=== PATIENT | female | born 1950 | race Caucasian/White ===

== ENCOUNTER 2017-12-29 02:40 | Outpatient (CLI) | payer MEDICARE, BC, SELFPAY ==
[2017-12-29 09:14] LABS: Anion Gap 7.1 mmol/L (3-11); BUN 31 mg/dL (7-18); CO2 26.9 mmol/L (21.0-32.0); CREATININE 1.81 mg/dL (0.55-1.02); Calcium 9.3 mg/dL (8.5-10.1); Chloride 106 mmol/L (98-107); Cholesterol 189 mg/dL (50-200); Estimated GFR 27.72 (mL/min/1.73m2); Glucose 108 mg/dL (70-100); HDL Cholesterol 58 mg/dL (40-60); LDL CHOLESTEROL 123 mg/dL (<100); Potassium 4.8 mmol/L (3.5-5.1); Sodium 140 mmol/L (136-145); Triglyceride 53 mg/dL (30-150)
== END 2017-12-29 03:00 ==
PROVIDERS: PCP Internal Medicine; Visit Provider Internal Medicine
DX: I10 Essential (primary) hypertension (principal)
CPT/HCPCS: 36415; 80048; 80061; 83721

== ENCOUNTER 2018-01-01 00:48 | Outpatient (CLI) | payer MEDICARE, BC, SELFPAY ==
--- NOTE | 2018-01-01 09:36 | DI.US_ITS ---
SYMPTOM/DIAGNOSIS: CIRRHOSIS, K74.60 ABDOMEN ULTRASOUND: Comparison is made with 06/08/17. Again noted is an abdominal aortic aneurysm with mural thrombus measuring 3.3 by 3.6 cm. It is not significantly changed due to differences in measurement error. The liver is normal in size and shows mild coarsening of the echo texture. No focal masses or ascites is seen. The spleen is normal in size. The kidneys appear normal. Mobile gallstones are noted. There is no gallbladder wall thickening or abnormal gallbladder distension. The pancreas is unremarkable. IMPRESSION: Mild liver changes of cirrhosis. Cholelithiasis. Stable abdominal aortic aneurysm.
== END 2018-01-01 01:08 ==
PROVIDERS: PCP Internal Medicine; Visit Provider Internal Medicine
DX: K74.60 Unspecified cirrhosis of liver (principal); K80.20 Calculus of gallbladder without cholecystitis without obstruction; I71.4 Abdominal aortic aneurysm, without rupture
CPT/HCPCS: 76700

== ENCOUNTER 2018-04-20 23:12 | Inpatient (IN) | payer MEDICARE, BC, SELFPAY ==
--- NOTE | 2018-04-20 00:30 | DI.CT_ITS ---
SYMPTOMS/DIAGNOSIS: HYPOXIC, RIGHT CRACKLES, H/O AAA, RENAL FAILURE CHEST, ABDOMINAL AND PELVIC CT: CT examination of the chest, abdomen and pelvis was performed without contrast administration. Note is made of cardiomegaly with left ventricular predominance. There are prominent bilateral septal opacities throughout both lungs and ground-glass opacities are seen, particularly dependently. There are moderate-sized bilateral pleural effusions. There is prominence of veins seen in superior mediastinum, which is a nonspecific finding. The findings are consistent with CHF. Venous dilatation may be related to CHF. Venous dilatation also appears to be present in the mesentery; due to the noncontrast study, there is uncertainty regarding dilated venous structures versus retroperitoneal adenopathy noted as well. Thoracic aorta is of normal diameter. Abdominal aorta is ectatic throughout with diameter of about 3.5 cm. Localized aneurysmal dilatation noted in the distal aorta measuring up to 4.2 cm in diameter, exact measurement is difficult due to the irregularity of the aortic wall. Exact comparison with the previous ultrasound of December 2017 is difficult, but maximal diameter of aorta is about 3.6 cm as measured on that examination. No significant iliac aneurysm seen. No other focal vascular abnormality seen. No gross mediastinal, hilar, axillary or supraclavicular adenopathy seen. Apart from possible retroperitoneal adenopathy, no additional adenopathy identified in the abdomen or pelvis. The liver and spleen are unremarkable by noncontrast criteria, as is the pancreas. Note is made of cholelithiasis without biliary dilatation. Appendix appears normal. No evidence of diverticulitis or bowel obstruction. Adrenals and kidneys are unremarkable in appearance. No evidence of urinary tract calcification or obstruction. Urinary bladder grossly unremarkable by noncontrast criteria. No significant abdominal wall hernia seen. CONCLUSION: 1. Findings consistent with CHF with pulmonary edema and bilateral pleural effusions. 2. Venous prominence noted in mediastinum and mesentery may be related to CHF. 3. Indeterminate findings, vascular prominence versus adenopathy in the retroperitoneum. 4. Ectatic abdominal aorta measuring roughly 3.5 cm in diameter with focal bilobed aneurysm of the distal abdominal aorta measuring up to 4.2 cm in diameter. No gross evidence of leaking aneurysm at this time.
[2018-04-20 23:30] VITALS: BP 193/92; BP 194/85; PULSE 101; PULSE 118; RESP 19; RESP 23; O2SAT 88; O2SAT 89
[2018-04-20 23:33] LABS: Abs Immature Grans 0.02 k/cumm (0.0-0.09); Absolute Basophil Count 0.08 k/cumm (0.0-0.2); Absolute Eosinophil Count 0.44 k/cumm (0.0-0.7); Absolute Lymphocyte Count 2.07 k/cumm (1.2-3.4); Absolute Monocyte Count 1.02 k/cumm (0.11-0.7); Absolute Neutrophil Count 6.32 k/cumm (1.2-6.7); Basophils % 0.8; Eosinophils % 4.4; HCT 39.1 % (36.0-46.0); HGB 14.1 g/dL (12.0-15.5); Immature Grans % 0.2; Lymphocytes % 20.8; Mean Corp. HGB Concentration 36.1 g/dL (32.0-36.0); Mean Corpuscular Hemoglobin 31.1 pg (27.0-33.0); Mean Corpuscular Volume 86.3 fL (80-95); Mean Platelet Volume 10.9 fL (8.0-11.0); Monocytes % 10.3; Neutrophils % 63.5; Platelet Count 327 x1000/uL (130-400); RBC 4.53 m/cumm (4.00-5.20); RBC Distribution Width 12.9 % (11.7-14.6); White Blood Cell Count 9.95 k/cumm (4.4-10.8)
--- NOTE | 2018-04-20 23:38 | ED.GENADUL_ITS ---
Discharge Plan Disposition Patient Disposition: [facility] Condition: Stable Discharge Details Chief Complaint: SOB Clinical Impression: CHF exacerbation, Acute respiratory failure, SOB (shortness of breath), Acute hypokalemia Primary Care Provider: Sanjuanita Lee ED Provider: Jerson Kellogg Home Meds and New Rx's Prescriptions: No Action atorvastatin 40 mg tablet 40 mg PO DAILY Qty: 90 RF: 3 pramipexole [Mirapex] 0.125 mg tablet 0.125 mg PO QPM Qty: 30 RF: 0 aspirin [Aspir-81] 81 MG tablet,delayed release (DR/EC) 81 mg PO DAILY RF: 0 cholecalciferol (vitamin D3) [Vitamin D3] 1,000 UNIT capsule 1,000 unit PO DAILY RF: 0 ibuprofen [Advil Liqui-Gel] 200 MG capsule 200 mg PO DAILY PRNRF: 0 calcium carbonate [Tums] 200 MG tablet,chewable 400 mg PO HS RF: 0 potassium gluconate 500 MG tablet 500 mg PO DAILY RF: 0 gabapentin 800 MG tablet 800 mg PO HS Qty: 90 RF: 3 Relax and Sleep 1 EACH tablet 1 ea PO HS RF: 0 amlodipine 10 mg tablet 5 mg PO DAILY RF: 0 furosemide 20 mg tablet 10 mg PO DAILY PRN (Reason: edema) RF: 0 metoprolol succinate 25 mg tablet extended release 24 hr 50 mg PO DAILY RF: 0 Medical Decision Making This is a pleasant 67-year-old female with a past medical history of AAA, history of ovarian cancer in the distant past, congestive heart failure on Lasix who recently just had a decrease in her Lasix, who presents today for shortness of breath. It is been present for the last 2 days. She has no history of significant respiratory difficulty in the past. She has had an associated cough that is nonproductive. She denies any recent weight gain. The family does admit to some mild swelling in the legs over the last few days. Upon patient arrival to the emergency department patient was hypoxic in the 60s. She had notable crackles and rhonchi in the right lower lung carranza. We initially started her on 10 L via nasal cannula however her oxygen did not come above 88% with this. We did start her on BiPAP and she tolerated this very well at 50% FiO2 the patient came back up to the 90s very rapidly. At this time differential includes congestive heart failure, less likely pneumonia, less likely potential pulmonary embolism, AAA. We will perform a laboratory and cardiac workup, get an x-ray for further evaluation of pulmonary etiologies. I believe the patient will require inpatient admission tonight secondary to her concerning vital signs 1:15 AM Patient's laboratory workup has returned and demonstrates notably low potassium, this will be repleted with IV and oral potassium. Renal function appears to be at her baseline which definitely represents chronic renal failure. Patient's proBNP is notably elevated at 27,000. Troponin is within normal limits at 0.06. The patient's chest x-ray and CT scan results have returned and demonstrates signs and symptoms consistent with notable pulmonary edema. I do feel that there is also some questionable infiltrate on CT and x-ray, and with her history of cough for the last few weeks I do feel that there may be a component of pneumonia playing into this in addition to her CHF component. We will cover wi th Rocephin and doxycycline for community-acquired pneumonia. Will use doxycycline secondary to her slightly prolonged QT interval. With her notably elevated proBNP I do feel that her signs and symptoms are clinically correlative with a CHF exacerbation. Patient has been given 20 of Lasix here and she is diuresing. Patient's d-dimer is also elevated however she has had a notable improvement after the BiPAP, and with the CT scan findings and the patient's clinical picture suggestive of CHF I feel that a pulmonary embolism is clinically inconsistent with her current symptomatology. Additionally the patient is not a candidate for CT angiogram at this time secondary to her renal function. We will hold off on CT angiogram at this time. Additionally the CT scan did show evidence of an abdominal aortic aneurysm measuring 3.4 x 3 cm. This appears to be consistent with her prior CT scans performed at [facility]. [facility] CT scan shows no evidence of rupture or other significant bnormality intra-abdominal. I discussed the case with Dr. Sharpe the hospitalist, he agrees with the assessment and plan. The patient will be admitted for further management. Diagnosis hypoxemia and CHF exacerbation. I have extensively reviewed the treatment plan with the patient. I have addressed all patient concerns at this time. I have also discussed the plan with the admitting physician and they agree with the current assessment and plan and have agreed to assume responsibility for the patient. All parties demonstrate verbal understanding and agreement with our assessment and plan at this time. EKG 23: 23 Rate 109, sinus tachycardia, CA is 140, QTc is slightly prolonged at 477, QRS is 94, sinus tachycardia. No significant ST elevations or depressions, no T wave inversions. No Q waves. Mild depth of QRS complex, however it is not equivalent to left ventricular hypertrophy Impression: 1. Mild cardiomegaly with mild vascular congestion. Probable mild interstitial edema. 2. Small bilateral pleural effusions. 3. Probable subsegmental atelectasis in the lung bases. Slightly increased opacity right medial lung base, correlate for any concern of superimposed pneumonia. Dictated and Authenticated by: Carrie Hernandez MD. FINDINGS: Lungs: Interlobular septal thickening, patchy groundglass opacities, dependent opacities in the lower lobes. Pleural space: Moderate, right greater than left pleural effusions. Heart: Coronary atherosclerosis. Mild cardiomegaly. Small pericardial effusion. Aorta: No aortic aneurysm. Lymph nodes: Prominent mediastinal lymph nodes. Subcarinal lymphadenopathy. Bones/joints: No acute fracture. Soft tissues: No suspicious lesions. IMPRESSION: Findings consistent with volume overload and/or CHF. Mediastinal adenopathy may be related to pulmonary edema. ABDOMEN and PELVIS: Intraperitoneal space: No free air. No significant fluid collection. Bones/joints: Degenerative changes in the spine. No acute fracture or subluxation. Soft tissues: No suspcious lesions. Vasculature: Bilobed infrarenal abdominal aortic aneurysm, measuring up to 34 x 30 mm. Suboptimally assessed without IV contrast. Moderate aortoiliac atherosclerosis. Lymph nodes: Hazy areas of low density in the retroperitoneum around the aorta, appear to surround prominent lymph nodes. No retroperitoneal hematoma. IMPRESSION: 1. Bilobed infrarenal abdominal aortic aneurysm, measuring up to 34 x 30 mm. Suboptimally assessed without IV contrast. No evidence of a significant rupture. 2. Hazy areas of low density in the retroperitoneum around the aorta, appear to surround prominent lymph nodes. No retroperitoneal hematoma. 3. Incidental findings as described. Dictated and Authenticated by: Carrie Hernandez MD. HPI General Date/Time Provider Initiated Documentation: 04/20/18 23:25 . HPI Narrative: This is a 67-year-old female with a past medical history of hypertension, high cholesterol, AAA, renal artery stenosis and chronic renal failure, as well as hepatitis B who presents today for evaluation of shortness of breath. Family states that since last night the patient has been notably short of breath. She does not have supplemental oxygen at home. She has no history of COPD. She has had a mild cough but it is been nonproductive. She denies any associated fever or chills. Patient does admit to mild back pain but denies any tearing chest pain, chest pain in general, chest heaviness, arm neck or shoulder pain. She does admit to notable shortness of breath, but denies any pleuritic chest pain. She denies any recent vomiting, retching, or diarrhea. Patient has noted over the last few days that she has been notably more hypertensive than on average. The patient denies being short of breath like this in the past. Denies PE risk factors such as recent long car rides, immobilization, recent surgery, prior history of DVT or PE, family history of PE or DVT, morbid obesity, exogenous estrogen and smoking, hemoptysis, or recent history of cancer. She did have ovarian cancer in the . She has had no recurrence since then. Her renal problems are being managed by [facility]. She did have a CT scan to reevaluate her AAA on 03/16/18 which demonstrated a fusiform abdominal aortic aneurysm with a maximal dimension of 3.7 cm in the infrarenal aorta. Additionally the patient did have some acute medicine changes. Her Lasix was recently cut from 20-10 mg daily, additionally her blood pressure medication amlodipine has been dropped from 10 mg daily to 5 mg. And 100 mg of daily metoprolol has been added. Patient denies any other modifying factors or any other complaints at this time. She denies any pertinent family history, or IV or illicit drug use. She denies any tobacco use. Related Data Home Medications Medication Instructions Recorded Confirmed aspirin [Aspir 81] 81 mg PO DAILY tab-cap 04/19/13 04/21/18 cholecalciferol (vitamin D3) 1,000 unit PO DAILY 11/28/14 04/21/18 [Vitamin D3] ibuprofen [Advil] 200 mg PO DAILY PRN 08/20/16 04/21/18 calcium carbonate [Tums] 400 mg PO HS tab.chew 06/02/17 04/21/18 gabapentin 800 mg PO HS #90 tab-cap 06/02/17 04/21/18 potassium gluconate 500 mg PO DAILY 06/02/17 04/21/18 [id number] 1 ea PO HS 12/18/17 04/21/18 [Relax & Sleep Tablet] atorvastatin 40 mg tablet 40 mg PO DAILY #90 tab 01/06/18 04/21/18 pramipexole 0.125 mg tablet 0.125 mg PO QPM #30 tab 01/06/18 04/21/18 amlodipine 5 mg PO DAILY 04/21/18 04/21/18 furosemide 10 mg PO DAILY PRN 04/21/18 04/21/18 metoprolol succinate 50 mg PO DAILY 04/21/18 04/21/18 Previous Rx's Medication Instructions Recorded gabapentin 800 mg PO HS #90 tab-cap 06/02/17 atorvastatin 40 mg tablet 40 mg PO DAILY #90 tab 01/06/18 pramipexole 0.125 mg tablet 0.125 mg PO QPM #30 tab 01/06/18 Allergies Allergy/AdvReac Type Severity Reaction Status Date / Time lisinopril AdvReac Mild Rise in Verified 04/21/18 00:11 creatinine Review of Systems Review of Systems All systems reviewed & are unremarkable except as noted in HPI and below PFSH Medical History HTN (hypertension) Hepatitis B (02/24/13) Surgical History Bilateral salpingectomy with oophorectomy Colonoscopy - MAC (09/27/12) EGD W/ BS (08/12/12) Hysterectomy, Laproscopic (~01/1984) Social History foster care: No household members: spouse housing: house lives independently: Yes number of children: 2 current occupational status: employed 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 3.ENT: Atraumatic external nose and ears. Moist MM. Neck: Symmetric, trachea midline, No thyromegaly. 4.CVS: +S1/S2, No murmurs or gallops. Peripheral pulses 2+ and equal in all extremities. Brisk capillary refill in all extremities. Radial pulses are +2 bilaterally and equal. 5.RESP: Notable tachypnea, notable crackles and rales in the right lower lung carranza. Decreased breath sounds in the right lower lung carranza. No wheezes. 6.GI: Soft, Nontender/Nondistended, No hepatosplenomegaly. No guarding or rebound. No bounding abdominal pulsatile mass. 7.MSK: Normocephalic/Atraumatic, Extremities w/o deformity or ttp No cyanosis or clubbing, Normal movement of all extremities. Minimal trace pitting edema in the lower extremities bilaterally. 8.Skin: Warm, Dry. No rashes or lesions. 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 Sensation grossly intact, no focal neurologic deficits. 10.Psych: (AAO) x3. Appropriate mood and affect
--- NOTE | 2018-04-20 23:40 | DI.RAD_ITS ---
SYMPTOMS/DIAGNOSIS: SHORTNESS OF BREATH, RIGHT CRACKLES PORTABLE AP CHEST: The heart is enlarged. There are bilateral diffuse intrapulmonary infiltrates and bilateral pleural effusions. The findings are consistent with CHF. Please see accompanying CT report.
[2018-04-20 23:46] VITALS: BP 181/87; PULSE 92; PULSE 93; RESP 20; O2SAT 96
[2018-04-20 23:50] LABS: ALT 34 U/L (12-78); AST 47 U/L (15-37); Albumin 2.1 g/dL (3.4-5.0); Alkaline Phosphatase 106 U/L (46-116); Anion Gap 8.9 mmol/L (3-11); BUN 38 mg/dL (7-18); Bilirubin, Total 0.4 mg/dL (0.2-1.0); CO2 28.1 mmol/L (21.0-32.0); CREATININE 1.87 mg/dL (0.55-1.02); Calcium 8.7 mg/dL (8.5-10.1); Chloride 93 mmol/L (98-107); Glucose 193 mg/dL (70-100); Sodium 130 mmol/L (136-145); Total Protein 6.7 g/dL (6.4-8.2); Troponin I 0.06 ng/mL (0.00-0.06)
[2018-04-20 23:51] LABS: Potassium 2.8 mmol/L (3.5-5.1)
[2018-04-20 23:55] LABS: PTT Activated 24.3 sec (21.0-31.4); Prothrombin Time 10.4 sec (9.3-11.0)
[2018-04-21] VITALS (63 sets, daily range): BP systolic 122–191; BP diastolic 76–102; PULSE 80–113; RESP 10–24; TEMP 36.5–37.2; O2SAT 78–98
[2018-04-21 00:06] LABS: D-Dimer 3636 ng/mlFEU (<500)
[2018-04-21] MEDS: Normal Saline 500 ML 1000 ML IV (00:06)
[2018-04-21] MEDS: POTASSIUM CHLORIDE 20 MEQ/100 ML BAG 50 MEQ IVPB (00:06)
[2018-04-21] MEDS: Potassium Chloride 20 MEQ TABCR 40 MEQ PO ×2 (00:06→10:28)
[2018-04-21 00:18] LABS: Magnesium 1.7 mg/dL (1.8-2.4)
--- NOTE | 2018-04-21 00:27 | DI.VRAD_ITS ---
EXAM: XR Chest, 1 View EXAM DATE/TIME: 04/20/2018 11:28 PM CLINICAL HISTORY: 67 years old, female; Signs and symptoms; Shortness of breath; Patient HX: SOB right crackles TECHNIQUE: XR of the chest, 1 view. COMPARISON: No relevant prior studies available. FINDINGS: Lungs: Probable subsegmental atelectasis in the lung bases. Slightly increased opacity right medial lung base. Pleural space: Small bilateral pleural effusions. No pneumothorax. Heart/Mediastinum: Mild cardiomegaly with mild vascular congestion. Probable mild interstitial edema. Bones/joints: No acute fracture. IMPRESSION: 1. Mild cardiomegaly with mild vascular congestion. Probable mild interstitial edema. 2. Small bilateral pleural effusions. 3. Probable subsegmental atelectasis in the lung bases. Slightly increased opacity right medial lung base, correlate for any concern of superimposed pneumonia. Dictated and Authenticated by: Carrie Hernandez MD. Ordering:JENNIFER Arthur MD
--- NOTE | 2018-04-21 00:57 | DI.VRAD_ITS ---
EXAM: CT Chest Without Contrast EXAM DATE/TIME: 04/20/2018 11:58 PM CLINICAL HISTORY: 67 years old, female; Pain; Other: Severe back pain; Prior surgery; Surgery date: 6+ months; Surgery type: Hysterectomy; Patient HX: Back pain, HX of aaa, no contrast due to elevated labs; Additional info: Creat 1.87 gfr 26.70 TECHNIQUE: Axial computed tomography images of the chest without intravenous contrast. All CT scans at this facility use at least one of these dose optimization techniques: automated exposure control; mA and/or kV adjustment per patient size (includes targeted exams where dose is matched to clinical indication); or iterative reconstruction. Coronal and sagittal reformatted images were created and reviewed. COMPARISON: CR XR PORTABLE CHEST AP 04/20/2018 11:36 PM FINDINGS: Lungs: Interlobular septal thickening, patchy groundglass opacities, dependent opacities in the lower lobes. Pleural space: Moderate, right greater than left pleural effusions. Heart: Coronary atherosclerosis. Mild cardiomegaly. Small pericardial effusion. Aorta: No aortic aneurysm. Lymph nodes: Prominent mediastinal lymph nodes. Subcarinal lymphadenopathy. Bones/joints: No acute fracture. Soft tissues: No suspicious lesions. IMPRESSION: Findings consistent with volume overload and/or CHF. Mediastinal adenopathy may be related to pulmonary edema. EXAM: CT Abdomen and Pelvis Without Contrast EXAM DATE/TIME: 04/20/2018 11:58 PM CLINICAL HISTORY: 67 years old, female; Pain; Other: Severe back pain; Prior surgery; Surgery date: 6+ months; Surgery type: Hysterectomy; Patient HX: Back pain, HX of aaa, no contrast due to elevated labs; Additional info: Creat 1.87 gfr 26.70 TECHNIQUE: Axial computed tomography images of the abdomen and pelvis without contrast. All CT scans at this facility use at least one of these dose optimization techniques: automated exposure control; mA and/or kV adjustment per patient size (includes targeted exams where dose is matched to clinical indication); or iterative reconstruction. Coronal and sagittal reformatted images were created and reviewed. COMPARISON: CR XR PORTABLE CHEST AP 04/20/2018 11:36 PM FINDINGS: Lower thorax: Regarding the lung bases, please see same day CT thorax. ABDOMEN: Liver: No mass. Gallbladder and bile ducts: Cholelithiasis. No pericholecystic edema. Pancreas: No ductal dilation. No masses. Spleen: No splenomegaly or focal lesions. Adrenals: No mass. Kidneys and ureters: No hydronephrosis. Stomach and bowel: No obstruction. No mucosal thickening. Appendix: No evidence of appendicitis. PELVIS: Bladder: The urinary bladder is distended. Reproductive: Hysterectomy versus diminutive postmenopausal uterus. ABDOMEN and PELVIS: Intraperitoneal space: No free air. No significant fluid collection. Bones/joints: Degenerative changes in the spine. No acute fracture or subluxation. Soft tissues: No suspcious lesions. Vasculature: Bilobed infrarenal abdominal aortic aneurysm, measuring up to 34 x 30 mm. Suboptimally assessed without IV contrast. Moderate aortoiliac atherosclerosis. Lymph nodes: Hazy areas of low density in the retroperitoneum around the aorta, appear to surround prominent lymph nodes. No retroperitoneal hematoma. IMPRESSION: 1. Bilobed infrarenal abdominal aortic aneurysm, measuring up to 34 x 30 mm. Suboptimally assessed without IV contrast. No evidence of a significant rupture. 2. Hazy areas of low density in the retroperitoneum around the aorta, appear to surround prominent lymph nodes. No retroperitoneal hematoma. 3. Incidental findings as described. Dictated and Authenticated by: Carrie Hernandez MD. Ordering:JENNIFER Arthur MD
[2018-04-21] MEDS: Furosemide 20 MG/2 ML VIAL IVP (01:07)
[2018-04-21] MEDS: DOXYCYCLINE 100 MG in Normal Saline 100 ML IVPB (01:26)
--- NOTE | 2018-04-21 02:12 | HPE_ITS ---
Date of service: 04/21/18 Time of Service: 01:54 Assessment and Plan (1) SOB (shortness of breath): Current visit: Yes Status: Acute Shortness of breath. I think this is all congestive heart failure. There is no documentation of prior such diagnosis so this would at this point apparently be new diagnosis. Regardless underlying etiology unclear at present though immediate precipitant may have related to dietary indiscretion as well as downward titration of diuretics. Interestingly patient appears to be improving fairly significantly at the moment without as of yet any diuresis raising the question of a transient lesion (question transient ischemia). Regardless of the underlying question turner at this point I will increase the diuresis, plan on cardiac ultrasound and will trend out the troponins. I do not see a strong case for diagnosis of pneumonia and I am not sure that continuing antibiotics is indicated. Patient has received potassium supplement here in the emergency room and will recheck that as well.. I did review advanced directives with the patient and she wishes to be full code History of Present Illness Chief Complaint: Shortness of breath Narrative: Patient is a 67-year-old female with history of hypertension, chronic renal insufficiency and peripheral edema of unspecified etiology. She denies history of congestive heart failure. She comes in with several days of orthopnea manifesting with shortness of breath with recumbency associated with dry cough. She denies any recent leg swelling. There has been some recent adjustment in her medications, she is not sure exactly what except that her baseline dose of Lasix has been reduced. She also allows that over the last several days she has been eating more robustly than usually, including various meat products. at any rate she came to the emergency room tonight with increasing shortness of breath. Initial evaluation of note for her oxygen saturations as low as the 60s and clear respiratory distress. She was initially managed with BiPAP but has had decreasing oxygen requirement since and is now on 10 L nasal cannula and feeling quite comfortable she says. She did receive 20 units of IV Lasix approximately 50 minutes ago, has had no urine output. Throughout she denies any chest pain. She is admitted for further evaluation and management let me add that she also received a dose of Rocephin and doxycycline in the emergency room out of concern on x-ray of possible pneumonitis. Past medical history hypertension renal insufficiency renal artery stenosis abdominal aneurysm history of painless jaundice 2012, unknown etiology Allergies to lisinopril (worsening renal failure) Medications Norvasc 5 daily aspirin 81 daily Lipitor 40 daily Tums, vitamin D Lasix 10 daily Neurontin 800 at bedtime as needed Advil Lopressor 50 daily potassium supplements Mirapex 0.125 at bedtime, [id number] relax and sleep medication Physical exam blood pressure 181/87 pulse 93 respirations 24 O2 sat 91-96% on 10 L temp 37.2. Patient is lying semirecumbent in the stretcher and appears entirely comfortable. HEENT is unremarkable. Neck shows jugular pulse approximately 8-10 cm lungs show fine basilar rales approximately one third up bilaterally. Heart shows PMI is not displaced but is somewhat hypodynamic. There is a regular rate and rhythm without murmurs rubs or gallops. Abdomen is soft and nontender. Pelvic and rectal exams deferred. Extremities without edema, pulses 2+ and equal Laboratory: White count is 9.9 hematocrit 39 platelet 327 d-dimer 3636 sodium 130 potassium 2.8 chloride 93 bicarb 28 BUN 38 creatinine 1.8 glucose 193 magnesium 1.7 AST 47 ALT 34 total bilirubin 0.4 troponin is 0.06 BNP 27,000 chest x-ray shows borderline heart size and mild pulmonary edema EKG shows sinus tachycardia with left atrial enlargement and nonspecific T wave flattening Review of Systems Review of Systems All systems reviewed & are unremarkable except as noted in HPI and below PFSH Medical History HTN (hypertension) Hepatitis B (02/24/13) Surgical History Bilateral salpingectomy with oophorectomy Colonoscopy - MAC (09/27/12) EGD W/ BS (08/12/12) Hysterectomy, Laproscopic (~01/1984) Family History Grandmother Essential hypertension Social History foster care: No household members: spouse housing: house lives independently: Yes number of children: 2 current occupational status: employed 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 Smoking/Tobacco Use Status: Former Tobacco Use alcohol intake: current alcohol intake frequency: holidays/special occasions only substance use type: does not use drive intox or ride w/ intox 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 Meds Home Medications Medication Instructions Recorded Confirmed Type aspirin [Aspir 81] 81 mg PO DAILY tab-cap 04/19/13 04/21/18 History cholecalciferol (vitamin D3) 1,000 unit PO DAILY 11/28/14 04/21/18 History [Vitamin D3] ibuprofen [Advil] 200 mg PO DAILY PRN 08/20/16 04/21/18 History calcium carbonate [Tums] 400 mg PO HS tab.chew 06/02/17 04/21/18 History gabapentin 800 mg PO HS #90 tab-cap 06/02/17 04/21/18 Rx potassium gluconate 500 mg PO DAILY 06/02/17 04/21/18 History [id number] 1 ea PO HS 12/18/17 04/21/18 History [Relax & Sleep Tablet] atorvastatin 40 mg tablet 40 mg PO DAILY #90 tab 01/06/18 04/21/18 Rx pramipexole 0.125 mg tablet 0.125 mg PO QPM #30 tab 01/06/18 04/21/18 Rx amlodipine 5 mg PO DAILY 04/21/18 04/21/18 History furosemide 10 mg PO DAILY PRN 04/21/18 04/21/18 History metoprolol succinate 50 mg PO DAILY 04/21/18 04/21/18 History Allergies Allergy/AdvReac Type Severity Reaction Status Date / Time lisinopril AdvReac Mild Rise in Verified 04/21/18 00:11 creatinine Exam Narrative Exam Narrative: per HPI Results Labs : 04/20/18 23:26 04/20/18 23:26 Laboratory Results - last 24 hr 04/20/18 04/20/18 04/20/18 23:26 23:26 23:26 WBC 9.95 RBC 4.53 Hgb 14.1 Hct 39.1 MCV 86.3 MCH 31.1 MCHC 36.1 H RDW 12.9 Plt Count 327 MPV 10.9 Immature Gran % 0.2 Neutrophils % 63.5 Lymphocytes % 20.8 Monocytes % 10.3 Eosinophils % 4.4 Basophils % 0.8 Absolute Neutrophils 6.32 Absolute Lymphocytes 2.07 Absolute Monocytes 1.02 H Absolute Eosinophils 0.44 Absolute Basophils 0.08 PT INR APTT D-Dimer 3636 H Sodium 130 L Potassium 2.8 L* Chloride 93 L Carbon Dioxide 28.1 Anion Gap 8.9 BUN 38 H Creatinine 1.87 H Estimated GFR/1.73 m2 26.70 Glucose 193 H Calcium 8.7 Magnesium Total Bilirubin 0.4 AST 47 H ALT 34 Alkaline Phosphatase 106 Troponin I 0.06 NT-Pro-B Natriuret Pep Total Protein 6.7 Albumin 2.1 L 04/20/18 04/20/18 04/21/18 23:26 23:26 00:00 WBC RBC Hgb Hct MCV MCH MCHC RDW Plt Count MPV Immature Gran % Neutrophils % Lymphocytes % Monocytes % Eosinophils % Basophils % Absolute Neutrophils Absolute Lymphocytes Absolute Monocytes Absolute Eosinophils Absolute Basophils PT 10.4 INR 1.0 APTT 24.3 D-Dimer Sodium Potassium Chloride Carbon Dioxide Anion Gap BUN Creatinine Estimated GFR/1.73 m2 Glucose Calcium Magnesium 1.7 L Total Bilirubin AST ALT Alkaline Phosphatase Troponin I NT-Pro-B Natriuret Pep 42376 H Total Protein Albumin Last Vital Signs Pulse 92 H 04/20/18 23:46 Resp 24 04/21/18 01:43 BP 181/87 H 04/20/18 23:46 Pulse Ox 96 04/20/18 23:46
[2018-04-21] MEDS: Furosemide 40 MG/4 ML VIAL IVP ×3 (02:31→15:55)
[2018-04-21 07:23] LABS: Potassium 3.2 mmol/L (3.5-5.1)
[2018-04-21 07:53] LABS: Bilirubin Negative (Negative); Blood Negative (Negative); Clarity Clear; Glucose Negative (Negative); Ketones Negative (Negative); Leukocyte Esterase Negative (Negative); Nitrite Negative (Negative); Specific Gravity 1.015 (1.005-1.025); Urobilinogen 0.2 EU/dL (Up TO 0.2)
[2018-04-21 07:57] LABS: Troponin I 0.08 ng/mL (0.00-0.06)
[2018-04-21 08:04] LABS: Bacteria Moderate HPF (Negative); C & S Indicated? Yes; Casts Negative LPF (Negative); Crystals Negative HPF (Negative); Epithelial Cells Few HPF (Negative); Mucus Trace (Negative); Other Cells Few Renal (Negative); RBC Negative (0-2)
[2018-04-21] MEDS: amLODIPine 10 MG TAB 5 MG PO (08:50)
[2018-04-21] MEDS: Metoprolol CR 50 MG TABCR PO (08:50)
[2018-04-21] MEDS: Aspirin E.C. 81 MG TABEC PO (08:50)
[2018-04-21] MEDS: Atorvastatin 40 MG TAB PO (08:50)
[2018-04-21] MEDS: Normal Saline Flush 10 ML SYR ×2 (10:27→15:55)
[2018-04-21] MEDS: MAGNESIUM SULFATE 2 GM/50 ML BAG IVPB (10:27)
[2018-04-21 10:41] LABS: Anion Gap 9.8 mmol/L (3-11); BUN 35 mg/dL (7-18); CO2 29.2 mmol/L (21.0-32.0); Calcium 8.3 mg/dL (8.5-10.1); Chloride 98 mmol/L (98-107); FREE T4 0.97 ng/dL (0.76-1.46); Glucose 127 mg/dL (70-100); Sodium 137 mmol/L (136-145); TSH 4.85 uIU/mL (0.358-3.74)
--- NOTE | 2018-04-21 11:55 | W.CARDCONSUL ---
Date of service: 04/21/18 Time of Service: 11:55 Assessment and Plan (1) SOB (shortness of breath): Current visit: Yes Status: Acute Signs and symptoms are consistent with acute heart failure complicated by cardiorenal syndrome. Type of heart failure most likely diastolic. Exacerbation driven by high sodium intake, accelerated hypertension and decrease in diuretics. Importance of low-sodium diet (DASH-diet), daily weight and how to dose outpatient diuretics discussed. Continue forced diuresis with goal net 500 to 1000 cc daily. An echocardiogram to determine etiology of heart failure. If LVEF less than 40% obtain stress test prior to discharge to assess for ischemia. However, decreased LV function could also be caused by uncontrolled hypertension. If blood pressure persistently greater 140, increase amlodipine to 10 mg daily. Patient is being followed by [facility] vascular regarding her renal artery stenosis. Angioplasty has been reserved for respiratory hypertension. Blood pressure remains difficult to control consider outpatient nephrology consult. Mild troponin elevation without evidence of [place] woman in acute heart failure exacerbation. Continue aspirin, metoprolol and atorvastatin without dose adjustments. History of Present Illness Chief Complaint: Shortness of breath Narrative: 67-year-old woman with 3.7 cm abdominal aortic aneurysm, renal artery stenosis, hyperlipidemia and hypertension. Over the last few days she has been feeling more shortness of breath to the point that she was unable to lie flat. Her appetite has been poor. She has been experiencing early satiety. She has not noticed much edema. 2 days prior to onset of symptoms furosemide was decreased by 50%. Over the last few days she has had sodium rich food. Blood pressure upon admission was in the 180s. She was hypoxic requiring BiPAP. She has now been transitioned to nasal cannula. IV diuresis was started with improvement in symptoms. She has lost about 5 pounds. EKG was negative for acute ischemic changes. Troponin has peaked at 0.08. Creatinine was elevated at 1.87. He denies chest pain, palpitations, syncope, claudication, focal deficits, bleeding or bruising, or symptoms. ROS: 10 point ROS was performed; all pertinent positives as mentioned in HPI, all others negative. Allergies reviewed and include lisinopril. Medications reviewed. Medications include amlodipine 5 mg daily, aspirin 81 mg daily, atorvastatin 40 mg daily, metoprolol succinate 50 mill grams daily, and furosemide 80 mg twice daily. [facility] reviewed; pertinent history as mentioned in HPI. Social history: Non-smoker. No alcohol. Family history no premature coronary artery disease. PHYSICAL EXAM General: pleasant, no acute distress HEENT: Anicteric, mucus membranes moist Neck: Supple, hepatojugular reflex present, brisk carotid upstrokes, no bruits Chest: Non-tender Lungs: Absent breath sounds at both lung bases otherwise clear to auscultation bilaterally, no crackles or wheezes Cardiac: Regular rate, regular rhythm, normal S1S2, no murmurs Abdomen: Soft, non-tender, bowel sounds present Extremities: No clubbing, cyanosis or edema, equal pulses in all 4 extremities Skin: Warm and dry, no rashes Neuro: Alert and oriented x3, grossly intact DATA Telemetry independently visualized to show sinus rhythm with occasional PVCs. No tachycardia or bradycardia arrhythmias. EKG from admission reviewed and interpreted to show sinus rhythm with normal axis and intervals and no ischemic changes. Heart rate 109, RI 140 ms, QRS 94 ms, QT 354 ms. Laboratory data reviewed and notable for a potassium 3.2, creatinine 1.87, troponin 0 0.08 and NT proBNP 27,000. 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 Smoking/Tobacco Use Status: Former Tobacco Use alcohol intake: current alcohol intake frequency: holidays/special occasions only substance use type: does not use drive intox or ride w/ intox 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 Results Last Vital Signs Temp 37.1 C 04/21/18 08:20 Pulse 88 04/21/18 09:00 Resp 14 04/21/18 10:00 BP 164/84 H 04/21/18 09:00 Pulse Ox 92 L 04/21/18 10:00 Labs : 04/20/18 23:26 04/21/18 06:50 Laboratory Results - last 24 hr 04/20/18 04/20/18 04/20/18 23:26 23:26 23:26 WBC 9.95 RBC 4.53 Hgb 14.1 Hct 39.1 MCV 86.3 MCH 31.1 MCHC 36.1 H RDW 12.9 Plt Count 327 MPV 10.9 Immature Gran % 0.2 Neutrophils % 63.5 Lymphocytes % 20.8 Monocytes % 10.3 Eosinophils % 4.4 Basophils % 0.8 Absolute Neutrophils 6.32 Absolute Lymphocytes 2.07 Absolute Monocytes 1.02 H Absolute Eosinophils 0.44 Absolute Basophils 0.08 PT INR APTT D-Dimer 3636 H Sodium 130 L Potassium 2.8 L* Chloride 93 L Carbon Dioxide 28.1 Anion Gap 8.9 BUN 38 H Creatinine 1.87 H Estimated GFR/1.73 m2 26.70 Glucose 193 H Calcium 8.7 Magnesium Total Bilirubin 0.4 AST 47 H ALT 34 Alkaline Phosphatase 106 Troponin I 0.06 NT-Pro-B Natriuret Pep Total Protein 6.7 Albumin 2.1 L TSH Free T4 Urine Color Urine Clarity Urine pH Ur Specific [place] Urine Protein Urine Ketones Urine Blood Urine Nitrite Urine Bilirubin Urine Urobilinogen Ur Leukocyte Esterase Urine RBC Urine WBC Ur Epithelial Cells Urine Crystals Urine Bacteria Urine Casts Urine Mucus Urine Other Ur Culture Indicated? Urine Glucose 04/20/18 04/20/18 04/21/18 23:26 23:26 00:00 WBC RBC Hgb Hct MCV MCH MCHC RDW Plt Count MPV Immature Gran % Neutrophils % Lymphocytes % Monocytes % Eosinophils % Basophils % Absolute Neutrophils Absolute Lymphocytes Absolute Monocytes Absolute Eosinophils Absolute Basophils PT 10.4 INR 1.0 APTT 24.3 D-Dimer Sodium Potassium Chloride Carbon Dioxide Anion Gap BUN Creatinine Estimated GFR/1.73 m2 Glucose Calcium Magnesium 1.7 L Total Bilirubin AST ALT Alkaline Phosphatase Troponin I NT-Pro-B Natriuret Pep 76634 H Total Protein Albumin TSH Free T4 Urine Color Urine Clarity Urine pH Ur Specific [place] Urine Protein Urine Ketones Urine Blood Urine Nitrite Urine Bilirubin Urine Urobilinogen Ur Leukocyte Esterase Urine RBC Urine WBC Ur Epithelial Cells Urine Crystals Urine Bacteria Urine Casts Urine Mucus Urine Other Ur Culture Indicated? Urine Glucose 04/21/18 04/21/18 04/21/18 06:50 06:50 07:05 WBC RBC Hgb Hct MCV MCH MCHC RDW Plt Count MPV Immature Gran % Neutrophils % Lymphocytes % Monocytes % Eosinophils % Basophils % Absolute Neutrophils Absolute Lymphocytes Absolute Monocytes Absolute Eosinophils Absolute Basophils PT INR APTT D-Dimer Sodium 137 Potassium 3.2 L Chloride 98 Carbon Dioxide 29.2 Anion Gap 9.8 BUN 35 H Creatinine 1.80 H Estimated GFR/1.73 m2 27.90 Glucose 127 H Calcium 8.3 L Magnesium Total Bilirubin AST ALT Alkaline Phosphatase Troponin I 0.08 H NT-Pro-B Natriuret Pep Total Protein Albumin TSH 4.85 H Free T4 0.97 Urine Color Yellow Urine Clarity Clear Urine pH 7.0 Ur Specific [place] 1.015 Urine Protein 100 H Urine Ketones Negative Urine Blood Negative Urine Nitrite Negative Urine Bilirubin Negative Urine Urobilinogen 0.2 Ur Leukocyte Esterase Negative Urine RBC Negative Urine WBC 3-5 Ur Epithelial Cells Few Urine Crystals Negative Urine Bacteria Moderate Urine Casts Negative Urine Mucus Trace Urine Other Few renal Ur Culture Indicated? Yes Urine Glucose Negative
--- NOTE | 2018-04-21 12:01 | CCONE_ITS ---
Date of service: 04/21/18 Time of Service: 11:55 Assessment and Plan (1) SOB (shortness of breath): Current visit: Yes Status: Acute Signs and symptoms are consistent with acute heart failure complicated by cardiorenal syndrome. Type of heart failure most likely diastolic. Exacerbation driven by high sodium intake, accelerated hypertension and decrease in diuretics. Importance of low-sodium diet (DASH-diet), daily weight and how to dose outpatient diuretics discussed. Continue forced diuresis with goal net 500 to 1000 cc daily. An echocardiogram to determine etiology of heart failure. If LVEF less than 40% obtain stress test prior to discharge to assess for ischemia. However, decreased LV function could also be caused by uncontrolled hypertension. If blood pressure persistently greater 140, increase amlodipine to 10 mg daily. Patient is being followed by [facility] vascular regarding her renal artery stenosis. Angioplasty has been reserved for respiratory hypertension. Blood pressure remains difficult to control consider outpatient nephrology consult. Mild troponin elevation without evidence of [place] woman in acute heart failure exacerbation. Continue aspirin, metoprolol and atorvastatin without dose adjustments. History of Present Illness Chief Complaint: Shortness of breath Narrative: 67-year-old woman with 3.7 cm abdominal aortic aneurysm, renal artery stenosis, hyperlipidemia and hypertension. Over the last few days she has been feeling more shortness of breath to the p oint that she was unable to lie flat. Her appetite has been poor. She has been experiencing early satiety. She has not noticed much edema. 2 days prior to onset of symptoms furosemide was decreased by 50%. Over the last few days she has had sodium rich food. Blood pressure upon admission was in the 180s. She was hypoxic requiring BiPAP. She has now been transitioned to nasal cannula. IV diuresis was started with improvement in symptoms. She has lost about 5 pounds. EKG was negative for acute ischemic changes. Troponin has peaked at 0.08. Creatinine was elevated at 1.87. He denies chest pain, palpitations, syncope, claudication, focal deficits, bleeding or bruising, or symptoms. ROS: 10 point ROS was performed; all pertinent positives as mentioned in HPI, all others negative. Allergies reviewed and include lisinopril. Medications reviewed. Medications include amlodipine 5 mg daily, aspirin 81 mg daily, atorvastatin 40 mg daily, metoprolol succinate 50 mill grams daily, and furosemide 80 mg twice daily. [facility] reviewed; pertinent history as mentioned in HPI. Social history: Non-smoker. No alcohol. Family history no premature coronary artery disease. PHYSICAL EXAM General: pleasant, no acute distress HEENT: Anicteric, mucus membranes moist Neck: Supple, hepatojugular reflex present, brisk carotid upstrokes, no bruits Chest: Non-tender Lungs: Absent breath sounds at both lung bases otherwise clear to auscultation bilaterally, no crackles or wheezes Cardiac: Regular rate, regular rhythm, normal S1S2, no murmurs Abdomen: Soft, non-tender, bowel sounds present Extremities: No clubbing, cyanosis or edema, equal pulses in all 4 extremities Skin: Warm and dry, no rashes Neuro: Alert and oriented x3, grossly intact DATA Telemetry independently visualized to show sinus rhythm with occasional PVCs. No tachycardia or bradycardia arrhythmias. EKG from admission reviewed and interpreted to show sinus rhythm with normal axis and intervals and no ischemic changes. Heart rate 109, [place] 140 ms, QRS 94 ms, QT 354 ms. Laboratory data reviewed and notable for a potassium 3.2, creatinine 1.87, troponin 0 0.08 and NT proBNP 27,000. 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 Smoking/Tobacco Use Status: Former Tobacco Use alcohol intake: current alcohol intake frequency: holidays/special occasions only substance use type: does not use drive intox or ride w/ intox 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 Results Last Vital Signs Temp 37.1 C 04/21/18 08:20 Pulse 88 12/26/18 09:00 Resp 14 04/21/18 10:00 BP 164/84 H 04/21/18 09:00 Pulse Ox 92 L 04/21/18 10:00 Labs : 04/20/18 23:26 04/21/18 06:50 Laboratory Results - last 24 hr 04/20/18 04/20/18 04/20/18 23:26 23:26 23:26 WBC 9.95 RBC 4.53 Hgb 14.1 Hct 39.1 MCV 86.3 MCH 31.1 MCHC 36.1 H RDW 12.9 Plt Count 327 MPV 10.9 Immature Gran % 0.2 Neutrophils % 63.5 Lymphocytes % 20.8 Monocytes % 10.3 Eosinophils % 4.4 Basophils % 0.8 Absolute Neutrophils 6.32 Absolute Lymphocytes 2.07 Absolute Monocytes 1.02 H Absolute Eosinophils 0.44 Absolute Basophils 0.08 PT INR APTT D-Dimer 3636 H Sodium 130 L Potassium 2.8 L* Chloride 93 L Carbon Dioxide 28.1 Anion Gap 8.9 BUN 38 H Creatinine 1.87 H Estimated GFR/1.73 m2 26.70 Glucose 193 H Calcium 8.7 Magnesium Total Bilirubin 0.4 AST 47 H ALT 34 Alkaline Phosphatase 106 Troponin I 0.06 NT-Pro-B Natriuret Pep Total Protein 6.7 Albumin 2.1 L TSH Free T4 Urine Color Urine Clarity Urine pH Ur Specific [place] Urine Protein Urine Ketones Urine Blood Urine Nitrite Urine Bilirubin Urine Urobilinogen Ur Leukocyte Esterase Urine RBC Urine WBC Ur Epithelial Cells Urine Crystals Urine Bacteria Urine Casts Urine Mucus Urine Other Ur Culture Indicated? Urine Glucose 04/20/18 04/20/18 04/21/18 23:26 23:26 00:00 WBC RBC Hgb Hct MCV MCH MCHC RDW Plt Count MPV Immature Gran % Neutrophils % Lymphocytes % Monocytes % Eosinophils % Basophils % Absolute Neutrophils Absolute Lymphocytes Absolute Monocytes Absolute Eosinophils Absolute Basophils PT 10.4 INR 1.0 APTT 24.3 D-Dimer Sodium Potassium Chloride Carbon Dioxide Anion Gap BUN Creatinine Estimated GFR/1.73 m2 Glucose Calcium Magnesium 1.7 L Total Bilirubin AST ALT Alkaline Phosphatase Troponin I NT-Pro-B Natriuret Pep 88673 H Total Protein Albumin TSH Free T4 Urine Color Urine Clarity Urine pH Ur Specific [place] Urine Protein Urine Ketones Urine Blood Urine Nitrite Urine Bilirubin Urine Urobilinogen Ur Leukocyte Esterase Urine RBC Urine WBC Ur Epithelial Cells Urine Crystals Urine Bacteria Urine Casts Urine Mucus Urine Other Ur Culture Indicated? Urine Glucose 04/21/18 04/21/18 04/21/18 06:50 06:50 07:05 WBC RBC Hgb Hct MCV MCH MCHC RDW Plt Count MPV Immature Gran % Neutrophils % Lymphocytes % Monocytes % Eosinophils % Basophils % Absolute Neutrophils Absolute Lymphocytes Absolute Monocytes Absolute Eosinophils Absolute Basophils PT INR APTT D-Dimer Sodium 137 Potassium 3.2 L Chloride 98 Carbon Dioxide 29.2 Anion Gap 9.8 BUN 35 H Creatinine 1.80 H Estimated GFR/1.73 m2 27.90 Glucose 127 H Calcium 8.3 L Magnesium Total Bilirubin AST ALT Alkaline Phosphatase Troponin I 0.08 H NT-Pro-B Natriuret Pep Total Protein Albumin TSH 4.85 H Free T4 0.97 Urine Color Yellow Urine Clarity Clear Urine pH 7.0 Ur Specific [place] 1.015 Urine Protein 100 H Urine Ketones Negative Urine Blood Negative Urine Nitrite Negative Urine Bilirubin Negative Urine Urobilinogen 0.2 Ur Leukocyte Esterase Negative Urine RBC Negative Urine WBC 3-5 Ur Epithelial Cells Few Urine Crystals Negative Urine Bacteria Moderate Urine Casts Negative Urine Mucus Trace Urine Other Few renal Ur Culture Indicated? Yes Urine Glucose Negative
[2018-04-21 12:32] LABS: Troponin I 0.06 ng/mL (0.00-0.06)
--- NOTE | 2018-04-21 12:40 | MERGE_ITS ---
*[facility]* *[facility]* [address] [place] [address] Date of study: 04/21/2018 Transthoracic Echocardiography M-mode, complete 2D, complete spectral Doppler, and color Doppler *STUDY CONCLUSIONS* Summary: 1. Left ventricle: The cavity size was normal. Wall thickness was increased in a pattern of mild LVH. Systolic function was moderately reduced. The estimated ejection fraction was 35-40%. Diffuse hypokinesis. Doppler parameters are consistent with elevated mean left atrial filling pressure. 2. Mitral valve: Structurally normal valve. There was moderate regurgitation. 3. Right ventricle: The cavity size was normal. Wall thickness was normal. Systolic function was normal. 4. Pulmonary arteries: Pulmonary systolic pressure was increased, in the range of 50mm Hg to 55mm Hg. 5. Pericardium, extracardiac: A trivial pericardial effusion was identified circumferential to the heart. There was a right pleural effusion. There was a left pleural effusion. *PATIENT PRESENTATION* Height: 152.4cm ((60in) ) S/D Pressure: 164 / 84 Weight: 50.8kg ((111.8lb) ) BSA: 1.47m^2 Test start time: 12:40 PM. Test stop time: 01:50 PM. 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 This study was interpreted by [facility]. Pertinent images and digital data are archived for permanent storage and are available for subsequent review. No prior study was available for comparison. Study status: Routine. Transthoracic echocardiography. M-mode, complete 2D, complete spectral Doppler, and color Doppler. A Transthoracic Echocardiogram was performed. Scanning was performed from the parasternal, apical, subcostal, and suprasternal notch acoustic windows. Images were obtained using an [id number] cardiac ultrasound machine. Image quality was adequate. Study completion: The patient tolerated the procedure well. History: PMH: CHF. *CARDIAC ANATOMY* Left ventricle: The cavity size was normal. Wall thickness was increased in a pattern of mild LVH. Systolic function was moderately reduced. The estimated ejection fraction was 35-40%. Diffuse hypokinesis. Doppler parameters are consistent with elevated mean left atrial filling pressure. Aortic valve: Trileaflet; normal thickness leaflets. Mobility was not restricted. Doppler: Transvalvular velocity was within the normal range. There was no stenosis. There was no significant regurgitation. VTI ratio of LVOT to aortic valve: 0.66. Valve area (VTI): 2cm^2. Indexed valve area (VTI): 1.3cm^2/m^2. Peak velocity ratio of LVOT to aortic valve: 0.69. Valve area (Vmax): 2.1cm^2. Indexed valve area (Vmax): 1.4cm^2/m^2. Mean velocity ratio of LVOT to aortic valve: 0.68. Valve area (Vmean): 2.1cm^2. Indexed valve area (Vmean): 1.4cm^2/m^2. Mean gradient (S): 3.4mm Hg. Peak gradient (S): 4.6mm Hg. Aorta: Aortic root: The aortic root was normal in size. Mitral valve: Structurally normal valve. Mobility was not restricted. Doppler: Transvalvular velocity was within the normal range. There was no evidence for stenosis. There was moderate regurgitation. Valve area by pressure half-time: 7.4cm^2. Indexed valve area by pressure half-time: 5cm^2/m^2. Peak gradient (D): 6.1mm Hg. Left atrium: The atrium was normal in size. Right ventricle: The cavity size was normal. Wall thickness was normal. Systolic function was normal. Pulmonic valve: Doppler: Transvalvular velocity was within the normal range. There was no evidence for stenosis. There was no significant regurgitation. Tricuspid valve: Structurally normal valve. Doppler: Transvalvular velocity was within the normal range. There was no evidence for stenosis. There was mild regurgitation. Pulmonary artery: Pulmonary systolic pressure was increased, in the range of 50mm Hg to 55mm Hg. Right atrium: The atrium was normal in size. Pericardium: A trivial pericardial effusion was identified circumferential to the heart. Systemic veins: Inferior vena cava: Well visualized. The vessel was patent and normal in size. The respirophasic diameter changes were in the normal range (greater than or equal to 50%). Pleura: There was a right pleural effusion. There was a left pleural effusion. Baseline ECG: Normal sinus rhythm. Measurements Left ventricle Value Reference LV ID, ED, PLAX 4.4 cm 3.5 - 6.0 LV ID, ES, PLAX 3.6 cm 2.1 - 4.0 LV PW thickness, ED, PLAX 1.2 cm LV end-diastolic volume, 1-p A2C 79 ml LV ejection fraction, 1-p A2C 39 % LV end-diastolic volume, 1-p A4C 85 ml LV ejection fraction, 1-p A4C 32 % LV e', lateral 0.05 m/sec LV E/e', lateral 25 LV e', medial 0.049 m/sec LV E/e', medial 25 LV e', average 0.05 m/sec LV E/e', average 25 Ventricular septum Value Reference IVS thickness, ED, PLAX 1.2 cm LVOT Value Reference LVOT ID, A-P 2.0 cm LVOT area 3 cm^2 LVOT peak velocity, S 0.74 m/sec LVOT mean velocity, S 0.62 m/sec LVOT VTI, S 15.1 cm LVOT peak gradient, S 2.2 mm Hg LVOT mean gradient, S 1.6 mm Hg Stroke volume (SV), LVOT DP 46 ml Stroke index (SV/bsa), LVOT DP 31 ml/m^2 Aortic valve Value Reference Aortic valve peak velocity, S 1.1 m/sec Aortic valve mean velocity, S 0.91 m/sec Aortic valve VTI, S 23.0 cm Aortic mean gradient, S 3.4 mm Hg Aortic peak gradient, S 4.6 mm Hg VTI ratio, LVOT/AV 0.66 Aortic valve area, VTI 2 cm^2 Velocity ratio, peak, LVOT/AV 0.69 Aortic valve area, peak velocity 2.1 cm^2 Velocity ratio, mean, LVOT/AV 0.68 Aortic valve area, mean velocity 2.1 cm^2 Aortic valve area/bsa, mean velocity 1.4 cm^2/m^2 Aorta Value Reference Aortic root ID, ED 2.8 cm Left atrium Value Reference LA ID, A-P, ES 3.0 cm LA ID/bsa, A-P 2.0 cm/m^2 <=2.2 LA area, ES, A4C 16.6 cm^2 8.8 - 23.4 LA volume/bsa, ES, 1-p A4C 27 ml/m^2 LA/aortic root ratio 1.08 Mitral valve Value Reference Mitral E-wave peak velocity 1.23 m/sec Mitral A-wave peak velocity 1.01 m/sec Mitral deceleration time (L) 103 ms 150 - 230 Mitral pressure half-time 30 ms Mitral peak gradient, D 6.1 mm Hg Mitral E/A ratio, peak 1.22 Mitral valve area, PHT, DP 7.4 cm^2 Pulmonary veins Value Reference Pulmonary vein peak velocity, S 0.26 m/sec Pulmonary vein peak velocity, D 0.65 m/sec Pulmonary vein velocity ratio, peak, 0.4 S/D Tricuspid valve Value Reference Tricuspid regurg peak velocity 3.8 m/sec Tricuspid peak RV-RA gradient 58.7 mm Hg Right atrium Value Reference RA area, ES, A4C 9.5 cm^2 8.3 - 19.5 Legend: (L) and (H) markel values outside specified reference range. I have personally reviewed the images and have reviewed and edited the reported findings. Electronically signed by Vadim Joyce 04/21/2018 14:41
--- NOTE | 2018-04-21 14:05 | PHARADMIT ---
Addendum entered by Yelitza Santos 04/24/18 13:23: Pharmacy Note Subjective Moved to M/S, exercise oximetry today Objective BP 158/80, k+ 3.2, weight down from admission Assessment Lasix dc'd-diuresed K+ 40meq po x1 Plan anticipated discharge soon Original Note: Addendum entered by Herbie Kearney III 04/23/18 12:07: Pharmacy Note Subjective Continues to improve, Was to have stress test today,canceled, no golf manager. Objective VS-OK BP-150/67 SCr-1.95 (up) K+3.6 Mag-2.1 Assessment Heparin continues Plan May be transferred to Med/Surg Original Note: Addendum entered by Grace Barrientos 04/22/18 17:01: Pharmacy Note Subjective improving per morning report Objective VS-okay Na-135(down) K+3.3(up) SCr-1.75(down) Assessment heparin ordered for DVT prophylaxis meds for stress test ordered Plan possible stress test tomorrow Original Note: Admission Pharmacy Clinical Review CHF Code Status Full Code Current Weight 47.4 kg Renally Cleared and Narrow Therapeutic Index Meds CrCl~21 ml/min QTc Value / Action Taken QTC 477 (no meds causing elevation....sinus tachy) BP Control, Fever BP 159/82, HR>100, Afebrile Electrolytes reviewed K+ 3.2 Mag 1.7 (Mag 2gram IV x1, K-dur 40meq po x1) DVT Prophylaxis only ASA 81mg...will notify MD, is ambulating Opiate Usage / Scheduled Bowel Regimen Ordered none Plt/SCr for Heparin / Enoxaparin Plt 327 SCr 1.80 INR for Warfarin INR 1.0 H/H stable, WBC/Bands H/H 14.11/39.1 WBC 9.95 Antibiotic appropriateness Rocephin/Doxy IV x 1 dose each in ED....not continued per MD Cultures and Sensitivities Urine pending Surgical ABX d/c within 24 hr DM control / Insulin Dosing BG 127 Heart Failure (Check EF%) (ABBY's, B-Block, Diuretics) Amlodipine, Lasix, Toprol IV to PO Switch Lasix Home Meds Reviewed Home Meds Not Ordered Ibuprofen (shouldn't take w/CHF), Comments wt down 3.8kg overnight, follow w/goal of 500-1000 cc output daily per Cardiovascular Disease Specialist, low salt diet, may need BP med adjustment Troponin 0.06,0.08,0.06 New onset/diagnosis of CHF and hypertension Cardiology consult/Echo today possible transfer to /
--- NOTE | 2018-04-21 14:14 | PDOC.CMIN ---
- If Service Date Differs Date of service: 04/21/18 Time of Service: 14:14 Care Management Initial Assess REASON FOR HOSPITALIZATION:: SOB PAST MEDICAL HISTORY/PAST SURGICAL HISTORY:: HTN (hypertension). Hepatitis B (02/24/13). Bilateral salpingectomy with oophorectomy. Colonoscopy - MAC (09/27/12). EGD W/ BS (08/12/12). Hysterectomy, Laproscopic (~01/1984) PREVIOUS FUNCTIONAL STATUS/SOCIAL/FAMILY SUPPORTS:: Charlene resides with her Rodolfo in [place]. 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 Charlene is independent at baseline, drives, and manage's IADL's CURRENT FUNCTIONAL STATUS:: Currently Charlene is having a lung scan, and an Echo performed when this field underwriter attempts to meet with her. ADVANCE DIRECTIVES:: On file- Rodolfo Harmon is agent, Mary Ford is alternate Has patient been provided with information about the portal?: No Did the patient sign up for the portal?: No CODE STATUS:: Full Code INSURANCE COVERAGE / FINANCIAL ISSUES:: Medicare, BCBS CURRENT HOME/COMMUNITY SERVICES/EQUIPMENT:: Currently Charlene has no services or medical equipment in the community. PRIMARY CARE PHYSICIAN:: POTENTIAL DISCHARGE NEEDS:: F/U appointment with PATIENT/FAMILY EDUCATION NEEDS:: Review DC instructions, any limitations, and ongoing DC planning discussion. Discuss 'Ask Me Three' ANTICIPATED BARRIERS TO DISCHARGE:: None identified at this time. TRANSPORTATION:: Via private vehicle PLAN:: Charlene will return home with no anticipated services. She will F/U with PCP and plan of care as prescribed. Family to transport when ready.
--- NOTE | 2018-04-21 14:42 | INITIAL_ITS ---
- If Service Date Differs Date of service: 04/21/18 Time of Service: 14:14 Care Management Initial Assess REASON FOR HOSPITALIZATION:: SOB PAST MEDICAL HISTORY/PAST SURGICAL HISTORY:: HTN (hypertension). Hepatitis B (02/24/13). Bilateral salpingectomy with oophorectomy. Colonoscopy - MAC (09/27/12). EGD W/ BS (08/12/12). Hysterectomy, Laproscopic (~01/1984) PREVIOUS FUNCTIONAL STATUS/SOCIAL/FAMILY SUPPORTS:: Charlene resides with her Rodolfo in [place]. 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 Charlene is independent at baseline, drives, and manage's IADL's CURRENT FUNCTIONAL STATUS:: Currently Charlene is having a lung scan, and an Echo performed when this service writer attempts to meet with her. ADVANCE DIRECTIVES:: On file- Rodolfo Harmon is agent, Mary Ford is alternate Has patient been provided with information about the portal?: No Did the patient sign up for the portal?: No CODE STATUS:: Full Code INSURANCE COVERAGE / FINANCIAL ISSUES:: Medicare, BCBS CURRENT HOME/COMMUNITY SERVICES/EQUIPMENT:: Currently Charlene has no services or medical equipment in the community. PRIMARY CARE PHYSICIAN:: POTENTIAL DISCHARGE NEEDS:: F/U appointment with PATIENT/FAMILY EDUCATION NEEDS:: Review DC instructions, any limitations, and ongoing DC planning discussion. Discuss 'Ask Me Three' ANTICIPATED BARRIERS TO DISCHARGE:: None identified at this time. TRANSPORTATION:: Via private vehicle PLAN:: Charlene will return home with no anticipated services. She will F/U with PCP and plan of care as prescribed. Family to transport when ready.
--- NOTE | 2018-04-21 15:56 | DI.NM_ITS ---
SYMPTOMS/DIAGNOSIS: CHF, NEW ONSET SHORTNESS OF BREATH X 24 HOURS, ? PE VENTILATION/PERFUSION LUNG SCAN: Ventilation/perfusion lung scan was performed with intravenous infusion of 4.6 mCi of technetium 99 labelled macroaggregated albumin and inhalation of 32 mCi of technetium 99 labelled DTPA. Perfusion images are within normal limits with minimal heterogeneity. Ventilation images are markedly abnormal. There is heterogeneity of ventilation. CONCLUSION: No evidence of pulmonary embolic disease.
--- NOTE | 2018-04-21 17:33 | W.PM.PROGNOT ---
Date of Service Date of service: 04/21/18 Time of Service: 16:30 Assessment and Plan (1) Acute and chronic respiratory failure with hypoxia: Current visit: Yes Status: Acute Likely due to acute CHF in addition to pulmonary hypertension. Acute CHF could be due to hypertensive emergency - which could, in turn, be due to patient's known renal artery stenosis. Continue to monitor in ICU, diuresing, monitoring I/O's, daily weights. Despite GAEL, I am starting losartan to help bring down BP's (allergic to tj-i's, per chart). Increase beta blockers. Wean O2 as tolerated. Keep in ICU overnight. VQ scan negative for PE. Clinically, I do not see any evidence for pneumonia or COPD exacerbation at this time. (2) Acute systolic CHF (congestive heart failure): Current visit: Yes Status: Acute with bilateral pleural effusions. EF 35% -40 % per echo today. Continue diuresis with lasix. Bumex may be more effective if we are not getting significant diuresis by tomorrow - as the patient has a history of cirrhosis. Beta blockers increased. Will need ischemic workup once acute respiratory failure/hypertensive emergency are handled. (3) Hypertensive emergency: Current visit: Yes Status: Acute In light of renal artery stenosis, adding ARB will likely have highest yield. Given tachycardia, I am also increasing metoprolol to 50 mg BID. (4) Renal artery stenosis: Current visit: No Status: Chronic As above - adding ARB. Monitor Cr. (5) Creatinine elevation: Current visit: No Status: Resolved Could be cardiorenal due to poor EF - or effects of hypertension/progression of renal artery stenosis. Monitor on lasix and with addition of ARB. If significant worsening of kidney function is observed, would discuss with vascular surgery re sooner placement of stent. (6) AAA (abdominal aortic aneurysm): Current visit: No Status: Chronic F/u as outpatient (7) DVT prophylaxis: Current visit: Yes Status: Acute heparin SQ given GAEL (8) Discharge planning issues: Current visit: Yes Status: Acute Full code Subjective Interval history since last seen: Ms Harmon denies any chest pain. She feels short of breath, but better. She is requiring 5 L of O2 at the time of this exam. She denies any cough, nausea, vomiting. At home, she states she did not have any fevers - she did feel hot/sweaty at the time of feeling short of breath last night and the time before, when she was trying to lay flat. She never felt like she had a cold/respiratory illness. She states she made a roast for [place] - she is not sure how much salt was put into it because she used a rub that already had salt in it. She normally watches her salt intake. She tells me blood pressure had been an issue at home and that she has known renal artery stenosis for which she might be getting a stent as outpatient. Exam Narrative Exam Narrative: General: Elderly female, sitting up in bed, talking comfortably to me HEENT: EOMI, MMM Heart: RRR, mildly tachycardic Lungs: Crackles bilaterally, L >R GI: abdomen is soft, nontender, nondistended Extremities: no edema, clubbing, or cyanosis. B feet are warm. Objective Objective Clinical Data: Abnormal lab results 04/20/18 04/20/18 04/20/18 Range/Units 23:26 23:26 23:26 MCHC 36.1 H (32.0-36.0) g/dL Absolute Monocytes 1.02 H (0.11-0.7) k/cumm D-Dimer 3636 H (<500) ng/mlFEU Sodium 130 L (136-145) mmol/L Potassium 2.8 L* (3.5-5.1) mmol/L Chloride 93 L (98-107) mmol/L BUN 38 H (7-18) mg/dL Creatinine 1.87 H (0.55-1.02) mg/dL Glucose 193 H (70-100) mg/dL Calcium (8.5-10.1) mg/dL Magnesium (1.8-2.4) mg/dL AST 47 H (15-37) U/L Troponin I (0.00-0.06) ng/mL NT-Pro-B Natriuret Pep ( - 299) pg/mL Albumin 2.1 L (3.4-5.0) g/dL TSH (0.358-3.74) uIU/mL Urine Protein (Negative) mg/dL 04/20/18 04/21/18 04/21/18 Range/Units 23:26 00:00 06:50 MCHC (32.0-36.0) g/dL Absolute Monocytes (0.11-0.7) k/cumm D-Dimer (<500) ng/mlFEU Sodium (136-145) mmol/L Potassium (3.5-5.1) mmol/L Chloride (98-107) mmol/L BUN (7-18) mg/dL Creatinine (0.55-1.02) mg/dL Glucose (70-100) mg/dL Calcium (8.5-10.1) mg/dL Magnesium 1.7 L (1.8-2.4) mg/dL AST (15-37) U/L Troponin I 0.08 H (0.00-0.06) ng/mL NT-Pro-B Natriuret Pep 48497 H ( - 299) pg/mL Albumin (3.4-5.0) g/dL TSH (0.358-3.74) uIU/mL Urine Protein (Negative) mg/dL 04/21/18 04/21/18 Range/Units 06:50 07:05 MCHC (32.0-36.0) g/dL Absolute Monocytes (0.11-0.7) k/cumm D-Dimer (<500) ng/mlFEU Sodium (136-145) mmol/L Potassium 3.2 L (3.5-5.1) mmol/L Chloride (98-107) mmol/L BUN 35 H (7-18) mg/dL Creatinine 1.80 H (0.55-1.02) mg/dL Glucose 127 H (70-100) mg/dL Calcium 8.3 L (8.5-10.1) mg/dL Magnesium (1.8-2.4) mg/dL AST (15-37) U/L Troponin I (0.00-0.06) ng/mL NT-Pro-B Natriuret Pep ( - 299) pg/mL Albumin (3.4-5.0) g/dL TSH 4.85 H (0.358-3.74) uIU/mL Urine Protein 100 H (Negative) mg/dL Vital Signs Temperature 36.8 C 04/21/18 16:45 Temperature Source Temporal Artery Scan 04/21/18 16:45 Pulse 101 H 04/21/18 16:48 Pulse 105 H 04/21/18 17:00 Respiratory Rate 21 04/21/18 17:00 Respiratory Effort Non-Labored 04/21/18 16:45 Respiratory Depth Normal 04/21/18 16:45 Respiratory Pattern Normal 04/21/18 16:45 Blood Pressure 188/95 H 04/21/18 16:48 Blood Pressure Mean 117 04/21/18 16:48 Blood Pressure Position Supine 04/21/18 03:15 Pulse Oximetry 93 L 04/21/18 17:00 Oxygen Delivery Method Hi Flow Nasal Cannula 04/21/18 03:15 Oxygen Flow Rate 11 04/21/18 03:15 Fraction of Inspired Oxygen (FIO2) 60 04/21/18 00:06 Pain Level 0 04/21/18 16:45 Intake & Output 04/20/18 04/21/18 04/21/18 23:59 11:59 23:59 Intake Total 700 / 940 240 / 940 Output Total 1500 / 1500 Balance -800 / -560 240 / -560 Weight 51.2 kg 47.4 kg Intake: IV 400 / 400 Oral 300 / 540 240 / 540 Output: Urine 1500 / 1500 Other: Urine Color Yellow Urine Appearance Clear Comment Urine was contaminated with small,brown,heme neg stool while voiding on BSC for a UA. Spec not obtained. Stool Occult Blood Negative Stool Size Small Stool Characteristics Soft Brown Voiding Methods Bedside Commode Laboratory Results WBC 9.95 k/cumm (4.4-10.8) 04/20/18 23:26 RBC 4.53 m/cumm (4.00-5.20) 04/20/18 23:26 Hgb 14.1 g/dL (12.0-15.5) 04/20/18 23:26 Hct 39.1 % (36.0-46.0) 04/20/18 23:26 MCV 86.3 fL (80-95) 04/20/18 23:26 MCH 31.1 pg (27.0-33.0) 04/20/18 23:26 MCHC 36.1 g/dL (32.0-36.0) H 04/20/18 23:26 RDW 12.9 % (11.7-14.6) 04/20/18 23:26 Plt Count 327 x1000/uL (130-400) 04/20/18 23:26 MPV 10.9 fL (8.0-11.0) 04/20/18 23: Immature Gran % 0.2 04/20/18 23: Neutrophils % 63.5 04/20/18 23:26 Lymphocytes % 20.8 04/20/18 23:26 Monocytes % 10.3 04/20/18 23:26 Eosinophils % 4.4 04/20/18 23:26 Basophils % 0.8 04/20/18 23:26 Absolute Neutrophils 6.32 k/cumm (1.2-6.7) 04/20/18 23:26 Absolute Lymphocytes 2.07 k/cumm (1.2-3.4) 04/20/18 23: Absolute Monocytes 1.02 k/cumm (0.11-0.7) H 04/20/18 23: Absolute Eosinophils 0.44 k/cumm (0.0-0.7) 04/20/18 23: Absolute Basophils 0.08 k/cumm (0.0-0.2) 04/20/18 23: PT 10.4 sec (9.3-11.0) 04/20/18 23:26 INR 1.0 (1.0-3.5) 04/20/18 23: APTT 24.3 sec (21.0-31.4) 04/20/18 23:26 D-Dimer 3636 ng/mlFEU (<500) H 04/20/18 23:26 Sodium 137 mmol/L (136-145) 04/21/18 06:50 Potassium 3.2 mmol/L (3.5-5.1) L 04/21/18 06:50 Chloride 98 mmol/L (98-107) 04/21/18 06:50 Carbon Dioxide 29.2 mmol/L (21.0-32.0) 04/21/18 06:50 Anion Gap 9.8 mmol/L (3-11) 04/21/18 06:50 BUN 35 mg/dL (7-18) H 04/21/18 06:50 Creatinine 1.80 mg/dL (0.55-1.02) H 04/21/18 06:50 Estimated GFR/1.73 m2 27.90 (mL/min/1.73m2) 04/21/18 06:50 Glucose 127 mg/dL (70-100) H 04/21/18 06:50 Calcium 8.3 mg/dL (8.5-10.1) L 04/21/18 06:50 Magnesium 1.7 mg/dL (1.8-2.4) L 04/21/18 00:00 Total Bilirubin 0.4 mg/dL (0.2-1.0) 04/20/18 23:26 AST 47 U/L (15-37) H 04/20/18 23:26 ALT 34 U/L (12-78) 04/20/18 23:26 Alkaline Phosphatase 106 U/L (46-116) 04/20/18 23:26 Troponin I 0.06 ng/mL (0.00-0.06) 04/21/18 12:09 NT-Pro-B Natriuret Pep 46253 pg/mL (-299) H 04/20/18 23:26 Total Protein 6.7 g/dL (6.4-8.2) 04/20/18 23:26 Albumin 2.1 g/dL (3.4-5.0) L 04/20/18 23:26 TSH 4.85 uIU/mL (0.358-3.74) H 04/21/18 06:50 Free T4 0.97 ng/dL (0.76-1.46) 04/21/18 06:50 Urine Color Yellow (Yellow) 04/21/18 07:05 Urine Clarity Clear 04/21/18 07:05 Urine pH 7.0 (5-8) 04/21/18 07:05 Ur Specific [place] 1.015 (1.005-1.025) 04/21/18 07:05 Urine Protein 100 mg/dL (Negative) H 04/21/18 07:05 Urine Ketones Negative mg/dL (Negative) 04/21/18 07:05 Urine Blood Negative (Negative) 04/21/18 07:05 Urine Nitrite Negative (Negative) 04/21/18 07:05 Urine Bilirubin Negative (Negative) 04/21/18 07:05 Urine Urobilinogen 0.2 EU/dL (Up TO 0.2) 04/21/18 07:05 Ur Leukocyte Esterase Negative (Negative) 04/21/18 07:05 Urine RBC Negative (0-2) 04/21/18 07:05 Urine WBC 3-5 HPF (0-5) 04/21/18 07:05 Ur Epithelial Cells Few HPF (Negative) 04/21/18 07:05 Urine Crystals Negative HPF (Negative) 04/21/18 07:05 Urine Bacteria Moderate HPF (Negative) 04/21/18 07:05 Urine Casts Negative LPF (Negative) 04/21/18 07:05 Urine Mucus Trace (Negative) 04/21/18 07:05 Urine Other Few renal (Negative) 04/21/18 07:05 Ur Culture Indicated? Yes 04/21/18 07:05 Urine Glucose Negative mg/dL (Negative) 04/21/18 07:05 VQ scan: No evidence of pulmonary embolic disease. Echo: 1. Left ventricle: The cavity size was normal. Wall thickness was increased in a pattern of mild LVH. Systolic function was moderately reduced. The estimated ejection fraction was 35-40%. Diffuse hypokinesis. Doppler parameters are consistent with elevated mean left atrial filling pressure. 2. Mitral valve: Structurally normal valve. There was moderate regurgitation. 3. Right ventricle: The cavity size was normal. Wall thickness was normal. Systolic function was normal. 4. Pulmonary arteries: Pulmonary systolic pressure was increased, in the range of 50mm Hg to 55mm Hg. 5. Pericardium, extracardiac: A trivial pericardial effusion was identified circumferential to the heart. There was a right pleural effusion. There was a left pleural effusion.
[2018-04-21] MEDS: Losartan 25 MG TAB PO (20:22)
[2018-04-21] MEDS: Metoprolol 50 MG TAB PO (20:24)
[2018-04-21] MEDS: Pramipexole 0.25 MG TAB 0.125 MG PO (20:25)
[2018-04-21] MEDS: Heparin 5,000 UNITS/ML VIAL 5000 UNITS SC (20:27)
[2018-04-21] MEDS: Gabapentin 800 MG TAB PO (22:13)
[2018-04-21] MEDS: Calcium Carbonate *TUMS* 500 MG CHEW 1000 MG PO (22:13)
[2018-04-22] VITALS (24 sets, daily range): BP systolic 125–178; BP diastolic 61–87; PULSE 74–97; RESP 15–26; TEMP 35.7–36.6; O2SAT 87–99
[2018-04-22] MEDS: Heparin 5,000 UNITS/ML VIAL 5000 UNITS SC ×3 (04:41→20:17)
--- NOTE | 2018-04-22 06:50 | DI.RAD_ITS ---
SYMPTOM/DIAGNOSIS: F/U CHF AP UPRIGHT PORTABLE CHEST: There is bibasilar atelectasis or infiltrate demonstrated. There is a tiny right and small left pleural effusion. The heart is perhaps mildly enlarged. When compared with the previous examination of 04/20, there has been a slight increase in the overall extent of the left pleural effusion and volume loss and/or infiltration or atelectasis involving the left lower lobe. The findings are consistent with congestive failure. There has, allowing for slight differences in technique, been some partial interval clearing of the lungs. Follow up images of the chest are suggested when and if clinically warranted.
[2018-04-22 07:08] LABS: Abs Immature Grans 0.02 k/cumm (0.0-0.09); Absolute Basophil Count 0.09 k/cumm (0.0-0.2); Absolute Eosinophil Count 0.56 k/cumm (0.0-0.7); Absolute Lymphocyte Count 2.02 k/cumm (1.2-3.4); Absolute Monocyte Count 1.15 k/cumm (0.11-0.7); Absolute Neutrophil Count 6.31 k/cumm (1.2-6.7); Basophils % 0.9; Eosinophils % 5.5; HCT 35.3 % (36.0-46.0); HGB 12.2 g/dL (12.0-15.5); Immature Grans % 0.2; Lymphocytes % 19.9; Mean Corp. HGB Concentration 34.6 g/dL (32.0-36.0); Mean Corpuscular Hemoglobin 30.7 pg (27.0-33.0); Mean Corpuscular Volume 88.9 fL (80-95); Mean Platelet Volume 10.6 fL (8.0-11.0); Monocytes % 11.3; Neutrophils % 62.2; Platelet Count 372 x1000/uL (130-400); RBC 3.97 m/cumm (4.00-5.20); RBC Distribution Width 13.1 % (11.7-14.6); White Blood Cell Count 10.15 k/cumm (4.4-10.8)
[2018-04-22 07:22] LABS: BUN 28 mg/dL (7-18); CREATININE 1.75 mg/dL (0.55-1.02); Calcium 8.4 mg/dL (8.5-10.1); Chloride 98 mmol/L (98-107); Estimated GFR 28.82 (mL/min/1.73m2); Glucose 103 mg/dL (70-100); Magnesium 2.2 mg/dL (1.8-2.4); Potassium 3.3 mmol/L (3.5-5.1); Sodium 135 mmol/L (136-145)
[2018-04-22] MEDS: Furosemide 40 MG/4 ML VIAL IVP ×2 (08:08→16:52)
[2018-04-22] MEDS: Normal Saline Flush 10 ML SYR (08:08)
[2018-04-22] MEDS: Aspirin E.C. 81 MG TABEC PO (08:09)
[2018-04-22] MEDS: amLODIPine 5 MG TAB PO (08:09)
[2018-04-22] MEDS: Losartan 25 MG TAB PO ×2 (08:09→20:42)
[2018-04-22] MEDS: Atorvastatin 40 MG TAB PO (08:09)
[2018-04-22] MEDS: Metoprolol 50 MG TAB PO ×2 (08:11→20:16)
[2018-04-22] MEDS: Potassium Chloride 20 MEQ TABCR 40 MEQ PO ×2 (10:34→11:00)
--- NOTE | 2018-04-22 13:44 | CHAPLAIN ---
Charlene was sitting up reading the newspaper when I visited. She was pleasant, but interested in further conversation.
--- NOTE | 2018-04-22 14:30 | PDOC.CMPRO ---
- If Service Date Differs Date of service: 04/22/18 Time of Service: 14:30 Care Management Progress Note SO: Sitting up in her chair this morning, pleasant and open to discussion. CXR today. No change in DC plan. A: 67 y/o female admitted 04/21/18 for CHF P: Charlene will return home with no services. She will F/U with PCP and plan of care as prescribed. family to transport.
--- NOTE | 2018-04-22 16:06 | W.PM.PROGNOT ---
Date of Service Date of service: 04/22/18 Time of Service: 16:08 Assessment and Plan (1) Acute and chronic respiratory failure with hypoxia: Current visit: No Status: Acute Significantly improved. Likely due to acute CHF in addition to pulmonary hypertension and bilateral pleural effusions. Continue to wean O2 as tolerated. BP controlled perfectly on current medications. (2) Acute systolic CHF (congestive heart failure): Current visit: No Status: Acute with bilateral pleural effusions. EF 35% -40 % per echo. Acute CHF could be due to hypertensive emergency due to renal artery stenosis, but ischemic etiology needs to be ruled out. Continue diuresis with lasix. Will attempt nuclear stress test tomorrow. May transfer out of ICU. (3) Hypertensive emergency: Current visit: No Status: Resolved Resolved with addition of ARB and increase of beta se. No change in therapy today. (4) Renal artery stenosis: Current visit: No Status: Chronic As above - Cr tolerating addition of ARB. Will monitor. (5) Creatinine elevation: Current visit: No Status: Acute Could be cardiorenal due to poor EF - or effects of hypertension/progression of renal artery stenosis. Monitor on lasix/ARB (6) AAA (abdominal aortic aneurysm): Current visit: No Status: Chronic F/u as outpatient (7) DVT prophylaxis: Current visit: No Status: Acute heparin SQ given GAEL (8) Discharge planning issues: Current visit: No Status: Acute Full code Subjective Interval history since last seen: Ms Harmon is feeling better today - her oxygen has been weaned down to 0.5 L. She has had no episodes of shortness of breath/orthopnea. She denies feeling feverish/hot, any chest pain, palpitations, having a cough today, nausea, or vomiting. She feels better. Exam Narrative Exam Narrative: General: Elderly female, sitting up in bed, talking comfortably to me HEENT: EOMI, MMM Heart: RRR, no m/r/g Lungs: continues to have crackles at L base; diminished on R. GI: abdomen is soft, nontender, nondistended Extremities: no edema, clubbing, or cyanosis. B feet are warm. Objective Objective Clinical Data: Abnormal lab results 04/22/18 04/22/18 Range/Units 06:30 06:30 RBC 3.97 L (4.00-5.20) m/cumm Hct 35.3 L (36.0-46.0) % Absolute Monocytes 1.15 H (0.11-0.7) k/cumm Sodium 135 L (136-145) mmol/L Potassium 3.3 L (3.5-5.1) mmol/L BUN 28 H (7-18) mg/dL Creatinine 1.75 H (0.55-1.02) mg/dL Glucose 103 H (70-100) mg/dL Calcium 8.4 L (8.5-10.1) mg/dL Vital Signs Temperature 36.3 C L 04/22/18 12:30 Temperature Source Temporal Artery Scan 04/22/18 12:30 Pulse 80 04/22/18 08:58 Pulse 80 04/22/18 08:58 Respiratory Rate 19 04/22/18 08:58 Respiratory Effort Non-Labored 04/22/18 12:30 Respiratory Depth Normal 04/22/18 12:30 Respiratory Pattern Normal 04/22/18 12:30 Blood Pressure 136/87 04/22/18 08:58 Blood Pressure Mean 96 04/22/18 08:58 Blood Pressure Position Supine 04/22/18 12:30 Pulse Oximetry 93 L 04/22/18 12:30 Oxygen Delivery Method Nasal Cannula 04/22/18 12:30 Oxygen Flow Rate 0.5 04/22/18 12:30 Fraction of Inspired Oxygen (FIO2) 60 04/21/18 00:06 Pain Level 0 04/22/18 12:30 Intake & Output 04/21/18 04/22/18 04/22/18 23:59 11:59 23:59 Intake Total 600 / 1300 240 / 240 Output Total 1875 / 3375 375 / 375 Balance -1275 / -2075 -135 / -135 Weight 46.8 kg Intake: IV 10 / 410 Oral 590 / 890 240 / 240 Output: Urine 1875 / 3375 375 / 375 Other: Urine Color Yellow Yellow Urine Appearance Clear Cloudy Urine Odor None Comment [place] remains not placed per Pt's choice with Mds aware and have advised RNsthat as long as the Pt is producing adequate urine output, the catheter does not need to be placed.Pt has been with adequate urine output with no discomfort or distention in the bladder region. Slightly cloudy urine. Mixed with stool. Stool Occult Blood Negative Stool Size Small Small Stool Characteristics Soft Soft Brown Formed Voiding Methods Bedside Commode Bedside Commode Laboratory Results WBC 10.15 k/cumm (4.4-10.8) 04/22/18 06:30 RBC 3.97 m/cumm (4.00-5.20) L 04/22/18 06:30 Hgb 12.2 g/dL (12.0-15.5) 04/22/18 06:30 Hct 35.3 % (36.0-46.0) L 04/22/18 06:30 MCV 88.9 fL (80-95) 04/22/18 06:30 MCH 30.7 pg (27.0-33.0) 04/22/18 06:30 MCHC 34.6 g/dL (32.0-36.0) 04/22/18 06:30 RDW 13.1 % (11.7-14.6) 04/22/18 06:30 Plt Count 372 x1000/uL (130-400) 04/22/18 06:30 MPV 10.6 fL (8.0-11.0) 04/22/18 06:30 Immature Gran % 0.2 04/22/18 06:30 Neutrophils % 62.2 04/22/18 06:30 Lymphocytes % 19.9 04/22/18 06:30 Monocytes % 11.3 04/22/18 06:30 Eosinophils % 5.5 04/22/18 06:30 Basophils % 0.9 04/22/18 06:30 Absolute Neutrophils 6.31 k/cumm (1.2-6.7) 04/22/18 06:30 Absolute Lymphocytes 2.02 k/cumm (1.2-3.4) 04/22/18 06:30 Absolute Monocytes 1.15 k/cumm (0.11-0.7) H 04/22/18 06:30 Absolute Eosinophils 0.56 k/cumm (0.0-0.7) 04/22/18 06:30 Absolute Basophils 0.09 k/cumm (0.0-0.2) 04/22/18 06:30 PT 10.4 sec (9.3-11.0) 04/20/18 23:26 INR 1.0 (1.0-3.5) 04/20/18 23:26 APTT 24.3 sec (21.0-31.4) 04/20/18 23:26 D-Dimer 3636 ng/mlFEU (<500) H 04/20/18 23:26 Sodium 135 mmol/L (136-145) L 04/22/18 06:30 Potassium 3.3 mmol/L (3.5-5.1) L 04/22/18 06:30 Chloride 98 mmol/L (98-107) 04/22/18 06:30 Carbon Dioxide 30.0 mmol/L (21.0-32.0) 04/22/18 06:30 Anion Gap 7.0 mmol/L (3-11) 04/22/18 06:30 BUN 28 mg/dL (7-18) H 04/22/18 06:30 Creatinine 1.75 mg/dL (0.55-1.02) H 04/22/18 06:30 Estimated GFR/1.73 m2 28.82 (mL/min/1.73m2) 04/22/18 06:30 Glucose 103 mg/dL (70-100) H 04/22/18 06:30 Calcium 8.4 mg/dL (8.5-10.1) L 04/22/18 06:30 Magnesium 2.2 mg/dL (1.8-2.4) 04/22/18 06:30 Total Bilirubin 0.4 mg/dL (0.2-1.0) 04/20/18 23:26 AST 47 U/L (15-37) H 04/20/18 23:26 ALT 34 U/L (12-78) 04/20/18 23:26 Alkaline Phosphatase 106 U/L (46-116) 04/20/18 23:26 Troponin I 0.06 ng/mL (0.00-0.06) 04/21/18 12:09 NT-Pro-B Natriuret Pep 60217 pg/mL (-299) H 04/20/18 23:26 Total Protein 6.7 g/dL (6.4-8.2) 04/20/18 23:26 Albumin 2.1 g/dL (3.4-5.0) L 04/20/18 23:26 TSH 4.85 uIU/mL (0.358-3.74) H 04/21/18 06:50 Free T4 0.97 ng/dL (0.76-1.46) 04/21/18 06:50 Urine Color Yellow (Yellow) 04/21/18 07:05 Urine Clarity Clear 04/21/18 07:05 Urine pH 7.0 (5-8) 04/21/18 07:05 Ur Specific [place] 1.015 (1.005-1.025) 04/21/18 07:05 Urine Protein 100 mg/dL (Negative) H 04/21/18 07:05 Urine Ketones Negative mg/dL (Negative) 04/21/18 07:05 Urine Blood Negative (Negative) 04/21/18 07:05 Urine Nitrite Negative (Negative) 04/21/18 07:05 Urine Bilirubin Negative (Negative) 04/21/18 07:05 Urine Urobilinogen 0.2 EU/dL (Up TO 0.2) 04/21/18 07:05 Ur Leukocyte Esterase Negative (Negative) 04/21/18 07:05 Urine RBC Negative (0-2) 04/21/18 07:05 Urine WBC 3-5 HPF (0-5) 04/21/18 07:05 Ur Epithelial Cells Few HPF (Negative) 04/21/18 07:05 Urine Crystals Negative HPF (Negative) 04/21/18 07:05 Urine Bacteria Moderate HPF (Negative) 04/21/18 07:05 Urine Casts Negative LPF (Negative) 04/21/18 07:05 Urine Mucus Trace (Negative) 04/21/18 07:05 Urine Other Few renal (Negative) 04/21/18 07:05 Ur Culture Indicated? Yes 04/21/18 07:05 Urine Glucose Negative mg/dL (Negative) 04/21/18 07:05
[2018-04-22] MEDS: Pramipexole 0.25 MG TAB 0.125 MG PO (20:15)
[2018-04-22] MEDS: Calcium Carbonate *TUMS* 500 MG CHEW 1000 MG PO (22:12)
[2018-04-22] MEDS: Gabapentin 800 MG TAB PO (22:13)
[2018-04-23] VITALS (28 sets, daily range): BP systolic 137–174; BP diastolic 61–91; PULSE 74–100; RESP 14–40; TEMP 36.3–37.5; O2SAT 87–97
[2018-04-23] MEDS: Heparin 5,000 UNITS/ML VIAL 5000 UNITS SC ×3 (04:20→19:34)
[2018-04-23 07:41] LABS: Abs Immature Grans 0.04 k/cumm (0.0-0.09); Absolute Basophil Count 0.09 k/cumm (0.0-0.2); Absolute Eosinophil Count 0.64 k/cumm (0.0-0.7); Absolute Lymphocyte Count 2.04 k/cumm (1.2-3.4); Absolute Monocyte Count 1.06 k/cumm (0.11-0.7); Absolute Neutrophil Count 5.18 k/cumm (1.2-6.7); Eosinophils % 7.1; HCT 41.6 % (36.0-46.0); HGB 14.1 g/dL (12.0-15.5); Immature Grans % 0.4; Lymphocytes % 22.5; Mean Corp. HGB Concentration 33.9 g/dL (32.0-36.0); Mean Corpuscular Hemoglobin 30.5 pg (27.0-33.0); Mean Platelet Volume 10.5 fL (8.0-11.0); Monocytes % 11.7; Neutrophils % 57.3; Platelet Count 386 x1000/uL (130-400); RBC 4.62 m/cumm (4.00-5.20); RBC Distribution Width 13.4 % (11.7-14.6); White Blood Cell Count 9.05 k/cumm (4.4-10.8)
[2018-04-23 07:55] LABS: Anion Gap 7.8 mmol/L (3-11); BUN 26 mg/dL (7-18); CO2 30.2 mmol/L (21.0-32.0); CREATININE 1.95 mg/dL (0.55-1.02); Calcium 8.9 mg/dL (8.5-10.1); Chloride 97 mmol/L (98-107); Estimated GFR 25.44 (mL/min/1.73m2); Glucose 92 mg/dL (70-100); Magnesium 2.1 mg/dL (1.8-2.4); Potassium 3.6 mmol/L (3.5-5.1); Sodium 135 mmol/L (136-145)
[2018-04-23] MEDS: Losartan 25 MG TAB PO ×2 (09:45→19:34)
[2018-04-23] MEDS: Aspirin E.C. 81 MG TABEC PO (09:45)
[2018-04-23] MEDS: Atorvastatin 40 MG TAB PO (09:45)
[2018-04-23] MEDS: Furosemide 40 MG TAB PO ×2 (09:45→16:38)
[2018-04-23] MEDS: amLODIPine 5 MG TAB PO (09:45)
[2018-04-23] MEDS: Metoprolol 50 MG TAB PO ×2 (09:45→19:34)
--- NOTE | 2018-04-23 14:44 | PDOC.CMPRO ---
- If Service Date Differs Date of service: 04/23/18 Time of Service: 14:44 Care Management Progress Note SO: Charlene is sitting up in her bed this morning, pleasant and open to discussion. Charlene will wean from oxygen today. No change in DC plan. A: 67 y/o female admitted 04/21/18 for CHF P: Charlene will return home with no services. She will F/U with PCP and plan of care as prescribed. family to transport.
--- NOTE | 2018-04-23 16:09 | W.PM.PROGNOT ---
Date of Service Date of service: 04/23/18 Time of Service: 10:45 Assessment and Plan (1) Acute and chronic respiratory failure with hypoxia: Current visit: No Status: Resolved Resolved with diuresis. Likely due to acute CHF in addition to pulmonary hypertension and bilateral pleural effusions. (2) Acute systolic CHF (congestive heart failure): Current visit: No Status: Acute with bilateral pleural effusions, now significantly better. EF 35% -40 % per echo. Acute CHF could be due to hypertensive emergency due to renal artery stenosis, but ischemic etiology needs to be ruled out. Lasix switched to PO. Will need outpatient stress test. (3) Hypertensive emergency: Current visit: No Status: Resolved Resolved with addition of ARB and increase of beta es. Monitor Cr on losartan. (lasix switche to PO/effectively decreased today). Ok to be discharged home if Cr stable tomorrow. (4) Renal artery stenosis: Current visit: No Status: Chronic As above - F/u Cr on losartan. (5) Creatinine elevation: Current visit: No Status: Acute Slightly worse post diuresis/with addition of ARB. As above. (6) AAA (abdominal aortic aneurysm): Current visit: No Status: Chronic F/u as outpatient (7) DVT prophylaxis: Current visit: No Status: Acute heparin SQ given GAEL (8) Discharge planning issues: Current visit: No Status: Acute Full code Subjective Interval history since last seen: Feels a lot better today. Denies shortness of breath, dizziness, chest pain, nausea, vomiting. Unable to get a stress test today - no curriculum and instruction specialist in the hospital. Agrees to follow up for stress test as outpatient. Exam Narrative Exam Narrative: General: Elderly female, sitting in a chair, on room air, conversant HEENT: EOMI, MMM Heart: RRR, no m/r/g Lungs: quiet crackles at L base; otherwise, diminished breath sounds b GI: abdomen is soft, nontender, nondistended Extremities: no edema, clubbing, or cyanosis. B feet are warm. Objective Objective Clinical Data: Abnormal lab results 04/23/18 04/23/18 Range/Units 07:13 07:13 Absolute Monocytes 1.06 H (0.11-0.7) k/cumm Sodium 135 L (136-145) mmol/L Chloride 97 L (98-107) mmol/L BUN 26 H (7-18) mg/dL Creatinine 1.95 H (0.55-1.02) mg/dL Vital Signs Temperature 37.2 C 04/23/18 12:39 Temperature Source Temporal Artery Scan 04/23/18 12:39 Pulse 86 04/23/18 12:40 Pulse Rhythm Regular 04/23/18 10:03 Pulse 84 04/23/18 13:00 Respiratory Rate 16 04/23/18 13:00 Respiratory Effort 04/23/18 10:03 Respiratory Depth Normal 04/23/18 10:03 Respiratory Pattern Normal 04/23/18 10:03 Blood Pressure 147/73 H 04/23/18 12:40 Blood Pressure Mean 89 04/23/18 12:40 Blood Pressure Position Supine 04/23/18 00:05 Pulse Oximetry 95 04/23/18 12:39 Oxygen Delivery Method Room Air 04/23/18 12:39 Oxygen Flow Rate 0 04/23/18 12:39 Fraction of Inspired Oxygen (FIO2) 60 04/21/18 00:06 Pain Level 0 04/23/18 12:39 Intake & Output 04/22/18 04/23/18 04/23/18 23:59 11:59 23:59 Intake Total 430 / 670 590 / 950 360 / 950 Output Total 1265 / 1640 450 / 650 200 / 650 Balance -835 / -970 140 / 300 160 / 300 Weight 46.5 kg Intake: IV 10 Oral 420 / 660 580 / 940 360 / 940 Output: Urine 1115 / 1490 450 / 650 200 / 650 Stool 150 / 150 Other: Urine Color Pale Yellow Yellow Straw Urine Appearance Clear Urine Odor Normal Comment Mixed with small stool. Unable to dip urine. Stool, Heme neg with shreds of stool Mixed with stool. Stool Occult Blood Negative Stool Size Small Moderate Stool Characteristics Soft Soft Formed Brown Voiding Methods Bedside Commode Bedside Commode Bedside Commode Laboratory Results WBC 9.05 k/cumm (4.4-10.8) 04/23/18 07:13 RBC 4.62 m/cumm (4.00-5.20) 04/23/18 07:13 Hgb 14.1 g/dL (12.0-15.5) 04/23/18 07:13 Hct 41.6 % (36.0-46.0) 04/23/18 07:13 MCV 90.0 fL (80-95) 04/23/18 07:13 MCH 30.5 pg (27.0-33.0) 04/23/18 07:13 MCHC 33.9 g/dL (32.0-36.0) 04/23/18 07:13 RDW 13.4 % (11.7-14.6) 04/23/18 07:13 Plt Count 386 x1000/uL (130-400) 04/23/18 07:13 MPV 10.5 fL (8.0-11.0) 04/23/18 07:13 Immature Gran % 0.4 04/23/18 07:13 Neutrophils % 57.3 04/23/18 07:13 Lymphocytes % 22.5 04/23/18 07:13 Monocytes % 11.7 04/23/18 07:13 Eosinophils % 7.1 04/23/18 07:13 Basophils % 1.0 04/23/18 07:13 Absolute Neutrophils 5.18 k/cumm (1.2-6.7) 04/23/18 07:13 Absolute Lymphocytes 2.04 k/cumm (1.2-3.4) 04/23/18 07:13 Absolute Monocytes 1.06 k/cumm (0.11-0.7) H 04/23/18 07:13 Absolute Eosinophils 0.64 k/cumm (0.0-0.7) 04/23/18 07:13 Absolute Basophils 0.09 k/cumm (0.0-0.2) 04/23/18 07:13 PT 10.4 sec (9.3-11.0) 04/20/18 23:26 INR 1.0 (1.0-3.5) 04/20/18 23:26 APTT 24.3 sec (21.0-31.4) 04/20/18 23:26 D-Dimer 3636 ng/mlFEU (<500) H 04/20/18 23:26 Sodium 135 mmol/L (136-145) L 04/23/18 07:13 Potassium 3.6 mmol/L (3.5-5.1) 04/23/18 07:13 Chloride 97 mmol/L (98-107) L 04/23/18 07:13 Carbon Dioxide 30.2 mmol/L (21.0-32.0) 04/23/18 07:13 Anion Gap 7.8 mmol/L (3-11) 04/23/18 07:13 BUN 26 mg/dL (7-18) H 04/23/18 07:13 Creatinine 1.95 mg/dL (0.55-1.02) H 04/23/18 07:13 Estimated GFR/1.73 m2 25.44 (mL/min/1.73m2) 04/23/18 07:13 Glucose 92 mg/dL (70-100) 04/23/18 07:13 Calcium 8.9 mg/dL (8.5-10.1) 04/23/18 07:13 Magnesium 2.1 mg/dL (1.8-2.4) 04/23/18 07:13 Total Bilirubin 0.4 mg/dL (0.2-1.0) 04/20/18 23:26 AST 47 U/L (15-37) H 04/20/18 23:26 ALT 34 U/L (12-78) 04/20/18 23:26 Alkaline Phosphatase 106 U/L (46-116) 04/20/18 23:26 Troponin I 0.06 ng/mL (0.00-0.06) 04/21/18 12:09 NT-Pro-B Natriuret Pep 56618 pg/mL (-299) H 04/20/18 23:26 Total Protein 6.7 g/dL (6.4-8.2) 04/20/18 23:26 Albumin 2.1 g/dL (3.4-5.0) L 04/20/18 23:26 TSH 4.85 uIU/mL (0.358-3.74) H 04/21/18 06:50 Free T4 0.97 ng/dL (0.76-1.46) 04/21/18 06:50 Cortisol 18 ug/dL 04/21/18 12:09 Urine Color Yellow (Yellow) 04/21/18 07:05 Urine Clarity Clear 04/21/18 07:05 Urine pH 7.0 (5-8) 04/21/18 07:05 Ur Specific [place] 1.015 (1.005-1.025) 04/21/18 07:05 Urine Protein 100 mg/dL (Negative) H 04/21/18 07:05 Urine Ketones Negative mg/dL (Negative) 04/21/18 07:05 Urine Blood Negative (Negative) 04/21/18 07:05 Urine Nitrite Negative (Negative) 04/21/18 07:05 Urine Bilirubin Negative (Negative) 04/21/18 07:05 Urine Urobilinogen 0.2 EU/dL (Up TO 0.2) 04/21/18 07:05 Ur Leukocyte Esterase Negative (Negative) 04/21/18 07:05 Urine RBC Negative (0-2) 04/21/18 07:05 Urine WBC 3-5 HPF (0-5) 04/21/18 07:05 Ur Epithelial Cells Few HPF (Negative) 04/21/18 07:05 Urine Crystals Negative HPF (Negative) 04/21/18 07:05 Urine Bacteria Moderate HPF (Negative) 04/21/18 07:05 Urine Casts Negative LPF (Negative) 04/21/18 07:05 Urine Mucus Trace (Negative) 04/21/18 07:05 Urine Other Few renal (Negative) 04/21/18 07:05 Ur Culture Indicated? Yes 04/21/18 07:05 Urine Glucose Negative mg/dL (Negative) 04/21/18 07:05
[2018-04-23] MEDS: Pramipexole 0.25 MG TAB 0.125 MG PO (19:33)
[2018-04-23] MEDS: Gabapentin 800 MG TAB PO (22:23)
[2018-04-23] MEDS: Calcium Carbonate *TUMS* 500 MG CHEW 1000 MG PO (22:24)
[2018-04-24] VITALS (8 sets, daily range): BP systolic 131–163; BP diastolic 67–94; PULSE 72–103; RESP 14–21; TEMP 36.1–37.6; O2SAT 90–94
[2018-04-24] MEDS: Heparin 5,000 UNITS/ML VIAL 5000 UNITS SC ×3 (03:45→19:37)
[2018-04-24 07:09] LABS: HCT 38.5 % (36.0-46.0); HGB 13.1 g/dL (12.0-15.5); Mean Corpuscular Hemoglobin 30.5 pg (27.0-33.0); Mean Corpuscular Volume 89.5 fL (80-95); Mean Platelet Volume 10.5 fL (8.0-11.0); Platelet Count 408 x1000/uL (130-400); RBC Distribution Width 13.2 % (11.7-14.6); White Blood Cell Count 8.13 k/cumm (4.4-10.8)
[2018-04-24 07:18] LABS: Anion Gap 7.8 mmol/L (3-11); BUN 26 mg/dL (7-18); CO2 28.2 mmol/L (21.0-32.0); Calcium 8.9 mg/dL (8.5-10.1); Chloride 99 mmol/L (98-107); Estimated GFR 26.21 (mL/min/1.73m2); Glucose 100 mg/dL (70-100); Potassium 3.2 mmol/L (3.5-5.1); Sodium 135 mmol/L (136-145)
[2018-04-24] MEDS: Atorvastatin 40 MG TAB PO (07:46)
[2018-04-24] MEDS: amLODIPine 5 MG TAB PO (07:47)
[2018-04-24] MEDS: Metoprolol 50 MG TAB PO ×2 (07:47→19:38)
[2018-04-24] MEDS: Furosemide 40 MG TAB PO (07:47)
[2018-04-24] MEDS: Aspirin E.C. 81 MG TABEC PO (07:47)
[2018-04-24] MEDS: Losartan 25 MG TAB PO ×2 (07:47→19:38)
--- NOTE | 2018-04-24 08:35 | PDOC.CMPRO ---
- If Service Date Differs Date of service: 04/24/18 Time of Service: 08:35 Care Management Progress Note SO: Charlene is sitting in bed when CM visits this morning. She is engaged in conversation, makes good eye contact, and is talkative. Charlene reports that she is feeling well and her plan is to leave the hospital today. Her O2 sat is 93% on RA and she denies SOB or pain. A: 67 y/o female admitted 04/21/18 for CHF P: Charlene will return home with no services when medically ready per MD. Anticipate patient will follow up with her PCP and plan of care as prescribed. Charlene will transport via private vehicle with her , Nicholas. CM will continue to offer support to patient and care team regarding discharge planning and disposition.
--- NOTE | 2018-04-24 08:39 | CMPROGNOTE_ITS ---
- If Service Date Differs Date of service: 04/24/18 Time of Service: 08:35 Care Management Progress Note SO: Charlene is sitting in bed when CM visits this morning. She is engaged in conversation, makes good eye contact, and is talkative. Charlene reports that she is feeling well and her plan is to leave the hospital today. Her O2 sat is 93% on RA and she denies SOB or pain. A: 67 y/o female admitted 04/21/18 for CHF P: Charlene will return home with no services when medically ready per MD. Anticipa te patient will follow up with her PCP and plan of care as prescribed. Charlene will transport via private vehicle with her , Nicholas. CM will continue to offer support to patient and care team regarding discharge planning and disposition.
[2018-04-24] MEDS: Potassium Chloride 20 MEQ TABCR 40 MEQ PO (08:50)
--- NOTE | 2018-04-24 15:55 | W.PM.PROGNOT ---
Date of Service Date of service: 04/24/18 Time of Service: 16:33 Assessment and Plan (1) Acute and chronic respiratory failure with hypoxia: In setting of hypertensive emergency. Appears resolved. (2) Acute systolic CHF (congestive heart failure): With bilateral pleural effusions, now significantly better. LVEF of 35-40% per echocardiogram. Patient's acute CHF may be in the setting of hypertensive emergency, but patient also reports dietary indiscretion and a decrease in Lasix dose prior to her admission. Currently appears euvolemic - continue beta-se therapy, and introduced ARB given history of renal artery stenosis. Continue oral Lasix. Aim for improved blood pressure control. Minimal elevation in troponin in the setting of increased demand and poor clearance with worsening renal function, likely demand ischemia, however patient may benefit from outpatient stress testing. (3) Hypertensive emergency: Appears resolved, with vastly improved blood pressures. Continue ARB, beta-se, and calcium channel se therapy. Continue to adjust dosing for optimal blood pressure control. (4) Renal artery stenosis: ARB initiated. Monitor creatinine. Apparently followed at [facility] by vascular. (5) Creatinine elevation: Elevated creatinine, appears to be at baseline. Patient has a creatinine as high as 1.8 in December of this year, with current values of 1.7-1.9. Likely etiology may be hypertensive +/- potential cardiorenal syndrome inpatient with a diagnosis of renal artery stenosis. Creatinine appears stable and unchanged despite introduction of losartan. Monitor creatinine again tomorrow morning to ensure stability. (6) AAA (abdominal aortic aneurysm): Noted, under surveillance. Patient is on daily aspirin and high potency statin therapy, as well as beta-es. Low-dose ARB was introduced recently as well. (7) DVT prophylaxis: SC heparin.
--- NOTE | 2018-04-24 16:03 | PGE_ITS ---
Date of Service Date of service: 04/24/18 Time of Service: 16:33 Assessment and Plan (1) Acute and chronic respiratory failure with hypoxia: In setting of hypertensive emergency. Appears resolved. (2) Acute systolic CHF (congestive heart failure): With bilateral pleural effusions, now significantly better. LVEF of 35- 40% per echocardiogram. Patient's acute CHF may be in the setting of hypertensive emergency, but patient also reports dietary indiscretion and a decrease in Lasix dose prior to her admission. Currently appears euvolemic - continue beta-se therapy, and introduced ARB given history of renal artery stenosis. Continue oral Lasix. Aim for improved blood pressure control. Minimal elevation in troponin in the setting of increased demand and poor clearance with worsening renal function, likely demand ischemia, however patient may benefit from outpatient stress testing. (3) Hypertensive emergency: Appears resolved, with vastly improved blood pressures. Continue ARB, beta-se, and calcium channel se therapy. Continue to adjust dosing for optimal blood pressure control. (4) Renal artery stenosis: ARB initiated. Monitor creatinine. Apparently followed at [facility] by vascular. (5) Creatinine elevation: Elevated creatinine, appears to be at baseline. Patient has a creatinine as high as 1.8 in December of this year, with current values of 1.7-1.9. Likely etiology may be hypertensive +/- potential cardiorenal syndrome inpatient with a diagnosis of renal artery stenosis. Creatinine appears stable and unchanged despite introduction of losartan. Monitor creatinine again tomorrow morning to ensure stability. (6) AAA (abdominal aortic aneurysm): Noted, under surveillance. Patient is on daily aspirin and high potency statin therapy, as well as beta-se. Low-dose ARB was introduced recently as well. (7) DVT prophylaxis: SC heparin.
[2018-04-24] MEDS: Pramipexole 0.25 MG TAB 0.125 MG PO (19:37)
[2018-04-24] MEDS: Calcium Carbonate *TUMS* 500 MG CHEW 1000 MG PO (21:28)
[2018-04-24] MEDS: Gabapentin 800 MG TAB PO (21:28)
[2018-04-25 03:50] VITALS: BP 156/75; PULSE 83; RESP 18; TEMP 37.2; O2SAT 94
[2018-04-25] MEDS: Heparin 5,000 UNITS/ML VIAL 5000 UNITS SC ×2 (03:55→12:42)
[2018-04-25 07:35] VITALS: BP 155/80; PULSE 82; RESP 14; TEMP 37.2; O2SAT 93
[2018-04-25 07:41] LABS: Anion Gap 8.7 mmol/L (3-11); BUN 22 mg/dL (7-18); CO2 28.3 mmol/L (21.0-32.0); CREATININE 2.05 mg/dL (0.55-1.02); Calcium 9.1 mg/dL (8.5-10.1); Chloride 98 mmol/L (98-107); Estimated GFR 24.01 (mL/min/1.73m2); Glucose 95 mg/dL (70-100); Potassium 3.5 mmol/L (3.5-5.1); Sodium 135 mmol/L (136-145)
[2018-04-25] MEDS: Metoprolol 50 MG TAB PO (07:45)
[2018-04-25] MEDS: Atorvastatin 40 MG TAB PO (07:45)
[2018-04-25] MEDS: amLODIPine 5 MG TAB PO ×2 (07:45→10:06)
[2018-04-25] MEDS: Aspirin E.C. 81 MG TABEC PO (07:45)
[2018-04-25] MEDS: Losartan 25 MG TAB PO (07:45)
[2018-04-25] MEDS: Furosemide 40 MG TAB PO (07:46)
[2018-04-25 07:50] VITALS: O2SAT 95
[2018-04-25] MEDS: Potassium Chloride 20 MEQ TABCR 40 MEQ PO (10:05)
[2018-04-25 13:14] VITALS: BP 133/67; PULSE 82; RESP 14; TEMP 37.4; O2SAT 93
--- NOTE | 2018-04-25 13:38 | PDOC.CMDIS ---
- If Service Date Differs Date of service: 04/25/18 Time of Service: 13:38 LACE Index Scoring Tool - Questions: Length of Stay (in days): 4 - 6 Acuity (Admit via E.D.?): Yes Comorbidities: Congestive Heart Failure E.D. Visits: 1 - Answers: Total Score: 10 Risk of Readmission: High Risk Care Management Discharge Reason for Hospitalization: SOB Discharge Plan: Charlene will discharge home when medically ready per MD. Anticipate patient will discharge with no services and follow up with her PCP. Charlene will need f/u lab work within a few days and is agreeable to such. Charlene will transport with her , Rodolfo. Patient/Family Education Needs: Discharge education, any limitations, and follow up plan of care. Ask Me Three discussion.
--- NOTE | 2018-04-25 14:57 | W.PM.DS.N ---
Date of service: 04/25/18 Time of Service: 14:59 DS: Diagnosis Discharge Diagnosis (1) Acute systolic CHF (congestive heart failure): Status: Acute (2) Hypertensive emergency: Status: Resolved (3) Renal artery stenosis: Status: Chronic (4) Creatinine elevation: Status: Acute Discharge Plan Disposition Condition: Stable Discharge Details Reason For Visit: CHF Admit Date/Time: 04/21/18 02:12 Admit Provider: Regan Sharpe Attending Provider: Regan Sharpe Primary Care Provider: Sanjuanita Lee Hospital Course Hospital Course: CC: SOB HPI: 67-year-old woman with a prior history of CHF and Renal Artery Stenosis, admitted from [facility] Emergency Department on 04/21 with a diagnosis of Hypertensive Emergency with Acute CHF Exacerbation. Mrs. Harmon has a history of hypertension, chronic renal insufficiency and peripheral edema of unspecified etiology. She follows with Vascular Surgery at [facility] for a diagnosis of YING, for which she is under surveillance, and has a history of systolic CHF with an EF of 35%. Other diagnosis includes AAA, Osteopenia, and dyslipidemia. She initially presented with several days of orthopnea manifesting with shortness of breath with recumbency associated with a dry cough. She was recently started on low dose oral lasix as an outpatient, with this dose then decreased a few days prior to her admission. She also had been significantly hypertensive at home by her blood pressure journal. She was initially managed with BiPAP, diuresis, and high level of supplemental oxygen, but has since vastly improved. With med changes she is now on room air and ambulating quite freely and without any oxygen needs. She has also diuresed well. Her blood pressure is vastly improved at time of discharge. Hospital Course: (1) Acute respiratory failure with hypoxia: In setting of hypertensive emergency in patient with systolic CHF. Resolved. (2) Acute systolic CHF (congestive heart failure): With bilateral pleural effusions, now significantly improved. LVEF of 35-40% per echocardiogram. Patient's acute CHF may be in the setting of hypertensive emergency, but patient also reports dietary indiscretion and a decrease in Lasix dose prior to her admission. Currently appears euvolemic - continue beta-se therapy, and introduced ARB given history of renal artery stenosis. Continue oral Lasix. Aim for improved blood pressure control. Minimal elevation in troponin in the setting of increased demand and poor clearance with worsening renal function, likely demand ischemia, however patient may benefit from outpatient stress testing in the future. (3) Hypertensive emergency: Appears resolved, with vastly improved blood pressures. Continue ARB, beta-se, and calcium channel se therapy, now maxed. Blood pressure prior to discharge is vastly improved and in the 130's range systolic. Continue to adjust dosing for optimal blood pressure control as outpatient. (4) Renal artery stenosis: ARB and Lasix initiated. Monitor creatinine - Mrs. Harmon has an expected and mild increase in her creatinine, from 1.8 to 2 with addition of Losartan and active diuresis. Patient's creatinine needs to be carefully monitored to ensure that a large decline in GFR does not occur - however, current minmal elevation in creatinine is expected, and ABBY-I/ARB therapy is indicated given patient's diagnosis of YING, as is lasix. Will ask patient to continue to monitor bp carefully at home. Followed at [facility] by vascular. (5) Creatinine elevation: Elevated creatinine, appears to be at baseline. Patient has a creatinine as high as 1.8 in December of this year, with current values of 1.7-1.9. Likely etiology may be hypertensive +/- potential cardiorenal syndrome in patient with a diagnosis of renal artery stenosis. Plan as above. Recheck BMP in 2-3 days. (6) AAA (abdominal aortic aneurysm): Noted, under surveillance. Patient is on daily aspirin and high potency statin therapy, as well as beta-se. Low-dose ARB was introduced recently as well. Home Meds and New Rx's Prescriptions: New furosemide 40 mg Tablet 20 mg PO DAILY Qty: 30 RF: 0 losartan 25 mg Tablet 25 mg PO DAILY Qty: 30 RF: 0 amlodipine 10 mg Tablet 10 mg PO DAILY Qty: 30 RF: 0 Continued atorvastatin 40 mg tablet 40 mg PO DAILY Qty: 90 RF: 3 pramipexole [Mirapex] 0.125 mg tablet 0.125 mg PO QPM Qty: 30 RF: 0 aspirin [Aspir-81] 81 MG tablet,delayed release (DR/EC) 81 mg PO DAILY RF: 0 cholecalciferol (vitamin D3) [Vitamin D3] 1,000 UNIT capsule 1,000 unit PO DAILY RF: 0 calcium carbonate [Tums] 200 MG tablet,chewable 400 mg PO HS RF: 0 gabapentin 800 MG tablet 800 mg PO HS Qty: 90 RF: 3 Relax and Sleep 1 EACH tablet 1 ea PO HS RF: 0 metoprolol succinate 25 mg tablet extended release 24 hr 50 mg PO DAILY RF: 0 Discontinued ibuprofen [Advil Liqui-Gel] 200 MG capsule 200 mg PO DAILY PRNRF: 0 potassium gluconate 500 MG tablet 500 mg PO DAILY RF: 0 amlodipine 10 mg tablet 5 mg PO DAILY RF: 0 furosemide 20 mg tablet 10 mg PO DAILY PRN (Reason: edema) RF: 0 Exam Narrative Exam Narrative: General: Patient appears comfortable, AAOX3, NAD Neck: Supple CV: Regular, nontachycardic, S1S2, No rubs, murmurs, or gallops. Pulmonary: Minimal bibasilar crackles, otherwise clear to auscultation. Abdomen: + Bowel Sounds, soft, nontender, nondistended Vascular: No lower extremity edema Psych: Normal mood and affect. DS: Data Vitals/I&O Vitals and I&O: Vital Signs Temperature 37.4 C 04/25/18 13:14 Temperature Source Tympanic 04/25/18 13:14 Pulse 82 04/25/18 13:14 Pulse Rhythm Regular 04/25/18 07:35 Pulse 90 04/23/18 19:06 Respiratory Rate 14 04/25/18 13:14 Respiratory Effort 04/25/18 07:35 Respiratory Depth Normal 04/25/18 07:35 Respiratory Pattern Normal 04/25/18 07:35 Blood Pressure 133/67 04/25/18 13:14 Blood Pressure Mean 106 04/23/18 19:06 Blood Pressure Position Supine 04/23/18 00:05 Pulse Oximetry 93 L 04/25/18 13:14 Oxygen Delivery Method Room Air 04/25/18 13:14 Oxygen Flow Rate 0 04/25/18 13:14 Fraction of Inspired Oxygen (FIO2) 60 04/21/18 00:06 Pain Level 0 04/25/18 13:14 Comment 04/25/18 03:50 Intake & Output 04/24/18 04/25/18 04/25/18 23:59 11:59 23:59 Intake Total 1080 / 1200 1240 / 1240 Balance 1080 / 1200 1240 / 1240 Weight 46.6 kg Intake: Oral 1080 / 1200 1240 / 1240 Other: Comment pt voiding independently in the toilet pt voiding independently in the toilet Stool Size Small Stool Characteristics Liquid Voiding Methods Toilet Toilet Completed studies during hospitalization [Text1]: CT chest/abd/pel wo 04/20/2018 SYMPTOMS/DIAGNOSIS: HYPOXIC, RIGHT CRACKLES, H/O AAA, RENAL FAILURE CHEST, ABDOMINAL AND PELVIC CT: CT examination of the chest, abdomen and pelvis was performed without contrast administration. Note is made of cardiomegaly with left ventricular predominance. There are prominent bilateral septal opacities throughout both lungs and ground-glass opacities are seen, particularly dependently. There are moderate-sized bilateral pleural effusions. There is prominence of veins seen in superior mediastinum, which is a nonspecific finding. The findings are consistent with CHF. Venous dilatation may be related to CHF. Venous dilatation also appears to be present in the mesentery; due to the noncontrast study, there is uncertainty regarding dilated venous structures versus retroperitoneal adenopathy noted as well. Thoracic aorta is of normal diameter. Abdominal aorta is ectatic throughout with diameter of about 3.5 cm. Localized aneurysmal dilatation noted in the distal aorta measuring up to 4.2 cm in diameter, exact measurement is difficult due to the irregularity of the aortic wall. Exact comparison with the previous ultrasound of December 2017 is difficult, but maximal diameter of aorta is about 3.6 cm as measured on that examination. No significant iliac aneurysm seen. No other focal vascular abnormality seen. No gross mediastinal, hilar, axillary or supraclavicular adenopathy seen. Apart from possible retroperitoneal adenopathy, no additional adenopathy identified in the abdomen or pelvis. The liver and spleen are unremarkable by noncontrast criteria, as is the pancreas. Note is made of cholelithiasis without biliary dilatation. Appendix appears normal. No evidence of diverticulitis or bowel obstruction. Adrenals and kidneys are unremarkable in appearance. No evidence of urinary tract calcification or obstruction. Urinary bladder grossly unremarkable by noncontrast criteria. No significant abdominal wall hernia seen. CONCLUSION: 1. Findings consistent with CHF with pulmonary edema and bilateral pleural effusions. 2. Venous prominence noted in mediastinum and mesentery may be related to CHF. 3. Indeterminate findings, vascular prominence versus adenopathy in the retroperitoneum. 4. Ectatic abdominal aorta measuring roughly 3.5 cm in diameter with focal bilobed aneurysm of the distal abdominal aorta measuring up to 4.2 cm in diameter. No gross evidence of leaking aneurysm at this time. XR portable chest AP 04/20/2018 SYMPTOMS/DIAGNOSIS: SHORTNESS OF BREATH, RIGHT CRACKLES PORTABLE AP CHEST: The heart is enlarged. There are bilateral diffuse intrapulmonary infiltrates and bilateral pleural effusions. The findings are consistent with CHF. Please see accompanying CT report. Exam(s) a US:US echocardiogram Date of study: 04/21/2018 Transthoracic Echocardiography M-mode, complete 2D, complete spectral Doppler, and color Doppler *STUDY CONCLUSIONS* Summary: 1. Left ventricle: The cavity size was normal. Wall thickness was increased in a pattern of mild LVH. Systolic function was moderately reduced. The estimated ejection fraction was 35-40%. Diffuse hypokinesis. Doppler parameters are consistent with elevated mean left atrial filling pressure. 2. Mitral valve: Structurally normal valve. There was moderate regurgitation. 3. Right ventricle: The cavity size was normal. Wall thickness was normal. Systolic function was normal. 4. Pulmonary arteries: Pulmonary systolic pressure was increased, in the range of 50mm Hg to 55mm Hg. 5. Pericardium, extracardiac: A trivial pericardial effusion was identified circumferential to the heart. There was a right pleural effusion. There was a left pleural effusion. NM lung scan vent & perf grp SYMPTOMS/DIAGNOSIS: CHF, NEW ONSET SHORTNESS OF BREATH X 24 HOURS, ? PE VENTILATION/PERFUSION LUNG SCAN: Ventilation/perfusion lung scan was performed with intravenous infusion of 4.6 mCi of technetium 99 labelled macroaggregated albumin and inhalation of 32 mCi of technetium 99 labelled DTPA. Perfusion images are within normal limits with minimal heterogeneity. Ventilation images are markedly abnormal. There is heterogeneity of ventilation. CONCLUSION: No evidence of pulmonary embolic disease. XR portable chest AP 04/22/2018 SYMPTOM/DIAGNOSIS: F/U CHF AP UPRIGHT PORTABLE CHEST: There is bibasilar atelectasis or infiltrate demonstrated. There is a tiny right and small left pleural effusion. The heart is perhaps mildly enlarged. When compared with the previous examination of 04/20, there has been a slight increase in the overall extent of the left pleural effusion and volume loss and/or infiltration or atelectasis involving the left lower lobe. The findings are consistent with congestive failure. There has, allowing for slight differences in technique, been some partial interval clearing of the lungs. Follow up images of the chest are suggested when and if clinically warranted. Labs on day of discharge: Labs from last 24 hours 04/25/18 06:35 Sodium 135 L Potassium 3.5 Chloride 98 Carbon Dioxide 28.3 Anion Gap 8.7 BUN 22 H Creatinine 2.05 H Estimated GFR/1.73 m2 24.01 Glucose 95 Calcium 9.1 Magnesium 2.0 PFSH Medical History HTN (hypertension) Hepatitis B (02/24/13) Surgical History Bilateral salpingectomy with oophorectomy Colonoscopy - MAC (09/27/12) EGD W/ BS (08/12/12) Hysterectomy, Laproscopic (~01/1984) Family History Grandmother Essential hypertension Social History foster care: No household members: spouse housing: house lives independently: Yes number of children: 2 current occupational status: employed 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
--- NOTE | 2018-04-25 15:17 | DSE_ITS ---
Date of service: 04/25/18 Time of Service: 14:59 DS: Diagnosis Discharge Diagnosis (1) Acute systolic CHF (congestive heart failure): Status: Acute (2) Hypertensive emergency: Status: Resolved (3) Renal artery stenosis: Status: Chronic (4) Creatinine elevation: Status: Acute Discharge Plan Disposition Condition: Stable Discharge Details Reason For Visit: CHF Admit Date/Time: 04/21/18 02:12 Admit Provider: Regan Sharpe Attending Provider: Regan Sharpe Primary Care Provider: Sanjuanita Lee Hospital Course Hospital Course: CC: SOB HPI: 67-year-old woman with a prior history of CHF and Renal Artery Stenosis, admitted from [facility] Emergency Department on 04/21 with a diagnosis of Hypertensive Emergency with Acute CHF Exacerbation. Mrs. Harmon has a history of hypertension, chronic renal insufficiency and pe ripheral edema of unspecified etiology. She follows with Vascular Surgery at [facility] for a diagnosis of YING, for which she is under surveillance, and has a history of systolic CHF with an EF of 35%. Other diagnosis includes AAA, Osteopenia, and dyslipidemia. She initially presented with several days of orthopnea manifesting with shortness of breath with recumbency associated with a dry cough. She was recently started on low dose oral lasix as an outpatient, with this dose then decreased a few days prior to her admission. She also had been significantly hypertensive at home by her blood pressure journal. She was initially managed with BiPAP, diuresis, and high level of supplemental oxygen, but has since vastly improved. With med changes she is now on room air and ambulating quite freely and without any oxygen needs. She has also diuresed well. Her blood pressure is vastly improved at time of discharge. Hospital Course: (1) Acute respiratory failure with hypoxia: In setting of hypertensive emergency in patient with systolic CHF. Resolved. (2) Acute systolic CHF (congestive heart failure): With bilateral pleural effusions, now significantly improved. LVEF of 35- 40% per echocardiogram. Patient's acute CHF may be in the setting of hypertensive emergency, but patient also reports dietary indiscretion and a decrease in Lasix dose prior to her admission. Currently appears euvolemic - continue beta-se therapy, and introduced ARB given history of renal artery stenosis. Continue oral Lasix. Aim for improved blood pressure control. Minimal elevation in troponin in the setting of increased demand and poor clearance with worsening renal function, likely demand ischemia, however patient may benefit from outpatient stress testing in the future. (3) Hypertensive emergency: Appears resolved, with vastly improved blood pressures. Continue ARB, beta-se, and calcium channel se therapy, now maxed. Blood pressure prior to discharge is vastly improved and in the 130's range systolic. Continue to adjust dosing for optimal blood pressure control as outpatient. (4) Renal artery stenosis: ARB and Lasix initiated. Monitor creatinine - Mrs. Harmon has an expected and mild increase in her creatinine, from 1.8 to 2 with addition of Losartan and active diuresis. Patient's creatinine needs to be carefully monitored to ensure that a large decline in GFR does not occur - however, current minmal elevation in creatinine is expected, and ABBY-I/ARB therapy is indicated given patient's diagnosis of YING, as is lasix. Will ask patient to continue to monitor bp carefully at home. Followed at [facility] by vascular. (5) Creatinine elevation: Elevated creatinine, appears to be at baseline. Patient has a creatinine as high as 1.8 in December of this year, with current values of 1.7-1.9. Likely etiology may be hypertensive +/- potential cardiorenal syndrome in patient with a diagnosis of renal artery stenosis. Plan as above. Recheck BMP in 2-3 days. (6) AAA (abdominal aortic aneurysm): Noted, under surveillance. Patient is on daily aspirin and high potency statin therapy, as well as beta-se. Low-dose ARB was introduced recently as well. Home Meds and New Rx's Prescriptions: New furosemide 40 mg Tablet 20 mg PO DAILY Qty: 30 RF: 0 losartan 25 mg Tablet 25 mg PO DAILY Qty: 30 RF: 0 amlodipine 10 mg Tablet 10 mg PO DAILY Qty: 30 RF: 0 Continued atorvastatin 40 mg tablet 40 mg PO DAILY Qty: 90 RF: 3 pramipexole [Mirapex] 0.125 mg tablet 0.125 mg PO QPM Qty: 30 RF: 0 aspirin [Aspir-81] 81 MG tablet,delayed release (DR/EC) 81 mg PO DAILY RF: 0 cholecalciferol (vitamin D3) [Vitamin D3] 1,000 UNIT capsule 1,000 unit PO DAILY RF: 0 calcium carbonate [Tums] 200 MG tablet,chewable 400 mg PO HS RF: 0 gabapentin 800 MG tablet 800 mg PO HS Qty: 90 RF: 3 Relax and Sleep 1 EACH tablet 1 ea PO HS RF: 0 metoprolol succinate 25 mg tablet extended release 24 hr 50 mg PO DAILY RF: 0 Discontinued ibuprofen [Advil Liqui-Gel] 200 MG capsule 200 mg PO DAILY PRNRF: 0 potassium gluconate 500 MG tablet 500 mg PO DAILY RF: 0 amlodipine 10 mg tablet 5 mg PO DAILY RF: 0 furosemide 20 mg tablet 10 mg PO DAILY PRN (Reason: edema) RF: 0 Exam Narrative Exam Narrative: General: Patient appears comfortable, AAOX3, NAD Neck: Supple CV: Regular, nontachycardic, S1S2, No rubs, murmurs, or gallops. Pulmonary: Minimal bibasilar crackles, otherwise clear to auscultation. Abdomen: + Bowel Sounds, soft, nontender, nondistended Vascular: No lower extremity edema Psych: Normal mood and affect. DS: Data Vitals/I&O Vitals and I&O: Vital Signs Temperature 37.4 C 04/25/18 13:14 Temperature Source Tympanic 04/25/18 13:14 Pulse 82 04/25/18 13:14 Pulse Rhythm Regular 04/25/18 07:35 Pulse 90 04/23/18 19:06 Respiratory Rate 14 04/25/18 13:14 Respiratory Effort 04/25/18 07:35 Respiratory Depth Normal 04/25/18 07:35 Respiratory Pattern Normal 04/25/18 07:35 Blood Pressure 133/67 04/25/18 13:14 Blood Pressure Mean 106 04/23/18 19:06 Blood Pressure Position Supine 04/23/18 00:05 Pulse Oximetry 93 L 04/25/18 13:14 Oxygen Delivery Method Room Air 04/25/18 13:14 Oxygen Flow Rate 0 04/25/18 13:14 Fraction of Inspired Oxygen (FIO2) 60 04/21/18 00:06 Pain Level 0 04/25/18 13:14 Comment 04/25/18 03:50 Intake & Output 04/24/18 04/25/18 04/25/18 23:59 11:59 23:59 Intake Total 1080 / 1200 1240 / 1240 Balance 1080 / 1200 1240 / 1240 Weight 46.6 kg Intake: Oral 1080 / 1200 1240 / 1240 Other: Comment pt voiding independently in the toilet pt voiding independently in the toilet Stool Size Small Stool Characteristics Liquid Voiding Methods Toilet Toilet Completed studies during hospitalization [Text1]: CT chest/abd/pel wo 04/20/2018 SYMPTOMS/DIAGNOSIS: HYPOXIC, RIGHT CRACKLES, H/O AAA, RENAL FAILURE CHEST, ABDOMINAL AND PELVIC CT: CT examination of the chest, abdomen and pelvis was performed without contrast a dministration. Note is made of cardiomegaly with left ventricular predominance. There are prominent bilateral septal opacities throughout both lungs and ground-glass opacities are seen, particularly dependently. There are moderate- sized bilateral pleural effusions. There is prominence of veins seen in superior mediastinum, which is a nonspecific finding. The findings are consistent with CHF. Venous dilatation may be related to CHF. Venous dilatation also appears to be present in the mesentery; due to the noncontrast study, there is uncertainty regarding dilated venous structures versus retroperitoneal adenopathy noted as well. Thoracic aorta is of normal diameter. Abdominal aorta is ectatic throughout with diameter of about 3.5 cm. Localized aneurysmal dilatation noted in the d istal aorta measuring up to 4.2 cm in diameter, exact measurement is difficult due to the irregularity of the aortic wall. Exact comparison with the previous ultrasound of December 2017 is difficult, but maximal diameter of aorta is about 3.6 cm as measured on that examination. No significant iliac aneurysm seen. No other focal vascular abnormality seen. No gross mediastinal, hilar, axillary or supraclavicular adenopathy seen. Apart from possible retroperitoneal adenopathy, no additional adenopathy identified in the abdomen or pelvis. The liver and spleen are unremarkable by noncontrast criteria, as is the pancreas. Note is made of cholelithiasis without biliary dilatation. Appendix appears normal. No evidence of diverticulitis or bowel obstruction. Adrenals and kidneys are unremarkable in appearance. No evidence of urinary tract calcification or obstruction. Urinary bladder grossly unremarkable by noncontrast criteria. No significant abdominal wall hernia seen. CONCLUSION: 1. Findings consistent with CHF with pulmonary edema and bilateral pleural effusions. 2. Venous prominence noted in mediastinum and mesentery may be related to CHF. 3. Indeterminate findings, vascular prominence versus adenopathy in the retroperitoneum. 4. Ectatic abdominal aorta measuring roughly 3.5 cm in diameter with focal bilobed aneurysm of the distal abdominal aorta measuring up to 4.2 cm in diameter. No gross evidence of leaking aneurysm at this time. XR portable chest AP 04/20/2018 SYMPTOMS/DIAGNOSIS: SHORTNESS OF BREATH, RIGHT CRACKLES PORTABLE AP CHEST: The heart is enlarged. There are bilateral diffuse intrapulmonary infiltrates and bilateral pleural effusions. The findings are consistent with CHF. Please see accompanying CT report. Exam(s) a US:US echocardiogram Date of study: 04/21/2018 Transthoracic Echocardiography M-mode, complete 2D, complete spectral Doppler, and color Doppler *STUDY CONCLUSIONS* Summary: 1. Left ventricle: The cavity size was normal. Wall thickness was increased in a pattern of mild LVH. Systolic function was moderately reduced. The estimated ejection fraction was 35-40%. Diffuse hypokinesis. Doppler parameters are consistent with elevated mean left atrial filling pressure. 2. Mitral valve: Structurally normal valve. There was moderate regurgitation. 3. Right ventricle: The cavity size was normal. Wall thickness was normal. Systolic function was normal. 4. Pulmonary arteries: Pulmonary systolic pressure was increased, in the range of 50mm Hg to 55mm Hg. 5. Pericardium, extracardiac: A trivial pericardial effusion was identified circumferential to the heart. There was a right pleural effusion. There was a left pleural effusion. NM lung scan vent & perf grp SYMPTOMS/DIAGNOSIS: CHF, NEW ONSET SHORTNESS OF BREATH X 24 HOURS, ? PE VENTILATION/PERFUSION LUNG SCAN: Ventilation/perfusion lung scan was performed with intravenous infusion of 4.6 mCi of technetium 99 labelled macroaggregated albumin and inhalation of 32 mCi of technetium 99 labelled DTPA. Perfusion images are within normal limits with minimal heterogeneity. Ventilation images are markedly abnormal. There is heterogeneity of ventilation. CONCLUSION: No evidence of pulmonary embolic disease. XR portable chest AP 04/22/2018 SYMPTOM/DIAGNOSIS: F/U CHF AP UPRIGHT PORTABLE CHEST: There is bibasilar atelectasis or infiltrate demonstrated. There is a tiny right and small left pleural effusion. The heart is perhaps mildly enlarged. When compared with the previous examination of 04/20, there has been a slight increase in the overall extent of the left pleural effusion and volume loss and/or infiltration or atelectasis involving the left lower lobe. The findings are consistent with congestive failure. There has, allowing for slight differences in technique, been some partial interval clearing of the lungs. Follow up images of the chest are suggested when and if clinically warranted. Labs on day of discharge: Labs from last 24 hours 04/25/18 06:35 Sodium 135 L Potassium 3.5 Chloride 98 Carbon Dioxide 28.3 Anion Gap 8.7 BUN 22 H Creatinine 2.05 H Estimated GFR/1.73 m2 24.01 Glucose 95 Calcium 9.1 Magnesium 2.0 PFSH Medical History HTN (hypertension) Hepatitis B (02/24/13) Surgical History Bilateral salpingectomy with oophorectomy Colonoscopy - MAC (09/27/12) EGD W/ BS (08/12/12) Hysterectomy, Laproscopic (~01/1984) Family History Grandmother Essential hypertension Social History foster care: No household members: spouse housing: house lives independently: Yes number of children: 2 current occupational status: employed 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
== END 2018-04-25 16:29 | disposition home or self-care (01) | DRG 291 ==
LOC: ER 04-21 01:34 → ICU 04-21 03:18 → MS 04-24 00:07
PROVIDERS: Internal Medicine; Admitting Provider General Practice; Emergency Provider Student in an Organized Health Care Education/Training Program; PCP Internal Medicine; Visit Provider General Practice
DX: I13.0 Hypertensive heart and chronic kidney disease with heart failure and stage 1 through stage 4 chronic kidney disease, or unspecified chronic kidney disease (principal); I50.21 Acute systolic (congestive) heart failure; J96.21 Acute and chronic respiratory failure with hypoxia; I16.1 Hypertensive emergency; I24.8 Other forms of acute ischemic heart disease; N18.9 Chronic kidney disease, unspecified; Z91.11 Patient's noncompliance with dietary regimen; I70.1 Atherosclerosis of renal artery; R94.4 Abnormal results of kidney function studies; E78.5 Hyperlipidemia, unspecified; I34.0 Nonrheumatic mitral (valve) insufficiency; I27.20 Pulmonary hypertension, unspecified
CPT/HCPCS: 36415; 71250; 78582; 80048; 80053; 82533; 85027; 93005; 93306; 94618; 96361; 96365; 96366; 96368; 96375; 96376; 99222; 99223; 99232; 99233; 99239; 99254; 99285; 99291; 71045; 74176; 81003; 81015; 83735; 83880; 84132; 84439; 84443; 84484; 85025; 85379; 85610; 85730; 87086; 93010; J1644; J1940; J1941; J3480

== ENCOUNTER 2018-04-28 07:08 | Outpatient (CLI) | payer MEDICARE, BC, SELFPAY ==
[2018-04-28 08:21] LABS: Anion Gap 6.7 mmol/L (3-11); BUN 31 mg/dL (7-18); CO2 31.3 mmol/L (21.0-32.0); CREATININE 2.25 mg/dL (0.55-1.02); Calcium 10.5 mg/dL (8.5-10.1); Chloride 96 mmol/L (98-107); Estimated GFR 21.56 (mL/min/1.73m2); Glucose 93 mg/dL (70-100); Potassium 4.3 mmol/L (3.5-5.1); Sodium 134 mmol/L (136-145)
== END 2018-04-28 07:28 ==
PROVIDERS: PCP Internal Medicine; Visit Provider Internal Medicine
DX: R79.89 Other specified abnormal findings of blood chemistry (principal)
CPT/HCPCS: 36415; 80048

== ENCOUNTER 2018-05-04 07:19 | Outpatient (CLI) | payer MEDICARE, BC, SELFPAY ==
[2018-05-05 12:37] LABS: Hepatitis B Surface Ag Negative (NEGAT)
[2018-05-05 15:26] LABS: Anion Gap 9.7 mmol/L (3-11); BUN 46 mg/dL (7-18); CO2 27.3 mmol/L (21.0-32.0); CREATININE 3.06 mg/dL (0.55-1.02); Calcium 9.3 mg/dL (8.5-10.1); Chloride 99 mmol/L (98-107); Estimated GFR 15.12 (mL/min/1.73m2); Glucose 128 mg/dL (70-100); Sodium 136 mmol/L (136-145)
[2018-05-05 16:54] LABS: Hepatitis Be Antigen Negative (Negative)
[2018-05-05 16:57] LABS: HBc IgM Ab, S Negative (Negative)
[2018-05-06 15:24] LABS: HBV DNA Detect/Quant, PCR Undetected IU/mL (Undetected)
== END 2018-05-04 07:39 ==
PROVIDERS: Student in an Organized Health Care Education/Training Program; PCP Internal Medicine; Visit Provider Internal Medicine
DX: B16.9 Acute hepatitis B without delta-agent and without hepatic coma (principal); Z79.899 Other long term (current) drug therapy; R79.89 Other specified abnormal findings of blood chemistry
CPT/HCPCS: 36415; 80048; 87340; 87517; 86705; 87350

== ENCOUNTER 2018-05-14 22:05 | Inpatient (IN) | payer MEDICARE, BC, SELFPAY ==
[2018-05-14] VITALS (23 sets, daily range): BP systolic 161–172; BP diastolic 75–151; PULSE 83–103; RESP 10–31; TEMP 36.7; O2SAT 74–97
--- NOTE | 2018-05-14 22:13 | DI.RAD_ITS ---
SYMPTOM/DIAGNOSIS: CHEST PRESSURE, CRACKLES IN RT BASE PORTABLE AP CHEST: Comparison is made with 04/22/18. The heart is not enlarged. There are bilateral pulmonary opacities. There is blunting of the costophrenic angles bilaterally which may represent small pleural effusions. No pneumothorax is identified. Degenerative changes are seen in the spine. IMPRESSION: Bilateral pulmonary opacities and tiny pleural effusions. These may represent pneumonia. Pulmonary edema cannot be excluded. Please correlate clinically.
[2018-05-14] MEDS: Aspirin 81 MG CHEW 324 MG CH (22:24)
[2018-05-14] MEDS: Albuterol/Ipratropium 3 ML UPD VIAL UPD (22:24)
--- NOTE | 2018-05-14 22:25 | NUR.NOTE ---
patient placed on continous phototypesetting equipment monitor Nursing Note:
[2018-05-14 22:28] LABS: Abs Immature Grans 0.01 k/cumm (0.0-0.09); Absolute Basophil Count 0.06 k/cumm (0.0-0.2); Absolute Lymphocyte Count 1.78 k/cumm (1.2-3.4); Absolute Monocyte Count 0.65 k/cumm (0.11-0.7); Absolute Neutrophil Count 3.69 k/cumm (1.2-6.7); Basophils % 0.8; Eosinophils % 13.9; HCT 38.8 % (36.0-46.0); HGB 13.4 g/dL (12.0-15.5); Immature Grans % 0.1; Lymphocytes % 24.8; Mean Corp. HGB Concentration 34.5 g/dL (32.0-36.0); Mean Corpuscular Hemoglobin 30.9 pg (27.0-33.0); Mean Corpuscular Volume 89.6 fL (80-95); Mean Platelet Volume 11.2 fL (8.0-11.0); Neutrophils % 51.4; Platelet Count 204 x1000/uL (130-400); RBC 4.33 m/cumm (4.00-5.20); RBC Distribution Width 14.1 % (11.7-14.6); White Blood Cell Count 7.19 k/cumm (4.4-10.8)
--- NOTE | 2018-05-14 22:38 | ED.GENADUL_ITS ---
Discharge Plan Disposition Patient Disposition: [facility] INPATIENT Condition: Stable Discharge Details Chief Complaint: SOB Clinical Impression: Acute exacerbation of CHF (congestive heart failure), Hypoxemia, Acute on chronic kidney failure Primary Care Provider: Sanjuanita Lee ED Provider: Jerson Kellogg Home Meds and New Rx's Prescriptions: No Action atorvastatin 40 mg tablet 40 mg PO DAILY Qty: 90 RF: 3 aspirin [Aspir-81] 81 MG tablet,delayed release (DR/EC) 81 mg PO DAILY RF: 0 cholecalciferol (vitamin D3) [Vitamin D3] 1,000 UNIT capsule 1,000 unit PO DAILY RF: 0 gabapentin 800 MG tablet 800 mg PO HS Qty: 90 RF: 3 amlodipine 10 mg Tablet 10 mg PO DAILY Qty: 30 RF: 0 labetalol 100 mg tablet 100 mg PO BID RF: 0 Medical Decision Making This is a 67-year-old female who presents for acute shortness of breath, and hypoxemia. The patient has a history of ejection fraction of 35%, AAA, hypertension, renal artery stenosis high cholesterol, and recently had a notable congestive heart failure exacerbation on roughly 3 weeks ago. She was scheduled for an outpatient stress test but did not get this secondary to a snowstorm after it was canceled. Patient just stopped her furosemide 2 days ago, and then suddenly tonight and notable shortness of breath and some chest heaviness. On arrival the patient was saturating in the 70s however she looked very well, showed no signs of severe distress. Nonrebreather did bring her oxygen up to the high 80s, she was then placed on BiPAP by staff, she came up to the 90s on 50% FiO2. She was given a breathing treatment with some mild improvement, as well as a nitroglycerin which also led to some mild improvement. EKG demonstrates inverted T waves in V4 V5 and V6, troponin is normal. Renal function is elevated even in light of her chronic renal disease. D-dimer is elevated at 2900, however because of the patient's creatinine and GFR she is not a candidate for CT angiogram. Chest x-ray demonstrates evidence of opacities in the right midlung and both bases may represent atelectasis or pneumonia. With no fever, chills, or cough prior to tonight I feel that pneumonia is unlikely a nd her symptoms and x-ray findings are more consistent with CHF exacerbation. ProBNP is elevated at 18,000. TSH is also notably high at 12, however free T4 is normal. Currently on BiPAP the patient's oxygen saturations are notably improved, and she feels much better. She is sitting comfortably in bed. Because of her clinical picture suggestive of CHF exacerbation we did give 20 of Lasix. Because of the EKG changes I did contact [facility] cardiology and spoke with Dr. King, I discussed the patient's entire clinical picture and laboratory workup as well as the imaging findings. He did not recommend any heparinization at this time. And aspirin is already been given. He recommends trending the troponins and repeat EKGs in the morning. He too feels that she is not a candidate for cardiac catheterization right now but does recommend eventual cardiac catheterization at a later date when renal function is improving. I did contact her hospitalist Dr. Sharpe who also admitted her last time, I discussed the case with him, including the patient's laboratory workup and imaging findings. I did recommend VQ scan potentially in the morning for further evaluation of the elevated d-dimer, however he would like to hold off on any anticoagulation at this time. He did request that I put in bridging orders in the meantime as well as a troponin for 6 AM, I have placed these. We will co ntinue her diuresis efforts, continue her BiPAP, and admit. I have extensively reviewed the treatment plan with the patient. I have addressed all patient concerns at this time. I have also discussed the plan with the admitting physician and they agree with the current assessment and plan and have agreed to assume responsibility for the patient. All parties demonstrate verbal understanding and agreement with our assessment and plan at this time. EKG 22: 14 Rate 104, NV 142, QTc 442, QRS 90, sinus tachycardia, inverted T wave in V4 V5 V6 with no significant depression. No reciprocal ST elevation, no Q waves. These changes for T wave inversions are new compared to prior EKG from 04/20/18. FINDINGS: Lungs: Opacities in the right midlung and both bases may represent atelectasis or pneumonia. Pleural space: Unremarkable. No pleural effusion. No pneumothorax. Heart/Mediastinum: Unremarkable. No cardiomegaly. Bones/joints: Unremarkable. IMPRESSION: Opacities in the right midlung and both bases may represent atelectasis or pneumonia. Dictated and Authenticated by: Larisa Delgado MD. [facility] General Date/Time Provider Initiated Documentation: 05/14/18 22:06 . [facility] Narrative: This is a 67-year-old female with a past medical history of hypertension, systolic CHF with an EF of 35%, high cholesterol, AAA, renal artery stenosis and chronic renal failure, as well as hepatitis B who presents today for evaluation of shortness of breath and chest heaviness. The patient was actually seen and assessed here on April 20 she had very similar symptoms of chest pain, shortness of breath, notable hypoxemia, which in the end was secondary to a congestive heart failure exacerbation. She responded well to BiPAP, Lasix, and blood pressure control. She presents today for similar symptoms of chest heaviness and shortness of breath. Patient states that 1 hour prior to arrival she suddenly began having difficulty breathing, felt like there was a heavy weight on her chest. She does admit to a cough that started 1-2 hours ago. She denies any previous cough, fever, or chills. She denies any pleuritic chest pain, actual chest pain, arm neck or shoulder pain. Of note she did just stop her furosemide 2 days ago, which seemed to be an exacerbating f actor on her last visit when she had just decreased her Lasix at that time. Patient does have a tobacco history in the past, she had stopped smoking 10 years ago. Patient denies any previous cardiac ischemic disease. She was supposed to get a stress test 1-2 weeks ago after she was discharged however unfortunately because of the snowstorm the painter sign maintenance were not able to make it she was not able to get her stress test at that time. Patient denies any other complaints at this time. She denies any modifying or relieving factors. Denies PE risk factors such as recent long car rides, immobilization, recent surgery, prior history of DVT or PE, family history of PE or DVT, morbid obesity, exogenous estrogen and smoking, hemoptysis, history of cancer. Related Data Home Medications Medication Instructions Recorded Confirmed aspirin [Aspir-81] 81 mg PO DAILY tab-cap 04/19/13 05/14/18 cholecalciferol (vitamin D3) 1,000 unit PO DAILY 11/28/14 05/14/18 [Vitamin D3] gabapentin 800 mg PO HS #90 tab-cap 06/02/17 05/14/18 atorvastatin 40 mg tablet 40 mg PO DAILY #90 tab 01/06/18 05/14/18 amlodipine 10 mg PO DAILY #30 tab 04/25/18 05/14/18 labetalol 100 mg PO BID 05/14/18 05/14/18 Previous Rx's Medication Instructions Recorded gabapentin 800 mg PO HS #90 tab-cap 06/02/17 atorvastatin 40 mg tablet 40 mg PO DAILY #90 tab 01/06/18 amlodipine 10 mg PO DAILY #30 tab 04/25/18 Allergies Allergy/AdvReac Type Severity Reaction Status Date / Time lisinopril AdvReac Mild Rise in Verified 05/14/18 22:46 creatinine General Stated Complaint: SOB BILLY: 2 Review of Systems Review of Systems All systems reviewed & are unremarkable except as noted in HPI and below PFSH Social History foster care: No household members: spouse housing: house lives independently: Yes number of children: 2 current occupational status: employed 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 3.ENT: Atraumatic external nose and ears. Moist MM. Neck: Symmetric, trachea midline, No thyromegaly. 4.CVS: +S1/S2, No murmurs or gallops. Peripheral pulses 2+ and equal in all extremities. Brisk capillary refill in all extremities. 5.RESP: Crackles mainly in the right base, also some in the, decreased breath sounds throughout. No rhonchi or wheezes. 6.GI: Soft, Nontender/Nondistended, No hepatosplenomegaly. No guarding or rebound. 7.MSK: Normocephalic/Atraumatic, Extremities w/o deformity or ttp No cyanosis or clubbing, Normal movement of all extremities. +1 pitting edema in her lower extremities bilaterally. No calf tenderness. 8.Skin: Warm, Dry. No rashes or lesions. 9.Neuro: aluminum pourer II-XII grossly intact. Sensation grossly intact, no focal neurologic deficits. 10.Psych: (AAO) x3. Appropriate mood and affect Course Vital Signs Temperature 36.7 C 05/14/18 22:17 Pulse 103 H 05/14/18 22:17 Respiratory Rate 24 05/14/18 22:17 Blood Pressure 171/85 H 05/14/18 22:17 Pulse Oximetry 74 L 05/14/18 22:17 Temperature 36.7 C 05/14/18 22:17 Temperature Source Skin 05/14/18 22:17 Pulse 103 H 05/14/18 22:17 Respiratory Rate 24 05/14/18 22:17 Blood Pressure 171/85 H 05/14/18 22:17 Pulse Oximetry 74 L 05/14/18 22:17 Oxygen Delivery Method Room Air 05/14/18 22:17 Oxygen Flow Rate 0 05/14/18 22:17 Pain Level 7 05/14/18 22:17 Lab/Test Results Lab/Test Results: Laboratory Tests Range/Units 05/14/18 22:20 WBC (4.4-10.8) k/cumm 7.19 RBC (4.00-5.20) m/cumm 4.33 Hgb (12.0-15.5) g/dL 13.4 Hct (36.0-46.0) % 38.8 MCV (80-95) fL 89.6 MCH (27.0-33.0) pg 30.9 MCHC (32.0-36.0) g/dL 34.5 RDW (11.7-14.6) % 14.1 Plt Count (130-400) x1000/uL 204 D MPV (8.0-11.0) fL 11.2 H Immature Gran % 0.1 Neutrophils % 51.4 Lymphocytes % 24.8 Monocytes % 9.0 Eosinophils % 13.9 Basophils % 0.8 Absolute Neutrophils (1.2-6.7) k/cumm 3.69 Absolute Lymphocytes (1.2-3.4) k/cumm 1.78 Absolute Monocytes (0.11-0.7) k/cumm 0.65 Absolute Eosinophils (0.0-0.7) k/cumm 1.00 H Absolute Basophils (0.0-0.2) k/cumm 0.06
[2018-05-14 22:53] LABS: ALT 25 U/L (12-78); AST 31 U/L (15-37); Alkaline Phosphatase 71 U/L (46-116); Anion Gap 10.1 mmol/L (3-11); BUN 31 mg/dL (7-18); Bilirubin, Total 0.5 mg/dL (0.2-1.0); CO2 25.9 mmol/L (21.0-32.0); CREATININE 2.18 mg/dL (0.55-1.02); Calcium 9.4 mg/dL (8.5-10.1); Chloride 100 mmol/L (98-107); Estimated GFR 22.37 (mL/min/1.73m2); Glucose 165 mg/dL (70-100); NT-proBNP 18070 pg/mL; Potassium 4.4 mmol/L (3.5-5.1); Sodium 136 mmol/L (136-145); TSH (W/Ref FT4) 12.81 uIU/mL (0.358-3.74); Total Protein 6.7 g/dL (6.4-8.2); Troponin I < 0.02 ng/mL (0.00-0.06)
[2018-05-14] MEDS: Furosemide 20 MG/2 ML VIAL IVP (23:00)
[2018-05-14 23:02] LABS: D-Dimer 2992 ng/mlFEU (<500)
--- NOTE | 2018-05-14 23:03 | NUR.NOTE ---
patient fitted wioth bipap 65 % fiO2, chest pain 0/10 after nitro admin Nursing Note:
[2018-05-14 23:11] LABS: FREE T4 0.94 ng/dL (0.76-1.46)
[2018-05-14 23:12] LABS: PTT Activated 23.2 sec (21.0-31.4); Prothrombin Time 10.3 sec (9.3-11.0)
--- NOTE | 2018-05-14 23:15 | DI.VRAD_ITS ---
EXAM: XR Chest, 1 View EXAM DATE/TIME: 05/14/2018 10:41 PM CLINICAL HISTORY: 67 years old, female; Pain; Chest pressure TECHNIQUE: XR of the chest, 1 view. COMPARISON: CR XR PORTABLE CHEST AP 04/22/2018 6:48 AM FINDINGS: Lungs: Opacities in the right midlung and both bases may represent atelectasis or pneumonia. Pleural space: Unremarkable. No pleural effusion. No pneumothorax. Heart/Mediastinum: Unremarkable. No cardiomegaly. Bones/joints: Unremarkable. IMPRESSION: Opacities in the right midlung and both bases may represent atelectasis or pneumonia. Dictated and Authenticated by: Larisa Delgado MD. Ordering:JENNIFER Arthur MD
[2018-05-15] VITALS (38 sets, daily range): BP systolic 152–183; BP diastolic 63–84; PULSE 65–93; RESP 13–30; TEMP 36.7–37.6; O2SAT 89–98
--- NOTE | 2018-05-15 05:04 | W.PM.HP.N ---
Date of service: 05/15/18 Time of Service: 05:07 Assessment and Plan (1) CHF (congestive heart failure): Current visit: Yes Status: Chronic Acute exacerbation CHF the sudden onset along with chest pressure raises the question of flash pulmonary edema on an ischemic basis, although they discontinue indication of the diuretic may be a contributing or even sole factor. We will continue diuresis and trend out the troponins and EKG. The elevated d-dimer is noted, similar to last visit. I think the current situation is clearly all CHF and I think the d-dimer is nonspecific. I do not see any indication at present for pursuing this further History of Present Illness Narrative: Patient is a 67-year-old female with history of congestive heart failure. 2 days prior to admission she discontinued her Lasix on a trial basis. Late last night she noted sudden onset of chest pressure and shortness of breath. In the emergency findings consistent with acute exacerbation CHF. She was initially hypoxic with O2 sats in the 70s and was placed on BiPAP. She has diuresed some 650 cc and is feeling much better. Indeed, she is feeling perfectly well at present, no shortness of breath, no chest pain. 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 Smoking/Tobacco Use Status: Former Tobacco Use alcohol intake: current alcohol intake frequency: holidays/special occasions only substance use type: does not use drive intox or ride w/ 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 Meds Home Medications Medication Instructions Recorded Confirmed Type aspirin [Aspir-81] 81 mg PO DAILY tab-cap 04/19/13 05/14/18 History cholecalciferol (vitamin D3) 1,000 unit PO DAILY 11/28/14 05/14/18 History [Vitamin D3] gabapentin 800 mg PO HS #90 tab-cap 06/02/17 05/14/18 Rx atorvastatin 40 mg tablet 40 mg PO DAILY #90 tab 01/06/18 05/14/18 Rx amlodipine 10 mg PO DAILY #30 tab 04/25/18 05/14/18 Rx labetalol 100 mg PO BID 05/14/18 05/14/18 History Allergies Allergy/AdvReac Type Severity Reaction Status Date / Time lisinopril AdvReac Mild Rise in Verified 05/14/18 22:46 creatinine Exam Narrative Exam Narrative: Blood pressure 160/84, pulse 87, respirations 14, afebrile. O2 sat on room air 91-92%. HEENT is unremarkable, neck shows jugular pulse approximately 8-10 cm. Lungs show bibasilar rales. Heart regular rate and rhythm without murmurs rubs or gallops. Abdomen is soft and nontender. Extremities without cyanosis clubbing or edema. Neurological patient is alert and oriented and moves all 4 extremities equally Results Labs : 05/14/18 22:20 05/14/18 22:20 Laboratory Results - last 24 hr 05/14/18 05/14/18 05/14/18 22:20 22:20 22:20 WBC 7.19 RBC 4.33 Hgb 13.4 Hct 38.8 MCV 89.6 MCH 30.9 MCHC 34.5 RDW 14.1 Plt Count 204 D MPV 11.2 H Immature Gran % 0.1 Neutrophils % 51.4 Lymphocytes % 24.8 Monocytes % 9.0 Eosinophils % 13.9 Basophils % 0.8 Absolute Neutrophils 3.69 Absolute Lymphocytes 1.78 Absolute Monocytes 0.65 Absolute Eosinophils 1.00 H Absolute Basophils 0.06 PT 10.3 INR 1.0 APTT 23.2 D-Dimer 2992 H Sodium 136 Potassium 4.4 Chloride 100 Carbon Dioxide 25.9 Anion Gap 10.1 BUN 31 H Creatinine 2.18 H Estimated GFR/1.73 m2 22.37 Glucose 165 H Calcium 9.4 Total Bilirubin 0.5 AST 31 ALT 25 Alkaline Phosphatase 71 Troponin I < 0.02 NT-Pro-B Natriuret Pep 12579 H Total Protein 6.7 Albumin 3.0 L TSH 12.81 H Free T4 0.94 Last Vital Signs Temp 37.6 C H 01/19/19 01:26 Pulse 87 05/15/18 01:26 Resp 14 05/15/18 01:26 BP 160/84 H 05/15/18 01:26 Pulse Ox 94 L 05/15/18 01:26
--- NOTE | 2018-05-15 05:18 | HPE_ITS ---
Date of service: 05/15/18 Time of Service: 05:07 Assessment and Plan (1) CHF (congestive heart failure): Current visit: Yes Status: Chronic Acute exacerbation CHF the sudden onset along with chest pressure raises the question of flash pulmonary edema on an ischemic basis, although they discontinue indication of the diuretic may be a contributing or even sole factor. We will continue diuresis and trend out the troponins and EKG. The elevated d-dimer is noted, similar to last visit. I think the current situation is clearly all CHF and I think the d-dimer is nonspecific. I do not see any indication at present for pursuing this further History of Present Illness Narrative: Patient is a 67-year-old female with history of congestive heart failure. 2 days prior to admission she discontinued her Lasix on a trial basis. Late last night she noted sudden onset of chest pressure and shortness of breath. In the emergency findings consistent with acute exacerbation CHF. She was initially hypoxic with O2 sats in the 70s and was placed on BiPAP. She has diuresed some 650 cc and is feeling much better. Indeed, she is feeling perfectly well at present, no shortness of breath, no chest pain. 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 Smoking/Tobacco Use Status: Former Tobacco Use alcohol intake: current alcohol intake frequency: holidays/special occasions o nly substance use type: does not use drive intox or 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/ 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 Meds Home Medications Medication Instructions Recorded Confirmed Type aspirin [Aspir-81] 81 mg PO DAILY tab-cap 04/19/13 05/14/18 History cholecalciferol (vitamin D3) 1,000 unit PO DAILY 11/28/14 05/14/18 History [Vitamin D3] gabapentin 800 mg PO HS #90 tab-cap 06/02/17 05/14/18 Rx atorvastatin 40 mg tablet 40 mg PO DAILY #90 tab 01/06/18 05/14/18 Rx amlodipine 10 mg PO DAILY #30 tab 04/25/18 05/14/18 Rx labetalol 100 mg PO BID 05/14/18 05/14/18 History Allergies Allergy/AdvReac Type Severity Reaction Status Date / Time lisinopril AdvReac Mild Rise in Verified 05/14/18 22:46 creatinine Exam Narrative Exam Narrative: Blood pressure 160/84, pulse 87, respirations 14, afebrile. O2 sat on room air 91-92%. HEENT is unremarkable, neck shows jugular pulse approximately 8-10 cm. Lungs show bibasilar rales. Heart regular rate and rhythm without murmurs rubs or gallops. Abdomen is soft and nontender. Extremities without cyanosis clubbing or edema. Neurological patient is alert and oriented and moves all 4 extremities equally Results Labs : 05/14/18 22:20 05/14/18 22:20 Laboratory Results - last 24 hr 05/14/18 05/14/18 05/14/18 22:20 22:20 22:20 WBC 7.19 RBC 4.33 Hgb 13.4 Hct 38.8 MCV 89.6 MCH 30.9 MCHC 34.5 RDW 14.1 Plt Count 204 D MPV 11.2 H Immature Gran % 0.1 Neutrophils % 51.4 Lymphocytes % 24.8 Monocytes % 9.0 Eosinophils % 13.9 Basophils % 0.8 Absolute Neutrophils 3.69 Absolute Lymphocytes 1.78 Absolute Monocytes 0.65 Absolute Eosinophils 1.00 H Absolute Basophils 0.06 PT 10.3 INR 1.0 APTT 23.2 D-Dimer 2992 H Sodium 136 Potassium 4.4 Chloride 100 Carbon Dioxide 25.9 Anion Gap 10.1 BUN 31 H Creatinine 2.18 H Estimated GFR/1.73 m2 22.37 Glucose 165 H Calcium 9.4 Total Bilirubin 0.5 AST 31 ALT 25 Alkaline Phosphatase 71 Troponin I < 0.02 NT-Pro-B Natriuret Pep 38475 H Total Protein 6.7 Albumin 3.0 L TSH 12.81 H Free T4 0.94 Last Vital Signs Temp 37.6 C H 05/15/18 01:26 Pulse 87 05/15/18 01:26 Resp 14 05/15/18 01:26 BP 160/84 H 05/15/18 01:26 Pulse Ox 94 L 05/15/18 01:26
[2018-05-15 06:45] LABS: Troponin I 0.03 ng/mL (0.00-0.06)
[2018-05-15] MEDS: Aspirin E.C. 81 MG TABEC PO (09:04)
[2018-05-15] MEDS: Labetalol 100 MG TAB PO ×2 (09:04→20:28)
[2018-05-15] MEDS: amLODIPine 10 MG TAB PO (09:04)
[2018-05-15] MEDS: Atorvastatin 40 MG TAB PO (09:04)
[2018-05-15 10:25] LABS: Anion Gap 10.7 mmol/L (3-11); BUN 35 mg/dL (7-18); CO2 26.3 mmol/L (21.0-32.0); CREATININE 2.18 mg/dL (0.55-1.02); Calcium 9.6 mg/dL (8.5-10.1); Chloride 104 mmol/L (98-107); Estimated GFR 22.37 (mL/min/1.73m2); Glucose 95 mg/dL (70-100); Potassium 4.1 mmol/L (3.5-5.1); Sodium 141 mmol/L (136-145)
[2018-05-15] MEDS: Furosemide 20 MG TAB PO (12:08)
--- NOTE | 2018-05-15 12:12 | PDOC.CMIN ---
Care Management Initial Assess REASON FOR HOSPITALIZATION:: CHF Exacerbation PAST MEDICAL HISTORY/PAST SURGICAL HISTORY:: HTN (hypertension). Hepatitis B (02/24/13). Bilateral salpingectomy with oophorectomy. Colonoscopy - MAC (09/27/12). EGD W/ BS (08/12/12). Hysterectomy, Laproscopic (~01/1984) PREVIOUS FUNCTIONAL STATUS/SOCIAL/FAMILY SUPPORTS:: Charlene resides with her Rodolfo in [place]. 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 Charlene is independent at baseline, drives, and manage's IADL's. States she and her have [employer] banking accounts and she manages her own finances. CURRENT FUNCTIONAL STATUS:: Lying in bed. States she is feeling fine and would like to go home today. ADVANCE DIRECTIVES:: On file - Rodolfo Harmon () and Mary Harmon (daughter) Has patient been provided with information about the portal?: No Did the patient sign up for the portal?: No CODE STATUS:: Full Code INSURANCE COVERAGE / FINANCIAL ISSUES:: medicare. BC/BS CURRENT HOME/COMMUNITY SERVICES/EQUIPMENT:: None PRIMARY CARE PHYSICIAN:: SUZIE Lee MD POTENTIAL DISCHARGE NEEDS:: DC Instructions and follow up appointments PATIENT/FAMILY EDUCATION NEEDS:: DC Instructions and any new medications ANTICIPATED BARRIERS TO DISCHARGE:: None TRANSPORTATION:: will transport PLAN:: Charlene will return home when medically cleared for discharge. No services needed. Rodolfo will transport by car.
--- NOTE | 2018-05-15 12:20 | INITIAL_ITS ---
Care Management Initial Assess REASON FOR HOSPITALIZATION:: CHF Exacerbation PAST MEDICAL HISTORY/PAST SURGICAL HISTORY:: HTN (hypertension). Hepatitis B (02/24/13). Bilateral salpingectomy with oophorectomy. Colonoscopy - MAC (09/27/12). EGD W/ BS (08/12/12). Hysterectomy, Laproscopic (~01/1984) PREVIOUS FUNCTIONAL STATUS/SOCIAL/FAMILY SUPPORTS:: Charlene resides with her Rodolfo in [place]. 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 Charlene is independent at baseline, drives, and manage's IADL's. States she and her have [employer] banking accounts and she manages her own finances. CURRENT FUNCTIONAL STATUS:: Lying in bed. States she is feeling fine and would like to go home today. ADVANCE DIRECTIVES:: On file - Rodolfo Harmon () and Mary Harmon (daughter) Has patient been provided with information about the portal?: No Did the patient sign up for the portal?: No CODE STATUS:: Full Code INSURANCE COVERAGE / FINANCIAL ISSUES:: medicare. BC/BS CURRENT HOME/COMMUNITY SERVICES/EQUIPMENT:: None PRIMARY CARE PHYSICIAN:: SUZIE Lee MD POTENTIAL DISCHARGE NEEDS:: DC Instructions and follow up appointments PATIENT/FAMILY EDUCATION NEEDS:: DC Instructions and any new medications ANTICIPATED BARRIERS TO DISCHARGE:: None TRANSPORTATION:: will transport PLAN:: Charlene will return home when medically cleared for discharge. No services needed. Rodolfo will transport by car.
--- NOTE | 2018-05-15 16:57 | W.PM.PROGNOT ---
Date of Service Date of service: 05/15/18 Time of Service: 17:32 Assessment and Plan (1) Acute systolic CHF (congestive heart failure): Current visit: No Status: Chronic EF 35%, acute on chronic systolic CHF. Symptomatically, significantly better. Continue to monitor on telemetry with daily weights, strict I/O's. ?was this precipitated by hypertensive urgency again. Reintroduce ARB and monitor Cr. (2) AAA (abdominal aortic aneurysm): Current visit: No Status: Chronic F/u as outpatient (3) CKD (chronic kidney disease): Current visit: Yes Status: Chronic Monitor Cr carefully with re-introduction of losartan/diuresis. (4) Renal artery stenosis: Current visit: No Status: Chronic ARB reintroduced (5) Hypoxia: Current visit: Yes Status: Resolved In setting of acute CHF, resolved (6) DVT prophylaxis: Current visit: No Status: Acute Heparin SC (7) Discharge planning issues: Current visit: No Status: Acute Full code Suspect will be ready for discharge in 24 hours Subjective Interval history since last seen: Feels better today. Denies dizziness, chest pain, shortness of breath, nausea, vomiting. Exam Narrative Exam Narrative: General: A&Ox3, NAD HEENT; EOMI, MMM Heart: RRR, no m/r/g Lungs: CTAB GI: abdomen soft, nontender, nondistended Extremities: no e/c/c BLE's
[2018-05-15] MEDS: Heparin 5,000 UNITS/ML VIAL 5000 UNITS SC (20:28)
[2018-05-15] MEDS: Losartan 25 MG TAB PO (22:15)
[2018-05-15] MEDS: Gabapentin 800 MG TAB PO (22:15)
[2018-05-16] VITALS (9 sets, daily range): BP systolic 125–161; BP diastolic 70–83; PULSE 70–93; RESP 16–20; TEMP 36.5–37.7; O2SAT 91–94
[2018-05-16 06:15] LABS: Abs Immature Grans 0.01 k/cumm (0.0-0.09); Absolute Basophil Count 0.06 k/cumm (0.0-0.2); Absolute Lymphocyte Count 1.68 k/cumm (1.2-3.4); Absolute Monocyte Count 0.68 k/cumm (0.11-0.7); Absolute Neutrophil Count 2.94 k/cumm (1.2-6.7); Eosinophils % 11.5; HCT 39.9 % (36.0-46.0); HGB 13.8 g/dL (12.0-15.5); Immature Grans % 0.2; Lymphocytes % 27.7; Mean Corp. HGB Concentration 34.6 g/dL (32.0-36.0); Mean Corpuscular Hemoglobin 31.1 pg (27.0-33.0); Mean Corpuscular Volume 89.9 fL (80-95); Mean Platelet Volume 11.5 fL (8.0-11.0); Monocytes % 11.2; Neutrophils % 48.4; Platelet Count 202 x1000/uL (130-400); RBC 4.44 m/cumm (4.00-5.20); RBC Distribution Width 14.4 % (11.7-14.6); White Blood Cell Count 6.07 k/cumm (4.4-10.8)
[2018-05-16 06:41] LABS: Anion Gap 9.2 mmol/L (3-11); BUN 30 mg/dL (7-18); CO2 26.8 mmol/L (21.0-32.0); CREATININE 2.23 mg/dL (0.55-1.02); Chloride 105 mmol/L (98-107); Estimated GFR 21.79 (mL/min/1.73m2); Glucose 95 mg/dL (70-100); Magnesium 2.1 mg/dL (1.8-2.4); Potassium 3.8 mmol/L (3.5-5.1); Sodium 141 mmol/L (136-145); TSH (W/Ref FT4) 10.86 uIU/mL (0.358-3.74)
[2018-05-16 06:58] LABS: FREE T4 0.77 ng/dL (0.76-1.46)
[2018-05-16] MEDS: amLODIPine 10 MG TAB PO (08:02)
[2018-05-16] MEDS: Atorvastatin 40 MG TAB PO (08:02)
[2018-05-16] MEDS: Labetalol 100 MG TAB PO ×2 (08:02→19:44)
[2018-05-16] MEDS: Heparin 5,000 UNITS/ML VIAL 5000 UNITS SC ×2 (08:03→19:45)
[2018-05-16] MEDS: Aspirin E.C. 81 MG TABEC PO (08:03)
[2018-05-16] MEDS: Furosemide 20 MG TAB PO (08:03)
[2018-05-16] MEDS: Normal Saline Flush 10 ML SYR IVP ×2 (08:03→17:15)
--- NOTE | 2018-05-16 13:45 | PDOC.CMPRO ---
Care Management Progress Note S/O: Charlene was awake and full of energy this morning. Said the doctor was making sure her kidneys were working and would be here one more day. Concerned that she was supposed to be at work in the morning but will call to let them know she will be in on Thursday. A: 57 yo female admitted for CHF exacerbation P: Charlene will return home and may benefit from a referral to for the Telehealth program to monitor CHF. , Rodolfo, will transport when medically cleared for discharge.
--- NOTE | 2018-05-16 18:38 | PGE_ITS ---
Date of Service Date of service: 05/16/18 Time of Service: 14:20 Assessment and Plan (1) Acute systolic CHF (congestive heart failure): Current visit: No Status: Chronic EF 35%, acute on chronic systolic CHF. Clinically, euvolemic, no longer requiring oxygen. ?was this precipitated by hypertensive urgency again. Continue losartan, lasix, recheck Cr in am. Will connect with PCP in am to discuss that perhaps we should accept higher Cr numbers if they mean that the blood pressure is controlled and the patient can be kept out of the hospital. (2) AAA (abdominal aortic aneurysm): Current visit: No Status: Chronic F/u as outpatient (3) CKD (chronic kidney disease): Current visit: Yes Status: Chronic Read discussion above (4) Renal artery stenosis: Current visit: No Status: Chronic ARB reintroduced (5) Hypoxia: Current visit: Yes Status: Resolved In setting of acute CHF, resolved (6) DVT prophylaxis: Current visit: No Status: Acute Heparin SC (7) Discharge planning issues: Current visit: No Status: Acute Full code Plan is for discharge home tomorrow with [facility]. Subjective Interval history since last seen: Patient seen today ambulating multiple laps in the hallway without any distress. She denies any dizziness, chest pain, shortness of breath, nausea, vomiting. She would like to go home tomorrow. She has a list of her medications for me to review - neither losartan nor lasix are on that list. Exam Narrative Exam Narrative: General: A&Ox3, NAD HEENT; EOMI, MMM Heart: RRR, no m/r/g Lungs: CTAB GI: abdomen soft, nontender, nondistended Extremities: no e/c/c BLE's Objective Objective Clinical Data: Abnormal lab results 05/16/18 05/16/18 Range/Units 05:30 05:30 MPV 11.5 H (8.0-11.0) fL BUN 30 H (7-18) mg/dL Creatinine 2.23 H (0.55-1.02) mg/dL TSH 10.86 H (0.358-3.74) uIU/mL Vital Signs Temperature 36.5 C 05/16/18 15:55 Temperature Source Tympanic 05/16/18 15:55 Pulse 83 05/16/18 17:06 Pulse Rhythm Regular 05/16/18 08:00 Pulse 93 H 05/15/18 12:22 Respiratory Rate 18 05/16/18 15:55 Respiratory Effort Non-Labored 05/16/18 08:00 Respiratory Depth Normal 05/16/18 08:00 Respiratory Pattern Normal 05/16/18 08:00 Blood Pressure 155/81 H 05/16/18 15:55 Blood Pressure Mean 91 05/15/18 11:53 Blood Pressure Position Supine 05/15/18 00:45 Pulse Oximetry 94 L 05/16/18 15:55 Oxygen Delivery Method Room Air 05/16/18 15:55 Oxygen Flow Rate 0 05/16/18 15:55 Fraction of Inspired Oxygen (FIO2) 50 05/14/18 23:12 Pain Level 0 05/16/18 07:00 Comment 05/15/18 09:28 Intake & Output 05/15/18 05/16/18 05/16/18 23:59 11:59 23:59 Intake Total 480 / 480 130 / 380 250 / 380 Output Total 400 / 1700 Balance 80 / -1220 130 / 380 250 / 380 Weight 48.3 kg Intake: IV Oral 480 / 480 120 / 360 240 / 360 Output: Urine 400 / 1700 Other: Urine Color Yellow Straw Urine Appearance Clear Urine Odor None Stool Occult Blood Negative Stool Size Small Stool Characteristics Soft Brown Voiding Methods Toilet Laboratory Results WBC 6.07 k/cumm (4.4-10.8) 05/16/18 05:30 RBC 4.44 m/cumm (4.00-5.20) 05/16/18 05:30 Hgb 13.8 g/dL (12.0-15.5) 05/16/18 05:30 Hct 39.9 % (36.0-46.0) 05/16/18 05:30 MCV 89.9 fL (80-95) 05/16/18 05:30 MCH 31.1 pg (27.0-33.0) 05/16/18 05:30 MCHC 34.6 g/dL (32.0-36.0) 05/16/18 05:30 RDW 14.4 % (11.7-14.6) 05/16/18 05:30 Plt Count 202 x1000/uL (130-400) 05/16/18 05:30 MPV 11.5 fL (8.0-11.0) H 05/16/18 05:30 Immature Gran % 0.2 05/16/18 05:30 Neutrophils % 48.4 05/16/18 05:30 Lymphocytes % 27.7 05/16/18 05:30 Monocytes % 11.2 05/16/18 05:30 Eosinophils % 11.5 05/16/18 05:30 Basophils % 1.0 05/16/18 05:30 Absolute Neutrophils 2.94 k/cumm (1.2-6.7) 05/16/18 05:30 Absolute Lymphocytes 1.68 k/cumm (1.2-3.4) 05/16/18 05:30 Absolute Monocytes 0.68 k/cumm (0.11-0.7) 05/16/18 05:30 Absolute Eosinophils 0.70 k/cumm (0.0-0.7) 05/16/18 05:30 Absolute Basophils 0.06 k/cumm (0.0-0.2) 05/16/18 05:30 PT 10.3 sec (9.3-11.0) 05/14/18 22:20 INR 1.0 (0.9-1.1) 05/14/18 22:20 APTT 23.2 sec (21.0-31.4) 05/14/18 22:20 D-Dimer 2992 ng/mlFEU (<500) H 05/14/18 22:20 Sodium 141 mmol/L (136-145) 05/16/18 05:30 Potassium 3.8 mmol/L (3.5-5.1) 05/16/18 05:30 Chloride 105 mmol/L (98-107) 05/16/18 05:30 Carbon Dioxide 26.8 mmol/L (21.0-32.0) 05/16/18 05:30 Anion Gap 9.2 mmol/L (3-11) 05/16/18 05:30 BUN 30 mg/dL (7-18) H 05/16/18 05:30 Creatinine 2.23 mg/dL (0.55-1.02) H 05/16/18 05:30 Estimated GFR/1.73 m2 21.79 (mL/min/1.73m2) 05/16/18 05:30 Glucose 95 mg/dL (70-100) 05/16/18 05:30 Calcium 9.0 mg/dL (8.5-10.1) 05/16/18 05:30 Magnesium 2.1 mg/dL (1.8-2.4) 05/16/18 05:30 Total Bilirubin 0.5 mg/dL (0.2-1.0) 05/14/18 22:20 AST 31 U/L (15-37) 05/14/18 22:20 ALT 25 U/L (12-78) 05/14/18 22:20 Alkaline Phosphatase 71 U/L (46-116) 05/14/18 22:20 Troponin I 0.03 ng/mL (0.00-0.06) 05/15/18 05:45 NT-Pro-B Natriuret Pep 38461 pg/mL (-299) H 05/14/18 22:20 Total Protein 6.7 g/dL (6.4-8.2) 05/14/18 22:20 Albumin 3.0 g/dL (3.4-5.0) L 05/14/18 22:20 TSH 10.86 uIU/mL (0.358-3.74) H 05/16/18 05:30 Free T4 0.77 ng/dL (0.76-1.46) 05/16/18 05:30
[2018-05-16] MEDS: Gabapentin 800 MG TAB PO (22:06)
[2018-05-16] MEDS: Losartan 25 MG TAB PO (22:06)
[2018-05-17 04:55] VITALS: BP 145/85; PULSE 73; RESP 18; TEMP 36.9
[2018-05-17] MEDS: Levothyroxine 25 MCG TAB PO (05:50)
--- NOTE | 2018-05-17 05:53 | PDOC.CMDIS ---
LACE Index Scoring Tool - Questions: Length of Stay (in days): 3 Acuity (Admit via E.D.?): Yes Comorbidities: Congestive Heart Failure, Liver or Renal Disease E.D. Visits: 2 - Answers: Total Score: 13 Risk of Readmission: High Risk Care Management Discharge Reason for Hospitalization: CHF Exacerbation Discharge Plan: Charlene will return home and may benefit from a referral to for the Telehealth program to monitor CHF but does not have payer source due to homebound status; CM to discuss outpatient options as Charlene remains independent with ADLs in the community. CM discussed service with Nano of [facility] who reported Charlene's BC/BS would cover visits but she would have a co-pay of $25 each time the telemonitor was ready (MD prefers daily). Charlene reports checking her BPs three times daily and her weight twice daily and reports she will follow up with Cardiology at [facility] in mid May. Charlene reports feeling confident she can manage her own monitoring in the community; in agreement with plan. When medically cleared, Charlene will transport via private vehicle with her , Rodolfo. Patient/Family Education Needs: Review of discharge instructions; discuss Ask Me Three.
--- NOTE | 2018-05-17 05:57 | CMDISCH_ITS ---
LACE Index Scoring Tool - Questions: Length of Stay (in days): 3 Acuity (Admit via E.D.?): Yes Comorbidities: Congestive Heart Failure, Liver or Renal Disease E.D. Visits: 2 - Answers: Total Score: 13 Risk of Readmission: High Risk Care Management Discharge Reason for Hospitalization: CHF Exacerbation Discharge Plan: Charlene will return home and may benefit from a referral to for the Telehealth program to monitor CHF but does not have payer source due to homebound status; CM to discuss outpatient options as Charlene remains independent with ADLs in the community. CM discussed service with Nano of [facility] who reported Charlene's BC/BS would cover visits but she would have a co-pay of $25 each time the telemonitor was ready (MD prefers daily). Charlene reports checking her BPs three times daily and her weight twice daily and reports she will follow up with Cardiology at [facility] [place] in mid May. Charlene reports feeling confident she can manage her own monitoring in the community; in agreement with plan. When medically cleared, Charlene will transport via private vehicle with her , Rodolfo. Patient/Family Education Needs: Review of discharge instructions; discuss Ask Me Three.
[2018-05-17 07:01] VITALS: PULSE 72
[2018-05-17 07:25] VITALS: O2SAT 96
[2018-05-17 07:32] LABS: Abs Immature Grans 0.01 k/cumm (0.0-0.09); Absolute Basophil Count 0.03 k/cumm (0.0-0.2); Absolute Eosinophil Count 0.74 k/cumm (0.0-0.7); Absolute Lymphocyte Count 1.99 k/cumm (1.2-3.4); Absolute Neutrophil Count 2.48 k/cumm (1.2-6.7); Basophils % 0.5; Eosinophils % 12.2; HCT 39.6 % (36.0-46.0); HGB 13.4 g/dL (12.0-15.5); Immature Grans % 0.2; Lymphocytes % 32.9; Mean Corp. HGB Concentration 33.8 g/dL (32.0-36.0); Mean Corpuscular Hemoglobin 30.6 pg (27.0-33.0); Mean Corpuscular Volume 90.4 fL (80-95); Mean Platelet Volume 11.7 fL (8.0-11.0); Monocytes % 13.2; Platelet Count 221 x1000/uL (130-400); RBC 4.38 m/cumm (4.00-5.20); RBC Distribution Width 14.3 % (11.7-14.6); White Blood Cell Count 6.05 k/cumm (4.4-10.8)
[2018-05-17 07:33] VITALS: BP 146/77; PULSE 72; RESP 17; TEMP 36.6; O2SAT 94
[2018-05-17 07:59] LABS: Anion Gap 8.6 mmol/L (3-11); BUN 35 mg/dL (7-18); CO2 25.4 mmol/L (21.0-32.0); CREATININE 2.51 mg/dL (0.55-1.02); Calcium 8.9 mg/dL (8.5-10.1); Chloride 107 mmol/L (98-107); Estimated GFR 19.01 (mL/min/1.73m2); Glucose 94 mg/dL (70-100); Magnesium 2.1 mg/dL (1.8-2.4); Potassium 3.8 mmol/L (3.5-5.1); Sodium 141 mmol/L (136-145)
[2018-05-17] MEDS: Atorvastatin 40 MG TAB PO (08:43)
[2018-05-17] MEDS: Heparin 5,000 UNITS/ML VIAL 5000 UNITS SC (08:43)
[2018-05-17] MEDS: Aspirin E.C. 81 MG TABEC PO (08:43)
[2018-05-17] MEDS: amLODIPine 10 MG TAB PO (08:43)
[2018-05-17] MEDS: Furosemide 20 MG TAB PO (08:43)
[2018-05-17] MEDS: Labetalol 100 MG TAB PO (08:44)
[2018-05-17 11:30] VITALS: BP 135/75; PULSE 71; RESP 16; TEMP 36.4; O2SAT 95
[2018-05-17 11:45] VITALS: PULSE 76
--- NOTE | 2018-05-17 12:28 | W.PM.DS.N ---
Date of service: 05/17/18 Time of Service: 12:28 DS: Diagnosis Discharge Diagnosis (1) Hypertensive emergency: Status: Resolved (2) Acute systolic CHF (congestive heart failure): Status: Chronic (3) Hypoxia: Status: Resolved (4) Renal artery stenosis: Status: Chronic (5) CKD (chronic kidney disease): Status: Chronic (6) AAA (abdominal aortic aneurysm): Status: Chronic (7) Subclinical hypothyroidism: Status: Acute Discharge Plan Disposition Patient Disposition: HOME Condition: Stable Discharge Details Reason For Visit: CHF EXACERBATION Admit Date/Time: 05/14/18 23:56 Admit Provider: Regan Sharpe Attending Provider: Regan Sharpe Primary Care Provider: Sanjuanita eLe Hospital Course Hospital Course: Ms Harmon is a 67 year old female with PMHx of renal artery stenosis bilaterally, as well as poorly controlled hypertension, hyperlipidemia, AAA, tobacco abuse, who was admitted to [facility] ICU on 05/15/18 for acute CHF with hypoxia in setting of hypertensive emergency. Patient's medication list reveals that she was not taking either losartan (unknown amount of time) or lasix (at least 2 days) prior to admission. She was treated with diuresis, BiPAP therapy. Her oxygen requirements normalized with diuresis and BP control. She was resumed on her losartan and transitioned to a gentle dose of PO lasix. I have reached out to [facility] nephrology (Dr Kemp), who will be seeing the patient in May. We discussed the rising creatinine in response to the losartan-lasix therapy. Per Dr Kemp, it is important to see the trajectory of the creatinine rise in the patient. In other words, some rise in creatinine with this therapy is acceptable (Cr of 3.0 is ok) if the Cr stays there. However, if the Creatinine continues to go up, then it is an indication to stop the losartan/diuretics and to try to control BP by increasing the labetalol dose. In setting of renal artery stenosis, ARB or ABBY-i therapy is preferred - but if she indeed cannot tolerate this, then revascularization should be reconsidered yet again. The patient follows with vascular surgery at [facility]. The patient has an appointment scheduled with nephrology in May. We are re-referring the patient to vascular surgery for sooner follow up. She is to have her chemistries checked on 05/20/18 and 05/24/18 - the results are to go to her PCP. She is asked to weigh herself daily and to contact her PCP if she notices a weight gain of 3 lbs or greater in 3-5 days. Her lasix on discharge is every other day. Home Meds and New Rx's Prescriptions: New levothyroxine 25 mcg Tablet 25 mcg PO DAILY@0600 Qty: 30 RF: 0 furosemide 20 mg Tablet 20 mg PO Q48H Qty: 10 RF: 0 losartan 25 mg Tablet 25 mg PO HS Qty: 30 RF: 0 Continued atorvastatin 40 mg tablet 40 mg PO DAILY Qty: 90 RF: 3 aspirin [Aspir-81] 81 MG tablet,delayed release (DR/EC) 81 mg PO DAILY RF: 0 cholecalciferol (vitamin D3) [Vitamin D3] 1,000 UNIT capsule 1,000 unit PO DAILY RF: 0 gabapentin 800 MG tablet 800 mg PO HS Qty: 90 RF: 3 amlodipine 10 mg Tablet 10 mg PO DAILY Qty: 30 RF: 0 labetalol 100 mg tablet 100 mg PO BID RF: 0 Discharge Instructions Instructions: Chronic Hypertension (DC) Additional Instructions: Take lasix every other day. Weigh yourself daily. Call your PCP if you are gaining 3 lbs or greater in 3-5 days. Blood work 05/20 and 05/24. Return to the hospital with any fever, bleeding, chest pain, or shortness of breath. Referrals: Sanjuanita Lee MD [Primary Care Provider] - (3-5 days) Isac Moody [ NON-[facility] STAFF PHYSICIAN] - Activity:: Activity as Tolerated Equipment/Supplies:: No Equipment Needed Diet:: Low Sodium Discharge Orders Discharge Orders: Discharge Order (Routine); Ordered 05/17/18 Ordered By: Akua Baugh Other Ambulatory Orders: Basic Metabolic Panel (Routine) Timeframe: 20180520 Location: Determined by Patient Ordered By: Akua Baugh Basic Metabolic Panel (Routine) Timeframe: [id number] Location: Determined by Patient Ordered By: Akua Baugh Exam Narrative Exam Narrative: General: A&Ox3, NAD HEENT; EOMI, MMM Heart: RRR, no m/r/g Lungs: CTAB GI: abdomen soft, nontender, nondistended Extremities: no e/c/c BLE's DS: Data Vitals/I&O Vitals and I&O: Vital Signs Temperature 36.6 C 05/17/18 07:33 Temperature Source Tympanic 05/17/18 07:33 Pulse 76 05/17/18 11:45 Pulse Rhythm Regular 05/17/18 09:22 Pulse 93 H 05/15/18 12:22 Respiratory Rate 17 05/17/18 07:33 Respiratory Effort Non-Labored 05/17/18 09:22 Respiratory Depth Normal 05/17/18 09:22 Respiratory Pattern Normal 05/17/18 09:22 Blood Pressure 146/77 H 05/17/18 07:33 Blood Pressure Mean 91 05/15/18 11:53 Blood Pressure Position Supine 05/15/18 00:45 Pulse Oximetry 94 L 05/17/18 07:33 Oxygen Delivery Method Room Air 05/17/18 07:33 Oxygen Flow Rate 0 05/17/18 07:33 Fraction of Inspired Oxygen (FIO2) 50 05/14/18 23:12 Pain Level 0 05/16/18 07:00 Comment 05/15/18 09:28 Intake & Output 05/16/18 05/17/18 05/17/18 23:59 11:59 23:59 Intake Total 250 / 380 240 / 240 Balance 250 / 380 240 / 240 Weight 48.3 kg Intake: IV Oral 240 / 360 240 / 240 Other: Urine Color Yellow Voiding Methods Toilet Completed studies during hospitalization [Text1]: CXR: Bilateral pulmonary opacities and tiny pleural effusions. These may represent pneumonia. Pulmonary edema cannot be excluded. Please correlate clinically. Labs on day of discharge: Labs from last 24 hours 05/17/18 05/17/18 06:20 06:20 WBC 6.05 RBC 4.38 Hgb 13.4 Hct 39.6 MCV 90.4 MCH 30.6 MCHC 33.8 RDW 14.3 Plt Count 221 MPV 11.7 H Immature Gran % 0.2 Neutrophils % 41.0 Lymphocytes % 32.9 Monocytes % 13.2 Eosinophils % 12.2 Basophils % 0.5 Absolute Neutrophils 2.48 Absolute Lymphocytes 1.99 Absolute Monocytes 0.80 H Absolute Eosinophils 0.74 H Absolute Basophils 0.03 Sodium 141 Potassium 3.8 Chloride 107 Carbon Dioxide 25.4 Anion Gap 8.6 BUN 35 H Creatinine 2.51 H Estimated GFR/1.73 m2 19.01 Glucose 94 Calcium 8.9 Magnesium 2.1 PFSH Medical History HTN (hypertension) Hepatitis B (02/24/13) Surgical History Bilateral salpingectomy with oophorectomy Colonoscopy - MAC (09/27/12) EGD W/ BS (08/12/12) Hysterectomy, Laproscopic () Family History Grandmother Essential hypertension Social History foster care: No household members: spouse housing: house lives independently: Yes number of children: 2 current occupational status: employed 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
--- NOTE | 2018-05-17 12:36 | DSE_ITS ---
Date of service: 05/17/18 Time of Service: 12:28 DS: Diagnosis Discharge Diagnosis (1) Hypertensive emergency: Status: Resolved (2) Acute systolic CHF (congestive heart failure): Status: Chronic (3) Hypoxia: Status: Resolved (4) Renal artery stenosis: Status: Chronic (5) CKD (chronic kidney disease): Status: Chronic (6) AAA (abdominal aortic aneurysm): Status: Chronic (7) Subclinical hypothyroidism: Status: Acute Discharge Plan Disposition Patient Disposition: HOME Condition: Stable Discharge Details Reason For Visit: CHF EXACERBATION Admit Date/Time: 05/14/18 23:56 Admit Provider: Regan Sharpe Attending Provider: Regan Sharpe Primary Care Provider: Sanjuanita Lee Hospital Course Hospital Course: Ms Harmon is a 67 year old female with PMHx of renal artery stenosis bilaterally, as well as poorly controlled hypertension, hyperlipidemia, AAA, tobacco abuse, who was admitted to [facility] ICU on 05/15/18 for acute CHF with hypoxia in setting of hypertensive emergency. Patient's medication list reveals that she was not taking either losartan (unknown amount of time) or lasix (at least 2 days) prior to admission. She was treated with diuresis, BiPAP therapy. Her oxygen requirements normalized with diuresis and BP control. She was resumed on her losartan and transitioned to a gentle dose of PO lasix. I have reached out to [facility] nephrology (Dr Kemp), who will be seeing the patient in May. We discussed the rising creatinine in response to the losartan-lasix therapy. Per Dr Kemp, it is important to see the trajectory of the creatinine rise in the patient. In other words, some rise in creatinine with this therapy is acceptable (Cr of 3.0 is ok) if the Cr stays there. However, if the Creatinine continues to go up, then it is an indication to stop the losartan/diuretics and to try to control BP by increasing the labetalol dose. In setting of renal artery stenosis, ARB or ABBY-i therapy is preferred - but if she indeed cannot tolerate this, then revascularization should be reconsidered yet again. The patient follows with vascular surgery at [facility]. The patient has an appointment scheduled with nephrology in May. We are re-referring the patient to vascular surgery for sooner follow up. She is to have her chemistries checked on 05/20/18 and 05/24/18 - the results are to go to her PCP. She is asked to weigh herself daily and to contact her PCP if she notices a weight gain of 3 lbs or greater in 3-5 days. Her lasix on discharge is every other day. Home Meds and New Rx's Prescriptions: New levothyroxine 25 mcg Tablet 25 mcg PO DAILY@0600 Qty: 30 RF: 0 furosemide 20 mg Tablet 20 mg PO Q48H Qty: 10 RF: 0 losartan 25 mg Tablet 25 mg PO HS Qty: 30 RF: 0 Continued atorvastatin 40 mg tablet 40 mg PO DAILY Qty: 90 RF: 3 aspirin [Aspir-81] 81 MG tablet,delayed release (DR/EC) 81 mg PO DAILY RF: 0 cholecalciferol (vitamin D3) [Vitamin D3] 1,000 UNIT capsule 1,000 unit PO DAILY RF: 0 gabapentin 800 MG tablet 800 mg PO HS Qty: 90 RF: 3 amlodipine 10 mg Tablet 10 mg PO DAILY Qty: 30 RF: 0 labetalol 100 mg tablet 100 mg PO BID RF: 0 Discharge Instructions Instructions: Chronic Hypertension (DC) Additional Instructions: Take lasix every other day. Weigh yourself daily. Call your PCP if you are gaining 3 lbs or greater in 3-5 days. Blood work 05/20 and 05/24. Return to the hospital with any fever, bleeding, chest pain, or shortness of breath. Referrals: Sanjuanita Lee MD [Primary Care Provider] - (3-5 days) Isac Moody [ NON-[facility] STAFF PHYSICIAN] - Activity:: Activity as Tolerated Equipment/Supplies:: No Equipment Needed Diet:: Low Sodium Discharge Orders Discharge Orders: Discharge Order (Routine); Ordered 05/17/18 Ordered By: Akua Baugh Other Ambulatory Orders: Basic Metabolic Panel (Routine) Timeframe: 20180520 Location: Determined by Patient Ordered By: Akua Baugh Basic Metabolic Panel (Routine) Timeframe: 20180524 Location: Determined by Patient Ordered By: Akua Baugh Exam Narrative Exam Narrative: General: A&Ox3, NAD HEENT; EOMI, MMM Heart: RRR, no m/r/g Lungs: CTAB GI: abdomen soft, nontender, nondistended Extremities: no e/c/c BLE's DS: Data Vitals/I&O Vitals and I&O: Vital Signs Temperature 36.6 C 05/17/18 07:33 Temperature Source Tympanic 05/17/18 07:33 Pulse 76 05/17/18 11:45 Pulse Rhythm Regular 05/17/18 09:22 Pulse 93 H 05/15/18 12:22 Respiratory Rate 17 05/17/18 07:33 Respiratory Effort Non-Labored 05/17/18 09:22 Respiratory Depth Normal 05/17/18 09:22 Respiratory Pattern Normal 05/17/18 09:22 Blood Pressure 146/77 H 05/17/18 07:33 Blood Pressure Mean 91 05/15/18 11:53 Blood Pressure Position Supine 05/15/18 00:45 Pulse Oximetry 94 L 05/17/18 07:33 Oxygen Delivery Method Room Air 05/17/18 07:33 Oxygen Flow Rate 0 05/17/18 07:33 Fraction of Inspired Oxygen (FIO2) 50 05/14/18 23:12 Pain Level 0 05/16/18 07:00 Comment 05/15/18 09:28 Intake & Output 05/16/18 05/17/18 05/17/18 23:59 11:59 23:59 Intake Total 250 / 380 240 / 240 Balance 250 / 380 240 / 240 Weight 48.3 kg Intake: IV Oral 240 / 360 240 / 240 Other: Urine Color Yellow Voiding Methods Toilet Completed studies during hospitalization [Text1]: CXR: Bilateral pulmonary opacities and tiny pleural effusions. These may represent pneumonia. Pulmonary edema cannot be excluded. Please correlate clinically. Labs on day of discharge: Labs from last 24 hours 05/17/18 05/17/18 06:20 06:20 WBC 6.05 RBC 4.38 Hgb 13.4 Hct 39.6 MCV 90.4 MCH 30.6 MCHC 33.8 RDW 14.3 Plt Count 221 MPV 11.7 H Immature Gran % 0.2 Neutrophils % 41.0 Lymphocytes % 32.9 Monocytes % 13.2 Eosinophils % 12.2 Basophils % 0.5 Absolute Neutrophils 2.48 Absolute Lymphocytes 1.99 Absolute Monocytes 0.80 H Absolute Eosinophils 0.74 H Absolute Basophils 0.03 Sodium 141 Potassium 3.8 Chloride 107 Carbon Dioxide 25.4 Anion Gap 8.6 BUN 35 H Creatinine 2.51 H Estimated GFR/1.73 m2 19.01 Glucose 94 Calcium 8.9 Magnesium 2.1 PFSH Medical History HTN (hypertension) Hepatitis B (02/24/13) Surgical History Bilateral salpingectomy with oophorectomy Colonoscopy - MAC (09/27/12) EGD W/ BS (08/12/12) Hysterectomy, Laproscopic () Family History Grandmother Essential hypertension Social History foster care: No household members: spouse housing: house lives independently: Yes number of children: 2 current occupational status: employed 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
== END 2018-05-17 16:08 | disposition home or self-care (01) | DRG 304 ==
LOC: ER 05-15 00:25 → ICU 05-15 00:45 → MS 05-17 12:36 → ICU 05-25 14:10
PROVIDERS: Admitting Provider General Practice; Emergency Provider Student in an Organized Health Care Education/Training Program; PCP Internal Medicine; Visit Provider Internal Medicine
DX: I16.1 Hypertensive emergency (principal); I50.21 Acute systolic (congestive) heart failure; I13.0 Hypertensive heart and chronic kidney disease with heart failure and stage 1 through stage 4 chronic kidney disease, or unspecified chronic kidney disease; N18.9 Chronic kidney disease, unspecified; Z87.891 Personal history of nicotine dependence; R09.02 Hypoxemia; I70.1 Atherosclerosis of renal artery; E02 Subclinical iodine-deficiency hypothyroidism; E78.5 Hyperlipidemia, unspecified; T46.5X6A Underdosing of other antihypertensive drugs, initial encounter; T50.1X6A Underdosing of loop [high-ceiling] diuretics, initial encounter; I71.4 Abdominal aortic aneurysm, without rupture
CPT/HCPCS: 36415; 80048; 80053; 93005; 94618; 94640; 96374; 99222; 99232; 99239; 99285; NC; 71045; 83735; 83880; 84439; 84443; 84484; 85025; 85379; 85610; 85730; 93010; J1644; J1941; J7620

== ENCOUNTER 2018-05-18 01:56 | Outpatient (CLI) | payer MEDICARE, BC, SELFPAY ==
--- NOTE | 2018-05-26 13:53 | NS.NUTBLAN_ITS ---
Date of service: 05/18/18 Time of Service: 13:00 Nutritional Consult ASSESSMENT: Ms. Harmon presents for nutritional counseling for CHF. She reports she has many questions about what she can and cannot eat. She has been eating Cheerios or [place] Flakes for breakfast. She has a grapefruit for lunch and orange juice. Dinner is often pasta or potato and a vegetable. She verbalizes that she is not a big eater, but she does like convenience foods and lunch meats etc. NUTRITIONAL DIAGNOSIS: Undesirable food choices related to knowledge defecit. INTERVENTION: We reviewed the DASH eating plan. Asked Ms. Harmon what small steps she could make towards getting her diet closer to the DASH eating plan. We revewed label reading. Ms. Harmon was able to demonstrate a good understanding. We reviewed nutrition therapy for CHF. Ms. Harmon verbalized a good understanding. Provided written materials on DASH and CHF. MONITORING AND EVALUATION: 1. Ms. Harmon will self monitor her progress and has my contact information. She is encouraged to follow up with me at anytime with questions or concerns regarding her nutrition therapy. 2. Ms. Harmon will evaluate her nutrition care planning needs and follow up with me as needed. Time Spent in Nutritional Counseling and Treatment: 29 minutes
== END 2018-05-18 02:16 ==
PROVIDERS: PCP Internal Medicine; Visit Provider Dietitian, Registered
DX: I50.9 Heart failure, unspecified (principal); E63.8 Other specified nutritional deficiencies; Z72.4 Inappropriate diet and eating habits; Z71.3 Dietary counseling and surveillance
CPT/HCPCS: 97802

== ENCOUNTER 2018-05-20 00:58 | Outpatient (CLI) | payer MEDICARE, BC, SELFPAY ==
[2018-05-20 08:56] LABS: Anion Gap 8.6 mmol/L (3-11); BUN 53 mg/dL (7-18); CO2 28.4 mmol/L (21.0-32.0); CREATININE 3.24 mg/dL (0.55-1.02); Calcium 9.2 mg/dL (8.5-10.1); Chloride 102 mmol/L (98-107); Estimated GFR 14.16 (mL/min/1.73m2); Glucose 118 mg/dL (70-100); Potassium 4.4 mmol/L (3.5-5.1); Sodium 139 mmol/L (136-145)
== END 2018-05-20 01:18 ==
PROVIDERS: PCP Internal Medicine; Visit Provider Internal Medicine
DX: N18.9 Chronic kidney disease, unspecified (principal); R79.89 Other specified abnormal findings of blood chemistry
CPT/HCPCS: 36415; 80048

== ENCOUNTER 2018-05-24 01:21 | Outpatient (CLI) | payer MEDICARE, BC, SELFPAY ==
[2018-05-24 09:27] LABS: Anion Gap 11.5 mmol/L (3-11); BUN 61 mg/dL (7-18); CO2 24.5 mmol/L (21.0-32.0); CREATININE 3.36 mg/dL (0.55-1.02); Calcium 9.2 mg/dL (8.5-10.1); Chloride 104 mmol/L (98-107); Estimated GFR 13.58 (mL/min/1.73m2); Glucose 98 mg/dL (70-100); Potassium 4.5 mmol/L (3.5-5.1); Sodium 140 mmol/L (136-145)
== END 2018-05-24 01:41 ==
PROVIDERS: PCP Internal Medicine; Visit Provider Internal Medicine
DX: N18.9 Chronic kidney disease, unspecified (principal); I10 Essential (primary) hypertension
CPT/HCPCS: 36415; 80048

== ENCOUNTER 2018-05-26 12:11 | Outpatient (REF) | payer MEDICARE, BC, SELFPAY ==
[2018-05-26 12:27] LABS: Anion Gap 9.2 mmol/L (3-11); BUN 49 mg/dL (7-18); CO2 26.8 mmol/L (21.0-32.0); CREATININE 3.05 mg/dL (0.55-1.02); Calcium 9.2 mg/dL (8.5-10.1); Chloride 104 mmol/L (98-107); Estimated GFR 15.18 (mL/min/1.73m2); Glucose 103 mg/dL (70-100); Potassium 4.5 mmol/L (3.5-5.1); Sodium 140 mmol/L (136-145)
== END 2018-05-26 12:31 ==
LOC: LBN 12:11
PROVIDERS: PCP Internal Medicine; Visit Provider Internal Medicine
DX: R79.89 Other specified abnormal findings of blood chemistry (principal)
CPT/HCPCS: 80048

== ENCOUNTER 2018-06-01 07:13 | Outpatient (CLI) | payer MEDICARE, BC, SELFPAY ==
[2018-06-01 08:38] LABS: Anion Gap 10.9 mmol/L (3-11); BUN 52 mg/dL (7-18); CO2 27.1 mmol/L (21.0-32.0); Calcium 9.3 mg/dL (8.5-10.1); Chloride 103 mmol/L (98-107); Estimated GFR 12.42 (mL/min/1.73m2); Glucose 101 mg/dL (70-100); Potassium 4.3 mmol/L (3.5-5.1); Sodium 141 mmol/L (136-145)
[2018-06-01 08:52] LABS: CREATININE 3.63 mg/dL (0.55-1.02)
== END 2018-06-01 07:33 ==
PROVIDERS: PCP Internal Medicine; Visit Provider Internal Medicine
DX: R73.01 Impaired fasting glucose (principal); R79.89 Other specified abnormal findings of blood chemistry; I10 Essential (primary) hypertension; I70.1 Atherosclerosis of renal artery
CPT/HCPCS: 36415; 80048

== ENCOUNTER 2018-06-04 01:28 | Outpatient (CLI) | payer MEDICARE, BC, SELFPAY ==
[2018-06-04 08:16] LABS: Anion Gap 6.4 mmol/L (3-11); BUN 51 mg/dL (7-18); CO2 29.6 mmol/L (21.0-32.0); CREATININE 3.17 mg/dL (0.55-1.02); Calcium 9.1 mg/dL (8.5-10.1); Chloride 103 mmol/L (98-107); Estimated GFR 14.52 (mL/min/1.73m2); Glucose 106 mg/dL (70-100); Potassium 4.1 mmol/L (3.5-5.1); Sodium 139 mmol/L (136-145)
== END 2018-06-04 01:48 ==
PROVIDERS: PCP Internal Medicine; Visit Provider Internal Medicine
DX: I70.1 Atherosclerosis of renal artery (principal)
CPT/HCPCS: 36415; 80048

== ENCOUNTER 2018-06-07 07:11 | Outpatient (CLI) | payer MEDICARE, BC, SELFPAY ==
[2018-06-07 08:38] LABS: Anion Gap 8.5 mmol/L (3-11); BUN 59 mg/dL (7-18); CO2 28.5 mmol/L (21.0-32.0); Calcium 9.2 mg/dL (8.5-10.1); Chloride 103 mmol/L (98-107); Estimated GFR 12.54 (mL/min/1.73m2); Glucose 109 mg/dL (70-100); Potassium 3.8 mmol/L (3.5-5.1); Sodium 140 mmol/L (136-145)
== END 2018-06-07 07:31 ==
PROVIDERS: PCP Internal Medicine; Visit Provider Internal Medicine
DX: R79.89 Other specified abnormal findings of blood chemistry (principal); I70.1 Atherosclerosis of renal artery; I50.9 Heart failure, unspecified
CPT/HCPCS: 36415; 80048

== ENCOUNTER 2018-07-26 02:03 | Outpatient (CLI) | payer MEDICARE, BC, SELFPAY ==
[2018-07-26 09:13] LABS: Anion Gap 11.2 mmol/L (3-11); BUN 37 mg/dL (7-18); CO2 28.8 mmol/L (21.0-32.0); CREATININE 2.37 mg/dL (0.55-1.02); Calcium 8.4 mg/dL (8.5-10.1); Chloride 100 mmol/L (98-107); Estimated GFR 20.31 (mL/min/1.73m2); Glucose 100 mg/dL (70-100); Sodium 140 mmol/L (136-145)
[2018-07-26 09:21] LABS: Potassium 2.9 mmol/L (3.5-5.1)
== END 2018-07-26 02:23 ==
PROVIDERS: PCP Internal Medicine; Visit Provider Internal Medicine
DX: R79.89 Other specified abnormal findings of blood chemistry (principal)
CPT/HCPCS: 36415; 80048

== ENCOUNTER 2018-07-29 07:16 | Outpatient (CLI) | payer MEDICARE, BC, SELFPAY ==
[2018-07-29 07:52] LABS: POTASSIUM,URINE RANDOM 22 mmol/L; Sodium, Urine 15 mmol/L
[2018-07-29 08:52] LABS: Anion Gap 10.7 mmol/L (3-11); BUN 36 mg/dL (7-18); CO2 25.3 mmol/L (21.0-32.0); CREATININE 2.19 mg/dL (0.55-1.02); Calcium 8.8 mg/dL (8.5-10.1); Chloride 103 mmol/L (98-107); Estimated GFR 22.25 (mL/min/1.73m2); Glucose 102 mg/dL (70-100); Potassium 4.1 mmol/L (3.5-5.1); Sodium 139 mmol/L (136-145)
== END 2018-07-29 07:36 ==
PROVIDERS: PCP Internal Medicine; Visit Provider Internal Medicine
DX: E87.6 Hypokalemia (principal)
CPT/HCPCS: 36415; 80048; 82436; 84133; 84300

== ENCOUNTER → 2018-08-18 11:29 | Outpatient (BNVA) | payer MEDICARE, BC, SELFPAY | PROVIDERS: PCP Internal Medicine; Referring Provider Student in an Organized Health Care Education/Training Program; Visit Provider Student in an Organized Health Care Education/Training Program | DX: I50.9 Heart failure, unspecified (principal); I13.0 Hypertensive heart and chronic kidney disease with heart failure and stage 1 through stage 4 chronic kidney disease, or unspecified chronic kidney disease; I70.1 Atherosclerosis of renal artery; I71.4 Abdominal aortic aneurysm, without rupture; N18.9 Chronic kidney disease, unspecified | CPT/HCPCS: 99205; 99215 ==

== ENCOUNTER 2018-08-25 00:14 | Outpatient (CLI) | payer MEDICARE, BC, SELFPAY ==
--- NOTE | 2018-08-25 06:52 | MERGEMPI_ITS ---
*[facility]* [address] [place] [address] Myocardial Perfusion Imaging - SPECT Regadenoson Date of study: 08/25/2018 *PATIENT PRESENTATION* Height: 152.4cm (60in) Blood Pressure: Weight: 45.9kg (101lb) BSA: 1.39m^2 Referring physician: Vadim Joyce Ordering physician: Vadim Joyce Impressions: - Normal perfusion by Tc99m Sestamibi Imaging. - Abnormal contraction consistent with cardiomyopathy. Summary: 1. Myocardial perfusion imaging: No myocardial perfusion defects noted. 2. The left ventricular end-systolic volume is 72ml. The calculated left ventricular ejection fraction after stress: 36%. LV global systolic function is moderate to severely reduced. Diffuse left ventricular regional motion abnormalities. There is severe hypokinesis involving the inferior and anterolateral wall(s) of the left ventricle. 3. Stress ECG conclusions: The stress ECG is negative. Indication: I50.9, Appropriate Use Criteria: A (Appropriate). History: Patient's presenting symptoms: asymptomatic. REASON FOR VISIT: PATIENT WITH NEW ONSET SYSTOLIC HEART FAILURE IN THE SETTING OF ACCELERATED HYPERTENSION IN MARCH 2018. EJECTION FRACTION AT THAT TIME 35-40%. PATIENT HAS RECENTLY TAKEN CARVEDILOL. PAST MEDICAL HISTORY: CONGESTIVE HEART FAILURE, RENAL ARTERY STNOSIS, SUBCLINICAL HYPOTHYROIDISM, HYPERTENSION, CHRONIC KIDNEY DISEASE, ABDOMINAL AORTIC ANEURYSM. FAMILY HISTORY: NONE. SMOKING STATUS: 20 PACK YEAR SMOKING HISTORY, QUIT 10 YEARS AGO. EXERCISE: WALK 1-1.5 MILES 5X/WEEK. Risk factors: Hypertension. Dyslipidemia. Cholesterol: 189mg/dl. HDL: 58mg/dl. LDL: 123mg/dl. Triglycerides: 53mg/dl. ALLERGIES: LISINOPRIL. MEDICATIONS: AMLODIPINE 10MG, DAILY. ASPIRIN 81MG, DAILY. ATORVASTATIN 40MG, DAILY. CARVEDILOL 37.5MG, BID. CHOLECALCIFEROL 1,000U, DAILY. DIPHENHYDRAMINE HCL 50MG, PRN. FUROSEMIDE 20MG, Q48H. GABAPENTIN 800MG, HS. LEVOTHYROXINE 25MCG, DAILY. POTASSIUM CHLORIDE 10MEQ, DAILY. Imaging Technique: Protocol: Regadenoson. Acquisition: Gated SPECT; 1 day - rest/stress. The patient was imaged in the supine position. Attenuation correction used. Isotope administration: - Rest. Tc[99m]-sestamibi. Dose: 9.9mCi. Injection time: 09:00 AM. Injection to stress time: 00:45. - Stress. Tc[99m]-sestamibi. Dose: 28.5mCi. Injection time: 10:45 AM. 1-2 min before end of exercise Baseline ECG: SINUS RHYTHM. HEART RATE 69 BPM. Normal sinus rhythm. Stress protocol: +--------+--+ + + !Stage !HR!BP (mmHg) !Comments ! +--------+--+ + + !Baseline!69!166/80 (109)! ! +--------+--+ + + !1 min !88!170/80 (110)!Inject Regadenoson.! +--------+--+ + + !3 min !85!170/72 (105)! ! +--------+--+ + + !6 min !81!172/76 (108)! ! +--------+--+ + + * Stress results: The rate-pressure product for the peak heart rate and blood pressure was 28391fb Hg/min. Stress ECG: STRESS TEST ENDED IN 6MIN 2 SEC WHEN ALL SYMPTOMS OF REGADENOSON INJECTION SUBSIDED. APPROPRIATE HEART RATE AND BLOOD PRESSURE RESPONSE TO REGADENOSON INJECTION. OCCASIONAL PVC NOTED. NO ANGINA REPORTED. NO SIGNIFICANT ST SEGMENT CHANGES. The stress ECG is negative. Myocardial perfusion: Imaging information: gated. Image quality reduced due to diaphragmatic attenuation. The left ventricle is mildly dilated. No myocardial perfusion defects noted. Ventricular Function (Wall Motion): The left ventricular end-systolic volume is 72ml. The calculated left ventricular ejection fraction after stress: 36%. LV global systolic function is moderate to severely reduced. Diffuse left ventricular regional motion abnormalities. There is severe hypokinesis involving the inferior and anterolateral wall(s) of the left ventricle. Study data: Vadim Joyce MD supervised and was readily available during the procedure. This study was interpreted by [facility]. Study status: Routine. Consent: The risks, benefits, and alternatives to the procedure were explained to the patient and informed consent was obtained. Procedure: Initial setup. A baseline ECG was recorded. Surface ECG leads and manual cuff blood pressure measurements were monitored. Heart sounds: Normal. Lung sounds: Normal. Regadenoson stress test. Stress testing was performed, with regadenoson by intravenous bolus, for a total dose of 0.4mgover 10.00sec, followed by a 5ml saline flush. The infusion was terminated due to per protocol. Study completion: All catheters inserted during the procedure were removed. The patient tolerated the procedure well and was discharged from the lab. Discharge: The patient left the laboratory in stable condition. Birthdate: Patient birthdate: 1950. Sex: Gender: female. Study date: Study date: 08/25/2018. Study time: 00:01 AM. Signature Documentation: - The imaging portion of this study was interpreted by Nuclear Science Writer Vadim Joyce MD. - The imaging portion of this study was interpreted by Nuclear Radiologist Juan Rowe MD. - The Stress ECG portion of this study was interpreted by Vadim Joyce MD. Electronically signed by Vadim Joyce 08/25/2018 15:14
[2018-08-25] MEDS: Regadenoson 0.4 MG/5 ML SYR IVP (11:06)
== END 2018-08-25 00:34 ==
PROVIDERS: PCP Internal Medicine; Visit Provider Student in an Organized Health Care Education/Training Program
DX: I50.9 Heart failure, unspecified (principal); I42.9 Cardiomyopathy, unspecified; I10 Essential (primary) hypertension; E78.5 Hyperlipidemia, unspecified; E03.9 Hypothyroidism, unspecified; Z87.891 Personal history of nicotine dependence
CPT/HCPCS: 78452; 93016; 93018; 93017; J2785

== ENCOUNTER 2018-08-27 23:06 | Inpatient (IN) | payer MEDICARE, BC, SELFPAY ==
[2018-08-27] VITALS (13 sets, daily range): BP systolic 124–178; BP diastolic 79–107; PULSE 84–96; RESP 14–36; TEMP 36.6; O2SAT 59–94
--- NOTE | 2018-08-27 23:14 | ED.GENADUL_ITS ---
Discharge Plan Disposition Patient Disposition: [facility] INPATIENT Condition: Poor Discharge Details Chief Complaint: SOB Clinical Impression: Acute systolic CHF (congestive heart failure), CKD (chronic kidney disease), Flash pulmonary edema Primary Care Provider: Sanjuanita Lee ED Provider: Juan Mcqueen [place] Meds and New Rx's Prescriptions: No Action diphenhydramine HCl [Benadryl] 25 mg capsule 50 mg PO QHS PRNRF: 0 potassium chloride 10 mEq tablet extended release 20 meq PO DAILY RF: 0 atorvastatin 40 mg tablet 40 mg PO DAILY Qty: 90 RF: 3 aspirin [Aspir-81] 81 MG tablet,delayed release (DR/EC) 81 mg PO DAILY RF: 0 cholecalciferol (vitamin D3) [Vitamin D3] 1,000 UNIT capsule 1,000 unit PO DAILY RF: 0 gabapentin 800 mg tablet 800 mg PO HS Qty: 90 RF: 3 carvedilol 25 mg tablet 37.5 mg PO BID Qty: 90 RF: 5 levothyroxine 25 mcg tablet 25 mcg PO DAILY@0600 Qty: 90 RF: 3 furosemide 20 mg tablet 20 mg PO Q48H Qty: 10 RF: 0 amlodipine 10 mg Tablet 10 mg PO DAILY Qty: 30 RF: 0 Medical Decision Making Patient presenting in acute respiratory distress. She is hypoxic and hypertensive. Previously has responded to BiPAP and nitroglycerin. Likely related to hypertensive urgency with flash pulmonary edema. Patient started on BiPAP which immediately made her breathing much easier. IV is established. Laboratory studies and chest x-ray ordered. Nitroglycerin started to try to get her systolic pressure into the 130 - 140 range. Patient's EKG without acute ischemic changes. Chest x-ray shows evidence of pulmonary edema. Laboratory studies with negative troponin. BNP elevated as it has been in the past. Creatinine elevated but appears to be around her recent baseline. Electrolytes and CBC are fine. Patient doing better on BiPAP. Nitroglycerin drip started to get her systolic pressure into the 05/27/1939 range. Consider Lasix drip for diuresis. Case discussed with Dr. Sharpe who is here seeing the patient for admission. Medical Records Medical records reviewed: Yes I reviewed the patient's medical records. Lab Data Lab results reviewed: Yes I reviewed the patient's lab results. ECG Data Attestation: I personally reviewed and interpreted this ECG (s) as follows: Interpretation: EKG shows a sinus rhythm at 86. Normal axis and intervals. Some mild nonspecific ST changes but actually better than EKG from April which actually had T wave inversions. There is no acute ST elevation. HPI General Mode of arrival: wheelchair . Date/Time Provider Initiated Documentation: 08/27/18 23:09 . Limitations to Documentation: no limitations . Information obtained by: family and old records reviewed . HPI Narrative: Patient is brought into ED by her for evaluation of shortness of breath. Patient has had episodes where she gets acutely short of breath. She was doing well today until this evening. She started to feel short of breath. She took extra Lasix but continued to get worse. She arrives here in respiratory distress. She is not able to speak. She does deny pain. reports that in the past she has responded to the mask which helps her breathe. She is admitted and usually does well over a couple days and goes home. She is followed by cardiology here and nephrology at [facility]. She has known renal artery stenosis, cardiomyopathy, hypertension. Related Data Home Medications Medication Instructions Recorded Confirmed aspirin [Aspir-81] 81 mg PO DAILY tab-cap 04/19/13 08/18/18 cholecalciferol (vitamin D3) 1,000 unit PO DAILY 11/28/14 08/18/18 [Vitamin D3] atorvastatin 40 mg tablet 40 mg PO DAILY #90 tab 01/06/18 08/18/18 amlodipine 10 mg PO DAILY #30 tab 04/25/18 08/18/18 gabapentin 800 mg tablet 800 mg PO HS #90 tab-cap 06/08/18 08/18/18 carvedilol 25 mg tablet 37.5 mg PO BID #90 tab 06/22/18 08/18/18 levothyroxine 25 mcg tablet 25 mcg PO DAILY@0600 #90 tab 06/22/18 08/18/18 diphenhydramine 25 mg capsule 50 mg PO QHS PRN cap 08/18/18 08/18/18 potassium chloride ER 10 mEq 20 meq PO DAILY 08/18/18 08/18/18 tablet,extended release furosemide 20 mg tablet 20 mg PO Q48H #10 tab 08/23/18 Previous Rx's Medication Instructions Recorded atorvastatin 40 mg tablet 40 mg PO DAILY #90 tab 01/06/18 amlodipine 10 mg PO DAILY #30 tab 04/25/18 gabapentin 800 mg tablet 800 mg PO HS #90 tab-cap 06/08/18 carvedilol 25 mg tablet 37.5 mg PO BID #90 tab 06/22/18 levothyroxine 25 mcg tablet 25 mcg PO DAILY@0600 #90 tab 06/22/18 furosemide 20 mg tablet 20 mg PO Q48H #10 tab 08/23/18 Allergies Allergy/AdvReac Type Severity Reaction Status Date / Time lisinopril AdvReac Mild Rise in Verified 08/03/18 09:14 creatinine General BILLY: 2 Review of Systems Review of Systems Unable to obtain due to respiratory distress. [facility] Medical History CKD (chronic kidney disease) (Chronic) Congestive heart failure (Chronic) Renal artery stenosis (Chronic) High blood cholesterol (Chronic) Abdominal aortic aneurysm (AAA) without rupture (Chronic 01/04/16) Cardiomyopathy (Chronic) HTN (hypertension) (Chronic) Hepatitis B (Chronic 02/24/13) Surgical History Bilateral salpingectomy with oophorectomy (Chronic) Hysterectomy, Laproscopic (Chronic ~01/1984) Colonoscopy - MAC (Resolved 09/27/12) EGD W/ BS (Resolved 08/12/12) Social History Smoking/Tobacco Use Status: Former Tobacco Use Alcohol Intake: current Alcohol Intake frequency: holidays/special occasions only Drug use: Never Substance use type: does not use Foster care: No Household members: spouse Housing: house Number of Children: 2 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 Const: WDWN female in respiratory distress. HEENT: NC/AT. Normal facial exam. Eyes: Normal conjunctiva and sclera. Neck: Supple. Trachea midline. Lungs: Lungs with wet rhonchi throughout all carranza. Cor: RRR without murmur/gallop. Good radial pulses. GI: Soft. NT/ND. No guarding or rebound. Neuro: Awake and alert. CN grossly in tact. Good strength and no focal deficit. Ext: No C/C/E. No deformity or tenderness. Skin: Warm and dry without rash. Critical Care Time Critical Care Time: Yes Total Critical Care Time: 45 Attestation: respiratory distress/pulmonary edema
[2018-08-27 23:31] LABS: Abs Immature Grans 0.03 k/cumm (0.0-0.09); Absolute Basophil Count 0.09 k/cumm (0.0-0.2); Absolute Lymphocyte Count 1.46 k/cumm (1.2-3.4); Absolute Monocyte Count 0.91 k/cumm (0.11-0.7); Absolute Neutrophil Count 6.95 k/cumm (1.2-6.7); Basophils % 0.9; Eosinophils % 7.8; HCT 41.9 % (36.0-46.0); HGB 14.7 g/dL (12.0-15.5); Immature Grans % 0.3; Lymphocytes % 14.3; Mean Corp. HGB Concentration 35.1 g/dL (32.0-36.0); Mean Corpuscular Hemoglobin 30.8 pg (27.0-33.0); Mean Corpuscular Volume 87.7 fL (80-95); Mean Platelet Volume 10.7 fL (8.0-11.0); Monocytes % 8.9; Neutrophils % 67.8; Platelet Count 266 x1000/uL (130-400); RBC 4.78 m/cumm (4.00-5.20); RBC Distribution Width 13.6 % (11.7-14.6); White Blood Cell Count 10.24 k/cumm (4.4-10.8)
--- NOTE | 2018-08-27 23:35 | DI.RAD_ITS ---
SYMPTOM/DIAGNOSIS: SOB PORTABLE AP CHEST: The heart is enlarged. There are bilateral diffuse interstitial infiltrates. There may be small bilateral pleural effusions. The findings as described are consistent with CHF. Comparison with multiple previous films shows similar findings on multiple previous examinations. Recurrent CHF versus chronic CHF versus pulmonary fibrosis.
[2018-08-27 23:50] LABS: ALT 32 U/L (12-78); AST 25 U/L (15-37); Albumin 3.2 g/dL (3.4-5.0); Alkaline Phosphatase 92 U/L (46-116); Anion Gap 10.9 mmol/L (3-11); BUN 38 mg/dL (7-18); Bilirubin, Total 0.4 mg/dL (0.2-1.0); CO2 24.1 mmol/L (21.0-32.0); CREATININE 2.18 mg/dL (0.55-1.02); Calcium 8.6 mg/dL (8.5-10.1); Chloride 100 mmol/L (98-107); Estimated GFR 22.37 (mL/min/1.73m2); Glucose 226 mg/dL (70-100); Magnesium 2.4 mg/dL (1.8-2.4); NT-proBNP 12163 pg/mL; Potassium 4.2 mmol/L (3.5-5.1); Sodium 135 mmol/L (136-145); Total Protein 7.2 g/dL (6.4-8.2); Troponin I 0.02 ng/mL (0.00-0.06)
--- NOTE | 2018-08-27 23:51 | DI.VRAD_ITS ---
EXAM: XR Chest, 1 View EXAM DATE/TIME: 08/27/2018 11:17 PM CLINICAL HISTORY: 67 years old, female; Signs and symptoms; Shortness of breath TECHNIQUE: Imaging protocol: XR of the chest, 1 view. COMPARISON: SC XR PORTABLE CHEST AP 05/14/2018 10:34 PM FINDINGS: Lungs: Diffuse interstitial process. Pleural space: Unremarkable. No evidence of pneumothorax. Heart/Mediastinum: Unremarkable. Heart size within normal limits for technique. Bones/joints: Unremarkable. IMPRESSION: Pulmonary parenchymal changes could represent pulmonary edema or atypical infection. Dictated and Authenticated by: Quinten Hines MD. Ordering:KISHAN Martinez MD
[2018-08-28] VITALS (118 sets, daily range): BP systolic 116–184; BP diastolic 52–101; PULSE 64–94; RESP 8–24; TEMP 35.6–38.1; O2SAT 88–99
--- NOTE | 2018-08-28 00:24 | W.PM.HP.N ---
Date of service: 08/28/18 Time of Service: 00:24 Assessment and Plan (1) CHF (congestive heart failure): Current visit: Yes Status: Chronic Flash pulmonary edema, possibly on an ischemic basis. No evidence for ongoing ischemia by symptoms or EKG. Will continue BiPAP, diuresis and continue IV nitroglycerin. We will trend out troponins Reviewed advanced directives and patient and confirm wish for DNR status History of Present Illness Chief Complaint: Short of breath Narrative: Patient is a 67-year-old female with history of coronary artery disease, hypertension and renal artery stenosis. She had a stress test 2 days prior to admission, no report is available. She comes in with sudden onset of 4 hours ago of shortness of breath associated with chest heaviness. The chest heaviness lasted for an unspecified period of time. In the emergency room she was hypoxic and tachypneic with chest x-ray showing pulmonary edema. She was placed on BiPAP and nitroglycerin drip. At this point she says she feels substantially improved. She is admitted for further evaluation and management. She denies any recent change in medications Review of Systems Review of Systems All systems reviewed & are unremarkable except as noted in HPI and below PFSH Medical History CKD (chronic kidney disease) (Chronic) Congestive heart failure (Chronic) Renal artery stenosis (Chronic) High blood cholesterol (Chronic) Abdominal aortic aneurysm (AAA) without rupture (Chronic 01/04/16) Cardiomyopathy (Chronic) HTN (hypertension) (Chronic) Hepatitis B (Chronic 02/24/13) Surgical History Bilateral salpingectomy with oophorectomy (Chronic) Hysterectomy, Laproscopic (Chronic ~01/1984) Colonoscopy - MAC (Resolved 09/27/12) EGD W/ BS (Resolved 08/12/12) Family History Grandmother Essential hypertension Social History Smoking/Tobacco Use Status: Former Tobacco Use Alcohol Intake: current Alcohol Intake frequency: holidays/special occasions only Drug use: Never Substance use type: does not use Foster care: No Household members: spouse Housing: house Number of Children: 2 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 Current gender identity: female Drive intox or ride w/intox local 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5 mg PO BID #90 tab 06/22/18 08/18/18 Rx levothyroxine 25 mcg tablet 25 mcg PO DAILY@0600 #90 tab 06/22/18 08/18/18 Rx diphenhydramine 25 mg capsule 50 mg PO QHS PRN cap 08/18/18 08/18/18 History potassium chloride ER 10 mEq 20 meq PO DAILY 08/18/18 08/18/18 History tablet,extended release furosemide 20 mg tablet 20 mg PO Q48H #10 tab 08/23/18 Rx Allergies Allergy/AdvReac Type Severity Reaction Status Date / Time lisinopril AdvReac Mild Rise in Verified 08/03/18 09:14 creatinine Exam Narrative Exam Narrative: Blood pressure 179/89 rest respirations 14 O2 sat 91% on BiPAP. HEENT is unremarkable neck unable to establish jugular pulse lungs show rales x1/2 bilaterally. Heart is distant but regular rate and rhythm. Abdomen is soft nontender. Extremities without edema Results Labs : 08/27/18 23:24 08/27/18 23:24 Laboratory Results - last 24 hr 08/27/18 08/27/18 23:24 23:24 WBC 10.24 RBC 4.78 Hgb 14.7 Hct 41.9 MCV 87.7 MCH 30.8 MCHC 35.1 RDW 13.6 Plt Count 266 MPV 10.7 Immature Gran % 0.3 Neutrophils % 67.8 Lymphocytes % 14.3 Monocytes % 8.9 Eosinophils % 7.8 Basophils % 0.9 Absolute Neutrophils 6.95 H Absolute Lymphocytes 1.46 Absolute Monocytes 0.91 H Absolute Eosinophils 0.80 H Absolute Basophils 0.09 Sodium 135 L Potassium 4.2 Chloride 100 Carbon Dioxide 24.1 Anion Gap 10.9 BUN 38 H Creatinine 2.18 H Estimated GFR/1.73 m2 22.37 Glucose 226 H Calcium 8.6 Magnesium 2.4 Total Bilirubin 0.4 AST 25 ALT 32 Alkaline Phosphatase 92 Troponin I 0.02 NT-Pro-B Natriuret Pep 53678 H Total Protein 7.2 Albumin 3.2 L Last Vital Signs Temp 36.6 C 08/27/18 23:09 Pulse 85 08/27/18 23:45 Resp 14 08/27/18 23:50 BP 178/79 H 08/27/18 23:45 Pulse Ox 91 L 08/27/18 23:50
[2018-08-28] MEDS: Furosemide 40 MG/4 ML VIAL IVP (00:51)
[2018-08-28] MEDS: Gabapentin 800 MG TAB PO ×2 (01:11→21:48)
[2018-08-28] MEDS: Potassium Chloride 20 MEQ TABCR PO ×2 (01:12→08:37)
--- NOTE | 2018-08-28 01:17 | NUR.NOTE ---
Nursing Note: Pt up to bedside commode with assist. Pt had about 225 cc out but also had a large BM.
[2018-08-28] MEDS: Levothyroxine 25 MCG TAB PO (06:03)
[2018-08-28] MEDS: amLODIPine 10 MG TAB PO (06:03)
[2018-08-28 07:17] LABS: Troponin I 0.02 ng/mL (0.00-0.06)
--- NOTE | 2018-08-28 08:24 | W.PM.PROGNOT ---
Date of Service Date of service: 08/28/18 Time of Service: 08:26 Assessment and Plan (1) Hypertensive emergency: Current visit: No Status: Acute In setting of known B Renal Artery stenosis, [place] nephrology and vascular [place] [facility] The patient is better, had to be weaned off of nitroglycerin gtt (not helping per nursing) and transitioned to cardene. Extra dose of lasix is being given today. No longer requiring BiPAP but does need O2. Monitor strict I/O's, daily weights, Cr. Keep in ICU. (2) Acute on chronic systolic (congestive) heart failure: Current visit: Yes Status: Acute EF 36% on stress test. Near euvolemic now. I suspect that hypothyroidism may also be contributing to periodic flash pulmonary edema, but ultimately this is likely due to hypertension due to renal artery stenosis. s/p dose of lasix today - monitor I/O and daily weights. Monitor Cr. Attempt to wean o2. No evidence of ACS - EKG changes are likely related to acute CHF/hypertensive emergency. Troponins negative. (3) Atherosclerotic renal artery stenosis, bilateral: Current visit: Yes Status: Chronic Patient is intolerant of Clayton-i and ARB. Will have follow up with renal at [facility] [place] 08[place], who is working on coordinating care with vascular surgery. (4) Acute respiratory failure with hypoxia: Current visit: Yes Status: Acute Likely related to acute pulmonary edema in setting of hypertensive emergency. However, I am noting borderline temps (while wearing many blankets). I have asked the patient to provide us with a sputum sample - if purulent, perhaps there is an infectious component to her pulmonary disease as well. (5) CKD (chronic kidney disease): Current visit: No Status: Chronic As above - Cr stable. For follow up with nephrology on 08/30. (6) DVT prophylaxis: Current visit: No Status: Acute heparin SC (7) Discharge planning issues: Current visit: No Status: Inactive DNR/DNI Subjective Interval history since last seen: Denies dizziness, CP, SOB at rest (2L 93%), no nausea. Good appetite. Nitroglycerin gtt does not seem to be helping. UOP 500 overnight. States her cough has been productive of phlegm - she does not know what color it is. T max 38.0 this am while covered by many blankets. Tympanic temp 36.7. Exam Narrative Exam Narrative: General: very pleasant female, A&O3, no respiratory distress while wearing O2 at 2L by NC HEENT: EOMI, MMM Heart: RRR, no m/r/g Lungs: Diminished breath sounds at B bases GI: abdomen is soft, nontender, nondistended Exremities: no e/c/c BLE's Objective Objective Clinical Data: Abnormal lab results 08/27/18 08/27/18 Range/Units 23:24 23:24 Absolute Neutrophils 6.95 H (1.2-6.7) k/cumm Absolute Monocytes 0.91 H (0.11-0.7) k/cumm Absolute Eosinophils 0.80 H (0.0-0.7) k/cumm Sodium 135 L (136-145) mmol/L BUN 38 H (7-18) mg/dL Creatinine 2.18 H (0.55-1.02) mg/dL Glucose 226 H (70-100) mg/dL NT-Pro-B Natriuret Pep 31872 H ( - 299) pg/mL Albumin 3.2 L (3.4-5.0) g/dL Vital Signs Temperature 36.3 C L 08/28/18 05:45 Temperature Source Tympanic 08/28/18 05:45 Pulse 72 08/28/18 06:32 Pulse 75 08/28/18 06:32 Respiratory Rate 13 08/28/18 06:32 Respiratory Effort 08/28/18 05:45 Respiratory Depth Normal 08/28/18 05:45 Respiratory Pattern Normal 08/28/18 05:45 Blood Pressure 169/71 H 08/28/18 06:32 Blood Pressure Mean 95 08/28/18 06:32 Blood Pressure Position Supine 08/28/18 05:45 Pulse Oximetry 92 L 08/28/18 06:32 Oxygen Delivery Method Bi-pap 08/28/18 05:45 Oxygen Flow Rate 0 08/27/18 23:09 Fraction of Inspired Oxygen (FIO2) 40 08/28/18 02:19 Pain Level 0 08/28/18 05:45 Intake & Output 08/27/18 08/27/18 08/28/18 11:59 23:59 11:59 Intake Total 61.650 / 61.650 Output Total 675 / 675 Balance -613.350 / -613.350 Weight 45.813 kg 42.8 kg Intake: IV 36.650 / 36.650 Oral Output: Urine 675 / 675 Other: Urine Color Yellow Urine Appearance Clear Urine Odor Normal Laboratory Results WBC 10.24 k/cumm (4.4-10.8) 08/27/18 23:24 RBC 4.78 m/cumm (4.00-5.20) 08/27/18 23:24 Hgb 14.7 g/dL (12.0-15.5) 08/27/18 23:24 Hct 41.9 % (36.0-46.0) 08/27/18 23:24 MCV 87.7 fL (80-95) 08/27/18 23:24 MCH 30.8 pg (27.0-33.0) 08/27/18 23:24 MCHC 35.1 g/dL (32.0-36.0) 08/27/18 23:24 RDW 13.6 % (11.7-14.6) 08/27/18 23:24 Plt Count 266 x1000/uL (130-400) 08/27/18 23:24 MPV 10.7 fL (8.0-11.0) 08/27/18 23:24 Immature Gran % 0.3 08/27/18 23:24 Neutrophils % 67.8 08/27/18 23:24 Lymphocytes % 14.3 08/27/18 23:24 Monocytes % 8.9 08/27/18 23:24 Eosinophils % 7.8 08/27/18 23:24 Basophils % 0.9 08/27/18 23:24 Absolute Neutrophils 6.95 k/cumm (1.2-6.7) H 08/27/18 23:24 Absolute Lymphocytes 1.46 k/cumm (1.2-3.4) 08/27/18 23:24 Absolute Monocytes 0.91 k/cumm (0.11-0.7) H 08/27/18 23:24 Absolute Eosinophils 0.80 k/cumm (0.0-0.7) H 08/27/18 23:24 Absolute Basophils 0.09 k/cumm (0.0-0.2) 08/27/18 23:24 Sodium 135 mmol/L (136-145) L 08/27/18 23:24 Potassium 4.2 mmol/L (3.5-5.1) 08/27/18 23:24 Chloride 100 mmol/L (98-107) 08/27/18 23:24 Carbon Dioxide 24.1 mmol/L (21.0-32.0) 08/27/18 23:24 Anion Gap 10.9 mmol/L (3-11) 08/27/18 23:24 BUN 38 mg/dL (7-18) H 08/27/18 23:24 Creatinine 2.18 mg/dL (0.55-1.02) H 08/27/18 23:24 Estimated GFR/1.73 m2 22.37 (mL/min/1.73m2) 08/27/18 23:24 Glucose 226 mg/dL (70-100) H 08/27/18 23:24 Calcium 8.6 mg/dL (8.5-10.1) 08/27/18 23:24 Magnesium 2.4 mg/dL (1.8-2.4) 08/27/18 23:24 Total Bilirubin 0.4 mg/dL (0.2-1.0) 08/27/18 23:24 AST 25 U/L (15-37) 08/27/18 23:24 ALT 32 U/L (12-78) 08/27/18 23:24 Alkaline Phosphatase 92 U/L (46-116) 08/27/18 23:24 Troponin I 0.02 ng/mL (0.00-0.06) 08/28/18 06:35 NT-Pro-B Natriuret Pep 98507 pg/mL (-299) H 08/27/18 23:24 Total Protein 7.2 g/dL (6.4-8.2) 08/27/18 23:24 Albumin 3.2 g/dL (3.4-5.0) L 08/27/18 23:24 Objective Narrative Objective Narrative: EKG this am: NSR, HR 87; new/exacerbated ST depressions in V3, V4, V5.
[2018-08-28] MEDS: Atorvastatin 40 MG TAB PO (08:35)
[2018-08-28] MEDS: Carvedilol 25 MG TAB 37.5 MG PO ×2 (08:35→19:49)
[2018-08-28] MEDS: Aspirin E.C. 81 MG TABEC PO (08:35)
[2018-08-28] MEDS: Heparin 5,000 UNITS/ML VIAL 5000 UNITS SC ×2 (08:37→17:02)
[2018-08-28] MEDS: niCARdipine 25 MG in Normal Saline 240 ML 50 MG IV ×2 (09:23→18:35)
[2018-08-28 09:33] LABS: Anion Gap 12.2 mmol/L (3-11); BUN 39 mg/dL (7-18); CO2 20.8 mmol/L (21.0-32.0); CREATININE 2.17 mg/dL (0.55-1.02); Calcium 8.7 mg/dL (8.5-10.1); Chloride 104 mmol/L (98-107); Estimated GFR 22.48 (mL/min/1.73m2); Glucose 118 mg/dL (70-100); Magnesium 2.3 mg/dL (1.8-2.4); Potassium 3.8 mmol/L (3.5-5.1); Sodium 137 mmol/L (136-145)
--- NOTE | 2018-08-28 10:23 | PDOC.CMIN ---
- If Service Date Differs Date of service: 08/28/18 Time of Service: 10:23 Care Management Initial Assess REASON FOR HOSPITALIZATION:: Flash pulmonary edema, hypertenstion with a history of CHF, CKD, cardiomyopathy and HTN. PAST MEDICAL HISTORY/PAST SURGICAL HISTORY:: Renal arterial stenosis, high cholesterol, hypertension, hepatitis B, aortic aneurysm. PREVIOUS FUNCTIONAL STATUS/SOCIAL/FAMILY SUPPORTS:: Jami lives in her own home in [place], [place] with her spouse Rodolfo. She works full-time for a local [employer]. Her primary care is [facility] internal medicine. She follows up with nephrology at [facility]. She has no equipment at home she is independent with ADLs and transportation. CURRENT FUNCTIONAL STATUS:: Charlene makes good eye contact. She states that she wants to be discharged before Thursday for her nephrology appointment. She is being started on Nicardipine related to HTN in the setting of pulmonary edema. 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 PATIENT/FAMILY EDUCATION NEEDS:: Discharge education, limitations, follow-up plan of care, asked me 3 and self-management. ANTICIPATED BARRIERS TO DISCHARGE:: None identified. TRANSPORTATION:: Via private car with spouse at time of discharge. PLAN:: Charlene is being treated for flash pulmonary edema, and hypertension. She is receiving nicardipine to control her blood pressure. Anticipate she will be discharged home with no additional services. She has a follow-up scheduled nephrology at [facility] Thursday. CM to continue to provide support ongoing discharge planning and disposition.
--- NOTE | 2018-08-28 10:41 | INITIAL_ITS ---
- If Service Date Differs Date of service: 08/28/18 Time of Service: 10:23 Care Management Initial Assess REASON FOR HOSPITALIZATION:: Flash pulmonary edema, hypertenstion with a history of CHF, CKD, cardiomyopathy and HTN. PAST MEDICAL HISTORY/PAST SURGICAL HISTORY:: Renal arterial stenosis, high cholesterol, hypertension, hepatitis B, aortic aneurysm. PREVIOUS FUNCTIONAL STATUS/SOCIAL/FAMILY SUPPORTS:: Jami lives in her own home in [place], [place] with her spouse Rodolfo. She works full-time for a local [employer]. Her primary care is [facility] internal medicine. She follows up with nephrology at [facility]. She has no equipment at home she is independent with ADLs and transportation. CURRENT FUNCTIONAL STATUS:: Charlene makes good eye contact. She states that she wants to be discharged before Thursday for her nephrology appointment. She is being started on Nicardipine related to HTN in the setting of pulmonary edema. 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 PATIENT/FAMILY EDUCATION NEEDS:: Discharge education, limitations, follow-up plan of care, asked me 3 and self-management. ANTICIPATED BARRIERS TO DISCHARGE:: None identified. TRANSPORTATION:: Via private car with spouse at time of discharge. PLAN:: Charlene is being treated for flash pulmonary edema, and hypertension. She is receiving nicardipine to control her blood pressure. Anticipate she will be discharged home with no additional services. She has a follow-up scheduled nephrology at [facility] Thursday. CM to continue to provide support ongoing discharge planning and disposition.
--- NOTE | 2018-08-28 10:57 | PHARADMIT ---
Admission Pharmacy Clinical Review CHF Code Status DNR/DNI Current Weight 42.8 kg Renally Cleared and Narrow Therapeutic Index Meds Crcl ~16.5 mL/min gabapentin: 200-700 mg once a day for crcl 15-29 mL/min QTc Value / Action Taken QTc 440 BP Control, Fever BP 149/56 afebrile Electrolytes reviewed within normal limits DVT Prophylaxis heparin Opiate Usage / Scheduled Bowel Regimen Ordered no/no Plt/SCr for Heparin / Enoxaparin plt 266 SCr 2.17 INR for Warfarin n/a H/H stable, WBC/Bands h/h 14.7/41.9 wbc 10.24 Antibiotic appropriateness none Cultures and Sensitivities none Surgical ABX d/c within 24 hr n/a DM control / Insulin Dosing BG 118 none Heart Failure (Check EF%) (ABBY's, B-Block, Diuretics) carvedilol, IV to PO Switch n/a Home Meds Reviewed diphenhydramine may enhance the ulcerogenic effect of potassium chloride Home Meds Not Ordered amlodipine, cholecalciferol, furosemide Comments nicardipine drip (bp was up to 181/72 this morning)
[2018-08-28] MEDS: Furosemide 20 MG/2 ML VIAL IVP (12:20)
[2018-08-28] MEDS: Normal Saline Flush 10 ML SYR IVP (12:20)
[2018-08-28] MEDS: niCARdipine 25 MG in Normal Saline 240 ML 5 MG IV (13:17)
[2018-08-29] VITALS (66 sets, daily range): BP systolic 136–166; BP diastolic 57–77; PULSE 68–83; RESP 10–22; TEMP 36.1–37.7; O2SAT 89–95
[2018-08-29] MEDS: Heparin 5,000 UNITS/ML VIAL 5000 UNITS SC ×3 (01:03→15:48)
[2018-08-29] MEDS: Normal Saline Flush 10 ML SYR IVP ×2 (01:03→08:36)
[2018-08-29] MEDS: Levothyroxine 75 MCG TAB 37.5 MCG PO (06:30)
[2018-08-29 06:43] LABS: Abs Immature Grans 0.01 k/cumm (0.0-0.09); Absolute Basophil Count 0.06 k/cumm (0.0-0.2); Absolute Eosinophil Count 0.55 k/cumm (0.0-0.7); Absolute Lymphocyte Count 1.82 k/cumm (1.2-3.4); Absolute Neutrophil Count 3.37 k/cumm (1.2-6.7); Basophils % 0.9; Eosinophils % 8.3; HCT 38.9 % (36.0-46.0); HGB 13.4 g/dL (12.0-15.5); Immature Grans % 0.2; Lymphocytes % 27.5; Mean Corp. HGB Concentration 34.4 g/dL (32.0-36.0); Mean Corpuscular Hemoglobin 30.4 pg (27.0-33.0); Mean Corpuscular Volume 88.2 fL (80-95); Mean Platelet Volume 10.5 fL (8.0-11.0); Monocytes % 12.1; Platelet Count 252 x1000/uL (130-400); RBC 4.41 m/cumm (4.00-5.20); RBC Distribution Width 13.4 % (11.7-14.6); White Blood Cell Count 6.61 k/cumm (4.4-10.8)
[2018-08-29 07:06] LABS: BUN 27 mg/dL (7-18); CREATININE 1.95 mg/dL (0.55-1.02); Calcium 8.4 mg/dL (8.5-10.1); Chloride 106 mmol/L (98-107); Estimated GFR 25.44 (mL/min/1.73m2); Glucose 104 mg/dL (70-100); Magnesium 1.9 mg/dL (1.8-2.4); Potassium 3.3 mmol/L (3.5-5.1); Sodium 140 mmol/L (136-145)
--- NOTE | 2018-08-29 07:06 | PDOC.CMPRO ---
Care Management Progress Note S/O: Charlene is quite pleasant in interaction when CM meets with her and shares no concerns regarding her care or discharge plan. CM met with Charlene and her , Rodolfo again later in the day and reviewed process of transfer and why this transfer is logical. Both Rodolfo and Charlene shared their appreciation for her care and were agreeable to the plan and felt well informed. Both shared great sentiments of satisfaction with Dr. Baugh. Charlene reported no concerns about transporting in an Ambulance. CM continues to follow. A: 67 year old female admitted to [facility] 08/28/18 with CHF P: Charlene will be transferred to [facility] as her blood pressure has not stabilized and she had a pre-scheduled follow-up with nephrology at [facility] for tomorrow. She will transport via [facility].
[2018-08-29] MEDS: Carvedilol 25 MG TAB 37.5 MG PO (08:32)
[2018-08-29] MEDS: Potassium Chloride 20 MEQ TABCR PO ×2 (08:34→10:23)
[2018-08-29] MEDS: Isosorbide Mononitrate 30 MG TABCR PO (08:35)
[2018-08-29] MEDS: Aspirin E.C. 81 MG TABEC PO (08:35)
[2018-08-29] MEDS: amLODIPine 10 MG TAB PO (08:35)
[2018-08-29] MEDS: Atorvastatin 40 MG TAB PO (08:35)
[2018-08-29] MEDS: Furosemide 40 MG/4 ML VIAL IVP (08:36)
[2018-08-29] MEDS: niCARdipine 25 MG in Normal Saline 240 ML IV (09:30)
--- NOTE | 2018-08-29 16:22 | W.PM.DS.N ---
Date of service: 08/29/18 Time of Service: 16:22 DS: Diagnosis Discharge Diagnosis (1) Hypertensive emergency: Status: Acute (2) Acute on chronic systolic (congestive) heart failure: Status: Acute (3) Atherosclerotic renal artery stenosis, bilateral: Status: Chronic (4) Acute respiratory failure with hypoxia: Status: Acute (5) CKD (chronic kidney disease): Status: Chronic (6) Hypoxia: Status: Acute Discharge Plan Disposition Patient Disposition: [facility] Condition: Fair Discharge Details Chief Complaint: SOB Reason For Visit: CHF Admit Date/Time: 08/28/18 00:36 Admit Provider: Regan Sharpe Attending Provider: Regan Sharpe Primary Care Provider: Sanjuanita Lee ED Provider: Juan Mcqueen [facility] Hospital Course Hospital Course: Ms Harmon is a 67 year old female with PMHx of Bilateral renal artery stenosis, as well as three prior episodes of hypertensive emergency manifesting as acute on chronic systolic CHF with EF of 35-40% causing respiratory failure and requiring BiPAP, who was admitted to [facility] on 08/28/18 for yet another episode of acute/flash pulmonary edema causing acute hypoxic respiratory failure in setting of a hypertensive crisis with BP's up to 184/84. She was placed on BiPAP, diuresed and placed on nitroglycerin gtt. We were asked to admit the patient for further care. She was admitted to the ICU. No significant clinical effect was noted from nitroglycerin gtt, so the patient was then switched to nicardipine gtt in ICU. We were able to wean off her BiPAP by am of 08/28/18. Diuresis was continued, however because the patient is no longer on ARB therapy (this is being avoided due to several episodes of GAEL), and effective diuresis has been challenging. She was transitioned to lasix gtt. An attempt to wean of nicardipine drip this morning resulted in immediate increase in BP's. I discussed the case with Aly Cline of vascular surgery at [facility] where she was already followed as outpatient in consideration of renal artery stents as well as with Dr Hoffmann of medicine service. Dr Cline feels that the renal artery stents should in this case be placed on in-patient basis. The patient was accepted in transfer to [facility] under the care of Dr Hoffmann. It needs to be noted that the patient has had several borderline fevers recorded, but no clinical evidence of active infection. She is not on antibiotics at this time. Finally, she does have lateral ST segment depressions - but no evidence of ACS by troponins and a negative nuclear stress test on 08/25/18. We appreciate the assistance of our [facility] colleagues and wish the patient well. Transfer summary, care for the patient and transfer process took greater than 60 minutes to complete. Home Meds and New Rx's Prescriptions: New acetaminophen [Tylenol] 325 mg Tablet 650 mg PO Q6H PRN PRNQty: 0 RF: 0 levothyroxine 75 mcg Tablet 37.5 mcg PO DAILY@0600 Qty: 0 RF: 0 isosorbide mononitrate 30 mg Tablet Extended Release 24 Hr 30 mg PO DAILY Qty: 0 RF: 0 potassium chloride [Klor-Con M20] 20 mEq Tablet,Er Particles/Crystals 40 meq PO BID Qty: 0 RF: 0 Continued diphenhydramine HCl [Benadryl] 25 mg capsule 50 mg PO QHS PRNRF: 0 atorvastatin 40 mg tablet 40 mg PO DAILY Qty: 90 RF: 3 aspirin [Aspir-81] 81 MG tablet,delayed release (DR/EC) 81 mg PO DAILY RF: 0 cholecalciferol (vitamin D3) [Vitamin D3] 1,000 UNIT capsule 1,000 unit PO DAILY RF: 0 gabapentin 800 mg tablet 800 mg PO HS Qty: 90 RF: 3 carvedilol 25 mg tablet 37.5 mg PO BID Qty: 90 RF: 5 Discontinued potassium chloride 10 mEq tablet extended release 20 meq PO DAILY RF: 0 levothyroxine 25 mcg tablet 25 mcg PO DAILY@0600 Qty: 90 RF: 3 furosemide 20 mg tablet 20 mg PO Q48H Qty: 10 RF: 0 amlodipine 10 mg Tablet 10 mg PO DAILY Qty: 30 RF: 0 Discharge Instructions Activity:: bedrest Diet:: Low Sodium Discharge Orders Discharge Orders: Discharge Order (Routine); Ordered 08/29/18 Ordered By: Akua Baugh Exam Narrative Exam Narrative: General: very pleasant female, A&O3, no respiratory distress while wearing O2 at 2L by NC HEENT: EOMI, MMM Heart: RRR, no m/r/g Lungs: crackles 1/2 up B lungs GI: abdomen is soft, nontender, nondistended Exremities: no e/c/c BLE's DS: Data Vitals/I&O Vitals and I&O: Vital Signs Temperature 37.4 C 08/29/18 12:41 Temperature Source Temporal Artery Scan 08/29/18 12:41 Pulse 80 08/29/18 14:00 Pulse 81 08/29/18 14:00 Respiratory Rate 16 08/29/18 14:00 Respiratory Effort 08/29/18 12:41 Respiratory Depth Normal 08/29/18 12:41 Respiratory Pattern Normal 08/29/18 12:41 Blood Pressure 151/72 H 08/29/18 14:00 Blood Pressure Mean 89 08/29/18 14:00 Blood Pressure Position Supine 08/29/18 12:41 Pulse Oximetry 92 L 08/29/18 14:00 Oxygen Delivery Method Nasal Cannula 08/29/18 12:41 Oxygen Flow Rate 1 08/29/18 12:41 Fraction of Inspired Oxygen (FIO2) 40 08/28/18 08:00 Pain Level 0 08/29/18 08:17 Intake & Output 08/28/18 08/29/18 08/29/18 23:59 11:59 23:59 Intake Total 930.083 / 1472.475 591.667 / 1091.667 500 / 1091.667 Output Total 1150 / 1825 850 / 1425 575 / 1425 Balance -219.917 / -352.525 -258.333 / -333.333 -75 / -333.333 Weight 47 kg Intake: IV 290.083 / 437.475 171.667 / 171.667 Oral 640 / 1035 420 / 920 500 / 920 Output: Urine 1150 / 1825 850 / 1425 575 / 1425 Other: Urine Color Yellow Yellow Yellow Urine Appearance Clear Clear Clear Urine Odor Normal None None Stool Size Small Stool Characteristics Soft Formed Voiding Methods Bedside Commode Bedside Commode Bedside Commode Completed studies during hospitalization [Text1]: CXR 08/27/18: The heart is enlarged. There are bilateral diffuse interstitial infiltrates. There may be small bilateral pleural effusions. The findings as described are consistent with CHF. Comparison with multiple previous films shows similar findings on multiple previous examinations. Recurrent CHF versus chronic CHF versus pulmonary fibrosis. Labs on day of discharge: Labs from last 24 hours 08/29/18 08/29/18 06:30 06:30 WBC 6.61 RBC 4.41 Hgb 13.4 Hct 38.9 MCV 88.2 MCH 30.4 MCHC 34.4 RDW 13.4 Plt Count 252 MPV 10.5 Immature Gran % 0.2 Neutrophils % 51.0 Lymphocytes % 27.5 Monocytes % 12.1 Eosinophils % 8.3 Basophils % 0.9 Absolute Neutrophils 3.37 Absolute Lymphocytes 1.82 Absolute Monocytes 0.80 H Absolute Eosinophils 0.55 Absolute Basophils 0.06 Sodium 140 Potassium 3.3 L Chloride 106 Carbon Dioxide 24.0 Anion Gap 10.0 BUN 27 H D Creatinine 1.95 H Estimated GFR/1.73 m2 25.44 Glucose 104 H Calcium 8.4 L Magnesium 1.9 PFSH Medical History CKD (chronic kidney disease) (Chronic) Congestive heart failure (Chronic) Renal artery stenosis (Chronic) High blood cholesterol (Chronic) Abdominal aortic aneurysm (AAA) without rupture (Chronic 01/04/16) Cardiomyopathy (Chronic) HTN (hypertension) (Chronic) Hepatitis B (Chronic 02/24/13) Surgical History Bilateral salpingectomy with oophorectomy (Chronic) Hysterectomy, Laproscopic (Chronic ~01/1984) Colonoscopy - MAC (Resolved 09/27/12) EGD W/ BS (Resolved 08/12/12) Family History Grandmother Essential hypertension Social History Smoking/Tobacco Use Status: Former Tobacco Use Alcohol Intake: current Alcohol Intake frequency: holidays/special occasions only Drug use: Never Substance use type: does not use Foster care: No Household members: spouse Housing: house Number of Children: 2 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
--- NOTE | 2018-08-29 16:27 | DSE_ITS ---
Date of service: 08/29/18 Time of Service: 16:22 DS: Diagnosis Discharge Diagnosis (1) Hypertensive emergency: Status: Acute (2) Acute on chronic systolic (congestive) heart failure: Status: Acute (3) Atherosclerotic renal artery stenosis, bilateral: Status: Chronic (4) Acute respiratory failure with hypoxia: Status: Acute (5) CKD (chronic kidney disease): Status: Chronic (6) Hypoxia: Status: Acute Discharge Plan Disposition Patient Disposition: [facility] Condition: Fair Discharge Details Chief Complaint: SOB Reason For Visit: CHF Admit Date/Time: 08/28/18 00:36 Admit Provider: Regan Sharpe Attending Provider: Regan Sharpe Primary Care Provider: Sanjuanita Lee ED Provider: Juan Mcqueen [facility] Hospital Course Hospital Course: Ms Harmon is a 67 year old female with PMHx of Bilateral renal artery stenosis, as well as three prior episodes of hypertensive emergency manifesting as acute on chronic systolic CHF with EF of 35-40% causing respiratory failure and requiring BiPAP, who was admitted to [facility] on 08/28/18 for yet another episode of acute/flash pulmonary edema causing acute hypoxic respiratory failure in setting of a hypertensive crisis with BP's up to 184/84. She was placed on BiPAP, diuresed and placed on nitroglycerin gtt. We were asked to admit the patient for further care. She was admitted to the ICU. No significant clinical effect was noted from nitroglycerin gtt, so the patient was then switched to nicardipine gtt in ICU. We were able to wean off her BiPAP by am of 08/28/18. Diuresis was continued, however because the patient is no longer on ARB therapy (this is being avoided due to several episodes of GAEL), and effective diuresis has been challenging. She was transitioned to lasix gtt. An attempt to wean of nicardipine drip this morning resulted in immediate increase in BP's. I discussed the case with Aly Cline of vascular surgery at [facility] where she was already followed as outpatient in consideration of renal artery stents as well as with Dr Hoffmann of medicine service. Dr Cline feels that the renal artery stents should in this case be placed on in-patient basis. The patient was accepted in transfer to [facility] under the care of Dr Hoffmann. It needs to be noted that the patient has had several borderline fevers recorded, but no clinical evidence of active infection. She is not on antibiotics at this time. Finally, she does have lateral ST segment depressions - but no evidence of ACS by troponins and a negative nuclear stress test on 08/25/18. We appreciate the assistance of our [facility] colleagues and wish the patient well. Transfer summary, care for the patient and transfer process took greater than 60 minutes to complete. Home Meds and New Rx's Prescriptions: New acetaminophen [Tylenol] 325 mg Tablet 650 mg PO Q6H PRN PRNQty: 0 RF: 0 levothyroxine 75 mcg Tablet 37.5 mcg PO DAILY@0600 Qty: 0 RF: 0 isosorbide mononitrate 30 mg Tablet Extended Release 24 Hr 30 mg PO DAILY Qty: 0 RF: 0 potassium chloride [Klor-Con M20] 20 mEq Tablet,Er Particles/Crystals 40 meq PO BID Qty: 0 RF: 0 Continued diphenhydramine HCl [Benadryl] 25 mg capsule 50 mg PO QHS PRNRF: 0 atorvastatin 40 mg tablet 40 mg PO DAILY Qty: 90 RF: 3 aspirin [Aspir-81] 81 MG tablet,delayed release (DR/EC) 81 mg PO DAILY RF: 0 cholecalciferol (vitamin D3) [Vitamin D3] 1,000 UNIT capsule 1,000 unit PO DAILY RF: 0 gabapentin 800 mg tablet 800 mg PO HS Qty: 90 RF: 3 carvedilol 25 mg tablet 37.5 mg PO BID Qty: 90 RF: 5 Discontinued potassium chloride 10 mEq tablet extended release 20 meq PO DAILY RF: 0 levothyroxine 25 mcg tablet 25 mcg PO DAILY@0600 Qty: 90 RF: 3 furosemide 20 mg tablet 20 mg PO Q48H Qty: 10 RF: 0 amlodipine 10 mg Tablet 10 mg PO DAILY Qty: 30 RF: 0 Discharge Instructions Activity:: bedrest Diet:: Low Sodium Discharge Orders Discharge Orders: Discharge Order (Routine); Ordered 08/29/18 Ordered By: Akua Baugh Exam Narrative Exam Narrative: General: very pleasant female, A&O3, no respiratory distress while wearing O2 at 2L by NC HEENT: EOMI, MMM Heart: RRR, no m/r/g Lungs: crackles 1/2 up B lungs GI: abdomen is soft, nontender, nondistended Exremities: no e/c/c BLE's DS: Data Vitals/I&O Vitals and I&O: Vital Signs Temperature 37.4 C 08/29/18 12:41 Temperature Source Temporal Artery Scan 08/29/18 12:41 Pulse 80 08/29/18 14:00 Pulse 81 08/29/18 14:00 Respiratory Rate 16 08/29/18 14:00 Respiratory Effort 08/29/18 12:41 Respiratory Depth Normal 08/29/18 12:41 Respiratory Pattern Normal 08/29/18 12:41 Blood Pressure 151/72 H 08/29/18 14:00 Blood Pressure Mean 89 08/29/18 14:00 Blood Pressure Position Supine 08/29/18 12:41 Pulse Oximetry 92 L 08/29/18 14:00 Oxygen Delivery Method Nasal Cannula 08/29/18 12:41 Oxygen Flow Rate 1 08/29/18 12:41 Fraction of Inspired Oxygen (FIO2) 40 08/28/18 08:00 Pain Level 0 08/29/18 08:17 Intake & Output 08/28/18 08/29/18 08/29/18 23:59 11:59 23:59 Intake Total 930.083 / 1472.475 591.667 / 1091.667 500 / 1091.667 Output Total 1150 / 1825 850 / 1425 575 / 1425 Balance -219.917 / -352.525 -258.333 / -333.333 -75 / -333.333 Weight 47 kg Intake: IV 290.083 / 437.475 171.667 / 171.667 Oral 640 / 1035 420 / 920 500 / 920 Output: Urine 1150 / 1825 850 / 1425 575 / 1425 Other: Urine Color Yellow Yellow Yellow Urine Appearance Clear Clear Clear Urine Odor Normal None None Stool Size Small Stool Characteristics Soft Formed Voiding Methods Bedside Commode Bedside Commode Bedside Commode Completed studies during hospitalization [Text1]: CXR 08/27/18: The heart is enlarged. There are bilateral diffuse interstitial infiltrates. There may be small bilateral pleural effusions. The findings as described are consistent with CHF. Comparison with multiple previous films shows similar findings on multiple previous examinations. Recurrent CHF versus chronic CHF versus pulmonary fibrosis. Labs on day of discharge: Labs from last 24 hours 08/29/18 08/29/18 06:30 06:30 WBC 6.61 RBC 4.41 Hgb 13.4 Hct 38.9 MCV 88.2 MCH 30.4 MCHC 34.4 RDW 13.4 Plt Count 252 MPV 10.5 Immature Gran % 0.2 Neutrophils % 51.0 Lymphocytes % 27.5 Monocytes % 12.1 Eosinophils % 8.3 Basophils % 0.9 Absolute Neutrophils 3.37 Absolute Lymphocytes 1.82 Absolute Monocytes 0.80 H Absolute Eosinophils 0.55 Absolute Basophils 0.06 Sodium 140 Potassium 3.3 L Chloride 106 Carbon Dioxide 24.0 Anion Gap 10.0 BUN 27 H D Creatinine 1.95 H Estimated GFR/1.73 m2 25.44 Glucose 104 H Calcium 8.4 L Magnesium 1.9 PFSH Medical History CKD (chronic kidney disease) (Chronic) Congestive heart failure (Chronic) Renal artery stenosis (Chronic) High blood cholesterol (Chronic) Abdominal aortic aneurysm (AAA) without rupture (Chronic 01/04/16) Cardiomyopathy (Chronic) HTN (hypertension) (Chronic) Hepatitis B (Chronic 02/24/13) Surgical History Bilateral salpingectomy with oophorectomy (Chronic) Hysterectomy, Laproscopic (Chronic ~01/1984) Colonoscopy - MAC (Resolved 09/27/12) EGD W/ BS (Resolved 08/12/12) Family History Grandmother Essential hypertension Social History Smoking/Tobacco Use Status: Former Tobacco Use Alcohol Intake: current Alcohol Intake frequency: holidays/special occasions only Drug use: Never Substance use type: does not use Foster care: No Household members: spouse Housing: house Number of Children: 2 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
== END 2018-08-29 17:00 | disposition short-term general hospital (02) | DRG 304 ==
LOC: ER 08-28 00:37 → ICU 08-28 01:52
PROVIDERS: Admitting Provider General Practice; Emergency Provider Emergency Medicine; PCP Internal Medicine; Visit Provider Internal Medicine
DX: I16.1 Hypertensive emergency (principal); I50.23 Acute on chronic systolic (congestive) heart failure; J96.01 Acute respiratory failure with hypoxia; I42.9 Cardiomyopathy, unspecified; I15.0 Renovascular hypertension; I70.1 Atherosclerosis of renal artery; I13.0 Hypertensive heart and chronic kidney disease with heart failure and stage 1 through stage 4 chronic kidney disease, or unspecified chronic kidney disease; N18.9 Chronic kidney disease, unspecified; E03.9 Hypothyroidism, unspecified; E78.5 Hyperlipidemia, unspecified; R06.82 Tachypnea, not elsewhere classified; Z66 Do not resuscitate; Z87.891 Personal history of nicotine dependence
CPT/HCPCS: 36415; 80048; 80053; 96365; 96366; 99222; 99232; 99239; 99291; 71045; 83735; 83880; 84443; 84484; 85025; J1644; J1940; J1941; J3490

== ENCOUNTER 2018-09-27 13:10 | Outpatient (REF) | payer MEDICARE, BC, SELFPAY ==
[2018-09-27 14:09] LABS: HGB 12.9 g/dL (12.0-15.5); Mean Corp. HGB Concentration 33.9 g/dL (32.0-36.0); Mean Corpuscular Hemoglobin 30.9 pg (27.0-33.0); Mean Corpuscular Volume 91.1 fL (80-95); Mean Platelet Volume 11.1 fL (8.0-11.0); Platelet Count 344 x1000/uL (130-400); RBC 4.17 m/cumm (4.00-5.20); RBC Distribution Width 14.7 % (11.7-14.6); White Blood Cell Count 7.73 k/cumm (4.4-10.8)
[2018-09-27 15:13] LABS: Anion Gap 10.9 mmol/L (3-11); BUN 47 mg/dL (7-18); CO2 25.1 mmol/L (21.0-32.0); CREATININE 2.39 mg/dL (0.55-1.02); Calcium 9.7 mg/dL (8.5-10.1); Chloride 97 mmol/L (98-107); Estimated GFR 20.11 (mL/min/1.73m2); Glucose 90 mg/dL (70-100); Potassium 4.3 mmol/L (3.5-5.1); Sodium 133 mmol/L (136-145)
== END 2018-09-27 13:30 ==
LOC: LBN 13:10
PROVIDERS: PCP Internal Medicine; Visit Provider Surgery Vascular Surgery
DX: N18.9 Chronic kidney disease, unspecified (principal); B17.9 Acute viral hepatitis, unspecified; Z95.828 Presence of other vascular implants and grafts
CPT/HCPCS: 80048; 85027

== ENCOUNTER 2018-10-01 03:04 | Outpatient (CLI) | payer MEDICARE, BC, SELFPAY ==
[2018-10-01 14:02] LABS: Anion Gap 11.5 mmol/L (3-11); BUN 50 mg/dL (7-18); CO2 25.5 mmol/L (21.0-32.0); CREATININE 2.85 mg/dL (0.55-1.02); Calcium 9.4 mg/dL (8.5-10.1); Chloride 95 mmol/L (98-107); Estimated GFR 16.42 (mL/min/1.73m2); Glucose 170 mg/dL (70-100); Potassium 4.2 mmol/L (3.5-5.1); Sodium 132 mmol/L (136-145)
== END 2018-10-01 03:24 ==
PROVIDERS: PCP Internal Medicine; Visit Provider Internal Medicine
DX: I10 Essential (primary) hypertension (principal)
CPT/HCPCS: 36415; 80048

== ENCOUNTER 2018-11-10 23:31 | Inpatient (IN) | payer MEDICARE, BC, SELFPAY ==
[2018-11-10] VITALS (7 sets, daily range): BP systolic 177–180; BP diastolic 79–85; PULSE 83–91; RESP 14–22; TEMP 36.5; O2SAT 64–96
--- NOTE | 2018-11-10 23:42 | NUR.NOTE ---
Nursing Note: Placed on bipap small mask FiO2 at 30%. Peep of 5 Respiratory therapy has been paged.
--- NOTE | 2018-11-10 23:44 | ED.GENADUL_ITS ---
Discharge Plan Disposition Patient Disposition: [facility] INPATIENT Condition: Stable Discharge Details Chief Complaint: SOB Clinical Impression: Hypertensive emergency, Pulmonary edema Primary Care Provider: Sanjuanita Lee ED Provider: Brent Lang Home Meds and New Rx's Prescriptions: No Action gabapentin 100 mg capsule 200 mg PO HS RF: 0 levothyroxine 25 mcg capsule 25 mcg PO DAILY RF: 0 aspirin [Aspir-81] 81 MG tablet,delayed release (DR/EC) 81 mg PO DAILY RF: 0 labetalol 300 mg tablet 300 mg PO BID RF: 0 amlodipine 10 mg tablet 10 mg PO DAILY RF: 0 clonidine HCl 0.1 mg tablet 0.1 mg PO PRN RF: 0 atorvastatin 20 mg tablet 20 mg PO QHS RF: 0 isosorbide mononitrate 30 mg tablet extended release 24 hr 90 mg PO DAILY RF: 0 acetaminophen [Tylenol] 325 mg Tablet 650 mg PO Q6H PRN PRNQty: 0 RF: 0 Medical Decision Making 68 yo female with pmhx of ckd, HFpEF (EF 54% on TTE done at [facility] [place]), bilateral renal artery stenosis s/p right renal artery bypass on 09/07/18, htn, hld, who comes in with chief complaint of acute onset shortness of breath. Her provides most of the history as she can only speak in 1-2 word sentences. She has had multiple epsidoes of flash pulmonary edema and was admitted here in August then transferred a few days later to [facility] [place] and had the bypass of the renal artery done. She was doing well, had an admission at [facility] [place] in September for orthostasis per records and saw her [facility]er helper induction and vascular surgeon yesterday. They noted that her u/s of her bypass was patent without stenosis, but that her creatinine was increased to 2.7 from 2.4 in September and was felt to be due to fluctuations in her BP. Tonight she had the onset of sudden shortness of breath similar to her prior episodes. She denies chest pain or pressure, no fevers. She is using accessory muscles to breath, has diffuse crackles bilaterally on exam and on bedside u/s has diffuse b lines in all lung carranza. I suspect she has flash pulmonary edema again, will place on bipap and also obtain lab work and ecg. Will start nitro drip given her presentation and being hypertensive and also give lasix. Pt noted to be dnr/dni in chart, when I asked her she states she would want to be intubated and have compressions done if she were to stop breathing or have cardiac arrest. pt doing better on bipap and is speaking in 4-5 word sentences now and work of breathing significantly improved. AWaiting labs labs show no significant acute pathology, probnp elevated, creatiine 2.6. She remains hypertensive despite nitro drip, nursing titrating up. Spoke with Dr. Hunter who accepts for admission to [facility] for continued care and management Differential Diagnosis chf, htn emergency, pulmonary edema Medical Records Medical records reviewed: Yes I reviewed the patient's medical records. Imaging Data Radiologic Study: Attestation: I personally reviewed and interpreted this imaging study as follows: Imaging: X-Ray My impression: pulmonary edema Lab Data Lab results reviewed: Yes I reviewed the patient's lab results. ECG Data Attestation: I personally reviewed and interpreted this ECG (s) as follows: Prior ECG tracings: available for review Interpretation: sinus rhythm, rate of 87, pr 160, qtc 490, no acute st t wave ischemic changes HPI General Mode of arrival: ambulatory . Date/Time Provider Initiated Documentation: 11/10/18 23:31 . Limitations to Documentation: no limitations . Information obtained by: patient . History of Present Illness 68 year old F presents to the emergency department with the chief complaint of shortness of breath, described as severe, Patient started experiencing this hour(s) (1) and it has been constant. No relieving factors improve symptom(s), No exacerbating factors reported . Patient did receive the following treatments prior to arrival, none Related Data Home Medications Medication Instructions Recorded Confirmed aspirin [Aspir-81] 81 mg PO DAILY tab-cap 04/19/13 11/10/18 acetaminophen [Tylenol] 650 mg PO Q6H PRN PRN #0 tab 08/29/18 11/10/18 labetalol 300 mg tablet 300 mg PO BID 09/30/18 11/10/18 amlodipine 10 mg tablet 10 mg PO DAILY 10/08/18 11/10/18 atorvastatin 20 mg tablet 20 mg PO QHS 10/08/18 11/10/18 clonidine HCl 0.1 mg tablet 0.1 mg PO PRN tab 10/08/18 11/10/18 isosorbide mononitrate 30 mg 90 mg PO DAILY tab 10/08/18 11/10/18 tablet,extended release 24 hr gabapentin 100 mg capsule 200 mg PO HS cap 11/02/18 11/10/18 levothyroxine 25 mcg capsule 25 mcg PO DAILY 11/02/18 11/10/18 Previous Rx's Medication Instructions Recorded acetaminophen [Tylenol] 650 mg PO Q6H PRN PRN #0 tab 08/29/18 Allergies Allergy/AdvReac Type Severity Reaction Status Date / Time lisinopril AdvReac Mild Rise in Verified 11/02/18 08:33 creatinine General Stated Complaint: SOB BILLY: 2 Review of Systems Review of Systems All systems reviewed & are unremarkable except as noted in HPI and below Constitutional Denies chills and Denies fever(s) ENT Denies change in voice Cardiovascular Denies chest pain Gastrointestinal Denies abdominal pain and Denies vomiting Musculoskeletal Denies joint swelling Endocrine Denies cold intolerance [facility] Medical History (Updated 11/02/18 @ 17:38 by Sanjuanita Lee MD) Abdominal aortic aneurysm (AAA) without rupture (Chronic 01/04/16) Cardiomyopathy (Chronic) CKD (chronic kidney disease) (Chronic) Congestive heart failure (Chronic) Hepatitis B (Chronic 02/24/13) High blood cholesterol (Chronic) HTN (hypertension) (Chronic) Renal artery stenosis (Chronic) Surgical History (Updated 09/16/18 @ 15:52 by Jessa Miller RN) Bilateral salpingectomy with oophorectomy (Chronic) Colonoscopy - MAC (Resolved 09/27/12) EGD W/ BS (Resolved 08/12/12) Hysterectomy, Laproscopic (Chronic ~01/1984) Status post surgery (Acute 09/07/18) Social History (Updated 11/02/18 @ 08:41 by Mariajose Yañez LPN) Smoking/Tobacco Use Status: Former Tobacco Use Alcohol Intake: never Drug use: Never Substance use type: does not use Foster care: No Household members: spouse Housing: house Number of Children: 2 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 gender 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: female What is your relationship status?: Panel score (0-1 are the most socially isolated patients): 1 What type of physical activity do you participate in: none Seatbelt use: always Drive intox or ride w/intox automation driver: No Working smoke detector in home: Yes Fire extinguisher in home: Yes Carbon monox detector in home: Yes Do you feel safe at home: Yes Do you feel safe in your relationship?: Yes Exam Const Orientation: alert HENMT Head: normal to inspection Ears: external ears normal General nose exam: external nose normal Mouth: moist mucous membranes Eyes General: appearance normal, both eyes and all related structures Neck Neck: normal visual inspection Resp Effort & Inspection: tachypneic and uses accessory muscles Cardio Rate: regular rate Skin General skin exam: no rashes or lesions noted Neuro General: alert and oriented x3 Extrem General: normal to inspection Psych Mental Status: mental status grossly normal Course Vital Signs Temperature 36.5 C 11/10/18 23:36 Pulse 91 H 11/10/18 23:36 Respiratory Rate 22 11/10/18 23:36 Blood Pressure 178/79 H 11/10/18 23:36 Pulse Oximetry 64 L 11/10/18 23:36 Temperature 36.5 C 11/10/18 23:36 Temperature Source Tympanic 11/10/18 23:36 Pulse 91 H 11/10/18 23:36 Respiratory Rate 22 11/10/18 23:36 Respiratory Effort Accessory Muscle Use 11/10/18 23:40 Blood Pressure 178/79 H 11/10/18 23:36 Pulse Oximetry 64 L 11/10/18 23:36 Oxygen Delivery Method Room Air 11/10/18 23:36 Oxygen Flow Rate 0 11/10/18 23:36 Comment 11/10/18 23:36 Critical Care Time Critical Care Time: Yes Total Critical Care Time: 45 (minutes) Attestation: time spent starting iv nitro for patient with hypertensive emergency, frequent reassesments and lab review in patient with potential to deteriorate at any time
--- NOTE | 2018-11-10 23:49 | DI.RAD_ITS ---
SYMPTOM/DIAGNOSIS: SHORTNESS OF BREATH PORTABLE SEMI-ERECT UPRIGHT CHEST: Increased interstitial markings are noted in the lungs. No gross localized pulmonary infiltrate is seen. There may be a very small right pleural effusion. Cardiomegaly is identified. SUMMARY: Findings most consistent with congestive failure
[2018-11-10 23:56] LABS: Lactate-non-spesis 0.7 mmol/l (0.6-1.4)
[2018-11-11] VITALS (128 sets, daily range): BP systolic 127–190; BP diastolic 47–159; PULSE 70–120; RESP 8–25; TEMP 36.1–38.6; O2SAT 82–99
[2018-11-11] MEDS: Furosemide 40 MG/4 ML VIAL IVP
[2018-11-11 00:07] LABS: Abs Immature Grans 0.03 k/cumm (0.0-0.09); Absolute Basophil Count 0.08 k/cumm (0.0-0.2); Absolute Lymphocyte Count 1.57 k/cumm (1.2-3.4); Absolute Monocyte Count 0.71 k/cumm (0.11-0.7); Absolute Neutrophil Count 4.64 k/cumm (1.2-6.7); Eosinophils % 11.3; HCT 33.8 % (36.0-46.0); HGB 11.4 g/dL (12.0-15.5); Immature Grans % 0.4; Lymphocytes % 19.8; Mean Corp. HGB Concentration 33.7 g/dL (32.0-36.0); Mean Corpuscular Hemoglobin 30.8 pg (27.0-33.0); Mean Corpuscular Volume 91.4 fL (80-95); Mean Platelet Volume 10.7 fL (8.0-11.0); Neutrophils % 58.5; Platelet Count 297 x1000/uL (130-400); RBC Distribution Width 15.9 % (11.7-14.6); White Blood Cell Count 7.93 k/cumm (4.4-10.8)
[2018-11-11 00:16] LABS: INR 1.1 (0.9-1.1); PTT Activated 21.9 sec (21.0-31.4); Prothrombin Time 10.5 sec (9.3-11.0)
[2018-11-11 00:19] LABS: ALT 17 U/L (12-78); AST 19 U/L (15-37); Albumin 3.8 g/dL (3.4-5.0); Alkaline Phosphatase 77 U/L (46-116); Anion Gap 16.1 mmol/L (3-11); BUN 34 mg/dL (7-18); Bilirubin, Total 0.6 mg/dL (0.2-1.0); CO2 18.9 mmol/L (21.0-32.0); CREATININE 2.63 mg/dL (0.55-1.02); Chloride 100 mmol/L (98-107); Estimated GFR 17.96 (mL/min/1.73m2); Glucose 167 mg/dL (70-100); Potassium 3.8 mmol/L (3.5-5.1); Sodium 135 mmol/L (136-145); Total Protein 7.4 g/dL (6.4-8.2)
[2018-11-11 00:20] LABS: Troponin I < 0.05 ng/mL (0.00-0.06)
[2018-11-11 00:25] LABS: NT-proBNP 24458 pg/mL
--- NOTE | 2018-11-11 00:47 | NUR.NOTE ---
Nursing Note: Pt refused whitaker cath. will measure output manually.
--- NOTE | 2018-11-11 01:03 | DI.VRAD_ITS ---
EXAM: XR Chest, 1 View EXAM DATE/TIME: 11/10/2018 11:41 PM CLINICAL HISTORY: 68 years old, female; Shortness of breath TECHNIQUE: Imaging protocol: XR of the chest, 1 view. COMPARISON: SC XR PORTABLE CHEST AP 08/27/2018 11:29 PM FINDINGS: Lungs: Diffuse interstitial opacities suspicious for edema. Pleural space: Unremarkable. No pleural effusion. No pneumothorax. Heart/Mediastinum: Unremarkable. No cardiomegaly. Bones/joints: Unremarkable. IMPRESSION: Diffuse interstitial opacities suspicious for edema. Dictated and Authenticated by: Brent Luis MD. Ordering:AMANDA Kennedy MD
--- NOTE | 2018-11-11 01:15 | HPE_ITS ---
Date of service: 11/11/18 Time of Service: 01:15 Assessment and Plan (1) Hypertensive urgency, malignant: Current visit: Yes Status: Acute chronic HTN w/ poor control, now presenting w/ acute dyspnea and pulmonary edema and worsening BP. Patient has responded so fart to lasix and BIPAP and NTG drip. I will add nicardipine to her parenteral antihypertensives for tonight to get her BP under 160 mm and wean off the NTG drip. She will need phone consultation w/ her manager med surg in the a.m. to coordinaed what new BP meds needed added, and to find out if he was also worked up for hyperaldosteronism and pheochromocytoma (2) Acute respiratory failure: Current visit: Yes Status: Acute secondary to the pulmonary edema caused by his hypertensive episode. Qualifiers: Respiratory failure complication: hypoxia Qualified Code(s): J96.01 - Acute respiratory failure with hypoxia (3) Renovascular hypertension: Current visit: No Status: Chronic cont. labetolol, and resume his Imdur once off the NTG drip but hold on amlodipine until off nicardipen drip. further BP med adjustment w/ consultation w/ Dr. Brady Gallo at [facility], the patient's manager med surg. (4) Acute kidney injury superimposed on chronic kidney disease: Current visit: Yes Status: Acute secondary to hypertensive urgency; control BP w/ nifedipine drip; gentle diuresis; patient given one time dose of iv lasix and seems to be diuresing from this (over 700 mL) and her respiratory status is improved. will repeat her BMP in the a.m. Patient refused whitaker catheter to monitor her urine output. History of Present Illness Chief Complaint: shortness of breath Narrative: 68 yr old female w/ renovascular HTN, CKD stg 3GB/4, baseline creatinine is 1.9 to 2, renal ischemia caused by b/l renal artery stenosis who has hx of flash pulmonary edema d/t HTN crisis. Tonight she presented w/ similar symptoms of acute dyspnea w/out CP. BP at home was running 170's to 180's systolic. Upon arrival to the ER she was in acute respitory distress w/ RR in the 20's and SPO2 of 88% on RA and hypertensive w/ SBP in the high 180's and diastolic in the 80's. She was treated w/ BIPAP 10/5 cm, FIO2 40%, lasix 40 mg IVP and initiation of NTG drip w/ titration up to 60 mcg/minute. She is now breathing easier and no longer feels dyspneic. She is admitted to the ICU for treatment of acute pulmonary edema d/t hypertensive crisis. She has HFpEF w/ LVEF 54% on recent TTE (August 2018), s/p renal angiogram in August 2018 at [facility] that demonstrated widely patent L. main renal artery but occluded renal artery at its origin. She underwent R. external iliac to R. renal artery bypass w/ reveresed R. GSV on 09/07/2018 after being admitted for acute respiratory failure d/t flash pulmonary edema from HTN crisis along w/ GAEL w/ rise of creatinine to 2.89. She was admitted to the hospital in September for severe orthostatic hypotension and syncope. She was treated w/ iv fluids and adjustment of her BP meds. Yesterday she saw her manager med surg who felt that she was doing well overall but had suboptimal control of her HTN (her BP in the office was 161/77 w/ HR of 76. At that time she was on norvasc 10 mg, labetolol 300 mg HS and 200 mg qam, Imdure 90 mg at noon. She reports checking her BP 3 x per day with readings in the 130 to 180 in the morning but her evenings are always high in the 180-190. Her manager med surg increased her labetolol to 300 mg BID and left the rest of her meds the same. Review of Systems Constitutional Reports as per [facility] Eyes Reports system reviewed and no additional complaints, except as [facility] ENT Reports system reviewed and no additional complaints, except as [facility] Cardiovascular Denies chest pain, Denies chest pain at rest, Denies chest pain with activity, Reports pedal edema (chronic mild right ankle and pedal edema since her SVG harvest), Denies palpitations, Reports dyspnea and Reports dyspnea on exertion Respiratory Denies chest congestion, Denies cough, Denies hemoptysis, Denies excessive phlegm production, Reports dyspnea and Reports dyspnea on exertion Gastrointestinal Reports system reviewed and no additional complaints, except as docu Genitourinary Reports system reviewed and no additional complaints, except as [facility] Musculoskeletal Reports system reviewed and no additional complaints, except as [facility] Integumentary/Breasts Reports system reviewed and no additional complaints, except as docu Neurologic Reports system reviewed and no additional complaints, except as docu Psychiatric Reports system reviewed and no additional complaints, except as docu Endocrine Reports system reviewed and no additional complaints, except as docu and Denies palpitations Hematologic/Lymphatic Reports easy bruising Allergic/Immunologic Reports system reviewed and no additional complaints, except as docu [facility] Medical History (Updated 11/11/18 @ 15:42 by Akua Baugh MD) Abdominal aortic aneurysm (AAA) without rupture (Chronic 01/04/16) 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) Cardiomyopathy (Chronic) CKD (chronic kidney disease) (Chronic) Congestive heart failure (Chronic) Creatinine elevation (Inactive) Hearing loss (Chronic) Hepatitis B (Chronic 02/24/13) High blood cholesterol (Chronic) HTN (hypertension) (Chronic) Jaundice (Inactive 02/28/13) 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) Renal artery stenosis (Chronic) Renovascular hypertension (Chronic) Surgical History (Updated 09/16/18 @ 15:52 by Jessa Miller RN) Bilateral salpingectomy with oophorectomy (Chronic) Colonoscopy - MAC (Resolved 09/27/12) EGD W/ BS (Resolved 08/12/12) Hysterectomy, Laproscopic (Chronic ~01/1984) Status post surgery (Acute 09/07/18) Social History (Updated 11/02/18 @ 08:41 by Mariajose Yañez LPN) Smoking/Tobacco Use Status: Former Tobacco Use Alcohol Intake: never Drug use: Never Substance use type: does not use Foster care: No Household members: spouse Housing: house Number of Children: 2 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 Current gender identity: female What is your relationship status?: Panel score (0-1 are the most socially isolated patients): 1 What type of physical activity do you participate in: none Seatbelt use: always Drive intox or ride w/intox medical delivery driver: No Working smoke detector in home: Yes Fire extinguisher in home: Yes Carbon monox detector in home: Yes Do you feel safe at home: Yes Do you feel safe in your relationship?: Yes Meds Home Medications Medication Instructions Recorded Confirmed Type aspirin [Aspir-81] 81 mg PO DAILY tab-cap 04/19/13 11/10/18 History acetaminophen [Tylenol] 650 mg PO Q6H PRN PRN #0 tab 08/29/18 11/10/18 Rx labetalol 300 mg tablet 300 mg PO BID 09/30/18 11/10/18 History amlodipine 10 mg tablet 10 mg PO DAILY 10/08/18 11/10/18 History atorvastatin 20 mg tablet 20 mg PO QHS 10/08/18 11/10/18 History clonidine HCl 0.1 mg tablet 0.1 mg PO PRN tab 10/08/18 11/10/18 History isosorbide mononitrate 30 mg 90 mg PO DAILY tab 10/08/18 11/10/18 History tablet,extended release 24 hr gabapentin 100 mg capsule 200 mg PO HS cap 11/02/18 11/10/18 History levothyroxine 25 mcg capsule 25 mcg PO DAILY 11/02/18 11/10/18 History sodium bicarbonate 650 mg tablet 1,300 mg PO BID tab 11/11/18 History Allergies Allergy/AdvReac Type Severity Reaction Status Date / Time lisinopril AdvReac Mild Rise in Verified 11/02/18 08:33 creatinine Exam Const General: cooperative, healthy appearing and no acute distress (no longer in respiratory distress) Nutritional Appearance: average body habitus Orientation: alert, awake and oriented x3 Eyes General: appearance normal, both eyes and all related structures Visual Scott: normal visual scott by confrontation Alignment and Position: alignment normal Periorbital: periorbital findings normal Eyelids: eyelids normal Conjunctivae: conjunctivae normal Sclera: sclerae normal Cornea: corneas normal Pupils: PERRL EOM: EOM intact bilaterally Neck Neck: full ROM, no lymphadenopathy, trachea midline, supple and no JVD Carotids: normal carotid upstroke Lymphatic: no lymphadenopathy noted Resp Effort & Inspection: normal respiratory effort, able to speak in complete sentences, not labored, not tachypneic and no use of accessory muscles Auscultation: rales bilaterally at the base Cardio Jugular venous pressure: no JVD Palpation: normal PMI Rate: regular rate Rhythm: regular rhythm Heart Sounds: S1 normal, S2 normal and gallop S3 gallop Pulses: normal peripheral pulses GI Inspection: normal to inspection Palpation: soft and no hepatosplenomegaly Percussion: normal to percussion Auscultation: normal bowel sounds and bruit left renal and right renal Rectal Exam - female: deferred Back/Spine/Pelvis Back: no CVA tenderness Skin General skin exam: other (bruising on arms) Neuro General: alert, awake, oriented x3, moves all extremities and no focal motor deficits Cognition: normal cognition Speech: speech normal Extrem General: normal to inspection, full ROM, normal exam except as noted, no calf tenderness and edema Laterality: right (trace edema in right foot and right pretibia) Psych Appearance: grossly normal Mental Status: mental status grossly normal Speech and Movement: speech and movement normal Mood: congruent mood Affect: normal affect Attitude: cooperative Thought Process: normal Thought Content: normal Insight: insight good Judgment: judgment good Results Imaging Chest x-ray: image reviewed (IMPRESSION: Diffuse interstitial opacities suspicious for edema. Dictated and Authenticated by: Brent Luis MD) EKG: image reviewed (NSR 87 bpm, suspect LVH) Labs : 11/10/18 23:45 11/11/18 06:08 Laboratory Results - last 24 hr 11/10/18 11/10/18 11/10/18 23:45 23:45 23:45 WBC RBC Hgb Hct MCV MCH MCHC RDW Plt Count MPV Immature Gran % Neutrophils % Lymphocytes % Monocytes % Eosinophils % Basophils % Absolute Neutrophils Absolute Lymphocytes Absolute Monocytes Absolute Eosinophils Absolute Basophils PT INR APTT Sodium 135 L Potassium 3.8 Chloride 100 Carbon Dioxide 18.9 L Anion Gap 16.1 H BUN 34 H Creatinine 2.63 H Estimated GFR/1.73 m2 17.96 Glucose 167 H Lactate 0.7 Calcium 9.0 Magnesium 2.0 Total Bilirubin 0.6 AST 19 ALT 17 Alkaline Phosphatase 77 Troponin I < 0.05 NT-Pro-B Natriuret Pep 58211 H Total Protein 7.4 Albumin 3.8 11/10/18 11/10/18 23:45 23:45 WBC 7.93 RBC 3.70 L Hgb 11.4 L Hct 33.8 L MCV 91.4 MCH 30.8 MCHC 33.7 RDW 15.9 H Plt Count 297 MPV 10.7 Immature Gran % 0.4 Neutrophils % 58.5 Lymphocytes % 19.8 Monocytes % 9.0 Eosinophils % 11.3 Basophils % 1.0 Absolute Neutrophils 4.64 Absolute Lymphocytes 1.57 Absolute Monocytes 0.71 H Absolute Eosinophils 0.90 H Absolute Basophils 0.08 PT 10.5 INR 1.1 APTT 21.9 Sodium Potassium Chloride Carbon Dioxide Anion Gap BUN Creatinine Estimated GFR/1.73 m2 Glucose Lactate Calcium Magnesium Total Bilirubin AST ALT Alkaline Phosphatase Troponin I NT-Pro-B Natriuret Pep Total Protein Albumin Last Vital Signs Temp 36.5 C 11/10/18 23:36 Pulse 80 11/11/18 01:02 Resp 15 11/11/18 01:02 BP 164/79 H 11/11/18 01:02 Pulse Ox 92 L 11/11/18 01:02
[2018-11-11] MEDS: niCARdipine 25 MG in Normal Saline 240 ML 50 MG IV ×4 (03:34→20:07)
[2018-11-11] MEDS: Enoxaparin 30 MG/0.3 ML SYR SC (03:38)
--- NOTE | 2018-11-11 05:59 | NUR.NOTE ---
spoke with Dr Vasquez about nitro gtt and pt's blood pressure. Ntg gtt tapered to off as dierected Nicardipine gtt on at 5 mg.Nursing Note:
--- NOTE | 2018-11-11 08:16 | PGE_ITS ---
Date of Service Date of service: 11/11/18 Time of Service: 08:16 Assessment and Plan (1) Hypertensive emergency: Current visit: Yes Status: Acute in setting of renovascular hypertension s/p renal artery bypass and, evidently, a missed dose of afternoon meds prior to presentation. The patient remains on cardene gtt. Will introduce a small dose of imdur, increase labetalol to 450 as recommended by [facility] nephrology in their last visit, give a dose of norvasc now. Continue diuresis. Continue to monitor in ICU. (2) Acute on chronic systolic (congestive) heart failure: Current visit: No Status: Acute On echo from [facility], last EF is 54%. Patient placed on lasix gtt which would be the most gentle on her kidneys and achieve diuresis. BP control is burgess. (3) Acute respiratory failure with hypoxia: Current visit: No Status: Acute Due to above. Off BiPAP. Wean O2 as tolerated. (4) Renovascular hypertension: Current visit: No Status: Chronic s/p renal artery bypass. Just saw vascular surgery on 11/09/18 - bypass is functioning well. It is still possible that this was the trigger for this episode of hypertensive urgency, but much less likely (5) Discharge planning issues: Current visit: No Status: Inactive Full code. Continues to require ICU. (6) Acute kidney injury superimposed on chronic kidney disease: Current visit: Yes Status: Acute Control BP. monitor UOP/ Cr on lasix gtt. (7) DVT prophylaxis: Current visit: Yes Status: Acute Renally dosed lovenox Subjective Interval history since last seen: Remains on cardene gtt, 5 mg/hr. BP in 140's Off bipap, O2 sat 87% on RA, about to be put on O2. Denies dizziness, chest pain, shortness of breath at this time, nausea, vomiting. Exam Narrative Exam Narrative: General: very pleasant elderly female, looks comfortable when sitting in the chair eating lunch HEENT: EOMI, MMM Heart: RRR, no m/r/g Lungs: Crackles 1[address] B lungs GI: abdomen is soft, nontender, nondistended Extremities: +1 edema BLE's, no c/c; R foot with dark tip of 4th toe, 2+ B pedal pulses Objective Objective Clinical Data: Abnormal lab results 11/10/18 11/10/1819 Range/Units 23:45 23:45 23:45 RBC 3.70 L (4.00-5.20) m/cumm Hgb 11.4 L (12.0-15.5) g/dL Hct 33.8 L (36.0-46.0) % RDW 15.9 H (11.7-14.6) % Absolute Monocytes 0.71 H (0.11-0.7) k/cumm Absolute Eosinophils 0.90 H (0.0-0.7) k/cumm Sodium 135 L (136-145) mmol/L Carbon Dioxide 18.9 L (21.0-32.0) mmol/L Anion Gap 16.1 H (3-11) mmol/L BUN 34 H (7-18) mg/dL Creatinine 2.63 H (0.55-1.02) mg/dL Glucose 167 H (70-100) mg/dL NT-Pro-B Natriuret Pep 96063 H ( - 299) pg/mL Vital Signs Temperature 37.3 C 11/11/18 08:02 Temperature Source Temporal Artery Scan 11/11/18 08:02 Pulse 80 11/11/18 07:01 Pulse 81 11/11/18 07:01 Respiratory Rate 14 11/11/18 07:01 Respiratory Effort Non-Labored 11/11/18 02:30 Respiratory Depth Normal 11/11/18 02:30 Respiratory Pattern Normal 11/11/18 02:30 Blood Pressure 154/60 H 11/11/18 07:01 Blood Pressure Mean 82 11/11/18 07:01 Blood Pressure Position Supine 11/11/18 08:02 Pulse Oximetry 89 L 11/11/18 08:02 Oxygen Delivery Method Room Air 11/11/18 08:02 Oxygen Flow Rate 0 11/11/18 08:02 Fraction of Inspired Oxygen (FIO2) 40 11/11/18 02:30 Pain Level 0 11/11/18 02:30 Comment 11/10/18 23:36 Intake & Output 11/10/18 11/10/18 11/11/18 11:59 23:59 11:59 Intake Total 88.500 / 88.500 Output Total 1000 / 1000 Balance -911.500 / -911.500 Weight 43.091 kg 47.2 kg Intake: IV 88.500 / 88.500 Output: Urine 1000 / 1000 Other: Urine Color Light Fanta Urine Appearance Clear Urine Odor None Stool Occult Blood Negative Stool Size Large Stool Characteristics Soft Formed Brown Voiding Methods Bedside Commode Laboratory Results WBC 7.93 k/cumm (4.4-10.8) 11/10/18 23:45 RBC 3.70 m/cumm (4.00-5.20) L 11/10/18 23:45 Hgb 11.4 g/dL (12.0-15.5) L 11/10/18 23:45 Hct 33.8 % (36.0-46.0) L 11/10/18 23:45 MCV 91.4 fL (80-95) 11/10/18 23:45 MCH 30.8 pg (27.0-33.0) 11/10/18 23:45 MCHC 33.7 g/dL (32.0-36.0) 11/10/18 23:45 RDW 15.9 % (11.7-14.6) H 11/10/18 23:45 Plt Count 297 x1000/uL (130-400) 11/10/18 23:45 MPV 10.7 fL (8.0-11.0) 11/10/18 23:45 Immature Gran % 0.4 11/10/18 23:45 58.5 11/10/18 23:45 19.8 11/10/18 23:45 9.0 11/10/18 23:45 11.3 11/10/18 23:45 1.0 11/10/18 23:45 Absolute Neutrophils 4.64 k/cumm (1.2-6.7) 11/10/18 23:45 Absolute Lymphocytes 1.57 k/cumm (1.2-3.4) 11/10/18 23:45 Absolute Monocytes 0.71 k/cumm (0.11-0.7) H 11/10/18 23:45 Absolute Eosinophils 0.90 k/cumm (0.0-0.7) H 11/10/18 23:45 Absolute Basophils 0.08 k/cumm (0.0-0.2) 11/10/18 23:45 PT 10.5 sec (9.3-11.0) 11/10/18 23:45 INR 1.1 (0.9-1.1) 11/10/18 23:45 APTT 21.9 sec (21.0-31.4) 11/10/18 23:45 Sodium 135 mmol/L (136-145) L 11/10/18 23:45 Potassium 3.8 mmol/L (3.5-5.1) 11/10/18 23:45 Chloride 100 mmol/L (98-107) 11/10/18 23:45 Carbon Dioxide 18.9 mmol/L (21.0-32.0) L 11/10/18 23:45 16.1 mmol/L (3-11) H 11/10/18 23:45 BUN 34 mg/dL (7-18) H 11/10/18 23:45 2.63 mg/dL (0.55-1.02) H 11/10/18 23:45 17.96 (mL/min/1.73m2) 11/10/18 23:45 Glucose 167 mg/dL (70-100) H 11/10/18 23:45 0.7 mmol/l (0.6-1.4) 11/10/18 23:45 Calcium 9.0 mg/dL (8.5-10.1) 11/10/18 23:45 Magnesium 2.0 mg/dL (1.8-2.4) 11/10/18 23:45 0.6 mg/dL (0.2-1.0) 11/10/18 23:45 AST 19 U/L (15-37) 11/10/18 23:45 ALT 17 U/L (12-78) 11/10/18 23:45 77 U/L (46-116) 11/10/18 23:45 < 0.05 ng/mL (0.00-0.06) 11/10/18 23:45 NT-Pro-B Natriuret Pep 35277 pg/mL (-299) H 11/10/18 23:45 7.4 g/dL (6.4-8.2) 11/10/18 23:45 3.8 g/dL (3.4-5.0) 11/10/18 23:45
[2018-11-11] MEDS: Labetalol 100 MG TAB 300 MG PO (08:26)
[2018-11-11] MEDS: Aspirin E.C. 81 MG TABEC PO (08:27)
[2018-11-11] MEDS: Levothyroxine 25 MCG TAB PO (08:27)
[2018-11-11 09:11] LABS: Anion Gap 13.3 mmol/L (3-11); BUN 35 mg/dL (7-18); CO2 19.7 mmol/L (21.0-32.0); CREATININE 2.63 mg/dL (0.55-1.02); Chloride 103 mmol/L (98-107); Estimated GFR 17.96 (mL/min/1.73m2); Glucose 119 mg/dL (70-100); NT-proBNP 26739 pg/mL; Potassium 3.4 mmol/L (3.5-5.1); Sodium 136 mmol/L (136-145)
[2018-11-11 09:12] LABS: Troponin I < 0.05 ng/mL (0.00-0.06)
[2018-11-11] MEDS: Potassium Chloride 20 MEQ TABCR 40 MEQ PO (12:34)
--- NOTE | 2018-11-11 15:15 | CHAPLAIN ---
Charlene was sitting in her chair, wrapped in warm blankets when I visited. I introduced myself, explained my role and offered support.
--- NOTE | 2018-11-11 16:02 | INITIAL_ITS ---
- If Service Date Differs Date of service: 11/11/18 Time of Service: 16:02 Care Management Initial Assess REASON FOR HOSPITALIZATION:: Hypertensive emergency PAST MEDICAL HISTORY/PAST SURGICAL HISTORY:: Renal arterial stenosis, high cholesterol, hypertension, hepatitis B, aortic aneurysm. PREVIOUS FUNCTIONAL STATUS/SOCIAL/FAMILY SUPPORTS:: Jami lives in her own home in [place], [place] with her spouse Rodolfo. She works full-time for a local [email or web address]. Her primary care is [facility] internal medicine. She follows up with nephrology at [facility]. She has no equipment at home she is independent with ADLs and transportation. CURRENT FUNCTIONAL STATUS:: Charlene is sitting up in the chair she is receivng care in the ICU. Charlene will be discharged home when medically ready anticpate no services at time of discharge. 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 PATIENT/FAMILY EDUCATION NEEDS:: Discharge education, limitations, follow-up plan of care, asked me 3 and self-management. ANTICIPATED BARRIERS TO DISCHARGE:: None identified. TRANSPORTATION:: Via private car with spouse at time of discharge. PLAN:: Charlene will be discharged home when medically ready per provider. No change in status today, she remains in the ICU on a lasix and nicardipine drip. Anticpate no additional services at time of discharge. CM to continue to provide support discharge planning.
[2018-11-11] MEDS: Labetalol 100 MG TAB 150 MG PO (17:09)
[2018-11-11] MEDS: Isosorbide Mononitrate 30 MG TABCR PO (17:10)
[2018-11-11] MEDS: amLODIPine 10 MG TAB PO (17:10)
[2018-11-11] MEDS: Labetalol 100 MG TAB 450 MG PO (20:10)
[2018-11-11] MEDS: Normal Saline Flush 10 ML SYR IVP (20:14)
[2018-11-11] MEDS: Gabapentin 100 MG CAP 200 MG PO (21:43)
[2018-11-11] MEDS: Atorvastatin 20 MG TAB PO (21:44)
[2018-11-12] VITALS (123 sets, daily range): BP systolic 137–176; BP diastolic 57–128; PULSE 0–90; RESP 8–35; TEMP 36.3–37.6; O2SAT 85–97
[2018-11-12] MEDS: Enoxaparin 30 MG/0.3 ML SYR SC (04:20)
[2018-11-12] MEDS: Levothyroxine 25 MCG TAB PO (06:11)
[2018-11-12 07:35] LABS: Abs Immature Grans 0.02 k/cumm (0.0-0.09); Absolute Basophil Count 0.06 k/cumm (0.0-0.2); Absolute Eosinophil Count 0.58 k/cumm (0.0-0.7); Absolute Lymphocyte Count 1.82 k/cumm (1.2-3.4); Absolute Neutrophil Count 3.86 k/cumm (1.2-6.7); Basophils % 0.8; Eosinophils % 8.1; HCT 31.7 % (36.0-46.0); HGB 10.6 g/dL (12.0-15.5); Immature Grans % 0.3; Lymphocytes % 25.5; Mean Corp. HGB Concentration 33.4 g/dL (32.0-36.0); Mean Corpuscular Hemoglobin 30.7 pg (27.0-33.0); Mean Corpuscular Volume 91.9 fL (80-95); Monocytes % 11.2; Neutrophils % 54.1; Platelet Count 287 x1000/uL (130-400); RBC 3.45 m/cumm (4.00-5.20); White Blood Cell Count 7.14 k/cumm (4.4-10.8)
[2018-11-12 08:02] LABS: Anion Gap 17.1 mmol/L (3-11); BUN 30 mg/dL (7-18); CO2 20.9 mmol/L (21.0-32.0); CREATININE 2.63 mg/dL (0.55-1.02); Calcium 8.9 mg/dL (8.5-10.1); Chloride 103 mmol/L (98-107); Estimated GFR 17.96 (mL/min/1.73m2); Glucose 89 mg/dL (70-100); Magnesium 1.8 mg/dL (1.8-2.4); Potassium 3.2 mmol/L (3.5-5.1); Sodium 141 mmol/L (136-145)
--- NOTE | 2018-11-12 08:10 | CMPROGNOTE_ITS ---
- If Service Date Differs Date of service: 11/12/18 Time of Service: 08:11 Care Management Progress Note S/O:Charlene was sitting up in bed when CM came into her room. She was pleasant but not very talkative. She stated she was anxiously waiting for Dr. Baugh to come and update her about her condition and the plan of care. A: Charlene is a 68 year old woman admitted to [facility] on 11/11/18 with a diagnosis of Hypertensive emergency P: Charlene will be discharged home when medically ready per provider. She remains in the ICU on a lasix and nicardipine drip. Anticpate no additional services at time of discharge. CM to continue to provide support to patient and to discharge planning process.
--- NOTE | 2018-11-12 08:22 | PGE_ITS ---
Date of Service Date of service: 11/12/18 Time of Service: 08:22 Assessment and Plan (1) Hypertensive emergency: Current visit: Yes Status: Acute in setting of renovascular hypertension s/p renal artery bypass and, evidently, a missed dose of afternoon meds prior to presentation. Off cardene gtt. Continue labetalol 450 mg PO BID as recommended by [facility] nephrology, norvasc, imdur. Continue diuresis. Continue to monitor in ICU. Might be able to transfer out later today. (2) Acute on chronic systolic (congestive) heart failure: Current visit: No Status: Acute On echo from [facility], last EF is 54%. Decrease lasix gtt to 2.5 mg/hr. Continue to monitor I/O's and daily weights. . (3) Acute respiratory failure with hypoxia: Current visit: No Status: Acute Due to above. Off BiPAP. Wean O2 as tolerated. (4) Renovascular hypertension: Current visit: No Status: Chronic s/p renal artery bypass. Saw vascular surgery on 11/09/18 - bypass is functioning well. It is still possible that this was the trigger for this episode of hypertensive urgency, but much less likely (5) Acute kidney injury superimposed on chronic kidney disease: Current visit: Yes Status: Acute Control BP. Cr did not change from yesterday. Decrease lasix gtt rate. Continue to monitor UOP/ Cr on lasix gtt. (6) Discharge planning issues: Current visit: No Status: Inactive Full code. Continues to require ICU. (7) DVT prophylaxis: Current visit: Yes Status: Acute Renally dosed lovenox Subjective Interval history since last seen: This am 172/76 before morning meds. Cardene gtt discontinued at 11 pm - restarted this morning - then discontinued at around 10 am. Still on lasix gtt - 1400 diuresed in the last 12 hrs/overnight. She is feeling better. Denies dizziness, chest pain, shortness of breath, nausea, vomiting. Exam Narrative Exam Narrative: General: very pleasant elderly female, looks comfortable laying in bed, head of bed at 30 degree angle HEENT: EOMI, MMM Heart: RRR, no m/r/g Lungs: Crackles heard at B bases today GI: abdomen is soft, nontender, nondistended Extremities: No edema BLE's, no c/c Objective Objective Clinical Data: Abnormal lab results 11/11/18 11/12/18 11/12/18 Range/Units 06:08 06:19 06:19 RBC 3.45 L (4.00-5.20) m/cumm Hgb 10.6 L (12.0-15.5) g/dL Hct 31.7 L (36.0-46.0) % RDW 16.0 H (11.7-14.6) % Absolute Monocytes 0.80 H (0.11-0.7) k/cumm Potassium 3.4 L 3.2 L (3.5-5.1) mmol/L Carbon Dioxide 19.7 L 20.9 L (21.0-32.0) mmol/L Anion Gap 13.3 H 17.1 H (3-11) mmol/L BUN 35 H 30 H (7-18) mg/dL Creatinine 2.63 H 2.63 H (0.55-1.02) mg/dL Glucose 119 H (70-100) mg/dL NT-Pro-B Natriuret Pep 87541 H ( - 299) pg/mL Vital Signs Temperature 36.3 C L 11/12/18 04:51 Temperature Source Temporal Artery Scan 11/12/18 04:51 Pulse 79 11/12/18 04:51 Pulse 75 11/11/18 23:01 Respiratory Rate 17 11/12/18 04:51 Respiratory Effort Non-Labored 11/12/18 04:51 Respiratory Depth Normal 11/12/18 04:51 Respiratory Pattern Normal 11/12/18 04:51 Blood Pressure 165/70 H 11/12/18 04:51 Blood Pressure Mean 101 11/12/18 04:51 Blood Pressure Position Supine 11/12/18 04:51 Pulse Oximetry 92 L 11/12/18 04:51 Oxygen Delivery Method Nasal Cannula 11/12/18 04:51 Oxygen Flow Rate 4 11/12/18 04:51 Fraction of Inspired Oxygen (FIO2) 40 11/11/18 02:30 Pain Level 0 11/11/18 21:00 Comment 11/10/18 23:36 Intake & Output 11/11/18 11/11/18 11/12/18 11:59 23:59 11:59 Intake Total 698.500 / 1667.583 944.083 / 1667.583 57.417 / 57.417 Output Total 1575 / 2785 1210 / 2785 1400 / 1400 Balance -876.500 / -1117.417 -265.917 / -1117.417 -1342.583 / -1342.583 Weight 47.2 kg 46.4 kg Intake: IV 338.500 / 1067.583 704.083 / 1067.583 57.417 / 57.417 Oral 360 / 600 240 / 600 Output: Urine 1575 / 2785 1210 / 2785 1400 / 1400 Other: Urine Color Yellow Yellow Pale Yellow Urine Appearance Clear Clear Clear Urine Odor None Normal None Stool Occult Blood Negative Stool Size Large Stool Characteristics Soft Soft Formed Formed Brown Brown Voiding Methods Bedside Commode Bedside Commode Bedside Commode Laboratory Results WBC 7.14 k/cumm (4.4-10.8) 11/12/18 06:19 RBC 3.45 m/cumm (4.00-5.20) L 11/12/18 06:19 Hgb 10.6 g/dL (12.0-15.5) L 11/12/18 06:19 Hct 31.7 % (36.0-46.0) L 11/12/18 06:19 MCV 91.9 fL (80-95) 11/12/18 06:19 MCH 30.7 pg (27.0-33.0) 11/12/18 06:19 MCHC 33.4 g/dL (32.0-36.0) 11/12/18 06:19 RDW 16.0 % (11.7-14.6) H 11/12/18 06:19 Plt Count 287 x1000/uL (130-400) 11/12/18 06:19 MPV 11.0 fL (8.0-11.0) 11/12/18 06:19 Immature Gran % 0.3 11/12/18 06:19 54.1 11/12/18 06:19 25.5 11/12/18 06:19 11.2 11/12/18 06:19 8.1 11/12/18 06:19 0.8 11/12/18 06:19 Absolute Neutrophils 3.86 k/cumm (1.2-6.7) 11/12/18 06:19 Absolute Lymphocytes 1.82 k/cumm (1.2-3.4) 11/12/18 06:19 Absolute Monocytes 0.80 k/cumm (0.11-0.7) H 11/12/18 06:19 Absolute Eosinophils 0.58 k/cumm (0.0-0.7) 11/12/18 06:19 Absolute Basophils 0.06 k/cumm (0.0-0.2) 11/12/18 06:19 PT 10.5 sec (9.3-11.0) 11/10/18 23:45 INR 1.1 (0.9-1.1) 11/10/18 23:45 APTT 21.9 sec (21.0-31.4) 11/10/18 23:45 Sodium 141 mmol/L (136-145) 11/12/18 06:19 Potassium 3.2 mmol/L (3.5-5.1) L 11/12/18 06:19 Chloride 103 mmol/L (98-107) 11/12/18 06:19 Carbon Dioxide 20.9 mmol/L (21.0-32.0) L 11/12/18 06:19 17.1 mmol/L (3-11) H 11/12/18 06:19 BUN 30 mg/dL (7-18) H 11/12/18 06:19 2.63 mg/dL (0.55-1.02) H 11/12/18 06:19 17.96 (mL/min/1.73m2) 11/12/18 06:19 Glucose 89 mg/dL (70-100) 11/12/18 06:19 0.7 mmol/l (0.6-1.4) 11/10/18 23:45 Calcium 8.9 mg/dL (8.5-10.1) 11/12/18 06:19 Magnesium 1.8 mg/dL (1.8-2.4) 11/12/18 06:19 0.6 mg/dL (0.2-1.0) 11/10/18 23:45 AST 19 U/L (15-37) 11/10/18 23:45 ALT 17 U/L (12-78) 11/10/18 23:45 77 U/L (46-116) 11/10/18 23:45 < 0.05 ng/mL (0.00-0.06) 11/11/18 06:08 NT-Pro-B Natriuret Pep 41270 pg/mL (-299) H 11/11/18 06:08 7.4 g/dL (6.4-8.2) 11/10/18 23:45 3.8 g/dL (3.4-5.0) 11/10/18 23:45
[2018-11-12] MEDS: amLODIPine 10 MG TAB PO (08:36)
[2018-11-12] MEDS: Aspirin E.C. 81 MG TABEC PO (08:36)
[2018-11-12] MEDS: Labetalol 100 MG TAB 450 MG PO ×2 (09:11→19:35)
[2018-11-12] MEDS: Potassium Chloride 20 MEQ TABCR 40 MEQ PO (09:11)
--- NOTE | 2018-11-12 12:36 | PHARADMIT ---
Admission Pharmacy Clinical Review PULMONAR EDEMA, HYPERTENSIVE EMERGENCY Code Status Full Code Current Weight Wgt-46.4 kg Renally Cleared and Narrow Therapeutic Index Meds CrCl~14.2 mL/min Meds-OK QTc Value / Action Taken none current BP Control, Fever BP- 159/81 Tmax- 37.9C Electrolytes reviewed Na-141 K+3.2 Mag-1.8 DVT Prophylaxis Lovenox Opiate Usage / Scheduled Bowel Regimen Ordered No Yes Plt/SCr for Heparin / Enoxaparin Plts- 287 SCr- 2.63 INR for Warfarin na H/H stable, WBC/Bands H&H- 10.6/31.7 WBC-7.14 Antibiotic appropriateness none Cultures and Sensitivities none Surgical ABX d/c within 24 hr na DM control / Insulin Dosing BG-89 Heart Failure (Check EF%) (ABBY's, B-Block, Diuretics) Norvasc,Lasix drip, Nicardipine Drip, Imdur, Labetalol IV to PO Switch No Home Meds Reviewed Yes Home Meds Not Ordered Clonidine, NaBicarb Comments
[2018-11-12] MEDS: Atorvastatin 20 MG TAB PO (21:40)
[2018-11-12] MEDS: Gabapentin 100 MG CAP 200 MG PO (21:40)
[2018-11-13] VITALS (98 sets, daily range): BP systolic 135–180; BP diastolic 62–109; PULSE 0–90; RESP 10–25; TEMP 37.1–38.2; O2SAT 86–98
[2018-11-13] MEDS: Enoxaparin 30 MG/0.3 ML SYR SC (00:17)
[2018-11-13] MEDS: Levothyroxine 25 MCG TAB PO (06:53)
[2018-11-13] MEDS: Labetalol 100 MG TAB 450 MG PO ×2 (09:12→20:45)
[2018-11-13] MEDS: amLODIPine 10 MG TAB PO (09:14)
[2018-11-13] MEDS: Aspirin E.C. 81 MG TABEC PO (09:14)
[2018-11-13 10:00] LABS: Abs Immature Grans 0.02 k/cumm (0.0-0.09); Absolute Basophil Count 0.08 k/cumm (0.0-0.2); Absolute Lymphocyte Count 1.26 k/cumm (1.2-3.4); Absolute Monocyte Count 1.14 k/cumm (0.11-0.7); Absolute Neutrophil Count 4.19 k/cumm (1.2-6.7); Basophils % 1.1; Eosinophils % 8.2; HCT 34.7 % (36.0-46.0); HGB 11.8 g/dL (12.0-15.5); Immature Grans % 0.3; Lymphocytes % 17.3; Mean Corpuscular Hemoglobin 31.1 pg (27.0-33.0); Mean Corpuscular Volume 91.6 fL (80-95); Mean Platelet Volume 10.8 fL (8.0-11.0); Monocytes % 15.6; Neutrophils % 57.5; Platelet Count 304 x1000/uL (130-400); RBC 3.79 m/cumm (4.00-5.20); RBC Distribution Width 15.8 % (11.7-14.6); White Blood Cell Count 7.29 k/cumm (4.4-10.8)
--- NOTE | 2018-11-13 10:08 | DI.RAD_ITS ---
SYMPTOM/DIAGNOSIS: FEVER CHEST X-RAY: Frontal and lateral views. Comparison 11/10/18 Heart size is within normal limits as is the pulmonary vasculature. There are bilateral pleural effusions which are small, left greater than right. Bilateral basilar infiltrates are seen, left greater than right. No pneumothorax is identified. Age related degenerative changes are see in the spine. The lungs do appear to be hyperinflated suggesting underlying COPD. IMPRESSION: Bilateral pleural effusions and basilar infiltrates, left greater than right.
[2018-11-13 10:11] LABS: Anion Gap 10.8 mmol/L (3-11); BUN 30 mg/dL (7-18); CO2 25.2 mmol/L (21.0-32.0); CREATININE 2.71 mg/dL (0.55-1.02); Calcium 9.1 mg/dL (8.5-10.1); Chloride 100 mmol/L (98-107); Estimated GFR 17.35 (mL/min/1.73m2); Glucose 154 mg/dL (70-100); Magnesium 1.9 mg/dL (1.8-2.4); Potassium 3.1 mmol/L (3.5-5.1); Sodium 136 mmol/L (136-145)
--- NOTE | 2018-11-13 10:12 | DI.VRAD_ITS ---
EXAM: XR Chest, 2 Views EXAM DATE/TIME: 11/13/2018 10:05 AM CLINICAL HISTORY: 68 years old, female; Fever TECHNIQUE: Imaging protocol: XR of the chest, 2 views. COMPARISON: SC XR PORTABLE CHEST AP 10/11/2018 23:48 FINDINGS: Lungs: Bibasilar infiltrates. Pleural space: Bilateral pleural effusions larger on the left than right. Heart/Mediastinum: Cardiomegaly. Bones/joints: Multilevel degenerative changes of the thoracic spine and upper lumbar spine. Other findings: EKG wires overlie the chest. IMPRESSION: Bilateral pleural effusions. Bibasilar infiltrates. Cardiomegaly. Dictated and Authenticated by: Ilene Cho MD. Ordering:TAZ Jade MD
--- NOTE | 2018-11-13 10:37 | CMPROGNOTE_ITS ---
Care Management Progress Note S/O:Charlene was sitting up in her recliner watching TV when CM came into her room. She remains pleasant but not very talkative. She stated she was disappointed that she would not be able to go home today. A: Charlene is a 68 year old woman admitted to [facility] on 11/11/18 with a diagnosis of Hypertensive emergency P: Charlene will be discharged home when medically ready per provider. She remains in the ICU on a lasix and nicardipine drip. Anticipate no additional services at time of discharge. CM to continue to provide support to patient and to discharge planning process.
[2018-11-13] MEDS: Potassium Chloride 20 MEQ TABCR 40 MEQ PO (11:19)
[2018-11-13] MEDS: levoFLOXacin 750 MG/150 ML BAG 100 MG IVPB (14:08)
[2018-11-13] MEDS: Normal Saline 500 ML 30 ML (14:12)
[2018-11-13] MEDS: Heparin 5,000 UNITS/ML VIAL 5000 UNITS SC ×2 (14:15→20:45)
--- NOTE | 2018-11-13 14:43 | PGE_ITS ---
Date of Service Date of service: 11/13/18 Time of Service: 14:44 Assessment and Plan (1) Fever: Current visit: Yes Status: Acute CXR with potential infiltrates. Patient has had multiple and recent hospitalizations, but has been here for less than 48 hours. Will initiate renally dosed IV Levofloxacin, and monitor temperature and vitals carefully. Patient is not complaining of cough or sputum production at this time. (2) Hypertensive emergency: Current visit: Yes Status: Acute Prior history of uncontrolled hypertension, with past episodes of Hypertensive Urgency/Emergency. Current blood pressure has stabilized at home values - also with a history of significant and symptomatic hypotension. Will aim for fair but not tight control while hospitalized here. Remains stable off Nicardipine gtt. Continue CCB, BB, and long-acting Nitrate. (3) Acute kidney injury superimposed on chronic kidney disease: Current visit: Yes Status: Acute Current creatinine worsening in setting of active diuresis. Also with evidence of L>R pleural effusions. In setting of worsening renal function and potential infiltrates as cause of hypoxia, will hold Lasix drip and monitor closely. Avoid Nephrotoxins, and renally dose medications when appropriate. Current clearance calculated at 13. (4) CKD (chronic kidney disease): Current visit: No Status: Chronic Stage IV CKD. (5) Congestive heart failure: Current visit: No Status: Deleted Noted EF 30%, improved to 54% in August of this year. Flash Pulmonary Edema and effusions in setting of Hypertensive Emergency. Diuresis as above. Continue to monitor volume status, daily weights. (6) Abdominal aortic aneurysm (AAA) without rupture: Current visit: No Status: Chronic Noted. Continue BB, ASA, and statin therapy. (7) Advance directive on file: Current visit: Yes Status: Acute Full Code. (8) DVT prophylaxis: Current visit: Yes Status: Acute Change SC Enoxaparin to Heparin. Subjective Interval history since last seen: 68 year old woman with a history of Renal Artery Stenosis and prior Hypertensive Emergency with Flash Pulmonary Edema, admitted from [facility] Emergency Department with a diagnosis of Hypertensive Emergency. Mrs. Harmon has a Past Medical History of CKD Stage 4, HTN, AAA, and Hypothyroidism. She was found to have Renal Artery Stenosis, for which she underwent a right sided Bypass in August of this year. There is mention of an acute Hepatitis B infection in the past, for which she underwent treatment. She has had prior episodes of Flash Pulmonary Edema in the setting of Hypertensive Emergency. Her other history includes CHF, with LVEF originally at 30% improved to 54% by recent ECHO. The patient initially presented to the ED with complaints of acute onset dyspnea, noted to be in respiratory distress and requiring BiPAP therapy. She was also diuresed prior to being referred for admission. This morning Mrs. Harmon reports improved symptoms compared to her initial presentation, but unchanged from yesterday. Her renal function has worsened since yesterday, and she is still requiring supplemental Oxygen. She was also noted to be febrile this morning, and in review of her vitals it appears that she was febrile at time of admission as well. Her urinalysis was negative, but CXR showed evidence of bilateral pleural effusions as well as bibasilar infiltrates. No other events reported. Exam Narrative Exam Narrative: General: Patient appears comfortable, AAOX3, NAD Neck: Supple CV: Regular, nontachycardic, S1S2, No rubs, murmurs, or gallops. Pulmonary: Decreased bibasilar breath sounds L>R, with evidence of crackles. No wheezing. Abdomen: + Bowel Sounds, soft, nontender, nondistended Vascular: No lower extremity edema Psych: Normal mood and affect. Objective Objective Clinical Data: Abnormal lab results 11/13/18 11/13/18 Range/Units 09:40 09:40 RBC 3.79 L (4.00-5.20) m/cumm Hgb 11.8 L (12.0-15.5) g/dL Hct 34.7 L (36.0-46.0) % RDW 15.8 H (11.7-14.6) % Absolute Monocytes 1.14 H (0.11-0.7) k/cumm Potassium 3.1 L (3.5-5.1) mmol/L BUN 30 H (7-18) mg/dL Creatinine 2.71 H (0.55-1.02) mg/dL Glucose 154 H (70-100) mg/dL Vital Signs Temperature 37.1 C 11/13/18 12:14 Temperature Source Temporal Artery Scan 11/13/18 12:14 Pulse 74 11/13/18 09:00 Pulse Rhythm Regular 11/12/18 23:30 Pulse 79 11/13/18 09:00 Respiratory Rate 19 11/13/18 09:00 Respiratory Effort 07/19/19 23:30 Respiratory Depth Normal 11/12/18 23:30 Respiratory Pattern Normal 11/12/18 23:30 Blood Pressure 166/72 H 11/13/18 09:00 Blood Pressure Mean 96 11/13/18 09:00 Blood Pressure Position Supine 11/12/18 16:41 Pulse Oximetry 95 11/13/18 14:19 Oxygen Delivery Method Nasal Cannula 11/13/18 14:19 Oxygen Flow Rate 1 11/13/18 14:19 Fraction of Inspired Oxygen (FIO2) 40 11/11/18 02:30 Pain Level 0 11/12/18 23:30 Comment 11/10/18 23:36 Intake & Output 11/12/18 11/13/18 11/13/18 23:59 11:59 23:59 Intake Total 240 / 389.500 Output Total 1270 / 3220 1425 / 1425 Balance -1030 / -2830.500 -1425 / -1425 Weight 43.6 kg Intake: Oral 240 / 240 Output: Urine 1270 / 3220 1425 / 1425 Other: Urine Color Yellow Yellow Urine Appearance Clear Clear Urine Odor None None Comment mixed with small BM Stool Size Large Stool Characteristics Soft Formed Voiding Methods Bedside Commode Bedside Commode Laboratory Results WBC 7.29 k/cumm (4.4-10.8) 11/13/18 09:40 RBC 3.79 m/cumm (4.00-5.20) L 11/13/18 09:40 Hgb 11.8 g/dL (12.0-15.5) L 11/13/18 09:40 Hct 34.7 % (36.0-46.0) L 11/13/18 09:40 MCV 91.6 fL (80-95) 11/13/18 09:40 MCH 31.1 pg (27.0-33.0) 11/13/18 09:40 MCHC 34.0 g/dL (32.0-36.0) 11/13/18 09:40 RDW 15.8 % (11.7-14.6) H 11/13/18 09:40 Plt Count 304 x1000/uL (130-400) 11/13/18 09:40 MPV 10.8 fL (8.0-11.0) 11/13/18 09:40 Immature Gran % 0.3 11/13/18 09:40 57.5 11/13/18 09:40 17.3 11/13/18 09:40 15.6 11/13/18 09:40 8.2 11/13/18 09:40 1.1 11/13/18 09:40 Absolute Neutrophils 4.19 k/cumm (1.2-6.7) 11/13/18 09:40 Absolute Lymphocytes 1.26 k/cumm (1.2-3.4) 11/13/18 09:40 Absolute Monocytes 1.14 k/cumm (0.11-0.7) H 11/13/18 09:40 Absolute Eosinophils 0.60 k/cumm (0.0-0.7) 11/13/18 09:40 Absolute Basophils 0.08 k/cumm (0.0-0.2) 11/13/18 09:40 PT 10.5 sec (9.3-11.0) 11/10/18 23:45 INR 1.1 (0.9-1.1) 11/10/18 23:45 APTT 21.9 sec (21.0-31.4) 11/10/18 23:45 Sodium 136 mmol/L (136-145) 11/13/18 09:40 Potassium 3.1 mmol/L (3.5-5.1) L 11/13/18 09:40 Chloride 100 mmol/L (98-107) 11/13/18 09:40 Carbon Dioxide 25.2 mmol/L (21.0-32.0) 11/13/18 09:40 10.8 mmol/L (3-11) 11/13/18 09:40 BUN 30 mg/dL (7-18) H 11/13/18 09:40 2.71 mg/dL (0.55-1.02) H 11/13/18 09:40 17.35 (mL/min/1.73m2) 11/13/18 09:40 Glucose 154 mg/dL (70-100) H 11/13/18 09:40 0.7 mmol/l (0.6-1.4) 11/10/18 23:45 Calcium 9.1 mg/dL (8.5-10.1) 11/13/18 09:40 Magnesium 1.9 mg/dL (1.8-2.4) 11/13/18 09:40 0.6 mg/dL (0.2-1.0) 11/10/18 23:45 AST 19 U/L (15-37) 11/10/18 23:45 ALT 17 U/L (12-78) 11/10/18 23:45 77 U/L (46-116) 11/10/18 23:45 < 0.05 ng/mL (0.00-0.06) 11/11/18 06:08 NT-Pro-B Natriuret Pep 93453 pg/mL (-299) H 11/11/18 06:08 7.4 g/dL (6.4-8.2) 11/10/18 23:45 3.8 g/dL (3.4-5.0) 11/10/18 23:45
[2018-11-13 19:11] LABS: Bilirubin Negative (Negative); Blood Negative (Negative); Clarity Clear (Clear); Glucose Negative (Negative); Ketones Negative (Negative); Leukocyte Esterase Negative (Negative); Nitrite Negative (Negative); Specific Gravity 1.015 (1.005-1.025); Urobilinogen 0.2 EU/dL (Up TO 0.2); pH 6.5 (5-8)
[2018-11-13 19:20] LABS: Bacteria Rare HPF (Negative); C & S Indicated? No; Casts Negative LPF (Negative); Crystals Negative HPF (Negative); Epithelial Cells Rare HPF (Negative); Mucus Trace (Negative); Other Cells Negative (Negative); RBC Negative (0-2); WBC 0-2 HPF (0-5)
[2018-11-13] MEDS: Atorvastatin 20 MG TAB PO (21:46)
[2018-11-13] MEDS: Gabapentin 100 MG CAP 200 MG PO (21:46)
[2018-11-14] VITALS (13 sets, daily range): BP systolic 135–168; BP diastolic 61–77; PULSE 62–82; RESP 16–21; TEMP 36.4–37.1; O2SAT 93–100
[2018-11-14] MEDS: Levothyroxine 25 MCG TAB PO (06:04)
[2018-11-14] MEDS: Heparin 5,000 UNITS/ML VIAL 5000 UNITS SC ×3 (06:04→19:57)
[2018-11-14 08:18] LABS: Abs Immature Grans 0.01 k/cumm (0.0-0.09); Absolute Basophil Count 0.05 k/cumm (0.0-0.2); Absolute Eosinophil Count 0.45 k/cumm (0.0-0.7); Absolute Lymphocyte Count 1.61 k/cumm (1.2-3.4); Absolute Neutrophil Count 4.21 k/cumm (1.2-6.7); Basophils % 0.7; Eosinophils % 6.1; HCT 32.3 % (36.0-46.0); HGB 10.9 g/dL (12.0-15.5); Immature Grans % 0.1; Lymphocytes % 21.7; Mean Corp. HGB Concentration 33.7 g/dL (32.0-36.0); Mean Corpuscular Hemoglobin 30.7 pg (27.0-33.0); Mean Platelet Volume 10.8 fL (8.0-11.0); Monocytes % 14.8; Neutrophils % 56.6; Platelet Count 276 x1000/uL (130-400); RBC 3.55 m/cumm (4.00-5.20); RBC Distribution Width 15.3 % (11.7-14.6); White Blood Cell Count 7.43 k/cumm (4.4-10.8)
[2018-11-14 08:31] LABS: Anion Gap 10.3 mmol/L (3-11); BUN 30 mg/dL (7-18); CO2 24.7 mmol/L (21.0-32.0); CREATININE 2.75 mg/dL (0.55-1.02); Calcium 9.4 mg/dL (8.5-10.1); Chloride 101 mmol/L (98-107); Estimated GFR 17.06 (mL/min/1.73m2); Glucose 105 mg/dL (70-100); Magnesium 1.7 mg/dL (1.8-2.4); Potassium 4.1 mmol/L (3.5-5.1); Sodium 136 mmol/L (136-145)
[2018-11-14] MEDS: amLODIPine 10 MG TAB PO (08:33)
[2018-11-14] MEDS: Aspirin E.C. 81 MG TABEC PO (08:33)
[2018-11-14] MEDS: Labetalol 100 MG TAB 450 MG PO ×2 (08:33→19:57)
[2018-11-14] MEDS: Magnesium Oxide 400 MG TAB PO (11:41)
--- NOTE | 2018-11-14 18:24 | W.PM.PROGNOT ---
Date of Service Date of service: 11/14/18 Time of Service: 18:24 Assessment and Plan (1) Fever: Current visit: Yes Status: Acute CXR with potential infiltrates. Patient has had multiple and recent hospitalizations, but had been hospitalized for less than 48 hours at time of discovery. Appears to have improved with initiation of antibiotics - continue renally dosed IV Levofloxacin day #2, and monitor temperature and vitals carefully. Patient is not complaining of cough or sputum production at this time. (2) Hypertensive emergency: Current visit: Yes Status: Acute Prior history of uncontrolled hypertension, with past episodes of Hypertensive Urgency/Emergency. Current blood pressure has stabilized at home values - also with a history of significant and symptomatic hypotension. Will aim for fair but not tight control while hospitalized here. Remains stable off Nicardipine gtt. Continue CCB, BB, and long-acting Nitrate. Current blood pressure is acceptable with systolic values in the 130-160's range. Remains off lasix gtt since 11/13. (3) Acute kidney injury superimposed on chronic kidney disease: Current visit: Yes Status: Acute Current creatinine worsening in setting of active diuresis. Also with evidence of L>R pleural effusions. In setting of worsening renal function and potential infiltrates as cause of hypoxia, will hold Lasix drip and monitor closely. Avoid Nephrotoxins, and renally dose medications when appropriate. Current clearance calculated at 13. (4) CKD (chronic kidney disease): Current visit: No Status: Chronic Stage IV CKD. (5) Congestive heart failure: Current visit: No Status: Deleted Noted EF 30%, improved to 54% in August of this year. Flash Pulmonary Edema and effusions in setting of Hypertensive Emergency. Diuresis discontinued yesterday. Continue to monitor volume status, daily weights. (6) Abdominal aortic aneurysm (AAA) without rupture: Current visit: No Status: Chronic Noted. Continue BB, ASA, and statin therapy. (7) Advance directive on file: Current visit: Yes Status: Acute Full Code. (8) DVT prophylaxis: Current visit: Yes Status: Acute Changed SC Enoxaparin to Heparin. Subjective Interval history since last seen: 68 year old woman with a history of Renal Artery Stenosis and prior Hypertensive Emergency with Flash Pulmonary Edema, admitted from [facility] Emergency Department with a diagnosis of Hypertensive Emergency. Mrs. Harmon has a Past Medical History significant for CKD Stage 4, HTN, AAA, and Hypothyroidism. She was found to have Renal Artery Stenosis, for which she underwent a right sided Bypass in August of this year. There is mention of an acute Hepatitis B infection in the past, for which she underwent treatment. She has had prior episodes of Flash Pulmonary Edema in the setting of Hypertensive Emergency. Her other history includes CHF, with LVEF originally at 30% improved to 54% by recent ECHO. The patient initially presented to the ED with complaints of acute onset dyspnea, noted to be in respiratory distress and requiring BiPAP therapy. She was also diuresed prior to being referred for admission. This morning Mrs. Harmon reports continued improvement compared to her initial presentation, now at '95%' of her baseline and maintaining her sats on room air. Her renal function had worsened previously, now remains stable and unchanged. She was also noted to be febrile on the morning of 11/13, and in review of her vitals it appears that she was febrile at time of admission as well. Her urinalysis was negative, but CXR showed evidence of bilateral pleural effusions as well as bibasilar infiltrates. She reports improvement with introduction of antibiotics. No other events reported. Exam Narrative Exam Narrative: General: Patient appears comfortable, AAOX3, NAD Neck: Supple CV: Regular, nontachycardic, S1S2, No rubs, murmurs, or gallops. Pulmonary: Decreased bibasilar breath sounds L>R, with crackles, but improved since yesterday. No wheezing. Abdomen: + Bowel Sounds, soft, nontender, nondistended Vascular: No lower extremity edema Psych: Normal mood and affect. Objective Objective Clinical Data: Abnormal lab results 11/13/18 11/14/18 11/14/18 Range/Units 18:20 07:56 07:56 RBC 3.55 L (4.00-5.20) m/cumm Hgb 10.9 L (12.0-15.5) g/dL Hct 32.3 L (36.0-46.0) % RDW 15.3 H (11.7-14.6) % Absolute Monocytes 1.10 H (0.11-0.7) k/cumm BUN 30 H (7-18) mg/dL Creatinine 2.75 H (0.55-1.02) mg/dL Glucose 105 H (70-100) mg/dL Magnesium 1.7 L (1.8-2.4) mg/dL Urine Protein 100 H (Negative) mg/dL Vital Signs Temperature 37.1 C 11/14/18 15:55 Temperature Source Tympanic 11/14/18 15:55 Pulse 71 11/14/18 15:55 Pulse Rhythm Regular 11/14/18 14:42 Pulse 73 11/14/18 00:20 Respiratory Rate 17 11/14/18 15:55 Respiratory Effort 11/14/18 14:42 Respiratory Depth Normal 11/14/18 14:42 Respiratory Pattern Normal 11/14/18 14:42 Blood Pressure 159/71 H 11/14/18 15:55 Blood Pressure Mean 91 11/14/18 00:01 Blood Pressure Position Supine 11/13/18 16:35 Pulse Oximetry 93 L 11/14/18 15:55 Oxygen Delivery Method Room Air 11/14/18 15:55 Oxygen Flow Rate 0 11/14/18 15:55 Fraction of Inspired Oxygen (FIO2) 40 11/11/18 02:30 Pain Level 0 11/14/18 15:55 Comment 11/10/18 23:36 Intake & Output 11/13/18 11/14/18 11/14/18 23:59 11:59 23:59 Intake Total 830 / 830 480 / 1020 540 / 1020 Output Total 400 / 1825 350 / 350 Balance 430 / -995 130 / 670 540 / 670 Intake: IV 150 / 150 Oral 680 / 680 480 / 1020 540 / 1020 Output: Urine 400 / 1825 350 / 350 Other: Urine Color Pale Yellow Urine Appearance Clear Clear Clear Urine Odor None Voiding Methods Bedside Commode Laboratory Results WBC 7.43 k/cumm (4.4-10.8) 11/14/18 07:56 RBC 3.55 m/cumm (4.00-5.20) L 11/14/18 07:56 Hgb 10.9 g/dL (12.0-15.5) L 11/14/18 07:56 Hct 32.3 % (36.0-46.0) L 11/14/18 07:56 MCV 91.0 fL (80-95) 11/14/18 07:56 MCH 30.7 pg (27.0-33.0) 11/14/18 07:56 MCHC 33.7 g/dL (32.0-36.0) 11/14/18 07:56 RDW 15.3 % (11.7-14.6) H 11/14/18 07:56 Plt Count 276 x1000/uL (130-400) 11/14/18 07:56 MPV 10.8 fL (8.0-11.0) 11/14/18 07:56 Immature Gran % 0.1 11/14/18 07:56 56.6 11/14/18 07:56 21.7 11/14/18 07:56 14.8 11/14/18 07:56 6.1 11/14/18 07:56 0.7 11/14/18 07:56 Absolute Neutrophils 4.21 k/cumm (1.2-6.7) 11/14/18 07:56 Absolute Lymphocytes 1.61 k/cumm (1.2-3.4) 11/14/18 07:56 Absolute Monocytes 1.10 k/cumm (0.11-0.7) H 11/14/18 07:56 Absolute Eosinophils 0.45 k/cumm (0.0-0.7) 11/14/18 07:56 Absolute Basophils 0.05 k/cumm (0.0-0.2) 11/14/18 07:56 PT 10.5 sec (9.3-11.0) 11/10/18 23:45 INR 1.1 (0.9-1.1) 11/10/18 23:45 APTT 21.9 sec (21.0-31.4) 11/10/18 23:45 Sodium 136 mmol/L (136-145) 11/14/18 07:56 Potassium 4.1 mmol/L (3.5-5.1) D 11/14/18 07:56 Chloride 101 mmol/L (98-107) 11/14/18 07:56 Carbon Dioxide 24.7 mmol/L (21.0-32.0) 11/14/18 07:56 10.3 mmol/L (3-11) 11/14/18 07:56 BUN 30 mg/dL (7-18) H 11/14/18 07:56 2.75 mg/dL (0.55-1.02) H 11/14/18 07:56 17.06 (mL/min/1.73m2) 11/14/18 07:56 Glucose 105 mg/dL (70-100) H 11/14/18 07:56 0.7 mmol/l (0.6-1.4) 11/10/18 23:45 Calcium 9.4 mg/dL (8.5-10.1) 11/14/18 07:56 Magnesium 1.7 mg/dL (1.8-2.4) L 11/14/18 07:56 0.6 mg/dL (0.2-1.0) 11/10/18 23:45 AST 19 U/L (15-37) 11/10/18 23:45 ALT 17 U/L (12-78) 11/10/18 23:45 77 U/L (46-116) 11/10/18 23:45 < 0.05 ng/mL (0.00-0.06) 11/11/18 06:08 NT-Pro-B Natriuret Pep 53890 pg/mL (-299) H 11/11/18 06:08 7.4 g/dL (6.4-8.2) 11/10/18 23:45 3.8 g/dL (3.4-5.0) 11/10/18 23:45 Yellow (Yellow) 11/13/18 18:20 Clear (Clear) 11/13/18 18:20 6.5 (5-8) 11/13/18 18:20 Ur Specific [place] 1.015 (1.005-1.025) 11/13/18 18:20 100 mg/dL (Negative) H 11/13/18 18:20 Negative mg/dL (Negative) 11/13/18 18:20 Negative (Negative) 11/13/18 18:20 Negative (Negative) 11/13/18 18:20 Negative (Negative) 11/13/18 18:20 0.2 EU/dL (Up TO 0.2) 11/13/18 18:20 Ur Leukocyte Esterase Negative (Negative) 11/13/18 18:20 Negative (0-2) 11/13/18 18:20 0-2 HPF (0-5) 11/13/18 18:20 Ur Epithelial Cells Rare HPF (Negative) 11/13/18 18:20 Negative HPF (Negative) 11/13/18 18:20 Rare HPF (Negative) 11/13/18 18:20 Negative LPF (Negative) 11/13/18 18:20 Trace (Negative) 11/13/18 18:20 Negative (Negative) 11/13/18 18:20 Ur Culture Indicated? No 11/13/18 18:20 Negative mg/dL (Negative) 11/13/18 18:20
--- NOTE | 2018-11-14 18:35 | CMPROGNOTE_ITS ---
Care Management Progress Note S/O:Charlene was lying in bed watching TV when CM came into her room. She remains pleasant and was smiling and more talkative today. She stated she was again disappointed that she would not be able to go home today. A: Charlene is a 68 year old woman admitted to [facility] on 11/11/18 with a diagnosis of Hypertensive emergency. P: Charlene will return home when medically cleared for discharge. Anticipate no additional services at time of discharge. Spouse will transport by car.
[2018-11-14] MEDS: Atorvastatin 20 MG TAB PO (21:36)
[2018-11-14] MEDS: Gabapentin 100 MG CAP 200 MG PO (21:37)
[2018-11-15] VITALS: BP 160/71; PULSE 70; O2SAT 94
[2018-11-15] MEDS: Heparin 5,000 UNITS/ML VIAL 5000 UNITS SC ×2 (03:48→11:27)
[2018-11-15 03:58] VITALS: BP 160/71; PULSE 73; RESP 17; TEMP 36.8; O2SAT 94
[2018-11-15] MEDS: Levothyroxine 25 MCG TAB PO (06:06)
[2018-11-15 07:01] VITALS: PULSE 66
[2018-11-15 07:55] VITALS: PULSE 64
[2018-11-15 07:56] VITALS: BP 178/68; PULSE 63; RESP 17; TEMP 36.8; O2SAT 94
[2018-11-15 07:56] LABS: Abs Immature Grans 0.01 k/cumm (0.0-0.09); Absolute Basophil Count 0.04 k/cumm (0.0-0.2); Absolute Eosinophil Count 0.62 k/cumm (0.0-0.7); Absolute Lymphocyte Count 1.83 k/cumm (1.2-3.4); Absolute Monocyte Count 0.94 k/cumm (0.11-0.7); Absolute Neutrophil Count 3.35 k/cumm (1.2-6.7); Basophils % 0.6; Eosinophils % 9.1; HGB 11.3 g/dL (12.0-15.5); Immature Grans % 0.1; Mean Corp. HGB Concentration 34.2 g/dL (32.0-36.0); Mean Corpuscular Volume 90.7 fL (80-95); Monocytes % 13.8; Neutrophils % 49.4; Platelet Count 271 x1000/uL (130-400); RBC 3.64 m/cumm (4.00-5.20); RBC Distribution Width 15.1 % (11.7-14.6); White Blood Cell Count 6.79 k/cumm (4.4-10.8)
[2018-11-15] MEDS: Labetalol 100 MG TAB 450 MG PO (08:02)
[2018-11-15] MEDS: amLODIPine 10 MG TAB PO (08:02)
[2018-11-15] MEDS: Aspirin E.C. 81 MG TABEC PO (08:03)
[2018-11-15 08:14] LABS: Anion Gap 13.6 mmol/L (3-11); BUN 28 mg/dL (7-18); CO2 22.4 mmol/L (21.0-32.0); CREATININE 2.78 mg/dL (0.55-1.02); Calcium 9.6 mg/dL (8.5-10.1); Chloride 102 mmol/L (98-107); Estimated GFR 16.84 (mL/min/1.73m2); Glucose 97 mg/dL (70-100); Magnesium 1.9 mg/dL (1.8-2.4); Potassium 3.5 mmol/L (3.5-5.1); Sodium 138 mmol/L (136-145)
--- NOTE | 2018-11-15 10:17 | CMPROGNOTE_ITS ---
Care Management Progress Note S/O: Charlene remains pleasant in interaction, she was lying in bed and reported feeling cold this morning. CM turned the heat up in her room and offered a heated blanket. [place] [facility] [place] stating she had eaten a high salt meal resulting in hypertensive emergency and pulmonary edema. Charlene reported meeting with Nutrition at [facility] previously and having books at home her daughter purchased with low sodium food options. Charlene was uninterested in meeting with Palliative Care at this time, and did remember discussing with this check writer salesperson previously. CM continues to follow. A: Charlene is a 68 year old woman admitted to [facility] on 11/11/18 with a diagnosis of Hypertensive emergency. P: Charlene will return home when medically cleared for discharge. Anticipate no additional services at time of discharge. She will transport via private vehicle with her .
[2018-11-15 10:39] LABS: NT-proBNP 14599 pg/mL
[2018-11-15 11:03] VITALS: BP 146/66; PULSE 66; RESP 16; TEMP 36.4; O2SAT 94
[2018-11-15] MEDS: levoFLOXacin 500 MG/100 ML BAG 100 MG IVPB (11:29)
[2018-11-15] MEDS: Normal Saline Flush 10 ML SYR IVP (11:29)
--- NOTE | 2018-11-15 13:31 | W.PM.DS.N ---
Date of service: 11/15/18 Time of Service: 13:31 DS: Diagnosis Discharge Diagnosis (1) Fever: Status: Acute (2) Hypertensive emergency: Status: Acute (3) Acute kidney injury superimposed on chronic kidney disease: Status: Acute (4) CKD (chronic kidney disease): Status: Chronic (5) Congestive heart failure: Status: Deleted (6) Abdominal aortic aneurysm (AAA) without rupture: Status: Chronic (7) Advance directive on file: Status: Acute Discharge Plan Disposition Patient Disposition: HOME Condition: Stable Discharge Details Chief Complaint: SOB Clinical Impression: Hypertensive emergency, Pulmonary edema Reason For Visit: PULMONARY EDEMA, HYPERTENSIVE EMERGENCY Admit Date/Time: 11/11/18 00:36 Admit Provider: Ye Vasquez Attending Provider: Ye Vasquez Primary Care Provider: Sanjuanita Lee ED Provider: Brent Lang Hospital Course Hospital Course: Chief Complaint: Dyspnea HPI: 68 year old woman with a history of Renal Artery Stenosis and prior Hypertensive Emergency with Flash Pulmonary Edema, admitted from [facility] Emergency Department with a diagnosis of Hypertensive Emergency. Mrs. Harmon has a Past Medical History significant for CKD Stage 4, HTN, AAA, and Hypothyroidism. She was found to have Renal Artery Stenosis, for which she underwent a right sided Bypass in August of this year. There is mention of an acute Hepatitis B infection in the past, for which she underwent treatment. She has had prior episodes of Flash Pulmonary Edema in the setting of Hypertensive Emergency. Her other history includes CHF, with LVEF originally at 30% improved to 54% by recent ECHO. The patient initially presented to the ED with complaints of acute onset dyspnea, noted to be in respiratory distress and requiring BiPAP therapy. She was also diuresed prior to being referred for admission. This morning Mrs. Harmon reports continued improvement compared to her initial presentation, now appears at or near her baseline from a respiratory standpoint, and maintaining her sats on room air. Her renal function had worsened previously, now remains stable and unchanged, but above her baseline. She was also noted to be febrile on the morning of 11/13, and in review of her vitals it appears that she was febrile at time of admission as well. Her urinalysis was negative, but CXR showed evidence of bilateral pleural effusions as well as bibasilar infiltrates. She reports improvement with introduction of antibiotics. No other events reported. She has remained afebrile. Hospital Course: (1) Fever: CXR with potential infiltrates. Patient has had multiple and recent hospitalizations, but had been hospitalized for less than 48 hours at time of discovery. Appears to have improved with initiation of antibiotics - was maintained on renally dosed IV Levofloxacin day #3 today. Plan will be to continue on oral formulation until completion. She has remained afebrile since addition of antibiotics, and come off Oxygen therapy. (2) Hypertensive emergency: Prior history of uncontrolled hypertension, with past episodes of Hypertensive Urgency/Emergency. Current blood pressure has stabilized at home values - also with a history of significant and symptomatic hypotension in the recent past. Aim for fair but not tight control while hospitalized here. Remains stable off Nicardipine gtt and on home regimen. Continue CCB, BB, and long-acting Nitrate. Current blood pressure is acceptable with systolic values in the 140-160's range mostly. Remains off lasix gtt since 11/13. Of note, patient was maintained on 450mg of Labetolol twice daily (home dose 300) - will discharge on 400mg Twice daily dosing with careful monitoring of blood pressure and heart rate at home. (3) Acute kidney injury superimposed on chronic kidney disease: Current creatinine worsening in setting of active diuresis. Also with evidence of L>R pleural effusions. In setting of worsening renal function and potential infection as cause of hypoxia, held Lasix drip starting 2 days ago. Creatinine did not rise any further, has been stable at 2.7 since. Discussed with [facility] Nephrology who reports that given patient's degree of kidney dysfunction it will likely take time for her renal function to improve - okay for discharge with repeat BMP in a few days to ensure stability and improvement. Also, per note from Nephrology clinic earlier this month, Mrs. Harmon's creatinine was 2.7 then as well, which is reassuring. Continue to avoid Nephrotoxins, and renally dose medications when appropriate. Current clearance calculated at 13. (4) CKD (chronic kidney disease): Stage IV CKD. (5) Congestive heart failure: Noted EF 30%, improved to 54% in August of this year. Flash Pulmonary Edema and effusions in setting of Hypertensive Emergency. Diuresis discontinued on 11/13, but patient required lasix gtt initially. Continue to monitor volume status, daily weights. Of note, patient's Blood pressure are elevated at baseline, and she reports high salt load on the night prior to her admission. (6) Abdominal aortic aneurysm (AAA) without rupture: Noted. Continue BB, ASA, and statin therapy. (7) Advance directive on file: Full Code. (8) DVT prophylaxis: Was maintained on SC Heparin. Home Meds and New Rx's Prescriptions: New labetalol 200 mg tablet 400 mg PO BID Qty: 120 RF: 0 levofloxacin 500 mg tablet 500 mg PO Q48H Qty: 2 RF: 0 Continued gabapentin 100 mg capsule 200 mg PO HS RF: 0 levothyroxine 25 mcg capsule 25 mcg PO DAILY RF: 0 aspirin [Aspir-81] 81 MG tablet,delayed release (DR/EC) 81 mg PO DAILY RF: 0 amlodipine 10 mg tablet 10 mg PO DAILY RF: 0 clonidine HCl 0.1 mg tablet 0.1 mg PO PRN RF: 0 atorvastatin 20 mg tablet 20 mg PO QHS RF: 0 isosorbide mononitrate 30 mg tablet extended release 24 hr 90 mg PO DAILY RF: 0 sodium bicarbonate 650 mg tablet 1,300 mg PO BID RF: 0 acetaminophen [Tylenol] 325 mg Tablet 650 mg PO Q6H PRN PRNQty: 0 RF: 0 Discontinued labetalol 300 mg tablet 300 mg PO BID RF: 0 Discharge Instructions Stand Alone Forms: Nursing Discharge Form Referrals: Sanjuanita Lee MD [Primary Care Provider] - 11/23/18 12:00 pm Activity:: No Strenuous Activity Equipment/Supplies:: No Equipment Needed Diet:: Low Sodium Discharge Orders Discharge Orders: Discharge Order (Routine); Ordered 11/15/18 Ordered By: Yasmany Lake Other Ambulatory Orders: Basic Metabolic Panel (Routine) Timeframe: 3 Days Location: None Selected Ordered By: Yasmany Lake DS: Data Vitals/I&O Vitals and I&O: Vital Signs Temperature 36.4 C L 11/15/18 11:03 Temperature Source Tympanic 11/15/18 11:03 Pulse 66 11/15/18 11:03 Pulse Rhythm Regular 11/15/18 11:54 Pulse 73 11/14/18 00:20 Respiratory Rate 16 11/15/18 11:03 Respiratory Effort 11/15/18 11:54 Respiratory Depth Normal 11/15/18 11:54 Respiratory Pattern Normal 11/15/18 11:54 Blood Pressure 146/66 H 11/15/18 11:03 Blood Pressure Mean 91 11/14/18 00:01 Blood Pressure Position Supine 11/13/18 16:35 Pulse Oximetry 94 L 11/15/18 11:03 Oxygen Delivery Method Room Air 11/15/18 11:03 Oxygen Flow Rate 0 11/15/18 11:03 Fraction of Inspired Oxygen (FIO2) 40 11/11/18 02:30 Pain Level 0 11/15/18 11:03 Comment 11/10/18 23:36 Intake & Output 11/14/18 11/15/18 11/15/18 23:59 11:59 23:59 Intake Total 540 / 1020 340 / 340 Balance 540 / 670 340 / 340 Weight 41.1 kg Intake: IV 100 / 100 Oral 540 / 1020 240 / 240 Other: Urine Appearance Clear Clear Completed studies during hospitalization [Text1]: Exam(s) 11/10/2018 a RAD:XR portable chest AP SYMPTOM/DIAGNOSIS: SHORTNESS OF BREATH PORTABLE SEMI-ERECT UPRIGHT CHEST: Increased interstitial markings are noted in the lungs. No gross localized pulmonary infiltrate is seen. There may be a very small right pleural effusion. Cardiomegaly is identified. SUMMARY: Findings most consistent with congestive failure -------- Exam(s) 11/13/2018 a RAD:XR chest 2V PA & lateral SYMPTOM/DIAGNOSIS: FEVER CHEST X-RAY: Frontal and lateral views. Comparison 11/10/18 Heart size is within normal limits as is the pulmonary vasculature. There are bilateral pleural effusions which are small, left greater than right. Bilateral basilar infiltrates are seen, left greater than right. No pneumothorax is identified. Age related degenerative changes are see in the spine. The lungs do appear to be hyperinflated suggesting underlying COPD. IMPRESSION: Bilateral pleural effusions and basilar infiltrates, left greater than right. --------- Labs on day of discharge: Labs from last 24 hours 11/15/18 11/15/18 11/15/18 07:07 07:07 07:07 WBC 6.79 RBC 3.64 L Hgb 11.3 L Hct 33.0 L MCV 90.7 MCH 31.0 MCHC 34.2 RDW 15.1 H Plt Count 271 MPV 11.0 Immature Gran % 0.1 Neutrophils % 49.4 Lymphocytes % 27.0 Monocytes % 13.8 Eosinophils % 9.1 Basophils % 0.6 Absolute Neutrophils 3.35 Absolute Lymphocytes 1.83 Absolute Monocytes 0.94 H Absolute Eosinophils 0.62 Absolute Basophils 0.04 Sodium 138 Potassium 3.5 Chloride 102 Carbon Dioxide 22.4 Anion Gap 13.6 H BUN 28 H Creatinine 2.78 H Estimated GFR/1.73 m2 16.84 Glucose 97 Calcium 9.6 Magnesium 1.9 NT-Pro-B Natriuret Pep 19478 H [facility] Medical History Abdominal aortic aneurysm (AAA) without rupture (Chronic 01/04/16) 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) Cardiomyopathy (Chronic) CKD (chronic kidney disease) (Chronic) Creatinine elevation (Inactive) Hearing loss (Chronic) Hepatitis B (Chronic 02/24/13) High blood cholesterol (Chronic) HTN (hypertension) (Chronic) Jaundice (Inactive 02/28/13) 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) Renal artery stenosis (Chronic) Renovascular hypertension (Chronic) Surgical History Bilateral salpingectomy with oophorectomy (Chronic) Colonoscopy - MAC (Resolved 09/27/12) EGD W/ BS (Resolved 08/12/12) Hysterectomy, Laproscopic (Chronic ~01/1984) Status post surgery (Acute 09/07/18) Family History Grandmother Essential hypertension Social History Smoking/Tobacco Use Status: Former Tobacco Use Alcohol Intake: never Drug use: Never Substance use type: does not use Foster care: No Household members: spouse Housing: house Number of Children: 2 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
== END 2018-11-15 15:45 | disposition home or self-care (01) | DRG 304 ==
LOC: ER 11-11 00:54 → ICU 11-11 01:48 → MS 11-15 13:18 → ICU 11-17 12:58
PROVIDERS: Internal Medicine; Admitting Provider Internal Medicine; Emergency Provider Emergency Medicine; PCP Internal Medicine; Visit Provider Internal Medicine
DX: I16.1 Hypertensive emergency (principal); J96.01 Acute respiratory failure with hypoxia; I50.23 Acute on chronic systolic (congestive) heart failure; N17.9 Acute kidney failure, unspecified; N18.4 Chronic kidney disease, stage 4 (severe); I50.1 Left ventricular failure, unspecified; I16.0 Hypertensive urgency; R50.9 Fever, unspecified; I70.1 Atherosclerosis of renal artery; E03.9 Hypothyroidism, unspecified; R91.8 Other nonspecific abnormal finding of lung field; I13.0 Hypertensive heart and chronic kidney disease with heart failure and stage 1 through stage 4 chronic kidney disease, or unspecified chronic kidney disease; I15.0 Renovascular hypertension
CPT/HCPCS: 36415; 80048; 80053; 93005; 96365; 96366; 96375; 99223; 99232; 99233; 99239; 99291; 71045; 71046; 81003; 81015; 83605; 83735; 83880; 84484; 85025; 85610; 85730; 93010; J1644; J1650; J1940; J1956; J3490

== ENCOUNTER 2018-11-18 08:17 | Outpatient (CLI) | payer MEDICARE, BC, SELFPAY ==
[2018-11-18 09:29] LABS: BUN 36 mg/dL (7-18); CREATININE 2.91 mg/dL (0.55-1.02); Calcium 9.3 mg/dL (8.5-10.1); Chloride 103 mmol/L (98-107); Estimated GFR 15.98 (mL/min/1.73m2); Glucose 97 mg/dL (70-100); Potassium 3.4 mmol/L (3.5-5.1); Sodium 139 mmol/L (136-145)
== END 2018-11-18 08:37 ==
PROVIDERS: Internal Medicine; PCP Internal Medicine; Visit Provider Internal Medicine
DX: N18.4 Chronic kidney disease, stage 4 (severe) (principal)
CPT/HCPCS: 36415; 80048

== ENCOUNTER 2018-11-19 01:46 | Outpatient (CLI) | payer MEDICARE, BC, SELFPAY ==
--- NOTE | 2018-11-19 15:42 | DI.MAMMO_ITS ---
SYMPTOMS/DIAGNOSIS: SCREENING, Z12.31 BILATERAL SCREENING MAMMOGRAM: Mammograms were interpreted according to the usual protocol including computer analysis with CAD system, tomosynthesis and C view imaging. Comparison is made with exams from 2009 through 2016. The breasts are composed of extremely dense fibroglandular tissue, breast density category D. There has been interval decrease in breast size, presumably secondary to weight loss. No suspicious masses or suspicious microcalcifications are seen. There has been no significant change. IMPRESSION: Category 1, negative mammogram. Yearly screening mammography is recommended. [facility] [place] ASSESSMENT OF FINDINGS: Negative. Category 1. Patient will receive a letter notifying them of these results. BI-RADS category D. The breasts are extremely dense, which lowers the sensitivity of mammography.
== END 2018-11-19 02:06 ==
PROVIDERS: PCP Internal Medicine; Visit Provider Internal Medicine
DX: Z12.31 Encounter for screening mammogram for malignant neoplasm of breast (principal)
CPT/HCPCS: 77063; 77067

== ENCOUNTER 2018-12-06 22:37 | Inpatient (IN) | payer MEDICARE, BC, SELFPAY ==
[2018-12-06] VITALS (15 sets, daily range): BP systolic 166–184; BP diastolic 67–85; PULSE 71–89; RESP 10–24; O2SAT 67–98
--- NOTE | 2018-12-06 23:05 | DI.RAD_ITS ---
SYMPTOM/DIAGNOSIS: SOB, HYPOXIC PORTABLE AP CHEST: 12/06 The heart is enlarged. There are apparent small bilateral pleural effusions and diffuse bilateral pulmonary interstitial infiltrates. The findings are consistent with CHF. Other etiologies including infectious process not excluded. Appropriate follow up studies requested.
--- NOTE | 2018-12-06 23:05 | ED.GENADUL_ITS ---
Discharge Plan Disposition Patient Disposition: [facility] INPATIENT Condition: Poor Discharge Details Chief Complaint: SOB Clinical Impression: CKD (chronic kidney disease), Acute on chronic systolic (congestive) heart failure, Acute respiratory failure with hypoxia Admit Date/Time: 12/07/18 00:52 Admit Provider: Regan Monteiro Attending Provider: Akua Baugh Primary Care Provider: Sanjuanita Lee ED Provider: Mandy Bates Discharge Data Discharge Date/Time-TO BE ENTERED AT DEPARTURE: 12/07/18 01:43 Medical Decision Making Patient is a 68 year old female with hx of CKD, AAA, HTN, HLD, renal artery stenosis, hypothyroidism, presenting today with c/c of SOB. Patient has been admitted multiple times this year with flash pulmonary edema requiring BIPAP. Patient undewent right external iliac to right renal artery bypass on 09/07/18. Patient was last admitted on 11/12 at that time the pulmonary edema was thought to be secondary to dietary salt intake. Patient presents today in respiratory distress, tripoding, only speaking 1-2 words at a time. She does not appear anxious. Her is able to give a good history. She denies CP. No exertional CP. No history of CAD. Patient O2 65% on RA. Immediately placed on nonrebreather mask. This brought her up to 85-87%. She is feeling much improved. Crackles noted at bases bilaterally. She endorses cough. No fevers/chills, no recent cough. Denies recent travel, no recent abx. Patient is hypertensive at 166/74 which appears to be fairly baseline for the patient. She reports that yesterday she had a dietary change. Typically is very cognisent of amount of sodium. Yesterday ate crackers, pepporoni, hamburger. RLE edema, patient reports that this is chronic and unchanged. EKG reviewed by Dr. Ramos. Patient NSR, rate 82. T wave inversions noted, this is unchanged from previous. No acute ischemic changes. Patient given albuteral, this increased O2 into the 90s. Bipap started by RT, patient now in the mid 90s. She is tolerating this well. Patient given 40mg IV Lasix, 2mg IV morphine. Reviewed echo from 09/12 completed at [facility]. Notable for left ventricular hypertrophy, normal global left ventricular systolic function. EF 54%, no segmental wall motion abnormalities. Elevated left sided filling pressure. No hemodynamically significant valve disease. Patient was seen by nephrology at [facility] last week. At that time, patient had creatinine of 2.9. She was begun on sodium bicarbonate for non-anion gap metabolic acidosis. CXR reivewed by radiologist: FINDINGS: Lungs: Diffuse bilateral interstitial opacities. Pleural space: No pleural effusion or pneumothorax. Heart/Mediastinum: Cardiac and mediastinal silhouettes are unremarkable. Bones/joints: No acute osseus lesion or fracture. IMPRESSION: Diffuse bilateral interstitial opacities, which could reflect pulmonary interstitial edema. Labs significant for anemia, Hgb 9.9. Potassium 3..3, we will replenish this here. Anion gap 14.5. Creatinine 3.41, this is higher than baseline of 2.5. GFR 13. BNP 85682. ABG concerning for pO2 of 75.4 Patient is tolerating bipap well, speaking in full sentences. She reports she is feeling much improved. Will consult with hospitalist regarding admission for CHF, pulmonary edema, acute kidney injury. Spoke with hospitalist who agrees to admission. HPI General Mode of arrival: wheelchair . Date/Time Provider Initiated Documentation: 12/06/18 22:41 . Limitations to Documentation: no limitations . Information obtained by: patient, family ( speaking for patient, she is having difficulty secondary to SOB) and RN notes reviewed . HPI Narrative: Patient is a 68-year-old female presenting today, with history of chronic kidney disease, hypertension, hypertensive emergency, renovascular hypertension, CHF, is hyperlipidemia, the radiologist who read the CT scan of cirrhosis, abdominal aortic aneurysm without rupture. She is presenting with chief complaint of shortness of breath. She reports shortness of breath began mildly yesterday but greatly exacerbated this evening. Patient has had multiple episodes of flash pulmonary edema requiring 3 admissions this for this year. Patient was last admitted on 11/10/2018. Patient reports he does not feels that this time as she has in the past, does feel that it came on much quicker than had a historically. States that she has been following the physician's orders, take medications as prescribed. Her noted her to be hypertensive tonight and she took the PRN Klonopin as prescribed. She was recently seen by her hydroelectric station operator who felt that she was doing quite well. Patient is status post Related Data Home Medications Medication Instructions Recorded Confirmed aspirin [Aspir-81] 81 mg PO DAILY tab-cap 04/19/13 12/06/18 acetaminophen [Tylenol] 650 mg PO Q6H PRN PRN #0 tab 08/29/18 12/06/18 amlodipine 10 mg tablet 10 mg PO DAILY 10/08/18 12/06/18 atorvastatin 20 mg tablet 20 mg PO QHS 10/08/18 12/06/18 clonidine HCl 0.1 mg tablet 0.1 mg PO PRN tab 10/08/18 12/06/18 isosorbide mononitrate 30 mg 90 mg PO DAILY tab 10/08/18 12/06/18 tablet,extended release 24 hr gabapentin 100 mg capsule 200 mg PO HS cap 11/02/18 12/06/18 levothyroxine 25 mcg capsule 25 mcg PO DAILY 11/02/18 12/06/18 sodium bicarbonate 650 mg tablet 1,300 mg PO BID tab 11/11/18 12/06/18 labetalol 400 mg PO BID #120 tab 11/15/18 12/06/18 ferrous sulfate [Jessie-Time] 12/06/18 Previous Rx's Medication Instructions Recorded acetaminophen [Tylenol] 650 mg PO Q6H PRN PRN #0 tab 08/29/18 labetalol 400 mg PO BID #120 tab 11/15/18 Allergies Allergy/AdvReac Type Severity Reaction Status Date / Time lisinopril AdvReac Mild Rise in Verified 11/23/18 12:13 creatinine General Stated Complaint: SOB BILLY: 2 Review of Systems Constitutional Reports as per HPI, Denies chills, Denies fever(s), Denies headache(s), Denies lethargy and Denies poor appetite Eyes Denies change in vision ENT Denies dizziness and Denies headache(s) Cardiovascular Reports as per HPI, Denies chest pain, Denies chest pain at rest, Denies chest pain with activity, Denies diaphoresis, Denies syncope, Reports leg edema (right side, this is baseline), Denies lightheadedness, Reports dyspnea, Reports dyspnea on exertion and Reports orthopnea Respiratory Reports as per HPI, Denies chest congestion, Denies cough, Denies pain on inspiration, Denies pain with cough, Reports dyspnea, Reports dyspnea on exertion and Denies wheezing Gastrointestinal Reports as per HPI, Denies abdominal pain, Denies diarrhea, Denies nausea and Denies vomiting Musculoskeletal Reports as per HPI and Denies back pain Integumentary/Breasts Reports as per HPI and Denies rash Neurologic Reports as per HPI, Denies dizziness, Denies syncope and Denies headache(s) Allergic/Immunologic Denies wheezing [facility] Medical History Abdominal aortic aneurysm (AAA) without rupture (Chronic 01/04/16) Anemia (Chronic) 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) Cardiomyopathy (Chronic) CKD (chronic kidney disease) (Chronic) Creatinine elevation (Inactive) Hearing loss (Chronic) Hepatitis B (Chronic 02/24/13) High blood cholesterol (Chronic) HTN (hypertension) (Chronic) Jaundice (Inactive 02/28/13) 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) Renal artery stenosis (Chronic) Renovascular hypertension (Chronic) Surgical History Bilateral salpingectomy with oophorectomy (Chronic) Colonoscopy - MAC (Resolved 09/27/12) EGD W/ BS (Resolved 08/12/12) Hysterectomy, Laproscopic (Chronic ~01/1984) Status post surgery (Acute 09/07/18) Family History Grandmother Essential hypertension Social History Smoking/Tobacco Use Status: Former Tobacco Use Alcohol Intake: never Drug use: Never Substance use type: does not use Foster care: No Household members: spouse Housing: house Number of Children: 2 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: female What is your relationship status?: Panel score (0-1 are the most socially isolated patients): 1 What type of physical activity do you participate in: none Seatbelt use: always Drive intox or ride w/intox recycle driver: No Working smoke detector in home: Yes Fire extinguisher in home: Yes Carbon monox detector in home: Yes Do you feel safe at home: Yes Do you feel safe in your relationship?: Yes Exam Const General: cooperative, well developed and in distress respiratory Nutritional Appearance: average body habitus and well nourished Orientation: alert, awake and oriented x3 HENMT Head: normal to inspection Ears: hearing grossly normal bilaterally Mouth: moist mucous membranes Chest Chest: normal inspection of the chest, normal palpation of entire chest wall and no crepitus Resp Effort & Inspection: normal respiratory effort, not able to speak in complete sentences (speaking 1-2 words), no audible wheezes, no cough, no grunting, no nasal flaring, respiratory distress, no stridor, tachypneic, no tracheal deviation, tripod positioning and uses accessory muscles Auscultation: crackles bilaterally at the base, no rales, no rhonchi and no wheezes Cardio Rate: regular rate Rhythm: regular rhythm Heart Sounds: S1 normal and S2 normal GI Inspection: normal to inspection, no edema and non-distended Palpation: soft, no hepatosplenomegaly, not firm, no guarding, not rigid and nontender Auscultation: normal bowel sounds Back/Spine/Pelvis Back: no CVA tenderness Thoracic/Lumbar Spine: thoracic and lumbar spine normal to inspection Skin General skin exam: no rashes or lesions noted Trauma: no lacerations or abrasions Neuro General: alert, awake and oriented x3 Cognition: normal cognition Speech: speech normal Gait: normal gait Extrem General: normal to inspection, normal capillary refill, no calf tenderness and edema Laterality: right Psych Appearance: grossly normal and well kempt Mental Status: mental status grossly normal Speech and Movement: speech and movement normal Course Vital Signs Pulse 86 12/06/18 22:46 Respiratory Rate 18 12/06/18 22:46 Blood Pressure 166/74 H 12/06/18 22:46 Pulse Oximetry 67 L 12/06/18 22:46 Pulse 86 12/06/18 22:46 Respiratory Rate 18 12/06/18 22:46 Blood Pressure 166/74 H 12/06/18 22:46 Pulse Oximetry 67 L 12/06/18 22:46 Oxygen Delivery Method Room Air 12/06/18 22:46 Oxygen Flow Rate 0 12/06/18 22:46 Pain Level 0 12/06/18 22:46 Comment 12/06/18 22:46
[2018-12-06 23:15] LABS: Abs Immature Grans 0.02 k/cumm (0.0-0.09); Absolute Basophil Count 0.07 k/cumm (0.0-0.2); Absolute Eosinophil Count 1.08 k/cumm (0.0-0.7); Absolute Lymphocyte Count 1.65 k/cumm (1.2-3.4); Absolute Monocyte Count 0.78 k/cumm (0.11-0.7); Absolute Neutrophil Count 5.88 k/cumm (1.2-6.7); Basophils % 0.7; Eosinophils % 11.4; HGB 9.9 g/dL (12.0-15.5); Immature Grans % 0.2; Lymphocytes % 17.4; Mean Corp. HGB Concentration 34.1 g/dL (32.0-36.0); Mean Corpuscular Hemoglobin 30.6 pg (27.0-33.0); Mean Corpuscular Volume 89.5 fL (80-95); Mean Platelet Volume 10.2 fL (8.0-11.0); Monocytes % 8.2; Neutrophils % 62.1; Platelet Count 304 x1000/uL (130-400); RBC 3.24 m/cumm (4.00-5.20); RBC Distribution Width 14.7 % (11.7-14.6); White Blood Cell Count 9.48 k/cumm (4.4-10.8)
--- NOTE | 2018-12-06 23:17 | DI.VRAD_ITS ---
EXAM: XR Chest, 1 View EXAM DATE/TIME: 12/06/2018 11:06 PM CLINICAL HISTORY: 68 years old, female; Shortness of breath and other: Hypoxic; Patient HX: SOB, hypoxic TECHNIQUE: Imaging protocol: XR of the chest, 1 view. COMPARISON: CR XR CHEST 2V PA LATERAL 11/13/2018 10:03 AM FINDINGS: Lungs: Diffuse bilateral interstitial opacities. Pleural space: No pleural effusion or pneumothorax. Heart/Mediastinum: Cardiac and mediastinal silhouettes are unremarkable. Bones/joints: No acute osseus lesion or fracture. IMPRESSION: Diffuse bilateral interstitial opacities, which could reflect pulmonary interstitial edema. Dictated and Authenticated by: Conrad Villarreal MD. Ordering:EVARISTO Galvan MD
[2018-12-06] MEDS: Furosemide 40 MG/4 ML VIAL IVP (23:30)
[2018-12-06 23:36] LABS: Magnesium 1.9 mg/dL (1.8-2.4)
[2018-12-06 23:37] LABS: Troponin I < 0.05 ng/mL (0.00-0.06)
[2018-12-06 23:42] LABS: ALT 14 U/L (12-78); AST 17 U/L (15-37); Albumin 3.4 g/dL (3.4-5.0); Alkaline Phosphatase 72 U/L (46-116); Anion Gap 14.5 mmol/L (3-11); BUN 39 mg/dL (7-18); Bilirubin, Total 0.6 mg/dL (0.2-1.0); CO2 22.5 mmol/L (21.0-32.0); CREATININE 3.41 mg/dL (0.55-1.02); Chloride 96 mmol/L (98-107); Estimated GFR 13.31 (mL/min/1.73m2); Glucose 130 mg/dL (70-100); Potassium 3.3 mmol/L (3.5-5.1); Sodium 133 mmol/L (136-145); Total Protein 6.9 g/dL (6.4-8.2)
[2018-12-06 23:43] LABS: Anisocytosis 1+; Diff Comment Agrees w/ Instrument
[2018-12-06 23:44] LABS: INR 1.1 (0.9-1.1); Prothrombin Time 10.7 sec (9.3-11.0)
[2018-12-06 23:46] LABS: Hypochromasia 1+; Polychromasia Present
[2018-12-07] VITALS (64 sets, daily range): BP systolic 149–191; BP diastolic 66–81; PULSE 64–87; RESP 8–27; TEMP 34–36.9; O2SAT 77–98
[2018-12-07] MEDS: Potassium Chloride 20 MEQ TABCR PO (00:22)
[2018-12-07 00:24] LABS: BE -0.9 mmol/L (-3-3); HCO3 23 mmol/L (22-28); pCO2 35 mmHg (34-47); pH 7.43 (7.35-7.45); pO2 75 mmHg (83-108); sO2 95 % (94-98); tCO2 22 mmol/L (22-29)
[2018-12-07 00:26] LABS: FIO2 60 %; Site Left Radial
--- NOTE | 2018-12-07 01:07 | W.PM.HP.N ---
Date of service: 12/07/18 Time of Service: 01:08 Assessment and Plan (1) Acute on chronic systolic (congestive) heart failure: Start date: 12/06/18 Current visit: Yes Status: Acute This is a 68-year-old lady who presented to the ED with flash pulmonary edema after having increased salt intake at a dinner with family gathering. She is responding to IV Lasix and we will continue this with her usual cardiac meds along with BiPAP for respiratory support and hypoxemia. We will trend her troponins and gently IV hydrate her if needed for her acute exacerbation of CKD. For now will only have a saline lock for IV access. (2) Hypoxia: Start date: 12/06/18 Current visit: Yes Status: Acute We will continue BiPAP as needed with O2 supplementation. This should clear as she clears her acute CHF. (3) Acute kidney injury superimposed on chronic kidney disease: Start date: 12/06/18 Current visit: Yes Status: Acute Patient does have a bump in her creatinine and this should respond to diuresis and treatment of her CHF but if needed we will start gentle IV hydration. (4) Anemia: Current visit: Yes Status: Chronic Patient has had chronic anemia but this is slightly exacerbated presently. She is on supplements. Does have CKD and eventually may be a candidate for erythropoietin treatment. Qualifiers: Anemia type: due to chronic kidney disease Chronic kidney disease stage: stage 3 (moderate) Qualified Code(s): N18.3 - Chronic kidney disease, stage 3 (moderate); D63.1 - Anemia in chronic kidney disease History of Present Illness Chief Complaint: Acute onset shortness of breath. Narrative: This is a 76-year-old lady with known CKD and diastolic dysfunction CHF with renal artery stenosis bypass in the past which has stabilized some of her cardiovascular instabilities with frequent hospitalizations for CHF. She recently had a family gathering and had increased salt intake which resulted in flash pulmonary edema requiring BiPAP in the ED today. She did report to the ED with sudden onset of shortness of breath and severe hypoxemia. She stabilized quickly on BiPAP with IV Lasix. In the ED she diuresed but continued to have tachypnea and crackles on her lung findings. She also was contining to require BiPAP. I did review her ED report and she has a history of an echocardiogram with an ejection fraction at 54% which is reasonable. Chest x-ray did reveal pulmonary edema. She denied any chest pain or palpitations during the episode. She denies any recent cough or URI symptoms. She has had no GI or symptoms. This episode appears to be a consequence of her recent diet change which has happened in the past. Review of Systems Review of Systems 13 point review of systems otherwise unrevealing or stable. 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) Renal artery stenosis (Chronic) Renovascular hypertension (Chronic) Surgical History Bilateral salpingectomy with oophorectomy (Chronic) Colonoscopy - MAC (Resolved 09/27/12) EGD W/ BS (Resolved 08/12/12) Hysterectomy, Laproscopic (Chronic ~01/1984) Status post surgery (Acute 09/07/18) Family History Grandmother Essential hypertension Social History Smoking/Tobacco Use Status: Former Tobacco Use Alcohol Intake: never Drug use: Never Substance use type: does not use Foster care: No Household members: spouse Housing: house Number of Children: 2 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 Current gender identity: female What is your relationship status?: Panel score (0-1 are the most socially isolated patients): 1 What type of physical activity do you participate in: none Seatbelt use: always Drive intox or ride w/intox services delivery driver: No Working smoke detector in home: Yes Fire extinguisher in home: Yes Carbon monox detector in home: Yes Do you feel safe at home: Yes Do you feel safe in your relationship?: Yes Meds Home Medications Medication Instructions Recorded Confirmed Type aspirin [Aspir-81] 81 mg PO DAILY tab-cap 04/19/13 12/06/18 History acetaminophen [Tylenol] 650 mg PO Q6H PRN PRN #0 tab 08/29/18 12/06/18 Rx amlodipine 10 mg tablet 10 mg PO DAILY 10/08/18 12/06/18 History atorvastatin 20 mg tablet 20 mg PO QHS 10/08/18 12/06/18 History clonidine HCl 0.1 mg tablet 0.1 mg PO PRN tab 10/08/18 12/06/18 History isosorbide mononitrate 30 mg 90 mg PO DAILY tab 10/08/18 12/06/18 History tablet,extended release 24 hr gabapentin 100 mg capsule 200 mg PO HS cap 11/02/18 12/06/18 History levothyroxine 25 mcg capsule 25 mcg PO DAILY 11/02/18 12/06/18 History sodium bicarbonate 650 mg tablet 1,300 mg PO BID tab 11/11/18 12/06/18 History labetalol 400 mg PO BID #120 tab 11/15/18 12/06/18 Rx ferrous sulfate [Jessie-Time] 12/06/18 History Allergies Allergy/AdvReac Type Severity Reaction Status Date / Time lisinopril AdvReac Mild Rise in Verified 11/23/18 12:13 creatinine Exam Narrative Exam Narrative: General: Patient is very thin and well-developed, in no acute distress and alert and oriented x3. She is wearing BiPAP but able to speak through the mask. She is darkly tanned diffusely. HEENT: Normocephalic with BiPAP mask in place, eyes with pupils equal and reactive to light symmetrically, extraocular movement intact and sclera anicteric. Oropharynx with dry oral mucosa and fair dentition. Neck: Supple without JVD. Back: Stooped posture without CVA tenderness. Lungs: Right upper single breath sounds diffusely with decreased aeration and coarse crackles over both bases 1/[address] up the back. No increased expiratory phase or expiratory wheeze. Heart: Regular rate and rhythm without murmurs gallops appreciated. Breast: Exam deferred. Abdomen: Scaphoid, soft and nontender to palpation without hepatosplenomegaly. Genitalia/rectal: Exam deferred. Extremities: Muscle atrophy diffusely with all joints and fair range of motion, no clubbing, cyanosis or edema. Skin: Slightly decreased turgor, thin and darkly tanned diffusely with actinic changes over sun exposed areas. Warm and dry. No rashes. Neuro: Cranial nerves II through XII grossly intact, no focalizing motor deficits. Results Imaging Imaging Studies: EXAM: XR Chest, 1 View EXAM DATE/TIME: 12/06/2018 11:06 PM CLINICAL HISTORY: 68 years old, female; Shortness of breath and other: Hypoxic; Patient HX: SOB, hypoxic TECHNIQUE: Imaging protocol: XR of the chest, 1 view. COMPARISON: CR XR CHEST 2V PA LATERAL 11/13/2018 10:03 AM FINDINGS: Lungs: Diffuse bilateral interstitial opacities. Pleural space: No pleural effusion or pneumothorax. Heart/Mediastinum: Cardiac and mediastinal silhouettes are unremarkable. Bones/joints: No acute osseus lesion or fracture. IMPRESSION: Diffuse bilateral interstitial opacities, which could reflect pulmonary interstitial edema. Dictated and Authenticated by: Conrad Villarreal MD. Labs : 12/06/18 22:55 12/06/18 22:55 Laboratory Results - last 24 hr 12/06/18 12/06/18 12/06/18 22:55 22:55 22:55 WBC RBC Hgb Hct MCV MCH MCHC RDW Plt Count MPV Immature Gran % Neutrophils % Lymphocytes % Monocytes % Eosinophils % Basophils % Absolute Neutrophils Absolute Lymphocytes Absolute Monocytes Absolute Eosinophils Absolute Basophils Differential Comment RBC Morphology Polychromasia Hypochromasia Anisocytosis PT 10.7 INR 1.1 APTT 24.0 Sample Site pCO2 pO2 O2 Saturation ABG pH ABG HCO3 ABG Total CO2 ABG Base Excess VBG pH VBG pCO2 VBG pO2 VBG HCO3 VBG Total CO2 VBG O2 Saturation VBG Base Excess FiO2 Sodium 133 L Potassium 3.3 L Chloride 96 L Carbon Dioxide 22.5 Anion Gap 14.5 H BUN 39 H Creatinine 3.41 H Estimated GFR/1.73 m2 13.31 Glucose 130 H Calcium 9.0 Magnesium 1.9 Total Bilirubin 0.6 AST 17 ALT 14 Alkaline Phosphatase 72 Troponin I < 0.05 NT-Pro-B Natriuret Pep 83883 H Total Protein 6.9 Albumin 3.4 12/06/18 12/06/18 12/07/18 22:55 23:40 00:13 WBC 9.48 RBC 3.24 L Hgb 9.9 L Hct 29.0 L MCV 89.5 MCH 30.6 MCHC 34.1 RDW 14.7 H Plt Count 304 MPV 10.2 Immature Gran % 0.2 Neutrophils % 62.1 Lymphocytes % 17.4 Monocytes % 8.2 Eosinophils % 11.4 Basophils % 0.7 Absolute Neutrophils 5.88 Absolute Lymphocytes 1.65 Absolute Monocytes 0.78 H Absolute Eosinophils 1.08 H Absolute Basophils 0.07 Differential Comment Agrees w/ instrument RBC Morphology See below Polychromasia Present Hypochromasia 1+ Anisocytosis 1+ PT INR APTT Sample Site Left radial pCO2 35 pO2 75 L O2 Saturation 95 ABG pH 7.43 ABG HCO3 23 ABG Total CO2 22 ABG Base Excess -0.9 VBG pH Cancelled VBG pCO2 Cancelled VBG pO2 Cancelled VBG HCO3 Cancelled VBG Total CO2 Cancelled VBG O2 Saturation Cancelled VBG Base Excess Cancelled FiO2 60 Sodium Potassium Chloride Carbon Dioxide Anion Gap BUN Creatinine Estimated GFR/1.73 m2 Glucose Calcium Magnesium Total Bilirubin AST ALT Alkaline Phosphatase Troponin I NT-Pro-B Natriuret Pep Total Protein Albumin Last Vital Signs Pulse 71 12/06/18 23:45 Resp 15 12/06/18 23:50 BP 182/79 H 12/06/18 23:45 Pulse Ox 97 12/06/18 23:50
[2018-12-07] MEDS: Labetalol 100 MG TAB 200 MG PO (02:58)
[2018-12-07] MEDS: amLODIPine 10 MG TAB PO ×2 (02:58→20:04)
[2018-12-07] MEDS: Atorvastatin 20 MG TAB PO ×2 (02:58→20:04)
[2018-12-07] MEDS: Gabapentin 100 MG CAP 200 MG PO ×2 (02:58→20:08)
[2018-12-07] MEDS: Aspirin E.C. 81 MG TABEC PO ×2 (03:00→20:04)
[2018-12-07 03:35] LABS: Troponin I < 0.05 ng/mL (0.00-0.06)
[2018-12-07] MEDS: Levothyroxine 25 MCG TAB PO (06:37)
[2018-12-07] MEDS: Heparin 5,000 UNITS/ML VIAL 5000 UNITS SC ×3 (06:37→22:31)
[2018-12-07 07:13] LABS: ALT 16 U/L (12-78); AST 17 U/L (15-37); Albumin 3.2 g/dL (3.4-5.0); Alkaline Phosphatase 70 U/L (46-116); Anion Gap 12.4 mmol/L (3-11); BUN 37 mg/dL (7-18); Bilirubin, Total 0.7 mg/dL (0.2-1.0); CO2 24.6 mmol/L (21.0-32.0); CREATININE 3.38 mg/dL (0.55-1.02); Calcium 8.9 mg/dL (8.5-10.1); Chloride 99 mmol/L (98-107); Estimated GFR 13.44 (mL/min/1.73m2); Glucose 88 mg/dL (70-100); Potassium 3.8 mmol/L (3.5-5.1); Sodium 136 mmol/L (136-145); Total Protein 6.5 g/dL (6.4-8.2)
[2018-12-07 07:16] LABS: TSH (W/Ref FT4) 12.82 uIU/mL (0.36-3.74)
[2018-12-07 07:29] LABS: Troponin I < 0.05 ng/mL (0.00-0.06)
[2018-12-07 07:35] LABS: FREE T4 1.12 ng/dL (0.76-1.46)
--- NOTE | 2018-12-07 08:18 | W.PM.PROGNOT ---
Date of Service Date of service: 12/07/18 Time of Service: 08:18 Assessment and Plan (1) Acute on chronic systolic (congestive) heart failure: Current visit: Yes Status: Acute EF was 54% on the last echo at [facility] in 08/2018, did have elevated left sided filling pressures/diastolic dysfunction. In this case, I question whether the sodium from the sodium bicarb initiated as outpatient could be causing some fluid retention and leading to CHF. In addition, her hypothyroidism is undertreated. Diurese on lasix gtt, carefully monitoring Cr, I/O, daily weights. Increase synthroid. D/c sodium bicarb. (2) Hypertensive emergency: Current visit: No Status: Acute Continue home therapy in addition to diuresis. Read discussion above. (3) Acute respiratory failure with hypoxia: Current visit: No Status: Acute Improving. Due to Acute on chronic systolic CHF in setting of hypertensive emergency. Wean O2 as tolerated as diuresing. (4) Acute kidney injury superimposed on chronic kidney disease: Current visit: Yes Status: Acute Monitor Cr, I/O's, daily weights while diuresis. The patient is intolerant of [place]-i and ARB. Patient follows with vascular for renal artery stenosis which was bypassed - per [facility] records, graft is patent. (5) Anemia: Current visit: Yes Status: Chronic On iron supplements as outpatient. Add vitamin C and stool softeners. Qualifiers: Anemia type: due to chronic kidney disease Chronic kidney disease stage: stage 3 (moderate) Qualified Code(s): N18.3 - Chronic kidney disease, stage 3 (moderate); D63.1 - Anemia in chronic kidney disease (6) Atherosclerotic renal artery stenosis, bilateral: Current visit: No Status: Chronic As above - follow up as outpatient - however, if Cr worsens, would speak with [facility] nephrology/vascular about possibly transferring the patient there. (7) Constipation: Current visit: Yes Status: Acute Start colace, senna, prn dulcolax. Increase synthroid. (8) Hypothyroidism: Current visit: Yes Status: Chronic Increase synthroid. (9) DVT prophylaxis: Current visit: No Status: Acute Heparin SC (10) Discharge planning issues: Current visit: Yes Status: Acute Full code Transferred into ICU today for closer BP monitoring (possible cardene gtt - the patient has not needed this so far). Critical Care time 35 minutes. Subjective Interval history since last seen: On humidified heated high flow this am - drops to 70% on RA. Not subjectively short of breath. Denies dizziness, chest pain, shortness of breath, nausea, vomiting. Endorses compliance with sodium restriction at home - notes that ever since she started to take sodium bicarb rx'ed by nephrology, her BP's started to climb into 160's (they would otherwise normally run in 140's). Reports feeling constipated and sometimes feeling compacted in her abdomen. Last BM today - firmed. I'm always constipated. She does not take stool softeners. Recently started on iron. Exam Narrative Exam Narrative: General: elderly female, appears younger than her stated age, on high flow O2, not in acute distress, A&Ox3 HEENT: EOMI, MMM Heart: RRR, no m/r/g Lungs: diminished at B bases, crackles heard 1/[address] B lungs GI: abdomen is soft, but full, nontender, nondistended Extremities: trace edema BLE's, no c/c. Objective Objective Clinical Data: Abnormal lab results 12/06/18 12/06/18 12/06/18 Range/Units 22:55 22:55 22:55 RBC 3.24 L (4.00-5.20) m/cumm Hgb 9.9 L (12.0-15.5) g/dL Hct 29.0 L (36.0-46.0) % RDW 14.7 H (11.7-14.6) % Absolute Monocytes 0.78 H (0.11-0.7) k/cumm Absolute Eosinophils 1.08 H (0.0-0.7) k/cumm pO2 (83-108) mmHg Sodium 133 L (136-145) mmol/L Potassium 3.3 L (3.5-5.1) mmol/L Chloride 96 L (98-107) mmol/L Anion Gap 14.5 H (3-11) mmol/L BUN 39 H (7-18) mg/dL Creatinine 3.41 H (0.55-1.02) mg/dL Glucose 130 H (70-100) mg/dL NT-Pro-B Natriuret Pep 15480 H ( - 299) pg/mL Albumin (3.4-5.0) g/dL TSH (0.36-3.74) uIU/mL 12/07/18 12/07/18 12/07/18 Range/Units 00:13 06:30 06:30 RBC (4.00-5.20) m/cumm Hgb (12.0-15.5) g/dL Hct (36.0-46.0) % RDW (11.7-14.6) % Absolute Monocytes (0.11-0.7) k/cumm Absolute Eosinophils (0.0-0.7) k/cumm pO2 75 L (83-108) mmHg Sodium (136-145) mmol/L Potassium (3.5-5.1) mmol/L Chloride (98-107) mmol/L Anion Gap 12.4 H (3-11) mmol/L BUN 37 H (7-18) mg/dL Creatinine 3.38 H (0.55-1.02) mg/dL Glucose (70-100) mg/dL NT-Pro-B Natriuret Pep ( - 299) pg/mL Albumin 3.2 L (3.4-5.0) g/dL TSH 12.82 H (0.36-3.74) uIU/mL Vital Signs Temperature 36.9 C 12/07/18 03:48 Temperature Source Temporal Artery Scan 12/07/18 03:48 Pulse 71 12/07/18 07:00 Pulse Rhythm Regular 12/07/18 03:48 Pulse 79 12/07/18 08:00 Respiratory Rate 13 12/07/18 08:00 Respiratory Effort 12/07/18 03:48 Respiratory Depth Normal 12/07/18 03:48 Respiratory Pattern Normal 12/07/18 03:48 Blood Pressure 164/76 H 12/07/18 07:00 Blood Pressure Mean 97 12/07/18 07:00 Blood Pressure Position Supine 12/07/18 01:59 Pulse Oximetry 93 L 12/07/18 08:00 Oxygen Delivery Method Hi Flow System 12/07/18 07:40 Oxygen Flow Rate 35 12/07/18 07:40 Fraction of Inspired Oxygen (FIO2) 46 12/07/18 07:40 Pain Level 0 12/07/18 03:48 Comment 12/06/18 22:46 Intake & Output 12/06/18 12/06/18 12/07/18 11:59 23:59 11:59 Output Total 425 / 425 Balance -425 / -425 Weight 44 kg 41.5 kg Output: Urine 425 / 425 Other: Urine Color Pale Yellow Urine Appearance Clear Urine Odor None Voiding Methods Bedside Commode Laboratory Results WBC 9.48 k/cumm (4.4-10.8) 12/06/18 22:55 RBC 3.24 m/cumm (4.00-5.20) L 12/06/18 22:55 Hgb 9.9 g/dL (12.0-15.5) L 12/06/18 22:55 Hct 29.0 % (36.0-46.0) L 12/06/18 22:55 MCV 89.5 fL (80-95) 12/06/18 22:55 MCH 30.6 pg (27.0-33.0) 12/06/18 22:55 MCHC 34.1 g/dL (32.0-36.0) 12/06/18 22:55 RDW 14.7 % (11.7-14.6) H 12/06/18 22:55 Plt Count 304 x1000/uL (130-400) 12/06/18 22:55 MPV 10.2 fL (8.0-11.0) 12/06/18 22:55 Immature Gran % 0.2 12/06/18 22:55 62.1 12/06/18 22:55 17.4 12/06/18 22:55 8.2 12/06/18 22:55 11.4 12/06/18 22:55 0.7 12/06/18 22:55 Absolute Neutrophils 5.88 k/cumm (1.2-6.7) 12/06/18 22:55 Absolute Lymphocytes 1.65 k/cumm (1.2-3.4) 12/06/18 22:55 Absolute Monocytes 0.78 k/cumm (0.11-0.7) H 12/06/18 22:55 Absolute Eosinophils 1.08 k/cumm (0.0-0.7) H 12/06/18 22:55 Absolute Basophils 0.07 k/cumm (0.0-0.2) 12/06/18 22:55 Agrees w/ instrument 12/06/18 22:55 RBC Morphology See below 12/06/18 22:55 Present 12/06/18 22:55 1+ 12/06/18 22:55 1+ 12/06/18 22:55 PT 10.7 sec (9.3-11.0) 12/06/18 22:55 INR 1.1 (0.9-1.1) 12/06/18 22:55 APTT 24.0 sec (21.0-31.4) 12/06/18 22:55 Sample Site Left radial 12/07/18 00:13 pCO2 35 mmHg (34-47) 12/07/18 00:13 pO2 75 mmHg (83-108) L 12/07/18 00:13 O2 Saturation 95 % (94-98) 12/07/18 00:13 ABG pH 7.43 (7.35-7.45) 12/07/18 00:13 ABG HCO3 23 mmol/L (22-28) 12/07/18 00:13 ABG Total CO2 22 mmol/L (22-29) 12/07/18 00:13 ABG Base Excess -0.9 mmol/L (-3-3) 12/07/18 00:13 VBG pH Cancelled 12/06/18 23:40 VBG pCO2 Cancelled 12/06/18 23:40 VBG pO2 Cancelled 12/06/18 23:40 VBG HCO3 Cancelled 12/06/18 23:40 VBG Total CO2 Cancelled 12/06/18 23:40 VBG O2 Saturation Cancelled 12/06/18 23:40 VBG Base Excess Cancelled 12/06/18 23:40 60 % 12/07/18 00:13 Sodium 136 mmol/L (136-145) 12/07/18 06:30 Potassium 3.8 mmol/L (3.5-5.1) 12/07/18 06:30 Chloride 99 mmol/L (98-107) 12/07/18 06:30 Carbon Dioxide 24.6 mmol/L (21.0-32.0) 12/07/18 06:30 12.4 mmol/L (3-11) H 12/07/18 06:30 BUN 37 mg/dL (7-18) H 12/07/18 06:30 3.38 mg/dL (0.55-1.02) H 12/07/18 06:30 13.44 (mL/min/1.73m2) 12/07/18 06:30 Glucose 88 mg/dL (70-100) 12/07/18 06:30 Calcium 8.9 mg/dL (8.5-10.1) 12/07/18 06:30 Magnesium 1.9 mg/dL (1.8-2.4) 12/06/18 22:55 0.7 mg/dL (0.2-1.0) 12/07/18 06:30 AST 17 U/L (15-37) 12/07/18 06:30 ALT 16 U/L (12-78) 12/07/18 06:30 70 U/L (46-116) 12/07/18 06:30 < 0.05 ng/mL (0.00-0.06) 12/07/18 06:30 NT-Pro-B Natriuret Pep 85990 pg/mL (-299) H 12/06/18 22:55 6.5 g/dL (6.4-8.2) 12/07/18 06:30 3.2 g/dL (3.4-5.0) L 12/07/18 06:30 TSH 12.82 uIU/mL (0.36-3.74) H 12/07/18 06:30 Free T4 1.12 ng/dL (0.76-1.46) 12/07/18 06:30
--- NOTE | 2018-12-07 08:20 | PHARADMIT ---
Addendum entered by Yelitza Santos 12/12/18 12:54: Pharmacy Note Subjective admitted for hypertensive emergency Objective SCr 3.33, BP 168/75, weight down 1.5kg overnight, labs ok Assessment Creatinine close to her baseline, like MD mentioned patient is not interested in dialysis Regardless of SCr, [place] [employer] Professor of this patient wants her to continue on Lasix Still Hypertensive, added Terazosin 1mg po BID today weight is down, patient is dry per MD, very tiny lady Plan follow BP, weight, I/O, Anticipate discharge home soon Addendum entered by Yelitza Santos 12/11/18 10:47: Pharmacy Note Subjective Stage-3 CKD with no interest in Dialysis per MD Objective BP 185/66, Afebrile, weight down 1.1kg overnight, I/O negative Scr 3.36 Assessment BP meds (Labetalol, Amlodipine, Clonidine, Lasix) no med changes at this time Plan Follow Hypertension and pulmonary edema Anticipate discharge home soon Addendum entered by Grace Barrientos 12/10/18 16:28: Pharmacy Note Subjective pt. sounds better per progress note Objective BP-166/73 other VS okay SCr-3.24(up) Assessment furosemide drip changed to PO ferrous sulfate discontinued Plan continue to watch VS, labs and for med changes Addendum entered by Jami Tsai 12/09/18 16:52: Pharmacy Note Subjective Improving, transfer to [place] from ICU today, needed bipap overnight Objective BP 153/74, afebrile, Na 137, K+ 3.8, Mg 2.7, SCr 3.06 (trending down) Assessment Still retaining fluid, respiratory failure improving - on room air today Plan Increase lasix gtt, monitor SCr and I/O's/daily wts Addendum entered by Jami Tsai 12/08/18 11:38: Pharmacy Note Subjective Remained stable over night, breathing improving and feeling better overall Objective BP 153/66, HR 79, Scr 3.36/CrCl ~10ml/min, Assessment Acute resp failure and CHF improving with diuresis; GAEL with CKD - Scr slightly improving - may improve w diuresis Plan Continue lasix gtt, labetolol, amlodipine -- avoid ACEI/ARBs as pt has atherosclerotic renal artery stenosis s/p bypass Original Note: Admission Pharmacy Clinical Review COPD EXACERBATION Code Status Full Code Current Weight 41.5 kg Renally Cleared and Narrow Therapeutic Index Meds CRCL ~10ML/MIN QTc Value / Action Taken 490 BP Control, Fever 164/76, afebrile Electrolytes reviewed ok DVT Prophylaxis heparin Opiate Usage / Scheduled Bowel Regimen Ordered na/PRN Plt/SCr for Heparin / Enoxaparin 304/3.38 INR for Warfarin 1.1 H/H stable, WBC/Bands 9.9/29.0 wbc 9.48 Antibiotic appropriatenessna na Cultures and Sensitivities na Surgical ABX d/c within 24 hr na DM control / Insulin Dosing na Heart Failure (Check EF%) (ABBY's, B-Block, Diuretics) IV to PO Switch furosemide infusion started Home Meds Reviewed Home Meds Not Ordered all ordered Comments
[2018-12-07] MEDS: Isosorbide Mononitrate 30 MG TABCR 90 MG PO (08:26)
[2018-12-07] MEDS: Ferrous Sulfate 325 MG TAB PO ×2 (08:27→20:03)
[2018-12-07] MEDS: Potassium Chloride 10 MEQ TABCR PO ×2 (08:27→20:04)
[2018-12-07] MEDS: Labetalol 100 MG TAB 400 MG PO ×2 (08:27→20:04)
[2018-12-07] MEDS: Sodium Bicarbonate 650 MG TAB 1300 MG PO (08:27)
[2018-12-07] MEDS: Normal Saline Flush 10 ML SYR IVP (08:28)
[2018-12-07] MEDS: Normal Saline 500 ML 10 ML IV (09:00)
--- NOTE | 2018-12-07 10:31 | PDOC.CMIN ---
Care Management Initial Assess REASON FOR HOSPITALIZATION:: CHF, hypoxia, GAEL with CKD, anemia PAST MEDICAL HISTORY/PAST SURGICAL HISTORY:: Medical: AAA without rupture, anemia, blue toe syndrome of RLE, cardiomyopathy, CKD, creatinine elevation, hearing loss, hepatitis B, high blood cholesterol, HTN, H/O jaundice, lymphocytic-plasmacytic colitis, renal artery stenosis, renovascular HTN. Surgical: bilateral salpingectomy with oophorectomy, colonoscopy, EGD, lap hysterectomy, surgery 09/07/18. PREVIOUS FUNCTIONAL STATUS/SOCIAL/FAMILY SUPPORTS:: Charlene is 68 yo woman who lives with her Rodolfo in their home in [place]. She just retired on 11/24/18 from [employer]. They have two adult children, a daughter in [place] and son in [place]. She is usually active and independent with ADL's and transportation. CURRENT FUNCTIONAL STATUS:: She is lying in bed in ICU when CM enters. She easily engages in discussion re plans. Rodolfo was present. ADVANCE DIRECTIVES:: Document on file at [facility]. Rodolfo is agent and dimas FriasMary is alternate. Has patient been provided with information about the portal?: Yes Did the patient sign up for the portal?: No CODE STATUS:: Full Code INSURANCE COVERAGE / FINANCIAL ISSUES:: Medicare. BC/BS CURRENT HOME/COMMUNITY SERVICES/EQUIPMENT:: No services or equipment used at home. PRIMARY CARE PHYSICIAN:: Sanjuanita Lee MD. She has cardiology and nephrology MD's in community. POTENTIAL DISCHARGE NEEDS:: Will need follow-up with PCP and cardiology and nephrology as directed. PATIENT/FAMILY EDUCATION NEEDS:: Review d/c instructions re meds and activity levels, Ask me Now questions. ANTICIPATED BARRIERS TO DISCHARGE:: none identified TRANSPORTATION:: via car with Rodolfo. PLAN:: d/c home as per MD, no services anticipated.
--- NOTE | 2018-12-07 14:41 | W.NUTCONSULT ---
Date of service: 12/07/18 Time of Service: 14:41 Nutritional Consult ASSESSMENT: Appreciate nutrition consult for Charlene Harmon for low sodium meal plan to encourage correction of hypertension. Systolic blood pressures 150-190s. She has been following low sodium meal plan without any correction of blood pressure. State she looks at all labels and limits sodium to less than 200mg per serving with a goal of less than 2000mg daily. She reports little appetite. She has ice water with medications. She skips breakfast and lunch, but if hungry will have shredded wheat with butter or honey nut cheerios dry. She cooks chicken or beef, potato, rice, pasta and a vegetable for supper. She occasionally has ice cream sandwich or root beef float in the evening. Charlene reports 26 pound weight loss over past 6 months with current BMI 17.9 She states she is sick of chicken and beef and misses cheese. SHe has some food dislikes including fish and does not drink milk, and her does not like casseroles, so she feels her food choices are limited and she is bored. She likes pasta but the sauces are too high in sodium so that is limited. She limits any foods more than 200mg / serving. NUTRITIONAL DIAGNOSIS: Inadequate caloric intake with concurrent weight loss secondary to sodium restriction. INTERVENTION: Charlene reports no concern regarding her situation. Discussed foods that have minimal sodium that could be added to her daily food plan to boost calories focused on fruit, additional protein sources and starches. She feels she has tried everything and is resigned to her current state. She declines any written materials stating I have had them all. MONITORING AND EVALUATION: Will encourage intake of a variety of low sodium foods while here. Will support her once home as she desires. Time Spent in Nutritional Counseling and Treatment: 20 minutes face to face
[2018-12-07] MEDS: Ascorbic Acid 500 MG TAB PO (20:03)
[2018-12-07] MEDS: Docusate Sodium 100 MG CAP PO (20:03)
[2018-12-07] MEDS: Senna TAB 1 TAB PO (20:03)
[2018-12-07] MEDS: Mylanta Suspension 30 ML CUP PO (22:31)
[2018-12-08] VITALS (31 sets, daily range): BP systolic 152–171; BP diastolic 61–90; PULSE 66–87; RESP 10–24; TEMP 34–37.3; O2SAT 77–97
[2018-12-08] MEDS: Heparin 5,000 UNITS/ML VIAL 5000 UNITS SC ×3 (06:08→21:13)
[2018-12-08] MEDS: Levothyroxine 50 MCG TAB PO (06:08)
[2018-12-08 06:50] LABS: HCT 31.4 % (36.0-46.0); HGB 10.5 g/dL (12.0-15.5); Mean Corp. HGB Concentration 33.4 g/dL (32.0-36.0); Mean Corpuscular Hemoglobin 30.3 pg (27.0-33.0); Mean Corpuscular Volume 90.8 fL (80-95); Mean Platelet Volume 10.5 fL (8.0-11.0); Platelet Count 300 x1000/uL (130-400); RBC 3.46 m/cumm (4.00-5.20); RBC Distribution Width 15.1 % (11.7-14.6); White Blood Cell Count 7.55 k/cumm (4.4-10.8)
[2018-12-08 07:03] LABS: Anion Gap 11.1 mmol/L (3-11); BUN 36 mg/dL (7-18); CO2 26.9 mmol/L (21.0-32.0); CREATININE 3.36 mg/dL (0.55-1.02); Calcium 8.8 mg/dL (8.5-10.1); Chloride 100 mmol/L (98-107); Estimated GFR 13.54 (mL/min/1.73m2); Glucose 93 mg/dL (70-100); Magnesium 1.8 mg/dL (1.8-2.4); Potassium 3.5 mmol/L (3.5-5.1); Sodium 138 mmol/L (136-145)
[2018-12-08] MEDS: Labetalol 100 MG TAB 400 MG PO ×2 (08:35→21:00)
[2018-12-08] MEDS: Potassium Chloride 10 MEQ TABCR PO ×2 (08:35→21:01)
[2018-12-08] MEDS: Ascorbic Acid 500 MG TAB PO ×2 (08:36→21:00)
[2018-12-08] MEDS: POTASSIUM CHLORIDE 10 MEQ/100 ML BAG 100 MEQ IVPB ×2 (08:36→10:31)
[2018-12-08] MEDS: Docusate Sodium 100 MG CAP PO ×2 (08:36→21:00)
[2018-12-08] MEDS: Senna TAB 1 TAB PO ×2 (08:36→21:00)
[2018-12-08] MEDS: Ferrous Sulfate 325 MG TAB PO ×2 (08:36→21:00)
--- NOTE | 2018-12-08 09:39 | W.PM.PROGNOT ---
Date of Service Date of service: 12/08/18 Time of Service: 09:47 Assessment and Plan (1) Acute respiratory failure with hypoxia: Current visit: No Status: Acute currently improving with diuresis. will continue lasix drip with goal output 1-2L per day (2) Acute kidney injury superimposed on chronic kidney disease: Current visit: Yes Status: Acute (3) Acute on chronic systolic (congestive) heart failure: Current visit: Yes Status: Acute Cr slightly improve from yesterday, may improve with duiresis as starling curve shifts back to normal. will closely monitor (4) Essential hypertension: Current visit: No Status: Acute BP elevated above goal, continue lasix, labetolol, amlodipine (5) Atherosclerotic renal artery stenosis, bilateral: Current visit: No Status: Chronic s/p bypass, avoid tj inhibitors/arbs Subjective Patient reports: no new complaints Interval history since last seen: JATINDER overnight, patient remains on lasix gtt with good urine output. 02 requirements have decreased. states breathing fills improved. overall feeling better than time of admission Exam Narrative Exam Narrative: GEN: frail elderldy appearing lady HEENT: NACT, no perioral cyanosis CV: RRR, nl s1 and s2, no murmur LUNGS: slightly tachypneic, poor airmovement bilaterally, no wheeze ABD: soft, NT, ND, NABS EXT: thin, symmetrical, no edema SKIN: WWP, no bruising NEURO: alert, oriented, non focal Objective Objective Clinical Data: Abnormal lab results 12/08/18 12/08/18 Range/Units 06:20 06:20 RBC 3.46 L (4.00-5.20) m/cumm Hgb 10.5 L (12.0-15.5) g/dL Hct 31.4 L (36.0-46.0) % RDW 15.1 H (11.7-14.6) % Anion Gap 11.1 H (3-11) mmol/L BUN 36 H (7-18) mg/dL Creatinine 3.36 H (0.55-1.02) mg/dL Vital Signs Temperature 37.2 C 12/08/18 03:15 Temperature Source Temporal Artery Scan 12/08/18 00:12 Pulse 79 12/08/18 08:08 Pulse Rhythm Regular 12/07/18 07:15 Pulse 71 12/08/18 06:00 Respiratory Rate 15 12/08/18 08:53 Respiratory Effort 12/08/18 08:53 Respiratory Depth Normal 12/08/18 08:53 Respiratory Pattern Normal 12/08/18 08:53 Blood Pressure 160/90 H 12/08/18 08:53 Blood Pressure Mean 113 12/08/18 08:53 Blood Pressure Position Supine 12/08/18 08:53 Pulse Oximetry 95 12/08/18 08:08 Oxygen Delivery Method Hi Flow Nasal Cannula 12/08/18 08:53 Oxygen Flow Rate 35 12/08/18 08:53 Fraction of Inspired Oxygen (FIO2) 29 12/08/18 08:53 Pain Level 0 12/08/18 08:53 Comment 12/06/18 22:46 Intake & Output 12/07/18 12/07/18 12/08/18 11:59 23:59 11:59 Intake Total 128 / 281.250 153.250 / 281.250 558.417 / 558.417 Output Total 1275 / 2525 1250 / 2525 1000 / 1000 Balance -1147 / -2243.750 -1096.750 / -2243.750 -441.583 / -441.583 Weight 41.5 kg Intake: IV 10 / 163.250 153.250 / 163.250 18.417 / 18.417 Oral 118 / 118 540 / 540 Output: Urine 1275 / 2525 1250 / 2525 1000 / 1000 Other: Urine Color Yellow Pale Yellow Yellow Urine Appearance Clear Clear Clear Urine Odor Normal Normal None Stool Size Small Stool Characteristics Formed Hard Voiding Methods Bedside Commode Bedside Commode Bedside Commode Laboratory Results WBC 7.55 k/cumm (4.4-10.8) 12/08/18 06:20 RBC 3.46 m/cumm (4.00-5.20) L 12/08/18 06:20 Hgb 10.5 g/dL (12.0-15.5) L 12/08/18 06:20 Hct 31.4 % (36.0-46.0) L 12/08/18 06:20 MCV 90.8 fL (80-95) 12/08/18 06:20 MCH 30.3 pg (27.0-33.0) 12/08/18 06:20 MCHC 33.4 g/dL (32.0-36.0) 12/08/18 06:20 RDW 15.1 % (11.7-14.6) H 12/08/18 06:20 Plt Count 300 x1000/uL (130-400) 12/08/18 06:20 MPV 10.5 fL (8.0-11.0) 12/08/18 06:20 Immature Gran % 0.2 12/06/18 22:55 62.1 12/06/18 22:55 17.4 12/06/18 22:55 8.2 12/06/18 22:55 11.4 12/06/18 22:55 0.7 12/06/18 22:55 Absolute Neutrophils 5.88 k/cumm (1.2-6.7) 12/06/18 22:55 Absolute Lymphocytes 1.65 k/cumm (1.2-3.4) 12/06/18 22:55 Absolute Monocytes 0.78 k/cumm (0.11-0.7) H 12/06/18 22:55 Absolute Eosinophils 1.08 k/cumm (0.0-0.7) H 12/06/18 22:55 Absolute Basophils 0.07 k/cumm (0.0-0.2) 12/06/18 22:55 Agrees w/ instrument 12/06/18 22:55 RBC Morphology See below 12/06/18 22:55 Present 12/06/18 22:55 1+ 12/06/18 22:55 1+ 12/06/18 22:55 PT 10.7 sec (9.3-11.0) 12/06/18 22:55 INR 1.1 (0.9-1.1) 12/06/18 22:55 APTT 24.0 sec (21.0-31.4) 12/06/18 22:55 Sample Site Left radial 12/07/18 00:13 pCO2 35 mmHg (34-47) 12/07/18 00:13 pO2 75 mmHg (83-108) L 12/07/18 00:13 O2 Saturation 95 % (94-98) 12/07/18 00:13 ABG pH 7.43 (7.35-7.45) 12/07/18 00:13 ABG HCO3 23 mmol/L (22-28) 12/07/18 00:13 ABG Total CO2 22 mmol/L (22-29) 12/07/18 00:13 ABG Base Excess -0.9 mmol/L (-3-3) 12/07/18 00:13 VBG pH Cancelled 12/06/18 23:40 VBG pCO2 Cancelled 12/06/18 23:40 VBG pO2 Cancelled 12/06/18 23:40 VBG HCO3 Cancelled 12/06/18 23:40 VBG Total CO2 Cancelled 12/06/18 23:40 VBG O2 Saturation Cancelled 12/06/18 23:40 VBG Base Excess Cancelled 12/06/18 23:40 60 % 12/07/18 00:13 Sodium 138 mmol/L (136-145) 12/08/18 06:20 Potassium 3.5 mmol/L (3.5-5.1) 12/08/18 06:20 Chloride 100 mmol/L (98-107) 12/08/18 06:20 Carbon Dioxide 26.9 mmol/L (21.0-32.0) 12/08/18 06:20 11.1 mmol/L (3-11) H 12/08/18 06:20 BUN 36 mg/dL (7-18) H 12/08/18 06:20 3.36 mg/dL (0.55-1.02) H 12/08/18 06:20 13.54 (mL/min/1.73m2) 12/08/18 06:20 Glucose 93 mg/dL (70-100) 12/08/18 06:20 Calcium 8.8 mg/dL (8.5-10.1) 12/08/18 06:20 Magnesium 1.8 mg/dL (1.8-2.4) 12/08/18 06:20 0.7 mg/dL (0.2-1.0) 12/07/18 06:30 AST 17 U/L (15-37) 12/07/18 06:30 ALT 16 U/L (12-78) 12/07/18 06:30 70 U/L (46-116) 12/07/18 06:30 < 0.05 ng/mL (0.00-0.06) 12/07/18 06:30 NT-Pro-B Natriuret Pep 30473 pg/mL (-299) H 12/06/18 22:55 6.5 g/dL (6.4-8.2) 12/07/18 06:30 3.2 g/dL (3.4-5.0) L 12/07/18 06:30 TSH 12.82 uIU/mL (0.36-3.74) H 12/07/18 06:30 Free T4 1.12 ng/dL (0.76-1.46) 12/07/18 06:30
--- NOTE | 2018-12-08 11:16 | PDOC.CMPRO ---
- If Service Date Differs Date of service: 12/08/18 Time of Service: 11:17 Care Management Progress Note S/O: When CM entered the room, Charlene was returning to bed with assistance. Charlene stated that 'she is fine' and that she did not need anything at this time. Charlene was pleasant, but not very conversational. CM continues to follow. A: Charlene is a 68 year old woman admitted to [facility] on 12/06/18 with CHF, GAEL with CKD, and acute respiratory failure with hypoxia. P: Charlene will return home when medically cleared for discharge. Anticipate no additional services at time of discharge. She will transport via private vehicle with her , Rodolfo.
[2018-12-08] MEDS: Isosorbide Mononitrate 30 MG TABCR 90 MG PO (12:06)
[2018-12-08] MEDS: MAGNESIUM SULFATE 2 GM/50 ML BAG IVPB (12:58)
[2018-12-08] MEDS: Polyethylene Glycol 3350 17 GM PACKET PO (20:59)
[2018-12-08] MEDS: Gabapentin 100 MG CAP 200 MG PO (21:12)
[2018-12-08] MEDS: Bisacodyl 5 MG TABEC PO (21:12)
[2018-12-08] MEDS: Atorvastatin 20 MG TAB PO (21:13)
[2018-12-08] MEDS: Aspirin E.C. 81 MG TABEC PO (21:13)
[2018-12-08] MEDS: amLODIPine 10 MG TAB PO (21:13)
[2018-12-08] MEDS: Normal Saline Flush 10 ML SYR IVP (21:41)
[2018-12-09] VITALS (26 sets, daily range): BP systolic 151–186; BP diastolic 63–82; PULSE 68–87; RESP 10–26; TEMP 36.7–37.5; O2SAT 84–95
[2018-12-09] MEDS: Heparin 5,000 UNITS/ML VIAL 5000 UNITS SC ×3 (06:00→19:43)
[2018-12-09] MEDS: Levothyroxine 50 MCG TAB PO (06:00)
[2018-12-09 07:02] LABS: Abs Immature Grans 0.02 k/cumm (0.0-0.09); Absolute Basophil Count 0.05 k/cumm (0.0-0.2); Absolute Eosinophil Count 1.05 k/cumm (0.0-0.7); Absolute Lymphocyte Count 2.01 k/cumm (1.2-3.4); Absolute Monocyte Count 0.84 k/cumm (0.11-0.7); Absolute Neutrophil Count 3.65 k/cumm (1.2-6.7); Basophils % 0.7; Eosinophils % 13.8; HCT 32.2 % (36.0-46.0); HGB 10.6 g/dL (12.0-15.5); Immature Grans % 0.3; Lymphocytes % 26.4; Mean Corp. HGB Concentration 32.9 g/dL (32.0-36.0); Mean Corpuscular Hemoglobin 29.8 pg (27.0-33.0); Mean Corpuscular Volume 90.4 fL (80-95); Mean Platelet Volume 10.1 fL (8.0-11.0); Neutrophils % 47.8; Platelet Count 309 x1000/uL (130-400); RBC 3.56 m/cumm (4.00-5.20); RBC Distribution Width 15.3 % (11.7-14.6); White Blood Cell Count 7.62 k/cumm (4.4-10.8)
[2018-12-09 07:08] LABS: BUN 33 mg/dL (7-18); CREATININE 3.06 mg/dL (0.55-1.02); Calcium 8.9 mg/dL (8.5-10.1); Chloride 98 mmol/L (98-107); Estimated GFR 15.08 (mL/min/1.73m2); Glucose 92 mg/dL (70-100); Magnesium 2.7 mg/dL (1.8-2.4); Potassium 3.8 mmol/L (3.5-5.1); Sodium 137 mmol/L (136-145)
[2018-12-09 07:32] LABS: Diff Comment Diff Reviewed
--- NOTE | 2018-12-09 08:00 | DI.RAD_ITS ---
SYMPTOM/DIAGNOSIS: F/U PULMONARY EDEMA PORTABLE AP CHEST: 12/09 0855 HOURS Examination was compared with previous examination of 12/06/18. The previous examination showed cardiomegaly, bilateral intrapulmonary interstitial infiltrates and bilateral pleural effusions. The interstitial infiltrates are slightly less prominent on today's examination. Small bilateral pleural effusions persist. Cardiac size appears decreased. CONCLUSION: Findings suggesting interval improvement in CHF.
--- NOTE | 2018-12-09 08:33 | W.PM.PROGNOT ---
Date of Service Date of service: 12/09/18 Time of Service: 08:33 Assessment and Plan (1) Acute on chronic systolic (congestive) heart failure: Current visit: Yes Status: Acute with frequent exacerbations; EF was 54% on the last echo at [facility] in 08/2018, did have elevated left sided filling pressures/diastolic dysfunction. ?Sodium bicarb contributing to fluid retention - will discuss with nephroloyg. Continue increased dose of synthroid. Increase lasix gtt. Continue monitoring Cr, I/O, daily weights. Patient is refusing whitaker catheter. Consult palliative care. (2) Hypertensive emergency: Current visit: No Status: Acute Recurrent. Continue home therapy in addition to diuresis. Read discussion above. (3) Acute respiratory failure with hypoxia: Current visit: No Status: Acute Improving. On room air today. Increase lasix gtt - monitor O2. Patient and state that the patient felt wiped out for several days prior to presentation - I wonder if she wasn't hypoxic at home. Advised to purchase a pulse ox meter. Trial ear probe while in the hospital. (4) Acute kidney injury superimposed on chronic kidney disease: Current visit: Yes Status: Acute Improved. Continue to monitor Cr, I/O's, daily weights while diuresis. The patient is intolerant of Clayton-i and ARB. Patient follows with vascular for renal artery stenosis which was bypassed - per [facility] records, graft is patent. (5) Anemia: Current visit: Yes Status: Chronic On iron supplements as outpatient. Continue vitamin C and stool softeners. Qualifiers: Anemia type: due to chronic kidney disease Chronic kidney disease stage: stage 3 (moderate) Qualified Code(s): N18.3 - Chronic kidney disease, stage 3 (moderate); D63.1 - Anemia in chronic kidney disease (6) Atherosclerotic renal artery stenosis, bilateral: Current visit: No Status: Chronic As above - follow up as outpatient. (7) Constipation: Current visit: Yes Status: Acute Continue bowel regimen. (8) Hypothyroidism: Current visit: Yes Status: Chronic Continue increased dose of synthroid. (9) DVT prophylaxis: Current visit: No Status: Acute Heparin SC (10) Discharge planning issues: Current visit: Yes Status: Acute Full code Ok to transfer out of ICU today. Subjective Interval history since last seen: Off O2. Denies dizziness, chest pain, shortness of breath, nausea, vomiting. 82% this am on walking - now trying ear probe. Needed BiPAP overnight. Asking if it would be safe for her to fly to [place] on Thursday - I stated that I didn't think it was a great idea. Agreeable to palliative care consult. Exam Narrative Exam Narrative: General: elderly female, sitting comfortably in a chair, off O2, A&Ox3 HEENT: EOMI, MMM Heart: RRR, no m/r/g Lungs: Crackles 1[address] B lungs; I can hear aeration in B bases today GI: abdomen is soft, but full, nontender, nondistended Extremities: no BLE's, no c/c, 2+ pedal pulses B Objective Objective Clinical Data: Abnormal lab results 12/09/18 12/09/18 Range/Units 06:35 06:35 RBC 3.56 L (4.00-5.20) m/cumm Hgb 10.6 L (12.0-15.5) g/dL Hct 32.2 L (36.0-46.0) % RDW 15.3 H (11.7-14.6) % Absolute Monocytes 0.84 H (0.11-0.7) k/cumm Absolute Eosinophils 1.05 H (0.0-0.7) k/cumm Anion Gap 13.0 H (3-11) mmol/L BUN 33 H (7-18) mg/dL Creatinine 3.06 H (0.55-1.02) mg/dL Magnesium 2.7 H (1.8-2.4) mg/dL Vital Signs Temperature 37.1 C 12/09/18 03:15 Temperature Source Tympanic 12/09/18 03:15 Pulse 68 12/09/18 04:00 Pulse Rhythm Regular 12/07/18 07:15 Pulse 69 12/09/18 04:01 Respiratory Rate 15 12/09/18 04:01 Respiratory Effort Accessory Muscle Use 12/09/18 03:15 Respiratory Depth Normal 12/09/18 03:15 Respiratory Pattern Normal 12/09/18 03:15 Blood Pressure 158/69 H 12/09/18 04:00 Blood Pressure Mean 91 12/09/18 04:00 Blood Pressure Position Supine 12/08/18 08:53 Pulse Oximetry 93 L 12/09/18 04:01 Oxygen Delivery Method Cpap 12/09/18 03:15 Oxygen Flow Rate 25 12/09/18 03:15 Fraction of Inspired Oxygen (FIO2) 25 12/09/18 03:15 Pain Level 0 12/09/18 03:15 Comment 12/06/18 22:46 Intake & Output 12/08/18 12/08/18 12/09/18 11:59 23:59 11:59 Intake Total 785.333 / 972.708 187.375 / 972.708 240 / 240 Output Total 1550 / 2500 950 / 2500 Balance -764.667 / -1527.292 -762.625 / -1527.292 240 / 240 Intake: IV 245.333 / 332.708 87.375 / 332.708 Oral 540 / 640 100 / 640 240 / 240 Output: Urine 1550 / 2500 950 / 2500 Other: Urine Color Yellow Yellow Urine Appearance Clear Clear Urine Odor None Comment Pt still on the lasix drip Pt still on the lasix drip Voiding Methods Bedside Commode Bedside Commode Laboratory Results WBC 7.62 k/cumm (4.4-10.8) 12/09/18 06:35 RBC 3.56 m/cumm (4.00-5.20) L 12/09/18 06:35 Hgb 10.6 g/dL (12.0-15.5) L 12/09/18 06:35 Hct 32.2 % (36.0-46.0) L 12/09/18 06:35 MCV 90.4 fL (80-95) 12/09/18 06:35 MCH 29.8 pg (27.0-33.0) 12/09/18 06:35 MCHC 32.9 g/dL (32.0-36.0) 12/09/18 06:35 RDW 15.3 % (11.7-14.6) H 12/09/18 06:35 Plt Count 309 x1000/uL (130-400) 12/09/18 06:35 MPV 10.1 fL (8.0-11.0) 12/09/18 06:35 Immature Gran % 0.3 12/09/18 06:35 47.8 12/09/18 06:35 26.4 12/09/18 06:35 11.0 12/09/18 06:35 13.8 12/09/18 06:35 0.7 12/09/18 06:35 Absolute Neutrophils 3.65 k/cumm (1.2-6.7) 12/09/18 06:35 Absolute Lymphocytes 2.01 k/cumm (1.2-3.4) 12/09/18 06:35 Absolute Monocytes 0.84 k/cumm (0.11-0.7) H 12/09/18 06:35 Absolute Eosinophils 1.05 k/cumm (0.0-0.7) H 12/09/18 06:35 Absolute Basophils 0.05 k/cumm (0.0-0.2) 12/09/18 06:35 Diff reviewed 12/09/18 06:35 RBC Morphology See below 12/06/18 22:55 Present 12/06/18 22:55 1+ 12/06/18 22:55 1+ 12/06/18 22:55 PT 10.7 sec (9.3-11.0) 12/06/18 22:55 INR 1.1 (0.9-1.1) 12/06/18 22:55 APTT 24.0 sec (21.0-31.4) 12/06/18 22:55 Sample Site Left radial 12/07/18 00:13 pCO2 35 mmHg (34-47) 12/07/18 00:13 pO2 75 mmHg (83-108) L 12/07/18 00:13 O2 Saturation 95 % (94-98) 12/07/18 00:13 ABG pH 7.43 (7.35-7.45) 12/07/18 00:13 ABG HCO3 23 mmol/L (22-28) 12/07/18 00:13 ABG Total CO2 22 mmol/L (22-29) 12/07/18 00:13 ABG Base Excess -0.9 mmol/L (-3-3) 12/07/18 00:13 VBG pH Cancelled 12/06/18 23:40 VBG pCO2 Cancelled 12/06/18 23:40 VBG pO2 Cancelled 12/06/18 23:40 VBG HCO3 Cancelled 12/06/18 23:40 VBG Total CO2 Cancelled 12/06/18 23:40 VBG O2 Saturation Cancelled 12/06/18 23:40 VBG Base Excess Cancelled 12/06/18 23:40 60 % 12/07/18 00:13 Sodium 137 mmol/L (136-145) 12/09/18 06:35 Potassium 3.8 mmol/L (3.5-5.1) 12/09/18 06:35 Chloride 98 mmol/L (98-107) 12/09/18 06:35 Carbon Dioxide 26.0 mmol/L (21.0-32.0) 12/09/18 06:35 13.0 mmol/L (3-11) H 12/09/18 06:35 BUN 33 mg/dL (7-18) H 12/09/18 06:35 3.06 mg/dL (0.55-1.02) H 12/09/18 06:35 15.08 (mL/min/1.73m2) 12/09/18 06:35 Glucose 92 mg/dL (70-100) 12/09/18 06:35 Calcium 8.9 mg/dL (8.5-10.1) 12/09/18 06:35 Magnesium 2.7 mg/dL (1.8-2.4) H 12/09/18 06:35 0.7 mg/dL (0.2-1.0) 12/07/18 06:30 AST 17 U/L (15-37) 12/07/18 06:30 ALT 16 U/L (12-78) 12/07/18 06:30 70 U/L (46-116) 12/07/18 06:30 < 0.05 ng/mL (0.00-0.06) 12/07/18 06:30 NT-Pro-B Natriuret Pep 61369 pg/mL (-299) H 12/06/18 22:55 6.5 g/dL (6.4-8.2) 12/07/18 06:30 3.2 g/dL (3.4-5.0) L 12/07/18 06:30 TSH 12.82 uIU/mL (0.36-3.74) H 12/07/18 06:30 Free T4 1.12 ng/dL (0.76-1.46) 12/07/18 06:30 CXR: Findings suggesting interval improvement in CHF.
[2018-12-09] MEDS: Senna TAB 1 TAB PO ×2 (09:04→19:42)
[2018-12-09] MEDS: Polyethylene Glycol 3350 17 GM PACKET PO (09:04)
[2018-12-09] MEDS: Potassium Chloride 10 MEQ TABCR PO ×2 (09:04→19:42)
[2018-12-09] MEDS: Ascorbic Acid 500 MG TAB PO ×2 (09:04→19:42)
[2018-12-09] MEDS: Ferrous Sulfate 325 MG TAB PO ×2 (09:04→19:42)
[2018-12-09] MEDS: Docusate Sodium 100 MG CAP PO ×2 (09:04→19:42)
[2018-12-09] MEDS: Labetalol 100 MG TAB 400 MG PO ×2 (09:04→19:42)
--- NOTE | 2018-12-09 10:08 | PDOC.CMPRO ---
Care Management Progress Note S/O: Charlene was sitting up in the chair, Rodolfo in the chair next to her in her new room on the MED/SURG floor as she was transferred out of ICU. CM discussed [place] order for PC. Rodolfo reported tomorrow afternoon would be preferable but that he could make himself available if PC [facility] had a full schedule tomorrow. CM agreed to update Charlene and Rodolfo with times provided by the Palliative Care office. Neither shared any other concerns at this time. Both were fully engaged sharing their feelings around missing their 50 anniversary trip planned for next week. They were watching a car auction show together and appeared to be in good spirits, considering. CM continues to follow. A: Charlene is a 68 year old woman admitted to [facility] on 12/06/18 with CHF, GAEL with CKD, and acute respiratory failure with hypoxia. P: Charlene will return home when medically cleared for discharge. Anticipate no additional services at time of discharge. She will transport via private vehicle with her , Rodolfo.
[2018-12-09] MEDS: Isosorbide Mononitrate 30 MG TABCR 90 MG PO (12:03)
[2018-12-09] MEDS: amLODIPine 10 MG TAB PO (19:41)
[2018-12-09] MEDS: Aspirin E.C. 81 MG TABEC PO (19:41)
[2018-12-09] MEDS: Gabapentin 100 MG CAP 200 MG PO (19:41)
[2018-12-09] MEDS: Atorvastatin 20 MG TAB PO (19:41)
[2018-12-09] MEDS: Mylanta Suspension 30 ML CUP PO (22:10)
[2018-12-10] VITALS (8 sets, daily range): BP systolic 147–173; BP diastolic 65–84; PULSE 73–83; RESP 10–18; TEMP 36.3–37.4; O2SAT 90–96
[2018-12-10] MEDS: Levothyroxine 50 MCG TAB PO (06:39)
[2018-12-10] MEDS: Heparin 5,000 UNITS/ML VIAL 5000 UNITS SC ×3 (06:39→22:22)
[2018-12-10 07:32] LABS: Abs Immature Grans 0.01 k/cumm (0.0-0.09); Absolute Basophil Count 0.07 k/cumm (0.0-0.2); Absolute Eosinophil Count 1.11 k/cumm (0.0-0.7); Absolute Lymphocyte Count 1.69 k/cumm (1.2-3.4); Absolute Monocyte Count 0.73 k/cumm (0.11-0.7); Absolute Neutrophil Count 4.07 k/cumm (1.2-6.7); Basophils % 0.9; Eosinophils % 14.5; Immature Grans % 0.1; Mean Corp. HGB Concentration 33.3 g/dL (32.0-36.0); Mean Corpuscular Hemoglobin 30.5 pg (27.0-33.0); Mean Corpuscular Volume 91.4 fL (80-95); Mean Platelet Volume 10.3 fL (8.0-11.0); Monocytes % 9.5; Platelet Count 342 x1000/uL (130-400); RBC 3.61 m/cumm (4.00-5.20); RBC Distribution Width 15.5 % (11.7-14.6); White Blood Cell Count 7.68 k/cumm (4.4-10.8)
[2018-12-10 07:41] LABS: Anion Gap 11.5 mmol/L (3-11); BUN 36 mg/dL (7-18); CO2 26.5 mmol/L (21.0-32.0); CREATININE 3.24 mg/dL (0.55-1.02); Calcium 9.1 mg/dL (8.5-10.1); Chloride 98 mmol/L (98-107); Estimated GFR 14.12 (mL/min/1.73m2); Glucose 97 mg/dL (70-100); Magnesium 2.4 mg/dL (1.8-2.4); Potassium 3.9 mmol/L (3.5-5.1); Sodium 136 mmol/L (136-145)
[2018-12-10] MEDS: Senna TAB 1 TAB PO ×2 (08:04→20:10)
[2018-12-10] MEDS: Ascorbic Acid 500 MG TAB PO ×2 (08:05→20:10)
[2018-12-10] MEDS: Potassium Chloride 10 MEQ TABCR PO ×2 (08:05→20:10)
[2018-12-10] MEDS: Ferrous Sulfate 325 MG TAB PO (08:05)
[2018-12-10] MEDS: Docusate Sodium 100 MG CAP PO ×2 (08:06→20:10)
[2018-12-10] MEDS: Labetalol 100 MG TAB 400 MG PO ×2 (08:12→20:10)
[2018-12-10] MEDS: Normal Saline Flush 10 ML SYR IVP ×2 (08:47→11:35)
--- NOTE | 2018-12-10 10:30 | PGE_ITS ---
Date of Service Date of service: 12/10/18 Time of Service: 10:30 Assessment and Plan (1) Acute on chronic systolic (congestive) heart failure: Current visit: Yes Status: Acute with frequent exacerbations; EF was 54% on the last echo at [facility] [place] [facility] in 08/[place], diastolic dysfunction. ?Sodium bicarb contributing to fluid retention - discussed with Dr Kemp (nephrology at [facility] [place], follows with patient), who feels it's possible and agrees that it should not be resumed. With his advice, we will titrate the lasix to urine sodium levels 2 hours post lasix for a target of 60-80 mEq. If sodim excretion is less, we will increase lasix, and if it's more, we will decrease it. We have tried to convert the lasix to PO today. I am noticing the trend of the BP's to be on the higher side - set prn pa rameters for clonidine for SBP<160. Dr Kemp feels the patient should be on lasix as outpatient (scheduled + prn). He also wants the patient to call the clinic if there are any questions/concerns about BP for further instructions. Continue increased dose of synthroid. Continue to monitor I/O's, daily weights. Palliative care consulted - recommends having a rescue kit which should include both clonidine and a diuretic (Dr Kemp feels lasix is most appropriate). (2) Hypertensive emergency: Current visit: No Status: Acute Recurrent. Continue home therapy in addition to diuresis. Read discussion above. (3) Acute respiratory failure with hypoxia: Current visit: No Status: Acute Improving. On room air, but I did notice O2 sat in low 90's this morning. I am not sure that the lasix gtt ever did get increased - however, the patient continued to lose weight and sounds better clinically. Low threshold to restart lasix gtt. Used BiPAP last night and felt better with it on - perhaps it was helping her CHF. If interested in obtaining BiPAP as outpatient, she should have an outpatient sleep study. (4) Acute kidney injury superimposed on chronic kidney disease: Current visit: Yes Status: Acute Cr a little worse today. D/C IV lasix and convert to PO. Continue to monitor Cr, I/O's, daily weights while diuresis. The patient is intolerant of Clayton-i and ARB. Patient follows with vascular for renal artery stenosis which was bypassed - per [facility] records, graft is patent. (5) Anemia: Current visit: Yes Status: Chronic On iron supplements as outpatient. Continue vitamin C and stool softeners. Qualifiers: Anemia type: due to chronic kidney disease Chronic kidney disease stage: stage 3 (moderate) Qualified Code(s): N18.3 - Chronic kidney disease, stage 3 (moderate); D63.1 - Anemia in chronic kidney disease (6) Atherosclerotic renal artery stenosis, bilateral: Current visit: No Status: Chronic As above - follow up as outpatient. (7) Constipation: Current visit: Yes Status: Acute Continue bowel regimen. (8) Hypothyroidism: Current visit: Yes Status: Chronic Continue increased dose of synthroid. (9) Early satiety: Current visit: Yes Status: Acute Going on for 2-3 months. The patient describes a feeling of food just sitting there after just a small amount of food. She could benefit from an outpatient EGD. Will send referral to [facility]. (10) DVT prophylaxis: Current visit: No Status: Acute Heparin SC (11) Discharge planning issues: Current visit: Yes Status: Acute Full code Possible discharge home in 24-48 hours. Subjective Interval history since last seen: Feels better today. Remains on lasix gtt. Denies dizziness, chest pain, shortness of breath, nausea, vomiting. Reports the sensation of food just sitting there (shows epigastric area). Exam Narrative Exam Narrative: General: elderly female, A&Ox3, laying in bed - nearly flat, no evidence of tachypnea HEENT: EOMI, MMM Heart: RRR, no m/r/g Lungs: Crackles at B bases, a little better than yesterday GI: abdomen is soft, nontender, nondistended Extremities: no BLE's, no c/c, 2+ pedal pulses B Objective Objective Clinical Data: Abnormal lab results 12/10/18 12/10/18 Range/Units 07:10 07:10 RBC 3.61 L (4.00-5.20) m/cumm Hgb 11.0 L (12.0-15.5) g/dL Hct 33.0 L (36.0-46.0) % RDW 15.5 H (11.7-14.6) % Absolute Monocytes 0.73 H (0.11-0.7) k/cumm Absolute Eosinophils 1.11 H (0.0-0.7) k/cumm Anion Gap 11.5 H (3-11) mmol/L BUN 36 H (7-18) mg/dL Creatinine 3.24 H (0.55-1.02) mg/dL Vital Signs Temperature 36.4 C L 12/10/18 07:45 Temperature Source Tympanic 12/10/18 07:45 Pulse 73 12/10/18 07:45 Pulse Rhythm Regular 12/10/18 09:55 Pulse 69 12/09/18 04:01 Respiratory Rate 18 12/10/18 07:45 Respiratory Effort Non-Labored 12/10/18 09:55 Respiratory Depth Normal 12/10/18 09:55 Respiratory Pattern Normal 12/10/18 09:55 Blood Pressure 173/77 H 12/10/18 07:45 Blood Pressure Mean 102 12/09/18 12:43 Blood Pressure Position Sitting 12/09/18 12:43 Pulse Oximetry 96 12/10/18 07:45 Oxygen Delivery Method Cpap 12/10/18 07:45 Oxygen Flow Rate 0 12/09/18 23:40 Fraction of Inspired Oxygen (FIO2) 25 12/09/18 22:00 Pain Level 0 12/10/18 07:45 Comment 12/06/18 22:46 Intake & Output 12/09/18 12/09/18 12/10/18 11:59 23:59 11:59 Intake Total 250 / 529.042 279.042 / 529.042 120 / 120 Output Total 600 / 600 900 / 900 Balance 250 / -70.958 -320.958 / -70.958 -780 / -780 Weight 41 kg Intake: IV 49.042 39.042 / 49.042 Oral 240 / 480 240 / 480 120 / 120 Output: Urine 600 / 600 900 / 900 Other: Urine Color Yellow Yellow Urine Appearance Clear Clear Urine Odor None Normal Comment Pt still on the lasix drip Stool Size Moderate Stool Characteristics Soft Formed Brown Voiding Methods Toilet Laboratory Results WBC 7.68 k/cumm (4.4-10.8) 12/10/18 07:10 RBC 3.61 m/cumm (4.00-5.20) L 12/10/18 07:10 Hgb 11.0 g/dL (12.0-15.5) L 12/10/18 07:10 Hct 33.0 % (36.0-46.0) L 12/10/18 07:10 MCV 91.4 fL (80-95) 12/10/18 07:10 MCH 30.5 pg (27.0-33.0) 12/10/18 07:10 MCHC 33.3 g/dL (32.0-36.0) 12/10/18 07:10 RDW 15.5 % (11.7-14.6) H 12/10/18 07:10 Plt Count 342 x1000/uL (130-400) 12/10/18 07:10 MPV 10.3 fL (8.0-11.0) 12/10/18 07:10 Immature Gran % 0.1 12/10/18 07:10 53.0 12/10/18 07:10 22.0 12/10/18 07:10 9.5 12/10/18 07:10 14.5 12/10/18 07:10 0.9 12/10/18 07:10 Absolute Neutrophils 4.07 k/cumm (1.2-6.7) 12/10/18 07:10 Absolute Lymphocytes 1.69 k/cumm (1.2-3.4) 12/10/18 07:10 Absolute Monocytes 0.73 k/cumm (0.11-0.7) H 12/10/18 07:10 Absolute Eosinophils 1.11 k/cumm (0.0-0.7) H 12/10/18 07:10 Absolute Basophils 0.07 k/cumm (0.0-0.2) 12/10/18 07:10 Diff reviewed 12/09/18 06:35 RBC Morphology See below 12/06/18 22:55 Present 12/06/18 22:55 1+ 12/06/18 22:55 1+ 12/06/18 22:55 PT 10.7 sec (9.3-11.0) 12/06/18 22:55 INR 1.1 (0.9-1.1) 12/06/18 22:55 APTT 24.0 sec (21.0-31.4) 12/06/18 22:55 Sample Site Left radial 12/07/18 00:13 pCO2 35 mmHg (34-47) 12/07/18 00:13 pO2 75 mmHg (83-108) L 12/07/18 00:13 O2 Saturation 95 % (94-98) 12/07/18 00:13 ABG pH 7.43 (7.35-7.45) 12/07/18 00:13 ABG HCO3 23 mmol/L (22-28) 12/07/18 00:13 ABG Total CO2 22 mmol/L (22-29) 12/07/18 00:13 ABG Base Excess -0.9 mmol/L (-3-3) 12/07/18 00:13 VBG pH Cancelled 12/06/18 23:40 VBG pCO2 Cancelled 12/06/18 23:40 VBG pO2 Cancelled 12/06/18 23:40 VBG HCO3 Cancelled 12/06/18 23:40 VBG Total CO2 Cancelled 12/06/18 23:40 VBG O2 Saturation Cancelled 12/06/18 23:40 VBG Base Excess Cancelled 12/06/18 23:40 60 % 12/07/18 00:13 Sodium 136 mmol/L (136-145) 12/10/18 07:10 Potassium 3.9 mmol/L (3.5-5.1) 12/10/18 07:10 Chloride 98 mmol/L (98-107) 12/10/18 07:10 Carbon Dioxide 26.5 mmol/L (21.0-32.0) 12/10/18 07:10 11.5 mmol/L (3-11) H 12/10/18 07:10 BUN 36 mg/dL (7-18) H 12/10/18 07:10 3.24 mg/dL (0.55-1.02) H 12/10/18 07:10 14.12 (mL/min/1.73m2) 12/10/18 07:10 Glucose 97 mg/dL (70-100) 12/10/18 07:10 Calcium 9.1 mg/dL (8.5-10.1) 12/10/18 07:10 Magnesium 2.4 mg/dL (1.8-2.4) 12/10/18 07:10 0.7 mg/dL (0.2-1.0) 08/13/19 06:30 AST 17 U/L (15-37) 12/07/18 06:30 ALT 16 U/L (12-78) 12/07/18 06:30 70 U/L (46-116) 12/07/18 06:30 < 0.05 ng/mL (0.00-0.06) 12/07/18 06:30 NT-Pro-B Natriuret Pep 81711 pg/mL (-299) H 12/06/18 22:55 6.5 g/dL (6.4-8.2) 12/07/18 06:30 3.2 g/dL (3.4-5.0) L 12/07/18 06:30 TSH 12.82 uIU/mL (0.36-3.74) H 12/07/18 06:30 Free T4 1.12 ng/dL (0.76-1.46) 12/07/18 06:30
[2018-12-10] MEDS: Isosorbide Mononitrate 30 MG TABCR 90 MG PO (11:34)
--- NOTE | 2018-12-10 12:23 | W.PALLCONSUL ---
Date of service: 12/10/18 History of Present Illness Chief Complaint: GAEL on CKI; goals of care; recurrent syncope Narrative: I saw Charlene with her in her room. They were supposed to be going on their 50th anniversary trip; instead Charlene was hospitalized. This is her fourth hospitalization at [facility] this year; she also has been [place] [facility] [place] 21 days in ICU. Her kidneys are not doing well. She is weak. She is losing muscle mass with all her hospitalizations. 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 Her debility is hard to take for her. She is having trouble tolerating medications that nephrology has prescribed. She cannot take sodium bicarb. Her takes meticulous notes about her health and keeps detailed vital signs records. Consults Consult date: 12/10/18 Requesting physician: Yasmany [place] Assessment and Plan (1) Dysphagia: Current visit: No Status: Acute Dysphagia leading to weight loss. BMI only 16. Weight loss ongoing. Was 89 lbs a month ago, 84 lbs on this admission. Has seen GI. Wants to regain her weight. (2) Acute kidney injury superimposed on CKD: Current visit: No Status: Acute Sees Dr Kemp for nephrology. ESRD thought to be due to HTN and PVD. Talked about changing management of HTN to take clonidine when SBP > 160. Was starting to take it when >180 and has ended up with several admissions for HTN crisis. keeps good track of her VS. (3) Goals of care, counseling/discussion: Current visit: No Status: Acute Wants to remain full code. Thinks she can get back to where she was a year ago. 6 admissions in < 12 months have taken a toll. She is not ready to adjust to current level of activity. (4) Vascular disease: Current visit: No Status: Acute ex smoker x 45 years leading cause of her kidney disease and htn (5) Physical deconditioning: Current visit: No Status: Acute motivated to get stronger is an athlete (6) Palliative care patient: Current visit: No Status: Acute will see her as outpatient Review of Systems Constitutional Reports as per HPI, Denies chills, Denies fever(s), Denies headache(s), Denies lethargy and Denies poor appetite Eyes Denies change in vision ENT Denies dizziness and Denies headache(s) Cardiovascular Reports as per HPI, Denies chest pain, Denies chest pain at rest, Denies chest pain with activity, Denies diaphoresis, Denies syncope, Reports leg edema (right side, this is baseline), Denies lightheadedness, Reports dyspnea, Reports dyspnea on exertion and Reports orthopnea Respiratory Reports as per HPI, Denies chest congestion, Denies cough, Denies pain on inspiration, Denies pain with cough, Reports dyspnea, Reports dyspnea on exertion and Denies wheezing Gastrointestinal Reports as per HPI, Denies abdominal pain, Denies diarrhea, Denies nausea and Denies vomiting Musculoskeletal Reports as per HPI and Denies back pain Integumentary/Breasts Reports as per HPI and Denies rash Neurologic Reports as per HPI, Denies dizziness, Denies syncope and Denies headache(s) Allergic/Immunologic Denies wheezing [facility] Medical History (Updated 12/24/18 @ 11:24 by Mariama Nur MD) Abdominal aortic aneurysm (AAA) without rupture (Chronic 01/04/16) 02/26/13-CT scan infra-renal, 3.1 cm, 03/16/2018 [facility] [place] Vascular Dr Moody. 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) Cardiomyopathy (Chronic) HFpEF w/ LVEF 54% per TTE in August 2018 CKD (chronic kidney disease) (Chronic) stage 3GB/[address] Brady Gallo. 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 EGD W/ BS (Resolved 08/12/12) DR CANCHOLA Hysterectomy, Laproscopic (Chronic ~01/1984) Status post surgery (Acute 09/07/18) right external iliac to right renal artery bypass with reversed rifht greater saphenous vein, [facility] Family History (Updated 12/24/18 @ 11:13 by Mariama Nur MD) Grandmother Essential hypertension Mother , age 68 of ovarian cancer Ovarian cancer Father , age 60 of emphysema Emphysema lung Smoker Sister Essential hypertension Brother , age 34 of suicide Suicide Son No problems noted. Daughter No problems noted. 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 Pets and animals: Yes Current gender identity: female What is your relationship status?: How often do you talk on the phone with friends or family?: three or more times per week How often do you get together with friends or relatives?: once per week Panel score (0-1 are the most socially isolated patients): 2 What type of physical activity do you participate in: none Special yanira needs: No Agree to transfusion: Yes Seatbelt use: always Drive intox or ride w/intox local combination truck 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 She felt her health was under control until surgery at [facility]. Surprised to find herself so debilitated. Exam Narrative Exam Narrative: General: Patient appears comfortable, AAOX3, NAD Neck: Supple CV: Regular, nontachycardic, S1S2, No rubs, murmurs, or gallops. Pulmonary: Decreased bibasilar breath sounds with crackles that appear improved since yesterday. No wheezing. Abdomen: + Bowel Sounds, soft, nontender, nondistended Vascular: No lower extremity edema Psych: Normal mood and affect. Results Last Vital Signs Temp 98.4 F 12/13/18 11:36 Pulse 68 12/13/18 11:36 Resp 16 12/13/18 11:36 BP 157/72 H 12/13/18 11:36 Pulse Ox 98 12/13/18 11:36 Labs : 12/13/18 06:50 12/13/18 06:50 Laboratory Results - last 24 hr 12/13/18 12/13/18 06:50 06:50 WBC 7.66 RBC 3.79 L Hgb 11.6 L Hct 34.6 L MCV 91.3 MCH 30.6 MCHC 33.5 RDW 15.4 H Plt Count 325 MPV 10.4 Sodium 136 Potassium 3.8 Chloride 100 Carbon Dioxide 22.7 Anion Gap 13.3 H BUN 37 H Creatinine 3.29 H Estimated GFR/1.73 m2 13.87 Glucose 96 Calcium 9.4 Magnesium 2.3
--- NOTE | 2018-12-10 15:16 | CHAPLAIN ---
I had a brief visit with Charlene. We remembered each other from previous admissions. I offered support and said I would check in another time.
[2018-12-10] MEDS: Furosemide 40 MG TAB PO (15:19)
--- NOTE | 2018-12-10 17:00 | CMPROGNOTE_ITS ---
Care Management Progress Note S/O: Charlene was lying in bed when CM met with her. CM notified of PC appt with Dr. Nur for 1300 today. CM also notified Rodolfo via phone; Rodolfo reported 1300 was a preferable time. Charlene shared no other concerns at this time. Please refer to Dr. Nur's note for further information. CM continues to follow. A: Charlene is a 68 year old woman admitted to [facility] on 12/06/18 with CHF, GAEL with CKD, and acute respiratory failure with hypoxia. P: Charlene will return home when medically cleared for discharge-anticipating orders for TeleHealth and outpatient follow up for sleep study. No additional services anticipated at time of discharge. Charlene will transport via private vehicle with her , Rodolfo.
[2018-12-10] MEDS: Gabapentin 100 MG CAP 200 MG PO (20:09)
[2018-12-10] MEDS: amLODIPine 10 MG TAB PO (20:10)
[2018-12-10] MEDS: Atorvastatin 20 MG TAB PO (20:10)
[2018-12-10] MEDS: Aspirin E.C. 81 MG TABEC PO (20:10)
[2018-12-10 21:20] LABS: Sodium, Urine 71 mmol/L
[2018-12-11 03:16] VITALS: BP 159/67; PULSE 77; RESP 16; TEMP 37.3; O2SAT 94
[2018-12-11] MEDS: Levothyroxine 50 MCG TAB PO (06:49)
[2018-12-11 07:05] LABS: Anion Gap 13.9 mmol/L (3-11); BUN 35 mg/dL (7-18); CO2 24.1 mmol/L (21.0-32.0); CREATININE 3.36 mg/dL (0.55-1.02); Calcium 9.7 mg/dL (8.5-10.1); Chloride 98 mmol/L (98-107); Estimated GFR 13.54 (mL/min/1.73m2); Glucose 99 mg/dL (70-100); Magnesium 2.5 mg/dL (1.8-2.4); Potassium 3.7 mmol/L (3.5-5.1); Sodium 136 mmol/L (136-145)
[2018-12-11 07:26] VITALS: BP 185/66; PULSE 75; RESP 17; TEMP 37.2; O2SAT 93
[2018-12-11] MEDS: Potassium Chloride 10 MEQ TABCR PO ×2 (08:13→19:43)
[2018-12-11] MEDS: Labetalol 100 MG TAB 400 MG PO ×2 (08:13→19:43)
[2018-12-11] MEDS: Ascorbic Acid 500 MG TAB PO ×2 (08:13→19:42)
[2018-12-11] MEDS: Furosemide 40 MG TAB PO ×2 (08:13→15:45)
[2018-12-11] MEDS: Docusate Sodium 100 MG CAP PO ×2 (08:14→19:43)
[2018-12-11] MEDS: Senna TAB 1 TAB PO ×2 (08:14→19:43)
[2018-12-11 11:23] VITALS: BP 170/72; PULSE 69; RESP 18; TEMP 37; O2SAT 94
[2018-12-11] MEDS: Isosorbide Mononitrate 30 MG TABCR 90 MG PO (11:42)
[2018-12-11] MEDS: Heparin 5,000 UNITS/ML VIAL 5000 UNITS SC ×2 (13:40→21:34)
--- NOTE | 2018-12-11 15:13 | W.PM.PROGNOT ---
Date of Service Date of service: 12/11/18 Time of Service: 15:13 Assessment and Plan (1) Hypertensive emergency: Current visit: No Status: Acute Prior history of uncontrolled hypertension, with past episodes of Hypertensive Urgency/Emergency requiring hospitalization. Mrs. Harmon had been well controlled from a blood pressure and symptoms standpoint until the initiation of Sodium Bicarb as an outpatient - this was felt to be a potential contributing factor to her volume overload and hypertensive findings at presentation. - Continue CCB and BB therapy. ABBY-I/ARB with significant elevation in creatinine in the past. Would avoid thiazide and Spironolactone as well. - Currently on standing doses of lasix with worsening renal function. Will discuss with Nephrology regarding utility of continuation of diuresis vs. attempts at better BP control. Neto at goal currently. - Avoid Sodium Bicarb for now. Consider addition of a-se therapy to above regimen. For now will continue lasix as patient could still benefit from additional diuresis. - Palliative care consult with recommendations for home rescue kit consisting of prn Clonidine and Diuretic therapy. (2) Acute on chronic systolic (congestive) heart failure: Current visit: Yes Status: Acute Noted EF 30%, improved to 54% in August of this year. Flash Pulmonary Edema and effusions in setting of Hypertensive Emergency, with CXR clearly showing failure. Lasix gtt discontinued on 12/10, and patient is currently on oral Furosemide. Continue to monitor volume status, daily weights, and renal function carefully. (3) Acute kidney injury superimposed on CKD: Current visit: Yes Status: Acute Current creatinine worsening in setting of active diuresis. Previously discharged with a creatinine of 2.7, which appeared to be a stable finding in October. Current value of 3.36 and rising. Continue to avoid Nephrotoxins, and renally dose medications when appropriate. Current clearance calculated at 4. (4) CKD (chronic kidney disease): Current visit: No Status: Chronic Stage IV CKD at baseline, currently with worsening values. (5) Abdominal aortic aneurysm (AAA) without rupture: Current visit: No Status: Chronic Noted. Continue BB, ASA, and statin therapy. (6) Essential hypertension: Current visit: No Status: Acute Blood pressure treatment as above. (7) Hypothyroidism: Current visit: Yes Status: Chronic Levothyroxine dose increased in setting of TSH >10. (8) Dysphagia: Current visit: Yes Status: Acute Complaint of food 'sticking' - would recommend outpatinet EGD. Ensure follow-up with GI at time of discharge. (9) Advance directive on file: Current visit: No Status: Acute Full Code (10) DVT prophylaxis: Current visit: No Status: Acute SC Heparin. Subjective Interval history since last seen: 68 year old woman with a history of Hypertensive Emergency with Flash Pulmonary Edema requiring multiple prior hospitalizations, admitted from [facility] Emergency Department with a diagnosis of Hypertensive Emergency. Mrs. Harmon has a Past Medical History significant for CKD Stage 4, HTN, AAA, and Hypothyroidism. She was found to have Renal Artery Stenosis, for which she underwent a right sided Bypass in August of this year. There is mention of an acute Hepatitis B infection in the past, for which she underwent treatment. She has had prior episodes of Flash Pulmonary Edema in the setting of Hypertensive Emergency. Her other history includes CHF, with LVEF originally at 30% improved to 54% by recent ECHO, but now with mention of Diastolic Dysfunction. The patient initially presented to the ED with complaints of sudden onset dyspnea, noted to be in respiratory distress and requiring BiPAP therapy and diuresis. She was noted to be hypertensive, and imaging confirmed evidence of pulmonary edema and CHF. She was admitted for further evaluation and treatment. This morning Mrs. Harmon reports continued improvement compared to her initial presentation, now near her baseline from a respiratory standpoint, and maintaining her sats on room air. Her renal function continues to worsen with current diuresis, with a creatinine above her baseline. Blood pressure appears suboptimal but improved. No other events reported. She has remained afebrile. Exam Narrative Exam Narrative: General: Patient appears comfortable, AAOX3, NAD Neck: Supple CV: Regular, nontachycardic, S1S2, No rubs, murmurs, or gallops. Pulmonary: Decreased bibasilar breath sounds L>R, with crackles. No wheezing. Abdomen: + Bowel Sounds, soft, nontender, nondistended Vascular: No lower extremity edema Psych: Normal mood and affect. Objective Objective Clinical Data: Abnormal lab results 12/11/18 Range/Units 06:22 Anion Gap 13.9 H (3-11) mmol/L BUN 35 H (7-18) mg/dL Creatinine 3.36 H (0.55-1.02) mg/dL Magnesium 2.5 H (1.8-2.4) mg/dL Vital Signs Temperature 37.0 C 12/11/18 11:23 Temperature Source Tympanic 12/11/18 11:23 Pulse 69 12/11/18 11:23 Pulse Rhythm Regular 12/11/18 15:08 Pulse 69 12/09/18 04:01 Respiratory Rate 18 12/11/18 11:23 Respiratory Effort 12/11/18 15:08 Respiratory Depth Normal 12/11/18 15:08 Respiratory Pattern Normal 12/11/18 15:08 Blood Pressure 170/72 H 12/11/18 11:23 Blood Pressure Mean 102 12/09/18 12:43 Blood Pressure Position Sitting 12/09/18 12:43 Pulse Oximetry 94 L 12/11/18 11:23 Oxygen Delivery Method Room Air 12/11/18 11:23 Oxygen Flow Rate 0 12/11/18 11:23 Fraction of Inspired Oxygen (FIO2) 25 12/10/18 23:26 Pain Level 0 12/11/18 11:23 Comment 12/06/18 22:46 Intake & Output 12/10/18 12/11/18 12/11/18 23:59 11:59 23:59 Intake Total 240 / 656 709.167 / 1159.167 450 / 1159.167 Output Total 1550 / 2950 900 / 900 Balance -1310 / -2294 -190.833 / 259.167 450 / 259.167 Weight 39.9 kg Intake: IV 0 / 56 389.167 / 389.167 Oral 240 / 600 320 / 770 450 / 770 Output: Urine 1550 / 2950 900 / 900 Other: Urine Color Pale Yellow Yellow Yellow Urine Appearance Clear Clear Clear Urine Odor None None Voiding Methods Toilet Toilet Toilet Laboratory Results WBC 7.68 k/cumm (4.4-10.8) 12/10/18 07:10 RBC 3.61 m/cumm (4.00-5.20) L 12/10/18 07:10 Hgb 11.0 g/dL (12.0-15.5) L 12/10/18 07:10 Hct 33.0 % (36.0-46.0) L 12/10/18 07:10 MCV 91.4 fL (80-95) 12/10/18 07:10 MCH 30.5 pg (27.0-33.0) 12/10/18 07:10 MCHC 33.3 g/dL (32.0-36.0) 12/10/18 07:10 RDW 15.5 % (11.7-14.6) H 12/10/18 07:10 Plt Count 342 x1000/uL (130-400) 12/10/18 07:10 MPV 10.3 fL (8.0-11.0) 12/10/18 07:10 Immature Gran % 0.1 12/10/18 07:10 53.0 12/10/18 07:10 22.0 12/10/18 07:10 9.5 12/10/18 07:10 14.5 12/10/18 07:10 0.9 12/10/18 07:10 Absolute Neutrophils 4.07 k/cumm (1.2-6.7) 12/10/18 07:10 Absolute Lymphocytes 1.69 k/cumm (1.2-3.4) 12/10/18 07:10 Absolute Monocytes 0.73 k/cumm (0.11-0.7) H 12/10/18 07:10 Absolute Eosinophils 1.11 k/cumm (0.0-0.7) H 12/10/18 07:10 Absolute Basophils 0.07 k/cumm (0.0-0.2) 12/10/18 07:10 Diff reviewed 12/09/18 06:35 RBC Morphology See below 12/06/18 22:55 Present 12/06/18 22:55 1+ 12/06/18 22:55 1+ 12/06/18 22:55 PT 10.7 sec (9.3-11.0) 12/06/18 22:55 INR 1.1 (0.9-1.1) 12/06/18 22:55 APTT 24.0 sec (21.0-31.4) 12/06/18 22:55 Sample Site Left radial 12/07/18 00:13 pCO2 35 mmHg (34-47) 12/07/18 00:13 pO2 75 mmHg (83-108) L 12/07/18 00:13 O2 Saturation 95 % (94-98) 12/07/18 00:13 ABG pH 7.43 (7.35-7.45) 12/07/18 00:13 ABG HCO3 23 mmol/L (22-28) 12/07/18 00:13 ABG Total CO2 22 mmol/L (22-29) 12/07/18 00:13 ABG Base Excess -0.9 mmol/L (-3-3) 12/07/18 00:13 VBG pH Cancelled 12/06/18 23:40 VBG pCO2 Cancelled 12/06/18 23:40 VBG pO2 Cancelled 12/06/18 23:40 VBG HCO3 Cancelled 12/06/18 23:40 VBG Total CO2 Cancelled 12/06/18 23:40 VBG O2 Saturation Cancelled 12/06/18 23:40 VBG Base Excess Cancelled 12/06/18 23:40 60 % 12/07/18 00:13 Sodium 136 mmol/L (136-145) 12/11/18 06:22 Potassium 3.7 mmol/L (3.5-5.1) 12/11/18 06:22 Chloride 98 mmol/L (98-107) 12/11/18 06:22 Carbon Dioxide 24.1 mmol/L (21.0-32.0) 12/11/18 06:22 13.9 mmol/L (3-11) H 12/11/18 06:22 BUN 35 mg/dL (7-18) H 12/11/18 06:22 3.36 mg/dL (0.55-1.02) H 12/11/18 06:22 13.54 (mL/min/1.73m2) 12/11/18 06:22 Glucose 99 mg/dL (70-100) 12/11/18 06:22 Calcium 9.7 mg/dL (8.5-10.1) 12/11/18 06:22 Magnesium 2.5 mg/dL (1.8-2.4) H 12/11/18 06:22 0.7 mg/dL (0.2-1.0) 12/07/18 06:30 AST 17 U/L (15-37) 12/07/18 06:30 ALT 16 U/L (12-78) 12/07/18 06:30 70 U/L (46-116) 12/07/18 06:30 < 0.05 ng/mL (0.00-0.06) 12/07/18 06:30 NT-Pro-B Natriuret Pep 59579 pg/mL (-299) H 12/06/18 22:55 6.5 g/dL (6.4-8.2) 12/07/18 06:30 3.2 g/dL (3.4-5.0) L 12/07/18 06:30 TSH 12.82 uIU/mL (0.36-3.74) H 12/07/18 06:30 Free T4 1.12 ng/dL (0.76-1.46) 12/07/18 06:30 Ur Random Sodium 71 mmol/L 12/10/18 17:25
[2018-12-11 15:30] VITALS: BP 160/72; PULSE 75; RESP 17; TEMP 36.4; O2SAT 92
--- NOTE | 2018-12-11 15:42 | CMPROGNOTE_ITS ---
Care Management Progress Note S/O: Charlene was sitting up in bed. Rodolfo was in the chair next to her. Charlene reported that they cancelled the entre trip. She hopes to go home today but does not know if that is possible at this time. A: Charlene is a 68 year old woman admitted to [facility] on 12/06/18 with CHF, GAEL with CKD, and acute respiratory failure with hypoxia. P: Charlene will return home when medically cleared for discharge. Anticipate no additional services at time of discharge. She will transport via private vehicle with her , Rodolfo.
[2018-12-11 19:36] VITALS: BP 177/83; PULSE 78; RESP 17; TEMP 37.3; O2SAT 94
[2018-12-11] MEDS: amLODIPine 10 MG TAB PO (19:42)
[2018-12-11] MEDS: Aspirin E.C. 81 MG TABEC PO (19:43)
[2018-12-11] MEDS: Gabapentin 100 MG CAP 200 MG PO (19:43)
[2018-12-11] MEDS: Atorvastatin 20 MG TAB PO (20:02)
[2018-12-11 23:19] VITALS: BP 163/75; PULSE 79; RESP 17; TEMP 37.4; O2SAT 93
[2018-12-12 03:40] VITALS: BP 169/83; PULSE 83; RESP 18; TEMP 37.8; O2SAT 94
[2018-12-12] MEDS: Heparin 5,000 UNITS/ML VIAL 5000 UNITS SC ×3 (06:42→21:30)
[2018-12-12] MEDS: Levothyroxine 50 MCG TAB PO (06:42)
[2018-12-12 07:02] LABS: BUN 38 mg/dL (7-18); CREATININE 3.33 mg/dL (0.55-1.02); Calcium 9.6 mg/dL (8.5-10.1); Chloride 98 mmol/L (98-107); Estimated GFR 13.68 (mL/min/1.73m2); Glucose 100 mg/dL (70-100); Magnesium 2.3 mg/dL (1.8-2.4); Potassium 3.7 mmol/L (3.5-5.1); Sodium 136 mmol/L (136-145)
[2018-12-12 07:45] VITALS: BP 168/75; PULSE 74; RESP 16; TEMP 37.3; O2SAT 94
[2018-12-12] MEDS: Senna TAB 1 TAB PO (08:08)
[2018-12-12] MEDS: Potassium Chloride 10 MEQ TABCR PO ×2 (08:08→19:53)
[2018-12-12] MEDS: Furosemide 20 MG TAB PO ×2 (08:08→15:10)
[2018-12-12] MEDS: Ascorbic Acid 500 MG TAB PO ×2 (08:08→19:52)
[2018-12-12] MEDS: Docusate Sodium 100 MG CAP PO ×2 (08:08→19:52)
[2018-12-12] MEDS: Labetalol 100 MG TAB 400 MG PO ×2 (08:08→19:52)
[2018-12-12] MEDS: POTASSIUM CHLORIDE 20 MEQ, POTASSIUM CHLORIDE 10 MEQ 30 MEQ PO (08:55)
--- NOTE | 2018-12-12 10:47 | W.PM.PROGNOT ---
Date of Service Date of service: 12/12/18 Time of Service: 10:48 Assessment and Plan (1) Hypertensive emergency: Current visit: No Status: Acute Prior history of uncontrolled hypertension, with past episodes of Hypertensive Urgency/Emergency requiring hospitalization. Mrs. Harmon had been well controlled from a blood pressure and symptoms standpoint until the initiation of Sodium Bicarb as an outpatient - this was felt to be a potential contributing factor to her volume overload and hypertensive findings at presentation. - Continue CCB and BB therapy. ABBY-I/ARB with significant elevation in creatinine in the past. Would avoid thiazide and Spironolactone as well. - Currently on standing doses of lasix - renal function stable today, and weight is down to 38.4 Kg - was discharged essentially euvolemic at 41 Kg one month ago. - Discussed with Nephrology regarding utility of continuation of diuresis vs. attempts at better BP control. Recommendations for continuation of lasix, which was decreased in dose today. - Avoid Sodium Bicarb for now. Add a-se therapy to above regimen for better bp control. - Palliative care consult with recommendations for home rescue kit consisting of prn Clonidine and Diuretic therapy. (2) Acute on chronic systolic (congestive) heart failure: Current visit: Yes Status: Acute Noted EF 30%, improved to 54% in August of this year. Flash Pulmonary Edema and effusions in setting of Hypertensive Emergency, with CXR clearly showing failure. Lasix gtt discontinued on 12/10, and patient is currently on oral Furosemide, downtitrated today. Continue to monitor volume status, daily weights, and renal function carefully. (3) Acute kidney injury superimposed on CKD: Current visit: Yes Status: Acute Current creatinine worsening in setting of active diuresis. Previously discharged with a creatinine of 2.7, which appeared to be a stable finding in October. Current value of 3.3. Continue to avoid Nephrotoxins, and renally dose medications when appropriate. Current clearance calculated at 4. (4) CKD (chronic kidney disease): Current visit: No Status: Chronic Stage IV CKD at baseline, currently with worsening values. (5) Abdominal aortic aneurysm (AAA) without rupture: Current visit: No Status: Chronic Noted. Continue BB, ASA, and statin therapy. (6) Essential hypertension: Current visit: No Status: Acute Blood pressure treatment as above. (7) Hypothyroidism: Current visit: Yes Status: Chronic Levothyroxine dose increased in setting of TSH >10. (8) Dysphagia: Current visit: Yes Status: Acute Complaint of food 'sticking' - would recommend outpatinet EGD. Ensure follow-up with GI at time of discharge. (9) Advance directive on file: Current visit: No Status: Acute Full Code (10) DVT prophylaxis: Current visit: No Status: Acute SC Heparin. Subjective Interval history since last seen: 68 year old woman with a history of Hypertensive Emergency with Flash Pulmonary Edema requiring multiple prior hospitalizations, admitted from [facility] Emergency Department with a diagnosis of Hypertensive Emergency. Mrs. Harmon has a Past Medical History significant for CKD Stage 4, HTN, AAA, and Hypothyroidism. She was found to have Renal Artery Stenosis, for which she underwent a right sided Bypass in August of this year. There is mention of an acute Hepatitis B infection in the past, for which she underwent treatment. She has had prior episodes of Flash Pulmonary Edema in the setting of Hypertensive Emergency. Her other history includes CHF, with LVEF originally at 30% improved to 54% by recent ECHO, but now with mention of Diastolic Dysfunction. The patient initially presented to the ED with complaints of sudden onset dyspnea, noted to be in respiratory distress and requiring BiPAP therapy and diuresis. She was noted to be hypertensive, and imaging confirmed evidence of pulmonary edema and CHF. She was admitted for further evaluation and treatment. This morning Mrs. Harmon reports continued improvement compared to her initial presentation, with breathing near her baseline, and maintaining her sats on room air. Her renal function appears stable today despite current diuresis, and with weight that continues to decrease. Blood pressure appears suboptimal but improved. No other events reported. She has remained afebrile. Exam Narrative Exam Narrative: General: Patient appears comfortable, AAOX3, NAD Neck: Supple CV: Regular, nontachycardic, S1S2, No rubs, murmurs, or gallops. Pulmonary: Decreased bibasilar breath sounds with crackles that appear improved since yesterday. No wheezing. Abdomen: + Bowel Sounds, soft, nontender, nondistended Vascular: No lower extremity edema Psych: Normal mood and affect. Objective Objective Clinical Data: Abnormal lab results 12/12/18 Range/Units 06:15 Anion Gap 13.0 H (3-11) mmol/L BUN 38 H (7-18) mg/dL Creatinine 3.33 H (0.55-1.02) mg/dL Vital Signs Temperature 37.3 C 12/12/18 07:45 Temperature Source Tympanic 12/12/18 07:45 Pulse 74 12/12/18 07:45 Pulse Rhythm Regular 12/12/18 08:40 Pulse 69 12/09/18 04:01 Respiratory Rate 16 12/12/18 07:45 Respiratory Effort 12/12/18 08:40 Respiratory Depth Normal 12/12/18 08:40 Respiratory Pattern Normal 12/12/18 08:40 Blood Pressure 168/75 H 12/12/18 07:45 Blood Pressure Mean 102 12/09/18 12:43 Blood Pressure Position Sitting 12/09/18 12:43 Pulse Oximetry 94 L 12/12/18 07:45 Oxygen Delivery Method Room Air 12/12/18 07:45 Oxygen Flow Rate 0 12/12/18 07:45 Fraction of Inspired Oxygen (FIO2) 25 12/10/18 23:26 Pain Level 0 12/12/18 07:45 Comment 12/12/18 03:40 Intake & Output 12/11/18 12/11/18 12/12/18 11:59 23:59 11:59 Intake Total 709.167 / 1639.167 930 / 1639.167 450 / 450 Output Total 900 / 2400 1500 / 2400 1250 / 1250 Balance -190.833 / -760.833 -570 / -760.833 -800 / -800 Weight 39.9 kg 38.4 kg Intake: IV 389.167 / 389.167 Oral 320 / 1250 930 / 1250 450 / 450 Output: Urine 900 / 2400 1500 / 2400 1250 / 1250 Other: Urine Color Yellow Yellow Yellow Urine Appearance Clear Clear Clear Urine Odor None None None Comment Pt states the 1000 ml was 3 voidings. Pt state 900 was total of two voids. Stool Size Small Stool Characteristics Soft Brown Voiding Methods Toilet Toilet Toilet Laboratory Results WBC 7.68 k/cumm (4.4-10.8) 12/10/18 07:10 RBC 3.61 m/cumm (4.00-5.20) L 12/10/18 07:10 Hgb 11.0 g/dL (12.0-15.5) L 12/10/18 07:10 Hct 33.0 % (36.0-46.0) L 12/10/18 07:10 MCV 91.4 fL (80-95) 12/10/18 07:10 MCH 30.5 pg (27.0-33.0) 12/10/18 07:10 MCHC 33.3 g/dL (32.0-36.0) 12/10/18 07:10 RDW 15.5 % (11.7-14.6) H 12/10/18 07:10 Plt Count 342 x1000/uL (130-400) 12/10/18 07:10 MPV 10.3 fL (8.0-11.0) 12/10/18 07:10 Immature Gran % 0.1 12/10/18 07:10 53.0 12/10/18 07:10 22.0 12/10/18 07:10 9.5 12/10/18 07:10 14.5 12/10/18 07:10 0.9 12/10/18 07:10 Absolute Neutrophils 4.07 k/cumm (1.2-6.7) 12/10/18 07:10 Absolute Lymphocytes 1.69 k/cumm (1.2-3.4) 12/10/18 07:10 Absolute Monocytes 0.73 k/cumm (0.11-0.7) H 12/10/18 07:10 Absolute Eosinophils 1.11 k/cumm (0.0-0.7) H 12/10/18 07:10 Absolute Basophils 0.07 k/cumm (0.0-0.2) 12/10/18 07:10 Diff reviewed 12/09/18 06:35 RBC Morphology See below 12/06/18 22:55 Present 12/06/18 22:55 1+ 12/06/18 22:55 1+ 12/06/18 22:55 PT 10.7 sec (9.3-11.0) 12/06/18 22:55 INR 1.1 (0.9-1.1) 12/06/18 22:55 APTT 24.0 sec (21.0-31.4) 12/06/18 22:55 Sample Site Left radial 12/07/18 00:13 pCO2 35 mmHg (34-47) 12/07/18 00:13 pO2 75 mmHg (83-108) L 12/07/18 00:13 O2 Saturation 95 % (94-98) 12/07/18 00:13 ABG pH 7.43 (7.35-7.45) 12/07/18 00:13 ABG HCO3 23 mmol/L (22-28) 12/07/18 00:13 ABG Total CO2 22 mmol/L (22-29) 12/07/18 00:13 ABG Base Excess -0.9 mmol/L (-3-3) 12/07/18 00:13 VBG pH Cancelled 12/06/18 23:40 VBG pCO2 Cancelled 12/06/18 23:40 VBG pO2 Cancelled 12/06/18 23:40 VBG HCO3 Cancelled 12/06/18 23:40 VBG Total CO2 Cancelled 12/06/18 23:40 VBG O2 Saturation Cancelled 12/06/18 23:40 VBG Base Excess Cancelled 12/06/18 23:40 60 % 12/07/18 00:13 Sodium 136 mmol/L (136-145) 12/12/18 06:15 Potassium 3.7 mmol/L (3.5-5.1) 12/12/18 06:15 Chloride 98 mmol/L (98-107) 12/12/18 06:15 Carbon Dioxide 25.0 mmol/L (21.0-32.0) 12/12/18 06:15 13.0 mmol/L (3-11) H 12/12/18 06:15 BUN 38 mg/dL (7-18) H 12/12/18 06:15 3.33 mg/dL (0.55-1.02) H 12/12/18 06:15 13.68 (mL/min/1.73m2) 12/12/18 06:15 Glucose 100 mg/dL (70-100) 12/12/18 06:15 Calcium 9.6 mg/dL (8.5-10.1) 12/12/18 06:15 Magnesium 2.3 mg/dL (1.8-2.4) 12/12/18 06:15 0.7 mg/dL (0.2-1.0) 12/07/18 06:30 AST 17 U/L (15-37) 12/07/18 06:30 ALT 16 U/L (12-78) 12/07/18 06:30 70 U/L (46-116) 12/07/18 06:30 < 0.05 ng/mL (0.00-0.06) 12/07/18 06:30 NT-Pro-B Natriuret Pep 35743 pg/mL (-299) H 12/06/18 22:55 6.5 g/dL (6.4-8.2) 12/07/18 06:30 3.2 g/dL (3.4-5.0) L 12/07/18 06:30 TSH 12.82 uIU/mL (0.36-3.74) H 12/07/18 06:30 Free T4 1.12 ng/dL (0.76-1.46) 12/07/18 06:30 Ur Random Sodium 71 mmol/L 12/10/18 17:25
[2018-12-12 11:59] VITALS: BP 158/73; PULSE 64; RESP 18; TEMP 36.8; O2SAT 96
[2018-12-12] MEDS: Isosorbide Mononitrate 30 MG TABCR 90 MG PO (12:00)
[2018-12-12 15:19] VITALS: BP 169/82; PULSE 65; RESP 16; TEMP 37.2; O2SAT 94
--- NOTE | 2018-12-12 15:39 | PDOC.CMPRO ---
Care Management Progress Note S/O: Charlene was taking a walk in the hallway with Rodolfo. She had hoped to go home today wut agrees with the need to remain in the hospital until the MD medically clears her for discharge. A: Charlene is a 68 year old woman admitted to [facility] on 12/06/18 with CHF, GAEL with CKD, and acute respiratory failure with hypoxia. P: Charlene will return home when medically cleared for discharge. Anticipate no additional services at time of discharge. She will transport via private vehicle with her , Rodolfo.
[2018-12-12 21:11] VITALS: BP 161/75; PULSE 74; RESP 16; TEMP 37.2; O2SAT 95
[2018-12-12] MEDS: Aspirin E.C. 81 MG TABEC PO (21:29)
[2018-12-12] MEDS: amLODIPine 10 MG TAB PO (21:29)
[2018-12-12] MEDS: Atorvastatin 20 MG TAB PO (21:29)
[2018-12-12] MEDS: Gabapentin 100 MG CAP 200 MG PO (21:29)
[2018-12-12 23:48] VITALS: BP 179/84; PULSE 72; RESP 18; TEMP 36.8; O2SAT 96
[2018-12-13] MEDS: Levothyroxine 50 MCG TAB PO (06:39)
[2018-12-13 07:16] LABS: HCT 34.6 % (36.0-46.0); HGB 11.6 g/dL (12.0-15.5); Mean Corp. HGB Concentration 33.5 g/dL (32.0-36.0); Mean Corpuscular Hemoglobin 30.6 pg (27.0-33.0); Mean Corpuscular Volume 91.3 fL (80-95); Mean Platelet Volume 10.4 fL (8.0-11.0); Platelet Count 325 x1000/uL (130-400); RBC 3.79 m/cumm (4.00-5.20); RBC Distribution Width 15.4 % (11.7-14.6); White Blood Cell Count 7.66 k/cumm (4.4-10.8)
[2018-12-13 07:33] LABS: Anion Gap 13.3 mmol/L (3-11); BUN 37 mg/dL (7-18); CO2 22.7 mmol/L (21.0-32.0); CREATININE 3.29 mg/dL (0.55-1.02); Calcium 9.4 mg/dL (8.5-10.1); Chloride 100 mmol/L (98-107); Estimated GFR 13.87 (mL/min/1.73m2); Glucose 96 mg/dL (70-100); Magnesium 2.3 mg/dL (1.8-2.4); Potassium 3.8 mmol/L (3.5-5.1); Sodium 136 mmol/L (136-145)
[2018-12-13 08:15] VITALS: BP 165/81; PULSE 67; RESP 16; TEMP 37.2; O2SAT 95
[2018-12-13] MEDS: Docusate Sodium 100 MG CAP PO (08:19)
[2018-12-13] MEDS: Labetalol 100 MG TAB 400 MG PO (08:19)
[2018-12-13] MEDS: Furosemide 20 MG TAB PO ×2 (08:20→15:01)
[2018-12-13] MEDS: Ascorbic Acid 500 MG TAB PO (08:20)
[2018-12-13] MEDS: Potassium Chloride 10 MEQ TABCR PO (08:20)
--- NOTE | 2018-12-13 11:01 | PDOC.CMPRO ---
Care Management Progress Note S/O-Met with Charlene today. She hopes she can go home today but realizes she will need to stay until MD clears her for d/c. A-She is 68 yo woman admitted with CHF, GAEL with CKD and acute respiratory failure with hypoxia. P-d/c home as per MD guan medically appropriate, no services anticipated. Rodolfo will transport.
[2018-12-13 11:36] VITALS: BP 157/72; PULSE 68; RESP 16; TEMP 36.9; O2SAT 98
[2018-12-13] MEDS: Isosorbide Mononitrate 30 MG TABCR 90 MG PO (11:52)
[2018-12-13] MEDS: Potassium Chloride 20 MEQ TABCR PO (11:52)
[2018-12-13] MEDS: Heparin 5,000 UNITS/ML VIAL 5000 UNITS SC (14:09)
--- NOTE | 2018-12-13 14:51 | W.PM.DS.N ---
Date of service: 12/13/18 Time of Service: 14:51 DS: Diagnosis Discharge Diagnosis (1) Hypertensive emergency: Status: Acute (2) Acute on chronic systolic (congestive) heart failure: Status: Acute (3) Acute kidney injury superimposed on CKD: Status: Acute (4) CKD (chronic kidney disease): Status: Chronic (5) Abdominal aortic aneurysm (AAA) without rupture: Status: Chronic (6) Essential hypertension: Status: Acute (7) Hypothyroidism: Status: Chronic (8) Dysphagia: Status: Acute (9) Advance directive on file: Status: Acute Discharge Plan Disposition Condition: Poor Discharge Details Chief Complaint: SOB Clinical Impression: CKD (chronic kidney disease), Acute on chronic systolic (congestive) heart failure, Acute respiratory failure with hypoxia Reason For Visit: CHF, GAEL WITH CKD, ANEMIA Admit Date/Time: 12/07/18 00:52 Admit Provider: Regan Monteiro Attending Provider: Akua Baugh Primary Care Provider: Sanjuanita Lee [facility] Hospital Course: Chief Complaint: HPI: 68 year old woman with a history of Hypertensive Emergency with Flash Pulmonary Edema requiring multiple prior hospitalizations, admitted from [facility] Emergency Department with a diagnosis of Hypertensive Emergency. Mrs. Harmon has a Past Medical History significant for CKD Stage 4, HTN, AAA, and Hypothyroidism. She was found to have Renal Artery Stenosis, for which she underwent a right sided Bypass in August of this year. There is mention of an acute Hepatitis B infection in the past, for which she underwent treatment. She has had prior episodes of Flash Pulmonary Edema in the setting of Hypertensive Emergency, as well as a prior hospitalization due to medication induced hypotension with syncope. Her other history includes CHF, with LVEF originally at 30% improved to 54% by recent ECHO, but now with mention of Diastolic Dysfunction. The patient initially presented to the ED with complaints of dyspnea, noted to be in respiratory distress and requiring BiPAP therapy and diuresis. She was noted to be hypertensive, and imaging confirmed evidence of pulmonary edema and CHF. She was admitted for further evaluation and treatment. This morning Mrs. Harmon reports continued improvement compared to her initial presentation, essentially with breathing at her baseline. She continues to maintain her sats on room air. Her renal function appears stable again today despite initiation of Furosemide, and with weight that appears stable and unchanged since yesterday - overall with an approximate 3 Kg weight loss. Blood pressure appears suboptimal but improved. No other events reported. She has remained afebrile. Hospital Course: (1) Hypertensive emergency: Prior history of uncontrolled hypertension, with past episodes of Hypertensive Urgency/Emergency requiring hospitalization. Mrs. Harmon had been well controlled from a blood pressure and symptoms standpoint until the initiation of Sodium Bicarb as an outpatient - this was felt to be a potential contributing factor to her volume overload and hypertensive findings at presentation. - Continue to avoid Sodium Bicarb for now. - Continue CCB and BB therapy. ABBY-I/ARB with significant elevation in creatinine in the past. Would avoid thiazide and Spironolactone as well. - Added a-se therapy to above regimen for better bp control - currently running systolic values of 150-170's, but with blood pressure improved to 138 prior to discharge with minimal titration in alpha se this morning. Currently at 2mg BID, which needs close monitoring and potential titration as an outpatient. - Currently on standing doses of lasix - downtitrated with stable weight and creatinine. Renal function again stable today, with weight at 38.3 Kg - was discharged at 41 Kg one month ago, and admitted at 41.5 Kg 6 days prior. - Discussed with Nephrology regarding utility of continuation of diuresis vs. attempts at better BP control. Recommendations for continuation of lasix. - Palliative care consult with recommendations for home rescue kit consisting of prn Clonidine and Diuretic therapy. (2) Acute on chronic systolic (congestive) heart failure: Noted EF 30%, improved to 54% in August of this year. Flash Pulmonary Edema and effusions in setting of Hypertensive Emergency, with CXR clearly showing failure. Also with evidence of Diastolic Dysfunction on ECHO (Elevated LV Filling pressure). Lasix gtt discontinued on 12/10, and patient is currently on oral Furosemide, downtitrated previously. Continue to monitor volume status, daily weights, and renal function carefully. (3) Acute kidney injury superimposed on CKD: Current creatinine appears stable. Previously discharged with a creatinine of 2.7, which appeared to be a stable finding in October. Current value of 3.3, stable for the last 4 days. Continue to avoid Nephrotoxins, and renally dose medications when appropriate. Current clearance calculated at 4. (4) CKD (chronic kidney disease): Stage IV CKD at baseline, currently with worsening but stable values. Nephrology has been filled in on patient's hospital course - plans for close outpatient follow-up, with repeat renal panel in 3-5 days post discharge to ensure stability. (5) Abdominal aortic aneurysm (AAA) without rupture: Noted. Continue BB, ASA, and statin therapy. (6) Essential hypertension: Blood pressure treatment as above. (7) Hypothyroidism: Levothyroxine dose increased in setting of TSH >10. Recommend repeat TSH in 4-6 weeks. (8) Dysphagia: Complaint of food 'sticking' - would recommend outpatinet EGD. Ensure follow-up with GI at time of discharge. (9) Advance directive on file: Full Code (10) DVT prophylaxis: Was maintained on SC Heparin. Home Meds and New Rx's Prescriptions: New terazosin 2 mg Capsule 2 mg PO BID Qty: 60 RF: 0 levothyroxine 50 mcg Tablet 50 mcg PO 0600 Qty: 30 RF: 0 furosemide 20 mg Tablet 20 mg PO BID@0830,1600 Qty: 60 RF: 0 furosemide 20 mg tablet 40 mg PO ONCE PRN (Reason: weight gain) Qty: 14 RF: 0 Continued gabapentin 100 mg capsule 200 mg PO HS RF: 0 aspirin [Aspir-81] 81 MG tablet,delayed release (DR/EC) 81 mg PO DAILY RF: 0 amlodipine 10 mg tablet 10 mg PO DAILY RF: 0 clonidine HCl 0.1 mg tablet 0.1 mg PO PRN RF: 0 atorvastatin 20 mg tablet 20 mg PO QHS RF: 0 isosorbide mononitrate 30 mg tablet extended release 24 hr 90 mg PO DAILY RF: 0 labetalol 200 mg tablet 400 mg PO BID Qty: 120 RF: 0 ferrous sulfate [Jessie-Time] 325 mg (65 mg iron) Tablet RF: 0 acetaminophen [Tylenol] 325 mg Tablet 650 mg PO Q6H PRN PRNQty: 0 RF: 0 Discontinued levothyroxine 25 mcg capsule 25 mcg PO DAILY RF: 0 sodium bicarbonate 650 mg tablet 1,300 mg PO BID RF: 0 Discharge Instructions Stand Alone Forms: Nursing Discharge Form [place] [place] - (Sensation of early satiety/food just sitting in the stomach) Sanjuanita Lee MD [Primary Care Provider] - Activity:: No Strenuous Activity Activity:: No Strenuous Activity Equipment/Supplies:: No Equipment Needed Diet:: Low Sodium Exam Narrative Exam Narrative: General: Patient appears comfortable, AAOX3, NAD Neck: Supple CV: Regular, nontachycardic, S1S2, No rubs, murmurs, or gallops. Pulmonary: Minimal bibasilar crackles athat appear vastly improved since initial exam. No wheezing. Abdomen: + Bowel Sounds, soft, nontender, nondistended Vascular: No lower extremity edema Psych: Normal mood and affect. DS: Data Vitals/I&O Vitals and I&O: Vital Signs Temperature 36.9 C 12/13/18 11:36 Temperature Source Tympanic 12/13/18 11:36 Pulse 68 12/13/18 11:36 Pulse Rhythm Regular 12/13/18 10:19 Pulse 69 12/09/18 04:01 Respiratory Rate 16 12/13/18 11:36 Respiratory Effort Non-Labored 12/13/18 10:19 Respiratory Depth Normal 12/13/18 10:19 Respiratory Pattern Normal 12/13/18 10:19 Blood Pressure 157/72 H 12/13/18 11:36 Blood Pressure Mean 102 12/09/18 12:43 Blood Pressure Position Sitting 12/09/18 12:43 Pulse Oximetry 98 12/13/18 11:36 Oxygen Delivery Method Room Air 12/13/18 11:36 Oxygen Flow Rate 0 12/13/18 11:36 Fraction of Inspired Oxygen (FIO2) 25 12/10/18 23:26 Pain Level 0 12/12/18 21:11 Comment 12/12/18 15:19 Intake & Output 12/12/18 12/13/18 12/13/18 23:59 11:59 23:59 Intake Total 970 / 1670 240 / 240 Output Total 1600 / 2850 250 / 250 Balance -630 / -1180 -250 / -10 240 / -10 Weight 38.3 kg Intake: Oral 970 / 1670 240 / 240 Output: Urine 1600 / 2850 250 / 250 Other: Urine Color Yellow Yellow Urine Appearance Clear Clear Urine Odor Normal Voiding Methods Toilet Completed studies during hospitalization [Text1]: Exam(s) 12/06/2018 a RAD:XR portable chest AP SYMPTOM/DIAGNOSIS: SOB, HYPOXIC PORTABLE AP CHEST: 12/06 The heart is enlarged. There are apparent small bilateral pleural effusions and diffuse bilateral pulmonary interstitial infiltrates. The findings are consistent with CHF. Other etiologies including infectious process not excluded. Appropriate follow up studies requested. --------- Exam(s) 12/06/2018 EXAM: XR Chest, 1 View EXAM DATE/TIME: 12/06/2018 11:06 PM CLINICAL HISTORY: 68 years old, female; Shortness of breath and other: Hypoxic; Patient HX: SOB, hypoxic TECHNIQUE: Imaging protocol: XR of the chest, 1 view. COMPARISON: CR XR CHEST 2V PA LATERAL 11/13/2018 10:03 AM FINDINGS: Lungs: Diffuse bilateral interstitial opacities. Pleural space: No pleural effusion or pneumothorax. Heart/Mediastinum: Cardiac and mediastinal silhouettes are unremarkable. Bones/joints: No acute osseus lesion or fracture. IMPRESSION: Diffuse bilateral interstitial opacities, which could reflect pulmonary interstitial edema. -------- Exam(s) a RAD:XR portable chest AP SYMPTOM/DIAGNOSIS: F/U PULMONARY EDEMA PORTABLE AP CHEST: 12/09 0855 HOURS Examination was compared with previous examination of 12/06/18. The previous examination showed cardiomegaly, bilateral intrapulmonary interstitial infiltrates and bilateral pleural effusions. The interstitial infiltrates are slightly less prominent on today's examination. Small bilateral pleural effusions persist. Cardiac size appears decreased. CONCLUSION: Findings suggesting interval improvement in CHF. 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) Cardiomyopathy (Chronic) CKD (chronic kidney disease) (Chronic) Creatinine elevation (Inactive) Hearing loss (Chronic) Hepatitis B (Chronic 02/24/13) High blood cholesterol (Chronic) HTN (hypertension) (Chronic) Jaundice (Inactive 02/28/13) 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) Renal artery stenosis (Chronic) Renovascular hypertension (Chronic) Surgical History Bilateral salpingectomy with oophorectomy (Chronic) Colonoscopy - MAC (Resolved 09/27/12) EGD W/ BS (Resolved 08/12/12) Hysterectomy, Laproscopic (Chronic ~01/1984) Status post surgery (Acute 09/07/18) Family History Grandmother Essential hypertension Social History Smoking/Tobacco Use Status: Former Tobacco Use Alcohol Intake: never Drug use: Never Substance use type: does not use Foster care: No Household members: spouse Housing: house Number of Children: 2 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
[2018-12-13 14:57] VITALS: BP 138/74; PULSE 71; RESP 16; TEMP 36.7; O2SAT 96
--- NOTE | 2018-12-13 15:02 | CMDISCH_ITS ---
LACE Index Scoring Tool - Questions: Length of Stay (in days): 7 - 13 Acuity (Admit via E.D.?): Yes E.D. Visits: 5 - Answers: Total Score: 12 Risk of Readmission: High Risk Care Management Discharge Reason for Hospitalization: CHF, hypoxia, GAEL with CKD, anemia Discharge Plan: She is being discharged home with her today. No HH servi noemi are anticipated. Patient/Family Education Needs: RN to review d/c instructions with Charlene and her re meds and activity levels. Review of Ask me Now questions.
== END 2018-12-13 16:06 | disposition home or self-care (01) | DRG 304 ==
LOC: ER 12-07 01:31 → ICU 12-07 01:45 → MS 12-09 14:40
PROVIDERS: Emergency Medicine; Internal Medicine; Admitting Provider Family Medicine; Emergency Provider Physician Assistant; PCP Internal Medicine; Visit Provider Internal Medicine
DX: I16.1 Hypertensive emergency (principal); I50.23 Acute on chronic systolic (congestive) heart failure; J96.01 Acute respiratory failure with hypoxia; N17.9 Acute kidney failure, unspecified; N18.4 Chronic kidney disease, stage 4 (severe); I13.0 Hypertensive heart and chronic kidney disease with heart failure and stage 1 through stage 4 chronic kidney disease, or unspecified chronic kidney disease; Z87.891 Personal history of nicotine dependence; E03.9 Hypothyroidism, unspecified; R13.10 Dysphagia, unspecified; I71.4 Abdominal aortic aneurysm, without rupture; D63.1 Anemia in chronic kidney disease; Z51.5 Encounter for palliative care
CPT/HCPCS: 36415; 80048; 80053; 82805; 85027; 93005; 96374; 96375; 99223; 99232; 99233; 99239; 99255; 99285; 99291; 36600; 71045; 83735; 83880; 84300; 84439; 84443; 84484; 85025; 85610; 85730; 93010; 94660; 99221; J1644; J1940; J3480

== ENCOUNTER 2019-01-07 15:29 | Emergency (ER) | payer MEDICARE, BC, SELFPAY ==
[2019-01-07] VITALS (26 sets, daily range): BP systolic 170–188; BP diastolic 89–110; PULSE 79–94; RESP 14–79; TEMP 36.6; O2SAT 87–94
--- NOTE | 2019-01-07 15:52 | ED.GENADUL_ITS ---
Discharge Plan Disposition Patient Disposition: [facility] Condition: Stable Discharge Details Chief Complaint: SOB Clinical Impression: Hypertensive emergency, Abdominal aortic aneurysm, Chest pain, Elevated troponin Primary Care Provider: Sanjuanita Lee ED Provider: Annita Lares Home Meds and New Rx's Prescriptions: No Action (DME) Oxygen Tank See Rx Instructions .ROUTE .MEDSUPPLY Qty: 1 RF: 0 aspirin [Aspir-81] 81 MG tablet,delayed release (DR/EC) 81 mg PO DAILY RF: 0 amlodipine 10 mg tablet 2.5 mg PO DAILY RF: 0 Hold Instructions: Changed by Provider clonidine HCl 0.1 mg tablet 0.1 mg PO PRN RF: 0 atorvastatin 20 mg tablet 20 mg PO QHS RF: 0 isosorbide mononitrate 30 mg tablet extended release 24 hr 90 mg PO DAILY RF: 0 Venofer 100 mg iron/5 mL solution 300 mg IV QWEEK RF: 0 levothyroxine 50 mcg tablet 50 mcg PO 0600 Qty: 90 RF: 1 gabapentin 100 mg capsule 200 mg PO HS Qty: 180 RF: 2 labetalol 200 mg tablet 400 mg PO HS RF: 0 ranitidine HCl [Zantac] 150 mg Tablet 150 mg PO BID RF: 0 acetaminophen [Tylenol] 325 mg Tablet 650 mg PO Q6H PRN PRNQty: 0 RF: 0 Discharge Data Discharge Date/Time-TO BE ENTERED AT DEPARTURE: 01/07/19 19:48 Medical Decision Making 68 year old woman with a history of Hypertensive Emergency with Flash Pulmonary Edema requiring multiple prior hospitalizations, CKD Stage 4, HTN, AAA, hypothyroidism, renal artery stenosis w/ h/o R sided bypass in 2018, CHF w. LVEF originally at 30% improved to 54% on recent echo who presents with shortness of breath, lower rib pain and upper abdominal pain since this morning. Patient has a history of chronic shortness of breath, rib and abdominal pains and states this is consistent with her previous episodes associated with pulmonary edema. BP 188/102. O2 sat 88% on room air. EKG notes a rate of 83, sinus, with [address] depression in lead II, aVF, [address] depression in V5 and V6 which have been seen in previous EKG. 1750 --CT chest notes bilateral pleural effusions consistent with CHF and a 3.5 cm thoracic aortic aneurysm which has increased in size and a 3.9 cm abdominal aortic aneurysm which appears larger with some indistinctness of the lateral wall which could be an early aneurysmal rupture, but lack of IV contrast limits this. [facility] vascular surgery paged and images sent. Patient's BP still 188/105. Will give a dose of 40 mg Lasix, 4 mg morphine, if blood pressure does not improve, will give 20 mg labetalol IV. Labs reviewed. Troponin 0.17. 1840 -- d/w [facility] vascular surgery - he reviewed images and does not think this is an obvious rupture but could be a lymph node. As pt is having pain in this setting, accepts pt for transfer to the ED for further evaluation. Accepting physician Dr. Trevizo. Dr. Trevizo also notified of elevated yet indeterminate troponin, and ST depression in inferior and lateral leads which does not appear significantly changed from previous EKG. He would like [facility] cardiology involved as this presentation most likely not due to aneurysm rupture, but could be acute IN. Repeat EKG at this time notes some improvement with [address] depression in 2, V5 and V6, no acute ST elevation. No acute ST elevation. Repeat troponin uptrending 0.22. Blood pressure still hypertensive. 170/110. Case discussed with [facility] cardiology - initially requested a labetalol gtt but then only wanted beta se pushes to keep BP normotensive. NO anticoagulation at this time. Medical Records Medical records reviewed: Yes I reviewed the patient's medical records. Imaging Data Radiologic Study: Radiologist's impression: Addendum created by Bam Rosales MD on 01/07/2019 5:48:23 PM EDT THIS REPORT CONTAINS FINDINGS THAT MAY BE CRITICAL TO PATIENT CARE. The findings were verbally communicated via telephone conference with Annita Porras at 5:47 PM EDT on 01/07/2019. The findings were acknowledged and understood. Initial report created on 01/07/2019 5:44:[address] Chest Without Contrast EXAM DATE/TIME: 01/07/2019 4:19 PM CLINICAL HISTORY: 68 years old, female; Patient HX: Shortness of breath, chronic upper abd pain; Additional info: R/O chf, acute abd abnormality; Per PT: Symptoms since xochitl TECHNIQUE: Imaging protocol: Computed tomography of the chest without contrast. COMPARISON: CT ABD PELVIS WO CONTRAST 02/26/2013 8:20 PM FINDINGS: Lungs: There is interlobular septal thickening with patchy ground glass opacities bilaterally. There are dependent opacities in the lower lobes right greater than left. Pleural space: There is moderate right greater than left pleural effusions. Heart: Cardiomegaly. There are coronary artery calcifications present. Aorta: Aorta demonstrates moderate atherosclerotic calcification. There is a 3.5 cm distal thoracic aortic aneurysm has increased in size since the previous study dated 04/21/2018. Lymph nodes: Mediastinal lymph nodes in the pretracheal and subcarinal regions. These appear without interval change from prior CT dated 04/21/2018. Bones/joints: Degenerative changes of the thoracic spine without acute osseous abnormality. Soft tissues: Unremarkable. IMPRESSION: 1. Findings most consistent with interstitial pulmonary edema with bilateral pleural effusions. Please correlate with the patient's clinical findings. 2. Stable mediastinal adenopathy without interval change. 3. 3.5 cm distal thoracic aortic aneurysm which is increased in size since 04/21/2018. CT Abdomen and Pelvis Without Contrast EXAM DATE/TIME: 01/07/2019 4:19 PM CLINICAL HISTORY: 68 years old, female; Patient HX: Shortness of breath, chronic upper abd pain; Additional info: R/O chf, acute abd abnormality; Per PT: Symptoms since xochitl TECHNIQUE: Imaging protocol: Computed tomography of the abdomen and pelvis without contrast. COMPARISON: CT ABD PELVIS WO CONTRAST 02/26/2013 8:20 PM FINDINGS: Liver: Unenhanced liver appears unremarkable. Gallbladder and bile ducts: There are several subcentimeter gallstones within the gallbladder. There is mild thickening of the gallbladder wall. There is a small amount of pericholecystic fluid. Pancreas: The pancreas is normal. Spleen: Unenhanced spleen appears unremarkable. Adrenals: No adrenal mass is present. Kidneys and ureters: There is a subcentimeter cyst in the midpole of the left kidney. The kidneys are otherwise unremarkable unenhanced morphology without evidence of hydronephrosis. Stomach and bowel: There is a large amount of stool present throughout the colon. Appendix: No evidence of appendicitis. Intraperitoneal space: There is a small amount of perihepatic fluid in addition to a small amount of free fluid in the abdomen and pelvis present. Vasculature: There is a bilobed abdominal aortic aneurysm measuring up to 3.9 cm increased in size since the previous study dated 04/21/2018. Lack of IV contrast limits detail. It appears infrarenal. There is a 1.5 x 1.0 cm outpouching of the left postero-lateral distal abdominal aorta appears to represent a small pseudoaneurysm that is larger than previous. In addition there is indistinctness of the left lateral border of the abdominal aortic aneurysm seen best on image 71 series 2. Contained or early rupture cannot be excluded without IV contrast administration. Lymph nodes: There is retroperitoneal para-aortic lymphadenopathy. Bladder: Unremarkable as visualized. Reproductive: Unremarkable as visualized. Bones/joints: Degenerative changes of the lumbar spine without acute osseous abnormality. Soft tissues: Unremarkable. IMPRESSION: 1. Lack of IV contrast administration significantly limits detail. There is a bilobed abdominal aortic aneurysm measuring up to 3.9 cm and appears larger than previous. 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 In addition there is indistinctness of the left lateral wall of the aneurysm focally seen best on image 71 series 2, early aneurysmal rupture cannot be excluded. Followup post contrast study or MRI is recommended. 2. Small amount of free fluid in the abdomen and pelvis present. 3. Several small gallstones are present with mild thickening of the gallbladder wall. This could be further evaluated with right upper quadrant ultrasound. 4. Para-aortic lymphadenopathy. Lab Data Lab results reviewed: Yes I reviewed the patient's lab results. Labs: Laboratory Tests Range/Units 01/07/19 01/07/19 01/07/19 15:50 15:50 18:53 WBC (4.4-10.8) k/cumm 9.35 RBC (4.00-5.20) m/cumm 3.92 L Hgb (12.0-15.5) g/dL 12.1 Hct (36.0-46.0) % 34.7 L MCV (80-95) fL 88.5 MCH (27.0-33.0) pg 30.9 MCHC (32.0-36.0) g/dL 34.9 RDW (11.7-14.6) % 14.9 H Plt Count (130-400) x1000/uL 309 MPV (8.0-11.0) fL 10.9 Immature Gran % 0.5 Neutrophils % 73.6 Lymphocytes % 13.6 Monocytes % 6.1 Eosinophils % 5.3 Basophils % 0.9 Absolute Neutrophils (1.2-6.7) k/cumm 6.88 H Absolute Lymphocytes (1.2-3.4) k/cumm 1.27 Absolute Monocytes (0.11-0.7) k/cumm 0.57 Absolute Eosinophils (0.0-0.7) k/cumm 0.50 Absolute Basophils (0.0-0.2) k/cumm 0.08 Sodium (136-145) mmol/L 129 L Potassium (3.5-5.1) mmol/L 3.9 Chloride (98-107) mmol/L 93 L Carbon Dioxide (21.0-32.0) mmol/L 18.7 L Anion Gap (3-11) mmol/L 17.3 H BUN (7-18) mg/dL 61 H Creatinine (0.55-1.02) mg/dL 3.73 H* Estimated GFR/1.73 m2 (mL/min/1.73m2) 12.00 Glucose (70-100) mg/dL 144 H Calcium (8.5-10.1) mg/dL 9.2 Magnesium (1.8-2.4) mg/dL 2.1 Total Bilirubin (0.2-1.0) mg/dL 1.1 H AST (15-37) U/L 35 ALT (14-59) U/L 25 Alkaline Phosphatase (46-116) U/L 94 Troponin I (0.00-0.06) ng/mL 0.17 H* 0.22 H* Total Protein (6.4-8.2) g/dL 7.1 Albumin (3.4-5.0) g/dL 3.4 ECG Data Attestation: I personally reviewed and interpreted this ECG (s) as follows: Interpretation: #1 -Rate of 83, sinus, [address] depression in 2 and aVF, [address] depression in V5 and V6. SC 158. QTc 484. No significant change from previous EKG 11/2018. #2 -Rate of 90, sinus, [address] depression in 2, V5 and V6 which appears improved from previous. No acute ST elevation. SC 158. QTc 467. HPI General Mode of arrival: ambulatory . Date/Time Provider Initiated Documentation: 01/07/19 15:41 . Limitations to Documentation: no limitations . Information obtained by: patient and family . HPI Narrative: Patient is a 68-year-old female who presents the ED with a complaint of shortness of breath since early this morning. She also admits to lower rib pain and upper abdominal pain since this morning. She states her symptoms became worse this afternoon. She states she has had similar episodes of both shortness of breath, rib and abdominal pain for the past few years that has occurred several times. She states her shortness of breath has been usually due to CHF and her abdominal pain has usually been due to reflux. Patient has a history of renal artery bypass due to renal artery stenosis in August 2018 at [facility]. She also states she received an iron transfusion this afternoon that was ordered by her supervisor last model department. She denies any fever, cough, nausea, vomiting. She states she takes labetalol for her blood pressure if greater than 140 and clonidine if her blood pressure is greater than 180. Related Data Home Medications Medication Instructions Recorded Confirmed aspirin [Aspir-81] 81 mg PO DAILY tab-cap 04/19/13 01/07/19 acetaminophen [Tylenol] 650 mg PO Q6H PRN PRN #0 tab 08/29/18 01/07/19 amlodipine 10 mg tablet 2.5 mg PO DAILY 10/08/18 01/07/19 atorvastatin 20 mg tablet 20 mg PO QHS 10/08/18 01/07/19 clonidine HCl 0.1 mg tablet 0.1 mg PO PRN tab 10/08/18 01/07/19 isosorbide mononitrate 30 mg 90 mg PO DAILY tab 10/08/18 01/07/19 tablet,extended release 24 hr Oxygen #1 each 12/28/18 12/28/18 gabapentin 100 mg capsule 200 mg PO HS #180 cap 01/05/19 01/07/19 iron sucrose 100 mg iron/5 mL 300 mg IV QWEEK ml 01/05/19 01/07/19 intravenous solution levothyroxine 50 mcg tablet 50 mcg PO 0600 #90 tab 01/05/19 01/07/19 labetalol 400 mg PO HS 01/07/19 01/07/19 ranitidine HCl [Zantac] 150 mg PO BID 01/07/19 01/07/19 Previous Rx's Medication Instructions Recorded acetaminophen [Tylenol] 650 mg PO Q6H PRN PRN #0 tab 08/29/18 Oxygen #1 each 12/28/18 gabapentin 100 mg capsule 200 mg PO HS #180 cap 01/05/19 levothyroxine 50 mcg tablet 50 mcg PO 0600 #90 tab 01/05/19 Allergies Allergy/AdvReac Type Severity Reaction Status Date / Time lisinopril AdvReac Mild Rise in Verified 01/07/19 15:43 creatinine General Stated Complaint: SOB BILLY: 2 Review of Systems Review of Systems ROS Unobtainable: All systems reviewed & are unremarkable except as noted in HPI and below Constitutional Constitutional: Reports as per HPI, Denies chills and Denies fever(s) Eyes Eyes: Denies blurry vision ENT Ears, Nose, Mouth, and Throat: Denies dizziness, Denies sore throat and Denies throat swelling Cardiovascular Cardiovascular: Reports chest pain and Reports dyspnea Respiratory Respiratory: Denies cough and Reports dyspnea Gastrointestinal Gastrointestinal: Reports abdominal pain, Denies diarrhea and Denies vomiting Genitourinary Genitourinary: Denies hematuria and Denies dysuria Musculoskeletal Musculoskeletal: Denies back pain and Denies numbness Integumentary/Breasts Skin/Breast: Denies lesions and Denies rash Neurologic Neurologic: Denies dizziness, Denies focal weakness and Denies numbness Allergic/Immunologic Allergic/Immunologic: Denies throat swelling [facility] Medical History Abdominal aortic aneurysm (AAA) without rupture (Chronic 01/04/16) 02/26/13-CT scan infra-renal, 3.1 cm, 03/16/2018 [facility] Vascular Dr Moody. 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 EGD W/ BS (Resolved 08/12/12) DR CANCHOLA Hysterectomy, Laproscopic (Chronic ~01/1984) Status post surgery (Acute 09/07/18) right external iliac to right renal artery bypass with reversed rifht greater saphenous vein, [facility] Family History Grandmother Essential hypertension Mother , age 68 of ovarian cancer Ovarian cancer Father , age 60 of emphysema Emphysema lung Smoker Sister Essential hypertension Brother , age 34 of suicide Suicide Son No problems noted. Daughter No problems noted. 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 Pets and animals: Yes Current gender identity: female What is your relationship status?: How often do you talk on the phone with friends or family?: three or more times per week How often do you get together with friends or relatives?: once per week Panel score (0-1 are the most socially isolated patients): 2 What type of physical activity do you participate in: none Special yanira needs: No Agree to transfusion: Yes Seatbelt use: always Drive intox or ride w/intox commercial truck 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 She felt her health was under control until surgery at [facility]. Surprised to find herself so debilitated. Exam Const General: cooperative and no acute distress [facility] Head: normal to inspection Face and sinus: normal facial exam Eyes General: appearance normal, both eyes and all related structures EOM: EOM intact bilaterally Neck Neck: normal visual inspection and No submandibular swelling Lymphatic: no lymphadenopathy noted Chest Chest: normal inspection of the chest and no tenderness Resp Effort & Inspection: normal respiratory effort and able to speak in complete sentences Auscultation: crackles bilaterally at the base Cardio Rate: regular rate Rhythm: regular rhythm GI Inspection: normal to inspection Palpation: soft, not firm, not rigid and tender (Across upper abdomen) Auscultation: hypoactive bowel sounds Back/Spine/Pelvis Thoracic/Lumbar Spine: thoracic and lumbar spine normal to inspection Skin General skin exam: no rashes or lesions noted Neuro General: alert, awake and oriented x3 Cognition: normal cognition Speech: speech normal Motor: muscle tone normal throughout Sensory Exam: no sensory deficits noted Extrem General: normal to inspection, full ROM, normal capillary refill, no calf tenderness bilaterally and no edema Psych Appearance: grossly normal Mental Status: mental status grossly normal Speech and Movement: speech and movement normal Affect: normal affect Course Vital Signs Vital signs: Vital Signs Temperature 97.9 F 01/07/19 15:32 Pulse 84 01/07/19 15:32 Respiratory Rate 16 01/07/19 15:32 Blood Pressure 177/89 H 01/07/19 15:32 Pulse Oximetry 88 L 01/07/19 15:32 Temperature 97.9 F 01/07/19 15:32 Temperature Source Skin 01/07/19 15:32 Pulse 84 01/07/19 15:32 Respiratory Rate 16 01/07/19 15:32 Blood Pressure 177/89 H 01/07/19 15:32 Blood Pressure Position Sitting 01/07/19 15:32 Pulse Oximetry 88 L 01/07/19 15:32 Oxygen Delivery Method Room Air 01/07/19 15:32 Oxygen Flow Rate 0 01/07/19 15:32
[2019-01-07 16:07] LABS: Abs Immature Grans 0.05 k/cumm (0.0-0.09); Absolute Basophil Count 0.08 k/cumm (0.0-0.2); Absolute Lymphocyte Count 1.27 k/cumm (1.2-3.4); Absolute Monocyte Count 0.57 k/cumm (0.11-0.7); Absolute Neutrophil Count 6.88 k/cumm (1.2-6.7); Basophils % 0.9; Eosinophils % 5.3; HCT 34.7 % (36.0-46.0); HGB 12.1 g/dL (12.0-15.5); Immature Grans % 0.5; Lymphocytes % 13.6; Mean Corp. HGB Concentration 34.9 g/dL (32.0-36.0); Mean Corpuscular Hemoglobin 30.9 pg (27.0-33.0); Mean Corpuscular Volume 88.5 fL (80-95); Mean Platelet Volume 10.9 fL (8.0-11.0); Monocytes % 6.1; Neutrophils % 73.6; Platelet Count 309 x1000/uL (130-400); RBC 3.92 m/cumm (4.00-5.20); RBC Distribution Width 14.9 % (11.7-14.6); White Blood Cell Count 9.35 k/cumm (4.4-10.8)
--- NOTE | 2019-01-07 16:17 | DI.CT_ITS ---
SYMPTOM/DIAGNOSIS: SOB, CHRONIC UPPER ABD PAIN CHEST/ABDOMEN AND PELVIC CT: The study was carried out without contrast enhancement. CHEST: Septal thickening and patchy ground glass densities are noted in the lungs. Also dependent densities are noted in the lower lobes, right more prominent than left. There is a moderate sized bilateral pleural effusion, right greater than left. The heart is enlarged. Coronary artery calcification is demonstrated. There are moderate atherosclerotic changes involving the aorta. Note is made of a 3.5 cm. distal thoracic aortic aneurysm which has increased somewhat in size when compared with the previous study dated 04/21/18. Mediastinal lymph nodes in the pretracheal subcarinal regions are unchanged in size when compared with the previous study of 04/21/18. No acute bony abnormality is seen. The soft tissues are unremarkable. SUMMARY: Findings consistent with interstitial pulmonary edema. There are bilateral pleural effusions. Stable mediastinal adenopathy is demonstrated without interval change. Note is also made of a 3.5 cm. distal thoracic aortic aneurysm which has increased in size when compared with the previous study of 04/21/18. ABDOMEN AND PELVIC: There is no abnormality involving the liver. There are small gallstones in the gallbladder and mild thickening of the gallbladder wall. There is a small quantity of pericholecystic fluid. The pancreas and spleen appear unremarkable. There is no evidence of an adrenal abnormality. A small cyst is noted in the mid pole of the left kidney. The kidneys are otherwise unremarkable with no evidence of hydronephrosis. There is no evidence of bowel obstruction. A large amount of fecal material is noted throughout the colon. There is nothing to suggest an acute appendix. A small amount of perihepatic fluid is identified in addition to a small amount of free fluid in the abdomen and pelvis. There is a bi-lobed abdominal aortic aneurysm measuring up to 3.9 cm. which has increased in size since the previous study of 04/21/18. The lack of IV contrast limits the detail in this case. The aneurysm appears to be infrarenal. There is also a 1.5 by 1 cm. outpouching of the left posterior lateral distal abdominal aorta which appears to represent a small pseudoaneurysm that may also be somewhat larger than on the previous study. In addition, there is indistinctness of the left lateral border of the abdominal aortic aneurysm. A contained or early rupture cannot be excluded without the presence of IV contrast material. There is retroperitoneal para-aortic lymphadenopathy. The bladder and reproductive organs are unremarkable. No acute bony abnormality is seen. The soft tissues are unremarkable. SUMMARY: The examination is limited by the absence of IV contrast material. Note is made of a bi-lobed aortic aneurysm measuring up to 3.9 cm. which appears larger than on the previous study. There is a small 1.5 cm. pseudoaneurysm distally as described above. In addition, there is indistinctness of the left lateral wall of the aneurysm focally and early abdominal rupture cannot be excluded. A follow up post contrast enhanced examination is recommended. Note is also made of a small amount free fluid in the abdomen and pelvis. There is note also made of cholelithiasis and some mild thickening of the gallbladder wall. This finding could be further evaluated with ultrasound. In addition, there is para-aortic lymphadenopathy.
[2019-01-07 16:27] LABS: ALT 25 U/L (14-59); AST 35 U/L (15-37); Albumin 3.4 g/dL (3.4-5.0); Alkaline Phosphatase 94 U/L (46-116); Anion Gap 17.3 mmol/L (3-11); BUN 61 mg/dL (7-18); Bilirubin, Total 1.1 mg/dL (0.2-1.0); CO2 18.7 mmol/L (21.0-32.0); Calcium 9.2 mg/dL (8.5-10.1); Chloride 93 mmol/L (98-107); Glucose 144 mg/dL (70-100); Magnesium 2.1 mg/dL (1.8-2.4); Potassium 3.9 mmol/L (3.5-5.1); Sodium 129 mmol/L (136-145); Total Protein 7.1 g/dL (6.4-8.2)
[2019-01-07 16:33] LABS: CREATININE 3.73 mg/dL (0.55-1.02)
[2019-01-07 16:34] LABS: Troponin I 0.17 ng/mL (0.00-0.06)
--- NOTE | 2019-01-07 17:45 | DI.VRAD_ITS ---
Addendum created by Bam Rosales MD on 01/07/2019 5:48:23 PM EDT THIS REPORT CONTAINS FINDINGS THAT MAY BE CRITICAL TO PATIENT CARE. The findings were verbally communicated via telephone conference with nAnita Porras at 5:47 PM EDT on 01/07/2019. The findings were acknowledged and understood. Initial report created on 01/07/2019 5:44:56 PM EDT EXAM: CT Chest Without Contrast EXAM DATE/TIME: 01/07/2019 4:19 PM CLINICAL HISTORY: 68 years old, female; Patient HX: Shortness of breath, chronic upper abd pain; Additional info: R/O chf, acute abd abnormality; Per PT: Symptoms since xochitl TECHNIQUE: Imaging protocol: Computed tomography of the chest without contrast. COMPARISON: CT ABD PELVIS WO CONTRAST 02/26/2013 8:20 PM FINDINGS: Lungs: There is interlobular septal thickening with patchy ground glass opacities bilaterally. There are dependent opacities in the lower lobes right greater than left. Pleural space: There is moderate right greater than left pleural effusions. Heart: Cardiomegaly. There are coronary artery calcifications present. Aorta: Aorta demonstrates moderate atherosclerotic calcification. There is a 3.5 cm distal thoracic aortic aneurysm has increased in size since the previous study dated 04/21/2018. Lymph nodes: Mediastinal lymph nodes in the pretracheal and subcarinal regions. These appear without interval change from prior CT dated 04/21/2018. Bones/joints: Degenerative changes of the thoracic spine without acute osseous abnormality. Soft tissues: Unremarkable. IMPRESSION: 1. Findings most consistent with interstitial pulmonary edema with bilateral pleural effusions. Please correlate with the patient's clinical findings. 2. Stable mediastinal adenopathy without interval change. 3. 3.5 cm distal thoracic aortic aneurysm which is increased in size since 04/21/2018. EXAM: CT Abdomen and Pelvis Without Contrast EXAM DATE/TIME: 01/07/2019 4:19 PM CLINICAL HISTORY: 68 years old, female; Patient HX: Shortness of breath, chronic upper abd pain; Additional info: R/O chf, acute abd abnormality; Per PT: Symptoms since xochitl TECHNIQUE: Imaging protocol: Computed tomography of the abdomen and pelvis without contrast. COMPARISON: CT ABD PELVIS WO CONTRAST 02/26/2013 8:20 PM FINDINGS: Liver: Unenhanced liver appears unremarkable. Gallbladder and bile ducts: There are several subcentimeter gallstones within the gallbladder. There is mild thickening of the gallbladder wall. There is a small amount of pericholecystic fluid. Pancreas: The pancreas is normal. Spleen: Unenhanced spleen appears unremarkable. Adrenals: No adrenal mass is present. Kidneys and ureters: There is a subcentimeter cyst in the midpole of the left kidney. The kidneys are otherwise unremarkable unenhanced morphology without evidence of hydronephrosis. Stomach and bowel: There is a large amount of stool present throughout the colon. Appendix: No evidence of appendicitis. Intraperitoneal space: There is a small amount of perihepatic fluid in addition to a small amount of free fluid in the abdomen and pelvis present. Vasculature: There is a bilobed abdominal aortic aneurysm measuring up to 3.9 cm increased in size since the previous study dated 04/21/2018. Lack of IV contrast limits detail. It appears infrarenal. There is a 1.5 x 1.0 cm outpouching of the left postero-lateral distal abdominal aorta appears to represent a small pseudoaneurysm that is larger than previous. In addition there is indistinctness of the left lateral border of the abdominal aortic aneurysm seen best on image 71 series 2. Contained or early rupture cannot be excluded without IV contrast administration. Lymph nodes: There is retroperitoneal para-aortic lymphadenopathy. Bladder: Unremarkable as visualized. Reproductive: Unremarkable as visualized. Bones/joints: Degenerative changes of the lumbar spine without acute osseous abnormality. Soft tissues: Unremarkable. IMPRESSION: 1. Lack of IV contrast administration significantly limits detail. There is a bilobed abdominal aortic aneurysm measuring up to 3.9 cm and appears larger than previous. 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 In addition there is indistinctness of the left lateral wall of the aneurysm focally seen best on image 71 series 2, early aneurysmal rupture cannot be excluded. Followup post contrast study or MRI is recommended. 2. Small amount of free fluid in the abdomen and pelvis present. 3. Several small gallstones are present with mild thickening of the gallbladder wall. This could be further evaluated with right upper quadrant ultrasound. 4. Para-aortic lymphadenopathy. Dictated and Authenticated by: Bam Rosales MD. Ordering:WILLAM Ariza MD
[2019-01-07] MEDS: Furosemide 40 MG/4 ML VIAL IVP (18:13)
[2019-01-07] MEDS: Ondansetron 4 MG/2 ML VIAL IVP (18:45)
[2019-01-07 19:17] LABS: Troponin I 0.22 ng/mL (0.00-0.06)
[2019-01-07] MEDS: Labetalol 100 MG/20 ML VIAL 20 MG IVP (19:28)
== END 2019-01-07 19:48 | disposition short-term general hospital (02) ==
PROVIDERS: Emergency Provider Physician Assistant; PCP Internal Medicine
DX: I16.1 Hypertensive emergency (principal); R09.02 Hypoxemia; R07.9 Chest pain, unspecified; R77.8 Other specified abnormalities of plasma proteins; I71.4 Abdominal aortic aneurysm, without rupture; R59.0 Localized enlarged lymph nodes; I13.0 Hypertensive heart and chronic kidney disease with heart failure and stage 1 through stage 4 chronic kidney disease, or unspecified chronic kidney disease; I50.9 Heart failure, unspecified; N18.4 Chronic kidney disease, stage 4 (severe)
CPT/HCPCS: 36415; 71250; 80053; 93005; 96365; 96366; 96374; 96375; 99285; 74176; 83735; 84484; 85025; 93010; J1756; J1940; J2405

== ENCOUNTER 2019-01-21 02:11 | Outpatient (RCR) | payer MEDICARE, BC, SELFPAY ==
[2019-01-07] MEDS: Normal Saline Flush 10 ML SYR IVP (13:38)
== END 2019-01-24 23:59 | disposition home or self-care (01) ==
LOC: INF 02:11
PROVIDERS: PCP Internal Medicine; Visit Provider Internal Medicine
DX: N18.5 Chronic kidney disease, stage 5 (principal); D63.1 Anemia in chronic kidney disease; D50.9 Iron deficiency anemia, unspecified
CPT/HCPCS: 96365; 96366; J1756

== ENCOUNTER 2019-01-26 01:45 | Outpatient (RCR) | payer MEDICARE, BC, SELFPAY | END 2019-02-24 23:59 | disposition home or self-care (01) | LOC: INF 01:45 | PROVIDERS: PCP Internal Medicine; Visit Provider Internal Medicine | DX: R69 Illness, unspecified (principal) ==

== ENCOUNTER 2019-02-07 14:05 | Outpatient (CLI) | payer MEDICARE, BC, SELFPAY ==
--- NOTE | 2019-02-07 14:00 | DI.RAD_ITS ---
EXAM: XR ABDOMEN FLAT PLATE INDICATION: assess bowel/gas pattern; r/o obstruction, RLQ PAIN,R10.31,LLQ PAIN,R10.32. COMPARISON: ABDOMEN 2 VIEW FLAT, UPRIGHT from 08/03/2012 TECHNIQUE: 2D digital imaging was performed. FINDINGS: A single view of the abdomen was obtained. The bowel gas pattern is within normal limits with no markus dence of obstruction. No gross free intraperitoneal air identified on the supine film. IMPRESSION: Negative examination of the abdomen.
[2019-02-07 14:38] LABS: Abs Immature Grans 0.03 k/cumm (0.0-0.09); Absolute Basophil Count 0.01 k/cumm (0.0-0.2); Absolute Eosinophil Count 0.06 k/cumm (0.0-0.7); Absolute Lymphocyte Count 0.88 k/cumm (1.2-3.4); Absolute Monocyte Count 1.38 k/cumm (0.11-0.7); Absolute Neutrophil Count 11.88 k/cumm (1.2-6.7); Basophils % 0.1; Eosinophils % 0.4; HCT 29.6 % (36.0-46.0); Immature Grans % 0.2; Lymphocytes % 6.2; Mean Corp. HGB Concentration 33.8 g/dL (32.0-36.0); Mean Corpuscular Hemoglobin 30.9 pg (27.0-33.0); Mean Corpuscular Volume 91.4 fL (80-95); Mean Platelet Volume 10.9 fL (8.0-11.0); Monocytes % 9.7; Neutrophils % 83.4; Platelet Count 220 x1000/uL (130-400); RBC 3.24 m/cumm (4.00-5.20); RBC Distribution Width 16.2 % (11.7-14.6); White Blood Cell Count 14.25 k/cumm (4.4-10.8)
[2019-02-07 15:30] LABS: ALT 12 U/L (14-59); AST 15 U/L (15-37); Alkaline Phosphatase 63 U/L (46-116); BUN 36 mg/dL (7-18); Bilirubin, Total 0.8 mg/dL (0.2-1.0); CREATININE 2.42 mg/dL (0.55-1.02); Calcium 8.3 mg/dL (8.5-10.1); Chloride 102 mmol/L (98-107); Estimated GFR 19.77 (mL/min/1.73m2); Glucose 127 mg/dL (70-100); Lipase 62 U/L (73-393); Sodium 136 mmol/L (136-145); Total Protein 5.9 g/dL (6.4-8.2)
== END 2019-02-07 14:25 ==
PROVIDERS: PCP Internal Medicine; Visit Provider Nurse Practitioner Adult Health
DX: R10.31 Right lower quadrant pain (principal); R10.32 Left lower quadrant pain; R11.2 Nausea with vomiting, unspecified; R19.7 Diarrhea, unspecified
CPT/HCPCS: 36415; 80053; 83690; 74018; 85025

== ENCOUNTER 2019-02-10 09:11 | Outpatient (CLI) | payer MEDICARE, BC, SELFPAY ==
[2019-02-10 10:03] LABS: Abs Immature Grans 0.02 k/cumm (0.0-0.09); Absolute Basophil Count 0.01 k/cumm (0.0-0.2); Absolute Eosinophil Count 0.91 k/cumm (0.0-0.7); Absolute Lymphocyte Count 0.94 k/cumm (1.2-3.4); Absolute Monocyte Count 0.67 k/cumm (0.11-0.7); Absolute Neutrophil Count 4.93 k/cumm (1.2-6.7); Basophils % 0.1; Eosinophils % 12.2; HCT 30.1 % (36.0-46.0); Immature Grans % 0.3; Lymphocytes % 12.6; Mean Corp. HGB Concentration 33.2 g/dL (32.0-36.0); Mean Corpuscular Volume 90.4 fL (80-95); Mean Platelet Volume 10.7 fL (8.0-11.0); Neutrophils % 65.8; Platelet Count 251 x1000/uL (130-400); RBC 3.33 m/cumm (4.00-5.20); RBC Distribution Width 15.8 % (11.7-14.6); White Blood Cell Count 7.48 k/cumm (4.4-10.8)
[2019-02-10 11:53] LABS: ALT 16 U/L (14-59); AST 22 U/L (15-37); Albumin 3.1 g/dL (3.4-5.0); Alkaline Phosphatase 66 U/L (46-116); Anion Gap 15.4 mmol/L (3-11); BUN 31 mg/dL (7-18); Bilirubin, Total 0.6 mg/dL (0.2-1.0); CO2 20.6 mmol/L (21.0-32.0); CREATININE 2.22 mg/dL (0.55-1.02); Calcium 8.4 mg/dL (8.5-10.1); Chloride 99 mmol/L (98-107); Estimated GFR 21.84 (mL/min/1.73m2); Glucose 93 mg/dL (70-100); Potassium 3.6 mmol/L (3.5-5.1); Sodium 135 mmol/L (136-145); Total Protein 6.3 g/dL (6.4-8.2)
== END 2019-02-10 09:31 ==
PROVIDERS: PCP Internal Medicine; Visit Provider Nurse Practitioner Adult Health
DX: D72.829 Elevated white blood cell count, unspecified (principal); R11.2 Nausea with vomiting, unspecified
CPT/HCPCS: 36415; 80053; 85025

== ENCOUNTER 2019-02-16 04:13 | Inpatient (IN) | payer MEDICARE, BC, SELFPAY ==
[2019-02-16] VITALS (65 sets, daily range): BP systolic 151–190; BP diastolic 69–94; PULSE 75–106; RESP 1–24; TEMP 34–36.8; O2SAT 79–99
--- NOTE | 2019-02-16 04:27 | W.ED.GENAD ---
Discharge Plan Disposition Patient Disposition: [facility] INPATIENT Condition: Poor Discharge Details Chief Complaint: SOB Clinical Impression: Bronchospasm, CKD (chronic kidney disease) stage 4, GFR 15-29 ml/min Primary Care Provider: Sanjuanita Lee ED Provider: Juan Mcqueen [place] Meds and New Rx's Prescriptions: No Action famotidine 20 mg tablet 20 mg PO BID Qty: 180 RF: 3 amlodipine 5 mg tablet 5 mg PO DAILY RF: 0 aspirin [Aspir-81] 81 MG tablet,delayed release (DR/EC) 81 mg PO DAILY RF: 0 clonidine HCl 0.1 mg tablet 0.1 mg PO PRN RF: 0 atorvastatin 20 mg tablet 20 mg PO QHS RF: 0 gabapentin 100 mg capsule 200 mg PO HS Qty: 180 RF: 2 carvedilol 12.5 mg tablet 12.5 mg PO BID RF: 0 hydralazine 25 mg tablet 25 mg PO TID RF: 0 isosorbide dinitrate 20 mg tablet 20 mg PO TID RF: 0 levothyroxine 75 mcg capsule 75 mcg PO DAILY RF: 0 acetaminophen [Tylenol] 325 mg Tablet 650 mg PO Q6H PRN PRNQty: 0 RF: 0 Medical Decision Making Patient presenting with shortness of breath. She has no associated complaints. Previous history of flash pulmonary edema, CHF, CKD which she knows all to well. She reports that this is completely different. This was gradual onset. There is diminished breath sounds and wheezing heard. She does not carry a diagnosis of lung disease. That being said we will start with a DuoNeb to see if this helps. Room air saturations very low. On facemask saturations are low to mid 90s. She feels better with the oxygen. IV started. EKG and laboratory studies ordered. Chest x-ray to be done. 06:00 - Patient feels breathing better after Duoneb. Laboratory studies significant for hemoglobin of 10.3 which is baseline. White count is normal. Kidney function a little worse with a creatinine of 3, baseline seems closer to 2.5 or so. Sugar a little high at 192. Troponin negative. Chest x-ray continues to have small bilateral effusions which appear unchanged. She has increased interstitial markings questionable for infiltrate versus edema. No focal consolidation. Patient on repeat lung exam has much better air movement and no wheezing. Some rhonchi at the bases. Saturations on pediatric mask low 90s. No longer in respiratory distress but remains tachypneic. Continues to have prolonged expiratory phase. Continues to remain mildly tachycardic as well as hypertensive. No previous history of COPD. Discussed with hospitalist, Dr. Sharpe. Will give a second albuterol as well as IV Solu-Medrol. Will give morning antihypertensive medications. He will see the patient in the ED. Medical Records Medical records reviewed: Yes I reviewed the patient's medical records. Lab Data Lab results reviewed: Yes I reviewed the patient's lab results. ECG Data Attestation: I personally reviewed and interpreted this ECG (s) as follows: Prior ECG tracings: available for review Interpretation: Sinus tachycardia at 103. Normal axis and intervals. LVH by criteria. ST depression not significantly changed compared to January 07 of this year. Fair amount of baseline sway and artifact. HPI General Mode of arrival: wheelchair. Date/Time Provider Initiated Documentation: 02/16/19 04:19. Limitations to Documentation: no limitations. Information obtained by: patient, RN notes reviewed and old records reviewed. HPI Narrative: Patient presents to ED with complaint of shortness of breath. Patient has history of pulmonary edema due to hypertensive emergency, CHF and CKD. Patient reports that this feels different. This came on slowly over the course of 4 or 5 days. She has no associated chest pain, pressure, tightness. She has no fever, cough, URI symptoms. She denies abdominal or back pain. The vomiting and diarrhea which she saw her primary care for earlier this month resolved. She continues to make urine. She has been taking her medications. She has no increased water retention or weight gain. She is a former smoker in the distant past. She does not carry a diagnosis of lung disease. Related Data Home Medications Medication Instructions Recorded Confirmed aspirin [Aspir-81] 81 mg PO DAILY tab-cap 04/19/13 02/16/19 acetaminophen [Tylenol] 650 mg PO Q6H PRN PRN #0 tab 08/29/18 02/16/19 atorvastatin 20 mg tablet 20 mg PO QHS 10/08/18 02/16/19 clonidine HCl 0.1 mg tablet 0.1 mg PO PRN tab 10/08/18 02/16/19 gabapentin 100 mg capsule 200 mg PO HS #180 cap 01/05/19 02/16/19 carvedilol 12.5 mg tablet 12.5 mg PO BID 01/24/19 02/16/19 hydralazine 25 mg tablet 25 mg PO TID 01/24/19 02/16/19 isosorbide dinitrate 20 mg tablet 20 mg PO TID 01/24/19 02/16/19 levothyroxine 75 mcg capsule 75 mcg PO DAILY 01/24/19 02/16/19 amlodipine 5 mg tablet 5 mg PO DAILY 02/01/19 02/16/19 famotidine 20 mg tablet 20 mg PO BID #180 tab 02/01/19 02/16/19 Previous Rx's Medication Instructions Recorded acetaminophen [Tylenol] 650 mg PO Q6H PRN PRN #0 tab 08/29/18 gabapentin 100 mg capsule 200 mg PO HS #180 cap 01/05/19 famotidine 20 mg tablet 20 mg PO BID #180 tab 02/01/19 Allergies Allergy/AdvReac Type Severity Reaction Status Date / Time lisinopril AdvReac Mild Rise in Verified 02/16/19 04:27 creatinine General Stated Complaint: SOB BILLY: 2 Review of Systems Review of Systems Narrative: 02/07 Review of Systems completed and is negative except as stated above in HPI (Systems reviewed: Const, Eyes, ENT, Resp, CV, GI, , MSK, Skin, Neuro) PFSH Medical History Abdominal aortic aneurysm (AAA) without rupture (Chronic 01/04/16) 02/26/13-CT scan infra-renal, 3.1 cm, 03/16/2018 [facility] [place] Dr Moody. 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 EGD W/ BS (Resolved 08/12/12) DR CANCHOLA Hysterectomy, Laproscopic (Chronic ~01/1984) Status post surgery (Acute 09/07/18) right external iliac to right renal artery bypass with reversed rifht greater sap[place] [facility] [place] Smoking/Tobacco Use Status: Former Tobacco Use Tobacco: How many years used: 45 Alcohol Intake: never Drug use: Never Substance use type: does not use Caregiver/Support person: Yes Foster care: No Household members: spouse Housing: house Number of Children: 2 Communication Needs: Corrective Lenses Education Level: college Do you need help understanding health information?: Rarely 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, 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 Pets and animals: Yes Current gender identity: female What is your relationship status?: How often do you talk on the phone with friends or family?: three or more times per week How often do you get together with friends or relatives?: once per week Panel score (0-1 are the most socially isolated patients): 2 What type of physical activity do you participate in: none Special yanira needs: No Agree to transfusion: Yes Seatbelt use: always Drive intox or ride w/intox transfer 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 She felt her health was under control [place] [facility] [place] Surprised to find herself so debilitated. Exam Narrative Exam Narrative: Vitals: Afebrile. Hypertensive and tachycardic. Somewhat tachypneic with room air saturations in the low 80s/upper 70s. Const: Cachectic elderly female in mild to moderate respiratory distress. HEENT: NC/AT. Normal facial exam. Eyes: Normal conjunctiva and sclera. Neck: Supple. Trachea midline. Lungs: Tachypneic with increased work of breathing. Decreased breath sounds throughout though more diminished on right. Expiratory wheezing heard on right less on the left. Prolonged expiratory phase present. Cor: RRR without murmur/gallop. Tachycardic. Good radial pulses. GI: Soft and nondistended. Neuro: A+O x 3. CN grossly in tact. Good strength and no focal deficit. Ext: No C/C/E. Skin: Warm and dry without rash. Course Vital Signs Vital signs: Vital Signs Temperature 98.1 F 02/16/19 04:18 Pulse 104 H 02/16/19 04:18 Respiratory Rate 22 02/16/19 04:18 Blood Pressure 190/94 H 02/16/19 04:18 Pulse Oximetry 79 L 02/16/19 04:18 Temperature 98.1 F 02/16/19 04:18 Temperature Source Skin 02/16/19 04:18 Pulse 104 H 02/16/19 04:18 Respiratory Rate 22 02/16/19 04:18 Blood Pressure 190/94 H 02/16/19 04:18 Blood Pressure Position Sitting 02/16/19 04:18 Pulse Oximetry 79 L 02/16/19 04:18 Oxygen Delivery Method Room Air 02/16/19 04:18 Oxygen Flow Rate 0 02/16/19 04:18 Pain Level 0 02/16/19 04:18 Comment 02/16/19 04:18
--- NOTE | 2019-02-16 04:33 | DI.RAD_ITS ---
EXAM: XR CHEST 2V PA LATERAL INDICATION: shortness of breath. COMPARISON: XR PORTABLE CHEST AP from 12/09/2018 TECHNIQUE: 2D digital imaging was performed. FINDINGS: The interstitial infiltrates/edema have increased since the previous study. Small bilateral pleural effusions, right greater than left, appear stable. The heart is not enlarged. There is no acute bon y abnormality. IMPRESSION: Increasing interstitial infiltrates/edema. No focal consolidation is seen.
[2019-02-16] MEDS: Albuterol/Ipratropium 3 ML UPD VIAL UPD ×2 (04:40→09:20)
[2019-02-16 04:52] LABS: Abs Immature Grans 0.07 k/cumm (0.0-0.09); Absolute Basophil Count 0.08 k/cumm (0.0-0.2); Absolute Eosinophil Count 1.07 k/cumm (0.0-0.7); Absolute Lymphocyte Count 1.46 k/cumm (1.2-3.4); Absolute Monocyte Count 0.91 k/cumm (0.11-0.7); Absolute Neutrophil Count 6.59 k/cumm (1.2-6.7); Basophils % 0.8; Eosinophils % 10.5; HCT 30.8 % (36.0-46.0); HGB 10.3 g/dL (12.0-15.5); Immature Grans % 0.7; Lymphocytes % 14.3; Mean Corp. HGB Concentration 33.4 g/dL (32.0-36.0); Mean Corpuscular Hemoglobin 30.7 pg (27.0-33.0); Mean Corpuscular Volume 91.7 fL (80-95); Mean Platelet Volume 10.1 fL (8.0-11.0); Monocytes % 8.9; Neutrophils % 64.8; Platelet Count 380 x1000/uL (130-400); RBC 3.36 m/cumm (4.00-5.20); RBC Distribution Width 16.4 % (11.7-14.6); White Blood Cell Count 10.18 k/cumm (4.4-10.8)
--- NOTE | 2019-02-16 04:53 | NUR.NOTE ---
Nursing Note: Pt removed from non-rebreather following neb treatment and placed on simple mask at 8L to maintain SP02 of 92%.
[2019-02-16 05:05] LABS: ALT 15 U/L (14-59); AST 21 U/L (15-37); Albumin 3.2 g/dL (3.4-5.0); Alkaline Phosphatase 83 U/L (46-116); Anion Gap 12.5 mmol/L (3-11); BUN 32 mg/dL (7-18); Bilirubin, Total 0.7 mg/dL (0.2-1.0); CO2 21.5 mmol/L (21.0-32.0); CREATININE 3.06 mg/dL (0.55-1.02); Calcium 8.7 mg/dL (8.5-10.1); Chloride 100 mmol/L (98-107); Estimated GFR 15.08 (mL/min/1.73m2); Glucose 192 mg/dL (70-100); Potassium 4.5 mmol/L (3.5-5.1); Sodium 134 mmol/L (136-145); Total Protein 7.1 g/dL (6.4-8.2)
[2019-02-16 05:07] LABS: Troponin I < 0.05 ng/mL (0.00-0.06)
--- NOTE | 2019-02-16 05:22 | DI.VRAD_ITS ---
PROCEDURE INFORMATION: Exam: XR Chest, 2 Views Exam date and time: 02/16/2019 5:02 AM Clinical history: 68 years old, female; Other: Shortness of breath TECHNIQUE: Imaging protocol: XR of the chest Views: 2 views. COMPARISON: CR XR PORTABLE CHEST AP 12/09/2018 8:45 AM FINDINGS: Lungs: The diffuse interstitial infiltrates/edema have increased since the previous study. Pleural space: Bilateral pleural effusions appear unchanged. Heart/Mediastinum: Unremarkable. No cardiomegaly. Bones/joints: No acute bony findings. IMPRESSION: Increasing interstitial infiltrates/edema. No focal consolidation. Dictated and Authenticated by: Brady Yoon MD. Ordering:KISHAN Martinez MD
[2019-02-16] MEDS: Albuterol 2.5 MG/3 ML INH SOLN VIAL UPD (05:27)
[2019-02-16] MEDS: methylPREDNISolone SUCC 125 MG VIAL IVP (05:28)
--- NOTE | 2019-02-16 06:21 | W.PM.HP.N ---
Date of service: 02/16/19 Time of Service: 06:21 Assessment and Plan Assessment and plan (1) SOB (shortness of breath): Status: Acute Assessment and plan: SOB. I agree this does not seem to be her usual presentation of flash pulmonary edema, and the findings and response to treatment point to bronchospasm. Notably this would be a new diagnosis for her. I think it best to continue treatment for such (and hold on any diuresis) and see which way events unfold. I do note a slight fever this morning and perhaps a URI is developing, a possible trigger. I would also note the possibility of cardiac wheeze but the response to bronchodilators would not be expected. SOB/wheeze: continue updrafts and steroids HTN: usual meds No other changes, and remains full code. History of Present Illness History of Present Illness Chief Complaint: SOB Narrative: 68 female with h/o HTN and multiple admissions for flash pulmonary edema -- comes in today with several days of gradually worsening shortness of breath, entirely different from her usual. In ER findings of note for obvious respiratory distress, hypoxia and diminished breath sounds along with wheezing. Patient given Duoneb, Solumedrol and placed on O2. Following treatment she reports feeling much improved, though not back to baseline. Other pertinent findings are normal white count, CXR at baseline and negative troponin. Admitted for further management. Review of Systems Review of Systems ROS Unobtainable: All systems reviewed & are unremarkable except as noted in HPI and below PFSH Medical History Abdominal aortic aneurysm (AAA) without rupture (Chronic 01/04/16) 02/26/13-CT scan infra-renal, 3.1 cm, 03/16/[place] [facility] [place]. 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 EGD W/ BS (Resolved 08/12/12) DR CANCHOLA Hysterectomy, Laproscopic (Chronic ~01/1984) Status post surgery (Acute 09/07/18) right external iliac to right renal artery bypass with reversed rifht greater saphenous vein, [facility] [place] Family History Grandmother Essential hypertension Mother , age 68 of ovarian cancer Ovarian cancer Father , age 60 of emphysema Emphysema lung Smoker Sister Essential hypertension Brother , age 34 of suicide Suicide Son No problems noted. Daughter No problems noted. 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 Pets and animals: Yes Current gender identity: female What is your relationship status?: How often do you talk on the phone with friends or family?: three or more times per week How often do you get together with friends or relatives?: once per week Panel score (0-1 are the most socially isolated patients): 2 What type of physical activity do you participate in: none Special yanira needs: No Agree to transfusion: Yes Seatbelt use: always Drive intox or ride w/intox cdl b 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 She felt her health was under control until surgery at [facility] [place]. Surprised to find herself so debilitated. Meds Home Medications and Allergies Home Medications Medication Instructions Recorded Confirmed Type aspirin [Aspir-81] 81 mg PO DAILY tab-cap 04/19/13 02/16/19 History acetaminophen [Tylenol] 650 mg PO Q6H PRN PRN #0 tab 08/29/18 02/16/19 Rx atorvastatin 20 mg tablet 20 mg PO QHS 10/08/18 02/16/19 History clonidine HCl 0.1 mg tablet 0.1 mg PO PRN tab 10/08/18 02/16/19 History gabapentin 100 mg capsule 200 mg PO HS #180 cap 01/05/19 02/16/19 Rx carvedilol 12.5 mg tablet 12.5 mg PO BID 01/24/19 02/16/19 History hydralazine 25 mg tablet 25 mg PO TID 01/24/19 02/16/19 History isosorbide dinitrate 20 mg tablet 20 mg PO TID 01/24/19 02/16/19 History levothyroxine 75 mcg capsule 75 mcg PO DAILY 01/24/19 02/16/19 History amlodipine 5 mg tablet 5 mg PO DAILY 02/01/19 02/16/19 History famotidine 20 mg tablet 20 mg PO BID #180 tab 02/01/19 02/16/19 Rx Allergies Allergy/AdvReac Type Severity Reaction Status Date / Time lisinopril AdvReac Mild Rise in Verified 02/16/19 04:27 creatinine Exam Narrative Exam Narrative: 189/94, 100, 37.6, 12, sats low 90s on facemask. HEENT unremarkable; neck supple; lungs bibasilar rales and diffuse end exp wheeze; heart RRR; abdomen soft NT; extremities no edema; neuro ox3 non-focal Results Labs Result diagrams: 02/16/19 04:35 02/16/19 04:35 Labs: Laboratory Results - last 24 hr 02/16/19 02/16/19 04:35 04:35 WBC 10.18 RBC 3.36 L Hgb 10.3 L Hct 30.8 L MCV 91.7 MCH 30.7 MCHC 33.4 RDW 16.4 H Plt Count 380 D MPV 10.1 Immature Gran % 0.7 Neutrophils % 64.8 Lymphocytes % 14.3 Monocytes % 8.9 Eosinophils % 10.5 Basophils % 0.8 Absolute Neutrophils 6.59 Absolute Lymphocytes 1.46 Absolute Monocytes 0.91 H Absolute Eosinophils 1.07 H Absolute Basophils 0.08 Sodium 134 L Potassium 4.5 Chloride 100 Carbon Dioxide 21.5 Anion Gap 12.5 H BUN 32 H Creatinine 3.06 H Estimated GFR/1.73 m2 15.08 Glucose 192 H Calcium 8.7 Magnesium 2.0 Total Bilirubin 0.7 AST 21 ALT 15 Alkaline Phosphatase 83 Troponin I < 0.05 Total Protein 7.1 Albumin 3.2 L Last Vital Signs Temp 36.7 C 02/16/19 04:18 Pulse 101 H 02/16/19 04:45 Resp 12 02/16/19 04:50 BP 189/94 H 02/16/19 04:45 Pulse Ox 93 L 02/16/19 04:50
[2019-02-16] MEDS: Carvedilol 12.5 MG TAB PO ×2 (06:24→19:54)
[2019-02-16] MEDS: amLODIPine 5 MG TAB PO (06:24)
[2019-02-16] MEDS: hydrALAZINE 25 MG TAB PO ×3 (06:24→19:54)
[2019-02-16] MEDS: Isosorbide Dinitrate 10 MG TAB 20 MG PO ×3 (06:25→19:54)
--- NOTE | 2019-02-16 06:29 | NUR.NOTE ---
Nursing Note: Attempted to place pt on NC at 4L O2, pt SP02 desated to 85%. Pt placed back on simple mask at 6L.
[2019-02-16 08:52] LABS: BE -3.8 mmol/L (-3-3); HCO3 20 mmol/L (22-28); pCO2 27 mmHg (34-47); pH 7.48 (7.35-7.45); pO2 63 mmHg (83-108); sO2 94 % (94-98); tCO2 18 mmol/L (22-29)
[2019-02-16 08:54] LABS: FIO2 48 %; Site Right Radial
[2019-02-16] MEDS: Famotidine 20 MG TAB PO ×2 (09:02→19:54)
[2019-02-16] MEDS: Aspirin E.C. 81 MG TABEC PO (09:02)
--- NOTE | 2019-02-16 09:30 | INITIAL_ITS ---
Care Management Initial Assess REASON FOR HOSPITALIZATION:: SOB, Wheezing PAST MEDICAL HISTORY/PAST SURGICAL HISTORY:: Medical: AAA without rupture, anemia, blue toe syndrome of RLE, cardiomyopathy, CKD, creatinine elevation, hearing loss, hepatitis B, high blood cholesterol, HTN, H/O jaundice, lymphocytic-plasmacytic colitis, renal artery stenosis, renovascular HTN. Surgical: bilateral salpingectomy with oophorectomy, colonoscopy, EGD, lap hysterectomy, surgery 09/07/18. PREVIOUS FUNCTIONAL STATUS/SOCIAL/FAMILY SUPPORTS:: Charlene resides with her Rodolfo in their home in [place]. She just retired on 11/24/18 from [employer]. They have two adult children, a daughter in [facility] and son in [place]. She is usually active and independent with ADL's and transportation. Charlene is independent at baseline though she has been struggling with CHF and has had multiple admissions at [facility] and [facility] over the last year. CURRENT FUNCTIONAL STATUS:: Charlene is lying in bed, sleeping when CM attempts to meet with her. 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 PATIENT/FAMILY EDUCATION NEEDS:: Discharge education, limitations, follow-up plan of care, asked me 3 and self-management. ANTICIPATED BARRIERS TO DISCHARGE:: None identified. TRANSPORTATION:: Via private car with Rodolfo at time of discharge. PLAN:: hCarlene will be discharged home when medically ready per provider. She will follow up with her PCP and plan of care as prescribed. Anticpate no additional services at time of discharge. CM to continue to provide support discharge planning.
[2019-02-16 10:55] LABS: NT-proBNP 60320 pg/mL
[2019-02-16] MEDS: Normal Saline Flush 10 ML SYR IVP ×2 (11:56→14:33)
[2019-02-16] MEDS: methylPREDNISolone SUCC 40 MG VIAL IVP (14:31)
--- NOTE | 2019-02-16 15:34 | PHARADMIT ---
Admission Pharmacy Clinical Review SOB, WHEEZING Code Status Full Code Current Weight 39.054 kg Renally Cleared and Narrow Therapeutic Index Meds CrCl 10ml/min - gabapentin 200mg HS - could consider reducing dose to half but does have stage 4 CKD so is this her baseline? QTc Value / Action Taken QTc 492 BP Control, Fever BP 159/73, afebrile Electrolytes reviewed Na 134, K+ 4.5, Mag 2.0 DVT Prophylaxis Opiate Usage / Scheduled Bowel Regimen Ordered None Plt/SCr for Heparin / Enoxaparin Plt 380, Scr 3.06 INR for Warfarin H/H stable, WBC/Bands H/H 10.3/30.8, WBC 10.18 Antibiotic appropriateness Cultures and Sensitivities Surgical ABX d/c within 24 hr DM control / Insulin Dosing Heart Failure (Check EF%) (ABBY's, B-Block, Diuretics) amlodipine, carvedilol, clonidine, hydralazine, isosorbide IV to PO Switch Home Meds Reviewed Yes, ok Home Meds Not Ordered All ordered Comments Typically presents with flash pulmonary edema but reports this is different, treated for bronchospasm upon admission IV lasix drip start @1150
[2019-02-16] MEDS: cloNIDine 0.1 MG TAB PO (18:17)
--- NOTE | 2019-02-16 18:56 | NUR.NOTE ---
Nursing Note: Patient transfers from unit (ICU) around 1745. Patient A &O x3. HR regular slightly tachy at 93. On lasix drip @ 2.5 mg/ml/hr. Lungs clear. normal bowel sounds. VSS. BP high at 184/88. Positive pedal and radial pulses bilaterally. Patient comfortable in bed talking with friends/family. Denies chest pain, SOB and abdominal discomfort.
--- NOTE | 2019-02-16 20:28 | W.PM.PROGNOT ---
Date of Service Date of service: 02/16/19 Time of Service: 20:28 Subjective Subjective Interval history since last seen: Ms Harmon states she is feeling a lot better than before. She denies any wheezing, weight gain. She has been on lasix drip for majority of the day as her CXR and pro BNP came back c/w pulmonary edema. Her BP started to creep up to 180's- but, per , the BP's had stayed in 120-140's at home consistently, and this episode was not accompanied by weight gain like before. The patient denies dizziness, chest pain, cough productive of purulent sputum (has a little bit of clear sputum), nausea. I have added prn hydralazine to her regimen and made clonidine TID prn. Listening to her lungs, there is no indication for steroids at this time, they have been discontinued. Perhaps, the steroids are the reason why her BP went up today. Continue to monitor on telemetry. Objective Objective Clinical Data: Abnormal lab results 02/16/19 02/16/19 02/16/19 Range/Units 04:35 04:35 04:35 RBC 3.36 L (4.00-5.20) m/cumm Hgb 10.3 L (12.0-15.5) g/dL Hct 30.8 L (36.0-46.0) % RDW 16.4 H (11.7-14.6) % Absolute Monocytes 0.91 H (0.11-0.7) k/cumm Absolute Eosinophils 1.07 H (0.0-0.7) k/cumm pCO2 (34-47) mmHg pO2 (83-108) mmHg ABG pH (7.35-7.45) ABG HCO3 (22-28) mmol/L ABG Total CO2 (22-29) mmol/L ABG Base Excess (-3-3) mmol/L Sodium 134 L (136-145) mmol/L Anion Gap 12.5 H (3-11) mmol/L BUN 32 H (7-18) mg/dL Creatinine 3.06 H (0.55-1.02) mg/dL Glucose 192 H (70-100) mg/dL NT-Pro-B Natriuret Pep 43502 H ( - 299) pg/mL Albumin 3.2 L (3.4-5.0) g/dL 02/16/19 Range/Units 08:50 RBC (4.00-5.20) m/cumm Hgb (12.0-15.5) g/dL Hct (36.0-46.0) % RDW (11.7-14.6) % Absolute Monocytes (0.11-0.7) k/cumm Absolute Eosinophils (0.0-0.7) k/cumm pCO2 27 L (34-47) mmHg pO2 63 L (83-108) mmHg ABG pH 7.48 H (7.35-7.45) ABG HCO3 20 L (22-28) mmol/L ABG Total CO2 18 L (22-29) mmol/L ABG Base Excess -3.8 L (-3-3) mmol/L Sodium (136-145) mmol/L Anion Gap (3-11) mmol/L BUN (7-18) mg/dL Creatinine (0.55-1.02) mg/dL Glucose (70-100) mg/dL NT-Pro-B Natriuret Pep ( - 299) pg/mL Albumin (3.4-5.0) g/dL Vital Signs Temperature 36.7 C 02/16/19 20:00 Temperature Source Temporal Artery Scan 02/16/19 20:00 Pulse 94 H 02/16/19 20:00 Pulse Rhythm Regular 02/16/19 19:40 Pulse 81 02/16/19 07:46 Respiratory Rate 20 02/16/19 20:00 Respiratory Effort Non-Labored 02/16/19 19:40 Respiratory Depth Normal 02/16/19 19:40 Respiratory Pattern Normal 02/16/19 19:40 Blood Pressure 175/83 H 02/16/19 20:00 Blood Pressure Mean 97 02/16/19 16:00 Blood Pressure Position Supine 02/16/19 10:06 Pulse Oximetry 95 02/16/19 20:00 Oxygen Delivery Method Hi Flow Nasal Cannula 02/16/19 20:00 Oxygen Flow Rate 0 02/16/19 20:00 Fraction of Inspired Oxygen (FIO2) 75 02/16/19 15:55 Pain Level 0 02/16/19 20:00 Comment 02/16/19 04:18 Intake & Output 02/15/19 02/16/19 02/16/19 23:59 11:59 23:59 Intake Total 240 / 240 Output Total 950 / 950 Balance -710 / -710 Weight 39.054 kg Intake: Oral 240 / 240 Output: Urine 950 / 950 Other: Urine Color Pale Yellow Urine Appearance Clear Urine Odor Strong Voiding Methods Bedside Commode Laboratory Results WBC 10.18 k/cumm (4.4-10.8) 02/16/19 04:35 RBC 3.36 m/cumm (4.00-5.20) L 02/16/19 04:35 Hgb 10.3 g/dL (12.0-15.5) L 02/16/19 04:35 Hct 30.8 % (36.0-46.0) L 02/16/19 04:35 MCV 91.7 fL (80-95) 02/16/19 04:35 MCH 30.7 pg (27.0-33.0) 02/16/19 04:35 MCHC 33.4 g/dL (32.0-36.0) 02/16/19 04:35 RDW 16.4 % (11.7-14.6) H 02/16/19 04:35 Plt Count 380 x1000/uL (130-400) D 02/16/19 04:35 MPV 10.1 fL (8.0-11.0) 02/16/19 04:35 Immature Gran % 0.7 02/16/19 04:35 Neutrophils % 64.8 02/16/19 04:35 Lymphocytes % 14.3 02/16/19 04:35 Monocytes % 8.9 02/16/19 04:35 Eosinophils % 10.5 02/16/19 04:35 Basophils % 0.8 02/16/19 04:35 Absolute Neutrophils 6.59 k/cumm (1.2-6.7) 02/16/19 04:35 Absolute Lymphocytes 1.46 k/cumm (1.2-3.4) 02/16/19 04:35 Absolute Monocytes 0.91 k/cumm (0.11-0.7) H 02/16/19 04:35 Absolute Eosinophils 1.07 k/cumm (0.0-0.7) H 02/16/19 04:35 Absolute Basophils 0.08 k/cumm (0.0-0.2) 02/16/19 04:35 Sample Site Right radial 02/16/19 08:50 pCO2 27 mmHg (34-47) L 02/16/19 08:50 pO2 63 mmHg (83-108) L 02/16/19 08:50 O2 Saturation 94 % (94-98) 02/16/19 08:50 ABG pH 7.48 (7.35-7.45) H 02/16/19 08:50 ABG HCO3 20 mmol/L (22-28) L 02/16/19 08:50 ABG Total CO2 18 mmol/L (22-29) L 02/16/19 08:50 ABG Base Excess -3.8 mmol/L (-3-3) L 02/16/19 08:50 FiO2 48 % 02/16/19 08:50 Sodium 134 mmol/L (136-145) L 02/16/19 04:35 Potassium 4.5 mmol/L (3.5-5.1) 02/16/19 04:35 Chloride 100 mmol/L (98-107) 02/16/19 04:35 Carbon Dioxide 21.5 mmol/L (21.0-32.0) 02/16/19 04:35 Anion Gap 12.5 mmol/L (3-11) H 02/16/19 04:35 BUN 32 mg/dL (7-18) H 02/16/19 04:35 Creatinine 3.06 mg/dL (0.55-1.02) H 02/16/19 04:35 Estimated GFR/1.73 m2 15.08 (mL/min/1.73m2) 02/16/19 04:35 Glucose 192 mg/dL (70-100) H 02/16/19 04:35 Calcium 8.7 mg/dL (8.5-10.1) 02/16/19 04:35 Magnesium 2.0 mg/dL (1.8-2.4) 02/16/19 04:35 Total Bilirubin 0.7 mg/dL (0.2-1.0) 02/16/19 04:35 AST 21 U/L (15-37) 02/16/19 04:35 ALT 15 U/L (14-59) 02/16/19 04:35 Alkaline Phosphatase 83 U/L (46-116) 02/16/19 04:35 Troponin I < 0.05 ng/mL (0.00-0.06) 02/16/19 04:35 NT-Pro-B Natriuret Pep 05081 pg/mL (-299) H 02/16/19 04:35 Total Protein 7.1 g/dL (6.4-8.2) 02/16/19 04:35 Albumin 3.2 g/dL (3.4-5.0) L 02/16/19 04:35
[2019-02-16] MEDS: Heparin 5,000 UNITS/ML VIAL 5000 UNITS SC (22:23)
[2019-02-16] MEDS: Atorvastatin 20 MG TAB PO (22:23)
[2019-02-16] MEDS: Gabapentin 100 MG CAP PO (22:23)
[2019-02-17] VITALS (12 sets, daily range): BP systolic 161–174; BP diastolic 70–91; PULSE 73–89; RESP 16–87; TEMP 34–36.8; O2SAT 91–98
[2019-02-17] MEDS: Calcium Carbonate *TUMS* 500 MG CHEW PO ×2 (06:11→20:25)
[2019-02-17 07:25] LABS: HCT 26.8 % (36.0-46.0); HGB 8.7 g/dL (12.0-15.5); Mean Corp. HGB Concentration 32.5 g/dL (32.0-36.0); Mean Corpuscular Hemoglobin 30.1 pg (27.0-33.0); Mean Corpuscular Volume 92.7 fL (80-95); Mean Platelet Volume 10.1 fL (8.0-11.0); Platelet Count 303 x1000/uL (130-400); RBC 2.89 m/cumm (4.00-5.20); RBC Distribution Width 16.5 % (11.7-14.6); White Blood Cell Count 10.24 k/cumm (4.4-10.8)
[2019-02-17 07:27] LABS: Anion Gap 12.3 mmol/L (3-11); BUN 43 mg/dL (7-18); CO2 22.7 mmol/L (21.0-32.0); CREATININE 2.91 mg/dL (0.55-1.02); Calcium 8.5 mg/dL (8.5-10.1); Chloride 100 mmol/L (98-107); Estimated GFR 15.98 (mL/min/1.73m2); Glucose 145 mg/dL (70-100); Potassium 4.2 mmol/L (3.5-5.1); Sodium 135 mmol/L (136-145)
[2019-02-17] MEDS: Levothyroxine 75 MCG TAB PO (08:36)
[2019-02-17] MEDS: Aspirin E.C. 81 MG TABEC PO (08:36)
[2019-02-17] MEDS: Carvedilol 12.5 MG TAB PO ×2 (08:36→20:25)
[2019-02-17] MEDS: hydrALAZINE 25 MG TAB PO ×3 (08:36→20:25)
[2019-02-17] MEDS: Famotidine 20 MG TAB PO ×2 (08:37→20:25)
[2019-02-17] MEDS: amLODIPine 5 MG TAB PO (08:37)
[2019-02-17] MEDS: Isosorbide Dinitrate 10 MG TAB 20 MG PO ×3 (08:37→20:25)
--- NOTE | 2019-02-17 09:53 | CMPROGNOTE_ITS ---
Care Management Progress Note S/O: Charlene is lying in bed, her at her bedside, she reviews her current medical status and previous issues with sodium and iron. She reviews her previous admissions and weight loss. Charlene and Rodolfo show this keno writer / runner their tracking methods for medication changes and vitals which are well organized. CM reviewed the [facility] notification with Charlene and Rodolfo and provided Financial Assistance packet as well. CM continues to follow. A: 68 year old female admitted to [facility] 02/16/19 for SOB, wheezing P: Charlene will be discharged home when medically ready per provider. She will follow up with her PCP and plan of care as prescribed. Anticipate no additional services at time of discharge. CM to continue to provide support discharge planning.
[2019-02-17 13:06] LABS: HCT 28.3 % (36.0-46.0); HGB 9.4 g/dL (12.0-15.5)
[2019-02-17 16:15] LABS: Anion Gap 12.2 mmol/L (3-11); BUN 47 mg/dL (7-18); CO2 22.8 mmol/L (21.0-32.0); CREATININE 2.96 mg/dL (0.55-1.02); Calcium 8.3 mg/dL (8.5-10.1); Chloride 99 mmol/L (98-107); Estimated GFR 15.67 (mL/min/1.73m2); Glucose 167 mg/dL (70-100); Magnesium 1.9 mg/dL (1.8-2.4); Potassium 3.6 mmol/L (3.5-5.1); Sodium 134 mmol/L (136-145)
[2019-02-17 17:18] LABS: Troponin I < 0.05 ng/mL (0.00-0.06)
--- NOTE | 2019-02-17 17:55 | W.PM.PROGNOT ---
Date of Service Date of service: 02/17/19 Time of Service: 16:30 Assessment and Plan Assessment and plan (1) Acute on chronic systolic CHF (congestive heart failure): Status: Acute Assessment and plan: Improving on lasix drip which I would like to continue overnight. Latest EF known to me is 54%, improved. These exacerbations seem to always be correlated with hypertensive emergencies. Continue current antihypertensive regimen; diurese. (2) Hypertensive emergency: Status: Acute Assessment and plan: as above (3) Acute respiratory failure with hypoxia: Status: Resolved Assessment and plan: Due to fluid overload/acute exacerbation of CHF. Improving with diuresis. Continue to wean O2 as tolerated. (4) Acute kidney injury superimposed on chronic kidney disease: Status: Acute Assessment and plan: Tolerating diuresis. Continue to monitor while on lasix gtt. (5) Renal artery stenosis: Status: Chronic Assessment and plan: S/p stenting. Patient remains prone to hypertensive crises. Follow up as outpatient at [facility] (6) Abdominal aortic aneurysm (AAA) without rupture: Status: Chronic Assessment and plan: Follow up with vascular as outpatient (7) DVT prophylaxis: Status: Acute Assessment and plan: heparin SC (8) Discharge planning issues: Status: Acute Assessment and plan: Full code Patient agrees to palliative care consult if she is not discharged home tomorrow Subjective Subjective Interval history since last seen: Ms Harmon states she is feeling better. She was weaned to 3L of O2 - tolerating well. Denies dizziness, chest pain, shortness of breath while sitting, nausea, vomiting. She would like to be discharged home tomorrow because she has an appointment with her vacuum forming machine operator in [place]. She is interested in getting set up with our local vacuum forming machine operator, however, because the [place] vacuum forming machine operator is only there once a month. Exam Narrative Exam Narrative: General: Very pleasant elderly female, sitting up in a chair, in great spirits, A&OX3 HEENT: EOMI, MMM Heart: RRR, no m/r/g Lungs: diminished at B bases, but more aerated than yesterday GI: abdomen is soft, nontender, nondistended Extremities: no e/c/c BLE's Objective Objective Clinical Data: Abnormal lab results 02/17/19 02/17/19 02/17/19 Range/Units 06:58 06:58 12:40 RBC 2.89 L (4.00-5.20) m/cumm Hgb 8.7 L 9.4 L (12.0-15.5) g/dL Hct 26.8 L 28.3 L (36.0-46.0) % RDW 16.5 H (11.7-14.6) % Sodium 135 L (136-145) mmol/L Anion Gap 12.3 H (3-11) mmol/L BUN 43 H D (7-18) mg/dL Creatinine 2.91 H (0.55-1.02) mg/dL Glucose 145 H (70-100) mg/dL Calcium (8.5-10.1) mg/dL 02/17/19 Range/Units 16:00 RBC (4.00-5.20) m/cumm Hgb (12.0-15.5) g/dL Hct (36.0-46.0) % RDW (11.7-14.6) % Sodium 134 L (136-145) mmol/L Anion Gap 12.2 H (3-11) mmol/L BUN 47 H (7-18) mg/dL Creatinine 2.96 H (0.55-1.02) mg/dL Glucose 167 H (70-100) mg/dL Calcium 8.3 L (8.5-10.1) mg/dL Vital Signs Temperature 36.5 C 02/17/19 16:22 Temperature Source Tympanic 02/17/19 16:22 Pulse 82 02/17/19 16:22 Pulse Rhythm Regular 02/17/19 08:40 Pulse 81 02/16/19 07:46 Respiratory Rate 87 H 02/17/19 16:22 Respiratory Effort Non-Labored 02/17/19 08:40 Respiratory Depth Normal 02/17/19 08:40 Respiratory Pattern Normal 02/17/19 08:40 Blood Pressure 161/70 H 02/17/19 16:22 Blood Pressure Mean 97 02/16/19 16:00 Blood Pressure Position Supine 02/16/19 10:06 Pulse Oximetry 93 L 02/17/19 17:24 Oxygen Delivery Method Nasal Cannula 02/17/19 17:24 Oxygen Flow Rate 3 02/17/19 17:24 Fraction of Inspired Oxygen (FIO2) 30 02/17/19 08:23 Pain Level 0 02/17/19 16:22 Comment 02/16/19 04:18 Intake & Output 02/16/19 02/17/19 02/17/19 23:59 11:59 23:59 Intake Total 240 / 240 240 / 547.667 307.667 / 547.667 Output Total 950 / 950 1100 / 2575 1475 / 2575 Balance -710 / -710 -860 / -7.333 -1167.333 / -2026.333 Weight 39.5 kg Intake: IV 67.667 / 67.667 Oral 240 / 240 240 / 480 240 / 480 Output: Urine 950 / 950 1100 / 2575 1475 / 2575 Other: Urine Color Pale Yellow Yellow Yellow Urine Appearance Clear Clear Clear Urine Odor Strong Normal Voiding Methods Bedside Commode Bedside Commode Bedside Commode Laboratory Results WBC 10.24 k/cumm (4.4-10.8) 02/17/19 06:58 RBC 2.89 m/cumm (4.00-5.20) L 02/17/19 06:58 Hgb 9.4 g/dL (12.0-15.5) L 02/17/19 12:40 Hct 28.3 % (36.0-46.0) L 02/17/19 12:40 MCV 92.7 fL (80-95) 02/17/19 06:58 MCH 30.1 pg (27.0-33.0) 02/17/19 06:58 MCHC 32.5 g/dL (32.0-36.0) 02/17/19 06:58 RDW 16.5 % (11.7-14.6) H 02/17/19 06:58 Plt Count 303 x1000/uL (130-400) 02/17/19 06:58 MPV 10.1 fL (8.0-11.0) 02/17/19 06:58 Immature Gran % 0.7 02/16/19 04:35 Neutrophils % 64.8 02/16/19 04:35 Lymphocytes % 14.3 02/16/19 04:35 Monocytes % 8.9 02/16/19 04:35 Eosinophils % 10.5 02/16/19 04:35 Basophils % 0.8 02/16/19 04:35 Absolute Neutrophils 6.59 k/cumm (1.2-6.7) 02/16/19 04:35 Absolute Lymphocytes 1.46 k/cumm (1.2-3.4) 02/16/19 04:35 Absolute Monocytes 0.91 k/cumm (0.11-0.7) H 02/16/19 04:35 Absolute Eosinophils 1.07 k/cumm (0.0-0.7) H 02/16/19 04:35 Absolute Basophils 0.08 k/cumm (0.0-0.2) 02/16/19 04:35 Sample Site Right radial 02/16/19 08:50 pCO2 27 mmHg (34-47) L 02/16/19 08:50 pO2 63 mmHg (83-108) L 02/16/19 08:50 O2 Saturation 94 % (94-98) 02/16/19 08:50 ABG pH 7.48 (7.35-7.45) H 02/16/19 08:50 ABG HCO3 20 mmol/L (22-28) L 02/16/19 08:50 ABG Total CO2 18 mmol/L (22-29) L 02/16/19 08:50 ABG Base Excess -3.8 mmol/L (-3-3) L 02/16/19 08:50 FiO2 48 % 02/16/19 08:50 Sodium Cancelled 02/17/19 16:05 Potassium Cancelled 02/17/19 16:05 Chloride Cancelled 02/17/19 16:05 Carbon Dioxide Cancelled 02/17/19 16:05 Anion Gap Cancelled 02/17/19 16:05 BUN Cancelled 02/17/19 16:05 Creatinine Cancelled 02/17/19 16:05 Estimated GFR/1.73 m2 Cancelled 02/17/19 16:05 Glucose Cancelled 02/17/19 16:05 Calcium Cancelled 02/17/19 16:05 Magnesium Cancelled 02/17/19 16:05 Total Bilirubin 0.7 mg/dL (0.2-1.0) 02/16/19 04:35 AST 21 U/L (15-37) 02/16/19 04:35 ALT 15 U/L (14-59) 02/16/19 04:35 Alkaline Phosphatase 83 U/L (46-116) 02/16/19 04:35 Troponin I < 0.05 ng/mL (0.00-0.06) 02/17/19 16:05 NT-Pro-B Natriuret Pep 78479 pg/mL (-299) H 02/16/19 04:35 Total Protein 7.1 g/dL (6.4-8.2) 02/16/19 04:35 Albumin 3.2 g/dL (3.4-5.0) L 02/16/19 04:35
[2019-02-17] MEDS: Heparin 5,000 UNITS/ML VIAL 5000 UNITS SC (20:24)
[2019-02-17] MEDS: Gabapentin 100 MG CAP PO (22:36)
[2019-02-17] MEDS: Atorvastatin 20 MG TAB PO (22:36)
[2019-02-18] VITALS (18 sets, daily range): BP systolic 154–166; BP diastolic 70–81; PULSE 57–82; RESP 14–20; TEMP 36.2–37.5; O2SAT 85–98
[2019-02-18 07:22] LABS: HCT 28.6 % (36.0-46.0); HGB 9.3 g/dL (12.0-15.5); Mean Corp. HGB Concentration 32.5 g/dL (32.0-36.0); Mean Corpuscular Hemoglobin 30.2 pg (27.0-33.0); Mean Corpuscular Volume 92.9 fL (80-95); Mean Platelet Volume 9.8 fL (8.0-11.0); Platelet Count 322 x1000/uL (130-400); RBC 3.08 m/cumm (4.00-5.20); White Blood Cell Count 11.21 k/cumm (4.4-10.8)
[2019-02-18 07:30] LABS: Anion Gap 10.9 mmol/L (3-11); BUN 49 mg/dL (7-18); CO2 28.1 mmol/L (21.0-32.0); CREATININE 2.76 mg/dL (0.55-1.02); Calcium 8.7 mg/dL (8.5-10.1); Chloride 100 mmol/L (98-107); Estimated GFR 16.99 (mL/min/1.73m2); Glucose 91 mg/dL (70-100); Magnesium 1.9 mg/dL (1.8-2.4); Potassium 3.3 mmol/L (3.5-5.1); Sodium 139 mmol/L (136-145)
[2019-02-18] MEDS: amLODIPine 5 MG TAB PO (08:50)
[2019-02-18] MEDS: Calcium Carbonate *TUMS* 500 MG CHEW PO ×2 (08:50→19:41)
[2019-02-18] MEDS: Famotidine 20 MG TAB PO ×2 (08:50→19:42)
[2019-02-18] MEDS: hydrALAZINE 25 MG TAB PO ×3 (08:50→19:42)
[2019-02-18] MEDS: Aspirin E.C. 81 MG TABEC PO (08:50)
[2019-02-18] MEDS: Isosorbide Dinitrate 10 MG TAB 20 MG PO ×3 (08:50→19:41)
[2019-02-18] MEDS: Carvedilol 12.5 MG TAB PO ×2 (08:50→19:42)
[2019-02-18] MEDS: Levothyroxine 75 MCG TAB PO (08:50)
[2019-02-18] MEDS: Potassium Chloride 20 MEQ TABCR 40 MEQ PO ×2 (08:56→19:41)
[2019-02-18] MEDS: Normal Saline Flush 10 ML SYR IVP ×2 (10:38→16:18)
[2019-02-18] MEDS: Furosemide 40 MG TAB PO (10:45)
--- NOTE | 2019-02-18 12:26 | PGE_ITS ---
Date of Service Date of service: 02/18/19 Time of Service: 12:26 Assessment and Plan Assessment and plan (1) Acute on chronic systolic CHF (congestive heart failure): Status: Acute Assessment and plan: The patient was transitioned to PO lasix this morning in preparation for possible discharge, but it is now evident that the patient could benefit from additional IV lasix. Latest EF known to me is 54%, improved. These exacerbations seem to always be correlated with hypertensive emergencies. Reinitiate lasix gtt. (2) Hypertensive emergency: Status: Acute Assessment and plan: as above BP's are getting better. (3) Acute respiratory failure with hypoxia: Status: Acute Assessment and plan: Due to fluid overload/acute exacerbation of CHF. Improving with diuresis. Continue to wean O2 as tolerated. (4) Acute kidney injury superimposed on chronic kidney disease: Status: Acute Assessment and plan: Tolerating diuresis. Resume lasix gtt and continue to monitor Cr. (5) Renal artery stenosis: Status: Chronic Assessment and plan: S/p stenting. Patient remains prone to hypertensive crises. Follow up as outpatient at [facility] (6) Abdominal aortic aneurysm (AAA) without rupture: Status: Chronic Assessment and plan: Follow up with vascular as outpatient (7) DVT prophylaxis: Status: Acute Assessment and plan: heparin SC (8) Discharge planning issues: Status: Acute Assessment and plan: Full code Consult palliative care. Subjective Subjective Interval history since last seen: Ms Harmon states she is a lot better today. She is no longer requiring oxygen at rest, but desaturated to 85% while ambulating. She denies dizziness, chest pain, shortness of breath at rest, nausea, vomiting. Exam Narrative Exam Narrative: General: Very pleasant elderly female, sitting up in a chair HEENT: EOMI, MMM Heart: RRR, no m/r/g Lungs: diminished at B bases, improved from yesterday, but still dull at bases GI: abdomen is soft, nontender, nondistended Extremities: no e/c/c BLE's Objective Objective Clinical Data: Abnormal lab results 02/17/19 02/17/19 02/18/19 Range/Units 12:40 16:00 07:00 WBC (4.4-10.8) k/cumm RBC (4.00-5.20) m/cumm Hgb 9.4 L (12.0-15.5) g/dL Hct 28.3 L (36.0-46.0) % RDW (11.7-14.6) % Sodium 134 L (136-145) mmol/L Potassium 3.3 L (3.5-5.1) mmol/L Anion Gap 12.2 H (3-11) mmol/L BUN 47 H 49 H (7-18) mg/dL Creatinine 2.96 H 2.76 H (0.55-1.02) mg/dL Glucose 167 H (70-100) mg/dL Calcium 8.3 L (8.5-10.1) mg/dL 02/18/19 Range/Units 07:00 WBC 11.21 H (4.4-10.8) k/cumm RBC 3.08 L (4.00-5.20) m/cumm Hgb 9.3 L (12.0-15.5) g/dL Hct 28.6 L (36.0-46.0) % RDW 17.0 H (11.7-14.6) % Sodium (136-145) mmol/L Potassium (3.5-5.1) mmol/L Anion Gap (3-11) mmol/L BUN (7-18) mg/dL Creatinine (0.55-1.02) mg/dL Glucose (70-100) mg/dL Calcium (8.5-10.1) mg/dL Vital Signs Temperature 36.7 C 02/18/19 11:20 Temperature Source Tympanic 02/18/19 11:20 Pulse 57 L 02/18/19 11:20 Pulse Rhythm Regular 02/18/19 09:07 Pulse 81 02/16/19 07:46 Respiratory Rate 14 02/18/19 11:20 Respiratory Effort Non-Labored 02/18/19 09:07 Respiratory Depth Normal 02/18/19 09:07 Respiratory Pattern Normal 02/18/19 09:07 Blood Pressure 162/77 H 02/18/19 11:20 Blood Pressure Mean 97 02/16/19 16:00 Blood Pressure Position Supine 02/16/19 10:06 Pulse Oximetry 93 L 02/18/19 11:20 Oxygen Delivery Method Room Air 02/18/19 11:20 Oxygen Flow Rate 0 02/18/19 11:20 Fraction of Inspired Oxygen (FIO2) 30 10/24/19 08:23 Pain Level 0 02/18/19 11:20 Comment 02/18/19 07:15 Intake & Output 02/17/19 02/18/19 02/18/19 23:59 11:59 23:59 Intake Total 547.667 / 787.667 220 / 220 Output Total 1925 / 3025 600 / 600 Balance -1377.333 / -2237.333 -380 / -380 Weight 38.9 kg Intake: IV 67.667 / 67.667 100 / 100 Oral 480 / 720 120 / 120 Output: Urine 1925 / 3025 600 / 600 Other: Urine Color Yellow Pale Yellow Urine Appearance Clear Clear Urine Odor None Stool Size Moderate Stool Characteristics Soft Brown Voiding Methods Bedside Commode Toilet Laboratory Results WBC 11.21 k/cumm (4.4-10.8) H 02/18/19 07:00 RBC 3.08 m/cumm (4.00-5.20) L 02/18/19 07:00 Hgb 9.3 g/dL (12.0-15.5) L 02/18/19 07:00 Hct 28.6 % (36.0-46.0) L 02/18/19 07:00 MCV 92.9 fL (80-95) 02/18/19 07:00 MCH 30.2 pg (27.0-33.0) 02/18/19 07:00 MCHC 32.5 g/dL (32.0-36.0) 02/18/19 07:00 RDW 17.0 % (11.7-14.6) H 02/18/19 07:00 Plt Count 322 x1000/uL (130-400) 02/18/19 07:00 MPV 9.8 fL (8.0-11.0) 02/18/19 07:00 Immature Gran % 0.7 02/16/19 04:35 Neutrophils % 64.8 02/16/19 04:35 Lymphocytes % 14.3 02/16/19 04:35 Monocytes % 8.9 02/16/19 04:35 Eosinophils % 10.5 02/16/19 04:35 Basophils % 0.8 02/16/19 04:35 Absolute Neutrophils 6.59 k/cumm (1.2-6.7) 02/16/19 04:35 Absolute Lymphocytes 1.46 k/cumm (1.2-3.4) 02/16/19 04:35 Absolute Monocytes 0.91 k/cumm (0.11-0.7) H 02/16/19 04:35 Absolute Eosinophils 1.07 k/cumm (0.0-0.7) H 02/16/19 04:35 Absolute Basophils 0.08 k/cumm (0.0-0.2) 02/16/19 04:35 Sample Site Right radial 02/16/19 08:50 pCO2 27 mmHg (34-47) L 02/16/19 08:50 pO2 63 mmHg (83-108) L 02/16/19 08:50 O2 Saturation 94 % (94-98) 02/16/19 08:50 ABG pH 7.48 (7.35-7.45) H 02/16/19 08:50 ABG HCO3 20 mmol/L (22-28) L 02/16/19 08:50 ABG Total CO2 18 mmol/L (22-29) L 02/16/19 08:50 ABG Base Excess -3.8 mmol/L (-3-3) L 02/16/19 08:50 FiO2 48 % 02/16/19 08:50 Sodium 139 mmol/L (136-145) 02/18/19 07:00 Potassium 3.3 mmol/L (3.5-5.1) L 02/18/19 07:00 Chloride 100 mmol/L (98-107) 02/18/19 07:00 Carbon Dioxide 28.1 mmol/L (21.0-32.0) 02/18/19 07:00 Anion Gap 10.9 mmol/L (3-11) 02/18/19 07:00 BUN 49 mg/dL (7-18) H 02/18/19 07:00 Creatinine 2.76 mg/dL (0.55-1.02) H 02/18/19 07:00 Estimated GFR/1.73 m2 16.99 (mL/min/1.73m2) 02/18/19 07:00 Glucose 91 mg/dL (70-100) D 02/18/19 07:00 Calcium 8.7 mg/dL (8.5-10.1) 02/18/19 07:00 Magnesium 1.9 mg/dL (1.8-2.4) 02/18/19 07:00 Total Bilirubin 0.7 mg/dL (0.2-1.0) 02/16/19 04:35 AST 21 U/L (15-37) 02/16/19 04:35 ALT 15 U/L (14-59) 02/16/19 04:35 Alkaline Phosphatase 83 U/L (46-116) 02/16/19 04:35 Troponin I < 0.05 ng/mL (0.00-0.06) 02/17/19 16:05 NT-Pro-B Natriuret Pep 72729 pg/mL (-299) H 02/16/19 04:35 Total Protein 7.1 g/dL (6.4-8.2) 02/16/19 04:35 Albumin 3.2 g/dL (3.4-5.0) L 02/16/19 04:35
--- NOTE | 2019-02-18 16:39 | PDOC.CMPRO ---
Care Management Progress Note S/O: CM met with Charlene and Rodolfo throughout the day. Charlene has decided to F/U with cardiology at [facility] and cancelled her appointment in [place]. She continues to be closely monitored. She ambulated through the hallways with Rodolfo without oxygen on. She reported looking forward to her planned trip with her on Thursday. CM continues to follow. A: 68 year old female admitted to [facility] 02/16/19 for SOB, wheezing P: Charlene will be discharged home when medically ready per provider. She will follow up with her PCP and plan of care as prescribed. Anticipate no additional services at time of discharge. CM to continue to provide support discharge planning.
[2019-02-18] MEDS: Heparin 5,000 UNITS/ML VIAL 5000 UNITS SC (19:42)
[2019-02-18] MEDS: Gabapentin 100 MG CAP PO (21:19)
[2019-02-18] MEDS: Atorvastatin 20 MG TAB PO (21:19)
[2019-02-19 03:15] VITALS: BP 165/68; PULSE 67; RESP 18; TEMP 36.9; O2SAT 96
[2019-02-19] MEDS: Levothyroxine 75 MCG TAB PO (06:35)
[2019-02-19 06:44] LABS: Abs Immature Grans 0.04 k/cumm (0.0-0.09); Absolute Basophil Count 0.05 k/cumm (0.0-0.2); Absolute Eosinophil Count 0.73 k/cumm (0.0-0.7); Absolute Lymphocyte Count 1.89 k/cumm (1.2-3.4); Absolute Monocyte Count 1.01 k/cumm (0.11-0.7); Absolute Neutrophil Count 5.92 k/cumm (1.2-6.7); Basophils % 0.5; Eosinophils % 7.6; HCT 31.9 % (36.0-46.0); HGB 10.3 g/dL (12.0-15.5); Immature Grans % 0.4; Lymphocytes % 19.6; Mean Corp. HGB Concentration 32.3 g/dL (32.0-36.0); Mean Corpuscular Hemoglobin 29.9 pg (27.0-33.0); Mean Corpuscular Volume 92.7 fL (80-95); Monocytes % 10.5; Neutrophils % 61.4; Platelet Count 340 x1000/uL (130-400); RBC 3.44 m/cumm (4.00-5.20); RBC Distribution Width 16.8 % (11.7-14.6); White Blood Cell Count 9.64 k/cumm (4.4-10.8)
[2019-02-19 07:00] LABS: Anion Gap 9.2 mmol/L (3-11); BUN 47 mg/dL (7-18); CO2 27.8 mmol/L (21.0-32.0); CREATININE 2.64 mg/dL (0.55-1.02); Calcium 8.7 mg/dL (8.5-10.1); Chloride 98 mmol/L (98-107); Estimated GFR 17.88 (mL/min/1.73m2); Glucose 106 mg/dL (70-100); Magnesium 1.9 mg/dL (1.8-2.4); Potassium 3.7 mmol/L (3.5-5.1); Sodium 135 mmol/L (136-145)
[2019-02-19 07:55] VITALS: BP 178/78; PULSE 74; RESP 18; TEMP 36.1; O2SAT 96
[2019-02-19 08:15] VITALS: PULSE 66
[2019-02-19] MEDS: Isosorbide Dinitrate 10 MG TAB 20 MG PO ×2 (08:18→13:36)
[2019-02-19] MEDS: Aspirin E.C. 81 MG TABEC PO (08:19)
[2019-02-19] MEDS: Potassium Chloride 20 MEQ TABCR 40 MEQ PO (08:19)
[2019-02-19] MEDS: Famotidine 20 MG TAB PO (08:19)
[2019-02-19] MEDS: Calcium Carbonate *TUMS* 500 MG CHEW PO (08:19)
[2019-02-19] MEDS: hydrALAZINE 25 MG TAB PO ×2 (08:20→13:36)
[2019-02-19] MEDS: Carvedilol 12.5 MG TAB PO (08:20)
[2019-02-19] MEDS: amLODIPine 5 MG TAB PO (08:20)
[2019-02-19 11:44] VITALS: BP 166/80; PULSE 82; RESP 20; TEMP 36; O2SAT 93
--- NOTE | 2019-02-19 13:12 | W.PM.DS.N ---
Date of service: 02/19/19 Time of Service: 13:13 DS: Diagnosis Discharge Diagnosis (1) Acute on chronic systolic CHF (congestive heart failure): Status: Acute (2) Hypertensive emergency: Status: Acute (3) Acute respiratory failure with hypoxia: Status: Acute (4) Acute kidney injury superimposed on chronic kidney disease: Status: Acute (5) Renal artery stenosis: Status: Chronic (6) Abdominal aortic aneurysm (AAA) without rupture: Status: Chronic Discharge Plan Disposition Patient Disposition: HOME Condition: Stable Discharge Details Chief Complaint: SOB Clinical Impression: Bronchospasm, CKD (chronic kidney disease) stage 4, GFR 15-29 ml/min Reason For Visit: SOB,WHEEZING Admit Date/Time: 02/18/19 12:30 Admit Provider: Regan Sharpe Attending Provider: Regan Sharpe Primary Care Provider: Sanjuanita Lee ED Provider: Juan Mcqueen [facility] Hospital Course Hospital Course: Chief Complaint: Dyspnea HPI: 68 year old woman with a history of CHF AND Hypertensive Emergency with Flash Pulmonary Edema requiring multiple prior hospitalizations, admitted from [facility] Emergency Department on 02/16 with a diagnosis of Acute CHF. Mrs. Harmon has a Past Medical History significant for CKD Stage 4, HTN, AAA, and Hypothyroidism. She was found to have a right Renal Artery Stenosis, for which she underwent intervention with a bypass in August of this year. There is mention of an acute Hepatitis B infection in the past, for which she has undergone prior treatment. She has had prior episodes of Flash Pulmonary Edema in the setting of Hypertensive Emergency, as well as a prior hospitalization due to medication induced hypotension with syncope. Her other history includes CHF, with LVEF originally at 30% improved to 54% by ECHO in August of this year. However, she was hospitalized at [facility] last month, and ECHO performed then showed a significant drop in her LV Function, with an EF documented at 20-25%. She also had evidence of moderate MR/TR, mild PHTN, and severe LAE. She also underwent a negative nuclear stress test, as well laboratory work-up for non-ischemic evaluation with KAYLEE, RF, Lyme titers, HIV, Hepatitis panel, and free lyte chains. Other work-up included a right heart catheterization. At time of discharge she was not initiated on diuretic therapy due to hyponatremia with a sodium of 125, as well as a clinically euvolemic state. The patient presented to the ED locally with complaints of gradually worsening dyspnea, including orthopnea. Work-up was significant for increased interstial infiltrates and Edema by CXR, ProBNP of 60,320, and creatinine of 3, same as discharge value from [facility] one month earlier. She was admitted for further evaluation and treatment of acute CHF Exacerbation. Hospital Course: (1) Acute CHF Exacerbation: Clear drop in LVEF from 54 --> 20% over the course of a 4 month period, likely non-ischemic by work-up at [facility]. Also by history this appeared much more in line with an acute CHF exacerbation rather than Hypertensive Emergency, something that she has been hospitalized for multiple times in the past. - Her weight at discharge from [facility] last month was 35.6 Kg, with current weight of 36.9 - however, she is not hyponatremic currently, with a creatinine closer to her baseline at 2.64, and no evidence of volume overload by exam. Would recommend patient maintain weight at 36.5 to 37.5 Kg if possible. Will discharge on low dose BID Furosemide with repeat BMP in 3 days. Unfortunately as patient is planning a trip to [facility], she would prefer discharge rather than staying in the hospital for additional night of monitoring weight on new diuretic dosing. Discussed low sodium, fluid restricted diet in detail as well. Blood Pressure control as below. Please note that ABBY-I, ARB, and Spironolactone were not initiated due to patient's underlying kidney disease. (2) HTN With history of Hypertensive Urgency/Emergency requiring hospitalization. - Continue CCB and BB therapy. ABBY-I/ARB with significant elevation in creatinine in the past. Would avoid thiazide and Spironolactone as well. Has tolerated low dose a-blockers in the past as well. On prn Clonidine and Diuretic therapy as well. 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 Please also note that Mrs. Harmon's blood pressure at discharge is not ideal. This is a chronic finding for her, and normally her blood pressure vastly improves with return home. In fact, in the past she has had 2 seperate incidences of hypotension following hospitalization, including in December when her Amlodipine was increased, and generally induced by increase in antihypertensive medications prior to discharge home. She has returned to her home regimen currently, which was maintaining relatively good pressures with at home, along with new diuretic therapy. Plan will be for close monitoring of BPs at home, with call to highway traffic control technician or PCP if not ideally controlled. (3) Acute kidney injury superimposed on CKD: Current creatinine appears stable and at baseline. Continue to avoid Nephrotoxins, and renally dose medications when appropriate. Current clearance calculated at 4. (4) CKD (chronic kidney disease): Stage IV CKD at baseline, currently with stable values. Plans for close outpatient follow-up, with repeat renal panel in 3-5 days post discharge to ensure stability. (5) Abdominal aortic aneurysm (AAA) without rupture: Noted. Continue BB, ASA, and statin therapy. (6) Essential hypertension: Blood pressure treatment as above. (7) Hypothyroidism: Levothyroxine dose increased in setting of TSH >10 during her last hospitalization here, and again at [facility] for a TSH >8. Recommend repeat TSH in 4-6 weeks. (8) Code Status: Full Code Home Meds and New Rx's Prescriptions: New furosemide 20 mg tablet 20 mg PO BID Qty: 60 RF: 0 Continued famotidine 20 mg tablet 20 mg PO BID Qty: 180 RF: 3 amlodipine 5 mg tablet 5 mg PO DAILY RF: 0 aspirin [Aspir-81] 81 MG tablet,delayed release (DR/EC) 81 mg PO DAILY RF: 0 clonidine HCl 0.1 mg tablet 0.1 mg PO PRN RF: 0 atorvastatin 20 mg tablet 20 mg PO QHS RF: 0 carvedilol 12.5 mg tablet 12.5 mg PO BID RF: 0 hydralazine 25 mg tablet 25 mg PO TID RF: 0 isosorbide dinitrate 20 mg tablet 20 mg PO TID RF: 0 levothyroxine 75 mcg capsule 75 mcg PO DAILY RF: 0 acetaminophen 500 mg Tablet 500 mg PO PRN PRNRF: 0 gabapentin 100 mg Capsule 100 mg PO HS RF: 0 Discharge Instructions Additional Instructions: Please see your Primary Care Physician on Thursday of this week, upon returning from [facility]. Please repeat blood work prior to leaving on your trip. Maintain a weight of 80-82 pounds - weigh yourself daily, and limit your liquid intake to a total of 1.5 L. An appointment will be made for you with a Enrollment Advisor. Stand Alone Forms: Nursing Discharge Form Referrals: Regan Horner MD [MD CONSULTING PHYSICIAN] - 03/22/19 1:20 pm Activity:: No strenuous activity. Equipment/Supplies:: No Equipment Needed Diet:: Low Sodium Discharge Orders Discharge Orders: Discharge Order (Routine); Ordered 02/19/19 Ordered By: Yasmany Lake Other Ambulatory Orders: Basic Metabolic Panel (Routine) Timeframe: 2 Days Location: None Selected Ordered By: Yasmany Lake DS: Summary Status at Discharge Functional status at discharge: independent ambulation Overall status at discharge: patient is back to baseline Mental Status: mental status grossly normal Speech and Movement: speech and movement normal Mood: congruent mood Affect: normal affect Exam Narrative Exam Narrative: General: Patient appears comfortable, thin but not cachectic, AAOX3, NAD Neck: Supple CV: Regular, nontachycardic, 3/6 LLSB Murmur appreciated. Pulmonary: Clear to auscultation bilaterally, no crackles, wheezing, or rhonchi Abdomen: + Bowel Sounds, soft, nontender, nondistended Vascular: No lower extremity edema Psych: Normal mood and affect. Psych Mental Status: mental status grossly normal Speech and Movement: speech and movement normal Mood: congruent mood Affect: normal affect DS: Data Vitals/I&O Vitals and I&O: Vital Signs Temperature 36.0 C L 02/19/19 11:44 Temperature Source Tympanic 02/19/19 11:44 Pulse 82 02/19/19 11:44 Pulse Rhythm Regular 02/19/19 09:14 Pulse 81 02/16/19 07:46 Respiratory Rate 20 02/19/19 11:44 Respiratory Effort Non-Labored 02/19/19 09:14 Respiratory Depth Normal 02/19/19 09:14 Respiratory Pattern Normal 02/19/19 09:14 Blood Pressure 166/80 H 02/19/19 11:44 Blood Pressure Mean 97 02/16/19 16:00 Blood Pressure Position Supine 02/16/19 10:06 Pulse Oximetry 93 L 02/19/19 11:44 Oxygen Delivery Method Room Air 02/19/19 11:44 Oxygen Flow Rate 0 02/19/19 11:44 Fraction of Inspired Oxygen (FIO2) 30 02/17/19 08:23 Pain Level 0 02/19/19 11:44 Comment 02/19/19 11:44 Intake & Output 02/18/19 02/19/19 02/19/19 23:59 11:59 23:59 Intake Total 370 / 421.458 51.458 / 421.458 Output Total 2100 / 2700 1750 / 1750 Balance -2100 / -2480 -1380 / -1328.542 51.458 / -1328.542 Weight 36.9 kg Intake: IV 51.458 / 51.458 Oral 370 / 370 Output: Urine 2100 / 2700 1750 / 1750 Other: Urine Color Yellow Yellow Urine Appearance Clear Clear Urine Odor None Strong Stool Occult Blood Negative Negative Stool Size Small Small Stool Characteristics Soft Formed Formed Brown Voiding Methods Toilet Toilet Data Completed and Pending Completed studies during hospitalization [Text1]: Exam(s) 02/16/2019 a RAD:XR chest 2V PA & lateral EXAM: XR CHEST 2V PA LATERAL INDICATION: shortness of breath. COMPARISON: XR PORTABLE CHEST AP from 12/09/2018 TECHNIQUE: 2D digital imaging was performed. FINDINGS: The interstitial infiltrates/edema have increased since the previous study. Small bilateral pleural effusions, right greater than left, appear stable. The heart is not enlarged. There is no acute bony abnormality. IMPRESSION: Increasing interstitial infiltrates/edema. No focal consolidation is seen. Labs on day of discharge: Labs from last 24 hours 02/19/19 02/19/19 06:22 06:22 WBC 9.64 RBC 3.44 L Hgb 10.3 L Hct 31.9 L MCV 92.7 MCH 29.9 MCHC 32.3 RDW 16.8 H Plt Count 340 MPV 10.0 Immature Gran % 0.4 Neutrophils % 61.4 Lymphocytes % 19.6 Monocytes % 10.5 Eosinophils % 7.6 Basophils % 0.5 Absolute Neutrophils 5.92 Absolute Lymphocytes 1.89 Absolute Monocytes 1.01 H Absolute Eosinophils 0.73 H Absolute Basophils 0.05 Sodium 135 L Potassium 3.7 Chloride 98 Carbon Dioxide 27.8 Anion Gap 9.2 BUN 47 H Creatinine 2.64 H Estimated GFR/1.73 m2 17.88 Glucose 106 H Calcium 8.7 Magnesium 1.9 [facility] History Abdominal aortic aneurysm (AAA) without rupture (Chronic 01/04/16) 02/26/13-CT scan infra-renal, 3.1 cm, 03/16/2018 [facility] Vascular Dr Moody. 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 EGD W/ BS (Resolved 08/12/12) DR CANCHOLA Hysterectomy, Laproscopic (Chronic ~01/1984) Status post surgery (Acute 09/07/18) right external iliac to right renal artery bypass with reversed rifht greater saphenous vein, [facility] Family History Grandmother Essential hypertension Mother , age 68 of ovarian cancer Ovarian cancer Father , age 60 of emphysema Emphysema lung Smoker Sister Essential hypertension Brother , age 34 of suicide Suicide Son No problems noted. Daughter No problems noted. 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 Pets and animals: Yes Current gender identity: female What is your relationship status?: How often do you talk on the phone with friends or family?: three or more times per week How often do you get together with friends or relatives?: once per week Panel score (0-1 are the most socially isolated patients): 2 What type of physical activity do you participate in: none Special yanira needs: No Agree to transfusion: Yes Seatbelt use: always Drive intox or ride w/intox route relief 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 She felt her health was under control until surgery at [facility]. Surprised to find herself so debilitated.
[2019-02-19 13:22] VITALS: PULSE 73
[2019-02-19 13:35] VITALS: BP 145/73; PULSE 74
--- NOTE | 2019-02-19 18:07 | CMDISCH_ITS ---
- If Service Date Differs Date of service: 02/19/19 Time of Service: 18:07 LACE Index Scoring Tool - Questions: Length of Stay (in days): 4 - 6 Acuity (Admit via E.D.?): Yes Comorbidities: Congestive Heart Failure, Liver or Renal Disease E.D. Visits: 7 - Answers: Total Score: 16 Risk of Readmission: High Risk Care Management Discharge Reason for Hospitalization: SOB, Wheezing Discharge Plan: Charlene is being discharged home today she will follow up with cardiology and nephrology as planned. CM provided education r/t heart failure including ask me three and CHF book. She will have resumption of home health services which CM contacted [facility] and provided discharge information. Charlene states she feels ready to return home her daugther and spouse present during discharge education. Patient/Family Education Needs: Discharge education, limitations and follow up plan of care. Ask me three, self management and CHF teaching including daily weights, diuretics and sodium intake. Services Needed at Discharge: Home Health Care Services
== END 2019-02-19 15:49 | disposition home or self-care (01) | DRG 291 ==
LOC: ER 07:34 → ICU 07:53 → MS 02-17 10:07
PROVIDERS: Internal Medicine; Admitting Provider General Practice; Emergency Provider Emergency Medicine; PCP Internal Medicine; Visit Provider Internal Medicine
DX: I50.23 Acute on chronic systolic (congestive) heart failure (principal); J96.01 Acute respiratory failure with hypoxia; I16.1 Hypertensive emergency; N18.4 Chronic kidney disease, stage 4 (severe); N17.9 Acute kidney failure, unspecified; I42.9 Cardiomyopathy, unspecified; I12.9 Hypertensive chronic kidney disease with stage 1 through stage 4 chronic kidney disease, or unspecified chronic kidney disease; I70.1 Atherosclerosis of renal artery; I71.4 Abdominal aortic aneurysm, without rupture; E03.9 Hypothyroidism, unspecified; K21.9 Gastro-esophageal reflux disease without esophagitis; Z87.891 Personal history of nicotine dependence
CPT/HCPCS: 36415; 80048; 80053; 82805; 85027; 93005; 94640; 99222; 99232; 99239; 99285; NC; 36600; 71046; 83735; 83880; 84484; 85014; 85018; 85025; 93010; 99219; G0378; J1644; J1940; J2930; J7613; J7620

== ENCOUNTER 2019-02-21 02:11 | Outpatient (CLI) | payer MEDICARE, BC, SELFPAY ==
[2019-02-21 08:21] LABS: Anion Gap 12.1 mmol/L (3-11); BUN 62 mg/dL (7-18); CO2 27.9 mmol/L (21.0-32.0); CREATININE 2.99 mg/dL (0.55-1.02); Calcium 8.9 mg/dL (8.5-10.1); Chloride 94 mmol/L (98-107); Estimated GFR 15.49 (mL/min/1.73m2); Glucose 172 mg/dL (70-100); Sodium 134 mmol/L (136-145)
== END 2019-02-21 02:31 ==
PROVIDERS: PCP Internal Medicine; Visit Provider Internal Medicine
DX: N17.9 Acute kidney failure, unspecified (principal); N18.9 Chronic kidney disease, unspecified
CPT/HCPCS: 36415; 80048

== ENCOUNTER → 2019-03-22 13:08 | Outpatient (BNVA) | payer MEDICARE, BC, SELFPAY | PROVIDERS: PCP Internal Medicine; Referring Provider Internal Medicine; Visit Provider Internal Medicine Cardiovascular Disease | DX: I42.9 Cardiomyopathy, unspecified (principal); N18.4 Chronic kidney disease, stage 4 (severe); I13.0 Hypertensive heart and chronic kidney disease with heart failure and stage 1 through stage 4 chronic kidney disease, or unspecified chronic kidney disease; I08.1 Rheumatic disorders of both mitral and tricuspid valves; I50.9 Heart failure, unspecified | CPT/HCPCS: 99205; 99215 ==

== ENCOUNTER 2019-04-01 01:27 | Outpatient (CLI) | payer MEDICARE, BC, SELFPAY ==
[2019-04-01 14:52] LABS: Anion Gap 11.8 mmol/L (3-11); BUN 38 mg/dL (7-18); CO2 24.2 mmol/L (21.0-32.0); CREATININE 2.32 mg/dL (0.55-1.02); Calcium 9.1 mg/dL (8.5-10.1); Chloride 102 mmol/L (98-107); Estimated GFR 20.75 (mL/min/1.73m2); Glucose 129 mg/dL (74-106); Potassium 3.5 mmol/L (3.5-5.1); Sodium 138 mmol/L (136-145)
== END 2019-04-01 01:47 ==
PROVIDERS: PCP Internal Medicine; Visit Provider Internal Medicine Cardiovascular Disease
DX: E87.6 Hypokalemia (principal)
CPT/HCPCS: 36415; 80048

== ENCOUNTER 2019-04-06 16:03 | Outpatient (REF) | payer MEDICARE, BC, SELFPAY | END 2019-04-06 16:23 | LOC: LBN 16:03 | PROVIDERS: PCP Internal Medicine; Visit Provider Nurse Practitioner | DX: R19.7 Diarrhea, unspecified (principal) | CPT/HCPCS: 87324 ==

== ENCOUNTER 2019-04-13 13:18 | Outpatient (REF) | payer MEDICARE, BC, SELFPAY ==
[2019-04-13 15:14] LABS: Potassium 4.6 mmol/L (3.5-5.1)
== END 2019-04-13 13:38 ==
LOC: LBN 13:18
PROVIDERS: PCP Internal Medicine; Visit Provider Internal Medicine
DX: E87.6 Hypokalemia (principal)
CPT/HCPCS: 84132

== ENCOUNTER 2019-04-18 01:26 | Outpatient (CLI) | payer MEDICARE, BC, SELFPAY ==
[2019-04-18 13:51] LABS: Potassium 3.4 mmol/L (3.5-5.1)
== END 2019-04-18 01:46 ==
PROVIDERS: PCP Internal Medicine; Visit Provider Internal Medicine
DX: N18.4 Chronic kidney disease, stage 4 (severe) (principal)
CPT/HCPCS: 36415; 84132

== ENCOUNTER 2019-04-28 11:12 | Outpatient (CLI) | payer MEDICARE, BC, SELFPAY ==
[2019-04-28 11:57] LABS: Potassium 3.3 mmol/L (3.5-5.1)
== END 2019-04-28 11:32 ==
PROVIDERS: PCP Internal Medicine; Visit Provider Nurse Practitioner Adult Health
DX: E87.6 Hypokalemia (principal)
CPT/HCPCS: 36415; 84132

== ENCOUNTER 2019-05-09 11:11 | Outpatient (CLI) | payer MEDICARE, BC, SELFPAY ==
[2019-05-09 12:33] LABS: Potassium 4.1 mmol/L (3.5-5.1)
== END 2019-05-09 11:31 ==
PROVIDERS: PCP Internal Medicine; Visit Provider Internal Medicine
DX: E87.6 Hypokalemia (principal)
CPT/HCPCS: 36415; 84132

== ENCOUNTER → 2019-05-10 13:32 | Outpatient (BNVA) | payer MEDICARE, BC, SELFPAY | PROVIDERS: PCP Internal Medicine; Referring Provider Internal Medicine; Visit Provider Internal Medicine Cardiovascular Disease | DX: I42.9 Cardiomyopathy, unspecified (principal); I12.9 Hypertensive chronic kidney disease with stage 1 through stage 4 chronic kidney disease, or unspecified chronic kidney disease; I70.1 Atherosclerosis of renal artery; N18.4 Chronic kidney disease, stage 4 (severe) | CPT/HCPCS: 99214 ==

== ENCOUNTER → 2019-06-16 11:27 | Outpatient (BNVA) | payer MEDICARE, BC, SELFPAY ==
--- NOTE | 2019-06-16 12:46 | PDOC.ANES ---
Date of service: 06/16/19 Time of Service: 12:46 Anesthesia Note Report Anesthesia Note: Asked to review Charlene's medical record for an upcoming colonscopy in order to be cleared for a kidney transplant. After reviewing her history to include shortness of breath, stage IV kidney failure with ongoing metabolic acidosis, and last echo showing an EF of 20-25% which was a notable drop from her prior earlier in the year, I do not see her as a good candidate to have an elective procedure at this hospital. Office notified and they will reach out to the patient to make further referral plans.
== END ==
PROVIDERS: PCP Internal Medicine; Referring Provider Internal Medicine; Visit Provider Physical Therapy Assistant
DX: Z12.11 Encounter for screening for malignant neoplasm of colon (principal)

== ENCOUNTER 2019-06-29 10:29 | Outpatient (REF) | payer MEDICARE, BC, SELFPAY ==
--- NOTE | 2019-06-29 10:15 | PAPFT_PTH ---
PATIENT: Charlene Harmon LOC: [facility] U#:[id number] AGE/SX: 68/F ROOM: RE06/29/[address]: Sanjuanita Lee MD : 1950 BED: DIS: 06/29/2019 SPEC #: [id number] RECD: 06/29/19 12:46 STATUS: MARRY REQ #: [id number] EDUARD: 06/29/19 10:[address]: Sanjuanita Lee DEPT: [facility] Cytology RECD BY: Harika Cuevas Tissues: 1 - CX/ENDOCX FOR PAP SMEARS Procedures: PAP THIN PREP/UVM Screening HPV DNA PROBE Comments: [id number]
== END 2019-06-29 10:49 ==
LOC: LBN 10:29
PROVIDERS: PCP Internal Medicine; Visit Provider Internal Medicine
DX: Z12.4 Encounter for screening for malignant neoplasm of cervix (principal); Z11.51 Encounter for screening for human papillomavirus (HPV)
CPT/HCPCS: 88142; 87624

== ENCOUNTER 2019-06-29 10:43 | Outpatient (CLI) | payer MEDICARE, BC, SELFPAY ==
[2019-06-29 12:45] LABS: HGB 11.8 g/dL (12.0-15.5); Mean Corp. HGB Concentration 32.8 g/dL (32.0-36.0); Mean Corpuscular Hemoglobin 29.8 pg (27.0-33.0); Mean Corpuscular Volume 90.9 fL (80-95); Mean Platelet Volume 9.5 fL (8.0-11.0); Platelet Count 350 x1000/uL (130-400); RBC 3.96 m/cumm (4.00-5.20); RBC Distribution Width 14.5 % (11.7-14.6); White Blood Cell Count 10.25 k/cumm (4.4-10.8)
[2019-06-29 12:49] LABS: INR 1.1 (0.9-1.1)
[2019-06-29 13:55] LABS: ALT 10 U/L (14-59); AST 13 U/L (15-37); Albumin 3.3 g/dL (3.4-5.0); Alkaline Phosphatase 71 U/L (46-116); Anion Gap 11.5 mmol/L (3-11); BUN 28 mg/dL (7-18); Bilirubin, Total 0.4 mg/dL (0.2-1.0); CO2 25.5 mmol/L (21.0-32.0); CREATININE 1.95 mg/dL (0.55-1.02); Calcium 8.6 mg/dL (8.5-10.1); Chloride 100 mmol/L (98-107); Estimated GFR 25.36 (mL/min/1.73m2); Glucose 138 mg/dL (74-106); Potassium 3.7 mmol/L (3.5-5.1); Sodium 137 mmol/L (136-145); Total Protein 6.9 g/dL (6.4-8.2)
== END 2019-06-29 11:03 ==
PROVIDERS: PCP Internal Medicine; Visit Provider Surgery
DX: D64.9 Anemia, unspecified (principal); E03.9 Hypothyroidism, unspecified; E46 Unspecified protein-calorie malnutrition; I15.0 Renovascular hypertension; I42.9 Cardiomyopathy, unspecified; I50.23 Acute on chronic systolic (congestive) heart failure; I70.1 Atherosclerosis of renal artery; K21.9 Gastro-esophageal reflux disease without esophagitis; N18.4 Chronic kidney disease, stage 4 (severe); Z01.818 Encounter for other preprocedural examination; I10 Essential (primary) hypertension; K74.60 Unspecified cirrhosis of liver; R13.10 Dysphagia, unspecified
CPT/HCPCS: 36415; 80053; 85027; 85610

== ENCOUNTER 2019-07-04 08:21 | Day surgery (SDC) | payer MEDICARE, BC, SELFPAY ==
--- NOTE | 2019-07-04 08:04 | W.PM.HP.N ---
Date of service: 07/04/19 Time of Service: 10:42 Assessment and Plan Assessment and plan (1) Cervical spondylosis: Status: Acute (2) Cirrhosis: Status: Acute (3) Essential hypertension: Status: Acute (4) Osteopenia: Status: Acute (5) Gastro-esophageal reflux disease without esophagitis: Status: Chronic (6) CKD (chronic kidney disease) stage 4, GFR 15-29 ml/min: Status: Chronic (7) Cardiomyopathy: Status: Acute (8) Pre-transplant evaluation for CKD (chronic kidney disease): Status: Acute Assessment and plan: Informed consent is obtained for the procedural (explained in simple layman's terms that the pt and/or family could understand) explaining risks vs benefits and alternatives to the procedure and consequences if we do not do the procedure and need/rational for the procedure. Risks include but are not limited to: bleeding, infection, perforation of esophagus, stomach, colon, small intestines, bronchus or trachea, or PTX. This would necessitate emergency surgery to repair the damage w/ possible ostomy; and other associated complications w/ the required surgery. Also complications of anesthesia including aspiration, AZ/CVA/. pt is high risk for anethesia from cardio-pulm standpoint. recent echo shows EF 59% hgb 11.3 pt is NOT smoking currently pt did NOT take BP meds this am completed prep (9) Anemia: Status: Chronic Qualifiers: Anemia type: due to chronic kidney disease Chronic kidney disease stage: stage 3 (moderate) Qualified Code(s): N18.3 - Chronic kidney disease, stage 3 (moderate); D63.1 - Anemia in chronic kidney disease (10) Renovascular hypertension: Status: Chronic (11) High blood cholesterol: Status: Chronic (12) Renal artery stenosis: Status: Chronic (13) Abdominal aortic aneurysm (AAA) without rupture: Status: Chronic History of Present Illness Consults Consult date: 07/04/19 Narrative: pt is here today for CE for screening for poss kidney transplant. her last CE was 8 yrs ago and nl per pt. denies changes in bowels/rectal bleeding/wt loss denies: cp or sob. productive cough. no fevre/chills. no abdom pain complete prep. reviewed echo; valve and chamber size or same. EF remarkably improved. pt is still high risk for CE from cardiac standpoint. Review of Systems All systems reviewed & are unremarkable except as noted in HPI and below [facility] Medical History Abdominal aortic aneurysm (AAA) without rupture (Chronic 01/04/16) 02/26/13-CT scan infra-renal, 3.1 cm, 03/16/2018 [facility] [place] Vascular Dr Moody. 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 EGD W/ BS (Resolved 08/12/12) DR CANCHOLA Hysterectomy, Laproscopic (Chronic ~01/1984) Status post surgery (Acute 09/07/18) right external iliac to right renal artery bypass with reversed rifht greater saphenous vein, [facility] Family History Grandmother Essential hypertension Mother , age 68 of ovarian cancer Ovarian cancer Father , age 60 of emphysema Emphysema lung Smoker Sister Essential hypertension Brother , age 34 of suicide Suicide Son No problems noted. Daughter No problems noted. 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, 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 Pets and animals: Yes Current gender identity: female What is your relationship status?: How often do you talk on the phone with friends or family?: three or more times per week How often do you get together with friends or relatives?: once per week Panel score (0-1 are the most socially isolated patients): 2 What type of physical activity do you participate in: none Special yanira needs: No Agree to transfusion: Yes Seatbelt use: always Drive intox or ride w/intox company truck 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 She felt her health was under control until surgery at [facility]. Surprised to find herself so debilitated. Meds Home Medications and Allergies Home Medications Medication Instructions Recorded Confirmed Type aspirin [Aspir-81] 81 mg PO DAILY tab-cap 04/19/13 07/04/19 History atorvastatin 20 mg tablet 20 mg PO QHS 10/08/18 07/04/19 History clonidine HCl 0.1 mg tablet 0.1 mg PO PRN tab 10/08/18 07/04/19 History carvedilol 12.5 mg tablet 12.5 mg PO BID 01/24/19 07/04/19 History hydralazine 25 mg tablet 25 mg PO TID 01/24/19 07/04/19 History isosorbide dinitrate 20 mg tablet 20 mg PO TID 01/24/19 07/04/19 History levothyroxine 75 mcg capsule 75 mcg PO DAILY 01/24/19 07/04/19 History famotidine 20 mg tablet 20 mg PO BID #180 tab 02/01/19 07/04/19 Rx acetaminophen 500 mg PO PRN PRN 02/16/19 06/29/19 History gabapentin 100 mg PO HS 02/16/19 07/04/19 History amlodipine 5 mg tablet 5 mg PO DAILY #90 tab 03/17/19 07/04/19 Rx furosemide 20 mg tablet 20 mg PO BID #180 tab 04/13/19 07/04/19 Rx varicella-zoster gE-AS01B (PF) 50 0.5 ml IM ONCE #1 each 05/24/19 06/29/19 Rx mcg/0.5 mL IM susp, kit bisacodyl 5 mg tablet,delayed 5 mg PO ONCE #4 tab 06/16/19 07/04/19 Rx release polyethylene glycol 3350 17 238 g PO ONCE #238 gm 06/16/19 07/04/19 Rx gram/dose oral powder Allergies Allergy/AdvReac Type Severity Reaction Status Date / Time No Known Allergies Allergy Verified 07/04/19 08:47 Exam Chest Chest: normal inspection of the chest Resp Effort & Inspection: normal respiratory effort and able to speak in complete sentences Auscultation: clear to auscultation bilaterally Cardio Rate: regular rate Rhythm: regular rhythm GI Inspection: normal to inspection Palpation: soft and nontender
[2019-07-04 08:40] VITALS: BP 177/82; PULSE 76; RESP 16; TEMP 36.3; O2SAT 94
[2019-07-04] MEDS: Lactated Ringers 1,000 ML 80 ML IV (09:01)
--- NOTE | 2019-07-04 11:05 | BOWEL_PTH ---
PATIENT: Charlene Harmon LOC: [facility] U#:[id number] AGE/SX: 68/F ROOM: RE07/04/[address]: Ilana Calero : 1950 BED: DIS: 07/04/2019 SPEC #: [id number] RECD: 07/04/19 12:45 STATUS: MARRY REQ #: [id number] EDUARD: 07/04/19 11:[address]: Ilana Calero DEPT: Surgical Specimen RECD BY: Harika Cuevas ENTERED: 07/04/19 12:45 SP TYPE: Bowel OTHR DR: Sanjuanita Lee MD Tissues: 1 - BIOPSY BOWEL Procedures: GROSS AND MICRO LEVEL 4 Comments: [id number]
--- NOTE | 2019-07-04 11:31 | W.PM.DSUDISC ---
Discharge Plan Disposition Patient Disposition: HOME Discharge Details Reason For Visit: PRE TRANSPLANT Attending Provider: Ilana Calero Primary Care Provider: Sanjuanita Lee Home Meds and New Rx's Prescriptions: Continued furosemide 20 mg tablet 20 mg PO BID Qty: 180 RF: 0 Shingrix (PF) 50 mcg/0.5 mL suspension for reconstitution 0.5 ml IM ONCE Qty: 1 RF: 1 famotidine 20 mg tablet 20 mg PO BID Qty: 180 RF: 3 aspirin [Aspir-81] 81 MG tablet,delayed release (DR/EC) 81 mg PO DAILY RF: 0 clonidine HCl 0.1 mg tablet 0.1 mg PO PRN RF: 0 atorvastatin 20 mg tablet 20 mg PO QHS RF: 0 carvedilol 12.5 mg tablet 12.5 mg PO BID RF: 0 hydralazine 25 mg tablet 25 mg PO TID RF: 0 isosorbide dinitrate 20 mg tablet 20 mg PO TID RF: 0 levothyroxine 75 mcg capsule 75 mcg PO DAILY RF: 0 amlodipine 5 mg tablet 5 mg PO DAILY Qty: 90 RF: 0 acetaminophen 500 mg Tablet 500 mg PO PRN PRNRF: 0 gabapentin 100 mg Capsule 100 mg PO HS RF: 0 Discontinued polyethylene glycol 3350 17 gram/dose powder 238 g PO ONCE Qty: 238 RF: 0 bisacodyl [Dulcolax (bisacodyl)] 5 mg tablet,delayed release (DR/EC) 5 mg PO ONCE Qty: 4 RF: 0 Discharge Orders Discharge Orders: Discharge Order (Routine); Ordered 07/04/19 Ordered By: Ilana Calero DS: Diagnosis Discharge Diagnosis (1) Cervical spondylosis: Status: Acute (2) Cirrhosis: Status: Acute (3) Essential hypertension: Status: Acute (4) Osteopenia: Status: Acute (5) Gastro-esophageal reflux disease without esophagitis: Status: Chronic (6) CKD (chronic kidney disease) stage 4, GFR 15-29 ml/min: Status: Chronic (7) Cardiomyopathy: Status: Acute (8) Pre-transplant evaluation for CKD (chronic kidney disease): Status: Acute (9) Anemia: Status: Chronic (10) Renovascular hypertension: Status: Chronic (11) High blood cholesterol: Status: Chronic (12) Renal artery stenosis: Status: Chronic (13) Abdominal aortic aneurysm (AAA) without rupture: Status: Chronic
--- NOTE | 2019-07-04 11:35 | W.COLOREPORT ---
Date of service: 07/04/19 Time of Service: 11:35 Colonoscopy Report Date of procedure: 07/04/19 Pre-op diagnosis general: screen pre transplant Post-op diagnosis procedure note: other (diverticulae -sigmoid ) Procedure: CE. bx in cecum Surgeon: Ilana Calero Anesthesia proc note operative: GETA Estimated blood loss (mL): 0 Pathology: other Complications: None Disposition: same day Prep: Miralax/Dulcolax Retraction Time: 10 mins Procedure Description: After informed consent was obtained the patient was taken to the procedure room and placed in a left decubitous position. Monitors were applied and a time out was done. The patients name, date of , procedure, allergies to medications and metal in their body was reviewed. The patient was then sedated. Once sedated and comfortable a rectal exam was done. External exam was normal. Internal exam revealed a normal sphincter tone and no palpable masses. The scope was then introduced and retrofelexed. No internal hemorrhoids were identified. The scope was then advanced to the cecum w/out difficulty. The TI and appendiceal orifice were identified. The prep was adequate. The scope was then slowly retracted over 10 minutes back into the rectum. Polyps were removed at none. minor diveritculae confined to the sigmoid colon was no signs of bleeding or infection. There were no polyps apparent. There is some minor changes in the cecum that could be due to either the prep or some ischemia. Biopsy was taken. All specimen is retrieved and no bleeding is noted. The scope was removed and the patient was woken up and taken back to Same day surgery in stable condition. The patient tolerated the procedure well and there were no immediate complications. Follow up: The patient does not require any further colonoscopies, unless they develop changes in bowel habits or other new gastrointestinal complaints.
[2019-07-04 12:00] VITALS: BP 158/67; PULSE 64; RESP 16; TEMP 35.9; O2SAT 95
== END 2019-07-04 12:20 | disposition home or self-care (01) ==
PROVIDERS: PCP Internal Medicine; Visit Provider Surgery
PROC: 0DJD8ZZ Inspection of Lower Intestinal Tract, Via Natural or Artificial Opening Endoscopic (ICD-10-PCS; CPT 45378; principal; 2019-07-04 09:45)
DX: Z12.11 Encounter for screening for malignant neoplasm of colon (principal); Z01.818 Encounter for other preprocedural examination; N18.6 End stage renal disease; K57.30 Diverticulosis of large intestine without perforation or abscess without bleeding; I10 Essential (primary) hypertension; K21.9 Gastro-esophageal reflux disease without esophagitis
CPT/HCPCS: 45380; 88305; NC

== ENCOUNTER → 2019-11-07 08:53 | Outpatient (BNVA) | payer MEDICARE, BC, SELFPAY | PROVIDERS: PCP Internal Medicine; Referring Provider Internal Medicine; Visit Provider Internal Medicine Cardiovascular Disease | DX: I42.8 Other cardiomyopathies (principal); I12.9 Hypertensive chronic kidney disease with stage 1 through stage 4 chronic kidney disease, or unspecified chronic kidney disease; N18.4 Chronic kidney disease, stage 4 (severe) | CPT/HCPCS: 99213 ==

== ENCOUNTER 2019-11-28 07:51 | Outpatient (CLI) | payer MEDICARE, BC, SELFPAY ==
[2019-11-30 01:26] LABS: SARS-CoV-2 RNA Undetected (Undetected); SARS-CoV-2 Specimen Source Nasopharynx
== END 2019-11-28 08:11 ==
PROVIDERS: PCP Internal Medicine; Visit Provider Internal Medicine
DX: Z11.59 Encounter for screening for other viral diseases (principal)
CPT/HCPCS: U0003

== ENCOUNTER 2020-04-24 13:23 | Emergency (ER) | payer MEDICARE, BC, SELFPAY ==
[2020-04-24] VITALS (50 sets, daily range): BP systolic 129–212; BP diastolic 64–104; PULSE 66–91; RESP 12–26; TEMP 36.6; O2SAT 87–99
--- NOTE | 2020-04-24 13:15 | RT.EKG_ITS ---
APPROVED REPORT Exam: Resting ECG Patient Location: E HR:78 bpm ECG Measurements Heart Rate 78 AXIS ME 131 P 76 QRSd 81 QRS 46 QT 401 T 64 QTc 458 Conclusion Sinus rhythm...normal P axis, V-rate 60- 99 Probable left atrial enlargement...P >50mS, <-0.10mV V1 I have reviewed and interpreted ECG and agree with software generated interpretation.
--- NOTE | 2020-04-24 13:38 | W.ED.GENAD ---
Discharge Plan Disposition Patient Disposition: [facility] Condition: Stable Discharge Details Clinical Impression: Small bowel obstruction, History of abdominal aortic aneurysm (AAA), History of renal artery stenosis, History of cardiomyopathy Primary Care Provider: Sanjuanita Lee ED Provider: Annita Lares Home Meds and New Rx's Prescriptions: No Action Shingrix (PF) 50 mcg/0.5 mL suspension for reconstitution 0.5 ml IM ONCE Qty: 1 RF: 1 gabapentin 100 mg capsule 200 mg PO HS Qty: 180 RF: 3 aspirin [Aspir-81] 81 MG tablet,delayed release (DR/EC) 81 mg PO DAILY RF: 0 clonidine HCl 0.1 mg tablet 0.1 mg PO PRN RF: 0 Hold Instructions: Home Medication placed on hold at Doctor's office carvedilol 12.5 mg tablet 12.5 mg PO BID RF: 0 hydralazine 25 mg tablet 25 mg PO TID RF: 0 isosorbide dinitrate 20 mg tablet 20 mg PO TID RF: 0 levothyroxine 75 mcg capsule 75 mcg PO DAILY RF: 0 furosemide 20 mg tablet 20 mg PO BID Qty: 180 RF: 3 cholestyramine (with sugar) 4 gram powder 4 gm PO BID PRN (Reason: chronic diarrhea) Qty: 1 RF: 11 atorvastatin 20 mg tablet 20 mg PO QHS Qty: 90 RF: 3 cimetidine 400 mg tablet 400 mg PO BID Qty: 180 RF: 3 amlodipine 5 mg tablet 5 mg PO DAILY Qty: 90 RF: 3 acetaminophen 500 mg Tablet 500 mg PO PRN PRNRF: 0 Discharge Data Discharge Date/Time-TO BE ENTERED AT DEPARTURE: 04/24/20 18:30 Medical Decision Making [id number] -- 69 year old woman with a history of AAA, CKD stage IV, hypertension, history of YING not amenable to stenting status post YING bypass in August 2018, nonischemic cardiomyopathy, hypothyroidism presents for upper abdominal pain and vomiting since yesterday. EKG notes a rate of 78, sinus, no acute ST ischemic findings. Patient appears uncomfortable and is holding her upper abdomen. Systolic blood pressure hypertensive. She is afebrile. Her lungs are clear bilaterally and she has some tenderness in her epigastrium. Her abdomen is soft without rigidity or guarding. Main concern would be regarding her AAA. Considering patient's history of chronic kidney disease, limited with imaging with IV contrast. Will obtain a CT chest and abdomen/pelvis and give Pepcid, Zofran and GI cocktail. Also obtain screening labs and give small dose of IV fluids. 1500 -- labs reviewed. White blood cell count 12. Creatinine 2.73, GFR 17, diminished compared to baseline. Troponin, lipase and TSH within normal limits. CT abdomen and pelvis notes a distal small bowel obstruction and increase in size and abdominal aortic aneurysm from 3.9 to 5.4 cm compared to previous imaging December 2018. Patient states she was assessed for her aneurysm last week by [facility] cardiology and was told that it increased in size at that time. Considering patient's complicated cardiac history, will plan for transfer to [facility] for small bowel obstruction. Patient reassessed and she admits to some relief in pain but still complaining of pain. Will give a dose of morphine. 1714 --discussed with [facility] general surgery Dr. Hwang -accepts patient for transfer to the ED. Patient reassessed and she states her nausea and pain is controlled and is declining any further medication at this time. She remains hemodynamically stable. Patient admitted to some return of pain prior to ambulance transfer and was given a dose of morphine and Zofran IV. Medical Records Medical records reviewed: Yes I reviewed the patient's medical records. Imaging Data Radiologic Study: Radiologist's impression: CT CHEST/ABD/PEL WO CLINICAL HISTORY: epigastric and lower abd pain, h/o AAA. TECHNIQUE: Imaging Protocol: Axial computed tomography images with coronal and sagittal reformatted images were created and reviewed CONTRAST MATERIAL: Noncontrast COMPARISON: CT CT CHEST/ABD/PEL WO from 01/07/2019 FINDINGS: CHEST: Tracheobronchial tree: Patent where visualized. Mediastinum and Cristiane: No dominant adenopathy or fluid collection. Pulmonary parenchyma: No consolidation or dominant measurable mass. Moderate emphysematous changes. Mild pulmonary scarring. Pleura: No effusion or pneumothorax. Lymph nodes: Within normal limits. Aorta: Heavily calcified Heart: Normal size. Coronary artery calcifications. Bones: Degenerative disc changes. No evidence of fracture. ABDOMEN: Liver: Normal density. No measurable mass. Gallbladder and biliary tract: No radiodense calculus or dilation. Pancreas: Normal density, no abnormal calcifications or inflammatory process. Spleen: Normal. Kidneys: No radiodense stones or obstructive uropathy. No masses seen. Adrenal glands: No masses seen. Aorta: The aorta is dilated at the level of the diaphragm the 3.7 cm, stable. Beneath the level of the renal arteries, the aorta is dilated to 5.4 cm which has increased when compared with the previous exam where it measured 3.9 cm in maximal dimension. An outpouching is again noted in the left lateral distal aorta. The iliac arteries are heavily calcified but no show no evidence of aneurysm. PELVIS: Bladder: Symmetric distention, no gross wall thickening. Bowel: There is are multiple abnormally dilated loops of small bowel. The colon is decompressed. There a transition point may be present in the distal ileum. There is no pneumatosis or wall thickening. Peritoneal cavity: Small amount of free fluid. No free air. Bones: Mild degenerative changes. Reproductive organs: Status post hysterectomy. IMPRESSION: 1. Findings consistent with distal small-bowel obstruction. 2. Interval increase in for size of infrarenal abdominal aortic aneurysm now measuring 5.4 cm in greatest dimension. Lab Data Lab results reviewed: Yes I reviewed the patient's lab results. ECG Data Attestation: I personally reviewed and interpreted this ECG (s) as follows: Interpretation: Rate of 78, sinus, no acute ST elevation or depression. VA 131. QRS 81. QTc 458. HPI General Mode of arrival: ambulatory. Date/Time Provider Initiated Documentation: 04/24/20 13:24. Limitations to Documentation: no limitations. Information obtained by: patient. HPI Narrative: Pt is a 69 year old woman with a history of AAA, CKD stage IV, hypertension, history of YING not amenable to stenting status post YING bypass in August 2018, nonischemic cardiomyopathy, hypothyroidism presents for upper abdominal pain and vomiting since yesterday. Patient states the pain initially started in her lower abdomen and has now radiated up to her upper abdomen. She states the pain is intermittent and crampy. She states she vomited 4 times which is normally food. She states the pain is currently 7/10. She took Pepto-Bismol this morning without relief. She states she last saw her box machine operator at [facility] last week for assessment of her AAA and she was told that it is slightly increased in size but was not started on any new medications. Patient states her last bowel movement was today and within normal limits. She denies any fever, chest pain, shortness of breath, recent known sick contacts or recent known exposure to coronavirus. She states she ate prime rib and bhat pie few days ago. Related Data Home Medications Medication Instructions Recorded Confirmed aspirin [Aspir-81] 81 mg PO DAILY tab-cap 04/19/13 04/24/20 clonidine HCl 0.1 mg tablet 0.1 mg PO PRN tab 10/08/18 04/24/20 carvedilol 12.5 mg tablet 12.5 mg PO BID 01/24/19 04/24/20 hydralazine 25 mg tablet 25 mg PO TID 01/24/19 04/24/20 isosorbide dinitrate 20 mg tablet 20 mg PO TID 01/24/19 04/24/20 levothyroxine 75 mcg capsule 75 mcg PO DAILY 01/24/19 04/24/20 acetaminophen 500 mg PO PRN PRN 02/16/19 04/24/20 varicella-zoster glycoE vacc-AS01B 0.5 ml IM ONCE #1 each 05/24/19 04/24/20 adj(PF) 50 mcg/0.5 mL IM susp, kit furosemide 20 mg tablet 20 mg PO BID #180 tab 07/12/19 04/24/20 cholestyramine (with sugar) 4 gram 4 gm PO BID PRN #1 unit 09/20/19 04/24/20 oral powder atorvastatin 20 mg tablet 20 mg PO QHS #90 tab-cap 09/29/19 04/24/20 cimetidine 400 mg tablet 400 mg PO BID #180 tab 10/25/19 04/24/20 amlodipine 5 mg tablet 5 mg PO DAILY #90 tab 12/13/19 04/24/20 gabapentin 100 mg capsule 200 mg PO HS #180 cap 03/27/20 04/24/20 Previous Rx's Medication Instructions Recorded varicella-zoster glycoE vacc-AS01B 0.5 ml IM ONCE #1 each 05/24/19 adj(PF) 50 mcg/0.5 mL IM susp, kit furosemide 20 mg tablet 20 mg PO BID #180 tab 07/12/19 cholestyramine (with sugar) 4 gram 4 gm PO BID PRN #1 unit 09/20/19 oral powder atorvastatin 20 mg tablet 20 mg PO QHS #90 tab-cap 09/29/19 cimetidine 400 mg tablet 400 mg PO BID #180 tab 10/25/19 amlodipine 5 mg tablet 5 mg PO DAILY #90 tab 12/13/19 gabapentin 100 mg capsule 200 mg PO HS #180 cap 03/27/20 Allergies Allergy/AdvReac Type Severity Reaction Status Date / Time No Known Allergies Allergy Verified 04/24/20 13:46 General Stated Complaint: Chest Pain BILLY: 2 Review of Systems All systems reviewed & are unremarkable except as noted in HPI and below Constitutional Constitutional: Reports as per HPI, Denies chills and Denies fever(s) Eyes Eyes: Denies blurry vision ENT Ears, Nose, Mouth, and Throat: Denies dizziness, Denies sore throat and Denies throat swelling Cardiovascular Cardiovascular: Denies chest pain and Denies dyspnea Respiratory Respiratory: Denies cough and Denies dyspnea Gastrointestinal Gastrointestinal: Reports abdominal pain, Denies diarrhea and Reports vomiting Genitourinary Genitourinary: Denies hematuria and Denies dysuria Musculoskeletal Musculoskeletal: Denies back pain and Denies numbness Integumentary/Breasts Skin/Breast: Denies lesions and Denies rash Neurologic Neurologic: Denies dizziness, Denies localized weakness and Denies numbness Allergic/Immunologic Allergic/Immunologic: Denies throat swelling [facility] Medical History (Updated 04/24/20 @ 17:49 by Annita Lares DO) Abdominal aortic aneurysm (AAA) without rupture (01/04/16) 02/26/13-CT scan infra-renal, 3.1 cm, 03/16/[place] [facility] [place]. 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 EGD W/ BS (08/12/12) DR CANCHOLA Hysterectomy, Laproscopic (~01/1984) Status post surgery (09/07/18) right external iliac to right renal artery bypass with reversed rifht greater saphenous vein, [facility] [place] Family History Grandmother Essential hypertension Mother , age 68 of ovarian cancer Ovarian cancer Father , age 60 of emphysema Emphysema lung Smoker Sister Essential hypertension Brother , age 34 of suicide Suicide Son No problems noted. Daughter No problems noted. 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, 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 Pets and animals: Yes Current gender identity: female What is your relationship status?: How often do you talk on the phone with friends or family?: three or more times per week How often do you get together with friends or relatives?: once per week Panel score (0-1 are the most socially isolated patients): 2 What type of physical activity do you participate in: none Special yanira needs: No Agree to transfusion: Yes Seatbelt use: always Drive intox or ride w/intox patrol 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 She felt her health was under control until surgery at [facility] – [place]. Surprised to find herself so debilitated. Exam Const General: cooperative, uncomfortable and no acute distress Orientation: alert, awake and oriented x3 [facility] Head: normal to inspection Face and sinus: normal facial exam Eyes General: appearance normal, both eyes and all related structures Pupils: PERRL EOM: EOM intact bilaterally Neck Neck: normal visual inspection and No submandibular swelling Lymphatic: no lymphadenopathy noted Chest Chest: normal inspection of the chest and no tenderness Resp Effort & Inspection: normal respiratory effort and able to speak in complete sentences Auscultation: clear to auscultation bilaterally Cardio Rate: regular rate Rhythm: regular rhythm GI Inspection: normal to inspection Palpation: soft, not firm, not rigid and nontender Auscultation: normal bowel sounds Skin General skin exam: no rashes or lesions noted Neuro General: patient alert, patient awake and patient oriented x3 Cognition: normal cognition Speech: speech normal Motor: muscle tone normal throughout Sensory Exam: no sensory deficits noted Extrem General: normal to inspection, full ROM, capillary refill normal, no calf tenderness bilaterally and no edema Psych Appearance: grossly normal Mental Status: mental status grossly normal Speech and Movement: speech and movement normal Affect: normal affect Course Vital Signs Vital signs: Vital Signs Temperature 97.9 F 04/24/20 13:34 Pulse 89 04/24/20 13:34 Respiratory Rate 22 04/24/20 13:34 Blood Pressure 210/97 H 04/24/20 13:34 Pulse Oximetry 96 04/24/20 13:34 Temperature 97.9 F 04/24/20 13:34 Pulse 89 04/24/20 13:34 Respiratory Rate 22 04/24/20 13:34 Blood Pressure 210/97 H 04/24/20 13:34 Blood Pressure Position Supine 04/24/20 13:34 Pulse Oximetry 96 04/24/20 13:34 Oxygen Delivery Method Room Air 04/24/20 13:34 Oxygen Flow Rate 0 04/24/20 13:34 Pain Level 8 04/24/20 13:34
[2020-04-24 13:53] LABS: Abs Immature Grans 0.05 10^3/uL (0.0-0.06); Absolute Basophil Count 0.07 10^3/uL (0.0-0.2); Absolute Eosinophil Count 0.02 10^3/uL (0.0-0.7); Absolute Lymphocyte Count 0.72 10^3/uL (1.2-3.4); Basophils % 0.6; Eosinophils % 0.2; HGB 16.9 g/dL (11.2-15.7); Immature Grans % 0.4; MCH 29.4 pg (27.0-33.0); MCHC 33.8 % (32.0-36.0); MPV 9.9 fL (8.0-11.0); Neutrophils % 87.8; Nucleated RBC 0 %; Platelet Count 435 10^3/uL (130-400); RBC 5.75 10^6/uL (3.93-5.22); RDW 13.4 % (11.7-14.6); RDW-SD 43.8 fL; WBC 12.05 10^3/uL (4.4-10.8)
[2020-04-24 13:56] LABS: Absolute Neutrophil Count 10.58 10^3/uL (1.2-6.7)
[2020-04-24 14:22] LABS: ALT 21 U/L (14-59); AST 19 U/L (15-37); Albumin 4.4 g/dL (3.4-5.0); Alkaline Phosphatase 100 U/L (46-116); Anion Gap 14.2 mmol/L (3-11); BUN 31 mg/dL (7-18); Bilirubin, Total 0.7 mg/dL (0.2-1.0); CO2 24.8 mmol/L (21.0-32.0); CREATININE 2.73 mg/dL (0.55-1.02); Calcium 10.6 mg/dL (8.5-10.1); Chloride 99 mmol/L (98-107); Estimated GFR 17.15 (mL/min/1.73m2); Glucose 179 mg/dL (74-106); Lipase 98 U/L (73-393); Magnesium 2.5 mg/dL (1.8-2.4); Potassium 4.3 mmol/L (3.5-5.1); Sodium 138 mmol/L (136-145); Total Protein 9.3 g/dL (6.4-8.2)
[2020-04-24] MEDS: FAMOTIDINE 20 MG/50 ML BAG 200 MG IVPB (14:22)
[2020-04-24 14:23] LABS: TSH (W/Ref FT4) 2.85 uIU/mL (0.36-3.74)
[2020-04-24 14:23] LABS: Troponin I < 0.05 ng/mL (<0.06)
[2020-04-24] MEDS: Normal Saline 250 ML IV (14:23)
[2020-04-24] MEDS: Ondansetron 4 MG/2 ML VIAL IVP ×2 (14:26→18:30)
[2020-04-24 14:35] LABS: Diff Comment RBC Morph Reviewed
--- NOTE | 2020-04-24 14:46 | DI.CT_ITS ---
EXAM: CT CHEST/ABD/PEL WO CLINICAL HISTORY: epigastric and lower abd pain, h/o AAA. TECHNIQUE: Imaging Protocol: Axial computed tomography images with coronal and sagittal reformatted images were created and reviewed CONTRAST MATERIAL: Noncontrast COMPARISON: CT CT CHEST/ABD/PEL WO from 01/07/2019 FINDINGS: CHEST: Tracheobronchial tree: Patent where visualized. Mediastinum and Cristiane: No dominant adenopathy or fluid collection. Pulmonary parenchyma: No consolidation or dominant measurable mass. Moderate emphysematous changes. Mild pulmonary scarring. Pleura: No effusion or pneumothorax. Lymph nodes: Within normal limits. Aorta: Heavily calcified Heart: Normal size. Coronary artery calcifications. Bones: Degenerative disc changes. No evidence of fracture. ABDOMEN: Liver: Normal density. No measurable mass. Gallbladder and biliary tract: No radiodense calculus or dilation. Pancreas: Normal density, no abnormal calcifications or inflammatory process. Spleen: Normal. Kidneys: No radiodense stones or obstructive uropathy. No masses seen. Adrenal glands: No masses seen. Aorta: The aorta is dilated at the level of the diaphragm the 3.7 cm, stable. Beneath the level of t he renal arteries, the aorta is dilated to 5.4 cm which has increased when compared with the previous exam where it measured 3.9 cm in maximal dimension. An outpouching is again noted in the left late ral distal aorta. The iliac arteries are heavily calcified but no show no evidence of aneurysm. PELVIS: Bladder: Symmetric distention, no gross wall thickening. Bowel: There is are multiple abnormally dilated loops of small bowel. The colon is decompressed. Ther e a transition point may be present in the distal ileum. There is no pneumatosis or wall thickening. Peritoneal cavity: Small amount of free fluid. No free air. Bones: Mild degenerative changes. Reproductive organs: Status post hysterectomy. IMPRESSION: 1. Findings consistent with distal small-bowel obstruction. 2. Interval increase in for size of infrarenal abdominal aortic aneurysm now measuring 5.4 cm in gr eatest dimension. RADIATION DOSE DELIVERED: 586.8mGy.cm Total DLP DATA REPOSITORY: All CT scans at this facility are submitted to the National Radiology Data Registry (NRDR) Dose Index Registry (DIR) with the [employer] (A[employer]). RADIATION OPTIMIZATION: All CT scans at this facility use at least one of these dose optimization te chniques: automated exposure control; mA and/or kV adjustment per patient size (includes targeted exa ms where dose is matched to clinical indication); or iterative reconstruction.
[2020-04-24 14:53] LABS: INR 1.1 (0.9-1.1); PTT Activated 22.7 sec (21.0-27.5); Prothrombin Time 10.8 sec (9.3-11.0)
== END 2020-04-24 18:30 | disposition short-term general hospital (02) ==
PROVIDERS: Emergency Provider Physician Assistant; PCP Internal Medicine
DX: K56.699 Other intestinal obstruction unspecified as to partial versus complete obstruction (principal); I70.1 Atherosclerosis of renal artery; I42.8 Other cardiomyopathies; I71.4 Abdominal aortic aneurysm, without rupture; I12.9 Hypertensive chronic kidney disease with stage 1 through stage 4 chronic kidney disease, or unspecified chronic kidney disease; N18.4 Chronic kidney disease, stage 4 (severe)
CPT/HCPCS: 36415; 71250; 80053; 83690; 93005; 96365; 96368; 96375; 96376; 99285; 74176; 83735; 84443; 84484; 85025; 85610; 85730; 93010; J2405

== ENCOUNTER 2020-05-04 11:54 | Emergency (ER) | payer MEDICARE, BC, SELFPAY ==
[2020-05-04] VITALS (54 sets, daily range): BP systolic 111–141; BP diastolic 51–67; PULSE 66–79; RESP 16; TEMP 37; O2SAT 95–99
--- NOTE | 2020-05-04 12:14 | ED.GENADUL_ITS ---
Discharge Plan Disposition Patient Disposition: HOME Condition: Stable Discharge Details Clinical Impression: Acute hypokalemia, Diarrhea Primary Care Provider: Sanjuanita Lee ED Provider: Mandy Bates Home Meds and New Rx's Prescriptions: Continued Shingrix (PF) 50 mcg/0.5 mL suspension for reconstitution 0.5 ml IM ONCE Qty: 1 RF: 1 gabapentin 100 mg capsule 200 mg PO HS Qty: 180 RF: 3 aspirin [Aspir-81] 81 MG tablet,delayed release (DR/EC) 81 mg PO DAILY RF: 0 clonidine HCl 0.1 mg tablet 0.1 mg PO PRN RF: 0 Hold Instructions: Home Medication placed on hold at Doctor's office carvedilol 12.5 mg tablet 12.5 mg PO BID RF: 0 hydralazine 25 mg tablet 25 mg PO TID RF: 0 isosorbide dinitrate 20 mg tablet 20 mg PO TID RF: 0 furosemide 20 mg tablet 20 mg PO BID Qty: 180 RF: 3 cholestyramine (with sugar) 4 gram powder 4 gm PO BID PRN (Reason: chronic diarrhea) Qty: 1 RF: 11 atorvastatin 20 mg tablet 20 mg PO QHS Qty: 90 RF: 3 cimetidine 400 mg tablet 400 mg PO BID Qty: 180 RF: 3 amlodipine 5 mg tablet 5 mg PO DAILY Qty: 90 RF: 3 levothyroxine 75 mcg capsule 75 mcg PO DAILY Qty: 90 RF: 3 acetaminophen 500 mg Tablet 500 mg PO PRN PRNRF: 0 Discharge Instructions Instructions: Hypokalemia (ED), Acute Diarrhea (ED) Additional Instructions: The repeat potassium level on your blood work today was improved after receiving IV potassium and oral potassium. Follow up with primary care provider in 3-5 days. Return to ED sooner if any worsening or concerns. Increase oral fluids. If diarrhea continues over the next 1 to 2 days you may try [id number] Imodium as needed and follow instructions. Continue with a brat diet which is bananas, rice, apples, toast to help counteract the diarrhea. You have been sent home with stool collection kit. As we are not able to have a viable sample here today, please bring a sample to the lab. We will contact you with any positive results and treat you accordingly. Referrals: Sanjuanita Lee MD [Primary Care Provider] - Discharge Data Discharge Date/Time-TO BE ENTERED AT DEPARTURE: 05/04/20 17:56 Medical Decision Making <Valeri Coleman - Last Filed: 05/05/20 16:04> 69-year-old female presents to the ED with chief complaint of diarrhea. Patient was recently discharged from [facility] on Thursday where she had abdominal surgery for small bowel obstruction. She states that she did have an episode of emesis on Thursday night, since then she has had approximately 12-24 episodes of black diarrhea. She does have a midline abdominal surgical scar noted which is well approximated with alex at this time. There is no erythema, swelling or drainage noted from the incision site. She is not complaining of any significant abdominal pain or weakness. She does have a history of some chronic diarrhea was prescribed some antidiarrheal medication back in August. Patient states that this is much worse than her previous chronic diarrhea. Other past medical history includes AAA, stage IV chronic kidney disease, congestive heart failure, anemia, cardiomyopathy, hypertension, hepatitis B. Work-up ordered including CBC, CMP, urinalysis and stool samples including C. difficile. Critical potassium value received from lab potassium of 2.8, medical records reviewed from [facility] she did have labs drawn on May 01, 2020 white blood cell count of 12.4, potassium was 3.9 sodium 134 at that time. Today her white blood cell count is little bit elevated at 15.30, potassium as noted above. Potassium IV piggyback 20 mEq ordered, normal saline going at 250ml/hr. 1308: Patient requesting to take her noon meds which is hydralazine 25 mg and isosorbide dinitrate 20 mg, those medications were ordered for her at this time. 1334: Patient reevaluation she continues to to deny having any abdominal pain at this time, potassium is infusing without difficulty she is also requesting something to eat. I do feel that this is okay due to tolerating PO without difficulty. Will recheck potassium after infusion complete. 1430: Patient up to bedside commode was able to give a stool sample sent to lab by staffing analyst. <REAGAN Rivera - Last Filed: 05/04/20 17:36> Care transition myself from Antonia Coleman NP. Please see her initial note regarding history, presentation and exam. In brief, patient is a pleasant 69-year-old female who has had severe diarrhea x3 days.. Patient was discharged the day prior to the onset [place] [facility] Patient had been admitted for small bowel obstruction underwent surgical intervention for correction. Patient does report that she has frequent diarrhea at baseline but typically not to this degree. Ms. Sterling had noted that patient had leukocytosis with a white count of 15. She was hypokalemic which was corrected here. Patient has been receiving IV fluids. Creatinine is elevated at 1.47 which is baseline for the patient. Urine was heavily contaminated. Patient has had 1 bowel movement since being here. This was sent for C. difficile testing. At this time I assume care, C. difficile testing was pending. Contacted by the lab, they have attempted to run this test 3 times each time yielding a error. Advise repeat sample would be appropriate at this point. I discussed this with the patient. She would like to see if she able to provide another sample prior to being discharged home. Patient remains otherwise asymptomatic, comfortable and hemodynamically stable. Patient attempted to give the medicine a block urine was unable. Her diarrhea sounds greatly diminished since being here and receiving her IV fluids and potassium correction. She continues to be comfortable. She has upcoming appointment with surgery. I did recommend follow-up with primary care next week. Strict return precautions were given. Patient will collect an outpatient stool sample and bring in for C. difficile testing. We will contact her with any positive results. Encouraged water intake. All of her questions and concerns were addressed and she is in agreement with this plan. HPI <Valeri Coleman - Last Filed: 05/05/20 16:04> General Date/Time Provider Initiated Documentation: 05/04/20 11:55 . HPI Narrative: 69-year-old female presents to the ED with chief complaint of diarrhea. Patient was recently discharged from [facility] on Thursday where she had abdominal surgery for small bowel obstruction. She states that she did have an episode of emesis on Thursday night, since then she has had approximately 12-24 episodes of black diarrhea. She does have a midline abdominal surgical scar noted which is well approximated with alex at this time. There is no erythema, swelling or drainage noted from the incision site. She is not complaining of any significant abdominal pain or weakness. She does have a history of some chronic diarrhea was prescribed some antidiarrheal medication back in August. Patient states that this is much worse than her previous chronic diarrhea. Other past medical history includes AAA, stage IV chronic kidney disease, congestive heart failure, anemia, cardiomyopathy, hypertension, hepatitis B. Related Data Home Medications Medication Instructions Recorded Confirmed aspirin [Aspir-81] 81 mg PO DAILY tab-cap 04/19/13 05/04/20 clonidine HCl 0.1 mg tablet 0.1 mg PO PRN tab 10/08/18 05/04/20 carvedilol 12.5 mg tablet 12.5 mg PO BID 01/24/19 05/04/20 hydralazine 25 mg tablet 25 mg PO TID 01/24/19 05/04/20 isosorbide dinitrate 20 mg tablet 20 mg PO TID 01/24/19 05/04/20 acetaminophen 500 mg PO PRN PRN 02/16/19 04/24/20 varicella-zoster glycoE [id number] 0.5 ml IM ONCE #1 each 05/24/19 05/04/20 adj(PF) 50 mcg/0.5 mL IM susp, kit furosemide 20 mg tablet 20 mg PO BID #180 tab 07/12/19 05/04/20 cholestyramine (with sugar) 4 gram 4 gm PO BID PRN #1 unit 09/20/19 05/04/20 oral powder atorvastatin 20 mg tablet 20 mg PO QHS #90 tab-cap 09/29/19 05/04/20 cimetidine 400 mg tablet 400 mg PO BID #180 tab 10/25/19 05/04/20 amlodipine 5 mg tablet 5 mg PO DAILY #90 tab 12/13/19 05/04/20 gabapentin 100 mg capsule 200 mg PO HS #180 cap 03/27/20 05/04/20 levothyroxine 75 mcg capsule 75 mcg PO DAILY #90 cap 04/30/20 05/04/20 Previous Rx's Medication Instructions Recorded varicella-zoster glycoE [id number] 0.5 ml IM ONCE #1 each 05/24/19 adj(PF) 50 mcg/0.5 mL IM susp, kit furosemide 20 mg tablet 20 mg PO BID #180 tab 07/12/19 cholestyramine (with sugar) 4 gram 4 gm PO BID PRN #1 unit 09/20/19 oral powder atorvastatin 20 mg tablet 20 mg PO QHS #90 tab-cap 09/29/19 cimetidine 400 mg tablet 400 mg PO BID #180 tab 10/25/19 amlodipine 5 mg tablet 5 mg PO DAILY #90 tab 12/13/19 gabapentin 100 mg capsule 200 mg PO HS #180 cap 03/27/20 levothyroxine 75 mcg capsule 75 mcg PO DAILY #90 cap 04/30/20 Allergies Allergy/AdvReac Type Severity Reaction Status Date / Time No Known Allergies Allergy Verified 05/04/20 12:06 General Stated Complaint: Nausea/Vomit/Diar BILLY: 3 Review of Systems <Valeri Virginia - Last Filed: 05/05/20 16:04> Narrative: Constitutional: Negative for weight loss, alert and oriented, well groomed, normal body habitus, appears comfortable. HEENT: Denies trauma, headaches, blurry vision, nasal discharge, sore throat, trouble swallowing. Chest: Denies chest pain, palpitations, irregular rhythm, hypertension. Respiratory: Denies Shortness of breath, cough, hemoptysis. GI: Denies abdominal pain, constipation. Nausea vomiting has resolved. Positive diarrhea. : Denies dysuria, hematuria, flank pain, rectal bleeding. Neuro: Denies dizziness, blurry vision, weakness, syncope, headache or facial numbness. Hematologic: Denies easy bruising, intolerance to heat or cold, hair loss. PFSH <Valeri Virginia - Last Filed: 05/05/20 16:04> Medical History Abdominal aortic aneurysm (AAA) without rupture (01/04/16) 02/26/13-CT scan infra-renal, 3.1 cm, [place] [facility] [place]. 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 EGD W/ BS (08/12/12) DR CANCHOLA Hysterectomy, Laproscopic (~03/1984) S/P exploratory laparotomy (~03/2020) 04/24/[place] [facility] with lysis of adhesions Status post surgery (09/07/18) right external iliac to right renal artery bypass with reversed rifht greater saphenous vein, [facility] Family History Grandmother Essential hypertension Mother , age 68 of ovarian cancer Ovarian cancer Father , age 60 of emphysema Emphysema lung Smoker Sister Essential hypertension Brother , age 34 of suicide Suicide Son No problems noted. Daughter No problems noted. Other Abdominal aortic aneurysm (AAA) without rupture Social History Smoking/Tobacco Use Status: Former Tobacco Use Quit Date: 04/27/08 Tobacco: How many years used: 45 Smoking risk assessment performed?: Yes Alcohol Intake: current Alcohol Intake frequency: holidays/special occasions only Alcohol type: wine Drug use: Never Substance use type: does not use Caregiver/Support person: Yes Foster care: No Household members: spouse Housing: house Number of Children: 2 number of grandchildren: 3 Communication Needs: Corrective Lenses Education Level: college Do you need help understanding health information?: Rarely 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, 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 Pets and animals: Yes Current gender identity: female What is your relationship status?: How often do you talk on the phone with friends or family?: three or more times per week How often do you get together with friends or relatives?: once per week Panel score (0-1 are the most socially isolated patients): 2 What type of physical activity do you participate in: none Special yanira needs: No Agree to transfusion: Yes Seatbelt use: always Drive intox or ride w/intox tank wagon 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 She felt her health was under control until surgery at [facility]. Surprised to find herself so debilitated. Exam <Valeri Coleman - Last Filed: 05/05/20 16:04> Narrative Exam Narrative: Constitutional: Alert and oriented x3. Appears stated age. Normal body habitus. Head: Normocephalic, no trauma. Eyes: Pupils PERRLA, Red reflex noted, EOM's intact. Eyelids symmetrical without lesions, discharge, or swelling. ENT: Bilateral TM's WNL, External ear normal to inspection, no mastoid TTP, swelling, or erythema, Nasal turbinates WNL, no nasal discharge. Normal dentition, Posterior pharynx WNL, no exudate. Chest: RRR, Normal S1, S2, distal pulses intact. Resp: Lungs clear to auscultation bilaterally, no wheezes, rales, or rhonchi. Abdomen: Midline surgical incision noted well approximated with alex. No surrounding erythema, drainage or swelling. Abdomen is soft, bowel sounds normoactive all 4 quadrants. Mildly tender to palpation in the right upper quadrant. Musculoskeletal: Normal gait, 5/5 strength to all four extremities. Skin: No suspicious rashes or lesions. Capillary refill less than 2 sec. Neurologic: Cranial nerves II-XII intact. Alert and oriented x 3. DTR's intact. Hematologic/Lymphatic: No ecchymosis, no lymphadenopathy. Course <Valeri Coleman - Last Filed: 05/05/20 16:04> Vital Signs Vital signs: Vital Signs Temperature 37.0 C 05/04/20 12:01 Pulse 73 05/04/20 12:01 Respiratory Rate 16 05/04/20 12:01 Blood Pressure 135/67 05/04/20 12:01 Pulse Oximetry 98 05/04/20 12:01 Temperature 37.0 C 05/04/20 12:01 Temperature Source Temporal Artery Scan 05/04/20 12:01 Pulse 73 05/04/20 12:01 Respiratory Rate 16 05/04/20 12:01 Blood Pressure 135/67 05/04/20 12:01 Blood Pressure Position Sitting 05/04/20 12:01 Pulse Oximetry 98 05/04/20 12:01 Oxygen Delivery Method Room Air 05/04/20 12:01 Oxygen Flow Rate 0 05/04/20 12:01 Pain Level 0 05/04/20 12:01 Lab/Test Results Lab/Test Results: 05/04/20 12:13 Stool Lactoferrin Latex Agglutination - Pending Sign Out <Valeri Coleman - Last Filed: 05/05/20 16:04> Sign Out Data: Sign Out Comment: Pending C-diff results Last updated by Valeri Coleman at 05/04/20 16:05
[2020-05-04 12:15] LABS: Abs Immature Grans 0.25 10^3/uL (0.0-0.06); Absolute Eosinophil Count 0.23 10^3/uL (0.0-0.7); Basophils % 0.5; Eosinophils % 1.5; Immature Grans % 1.6; Lymphocytes % 7.1; MCH 30.4 pg (27.0-33.0); MCHC 34.2 % (32.0-36.0); MPV 10.3 fL (8.0-11.0); Monocytes % 8.6; Neutrophils % 80.7; Nucleated RBC 0 %; Platelet Count 368 10^3/uL (130-400); RBC 4.27 10^6/uL (3.93-5.22); RDW 14.3 % (11.7-14.6); RDW-SD 45.6 fL
[2020-05-04 12:18] LABS: Absolute Basophil Count 0.08 10^3/uL (0.0-0.2); Absolute Lymphocyte Count 1.09 10^3/uL (1.2-3.4); Absolute Monocyte Count 1.32 10^3/uL (0.1-0.8); Absolute Neutrophil Count 12.35 10^3/uL (1.2-6.7)
[2020-05-04 12:28] LABS: ALT 17 U/L (14-59); AST 19 U/L (15-37); Albumin 2.8 g/dL (3.4-5.0); Alkaline Phosphatase 65 U/L (46-116); Anion Gap 11.6 mmol/L (3-11); BUN 11 mg/dL (7-18); Bilirubin, Total 0.5 mg/dL (0.2-1.0); CO2 22.4 mmol/L (21.0-32.0); CREATININE 1.75 mg/dL (0.55-1.02); Calcium 7.8 mg/dL (8.5-10.1); Chloride 102 mmol/L (98-107); Estimated GFR 28.65 (mL/min/1.73m2); Glucose 84 mg/dL (74-106); Magnesium 1.8 mg/dL (1.8-2.4); Sodium 136 mmol/L (136-145); Total Protein 6.5 g/dL (6.4-8.2)
[2020-05-04 12:29] LABS: Potassium 2.8 mmol/L (3.5-5.1)
[2020-05-04] MEDS: Normal Saline 1,000 ML 250 ML IV (12:43)
[2020-05-04] MEDS: POTASSIUM CHLORIDE 20 MEQ/100 ML BAG 50 MEQ IVPB (12:53)
[2020-05-04] MEDS: Isosorbide Dinitrate 10 MG TAB 20 MG PO (13:22)
[2020-05-04] MEDS: hydrALAZINE 25 MG TAB PO (13:22)
[2020-05-04] MEDS: Potassium Chloride 20 MEQ TABCR 40 MEQ PO (14:41)
[2020-05-04 14:50] LABS: Bilirubin Negative (Negative); Blood Negative (Negative); Clarity Sl Cloudy (Clear); Glucose Negative (Negative); Ketones Negative (Negative); Leukocyte Esterase Trace (Negative); Nitrite Negative (Negative); Specific Gravity 1.025 (1.005-1.025); Urobilinogen 0.2 EU/dL (Up TO 0.2); pH 6.5 (5-8)
[2020-05-04 15:01] LABS: Bacteria Moderate HPF (Negative); C & S Indicated? No/Sq. Contamination; Casts Negative LPF (Negative); Crystals Negative HPF (Negative); Epithelial Cells Many HPF (Negative); Mucus Negative (Negative); Other Cells Few Transitional (Negative); WBC 20-50 HPF (0-5)
[2020-05-04 15:38] LABS: Anion Gap 12.3 mmol/L (3-11); BUN 10 mg/dL (7-18); CO2 19.7 mmol/L (21.0-32.0); CREATININE 1.47 mg/dL (0.55-1.02); Calcium 7.2 mg/dL (8.5-10.1); Chloride 104 mmol/L (98-107); Estimated GFR 35.04 (mL/min/1.73m2); Glucose 106 mg/dL (74-106); Sodium 136 mmol/L (136-145)
[2020-05-04 15:43] LABS: Potassium 3.4 mmol/L (3.5-5.1)
--- NOTE | 2020-05-05 14:30 | NUR.NOTE ---
Nursing Note: 1433---had called earlier today looking for Stool testing results[place] [id number]--[facility] notified--still has sendout tests still pending. Pt verbalizes understanding--will call pcp on Thursday or f/u with er if getting worse.
[2020-05-07 14:35] LABS: Campylobacter PCR Negative (Negative); Salmonella PCR Negative (Negative); Shiga Toxin PCR Negative (Negative); Shigella/Enteroinvasive Ecoli Negative (Negative)
== END 2020-05-04 17:56 | disposition home or self-care (01) ==
PROVIDERS: Registered Nurse Emergency; Emergency Provider Physician Assistant; PCP Internal Medicine
DX: E87.6 Hypokalemia (principal); R19.7 Diarrhea, unspecified; I12.9 Hypertensive chronic kidney disease with stage 1 through stage 4 chronic kidney disease, or unspecified chronic kidney disease; N18.4 Chronic kidney disease, stage 4 (severe)
CPT/HCPCS: 36415; 80048; 80053; 87493; 87505; 96361; 96365; 96366; 99284; 81003; 81015; 83630; 83735; 85025; J3480

== ENCOUNTER 2020-05-05 12:12 | Outpatient (REF) | payer MEDICARE, BC, SELFPAY ==
[2020-05-05 14:10] LABS: C Diff PCR Negative (Negative)
== END 2020-05-05 12:32 ==
LOC: LBN 12:12
PROVIDERS: PCP Internal Medicine; Visit Provider Physician Assistant
DX: R19.7 Diarrhea, unspecified (principal)
CPT/HCPCS: 87493

== ENCOUNTER 2020-05-07 15:47 | Outpatient (REF) | payer MEDICARE, BC, SELFPAY ==
[2020-05-07 18:21] LABS: Anion Gap 9.2 mmol/L (3-11); BUN 14 mg/dL (7-18); CO2 23.8 mmol/L (21.0-32.0); Calcium 8.3 mg/dL (8.5-10.1); Chloride 101 mmol/L (98-107); Estimated GFR 31.78 (mL/min/1.73m2); Glucose 103 mg/dL (74-106); Potassium 3.6 mmol/L (3.5-5.1); Sodium 134 mmol/L (136-145)
[2020-05-07 18:28] LABS: Abs Immature Grans 0.21 10^3/uL (0.0-0.06); Absolute Basophil Count 0.07 10^3/uL (0.0-0.2); Basophils % 0.5; Eosinophils % 2.1; HCT 35.6 % (36.0-46.0); Immature Grans % 1.5; Lymphocytes % 10.6; MCH 30.2 pg (27.0-33.0); MCHC 33.7 % (32.0-36.0); MCV 89.7 fL (80-95); MPV 11.2 fL (8.0-11.0); Monocytes % 9.1; Neutrophils % 76.2; Nucleated RBC 0 %; Platelet Count 396 10^3/uL (130-400); RBC 3.97 10^6/uL (3.93-5.22); RDW 15.4 % (11.7-14.6); RDW-SD 49.9 fL; WBC 14.14 10^3/uL (4.4-10.8)
[2020-05-07 18:33] LABS: Absolute Monocyte Count 1.29 10^3/uL (0.1-0.8); Absolute Neutrophil Count 10.77 10^3/uL (1.2-6.7)
== END 2020-05-07 16:07 ==
LOC: LBO 15:47
PROVIDERS: PCP Internal Medicine; Visit Provider Nurse Practitioner Adult Health
DX: I71.4 Abdominal aortic aneurysm, without rupture (principal); E87.6 Hypokalemia; R19.7 Diarrhea, unspecified; D72.829 Elevated white blood cell count, unspecified
CPT/HCPCS: 80048; 85025

== ENCOUNTER 2020-05-12 12:02 | Outpatient (REF) | payer MEDICARE, BC, SELFPAY | END 2020-05-12 12:22 | LOC: NCHCN 12:02 | PROVIDERS: PCP Internal Medicine; Visit Provider Nurse Practitioner Adult Health | DX: R19.7 Diarrhea, unspecified (principal); E87.6 Hypokalemia; D72.829 Elevated white blood cell count, unspecified | CPT/HCPCS: 83993 ==

== ENCOUNTER 2020-06-25 10:49 | Outpatient (REF) | payer MEDICARE, BC, SELFPAY ==
[2020-06-27 20:16] LABS: Calprotectin 25.6 mcg/g
== END 2020-06-25 10:50 | disposition home or self-care (01) ==
LOC: LBN 10:49
PROVIDERS: PCP Internal Medicine; Visit Provider Nurse Practitioner Adult Health
DX: R19.5 Other fecal abnormalities (principal); R19.7 Diarrhea, unspecified
CPT/HCPCS: 83993

== ENCOUNTER → 2020-11-02 09:09 | Outpatient (BNVA) | payer MEDICARE, BC, SELFPAY | PROVIDERS: PCP Internal Medicine; Referring Provider Internal Medicine; Visit Provider Internal Medicine Cardiovascular Disease | DX: I42.8 Other cardiomyopathies (principal) | CPT/HCPCS: 99212; 99213 ==

== ENCOUNTER 2020-11-05 01:34 | Outpatient (CLI) | payer MEDICARE, BC, SELFPAY ==
--- NOTE | 2020-11-05 07:24 | DI.MAMMO_ITS ---
Exam(s) MAMMO SCREENING EXAM: MAMMO SCREENING CLINICAL HISTORY: screening,Z12.39. TECHNIQUE: Bilateral full field digital CC and MLO mammographic images were obtained with 3D tomosyn thesis and utilizing computer aided detection (CAD). COMPARISON: Prior mammograms dating back to 2011, the most recent being October 2018. FINDINGS: The fibroglandular tissue pattern is moderately dense, this decreasing the sensitivity for finding hi dden underlying lesions. There are no new significant radiograph findings in the right breast. Posteriorly in the left breast there is a group of microcalcifications located approximately 6 cm in from the nipple, more evident than on prior studies. Possibly related to a nodule. There is all flynn ging recommended. Other microcalcifications in the left breast are punctate and unchanged from prior studies. There is no significant architectural distortion nor skin thickening-retraction. IMPRESSION: 1. No radiographic evidence of malignancy in the right breast. 2. In the left breast there is a group of microcalcifications located posteriorly which are more evid ent on prior studies, possibly related to a nodule. Additional imaging recommended including spot-co mpression 3D views plus spot magnification 2D views. Also ultrasound. BI-RADS Category 0 - Assessment Incomplete: Need additional imaging evaluation Breast Density - Category C - Heterogeneously dense Breast density Category C or D implies that the patient has dense breast tissue. Dense breast tissue can make it harder to find cancer on a mammogram. Dense breast tissue is also associated with an incr eased risk of breast cancer. This information about the result of the mammogram report was provided to the patient to raise their awareness. Use this report when you speak with the patient about their risks for breast cancer, which includes their family history. At that time, you may recommend additional screening tests (Ultrasoun d or MRI) as these tests may add significant information. A negative radiographic report should not delay biopsy if a dominant or clinically suspicious mass is present. Up to ten percent of cancers are not identified on mammography. A negative report may reinforce clinical impression. Adenosis and dense breasts may obscure an underlying neoplasm. False positive reports average 6 to 10%. Patient will receive a letter notifying them of these results.
== END 2020-11-05 01:54 ==
PROVIDERS: PCP Internal Medicine; Visit Provider Internal Medicine
DX: Z12.31 Encounter for screening mammogram for malignant neoplasm of breast (principal); R92.8 Other abnormal and inconclusive findings on diagnostic imaging of breast; R92.0 Mammographic microcalcification found on diagnostic imaging of breast
CPT/HCPCS: 77063; 77067

== ENCOUNTER 2020-11-19 01:03 | Outpatient (CLI) | payer MEDICARE, BC, SELFPAY ==
--- NOTE | 2020-11-19 | DI.MAMMO_ITS ---
Exam(s) MAMMO SCREEN CALL BACK UNI EXAM: MAMMO SCREEN CALL BACK UNI CLINICAL HISTORY: F/U MAMMO,MICROCALCIFICATIONS,MORE EVIDENT THAN PRIOR,? NODULE. TECHNIQUE: Unilateral 2D spot magnification mammographic images performed with 2D technique and util izing computer aided detection (CAD). COMPARISON: Prior mammograms were reviewed.. This additional imaging was performed due to findings described on the recent mammogram of 11/05/2020. FINDINGS: This additional mammographic imaging reveals microcalcification group posteriorly in the right breast , as seen on the recent screening mammogram. These presently a benign appearance. Recommend six-month follow-up mammogram with spot Mag views be repeated at that time. Complete left breast ultrasound performed today was negative. IMPRESSION: Presently benign-appearing microcalcifications. Appropriate follow-up is repeat left breast mammogram in 6 months. This was discussed by myself with the patient today. Patient was informed of the findings and recommended follow-up prior to leaving the department today. BI-RADS Category 3 - 6 month - Probably Benign Finding: Recommend follow-up mammography in 6 months Breast Density - Category C - Heterogeneously dense Breast density Category C or D implies that the patient has dense breast tissue. Dense breast tissue can make it harder to find cancer on a mammogram. Dense breast tissue is also associated with an incr eased risk of breast cancer. This information about the result of the mammogram report was provided to the patient to raise their awareness. Use this report when you speak with the patient about their risks for breast cancer, which includes their family history. At that time, you may recommend additional screening tests (Ultrasoun d or MRI) as these tests may add significant information. A negative radiographic report should not delay biopsy if a dominant or clinically suspicious mass is present. Up to ten percent of cancers are not identified on mammography. A negative report may reinforce clinical impression. Adenosis and dense breasts may obscure an underlying neoplasm. False positive reports average 6 to 10%. Patient will receive a letter notifying them of these results.
--- NOTE | 2020-11-19 | DI.US_ITS ---
Exam(s) US BREAST LT COMPLETE EXAM: US BREAST LT COMPLETE CLINICAL HISTORY: F/U MAMMO, LT BREAST MICROCALCIFICATION, ? NODULE. TECHNIQUE: Complete ultrasound of the the left breast was performed including all 4 quadrants, the r etroareolar region, and the ipsilateral axilla. COMPARISON: Prior mammograms were reviewed. Today's spot views were also reviewed FINDINGS: Today's ultrasound reveals no evidence of solid or significant cystic lesions in all 4 quadrants nor in the retroareolar region. Benign-appearing lymph node noted in the left axilla. IMPRESSION: There is no nodule on ultrasound to correspond to the posteriorly located microcalcifications in left breast. Appropriate follow-up, as discussed by myself with the patient today, is repeat left breast mammogram with Mag views in 6 months. BI-RADS Category 3 - 6 month - Probably Benign Finding: Recommend follow-up mammography in 6 months Breast Density - Category C - Heterogeneously dense Breast density Category C or D implies that the patient has dense breast tissue. Dense breast tissue can make it harder to find cancer on a mammogram. Dense breast tissue is also associated with an incr eased risk of breast cancer. This information about the result of the mammogram report was provided to the patient to raise their awareness. Use this report when you speak with the patient about their risks for breast cancer, which includes their family history. At that time, you may recommend additional screening tests (Ultrasoun d or MRI) as these tests may add significant information. A negative radiographic report should not delay biopsy if a dominant or clinically suspicious mass is present. Up to ten percent of cancers are not identified on mammography. A negative report may reinforce clinical impression. Adenosis and dense breasts may obscure an underlying neoplasm. False positive reports average 6 to 10%. Patient will receive a letter notifying them of these results.
== END 2020-11-19 01:23 ==
PROVIDERS: PCP Internal Medicine; Visit Provider Internal Medicine
DX: R92.8 Other abnormal and inconclusive findings on diagnostic imaging of breast (principal); R92.0 Mammographic microcalcification found on diagnostic imaging of breast
CPT/HCPCS: 76642; 77063; 77067

== ENCOUNTER 2021-05-10 04:30 | Outpatient (CLI) | payer MEDICARE, BC, SELFPAY ==
[2021-05-10 09:03] LABS: Calculated LDL 105 mg/dL (<100); Cholesterol 163 mg/dL (<200); HDL Cholesterol 37 mg/dL (40-60); TSH 0.23 uIU/mL (0.36-3.74); Triglyceride 108 mg/dL (<150)
== END 2021-05-10 04:31 | disposition home or self-care (01) ==
LOC: LBO 04:30
PROVIDERS: PCP Internal Medicine; Visit Provider Internal Medicine
DX: E78.00 Pure hypercholesterolemia, unspecified (principal)
CPT/HCPCS: 36415; 80061; 84443

== ENCOUNTER 2021-05-22 00:40 | Outpatient (CLI) | payer MEDICARE, BC, SELFPAY ==
--- NOTE | 2021-05-22 07:15 | DI.MAMMO_ITS ---
Exam(s) MAMMO DIAGNOSTIC UNI EXAM: MAMMO DIAGNOSTIC UNI-LEFT CLINICAL HISTORY: repeat mammogram, abnl mammo lt breast, R02.8, 6 mo f/u. TECHNIQUE: Unilateral spot mammographic images were obtained with 3D tomosynthesis technique and uti lizing computer aided detection (CAD). COMPARISON: Prior mammograms were reviewed, the most recent being October 2020.. Prior breast ultrasound October 2020 was also reviewed FINDINGS: Fibroglandular tissue pattern is again noted be moderately dense, this somewhat decreasing the sensit ivity of the mammogram for finding hidden underlying lesions. No new spiculated masses. The microcalcification group located posteriorly in the left breast remain s stable and benign appearance. IMPRESSION: Stable benign-appearing microcalcifications. Appropriate follow-up is to repeat the Mag views at time for next yearly mammogram which is in October 26, earlier if clinically indicated.. The patient was informed of the findings and follow-up recommendations prior to leaving the [facility] t today. BI-RADS Category 3 - 6 month - Probably Benign Finding: Recommend follow-up mammography in 6 months Breast Density - Category C - Heterogeneously dense Breast density Category C or D implies that the patient has dense breast tissue. Dense breast tissue can make it harder to find cancer on a mammogram. Dense breast tissue is also associated with an incr eased risk of breast cancer. This information about the result of the mammogram report was provided to the patient to raise their awareness. Use this report when you speak with the patient about their risks for breast cancer, which includes their family history. At that time, you may recommend additional screening tests (Ultrasoun d or MRI) as these tests may add significant information. A negative radiographic report should not delay biopsy if a dominant or clinically suspicious mass is present. Up to ten percent of cancers are not identified on mammography. A negative report may reinforce clinical impression. Adenosis and dense breasts may obscure an underlying neoplasm. False positive reports average 6 to 10%. Patient will receive a letter notifying them of these results.
== END 2021-05-22 01:00 ==
PROVIDERS: PCP Internal Medicine; Visit Provider Internal Medicine
DX: R92.8 Other abnormal and inconclusive findings on diagnostic imaging of breast (principal); N60.82 Other benign mammary dysplasias of left breast
CPT/HCPCS: 77061; 77065; G0279

== ENCOUNTER 2021-07-29 04:07 | Outpatient (CLI) | payer MEDICARE, BC, SELFPAY ==
[2021-07-29 12:45] LABS: Source Nasal/Nares
[2021-07-29 23:09] LABS: COVID-19 PCR Negative (Negative)
== END 2021-07-29 04:08 | disposition home or self-care (01) ==
LOC: LBO 04:07
PROVIDERS: PCP Internal Medicine; Visit Provider Surgery Vascular Surgery
DX: Z20.822 Contact with and (suspected) exposure to COVID-19 (principal); Z01.818 Encounter for other preprocedural examination
CPT/HCPCS: 87635; U0005

== ENCOUNTER 2021-10-15 00:59 | Outpatient (CLI) | payer MEDICARE, BC, SELFPAY ==
[2021-10-15 09:56] LABS: HCT 24.7 % (36.0-46.0); MCHC 33.2 % (32.0-36.0); MCV 81 fL (80-95); MPV 9.1 fL (8.0-11.0); Platelet Count 621 10^3/uL (130-400); RDW 18.6 % (11.7-14.6); RDW-SD 53.7 fL; WBC 8.69 10^3/uL (4.4-10.8)
[2021-10-15 10:23] LABS: RBC 3.04 10^6/uL (3.93-5.22)
[2021-10-15 10:24] LABS: HGB 8.2 g/dL (11.2-15.7)
[2021-10-15 10:38] LABS: Anion Gap 12.1 mmol/L (3-11); BUN 31 mg/dL (7-18); CO2 23.9 mmol/L (21.0-32.0); Calcium 8.3 mg/dL (8.5-10.1); Chloride 97 mmol/L (98-107); Estimated GFR 11.68 (mL/min/1.73m2); Glucose 133 mg/dL (74-106); Potassium 4.1 mmol/L (3.5-5.1); Sodium 133 mmol/L (136-145)
[2021-10-15 11:10] LABS: CREATININE 3.8 mg/dL (0.55-1.02)
== END 2021-10-15 01:00 | disposition home or self-care (01) ==
LOC: LBO 00:59
PROVIDERS: PCP Internal Medicine; Visit Provider Internal Medicine
DX: N17.9 Acute kidney failure, unspecified (principal); N18.9 Chronic kidney disease, unspecified; Z98.890 Other specified postprocedural states
CPT/HCPCS: 36415; 80048; 85027

== ENCOUNTER 2021-10-18 01:07 | Outpatient (RCR) | payer MEDICARE, BC, SELFPAY ==
[2021-10-18] MEDS: Lactated Ringers 2,000 ML 500 ML IV (09:45)
[2021-10-18] MEDS: Normal Saline Flush 10 ML SYR IVP (14:01)
== END 2021-10-24 23:59 | disposition home or self-care (01) ==
LOC: INF 01:07
PROVIDERS: PCP Internal Medicine; Visit Provider Internal Medicine
DX: N17.9 Acute kidney failure, unspecified (principal)
CPT/HCPCS: 96360; 96361

== ENCOUNTER → 2021-10-29 09:40 | Outpatient (BNVA) | payer MEDICARE, BC, SELFPAY | PROVIDERS: PCP Internal Medicine; Visit Provider Internal Medicine Cardiovascular Disease | DX: I42.9 Cardiomyopathy, unspecified (principal); N18.4 Chronic kidney disease, stage 4 (severe) | CPT/HCPCS: 99213 ==

== ENCOUNTER → 2022-01-07 01:58 | Outpatient (CLI) | payer MEDICARE, BC, SELFPAY ==
--- NOTE | 2022-01-07 | DI.US_ITS ---
Exam(s) US RENAL EXAM: US RENAL CLINICAL HISTORY: ACUTE KIDNEY INJURY, N17.9. TECHNIQUE: Almazan scale, color and spectral Doppler were used. COMPARISON: CT CT CHEST/ABD/PEL WO from 04/24/2020 FINDINGS: Renal size in cm: Right: 10.2 left: 7.3, renal parenchymal thinning. Echogenicity: Increased renal echogenicity relative to the liver consistent with medical renal diseas e. Hydronephrosis: No Cyst or mass: Cyst mid left kidney 1.8 cm. Nephrolithiasis: No No perinephric collection. Bladder:Not well evaluated due to under distension. Prevoid vol:21 Postvoid vol:Not performed IMPRESSION: Bilateral renal parenchymal thinning and atrophy. Increased renal echogenicity consistent with medi lucio renal disease. DATA REPOSITORY:
== END ==
PROVIDERS: PCP Internal Medicine; Visit Provider Internal Medicine
DX: N17.9 Acute kidney failure, unspecified (principal)
CPT/HCPCS: 76770

== ENCOUNTER 2022-01-21 02:42 | Outpatient (RCR) | payer MEDICARE, BC, SELFPAY ==
[2022-01-16] MEDS: Normal Saline Flush 10 ML SYR IVP (12:52)
[2022-01-16] MEDS: IRON SUCROSE COMPLEX 200 MG in Normal Saline 100 ML 440 MG IVPB (12:52)
[2022-01-21] MEDS: Normal Saline Flush 10 ML SYR IVP (11:47)
[2022-01-21] MEDS: IRON SUCROSE COMPLEX 200 MG in Normal Saline 100 ML 440 MG IVPB (11:48)
== END 2022-01-24 23:59 | disposition home or self-care (01) ==
LOC: INF 02:42
PROVIDERS: PCP Internal Medicine; Visit Provider Nurse Practitioner Family
DX: N18.4 Chronic kidney disease, stage 4 (severe) (principal); D63.1 Anemia in chronic kidney disease; D50.9 Iron deficiency anemia, unspecified
CPT/HCPCS: 96365; J1756

== ENCOUNTER 2022-01-28 01:45 | Outpatient (RCR) | payer MEDICARE, BC, SELFPAY ==
[2022-01-28] MEDS: Normal Saline Flush 10 ML SYR IVP (11:18)
[2022-01-28] MEDS: IRON SUCROSE COMPLEX 200 MG in Normal Saline 100 ML 440 MG IVPB (11:25)
== END 2022-02-24 23:59 | disposition home or self-care (01) ==
LOC: INF 01:45
PROVIDERS: PCP Internal Medicine; Visit Provider Nurse Practitioner Family
DX: N18.4 Chronic kidney disease, stage 4 (severe) (principal); D63.1 Anemia in chronic kidney disease; D50.9 Iron deficiency anemia, unspecified
CPT/HCPCS: 96365; J1756

== ENCOUNTER 2022-02-22 19:36 | Inpatient (IN) | payer MEDICARE, BC, SELFPAY ==
[2022-02-22] VITALS (38 sets, daily range): BP systolic 128–183; BP diastolic 58–82; PULSE 67–96; RESP 10–23; TEMP 37.2–38.2; O2SAT 90–98
--- NOTE | 2022-02-22 19:30 | RT.EKG_ITS ---
APPROVED REPORT Exam: Resting ECG Reason for Exam: stroke Patient Location: E HR:85 bpm ECG Measurements Heart Rate 85 AXIS DE 177 P 56 QRSd 91 QRS -7 QT 386 T 28 QTc 460 Conclusion Sinus rhythm...normal P axis, V-rate 60- 99 Probable left atrial enlargement...P >50mS, <-0.10mV V1 sinus rhythm, normal axis, normal intevals, st depressions V3-V6
--- NOTE | 2022-02-22 19:45 | DI.CT_ITS ---
Exam(s) CT HEAD WO EXAM: CT HEAD WO CLINICAL HISTORY: ams, amnesia. TECHNIQUE: Imaging Protocol: Axial computed tomography images with coronal and sagittal reformatted images were created and reviewed COMPARISON: No exams were available for comparison FINDINGS: The examination is limited due to patient motion artifact. Ventricles and Extra axial spaces: Normal in size and morphology for the patient's age. Hemorrhage: None. Cerebral parenchyma: There is an area of decreased attenuation in the right caudate nucleus. Represe nt an old lacunar infarct. Midline shift: None. Brainstem/Cerebellum: Normal. Calvarium: Normal. Visualized Paranasal sinuses/Mastoids: Clear. Soft Tissues: Unremarkable. IMPRESSION: 1. No acute intracranial process. 2. Focus of decreased attenuation in the right caudate nucleus. This may represent an old lacunar in farct. 3. If there is continued clinical concern, an MRI may be obtained for further evaluation. RADIATION DOSE DELIVERED: 604.86mGy.cm Total DLP DATA REPOSITORY: All CT scans at this facility are submitted to the National Radiology Data Registry (NRDR) Dose Index Registry (DIR) with the [employer] (ACR). RADIATION OPTIMIZATION: All CT scans at this facility use at least one of these dose optimization te chniques: automated exposure control; mA and/or kV adjustment per patient size (includes targeted exa ms where dose is matched to clinical indication); or iterative reconstruction.
--- NOTE | 2022-02-22 19:46 | DI.RAD_ITS ---
Exam(s) XR CHEST 1V IN DI DEPT EXAM: XR CHEST 1V IN DI DEPT CLINICAL HISTORY: ams TECHNIQUE: 2D digital imaging was performed of the chest. Images were obtained. PA and lateral v iews were obtained. COMPARISON: CR,XR XR CHEST 2V PA LATERAL from 02/16/2019 FINDINGS: MEDIASTINUM: Normal. HEART: Normal. PULMONARY VASCULATURE: Normal. LUNGS: Clear. PLEURAL SPACE: No pleural effusion or pneumothorax. BONE:Within normal limits for the patient's age. OTHER FINDINGS:There is a stent in place which may be in the descending thoracic aorta. IMPRESSION: No acute pulmonary findings. DATA REPOSITORY: RADIATION DOSE DELIVERED:
--- NOTE | 2022-02-22 19:48 | ED.GENADUL_ITS ---
Discharge Plan Disposition Patient Disposition: STILL A PATIENT Discharge Details Chief Complaint: CVA/TIA Primary Care Provider: Lexus Lawson ED Provider: Fausto Stone Home Meds and New Rx's Prescriptions: No Action clonidine HCl 0.1 mg tablet 0.1 mg PO PRN Qty: 10 2RF Hold Instructions: Home Medication placed on hold at Doctor's office Rx Instructions: only take if BP > 180 trazodone 300 mg tablet 300 mg PO QHS Qty: 90 3RF lidocaine 5 % ointment 1 applic topical QID PRN (Reason: pain) Qty: 30 0RF loperamide [Imodium A-D] 2 mg tablet 2 mg PO QID PRN (Reason: loose stool) Qty: 20 0RF Rx Instructions: acute diarrhea aspirin [Aspir-81] 81 MG tablet,delayed release (DR/EC) 81 mg PO DAILY carvedilol 12.5 mg tablet 12.5 mg PO BID Qty: 180 3RF Rx Instructions: per [facility] d/c 01/21/19 isosorbide dinitrate 20 mg tablet 20 mg PO TID Qty: 300 6RF Rx Instructions: per [facility] d/c 01/21/19 hydralazine 25 mg tablet 25 mg PO TID Qty: 300 7RF Rx Instructions: per [facility] d/c 01/21/19 atorvastatin 20 mg tablet 20 mg PO QHS Qty: 90 3RF furosemide 20 mg tablet 20 mg PO BID Qty: 180 3RF Rx Instructions: Take in AM and at 4PM cimetidine 400 mg tablet 400 mg PO BID Qty: 180 3RF amlodipine 5 mg tablet 5 mg PO DAILY Qty: 90 3RF Rx Instructions: 1 daily gabapentin 300 mg capsule 300 mg PO QHS Qty: 90 3RF acetaminophen 500 mg Tablet 500 mg PO PRN PRN levothyroxine 50 mcg tablet 75 mcg PO DAILY Medical Decision Making 71-year-old female history of CKD, hypertension, abdominal aortic aneurysm status post stenting, presents with altered mental status and amnesia that began around 6 PM this evening, noted that she was unable to recall anything that he did during the day which include where they were and what they ate, patient has had 2 syncopal episodes over the past week from standing position brief in nature, denies headache denies chest pain denies shortness of breath, resting comfortably hemodynamically stable slightly hypertensive, alert to self place and time no cranial nerve deficits no focal motor deficits, does have a slightly hesitant gait without ataxia, appears blissfully unaware of her current condition, concern for CVA versus TIA versus electrolyte abnormality versus dehydration versus intoxication versus less likely traumatic injury versus infectious process such as viral syndrome or UTI low suspicion for meningeal encephalitis given afebrile nontoxic nonmeningeal state. Will obtain stat CT head. Initially was going to move forward with a CTA head and neck however endorses that she had a severe reaction in the past and ended in the ICU after receiving IV contrast. We will obtain labs and imaging including EKG chest x-ray head CT. Disposition pending reassessment of symptoms and results. HPI General Date/Time Provider Initiated Documentation: 02/22/22 19:46 . HPI Narrative: 71-year-old female history of hypertension CKD, abdominal aortic aneurysm status post stenting, presents brought in by for approximately 2 hours of altered mental status, patient unaware of anything that they did today/this evening, content but confused, not complaining of any headache chest pain shortness of breath or any systemic signs of illness. Of note did receive a recent flu vaccination. Has had 1-2 syncopal episodes over the last week from a standing position. Related Data Home Medications Medication Instructions Recorded Confirmed aspirin 81 mg tablet,delayed 81 mg PO DAILY 04/19/13 02/22/22 release (Aspir-) acetaminophen 500 mg tablet 500 mg PO PRN PRN 02/16/19 02/22/22 clonidine HCl 0.1 mg tablet 0.1 mg PO PRN hypertensive crisis 03/06/21 02/22/22 #10 tabs carvedilol 12.5 mg tablet 12.5 mg PO BID #180 tabs 04/17/21 02/22/22 hydralazine 25 mg tablet 25 mg PO TID #300 tabs 04/23/21 02/22/22 isosorbide dinitrate 20 mg tablet 20 mg PO TID #300 tabs 04/23/21 02/22/22 atorvastatin 20 mg tablet 20 mg PO QHS #90 tab-caps 07/23/21 02/22/22 furosemide 20 mg tablet 20 mg PO BID #180 tabs 07/23/21 02/22/22 trazodone 300 mg tablet 300 mg PO QHS sleep #90 tabs 09/03/21 02/22/22 lidocaine 5 % topical ointment 1 applic topical QID PRN pain #30 11/12/21 02/22/22 grams amlodipine 5 mg tablet 5 mg PO DAILY #90 tabs 12/03/21 02/22/22 cimetidine 400 mg tablet 400 mg PO BID #180 tabs 12/03/21 02/22/22 loperamide 2 mg tablet (Imodium 2 mg PO QID PRN loose stool #20 12/20/21 02/22/22 A-D) tabs gabapentin 300 mg capsule 300 mg PO QHS leg pain #90 caps 12/23/21 02/22/22 levothyroxine 50 mcg tablet 75 mcg PO DAILY 02/22/22 02/22/22 Previous Rx's Medication Instructions Recorded clonidine HCl 0.1 mg tablet 0.1 mg PO PRN hypertensive crisis 03/06/21 #10 tabs carvedilol 12.5 mg tablet 12.5 mg PO BID #180 tabs 04/17/21 hydralazine 25 mg tablet 25 mg PO TID #300 tabs 04/23/21 isosorbide dinitrate 20 mg tablet 20 mg PO TID #300 tabs 04/23/21 atorvastatin 20 mg tablet 20 mg PO QHS #90 tab-caps 07/23/21 furosemide 20 mg tablet 20 mg PO BID #180 tabs 07/23/21 trazodone 300 mg tablet 300 mg PO QHS sleep #90 tabs 09/03/21 lidocaine 5 % topical ointment 1 applic topical QID PRN pain #30 11/12/21 grams amlodipine 5 mg tablet 5 mg PO DAILY #90 tabs 12/03/21 cimetidine 400 mg tablet 400 mg PO BID #180 tabs 12/03/21 loperamide 2 mg tablet (Imodium 2 mg PO QID PRN loose stool #20 12/20/21 A-D) tabs gabapentin 300 mg capsule 300 mg PO QHS leg pain #90 caps 12/23/21 Allergies Allergy/AdvReac Type Severity Reaction Status Date / Time Iodinated Contrast Media Allergy Severe Anaphylaxis Unverified 02/22/22 20:00 shellfish derived Allergy Unverified 02/22/22 20:00 General BILLY: 3 Review of Systems Narrative: Review of Systems Constitutional: negative Eyes: negative ENT: negative Cardiovascular: negative Respiratory: negative Gastrointestinal: negative : negative Musculoskeletal: negative Skin: negative Neurologic: AMS, amnesia Psych: negative PFSH All Active Problems Shingles (Acute) Hypertensive kidney disease with CKD stage IV (Acute) 06/25/21 [facility] Nephrology note Middle insomnia (Chronic) CKD (chronic kidney disease) stage 4, GFR 15-29 ml/min (Chronic) G4/A3 Renovascular hypertension (Chronic) 02/19/21 [facility] Nephrology Hypertensive kidney disease with CKD stage IV Renal artery stenosis (Chronic) (R) > (L) (R) YING bypass graft 09/12 Pre-transplant evaluation for CKD (chronic kidney disease) (Acute) Secondary hyperparathyroidism (Chronic) Chronic diarrhea (Acute) Cardiomyopathy (Acute) LVEF 59% on 06/16 Cervical spondylosis (Acute 08/24/07) Cirrhosis (Acute 11/15/13) from acute Hep B in 2012 Leg cramps (Chronic 12/22/17) Osteopenia (Acute 11/18/12) DEXA 10/2012; T -1.2 at hip DEXA 05/02/14; T -2.0 hip Shoulder pain (Acute 08/24/07) Advance directive on file (Acute) Hypothyroidism (Chronic) Gastro-esophageal reflux disease without esophagitis (Chronic) EGD @ [facility] 12/16/18 Anemia (Chronic) Hearing loss (Chronic) ENT 12/21/18 High blood cholesterol (Chronic) Medical History Abdominal aortic aneurysm (AAA) without rupture (01/04/16) repaired 09/202102/26/13-CT scan infra-renal, 3.1 cm, 03/16/2018 [facility] Vascular Dr Moody. 3.7cm 01/04/16- ultrasound 3.2 cm 01/04/16-Abd US 3.2 cm diameter 07/2015 - 3.5 cm rechecked 01/01/18 note 04/18/20 substantial increase in last 6 mos, CTA ordered Acute and chronic respiratory failure with hypoxia Acute kidney injury superimposed on chronic kidney disease Acute on chronic systolic (congestive) heart failure Acute respiratory failure with hypoxia BCC (basal cell carcinoma), face (07/05/20) 05/14/20 right nasal ala- shave biopsy. Basal Cell Ca, moved to hx and BCC to problem list. 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 Basal Cell Ca, moved to hx and BCC to problem list. Surgical History Bilateral salpingectomy with oophorectomy Colonoscopy - MAC (09/27/12) DR CANCHOLA, REPEAT 10 YRS. EGD W/ BS (08/12/12) DR CANCHOLA History of AAA (abdominal aortic aneurysm) repair (~10/01/21) 10/01/21 [facility] Vascular Hysterectomy, Laproscopic (~03/1984) S/P exploratory laparotomy (~03/2020) 04/24/20 [facility] with lysis of adhesions Status post Mohs surgery (07/05/20) right nasal ala for BCC Status post surgery (09/07/18) right external iliac to right renal artery bypass with reversed rifht greater saphenous vein, [facility] Family History Grandmother Essential hypertension Mother , age 68 of ovarian cancer Ovarian cancer Father , age 60 of emphysema Emphysema lung Smoker Sister Essential hypertension Brother , age 34 of suicide Suicide Son No problems noted. Daughter No problems noted. Other Abdominal aortic aneurysm (AAA) without rupture Social History Smoking/Tobacco Use Status: Former Tobacco Use Quit Date: 04/27/08 Tobacco: How many years used: 45 Smoking risk assessment performed?: Yes Alcohol Intake: current Alcohol Intake frequency: holidays/special occasions only Alcohol type: wine Drug use: Never Substance use type: does not use Caregiver/Support person: Yes Foster care: No Household members: spouse Housing: house Number of Children: 2 number of grandchildren: 3 Communication Needs: Corrective Lenses Education Level: college Do you need help understanding health information?: Rarely 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, 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 Pets and animals: Yes Current gender identity: female What is your relationship status?: How often do you talk on the phone with friends or family?: three or more times per week How often do you get together with friends or relatives?: once per week Panel score (0-1 are the most socially isolated patients): 2 What type of physical activity do you participate in: none Special yanira needs: No Agree to transfusion: Yes Seatbelt use: always Drive intox or ride w/intox driver starting gate: No Working smoke detector in home: Yes Fire extinguisher in home: Yes Carbon monox detector in home: Yes Do you feel safe at home: Yes Do you feel safe in your relationship?: Yes Additional Social history: Multiple hospitalizations (6!) in 2019, tasking on both pt and . She felt her health was under control until surgery at [facility]. Surprised to find herself so debilitated. Exam Narrative Exam Narrative: Physical Examination General: alert, awake, cooperative, resting comfortably, no acute distress HEENT: normocephalic, atraumatic; PERRL, EOM intact, conjunctiva normal; no nasal discharge; moist mucous membranes, oral and pharyngeal mucosa normal, tolerating secretions Neck: supple, trachea midline; full ROM Chest: normal to inspection Respiratory: normal respiratory effort, speaking in full sentences, clear to auscultation, no wheezing, rales or rhonchi Cardiac: regular rate, regular rhythm, S1S2 intact, no murmurs rubs or gallops GI: abdomen soft, non-tender, non-distended; no palpable mass or hepatosplenomegaly Skin: no lesions, rashes or trauma appreciated; slightly dry skin Neuro: AAOx3, cranial nerves II through XII intact, 5 out of 5 strength upper and lower extremities, no ataxia however hesitant gait; unable to describe events of today/this evening which include where she was which she did which she ate Extremities: No peripheral edema no signs of trauma Psych: Appropriate mood and affect
[2022-02-22 20:01] LABS: Abs Immature Grans 0.04 10^3/uL (0.0-0.06); Absolute Basophil Count 0.04 10^3/uL (0.0-0.2); Absolute Eosinophil Count 0.34 10^3/uL (0.0-0.7); Absolute Lymphocyte Count 0.15 10^3/uL (1.2-3.4); Absolute Monocyte Count 0.72 10^3/uL (0.1-0.8); Absolute Neutrophil Count 6.92 10^3/uL (1.2-6.7); Basophils % 0.5; Eosinophils % 4.1; HCT 38.5 % (36.0-46.0); HGB 12.7 g/dL (11.2-15.7); Immature Grans % 0.5; Lymphocytes % 1.8; MCH 28.3 pg (27.0-33.0); MCV 86 fL (80-95); MPV 10.4 fL (8.0-11.0); Monocytes % 8.8; Neutrophils % 84.3; Platelet Count 215 10^3/uL (130-400); RBC 4.49 10^6/uL (3.93-5.22); RDW 19.2 % (11.7-14.6); RDW-SD 59.8 fL; WBC 8.21 10^3/uL (4.4-10.8)
[2022-02-22 20:15] LABS: INR 1.1 (0.9-1.1); PTT Activated 25.6 sec (21.0-27.5); Prothrombin Time 10.8 sec (9.3-11.0)
[2022-02-22 20:24] LABS: ALT 14 U/L (14-59); AST 21 U/L (15-37); Albumin 4.1 g/dL (3.4-5.0); Alkaline Phosphatase 87 U/L (46-116); Anion Gap 12.3 mmol/L (3-11); BUN 34 mg/dL (7-18); Bilirubin, Total 0.8 mg/dL (0.2-1.0); CO2 26.7 mmol/L (21.0-32.0); CREATININE 3.1 mg/dL (0.55-1.02); Calcium 8.9 mg/dL (8.5-10.1); Chloride 94 mmol/L (98-107); Creatine Kinase 114 U/L (26-192); ETHANOL BLOOD < 3.0 mg/dL (<10); Glucose 100 mg/dL (74-106); Potassium 3.3 mmol/L (3.5-5.1); Sodium 133 mmol/L (136-145); TSH (W/Ref FT4) 1.84 uIU/mL (0.36-3.74); Total Protein 7.9 g/dL (6.4-8.2); Troponin I < 50 ng/L (<or=60)
--- NOTE | 2022-02-22 20:26 | DI.VRAD_ITS ---
Addendum created by Maverick Felton MD on 02/22/2022 9:08:22 PM EDT: THIS REPORT CONTAINS FINDINGS THAT MAY BE CRITICAL TO PATIENT CARE. The findings were verbally communicated via telephone conference with Dr. Ramos at 9:07 PM EDT on 02/22/2022. The findings were acknowledged and understood. Initial report created on 02/22/2022 8:25:48 PM EDT: PROCEDURE INFORMATION: Exam: CT Head Without Contrast Exam date and time: 02/22/2022 7:58 PM Age: 71 years old Clinical indication: Stroke-like symptoms; Other: AMS, amnesia; Additional info: PT can not have contrast exam, due to past medical complications, cta/ contrast exam will not follow TECHNIQUE: Imaging protocol: Computed tomography of the head without contrast. Radiation optimization: All CT scans at this facility use at least one of these dose optimization techniques: automated exposure control; mA and/or kV adjustment per patient size (includes targeted exams where dose is matched to clinical indication); or iterative reconstruction. Other technique: STROKE PROTOCOL was implemented. COMPARISON: No relevant prior studies available. FINDINGS: Brain: There is no evidence of intracranial hemorrhage. Unremarkable white matter. No mass effect or midline shift. There is a subacute or chronic lacunar infarct of the right caudate nucleus. Cerebral ventricles: The ventricles and sulci are appropriate for the patient's age. Paranasal sinuses: There are no air-fluid levels. Mastoid air cells: The visualized mastoid air cells are well aerated. Bones/joints: No acute fracture. Soft tissues: Unremarkable. IMPRESSION: 1. No acute intracranial findings. 2. Subacute or chronic lacunar infarct of the right caudate nucleus. MRI may be helpful for further characterization if clinically indicated. ASSESSMENT: ASPECTS ([place] Stroke Program Early CT Score) is 9. Dictated and Authenticated by: Maverick Felton MD. Ordering:MANJIT Lambert MD
--- OUTSIDE RECORDS SUMMARY | 2022-02-22 20:51 | XMS_ITS | Encounter Summary ---
:1950 Author Organization [facility] Address [address] [place] [address] Care Team Providers Name Role Phone Manasa Mathur MD Primary Care Provider Encounter Details Date Type Department Care Team Description 01/28/2000 Hospital Encounter [facility], operated by [facility] [address] [facility] [address] [place] [address] [address] [place] [address] (Wo rk) Social History Tobacco Use Types Packs/Day Years Used Date Never Assessed Sex Assigned at Date Recorded Not on file documented as of this encounter Plan of Treatment Not on filedocumented as of this encounter Procedures Procedure Name Priority Date/Time Associated Comments Diagnosis MA MAMMO DIAG BILAT Routine 01/28/2000 10:59 Resu lts for this EDT procedure are i n the results section. CYTOPATHOLOGY Routine 01/28/2000 0:00 EDT Results for this procedure are i n the results section. documented in this encounter Results MA MAMMO DIAG BILAT (01/28/2000 10:59 EDT) Anatomical Region Laterality Modality Other Specimen Impressions [facility] - 03/06/2009 12 :36 EST IMPRESSION: BILATERAL BREASTS - Category 1 Negative, no evidence of malignancy. Nor mal interval follow-up is recommended in 12 months. OVERALL ASSESSMENT - NEGATIVE END OF IMPRESSION Narrative [facility] - 03/06/2009 12 :36 EST ROUTINE Comparison is made to films from 997 (bilateral). Bilateral Breast Findings: The breasts are heterogeneously dense. T his may lower the sensitivity of mammography. No masses, significant c alcifications or other abnormalities are seen. Procedure Note Wanda Maher PT / Mallika Schuler MD - 03/06/2009 ROUTINE Comparison is made to films from 99 (bilateral). Bilateral Breast Findings: The breasts are heterogeneously dense. T his may lower the sensitivity of mammography. No masses, significant c alcifications or other abnormalities are seen. IMPRESSION IMPRESSION: BILATERAL BREASTS - Category 1 Negative, no evidence of malignancy. Nor mal interval follow-up is recommended in 12 months. OVERALL ASSESSMENT - NEGATIVE END OF IMPRESSION Performing Organization Address City/State/ZIP Code Phon e Number [facility] [address] [facility] [address] [place] [facility] [address] [place], [place] [address] CYTOPATHOLOGY (01/28/2000 0:00 EDT) Pathology Report: CYTOPATHOLOGY REPORT [facility] Reports generated via electronic interface contain ashleigh ginal data; however they are lacking the format of the original re port. Caution should be taken when reading/interpreting unfo rmatted reports. Name: ? CHARLENE HARMON ? Accession #: ? [id number] : ? 1950 (Age: 49) ??F ?Collect Date: ? 06/1999 Location: ? [facility] ? Receive Date : ? 01/29/2000 Provider: ?SUSAN CHEN MD Copy to: ? Specimen/Source: ?ThinPrep Pap Test, Vagina Last Menstrual Period: ? Hormonal/Contraceptive Status: ? Premarin Previous Gynecologic Pathology: ? ASC-US: Treatment History: ? JEFFERSON Other: ? Additional clinical information: AIS in 1982 ? SPECIMEN ADEQUACY ? Satisfactory for evaluation. GENERAL CATEGORIZATION ? Benign Cellular Changes DESCRIPTIVE DIAGNOSIS ? Fungal organisms pres ent morphologically consistent with Muriel species. ? Document reviewed and electronically signed by: ? BONY Jerez(ASCP) ? Report Date: ??02/03/2000 10:52 End of Report Specimen Performing Organization Address City/State/ZIP Code Phon e Number [facility] [address] [place] [address] [facility] [address] [place] [address] documented in this encounter Visit Diagnoses Not on filedocumented in this encounter Care Teams Road Conductor Relationship Specialty Start Date End Date Manasa Mathur MD PCP - General 03/06/15 [address] [place], [place] [id number] documented as of this encounter
--- OUTSIDE RECORDS SUMMARY | 2022-02-22 20:51 | XMS_ITS | Encounter Summary ---
:1950 Author Organization [facility] Address [address] [place] [address] Care Team Providers Name Role Phone Manasa Mathur MD Primary Care Provider Encounter Details Date Type Department Care Team Description 06/29/2019 Lab Requisition [facility] Sanjuanita Lee Enc ounter for other Pathology & MD general examination Laboratory Medicine [address] [place] [address] Social History Tobacco Use Types Packs/Day Years Used Date Never Assessed Sex Assigned at Date Recorded Not on file documented as of this encounter Plan of Treatment Not on filedocumented as of this encounter Procedures Procedure Name Priority Date/Time Associated Diagnosis Comme nts PAP TEST Today 06/29/2019 10:15 Encounter for other Resu lts for this EST general examination procedur e are in the results section. HPV DNA DETECTION Today 06/29/2019 10:15 Encounter for other Results for this WITH GENOTYPING, EST general examination proc edure are in PCR, THINPREP the results section. documented in this encounter Results HPV DNA DETECTION WITH GENOTYPING, PCR, THINPREP (06/29/2019 10:15 EST) Specimen Source vaginal [facility] HPV Risk Type 16, Negative Negative [facility] PCR LABORATORIES HPV High Risk Negative Negative [facility] Type 18, PcR LABORATORIES HPV Other High Negative Negative [facility] Risk Types, PCR Comment: LABORATORIES The following Other High Risk HPV types were not detec ti: 31, 33, 35, 39, 45, 51, 52, 56, 58, 59, 66, and 68 Test Performed by: [facility] [address] [place] [address] Shellfish Shucker: Prashant Hilario M.D. Ph.D.; CLIA# [id number] Specimen Pap Test - Entire vagina (body structure ) Performing Organization Address City/[facility]/ZIP Code Phon e Number [facility] [address] [place] [address] PAP TEST (06/29/2019 10:15 EST) Specimens A. Cervix and/or [facility] MEDICAL Endocervix, , [facility] ThinPrep Imaging LABORATORY System with Manual SERVICES Evaluation Specimen Adequacy Satisfactory for Evaluation - transformation zone component present [facility] Scant due to excessive inflammation [facility] SERVICES General Negative for [facility] intraepithelial CENTER lesion or malignancy LABORATORY SERVICES Attestation By the signature below, the attending physician certifies that they have personally conducted a gross and/or microscopic [facility] Electronically examination of the described specimens and rendered or confirmed the above diagnosis. CENTER signed by REANNA Jean on 2019 SERVICES at 1401 Clinical History NONE [facility] SERVICES HPV The results for the HPV with Genotyping, PCR, ThinPrep are Negative for the HPV Risk Type 16, PCR, Negative for the HPV High Risk Type 18, PcR, and Negative for the HPV Other High Risk Types, PCR. Testi [facility] ng was performed on specimen [id number] and was resulted on 07/08/2019 1839 EDT by OPAL CHAUDHRY [facility] RESULTS IN. [facility] Scanned Images [facility] Specimen Pap Test - Entire vagina (body structure ) Performing Organization Address City/[facility]/ZIP Code Phon e Number [facility] [address] [place] [address] SERVICES documented in this encounter Visit Diagnoses Diagnosis Encounter for other general examination documented in this encounter Care Teams Rod Drawer Relationship Specialty Start Date End Date Manasa Mathur MD PCP - General 03/06/15 [address] [place], [place] [address] documented as of this encounter
--- OUTSIDE RECORDS SUMMARY | 2022-02-22 20:51 | XMS_ITS | Encounter Summary ---
:1950 Author Organization [facility] Address [address] [place] [address] Care Team Providers Name Role Phone Manasa Mathur MD Primary Care Provider Encounter Details Date Type Department Care Team Description 05/04/2020 Lab Requisition [facility] Outr Resulting Lab, Pathology & Laboratory Provider [facility] [address] [place] [address] Social History Tobacco Use Types Packs/Day Years Used Date Never Assessed Sex Assigned at Date Recorded Not on file documented as of this encounter Plan of Treatment Not on filedocumented as of this encounter Procedures Procedure Name Priority Date/Time Associated Diagnosis Comme nts FECAL BACTERIAL Routine 05/04/2020 14:25 Results for this PATHOGENS BY PCR EST procedure a re in the results section. documented in this encounter Results FECAL BACTERIAL PATHOGENS BY PCR (05/04/2020 14:25 EST) Pathologist Sig nature Salmonella PCR Negative Negative [facility] SERVICES Shigella/Enteroinvasive Negative Negative [facility]. [facility] LAB CAMPYLOBACTER PCR Negative Negative [facility] ER LABORATORY SERVICES Shiga Toxin PCR Negative Negative [facility]ORY SERVICES Specimen Feces - Specimen from rectum (specimen) Performing Organization Address City/State/ZIP Code Phon e Number [facility] [address] [place] [address] SERVICES documented in this encounter Visit Diagnoses Not on filedocumented in this encounter Care Teams Commercial Carpet Installer Relationship Specialty Start Date End Date Manasa Mathur MD PCP - General 03/06/15 [address] [place] [address] documented as of this encounter
--- OUTSIDE RECORDS SUMMARY | 2022-02-22 20:51 | XMS_ITS | Encounter Summary ---
:1950 Author Organization [facility] Address [address] [place] [address] Care Team Providers Name Role Phone Unavailable Primary Care Provider Unavailable Encounter Details Date Type Department Care Team Description 11/07/2008 Orders Only [facility] Di Mathur MD Laboratory Services - [address] [place] [address] [address] [address] [place] [address] [phone] Social History Tobacco Use Types Packs/Day Years Used Date Never Assessed Sex Assigned at Date Recorded Not on file documented as of this encounter Plan of Treatment Not on filedocumented as of this encounter Procedures Procedure Name Priority Date/Time Associated Comments Diagnosis HPV DETECTION, HIGH Routine 11/07/2008 13:36 Resu lts for this RISK TYPES EDT procedure are i n the results section. CYTOPATHOLOGY Routine 11/07/2008 0:00 Results for this EDT procedure are i n the results section. documented in this encounter Results HUMAN PAPILLOMA VIRUS DNA TEST (11/07/2008 13:36 EDT) Specimen Description Cervix, ThinPrep [facility] vial Result Negative for HPV [facility] types 16, 18, 31, 33, 35, 39, 45, 51, 52, 56, 58, 59, and 68. Report Status Final [facility] 11/17/2008 Specimen Performing Organization Address City/State/ZIP Code Phon e Number [facility] [address] [place] [address] SERVICES [facility] [address] [place] [address] CYTOPATHOLOGY (11/07/2008 0:00 EDT) Pathology Report: CYTOPATHOLOGY REPORT ? [facility] ? LAB Reports generated via electr Illumioic interface contain original data; ? however they are lacking the format of the original report. ? Caution should be taken when reading/interpreting unformatted reports. ? Name: ? CHARLENE HARMON ? Accession #: ? [id number] ? : ? 1950 (Age: 58) ??F ?Collect Date: ? 11/07/2008 ? Location: ? [facility] ? Receive Date: ? 2008 ? Provider: ?ROSA M DO BBERTIN MD ? Copy to: ? Specimen/Source: ? Pap Test, Cervix/Endocervix, ThinPrep Imaging System ? with manual evaluation ? Last Menstrual Period: ? Menstrual/ Status: ? Post Menopausal ? Previous Gynecologic Patholo gy: ? Adenocarcinoma: H/O Ovarian CA ? Treatment History: ? JEFFERSON/BSO: S/P ? Other: ? HPVDX - HPV testing requeste d regardless of diagnosis on current ThinPrep Pap ?? test. ? SPECIMEN ADEQUACY ? Satisfactory for Eval uation ? - assessment of transformati on zone component not applicable ( e.g. atrophy, ? vaginal sample, hysterectomy ) ? GENERAL CATEGORIZATION ? Negative for Intraepi thelial Lesion or Malignancy ? Document reviewed and electr onically signed by: ? Rhea Sifuentes, SCT( ASCP) ? Report Date: ??07/20/ 2009 14:53 ? End of Report ? Specimen Performing Organization Address City/State/ZIP Code Phon e Number [facility] [address] [place] [address] SERVICES [facility] [address] [place] [address] documented in this encounter Visit Diagnoses Not on filedocumented in this encounter
--- OUTSIDE RECORDS SUMMARY | 2022-02-22 20:51 | XMS_ITS | Encounter Summary ---
:1950 Author Organization [facility] Address [address] [place] [address] Care Team Providers Name Role Phone Unavailable Primary Care Provider Unavailable Encounter Details Date Type Department Care Team Description 02/02/2001 - Hospital Encounter [facility] - Janette Gutierrez 02/24/2001 [facility] MD [facility] [address] [facility] [address] [place] [address] [address] [place] [address] (Wo rk) Social History Tobacco Use Types Packs/Day Years Used Date Never Assessed Sex Assigned at Date Recorded Not on file documented as of this encounter Discharge Disposition Disposition Code Departure Means Destination Auto Discharge documented in this encounter Plan of Treatment Not on filedocumented as of this encounter Procedures Procedure Name Priority Date/Time Associated Comments Diagnosis RAD US AV BREAST Routine 02/18/2001 15:25 Results for this UNILAT OR BILAT EDT procedure ar e in the results section. MA RICARDO DIAG UNI Routine 02/18/2001 14:00 Results for this DIGITAL EDT procedure are i n the results section. MA MAMMO DIAG BILAT Routine 02/02/2001 11:54 Resu lts for this DIGITAL EDT procedure are i n the results section. CYTOPATHOLOGY Routine 02/02/2001 0:00 Results for this EDT procedure are i n the results section. documented in this encounter Results RAD US AV BREAST UNILAT OR BILAT (02/18/2001 15:25 EDT) Anatomical Region Laterality Modality Other Specimen Narrative [facility] - 03/16/2009 3: 00 EST ULTRASOUND RT BREAST ??AFTER AV'S TODAY DENSITY 10MM PT HAS [address] AT [facility] Procedure Note Juan Callejas MD - 03/16/2009 ULTRASOUND RT BREAST AFTER AV'S TODAY DENSITY 10MM PT HAS [address] AT [facility] Performing Organization Address City/State/ZIP Code Phon e Number [facility] [address] [facility] [phone] [facility] [address] [place], [place] [address] MA RICARDO DIAG UNI DIGITAL (02/18/2001 14:00 EDT) Anatomical Region Laterality Modality Other Specimen Impressions [facility] - 03/16/2009 3: 00 EST IMPRESSION: RIGHT BREAST - CATEGORY 2 Oval mass measuring 12 mm at 5 o'clock. Benign cyst(s) on ultrasound, no evidence of malignancy. Normal interv al follow-up is recommended in 12 months. Results and recommendations for follow-u p were discussed with the patient by the technologist at the time of the exam. OVERALL ASSESSMENT - BENIGN END OF IMPRESSION Narrative [facility] - 03/16/2009 3: 00 EST AV RT BREAST PRIOR IMAGES 02-02 DIGITAL ULTRASOUND SCHED 230 FOCAL ASYMMETRIC DENSITY 10MM Comparison is made to films from . Right Breast Findings (full field digita ladditional views and ultrasound projections): The breast is heterogeneously dense. Thi s may lower the sensitivity of mammography. An oval but partially obscu red nodule is present measuring 12 mm at 5 o'clock. Ultrasound of the entire lower breast wa s accomplished and demonstrates an ovoid 9 mm simple cyst a t 5:30 oclock, 3 cm out from the nipple, at the site of the mammograp hic mass. A couple of smaller (5 mm) cysts are located just adjacent. No suspicious solid lesions are identified. Procedure Note Juan Callejas MD - 03/16/2009 AV RT BREAST PRIOR IMAGES 02-02 DIGITAL ULTRASOUND SCHED 230 FOCAL ASYMMETRIC DENSITY 10MM Comparison is made to films from . Right Breast Findings (full field digita ladditional views and ultrasound projections): The breast is heterogeneously dense. Thi s may lower the sensitivity of mammography. An oval but partially obscu red nodule is present measuring 12 mm at 5 o'clock. Ultrasound of the entire lower breast wa s accomplished and demonstrates an ovoid 9 mm simple cyst a t 5:30 oclock, 3 cm out from the nipple, at the site of the mammograp hic mass. A couple of smaller (5 mm) cysts are located just adjacent. No suspicious solid lesions are identified. IMPRESSION IMPRESSION: RIGHT BREAST - CATEGORY 2 Oval mass measuring 12 mm at 5 o'clock. Benign cyst(s) on ultrasound, no evidence of malignancy. Normal interv al follow-up is recommended in 12 months. Results and recommendations for follow-u p were discussed with the patient by the technologist at the time of the exam. OVERALL ASSESSMENT - BENIGN END OF IMPRESSION Performing Organization Address City/State/ZIP Code Phon e Number [facility] [address] [facility] [address] [facility] [address] [place], [place] [address] MA MAMMO DIAG BILAT DIGITAL (02/02/2001 11:54 EDT) Anatomical Region Laterality Modality Other Specimen Impressions [facility] - 03/07/2009 0: 38 EST IMPRESSION: LEFT BREAST - CATEGORY 1 Negative, no evidence of malignancy. Nor mal interval follow-up is recommended in 12 months. RIGHT BREAST - CATEGORY 0 Focal asymmetric density measuring 10 mm . Spot compression and ultrasound are recommended at this time in the craniocaudal, MLO and mediolateral projections. OVERALL ASSESSMENT - INCOMPLETE: NEED AD DITIONAL IMAGING EVALUATION END OF IMPRESSION Narrative [facility] - 03/07/2009 0: 38 EST ROUTINE ?? HX CERIVAL CARCINOMA IN SITU ?? [PCP MARLA JIMÉNEZ, REGeorgi GUTIERREZ] Comparison is made to films from and 06-05-1998. Left Breast Findings (full field digital routine views projection): The breast is heterogeneously dense. Thi s may lower the sensitivity of mammography. No masses, significant calc ifications or other abnormalities are seen. Right Breast Findings (full field digita l routine views projection): The breast is heterogeneously dense. Thi s may lower the sensitivity of mammography. A focal asymmetric density is present in the inferior aspect of the breast measuring 10 mm and is seen with certainty only on the MLO view. This may be in the inne r breast on the CC view. Procedure Note Wanda Maher PT / Rhea Crawford MD - 03/07/2009 ROUTINE HX CERIVAL CARCINOMA IN SITU [PC P MARLA WONGIOTT, REQ SUSAN GUTIERREZ] Comparison is made to films from and 06-05-1998. Left Breast Findings (full field digital routine views projection): The breast is heterogeneously dense. Thi s may lower the sensitivity of mammography. No masses, significant calc ifications or other abnormalities are seen. Right Breast Findings (full field digita l routine views projection): The breast is heterogeneously dense. Thi s may lower the sensitivity of mammography. A focal asymmetric density is present in the inferior aspect of the breast measuring 10 mm and is seen with certainty only on the MLO view. This may be in the inne r breast on the CC view. IMPRESSION IMPRESSION: LEFT BREAST - CATEGORY 1 Negative, no evidence of malignancy. Nor mal interval follow-up is recommended in 12 months. RIGHT BREAST - CATEGORY 0 Focal asymmetric density measuring 10 mm . Spot compression and ultrasound are recommended at this time in the craniocaudal, MLO and mediolateral projections. OVERALL ASSESSMENT - INCOMPLETE: NEED AD DITIONAL IMAGING EVALUATION END OF IMPRESSION Performing Organization Address City/State/ZIP Code Phon e Number [facility] [address] [facility] [phone] [facility] [address] [place], [place] [address] CYTOPATHOLOGY (02/02/2001 0:00 EDT) Pathology Report: CYTOPATHOLOGY REPORT [facility] Reports generated via electronic interface contain ashleigh ginal data; however they are lacking the format of the original re port. Caution should be taken when reading/interpreting unfo rmatted reports. Name: ? HARMONPRETTY ? Accession #: ? [id number] : ? 1950 (Age: 50) ??F ?Collect Date: ? 12/2000 Location: ? [facility] ? Receive Date : ? 02/04/2001 Provider: ?SUSAN GUTIERREZ MD Copy to: ? Specimen/Source: ?ThinPrep Pap Test, Vagina Last Menstrual Period: ? Hormonal/Contraceptive Status: ? Premarin Previous Gynecologic Pathology: ? AIS: 1982 ASC-US: 02/02 Treatment History: ? JEFFERSON Other: ? Additional clinical information: [place] [phone]. ? SPECIMEN ADEQUACY ? Satisfactory for evaluation. GENERAL CATEGORIZATION ? Epithelial Cell Abnormality DESCRIPTIVE DIAGNOSIS ? Atypical squamous jeremie ls of undetermined significance (ASCUS), cannot rule out squamous intraepithelial lesion (STANLEY). RECOMMENDATION ? Recommend clinical correlation and further eval uation, as clinically indicated. ? Document reviewed and electronically signed by: ? DIPESH LOWRY MD [facility] ? Report Date: ??02/04/2001 13:20 End of Report Specimen Performing Organization Address City/State/ZIP Code Phon e Number [facility] [address] [place] [address] SERVICES [facility] [address] [place] [address] documented in this encounter Visit Diagnoses Not on filedocumented in this encounter
--- OUTSIDE RECORDS SUMMARY | 2022-02-22 20:51 | XMS_ITS | Encounter Summary ---
:1950 Author Organization [facility] Address [address] [place] [address] Care Team Providers Name Role Phone Unavailable Primary Care Provider Unavailable Encounter Details Date Type Department Care Team Description 02/22/2002 Results Only [facility] Sunday Huizar MD Gynecologic Oncology - [address] [facility], [address] [place] [address] [place], [place] [phone] (Wo rk) Social History Tobacco Use Types Packs/Day Years Used Date Never Assessed Sex Assigned at Date Recorded Not on file documented as of this encounter Plan of Treatment Not on filedocumented as of this encounter Procedures Procedure Name Priority Date/Time Associated Diagnosis Comme nts CYTOPATHOLOGY Routine 02/22/2002 0:00 EST Results for this procedure are i n the results section . documented in this encounter Results CYTOPATHOLOGY (02/22/2002 0:00 EST) Pathology Report: CYTOPATHOLOGY REPORT [facility] Reports generated via electronic interface contain ashleigh ginal data; however they are lacking the format of the original re port. Caution should be taken when reading/interpreting unfo rmatted reports. Name: ? CHARLENE HARMON ? Accession #: ? [id number] : ? 1950 (Age: 51) ??F ?Collect Date: ? 01/26 Location: ? [facility] ? Receive Date : ? 02/22/2002 Provider: ?SUNDAY HUIZAR MD Copy to: ? Specimen/Source: ?ThinPrep Pap Test, Vagina Last Menstrual Period: ? Hormonal/Contraceptive Status: ? Premarin Previous Gynecologic Pathology: ? AIS: 1982 ASC-US: 02/02 Treatment History: ? JEFFERSON/BSO ? SPECIMEN ADEQUACY ? Satisfactory for Evaluation - assessment of transformation zone component not appl icable ( e.g. atrophy, vaginal sample, hysterectomy) GENERAL CATEGORIZATION ? Negative for Intraepithelial Lesion or Malignan cy ? Document reviewed and electronically signed by: ? BONY Thomas(ASCP) ? Report Date: ??02/25/2002 10:07 End of Report Specimen Performing Organization Address City/State/ZIP Code Phon e Number [facility] [address] [place] [address] SERVICES [facility] [address] [place] [address] documented in this encounter Visit Diagnoses Not on filedocumented in this encounter
--- OUTSIDE RECORDS SUMMARY | 2022-02-22 20:51 | XMS_ITS | Encounter Summary ---
:1950 Author Organization [facility] Address [address] [place] [address] Care Team Providers Name Role Phone Manasa Mathur MD Primary Care Provider Encounter Details Date Type Department Care Team Description 03/07/2004 Hospital Encounter [facility] - Albaro Catalan MD Other [address] [address] [place], [place] [phone] (Wo rk) Social History Tobacco Use Types Packs/Day Years Used Date Never Assessed Sex Assigned at Date Recorded Not on file documented as of this encounter Plan of Treatment Not on filedocumented as of this encounter Visit Diagnoses Not on filedocumented in this encounter Care Teams Occupational Therapy Specialist Relationship Specialty Start Date End Date Manasa Mathur MD PCP - General 03/06/15 [address] [place], [place] [address] documented as of this encounter
--- OUTSIDE RECORDS SUMMARY | 2022-02-22 20:51 | XMS_ITS | Encounter Summary ---
:1950 Author Organization [facility] Address [address] [place] [address] Care Team Providers Name Role Phone Unavailable Primary Care Provider Unavailable Encounter Details Date Type Department Care Team Description 01/25/2002 - Hospital Encounter [facility] - Albaro Catalan MD 02/22/2002 [employer] [address] [address] [facility] [phone] [facility] [place] [address] (Wo rk) Social History Tobacco Use Types Packs/Day Years Used Date Never Assessed Sex Assigned at Date Recorded Not on file documented as of this encounter Discharge Disposition Disposition Code Departure Means Destination Auto Discharge documented in this encounter Plan of Treatment Not on filedocumented as of this encounter Procedures Procedure Name Priority Date/Time Associated Comments Diagnosis MA MAMMOGRAPHIC Routine 02/22/2002 11:01 Results for this SCREEN ANDREY EST procedure are i n the results section. documented in this encounter Results MA MAMMOGRAPHIC SCREEN ANDREY (02/22/2002 11:01 EST) Anatomical Region Laterality Modality Other Specimen Impressions [facility] - 01/22/2009 2: 12 EDT IMPRESSION: BILATERAL BREASTS - Category 1 Negative, no evidence of malignancy. Nor mal interval follow-up is recommended in 12 months. OVERALL ASSESSMENT - NEGATIVE END OF IMPRESSION Narrative [facility] - 01/22/2009 2: 12 EDT ROUTINE ??HX RT BR CYST, LT BR B9 BX ??CERIVAL CA ?? [PCP Krish HAWK EQ Comparison is made to films from 999 (bilateral). Bilateral Breast Findings: The breasts are heterogeneously dense. T his may lower the sensitivity of mammography. No significant masses, c alcifications or other abnormalities are seen. Procedure Note Rhea Crawford MD - 01/22/2009 ROUTINE HX RT BR CYST, LT BR B9 BX CERIV AL CA [PCP MARLA JIMÉNEZ R EQ Comparison is made to films from 999 (bilateral). Bilateral Breast Findings: The breasts are heterogeneously dense. T his may lower the sensitivity of mammography. No significant masses, c alcifications or other abnormalities are seen. IMPRESSION IMPRESSION: BILATERAL BREASTS - Category 1 Negative, no evidence of malignancy. Nor mal interval follow-up is recommended in 12 months. OVERALL ASSESSMENT - NEGATIVE END OF IMPRESSION Performing Organization Address City/State/ZIP Code Phon e Number [facility] [address] [facility] [address] [facility] [address] [place], [place] [address] documented in this encounter Visit Diagnoses Not on filedocumented in this encounter
--- OUTSIDE RECORDS SUMMARY | 2022-02-22 20:51 | XMS_ITS | Encounter Summary ---
:1950 Author Organization [facility] Address [address] [place] [address] Care Team Providers Name Role Phone Unavailable Primary Care Provider Unavailable Encounter Details Date Type Department Care Team Description 02/21/1999 - Hospital Encounter [facility] - Janette Gutierrez 02/24/1999 [facility] MD [facility] [id number] [place] [address] [address] [place] [address] (Wo rk) Social History Tobacco [...]
--- OUTSIDE RECORDS SUMMARY | 2022-02-22 20:51 | XMS_ITS | Encounter Summary ---
:1950 Author Organization [facility] Address [address] [place] [address] Care Team Providers Name Role Phone Unavailable Primary Care Provider Unavailable Encounter Details Date Type Department Care Team Description 02/18/2001 Results Only [facility] - Susan Gutierrez Maple conversion MD [address] [facility] [address] [place] [address] [address] [place] [phone] (Wo rk) Social History Tobacco Use Types Packs/Day Years Used Date Never Assessed Sex Assigned at Date Recorded Not on file documented as of this encounter Plan of Treatment Not on filedocumented as of this encounter Procedures Procedure Name Priority Date/Time Associated Diagnosis Comme nts SURGICAL PATHOLOGY Routine 02/18/2001 0:00 EDT Re sults for this procedure are i n the results section. documented in this encounter Results SURGICAL PATHOLOGY (02/18/2001 0:00 EDT) Pathology Report: SURGICAL PATHOLOGY REPORT HA CEDEÑO Reports generated via electronic interface contain ashleigh ginal data; LAB however they are lacking the format of the original re port. Caution should be taken when reading/interpreting unfo rmatted reports. Name: ? CHARLENE HARMON ? Accession #: ? [id number] ? : ? 1950 (Age: 50) ??F ? Collect Date: ? 02/18/2001 ? Location: ? [facility] ? Receive Date: ? 001 ? Provider: SUSAN GUTIERREZ MD Copy to: ? Final Pathologic Diagnosis: ? Vaginal cuff, biopsy: 1. ?Benign vaginal mucosa; no specific pa thologic findings. 2. ?No evidence of dysplasia or malignanc y. ?? Document reviewed and electronically signed by: Afua Hwang MD Report ??Date: 02/22/2001 16:58 By the signature above, the attending physician certif ies that he/she has personally conducted a gross and/or microscopic examin ation of the described specimens and rendered or confirmed the above diagnosi s. Specimen(s) Received: ? Vaginal cuff biopsy Clinical History: ? Premarin; ASCUS ' 98; h/o AIS ' 83; JEFFERSON/BSO; clinical diagnosis code: 180 Gross Description: ? Received in formalin labelled Harmon and #1 vaginal cuff biopsy is a infante-white irregular 0.3 x 0 .3 x 0.3 cm soft tissue fragment. ??The specimen is entirely submitted in one cassette. ??(Diane Begum/anita styles End of Report Specimen Performing Organization Address City/State/ZIP Code Phon e Number [facility] [address] [place] [address] SERVICES [facility] [address] [place] [address] documented in this encounter Visit Diagnoses Not on filedocumented in this encounter
--- OUTSIDE RECORDS SUMMARY | 2022-02-22 20:51 | XMS_ITS | Clinical Summary ---
:1950 Author Organization [facility] Address [address] [place] [address] Care Team Providers Name Role Phone Manasa Mathur MD Primary Care Provider Social History Tobacco Use Types Packs/Day Years Used Date Never Assessed Sex Assigned at Date Recorded Not on file Plan of Treatment Health Maintenance Due Date Last Done Comments Fall Risk Screening 2013 Insurance Payer Benefit Plan / Subscriber ID Effective Dates Phone Addre ss Type Group MEDICARE MEDICARE A/B [id number] 2013-Present [id number] [place] [id number] Care Teams Program Architect Relationship Specialty Start Date End Date Dobbertin, Manasa M, MD PCP - General 03/06/[address] [place], [place] [id number]
--- OUTSIDE RECORDS SUMMARY | 2022-02-22 20:51 | XMS_ITS | Encounter Summary ---
:[address] [facility] Address [address] [place] [address] Care Team Providers Name Role Phone Manasa Mathur MD Primary Care Provider Encounter Details Date Type Department Care Team Description 07/04/2019 Lab Requisition [facility] Ilana Calero for Pathology & M, DO screening for Laboratory Medicine - [address]ant neoplasm of [facility] [address] colon [address] [place] [phone] Social History Tobacco Use Types Packs/Day Years Used Date Never Assessed Sex Assigned at Date Recorded Not on file documented as of this encounter Plan of Treatment Not on filedocumented as of this encounter Procedures Procedure Name Priority Date/Time Associated Diagnosis Comme nts SURGICAL PATHOLOGY Today 07/04/2019 11:05 Encounter for Resu lts for this EDT screening for procedure are in malignant neoplasm the resul ts of colon section. documented in this encounter Results SURGICAL PATHOLOGY (07/04/2019 11:05 EDT) Final Diagnosis A. COLON, CECUM, POLYP, BIOPSY: [facility] Electronically - Colonic mucosa with no significant diagnostic abnorm ality. CENTER signed by Keeley Davis, - No definite polyp identified. LABORATOR Y Tamela Anderson MD on - Deeper sections x3 examined. SERVICES 07/06/2019 at 0829 Clinical History Transplant screening, colonoscopy [facility] Attestation By the signature [facility] Electronica lly below, the attending CENTER signed by Keeley Davis, physician certifies LABORATORY Tamela Anderson MD on that they have 1) SERVICES 07/06/2019 at 0829 personally conducted a gross and/or microscopic examination of the described specimen(s), and/or personally interpreted the results of laboratory testing of the described specimen(s), and 2) personally rendered or confirmed the above diagnosis. Gross Description A. Received in formalin labe lled with proper patient identification (initials F, S) and cecal polyp is a lipscomb-pink tissue (0.2 x 0 2 x 0.1 cm). Submitted in toto in A1. [facility] Tierra Atulclark 07/04/2019 16:24 LABORATO RY SERVICES Scanned Images [facility] Specimen Tissue - Cecum structure (body structure ) Performing Organization Address City/State/ZIP Code Phon e Number [facility] [address] [place] [address] SERVICES documented in this encounter Visit Diagnoses Diagnosis Encounter for screening for malignant ne oplasm of colon Special screening for malignant neoplasm s, colon documented in this encounter Care Teams Security Sales Consultant Relationship Specialty Start Date End Date Manasa Mathur MD PCP - General 03/06/15 [address] [place], [place] [address] documented as of this encounter
--- OUTSIDE RECORDS SUMMARY | 2022-02-22 20:51 | XMS_ITS | Encounter Summary ---
:1950 Author Organization [facility] Address [address] [place] [address] Care Team Providers Name Role Phone Unavailable Primary Care Provider Unavailable Encounter Details Date Type Department Care Team Description 07/13/2006 Results Only [facility] - Manasa Mathur MD Maple conversion [address] [facility] [address] [place] [address] [place], [place] [phone] (Wo rk) Social History Tobacco Use Types Packs/Day Years Used Date Never Assessed Sex Assigned at Date Recorded Not on file documented as of this encounter Plan of Treatment Not on filedocumented as of this encounter Procedures Procedure Name Priority Date/Time Associated Diagnosis Comme nts CYTOPATHOLOGY Routine 07/13/2006 0:00 EDT Results for this procedure are i n the results section . documented in this encounter Results CYTOPATHOLOGY (07/13/2006 0:00 EDT) Pathology Report: CYTOPATHOLOGY REPORT [facility] Reports generated via electronic interface contain ashleigh ginal data; however they are lacking the format of the original re port. Caution should be taken when reading/interpreting unfo rmatted reports. Name: ? CHARLENE HARMON ? Accession #: ? [id number] : ? 1950 (Age: 55) ??F ?Collect Date: ? 06/25 Location: ? [facility] ? Receive Date : ? 07/15/2006 Provider: ?MANASA MATHUR MD Copy to: ? Specimen/Source: ? ThinPrep Pap Test, Vagina, processed on [employer] ThinPrep Imaging System, with manual evaluation Last Menstrual Period: ? Hormonal/Contraceptive Status: ? Premarin Previous Gynecologic Pathology: ? 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 Hysterectomy: Ovarian Ca. Other: ? HPVA - HPV testing requested if ASC-US on the current ThinPrep Pap test. ? SPECIMEN ADEQUACY ? Satisfactory for Evaluation - assessment of transformation zone component not appl icable ( e.g. atrophy, vaginal sample, hysterectomy) GENERAL CATEGORIZATION ? Negative for Intraepithelial Lesion or Malignan cy ? Document reviewed and electronically signed by: ? BONY Aggarwal(ASCP) ? Report Date: ??07/16/2006 10:08 End of Report Specimen Performing Organization Address City/State/ZIP Code Phon e Number [facility] [address] [place] [address] SERVICES [facility] [address] [place] [address] documented in this encounter Visit Diagnoses Not on filedocumented in this encounter
--- OUTSIDE RECORDS SUMMARY | 2022-02-22 20:51 | XMS_ITS | Encounter Summary ---
:1950 Author Organization [facility] Address [address] [place] [address] Care Team Providers Name Role Phone Unavailable Primary Care Provider Unavailable Encounter Details Date Type Department Care Team Description 03/07/2004 Results Only [facility] Sunday Huizar MD Gynecologic Oncology - [address] [facility], [address] [place] [address] [place], [place] [phone] (Wo rk) Social History Tobacco Use Types Packs/Day Years Used Date Never Assessed Sex Assigned at Date Recorded Not on file documented as of this encounter Plan of Treatment Not on filedocumented as of this encounter Procedures Procedure Name Priority Date/Time Associated Diagnosis Comme nts CYTOPATHOLOGY Routine 03/07/2004 0:00 EST Results for this procedure are i n the results section . documented in this encounter Results CYTOPATHOLOGY (03/07/2004 0:00 EST) Pathology Report: CYTOPATHOLOGY REPORT [facility] Reports generated via electronic interface contain ashleigh ginal data; however they are lacking the format of the original re port. Caution should be taken when reading/interpreting unfo rmatted reports. Name: ? CHARLENE HARMON ? Accession #: ? [id number] : ? 1950 (Age: 53) ??F ?Collect Date: ? 02/25 Location: ? [facility] ? Receive Date : ? 03/08/2004 Provider: ?SUNDAY HUIZAR MD Copy to: ?ROSA CORBETT MD ? Specimen/Source: ?ThinPrep Pap Test, Vagina Last Menstrual Period: ? Previous Gynecologic Pathology: ? Adenocarcinoma: In Situ of Cervix ASC-US: 01/25 Treatment History: ? JEFFERSON/BSO: 1982 ? SPECIMEN ADEQUACY ? Satisfactory for Evaluation - assessment of transformation zone component not appl icable ( e.g. atrophy, vaginal sample, hysterectomy) GENERAL CATEGORIZATION ? Negative for Intraepithelial Lesion or Malignan cy ? Document reviewed and electronically signed by: ? BONY Thomas(ASCP) ? Report Date: ??03/15/2004 13:36 End of Report Specimen Performing Organization Address City/State/ZIP Code Phon e Number [facility] [address] [place] [address] SERVICES [facility] [address] [place] [address] documented in this encounter Visit Diagnoses Not on filedocumented in this encounter
--- OUTSIDE RECORDS SUMMARY | 2022-02-22 20:51 | XMS_ITS | Encounter Summary ---
:1950 Author Organization [facility] Address [address] [place] [address] Care Team Providers Name Role Phone Manasa Mathur MD Primary Care Provider Encounter Details Date Type Department Care Team Description 02/25/1999 Hospital Encounter [facility] - Janette Gutierrez MD [address] [facility] [address] [place] [address] [address] [place] [phone] (Wo rk) Social History Tobacco Use Types Packs/Day Years Used Date Never Assessed Sex Assigned at Date Recorded Not on file documented as of this encounter Plan of Treatment Not on filedocumented as of this encounter Visit Diagnoses Not on filedocumented in this encounter Care Teams Tailings Worker Relationship Specialty Start Date End Date Manasa Mathur MD PCP - General 03/06/15 [address] [place], [place] [phone] documented as of this encounter
--- NOTE | 2022-02-22 21:07 | HPE_ITS ---
Date of service: 02/22/22 Time of Service: 21:08 Assessment and Plan Assessment and plan (1) CVA (cerebral vascular accident): Start date: 02/22/22 Status: Acute Assessment and plan: This is a 71-year-old lady who had an episode of diffuse tremors over her upper extremities while sitting in a chair prior to admission to the ED with a syncopal episode witnessed by her with previous brief episode a week or [address] of the head without contrast did reveal a subacute or chronic lacunar infarct in the right caudate and neurological exam is completely intact though there may be some amnesia which was reported mostly by the ED physician when interviewed the with the patient. The patient does not think that she has lost memory and not remembering what she had eaten was because she thinks that she did not eat lunch the day of admission. She does have risk for CVA and on statin which was low-dose and increase to maximum dose. She is already on a beta-se and was on aspirin with Plavix initiated in the ED. She is on personnel monitor and should have further imaging including MRI/MRI if she is able to tolerate contrast, echocardiogram with bubble study and carotid ultrasound. She is a full code. (2) CKD (chronic kidney disease) stage 4, GFR 15-29 ml/min: Status: Chronic Assessment and plan: Advanced and stable with patient having history of renal artery stenosis status post stenting which was causing her to have labile hypertension at one (3) HTN (hypertension): Status: Chronic Assessment and plan: Still slightly uncontrolled with lability secondary to renal artery stenosis now status post stenting and assopciated CKD. Permissive hypertension immediately with question of acute/subacute CVA with stuttering symptoms. Modify meds with holding amlodipine for now but continuing other medications the same except for Lasix which will be held as patient has gentle IV hydration with potassium replacement. (4) Cardiomyopathy: Assessment and plan: On Lasix with hypokalemia. Potassium repletion IV and follow-up magnesium with repletion if needed. Her Lasix will be held for now with possibility that she is slightly dry with gentle IV hydration. Watch for fluid overload. (5) Hyperlipidemia: Status: Chronic Assessment and plan: On statin but this has been maximized to atorvastatin 80 mg daily with her acute neurological status. History of Present Illness History of Present Illness Chief Complaint: Body shakes with syncope and amnesia Narrative: This is a 71-year-old female history of CKD, hypertension, renal artery stenosis and aortic aneurysm status both status post stenting, presents with altered mental status and amnesia that began around 6 PM evening of admission, noted that she was unable to recall anything that he did during the day which include where they were and what they ate the patient tells me that she may not have eaten. Patient has had 2 syncopal episodes over the past week from standing position brief in nature, denies headache denies chest pain denies shortness of breath, resting comfortably hemodynamically stable slightly hypertensive on multiple medications. Patient had imaging in the ED which showed an old or subacute lacunar infarct in the right caudate and was otherwise negative with the patient not able to tolerate contrast for CTA and having only a CT of the brain. Her allergy to IV contrast is questionable. She states that during her episode the evening of admission, she had shaking over her upper body especially in the hands and felt weak while sitting in her chair and that her did attend her and she did lose time according to the . She did syncopize. As stated, she had done this recently with stuttering symptoms over the last couple weeks. Presently patient is having no complaints of florinda rological symptoms and appears to be reminded with good memory though there is no corroboration with her who is not present as in the ED. Review of Systems Narrative: 13 point review of systems otherwise unrevealing or stable. PFSH All Active Problems (Updated 02/23/22 @ 07:06 by Regan Monteiro) Hyperlipidemia (Chronic) HTN (hypertension) (Chronic) CVA (cerebral vascular accident) (Acute) Shingles (Acute) Hypertensive kidney disease with CKD stage IV (Acute) 06/25/21 [facility] Nephrology note Middle insomnia (Chronic) CKD (chronic kidney disease) stage 4, GFR 15-29 ml/min (Chronic) G4/A3 Renovascular hypertension (Chronic) 02/19/21 [facility] Nephrology Hypertensive kidney disease with CKD stage IV Renal artery stenosis (Chronic) (R) > (L) (R) YING bypass graft 09/12 Pre-transplant evaluation for CKD (chronic kidney disease) (Acute) Secondary hyperparathyroidism (Chronic) Chronic diarrhea (Acute) Cardiomyopathy (Acute) LVEF 59% on 06/16 Cervical spondylosis (Acute 08/24/07) Cirrhosis (Acute 11/15/13) from acute Hep B in 2012 Leg cramps (Chronic 12/22/17) Osteopenia (Acute 11/18/12) DEXA 10/2012; T -1.2 at hip DEXA 05/02/14; T -2.0 hip Shoulder pain (Acute 08/24/07) Advance directive on file (Acute) Hypothyroidism (Chronic) Gastro-esophageal reflux disease without esophagitis (Chronic) EGD @ [facility] 12/16/18 Anemia (Chronic) Hearing loss (Chronic) ENT 12/21/18 High blood cholesterol (Chronic) Medical History Abdominal aortic aneurysm (AAA) without rupture (01/04/16) repaired 09/202102/26/13-CT scan infra-renal, 3.1 cm, 03/16/2018 [facility] [facility] Moody. 3.7cm 01/04/16- ultrasound 3.2 cm 01/04/16-Abd US 3.2 cm diameter 07/2015 - 3.5 cm rechecked 01/01/18 note 04/18/20 substantial increase in last 6 mos, CTA ordered Acute and chronic respiratory failure with hypoxia Acute kidney injury superimposed on chronic kidney disease Acute on chronic systolic (congestive) heart failure Acute respiratory failure with hypoxia BCC (basal cell carcinoma), face (07/05/20) 05/14/20 right nasal ala- shave biopsy. Basal Cell Ca, moved to hx and BCC to problem list. 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 Basal Cell Ca, moved to hx and BCC to problem list. Surgical History Bilateral salpingectomy with oophorectomy Colonoscopy - MAC (09/27/12) DR CANCHOLA, REPEAT 10 YRS. EGD W/ BS (08/12/12) DR CANCHOLA History of AAA (abdominal aortic aneurysm) repair (~10/01/21) 10/01/21 [facility] Vascular Hysterectomy, Laproscopic (~03/1984) S/P exploratory laparotomy (~03/2020) 04/24/20 [facility] with lysis of adhesions Status post Mohs surgery (07/05/20) right nasal ala for BCC Status post surgery (09/07/18) right external iliac to right renal artery bypass with reversed rifht greater saphenous vein, [facility] Family History Grandmother Essential hypertension Mother , age 68 of ovarian cancer Ovarian cancer Father , age 60 of emphysema Emphysema lung Smoker Sister Essential hypertension Brother , age 34 of suicide Suicide Son No problems noted. Daughter No problems noted. Other Abdominal aortic aneurysm (AAA) without rupture Social History Smoking/Tobacco Use Status: Former Tobacco Use Quit Date: 04/27/08 Tobacco: How many years used: 45 Smoking risk assessment performed?: Yes Alcohol Intake: current Alcohol Intake frequency: holidays/special occasions only Alcohol type: wine Drug use: Never Substance use type: does not use Caregiver/Support person: Yes Foster care: No Household members: spouse Housing: house Number of Children: 2 number of grandchildren: 3 Communication Needs: Corrective Lenses Education Level: college Do you need help understanding health information?: Rarely 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, 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 Pets and animals: Yes Current gender identity: female What is your relationship status?: How often do you talk on the phone with friends or family?: three or more times per week How often do you get together with friends or relatives?: once per week Panel score (0-1 are the most socially isolated patients): 2 What type of physical activity do you participate in: none Special yanira needs: No Agree to transfusion: Yes Seatbelt use: always Drive intox or ride w/intox patient transportation 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 She felt her health was under control until surgery at [facility]. Surprised to find herself so debilitated. Meds Allergies and Home Medications Allergies Allergy/AdvReac Type Severity Reaction Status Date / Time Iodinated Contrast Media Allergy Severe Anaphylaxis Unverified 02/22/22 20:00 shellfish derived Allergy Unverified 02/22/22 20:00 Home Medications Medication Instructions Recorded Confirmed Type aspirin 81 mg tablet,delayed 81 mg PO DAILY 04/19/13 02/22/22 History release (Aspir-) acetaminophen 500 mg tablet 500 mg PO PRN PRN 02/16/19 02/22/22 History clonidine HCl 0.1 mg tablet 0.1 mg PO PRN hypertensive crisis 03/06/21 02/22/22 Rx #10 tabs carvedilol 12.5 mg tablet 12.5 mg PO BID #180 tabs 04/17/21 02/22/22 Rx hydralazine 25 mg tablet 25 mg PO TID #300 tabs 04/23/21 02/22/22 Rx isosorbide dinitrate 20 mg tablet 20 mg PO TID #300 tabs 04/23/21 02/22/22 Rx atorvastatin 20 mg tablet 20 mg PO QHS #90 tab-caps 07/23/21 02/22/22 Rx furosemide 20 mg tablet 20 mg PO BID #180 tabs 07/23/21 02/22/22 Rx trazodone 300 mg tablet 300 mg PO QHS sleep #90 tabs 09/03/21 02/22/22 Rx lidocaine 5 % topical ointment 1 applic topical QID PRN pain #30 11/12/21 Rx grams amlodipine 5 mg tablet 5 mg PO DAILY #90 tabs 12/03/21 02/22/22 Rx cimetidine 400 mg tablet 400 mg PO BID #180 tabs 12/03/21 02/22/22 Rx loperamide 2 mg tablet (Imodium 2 mg PO QID PRN loose stool #20 12/20/21 02/22/22 Rx A-D) tabs gabapentin 300 mg capsule 300 mg PO QHS leg pain #90 caps 12/23/21 02/22/22 Rx levothyroxine 50 mcg tablet 75 mcg PO DAILY 02/22/22 02/22/22 History Exam Narrative Exam Narrative: General: Patient appears slightly older than stated age, thin and darkly tanned. She is alert and oriented to person, place and time. She is in no acute distr ess. HEENT: Normocephalic, eyes with pupils equal and react light symmetrically, extraocular movement intact and sclera anicteric. Oropharynx with moist mucosa. Neck: Supple without JVD or palpable carotid thrills. Back: Slightly stooped posture without CVA tenderness. Lungs: Fair aeration and clear to auscultation percussion. Breast: Exam deferred. Heart: Regular rate and rhythm with no murmurs or gallops appreciated. Abdomen: Scaphoid contour, soft and nontender to palpation with no palpable hepatosplenomegaly. Genitalia/rectal: Exam deferred. Extremities: Without clubbing, cyanosis or pitting edema. Good capillary refill. Skin: Darkly tanned, otherwise normal color with no suspicious lesions or ulcerations. Warm and dry. Good turgor. Neuro: Cranial nerves II through XII gross intact, motor and sensory exam intact. General alert and not performed. No Babinski's. DTRs are physiologic and symmetrical. Psych: Normal affect and mood. No abnormal thought processes. Remote and rec ent memory intact. Results Imaging Imaging Studies: Exam: CT Head Without Contrast Exam date and time: 02/22/2022 7:58 PM Age: 71 years old Clinical indication: Stroke-like symptoms; Other: AMS, amnesia; Additional info: PT can not have contrast exam, due to past medical complications, cta/ contrast exam will not follow TECHNIQUE: Imaging protocol: Computed tomography of the head without contrast. Radiation optimization: All CT scans at this facility use at least one of these dose optimization techniques: automated exposure control; mA and/or kV adjustment per patient size (includes targeted exams where dose is matched to clinical indication); or iterative reconstruction. Other technique: STROKE PROTOCOL was implemented. COMPARISON: No relevant prior studies available. FINDINGS: Brain: There is no evidence of intracranial hemorrhage. Unremarkable white matter. No mass effect or midline shift. There is a subacute or chronic lacunar infarct of the right caudate nucleus. Cerebral ventricles: The ventricles and sulci are appropriate for the patient's age. Paranasal sinuses: There are no air-fluid levels. Mastoid air cells: The visualized mastoid air cells are well aerated. Bones/joints: No acute fracture. Soft tissues: Unremarkable. IMPRESSION: 1. No acute intracranial findings. 2. Subacute or chronic lacunar infarct of the right caudate nucleus. MRI may be helpful for further characterization if clinically indicated. Chest x-ray with no acute process Labs Result diagrams: 02/22/22 19:50 02/22/22 19:50 Labs: Laboratory Results - last 24 hr 02/22/22 02/22/22 02/22/22 19:50 19:50 19:50 WBC 8.21 RBC 4.49 Hgb 12.7 Hct 38.5 MCV 86 MCH 28.3 MCHC 33.0 RDW 19.2 H Plt Count 215 MPV 10.4 Immature Gran % 0.5 Neutrophils % 84.3 Lymphocytes % 1.8 Monocytes % 8.8 Eosinophils % 4.1 Basophils % 0.5 Nucleated RBC % 0.0 Absolute Neutrophils 6.92 H Absolute Lymphocytes 0.15 L Absolute Monocytes 0.72 Absolute Eosinophils 0.34 Absolute Basophils 0.04 PT 10.8 INR 1.1 APTT 25.6 Sodium 133 L Potassium 3.3 L Chloride 94 L Carbon Dioxide 26.7 Anion Gap 12.3 H BUN 34 H Creatinine 3.1 H Est GFR (CKD-EPI 2020) 15.30 Glucose 100 Calcium 8.9 Total Bilirubin 0.8 AST 21 ALT 14 Alkaline Phosphatase 87 Creatine Kinase 114 Troponin I < 50 Total Protein 7.9 Albumin 4.1 TSH 1.84 Ethyl Alcohol < 3.0 Last Vital Signs Temp 37.4 C 02/22/22 19:40 Pulse 86 02/22/22 20:46 Resp 20 02/22/22 20:50 BP 165/63 H 02/22/22 20:46 Pulse Ox 94 02/22/22 20:50
--- NOTE | 2022-02-22 21:15 | W.EDPROG ---
Date of service: 02/22/22 Time of Service: 21:15 Medical Decision Making Received signout from Dr. Deion Jimenez. Please see his note regarding details of the initial presentation, exam and plan of care. Labs reveal chronic renal insufficiency/chronic kidney disease. She has some mildly persistent hyponatremia and hypokalemia. CT reveals subacute or chronic lacunar infarct of the right caudate nucleus. Patient states she is unable to take normal saline and is allergic to it, although I think this is likely saline based contrast infusion that she can no longer have due to chronic kidney disease. Nonetheless, patient started on gentle fluid resuscitation with lactated Ringer's and given a salty snack by mouth. She is given potassium. Case discussed with Dr. Monteiro, will add Plavix 75 mg, increase atorvastatin to 80 mg and admit the patient for further work-up, likely to include ultrasound and MRI. Patient wishes to be full code. Sign Out Sign Out Data: Sign Out Comment: ams, amnesia, pending labs and imaging Last updated by Fausto Stone MD at 02/22/22 20:19 Discharge Plan Disposition Patient Disposition: STILL A PATIENT Discharge Details Primary Care Provider: Lexus Lawson ED Provider: Isac Ramos Home Meds and New Rx's Prescriptions: No Action clonidine HCl 0.1 mg tablet 0.1 mg PO PRN Qty: 10 2RF Hold Instructions: Home Medication placed on hold at Doctor's office Rx Instructions: only take if BP > 180 trazodone 300 mg tablet 300 mg PO QHS Qty: 90 3RF lidocaine 5 % ointment 1 applic topical QID PRN (Reason: pain) Qty: 30 0RF loperamide [Imodium A-D] 2 mg tablet 2 mg PO QID PRN (Reason: loose stool) Qty: 20 0RF Rx Instructions: acute diarrhea aspirin [Aspir-81] 81 MG tablet,delayed release (DR/EC) 81 mg PO DAILY carvedilol 12.5 mg tablet 12.5 mg PO BID Qty: 180 3RF Rx Instructions: per [facility] [place] d/c 01/21/19 isosorbide dinitrate 20 mg tablet 20 mg PO TID Qty: 300 6RF Rx Instructions: per [facility] d/c 01/21/19 hydralazine 25 mg tablet 25 mg PO TID Qty: 300 7RF Rx Instructions: per [facility] d/c 01/21/19 atorvastatin 20 mg tablet 20 mg PO QHS Qty: 90 3RF furosemide 20 mg tablet 20 mg PO BID Qty: 180 3RF Rx Instructions: Take in AM and at 4PM cimetidine 400 mg tablet 400 mg PO BID Qty: 180 3RF amlodipine 5 mg tablet 5 mg PO DAILY Qty: 90 3RF Rx Instructions: 1 daily gabapentin 300 mg capsule 300 mg PO QHS Qty: 90 3RF acetaminophen 500 mg Tablet 500 mg PO PRN PRN levothyroxine 50 mcg tablet 75 mcg PO DAILY
[2022-02-22] MEDS: POTASSIUM CHLORIDE 20 MEQ/100 ML BAG 50 MEQ IVPB (21:33)
[2022-02-22] MEDS: Clopidogrel 75 MG TAB PO (21:34)
--- NOTE | 2022-02-22 21:37 | DI.VRAD_ITS ---
PROCEDURE INFORMATION: Exam: XR Chest Exam date and time: 02/22/2022 8:03 PM Age: 71 years old Clinical indication: Other: AMS; Additional info: PT can not have contrast exam, due to past medical complications, cta/ contrast exam will not follow TECHNIQUE: Imaging protocol: Radiologic exam of the chest. Views: 1 view. COMPARISON: CT CHEST/ABD/PEL WO 04/24/2020 2:43 PM FINDINGS: Tubes, catheters and devices: EKG monitoring leads overlie the thoracic wall. Lungs: There is no evidence of focal pulmonary consolidation. Pleural spaces: No pleural effusion or pneumothorax. Heart/Mediastinum: The heart and mediastinum are normal in size. Bones/joints: Unremarkable. IMPRESSION: No acute findings. Dictated and Authenticated by: Maverick Felton MD. Ordering:MANJIT Lambert MD
[2022-02-22 21:55] LABS: COVID-19 PCR Negative (Negative); Influenza A PCR Negative (Negative); Influenza B PCR Negative (Negative); RSV PCR Negative (Negative)
[2022-02-22 22:03] LABS: Source Nasopharynx
[2022-02-22 22:17] LABS: Bilirubin Negative (Negative); Blood Trace-intact (Negative); Clarity Clear (Clear); Glucose Negative (Negative); Ketones Negative (Negative); Leukocyte Esterase Negative (Negative); Nitrite Negative (Negative); Urobilinogen 0.2 EU/dL (Up TO 0.2); pH 6.5 (5-8)
[2022-02-22 22:22] LABS: Bacteria Rare HPF (Negative); C & S Indicated? No; Casts Negative LPF (Negative); Crystals Negative HPF (Negative); Epithelial Cells Rare HPF (Negative); Mucus Negative (Negative); WBC Negative HPF (0-5)
[2022-02-22 22:25] LABS: Troponin I < 50 ng/L (<or=60)
[2022-02-22 22:29] LABS: *AMPHETAMINES SCREEN URINE Negative (Negative); *BARBITURATES SCREEN URINE Negative (Negative); *BENZODIAZEPINES SCREEN URINE Negative (Negative); Cannabinoids THC Negative (Negative); Cocaine Screen,Urine Negative (Negative); METHADONE URINE SCREEN Negative (Negative); OPIATES URINE SCREEN Negative (Negative)
[2022-02-22 22:31] LABS: Tricyclic Antidepressants Negative (Negative)
--- OUTSIDE RECORDS SUMMARY | 2022-02-22 23:25 | XMS_ITS | Encounter Summary ---
:1950 Author Organization [facility] [place] [address] Care Team Providers Name Role Phone Lexus Lawson APRN Primary Care Provider Encounter Details Date Type Department Care Team Description 02/03/2022 Orders Only Nephrology Hypertension Tyron Kemp , Anemia, unspecified at [facility] type [facility] [place] [address] [place] [address] [place] [address] [phone] Social History Tobacco Use Types Packs/Day Years Used Date Former Smoker Cigarettes 0.5 43 Quit: 2007 Smokeless Tobacco: Never Used Comments: smoked for ~45 years up to 1 p pd at max, quit ~2000 Alcohol Use Standard Drinks/Week Comments Yes 0 (1 standard drink = 0.6 oz pure a few glasses of wine, rarely 4 alcohol) times a year Alcohol Habits Answer Date Recorded How often do you have a drink Not asked containing alcohol? How many drinks containing alcohol do Not asked you have on a typical day when you are drinking? How often do you have six or more Not asked drinks on one occasion? Comment: a few glasses of wine, rarely 4 013 times a year Sex Assigned at Date Recorded Not on file documented as of this encounter Plan of Treatment Scheduled Orders Name Type Priority Associated Diagnoses Order S chedule Ferritin Lab Routine Anemia, unspecified type Exp ected: 02/03/2022, Expires: 08/05/2022 Iron and TIBC Lab Routine Anemia, unspecified type Ex pected: 02/03/2022, Expires: 08/05/2022 CBC (with Diff) Lab Routine Anemia, unspecified type Expected: 02/03/2022, Expires: 08/05/2022 Scheduled Procedures Name Priority Associated Diagnoses Date/Time EGD, UPPER GI ENDOSCOPY Gastroesophageal reflux disease, esophagitis presence not specifi ed documented as of this encounter Visit Diagnoses Diagnosis Anemia, unspecified type documented in this encounter Care Teams Electric Trucker Relationship Specialty Start Date End Date Lexus Lawson APRN PCP - General Geriatric Medicine 12/24/[address] [place] [address] documented as of this encounter
--- OUTSIDE RECORDS SUMMARY | 2022-02-22 23:25 | XMS_ITS | Clinical Summary ---
:1950 Author Organization [facility] [address] Care Team Providers Name Role Phone GregoryJackiLexus doran KYRA Primary Care Provider Allergies No known active allergies Medications Medication Sig Dispensed Refills Start Date End Date Status aspirin 81 mg Tablet, Take 81 mg by 0 Active Delayed Release (E.C.) mouth daily. acetaminophen Take 1 tablet by 30 tablet 1 09/14/2018 Active (TYLENOL) 500 mg mouth every 6 Tablet hours. atorvastatin (LIPITOR) Take 1 tablet by 90 tablet 3 10/07/2018 Active 20 mg Tablet mouth every evening. cloNIDine (CATAPRES) Take 1 tablet by 30 tablet 3 10/07/2018 Active 0.1 mg Tablet mouth every 8 hours as needed (Please take 1 tablet, if systolic blood pressure is >200). gabapentin (NEURONTIN) Take 300 mg by 0 Active 100 mg Capsule mouth nightly. furosemide (Lasix) 20 Take 20 mg by 0 Active mg Tablet mouth 2 times daily. Takes at 0800 and 1600 cimetidine (TAGAMET) Take 400 mg by 0 Active 400 mg Tablet mouth 2 times daily. amLODIPine (Norvasc) 5 Take 1 tablet by 90 tablet 1 12/23/2019 Active mg TabletIndications: mouth daily. Uncontrolled hypertension levothyroxine Take 1 tablet by 90 tablet 3 01/06/2020 Active (Synthroid) 75 mcg mouth daily. Tablet carvediloL (Coreg) Take 1 tablet by 180 tablet 3 03/29/2020 Active 12.5 mg mouth 2 times TabletIndications: daily (with Hypertensive urgency meals). hydrALAZINE Take 1 tablet by 270 tablet 3 03/29/2020 Active (Apresoline) 25 mg mouth 3 times TabletIndications: daily. Hypertensive urgency isosorbide dinitrate Take 1 tablet by 270 tablet 3 03/29/2020 Active (ISORDIL) 20 mg mouth 3 times TabletIndications: daily. Chest pain, unspecified type traZODone (DESYREL) TAKE ONE TABLET 0 04/04/2021 Active 150 mg Tablet BY MOUTH AT BEDTIME NEEDED FOR SLEEP Active Problems Problem Noted Date GAEL (acute kidney injury) 10/06/2021 SBO (small bowel obstruction) 04/24/2020 Pulmonary hypertension 12/20/2019 Pre-transplant evaluation for CKD (chronic kidney dise ase) 05/31/2019 Uncontrolled hypertension 01/09/2019 Anemia of chronic renal failure, stage 4 (severe) 12/26 Chest pain 01/08/2019 Hypertensive urgency 01/08/2019 Systolic HF (heart failure) 01/08/2019 CKD (chronic kidney disease) stage 5, GFR less than 15 ml/min 01/04/2019 Hypertensive urgency 08/29/2018 Renal artery stenosis 03/17/2018 Abdominal aortic aneurysm (AAA) without rupture 2017 Viral hepatitis B acute 03/04/2013 Resolved Problems Problem Noted Date Resolved Date Severe protein-calorie malnutrition 10/04/201811/2021 Overview: Weight loss of 15.8% x 26 days from 47.4 kg (08/29) to 39.9 kg (10/04) and presents with lean muscle loss at clavicles and subcutaneous fat loss at triceps consistent with severe protein calorie malnutrition. Syncope 10/02/2018 2018 Acute hepatitis 03/04/2013 2018 Encounters Date Type Specialty Care Team Description 02/03/2022 Orders Only Nephrology Tyron Kemp, Anemia, u nspecified MD type 01/30/2022 Telephone Nephrology Eva Montana, [place] 01/08/2022 Hospital Encounter Med Infusion Anemia of chronic renal failure, stage 4 (severe) 01/07/2022 Ancillary Procedure Radiology Lexus Lawson, KYRA 12/31/2021 Office Visit Dermatology Schlater, Iain J, MD Seborrhei c keratosis (Primary Dx); History of skin cancer 12/31/2021 Hospital Encounter Med Infusion Anemia of chronic renal failure, stage 4 (severe) 12/24/2021 Hospital Encounter Med Infusion Anemia of chronic renal failure, stage 4 (severe) 12/02/2021 Telephone Nephrology Rashmi Vega RN 11/29/2021 Orders Only Nephrology Eva Montana, [place] 11/29/2021 Telephone Nephrology Eva Montana RN 11/28/2021 Office Visit Nephrology Tyron Kemp, Anemia, u nspecified type; CKD (chronic kidney disease) stage 4, GF R 15-29 ml/min [employer] Lead, A 11/28/2021 Laboratory Appointment Lab CKD ( chronic kidney disease) stage 4, GFR 15-29 ml/min 11/27/2021 Hospital Encounter Radiology Tyron Kemp MD 11/27/2021 Hospital Encounter Radiology Tyron Kemp MD 11/27/2021 Hospital Encounter Radiology Tyron Kemp MD 11/27/2021 Hospital Encounter Radiology Tyron Kemp, [facility] nettie kidney disease, unspec ified CKD stage 11/27/2021 Hospital Encounter Radiology Tyron Kemp Chr onic kidney disease, unspec ified CKD stage from Last 3 Months Immunizations Name Administration Dates Next Due Hepatitis A Vaccine, Adult 05/18/2015, 12/08/2014, 4 10/17/2015 Influenza Vaccine, Unspecified 02/01/2019 Formulation Pneumococcal Conjugate (13 Valent) 05/24/2019 Pneumococcal Polyvalent 23 05/18/2015 Td Vaccine, Absorbed, PF, Adult 05/20/2011 Zoster, Recombinant 11/25/2019, 06/08/2019 Family History Medical History Relation Comments Chronic Obstructive Pulmonary Disease Father Cervical Cancer Mother Hypertension Mother Hypertension Sister Relation Status Comments Brother (Age 42) suicide Father (Age 60) COPD Mother (Age 68) cancer, ovarian or c ercival Sister Alive Social History Tobacco Use Types Packs/Day Years Used Date Former Smoker Cigarettes 0.5 45 Quit: 2007 Smokeless Tobacco: Never Used Comments: smoked for ~45 years up to 1 p pd at max, quit ~1999 Alcohol Use Standard Drinks/Week Comments Yes 0 [...] Assigned at Date Recorded Not on file Last Filed Vital Signs Vital Sign Reading Time Taken Comments Blood Pressure 145/65 01/08/2022 2:55 PM EDT Pulse 65 01/08/2022 2:55 PM EDT Temperature 36.8 ??C (98.2 ??F) 01/08/2022 2:55 PM EDT Respiratory Rate 16 12/31/2021 1:51 PM EDT Oxygen Saturation 97% 01/08/2022 2:55 PM EDT Inhaled Oxygen Concentration - - Weight 44.3 kg (97 lb 9.6 oz) 01/08/2022 2:55 PM EDT Height 152.4 cm (5') 10/30/2021 1:00 PM EDT reported Body Mass Index 19.06 10/30/2021 1:00 PM EDT Plan of Treatment Scheduled Procedures Name Priority Associated Diagnoses Date/Time EGD, UPPER GI ENDOSCOPY Gastroesophageal reflux disease, esophagitis presence not specifi ed Health Maintenance Due Date Last Done Comments Covid-19 Vaccine (#1) 05/12/1951 Tdap adult 11/10/1967 Breast Cancer Share Decision 1988 Needed Colonoscopy 1993 Breast Cancer screening 1998 Bone Density Scan 2013 Tetanus vaccine 05/20/2021 05/20/2011 Influenza (Flu) vaccine ( - 12/26/2021 02/01/2019 Influenza standard series) Hepatitis C Screening Completed 05/24/2019, 05/24/2019, 01/09/2019, Additional history exists Pneumoccocal Vaccine: 65+ Completed 05/24/2019, 05/18/2015 Zoster vaccine Completed 11/25/2019, 06/08/2019 Medical Devices Implanted Type Area Green Coffee Blender Device Shelf Model / Identifier Expiration Serial / Date Lot Stent Graft [id number] Aaa Excluder ([id number]) (Autoreq) - Log1 [id number] IMPLANTS Right: MARY DELGADO AND [id number] 06/23/2024 [id number] / Implanted: Qty: 1 on 10/01/2021 by Regan Trevizo MD at [facility] [employer] [id number] / INCORPORATED - MARY DELGADO AN Description: Right Common Iliac Procedures Procedure Name Priority Date/Time Associated Diagnosis Comme nts ULTRASOUND SCAN 01/08/2022 12:00 Results for this (SCAN) AM EDT procedure are i n the results section. FILM LIBRARY STORAGE Routine 01/07/2022 8:10 PM R esults for this ONLY ULTRASOUND EDT procedure ar e in STUDY the results section. HC PROTEIN, Routine 11/28/2021 11:36 CKD (chronic kidney Resu lts for this QUANTITATIVE, URINE AM EDT disease) stage 4, pro cedure are in GFR 15-29 ml/min the results section. FERRITIN Routine 11/28/2021 11:31 Results for this AM EDT procedure are i n the results section. IRON AND TIBC Routine 11/28/2021 11:31 Results fo r this AM EDT procedure are i n the results section. DIFFERENTIAL, Routine 11/28/2021 11:31 CKD (chronic kidney Res ults for this AUTOMATED AM EDT disease) stage 4, procedure are in GFR 15-29 ml/min the results section. HEMOGRAM Routine 11/28/2021 11:31 CKD (chronic kidney Resu lts for this AM EDT disease) stage 4, procedure are in GFR 15-29 ml/min the results section. HC CBC,PLT & AUTO Routine 11/28/2021 11:31 CKD (chronic kidney DIFF AM EDT disease) stage 4, GFR 15-29 ml/min BASIC METABOLIC Routine 11/28/2021 11:31 CKD (chronic kidney R esults for this PANEL (NON-FASTING) AM EDT disease) stage 4, pro cedure are in GFR 15-29 ml/min the results section. HC PHOSPHORUS, SERUM Routine 11/28/2021 11:31 CKD (chronic kid liza Results for this AM EDT disease) stage 4, procedure are in GFR 15-29 ml/min the results section. HC ALBUMIN, SERUM Routine 11/28/2021 11:31 CKD (chronic kidney Results for this AM EDT disease) stage 4, procedure are in GFR 15-29 ml/min the results section. HC URIC ACID, SERUM Routine 11/28/2021 11:31 CKD (chronic kidn ey Results for this AM EDT disease) stage 4, procedure are in GFR 15-29 ml/min the results section. HC PARATHYROID Routine 11/28/2021 11:31 CKD (chronic kidney Re sults for this HORMONE(PTH INTACT AM EDT disease) stage 4, proc edure are in GFR 15-29 ml/min the results section. GOLD TUBE HOLD Routine 11/28/2021 11:31 CKD (chronic kidney Re sults for this AM EDT disease) stage 4, procedure are in GFR 15-29 ml/min the results section. NM RENAL WITH Routine 11/27/2021 1:41 PM Chronic kidney Result s for this FUNCTION STUDY EDT disease, unspecified proce dure are in CKD stage the results section. NM GFR (GLOMERULAR Routine 11/27/2021 12:40 Chronic kidney Res ults for this FILTRATION RATE) PM EDT disease, unspecified pro cedure are in STUDY CKD stage the results section. from Last 3 Months Results SCAN DOC: ULTRASOUND (01/08/2022 12:00 AM EDT) Narrative 01/08/2022 12:00 AM EDT This result has an attachment that is no t available. Ordered by an unspecified provider. Scanning Provider MEDIA MGR SCAN EXT ORDR/RSLT Film Library- Storage Only Ultrasound Study (01/07/2022 8:10 PM EDT) Specimen (Source) Anatomical Location Collection Method / Collectio n Time Received Time / Laterality Volume Narrative [facility] - 01/07/2022 8:10 PM EDT This exam is auto-finalizing. It's purpo se is for storage only. Lexus Lawson APRN IMG FILM LIBRARY ORDERABLES Performing Organization Address City/State/ZIP Code Phon e Number [place], [place] (ABNORMAL) Protein/Creatinine Ratio, urine (11/28/2021 11:36 AM EDT) P athologist Signature U Creatinine 43 mg/dL [facility] U Protein Ran 96 (H) 0 - 12 [facility] mg/dL [facility] Prot/Cre Ratio 2.2 ratio [facility] Specimen Anatomical Collection Method Collection Time Receive d Time (Source) Location / / Volume Laterality Urine 11/28/2021 11:36 11/28/2021 AM EDT 11:56 AM EDT Resulting Agency Comment Spec In Lab Tyron Kemp MD URINE ORDERABLES Performing Organization Address City/State/[place] [address] (ABNORMAL) PTH (11/28/2021 11:31 AM EDT) P athologist Signature PTH 100 (H) 15 - 65 [place] pg/mL [facility] Specimen Anatomical Collection Method Collection Time Receive d Time (Source) Location / / Volume Laterality Blood 11/28/2021 11:31 11/28/2021 AM EDT 11:36 AM EDT Resulting Agency Comment Spec In Lab Tyron Kemp MD CHEMISTRY ORDERABLES Performing Organization Address City/[facility]/[place] [address] (ABNORMAL) Hemogram (11/28/2021 11:31 AM EDT) Analysis Performed At Patho logist Time Signature WBC 8.3 4.0 - 9.5 [place] x10(3)/[facility] LABORATORY RBC 3.47 (L) 4.00 - [place] 5.21 [facility] x10(6)/[facility] LABORATORY Hemoglobin 9.0 (L) 11.7 - [place] 15.5 g/dL [facility] Hematocrit 27.8 (L) 35.7 - [place] 45.8 % [facility] MCV 80.1 (L) 82.6 - [place] 94.4 [facility] LABORATORY MCH 25.9 (L) 27.1 - [place] 32.0 pg [facility] MCHC 32.4 31.7 - [place] 35.0 g/dL [facility] Platelets 361 (H) 145 - 357 [place] x10(3)/[facility] LABORATORY RDWSD 51.2 (H) 37.0 - [place] 46.0 [facility] LABORATORY RDWCV 17.3 (H) 11.5 - [place] 14.1 % [facility] MPV 9.3 7.6 - 12.9 [facility] LABORATORY nRBC % Auto 0.0 % [facility] nRBC Abs Auto 0.000 0.000 - [facility] 0.000 [facility] x10(3)/[facility] LABORATORY Specimen Anatomical Collection Method Collection Time Receive d Time (Source) Location / / Volume Laterality Blood 11/28/2021 11:31 11/28/2021 AM EDT 11:36 AM EDT Resulting Agency Comment Spec In Lab Tyron Kemp MD HEMATOLOGY ORDERABLES Performing Organization Address City/State/Z[place] [address] (ABNORMAL) Differential, Automated (11/28/2021 11:31 AM EDT) [facility] Method Time Signature Neutrophils % 63.1 % [facility] Neutr Abs (ANC) 5.26 1.70 - [facility] 6.10 [facility] x10(3)/[facility] LABORATORY Lymphocytes % 12.5 % [facility] Lymphocytes Abs 1.0 0.9 - 3.2 [facility] x10(3)/[facility] LABORATORY Monocytes % 15.7 % [facility] Monocyte Abs 1.3 (H) 0.3 - 0.9 [facility] x10(3)[facility] LABORATORY Eosinophils % 7.4 % [facility] Eosinophils Abs 0.6 (H) 0.0 - 0.4 [facility] x10(3)/[facility] LABORATORY Basophils % 0.8 % [facility] Basophils Abs 0.1 0.0 - 0.1 [facility] x10(3)/[facility] LABORATORY Immature Gran % 0.50 % [facility] Comment: Immature granulocytes(IG's)percentage an d absolute count will include metamyelocytes, myelocytes, and promyelo cytes. Blood smears from CBCs yielding IG's will be scanned manually for concor dance. If this scan disagrees with the automated IG or if promyelocytes are not ed, a manual differential will be performed. Blanca Gran Abs 0.04 0.00 - 0.04 x10(3)/[facility]ORY Specimen Anatomical Collection Method Collection Time Receive d Time (Source) Location / / Volume Laterality Blood 11/28/2021 11:31 11/28/2021 AM EDT 11:36 AM EDT Resulting Agency Comment Spec In Lab Tyron Kemp MD HEMATOLOGY ORDERABLES Performing Organization Address City/[facility]/ZIP Code Phon e Number [address] Gold Tube HOLD (11/28/2021 11:31 AM EDT) P athologist Signature Gold Hold Sample in [facility] LABORATORY Specimen Anatomical Collection Method Collection Time Receive d Time (Source) Location / / Volume Laterality Blood 11/28/2021 11:31 11/28/2021 AM EDT 11:36 AM EDT Tyron Kemp MD CHEMISTRY ORDERABLES Performing Organization Address City/[facility]/RUST Code Phon e Number [address] (ABNORMAL) Iron and TIBC (11/28/2021 11:31 AM EDT) P athologist Signature Iron 24 (L) 30 - 150 [facility] mcg/dL [facility] TIBC 259 250 - 450 [facility] mcg/dL [facility] Iron Saturation 9 (L) 20 - 50 % [facility] Specimen Anatomical Collection Method Collection Time Receive d Time (Source) Location / / Volume Laterality Blood Venous Draw / 11/28/2021 11:31 11/28/2021 Unknown AM EDT 11:39 AM EDT Resulting Agency Comment Spec In Lab yTron Kemp MD CHEMISTRY ORDERABLES Performing Organization Address City/[facility]/ZIP Code Phon e Number [address] (ABNORMAL) Uric acid (11/28/2021 11:31 AM EDT) P athologist Signature Uric Acid 7.0 (H) 2.5 - 6.5 [facility] mg/dL [facility] Specimen Anatomical Collection Method Collection Time Receive d Time (Source) Location / / Volume Laterality Blood 11/28/2021 11:31 11/28/2021 AM EDT 11:36 AM EDT Resulting Agency Comment Spec In Lab Tyron Kemp MD CHEMISTRY ORDERABLES Performing Organization Address City/State/ZIP Code Phon e Number [address] Phosphorus (11/28/2021 11:31 AM EDT) athologist Signature Phosphorus 4.0 2.5 - 4.5 [place] mg/dL [facility] Specimen Anatomical Collection Method Collection Time Receive d Time (Source) Location / / Volume Laterality Blood 11/28/2021 11:31 11/28/2021 AM EDT 11:36 AM EDT Resulting Agency Comment Spec In Lab Tyron Kemp MD CHEMISTRY ORDERABLES Performing Organization Address City/[facility]/ZIP Code Phon e Number [address] Ferritin (11/28/2021 11:31 AM EDT) athologist Signature Ferritin 76 30 - 400 [place] ng/mL [facility] Comment: Pediatric reference ranges not verified at [facility], interpret with caution. Reference ranges for females greater letty n 50 years of age approach values for men, i.e., 30-400 ng/mL. Specimen Anatomical Collection Method Collection Time Receive d Time (Source) Location / / Volume Laterality Blood No Charge / 11/28/2021 11:31 11/28/2021 Unknown AM EDT 11:38 AM EDT Resulting Agency Comment Spec In Lab Tyron Kemp MD CHEMISTRY ORDERABLES Performing Organization Address City/State/ZIP Code Phon e Number [address] Albumin Level (11/28/2021 11:31 AM EDT) athologist Signature Albumin 3.9 3.2 - 5.2 [place] g/dL [facility] Specimen Anatomical Collection Method Collection Time Receive d Time (Source) Location / / Volume Laterality Blood 11/28/2021 11:31 11/28/2021 AM EDT 11:36 AM EDT Resulting Agency Comment Spec In Lab Tyron Kemp MD CHEMISTRY ORDERABLES Performing Organization Address City/State/ZIP [place] [address] (ABNORMAL) Basic Metabolic Panel (non-fasting) (11/28/2021 11:31 AM EDT) P athologist Signature Glucose Lvl 76 65 - 199 [facility] mg/dL [facility] Comment: Diabetes: >=200 mg/dL plus symp toms BUN 34 (H) 8 - 18 mg/dL [facility] Creatinine 2.67 (H) 0.70 - 1.20 mg/dL [facility] Sodium 136 135 - 145 mmol/L [facility] Potassium 4.4 3.5 - 5.0 mmol/L [facility] Comment: Please note: ??Patients with WBC >100,00 0 may have falsely elevated Potassium levels. ??For accurate Potassium quantif ication in these patients send serum separator tube (gold top) for subsequent determinations. ??Contact the Clinical Chemistry Laboratory if there are any qu estions. Chloride 98 98 - 107 mmol/L [facility] CO2 26 22 - 31 mmol/L [facility] Anion Gap 12 5 - 15 mmol/L [facility] Calcium 8.8 8.5 - 10.5 mg/dL [facility] Estimated GFR 18 (L) >=60 mL/min/1.73 m?? [facility] Comment: This patient's estimated GFR was calcula ti using the 2020 CKD-EPI equation. The estimated GFR can vary from the jovani ured GFR by up to 30% in the absence of rapidly changing kidney function. Assess ment of the estimated GFR is not appropriate when creatinine concentratio ns are rapidly changing. For clinical situations in which a more precise estim ate of GFR is necessary, consider alternative methods of GFR estimation arthur ch as a 24-hour urine creatinine clearance. Assignment of CKD stage 1-5 for patients with an eGFR near the transition point between stages may be based on clinical assessment of muscle mass and symptoms in addition to eGFR. Specimen Anatomical Collection Method Collection Time Receive d Time (Source) Location / / Volume Laterality Blood 11/28/2021 11:31 11/28/2021 AM EDT 11:36 AM EDT Resulting Agency Comment Spec In Lab Tyron Kemp MD CHEMISTRY ORDERABLES Performing Organization Address City/State/[place] [address] NM Renal w Function Study (11/27/2021 1:41 PM EDT) Anatomical Region Laterality Modality Nuclear Medicine Specimen (Source) Anatomical Location Collection Method / Collectio n Time Received Time / Laterality Volume Impressions 11/28/2021 12:01 PM EDT 1. The glomerular filtration rate is 21. 9 mL/m per 1.73 m2 body surface area. 2. Severely diminished extraction and ex cretion of the left kidney relative to the right with split function as above. I have personally reviewed the image(s) and the resident's interpretation and agree with the findings, Viviane Bain at 11/28/2021 12:01 PM Thank you for letting us participate in the care of this patient. ??If you are a health care provider and have any questi ons regarding this report, please contact the number below. ??For patients who have questions please contact the health career placement specialist that requested your imaging first. ? Electronically signed by: Lars Hernandez MD, [facility] ([phone]), at 11/28/2021 12:01 PM Narrative 11/28/2021 12:01 PM EDT EXAMINATION: NM RENAL W FUNCTION STUDY, NM GFR GLOMERULAR FILTRATION RATE STUDY CLINICAL HISTORY: Would like to laterali ze GFR status post aortic grafting TECHNIQUE: Technetium-99m DTPA was admin istered intravenously in a dose of 0.1 mCi. Timed blood samples were drawn at o ne, two and three hours later. Plasma was and counted in comparison with a prepared standard. Technetium-99m DTPA was administered int ravenously in a dose of 4.1 mCi. Images of the kidneys were obtained in the post erior projection at 2 second intervals for 1 minute and then 1 minute intervals for 10 minutes. FINDINGS: Glomerular filtration rate was calculate d using standard technique as 17.8 ml/m with a corrected GFR of 21.9 ml/m per 1. 73 m2 body surface area. There is severely diminished extraction and excretion of the left kidney relative to the right. Split function: Left kidney 10 %, Right kidney 90 % Procedure Note Lars Hernandez MD - 11/28/2021Formatti ng of this note might be different from the original. EXAMINATION: NM RENAL W FUNCTION STUDY, NM GFR GLOMERULAR FILTRATION RATE STUDY CLINICAL HISTORY: Would like to laterali ze GFR status post aortic grafting TECHNIQUE: Technetium-99m DTPA was admin istered intravenously in a dose of 0.1 mCi. Timed blood samples were drawn at o ne, two and three hours later. Plasma was and counted in comparison with a prepared standard. Technetium-99m DTPA was administered int ravenously in a dose of 4.1 mCi. Images of the kidneys were obtained in the post erior projection at 2 second intervals for 1 minute and then 1 minute intervals for 10 minutes. FINDINGS: Glomerular filtration rate was calculate d using standard technique as 17.8 ml/m with a corrected GFR of 21.9 ml/m per 1. 73 m2 body surface area. There is severely diminished extraction and excretion of the left kidney relative to the right. Split function: Left kidney 10 %, Right kidney 90 % IMPRESSION 1. The glomerular filtration rate is 21. 9 mL/m per 1.73 m2 body surface area. 2. Severely diminished extraction and ex cretion of the left kidney relative to the right with split function as above. I have personally reviewed the image(s) and the resident's interpretation and agree with the findings, Viviane Bain at 11/28/2021 12:01 PM Thank you for letting us participate in the care of this patient. If you are a health care provider and have any questi ons regarding this report, please contact the number below. For patients w ho have questions please contact the health career placement specialist that requested your imaging first. Electronically signed by: Lars Hernandez MD, [facility] ([phone]), at 11/28/2021 12:01 PM Tyron Kemp MD IMG NM ORDERABLES NM GFR Glomerular Filtration Rate Study (11/27/2021 12:40 PM EDT) Anatomical Region Laterality Modality Nuclear Medicine Specimen (Source) Anatomical Location Collection Method / Collectio n Time Received Time / Laterality Volume Impressions 11/28/2021 12:01 PM EDT 1. The glomerular filtration rate is 21. 9 mL/m per 1.73 m2 body surface area. 2. Severely diminished extraction and ex cretion of the left kidney relative to the right with split function as above. I have personally reviewed the image(s) and the resident's interpretation and agree with the findings, Viviane Bain at 11/28/2021 12:01 PM Thank you for letting us participate in the care of this patient. ??If you are a health care provider and have any questi ons regarding this report, please contact the number below. ??For patients who have questions please contact the health career placement specialist that requested your imaging first. ? Electronically signed by: Lars Hernandez MD, [facility] ([phone]), at 11/28/2021 12:01 PM Narrative 11/28/2021 12:01 PM EDT EXAMINATION: NM RENAL W FUNCTION STUDY, NM GFR GLOMERULAR FILTRATION RATE STUDY CLINICAL HISTORY: Would like to laterali ze GFR status post aortic grafting TECHNIQUE: Technetium-99m DTPA was admin istered intravenously in a dose of 0.1 mCi. Timed blood samples were drawn at o ne, two and three hours later. Plasma was and counted in comparison with a prepared standard. Technetium-99m DTPA was administered int ravenously in a dose of 4.1 mCi. Images of the kidneys were obtained in the post erior projection at 2 second intervals for 1 minute and then 1 minute intervals for 10 minutes. FINDINGS: Glomerular filtration rate was calculate d using standard technique as 17.8 ml/m with a corrected GFR of 21.9 ml/m per 1. 73 m2 body surface area. There is severely diminished extraction and excretion of the left kidney relative to the right. Split function: Left kidney 10 %, Right kidney 90 % Procedure Note Lars Hernandez MD - 11/28/2021Formatti ng of this note might be different from the original. EXAMINATION: NM RENAL W FUNCTION STUDY, NM GFR GLOMERULAR FILTRATION RATE STUDY CLINICAL HISTORY: Would like to laterali ze GFR status post aortic grafting TECHNIQUE: Technetium-99m DTPA was admin istered intravenously in a dose of 0.1 mCi. Timed blood samples were drawn at o ne, two and three hours later. Plasma was and counted in comparison with a prepared standard. Technetium-99m DTPA was administered int ravenously in a dose of 4.1 mCi. Images of the kidneys were obtained in the post erior projection at 2 second intervals for 1 minute and then 1 minute intervals for 10 minutes. FINDINGS: Glomerular filtration rate was calculate d using standard technique as 17.8 ml/m with a corrected GFR of 21.9 ml/m per 1. 73 m2 body surface area. There is severely diminished extraction and excretion of the left kidney relative to the right. Split function: Left kidney 10 %, Right kidney 90 % IMPRESSION 1. The glomerular filtration rate is 21. 9 mL/m per 1.73 m2 body surface area. 2. Severely diminished extraction and ex cretion of the left kidney relative to the right with split function as above. I have personally reviewed the image(s) and the resident's interpretation and agree with the findings, Viviane Bain at 11/28/2021 12:01 PM Thank you for letting us participate in the care of this patient. If you are a health care provider and have any questi ons regarding this report, please contact the number below. For patients w ho have questions please contact the health career placement specialist that requested your imaging first. 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 on Advance Directives and Living 09/16/2018 7:37 AM 08.02.2013 Will Latest Code Status on File Code Status Date Activated Date Inactivated Comments Attempt Cardiopulmonary Resuscitation - 10/01/2021 12:55 PM 022 4:19 PM Inpatient Code Status decision made by: Patient Attempt Cardiopulmonary Resuscitation - 10/01/2021 6:55 AM 12:55 PM Inpatient Code Status decision made by: Patient Attempt Cardiopulmonary Resuscitation - 08/01/2021 12:34 PM 08/03/19 4:39 AM Inpatient Code Status decision made by: Patient Attempt Cardiopulmonary Resuscitation - 04/24/2020 10:22 PM 2020 3:46 PM Inpatient Code Status decision made by: Patient Full Code 01/08/2019 6:00 AM 01/20/2019 5:03 PM Does patient have capacity to make Yes decision: Content of discussion: The patient wishes to be full code on this admission. Care Teams Merchandise Deliverer Relationship Specialty Start Date End Date Lexus Lawson APRN PCP - General Geriatric Medicine 12/24/21 4 [place] [address]
--- OUTSIDE RECORDS SUMMARY | 2022-02-22 23:26 | XMS_ITS | Encounter Summary ---
:1950 Author Organization [facility] [place] [address] Care Team Providers Name Role Phone Sanjuanita Lee MD Primary Care Provider Reason for Referral Diagnostic Test (Routine) - Closed Specialty Diagnoses / Procedures Referred By Contact Refer red To Contact Radiology Diagnoses Chronic kidney disease, unspecified CKD stage Tyron Kemp MD [facility] Rad Nuclear Med Procedures NM GFR Glomerular [place] [address] [place] [address] Fax: Referral ID Status Reason Start Date Expiration Date Visits V isits Requested Authorized [id number] Closed Specialty 11/04/2021 05/07/2023 1 1 Service Requested Reason for Visit Diagnostic Test (Routine) - Closed Specialty Diagnoses / Procedures Referred By Contact Refer red To Contact Radiology Diagnoses Chronic kidney disease, unspecified CKD stage Tyron Kemp MD [facility] Rad Nuclear Med Procedures NM GFR Glomerular [place] [address] [place] [address] Fax: Referral ID Status Reason Start Date Expiration Date Visits V isits Requested Authorized [id number] Closed Specialty 11/04/2021 05/07/2023 1 1 Service Requested Encounter Details Date Type Department Care Team Description 11/27/2021 Hospital Encounter Nuclear Medicine at [facility] kidney Mariama Muñoz MD disease, unspecified [facility] CKD stage [facility] [address] [place], [place] [address] [phone] Social History Tobacco Use Types Packs/Day Years [...] on file documented as of this encounter Medications at Time of Discharge Medication Sig Dispensed Refills Start Date End Date traZODone (DESYREL) 150 mg TAKE ONE TABLET BY 0 1 06/05/2020 Tablet MOUTH AT BEDTIME NEEDED FOR SLEEP carvediloL (Coreg) 12.5 mg Take 1 tablet by 180 tablet 3 06/2019 TabletIndications: mouth 2 times daily Hypertensive urgency (with meals). hydrALAZINE (Apresoline) Take 1 tablet by 270 tablet 3 03/29 25 mg TabletIndications: mouth 3 times daily. Hypertensive urgency isosorbide dinitrate Take 1 tablet by 270 tablet 3 0 (ISORDIL) 20 mg mouth 3 times daily. TabletIndications: Chest pain, unspecified type levothyroxine (Synthroid) Take 1 tablet by 90 tablet 3 12/26 75 mcg Tablet mouth daily. amLODIPine (Norvasc) 5 mg Take 1 tablet by 90 tablet 1 11/26 TabletIndications: mouth daily. Uncontrolled hypertension cimetidine (TAGAMET) 400 Take 400 mg by mouth 0 mg Tablet 2 times daily. furosemide (Lasix) 20 mg Take 20 mg by mouth 0 Tablet 2 times daily. Takes at 0800 and 1600 gabapentin (NEURONTIN) 100 Take 300 mg by mouth 0 mg Capsule nightly. atorvastatin (LIPITOR) 20 Take 1 tablet by 90 tablet 3 09/25 mg Tablet mouth every evening. cloNIDine (CATAPRES) 0.1 Take 1 tablet by 30 tablet 3 10/07 mg Tablet mouth every 8 hours as needed (Please take 1 tablet, if systolic blood pressure is >200). acetaminophen (TYLENOL) Take 1 tablet by 30 tablet 1 2018 500 mg Tablet mouth every 6 hours. aspirin 81 mg Tablet, Take 81 mg by mouth 0 Delayed Release (E.C.) daily. documented as of this encounter Plan of Treatment Scheduled Procedures Name Priority Associated Diagnoses Date/Time EGD, UPPER GI ENDOSCOPY Gastroesophageal reflux disease, esophagitis presence not specifi ed documented as of this encounter Procedures Procedure Name Priority Date/Time Associated Diagnosis Comme nts NM GFR (GLOMERULAR Routine 11/27/2021 12:40 Chronic kidney Res ults for this FILTRATION RATE) PM EDT disease, unspecified pro cedure are in STUDY CKD stage the results section. documented in this encounter Results NM GFR Glomerular Filtration Rate Study (11/27/2021 [...] who have questions please contact the health rn palliative care that requested your imaging first. ? Narrative 11/28/2021 12:01 PM EDT EXAMINATION: NM [...] ho have questions please contact the health rn palliative care that requested your imaging first. Tyron Kemp MD IMG NM ORDERABLES documented in this encounter Visit Diagnoses Diagnosis Chronic kidney disease, unspecified CKD stage documented in this encounter Administered Medications Inactive Administered Medications - up to 3 most recent administrations Medication Order MAR Action Action Date Dose Rate Site technetium (Tc-99m) pentetate Given 11/27/2021 9:35 AM EDT 0.134 mCi (DTPA) solution 0-5 mCi 0-5 mCi, Intravenous, ONCE PRN, 1 dose, Starting on Thu11/27/21 at 0941, Until Thu11/27/21 at 0935, Per Protocol, Radiology Contrast, Routine documented in this encounter Care Teams Pals Specialist Relationship Specialty Start Date End Date Sanjuanita Lee MD PCP - General 03/05/13 12/23/[address] [place] [address] documented as of this encounter
--- OUTSIDE RECORDS SUMMARY | 2022-02-22 23:26 | XMS_ITS | Encounter Summary ---
:1950 Author Organization [facility] [place] [address] Care Team Providers Name Role Phone Sanjuanita Lee MD Primary Care Provider Encounter Details Date Type Department Care Team Description 10/15/2021 Telephone Nephrology Hypertension at Jessenia Montana, [facility] [place] [address] Social History Tobacco Use Types Packs/Day Years [...] on file documented as of this encounter Miscellaneous Notes Telephone Encounter - Eva [place] RN - 10/15/2021 12:49 PM EDT S/O: Call from Abbie KIRK in Vascular. Jami had her AAA repair that was complicated by GAEL that had been improving at time of discharge. On 10/07 her creatinine was 2.41. Repeat creatinine today at PCP office was 3.8. No additional labs were drawn today. Spoke with Charlene who reports adequate po intake and no feeling of retention. Discussed with Dr Kemp who requested a fluid challenge of 2 L LR which Charlene would like to do at [facility]. He also would like to do a bladder scan with PVR. P: Orders sent to [facility] for IVF and Bladder scan documented in this encounter Plan of Treatment Scheduled Procedures Name Priority Associated Diagnoses Date/Time EGD, UPPER GI ENDOSCOPY Gastroesophageal reflux disease, esophagitis presence not specifi ed documented as of this encounter Visit Diagnoses Not on filedocumented in this encounter Care Teams Physician Surgeon Relationship Specialty Start Date End Date Sanjuanita Lee MD PCP - General 03/05/13 12/23/[address] [place] [address] documented as of this encounter
--- OUTSIDE RECORDS SUMMARY | 2022-02-22 23:26 | XMS_ITS | Encounter Summary ---
:1950 Author Organization [facility] [place] [address] Care Team Providers Name Role Phone Lexus Lawson APRN Primary Care Provider Reason for Visit Treatment/Therapy Plan Authorization (Routine) - Authorized Specialty Diagnoses / Procedures Referred By Contact Refer red To Contact Diagnoses Anemia of chronic renal failure, stage 4 (severe) [facility] 2m [facility] Med Infusion 3d Procedures TC IRON SUCROSE, 1MG, INJECTION (VENOFER) J1756 [place] [address] [address] [place] [address] Phone: Fax: Referral ID Status Reason Start Date Expiration Date Visits V isits Requested Authorized [id number] Authorized 11/29/2021 11/29/2022 99 99 Encounter Details Date Type Department Care Team Description 12/24/2021 Hospital Encounter Med Infusion at [facility] Anemia of chronic renal [facility] failure, stage 4 Drive (severe) [place] [address] Social History Tobacco Use Types Packs/Day [...] on file documented as of this encounter Last Filed Vital Signs Vital Sign Reading Time Taken Comments Blood Pressure 140/51 12/24/2021 2:43 PM EDT Pulse 71 12/24/2021 2:43 PM EDT Temperature 36.4 ??C (97.5 ??F) 12/24/2021 2:43 PM EDT Respiratory Rate 16 12/24/2021 2:43 PM EDT Oxygen Saturation 97% 12/24/2021 2:43 PM EDT Inhaled Oxygen Concentration - - Weight 46.4 kg (102 lb 6.4 oz) 12/24/2021 2:43 PM EDT Height - - Body Mass Index 20 10/30/2021 1:00 PM EDT documented in this encounter Medications at Time of Discharge [...] (E.C.) daily. documented as of this encounter Progress Notes Win Martinez RN - 12/24/2021 3:11 PM EDT MEDICAL INFUSION NOTES: DIAGNOSIS: 1. Anemia of chronic renal failure, stage 4 (severe) REASON FOR VISIT: Iron Sucrose Infusion No Known Allergies SUBJECTIVE: Offers no complaints. OBJECTIVE: Today is dose 1/3 weekly doses Patient stated that she has had iron in the past Yeah I've had it, got it in the [place] and they pushed it with saline real fast and the next thing I knew I woke up in an ambulance headed to [facility] and there I stayed 22 days. This administrative underwriter reassured patient that the amount she was receiving today was appropriate for the length of her infusion and shouldn't have any issues. Patient felt relieved VITAL SIGNS: BP 140/51 (BP Location (NBP): Left arm, Patient Position: Sitting, BP Cuff Sizes: Adult (25-34 cm)) Pulse 71 Temp 36.4 ??C (97.5 ??F) (Temporal) Resp 16 Wt 46.4 kg (102 lb 6.4 oz) SpO2 97% BMI 20.00 kg/m?? IF PAIN >5, INTERVENTION AND EFFECTIVENESS: N/A LAB DATA: No results found for this or any previous visit (from the past 24 hour(s)). IV ACCESS: Peripheral IV Line - Single Lumen 12/24/21 1510 median cubital vein (antecubital fossa), left 24 gauge;3/4 in length (Active) Indication/Daily Review of Necessity medication therapy intermittent 12/24/21 1512 Site Preparation/Maintenance site cleansed: chlorhexidine solution;dressing: transparent semipermeable applied 12/24/21 151 Patency/Maintenance blood return, able to obtain;flushed without difficulty 12/24/21 151 Phlebitis 0-->no symptoms 12/24/21 151 Infiltration 0-->no symptoms 12/24/21 151 HYDRATION: N/A ANTIEMETICS/PREMEDS: N//A Patient identification and orders checked against actual dose given at bedside by Win Martinez RN MEDICATION/TREATMENT: Iron Sucrose 200 mg IVP (mixed in 50 ml of NS) Administration times: See MAR Patient refused post iron infusion 30 minute observation period. Patient educated on potential s/sx of reaction & aware documentation will be made in chart. Patient verbalized understanding. REACTIONS None. ASSESSMENT: Awake and alert - tolerated treatment well. PLAN: Next infusion due in one week. documented in this encounter Plan of Treatment Scheduled Procedures Name Priority Associated Diagnoses Date/Time EGD, UPPER GI ENDOSCOPY Gastroesophageal reflux disease, esophagitis presence not specifi ed documented as of this encounter Visit Diagnoses Diagnosis Anemia of chronic renal failure, stage 4 (severe) documented in this encounter Administered Medications Inactive Administered Medications - up to 3 most recent administrations Medication Order MAR Action Action Date Dose Rate Site iron sucrose (Venofer) (20 mg/mL) Given 12/24/2021 3:10 PM EDT 2 00 mg for slow IV push 200 mg 200 mg, Intravenous, ONCE, 1 dose, On Thu12/24/21 at 1500, Administer over 5 Minutes, Patients should be closely monitored for signs of hypersensitivity during and for at least 30 min after each administration. The observation period is not needed for patients who have demonstrated tolerability. documented in this encounter Care Teams Projection Camera Operator Relationship Specialty Start Date End Date Lexus Lawson APRN PCP - General Geriatric Medicine 12/24/[address] [place] [place] [address] documented as of this encounter
--- OUTSIDE RECORDS SUMMARY | 2022-02-22 23:26 | XMS_ITS | Encounter Summary ---
:1950 Author Organization [facility] [place] [address] Care Team Providers Name Role Phone Sanjuanita Lee MD Primary Care Provider Encounter Details Date Type Department Care Team Description 11/29/2021 Telephone Nephrology Hypertension at Jessenia Montana, [facility] [place] [address] Social History Tobacco Use Types Packs/Day [...] Telephone Encounter - Eva Montana RN - 11/29/2021 11:36 AM EDT S/O: Call to Joselyn to discuss iron studies not available at the time of her clinic visit. Jami has had a prior bad experience with Venofer infusions related to the saline resulting in 5 day hospital stay. Presented possibility of Venofer 200 mg as it can be given IV push rather than in a saline infusion. Rodolfo asked if first doses could be given at [facility] then transferring up to [facility]: Jami and Rodolfo will consider the risks and benefits of IV Venofer and will call us with their decision. Addendum: Jami called and would like to move forward with the Venofer 200 mg IV push. Therapy plan pended for Dr Kemp documented in this encounter Plan of Treatment Scheduled Procedures Name Priority Associated Diagnoses Date/Time EGD, UPPER GI ENDOSCOPY Gastroesophageal reflux disease, esophagitis presence not specifi ed documented as of this encounter Visit Diagnoses Not on filedocumented in this encounter Care Teams Flask Fitter Relationship Specialty Start Date End Date Sanjuanita Lee MD PCP - General 03/05/13 12/23/[address] [place] [address] documented as of this encounter
--- OUTSIDE RECORDS SUMMARY | 2022-02-22 23:26 | XMS_ITS | Encounter Summary ---
:1950 Author Organization [facility] [place] [address] Care Team Providers Name Role Phone Lexus Lawson APRN Primary Care Provider Reason for Visit Treatment/Therapy Plan Authorization (Routine) - Authorized Specialty Diagnoses / Procedures Referred By Contact Refer red To Contact Diagnoses Anemia of chronic renal failure, stage 4 (severe) [facility] Med Infusion 3d Procedures TC IRON SUCROSE, 1MG, INJECTION (VENOFER) [address] [place] [address] [address] [place] [address] Phone: Fax: Referral ID Status Reason Start Date Expiration Date Visits V isits Requested Authorized [id number] Authorized 11/29/2021 11/29/2022 99 99 Encounter Details Date Type Department Care Team Description 12/31/2021 Hospital Encounter Med Infusion at [facility] Anemia of chronic renal [facility] failure, stage 4 Drive (severe) [place] [address] Social History Tobacco Use Types Packs/Day [...] Sign Reading Time Taken Comments Blood Pressure 132/63 12/31/2021 1:51 PM EDT Pulse 78 12/31/2021 1:51 PM EDT Temperature 36.3 ??C (97.4 ??F) 12/31/2021 1:51 PM EDT Respiratory Rate 16 12/31/2021 1:51 PM EDT Oxygen Saturation 96% 12/31/2021 1:51 PM EDT Inhaled Oxygen Concentration - - Weight 46.4 kg (102 lb 3.2 oz) 12/31/2021 1:51 PM EDT Height - - Body Mass Index 19.96 10/30/2021 1:00 PM EDT documented in this [...] encounter Progress Notes Win Martinez RN - 12/31/2021 2:12 PM EDT MEDICAL INFUSION NOTES: DIAGNOSIS: 1. Anemia of chronic renal failure, stage 4 (severe) REASON FOR VISIT: Iron Sucrose Infusion No Known Allergies SUBJECTIVE: Offers no complaints. OBJECTIVE: Receives on regular basis and tolerates well VITAL SIGNS: BP 132/63 (BP Location (NBP): Left arm, Patient Position: Sitting, BP Cuff Sizes: Adult (25-34 cm)) Pulse 78 Temp 36.3 ??C (97.4 ??F) (Temporal) Resp 16 Wt 46.4 kg (102 lb 3.2 oz) SpO2 96% BMI 19.96 kg/m?? IF PAIN >5, INTERVENTION AND EFFECTIVENESS: N/A LAB DATA: No results found for this or any previous visit (from the past 24 hour(s)). IV ACCESS: Peripheral IV Line - Single Lumen 12/31/21 1410 cephalic vein (lateral side of arm), right 24 gauge;3/4 in length (Active) Indication/Daily Review of Necessity medication therapy intermittent 12/31/21 1411 Site Preparation/Maintenance site cleansed: chlorhexidine solution;dressing: transparent semipermeable applied 12/31/21 141 Phlebitis 0-->no symptoms 12/31/21 1411 Infiltration 0-->no symptoms 12/31/21 141 HYDRATION: N/A ANTIEMETICS/PREMEDS: N/A Patient identification and orders checked against actual dose given at bedside by Win Martinez MORTGAGE SALES MANAGER/TREATMENT: Iron Sucrose 200 mg IV (mixed in 50 ml NS) Administration times: See MAR Patient refused post iron infusion 30 minute observation period. Patient educated on potential s/sx of reaction & aware documentation will be made in chart. Patient verbalized understanding. REACTIONS None. ASSESSMENT: Awake and alert - tolerated treatment well. PLAN: Next infusion due on 01/08/22. documented in this encounter Plan of Treatment [...] Site iron sucrose (Venofer) (20 mg/mL) Given 12/31/2021 2:10 PM EDT 2 00 mg for slow IV push 200 mg 200 mg, Intravenous, ONCE, 1 dose, On Thu12/31/21 at 1415, Administer over 5 Minutes, Patients should be closely monitored for signs of hypersensitivity during and for at least 30 min after each administration. The observation period is not needed for patients who have demonstrated tolerability. documented in this encounter Care Teams Chief Merchandising Officer Relationship Specialty Start Date End Date Lexus Lawson APRN PCP - General Geriatric Medicine 12/24/[address] [place] [address] documented as of this encounter
--- OUTSIDE RECORDS SUMMARY | 2022-02-22 23:26 | XMS_ITS | Encounter Summary ---
:1950 Author Organization [facility] [place] [address] Care Team Providers Name Role Phone Sanjuanita Lee MD Primary Care Provider Encounter Details Date Type Department Care Team Description 11/01/2021 Telephone Nephrology Hypertension at Jessenia Montana [facility] [place] [address] Social History Tobacco Use Types Packs/Day [...] Telephone Encounter - Eva Montana RN - 11/01/2021 10:46 AM EDT LM for patient to try and coordinate NM Renal function study with 11/28 nephrology appointment documented in this encounter Plan of Treatment Scheduled Procedures Name Priority Associated Diagnoses Date/Time EGD, UPPER GI ENDOSCOPY Gastroesophageal reflux disease, esophagitis presence not specifi ed documented as of this encounter Visit Diagnoses Not on filedocumented in this encounter Care Teams Brine Purifier Relationship Specialty Start Date End Date Sanjuanita Lee MD PCP - General 03/05/13 12/23/[address] [place] [address] documented as of this encounter
--- OUTSIDE RECORDS SUMMARY | 2022-02-22 23:26 | XMS_ITS | Encounter Summary ---
:1950 Author Organization [facility] [place] [address] Care Team Providers Name Role Phone Sanjuanita Lee MD Primary Care Provider Encounter Details Date Type Department Care Team Description 11/28/2021 Laboratory Appointment Lab 3L [facility] CKD ([facility] kidney [facility] disease) stage 4, GFR [facility] 15-29 ml/ [place] [id number] Social History Tobacco Use Types Packs/Day Years [...] Procedure Name Priority Date/Time Associated Comments Diagnosis HC PROTEIN, Routine 11/28/2021 11:36 CKD (chronic [...] in GFR 15-29 ml/min the results section. DIFFERENTIAL, Routine 11/28/2021 11:31 CKD (chronic kidney Res ults for this AUTOMATED AM EDT disease) stage 4, procedure are in GFR 15-29 ml/min the results section. GOLD TUBE HOLD Routine 11/28/2021 11:31 CKD (chronic kidney Re sults for this AM EDT disease) stage 4, procedure are in GFR 15-29 ml/min the results section. IRON AND TIBC Routine 11/28/2021 11:31 Results fo r this AM EDT procedure are i n the results section. HC CBC,PLT & AUTO Routine 11/28/2021 11:31 CKD (chronic kidney DIFF AM EDT disease) stage 4, GFR 15-29 ml/min HC URIC ACID, SERUM Routine 11/28/2021 11:31 [...] procedure are i n the results section. HC ALBUMIN, SERUM Routine 11/28/2021 11:31 CKD (chronic kidney Results for this AM EDT disease) stage 4, procedure are in GFR 15-29 ml/min the results section. BASIC METABOLIC PANEL Routine 11/28/2021 11:31 CKD (chronic ki dney Results for this (NON-FASTING) AM EDT disease) stage 4, procedure are in GFR 15-29 ml/min the results section. documented in this encounter Results (ABNORMAL) Protein/Creatinine Ratio, urine (11/28/2021 11:36 AM EDT) athologist Signature U Creatinine 43 mg/dL [facility] U Protein Ran 96 (H) 0 - 12 [facility] mg/[facility] Prot/Cre Ratio 2.2 ratio [facility] Specimen Anatomical Collection Method Collection Time Receive d Time (Source) Location / / Volume Laterality Urine 11/28/2021 11:36 11/28/2021 AM EDT 11:56 AM EDT Resulting Agency Comment Spec In Lab Tyron Kemp MD URINE ORDERABLES Performing Organization Address City/[facility]/ZIP [facility] [place] [address] Ferritin (11/28/2021 11:31 AM EDT) athologist Signature Ferritin 76 30 - 400 [facility] ng/mL [facility] Comment: Pediatric reference ranges not verified at [facility], interpret with caution. Reference ranges for females greater letty n 50 years of age approach values for men, i.e., 30-400 ng/mL. Specimen Anatomical Collection Method Collection Time Receive d Time (Source) Location / / Volume Laterality Blood No Charge / 11/28/2021 11:31 11/28/2021 Unknown AM EDT 11:38 AM EDT Resulting Agency Comment Spec In Lab Tyron Kemp MD CHEMISTRY ORDERABLES Performing Organization Address City/[facility] [place] [address] (ABNORMAL) Iron and TIBC (11/28/2021 11:31 AM EDT) athologist Signature Iron 24 (L) 30 - 150 [facility] mcg/dL [facility] TIBC 259 250 - 450 [facility] mcg/dL [facility] Iron Saturation 9 (L) 20 - 50 % [facility] Specimen Anatomical Collection Method Collection Time Receive d Time (Source) Location / / Volume Laterality Blood Venous Draw / 11/28/2021 11:31 11/28/2021 Unknown AM EDT 11:39 AM EDT Resulting Agency Comment Spec In Lab Tyron Kemp MD CHEMISTRY ORDERABLES Performing Organization Address City/State/ZIP Code Phon e Number [address] (ABNORMAL) Differential, Automated (11/28/2021 11:31 AM EDT) [facility] Method Time Signature Neutrophils % 63.1 % [facility] Neutr Abs (ANC) 5.26 1.70 - [facility] 6.10 [facility] x10(3)/[facility] LABORATORY Lymphocytes % 12.5 % [facility] Lymphocytes Abs 1.0 0.9 - 3.2 [facility] x10(3)/[facility] LABORATORY Monocytes % 15.7 % [facility] Monocyte Abs 1.3 (H) 0.3 - 0.9 [facility] x10(3)/[facility] LABORATORY Eosinophils % 7.4 % [facility] Eosinophils Abs 0.6 (H) 0.0 - 0.4 [facility] x10(3)/[facility] LABORATORY Basophils % 0.8 % [facility] Basophils Abs 0.1 0.0 - 0.1 [facility] x10(3)/[facility] LABORATORY Immature Gran % 0.50 % [facility] Comment: Immature granulocytes(IG's)percentage an d absolute count will include metamyelocytes, myelocytes, and promyelo cytes. Blood smears from CBCs yielding IG's will be scanned manually for concor dance. If this scan disagrees with the automated IG or if promyelocytes are not ed, a manual differential will be performed. Blanca Gran Abs 0.04 0.00 - 0.04 x10(3)/[facility] LABORATORY Specimen Anatomical Collection Method Collection Time Receive d Time (Source) Location / / Volume Laterality Blood 11/28/2021 11:31 11/28/2021 AM EDT 11:36 AM EDT Resulting Agency Comment Spec In Lab Tyron Kemp MD HEMATOLOGY ORDERABLES Performing Organization Address City/[facility]/ZIP Code Phon e Number [address] (ABNORMAL) Hemogram (11/28/2021 11:31 AM EDT) Analysis Performed At Patho logist Time Signature WBC 8.3 4.0 - 9.5 [facility] x10(3)/[facility] LABORATORY RBC 3.47 (L) 4.00 - [place] 5.21 [facility] x10(6)/[facility] LABORATORY Hemoglobin 9.0 (L) 11.7 - [facility] 15.5 g/dL [facility] Hematocrit 27.8 (L) 35.7 - [facility] 45.8 % [facility] MCV 80.1 (L) 82.6 - [facility] 94.4 [facility] LABORATORY MCH 25.9 (L) 27.1 - [facility] 32.0 pg [facility] MCHC 32.4 31.7 - [facility] 35.0 g/dL [facility] Platelets 361 (H) 145 - 357 [facility] x10(3)/[facility] LABORATORY RDWSD 51.2 (H) 37.0 - [facility] 46.0 [facility] LABORATORY RDWCV 17.3 (H) 11.5 - [facility] 14.1 % [facility] MPV 9.3 7.6 - 12.9 [facility] LABORATORY nRBC % Auto 0.0 % [facility] nRBC Abs Auto 0.000 0.000 - [facility] 0.000 [facility] x10(3)/[facility] LABORATORY Specimen Anatomical Collection Method Collection Time Receive d Time (Source) Location / / Volume Laterality Blood 11/28/2021 11:31 11/28/2021 AM EDT 11:36 AM EDT Resulting Agency Comment Spec In Lab Tyron Kemp MD HEMATOLOGY ORDERABLES Performing Organization Address City/State/ZIP [place] [address] (ABNORMAL) Basic Metabolic Panel (non-fasting) (11/28/2021 11:31 AM EDT) P athologist Signature Glucose Lvl 76 65 - 199 [facility] mg/dL [facility] Comment: Diabetes: >=200 mg/dL plus symp toms BUN 34 (H) 8 - 18 mg/dL [facility] Creatinine 2.67 (H) 0.70 - 1.20 mg/dL [facility] Sodium 136 135 - 145 mmol/L [facility] Potassium 4.4 3.5 - 5.0 mmol/L [facility] Comment: Please note: ??Patients with WBC >100,00 0 may have falsely elevated Potassium levels. ??For accurate Potassium quantif ication in these patients send serum separator tube (gold top) for subsequent determinations. ??Contact the Clinical Chemistry Laboratory if there are any qu estions. Chloride 98 98 - 107 mmol/L [facility] CO2 26 22 - 31 mmol/L [facility] Anion Gap 12 5 - 15 mmol/L [facility] Calcium 8.8 8.5 - 10.5 mg/dL [facility] Estimated GFR 18 (L) >=60 mL/min/1.73 m?? [facility] Comment: This patient's estimated GFR was [...] Organization Address City/State/ZIP [place] [address] Phosphorus (11/28/2021 11:31 AM EDT) P athologist Signature Phosphorus 4.0 2.5 - 4.5 [place] mg/dL [facility] Specimen Anatomical Collection Method Collection Time Receive d Time (Source) Location / / Volume Laterality Blood 11/28/2021 11:31 11/28/2021 AM EDT 11:36 AM EDT Resulting Agency Comment Spec In Lab Tyron Kemp MD CHEMISTRY ORDERABLES Performing Organization Address City/[facility]/ZIP Code Phon e Number [address] Albumin Level (11/28/2021 11:31 AM EDT) P athologist Signature Albumin 3.9 3.2 - 5.2 [place] g/dL [facility] Specimen Anatomical Collection Method Collection Time Receive d Time (Source) Location / / Volume Laterality Blood 11/28/2021 11:31 11/28/2021 AM EDT 11:36 AM EDT Resulting Agency Comment Spec In Lab Tyron Kemp MD CHEMISTRY ORDERABLES Performing Organization Address City/State/ZIP [place] [address] (ABNORMAL) Uric acid (11/28/2021 11:31 AM EDT) athologist Signature Uric Acid 7.0 (H) 2.5 - 6.5 [place] mg/dL [facility] Specimen Anatomical Collection Method Collection Time Receive d Time (Source) Location / / Volume Laterality Blood 11/28/2021 11:31 11/28/2021 AM EDT 11:36 AM EDT Resulting Agency Comment Spec In Lab Tyron Kemp MD CHEMISTRY ORDERABLES Performing Organization Address City/State/ZIP [place] [address] (ABNORMAL) PTH (11/28/2021 11:31 AM EDT) P athologist Signature PTH 100 (H) 15 - 65 [place] pg/mL [facility] Specimen Anatomical Collection Method Collection Time Receive d Time (Source) Location / / Volume Laterality Blood 11/28/2021 11:31 11/28/2021 AM EDT 11:36 AM EDT Resulting Agency Comment Spec In Lab Tyron Kemp MD CHEMISTRY ORDERABLES Performing Organization Address City/State/ZIP Code Phon e Number [address] Gold Tube HOLD (11/28/2021 11:31 AM EDT) P athologist Signature Gold Hold Sample in [facility]. [facility] Specimen Anatomical Collection Method Collection Time Receive d Time (Source) Location / / Volume Laterality Blood 11/28/2021 11:31 11/28/2021 AM EDT 11:36 AM EDT Tyron Kemp MD CHEMISTRY ORDERABLES Performing Organization Address City/[facility]/ZIP [place] [address] documented in this encounter Visit Diagnoses Diagnosis CKD (chronic kidney disease) stage 4, GF R 15-29 ml/min Chronic kidney disease, Stage IV (severe ) documented in this encounter Care Teams Bench Assembler Battery Relationship Specialty Start Date End Date Sanjuanita Lee MD PCP - General 03/05/13 12/23/[address] [place] [address] documented as of this encounter
--- OUTSIDE RECORDS SUMMARY | 2022-02-22 23:26 | XMS_ITS | Encounter Summary ---
:1950 Author Organization [facility] [place] [address] Care Team Providers Name Role Phone Sanjuanita Lee MD Primary Care Provider Reason for Visit Diagnostic Test (Routine) - Closed Specialty Diagnoses / Procedures Referred By Contact Refer red To Contact Radiology Diagnoses Chronic kidney disease, unspecified CKD stage Tyron Kemp MD [facility] Rad Nuclear Med Procedures NM GFR Glomerular Filtration Rate Study [facility] [place] [address] [place] [address] Fax: Referral ID Status Reason Start Date Expiration Date Visits V isits Requested Authorized [id number] Closed Specialty 11/04/2021 05/07/2023 1 1 Service Requested Encounter Details Date Type Department Care Team Description 11/27/2021 Hospital Encounter Nuclear Medicine at Tyron Kemp Mary Hitchcock MD [facility] [place] [address] [place] [address] [phone] (Wo rk) Social History Tobacco Use Types [...] section. documented in this encounter Results NM Renal w Function Study (11/27/2021 1:41 [...] who have questions please contact the health body care manager that requested your imaging first. ? Electronically signed by: Lars Hernandez MD, [facility] ([phone]), at 11/28/2021 12:01 PM Narrative 11/28/2021 12:01 [...] ho have questions please contact the health body care manager that requested your imaging first. Electronically signed by: Lars Hernandez MD, [facility] ([phone]), at 11/28/2021 12:01 PM Tyron Kemp MD [...] who have questions please contact the health body care manager that requested your imaging first. ? Electronically signed by: Lars Hernandez MD, [facility] ([phone]), at 11/28/2021 12:01 PM Narrative 11/28/2021 12:01 [...] ho have questions please contact the health body care manager that requested your imaging first. Electronically signed by: Lars Hernandez MD, [facility] ([phone]), at 11/28/2021 12:01 PM Tyron Kemp MD IMG NM ORDERABLES documented in this encounter Visit Diagnoses Not on filedocumented in this encounter Care Teams Full Time Staff Interpreter Relationship Specialty Start Date End Date Sanjuanita Lee MD PCP - General 03/05/13 12/23/[address] [place] [address] documented as of this encounter
--- OUTSIDE RECORDS SUMMARY | 2022-02-22 23:26 | XMS_ITS | Encounter Summary ---
:1950 Author Organization [facility] [place] [address] Care Team Providers Name Role Phone SeraLexus doran KYRA Primary Care Provider Encounter Details Date Type Department Care Team Description 01/30/2022 Telephone Nephrology Hypertension at Jess[place], [facility] [place] [address] Social History Tobacco Use Types Packs/Day [...] Telephone Encounter - Eva Montana RN - 01/30/2022 8:48 AM EDT S/O: Message received from Charlene to let us know that she completed her Venofer infusions and asking when to have labs rechecked. P: Above sent to Dr Kemp for review documented in this encounter Plan of Treatment Scheduled Procedures Name Priority Associated Diagnoses Date/Time EGD, UPPER GI ENDOSCOPY Gastroesophageal reflux disease, esophagitis presence not specifi ed documented as of this encounter Visit Diagnoses Not on filedocumented in this encounter Care Teams Change Advisor Relationship Specialty Start Date End Date Lexus Lawson APRN PCP - General Geriatric Medicine 12/24/[address] [place] [address] documented as of this encounter
--- OUTSIDE RECORDS SUMMARY | 2022-02-22 23:26 | XMS_ITS | Encounter Summary ---
:1950 Author Organization [facility] [place] [address] Care Team Providers Name Role Phone Lexus Lawson APRN Primary Care Provider Encounter Details Date Type Department Care Team Description 11/29/2021 Orders Only Nephrology Hypertension at Jessenia [place], [facility] [place] [address] Social History Tobacco Use Types Packs/Day [...] on filedocumented in this encounter Care Teams Peripheral Equipment Operator Relationship Specialty Start Date End Date Lexus Lawson APRN PCP - General Geriatric Medicine 12/24/[address] [place] [address] documented as of this encounter
--- OUTSIDE RECORDS SUMMARY | 2022-02-22 23:26 | XMS_ITS | Encounter Summary ---
:1950 Author Organization [facility] [place] [address] Care Team Providers Name Role Phone Sanjuanita Lee MD Primary Care Provider Reason for Referral Diagnostic Test (Routine) - New Request Specialty Diagnoses / Procedures Referred By Contact Refer red To Contact Radiology Diagnoses Abdominal aortic aneurysm (AAA) without rupture Regan Trevizo MD [facility] Rad Ct Scan Procedures CT Abdomen & Pelvis wo Contrast [facility] [place] [address] [place] [address] Referral ID Status Reason Start Expiration Visits Visits Date Date Requested Authorized [id number] New Request Specialty 10/30/2021 05/02/2023 1 1 Service Requested iagnostic Test (Routine) - New Request Specialty Diagnoses / Procedures Referred By Contact Refer red To Contact Diagnoses Abdominal aortic aneurysm (AAA) without rupture Regan Trevizo MD [facility] Vascular Lab 3v Procedures Endo-vascular AAA repair [facility] [place] [address] [place] [address] Referral ID Status Reason Start Expiration Visits Visits Date Date Requested Authorized [id number] New Request Specialty 10/30/2021 10/30/2022 1 1 Service Requested iagnostic Test (Routine) - New Request Specialty Diagnoses / Procedures Referred By Contact Refer red To Contact Diagnoses Renal artery stenosis, [place] Regan Trevizo MD [facility] Vascular Lab 3v Procedures Duplex Study Visceral Arteries, Comp [facility] [place] [address] [place] [address] Referral ID Status Reason Start Expiration Visits Visits Date Date Requested Authorized [id number] New Request Specialty 10/30/2021 10/30/2022 1 1 Service Requested Encounter Details Date Type Department Care Team Description 10/30/2021 Orders [facility] ominal aortic aneurysm (AAA) without rupture; [facility] D, TANK TRUCK LOADER Renal artery stenosis[place] [address] Social History Tobacco Use Types Packs/Day [...] Type Priority Associated Diagnoses Order S chedule CT Abdomen & Pelvis wo Imaging Routine Abdominal aortic E xpected: 05/02/2022 Contrast aneurysm (AAA) without (Appr oximate), rupture Expires: 2023 Scheduled Procedures Name Priority Associated Diagnoses Date/Time EGD, UPPER GI ENDOSCOPY Gastroesophageal reflux disease, esophagitis presence not specifi ed documented as of this encounter Visit Diagnoses Diagnosis Abdominal aortic aneurysm (AAA) without rupture Renal artery stenosis, [place] Atherosclerosis of renal artery documented in this encounter Care Teams Recreation Director Relationship Specialty Start Date End Date Sanjuanita Lee MD PCP - General 03/05/13 12/23/[address] [place] [address] documented as of this encounter
--- OUTSIDE RECORDS SUMMARY | 2022-02-22 23:26 | XMS_ITS | Encounter Summary ---
:1950 Author Organization [facility] [place] [address] Care Team Providers Name Role Phone Lexus Lawson APRN Primary Care Provider Encounter Details Date Type Department Care Team Description 01/07/2022 Ancillary Procedure Radiology [place] [id number] [place] [address] [id number] (Wo rk) Social History Tobacco Use Types [...] Procedure Name Priority Date/Time Associated Comments Diagnosis FILM LIBRARY STORAGE Routine 01/07/2022 8:10 PM R esults for this ONLY ULTRASOUND EDT procedure ar e in STUDY the results section. documented in this encounter Results Film Library- Storage Only Ultrasound Study (01/07/2022 8:10 PM EDT) Specimen (Source) Anatomical Location Collection Method / Collectio n Time Received Time / Laterality Volume Narrative BREE LORENZO - 01/07/2022 8:10 PM EDT This exam is auto-finalizing. It's purpo se is for storage only. Lexus Lawson APRN IMAmanda FILM LIBRARY ORDERABLES Performing Organization Address City/State/ZIP Code Phon e Number [place], [place] documented in this encounter Visit Diagnoses Not on filedocumented in this encounter Care Teams Fire Hydrant Operator Relationship Specialty Start Date End Date Lexus Lawson APRN PCP - General Geriatric Medicine 12/24/[address] [place] [address] documented as of this encounter
--- OUTSIDE RECORDS SUMMARY | 2022-02-22 23:26 | XMS_ITS | Encounter Summary ---
:1950 Author Organization [facility] [place] [address] Care Team Providers Name Role Phone Lexus Lawson APRN Primary Care Provider Reason for Visit Treatment/Therapy Plan Authorization (Routine) - Authorized Specialty Diagnoses / Procedures Referred By Contact Refer red To Contact Diagnoses Anemia of chronic renal failure, stage 4 (severe) [facility] Nephrology 2m [facility] Med Infusion 3d Procedures TC IRON SUCROSE, 1MG, INJECTION (VENOFER) [id number] [place] [address] [place] [address] Phone: Fax: Referral ID Status Reason Start Date Expiration Date Visits V isits Requested Authorized [id number] Authorized 11/29/2021 11/29/2022 99 99 Encounter Details Date Type Department Care Team Description 01/08/2022 Hospital Encounter Med Infusion at [facility] Anemia of chronic renal [facility] failure, stage 4 Drive (severe) [place] [address] Social History Tobacco Use Types Packs/Day [...] ??F) 01/08/2022 2:55 PM EDT Respiratory Rate - - Oxygen Saturation 97% 01/08/2022 2:55 PM EDT Inhaled Oxygen Concentration - - Weight 44.3 kg (97 lb 9.6 oz) 01/08/2022 2:55 PM EDT Height - - Body Mass Index 19.06 10/30/2021 1:00 PM EDT documented in this [...] documented as of this encounter Progress Notes Lexus Méndez RN - 01/08/2022 2:58 PM EDT MEDICAL INFUSION NOTES: DIAGNOSIS: 1. Anemia of chronic renal failure, stage 4 (severe) REASON FOR VISIT: Iron Sucrose Infusion 3/ No Known Allergies SUBJECTIVE: Offers no complaints. She is trying to get her provider to send orders to a closer facility. OBJECTIVE: Last Infusion on 12.31.21 Series of 3 weekly infusions VITAL SIGNS: BP 145/65 Pulse 65 Temp 36.8 ??C (98.2 ??F) Wt 44.3 kg (97 lb 9.6 oz) SpO2 97% BMI 19.06 kg/m?? IF PAIN >5, INTERVENTION AND EFFECTIVENESS: n/a LAB DATA: No results found for this or any previous visit (from the past 24 hour(s)). IV ACCESS: Peripheral IV Line - Single Lumen 01/08/22 1450 cephalic vein (lateral side of arm), right 24 gauge;3/4 in length (Active) Indication/Daily Review of Necessity medication therapy intermittent 01/08/221456 Site Preparation/Maintenance site cleansed: 70% alcohol 01/08/221456 Patency/Maintenance flushed without difficulty;blood return, able to obtain 01/08/221456 Phlebitis 0-->no symptoms 01/08/221456 Infiltration 0-->no symptoms 01/08/221456 HYDRATION: N/A ANTIEMETICS/PREMEDS: N/A Patient identification and orders checked against actual dose given at bedside by Lexus Méndez RN MEDICATION/TREATMENT: Iron Sucrose 200 mg IV in 50mL NS Administration times: See MAR Patient refused post iron infusion 30 minute observation period. Patient educated on potential s/sx of reaction & aware documentation will be made in chart. Patient verbalized understanding. REACTIONS None. ASSESSMENT: Awake and alert - tolerated treatment well. PLAN: Pt to follow up with provider. documented in this encounter Plan of Treatment [...] Site iron sucrose (Venofer) (20 mg/mL) Given 01/08/2022 2:52 PM EDT 2 00 mg for slow IV push 200 mg 200 mg, Intravenous, ONCE, 1 dose, On Thu01/08/22 at 1500, Administer over 5 Minutes, Patients should be closely monitored for signs of hypersensitivity during and for at least 30 min after each administration. The observation period is not needed for patients who have demonstrated tolerability. documented in this encounter Care Teams Treasury Analyst Relationship Specialty Start Date End Date Lexus Lawson APRN PCP - General Geriatric Medicine 12/24/[address] [place] [address] documented as of this encounter
--- OUTSIDE RECORDS SUMMARY | 2022-02-22 23:26 | XMS_ITS | Encounter Summary ---
:1950 Author Organization [facility] [place] [address] Care Team Providers Name Role Phone Sanjuanita Lee MD Primary Care Provider Encounter Details Date Type Department Care Team Description 10/15/2021 Telephone Vascular Surgery at [facility] Abbie Pineda PA [facility] [place] [address] [place] [address] VASCULAR SURGERY [phone] [place] [id number] (Wo rk) Social History Tobacco Use Types [...] this encounter Miscellaneous Notes Telephone Encounter - Abbie Pineda PA - 10/15/2021 11:56 AM EDT Received call from patient's PCP, , that patients Cr bumped to 3.8 today from 2.41 at discharge, and her Hb dropped to 8.2 today from 10 at time of discharge. PCP denies any hematoma or drainagefrom access sites, patient has no symptoms of abdominal pain, chest pain or dyspnea. Discussed with PCP unlikely acute anemia is related to blood loss, more likely anemia of chronic disease versus dilutional. Regarding new GAEL, I contacted patient's retail support manager's RN with lab values. RN will speak with Dr. Kemp this afternoon and schedule more urgent follow-up accordingly. Will reach out to Dr. Trevizo to determine any changes to current follow-up plan and imaging. Contacted patient to update her of the plan, nephrology clinic is arranging [facility]. Advised patient that I will call if there are any changes to her vascular follow-up plan. Instructed patient to call the clinic with any concerns prior to next appointment. Addendum: Will now have noncon CT with 1mm cut instead of CTA for follow-up on 10/30/21. REAGAN Andrade documented in this encounter Plan of Treatment Scheduled Procedures Name Priority Associated Diagnoses Date/Time EGD, UPPER GI ENDOSCOPY Gastroesophageal reflux disease, esophagitis presence not specifi ed documented as of this encounter Visit Diagnoses Not on filedocumented in this encounter Care Teams Beam Machine Operator Relationship Specialty Start Date End Date Sanjuanita Lee MD PCP - General 03/05/13 12/23/[address] [place] [address] documented as of this encounter
--- OUTSIDE RECORDS SUMMARY | 2022-02-22 23:26 | XMS_ITS | Encounter Summary ---
:1950 Author Organization [facility] [place] [address] Care Team Providers Name Role Phone Sanjuanita Lee MD Primary Care Provider Reason for Visit Diagnostic Test (Routine) - Closed Specialty Diagnoses / Procedures Referred By Contact Refer red To Contact Radiology Diagnoses Chronic kidney disease, unspecified CKD stage Tyron Kemp MD [facility] Rad Nuclear Med Procedures NM GFR Glomerular Filtration Rate Study [facility] [place] [address] [place] [address] Fax: Referral ID Status Reason Start Date Expiration Date Visits V isits Requested Authorized [id number] Closed Specialty 11/04/2021 05/07/2023 1 1 Service Requested Encounter Details Date Type Department Care Team Description 11/27/2021 Hospital Encounter Nuclear Medicine at Tyron Kemp Mary Hitchcock [facility] [place] [address] [place] [address] [phone] (Wo rk) Social History Tobacco Use Types [...] who have questions please contact the health behavioral health care coordinator that requested your imaging first. ? Electronically signed by: Lars Hernandez MD, [facility] ([phone]), at 11/28/2021 12:01 PM Narrative 11/28/2021 12:01 [...] ho have questions please contact the health behavioral health care coordinator that requested your imaging first. Electronically signed by: Lars Hernandez MD, [facility] ([phone]), at 11/28/2021 12:01 PM Tyron Kemp MD [...] who have questions please contact the health behavioral health care coordinator that requested your imaging first. ? Electronically signed by: Lars Hernandez MD, [facility] ([phone]), at 11/28/2021 12:01 PM Narrative 11/28/2021 12:01 [...] ho have questions please contact the health behavioral health care coordinator that requested your imaging first. Electronically signed by: Lars Hernandez MD, [facility] ([phone]), at 11/28/2021 12:01 PM Tyron Kemp MD IMG NM ORDERABLES documented in this encounter Visit Diagnoses Not on filedocumented in this encounter Care Teams Project Engineering Manager Relationship Specialty Start Date End Date Sanjuanita Lee MD PCP - General 03/05/13 12/23/[address] [place] [address] documented as of this encounter
--- OUTSIDE RECORDS SUMMARY | 2022-02-22 23:26 | XMS_ITS | Encounter Summary ---
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 CKD (chronic kidney disease) stage 4, GF R 15-29 ml/[place] [address] Social History Tobacco Use Types Packs/Day [...] a few glasses of wine, rarely 4 03/04/ 013 times a year Sex Assigned at Date Recorded Not on file documented as of this encounter Last Filed Vital Signs Vital Sign Reading Time Taken Comments Blood Pressure 133/53 11/28/2021 11:56 AM EDT Pulse 61 11/28/2021 11:56 AM EDT Temperature - - Respiratory Rate - - Oxygen Saturation - - Inhaled Oxygen Concentration - - Weight 45.4 kg (100 lb) 11/28/2021 11:44 AM EDT Height - - Body Mass Index 19.53 10/30/2021 1:00 PM EDT documented in this encounter Patient Instructions Patient InstructionsRashmi Vega RN - 11/28/2021 11:20 AM EDT The scans you had done yesterday have not been read yet. Dr. Kemp will discuss them with vascular and they will make a plan moving forward. Your hemoglobin is 9, which is lower than it was previously. Your iron stores are also really low. We know you are hesitant to take IV iron because you had a reaction previously. There is an option to administer it without any saline added to it. The other option would be to take oral iron 325mg twicedaily, cook your food in cast iron pans, and eat more spinach to try to increase your iron levels. Dr. Kemp is not concerned a lot about your blood pressure trends right now. Continue to keep trackof your blood pressures. Call if you feel differently (consistent symptoms of nausea, vomiting, little appeal for food, itching, change in sleep patterns, worsening energy levels, shortness of breath). These are some of the signs of worsening kidney function. We will see you sooner if you are not feeling well. Please call. Rsahmi Vega RN Chronic Kidney Disease Nurse Clinician [facility] Nephrology documented in this encounter Progress Notes Rashmi Vega RN - 11/28/2021 11:20 AM EDT [facility] [address] [place] [address] Reason for Clinic Visit: Systems Review and CKD management. Seen in clinic with: Rashmi Vega RN CKD Nurse Clinician CKD related to: uncontrolled HTN and renal ischemia Summary: History obtained by RN Specialist: Last seen in clinic 06/25/21 eGFR 25. She had her AAA repair. She had her Renal function scan yesterday. Present at appointment with her . He notes that she is weaker than she was before she had the recent surgeries, and she is more wobbly. Her cognition has changed since then as well. Review of Systems: Sign/Symptom Comments Activity level/fatigue: Good - hasn't walked a lot this year but is working in the gardens and keeping house Change in sleep patterns: Sleep is better with the trazodone. Sometimes cuts the tablet in half if she's already tired after doing a lot during the day Nocturia: 0-1x Appetite changes: Good Food aversions: None specific- everything tastes bland Nausea: None Vomiting: None Bowels: No issues Edema: None Shortness of breath: None Orthopnea/PND: No PND - 2 pillows Muscle Cramping: Resolved for now - Leg cramps particularly feet at night. Recommended bar of soap in the bed but didn't help Cold intolerance: Yes - all the time Itching: None Bruising/bleeding: Easy bruising - no unusual bleeding Mental Status Changes: None - reports improving concentration - about 90%. Has trouble remembering names. has noticed difficulty with cognition after last two procedures and the anesthesia Recent Home Blood Pressure Control: Takes 3x weekly - brought in logs - Average 130-140 systolic Recent Lipid Management: On Atorvastatin Recent Diabetic Management Not a diabetic Additional CCM Comments: How's your health been in the last 4 weeks: Poor, Fair, Good, Very Good, Excellent Advanced Directives: on file in eD-H Social Determinant Date/Comments Food Security/ Nutritional Education Low Sodium diet Stable Housing/ Safety Concerns Lives with Community Supports/ Transportation issues/ Appointment coordination Drives - [address] [facility] Functional Status/ Assistive devices Independent Learning Style/Considerations Engagement/Readiness to learn or change Hands on learner Financial/Insurance concerns 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 Pneumococcal Polyvalent 23 05/18/2015 ?? Td Vaccine, Absorbed, PF, Adult 05/20/2011 Education: Sodium restriction Anticipated Renal Replacement Therapy Plan: 05/24/19 - Pre emptive transplant 06/27/20 - Has no interest in discussing dialysis Transplant Evaluation: 05/24/19 - Completed Transplant information session. Has potential living donors identified. 06/27/20 - Has been deemed not a candidate by [facility] transplant. Discussed other transplant program options but eGFR >20. Fistula Date/Type of Initial Access/Surgeon: PMH: Past Medical History: Diagnosis Date ??? AAA (abdominal aortic aneurysm) [id number] angiogram; 3.2 cm infrarenal ??? Constipation ??? Dyslipidemia ??? Hypertension ??? Insomnia ??? Peripheral vascular disease ??? Renal artery stenosis R; per 2009 angiogram ??? SBO (small bowel obstruction) ALLERGIES: No Known Allergies MEDICATIONS: Current Outpatient Medications Medication Sig Dispense Refill ??? traZODone (DESYREL) 150 mg Tablet TAKE ONE TABLET BY MOUTH AT BEDTIME NEEDED FOR SLEEP ??? carvediloL (Coreg) 12.5 mg Tablet Take 1 tablet by mouth 2 times daily (with meals). 180 tablet 3 ??? hydrALAZINE (Apresoline) 25 mg Tablet Take 1 tablet by mouth 3 times daily. 270 tablet 3 ??? isosorbide dinitrate (ISORDIL) 20 mg Tablet Take 1 tablet by mouth 3 times daily. 270 tablet 3 ??? levothyroxine (Synthroid) 75 mcg Tablet Take 1 tablet by mouth daily. 90 tablet 3 ??? amLODIPine (Norvasc) 5 mg Tablet Take 1 tablet by mouth daily. 90 tablet 1 ??? cimetidine (TAGAMET) 400 mg Tablet Take 400 mg by mouth 2 times daily. ??? furosemide (Lasix) 20 mg Tablet Take 20 mg by mouth 2 times daily. Takes at 0800 and 1600 ??? gabapentin (NEURONTIN) 100 mg Capsule Take 300 mg by mouth nightly. ??? atorvastatin (LIPITOR) 20 mg Tablet Take 1 tablet by mouth every evening. 90 tablet 3 ??? cloNIDine (CATAPRES) 0.1 mg Tablet Take 1 tablet by mouth every 8 hours as needed (Please take 1tablet, if systolic blood pressure is >200). 30 tablet 3 ??? acetaminophen (TYLENOL) 500 mg Tablet Take 1 tablet by mouth every 6 hours. 30 tablet 1 ??? aspirin 81 mg Tablet, Delayed Release (E.C.) Take 81 mg by mouth daily. No current facility-administered medications for this visit. PHYSICAL EXAM: Vitals: 11/28/21 1144 11/28/21 1156 BP: 133/53 Pulse: 61 Weight: 45.4 kg (100 lb) Body mass index is 19.53 kg/m??. Check if examined Findings General appearance Head Eyes ENT Neck Respiratory COR/Vascular Abdomen Skin Neuro Asterixis Extremities Other Recent Results (from the past 336 hour(s)) Gold Tube HOLD Collection Time: 11/28/21 11:31 AM Result Value Ref Range Gold Hold Sample in lab. PTH Collection Time: 11/28/21 11:31 AM Result Value Ref Range PTH 100 (H) 15 - 65 pg/mL Uric acid Collection Time: 11/28/21 11:31 AM Result Value Ref Range Uric Acid 7.0 (H) 2.5 - 6.5 mg/dL Albumin Level Collection Time: 11/28/21 11:31 AM Result Value Ref Range Albumin 3.9 3.2 - 5.2 g/dL Phosphorus Collection Time: 11/28/21 11:31 AM Result Value Ref Range Phosphorus 4.0 2.5 - 4.5 mg/dL Basic Metabolic Panel (non-fasting) Collection Time: 11/28/21 11:31 AM Result Value Ref Range Glucose Lvl 76 65 - 199 mg/dL BUN 34 (H) 8 - 18 mg/dL Creatinine 2.67 (H) 0.70 - 1.20 mg/dL Sodium 136 135 - 145 mmol/L Potassium 4.4 3.5 - 5.0 mmol/L Chloride 98 98 - 107 mmol/L CO2 26 22 - 31 mmol/L Anion Gap 12 5 - 15 mmol/L Calcium 8.8 8.5 - 10.5 mg/dL Estimated GFR 18 (L) >=60 mL/min/1.73 m?? Hemogram Collection Time: 11/28/21 11:31 AM Result Value Ref Range WBC 8.3 4.0 - 9.5 x10(3)/mcL RBC 3.47 (L) 4.00 - 5.21 x10(6)/mcL Hemoglobin 9.0 (L) 11.7 - 15.5 g/dL Hematocrit 27.8 (L) 35.7 - 45.8 % MCV 80.1 (L) 82.6 - 94.4 fL MCH 25.9 (L) 27.1 - 32.0 pg MCHC 32.4 31.7 - 35.0 g/dL Platelets 361 (H) 145 - 357 x10(3)/mcL RDWSD 51.2 (H) 37.0 - 46.0 fL RDWCV 17.3 (H) 11.5 - 14.1 % MPV 9.3 7.6 - 12.9 fL nRBC % Auto 0.0 % nRBC Abs Auto 0.000 0.000 - 0.000 x10(3)/mcL Differential, Automated Collection Time: 11/28/21 11:31 AM Result Value Ref Range Neutrophils % 63.1 % Neutr Abs (ANC) 5.26 1.70 - 6.10 x10(3)/mcL Lymphocytes % 12.5 % Lymphocytes Abs 1.0 0.9 - 3.2 x10(3)/mcL Monocytes % 15.7 % Monocyte Abs 1.3 (H) 0.3 - 0.9 x10(3)/mcL Eosinophils % 7.4 % Eosinophils Abs 0.6 (H) 0.0 - 0.4 x10(3)/mcL Basophils % 0.8 % Basophils Abs 0.1 0.0 - 0.1 x10(3)/mcL Immature Gran % 0.50 % Blanca Gran Abs 0.04 0.00 - 0.04 x10(3)/mcL Iron and TIBC Collection Time: 11/28/21 11:31 AM Result Value Ref Range Iron 24 (L) 30 - 150 mcg/dL TIBC 259 250 - 450 mcg/dL Iron Saturation 9 (L) 20 - 50 % Ferritin Collection Time: 11/28/21 11:31 AM Result Value Ref Range Ferritin 76 30 - 400 ng/mL Protein/Creatinine Ratio, urine Collection Time: 11/28/21 11:36 AM Result Value Ref Range U Creatinine 43 mg/dL U Protein Ran 96 (H) 0 - 12 mg/dL Prot/Cre Ratio 2.2 ratio ASSESSMENT AND PLAN: Problem: Chronic Kidney Disease Estimated GFR (mL/min/1.73 m??) Date Value 11/28/2021 18 (L) 10/30/2021 16 (L) 10/07/2021 19 (L) CKD Stage 4 Potassium Date Value Ref Range Status 11/28/2021 4.4 3.5 - 5.0 mmol/L Final Comment: Please note: Patients with WBC >100,000 may have falsely elevated Potassium levels. For accurate Potassium quantification in these patients send serum separator tube (gold top) for subsequent determinations. Contact the Clinical Chemistry Laboratory if there are any questions. 10/07/2021 3.5 3.5 - 5.0 mmol/L Final Comment: Please note: Patients with WBC >100,000 may have falsely elevated Potassium levels. For accurate Potassium quantification in these patients send serum separator tube (gold top) for subsequent determinations. Contact the Clinical Chemistry Laboratory if there are any questions. 10/06/2021 3.7 3.5 - 5.0 mmol/L Final Comment: Please note: Patients with WBC >100,000 may have falsely elevated Potassium levels. For accurate Potassium quantification in these patients send serum separator tube (gold top) for subsequent determinations. Contact the Clinical Chemistry Laboratory if there are any questions. CO2 (mmol/L) Date Value 11/28/2021 26 10/07/2021 20 (L) 10/06/2021 23 Does not tolerate sodium bicarbonate Uric Acid (mg/dL) Date Value 11/28/2021 7.0 (H) 06/25/2021 7.1 (H) 02/19/2021 7.6 (H) not on allopurinol Standard Recommendations: Reduce rate of progression. Education for CKD stage- specific issues. RN Notes: Your kidney function is stable at this time. The scans you had done yesterday have not been read yet. Dr. Kemp will discuss them with vascular and they will make a plan moving forward. /SENIOR JAVA DATA ARCHITECT A/P: Problem: Management of Anemia related to Chronic Kidney Disease (CKD) Hemoglobin (g/dL) Date Value 11/28/2021 9.0 (L) Goal: 9.5-10.9 g/dl Ferritin (ng/mL) Date Value 11/28/2021 76 Goal: >100ng/ml Iron Saturation (%) Date Value 11/28/2021 9 (L) Goal: >20% LAKESHA: No IV Iron replacement therapy (Venofer), Last dose: Dec 2018??received 1 iron infusion - declines additional infusions RN Notes: Your hemoglobin is 9, which is lower than it was previously. Your iron stores are also really low. We know you are hesitant to take IV iron because you had a reaction previously. There is an option to administer it without any saline added to it. The other option would be to take oral iron 325mg twice daily, cook your food in cast iron pans, and eat more spinach to try to increase your ironlevels. MD/SENIOR JAVA DATA ARCHITECT A/P: Problem: Hypertension BP: (133)/(53) Goal (if urine alb:cr ratio is <30mg/g): </= 140/90 Goal (if urine alb:cr ratio is >30mg/g): </= 130/80 Standard Recommendations: Sodium intake < 2 Gm per day. RN Notes: Dr. Kemp is not concerned a lot about your blood pressure trends right now. Continue to keep track of your blood pressures. MD/SENIOR JAVA DATA ARCHITECT A/P: Problem: Proteinuria Prot/Cre Ratio (ratio) Date Value 11/28/2021 2.2 Goal: <0.2mg/mg RN Notes: None MD/SENIOR JAVA DATA ARCHITECT A/P: Problem: Bone and mineral metabolism 25-OH Vit D Total (ng/mL) Date Value 02/19/2021 46 01/09/2019 52 07/19/2018 35 not on vitamin D PTH (pg/mL) Date Value 11/28/2021 100 (H) 06/25/2021 77 (H) 02/19/2021 83 (H) not on calcitriol Goal: Stage 3: 35-70 pg/ml Stage 4: 70-110 pg/ml Stage 5: 150-300 pg/ml Phosphorus (mg/dL) Date Value 11/28/2021 4.0 10/03/2021 3.6 10/02/2021 4.1 Not on binder Goal: 2.7-4.6mg/dl Calcium (mg/dL) Date Value 11/28/2021 8.8 10/07/2021 8.3 (L) 10/06/2021 8.1 (L) Not on calcium supplement Goal: 8.5-10.5mg/dl RN Notes: None MD/SENIOR JAVA DATA ARCHITECT A/P: Problem: Nutrition Albumin (g/dL) Date Value 11/28/2021 3.9 10/03/2021 3.9 06/25/2021 4.5 Goal: >/= 4.0 gm/dl Body mass index is 19.53 kg/m??. Goal: 20-25 kg/m2 RN Notes: None MD/SENIOR JAVA DATA ARCHITECT A/P: Problem: Dyslipidemia No results found for: LDLCHOL Goal: <100 mg/dl No results found for: TRIG Goal: <150 mg/dl On atorvastatin 20 mg nightly RN Notes: None MD/SENIOR JAVA DATA ARCHITECT A/P: Time Attestation: Return to CKD clinic: 6 months Tyron Kemp MD - 11/28/2021 11:20 AM EDT 71-year-old female with history of CKD stage IV presents for care management. eGFR 18 mL/min improved over the previous month. Patient did undergo endograft repair of ruptured aortic aneurysm in September and did have a creatinine bump in the setting. She had prior left renal bypass. She had a nuclear med GFR scan done yesterday and depending on lateralization of GFR may require further intervention to optimize perfusion of bilateral kidneys. We will discuss this with vascular surgery. She is otherwise doing well. She is dealing with some degree of deconditioning following aneurysm rupture and her memory has not been as good. She is anemic and we will assess her iron stores. She did not tolerate IV iron replacement several years back. If replete well consider LAKESHA dosing. Blood pressure slightly higherbut remains acceptable for her degree of kidney disease. She has mild secondary hyperparathyroidism however calcium and phosphorus are acceptable. documented in this encounter Miscellaneous Notes Addendum Note - Tyron Kemp MD - 11/28/2021 11:20 AM EDT Addended by: TYRON KEMP on: 11/29/2021 02:50 PM Modules accepted: Orders documented in this encounter Plan of Treatment Scheduled Procedures Name Priority Associated Diagnoses Date/Time EGD, UPPER GI ENDOSCOPY Gastroesophageal reflux disease, esophagitis presence not specifi ed documented as of this encounter Visit Diagnoses Diagnosis Anemia, unspecified type CKD (chronic kidney disease) stage 4, GF R 15-29 ml/min Chronic kidney disease, Stage IV (severe ) documented in this encounter Care Teams Cardiopulmonary Technician Relationship Specialty Start Date End Date Sanjuanita Lee MD PCP - General 03/05/13 12/23/[address] [place] [address] documented as of this encounter
--- OUTSIDE RECORDS SUMMARY | 2022-02-22 23:26 | XMS_ITS | Encounter Summary ---
:1950 Author Organization [facility] [place] [address] Care Team Providers Name Role Phone Sanjuanita Lee MD Primary Care Provider Reason for Referral Diagnostic Test (Routine) - Closed Specialty Diagnoses / Procedures Referred By Contact Refer red To Contact Radiology Diagnoses Abdominal aortic aneurysm (AAA) without rupture Abbie Pineda PA [facility] Rad Ct Scan Procedures CT Chest Abdomen Pelvis wo Contrast [facility] [place] [address] [place] [address] Referral ID Status Reason Start Date Expiration Date Visits V isits Requested Authorized [id number] Closed Specialty 10/17/2021 12/15/2021 1 1 Service Requested Reason for Visit Diagnostic Test (Routine) - Closed Specialty Diagnoses / Procedures Referred By Contact Refer red To Contact Radiology Diagnoses Abdominal aortic aneurysm (AAA) without rupture Abbie Pineda PA [facility] Rad Ct Scan Procedures CT Chest Abdomen Pelvis wo Contrast [facility] [place] [address] [place] [address] Referral ID Status Reason Start Date Expiration Date Visits V isits Requested Authorized [id number] Closed Specialty 10/17/2021 12/15/2021 1 1 Service Requested Encounter Details Date Type Department Care Team Description 10/30/[address] Scan at [facility] Domingo Coy Abdominal aortic [facility] MD Glory aneurysm (AAA) Drive [facility] without rupture [place], [place] [facility] [address] VASCULAR SURGERY [phone] [place] [address] Social History Tobacco Use Types Packs/Day Years [...] Name Priority Date/Time Associated Diagnosis Comme nts CT CHEST, ABDOMEN, Routine 10/30/2021 9:30 AM Abdominal aortic Results for this PELVIS WO CONTRAST EDT aneurysm (AAA) procedu re are in without rupture the results section. documented in this encounter Results CT Chest Abdomen Pelvis wo Contrast (10/30/2021 9:30 AM EDT) Anatomical Region Laterality Modality Abdomen, Pelvis Computed Tomography Specimen (Source) Anatomical Collection Method Collection Time Re ceived Time Location / / Volume Laterality 10/30/2021 9:27 AM EDT Impressions 10/30/2021 11:07 AM EDT 1. ??Stable position of thoracoabdominal aortic endograft. Decreased size of infrarenal [place] abdominal aortic aneur ysm sac dimensions. Thank you for letting us participate in the care of this patient. ??If you are a health care provider and have any questi ons regarding this report, please contact the number below. ??For patients who have questions please contact the health administrator health care facility that requested your imaging first. ? Electronically signed by: Brent torre MD, [facility] ([phone]), at 10/30/2021 11:07 AM Narrative 10/30/2021 11:07 AM EDT EXAMINATION: CT CHEST ABDOMEN PELVIS WO CONTRAST CLINICAL HISTORY: Aortic aneurysm, known or suspected; AAA s/p PMEG, please perform with 1 mm cuts TECHNIQUE: Helical CT of the chest, abdo men and pelvis was performed without intravenous contrast. Oral contrast was not administered. COMPARISON: 10/04/2021 FINDINGS: The absence of intravenous contrast limi ts the evaluation of solid viscera and vasculature. Chest: Lungs and large airways: Centrilobular e mphysematous disease. No areas of airspace consolidation. Pleura: No effusion. Heart/vasculature: Post endograft placem ent in the aorta. The proximal aspect of the endograft located in the mid descend ing aorta and the distal aspect of the endograft extending to the infrarenal ab dominal aorta with bifurcated limbs terminating in the common iliac arteries . Stable position of the endograft. Lymph nodes: No enlarged lymph nodes. Mediastinum and alejandra: Normal. Abdomen/pelvis: Liver: Normal size and attenuation witho ut lesions. Bile ducts: Nondilated. Gallbladder: Trace cholelithiasis. No ga llbladder wall thickening. Pancreas: Normal attenuation without doug prakash dilatation. Spleen: Normal. Adrenals: Normal. Kidneys: No hydronephrosis. Stable. Urinary Bladder: Normal. Vasculature: As noted above, post stenti ng of the thoracoabdominal aorta. Decreased size of infrarenal abdominal a ortic [place] aneurysm sac, measuring approximately 3.6 x 4.1 cm, compared to approximately 4.9 x 6.0 cm previously.. Lymph Nodes: No enlarged lymph nodes. Bowel: Nondilated, no wall thickening. ? ? Peritoneum and mesentery: No ascites, fr ee air, or loculated fluid collection. No mesenteric inflammation. Abdominal wall: Normal. Reproductive organs: Absent uterus. No a dnexal masses Osseous structures: No suspicious lesion s. Procedure Note Brent Dhaliwal MD - 07/06/2022Form atting of this note might be different from the original. EXAMINATION: CT CHEST ABDOMEN PELVIS WO CONTRAST CLINICAL HISTORY: Aortic aneurysm, known or suspected; AAA s/p PMEG, please perform with 1 mm cuts TECHNIQUE: Helical CT of the chest, abdo men and pelvis was performed without intravenous contrast. Oral contrast was not administered. COMPARISON: 10/04/2021 FINDINGS: The absence of intravenous contrast limi ts the evaluation of solid viscera and vasculature. Chest: Lungs and large airways: Centrilobular e mphysematous disease. No areas of airspace consolidation. Pleura: No effusion. Heart/vasculature: Post endograft placem ent in the aorta. The proximal aspect of the endograft located in the mid descend ing aorta and the distal aspect of the endograft extending to the infrarenal ab dominal aorta with bifurcated limbs terminating in the common iliac arteries . Stable position of the endograft. Lymph nodes: No enlarged lymph nodes. Mediastinum and alejandra: Normal. Abdomen/pelvis: Liver: Normal size and attenuation witho ut lesions. Bile ducts: Nondilated. Gallbladder: Trace cholelithiasis. No ga llbladder wall thickening. Pancreas: Normal attenuation without doug prakash dilatation. Spleen: Normal. Adrenals: Normal. Kidneys: No hydronephrosis. Stable. Urinary Bladder: Normal. Vasculature: As noted above, post stenti ng of the thoracoabdominal aorta. Decreased size of infrarenal abdominal a ortic [place] aneurysm sac, measuring approximately 3.6 x 4.1 cm, compared to approximately 4.9 x 6.0 cm previously.. Lymph Nodes: No enlarged lymph nodes. Bowel: Nondilated, no wall thickening. Peritoneum and mesentery: No ascites, fr ee air, or loculated fluid collection. No mesenteric inflammation. Abdominal wall: Normal. Reproductive organs: Absent uterus. No a dnexal masses Osseous structures: No suspicious lesion s. IMPRESSION 1. Stable position of thoracoabdominal a ortic endograft. Decreased size of infrarenal [place] abdominal aortic aneur ysm sac dimensions. Thank you for letting us participate in the care of this patient. If you are a health care provider and have any questi ons regarding this report, please contact the number below. For patients w ho have questions please contact the health administrator health care facility that requested your imaging first. Domingo Coy MD IMG CT ORDERABLES documented in this encounter Visit Diagnoses Diagnosis Abdominal aortic aneurysm (AAA) without rupture documented in this encounter Care Teams Assistant Family Teacher Relationship Specialty Start Date End Date Sanjuanita Lee MD PCP - General 03/05/13 12/23/[address] [place] [address] documented as of this encounter
--- OUTSIDE RECORDS SUMMARY | 2022-02-22 23:26 | XMS_ITS | Encounter Summary ---
:1950 Author Organization [facility] [place] [address] Care Team Providers Name Role Phone Sanjuanita Lee MD Primary Care Provider Reason for Referral Diagnostic Test (Routine) - Closed Specialty Diagnoses / Procedures Referred By Contact Refer red To Contact Radiology Diagnoses Chronic kidney disease, unspecified CKD stage Tyron Kemp MD [facility] Rad Nuclear Med Procedures NM GFR Glomerular Filtration Rate Study [facility] [place] [address] [place] [address] Fax: Referral ID Status Reason Start Date Expiration Date Visits V isits Requested Authorized [id number] Closed Specialty 11/04/2021 05/07/2023 1 1 Service Requested Encounter Details Date Type Department Care Team Description 11/04/2021 Orders Only Nephrology Hypertension Dali [place] milagro kidney at [facility] Velasquez disease, unspecified [facility] Jennifer [place] [address] Social History Tobacco Use Types Packs/Day [...] specifi ed documented as of this encounter Results NM GFR Glomerular Filtration [...] who have questions please contact the health healthcare account manager that requested your imaging first. ? Electronically signed by: Lars Hernandez MD, [facility] ([phone]), at 11/28/2021 12:01 PM Narrative 11/28/2021 12:01 [...] original. EXAMINATION: NM RENAL W FUNCTION STUDY, CO GFR GLOMERULAR FILTRATION RATE STUDY CLINICAL HISTORY: [...] ho have questions please contact the health healthcare account manager that requested your imaging first. Electronically signed by: Lars Hernandez MD, [facility] ([phone]), at 11/28/2021 12:01 PM Tyron Kemp MD IMG NM ORDERABLES documented in this encounter Visit Diagnoses Diagnosis Chronic kidney disease, unspecified CKD stage Chronic kidney disease, unspecified CKD stage documented in this encounter Care Teams Roulette Dealer Relationship Specialty Start Date End Date Sanjuanita Lee MD PCP - General 03/05/13 12/23/[address] [place] [address] documented as of this encounter
--- OUTSIDE RECORDS SUMMARY | 2022-02-22 23:26 | XMS_ITS | Encounter Summary ---
:1950 Author Organization [facility] Address [facility] [place] [address] Care Team Providers Name Role Phone Sanjuanita Lee MD Primary Care Provider Encounter Details Date Type Department Care Team Description 11/01/2021 Orders Only Nephrology Hypertension Rubén, CKD (chronic kidney at [facility] Velasquez disease) stage 4, GFR [facility] D rive 15-29 ml/[place] [address] Social History Tobacco Use Types Packs/Day [...] ed documented as of this encounter Results (ABNORMAL) Protein/Creatinine Ratio, urine (11/28/2021 11:36 AM EDT) P athologist Signature U Creatinine 43 mg/dL [facility] U Protein Ran 96 (H) 0 - 12 [facility] Prot/Cre Ratio 2.2 ratio [facility] Specimen Anatomical Collection Method Collection Time Receive d Time (Source) Location / / Volume Laterality Urine 11/28/2021 11:36 11/28/2021 AM EDT 11:56 AM EDT Resulting Agency Comment Spec In Lab Tyron Kemp MD URINE ORDERABLES Performing Organization Address City/[facility]/ZIP Code Phon e Number [address] Gold Tube HOLD (11/28/2021 11:31 AM EDT) P athologist Signature Gold Hold Sample in [facility]. [facility] Specimen Anatomical Collection Method Collection Time Receive d Time (Source) Location / / Volume Laterality Blood 11/28/2021 11:31 11/28/2021 AM EDT 11:36 AM EDT Tyron Kemp MD CHEMISTRY ORDERABLES Performing Organization Address City/[facility]/ZIP Code Phon e Number [address] (ABNORMAL) PTH (11/28/2021 11:31 AM EDT) P athologist Signature PTH 100 (H) 15 - 65 [facility] pg/mL [facility] Specimen Anatomical Collection Method Collection Time Receive d Time (Source) Location / / Volume Laterality Blood 11/28/2021 11:31 11/28/2021 AM EDT 11:36 AM EDT Resulting Agency Comment Spec In Lab Tyron Kemp MD CHEMISTRY ORDERABLES Performing Organization Address City/[facility]/ZIP Code Phon e Number [address] (ABNORMAL) Uric acid (11/28/2021 11:31 AM EDT) P athologist Signature Uric Acid 7.0 (H) 2.5 - 6.5 [facility] mg/dL [facility] Specimen Anatomical Collection Method Collection Time Receive d Time (Source) Location / / Volume Laterality Blood 11/28/2021 11:31 11/28/2021 AM EDT 11:36 AM EDT Resulting Agency Comment Spec In Lab Tyron Kemp MD CHEMISTRY ORDERABLES Performing Organization Address City/State/[place] [address] Albumin Level (11/28/2021 11:31 AM EDT) P athologist Signature Albumin 3.9 3.2 - 5.2 [facility] g/dL [facility] Specimen Anatomical Collection Method Collection Time Receive d Time (Source) Location / / Volume Laterality Blood 11/28/2021 11:31 11/28/2021 AM EDT 11:36 AM EDT Resulting Agency Comment Spec In Lab Tyron Kemp MD CHEMISTRY ORDERABLES Performing Organization Address City/[facility]/[place] [address] Phosphorus (11/28/2021 11:31 AM EDT) P athologist Signature Phosphorus 4.0 2.5 - 4.5 [facility] mg/dL [facility] Specimen Anatomical Collection Method Collection Time Receive d Time (Source) Location / / Volume Laterality Blood 11/28/2021 11:31 11/28/2021 AM EDT 11:36 AM EDT Resulting Agency Comment Spec In Lab Tyron Kemp MD CHEMISTRY ORDERABLES Performing Organization Address City/[facility]/ZIP [facility] [place] [address] (ABNORMAL) Basic Metabolic Panel (non-fasting) (11/28/2021 11:31 AM EDT) P athologist Signature Glucose Lvl 76 65 - 199 [facility] mg/dL [facility] Comment: Diabetes: >=200 mg/dL plus symp toms BUN 34 (H) 8 - 18 mg/dL [facility] Creatinine 2.67 (H) 0.70 - 1.20 mg/dL [facility] Sodium 136 135 - 145 mmol/L [facility] Potassium 4.4 3.5 - 5.0 mmol/L [facility] Comment: Please note: ??Patients with WBC [...] Anion Gap 12 5 - 15 mmol/L [facility] Calcium 8.8 8.5 - 10.5 mg/dL [facility] Estimated GFR 18 (L) >=60 mL/min/1.73 [...] Organization Address City/State/[place] [address] documented in this encounter Visit Diagnoses Diagnosis CKD (chronic kidney disease) stage 4, GF R 15-29 ml/min Chronic kidney disease, Stage IV (severe ) documented in this encounter Care Teams Printer Slotter Helper Relationship Specialty Start Date End Date Sanjuanita Lee MD PCP - General 03/05/13 12/23/[address] [place] [address] documented as of this encounter
--- OUTSIDE RECORDS SUMMARY | 2022-02-22 23:26 | XMS_ITS | Encounter Summary ---
:1950 Author Organization [facility] [place] [address] Care Team Providers Name Role Phone Lexus Lawson KYRA Primary Care Provider Encounter Details Date Type Department Care Team Description 11/07/2021 Telephone Nephrology Hypertension at Jessenia [place], [facility] [place] [address] Social History Tobacco Use Types Packs/Day [...] Telephone Encounter - Eva Montana RN - 11/07/2021 12:16 PM EDT S/O: documented in this encounter Plan of Treatment Scheduled Procedures Name Priority Associated Diagnoses Date/Time EGD, UPPER GI ENDOSCOPY Gastroesophageal reflux disease, esophagitis presence not specifi ed documented as of this encounter Visit Diagnoses Not on filedocumented in this encounter Care Teams Ceramic Coater Relationship Specialty Start Date End Date Lexus Lawson APRN PCP - General Geriatric Medicine 12/24/[address] [place] [address] documented as of this encounter
--- OUTSIDE RECORDS SUMMARY | 2022-02-22 23:26 | XMS_ITS | Encounter Summary ---
:1950 Author Organization [facility] [place] [address] Care Team Providers Name Role Phone Sanjuanita Lee MD Primary Care Provider Reason for Referral Diagnostic Test (Routine) - Closed Specialty Diagnoses / Procedures Referred By Contact Refer red To Contact Radiology Diagnoses Chronic kidney disease, unspecified CKD stage Tyron Kemp MD [facility] Rad Nuclear Med Procedures NM Renal w Function Study [facility] [place] [address] [place] [address] Fax: Referral ID Status Reason Start Date Expiration Date Visits V isits Requested Authorized [id number] Closed Specialty 10/30/2021 05/02/2023 1 1 Service Requested Encounter Details Date Type Department Care Team Description 10/30/2021 Orders Only Nephrology Hypertension Tyron Kemp , Chronic kidney at [facility] MD disease, unspecified [facility] [place] [address] [place] [address] [phone] Social History Tobacco Use Types Packs/Day Years [...] documented as of this encounter Results NM Renal w Function [...] who have questions please contact the health health care / medical job titles that requested your imaging first. ? Electronically signed by: Lars Hernandez MD, [facility] ([phone]), at 11/28/2021 12:01 PM Narrative 11/28/2021 12:01 [...] ho have questions please contact the health health care / medical job titles that requested your imaging first. Electronically signed by: Lars Hernandez MD, [facility] ([phone]), at 11/28/2021 12:01 PM Tyron Kemp MD IMG [place] ORDERABLES documented in this encounter Visit Diagnoses Diagnosis Chronic kidney disease, unspecified CKD stage Chronic kidney disease, unspecified CKD stage documented in this encounter Care Teams News Technical Director Relationship Specialty Start Date End Date Sanjuanita Lee MD PCP - General 03/05/13 12/23/21 [address] [place] [address] documented as of this encounter
--- OUTSIDE RECORDS SUMMARY | 2022-02-22 23:26 | XMS_ITS | Encounter Summary ---
:1950 Author Organization [facility] [place] [address] Care Team Providers Name Role Phone Sanjuanita Lee MD Primary Care Provider Encounter Details Date Type Department Care Team Description 10/30/2021 Telephone Nephrology Hypertension at Jessenia Montana, [facility] [place] [address] Social History Tobacco Use Types Packs/Day [...] Telephone Encounter - Eva Montana RN - 10/30/2021 1:56 PM EDT S/O: Jami stopped in to the clinic after her Vascular follow up to check in after having her IVF challenge. She did not feel well immediately after the fluids, reporting she was very wobbly. She looked good, with no edema. Creatinine was rechecked today improved from 3.8 to 3.04 which is still above baseline. Jami said that Dr Trevizo feels this may be her new baseline. They did check her renal artery stent and it was clear. P: Jami has an appointment with Dr Kemp next month and will begin to save her left arm from venipuncture documented in this encounter Plan of Treatment Scheduled Procedures Name Priority Associated Diagnoses Date/Time EGD, UPPER GI ENDOSCOPY Gastroesophageal reflux disease, esophagitis presence not specifi ed documented as of this encounter Visit Diagnoses Not on filedocumented in this encounter Care Teams Pmo Lead Relationship Specialty Start Date End Date Sanjuanita Lee MD PCP - General 03/05/13 12/23/[address] [place] [address] documented as of this encounter
--- OUTSIDE RECORDS SUMMARY | 2022-02-22 23:26 | XMS_ITS | Encounter Summary ---
:1950 Author Organization [facility] [place] [address] Care Team Providers Name Role Phone Sanjuanita Lee MD Primary Care Provider Reason for Visit Diagnostic Test (Routine) - Closed Specialty Diagnoses / Procedures Referred By Contact Refer red To Contact Radiology Diagnoses Chronic kidney disease, unspecified CKD stage Tyron Kemp MD [facility] Rad Nuclear Med Procedures NM GFR Glomerular Filtration Rate Study [facility] [place] [address] [place] [address] Fax: Referral ID Status Reason Start Date Expiration Date Visits V isits Requested Authorized [id number] Closed Specialty 11/04/2021 05/07/2023 1 1 Service Requested Encounter Details Date Type Department Care Team Description 11/27/2021 Hospital Encounter Nuclear Medicine at Tyron Kemp Mary Hitchcock MD [facility] [place] [address] [place] [address] [phone] (Wo rk) Social History Tobacco Use Types [...] who have questions please contact the health animal daycare provider that requested your imaging first. ? Electronically signed by: Lars Hernandez MD, [facility] ([phone]), at 11/28/2021 12:01 PM Narrative 11/28/2021 12:01 [...] ho have questions please contact the health animal daycare provider that requested your imaging first. Electronically signed by: Lars Hernandez MD, [facility] ([phone]), at 11/28/2021 12:01 PM Tyron Kemp MD [...] who have questions please contact the health animal daycare provider that requested your imaging first. ? Electronically signed by: Lars Hernandez MD, [facility] ([phone]), at 11/28/2021 12:01 PM Narrative 11/28/2021 12:01 [...] ho have questions please contact the health animal daycare provider that requested your imaging first. Electronically signed by: Lars Hernandez MD, [facility] ([phone]), at 11/28/2021 12:01 PM Tyron Kemp MD IMG NM ORDERABLES documented in this encounter Visit Diagnoses Not on filedocumented in this encounter Care Teams Piano Case And Bench Assembler Relationship Specialty Start Date End Date Sanjuanita Lee MD PCP - General 03/05/13 12/23/[address] [place] [address] documented as of this encounter
--- OUTSIDE RECORDS SUMMARY | 2022-02-22 23:26 | XMS_ITS | Encounter Summary ---
:1950 [place] [address] Care Team Providers Name Role Phone Lexus Lawson APRN Primary Care Provider Encounter Details Date Type Department Care Team Description 12/31/2021 Office Visit Dermatology at Katerine Franklin MD Seborrheic keratosis (Primary Dx); Road [facility] History of skin cancer [address] [place] [address] [facility] [phone] [address] [place], [place] [address] Social History Tobacco Use Types Packs/Day Years [...] on file documented as of this encounter Patient Instructions Patient InstructionsIain Gonzalez MD - 12/31/2021 4:20 PM EDT Nice meeting you today Charlene! As we discussed the lesions on your chest are benign (non-cancerous) growths that are known as seborrheic keratosis. Given your basal cell last year, let's get you back on schedule for yearly skin exams. I had my secretary receptionist place a reminder to call you early Summer next year for an appointment. Take care! If any concerns arise, please don't hesitate to reach out, I am happy to see you Iain Gonzalez MD documented in this encounter Progress Notes Tip Norwood MA - 12/31/2021 4:20 PM EDT Entered in error Iain Gonzalez MD - 12/31/2021 4:20 PM EDT Images from the original note were not included. DEPARTMENT OF DERMATOLOGY [facility] D[facility] Provider: Iain Gonzalez MD Patient's preferred name Charlene Preferred contact method for results []Phone []myD-H []Letter Detailed phone message OK? N Are there any other people with whom we may discuss your care? N Past Medical History Date, location, treatment Melanoma N Dysplastic nevi N SCC N BCC BCC on the right ala s/p mohs 07/05/20 AKs N UV Exposure & Protection Other relevant past medical history - CKD stage 5, due to hypertensive nephrosclerosis Family History Details Melanoma N NMSC N Other relevant family history N Social History Occupation: Retired Hobbies: Other: with 2 kids Pre-Procedure Screening Details Allergy to lidocaine, epinephrine, Dermabond, chlorhexidine, or adhesives N Bleeding disorder or blood thinners ASA 81 mg Implanted devices (Pacemaker, defibrillator, deep brain stimulator, cochlear implant) N History of Present Illness: Charlene Harmon is a 71 y.o. female patient who presents for two spots of concern. Both located on chest, present x months, not itchy, not painful or bleeding, have irregular color and growing and recent hx of BCC s/p Mohs which prompted concern Last visit at Dermatology: 05/14/2020 Last visit with this provider: Visit date not found Medications: Reviewed in eD-H Allergies: Reviewed in eD-H Skin Examination: Focused skin examination of the chest was normal with the exception of the findings below. Assessment/Plan #. Seborrheic Keratoses EXAM: On the right and left upper chest are two waxy, stuck-on, irregularly pigmented papules with slight scale - Discussed benign nature of seborrheic keratosis - Offered cryotherapy for treatment but patient declines #. Hx of NMSC Recent BCC around 1 year ago. Discussed recommendation would be yearly skin checks Will place recall for FBSE with me next summer Other: ??? N/A RTC: As needed []Note routed to secretary receptionist [x]Recall placed in scheduling system []Appointment scheduled at checkout Scribe attestation: Iain Gonzalez MD has performed the documentation for this encounter in the presence of and acting as a scribe for Iain Gonzalez MD. I performed the above scribed service and agree with the accuracy of the documentation in this encounter. Reviewed and signed by: Iain Gonzalez MD Dermatology [facility] Patient seen and evaluated with staff food aide: Viki Tarango MD Dermatology [facility] Viki Tarango MD - 12/31/2021 4:20 PM EDT I directly supervised Dr. Gonzalez during this office visit. Dr. Gonzalez presented the history and physical exam to me. I, then, saw and examined this patient with Dr. Gonzalez. We reviewed the history and pertinent details and I confirmed the physical findings. I agree with the details of the history and physical exam as documented in Dr. Nichols's note. VIKI TARANGO MD Staff Physician documented in this encounter Plan of Treatment Scheduled Procedures Name Priority Associated Diagnoses Date/Time EGD, UPPER GI ENDOSCOPY Gastroesophageal reflux disease, esophagitis presence not specifi ed documented as of this encounter Visit Diagnoses Diagnosis Seborrheic keratosis - Primary Other seborrheic keratosis History of skin cancer Personal history of other malignant neop lasm of skin documented in this encounter Care Teams Press Smith Helper Relationship Specialty Start Date End Date Lexus Lawson APRN PCP - General Geriatric Medicine 12/24/[address] [place] [address] documented as of this encounter
--- OUTSIDE RECORDS SUMMARY | 2022-02-22 23:26 | XMS_ITS | Encounter Summary ---
:1950 Author Organization [facility] [place] [address] Care Team Providers Name Role Phone Sanjuanita Lee MD Primary Care Provider Reason for Referral Diagnostic Test (Routine) - Closed Specialty Diagnoses / Procedures Referred By Contact Refer red To Contact Radiology Diagnoses Chronic kidney disease, unspecified CKD stage Tyron Kemp MD [facility] Rad Nuclear Med Procedures NM Renal w Function Study [place], [place] [id number] [place] [phone] Fax: Referral ID Status Reason Start Date Expiration Date Visits V isits Requested Authorized [id number] Closed Specialty 10/30/2021 05/02/2023 1 1 Service Requested Reason for Visit Diagnostic Test (Routine) - Closed Specialty Diagnoses / Procedures Referred By Contact Refer red To Contact Radiology Diagnoses Chronic kidney disease, unspecified CKD stage Tyron Kemp MD [facility] Rad Nuclear Med Procedures [place] [address] [place] [address] Fax: Referral ID Status Reason Start Date Expiration Date Visits V isits Requested Authorized [id number] Closed Specialty 10/30/2021 05/02/2023 1 1 Service Requested Encounter Details Date Type Department Care Team Description 11/27/2021 Hospital Encounter Nuclear Medicine at [facility] kidney Mariama Muñoz MD disease, unspecified [facility] CKD stage [facility] [address] [place] [phone] Social History Tobacco Use Types Packs/Day Years [...] Priority Date/Time Associated Diagnosis Comme nts NM RENAL WITH Routine 11/27/2021 1:41 PM Chronic kidney Result s for this FUNCTION STUDY EDT disease, unspecified proce dure are in CKD stage the results section. documented in [...] who have questions please contact the health care worker that requested your imaging first. ? Electronically signed by: Lars Hernandez MD, [facility] ([phone]), at 11/28/2021 12:01 PM Narrative 11/28/2021 12:01 [...] ho have questions please contact the health care worker that requested your imaging first. Electronically signed by: Lars Hernandez MD, [facility] ([phone]), at 11/28/2021 12:01 PM Tyron Kemp MD IMG NM ORDERABLES documented in this encounter Visit Diagnoses Diagnosis Chronic kidney disease, unspecified CKD stage documented in this encounter Administered Medications Inactive Administered Medications - up to 3 most recent administrations Medication Order MAR Action Action Date Dose Rate Site technetium (Tc-99m) pentetate Given 11/27/2021 1:15 PM EDT 4.1 m Ci (DTPA) solution 0-5 mCi 0-5 mCi, Intravenous, ONCE PRN, 1 dose, Starting on Thu11/27/21 at 1341, Until Thu11/27/21 at 1315, Per Protocol, Radiology Contrast, Routine documented in this encounter Care Teams Roto Rooter Operator Relationship Specialty Start Date End Date Sanjuanita Lee MD PCP - General 03/05/13 12/23/[address] [place] [address] documented as of this encounter
--- OUTSIDE RECORDS SUMMARY | 2022-02-22 23:26 | XMS_ITS | Encounter Summary ---
:1950 Author Organization [facility] [place] [address] Care Team Providers Name Role Phone Sanjuanita Lee MD Primary Care Provider Encounter Details Date Type Department Care Team Description 10/30/2021 Laboratory Appointment Lab 3L [facility] aortic [facility] aneurysm (AAA) [place] [id number] Social History Tobacco Use Types Packs/Day Years [...] Name Priority Date/Time Associated Diagnosis Comme nts HC CREATININE STAT 10/30/2021 7:03 AM Abdominal aortic Res ults for this EDT aneurysm (AAA) procedure are in the without rupture results sect ion. documented in this encounter Results (ABNORMAL) Creatinine (10/30/2021 7:03 AM EDT) Analysis Performed At Patho logist Time Signature Creatinine 3.04 (H) 0.70 - ZAKIA ZHANG 1.20 mg/dL [facility] Estimated GFR 16 (L) >=60 ZAKIA ZHANG mL/min/1.7 [facility] 3 m?? HOSPITAL [facility] Comment: This patient's estimated GFR [...] (Source) Location / / Volume Laterality Blood 10/30/2021 7:03 AM 7:14 EDT AM EDT Resulting Agency Comment Spec In Lab Candida Cisse APRN CHEMISTRY ORDERABLES Performing Organization Address City/State/ZIP Code Phon [place] [address] documented in this encounter Visit Diagnoses Diagnosis Abdominal aortic aneurysm (AAA) without rupture documented in this encounter Care Teams Head Host/Hostess Relationship Specialty Start Date End Date Sanjuanita Lee MD PCP - General 03/05/13 12/23/[address] [place] [address] documented as of this encounter
--- OUTSIDE RECORDS SUMMARY | 2022-02-22 23:26 | XMS_ITS | Encounter Summary ---
:1950 Author Organization [facility] [place] [address] Care Team Providers Name Role Phone Sanjuanita Lee MD Primary Care Provider Encounter Details Date Type Department Care Team Description 10/30/2021 Tech Visit Vascular Lab at [facility], Abdom inal aortic [facility] RVT aneurysm (AAA) [place] [address] Social History Tobacco Use Types Packs/Day [...] Procedure Name Priority Date/Time Associated Comments Diagnosis MESENTERIC COMPLETE Routine 10/30/2021 10:07 AM Abdominal aort ic Results for this EDT aneurysm (AAA) procedure are in without rupture the results section. documented in this encounter Results Duplex Study Visceral Arteries, Comp (10/30/2021 10:07 AM EDT) Component Value Ref Test Analysis Performed At [facility] gist Range Method Time Signature VB Text Department: Vascular Surgery Lab [facility] Report Patient: [id number] (CHARLENE HARMON) CPT: 75240 Referring Physician: CANDIDA CISSE ?? Indications: ??hx PMEG Findings: Unilateral ? Waveform ?PSV cm/s ??EDV cm/s ??Patent ?? Syl Renal Aorta ?110 ? 0 ? Celiac Artery, Proximal ?No Vis ?? Celiac Artery, Mid ? No Vis ?? Celiac Artery, Distal ?No Vis ?? Sup Mes Artery Proximal ??Bi -Triphasic ? 187 ? 9 ? Sup Mes Artery Middle ?B iphasic ? 246 ?34 ? Sup Mes Artery Distal ?B iphasic ? 206 ? 0 ? Hepatic Artery ? Monophasic ?56 ?13 ? Splenic Artery ? Monophasic ?69 ?12 ? Inf Mes Artery ? No Vis ?? Interpretation: Celiac artery not identified . The splenic and common hepatic arteries appear to be perfused by a collateral. Patent superior mesenteric artery with no evidence of stenos is. Inferior mesenteric artery not identified. Comparison: ??No previous study in our vascular lab da tabase for comparison. Electronically Signed by: GREYSON SILVERMAN on 2021-10-30 10:35 :51 AM VB Text End of Report [facility]AS[facility] Report Specimen (Source) Anatomical Collection Method Collection Time Re ceived Time Location / / Volume Laterality 10/30/2021 10:07 AM EDT Candida Cisse APRN VASCULAR ORDERABLES Performing Organization Address City/State/ZIP Code Phon e Number [email or web address] documented in this encounter Visit Diagnoses Diagnosis Abdominal aortic aneurysm (AAA) without rupture documented in this encounter Care Teams Insurance Account Specialist Relationship Specialty Start Date End Date Sanjuanita Lee MD PCP - General 03/05/13 12/23/[address] [place] [address] documented as of this encounter
--- OUTSIDE RECORDS SUMMARY | 2022-02-22 23:26 | XMS_ITS | Encounter Summary ---
:1950 Author Organization [facility] [place] [address] Care Team Providers Name Role Phone Sanjuanita Lee MD Primary Care Provider Encounter Details Date Type Department Care Team Description 10/30/2021 Office Visit Vascular Surgery at [facility], Regan Garcia coabdominal aortic [facility] MD Gl[place] aneurysm, without rupture [facility] [address], [place] VASCULAR SURGERY [address] [place], [place] [phone] [facility] Social History Tobacco Use Types Packs/Day Years [...] Sign Reading Time Taken Comments Blood Pressure 147/53 10/30/2021 1:00 PM EDT Pulse 62 10/30/2021 1:00 PM EDT Temperature - - Respiratory Rate - - Oxygen Saturation - - Inhaled Oxygen Concentration - - Weight 46.7 kg (103 lb) 10/30/2021 1:00 PM EDT reported Height 152.4 cm (5') 10/30/2021 1:00 PM EDT reported Body Mass Index 20.12 10/30/2021 1:00 PM EDT documented in this encounter Progress Notes Regna Trevizo MD - 10/30/2021 1:00 PM EDT This patient returned to the vascular clinic today for a follow up visit for 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 Patient tolerated the procedure well, but hashad some issues in the postprocedural period with a rising creatinine level, now plateaued around 3.0. The patient has a prior history of a right ileal renal bypass for origin occlusive disease. Clinically, she is doing well, not retaining fluid, with normal electrolytes. She has not required any dialysis. She has been followed by Dr. Tyron Kemp of the nephrology service. PMHx: Past Medical History: Diagnosis Date ??? AAA (abdominal aortic aneurysm) [id number] angiogram; 3.2 cm infrarenal ??? Constipation ??? Dyslipidemia ??? Hypertension ??? Insomnia ??? Peripheral vascular disease ??? Renal artery stenosis R; per 2009 angiogram ??? SBO (small bowel obstruction) SxHx: Past Surgical History: Procedure Laterality Date ??? HYSTERECTOMY ? ? PRO CATHETER 1ST ORDER W/WO ART PUNCT/FLUORO/S&I BILATERAL Bilateral 09/01/[address] (FIRST-ORDER), MAIN RENAL ART & ANY ACC, W/S&I; ANDREY (WRVU 6.99) performedby Regan Chen MD at [facility] MAIN OR ??? PRO EXPLORATION OF ABDOMEN N/A 04/26/2020 @EXPLORATORY LAPAROTOMY, WITH/WITHOUT BIOPSY(S) (WRVU 12.54) performed by Edwin Hwang MD at [facility] MAIN OR ??? PRO SIGMOIDOSCOPY, DIAGNOSTIC N/A 10/03/2021 FLEXIBLE SIGMOIDOSCOPY performed by Silver Rossi MD at [facility] ENDOSCOPY ??? PRO UPPER GI ENDOSCOPY, DIAGNOSTIC 01/20/2014 EGD, UPPER GI ENDOSCOPY performed by Corby Cano MD at [facility] ENDOSCOPY ??? PRO UPPER GI ENDOSCOPY, DIAGNOSTIC N/A 07/28/2017 EGD, UPPER GI ENDOSCOPY performed by Snow Liao MD at [facility] ENDOSCOPY ??? PRO VEIN BYPASS GRAFT, AORTOILIOFEMORAL N/A 09/07/2018 @BYPASS GRAFT, AORTOILIAC W\ VEIN CONDUIT (WRVU 41.88) performed by Isac Moody MD at [facility] MAIN OR ??? PRO VISCERAL AND INFRARENAL ABDOM AORTA ONE PROSTHESIS N/A 10/01/2021 @EVG REPAIR VISCERAL & INFRARENAL ABDML AORTA,FENESTRATED,ONE ARTERY,INC. S&I (WRVU 77.3) performed by Regan Trevizo MD at [facility] MAIN OR ??? VS ARTERIOGRAM RENAL VASCULAR SURGERY 08/01/2021 VS Arteriogram Renal Vascular Surgery 08/01/2021 Isac Moody MD [facility] INTERVENTIONL RAD Social Hx: Social History Tobacco Use ??? Smoking status: Former Smoker Packs/day: 0.50 Years: 45.00 Pack years: 22.50 Types: Cigarettes Quit date: 2007 Years since quittin.5 ??? Smokeless tobacco: Never Used ??? Tobacco comment: smoked for ~45 years up to 1 ppd at [place], quit ~2000 Substance Use Topics ??? Alcohol use: Yes Comment: a few glasses of wine, rarely 4 times a year Medications: Medications 10/30/21 1301 Medication Sig Taking? traZODone (DESYREL) 150 mg Tablet TAKE ONE TABLET BY MOUTH AT BEDTIME NEEDED FOR SLEEP Yes carvediloL (Coreg) 12.5 mg Tablet Take 1 tablet by mouth 2 times daily (with meals). Yes hydrALAZINE (Apresoline) 25 mg Tablet Take 1 tablet by mouth 3 times daily. Yes isosorbide dinitrate (ISORDIL) 20 mg Tablet Take 1 tablet by mouth 3 times daily. Yes levothyroxine (Synthroid) 75 mcg Tablet Take 1 tablet by mouth daily. Yes amLODIPine (Norvasc) 5 mg Tablet Take 1 tablet by mouth daily. Yes cimetidine (TAGAMET) 400 mg Tablet Take 400 mg by mouth 2 times daily. Yes furosemide (Lasix) 20 mg Tablet Take 20 mg by mouth 2 times daily. Takes at 0800 and 1600 Yes gabapentin (NEURONTIN) 100 mg Capsule Take 300 mg by mouth nightly. Yes atorvastatin (LIPITOR) 20 mg Tablet Take 1 tablet by mouth every evening. Yes cloNIDine (CATAPRES) 0.1 mg Tablet Take 1 tablet by mouth every 8 hours as needed (Please take 1 tablet, if systolic blood pressure is >200). Yes acetaminophen (TYLENOL) 500 mg Tablet Take 1 tablet by mouth every 6 hours. Yes aspirin 81 mg Tablet, Delayed Release (E.C.) Take 81 mg by mouth daily. Yes Allergies: No Known Allergies Review of Systems: Constitutional (weight change, fever) - Denies Neuro (dizziness, seizures, numbness, tingling) - Denies Eyes (vision) - Denies Ears, nose, throat (hearing) - Denies Cardiovascular (CP) - Denies Respiratory (SOB) - Denies GI (abd pain, nausea, emesis, blood in stool) - Denies (hematuria, dysuria, frequency) - Denies Muscoloskeletal (extremity pain, weakness) - denies Skin (ulcers, rashes) - denies All other ROS negative Physical Exam: Vitals: Patient Vitals for the past 24 hrs: Pulse BP 10/30/21 1300 62 147/53 Gen: No acute distress. HEENT: Normocephalic, atraumatic. PERR, EOMs intact bilaterally. No scleral icterus. Neck: Supple, no JVD. Heart: Regular rate and rhythm. (+) S1/S2. No snaps, clicks, rubs, or murmurs. Lungs: Regular respiratory rate with no increased work of breathing. Clear to auscultation bilaterally. Abd: Soft, nontender, not distended. Audible bowel sounds. No bruits or pulsatile mass on exam. Extremities: warm Vascular Exam: R L Carotid 2/2 bruit (-) 2/2 bruit (-) Radial 2/2 2/2 Femoral 2/2 2/2 Popliteal 2/2 2/2 DP 2/2 2/2 PT 2/2 2/2 Psych: AAOx3 Labs/Studies: Aortic endograft stent structure is widely patent with what appears to be good proximal and distal seal zones. The SMA branch stent structure is widely patent. This is a noncontrast scan so actual patency cannot be ascertained.. Impression: On CT scan, Ms. Harmon's single vessel (SMA) physician modified endograft is in excellent position with what appears to be excellent seals at the proximal and distal endpoints. Because the scan was done without contrast, we also obtained a AAA sac duplex that did not show any sign of endoleak. Her mesenteric stent is widely patent. Prior to the aortic endograft procedure, the patient underwent a CO2 visceral angiogram to interrogate her possible branch targets. That angiogram showed what was a celiac origin occlusion with reconstitution from SMA collateral flow, a patent right iliofemoralbypass, and no sign of a left renal artery. Based upon that angiogram, a left renal artery fenestration was not created. However, in retrospect, I suspect that the patient actually had some degree of functional left-sided kidney and I suspect that her subsequent rising creatinine is a result of left renal devascularization. At this point, I do not see any merit in attempting to revascularize the leftkidney as it has been completely devascularized for quite some time now. I suspect that a creatinineof 3.0 is her new baseline. I will have a discussion with the patient's market editor Dr Kemp to inform him of my impressions. While this is unfortunate, I am heartened to see that her aneurysm appears to be durably fixed. I will see Ms. Harmon back in 6 months with a repeat noncontrast CT scan as wellas AAA sac duplex and mesenteric branch duplex. documented in this encounter Plan of Treatment Scheduled Procedures Name Priority Associated Diagnoses Date/Time EGD, UPPER GI ENDOSCOPY Gastroesophageal reflux disease, esophagitis presence not specifi ed documented as of this encounter Visit Diagnoses Diagnosis Thoracoabdominal aortic aneurysm, withou t rupture Thoracoabdominal aneurysm without mentio n of rupture documented in this encounter Care Teams Business Development Director Relationship Specialty Start Date End Date Sanjuanita Lee MD PCP - General 03/05/13 12/23/[address] [place] [address] documented as of this encounter
--- OUTSIDE RECORDS SUMMARY | 2022-02-22 23:26 | XMS_ITS | Encounter Summary ---
:1950 Author Organization [facility] [place] [address] Care Team Providers Name Role Phone Lexus Lawson KYRA Primary Care Provider Encounter Details Date Type Department Care Team Description 10/30/2021 Tech Visit Vascular Lab at [facility], Abdominal aortic [facility] aneurysm (AAA) without [place] [address] Social History Tobacco Use Types Packs/Day [...] Name Priority Date/Time Associated Diagnosis Comme nts AAA DUPLEX COMPLETE Routine 10/30/2021 7:32 AM Abdominal aorti c Results for this EDT aneurysm (AAA) procedure are in without rupture the results section. RENAL ARTERY Routine 10/30/2021 7:32 AM Abdominal aortic Resul ts for this DUPLEX, UNIL EDT aneurysm (AAA) procedure are in without rupture the results section. documented in this encounter Results AAA Duplex, Complete/Bilateral (10/30/2021 7:32 AM EDT) Component Value Ref Test Analysis Performed At [facility] Range Method Time Signature VB Text Department: Vascular Surgery Lab [facility] Report Patient: [id number] (CHARLENE HARMON) CPT: 05107 Referring Physician: CANDIDA CISSE ?? Indications: s/p PMEG 09/27/2021; ?patency/endoleak Findings: Unilateral ? PSV ( cm/s) ??EDV (cm/s) ??Diam AP (cm) ??Diam Lateral (cm) ?? Syl Renal Aorta ? 56 ?18 ? Infra Renal Aorta ? 4.5 ?5.8 ?? Bifurcated Graft, Inflow Artery ? PSV (cm/s): 56 ? EDV (cm/s): 18 ? Location: Proximal Abdominal Aorta Bifurcated Graft, Inflow Anastomosis ? PSV (cm/s): 85 ? EDV (cm/s): 14 ? Location: Proximal Abdominal Aorta Graft main stem ? PSV (cm/s): 78 ? EDV (cm/s): 18 Bifurcated Graft, Proximal Right Limb ? PSV (cm/s): 75 ? EDV (cm/s): 0 Bifurcated Graft, Distal Right Limb ? PSV (cm/s): 105 ? EDV (cm/s): 0 Bifurcated Graft, Proximal Left Limb ? PSV (cm/s): 50 ? EDV (cm/s): 0 Bifurcated Graft, Distal Left Limb ? PSV (cm/s): 62 ? EDV (cm/s): 0 Interpretation: Patent endograft s/p PMEG procedure with no evidence of stenosis or endoleak. Residual aneurysm sac measures 4.5 X 5 .8cm. Diameter measurements are larger than noted on pre endograft duplex, however, no significant change compared to CT scan 06/2021 where larges t measurement was 5.6cm. Previous AAAs with change from previous value: Date ? DIAM AP ?DIAM LAT ? 4.00 ? 4.70 ? 4.00 ( 0.00) ?? 5.20 (+0.50) Current Exam ?? 4.50 (+0.50) ?? 5.80 (+0.60) Electronically Signed by: GREYSON SILVERMAN on 2021-10-30 09:23 :57 AM VB Text End of Report [email or web address] Report Specimen (Source) Anatomical Collection Method Collection Time Re ceived Time Location / / Volume Laterality 10/30/2021 7:32 AM EDT Candida Cisse APRN VASCULAR ORDERABLES Performing Organization Address City/State/ZIP Code Phon e Number [email or web address] Renal Artery Duplex, Unil (10/30/2021 7:32 AM EDT) Component Value Ref Test Analysis Performed At [facility] Range Method Time Signature VB Text Department: Vascular Surgery Lab [email or web address] Report Patient: [id number] (CHARLENE HARMON) CPT: 87495 Referring Physician: CANDIDA CISSE ?? 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 s tenosis. Findings: Syl Renal Aorta ? PSV (cm/s): 36 ? EDV (cm/s): 0 Renal Artery Distal, Right ? PSV (cm/s): 78 ? EDV (cm/s): 11 ? RAR: 2.2 Upper Pole Renal Parenchyma, Right ? PSV (cm/s): 19 ? EDV (cm/s): 4 ? RI: 0.79 Mid Pole Renal Parenchyma, Right ? AT (ms): 32 Lower Pole Renal Parenchyma, Right ? PSV (cm/s): 13 ? EDV (cm/s): 3 ? RI: 0.77 Renal Hilum, Right ? PSV (cm/s): 38 ? EDV (cm/s): 15 ? AT (ms): 32 Kidney Length, Right ? Length (cm): 11.3 Renal Vein, Right ? Patent: Patent Right Ilio-Renal SEGMENT ?PSV (cm/s) ??EDV (cm/s) ?RI ?? Right Abdominal Graft, Proximal ?72 ?12 ??0.83 ?? Right Abdominal Graft, Mid ? 45 ? 7 ??0.84 ?? Right Abdominal Graft, Distal ?76 ?12 ??0.84 ?? Interpretation: Right: The renal artery bypass is patent with no identifiable stenosis. Iliac artery inflow, proximal anastomosis and distal anastomosis n ot clearly visualized, cannot exclude stenosis in these areas. The na tive distal renal artery is patent with no evidence of hemodynamically signifi cant stenosis. Patent intraparenchymal arteries with normal arterial flow . No identifiable change when compared to the previous exam. No identifiable change when compared to the previous exam Electronically Signed by: GREYSON SILVERMAN on 2021-10-30 09:23 :12 AM VB Text End of Report [email or web address] Report Specimen (Source) Anatomical Collection Method Collection Time Re ceived Time Location / / Volume Laterality 10/30/2021 7:32 AM EDT Candida Cisse APRN VASCULAR ORDERABLES Performing Organization Address City/State/ZIP Code Phon e Number [email or web address] documented in this encounter Visit Diagnoses Diagnosis Abdominal aortic aneurysm (AAA) without rupture documented in this encounter Care Teams Stave Jointer Relationship Specialty Start Date End Date Lexus Lawson APRN PCP - General Geriatric Medicine 12/24/[address] [place] [place] [address] documented as of this encounter
--- OUTSIDE RECORDS SUMMARY | 2022-02-22 23:26 | XMS_ITS | Encounter Summary ---
:1950 Author Organization [facility] [place] [place] [address] Care Team Providers Name Role Phone Sanjuanita Lee MD Primary Care Provider Encounter Details Date Type Department Care Team Description 12/02/2021 Telephone Nephrology [place] [address] Social History Tobacco Use Types Packs/Day [...] this encounter Miscellaneous Notes Telephone Encounter - Rashmi Vega RN - 12/02/2021 8:21 AM EDT S/O: Patient calling to follow up with dates when she might be able to get her iron IV push doses completed. She is available 12/03 and 12/10 so far. RN will contact the [facility] and have them set up times with patient directly. RN spoke with [facility] staff and they are booked for the next couple of weeks but will call patient and get her scheduled as soon as they can. documented in this encounter Plan of Treatment Scheduled Procedures Name Priority Associated Diagnoses Date/Time EGD, UPPER GI ENDOSCOPY Gastroesophageal reflux disease, esophagitis presence not specifi ed documented as of this encounter Visit Diagnoses Not on filedocumented in this encounter Care Teams Arch Cushion Skiving Machine Operator Relationship Specialty Start Date End Date Sanjuanita Lee MD PCP - General 03/05/13 12/23/[address] [place] [address] documented as of this encounter
--- OUTSIDE RECORDS SUMMARY | 2022-02-22 23:27 | XMS_ITS | Encounter Summary ---
:1950 Author Organization [facility] [place] [address] Care Team Providers Name Role Phone Sanjuanita Lee MD Primary Care Provider Reason for Referral Diagnostic Test (Routine) - Closed Specialty Diagnoses / Procedures Referred By Contact Refer red To Contact Radiology Diagnoses Abdominal aortic aneurysm (AAA) without rupture Abbie Pineda PA [facility] Rad Ct Scan Procedures CT Chest Abdomen Pelvis wo Contrast [facility] [place] [address] [place] [address] Referral ID Status Reason Start Date Expiration Date Visits V isits Requested Authorized [id number] Closed Specialty 10/17/2021 12/15/2021 1 1 Service Requested iagnostic Test (Routine) - New Request Specialty Diagnoses / Procedures Referred By Contact Refer red To Contact Diagnoses Abdominal aortic aneurysm (AAA) without rupture Candida Velez APRN [facility] Vascular Lab 3v Procedures AAA Duplex, Complete/Bilateral [facility] [place] [address] [place] [address] Referral ID Status Reason Start Expiration Visits Visits Date Date Requested Authorized [id number] New Request Specialty 10/07/2021 10/07/2022 1 1 Service Requested Diagnostic Test (Routine) - New Request Specialty Diagnoses / Procedures Referred By Contact Refer red To Contact Diagnoses Abdominal aortic aneurysm (AAA) without rupture Candida Velez APRN [facility] Vascular Lab 3v Procedures Duplex Study Visceral Arteries, Comp [facility] [place] [address] [place] [address] Referral ID Status Reason Start Expiration Visits Visits Date Date Requested Authorized [id number] New Request Specialty 10/07/2021 10/07/2022 1 1 Service Requested Diagnostic Test (Routine) - New Request Specialty Diagnoses / Procedures Referred By Contact Refer red To Contact Diagnoses Abdominal aortic aneurysm (AAA) without rupture Candida Velez APRN [facility] Vascular Lab 3v Procedures Renal Artery Duplex, Unil [facility] [place] [id number] [place] [address] Referral ID Status Reason Start Expiration Visits Visits Date Date Requested Authorized [id number] New Request Specialty 10/07/2021 10/07/2022 1 1 Service Requested Reason for Visit Auth/Cert Specialty Diagnoses / Procedures Referred By Contact Refer red To Contact Diagnoses Abdominal aortic aneurysm (AAA) without rupture Enlarging Fusiform AAA Procedures PRO VISCERAL AND INFRARENAL ABDOM AORTA ONE PROSTHESIS @EVG REPAIR VISCERAL & INFRARENAL ABDML AORTA,FENESTRATED,ONE ARTERY,INC. S&I (WRVU 77.3) Referral ID Status Reason Start Date Expiration Date Visits Requ ested Visits Authorized [id number] 1 1 Encounter Details Date Type Department Care Team Description 10/01/2021 - Hospital Encounter Surgical Intensive Greyson Silverman Pre-op testing; 10/07/2021 Care Unit - Kyree Holder MD Abdominal aortic aneurysm (AAA) without rupture; Mariama Mcdonald [facility] Uncontrolled hypertension [facility] [address] SUR[place]ERY [place], [place] [id number] [phone] Social History Tobacco Use Types Packs/Day Years [...] Sign Reading Time Taken Comments Blood Pressure 132/61 10/07/2021 1:00 PM EDT Pulse 101 10/03/2021 8:15 PM EDT Temperature 36.9 ??C (98.4 ??F) 10/07/2021 1:00 PM EDT Respiratory Rate 18 10/07/2021 1:00 PM EDT Oxygen Saturation 97% 10/07/2021 1:00 PM EDT Inhaled Oxygen Concentration - - Weight 45.9 kg (101 lb 3.2 oz) 10/01/2021 7:10 AM EDT Height 152.4 cm (5') 10/01/2021 7:10 AM EDT Body Mass Index 19.76 10/01/2021 7:10 AM EDT documented in this encounter Discharge Summaries Candida Velez APRN - 10/07/2021 11:48 AM EDT Inpatient - Discharge Summary Patient Name: Pretty Harmon Patient Age: 70 y.o. Birthdate: 1950 Admit date: 10/01/2021 Discharge date and time: 10/07/2021 Attending Physician: Greyson Silverman MD Discharging Provider: Candida Velez APRN Discharging Service: Vascular Surgery Operations/Major Procedures: 10/01/2021: Bilateral ultrasound guided??large bore??common femoral artery access for endograft delivery??(R 14F, L 18F) One??vessel physician modified aortic endograft repair Active Hospital Problems: Active Hospital Problems Diagnosis ??? GAEL (acute kidney injury) ??? Abdominal aortic aneurysm (AAA) without rupture Resolved Hospital Problems No resolved problems to display. Active Non Hospital Problems: Active Non-Hospital Problems Diagnosis ??? SBO (small bowel obstruction) ??? Pulmonary hypertension ??? Pre-transplant evaluation for CKD (chronic kidney disease) ??? Uncontrolled hypertension ??? Anemia of chronic renal failure, stage 4 (severe) ??? Chest pain ??? Hypertensive urgency ??? Systolic HF (heart failure) ??? CKD (chronic kidney disease) stage 5, GFR less than 15 ml/min ??? Hypertensive urgency ??? Renal artery stenosis ??? Viral hepatitis B acute History of Presentation: Pretty Harmon is a 70 year odl woman with a history of a right renal artery bypass with vein (Right external iliac to right renal artery bypass with reversed right greater saphenous vein) on 09/07/2018 for flash pulmonary edema and elevated Cr to baseline 1.9. She has a known abdominal aortic aneurysm thathas enlarged and is now 5.6 cm in diameter. She has been doing well since her last clinic visit. Hospital Course: In surgery, findings of: Anatomy consistent with pre-operative imaging. Bilateral percutaneous femoral arterial access (14Fr right,??18Fr left).?? Successful repair??of??abdominal??aortic aneurysm with physician modified aortic endograft ?-Thoracic component - Cook [employer]ith Alpha??[id number]??via left groin ?- Visceral component - Cook [employer]ith Alpha??[id number]??via left groin ?- SMA -??10??x 39??mm??VBX, proximally flared??12??mm ?- Distal extension ?- Nadia [id number] main body, left ?-??Nadia [id number] right limbextension Patent bilateral hypogastric artery Good hemostasis with bilateral pre-close technique (right x??2, left x??2). Bilateral??warm feet with??palpable??DP/PT??bilaterally Neuro exam normal at the completion of the case. Patient moving all four extremities to command.? Patient admitted to SICU for post operative observation and management. Lumbar drained clamped, remained neurologically stable and drain was removed PM of POD1. Patient required Phenylephrine to maintain MAP goals, distributive shock secondary to surgery on POD1. Creatinine 1.9 on admission and boaz to peak of 2.76, GAEL likely secondary to operative contrast administration. Creatinine 2.41 on day of discharge. Leukocytosis up to 26.8 on POD 3, work up negative, to include flexible sigmoidoscopy. WBCdown trending and at discharge WBC 11.7. Patient downgraded to floor status on POD 2. Patient voiding adequate amounts, tolerating PO, minimal pain and remained afebrile and hemodynamically stable. Patient is medically ready for discharge to home and will follow up in Vascular Surgery in one month with CT noncon study of CAP, renal, mesenteric and aortic duplex. Will have creatinine check with PCP lorena estrella and creatinine check on morning of scheduled vascular follow up. Physical Exam General:??resting comfortably, no acute distress HEENT:??normocephalic, atraumatic CVS:??regular rate Pulm:??non-labored breathing on RA Abd:??soft, non tender, mildly distended and tympanitic Ext:??warm and well perfused. Bilateral groin access sites c/d/i without hematoma or strike-through. Neuro: no focal deficits. 2/2 sensation and 5/5 strength in BUE and BLE. Vascular:??Palpable DP/PT bilaterally Important Studies and Lab Data: Labs: Lab Results Component Value Date WBC 11.7 (H) 10/07/2021 RBC 3.88 (L) 10/07/2021 HGB 10.0 (L) 10/07/2021 HCT 30.4 (L) 10/07/2021 MCV 78.4 (L) 10/07/2021 MCH 25.8 (L) 10/07/2021 MCHC 32.9 10/07/2021 PLATELET 272 10/07/2021 RDWCV 17.6 (H) 10/07/2021 Lab Results Component Value Date Sodium 132 (L) 10/07/2021 Potassium 3.5 10/07/2021 Chloride 95 (L) 10/07/2021 CO2 20 (L) 10/07/2021 BUN 43 (H) 10/07/2021 Creatinine 2.41 (H) 10/07/2021 Glucose Lvl 91 10/07/2021 Discharge Condition: Good Discharge to: Home Future Appointments and Orders Future Appointments and Orders Future Appointments Provider Department Dept Phone 10/30/2021 7:00 AM LAB, THREE L Lab 3L [facility] Arrive at: [employer] [facility] 10/30/2021 7:30 AM Lola Willoughby RVT Vascular Lab at [facility] Arrive at: [employer] [facility] [employer] [facility] 10/30/2021 9:[address] [facility] CT 4 CT Scan at [facility] [place] [facility] Arrive at: 3 RADIOLOGY [phone] Please arrive at the Lab 1 Hour and 15 Minutes prior to your scheduled time if your labs need to betaken. 10/30/2021 10:00 AM Heladio Rowe RVT Vascular Lab at [facility] Arrive at: [facility] [facility] [employer] [phone] 10/30/2021 1:00 PM Greyson Silverman MD Vascular Surgery at [facility] [place] [facility] Arrive at: [employer] [facility] [employer] [facility] 11/28/2021 10:40 AM LAB, THREE L Lab [address] [place] [address] Arrive at: [employer] [facility] [phone] 11/28/2021 11:20 AM DriverBenjamin; Tyron Kemp MD Nephrology Hypertension at [facility] [place] [facility] Arrive at: [employer] [facility] [employer] [facility] [phone] Future Orders Complete By Expires AAA Duplex, Complete/Bilateral [VAS51 Custom] 11/06/2021 (Approximate) 05/08/2022 Process Instructions: There is no in-house vascular clinical genetics laboratory chief available on weeknights (5pm-8am), weekends, or holidays. IF THIS IS A REQUEST FOR AN EMERGENT STUDY DURING THOSE HOURS, please have the senior provider responsible for the patient page the Vascular Surgery Fellow/Senior Resident fire control technician g to discuss options. Scheduling Instructions: Questions: Indication for study/signs & symptoms: [place] PMEG Question to be answered: aorta with endoleak? Preferred location?: [facility] [place] [facility] Clinics Creatinine [LAB66 Custom] 11/06/2021 05/08/2022 Process Instructions: Scheduling Instructions: Comments: Questions: CT Chest Abdomen Pelvis w Contrast (Generic) [[id number] Custom] 11/06/2021 05/08/2022 Process Instructions: Scheduling Instructions: Questions: Clinical information / burgess questions for radiologist: NON CONTRAST ONLY Where will study be performed?: [facility] Radiology Stat read required?: Does patient require sedation?: GA rationale: Date of injury if applicable: Duplex Study Visceral Arteries, Comp [VAS54 Custom] 11/06/2021 (Approximate) 05/08/2022 Process Instructions: There is no in-house vascular clinical genetics laboratory chief available on weeknights (5pm-8am), weekends, or holidays. IF THIS IS A REQUEST FOR AN EMERGENT STUDY DURING THOSE HOURS, please have the senior provider responsible for the patient page the Vascular Surgery Fellow/Senior Resident fire control technician g to discuss options. Scheduling Instructions: Questions: Indication for study/signs & symptoms: SMA artery with PMEG Dr. Silverman Question to be answered: patent? stenosis? Preferred location?: [facility] Renal Artery Duplex, Unil [VAS48 Custom] 11/06/2021 05/08/2022 Process Instructions: There is no in-house vascular clinical genetics laboratory chief available on weeknights (5pm-8am), weekends, or holidays. IF THIS IS A REQUEST FOR AN EMERGENT STUDY DURING THOSE HOURS, please have the senior provider responsible for the patient page the Vascular Surgery Fellow/Senior Resident fire control technician g to discuss options. Scheduling Instructions: Questions: Laterality: Right Indication for study/signs & symptoms: s/p PMEG Question to be answered: right renal artery bypass with PMEG Preferred location?: [facility] Anticoagulation & Antiplatelet: Anticoagulation: none Antiplatelet: Agent: ASA Indication: ASCVD Intended Duration: systems development manager For questions regarding these medications, please contact: PCP, Vascular Surgery Discharge Medications: Your Medications Continued medications, unchanged Dose Details acetaminophen 500 mg Tab Commonly known as: Tylenol Take 1 tablet by mouth every 6 hours. 500 mg Quantity: 30 tablet Refills: 1 amLODIPine 5 mg Tab Commonly known as: Norvasc Take 1 tablet by mouth daily. 5 mg Quantity: 90 tablet Refills: 1 aspirin EC 81 mg Tbec Take 81 mg by mouth daily. 81 mg Refills: 0 atorvastatin 20 mg Tab Commonly known as: Lipitor Take 1 tablet by mouth every evening. 20 mg Quantity: 90 tablet Refills: 3 carvediloL 12.5 mg Tab Commonly known as: Coreg Take 1 tablet by mouth 2 times daily (with meals). 12.5 mg Quantity: 180 tablet Refills: 3 cimetidine 400 mg Tab Commonly known as: TAGAMET Take 400 mg by mouth 2 times daily. 400 mg Refills: 0 cloNIDine 0.1 mg Tab Commonly known as: Catapres Take 1 tablet by mouth every 8 hours as needed (Please take 1 tablet, if systolic blood pressure is >200). 0.1 mg Quantity: 30 tablet Refills: 3 furosemide 20 mg Tab Commonly known as: Lasix Take 20 mg by mouth 2 times daily. Takes at 0800 and 1600 20 mg Refills: 0 gabapentin 100 mg Cap Commonly known as: Neurontin Take 300 mg by mouth nightly. 300 mg Refills: 0 hydrALAZINE 25 mg Tab Commonly known as: Apresoline Take 1 tablet by mouth 3 times daily. 25 mg Quantity: 270 tablet Refills: 3 isosorbide dinitrate 20 mg Tab Commonly known as: ISORDIL Take 1 tablet by mouth 3 times daily. 20 mg Quantity: 270 tablet Refills: 3 levothyroxine 75 mcg Tab Commonly known as: Synthroid Take 1 tablet by mouth daily. 75 mcg Quantity: 90 tablet Refills: 3 traZODone 150 mg Tab Commonly known as: Desyrel TAKE ONE TABLET BY MOUTH AT BEDTIME NEEDED FOR SLEEP Refills: 0 Updated Allergies/ADRs: No Known Allergies Follow-up Recommendations for Providers: 4 week CTA Instructions Given to Patient at Discharge: Patient Instructions You were admitted to [facility] [place] [facility] after having your aortic aneurysm repaired with a physician modified endograft. This all went very well and your postoperative course was uncomplicated. Your surgeon will wantyou to be seen in approximately one month with a CT scan. This will be scheduled and sent to you in the mail. Please call our office at the number below if you don't receive this appointment in a week as your follow up is very important. YOU SHOULD RECEIVE A PHONE CALL FROM NEPHROLOGY CLINIC TODAY OR TOMORROW TO SEE IF YOUR APPT CAN BE MOVED FORWARD YOU NEED TO HAVE A CREATININE CHECKED BY YOUR PCP NEXT WEEK. YOU WILL NEED TO STOP AT 3L FOR A BLOOD DRAW PRIOR TO YOUR STUDIES THAT ARE BEING DONE AT YOUR FOLLOW UP APPOINTMENT WITH DR. SILVERMAN IN ONE MONTH. Call your doctor if: Any abdominal or back pain, any issue of redness, swelling or separation of your incision or puncture sites in your groin, any nausea or vomiting or any fever. Activity level: up as tolerated but take it easy for a week or so. Diet: regular Driving: ok in a week or so if driving before and you feel perfect. NONE if requiring any pain medication Shower/Bath: showering is fine Wound Care: wash in a shower with soap and water, pat dry. Remove any dressings if they remain 1-2 days after your operation, then no need to cover. For any problems or questions please call [phone] For issues on weeknights after 5pm and weekends please call [phone] and ask for the Vascular Fellow fire control technician g. documented in this encounter Discharge Instructions Patient InstructionsToCandida de leon, FIELD SERVICE ANALYST - 10/04/2021 10:22 AM EDT You were admitted to [facility] [place] [facility] after having your aortic aneurysm repaired with a physician modified endograft. This all went very well and your postoperative course was uncomplicated. Your surgeon will wantyou to be seen in approximately one month with a CT scan. This will be scheduled and sent to you in the mail. Please call our office at the number below if you don't receive this appointment in a week as your follow up is very important. YOU SHOULD RECEIVE A PHONE CALL FROM NEPHROLOGY CLINIC TODAY OR TOMORROW TO SEE IF YOUR APPT CAN BE MOVED FORWARD YOU NEED TO HAVE A CREATININE CHECKED BY YOUR PCP NEXT WEEK. YOU WILL NEED TO STOP AT 3L FOR A BLOOD DRAW PRIOR TO YOUR STUDIES THAT ARE BEING DONE AT YOUR FOLLOW UP APPOINTMENT WITH DR. SILVERMAN IN ONE MONTH. Call your doctor if: Any abdominal or back pain, any issue of redness, swelling or separation of your incision or puncture sites in your groin, any nausea or vomiting or any fever. Activity level: up as tolerated but take it easy for a week or so. Diet: regular Driving: ok in a week or so if driving before and you feel perfect. NONE if requiring any pain medication Shower/Bath: showering is fine Wound Care: wash in a shower with soap and water, pat dry. Remove any dressings if they remain 1-2 days after your operation, then no need to cover. For any problems or questions please call [phone] For issues on weeknights after 5pm and weekends please call [phone] and ask for the Vascular Fellow fire control technician g. documented in this encounter Medications at Time [...] documented as of this encounter Progress Notes Leah Heck RN - 10/07/2021 2:10 PM EDT Pt d/c to home per md order. Patient A&O x4, ambulating independently. All LDA's removed and belongings home with patient. Discharge instructions reviewed with patient, questions answered. Please see flowsheet for full assessment. Geri Curran, OT - 10/07/2021 12:59 PM EDT Occupational Therapy Evaluation Patient Profile: Pretty Harmon??is a 70 y.o.??female??now s/p PMEG with 1 vessel fenestration (SMA) on10/01, currently recovering well. ?? Past Medical History Past Medical History: Diagnosis Date ??? AAA (abdominal aortic aneurysm) ? [id number] angiogram; 3.2 cm infrarenal ??? Constipation ? Dyslipidemia ? Hypertension ? Insomnia ? Peripheral vascular disease ? Renal artery stenosis ? R; per 2009 angiogram ??? SBO (small bowel obstruction) ? Social History: Patient lives with her in a two-level home with 2 MIRZA. Bedroom and bathroom (with walk-in shower) are upstairs, there is also a bedroom and half bath on first floor. At her baseline, patient is independent in all aspects. She drives and enjoys gardening. ?? Precautions/Special Considerations: Fall Risk, act as sheri, therapeutic walks q shift Subjective: I am ready to get out of here! Objective: Seen today for OT evaluation. Vital Signs: o HR: 63 bpm o SpO2: 98% on RA o BP: 140/68 mmHg Pain: c/o achy bones d/t being sedentary Skin: intact Cognitive Status/Behavior: o Behavior / Mood: alert and cooperative o Alert and oriented to: person, place, time and situation o Follows commands: 1 step, 2 step and 100% of the time o Attention: WFL o Safety awareness: WFL Vision & Perception: o WNL/WFL, wears reading glasses Communication/Hearing: o Hearing WFL bilaterally Musculoskeletal: o ROM: B UE & LE functional o Strength: B UE & LE functional Activities of Daily Living: o Self-feeding: independent o Grooming: not tested, anticipate independent in standing o Dressing: independent with LB dressing seated EOB o Bathing: not tested, anticipate independent, pt has a walk in shower at home o Toileting: not tested, anticipate independent Functional Mobility: o Supine <> Sit: independent o Sit <> Stand: independent o Transfers: independent o Ambulation: independent, 200 ft Balance: o Sitting Static: good o Sitting Dynamic: good o Standing Static: good o Standing Dynamic / Gait: good Education: Patient has been educated on Role of occupational therapy and rehabilitation, Transfers, ADL's, Positioning, Safety, Functional Mobility, Activity pacing/Energy conservation training, Balance, DME Recommendations, Safe ROM/Exercise, and Discharge planning. Patient verbalized understanding. Patient status, treatment, and activity/mobility recommendations discussed with nursing. Assessment: Pt has been seen for occupational therapy evaluation. Pretty Haromn presents with the following performance skill deficits and client factors: increased pain, precautions/bracing and skin integrity. These performance deficits have led to activity limitations and participation restrictions inthe following areas of occupation: home management, leisure and driving. However, despite the deficits listed above pt demonstrates the ability to complete basic self-care and functional mobility tasksindependently within hospital environment. Pt instructed to modify activities at home as not to overdo it (very motivated to return to gardening). Pt's available to assist within home environment as needed. Anticipate that pt will return home with assistance once medically ready. Do not anticipate further OT needs while hospitalized. Equipment needs at discharge: not tested Anticipated Discharge Disposition (OT): home Activity Recommendations: ?? Promote normalcy by encouraging participation in common daily tasks & leisure activities by providing set up assist ?? Encourage use of coping & calming strategies ?? Give choices when possible to support feelings of autonomy ?? Frequent orientation verbally & visually ?? Keep glasses, hearing aides, cell phones, tablets, etc within reach ?? Facilitate a normal sleep-wake cycle ?? Provide brief, clear instruction from one source at a time ?? Reduce extraneous stimulation ?? Provide calming music, favorite TV programs, magazines or newspapers ?? Bathroom or commode for toileting needs vs. Using urinal & bed abad ?? Utilize upright chair position using bed features or transfer to recliner chair as appropriate (independently) OT: Therapy Frequency (OT): 2-3 times/wk Planned OT interventions: Role of occupational therapy/rehabilitation, Transfers, Assistive device/technique, Adaptive equipment training, ADL, Exercise, Breathing exercises, Positioning, Safety, Precautions/Protocol, Brace Management, Car Transfers, Functional Mobility, Activity pacing/Energy conserva tion, Home Program, Home Management, Balance, Recommendations, Family training, and Discharge planning. 2017 OT Evaluation Code Rationale: Diagnosis & Pertinent Co-Morbidities affecting Plan of Care: see PMHx Occupational Profile & Client History: Brief Expanded Extensive x Assessment of Occupational Performance: 1-3 performance deficits x 3-5 performance deficits 5 + performance deficits Clinical Decision Making: Low Moderate High x Clinical decision making of low complexity using standardized patient assessment instrument and measurable assessment of functional outcome. 15 minutes; evaluation Bella Curran OT #[id number] Elma Saab, PT - 10/07/2021 9:01 AM EDT Images from the original note were not included. Physical Therapy Evaluation Patient profile: Pretty Harmon is a 70 y.o. female now s/p PMEG with 1 vessel fenestration (SMA) on 10/01, currently recovering well. Patient with the following active problems: Past Medical History: Diagnosis Date ??? AAA (abdominal aortic aneurysm) [id number] angiogram; 3.2 cm infrarenal ??? Constipation ??? Dyslipidemia ??? Hypertension ??? Insomnia ??? Peripheral vascular disease ??? Renal artery stenosis R; per 2009 angiogram ??? SBO (small bowel obstruction) Past Surgical History: Procedure Laterality Date ??? HYSTERECTOMY ? ? PRO CATHETER 1ST ORDER W/WO ART PUNCT/FLUORO/S&I BILATERAL Bilateral 09/01/[address] (FIRST-ORDER), MAIN RENAL ART & ANY ACC, W/S&I; ANDREY (WRVU 6.99) performedby Greyson Chen MD at [facility] MAIN OR ??? PRO EXPLORATION OF ABDOMEN N/A 04/26/2020 @EXPLORATORY LAPAROTOMY, WITH/WITHOUT BIOPSY(S) (WRVU 12.54) performed by Edwin Hwang MD at [facility] MAIN OR ??? PRO SIGMOIDOSCOPY, DIAGNOSTIC N/A 10/03/2021 FLEXIBLE SIGMOIDOSCOPY performed by Silver Rossi MD at [facility] ENDOSCOPY ??? PRO UPPER GI ENDOSCOPY, DIAGNOSTIC 01/20/2014 EGD, UPPER GI ENDOSCOPY performed [facility] [facility] ??? PRO UPPER GI ENDOSCOPY, DIAGNOSTIC N/A 07/28/2017 EGD, UPPER GI ENDOSCOPY performed by Snow Liao MD at [facility] ??? PRO VEIN BYPASS GRAFT, AORTOILIOFEMORAL N/A 09/07/2018 @BYPASS GRAFT, AORTOILIAC W\ VEIN CONDUIT (WRVU 41.88) performed by Isac Moody MD at [facility] MAIN OR ??? PRO VISCERAL AND INFRARENAL ABDOM AORTA ONE PROSTHESIS N/A 10/01/2021 @EVG REPAIR VISCERAL & INFRARENAL ABDML AORTA,FENESTRATED,ONE ARTERY,INC. S&I (WRVU 77.3) performed by Greyson Silverman MD at [facility] MAIN OR ??? VS ARTERIOGRAM RENAL VASCULAR SURGERY 08/01/2021 VS Arteriogram Renal Vascular Surgery 08/01/[address] [facility] INTERVENTIONL RAD Social History: Patient lives with her in a two-level home with 2 MIRZA. Bedroom and bathroom (with walk-in shower) are upstairs, there is also a bedroom as well as a half bath downstairs. At her baseline, patient is independent in all aspects. She drives and enjoys gardening. Precautions/Special Considerations: Fall Risk, act as sheri, therapeutic walks q shift Mobility and Positioning Recommendations: ?? Pt mobilizes with supervision ?? Please encourage up to chair for meal times as able. ?? Pt encouraged to ambulate frequently with staff, getting into the bathroom for toileting and walking out in the pacheco >/= 3 times daily as able. Subjective: ???I am hoping to go home soon Objective: Pt seen for PT evaluation today. Pain: denied Vital Signs: HR 63 SpO2 98% ora BP 140/68 (84) Mental Status: alert, oriented to person, place, and time Vision: wears glasses Musculoskeletal: ROM: BLE WFL Strength: BLE WFL Sensation: BLE WFL Bed Mobility: Supine to Sit: independent Sit to Supine: independent Transfers: Sit to Stand: supervision Stand to Sit: supervision Bed to Chair: supervision Able to sit EOB unassisted Gait: Distance: 250 ft Device used: none Level of assist: supervision Gait mechanics: reciprocal, steady Balance: Sitting Static: good Sitting Dynamic: good Standing Static: good Standing Dynamic / Gait: good Education: Patient has been educated on Activity pacing/Energy conservation, Role of therapy and Discharge planning and verbalizes understanding. Patient status, treatment, and mobility recommendations discussed with nursing. Assessment: Pretty Harmon was seen today for physical therapy evaluation s/p PMEG with 1 vessel fenestration (SMA) on 10/01 and was able to transfer in and out of bed, stand, and ambulate up and down the hallways (~250 ft) without assistance in a reciprocal and steady gait. Patient was educated on pacing her activities at home following discharge and verbalized understanding. She had no questions or concerns related to PT and reports she is hoping to be able to return home soon. No further inpatient PT need identified, please continue to encourage daily walks. Discharge Recommendations: Based on the current findings, Anticipated Discharge Disposition (PT): home when medically ready forhospital discharge. Consult Recommendations: No other consults recommended at this time. Equipment needs: No equipment necessary Plan: Therapy Frequency (PT): evaluation only 2017 PT Evaluation Code Rationale: ?? Diagnosis & Pertinent Co-Morbidities, personal factors, and present illness affecting Plan ofCare: (see above); Additional personal factors or co- morbidities that impact plan: ?? Total # of Factors: 0 1-2 3+ x ?? Examination of body system impairments, functional limitations and behaviors, and/or participation restrictions. Addressing 1-2 elements x Addressing 3 + elements Addressing 4 + elements ?? Clinical presentation: See assessment above. Stable/Uncomplicated Evolving/Fluctuating Symptoms Unstable/Unpredictable x ?? Clinical decision making of low complexity based on pt's functional performance as outlined in this evaluation. Time IN / OUT: Elma Saab DPT Board-Certified Clinical Specialist in Geriatric Physical Therapy Board-Certified Clinical Specialist in Neurologic Physical Therapy Inpatient/outpatient Rehab [facility] Candida Velez APRN - 10/06/2021 6:52 AM EDT Vascular Surgery Progress Note Patient Name: Pretty Harmon Patient Age: 70 y.o. Birthdate: 1950 Admit date: 10/01/2021 Attending Physician: Greyson Silverman MD Patient ID Pretty Harmon is a 70 year old woman with a history of a right renal artery bypass with vein (Right external iliac to right renal artery bypass with reversed right greater saphenous vein) on 09/07/2018 for flash pulmonary edema and elevated Cr to baseline 1.9. She has a known abdominal aortic aneurysm thathas enlarged and is now 5.6 cm in diameter. She has been doing well since her last clinic visit. ?? Operations This Hospitalization Bilateral ultrasound guided large bore common femoral artery access for endograft delivery (R 14F, L18F) One vessel physician modified aortic endograft repair 24-Hour Events Doing well. Tolerating diet. No abdominal pain. No fevers. Feels well. Creat 2.76 today WBC 15.5 Medications: ??? hydrALAZINE 25 mg Oral TID ??? bisacodyL 10 mg Rectal Daily ??? polyethylene glycoL (MIRALAX) oral powder 17 g Oral Daily ??? amLODIPine 5 mg Oral Daily ??? carvediloL 12.5 mg Oral BID ??? furosemide 20 mg Oral BID ??? senna-docusate 2 tablet Oral BID ??? heparin (porcine) 5,000 Units Subcutaneous Q8H WILFRED ??? aspirin EC 81 mg Oral Daily ??? atorvastatin 20 mg Oral QPM ??? gabapentin 300 mg Oral Nightly ??? isosorbide dinitrate 20 mg Oral TID ??? acetaminophen 1,000 mg Oral Q6H WILFRED ??? levothyroxine 50 mcg Oral QAM Vitals: T Temp: 36.9 ??C (98.5 ??F) Temp: [36.9 ??C (98.4 ??F)-37.3 ??C (99.1 ??F)] HR Heart Rate: (!) 101 Heart Rate: -- BP BP: 143/66 BP: (123-146)/(59-97) RR Resp: 14 Resp: [14-18] SpO2 SpO2: 96 % SpO2: [95 %-97 %] 24-Hour Ins and Outs (I/O) 10/05 0701 - 10/06 0700 In: 1450 [P.O.:1450] Out: 1800 [Urine:1800] Physical Exam General: resting comfortably, no acute distress HEENT: normocephalic, atraumatic CVS: regular rate Pulm: non-labored breathing on RA Abd: soft, non tender, mildly distended and tympanitic Ext: warm and well perfused. Bilateral groin access sites c/d/i without hematoma or strike-through. Neuro: no focal deficits. 2/2 sensation and 5/5 strength in BUE and BLE. Vascular: Palpable DP/PT bilaterally Labs Recent Labs 10/06/2131410/05/210 10/04/21 0120 WBC 15.5* 22.4* 26.8* HGB 9.3* 8.4* 10.2* HCT 27.3* 25.3* 31.6* PLATELET 210 154 153 Recent Labs 10/06/2131410/05/21 0100 10/04/21 0120 NA 134* 130* 131* K 3.7 4.1 3.7 CL 97* 95* 95* CO2 23 25 22 BUN 42* 39* 34* CREATININE 2.76* 2.54* 2.47* GLUCOSE 91 108 90 Recent Labs 10/03/21 011 AST 58* ALT 27 ALKPHOS 75 BILITOT 0.4 BILIDIR 0.1 Recent Labs 10/06/2131410/05/21 0100 10/04/21 0120 10/03/21 0905 10/03/21 0115 10/02/21 0030 CALCIUM 8.1* 7.8* 8.3* < > 8.2* 8.1* PHOS -- -- -- -- 3.6 4.1 MAGNESIUM -- -- -- -- 1.23* 0.77 < > = values in this interval not displayed. No results for input(s): PT, PTT, INR in the last 168 hours. Recent Labs 10/01/21 0939 PHART 7.38 [id number] 41 PO2ART 276* [id number] 23.3 Vascular Studies None pertinent Problem List Active Hospital Problems Diagnosis ??? Abdominal aortic aneurysm (AAA) without rupture Resolved Hospital Problems No resolved problems to display. Assessment & Plan Pretty Harmon is a 70 y.o. female now s/p PMEG with 1 vessel fenestration (SMA) on 10/01, currently recovering well. Leukocytosis downtrending. Workup has been negative Cr increased to 2.76 from 2.54 yesterday Regular diet Reintroduce home antihypertensives slowly,currently on Coreg, Norvasc and hydralyzine BP currently at goal OOB/ambulate ASA, statin, SQH Candida Velez APRN Vascular Surgery Pager: [phone] 10/06/21 Arabella Walden MD - 10/05/2021 7:49 AM EDT Vascular Surgery Progress Note Patient Name: Pretty Harmon Patient Age: 70 y.o. Birthdate: 1950 Admit date: 10/01/2021 Attending Physician: Greyson Silverman MD Patient ID Pretty Harmon is a 70 year old woman with a history of a right renal artery bypass with vein (Right external iliac to right renal artery bypass with reversed right greater saphenous vein) on 09/07/2018 for flash pulmonary edema and elevated Cr to baseline 1.9. She has a known abdominal aortic aneurysm thathas enlarged and is now 5.6 cm in diameter. She has been doing well since her last clinic visit. ?? Operations This Hospitalization Bilateral ultrasound guided large bore common femoral artery access for endograft delivery (R 14F, L18F) One vessel physician modified aortic endograft repair 24-Hour Events Doing well. Tolerating diet. No abdominal pain. No fevers. Feels well. Medications: ??? hydrALAZINE 25 mg Oral TID ??? bisacodyL 10 mg Rectal Daily ??? polyethylene glycoL (MIRALAX) oral powder 17 g Oral Daily ??? amLODIPine 5 mg Oral Daily ??? carvediloL 12.5 mg Oral BID ??? furosemide 20 mg Oral BID ??? senna-docusate 2 tablet Oral BID ??? heparin (porcine) 5,000 Units Subcutaneous Q8H WILFRED ??? aspirin EC 81 mg Oral Daily ??? atorvastatin 20 mg Oral QPM ??? gabapentin 300 mg Oral Nightly ??? isosorbide dinitrate 20 mg Oral TID ??? acetaminophen 1,000 mg Oral Q6H WILFRED ??? levothyroxine 50 mcg Oral QAM Vitals: T Temp: 36.8 ??C (98.2 ??F) Temp: [36.4 ??C (97.5 ??F)-37.1 ??C (98.8 ??F)] HR Heart Rate: (!) 101 Heart Rate: -- BP BP: 132/62 BP: (122-155)/(57-71) RR Resp: 22 Resp: [18-22] SpO2 SpO2: 96 % SpO2: [92 %-96 %] 24-Hour Ins and Outs (I/O) 10/04 0701 - 10/05 0700 In: 1450 [P.O.:1450] Out: 1460 [Urine:1460] Physical Exam General: resting comfortably, no acute distress HEENT: normocephalic, atraumatic CVS: regular rate Pulm: non-labored breathing on RA Abd: soft, non tender, mildly distended and tympanitic Ext: warm and well perfused. Bilateral groin access sites c/d/i without hematoma or strike-through. Neuro: no focal deficits. 2/2 sensation and 5/5 strength in BUE and BLE. Epidural site c/d Vascular: Palpable DP/PT bilaterally Labs Recent Labs 10/05/21 0100 10/04/21 0120 10/03/21 0905 WBC 22.4* 26.8* 24.2* HGB 8.4* 10.2* 11.7 HCT 25.3* 31.6* 35.3* PLATELET 154 153 142* Recent Labs 10/05/21 0100 10/04/21 0120 10/03/21 1415 10/03/21 0905 NA 130* 131* 131* 128* K 4.1 3.7 3.9 Not Perf CL 95* 95* 95* 92* CO2 25 22 24 23 BUN 39* 34* -- 33* CREATININE 2.54* 2.47* -- 2.41* GLUCOSE 108 90 -- 110 Recent Labs 10/03/21 0115 AST 58* ALT 27 ALKPHOS 75 BILITOT 0.4 BILIDIR 0.1 Recent Labs 10/05/21 0100 10/04/21 0120 10/03/21 0905 10/03/21 0115 10/02/21 0030 CALCIUM 7.8* 8.3* 8.4* 8.2* 8.1* PHOS -- -- -- 3.6 4.1 MAGNESIUM -- -- -- 1.23* 0.77 No results for input(s): PT, PTT, INR in the last 168 hours. Recent Labs 10/01/21 0939 PHART 7.38 [id number] 41 PO2ART 276* [id number] 23.3 Vascular Studies None pertinent Problem List Active Hospital Problems Diagnosis ??? Abdominal aortic aneurysm (AAA) without rupture Resolved Hospital Problems No resolved problems to display. Assessment & Plan Pretty Harmon is a 70 y.o. female now s/p PMEG with 1 vessel fenestration (SMA) on 10/01, currently recovering well. Leukocytosis downtrending. Workup has been negative Cr starting to plateau, 2.54 this AM from 2.47. Regular diet Reintroduce home antihypertensives slowly, hydralazine started 10/04, BP currently at goal OOB/ambulate ASA, statin, SQH Arabella Walden MD Vascular Surgery Pager: [phone] 10/05/21 Bry Valentin MD - 10/04/2021 9:17 AM EDT Vascular Surgery Progress Note Patient Name: Pretty Harmon Patient Age: 70 y.o. Birthdate: 1950 Admit date: 10/01/2021 Attending Physician: Greyson Silveramn MD Patient ID Pretty Harmon is a 70 year old woman with a history of a right renal artery bypass with vein (Right external iliac to right renal artery bypass with reversed right greater saphenous vein) on 09/07/2018 for flash pulmonary edema and elevated Cr to baseline 1.9. She has a known abdominal aortic aneurysm thathas enlarged and is now 5.6 cm in diameter. She has been doing well since her last clinic visit. ?? Operations This Hospitalization Bilateral ultrasound guided large bore common femoral artery access for endograft delivery (R 14F, L18F) One vessel physician modified aortic endograft repair 24-Hour Events AVSS, weaned to room air, UOP adequate, had a BM yesterday. WBC spiking this morning, CT performed wno clear source. Tolerating clears. Medications: ??? hydrALAZINE 25 mg Oral TID ??? potassium chloride ER 20 mEq Oral Once ??? amLODIPine 5 mg Oral Daily ??? carvediloL 12.5 mg Oral BID ??? furosemide 20 mg Oral BID ??? senna-docusate 2 tablet Oral BID ??? heparin (porcine) 5,000 Units Subcutaneous Q8H WILFRED ??? aspirin EC 81 mg Oral Daily ??? atorvastatin 20 mg Oral QPM ??? gabapentin 300 mg Oral Nightly ??? isosorbide dinitrate 20 mg Oral TID ??? acetaminophen 1,000 mg Oral Q6H WILFRED ??? levothyroxine 50 mcg Oral QAM Vitals: T Temp: 36.7 ??C (98.1 ??F) Temp: [36.6 ??C (97.9 ??F)-37.6 ??C (99.7 ??F)] HR Heart Rate: (!) 101 Heart Rate: [80-101] BP BP: 155/71 BP: (132-160)/(64-78) RR Resp: 18 Resp: [12-22] SpO2 SpO2: 92 % SpO2: [92 %-98 %] 24-Hour Ins and Outs (I/O) 10/03 07 - 10/04 0700 In: 1496 [P.O.:760; I.V.:736] Out: 2450 [Urine:2450] Physical Exam General: resting comfortably, no acute distress HEENT: normocephalic, atraumatic CVS: regular rate Pulm: non-labored breathing on RA Abd: soft, non tender, mildly distended and tympanitic Ext: warm and well perfused. Bilateral groin access sites c/d/i without hematoma or strike-through. Neuro: no focal deficits. 2/2 sensation and 5/5 strength in BUE and BLE. Epidural site c/d Vascular: Palpable femoral, DP and PT pulses bilaterally Labs Recent Labs 10/04/2111910/03/21 0910/03/21 0115 WBC 26.8* 24.2* 23.3* HGB 10.2* 11.7 11.2* HCT 31.6* 35.3* 33.9* PLATELET 153 142* 159 Recent Labs 10/04/21 01210/03/21 1415 10/03/21 0910/03/21 0115 NA 131* 131* 128* 130* K 3.7 3.9 Not Perf 4.0 CL 95* 95* 92* 92* CO2 22 24 23 25 BUN 34* -- 33* 31* CREATININE 2.47* -- 2.41* 2.37* GLUCOSE 90 -- 110 124 Recent Labs 10/03/21 0115 AST 58* ALT 27 ALKPHOS 75 BILITOT 0.4 BILIDIR 0.1 Recent Labs 10/04/21 01210/03/21 0910/03/21 0115 10/02/21 0030 CALCIUM 8.3* 8.4* 8.2* 8.1* PHOS -- -- 3.6 4.1 MAGNESIUM -- -- 1.23* 0.77 No results for input(s): PT, PTT, INR in the last 168 hours. Recent Labs 10/01/21 0939 PHART 7.38 [id number] 41 PO2ART 276* [id number] 23.3 Vascular Studies None pertinent Problem List Active Hospital Problems Diagnosis ??? Abdominal aortic aneurysm (AAA) without rupture Resolved Hospital Problems No resolved problems to display. Assessment & Plan Pretty Harmon is a 70 y.o. female now 1 Day Post-Op s/p PMEG with 1 vessel fenestration (SMA), currently recovering well. Her leukocytosis continues to worsen, despite a negative scope yesterday, so we will perform cross sectional imaging and if appropriate, advance diet. - FLOOR status - STAT CT AP this am - regular diet - reintroduce home antihypertensives slowly, hydralizine today - Activity as tolerated - ASA, statin, SQH - pain, bowel regimen Bry Valentin MD Vascular Surgery Pager: [phone] 10/04/21 Lianna Harrison RN - 10/03/2021 3:29 PM EDT Patient alert and oriented; VSs stable on 1L O2. Patient denies pain, N/V s/p flexible sigmoidoscopy. Report given to RN. Bairon Swanson MD - 10/03/2021 11:46 AM EDT Surgical Critical Care Progress Note HPI: Briefly, Ms. Harmon is a 70 yo woman w. 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 ?? Operative course was notable for the uncomplicated placement of a lumbar drain, CSF drainage of 37ccduring the case (empiric), and an EBL of 100cc. ?? Ms Harmon was admitted to the ICU for the purpose of MAP management and frequent neurovascular checks Operations This Hospitalization Bilateral ultrasound guided??large bore??common femoral artery access for endograft delivery??(R 14F, L 18F) One??vessel physician modified aortic endograft repair ?? 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 24-Hour Events Lumbar drain removed yesterday. Tolerating fruits and salad. Adequate UOP, Caballero removed. WBC up to 23 from 13 and Cr 2.4 from 2.1. Physical Exam Last value Range last 24 hrs Temperature Temp: 37.3 ??C (99.1 ??F) Temp: [36.5 ??C (97.7 ??F)-37.3 ??C (99.1 ??F)] Heart Rate Heart Rate: 83 Heart Rate: [73-89] Blood Pressure BP: 160/75 BP: (155-177)/(64-78) Respiratory Rate Resp: 15 Resp: [10-23] SpO2 SpO2: 95 % SpO2: [84 %-100 %] 24-Hour Ins and Outs (I/O) 10/02 07 - 10/03 07 In: 5 [P.O.:2049; I.V.:325] Out: 2034 [Urine:2034] ?? Physical Exam General:??resting comfortably, no acute distress HEENT:??normocephalic, atraumatic CVS:??regular rate Pulm:??non-labored breathing on RA Abd:??soft, non tender, mildly distended and tympanitic Ext:??warm and well perfused. Bilateral groin access sites c/d/i without hematoma or strike-through. Neuro: no focal deficits. 2/2 sensation and 5/5 strength in BUE and BLE. Vascular:??Palpable femoral, DP and PT pulses bilaterally ?? Labs: CMP Recent Labs 10/03/21 0905 10/03/21 0115 10/02/21 0030 10/01/21 0939 10/01/21 0730 NA 128* 130* 136 -- 137 K Not Perf 4.0 4.0 -- 3.6 CL 92* 92* 102 -- 101 BUN 33* 31* 34* -- 37* CREATININE 2.41* 2.37* 2.14* -- 1.99* CO2 23 25 20* -- 23 GLUCOSE 110 124 149 -- 118 ANIONGAP 13 13 14 -- 13 CALCIUM 8.4* 8.2* 8.1* -- 9.2 MAGNESIUM -- 1.23* 0.77 -- -- PHOS -- 3.6 4.1 -- -- PROT -- 6.6 -- -- -- ALBUMIN -- 3.9 -- -- -- AST -- 58* -- -- -- ALT -- 27 -- -- -- ALKPHOS -- 75 -- -- -- BILITOT -- 0.4 -- -- -- BILIDIR -- 0.1 -- -- -- ESTGFR 19* 20* 22* -- 24* LACTATEVEN 1.5 -- -- 1.2 -- CBC Recent Labs 10/03/21 0905 10/03/21 0115 10/02/21 0030 10/01/21 1720 10/01/21 1310 10/01/21 0730 WBC 24.2* 23.3* 13.2* 12.2* 10.0* 6.2 RBC 4.38 4.22 3.98* 4.42 3.91* 4.56 HGB 11.7 11.2* 10.6* 11.7 10.6* 12.0 HCT 35.3* 33.9* 31.8* 35.8 31.5* 37.2 MCV 80.6* 80.3* 79.9* 81.0* 80.6* 81.6* MCH 26.7* 26.5* 26.6* 26.5* 27.1 26.3* MCHC 33.1 33.0 33.3 32.7 33.7 32.3 MPV 11.3 10.4 10.2 10.6 10.4 10.5 Assessment/Plan: Pretty Harmon is a 70 y.o. woman with PMH of HTN, HLD, PVD, renal artery stenosis (s/p right external iliac to right renal artery bypass 2018), CKD who was admitted to the ICU following an elective TEVARwith a fenestrated SMA graft. She was admitted to the ICU for close neuro monitoring and MAP pushes. ?? Neuro: - pain control: scheduled tylenol, continue home gabapentin 300 qd, PRN dilaudid and oxycodone - lumbar drain removed - trazadone 50mg PO qhs ?? CV: - MAP goal >65 - ASA 81 mg - Continue home atorvastatin 20 qd, isosorbide 20 TID - Resume home amlodipine 5 qd, carvedilol 12.5 BID, lasix 20 BID, hydralazine 25 TID, Pulm: - IS, pulm toilet ?? FEN/GI: - Continue home cimetidine 400 BID - Bowel orders - Reg diet, HLIV - GI consult for sigmoidoscopy, concern for mucosal ischemia ?? : GAEL in setting of CKD - trend with Q12H lytes ?? Endo: - Continue home levothyroxine 50 mcg qd (patient denies taking this but is filling in surescripts) ?? ID: - Leukocytosis, concern for mucosal ischemia, plan for sigmoidoscopy ?? MSK: - Activity as tolerated ?? Heme: SQH, Daily CBC ?? PPx: - DVT: SCD's, SQH - GI: none ?? L/T/D: Patient Lines/Drains/Airways Status ?? Active Tubes/Lines/Drains ?? Name Placement date Placement time Site Days ?? Peripheral IV Line - Single Lumen 10/01/21 0735 metacarpal vein (top of hand), right 20 gauge 10/01/21 0735 -- less than 1 ?? Peripheral IV Line - Single Lumen 10/01/21 0943 dorsal arch vein (top of hand), left 18 gauge 10/01/21 0943 -- less than 1 ?? Drain/Device Site -- -- -- -- ?? Urethral Catheter 10/01/21 0900 latex;silicone coated 14 5 10 10/01/21 0900 -- less than 1 ?? Arterial Line 10/01/21 0943 radial artery, right 20 gauge 10/01/21 0943 -- less than 1 ? Disp: admit to ICU, Critical Care Red 1 ?? IS PATIENT CRITICALLY ILL ? * Is there a high potential of sudden, clinically significant, or life threatening deterioration? No * Is there a need for direct personal assessment and management to treat/prevent multiple vital organ failure/deterioration? No Bairon Swanson MD 10/03/2021 Fili Woodward MD - 10/03/2021 6:47 AM EDT Vascular Surgery Progress Note Patient Name: Pretty Harmon Patient Age: 70 y.o. Birthdate: 1950 Admit date: 10/01/2021 Attending Physician: Greyson Silverman MD Patient ID Pretty Harmon is a 70 year old woman with a history of a right renal artery bypass with vein (Right external iliac to right renal artery bypass with reversed right greater saphenous vein) on 09/07/2018 for flash pulmonary edema and elevated Cr to baseline 1.9. She has a known abdominal aortic aneurysm thathas enlarged and is now 5.6 cm in diameter. She has been doing well since her last clinic visit. ?? Operations This Hospitalization Bilateral ultrasound guided large bore common femoral artery access for endograft delivery (R 14F, L18F) One vessel physician modified aortic endograft repair 24-Hour Events Lumbar drain removed yesterday. Tolerating fruits and salad. Adequate UOP and Caballero removed. WBC up to 23 from 13 and Cr 2.4 from 2.1. Medications: ??? amLODIPine 5 mg Oral Daily ??? carvediloL 12.5 mg Oral BID ??? furosemide 20 mg Oral BID ??? senna-docusate 2 tablet Oral BID ??? heparin (porcine) 5,000 Units Subcutaneous Q8H WILFRED ??? aspirin EC 81 mg Oral Daily ??? atorvastatin 20 mg Oral QPM ??? gabapentin 300 mg Oral Nightly ??? isosorbide dinitrate 20 mg Oral TID ??? sodium chloride 0.9 % (flush) 5 mL Intravenous BID ??? acetaminophen 1,000 mg Oral Q6H WILFRED ??? levothyroxine 50 mcg Oral QAM Vitals: T Temp: 36.7 ??C (98.1 ??F) Temp: [36.5 ??C (97.7 ??F)-37 ??C (98.6 ??F)] HR Heart Rate: 83 Heart Rate: [71-99] BP BP: 163/76 BP: (156-177)/(63-122) RR Resp: 11 Resp: [10-23] SpO2 SpO2: 96 % SpO2: [84 %-100 %] 24-Hour Ins and Outs (I/O) 10/02 07 - 10/03 0700 In: 2375 [P.O.:2049; I.V.:325] Out: 2034 [Urine:2034] Physical Exam General: resting comfortably, no acute distress HEENT: normocephalic, atraumatic CVS: regular rate Pulm: non-labored breathing on RA Abd: soft, non tender, mildly distended and tympanitic Ext: warm and well perfused. Bilateral groin access sites c/d/i without hematoma or strike-through. Neuro: no focal deficits. 2/2 sensation and 5/5 strength in BUE and BLE. Vascular: Palpable femoral, DP and PT pulses bilaterally Labs Recent Labs 10/03/21 0115 10/02/21 0030 10/01/21 1720 WBC 23.3* 13.2* 12.2* HGB 11.2* 10.6* 11.7 HCT 33.9* 31.8* 35.8 PLATELET 159 180 212 Recent Labs 10/03/21 0115 10/02/21 0030 10/01/21 0730 NA 130* 136 137 K 4.0 4.0 3.6 CL 92* 102 101 CO2 25 20* 23 BUN 31* 34* 37* CREATININE 2.37* 2.14* 1.99* GLUCOSE 124 149 118 No results for input(s): AST, ALT, ALKPHOS, BILITOT, BILIDIR in the last 168 hours. Recent Labs 10/03/21 0115 10/02/21 0030 10/01/21 0730 CALCIUM 8.2* 8.1* 9.2 PHOS 3.6 4.1 -- MAGNESIUM 1.23* 0.77 -- No results for input(s): PT, PTT, INR in the last 168 hours. Recent Labs 10/01/21 0939 PHART 7.38 [id number] 41 PO2ART 276* [id number] 23.3 Vascular Studies None pertinent Problem List Active Hospital Problems Diagnosis ??? Abdominal aortic aneurysm (AAA) without rupture Resolved Hospital Problems No resolved problems to display. Assessment & Plan Pretty Harmon is a 70 y.o. female now 2 Days Post-Op s/p PMEG with 1 vessel fenestration (SMA), currently recovering well. She has had rise in leukocytosis to 23 and Cr uptrending to 2.37 postoperatively. She is without abdominal pain this morning but is not yet passing flatus or having bowel movements. -NPO for now -consult GI for possible flexible sigmoidoscopy -goal normotension -2-view KUB -remainder of care per SICU -above plan discussed with Dr. Joseline Woodward MD Vascular Surgery Pager: [phone] 10/03/21 Crow Babb RN - 10/02/2021 9:24 PM EDT ICU team notified of BP, reports they will review home meds Karen Hawkins RD - 10/02/2021 4:58 PM EDT Nutrition Initial Note Pretty Harmon is a 70 y.o. female with a history of peripheral artery disease, nonischemic cardiomyopathy, hypertension, hyperlipidemia, and prior tobacco use now status tissue modified TEVAR for a supraceliac AAA Reason for intervention: Malnutrition evaluation Nutrition Recommendations: Patient with prior medical history of malnutrition in 2019. Upon physical exam, chart review and interview today, it seems this problem has resolved, although she doesn't have a robust appetite at baseline and generally only eats 1-2 meals daily. Encourage po intake, assist with ordering and meal set up while in the ICU from nursing appreciated. Monitor weight. Resolved malnutrition from problem list. Active Orders Diet Regular diet Frequency: Effective Now Number of Occurrences: Until Specified Lab Results Component Value Date NA 136 10/02/2021 K 4.0 10/02/2021 CL 102 10/02/2021 CO2 20 (L) 10/02/2021 BUN 34 (H) 10/02/2021 CREATININE 2.14 (H) 10/02/2021 ESTGFR 22 (L) 10/02/2021 MAGNESIUM 0.77 10/02/2021 CALCIUM 8.1 (L) 10/02/2021 PHOS 4.1 10/02/2021 25OHVITD 46 02/19/2021 No results found for: POCGLU Skin Status: Shift Pressure Injury Prevention Occiput: No Injury Thoracic Spine: No Injury Sacral: No Injury Ischial - left: No Injury Ischial - right: No Injury Heel - left: No Injury Heel - right: No Injury Elbow - left: No Injury Elbow - right: No Injury Device Sites: O2 sat monitor, A line sites - tubing, A line Board, SCD's/venodynes, IV sites, caballero,ECG Leads, BP Cuff, other (see comments) (LD) Other Sites: ID Band Relevant medications: noted 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 as calculated from the following: Height as of this encounter: 152.4 cm (5'). Weight as of this encounter: 45.9 kg (101 lb 3.2 oz). Blair Body Weight: 45.5 kg Usual Body Weight: see below Wt Readings from Last 10 Encounters: 10/01/21 45.9 kg (101 lb 3.2 oz) 08/01/21 46.3 kg (102 lb 1.2 oz) 07/02/21 45.2 kg (99 lb 9.6 oz) 06/25/21 47.6 kg (105 lb) 06/04/21 45.4 kg (100 lb) 05/02/21 45.4 kg (100 lb) 02/19/21 46.5 kg (102 lb 8 oz) 06/27/20 42.8 kg (94 lb 6.4 oz) 05/14/20 40.5 kg (89 lb 4.8 oz) 04/24/20 42.6 kg (94 lb) Patient Vitals for the past 168 hrs: Weight 10/01/21 0710 45.9 kg (101 lb 3.2 oz) Assessment: Estimated needs: Calories: 1150 (25 kcal/kg) Protein: 55 grams (1.2 g/kg) Nutrition Focused Physical Exam (NFPE): Performed on 10/02 by ESC. Subcutaneous fat loss at Orbital region: None present Upper arm region (triceps/biceps): None present Thoracic and lumbar region (ribs, lower back and maxillary line): None present Lean muscle loss to Dexter region (temporalis muscle): None present Clavicle bone region (pectoralis major): Mild Dorsal hand (interosseous muscle): None present Shoulder (deltoid): Mild Scapular bone region (latissimus dorsi, trapezius muscles): Not assessed Thigh region (quadriceps muscle): None present Posterior calf region (gastrocnemius muscle): None present Fluid accumulation: Not assessed Nutrition intake and intake history/Interview: Patient normally eats 1-2 meals daily, never breakfast. Eats a full dinner, sometimes a s/w for lunch. Overall doing well, and notes that she had a bad year in 2019. Encouraged her to start eating lunch regularly and hydrate well. Protein-calorie Malnutrition: Not identified ([place], JPEN J Parenteral Enteral Nutr. 2011;36(3): 273-83) Nutrition to continue to follow up while inpatient Thank you, KAREN HAWKINS RD Pager #:[phone] Greyson Chase APRN - 10/02/2021 1:04 PM EDT ICU Transfer Note DOA: 10/01/2021 Diet: Regular diet Code: Attempt Cardiopulmonary Resuscitation - Inpatient Room: IC06/IC06-A ID: Pretty Harmon is a 70 y.o. female with PMH of HTN, HLD, PVD, renal artery stenosis (s/p right external iliac to right renal artery bypass 2018), CKD who presents today for elective TEVAR with a fenestrated SMA graft. 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 A lumbar drain was placed and the patient tolerated the procedure well. right renal artery bypass with vein (Right external iliac to right renal artery bypass with reversed right greater saphenous vein) on 09/07/2018 for flash pulmonary edema and elevated Cr to baseline 1.9. She has a known abdominal aortic aneurysm that has enlarged and is now 5.6 cm in diameter. She hasbeen doing well since her last clinic visit. Blood loss was minimal and the patient made 200 ml of urine during the case. The are being transferred to the ICU for close neuro monitoring and MAP push. Operative Procedures: 10/01/2021 Procedure(s): @EVG REPAIR VISCERAL & INFRARENAL ABDML AORTA,FENESTRATED,ONE ARTERY,INC. S&I (WRVU 77.3) 24hr events: 10/02: Regular diet, MAP >65, restart home carvedilol and lasix, bowel meds, d/c LR, d/c apoorva, d/cfoley, d/c lumbar drain ON: Maintaining MAP goals w/o pressors. Slight inc Cr to 2.1 (1.9), adequate UOP 10/01: bolus 500 LR for small junaid requirement and hemoconcentration Plan: Neuro: - pain control: scheduled tylenol, continue home gabapentin 300 qd, PRN dilaudid and oxycodone - lumbar drain clamped, q1 neuro checks -Continue home trazadone 50 qhs CV: - SBP <200, MAP goal > 65, titrate phenylephrine to meet goal -ASA 81 mg -Continue home atorvastatin 20 qd, isosorbide 20 TID, carvedilol 12.5 BID, lasix 20 BID - hold home amlodipine 5 qd, hydralazine 25 TID Pulm: - IS, pulm toilet FEN/GI: Continue home cimetidine 400 BID Bowel orders Reg diet : HIRAL Endo: -Continue home levothyroxine 50 mcg qd (patient denies taking this but is filling in surescripts) ID: - HIRAL MSK: flat bedrest x 4 hrs then able to sit up Heme: SQH, CBC at 1700 PPx: - DVT: SCD's, SQH - GI: none Greyson Chase APRN 10/02/2021 Fili Woodward MD - 10/02/2021 5:48 AM EDT Vascular Surgery Progress Note Patient Name: Pretty Harmon Patient Age: 70 y.o. Birthdate: 1950 Admit date: 10/01/2021 Attending Physician: Greyson Silverman MD Patient ID Pretty Harmon is a 70 year old woman with a history of a right renal artery bypass with vein (Right external iliac to right renal artery bypass with reversed right greater saphenous vein) on 09/07/2018 for flash pulmonary edema and elevated Cr to baseline 1.9. She has a known abdominal aortic aneurysm thathas enlarged and is now 5.6 cm in diameter. She has been doing well since her last clinic visit. ?? Operations This Hospitalization Bilateral ultrasound guided large bore common femoral artery access for endograft delivery (R 14F, L18F) One vessel physician modified aortic endograft repair 24-Hour Events Lumbar drain clamped overnight. Off phenylephrine at 1800 with 500 cc bolus x1. Remains neuro intact. Medications: ??? aspirin EC 81 mg Oral Daily ??? atorvastatin 20 mg Oral QPM ??? gabapentin 300 mg Oral Nightly ??? isosorbide dinitrate 20 mg Oral TID ??? sodium chloride 0.9 % (flush) 5 mL Intravenous BID ??? heparin (porcine) 5,000 Units Subcutaneous Q8H WILFRED ??? acetaminophen 1,000 mg Oral Q6H WILFRED ??? levothyroxine 50 mcg Oral QAM Vitals: T Temp: 36.9 ??C (98.4 ??F) Temp: [35.5 ??C (95.9 ??F)-36.9 ??C (98.4 ??F)] HR Heart Rate: 66 Heart Rate: [66-85] BP BP: 155/72 BP: (145-155)/(65-72) RR Resp: 16 Resp: [10-23] SpO2 SpO2: 99 % SpO2: [85 %-100 %] 24-Hour Ins and Outs (I/O) 10/01 700 - 10/02 07 In: 2716 [P.O.:160; I.V.:2556] Out: 1798 [Urine:1665] Physical Exam General: resting comfortably, no acute distress HEENT: normocephalic, atraumatic CVS: regular rate Pulm: non-labored breathing on RA Abd: soft, non tender, non distended Ext: warm and well perfused. Bilateral groin access sites c/d/i without hematoma or strike-through. Neuro: no focal deficits. 2/2 sensation and 5/5 strength in BUE and BLE. Vascular: Palpable femoral, DP and PT pulses bilaterally Labs Recent Labs 10/02/21 0030 10/01/21 1720 10/01/21 1310 WBC 13.2* 12.2* 10.0* HGB 10.6* 11.7 10.6* HCT 31.8* 35.8 31.5* PLATELET 180 212 179 Recent Labs 10/02/21 0030 10/01/21 0730 NA 136 137 K 4.0 3.6 CL 102 101 CO2 20* 23 BUN 34* 37* CREATININE 2.14* 1.99* GLUCOSE 149 118 No results for input(s): AST, ALT, ALKPHOS, BILITOT, BILIDIR in the last 168 hours. Recent Labs 10/02/21 0030 10/01/21 0730 CALCIUM 8.1* 9.2 PHOS 4.1 -- MAGNESIUM 0.77 -- No results for input(s): PT, PTT, INR in the last 168 hours. Recent Labs 10/01/21 0939 PHART 7.38 [id number] 41 PO2ART 276* [id number] 23.3 Vascular Studies None pertinent Problem List Active Hospital Problems Diagnosis ??? Abdominal aortic aneurysm (AAA) without rupture Resolved Hospital Problems No resolved problems to display. Assessment & Plan Pretty Harmon is a 70 y.o. female now 1 Day Post-Op s/p PMEG with 1 vessel fenestration (SMA), currently recovering well. -lumbar drain may be removed this PM if neuro intact -hold noon dose of SQH in anticipation of drain removal -advance diet as tolerated -MAP goal >65, otherwise goal normotension -remainder of care per SICU Fili Woodward MD Vascular Surgery Pager: [phone] 10/02/21 Candida Epps RN - 10/02/2021 3:00 AM EDT OUTCOME EVALUATION NOTE: OUTCOME SUMMARY: Neuro status stable, denies numbness/tingling, strong pulses throughout. B/L fem sites clean, dry and intact. Adequate output via caballero. LD remains in place and clamped. Dressing dry and intact. BP within goal without pressors. Pt appeared to sleep soundly between assessments/care. Safety maintained. PLAN MOVING FORWARD: q1h neuro checks MAP > 100 INDIVIDUALIZED FALL PREVENTION INTERVENTIONS: Patient-specific fall risk factors per assessment: [current deficits]: Lines/drain, fatigue Assistance [level of assistance required for transfers and ambulation]: 1 assist Supervision [direct monitoring required during toileting and ADLs]: SBA, hands on Surveillance [continuous indirect monitoring]: ICU monitoring, close observation, safety rounding Patient-specific fall prevention interventions for sensory deficits provided, if applicable: [X] Yes CARE PLAN GOAL OUTCOME EVALUATION: Continue care plan as documented Yuki Fam RN - 10/01/2021 6:46 PM EDT OUTCOME EVALUATION NOTE: OUTCOME SUMMARY: Pt aaox4, moving everything with equal strength. 2+ palpable DP/PT pulses, no sensation changes. B/Lfem site dressing CDI, no evidence of hematoma. Low dose phenylephrine for MAP >100, off now w/ 500cc bolus. LD in place. Family at bedside and attentive to patient. PLAN MOVING FORWARD: Q1 Neuro, ISP via LD Q1 NV, pulse, fem site checks MAP>100, SBP <200 INDIVIDUALIZED FALL PREVENTION INTERVENTIONS: Patient-specific fall risk factors per assessment: [current deficits]: Bedrest, lines, drains, hospital setting Assistance [level of assistance required for transfers and ambulation]: x2 Supervision [direct monitoring required during toileting and ADLs]: Complete care Surveillance [continuous indirect monitoring]: ICU monitoring Yuki Fam RN - 10/01/2021 4:43 PM EDT Peripheral Vasopressor Note Single, Standard Concentration Med infusing: Phenylepherine Time Started: 1615 Provider notified at 12 hours: N/a Interim plan: Continue in continue to infuse in PIV #18 located above the flexion point of the L wrist Provider notified at 20 hours: n/a Plan: n/a Fili Woodward MD - 10/01/2021 2:40 PM EDT Surgery Post Op Check Pretty Harmon is a 70 y.o. female status post PMEG with 1 vessel fenestration (SMA) Subjective: No nausea/vomiting, chest pain, SOB, pain well controlled, offers no complaints Objective: Temp: [35.5 ??C (95.9 ??F)-36 ??C (96.8 ??F)] Heart Rate: [66-70] Resp: [15-19] BP: (145-155)/(65-72) SpO2: [95 %-100 %] Heart Rate from SpO2: [66 bpm-73 bpm] No intake/output data recorded. I/O this shift: In: 1402 [I.V.:1402] Out: 708 [Urine:575; Other:33; Blood:100] UOP since OR: 375 cc Physical Exam General: resting comfortably, no acute distress HEENT: normocephalic, atraumatic CVS: regular rate Pulm: non-labored breathing on RA Abd: soft, non tender, non distended Ext: warm and well perfused. Bilateral groin access sites c/d/i without hematoma or strike-through. Neuro: no focal deficits. 2/2 sensation and 5/5 strength in BUE and BLE. Vascular: Palpable femoral, DP and PT pulses bilaterally Assessment/Plan: Pretty Harmon is a 70 y.o. female status post PMEG with 1 vessel fenestration (SMA), currently in stable condition and recovering well. -maintain lumbar drain clamped -q1 hour neuro checks -MAP goal >100, systolic <200 -may sit up 4 hours postoperatively Fili Woodward MD Vascular Surgery Pager: [phone] 10/01/21 documented in this encounter H&P Notes Shahbaz Moses MD - 10/03/2021 2:33 PM EDT Gastroenterology and Hepatology Pre-Procedure History and Physical Exam Procedure: flex sig Indication: abdo distension, leukocytosis, c/f ischemic colitis Patient Active Problem List Diagnosis Code ??? Viral hepatitis B acute B16.9 ??? Abdominal aortic aneurysm (AAA) without rupture I71.4 ??? Renal artery stenosis I70.1 ??? Hypertensive urgency I16.0 ??? CKD (chronic kidney disease) stage 5, GFR less than 15 ml/min N18.5 ??? Chest pain R07.9 ??? Hypertensive urgency I16.0 ??? Systolic HF (heart failure) I50.20 ??? Uncontrolled hypertension I10 ??? Anemia of chronic renal failure, stage 4 (severe) N18.4, D63.1 ??? Pre-transplant evaluation for CKD (chronic kidney disease) Z01.818 ??? Pulmonary hypertension I27.20 ??? SBO (small bowel obstruction) K56.609 EXAM: HEENT: Airway examined, oropharynx clear Mallampati Score: II (soft palate, uvula, fauces visible) LUNGS: Clear to auscultation HEART: Regular rate and rhythm, normal S1, S2 ABDOMEN: Normal bowel sounds, soft, non tender, non distended A/P: Proceed with the planned endoscopic procedure. ASA 3 - Patient with moderate systemic disease with functional limitations Sedation Plan: anesthesia Risks and benefits of the procedure explained to the patient. Consent form signed and included in the patient's chart. Shahbaz Moses MD PGY-5, Gastroenterology Greyson Chase, KYRA - 10/01/2021 12:51 PM EDT Critical Care - Admission Note History of Present Illness: Pretty Harmon is a 70 y.o. female with PMH of HTN, HLD, PVD, renal artery stenosis (s/p right externaliliac to right renal artery bypass 2018), CKD who presents today for elective TEVAR with a fenestrated SMA graft. 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 A lumbar drain was placed and the patient tolerated the procedure well. right renal artery bypass with vein (Right external iliac to right renal artery bypass with reversed right greater saphenous vein) on 09/07/2018 for flash pulmonary edema and elevated Cr to baseline 1.9. She has a known abdominal aortic aneurysm that has enlarged and is now 5.6 cm in diameter. She hasbeen doing well since her last clinic visit. Blood loss was minimal and the patient made 200 ml of urine during the case. The are being transferred to the ICU for close neuro monitoring and MAP push. Review of Systems: Patient complaining of left sided back pain, denies further complaints Past Medical Surgery: Past Medical History: Diagnosis Date ??? AAA (abdominal aortic aneurysm) [id number] angiogram; 3.2 cm infrarenal ??? Constipation ??? Dyslipidemia ??? Hypertension ??? Insomnia ??? Peripheral vascular disease ??? Renal artery stenosis R; per 2009 angiogram ??? SBO (small bowel obstruction) Past Surgical History: Past Surgical History: Procedure Laterality Date ??? HYSTERECTOMY ? ? PRO CATHETER 1ST ORDER W/WO ART PUNCT/FLUORO/S&I BILATERAL Bilateral 09/01/[address] (FIRST-ORDER), MAIN RENAL ART & ANY ACC, W/S&I; ANDREY (WRVU 6.99) performedby Greyson Chen MD at [facility] MAIN OR ??? PRO EXPLORATORY OF ABDOMEN N/A 04/26/2020 @EXPLORATORY LAPAROTOMY, WITH/WITHOUT BIOPSY(S) (WRVU 12.54) performed by Edwin Hwang MD at [facility] MAIN OR ??? PRO UPPER GI ENDOSCOPY, DIAGNOSTIC 01/20/2014 EGD, UPPER GI ENDOSCOPY performed by Corby Cano MD at [facility] ENDOSCOPY ??? PRO UPPER GI ENDOSCOPY, DIAGNOSTIC N/A 07/28/2017 EGD, UPPER GI ENDOSCOPY performed by Snow Liao MD at [facility] ENDOSCOPY ??? PRO VEIN BYPASS GRAFT, AORTOILIOFEMORAL N/A 09/07/2018 @BYPASS GRAFT, AORTOILIAC W\ VEIN CONDUIT (WRVU 41.88) performed by Isac Moody MD at [facility] MAIN OR ??? VS ARTERIOGRAM RENAL VASCULAR SURGERY 08/01/2021 VS Arteriogram Renal Vascular Surgery 08/01/[address] [facility] INTERVENTIONL RAD Prior To Admission Medications: Medications Prior to Admission Medication Sig Dispense Refill Last Dose ??? traZODone (DESYREL) 150 mg Tablet TAKE ONE TABLET BY MOUTH AT BEDTIME NEEDED FOR SLEEP 09/30/2021 at Unknown time ??? carvediloL (Coreg) 12.5 mg Tablet Take 1 tablet by mouth 2 times daily (with meals). 180 tablet 3 10/01/2021 at Unknown time ??? hydrALAZINE (Apresoline) 25 mg Tablet Take 1 tablet by mouth 3 times daily. 270 tablet 3 09/30/2021 at Unknown time ??? isosorbide dinitrate (ISORDIL) 20 mg Tablet Take 1 tablet by mouth 3 times daily. 270 tablet 3 10/01/2021 at Unknown time ??? levothyroxine (Synthroid) 75 mcg Tablet Take 1 tablet by mouth daily. 90 tablet 3 10/01/2021 at Unknown time ??? amLODIPine (Norvasc) 5 mg Tablet Take 1 tablet by mouth daily. 90 tablet 1 10/01/2021 at Unknown time ??? cimetidine (TAGAMET) 400 mg Tablet Take 400 mg by mouth 2 times daily. 10/01/2021 at Unknown time ??? furosemide (Lasix) 20 mg Tablet Take 20 mg by mouth 2 times daily. Takes at 0800 and 1600 09/30/2021 at Unknown time ??? gabapentin (NEURONTIN) 100 mg Capsule Take 300 mg by mouth nightly. 09/30/2021 at Unknown time ??? atorvastatin (LIPITOR) 20 mg Tablet Take 1 tablet by mouth every evening. 90 tablet 3 10/01/2021 at Unknown time ??? acetaminophen (TYLENOL) 500 mg Tablet Take 1 tablet by mouth every 6 hours. 30 tablet 1 Past Week at Unknown time ??? aspirin 81 mg Tablet, Delayed Release (E.C.) Take 81 mg by mouth daily. 10/01/2021 at Unknown time ??? cloNIDine (CATAPRES) 0.1 mg Tablet Take 1 tablet by mouth every 8 hours as needed (Please take 1tablet, if systolic blood pressure is >200). 30 tablet 3 More than a month at Unknown time Current Medications: ??? sodium chloride 0.9 % (flush) (BD PosiFlush Normal Saline 0.9) flush 5-20 mL ??? lidocaine (Xylocaine) 1% (10 mg/mL) injection 3 mg ??? lactated ringers infusion ??? ceFAZolin (Ancef) 2 g vial attach to sodium chloride 0.9% 100 mL Mini-Bag Plus ??? ceFAZolin (Ancef) 2 g vial attach to sodium chloride 0.9% 100 mL Mini-Bag Plus ??? labetaloL 5 mg/mL injection ??? dexAMETHasone (Decadron) injection ??? rocuronium (Zemuron) (10 mg/mL) multi-dose injection ??? heparin (porcine) (1,000 units/mL) injection ??? PHENYLephrine (Junaid-Synephrine) (80 mcg/mL) in sodium chloride 0.9% 250 mL infusion ??? propofoL (Diprivan) 10 mg/mL bolus injection (Anesthesia) ??? lidocaine (pf) (Xylocaine) (20 mg/mL) 2% injection syringe ??? ceFAZolin (Ancef) 1 g in dextrose 5% 50 mL infusion ??? esmoloL (Brevibloc) (10 mg/mL) injection ??? PHENYLephrine in NS (PF) (JUNIAD-SYNEPHRINE) 0.8 mg/10 mL (80 mcg/mL) multi- dose injection Syrg ??? ePHEDrine sulfate (5 mg/mL) multi-dose injection ??? fentaNYL (pf) (50 mcg/mL) multi-dose injection ??? ondansetron (pf) (Zofran) (2 mg/mL) injection ??? protamine (10 mg/mL) injection Allergies: No Known Allergies Family History: Family History Problem Relation Age of Onset ??? Hypertension Mother ??? Cervical Cancer Mother ??? Chronic Obstructive Pulmonary Disease Father ??? Hypertension Sister Social History and Habits: Social History Socioeconomic History ??? Marital status: Spouse name: Not on file ??? Number of children: Not on file ??? Years of education: Not on file ??? Highest education level: Not on file Occupational History ??? Not on file Tobacco Use ??? Smoking status: Former Smoker Packs/day: 0.50 Years: 45.00 Pack years: 22.50 Types: Cigarettes Quit date: 2007 Years since quittin.4 ??? Smokeless tobacco: Never Used ??? Tobacco comment: smoked for ~45 years up to 1 ppd at [place], quit ~1999 Vaping Use ??? Vaping Use: Never used Substance and Sexual Activity ??? Alcohol use: Yes Comment: a few glasses of wine, rarely 4 times a year ??? Drug use: No ??? Sexual activity: Yes Partners: Male Other Topics Concern ??? Abuse or Threat: Physical, Sexual, Verbal Not Asked ??? Abuse or Threat: Help requested by patient Not Asked ??? Alcohol/Drug Concern Not Asked ??? Back Care Not Asked ??? Bike Helmet Not Asked ??? Blood Transfusions No ??? Caffeine Concern Not Asked ??? Exercise Not Asked ??? Exercise: Patient reported Not Asked ??? Hobby Hazards Not Asked ??? Service No ??? Occupational Exposure Not Asked ??? Poor oral hygiene Not Asked ??? Seat Belt Not Asked ??? Second-hand smoke exposure Not Asked ??? Self-Exams Not Asked ??? Sleep Concern Not Asked ??? Special Diet Not Asked ??? Stress Concern Not Asked ??? Violence Concern Not Asked ??? Weight Concern Not Asked ??? Do You live alone? Not Asked ??? Tobacco in Home Not Asked Social History Narrative , lives with Rodolfo of 50 years. 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 Hoping to retire 11/2018 and travel throughout [facility] and [place] with Rodolfo. No history of heavy etoh use 2 children healthy Social Determinants of Health Financial Resource Strain: Not on file Food Insecurity: Not on file Transportation Needs: Not on file Physical Activity: Not on file Housing Stability: Not on file Physical Exam: Last Set of Vitals and range of vitals over past 24 hours: Last value Range last 24 hrs Temperature Temp: 36 ??C (96.8 ??F) Temp: [36 ??C (96.8 ??F)] Heart Rate Heart Rate: 68 Heart Rate: [68] Blood Pressure BP: 145/65 BP: (145)/(65) Respiratory Rate Resp: 16 Resp: [16] SpO2 SpO2: 95 % SpO2: [95 %] Gen: Awake, calm in NAD HEENT: Sclera non-icteric, PERRL CV: RRR, no m/r/g RESP: CTAB, no wheezing ABD: Soft, normoactive bowel sounds, bilateral groin sites, with dressings C/D/I, no hematoma noted EXT: WWP, bilateral Pt/DP pulses palpable Neuro: Grossly intact 5/5 lower extremity muscle strength in all carranza Laboratory (Last 24 Hours): Recent Results (from the past 24 hour(s)) Hemogram Result Value Ref Range WBC 6.2 4.0 - 9.5 x10(3)/mcL RBC 4.56 4.00 - 5.21 x10(6)/mcL Hemoglobin 12.0 11.7 - 15.5 g/dL Hematocrit 37.2 35.7 - 45.8 % MCV 81.6 (L) 82.6 - 94.4 fL MCH 26.3 (L) 27.1 - 32.0 pg MCHC 32.3 31.7 - 35.0 g/dL Platelets 220 145 - 357 x10(3)/mcL RDWSD 50.4 (H) 37.0 - 46.0 fL RDWCV 17.2 (H) 11.5 - 14.1 % MPV 10.5 7.6 - 12.9 fL nRBC % Auto 0.0 % nRBC Abs Auto 0.000 0.000 - 0.000 x10(3)/mcL Basic Metabolic Panel (non-fasting) Result Value Ref Range Glucose Lvl 118 65 - 199 mg/dL BUN 37 (H) 8 - 18 mg/dL Creatinine 1.99 (H) 0.70 - 1.20 mg/dL Sodium 137 135 - 145 mmol/L Potassium 3.6 3.5 - 5.0 mmol/L Chloride 101 98 - 107 mmol/L CO2 23 22 - 31 mmol/L Anion Gap 13 5 - 15 mmol/L Calcium 9.2 8.5 - 10.5 mg/dL Estimated GFR 24 (L) >=60 mL/min/1.73 m?? Prealbumin Result Value Ref Range Prealbumin 23 20 - 40 mg/dL ABO/Rh Typing Result Value Ref Range ABORh Type A Pos Antibody screen Result Value Ref Range Ab Screen Interp Negative Expires at 2359 on: 10/04/2021 ABORH Recheck Status Result Value Ref Range ABORH Type Recheck Completed Type and Screen Validity Result Value Ref Range T&S only valid at [facility] [facility] BLOOD GAS 2 ARTERIAL Result Value Ref Range pH Art 7.38 7.35 - 7.45 pCO2 Art 41 35 - 45 mmHg pO2 Art 276 (H) 85 - 104 mmHg HCO3 Art 23.3 20.0 - 26.0 mmol/L BE Art -1.9 -3.0 - 3.0 mmol/L Hgb Blood Gas 10.9 (L) 11.7 - 15.5 g/dL O2HB Art 97.9 (H) 94.0 - 97.0 % COHB Art 0.4 % METHB Art 0.2 <=1.5 % Na Whole Blood 136 135 - 145 mmol/L K Whole Blood 3.7 3.5 - 5.0 mmol/L ICa Whole Blood 1.13 (L) 1.15 - 1.33 mmol/L CL Whole Blood 103 98 - 107 mmol/L Gluc Whole Bld 124 65 - 199 mg/dL Lactate WB 1.2 0.5 - 2.2 mmol/L POCT Glucose Result Value Ref Range POC Glucose 172 65 - 199 mg/dL Microbiology: Covid pending Radiology: CT abd/pelvis 06/04: Enlarging fusiform abdominal aortic aneurysm. Maximum caliber 5.6 cm. No periaortic nor retroperitoneal hematoma. Assessment/Plan: Pretty Harmon is a 70 y.o. female with PMH of HTN, HLD, PVD, renal artery stenosis (s/p right externaliliac to right renal artery bypass 2018), CKD who presents today for elective TEVAR with a fenestrated SMA graft. The are being transferred to the ICU for close neuro monitoring and MAP push. Neuro: - pain control: scheduled tylenol, continue home gabapentin 300 qd, PRN dilaudid and oxycodone - lumbar drain clamped, q1 neuro checks -Continue home trazadone 50 qhs CV: - SBP <200, MAP goal > 100, titrate phenylephrine to meet goal -ASA 81 mg -Continue home atorvastatin 20 qd, isosorbide 20 TID - hold home amlodipine 5 qd, carvedilol 12.5 BID, lasix 20 BID, hydralazine 25 TID, Pulm: - IS, pulm toilet FEN/GI: Continue home cimetidine 400 BID Bowel orders NPO give meds LR @ 100 ml/hr : caballero, monitor UOP Endo: -Continue home levothyroxine 50 mcg qd (patient denies taking this but is filling in surescripts) ID: - HIRAL MSK: flat bedrest x 4 hrs then able to sit up Heme: SQH, CBC at 1700 PPx: - DVT: SCD's, SQH - GI: none L/T/D: Patient Lines/Drains/Airways Status Active Tubes/Lines/Drains Name Placement date Placement time Site Days Peripheral IV Line - Single Lumen 10/01/21 0735 metacarpal vein (top of hand), right 20 gauge 10/01/21 0735 -- less than 1 Peripheral IV Line - Single Lumen 10/01/21 0943 dorsal arch vein (top of hand), left 18 gauge 10/01/21 0943 -- less than 1 Drain/Device Site -- -- -- -- Urethral Catheter 10/01/21 0900 latex;silicone coated 14 5 10 10/01/21 0900 -- less than 1 Arterial Line 10/01/21 0943 radial artery, right 20 gauge 10/01/21 0943 -- less than 1 Disp: admit to ICU, Critical Care Red 1 Greyson Chase, KYRA 10/01/2021 Associated attestation - Ilana Atwood MD - 10/01/2021 5:10 PM EDT Critical Care Attending Addendum: I have personally seen and examined Ms. Harmon. Briefly, Ms. Harmon is a 70 yo woman w. 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 Operative course was notable for the uncomplicated placement of a lumbar drain, CSF drainage of 37ccduring the case (empiric), and an EBL of 100cc. Ms Harmon is being admitted to the ICU for the purpose of MAP management and frequent neurovascular checks Upon arrival, Ms Harmon is hemodynamically stable and in mild discomfort without any respiratory compromise. She is awake, alert, and oriented x3 though there is some latency of response. Pupils are equally round and reactive to light and accommodation bilaterally anicteric sclera face is symmetric, speech fluent, comprehension intact, able to follow multistep commands. Strength is intact in the lower extremities when gastrocs and anterior tibial muscles are tested as well as intrinsic muscles of the feet. Hamstrings and hip flexors were not tested given recent groin punctures and the need to lay flat for 4 hours postoperatively. Heart exam reveals regular rate and rhythm, no murmurs rubs or gallopsappreciated. Lungs are clear to auscultation bilaterally abdomen soft, nontender, nondistended, positive bowel sounds. Palpable pulses bilateral DPs, though right greater than left. Equal and satisfactory perfusion to bilateral lower and upper extremities. Right arterial A-line, PIV x2. Labs are notable for an H/H of 10/31.5 and a Cre of 1.99. Lactate 1.2 Echo from 2001 reveals an LVEF of 59% with normal wall motion abnormalities and normal RV function. A/p: 70-year-old woman with a history of peripheral artery disease, nonischemic cardiomyopathy, hypertension, hyperlipidemia, and prior tobacco use now status tissue modified TEVAR for a supraceliac AAA who is overall stable and is admitted to the ICU given the potential need to augment blood pressures with a MAP goal of greater than 100 along with every hour neurochecks. From a neurologic standpoint, we will ensure that Ms. Harmon's pain is adequately treated. She is on aseemingly hefty dose of 300 mg of trazodone nightly, though it is unclear whether this is her correct dosing. We will plan to start Tylenol, 50 mg of trazodone nightly, hoem gabapentin, and narcotic asneeded. We will obtain medical history from to check this dosing. She will need every hour neurochecks to ensure there is no ischemia to the spinal cord. Lumbar drain is to remain clamped. It is only to be opened per direct instruction from the vascular team should map augmentation not restoreneurologic function in the event of a neurologic issue. From a cardiovascular standpoint, Ms. Harmon is hemodynamically stable. No acute issues. Hold on a HTNmeds while actively observing for neurologic function. MAP goal > 100. ASA per primary. Cont statin. Pulm: Stable on 2 L nasal cannula, encourage incentive spirometry. Would not feed until upright. MAP GI: Does not meet criteria for H2 B or PPI prophylaxis. Advance diet per primary. Renal: CKD. Strict Is/Os. D/c caballero. Heme: No AC while lumbar drain in place. Positioning - To remain supine x 4 hours. Remainder of plan as below. Ilana Atowod MD This note was partially written using voice recognition software. //////////////////////////////////////////////////////////////////////////////// //// Attestation: IS PATIENT CRITICALLY ILL ? Is there a high potential of sudden, clinically significant, or life threatening deterioration? YES Is there a need for direct personal assessment and management to treat/prevent multiple vital organ failure/deterioration? YES If this patient is not critically ill, the reason for continued hospitalization is n/a. PATIENT IS CRITICALLY ILL WITH THESE DIAGNOSES BEING MANAGED BY [facility] TEAM: AAA I personally performed 31 min of aggregate critical care time exclusive of procedures and teaching. This includes time spent during direct patient evaluation and reassessment, interpreting diagnostic tests, directing life and/or organ supporting interventions and documentation on the unit. Stephanie Cevallos MD - 09/25/2021 3:15 PM EDT Vascular Surgery History and Physical HPI: Pretty Harmon is a 70 year odl woman with a history of a right renal artery bypass with vein (Rightexternal iliac to right renal artery bypass with reversed right greater saphenous vein) on 09/07/2018for flash pulmonary edema and elevated Cr to baseline 1.9. She has a known abdominal aortic aneurysmthat has enlarged and is now 5.6 cm in diameter. She has been doing well since her last clinic visit. Review of Systems: A full review encompassing at least 10 organ systems including general, neuro, pulm, cardiac, GI, , MSK, Endo, and psych was negative other than that listed in the HPI. Past Medical History: Past Medical History: Diagnosis Date ??? AAA (abdominal aortic aneurysm) [id number] angiogram; 3.2 cm infrarenal ??? Constipation ??? Dyslipidemia ??? Hypertension ??? Insomnia ??? Peripheral vascular disease ??? Renal artery stenosis R; per 2009 angiogram ??? SBO (small bowel obstruction) Past Surgical History: Past Surgical History: Procedure Laterality Date ??? HYSTERECTOMY ? ? PRO CATHETER 1ST ORDER W/WO ART PUNCT/FLUORO/S&I BILATERAL Bilateral 09/01/[address] (FIRST-ORDER), MAIN RENAL ART & ANY ACC, W/S&I; ANDREY (WRVU 6.99) performedby Greyson Chen MD at [facility] MAIN OR ??? PRO EXPLORATORY OF ABDOMEN N/A 04/26/2020 @EXPLORATORY LAPAROTOMY, WITH/WITHOUT BIOPSY(S) (WRVU 12.54) performed by Edwin Hwang MD at [facility] MAIN OR ??? PRO UPPER GI ENDOSCOPY, DIAGNOSTIC 01/20/2014 EGD, UPPER GI ENDOSCOPY performed by Corby Cano MD at [facility] ENDOSCOPY ??? PRO UPPER GI ENDOSCOPY, DIAGNOSTIC N/A 07/28/2017 EGD, UPPER GI ENDOSCOPY performed by Snow Liao MD at [facility] ENDOSCOPY ??? PRO VEIN BYPASS GRAFT, AORTOILIOFEMORAL N/A 09/07/2018 @BYPASS GRAFT, AORTOILIAC W\ VEIN CONDUIT (WRVU 41.88) performed by Isac Moody MD at [facility] MAIN OR ??? VS ARTERIOGRAM RENAL VASCULAR SURGERY 08/01/2021 VS Arteriogram Renal Vascular Surgery 08/01/[address] [facility] INTERVENTIONL RAD Functional Status/Social Hx: Lives at home Family Hx: Negative for Thrombosis, Bleeding Disorders Medications: No current facility-administered medications on file prior to encounter. Current Outpatient Medications on File Prior to Encounter Medication Sig Dispense Refill ??? traZODone (DESYREL) [...] (E.C.) Take 81 mg by mouth daily. Allergies: Patient has no known allergies. Physical Exam: Temp: -- Heart Rate: -- Resp: -- BP: ()/() SpO2: -- Heart Rate from SpO2: -- General: NAD, resting comfortably CVS: Regular rate Pulm: Equal chest rise bilaterally Abd: Soft, non tender Ext: RLE: warm, well perfused LLE: warm, well perfused Neuro: Grossly nonfocal, moving all extremities. Labs: Creatinine 1.9 CO2 angiogram: - Celiac and inferior mesenteric arteries are not observed, presumed occluded. -Patent SMA artery with collateral flow to the splenic and hepatic artery. -Question of moderate to severe stenosis of the proximal left common iliac artery, difficult to visualize due to overlying bowl gas. -Right renal artery bypass from right external iliac artery to right kidney is patent. Assessment and Plan: rPetty Harmon is a 70 year old woman with a TAAA that meets size threshold for repair. Plan for PMEG with 1 vessel fenestration (SMA). documented in this encounter Miscellaneous Notes Care Management Discharge - Valeria Guerra RN - 10/07/2021 12:07 PM EDT CARE MANAGEMENT FINAL DISCHARGE NOTE Chart reviewed, care reviewed with primary team and at interdisciplinary rounds. Patient is medically ready for discharge to home. Needs for Transition of Care: Plan for discharge is: Home w/o Services Outpatient Agency/Support Group Needs: None Agency Referrals & Follow-up Care: Transportation: family or friend will provide Functional status prior to admission: Independent Home Environment: Others in the home: spouse. Current Living Arrangements: home/apartment/condo. Accessibility Concerns:2 story house with 2 steps to enter. Pt can live on first floor if needed. Current Functional Ability: Independent DME used at home: none DME Needed at Discharge: Patient is insured through: Primary Insurance: MEDICARE Payor: MEDICARE / Plan: MEDICARE PART A & B / Product Type: *No Product type* / Secondary Insurance: [employer] [facility] [place] Prescription Coverage: Yes This plan was formulated with input from patient and team. All are in agreement with plan. Valeria HARMAN RN Phone: [phone] Pager: [phone] Plan of Care - Eliza Casey RN - 10/05/2021 6:02 PM EDT OUTCOME EVALUATION NOTE: OUTCOME SUMMARY: Pt remains ALOx4. No complaints of pain/discomfort. Ambulated around unit. Continues to require 0.5LNC. PLAN MOVING FORWARD: Transfer to lower level of care INDIVIDUALIZED FALL PREVENTION INTERVENTIONS: Patient-specific fall risk factors per assessment: [current deficits]: Independent Assistance [level of assistance required for transfers and ambulation]: independent Supervision [direct monitoring required during toileting and ADLs]: independent Surveillance [continuous indirect monitoring]: Masimo, purposeful rounding Patient-specific fall prevention interventions for sensory deficits provided, if applicable: [X] Yes CARE PLAN GOAL OUTCOME EVALUATION: Plan of Care - Eliza Casey RN - 10/04/2021 6:23 PM EDT OUTCOME EVALUATION NOTE: OUTCOME SUMMARY: Pt remains ALOx4. Denies pain this shift. Ambulated around unit with SBA. Continues to require 0.5 LNC. Urine sample sent to lab PLAN MOVING FORWARD: Transfer to lower level of care INDIVIDUALIZED FALL PREVENTION INTERVENTIONS: Patient-specific fall risk factors per assessment: [current deficits]: Generalized weakness Assistance [level of assistance required for transfers and ambulation]: SBA Supervision [direct monitoring required during toileting and ADLs]: Eyes on Surveillance [continuous indirect monitoring]: masimo, purposeful rounding Patient-specific fall prevention interventions for sensory deficits provided, if applicable: CARE PLAN GOAL OUTCOME EVALUATION: Care Management - Valeria Guerra RN - 10/04/2021 4:07 PM EDT OFFICE OF CARE MANAGEMENT PROGRESS NOTE LOS: Hospital Day 3 days Chart reviewed, care reviewed with primary team and at interdisciplinary rounds. Patient continues to meet inpatient level of care related to: Patient was noted with an elevated white count this morning and is staying for further workup Functional status prior to admission: Independent Home Environment: Others in the home: spouse. Current Living Arrangements: home/apartment/condo. Accessibility Concerns: 2 story house with 2 steps to enter. Pt can live on first floor if needed. Current Functional Ability: Independent DME used at home: none DME Needed at Discharge: Patient is insured through: Primary Insurance: MEDICARE Payor: MEDICARE / Plan: MEDICARE PART A & B / Product Type: *No Product type* / Secondary Insurance: [facility] [place] Last Physical Therapy Recommendation: with Last Occupational Therapy Recommendation: with Plan for discharge is: Home w/o Services Outpatient Agency/Support Group Needs: None Agency Referrals: Not Applicable Transportation: family or friend will provide Barriers to discharge: Discharge planning Plan going forward: Patient will go home with no services when medically ready for discharge. Care Management will continue to follow and assist with discharge planning and coordination of care as indicated. Anticipated Date of Discharge: Valeria HARMAN RN Phone: [phone] Pager: [phone] Plan of Care - Eliza Casey RN - 10/03/2021 4:29 PM EDT OUTCOME EVALUATION NOTE: OUTCOME SUMMARY: Pt remains ALOx4. Denies pain/discomfort this shift. Made NPO in the AM d/t rising creatinine. abd xray performed, pt received x2 enema in prep for Flex Sigmoidoscopy, tolerated well. PLAN MOVING FORWARD: Transfer to lower level of care INDIVIDUALIZED FALL PREVENTION INTERVENTIONS: Patient-specific fall risk factors per assessment: [current deficits]: Lines and drains Assistance [level of assistance required for transfers and ambulation]: SBA Supervision [direct monitoring required during toileting and ADLs]: Eyes on Surveillance [continuous indirect monitoring]: ICU monitoring, purposeful rounding Patient-specific fall prevention interventions for sensory deficits provided, if applicable: [X] Yes CARE PLAN GOAL OUTCOME EVALUATION: Op Note - Silver Rossi MD - 10/03/2021 2:55 PM EDT DH Operative Note Patient Name: Pretty Harmon : [id number] MR#: [id number] Case Date: 10/03/2021 Surgeon: Surgeon(s) and Role: * Silver Rossi MD - Primary * Shahbaz Moses MD - Fellow Procedure(s): FLEXIBLE SIGMOIDOSCOPY Please see Provation report for details. Consult Note - Silver Rossi MD - 10/03/2021 9:50 AM EDT Images from the original note were not included. DIVISION OF GASTROENTEROLOGY & HEPATOLOGY INITIAL CONSULT REQUESTING PROVIDER: Greyson Silverman MD NAME: Pretty Harmon : 1950 HPI: Ms. Harmno is a 70-year-old woman with a thoracoabdominal aortic aneurysm s/p endovascular repair on 10/01 including fenestration of SMA. She was noted to have abdominal distension overnight. She denies any abodminal discomfort. She has not had a BM since surgery, but this is not unusual for her. She routinely goes up to 5 days at home between BMs. She was noted to have leukocytosis this AM (WBC 23). GI consulted for flex sig for assessment of potential ischemic colitis. ROS: 10-system ROS negative other than that noted above PAST MEDICAL & SURGICAL HX: Past Medical History: Diagnosis Date ??? AAA (abdominal aortic aneurysm) [id number] angiogram; 3.2 cm infrarenal ??? Constipation ??? Dyslipidemia ??? Hypertension ??? Insomnia ??? Peripheral vascular disease ??? Renal artery stenosis R; per 2009 angiogram ??? SBO (small bowel obstruction) Past Surgical History: Procedure Laterality Date ??? HYSTERECTOMY ? ? PRO CATHETER 1ST ORDER W/WO ART PUNCT/FLUORO/S&I BILATERAL Bilateral 09/01/[address] (FIRST-ORDER), MAIN RENAL ART & ANY ACC, W/S&I; ANDREY (WRVU 6.99) performedby Greyson Chen MD at [facility] MAIN OR ??? PRO EXPLORATION OF ABDOMEN N/A 04/26/2020 @EXPLORATORY LAPAROTOMY, WITH/WITHOUT BIOPSY(S) (WRVU 12.54) performed by Edwin Hwang MD at [facility] MAIN OR ??? PRO UPPER GI ENDOSCOPY, DIAGNOSTIC 01/20/2014 EGD, UPPER GI ENDOSCOPY performed by Corby Cano MD at [facility] ENDOSCOPY ??? PRO UPPER GI ENDOSCOPY, DIAGNOSTIC N/A 07/28/2017 EGD, UPPER GI ENDOSCOPY performed by Snow Liao MD at [facility] ENDOSCOPY ??? PRO VEIN BYPASS GRAFT, AORTOILIOFEMORAL N/A 09/07/2018 @BYPASS GRAFT, AORTOILIAC W\ VEIN CONDUIT (WRVU 41.88) performed by Isac Moody MD at [facility] MAIN OR ??? PRO VISCERAL AND INFRARENAL ABDOM AORTA ONE PROSTHESIS N/A 10/01/2021 @EVG REPAIR VISCERAL & INFRARENAL ABDML AORTA,FENESTRATED,ONE ARTERY,INC. S&I (WRVU 77.3) performed by Greyson Silverman MD at [facility] MAIN OR ??? VS ARTERIOGRAM RENAL VASCULAR SURGERY 08/01/2021 VS Arteriogram Renal Vascular Surgery 08/01/[address] [facility] INTERVENTIONL RAD SOCIAL HX: Social History Socioeconomic History ??? Marital status: Spouse name: Not on file ??? Number of children: Not on file ??? Years of education: Not on file ??? Highest education level: Not on file Occupational History ??? Not on file Tobacco Use ??? Smoking status: Former Smoker Packs/day: 0.50 Years: 45.00 Pack years: 22.50 Types: Cigarettes Quit date: 2007 Years since quittin.4 ??? Smokeless tobacco: Never Used ??? Tobacco comment: smoked for ~45 years up to 1 ppd at [place], quit ~1999 Vaping Use ??? Vaping Use: Never used Substance and Sexual Activity ??? Alcohol use: Yes Comment: a few glasses of wine, rarely 4 times a year ??? Drug use: No ??? Sexual activity: Yes Partners: Male Other Topics Concern ??? Abuse or Threat: Physical, Sexual, Verbal Not Asked ??? Abuse or Threat: Help requested by patient Not Asked ??? Alcohol/Drug Concern Not Asked ??? Back Care Not Asked ??? Bike Helmet Not Asked ??? Blood Transfusions No ??? Caffeine Concern Not Asked ??? Exercise Not Asked ??? Exercise: Patient reported Not Asked ??? Hobby Hazards Not Asked ??? Service No ??? Occupational Exposure Not Asked ??? Poor oral hygiene Not Asked ??? Seat Belt Not Asked ??? Second-hand smoke exposure Not Asked ??? Self-Exams Not Asked ??? Sleep Concern Not Asked ??? Special Diet Not Asked ??? Stress Concern Not Asked ??? Violence Concern Not Asked ??? Weight Concern Not Asked ??? Do You live alone? Not Asked ??? Tobacco in Home Not Asked Social History Narrative , lives with Rodolfo of 50 years. 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 Hoping to retire 11/2018 and travel throughout [facility] with Rodolfo. No history of heavy etoh use 2 children healthy Social Determinants of Health Financial Resource Strain: Not on file Food Insecurity: Not on file Transportation Needs: Not on file Physical Activity: Not on file Housing Stability: Not on file FAMILY HX: Family History Problem Relation Age of Onset ??? Hypertension Mother ??? Cervical Cancer Mother ??? Chronic Obstructive Pulmonary Disease Father ??? Hypertension Sister MEDICATIONS Home Meds: Medications Prior to Admission Medication Sig Dispense Refill Last Dose ??? traZODone (DESYREL) 150 mg Tablet TAKE ONE TABLET BY MOUTH AT BEDTIME NEEDED FOR SLEEP 09/30/2021 at Unknown time ??? carvediloL (Coreg) 12.5 mg Tablet Take 1 tablet by mouth 2 times daily (with meals). 180 tablet 3 10/01/2021 at Unknown time ??? hydrALAZINE (Apresoline) 25 mg Tablet Take 1 tablet by mouth 3 times daily. 270 tablet 3 09/30/2021 at Unknown time ??? isosorbide dinitrate (ISORDIL) 20 mg Tablet Take 1 tablet by mouth 3 times daily. 270 tablet 3 10/01/2021 at Unknown time ??? levothyroxine (Synthroid) 75 mcg Tablet Take 1 tablet by mouth daily. 90 tablet 3 10/01/2021 at Unknown time ??? amLODIPine (Norvasc) 5 mg Tablet Take 1 tablet by mouth daily. 90 tablet 1 10/01/2021 at Unknown time ??? cimetidine (TAGAMET) 400 mg Tablet Take 400 mg by mouth 2 times daily. 10/01/2021 at Unknown time ??? furosemide (Lasix) 20 mg Tablet Take 20 mg by mouth 2 times daily. Takes at 0800 and 1600 09/30/2021 at Unknown time ??? gabapentin (NEURONTIN) 100 mg Capsule Take 300 mg by mouth nightly. 09/30/2021 at Unknown time ??? atorvastatin (LIPITOR) 20 mg Tablet Take 1 tablet by mouth every evening. 90 tablet 3 10/01/2021 at Unknown time ??? acetaminophen (TYLENOL) 500 mg Tablet Take 1 tablet by mouth every 6 hours. 30 tablet 1 Past Week at Unknown time ??? aspirin 81 mg Tablet, Delayed Release (E.C.) Take 81 mg by mouth daily. 10/01/2021 at Unknown time ??? cloNIDine (CATAPRES) 0.1 mg Tablet Take 1 tablet by mouth every 8 hours as needed (Please take 1tablet, if systolic blood pressure is >200). 30 tablet 3 More than a month at Unknown time Medication list personally reviewed Current Meds: Scheduled: ??? amLODIPine 5 mg Oral Daily ??? carvediloL 12.5 mg Oral BID ??? furosemide 20 mg Oral BID ??? senna-docusate 2 tablet Oral BID ??? heparin (porcine) 5,000 Units Subcutaneous Q8H WILFRED ??? aspirin EC 81 mg Oral Daily ??? atorvastatin 20 mg Oral QPM ??? gabapentin 300 mg Oral Nightly ??? isosorbide dinitrate 20 mg Oral TID ??? sodium chloride 0.9 % (flush) 5 mL Intravenous BID ??? acetaminophen 1,000 mg Oral Q6H WILFRED ??? levothyroxine 50 mcg Oral QAM Drips: ??? PHENYLephrine Stopped (10/02/21 1003) PRN: sodium chloride 0.9 % (flush), lidocaine, ondansetron OR ondansetron, iohexoL, HYDROmorphone OR HYDROmorphone, oxyCODONE, traZODone No Known Allergies OBJECTIVE Vitals: T Temp: [36.5 ??C (97.7 ??F)-37.3 ??C (99.1 ??F)] HR Heart Rate: [73-99] BP BP: (155-177)/(63-122) RR Resp: [10-23] SpO2 SpO2: [84 %-100 %] 10/02 700 - 10/03 699 In: 2374 [P.O.:2049; I.V.:325] Out: 2034 [Urine:2034] Wt Last 45.9 kg (101 lb 3.2 oz) Admit 45.9 kg Physical Exam: CONST: Awake, alert, no acute distress EYES: sclerae anicteric ENT: moist mucous membranes, no oral thrush RESP: normal RR, air entry equal bilaterally, no rales/rhonchi CARDIAC: RRR, normal S1/S2, no appreciable murmurs GI: abdomen soft, non-tender, distended, normoactive bowel sounds, tympanic to percussion MSK: legs warm, palpable pulses b/l, no significant edema SKIN: No jaundice, rash, or bruising NEURO: Grossly intact, moves all extremities PSYCH: Pleasant, appropriate affect Labs: Labs personally reviewed in eDH CBC: Recent Labs 10/03/21 0115 10/02/21 0030 10/01/21 1720 10/01/21 1310 10/01/21 0730 WBC 23.3* 13.2* 12.2* 10.0* 6.2 HGB 11.2* 10.6* 11.7 10.6* 12.0 HCT 33.9* 31.8* 35.8 31.5* 37.2 PLATELET 159 180 212 179 220 MCV 80.3* 79.9* 81.0* 80.6* 81.6* RDWCV 17.3* 17.2* 17.3* 17.4* 17.2* COAG: No results for input(s): PTT, INR, PT in the last 168 hours. CHEM: Recent Labs 10/03/21 0115 10/02/21 0030 10/01/21 0730 GLUCOSE 124 149 118 NA 130* 136 137 K 4.0 4.0 3.6 CL 92* 102 101 CO2 25 20* 23 BUN 31* 34* 37* CREATININE 2.37* 2.14* 1.99* MAGNESIUM 1.23* 0.77 -- CALCIUM 8.2* 8.1* 9.2 HEPATIC: No results for input(s): ALKPHOS, ALT, AST, BILITOT, BILIDIR, LIPASE in the last 168 hours. INFLAMM: No results for input(s): CRP in the last 168 hours. IMAGING: Reports and images personally reviewed in eDH. Images independently interpreted. IR OR VASC Aniogram Image Storage Only Final Result ENDOSCOPY: [place] (06/2019): Sigmoid diverticulosis ASSESSMENT & PLAN: Abdominal distension and leukocytosis in absence of abdominal pain, diarrhea, or hematochezia. Recommend obtainig plain film of the abdomen today. Pending KUB can perform flex sig per vascular surgery request. Recmmendations: - NPO for now - KUB - Please given 2 tap water enemas this AM in anticipation of flex sig Patient seen with Dr. Rossi. Shahbaz Moses MD PGY-5, Gastroenterology I have seen and evaluated the patient with Dr. Moses. I have reviewed the fellow's history during the encounter and I agree with the details as written above. My physical examination confirms the above findings. The assessment and plan were formulated in discussion with me at the time of the encounter and I agree with them as documented. Silver Rossi MD, MS electronic scale assembler and tester Supervisor Throwing Department, Gastroenterology and Hepatology Plan of Care - Darshan Quintanilla RN - 10/02/2021 5:10 PM EDT OUTCOME EVALUATION NOTE: OUTCOME SUMMARY: Neuro remains unchanged. MAP goal liberalized. Junaid off, A-Line dc'd. LD removed. Diet advanced. PLAN MOVING FORWARD: AM Labs Q2 Neuro MAP >65 Q4 I&O Initial Assessments - Rosalia Serrano RN - 10/02/2021 1:19 PM EDT Office of Care Management Initial Assessment Rosalia Serrano RN reviewed record and discussed patient with Care Team. Source of Information: Team, bedside nurse, medical record, and Patient, Chart ReviewIntroduced self/reviewed role; services accepted. Reason for Hospitalization: S/p TEVAR Covid Vaccination Status: 1st, 2nd & booster (Vaccine x4 Moderna) Last COVID test: Lab Results Component Value Date [id number] Not Detected 10/01/2021 Past medical History: Past Medical History: Diagnosis Date ??? AAA (abdominal aortic aneurysm) [id number] angiogram; 3.2 cm infrarenal ??? Constipation ??? Dyslipidemia ??? Hypertension ??? Insomnia ??? Peripheral vascular disease ??? Renal artery stenosis R; per 2009 angiogram ??? SBO (small bowel obstruction) Hospitalizations Within the Past 30 Days: no previous admission in last 30 days Current Decision-Making Capacity: Self Advance Care Planning: Attempt Cardiopulmonary Resuscitation - Inpatient Received -Advanced Directive: Yes, on file Who is your DPOA-HC?: Spouse ( Rodolfo) Current Coping/Education/Information Needs: Pt feels well informed of the plan of care Current Functional Ability: Assistive Person Functional Status Prior to Admission: Independent Prior ADLs & IADLs: Independent with all ADLs & IADLs Home Environment: Others in the home: spouse. Current Living Arrangements: home/apartment/condo. Accessibility Concerns:2 story house with 2 steps to enter. Pt can live on first floor if needed. Resource / Environmental Concerns: Resource/Environmental Concerns: none Current DME: none Home Address confirmed as: [address] [address] [place] [id number] Social & Family Supports: All names listed below confirmed with patient as current and correct Extended Emergency Contact Information Primary Emergency Contact: Rodolfo Harmon Address: [address] [address] [facility] Relation: Spouse Secondary Emergency Contact: Mary Harmon Address: [address] [place] [address] [facility] Relation: Child Current Care Provided by: self Provides Primary Care For: no one Caregiver if needed: spouse Quality of Family relationships: helpful, involved, supportive Community Resources being provided currently: none Behavioral Health History: None identified Substance Use/Abuse listed: Social History Tobacco Use Smoking Status Former Smoker ??? Packs/day: 0.50 ??? Years: 45.00 ??? Pack years: 22.50 ??? Types: Cigarettes ??? Quit date: 2007 ??? Years since quittin.4 Smokeless Tobacco Never Used Tobacco Comment smoked for ~45 years up to 1 ppd at max, quit ~1999 0 No problems reported 1-2 Low level 3-5 Moderate level 6-8 Substantial level 9- 10 Severe level 0 to 7 points: Low risk 8 to 15 points: Medium risk 16 to 19 points: High risk 20 to 40 points: Addiction likely Other Pertinent/Service Specific Information: None Health/Prescription Coverage: Primary Insurance: MEDICARE Payor: MEDICARE / Plan: MEDICARE PART A & B / Product Type: *No Product type* / Secondary Insurance: GroupMe [facility] Prescription Coverage: Yes Preferred Pharmacy: [id number] [address] Status: Patient is a : No Primary Care Provider: Sanjuanita Lee MD [phone] Patient/Caregiver Goals of Treatment: I have had the [facility] before and if I need them again that is fine. Potential Needs for Transition of Care: none Agency Referrals: Not Applicable Transportation: no concerns Transportation Anticipated: family or friend will provide Concerns to be Addressed: discharge planning Assessment: Patient is admitted to critical care service for s/p TEVAR and needing Q 1 hr neurovascular checks, VS and lumbar drain. Plan: Will send referrals as needed when medically appropriate. A member of the Care Management team will continue to monitor progress, follow for continuity of care and assist with transition of care planning. Rosalia Serrano RN [facility] Phone [phone] Pager [phone] Brief Op Note - Stephanie Cevallos MD - 10/01/2021 5:59 PM EDT Brief Operative Note Patient Name: Pretty Harmon : [id number] MR#: [id number] Case Date: 10/01/2021 Surgeon: Surgeon(s) and Role: * Greyson Silverman MD - Primary * Stephanie Cevallos MD - Fellow Preoperative diagnosis: Enlarging Fusiform AAA Postoperative diagnosis: Enlarging Fusiform AAA Procedure: Bilateral ultrasound guided large bore common femoral artery access for endograft delivery (R 14F, L18F) One vessel physician modified aortic endograft repair ?? Surgeons: MD Stephanie Canchola MD Anesthesia: General endotracheal anesthesia ?? Fluids: 1300 mL crystalloid ?? Heparin: 8000 units ?? Protamine: 50 mg ?? Fluoro Time: 31.4 min ?? Contrast: 11.5 mL ?? EBL: 100 mL ?? UOP: See anesthesia record ?? Indications for the Procedure: Pretty Harmon is a 70 year odl woman with a history of a right renal artery bypass with vein (Right external iliac to right renal artery bypass with reversed right greater saphenous vein) on 09/07/2018 for flash pulmonary edema and elevated Cr to baseline 1.9. She has a known thoracoabdominal aortic aneurysm that has enlarged and is now 5.6 cm in diameter. She presents for endovascular repair. ?? Findings: Anatomy consistent with pre-operative imaging. Bilateral percutaneous femoral arterial access (14Fr right,??18Fr left).?? Successful repair??of??abdominal??aortic aneurysm with physician modified aortic endograft -Thoracic component - Cook Zenith Alpha [id number] via left groin ?- Visceral component - Cook Zenith Alpha??[id number] via left groin ?- SMA -??10 x 39 mm VBX, proximally flared 12 mm - Distal extension - Muscadine [id number] main body, left - Muscadine [id number] right limb extension Patent bilateral hypogastric artery Good hemostasis with bilateral pre-close technique (right x 2, left x 2). Bilateral??warm feet with??palpable DP/PT bilaterally Neuro exam normal at the completion of the case. Patient moving all four extremities to command. ?? Op Note - Stephanie Cevallos MD - 10/01/2021 9:42 AM EDT [facility] [place] Patient Name: Pretty Harmon : [id number] MR#: [id number] Case Date: 10/01/2021 Surgeon: Surgeon(s) and Role: * Greyson Silverman MD - Primary * Stephanie Cevallos MD - Fellow Preoperative diagnosis: Enlarging Fusiform AAA ?? Postoperative diagnosis: Enlarging Fusiform AAA ?? Procedure:?? Bilateral ultrasound guided large bore common femoral artery access for endograft delivery (R 14F, L18F) One vessel physician modified aortic endograft repair ?? Surgeons:?? MD Stephanie Canchola MD ?? Anesthesia:??General endotracheal anesthesia ?? Fluids:??1300 mL crystalloid ?? Heparin:??8000??units ? Protamine:??50??mg ?? Fluoro Time:??31.4??min ?? Contrast:??11.5??mL ?? EBL:??100??mL ?? UOP:??See anesthesia record? Indications for the Procedure:??Pretty Harmon is a 70 year odl woman with a history of a right ??renal artery bypass with vein (Right external iliac to right renal artery bypass with reversed right greatersaphenous vein) on 09/07/2018 for flash pulmonary edema and elevated Cr??to baseline 1.9. She has a known thoracoabdominal aortic aneurysm that has enlarged and is now 5.6 cm in diameter. She presents for endovascular repair. ?? Findings:?? Anatomy consistent with pre-operative imaging. Bilateral percutaneous femoral arterial access (14Fr right,??18Fr left).?? Successful repair??of??abdominal??aortic aneurysm with physician modified aortic endograft -Thoracic component - Cook Zenith Alpha [id number] via left groin ?- Visceral component - Cook Zenith Alpha??[id number] via left groin ?- SMA -??10 x 39??mm VBX, proximally flared 12??mm ?- Distal extension ?- Nadia [id number] main body, left ?- Muscadine [id number] right limb extension Patent bilateral hypogastric artery Good hemostasis with bilateral pre-close technique (right x??2, left x??2). Bilateral??warm feet with??palpable??DP/PT??bilaterally Neuro exam normal at the completion of the case. Patient moving all four extremities to command.?? Operative Procedure: The patient was met in the pre-procedure holding area, identity verified, procedure verified, site marked as needed, and informed consent obtained, with all questions answered. After this, a Zenith Alpha??stent-graft??as above??was prepared in the??operating room??in standard sterile fashion prior to bringing the patient into the operating room. Reinforced fenestrations were created to accommodate the superior mesenteric artery. The celiac artery and bilateral renal arteries was noted to be previously occluded (the patient has a right external iliac artery to renal artery bypass). To do this, the device was flushed and unsheathed. A single fenestration was created using heat electrocautery in the graft material at predetermined locations based on preoperative 3D reconstruction. Once the fenestration was created to our satisfaction, it was reinforced with a PTFE sealing ring along with a??[place] coil, which were sewn circumferentially to the fenestration using a CV-6 suture.??Next, diameter-reducing ties were placed using chromic sutures??around selected stents to allow for appropriate graft sizing and??selection when the graft was deployed. Next a V18 wire was woven through the posterior graft using a micropuncture needle near the seam as a trigger wire, secured to the graft with 5-0 prolene suture.??The graft was then re-sheathed in the original sheath and placed on the sterile instrument table for use as a main device in the patient's repair. ? As the graft was being completed, the patient was brought into the operating room and placed??in thesupine position on the operating room table. General anesthesia was induced and the patient was intubated with an endotracheal tube.??Additional support lines??(Caballero, PIVs, arterial line, lumbar drain) were placed. The bilateral groins were??then prepped and draped in the usual sterile fashion. Preoperative antibiotics were administered, and a standard time out was completed prior to initiating the procedure, with all in agreement.?? The operation then began with percutaneous access of the common femoral arteries??under fluoroscopicand ultrasound guidance using a micropuncture technique. A cope wire was inserted and upsized to a 5French sheath over a??stiff glidewire. On the right side, two PerCloses were placed in the pre-close fashion.??On the left the same was done.??Systemic heparin was administered, serial??ACTs were??monitored throughout the case, and heparin was redosed as needed. From??the right??an 8F tourguide was advanced following the perclose devices. This was left in place. The left groin had a 9F sheath. Throu gh this, a??soft glidewire??and KMP catheter were??advanced through the sheath over the wire??into the??aorta??and wire access to the descending thoracic aorta was obtained under fluoroscopic guidance.A pigtail catheter was advanced into the aorta at the approximate level of the SMA. CO2 angiogram was performed to delineate the SMA. Via the right groin tourguide, an NTA and floppy glide were used tocannulate and premark the SMA. The floppy glide was exchanged for a hutchins wire. On the left, the 9F sheath was exchanged for the 18F dryseal. The thoracic component was advanced into approximate position and deployed. Next, the??modified device was then advanced??from the left side. This was oriented based on the SMA fenestration. The hutchins wire and catheter were pulled from the SMA. The device was unsheathed and we cannulated the device with the NTA and floppy glide and selected the SMA fenestration. The tourguide was removed and the 14F dryseal sheath was advanced over the hutchins wire. The right groin sheath was nonocclusive in the external iliac during the duration of the case to protect the renal bypass perfusion. Once the device was aligned and the SMA fenestration was selected, the trigger wire was pulled to completely deploy the graft. It was in excellent position. Following this, the 10 x 39??mm VBX was loaded and deployed into the proximal SMA. This was proximally flared with a 12??mm x 20mm mustang balloon. There was no residual stenosis following the flaring. At this time, a DSA was performed to assess the patency as well as distal SMA to ensure there was no dissection. The stent positioning was excellent, widely patent, without evidence of dissection or perforation. The constraining chromic sutures were disupted with a MOB balloon. Distally the Cook endografts wereextended with??the Muscadine Excluder as above via the left side. This was positioned below the SMA stentgraft. The contralateral side was cannulated with a TourGuide, NTA catheter and soft glidewire. Entry into the gate was confirmed with a MOB balloon. An ipsilateral pelvic angiogram with CO2 was completed and the main body deployment was completed taking care to preserve the hypogastric artery. The contralateral limb length was measured with a pigtail. The contralateral limb was advanced with appropriate overlap and deployed. Repeat angiogram was notable for a patent hypogastric artery bilaterally. The proximal portion of the Muscadine Excluder and all iliac overlap zones was ballooned with a MOB balloon on both sides. Two Cullen balloons, in a kissing fashion, were used to balloon the iliac limbs to 14mm (14x40) due to the significant common iliac stenosis bilaterally. The stent grafts expanded well. No completion angiogram was performed due to her CKD. ?? The PerCloses were fully deployed and the wire and sheaths were removed.??Manual pressure was held. Hemostasis was noted. The patient had newly palpable left pedal pulses and continued palpable pulses on the right. Protamine was given.??Dermabond was applied to each skin incision to appose the skin and seal the wounds,??and dry sterile dressing was applied. All counts were correct at the end of the case. The patient was awakened, extubated, and transferred to the ICU in stable condition, grossly neurologically intact. Dr. Silverman, the attending surgeon, was scrubbed and present for the entire procedure. Associated attestation - Greyson Silverman MD - 10/03/2021 8:23 AM EDT Attestation: Case Date: 10/01/2021 I was present and I participated during the entire procedure (does not need to include opening and closing). Greyson Silverman MD 10/03/2021 documented in this encounter Plan of Treatment Scheduled Procedures Name Priority Associated Diagnoses Date/Time EGD, UPPER GI ENDOSCOPY Gastroesophageal reflux disease, esophagitis presence not specifi ed documented as of this encounter Procedures Procedure Name Priority Date/Time Associated Comments Diagnosis HEMOGRAM Routine 10/07/2021 6:36 AM Results f or this EDT procedure are i n the results section. DIFFERENTIAL, Routine 10/07/2021 6:36 AM Results for this AUTOMATED EDT procedure are i n the results section. HC CBC,PLT & AUTO DIFF Routine 10/07/2021 6:36 AM EDT BASIC METABOLIC PANEL Routine 10/07/2021 6:36 AM Results for this (NON-FASTING) EDT procedure are in the results section. HEMOGRAM Routine 10/06/2021 3:15 AM Results f or this EDT procedure are i n the results section. DIFFERENTIAL, Routine 10/06/2021 3:15 AM Results for this AUTOMATED EDT procedure are i n the results section. HC CBC,PLT & AUTO DIFF Routine 10/06/2021 3:15 AM EDT BASIC METABOLIC PANEL Routine 10/06/2021 3:15 AM Results for this (NON-FASTING) EDT procedure are in the results section. HEMOGRAM Routine 10/05/2021 1:00 AM Results f or this EDT procedure are i n the results section. DIFFERENTIAL, Routine 10/05/2021 1:00 AM Results for this AUTOMATED EDT procedure are i n the results section. HC CBC,PLT & AUTO DIFF Routine 10/05/2021 1:00 AM EDT BASIC METABOLIC PANEL Routine 10/05/2021 1:00 AM Results for this (NON-FASTING) EDT procedure are in the results section. URINALYSIS MICROSCOPIC Routine 10/04/2021 6:10 PM Results for this EXAM EDT procedure are i n the results section. URINALYSIS WITH REFLEX Routine 10/04/2021 6:10 PM Results for this CULTURE EDT procedure are i n the results section. CT CHEST, ABDOMEN, STAT 10/04/2021 7:47 AM Res ults for this PELVIS WO CONTRAST EDT procedure are in the results section. COVID-19 PCR Routine 10/04/2021 1:20 AM Results f or this EDT procedure are i n the results section. SCAN, PERIPHERAL BLOOD Routine 10/04/2021 1:20 AM Results for this EDT procedure are i n the results section. HEMOGRAM Routine 10/04/2021 1:20 AM Results f or this EDT procedure are i n the results section. DIFFERENTIAL, Routine 10/04/2021 1:20 AM Results for this AUTOMATED EDT procedure are i n the results section. HC CBC,PLT & AUTO DIFF Routine 10/04/2021 1:20 AM EDT BASIC METABOLIC PANEL Routine 10/04/2021 1:20 AM Results for this (NON-FASTING) EDT procedure are in the results section. GREEN TUBE HOLD Routine 10/03/2021 8:00 PM Result s for this EDT procedure are i n the results section. FLEXIBLE SIGMOIDOSCOPY 10/03/2021 2:40 PM ischemic col itis EDT FLEXIBLE SIGMOIDOSCOPY Routine 10/03/2021 2:25 PM Results for this EDT procedure are i n the results section. ELECTROLYTES PANEL Routine 10/03/2021 2:15 PM Res ults for this EDT procedure are i n the results section. XR ABDOMEN FLAT AND STAT 10/03/2021 11:00 Resu lts for this UPRIGHT AM EDT procedure are i n the results section. HEMOGRAM STAT 10/03/2021 9:05 AM Results f or this EDT procedure are i n the results section. DIFFERENTIAL, STAT 10/03/2021 9:05 AM Results for this AUTOMATED EDT procedure are i n the results section. HC L-LACTATE STAT 10/03/2021 9:05 AM Results f or this EDT procedure are i n the results section. HC CBC,PLT & AUTO DIFF STAT 10/03/2021 9:05 AM EDT BASIC METABOLIC PANEL STAT 10/03/2021 9:05 AM Results for this (NON-FASTING) EDT procedure are in the results section. SCAN, PERIPHERAL BLOOD Routine 10/03/2021 1:15 AM Results for this EDT procedure are i n the results section. HEMOGRAM Routine 10/03/2021 1:15 AM Results f or this EDT procedure are i n the results section. DIFFERENTIAL, Routine 10/03/2021 1:15 AM Results for this AUTOMATED EDT procedure are i n the results section. HC CBC,PLT & AUTO DIFF Routine 10/03/2021 1:15 AM EDT HC PHOSPHORUS, SERUM Routine 10/03/2021 1:15 AM R esults for this EDT procedure are i n the results section. HC MAGNESIUM, SERUM Routine 10/03/2021 1:15 AM Re sults for this EDT procedure are i n the results section. HEPATIC FUNCTION PANEL Routine 10/03/2021 1:15 AM Results for this EDT procedure are i n the results section. BASIC METABOLIC PANEL Routine 10/03/2021 1:15 AM Results for this (NON-FASTING) EDT procedure are in the results section. HEMOGRAM Routine 10/02/2021 12:30 Results for this AM EDT procedure are i n the results section. DIFFERENTIAL, Routine 10/02/2021 12:30 Results fo r this AUTOMATED AM EDT procedure are i n the results section. HC CBC,PLT & AUTO DIFF Routine 10/02/2021 12:30 AM EDT HC PHOSPHORUS, SERUM Routine 10/02/2021 12:30 Res ults for this AM EDT procedure are i n the results section. HC MAGNESIUM, SERUM Routine 10/02/2021 12:30 Resu lts for this AM EDT procedure are i n the results section. BASIC METABOLIC PANEL Routine 10/02/2021 12:30 Re sults for this (NON-FASTING) AM EDT procedure are in the results section. HEMOGRAM Timed 10/01/2021 5:20 PM Results f or this EDT procedure are i n the results section. DIFFERENTIAL, Timed 10/01/2021 5:20 PM Results for this AUTOMATED EDT procedure are i n the results section. HC CBC,PLT & AUTO DIFF Timed 10/01/2021 5:20 PM EDT HC FREE THYROXINE (T4) Routine 10/01/2021 5:20 PM Results for this EDT procedure are i n the results section. HEMOGRAM STAT 10/01/2021 1:10 PM Results f or this EDT procedure are i n the results section. DIFFERENTIAL, STAT 10/01/2021 1:10 PM Results for this AUTOMATED EDT procedure are i n the results section. HC CBC,PLT & AUTO DIFF STAT 10/01/2021 1:10 PM EDT POCT GLUCOSE Routine 10/01/2021 12:27 Results for this PM EDT procedure are i n the results section. RAPID COVID-19 PCR Routine 10/01/2021 11:35 Resul ts for this (MH/APD/NLH) AM EDT procedure are in the results section. BLOOD GAS 2 ARTERIAL Routine 10/01/2021 9:39 AM R esults for this EDT procedure are i n the results section. IR OR VASC ANGIOGRAM Routine 10/01/2021 8:51 AM R esults for this IMAGE STORAGE ONLY EDT procedure are in the results section. @EVG REPAIR VISCERAL & 10/01/2021 8:19 AM Pre-op testing INFRARENAL ABDML EDT Abdominal aortic AORTA,FENESTRATED,ONE aneurysm (AAA) ARTERY,INC. S&I (WRVU without rupture 77.3) TYPE AND SCREEN Routine 10/01/2021 7:30 AM Result s for this VALIDITY EDT procedure are i n the results section. ABORH RECHECK STATUS Routine 10/01/2021 7:30 AM R esults for this EDT procedure are i n the results section. HC HEMOGRAM STAT 10/01/2021 7:30 AM Pre-op testin g Results for this EDT Abdominal aortic procedure a re in aneurysm (AAA) the results without rupture section. HC ANTIBODY Routine 10/01/2021 7:30 AM Pre-op testin g DETECTION,CAPTURE-R EDT Abdominal aortic aneurysm (AAA) without rupture ABO/RH TYPING Routine 10/01/2021 7:30 AM Pre-op testin g Results for this EDT Abdominal aortic procedure a re in aneurysm (AAA) the results without rupture section. ANTIBODY SCREEN Routine 10/01/2021 7:30 AM Pre-op testin g Results for this EDT Abdominal aortic procedure a re in aneurysm (AAA) the results without rupture section. HC PREALBUMIN, SERUM STAT 10/01/2021 7:30 AM Pre-op t esting Results for this EDT Abdominal aortic procedure a re in aneurysm (AAA) the results without rupture section. BASIC METABOLIC PANEL STAT 10/01/2021 7:30 AM Pre-op testing Results for this (NON-FASTING) EDT Abdominal aortic procedure are in aneurysm (AAA) the results without rupture section. EVG RPR VISCERAL & Routine 10/01/2021 6:40 AM Pre-op gracia ting INFRARENAL ABDML EDT Abdominal aortic AORTA,FENESTRATED,ONE aneurysm (AAA) ART,S&I without rupture IMPLANTABLE DEVICES 10/01/2021 12:00 SCAN AM EDT documented in this encounter Results Duplex Study Visceral Arteries, Comp (10/30/2021 10:07 AM EDT) Component Value Ref Test Analysis Performed At [facility] Range Method Time Signature VB Text Department: Vascular Surgery Lab VAS[facility] Report Patient: [id number] (PRETTY HARMON) CPT: 24457 Referring Physician: CANDIDA VELEZ ?? Indications: ??hx PMEG Findings: Unilateral ? [...] Volume Laterality 10/30/2021 10:07 AM EDT Candida Velez FIELD SERVICE ANALYST VASCULAR ORDERABLES Performing Organization Address City/State/ZIP Code Phon e Number VASCU[facility] CT Chest Abdomen Pelvis wo Contrast (10/30/2021 9:30 AM EDT) Anatomical Region Laterality Modality Abdomen, Pelvis Computed Tomography Specimen (Source) Anatomical Collection Method Collection Time Re ceived Time Location / / Volume Laterality 10/30/2021 9:27 AM EDT Impressions 10/30/2021 11:07 AM EDT 1. ??Stable position of thoracoabdominal aortic endograft. Decreased size of infrarenal little traverse abdominal aortic aneur ysm sac dimensions. Thank you for letting us participate in the care of this patient. ??If you are a health care provider and have any questi ons regarding this report, please contact the number below. ??For patients who have questions please contact the health intensive care specialist that requested your imaging first. ? Narrative 10/30/2021 11:07 AM EDT EXAMINATION: CT [...] Decreased size of infrarenal abdominal a ortic little traverse aneurysm sac, measuring approximately 3.6 x 4.1 [...] s. Procedure Note Brent Dhaliwal MD - 10/30/2021Form atting of this note might be different [...] Decreased size of infrarenal abdominal a ortic little traverse aneurysm sac, measuring approximately 3.6 x 4.1 [...] a ortic endograft. Decreased size of infrarenal little traverse abdominal aortic aneur ysm sac dimensions. Thank you for letting us participate in the care of this patient. If you are a health care provider and have any questi ons regarding this report, please contact the number below. For patients w ho have questions please contact the health intensive care specialist that requested your imaging first. Electronically signed by: Brent torre MD, [facility] ([phone]), at 10/30/2021 11:07 AM Domingo Coy MD IMG CT ORDERABLES AAA Duplex, Complete/Bilateral (10/30/2021 7:32 AM EDT) Component Value Ref Test Analysis Performed At [facility] Range Method Time Signature VB Text Department: Vascular Surgery Lab VASCUBASE Report Patient: [id number] (PRETTY [place]) CPT: 61191 Referring Physician: CANDIDA VELEZ ?? Indications: s/p PMEG 09/27/2021; ?patency/endoleak Findings: [...] Volume Laterality 10/30/2021 7:32 AM EDT Candida Velez FIELD SERVICE ANALYST VASCULAR ORDERABLES Performing Organization Address City/State/ZIP Code Phon e Number [id number] Renal Artery Duplex, Unil (10/30/2021 7:32 AM EDT) Component Value Ref Test Analysis Performed At [facility] Range Method Time Signature VB Text Department: Vascular Surgery Lab [email or web address] Report Patient: [id number] (PRE[place]) CPT: 09978 Referring Physician: CANDIDA VELEZ ?? Indications: history of RT iliac --> [...] Volume Laterality 10/30/2021 7:32 AM EDT Candida Velez APRN VASCULAR ORDERABLES Performing Organization Address City/State/ZIP Code Phon e Number [id number] (ABNORMAL) Creatinine (10/30/2021 7:03 AM EDT) Analysis Performed At Patho logist Time Signature Creatinine 3.04 (H) 0.70 - [place] 1.20 mg/dL [facility] Estimated GFR 16 (L) >=60 [place] mL/min/1.7 [facility] 3 m?? [facility] Comment: This [...] Resulting Agency Comment Spec In Lab Candida Velez APRN CHEMISTRY ORDERABLES Performing Organization Address City/State/ZIP Code Phon e Number [place] [id number] (ABNORMAL) Differential, Automated (10/07/2021 6:36 AM EDT) [facility] gist Method Time Signature Neutrophils % 61.1 % [facility] Neutr Abs (ANC) 7.16 (H) 1.70 - [facility] 6.10 [facility] x10(3)/[facility] LABORATORY Lymphocytes % 13.2 % [facility] Lymphocytes Abs 1.6 0.9 - 3.2 [facility] x10(3)/[place] LABORATORY Monocytes % 14.7 % [facility] Monocyte Abs 1.7 (H) 0.3 - 0.9 [facility] x10(3)/[place] LABORATORY Eosinophils % 6.3 % [facility] Eosinophils Abs 0.7 (H) 0.0 - 0.4 [facility] x10(3)/[place] LABORATORY Basophils % 0.7 % [facility] Basophils Abs 0.1 0.0 - 0.1 [facility] x10(3)/[place] LABORATORY Immature Gran % 4.00 % [facility] Comment: Immature granulocytes(IG's)percentage an d absolute count will include metamyelocytes, myelocytes, and promyelo cytes. Blood smears from CBCs yielding IG's will be scanned manually for concor dance. If this scan disagrees with the automated IG or if promyelocytes are not ed, a manual differential will be performed. Blanca Gran Abs 0.47 (H) 0.00 - 0.04 x10(3)/[facility] LABORATORY Specimen Anatomical Collection Method Collection Time Receive d Time (Source) Location / / Volume Laterality Blood 10/07/2021 6:36 AM 7:21 EDT AM EDT Resulting Agency Comment Spec In Lab Fili Woodward MD HEMATOLOGY ORDERABLES Performing Organization Address City/State/[place] [address] (ABNORMAL) Hemogram (10/07/2021 6:36 AM EDT) [facility] gist Method Time Signature WBC 11.7 (H) 4.0 - 9.5 [facility] x10(3)/[facility] LABORATORY RBC 3.88 (L) 4.00 - [facility] 5.21 [facility] x10(6)/[facility] LABORATORY Hemoglobin 10.0 (L) 11.7 - [facility] 15.5 g/dL [facility] Hematocrit 30.4 (L) 35.7 [facility] MCV 78.4 (L) 82.6 [facility]ATORY MCH 25.8 (L) 27.1 - [facility] 32.0 pg [facility] MCHC 32.9 31.7 - [facility] 35.0 g/dL [facility] Platelets 272 145 - 357 [facility] x10(3)/[facility] LABORATORY RDWSD 50.4 (H) 37.0 - [facility] [address] [facility] LABORATORY RDWCV 17.6 (H) 11.5 - [facility] 14.1 % [facility] MPV 11.6 7.6 - 12.9 [facility] LABORATORY nRBC % Auto 0.2 % [facility] nRBC Abs Auto 0.020 (H) 0.000 - [facility] 0.000 [facility] x10(3)/[facility] LABORATORY Specimen Anatomical Collection Method Collection Time Receive d Time (Source) Location / / Volume Laterality Blood 10/07/2021 6:36 AM 2 7:21 EDT AM EDT Resulting Agency Comment Spec In Lab Fili Woodward MD HEMATOLOGY ORDERABLES Performing Organization Address City/State/ZIP Code Phon e Number [place] [phone] (ABNORMAL) Basic Metabolic Panel (non-fasting) (10/07/2021 6:36 AM EDT) athologist Signature Glucose Lvl 91 65 - 199 [facility] mg/dL [facility] Comment: Diabetes: >=200 mg/dL plus symp toms BUN 43 (H) 8 - 18 mg/dL [facility]ORY Creatinine 2.41 (H) 0.70 - 1.20 mg/dL [facility] Sodium 132 (L) 135 - 145 mmol/L [facility] Potassium 3.5 3.5 - 5.0 mmol/L [facility] Comment: Please note: ??Patients with WBC >100,00 0 may have falsely elevated Potassium levels. ??For accurate Potassium quantif ication in these patients send serum separator tube (gold top) for subsequent determinations. ??Contact the Clinical Chemistry Laboratory if there are any qu estions. Chloride 95 (L) 98 - 107 mmol/L [facility] CO2 20 (L) 22 - 31 mmol/L [facility] Anion Gap 17 (H) 5 - 15 mmol/L [facility] Calcium 8.3 (L) 8.5 - 10.5 mg/dL [facility] Estimated GFR 19 (L) >=60 mL/min/1.73 m?? [facility] Comment: This patient? s estimated glomerular filtration rate (eGFR) is between 19 mL/min/1.73 m2 (patients with less muscl e mass) and 23 mL/min/1.73 m2 (patients with more muscle mass) as determined by the CKD-EPI equation. Assessment of eGFR is not appropriate when creatinine concentrations are rapidly changing. For clinical decisions where creatinine clearance will affect therapy, a 24-hour urine creatinine clearance may b e advised. Assignment of CKD stage 1 - 5 for patien ts with an eGFR near the transition point between stages may be based on cli nical assessment of muscle mass and symptoms in addition to eGFR. Specimen Anatomical Collection Method Collection Time Receive d Time (Source) Location / / Volume Laterality Blood 10/07/2021 6:36 AM 7:21 EDT AM EDT Resulting Agency Comment Spec In Lab Greyson Silverman MD CHEMISTRY ORDERABLES Performing Organization Address City/State/[place] [address] (ABNORMAL) Differential, Automated (10/06/2021 3:15 AM EDT) [facility] Method Time Signature Neutrophils % 76.0 % [facility] Neutr Abs (ANC) 11.80 (H) 1.70 - [facility] 6.10 [facility] x10(3)/[facility] LABORATORY Lymphocytes % 8.4 % [facility] Lymphocytes Abs 1.3 0.9 - 3.2 [facility] x10(3)/[place] LABORATORY Monocytes % 10.2 % [facility] Monocyte Abs 1.6 (H) 0.3 - 0.9 [facility] x10(3)/[place] LABORATORY Eosinophils % 4.2 % [facility] Eosinophils Abs 0.7 (H) 0.0 - 0.4 [facility] x10(3)/[place] [facility]ORY Basophils % 0.3 % [facility] Basophils Abs 0.0 0.0 - 0.1 [facility] x10(3)/[place] LABORATORY Immature Gran % 0.90 % [facility] Comment: Immature granulocytes(IG's)percentage an d absolute count will include metamyelocytes, myelocytes, and promyelo cytes. Blood smears from CBCs yielding IG's will be scanned manually for concor dance. If this scan disagrees with the automated IG or if promyelocytes are not ed, a manual differential will be performed. Blanca Gran Abs 0.14 (H) 0.00 - 0.04 x10(3)/[facility] LABORATORY Specimen Anatomical Collection Method Collection Time Receive d Time (Source) Location / / Volume Laterality Blood 10/06/2021 3:15 AM 3:19 EDT AM EDT Resulting Agency Comment Spec In Lab Fili Woodward MD HEMATOLOGY ORDERABLES Performing Organization Address City/State/[place] [address] (ABNORMAL) Hemogram (10/06/2021 3:15 AM EDT) Analysis Performed At Patho logist Time Signature WBC 15.5 (H) 4.0 - 9.5 [facility] x10(3)/[facility] LABORATORY RBC 3.44 (L) 4.00 - [facility] 5.21 [facility] x10(6)/[facility] LABORATORY Hemoglobin 9.3 (L) 11.7 - [facility] 15.5 g/dL [facility] Hematocrit 27.3 (L) 35.7 - [facility] 45.8 % [facility] MCV 79.4 (L) 82.6 - [facility]ORY MCH 27.0 (L) 27.1 - [facility] 32.0 pg [facility] MCHC 34.1 31.7 - [facility] g/dL [facility] Platelets 210 145 - 357 [facility] x10(3)/[facility] LABORATORY RDWSD 51.3 (H) 37.0 - [facility] [address] [facility] LABORATORY RDWCV 17.7 (H) 11.5 - [facility] 14.1 % [facility] MPV 10.6 7.6 - 12.9 [facility] LABORATORY nRBC % Auto 0.0 % [facility] nRBC Abs Auto 0.000 0.000 - [facility] 0.000 [facility] x10(3)/[facility] LABORATORY Specimen Anatomical Collection Method Collection Time Receive d Time (Source) Location / / Volume Laterality Blood 10/06/2021 3:15 AM 2 3:19 EDT AM EDT Resulting Agency Comment Spec In Lab Fili Woodward MD HEMATOLOGY ORDERABLES Performing Organization Address City/State/[place] [address] (ABNORMAL) Basic Metabolic Panel (non-fasting) (10/06/2021 3:15 AM EDT) P athologist Signature Glucose Lvl 91 65 - 199 [facility] mg/dL [facility] Comment: Diabetes: >=200 mg/dL plus symp toms BUN 42 (H) 8 - 18 mg/dL [facility] Creatinine 2.76 (H) 0.70 - 1.20 mg/dL [facility] Sodium 134 (L) 135 - 145 mmol/L [facility] Potassium 3.7 3.5 - 5.0 mmol/L [facility] Comment: Please note: ??Patients with WBC >100,00 0 may have falsely elevated Potassium levels. ??For accurate Potassium quantif ication in these patients send serum separator tube (gold top) for subsequent determinations. ??Contact the Clinical Chemistry Laboratory if there are any qu estions. Chloride 97 (L) 98 - 107 mmol/L [facility] CO2 23 22 - 31 mmol/L [facility] Anion Gap 14 5 - 15 mmol/L [facility] Calcium 8.1 (L) 8.5 - 10.5 mg/dL [facility] Estimated GFR 16 (L) >=60 mL/min/1.73 m?? [facility] Comment: This patient? s estimated glomerular filtration rate (eGFR) is between 16 mL/min/1.73 m2 (patients with less muscl e mass) and 19 mL/min/1.73 m2 (patients with more muscle mass) as determined by the CKD-EPI equation. Assessment of eGFR is not appropriate when creatinine concentrations are rapidly changing. For clinical decisions where creatinine clearance will affect therapy, a 24-hour urine creatinine clearance may b e advised. Assignment of CKD stage 1 - 5 for patien ts with an eGFR near the transition point between stages may be based on cli nical assessment of muscle mass and symptoms in addition to eGFR. Specimen Anatomical Collection Method Collection Time Receive d Time (Source) Location / / Volume Laterality Blood 10/06/2021 3:15 AM 3:19 EDT AM EDT Resulting Agency Comment Spec In Lab Greyson Silverman MD CHEMISTRY ORDERABLES Performing Organization Address City/State/[place] [address] (ABNORMAL) Differential, Automated (10/05/2021 1:00 AM EDT) [facility] gist Method Time Signature Neutrophils % 80.7 % [facility] Neutr Abs (ANC) 18.09 (H) 1.70 - [facility] 6.10 [facility] x10(3)/[facility] LABORATORY Lymphocytes % 5.9 % [facility] Lymphocytes Abs 1.3 0.9 - 3.2 [facility] x10(3)/[place] LABORATORY Monocytes % 9.7 % [facility] Monocyte Abs 2.2 (H) 0.3 - 0.9 [facility] x10(3)/[place] LABOR[facility]ORY Eosinophils % 2.2 % [facility] Eosinophils Abs 0.5 (H) 0.0 - 0.4 [facility] x10(3)/[place] LABORATORY Basophils % 0.2 % [facility] Basophils Abs 0.0 0.0 - 0.1 [facility] x10(3)/[place] LABORATORY Immature Gran % 1.30 % [facility] Comment: Immature granulocytes(IG's)percentage an d absolute count will include metamyelocytes, myelocytes, and promyelo cytes. Blood smears from CBCs yielding IG's will be scanned manually for concor dance. If this scan disagrees with the automated IG or if promyelocytes are not ed, a manual differential will be performed. Blanca Gran Abs 0.30 (H) 0.00 - 0.04 x10(3)/[facility] LABORATORY Specimen Anatomical Collection Method Collection Time Receive d Time (Source) Location / / Volume Laterality Blood 10/05/2021 1:00 AM 2 1:12 EDT AM EDT Resulting Agency Comment Spec In Lab Fili Woodward MD HEMATOLOGY ORDERABLES Performing Organization Address City/State/[place] [address] (ABNORMAL) Hemogram (10/05/2021 1:00 AM EDT) Analysis Performed At Patho logist Time Signature WBC 22.4 (H) 4.0 - 9.5 [facility] x10(3)/[facility] LABORATORY RBC 3.17 (L) 4.00 - [facility] x10(6)/[facility] LABORATORY Hemoglobin 8.4 (L) 11.7 - [facility] 15.5 g/dL [facility] Hematocrit 25.3 (L) 35.7 - [facility] 45.8 % [facility] MCV 79.8 (L) 82.6 - [facility]ORY MCH 26.5 (L) 27.1 - [facility] 32.0 pg [facility] MCHC 33.2 31.7 - [facility] 35.0 g/dL [facility] Platelets 154 145 - 357 [facility] x10(3)/[facility] LABORATORY RDWSD 51.0 (H) 37.0 - [facility] [address] [facility] LABORATORY RDWCV 17.4 (H) 11.5 - [facility] 14.1 % [facility] MPV 11.2 7.6 - 12.9 [facility] LABORATORY nRBC % Auto 0.0 % [facility] nRBC Abs Auto 0.000 0.000 - [facility] 0.000 [facility] x10(3)/[facility] LABORATORY Specimen Anatomical Collection Method Collection Time Receive d Time (Source) Location / / Volume Laterality Blood 10/05/2021 1:00 AM 2 1:12 EDT AM EDT Resulting Agency Comment Spec In Lab Fili Woodward MD HEMATOLOGY ORDERABLES Performing Organization Address City/State/[place] [address] (ABNORMAL) Basic Metabolic Panel (non-fasting) (10/05/2021 1:00 AM EDT) P athologist Signature Glucose Lvl 108 65 - 199 [facility] mg/dL [facility] Comment: Diabetes: >=200 mg/dL plus symp toms BUN 39 (H) 8 - 18 mg/dL [facility] Creatinine 2.54 (H) 0.70 - 1.20 mg/dL [facility] Sodium 130 (L) 135 - 145 mmol/L [facility] Potassium 4.1 3.5 - 5.0 mmol/L [facility] Comment: Please note: ??Patients with WBC >100,00 0 may have falsely elevated Potassium levels. ??For accurate Potassium quantif ication in these patients send serum separator tube (gold top) for subsequent determinations. ??Contact the Clinical Chemistry Laboratory if there are any qu estions. Chloride 95 (L) 98 - 107 mmol/L [facility] CO2 25 22 - 31 mmol/L [facility] Anion Gap 10 5 - 15 mmol/L [facility] Calcium 7.8 (L) 8.5 - 10.5 mg/dL [facility] Estimated GFR 18 (L) >=60 mL/min/1.73 m?? [facility] Comment: This patient? s estimated glomerular filtration rate (eGFR) is between 18 mL/min/1.73 m2 (patients with less muscl e mass) and 21 mL/min/1.73 m2 (patients with more muscle mass) as determined by the CKD-EPI equation. Assessment of eGFR is not appropriate when creatinine concentrations are rapidly changing. For clinical decisions where creatinine clearance will affect therapy, a 24-hour urine creatinine clearance may b e advised. Assignment of CKD stage 1 - 5 for patien ts with an eGFR near the transition point between stages may be based on cli nical assessment of muscle mass and symptoms in addition to eGFR. Specimen Anatomical Collection Method Collection Time Receive d Time (Source) Location / / Volume Laterality Blood 10/05/2021 1:00 AM 2 1:12 EDT AM EDT Resulting Agency Comment Spec In Lab Greyson Silverman MD CHEMISTRY ORDERABLES Performing Organization Address City/[facility]/[place] [address] Urinalysis Microscopic Exam (10/04/2021 6:10 PM EDT) P athologist Signature RBC UA 2 0 - 4 /HPF [facility] WBC UA 5 0 - 5 /HPF [facility] Squam Epith UA 2 <=4 /HPF [facility] Hyaline Cast 2 0 - 2 /LPF [facility] Specimen Anatomical Collection Method Collection Time Receive d Time (Source) Location / / Volume Laterality Clean Catch 10/04/2021 6:10 PM 2 7:24 Urine EDT PM EDT Resulting Agency Comment Spec In Lab Arabella Walden MD URINE ORDERABLES Performing Organization Address City/[facility]/[place]IP [place] [address] (ABNORMAL) Urinalysis with reflex Culture (10/04/2021 6:10 PM EDT) Patholo gist Method Time Signature Glucose UA Negative Negative [facility] mg/dL [facility] Protein UA 100 (A) Negative [facility] mg/dL [facility] Bilirubin UA Negative Negative [facility] mg/dL [facility] Comment: Clinical correlation required for positi ve Urine Bilirubin results as false positive may occur with some drugs and d rug related products. If a false positive is suspected a serum total bili blandon should be considered if clinically indicated. Urobilinogen UA Normal Normal mg/dL [facility] pH UA 7.0 5.0 - 8.0 [facility] Blood UA Trace (A) Negative mg/dL [facility] Ketones UA Negative Negative mg/dL [facility] Nitrite UA Negative Negative [facility] Leukocytes UA Trace (A) Negative [facility] LAB[facility]ORY Appearance UA Clear Clear [facility] Spec [place] UA 1.014 1.005 - 1.030 [facility] Color UA Yellow Yellow [facility] Culture Reflexed No [facility] Specimen Anatomical Collection Method Collection Time Receive d Time (Source) Location / / Volume Laterality Clean Catch 10/04/2021 6:10 PM 7:24 Urine EDT PM EDT Resulting Agency Comment Spec In Lab Greyson Silverman MD URINE ORDERABLES Performing Organization Address City/State/[place] [address] Chest Abdomen Pelvis wo Contrast (10/04/2021 7:47 AM EDT) Anatomical Region Laterality Modality Abdomen, Pelvis Computed Tomography Specimen (Source) Anatomical Collection Method Collection Time Re ceived Time Location / / Volume Laterality 10/04/2021 8:04 AM EDT Impressions 10/04/2021 8:13 AM EDT 1. 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 2. ??Small amount of nondependent air wi thin the little traverse sac. Thank you for letting us participate in the care of this patient. ??If you are a health care provider and have any questi ons regarding this report, please contact the number below. ??For patients who have questions please contact the health intensive care specialist that requested your imaging first. ? Narrative 10/04/2021 8:13 AM EDT EXAMINATION: CT CHEST ABDOMEN PELVIS WO CONTRAST CLINICAL HISTORY: Aortic infection or in flammation Rising WBC after physician modified endo graft, ?infection, ?visceral stent positioning. Please perform thin cuts, n on-contrast imaging. TECHNIQUE: Helical CT of the chest, abdo men and pelvis was performed without intravenous contrast. Oral contrast was not administered. COMPARISON: June 04, 2021 FINDINGS: The absence of intravenous contrast limi ts the evaluation of solid viscera and vasculature. Chest: Lungs and large airways: Septal thickeni ng suggestive of some degree of interstitial edema. Dependent atelectasi s at the bases. Pleura: No effusion. Heart/vasculature: Atheromatous thoracic aorta demonstrates mildly undulating contour without aneurysmal dilatation. S cattered coronary calcifications noted. Lymph nodes: No enlarged lymph nodes. Mediastinum and alejandra: Normal. Abdomen/pelvis: Liver: Normal size and attenuation witho ut lesions. Bile ducts: Nondilated. Gallbladder: Hydropic appearing, 6 cm in diameter with dependent sludge and calcifications. No gallbladder wall thic kening or pericholecystic fluid. Pancreas: Normal attenuation without doug praksah dilatation. Spleen: Normal. Adrenals: Normal. Kidneys: An unchanged simple parenchymal interpolar cyst, 16 mm in diameter. No suspicious masses or hydronephrosis. Urinary Bladder: Distended and unremarka ble. Vasculature: Interval placement of an ao rtobiiliac endograft extending from the distal thoracic aorta proximally, and a celiac artery stent. Nondependent air is present in the little traverse sac, which measure s 6.2 cm compared to 5.9 cm previously. Lymph Nodes: Persistent mild prominence of periaortic lymph nodes, which are not pathologically enlarged. Bowel: No abnormal small bowel dilatatio n or air-fluid levels. Colon is distended with stool and air. There is a normal appendix. Peritoneum and mesentery: No ascites, fr ee air, or loculated fluid collection. No mesenteric inflammation. Abdominal wall: Intact. Reproductive organs: Absent uterus. No a dnexal masses. Osseous structures: Mild multilevel dege nerative spondylosis changes. No suspicious lytic or sclerotic lesions. Procedure Note Dylan Grey MD - 10/04/2021For matting of this note might be different from the original. EXAMINATION: CT CHEST ABDOMEN PELVIS WO CONTRAST CLINICAL HISTORY: Aortic infection or in flammation Rising WBC after physician modified endo graft, ?infection, ?visceral stent positioning. Please perform thin cuts, n on-contrast imaging. TECHNIQUE: Helical CT of the chest, abdo men and pelvis was performed without intravenous contrast. Oral contrast was not administered. COMPARISON: June 04, 2021 FINDINGS: The absence of intravenous contrast limi ts the evaluation of solid viscera and vasculature. Chest: Lungs and large airways: Septal thickeni ng suggestive of some degree of interstitial edema. Dependent atelectasi s at the bases. Pleura: No effusion. Heart/vasculature: Atheromatous thoracic aorta demonstrates mildly undulating contour without aneurysmal dilatation. S cattered coronary calcifications noted. Lymph nodes: No enlarged lymph nodes. Mediastinum and alejandra: Normal. Abdomen/pelvis: Liver: Normal size and attenuation witho ut lesions. Bile ducts: Nondilated. Gallbladder: Hydropic appearing, 6 cm in diameter with dependent sludge and calcifications. No gallbladder wall thic kening or pericholecystic fluid. Pancreas: Normal attenuation without doug prakash dilatation. Spleen: Normal. Adrenals: Normal. Kidneys: An unchanged simple parenchymal interpolar cyst, 16 mm in diameter. No suspicious masses or hydronephrosis. Urinary Bladder: Distended and unremarka ble. Vasculature: Interval placement of an ao rtobiiliac endograft extending from the distal thoracic aorta proximally, and a celiac artery stent. Nondependent air is present in the little traverse sac, which measure s 6.2 cm compared to 5.9 cm previously. Lymph Nodes: Persistent mild prominence of periaortic lymph nodes, which are not pathologically enlarged. Bowel: No abnormal small bowel dilatatio n or air-fluid levels. Colon is distended with stool and air. There is a normal appendix. Peritoneum and mesentery: No ascites, fr ee air, or loculated fluid collection. No mesenteric inflammation. Abdominal wall: Intact. Reproductive organs: Absent uterus. No a dnexal masses. Osseous structures: Mild multilevel dege nerative spondylosis changes. No suspicious lytic or sclerotic lesions. IMPRESSION 1. Interval aortobiiliac endograft and s light artery stenting. 2. Small amount of nondependent air with in the little traverse sac. Thank you for letting us participate in the care of this patient. If you are a health care provider and have any questi ons regarding this report, please contact the number below. For patients w ho have questions please contact the health intensive care specialist that requested your imaging first. Greyson Silverman MD IMG CT ORDERABLES Scan, Peripheral Blood (10/04/2021 1:20 AM EDT) [facility] Method Time Signature Plat Estimate Normal [facility] RBC Morphology Abnormal [facility] Ovalocytes 1-5 /HPF [facility] Vacuolated Neut Present [facility] Specimen Anatomical Collection Method Collection Time Receive d Time (Source) Location / / Volume Laterality Blood 10/04/2021 1:20 AM 2 1:30 EDT AM EDT Resulting Agency Comment Spec In Lab Fili Woodward MD HEMATOLOGY ORDERABLES Performing Organization Address City/State/[place] [address] (ABNORMAL) Differential, Automated (10/04/2021 1:20 AM EDT) [facility] Method Time Signature Neutrophils % 82.3 % [facility] Neutr Abs (ANC) 22.06 (H) 1.70 - [facility] 6.10 [facility] x10(3)/[facility] LABORATORY Lymphocytes % 4.5 % [facility] Lymphocytes Abs 1.2 0.9 - 3.2 [facility] x10(3)/[place] LABORATORY Monocytes % 10.1 % [facility] Monocyte Abs 2.7 (H) 0.3 - 0.9 [facility] x10(3)/[place] LABORATORY Eosinophils % 1.0 % [facility] Eosinophils Abs 0.3 0.0 - 0.4 [facility] x10(3)/[place] LABORATORY Basophils % 0.3 % [facility] Basophils Abs 0.1 0.0 - 0.1 [facility] x10(3)/[place] LABORATORY Immature Gran % 1.80 % [facility] Comment: Immature granulocytes(IG's)percentage an d absolute count will include metamyelocytes, myelocytes, and promyelo cytes. Blood smears from CBCs yielding IG's will be scanned manually for concor dance. If this scan disagrees with the automated IG or if promyelocytes are not ed, a manual differential will be performed. Blanca Gran Abs 0.49 (H) 0.00 - 0.04 x10(3)/[facility] LABORATORY Specimen Anatomical Collection Method Collection Time Receive d Time (Source) Location / / Volume Laterality Blood 10/04/2021 1:20 AM 1:30 EDT AM EDT Resulting Agency Comment Spec In Lab Fili Woodward MD HEMATOLOGY ORDERABLES Performing Organization Address City/State/ZIP Code Phon e Number [place] [id number] (ABNORMAL) Hemogram (10/04/2021 1:20 AM EDT) Analysis Performed At Patho logist Time Signature WBC 26.8 (H) 4.0 - 9.5 [facility] x10(3)/[facility] LABORATORY RBC 3.90 (L) 4.00 - [facility] 5.21 [facility] x10(6)/[facility] LABORATORY Hemoglobin 10.2 (L) 11.7 - [facility] 15.5 g/dL [facility] Hematocrit 31.6 (L) 35.7 - [facility] 45.8 % [facility] MCV 81.0 (L) 82.6 - [facility] LABORATORY MCH 26.2 (L) 27.1 - [facility] 32.0 pg [facility] MCHC 32.3 31.7 - [facility] 35.0 g/dL [facility] Platelets 153 145 - 357 [facility] x10(3)/[place] RDWSD 51.4 (H) 37.0 - [facility] [address] [facility] LABORATORY RDWCV 17.4 (H) 11.5 - [facility] 14.1 % [facility] MPV 11.3 7.6 - 12.[address] [facility] LABORATORY nRBC % Auto 0.0 % [facility] nRBC Abs Auto 0.000 0.000 - [facility] 0.000 [facility] x10(3)/[facility] LABORATORY Specimen Anatomical Collection Method Collection Time Receive d Time (Source) Location / / Volume Laterality Blood 10/04/2021 1:20 AM 1:30 EDT AM EDT Resulting Agency Comment Spec In Lab Fili Woodward MD HEMATOLOGY ORDERABLES Performing Organization Address City/State/[place] [address] COVID-19 PCR (10/04/2021 1:20 AM EDT) [facility] Method Time Signature SARS-CoV-2 Not Detected Not Detected [facility] RNA [facility] Comment: This result should be interpreted in com bination with the clinical observations, patient history and epidem iological information in making a final diagnosis. For testing of asymptomatic i ndividuals, assay performance characteristics and clinical utility hav e not been evaluated. Testing for SARS-CoV-2 (Severe acute respiratory syn drome coronavirus 2, formerly known as 2019 novel coronavirus or 2019-nCoV) to aid in the diagnosis of COVID-19 is performed using the [employer] JAYESH S-CoV-2 Assay as authorized by the FDA Emergency Use Authorization (EUA). This EUA assay is intended for In-vitro Diagnostic (IVD) use with respiratory sp ecimens such as nasopharyngeal swabs collected from individuals during the ac graciela phase of infection. This assay is performed based on the instructions for use provided by [employer] and additional guidance provided by CDC and FDA. Testing is performed in the [facility] Laboratory within the Department of Pathology and Laboratory Medicine at [facility], certified under the Clinical Laboratory Improvement Amendments of 1988 (CLIA), 42 U.S.C. 263a, to perform high complexi ty tests. Assay performance has been verified according to clinical laborator y regulatory requirements for use with specimens collected from individuals anusha pected of COVID-19. Test results are provided above. A result of Not Detecte d indicates that the viral RNA target is not present above the limit of detect ion, but does not preclude SARS-CoV-2 infection. False negative results may oc cur if a specimen is improperly collected, transported or handled; if am plification inhibitors are present; or if inadequate numbers of viral particles are present in the specimen. When a diagnostic test is negative, the possibi lity of a false negative result should be considered in the context of a patien t's recent exposures and the presence of clinical signs and symptoms consisten t with COVID-19. A result of Detected indicates that RNA from SARS-CoV-2 was d etected and the patient is infected. As required or requested by [facility], positive specimens may be sent for additional testing. Positive an d negative predictive values for this test are highly dependent on disease pre valence. A result of Invalid indicates that neither the viral RNA tar gets nor the internal control target was detected. An invalid result suggests the presence of inhibitors. Recollection and re-testing is recommend ed in the case of an invalid result. CDC COVID-19 criteria for testing on hum an specimens and clinical management guidance information are available at [facility] CDC Coronavirus Disease 2019 (COVID-19) webpage under Information fo r Healthcare Professionals (https://www.cdc.gov/coronavirus/2019-nc ov/hcp/index.html) Additional information about this and ot her EUA tests can be found in provider and patient fact sheets at the following FDA website: https://www.fda.gov/medical-devices/hyzlnthczqy-owdgika-0524-tyzcq-69-lmuahrdqj- bfi-tqribpoqiebvkj-rxreayh-devices/hurcu-eqmagyogndc-rtmk SARS-Cov-2 RNA Source CHEMICAL DEPENDENCY COUNSELOR Swab [facility] Specimen (Source) Anatomical Collection Method Collection Time Re ceived Time Location / / Volume Laterality Nasopharyngeal Swab 10/04/2021 1:20 10/04 AM EDT 8:46 AM EDT Comment: Symptoms->Surveillance Resulting Agency Comment Spec In Lab Greyson Silverman MD MICROBIOLOGY - GENERAL ORDER AYAD Performing Organization Address City/State/[place] [address] (ABNORMAL) Basic Metabolic Panel (non-fasting) (10/04/2021 1:20 AM EDT) P athologist Signature Glucose Lvl 90 65 - 199 [facility] mg/dL [facility] Comment: Diabetes: >=200 mg/dL plus symp toms BUN 34 (H) 8 - 18 mg/dL [facility] Creatinine 2.47 (H) 0.70 - 1.20 mg/dL [facility] Sodium 131 (L) 135 - 145 mmol/L [facility] Potassium 3.7 3.5 - 5.0 mmol/L [facility] Comment: Please note: ??Patients with WBC >100,00 0 may have falsely elevated Potassium levels. ??For accurate Potassium quantif ication in these patients send serum separator tube (gold top) for subsequent determinations. ??Contact the Clinical Chemistry Laboratory if there are any qu estions. Chloride 95 (L) 98 - 107 mmol/L [facility] CO2 22 22 - 31 mmol/L [facility] Anion Gap 14 5 - 15 mmol/L [facility] Calcium 8.3 (L) 8.5 - 10.5 mg/dL [facility] Estimated GFR 19 (L) >=60 mL/min/1.73 m?? [facility] Comment: This patient? s estimated glomerular filtration rate (eGFR) is between 19 mL/min/1.73 m2 (patients with less muscl e mass) and 22 mL/min/1.73 m2 (patients with more muscle mass) as determined by the CKD-EPI equation. Assessment of eGFR is not appropriate when creatinine concentrations are rapidly changing. For clinical decisions where creatinine clearance will affect therapy, a 24-hour urine creatinine clearance may b e advised. Assignment of CKD stage 1 - 5 for patien ts with an eGFR near the transition point between stages may be based on cli nical assessment of muscle mass and symptoms in addition to eGFR. Specimen Anatomical Collection Method Collection Time Receive d Time (Source) Location / / Volume Laterality Blood 10/04/2021 1:20 AM 2 1:30 EDT AM EDT Resulting Agency Comment Spec In Lab Greyson Silverman MD CHEMISTRY ORDERABLES Performing Organization Address City/State/ZIP Code Phon e Number [address] Green Tube HOLD (10/03/2021 8:00 PM EDT) P athologist Signature Green Hold Sample in [facility]. [facility] Specimen Anatomical Collection Method Collection Time Receive d Time (Source) Location / / Volume Laterality Blood No Charge / 10/03/2021 8:00 PM 8:04 Unknown EDT PM EDT Candy Hernandez APRN CHEMISTRY ORDERABLES Performing Organization Address City/[facility]/ZIP Code Phon e Number [address] FLEXIBLE SIGMOIDOSCOPY (10/03/2021 2:25 PM EDT) Component Value Ref Test Analysis Performed At Patholo gist Range Method Time Signature FLEXIBLE [facility] SIGMOIDOSCOPY Endoscopy Procedure Date: 10/03/2021 2:25 PM ? Patient Name: Pretty Harmon ? N: [id number] ? Date of : 1950 ? Age: 70 ? Order #: [id number] ? Instrument Name: [id number] ? Procedure: ? Flexible Sigmoidoscopy Indications: ? Suspected acute ischemic colitis Providers: ? Silver Rossi MD, Shahbaz Sneed ? Lianna Moses, Alexandria flores ? Haroldo Paige Referring : ?Sanjuanita Mejia, ? MD Complications: ? No immediate complications. Procedure: ? The procedure, indications, ? benefits, risks and altern atives ? were explained to the jennifer ent. ? Specifically discussed wer e ? potential complications in cluding, ? but not limited to, aaron sanchez, ? perforation, infection, mi ssing a ? cancer, and adverse medica tion ? reactions. The patient was placed ? in the left lateral decubi tus ? position, and a digital re ctal exam ? was performed. The Endosco pe was ? inserted in the anus and u nder ? direct visualization, adva nced to ? the descending colon. Care ful ? inspection was made as the scope ? was withdrawn. The flexibl e ? sigmoidoscopy was performe d with ? moderate difficulty due to ? inadequate bowel prep and ? significant looping. The p atient ? tolerated the procedure we ll. The ? quality of the bowel prepa ration ? was inadequate overall, bu t allowed ? us to see the rectum, sigm oid and ? descending colon adequatel y. ? Findings: ? The perianal and digital rectal examinations were ? normal. ? The rectum, sigmoid and descending colon were normal, ? without any signs of bowel ischemia or other ? abnormalities We reached approximately the spelenic ? flexure where we encountered solid brown stool. ? Moderate Sedation: ? Not applicable - See Anesthesia documentation Impression: ?- Normal visualized bowel mucos a ? from the splenic flexure t o the ? rectum. No signs of ischem ia or ? other abnormalities. ? - No specimens collected. Recommendation: ?- Return to ICU for further care. ? Attending Participation: ? I was present and participated during the entire ? procedure, including non-burgess portions. ? Silver Rossi MD 10/03/2021 3:27:12 PM Number of Addenda: 0 Note Initiated On: 10/03/2021 2:25 PM Specimen (Source) Anatomical Collection Method Collection Time Re ceived Time Location / / Volume Laterality 10/03/2021 2:25 PM EDT Greyson Silverman MD GENERAL SURGICAL ORDERABLES Performing Organization Address City/State/ZIP Code Phon e Number [place] (ABNORMAL) Electrolytes panel (10/03/2021 2:15 PM EDT) athologist Signature Sodium 131 (L) 135 - 145 [facility] mmol/L [facility] Potassium 3.9 3.5 - 5.0 [facility] mmol/L [facility] Comment: Please note: ??Patients with WBC >100,00 0 may have falsely elevated Potassium levels. ??For accurate Potassium quantif ication in these patients send serum separator tube (gold top) for subsequent determinations. ??Contact the Clinical Chemistry Laboratory if there are any qu estions. Chloride 95 (L) 98 - 107 mmol/L [facility] CO2 24 22 - 31 mmol/L [facility] Anion Gap 12 5 - 15 mmol/L [facility] Specimen Anatomical Collection Method Collection Time Receive d Time (Source) Location / / Volume Laterality Blood 10/03/2021 2:15 PM 2 2:17 EDT PM EDT Resulting Agency Comment Spec In Lab Candy Hernandez FIELD SERVICE ANALYST CHEMISTRY ORDERABLES Performing Organization Address City/State/ZIP Code Leydi e Dwain KOEHLER [place] [phone] XR Abdomen Flat & Upright (10/03/2021 11:00 AM EDT) Anatomical Region Laterality Modality Abdomen N/A Digital Radiography Specimen (Source) Anatomical Location Collection Method / Collectio n Time Received Time / Laterality Volume Impressions 10/03/2021 1:34 PM EDT No free intra-abdominal air. Nonobstructive bowel gas pattern. Thank you for letting us participate in the care of this patient. ??If you are a health care provider and have any questi ons regarding this report, please contact the number below. ??For patients who have questions please contact the health intensive care specialist that requested your imaging first. ? Narrative 10/03/2021 1:34 PM EDT EXAMINATION: XR ABDOMEN FLAT AND UPRIGHT CLINICAL HISTORY: s/p TEVAR with [facility], looking for free air TECHNIQUE: Supine and upright abdominal views COMPARISON: CT abdomen pelvis 06/04/2021 FINDINGS: Minimal streaky opacities in the lung ba ses. No free intra-abdominal air. Aortobiiliac stent graft present. Air fills normal caliber loops of small bowel in the midabdomen and throughout the large bowel to the level of the dist al descending colon. A cholecystectomy clip is present in the right upper quadrant. Procedure Note Bruce Martin MD - 10/03/2021Formattin g of this note might be different from the original. EXAMINATION: XR ABDOMEN FLAT AND UPRIGHT CLINICAL HISTORY: s/p TEVAR with [facility], looking for free air TECHNIQUE: Supine and upright abdominal views COMPARISON: CT abdomen pelvis 06/04/2021 FINDINGS: Minimal streaky opacities in the lung ba ses. No free intra-abdominal air. Aortobiiliac stent graft present. Air fills normal caliber loops of small bowel in the midabdomen and throughout the large bowel to the level of the dist al descending colon. A cholecystectomy clip is present in the right upper quadrant. IMPRESSION No free intra-abdominal air. Nonobstruct myra bowel gas pattern. Thank you for letting us participate in the care of this patient. If you are a health care provider and have any questi ons regarding this report, please contact the number below. For patients w ho have questions please contact the health intensive care specialist that requested your imaging first. Candy Hernandez APRN IMG DX ORDERABLES (ABNORMAL) Differential, Automated (10/03/2021 9:05 AM EDT) [facility] gist Method Time Signature Neutrophils % 82.1 % [facility] Neutr Abs (ANC) 19.89 (H) 1.70 - [facility] 6.10 [facility] x10(3)/[facility] LABORATORY Lymphocytes % 4.3 % [facility] Lymphocytes Abs 1.0 0.9 - 3.2 [facility] x10(3)/[place] LABORATORY Monocytes % 11.1 % [facility] Monocyte Abs 2.7 (H) 0.3 - 0.9 [facility] x10(3)/[place] LABORATORY Eosinophils % 1.0 % [facility] Eosinophils Abs 0.2 0.0 - 0.4 [facility] x10(3)/[place] LABORATORY Basophils % 0.2 % [facility] Basophils Abs 0.1 0.0 - 0.1 [facility] x10(3)/[place] LABORATORY Immature Gran % 1.30 % [facility] Comment: Immature granulocytes(IG's)percentage an d absolute count will include metamyelocytes, myelocytes, and promyelo cytes. Blood smears from CBCs yielding IG's will be scanned manually for concor dance. If this scan disagrees with the automated IG or if promyelocytes are not ed, a manual differential will be performed. Blanca Gran Abs 0.32 (H) 0.00 - 0.04 x10(3)/[facility] LABORATORY Specimen Anatomical Collection Method Collection Time Receive d Time (Source) Location / / Volume Laterality Blood 10/03/2021 9:05 AM 9:18 EDT AM EDT Resulting Agency Comment Spec In Lab Candy Hernandez APRN HEMATOLOGY ORDERABLES Performing Organization Address City/State/[place] [address] (ABNORMAL) Hemogram (10/03/2021 9:05 AM EDT) Analysis Performed At Patho logist Time Signature WBC 24.2 (H) 4.0 - 9.5 [facility] x10(3)/[facility] LABORATORY RBC 4.38 4.00 - [facility] 5.21 [facility] x10(6)/[facility] LABORATORY Hemoglobin 11.7 11.7 - [facility] 15.[facility] g/dL [facility] Hematocrit 35.3 (L) 35.7 - [facility] 45.8 % [facility] MCV 80.6 (L) 82.6 - [facility] [address] [facility] LABORATORY MCH 26.7 (L) 27.1 - [facility] 32.0 pg [facility] MCHC 33.1 31.7 - [facility] 35.0 g/dL [facility] Platelets 142 (L) 145 - 357 [facility] x10(3)/[facility] LABORATORY RDWSD 50.4 (H) 37.0 - [facility] [address] [facility] LABORATORY RDWCV 17.2 (H) 11.5 - [facility] 14.1 % [facility] MPV 11.3 7.6 - 12.9 [facility] LABORATORY nRBC % Auto 0.0 % [facility] nRBC Abs Auto 0.000 0.000 - [facility] 0.000 [facility] x10(3)/[facility] LABORATORY Specimen Anatomical Collection Method Collection Time Receive d Time (Source) Location / / Volume Laterality Blood 10/03/2021 9:05 AM 9:18 EDT AM EDT Resulting Agency Comment Spec In Lab Candy Redd Chapoles [facility] HEMATOLOGY ORDERABLES Performing Organization Address City/State/[place] [address] (ABNORMAL) Basic Metabolic Panel (non-fasting) (10/03/2021 9:05 AM EDT) athologist Signature Glucose Lvl 110 65 - 199 [facility] mg/dL [facility] Comment: Diabetes: >=200 mg/dL plus symp toms BUN 33 (H) 8 - 18 mg/dL [facility] Creatinine 2.41 (H) 0.70 - 1.20 mg/dL [facility] Sodium 128 (L) 135 - 145 mmol/L [facility] Potassium Not Perf 3.5 - 5.0 [facility] Comment: Unable to quantitate due to sample hemol ysis. ??Sample redraw suggested. Called by: juan diego, Read back by: Eliza Casey, David e/Time:10/03/21 10:01. Please note: ??Patients with WBC >100,00 0 may have falsely elevated Potassium levels. ??For accurate Potassium quantif ication in these patients send serum separator tube (gold top) for subsequent determinations. ??Contact the Clinical Chemistry Laboratory if there are any qu estions. Chloride 92 (L) 98 - 107 mmol/L [facility] CO2 23 22 - 31 mmol/L [facility] Anion Gap 13 5 - 15 mmol/L [facility] Calcium 8.4 (L) 8.5 - 10.5 mg/dL [facility] Estimated GFR 19 (L) >=60 mL/min/1.73 m?? [facility] Comment: This patient? s estimated glomerular filtration rate (eGFR) is between 19 mL/min/1.73 m2 (patients with less muscl e mass) and 23 mL/min/1.73 m2 (patients with more muscle mass) as determined by the CKD-EPI equation. Assessment of eGFR is not appropriate when creatinine concentrations are rapidly changing. For clinical decisions where creatinine clearance will affect therapy, a 24-hour urine creatinine clearance may b e advised. Assignment of CKD stage 1 - 5 for patien ts with an eGFR near the transition point between stages may be based on cli nical assessment of muscle mass and symptoms in addition to eGFR. Specimen Anatomical Collection Method Collection Time Receive d Time (Source) Location / / Volume Laterality Blood 10/03/2021 9:05 AM 2 9:18 EDT AM EDT Resulting Agency Comment Spec In Lab Candy Hernandez APRN CHEMISTRY ORDERABLES Performing Organization Address City/[facility]/[place] [address] Lactate, whole blood, send to lab ([facility] (10/03/2021 9:05 AM EDT) P athologist Signature Lactate WB 1.5 0.5 - 2.2 [facility] mmol/L [facility] Specimen Anatomical Collection Method Collection Time Receive d Time (Source) Location / / Volume Laterality Blood 10/03/2021 9:05 AM 2 9:17 EDT AM EDT Resulting Agency Comment Spec In Lab Candy Hernandez APRN CHEMISTRY ORDERABLES Performing Organization Address City/State/[place] [address] (ABNORMAL) Hepatic Function Panel (10/03/2021 1:15 AM EDT) P athologist Signature Total Protein 6.6 6.1 - 8.0 [facility] g/dL [facility] Albumin 3.9 3.2 - 5.2 [facility] AST 58 (H) 0 - 30 [facility] unit/L [facility] ALT 27 0 - 30 [facility]/L [facility] Alk Phos 75 35 - 105 [facility] unit/L [facility] Total 0.4 0.2 - 1.3 [facility] Bilirubin mg/dL [facility] Bili, Direct 0.1 0.0 - 0.3 [facility] mg/dL [facility] Specimen Anatomical Collection Method Collection Time Receive d Time (Source) Location / / Volume Laterality Blood Venous Draw / 10/03/2021 1:15 AM 10/04/19 22 1:26 Unknown EDT AM EDT Resulting Agency Comment Spec In Lab Candy Hernandez APRN CHEMISTRY ORDERABLES Performing Organization Address City/[facility]/ZIP Code Phon e Number [address] Scan, Peripheral Blood (10/03/2021 1:15 AM EDT) [facility] [employer] Method Time Signature Plat Estimate Normal [facility] RBC Morphology Abnormal [facility] Microcytes 1-5 /HPF [facility] Hypochromia Slight [facility] Ovalocytes 1-5 /HPF [facility] Miguel Cells 1-5 /HPF [facility] Specimen Anatomical Collection Method Collection Time Receive d Time (Source) Location / / Volume Laterality Blood 10/03/2021 1:15 AM 2 1:24 EDT AM EDT Resulting Agency Comment Spec In Lab Stephanie Cevallos MD HEMATOLOGY ORDERABLES Performing Organization Address City/State/[place] [address] (ABNORMAL) Differential, Automated (10/03/2021 1:15 AM EDT) [facility] [employer] Method Time Signature Neutrophils % 82.8 % [facility] Neutr Abs (ANC) 19.29 (H) 1.70 - [facility] 6.10 [facility] x10(3)/[facility] L LABORATORY Lymphocytes % 4.5 % [facility] Lymphocytes Abs 1.0 0.9 - 3.2 [facility] x10(3)/[place] LABORATORY Monocytes % 11.2 % [facility] Monocyte Abs 2.6 (H) 0.3 - 0.9 [facility] x10(3)/[place] LABORATORY Eosinophils % 0.6 % [facility] Eosinophils Abs 0.1 0.0 - 0.4 [facility] x10(3)/[place] LABORATORY Basophils % 0.3 % [facility] Basophils Abs 0.1 0.0 - 0.1 [facility] x10(3)/[place] LABORATORY Immature Gran % 0.60 % [facility] Comment: Immature granulocytes(IG's)percentage an d absolute count will include metamyelocytes, myelocytes, and promyelo cytes. Blood smears from CBCs yielding IG's will be scanned manually for concor dance. If this scan disagrees with the automated IG or if promyelocytes are not ed, a manual differential will be performed. Blanca Gran Abs 0.13 (H) 0.00 - 0.04 x10(3)/[facility] LABORATORY Specimen Anatomical Collection Method Collection Time Receive d Time (Source) Location / / Volume Laterality Blood 10/03/2021 1:15 AM 1:24 EDT AM EDT Resulting Agency Comment Spec In Lab Stephanie Cevallos MD HEMATOLOGY ORDERABLES Performing Organization Address City/State/[place] [address] (ABNORMAL) Hemogram (10/03/2021 1:15 AM EDT) Analysis Performed At Patho logist Time Signature WBC 23.3 (H) 4.0 - 9.5 [facility] x10(3)/[facility] LABORATORY RBC 4.22 4.00 - [facility] 5.21 [facility] x10(6)/[facility] LABORATORY Hemoglobin 11.2 (L) 11.7 - [facility] 15.5 g/dL [facility] Hematocrit 33.9 (L) 35.7 - [facility] 45.8 % [facility] MCV 80.3 (L) 82.6 - [facility] [address] [facility] LABORATORY MCH 26.5 (L) 27.1 - [facility] 32.0 pg [facility] MCHC 33.0 31.7 - [facility] 35.0 g/dL [facility] Platelets 159 145 - 357 [facility] x10(3)/[facility] LABORATORY RDWSD 50.6 (H) 37.0 - [facility] [place] [address] [facility] LABORATORY RDWCV 17.3 (H) 11.5 - [facility] [place] 14.1 % [facility] MPV 10.4 7.6 - 12.[address] [facility] LABORATORY nRBC % Auto 0.0 % [facility] nRBC Abs Auto 0.000 0.000 - [facility] 0.000 [facility] x10(3)/[facility] LABORATORY Specimen Anatomical Collection Method Collection Time Receive d Time (Source) Location / / Volume Laterality Blood 10/03/2021 1:15 AM 2 1:24 EDT AM EDT Resulting Agency Comment Spec In Lab Stephanie Cevallos MD HEMATOLOGY ORDERABLES Performing Organization Address City/State/[place] [address] Phosphorus (10/03/2021 1:15 AM EDT) P athologist Signature Phosphorus 3.6 2.5 - 4.5 [facility] mg/dL [facility] Specimen Anatomical Collection Method Collection Time Receive d Time (Source) Location / / Volume Laterality Blood 10/03/2021 1:15 AM 2 1:24 EDT AM EDT Resulting Agency Comment Spec In Lab Greyson Silverman MD CHEMISTRY ORDERABLES Performing Organization Address City/[facility]/ZIP Code Phon e Number [address] (ABNORMAL) Magnesium (10/03/2021 1:15 AM EDT) P athologist Signature Magnesium 1.23 (H) 0.69 - 1.07 [facility] mmol/L [facility] Comment: result rechecked-sf Specimen Anatomical Collection Method Collection Time Receive d Time (Source) Location / / Volume Laterality Blood 10/03/2021 1:15 AM 2 1:24 EDT AM EDT Resulting Agency Comment Spec In Lab Greyson Silverman MD CHEMISTRY ORDERABLES Performing Organization Address City/State/[place] [address] (ABNORMAL) Basic Metabolic Panel (non-fasting) (10/03/2021 1:15 AM EDT) athologist Signature Glucose Lvl 124 65 - 199 [facility] mg/dL [facility] Comment: Diabetes: >=200 mg/dL plus symp toms BUN 31 (H) 8 - 18 mg/dL [facility] Creatinine 2.37 (H) 0.70 - 1.20 mg/dL [facility] Sodium 130 (L) 135 - 145 mmol/L [facility] Potassium 4.0 3.5 - 5.0 mmol/L [facility] Comment: Please note: ??Patients with WBC >100,00 0 may have falsely elevated Potassium levels. ??For accurate Potassium quantif ication in these patients send serum separator tube (gold top) for subsequent determinations. ??Contact the Clinical Chemistry Laboratory if there are any qu estions. Chloride 92 (L) 98 - 107 mmol/L [facility] Comment: result rechecked-sf CO2 25 22 - 31 mmol/L [facility] Anion Gap 13 5 - 15 mmol/L [facility] Calcium 8.2 (L) 8.5 - 10.5 mg/dL [facility] Estimated GFR 20 (L) >=60 mL/min/1.73 m?? [facility] Comment: This patient? s estimated glomerular filtration rate (eGFR) is between 20 mL/min/1.73 m2 (patients with less muscl e mass) and 23 mL/min/1.73 m2 (patients with more muscle mass) as determined by the CKD-EPI equation. Assessment of eGFR is not appropriate when creatinine concentrations are rapidly changing. For clinical decisions where creatinine clearance will affect therapy, a 24-hour urine creatinine clearance may b e advised. Assignment of CKD stage 1 - 5 for patien ts with an eGFR near the transition point between stages may be based on cli nical assessment of muscle mass and symptoms in addition to eGFR. Specimen Anatomical Collection Method Collection Time Receive d Time (Source) Location / / Volume Laterality Blood 10/03/2021 1:15 AM 2 1:24 EDT AM EDT Resulting Agency Comment Spec In Lab Greyson Silverman MD CHEMISTRY ORDERABLES Performing Organization Address City/State/[place] [address] (ABNORMAL) Differential, Automated (10/02/2021 12:30 AM EDT) [facility] gist Method Time Signature Neutrophils % 87.3 % [facility] Neutr Abs (ANC) 11.58 (H) 1.70 - [facility] 6.10 [facility] x10(3)/[facility] L LABORATORY Lymphocytes % 4.6 % [facility] Lymphocytes Abs 0.6 (L) 0.9 - 3.2 [facility] x10(3)/[place] LABORATORY Monocytes % 7.4 % [facility] Monocyte Abs 1.0 (H) 0.3 - 0.9 [facility] x10(3)/[place] LABORATORY Eosinophils % 0.0 % [facility] Eosinophils Abs 0.0 0.0 - 0.4 [facility] x10(3)/[place] LABORATORY Basophils % 0.2 % [facility] Basophils Abs 0.0 0.0 - 0.1 [facility] x10(3)/[place] LABORATORY Immature Gran % 0.50 % [facility] Comment: Immature granulocytes(IG's)percentage an d absolute count will include metamyelocytes, myelocytes, and promyelo cytes. Blood smears from CBCs yielding IG's will be scanned manually for kevyn bowen. If this scan disagrees with the automated IG or if promyelocytes are not ed, a manual differential will be performed. Blanca Gran Abs 0.06 (H) 0.00 - 0.04 x10(3)/[facility] LABORATORY Specimen Anatomical Collection Method Collection Time Receive d Time (Source) Location / / Volume Laterality Blood 10/02/2021 12:30 10/02/2021 AM EDT 12:37 AM EDT Resulting Agency Comment Spec In Lab Greyson Chase APRN HEMATOLOGY ORDERABLES Performing Organization Address City/State/[place] [address] (ABNORMAL) Hemogram (10/02/2021 12:30 AM EDT) Analysis Performed At Patho logist Time Signature WBC 13.2 (H) 4.0 - 9.5 [facility] x10(3)/[facility] LABORATORY RBC 3.98 (L) 4.00 - [facility] 5.21 [facility] x10(6)/[facility] LABORATORY Hemoglobin 10.6 (L) 11.7 - [facility] 15.5 g/dL [facility] Hematocrit 31.8 (L) 35.7 - [facility] 45.8 % [facility] MCV 79.9 (L) 82.6 - [facility] [address] [facility] LABORATORY MCH 26.6 (L) 27.1 - [facility] 32.0 pg [facility] MCHC 33.3 31.7 - [facility] 35.0 g/dL [facility] Platelets 180 145 - 357 [facility] x10(3)/[facility] LABORATORY RDWSD 50.4 (H) 37.0 - [facility] [address] [facility] LABORATORY RDWCV 17.2 (H) 11.5 - [facility] 14.1 % [facility] MPV 10.2 7.6 - 12.9 [facility] LABORATORY nRBC % Auto 0.0 % [facility] nRBC Abs Auto 0.000 0.000 - [facility] tydy 0.000 [facility] x10(3)/[facility] LABORATORY Specimen Anatomical Collection Method Collection Time Receive d Time (Source) Location / / Volume Laterality Blood 10/02/2021 12:30 10/02/2021 AM EDT 12:37 AM EDT Resulting Agency Comment Spec In Lab Greyson Chase KYRA HEMATOLOGY ORDERABLES Performing Organization Address City/State/[place] [address] (ABNORMAL) Basic Metabolic Panel (non-fasting) (10/02/2021 12:30 AM EDT) athologist Signature Glucose Lvl 149 65 - 199 [facility] mg/dL [facility] Comment: Diabetes: >=200 mg/dL plus symp toms BUN 34 (H) 8 - 18 mg/dL [facility] LAB[facility]ORY Creatinine 2.14 (H) 0.70 - 1.20 mg/dL [facility] Sodium 136 135 - 145 mmol/L [facility] Potassium 4.0 3.5 - 5.0 mmol/L [facility] Comment: Please note: ??Patients with WBC >100,00 0 may have falsely elevated Potassium levels. ??For accurate Potassium quantif ication in these patients send serum separator tube (gold top) for subsequent determinations. ??Contact the Clinical Chemistry Laboratory if there are any qu estions. Chloride 102 98 - 107 mmol/L [facility] CO2 20 (L) 22 - 31 mmol/L [facility] Anion Gap 14 5 - 15 mmol/L [facility] Calcium 8.1 (L) 8.5 - 10.5 mg/dL [facility] Comment: result rechecked- Estimated GFR 22 (L) >=60 mL/min/1.73 m?? [facility] Comment: This patient? s estimated glomerular filtration rate (eGFR) is between 22 mL/min/1.73 m2 (patients with less muscl e mass) and 26 mL/min/1.73 m2 (patients with more muscle mass) as determined by the CKD-EPI equation. Assessment of eGFR is not appropriate when creatinine concentrations are rapidly changing. For clinical decisions where creatinine clearance will affect therapy, a 24-hour urine creatinine clearance may b e advised. Assignment of CKD stage 1 - 5 for patien ts with an eGFR near the transition point between stages may be based on cli nical assessment of muscle mass and symptoms in addition to eGFR. Specimen Anatomical Collection Method Collection Time Receive d Time (Source) Location / / Volume Laterality Blood 10/02/2021 12:30 10/02/2021 AM EDT 12:37 AM EDT Resulting Agency Comment Spec In Lab Greyson Chase FIELD SERVICE ANALYST CHEMISTRY ORDERABLES Performing Organization Address City/State/[place] [address] Phosphorus (10/02/2021 12:30 AM EDT) athologist Signature Phosphorus 4.1 2.5 - 4.5 [facility] mg/dL [facility] Specimen Anatomical Collection Method Collection Time Receive d Time (Source) Location / / Volume Laterality Blood 10/02/2021 12:30 10/02/2021 AM EDT 12:37 AM EDT Resulting Agency Comment Spec In Lab Greyson Chase FIELD SERVICE ANALYST CHEMISTRY ORDERABLES Performing Organization Address City/[facility]/ZIP Code Phon e Number [address] Magnesium (10/02/2021 12:30 AM EDT) athologist Signature Magnesium 0.77 0.69 - 1.07 [facility] mmol/L [facility] Specimen Anatomical Collection Method Collection Time Receive d Time (Source) Location / / Volume Laterality Blood 10/02/2021 12:30 10/02/2021 AM EDT 12:37 AM EDT Resulting Agency Comment Spec In Lab Greyson Chase FIELD SERVICE ANALYST CHEMISTRY ORDERABLES Performing Organization Address City/[facility]/ZIP [facility] Phon e Number [address] (ABNORMAL) Differential, Automated (10/01/2021 5:20 PM EDT) Patholo gist Method Time Signature Neutrophils % 90.8 % [facility] Neutr Abs (ANC) 11.10 (H) 1.70 - [facility] 6.10 [facility] x10(3)/[facility] L LABORATORY Lymphocytes % 3.8 % [facility] Lymphocytes Abs 0.5 (L) 0.9 - 3.2 [facility] x10(3)/[place] LABORATORY Monocytes % 4.7 % [facility] Monocyte Abs 0.6 0.3 - 0.9 [facility] x10(3)/[place] LABORATORY Eosinophils % 0.2 % [facility] Eosinophils Abs 0.0 0.0 - 0.4 [facility] x10(3)/[place] LABORATORY Basophils % 0.2 % [facility] Basophils Abs 0.0 0.0 - 0.1 [facility] x10(3)/[place] LABORATORY Immature Gran % 0.30 % [facility] Comment: Immature granulocytes(IG's)percentage an d absolute count will include metamyelocytes, myelocytes, and promyelo cytes. Blood smears from CBCs yielding IG's will be scanned manually for concor dance. If this scan disagrees with the automated IG or if promyelocytes are not ed, a manual differential will be performed. Blanca Gran Abs 0.04 0.00 - 0.04 x10(3)/[facility] LABORATORY Specimen Anatomical Collection Method Collection Time Receive d Time (Source) Location / / Volume Laterality Blood 10/01/2021 5:20 PM 5:25 EDT PM EDT Resulting Agency Comment Spec In Lab Greyson Chase APRN HEMATOLOGY ORDERABLES Performing Organization Address City/State/[place] [address] (ABNORMAL) Hemogram (10/01/2021 5:20 PM EDT) Analysis Performed At Patho logist Time Signature WBC 12.2 (H) 4.0 - 9.5 [facility] x10(3)/[facility] LABORATORY RBC 4.42 4.00 - [facility] 5.21 [facility] x10(6)/[facility] LABORATORY Hemoglobin 11.7 11.7 - [facility] 15.5 g/dL [facility] Hematocrit 35.8 35.7 - [facility] [place] 45.8 % [facility] MCV 81.0 (L) 82.6 - [place] [address] [facility] LABORATORY MCH 26.5 (L) 27.1 - [facility] [place] 32.0 pg [facility] MCHC 32.7 31.7 - [facility] [place] 35.0 g/dL [facility] Platelets 212 145 - 357 [facility] [place] x10(3)/[facility] LABORATORY RDWSD 50.4 (H) 37.0 - [place] [place] [address] [facility] LABORATORY RDWCV 17.3 (H) 11.5 - [facility] [place] 14.1 % [facility] MPV 10.6 7.6 - 12.[address] [facility] LABORATORY nRBC % Auto 0.0 % [facility] nRBC Abs Auto 0.000 0.000 - [facility] 0.000 [facility] x10(3)/[facility] LABORATORY Specimen Anatomical Collection Method Collection Time Receive d Time (Source) Location / / Volume Laterality Blood 10/01/2021 5:20 PM 5:25 EDT PM EDT Resulting Agency Comment Spec In Lab Greyson Chase APRN HEMATOLOGY ORDERABLES Performing Organization Address City/[facility] Phon e Number [address] T4, free (10/01/2021 5:20 PM EDT) athologist Signature Free T4 1.42 0.93 - 1.70 [facility] [place] ng/dL [facility] Comment: Reference Interval (ng/dL): Females: ??First Trimester: 0.97-1.68 ??Second Trimester: 0.77-1.51 ??Third Trimester: 0.77-1.49 Specimen Anatomical Collection Method Collection Time Receive d Time (Source) Location / / Volume Laterality Blood 10/01/2021 5:20 PM 5:25 EDT PM EDT Resulting Agency Comment Spec In Lab Greyson Chase APRN CHEMISTRY ORDERABLES Performing Organization Address City/State/ZIP Code Phon e Number [address] (ABNORMAL) Differential, Automated (10/01/2021 1:10 PM EDT) [facility] Method Time Signature Neutrophils % 81.7 % [facility] Neutr Abs (ANC) 8.20 (H) 1.70 - [facility] 6.10 [facility] x10(3)/[facility] LABORATORY Lymphocytes % 7.8 % [facility] Lymphocytes Abs 0.8 (L) 0.9 - 3.2 [facility] x10(3)/[place] LABORATORY Monocytes % 7.2 % [facility] Monocyte Abs 0.7 0.3 - 0.9 [facility] x10(3)/[place] LABORATORY Eosinophils % 2.0 % [facility] Eosinophils Abs 0.2 0.0 - 0.4 [facility] x10(3)/[place] LABORATORY Basophils % 0.3 % [facility] Basophils Abs 0.0 0.0 - 0.1 [facility] x10(3)/[place] LABORATORY Immature Gran % 1.00 % [facility] Comment: Immature granulocytes(IG's)percentage an d absolute count will include metamyelocytes, myelocytes, and promyelo cytes. Blood smears from CBCs yielding IG's will be scanned manually for concor dance. If this scan disagrees with the automated IG or if promyelocytes are not ed, a manual differential will be performed. Blanca Gran Abs 0.10 (H) 0.00 - 0.04 x10(3)/[facility] LABORATORY Specimen Anatomical Collection Method Collection Time Receive d Time (Source) Location / / Volume Laterality Blood 10/01/2021 1:10 PM 2 1:22 EDT PM EDT Resulting Agency Comment Spec In Lab Stephanie Cevallos MD HEMATOLOGY ORDERABLES Performing Organization Address City/State/Z[place] [address] (ABNORMAL) Hemogram (10/01/2021 1:10 PM EDT) Analysis Performed At Patho logist Time Signature WBC 10.0 (H) 4.0 - 9.5 [facility] x10(3)/[facility] LABORATORY RBC 3.91 (L) 4.00 - [facility] [place] 5.21 [facility] x10(6)/[facility] LABORATORY Hemoglobin 10.6 (L) 11.7 - [facility] [place] 15.5 g/dL [facility] Hematocrit 31.5 (L) 35.7 - [facility] [place] 45.8 % [facility] MCV 80.6 (L) 82.6 - [facility] [address] [facility] LABORATORY MCH 27.1 27.1 - [place] 32.0 pg [facility] MCHC 33.7 31.7 - [facility] 35.0 g/dL [facility] Platelets 179 145 - 357 [facility] x10(3)/[facility] LABORATORY RDWSD 51.4 (H) 37.0 - [facility] 46.[address] [facility] LABORATORY RDWCV 17.4 (H) 11.5 - [facility] 14.1 % [facility] MPV 10.4 7.6 - 12.9 [facility] LABORATORY nRBC % Auto 0.0 % [facility] LABORATORY nRBC Abs Auto 0.000 0.000 [facility] x10(3)/[facility] LABORATORY Specimen Anatomical Collection Method Collection Time Receive d Time (Source) Location / / Volume Laterality Blood 10/01/2021 1:10 PM 2 1:22 EDT PM EDT Resulting Agency Comment Spec In Lab Stephanie Cevallos MD HEMATOLOGY ORDERABLES Performing Organization Address City/State/[place] [address] POCT Glucose (10/01/2021 12:27 PM EDT) P athologist Signature POC Glucose 172 65 - 199 [facility] mg/dL [facility] Comment: Supplemental ranges: <140 mg/dL before meals <180 mg/dL all other times of the day Specimen Anatomical Collection Method Collection Time Receive d Time (Source) Location / / Volume Laterality Blood 10/01/2021 12:27 10/01/2021 PM EDT 12:27 PM EDT Greyson Silverman MD POINT OF CARE TEST ORDERABLE S Performing Organization Address City/State/ZIP [place] [address] COVID-19 PCR (10/01/2021 11:35 AM EDT) [facility] Method Time Signature SARS-CoV-2 Not Detected Not Detected [place] RNA PCR [facility] LABORATORY Comment: This result should be interpreted in com bination with the clinical observations, patient history and epidem iological information. For testing of asymptomatic individuals, assay performa nce characteristics and clinical utility have not been evaluated. Testing for SARS-CoV-2 (Severe acute respiratory syndrome coronavirus 2, form erly known as 2018 novel coronavirus or 2018-nCoV) to aid in the diagnosis of CO VID-19 is performed using the Simplexa COVID-19 Direct Assay by [employer] as authorized by the FDA issued Emergency Use Authorization (EUA). This assay is intended for In-vitro Diagnostic (IVD) use with nasopharyngeal swabs collected from individuals meeting the CDC criteria for testing. Th e assay is performed based on the instructions for use and additional guid ance provided by the FDA. Testing is performed in the Microbiology Laboratory within the Department of Pathology and Laboratory Medicine at [facility], certified under the Clinical Laboratory Improvement Amendmen ts of 1988 (CLIA), 42 U.S.C. section 263a, to perform high complexity tests. Assay performance has been verified according to clinical laboratory regulat ory requirements. Test results are provided above. A resul t of Not Detected indicates that the viral RNA target is not present but does not preclude SARS-CoV-2 infection. False negative results may occur if a sp ecimen is improperly collected, transported or handled; if amplification inhibitors are present; or if inadequate numbers of viral particles ar e present in the specimen. A result of Detected suggests a current or recent infection and the patient is presumed to be infected. Positive and negative pr edictive values for this test are highly dependent on disease prevalence. A result of Invalid indicates the inability to conclusively determine the presence or absence of SARS-CoV-2 RNA in the sample which can be due to a vari ety of factors. Recollection is recommended in the case of an invalid re sult. CDC COVID-19 criteria for testing on hum an specimens and clinical management guidance information are available at [facility] CDC Coronavirus Disease 2019 (COVID-19) webpage under Information fo r Healthcare Professionals (https://www.cdc.gov/coronavirus/2019-nc ov/hcp/index.html). Additional information about this and ot her EUA tests can be found in provider and patient fact sheets at the following FDA website: https://www.fda.gov/medical-devices/dlmrojlqmyy-oahhahb-8650-riiba-93-myyrhongo- bre-lscihoshnzjqie-ysxjlrj-devices/zlhua-vpsgtfytbqo-trxk SARS-CoV-2 Source CHEMICAL DEPENDENCY COUNSELOR Swab [facility] LABORATORY Specimen (Source) Anatomical Collection Method Collection Time Re ceived Time Location / / Volume Laterality Nasopharyngeal Swab 10/01/2021 11:35 06/0 10/2021 AM EDT 12:06 PM EDT Comment: Symptoms->Surveillance Resulting Agency Comment Spec In Lab Greyson Silverman MD MICROBIOLOGY - GENERAL ORDER AYAD Performing Organization Address City/State/[place] [address] (ABNORMAL) BLOOD GAS 2 ARTERIAL (10/01/2021 9:39 AM EDT) Analysis Performed At Patho logist Time Signature pH Art 7.38 7.35 - [facility] 7.45 [facility] pCO2 Art 41 35 - 45 [facility] mmHg [facility] pO2 Art 276 (H) 85 - 104 [facility] mmHg [facility] HCO3 Art 23.3 20.0 - [facility] 26.0 [facility] mmol/L [facility] LABORATORY BE Art -1.9 -3.0 - 3.0 [facility] mmol/L [facility] Hgb Blood Gas 10.9 (L) 11.7 - [facility] 15.5 g/dL [facility] O2HB Art 97.9 (H) 94.0 - [facility] 97.0 % [facility] COHB Art 0.4 % [facility] LABORATORY Comment: Nonsmokers: 0.5-1.5% COHB Smokers: Variable, but usually less than 10% Toxic: 20-30% COHB Lethal: Greater than 60% COHB METHB Art 0.2 <=1.5 % [facility] LABORATORY Na Whole Blood 136 135 - 145 mmol/L [facility] K Whole Blood 3.7 3.5 - 5.0 mmol/L [facility] Comment: Please note: Patients with WBC >100,000 may have falsely elevated Potassium levels. Contact the Clinical Chemistry L aboratory if there are any questions. ICa Whole Blood 1.13 (L) 1.15 - 1.33 mmol/L [facility] LABORATORY Comment: Note: ??Total bilirubin higher than 20 m g/dL may lead to falsely low ionized calcium. CL Whole Blood 103 98 - 107 mmol/L [facility] LABORATORY Gluc Whole Bld 124 65 - 199 mg/dL [facility] LABORATORY Comment: Diabetes: >=200 mg/dL plus symp toms. Lactate WB 1.2 0.5 - 2.2 mmol/L [facility] LABORATORY Specimen Anatomical Collection Method Collection Time Receive d Time (Source) Location / / Volume Laterality Blood 10/01/2021 9:39 AM 9:39 EDT AM EDT Greyson Silverman MD CHEMISTRY ORDERABLES Performing Organization Address City/[facility]/[place] [address] IR OR VASC Aniogram Image Storage Only (10/01/2021 8:51 AM EDT) Specimen (Source) Anatomical Location Collection Method / Collectio n Time Received Time / Laterality Volume Narrative RAD - 10/01/2021 8:51 AM EDT This exam is auto-finalizing. It's purpo se is for storage only. Greyson Silverman MD IMG FILM LIBRARY ORDERABLES Performing Organization Address City/State/ZIP Code Phon e Number [place], [place] Type and Screen Validity (10/01/2021 7:30 AM EDT) [facility] Method Time Signature T&S only valid [facility] LABORATORY Comment: This Type and Screen result is only valid at the [facility] Specimen Anatomical Collection Method Collection Time Receive d Time (Source) Location / / Volume Laterality Blood 10/01/2021 7:30 AM 2 7:33 EDT AM EDT Resulting Agency Comment Spec In Lab Greyson Silverman MD BLOOD BANK ORDERABLES Performing Organization Address City/State/[place] [address] ABORH Recheck Status (10/01/2021 7:30 AM EDT) [facility] Method Time Signature ABORH Type Completed [facility] LABORATORY Specimen Anatomical Collection Method Collection Time Receive d Time (Source) Location / / Volume Laterality Blood 10/01/2021 7:30 AM 2 7:33 EDT AM EDT Resulting Agency Comment Spec In Lab Greyson Silverman MD BLOOD BANK ORDERABLES Performing Organization Address City/[facility]/[place]IP [place] [address] Antibody screen (10/01/2021 7:30 AM EDT) [facility] Method Time Signature Ab Screen Negative [facility] LABORATORY Expires at 10/04/2021 [facility] [id number] on: [facility] Specimen Anatomical Collection Method Collection Time Receive d Time (Source) Location / / Volume Laterality Blood 10/01/2021 7:30 AM 2 7:33 EDT AM EDT Resulting Agency Comment Spec In Lab Greyson Silverman MD BLOOD BANK ORDERABLES Performing Organization Address City/[facility]/[place]IP [place] [address] ABO/Rh Typing (10/01/2021 7:30 AM EDT) P athologist Signature ABORh Type A Pos [facility] LABORATORY Specimen Anatomical Collection Method Collection Time Receive d Time (Source) Location / / Volume Laterality Blood 10/01/2021 7:30 AM 2 7:33 EDT AM EDT Resulting Agency Comment Spec In Lab Greyson Silverman MD BLOOD BANK ORDERABLES Performing Organization Address City/State/ZIP Code Phon e Number [address] Prealbumin (10/01/2021 7:30 AM EDT) athologist Signature Prealbumin 23 20 - 40 [facility] mg/dL [facility] Comment: Prealbumin levels are generally lower in the pediatric population; adult concentrations are usually attained near puberty. Specimen Anatomical Collection Method Collection Time Receive d Time (Source) Location / / Volume Laterality Blood 10/01/2021 7:30 AM 8:03 EDT AM EDT Resulting Agency Comment Spec In Lab Greyson Silverman MD CHEMISTRY ORDERABLES Performing Organization Address City/[facility]/ZIP Code Phon e Number [address] (ABNORMAL) Basic Metabolic Panel (non-fasting) (10/01/2021 7:30 AM EDT) athologist Signature Glucose Lvl 118 65 - 199 [facility] mg/dL [facility] Comment: Diabetes: >=200 mg/dL plus symp toms BUN 37 (H) 8 - 18 mg/dL [facility] LABORATORY Creatinine 1.99 (H) 0.70 - 1.20 mg/dL [facility] LABORATORY Sodium 137 135 - 145 mmol/L [facility] LABORATORY Potassium 3.6 3.5 - 5.0 mmol/L [facility] LABORATORY Comment: Please note: ??Patients with WBC >100,00 0 may have falsely elevated Potassium levels. ??For accurate Potassium quantif ication in these patients send serum separator tube (gold top) for subsequent determinations. ??Contact the Clinical Chemistry Laboratory if there are any qu estions. Chloride 101 98 - 107 mmol/L [facility] LABORATORY CO2 23 22 - 31 mmol/L [facility] LABORATORY Anion Gap 13 5 - 15 mmol/L [facility] LABORATORY Calcium 9.2 8.5 - 10.5 mg/dL [facility] LABORATORY Estimated GFR 24 (L) >=60 mL/min/1.73 m?? [facility] Comment: This patient? s estimated glomerular filtration rate (eGFR) is between 24 mL/min/1.73 m2 (patients with less muscl e mass) and 28 mL/min/1.73 m2 (patients with more muscle mass) as determined by the CKD-EPI equation. Assessment of eGFR is not appropriate when creatinine concentrations are rapidly changing. For clinical decisions where creatinine clearance will affect therapy, a 24-hour urine creatinine clearance may b e advised. Assignment of CKD stage 1 - 5 for patien ts with an eGFR near the transition point between stages may be based on cli nical assessment of muscle mass and symptoms in addition to eGFR. Specimen Anatomical Collection Method Collection Time Receive d Time (Source) Location / / Volume Laterality Blood 10/01/2021 7:30 AM 8:03 EDT AM EDT Resulting Agency Comment Spec In Lab Greyson Silverman MD CHEMISTRY ORDERABLES Performing Organization Address City/State/ZIP Code Phon e Number [place] [id number] (ABNORMAL) Hemogram (10/01/2021 7:30 AM EDT) Analysis Performed At Patho logist Time Signature WBC 6.2 4.0 - 9.5 [facility] LABORATORY RBC 4.56 4.00 - [place] 5.21 [facility] x10(6)/[facility] LABORATORY Hemoglobin 12.0 11.7 - [place] 15.5 g/dL [facility] Hematocrit 37.2 35.7 - [place] 45.8 % [facility] MCV 81.6 (L) 82.6 - [place] [address] [facility] LABORATORY MCH 26.3 (L) 27.1 - [facility] 32.0 pg [facility] MCHC 32.3 31.7 - [place] 35.0 g/dL [facility] Platelets 220 145 - 357 [facility] x10(3)/[facility] LABORATORY RDWSD 50.4 (H) 37.0 - [facility] [address] [facility] LABORATORY RDWCV 17.2 (H) 11.5 - [place] [place] 14.1 % [facility] MPV 10.5 7.6 - 12.[address] [facility] LABORATORY nRBC % Auto 0.0 % [facility] LABORATORY nRBC Abs Auto 0.000 0.000 - [place] [place] 0.000 [facility] x10(3)/[facility] LABORATORY Specimen Anatomical Collection Method Collection Time Receive d Time (Source) Location / / Volume Laterality Blood 10/01/2021 7:30 AM 8:03 EDT AM EDT Resulting Agency Comment Spec In Lab Greyson Silverman MD HEMATOLOGY ORDERABLES Performing Organization Address City/State/[place] [address] SCAN DOC: IMPLANTABLE DEVICES (10/01/2021 12:00 AM EDT) Narrative This result has an attachment that is no t available. Unknown MEDIA MGR SCAN EXT ORDR/RSLT documented in this encounter Visit Diagnoses Diagnosis Pre-op testing Preoperative examination, unspecified Abdominal aortic aneurysm (AAA) without rupture Uncontrolled hypertension Unspecified essential hypertension GAEL (acute kidney injury) Acute kidney failure, unspecified Abdominal aortic aneurysm (AAA) without rupture documented in this encounter Admitting Diagnoses Diagnosis Abdominal aortic aneurysm (AAA) without rupture documented in this encounter Administered Medications Inactive Administered Medications - up to 3 most recent administrations Medication Order MAR Action Action Date Dose Rate Site acetaminophen (Ofirmev) (1000 Given 10/01/2021 1:59 PM 1,000 mg 400 mL/hr mg/100 mL) infusion 1,000 mg EDT 1,000 mg, Intravenous, at 400 mL/hr, ONCE, 1 dose, On Thu10/01/21 at 1445, Maximum dose of acetaminophen is 4000 mg from all sources in 24 hours. When ordered for pain, acetaminophen should be given even when other ordered pain medications are indicated. , Routine, Is ketorolac (Toradol) IV contraindicated? Yes, Can this patient tolerate oral medications or suppositories? No acetaminophen (Tylenol) tablet 1,000 mg Given 10/01/2021 7:35 AM EDT 1,000 mg 1,000 mg, Oral, ONCE, 1 dose, On Thu10/01/21 at 0730, Administer with SIP of H2O only., Day of Surgery (Day of Procedure), Routine acetaminophen (Tylenol) tablet 1,000 mg Given 10/07/2021 12:31 PM EDT 1,000 mg 1,000 mg, Oral, EVERY 6 HOURS SCHEDULED, First dose (after last modification) on Thu10/01/21 at 1415, Until Discontinued, Administer for temperature greater than or equal to 38.2 degrees celsius. Maximum daily dose of acetaminophen from all sources not to exceed 4,000 mg. When ordered for pain, acetaminophen should be given even when other ordered pain medications are indicated., Routine Given 10/07/2021 6:10 AM EDT 1,000 mg Given 10/06/2021 11:45 AM EDT 1,000 mg amLODIPine (Norvasc) tablet 5 mg Given 10/07/2021 6:10 AM EDT 5 mg 5 mg, Oral, DAILY, First dose on Thu10/03/21 at 0700, Until Discontinued, Routine Given 10/06/2021 8:09 AM EDT 5 mg Given 10/05/2021 8:06 AM EDT 5 mg aspirin EC tablet 81 mg Given 10/07/2021 8:32 AM EDT 81 mg 81 mg, Oral, DAILY, First dose on Thu10/02/21 at 0900, Until Discontinued, Routine Given 10/06/2021 8:10 AM EDT 81 mg Given 10/05/2021 8:07 AM EDT 81 mg atorvastatin (Lipitor) tablet 20 mg Given 10/06/2021 4:02 PM EDT 20 mg 20 mg, Oral, EVERY EVENING, First dose on Thu10/01/21 at 1700, Until Discontinued, Routine Given 10/05/2021 5:43 PM EDT 20 mg Given 10/04/2021 5:56 PM EDT 20 mg bisacodyL (Dulcolax) suppository 10 mg 10 mg, Rectal, DAILY, First dose on Thu10/04/21 at 101 5, Until Discontinued, Routine carvediloL (Coreg) tablet 12.5 mg Given 10/07/2021 8:32 AM EDT 12.5 mg 12.5 mg, Oral, 2 TIMES DAILY, First dose on Thu10/02/21 at 1200, Until Discontinued, Routine Given 10/06/2021 10:36 PM EDT 12.5 mg Given 10/06/2021 8:09 AM EDT 12.5 mg furosemide (Lasix) (10 mg/mL) injection 10 mg Given 10/02/2021 11:29 AM EDT 10 mg 10 mg, Intravenous, ONCE, 1 dose, On Thu10/02/21 at 1200 furosemide (Lasix) tablet 20 mg Given 10/07/2021 8:32 AM EDT 20 mg 20 mg, Oral, 2 TIMES DAILY, First dose on Thu10/02/21 at 1700, Until Discontinued, Routine Given 10/06/2021 4:03 PM EDT 20 mg Given 10/06/2021 8:09 AM EDT 20 mg gabapentin (Neurontin) capsule 300 mg Given 10/06/2021 10:37 PM EDT 300 mg 300 mg, Oral, NIGHTLY, First dose on Thu10/01/21 at 2100, Until Discontinued, Routine Given 10/05/2021 8:19 PM EDT 300 mg Given 10/04/2021 8:07 PM EDT 300 mg heparin (porcine) (5,000 units/1 mL) Given 10/02/2021 8:07 AM ED T 5,000 Units subcutaneous injection 5,000 Units 5,000 Units, Subcutaneous, EVERY 8 HOURS SCHEDULED, First dose on Thu10/02/21 at 0800, Until Discontinued, Routine heparin (porcine) (5,000 units/1 mL) Given 10/07/2021 6:10 AM ED T 5,000 Units subcutaneous injection 5,000 Units 5,000 Units, Subcutaneous, EVERY 8 HOURS SCHEDULED, First dose on Thu10/02/21 at 2200, Until Discontinued, Routine Given 10/06/2021 4:03 PM EDT 5,000 Units Given 10/06/2021 5:10 AM EDT 5,000 Units hydrALAZINE (Apresoline) tablet 25 mg Given 10/07/2021 8:32 AM EDT 25 mg 25 mg, Oral, 3 TIMES DAILY, First dose on Thu10/04/21 at 0900, Until Discontinued, Take with Food, Routine Given 10/06/2021 10:38 PM EDT 25 mg Given 10/06/2021 4:03 PM EDT 25 mg HYDROmorphone (Dilaudid) (0.5 mg/0.5 mL) Given 10/02/2021 11:00 AM EDT 0.2 mg injection syringe 0.2 mg 0.2 mg, Intravenous, EVERY 1 HOUR PRN, Starting on Thu10/01/21 at 1317, Until Thu10/04/21 at 0710, Pain, mild pain (1-3), May give an additional 0.2 mg in 30 minutes once if pain not relieved., Routine HYDROmorphone (Dilaudid) (0.5 mg/0.5 mL) Given 10/02/2021 10:35 PM EDT 0.4 mg injection syringe 0.4 mg 0.4 mg, Intravenous, EVERY 1 HOUR PRN, Starting on Thu10/01/21 at 1317, Until Thu10/04/21 at 0710, Pain, moderate pain (4-6), May give an additional 0.2 mg in 30 minutes once if pain not relieved., Routine Given 10/02/2021 5:01 PM EDT 0.4 mg Given 10/02/2021 12:34 PM EDT 0.4 mg isosorbide dinitrate (Isordil) tablet 20 mg Given 10/07/2021 10:25 AM EDT 20 mg 20 mg, Oral, 3 TIMES DAILY, First dose on Thu10/01/21 at 2100, Until Discontinued Given 10/07/2021 6:10 AM EDT 20 mg Given 10/06/2021 4:02 PM EDT 20 mg lactated Ringers 500 mL IV bolus New Bag 10/01/2021 6:07 PM EDT Intravenous, ONCE, 1 dose, On Thu10/01/21 at 1845 lactated ringers infusion New Bag 10/01/2021 1:44 PM EDT 50 mL/hr 50 mL/hr 50 mL/hr, Intravenous, CONTINUOUS, Starting on Thu10/01/21 at 1430, Until Thu10/02/21 at 1213 levothyroxine (Synthroid) tablet 50 mcg Given 10/07/2021 6:10 AM EDT 50 mcg 50 mcg, Oral, EVERY MORNING, First dose (after last reorder) on Thu10/02/21 at 0600, Until Discontinued, Routine Given 10/06/2021 5:10 AM EDT 50 mcg Given 10/05/2021 5:13 AM EDT 50 mcg magnesium citrate oral liquid 296 mL Given 10/03/2021 4:09 PM EDT 296 mLs 296 mL, Oral, ONCE, 1 dose, On Cinthia 10/03/21 at 1445, Routine magnesium sulfate 2 g in sterile water New Bag 10/02/2021 8:08 AM EDT 2 g 25 mL/hr 50 mL infusion 2 g, Intravenous, EVERY HOUR, 2 doses, First dose on Thu10/02/21 at 0700, Last dose on Thu10/02/21 at 0800, Administer over 120 Minutes New Bag 10/02/2021 6:27 AM EDT 2 g 25 mL/hr ondansetron (pf) (Zofran) (2 mg/mL) inje ction 4 mg 4 mg, Intravenous, EVERY 8 HOURS PRN, Starting on Thu10/01/21 at 1301, Until 10/07/21 at 1614, Nausea, May repeat time s one in 30 minutes if ineffective. If multiple antiemetics are ordered, use ondansetron firs t, Recovery (Recovery-Hospital Unit) ondansetron (Zofran) tablet 4 mg 4 mg, Oral, EVERY 8 HOURS PRN, Starting on Thu10/01/21 at 1301, Until 10/07/21 at 1614, Nausea, Vomiting, If multiple antiemetics are ordered, use ondansetron first. PO Preferred. If patient unable to take PO, may give IV if ordered. May repeat times one in 45 minutes if ineffe ctive., Recovery (Recovery-Hospital Unit), Routine oxyCODONE (Roxicodone) tablet 5 mg 5 mg, Oral, EVERY 4 HOURS PRN, Starting on 10/05/21 at 0753, Until 10/07/21 at 1614, Pain, for pain, give 1st. For p ain 1-5 give 5 mg for pain 6-10 give 10 mg, Routine oxyCODONE (Roxicodone) tablet 5-10 mg Given 10/02/2021 8:09 PM EDT 10 mg 5-10 mg, Oral, EVERY 4 HOURS PRN, Starting on Thu10/01/21 at 1317, Until 10/05/21 at 0754, Pain, for pain, give 1st. For pain 1-5 give 5 mg for pain 6-10 give 10 mg, Routine Given 10/02/2021 9:14 AM EDT 10 mg Given 10/02/2021 12:22 AM EDT 5 mg PHENYLephrine Rate/Dose Change 10/02/2021 8:44 AM 50 mcg/min 37.5 mL/ hr (Junaid-Synephrine) (80 EDT mcg/mL) in sodium chloride 0.9% 250 mL infusion 0-180 mcg/min (0-135 mL/hr), Intravenous, CONTINUOUS, Starting on Thu10/01/21 at 1445, Until Cinthia 10/03/21 at 0914, Titrate to maintain mean arterial pressure (MAP) greater than 65 mmHg. Start at 50 mcg/min and adjust dose by 25 mcg/min every 10 minutes. Do not exceed 180 mcg/min. Warning Vesicant/Irritant Medication Per the Vas[place] [address]: A central line must be placed for the administration of vasopressor infusions lasting longer than 8 hours. Warning Vesicant/Irritant Medication Rate/Dose Change 10/02/2021 7:45 AM EDT 30 mcg/min 22.5 mL/hr Rate/Dose Change 10/01/2021 5:30 PM EDT 30 mcg/min 22.5 mL/hr polyethylene glycoL (Miralax) packet 17 g 17 g, Oral, DAILY PRN, Starting on Cinthia at 0915, Until Thu10/07/21 at 1614, Constipation, Administer if no bowel mov ement within 48 hours to achieve: (1) One bowel movement at least every 48 hours, AND (2) without straining. If multiple PRN bowel medications ordered, start with polyethylene gly col, then lactulose, then oral bisacodyl, then bisacodyl supposito ry, then magnesium citrate, then tap water enema. Multiple medications may be given concomitantly for constipation., Routine polyethylene glycoL (Miralax) packet 17 g Given 10/07/2021 8:31 AM EDT 17 g 17 g, Oral, DAILY, First dose on Thu10/04/21 at 1015, Until Discontinued, Routine Given 10/06/2021 8:08 AM EDT 17 g Given 10/05/2021 8:06 AM EDT 17 g potassium chloride ER (K-Dur/Klor-Con) Given 10/04/2021 10:00 AM EDT 20 mEq tablet 20 mEq 20 mEq, Oral, ONCE, 1 dose, On Thu10/04/21 at 1015, 20 mEq tablet may be dissolved in water for administration, Routine potassium chloride ER (K-Dur/Klor-Con) Given 10/07/2021 10:25 AM EDT 40 mEq tablet 40 mEq 40 mEq, Oral, ONCE, 1 dose, On Thu10/07/21 at 1030, 20 mEq tablet may be dissolved in water for administration, Routine senna-docusate (Pericolace) 8.6-50 mg per Given 2021 8:32 AM EDT 2 tablets tablet 2 tablet 2 tablet, Oral, 2 TIMES DAILY, First dose on Thu10/02/21 at 1300, Until Discontinued, Routine Given 10/06/2021 10:38 PM EDT 2 tablets Given 10/06/2021 8:09 AM EDT 2 tablets sodium chloride 0.9 % (flush) (BD PosiFlush Given 10/03/2021 8:3 0 PM EDT 5 mLs Normal Saline 0.9) flush 5 mL 5 mL, Intravenous, 2 TIMES DAILY, First dose on Thu10/01/21 at 1400, Until Discontinued, Recovery (Recovery-Hospital Unit), Routine Given 10/03/2021 8:08 AM EDT 5 mLs Given 10/02/2021 10:15 PM EDT 5 mLs sodium chloride 0.9 % (flush) (BD PosiFlush Given 10/04/2021 8:0 8 PM EDT 5 mLs Normal Saline 0.9) flush 5-20 mL 5-20 mL, Intravenous, EVERY 1 MIN PRN, Starting on Thu10/01/21 at 1301, Until Thu10/07/21 at 1614, flush, Flush pertains to all indwelling lines. Flush per protocol found in the job aid using the link provided on this medication record., Recovery (Recovery-Hospital Unit), Routine sodium chloride 0.9% infusion New Bag 10/03/2021 11:11 AM EDT 50 mL/hr 50 mL/hr 50 mL/hr, Intravenous, CONTINUOUS, Starting on Cinthia 10/03/21 at 1115, Until Thu10/03/21 at 2009 traZODone (Desyrel) tablet 50 mg Given 10/05/2021 8:19 PM EDT 50 mg 50 mg, Oral, NIGHTLY PRN, Starting on Thu10/01/21 at 1327, Until Thu10/07/21 at 1614, Sleep, Routine Given 10/04/2021 10:50 PM EDT 50 mg Given 10/03/2021 10:49 PM EDT 50 mg documented in this encounter Active and Recently Administered Medications Times are shown in EDT. Scheduled Medication Order 10/05/2021 10/06/2021 10/07/2021 acetaminophen (Tylenol) tablet 1,000 mg 0052 (Given - Provider: Crow Babb RN)0514 (Given - Provider: Crow Babb RN)1211 (Given - Provider: Eliza Casey RN)1743 (Given - Provider: Eliza Casey RN)2305 (Given - Provider: Crow Babb RN) 0509 (Given - Provider: Crow Babb RN )1145 (Given - Provider: Eliza Casey RN)1800 (Not Given - Provider: Eliza Casey RN - Reason: Patient/family refused) 0000 (Not Given - Provider: Rolo bond RN - Reason: Patient/family refused)0610 (Given - Provider: Rolo Fulton RN)1231 (Given - Provider: Leah Heck RN) 1,000 mg, Oral, EVERY 6 HOURS SCHEDULED, First dose (after last modification) on Thu10/01/21 at 1415, Until Discontinued, Administer for temperature greater than or equal to 38.2 degrees celsius. Maximum daily dose of acetaminophen from all so urces not to exceed 4,000 mg. When ordered for pain, acetaminophen should be given even when other ordered pain medications are indicated., Routine amLODIPine (Norvasc) tablet 5 mg 0806 (Given - Provider: Srinivasa Casey RN) 0809 (Given - Provider: Eliza Casey RN) 0610 (Given - Provider: Rolo Fulton RN) 5 mg, Oral, DAILY, First dose on 10/03 at 0700, Until Discontinued, Routine aspirin EC tablet 81 mg 0807 (Given - Provider: Eliza chiang RN) 0810 (Given - Provider: Eliza Casey RN) 0832 (Given - Provider: Krish Caballero) 81 mg, Oral, DAILY, First dose on 12/16 at 0900, Until Discontinued, Routine atorvastatin (Lipitor) tablet 20 mg 174 (Given - Prov ider: Eliza Casey RN) 1602 (Given - Provider: Eliza Casey RN) 20 mg, Oral, EVERY EVENING, First dose o n e 10/01/21 at 1700, Until Discontinued, Routine bisacodyL (Dulcolax) suppository 10 mg 0900 (Hold - Pr ovider: Eliza Casey RN - Reason: See comment) 0900 (Not Given - Provider: Eliza chiang RN - Reason: See comment) 0900 (Not Given - Provider: Leah Beavers i, RN - Reason: Patient/family refused) 10 mg, Rectal, DAILY, First dose on Thu10/04/21 at 1015, Until Discontinued, Routine carvediloL (Coreg) tablet 12.5 mg 0806 (Given - Provid er: Eliza Casey RN)2018 (Given - Provider: Crow Babb RN) 0809 (Given - Provider: Eliza Casey RN)223 (Given - Provider: Sol Mehta RN) 0832 (Given - Provider: Leah Heck RN) 12.5 mg, Oral, 2 TIMES DAILY, First dose on Thu10/02/21 at 1200, Until Discontinued, Routine furosemide (Lasix) tablet 20 mg 0806 (Given - Provider : Eliza Casey RN)1744 (Given - Provider: Eliza Casey RN) 0809 (Given - Provider: Eliza Casey RN)1603 (Given - Provider: Eliza Casey RN) 0832 (Given - Provider: Leah Heck RN) 20 mg, Oral, 2 TIMES DAILY, First dose o n Thu10/02/21 at 1700, Until Discontinued, Routine gabapentin (Neurontin) capsule 300 mg 2019 (Given - Provider : Crow Babb RN) 2237 (Given - Provider: Sol Mehta, LAWRENCE) 300 mg, Oral, NIGHTLY, First dose on Thu10/01/21 at 2100, Until Discontinued, Routine heparin (porcine) (5,000 units/1 mL) subcutaneous inje ction 5,000 Units 0514 (Given - Provider: Crow Babb, LAWRENCE)1534 (Given - Provider: Eliza Casye, LAWRENCE)2247 (Given - Provider: Crow Babb RN) 0510 (Given - Provider: Crow Babb, LAWRENCE)1603 (Given - Provider: Eliza Casey, LAWRENCE)2200 (Not Given - Provider: Rolo Fulton RN - Reason: Patient/family refused) 0610 (Given - Provider: Rolo Fulton, LAWRENCE)1400 (Due - Provider: Admin Adt) 5,000 Units, Subcutaneous, EVERY 8 HOURS SCHEDULED, First dose on Thu10/02/21 at 2200, Until Discontinued, Routine hydrALAZINE (Apresoline) tablet 25 mg 0806 (Given - Pr ovider: Eliza Casey RN)1534 (Given - Provider: Eliza Casey, LAWRENCE)2019 (Given - Provider: Crow Babb RN) 0809 (Given - Provider: Eliza Casey, LAWRENCE)1603 (Given - Provider: Eliza Casey, LAWRENCE)2238 (Given - Provider: Sol Mehta, LAWRENCE) 0832 (Given - Provider: Leah Heck RN) 25 mg, Oral, 3 TIMES DAILY, First dose o n Thu10/04/21 at 0900, Until Discontinued, Take with Food, Routine isosorbide dinitrate (Isordil) tablet 20 mg 0513 (Give n - Provider: Crow Babb RN)1211 (Given - Provider: Eliza Casey RN)1534 (Given - Provider: Eliza Casey, LAWRENCE) 0509 (Given - Provider: Crow Babb RN )1145 (Given - Provider: Eliza Casey, LAWRENCE)1602 (Given - Provider: Eliza Casey, LAWRENCE) 0610 (Given - Provider: Rolo Fulton RN)1025 (Given - Provider: Leah Heck, LAWRENCE) 20 mg, Oral, 3 TIMES DAILY, First dose o n Thu10/01/21 at 2100, Until Discontinued levothyroxine (Synthroid) tablet 50 mcg 0513 (Given - Provider: Crow Babb RN) 0510 (Given - Provider: Crow Babb, LAWRENCE) 0610 (Given - Provider: Rolo Fulton, LAWRENCE) 50 mcg, Oral, EVERY MORNING, First dose (after last reorder) on Thu10/02/21 at 0600, Until Discontinued, Routine polyethylene glycoL (Miralax) packet 17 g 08 (Given - Provider: Eliza Casey RN) 08 (Given - Provider: Eliza Casey RN) 0831 (Giv en - Provider: Leah Heck RN) 17 g, Oral, DAILY, First dose on 09/25 at 1015, Until Discontinued, Routine potassium chloride ER (K-Dur/Klor-Con) tablet 40 mEq (COMPLETED) 1024 (Given - Provider: Leah Heck RN) 40 mEq, Oral, ONCE, 1 dose, On Thu at 1030, 20 mEq tablet may be dissolved in water for administration, Routine senna-docusate (Pericolace) 8.6-50 mg per tablet 2 tab let 805 (Given - Provider: Eliza Casey RN)2018 (Given - Provider: Crow Babb RN) 08 (Given - Provider: Eliza Casey RN)2237 (Given - Provider: Sol Mehta RN) 0832 (Given - Provider: Krish Caballero) 2 tablet, Oral, 2 TIMES DAILY, First dos e on Thu10/02/21 at 1300, Until Discontinued, Routine PRN Medication Order 10/05/2021 10/06/2021 10/07/2021 lidocaine (Xylocaine) 1% (10 mg/mL) injection 3 mg 3 mg (0.3 mL), Subcutaneous, ONCE PRN, 1 dose, Starting on Thu10/01/21 at 1301, Until Thu10/07/21 at 1614, for discomfort with PIV insertion, Recovery (Recovery-Hospital Unit), Routine ondansetron (pf) (Zofran) (2 mg/mL) injection 4 mg(Linked Group 1) 4 mg, Intravenous, EVERY 8 HOURS PRN, St arting on Tu10/01/21 at 1301, Until 10/07/21 at 1614, Nausea, May repeat times one in 30 minutes if ineffective. If multiple antiemetics are ordered, use on dansetron first, Recovery (Recovery-Hospital Unit) ondansetron (Zofran) tablet 4 mg(Linked Group 1) 4 mg, Oral, EVERY 8 HOURS PRN, Starting on Thu10/01/21 at 1301, Until Thu10/07/21 at 1614, Nausea, Vomiting, If multiple antiemetics are ordered, use ondansetron first. PO Preferred. If patient unab le to take PO, may give IV if ordered. M ay repeat times one in 45 minutes if ineffective., Recovery (Recovery-Hospital Unit), Routine oxyCODONE (Roxicodone) tablet 5 mg 5 mg, Oral, EVERY 4 HOURS PRN, Starting on 10/05/21 at 0753, Until 10/07/21 at 1614, Pain, for pain, give 1st. For pain 1-5 give 5 mg for pain 6-10 give 10 mg, Routine polyethylene glycoL (Miralax) packet 17 g 17 g, Oral, DAILY PRN, Starting on Cinthia at 0915, Until Thu10/07/21 at 1614, Constipation, Administer if no bowel movement within 48 hours to achieve: (1) One bowel movement at least every 48 hours , AND (2) without straining. If multiple PRN bowel medications ordered, start with polyethylene glycol, then lactulose, then oral bisacodyl, then bisacodyl suppository, then magnesium citrate, then tap water enema. Multiple medications may be given concomitantly for constipation., Routine sodium chloride 0.9 % (flush) (BD PosiFlush Normal Saline 0.9) f lush 5-20 mL 5-20 mL, Intravenous, EVERY 1 MIN PRN, S tarting on Thu10/01/21 at 1301, Until Thu10/07/21 at 1614, flush, Flush pertains to all indwelling lines. Flush per protocol found in the job aid using the link pr ovided on this medication record., Recovery (Recovery-Hospital U nit), Routine traZODone (Desyrel) tablet 50 mg 2019 (Given - Provider: Crow Babb RN) 50 mg, Oral, NIGHTLY PRN, Starting on 10/01/21 at 1327, Until Thu10/07/21 at 1614, Sleep, Routine Linked Groups Order Group 1: ondansetron (Zofran) tablet 4 mgJump to med 4 mg, Oral, EVERY 8 HOURS PRN, Starting on Thu10/01/21 at 1301, Until Thu10/07/21 at 1614, Nausea, Vomiting
If multiple antiemetics are ordered, use ondansetron first. PO Preferre d. If patient unable to take PO, may giv e IV if ordered. May repeat times one in 45 minutes if ineffective.
Recovery (Recovery-Hospital Unit), Routine Or ondansetron (pf) (Zofran) (2 mg/mL) injection 4 mgJump to med 4 mg, Intravenous, EVERY 8 HOURS PRN, St arting on Thu10/01/21 at 1301, Until Thu10/07/21 at 1614, Nausea
May repeat times one in 30 minutes if ineffective. If multiple antiemetics ar e ordered, use ondansetron first
Re covery (Recovery-Hospital Unit) documented in this encounter Care Teams School Office Manager Relationship Specialty Start Date End Date Sanjuanita Lee MD PCP - General 03/05/13 12/23/[address] [place] [address] documented as of this encounter
--- OUTSIDE RECORDS SUMMARY | 2022-02-22 23:27 | XMS_ITS | Encounter Summary ---
:1950 Author Organization [facility] [place] [address] Care Team Providers Name Role Phone Sanjuanita Lee MD Primary Care Provider Encounter Details Date Type Department Care Team Description 10/01/2021 Ancillary [place] [address] Social History Tobacco Use Types Packs/Day [...] Name Priority Date/Time Associated Diagnosis Comme nts IR OR VASC Routine 10/01/2021 8:51 AM Results f or this ANGIOGRAM IMAGE EDT procedure ar e in STORAGE ONLY the results section. documented in this encounter Results IR OR VASC Aniogram Image Storage Only (10/01/2021 8:51 AM EDT) Specimen (Source) Anatomical Location Collection Method / Collectio n Time Received Time / Laterality Volume Narrative BJ - 10/01/2021 8:51 AM EDT This exam is auto-finalizing. It's purpo se is for storage only. 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
--- OUTSIDE RECORDS SUMMARY | 2022-02-22 23:27 | XMS_ITS | Encounter Summary ---
:1950 Author Organization [facility] [place] [address] Care Team Providers Name Role Phone Sanjuanita Lee MD Primary Care Provider Reason for Visit Auth/Cert Specialty Diagnoses / Procedures Referred By Contact Refer red To Contact Diagnoses Abdominal aortic aneurysm (AAA) without rupture Enlarging Fusiform AAA Procedures PRO VISCERAL AND INFRARENAL ABDOM AORTA ONE PROSTHESIS @EVG REPAIR VISCERAL & INFRARENAL ABDML AORTA,FENESTRATED,ONE ARTERY,INC. S&I (WRVU 77.3) Referral ID Status Reason Start Date Expiration Date Visits Requ ested Visits Authorized [id number] 1 1 Encounter Details Date Type Department Care Team Description 10/03/2021 Anesthesia Event Gastroenterology at [facility] HidalgoDavis crowe DO [facility] [place] [address] ANESTHESIOLOGY [place], [place] [address] Anesthesia Record Procedure Summary Procedure Name Responsible Anesthesia Start Anesthesia Stop Anesthesiologist Time Time FLEXIBLE SIGMOIDOSCOPY Davis Hidalgo DO 10/03/21 1438 1527 (N/A Trunk) Events Date Time Event Comment 10/03/2021 1415 1435 AN Verify 1438 Start 1438 An Start Data 1440 Anesthesia Ready 1443 An Induction 1523 an stop data 1526 Recovery or ICU Handoff Patient care was transferred to the destination unit staff after review of the patient's medica l history, current anesthetic/surgi lucio status and plan, according to the Provider Handoff Checklist. 1527 Stop Name Total IV Lidocaine 60 mg Propofol 130 mg Dexmedetomidine 8 mcg Sodium Chloride 0.9% 350 mL Agents Name O2 Air N2O O2 Auxiliary Flowmeter 1 Blood No blood administrations on file. Lines, Drains, and Airways Type Details Placement Removal Incision 10/01/21; 0942; Right, 10/01/21 0942 by anterior; groin; Aria Cisse RN non-laparascopic puncture Incision 10/01/21; 0942; Left, 10/01/21 0942 by anterior; groin; Aria Cisse RN non-laparascopic puncture PIV 10/01/21; 0735; metacarpal 10/01/21 0735 by 09/25 07/16 1220 by vein (top of hand), right; Nina Jones R N Meli, Jennifer, RN [id number] catheter system; Anatomical Landmarks; US Not Used; 20 gauge; Pedro Jones RN; distraction, tolerated well, appears comfortable; no longer indicated; 10/07/21; 1220 Drain/Device Site 10/01/21; 0953; Luque 10/01/21 0953 by 0804 by CA-2; Sterile prep and Reid Black MD Mel i, Jennifer, RN drape, Barrier precautions, Sterile technique; Lidocaine 1%; Sitting; L3-4; Midline; 14 G Tuohy; Awake; 1.5 mm x 80 cm ([employer] Hermetic, closed tip; (needle depth 7 cm at loss of resistance, 8 cm at return of CSF, catheter threaded to 15 cm with return of CSF, no heme noted.); Chlorhexidine Tegaderm; 10/07/21 (not present on assessment); 0804 PIV 10/03/21; 0900; basilic 10/03/21 0900 by 2 0800 by vein (medial side of arm), Eliza Casey RN Mumuli, Miriam D, left; [id number] RN catheter system; Anatomical Landmarks; 22 gauge; MDM; distraction; 10/05/21; 0800 documented in this encounter Social History Tobacco Use Types Packs/Day Years [...] on file documented as of this encounter OR Notes Anesthesia Postprocedure Evaluation - Davis Hidalgo DO - 10/03/2021 7:09 PM EDT Department of Anesthesiology Post-procedure Note Patient: Charlene Harmon Procedure Summary Date: 10/03/21 Room / Location: [facility] ENDO 3 / [facility] ENDOSCOPY Anesthesia Start: 1438 Anesthesia Stop: 1527 Procedure: FLEXIBLE SIGMOIDOSCOPY (N/A Trunk) Diagnosis: (ischemic colitis) Surgeons: Silver Rossi MD Responsible Provider: Davis Hidalgo DO Anesthesia Type: MAC ASA Status: 3 All Anesthesia Providers: Anesthesiologist: Davis Hidalgo DO APPLIED PSYCHOLOGY PROFESSOR: Leisa Fang CRNA Vitals Value Taken Time BP Temp Pulse 83 10/03/21 1538 Resp 16 10/03/21 1538 SpO2 96 % 10/03/21 1538 Pain Level Vitals shown include unvalidated device data. Patient Location: PACU/[facility] Level of Consciousness: Awake and Alert Pain Management: Satisfactory Analgesia PONV: None Cardiovascular Status: Hemodynamically Stable Respiratory Status: Stable Respiratory Status and Supplemental O2 (NC or FM) Postoperative Fluid Status: Intravascular EUvolemia Possible Anesthetic Complications: NONE apparent at time of evaluation Final Primary Anesthesia Type: MAC (The anesthetic type performed was the same as planned.) Comments: Anesthesia Preprocedure Evaluation - Davis Hidalgo DO - 10/03/2021 11:54 AM EDT Pre-Anesthesia Evaluation for: Charlene Harmon a 70 y.o. female. Procedure(s): FLEXIBLE SIGMOIDOSCOPY Patient Active Problem List Diagnosis Date Noted ??? SBO (small bowel obstruction) 04/24/2020 ??? Pulmonary hypertension 12/20/2019 ??? Pre-transplant evaluation for CKD (chronic kidney disease) 05/31/2019 ??? Uncontrolled hypertension 01/09/2019 ??? Anemia of chronic renal failure, stage 4 (severe) 01/09/2019 ??? Chest pain 01/08/2019 ??? Hypertensive urgency 01/08/2019 ??? Systolic HF (heart failure) 01/08/2019 ??? CKD (chronic kidney disease) stage 5, GFR less than 15 ml/min 01/04/2019 ??? Hypertensive urgency 08/29/2018 ??? Renal artery stenosis 03/17/2018 ??? Abdominal aortic aneurysm (AAA) without rupture 03/01/2018 ??? Viral hepatitis B acute 03/04/2013 Past Medical History: Diagnosis Date ??? AAA (abdominal aortic aneurysm) [id number] angiogram; 3.2 cm infrarenal ??? Constipation ??? [...] (WRVU 6.99) performedby Regan Chen MD at [facility] MAIN OR ??? PRO EXPLORATION OF ABDOMEN N/A 04/26/2020 @EXPLORATORY LAPAROTOMY, WITH/WITHOUT BIOPSY(S) (WRVU 12.54) performed by Edwin Hwang MD at [facility] MAIN OR ??? PRO UPPER GI ENDOSCOPY, DIAGNOSTIC 01/20/2014 EGD, UPPER GI ENDOSCOPY performed by Corby Cano MD at [facility] ENDOSCOPY ??? PRO UPPER GI ENDOSCOPY, DIAGNOSTIC N/A 07/28/2017 EGD, UPPER GI ENDOSCOPY performed by Snow Liao MD at [facility] ENDOSCOPY ??? PRO VEIN BYPASS GRAFT, AORTOILIOFEMORAL N/A 09/07/2018 @BYPASS GRAFT, AORTOILIAC W\ VEIN CONDUIT (WRVU 41.88) performed by Isac Moody MD at [facility] MAIN OR ??? PRO VISCERAL AND INFRARENAL ABDOM AORTA ONE PROSTHESIS N/A 10/01/2021 @EVG REPAIR VISCERAL & INFRARENAL ABDML AORTA,FENESTRATED,ONE ARTERY,INC. S&I (WRVU 77.3) performed by Regan Trevizo MD at [facility] MAIN OR ??? VS ARTERIOGRAM RENAL VASCULAR SURGERY 08/01/2021 VS Arteriogram Renal Vascular Surgery 08/01/2021 Isac Moody MD [facility] INTERVENTIONL RAD Social History Tobacco Use ??? Smoking status: Former Smoker Packs/day: 0.50 Years: 45.00 Pack years: 22.50 Types: Cigarettes Quit date: 2007 Years since quittin.4 ??? Smokeless tobacco: Never Used ??? Tobacco comment: smoked for ~45 years up to 1 ppd at [place], quit ~1999 Substance Use Topics ??? Alcohol use: Yes Comment: a few glasses of wine, rarely 4 times a year Social History Substance and Sexual Activity Drug Use No No Known Allergies Medications: MAR and/or home medications have been reviewed. Physical Exam: Preprocedure Vitals Current as of 10/03/21 1154 BP: 160/75 Pulse: 83 Resp: 15 SpO2: 95 Temp: Height: 152.4 cm (5') (10/01/21) Weight: 45.9 kg (101 lb 3.2 oz) (10/01/21) BMI: 19.76 IBW: 45.5 kg (100 lb 4.9 oz) Last edited 10/03/21 1000 by MM Airway Assessment: Mallampati: II TM distance: >3 FB Neck ROM: full Cardiovascular Assessment: Rhythm: regular Rate: normal Pulmonary Assessment: breath sounds clear to auscultation Dental Assessment: (+) upper dentures Misc Assessment: Patient is wearing No contact(s). IV access: Peripheral line Last Filed Perioperative Cognitive Screening None Anesthesia Plan: ASA 3 MAC, with a(n) intravenous induction 70 yr old female s/p EVG repair of infrarenal AAA for flexible sigmoidoscopy. She developed abdominal distention post op. Mild pulmonary hypertension according to previous cardiac cath. PMH: CKD stage 5, CHF, htn. CBC Lab Results Component Value Date WBC 24.2 (H) 10/03/2021 Hemoglobin 11.7 10/03/2021 Hematocrit 35.3 (L) 10/03/2021 Platelets 142 (L) 10/03/2021 Lab Results Component Value Date Sodium 128 (L) 10/03/2021 Potassium Not Perf 10/03/2021 Chloride 92 (L) 10/03/2021 CO2 23 10/03/2021 BUN 33 (H) 10/03/2021 Creatinine 2.41 (H) 10/03/2021 Glucose Lvl 110 10/03/2021 Will need to use NS not LR for IV solution. SUMMARY: Echo 2019 ?? 1. The left ventricular chamber size is normal. There is normal global left ventricular systolic function with 3D EF of 59%, GLS= - 14% (GE E95), and no wall motion abnormalities. 2. The right ventricle is normal in size. Right ventricular global systolic function is normal. 3. The cardiac valves appear structurally and functionally normal. 4. The pericardium appears normal and there is no evidence of a pericardial effusion. 5. Compared to the images of Dec 2018, there has been recovery of LV Function NPO CBC Lab Results Component Value Date WBC 24.2 (H) 10/03/2021 Hemoglobin 11.7 10/03/2021 Hematocrit 35.3 (L) 10/03/2021 Platelets 142 (L) 10/03/2021 10/03/21 10/03/21 1415 0905 NA 131* 128* K 3.9 Not Perf CL 95* 92* CO2 24 23 BUN -- 33* CREATININE -- 2.41* GLUCOSE -- 110 Region - Other Informed Consent: Anesthetic plan and risks discussed with patient. Plan discussed with APPLIED PSYCHOLOGY PROFESSOR and attending. Anesthesia Screening documented in this encounter Plan of Treatment Scheduled Procedures Name Priority Associated Diagnoses Date/Time EGD, UPPER GI ENDOSCOPY Gastroesophageal reflux disease, esophagitis presence not specifi ed documented as of this encounter Visit Diagnoses Not on filedocumented in this encounter Administered Medications Inactive Administered Medications - up to 3 most recent administrations Medication Order MAR Action Action Date Dose Rate Site dexmedeTOMIDine (Precedex) (4 Given 10/03/2021 2:43 PM EDT 4 mcg mcg/mL) bolus injection (Anesthsia) Intravenous, PRN, Starting on Cinthia 10/03/21 at 1443, Until Cinthia 10/03/21 at 1527, Anesthesia Intra-op, Routine Given 10/03/2021 2:22 PM EDT 4 mcg lidocaine (pf) (Xylocaine) (20 mg/mL) 2% Given 10/03/2021 2:48 P M EDT 60 mg injection syringe Intravenous, PRN, Starting on Cinthia 10/03/21 at 1448, Until Cinthia 10/03/21 at 1527, Anesthesia Intra-op, Routine propofoL (Diprivan) 10 mg/mL bolus injection Given 3:11 PM EDT 20 mg (Anesthesia) Intravenous, PRN, Starting on Cinthia 10/03/21 at 1448, Until Cinthia 10/03/21 at 1527, Anesthesia Intra-op Given 10/03/2021 3:04 PM EDT 10 mg Given 10/03/2021 3:03 PM EDT 10 mg sodium chloride 0.9% infusion New Bag 10/03/2021 2:38 PM EDT Intravenous, CONTINUOUS PRN, Starting on Cinthia 10/03/21 at 1438, Until Cinthia 10/03/21 at 1527, Anesthesia Intra-op documented in this encounter Care Teams Cooler Worker Relationship Specialty Start Date End Date Sanjuanita Lee MD PCP - General 03/05/13 12/23/[address] [place] [place] [address] documented as of this encounter
--- OUTSIDE RECORDS SUMMARY | 2022-02-22 23:27 | XMS_ITS | Encounter Summary ---
:1950 Author Organization [facility] [place] [address] Care Team Providers Name Role Phone Sanjuanita [...] Expiration Date Visits Requ ested Visits Authorized [id number] 1 1 Encounter Details Date Type Department Care Team Description 10/03/2021 Surgery Gastroenterology at [facility] Silver Rossi, FLEXIBLE SIGMOIDOSCOPY [facility] [place] [address] [facility] [phone] CENTER GASTROENTEROLOGY DEPT. [place], [place] [address] Social History Tobacco Use Types [...] Sign Reading Time Taken Comments Blood Pressure 148/77 10/03/2021 2:00 PM EDT Pulse 85 10/03/2021 2:00 PM EDT Temperature 37.6 ??C (99.7 ??F) 10/03/2021 2:00 PM EDT Respiratory Rate 22 10/03/2021 2:00 PM EDT Oxygen Saturation 96% 10/03/2021 2:00 PM EDT Inhaled Oxygen Concentration - - [...] aortic endograft ?-Thoracic component - Cook Zenith Alpha??[id number]??via left groin ?- Visceral component - Cook Zenith Alpha??[id number]??via left groin ?- SMA -??10??x 39??mm??VBX, proximally flared??12??mm ?- Distal extension ?- Nadia [id number] main body, left ?-??Nadia [id number] right limbextension Patent bilateral hypogastric artery Good [...] duplex. Will have creatinine check with PCP inone week and creatinine check on morning of scheduled [...] 10/30/2021 7:00 AM LAB, THREE L Lab [address] [place] [address] Arrive at: Brake Tester Area [phone] 10/30/2021 7:30 AM Lola Willoughby RVT Vascular Lab at [facility] Arrive at: Brake Tester Area [phone] 10/30/2021 9:15 AM [facility] CT [address] CT Scan at [facility] Arrive at: RADIOLOGY [phone] Please arrive at the Lab 1 Hour and 15 Minutes prior to your scheduled time if your labs need to betaken. 10/30/2021 10:00 AM eHladio Rowe RVT Vascular Lab at [facility] Arrive at: Brake Tester Area [phone] 10/30/2021 1:00 PM Greyson Silvreman MD Vascular Surgery at [facility] Arrive at: Brake Tester Area 3V [phone] 11/28/2021 10:40 AM LAB, THREE L Lab [facility] Arrive at: Brake Tester Area 3L [phone] 11/28/2021 11:20 AM Cloth DesignerBenjamin; Tyron Kemp MD Nephrology Hypertension at [facility] Arrive at: Brake Tester Area [phone] Future Orders Complete By Expires AAA Duplex, Complete/Bilateral [VAS51 Custom] 11/06/2021 (Approximate) 05/08/2022 Process Instructions: There is no in-house vascular laborer starch factory available on weeknights (5pm-8am), weekends, or holidays. IF THIS IS A REQUEST FOR AN EMERGENT STUDY DURING THOSE HOURS, please have the senior provider responsible for the patient page the Vascular Surgery Fellow/Senior Resident second officer to discuss options. Scheduling Instructions: Questions: Indication for study/signs & symptoms: [place] PMEG Question to be answered: aorta with endoleak? Preferred location?: [facility] Creatinine [LAB66 Custom] 11/06/2021 05/08/2022 Process Instructions: Scheduling Instructions: Comments: Questions: CT Chest Abdomen Pelvis w Contrast (Generic) [FTF9372 Custom] 11/06/2021 05/08/2022 Process Instructions: Scheduling Instructions: Questions: Clinical information / burgess questions for radiologist: NON CONTRAST ONLY Where will study be performed?: [facility] Radiology Stat read required?: Does patient require sedation?: GA rationale: Date of injury if applicable: Duplex Study Visceral Arteries, Comp [VAS54 Custom] 11/06/2021 (Approximate) 05/08/2022 Process Instructions: There is no in-house vascular laborer starch factory available on weeknights (5pm-8am), weekends, or holidays. IF THIS IS A REQUEST FOR AN EMERGENT STUDY DURING THOSE HOURS, please have the senior provider responsible for the patient page the Vascular Surgery Fellow/Senior Resident second officer to discuss options. Scheduling Instructions: Questions: Indication for study/signs & symptoms: SMA artery with PMEG Dr. Silverman Question to be answered: patent? stenosis? Preferred location?: [facility] Renal Artery Duplex, Unil [VAS48 Custom] 11/06/2021 05/08/2022 Process Instructions: There is no in-house vascular laborer starch factory available on weeknights (5pm-8am), weekends, or holidays. IF THIS IS A REQUEST FOR AN EMERGENT STUDY DURING THOSE HOURS, please have the senior provider responsible for the patient page the Vascular Surgery Fellow/Senior Resident second officer to discuss options. Scheduling Instructions: Questions: Laterality: Right Indication for study/signs & symptoms: s/p PMEG Question to be answered: right renal artery bypass with PMEG Preferred location?: [facility] Anticoagulation & Antiplatelet: Anticoagulation: none Antiplatelet: Agent: ASA Indication: ASCVD Intended Duration: assisted For questions regarding these medications, please contact: [...] Discharge: Patient Instructions You were admitted to [facility] after having your aortic aneurysm repaired with [...] For any problems or questions please call [phone] For issues on weeknights after 5pm and weekends please call [phone] and ask for the Vascular Fellow second officer. documented in this encounter Discharge Instructions Patient InstructionsCandida Velez APRN - 10/04/2021 10:22 AM EDT You were admitted to [facility] after having your aortic aneurysm repaired with [...] For any problems or questions please call [phone] For issues on weeknights after 5pm and weekends please call [phone] and ask for the Vascular Fellow second officer. documented in this encounter Medications at Time [...] Please see flowsheet for full assessment. Geri Curran OT - 10/07/2021 12:59 PM EDT Occupational Therapy Evaluation Patient Profile: Pretty Walld??is a 70 y.o.??female??now s/p PMEG with 1 vessel fenestration (SMA) on10/01, currently recovering well. ?? Past Medical History Past Medical History: Diagnosis Date ??? AAA (abdominal aortic aneurysm) ? [id number] angiogram; 3.2 cm infrarenal ??? Constipation ? Dyslipidemia ? Hypertension ? Insomnia ? Peripheral vascular disease ? Renal artery stenosis ? R; per 2010 angiogram ??? SBO (small bowel obstruction) ? [...] been seen for occupational therapy evaluation. Pretty Harmon presents with the following performance skill deficits [...] outcome. 15 minutes; evaluation Bella Curran OT #[id number] YT Elma Saab, PT - 10/07/2021 9:01 AM EDT Images from the original note were not included. Physical Therapy Evaluation Patient profile: Pretty Harmon is a 70 y.o. female now s/p PMEG with 1 vessel fenestration (SMA) on 10/01, currently recovering well. Patient with the following active problems: Past Medical History: Diagnosis Date ??? AAA (abdominal aortic aneurysm) [id number] angiogram; 3.2 cm infrarenal ??? Constipation ??? [...] (WRVU 6.99) performedby Greyson Chen MD at [facility] MAIN OR ??? PRO EXPLORATION OF ABDOMEN N/A 04/26/2020 @EXPLORATORY LAPAROTOMY, WITH/WITHOUT BIOPSY(S) (WRVU 12.54) performed by Edwin Hwang MD at [facility] MAIN OR ??? PRO SIGMOIDOSCOPY, DIAGNOSTIC N/A 10/03/2021 FLEXIBLE SIGMOIDOSCOPY performed by Silver Rossi MD at [facility] ENDOSCOPY ??? PRO UPPER GI ENDOSCOPY, DIAGNOSTIC 01/20/2014 EGD, UPPER GI ENDOSCOPY performed by Corby Cano MD at [facility] ENDOSCOPY ??? PRO UPPER GI ENDOSCOPY, DIAGNOSTIC N/A 07/28/2017 EGD, UPPER GI ENDOSCOPY performed by Snow Liao MD at [facility] ENDOSCOPY ??? PRO VEIN BYPASS GRAFT, AORTOILIOFEMORAL N/A 09/07/2018 @BYPASS GRAFT, AORTOILIAC W\ VEIN CONDUIT (WRVU 41.88) performed by Isac Moody MD at [facility] MAIN OR ??? PRO VISCERAL AND INFRARENAL ABDOM AORTA ONE PROSTHESIS N/A 10/01/2021 @EVG REPAIR VISCERAL & INFRARENAL ABDML AORTA,FENESTRATED,ONE ARTERY,INC. S&I (WRVU 77.3) performed by Greyson Silverman MD at [facility] MAIN OR ??? VS ARTERIOGRAM RENAL VASCULAR SURGERY 08/01/2021 VS Arteriogram Renal Vascular Surgery 08/01/2021 Isac Moody MD [facility] INTERVENTIONL RAD Social History: Patient lives with [...] mobility recommendations discussed with nursing. Assessment: Pretty Hamron was seen today for physical therapy evaluation [...] Specialist in Neurologic Physical Therapy Inpatient/outpatient Rehab [facility] Candida Velez APRN - 10/06/2021 6:52 [...] Vascular: Palpable DP/PT bilaterally Labs Recent Labs 10/06/2131410/05/21 0100 10/04/21 0120 WBC 15.5* 22.4* 26.8* HGB 9.3* 8.4* 10.2* HCT 27.3* 25.3* 31.6* PLATELET 210 154 153 Recent Labs 10/06/2131410/05/21 0100 10/04/21 0120 NA 134* 130* 131* K 3.7 4.1 3.7 CL 97* 95* 95* CO2 23 25 22 BUN 42* 39* 34* CREATININE 2.76* 2.54* 2.47* GLUCOSE 91 108 90 Recent Labs 10/03/21 0115 AST 58* ALT [...] hours. Recent Labs 10/01/21 0939 PHART 7.38 [id number] 41 PO2ART 276* [id number] 23.3 Vascular Studies None pertinent Problem List [...] [facility] Candida Velez APRN Vascular Surgery Pager: [phone] 10/06/21 Arabella Walden MD - 10/05/2021 7:49 [...] hours. Recent Labs 10/01/21 0939 PHART 7.38 [id number] 41 PO2ART 276* [id number] 23.3 Vascular Studies None pertinent Problem List [...] [facility] Arabella Walden MD Vascular Surgery Pager: [phone] 10/05/21 Bry Valentin MD - 10/04/2021 9:17 [...] %] 24-Hour Ins and Outs (I/O) 10/03 0701 - 10/04 0700 In: 1496 [P.O.:760; I.V.:736] [...] and PT pulses bilaterally Labs Recent Labs 10/04/21 0120 10/03/21 0910/03/21 0115 WBC 26.8* 24.2* 23.3* HGB 10.2* 11.7 11.2* HCT 31.6* 35.3* 33.9* PLATELET 153 142* 159 Recent Labs 10/04/21 0120 10/03/21 1415 10/03/21 0905 10/03/21 0115 NA 131* 131* 128* 130* K 3.7 3.9 Not Perf 4.0 CL 95* 95* 92* 92* CO2 24 23 25 BUN 34* -- 33* 31* CREATININE 2.47* -- 2.41* 2.37* GLUCOSE 90 -- 110 124 Recent Labs 10/03/21 0115 AST 58* ALT 27 ALKPHOS 75 BILITOT 0.4 BILIDIR 0.1 Recent Labs 10/04/21 01210/03/21 0905 10/03/21 0115 10/02/21 0030 CALCIUM 8.3* 8.4* 8.2* 8.1* PHOS -- -- 3.6 4.1 MAGNESIUM -- -- 1.23* 0.77 No results for input(s): PT, PTT, INR in the last 168 hours. Recent Labs 10/01/21 0939 PHART 7.38 [id number] 41 PO2ART 276* ESQ4WLC 23.3 Vascular Studies None pertinent Problem List [...] regimen Bry Valentin MD Vascular Surgery Pager: [phone] 10/04/21 Lianna Harrison RN - 10/03/2021 3:29 [...] 30% in 2019, recovered to 59% in 2019), hypothyroidism, and [...] %] 24-Hour Ins and Outs (I/O) 10/02 700 - 10/03 07 In: 2374 [P.O.:2049; I.V.:325] Out: 2034 [Urine:2034] ?? Physical [...] (I/O) 10/02 07 - 10/03 0700 In: 2374 [P.O.:2049; I.V.:325] Out: 2034 [Urine:2034] Physical Exam [...] and PT pulses bilaterally Labs Recent Labs 10/03/2111410/02/21 0030 10/01/21 1720 WBC 23.3* 13.2* 12.2* HGB 11.2* 10.6* 11.7 HCT 33.9* 31.8* 35.8 PLATELET 159 180 212 Recent Labs 10/03/2111410/02/21 0030 10/01/21 0730 NA 130* 136 137 [...] hours. Recent Labs 10/01/21 0939 PHART 7.38 [id number] 41 PO2ART 276* QQS5FXV 23.3 Vascular Studies None pertinent Problem List [...] Dr. 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 as calculated from the following: Height as of this encounter: 152.4 cm (5'). Weight as of this encounter: 45.9 kg (101 lb 3.2 oz). [place] Body Weight: 45.5 kg Usual Body Weight: [...] line): None present Lean muscle loss to Congregational region (temporalis muscle): None present Clavicle bone [...] inpatient Thank you, KAREN HAWKINS RD Pager #:[phone] Greyson Chase APRN - 10/02/2021 1:04 PM EDT ICU Transfer Note DOA: 10/01/2021 Diet: Regular diet Code: Attempt Cardiopulmonary Resuscitation - Inpatient Room: [facility] ID: Pretty Harmon is a 70 y.o. [...] %] 24-Hour Ins and Outs (I/O) 10/01 0701 - 10/02 0700 In: 2716 [P.O.:160; I.V.:2556] Out: 1798 [Urine:1665] [...] hours. Recent Labs 10/01/21 0939 PHART 7.38 [id number] 41 PO2ART 276* [id number] 23.3 Vascular Studies None pertinent Problem List [...] SICU Fili Woodward MD Vascular Surgery Pager: [phone] 10/02/21 Candida Gar RN - 10/02/2021 3:00 AM EDT OUTCOME [...] postoperatively Fili Woodward MD Vascular Surgery Pager: [phone] 06/07/22 documented in this encounter H&P Notes Shahbaz [...] chart. Shahbaz Moses MD PGY-5, Gastroenterology Greyson Chase APRN - 10/01/2021 12:51 PM EDT Critical Care [...] Diagnosis Date ??? AAA (abdominal aortic aneurysm) [id number] angiogram; 3.2 cm infrarenal ??? Constipation ??? [...] (WRVU 6.99) performedby Greyson Chen MD at [facility] MAIN OR ??? PRO EXPLORATORY OF ABDOMEN N/A 04/26/2020 @EXPLORATORY LAPAROTOMY, WITH/WITHOUT BIOPSY(S) (WRVU 12.54) performed by Edwin Hwang MD at [facility] MAIN OR ??? PRO UPPER GI ENDOSCOPY, DIAGNOSTIC 01/20/2014 EGD, UPPER GI ENDOSCOPY performed by Corby Cano MD at [facility] ENDOSCOPY ??? PRO UPPER GI ENDOSCOPY, DIAGNOSTIC N/A 07/28/2017 EGD, UPPER GI ENDOSCOPY performed by Snow Liao MD at [facility] ENDOSCOPY ??? PRO VEIN BYPASS GRAFT, AORTOILIOFEMORAL N/A 09/07/2018 @BYPASS GRAFT, AORTOILIAC W\ VEIN CONDUIT (WRVU 41.88) performed by Isac Moody MD at [facility] MAIN OR ??? VS ARTERIOGRAM RENAL VASCULAR SURGERY 08/01/2021 VS Arteriogram Renal Vascular Surgery 08/01/2021 Isac Moody MD [facility] INTERVENTIONL RAD Prior To Admission Medications: Medications [...] mg/mL) injection ??? PHENYLephrine in NS (PF) (JUNAID-SYNEPHRINE) 0.8 mg/10 mL (80 mcg/mL) multi- dose [...] up to 1 ppd at max, quit ~2000 Vaping Use ??? Vaping Use: Never used [...] Rodolfo of 50 years. 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 No history of heavy etoh [...] Value Ref Range T&S only valid at [facility] BLOOD GAS 2 ARTERIAL Result Value [...] ICU, Critical Care Red 1 Greyson Chase, SUPERVISOR ACCOUNTING CLERKS 10/01/2021 Associated attestation - Ilana Atwood MD [...] hours. Remainder of plan as below. Ilana Atwood MD This note was partially written using [...] Diagnosis Date ??? AAA (abdominal aortic aneurysm) [id number] angiogram; 3.2 cm infrarenal ??? Constipation ??? [...] (WRVU 6.99) performedby Greyson Chen MD at [facility] MAIN OR ??? PRO EXPLORATORY OF ABDOMEN N/A 04/26/2020 @EXPLORATORY LAPAROTOMY, WITH/WITHOUT BIOPSY(S) (WRVU 12.54) performed by Edwin Hwang MD at [facility] MAIN OR ??? PRO UPPER GI ENDOSCOPY, DIAGNOSTIC 01/20/2014 EGD, UPPER GI ENDOSCOPY performed by Corby Cano MD at [facility] ENDOSCOPY ??? PRO UPPER GI ENDOSCOPY, DIAGNOSTIC N/A 07/28/2017 EGD, UPPER GI ENDOSCOPY performed by Snow Liao MD at [facility] ENDOSCOPY ??? PRO VEIN BYPASS GRAFT, AORTOILIOFEMORAL N/A 09/07/2018 @BYPASS GRAFT, AORTOILIAC W\ VEIN CONDUIT (WRVU 41.88) performed by Isac Moody MD at [facility] MAIN OR ??? VS ARTERIOGRAM RENAL VASCULAR SURGERY 08/01/2021 VS Arteriogram Renal Vascular Surgery 08/01/2021 Isac Moody MD [facility] INTERVENTIONL RAD Functional Status/Social Hx: Lives at [...] right kidney is patent. Assessment and Plan: Pretty Harmon is a 70 year old [...] Type: *No Product type* / Secondary Insurance: [employer] [place] Prescription Coverage: Yes This plan was formulated with input from patient and team. All are in agreement with plan. Valeria HARMAN RN Phone: [phone] Pager: [phone] Plan of Care - Eliza Casey RN [...] ADLs]: Eyes on Surveillance [continuous indirect monitoring]: aliyah purposeful rounding Patient-specific fall prevention interventions for [...] Type: *No Product type* / Secondary Insurance: [facility] [place] Last Physical Therapy Recommendation: with Last [...] as indicated. Anticipated Date of Discharge: Valeria HARMAN, RN CM Phone: [phone] Pager: [phone] Plan of Care - Eliza Casey RN [...] Operative Note Patient Name: Pretty Harmon : [id number] MR#: [id number] Case Date: 10/03/2021 Surgeon: Surgeon(s) and Role: [...] NAME: Pretty Harmon : 1950 HPI: Ms. Harmon is a 70-year-old woman with a thoracoabdominal [...] Diagnosis Date ??? AAA (abdominal aortic aneurysm) [id number] angiogram; 3.2 cm infrarenal ??? Constipation ??? [...] (WRVU 6.99) performedby Greyson Chen MD at [facility] MAIN OR ??? PRO EXPLORATION OF ABDOMEN N/A 04/26/2020 @EXPLORATORY LAPAROTOMY, WITH/WITHOUT BIOPSY(S) (WRVU 12.54) performed by Edwin Hwang MD at [facility] MAIN OR ??? PRO UPPER GI ENDOSCOPY, DIAGNOSTIC 01/20/2014 EGD, UPPER GI ENDOSCOPY performed by Corby Cano MD at [facility] ENDOSCOPY ??? PRO UPPER GI ENDOSCOPY, DIAGNOSTIC N/A 07/28/2017 EGD, UPPER GI ENDOSCOPY performed by Snow Liao MD at [facility] ENDOSCOPY ??? PRO VEIN BYPASS GRAFT, AORTOILIOFEMORAL N/A 09/07/2018 @BYPASS GRAFT, AORTOILIAC W\ VEIN CONDUIT (WRVU 41.88) performed by Isac Moody MD at [facility] MAIN OR ??? PRO VISCERAL AND INFRARENAL ABDOM AORTA ONE PROSTHESIS N/A 10/01/2021 @EVG REPAIR VISCERAL & INFRARENAL ABDML AORTA,FENESTRATED,ONE ARTERY,INC. S&I (WRVU 77.3) performed by Greyson Silverman MD at [facility] MAIN OR ??? VS ARTERIOGRAM RENAL VASCULAR SURGERY 08/01/2021 VS Arteriogram Renal Vascular Surgery 08/01/2021 Isac Moody MD [facility] INTERVENTIONL RAD SOCIAL HX: Social History Socioeconomic [...] ~45 years up to 1 ppd at [place], quit ~2000 Vaping Use ??? Vaping Use: Never used [...] Rodolfo of 50 years. 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 No history of heavy etoh [...] [10-23] SpO2 SpO2: [84 %-100 %] 10/02 0701 - 10/03 0700 In: 2375 [P.O.:2049; I.V.:325] Out: 2034 [Urine:2034] Wt Last [...] Aniogram Image Storage Only Final Result ENDOSCOPY: [place] (06/2019): Sigmoid diverticulosis ASSESSMENT & PLAN: Abdominal [...] them as documented. Silver Rossi MD, MS flow machine operator Automatic Tire Tester, Gastroenterology and Hepatology Plan of Care - [...] COVID test: Lab Results Component Value Date [id number] Not Detected 10/01/2021 Past medical History: Past Medical History: Diagnosis Date ??? AAA (abdominal aortic aneurysm) [id number] angiogram; 3.2 cm infrarenal ??? Constipation ??? [...] Current DME: none Home Address confirmed as: [address] [phone] [place] [address] Social & Family Supports: All names listed below confirmed with patient as current and correct Extended Emergency Contact Information Primary Emergency Contact: Rodolfo Harmon Address: [address] [address] [facility] Relation: Spouse Secondary Emergency Contact: Mary Harmon Address: [address] [place] [address] [facility] Relation: Child Current Care Provided by: [...] up to 1 ppd at max, quit ~2000 0 No problems reported 1-2 Low level [...] Type: *No Product type* / Secondary Insurance: [facility] Prescription Coverage: Yes Preferred Pharmacy: [id number] - [place], [place] - [address] [place] [address] [place] Status: Patient is a : No Primary Care Provider: Sanjuanita Lee MD [phone] Patient/Caregiver Goals of Treatment: I have had [...] transition of care planning. Rosalia Serrano RN [facility] Phone [phone] Pager [phone] Brief Op Note - Stephanie Cevallos MD - 10/01/2021 5:59 PM EDT Brief Operative Note Patient Name: Pretty Harmon : [id number] MR#: [id number] Case Date: 10/01/2021 Surgeon: Surgeon(s) and Role: [...] endograft -Thoracic component - Cook Zenith Alpha [id number] via left groin ?- Visceral component - Cook Zenith Alpha??[id number] via left groin ?- SMA -??10 x 39 mm VBX, proximally flared 12 mm - Distal extension - Jasper [id number] main body, left - Jasper [id number] right limb extension Patent bilateral hypogastric artery Good hemostasis with bilateral pre-close technique (right x 2, left x 2). Bilateral??warm feet with??palpable DP/PT bilaterally Neuro exam normal at the completion of the case. Patient moving all four extremities to command. ?? Op Note - Stephanie Cevallos MD - 10/01/2021 9:42 AM EDT [facility] Operative Note Patient Name: Pretty Harmon : [id number] MR#: [id number] Case Date: 10/01/2021 Surgeon: Surgeon(s) and Role: [...] endograft -Thoracic component - Cook Zenith Alpha [id number] via left groin ?- Visceral component - Cook Zenith Alpha??[id number] via left groin ?- SMA -??10 x 39??mm VBX, proximally flared 12??mm ?- Distal extension ?- Jasper [id number] main body, left ?- Jasper [id number] right limb extension Patent bilateral hypogastric artery [...] with a PTFE sealing ring along with a??scammon bay coil, which were sewn circumferentially to the [...] balloon. Distally the Cook endografts wereextended with??the Jasper Excluder as above via the left side. [...] artery bilaterally. The proximal portion of the Jasper Excluder and all iliac overlap zones was ballooned with a MOB balloon on both sides. Two Straughn balloons, in a kissing fashion, were used [...] Routine 10/01/2021 11:35 Resul ts for this ([facility]) AM EDT procedure are in the results section. BLOOD GAS 2 ARTERIAL Routine 10/01/2021 9:39 AM R esults for this EDT procedure are i n the results section. IR OR VASC ANGIOGRAM Routine 10/01/2021 8:51 AM R esults for this IMAGE STORAGE ONLY EDT procedure are in the results section. TYPE AND SCREEN Routine 10/01/2021 7:30 AM [...] Component Value Ref Test Analysis Performed At [facility] Audio Range Method Time Signature VB Text Department: Vascular Surgery Lab VASCUBASE Report Patient: [id number] (PRETTY HARMON) CPT: 36566 Referring Physician: CANDIDA VELEZ ?? Indications: ??hx [...] Laterality 10/30/2021 10:07 AM EDT Candida Velez APRN VASCULAR ORDERABLES [...] thoracoabdominal aortic endograft. Decreased size of infrarenal beaver abdominal aortic aneur ysm sac dimensions. Thank you for letting us participate in the care of this patient. ??If you are a health care provider and have any questi ons regarding this report, please contact the number below. ??For patients who have questions please contact the health client care representative that requested your imaging first. ? Narrative [...] Decreased size of infrarenal abdominal a ortic beaver aneurysm sac, measuring approximately 3.6 x 4.1 [...] Decreased size of infrarenal abdominal a ortic beaver aneurysm sac, measuring approximately 3.6 x 4.1 [...] a ortic endograft. Decreased size of infrarenal beaver abdominal aortic aneur ysm sac dimensions. Thank you for letting us participate in the care of this patient. If you are a health care provider and have any questi ons regarding this report, please contact the number below. For patients w ho have questions please contact the health client care representative that requested your imaging first. Electronically signed by: Brent torre MD, [facility] ([phone]), at 10/30/2021 11:07 AM Domingo Coy MD IM CT ORDERABLES AAA Duplex, Complete/Bilateral (10/30/2021 7:32 AM EDT) Component Value Ref Test Analysis Performed At [facility] Range Method Time Signature VB Text Department: Vascular Surgery Lab VASCUBASE Report Patient: [id number] (PRETTY HARMON) CPT: 14016 Referring Physician: CANDIDA VELEZ ?? Indications: s/p [...] Component Value Ref Test Analysis Performed At [facility] Range Method Time Signature VB Text Department: Vascular Surgery Lab VASCUBASE Report Patient: [id number] (PRETTY HARMON) CPT: 86843 Referring Physician: CANDIDA VELEZ ?? Indications: history [...] (10/30/2021 7:03 AM EDT) Analysis Performed At [facility] logist Time Signature Creatinine 3.04 (H) 0.70 - [facility] 1.20 mg/dL [facility] Estimated GFR 16 (L) >=60 [facility] mL/min/1.[address]? [facility] Comment: This patient's estimated GFR was [...] Organization Address City/State/[place] [address] (ABNORMAL) Differential, Automated (10/07/2021 6:36 AM EDT) Patholo gist Method Time Signature Neutrophils % 61.1 % [facility] LABORATORY Neutr Abs (ANC) 7.16 (H) 1.70 - [facility] [address] [facility] x10(3)/[facility] L LABORATORY Lymphocytes % 13.2 % [facility]OR[facility] Lymphocytes Abs 1.6 0.9 - 3.2 [facility] x10(3)/[facility] LABORATORY Monocytes % 14.7 % [facility]OR[facility] Monocyte Abs 1.7 (H) 0.3 - 0.9 [facility] x10(3)/[facility] LABORATORY Eosinophils % 6.3 % [facility] Eosinophils Abs 0.7 (H) 0.0 - 0.4 [facility] x10(3)/[facility] LABORATORY Basophils % 0.7 % [facility] Basophils Abs 0.1 0.0 - 0.1 [facility] x10(3)/[facility] LABORATORY Immature Gran % 4.00 % [facility] Comment: Immature granulocytes(IG's)percentage an d absolute count will include metamyelocytes, myelocytes, and promyelo cytes. Blood smears from CBCs yielding IG's will be scanned manually for concor dance. If this scan disagrees with the automated IG or if promyelocytes are not ed, a manual differential will be performed. Blanca Gran Abs 0.47 (H) 0.00 - 0.04 x10(3)/[facility] LABORATORY Specimen Anatomical Collection Method Collection Time Receive d Time (Source) Location / / Volume Laterality Blood 10/07/2021 6:36 AM 7:21 EDT AM EDT Resulting Agency Comment Spec In Lab Fili Woodward MD HEMATOLOGY ORDERABLES Performing Organization Address City/State/[place] [address] (ABNORMAL) Hemogram (10/07/2021 6:36 AM EDT) [facility] Method Time Signature WBC 11.7 (H) 4.0 - 9.5 [facility] x10(3)/[facility] LABORATORY RBC 3.88 (L) 4.00 - [facility] 5.[address] [facility] x10(6)/[facility] LABORATORY Hemoglobin 10.0 (L) 11.7 - [facility] 15.5 g/dL [facility] LABORATORY Hematocrit 30.4 (L) 35.7 - [facility] 45.8 % [facility] LABORATORY MCV 78.4 (L) 82.6 - [facility] 94.4 [facility] LABORATORY MCH 25.8 (L) 27.1 - [facility] 32.0 pg [facility] LABORATORY MCHC 32.9 31.7 - [facility] g/dL [facility] LAB[facility]ORY Platelets 272 145 - 357 [facility] x10(3)/[facility] LABORATORY RDWSD 50.4 (H) 37.0 - [facility] 46.0 [facility] LABORATORY RDWCV 17.6 (H) 11.5 - [facility] 14.1 % [facility] LABORATORY MPV 11.6 7.6 - 12.9 [facility] LABORATORY nRBC % Auto 0.2 % [facility] LABORATORY nRBC Abs Auto 0.020 (H) 0.000 - [facility] 0.[address] [facility] x10(3)/[facility] LABORATORY Specimen Anatomical Collection Method Collection Time Receive d Time (Source) Location / / Volume Laterality Blood 10/07/2021 6:36 AM 7:21 EDT AM EDT Resulting Agency Comment Spec In Lab Fili Woodward MD HEMATOLOGY ORDERABLES Performing Organization Address City/State/[place] [address] (ABNORMAL) Basic Metabolic Panel (non-fasting) (10/07/2021 6:36 AM EDT) P athologist Signature Glucose Lvl 91 65 - 199 [facility] mg/dL [facility] LABORATORY Comment: Diabetes: >=200 mg/dL plus symp toms BUN 43 (H) 8 - 18 mg/dL [facility] LABORATORY Creatinine 2.41 (H) 0.70 - 1.20 mg/dL [facility] LABORATORY Sodium 132 (L) 135 - 145 mmol/L [facility] LABORATORY Potassium 3.5 3.5 - 5.0 mmol/L [facility] LABORATORY Comment: Please note: ??Patients with WBC >100,00 0 may have falsely elevated Potassium levels. ??For accurate Potassium quantif ication in these patients send serum separator tube (gold top) for subsequent determinations. ??Contact the Clinical Chemistry Laboratory if there are any qu estions. Chloride 95 (L) 98 - 107 mmol/L [facility] LABORATORY CO2 20 (L) 22 - 31 mmol/L [facility] LABOR[facility]ORY Anion Gap 17 (H) 5 - 15 mmol/L [facility] LABORATORY Calcium 8.3 (L) 8.5 - 10.5 mg/dL [facility] LABORATORY Estimated GFR 19 (L) >=60 mL/min/1.73 m?? [facility] LABOR[facility] Comment: This patient? s estimated [...] Organization Address City/State/[place] [address] (ABNORMAL) Differential, Automated (10/06/2021 3:15 AM EDT) [facility] Method Time Signature Neutrophils % 76.0 % [facility] LABORATORY Neutr Abs (ANC) 11.80 (H) 1.70 - [facility] 6.[address] [facility] x10(3)/[facility] L LABORATORY Lymphocytes % 8.4 % [facility] LABORATORY Lymphocytes Abs 1.3 0.9 - 3.2 [facility] x10(3)/[facility] LABORATORY Monocytes % 10.2 % [facility] LABORATORY Monocyte Abs 1.6 (H) 0.3 - 0.9 [facility] x10(3)/[facility] LABORATORY Eosinophils % 4.2 % [facility] LABORATORY Eosinophils Abs 0.7 (H) 0.0 - 0.4 [facility] x10(3)/[facility] LABORATORY Basophils % 0.3 % [facility] LABORATORY Basophils Abs 0.0 0.0 - 0.1 [facility] x10(3)/[facility] LABORATORY Immature Gran % 0.90 % [facility] LABORATORY Comment: Immature granulocytes(IG's)percentage an d absolute count will include metamyelocytes, myelocytes, and promyelo cytes. Blood smears from CBCs yielding IG's will be scanned manually for concor dance. If this scan disagrees with the automated IG or if promyelocytes are not ed, a manual differential will be performed. Blanca Gran Abs 0.14 (H) 0.00 - 0.04 x10(3)/[facility] LABORATORY Specimen Anatomical Collection Method Collection Time Receive d Time (Source) Location / / Volume Laterality Blood 10/06/2021 3:15 AM 2 3:19 EDT AM EDT Resulting Agency Comment Spec In Lab Fili Woodward MD HEMATOLOGY ORDERABLES Performing Organization Address City/State/[place] [address] (ABNORMAL) Hemogram (10/06/2021 3:15 AM EDT) Analysis Performed At Patho logist Time Signature WBC 15.5 (H) 4.0 - 9.5 [facility] x10(3)/[facility] LABORATORY RBC 3.44 (L) 4.00 - [facility] 5.[address] [facility] x10(6)/[facility] LABORATORY Hemoglobin 9.3 (L) 11.7 - [facility] 15.5 g/dL [facility] LABORATORY Hematocrit 27.3 (L) 35.7 - [facility] 45.8 % [facility] LABORATORY MCV 79.4 (L) 82.6 - [facility].4 [facility] LABORATORY MCH 27.0 (L) 27.1 - [facility] 32.0 pg [facility] LABORATORY MCHC 34.1 31.7 - [facility] 35.[facility] g/dL [facility] LABORATORY Platelets 210 145 - 357 [facility] x10(3)/[facility] LABORATORY RDWSD 51.3 (H) 37.0 - [facility] 46.0 [facility] LABORATORY RDWCV 17.7 (H) 11.5 - [facility] 14.1 % [facility] LABORATORY MPV 10.6 7.6 - 12.9 [facility] LABORATORY nRBC % Auto 0.0 % [facility] LABORATORY nRBC Abs Auto 0.000 0.000 - [facility] 0.[address] [facility] x10(3)/[facility] LABORATORY Specimen Anatomical Collection Method Collection Time Receive d Time (Source) Location / / Volume Laterality Blood 10/06/2021 3:15 AM 2 3:19 EDT AM EDT Resulting Agency Comment Spec In Lab Fili Woodward MD HEMATOLOGY ORDERABLES Performing Organization Address City/State/[place] [address] (ABNORMAL) Basic Metabolic Panel (non-fasting) (10/06/2021 3:15 AM EDT) P athologist Signature Glucose Lvl 91 65 - 199 [facility] mg/dL [facility] LABORATORY Comment: Diabetes: >=200 mg/dL plus symp toms BUN 42 (H) 8 - 18 mg/dL [facility] LABORATORY Creatinine 2.76 (H) 0.70 - 1.20 mg/dL [facility] LABORATORY Sodium 134 (L) 135 - 145 mmol/L [facility] LABORATORY Potassium 3.7 3.5 - 5.0 mmol/L [facility] LABORATORY Comment: Please note: ??Patients with WBC >100,00 0 may have falsely elevated Potassium levels. ??For accurate Potassium quantif ication in these patients send serum separator tube (gold top) for subsequent determinations. ??Contact the Clinical Chemistry Laboratory if there are any qu estions. Chloride 97 (L) 98 - 107 mmol/L [facility] LABORATORY CO2 23 22 - 31 mmol/L [facility] LABORATORY Anion Gap 14 5 - 15 mmol/L [facility] LABORATORY Calcium 8.1 (L) 8.5 - 10.5 mg/dL [facility] LABORATORY Estimated GFR 16 (L) >=60 mL/min/1.73 m?? [facility] Comment: This patient? s estimated [...] Organization Address City/State/[place] [address] (ABNORMAL) Differential, Automated (10/05/2021 1:00 AM EDT) [facility] Method Time Signature Neutrophils % 80.7 % [facility] LABORATORY Neutr Abs (ANC) 18.09 (H) 1.70 - [facility] 6.[address] [facility] x10(3)/[facility] L LABORATORY Lymphocytes % 5.9 % [facility] LABORATORY Lymphocytes Abs 1.3 0.9 - 3.2 [facility] x10(3)/[facility] LABORATORY Monocytes % 9.7 % [facility] LABORATORY Monocyte Abs 2.2 (H) 0.3 - 0.9 [facility] x10(3)/[facility] LABORATORY Eosinophils % 2.2 % [facility] LABORATORY Eosinophils Abs 0.5 (H) 0.0 - 0.4 [facility] x10(3)/[facility] LABORATORY Basophils % 0.2 % [facility] LABORATORY Basophils Abs 0.0 0.0 - 0.1 [facility] x10(3)/[facility] LABORATORY Immature Gran % 1.30 % [facility] LABORATORY Comment: Immature granulocytes(IG's)percentage an d absolute count will include metamyelocytes, myelocytes, and promyelo cytes. Blood smears from CBCs yielding IG's will be scanned manually for concor dance. If this scan disagrees with the automated IG or if promyelocytes are not ed, a manual differential will be performed. Blanca Gran Abs 0.30 (H) 0.00 - 0.04 x10(3)/[facility] LABORATORY Specimen Anatomical Collection Method Collection Time Receive d Time (Source) Location / / Volume Laterality Blood 10/05/2021 1:00 AM 1:12 EDT AM EDT Resulting Agency Comment Spec In Lab Fili Woodward MD HEMATOLOGY ORDERABLES Performing Organization Address City/State/[place] [address] (ABNORMAL) Hemogram (10/05/2021 1:00 AM EDT) Analysis Performed At Patho logist Time Signature WBC 22.4 (H) 4.0 - 9.5 [facility] x10(3)/[facility] LABORATORY RBC 3.17 (L) 4.00 - [facility] 5.[address] [facility] x10(6)/[facility] LABORATORY Hemoglobin 8.4 (L) 11.7 - [facility] 15.5 g/dL [facility] LABORATORY Hematocrit 25.3 (L) 35.7 - [facility] 45.8 % [facility] LAB[facility]ATORY MCV 79.8 (L) 82.6 - [facility] LABORATORY MCH 26.5 (L) 27.1 - [facility] 32.0 pg [facility] LABORATORY MCHC 33.2 31.7 - [facility] 35.0 g/dL [facility] LABORATORY Platelets 154 145 - 357 [facility] x10(3)/[facility] LABORATORY RDWSD 51.0 (H) 37.0 - [facility] 46.0 [facility] LABORATORY RDWCV 17.4 (H) 11.5 - [facility] 14.1 % [facility] LABORATORY MPV 11.2 7.6 - 12.9 [facility] LABORATORY nRBC % Auto 0.0 % [facility] LABORATORY nRBC Abs Auto 0.000 0.000 - [facility] 0.[address] [facility] x10(3)/[facility] LABORATORY Specimen Anatomical Collection Method Collection Time Receive d Time (Source) Location / / Volume Laterality Blood 10/05/2021 1:00 AM 2 1:12 EDT AM EDT Resulting Agency Comment Spec In Lab Fili Woodward MD HEMATOLOGY ORDERABLES Performing Organization Address City/State/[place] [address] (ABNORMAL) Basic Metabolic Panel (non-fasting) (10/05/2021 1:00 AM EDT) P athologist Signature Glucose Lvl 108 65 - 199 [facility] mg/dL [facility] LABORATORY Comment: Diabetes: >=200 mg/dL plus symp toms BUN 39 (H) 8 - 18 mg/dL [facility] LABORATORY Creatinine 2.54 (H) 0.70 - 1.20 mg/dL [facility] LABORATORY Sodium 130 (L) 135 - 145 mmol/L [facility] LABORATORY Potassium 4.1 3.5 - 5.0 mmol/L [facility] LABORATORY Comment: Please note: ??Patients with WBC >100,00 0 may have falsely elevated Potassium levels. ??For accurate Potassium quantif ication in these patients send serum separator tube (gold top) for subsequent determinations. ??Contact the Clinical Chemistry Laboratory if there are any qu estions. Chloride 95 (L) 98 - 107 mmol/L [facility] LABORATORY CO2 25 22 - 31 mmol/L [facility] LABORATORY Anion Gap 10 5 - 15 mmol/L [facility] LABORATORY Calcium 7.8 (L) 8.5 - 10.5 mg/dL [facility] LABORATORY Estimated GFR 18 (L) >=60 mL/min/1.73 m?? [facility] LABORATORY Comment: This patient? s estimated [...] Organization Address City/State/ZIP Code Phon e Number [place] [id number] Urinalysis Microscopic Exam (10/04/2021 6:10 PM EDT) athologist Signature RBC UA 2 0 - 4 /HPF [facility] LABORATORY WBC UA 5 0 - 5 /HPF [facility] LABORATORY Squam Epith UA 2 <=4 /HPF [facility] LABORATORY Hyaline Cast 2 0 - 2 /LPF [facility] LABORATORY Specimen Anatomical Collection Method Collection Time Receive d Time (Source) Location / / Volume Laterality Clean Catch 10/04/2021 6:10 PM 2 7:24 Urine EDT PM EDT Resulting Agency Comment Spec In Lab Arabella Walden MD URINE ORDERABLES Performing Organization Address City/State/[place] [address] (ABNORMAL) Urinalysis with reflex Culture (10/04/2021 6:10 PM EDT) [facility] Method Time Signature Glucose UA Negative Negative [facility] mg/dL [facility] LABORATORY Protein UA 100 (A) Negative [facility] mg/dL [facility] LABORATORY Bilirubin UA Negative Negative [facility] mg/dL [facility] LABORATORY Comment: Clinical correlation required for positi ve Urine Bilirubin results as false positive may occur with some drugs and d rug related products. If a false positive is suspected a serum total bili blandon should be considered if clinically indicated. Urobilinogen UA Normal Normal mg/dL [facility] LABORATORY pH UA 7.0 5.0 - 8.0 [facility] LABORATORY Blood UA Trace (A) Negative mg/dL [facility] Ketones UA Negative Negative mg/dL [facility] Nitrite UA Negative Negative [facility] LABORATORY Leukocytes UA Trace (A) Negative [facility] LABORATORY Appearance UA Clear Clear [facility] LABORATORY Spec [place] UA 1.014 1.005 - 1.030 [facility] LABORATORY Color UA Yellow Yellow [facility] LABORATORY Culture Reflexed No [facility] LABORATORY Specimen Anatomical Collection Method Collection Time Receive d Time (Source) Location / / Volume Laterality Clean Catch 10/04/2021 6:10 PM 7:24 Urine EDT PM EDT Resulting Agency Comment Spec In Lab Greyson Silverman MD URINE ORDERABLES Performing Organization Address City/[facility]/[place] [address] Chest Abdomen Pelvis wo Contrast (10/04/2021 7:47 AM EDT) Anatomical Region Laterality Modality Abdomen, Pelvis Computed Tomography Specimen (Source) Anatomical Collection Method Collection Time Re ceived Time Location / / Volume Laterality 10/04/2021 8:04 AM EDT Impressions 10/04/2021 8:13 AM EDT 1. 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 2. ??Small amount of nondependent air wi thin the beaver sac. Thank you for letting us participate in the care of this patient. ??If you are a health care provider and have any questi ons regarding this report, please contact the number below. ??For patients who have questions please contact the health client care representative that requested your imaging first. ? Electronically signed by: Dylan cristobal MD, [facility] ([phone]), at 10/04/2021 8:13 AM Narrative 10/04/2021 8:13 AM EDT EXAMINATION: CT [...] stent. Nondependent air is present in the beaver sac, which measure s 6.2 cm compared [...] stent. Nondependent air is present in the beaver sac, which measure s 6.2 cm compared [...] amount of nondependent air with in the beaver sac. Thank you for letting us participate in the care of this patient. If you are a health care provider and have any questi ons regarding this report, please contact the number below. For patients w ho have questions please contact the health client care representative that requested your imaging first. Greyson Silverman MD IMG CT ORDERABLES Scan, Peripheral Blood (10/04/2021 1:20 AM EDT) [facility] gist Method Time Signature Plat Estimate Normal [facility]ORATORY RBC Morphology Abnormal [facility] Ovalocytes 1-5 /HPF [facility] Vacuolated Neut Present [facility] LABORATORY Specimen Anatomical Collection Method Collection Time Receive d Time (Source) Location / / Volume Laterality Blood 10/04/2021 1:20 AM 2 1:30 EDT AM EDT Resulting Agency Comment Spec In Lab Fili Woodward MD HEMATOLOGY ORDERABLES Performing Organization Address City/State/[place] [address] (ABNORMAL) Differential, Automated (10/04/2021 1:20 AM EDT) [facility] Method Time Signature Neutrophils % 82.3 % [facility] LABORATORY Neutr Abs (ANC) 22.06 (H) 1.70 - [facility] 6.[address] [facility] x10(3)/[facility] LABORATORY Lymphocytes % 4.5 % [facility]ORATORY Lymphocytes Abs 1.2 0.9 - 3.2 [facility] x10(3)/[facility] LABORATORY Monocytes % 10.1 % [facility] LABORATORY Monocyte Abs 2.7 (H) 0.3 - 0.9 [facility] x10(3)/[facility] LABORATORY Eosinophils % 1.0 % [facility] LABORATORY Eosinophils Abs 0.3 0.0 - 0.4 [facility] x10(3)/[facility] LABORATORY Basophils % 0.3 % [facility]ORATORY Basophils Abs 0.1 0.0 - 0.1 [facility] x10(3)/[facility] LABORATORY Immature Gran % 1.80 % [facility] LABORATORY Comment: Immature granulocytes(IG's)percentage an d absolute count will include metamyelocytes, myelocytes, and promyelo cytes. Blood smears from CBCs yielding IG's will be scanned manually for concor dance. If this scan disagrees with the automated IG or if promyelocytes are not ed, a manual differential will be performed. Blanca Gran Abs 0.49 (H) 0.00 - 0.04 x10(3)/[facility] LABORATORY Specimen Anatomical Collection Method Collection Time Receive d Time (Source) Location / / Volume Laterality Blood 10/04/2021 1:20 AM 1:30 EDT AM EDT Resulting Agency Comment Spec In Lab Fili Woodward MD HEMATOLOGY ORDERABLES Performing Organization Address City/State/ZIP Code Phon e Number [place] [id number] Drive (ABNORMAL) Hemogram (10/04/2021 1:20 AM EDT) Analysis Performed At Patho logist Time Signature WBC 26.8 (H) 4.0 - 9.5 [facility] x10(3)/[facility] LABORATORY RBC 3.90 (L) 4.00 - [facility] 5.[address] [facility] x10(6)/[facility] LABORATORY Hemoglobin 10.2 (L) 11.7 - [facility] g/dL [facility] LABORATORY Hematocrit 31.6 (L) 35.7 - [facility] 45.8 % [facility] LABORATORY MCV 81.0 (L) 82.6 - [facility] 94.4 [facility] LABORATORY MCH 26.2 (L) 27.1 - [facility] 32.0 pg [facility]AT[facility] MCHC 32.3 31.7 - [facility] g/dL [facility] Platelets 153 145 - 357 [facility] x10(3)/[facility] LABORATORY RDWSD 51.4 (H) 37.0 - [facility] 46.0 [facility] LABORATORY RDWCV 17.4 (H) 11.5 - [facility] 14.1 % [facility] LABORATORY MPV 11.3 7.6 - 12.9 [facility] LABORATORY nRBC % Auto 0.0 % [facility] LABORATORY nRBC Abs Auto 0.000 0.000 - [facility] 0.[address] [facility] x10(3)/[facility] LABORATORY Specimen Anatomical Collection Method Collection Time Receive d Time (Source) Location / / Volume Laterality Blood 10/04/2021 1:20 AM 2 1:30 EDT AM EDT Resulting Agency Comment Spec In Lab Fili Woodward MD HEMATOLOGY ORDERABLES Performing Organization Address City/State/[place] [address] COVID-19 PCR (10/04/2021 1:20 AM EDT) [facility] Time Signature SARS-CoV-2 Not Detected Not Detected [facility] RNA [facility] LABORATORY Comment: This result should be interpreted [...] diagnosis of COVID-19 is performed using the [employer] JAYESH S-CoV-2 Assay as authorized by the FDA Emergency Use Authorization (EUA). This EUA assay is intended for In-vitro Diagnostic (IVD) use with respiratory sp ecimens such as nasopharyngeal swabs collected from individuals during the ac graciela phase of infection. This assay is performed based on the instructions for use provided by [employer] and additional guidance provided by CDC and FDA. Testing is performed in the Clinical Genomics and Advanced Technolog y Laboratory within the Department of Pathology and Laboratory Medicine at [facility], certified under the Clinical Laboratory [...] is infected. As required or requested by public health [facility], positive specimens may be sent for additional [...] clinical management guidance information are available at e [facility] Coronavirus Disease 2019 (COVID-19) webpage under Information fo r Healthcare Professionals (https://www.cdc.gov/coronavirus/2019-nc ov/hcp/index.html) Additional information about this and ot her EUA tests can be found in provider and patient fact sheets at the following FDA website: https://www.fda.gov/medical-devices/zaysqvogota-vklgihm-9232-iztex-45-iqcsoubas- jpr-iwzjdqhrldqjxi-pgbshov-devices/jyaap-notdwgshsaz-gwrf SARS-Cov-2 RNA Source [employer] Swab [facility] LABOR[facility]ORY Specimen (Source) Anatomical Collection Method Collection Time Re ceived Time Location / / Volume Laterality Nasopharyngeal Swab 10/04/2021 1:20 10/04 AM EDT 8:46 AM EDT Comment: Symptoms->Surveillance Resulting Agency Comment Spec In Lab Greyson Silverman MD MICROBIOLOGY - GENERAL ORDER AYAD Performing Organization Address City/State/[place] [address] (ABNORMAL) Basic Metabolic Panel (non-fasting) (10/04/2021 1:20 AM EDT) athologist Signature Glucose Lvl 90 65 - 199 [facility] mg/dL [facility] Comment: Diabetes: >=200 mg/dL plus symp toms BUN 34 (H) 8 - 18 mg/dL [facility] Creatinine 2.47 (H) 0.70 - 1.20 mg/dL [facility] Sodium 131 (L) 135 - 145 mmol/L [facility] Potassium 3.7 3.5 - 5.0 mmol/L [facility] Comment: Please note: ??Patients with WBC >100,00 0 may have falsely elevated Potassium levels. ??For accurate Potassium quantif ication in these patients send serum separator tube (gold top) for subsequent determinations. ??Contact the Clinical Chemistry Laboratory if there are any qu estions. Chloride 95 (L) 98 - 107 mmol/L [facility] CO2 22 22 - 31 mmol/L [facility] Anion Gap 14 5 - 15 mmol/L [facility] Calcium 8.3 (L) 8.5 - 10.5 mg/dL [facility] Estimated GFR 19 (L) >=60 mL/min/1.73 m?? [facility] Comment: This patient? s estimated [...] Organization Address City/State/ZIP Code Phon e Number [address] Green Tube HOLD (10/03/2021 8:00 PM EDT) P athologist Signature Green Hold Sample in [facility]. [facility] Specimen Anatomical Collection Method Collection Time Receive d Time (Source) Location / / Volume Laterality Blood No Charge / 10/03/2021 8:00 PM 2 8:04 Unknown EDT PM EDT Candy Hernandez APRN CHEMISTRY ORDERABLES Performing Organization Address City/State/ZIP Code Phon e Number [address] FLEXIBLE SIGMOIDOSCOPY (10/03/2021 2:25 PM EDT) Component Value Ref Test Analysis [facility]formed At [facility] Range Method Time Signature FLEXIBLE [facility] PROVATION SIGMOIDOSCOPY Endoscopy Procedure Date: 10/03/2021 2:25 PM ? Patient Name: Pretty Harmon ? Date of : 1950 ? Age: 70 ? Order #: [id number] ? Instrument Name: [id number] ? Procedure: ? Flexible Sigmoidoscopy Indications: ? Suspected acute ischemic colitis Providers: ? Silver Rossi MD, Shahbaz Sneed ? Aurelia, Lianna Harrison, Ibrahim line ? Haroldo Paige Referring MD: ?Sanjuanita Mejia, ? MD Complications: ? No [...] Signature Sodium 131 (L) 135 - 145 [facility] mmol/L [facility] Potassium 3.9 3.5 - 5.0 [facility] mmol/L [facility] Comment: Please note: ??Patients with WBC >100,00 0 may have falsely elevated Potassium levels. ??For accurate Potassium quantif ication in these patients send serum separator tube (gold top) for subsequent determinations. ??Contact the Clinical Chemistry Laboratory if there are any qu estions. Chloride 95 (L) 98 - 107 mmol/L [facility] CO2 24 22 - 31 mmol/L [facility] Anion Gap 12 5 - 15 mmol/L [facility] Specimen Anatomical Collection Method Collection Time Receive d Time (Source) Location / / Volume Laterality Blood 10/03/2021 2:15 PM 2 2:17 EDT PM EDT Resulting Agency Comment Spec In Lab Candy Hernandez APRN CHEMISTRY ORDERABLES Performing Organization Address City/State/[place] [address] XR Abdomen Flat & [...] who have questions please contact the health client care representative that requested your imaging first. ? Electronically signed by: Viviane Cohen, [facility] ([phone]), at 10/03/2021 1:34 PM Narrative 10/03/2021 1:34 PM EDT EXAMINATION: XR [...] ho have questions please contact the health client care representative that requested your imaging first. Electronically signed by: Viviane Cohen, [facility] ([phone]), at 10/03/2021 1:34 PM Candy Hernandez SUPER[employer] IMG DX ORDERABLES (ABNORMAL) Differential, Automated (10/03/2021 9:05 AM EDT) [facility] gist Method Time Signature Neutrophils % 82.1 % [facility] Neutr Abs (ANC) 19.89 (H) 1.70 - [facility] 6.[address] [facility] x10(3)/[facility] LABORATORY Lymphocytes % 4.3 % [facility] Lymphocytes Abs 1.0 0.9 - 3.2 [facility] x10(3)/[facility] LABORATORY Monocytes % 11.1 % [facility] Monocyte Abs 2.7 (H) 0.3 - 0.9 [facility] x10(3)/[facility] LABORATORY Eosinophils % 1.0 % [facility] Eosinophils Abs 0.2 0.0 - 0.4 [facility] x10(3)/[facility] LABORATORY Basophils % 0.2 % [facility] Basophils Abs 0.1 0.0 - 0.1 [facility] x10(3)/[facility] LABORATORY Immature Gran % 1.30 % [facility] Comment: Immature granulocytes(IG's)percentage an d absolute count will include metamyelocytes, myelocytes, and promyelo cytes. Blood smears from CBCs yielding IG's will be scanned manually for concor dance. If this scan disagrees with the automated IG or if promyelocytes are not ed, a manual differential will be performed. Blanca Gran Abs 0.32 (H) 0.00 - 0.04 x10(3)/[facility] LABORATORY Specimen Anatomical Collection Method Collection Time Receive d Time (Source) Location / / Volume Laterality Blood 10/03/2021 9:05 AM 9:18 EDT AM EDT Resulting Agency Comment Spec In Lab Candy Hernandez APRN HEMATOLOGY ORDERABLES Performing Organization Address City/State/[place] [address] (ABNORMAL) Hemogram (10/03/2021 9:05 AM EDT) Analysis Performed At [facility] logist Time Signature WBC 24.2 (H) 4.0 - 9.5 [facility] x10(3)/[facility] LABORATORY RBC 4.38 4.00 - [facility] 5.[address] [facility] x10(6)/[facility] LABORATORY Hemoglobin 11.7 11.7 - [facility] 15.5 g/dL [facility] Hematocrit 35.3 (L) 35.7 - [facility] 45.8 % [facility] MCV 80.6 (L) 82.6 - [facility] 94.4 [facility] LABORATORY MCH 26.7 (L) 27.1 - [facility] 32.0 pg [facility] MCHC 33.1 31.7 - [facility] g/dL [facility] Platelets 142 (L) 145 - 357 [facility] x10(3)/[facility] LABORATORY RDWSD 50.4 (H) 37.0 - [facility] 46.0 [facility] LABORATORY RDWCV 17.2 (H) 11.5 - [facility] 14.1 % [facility] MPV 11.3 7.6 - 12.9 [facility] LABORATORY nRBC % Auto 0.0 % [facility] nRBC Abs Auto 0.000 0.000 - [facility] 0.[address] [facility] x10(3)/[facility] LABORATORY Specimen Anatomical Collection Method Collection Time Receive d Time (Source) Location / / Volume Laterality Blood 10/03/2021 9:05 AM 9:18 EDT AM EDT Resulting Agency Comment Spec In Lab Candy Hernandez APRN HEMATOLOGY ORDERABLES Performing Organization Address City/State/[place] [address] (ABNORMAL) Basic Metabolic Panel (non-fasting) (10/03/2021 9:05 AM EDT) P athologist Signature Glucose Lvl 110 65 - 199 [facility] mg/dL [facility] Comment: Diabetes: >=200 mg/dL plus symp toms BUN 33 (H) 8 - 18 mg/dL [facility] Creatinine 2.41 (H) 0.70 - 1.20 mg/dL [facility] Sodium 128 (L) 135 - 145 mmol/L [facility] Potassium Not Perf 3.5 - 5.0 [facility] Comment: Unable to quantitate due [...] Chloride 92 (L) 98 - 107 mmol/L [facility] CO2 23 22 - 31 mmol/L [facility] Anion Gap 13 5 - 15 mmol/L [facility] Calcium 8.4 (L) 8.5 - 10.5 mg/dL [facility] Estimated GFR 19 (L) >=60 mL/min/1.73 m?? [facility] Comment: This patient? s estimated [...] Organization Address City/State/ZIP Code Phon e Number [address] Lactate, whole blood, send to lab ([place]) (10/03/2021 9:05 AM EDT) athologist [facility] Lactate WB 1.5 0.5 - 2.2 [facility] mmol/L [facility] Specimen Anatomical Collection Method Collection Time Receive d Time (Source) Location / / Volume Laterality Blood 10/03/2021 9:05 AM 9:17 EDT AM EDT Resulting Agency Comment Spec In Lab Candy Hernandez APRN CHEMISTRY ORDERABLES Performing Organization Address City/[facility]/ZIP Code Phon e Number [address] (ABNORMAL) Hepatic Function Panel (10/03/2021 1:15 AM EDT) athologist [facility] Total Protein 6.6 6.1 - 8.0 [facility] g/dL [facility] Albumin 3.9 3.2 - 5.2 [facility] g/dL [facility] AST 58 (H) 0 - 30 [facility]L [facility] ALT 27 0 - 30 [facility] unit/L [facility] Alk Phos 75 35 - 105 [facility] unit/L [facility] Total 0.4 0.2 - 1.3 [facility] Bilirubin mg/dL [facility] Bili, Direct 0.1 0.0 - 0.3 [facility] mg/dL [facility] Specimen Anatomical Collection Method Collection Time Receive d Time (Source) Location / / Volume Laterality Blood Venous Draw / 10/03/2021 1:15 AM 10/04/19 22 1:26 Unknown EDT AM EDT Resulting Agency Comment Spec In Lab Candy Hernandez APRN CHEMISTRY ORDERABLES Performing Organization Address City/[facility]/ZIP Code Phon e Number [address] Scan, Peripheral Blood (10/03/2021 1:15 AM EDT) [facility] gist Method Time Signature Plat Estimate Normal [facility] RBC Morphology Abnormal [facility] Microcytes 1-5 /HPF [facility] Hypochromia Slight [facility] Ovalocytes 1-5 /HPF [facility] [place] Cells 1-5 /HPF [facility] Specimen Anatomical Collection Method Collection Time Receive d Time (Source) Location / / Volume Laterality Blood 10/03/2021 1:15 AM 1:24 EDT AM EDT Resulting Agency Comment Spec In Lab Stephanie Cevallos MD HEMATOLOGY ORDERABLES Performing Organization Address City/State/[place] [address] (ABNORMAL) Differential, Automated (10/03/2021 1:15 AM EDT) [facility] Method Time Signature Neutrophils % 82.8 % [facility] Neutr Abs (ANC) 19.29 (H) 1.70 - [facility] 6.[address] [facility] x10(3)/[facility] LABORATORY Lymphocytes % 4.5 % [facility] Lymphocytes Abs 1.0 0.9 - 3.2 [facility] x10(3)/[facility] LABORATORY Monocytes % 11.2 % [facility] Monocyte Abs 2.6 (H) 0.3 - 0.9 [facility] x10(3)/[facility] LABORATORY Eosinophils % 0.6 % [facility] Eosinophils Abs 0.1 0.0 - 0.4 [facility] x10(3)/[facility] LABORATORY Basophils % 0.3 % [facility] Basophils Abs 0.1 0.0 - 0.1 [facility] x10(3)/[facility] LABORATORY Immature Gran % 0.60 % [facility] Comment: Immature granulocytes(IG's)percentage an d absolute count will include metamyelocytes, myelocytes, and promyelo cytes. Blood smears from CBCs yielding IG's will be scanned manually for concor dance. If this scan disagrees with the automated IG or if promyelocytes are not ed, a manual differential will be performed. Blanca Gran Abs 0.13 (H) 0.00 - 0.04 x10(3)/[facility] LABORATORY Specimen Anatomical Collection Method Collection Time Receive d Time (Source) Location / / Volume Laterality Blood 10/03/2021 1:15 AM 2 1:24 EDT AM EDT Resulting Agency Comment Spec In Lab Stephanie Cevallos MD HEMATOLOGY ORDERABLES Performing Organization Address City/State/[place] [address] (ABNORMAL) Hemogram (10/03/2021 1:15 AM EDT) Analysis Performed At Patho logist Time Signature WBC 23.3 (H) 4.0 - 9.5 [facility] x10(3)/[facility] LABORATORY RBC 4.22 4.00 - [facility] 5.[address] [facility] x10(6)/[facility] LABORATORY Hemoglobin 11.2 (L) 11.7 - [facility] 15.5 g/dL [facility] Hematocrit 33.9 (L) 35.7 - [facility] 45.8 % [facility] MCV 80.3 (L) 82.6 - [facility] 94.4 [facility] LABORATORY MCH 26.5 (L) 27.1 - [facility] 32.0 pg [facility] MCHC 33.0 31.7 - [facility] 35.0 g/dL [facility] Platelets 159 145 - 357 [facility] x10(3)/[facility] LABORATORY RDWSD 50.6 (H) 37.0 - [facility] 46.0 [facility] LABORATORY RDWCV 17.3 (H) 11.5 - [facility] 14.1 % [facility] MPV 10.4 7.6 - 12.9 [facility] LABORATORY nRBC % Auto 0.0 % [facility] nRBC Abs Auto 0.000 0.000 - [facility] 0.[address] [facility] x10(3)/[facility] LABORATORY Specimen Anatomical Collection Method Collection Time Receive d Time (Source) Location / / Volume Laterality Blood 10/03/2021 1:15 AM 2 1:24 EDT AM EDT Resulting Agency Comment Spec In Lab Stephanie Cevallos MD HEMATOLOGY ORDERABLES Performing Organization Address City/[facility]/ZIP Code Phon e Number [address] Phosphorus (10/03/2021 1:15 AM EDT) athologist Signature Phosphorus 3.6 2.5 - 4.5 [facility] Specimen Anatomical Collection Method Collection Time Receive d Time (Source) Location / / Volume Laterality Blood 10/03/2021 1:15 AM 2 1:24 EDT AM EDT Resulting Agency Comment Spec In Lab Greyson Silverman MD CHEMISTRY ORDERABLES Performing Organization Address City/[facility] Phon e Number [address] (ABNORMAL) Magnesium (10/03/2021 1:15 AM EDT) athologist Signature Magnesium 1.23 (H) 0.69 - 1.07 [facility] mmol/L [facility] Comment: result rechecked-sf Specimen Anatomical Collection Method Collection Time Receive d Time (Source) Location / / Volume Laterality Blood 10/03/2021 1:15 AM 2 1:24 EDT AM EDT Resulting Agency Comment Spec In Lab Greyson Silverman MD CHEMISTRY ORDERABLES Performing Organization Address City/[facility]/ZIP [facility] [place] [address] (ABNORMAL) Basic Metabolic Panel (non-fasting) (10/03/2021 1:15 AM EDT) athologist Signature Glucose Lvl 124 65 - 199 [facility] mg/dL [facility] Comment: Diabetes: >=200 mg/dL plus symp toms BUN 31 (H) 8 - 18 mg/dL [facility] Creatinine 2.37 (H) 0.70 - 1.20 mg/dL [facility] Sodium 130 (L) 135 - 145 mmol/L [facility] Potassium 4.0 3.5 - 5.0 mmol/L [facility] Comment: Please note: ??Patients with WBC >100,00 0 may have falsely elevated Potassium levels. ??For accurate Potassium quantif ication in these patients send serum separator tube (gold top) for subsequent determinations. ??Contact the Clinical Chemistry Laboratory if there are any qu estions. Chloride 92 (L) 98 - 107 mmol/L [facility] Comment: result rechecked-sf CO2 25 22 - 31 mmol/L [facility] Anion Gap 13 5 - 15 mmol/L [facility] Calcium 8.2 (L) 8.5 - 10.5 mg/dL [facility] Estimated GFR 20 (L) >=60 mL/min/1.73 m?? [facility] Comment: This patient? s estimated [...] Organization Address City/State/[place] [address] (ABNORMAL) Differential, Automated (10/02/2021 12:30 AM EDT) [facility] gist Method Time Signature Neutrophils % 87.3 % [facility] Neutr Abs (ANC) 11.58 (H) 1.70 - [facility] 6.[address] [facility] x10(3)/[facility] L LABORATORY Lymphocytes % 4.6 % [facility] Lymphocytes Abs 0.6 (L) 0.9 - 3.2 [facility] x10(3)/[facility] LABORATORY Monocytes % 7.4 % [facility] Monocyte Abs 1.0 (H) 0.3 - 0.9 [facility] x10(3)/[facility] LABORATORY Eosinophils % 0.0 % [facility] Eosinophils Abs 0.0 0.0 - 0.4 [facility] x10(3)/[facility] LABORATORY Basophils % 0.2 % [facility] Basophils Abs 0.0 0.0 - 0.1 [facility] x10(3)/[facility] LABORATORY Immature Gran % 0.50 % [facility] Comment: Immature granulocytes(IG's)percentage an d absolute count will include metamyelocytes, myelocytes, and promyelo cytes. Blood smears from CBCs yielding IG's will be scanned manually for concor dance. If this scan disagrees with the automated IG or if promyelocytes are not ed, a manual differential will be performed. Blanca Gran Abs 0.06 (H) 0.00 - 0.04 x10(3)/[facility] LABORATORY Specimen Anatomical Collection Method Collection Time Receive d Time (Source) Location / / Volume Laterality Blood 10/02/2021 12:30 10/02/2021 AM EDT 12:37 AM EDT Resulting Agency Comment Spec In Lab Greyson Chase APRN HEMATOLOGY ORDERABLES Performing Organization Address City/State/[place] [address] (ABNORMAL) Hemogram (10/02/2021 12:30 AM EDT) Analysis Performed At Patho logist Time Signature WBC 13.2 (H) 4.0 - 9.5 [facility] x10(3)/[facility] LABORATORY RBC 3.98 (L) 4.00 - [facility] 5.[address] [facility] x10(6)/[facility] LABORATORY Hemoglobin 10.6 (L) 11.7 - [facility] 15.5 g/dL [facility] Hematocrit 31.8 (L) 35.7 - [facility] 45.8 % [facility] MCV 79.9 (L) 82.6 - [facility] 94.4 [facility] LABORATORY MCH 26.6 (L) 27.1 - [facility] 32.0 pg [facility] MCHC 33.3 31.7 - [facility] 35.0 g/dL [facility] Platelets 180 145 - 357 [facility] x10(3)/[facility] LABORATORY RDWSD 50.4 (H) 37.0 - [facility] 46.0 [facility] LABORATORY RDWCV 17.2 (H) 11.5 - [facility] 14.1 % [facility] MPV 10.2 7.6 - 12.9 [facility] LABORATORY nRBC % Auto 0.0 % [facility] nRBC Abs Auto 0.000 0.000 - [facility] 0.[address] [facility] x10(3)/[facility] LABORATORY Specimen Anatomical Collection Method Collection Time Receive d Time (Source) Location / / Volume Laterality Blood 10/02/2021 12:30 10/02/2021 AM EDT 12:37 AM EDT Resulting Agency Comment Spec In Lab Greyson Chase APRN HEMATOLOGY ORDERABLES Performing Organization Address City/State/[place] [address] (ABNORMAL) Basic Metabolic Panel (non-fasting) (10/02/2021 12:30 AM EDT) P athologist Signature Glucose Lvl 149 65 - 199 [facility] mg/dL [facility] Comment: Diabetes: >=200 mg/dL plus symp toms BUN 34 (H) 8 - 18 mg/dL [facility] Creatinine 2.14 (H) 0.70 - 1.20 mg/dL [facility] Sodium 136 135 - 145 mmol/L [facility] Potassium 4.0 3.5 - 5.0 mmol/L [facility] Comment: Please note: ??Patients with WBC >100,00 0 may have falsely elevated Potassium levels. ??For accurate Potassium quantif ication in these patients send serum separator tube (gold top) for subsequent determinations. ??Contact the Clinical Chemistry Laboratory if there are any qu estions. Chloride 102 98 - 107 mmol/L [facility] CO2 20 (L) 22 - 31 mmol/L [facility] Anion Gap 14 5 - 15 mmol/L [facility] Calcium 8.1 (L) 8.5 - 10.5 mg/dL [facility] Comment: result rechecked-SW Estimated GFR 22 (L) >=60 mL/min/1.73 m?? [facility] Comment: This patient? s estimated [...] Organization Address City/State/[place] [address] Phosphorus (10/02/2021 12:30 AM EDT) P athologist Signature Phosphorus 4.1 2.5 - 4.5 [facility] mg/dL [facility] Specimen Anatomical Collection Method Collection Time Receive d Time (Source) Location / / Volume Laterality Blood 10/02/2021 12:30 10/02/2021 AM EDT 12:37 AM EDT Resulting Agency Comment Spec In Lab Greyson E Chase SUPER[employer] CHEMISTRY ORDERABLES Performing Organization Address City/State/ZIP Code Phon e Number [address] Magnesium (10/02/2021 12:30 AM EDT) P athologist Signature Magnesium 0.77 0.69 - 1.07 [facility] mmol/L [facility] Specimen Anatomical Collection Method Collection Time Receive d Time (Source) Location / / Volume Laterality Blood 10/02/2021 12:30 10/02/2021 AM EDT 12:37 AM EDT Resulting Agency Comment Spec In Lab Greyson Chase [employer]PER[employer] CHEMISTRY ORDERABLES Performing Organization Address City/State/ZIP Code Phon e Number [address] (ABNORMAL) Differential, Automated (10/01/2021 5:20 PM EDT) Patholo gist Method Time Signature Neutrophils % 90.8 % [facility] Neutr Abs (ANC) 11.10 (H) 1.70 - [facility] 6.[address] [facility] x10(3)/[facility] L LABORATORY Lymphocytes % 3.8 % [facility] Lymphocytes Abs 0.5 (L) 0.9 - 3.2 [facility] x10(3)/[facility] LABORATORY Monocytes % 4.7 % [facility] Monocyte Abs 0.6 0.3 - 0.9 [facility] x10(3)/[facility] LABORATORY Eosinophils % 0.2 % [facility] Eosinophils Abs 0.0 0.0 - 0.4 [facility] x10(3)/[facility] LABORATORY Basophils % 0.2 % [facility] Basophils Abs 0.0 0.0 - 0.1 [facility] x10(3)/[facility] LABORATORY Immature Gran % 0.30 % [facility] Comment: Immature granulocytes(IG's)percentage an d absolute count will include metamyelocytes, myelocytes, and promyelo cytes. Blood smears from CBCs yielding IG's will be scanned manually for concor dance. If this scan disagrees with the automated IG or if promyelocytes are not ed, a manual differential will be performed. Blanca Gran Abs 0.04 0.00 - 0.04 x10(3)/[facility] LABORATORY Specimen Anatomical Collection Method Collection Time Receive d Time (Source) Location / / Volume Laterality Blood 10/01/2021 5:20 PM 5:25 EDT PM EDT Resulting Agency Comment Spec In Lab Greyson Chase APRN HEMATOLOGY ORDERABLES Performing Organization Address City/State/[place] [address] (ABNORMAL) Hemogram (10/01/2021 5:20 PM EDT) Analysis Performed At Patho logist Time Signature WBC 12.2 (H) 4.0 - 9.5 [facility] x10(3)/[facility] LABORATORY RBC 4.42 4.00 - [facility] 5[facility] [facility] x10(6)/[facility] LABORATORY Hemoglobin 11.7 11.7 - [facility] 15.5 g/dL [facility] LABORATORY Hematocrit 35.8 35.7 - [facility] 45.8 % [facility] LABORATORY MCV 81.0 (L) 82.6 - [facility] 94.4 [facility] LABORATORY MCH 26.5 (L) 27.1 - [facility] 32.0 pg [facility] LABORATORY MCHC 32.7 31.7 - [facility] 35.0 g/dL [facility] LABORATORY Platelets 212 145 - 357 [facility] x10(3)/[facility] LABORATORY RDWSD 50.4 (H) 37.0 - [facility] 46.0 [facility] LABORATORY RDWCV 17.3 (H) 11.5 - [facility] 14.1 % [facility] LABORATORY MPV 10.6 7.6 - 12.9 [facility] LABORATORY nRBC % Auto 0.0 % [facility] LABORATORY nRBC Abs Auto 0.000 0.000 - [facility] 0.[address] [facility] x10(3)/[facility] LABORATORY Specimen Anatomical Collection Method Collection Time Receive d Time (Source) Location / / Volume Laterality Blood 10/01/2021 5:20 PM 2 5:25 EDT PM EDT Resulting Agency Comment Spec In Lab Greyson Chase APRN HEMATOLOGY ORDERABLES Performing Organization Address City/[facility]/[place]IP [place] [address] T4, free (10/01/2021 5:20 PM EDT) P athologist Signature Free T4 1.42 0.93 - 1.70 [facility] ng/dL [facility] LABORATORY Comment: Reference Interval (ng/dL): Females: ??First Trimester: 0.97-1.68 ??Second Trimester: 0.77-1.51 ??Third Trimester: 0.77-1.49 Specimen Anatomical Collection Method Collection Time Receive d Time (Source) Location / / Volume Laterality Blood 10/01/2021 5:20 PM 2 5:25 EDT PM EDT Resulting Agency Comment Spec In Lab Greyson Chase APRN CHEMISTRY ORDERABLES Performing Organization Address City/[facility]/ZIP Code Phon e Number [address] (ABNORMAL) Differential, Automated (10/01/2021 1:10 PM EDT) [facility] gist Method Time Signature Neutrophils % 81.7 % [facility] LABORATORY Neutr Abs (ANC) 8.20 (H) 1.70 - [facility] 6.[address] [facility] x10(3)/[facility] L LABORATORY Lymphocytes % 7.8 % [facility] LABORATORY Lymphocytes Abs 0.8 (L) 0.9 - 3.2 [facility] x10(3)/[facility] LABORATORY Monocytes % 7.2 % [facility] LABORATORY Monocyte Abs 0.7 0.3 - 0.9 [facility] x10(3)/[facility] LABORATORY Eosinophils % 2.0 % [facility] LABORATORY Eosinophils Abs 0.2 0.0 - 0.4 [facility] x10(3)/[facility] LABORATORY Basophils % 0.3 % [facility] LABORATORY Basophils Abs 0.0 0.0 - 0.1 [facility] x10(3)/[facility] LABORATORY Immature Gran % 1.00 % [facility] LABORATORY Comment: Immature granulocytes(IG's)percentage an d absolute count will include metamyelocytes, myelocytes, and promyelo cytes. Blood smears from CBCs yielding IG's will be scanned manually for concor dance. If this scan disagrees with the automated IG or if promyelocytes are not ed, a manual differential will be performed. Blanca Gran Abs 0.10 (H) 0.00 - 0.04 x10(3)/[facility] LABORATORY Specimen Anatomical Collection Method Collection Time Receive d Time (Source) Location / / Volume Laterality Blood 10/01/2021 1:10 PM 2 1:22 EDT PM EDT Resulting Agency Comment Spec In Lab Stephanie Cevallos MD HEMATOLOGY ORDERABLES Performing Organization Address City/State/ZIP Code Phon e Number [place] [id number] (ABNORMAL) Hemogram (10/01/2021 1:10 PM EDT) Analysis Performed At Patho logist Time Signature WBC 10.0 (H) 4.0 - 9.5 [facility] x10(3)/[facility] LABORATORY RBC 3.91 (L) 4.00 - [facility] 5.[address] [facility] x10(6)/[facility] LABORATORY Hemoglobin 10.6 (L) 11.7 - [facility] 15.5 g/dL [facility] LABORATORY Hematocrit 31.5 (L) 35.7 - [facility] 45.8 % [facility] LABORATORY MCV 80.6 (L) 82.6 - [facility] 94.4 [facility] LABORATORY MCH 27.1 27.1 - [facility] 32.0 pg [facility] LABORATORY MCHC 33.7 31.7 - [facility] 35.0 g/dL [facility] LABORATORY Platelets 179 145 - 357 [facility] x10(3)/[facility] LABORATORY RDWSD 51.4 (H) 37.0 - [facility] 46.0 [facility] LABORATORY RDWCV 17.4 (H) 11.5 - [facility] 14.1 % [facility] LABORATORY MPV 10.4 7.6 - 12.9 [facility] fL [facility] LABORATORY nRBC % Auto 0.0 % [facility] LABORATORY nRBC Abs Auto 0.000 0.000 - ZAKIA ZHANG 0.[address] [facility] x10(3)/[facility] LABORATORY Specimen Anatomical Collection Method Collection Time Receive d Time (Source) Location / / Volume Laterality Blood 10/01/2021 1:10 PM 1:22 EDT PM EDT Resulting Agency Comment Spec In Lab Stephanie Cevallos MD HEMATOLOGY ORDERABLES Performing Organization Address City/State/ZIP Code Phon e Number [address] POCT Glucose (10/01/2021 12:27 PM EDT) P athologist Signature POC Glucose 172 65 - 199 [facility] mg/dL [facility] LABORATORY Comment: Supplemental ranges: <140 mg/dL before meals <180 mg/dL all other times of the day Specimen Anatomical Collection Method Collection Time Receive d Time (Source) Location / / Volume Laterality Blood 10/01/2021 12:27 10/01/2021 PM EDT 12:27 PM EDT Greyson Silverman MD POINT OF CARE TEST ORDERABLE S Performing Organization Address City/[facility]/ZIP Code Phon e Number [address] COVID-19 PCR (10/01/2021 11:35 AM EDT) [facility] Method Time Signature SARS-CoV-2 Not Detected Not Detected ZAKIA RNA PCR [facility] LABORATORY Comment: This result should be interpreted in com bination with the clinical observations, patient history and epidem iological information. For testing of asymptomatic individuals, assay performa nce characteristics and clinical utility have not been evaluated. Testing for SARS-CoV-2 (Severe acute respiratory syndrome coronavirus 2, form erly known as 2019 novel coronavirus or 2019-nCoV) to aid in the diagnosis of CO VID-19 is performed using the Simplexa COVID-19 Direct Assay by [employer] as authorized by the FDA issued Emergency Use Authorization (EUA). This assay is intended for In-vitro Diagnostic (IVD) use with nasopharyngeal swabs collected from individuals meeting the CDC criteria for testing. assay is performed based on the instructions for use and additional guid michelle provided by the FDA. Testing is performed in the Microbiology Laboratory within the Department of Pathology and Laboratory Medicine at [facility], certified under the Clinical Laboratory Improvement [...] clinical management guidance information are available at [facility] CDC Coronavirus Disease 2019 (COVID-19) webpage under Information fo r Healthcare Professionals (https://www.cdc.gov/coronavirus/2019-nc ov/hcp/index.html). Additional information about this and ot her EUA tests can be found in provider and patient fact sheets at the following FDA website: https://www.fda.gov/medical-devices/nzbddrnlvbp-kcvvsvh-1627-oqvbr-79-jqvgyeqbm- ojc-pjsrgauztzcawu-dbvuyzq-devices/zagyq-fcxkrrapnyw-wmdn SARS-CoV-2 Source [employer] WORK[employer] Swab [facility] LABORATORY Specimen (Source) Anatomical Collection Method Collection Time Re ceived Time Location / / Volume Laterality Nasopharyngeal Swab 10/01/2021 11:35 06/0 10/2021 AM EDT 12:06 PM EDT Comment: Symptoms->Surveillance Resulting Agency Comment Spec In Lab Greyson Silverman MD MICROBIOLOGY - GENERAL ORDER AYAD Performing Organization Address City/State/[place] [address] (ABNORMAL) BLOOD GAS 2 ARTERIAL (10/01/2021 9:39 AM EDT) Analysis Performed At Patho logist Time Signature pH Art 7.38 7.35 - [facility] 7.45 [facility] LABORATORY pCO2 Art 41 35 - 45 [facility] LABORATORY pO2 Art 276 (H) 85 - 104 [facility] LABORATORY HCO3 Art 23.3 20.0 - [facility] 26.[address] [facility] mmol/L [facility] LABORATORY BE Art -1.9 -3.0 - 3.0 [facility] mmol/L [facility] LABORATORY Hgb Blood Gas 10.9 (L) 11.7 - [facility] 15.5 g/dL [facility] LABORATORY O2HB Art 97.9 (H) 94.0 - [facility] 97.0 % [facility] LABORATORY COHB Art 0.4 % [facility] LABORATORY Comment: Nonsmokers: 0.5-1.5% COHB Smokers: Variable, but usually less than 10% Toxic: 20-30% COHB Lethal: Greater than 60% COHB METHB Art 0.2 <=1.5 % [facility] LABORATORY Na Whole Blood 136 135 - 145 mmol/L [facility] LABORATORY K Whole Blood 3.7 3.5 - 5.0 mmol/L [facility] LABORATORY Comment: Please note: Patients with WBC >100,000 may have falsely elevated Potassium levels. Contact the Clinical Chemistry L aboratory if there are any questions. ICa Whole Blood 1.13 (L) 1.15 - 1.33 mmol/L [facility] LABORATORY Comment: Note: ??Total bilirubin higher than 20 m g/dL may lead to falsely low ionized calcium. CL Whole Blood 103 98 - 107 mmol/L [facility] LABORATORY Gluc Whole Bld 124 65 - 199 mg/dL [facility] LABORATORY Comment: Diabetes: >=200 mg/dL plus symp toms. Lactate WB 1.2 0.5 - 2.2 mmol/L [facility] LABORATORY Specimen Anatomical Collection Method Collection Time Receive d Time (Source) Location / / Volume Laterality Blood 10/01/2021 9:39 AM 2 9:39 EDT AM EDT Greyson Silverman MD CHEMISTRY ORDERABLES Performing Organization Address City/State/[place] [address] IR OR VASC Aniogram Image Storage Only (10/01/2021 8:51 AM EDT) Specimen (Source) Anatomical Location Collection Method / Collectio n Time Received Time / Laterality Volume Narrative DH RAD - 10/01/2021 8:51 AM EDT This exam is auto-finalizing. It's purpo se is for storage only. Greyson Silverman MD IMG FILM LIBRARY ORDERABLES Performing Organization Address City/State/ZIP Code Phon e Number RAD [place], [place] Type and Screen Validity (10/01/2021 7:30 AM EDT) [facility] gist Method Time Signature T&S only valid [facility] LABORATORY Comment: This Type and Screen result is only valid at the [facility] Specimen Anatomical Collection Method Collection Time Receive d Time (Source) Location / / Volume Laterality Blood 10/01/2021 7:30 AM 2 7:33 EDT AM EDT Resulting Agency Comment Spec In Lab Greyson Silverman MD BLOOD BANK ORDERABLES Performing Organization Address City/State/[place] [address] ABORH Recheck Status (10/01/2021 7:30 AM EDT) [facility] Sleek Audio Method Time Signature ABORH Type Completed [facility] LABORATORY Specimen Anatomical Collection Method Collection Time Receive d Time (Source) Location / / Volume Laterality Blood 10/01/2021 7:30 AM 2 7:33 EDT AM EDT Resulting Agency Comment Spec In Lab Greyson Silverman MD BLOOD BANK ORDERABLES Performing Organization Address City/State/ZIP Code [place] [address] Antibody screen (10/01/2021 7:30 AM EDT) [facility] Method Time Signature Ab Screen Negative [facility] LABORATORY Expires at 10/04/2021 ZAKIA ZHANG [id number] on: [facility] LABORATORY Specimen Anatomical Collection Method Collection Time Receive d Time (Source) Location / / Volume Laterality Blood 10/01/2021 7:30 AM 2 7:33 EDT AM EDT Resulting Agency Comment Spec In Lab Greyson Silverman MD BLOOD BANK ORDERABLES Performing Organization Address City/State/[place] [address] ABO/Rh Typing (10/01/2021 7:30 AM EDT) P athologist Signature ABORh Type A Pos [facility] LABORATORY Specimen Anatomical Collection Method Collection Time Receive d Time (Source) Location / / Volume Laterality Blood 10/01/2021 7:30 AM 2 7:33 EDT AM EDT Resulting Agency Comment Spec In Lab Greyson Silverman MD BLOOD BANK ORDERABLES Performing Organization Address City/[facility]/[place] [address] Prealbumin (10/01/2021 7:30 AM EDT) athologist Signature Prealbumin 23 20 - 40 [facility] mg/dL [facility] LABORATORY Comment: Prealbumin levels are generally lower in the pediatric population; adult concentrations are usually attained near puberty. Specimen Anatomical Collection Method Collection Time Receive d Time (Source) Location / / Volume Laterality Blood 10/01/2021 7:30 AM 2 8:03 EDT AM EDT Resulting Agency Comment Spec In Lab Greyson Silverman MD CHEMISTRY ORDERABLES Performing Organization Address City/State/[place] [address] (ABNORMAL) Basic Metabolic Panel (non-fasting) (10/01/2021 7:30 AM EDT) athologist Signature Glucose Lvl 118 65 - 199 [facility] mg/dL [facility] LABORATORY Comment: Diabetes: >=200 mg/dL plus symp toms BUN 37 (H) 8 - 18 mg/dL [facility] LABORATORY Creatinine 1.99 (H) 0.70 - 1.20 mg/dL [facility] LABORATORY Sodium 137 135 - 145 mmol/L [facility] LABORATORY Potassium 3.6 3.5 - 5.0 mmol/L [facility] LABORATORY Comment: Please note: ??Patients with WBC >100,00 0 may have falsely elevated Potassium levels. ??For accurate Potassium quantif ication in these patients send serum separator tube (gold top) for subsequent determinations. ??Contact the Clinical Chemistry Laboratory if there are any qu estions. Chloride 101 98 - 107 mmol/L [facility] LABORATORY CO2 23 22 - 31 mmol/L [facility] LABORATORY Anion Gap 13 5 - 15 mmol/L [facility] LABORATORY Calcium 9.2 8.5 - 10.5 mg/dL [facility] LABORATORY Estimated GFR 24 (L) >=60 mL/min/1.73 m?? [facility] LABORATORY Comment: This patient? s estimated [...] Organization Address City/State/[place] [address] (ABNORMAL) Hemogram (10/01/2021 7:30 AM EDT) Analysis Performed At Patho logist Time Signature WBC 6.2 4.0 - 9.5 [facility] x10(3)/[facility] LABORATORY RBC 4.56 4.00 - [place] V[facility]ENTE 5.[address] [facility] x10(6)/[facility] LABORATORY Hemoglobin 12.0 11.7 - [facility] g/dL [facility] LABORATORY Hematocrit 37.2 35.7 - [facility] 45.8 % [facility] LABORATORY MCV 81.6 (L) 82.6 - [facility]4 [facility] LABORATORY MCH 26.3 (L) 27.1 - [facility] 32.0 pg [facility] LABORATORY MCHC 32.3 31.7 - [facility] 35.0 g/dL [facility] LABORATORY Platelets 220 145 - 357 [facility] x10(3)/[facility] LABORATORY RDWSD 50.4 (H) 37.0 - [facility] 46.0 [facility] LABORATORY RDWCV 17.2 (H) 11.5 - [facility] 14.1 % [facility] LABORATORY MPV 10.5 7.6 - 12.9 [facility] LABORATORY nRBC % Auto 0.0 % [facility] LABORATORY nRBC Abs Auto 0.000 0.000 - [facility] 0.[address] [facility] x10(3)/[facility] LABORATORY Specimen Anatomical Collection Method Collection Time Receive d Time (Source) Location / / Volume Laterality Blood 10/01/2021 7:30 AM 8:03 EDT AM EDT Resulting Agency Comment Spec In Lab Greyson Silverman MD HEMATOLOGY ORDERABLES Performing Organization Address City/State/[place] [address] SCAN DOC: IMPLANTABLE DEVICES (10/01/2021 12:00 AM EDT) Narrative This result has an attachment that is no t available. Unknown MEDIA MGR SCAN EXT ORDR/RSLT documented in this encounter Visit Diagnoses Not on filedocumented in this encounter Admitting Diagnoses Diagnosis Abdominal aortic aneurysm (AAA) without rupture documented in this encounter Administered Medications Inactive Administered Medications - up to 3 most recent administrations Medication Order MAR Action Action Date Dose Rate Site acetaminophen (Tylenol) tablet Given 10/07/2021 12:31 PM EDT 1,0 00 mg 1,000 mg 1,000 mg, Oral, EVERY 6 [...] 8:09 AM EDT 12.5 mg furosemide (Lasix) tablet 20 mg Given 10/07/2021 [...] mg heparin (porcine) (5,000 units/1 mL) Given 10/07/2021 [...] Given 10/06/2021 4:03 PM EDT 25 mg isosorbide dinitrate (Isordil) tablet 20 mg Given 10/07/2021 10:25 AM EDT 20 mg 20 mg, Oral, 3 TIMES DAILY, First dose on Thu10/01/21 at 2100, Until Discontinued Given 10/07/2021 6:10 AM EDT 20 mg Given 10/06/2021 4:02 PM EDT 20 mg levothyroxine (Synthroid) tablet 50 mcg Given 10/07/2021 6:10 AM EDT 50 mcg 50 mcg, Oral, EVERY MORNING, First dose (after last reorder) on 10/02/21 at 0600, Until Discontinued, Routine Given 10/06/2021 5:10 AM EDT 50 mcg Given 10/05/2021 5:13 AM EDT 50 mcg ondansetron (pf) (Zofran) (2 mg/mL) inje ction 4 mg 4 mg, Intravenous, EVERY 8 HOURS PRN, Starting on 10/01/21 at 1301, Until Thu10/07/21 at 1614, Nausea, May repeat time s one in 30 minutes if ineffective. If multiple antiemetics are ordered, use ondansetron firs t, Recovery (Recovery-Hospital Unit) ondansetron (Zofran) tablet 4 mg 4 mg, Oral, EVERY 8 HOURS PRN, Starting on 10/01/21 at 1301, Until Thu10/07/21 at 1614, Nausea, [...] PRN, Starting on Cinthia at 0915, Until 10/07/21 at 1614, Constipation, Administer if no bowel [...] Given 10/05/2021 8:06 AM EDT 17 g senna-docusate (Pericolace) 8.6-50 mg per Given 2021 [...] this medication record., Recovery (Recovery-Hospital Unit), Routine traZODone (Desyrel) tablet 50 mg Given 10/05/2021 [...] 10/06/2021 10/07/2021 acetaminophen (Tylenol) tablet 1,000 mg 005 (Given - Provider: Crow Babb RN)0514 (Given - Provider: Crow Babb RN)1211 (Given - Provider: Eliza Casey, LAWRENCE)1743 (Given - Provider: Eliza Casey, LAWRENCE)2305 (Given - Provider: Crow Babb RN) 0509 (Given - Provider: Crow Babb RN )1145 (Given - Provider: Eliza Casey RN)1800 (Not Given - Provider: Eliza Casey RN - Reason: Patient/family refused) 0000 (Not Given - Provider: Rolo bond RN - Reason: Patient/family refused)0610 (Given - Provider: Rolo Fulton, LAWRENCE)1231 (Given - Provider: Leah Heck RN) 1,000 [...] Discontinued, Routine atorvastatin (Lipitor) tablet 20 mg 1743 (Given - Prov ider: Eliza Casey RN) 1602 (Given - Provider: Eliza Casey RN) 20 mg, Oral, EVERY EVENING, First dose o n Thu10/01/21 at 1700, Until Discontinued, Routine bisacodyL (Dulcolax) [...] Discontinued, Routine carvediloL (Coreg) tablet 12.5 mg 08 (Given - Provid er: Eliza Casey RN)2018 (Given - Provider: Crow Babb RN) 0809 (Given - Provider: Eliza Casey, LAWRENCE)2236 (Given - Provider: Sol Mehta RN) 0832 (Given - Provider: Leah Heck RN) 12.5 mg, Oral, 2 TIMES DAILY, First dose on Thu10/02/21 at 1200, Until Discontinued, Routine furosemide (Lasix) tablet 20 mg 08 (Given - Provider : Eliza Casey RN)1744 (Given - Provider: Eliza Casey RN) 0809 (Given - Provider: Eliza Casey, LAWRENCE)1603 (Given - Provider: Eliza Casey RN) 0832 (Given - Provider: Leah Heck RN) 20 mg, Oral, 2 TIMES DAILY, First dose o n Thu10/02/21 at 1700, Until Discontinued, Routine gabapentin (Neurontin) capsule 300 mg 2018 (Given - Provider : Crow Babb RN) 2236 (Given - Provider: Sol Mehta RN) 300 mg, Oral, NIGHTLY, First dose on Thu10/01/21 at 2100, Until Discontinued, Routine heparin (porcine) (5,000 units/1 mL) subcutaneous inje ction 5,000 Units 0514 (Given - Provider: Crow Babb RN)1534 (Given - Provider: Eliza Casey RN)2247 (Given - Provider: Crow Babb RN) 0510 (Given - Provider: Crow Babb RN)1603 (Given - Provider: Eliza Casey RN)2200 (Not Given - Provider: Rolo Fulton RN - Reason: Patient/family refused) 0610 (Given - Provider: Rolo Fulton, RN)1400 (Due - Provider: Admin Adt) 5,000 Units, Subcutaneous, EVERY 8 HOURS SCHEDULED, First dose on Thu10/02/21 at 2200, Until Discontinued, Routine hydrALAZINE (Apresoline) tablet 25 mg 0806 (Given - Pr ovider: Eliza Casey, LAWRENCE)1534 (Given - Provider: Eliza Casey, LAWRENCE)2019 (Given - Provider: Crow Babb RN) 0809 (Given - Provider: Eliza Casey, LAWRENCE)1603 (Given - Provider: Eliza Casey, LAWRENCE)2238 (Given - Provider: Sol Mehta RN) 0832 (Given - Provider: Leah Heck, LAWRENCE) 25 mg, Oral, 3 TIMES DAILY, First dose o n Thu10/04/21 at 0900, Until Discontinued, Take with Food, Routine isosorbide dinitrate (Isordil) tablet 20 mg 0513 (Give n - Provider: rCow Babb RN)1211 (Given - Provider: Eliza Casey, LAWRENCE)1534 (Given - Provider: Eliza Casey, LAWRENCE) 0509 (Given - Provider: Crow Babb RN )1145 (Given - Provider: Eliza Casey, LAWRENCE)1602 (Given - Provider: Eliza Casey, LAWRENCE) 0610 (Given - Provider: Rolo Fulton, LAWRENCE)1025 (Given - Provider: Leah Heck, LAWRENCE) 20 mg, Oral, 3 TIMES DAILY, First dose o n Thu10/01/21 at 2100, Until Discontinued levothyroxine (Synthroid) tablet 50 mcg 0513 (Given - Provider: Crow Babb RN) 0510 (Given - Provider: Crow Babb RN) 0610 (Given - Provider: Rolo Fulton, LAWRENCE) 50 mcg, Oral, EVERY MORNING, First dose (after last reorder) on Thu10/02/21 at 0600, Until Discontinued, Routine polyethylene glycoL (Miralax) packet 17 g 0806 (Given - Provider: Eliza Casye RN) 0808 (Given - Provider: Eliza Casey RN) 0831 (Giv en - Provider: Leah Heck, LAWRENCE) 17 g, Oral, DAILY, First dose on 09/25 at 1015, Until Discontinued, Routine potassium chloride ER (K-Dur/Klor-Con) tablet 40 mEq (COMPLETED) 1025 (Given - Provider: Leah Heck, LAWRENCE) 40 mEq, Oral, ONCE, 1 dose, On Thu at 1030, 20 mEq tablet may be dissolved in water for administration, Routine senna-docusate (Pericolace) 8.6-50 mg per tablet 2 tab let 0806 (Given - Provider: Eliza Casey, RN)2018 (Given - Provider: Crow Babb RN) 08 (Given - Provider: Eliza Casey, LAWRENCE)2237 (Given - Provider: Sol Mehta, LAWRENCE) 0832 (Given - Provider: Krish Caballero) 2 [...] at 1301, Until Thu10/07/21 at 1614, Nausea, May repeat times one [...] EVERY 1 MIN PRN, S tarting on e 10/01/21 at 1301, Until Thu10/07/21 at 1614, flush, Flush pertains to all indwelling lines. Flush per protocol found in the job aid using the link pr ovided on this medication record., Recovery (Recovery-Hospital U nit), Routine traZODone (Desyrel) tablet 50 mg 2019 (Given - Provider: Crow Babb RN) 50 mg, Oral, NIGHTLY PRN, Starting on e 10/01/21 at 1327, Until Thu10/07/21 at 1614, Sleep, Routine Linked Groups Order Group 1: ondansetron (Zofran) tablet 4 mgJump to med 4 mg, Oral, EVERY 8 HOURS PRN, Starting on e 10/01/21 at 1301, Until Thu10/07/21 at 1614, Nausea, [...] Unit) documented in this encounter Care Teams Corporate Treasury Analyst Relationship Specialty Start Date End Date Sanjuanita Lee MD PCP - General 03/05/13 12/23/[address] [place] [address] documented as of this encounter
--- OUTSIDE RECORDS SUMMARY | 2022-02-22 23:28 | XMS_ITS | Encounter Summary ---
:1950 Author Organization [facility] [place] [address] Care Team Providers Name Role Phone Sanjuanita Lee MD Primary Care Provider Encounter Details Date Type Department Care Team Description 07/05/2021 Telephone Nephrology Hypertension at [facility] sa, [place] [phone] Social History Tobacco Use Types Packs/Day [...] Telephone Encounter - Rashmi Vega RN - 07/05/2021 1:44 PM EST S/O: patient called with questions regarding the iron infusion she received back in 2019 at [facility]. She had an adverse reaction involving SOB that sent her to the ED and she was subsequently transferred here. Patient wanted to know if the iron or the saline would have been the culprit for such a reaction. RN consulted Christopher for adverse reactions with iron sucrose. While unusual, this could have been the cause for the reaction she experienced. It would be unlikely that normal saline would cause a reaction like this, especially in such as small amount in a timeframe of one and a half hours as it is given during the iron infusion. Patient is inquiring because she had a CT Scan with IV fluids involved through Dr. Moody and it wascanceled after questioning the reaction she had previously. She has not heard from Dr. Moody's office regarding a reason why it was canceled and would like to find this information out. RN encouraged patient to call the Vascular Surgery office to see if someone could answer these questions, since RN does not have access to that information. P: Patient will follow up with Vascular Surgery regarding the canceled test. Patient will contact RNif she has other questions. documented in this encounter Plan of Treatment Scheduled Procedures Name Priority Associated Diagnoses Date/Time EGD, UPPER GI ENDOSCOPY Gastroesophageal reflux disease, esophagitis presence not specifi ed documented as of this encounter Visit Diagnoses Not on filedocumented in this encounter Care Teams Muffle Worker Relationship Specialty Start Date End Date Sanjuanita Lee MD PCP - General 03/05/13 12/23/[address] [place] [address] documented as of this encounter
--- OUTSIDE RECORDS SUMMARY | 2022-02-22 23:28 | XMS_ITS | Encounter Summary ---
:1950 Author Organization [facility] [place] [address] Care Team Providers Name Role Phone Sanjuanita Lee MD Primary Care Provider Encounter Details Date Type Department Care Team Description 07/04/2021 [place] [address] Social History Tobacco Use Types Packs/Day [...] on filedocumented in this encounter Care Teams Talkback Host Relationship Specialty Start Date End Date Sanjuanita Lee MD PCP - General 03/05/13 12/23/[address] [place] [address] documented as of this encounter
--- OUTSIDE RECORDS SUMMARY | 2022-02-22 23:28 | XMS_ITS | Encounter Summary ---
:1950 Author Organization [facility] Address [address] [place] [address] Care Team Providers Name Role Phone Sanjuanita Lee MD Primary Care Provider Reason for Visit Auth/Cert Specialty Diagnoses / Procedures Referred By Contact Refer red To Contact Diagnoses Abdominal aortic aneurysm (AAA) without rupture Enlarging Fusiform AAA Procedures PRO VISCERAL AND INFRARENAL ABDOM AORTA ONE PROSTHESIS @EVG REPAIR VISCERAL & INFRARENAL [facility] AORTA,FENESTRATED,ONE ARTERY,INC. S&I ([place] [address].3) Referral ID Status Reason Start Date Expiration Date Visits Requ ested Visits Authorized [id number] 1 1 Encounter Details Date Type Department Care Team Description 10/01/2021 Surgery Main Operating Room Greyson Silverman, @E VG REPAIR VISCERAL & Mariama Pang MD INFRARENAL [facility] AORTA,FENESTRATED,[facility] ARTERY,INC. S&I ([facility] VASCULAR SURGERY .3) [place] [address] [place] [address] [phone] (Wo rk) Social History Tobacco Use Types [...] Reading Time Taken Comments Blood Pressure 145/65 10/01/2021 7:10 AM EDT Pulse 68 10/01/2021 7:10 AM EDT Temperature 36 ??C (96.8 ??F) 10/01/2021 7:10 AM EDT Respiratory Rate 16 10/01/2021 7:10 AM EDT Oxygen Saturation 95% 10/01/2021 7:10 AM EDT Inhaled Oxygen Concentration - - Weight [...] aortic endograft ?-Thoracic component - Cook Zenith Alpha??[id number]??via left groin ?- Visceral component - Cook Zenith Alpha??[id number]-89-30-161-[id number]??via left groin ?- SMA -??10??x 39??mm??VBX, proximally flared??12??mm ?- Distal extension ?- Idanha [id number] main body, left ?-??Idanha [id number] right limbextension Patent bilateral hypogastric artery Good [...] 10/30/2021 7:00 AM LAB, THREE L Lab [address] [place] [address] Arrive at: [place] [phone] 10/30/2021 7:30 AM Lola Willoughby RVT Vascular Lab at [facility] Arrive at: [place] [phone] 10/30/2021 9:15 AM [facility] CT 4 CT Scan at [facility] Arrive at: RADIOLOGY [phone] Please arrive at the Lab 1 Hour and 15 Minutes prior to your scheduled time if your labs need to betaken. 10/30/2021 10:00 AM Heladio Rowe RVT Vascular Lab at [facility] Arrive at: [place] [phone] 10/30/2021 1:00 PM Greyson Silverman MD Vascular Surgery at [facility] Arrive at: [place] 3V [phone] 11/28/2021 10:40 AM LAB, THREE L Lab [facility] Arrive at: [place] 3L [phone] 11/28/2021 11:20 AM Transport Driver, Benjamin; Tyron Kemp MD Nephrology Hypertension at [facility] Arrive at: [place] [phone] Future Orders Complete By Expires AAA Duplex, Complete/Bilateral [VAS51 Custom] 11/06/2021 (Approximate) 05/08/2022 Process Instructions: There is no in-house vascular chemical laboratory tester available on weeknights (5pm-8am), weekends, or holidays. IF THIS IS A REQUEST FOR AN EMERGENT STUDY DURING THOSE HOURS, please have the senior provider responsible for the patient page the Vascular Surgery Fellow/Senior Resident telephoner to discuss options. Scheduling Instructions: Questions: Indication for study/signs & symptoms: [place] PMEG Question to be answered: aorta with endoleak? Preferred location?: [facility] Creatinine [LAB66 Custom] 11/06/2021 05/08/2022 Process Instructions: Scheduling Instructions: Comments: Questions: CT Chest Abdomen Pelvis w Contrast (Generic) [[id number] Custom] 11/06/2021 05/08/2022 Process Instructions: Scheduling Instructions: Questions: Clinical information / burgess questions for radiologist: NON CONTRAST ONLY Where will study be performed?: [facility] Radiology Stat read required?: Does patient require sedation?: GA rationale: Date of injury if applicable: Duplex Study Visceral Arteries, Comp [VAS54 Custom] 11/06/2021 (Approximate) 05/08/2022 Process Instructions: There is no in-house vascular chemical laboratory tester available on weeknights (5pm-8am), weekends, or holidays. IF THIS IS A REQUEST FOR AN EMERGENT STUDY DURING THOSE HOURS, please have the senior provider responsible for the patient page the Vascular Surgery Fellow/Senior Resident telephoner to discuss options. Scheduling Instructions: Questions: Indication for study/signs & symptoms: SMA artery with PMEG Dr. Silverman Question to be answered: patent? stenosis? Preferred location?: [facility] Renal Artery Duplex, Unil [VAS48 Custom] 11/06/2021 05/08/2022 Process Instructions: There is no in-house vascular chemical laboratory tester available on weeknights (5pm-8am), weekends, or holidays. IF THIS IS A REQUEST FOR AN EMERGENT STUDY DURING THOSE HOURS, please have the senior provider responsible for the patient page the Vascular Surgery Fellow/Senior Resident telephoner to discuss options. Scheduling Instructions: Questions: Laterality: Right Indication for study/signs & symptoms: s/p PMEG Question to be answered: right renal artery bypass with PMEG Preferred location?: [facility] Anticoagulation & Antiplatelet: Anticoagulation: none Antiplatelet: Agent: ASA Indication: ASCVD Intended Duration: USP For questions regarding these medications, please contact: [...] Discharge: Patient Instructions You were admitted to [facility] after having your aortic aneurysm repaired with [...] For any problems or questions please call [phone] For issues on weeknights after 5pm and weekends please call [phone] and ask for the Vascular Fellow telephoner. documented in this encounter Discharge Instructions Patient InstructionsCandida Velez APRN - 10/04/2021 10:22 AM EDT You were admitted to [facility] after having your aortic aneurysm repaired with [...] For any problems or questions please call [phone] For issues on weeknights after 5pm and weekends please call [phone] and ask for the Vascular Fellow telephoner. documented in this encounter Medications at Time [...] Date ??? AAA (abdominal aortic aneurysm) ? [id number] angiogram; 3.2 cm infrarenal ??? Constipation ? [...] outcome. 15 minutes; evaluation Bella Curran OT #[id number] Elma Saab, PT - 10/07/2021 9:01 AM EDT Images from the original note were not included. Physical Therapy Evaluation Patient profile: Pretty Harmon is a 70 y.o. female now s/p PMEG with 1 vessel fenestration (SMA) on 10/01, currently recovering well. Patient with the following active problems: Past Medical History: Diagnosis Date ??? AAA (abdominal aortic aneurysm) [id number] angiogram; 3.2 cm infrarenal ??? Constipation ??? [...] (WRVU 6.99) performedby Greyson Chen MD at [facility] MAIN OR ??? PRO EXPLORATION OF ABDOMEN N/A 04/26/2020 @EXPLORATORY LAPAROTOMY, WITH/WITHOUT BIOPSY(S) (WRVU 12.54) performed by Edwin Hwang MD at [facility] MAIN OR ??? PRO SIGMOIDOSCOPY, DIAGNOSTIC N/A 10/03/2021 FLEXIBLE SIGMOIDOSCOPY performed by Silver Rossi MD at [facility] ENDOSCOPY ??? PRO UPPER GI ENDOSCOPY, DIAGNOSTIC 01/20/2014 EGD, UPPER GI ENDOSCOPY performed by Corby Cano MD at [facility] ENDOSCOPY ??? PRO UPPER GI ENDOSCOPY, DIAGNOSTIC N/A 07/28/2017 EGD, UPPER GI ENDOSCOPY performed by Snow Liao MD at [facility] ENDOSCOPY ??? PRO VEIN BYPASS GRAFT, AORTOILIOFEMORAL N/A 09/07/2018 @BYPASS GRAFT, AORTOILIAC W\ VEIN CONDUIT (WRVU 41.88) performed by Isac Moody MD at [facility] MAIN OR ??? PRO VISCERAL AND INFRARENAL ABDOM AORTA ONE PROSTHESIS N/A 10/01/2021 @EVG REPAIR VISCERAL & INFRARENAL ABDML AORTA,FENESTRATED,ONE ARTERY,INC. S&I (WRVU 77.3) performed by Greyson Silverman MD at [facility] MAIN OR ??? VS ARTERIOGRAM RENAL VASCULAR SURGERY 08/01/2021 VS Arteriogram Renal Vascular Surgery 08/01/2021 Isac Moody MD [facility] INTERVENTIONL RAD Social History: Patient lives [...] in Neurologic Physical Therapy Inpatient/outpatient Rehab [facility] Candida Velez APRN - 10/06/2021 6:52 [...] hours. Recent Labs 10/01/21 0939 PHART 7.38 [id number] 41 PO2ART 276* [id number] 23.3 Vascular Studies None pertinent Problem List [...] [facility] Candida Velez APRN Vascular Surgery Pager: [phone] 10/06/21 Arabella Walden MD - 10/05/2021 7:49 [...] hours. Recent Labs 10/01/21 0939 PHART 7.38 NXT2BAL 41 PO2ART 276* [id number] 23.3 Vascular Studies None pertinent Problem List [...] [facility] Arabella Walden MD Vascular Surgery Pager: [phone] 10/05/21 Bry Valentin MD - 10/04/2021 9:17 [...] bilaterally Labs Recent Labs 10/04/21 0120 10/03/21 0905 10/03/21 0115 WBC 26.8* 24.2* 23.3* HGB 10.2* [...] BILITOT 0.4 BILIDIR 0.1 Recent Labs 10/04/21 0120 10/03/21 0905 10/03/21 0115 10/02/21 0030 CALCIUM 8.3* 8.4* 8.2* 8.1* PHOS -- -- 3.6 4.1 MAGNESIUM -- -- 1.23* 0.77 No results for input(s): PT, PTT, INR in the last 168 hours. Recent Labs 10/01/21 0939 PHART 7.38 [id number] 41 PO2ART 276* [id number] 23.3 Vascular Studies None pertinent Problem List [...] regimen Bry Valentin MD Vascular Surgery Pager: [phone] 10/04/21 Lianna Harrison RN - 10/03/2021 3:29 [...] (I/O) 10/02 700 - 10/03 07 In: 2375 [P.O.:2049; I.V.:325] Out: 2034 [Urine:2034] ?? Physical [...] and Outs (I/O) 10/02 700 - 10/03 699 In: 2374 [...] PT pulses bilaterally Labs Recent Labs 10/03/21 01110/02/21 0030 10/01/21 1720 WBC 23.3* 13.2* 12.2* [...] the last 168 hours. Recent Labs 10/03/21 01110/02/21 0030 10/01/21 0730 CALCIUM 8.2* 8.1* 9.2 PHOS 3.6 4.1 -- MAGNESIUM 1.23* 0.77 -- No results for input(s): PT, PTT, INR in the last 168 hours. Recent Labs 10/01/21 0939 PHART 7.38 [id number] 41 PO2ART 276* [id number] 23.3 Vascular Studies None pertinent Problem List [...] Dr. 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 as calculated from the following: Height as of this encounter: 152.4 cm (5'). Weight as of this encounter: 45.9 kg (101 lb 3.2 oz). [place] Body Weight: 45.5 kg Usual Body Weight: [...] line): None present Lean muscle loss to [place] region (temporalis muscle): None present Clavicle bone [...] inpatient Thank you, KAREN HAWKINS RD Pager #:[phone] Greyson Chase APRN - 10/02/2021 1:04 PM EDT ICU Transfer Note DOA: 10/01/2021 Diet: Regular diet Code: Attempt Cardiopulmonary Resuscitation - Inpatient Room: 06/[facility] ID: Pretty Harmon is a 70 y.o. [...] Physician: Greyson Silverman MD Patient ID Pretty Harmno is a 70 year old woman with [...] hours. Recent Labs 10/01/21 0939 PHART 7.38 [id number] 41 PO2ART 276* BBC5DFL 23.3 Vascular Studies None pertinent Problem List [...] SICU Fili Woodward MD Vascular Surgery Pager: [phone] 10/02/21 Candida Epps RN - 10/02/2021 3:00 [...] care Surveillance [continuous indirect monitoring]: ICU monitoring YT Yuki Fam RN - 10/01/2021 4:43 PM [...] postoperatively Fili Woodward MD Vascular Surgery Pager: [phone] 10/01/21 documented in this encounter H&P Notes [...] Diagnosis Date ??? AAA (abdominal aortic aneurysm) [id number] angiogram; 3.2 cm infrarenal ??? Constipation ??? [...] (WRVU 6.99) performedby Greyson Chen MD at [facility] MAIN OR ??? PRO EXPLORATORY OF ABDOMEN N/A 04/26/2020 @EXPLORATORY LAPAROTOMY, WITH/WITHOUT BIOPSY(S) (WRVU 12.54) performed by Edwin Hwang MD at [facility] MAIN OR ??? PRO UPPER GI ENDOSCOPY, DIAGNOSTIC 01/20/2014 EGD, UPPER GI ENDOSCOPY performed by Corby Cano MD at [facility] ENDOSCOPY ??? PRO UPPER GI ENDOSCOPY, DIAGNOSTIC N/A 07/28/2017 EGD, UPPER GI ENDOSCOPY performed by Snow Liao MD at [facility] ENDOSCOPY ??? PRO VEIN BYPASS GRAFT, AORTOILIOFEMORAL N/A 09/07/2018 @BYPASS GRAFT, AORTOILIAC W\ VEIN CONDUIT (WRVU 41.88) performed by Isac Moody MD at [facility] MAIN OR ??? VS ARTERIOGRAM RENAL VASCULAR SURGERY 08/01/2021 VS Arteriogram Renal Vascular Surgery 08/01/2021 Isac Moody MD [facility] INTERVENTIONL RAD Prior To Admission Medications: [...] Pack years: 22.50 Types: Cigarettes Quit date: 2008 Years since quittin.4 ??? Smokeless tobacco: Never [...] Rodolfo of 50 years. 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 No history of heavy etoh [...] Range Ab Screen Interp Negative Expires at 2439 on: 10/04/2021 ABORH Recheck Status Result Value Ref Range ABORH Type Recheck Completed Type and Screen Validity Result Value Ref Range T&S only valid at [facility] Hosp BLOOD GAS 2 ARTERIAL Result Value [...] Diagnosis Date ??? AAA (abdominal aortic aneurysm) [id number] angiogram; 3.2 cm infrarenal ??? Constipation ??? [...] (WRVU 6.99) performedby Greyson Chen MD at [facility] MAIN OR ??? PRO EXPLORATORY OF ABDOMEN N/A 04/26/2020 @EXPLORATORY LAPAROTOMY, WITH/WITHOUT BIOPSY(S) (WRVU 12.54) performed by Edwin Hwang MD at [facility] MAIN OR ??? PRO UPPER GI ENDOSCOPY, DIAGNOSTIC 01/20/2014 EGD, UPPER GI ENDOSCOPY performed by Corby Cano MD at [facility] ENDOSCOPY ??? PRO UPPER GI ENDOSCOPY, DIAGNOSTIC N/A 07/28/2017 EGD, UPPER GI ENDOSCOPY performed by Snow Liao MD at [facility] ENDOSCOPY ??? PRO VEIN BYPASS GRAFT, AORTOILIOFEMORAL N/A 09/07/2018 @BYPASS GRAFT, AORTOILIAC W\ VEIN CONDUIT (WRVU 41.88) performed by Isac Moody MD at [facility] MAIN OR ??? VS ARTERIOGRAM RENAL VASCULAR SURGERY 08/01/2021 VS Arteriogram Renal Vascular Surgery 08/01/2021 Isac Moody MD [facility] INTERVENTIONL RAD Functional Status/Social Hx: Lives [...] Type: *No Product type* / Secondary Insurance: [employer] [place] Prescription Coverage: Yes This plan was formulated with input from patient and team. All are in agreement with plan. Valeria HARMAN RN CM Phone: [phone] Pager: [phone] Plan of Care - Eliza Casey RN [...] ADLs]: Eyes on Surveillance [continuous indirect monitoring]: dietero purposeful rounding Patient-specific fall prevention interventions for [...] Type: *No Product type* / Secondary Insurance: [facility] [place] Last Physical Therapy Recommendation: with Last [...] Anticipated Date of Discharge: Valeria HARMAN, RN Phone: [phone] Pager: [phone] Plan of Care - Eliza Casey RN [...] Operative Note Patient Name: Pretty Harmon : [id number] MR#: [id number] Case Date: 10/03/2021 Surgeon: Surgeon(s) and Role: [...] Diagnosis Date ??? AAA (abdominal aortic aneurysm) [id number] angiogram; 3.2 cm infrarenal ??? Constipation ??? [...] (WRVU 6.99) performedby Greyson Chen MD at [facility] MAIN OR ??? PRO EXPLORATION OF ABDOMEN N/A 04/26/2020 @EXPLORATORY LAPAROTOMY, WITH/WITHOUT BIOPSY(S) (WRVU 12.54) performed by Edwin Hwang MD at [facility] MAIN OR ??? PRO UPPER GI ENDOSCOPY, DIAGNOSTIC 01/20/2014 EGD, UPPER GI ENDOSCOPY performed by Corby Cano MD at [facility] ENDOSCOPY ??? PRO UPPER GI ENDOSCOPY, DIAGNOSTIC N/A 07/28/2017 EGD, UPPER GI ENDOSCOPY performed by Snow Liao MD at [facility] ENDOSCOPY ??? PRO VEIN BYPASS GRAFT, AORTOILIOFEMORAL N/A 09/07/2018 @BYPASS GRAFT, AORTOILIAC W\ VEIN CONDUIT (WRVU 41.88) performed by Isac Moody MD at [facility] MAIN OR ??? PRO VISCERAL AND INFRARENAL ABDOM AORTA ONE PROSTHESIS N/A 10/01/2021 @EVG REPAIR VISCERAL & INFRARENAL ABDML AORTA,FENESTRATED,ONE ARTERY,INC. S&I (WRVU 77.3) performed by Greyson Silverman MD at [facility] MAIN OR ??? VS ARTERIOGRAM RENAL VASCULAR SURGERY 08/01/2021 VS Arteriogram Renal Vascular Surgery 08/01/2021 Isac Moody MD [facility] INTERVENTIONL RAD SOCIAL HX: Social History Socioeconomic History ??? Marital status: Spouse name: Not on file ??? Number of children: Not on file ??? Years of education: Not on file ??? Highest education level: Not on file Occupational History ??? Not on file Tobacco Use ??? Smoking status: Former Smoker Packs/day: 0.50 Years: 45.00 Pack years: 22.50 Types: Cigarettes Quit date: 2008 Years since quittin.4 ??? Smokeless tobacco: Never Used ??? Tobacco comment: smoked for ~45 years up to 1 ppd at [place], quit ~1999 Vaping Use ??? Vaping Use: [...] Rodolfo of 50 years. 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 No history of heavy etoh [...] Resp: [10-23] SpO2 SpO2: [84 %-100 %] IO 10/02 0701 - 10/03 0700 In: 2375 [...] Aniogram Image Storage Only Final Result ENDOSCOPY: [place] (06/2019): Sigmoid diverticulosis ASSESSMENT & PLAN: Abdominal [...] them as documented. Silver Rossi MD, MS emergency medicine physician Processing Technician, Gastroenterology and Hepatology Plan of Care - [...] COVID test: Lab Results Component Value Date [id number] Not Detected 10/01/2021 Past medical History: Past Medical History: Diagnosis Date ??? AAA (abdominal aortic aneurysm) [id number] angiogram; 3.2 cm infrarenal ??? Constipation ??? Dyslipidemia ??? Hypertension ??? Insomnia ??? Peripheral vascular disease ??? Renal artery stenosis R; per 2010 angiogram ??? SBO (small bowel obstruction) Hospitalizations [...] Current DME: none Home Address confirmed as: [address] [address] [place] [address] Social & Family Supports: All names listed below confirmed with patient as current and correct Extended Emergency Contact Information Primary Emergency Contact: Rodolfo Harmon Address: [address] [address] [facility] [place] Relation: Spouse Secondary Emergency Contact: Mary Harmon Address: [address] [place] [address] [facility] [employer] Relation: Child Current Care Provided by: [...] Type: *No Product type* / Secondary Insurance: [employer] [facility] Prescription Coverage: Yes Preferred Pharmacy: [facility] - [place], [place] - [address] [place] [id number] Status: Patient is a : No Primary Care Provider: Sanjuanita Lee MD [phone] Patient/Caregiver Goals of Treatment: I have had [...] assist with transition of care planning. Rosalia Serrnao RN [facility] Phone [phone] Pager [phone] Brief Op Note - Stephanie Cevallos MD - 10/01/2021 5:59 PM EDT Brief Operative Note Patient Name: Pretty Harmon : [id number] MR#: [id number] Case Date: 10/01/2021 Surgeon: Surgeon(s) and Role: [...] endograft -Thoracic component - Cook Zenith Alpha [id number] via left groin ?- Visceral component - Cook Zenith Alpha??[id number]-[id number] via left groin ?- SMA -??10 x 39 mm VBX, proximally flared 12 mm - Distal extension - Idanha [id number] main body, left - Idanha [id number] right limb extension Patent bilateral hypogastric artery Good hemostasis with bilateral pre-close technique (right x 2, left x 2). Bilateral??warm feet with??palpable DP/PT bilaterally Neuro exam normal at the completion of the case. Patient moving all four extremities to command. ?? Op Note - Stephanie Cevallos MD - 10/01/2021 9:42 AM EDT [facility] Operative Note Patient Name: Pretty Harmon : [id number] MR#: [id number] Case Date: 10/01/2021 Surgeon: Surgeon(s) and Role: [...] endograft -Thoracic component - Cook Zenith Alpha [id number] via left groin ?- Visceral component - Cook Zenith Alpha??[id number]-[id number] via left groin ?- SMA -??10 x 39??mm VBX, proximally flared 12??mm ?- Distal extension ?- Idanha [id number] main body, left ?- Idanha [id number] right limb extension Patent bilateral hypogastric artery [...] with a PTFE sealing ring along with a??[place] coil, which were sewn circumferentially to the [...] balloon. Distally the Cook endografts wereextended with??the Idanha Excluder as above via the left side. [...] artery bilaterally. The proximal portion of the Idanha Excluder and all iliac overlap zones was ballooned with a MOB balloon on both sides. Two [place] balloons, in a kissing fashion, were used [...] i n the results section. FLEXIBLE SIGMOIDOSCOPY Routine 10/03/2021 2:25 PM Results [...] Component Value Ref Test Analysis Performed At [facility] gist Range Method Time Signature VB Text Department: Vascular Surgery Lab VASCUBASE Report Patient: [id number] (PRETTY HARMON) CPT: 85329 Referring Physician: CANDIDA VELEZ ?? Indications: ??hx [...] thoracoabdominal aortic endograft. Decreased size of infrarenal [place] abdominal aortic aneur ysm sac dimensions. Thank you for letting us participate in the care of this patient. ??If you are a health care provider and have any questi ons regarding this report, please contact the number below. ??For patients who have questions please contact the health care management associate that requested your imaging first. ? Narrative [...] Decreased size of infrarenal abdominal a ortic [place] aneurysm sac, measuring approximately 3.6 x 4.1 [...] Decreased size of infrarenal abdominal a ortic [place] aneurysm sac, measuring approximately 3.6 x 4.1 [...] a ortic endograft. Decreased size of infrarenal [place] abdominal aortic aneur ysm sac dimensions. Thank you for letting us participate in the care of this patient. If you are a health care provider and have any questi ons regarding this report, please contact the number below. For patients w ho have questions please contact the health care management associate that requested your imaging first. Domingo Coy MD IMG CT ORDERABLES AAA Duplex, Complete/Bilateral (10/30/2021 7:32 AM EDT) Component Value Ref Test Analysis Performed At [facility] Range Method Time Signature VB Text Department: Vascular Surgery Lab VASCUBASE Report Patient: [id number] (PRETTY HARMON) CPT: 18207 Referring Physician: CANDIDA VELEZ ?? Indications: s/p [...] Value Ref Test Analysis Performed At [facility] Range Method Time Signature VB Text Department: Vascular Surgery Lab VASCUBASE Report Patient: [id number] (PRETTY HARMON) CPT: 23556 Referring Physician: CANDIDA VELEZ ?? Indications: history [...] Velez APRN VASCULAR ORDERABLES Performing Organization Address City/[facility]/ZIP Code Phon e Number VASCUBASE (ABNORMAL) Creatinine (10/30/2021 7:03 AM EDT) Analysis Performed At Patho logist Time Signature Creatinine 3.04 (H) 0.70 - MARIAMA BLUNTCK 1.20 mg/dL [facility] Estimated GFR 16 (L) >=60 [place] ZHANG mL/min/1.7 [facility] 3 ?? HOSPITAL LABORATORY Comment: This patient's estimated GFR [...] Velez APRN CHEMISTRY ORDERABLES Performing Organization Address City/[facility]/[place] [address] (ABNORMAL) Differential, Automated (10/07/2021 6:36 AM EDT) [facility] Method Time Signature Neutrophils % 61.1 % [facility] Neutr Abs (ANC) 7.16 (H) 1.70 - [facility] 6.10 [facility] x10(3)/[facility] LABORATORY Lymphocytes % 13.2 % [facility] Lymphocytes Abs 1.6 0.9 - 3.2 [facility] x10(3)/[facility] LABORATORY Monocytes % 14.7 % [facility] Monocyte Abs 1.7 (H) 0.3 - 0.9 [facility] x10(3)/[facility] LABORATORY Eosinophils % 6.3 % [facility] Eosinophils Abs 0.7 (H) 0.0 - 0.4 [facility] x10(3)/[facility] LABORATORY Basophils % 0.7 % [facility] Basophils Abs 0.1 0.0 - 0.1 [facility] x10(3)/[facility] LABORATORY Immature Gran % 4.00 % [facility] LABORATORY Comment: Immature granulocytes(IG's)percentage an d absolute count will include metamyelocytes, myelocytes, and promyelo cytes. Blood smears from CBCs yielding IG's will be scanned manually for concor dance. If this scan disagrees with the automated IG or if promyelocytes are not ed, a manual differential will be performed. Blanca Gran Abs 0.47 (H) 0.00 - 0.04 x10(3)/[facility] LABORATORY Specimen Anatomical Collection Method Collection Time Receive d Time (Source) Location / / Volume Laterality Blood 10/07/2021 6:36 AM 7:21 EDT AM EDT Resulting Agency Comment Spec In Lab Fili Woodward MD HEMATOLOGY ORDERABLES Performing Organization Address City/State/[place] [address] (ABNORMAL) Hemogram (10/07/2021 6:36 AM EDT) Patholo gist Method Time Signature WBC 11.7 (H) 4.0 - 9.5 [facility](3[facility] LABORATORY RBC 3.88 (L) 4.00 - [place] 5.21 [facility] x10(6)/[facility] LABORATORY Hemoglobin 10.0 (L) 11.7 - [place] 15.5 g/dL [facility] LABORATORY Hematocrit 30.4 (L) 35.7 - [place] 45.8 % [facility] LABORATORY MCV 78.4 (L) 82.6 - [facility] 94[facility]4 [facility] LABORATORY MCH 25.8 (L) 27.1 - [place] 32.0 pg [facility] LABORATORY MCHC 32.9 31.7 - [facility] 35.0 g/dL [facility] LABORATORY Platelets 272 145 - 357 [facility] x10(3)/[facility] LABORATORY RDWSD 50.4 (H) 37.0 - [facility] 46.0 [facility] LABORATORY RDWCV 17.6 (H) 11.5 - [facility] 14.1 % [facility] LABORATORY MPV 11.6 7.6 - 12.9 [facility] LABORATORY nRBC % Auto 0.2 % [facility] LABORATORY nRBC Abs Auto 0.020 (H) 0.000 - [facility] 0.000 [facility] x10(3)/[facility] LABORATORY Specimen Anatomical Collection Method Collection Time Receive d Time (Source) Location / / Volume Laterality Blood 10/07/2021 6:36 AM 7:21 EDT AM EDT Resulting Agency Comment Spec In Lab Fili Woodward MD HEMATOLOGY ORDERABLES Performing Organization Address City/State/[place] [address] (ABNORMAL) Basic Metabolic Panel (non-fasting) (10/07/2021 6:36 AM EDT) P athologist Signature Glucose Lvl 91 65 - 199 [facility] mg/dL [facility] LABORATORY Comment: Diabetes: >=200 mg/dL plus symp toms BUN 43 (H) 8 - 18 mg/dL [facility] LABORATORY Creatinine 2.41 (H) 0.70 - 1.20 mg/dL [facility] LABORATORY Sodium 132 (L) 135 - 145 mmol/L [facility] LABORATORY Potassium 3.5 3.5 - 5.0 mmol/L [facility] LABORATORY Comment: Please note: ??Patients with WBC >100,00 0 may have falsely elevated Potassium levels. ??For accurate Potassium quantif ication in these patients send serum separator tube (gold top) for subsequent determinations. ??Contact the Clinical Chemistry Laboratory if there are any qu estions. Chloride 95 (L) 98 - 107 mmol/L [facility] LABORATORY CO2 20 (L) 22 - 31 mmol/L [facility] LABORATORY Anion Gap 17 (H) 5 - 15 mmol/L [facility] LABORATORY Calcium 8.3 (L) 8.5 - 10.5 mg/dL [facility] LABORATORY Estimated GFR 19 (L) >=60 mL/min/1.73 m?? [facility] LABORATORY Comment: This patient? s estimated glomerular [...] Organization Address City/State/[place] [address] (ABNORMAL) Differential, Automated (10/06/2021 3:15 AM EDT) [facility] gist Method Time Signature Neutrophils % 76.0 % [facility] LABORATORY Neutr Abs (ANC) 11.80 (H) 1.70 - [facility] 6.10 [facility] x10(3)/[facility] LABORATORY Lymphocytes % 8.4 % [facility] LABORATORY Lymphocytes Abs 1.3 0.9 - 3.2 [facility] x10(3)/[facility] LABORATORY Monocytes % 10.2 % [facility] LABORATORY Monocyte Abs 1.6 (H) 0.3 - 0.9 [facility] x10(3)/[facility] LABORATORY Eosinophils % 4.2 % [facility] LABORATORY Eosinophils Abs 0.7 (H) 0.0 - 0.4 [facility] x10(3)/[facility] LABORATORY Basophils % 0.3 % [facility] LABORATORY Basophils Abs 0.0 0.0 - 0.1 [facility] x10(3)/[facility] LABORATORY Immature Gran % 0.90 % [facility] LABORATORY Comment: Immature granulocytes(IG's)percentage an d absolute count will include metamyelocytes, myelocytes, and promyelo cytes. Blood smears from CBCs yielding IG's will be scanned manually for concor dance. If this scan disagrees with the automated IG or if promyelocytes are not ed, a manual differential will be performed. Blanca Gran Abs 0.14 (H) 0.00 - 0.04 x10(3)/[facility] LABORATORY Specimen Anatomical Collection Method Collection Time Receive d Time (Source) Location / / Volume Laterality Blood 10/06/2021 3:15 AM 2 3:19 EDT AM EDT Resulting Agency Comment Spec In Lab Fili Woodward MD HEMATOLOGY ORDERABLES Performing Organization Address City/State/[place] [address] (ABNORMAL) Hemogram (10/06/2021 3:15 AM EDT) Analysis Performed At [facility] logist Time Signature WBC 15.5 (H) 4.0 - 9.5 [place] [id number](3)/[facility] LABORATORY RBC 3.44 (L) 4.00 - [place] 5.21 [facility] x10(6)/[facility] LABORATORY Hemoglobin 9.3 (L) 11.7 - [facility] 15.[facility] g/dL [facility] LABORATORY Hematocrit 27.3 (L) 35.7 - [facility] 45.8 % [facility] LABORATORY MCV 79.4 (L) 82.6 - [facility] LABORATORY MCH 27.0 (L) 27.1 - [place] 32.0 pg [facility] LABORATORY MCHC 34.1 31.7 - [facility] g/dL [facility] LABORATORY Platelets 210 145 - 357 [facility] x10(3)/[facility] LABORATORY RDWSD 51.3 (H) 37.0 - [facility] 46[facility]0 [facility] LABORATORY RDWCV 17.7 (H) 11.5 - [facility] 14.1 % [facility] LABORATORY MPV 10.6 7.6 - 12.9 [facility] nRBC % Auto 0.0 % [facility] LABORATORY nRBC Abs Auto 0.000 0.000 - [facility] 0.000 [facility] x10(3)/[facility] LABORATORY Specimen Anatomical Collection Method Collection Time Receive d Time (Source) Location / / Volume Laterality Blood 10/06/2021 3:15 AM 3:19 EDT AM EDT Resulting Agency Comment Spec In Lab Fili Woodward MD HEMATOLOGY ORDERABLES Performing Organization Address City/State/[place] [address] (ABNORMAL) Basic Metabolic Panel (non-fasting) (10/06/2021 3:15 AM EDT) P athologist Signature Glucose Lvl 91 65 - 199 [facility] mg/dL [facility] LABORATORY Comment: Diabetes: >=200 mg/dL plus symp toms BUN 42 (H) 8 - 18 mg/dL [facility] LABORATORY Creatinine 2.76 (H) 0.70 - 1.20 mg/dL [facility] LABORATORY Sodium 134 (L) 135 - 145 mmol/L [facility] LABORATORY Potassium 3.7 3.5 - 5.0 mmol/L [facility] LABORATORY Comment: Please note: ??Patients with WBC >100,00 0 may have falsely elevated Potassium levels. ??For accurate Potassium quantif ication in these patients send serum separator tube (gold top) for subsequent determinations. ??Contact the Clinical Chemistry Laboratory if there are any qu estions. Chloride 97 (L) 98 - 107 mmol/L [facility] LABORATORY CO2 23 22 - 31 mmol/L [facility] LABORATORY Anion Gap 14 5 - 15 mmol/L [facility] LABORATORY Calcium 8.1 (L) 8.5 - 10.5 mg/dL [facility] LABORATORY Estimated GFR 16 (L) >=60 mL/min/1.73 m?? [facility] LABORATORY Comment: This patient? s estimated glomerular [...] Organization Address City/State/[place] [address] (ABNORMAL) Differential, Automated (10/05/2021 1:00 AM EDT) [facility] gist Method Time Signature Neutrophils % 80.7 % [facility] LABORATORY Neutr Abs (ANC) 18.09 (H) 1.70 - [facility] 6.10 [facility] x10(3)/[facility] LABORATORY Lymphocytes % 5.9 % [facility] LABORATORY Lymphocytes Abs 1.3 0.9 - 3.2 [facility] x10(3)/[facility] LABORATORY Monocytes % 9.7 % [facility] LABORATORY Monocyte Abs 2.2 (H) 0.3 - 0.9 [facility] x10(3)/[facility] LABORATORY Eosinophils % 2.2 % [facility] LABORATORY Eosinophils Abs 0.5 (H) 0.0 - 0.4 [facility] x10(3)/[facility] LABORATORY Basophils % 0.2 % [facility] LABORATORY Basophils Abs 0.0 0.0 - 0.1 [facility] x10(3)/[facility] LABORATORY Immature Gran % 1.30 % [facility] LABORATORY Comment: Immature granulocytes(IG's)percentage an d absolute count will include metamyelocytes, myelocytes, and promyelo cytes. Blood smears from CBCs yielding IG's will be scanned manually for concor dance. If this scan disagrees with the automated IG or if promyelocytes are not ed, a manual differential will be performed. Blanca Gran Abs 0.30 (H) 0.00 - 0.04 x10(3)/[facility] LABORATORY Specimen Anatomical Collection Method Collection Time Receive d Time (Source) Location / / Volume Laterality Blood 10/05/2021 1:00 AM 2 1:12 EDT AM EDT Resulting Agency Comment Spec In Lab Fili Woodward MD HEMATOLOGY ORDERABLES Performing Organization Address City/State/[place] [address] (ABNORMAL) Hemogram (10/05/2021 1:00 AM EDT) Analysis Performed At Patho logist Time Signature WBC 22.4 (H) 4.0 - 9.5 [facility] x10(3)/[facility] LABORATORY RBC 3.17 (L) 4.00 - [facility] 5.21 [facility] x10(6)/[facility] LABORATORY Hemoglobin 8.4 (L) 11.7 - [place] 15.5 g/dL [facility] LABORATORY Hematocrit 25.3 (L) 35.7 - [facility] 45.8 % [facility] LABORATORY MCV 79.8 (L) 82.6 - [facility] 94.4 [facility] LABORATORY MCH 26.5 (L) 27.1 - [place] 32.0 pg [facility] LABORATORY MCHC 33.2 31.7 - [facility] 35.0 g/dL [facility] LABORATORY Platelets 154 145 - 357 [facility] x10(3)/[facility] LABORATORY RDWSD 51.0 (H) 37.0 - [facility] 46.0 [facility] LABORATORY RDWCV 17.4 (H) 11.5 - [facility] 14.1 % [facility] LABORATORY MPV 11.2 7.6 - 12.9 [facility] LABORATORY nRBC % Auto 0.0 % [facility] LABORATORY nRBC Abs Auto 0.000 0.000 - [facility] x10(3)/[facility] LABORATORY Specimen Anatomical Collection Method Collection Time Receive d Time (Source) Location / / Volume Laterality Blood 10/05/2021 1:00 AM 2 1:12 EDT AM EDT Resulting Agency Comment Spec In Lab Fili Woodward MD HEMATOLOGY ORDERABLES Performing Organization Address City/State/[place] [address] (ABNORMAL) Basic Metabolic Panel (non-fasting) (10/05/2021 1:00 AM EDT) P athologist Signature Glucose Lvl 108 65 - 199 [facility] mg/dL [facility] LABORATORY Comment: Diabetes: >=200 mg/dL plus symp toms BUN 39 (H) 8 - 18 mg/dL [facility] LABORATORY Creatinine 2.54 (H) 0.70 - 1.20 mg/dL [facility] LABORATORY Sodium 130 (L) 135 - 145 mmol/L [facility] LABORATORY Potassium 4.1 3.5 - 5.0 mmol/L [facility] LABORATORY Comment: Please note: ??Patients with WBC >100,00 0 may have falsely elevated Potassium levels. ??For accurate Potassium quantif ication in these patients send serum separator tube (gold top) for subsequent determinations. ??Contact the Clinical Chemistry Laboratory if there are any qu estions. Chloride 95 (L) 98 - 107 mmol/L [facility] LABORATORY CO2 25 22 - 31 mmol/L [facility] LABORATORY Anion Gap 10 5 - 15 mmol/L [facility] LABORATORY Calcium 7.8 (L) 8.5 - 10.5 mg/dL [facility] LABORATORY Estimated GFR 18 (L) >=60 mL/min/1.73 m?? [facility] LABORATORY Comment: This patient? s estimated glomerular [...] Organization Address City/State/[place] [address] Urinalysis Microscopic Exam (10/04/2021 6:10 PM EDT) P athologist Signature RBC UA 2 0 - 4 /HPF [facility] LABORATORY WBC UA 5 0 - 5 /HPF [facility] LABORATORY Squam Epith UA 2 <=4 /HPF [facility] LABORATORY Hyaline Cast 2 0 - 2 /LPF [facility] LABORATORY Specimen Anatomical Collection Method Collection Time Receive d Time (Source) Location / / Volume Laterality Clean Catch 10/04/2021 6:10 PM 2 7:24 Urine EDT PM EDT Resulting Agency Comment Spec In Lab Arabella Walden MD URINE ORDERABLES Performing Organization Address City/State/[place] [address] (ABNORMAL) Urinalysis with reflex Culture (10/04/2021 6:10 PM EDT) [facility] Method Time Signature Glucose UA Negative Negative [facility] mg/dL [facility] LABORATORY Protein UA 100 (A) Negative [facility] mg/dL [facility] LABORATORY Bilirubin UA Negative Negative [facility] mg/dL [facility] LABORATORY Comment: Clinical correlation required for positi ve Urine Bilirubin results as false positive may occur with some drugs and d rug related products. If a false positive is suspected a serum total bili blandon should be considered if clinically indicated. Urobilinogen UA Normal Normal mg/dL [facility] LABORATORY pH UA 7.0 5.0 - 8.0 [facility] LABORATORY Blood UA Trace (A) Negative mg/dL [facility] LABORATORY Ketones UA Negative Negative mg/dL [facility] LABORATORY Nitrite UA Negative Negative [facility] LABORATORY Leukocytes UA Trace (A) Negative [facility] LABORATORY Appearance UA Clear Clear [facility] LABORATORY Spec [place] UA 1.014 1.005 - 1.030 [facility] LABORATORY Color UA Yellow Yellow [facility] LABORATORY Culture Reflexed No [facility] LABORATORY Specimen Anatomical Collection Method Collection Time Receive d Time (Source) Location / / Volume Laterality Clean Catch 10/04/2021 6:10 PM 2 7:24 Urine EDT PM EDT Resulting Agency Comment Spec In Lab Greyson Silverman MD URINE ORDERABLES Performing Organization Address City/State/ZIP Code Phon e [place] [address] Chest Abdomen Pelvis wo Contrast (10/04/2021 7:47 AM EDT) Anatomical Region Laterality Modality Abdomen, Pelvis Computed Tomography Specimen (Source) Anatomical Collection Method Collection Time Re ceived Time Location / / Volume Laterality 10/04/2021 8:04 AM EDT Impressions 10/04/2021 8:13 AM EDT 1. 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 2. ??Small amount of nondependent air wi thin the [place]. Thank you for letting us participate in the care of this patient. ??If you are a health care provider and have any questi ons regarding this report, please contact the number below. ??For patients who have questions please contact the health care management associate that requested your imaging first. ? Narrative [...] stent. Nondependent air is present in the [place], which measure s 6.2 cm compared [...] stent. Nondependent air is present in the [place], which measure s 6.2 cm compared [...] amount of nondependent air with in the [place] sac. Thank you for letting us participate in the care of this patient. If you are a health care provider and have any questi ons regarding this report, please contact the number below. For patients w ho have questions please contact the health care management associate that requested your imaging first. Greyson Silverman MD IMG CT ORDERABLES Scan, Peripheral Blood (10/04/2021 1:20 AM EDT) [facility] gist Method Time Signature Plat Estimate Normal [facility] LABORATORY RBC Morphology Abnormal [facility] LABORATORY Ovalocytes 1-5 /HPF [facility] LABORATORY Vacuolated Neut Present [facility] LABORATORY Specimen Anatomical Collection Method Collection Time Receive d Time (Source) Location / / Volume Laterality Blood 10/04/2021 1:20 AM 2 1:30 EDT AM EDT Resulting Agency Comment Spec In Lab Fili Woodward MD HEMATOLOGY ORDERABLES Performing Organization Address City/State/[place] [address] (ABNORMAL) Differential, Automated (10/04/2021 1:20 AM EDT) [facility] Method Time Signature Neutrophils % 82.3 % [facility] LABORATORY Neutr Abs (ANC) 22.06 (H) 1.70 - [facility] 6.10 [facility] x10(3)/[facility] LABORATORY Lymphocytes % 4.5 % [facility] LABORATORY Lymphocytes Abs 1.2 0.9 - 3.2 [facility] x10(3)/[facility] LABORATORY Monocytes % 10.1 % [facility] LABORATORY Monocyte Abs 2.7 (H) 0.3 - 0.9 [facility] x10(3)/[facility] LABORATORY Eosinophils % 1.0 % [facility] LABORATORY Eosinophils Abs 0.3 0.0 - 0.4 [facility] x10(3)/[facility] LABORATORY Basophils % 0.3 % [facility] LABORATORY Basophils Abs 0.1 0.0 - 0.1 [facility] x10(3)/[facility] LABORATORY Immature Gran % 1.80 % [facility] LABORATORY Comment: Immature granulocytes(IG's)percentage an d absolute count will include metamyelocytes, myelocytes, and promyelo cytes. Blood smears from CBCs yielding IG's will be scanned manually for concor dance. If this scan disagrees with the automated IG or if promyelocytes are not ed, a manual differential will be performed. Blanca Gran Abs 0.49 (H) 0.00 - 0.04 x10(3)/[facility] LABORATORY Specimen Anatomical Collection Method Collection Time Receive d Time (Source) Location / / Volume Laterality Blood 10/04/2021 1:20 AM 2 1:30 EDT AM EDT Resulting Agency Comment Spec In Lab Fili Woodward MD HEMATOLOGY ORDERABLES Performing Organization Address City/State/[place] [address] (ABNORMAL) Hemogram (10/04/2021 1:20 AM EDT) Analysis Performed At Patho logist Time Signature WBC 26.8 (H) 4.0 - 9.5 [facility](3[facility] LABORATORY RBC 3.90 (L) 4.00 - [place] 5.21 [facility] x10(6)/[facility] LABORATORY Hemoglobin 10.2 (L) 11.7 - [facility] 15.5 g/dL [facility] LABORATORY Hematocrit 31.6 (L) 35.7 - [facility] 45.8 % [facility] LABORATORY MCV 81.0 (L) 82.6 - [facility] 94.4 [facility] LABORATORY MCH 26.2 (L) 27.1 - [place] 32.0 pg [facility] LABORATORY MCHC 32.3 31.7 - [place] 35.0 g/dL [facility] LABORATORY Platelets 153 145 - 357 [facility] x10(3)/[facility] LABORATORY RDWSD 51.4 (H) 37.0 - [place] 46.0 [facility] LABORATORY RDWCV 17.4 (H) 11.5 - [facility] 14.1 % [facility] LABORATORY MPV 11.3 7.6 - 12.9 [facility] nRBC % Auto 0.0 % [facility] LABORATORY nRBC Abs Auto 0.000 0.000 - [facility] 0.000 [facility] x10(3)/[facility] LABORATORY Specimen Anatomical Collection Method Collection Time Receive d Time (Source) Location / / Volume Laterality Blood 10/04/2021 1:20 AM 1:30 EDT AM EDT Resulting Agency Comment Spec In Lab Fili Woodward MD HEMATOLOGY ORDERABLES Performing Organization Address City/State/ZIP Code Phon e Number [place] [id number] HOSPITAL LABORATORY Drive COVID-19 PCR (10/04/2021 1:20 AM EDT) [facility] Method Time Signature SARS-CoV-2 Not Detected Not Detected [facility] LABORATORY Comment: This result should be [...] diagnosis of COVID-19 is performed using the [employer] S-CoV-2 Assay as authorized by the FDA Emergency Use Authorization (EUA). This EUA assay is intended for In-vitro Diagnostic (IVD) use with respiratory sp ecimens such as nasopharyngeal swabs collected from individuals during the ac [place] phase of infection. This assay is performed based on the instructions for use provided by [employer]. and additional guidance provided by CDC and FDA. Testing is performed in the Clinical Genomics and Advanced Technolog y Laboratory within the Department of Pathology and Laboratory Medicine at [facility], certified under the Clinical Laboratory Improvement Amendments [...] required or requested by public health a uthorities, positive specimens may be sent for additional [...] management guidance information are available at e CDC Coronavirus Disease 2019 (COVID-19) webpage under Information fo r Healthcare Professionals (https://www.cdc.gov/coronavirus/2019-nc ov/hcp/index.html) Additional information about this and ot her EUA tests can be found in provider and patient fact sheets at the following FDA website: https://www.fda.gov/medical-devices/xpbbdsvljgo-pyipzre-0159-eesjc-17-jodtcaamr- vws-rrthibzpixzfxs-yudifsz-devices/zqimg-vpdexjnqlxm-tmvu SARS-Cov-2 RNA Source [employer] [facility] LABORATORY Specimen (Source) Anatomical Collection Method Collection Time Re ceived Time Location / / Volume Laterality Nasopharyngeal Swab 10/04/2021 1:20 10/04 AM EDT 8:46 AM EDT Comment: Symptoms->Surveillance Resulting Agency Comment Spec In Lab Greyson Silverman MD MICROBIOLOGY - GENERAL ORDER AYAD Performing Organization Address City/State/[place] [address] (ABNORMAL) Basic Metabolic Panel (non-fasting) (10/04/2021 1:20 AM EDT) athologist Signature Glucose Lvl 90 65 - 199 [facility] mg/dL [facility] LABORATORY Comment: Diabetes: >=200 mg/dL plus symp toms BUN 34 (H) 8 - 18 mg/dL [facility] [facility] Creatinine 2.47 (H) 0.70 - 1.20 mg/dL [facility] Sodium 131 (L) 135 - 145 mmol/L [facility] Potassium 3.7 3.5 - 5.0 mmol/L [facility] Comment: Please note: ??Patients with WBC >100,00 0 may have falsely elevated Potassium levels. ??For accurate Potassium quantif ication in these patients send serum separator tube (gold top) for subsequent determinations. ??Contact the Clinical Chemistry Laboratory if there are any qu estions. Chloride 95 (L) 98 - 107 mmol/L [facility] CO2 22 22 - 31 mmol/L [facility] Anion Gap 14 5 - 15 mmol/L [facility] Calcium 8.3 (L) 8.5 - 10.5 mg/dL [facility] Estimated GFR 19 (L) >=60 mL/min/1.73 m?? [facility] Comment: This patient? s estimated glomerular [...] Organization Address City/State/ZIP Code Phon e Number [address] Green Tube HOLD (10/03/2021 8:00 PM EDT) P athologist Signature Green Hold Sample in [facility]ORATORY Specimen Anatomical Collection Method Collection Time Receive d Time (Source) Location / / Volume Laterality Blood No Charge / 10/03/2021 8:00 PM 2 8:04 Unknown EDT PM EDT Candy Hernandez APRN CHEMISTRY ORDERABLES Performing Organization Address City/State/ZIP Code Phon e Number [address] FLEXIBLE SIGMOIDOSCOPY (10/03/2021 2:25 PM EDT) Component Value Ref Test Analysis Performed At [facility] Method Time Signature FLEXIBLE [facility] PROVATION SIGMOIDOSCOPY Endoscopy Procedure Date: 10/03/2021 2:25 PM ? Patient Name: Pretty Harmon ? Date of : 1950 ? Age: 70 ? Order #: [id number] ? Instrument Name: [id number] ? Procedure: ? Flexible Sigmoidoscopy Indications: ? Suspected acute ischemic colitis Providers: ? Silver Rossi MD, Shahbaz Sneed ? Aurelia, Lianna Harrison, Ibrahim line ? Haroldo Paige Referring : ?Sanjuanita Mejia, ? Complications: ? No immediate complications. Procedure: ? [...] Signature Sodium 131 (L) 135 - 145 [facility] mmol/L [facility] Potassium 3.9 3.5 - 5.0 [facility] mmol/L [facility] Comment: Please note: ??Patients with WBC >100,00 0 may have falsely elevated Potassium levels. ??For accurate Potassium quantif ication in these patients send serum separator tube (gold top) for subsequent determinations. ??Contact the Clinical Chemistry Laboratory if there are any qu estions. Chloride 95 (L) 98 - 107 mmol/L [facility] CO2 24 22 - 31 mmol/L [facility] Anion Gap 12 5 - 15 mmol/L [facility] Specimen Anatomical Collection Method Collection Time Receive d Time (Source) Location / / Volume Laterality Blood 10/03/2021 2:15 PM 2 2:17 EDT PM EDT Resulting Agency Comment Spec In Lab Candy Hernandez APRN CHEMISTRY ORDERABLES Performing Organization Address City/[facility]/[place] [address] XR Abdomen Flat & [...] have questions please contact the health care management associate that requested your imaging first. ? Narrative [...] have questions please contact the health care management associate that requested your imaging first. Candy Hernandez APRN IMG DX ORDERABLES (ABNORMAL) Differential, Automated (10/03/2021 9:05 AM EDT) [facility] Method Time Signature Neutrophils % 82.1 % [facility] Neutr Abs (ANC) 19.89 (H) 1.70 - [facility] 6.10 [facility] x10(3)/[facility] LABORATORY Lymphocytes % 4.3 % [facility] Lymphocytes Abs 1.0 0.9 - 3.2 [facility] x10(3)/[facility] LABORATORY Monocytes % 11.1 % [facility] Monocyte Abs 2.7 (H) 0.3 - 0.9 [facility] x10(3)/[facility] LABORATORY Eosinophils % 1.0 % [facility] Eosinophils Abs 0.2 0.0 - 0.4 [facility] x10(3)/[facility] LABORATORY Basophils % 0.2 % [facility] Basophils Abs 0.1 0.0 - 0.1 [facility] x10(3)/[facility] LABORATORY Immature Gran % 1.30 % [facility] Comment: Immature granulocytes(IG's)percentage an d absolute count will include metamyelocytes, myelocytes, and promyelo cytes. Blood smears from CBCs yielding IG's will be scanned manually for concor dance. If this scan disagrees with the automated IG or if promyelocytes are not ed, a manual differential will be performed. Blanca Gran Abs 0.32 (H) 0.00 - 0.04 x10(3)/[facility] LABORATORY Specimen Anatomical Collection Method Collection Time Receive d Time (Source) Location / / Volume Laterality Blood 10/03/2021 9:05 AM 9:18 EDT AM EDT Resulting Agency Comment Spec In Lab Candy E Caille INLAYER SILVER HEMATOLOGY ORDERABLES Performing Organization Address City/State/[place] [address] (ABNORMAL) Hemogram (10/03/2021 9:05 AM EDT) Analysis Performed At Patho logist Time Signature WBC 24.2 (H) 4.0 - 9.5 [facility] LABORATORY RBC 4.38 4.00 - [place] [facility] 5.21 [facility] x10(6)/[facility] LABORATORY Hemoglobin 11.7 11.7 - [facility] 15.5 g/dL [facility] Hematocrit 35.3 (L) 35.7 - [facility] 45.8 % [facility] MCV 80.6 (L) 82.6 - [facility] 94.4 [facility] LABORATORY MCH 26.7 (L) 27.1 - [facility] 32.0 pg [facility] MCHC 33.1 31.7 - [facility] 35.0 g/dL [facility] Platelets 142 (L) 145 - 357 [facility] LABORATORY RDWSD 50.4 (H) 37.0 - [facility] 46.0 [facility] LABORATORY RDWCV 17.2 (H) 11.5 - [facility] 14.1 % [facility] LABORATORY MPV 11.3 7.6 - 12.9 [facility] LABORATORY nRBC % Auto 0.0 % [facility] nRBC Abs Auto 0.000 0.000 - [facility] 0.000 [facility] x10(3)/[facility] LABORATORY Specimen Anatomical Collection Method Collection Time Receive d Time (Source) Location / / Volume Laterality Blood 10/03/2021 9:05 AM 9:18 EDT AM EDT Resulting Agency Comment Spec In Lab Candy Hernandez APRN HEMATOLOGY ORDERABLES Performing Organization Address City/State/[place] [address] (ABNORMAL) Basic Metabolic Panel (non-fasting) (10/03/2021 9:05 AM EDT) athologist Signature Glucose Lvl 110 65 - 199 [facility] mg/dL [facility] Comment: Diabetes: >=200 mg/dL plus symp toms BUN 33 (H) 8 - 18 mg/dL [facility] Creatinine 2.41 (H) 0.70 - 1.20 mg/dL [facility] Sodium 128 (L) 135 - 145 mmol/L [facility] Potassium Not Perf 3.5 - 5.0 [facility] Comment: Unable to quantitate due [...] Chloride 92 (L) 98 - 107 mmol/L [facility] CO2 23 22 - 31 mmol/L [facility] Anion Gap 13 5 - 15 mmol/L [facility] Calcium 8.4 (L) 8.5 - 10.5 mg/dL [facility] Estimated GFR 19 (L) >=60 mL/min/1.73 m?? [facility] Comment: This patient? s estimated glomerular [...] Hernandez APRN CHEMISTRY ORDERABLES Performing Organization Address City/[facility]/ZIP Code Phon e Number [address] Lactate, whole blood, send to lab ([facility]) (10/03/2021 9:05 AM EDT) athologist Signature Lactate WB 1.5 0.5 - 2.2 [place] mmol/L [facility] Specimen Anatomical Collection Method Collection Time Receive d Time (Source) Location / / Volume Laterality Blood 10/03/2021 9:05 AM 2 9:17 EDT AM EDT Resulting Agency Comment Spec In Lab Candy Hernandez APRN CHEMISTRY ORDERABLES Performing Organization Address City/[facility]/ZIP Code Phon e Number [address] (ABNORMAL) Hepatic Function Panel (10/03/2021 1:15 AM EDT) athologist Signature Total Protein 6.6 6.1 - 8.0 [place] g/dL [facility] Albumin 3.9 3.2 - 5.2 [place] g/dL [facility] AST 58 (H) 0 - 30 [place] unit/L [facility] ALT 27 0 - 30 [place] unit/L [facility] Alk Phos 75 35 - 105 [place] unit/L [facility] Total 0.4 0.2 - 1.3 [place] Bilirubin mg/dL [facility] Bili, Direct 0.1 0.0 - 0.3 [place] mg/dL [facility] Specimen Anatomical Collection Method Collection Time Receive d Time (Source) Location / / Volume Laterality Blood Venous Draw / 10/03/2021 1:15 AM 10/04/19 22 1:26 Unknown EDT AM EDT Resulting Agency Comment Spec In Lab Candy Hernandez APRN CHEMISTRY ORDERABLES Performing Organization Address City/State/[place] [address] Scan, Peripheral Blood (10/03/2021 1:15 AM EDT) [facility] [employer] Method Time Signature Plat Estimate Normal [facility] RBC Morphology Abnormal [facility] Microcytes 1-5 /HPF [facility] Hypochromia Slight [facility] Ovalocytes 1-5 /HPF [facility] Hermosa Cells 1-5 /HPF [facility] Specimen Anatomical Collection Method Collection Time Receive d Time (Source) Location / / Volume Laterality Blood 10/03/2021 1:15 AM 1:24 EDT AM EDT Resulting Agency Comment Spec In Lab Stephanie Cevallos MD HEMATOLOGY ORDERABLES Performing Organization Address City/State/ZIP Code Phon e Number [address] (ABNORMAL) Differential, Automated (10/03/2021 1:15 AM EDT) [facility] [employer] Method Time Signature Neutrophils % 82.8 % [facility] Neutr Abs (ANC) 19.29 (H) 1.70 - [facility] 6.10 [facility] x10(3)/[facility] LABORATORY Lymphocytes % 4.5 % [facility] Lymphocytes Abs 1.0 0.9 - 3.2 [facility] x10(3)/[facility] LABORATORY Monocytes % 11.2 % [facility] Monocyte Abs 2.6 (H) 0.3 - 0.9 [facility] x10(3)/[facility] LABORATORY Eosinophils % 0.6 % [facility] Eosinophils Abs 0.1 0.0 - 0.4 [facility] x10(3)/[facility] LABORATORY Basophils % 0.3 % [facility] Basophils Abs 0.1 0.0 - 0.1 [facility] x10(3)/[facility] LABORATORY Immature Gran % 0.60 % [facility] Comment: Immature granulocytes(IG's)percentage an d absolute count will include metamyelocytes, myelocytes, and promyelo cytes. Blood smears from CBCs yielding IG's will be scanned manually for kevyn bowen. If this scan disagrees with the automated IG or if promyelocytes are not ed, a manual differential will be performed. Blanca Gran Abs 0.13 (H) 0.00 - 0.04 x10(3)/[facility] LABORATORY Specimen Anatomical Collection Method Collection Time Receive d Time (Source) Location / / Volume Laterality Blood 10/03/2021 1:15 AM 2 1:24 EDT AM EDT Resulting Agency Comment Spec In Lab Stephanie Cevallos MD HEMATOLOGY ORDERABLES Performing Organization Address City/State/[place] [address] (ABNORMAL) Hemogram (10/03/2021 1:15 AM EDT) Analysis Performed At Patho logist Time Signature WBC 23.3 (H) 4.0 - 9.5 [facility] LABORATORY RBC 4.22 4.00 - [facility] 5.21 [facility] x10(6)/[facility] LABORATORY Hemoglobin 11.2 (L) 11.7 - [facility] 15.5 g/dL [facility] Hematocrit 33.9 (L) 35.7 - [facility] 45.8 % [facility] MCV 80.3 (L) 82.6 - [facility] 94.4 [facility] LABORATORY MCH 26.5 (L) 27.1 - [facility] 32.0 pg [facility]ORY MCHC 33.0 31.7 - [facility] 35.0 g/dL [facility] Platelets 159 145 - 357 [facility] x10(3)/[facility] LABORATORY RDWSD 50.6 (H) 37.0 - [facility] 46.0 [facility] LABORATORY RDWCV 17.3 (H) 11.5 - [facility] 14.1 % [facility] LABORATORY MPV 10.4 7.6 - 12.9 [facility] LABORATORY nRBC % Auto 0.0 % [facility] nRBC Abs Auto 0.000 0.000 - [facility] 0.000 [facility] x10(3)/[facility] LABORATORY Specimen Anatomical Collection Method Collection Time Receive d Time (Source) Location / / Volume Laterality Blood 10/03/2021 1:15 AM 2 1:24 EDT AM EDT Resulting Agency Comment Spec In Lab Stephanie Cevallos MD HEMATOLOGY ORDERABLES Performing Organization Address City/[facility]/ZIP Code Phon e Number [address] Phosphorus (10/03/2021 1:15 AM EDT) athologist Signature Phosphorus 3.6 2.5 - 4.5 [facility] mg/dL [facility]OR[facility]ORY Specimen Anatomical Collection Method Collection Time Receive d Time (Source) Location / / Volume Laterality Blood 10/03/2021 1:15 AM 2 1:24 EDT AM EDT Resulting Agency Comment Spec In Lab Greyson Silverman MD CHEMISTRY ORDERABLES Performing Organization Address City/[facility]/ZIP Code Phon e Number [address] (ABNORMAL) Magnesium (10/03/2021 1:15 AM EDT) athologist Signature Magnesium 1.23 (H) 0.69 - 1.07 [facility] mmol/L [facility] Comment: result rechecked-sf Specimen Anatomical Collection Method Collection Time Receive d Time (Source) Location / / Volume Laterality Blood 10/03/2021 1:15 AM 2 1:24 EDT AM EDT Resulting Agency Comment Spec In Lab Greyson Silverman MD CHEMISTRY ORDERABLES Performing Organization Address City/[facility]/ZIP Code Phon e Number [address] (ABNORMAL) Basic Metabolic Panel (non-fasting) (10/03/2021 1:15 AM EDT) athologist Signature Glucose Lvl 124 65 - 199 [facility] mg/dL [facility] Comment: Diabetes: >=200 mg/dL plus symp toms BUN 31 (H) 8 - 18 mg/dL [facility] Creatinine 2.37 (H) 0.70 - 1.20 mg/dL [facility] Sodium 130 (L) 135 - 145 mmol/L [facility] Potassium 4.0 3.5 - 5.0 mmol/L [facility] Comment: Please note: ??Patients with WBC >100,00 0 may have falsely elevated Potassium levels. ??For accurate Potassium quantif ication in these patients send serum separator tube (gold top) for subsequent determinations. ??Contact the Clinical Chemistry Laboratory if there are any qu estions. Chloride 92 (L) 98 - 107 mmol/L [facility] Comment: result rechecked-sf CO2 25 22 - 31 mmol/L [facility] Anion Gap 13 5 - 15 mmol/L [facility] Calcium 8.2 (L) 8.5 - 10.5 mg/dL [facility] Estimated GFR 20 (L) >=60 mL/min/1.73 m?? [facility] Comment: This patient? s estimated glomerular [...] Organization Address City/State/[place] [address] (ABNORMAL) Differential, Automated (10/02/2021 12:30 AM EDT) Patholo gist Method Time Signature Neutrophils % 87.3 % [facility] Neutr Abs (ANC) 11.58 (H) 1.70 - [facility] 6.10 [facility] x10(3)/[facility] LABORATORY Lymphocytes % 4.6 % [facility] Lymphocytes Abs 0.6 (L) 0.9 - 3.2 [facility] x10(3)/[facility] LABORATORY Monocytes % 7.4 % [facility] Monocyte Abs 1.0 (H) 0.3 - 0.9 [facility] x10(3)/[facility] LABORATORY Eosinophils % 0.0 % [facility] Eosinophils Abs 0.0 0.0 - 0.4 [facility] x10(3)/[facility] LABORATORY Basophils % 0.2 % [facility] Basophils Abs 0.0 0.0 - 0.1 [facility] x10(3)/[facility] LABORATORY Immature Gran % 0.50 % [facility] Comment: Immature granulocytes(IG's)percentage an d absolute count will include metamyelocytes, myelocytes, and promyelo cytes. Blood smears from CBCs yielding IG's will be scanned manually for concor dance. If this scan disagrees with the automated IG or if promyelocytes are not ed, a manual differential will be performed. Blanca Gran Abs 0.06 (H) 0.00 - 0.04 x10(3)/[facility] LABORATORY Specimen Anatomical Collection Method Collection Time Receive d Time (Source) Location / / Volume Laterality Blood 10/02/2021 12:30 10/02/2021 AM EDT 12:37 AM EDT Resulting Agency Comment Spec In Lab Greyson Chase APRN HEMATOLOGY ORDERABLES Performing Organization Address City/State/[place] [address] (ABNORMAL) Hemogram (10/02/2021 12:30 AM EDT) Analysis Performed At Patho logist Time Signature WBC 13.2 (H) 4.0 - 9.5 [facility] x10(3)/[facility] LABORATORY RBC 3.98 (L) 4.00 - [place] [facility] 5.21 [facility] x10(6)/[facility] LABORATORY Hemoglobin 10.6 (L) 11.7 - [facility] 15.[facility] g/dL [facility] Hematocrit 31.8 (L) 35.7 - [facility] 45.8 % [facility]ATORY MCV 79.9 (L) 82.6 - [facility]4 [facility] LABORATORY MCH 26.6 (L) 27.1 - [facility] 32.0 pg [facility]ORATORY MCHC 33.3 31.7 - [facility] g/dL [facility] Platelets 180 145 - 357 [facility] x10(3)/[facility] LABORATORY RDWSD 50.4 (H) 37.0 - [facility]0 [facility] LABORATORY RDWCV 17.2 (H) 11.5 - [facility] 14.1 % [facility] LABORATORY MPV 10.2 7.6 - 12.9 [facility] LABORATORY nRBC % Auto 0.0 % [facility] nRBC Abs Auto 0.000 0.000 - [facility] 0.000 [facility] x10(3)/[facility] LABORATORY Specimen Anatomical Collection Method Collection Time Receive d Time (Source) Location / / Volume Laterality Blood 10/02/2021 12:30 10/02/2021 AM EDT 12:37 AM EDT Resulting Agency Comment Spec In Lab Greyson Chase APRN HEMATOLOGY ORDERABLES Performing Organization Address City/State/[place] [address] (ABNORMAL) Basic Metabolic Panel (non-fasting) (10/02/2021 12:30 AM EDT) athologist Signature Glucose Lvl 149 65 - 199 [facility] mg/dL [facility] Comment: Diabetes: >=200 mg/dL plus symp toms BUN 34 (H) 8 - 18 mg/dL [facility] Creatinine 2.14 (H) 0.70 - 1.20 mg/dL [facility] Sodium 136 135 - 145 mmol/L [facility] Potassium 4.0 3.5 - 5.0 mmol/L [facility] Comment: Please note: ??Patients with WBC >100,00 0 may have falsely elevated Potassium levels. ??For accurate Potassium quantif ication in these patients send serum separator tube (gold top) for subsequent determinations. ??Contact the Clinical Chemistry Laboratory if there are any qu estions. Chloride 102 98 - 107 mmol/L [facility] CO2 20 (L) 22 - 31 mmol/L [facility] Anion Gap 14 5 - 15 mmol/L [facility] Calcium 8.1 (L) 8.5 - 10.5 mg/dL [facility] Comment: result rechecked-SW Estimated GFR 22 (L) >=60 mL/min/1.73 m?? [facility] Comment: This patient? s estimated glomerular [...] Organization Address City/State/[place] [address] Phosphorus (10/02/2021 12:30 AM EDT) athologist Signature Phosphorus 4.1 2.5 - 4.5 [facility] mg/dL [facility] Specimen Anatomical Collection Method Collection Time Receive d Time (Source) Location / / Volume Laterality Blood 10/02/2021 12:30 10/02/2021 AM EDT 12:37 AM EDT Resulting Agency Comment Spec In Lab Greyson Chase INLAYER SILVER CHEMISTRY ORDERABLES Performing Organization Address City/State/ZIP Code Phon e Number [address] Magnesium (10/02/2021 12:30 AM EDT) P athologist Signature Magnesium 0.77 0.69 - 1.07 [facility]/L [facility] Specimen Anatomical Collection Method Collection Time Receive d Time (Source) Location / / Volume Laterality Blood 10/02/2021 12:30 10/02/2021 AM EDT 12:37 AM EDT Resulting Agency Comment Spec In Lab Greyson Chase INLAYER SILVER CHEMISTRY ORDERABLES Performing Organization Address City/[facility]/ZIP Code Phon e Number [address] (ABNORMAL) Differential, Automated (10/01/2021 5:20 PM EDT) Patholo gist Method Time Signature Neutrophils % 90.8 % [facility] Neutr Abs (ANC) 11.10 (H) 1.70 - [facility] 6.10 [facility] x10(3)/[facility] LABORATORY Lymphocytes % 3.8 % [facility] Lymphocytes Abs 0.5 (L) 0.9 - 3.2 [facility] x10(3)/[facility] LABORATORY Monocytes % 4.7 % [facility] Monocyte Abs 0.6 0.3 - 0.9 [facility] x10(3)/[facility] LABORATORY Eosinophils % 0.2 % [facility] Eosinophils Abs 0.0 0.0 - 0.4 [facility] x10(3)/[facility] LABORATORY Basophils % 0.2 % [facility] Basophils Abs 0.0 0.0 - 0.1 [facility] x10(3)/[facility] LABORATORY Immature Gran % 0.30 % [facility] LABORATORY Comment: Immature granulocytes(IG's)percentage an d absolute count will include metamyelocytes, myelocytes, and promyelo cytes. Blood smears from CBCs yielding IG's will be scanned manually for concor dance. If this scan disagrees with the automated IG or if promyelocytes are not ed, a manual differential will be performed. Blanca Gran Abs 0.04 0.00 - 0.04 x10(3)/[facility] LABORATORY Specimen Anatomical Collection Method Collection Time Receive d Time (Source) Location / / Volume Laterality Blood 10/01/2021 5:20 PM 5:25 EDT PM EDT Resulting Agency Comment Spec In Lab Greyson Chase APRN HEMATOLOGY ORDERABLES Performing Organization Address City/State/[place] [address] (ABNORMAL) Hemogram (10/01/2021 5:20 PM EDT) Analysis Performed At Patho logist Time Signature WBC 12.2 (H) 4.0 - 9.5 [facility] x10(3)/[facility] LABORATORY RBC 4.42 4.00 - [facility] 5.21 [facility] x10(6)/[facility] LABORATORY Hemoglobin 11.7 11.7 - [facility] g/dL [facility] Hematocrit 35.8 35.7 - [facility] 45.8 % [facility] LABORATORY MCV 81.0 (L) 82.6 - [facility] 94.4 [facility] LABORATORY MCH 26.5 (L) 27.1 - [facility] 32.0 pg [facility] LABORATORY MCHC 32.7 31.7 - [facility] g/dL [facility] LABORATORY Platelets 212 145 - 357 [facility] x10(3)/[facility] LABORATORY RDWSD 50.4 (H) 37.0 - [facility] 46[facility]0 [facility] RDWCV 17.3 (H) 11.5 - [facility] 14.1 % [facility] LABORATORY MPV 10.6 7.6 - 12.9 [facility] nRBC % Auto 0.0 % [facility] LABORATORY nRBC Abs Auto 0.000 0.000 - [facility] 0.000 [facility] x10(3)/[facility] LABORATORY Specimen Anatomical Collection Method Collection Time Receive d Time (Source) Location / / Volume Laterality Blood 10/01/2021 5:20 PM 2 5:25 EDT PM EDT Resulting Agency Comment Spec In Lab Greyson Chase APRN HEMATOLOGY ORDERABLES Performing Organization Address City/[facility] Phon e Number [address] T4, free (10/01/2021 5:20 PM EDT) P athologist Signature Free T4 1.42 0.93 - 1.70 [facility] ng/dL [facility] LABORATORY Comment: Reference Interval (ng/dL): Females: ??First Trimester: 0.97-1.68 ??Second Trimester: 0.77-1.51 ??Third Trimester: 0.77-1.49 Specimen Anatomical Collection Method Collection Time Receive d Time (Source) Location / / Volume Laterality Blood 10/01/2021 5:20 PM 2 5:25 EDT PM EDT Resulting Agency Comment Spec In Lab Greyson Chase APRN CHEMISTRY ORDERABLES Performing Organization Address City/[facility] Phon e Number [address] (ABNORMAL) Differential, Automated (10/01/2021 1:10 PM EDT) Patholo gist Method Time Signature Neutrophils % 81.7 % [facility] LABORATORY Neutr Abs (ANC) 8.20 (H) 1.70 - [facility] 6.10 [facility] x10(3)/[facility] LABORATORY Lymphocytes % 7.8 % [facility] LABORATORY Lymphocytes Abs 0.8 (L) 0.9 - 3.2 [facility] x10(3)/[facility] LABORATORY Monocytes % 7.2 % [facility] LABORATORY Monocyte Abs 0.7 0.3 - 0.9 [facility] x10(3)/[facility] LABORATORY Eosinophils % 2.0 % [facility] LABORATORY Eosinophils Abs 0.2 0.0 - 0.4 [facility] x10(3)/[facility] LABORATORY Basophils % 0.3 % [facility] LABORATORY Basophils Abs 0.0 0.0 - 0.1 [facility] x10(3)/[facility] LABORATORY Immature Gran % 1.00 % [facility] LABORATORY Comment: Immature granulocytes(IG's)percentage an d absolute count will include metamyelocytes, myelocytes, and promyelo cytes. Blood smears from CBCs yielding IG's will be scanned manually for concor dance. If this scan disagrees with the automated IG or if promyelocytes are not ed, a manual differential will be performed. Blanca Gran Abs 0.10 (H) 0.00 - 0.04 x10(3)/[facility] LABORATORY Specimen Anatomical Collection Method Collection Time Receive d Time (Source) Location / / Volume Laterality Blood 10/01/2021 1:10 PM 2 1:22 EDT PM EDT Resulting Agency Comment Spec In Lab Stephanie Cevallos MD HEMATOLOGY ORDERABLES Performing Organization Address City/State/ZIP Code Phon e Number [place] [id number] HOSPITAL LABORATORY Drive (ABNORMAL) Hemogram (10/01/2021 1:10 PM EDT) Analysis Performed At Patho logist Time Signature WBC 10.0 (H) 4.0 - 9.5 [facility] x10(3)/[facility] LABORATORY RBC 3.91 (L) 4.00 - [facility] 5.21 [facility] x10(6)/[facility] LABORATORY Hemoglobin 10.6 (L) 11.7 - [facility] 15.5 g/dL [facility] LABORATORY Hematocrit 31.5 (L) 35.7 - [facility] 45.8 % [facility] LABORATORY MCV 80.6 (L) 82.6 - [facility] 94.4 fL [facility] LABORATORY MCH 27.1 27.1 - [facility] 32.0 pg [facility] LABORATORY MCHC 33.7 31.7 - [facility] 35.0 g/dL [facility] LABORATORY Platelets 179 145 - 357 [place] x10(3)/[facility] LABORATORY RDWSD 51.4 (H) 37.0 - [place] 46.0 [facility] LABORATORY RDWCV 17.4 (H) 11.5 - [facility] 14.1 % [facility] LABORATORY MPV 10.4 7.6 - 12.9 [facility] LABORATORY nRBC % Auto 0.0 % [facility] LABORATORY nRBC Abs Auto 0.000 0.000 - [place] [facility] 0.000 [facility] x10(3)/[facility] LABORATORY Specimen Anatomical Collection Method Collection Time Receive d Time (Source) Location / / Volume Laterality Blood 10/01/2021 1:10 PM 1:22 EDT PM EDT Resulting Agency Comment Spec In Lab Stephanie Cevallos MD HEMATOLOGY ORDERABLES Performing Organization Address City/State/ZIP Code Phon e Number [address] POCT Glucose (10/01/2021 12:27 PM EDT) P athologist Signature POC Glucose 172 65 - 199 [facility] mg/dL [facility] LABORATORY Comment: Supplemental ranges: <140 mg/dL before meals <180 mg/dL all other times of the day Specimen Anatomical Collection Method Collection Time Receive d Time (Source) Location / / Volume Laterality Blood 10/01/2021 12:27 10/01/2021 PM EDT 12:27 PM EDT Greyson Silverman MD POINT OF CARE TEST ORDERABLE S Performing Organization Address City/State/ZIP Code Phon e Number [address] COVID-19 PCR (10/01/2021 11:35 AM EDT) Patholo gist Method Time Signature SARS-CoV-2 Not Detected Not Detected [place] RNA PCR [facility] LABORATORY Comment: This result should be [...] using the Simplexa COVID-19 Direct Assay by MC10dar davenport as authorized by the FDA issued [...] Department of Pathology and Laboratory Medicine at [facility], certified under the Clinical Laboratory Improvement Amendmen [...] management guidance information are available at e CDC Coronavirus Disease 2019 (COVID-19) webpage under Information fo r Healthcare Professionals (https://www.cdc.gov/coronavirus/2019-nc ov/hcp/index.html). Additional information about this and ot her EUA tests can be found in provider and patient fact sheets at the following FDA website: https://www.fda.gov/medical-devices/jpwaeoricdr-fjpohcc-1400-yusoz-33-tyojacdko- sto-ctotovufhlkign-uojhsqp-devices/cnzqg-tgjkaeldyqu-nclf SARS-CoV-2 Source [employer] Swab [facility] LABORATORY Specimen (Source) Anatomical Collection Method Collection Time Re ceived Time Location / / Volume Laterality Nasopharyngeal Swab 10/01/2021 11:35 06/0 10/2021 AM EDT 12:06 PM EDT Comment: Symptoms->Surveillance Resulting Agency Comment Spec In Lab Greyson Silverman MD MICROBIOLOGY - GENERAL ORDER AYAD Performing Organization Address City/State/[place] [address] (ABNORMAL) BLOOD GAS 2 ARTERIAL (10/01/2021 9:39 AM EDT) Analysis Performed At Patho logist Time Signature pH Art 7.38 7.35 - [facility] 7.45 [facility] LABORATORY pCO2 Art 41 35 - 45 [facility] LABORATORY pO2 Art 276 (H) 85 - 104 [facility] LABORATORY HCO3 Art 23.3 20.0 - [facility] 26.0 [facility] mmol/L [facility] LABORATORY BE Art -1.9 -3.0 - 3.0 [facility] mmol/L [facility] LABORATORY Hgb Blood Gas 10.9 (L) 11.7 - [facility] 15.5 g/dL [facility] LABORATORY O2HB Art 97.9 (H) 94.0 - [facility] 97.0 % [facility] LABORATORY COHB Art 0.4 % [facility] LABORATORY Comment: Nonsmokers: 0.5-1.5% COHB Smokers: Variable, but usually less than 10% Toxic: 20-30% COHB Lethal: Greater than 60% COHB METHB Art 0.2 <=1.5 % [facility] LABORATORY Na Whole Blood 136 135 - 145 mmol/L [facility] LABORATORY K Whole Blood 3.7 3.5 - 5.0 mmol/L [facility] LABORATORY Comment: Please note: Patients with WBC >100,000 may have falsely elevated Potassium levels. Contact the Clinical Chemistry L aboratory if there are any questions. ICa Whole Blood 1.13 (L) 1.15 - 1.33 mmol/L [facility] LABORATORY Comment: Note: ??Total bilirubin higher than 20 m g/dL may lead to falsely low ionized calcium. CL Whole Blood 103 98 - 107 mmol/L [facility] LABORATORY Gluc Whole Bld 124 65 - 199 mg/dL [facility] LABORATORY Comment: Diabetes: >=200 mg/dL plus symp toms. Lactate WB 1.2 0.5 - 2.2 mmol/L [facility] LABORATORY Specimen Anatomical Collection Method Collection Time Receive d Time (Source) Location / / Volume Laterality Blood 10/01/2021 9:39 AM 9:39 EDT AM EDT Greyson Silverman MD CHEMISTRY ORDERABLES Performing Organization Address City/State/[place] [address] IR OR VASC Aniogram Image Storage Only (10/01/2021 8:51 AM EDT) Specimen (Source) Anatomical Location Collection Method / Collectio n Time Received Time / Laterality Volume Narrative DH RAD - 10/01/2021 8:51 AM EDT This exam is auto-finalizing. It's purpo se is for storage only. Greyson Silverman MD IMG FILM LIBRARY ORDERABLES Performing Organization Address City/State/ZIP Code Phon e Number [place] Type and Screen Validity (10/01/2021 7:30 AM EDT) [facility] Method Time Signature T&S only valid [facility] LABORATORY Comment: This Type and Screen result is only valid at the [facility] Specimen Anatomical Collection Method Collection Time Receive d Time (Source) Location / / Volume Laterality Blood 10/01/2021 7:30 AM 7:33 EDT AM EDT Resulting Agency Comment Spec In Lab Greyson Silverman MD BLOOD BANK ORDERABLES Performing Organization Address City/State/[place] [address] ABORH Recheck Status (10/01/2021 7:30 AM EDT) [facility] Method Time Signature ABORH Type Completed [facility] LABORATORY Specimen Anatomical Collection Method Collection Time Receive d Time (Source) Location / / Volume Laterality Blood 10/01/2021 7:30 AM 2 7:33 EDT AM EDT Resulting Agency Comment Spec In Lab Greyson Silverman MD BLOOD BANK ORDERABLES Performing Organization Address City/[facility]/[place] [address] Antibody screen (10/01/2021 7:30 AM EDT) Patholo gist Method Time Signature Ab Screen Negative [facility] LABORATORY Expires at 10/04/2021 [facility] [id number] on: [facility] LABORATORY Specimen Anatomical Collection Method Collection Time Receive d Time (Source) Location / / Volume Laterality Blood 10/01/2021 7:30 AM 2 7:33 EDT AM EDT Resulting Agency Comment Spec In Lab Greyson Silverman MD BLOOD BANK ORDERABLES Performing Organization Address City/[facility]/[place] [address] ABO/Rh Typing (10/01/2021 7:30 AM EDT) P athologist Signature ABORh Type A Pos [facility] LABORATORY Specimen Anatomical Collection Method Collection Time Receive d Time (Source) Location / / Volume Laterality Blood 10/01/2021 7:30 AM 2 7:33 EDT AM EDT Resulting Agency Comment Spec In Lab Greyson Silverman MD BLOOD BANK ORDERABLES Performing Organization Address City/[facility]/[place] [address] Prealbumin (10/01/2021 7:30 AM EDT) P athologist Signature Prealbumin 23 20 - 40 [facility] mg/dL [facility] LABORATORY Comment: Prealbumin levels are generally lower in the pediatric population; adult concentrations are usually attained near puberty. Specimen Anatomical Collection Method Collection Time Receive d Time (Source) Location / / Volume Laterality Blood 10/01/2021 7:30 AM 2 8:03 EDT AM EDT Resulting Agency Comment Spec In Lab Greyson Silverman MD CHEMISTRY ORDERABLES Performing Organization Address City/State/[place] [address] (ABNORMAL) Basic Metabolic Panel (non-fasting) (10/01/2021 7:30 AM EDT) P athologist Signature Glucose Lvl 118 65 - 199 [facility] mg/dL [facility] LABORATORY Comment: Diabetes: >=200 mg/dL plus symp toms BUN 37 (H) 8 - 18 mg/dL [facility] LABORATORY Creatinine 1.99 (H) 0.70 - 1.20 mg/dL [facility] LABORATORY Sodium 137 135 - 145 mmol/L [facility] LABORATORY Potassium 3.6 3.5 - 5.0 mmol/L [facility] LABORATORY Comment: Please note: ??Patients with WBC >100,00 0 may have falsely elevated Potassium levels. ??For accurate Potassium quantif ication in these patients send serum separator tube (gold top) for subsequent determinations. ??Contact the Clinical Chemistry Laboratory if there are any qu estions. Chloride 101 98 - 107 mmol/L [facility] LABORATORY CO2 23 22 - 31 mmol/L [facility] LABORATORY Anion Gap 13 5 - 15 mmol/L [facility] LABORATORY Calcium 9.2 8.5 - 10.5 mg/dL [facility] LABORATORY Estimated GFR 24 (L) >=60 mL/min/1.73 m?? [facility] LABORATORY Comment: This patient? s estimated glomerular [...] Organization Address City/State/[place] [address] (ABNORMAL) Hemogram (10/01/2021 7:30 AM EDT) Analysis Performed At Patho logist Time Signature WBC 6.2 4.0 - 9.5 [facility] x[facility](3[facility] LABORATORY RBC 4.56 4.00 - [facility] 5.21 [facility] x10(6)/[facility] LABORATORY Hemoglobin 12.0 11.7 - [facility] 15.5 g/dL [facility] LABORATORY Hematocrit 37.2 35.7 - [facility] 45.8 % [facility] LABORATORY MCV 81.6 (L) 82.6 - [facility] 94.4 [facility] LABORATORY MCH 26.3 (L) 27.1 - [facility] 32.0 pg [facility] LABORATORY MCHC 32.3 31.7 - [facility] 35.0 g/dL [facility] LABORATORY Platelets 220 145 - 357 [facility] x10(3)/[facility] LABORATORY RDWSD 50.4 (H) 37.0 - [facility] 46.0 [facility] LABORATORY RDWCV 17.2 (H) 11.5 - [facility] 14.1 % [facility] LABORATORY MPV 10.5 7.6 - 12.9 [facility] nRBC % Auto 0.0 % [facility] LABORATORY nRBC Abs Auto 0.000 0.000 - [facility] 0.000 [facility] x10(3)/[facility] LABORATORY Specimen Anatomical Collection Method Collection Time Receive d Time (Source) Location / / Volume Laterality Blood 10/01/2021 7:30 AM 2 8:03 EDT AM EDT Resulting Agency Comment Spec In Lab Greyson Silverman MD HEMATOLOGY ORDERABLES Performing Organization Address City/State/ZIP Code Phon e Number [address] SCAN DOC: IMPLANTABLE DEVICES (10/01/2021 12:00 AM EDT) Narrative This result has an attachment that is no t available. Unknown MEDIA MGR SCAN EXT ORDR/RSLT documented in this encounter Visit Diagnoses Diagnosis Pre-op testing Preoperative examination, unspecified Abdominal aortic aneurysm (AAA) without rupture Uncontrolled hypertension Unspecified essential hypertension Pre-op testing Preoperative examination, unspecified Abdominal aortic aneurysm (AAA) without rupture Abdominal aortic aneurysm (AAA) without rupture documented [...] Given 10/06/2021 4:03 PM EDT 25 mg iodixanoL (Visipaque) (320 Given 10/01/2021 11:24 AM 11.5 mLs 19- Surgical Site mg/mL) injection solution EDT ONCE PRN, Starting on Thu10/01/21 at 1124, Until Thu10/01/21 at 1223, Intra-Operative (Intra-Procedure), Routine isosorbide dinitrate (Isordil) tablet 20 mg Given [...] Oral, EVERY 4 HOURS PRN, Starting on Thu10/05/21 at 0753, Until Thu10/07/21 at 1614, Pain, for pain, give 1st. For p ain 1-5 give 5 mg for pain 6-10 give 10 mg, Routine polyethylene glycoL (Miralax) packet 17 g 17 g, Oral, DAILY PRN, Starting on Thu at 0915, Until Thu10/07/21 at 1614, Constipation, [...] Eliza Casey, LAWRENCE)1743 (Given - Provider: Eliza Casey RN)2305 (Given [...] 5 mg, Oral, DAILY, First dose on Cinthia 10/03 at 0700, Until Discontinued, Routine aspirin EC tablet 81 mg 0807 (Given - Provider: Eliza chiang RN) 0810 (Given - Provider: Eliza Casey RN) 0832 (Given - Provider: Krish Caballero) 81 mg, Oral, DAILY, First dose on 12/16 at 0900, Until Discontinued, Routine atorvastatin (Lipitor) tablet 20 mg 174 (Given - Prov ider: Eliza Casey RN) 160 (Given - Provider: Eliza Casey RN) 20 mg, Oral, EVERY EVENING, First dose o n Thu10/01/21 at 1700, Until Discontinued, Routine bisacodyL (Dulcolax) suppository 10 mg 09 (Hold - Pr ovider: Eliza Casey RN - Reason: See comment) 09 (Not Given - Provider: Eliza chiang RN - Reason: See comment) 0900 (Not Given - Provider: Leah Beavers i, RN - Reason: Patient/family refused) 10 mg, Rectal, DAILY, First dose on Thu10/04/21 at 1015, Until Discontinued, Routine carvediloL (Coreg) tablet 12.5 mg 08 (Given - Provid er: Eliza Casey RN)2018 (Given - Provider: Crow Babb RN) 08 (Given - Provider: Eliza Casey RN)223 (Given - Provider: Sol Mehta RN) 0832 (Given - Provider: Leah Heck RN) 12.5 mg, Oral, 2 TIMES DAILY, First dose on Thu10/02/21 at 1200, Until Discontinued, Routine furosemide (Lasix) tablet 20 mg 08 (Given - Provider : Eliza Casey RN)174 (Given - Provider: Eliza Casey RN) 08 (Given - Provider: Eliza Casey RN)160 (Given - Provider: Eliza Casey RN) 0832 [...] Patient/family refused) 0610 (Given - Provider: Rolo Fulton RN)1400 (Due - Provider: Admin Adt) 5,000 Units, Subcutaneous, EVERY 8 HOURS SCHEDULED, First dose on Thu10/02/21 at 2200, Until Discontinued, Routine hydrALAZINE (Apresoline) tablet 25 mg 0806 (Given - Pr ovider: Eliza Casey RN)1534 (Given - Provider: Eliza Casey RN)2019 (Given - Provider: Crow Babb RN) 0809 [...] Rolo Fulton, LAWRENCE)1025 (Given - Provider: Leah Heck RN) 20 mg, Oral, 3 TIMES DAILY, First dose o n Thu10/01/21 at 2100, Until Discontinued levothyroxine (Synthroid) tablet 50 mcg 0513 (Given - Provider: Crow Babb, LAWRENCE) 0510 (Given - Provider: Crow Babb RN) 0610 (Given - Provider: Rolo Fulton RN) 50 mcg, Oral, EVERY MORNING, First dose (after last reorder) on Thu10/02/21 at 0600, Until Discontinued, Routine polyethylene glycoL (Miralax) packet 17 g 0806 (Given - Provider: Eliza Casey RN) 0808 (Given - Provider: Eliza Casey RN) 0831 (Giv en - Provider: Leah Heck, LAWRENCE) 17 g, Oral, DAILY, First dose on 09/25 at 1015, Until Discontinued, Routine potassium chloride ER (K-Dur/Klor-Con) tablet 40 mEq (COMPLETED) 102 (Given - Provider: Leah Heck RN) 40 mEq, Oral, ONCE, 1 dose, On Thu at 1030, 20 mEq tablet may be dissolved in water for administration, Routine senna-docusate (Pericolace) 8.6-50 mg per tablet 2 tab let 08 (Given - Provider: Eliza Casey, LAWRENCE)2018 (Given - Provider: Crow Babb RN) 08 (Given - Provider: Eliza Casey RN)223 (Given - Provider: Sol Mehta RN) 0832 (Given - Provider: Leah Heck, Krish N) 2 tablet, Oral, 2 TIMES DAILY, First [...] St arting on Thu10/01/21 at 1301, Until 10/07/21 at 1614, Nausea, May repeat times one in 30 minutes if ineffective. If multiple antiemetics are ordered, use on dansetron first, Recovery (Recovery-Hospital Unit) ondansetron (Zofran) tablet 4 mg(Linked Group 1) 4 mg, Oral, EVERY 8 HOURS PRN, Starting on 10/01/21 at 1301, Until 10/07/21 at 1614, Nausea, [...] EVERY 1 MIN PRN, S tarting on 10/01/21 at 1301, Until 10/07/21 at 1614, flush, Flush pertains to all [...] Unit) documented in this encounter Care Teams Soap Drier Tender Relationship Specialty Start Date End Date Sanjuanita Lee MD PCP - General 03/05/13 12/23/[address] [place] [address] documented as of this encounter
--- OUTSIDE RECORDS SUMMARY | 2022-02-22 23:28 | XMS_ITS | Encounter Summary ---
:1950 Author Organization [facility] [place] [address] Care Team Providers Name Role Phone Sanjuanita Lee MD Primary Care Provider Reason for Referral Diagnostic Test (Routine) - Closed Specialty Diagnoses / Procedures Referred By Contact Refer red To Contact Radiology Diagnoses Abdominal aortic aneurysm (AAA) without rupture Isac Moody MD [facility] Interventionl Rad Procedures VS Arteriogram Renal Vascular Surgery [facility] [place] [address] [place] [address] Referral ID Status Reason Start Date Expiration Date Visits V isits Requested Authorized [id number] Closed Specialty 08/01/2021 04/26/2022 1 1 Service Requested Reason for Visit Diagnostic Test (Routine) - Closed Specialty Diagnoses / Procedures Referred By Contact Refer red To Contact Radiology Diagnoses Abdominal aortic aneurysm (AAA) without rupture Isac Moody MD [facility] Interventionl Rad Procedures VS Arteriogram Renal Vascular Surgery [facility] [place] [address] [place] [address] Referral ID Status Reason Start Date Expiration Date Visits V isits Requested Authorized [id number] Closed Specialty 08/01/2021 04/26/2022 1 1 Service Requested Encounter Details Date Type Department Care Team Description 08/01/2021 Hospital Encounter Radiology at [facility] FransiscoIsac Abdominal aortic [facility] MD Tesfaye aneurysm (AAA) Drive [facility] without rupture [place], [place] [facility] [address] VASCULAR SURGERY [phone] [place] [address] Social History Tobacco Use Types Packs/Day Years [...] Sign Reading Time Taken Comments Blood Pressure 109/51 08/01/2021 4:00 PM EDT Pulse 56 08/01/2021 2:10 PM EDT Temperature 36.4 ??C (97.6 ??F) 08/01/2021 2:18 PM EDT Respiratory Rate 18 08/01/2021 4:00 PM EDT Oxygen Saturation 91% 08/01/2021 4:00 PM EDT Inhaled Oxygen Concentration - - Weight 46.3 kg (102 lb 1.2 oz) 08/01/2021 12:03 PM EDT Height - - Body Mass Index 19.93 07/02/2021 12:49 PM EST documented in this encounter Discharge Instructions Discharge Rolo Rubio RN - 08/01/2021 1:16 PM EDT [facility] Interventional Radiology Post Angiography Instructions Procedure: Puncture Site: Date: Physician: 1. At home we advise you to rest quietly in bed or on the couch with your hip straight until the next morning. Until the next morning you may get up only to go to the bathroom. 2. Resume your previous diet. Drink 6-8 ounces of fluid per hour for the next 8 hours. Avoid alcoholic or caffeinated beverages for 24 hours. 3. Avoid strenuous activity for the next 48 hours, particularly in the next 24 hours. Stair climbingshould be kept to a minimum. Do not lift objects heavier than 10-15 pounds for the next 48 hours Avoid straining for bowel movements as you can pop open the clot that has formed on the artery. 4. If you develop bulging under the skin or bleeding at the puncture site, put direct pressure on the puncture site for 15 minutes and call your doctor. If the bleeding persists, reapply pressure, and go to your local Emergency Department. 5. If you notice a sudden change in the feeling (numbness, tingling and/or pain) of your leg on the side of the puncture call your doctor. 6. You may develop a bruise at the puncture site. This should go away within a week to 10 days. If abulge develops after the first three days, call your doctor or the Radiology/Vascular Department here. Report signs of infection (redness, swelling, discharge, soreness, or fever) to your doctor. 7. Leave the bandage on for 24-48 hours. You may shower the following day after the procedure. You should NOT swim or tub bathe for [address] for 24 hours after the procedure. Do not sign any important documents or smoke unattended for 24 hours. You may return to work with the above restrictions on . 9. If you have any questions or concerns, please call Interventional Radiology Department at until 6pm. After 6pm, or on weekends or hoildays, call and ask for the vice president media relations physical education specialist. OR Vascular Department at until 4:45pm. After 4:45pm call and ask for the Vascular resident physical education specialist. 10. If you are a diabetic and take Metformin or Janumet, Do not take it for 2 days after the procedure. XX You have received medication during your procedure to help lesson anxiety and keep you comfortable and which affects judgement and reaction time. We recommend that you do not drive, operate equipment, sign any important documents, or smoke unattended for 24 hours following your procedure. Because of the sedation please be careful on stairs, as you may be unsteady on your feet. You may resume your regular diet as tolerated. IV site -- slight redness, or tenderness is normal, you can use a warm compress. If tenderness and redness increases or foul drainage occurs, please contact your M. D. Revised 02/10/19 documented in this encounter Medications at Time [...] as of this encounter Progress Notes Lexus Marino RN - 07/29/2021 10:17 AM EDT ANGIO NURSING DATABASE Name: PRETTY HARMON Date of : 1950 AGE: 70 y.o. Address: [address] [address] (home) Mobile: Telephone Information: Referring Provider: Isac Moody REASON FOR VISIT: Bilateral Renal Artery Angiogram Order Questions Answers Where will study be performed? [facility] Radiology [120] Laterality Bilateral Access Site? right HYDROTHERAPIST Reason for exam and clinical history: prep for AAA repair; enlarging AAA Exam/Procedure requested: aortic angiogram with CO2 What labs need to be collected during imaging study? creatinine prior Is the patient on anticoagulant / antiplatelet therapy? Aspirin,Other Other meds: per Dr. Moody; continue aspirin *Vascular case sheet scanned in media. No Known Allergies Pertinent PMH: Patient Active Problem List Diagnosis Code ??? Viral hepatitis B acute B16.9 ??? Abdominal aortic aneurysm (AAA) without rupture I71.4 ??? Renal artery stenosis I70.1 ??? Hypertensive urgency I16.0 ??? Severe protein-calorie malnutrition E43 ??? CKD (chronic kidney disease) stage 5, GFR less than 15 ml/min N18.5 ??? Chest pain R07.9 ??? Hypertensive urgency I16.0 ??? Systolic HF (heart failure) I50.20 ??? Uncontrolled hypertension I10 ??? Anemia of chronic renal failure, stage 4 (severe) N18.4, D63.1 ??? Pre-transplant evaluation for CKD (chronic kidney disease) Z01.818 ??? Pulmonary hypertension I27.20 ??? SBO (small bowel obstruction) K56.609 Pertinent PSH: Past Surgical History: Procedure Laterality Date ??? HYSTERECTOMY ? ? PRO CATHETER 1ST ORDER W/WO ART PUNCT/FLUORO/S&I BILATERAL Bilateral 09/01/[address] (FIRST-ORDER), MAIN RENAL ART & ANY ACC, W/S&I; ANDREY (WRVU 6.99) performedby Regan Chen MD at [facility] MAIN OR ??? PRO EXPLORATORY OF ABDOMEN N/A 04/26/2020 @EXPLORATORY LAPAROTOMY, WITH/WITHOUT BIOPSY(S) (WRVU 12.54) performed by Edwin Hwang MD at [facility] MAIN OR ??? PRO UPPER GI ENDOSCOPY, DIAGNOSTIC 01/20/2014 EGD, UPPER GI ENDOSCOPY performed by Corby Cano MD at [facility] ENDOSCOPY ??? PRO UPPER GI ENDOSCOPY, DIAGNOSTIC N/A 07/28/2017 EGD, UPPER GI ENDOSCOPY performed by Snow Liao MD at [facility] ENDOSCOPY ??? PRO VEIN BYPASS GRAFT, AORTOILIOFEMORAL N/A 09/07/2018 @BYPASS GRAFT, AORTOILIAC W\ VEIN CONDUIT (WRVU 41.88) performed by Isac Moody MD at [facility] MAIN OR Date/Procedure Meds Given/Comments 03/22/13 Para: 2L out Fentanyl 125 mcg IV, Albumin 25%X4, sheri well. ? Laboratory Results: Lab Results Component Value Date INR 1.1 04/24/2020 Lab Results Component Value Date CREATININE 2.03 (H) 07/04/2021 Lab Results Component Value Date K 3.2 (L) 06/25/2021 Lab Results Component Value Date PLATELET 337 06/25/2021 Medications: Prior to Admission medications Medication Sig Start Date End Date Taking? Authorizing Provider traZODone (DESYREL) 150 mg Tablet TAKE ONE TABLET BY MOUTH AT BEDTIME NEEDED FOR SLEEP 04/04/21 PROVIDER, HISTORICAL carvediloL (Coreg) 12.5 mg Tablet Take 1 tablet by mouth 2 times daily (with meals). 03/29/20 Lavelle Feliz MD hydrALAZINE (Apresoline) 25 mg Tablet Take 1 tablet by mouth 3 times daily. 03/29/20 Salazar Feliz MD isosorbide dinitrate (ISORDIL) 20 mg Tablet Take 1 tablet by mouth 3 times daily. 03/29/20 Lavelle Feliz MD levothyroxine (Synthroid) 75 mcg Tablet Take 1 tablet by mouth daily. 01/06/20 Lavelle Feliz MD amLODIPine (Norvasc) 5 mg Tablet Take 1 tablet by mouth daily. 12/23/19 Lavelle Feliz MD cimetidine (TAGAMET) 400 mg Tablet Take 400 mg by mouth 2 times daily. PROVIDER, HISTORICAL furosemide (Lasix) 20 mg Tablet Take 20 mg by mouth 2 times daily. Takes at 0800 and 1600 PROVIDER, HISTORICAL gabapentin (NEURONTIN) 100 mg Capsule Take 300 mg by mouth nightly. PROVIDER, HISTORICAL atorvastatin (LIPITOR) 20 mg Tablet Take 1 tablet by mouth every evening. 10/07/18 Eliezer Larsen MD cloNIDine (CATAPRES) 0.1 mg Tablet Take 1 tablet by mouth every 8 hours as needed (Please take 1 tablet, if systolic blood pressure is >200). 10/07/18 Eliezer Larsen MD acetaminophen (TYLENOL) 500 mg Tablet Take 1 tablet by mouth every 6 hours. 09/14/18 Isac Moody MD aspirin 81 mg Tablet, Delayed Release (E.C.) Take 81 mg by mouth daily. PROVIDER, HISTORICAL documented in this encounter H&P Notes Frantz Gibson MD - 08/01/2021 12:34 PM EDT INTERVENTIONAL RADIOLOGY FOCUSED H&P: Procedure: Aortogram The patient's history and physical exam have been reviewed and completed. There has been no intervalchange from that of the pre-operative history and physical exam done within the last 30 days. Physical Exam: Cardiovascular: Regular, Normal Pulmonary: Breath sounds clear to auscultation Vascular: Palpable femoral arteries, groin soft. Palpable DP and PT bilaterally. The planned procedure (and sedation plan if appropriate) , its benefits and risks, and alternatives were discussed with the patient. The patient consented to the procedure. PRE-SEDATION ASSESSMENT: Sedation Plan: moderate (conscious sedation) ASA: 3: Patient with severe systemic disease Mallampati: I: soft palate, fauces, tonsillar pillars and uvula can be seen Confirm NPO status: Yes History of anesthetic complications: No Current medications reviewed: Yes Allergies reviewed: Yes Source Note - Isac Moody MD - 07/02/2021 1:00 PM EST The patient is status post a right renal artery bypass with vein on 09/07/2018. The bypass originates from the right iliac artery. This was performed for flash pulmonary edema and elevated creatinine. Postoperatively the patient did well. Her blood pressure is under better control and she has had no further episodes of flash pulmonary edema. She has an abdominal aortic aneurysm which is enlarged now to 5.6 cm in diameter. The aneurysm is supraceliac. Labs: Creatinine today is 1.89, and has been elevated above 2.3 since 10/02/2018. This is in comparison to Cr 1.59-1.73 immediately after her bypass was performed on 09/07/2018. Findings: ?? Right ?Pressure (mm Hg) ?? BEVERLY ??Waveform ? TBI ?? Brachial Artery ?161 ? Dorsalis Pedis (Ankle) Artery ?151 ? 0.94 ??Triphasic ? Posterior Tibial (Ankle) Artery ??154 ? 0.96 ??Bi-Triphasic ? Great Toe ?93 ?0.58 ? Left ? Pressure (mm Hg) ?? BEVERLY ??Waveform ?? TBI ?? Brachial Artery ?152 ? Dorsalis Pedis (Ankle) Artery ?98 ?0.61 ??Biphasic ? Posterior Tibial (Ankle) Artery ??81 ?0.50 ??Biphasic ? Great Toe ?151 ? 0.94 ? Interpretation: ?? RIGHT: Mild lower extremity arterial occlusive disease. No significant change compared to previous exam. ?? LEFT: Moderate lower extremity arterial occlusive disease. The great toe pressure may be falsely elevated. Deterioration compared to previous exam. ? Previous ABIs with change from previous value: ?? Date ?RIGHT DP ?? RIGHT PT ?? RT GR TOE ??RT Sec TOE ??1.02 ? 0.96 ? 0.48 ? ---- ??1.02( .00) 1.00(+.04) 0.47(-.01) ---- Current ? 0.94(-.08) 0.96(-.04) 0.58(+.11) ---- ?? Date ?LEFT DP ?LEFT PT ?LT GR TOE LT Sec TOE ??0.52 ? 0.58 ? 0.31 ? ---- ??0.67(+.15) 0.73(+.15) 0.40(+.09) ---- Current ? 0.61(-.06) 0.50(-.23) 0.94(+.54) ---- Findings: ?? Syl Renal Aorta ?PSV (cm/s): 38 ?EDV (cm/s): 0 ?RI: 1.00 Renal Artery Distal, Right ?PSV (cm/s): 67 ?EDV (cm/s): 12 ?RAR: 1.8 ?RI: 0.82 Mid Pole Renal Parenchyma, Right ?PSV (cm/s): 27 ?EDV (cm/s): 6 ?RI: 0.76 ?AT (ms): 40 Renal Hilum, Right ?AT (ms): 40 Kidney Length, Right ?Length (cm): 10.2 Renal Vein, Right ?Patent: Patent ? Interpretation: ?? RIGHT: The renal artery bypass was not clearly visualized, cannot exclude stenosis in areas not visualized. However, velocities obtained at what is suspected to be the distal segment of the bypass graft had no evidence of stenosis (66 cm/sec and 70 cm/sec). The [place] distal renal artery is patent with no evidence of hemodynamically significant stenosis. ?? Patent intraparenchymal arteries with normal arterial flow. No identifiable change when compared to the previous exam. ?? Interpretation: ?? The??proximal aorta measurement has increased significantly compared to previous exam (3.0 x 3.2 cm; 10/05/2019). ?? Patent common iliac arteries with elevated velocities consistent with >50% stenosis. No evidence of OTIS aneurysm. ? Pt ACTA today shows Enlarging fusiform abdominal aortic aneurysm. Maximum caliber 5.6 cm. Impression and plan ?? Renal artery duplex today reveals patient iliac to renal artery bypass graft with elevated velocities in the iliac artery inflow. Her AAA continues to increase and is now 5.6 cm. We discussed that there is now increased risk of rupture and we should consider repair. She would now like to consider proceeding with repair. Our plan will be to attempt to obtain a CT arteriogram of her abdominal aorta with preprocedure hydration in order to optimally plan whether this can be done with an endovascular approach versus open surgery. If we cannot get the CT arteriogram we would then proceed with angiography using CO2 in order to outline the anatomy.She would like to proceed as soon as possible. documented in this encounter Procedure Notes Frantz Gibson MD - 08/01/2021 2:28 PM EDT Vascular Surgery Interventional Procedure Note Date of procedure: 08/01/21 Pre-Procedure Diagnosis: Thoraco-abdominal aortic aneurysm. Post-Procedure Diagnosis: Same Procedure: - Rt. femoral arterial access with fluoroscopic and ultrasound guidance - Aortogram - first order selective catheterization of right renal bypass (vein) and angiography. - Mynx closure. Surgeon(s): Bo Gibson MD PGY-6 Dr. Moody. Intra-procedural Medications: Versed dose: 1 mg Fentanyl dose: 50 mcg Local anesthetic: 6 cc 1% lidocaine Heparin: No Units Protamine: No mg Antibiotics: Ancef 2 grams. Fluoro Time: 4.7 min Contrast: 5 mL Sheath Size: 5 Fr Indications for the procedure: 70-year-old female with enlarging thoracoabdominal aortic aneurysm now measuring 5.6 cm. Patient is status post right renal artery bypass with vein on 09/07/2018 secondary to flash pulmonary edema and elevated creatinine. Findings: -Thoracoabdominal aortic aneurysm measuring 4.4 cm in diameter, spanning to just above the iliac bifurcation on CO2 contrast exam, better visualized on recent CT. - Celiac and inferior mesenteric arteries are not observed, presumed occluded. -Patent SMA artery with collateral flow to the splenic and hepatic artery. -Question of moderate to severe stenosis of the proximal left common iliac artery, difficult to visualize due to overlying bowl gas. -Right renal artery bypass from right common iliac artery to right kidney is patent. Procedure in detail: The patient was properly identified in the pre-operative holding area. After discussions of the risks and benefits, operative consent was obtained. The patient was brought to the angiography suite and placed on the angio table. The patient was prepped and draped in the usual sterile fashion. A time-out was performed by the attending surgeon confirming the patient, the intended procedure, the side of intervention and equipment needed. Split doses of fentanyl and versed were administered for conscioussedation by the Interventional Radiology nurse during continuous monitoring of pulse, blood pressureand oxygen saturation. After injection of local anesthetic, percutaneous access was obtained via the Rt. femoral artery under fluoroscopic and ultrasound guidance using a micro puncture technique. A wire was inserted and upsized to a 5 Austrian sheath over a J-wire. A 5F Omni flush catheter was then advanced into the suprarenal aorta over the wire. Diagnostic C02 aortography was performed with the above findings. The pigtailwas again retracted into the right common iliac artery and CO2 and contrast angiograms were performed. Flush catheter was exchanged for an angled cathter. Glidewire was used to select the right renal artery bypass from the right common iliac artery. Catheter was advanced and angiogram was performed. Ca theters and wires were removed. Mynx was deployed and manual pressure was then held for 3 minutes until adequate hemostasis was obtained. The wound was dressed with a sterile gauze and tegaderm. The patient was taken to the recovery room having suffered no apparent untoward event. Dr. Moody was present for the entire procedure. Plan: 2 hours flat. Monitor RLE and right groin. Discharge home when meets criteria. Dr. Moody will follow up later today or call tomorrow, plan for future modified endograft repair ofAAA. Bo Gibson MD PGY-6 08/01/2021 2:29 PM Associated attestation - Isac Moody MD - 08/05/2021 9:20 AM EDT Attending Attestation I was the attending physician supervising the resident/fellow in the above care and I was present with the resident/fellow for the entire procedure. I was present during the intraservice time as documented by the sedation RN. documented in this encounter Plan of Treatment Scheduled Procedures Name Priority Associated Diagnoses Date/Time EGD, UPPER GI ENDOSCOPY Gastroesophageal reflux disease, esophagitis presence not specifi ed documented as of this encounter Procedures Procedure Name Priority Date/Time Associated Comments Diagnosis VS ARTERIOGRAM RENAL Routine 08/01/2021 2:16 PM Abdominal aort ic Results for this VASCULAR SURGERY EDT aneurysm (AAA) procedure are in without rupture the results section. documented in this encounter Results VS Arteriogram Renal Vascular Surgery (08/01/2021 2:16 PM EDT) Anatomical Region Laterality Modality X-Ray Angiography Specimen (Source) Anatomical Location Collection Method / Collectio n Time Received Time / Laterality Volume Narrative 08/09/2021 8:39 AM EDT Attestation signed by Isac Moody MD at 08/05/2021 ??9:20 AM Attending Attestation ?? I was the attending physician supervisin g the resident/fellow in the above care and I was present with the resident/fell ow for the entire procedure. ?? I was present during the intraservice ti me as documented by the sedation RN. ?? Vascular Surgery Interventional Procedur e Note Date of procedure: 08/01/21 Pre-Procedure Diagnosis: Thoraco-abdomin al aortic aneurysm. Post-Procedure Diagnosis: Same Procedure: - Rt. femoral ??arterial access with flu oroscopic and ultrasound guidance - Aortogram - first order selective catheterization of right renal bypass (vein) and angiography. - Mynx closure. Surgeon(s): Bo Gibson MD PGY-6 Dr. Moody. Intra-procedural Medications: Versed dose: 1 ??mg Fentanyl dose: 50 mcg Local anesthetic: 6 cc 1% lidocaine Heparin: No Units Protamine: No mg Antibiotics: Ancef 2 grams. Fluoro Time: 4.7 min Contrast: 5 mL Sheath Size: ??5 Fr Indications for the procedure: 70-year-old female with enlarging thorac oabdominal aortic aneurysm now measuring 5.6 cm. ??Patient is status post right r enal artery bypass with vein on 09/07/2018 secondary to flash pulmonary edema and e levated creatinine. Findings: -Thoracoabdominal aortic aneurysm measur ing 4.4 cm in diameter, spanning to just above the iliac bifurcation on CO2 contr ast exam, better visualized on recent CT. ?? - Celiac and inferior mesenteric arterie s are not observed, presumed occluded. -Patent SMA artery with collateral flow to the splenic and hepatic artery. -Question of moderate to severe stenosis of the proximal left common iliac artery, difficult to visualize due to ov erlying bowl gas. -Right renal artery bypass from right co mmon iliac artery to right kidney is patent. Procedure in detail: The patient was properly identified in t he pre-operative holding area. After discussions of the risks and benefits, o perative consent was obtained. The patient was brought to the angiography s [facility] and placed on the angio table. The patient was prepped and draped in the us ua sterile fashion. A time-out was performed by the attending surgeon tammy rming the patient, the intended procedure, the side of intervention and equipment needed. Split doses of fentanyl and versed were administered fo r conscious sedation by the Interventional Radiology nurse ??during continuous monitoring of pulse, blood pressure and oxygen saturation. After injection of local anesthetic, per cutaneous access was obtained via the Rt. femoral ??artery under fluoroscopic and ultrasound guidance using a micro puncture technique. A wire was inserted and upsized to a 5 Austrian sheath over a J-wire. A 5F Omni flush catheter was the n advanced into the suprarenal aorta over the wire. Diagnostic C02 aortograph y was performed with the above findings. The pigtail was again retracted into the right common iliac artery and CO2 and contrast angiograms were performed. Flus h catheter was exchanged for an angled cathter. Glidewire was used to select th e right renal artery bypass from the right common iliac artery. Catheter was advanced and angiogram was performed. Catheters and wires were removed. Mynx w as deployed and manual pressure was then held for 3 minutes until adequate hemost asis was obtained. The wound was dressed with a sterile gauze and tegaderm. The p atient was taken to the recovery room having suffered no apparent untoward oscar nt. Dr. Moody was present for the entire pr ocedure. Plan: 2 hours flat. Monitor RLE and right groin. Discharge home when meets criteria. Dr. Moody will follow up later today or call tomorrow, plan for future modified endograft repair of AAA. Thank you for letting us participate in the care of this patient. ??If you are a health care provider and have any questi ons regarding this report, please contact the number below. ??For patients who have questions please contact the health career consultant that requested your imaging first. ? Procedure Note Isac Moody MD - 08/09/2021Format ting of this note might be different from the original. Attestation signed by Isac Moody MD at 08/05/2021 9:20 AM Attending Attestation I was the attending physician supervisin g the resident/fellow in the above care and I was present with the resident/fell ow for the entire procedure. I was present during the intraservice ti me as documented by the sedation RN. Vascular Surgery Interventional Procedur e Note Date of procedure: 08/01/21 Pre-Procedure Diagnosis: Thoraco-abdomin al aortic aneurysm. Post-Procedure Diagnosis: Same Procedure: - Rt. femoral arterial access with fluor oscopic and ultrasound guidance - Aortogram - first order selective catheterization of right renal bypass (vein) and angiography. - Mynx closure. Surgeon(s): Bo Gibson MD PGY-6 Dr. Moody. Intra-procedural Medications: Versed dose: 1 mg Fentanyl dose: 50 mcg Local anesthetic: 6 cc 1% lidocaine Heparin: No Units Protamine: No mg Antibiotics: Ancef 2 grams. Fluoro Time: 4.7 min Contrast: 5 mL Sheath Size: 5 Fr Indications for the procedure: 70-year-old female with enlarging thorac oabdominal aortic aneurysm now measuring 5.6 cm. Patient is status post right meagan al artery bypass with vein on 09/07/2018 secondary to flash pulmonary edema and e levated creatinine. Findings: -Thoracoabdominal aortic aneurysm measur ing 4.4 cm in diameter, spanning to just above the iliac bifurcation on CO2 contr ast exam, better visualized on recent CT. - Celiac and inferior mesenteric arterie s are not observed, presumed occluded. -Patent SMA artery with collateral flow to the splenic and hepatic artery. -Question of moderate to severe stenosis of the proximal left common iliac artery, difficult to visualize due to ov erlying bowl gas. -Right renal artery bypass from right co mmon iliac artery to right kidney is patent. Procedure in detail: The patient was properly identified in t he pre-operative holding area. After discussions of the risks and benefits, o perative consent was obtained. The patient was brought to the angiography s [facility] and placed on the angio table. The patient was prepped and draped in the [facility] sterile fashion. A time-out was performed by the attending surgeon tammy rming the patient, the intended procedure, the side of intervention and equipment needed. Split doses of fentanyl and versed were administered fo r conscious sedation by the Interventional Radiology nurse during co ntinuous monitoring of pulse, blood pressure and oxygen saturation. After injection of local anesthetic, per cutaneous access was obtained via the Rt. femoral artery under fluoroscopic an d ultrasound guidance using a micro puncture technique. A wire was inserted and upsized to a 5 Austrian sheath over a J-wire. A 5F Omni flush catheter was the n advanced into the suprarenal aorta over the wire. Diagnostic C02 aortograph y was performed with the above findings. The pigtail was again retracted into the right common iliac artery and CO2 and contrast angiograms were performed. Flus h catheter was exchanged for an angled cathter. Glidewire was used to select th e right renal artery bypass from the right common iliac artery. Catheter was advanced and angiogram was performed. Catheters and wires were removed. Mynx w as deployed and manual pressure was then held for 3 minutes until adequate hemost asis was obtained. The wound was dressed with a sterile gauze and tegaderm. The p atient was taken to the recovery room having suffered no apparent untoward oscar nt. Dr. Moody was present for the entire pr ocedure. Plan: 2 hours flat. Monitor RLE and right groin. Discharge home when meets criteria. Dr. Moody will follow up later today or call tomorrow, plan for future modified endograft repair of AAA. Thank you for letting us participate in the care of this patient. If you are a health care provider and have any questi ons regarding this report, please contact the number below. For patients w ho have questions please contact the health career consultant that requested your imaging first. Isac Moody MD IMG IR ORDERABLES documented in this encounter Visit Diagnoses Diagnosis Abdominal aortic aneurysm (AAA) without rupture documented in this encounter Administered Medications Inactive Administered Medications - up to 3 most recent administrations Medication Order MAR Action Action Date Dose Rate Site ceFAZolin (Ancef) 2 g in New Bag 08/01/2021 1:15 PM EDT 2 g 200 mL/hr dextrose 5% 100 mL infusion 2 g, Intravenous, ONCE, 1 dose, On Cinthia 08/01/21 at 1315, Administer over 30 Minutes, Redose every 3 hours if CrCl is greater than 20. Redose every 8 hours if CrCl is less than 20., Angio/IR (Day of Procedure), Indication for (Active or Suspected): Prophylaxis fentaNYL (pf) (50 mcg/mL) multi-dose Given 08/01/2021 1:21 PM ED T 50 mcg injection 25-50 mcg 25-50 mcg, Intravenous, EVERY 3 MIN PRN, Starting on Cinthia 08/01/21 at 1238, Until Cinthia 08/01/21 at 1618, Pain, per unit protocol, - Start dose 50 mcg (reduce dose to 25 mcg if history of sedation sensitivity). - Titration dose 25-50 mcg IV, (based on patient response) every 3 minutes PRN, to maintain procedural pain less than 2 per pain Scale. Maximum dose: 50 mcg/dose, 250 mcg/hour For use in Interventional Radiology (IR) only for procedural sedation with direct provider supervision and verbal order., Angio/IR (Intra-Procedure), Routine iodixanoL (Visipaque) (320 mg/mL) injection Given 08/01/2021 1:0 0 PM EDT 5 mLs solution 1-400 mL 1-400 mL, Intra-arterial, ONCE, 1 dose, On Cinthia 08/01/21 at 1300, For intra-procedural use by proceduralist., Angio/IR (Intra-Procedure), Routine midazolam (pf) (Versed) (1 mg/mL) multi-dose Given 10/2021 1:39 PM EDT 0.5 mg injection 0.5-1 mg 0.5-1 mg, Intravenous, EVERY 3 MIN PRN, Starting on Cinthia 08/01/21 at 1238, Until Cinthia 08/01/21 at 1618, Sleep, - Start dose; 1 mg (Reduce dose to 0.5 mg if history of sedation sensitivity). - Titration dose: 0.5 mg - 1 mg (based on patient response) every 3 minutes PRN to obtain RASS score of -3. Maximum dose: 1 mg per dose, 5 mg/hour. For use in Interventional Radiology (IR) only for procedural sedation with direct provider supervision and verbal order., Angio/IR (Intra-Procedure), Routine Given 08/01/2021 1:21 PM EDT 0.5 mg documented in this encounter Care Teams Fisher Trap Relationship Specialty Start Date End Date Sanjuanita Lee MD PCP - General 03/05/13 12/23/[address] [place] [address] documented as of this encounter
--- OUTSIDE RECORDS SUMMARY | 2022-02-22 23:28 | XMS_ITS | Encounter Summary ---
:1950 Author Organization [place] [place] [address] Care Team Providers Name Role Phone Sanjuanita Lee MD Primary Care Provider Encounter Details Date Type Department Care Team Description 06/11/2021 Orders Only Nephrology Hypertension Rubén, CKD (chronic kidney at [facility] Velasquez disease) stage 4, GFR [facility] D rive 15-29 ml/[place] [address] Social History Tobacco Use Types Packs/Day [...] documented as of this encounter Results (ABNORMAL) PTH (06/25/2021 9:03 AM EST) P athologist Signature PTH 77 (H) 15 - 65 ZAKIA VICENTE pg/mL [facility] Specimen Anatomical Collection Method Collection Time Receive d Time (Source) Location / / Volume Laterality Blood 06/25/2021 9:03 AM 2 9:38 EST AM EST Resulting Agency Comment Spec In Lab Tyron Kemp MD CHEMISTRY ORDERABLES Performing Organization Address City/[facility]/ZIP Code Phon e Number [address] (ABNORMAL) Uric acid (06/25/2021 9:03 AM EST) P athologist Signature Uric Acid 7.1 (H) 2.5 - 6.5 [facility] VICENTE mg/dL [facility] Specimen Anatomical Collection Method Collection Time Receive d Time (Source) Location / / Volume Laterality Blood 06/25/2021 9:03 AM 2 9:38 EST AM EST Resulting Agency Comment Spec In Lab Tyron Kemp MD CHEMISTRY ORDERABLES Performing Organization Address City/[facility]/[place] [address] Albumin Level (06/25/2021 9:03 AM EST) P athologist Signature Albumin 4.5 3.2 - 5.2 ZAKIA VICENTE g/dL [facility] Specimen Anatomical Collection Method Collection Time Receive d Time (Source) Location / / Volume Laterality Blood 06/25/2021 9:03 AM 2 9:38 EST AM EST Resulting Agency Comment Spec In Lab Tyron Kemp MD CHEMISTRY ORDERABLES Performing Organization Address City/[facility]/ZIP Code Phon e Number [address] Phosphorus (06/25/2021 9:03 AM EST) P athologist Signature Phosphorus 3.3 2.5 - 4.5 ZAKIA VICENTE mg/dL [facility] Specimen Anatomical Collection Method Collection Time Receive d Time (Source) Location / / Volume Laterality Blood 06/25/2021 9:03 AM 2 9:38 EST AM EST Resulting Agency Comment Spec In Lab Tyron Kemp MD CHEMISTRY ORDERABLES Performing Organization Address City/State/[place] [address] (ABNORMAL) Basic Metabolic Panel (non-fasting) (06/25/2021 9:03 AM EST) P athologist Signature Glucose Lvl 122 65 - 199 [facility] mg/dL [facility] Comment: Diabetes: >=200 mg/dL plus symp toms BUN 24 (H) 8 - 18 mg/dL [facility] Creatinine 1.94 (H) 0.70 - 1.20 mg/dL [facility] Sodium 139 135 - 145 mmol/L [facility] Potassium 3.2 (L) 3.5 - 5.0 mmol/L [facility] Comment: Please note: ??Patients with WBC >100,00 0 may have falsely elevated Potassium levels. ??For accurate Potassium quantif ication in these patients send serum separator tube (gold top) for subsequent determinations. ??Contact the Clinical Chemistry Laboratory if there are any qu estions. Chloride 99 98 - 107 mmol/L [facility] CO2 26 22 - 31 mmol/L [facility] Anion Gap 14 5 - 15 mmol/L [facility] Calcium 9.1 8.5 - 10.5 mg/dL [facility] Estimated GFR 25 (L) >=60 mL/min/1.73 m?? [facility] Comment: This patient? s estimated glomerular filtration rate (eGFR) is between 25 mL/min/1.73 m2 (patients with less muscl e mass) and 29 mL/min/1.73 m2 (patients with more muscle mass) [...] (Source) Location / / Volume Laterality Blood 06/25/2021 9:03 AM 2 9:38 EST AM EST Resulting Agency Comment Spec In Lab Tyron Kemp MD CHEMISTRY ORDERABLES Performing Organization Address City/[facility]/[place] [address] Protein/Creatinine Ratio, urine (06/25/2021 9:01 AM EST) P athologist Signature U Creatinine 29 mg/dL [facility] U Protein Ran 11 0 - 12 [facility]dL [facility] Prot/Cre Ratio 0.4 ratio [facility] Specimen Anatomical Collection Method Collection Time Receive d Time (Source) Location / / Volume Laterality Urine 06/25/2021 9:01 AM 2 9:30 EST AM EST Resulting Agency Comment Spec In Lab Tyron Kemp MD URINE ORDERABLES Performing Organization Address City/[facility]/[place] [address] documented in this encounter Visit Diagnoses Diagnosis CKD (chronic kidney disease) stage 4, GF R 15-29 ml/min Chronic kidney disease, Stage IV (severe ) documented in this encounter Care Teams Data Conversion Operator Relationship Specialty Start Date End Date Sanjuanita Lee MD PCP - General 03/05/13 12/23/[address] [place] [address] documented as of this encounter
--- OUTSIDE RECORDS SUMMARY | 2022-02-22 23:28 | XMS_ITS | Encounter Summary ---
:1950 Author Organization [facility] [place] [address] Care Team Providers Name Role Phone Sanjuanita Lee MD Primary Care Provider Encounter Details Date Type Department Care Team Description 09/09/2021 Telephone Vascular Surgery at [facility] [place] [address] Social History Tobacco Use Types Packs/Day [...] this encounter Miscellaneous Notes Telephone Encounter - Petra Story - 09/09/2021 11:43 AM EDT I spoke with Charlene - she is aware we have scheduled her for her Surgery with Dr. Trevizo to be on 10/01/21. Letter sent. documented in this encounter Plan of Treatment Scheduled Procedures Name Priority Associated Diagnoses Date/Time EGD, UPPER GI ENDOSCOPY Gastroesophageal reflux disease, esophagitis presence not specifi ed documented as of this encounter Visit Diagnoses Not on filedocumented in this encounter Care Teams Hospital Unit Coordinator Relationship Specialty Start Date End Date Sanjuanita Lee MD PCP - General 03/05/13 12/23/[address] [place] [address] documented as of this encounter
--- OUTSIDE RECORDS SUMMARY | 2022-02-22 23:28 | XMS_ITS | Encounter Summary ---
:1950 Author Organization [place] [address] Care Team Providers Name Role Phone Sanjuanita Lee MD Primary Care Provider Encounter Details Date Type Department Care Team Description 09/18/2021 Telephone Public Health at [facility] [place] [address] Social History Tobacco Use Types Packs/Day [...] this encounter Miscellaneous Notes Telephone Encounter - Rosa Elena Sims - 09/18/2021 9:27 AM EDT Telephone call placed/received to schedule covid 19 testing with patient. Ordering provider: Dr. Regan Trevizo Testing Facility: [facility] Site: [facility] Date of Testin09/28/2021 Time of Testing: walk-in Symptoms: No Employee or Household Member of Employee No Healthcare Worker No documented in this encounter Plan of Treatment Scheduled Procedures Name Priority Associated Diagnoses Date/Time EGD, UPPER GI ENDOSCOPY Gastroesophageal reflux disease, esophagitis presence not specifi ed documented as of this encounter Visit Diagnoses Not on filedocumented in this encounter Care Teams Profiling Machine Set Up Operator Tool Relationship Specialty Start Date End Date Sanjuanita Lee MD PCP - General 03/05/13 12/23/[address] [place] [address] documented as of this encounter
--- OUTSIDE RECORDS SUMMARY | 2022-02-22 23:28 | XMS_ITS | Encounter Summary ---
:1950 Author Organization [facility] [place] [address] Care Team Providers Name Role Phone Sanjuanita Lee MD Primary Care Provider Encounter Details Date Type Department Care Team Description 06/04/2021 [facility] [place] [facility] [facility] aneurysm (AAA) without [facility] [address] [place], [place] VASCULAR SURGERY [id number] [place] [address] [phone] Social History Tobacco Use Types Packs/Day Years [...] Sign Reading Time Taken Comments Blood Pressure 137/52 06/04/2021 3:13 PM EST Pulse 72 06/04/2021 3:13 PM EST Temperature - - Respiratory Rate - - Oxygen Saturation - - Inhaled Oxygen Concentration - - Weight 45.4 kg (100 lb) 06/04/2021 3:13 PM EST reported Height 152.4 cm (5') 06/04/2021 3:13 PM EST reported Body Mass Index 19.53 06/04/2021 3:13 PM EST documented in this encounter Progress Notes Isac Moody MD - 06/04/2021 3:30 PM EST The patient is status post a right renal artery bypass with vein on 09/07/2018. The bypass originates from the right iliac artery. This was performed for flash pulmonary edema and elevated creatinine. Postoperatively the patient did well. Her blood pressure is under better control and she has had no further episodes of flash pulmonary edema. Labs: Creatinine today is 2.5, and has been elevated above 2.3 since [...] stenosis (66 cm/sec and 70 cm/sec). The [place] distal renal artery is patent with no [...] of rupture and we should consider repair. After our discussion she would like to hold off for now on any repair,she understands rupture carries very high mortality, Ill see her back in the office in 4 months with AAA duplex. She understands symptoms associated with rupture and to go to nearest ED. documented in this encounter Plan of Treatment Scheduled Procedures Name Priority Associated Diagnoses Date/Time EGD, UPPER GI ENDOSCOPY Gastroesophageal reflux disease, esophagitis presence not specifi ed documented as of this encounter Visit Diagnoses Diagnosis Abdominal aortic aneurysm (AAA) without rupture documented in this encounter Care Teams Well Testing Operator Relationship Specialty Start Date End Date Sanjuanita Lee MD PCP - General 03/05/13 12/23/[address] [place] [address] documented as of this encounter
--- OUTSIDE RECORDS SUMMARY | 2022-02-22 23:28 | XMS_ITS | Encounter Summary ---
:1950 Author Organization [place] [address] Care Team Providers Name Role Phone Sanjuanita Lee MD Primary Care Provider Encounter Details Date Type Department Care Team Description 07/02/2021 [facility] [place] [facility] dom[place] [facility] aneurysm (AAA) without [facility] [address] [place], [place] VASCULAR SURGERY [id number] [place] [address] [phone] Social History Tobacco Use Types Packs/Day Years [...] Sign Reading Time Taken Comments Blood Pressure 130/53 07/02/2021 12:49 PM EST Pulse 67 07/02/2021 12:49 PM EST Temperature - - Respiratory Rate - - Oxygen Saturation 98% 07/02/2021 12:49 PM EST Inhaled Oxygen Concentration - - Weight 45.2 kg (99 lb 9.6 oz) 07/02/2021 12:49 PM EST Height 152.4 cm (5') 07/02/2021 12:49 PM EST Body Mass Index 19.45 07/02/2021 12:49 PM EST documented in this encounter Progress Notes Isac Moody MD - 07/02/2021 1:00 PM [...] stenosis (66 cm/sec and 70 cm/sec). The [place] distal renal artery is patent with no [...] soon as possible. documented in this encounter Plan of Treatment Scheduled Procedures Name Priority Associated Diagnoses Date/Time EGD, UPPER GI ENDOSCOPY Gastroesophageal reflux disease, esophagitis presence not specifi ed documented as of this encounter Visit Diagnoses Diagnosis Abdominal aortic aneurysm (AAA) without rupture documented in this encounter Care Teams Senior Cisco Network Engineer Relationship Specialty Start Date End Date Sanjuanita Lee MD PCP - General 03/05/13 12/23/[address] [place] [address] documented as of this encounter
--- OUTSIDE RECORDS SUMMARY | 2022-02-22 23:28 | XMS_ITS | Encounter Summary ---
:1950 Author Organization [facility] [place] [address] Care Team Providers Name Role Phone Lexus Lawson KYRA Primary Care Provider Reason for Visit Auth/Cert Specialty Diagnoses / Procedures Referred By Contact Refer red To Contact Diagnoses AAA W/O RUPTURE Procedures ARTERIOGRAMS Referral ID Status Reason Start Date Expiration Date Visits Requ ested Visits Authorized [id number] 1 1 Encounter Details Date Type Department Care Team Description 08/01/2021 Hospital Encounter [facility] Isac Edmond, [facility] [place] [address] [address] [phone] VASCULAR SURGERY [place], [place] [address] (Wo rk) Social History Tobacco Use Types [...] on filedocumented in this encounter Care Teams Professional Bass Fisher Relationship Specialty Start Date End Date Lexus Lawson APRN PCP - General Geriatric Medicine 12/24/[address] [place] [address] documented as of this encounter
--- OUTSIDE RECORDS SUMMARY | 2022-02-22 23:28 | XMS_ITS | Encounter Summary ---
:1950 Author Organization [facility] [address] Care Team Providers Name Role Phone Sanjuanita Lee MD Primary Care Provider Encounter Details Date Type Department Care Team Description 07/10/2021 Telephone Public Health at [facility] [place] [address] Social History Tobacco Use Types Packs/Day [...] this encounter Miscellaneous Notes Telephone Encounter - Leah Barbosa - 07/10/2021 2:41 PM EDT Is this the first test for Covid 19 If no, please list date of previous test, result, and type of test (Molecular, Antigen, Antibody or unknown): Resides in senior living, custodial or other residential facility No Employee or Household Member of Employee No Healthcare Worker No Telephone call placed/received to schedule Covid 19 testing with patient. Ordering provider: Isac Moody Testing Facility: [facility] Facility Date of Testin/04 Time of Testing:TBD Symptoms: Pre Op Please send order to listed facility along with demorgraphics. documented in this encounter Plan of Treatment Scheduled Procedures Name Priority Associated Diagnoses Date/Time EGD, UPPER GI ENDOSCOPY Gastroesophageal reflux disease, esophagitis presence not specifi ed documented as of this encounter Visit Diagnoses Not on filedocumented in this encounter Care Teams Qa Consultant Relationship Specialty Start Date End Date Sanjuanita Lee MD PCP - General 03/05/13 12/23/[address] [place] [address] documented as of this encounter
--- OUTSIDE RECORDS SUMMARY | 2022-02-22 23:28 | XMS_ITS | Encounter Summary ---
:1950 Author Organization [place] [address] Care Team Providers Name Role Phone Sanjuanita Lee MD Primary Care Provider Encounter Details Date Type Department Care Team Description 08/07/2021 Orders Only Vascular Surgery at [place], Pre-o p testing; [facility] [place] Abdominal aortic aneurysm ([place]) [place] [address] Social History Tobacco Use Types Packs/Day [...] Type Priority Associated Diagnoses Order S chedule EKG 12 Lead ECG Routine Pre-op testing Expected: 08/21/2021 Abdominal aortic aneurysm (A AA) (Approximate), Expires: without rupture 02/20/2022 Scheduled Procedures Name Priority Associated Diagnoses Date/Time EGD, UPPER GI ENDOSCOPY Gastroesophageal reflux disease, esophagitis presence not specifi ed documented as of this encounter Results Prealbumin (10/01/2021 7:30 AM EDT) athologist Signature Prealbumin 23 20 - 40 [facility] mg/dL [facility] Comment: Prealbumin levels are generally lower in the pediatric population; adult concentrations are usually attained near puberty. Specimen Anatomical Collection Method Collection Time Receive d Time (Source) Location / / Volume Laterality Blood 10/01/2021 7:30 AM 8:03 EDT AM EDT Resulting Agency Comment Spec In Lab Regan Trevizo MD CHEMISTRY ORDERABLES Performing Organization Address City/State/[place] [address] (ABNORMAL) Basic Metabolic Panel (non-fasting) (10/01/2021 7:30 AM EDT) athologist [facility] Glucose Lvl 118 65 - 199 [facility] mg/dL [facility] Comment: Diabetes: >=200 mg/dL plus symp toms BUN 37 (H) 8 - 18 mg/dL [facility] Creatinine 1.99 (H) 0.70 - 1.20 mg/dL [facility] Sodium 137 135 - 145 mmol/L [facility] Potassium 3.6 3.5 - 5.0 mmol/L [facility] Comment: Please note: ??Patients with WBC >100,00 0 may have falsely elevated Potassium levels. ??For accurate Potassium quantif ication in these patients send serum separator tube (gold top) for subsequent determinations. ??Contact the Clinical Chemistry Laboratory if there are any qu estions. Chloride 101 98 - 107 mmol/L [facility] CO2 23 22 - 31 mmol/L [facility] Anion Gap 13 5 - 15 mmol/L [facility] Calcium 9.2 8.5 - 10.5 mg/dL [facility] Estimated GFR 24 (L) >=60 mL/min/1.73 m?? [facility] Comment: This patient? s [...] EDT Resulting Agency Comment Spec In Lab Regan Trevizo MD CHEMISTRY ORDERABLES Performing Organization Address City/State/ZIP Code Phon e Number [place] [phone] (ABNORMAL) Hemogram (10/01/2021 7:30 AM EDT) Analysis Performed At Patho logist Time Signature WBC 6.2 4.0 - 9.5 [facility] x[facility](3[facility] LABORATORY RBC 4.56 4.00 - [place] 5.21 [facility] x10(6)/[facility] LABORATORY Hemoglobin 12.0 11.7 [facility] 15.5 g/dL [facility] Hematocrit 37.2 35.7 - [place] 45.8 % [facility] MCV 81.6 (L) 82.6 - [place] 94.4 [facility] LABORATORY MCH 26.3 (L) 27.1 - [place] 32.[address] [facility] MCHC 32.3 31.7 - [facility] 35.0 g/dL [facility] Platelets 220 145 - 357 [facility] x[facility](3[facility] LABORATORY RDWSD 50.4 (H) 37.0 - [place] 46.0 [facility] LABORATORY RDWCV 17.2 (H) 11.5 - [place] 14.1 % [facility]ORY MPV 10.5 7.6 - 12.9 [facility] LABORATORY nRBC % Auto 0.0 % [facility] nRBC Abs Auto 0.000 0.000 - [facility] 0.000 [facility] x10(3)/[facility] LABORATORY Specimen Anatomical Collection Method Collection Time Receive d Time (Source) Location / / Volume Laterality Blood 10/01/2021 7:30 AM 8:03 EDT AM EDT Resulting Agency Comment Spec In Lab Regan Trevizo MD HEMATOLOGY ORDERABLES Performing Organization Address City/State/[place] [address] documented in this encounter Visit Diagnoses Diagnosis Pre-op testing Preoperative examination, unspecified Abdominal aortic aneurysm (AAA) without rupture documented in this encounter Care Teams Shooter Helper Relationship Specialty Start Date End Date Sanjuanita Lee MD PCP - General 03/05/13 12/23/[address] [place] [address] documented as of this encounter
--- OUTSIDE RECORDS SUMMARY | 2022-02-22 23:28 | XMS_ITS | Encounter Summary ---
:1950 Author Organization [facility] [place] [address] Care Team Providers Name Role Phone Sanjuanita Lee MD Primary Care Provider Encounter Details Date Type Department Care Team Description 06/25/2021 Laboratory Appointment Lab 3L [facility] CKD ([facility] kidney [facility] disease) stage 4, GFR [facility] 15-29 ml/ [place] [id number] Social History Tobacco Use Types Packs/Day Years [...] Name Priority Date/Time Associated Comments Diagnosis HC PARATHYROID Routine 06/25/2021 9:03 AM CKD (chronic kidney Results for this HORMONE(PTH INTACT EST disease) stage 4, proc edure are in GFR 15-29 ml/min the results section. HEMOGRAM Routine 06/25/2021 9:03 AM CKD (chronic kidney Re sults for this EST disease) stage 4, procedure are in GFR 15-29 ml/min the results section. DIFFERENTIAL, Routine 06/25/2021 9:03 AM CKD (chronic kidney R esults for this AUTOMATED EST disease) stage 4, procedure are in GFR 15-29 ml/min the results section. HC CBC,PLT & AUTO Routine 06/25/2021 9:03 AM CKD (chronic kidn ey DIFF EST disease) stage 4, GFR 15-29 ml/min HC URIC ACID, SERUM Routine 06/25/2021 9:03 AM CKD (chronic ki dney Results for this EST disease) stage 4, procedure are in GFR 15-29 ml/min the results section. HC PHOSPHORUS, SERUM Routine 06/25/2021 9:03 AM CKD (chronic k idney Results for this EST disease) stage 4, procedure are in GFR 15-29 ml/min the results section. HC ALBUMIN, SERUM Routine 06/25/2021 9:03 AM CKD (chronic kidn ey Results for this EST disease) stage 4, procedure are in GFR 15-29 ml/min the results section. BASIC METABOLIC PANEL Routine 06/25/2021 9:03 AM CKD (chronic kidney Results for this (NON-FASTING) EST disease) stage 4, procedure are in GFR 15-29 ml/min the results section. HC PROTEIN, Routine 06/25/2021 9:01 AM CKD (chronic kidney Re sults for this QUANTITATIVE, URINE EST disease) stage 4, pro cedure are in GFR 15-29 ml/min the results section. documented in this encounter Results (ABNORMAL) Differential, Automated (06/25/2021 9:03 AM EST) [facility] Method Time Signature Neutrophils % 65.0 % [facility] Neutr Abs (ANC) 5.72 1.70 - [facility] 6.10 [facility] x10(3)/[facility] LABORATORY Lymphocytes % 10.7 % [facility] Lymphocytes Abs 0.9 0.9 - 3.2 [facility] x10(3)/[facility] LABORATORY Monocytes % 16.0 % [facility] Monocyte Abs 1.4 (H) 0.3 - 0.9 [facility] x10(3)/[facility] LABORATORY Eosinophils % 6.5 % [facility] Eosinophils Abs 0.6 (H) 0.0 - 0.4 [facility] x10(3)/[facility] LABORATORY Basophils % 1.5 % [facility] Basophils Abs 0.1 0.0 - 0.1 [facility] x10(3)/[facility] LABORATORY Immature Gran % 0.30 % [facility] Comment: Immature granulocytes(IG's)percentage an d absolute count will include metamyelocytes, myelocytes, and promyelo cytes. Blood smears from CBCs yielding IG's will be scanned manually for concor dance. If this scan disagrees with the automated IG or if promyelocytes are not ed, a manual differential will be performed. Blanca Gran Abs 0.03 0.00 - 0.04 x10(3)/[facility] LABORATORY Specimen Anatomical Collection Method Collection Time Receive d Time (Source) Location / / Volume Laterality Blood 06/25/2021 9:03 AM 9:38 EST AM EST Resulting Agency Comment Spec In Lab Tyron Kemp MD HEMATOLOGY ORDERABLES Performing Organization Address City/State/[place] [address] Hemogram (06/25/2021 9:03 AM EST) P athologist Signature WBC 8.8 4.0 - 9.5 [facility] x10(3)/[facility] LABORATORY RBC 4.27 4.00 - [facility] 5.21 [facility] x10(6)/[facility] LABORATORY Hemoglobin 12.4 11.7 - [facility] 15.5 g/dL [facility] Hematocrit 38.0 35.7 - [facility] 45.8 % [facility] MCV 89.0 82.6 - [facility] 94.4 fL [facility] MCH 29.0 27.1 - [facility] 32.0 [facility] LABORATORY MCHC 32.6 31.7 - [place] 35.0 g/dL [facility]ORATORY Platelets 337 145 - 357 [facility] x10(3)/[facility] LABORATORY RDWSD 44.9 37.0 - [facility] 46.0 [facility] LABORATORY RDWCV 13.7 11.5 - [facility] 14.1 % [facility] LABORATORY MPV 10.2 7.6 - 12.9 [facility] LABORATORY nRBC % Auto 0.0 % [facility]OR[facility] nRBC Abs Auto 0.000 0.000 - [place] 0.000 [facility] x10(3)/[facility] LABORATORY Specimen Anatomical Collection Method Collection Time Receive d Time (Source) Location / / Volume Laterality Blood 06/25/2021 9:03 AM 9:38 EST AM EST Resulting Agency Comment Spec In Lab Tyron Kemp MD HEMATOLOGY ORDERABLES Performing Organization Address City/State/[place] [address] (ABNORMAL) Basic Metabolic Panel (non-fasting) (06/25/2021 9:03 AM EST) P athologist Signature Glucose Lvl 122 65 - 199 [facility] mg/dL [facility] Comment: Diabetes: >=200 mg/dL plus symp toms BUN 24 (H) 8 - 18 mg/dL [facility] Creatinine 1.94 (H) 0.70 - 1.20 mg/dL [facility] Sodium 139 135 - 145 mmol/L [facility] Potassium 3.2 (L) 3.5 - 5.0 mmol/L [facility] Comment: Please note: ??Patients with WBC >100,00 0 may have falsely elevated Potassium levels. ??For accurate Potassium quantif ication in these patients send serum separator tube (gold top) for subsequent determinations. ??Contact the Clinical Chemistry Laboratory if there are any qu estions. Chloride 99 98 - 107 mmol/L [facility] CO2 26 22 - 31 mmol/L [facility] Anion Gap 14 5 - 15 mmol/L [facility] Calcium 9.1 8.5 - 10.5 mg/dL [facility] Estimated GFR 25 (L) >=60 mL/min/1.73 m?? [facility] Comment: This patient? [...] Organization Address City/State/ZIP Code Phon e Number [address] Phosphorus (06/25/2021 9:03 AM EST) P athologist Signature Phosphorus 3.3 2.5 - 4.5 [facility] mg/dL [facility] Specimen Anatomical Collection Method Collection Time Receive d Time (Source) Location / / Volume Laterality Blood 06/25/2021 9:03 AM 2 9:38 EST AM EST Resulting Agency Comment Spec In Lab Tyron Kemp MD CHEMISTRY ORDERABLES Performing Organization Address City/State/[place] [address] Albumin Level (06/25/2021 9:03 AM EST) P athologist Signature Albumin 4.5 3.2 - 5.2 [facility] g/dL [facility] Specimen Anatomical Collection Method Collection Time Receive d Time (Source) Location / / Volume Laterality Blood 06/25/2021 9:03 AM 2 9:38 EST AM EST Resulting Agency Comment Spec In Lab Tyron Kemp MD CHEMISTRY ORDERABLES Performing Organization Address City/[facility]/ZIP [place] [address] (ABNORMAL) Uric acid (06/25/2021 9:03 AM EST) P athologist Signature Uric Acid 7.1 (H) 2.5 - 6.5 [facility] mg/dL [facility] Specimen Anatomical Collection Method Collection Time Receive d Time (Source) Location / / Volume Laterality Blood 06/25/2021 9:03 AM 2 9:38 EST AM EST Resulting Agency Comment Spec In Lab Tyron Kemp MD CHEMISTRY ORDERABLES Performing Organization Address [facility]/ZIP [place] [address] (ABNORMAL) PTH (06/25/2021 9:03 AM EST) P athologist Signature PTH 77 (H) 15 - 65 [facility] pg/mL [facility] Specimen Anatomical Collection Method Collection Time Receive d Time (Source) Location / / Volume Laterality Blood 06/25/2021 9:03 AM 2 9:38 EST AM EST Resulting Agency Comment Spec In Lab Tyron Kemp MD CHEMISTRY ORDERABLES Performing Organization Address City/[facility]/ZIP [place] [address] Protein/Creatinine Ratio, urine (06/25/2021 9:01 AM EST) P athologist Signature U Creatinine 29 mg/dL [facility] U Protein Ran 11 0 - 12 [facility] mg/dL [facility] Prot/Cre Ratio 0.4 ratio [facility] Specimen Anatomical Collection Method Collection Time Receive d Time (Source) Location / / Volume Laterality Urine 06/25/2021 9:01 AM 2 9:30 EST AM EST Resulting Agency Comment Spec In Lab Tyron Kemp MD URINE ORDERABLES Performing Organization Address City/State/[place] [address] documented in this encounter Visit Diagnoses Diagnosis CKD (chronic kidney disease) stage 4, GF R 15-29 ml/min Chronic kidney disease, Stage IV (severe ) documented in this encounter Care Teams Weight Checker Relationship Specialty Start Date End Date Sanjuanita Lee MD PCP - General 03/05/13 12/23/[address] [place] [address] documented as of this encounter
--- OUTSIDE RECORDS SUMMARY | 2022-02-22 23:28 | XMS_ITS | Encounter Summary ---
:1950 Author Organization [facility] [address] Care Team Providers Name Role Phone Sanjuanita Lee MD Primary Care Provider Reason for Referral Diagnostic Test (Emergency) - Authorized Specialty Diagnoses / Procedures Referred By Contact Refer red To Contact Radiology Diagnoses Abdominal aortic aneurysm (AAA) without rupture Isac Moody MD [facility] Rad Ct Scan Procedures CT Angiogram Chest Abdomen Pelvis w Contrast [facility] [place] [address] [place] [address] Referral ID Status Reason Start Expiration Visits Visits Date Date Requested Authorized [id number] Authorized Specialty 07/02/2021 01/02/2023 1 1 Service Requested Encounter Details Date Type Department Care Team Description 07/02/2021 Orders Only Vascular Surgery at [facility] Abdo minal aortic [facility] RN aneurysm (AAA) without [facility] [place] [address] Social History Tobacco Use Types Packs/Day [...] Priority Associated Diagnoses Order S chedule CT Angiogram Chest Imaging STAT Abdominal aortic Expec ti: 07/09/2021 Abdomen Pelvis w aneurysm (AAA) without ( Approximate), Contrast rupture Expires: 2021 Scheduled Procedures Name Priority Associated Diagnoses Date/Time EGD, UPPER GI ENDOSCOPY Gastroesophageal reflux disease, esophagitis presence not specifi ed documented as of this encounter Visit Diagnoses Diagnosis Abdominal aortic aneurysm (AAA) without rupture documented in this encounter Care Teams Snuff Box Finisher Relationship Specialty Start Date End Date Sanjuanita Lee MD PCP - General 03/05/13 12/23/[address] [place] [address] documented as of this encounter
--- OUTSIDE RECORDS SUMMARY | 2022-02-22 23:28 | XMS_ITS | Encounter Summary ---
:1950 Author Organization [facility] [address] Care Team Providers Name Role Phone Sanjuanita Lee MD Primary Care Provider Reason for Referral Diagnostic Test (Routine) - Closed Specialty Diagnoses / Procedures Referred By Contact Refer red To Contact Radiology Diagnoses Abdominal aortic aneurysm (AAA) without rupture Isac Moody MD [facility] Interventionl Rad Procedures VS Arteriogram Renal Vascular Surgery [facility] [place] [address] [place] [address] Referral ID Status Reason Start Date Expiration Date Visits V isits Requested Authorized [id number] Closed Specialty 08/01/2021 04/26/2022 1 1 Service Requested Encounter Details Date Type Department Care Team Description 07/08/2021 Orders Only Vascular Surgery at [facility] Abdo minal aortic [facility] RN aneurysm (AAA) without [facility] [place] [address] Social History Tobacco Use Types Packs/Day [...] ed documented as of this encounter Results VS Arteriogram Renal Vascular [...] patient was brought to the angiography s [facility] and placed on the angio table. The patient was prepped and draped in the [facility] sterile fashion. A time-out was performed by [...] was inserted and upsized to a 5 Bulgarian sheath over a J-wire. A 5F Omni [...] who have questions please contact the health senior caregiver that requested your imaging first. ? Electronically signed by: Isac Moody MD, [facility] ([phone]), at 08/09/2021 8:39 AM Procedure Note Isac Moody MD - 08/09/2021Format [...] patient was brought to the angiography s ui and placed on the angio table. The [...] was inserted and upsized to a 5 Bulgarian sheath over a J-wire. A 5F Omni [...] ho have questions please contact the health senior caregiver that requested your imaging first. Isac Moody MD IMG IR ORDERABLES (ABNORMAL) Creatinine (08/01/2021 11:17 AM EDT) Analysis Performed At [facility] Time Signature Creatinine 2.76 (H) 0.70 - [facility] 1.20 mg/dL [facility] Estimated GFR 16 (L) >=60 [facility] mL/min/1.[address]?? [facility] Comment: This patient? s estimated [...] (Source) Location / / Volume Laterality Blood 08/01/2021 11:17 08/01/2021 AM EDT 12:09 PM EDT Resulting Agency Comment Spec In Lab Isac Moody MD CHEMISTRY ORDERABLES Performing Organization Address City/State/[place] [address] documented in this encounter Visit Diagnoses Diagnosis Abdominal aortic aneurysm (AAA) without rupture Abdominal aortic aneurysm (AAA) without rupture documented in this encounter Care Teams Director Of Learning Relationship Specialty Start Date End Date Sanjuanita Lee MD PCP - General 03/05/13 12/23/[address] [place] [address] documented as of this encounter
--- OUTSIDE RECORDS SUMMARY | 2022-02-22 23:28 | XMS_ITS | Encounter Summary ---
:1950 Author Organization [facility] [place] [address] Care Team Providers Name Role Phone Sanjuanita Lee MD Primary Care Provider Reason for Visit Reason Comments Chronic Kidney Disease Encounter Details Date Type Department Care Team Description 06/25/2021 Office Visit Nephrology Tyron Kemp MD [facility] [place] [address] CKD (chronic kidney disease) stage 4, GF R 15-29 ml/min; Hypertension at [facility] News Writer, A None Hypertensive kidney [place] [address] Social History Tobacco Use Types Packs/Day [...] Sign Reading Time Taken Comments Blood Pressure 113/54 06/25/2021 10:16 AM EST Pulse 80 06/25/2021 10:16 AM EST Temperature - - Respiratory Rate - - Oxygen Saturation - - Inhaled Oxygen Concentration - - Weight 47.6 kg (105 lb) 06/25/2021 10:16 AM EST Height - - Body Mass Index 20.51 06/04/2021 3:13 PM EST documented in this encounter Patient Instructions Patient InstructionsEva Montana RN - 06/25/2021 10:28 AM EST Your kidney function continues to slowly improve. Your potassium is a little low. You can increase your potassium intake. Call if you feel differently (consistent symptoms of nausea, vomiting, little appeal for food, itching, change in sleep patterns, worsening energy levels, shortness of breath). These are some of the signs of worsening kidney function. We will see you sooner if you are not feeling well. Please call. Eva COOK-leadite man Kidney Disease Nurse Clinician [facility] Nephrology documented in this encounter Progress Notes Tyron Kemp MD - 06/25/2021 10:00 AM EST [facility] [address] [place] [address] Reason for Clinic Visit: Systems Review and CKD management. Seen in clinic with: Eva COOK-RN CKD Nurse Clinician CKD related to: uncontrolled HTN and renal ischemia Summary: 70-year-old female history of CKD stage IV and diffuse atherosclerotic vascular disease presents for follow-up. She has a history of right renal bypass. eGFR stable at 25 mL/min. Blood pressure has been well controlled. She is mildly hypokalemic and she is given information on dietary supplementation. She has an enlarging AAA and is likely going to have repair in the coming months. We await definitive plan. Hemoglobin 12.4 g/dL not consistent with significant anemia. Patient does not have metabolic acidosis. Calcium and phosphorus well controlled she does have some element of secondary h yperparathyroidism. History obtained by RN Specialist: Last seen in clinic 02/19/21 eGFR 21. Has been doing well since the last visit. Vascular is recommending AAA repair as it has grown in size and she is medically optimized. Review of Systems: Sign/Symptom Comments Activity level/fatigue: Good - can do the things she wants to do Change in sleep patterns: Improved since started on trazadone. On gabapentin for RLS- has trouble quieting her mind. Nocturia: 0-1x Appetite changes: Good Food aversions: None specific- everything tastes bland Nausea: None Vomiting: None Bowels: Well managed with medications Edema: None Shortness of breath: None Orthopnea/PND: No PND - 2 pillows Muscle Cramping: Resolved for now - Leg cramps particularly feet at night. Recommended bar of soap in the bed but didn't help Cold intolerance: Yes - all the time Itching: Improved to none Bruising/bleeding: Easy bruising - no unusual bleeding Mental Status Changes: None - reports improving concentration - about 90% Recent Home Blood Pressure Control: Takes 3x weekly - brought in logs - Average 110-130 systolic Recent Lipid Management: On Atorvastatin Recent Diabetic Management Not a diabetic Additional CCM Comments: How's your health been in the last 4 weeks: Poor, Fair, Good, Very Good Excellent Advanced Directives: on file in eD-H Social Determinant Date/Comments Food Security/ Nutritional Education Low Sodium diet Stable Housing/ Safety Concerns Lives with Community Supports/ Transportation issues/ Appointment coordination Drives - [address] [facility] Functional Status/ Assistive devices Independent Learning Style/Considerations [...] Has been deemed not a candidate by [facility] transplant. Discussed other transplant program options but eGFR >20. Fistula Date/Type of Initial Access/Surgeon: PMH: Past Medical History: Diagnosis Date ??? AAA (abdominal aortic aneurysm) [id number] angiogram; 3.2 cm infrarenal ??? Constipation ??? [...] mouth every evening. 90 tablet 3 ??? acetaminophen (TYLENOL) 500 mg Tablet Take 1 tablet by mouth every 6 hours. 30 tablet 1 ??? aspirin 81 mg Tablet, Delayed Release (E.C.) Take 81 mg by mouth daily. ??? cloNIDine (CATAPRES) 0.1 mg Tablet Take 1 tablet by mouth every 8 hours as needed (Please take 1tablet, if systolic blood pressure is >200). (Patient not taking: Reported on 06/25/2021) 30 tablet3 No current facility-administered medications for this visit. PHYSICAL EXAM: Vitals: 06/25/21 1016 BP: 113/54 Pulse: 80 Weight: 47.6 kg (105 lb) Body mass index is 20.51 kg/m??. Gen: WD WN female in NAD HEENT: EOMI, PERRL, Oropharynx moist without lesions Neck: Full range of motion, no bruits, no lymphadenopathy or thyromegaly Lungs: Clear to auscultation and percussion, no wheezes or rales Chest/Back: no spinal tenderness, no CVAT Heart: RRR, S1,S2, no murmur, gallop or rub Abdomen: soft, nontender, no hepatosplenomegaly, masses or distention, normal active bowel sounds, no abdominal bruits Neurological: Oriented x3, Strength intact 5/5 upper and lower extremities Extremities: No clubbing, cyanosis or edema Skin: no rashes, lesions, plaques or nodules Psych: Mood and affect congruent Recent Results (from the past 336 hour(s)) Protein/Creatinine Ratio, urine Collection Time: 06/25/21 9:01 AM Result Value Ref Range U Creatinine 29 mg/dL U Protein Ran 11 0 - 12 mg/dL Prot/Cre Ratio 0.4 ratio PTH Collection Time: 06/25/21 9:03 AM Result Value Ref Range PTH 77 (H) 15 - 65 pg/mL Uric acid Collection Time: 06/25/21 9:03 AM Result Value Ref Range Uric Acid 7.1 (H) 2.5 - 6.5 mg/dL Albumin Level Collection Time: 06/25/21 9:03 AM Result Value Ref Range Albumin 4.5 3.2 - 5.2 g/dL Phosphorus Collection Time: 06/25/21 9:03 AM Result Value Ref Range Phosphorus 3.3 2.5 - 4.5 mg/dL Basic Metabolic Panel (non-fasting) Collection Time: 06/25/21 9:03 AM Result Value Ref Range Glucose Lvl 122 65 - 199 mg/dL BUN 24 (H) 8 - 18 mg/dL Creatinine 1.94 (H) 0.70 - 1.20 mg/dL Sodium 139 135 - 145 mmol/L Potassium 3.2 (L) 3.5 - 5.0 mmol/L Chloride 99 98 - 107 mmol/L CO2 26 22 - 31 mmol/L Anion Gap 14 5 - 15 mmol/L Calcium 9.1 8.5 - 10.5 mg/dL Estimated GFR 25 (L) >=60 mL/min/1.73 m?? Hemogram Collection Time: 06/25/21 9:03 AM Result Value Ref Range WBC 8.8 4.0 - 9.5 x10(3)/mcL RBC 4.27 4.00 - 5.21 x10(6)/mcL Hemoglobin 12.4 11.7 - 15.5 g/dL Hematocrit 38.0 35.7 - 45.8 % MCV 89.0 82.6 - 94.4 fL MCH 29.0 27.1 - 32.0 pg MCHC 32.6 31.7 - 35.0 g/dL Platelets 337 145 - 357 x10(3)/mcL RDWSD 44.9 37.0 - 46.0 fL RDWCV 13.7 11.5 - 14.1 % MPV 10.2 7.6 - 12.9 fL nRBC % Auto 0.0 % nRBC Abs Auto 0.000 0.000 - 0.000 x10(3)/mcL Differential, Automated Collection Time: 06/25/21 9:03 AM Result Value Ref Range Neutrophils % 65.0 % Neutr Abs (ANC) 5.72 1.70 - 6.10 x10(3)/mcL Lymphocytes % 10.7 % Lymphocytes Abs 0.9 0.9 - 3.2 x10(3)/mcL Monocytes % 16.0 % Monocyte Abs 1.4 (H) 0.3 - 0.9 x10(3)/mcL Eosinophils % 6.5 % Eosinophils Abs 0.6 (H) 0.0 - 0.4 x10(3)/mcL Basophils % 1.5 % Basophils Abs 0.1 0.0 - 0.1 x10(3)/mcL Immature Gran % 0.30 % Blanca Gran Abs 0.03 0.00 - 0.04 x10(3)/mcL ASSESSMENT AND PLAN: Problem: Chronic Kidney Disease Estimated GFR (mL/min/1.73 m??) Date Value 06/25/2021 25 (L) 02/19/2021 21 (L) 06/27/2020 21 (L) CKD Stage 4 Potassium Date Value Ref Range Status 06/25/2021 3.2 (L) 3.5 - 5.0 mmol/L Final Comment: Please note: Patients with WBC >100,000 may have falsely elevated Potassium levels. For accurate Potassium quantification in these patients send serum separator tube (gold top) for subsequent determinations. Contact the Clinical Chemistry Laboratory if there are any questions. 02/19/2021 4.1 3.5 - 5.0 mmol/L Final Comment: Please note: Patients with WBC >100,000 may have falsely elevated Potassium levels. For accurate Potassium quantification in these patients send serum separator tube (gold top) for subsequent determinations. Contact the Clinical Chemistry Laboratory if there are any questions. 06/27/2020 3.8 3.5 - 5.0 mmol/L Final Comment: Please note: Patients with WBC >100,000 may have falsely elevated Potassium levels. For accurate Potassium quantification in these patients send serum separator tube (gold top) for subsequent determinations. Contact the Clinical Chemistry Laboratory if there are any questions. CO2 (mmol/L) Date Value 06/25/2021 26 02/19/2021 28 06/27/2020 30 Does not tolerate sodium bicarbonate Uric Acid (mg/dL) Date Value 06/25/2021 7.1 (H) 02/19/2021 7.6 (H) 06/27/2020 7.1 (H) not on allopurinol Standard Recommendations: Reduce rate of progression. Education for CKD stage- specific issues. RN Notes: Your kidney function continues to slowly improve. Your potassium is a little low. You can increase your potassium intake. Call if you feel differently (consistent symptoms of nausea, vomiting, little appeal for food, itching, change in sleep patterns, worsening energy levels, shortness of breath). These are some of the signs of worsening kidney function. We will see you sooner if you are not feeling well. /METALLURGICAL ENGINEERING TEACHER A/P: Problem: Management of Anemia related to Chronic Kidney Disease (CKD) Hemoglobin (g/dL) Date Value 06/25/2021 12.4 Goal: 9.5-10.9 g/dl Ferritin (ng/mL) Date Value 05/24/2019 81 Goal: >100ng/ml Iron Saturation (%) Date Value 05/24/2019 16 (L) Goal: >20% LAKESHA: No IV Iron replacement therapy (Venofer), Last dose: Dec 2018??received 1 iron infusion - declines additional infusions RN Notes: Does not meet criteria for LAKESHA MD/METALLURGICAL ENGINEERING TEACHER A/P: Problem: Hypertension BP: (113)/(54) Goal (if urine alb:cr ratio is <30mg/g): </= 140/90 Goal (if urine alb:cr ratio is >30mg/g): </= 130/80 Standard Recommendations: Sodium intake < 2 Gm per day. RN Notes: None MD/METALLURGICAL ENGINEERING TEACHER A/P: Problem: Proteinuria Prot/Cre Ratio (ratio) Date Value 06/25/2021 0.4 Goal: <0.2mg/mg RN Notes: None MD/METALLURGICAL ENGINEERING TEACHER A/P: Problem: Bone and mineral metabolism 25-OH Vit D Total (ng/mL) Date Value 02/19/2021 46 01/09/2019 52 07/19/2018 35 not on vitamin D PTH (pg/mL) Date Value 06/25/2021 77 (H) 02/19/2021 83 (H) 06/27/2020 88 (H) not on calcitriol Goal: Stage 3: 35-70 pg/ml Stage 4: 70-110 pg/ml Stage 5: 150-300 pg/ml Phosphorus (mg/dL) Date Value 06/25/2021 3.3 02/19/2021 3.6 06/27/2020 3.9 Not on binder Goal: 2.7-4.6mg/dl Calcium (mg/dL) Date Value 06/25/2021 9.1 02/19/2021 9.6 06/27/2020 9.6 Not on calcium supplement Goal: 8.5-10.5mg/dl RN Notes: None MD/METALLURGICAL ENGINEERING TEACHER A/P: Problem: Nutrition Albumin Date Value 06/25/2021 4.5 g/dL 02/19/2021 4.4 g/dL 06/27/2020 4.6 gm/dL Goal: >/= 4.0 gm/dl Body mass index is 20.51 kg/m??. Goal: 20-25 kg/m2 RN Notes: None MD/METALLURGICAL ENGINEERING TEACHER A/P: Problem: Dyslipidemia No results found for: LDLCHOL Goal: <100 mg/dl No results found for: TRIG Goal: <150 mg/dl On atorvastatin 20 mg nightly RN Notes: None MD/METALLURGICAL ENGINEERING TEACHER A/P: Time Attestation: Return to CKD clinic: 6 months - may change pending surgery documented in this encounter Plan of Treatment Scheduled Procedures Name Priority Associated Diagnoses Date/Time EGD, UPPER GI ENDOSCOPY Gastroesophageal reflux disease, esophagitis presence not specifi ed documented as of this encounter Visit Diagnoses Diagnosis CKD (chronic kidney disease) stage 4, GF R 15-29 ml/min Chronic kidney disease, Stage IV (severe ) Hypertensive kidney disease with CKD sta ge IV Unspecified hypertensive kidney disease with chronic kidney disease stage I through stage IV, or unspecified documented in this encounter Care Teams Counter Installer Relationship Specialty Start Date End Date Sanjuanita Lee MD PCP - General 03/05/13 12/23/[address] [place] [address] documented as of this encounter
--- OUTSIDE RECORDS SUMMARY | 2022-02-22 23:28 | XMS_ITS | Encounter Summary ---
:1950 Author Organization [facility] [place] [address] Care Team Providers Name Role Phone Sanjuanita Lee MD Primary Care Provider Encounter Details Date Type Department Care Team Description 08/02/2021 Telephone Vascular Surgery at [facility] Candy Baron, [place] [address] Social History Tobacco Use Types Packs/Day [...] this encounter Miscellaneous Notes Telephone Encounter - Candy Baron RN - 08/02/2021 2:17 PM EDT Patient called in today wondering what the next plan would be for her going forward. Fabric Worker Supervisor sent message to Dr. Moody to follow. Patient understands. documented in this encounter Plan of Treatment Scheduled Procedures Name Priority Associated Diagnoses Date/Time EGD, UPPER GI ENDOSCOPY Gastroesophageal reflux disease, esophagitis presence not specifi ed documented as of this encounter Visit Diagnoses Not on filedocumented in this encounter Care Teams Urologic Nurse Relationship Specialty Start Date End Date Sanjuanita Lee MD PCP - General 03/05/13 12/23/[address] [place] [address] documented as of this encounter
--- OUTSIDE RECORDS SUMMARY | 2022-02-22 23:28 | XMS_ITS | Encounter Summary ---
:1950 Author Organization [facility] [place] [address] Care Team Providers Name Role Phone Sanjuanita Lee MD Primary Care Provider Encounter Details Date Type Department Care Team Description 07/08/2021 Orders Only Vascular Surgery at Rhea Mcfadden Abdo minal aortic [facility] RN aneurysm (AAA) without [facility] [place] [address] Social History Tobacco Use Types Packs/Day [...] rupture documented in this encounter Care Teams Balance Engineer Relationship Specialty Start Date End Date Sanjuanita Lee MD PCP - General 03/05/13 12/23/[address] [place] [address] documented as of this encounter
--- OUTSIDE RECORDS SUMMARY | 2022-02-22 23:28 | XMS_ITS | Encounter Summary ---
:1950 Author Organization [place] [address] Care Team Providers Name Role Phone Sanjuanita Lee MD Primary Care Provider Encounter Details Date Type Department Care Team Description 07/02/2021 Orders Only Vascular Surgery at Candy Baron bdominal aortic aneurysm (AAA) without rupture; [facility] A, RN Stage 5 [place] [id number] Social History Tobacco Use Types Packs/Day Years [...] documented as of this encounter Results (ABNORMAL) Creatinine (07/04/2021 8:24 AM EST) Analysis Performed At Patho logist Time Signature Creatinine 2.03 (H) 0.70 - ZAKIA ZHANG 1.20 mg/dL [facility] Estimated GFR 24 (L) >=60 ZAKIA ZHANG mL/min/1.7 [facility] 3 ?? [facility] Comment: This patient? s [...] (Source) Location / / Volume Laterality Blood 07/04/2021 8:24 AM 8:45 EST AM EST Resulting Agency Comment Spec In Lab Isac Moody MD CHEMISTRY ORDERABLES Performing Organization Address City/State/ZIP Code Phon e Number [facility] [address] documented in this encounter Visit Diagnoses Diagnosis Abdominal aortic aneurysm (AAA) without rupture Stage 5 chronic kidney disease documented in this encounter Care Teams Spiral Tube Winder Relationship Specialty Start Date End Date Sanjuanita Lee MD PCP - General 03/05/13 12/23/[address] [place] [address] documented as of this encounter
--- OUTSIDE RECORDS SUMMARY | 2022-02-22 23:28 | XMS_ITS | Encounter Summary ---
:1950 Author Organization [facility] [place] [address] Care Team Providers Name Role Phone Sanjuanita Lee MD Primary Care Provider Reason for Referral Diagnostic Test (Emergency) - Authorized Specialty Diagnoses / Procedures Referred By Contact Refer red To Contact Radiology Diagnoses Abdominal aortic aneurysm (AAA) without rupture Isac Moody MD [facility] Rad Ct Scan Procedures CT Angiogram Chest Abdomen Pelvis w Contrast [facility] [place] [address] [place] [address] Referral ID Status Reason Start Expiration Visits Visits Date Date Requested Authorized [id number] Authorized Specialty 07/02/2021 01/02/2023 1 1 Service Requested Reason for Visit Diagnostic Test (Emergency) - Authorized Specialty Diagnoses / Procedures Referred By Contact Refer red To Contact Radiology Diagnoses Abdominal aortic aneurysm (AAA) without rupture Isac Moody MD [facility] Rad Ct Scan Procedures CT Angiogram Chest Abdomen Pelvis w Contrast [facility] [place] [address] [place] [address] Referral ID Status Reason Start Expiration Visits Visits Date Date Requested Authorized [id number] Authorized Specialty 07/02/2021 01/02/2023 1 1 Service Requested Encounter Details Date Type Department Care Team Description 07/04/[address] Scan at [facility] Isac Moody Abdominal aortic [facility] MD [place] aneurysm (AAA) Drive [facility] without rupture [place], [place] [facility] [phone] VASCULAR SURGERY [phone] [place] [address] Social History Tobacco Use Types Packs/Day Years [...] CT Angiogram Chest Imaging STAT Abdominal aortic 1 Occ urrences starting Abdomen Pelvis w aneurysm (AAA) without 0 07/04/2021 until Contrast rupture 07/04/2021 Scheduled Procedures Name Priority Associated Diagnoses Date/Time EGD, UPPER GI ENDOSCOPY Gastroesophageal reflux disease, esophagitis presence not specifi ed documented as of this encounter Visit Diagnoses Diagnosis Abdominal aortic aneurysm (AAA) without rupture documented in this encounter Care Teams Programmer Numerical Control Relationship Specialty Start Date End Date Sanjuanita Lee MD PCP - General 03/05/13 12/23/[address] [place] [address] documented as of this encounter
--- OUTSIDE RECORDS SUMMARY | 2022-02-22 23:28 | XMS_ITS | Encounter Summary ---
:1950 Author Organization [facility] [place] [address] Care Team Providers Name Role Phone Sanjuanita Lee MD Primary Care Provider Reason for Visit Reason Comments Chronic Kidney Disease Encounter Details Date Type Department Care Team Description 02/19/2021 Office Visit Nephrology Tyron Kemp MD [facility] [place] [address] CKD (chronic kidney disease) stage 4, GF R 15-29 ml/min; [place] [facility] [place] Staff, A None Hypertensive kidney disease with CKD sta ge IV; [facility] [place] [address] Social History Tobacco Use Types Packs/Day Years [...] Sign Reading Time Taken Comments Blood Pressure 117/67 02/19/2021 1:04 PM EDT Pulse 75 02/19/2021 1:04 PM EDT Temperature - - Respiratory Rate - - Oxygen Saturation - - Inhaled Oxygen Concentration - - Weight 46.5 kg (102 lb 8 oz) 02/19/2021 1:04 PM EDT Height - - Body Mass Index 20.02 05/14/2020 10:07 AM EST documented in this encounter Patient Instructions Patient InstructionsEva Montana RN - 02/19/2021 1:00 PM EDT Your blood pressures have been good. We can look at reducing your hydralazine if you are interested. Call if you feel differently (consistent symptoms of nausea, vomiting, little appeal for food, itching, change in sleep patterns, worsening energy levels, shortness of breath). These are some of the signs of worsening kidney function. We will see you sooner if you are not feeling well. Please call. Eva ENCISO Chronic Kidney Disease Nurse Specialist at [facility] Nephrology. documented in this encounter Progress Notes Tyron Kemp MD - 02/19/2021 1:00 PM EDT [facility] [address] [place] [address] Reason for Clinic Visit: Systems Review and CKD management. Seen in clinic with: Eva COOK-RN CKD Nurse Clinician CKD related to: uncontrolled HTN and renal ischemia Summary 70-year-old female with history of CKD stage IV presents for follow-up and care management clinic. Patient has a history of significant renovascular disease status post bypass which has been stable in the interval. GFR 21 mL/min completely stable from 7 months ago. Patient presents her diligent home blood pressure log with nearly 100% of readings within goal. With this said resistant by definition asshe is on 5 agents including a diuretic. She has not required any as needed clonidine. Patient continues to avoid salt. She is tolerating her medicines without issue and we will continue this regimen for now. She is euvolemic and in fact appears more robust compared to last time I saw her in clinic. She has no significant anemia. She has mild secondary hyperparathyroidism, calcium and phosphorus are well controlled and nutritional vitamin D level currently pending. We will follow-up with her in 6 months unless changes in her health History obtained by RN Specialist: Last seen in clinic 06/27/20 eGFR 21. Has been doing well since thelast visit. Review of Systems: Sign/Symptom Comments Activity level/fatigue: Good - can do the things she wants to do Change in sleep patterns: Not- has trouble quieting her mind. Reflux no longer keeps her up. Nocturia: 0-1x Appetite changes: Good Food aversions: None Nausea: None Vomiting: None Bowels: Well managed with medications Edema: None Shortness of breath: None Orthopnea/PND: No PND - 2 pillows - able to stay in bed all night now Muscle Cramping: Yes - Leg cramps particularly feet at night. Recommended bar of soap in the bed butdidn't help Cold intolerance: Yes - all the time Itching: A little Bruising/bleeding: Easy bruising - no unusual bleeding [...] Diagnosis Date ??? AAA (abdominal aortic aneurysm) [id number] angiogram; 3.2 cm infrarenal ??? Constipation ??? Dyslipidemia ??? Hypertension ??? Insomnia ??? Peripheral vascular disease ??? Renal artery stenosis R; per 2009 angiogram ??? SBO (small bowel obstruction) ALLERGIES: No Known Allergies MEDICATIONS: Current Outpatient Medications Medication Sig Dispense Refill ??? senna-docusate (Pericolace) 8.6-50 mg Tablet Take 1 tablet by mouth daily. 60 tablet 0 ??? carvediloL (Coreg) 12.5 mg Tablet Take [...] mg by mouth 2 times daily. ??? melatonin 5 mg Tablet Take by mouth. ??? furosemide (Lasix) 20 mg Tablet Take 20 mg by mouth 2 times daily. Takes at 0800 and 1600 ??? gabapentin (NEURONTIN) 100 mg Capsule Take 100 mg by mouth nightly. ??? atorvastatin (LIPITOR) [...] medications for this visit. PHYSICAL EXAM: Vitals: 02/19/21 1304 BP: 117/67 Pulse: 75 Weight: 46.5 kg (102 lb 8 oz) Body mass index is 20.02 kg/m??. Recent Results (from the past 336 hour(s)) PTH Collection Time: 02/19/21 12:24 PM Result Value Ref Range PTH 83 (H) 15 - 65 pg/mL Uric acid Collection Time: 02/19/21 12:24 PM Result Value Ref Range Uric Acid 7.6 (H) 2.5 - 6.5 mg/dL Albumin Level Collection Time: 02/19/21 12:24 PM Result Value Ref Range Albumin 4.4 3.2 - 5.2 g/dL Phosphorus Collection Time: 02/19/21 12:24 PM Result Value Ref Range Phosphorus 3.6 2.5 - 4.5 mg/dL Basic Metabolic Panel (non-fasting) Collection Time: 02/19/21 12:24 PM Result Value Ref Range Glucose Lvl 89 65 - 199 mg/dL BUN 30 (H) 8 - 18 mg/dL Creatinine 2.28 (H) 0.70 - 1.20 mg/dL Sodium 139 135 - 145 mmol/L Potassium 4.1 3.5 - 5.0 mmol/L Chloride 99 98 - 107 mmol/L CO2 28 22 - 31 mmol/L Anion Gap 12 5 - 15 mmol/L Calcium 9.6 8.5 - 10.5 mg/dL Estimated GFR 21 (L) >=60 mL/min/1.73 m?? Hemogram Collection Time: 02/19/21 12:24 PM Result Value Ref Range WBC 8.4 4.0 - 9.5 x10(3)/mcL RBC 4.62 4.00 - 5.21 x10(6)/mcL Hemoglobin 13.7 11.7 - 15.5 g/dL Hematocrit 40.7 35.7 - 45.8 % MCV 88.1 82.6 - 94.4 fL MCH 29.7 27.1 - 32.0 pg MCHC 33.7 31.7 - 35.0 g/dL Platelets 381 (H) 145 - 357 x10(3)/mcL RDWSD 46.5 (H) 37.0 - 46.0 fL RDWCV 14.5 (H) 11.5 - 14.1 % MPV 10.1 7.6 - 12.9 fL nRBC % Auto 0.0 % nRBC Abs Auto 0.000 0.000 - 0.000 x10(3)/mcL Differential, Automated Collection Time: 02/19/21 12:24 PM Result Value Ref Range Neutrophils % 60.6 % Neutr Abs (ANC) 5.12 1.70 - 6.10 x10(3)/mcL Lymphocytes % 17.3 % Lymphocytes Abs 1.5 0.9 - 3.2 x10(3)/mcL Monocytes % 13.3 % Monocyte Abs 1.1 (H) 0.3 - 0.9 x10(3)/mcL Eosinophils % 7.0 % Eosinophils Abs 0.6 (H) 0.0 - 0.4 x10(3)/mcL Basophils % 1.4 % Basophils Abs 0.1 0.0 - 0.1 x10(3)/mcL Immature Gran % 0.40 % Blanca Gran Abs 0.03 0.00 - 0.04 x10(3)/mcL Protein/Creatinine Ratio, urine Collection Time: 02/19/21 12:33 PM Result Value Ref Range U Creatinine 44 mg/dL U Protein Ran 16 (H) 0 - 12 mg/dL Prot/Cre Ratio 0.4 ratio ASSESSMENT AND PLAN: Problem: Chronic Kidney Disease Estimated GFR (mL/min/1.73 m??) Date Value 02/19/2021 21 (L) 06/27/2020 21 (L) 05/01/2020 35 (L) CKD Stage 4 Potassium Date Value Ref Range Status 02/19/2021 4.1 3.5 - 5.0 mmol/L Final [...] Chemistry Laboratory if there are any questions. 05/01/2020 3.9 3.5 - 5.0 mmol/L Final Comment: Please note: Patients with WBC >100,000 may have falsely elevated Potassium levels. For accurate Potassium quantification in these patients send serum separator tube (gold top) for subsequent determinations. Contact the Clinical Chemistry Laboratory if there are any questions. CO2 (mmol/L) Date Value 02/19/2021 28 06/27/2020 30 05/01/2020 22 Does not tolerate sodium bicarbonate Uric Acid (mg/dL) Date Value 02/19/2021 7.6 (H) 06/27/2020 7.1 (H) 02/08/2020 6.0 not on allopurinol Standard Recommendations: Reduce rate of progression. Education for CKD stage- specific issues. RN Notes: MD/OPERATIONS MANAGER STATION A/P: Problem: Management of Anemia related to Chronic Kidney Disease (CKD) Hemoglobin (g/dL) Date Value 02/19/2021 13.7 Goal: 9.5-10.9 g/dl Ferritin (ng/mL) Date Value 05/24/2019 81 Goal: >100ng/ml Iron Saturation (%) Date Value 05/24/2019 16 (L) Goal: >20% LAKESHA: No IV Iron replacement therapy (Venofer), Last dose: Dec 2018??received 1 iron infusion - declines additional infusions RN Notes: Does not meet criteria for LAKESHA MD/OPERATIONS MANAGER STATION A/P: Problem: Hypertension BP: (117)/(67) Goal (if urine alb:cr ratio is <30mg/g): </= 140/90 Goal (if urine alb:cr ratio is >30mg/g): </= 130/80 Standard Recommendations: Sodium intake < 2 Gm per day. RN Notes: Your blood pressures have been good. We can look at reducing your hydralazine if you are interested. MD/OPERATIONS MANAGER STATION A/P: Problem: Proteinuria Prot/Cre Ratio (ratio) Date Value 02/19/2021 0.4 Goal: <0.2mg/mg RN Notes: None MD/OPERATIONS MANAGER STATION A/P: Problem: Bone and mineral metabolism 25-OH Vit D Total (ng/mL) Date Value 01/09/2019 52 07/19/2018 35 not on vitamin D PTH (pg/mL) Date Value 02/19/2021 83 (H) 06/27/2020 88 (H) 02/08/2020 54 not on calcitriol Goal: Stage 3: 35-70 pg/ml Stage 4: 70-110 pg/ml Stage 5: 150-300 pg/ml Phosphorus (mg/dL) Date Value 02/19/2021 3.6 06/27/2020 3.9 05/01/2020 3.6 Not on binder Goal: 2.7-4.6mg/dl Calcium (mg/dL) Date Value 02/19/2021 9.6 06/27/2020 9.6 05/01/2020 7.7 (L) Not on calcium supplement Goal: 8.5-10.5mg/dl RN Notes: None MD/OPERATIONS MANAGER STATION A/P: Problem: Nutrition Albumin Date Value 02/19/2021 4.4 g/dL 06/27/2020 4.6 gm/dL 04/24/2020 3.9 gm/dL Goal: >/= 4.0 gm/dl Body mass index is 20.02 kg/m??. Goal: 20-25 kg/m2 RN Notes: None MD/OPERATIONS MANAGER STATION A/P: Problem: Dyslipidemia No results found for: LDLCHOL Goal: <100 mg/dl No results found for: TRIG Goal: <150 mg/dl On atorvastatin 20 mg nightly RN Notes: None MD/OPERATIONS MANAGER STATION A/P: Time Attestation: 25minutes spent on encounter ; > 50% in direct counseling Return to CKD clinic: 6 months documented in this encounter Plan of Treatment [...] stage I through stage IV, or unspecified Secondary hyperparathyroidism Secondary hyperparathyroidism (of renal origin) documented in this encounter Care Teams Composition Stone Applicator Relationship Specialty Start Date End Date Sanjuanita Lee MD PCP - General 03/05/13 12/23/[address] [place] [address] documented as of this encounter
--- OUTSIDE RECORDS SUMMARY | 2022-02-22 23:28 | XMS_ITS | Encounter Summary ---
:1950 Author Organization [place] [address] Care Team Providers Name Role Phone Sanjuanita Lee MD Primary Care Provider Encounter Details Date Type Department Care Team Description 08/01/2021 Laboratory Appointment Lab 3L [facility] aortic [facility] aneurysm (AAA) [place] [id number] Social History Tobacco Use Types Packs/Day Years [...] Procedure Name Priority Date/Time Associated Diagnosis Comme [facility] HC VENIPUNCTURE STAT 08/01/2021 11:17 AM Abdominal aortic R esults for this EDT aneurysm (AAA) procedure are in without rupture the results section. documented in this encounter Results (ABNORMAL) Creatinine (08/01/2021 11:17 AM EDT) [facility] Time Signature Creatinine 2.76 (H) 0.70 - ZAKIA ZHANG 1.20 mg/dL [facility] Estimated GFR 16 (L) >=60 ZAKIA ZHANG mL/min/1.7 [facility] 3 ?? [facility] Comment: This patient? s estimated glomerular [...] Organization Address City/State/ZIP Code Phon e Number [facility] [place] [address] documented in this encounter Visit Diagnoses Diagnosis Abdominal aortic aneurysm (AAA) without rupture documented in this encounter Care Teams Candy Polisher Relationship Specialty Start Date End Date Sanjuanita Lee MD PCP - General 03/05/13 12/23/[address] [place] [address] documented as of this encounter
--- OUTSIDE RECORDS SUMMARY | 2022-02-22 23:28 | XMS_ITS | Encounter Summary ---
:1950 Author Organization [facility] [place] [address] Care Team Providers Name Role Phone Sanjuanita Lee MD Primary Care Provider Reason for Visit Auth/Cert Specialty Diagnoses / Procedures Referred By Contact Refer red To Contact Diagnoses AAA W/O RUPTURE Procedures ARTERIOGRAMS Referral ID Status Reason Start Date Expiration Date Visits Requ ested Visits Authorized [id number] 1 1 Encounter Details Date Type Department Care Team Description 08/01/2021 Surgery [facility] Isac Edmond MD ARTERIOGRAMS [facility] [place] [address] VASCULAR SURGERY [phone] [place], [place] [address] (Wo rk) Social History Tobacco [...] on filedocumented in this encounter Care Teams Survey Methodologist Relationship Specialty Start Date End Date Sanjuanita Lee MD PCP - General 03/05/13 12/23/[address] [place] [address] documented as of this encounter
--- OUTSIDE RECORDS SUMMARY | 2022-02-22 23:28 | XMS_ITS | Encounter Summary ---
:1950 Author Organization [facility] [place] [address] Care Team Providers Name Role Phone Sanjuanita Lee MD Primary Care Provider Reason for Referral Diagnostic Test (Routine) - Closed Specialty Diagnoses / Procedures Referred By Contact Refer red To Contact Radiology Diagnoses Abdominal aortic aneurysm (AAA) without rupture Isac Moody MD [facility] Rad Ct Scan Procedures CT Abdomen & Pelvis wo Contrast [facility] [place] [address] [place] [address] Referral ID Status Reason Start Date Expiration Date Visits V isits Requested Authorized [id number] Closed Specialty 05/25/2021 07/23/2021 1 1 Service Requested Encounter Details Date Type Department Care Team Description 04/25/2021 Orders Only Vascular Surgery at [facility] Abdo minal aortic [facility] RN aneurysm (AAA) without [facility] [place] [address] Social History Tobacco Use Types Packs/Day [...] ed documented as of this encounter Results CT Abdomen & Pelvis wo Contrast (06/04/2021 2:35 PM EST) Anatomical Region Laterality Modality Abdomen, Pelvis Computed Tomography Specimen (Source) Anatomical Location Collection Method / Collectio n Time Received Time / Laterality Volume Impressions 06/04/2021 3:00 PM EST Enlarging fusiform abdominal aortic aneurysm. Maximum caliber 5.6 cm. No periaortic nor retroperitoneal hemato ma. Thank you for letting us participate in the care of this patient. ??If you are a health care provider and have any questi ons regarding this report, please contact the number below. ??For patients who have questions please contact the health health and social care teacher that requested your imaging first. ? Narrative 06/04/2021 3:00 PM EST EXAMINATION: CT ABDOMEN AND PELVIS WO CONTRAST CLINICAL HISTORY: AAA, monitoring TECHNIQUE: Helical CT of the abdomen and pelvis was performed without intravenous contrast. COMPARISON: October 17, 2019 and March 282019 FINDINGS: The absence of intravenous contrast limi ts the evaluation of solid viscera and vasculature. Lower chest: No mass. No pleural effusio n. Liver: Normal contour Bile ducts: Nondilated. Gallbladder: Absent Pancreas: Normal contour without ductal dilation Spleen: Normal contour Adrenals: Normal contours Kidneys/ureters: No collecting system di lation Urinary Bladder: Incompletely distended. No calculi. Vasculature: Thoracoabdominal aortic ane urysm. Caliber at the diaphragmatic hiatus 3.8 cm, stable. Enlarging juxta r enal segment currently 5.6 cm maximum diameter compared to 4.8 cm in September 2019 . No periaortic hematoma. This spares the bifurcation. Dense calcification at the common iliac arteries bilaterally. Lymph nodes: No enlarged lymph nodes. Bowel: Moderate fecal burden. No mural t hickening. Stomach is distended with ingested material. No pneumatosis. Peritoneum and mesentery: No ascites, fr ee air, or loculated fluid collection. Abdominal wall: Normal. Reproductive organs: Uterus absent Osseous structures: Degenerative changes . No suspicious lesion. Procedure Note Amy Prince MD - 06/04/2021 EXAMINATION: CT ABDOMEN AND PELVIS WO CO NTRAST CLINICAL HISTORY: AAA, monitoring TECHNIQUE: Helical CT of the abdomen and pelvis was performed without intravenous contrast. COMPARISON: October 17, 2019 and March 282019 FINDINGS: The absence of intravenous contrast limi ts the evaluation of solid viscera and vasculature. Lower chest: No mass. No pleural effusio n. Liver: Normal contour Bile ducts: Nondilated. Gallbladder: Absent Pancreas: Normal contour without ductal dilation Spleen: Normal contour Adrenals: Normal contours Kidneys/ureters: No collecting system di lation Urinary Bladder: Incompletely distended. No calculi. Vasculature: Thoracoabdominal aortic ane urysm. Caliber at the diaphragmatic hiatus 3.8 cm, stable. Enlarging juxta r enal segment currently 5.6 cm maximum diameter compared to 4.8 cm in September 2019 . No periaortic hematoma. This spares the bifurcation. Dense calcification at the common iliac arteries bilaterally. Lymph nodes: No enlarged lymph nodes. Bowel: Moderate fecal burden. No mural t hickening. Stomach is distended with ingested material. No pneumatosis. Peritoneum and mesentery: No ascites, fr ee air, or loculated fluid collection. Abdominal wall: Normal. Reproductive organs: Uterus absent Osseous structures: Degenerative changes . No suspicious lesion. IMPRESSION Enlarging fusiform abdominal aortic aneu rysm. Maximum caliber 5.6 cm. No periaortic nor retroperitoneal hemato ma. Thank you for letting us participate in the care of this patient. If you are a health care provider and have any questi ons regarding this report, please contact the number below. For patients w ho have questions please contact the health health and social care teacher that requested your imaging first. Electronically signed by: Amy Prince MD , [facility] ([phone]), at 06/04/2021 3:00 PM Isac Moody MD IMG CT ORDERABLES documented in this encounter Visit Diagnoses Diagnosis Abdominal aortic aneurysm (AAA) without rupture Abdominal aortic aneurysm (AAA) without rupture documented in this encounter Care Teams Deputy Court Clerk Relationship Specialty Start Date End Date Sanjuanita Lee MD PCP - General 03/05/13 12/23/[address] [place] [address] documented as of this encounter
--- OUTSIDE RECORDS SUMMARY | 2022-02-22 23:28 | XMS_ITS | Encounter Summary ---
:1950 Author Organization [facility] [place] [address] Care Team Providers Name Role Phone Sanjuanita Lee MD Primary Care Provider Reason for Referral Diagnostic Test (Routine) - Closed Specialty Diagnoses / Procedures Referred By Contact Refer red To Contact Radiology Diagnoses Abdominal aortic aneurysm (AAA) without rupture Isac Moody MD [facility] Rad Ct Scan Procedures CT Abdomen & Pelvis wo Contrast [facility] [place] [address] [place] [address] Referral ID Status Reason Start Date Expiration Date Visits V isits Requested Authorized [id number] Closed Specialty 05/25/2021 07/23/2021 1 1 Service Requested Reason for Visit Diagnostic Test (Routine) - Closed Specialty Diagnoses / Procedures Referred By Contact Refer red To Contact Radiology Diagnoses Abdominal aortic aneurysm (AAA) without rupture Isac Moody MD [facility] Rad Ct Scan Procedures CT Abdomen & Pelvis wo Contrast [facility] [place] [address] [place] [address] Referral ID Status Reason Start Date Expiration Date Visits V isits Requested Authorized [id number] Closed Specialty 05/25/2021 07/23/2021 1 1 Service Requested Encounter Details Date Type Department Care Team Description 06/04/[address] Scan at [place] Isac Moody Abdominal aortic [facility] MD [facility] aneurysm (AAA) Drive [facility] without rupture [place] [address] VASCULAR SURGERY [phone] [place] [address] Social History Tobacco Use Types Packs/Day Years [...] Priority Date/Time Associated Diagnosis Comme nts CT ABDOMEN AND Routine 06/04/2021 2:35 PM Abdominal aortic Res ults for this PELVIS WO CONTRAST EST aneurysm (AAA) procedu re are in without rupture the results section. documented in this encounter Results CT Abdomen & Pelvis [...] have questions please contact the health career center advisor that requested your imaging first. ? Narrative [...] have questions please contact the health career center advisor that requested your imaging first. Isac Moody MD IMG CT ORDERABLES documented in this encounter Visit Diagnoses Diagnosis Abdominal aortic aneurysm (AAA) without rupture documented in this encounter Care Teams System Controller Relationship Specialty Start Date End Date Sanjuanita Lee MD PCP - General 03/05/13 12/23/[address] [place] [address] documented as of this encounter
--- OUTSIDE RECORDS SUMMARY | 2022-02-22 23:28 | XMS_ITS | Encounter Summary ---
:1950 Author Organization [facility] [place] [address] Care Team Providers Name Role Phone Sanjuanita eLe MD Primary Care Provider Encounter Details Date Type Department Care Team Description 07/04/2021 Laboratory Appointment Lab 3L [facility] Abdominal aortic aneurysm (AAA) without rupture; [facility] Stage 5 [place] [id number] Social History Tobacco Use Types Packs/Day Years [...] Procedure Name Priority Date/Time Associated Diagnosis Comme [facility] HC VENIPUNCTURE STAT 07/04/2021 8:24 AM Abdominal aortic Re sults for this EST aneurysm (AAA) procedure are in without rupture the results Stage 5 chronic section. kidney disease documented in this encounter Results (ABNORMAL) Creatinine (07/04/2021 8:24 AM EST) [facility] Time Signature Creatinine 2.03 (H) 0.70 - ZAKAI ZHANG 1.20 mg/dL [facility] Estimated GFR 24 (L) >=60 ZAKIA ZHANG mL/min/1.7 [facility] 3 ?? [facility] Comment: This patient? s [...] Organization Address City/State/ZIP Code Phon e Number [facility] [address] documented in this encounter Visit Diagnoses Diagnosis Abdominal aortic aneurysm (AAA) without rupture Stage 5 chronic kidney disease documented in this encounter Care Teams Radiation / Chemistry Technician Relationship Specialty Start Date End Date Sanjuanita Lee MD PCP - General 03/05/13 12/23/[address] [place] [address] documented as of this encounter
--- OUTSIDE RECORDS SUMMARY | 2022-02-22 23:28 | XMS_ITS | Encounter Summary ---
:1950 Author Organization [facility] [address] Care Team Providers Name Role Phone Sanjuanita Lee MD Primary Care Provider Encounter Details Date Type Department Care Team Description 02/19/2021 Laboratory Appointment Lab 3L [facility] CKD ([facility] kidney [facility] disease) stage 4, GFR [facility] 15-29 ml/ [place] [id number] Social History Tobacco Use Types Packs/Day Years [...] Date/Time Associated Comments Diagnosis HC PROTEIN, Routine 02/19/2021 12:33 CKD (chronic kidney Resu lts for this QUANTITATIVE, URINE PM EDT disease) stage 4, pro cedure are in GFR 15-29 ml/min the results section. HC PARATHYROID Routine 02/19/2021 12:24 CKD (chronic kidney Re sults for this HORMONE(PTH INTACT PM EDT disease) stage 4, proc edure are in GFR 15-29 ml/min the results section. HEMOGRAM Routine 02/19/2021 12:24 CKD (chronic kidney Resu lts for this PM EDT disease) stage 4, procedure are in GFR 15-29 ml/min the results section. DIFFERENTIAL, Routine 02/19/2021 12:24 CKD (chronic kidney Res ults for this AUTOMATED PM EDT disease) stage 4, procedure are in GFR 15-29 ml/min the results section. HC VITAMIN D TOTAL-25 Routine 02/19/2021 12:24 CKD (chronic ki dney Results for this HYDROXY PM EDT disease) stage 4, procedure are in GFR 15-29 ml/min the results section. HC CBC,PLT & AUTO Routine 02/19/2021 12:24 CKD (chronic kidney DIFF PM EDT disease) stage 4, GFR 15-29 ml/min HC URIC ACID, SERUM Routine 02/19/2021 12:24 CKD (chronic kidn ey Results for this PM EDT disease) stage 4, procedure are in GFR 15-29 ml/min the results section. HC PHOSPHORUS, SERUM Routine 02/19/2021 12:24 CKD (chronic kid liza Results for this PM EDT disease) stage 4, procedure are in GFR 15-29 ml/min the results section. HC ALBUMIN, SERUM Routine 02/19/2021 12:24 CKD (chronic kidney Results for this PM EDT disease) stage 4, procedure are in GFR 15-29 ml/min the results section. BASIC METABOLIC PANEL Routine 02/19/2021 12:24 CKD (chronic ki dney Results for this (NON-FASTING) PM EDT disease) stage 4, procedure are in GFR 15-29 ml/min the results section. documented in this encounter Results (ABNORMAL) Protein/Creatinine Ratio, urine (02/19/2021 12:33 PM EDT) P athologist Signature U Creatinine 44 mg/dL [facility] U Protein Ran 16 (H) 0 - 12 [facility] mg/dL [facility] Prot/Cre Ratio 0.4 ratio [facility] Specimen Anatomical Collection Method Collection Time Receive d Time (Source) Location / / Volume Laterality Urine 02/19/2021 12:33 02/19/2021 PM EDT 12:39 PM EDT Resulting Agency Comment Spec In Lab Tyron Kemp MD URINE ORDERABLES Performing Organization Address City/State/[place] [address] (ABNORMAL) Differential, Automated (02/19/2021 12:24 PM EDT) [facility] gist Method Time Signature Neutrophils % 60.6 % [facility] Neutr Abs (ANC) 5.12 1.70 - [facility] 6.10 [facility] x10(3)/[facility] LABORATORY Lymphocytes % 17.3 % [facility] Lymphocytes Abs 1.5 0.9 - 3.2 [facility] x10(3)/[facility] LABORATORY Monocytes % 13.3 % [facility] Monocyte Abs 1.1 (H) 0.3 - 0.9 [facility] x10(3)/[facility] LABORATORY Eosinophils % 7.0 % [facility] Eosinophils Abs 0.6 (H) 0.0 - 0.4 [facility] x10(3)/[facility] LABORATORY Basophils % 1.4 % [facility] Basophils Abs 0.1 0.0 - 0.1 [facility] x10(3)/[facility] LABORATORY Immature Gran % 0.40 % [facility] Comment: Immature granulocytes(IG's)percentage an d absolute count will include metamyelocytes, myelocytes, and promyelo cytes. Blood smears from CBCs yielding IG's will be scanned manually for concor dance. If this scan disagrees with the automated IG or if promyelocytes are not ed, a manual differential will be performed. Blanca Gran Abs 0.03 0.00 - 0.04 x10(3)/[facility] Specimen Anatomical Collection Method Collection Time Receive d Time (Source) Location / / Volume Laterality Blood 02/19/2021 12:24 02/19/2021 PM EDT 12:35 PM EDT Resulting Agency Comment Spec In Lab Tyron Kemp MD HEMATOLOGY ORDERABLES Performing Organization Address City/State/[place] [address] (ABNORMAL) Hemogram (02/19/2021 12:24 PM EDT) Analysis Performed At Patho logist Time Signature WBC 8.4 4.0 - 9.5 [facility] x10(3)/[facility] LABORATORY RBC 4.62 4.00 - [facility] 5.21 [facility] x10(6)/[facility] LAB[facility]ATORY Hemoglobin 13.7 11.7 - [facility] 15.5 g/dL [facility] Hematocrit 40.7 35.7 - [facility] 45.8 % [facility] MCV 88.1 82.6 - [facility] 94[facility]4 [facility] MCH 29.7 27.1 - [place] 32.[address] [facility]ORY MCHC 33.7 31.7 - [facility] 35.0 g/dL [facility] Platelets 381 (H) 145 - 357 [facility] x10(3)/[facility] LABORATORY RDWSD 46.5 (H) 37.0 - [facility] 46.0 [facility] LABORATORY RDWCV 14.5 (H) 11.5 - [facility] 14.1 % [facility]ORY MPV 10.1 7.6 - 12.9 [facility] LABORATORY nRBC % Auto 0.0 % [facility] nRBC Abs Auto 0.000 0.000 - [facility] 0.000 [facility] x10(3)/[facility] LABORATORY Specimen Anatomical Collection Method Collection Time Receive d Time (Source) Location / / Volume Laterality Blood 02/19/2021 12:24 02/19/2021 PM EDT 12:35 PM EDT Resulting Agency Comment Spec In Lab Tyron Kemp MD HEMATOLOGY ORDERABLES Performing Organization Address City/State/[place] [address] (ABNORMAL) Basic Metabolic Panel (non-fasting) (02/19/2021 12:24 PM EDT) P athologist Signature Glucose Lvl 89 65 - 199 [facility] mg/dL [facility] Comment: Diabetes: >=200 mg/dL plus symp toms BUN 30 (H) 8 - 18 mg/dL [facility] Creatinine 2.28 (H) 0.70 - 1.20 mg/dL [facility] Sodium 139 135 - 145 mmol/L [facility] Potassium 4.1 3.5 - 5.0 mmol/L [facility] Comment: Please note: ??Patients with WBC >100,00 0 may have falsely elevated Potassium levels. ??For accurate Potassium quantif ication in these patients send serum separator tube (gold top) for subsequent determinations. ??Contact the Clinical Chemistry Laboratory if there are any qu estions. Chloride 99 98 - 107 mmol/L [facility] CO2 28 22 - 31 mmol/L [facility] Anion Gap 12 5 - 15 mmol/L [facility] Calcium 9.6 8.5 - 10.5 mg/dL [facility] Estimated GFR 21 (L) >=60 mL/min/1.73 m?? [facility] Comment: This patient? s estimated glomerular filtration rate (eGFR) is between 21 mL/min/1.73 m2 (patients with less muscl e mass) and 24 mL/min/1.73 m2 (patients with more muscle mass) [...] (Source) Location / / Volume Laterality Blood 02/19/2021 12:24 02/19/2021 PM EDT 12:36 PM EDT Resulting Agency Comment Spec In Lab Tyron Kemp MD CHEMISTRY ORDERABLES Performing Organization Address City/State/[place] [address] Phosphorus (02/19/2021 12:24 PM EDT) P athologist Signature Phosphorus 3.6 2.5 - 4.5 [place] mg/dL [facility] Specimen Anatomical Collection Method Collection Time Receive d Time (Source) Location / / Volume Laterality Blood 02/19/2021 12:24 02/19/2021 PM EDT 12:36 PM EDT Resulting Agency Comment Spec In Lab Tyron Kemp MD CHEMISTRY ORDERABLES Performing Organization Address City/[facility]/[place] [address] Albumin Level (02/19/2021 12:24 PM EDT) P athologist Signature Albumin 4.4 3.2 - 5.2 [place] g/dL [facility] Specimen Anatomical Collection Method Collection Time Receive d Time (Source) Location / / Volume Laterality Blood 02/19/2021 12:24 02/19/2021 PM EDT 12:36 PM EDT Resulting Agency Comment Spec In Lab Tyron Kemp MD CHEMISTRY ORDERABLES Performing Organization Address City/[facility]/[place] [address] (ABNORMAL) Uric acid (02/19/2021 12:24 PM EDT) P athologist Signature Uric Acid 7.6 (H) 2.5 - 6.5 [place] mg/dL [facility] Specimen Anatomical Collection Method Collection Time Receive d Time (Source) Location / / Volume Laterality Blood 02/19/2021 12:24 02/19/2021 PM EDT 12:36 PM EDT Resulting Agency Comment Spec In Lab Tyron Kemp MD CHEMISTRY ORDERABLES Performing Organization Address City/State/[place] [address] (ABNORMAL) PTH (02/19/2021 12:24 PM EDT) P athologist Signature PTH 83 (H) 15 - 65 [facility] pg/mL [facility] Specimen Anatomical Collection Method Collection Time Receive d Time (Source) Location / / Volume Laterality Blood 02/19/2021 12:24 02/19/2021 PM EDT 12:36 PM EDT Resulting Agency Comment Spec In Lab Tyron Kemp MD CHEMISTRY ORDERABLES Performing Organization Address City/State/ZIP Code Phon e Number [address] Vitamin D, 25-Hydroxy (02/19/2021 12:24 PM EDT) Patholo gist Method Time Signature 25-OH Vit D 46 21 - 100 [facility] Total ng/mL [facility] 25-OH Vit D Sufficient [facility] LABORATORY Specimen Anatomical Collection Method Collection Time Receive d Time (Source) Location / / Volume Laterality Blood 02/19/2021 12:24 02/19/2021 PM EDT 12:36 PM EDT Resulting Agency Comment Spec In Lab Tyron Kemp MD CHEMISTRY ORDERABLES Performing Organization Address City/State/ZIP Code Phon e Number [address] documented in this encounter Visit Diagnoses Diagnosis CKD (chronic kidney disease) stage 4, GF R 15-29 ml/min Chronic kidney disease, Stage IV (severe ) documented in this encounter Care Teams Authorization Coordinator Relationship Specialty Start Date End Date Sanjuanita Lee MD PCP - General 03/05/13 12/23/[address] [place] [address] documented as of this encounter
--- OUTSIDE RECORDS SUMMARY | 2022-02-22 23:28 | XMS_ITS | Encounter Summary ---
:1950 Author Organization [facility] [place] [address] Care Team Providers Name Role Phone Sanjuanita [...] Expiration Date Visits Requ ested Visits Authorized [id number] 1 1 Encounter Details Date Type Department Care Team Description 10/01/2021 Anesthesia Event Main Operating Room Reid Gomez MD [facility] [place] [address] [facility] Angel Luque MD [facility] [place] [address] [facility] [place] [phone] Anesthesia Record Procedure Summary Procedure Name Responsible Anesthesia Start Anesthesia Stop Anesthesiologist Time Time @EVG REPAIR VISCERAL Reid Black MD 10/01/21 0821 10/01 1217 & INFRARENAL ABDML AORTA,FENESTRATED,ON E ARTERY,INC. S&I (WRVU 77.3) (N/A Abdomen) Events Date Time Event Comment 10/01/2021 0720 0821 AN Verify 0821 Start 0821 An Start Data 0912 An Induction 0912 An Intubation 0935 Anesthesia Ready 1152 Extubation/LMA Out 1203 an stop data 1213 Recovery or ICU Handoff Patient care was transferred to the destination unit staff after review of the patient's medica l history, current anesthetic/surgi lucio status and plan, according to the Provider Handoff Checklist. 1217 Stop Name Total fentaNYL 50 mcg IV Lidocaine 60 mg Propofol 150 mg Rocuronium 50 mg PHENYLephrine 320 mcg ePHEDrine 40 mg Heparin 8,000 Units Protamine 50 mg Dexamethasone 4 mg Ondansetron 4 mg PHENYLephrine INF 3,640 mcg ceFAZolin 2 g Esmolol 10 mg Lactated Ringers 1,300 mL Agents Name O2 Air N2O Sevoflurane (et) Blood No blood administrations on file. Lines, Drains, and Airways Type Details Placement Removal Incision 10/01/21; 0942; Right, 10/01/21 0942 by anterior; groin; Aria Cisse RN non-laparascopic puncture Incision 10/01/21; 0942; Left, 10/01/21 0942 by anterior; groin; Aria Cisse RN non-laparascopic puncture Drain/Device Site bernadette christiansen; Sterile prep 10/01/21 1023 by 10/02 0854 by and Radha holt Matth ew S, precautions, Sterile RN technique; Lidocaine 1%; Sitting; L3-4; Midline; 14 G Tuohy; Awake, Guidewire Used; 1.5 mm x 80 cm ([employer] Hermetic, closed tip; Chlorhexidine Tegaderm; 10/02/21; 0854 Incision 09/01/18; 1535; groin; 09/01/18 1535 by 10/01/21 1039 by other (see comments); Whitney Ornelas RN Chapman, Emma M, RN percutaneous puncture; LDA not present upon assessment; 10/01/21; 1039 Incision 09/07/18; 1551; abdomen; 09/07/18 1551 by 1039 by low transverse; LDA not Annmarie Patrick RN C hapman, Aria M, RN present upon assessment; 10/01/21; 1039 Incision 04/27/20; 0049; abdomen; 04/27/20 0049 by 1039 by LDA not present upon Brent Livingston RN Chap man, Emma M byproducts maker; 10/01/21; 1039 Incision 08/01/21; 1323; Right; 08/01/21 1323 by 10/01/21 1039 by groin; non-laparascopic Rolo Chairez RN Chap man, Emma M RN puncture; Angiogram w/ Dr. Moody and Arthur; LDA not present upon assessment; 10/01/21; 1039 PIV 10/01/21; 0735; metacarpal 10/01/21 0735 by 09/25 07/16 1220 by vein (top of hand), right; Nina Jones R N Meli, Jennifer, RN [id number] catheter system; Anatomical Landmarks; US Not Used; 20 gauge; Pedro Jones RN; distraction, tolerated well, appears comfortable; no longer indicated; 10/07/21; 1220 Urethral Catheter 10/01/21; 0900; Physician 10/01/21 0900 by 12/16 1745 by order; indwelling double Aria Cisse RN Del ura, Matthew S, lumen catheter; benigno RN silicone coated; 14; inserted at this facility (Inserted by Bia Palafox RN); 1; 5; 10; drainage bag to dependent drainage; 10/02/21; 1745 ETT Mask Ventilation: Easy 10/01/21 0917 by 10/01/21 1314 by (1); ETT Type: Cuffed, Angel Luque MD Guth ikonda, Kiran, Oral; ETT Size: 7 mm; Mac Blade: 3; Notes: Asleep, Pre-O2, Stylette; Attempts: 1; Laryngoscopy Grade: 1; ETT Placement Verified By: Auscultation, Capnometry, Visual; Secured at Teeth: 21 cm; Inserted by: bernadette christiansen PIV 10/01/21; 942; dorsal 10/01/21 0943 by 10/03/21 0900 by arch vein (top of hand), Angel Luque MD Mu muli, Miriam D, left; [id number] RN catheter system; 18 gauge; 10/03/21; 0900 Arterial Line 10/01/21; 0943; radial 10/01/21 0943 by 10/02/21 1230 by artery, right; 20 gauge; Angel Luque MD De lura, Matthew S, Ultrasound Guidance, RN Guidewire; continuous blood pressure monitoring; bernadette christiansen; Sterile Prep, Sterile Gloves; 10/02/21; 1230 Drain/Device Site 10/01/21; 0953; Bernadette 10/01/21 0953 by 0804 by CA-2; Sterile [...] Tegaderm; 10/07/21 (not present on assessment); 0804 documented in this encounter Social History Tobacco [...] encounter OR Notes Anesthesia Postprocedure Evaluation - Angel Luque MD - 10/01/2021 2:29 PM EDT Department of Anesthesiology Post-procedure Note Patient: Charlene Harmon Procedure Summary Date: 10/01/21 Room / Location: [facility] OR [address] [place] [address] MAIN OR Anesthesia Start: 820 Anesthesia Stop: 121 Procedure: @EVG REPAIR VISCERAL & INFRARENAL ABDML AORTA,FENESTRATED,ONE ARTERY,INC. S&I (WRVU 77.3) (N/A Abdomen) Diagnosis: Pre-op testing Abdominal aortic aneurysm (AAA) without rupture (Enlarging Fusiform AAA) Surgeons: Regan Trevizo MD Responsible Provider: Reid Black MD Anesthesia Type: general ASA Status: 3 All Anesthesia Providers: Anesthesiologist: Reid Black MD Care Manager: Angel Luque MD Vitals Value Taken Time BP 155/72 10/01/21 1350 Temp 35.5 ??C (95.9 ??F) 10/01/21 1400 Pulse 70 10/01/21 1429 Resp 16 10/01/21 1429 SpO2 99 % 10/01/21 1429 Pain Level 8 10/01/21 1400 Vitals shown include unvalidated device data. Patient Location: ICU Level of Consciousness: Awake and Alert Pain Management: Satisfactory Analgesia PONV: None Cardiovascular Status: Hemodynamically Stable Respiratory Status: Stable Respiratory Status Postoperative Fluid Status: Intravascular EUvolemia Possible Anesthetic Complications: NONE apparent at time of evaluation Final Primary Anesthesia Type: General (The anesthetic type performed was the same as planned.) Comments: Anesthesia Preprocedure Evaluation - Reid Black MD - 09/30/2021 5:32 PM EDT Pre-Anesthesia Evaluation for: Charlene Harmon a 70 y.o. female. Procedure(s): @EVG REPAIR VISCERAL & INFRARENAL ABDML AORTA,FENESTRATED,ONE ARTERY,INC. S&I (WRVU 77.3) Patient Active Problem List Diagnosis Date Noted [...] GFR less than 15 ml/min 01/04/2019 ??? Severe protein-calorie malnutrition 10/04/2018 ??? Hypertensive urgency 08/29/2018 ??? Renal artery stenosis 03/17/2018 ??? Abdominal aortic aneurysm (AAA) without rupture 03/01/2018 ??? Viral hepatitis B acute 03/04/2013 Past Medical History: Diagnosis Date ??? AAA (abdominal aortic aneurysm) [id number] angiogram; 3.2 cm infrarenal ??? Constipation ??? [...] (WRVU 6.99) performedby Regan Chen MD at [facility] MAIN OR ??? PRO EXPLORATORY OF ABDOMEN N/A 04/26/2020 @EXPLORATORY LAPAROTOMY, WITH/WITHOUT BIOPSY(S) (WRVU 12.54) performed by Edwin Hwang MD at [facility] MAIN OR ??? PRO UPPER GI ENDOSCOPY, DIAGNOSTIC 01/20/2014 EGD, UPPER GI ENDOSCOPY performed by Corby Cano MD at [facility] ENDOSCOPY ??? PRO UPPER GI ENDOSCOPY, DIAGNOSTIC N/A 07/28/2017 EGD, UPPER GI ENDOSCOPY performed by Snow Liao MD at [facility] ENDOSCOPY ??? PRO VEIN BYPASS GRAFT, AORTOILIOFEMORAL N/A 09/07/2018 @BYPASS GRAFT, AORTOILIAC W\ VEIN CONDUIT (WRVU 41.88) performed by Isac Moody MD at [facility] MAIN OR ??? VS ARTERIOGRAM RENAL VASCULAR SURGERY 08/01/2021 VS Arteriogram Renal Vascular Surgery 08/01/2021 Isac Moody MD [facility] INTERVENTIONL RAD Social History Tobacco Use ??? Smoking status: Former Smoker Packs/day: 0.50 Years: 45.00 Pack years: 22.50 Types: Cigarettes Quit date: 2007 Years since quittin.4 ??? Smokeless tobacco: Never Used ??? Tobacco comment: smoked for ~45 years up to 1 ppd at max, quit ~2000 Substance Use Topics ??? Alcohol use: Yes Comment: a few glasses of wine, rarely 4 times a year Social History Substance and Sexual Activity Drug Use No No Known Allergies Medications: MAR and/or home medications have been reviewed. Physical Exam: Preprocedure Vitals Current as of 09/30/21 1732 No BP, pulse, respiration, SpO2, or temperature recorded. Height: Weight: BMI: IBW: Airway Assessment: Mallampati: II TM distance: >3 FB Neck ROM: full Cardiovascular Assessment: Rate: normal Pulmonary Assessment: unlabored breathing Dental Assessment: - normal exam Misc Assessment: Last Filed Perioperative Cognitive Screening None Anesthesia Plan: ASA 3 general, with a(n) intravenous induction 70F who presents for EVG repair of infrarenal AAA. PMH: HTN, HLD, PVD, renal artery stenosis (s/p right renal artery bypass 2018), CKD G1v mac 3, easy MV TTE 06/16: SUMMARY: ?? 1. The left ventricular chamber size [...] there has been recovery of LV Function Plan: GAETT, arterial line, lumbar drain Angel Luque MD Anesthesiology PGY3 Region - [facility] Informed Consent: Anesthesia Screening documented in this encounter Miscellaneous Notes Addendum Note - Reid Black MD - 10/03/2021 2:40 PM EDT Addendum created 10/03/21 1440 by Reid Black MD LDA properties accepted documented in this encounter Plan of Treatment Scheduled Procedures Name Priority Associated Diagnoses Date/Time EGD, UPPER GI ENDOSCOPY Gastroesophageal reflux disease, esophagitis presence not specifi ed documented as of this encounter Visit Diagnoses Not on filedocumented in this encounter Administered Medications Inactive Administered Medications - up to 3 most recent administrations Medication Order MAR Action Action Date Dose Rate Site ceFAZolin (Ancef) 1 g in dextrose 5% Given 10/01/2021 9:35 AM ED T 2 g 50 mL infusion Intravenous, PRN, Starting on Thu10/01/21 at 0935, Until Thu10/01/21 at 1428, Administer over 30 Minutes, Anesthesia Intra-op dexAMETHasone (Decadron) injection Given 10/01/2021 9:50 AM EDT 4 mg Intravenous, PRN, Starting on Thu10/01/21 at 0950, Until Thu10/01/21 at 1428, Anesthesia Intra-op, Routine ePHEDrine sulfate (5 mg/mL) multi-dose Given 10/01/2021 10:05 AM EDT 10 mg injection Intravenous, PRN, Starting on Thu10/01/21 at 1005, Until Thu10/01/21 at 1428, Anesthesia Intra-op, Routine Given 10/01/2021 9:54 AM EDT 10 mg Given 10/01/2021 9:43 AM EDT 10 mg esmoloL (Brevibloc) (10 mg/mL) injection Given 10/01/2021 9:12 AM EDT 10 mg Intravenous, PRN, Starting on Thu10/01/21 at 0912, Until Thu10/01/21 at 1428, Anesthesia Intra-op, Routine fentaNYL (pf) (50 mcg/mL) multi-dose Given 10/01/2021 11:17 AM E DT 50 mcg injection Intravenous, PRN, Starting on Thu10/01/21 at 1117, Until Thu10/01/21 at 1428, Anesthesia Intra-op, Routine heparin (porcine) (1,000 units/mL) Given 10/01/2021 9:58 AM EDT 8,000 Units injection Intravenous, PRN, Starting on Thu10/01/21 at 0958, Until Thu10/01/21 at 1428, Anesthesia Intra-op, Routine lactated ringers infusion New Bag 10/01/2021 8:21 AM EDT Intravenous, CONTINUOUS PRN, Starting on Thu10/01/21 at 0821, Until Thu10/01/21 at 1429, Anesthesia Intra-op lidocaine (pf) (Xylocaine) (20 mg/mL) 2% Given 10/01/2021 9:12 A M EDT 60 mg injection syringe Intravenous, PRN, Starting on Thu10/01/21 at 0912, Until Thu10/01/21 at 1428, Anesthesia Intra-op, Routine ondansetron (pf) (Zofran) (2 mg/mL) inje ction Given 10/01/2021 11:20 AM EDT 4 mg Intravenous, PRN, Starting on Thu10/01/21 at 1120, Until Thu10/01/21 at 1428, Anesthesia Intra-op, Routine PHENYLephrine (Oniel-Synephrine) Restarted 10/01/2021 11:00 AM 30 mcg/min 22.5 mL/hr (80 mcg/mL) in sodium chloride EDT 0.9% 250 mL infusion Intravenous, CONTINUOUS PRN, Starting on Thu10/01/21 at 1009, Until Thu10/01/21 at 1428, Anesthesia Intra-op, Routine Rate/Dose Change 10/01/2021 10:45 AM EDT 10 mcg/min 7.5 mL/hr Rate/Dose Change 10/01/2021 10:42 AM EDT 20 mcg/min 15 mL/hr PHENYLephrine in NS (PF) (ONIEL-SYNEPHRINE) 0.8 Given 9:45 AM EDT 80 mcg mg/10 mL (80 mcg/mL) multi-dose injection Syrg Intravenous, PRN, Starting on Thu10/01/21 at 0917, Until Thu10/01/21 at 1428, Anesthesia Intra-op, Routine Given 10/01/2021 9:35 AM EDT 80 mcg Given 10/01/2021 9:24 AM EDT 80 mcg propofoL (Diprivan) 10 mg/mL bolus injection Given 10/2021 9:12 AM EDT 150 mg (Anesthesia) Intravenous, PRN, Starting on Thu10/01/21 at 0912, Until Thu10/01/21 at 1428, Anesthesia Intra-op protamine (10 mg/mL) injection Given 10/01/2021 11:27 AM EDT 50 mg Intravenous, PRN, Starting on Thu10/01/21 at 1127, Until Thu10/01/21 at 1428, Anesthesia Intra-op, Routine rocuronium (Zemuron) (10 mg/mL) multi-dose Given 10/01/2021 9:46 AM EDT 10 mg injection Intravenous, PRN, Starting on Thu10/01/21 at 0946, Until Thu10/01/21 at 1428, Anesthesia Intra-op, Routine Given 10/01/2021 9:12 AM EDT 40 mg documented in this encounter Care Teams Grout Pump Operator Relationship Specialty Start Date End Date Sanjuanita Lee MD PCP - General 03/05/13 12/23/[address] [place] [address] documented as of this encounter
--- OUTSIDE RECORDS SUMMARY | 2022-02-22 23:28 | XMS_ITS | Encounter Summary ---
:1950 Author Organization [facility] Address [facility] [place] [address] Care Team Providers Name Role Phone Sanjuanita Lee MD Primary Care Provider Encounter Details Date Type Department Care Team Description 07/10/2021 Orders Only Public Health at [facility] Shruthi Mancilla, Encounter for [facility] Christi Anderson RN preproced ure screening Drive laboratory [place] [address] COVID-19 (Primary Dx) [phone] Social History Tobacco Use Types Packs/Day Years [...] as of this encounter Visit Diagnoses Diagnosis Encounter for preprocedure screening lab oratory testing for COVID-19 - Primary documented in this encounter Care Teams Manager Game Relationship Specialty Start Date End Date Sanjuanita Lee MD PCP - General 03/05/13 12/23/[address] [place] [address] documented as of this encounter
--- OUTSIDE RECORDS SUMMARY | 2022-02-22 23:29 | XMS_ITS | Encounter Summary ---
:1950 Author Organization [facility] [place] [address] Care Team Providers Name Role Phone Sanjuanita Lee MD Primary Care Provider Encounter Details Date Type Department Care Team Description 07/26/2020 Telephone Dermatology at [facility] Shaylee Preston RN [address] [place] [address] Social History Tobacco Use Types Packs/Day Years [...] this encounter Miscellaneous Notes Telephone Encounter - Shaylee Preston RN - 07/26/2020 1:57 PM EDT Returned patient's call. Charlene reports residual suture at edge of graft site on right nasal ala. Denies pain or other concerns. Charlene states she has a friend that is a nurse she will have look at the site and remove the stitch if possible. Offered appointment here in clinic, but due to length of travel p mounika declines. Charlene will call with any further questions/ concerns. Shaylee Preston, RN documented in this encounter Plan of Treatment Scheduled Procedures Name Priority Associated Diagnoses Date/Time EGD, UPPER GI ENDOSCOPY Gastroesophageal reflux disease, esophagitis presence not specifi ed documented as of this encounter Visit Diagnoses Not on filedocumented in this encounter Care Teams Powder Press Operator Relationship Specialty Start Date End Date Sanjuanita Lee MD PCP - General 03/05/13 12/23/[address] [place] [address] documented as of this encounter
--- OUTSIDE RECORDS SUMMARY | 2022-02-22 23:29 | XMS_ITS | Encounter Summary ---
:1950 Author Organization [facility] [place] [address] Care Team Providers Name Role Phone Sanjuanita Lee MD Primary Care Provider Encounter Details Date Type Department Care Team Description 06/27/2020 Laboratory Appointment Lab 3L [facility] Stage 3b [facility] [place] [id number] Social History Tobacco Use Types Packs/Day Years [...] Date/Time Associated Comments Diagnosis HC PARATHYROID Routine 06/27/2020 9:36 AM Stage 3b chronic Res ults for this HORMONE(PTH INTACT EST kidney disease procedu re are in the results section. HEMOGRAM Routine 06/27/2020 9:36 AM Stage 3b chronic Resul ts for this EST kidney disease procedure are in the results section. DIFFERENTIAL, Routine 06/27/2020 9:36 AM Stage 3b chronic Resu lts for this AUTOMATED EST kidney disease procedure are in the results section. HC CBC,PLT & AUTO Routine 06/27/2020 9:36 AM Stage 3b chronic DIFF EST kidney disease HC URIC ACID, SERUM Routine 06/27/2020 9:36 AM Stage 3b chroni c Results for this EST kidney disease procedure are in the results section. HC PHOSPHORUS, SERUM Routine 06/27/2020 9:36 AM Stage 3b chron ic Results for this EST kidney disease procedure are in the results section. HC ALBUMIN, SERUM Routine 06/27/2020 9:36 AM Stage 3b chronic Results for this EST kidney disease procedure are in the results section. BASIC METABOLIC PANEL Routine 06/27/2020 9:36 AM Stage 3b hand roller milagro Results for this (NON-FASTING) EST kidney disease procedure ar e in the results section. documented in this encounter Results (ABNORMAL) Differential, Automated (06/27/2020 9:36 AM EST) [facility] gist Method Time Signature Neutrophils % 58.8 % [facility] Neutr Abs (ANC) 4.41 1.70 - [facility] 6.10 [facility] x10(3)/[facility] LABORATORY Lymphocytes % 17.5 % [facility] Lymphocytes Abs 1.3 0.9 - 3.2 [facility] x10(3)/[facility] LABORATORY Monocytes % 15.2 % [facility] Monocyte Abs 1.1 (H) 0.3 - 0.9 [facility] x10(3)/[facility] LABORATORY Eosinophils % 7.1 % [facility] Eosinophils Abs 0.5 (H) 0.0 - 0.4 [facility] x10(3)/[facility] LABORATORY Basophils % 1.1 % [facility] Basophils Abs 0.1 0.0 - 0.1 [facility] x10(3)/[facility] LABORATORY Immature Gran % 0.30 % [facility] Comment: Immature granulocytes(IG's)percentage an d absolute count will include metamyelocytes, myelocytes, and promyelo cytes. Blood smears from CBCs yielding IG's will be scanned manually for concor dance. If this scan disagrees with the automated IG or if promyelocytes are not ed, a manual differential will be performed. Blanca Gran Abs 0.02 0.00 - 0.04 x10(3)/[facility] LABOR[facility]ORY Specimen Anatomical Collection Method Collection Time Receive d Time (Source) Location / / Volume Laterality Blood specimen 06/27/2020 9:36 AM 021 9:41 (specimen) EST AM EST Resulting Agency Comment Spec In Lab Tyron Kemp MD HEMATOLOGY ORDERABLES Performing Organization Address City/State/ZIP Code Phon e Number [place] [id number] (ABNORMAL) Hemogram (06/27/2020 9:36 AM EST) Analysis Performed At Patho logist Time Signature WBC 7.5 4.0 - 9.5 [facility] x10(3)/[facility] LABORATORY RBC 4.34 4.00 - [facility] 5[facility]21 [facility] x10(6)/[facility] LABORATORY Hemoglobin 13.1 11.7 - [facility] 15.5 gm/dL [facility] LABORATORY Hematocrit 40.2 35.7 - [facility] 45[facility]8 % [facility] LABORATORY MCV 92.6 82.6 - [facility] 94.4 [facility] LABORATORY MCH 30.2 27.1 - [place] 32.0 pg [facility] LABORATORY MCHC 32.6 31.7 - [facility] 35.0 gm/dL [facility] LABORATORY Platelets 294 145 - 357 [facility] x10(3)/[facility] LABORATORY RDWSD 47.8 (H) 37.0 - [facility] 46.0 [facility] LABORATORY RDWCV 14.0 11.5 - [facility] 14.1 % [facility] LABORATORY MPV 10.1 7.6 - 12.9 [facility] LABORATORY nRBC % Auto 0.0 % [facility] nRBC Abs Auto 0.000 0.000 - [facility] 0.000 [facility] x10(3)/[facility] LABORATORY Specimen Anatomical Collection Method Collection Time Receive d Time (Source) Location / / Volume Laterality Blood specimen 06/27/2020 9:36 AM 021 9:41 (specimen) EST AM EST Resulting Agency Comment Spec In Lab Tyron Kemp MD HEMATOLOGY ORDERABLES Performing Organization Address City/State/[place] [address] (ABNORMAL) Basic Metabolic Panel (non-fasting) (06/27/2020 9:36 AM EST) P athologist Signature Glucose Lvl 55 (L) 65 - 199 [facility] mg/dL [facility] LABORATORY Comment: Diabetes: >=200 mg/dL plus symp toms BUN 25 (H) 8 - 18 mg/dL [facility] LABORATORY Creatinine 2.24 (H) 0.70 - 1.20 mg/dL [facility] LABORATORY Sodium 140 135 - 145 mmol/L [facility] Potassium 3.8 3.5 - 5.0 mmol/L [facility] Comment: Please note: ??Patients with WBC >100,00 0 may have falsely elevated Potassium levels. ??For accurate Potassium quantif ication in these patients send serum separator tube (gold top) for subsequent determinations. ??Contact the Clinical Chemistry Laboratory if there are any qu estions. Chloride 100 98 - 107 mmol/L [facility] CO2 30 22 - 31 mmol/L [facility] Anion Gap 10 5 - 15 mmol/L [facility] LABOR[facility]ORY Calcium 9.6 8.5 - 10.5 mg/dL [facility] Estimated GFR 21 (L) >=60 mL/min/1.73 m?? [facility] Comment: This patient? s estimated glomerular filtration rate (eGFR) is between 21 mL/min/1.73 m2 (patients with less muscl e mass) and 25 mL/min/1.73 m2 (patients with more muscle mass) as determined by the CKD-EPI equation. Assessment of eGFR is not appropriate when creatinine concentrations are rapidly changing. For clinical decisions where creatinine clearance will affect therapy, a 24-hour urine creatinine clearance may b e advised. Assignment of CKD stage 1 ? 5 for patients with an eGFR near the transition point between stages may be based on cli nical assessment of muscle mass and symptoms in addition to eGFR. Specimen Anatomical Collection Method Collection Time Receive d Time (Source) Location / / Volume Laterality Blood specimen 06/27/2020 9:36 AM 9:41 (specimen) EST AM EST Resulting Agency Comment Spec In Lab Tyron Kemp MD CHEMISTRY ORDERABLES Performing Organization Address City/[facility]/ZIP [place] [address] Phosphorus (06/27/2020 9:36 AM EST) P athologist Signature Phosphorus 3.9 2.5 - 4.5 [facility] mg/dL [facility] LABORATORY Specimen Anatomical Collection Method Collection Time Receive d Time (Source) Location / / Volume Laterality Blood specimen 06/27/2020 9:36 AM 9:41 (specimen) EST AM EST Resulting Agency Comment Spec In Lab Tyron Kemp MD CHEMISTRY ORDERABLES Performing Organization Address City/[facility]/[place]IP [place] [address] Albumin Level (06/27/2020 9:36 AM EST) P athologist Signature Albumin 4.6 3.2 - 5.2 [place] gm/dL [facility] LABORATORY Specimen Anatomical Collection Method Collection Time Receive d Time (Source) Location / / Volume Laterality Blood specimen 06/27/2020 9:36 AM 9:41 (specimen) EST AM EST Resulting Agency Comment Spec In Lab Tyron Kemp MD CHEMISTRY ORDERABLES Performing Organization Address City/[facility]/[place]IP [place] [address] (ABNORMAL) Uric acid (06/27/2020 9:36 AM EST) P athologist Signature Uric Acid 7.1 (H) 2.5 - 6.5 [place] mg/dL [facility] LABORATORY Specimen Anatomical Collection Method Collection Time Receive d Time (Source) Location / / Volume Laterality Blood specimen 06/27/2020 9:36 AM 9:41 (specimen) EST AM EST Resulting Agency Comment Spec In Lab Tyron Kemp MD CHEMISTRY ORDERABLES Performing Organization Address City/State/[place]IP [place] [address] (ABNORMAL) PTH (06/27/2020 9:36 AM EST) P athologist Signature PTH 88 (H) 15 - 65 [place] pg/mL [facility] LABORATORY Specimen Anatomical Collection Method Collection Time Receive d Time (Source) Location / / Volume Laterality Blood specimen 06/27/2020 9:36 AM 9:41 (specimen) EST AM EST Resulting Agency Comment Spec In Lab Tyron Kemp MD CHEMISTRY ORDERABLES Performing Organization Address City/State/ZIP [place] [address] documented in this encounter Visit Diagnoses Diagnosis Stage 3b chronic kidney disease documented in this encounter Care Teams Director Of Healthcare Systems Relationship Specialty Start Date End Date Sanjuanita Lee MD PCP - General 03/05/13 12/23/[address] [place] [address] documented as of this encounter
--- OUTSIDE RECORDS SUMMARY | 2022-02-22 23:29 | XMS_ITS | Encounter Summary ---
:1950 [place] [address] Care Team Providers Name Role Phone Sanjuanita Lee MD Primary Care Provider Encounter Details Date Type Department Care Team Description 06/27/2020 Telephone [place] [address] Social History Tobacco Use Types Packs/Day [...] documented as of this encounter Miscellaneous Notes Addendum Note - Wan Sigala RN - 06/28/2020 11:23 AM EST Addended by: WAN SIGALA on: 06/28/2020 11:23 AM Modules accepted: Orders Telephone Encounter - Rosa Elena Sims - 06/28/2020 9:27 AM EST Telephone call placed/received to schedule covid 19 testing with patient. Ordering provider: Dr. Darshan Perales Testing Facility: [facility] Date of Testin/8 Time of Testing: TBD Symptoms: No Is this the first test for Covid 19 No, UNK, Neg, [facility] If no, please list date of previous test, result, and type of test (Molecular, Antigen, Antibody or unknown): Resides in congregate care setting No Employee or Household Member of Employee No Healthcare Worker No Telephone Encounter - Mary Valenzuela V - 06/27/2020 4:45 PM EST Patient is going to try and get pre op covid test done on 07/02 at [facility]. Pt will call back to verify. Telephone Encounter - Charline Parsons - 06/27/2020 8:22 AM EST Called pt to sched 07/02 pre-op for 07/05 procedure-had to lm documented in this encounter Plan of Treatment Scheduled Procedures Name Priority Associated Diagnoses Date/Time EGD, UPPER GI ENDOSCOPY Gastroesophageal reflux disease, esophagitis presence not specifi ed documented as of this encounter Visit Diagnoses Diagnosis COVID-19 ruled out documented in this encounter Care Teams Air Drill Operator Relationship Specialty Start Date End Date Sanjuanita Lee MD PCP - General 03/05/13 12/23/21 [address] [place] [address] documented as of this encounter
--- OUTSIDE RECORDS SUMMARY | 2022-02-22 23:29 | XMS_ITS | Encounter Summary ---
:1950 Author Organization [facility] [place] [address] Care Team Providers Name Role Phone Sanjuanita Lee MD Primary Care Provider Encounter Details Date Type Department Care Team Description 06/11/2020 Orders Only Nephrology Hypertension [place] 3b chronic at [facility] [place]as[place] [address] Social History Tobacco Use Types Packs/Day [...] as of this encounter Results (ABNORMAL) PTH (06/27/2020 9:36 AM EST) P athologist Signature PTH 88 (H) 15 - 65 [place] pg/mL [facility]OR[facility]ORY Specimen Anatomical Collection Method Collection Time Receive d Time (Source) Location / / Volume Laterality Blood specimen 06/27/2020 9:36 AM 021 9:41 (specimen) EST AM EST Resulting Agency Comment Spec In Lab Tyron Kemp MD CHEMISTRY ORDERABLES Performing Organization Address City/[facility]/ZIP Code Phon e Number [address] (ABNORMAL) Uric acid (06/27/2020 9:36 AM EST) P athologist Signature Uric Acid 7.1 (H) 2.5 - 6.5 [place] mg/dL [facility]OR[facility] Specimen Anatomical Collection Method Collection Time Receive d Time (Source) Location / / Volume Laterality Blood specimen 06/27/2020 9:36 AM 021 9:41 (specimen) EST AM EST Resulting Agency Comment Spec In Lab Tyron Kemp MD CHEMISTRY ORDERABLES Performing Organization Address City/[facility]/ZIP Code Phon e Number [address] Albumin Level (06/27/2020 9:36 AM EST) P athologist Signature Albumin 4.6 3.2 - 5.2 [place] gm/dL [facility] Specimen Anatomical Collection Method Collection Time Receive d Time (Source) Location / / Volume Laterality Blood specimen 06/27/2020 9:36 AM 021 9:41 (specimen) EST AM EST Resulting Agency Comment Spec In Lab Tyron Kemp MD CHEMISTRY ORDERABLES Performing Organization Address City/[facility]/ZIP Code Phon e Number [address] Phosphorus (06/27/2020 9:36 AM EST) P athologist Signature Phosphorus 3.9 2.5 - 4.5 [place] mg/dL [facility]ORY Specimen Anatomical Collection Method Collection Time Receive d Time (Source) Location / / Volume Laterality Blood specimen 06/27/2020 9:36 AM 021 9:41 (specimen) EST AM EST Resulting Agency Comment Spec In Lab Tyron Kemp MD CHEMISTRY ORDERABLES Performing Organization Address City/State/[place] [address] (ABNORMAL) Basic Metabolic Panel (non-fasting) (06/27/2020 9:36 AM EST) P athologist Signature Glucose Lvl 55 (L) 65 - 199 [facility] mg/dL [facility] Comment: Diabetes: >=200 mg/dL plus symp toms BUN 25 (H) 8 - 18 mg/dL [facility] Creatinine 2.24 (H) 0.70 - 1.20 mg/dL [facility] LABOR[facility] Sodium 140 135 - 145 mmol/L [facility] LABORATORY Potassium 3.8 3.5 - 5.0 mmol/L [facility] Comment: Please note: ??Patients with WBC >100,00 0 may have falsely elevated Potassium levels. ??For accurate Potassium quantif ication in these patients send serum separator tube (gold top) for subsequent determinations. ??Contact the Clinical Chemistry Laboratory if there are any qu estions. Chloride 100 98 - 107 mmol/L [facility]OR[facility]ORY CO2 30 22 - 31 mmol/L [facility]OR[facility]ORY Anion Gap 10 5 - 15 mmol/L [facility] LABORATORY Calcium 9.6 8.5 - 10.5 mg/dL [facility]ORATORY Estimated GFR 21 (L) >=60 mL/min/1.73 m?? [facility] Comment: This patient? s [...] Organization Address City/State/[place] [address] documented in this encounter Visit Diagnoses Diagnosis Stage 3b chronic kidney disease documented in this encounter Care Teams Drum Plater Relationship Specialty Start Date End Date Sanjuanita Lee MD PCP - General 03/05/13 12/23/[address] [place] [address] documented as of this encounter
--- OUTSIDE RECORDS SUMMARY | 2022-02-22 23:29 | XMS_ITS | Encounter Summary ---
:1950 Author Organization [facility] [place] [address] Care Team Providers Name Role Phone Sanjuanita Lee MD Primary Care Provider Reason for Visit Reason Comments Basal Cell Carcinoma Encounter Details Date Type Department Care Team Description 07/05/2020 [facility] Bas[facility] cell carcinoma Road MD Krish of right ala nasi [address] [facility] [address] [facility] [phone] -[place] [id number] Social History Tobacco Use Types Packs/Day Years [...] on file documented as of this encounter Progress Notes Shaylee Preston RN - 07/05/2020 9:00 AM EST Mohs consultation and preoperative note (H&P) Patient Name: Charlene Harmon Age: 69 y.o. Date of : 1950 Today's Date: 07/05/2020 REFERRING PROVIDER: Rolo Sterling MD CC: Mohs micrographic surgery for treatment of a cutaneous tumor HPI: Charlene Harmon is a 69 y.o. female presenting for biopsy-proven basal cell carcinoma, nodular location on the right ala. The dermatologic preoperative information sheet was reviewed with pertinent positive and negative as below. DERMATOLOGIC PRE-OPERATIVE EVALUATION AND REVIEW OF SYSTEMS History of Mohs surgery? no If yes, have you ever had Mohs surgery with Dr. Perales? no Pacemaker/Defibrillator? no Joint replacement or other implantable devices (e.g. Cochlear implant)? If yes then when? no Do you take a blood thinner? Yes Aspirin 81mg History of organ transplant? no History of artificial valve or stroke? no History of liver disease or bleeding disorder? no Do you have any medical problems that may affect your upcoming surgery? no Do you have any concerns regarding your upcoming surgery? no We ask patients to discontinue Fish oil/Multivitamin/Vit E/?? supplements and natural medicines not prescribed by a physician 1 week prior to surgery. SOCIAL HISTORY: Makes Own Decisions Yes Hearing aid or other devices: No Relevant travel history or future plans: None, Patient will have Covid test in [place], [place] prior to procedure. Tobacco use (amount per day, type of tobacco): no Do you have any physical limitations that may affect your surgery?: no ALLERGIES: Allergies reviewed MEDICATIONS: Medications reviewed documented in this encounter Plan of Treatment Scheduled Procedures Name Priority Associated Diagnoses Date/Time EGD, UPPER GI ENDOSCOPY Gastroesophageal reflux disease, esophagitis presence not specifi ed documented as of this encounter Visit Diagnoses Diagnosis Basal cell carcinoma of right ala nasi Basal cell carcinoma of skin of other an d unspecified parts of face documented in this encounter Care Teams Cotton Candy Maker Relationship Specialty Start Date End Date Sanjuanita Lee MD PCP - General 03/05/13 12/23/21 [address] [place] [address] documented as of this encounter
--- OUTSIDE RECORDS SUMMARY | 2022-02-22 23:29 | XMS_ITS | Encounter Summary ---
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 Hypertensive kidney disease with CKD sta ge IV; [facility] [place] [address] Social History Tobacco Use Types Packs/Day Years [...] Sign Reading Time Taken Comments Blood Pressure 100/63 06/27/2020 10:34 AM EST Pulse 74 06/27/2020 10:34 AM EST Temperature - - Respiratory Rate - - Oxygen Saturation - - Inhaled Oxygen Concentration - - Weight 42.8 kg (94 lb 6.4 oz) 06/27/2020 10:34 AM EST Height - - Body Mass Index 18.44 05/14/2020 10:07 AM EST documented in this encounter Patient Instructions Patient InstructionsEva Montana RN - 06/27/2020 10:20 AM EST Your kidney function is stable. Call if you feel differently (consistent symptoms of nausea, vomiting, little appeal for food, itching, change in sleep patterns, worsening energy levels, shortness of breath). These are some of the signs of worsening kidney function. We will see you sooner if you are not feeling well. Please call. Eva [email or web address] architect Kidney Disease Nurse Specialist at [facility] Nephrology. documented in this encounter Progress Notes Tyron Kemp MD - 06/27/2020 10:20 AM EST [facility] [address] [place] [address] Reason for Clinic Visit: Systems Review and CKD management. Seen in clinic with: Eva Montana RN, CKD RN Specialist CKD related to: uncontrolled HTN and renal ischemia summary: 69-year-old female presents for follow-up and kidney disease care management clinic. Patient recently had hospitalization for bowel obstruction status post ex lap, thought secondary to adhesions. Patient is status post left renal bypass grafting and kidney function stable with a eGFR 21 mL/min. It should be noted patient is taking cimetidine which can block creatinine secretion in the distal tubule and this should be considered if we see deterioration in her kidney function (this is artifactual) patient was evaluated by our transplant center and not listed given comorbidities. We will consider further referral to other transplant centers however patient would like to wait on this currently. She pre sents her diligent blood pressure data with 100% of readings within goal. She has not had any fluid overload prompting emergency room visits in quite some time particularly compared to this time last year. Hemoglobin is at goal. Patient has likely secondary hyperparathyroidism in the setting of CKD wewill check nutritional vitamin D level at next visit History of Present Illness: History obtained by RN Specialist: Charlene was last seen 02/08/20, eGFR 19. She was seen without CCM atthat visit due to scheduling conflict. Charlene was hospitalized from 04/24-05/01 for SBO requiring ex-lapand lysis of adhesions. She was also diagnosed with a basal cell carcinoma on her nose and has been recommended for Mohs procedure scheduled for next week. Review of Systems: Sign/Symptom Comments Energy level/fatigue: Back to baseline after SBO surgery. Recently retired as of 11/24/18 Change in sleep patterns: Doing ok - has trouble quieting her mind. Reflux no longer keeps her up. Nocturia: 0-1x Appetite changes: Much better - has gained back some weight. Changed from famotidine to cimetidine Food aversions: Nothing tastes good - everything is very bland Nausea: None Vomiting: None Bowels: Diarrhea immediately post op but not ongoing - improved Edema: None Shortness of breath: None Orthopnea/PND: No PND - 2 pillows - able to stay in bed all night now Muscle Cramping: Yes - Improved Leg cramps at night. Recommended bar of soap in the bed Cold intolerance: Yes - all the time Itching: A little Bruising/bleeding: Easy bruising - no unusual bleeding Mental Status Changes: None - reports improving concentration - about 90% Recent Home Blood Pressure Control: Takes 2x daily, brought in logs Recent Home Diabetic Management: Not a diabetic Recent Lipid Management: On Atorvastatin Advance Directives: on file in [facility] How has your health been in the last 4 weeks? Poor, Fair, Good, Very Good, Excellent. 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 Has potential living donors identified. 06/27/20 - Has been deemed not a candidate by [facility] transplant. Discussed other transplant program options but eGFR >20. Fistula Date/Type of Initial Access/Surgeon: Bruit: Yes No Thrill: Yes No Maturation: Yes No Temperature changes: Yes No Sensation changes: Yes No Pain: Yes No Incision Appearance: Other Comments: * Vaccinations: Hepatitis A Vaccine, Adult 05/18/2015, 12/08/2014, 04/07/2014 10/17/2015 Influenza Vaccine, Unspecified Formulation 02/01/2019 Pneumococcal Polyvalent 23 05/18/2015 Td Vaccine, Absorbed, PF, Adult 05/20/2011 PMH: Patient Active Problem List Diagnosis Code [...] I27.20 ??? SBO (small bowel obstruction) K56.609 No Known Allergies Outpatient Medications Marked as Taking for the 06/27/20 encounter (Office Visit) with Fantasma Kemp MD Medication Sig Dispense Refill ??? carvediloL (Coreg) 12.5 mg Tablet Take [...] mouth every evening. 90 tablet 3 ??? aspirin 81 mg Tablet, Delayed Release (E.C.) Take 81 mg by mouth daily. Physical Exam: BP 100/63 Pulse 74 Wt 42.8 kg (94 lb 6.4 oz) BMI 18.44 kg/m?? Gen: WD WN female in NAD HEENT: [...] or nodules Psych: Mood and affect congruent Labs Results for CHARLENE HARMON ( ) as of 06/27/2020 10:38 Ref. Range 06/27/2020 09:36 WBC Latest Ref Range: 4.0 - 9.5 x10(3)/mcL 7.5 RBC Latest Ref Range: 4.00 - 5.21 x10(6)/mcL 4.34 Hemoglobin Latest Ref Range: 11.7 - 15.5 gm/dL 13.1 Hematocrit Latest Ref Range: 35.7 - 45.8 % 40.2 MCV Latest Ref Range: 82.6 - 94.4 fL 92.6 MCH Latest Ref Range: 27.1 - 32.0 pg 30.2 MCHC Latest Ref Range: 31.7 - 35.0 gm/dL 32.6 RDWSD Latest Ref Range: 37.0 - 46.0 fL 47.8 (H) RDWCV Latest Ref Range: 11.5 - 14.1 % 14.0 Platelets Latest Ref Range: 145 - 357 x10(3)/mcL 294 MPV Latest Ref Range: 7.6 - 12.9 fL 10.1 nRBC % Auto Latest Units: % 0.0 nRBC Abs Auto Latest Ref Range: 0.000 - 0.000 x10(3)/mcL 0.000 Neutr Abs (ANC) Latest Ref Range: 1 - 6 x10(3)/mcL 4.41 Neutrophils % Latest Units: % 58.8 Immature Gran % Latest Units: % 0.30 Lymphocytes % Latest Units: % 17.5 Monocytes % Latest Units: % 15.2 Eosinophils % Latest Units: % 7.1 Basophils % Latest Units: % 1.1 Blanca Gran Abs Latest Ref Range: 0.00 - 0.04 x10(3)/mcL 0.02 Lymphocytes Abs Latest Ref Range: 0.9 - 3.2 x10(3)/mcL 1.3 Monocyte Abs Latest Ref Range: 0.3 - 0.9 x10(3)/mcL 1.1 (H) Eosinophils Abs Latest Ref Range: 0.0 - 0.4 x10(3)/mcL 0.5 (H) Basophils Abs Latest Ref Range: 0.0 - 0.1 x10(3)/mcL 0.1 Sodium Latest Ref Range: 135 - 145 mmol/L 140 Potassium Latest Ref Range: 3.5 - 5.0 mmol/L 3.8 Chloride Latest Ref Range: 98 - 107 mmol/L 100 CO2 Latest Ref Range: 22 - 31 mmol/L 30 Anion Gap Latest Ref Range: 5 - 15 mmol/L 10 BUN Latest Ref Range: 8 - 18 mg/dL 25 (H) Creatinine Latest Ref Range: 0.70 - 1.20 mg/dL 2.24 (H) Estimated GFR Latest Ref Range: >=60 mL/min/1.73 m?? 21 (L) Calcium Latest Ref Range: 8.5 - 10.5 mg/dL 9.6 Phosphorus Latest Ref Range: 2.5 - 4.5 mg/dL 3.9 Uric Acid Latest Ref Range: 2.5 - 6.5 mg/dL 7.1 (H) Glucose Lvl Latest Ref Range: 65 - 199 mg/dL 55 (L) Albumin Latest Ref Range: 3.2 - 5.2 gm/dL 4.6 PTH Latest Ref Range: 15 - 65 pg/mL 88 (H) Problem/Goal/Assessment/Plan: Problem: Chronic Kidney Disease Goal: Reduce rate of progression Education for CKD Stage specific issues Results: Estimated GFR (CKD-EPI): 21 ml/min/1.73m2 CKD Stage 4 Potassium Level - 3.8 CO2 level - 30 Does not tolerate sodium bicarbonate Uric Acid level - 7.1 Changes discussed with RN Specialist: Your kidney function is stable. Call if you feel differently (consistent symptoms of nausea, vomiting, little appeal for food, itching, change in sleep patterns, worsening energy levels, shortness of breath). These are some of the signs of worsening kidney function. We will see you sooner if you are not feeling well. A/P: Problem: Management of Anemia related to Chronic Kidney Disease (CKD) Goal: Hgb 9.5-10.9 g/dl Ferritin>100ng/ml TSAT>20% Today's Results Hgb - 13.1 Ferritin - not tested TSAT - not tested Receiving erythropoetic stimulating agent? No Last IV Iron replacement therapy (Venofer), Date : Dec 2018??received 1 iron infusion - declines additional infusions Changes discussed with RN Specialist: None A/P: Problem: Hypertension Goal: Urine alb:cr ratio <30mg/g - 140/90, Urine alb:cr ratio > 30mg/g - 130/80 Sodium intake < 2 Gm per day. Results: BP today - 100/63 Changes discussed with RN Specialist: None A/P: Problem: Proteinuria Goal: Pro:Cr ratio <0.2mg/mg Alb:Cr ratio < 30mg/g Today's results: Pro:Cr ratio Alb:Cr ratio Changes discussed with RN Specialist: A/P: Problem: Bone Disease Goal: Stage 3 PTH: 35-70 pg/ml Phos 2.7-4.6 Ca 8.5-10.5mg/dl Stage 4 PTH: 70-110 pg/ml Phos 2.7-4.6 Ca 8.5-10.5mg/dl Stage 5 PTH: 150-300 pg/ml Phos 3.5-5.5 Ca 8.5-10.5mg/dl Results: PTH today - 88 (pt not taking calcitriol) Phos today -3.9 (pt not taking binders) Calcium today - 9.6 Changes discussed with RN Specialist: None A/P: Problem: Nutrition Goal: Albumin > 4.0gm/dl BMI 20-25 kg/m2 Results: Albumin today - 4.6 Changes discussed with RN Specialist: Continue healthy eating A/P: Problem: Dyslipidemia Goal: LDL < 100 mg/dl Results: LDL today - Changes discussed with RN Specialist: Pt on atorvastatin 20 mg daily A/P: Problem: Findings: Changes discussed with RN Specialist: A/P: Referral: Summary: Return to CKD clinic: 6 months documented [...] origin) documented in this encounter Care Teams Rental Clerk Relationship Specialty Start Date End Date Sanjuanita Lee MD PCP - General 03/05/13 12/23/[address] [place] [address] documented as of this encounter
--- OUTSIDE RECORDS SUMMARY | 2022-02-22 23:29 | XMS_ITS | Encounter Summary ---
:1950 Author Organization [facility] [place] [address] Care Team Providers Name Role Phone Sanjuanita Lee MD Primary Care Provider Reason for Visit Reason Comments Basal Cell Carcinoma Consultation (Routine) - Closed Specialty Diagnoses / Procedures Referred By Contact Refer red To Contact Dermatology Diagnoses Basal cell carcinoma (BCC), unspecified site Rolo Galloway MD Leboeuf, Matthew R, MD [facility] [place] [id number] [place] [address] Fax: Referral ID Status Reason Start Date Expiration Date Visits V isits Requested Authorized [id number] Closed Consult, 05/17/2020 05/17/2021 1 1 Test & Treat Encounter Details Date Type Department Care Team Description 07/05/2020 Procedure visit Dermatology at [facility] Prophylactic antibiotic; Chet Rutherford MD Basal cell carcinoma of right ala [address] [facility] [id number] RIO [phone] [place] [address] Social History Tobacco Use Types Packs/Day Years [...] Sign Reading Time Taken Comments Blood Pressure 151/60 07/05/2020 8:48 AM EST Pulse 56 07/05/2020 8:48 AM EST Temperature - - Respiratory Rate - - Oxygen Saturation - - Inhaled Oxygen Concentration - - Weight - - Height - - Body Mass Index - - documented in this encounter Patient Instructions Patient InstructionsCoccShaylee hernandez RN - 07/05/2020 9:15 AM EST Your staff Mohs surgeon today was Darshan Bang MD, PhD. GRAFT CLOSURE Part of all of your wound(s) was repaired by a graft. Cartilage graft taken from right ear. This means that skin was removed from another location (donor site) and used to stitch the wound created by your skin cancer surgery. A graft is performed when alternative procedures such as [id number] stitching is not optimal. Your graft may be closed using all dissolvable suture, sutures that need to be removed or a combination of both. You will be instructed upon discharge if a suture removal appointmentis necessary. Caring for a graft properly is very important because the graft relies on blood supply from its new location to survive and heal properly. The most important thing in helping a graft heal fully is to avoid picking off any scabs, and to keep the area covered with copious amounts of topical petrolatum (such as Vaseline or Aquaphor). See specific instructions for wound care below. Things to purchase for wound care: -Nonstick gauze -A tube or tub of petrolatum jelly (fragrance-free, no dye, not lotion) -paper tape (especially if you are sensitive to adhesives) or bandages -cotton swabs -gloves (optional) -Dial or other antibacterial liquid soap Wound Care ??? Gently remove your initial bandage after 3 days ON YOUR GRAFT. The graft will appear discolored for several weeks, either dark purple or pale in color. ??? The DONOR SITE (right preauricular) and right ear bandage can be removed after 3 days. Donor site was closed using sutures, as long as you keep petrolatum (Vaseline), on your donor site, this does not require daily bandaging the way that your graft does. ??? If your initial bandage(s) only stayed on for 24 hours (for example, falls off sooner), this is okay. Begin would care sooner, as below. ??? Change your bandage once a day, or whenever it becomes wet or soaks through). You want to continue bandaging daily until your graft fully heals. This is a minimum of one week, but ideally continueduntil the graft has completely healed. The timeline for a graft to heal can range from 1 week to 8 weeks; you will continue wound care until healing is complete. For bandage changes: o Wash hands with soap and water, or use gloves. o Use a cotton swab to apply a generous layer of petrolatum over the graft site. o Make sure your tube or jar of petrolatum is new or unused to prevent prior contamination from entering your wound. Avoid double dipping. o After applying petrolatum, use a clean nonstick gauze or other nonstick dressing, such as Telfa. This may be purchased over the counter at a drug store. Do not use regular gauze as it will stick to your wound and can peel off healing skin with bandage changes. o Secure the bandage with paper tape or a bandage. Band-aids are okay, but typically have more adhesive that can irritate the skin compared to paper tape. This can be purchased at a drug store. o Continue this wound care daily until the graft has healed, unless otherwise specified by your surgeon or Mohs nurse. After Surgery ??? Avoid tobacco, smoking/vapors, cigars, and cannabis (marijuana) for at least 3 weeks after your surgery. These prevent proper healing and lead to worse scarring. Cutting back on tobacco is helpful if you cannot abstain completely. ??? Do not participate in athletic activities for 1 week, unless you were told a different timeline during your visit. Athletic activity is a relative term, but this is considered to be anything that could potentially raise your heartrate or blood pressure. Elevating your heart rate and blood pressureincreases the risk of swelling, bleeding, wound opening, and it could lead to worse scarring. Walking at a leisurely pace is fine for most people, but not if you are walking for the purpose of exercise. When in doubt, take it easy or call us. ??? Do not lift anything heavier than 10 pounds for the first week unless told differently. ??? Some flyer repairer may need to be delayed or delegated such as vacuuming, mowing the lawn, snow shoveling, or caring for young children that need to be carried/lifted. Working any major muscle groups increases your heart rate and can increasing bleeding. ??? Avoid swimming, hot tubs, and direct water pressure for 3 weeks after surgery. You may shower, however, once your initial bandage comes off in 48 hours. ??? Avoid antibiotic ointments such as triple antibiotic creams. ??? Whenever possible, it is helpful to take photographs with your camera or cell phone of any problems or concerns you see with your wound. We often ask for photos when you call with questions. ??? Starting 2 months following surgery, you can begin firm massage to any areas of firm scar along your incision to soften the scar and reduce bumpiness. Do this 3 times per day, 3 minutes each time. Do not start massage before 2 months. ??? Your wound will appear almost completely healed soon after sutures are removed (about 1 week), but incisions can remain bright red for several weeks. Then the scarring and healing process continuesunder the skin for 6 months until to 2 years. The scar may become less red, less firm, and more subtle during this time; please note that the rate of improvement varies depending on the person. Most redness, discoloration, bumpiness resolves by 6 months, and most patients will look presentable within a few weeks after surgery. ??? Keep your follow-up appointments and make sure to continue to have your skin checked, as often as is recommended by your picker tender, for new skin cancers. This is once per year for most patients. ??? You can expect your scar to be red for several weeks with gradual fading of the redness. Your scar will also be raised and lumpy until the dissolvable sutures under the skin get absorbed by your body which can take 3-4 months. The scar will flatten eventually. o If you have a skin condition called rosacea, the redness can last long-term, or you can get an increased appearance of red vessels to the skin. The appearance of vessels slightly improves, but tends to respond well to laser treatments. ??? Occasionally, about 10-20% of the time on the face, the stitches under the skin can spit out of the incision to the surface. It can start out looking like a pimple or blemish directly on your incision. Sometimes you can feel something poking through the incision. It can mimic a small area of infection, so please let us know before you go to another provider for antibiotics. This means that the suture may need to be trimmed or removed when you return for your wound check. This typically occurs a few weeks after surgery if it does occur. ??? To optimize your scar, and best cosmetic result, please avoid direct sunlight to your incision for the first 6 months following surgery. UV ray exposure to your incision may cause the redness to last longer, or to cause permanent darkening of your scar. You can avoid sun by covering your incision w ith a bandage when outdoors, wearing broad-brimmed hats, and wearing SPF 30 to 50 sunscreen (broad spectrum). ??? Your incision may still be healing up to 2 weeks after surgery. Because of this, avoid make-up and sunscreen until approximately 2 weeks after surgery. You can begin sooner if your skin edges look completely sealed. Avoid applying over graft site until it is fully healed, this may be several weeks. ??? Any time you have skin surgery or any type of surgery, you can experience mild sensation loss (numbness) in the area of surgery. Massage starting at 8 weeks after surgery can help. Swelling and bruising is common, and expected, especially if your surgery site was on the forehead, cheeks, temples, nose, or eyelids. . Sometimes it can be quite profound, where the eyelids swell shut, or getting black eyes. This is especially true if you are on blood thinners such as aspirin. Swelling and bruising will peak at about 48 hours after surgery. Bruising and swelling will gradually resolve. You can use ice packs or a bag of frozen peas for 15-20 minutes, 20 minutes off, up to 3-4 times daily to areas of swelling on the face. Use caution not to put the icy item directly onto your incision, or directly in contact with your skin as this can damage skin. Avoid prolonged use more than 20 minutes. The best way to use ice packs is over the bandage, or using a light cloth/paper towel barrier between the ice pack and your skin. You can ice for as many days as needed until swelling has resolved. Eyelid and lip swelling is typically the last type of swelling to resolve. Antibiotics: If you were given antibiotic prescription, it is important to start them the evening of your surgerydate. However, most patients do not need antibiotics after surgery. For pain: Most patients of different ages do not require pain medications. If you do feel soreness, throbbing or sharp pains, start by taking over the counter extra strength acetaminophen (up to 3000 mg in a 24 hour period). Generally, we like you to avoid NSAIDS (non-steroid anti-inflammatory drugs such as ibuprofen) for the first 48 hours after surgery as this can increase risk of bleeding. However, if acetaminophen is not helping with pain, you can alternate acetaminophen with ibuprofen or other NSAID. Icepacks over your bandage without getting your bandage wet can also help with pain and swelling. Frozen peas work well as ice packs. THIS IS AN EXAMPLE OF A PAIN TREATMENT SCHEDULE: 1) You can take 500 mg acetaminophen one tablet by mouth at 6:00pm. This is over the counter. 2) You can take 400 mg of ibuprofen two hours later, at 8:00 pm, or other NSAID such as naproxen, aslong as it does not interact with your other medications and your other doctors have not told you toavoid this. This is over the counter. Check to see how many milligrams (mg) each of your ibuprofen tablets are. Most of the time, ibuprofen comes in 200 mg tablets, so 400 mg would mean taking two of these tablets or capsules. 3) You can take 500 mg of acetaminophen at 10:00 pm. Keep track of your total acetaminophen in a 24 hour period as your maximum should be 3000 mg total in a 24 hour period of this medication. 4) At midnight, you can take another 400 mg of ibuprofen. 5) you can continue on this schedule over the next 2 days, making sure to keep tabs of your total acetaminophen. If you are still in pain after trying the above, please call us. When to call your surgeon: ??? Fever of 100.4 degrees Fahrenheit or higher ??? Bleeding not controlled with direct firm pressure to your wound. Bleeding is most common in the first 48 hours. ??? Pain that is worsening and not relieved by over the counter medications such as acetaminophen (up to 3000 mg in a 24 hour period) ??? Wound reopening after stitching ??? Pus or bad odor from your wound ??? Worsening redness and warmth around your wound ??? If you think your surgery site is infected, please call us before seeking care or antibiotics from other providers ??? Please call us before seeking care in an emergency room or primary care. ??? If you do call, please leave your full name, phone number, date of , date of surgery, and medical record number if you have it. If after hours, please call the gate shear operator or [phone] and ask for the picker tender on-call. If you have any non-urgent questions or concerns, please feel free to call my office or contact me through our patient portal, [email or web address], at [email or web address] How to contact us during business hours Dermatology at [facility] [address]: Mohs scheduling or Mohs follow-up appointments: [phone] documented in this encounter Progress Notes Darshan Bang MD - 07/05/2020 9:15 AM EST Images from the original note were not included. Summary of Procedure(s): Site: right nasal ala Tumor Type: Basal Cell Carcinoma, nodular Stages to clear tumor: 2 Repair: cartilage graft/ full-thickness skin graft Images: The patient was asked to call with any issues and is aware that I am available 17/11 should questionsarise. Darshan Bang MD PhD Mohs Micrographic Surgery and Dermatologic Oncology Department of Dermatology Please note that I have reviewed the preoperative checklist from today's nursing visit including relevant social history and medications. I have reviewed the preoperative photos if available and the biopsy report. VITAL SIGNS: There were no vitals taken for this visit. PHYSICAL EXAMINATION: General: patient is awake, alert, oriented and in no acute distress. Skin: Focused examination of surgical site(s) performed which shows a well healed biopsy site with surrounding poorly defined pearly plaque. PHYSICIAN REVIEW OF REPORTS, RECORDS, IMAGES: 1) The accompanying pathology report(s) associated with aforementioned biopsy slide(s) were/was alsoreviewed. Assessment: Charlene Harmon is a 69 y.o. female presenting for: 1. Biopsy-proven basal cell carcinoma, nodular located on the right nasal ala. Plan: 1. Findings from the biopsy report, today's clinical exam, and other pertinent details were reviewedwith patient today. All questions were answered. 2. Discussed treatment options based on the above findings. We recommended Mohs micrographic surgeryfor treatment of this tumor. Mohs micrographic surgery was indicated due to patient, site and/or tumor characteristics (see operative report for specific indication). 3. We discussed risks, benefits, and alternative treatment options to the Mohs micrographic surgery procedure and pertinent information including but not limited to the following: ?? Risks include bleeding, infection, scar, recurrence, incomplete tumor removal or inability to cure with surgery alone if the tumor features are more aggressive than the initial pathology indicates. Occasionally, additional adjuvant treatments may be recommended. Additional risks include large wound, prolonged wound and healing, pain, swelling, bruising, increased appearance of vessels or worseningerythema of baseline skin; more rarely risks include damage to underlying structures such as nerves,cartilage, or muscle which could lead to temporary or permanent loss of sensation or motor function. ?? Benefit is precise tumor removal ?? If reconstruction is performed, it is specific to the patient and defect. ?? Discussed that the shape, size, depth of the wound is often not known until the tumor is cleared and thus the reconstruction options are sometimes not known until after tumor clearance. Occasionally, referrals to other providers may be recommended for reconstruction based on patient preference and need. ?? Reviewed the pros and cons of common reconstructions used for this tumor type, size, and location, and that reconstruction may lead to change in appearance. ?? Natural history of scar was discussed, including that the scar will continue to mature for 1-2 years. Recommended avoidance of special ointments or scar creams, and avoidance of direct sun exposure to the scar for optimal recovery. ?? Reviewed that there are some aspects of cosmesis that are dependent on patient's characteristics such as age, skin laxity/texture factors, inflammatory skin diseases such as rosacea, prior surgery/radiation, degree of actinic damage, smoking status, strength of the patient's immune system, diligentwound care, medications, and genetics. ?? Having Mohs surgery may lead to physical limitations for optimal healing, such as restricted physical activity and heavy lifting. 4. The nature of sun-induced photo-aging and skin cancers was discussed. Recommended sun avoidance when possible, especially peak hours of sun 10 am to 2pm, protective clothing such as wide-brimmed hats and long-sleeved clothing, and the use of SPF broad-spectrum sunscreen SPF 50 or higher. 5. Signs and symptoms of skin cancer reviewed. Patient to report any new, changing, or symptomatic lesions and follow up with his or her picker tender or other skin provider. 6. Discussed avoiding direct sun exposure to scars for best cosmetic result. Note initiated by LAWRENCE Pineda RN has performed the documentation for this encounter in the presence of and acting as a scribe for Dr. Bang I performed the above scribed service and agree with the accuracy of the documentation in this encounter. Reviewed and signed by: Darshan Bang Dermatology [facility] Darshan Bang MD - 07/05/2020 9:15 AM EST Mohs micrographic Surgery Operative Report Patient name: Charlene Harmon : 1950 Date: 07/05/2020 Staff Surgeon: Darshan Bang MD PhD Nursing/Meteorologist Liaison(s): Shaylee Preston RN, Corrine Vance [facility], Karina Dean-Ines GUEST SERVICES DIRECTOR, Eden Lomeli [facility], Nolan Ann [facility], Giuliana Magdaleno [facility] Warehouse Manager (s): Tata Randall Pre-operative diagnosis: Basal Cell Carcinoma, nodular Post-operative diagnosis: Same Location/Site: right Nasal ala Procedure: Mohs micrographic surgery Indication(s) for Mohs micrographic surgery: Anatomic location for tissue conservation Stages: 2 Preoperative size of tumor: 0.8 x 1.0 cm Stage I The nature and purpose of the procedure, associated risks, possible consequences and complications,and alternative forms of treatment were explained in detail. We reviewed the possible repairs based on the clinical appearance of tumor but discussed that often the repair options may not be known until the tumor has my extirpated. Informed consent and permission to take photographs were obtained. The site was confirmed with the patient/authorized sales representative marine supplies/referring physician and/or a photograph form time of biopsy. A pre-operative time-out (procedural pause) was conducted with no unresolved d iscrepancies noted. Local anesthesia was obtained with 1% lidocaine with 1:100,000 epinephrine. The surgical site was prepped and draped in the usual sterile manner. With all visible gross tumor completely excised, the borders of the tumor and 2-3 mm margins were excised as a complete layer. Hemostasis was achieved by electrocoagulation. The excised tissue was oriented and divided into 2 sections, chromacoded, and submitted for frozen sections. The patient tolerated the procedure well and without complications. On microscopic evaluation of the frozen sections, residual tumor was identified as basal cell carcinoma on section A1 and A2 (see section number on map). Stage II The surgical site was re-anesthetized with 1% lidocaine with 1:100,000 epinephrine, re-prepped and redraped in a sterile manner. The residual tumor was re-excised as a complete layer 2-3mm in thickness using the Mohs map to delineate area of residual tumor. Hemostasis was achieved with electrocoagulat ion. The tissue was oriented and divided into 1 sections, chromacoded, and submitted for frozen sections. The patient tolerated the procedure well and without complications. On microscopic evaluation of the frozen sections, no residual tumor was identified on the deep or outer border of the sections. Depth of excision mucosa Final defect size: 1.2 x 1.3 cm Darshan Bang MD PhD Mohs Micrographic Surgery and Dermatologic Oncology Department of Dermatology [address] [place] [id number] Repair Report (Cartilage Graft) Patient ID: Charlene Harmon Date: 07/05/2020 Procedure: Autogenous graft of ear cartilage to nose, including harvesting of graft, including intermediate primary repair of the donor site Clinical Diagnosis: defect status post Mohs micrographic surgery with structural compromise Location/Site of the Mohs primary defect: right nasal ala Indication: temple of structural support and anatomy Primary defect size following Mohs: 1.3 x 1.2 cm Cartilage donor site: right antihelix Cartilage graft size: 2 x 0.4 cm Final length of the donor site repair on the ear: 3 cm Discussed with patient the purpose of the cartilage graft and plan for reconstruction of the nose byfirst providing structural and anatomical support with cartilage. Anesthesia with 1% lidocaine with 1:100,000 epinephrine and another sterile prep was performed. To avoid anatomic distortion of the nose, a template was made of the defect, and a cartilage graft was carefully planned with extra length compared to the defect and harvested from the right antihelix. After hemostasis was obtained with electrocoagulation, the graft was defatted and trimmed to fit into the right nasal ala, after which the donor site was repaired by intermediate closure using 5-0 Monocryl dermal/subcutaneous sutures and 5-0Prolene epidermal running and/or interrupted sutures. After the cartilage graft, this was followed by the repair (as below) for the remaining defect. Darshan Bang MD PhD Mohs Micrographic Surgery and Dermatologic Oncology Department of Dermatology [address] [place] [id number] OPERATIVE REPORT (REPAIR) Patient Name: Charlene Harmon Age: 69 y.o. : 1950 Date: 07/05/2020 Staff Surgeon: Darshan Bang MD PhD Assistants: Shaylee Preston RN, Corrine Vance CMA, Karina Meng LPN, Eden Lomeli CMA Diagnosis: Status post Mohs micrographic surgery defect/wound Site: Right nasal ala Final Defect Size prior to repair: 1.3 x 1.2 cm Donor site: right preauricular INDICATION: repair and temple of anatomy/function PROCEDURE: Full-thickness skin graft A graft was chosen as repair after discussing various repair options and pros and cons of those. Anesthesia with 1% lidocaine with 1:100,000 epinephrine and another sterile prep were performed. To avoid anatomical distortion, a template was made of the defect, and a full-thickness skin graft was carefully planned and harvested from the right preauricular. The graft was defatted and trimmed to fit thedefect. After hemostasis was obtained with electrocoagulation, the graft was sutured into place with6-0 Prolene skin sutures. The donor area was converted to a fusiform defect and closed with 5-0 Monocryl/ 6-0 Prolene sutures. Final graft size: 1.3 x 1.2 cm. Estimated blood loss: Minimal. Complications: None. Wound care: Routine Preoperative medications: None Post-operative medications: Kefelx 500mg BID x 7 days e-faxed to pharmacy Follow-up: 7 days Total local anesthesia with 1% lidocaine with 1:100,000 epinephrine used: 12cc Total local with 0.25% bupivacaine used: 6cc Darshan Bang MD PhD Mohs Micrographic Surgery and Dermatologic Oncology Department of Dermatology [address] [place] [address] Note initiated by Shaylee Preston, RN Shaylee Preston RN has performed the documentation for this encounter in the presence of and acting as a scribe for Dr. Bang I performed the above scribed service and agree with the accuracy of the documentation in this encounter. Reviewed and signed by: Darshan Bang Dermatology [facility] documented in this encounter Plan of Treatment Scheduled Procedures Name Priority Associated Diagnoses Date/Time EGD, UPPER GI ENDOSCOPY Gastroesophageal reflux disease, esophagitis presence not specifi ed documented as of this encounter Visit Diagnoses Diagnosis Prophylactic antibiotic Encounter for long-term (current) use of antibiotics Basal cell carcinoma of right ala nasi Basal cell carcinoma of skin of other an d unspecified parts of face documented in this encounter Care Teams Fish Receiver Relationship Specialty Start Date End Date Sanjuanita Lee MD PCP - General 03/05/13 12/23/21 [address] [place] [address] documented as of this encounter
--- OUTSIDE RECORDS SUMMARY | 2022-02-22 23:29 | XMS_ITS | Encounter Summary ---
:1950 Author Organization [facility] [place] [address] Care Team Providers Name Role Phone Sanjuanita Lee MD Primary Care Provider Encounter Details Date Type Department Care Team Description 01/29/2021 Orders Only Nephrology Hypertension Rashmi Vega CKD (chronic kidney at [facility] L, RN disease) stage 4, GFR [facility] 15-29 ml/ [place] [address] Social History Tobacco Use Types Packs/Day [...] Protein/Creatinine Ratio, urine (02/19/2021 12:33 PM EDT) athologist Signature U Creatinine 44 mg/dL [facility] U Protein Ran 16 (H) 0 - 12 [facility] Prot/Cre Ratio 0.4 ratio [facility] Specimen Anatomical Collection Method Collection Time Receive d Time (Source) Location / / Volume Laterality Urine 02/19/2021 12:33 02/19/2021 PM EDT 12:39 PM EDT Resulting Agency Comment Spec In Lab Tyron Kemp MD URINE ORDERABLES Performing Organization Address City/[facility]/ZIP Code Phon e Number [address] Vitamin D, 25-Hydroxy (02/19/2021 12:24 PM EDT) [facility] Method Time Signature 25-OH Vit D 46 21 - 100 [facility] Total ng/mL [facility] 25-OH Vit D Sufficient [facility] LABORATORY Specimen Anatomical Collection Method Collection Time Receive d Time (Source) Location / / Volume Laterality Blood 02/19/2021 12:24 02/19/2021 PM EDT 12:36 PM EDT Resulting Agency Comment Spec In Lab Tyron Kemp MD CHEMISTRY ORDERABLES Performing Organization Address City/[facility]/[place] [address] (ABNORMAL) PTH (02/19/2021 12:24 PM EDT) athologist Signature PTH 83 (H) 15 - 65 [facility] pg/mL [facility] Specimen Anatomical Collection Method Collection Time Receive d Time (Source) Location / / Volume Laterality Blood 02/19/2021 12:24 02/19/2021 PM EDT 12:36 PM EDT Resulting Agency Comment Spec In Lab Tyron Kemp MD CHEMISTRY ORDERABLES Performing Organization Address City/[facility]/ZIP Code Phon e Number [address] (ABNORMAL) Uric acid (02/19/2021 12:24 PM EDT) athologist Signature Uric Acid 7.6 (H) 2.5 - 6.5 [facility] mg/dL [facility] Specimen Anatomical Collection Method Collection Time Receive d Time (Source) Location / / Volume Laterality Blood 02/19/2021 12:24 02/19/2021 PM EDT 12:36 PM EDT Resulting Agency Comment Spec In Lab Tyron Kemp MD CHEMISTRY ORDERABLES Performing Organization Address City/[facility]/ZIP Code Phon e Number [address] Albumin Level (02/19/2021 12:24 PM EDT) athologist Signature Albumin 4.4 3.2 - 5.2 [facility] g/dL [facility] Specimen Anatomical Collection Method Collection Time Receive d Time (Source) Location / / Volume Laterality Blood 02/19/2021 12:24 02/19/2021 PM EDT 12:36 PM EDT Resulting Agency Comment Spec In Lab Tyrno Kemp MD CHEMISTRY ORDERABLES Performing Organization Address City/[facility]/ZIP Code Phon e Number [address] Phosphorus (02/19/2021 12:24 PM EDT) athologist Signature Phosphorus 3.6 2.5 - 4.5 [facility] mg/dL [facility] Specimen Anatomical Collection Method Collection Time Receive d Time (Source) Location / / Volume Laterality Blood 02/19/2021 12:24 02/19/2021 PM EDT 12:36 PM EDT Resulting Agency Comment Spec In Lab Tyron Kemp MD CHEMISTRY ORDERABLES Performing Organization Address City/[facility]/[place] [address] (ABNORMAL) Basic Metabolic Panel (non-fasting) (02/19/2021 12:24 PM EDT) athologist Signature Glucose Lvl 89 65 - 199 [facility] mg/dL [facility] Comment: Diabetes: >=200 mg/dL plus symp toms BUN 30 (H) 8 - 18 mg/dL [facility] Creatinine 2.28 (H) 0.70 - 1.20 mg/dL [facility] Sodium 139 135 - 145 mmol/L [facility] Potassium 4.1 3.5 - 5.0 mmol/L [facility] Comment: Please note: ??Patients with WBC >100,00 0 may have falsely elevated Potassium levels. ??For accurate Potassium quantif ication in these patients send serum separator tube (gold top) for subsequent determinations. ??Contact the Clinical Chemistry Laboratory if there are any qu estions. Chloride 99 98 - 107 mmol/L [facility] CO2 28 22 - 31 mmol/L [facility] Anion Gap 12 5 - 15 mmol/L [facility] Calcium 9.6 8.5 - 10.5 mg/dL [facility] Estimated GFR 21 (L) >=60 mL/min/1.73 m?? [facility] Comment: This patient? s [...] Organization Address City/State/[place] [address] documented in this encounter Visit Diagnoses Diagnosis CKD (chronic kidney disease) stage 4, GF R 15-29 ml/min Chronic kidney disease, Stage IV (severe ) documented in this encounter Care Teams Stage Rigger Relationship Specialty Start Date End Date Sanjuanita Lee MD PCP - General 03/05/13 12/23/[address] [place] [address] documented as of this encounter
--- OUTSIDE RECORDS SUMMARY | 2022-02-22 23:29 | XMS_ITS | Encounter Summary ---
:1950 Author Organization [facility] [place] [address] Care Team Providers Name Role Phone Sanjuanita Lee MD Primary Care Provider Reason for Visit Reason Comments Hospital Transfer Abdominal Pain Auth/Cert Specialty Diagnoses / Procedures Referred By Contact Refer red To Contact Diagnoses SBO (small bowel obstruction) SBO Procedures EMERGENCY IPI Referral ID Status Reason Start Date Expiration Date Visits Requ ested Visits Authorized [id number] 1 1 Encounter Details Date Type Department Care Team Description 04/24/2020 - Hospital Encounter 1 [facility] Aime Etienne MD [facility] [place] [address] SBO (small bowel obstruction); 05/01/2020 [facility] Edwin Ayala MD [facility] [place] [address] [facility] Judy Atkins MD [facility] [place] [address] [place] [id number] Social History Tobacco Use Types Packs/Day Years [...] Sign Reading Time Taken Comments Blood Pressure 149/69 05/01/2020 8:22 AM EST Pulse 92 05/01/2020 8:28 AM EST Temperature 36.9 ??C (98.4 ??F) 05/01/2020 8:22 AM EST Respiratory Rate 16 05/01/2020 8:22 AM EST Oxygen Saturation 95% 05/01/2020 4:09 AM EST Inhaled Oxygen Concentration - - Weight 42.6 kg (94 lb) 04/24/2020 7:45 PM EST Height 152.4 cm (5') 04/24/2020 7:45 PM EST Body Mass Index 18.36 04/24/2020 7:45 PM EST documented in this encounter Discharge Summaries Judy Casper MD - 04/30/2020 4:20 PM EST Images from the original note were not included. General Surgery Discharge Summary Name: Charlene Harmon Date of : 1950 Attending: AIME KEBEDE PAUL H BRIGGS, ALEXANDRA Date of Admission: 04/24/2020 Date of Discharge: 05/01/20 Reason for admission: Post operative care following: Procedure(s): @EXPLORATORY LAPAROTOMY, WITH/WITHOUT BIOPSY(S) (WRVU 12.54) Surgeon(s) and Role: * Edwin Ayala MD - Primary * Rafita Davis MD - Resident History of Present Illness: Taken from Dr. Cuevas's note on 04/24/20: HPI: This is a 69 y.o. female with medical history significant for hypertension, hyperlipidemia, PVD, CKD, bilateral renal artery stenosis s/p R bypass in 2019, infrarenal AAA, CHF (EF 59% 05/2019), andhysterectomy who presents with one day of abdominal pain and emesis. ?? She reports that symptoms began yesterday evening when she felt a pressure in her epigastric region. When she woke up in the morning she felt nauseous and had four episodes of emesis during the morning. She then presented to [facility] for evaluation. A CT abdomen/pelvis was performed and concerning for asmall bowel obstruction. She [place] [facility] [place]. ?? On arrival she appears hemodynamically stable. Her abdomen is mildly tender but overall benign. She denies nausea at this time. She reports that she has been passing gas today and had a loose bowel movement this morning. Of note, she reports that she is constipated at baseline and often goes 3-4 days between bowel movements. Hospital Course: 04/24/2020: Pt was admitted for SBO and initially treated conservatively with NGT decompression and bowel rest; however her abd pain persisted despite NGT decompression and worsened on 04/27/20 along with failure of contrast to progress on plain flims at which point it was decided to treat the high grade SBO operatively with ex-lap and lysis of adhesions. Patient underwent the above procedure and hadan uneventful operative course.She tolerated the operation well and without complication. Her NGT was removed on 04/28/20 after successful clamp trial. The patient's hospital course was otherwise uncomplicated and she was deemed stable for discharge to home on post-operative day 5. Prior to discharge on 05/01/20 or hospital day 7, patient's pain was well controlled with oral pain medications, whitaker catheter was removed, patient was voiding without difficulty, and wound(s) were intact and healing appropriately. Patient was having regular bowel movements, and tolerating a Regular diet. Vitals were within normal limits and patient was determined medically ready for discharge to home. Vital Signs Last value Range last 24hrs Temperature Temp: 36.9 ??C (98.4 ??F) Temp: [36.6 ??C (97.9 ??F)-37 ??C (98.6 ??F)] Heart Rate Heart Rate: 92 Heart Rate: [92] Blood Pressure BP: 149/69 BP: (144-150)/(65-72) Respiratory Rate Resp: 16 Resp: [16] SpO2 SpO2: 95 % SpO2: [94 %-95 %] Physical Exam: GEN: Resting comfortably in room, pleasant, conversant, NAD. HEENT: Normocephalic, atraumatic, anicteric sclerae CHEST: No increased work of breathing CV: Regular rate. Well perfused. ABD: Soft, less distended. incision clean and intact EXTR: Moving spontaneously. No edema SKIN: Warm and dry. NEURO: Alert and follows commands. ?? Pertinent Lab Data: Recent Labs 05/01/20 0400 04/30/20 0351 04/29/20 0139 WBC 12.4* 13.1* 12.4* HGB 12.2 12.7 12.2 HCT 37.6 38.2 37.8 PLATELET 223 226 200 Recent Labs 05/01/20 0400 04/30/20 0351 04/29/20 0139 NA 134* 135 136 K 3.9 3.9 4.1 CL 101 103 108* CO2 22 21* 21* BUN 21* 18 23* CREATININE 1.49* 1.38* 1.41* GLUCOSE 78 89 101 CALCIUM 7.7* 7.3* 7.4* MAGNESIUM 0.71 0.68* 0.83 PHOS 3.6 3.3 1.7* Medications: Your Medications New Medications Dose Details oxyCODONE 5 mg Tab Commonly known as: Roxicodone Take 1 tablet by mouth every 6 hours as needed for Pain. 5 mg Quantity: 10 tablet Refills: 0 senna-docusate 8.6-50 mg Tab Commonly known as: Pericolace Take 1 tablet by mouth daily. 1 tablet Quantity: 60 tablet Refills: 0 Continued medications, unchanged Dose Details acetaminophen 500 [...] mg Cap Commonly known as: Neurontin Take 100 mg by mouth nightly. 100 mg Refills: 0 hydrALAZINE 25 mg Tab [...] 75 mcg Quantity: 90 tablet Refills: 3 melatonin 5 mg Tab Take by mouth. Refills: 0 Allergies: No Known Allergies Imaging: Xr Abdomen 1 View (generic) Result Date: 04/27/2020 EXAMINATION: XR ABDOMEN 1 VIEW (GENERIC) CLINICAL HISTORY: s/p contrast challenge. TECHNIQUE: Singlefrontal view of the abdomen COMPARISON: Abdominal radiographs 04/25/2020 and 04/26/2020 FINDINGS: Esophagogastric tube terminates in the stomach. Enteric contrast in multiple dilated small bowel loops. Nonvisualization of contrast in the ascending colon. Surgical clip projects over the right upper quadrant. Unchanged osseous structures. * Enteric contrast in multiple dilated small bowel loops. * No contrast visualized in the colon. Thank you for letting us participate in the care of this patient. For questions regarding this report, please contact the number below. Xr Abdomen 1 View (generic) Result Date: 04/26/2020 EXAMINATION: XR ABDOMEN 1 VIEW (GENERIC) CLINICAL HISTORY: s/p contrast challenge. SBO TECHNIQUE: Single frontal view of the abdomen COMPARISON: Abdominal radiographs 04/26/2020 0900 hours and 0047 hours FINDINGS: Esophagogastric tube terminates in the stomach. Enteric contrast in multiple dilated small bowel loops. No enteric contrast in the colon. Unchanged osseous structures. * Enteric contrast in multiple dilated small bowel loops (up to 4.4 cm). * No enteric contrast in the colon. Thank you for letting us participate in the care of this patient. For questions regarding this report, please contact the number below. Electronically signed by: Yasir Brito MD, [facility] ([phone]), at 04/26/2020 8:30 PM Xr Abdomen 1 View (generic) Result Date: 04/26/2020 EXAMINATION: XR ABDOMEN 1 VIEW (GENERIC) CLINICAL HISTORY: SBO. f.u contrast challenge TECHNIQUE: Single frontal view of the abdomen, portable supine at 0900 hours COMPARISON: Multiple priors, most recent 04/26/2020 FINDINGS: Orogastric tube tip overlies left upper abdomen in region of gastric fundus,as before. Enteric contrast is seen in multiple dilated small bowel loops (4.1 cm), in left abdomen and pelvis, as before. No oral contrast visualized in the colon, as before. Small amount of fecal material in nondilated right colon. Small amount of gas in region of rectum. Free air not excluded on this supine exam. Unchanged osseous structures. Surgical clips right abdomen. Lung bases are clear. No significant change since 04/26/2020. Enteric contrast in multiple small bowel loops dilated up to4.1 cm. No oral contrast visualized in the colon. Thank you for letting us participate in the care of this patient. For questions regarding this report, please contact the number below. Electronically signed by: Tamy Santos MD, [facility] ([phone]), at 04/26/2020 9:45 AM Xr Abdomen 1 View (generic) Result Date: 04/26/2020 EXAMINATION: XR ABDOMEN 1 VIEW (GENERIC) CLINICAL HISTORY: SBO. s/p Contrast challange TECHNIQUE: Single frontal view of the abdomen COMPARISON: Abdominal radiographs 04/25/2020 0609 hours and 1132 hours FINDINGS: Esophagogastric tube terminates in the stomach. A surgical clip projects over the right upper quadrant. Enteric contrast is seen in multiple small bowel loops dilated up to 4.1 cm. No definite visualization of contrast in the colon. Unchanged osseous structures. Lung bases are clear. Enteric contrast is seen in multiple small bowel loops dilated up to 4.1 cm. No definite visualization of contrast in the colon. Thank you for letting us participate in the care of this patient. For questions regarding this report, please contact the number below. Electronically signed by: Yasir Brito MD, [facility] ([phone]), at 04/26/2020 3:29 AM Xr Abdomen 1 View (generic) Result Date: 04/25/2020 EXAMINATION: XR ABDOMEN 1 VIEW (GENERIC) CLINICAL HISTORY: ngt placement confirmation TECHNIQUE: AP portable supine abdomen COMPARISON: 04/25/2020, earlier in the day. FINDINGS: Since the previous study, an NG tube has been placed with the tip and sidehole in the fundus of the stomach. There is less co ntrast in the stomach. Dilute contrast is visualized in multiple dilated loops of small bowel, similar to the earlier image. The NG tube and sidehole are in the stomach. Thank you for letting us participate in the care of this patient. For questions regarding this report, please contact the number below. Electronically signed by: Spike To MD, [facility] ([phone]), at 04/25/2020 11:50 AM Xr Abdomen 1 View (generic) Result Date: 04/25/2020 EXAMINATION: XR ABDOMEN 1 VIEW (GENERIC) CLINICAL HISTORY: Contrast administered at IN, assess contrast progression TECHNIQUE: AP portable supine abdomen COMPARISON: CT scan of the chest, abdomen and pelvis 04/24/2020. FINDINGS: Contrast is present in the stomach and faintly in multiple dilated loops of small bowel. There is a paucity of gas in the colon. No large bowel contrast seen. The findings are consistent with small bowel obstruction. There is a surgical clip projected over the right upper quadrant. The lung bases are clear. Contrast is present in the stomach and faintly in numerous loops of dilated small bowel but not in the decompressed colon consistent with small bowel obstruction. Thank you for letting us participate in the care of this patient. For questions regarding this report, please contact the number below. Elec tronically signed by: Spike To MD, [facility] ([phone]), at 04/25/2020 8:08 AM Request For 2nd Read Ct Chest Abdomen Pelvis Result Date: 04/24/2020 EXAMINATION: REQUEST FOR 2ND READ CT CHEST ABDOMEN PELVIS CLINICAL HISTORY: ?SBO; What Modality is the exam? CT Scan; Body Part (please add comments as necessary): SHARI/ABD/PEL; Sending Institution [facility]; Date of exam [id number]; I believe a reinterpretation of this exam may alter care of Patient. Yes TECHNIQUE: Helical CT of the chest and abdomen was performed without intravenouscontrast. Oral contrast was not administered.. COMPARISON: CT abdomen and pelvis 10/17/2019. FINDINGS: The absence of intravenous contrast limits the evaluation of solid viscera and vasculature. Chest: Lungs and large airways: Normal. Pleura: No effusion. Heart/vasculature: Scattered atherosclerotic coronary calcifications. Normal heart size without pericardial effusion. No thoracic aortic aneurysm. Atherosclerotic calcification throughout the aorta and its branches. Lymph nodes/Mediastinum/Cristiane: No bulky adenopathy. Lower neck: Normal thyroid gland. Chest wall: Unremarkable. Abdomen: Liver: Normal for noncontrast study without lesions. Bile ducts: Nondilated. Gallbladder: A small subcentimeter layering gallstones. Normal caliber wall. Pancreas: Normal attenuation without ductal dilatation. Spleen: Normal for noncontrast study without lesions. Adrenals: Normal. Kidneys: A 2 to 3 mm left lower pole nonobstructing calculus. Left midpole hypodense lesion measuring centimeter consistent with a cyst.No hydronephrosis bilaterally. Vasculature: Thoracoabdominal aortic aneurysm which begins just proximal to the diaphragmatic hiatus and extends to aortic bifurcation. The distal thoracic aorta measuresup to 3.7 cm. Infrarenal abdominal aortic aneurysm component measures up to 5.4 x 4.1 cm (AP.TV), similar to the prior study dated 10/17/2019. Just above the bifurcation, there is stable outpouching involving the left posterior lateral wall measuring 1.8 cm. There might be a small degree of calculationerror due to tortuosity of abdominal aorta. 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 Lymph Nodes: No bulky adenopathy. Bowel: Lack of oral contrast limits evaluation of the bowel. Fluid-filled dilated loops of small bowel are seen measuring up to 3.2 cm in the anterior mid abdomen. The terminal ileum and colon are decompressed. No discrete transition point is identified. Ho wever it is thought to be present in the terminal ileum. No free intraperitoneal air or pneumatosis.Peritoneum and mesentery: No ascites, free air, or loculated fluid collection. Abdominal wall: Normal. Osseous structures: No suspicious lesions. Diffuse osseous demineralization is noted with Hounsfield units measured at L1 which are in the range of osteopenia. 1. No focal consolidation, pleural effusion or pneumothorax. 2. Nonobstructing renal calculus in themidpole left kidney measuring 2 to 3 mm. 3. Lack of oral contrast limits evaluation. 4. Diffusely dilated small bowel loops measuring up to 3.2 cm with nonvisualization of the transition point. Howevertransition point is thought to be in the distal small bowel. Collapsed distal most portion of the terminal ileum and large bowel. 5. Oral contrast limits evaluation of the solid viscera and vasculature. 6. Redemonstration of the known thoracoabdominal aortic aneurysm measuring up to 5.4 x 4.1 cm as described. No definitive periaortic fat stranding or mesenteric haziness to suggest leak. These findings are similar to the prior study dated 10/17/2019. Recommend Doppler ultrasound for further evaluation. Thank you for letting us participate in the care of this patient. For questions regarding this report, please contact the number below. Electronically signed by: Johnson Ruth MD, [facility] ([phone]), at 04/24/2020 9:13 PM Film Library- Storage Only Ct Chest Abdomen Pelvis Result Date: 04/24/2020 This exam is auto-finalizing. It's purpose is for storage only. Outpatient Services/Studies: No discharge procedures on file. PLAN: Follow up in clinic with [facility] in 2-4 weeks Disposition: Home Condition at discharge: Stable Instructions Given to Patient at Discharge: Patient Instructions Discharge Instructions You were were admitted and treated for the following diagnosis: Bowel obstruction,operatively treated with exploratory laparotomy and lysis of adhesions CALL YOUR PHYSICIAN IF: 1. You have a fever greater than 101F 2. You have diarrhea or vomiting for >24 hours, or stop having bowel movements and passing flatus 3. You have worsening pain, not controlled with your pain medication. 4. You develop redness, swelling, or new drainage from your wounds Follow up: Future Appointments Date Time Provider Department Center 05/14/2020 1:20 PM Rolo Sterling MD [facility] Narcotics/Pain Medications: You may be given a prescription for a narcotic medication immediately following your surgery. Narcotics are prescribed for short-term (1-3 days) use to help treat your pain. Narcotics do not reduce inflammation and it is inflammation that is usually a major cause of pain after surgery. Narcotics have many side effects such as constipation, lightheadedness, dizziness, sedation, confusion, nausea and vomiting. Driving and the use of alcohol are not recommended while you are using narcotic pain medications. Please use ibuprofen (motrin, advil) 600 mg three times per day with food and tylenol 650 mg every 8hours between the ibuprofen doses. Non-steroidal anti-inflammatories (NSAIDS) such as aspirin, Aleve and ibuprofen (Advil, Motrin) are medications that reduce pain and inflammation. To reduce your chance of side effects, it is recommended that you use Tylenol as needed for pain andthen NSAIDs and use narcotics as the last resort. Alternative means of pain relief such as rest and relaxation, positioning, as well as decreasing stimulants such as coffee, tea, soft drinks, and nicotine may also help to alleviate pain. If you continue to experience significant pain 4-5 days after your discharge, it may be necessary darien re-evaluated by your physician. Driving Restrictions: - No driving if you are too sore to enter or exit your vehicle comfortably, or if you are too sore to easily check your blind spot. No driving while using prescription pain medications Activities: - Discuss return to work or school with your provide at your follow up appointment in the trauma clinic. - Increase your activity slowly. If it hurts don't do it, but try again the following day. - You may tire easily, so frequent naps may be necessary.. - Talk with your doctor about when you can return to work or school. - You may take a shower but have someone nearby in case you need help. Diet: Eat a well-balanced diet. Fresh fruits, vegetables and fiber-containing foods are recommended. This will assist in wound healing. Recommendations: - Take it easy for two weeks. Remember, If it hurts, don't do it. - Take several slow, short walks each day for the first two weeks, and gradually increase your distance. We recommend at least 4 times a day. Wound Care: - You can shower per usual routine - Do not submerge wounds under water (avoid spas, pools and bathtubs) until fully healed. - Do not use creams, oils, or ointments on the wound. - See follow-up appointments for removal of sutures/alex. Comfort: - Some soreness can be expected. - Take your pain medication as needed and prescribed. - Taper use of pain medication as pain lessens. Follow up appointments: 1. You will have follow-up appointments at [facility] as indicated in the ???Future Appointments and Orders?? section of your discharge summary. If X-rays or CT scans have been ordered for you prior to thisappointment you will need to report to the Radiology department, desk 3T, 1 hour prior to your clinic appointment time. 2. If you do not have a scheduled follow-up appointment listed at the time of discharge, you will benotified of your scheduled appointment on the next business day. Please call [phone] if you do not hear from us by that time, as your timely follow-up is very important to us. Your care was managed by the Trauma and Acute Care Surgery Team at [facility]. If you have any questions or concerns, please feel free to contact us. Provider Contact Information: General Surgery: [facility] [place]after business hours): Primary Care Physician: Sanjaunita Lee MD General Instructions Adhesions: What to Expect at Home Your Recovery You have had surgery to remove adhesions. Adhesions are scar tissue that forms between two structures or organs inside the body that aren't normally connected to each other. You may also have had part of your small or large intestine taken out. You're likely to feel weak and tired, and you may feel sick to your stomach. It's common to have some pain in your belly and around your incision. The pain should steadily get better over the next few weeks. You may be able to return to normal activities after 2 to 4 weeks. Your bowel movements may not be regular for several weeks. And you may have some blood in your stool. This care sheet gives you a general idea about how long it will take for you to recover. But each person recovers at a different pace. Follow the steps below to get better as quickly as possible. How can you care for yourself at home? Activity ? Rest when you feel tired. Getting enough sleep will help you recover. ? Try to walk each day. Start by walking a little more than you did the day before. Bit by bit, increase the amount you walk. Walking boosts blood flow and helps prevent pneumonia and constipation. ? Avoid strenuous activities, such as biking, jogging, weight lifting, or aerobic exercise, until your doctor says it is okay. ? Avoid lifting anything that would make you strain. This may include heavy grocery bags and milk containers, a heavy briefcase or backpack, cat litter or dog food bags, a vacuum fur cleaner, or a child. ? Ask your doctor when you can drive again. ? You will probably need to take a few days or weeks off from work. It depends on the type of work you do and how you feel. ? You may shower 24 to 48 hours after surgery, if your doctor says it is okay. Pat the cut (incision) dry. Do not take a bath for the first 2 weeks, or until your doctor tells you it is okay. ? Ask your doctor when it is okay for you to have sex. Diet ? You may not have much appetite after the surgery. But try to eat a healthy diet. Your doctor will tell you about any foods you should not eat. ? Eat a low-fiber diet for several weeks after surgery. Eat many small meals throughout the day.Add high-fiber foods a little at a time. ? Eat yogurt. It puts good bacteria into your colon and may help prevent diarrhea. ? You may need to take vitamins that contain sodium and potassium. Your doctor will tell you whether you should take any vitamins or supplements. ? Drink plenty of fluids (enough so that your urine is light yellow or clear like water) to prevent dehydration. Choose water and other caffeine-free clear liquids until you feel better. If you have kidney, heart, or liver disease and have to limit fluids, talk with your doctor before you increasethe amount of fluids you drink. Medicines ? Your doctor will tell you if and when you can restart your medicines. You will also get instructions about taking any new medicines. ? If you take aspirin or some other blood thinner, ask your doctor if and when to start taking it again. Make sure that you understand exactly what your doctor wants you to do. ? Take pain medicines exactly as directed. ? If the doctor gave you a prescription medicine for pain, take it as prescribed. ? If you are not taking a prescription pain medicine, ask your doctor if you can take an vurj-xza-pnwprls medicine. ? If you think your pain medicine is making you sick to your stomach: ? Take your medicine after meals (unless your doctor has told you not to). ? Ask your doctor for a different pain medicine. ? If your doctor prescribed antibiotics, take them as directed. Do not stop taking them just because you feel better. You need to take the full course of antibiotics. ? If your doctor recommends or gives you a stool softener for constipation, take it as directed. Incision care ? If you have strips of tape on the cut (incision) the doctor made, leave the tape on for a weekor until it falls off. Or follow your doctor's instructions for removing the tape. ? Wash the area daily with warm, soapy water, and pat it dry. Don't use hydrogen peroxide or alcohol, which can slow healing. You may cover the area with a gauze bandage if it weeps or rubs againstclothing. Change the bandage every day. ? Keep the area clean and dry. Follow-up care is a burgess part of your treatment and safety. Be sure to make and go to all appointments, and call your doctor if you are having problems. It's also a good idea to know your test results and keep a list of the medicines you take. When should you call for help? Call 911 anytime you think you may need emergency care. For example, call if: ? You passed out (lost consciousness). ? You are short of breath. Call your doctor now or seek immediate medical care if: ? You are sick to your stomach or cannot drink fluids. ? You have signs of a blood clot in your leg (called a deep vein thrombosis), such as: ? Pain in your calf, back of the knee, thigh, or groin. ? Redness and swelling in your leg or groin. ? You have signs of infection, such as: ? Increased pain, swelling, warmth, or redness. ? Red streaks leading from the incision. ? Pus draining from the incision. ? A fever. ? You cannot pass stools or gas. ? You have pain that does not get better after you take pain medicine. ? You have loose stitches, or your incision comes open. ? Bright red blood has soaked through the bandage over your incision. Watch closely for changes in your health, and be sure to contact your doctor if you have any problems. Where can you learn more? Visit our health information library at [email or web address] You can also view health information on Userlike Live Chat, your personal patient account. Log in or sign up today. Enter N163 in the search box to learn more about Adhesions: What to Expect at Home. Current as of: August 10, 2019?Content Version: 12.7 ?? [email or web address]. Care instructions adapted under license by [facility]. If you have questions about a medical condition or this instruction, always ask your healthcare professional. [email or web address] disclaims any warranty or liability for your use of this information. Future Appointments and Orders Future Appointments and Orders Future Appointments Provider Department Dept Phone 05/14/2020 10:30 AM Yuki Escamilla APRN [place] [facility] [place] at[place] [facility] Floorperson Area 4L [phone] 05/14/2020 1:20 PM Rolo Sterling MD Dermatology at [facility] Arrive at: Machine Fe[facility] Floorperson [address] [place] [address] Signed: Indu Hinojosa MD General Surgery [facility] pager [phone] Primary Torrie Physician: Sanjuanita Lee MD [address] [facility] [id number] Attending Addendum I have seen and examined the patient, I have reviewed the vitals, labs and pertinent imaging. I havediscussed the documentation above and agree, with the following comments: Doing great. Tolerating diet without difficulty and having bowel function. Less distended than yesterday. Eager to go home and was getting dressed when I stopped by to visit. She knows the signs/symptoms that would prompt call/representation to the hospital. Judy Casper MD [phone] documented in this encounter Discharge Instructions Discharge InstructionsIndu Hinojosa MD - 05/01/2020 10:23 AM EST Images from the original note were not included. Adhesions: What to Expect at Home Your Recovery You have had surgery to remove adhesions. Adhesions are scar tissue that forms between two structures or organs inside the body that aren't normally connected to each other. You may also have had part of your small or large intestine taken out. You're likely to feel weak and tired, and you may feel sick to your stomach. It's common to have some pain in your belly and around your incision. The pain should steadily get better over the next few weeks. You may be able to return to normal activities after 2 to 4 weeks. Your bowel movements may not be regular for several weeks. And you may have some blood in your stool. This care sheet gives you a general idea about how long it will take for you to recover. But each person recovers at a different pace. Follow the steps below to get better as quickly as possible. How can you care for yourself at home? Activity ? Rest when you feel tired. Getting enough sleep will help you recover. ? Try to walk each day. Start by walking a little more than you did the day before. Bit by bit, increase the amount you walk. Walking boosts blood flow and helps prevent pneumonia and constipation. ? Avoid strenuous activities, such as biking, jogging, weight lifting, or aerobic exercise, until your doctor says it is okay. ? Avoid lifting anything that would make you strain. This may include heavy grocery bags and milk containers, a heavy briefcase or backpack, cat litter or dog food bags, a vacuum fur cleaner, or a child. ? Ask your doctor when you can drive again. ? You will probably need to take a few days or weeks off from work. It depends on the type of work you do and how you feel. ? You may shower 24 to 48 hours after surgery, if your doctor says it is okay. Pat the cut (incision) dry. Do not take a bath for the first 2 weeks, or until your doctor tells you it is okay. ? Ask your doctor when it is okay for you to have sex. Diet ? You may not have much appetite after the surgery. But try to eat a healthy diet. Your doctor will tell you about any foods you should not eat. ? Eat a low-fiber diet for several weeks after surgery. Eat many small meals throughout the day.Add high-fiber foods a little at a time. ? Eat yogurt. It puts good bacteria into your colon and may help prevent diarrhea. ? You may need to take vitamins that contain sodium and potassium. Your doctor will tell you whether you should take any vitamins or supplements. ? Drink plenty of fluids (enough so that your urine is light yellow or clear like water) to prevent dehydration. Choose water and other caffeine-free clear liquids until you feel better. If you have kidney, heart, or liver disease and have to limit fluids, talk with your doctor before you increasethe amount of fluids you drink. Medicines ? Your doctor will tell you if and when you can restart your medicines. You will also get instructions about taking any new medicines. ? If you take aspirin or some other blood thinner, ask your doctor if and when to start taking it again. Make sure that you understand exactly what your doctor wants you to do. ? Take pain medicines exactly as directed. ? If the doctor gave you a prescription medicine for pain, take it as prescribed. ? If you are not taking a prescription pain medicine, ask your doctor if you can take an czhj-exg-psklbyu medicine. ? If you think your pain medicine is making you sick to your stomach: ? Take your medicine after meals (unless your doctor has told you not to). ? Ask your doctor for a different pain medicine. ? If your doctor prescribed antibiotics, take them as directed. Do not stop taking them just because you feel better. You need to take the full course of antibiotics. ? If your doctor recommends or gives you a stool softener for constipation, take it as directed. Incision care ? If you have strips of tape on the cut (incision) the doctor made, leave the tape on for a weekor until it falls off. Or follow your doctor's instructions for removing the tape. ? Wash the area daily with warm, soapy water, and pat it dry. Don't use hydrogen peroxide or alcohol, which can slow healing. You may cover the area with a gauze bandage if it weeps or rubs againstclothing. Change the bandage every day. ? Keep the area clean and dry. Follow-up care is a burgess part of your treatment and safety. Be sure to make and go to all appointments, and call your doctor if you are having problems. It's also a good idea to know your test results and keep a list of the medicines you take. When should you call for help? Call 911 anytime you think you may need emergency care. For example, call if: ? You passed out (lost consciousness). ? You are short of breath. Call your doctor now or seek immediate medical care if: ? You are sick to your stomach or cannot drink fluids. ? You have signs of a blood clot in your leg (called a deep vein thrombosis), such as: ? Pain in your calf, back of the knee, thigh, or groin. ? Redness and swelling in your leg or groin. ? You have signs of infection, such as: ? Increased pain, swelling, warmth, or redness. ? Red streaks leading from the incision. ? Pus draining from the incision. ? A fever. ? You cannot pass stools or gas. ? You have pain that does not get better after you take pain medicine. ? You have loose stitches, or your incision comes open. ? Bright red blood has soaked through the bandage over your incision. Watch closely for changes in your health, and be sure to contact your doctor if you have any problems. Where can you learn more? Visit our Octro information library at [email or web address] You can also view health information on Userlike Live Chat, your personal patient account. Log in or sign up today. Enter N163 in the search box to learn more about Adhesions: What to Expect at Home. Current as of: August 10, 2019?Content Version: 12.7 ?? [id number] [email or web address]. Care instructions adapted under license by [facility]. If you have questions about a medical condition or this instruction, always ask your healthcare professional. [email or web address] disclaims any warranty or liability for your use of this information. Patient InstructionsIndu Hinojosa MD - 05/01/2020 10:22 AM EST Discharge Instructions You were were admitted and treated for the following diagnosis: Bowel obstruction,operatively treated with exploratory laparotomy and lysis of adhesions CALL YOUR PHYSICIAN IF: 1. You have a fever greater than 101F 2. You have diarrhea or vomiting for >24 hours, or stop having bowel movements and passing flatus 3. You have worsening pain, not controlled with your pain medication. 4. You develop redness, swelling, or new drainage from your wounds Follow up: Future Appointments Date Time Provider Department Center 05/14/2020 1:20 PM Rolo Sterling MD [facility] Narcotics/Pain Medications: You may be given a prescription for a narcotic medication immediately following your surgery. Narcotics are prescribed for short-term (1-3 days) use to help treat your pain. Narcotics do not reduce inflammation and it is inflammation that is usually a major cause of pain after surgery. Narcotics have many side effects such as constipation, lightheadedness, dizziness, sedation, confusion, nausea and vomiting. Driving and the use of alcohol are not recommended while you are using narcotic pain medications. Please use ibuprofen (motrin, advil) 600 mg three times per day with food and tylenol 650 mg every 8hours between the ibuprofen doses. Non-steroidal anti-inflammatories (NSAIDS) such as aspirin, Aleve and ibuprofen (Advil, Motrin) are medications that reduce pain and inflammation. To reduce your chance of side effects, it is recommended that you use Tylenol as needed for pain andthen NSAIDs and use narcotics as the last resort. Alternative means of pain relief such as rest and relaxation, positioning, as well as decreasing stimulants such as coffee, tea, soft drinks, and nicotine may also help to alleviate pain. If you continue to experience significant pain 4-5 days after your discharge, it may be necessary darien re-evaluated by your physician. Driving Restrictions: - No driving if you are too sore to enter or exit your vehicle comfortably, or if you are too sore to easily check your blind spot. No driving while using prescription pain medications Activities: - Discuss return to work or school with your provide at your follow up appointment in the trauma clinic. - Increase your activity slowly. If it hurts don't do it, but try again the following day. - You may tire easily, so frequent naps may be necessary.. - Talk with your doctor about when you can return to work or school. - You may take a shower but have someone nearby in case you need help. Diet: Eat a well-balanced diet. Fresh fruits, vegetables and fiber-containing foods are recommended. This will assist in wound healing. Recommendations: - Take it easy for two weeks. Remember, If it hurts, don't do it. - Take several slow, short walks each day for the first two weeks, and gradually increase your distance. We recommend at least 4 times a day. Wound Care: - You can shower per usual routine - Do not submerge wounds under water (avoid spas, pools and bathtubs) until fully healed. - Do not use creams, oils, or ointments on the wound. - See follow-up appointments for removal of sutures/alex. Comfort: - Some soreness can be expected. - Take your pain medication as needed and prescribed. - Taper use of pain medication as pain lessens. Follow up appointments: 1. You will have follow[place]up appointments at [facility] [place] as indicated in the ???Future Appointments and Orders?? section of your discharge summary. If X-rays or CT scans have been ordered for you prior to thisappointment you will need to report to the Radiology department, desk 3T, 1 hour prior to your clinic appointment time. 2. If you do not have a scheduled follow-up appointment listed at the time of discharge, you will benotified of your scheduled appointment on the next business day. Please call [phone] if you do not hear from us by that time, as your timely follow-up is very important to us. Your care was managed by the Trauma and Acute Care Surgery Team at [facility]. If you have any questions or concerns, please feel free to contact us. Provider Contact Information: General Surgery: [facility] [place] business hours): Primary Care Physician: Sanjuanita Lee MD documented in this encounter Medications at Time of Discharge Medication Sig Dispensed Refills Start Date End Date carvediloL (Coreg) 12.5 Take 1 tablet by 180 tablet 3 2019 mg TabletIndications: mouth 2 times daily Hypertensive urgency (with meals). hydrALAZINE (Apresoline) Take 1 tablet by 270 tablet 3 03/29 25 mg TabletIndications: mouth 3 times Hypertensive urgency daily. isosorbide dinitrate Take 1 tablet by 270 tablet 3 0 (ISORDIL) 20 mg mouth 3 times TabletIndications: Chest daily. pain, unspecified type levothyroxine (Synthroid) Take 1 tablet by 90 tablet 3 12/26 75 mcg Tablet mouth daily. amLODIPine (Norvasc) 5 mg Take 1 tablet by 90 tablet 1 11/26 TabletIndications: mouth daily. Uncontrolled hypertension cimetidine (TAGAMET) 400 Take 400 mg by 0 mg Tablet mouth 2 times daily. furosemide (Lasix) 20 mg Take 20 mg by mouth 0 Tablet 2 times daily. Takes at 0800 and 1600 gabapentin (NEURONTIN) Take 300 mg by 0 100 mg Capsule mouth nightly. atorvastatin (LIPITOR) 20 Take 1 tablet [...] by mouth 0 Delayed Release (E.C.) daily. senna-docusate Take 1 tablet by 60 tablet 0 05/01/202011/2021 (Pericolace) 8.6-50 mg mouth daily. Tablet melatonin 5 mg Tablet Take by mouth. 0 06/04/2021 documented as of this encounter Progress Notes Grace Awan RN - 05/01/2020 1:45 PM EST Charlene was here for a SBO, p/o day #5 ex lap with lysis of adhesion. Midline incision C/D/I, MIRNA. Rates pain in abdomen 2/10, denies any need for pain medications. Able to tolerate PO intake, but endorses having a decreased appetite. Patient discharged today via private car home, will be picking up. AVS reviewed with patient before discharge, all questions/ concerns addressed. All lines/ drains/ devices removed from patient. Patient is aware of all f/u appointments. Discharged via [facility] around 1315. Denise Menard RN - 05/01/2020 10:20 AM EST OFFICE OF CARE MANAGEMENT [facility] Discharge Note Denise Menard RN reviewed record and discussed patient with Care Team. Patient plan of care discussed in multidisciplinary rounds and assessment for continuing care and discharge needs. Diagnosis: Small Bowel Obstruction LOS Hospital: 7 days INSURANCE: Payor: MEDICARE / Plan: MEDICARE PART A & B / Product Type: *No Product type* / SECONDARY INSURANCE: BLUE CROSS BLUE [employer] DECISION MAKER: Attempt Cardiopulmonary Resuscitation - Inpatient Received Patient is medically ready for discharge today. No discharge needs identified at this time Transportation: will drive patient home via private vehicle when medically ready. Support: Due to current public health concerns, I have verbally reviewed Medicare Discharge Rights with patient. Patient verbalizes understanding of right to appeal this discharge if feeling not medically ready. Important Message From Medicare about Your Rights letter was reviewed with patient. Patient given a copy. Patient acknowledged understanding of their right to appeal this discharge if they feel that they are not medically ready. [facility] to follow with team and family to assist with discharge needs when patient ready for discharge. Denise Menard RN, BSN Case Management pgr [phone] Indu Hinojosa MD - 05/01/2020 10:16 AM EST ID/MECHANISM OF INJURY: Charlene Harmon is a 69 y.o. female S/p OR CASE INFORMATION: 04/26/2020 - 04/27/2020 Procedure(s): @EXPLORATORY LAPAROTOMY, WITH/WITHOUT BIOPSY(S) (WRVU 12.54) FOLLOW-UP NEEDED: Does pt need to f-u with surgeon or TIRE FINISHER (please indicate reason if attending provider): Follow up in clinic with TIRE FINISHER in 2-4 weeks What follow-up with TACS team is needed and how soon? Follow up in clinic with TIRE FINISHER in 2-4 weeks Follow-up with other services? No Advise of Service and needs. Imaging orders entered: No Radiology Safety questions done for MRI/CT? N/A New or current ostomy? Ostomy nurse shared visit N/A Mobility concerns: Fully ambulatory Wound vac (requires 60min clinic visit) N/A On vent? If Yes - Needs to have someone from facility and supplies. N/A On Dialysis: N/A (SCHEDULE?) INCIDENTAL FINDINGS Incidental Findings (yes/no): No OPIOID CONSENT/NARCOTIC AGREEMENTS Current Month Narcotic Consent? Yes Isolation No Isolation D/c to: Home If Rehab - Rehab Name: PCP Name: MD Indu Apodaca MD 05/01/2020 Fanta Sampson RN - 04/30/2020 12:13 PM EST Office of Care Management (OCM /Caremanger (CM)Discharge planning ) Service: ACS Pager #[phone] e-DH reviewed. [facility] Patient plan of care discussed with Team and Nursing to assessment for continuing care and dischargeneeds. [facility]: 6 DECISION MAKER: Attempt Cardiopulmonary Resuscitation - Inpatient, Received Ongoing Issues: Pt is doing well tolerated clear liquids yesterday. Waiting for BM Is passing flatus Current Referral in place: No Needs anticipated Barriers to Discharge: None Family Concerns: None voiced at this time Anticipate Transport at time of discharge: Family Plan: CM will continue to follow for coordination of care and to facilitate discharge planning. Fanta Taylor RN Pager # [phone] Judy Crane MD - 04/30/2020 9:34 AM EST Acute Care Surgery Daily Progress Note ID: Charlene Harmon is a 69 y.o. female presenting with small bowel obstruction who failed non operativemanagement. She is now 4 Days Post-Op s.p exlap with lysis of adhesion. 24hr events/Subjective: ?? No acute events overnight ?? Tolerating CLD ?? Continues to pass flatus, no BM yet ?? Pain well controlled O: Last value Range last 24hrs Temperature Temp: 36.9 ??C (98.4 ??F) Temp: [36.6 ??C (97.9 ??F)-36.9 ??C (98.4 ??F)] Heart Rate Heart Rate: 57 Heart Rate: -- Blood Pressure BP: 164/68 BP: (149-164)/(64-69) Respiratory Rate Resp: 16 Resp: [16] SpO2 SpO2: 94 % SpO2: [94 %-95 %] 04/29 700 - 04/30 0700 In: 1912 [P.O.:1011; I.V.:740] Out: 1500 [Urine:1500] Physical Exam: GEN: Resting comfortably in room, pleasant, conversant, NAD. HEENT: Normocephalic, atraumatic, anicteric sclerae CHEST: No increased work of breathing CV: Regular rate. Well perfused. ABD: Soft, less distended. incision clean and intact EXTR: Moving spontaneously. No edema SKIN: Warm and dry. NEURO: Alert and follows commands. Labs: Recent Labs 04/30/20 0351 04/29/20 0139 04/28/20 0445 WBC 13.1* 12.4* 13.3* HGB 12.7 12.2 12.7 HCT 38.2 37.8 39.2 PLATELET 226 200 242 Recent Labs 04/30/20 03504/29/20 0139 04/28/20 0445 NA 135 136 143 K 3.9 4.1 3.9 CL 103 108* 109* CO2 21* 21* 23 BUN 18 23* 27* CREATININE 1.38* 1.41* 1.41* GLUCOSE 89 101 120 CALCIUM 7.3* 7.4* 8.0* MAGNESIUM 0.68* 0.83 1.03 PHOS 3.3 1.7* 1.9* Microbiology: None ASSESSMENT: Charlene Harmon is a 69 y.o. female with history significant for hypertension, hyperlipidemia, PVD, CKD, bilateral renal artery stenosis s/p R bypass in 2019, infrarenal AAA, CHF (EF 59% 05/2019), and hysterectomy who presents with findings concerning for a partial SBO. She failed nonoperative m anagement, and was taken to the OR for an ex-lap. She is now 4 Days Post-Op s/p lysis of adhesions. She is recovering appropriately and feels better. Her NGT was removed 2 days ago, she is still passing flatus, tolerating CLD will plan to advance to regular diet. PLAN - Will advance her regular diet -HLIV -Cont with pain control regimen. # NEURO: Pain control with tylenol scheduled and dilaudid PRN , gabapentin PO # CV: Amlodipine 5mg daily, carvedilol 12.5mg PO BID . # PULM: IS, Sat well on RA # GI: Regular diet # FEN: Regular diet # : Voiding adequately # ENDO: HIRAL # ID: HIRAL # PPX: Protonix 40mg IV # LINES: PIV # DISPO: Floor status, Attempt Cardiopulmonary Resuscitation - Inpatient Indu Hinojosa MD Acute Care Surgery Team pager [phone] Attending Addendum I have seen and examined the patient, I have reviewed the vitals, labs and pertinent imaging. I havediscussed the documentation above and agree, with the following comments: Doing well, tolerated breakfast this morning. Still feels somewhat bloated but passing gas and having bowel movements (had one prior to my visit). Will continue regular diet today to ensure that she tolerates it, if she does anticipate possible discharge tomorrow. Discussed with her that she is able to shower, she can rinse and pat dry the incision - no soaking the wound, and upon discharge, no bath/hot tub/etc. All questions answered. Judy Casper MD [phone] Alfredo Causey MD - 04/29/2020 9:32 AM EST Acute Care Surgery Daily Progress Note ID: Charlene Harmon is a 69 y.o. female presenting with small bowel obstruction who failed non operativemanagement. She is now 3 Days Post-Op s.p exlap with lysis of adhesion. 24hr events/Subjective: ?? No acute events overnight ?? Yesterday passed clamp trial, NGT removed. Started on sips and chips ?? Continues to pass flatus, no BM yet ?? Pain well controlled O: Last value Range last 24hrs Temperature Temp: 36.6 ??C (97.9 ??F) Temp: [36.5 ??C (97.7 ??F)-37.1 ??C (98.8 ??F)] Heart Rate Heart Rate: 57 Heart Rate: [57] Blood Pressure BP: 148/65 BP: (140-177)/(64-82) Respiratory Rate Resp: 16 Resp: [16-17] SpO2 SpO2: 93 % SpO2: [91 %-94 %] 04/28 0701 - 04/29 0700 In: 1817 [I.V.:1787] Out: 400 [Urine:400] Physical Exam: GEN: Resting comfortably in bed, pleasant, conversant, NAD. HEENT: Normocephalic, atraumatic, anicteric sclerae CHEST: No increased work of breathing CV: Regular rate. Well perfused. ABD: Soft, less distended. incision clean and intact EXTR: Moving spontaneously. No edema SKIN: Warm and dry. NEURO: Alert and follows commands. Labs: Recent Labs 04/29/2013804/28/2044404/27/20219 WBC 12.4* 13.3* 7.8 HGB 12.2 12.7 14.0 HCT 37.8 39.2 44.1 PLATELET 200 242 294 Recent Labs 04/29/2013804/28/2044404/27/20219 NA 136 143 145 K 4.1 3.9 3.7 CL 108* 109* 107 CO2 21* 23 26 BUN 23* 27* 34* CREATININE 1.41* 1.41* 1.61* GLUCOSE 101 120 135 CALCIUM 7.4* 8.0* 8.8 MAGNESIUM 0.83 1.03 0.95 PHOS 1.7* 1.9* 3.3 Microbiology: None ASSESSMENT: Charlene Harmon is a 69 y.o. female with history significant for hypertension, hyperlipidemia, PVD, CKD, bilateral renal artery stenosis s/p R bypass in 2019, infrarenal AAA, CHF (EF 59% 05/2019), and hysterectomy who presents with findings concerning for a partial SBO. She failed nonoperative m anagement, and was taken to the OR for an ex-lap. She is now 3 Days Post-Op s/p lysis of adhesions. She is recovering appropriately and feels better. Her NGT was removed yesterday, she is still passingflatus will allow for clears. PLAN - Will advance her to clear liquid diet with a 1L volume restriction -Cont with mIVF until tolerating adequate PO intake. -Cont with pain control regimen. # NEURO: Pain control with tylenol scheduled and dilaudid PRN , gabapentin PO, Zofran IV for nausea. # CV: Amlodipine 5mg daily, carvedilol 12.5mg PO BID . # PULM: IS, Sat well on RA # GI: Clear Liquid; 1000 mL FLUID # FEN: D5 1/2NS @ 75cc/hr, will d/c once pt is taking in 500cc PO. # : Voiding adequately # ENDO: HIRAL # ID: HIRAL # PPX: Protonix 40mg IV # LINES: PIV # DISPO: Floor status, Attempt Cardiopulmonary Resuscitation - Inpatient Alfredo Causey MD Acute Care Surgery Team pager [phone] Alfredo Causey MD - 04/28/2020 9:37 AM EST Acute Care Surgery Daily Progress Note ID: Charlene Harmon is a 69 y.o. female presenting with small bowel obstruction who failed non operativemanagement. She is now 2 Days Post-Op s.p exlap with lysis of adhesion. 24hr events/Subjective: ?? No acute events overnight ?? NGT output 400cc for 24 hrs ?? Whitaker removed yesterday, voiding adequately ?? Reports some discomfort with coughing, but otherwise feels well O: Last value Range last 24hrs Temperature Temp: 36.9 ??C (98.4 ??F) Temp: [36.7 ??C (98.1 ??F)-37.2 ??C (99 ??F)] Heart Rate Heart Rate: 76 Heart Rate: [76-83] Blood Pressure BP: 178/79 BP: (150-178)/(62-79) Respiratory Rate Resp: 18 Resp: [16-18] SpO2 SpO2: 90 % SpO2: [89 %-93 %] 04/27 700 - 04/28 07 In: 2272 [I.V.:1942] Out: 1125 [Urine:725] Physical Exam: GEN: Resting comfortably in bed, pleasant, conversant, NAD. HEENT: Normocephalic, atraumatic, anicteric sclerae, NGT in place with thin bilious output CHEST: No increased work of breathing CV: Regular rate. Well perfused. ABD: Soft, less distended. Dressing removed. incision clean and intact EXTR: Moving spontaneously. No edema SKIN: Warm and dry. NEURO: Alert and follows commands. Labs: Recent Labs 04/28/20 0445 01/01/21904/26/20425 WBC 13.3* 7.8 7.5 HGB 12.7 14.0 14.6 HCT 39.2 44.1 44.8 PLATELET 242 294 300 Recent Labs 04/28/2044404/27/2021904/26/206 NA 143 145 142 K 3.9 3.7 3.4* CL 109* 107 103 CO2 23 26 26 BUN 27* 34* 36* CREATININE 1.41* 1.61* 1.76* GLUCOSE 120 135 173 CALCIUM 8.0* 8.8 9.2 MAGNESIUM 1.03 0.95 1.13* PHOS 1.9* 3.3 3.5 Microbiology: None ASSESSMENT: Charlene Harmon is a 69 y.o. female with history significant for hypertension, hyperlipidemia, PVD, CKD, bilateral renal artery stenosis s/p R bypass in 2018, infrarenal AAA, CHF (EF 59% 05/2019), and hysterectomy who presents with findings concerning for a partial SBO. She failed nonoperative m anagement, and was taken to the OR for an ex-lap. She is now 2 Days Post-Op s/p lysis of adhesions. She is recovering appropriately and feels better PLAN - Given the low NGT output, we will clamp the NGT for a clamp trial. - If Charlene Harmon passes the clamp trial will start on clears. -Cont with mIVF until tolerating adequate PO intake. -Cont with pain control regimen. # NEURO: Pain control with tylenol scheduled and dilaudid PRN , gabapentin PO, Zofran IV for nausea. # CV: Amlodipine 5mg daily, carvedilol 12.5mg PO BID . # PULM: IS, Sat well on RA # GI: NPO diet (Give Meds) # FEN: D5 1/2NS @ 75cc/hr # : Voiding adequately # ENDO: HIRAL # ID: HIRAL # PPX: Protonix 40mg IV # LINES: PIV # DISPO: Floor status, Attempt Cardiopulmonary Resuscitation - Inpatient Alfredo Causey MD Acute Care Surgery Team pager [phone] Pee Monreal MD - 04/27/2020 11:14 AM EST Acute Care Surgery Daily Progress Note ID: Charlene Harmon is a 69 y.o. female presenting with small bowel obstruction who failed non operativemanagement. She is now 1 Day Post-Op s.p exlap with lysis of adhesion. 24hr events: ?? Increased abdominal pain, with nausea dispite NGT decompression ?? Failure of contrast to progress on plain films ?? Taken to OR for ex-lap, found to have an adhesive band, which was lysed. Subjective: Feels better today, pain better controlled, nausea resolved. O: Last value Range last 24hrs Temperature Temp: 36.8 ??C (98.2 ??F) Temp: [36.6 ??C (97.9 ??F)-37.5 ??C (99.5 ??F)] Heart Rate Heart Rate: 64 Heart Rate: [64-76] Blood Pressure BP: 152/69 BP: (152-191)/(54-90) Respiratory Rate Resp: 15 Resp: [10-20] SpO2 SpO2: (!) 89 % SpO2: [88 %-100 %] 04/26 0701 - 04/27 0700 In: 2907 [I.V.:2817] Out: 1525 [Urine:775] Physical Exam: GEN: Resting comfortably in bed, pleasant, conversant, NAD. HEENT: Normocephalic, atraumatic, anicteric sclerae, NGT in place with thin bilious output CHEST: No increased work of breathing CV: Regular rate. Well perfused. ABD: Soft, less distended. Dressing clean, dry and intact EXTR: Moving spontaneously. No edema SKIN: Warm and dry. NEURO: Alert and follows commands. Labs: Recent Labs 04/27/2021904/26/2042504/25/2030 04/24/201999 WBC 7.8 7.5 11.5* 8.3 HGB 14.0 14.6 14.0 14.4 HCT 44.1 44.8 42.6 43.5 PLATELET 294 300 336 317 PT -- -- -- 12.7* INR -- -- -- 1.1 PTT -- -- -- 29 Recent Labs 04/27/2021904/26/2042504/25/2030 04/24/201999 NA 145 142 142 143 K 3.7 3.4* 3.8 3.9 CL 107 103 102 106 CO2 26 26 25 25 BUN 34* 36* 38* 30* CREATININE 1.61* 1.76* 2.19* 2.19* GLUCOSE 135 173 154 130 CALCIUM 8.8 9.2 9.4 9.0 MAGNESIUM 0.95 1.13* 1.03 0.94 PHOS 3.3 3.5 4.0 3.8 Microbiology: None ASSESSMENT: Charlene Harmon is a 69 y.o. female with history significant for hypertension, hyperlipidemia, PVD, CKD, bilateral renal artery stenosis s/p R bypass in 2019, infrarenal AAA, CHF (EF 59% 05/2019), and hysterectomy who presents with findings concerning for a partial SBO. She failed nonoperative m anagement, and was taken to the OR for an ex-lap. She is now 1 Day Post-Op s/p lysis of adhesions. She is recovering appropriately and feels better PLAN -Will keep NPO with NGT decompression today - D/c whitaker, due to void at 4pm. -Cont with IVF -Cont with pain control regimen. # NEURO: Pain control with tylenol scheduled and dilaudid PRN , gabapentin PO, Zofran IV for nausea. # CV: Amlodipine 5mg daily, carvedilol 12.5mg PO BID . # PULM: IS, Sat well on RA # GI: NPO diet (Give Meds) # FEN: D5 1/2NS @ 75cc/hr # : D/c whitaker, due to void at 16:00 # ENDO: HIRAL # ID: HIRAL # PPX: Protonix 40mg IV, # LINES: PIV # DISPO: Floor status, Attempt Cardiopulmonary Resuscitation - Inpatient Alfredo Causey MD Acute Care Surgery Team pager [phone] SURGICAL ATTENDING NOTE: Pt seen and examined with the resident staff on AM rounds and I agree with the above note and plan with the following additions/modifications. Patient with worsening exam last night such that she was taken to the operating room for urgent exploration with lysis of a single adhesion causing a high-grade small bowel obstruction. No bowel resection was required. Patient feels much improved this morning. NG tube output is still relatively high with no return of bowel function as of yet. Her abdomen is less distended and appropriately tender. Laboratory studies within normal limits. Plan is to continuewith NG tube decompression and bowel rest along with IV fluid resuscitation. We will remove the NG tube once she is return of bowel function. Otherwise noted above. Ilana Mcleod MD - 04/27/2020 4:54 AM EST Post-op Check Patient Name: Charlene Harmon Patient Age: 69 y.o. Attending Physician: Edwin Ayala MD Charlene Harmon is a 69 y.o. female s/p Procedure: exploratory laparotomy demonstrating adhesive band off jejunum wrapped around terminal ileum causing high grade obstruction. Lysis of adhesions performed,bowel viable. @EXPLORATORY LAPAROTOMY, WITH/WITHOUT BIOPSY(S) (WRVU 12.54) S: Mrs. Harmon feels overall quite well. Her abdominal pain is present but improved and tolerable. Shedenies chest pain, shortness of breath, nausea, headache, dizziness, or leg pain. O: Last value Range last 24hrs Temperature Temp: 36.8 ??C (98.2 ??F) Temp: [36.6 ??C (97.9 ??F)-37.5 ??C (99.5 ??F)] Heart Rate Heart Rate: 64 Heart Rate: [64-76] Blood Pressure BP: 166/64 BP: (158-191)/(54-90) Respiratory Rate Resp: 15 Resp: [10-20] SpO2 SpO2: 97 % SpO2: [88 %-100 %] I/O this shift: In: 2019 [I.V.:1960; NG/GT:60] Out: 825 [Urine:775; Blood:50] General: NAD, lying comfortably in bed ?HEENT:??NC in place to nares ?CVS: RRR ?Pulm:??breathing comfortably on 2L NC, CTAB, no wheezes ?Abd: soft,??non-distended, tender to palpation worst in LLQ, IR drain in place on left draining murky purulent material, holding good suction ?Extremity: no cyanosis or edema?Skin:??warm, dry ?Neuro:??alert, oriented, no focal deficits ?Incision: midline incision c/d/i, no surrounding erythema or ecchymoses Recent Labs 04/27/2021904/26/2042504/25/20 0730 04/24/201999 WBC 7.8 7.5 11.5* 8.3 HGB 14.0 14.6 14.0 14.4 HCT 44.1 44.8 42.6 43.5 PLATELET 294 300 336 317 PT -- -- -- 12.7* INR -- -- -- 1.1 PTT -- -- -- 29 Recent Labs 04/27/2021904/26/2042504/25/20 0730 04/24/201999 NA 145 142 142 143 K 3.7 3.4* 3.8 3.9 CL 107 103 102 106 CO2 26 26 25 25 BUN 34* 36* 38* 30* CREATININE 1.61* 1.76* 2.19* 2.19* GLUCOSE 135 173 154 130 CALCIUM 8.8 9.2 9.4 9.0 MAGNESIUM 0.95 1.13* 1.03 0.94 PHOS 3.3 3.5 4.0 3.8 A/P: Charlene Harmon is a 69 y.o. female patient s/p exploratory laparotomy with lysis of adhesions for small bowel obstruction. She is currently in stable condition and recovering well after surgery. - Appropriate for Floor status - NGT in place to suction, NPO - Pain well controlled - Hemodynamically stable within normal range, UOP adequate - Continue post-op plan Ilana Mcleod MD [id number] Leah Sterling RN - 04/27/2020 2:00 AM EST 0149- Pt arrived to PACU 14 from OR, attached to monitors and and alarms set appropriate for pt, incision c/d/i, NGT in place to suction, whitaker in place draining clear yellow urine. Pt denies any pain at this time 0250- Anesthesia okay with pt's BP's elevated at this time 0300- Pt has met d/c criteria from the PACU, report given to LAWRENCE Farrell on Edwin Hinkle MD - 04/27/2020 12:06 AM EST Patient Name: Charlene Harmon Patient Age: 69 y.o. Birthdate: 1950 Admit date: 04/24/2020 Attending Physician: Edwin Ayala MD Surgery Staff Note Admitted two days ago with high grade SBO More distended now with NGT in place and focal left sided abdominal pain Hemodynamically stable but increased pain concerning. Awake and alert NGT in place No resp distress Not tachycardic Abdomen more distended, focal marked tenderness on the left side but not peritoneal Feel this is most likely adhesive disease related to prior hysterectomy Plan to go the the OR tonight for exploration Discussed with patient and her Risks bleeding, infection, need for bowel resection or colostomy discussed. She understands and agrees to proceed.. All questions answered. Mod 57 25 minutes spent in review, exam, documentation and discussion with patient and her by phone. Orville Jerome MD - 04/26/2020 10:00 AM EST Acute Care Surgery Daily Progress Note ID: Charlene Harmon is a 69 y.o. female presenting with small bowel obstruction . Procedures: * No surgery found * Secondary Issues: Past Medical History: Diagnosis Date ??? AAA (abdominal aortic aneurysm) [id number] angiogram; 3.2 cm infrarenal ??? Constipation ??? Dyslipidemia ??? Hypertension ??? Insomnia ??? Peripheral vascular disease ??? Renal artery stenosis R; per 2010 angiogram ??? SBO (small bowel obstruction) 24hr events: ?? Has been NPO diet (Give Meds) ?? C.o nausea overnight. ?? NGT -1L /24 hrs ?? Has been passing gas ?? KUB at 0800 with contrast remains in small bowel with persistent dilation of bowel loops ?? WBC 7.5 from 11.5 Subjective: Feels nauseated. Has mild abdominal pain. Feels bloated. O: Last value Range last 24hrs Temperature Temp: 36.7 ??C (98.1 ??F) Temp: [36.7 ??C (98.1 ??F)-37.1 ??C (98.8 ??F)] Heart Rate Heart Rate: 76 Heart Rate: -- Blood Pressure BP: 159/77 BP: (159-194)/(72-90) Respiratory Rate Resp: 17 Resp: [16-17] SpO2 SpO2: 93 % SpO2: [93 %-96 %] 04/25 701 - 04/26 700 In: 2120 [I.V.:2060] Out: 1550 [Urine:900] Physical Exam: GEN: Resting comfortably in bed, pleasant, conversant, NAD. HEENT: Normocephalic, atraumatic, anicteric sclerae CHEST: No increased work of breathing CV: Regular rate. Well perfused. ABD: Soft, distended, tympanitic. TTP, no rebound tenderness. EXTR: Moving spontaneously. No edema SKIN: Warm and dry. NEURO: Alert and follows commands. Labs: Recent Labs 04/26/2042504/25/2072904/24/201999 WBC 7.5 11.5* 8.3 HGB 14.6 14.0 14.4 HCT 44.8 42.6 43.5 PLATELET 300 336 317 PT -- -- 12.7* INR -- -- 1.1 PTT -- -- 29 Recent Labs 04/26/2042504/25/2072904/24/201999 NA 142 142 143 K 3.4* 3.8 3.9 CL 103 102 106 CO2 26 25 25 BUN 36* 38* 30* CREATININE 1.76* 2.19* 2.19* GLUCOSE 173 154 130 CALCIUM 9.2 9.4 9.0 MAGNESIUM 1.13* 1.03 0.94 PHOS 3.5 4.0 3.8 Microbiology: None New imaging: EXAMINATION: XR ABDOMEN 1 VIEW (GENERIC) ?? CLINICAL HISTORY: Contrast administered at IN, assess contrast progression ? TECHNIQUE: AP portable supine abdomen ?? COMPARISON: CT scan of the chest, abdomen and pelvis 04/24/2020. ?? FINDINGS: Contrast is present in the stomach and faintly in multiple dilated loops of small bowel. There is a paucity of gas in the colon. No large bowel contrast seen. The findings are consistent with small bowel obstruction. There is a surgical clip projected over the right upper quadrant. The lung bases are clear. ? IMPRESSION Contrast is present in the stomach and faintly in numerous loops of dilated small bowel but not in the decompressed colon consistent with small bowel obstruction. ?? Thank you for letting us participate in the care of this patient. For questions regarding this report, please contact the number below. Electronically signed by: Spike To MD, [facility] ([phone]), at 04/25/2020 8:08 AM ASSESSMENT: Charlene Harmon is a 69 y.o. female with history significant for hypertension, hyperlipidemia, PVD, CKD, bilateral renal artery stenosis s/p R bypass in 2018, infrarenal AAA, CHF (EF 59% 05/2019), and hysterectomy who presents with findings concerning for a partial SBO. The transition point is u nable to be visualized but appears likely to be in the lower abdomen. This is likely secondary to adhesions from her prior hysterectomy. Overall, has been hemodynamically stable. Has been passing gas and had 1 small BM. Has been nauseated overnight with 4 emesis. KUB this AM also shows contrast present in stomach and SMO. Abdominal exam distended and tympanitic. PLAN -Will keep NPO, -Cont with NGT to LCWS. Will repeat KUB at 1600 -Cont with IVF -Cont with pain control regimen. If SBO symptoms persist, with no movement of contrast to colon, might require OR intervention. # NEURO: Pain control with tylenol scheduled and dilaudid PRN , gabapentin PO, Zofran IV for nausea. # CV: Amlodipine 5mg daily, carvedilol 12.5mg PO BID . # PULM: IS, Sat well on RA # GI: NPO diet (Give Meds) # FEN: LR at 75cc/hr until tolerating PO # : Voids independently # ENDO: HIRAL # ID: HIRAL # PPX: Protonix 40mg IV, # LINES: PIV # DISPO: Floor status, likely discharge to home in 2-3 days, Attempt Cardiopulmonary Resuscitation -Inpatient Orville Elaine MD, PGY1 Acute Care Surgery Team pager [phone] Kamala Osullivan, RD - 04/25/2020 12:30 PM EST Nutrition Initial Note Patient admitted with SBO, relevant medical history includes HTN, hyperlipidemia, PVD, CKD, bilateral renal artery stenosis s/p R bypass in 2019, infrarenal AAA, CHF (EF 59% 05/2019), and hysterectomy Charlene Harmon is a 69 y.o. female Reason for intervention: Malnutrition evaluation Nutrition Recommendations: - when diet advances, encourage good PO intake - Per pt, typically eats one big meal per day: ensure this meal provides majority of needs - Provide ensure clear BID when diet advances - trend weight. Bi-weekly weights much appreciated - recommend daily nephrocap Active Orders Diet NPO diet (Give Meds) Frequency: Effective Now Number of Occurrences: Until Specified Lab Results Component Value Date NA 142 04/25/2020 K 3.8 04/25/2020 CL 102 04/25/2020 CO2 25 04/25/2020 BUN 38 (H) 04/25/2020 CREATININE 2.19 (H) 04/25/2020 GFRAA 23 (L) 02/08/2020 ESTGFR 22 (L) 04/25/2020 MAGNESIUM 1.03 04/25/2020 CALCIUM 9.4 04/25/2020 PHOS 4.0 04/25/2020 AST 14 04/24/2020 ALT 7 04/24/2020 ALKPHOS 80 04/24/2020 BILITOT 0.4 04/24/2020 BILIDIR 0.1 04/24/2020 IRON 48 05/24/2019 No results found for: POCGLU Skin Status: Shift Pressure Injury Prevention Occiput: No Injury Thoracic Spine: No Injury Sacral: No Injury Ischial - left: No Injury Ischial - right: No Injury Heel - left: No Injury Heel - right: No Injury Elbow - left: No Injury Elbow - right: No Injury Device Sites: O2 sat monitor Relevant medications: levothyroxine, protonix, lactated ringers infusion, others noted Last Bowel Movement: 04/22/20 Admit Weight: 42.64 kg Estimated body mass index is 18.36 kg/m?? as calculated from the following: Height as of this encounter: 152.4 cm (5'). Weight as of this encounter: 42.6 kg (94 lb). [place] Body Weight: 53.6kg / 118 lbs for BMI at least 23kg/m^2 (the Academy of [employer] and Dietetics identifies BMI of <23.0kg/m^2 as underweight for >65y/o). Usual Body Weight: per pt, 94 - 97 Wt Readings from Last 10 Encounters: 04/24/20 42.6 kg (94 lb) 04/18/20 45.4 kg (100 lb) 02/09/20 45.5 kg (100 lb 3.2 oz) 02/08/20 44.9 kg (99 lb) 11/25/19 44.5 kg (98 lb 3.2 oz) 10/17/19 43.6 kg (96 lb 3.2 oz) 10/05/19 42.2 kg (93 lb) 06/21/19 41.3 kg (91 lb) 07/01/19 41.3 kg (91 lb) 05/24/19 42.6 kg (94 lb) Assessment: Estimated needs: Calories: 1278 - 1500 (30 - 35 kcal/kg) - weight gain Protein: 51 grams (1.2 g/kg) Nutrition Focused Physical Exam (NFPE): Not performed - pt kindly declined at this time, feeling bloated and uncomfortable with slight nausea Nutrition intake and intake history/Interview: Visited pt for malnutrition evaluation. Pt appeared thin and slight of build. Per pt, and corroborated by weight hx, pt typically around 95 lbs. She denies any recent wt loss. Per previous RD notes, pt has been slowly gaining wt after previous hospital adm ission last year(dx w/pcm), and for potential kidney transplant (note 11/25/19). Per pt, she typically eats only one meal per day, and has a good appetite at home. Her last eating occasion was 04/23 supper. Will f/u with pt to disc diet adequacy, nutrition goals, and ONS, once her diet advances or whenshe is in less obvious discomfort. Protein-calorie Malnutrition: Not enough data to assess ([place], JPEN J Parenteral Enteral Nutr. 2011; 36(3): 273-83) Nutrition to continue to follow up while inpatient Kamala Osullivan RD Pager #: [phone] Orville Elaine MD - 04/25/2020 11:09 AM EST Acute Care Surgery Daily Progress Note ID: Charlene Harmon is a 69 y.o. female presenting with small bowel obstruction . Procedures: * No surgery found * Secondary Issues: Past Medical History: Diagnosis Date ??? AAA (abdominal aortic aneurysm) [id number] angiogram; 3.2 cm infrarenal ??? Constipation ??? Dyslipidemia ??? Hypertension ??? Insomnia ??? Peripheral vascular disease ??? Renal artery stenosis R; per 2009 angiogram ??? SBO (small bowel obstruction) 24hr events: ?? Has been NPO diet (Give Meds) ?? Emesis x4 overnight. ?? Has been passing gas ?? BM x1 . ?? KUB at 0600 with contrast remain in stomach. Subjective: Feels nauseated. Has had a couple of small emesis this AM. Has mild abdominal pain. Feels bloated. O: Last value Range last 24hrs Temperature Temp: 36.6 ??C (97.9 ??F) Temp: [36.6 ??C (97.9 ??F)-37.1 ??C (98.7 ??F)] Heart Rate Heart Rate: 76 Heart Rate: [64-76] Blood Pressure BP: 187/75 BP: (128-187)/(54-111) Respiratory Rate Resp: 16 Resp: [16-21] SpO2 SpO2: 99 % SpO2: [94 %-99 %] 04/24 0701 - 04/25 0700 In: 2 Out: - Physical Exam: GEN: Resting comfortably in bed, pleasant, conversant, NAD. HEENT: Normocephalic, atraumatic, anicteric sclerae CHEST: No increased work of breathing CV: Regular rate. Well perfused. ABD: Soft, distended, tympanitic. TTP, no rebound tenderness. EXTR: Moving spontaneously. No edema SKIN: Warm and dry. NEURO: Alert and follows commands. Labs: Recent Labs 04/25/20 0704/24/201999 WBC 11.5* 8.3 HGB 14.0 14.4 HCT 42.6 43.5 PLATELET 336 317 PT -- 12.7* INR -- 1.1 PTT -- 29 Recent Labs 04/25/20 0730 04/24/201999 NA 142 143 K 3.8 3.9 CL 102 106 CO2 25 25 BUN 38* 30* CREATININE 2.19* 2.19* GLUCOSE 154 130 CALCIUM 9.4 9.0 MAGNESIUM 1.03 0.94 PHOS 4.0 3.8 Microbiology: None New imaging: EXAMINATION: XR ABDOMEN 1 VIEW (GENERIC) ?? CLINICAL HISTORY: Contrast administered at IN, assess contrast progression ? TECHNIQUE: AP portable supine abdomen ?? COMPARISON: CT scan of the chest, abdomen and pelvis 04/24/2020. ?? FINDINGS: Contrast is present in the stomach and faintly in multiple dilated loops of small bowel. There is a paucity of gas in the colon. No large bowel contrast seen. The findings are consistent with small bowel obstruction. There is a surgical clip projected over the right upper quadrant. The lung bases are clear. ? IMPRESSION Contrast is present in the stomach and faintly in numerous loops of dilated small bowel but not in the decompressed colon consistent with small bowel obstruction. ?? Thank you for letting us participate in the care of this patient. For questions regarding this report, please contact the number below. Electronically signed by: Spike To MD, [facility] ([phone]), at 04/25/2020 8:08 AM ASSESSMENT: Charlene Harmon is a 69 y.o. female with history significant for hypertension, hyperlipidemia, PVD, CKD, bilateral renal artery stenosis s/p R bypass in 2019, infrarenal AAA, CHF (EF 59% 05/2019), and hysterectomy who presents with findings concerning for a partial SBO. The transition point is u nable to be visualized but appears likely to be in the lower abdomen. This is likely secondary to adhesions from her prior hysterectomy. Overall, has been hemodynamically stable. Has been passing gas and had 1 small BM. Has been nauseated overnight with 4 emesis. KUB this AM also shows contrast present in stomach and SMO. Abdominal exam distended and tympanitic. PLAN -Will keep NPO, -Place NGT to LCWS to decompress bowel. -Cont with IVF -Will repeat contrast challenge tmr. -Cont with pain control regimen. # NEURO: Pain control with tylenol scheduled and dilaudid PRN , gabapentin PO, Zofran IV for nausea. # CV: Amlodipine 5mg daily, carvedilol 12.5mg PO BID . # PULM: IS, Sat well on RA # GI: NPO diet (Give Meds) # FEN: LR at 75cc/hr until tolerating PO # : Voids independently # ENDO: HIRAL # ID: HIRAL # PPX: Protonix 40mg IV, # LINES: PIV # DISPO: Floor status, likely discharge to home in 2-3 days, Attempt Cardiopulmonary Resuscitation -Inpatient Orville Elaine MD, PGY1 Acute Care Surgery Team pager [phone] Edwin Ayala MD - 04/24/2020 10:39 PM EST Patient Name: Charlene Harmon Patient Age: 69 y.o. Birthdate: 1950 Admit date: 04/24/2020 Attending Physician: Aime Kebede MD General Surgery - Admission Note Patient Name: Charlene Harmon : [id number] MR#: [id number] 04/24/2020 Hospital Day 0 days Problem List: Active Hospital Problems Diagnosis ??? SBO (small bowel obstruction) Resolved Hospital Problems No resolved problems to display. Active Non-Hospital Problems Diagnosis ??? Pulmonary hypertension ??? Pre-transplant evaluation for CKD (chronic kidney disease) ??? Uncontrolled hypertension ??? Anemia of chronic renal failure, stage 4 (severe) ??? Chest pain ??? Hypertensive urgency ??? Systolic HF (heart failure) ??? CKD (chronic kidney disease) stage 5, GFR less than 15 ml/min ??? Severe protein-calorie malnutrition ??? Hypertensive urgency ??? Renal artery stenosis ??? Abdominal aortic aneurysm (AAA) without rupture ??? Viral hepatitis B acute Past Medical and Surgical History: Past Medical History: Diagnosis Date ??? AAA (abdominal aortic aneurysm) [id number] angiogram; 3.2 cm infrarenal ??? Constipation ??? Dyslipidemia ??? Hypertension ??? Insomnia ??? Peripheral vascular disease ??? Renal artery stenosis R; per 2009 angiogram ??? SBO (small bowel obstruction) Past Surgical History: Procedure Laterality Date ??? HYSTERECTOMY ? ? PRO CATHETER 1ST ORDER W/WO ART PUNCT/FLUORO/S&I BILATERAL Bilateral 09/01/[address] (FIRST-ORDER), MAIN RENAL ART & ANY ACC, W/S&I; LOREN (WRVU 6.99) performedby Regan Chen MD at [facility] MAIN OR ??? PRO UPPER GI ENDOSCOPY, DIAGNOSTIC 01/20/2014 EGD, UPPER GI ENDOSCOPY performed by Corby Cano MD at [facility] ENDOSCOPY ??? PRO UPPER GI ENDOSCOPY, DIAGNOSTIC N/A 07/28/2017 EGD, UPPER GI ENDOSCOPY performed by Snow Liao MD at [facility] ENDOSCOPY ??? PRO VEIN BYPASS GRAFT, AORTOILIOFEMORAL N/A 09/07/2018 @BYPASS GRAFT, AORTOILIAC W\ VEIN CONDUIT (WRVU 41.88) performed by Isac Moody MD at [facility] MAIN OR Allergies: No Known Allergies Prior to Admission Medications: (Not in a hospital admission) Family History: Family History Problem Relation Age of Onset ??? Hypertension Mother ??? Cervical Cancer Mother ??? Chronic Obstructive Pulmonary Disease Father ??? Hypertension Sister Current Inpatient Medications: Current Facility-Administered Medications Ordered in [facility] Medication Dose Route Frequency Provider Last Rate Last Dose ??? lactated ringers infusion 75 mL/hr Intravenous Continuous Ren Cuevas MD ??? acetaminophen (Ofirmev) (1000 mg/100 mL) infusion 1,000 mg 1,000 mg Intravenous Q6H WILFRED Ren Cuevas MD ??? HYDROmorphone (Dilaudid) 0.5 mg/0.5 mL injection 0.3 mg 0.3 mg Intravenous Q3H PRN Tamar Cuevas MD Current Outpatient Medications Ordered in [facility] Medication Sig Dispense Refill ??? carvediloL (Coreg) [...] (E.C.) Take 81 mg by mouth daily. Social History and Habits: Social History Socioeconomic History ??? Marital status: Spouse name: Not on file ??? Number of children: Not on file ??? Years of education: Not on file ??? Highest education level: Not on file Occupational History ??? Not on file Social Needs ??? Financial resource strain: Not on file ??? Food insecurity Worry: Not on file Inability: Not on file ??? Transportation needs Medical: Not on file Non-medical: Not on file Tobacco Use ??? Smoking status: Former Smoker Packs/day: 0.50 Years: 45.00 Pack years: 22.50 Types: Cigarettes Quit date: 2007 Years since quittin.0 ??? Smokeless tobacco: Never Used ??? Tobacco comment: smoked for ~45 years up to 1 ppd at max, quit ~1999 Substance and Sexual Activity ??? Alcohol use: Yes Comment: a few glasses of wine, rarely 4 times a year ??? Drug use: No ??? Sexual activity: Yes Partners: Male Lifestyle ??? Physical activity Days per week: Not on file Minutes per session: Not on file ??? Stress: Not on file Relationships ??? Social connections Talks on phone: Not on file Gets together: Not on file Attends advent service: Not on file Active member of club or organization: Not on file Attends meetings of clubs or organizations: Not on file Relationship status: Not on file ??? Intimate partner violence Fear of current or ex partner: Not on file Emotionally abused: Not on file Physically abused: Not on file Forced sexual activity: Not on file Other Topics Concern ??? Abuse or Threat: [...] Rodolfo of 50 years. 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 No history of heavy etoh use 2 children healthy ID: 69 y.o. [place] [facility] [place] History of Present Illness: HPI 69 yo female s/p renal artery bypass and AAA as well as hysterectomy presents with 24 hour hx ofcrampy mid abdominal pain associated With nausea and emesis Went to OSH where CT demonstrated distal small bowel obstruction Has had two loose stools today and passed a small amount of flatus Has not had increasing distension No emesis since 1 am Review of Systems: Review of Systems Physical Exam: Last Set of Vitals and range of vitals over past 24 hours: Last value Range last 24 hrs Temperature Temp: 36.9 ??C (98.4 ??F) Temp: [36.9 ??C (98.4 ??F)] Heart Rate Heart Rate: 76 Heart Rate: [64-76] Blood Pressure BP: 158/74 BP: (142-169)/(69-111) Respiratory Rate Resp: 16 Resp: [16-21] SpO2 SpO2: 97 % SpO2: [96 %-97 %] Physical Exam Awake alert pleasant woman Non icteric Thin appearing Lungs CTA Cor rrr no murmer Abd protuberant, soft, mildly tender, palpable loops of dilated small bowel No edema Awake alert, conversant Skin warm and well perfused Laboratory (Last 24 Hours): Recent Results (from the past 24 hour(s)) POCT urine dipstick Result Value Ref Range POC Sp [place] 1.015 1.002 - 1.030 POC pH, UA 5 5.0 - 8.5 POC Leuk, UA neg Negative - Negative POC Nitrite, UA neg Negative - Negative POC Protein, UA 500 Negative - Negative mg/dL POC Glucose, UA normal Normal - Normal mg/dL POC Ketone, UA negative Negative - Negative POC Urobil, UA negative 0.2 - 1.0 mg/dL POC Bili, UA negative Negative - Negative POC Blood, UA negative Negative - Negative mikie/uL Basic Metabolic Panel (non-fasting) Result Value Ref Range Glucose Lvl 130 65 - 199 mg/dL BUN 30 (H) 8 - 18 mg/dL Creatinine 2.19 (H) 0.70 - 1.20 mg/dL Sodium 143 135 - 145 mmol/L Potassium 3.9 3.5 - 5.0 mmol/L Chloride 106 98 - 107 mmol/L CO2 25 22 - 31 mmol/L Anion Gap 12 5 - 15 mmol/L Calcium 9.0 8.5 - 10.5 mg/dL Estimated GFR 22 (L) >=60 mL/min/1.73 m?? Hepatic Function Panel Result Value Ref Range Total Protein 6.8 6.1 - 8.0 gm/dL Albumin 3.9 3.2 - 5.2 gm/dL AST 14 0 - 30 unit/L ALT 7 0 - 30 unit/L Alk Phos 80 35 - 105 unit/L Total Bilirubin 0.4 0.2 - 1.3 mg/dL Bili, Direct 0.1 0.0 - 0.3 mg/dL Lipase Result Value Ref Range Lipase 19 0 - 60 unit/L Prothrombin Time Result Value Ref Range PT 12.7 (H) 9.4 - 12.5 sec INR 1.1 APTT Result Value Ref Range PTT 29 25 - 37 sec Magnesium Result Value Ref Range Magnesium 0.94 0.69 - 1.07 mmol/L Phosphorus Result Value Ref Range Phosphorus 3.8 2.5 - 4.5 mg/dL ABO/Rh Typing Result Value Ref Range ABORh Type A Pos Antibody screen Result Value Ref Range Ab Screen Interp Negative Expires at 2359 on: 04/27/2020 Hemogram Result Value Ref Range WBC 8.3 4.0 - 9.5 x10(3)/mcL RBC 4.87 4.00 - 5.21 x10(6)/mcL Hemoglobin 14.4 11.7 - 15.5 gm/dL Hematocrit 43.5 35.7 - 45.8 % MCV 89.3 82.6 - 94.4 fL MCH 29.6 27.1 - 32.0 pg MCHC 33.1 31.7 - 35.0 gm/dL Platelets 317 145 - 357 x10(3)/mcL RDWSD 44.7 37.0 - 46.0 fL RDWCV 13.7 11.5 - 14.1 % MPV 9.8 7.6 - 12.9 fL nRBC % Auto 0.0 % nRBC Abs Auto 0.000 0.000 - 0.000 x10(3)/mcL Differential, Automated Result Value Ref Range Neutrophils % 80.4 % Neutr Abs (ANC) 6.69 (H) 1.70 - 6.10 x10(3)/mcL Lymphocytes % 8.8 % Lymphocytes Abs 0.7 (L) 0.9 - 3.2 x10(3)/mcL Monocytes % 9.5 % Monocyte Abs 0.8 0.3 - 0.9 x10(3)/mcL Eosinophils % 0.1 % Eosinophils Abs 0.0 0.0 - 0.4 x10(3)/mcL Basophils % 0.7 % Basophils Abs 0.1 0.0 - 0.1 x10(3)/mcL Immature Gran % 0.50 % Blanca Gran Abs 0.04 0.00 - 0.04 x10(3)/mcL ABORH Recheck Status Result Value Ref Range ABORH Type Recheck Completed CTscan Dilated small bowel completely fluid filled, Obstruction appears to be distal Assessment/Management/Plan: 69 yo with at least partial SBO likely secondary to adhesions from hysterectomy. No evidence of intestinal ischemia or peritoneal signs. She appears clinically stable and I do not feel she need emergent operation. Cannot completely rule out distal small bowel or cecal tumor but would seem less likely IV fluids Hold on NGT unless more emesis Contrast challenge Hold on surgery for now [x] I saw and evaluated the patient. I reviewed Dr. Krishnamurthy note and agree with the findings and plans as documented EDWIN AYALA MD 04/24/2020 documented in this encounter H&P Notes Ren Cuevas MD - 04/24/2020 8:06 PM EST [facility] Department of Surgery Admission History and Physical HPI: This is a 69 y.o. female with medical history significant for hypertension, hyperlipidemia, PVD, CKD, bilateral renal artery stenosis s/p R bypass in 2018, infrarenal AAA, CHF (EF 59% 05/2019), andhysterectomy who presents with one day of abdominal pain and emesis. She reports that symptoms began yesterday evening when she felt a pressure in her epigastric region. When she woke up in the morning she felt nauseous and had four episodes of emesis during the morning. She then presented to [facility] for evaluation. A CT abdomen/pelvis was performed and concerning for asmall bowel obstruction. She was [place] [facility] [place]. On arrival she appears hemodynamically stable. Her abdomen is mildly tender but overall benign. She denies nausea at this time. She reports that she has been passing gas today and had a loose bowel movement this morning. Of note, she reports that she is constipated at baseline and often goes 3-4 days between bowel movements. PMH: Past Medical History: Diagnosis Date ??? AAA (abdominal aortic aneurysm) [id number] angiogram; 3.2 cm infrarenal ??? Constipation ??? Dyslipidemia ??? Hypertension ??? Insomnia ??? Peripheral vascular disease ??? Renal artery stenosis R; per 2010 angiogram PSH: Past Surgical History: Procedure Laterality Date ??? HYSTERECTOMY ? ? PRO CATHETER 1ST ORDER W/WO ART PUNCT/FLUORO/S&I BILATERAL Bilateral 09/01/[address] (FIRST-ORDER), MAIN RENAL ART & ANY ACC, W/S&I; LOREN (WRVU 6.99) performedby Regan Chen MD at [facility] MAIN OR ??? PRO UPPER GI ENDOSCOPY, DIAGNOSTIC 01/20/2014 EGD, UPPER GI ENDOSCOPY performed by Corby Cano MD at [facility] ENDOSCOPY ??? PRO UPPER GI ENDOSCOPY, DIAGNOSTIC N/A 07/28/2017 EGD, UPPER GI ENDOSCOPY performed by Snow Liao MD at [facility] ENDOSCOPY ??? PRO VEIN BYPASS GRAFT, AORTOILIOFEMORAL N/A 09/07/2018 @BYPASS GRAFT, AORTOILIAC W\ VEIN CONDUIT (WRVU 41.88) performed by Isac Moody MD at [facility] MAIN OR HOME MEDICATIONS: No current facility-administered medications on file prior to encounter. Current Outpatient Medications on File Prior to Encounter Medication Sig Dispense Refill ??? carvediloL (Coreg) [...] (E.C.) Take 81 mg by mouth daily. ALLERGIES: No Known Allergies FAMILY HISTORY: non-contributory in any family member SOCIAL HISTORY: Social History Socioeconomic History ??? Marital status: Spouse name: Not on file ??? Number of children: Not on file ??? Years of education: Not on file ??? Highest education level: Not on file Occupational History ??? Not on file Social Needs ??? Financial resource strain: Not on file ??? Food insecurity Worry: Not on file Inability: Not on file ??? Transportation needs Medical: Not on file Non-medical: Not on file Tobacco Use ??? Smoking status: Former Smoker Packs/day: 0.50 Years: 45.00 Pack years: 22.50 Types: Cigarettes Quit date: 2007 Years since quittin.0 ??? Smokeless tobacco: Never Used ??? Tobacco comment: smoked for ~45 years up to 1 ppd at [facility], quit ~1999 Substance and Sexual Activity ??? Alcohol use: Yes Comment: a few glasses of wine, rarely 4 times a year ??? Drug use: No ??? Sexual activity: Yes Partners: Male Lifestyle ??? Physical activity Days per week: Not on file Minutes per session: Not on file ??? Stress: Not on file Relationships ??? Social connections Talks on phone: Not on file Gets together: Not on file Attends advent service: Not on file Active member of club or organization: Not on file Attends meetings of clubs or organizations: Not on file Relationship status: Not on file ??? Intimate partner violence Fear of current or ex partner: Not on file Emotionally abused: Not on file Physically abused: Not on file Forced sexual activity: Not on file Other Topics Concern ??? Abuse or Threat: [...] Not Asked ??? Weight Concern Not Asked Social History Narrative , lives with Rodolfo of 50 years. 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 No history of heavy etoh use 2 children healthy ROS: As stated above, otherwise 10 systems negative Pertinent items are noted in HPI. PHYSICAL EXAM Temp: [36.9 ??C (98.4 ??F)] Heart Rate: [61] Resp: [16] BP: -- SpO2: [97 %] Heart Rate from SpO2: -- General: alert, no acute distress Head: Atraumatic, non cyanotic Cardiac: Regular rate Pulmonary: clear to auscultation bilaterally, no increased work of breathing on room air Abdominal: soft, nondistended, mildly tender to palpation in the lower quadrants, mildly tympanic topercussion, no peritoneal signs Neuro: grossly intact, follows commands, AAO x3. Extremities: Warm and well-perfused LABORATORY DATA Recent Labs 04/24/201999 WBC 8.3 HGB 14.4 PLATELET 317 NA 143 K 3.9 CL 106 CO2 25 BUN 30* CREATININE 2.19* MAGNESIUM 0.94 PHOS 3.8 GLUCOSE 130 LFT's Lab Results Component Value Date Alk Phos 80 04/24/2020 AST 14 04/24/2020 Albumin 3.9 04/24/2020 Bili, Direct 0.1 04/24/2020 Total Bilirubin 0.4 04/24/2020 ALT 7 04/24/2020 Total Protein 6.8 04/24/2020 Coags Lab Results Component Value Date INR 1.1 04/24/2020 PT 12.7 (H) 04/24/2020 PTT 29 04/24/2020 IMAGING: CT Abdomen/Pelvis IMPRESSION 1. No focal consolidation, pleural effusion or pneumothorax. 2. Nonobstructing renal calculus in the midpole left kidney measuring 2 to 3 mm. 3. Lack of oral contrast limits evaluation. 4. Diffusely dilated small bowel loops measuring up to 3.2 cm with nonvisualization of the transition point. However transition point is thought to be in the distal small bowel. Collapsed distal most portion of the terminal ileum and large bowel. 5. Oral contrast limits evaluation of the solid viscera and vasculature. 6. Redemonstration of the known thoracoabdominal aortic aneurysm measuring up to 5.4 x 4.1 cm as described. No definitive periaortic fat stranding or mesenteric haziness to suggest leak. These findingsare similar to the prior study dated 10/17/2019. Recommend Doppler ultrasound for further evaluation. IMPRESSION: Charlene Harmon is a 69 y.o. female with history significant for hypertension, hyperlipidemia, PVD, CKD, bilateral renal artery stenosis s/p R bypass in 2019, infrarenal AAA, CHF (EF 59% 05/2019), and hysterectomy who presents with findings concerning for a partial SBO. The transition point is u nable to be visualized but appears likely to be in the lower abdomen. This is likely secondary to adhesions from her prior hysterectomy. Overall her abdominal exam is benign and she appears clinically stable. PLAN: - Admit to general surgery, Dr. Ayala attending - NPO diet (Give Meds) - No indication for NG tube at this time as she denies nausea and is not vomiting. If emesis overnight, we will place an NG tube for decompression. - Will plan for contrast challenge to assess obstruction. - IVF: lactated ringers at 75cc/hr - Pain control: IV tylenol, dilaudid - DVT ppx: SCDs, SQH - Dispo: floor status Ren Cuevas MD Pager [phone] 04/24/2020 9:03 PM documented in this encounter ED Notes Ganesh Morales LNA - 04/24/2020 9:08 PM EST Performed blood lactate and results given to Tata Simmons, RN and sent to the lab. Aime Kebede MD - 04/24/2020 7:56 PM EST Attending Note HPI: Charlene Harmon is a 69 y.o. who presents to the ED Hx of AAA, CKD/ESRD, htn chol,CHF (EF 20%), copd, pulm htn, renal artery stenosis, viral hepatitis, Diagnosed with distal SBO at [facility], vomiting since yesterday, abd pain. Received gentle hydration, pepcid, zofran, PPI. Pt now comfortable, no vomiting, no abd pain, no NGT at this time. AAA 3.9->5.4; vitals stable ROS: Pertinent positives and negatives are included in the HPI Physical Exam: I reviewed the nursing notes and vital signs Patient Vitals for the past 24 hrs: Temp Heart Rate From SP02 Pulse Resp BP SpO2 04/24/205 36.9 ??C (98.4 ??F) 63 bpm 64 17 169/69 97 % 04/24/201999 -- 66 bpm 70 16 (!) 142/111 97 % 04/24/202014 -- 73 bpm 72 21 146/82 96 % 04/24/202029 -- 73 bpm 76 16 147/80 97 % 04/24/202044 -- 65 bpm -- -- 147/73 97 % 04/24/202099 -- 63 bpm -- -- 162/71 97 % 04/24/202114 -- 64 bpm -- -- 158/74 97 % General: No acute distress, well appearing HEENT: neck supple, no meningismus, normal mucous membranes Chest: CTA loren Cardiac: Nl S1S2 s m/g/r Abdomen: Nondistended, Soft, NT, ND Skin: No rashes, no ecchymoses Neuro: Normal gait, speech, and balance Psych: Normal mood and thought Assessment/plan: Pt with SBO transferred for surgical management. Stable, no acute issues. Surgery at bedside. Aime Kebede MD 04/24/202012 Aime Kebede MD 04/24/202148 Brent Juarez MD - 04/24/2020 7:49 PM EST Charlene Harmon is an 69 y.o. female who presents to the ED with: Chief Complaint Patient presents with ??? Hospital Transfer ??? Abdominal Pain I saw this patient 04/24/2020 at ~ 9:45 PM HPI Charlene Harmon is a 69 y.o. female with a PMH significant for AAA, renal artery stenosis, CKD stage 5 not on dialysis, HTN, CHF, pulm HTN who presents to the Emergency Department with SBO as a transfer from [facility]. Patient presents with emesis and found to have SBO at [facility] [place] [facility] [place] a [place] for furhter management and surgical evaluation. Patient endorses 1 month of occassional emesis secondary to globus sensation in the epigastrum. The patient last ate yesterday at 1730. She then woke at 0430 this AM with emesis and abdominal pain extending from the epigastrum to the suprapubic region. She had three additonal episodes of emesis and presented to [facility] where there was initially concern for rupture of her known AAA. She underwent CT c/a/p that demonstrated interval increase in her AAA from 3.9 to 5.4cm which reportedly cardiology is aware of, and also distal SBO which was felt to be the etiology of her symptoms. She received pepcid, zofran, GI cocktail with improvement in symptoms. She also received a small maount of IVF given her history of CHF with EF 20-25%. On presentation patient is well-appearing, without abdominal pain or nausea/vomiting, in no acute distress, AOx4. Social History Socioeconomic History ??? Marital status: Spouse name: Not on file ??? Number of children: Not on file ??? Years of education: Not on file ??? Highest education level: Not on file Occupational History ??? Not on file Social Needs ??? Financial resource strain: Not on file ??? Food insecurity Worry: Not on file Inability: Not on file ??? Transportation needs Medical: Not on file Non-medical: Not on file Tobacco Use ??? Smoking status: Former Smoker Packs/day: 0.50 Years: 45.00 Pack years: 22.50 Types: Cigarettes Quit date: 2007 Years since quittin.0 ??? Smokeless tobacco: Never Used ??? Tobacco comment: smoked for ~45 years up to 1 ppd at [facility], quit ~2000 Substance and Sexual Activity ??? Alcohol use: Yes Comment: a few glasses of wine, rarely 4 times a year ??? Drug use: No ??? Sexual activity: Yes Partners: Male Lifestyle ??? Physical activity Days per week: Not on file Minutes per session: Not on file ??? Stress: Not on file Relationships ??? Social connections Talks on phone: Not on file Gets together: Not on file Attends advent service: Not on file Active member of club or organization: Not on file Attends meetings of clubs or organizations: Not on file Relationship status: Not on file ??? Intimate partner violence Fear of current or ex partner: Not on file Emotionally abused: Not on file Physically abused: Not on file Forced sexual activity: Not on file Other Topics Concern ??? Abuse or Threat: [...] Not Asked ??? Weight Concern Not Asked Social History Narrative , lives with Rodolfo of 50 years. 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 No history of heavy etoh use 2 children healthy Review of Systems: A 10 point review of symptoms was performed and was negative except as below and in the HPI: Review of Systems Constitutional: Negative for chills and fever. Respiratory: Negative for shortness of breath. Cardiovascular: Negative for chest pain. Gastrointestinal: Positive for abdominal pain, constipation, nausea and vomiting. Neurological: Negative for syncope. Psychiatric/Behavioral: Negative for agitation, behavioral problems and confusion. Vital Signs: Patient Vitals for the past 24 hrs: BP Temp Temp src Pulse Resp SpO2 Height Weight 04/24/202114 158/74 -- -- -- -- 97 % -- -- 04/24/202099 162/71 -- -- -- -- 97 % -- -- 04/24/202044 147/73 -- -- -- -- 97 % -- -- 04/24/202029 147/80 -- -- 76 16 97 % -- -- 04/24/202014 146/82 -- -- 72 21 96 % -- -- 04/24/201999 (!) 142/111 -- -- 70 16 97 % -- -- 04/24/201944 169/69 36.9 ??C (98.4 ??F) Oral 64 17 97 % 152.4 cm (5') 42.6 kg (94 lb) I have reviewed the vital signs, which demonstrates HTN Physical Exam: Physical Exam Constitutional: General: She is not in acute distress. Appearance: Normal appearance. She is not toxic-appearing. HENT: Head: Normocephalic. Mouth/Throat: Mouth: Mucous membranes are moist. Pharynx: Oropharynx is clear. No oropharyngeal exudate or posterior oropharyngeal erythema. Eyes: Extraocular Movements: Extraocular movements intact. Neck: Musculoskeletal: Normal range of motion. Cardiovascular: Rate and Rhythm: Normal rate and regular rhythm. Pulses: Normal pulses. Heart sounds: Normal heart sounds. No murmur. No friction rub. No gallop. Pulmonary: Effort: Pulmonary effort is normal. Breath sounds: Normal breath sounds. Abdominal: General: There is no distension. Palpations: Abdomen is soft. Tenderness: There is no abdominal tenderness. There is no guarding or rebound. Musculoskeletal: Normal range of motion. Right lower leg: No edema. Left lower leg: No edema. Skin: General: Skin is warm and dry. Neurological: General: No focal deficit present. Mental Status: She is alert and oriented to person, place, and time. Psychiatric: Mood and Affect: Mood normal. Behavior: Behavior normal. ED Course: - Patient was evaluated and discussed with Dr. Aime [facility] - Medications, allergies and past medical history reviewed - Nursing notes and vital signs reviewed - Medications and fluid administered: Medications - No data to display - I have reviewed the labs, which are unremarkable Recent Results (from the past 24 hour(s)) POCT urine dipstick Result Value Ref Range POC Sp [place] 1.015 1.002 - 1.030 POC pH, UA 5 5.0 - 8.5 POC Leuk, UA neg Negative - Negative POC Nitrite, UA neg Negative - Negative POC Protein, UA 500 Negative - Negative mg/dL POC Glucose, UA normal Normal - Normal mg/dL POC Ketone, UA negative Negative - Negative POC Urobil, UA negative 0.2 - 1.0 mg/dL POC Bili, UA negative Negative - Negative POC Blood, UA negative Negative - Negative mikie/uL Basic Metabolic Panel (non-fasting) Result Value Ref Range Glucose Lvl 130 65 - 199 mg/dL BUN 30 (H) 8 - 18 mg/dL Creatinine 2.19 (H) 0.70 - 1.20 mg/dL Sodium 143 135 - 145 mmol/L Potassium 3.9 3.5 - 5.0 mmol/L Chloride 106 98 - 107 mmol/L CO2 25 22 - 31 mmol/L Anion Gap 12 5 - 15 mmol/L Calcium 9.0 8.5 - 10.5 mg/dL Estimated GFR 22 (L) >=60 mL/min/1.73 m?? Hepatic Function Panel Result Value Ref Range Total Protein 6.8 6.1 - 8.0 gm/dL Albumin 3.9 3.2 - 5.2 gm/dL AST 14 0 - 30 unit/L ALT 7 0 - 30 unit/L Alk Phos 80 35 - 105 unit/L Total Bilirubin 0.4 0.2 - 1.3 mg/dL Bili, Direct 0.1 0.0 - 0.3 mg/dL Lipase Result Value Ref Range Lipase 19 0 - 60 unit/L Prothrombin Time Result Value Ref Range PT 12.7 (H) 9.4 - 12.5 sec INR 1.1 APTT Result Value Ref Range PTT 29 25 - 37 sec Magnesium Result Value Ref Range Magnesium 0.94 0.69 - 1.07 mmol/L Phosphorus Result Value Ref Range Phosphorus 3.8 2.5 - 4.5 mg/dL ABO/Rh Typing Result Value Ref Range ABORh Type A Pos Antibody screen Result Value Ref Range Ab Screen Interp Negative Expires at 2359 on: 04/27/2020 Hemogram Result Value Ref Range WBC 8.3 4.0 - 9.5 x10(3)/mcL RBC 4.87 4.00 - 5.21 x10(6)/mcL Hemoglobin 14.4 11.7 - 15.5 gm/dL Hematocrit 43.5 35.7 - 45.8 % MCV 89.3 82.6 - 94.4 fL MCH 29.6 27.1 - 32.0 pg MCHC 33.1 31.7 - 35.0 gm/dL Platelets 317 145 - 357 x10(3)/mcL RDWSD 44.7 37.0 - 46.0 fL RDWCV 13.7 11.5 - 14.1 % MPV 9.8 7.6 - 12.9 fL nRBC % Auto 0.0 % nRBC Abs Auto 0.000 0.000 - 0.000 x10(3)/mcL Differential, Automated Result Value Ref Range Neutrophils % 80.4 % Neutr Abs (ANC) 6.69 (H) 1.70 - 6.10 x10(3)/mcL Lymphocytes % 8.8 % Lymphocytes Abs 0.7 (L) 0.9 - 3.2 x10(3)/mcL Monocytes % 9.5 % Monocyte Abs 0.8 0.3 - 0.9 x10(3)/mcL Eosinophils % 0.1 % Eosinophils Abs 0.0 0.0 - 0.4 x10(3)/mcL Basophils % 0.7 % Basophils Abs 0.1 0.0 - 0.1 x10(3)/mcL Immature Gran % 0.50 % Blanca Gran Abs 0.04 0.00 - 0.04 x10(3)/mcL ABORH Recheck Status Result Value Ref Range ABORH Type Recheck Completed - I have reviewed the imaging, which is significant for: Request For 2nd Read CT Chest Abdomen Pelvis Final Result 1. No focal consolidation, pleural effusion or pneumothorax. 2. Nonobstructing renal calculus in the midpole left kidney measuring 2 to 3 mm. 3. Lack of oral contrast limits evaluation. 4. Diffusely dilated small bowel loops measuring up to 3.2 cm with nonvisualization of the transition point. However transition point is thought to be in the distal small bowel. Collapsed distal most portion of the terminal ileum and large bowel. 5. Oral contrast limits evaluation of the solid viscera and vasculature. 6. Redemonstration of the known thoracoabdominal aortic aneurysm measuring up to 5.4 x 4.1 cm as described. No definitive periaortic fat stranding or mesenteric haziness to suggest leak. These findings are similar to the prior study dated 10/17/2019. Recommend Doppler ultrasound for further evaluation. Thank you for letting us participate in the care of this patient. For questions regarding this report, please contact the number below. Electronically signed by: Johnson Ruth MD, [facility] ([phone]), at 04/24/2020 9:13 PM - I have reviewed the EKG, which is significant for: n/a Assessment and Plan: MDM: Charlene Harmon is a 69 y.o. female with a PMH significant for AAA, renal artery stenosis, CKD stage 5 not on dialysis, HTN, CHF, pulm HTN who presents to the Emergency Department with SBO as a transfer from [facility]. Presentation and OSH imaging were consistent with SBO. 2nd reads of CT abd/pelvis also demonstrated SBO with presumed transition point in the distal small bowel. Exam was unremarkable and patient endorsed resolution of her symptoms and the abdominal exam was benign. Given this well-appearance, NG tube placement was deferred for the time. IV rehydration was also deferred given receipt of IVF at the OSH and poor EF. Lab work-up was unremarkable other than baseline poor renal function secondary to CKD stage V not on dialysis. Surgery was consulted and will likely admit the patient for further management, disposition pending their final recommendations. Patient care was transferred to the oncoming physician team, please see their notes for ongoing careand management in the ED. Plan: SBO - admitted to surgery Brent Juarez MD EM Resident, PGY-2 04/24/20 9:45 PM Brent Juarez MD Resident 04/24/202200 Associated attestation - Aime Kebede MD - 04/24/2020 10:48 PM EST ED ATTENDING ATTESTATION The patient was seen in conjunction with the resident physician. I have independently performed the burgess portions of the history and physical exam. I have personally reviewed nursing notes, vital signs,and diagnostic studies including labs, imaging studies and EKGs. I have discussed the details of the case with the resident and agree with the assessment and plan as described in the resident's note, unless stated otherwise in my separate note. Did this case involve critical care? Yes CRITICAL CARE DOCUMENTATION: Is there a high potential of sudden, clinically significant, or life threatening deterioration? Yes Are there life and/or organ supporting interventions that require frequent personal assessment and manipulation or support to treat/prevent vital organ failure/deterioration? yes I personally performed 30 minutes of aggregate critical care time exclusive of procedures and teaching during this emergency department visit. This includes time spent during direct patient evaluation and reassessment, interpreting diagnostic tests, directing life and/or organ supporting interventions, and documentation. documented in this encounter Miscellaneous Notes Plan of Care - Bertha Sousa RN - 05/01/2020 2:44 AM EST Problem: Patient Care Overview Goal: Plan of Care Review Outcome: Ongoing (Interventions Implemented as Appropriate) 04/30/20 1445 04/30/202008 Plan of Care Review Progress progress toward functional goals as expected -- Coping/Psychosocial Plan Of Care Reviewed With -- patient OUTCOME EVALUATION NOTE: OUTCOME SUMMARY: Charlene has had stable VS overnight, bradycardic at rest. Denies nausea, SOB, numbness and tingling. Endorses 5-7/10 L sided abdominal pain; PO PRN Oxycodone given x1 with good effect. Midline incision C/D/I, MIRNA. Pt IND up to toilet, producing urine and loose stool. Pt resting between care. PLAN MOVING FORWARD: Monitor VS, labs, I/O Encourage OOB activity, PO intake D/c planning pending INDIVIDUALIZED FALL PREVENTION INTERVENTIONS: Patient-specific fall risk factors per assessment: [current deficits]: IV access, pain Assistance [level of assistance required for transfers and ambulation]: IND Supervision [direct monitoring required during toileting and ADLs]: IND Surveillance [continuous indirect monitoring]: Masimo, call marcial within reach, room near unit station, hourly rounding Patient-specific fall prevention interventions for sensory deficits provided, if applicable: [X] N/A CPG GOAL OUTCOME EVALUATION: Plan of Care - Grace Turner RN - 04/30/2020 2:49 PM EST Problem: Patient Care Overview Goal: Plan of Care Review Outcome: Ongoing (Interventions Implemented as Appropriate) 04/30/20 1445 Plan of Care Review Progress progress toward functional goals as expected Coping/Psychosocial Plan Of Care Reviewed With patient OUTCOME EVALUATION NOTE: OUTCOME SUMMARY: ?? Pt is POD # 4 ex-lap w/ lysis of adhesion for SBO. VSS. Pt given a dulcolax suppository today. Pt had 1 loose BM, passing some flatus. Pt ambulated in hallway multiple times today. She was advanced to a regular diet, tolerating well. Pt denies nausea. Pt reports abdominal pain 4-7/10, scheduled tylenol administered and prn oxycodone 5mg administered x1 with good effect. Midline incision C/D/I [employer]ING [employer]AT MATE. IVF d/c. Pt resting in between care. ?? PLAN MOVING FORWARD: ?? Monitor VS, labs Manage pain Monitor bowel function D/C tomorrow ?? INDIVIDUALIZED FALL PREVENTION INTERVENTIONS: ?? Patient-specific fall risk factors per assessment: [current deficits]: Medium fall risk r/t IV, steady on feet, rings appropriately ?? Assistance [level of assistance required for transfers and ambulation]: IND ?? Supervision [direct monitoring required during toileting and ADLs]: Eyes on ?? Surveillance [continuous indirect monitoring]: Purposeful hourly rounding, call marcial within reach, room near nurses station ?? Patient-specific fall prevention interventions for sensory deficits provided, if applicable: N/A ? CPG GOAL OUTCOME EVALUATION: Plan of Care - Sindy Orourke RN - 04/30/2020 1:23 AM EST Problem: Patient Care Overview Goal: Plan of Care Review Outcome: Ongoing (Interventions Implemented as Appropriate) 04/29/20 1603 04/29/202047 Plan of Care Review Progress progress toward functional goals as expected -- Coping/Psychosocial Plan Of Care Reviewed With -- patient OUTCOME EVALUATION NOTE: ?? OUTCOME SUMMARY: ?? Pt is POD #4 s/p ex-lap w/ lysis of adhesion for SBO. Pt had a good night. VSS. Reported pain 4-6//10 in abdomen, prn oxy given x1 with good effect and lidocaine patch placed on abdomen. 1L FR maintained. Tolerating clear liquid diet well, reported no nausea. Continuous fluids running per MAR. Rested well between nursing care, will continue to monitor. ?? PLAN MOVING FORWARD: ?? Monitor labs/vs Pain control D/C planning ?? INDIVIDUALIZED FALL PREVENTION INTERVENTIONS: ?? Patient-specific fall risk factors per assessment: [current deficits]: Generalized weakness, IV access ?? Assistance [level of assistance required for transfers and ambulation]: SBA ?? Supervision [direct monitoring required during toileting and ADLs]: Eyes on ?? Surveillance [continuous indirect monitoring]: Purposeful rounding, masimo ?? Patient-specific fall prevention interventions for sensory deficits provided, if applicable: N/A ? CPG GOAL OUTCOME EVALUATION: ?? Plan of Care - Grace Turner RN - 04/29/2020 5:12 PM EST Problem: Patient Care Overview Goal: Plan of Care Review Outcome: Ongoing (Interventions Implemented as Appropriate) 04/29/20 1603 Plan of Care Review Progress progress toward functional goals as expected Coping/Psychosocial Plan Of Care Reviewed With patient OUTCOME EVALUATION NOTE: OUTCOME SUMMARY: Pt is POD # 3 ex-lap w/ lysis of adhesion for SBO. VSS. Scheduled hydralazine and lasix started. Pt had 1 loose BM, passing some flatus. Pt ambulated in hallway multiple times today. She was advanced to a clear liquid diet w/ a 1L fluid restriction, tolerating well. Pt denies nausea. 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 2nd bag of Kphos administered. D5 in 1/2 NS w/ 20Meq K+ infusing @ 50ml/hr. Pt resting in between care. PLAN MOVING FORWARD: Monitor VS, labs Manage pain Monitor bowel function Slowly advance diet INDIVIDUALIZED FALL PREVENTION INTERVENTIONS: Patient-specific fall risk factors per assessment: [current deficits]: Medium fall risk r/t IV, steady on feet, rings appropriately Assistance [level of assistance required for transfers and ambulation]: IND Supervision [direct monitoring required during toileting and ADLs]: Eyes on Surveillance [continuous indirect monitoring]: Purposeful hourly rounding, call marcial within reach, room near nurses station Patient-specific fall prevention interventions for sensory deficits provided, if applicable: N/A CPG GOAL OUTCOME EVALUATION: Plan of Care - Sindy Orourke RN - 04/29/2020 4:08 AM EST Problem: Patient Care Overview Goal: Plan of Care Review Outcome: Ongoing (Interventions Implemented as Appropriate) 04/29/20 0404 Plan of Care Review Progress progress toward functional goals as expected Coping/Psychosocial Plan Of Care Reviewed With patient OUTCOME EVALUATION NOTE: OUTCOME SUMMARY: Pt had a good night. Around midnight, BP was 173/73, prn labetalol administered, recheck was 153/70.Reported pain 2-3/10 in abdomen, made worse with movement, well controlled with scheduled tylenol. Prn dilaudid given x1 for pain lvl of 8/10, given with good effect. Rested well between nursing care, will continue to monitor. PLAN MOVING FORWARD: Monitor labs/vs BP control D/C planning INDIVIDUALIZED FALL PREVENTION INTERVENTIONS: Patient-specific fall risk factors per assessment: [current deficits]: Generalized weakness, IV access Assistance [level of assistance required for transfers and ambulation]: SBA Supervision [direct monitoring required during toileting and ADLs]: Eyes on Surveillance [continuous indirect monitoring]: Purposeful rounding, masimo Patient-specific fall prevention interventions for sensory deficits provided, if applicable: N/A CPG GOAL OUTCOME EVALUATION: Plan of Care - Nina Jones RN - 04/28/2020 11:05 AM EST Problem: Patient Care Overview Goal: Plan of Care Review Outcome: Ongoing (Interventions Implemented as Appropriate) 04/28/20 1100 Plan of Care Review Progress progress toward functional goals as expected Coping/Psychosocial Plan Of Care Reviewed With patient OUTCOME EVALUATION NOTE: OUTCOME SUMMARY: Charlene Harmon POD #2 exlap w/ lysis of adhesion. BPs 160s-170s/70s. Prn labetalol and prn hydralazine given x1 with good effect. Intermittently bradycardic to the 40's - MD notified - EKG ordered and obtained. Pt c/o back discomfort from lying in bed - pillow applied - discomfort relieved. NGT removed, pttolerating well. PO meds and fluids tolerated well, pt denies n/v. Ambulated around the unit today x2, had slight increased pain following. Heat pack applied, pain alleviated. IV fluids infusing @ 75 mL/hr. Pt resting between care. Will continue to monitor. PLAN MOVING FORWARD: Monitor VS and labs IV fluids Q4hr NGT flushes INDIVIDUALIZED FALL PREVENTION INTERVENTIONS: Patient-specific fall risk factors per assessment: [current deficits]: NGT, IV access/tubing, mediumfall risk - no overt deficits noted Assistance [level of assistance required for transfers and ambulation]: SBA Supervision [direct monitoring required during toileting and ADLs]: Within arms reach Surveillance [continuous indirect monitoring]: Masimo, bed alarm, call light in reach, room near nurses station, purposeful hourly rounding Patient-specific fall prevention interventions for sensory deficits provided, if applicable: CPG GOAL OUTCOME EVALUATION: Plan of Care - Evelio Santiago RN - 04/28/2020 4:22 AM EST Problem: Patient Care Overview Goal: Plan of Care Review Outcome: Ongoing (Interventions Implemented as Appropriate) 04/25/20 1609 04/27/20 2227 Plan of Care Review Progress progress toward functional goals as expected -- Coping/Psychosocial Plan Of Care Reviewed With -- patient OUTCOME SUMMARY: ?? Post-op day #2 s/p exlap with lysis of adhesion. Alert + oriented x4. VSS (known HTN, but below 160 systolic). Pain denied any pain this shift. NGT insitu and on continuous low suction, draining dark green fluid. 200 cc total output since last night. Flushed [id number] as ordered with no issues. IVF continued at 75 cc/h. Midline abdominal dressing clean, dry and intact. Dry drainage outlined and has notincreased. Pt slept the majority of the shift with no concerns. Will continue to monitor. ?? PLAN MOVING FORWARD: ?? Q4 NGT flushes Monitor VS, labs, I&O Encourage OOB activity ?? INDIVIDUALIZED FALL PREVENTION INTERVENTIONS: ?? Patient-specific fall risk factors per assessment: [current deficits]: High fall risk r/t NGT, IVF tubing ?? Assistance [level of assistance required for transfers and ambulation]: SBA ?? Supervision [direct monitoring required during toileting and ADLs]: Arms reach ?? Surveillance [continuous indirect monitoring]: Masimo, bed alarm, call marcial hourly rounding ?? Patient-specific fall prevention interventions for sensory deficits provided, if applicable: [X] N/A ? CPG GOAL OUTCOME EVALUATION: Plan of Care - Bairon Brandon RN - 04/27/2020 6:48 PM EST Problem: Patient Care Overview Goal: Plan of Care Review Outcome: Ongoing (Interventions Implemented as Appropriate) 04/25/20 1609 04/27/20 0858 Plan of Care Review Progress progress toward functional goals as expected -- Coping/Psychosocial Plan Of Care Reviewed With -- patient OUTCOME EVALUATION NOTE: OUTCOME SUMMARY: Pt A&Ox4, VSS, afebrile. NGT to low continuous suction. Pain well controlled 0- 2/10 with scheduled tylenol. Very little output in NGT. Bladder scanned for 45ml, whitaker catheter removed. Able to voidspontaneously, PVR 59. NGT flushed q 4 per orders. Pt ambulated around the unit with ease. Resting comfortably between care. No other issues or concerns at this time. 1845: BP 165/82, labetolol x 1 administered. PLAN MOVING FORWARD: Q4 NGT flushes Monitor VS, labs, I&O Encourage OOB activity INDIVIDUALIZED FALL PREVENTION INTERVENTIONS: Patient-specific fall risk factors per assessment: [current deficits]: High fall risk r/t NGT, IVF tubing Assistance [level of assistance required for transfers and ambulation]: SBA Supervision [direct monitoring required during toileting and ADLs]: Arms reach Surveillance [continuous indirect monitoring]: Masimo, bed alarm, call marcial hourly rounding Patient-specific fall prevention interventions for sensory deficits provided, if applicable: [X] N/A CPG GOAL OUTCOME EVALUATION: Plan of Care - Evelio Santiago RN - 04/27/2020 6:30 AM EST Problem: Patient Care Overview Goal: Plan of Care Review Outcome: Ongoing (Interventions Implemented as Appropriate) 04/25/20 1609 04/26/202100 Plan of Care Review Progress progress toward functional goals as expected -- Coping/Psychosocial Plan Of Care Reviewed With -- patient OUTCOME EVALUATION NOTE: OUTCOME SUMMARY: Mrs. Harmon is here for a SBO. She is alert + oriented x4. Remains hypertensive but otherwise, VSS and afebrile. Labetalol given x1 PRN for SBP greater than 160 with acceptable effects. Pt asymptomatic. Pt went to OR at midnight for exploratory laparoscopy due to increasing abdominal pain, 9/10, unrelieved by IV Dilaudid, despite NGT. Midline incision insitu and covered by surgical dressing with scant amount of dry drainage. Pt rates pain 2/[address] in OR and draining clear yellow urine. LR running at 75 cc/h. Tylenol IV administered as per JUN. NGT on low continuous suction, draining dark green/brown fluid. Approx 200 cc drained this shift. New orders received to flush NGT q4 hours. NGT flushed with no issues. Will continue to monitor. PLAN MOVING FORWARD: - Pain management - Drain care and monitoring - IV fluids INDIVIDUALIZED FALL PREVENTION INTERVENTIONS: Patient-specific fall risk factors per assessment: [current deficits]: Recent surgery, IV tubing, pain Assistance [level of assistance required for transfers and ambulation]: SBA Supervision [direct monitoring required during toileting and ADLs]: SBA Surveillance [continuous indirect monitoring]: Bed alarm, masimo, purposeful rounding, call marcial within reach Patient-specific fall prevention interventions for sensory deficits provided, if applicable: CPG GOAL OUTCOME EVALUATION: Op Note - Rafita Davis MD - 04/27/2020 5:05 AM EST [facility] [place] Patient Name: Charlene Harmon : [id number] MR#: [id number] Case Date: 04/26/2020 - 04/27/2020 Surgeon: Surgeon(s) and Role: * Edwin Ayala MD - Primary * Rafita Davis MD - Resident Preoperative diagnosis: small bowel obstruction Postoperative diagnosis: small bowel obstruction Procedure(s) (LRB): @EXPLORATORY LAPAROTOMY, WITH/WITHOUT BIOPSY(S) (WRVU 12.54) (N/A) Lysis of adhesions Anesthesia: General Estimated Blood Loss: 50cc Specimens removed during surgery: None Drains: None new Surgical Closure: Primary Closure - skin incision is completely closed without any wires, diamond, drains or other devices Disposition: awakened from anesthesia, extubated and taken to the recovery room in a stable condition, having suffered no apparent untoward event. Condition: doing well without problems (Please see the Surgical Encounter Summary for any Implant and Specimen details pertinent to this patient.) HPI/Surgical Indications: 69 year old female with history notable for renovascular hypertension, CKD, hysterectomy and bilateral renal artery stenosis for which she underwent right renal artery bypass via a transabdominal approach in 2019. She presented on 04/24 with 24 hours of abdominal discomfort, nausea and vomiting and was found on CT to have a distal obstructive small bowel picture without a clear transition point. She appeared partially obstructed with some ongoing bowel function and was admitted for bowel rest however over the last two days became increasingly distended and uncomfortable, required nasogastric tube placement and nevertheless had a worsening abdominal exam and so operative exploration was recommended and consent for laparotomy and possible bowel resection was obtained. Findings: 1. Exploratory laparotomy with reactive ascites on abdominal entry. Right colon adherent to the right of midline from prior trans-abdominal renal bypass procedure otherwise relatively free of adhesions 2. High grade obstruction from adhesive band off the jejunum just beyond the Ligament of treitz which was wrapped around the terminal ileum ~20cm proximal to ileocecal valve. Ileum hemorrhagic but viable ?? Procedure Description: After verifying patient identify and consent she was brought to the operatingroom. General anesthesia was induced and endotracheal intubation performed. A whitaker was placed. Ancef and Flagyl were given. The abdomen was prepped and draped in sterile fashion and a surgical time out performed. We made our incision from the umbilicus to the pubis and carried dissection down to fascia with cautery. Fascia was scored, entered bluntly and opened along the length of the incision and the peritoneum then grasped and opened sharply. On abdominal entry there was a moderate amount of reactive ascites. Dilated small bowel was eviscerated and we sought to identify the terminal ileum and cecum. This was made slightly more difficult by the right colon and omentum being adherent just to the right of our midline entry however there were no other anterior adhesions. Venous bleeding resulted from the omentum from the right colon which was controlled with a silk tie. We did not takedown the right colon off the anterior abdominal wall. We traced dilated bowel to the terminal ileum and identified a thick adhesive band with decompressed distal bowel about 20cm proximal to the ileocecal valve. This was divided with cautery. An intraloop adhesion of terminal ileum here was released sharply. We then ran the bowel proximally to the ligament of Treitz and noted that this adhesive band had originated off the antimesenteric aspect of the proximal jejunum. The small bowel was run in its entirety from the ligament of treitz to cecum to confirm no additional points of obstruction. The bowel was dilated and more distally had spotty areas of hemorrhagic ecchymosis but appeared viable. Enteric contents were milked proximally and distally to decompress the bowel and facilitate abdominal closure. Hemostasis was ensured. Fascia was then closed with #1 PDS, the transversus plane infiltrated with bupivacaine, and skin closed with alex. Primapore dressing was applied. Her anesthesia was lightened and she was extubated and brought to the recovery unit in stable condition. Dr. Ayala was present and scrubbed for the entire procedure. Infection Bundle used? No Rafita Davis MD 04/27/2020 Associated attestation - Edwin Ayala MD - 05/01/2020 8:12 AM EST Attestation: Case Date: 04/26/2020 - 04/27/2020 I was present and I participated during the entire procedure (does not need to include opening and closing). EDWIN AYALA MD 05/01/2020 Brief Op Note - Rafita Davis MD - 04/27/2020 1:39 AM EST Brief Operative Note Patient Name: Charlene Harmon : [id number] MR#: [id number] Case Date: 04/26/2020 - 04/27/2020 Surgeon: Surgeon(s) and Role: * Edwin Ayala MD - Primary * Rafita Davis MD - Resident Preoperative diagnosis: small bowel obstruction Postoperative diagnosis: small bowel obstruction Procedure(s) (LRB): @EXPLORATORY LAPAROTOMY, WITH/WITHOUT BIOPSY(S) (VU 12.54) (N/A) Anesthesia: General Findings: 1. Exploratory laparotomy with reactive ascites on abdominal entry. Right colon adherent to the right of midline from prior trans-abdominal renal bypass procedure otherwise relatively free of adhesions 2. High grade obstruction from adhesive band off the jejunum just beyond the Ligament of treitz which was wrapped around the terminal ileum ~20cm proximal to ileocecal valve. Ileum hemorrhagic but viable Complications: None apparent Estimated Blood Loss: 50cc Specimens removed during surgery: None Fluids: 1200cc PRBCs: none (See Anesthesia Record/Report for Other Blood Products) Urine Output: 200cc Drains: None Disposition: awakened from anesthesia, extubated and taken to the recovery room in a stable condition, having suffered no apparent untoward event. Condition: doing well without problems (Please see the Surgical Encounter Summary for any Implant and Specimen details pertinent to this patient.) Infection Bundle used? No Plan of Care - Nina Jones RN - 04/26/2020 11:13 AM EST Problem: Patient Care Overview Goal: Plan of Care Review Outcome: Ongoing (Interventions Implemented as Appropriate) OUTCOME EVALUATION NOTE: OUTCOME SUMMARY: Charlene Harmon here with SBO. BPs 160s-180s/70s. Prn labetalol given x3 and prn hydralazine given x2 withlittle effect. Pt c/o pain 5-8/10 in upper abdomen, prn dilaudid given x3 with little effect. Pt unable to take PO meds - MD aware - no interventions at this time. NGT to continuous low suction. Abd X-ray obtained x 2 - see results. IV potassium administered x2. LR infusing @ 75 mL/hr. Pt resting between care. Will continue to monitor. PLAN MOVING FORWARD: Monitor VS and labs Pain management BP management Monitor NGT IV fluids INDIVIDUALIZED FALL PREVENTION INTERVENTIONS: Patient-specific fall risk factors per assessment: [current deficits]: IV access/tubing, NGT, pain/pain medication Assistance [level of assistance required for transfers and ambulation]: SBA Supervision [direct monitoring required during toileting and ADLs]: Within arms reach Surveillance [continuous indirect monitoring]: Masimo, bed alarm, call light in reach, room near nurses station, purposeful hourly rounding Patient-specific fall prevention interventions for sensory deficits provided, if applicable: CPG GOAL OUTCOME EVALUATION: Plan of Care - Viki Mcpherson RN - 04/26/2020 5:11 AM EST Problem: Patient Care Overview Goal: Plan of Care Review Outcome: Ongoing (Interventions Implemented as Appropriate) 04/26/20 6811 Coping/Psychosocial Plan Of Care Reviewed With patient OUTCOME EVALUATION NOTE: OUTCOME SUMMARY: A/O x4, afebrile. Upper abdominal pain reported 8/10; PRN Dilaudid x2 given with little effect. ( notified) VSS ex. BP 180's/80's gave PRN labetalol x4 and PRN hydralzine x1 given with little effect; notified and will notify AM team to re-evaluate BP medications; will continue to monitor. Patientis asymptomatic. Patient denied SOB, chest pain. N/V noted PRN Zofran x1 given with good effect. NGTtaped to center for nose, 73cm and connected to LCS. Output dark brown. IV fluids continued. Abdominal x-ray with contrast pending results. Patient rested in between nursing care. PLAN MOVING FORWARD: Monitor VS, labs, I & O. Pain/pain medications. NGT to LCS. IV Fluids D/C planning pending. INDIVIDUALIZED FALL PREVENTION INTERVENTIONS: Patient-specific fall risk factors per assessment: [current deficits]: Pain/pain medications, IV fluids/tubing/pole, NGT, diagnosis. Assistance [level of assistance required for transfers and ambulation]: SBA Supervision [direct monitoring required during toileting and ADLs]: Hands on. Surveillance [continuous indirect monitoring]: Safety checks and hourly rounding, bed alarm, call marcial, Masimo. Patient-specific fall prevention interventions for sensory deficits provided, if applicable: N/A CPG GOAL OUTCOME EVALUATION: Plan of Care - Neena Suazo RN - 04/25/2020 4:26 PM EST Problem: Patient Care Overview Goal: Plan of Care Review Outcome: Ongoing (Interventions Implemented as Appropriate) 04/25/20 0748 04/25/20 1609 Plan of Care Review Progress -- progress toward functional goals as expected Coping/Psychosocial Plan Of Care Reviewed With patient -- OUTCOME EVALUATION NOTE: OUTCOME SUMMARY: BP 180s/70s; MD notified; otherwise VSS on RA NG placed this AM to rest bowels; confirmed with CXR; on low int. Suction with good output- at 73cm tape C/o int. Generalized abdominal pain- PO PRN dilaudid x2 and wilfred. IV Tylenol with good affect PT c/o nausea; with 200cc emesis output this AM; notified; tried to take PO medications this evening with 50cc brown emesis; MD notified NPO diet PT resting between nursing care PLAN MOVING FORWARD: Monitor VS, Labs, I&O Pain Management PRN NPO KUB at 0100, 04/26 INDIVIDUALIZED FALL PREVENTION INTERVENTIONS: Patient-specific fall risk factors per assessment: [current deficits]: IV Access, NG Tube, Generalized Weakness Assistance [level of assistance required for transfers and ambulation]: SBA Supervision [direct monitoring required during toileting and ADLs]: Hands On Surveillance [continuous indirect monitoring]: Masimo, Purposeful Rounding, Call Marcial Within Reach Patient-specific fall prevention interventions for sensory deficits provided, if applicable: CPG GOAL OUTCOME EVALUATION: Initial Assessments - Karina Medina RN - 04/25/2020 10:29 AM EST Office of Care Management Initial Assessment KARINA MEDINA RN reviewed record and discussed patient with Care Team. Source of Information: Chart reviewed, care discussed with primary team and interview with patient. Introduced self/reviewed role; services accepted. Reason for Hospitalization: Reason for Admission as Stated by Patient: Abdomen pain Last COVID test date and time: 04/24 at 22:59 negative Past Medical History: Diagnosis Date ??? AAA (abdominal aortic aneurysm) [id number] angiogram; 3.2 cm infrarenal ??? Constipation ??? Dyslipidemia ??? Hypertension ??? Insomnia ??? Peripheral vascular disease ??? Renal artery stenosis R; per 2009 angiogram ??? SBO (small bowel obstruction) Hospitalizations Within the Past 30 Days: Transferred from [facility] otherwise no hospitalizations Anticipated Length Of Stay (If known): potential 04/28/2020 Current Decision-Making Capacity: Patient is alert and oriented and able to make decisions. Advance Care Planning: Has advanced directives and , Rodolfo Harmon, is DPOA HC. Daughter, Mary Haromn, is back up. A copy is in medical record and patient confirms that this is current. Current Coping/Education/Information Needs: Coping well with hospital stay and feels updated on issues and plan. Current Functional Ability: Anticipate she will be at functional baseline- currently is in bed and not ambulated. Functional Status Prior to Admission: States she is independent and very active. She drives. Is retired. Home Environment: Lives in 2 level home with 1 step to enter at one door and 8 to enter at other. She has bedrooms and bathrooms on both levels. Stairs are not a barrier for her. Social & Family Supports/Community Resources: Lives with who is able to assist if needed. Behavioral Health History: Denies any history of mental illness, depression or anxiety Substance Use/Abuse: Quit smoking in 2007, has no more than 4 glasses of wine in a year, does not use non prescribed drugs or marijuana. Other Pertinent/Service Specific Information: n/a Health/Prescription Coverage: Primary Insurance: MEDICARE Secondary Insurance: [employer] [place] Prescription Coverage: yes Preferred Pharmacy: [facility] in [place] Other: n/a Primary Care Provider: Sanjuanita Lee MD [phone] Patient/Caregiver Goals of Treatment: home with no needs once medically ready Potential Needs for Transition of Care: Rehab/SNF: n/a Home Health: n/a DME: n/a Dialysis: n/a Community Resources: none Transportation: Other: n/a Anticipated Barriers to Discharge/Special Considerations: none Assessment: Independent woman transferred from [facility] with small bowel obstruction. Has insurance through Medicare and [employer] with prescription coverage. Has accessible home and good family support.Has advanced directives. Plan: home with no needs once medically ready. A member of the Care Management team will continue to monitor progress, follow for continuity of care and assist with transition of care planning. KARINA MEDINA RN Pager: [phone] documented in this encounter Plan of Treatment Scheduled Procedures Name Priority Associated Diagnoses Date/Time EGD, UPPER GI ENDOSCOPY Gastroesophageal reflux disease, esophagitis presence not specifi ed documented as of this encounter Procedures Procedure Name Priority Date/Time Associated Comments Diagnosis SCAN, PERIPHERAL BLOOD STAT 05/01/2020 4:00 Re sults for this AM EST procedure are i n the results section. HEMOGRAM STAT 05/01/2020 4:00 Results for this AM EST procedure are i n the results section. DIFFERENTIAL, AUTOMATED STAT 05/01/2020 4:00 R esults for this AM EST procedure are i n the results section. HC VENIPUNCTURE STAT 05/01/2020 4:00 AM EST HC PHOSPHORUS, SERUM Routine 05/01/2020 4:00 Resu lts for this AM EST procedure are i n the results section. HC MAGNESIUM, SERUM Routine 05/01/2020 4:00 Resul ts for this AM EST procedure are i n the results section. BASIC METABOLIC PANEL STAT 05/01/2020 4:00 Res ults for this (NON-FASTING) AM EST procedure are in the results section. HEMOGRAM STAT 04/30/2020 3:51 Results for this AM EST procedure are i n the results section. DIFFERENTIAL, AUTOMATED STAT 04/30/2020 3:51 R esults for this AM EST procedure are i n the results section. HC VENIPUNCTURE STAT 04/30/2020 3:51 AM EST HC PHOSPHORUS, SERUM Routine 04/30/2020 3:51 Resu lts for this AM EST procedure are i n the results section. HC MAGNESIUM, SERUM Routine 04/30/2020 3:51 Resul ts for this AM EST procedure are i n the results section. BASIC METABOLIC PANEL STAT 04/30/2020 3:51 Res ults for this (NON-FASTING) AM EST procedure are in the results section. HEMOGRAM STAT 04/29/2020 1:39 Results for this AM EST procedure are i n the results section. DIFFERENTIAL, AUTOMATED STAT 04/29/2020 1:39 R esults for this AM EST procedure are i n the results section. HC CBC,PLT & AUTO DIFF STAT 04/29/2020 1:39 AM EST HC PHOSPHORUS, SERUM Routine 04/29/2020 1:39 Resu lts for this AM EST procedure are i n the results section. HC MAGNESIUM, SERUM Routine 04/29/2020 1:39 Resul ts for this AM EST procedure are i n the results section. BASIC METABOLIC PANEL STAT 04/29/2020 1:39 Res ults for this (NON-FASTING) AM EST procedure are in the results section. EKG 12-LEAD STAT 04/28/2020 3:14 Bradycardia Results for this PM EST procedure are i n the results section. HC HEMOGRAM Routine 04/28/2020 4:45 Results for this AM EST procedure are i n the results section. HC PHOSPHORUS, SERUM Routine 04/28/2020 4:45 Resu lts for this AM EST procedure are i n the results section. HC MAGNESIUM, SERUM Routine 04/28/2020 4:45 Resul ts for this AM EST procedure are i n the results section. BASIC METABOLIC PANEL Routine 04/28/2020 4:45 Res ults for this (NON-FASTING) AM EST procedure are in the results section. HC HEMOGRAM Routine 04/27/2020 2:20 Results for this AM EST procedure are i n the results section. HC PHOSPHORUS, SERUM Routine 04/27/2020 2:20 Resu lts for this AM EST procedure are i n the results section. HC MAGNESIUM, SERUM Routine 04/27/2020 2:20 Resul ts for this AM EST procedure are i n the results section. BASIC METABOLIC PANEL Routine 04/27/2020 2:20 Res ults for this (NON-FASTING) AM EST procedure are in the results section. @EXPLORATORY 04/27/2020 12:27 small bowel LAPAROTOMY, AM EST obstruction WITH/WITHOUT BIOPSY(S) (WRVU 12.54) EXPLORATORY LAPAROTOMY, Routine 04/26/2020 11:33 WITH/WITHOUT BIOPSY(S) PM EST XR ABDOMEN 1 VIEW Routine 04/26/2020 11:18 Result s for this PM EST procedure are i n the results section. XR ABDOMEN 1 VIEW Routine 04/26/2020 5:56 Results for this PM EST procedure are i n the results section. XR ABDOMEN 1 VIEW STAT 04/26/2020 9:15 Results for this AM EST procedure are i n the results section. HC VENIPUNCTURE Routine 04/26/2020 4:26 Results f or this AM EST procedure are i n the results section. HC PHOSPHORUS, SERUM Routine 04/26/2020 4:26 Resu lts for this AM EST procedure are i n the results section. HC MAGNESIUM, SERUM Routine 04/26/2020 4:26 Resul ts for this AM EST procedure are i n the results section. BASIC METABOLIC PANEL Routine 04/26/2020 4:26 Res ults for this (NON-FASTING) AM EST procedure are in the results section. XR ABDOMEN 1 VIEW Routine 04/26/2020 1:00 Results for this AM EST procedure are i n the results section. XR ABDOMEN 1 VIEW STAT 04/25/2020 11:43 Result s for this AM EST procedure are i n the results section. HC VENIPUNCTURE Routine 04/25/2020 7:30 Results f or this AM EST procedure are i n the results section. HC PHOSPHORUS, SERUM Routine 04/25/2020 7:30 Resu lts for this AM EST procedure are i n the results section. HC MAGNESIUM, SERUM Routine 04/25/2020 7:30 Resul ts for this AM EST procedure are i n the results section. BASIC METABOLIC PANEL Routine 04/25/2020 7:30 Res ults for this (NON-FASTING) AM EST procedure are in the results section. XR ABDOMEN 1 VIEW Routine 04/25/2020 6:19 Results for this AM EST procedure are i n the results section. EKG 12-LEAD STAT 04/24/2020 10:03 Results for this PM EST procedure are i n the results section. L-LACTATE2 WHOLE BLOOD Routine 04/24/2020 9:04 Re sults for this PM EST procedure are i n the results section. RAPID COVID-19 PCR STAT 04/24/2020 8:55 Result s for this ([facility]/APD/NLH) PM EST procedure are in the results section. REQUEST FOR 2ND READ CT STAT 04/24/2020 8:01 R esults for this CHEST ABDOMEN PELVIS PM EST procedu re are in the results section. ABORH RECHECK STATUS STAT 04/24/2020 8:00 Resu lts for this PM EST procedure are i n the results section. HEMOGRAM STAT 04/24/2020 8:00 Results for this PM EST procedure are i n the results section. DIFFERENTIAL, AUTOMATED STAT 04/24/2020 8:00 R esults for this PM EST procedure are i n the results section. ABO/RH TYPING STAT 04/24/2020 8:00 Results for this PM EST procedure are i n the results section. HC PARTIAL STAT 04/24/2020 8:00 Results for this THROMBOPLASTIN TIME PM EST procedur e are in the results section. HC PROTHROMBIN TIME STAT 04/24/2020 8:00 Resul ts for this PM EST procedure are i n the results section. HC CBC,PLT & AUTO DIFF STAT 04/24/2020 8:00 PM EST ANTIBODY SCREEN STAT 04/24/2020 8:00 Results f or this PM EST procedure are i n the results section. HC ABO-MICROTITER STAT 04/24/2020 8:00 PM EST HC PHOSPHORUS, SERUM STAT 04/24/2020 8:00 Resu lts for this PM EST procedure are i n the results section. HC MAGNESIUM, SERUM STAT 04/24/2020 8:00 Resul ts for this PM EST procedure are i n the results section. HC LIPASE STAT 04/24/2020 8:00 Results for this PM EST procedure are i n the results section. HEPATIC FUNCTION PANEL STAT 04/24/2020 8:00 Re sults for this PM EST procedure are i n the results section. BASIC METABOLIC PANEL STAT 04/24/2020 8:00 Res ults for this (NON-FASTING) PM EST procedure are in the results section. POCT URINE DIPSTICK STAT 04/24/2020 Results for this procedure are i n the results section. documented in this encounter Results Scan, Peripheral Blood (05/01/2020 4:00 AM EST) [facility] ReVera Method Time Signature Plat Estimate Normal [facility] RBC Morphology Abnormal [facility] Ovalocytes 1-5 /HPF [facility] Ramsay Cells 6-10 /HPF [facility] Specimen Anatomical Collection Method Collection Time Receive d Time (Source) Location / / Volume Laterality Blood specimen 05/01/2020 4:00 AM 021 4:23 (specimen) EST AM EST Resulting Agency Comment Spec In Lab Orville Elaine MD HEMATOLOGY ORDERABLES Performing Organization Address City/State/[place] [address] (ABNORMAL) Differential, Automated (05/01/2020 4:00 AM EST) [facility] ReVera Method Time Signature Neutrophils % 65.8 % [facility] Neutr Abs (ANC) 8.16 (H) 1.70 - [facility] 6.10 [facility] x10(3)/[facility] LABORATORY Lymphocytes % 13.1 % [facility] Lymphocytes Abs 1.6 0.9 - 3.2 [facility] x10(3)/[facility] LABORATORY Monocytes % 13.8 % [facility] Monocyte Abs 1.7 (H) 0.3 - 0.9 [facility] x10(3)/[facility] LABORATORY Eosinophils % 4.4 % [facility] Eosinophils Abs 0.5 (H) 0.0 - 0.4 [facility] x10(3)/[facility] LABORATORY Basophils % 0.6 % [facility] Basophils Abs 0.1 0.0 - 0.1 [facility] x10(3)/[facility] LABORATORY Immature Gran % 2.30 % [facility] Comment: Immature granulocytes(IG's)percentage an d absolute count will include metamyelocytes, myelocytes, and promyelo cytes. Blood smears from CBCs yielding IG's will be scanned manually for concor dance. If this scan disagrees with the automated IG or if promyelocytes are not ed, a manual differential will be performed. Blanca Gran Abs 0.28 (H) 0.00 - 0.04 x10(3)/[facility] LABORATORY Specimen Anatomical Collection Method Collection Time Receive d Time (Source) Location / / Volume Laterality Blood specimen 05/01/2020 4:00 AM 021 4:23 (specimen) EST AM EST Resulting Agency Comment Spec In Lab Orville Elaine MD HEMATOLOGY ORDERABLES Performing Organization Address City/State/[place] [address] (ABNORMAL) Hemogram (05/01/2020 4:00 AM EST) Analysis Performed At Patho logist Time Signature WBC 12.4 (H) 4.0 - 9.5 [facility] x10(3)/[facility] LABORATORY RBC 4.16 4.00 - [facility] 5.21 [facility] x10(6)/[facility] LABORATORY Hemoglobin 12.2 11.7 - [facility] 15.5 gm/dL [facility] Hematocrit 37.6 35.7 - [facility] 45.8 % [facility] MCV 90.4 82.6 - [facility] 94.4 [facility] LABORATORY MCH 29.3 27.1 - [facility] 32.0 pg [facility]ORY MCHC 32.4 31.7 - [facility] 35.0 gm/dL [facility] Platelets 223 145 - 357 [facility] x10(3)/[facility] LABORATORY RDWSD 46.6 (H) 37.0 - [facility] 46.0 [facility] LABORATORY RDWCV 14.1 11.5 - [facility] 14.1 % [facility] LABORATORY MPV 10.9 7.6 - 12.9 [facility] LABORATORY nRBC % Auto 0.0 % [facility] nRBC Abs Auto 0.000 0.000 - [place] [place] 0.000 [facility] x10(3)/[facility] LABORATORY Specimen Anatomical Collection Method Collection Time Receive d Time (Source) Location / / Volume Laterality Blood specimen 05/01/2020 4:00 AM 021 4:23 (specimen) EST AM EST Resulting Agency Comment Spec In Lab Orville Elaine MD HEMATOLOGY ORDERABLES Performing Organization Address City/[facility]/ZIP Code Phon e Number [address] Phosphorus (05/01/2020 4:00 AM EST) P athologist Signature Phosphorus 3.6 2.5 - 4.5 [facility] mg/dL [facility]ORY Specimen Anatomical Collection Method Collection Time Receive d Time (Source) Location / / Volume Laterality Blood specimen 05/01/2020 4:00 AM 021 4:23 (specimen) EST AM EST Resulting Agency Comment Spec In Lab Edwin Ayala MD CHEMISTRY ORDERABLES Performing Organization Address City/[facility]/ZIP Code Phon e Number [address] Magnesium (05/01/2020 4:00 AM EST) athologist Signature Magnesium 0.71 0.69 - 1.07 [facility] mmol/L [facility]ORY Specimen Anatomical Collection Method Collection Time Receive d Time (Source) Location / / Volume Laterality Blood specimen 05/01/2020 4:00 AM 021 4:23 (specimen) EST AM EST Resulting Agency Comment Spec In Lab Edwin Ayala MD CHEMISTRY ORDERABLES Performing Organization Address City/[facility]/ZIP [facility] [place] [address] (ABNORMAL) Basic Metabolic Panel (non-fasting) (05/01/2020 4:00 AM EST) athologist Signature Glucose Lvl 78 65 - 199 [facility] mg/dL [facility] Comment: Diabetes: >=200 mg/dL plus symp toms BUN 21 (H) 8 - 18 mg/dL [facility] Creatinine 1.49 (H) 0.70 - 1.20 mg/dL [facility] Sodium 134 (L) 135 - 145 mmol/L [facility] Potassium 3.9 3.5 - 5.0 mmol/L [facility] Comment: Please note: ??Patients with WBC >100,00 0 may have falsely elevated Potassium levels. ??For accurate Potassium quantif ication in these patients send serum separator tube (gold top) for subsequent determinations. ??Contact the Clinical Chemistry Laboratory if there are any qu estions. Chloride 101 98 - 107 mmol/L [facility] CO2 22 22 - 31 mmol/L [facility] Anion Gap 11 5 - 15 mmol/L [facility] Calcium 7.7 (L) 8.5 - 10.5 mg/dL [facility] Estimated GFR 35 (L) >=60 mL/min/1.73 m?? [facility] Comment: This patient? s estimated glomerular filtration rate (eGFR) is between 35 mL/min/1.73 m2 (patients with less muscl e mass) and 41 mL/min/1.73 m2 (patients with more muscle mass) [...] Location / / Volume Laterality Blood specimen 05/01/2020 4:00 AM 021 4:23 (specimen) EST AM EST Resulting Agency Comment Spec In Lab Edwin Ayala MD CHEMISTRY ORDERABLES Performing Organization Address City/State/[place] [address] (ABNORMAL) Differential, Automated (04/30/2020 3:51 AM EST) [facility] Method Time Signature Neutrophils % 68.2 % [facility] Neutr Abs (ANC) 8.93 (H) 1.70 - [facility] 6.10 [facility] x10(3)/[facility] L LABORATORY Lymphocytes % 15.5 % [facility] Lymphocytes Abs 2.0 0.9 - 3.2 [facility] x10(3)/[facility] LABORATORY Monocytes % 8.7 % [facility] Monocyte Abs 1.1 (H) 0.3 - 0.9 [facility] x10(3)/[facility] LABORATORY Eosinophils % 5.0 % [facility] Eosinophils Abs 0.7 (H) 0.0 - 0.4 [facility] x10(3)/[facility] LABORATORY Basophils % 0.6 % [facility] Basophils Abs 0.1 0.0 - 0.1 [facility] x10(3)/[facility] LABORATORY Immature Gran % 2.00 % [facility] Comment: Immature granulocytes(IG's)percentage an d absolute count will include metamyelocytes, myelocytes, and promyelo cytes. Blood smears from CBCs yielding IG's will be scanned manually for concor dance. If this scan disagrees with the automated IG or if promyelocytes are not ed, a manual differential will be performed. Blanca Gran Abs 0.26 (H) 0.00 - 0.04 x10(3)/[facility] LABORATORY Specimen Anatomical Collection Method Collection Time Receive d Time (Source) Location / / Volume Laterality Blood specimen 04/30/2020 3:51 AM 021 3:58 (specimen) EST AM EST Resulting Agency Comment Spec In Lab Orville Elaine MD HEMATOLOGY ORDERABLES Performing Organization Address City/State/[place] [address] (ABNORMAL) Hemogram (04/30/2020 3:51 AM EST) Analysis Performed At Patho logist Time Signature WBC 13.1 (H) 4.0 - 9.5 [facility] x10(3)/[facility] LABORATORY RBC 4.24 4.00 - [facility] 5.21 [facility] x10(6)/[facility] LABORATORY Hemoglobin 12.7 11.7 - [facility] 15.5 gm/dL [facility]ORY Hematocrit 38.2 35.7 - [facility] [place] 45.8 % [facility] LABORATORY MCV 90.1 82.6 - [facility] [place] 94.4 [facility] LABORATORY MCH 30.0 27.1 - [place] [place] 32.0 pg [facility] LABORATORY MCHC 33.2 31.7 - [place] [place] 35.0 gm/dL [facility]ORY Platelets 226 145 - 357 [facility] x10(3)/[facility] LABORATORY RDWSD 45.8 37.0 - [place] [place] 46.0 [facility] LABORATORY RDWCV 13.9 11.5 - [place] [place] 14.1 % [facility] LABORATORY MPV 10.5 7.6 - 12.9 [facility] [facility] LABORATORY nRBC % Auto 0.0 % [facility] LABORATORY nRBC Abs Auto 0.000 0.000 - ZAKIA ZHANG 0.000 [facility] x10(3)/[facility] LABORATORY Specimen Anatomical Collection Method Collection Time Receive d Time (Source) Location / / Volume Laterality Blood specimen 04/30/2020 3:51 AM 021 3:58 (specimen) EST AM EST Resulting Agency Comment Spec In Lab Orville Elaine MD HEMATOLOGY ORDERABLES Performing Organization Address City/State/[place] [address] Phosphorus (04/30/2020 3:51 AM EST) athologist Signature Phosphorus 3.3 2.5 - 4.5 [facility] mg/dL [facility] LABORATORY Comment: result rechecked-eloisa Specimen Anatomical Collection Method Collection Time Receive d Time (Source) Location / / Volume Laterality Blood specimen 04/30/2020 3:51 AM 021 3:58 (specimen) EST AM EST Resulting Agency Comment Spec In Lab Edwin Ayala MD CHEMISTRY ORDERABLES Performing Organization Address City/[facility]/[place] [address] (ABNORMAL) Magnesium (04/30/2020 3:51 AM EST) athologist Signature Magnesium 0.68 (L) 0.69 - 1.07 [facility] mmol/L [facility] LABORATORY Specimen Anatomical Collection Method Collection Time Receive d Time (Source) Location / / Volume Laterality Blood specimen 04/30/2020 3:51 AM 021 3:58 (specimen) EST AM EST Resulting Agency Comment Spec In Lab Edwin Ayala MD CHEMISTRY ORDERABLES Performing Organization Address City/State/[place] [address] (ABNORMAL) Basic Metabolic Panel (non-fasting) (04/30/2020 3:51 AM EST) P athologist Signature Glucose Lvl 89 65 - 199 [facility] mg/dL [facility] LABORATORY Comment: Diabetes: >=200 mg/dL plus symp toms BUN 18 8 - 18 mg/dL [facility] LABORATORY Creatinine 1.38 (H) 0.70 - 1.20 mg/dL [facility] LABORATORY Sodium 135 135 - 145 mmol/L [facility] LABORATORY Potassium 3.9 3.5 - 5.0 mmol/L [facility] LABORATORY Comment: Please note: ??Patients with WBC >100,00 0 may have falsely elevated Potassium levels. ??For accurate Potassium quantif ication in these patients send serum separator tube (gold top) for subsequent determinations. ??Contact the Clinical Chemistry Laboratory if there are any qu estions. Chloride 103 98 - 107 mmol/L [facility] LABORATORY CO2 21 (L) 22 - 31 mmol/L [facility] LABORATORY Anion Gap 11 5 - 15 mmol/L [facility] LABORATORY Calcium 7.3 (L) 8.5 - 10.5 mg/dL [facility] LABORATORY Estimated GFR 38 (L) >=60 mL/min/1.73 m?? [facility] LABORATORY Comment: This patient? s estimated glomerular filtration rate (eGFR) is between 38 mL/min/1.73 m2 (patients with less muscl e mass) and 44 mL/min/1.73 m2 (patients with more muscle mass) [...] Location / / Volume Laterality Blood specimen 04/30/2020 3:51 AM 021 3:58 (specimen) EST AM EST Resulting Agency Comment Spec In Lab Edwin Ayala MD CHEMISTRY ORDERABLES Performing Organization Address City/State/ZIP Code Phon e Number [place] [id number]OSPITAL LAB[address]ORY Drive (ABNORMAL) Differential, Automated (04/29/2020 1:39 AM EST) [facility] Method Time Signature Neutrophils % 69.8 % [facility] LABORATORY Neutr Abs (ANC) 8.63 (H) 1.70 - [facility] 6.10 [facility] x10(3)/[facility] LABORATORY Lymphocytes % 14.3 % [facility] LABORATORY Lymphocytes Abs 1.8 0.9 - 3.2 [facility] x10(3)/[facility] LABORATORY Monocytes % 11.1 % [facility] LABORATORY Monocyte Abs 1.4 (H) 0.3 - 0.9 [facility] x10(3)/[facility] LABORATORY Eosinophils % 3.0 % [facility] LABORATORY Eosinophils Abs 0.4 0.0 - 0.4 [facility] x10(3)/[facility] LABORATORY Basophils % 0.6 % [facility] LABORATORY Basophils Abs 0.1 0.0 - 0.1 [facility] x10(3)/[facility] LABORATORY Immature Gran % 1.20 % [facility] LABORATORY Comment: Immature granulocytes(IG's)percentage an d absolute count will include metamyelocytes, myelocytes, and promyelo cytes. Blood smears from CBCs yielding IG's will be scanned manually for concor dance. If this scan disagrees with the automated IG or if promyelocytes are not ed, a manual differential will be performed. Blanca Gran Abs 0.15 (H) 0.00 - 0.04 x10(3)/[facility] LABORATORY Specimen Anatomical Collection Method Collection Time Receive d Time (Source) Location / / Volume Laterality Blood specimen 04/29/2020 1:39 AM 021 1:46 (specimen) EST AM EST Resulting Agency Comment Spec In Lab Orville Elaine MD HEMATOLOGY ORDERABLES Performing Organization Address City/State/[place] [address] (ABNORMAL) Hemogram (04/29/2020 1:39 AM EST) Analysis Performed At Patho logist Time Signature WBC 12.4 (H) 4.0 - 9.5 [facility] x10(3)/[facility] LABORATORY RBC 4.11 4.00 - [facility] 5.21 [facility] x10(6)/[facility] LABORATORY Hemoglobin 12.2 11.7 - [facility] 15.5 gm/dL [facility] LABORATORY Hematocrit 37.8 35.7 - [facility] 45.8 % [facility] LABORATORY MCV 92.0 82.6 - [facility] 94.4 [facility] LABORATORY MCH 29.7 27.1 - [facility] 32.0 pg [facility] LABORATORY MCHC 32.3 31.7 - [facility] 35.0 gm/dL [facility] LABORATORY Platelets 200 145 - 357 [facility] x10(3)/[facility] LABORATORY RDWSD 47.9 (H) 37.0 - [facility] 46.0 [facility] LABORATORY RDWCV 14.1 11.5 - [facility] 14.1 % [facility] LABORATORY MPV 10.6 7.6 - 12.9 [facility] LABORATORY nRBC % Auto 0.0 % [facility] LABORATORY nRBC Abs Auto 0.000 0.000 - [facility] 0.000 [facility] x10(3)/[facility] LABORATORY Specimen Anatomical Collection Method Collection Time Receive d Time (Source) Location / / Volume Laterality Blood specimen 04/29/2020 1:39 AM 021 1:46 (specimen) EST AM EST Resulting Agency Comment Spec In Lab Orville Elaine MD HEMATOLOGY ORDERABLES Performing Organization Address City/[facility]/ZIP Code Phon e Number [address] (ABNORMAL) Phosphorus (04/29/2020 1:39 AM EST) athologist Signature Phosphorus 1.7 (L) 2.5 - 4.5 [facility] LABORATORY Specimen Anatomical Collection Method Collection Time Receive d Time (Source) Location / / Volume Laterality Blood specimen 04/29/2020 1:39 AM 021 1:46 (specimen) EST AM EST Resulting Agency Comment Spec In Lab Edwin Ayala MD CHEMISTRY ORDERABLES Performing Organization Address City/[facility]/ZIP Code Phon e Number [address] Magnesium (04/29/2020 1:39 AM EST) athologist Signature Magnesium 0.83 0.69 - 1.07 [facility] mmol/L [facility] LABORATORY Specimen Anatomical Collection Method Collection Time Receive d Time (Source) Location / / Volume Laterality Blood specimen 04/29/2020 1:39 AM 021 1:46 (specimen) EST AM EST Resulting Agency Comment Spec In Lab Edwin Ayala MD CHEMISTRY ORDERABLES Performing Organization Address City/[facility]/[place] [address] (ABNORMAL) Basic Metabolic Panel (non-fasting) (04/29/2020 1:39 AM EST) athologist Signature Glucose Lvl 101 65 - 199 [facility] mg/dL [facility] LABORATORY Comment: Diabetes: >=200 mg/dL plus symp toms BUN 23 (H) 8 - 18 mg/dL [facility] LABORATORY Creatinine 1.41 (H) 0.70 - 1.20 mg/dL [facility] LABORATORY Sodium 136 135 - 145 mmol/L [facility] LABORATORY Potassium 4.1 3.5 - 5.0 mmol/L [facility] LABORATORY Comment: Please note: ??Patients with WBC >100,00 0 may have falsely elevated Potassium levels. ??For accurate Potassium quantif ication in these patients send serum separator tube (gold top) for subsequent determinations. ??Contact the Clinical Chemistry Laboratory if there are any qu estions. Chloride 108 (H) 98 - 107 mmol/L [facility] LABORATORY CO2 21 (L) 22 - 31 mmol/L [facility] LABORATORY Anion Gap 7 5 - 15 mmol/L [facility] LABORATORY Calcium 7.4 (L) 8.5 - 10.5 mg/dL [facility] LABORATORY Estimated GFR 37 (L) >=60 mL/min/1.73 m?? [facility] LABORATORY Comment: This patient? s estimated glomerular filtration rate (eGFR) is between 37 mL/min/1.73 m2 (patients with less muscl e mass) and 43 mL/min/1.73 m2 (patients with more muscle mass) [...] Location / / Volume Laterality Blood specimen 04/29/2020 1:39 AM 021 1:46 (specimen) EST AM EST Resulting Agency Comment Spec In Lab Edwin Ayala MD CHEMISTRY ORDERABLES Performing Organization Address City/State/[place] [address] EKG 12 Lead (04/28/2020 3:14 PM EST) Component Value Ref Range Test Analysis Performed Pathologis t Method Time At Signature Ventricular rate 65 BPM MUSE SYSTEM Atrial Rate 65 BPM MUSE SYSTEM P-R Interval 122 ms MUSE SYSTEM QRS Duration 76 ms MUSE SYSTEM Q-T Interval 430 ms MUSE SYSTEM QTC Calculated 447 ms MUSE SYSTEM (Bezet) Calculated P [place] 65 degrees MUSE SYSTEM Calculated R [place] 39 degrees MUSE SYSTEM Calculated T [place] 60 degrees MUSE SYSTEM INTERPRETATION Sinus rhythm Occasional Premature ventricular complexe s MUSE SYSTEM Low voltage QRS Borderline ECG When compared with ECG of 24-APR-2020 22:04, PVC is now present Confirmed by MD Be, Jamie ([id number]) on 04/29/2020 11:11:17 AM Specimen Anatomical Collection Method Collection Time Receive d Time (Source) Location / / Volume Laterality 04/28/2020 3:14 PM EST 11:11 AM EST Edwin Ayala MD ECG ORDERABLES Performing Organization Address City/State/ZIP Code Phon e Number MUSE SYSTEM (ABNORMAL) Phosphorus (04/28/2020 4:45 AM EST) athologist Signature Phosphorus 1.9 (L) 2.5 - 4.5 [facility] LABORATORY Specimen Anatomical Collection Method Collection Time Receive d Time (Source) Location / / Volume Laterality Blood specimen 04/28/2020 4:45 AM 021 5:17 (specimen) EST AM EST Resulting Agency Comment Spec In Lab Edwin Ayala MD CHEMISTRY ORDERABLES Performing Organization Address City/[facility]/[place] [address] Magnesium (04/28/2020 4:45 AM EST) athologist Signature Magnesium 1.03 0.69 - 1.07 [facility] mmol/L [facility] LABORATORY Specimen Anatomical Collection Method Collection Time Receive d Time (Source) Location / / Volume Laterality Blood specimen 04/28/2020 4:45 AM 021 5:17 (specimen) EST AM EST Resulting Agency Comment Spec In Lab Edwin Ayala MD CHEMISTRY ORDERABLES Performing Organization Address City/[facility]/ZIP [facility] [place] [address] (ABNORMAL) Basic Metabolic Panel (non-fasting) (04/28/2020 4:45 AM EST) athologist Signature Glucose Lvl 120 65 - 199 [facility] mg/dL [facility] LABORATORY Comment: Diabetes: >=200 mg/dL plus symp toms BUN 27 (H) 8 - 18 mg/dL [facility] LABORATORY Creatinine 1.41 (H) 0.70 - 1.20 mg/dL [facility] LABORATORY Sodium 143 135 - 145 mmol/L [facility] LABORATORY Potassium 3.9 3.5 - 5.0 mmol/L [facility] LABORATORY Comment: Please note: ??Patients with WBC >100,00 0 may have falsely elevated Potassium levels. ??For accurate Potassium quantif ication in these patients send serum separator tube (gold top) for subsequent determinations. ??Contact the Clinical Chemistry Laboratory if there are any qu estions. Chloride 109 (H) 98 - 107 mmol/L [facility] LABORATORY CO2 23 22 - 31 mmol/L [facility] LABORATORY Anion Gap 11 5 - 15 mmol/L [facility] LABORATORY Calcium 8.0 (L) 8.5 - 10.5 mg/dL [facility] LABORATORY Estimated GFR 37 (L) >=60 mL/min/1.73 m?? [facility] LABORATORY Comment: This patient? s estimated glomerular filtration rate (eGFR) is between 37 mL/min/1.73 m2 (patients with less muscl e mass) and 43 mL/min/1.73 m2 (patients with more muscle mass) [...] Location / / Volume Laterality Blood specimen 04/28/2020 4:45 AM 021 5:17 (specimen) EST AM EST Resulting Agency Comment Spec In Lab Edwin Ayala MD CHEMISTRY ORDERABLES Performing Organization Address City/State/[place] [address] (ABNORMAL) Hemogram (04/28/2020 4:45 AM EST) Analysis Performed At Patho logist Time Signature WBC 13.3 (H) 4.0 - 9.5 [facility] x10(3[facility] LABORATORY RBC 4.26 4.00 - [facility] [place] 5.21 [facility] x10(6)/[facility] LABORATORY Hemoglobin 12.7 11.7 - [facility] 15.5 gm/dL [facility] LABORATORY Hematocrit 39.2 35.7 - [facility] 45.8 % [facility] LABORATORY MCV 92.0 82.6 - [facility] 94.4 [facility] LABORATORY MCH 29.8 27.1 - [facility] 32.0 pg [facility] LABORATORY MCHC 32.4 31.7 - [facility] 35.0 gm/dL [facility] LABORATORY Platelets 242 145 - 357 [facility] x10(3)/[facility] LABORATORY RDWSD 48.6 (H) 37.0 - [facility] 46.0 [facility] LABORATORY RDWCV 14.3 (H) 11.5 - [facility] 14.1 % [facility] LABORATORY MPV 10.8 7.6 - 12.9 [facility] LABORATORY nRBC % Auto 0.0 % [facility] LABORATORY nRBC Abs Auto 0.000 0.000 - [place] [place] 0.000 [facility] x10(3)/[facility] LABORATORY Specimen Anatomical Collection Method Collection Time Receive d Time (Source) Location / / Volume Laterality Blood specimen 04/28/2020 4:45 AM 021 5:17 (specimen) EST AM EST Resulting Agency Comment Spec In Lab Edwin Ayala MD HEMATOLOGY ORDERABLES Performing Organization Address City/State/[place] [address] Phosphorus (04/27/2020 2:20 AM EST) P athologist Signature Phosphorus 3.3 2.5 - 4.5 [facility] LABORATORY Specimen Anatomical Collection Method Collection Time Receive d Time (Source) Location / / Volume Laterality Blood specimen 04/27/2020 2:20 AM 021 2:45 (specimen) EST AM EST Resulting Agency Comment Spec In Lab Edwin Ayala MD CHEMISTRY ORDERABLES Performing Organization Address City/State/ZIP Code Phon e Number [address] Magnesium (04/27/2020 2:20 AM EST) athologist Signature Magnesium 0.95 0.69 - 1.07 [facility] mmol/L [facility] LABORATORY Specimen Anatomical Collection Method Collection Time Receive d Time (Source) Location / / Volume Laterality Blood specimen 04/27/2020 2:20 AM 021 2:45 (specimen) EST AM EST Resulting Agency Comment Spec In Lab Edwin Ayala MD CHEMISTRY ORDERABLES Performing Organization Address City/[facility] Code Phon e Number [address] (ABNORMAL) Basic Metabolic Panel (non-fasting) (04/27/2020 2:20 AM EST) athologist Signature Glucose Lvl 135 65 - 199 [facility] mg/dL [facility] LABORATORY Comment: Diabetes: >=200 mg/dL plus symp toms BUN 34 (H) 8 - 18 mg/dL [facility] LABORATORY Creatinine 1.61 (H) 0.70 - 1.20 mg/dL [facility] LABORATORY Sodium 145 135 - 145 mmol/L [facility] LABORATORY Potassium 3.7 3.5 - 5.0 mmol/L [facility] LABORATORY Comment: Please note: ??Patients with WBC >100,00 0 may have falsely elevated Potassium levels. ??For accurate Potassium quantif ication in these patients send serum separator tube (gold top) for subsequent determinations. ??Contact the Clinical Chemistry Laboratory if there are any qu estions. Chloride 107 98 - 107 mmol/L [facility] LABORATORY CO2 26 22 - 31 mmol/L [facility] LABORATORY Anion Gap 12 5 - 15 mmol/L [facility] LABORATORY Calcium 8.8 8.5 - 10.5 mg/dL [facility] LABORATORY Estimated GFR 32 (L) >=60 mL/min/1.73 m?? [facility] LABORATORY Comment: This patient? s estimated glomerular filtration rate (eGFR) is between 32 mL/min/1.73 m2 (patients with less muscl e mass) and 37 mL/min/1.73 m2 (patients with more muscle mass) [...] Location / / Volume Laterality Blood specimen 04/27/2020 2:20 AM 021 2:45 (specimen) EST AM EST Resulting Agency Comment Spec In Lab Edwin Ayala MD CHEMISTRY ORDERABLES Performing Organization Address City/State/[place] [address] (ABNORMAL) Hemogram (04/27/2020 2:20 AM EST) Analysis Performed At Patho logist Time Signature WBC 7.8 4.0 - 9.5 [facility] LABORATORY RBC 4.76 4.00 - [facility] [place] 5.21 [facility] x10(6)/[facility] LABORATORY Hemoglobin 14.0 11.7 - [facility] 15.5 gm/dL [facility] LABORATORY Hematocrit 44.1 35.7 - [facility] [place] 45.8 % [facility] LABORATORY MCV 92.6 82.6 - [facility] [place] 94.4 [facility] LABORATORY MCH 29.4 27.1 - [facility] [place] 32.0 pg [facility] LABORATORY MCHC 31.7 31.7 - [facility] 35.0 gm/dL [facility] LABORATORY Platelets 294 145 - 357 [facility] x[facility](3[facility] LABORATORY RDWSD 49.0 (H) 37.0 - [facility] [place] 46.0 [facility] LABORATORY RDWCV 14.3 (H) 11.5 - [facility] [place] 14.1 % [facility] LABORATORY MPV 10.4 7.6 - 12.9 [facility] LABORATORY nRBC % Auto 0.0 % [facility] LABORATORY nRBC Abs Auto 0.000 0.000 - ZAKIA ZHANG 0.000 [facility] x10(3)/[facility] LABORATORY Specimen Anatomical Collection Method Collection Time Receive d Time (Source) Location / / Volume Laterality Blood specimen 04/27/2020 2:20 AM 021 2:45 (specimen) EST AM EST Resulting Agency Comment Spec In Lab Edwin Ayala MD HEMATOLOGY ORDERABLES Performing Organization Address City/State/[place] [address] XR Abdomen 1 view (Generic) (04/26/2020 11:18 PM EST) Anatomical Region Laterality Modality Abdomen N/A Digital Radiography Specimen (Source) Anatomical Location Collection Method / Collectio n Time Received Time / Laterality Volume Impressions 04/27/2020 3:08 AM EST * ??Enteric contrast in multiple dilated small bowel loops. * ??No contrast visualized in the colon. Thank you for letting us participate in the care of this patient. For questions regarding this report, please contact e number below. ? Narrative 04/27/2020 3:08 AM EST EXAMINATION: XR ABDOMEN 1 VIEW (GENERIC) CLINICAL HISTORY: s/p contrast challenge . TECHNIQUE: Single frontal view of the abdomen COMPARISON: Abdominal radiographs 04/25/2020 and FINDINGS: Esophagogastric tube terminates in the s tomach. Enteric contrast in multiple dilated small bowel loops. Nonvisualizat ion of contrast in the ascending colon. Surgical clip projects over the right up per quadrant. Unchanged osseous structures. Procedure Note Blaze Brito MD - 04/27/2020Formattin g of this note might be different from the original. EXAMINATION: XR ABDOMEN 1 VIEW (GENERIC) CLINICAL HISTORY: s/p contrast challenge . TECHNIQUE: Single frontal view of the abdomen COMPARISON: Abdominal radiographs 04/25/2020 and FINDINGS: Esophagogastric tube terminates in the s tomach. Enteric contrast in multiple dilated small bowel loops. Nonvisualizat ion of contrast in the ascending colon. Surgical clip projects over the right up per quadrant. Unchanged osseous structures. IMPRESSION * Enteric contrast in multiple dilated s mall bowel loops. * No contrast visualized in the colon. Thank you for letting us participate in the care of this patient. For questions regarding this report, please contact [facility] number [facility]. Electronically signed by: Viviane Fitzgerald, [facility] ([phone]), at 04/27/2020 3:08 AM Edwin Ayala MD IMG DX ORDERABLES XR Abdomen 1 view (Generic) (04/26/2020 5:56 PM EST) Anatomical Region Laterality Modality Abdomen N/A Digital Radiography Specimen (Source) Anatomical Location Collection Method / Collectio n Time Received Time / Laterality Volume Impressions 04/26/2020 8:30 PM EST * ??Enteric contrast in multiple dilated small bowel loops (up to 4.4 cm). * ??No enteric contrast in the colon. Thank you for letting us participate in the care of this patient. For questions regarding this report, please contact e number below. ? Electronically signed by: Viviane Fitzgerald, [facility] ([phone]), at 04/26/2020 8:30 PM Narrative 04/26/2020 8:30 PM EST EXAMINATION: XR ABDOMEN 1 VIEW (GENERIC) CLINICAL HISTORY: s/p contrast challenge . SBO TECHNIQUE: Single frontal view of the abdomen COMPARISON: Abdominal radiographs 04/26/2020 0900 ho urs and 0047 hours FINDINGS: Esophagogastric tube terminates in the s tomach. Enteric contrast in multiple dilated small bowel loops. No enteric co ntrast in the colon. Unchanged osseous structures. Procedure Note Blaze Brito MD - 04/26/2020Formattin g of this note might be different from the original. EXAMINATION: XR ABDOMEN 1 VIEW (GENERIC) CLINICAL HISTORY: s/p contrast challenge . SBO TECHNIQUE: Single frontal view of the abdomen COMPARISON: Abdominal radiographs 04/26/2020 0900 ho urs and 0047 hours FINDINGS: Esophagogastric tube terminates in the s tomach. Enteric contrast in multiple dilated small bowel loops. No enteric co ntrast in the colon. Unchanged osseous structures. IMPRESSION * Enteric contrast in multiple dilated s mall bowel loops (up to 4.4 cm). * No enteric contrast in the colon. Thank you for letting us participate in the care of this patient. For questions regarding this report, please contact [facility] number below. Electronically signed by: Viviane Fitzgerald, [facility] ([phone]), at 04/26/2020 8:30 PM Edwin Ayala MD IMG DX ORDERABLES XR Abdomen 1 view (Generic) (04/26/2020 9:15 AM EST) Anatomical Region Laterality Modality Abdomen N/A Digital Radiography Specimen (Source) Anatomical Location Collection Method / Collectio n Time Received Time / Laterality Volume Impressions 04/26/2020 9:45 AM EST No significant change since 04/26/2020. Enteric contrast in multiple small bowel loops dilated up to 4.1 cm. No oral contrast visualized in the colon . Thank you for letting us participate in the care of this patient. For questions regarding this report, please contact e number below. ? Electronically signed by: Tamy Herring MD, [facility] ([phone]), at 04/26/2020 9:45 AM Narrative 04/26/2020 9:45 AM EST EXAMINATION: XR ABDOMEN 1 VIEW (GENERIC) CLINICAL HISTORY: SBO. f.u contrast chal lenge TECHNIQUE: Single frontal view of the ab domen, portable supine at 0900 hours COMPARISON: Multiple priors, most recent 04/26/2020 FINDINGS: Orogastric tube tip overlies left upper abdomen in region of gastric fundus, as before. Enteric contrast is seen in multiple dil ated small bowel loops (4.1 cm), in left abdomen and pelvis, as before. No oral contrast visualized in the colon , as before. Small amount of fecal material in nondil ated right colon. Small amount of gas in region of rectum. Free air not excluded on this supine exam. Unchanged osseous structures. Surgical clips right abdomen. Lung bases are clear. Procedure Note Tamy Santos MD - 0 EXAMINATION: XR ABDOMEN 1 VIEW (GENERIC) CLINICAL HISTORY: SBO. f.u contrast chal lenge TECHNIQUE: Single frontal view of the ab domen, portable supine at 0900 hours COMPARISON: Multiple priors, most recent 04/26/2020 FINDINGS: Orogastric tube tip overlies left upper abdomen in region of gastric fundus, as before. Enteric contrast is seen in multiple dil ated small bowel loops (4.1 cm), in left abdomen and pelvis, as before. No oral contrast visualized in the colon , as before. Small amount of fecal material in nondil ated right colon. Small amount of gas in region of rectum. Free air not excluded on this supine exam. Unchanged osseous structures. Surgical clips right abdomen. Lung bases are clear. IMPRESSION No significant change since 04/26/2020. Enteric contrast in multiple small bowel loops dilated up to 4.1 cm. No oral contrast visualized in the colon . Thank you for letting us participate in the care of this patient. For questions regarding this report, please contact e number below. Electronically signed by: Tamy Herring MD, [facility] ([phone]), at 04/26/2020 9:45 AM Edwin Ayala MD IMG DX ORDERABLES Phosphorus (04/26/2020 4:26 AM EST) athologist [facility] Phosphorus 3.5 2.5 - 4.5 [facility] mg/dL [facility] LABORATORY Specimen Anatomical Collection Method Collection Time Receive d Time (Source) Location / / Volume Laterality Blood specimen 04/26/2020 4:26 AM 020 4:39 (specimen) EST AM EST Resulting Agency Comment Spec In Lab Edwin Ayala MD CHEMISTRY ORDERABLES Performing Organization Address City/[facility]/ZIP Code Phon e Number [address] (ABNORMAL) Magnesium (04/26/2020 4:26 AM EST) athologist [facility] Magnesium 1.13 (H) 0.69 - 1.07 [facility] mmol/L [facility] LABORATORY Specimen Anatomical Collection Method Collection Time Receive d Time (Source) Location / / Volume Laterality Blood specimen 04/26/2020 4:26 AM 020 4:39 (specimen) EST AM EST Resulting Agency Comment Spec In Lab Edwin Ayala MD CHEMISTRY ORDERABLES Performing Organization Address City/State/[place] [address] (ABNORMAL) Basic Metabolic Panel (non-fasting) (04/26/2020 4:26 AM EST) athologist [facility] Glucose Lvl 173 65 - 199 [facility] mg/dL [facility] Comment: Diabetes: >=200 mg/dL plus symp toms BUN 36 (H) 8 - 18 mg/dL [facility] Creatinine 1.76 (H) 0.70 - 1.20 mg/dL [facility] LABOR[facility] Sodium 142 135 - 145 mmol/L [facility] Potassium 3.4 (L) 3.5 - 5.0 mmol/L [facility] Comment: Please note: ??Patients with WBC >100,00 0 may have falsely elevated Potassium levels. ??For accurate Potassium quantif ication in these patients send serum separator tube (gold top) for subsequent determinations. ??Contact the Clinical Chemistry Laboratory if there are any qu estions. Chloride 103 98 - 107 mmol/L [facility] LABORATORY CO2 26 22 - 31 mmol/L [facility] Anion Gap 13 5 - 15 mmol/L [facility] LABORATORY Calcium 9.2 8.5 - 10.5 mg/dL [facility] Estimated GFR 29 (L) >=60 mL/min/1.73 m?? [facility] Comment: This patient? s estimated glomerular filtration rate (eGFR) is between 29 mL/min/1.73 m2 (patients with less muscl e mass) and 33 mL/min/1.73 m2 (patients with more muscle mass) [...] Location / / Volume Laterality Blood specimen 04/26/2020 4:26 AM 020 4:39 (specimen) EST AM EST Resulting Agency Comment Spec In Lab Edwin Ayala MD CHEMISTRY ORDERABLES Performing Organization Address City/State/[place] [address] (ABNORMAL) Hemogram (04/26/2020 4:26 AM EST) Analysis Performed At Patho logist Time Signature WBC 7.5 4.0 - 9.5 [facility] x10(3)/[facility] LABORATORY RBC 4.97 4.00 - [facility] 5.21 [facility] x10(6)/[facility] LABORATORY Hemoglobin 14.6 11.7 - [facility] 15.5 gm/dL [facility] LABORATORY Hematocrit 44.8 35.7 - [facility] 45.8 % [facility] LABORATORY MCV 90.1 82.6 - ZAKIA ZHANG 94.4 [facility] LABORATORY MCH 29.4 27.1 - [place] ZHANG 32.0 pg [facility] MCHC 32.6 31.7 - [place] ZHANG 35.0 gm/dL [facility] Platelets 300 145 - 357 [place] ZHANG x10(3)/[facility] RDWSD 46.5 (H) 37.0 - [place] ZHANG 46.0 [facility] RDWCV 13.9 11.5 - [place] ZHANG 14.1 % [facility] MPV 9.9 7.6 - 12.9 [facility] ZHANG [facility] nRBC % Auto 0.0 % [facility] nRBC Abs Auto 0.000 0.000 - [place] ZHANG 0.000 [facility] x10(3)/[facility] LABORATORY Specimen Anatomical Collection Method Collection Time Receive d Time (Source) Location / / Volume Laterality Blood specimen 04/26/2020 4:26 AM 020 4:39 (specimen) EST AM EST Resulting Agency Comment Spec In Lab Edwin Ayala MD HEMATOLOGY ORDERABLES Performing Organization Address City/State/ZIP Code Phon e Number [place] [phone] XR Abdomen 1 view (Generic) (04/26/2020 1:00 AM EST) Anatomical Region Laterality Modality Abdomen N/A Digital Radiography Specimen (Source) Anatomical Location Collection Method / Collectio n Time Received Time / Laterality Volume Impressions 04/26/2020 3:29 AM EST Enteric contrast is seen in multiple small bowel loops dilated up to 4.1 cm. No definite visualization of contrast in e colon. Thank you for letting us participate in the care of this patient. For questions regarding this report, please contact [facility] number below. ? Electronically signed by: Viviane Fitzgerald, [facility] ([phone]), at 04/26/2020 3:29 AM Narrative 04/26/2020 3:29 AM EST EXAMINATION: XR ABDOMEN 1 VIEW (GENERIC) CLINICAL HISTORY: SBO. s/p Contrast chal munson TECHNIQUE: Single frontal view of the abdomen COMPARISON: Abdominal radiographs 04/25/2020 0609 ho urs and 1132 hours FINDINGS: Esophagogastric tube terminates in the s tomach. A surgical clip projects over the right upper quadrant. Enteric contrast is seen in multiple sma ll bowel loops dilated up to 4.1 cm. No definite visualization of contrast in th e colon. Unchanged osseous structures. Lung bases are clear. Procedure Note Blaze Brito MD - 04/26/2020Formattin g of this note might be different from the original. EXAMINATION: XR ABDOMEN 1 VIEW (GENERIC) CLINICAL HISTORY: SBO. s/p Contrast chal munson TECHNIQUE: Single frontal view of the abdomen COMPARISON: Abdominal radiographs 04/25/2020 0609 ho urs and 1132 hours FINDINGS: Esophagogastric tube terminates in the s tomach. A surgical clip projects over the right upper quadrant. Enteric contrast is seen in multiple sma ll bowel loops dilated up to 4.1 cm. No definite visualization of contrast in th e colon. Unchanged osseous structures. Lung bases are clear. IMPRESSION Enteric contrast is seen in multiple sma ll bowel loops dilated up to 4.1 cm. No definite visualization of contrast in th e colon. Thank you for letting us participate in the care of this patient. For questions regarding this report, please contact [facility] number below. Electronically signed by: Viviane Fitzgerald, [facility] ([phone]), at 04/26/2020 3:29 AM Edwin Ayala MD IMG DX ORDERABLES XR Abdomen 1 view (Generic) (04/25/2020 11:43 AM EST) Anatomical Region Laterality Modality Abdomen N/A Digital Radiography Specimen (Source) Anatomical Location Collection Method / Collectio n Time Received Time / Laterality Volume Impressions 04/25/2020 11:50 AM EST The NG tube and sidehole are in the stomach. Thank you for letting us participate in the care of this patient. For questions regarding this report, please contact th e number below. ? Electronically signed by: Spike To MD, [facility] ([phone]), at 04/25/2020 11:50 AM Narrative 04/25/2020 11:50 AM EST EXAMINATION: XR ABDOMEN 1 VIEW (GENERIC) CLINICAL HISTORY: ngt placement confirma tion TECHNIQUE: AP portable supine abdomen COMPARISON: 04/25/2020, earlier in the day. FINDINGS: Since the previous study, an NG tube has been placed with the tip and sidehole in the fundus of the stomach. There is l ess contrast in the stomach. Dilute contrast is visualized in multiple dilat ed loops of small bowel, similar to the earlier image. Procedure Note Spike To MD - 04/25/2020Format ting of this note might be different from the original. EXAMINATION: XR ABDOMEN 1 VIEW (GENERIC) CLINICAL HISTORY: ngt placement confirma tion TECHNIQUE: AP portable supine abdomen COMPARISON: 04/25/2020, earlier in the day. FINDINGS: Since the previous study, an NG tube has been placed with the tip and sidehole in the fundus of the stomach. There is l ess contrast in the stomach. Dilute contrast is visualized in multiple dilat ed loops of small bowel, similar to the earlier image. IMPRESSION The NG tube and sidehole are in the stom ach. Thank you for letting us participate in the care of this patient. For questions regarding this report, please contact e number below. Electronically signed by: Spike To MD, [facility] ([phone]), at 04/25/2020 11:50 AM Edwin Ayala MD IMG DX ORDERABLES Phosphorus (04/25/2020 7:30 AM EST) P athologist Signature Phosphorus 4.0 2.5 - 4.5 [facility] LABOR[facility]ORY Specimen Anatomical Collection Method Collection Time Receive d Time (Source) Location / / Volume Laterality Blood specimen 04/25/2020 7:30 AM 020 7:46 (specimen) EST AM EST Resulting Agency Comment Spec In Lab Edwin yAala MD CHEMISTRY ORDERABLES Performing Organization Address City/[facility]/ZIP Code Phon e Number [address] Magnesium (04/25/2020 7:30 AM EST) P athologist Signature Magnesium 1.03 0.69 - 1.07 [facility] mmol/L [facility] LABORATORY Specimen Anatomical Collection Method Collection Time Receive d Time (Source) Location / / Volume Laterality Blood specimen 04/25/2020 7:30 AM 020 7:46 (specimen) EST AM EST Resulting Agency Comment Spec In Lab Edwin Ayala MD CHEMISTRY ORDERABLES Performing Organization Address City/[facility]/ZIP Code Phon e Number [address] (ABNORMAL) Basic Metabolic Panel (non-fasting) (04/25/2020 7:30 AM EST) athologist Signature Glucose Lvl 154 65 - 199 [facility] mg/dL [facility] LABORATORY Comment: Diabetes: >=200 mg/dL plus symp toms BUN 38 (H) 8 - 18 mg/dL [facility] LABORATORY Creatinine 2.19 (H) 0.70 - 1.20 mg/dL [facility] LABORATORY Sodium 142 135 - 145 mmol/L [facility] Potassium 3.8 3.5 - 5.0 mmol/L [facility] Comment: Please note: ??Patients with WBC >100,00 0 may have falsely elevated Potassium levels. ??For accurate Potassium quantif ication in these patients send serum separator tube (gold top) for subsequent determinations. ??Contact the Clinical Chemistry Laboratory if there are any qu estions. Chloride 102 98 - 107 mmol/L [facility] LABORATORY CO2 25 22 - 31 mmol/L [facility] LABORATORY Anion Gap 15 5 - 15 mmol/L [facility] LABORATORY Calcium 9.4 8.5 - 10.5 mg/dL [facility]OR[facility] Estimated GFR 22 (L) >=60 mL/min/1.73 m?? [facility] LAB[facility] Comment: This patient? [...] Location / / Volume Laterality Blood specimen 04/25/2020 7:30 AM 020 7:46 (specimen) EST AM EST Resulting Agency Comment Spec In Lab Edwin Ayala MD CHEMISTRY ORDERABLES Performing Organization Address City/State/[place] [address] (ABNORMAL) Hemogram (04/25/2020 7:30 AM EST) Analysis Performed At Patho logist Time Signature WBC 11.5 (H) 4.0 - 9.5 [facility] x10(3)/[facility] LABORATORY RBC 4.77 4.00 - [place] 5.21 [facility] x10(6)/[facility] LABORATORY Hemoglobin 14.0 11.7 - [facility] 15.5 gm/dL [facility] LABORATORY Hematocrit 42.6 35.7 - [facility] 45.8 % [facility] LABORATORY MCV 89.3 82.6 - [facility] 94.4 fL [facility] LABORATORY MCH 29.4 27.1 - [place] 32.0 pg [facility] LABORATORY MCHC 32.9 31.7 - [facility] 35.0 gm/dL [facility] LABORATORY Platelets 336 145 - 357 [place] ZHANG x10(3)/[facility] LABORATORY RDWSD 46.1 (H) 37.0 - [place] 46.0 [facility] RDWCV 14.0 11.5 - [place] ZHANG 14.1 % [facility] MPV 10.1 7.6 - 12.9 [facility] Z[facility] nRBC % Auto 0.0 % [facility] nRBC Abs Auto 0.000 0.000 - [place] ZHANG 0.000 [facility] x10(3)/[facility] LABORATORY Specimen Anatomical Collection Method Collection Time Receive d Time (Source) Location / / Volume Laterality Blood specimen 04/25/2020 7:30 AM 020 7:46 (specimen) EST AM EST Resulting Agency Comment Spec In Lab Edwin Ayala MD HEMATOLOGY ORDERABLES Performing Organization Address City/State/ZIP Code Phon e Number [place] [phone] XR Abdomen 1 view (Generic) (04/25/2020 6:19 AM EST) Anatomical Region Laterality Modality Abdomen N/A Digital Radiography Specimen (Source) Anatomical Location Collection Method / Collectio n Time Received Time / Laterality Volume Impressions 04/25/2020 8:08 AM EST Contrast is present in the stomach and faintly in numerous loops of dilated small bowel but not in the decompressed colon consistent with small bowel obstruction. Thank you for letting us participate in the care of this patient. For questions regarding this report, please contact e number below. ? Electronically signed by: Spike To MD, [facility] ([phone]), at 04/25/2020 8:08 AM Narrative 04/25/2020 8:08 AM EST EXAMINATION: XR ABDOMEN 1 VIEW (GENERIC) CLINICAL HISTORY: Contrast administered at IN, assess contrast progression TECHNIQUE: AP portable supine abdomen COMPARISON: CT scan of the chest, abdomen and pelvis 04/24/2020. FINDINGS: Contrast is present in the stomach and f aintly in multiple dilated loops of small bowel. There is a paucity of gas i n the colon. No large bowel contrast seen. The findings are consistent with s mall bowel obstruction. There is a surgical clip projected over the right u pper quadrant. The lung bases are clear. Procedure Note Spike To MD - 04/25/2020Format ting of this note might be different from the original. EXAMINATION: XR ABDOMEN 1 VIEW (GENERIC) CLINICAL HISTORY: Contrast administered at IN, assess contrast progression TECHNIQUE: AP portable supine abdomen COMPARISON: CT scan of the chest, abdomen and pelvis 04/24/2020. FINDINGS: Contrast is present in the stomach and f aintly in multiple dilated loops of small bowel. There is a paucity of gas i n the colon. No large bowel contrast seen. The findings are consistent with s mall bowel obstruction. There is a surgical clip projected over the right u pper quadrant. The lung bases are clear. IMPRESSION Contrast is present in the stomach and f aintly in numerous loops of dilated small bowel but not in the decompressed colon consistent with small bowel obstruction. Thank you for letting us participate in the care of this patient. For questions regarding this report, please contact e number below. Electronically signed by: Spike To MD, [facility] ([phone]), at 04/25/2020 8:08 AM Aime Kebede MD IMG DX ORDERABLES EKG 12 Lead (04/24/2020 10:03 PM EST) Component Value Ref Range Test Analysis Performed Pathologis t Method Time At Signature Ventricular rate 68 BPM MUSE SYSTEM Atrial Rate 68 BPM MUSE SYSTEM P-R Interval 132 ms MUSE SYSTEM QRS Duration 82 ms MUSE SYSTEM Q-T Interval 438 ms MUSE SYSTEM QTC Calculated 465 ms MUSE SYSTEM (Bezet) Calculated P [place] 66 degrees MUSE SYSTEM Calculated R [place] 31 degrees MUSE SYSTEM Calculated T [place] 60 degrees MUSE SYSTEM INTERPRETATION Sinus rhythm Occasional Willie ature ventricular complexes and Premature atrial complexes MUSE SYSTEM Nonspecific ST and T wave abnormality Abnormal ECG When compared with ECG of 21-JUN-2019 10:33, Premature ventricular complexes are now Present Premature atrial complexes are now Present Confirmed by MD Evens, Regan Ortez ([id number]) on 04/25/2020 8:15: 32 AM Specimen Anatomical Collection Method Collection Time Receive d Time (Source) Location / / Volume Laterality 04/24/2020 10:03 04/25/2020 8:15 PM EST AM EST Aime Kebede MD ECG ORDERABLES Performing Organization Address City/State/ZIP Code Phon e Number MUSE SYSTEM L-Lactate2 Whole Blood (04/24/2020 9:04 PM EST) P athologist Signature Lactate WB 1.6 0.5 - 2.2 [facility] mmol/L [facility] LABORATORY Specimen Anatomical Collection Method Collection Time Receive d Time (Source) Location / / Volume Laterality Blood specimen 04/24/2020 9:04 PM 020 9:04 (specimen) EST PM EST Aime Kebede MD CHEMISTRY ORDERABLES Performing Organization Address City/[facility] [place] [address] COVID-19 PCR (04/24/2020 8:55 PM EST) Patholo gist Method Time Signature SARS-CoV-2 Not Detected Not Detected [facility] RNA PCR [facility] LABORATORY Comment: This result should be interpreted [...] using the Simplexa COVID-19 Direct Assay by [email or web address] [email or web address] as authorized by the FDA issued Emergency [...] Department of Pathology and Laboratory Medicine at [facility], certified under the Clinical Laboratory Improvement [...] clinical management guidance information are available at [facility] CDC Coronavirus Disease 2019 (COVID-19) webpage under Information fo r Healthcare Professionals (https://www.cdc.gov/coronavirus/2019-nc ov/hcp/index.html). Additional information about this and ot her EUA tests can be found in provider and patient fact sheets at the following FDA website: https://www.fda.gov/medical-devices/httvlxqybiu-vkaezgl-0822-pmrfx-62-gkigfdwee- jkt-kyouslovauhqbp-grhkegj-devices/euipn-cgqcdocbwbg-kujq SARS-CoV-2 Source [employer] [facility] LABORATORY Specimen (Source) Anatomical Collection Method Collection Time Re ceived Time Location / / Volume Laterality Nasopharyngeal swab 04/24/2020 8:55 04/24 (specimen) PM EST 9:12 PM EST Comment: Symptoms->Surveillance Resulting Agency Comment Spec In Lab Andrezjudah Titus [employer] MICROBIOLOGY - GENERAL ORDER AYAD Performing Organization Address City/State/Z[place] [address] Request For 2nd Read CT Chest Abdomen Pelvis (04/24/2020 8:01 PM EST) Anatomical Region Laterality Modality Chest, Abdomen, Pelvis SO Specimen (Source) Anatomical Location Collection Method / Collectio n Time Received Time / Laterality Volume Impressions 04/24/2020 9:13 PM EST 1. ??No focal consolidation, pleural effusion or pneumothorax. 2. ??Nonobstructing renal calculus in e midpole left kidney measuring 2 to 3 mm. 3. ??Lack of oral contrast limits evalua tion. 4. ??Diffusely dilated small bowel loops measuring up to 3.2 cm with nonvisualization of the transition point . However transition point is thought to be in the distal small bowel. Collapsed distal most portion of the terminal ileum and large bowel. 5. ??Oral contrast limits evaluation of the solid viscera and vasculature. 6. ??Redemonstration of the known thorac oabdominal aortic aneurysm measuring up to 5.4 x 4.1 cm as described. No definit myra periaortic fat stranding or mesenteric haziness to suggest leak. The se findings are similar to the prior study dated 10/17/2019. Recommend Doppler ultrasound for further evaluation. Thank you for letting us participate in the care of this patient. For questions regarding this report, please contact alejandra nicholson number below. ? Narrative 04/24/2020 9:13 PM EST EXAMINATION: REQUEST FOR 2ND READ CT CHEST ABDOMEN PELVIS CLINICAL HISTORY: ?SBO; What Modality is the exam? CT Scan; Body Part (please add comments as necessary): SHARI/ABD/PEL; Sending Institution [facility]; Date of exam [id number]; I belie ve a reinterpretation of this exam may alter care of Patient. Yes TECHNIQUE: Helical CT of the chest and a bdomen was performed without intravenous contrast. Oral contrast was not administ ered.. COMPARISON: CT abdomen and pelvis 020. FINDINGS: The absence of intravenous contrast limi ts the evaluation of solid viscera and vasculature. Chest: Lungs and large airways: Normal. Pleura: No effusion. Heart/vasculature: Scattered atheroscler otic coronary calcifications. Normal heart size without pericardial effusion. No thoracic aortic aneurysm. Atherosclerotic calcification throughout the aorta and its branches. Lymph nodes/Mediastinum/Cristiane: No bulky a denopathy. Lower neck: Normal thyroid gland. Chest wall: Unremarkable. Abdomen: Liver: Normal for noncontrast study with out lesions. Bile ducts: Nondilated. Gallbladder: A small subcentimeter layer ing gallstones. Normal caliber wall. Pancreas: Normal attenuation without doug prakash dilatation. Spleen: Normal for noncontrast study wit hout lesions. Adrenals: Normal. Kidneys: A 2 to 3 mm left lower pole non obstructing calculus. Left midpole hypodense lesion measuring centimeter co nsistent with a cyst. No hydronephrosis bilaterally. Vasculature: Thoracoabdominal aortic ane urysm which begins just proximal to the diaphragmatic hiatus and extends to aort ic bifurcation. The distal thoracic aorta measures up to 3.7 cm. Infrarenal abdominal aortic aneurysm component measures up to 5.4 x 4.1 cm (AP.TV), sim ilar to the prior study dated 10/17/2019. Just above the bifurcation, there is sta ble outpouching involving the left posterior lateral wall measuring 1.8 cm. There might be a small degree of calculation error due to tortuosity of a bdominal aorta. 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 Lymph Nodes: ??No bulky adenopathy. Bowel: Lack of oral contrast limits eval uation of the bowel. Fluid-filled dilated loops of small bowel are seen me asuring up to 3.2 cm in the anterior mid abdomen. The terminal ileum and colon ar e decompressed. No discrete transition point is identified. However it is thoug ht to be present in the terminal ileum. No free intraperitoneal air or pneumatos is. Peritoneum and mesentery: No ascites, fr ee air, or loculated fluid collection. Abdominal wall: Normal. Osseous structures: No suspicious lesion s. Diffuse osseous demineralization is noted with Hounsfield units measured at L1 which are in the range of osteopenia. Procedure Note Johnson Ruth MD - 04/24/2020Formatt ing of this note might be different from the original. EXAMINATION: REQUEST FOR 2ND READ CT SHARI ST ABDOMEN PELVIS CLINICAL HISTORY: ?SBO; What Modality is the exam? CT Scan; Body Part (please add comments as necessary): SHARI/ABD/PEL; Sending Institution [facility]; Date of exam [id number]; I belie ve a reinterpretation of this exam may alter care of Patient. Yes TECHNIQUE: Helical CT of the chest and a bdomen was performed without intravenous contrast. Oral contrast was not administ ered.. COMPARISON: CT abdomen and pelvis 020. FINDINGS: The absence of intravenous contrast limi ts the evaluation of solid viscera and vasculature. Chest: Lungs and large airways: Normal. Pleura: No effusion. Heart/vasculature: Scattered atheroscler otic coronary calcifications. Normal heart size without pericardial effusion. No thoracic aortic aneurysm. Atherosclerotic calcification throughout the aorta and its branches. Lymph nodes/Mediastinum/Cristiane: No bulky a denopathy. Lower neck: Normal thyroid gland. Chest wall: Unremarkable. Abdomen: Liver: Normal for noncontrast study with out lesions. Bile ducts: Nondilated. Gallbladder: A small subcentimeter layer ing gallstones. Normal caliber wall. Pancreas: Normal attenuation without doug prakash dilatation. Spleen: Normal for noncontrast study wit hout lesions. Adrenals: Normal. Kidneys: A 2 to 3 mm left lower pole non obstructing calculus. Left midpole hypodense lesion measuring centimeter co nsistent with a cyst. No hydronephrosis bilaterally. Vasculature: Thoracoabdominal aortic ane urysm which begins just proximal to the diaphragmatic hiatus and extends to aort ic bifurcation. The distal thoracic aorta measures up to 3.7 cm. Infrarenal abdominal aortic aneurysm component measures up to 5.4 x 4.1 cm (AP.TV), sim ilar to the prior study dated 10/17/2019. Just above the bifurcation, there is sta ble outpouching involving the left posterior lateral wall measuring 1.8 cm. There might be a small degree of calculation error due to tortuosity of a bdominal aorta. 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 Lymph Nodes: No bulky adenopathy. Bowel: Lack of oral contrast limits eval uation of the bowel. Fluid-filled dilated loops of small bowel are seen me asuring up to 3.2 cm in the anterior mid abdomen. The terminal ileum and colon ar e decompressed. No discrete transition point is identified. However it is thoug ht to be present in the terminal ileum. No free intraperitoneal air or pneumatos is. Peritoneum and mesentery: No ascites, fr ee air, or loculated fluid collection. Abdominal wall: Normal. Osseous structures: No suspicious lesion s. Diffuse osseous demineralization is noted with Hounsfield units measured at L1 which are in the range of osteopenia. IMPRESSION 1. No focal consolidation, pleural effus ion or pneumothorax. 2. Nonobstructing renal calculus in the midpole left kidney measuring 2 to 3 mm. 3. Lack of oral contrast limits evaluati on. 4. Diffusely dilated small bowel loops m easuring up to 3.2 cm with nonvisualization of the transition point . However transition point is thought to be in the distal small bowel. Collapsed distal most portion of the terminal ileum and large bowel. 5. Oral contrast limits evaluation of th e solid viscera and vasculature. 6. Redemonstration of the known thoracoa bdominal aortic aneurysm measuring up to 5.4 x 4.1 cm as described. No definit myra periaortic fat stranding or mesenteric haziness to suggest leak. The se findings are similar to the prior study dated 10/17/2019. Recommend Doppler ultrasound for further evaluation. Thank you for letting us participate in the care of this patient. For questions regarding this report, please contact e number below. Amy Ballesteros MD IMG OUTSIDE INTERPRETATION O RDERABLES ABORH Recheck Status (04/24/2020 8:00 PM EST) [facility] Method Time Signature ABORH Type Completed [facility] LABORATORY Specimen Anatomical Collection Method Collection Time Receive d Time (Source) Location / / Volume Laterality Blood specimen 04/24/2020 8:00 PM 020 8:13 (specimen) EST PM EST Resulting Agency Comment Spec In Lab Brent Juarez MD BLOOD BANK ORDERABLES Performing Organization Address City/State/ZIP Code Phon e Number [place] [phone] [facility] [address]ORY [address] (ABNORMAL) Differential, Automated (04/24/2020 8:00 PM EST) [facility] Method Time Signature Neutrophils % 80.4 % [facility] LABORATORY Neutr Abs (ANC) 6.69 (H) 1.70 - [facility] 6.10 [facility] x10(3)/[facility] L LABORATORY Lymphocytes % 8.8 % [facility] LABORATORY Lymphocytes Abs 0.7 (L) 0.9 - 3.2 [facility] x10(3)/[facility] LABORATORY Monocytes % 9.5 % [facility] LABORATORY Monocyte Abs 0.8 0.3 - 0.9 [facility] x10(3)/[facility] LABORATORY Eosinophils % 0.1 % [facility] LABORATORY Eosinophils Abs 0.0 0.0 - 0.4 [facility] x10(3)/[facility] LABORATORY Basophils % 0.7 % [facility] LABORATORY Basophils Abs 0.1 0.0 - 0.1 [facility] x10(3)/[facility] LABORATORY Immature Gran % 0.50 % [facility] LABORATORY Comment: Immature granulocytes(IG's)percentage an d absolute count will include metamyelocytes, myelocytes, and promyelo cytes. Blood smears from CBCs yielding IG's will be scanned manually for concor dance. If this scan disagrees with the automated IG or if promyelocytes are not ed, a manual differential will be performed. Blanca Gran Abs 0.04 0.00 - 0.04 x10(3)/mcL MAR Y [facility] LABORATORY Specimen Anatomical Collection Method Collection Time Receive d Time (Source) Location / / Volume Laterality Blood specimen 04/24/2020 8:00 PM 020 8:20 (specimen) EST PM EST Resulting Agency Comment Spec In Lab Andrez Titus APRN HEMATOLOGY ORDERABLES Performing Organization Address City/State/ZIP Code Phon e Number [place] [phone] [facility] [address] Hemogram (04/24/2020 8:00 PM EST) P athologist Signature WBC 8.3 4.0 - 9.5 [facility] x10(3[facility] LABORATORY RBC 4.87 4.00 - [place]IA [place] 5.21 [facility] x10(6)/[facility] LABORATORY Hemoglobin 14.4 11.7 - [place] 15.5 gm/dL [facility] LABORATORY Hematocrit 43.5 35.7 - [place] 45.8 % [facility] LABORATORY MCV 89.3 82.6 - [facility] [place] 94.4 [facility] LABORATORY MCH 29.6 27.1 - [place] 32.0 pg [facility] LABORATORY MCHC 33.1 31.7 - [place] 35.0 gm/dL [facility] LABORATORY Platelets 317 145 - 357 [facility] x10(3)/[facility] LABORATORY RDWSD 44.7 37.0 - [facility] [place] 46.0 [facility] LABORATORY RDWCV 13.7 11.5 - [facility] 14.1 % [facility] LABORATORY MPV 9.8 7.6 - 12.9 [facility] LABORATORY nRBC % Auto 0.0 % [facility] LABORATORY nRBC Abs Auto 0.000 0.000 - [place] 0.000 [facility] x10(3)/[facility] LABORATORY Specimen Anatomical Collection Method Collection Time Receive d Time (Source) Location / / Volume Laterality Blood specimen 04/24/2020 8:00 PM 020 8:20 (specimen) EST PM EST Resulting Agency Comment Spec In Lab Andrez Titus APRN HEMATOLOGY ORDERABLES Performing Organization Address City/State/ZIP Code Phon e Number [address] Antibody screen (04/24/2020 8:00 PM EST) Patholo gist Method Time Signature Ab Screen Negative [facility] LABORATORY Expires at 04/27/2020 ZAKIA ZHANG [id number] on: [facility] LABORATORY Specimen Anatomical Collection Method Collection Time Receive d Time (Source) Location / / Volume Laterality Blood specimen 04/24/2020 8:00 PM 020 8:13 (specimen) EST PM EST Resulting Agency Comment Spec In Lab Brent Juarez MD BLOOD BANK ORDERABLES Performing Organization Address City/[facility]/[place] [address] ABO/Rh Typing (04/24/2020 8:00 PM EST) P athologist Signature ABORh Type A Pos [facility] LABORATORY Specimen Anatomical Collection Method Collection Time Receive d Time (Source) Location / / Volume Laterality Blood specimen 04/24/2020 8:00 PM 8:13 (specimen) EST PM EST Resulting Agency Comment Spec In Lab Brent Juarez MD BLOOD BANK ORDERABLES Performing Organization Address City/[facility] [place] [address] Phosphorus (04/24/2020 8:00 PM EST) P athologist Signature Phosphorus 3.8 2.5 - 4.5 [facility] mg/dL [facility] LABORATORY Specimen Anatomical Collection Method Collection Time Receive d Time (Source) Location / / Volume Laterality Blood specimen 04/24/2020 8:00 PM 8:20 (specimen) EST PM EST Resulting Agency Comment Spec In Lab Andrez Bacaicoa STAGE ELECTRICIAN HELPER CHEMISTRY ORDERABLES Performing Organization Address City/[facility]/[place] [address] Magnesium (04/24/2020 8:00 PM EST) P athologist Signature Magnesium 0.94 0.69 - 1.07 [facility] mmol/L [facility] LABORATORY Specimen Anatomical Collection Method Collection Time Receive d Time (Source) Location / / Volume Laterality Blood specimen 04/24/2020 8:00 PM 8:20 (specimen) EST PM EST Resulting Agency Comment Spec In Lab Andrez Bacaicoa STAGE ELECTRICIAN HELPER CHEMISTRY ORDERABLES Performing Organization Address City/[facility]/[place] [address] APTT (04/24/2020 8:00 PM EST) athologist Signature PTT 29 25 - 37 sec [facility] LABORATORY Comment: The PTT is NOT appropriate for heparin m onitoring. Use the Anti-Xa level for heparin monitoring (HEP UFH) or LMWH mon itoring (HEP LMW). A PTT less than 37 seconds generally indicates adequate hem ostasis. Specimen Anatomical Collection Method Collection Time Receive d Time (Source) Location / / Volume Laterality Blood specimen 04/24/2020 8:00 PM 020 8:20 (specimen) EST PM EST Resulting Agency Comment Spec In Lab Andrez Vasquezmtdaphnie NELSONN HEMATOLOGY ORDERABLES Performing Organization Address City/[facility]/ZIP Code Phon e Number [address] (ABNORMAL) Prothrombin Time (04/24/2020 8:00 PM EST) athologist Signature PT 12.7 (H) 9.4 - 12.5 [facility] LABORATORY INR 1.1 [facility] LABORATORY Comment: An INR <2.0 indicates adequate procoagul ant activity for hemostasis in most patients without underlying bleeding dis orders, though the INR may not adequately reflect hemostatic capacity i n patients with liver disease and synthetic impairment. The recommended ta rget INR range for therapeutic anticoagulation is 2.0 ? 3.0 for most applications, though lower and higher ranges may be appropriate depending on c linical circumstances. Specimen Anatomical Collection Method Collection Time Receive d Time (Source) Location / / Volume Laterality Blood specimen 04/24/2020 8:00 PM 020 8:20 (specimen) EST PM EST Resulting Agency Comment Spec In Lab Andrez Vasquezmtdaphnie [employer]AGE ELECT[employer] HELPER HEMATOLOGY ORDERABLES Performing Organization Address City/[facility]/ZIP Code Phon e Number [address] Lipase (04/24/2020 8:00 PM EST) athologist Signature Lipase 19 0 - 60 [facility] unit/L [facility] LABORATORY Specimen Anatomical Collection Method Collection Time Receive d Time (Source) Location / / Volume Laterality Blood specimen 04/24/2020 8:00 PM 020 8:20 (specimen) EST PM EST Resulting Agency Comment Spec In Lab Andrez Vasquezcoa STAGE ELECTRICIAN HELPER CHEMISTRY ORDERABLES Performing Organization Address City/[facility]/[place] [address] Hepatic Function Panel (04/24/2020 8:00 PM EST) athologist Signature Total Protein 6.8 6.1 - 8.0 [facility] gm/dL [facility] LABORATORY Albumin 3.9 3.2 - 5.2 [facility] gm/dL [facility] LABORATORY AST 14 0 - 30 [facility] unit/L [facility] ALT 7 0 - 30 [facility] unit/L [facility] LABORATORY Alk Phos 80 35 - 105 [facility] unit/L [facility] LABORATORY Total 0.4 0.2 - 1.3 [facility] Bilirubin mg/dL [facility] LABORATORY Bili, Direct 0.1 0.0 - 0.3 [facility] mg/dL [facility] LABORATORY Specimen Anatomical Collection Method Collection Time Receive d Time (Source) Location / / Volume Laterality Blood specimen 04/24/2020 8:00 PM 8:20 (specimen) EST PM EST Resulting Agency Comment Spec In Lab Andrez Titus STAGE ELECTRICIAN HELPER CHEMISTRY ORDERABLES Performing Organization Address [facility] [place] [address] (ABNORMAL) Basic Metabolic Panel (non-fasting) (04/24/2020 8:00 PM EST) athologist Signature Glucose Lvl 130 65 - 199 [facility] LABORATORY Comment: Diabetes: >=200 mg/dL plus symp toms BUN 30 (H) 8 - 18 mg/dL [facility] LABORATORY Creatinine 2.19 (H) 0.70 - 1.20 mg/dL [facility] LABORATORY Sodium 143 135 - 145 mmol/L [facility] LABORATORY Potassium 3.9 3.5 - 5.0 mmol/L [facility] LABORATORY Comment: Please note: ??Patients with WBC >100,00 0 may have falsely elevated Potassium levels. ??For accurate Potassium quantif ication in these patients send serum separator tube (gold top) for subsequent determinations. ??Contact the Clinical Chemistry Laboratory if there are any qu estions. Chloride 106 98 - 107 mmol/L [facility] LABORATORY CO2 25 22 - 31 mmol/L [facility] LABORATORY Anion Gap 12 5 - 15 mmol/L [facility] LABORATORY Calcium 9.0 8.5 - 10.5 mg/dL [facility] LABORATORY Estimated GFR 22 (L) >=60 mL/min/1.73 m?? [facility] LABORATORY Comment: This patient? [...] Location / / Volume Laterality Blood specimen 04/24/2020 8:00 PM 020 8:20 (specimen) EST PM EST Resulting Agency Comment Spec In Lab Andrez Titus APRN CHEMISTRY ORDERABLES Performing Organization Address City/State/[place] [address] POCT urine dipstick (04/24/2020) [facility] gist Method Time Signature POC Sp [place] 1.015 1.002 - 1.030 POC pH, UA 5 5.0 - 8.5 POC Leuk, UA neg Negative - Negative POC Nitrite, neg Negative - UA Negative POC Protein, 500 Negative - UA Negative mg/dL POC Glucose, normal Normal - UA Normal mg/dL POC Ketone, UA negative Negative - Negative POC Urobil, UA negative 0.2 - 1.0 mg/dL POC Bili, UA negative Negative - Negative POC Blood, UA negative Negative - Negative mikie/uL Specimen (Source) Anatomical Location Collection Method / Collectio n Time Received Time / Laterality Volume 04/24/2020 Andrez Titus APRN POINT OF CARE TEST ORDERABLE S documented in this encounter Visit Diagnoses Diagnosis SBO (small bowel obstruction) Unspecified intestinal obstruction Bradycardia Other specified cardiac dysrhythmias documented in this encounter Admitting Diagnoses Diagnosis SBO (small bowel obstruction) Unspecified intestinal obstruction documented in this encounter Administered Medications Inactive Administered Medications - up to 3 most recent administrations Medication Order MAR Action Action Date Dose Rate Site acetaminophen (Ofirmev) (10 Given 04/25/2020 5:39 PM EST 650 mg 260 mL/hr mg/mL) infusion 650 mg 650 mg, Intravenous, at 260 mL/hr, EVERY 6 HOURS SCHEDULED, 3 doses, First dose (after last reorder) on Thu04/25/20 at 0600, Last dose on Thu04/25/20 at 1800, Maximum dose of acetaminophen is 4000 mg from all sources in 24 hours. When ordered for pain, acetaminophen should be given even when other ordered pain medications are indicated. , Routine, Is ketorolac (Toradol) IV contraindicated? Yes, Can this patient tolerate oral medications or suppositories? No Given 04/25/2020 12:40 PM EST 650 mg 260 mL/hr acetaminophen (Ofirmev) (1000 Given 04/24/2020 11:09 PM EST 1,00 0 mg 400 mL/hr mg/100 mL) infusion 1,000 mg 1,000 mg, Intravenous, at 400 mL/hr, EVERY 6 HOURS SCHEDULED, 4 doses, First dose on Thu04/24/20 at 2216, Last dose on Thu04/25/20 at 1800, Maximum dose of acetaminophen is 4000 mg from all sources in 24 hours. When ordered for pain, acetaminophen should be given even when other ordered pain medications are indicated. , Routine, Is ketorolac (Toradol) IV contraindicated? Yes, Can this patient tolerate oral medications or suppositories? No acetaminophen (Ofirmev) (1000 Given 04/27/2020 6:24 PM EST 1,000 mg 400 mL/hr mg/100 mL) infusion 1,000 mg 1,000 mg, Intravenous, at 400 mL/hr, EVERY 6 HOURS SCHEDULED, 4 doses, First dose on Thu04/27/20 at 0215, Last dose on Thu04/27/20 at 1800, Maximum dose of acetaminophen is 4000 mg from all sources in 24 hours. When ordered for pain, acetaminophen should be given even when other ordered pain medications are indicated. , Routine, Is ketorolac (Toradol) IV contraindicated? Yes, Can this patient tolerate oral medications or suppositories? No Given 04/27/2020 12:53 PM EST 1,000 mg 400 mL/hr Given 04/27/2020 5:18 AM EST 1,000 mg 400 mL/hr acetaminophen (Tylenol) tablet 1,000 mg Given 04/29/2020 5:23 AM EST 1,000 mg 1,000 mg, Oral, EVERY 6 HOURS SCHEDULED, First dose on Thu04/28/20 at 0000, Until Discontinued Given 04/29/2020 12:13 AM EST 1,000 mg Given 04/28/2020 5:25 PM EST 1,000 mg acetaminophen (Tylenol) tablet 650 mg Given 04/30/2020 8:09 PM EST 650 mg 650 mg, Oral, EVERY 6 HOURS, First dose (after last modification) on Thu04/29/20 at 1230, Until Discontinued, Maximum dose of acetaminophen is 4000 mg from all sources in 24 hours. When ordered for pain, acetaminophen should be given even when other ordered pain medications are indicated. , Routine Given 04/30/2020 12:47 PM EST 650 mg Given 04/30/2020 6:55 AM EST 650 mg amLODIPine (Norvasc) tablet 5 mg Given 05/01/2020 8:28 AM EST 5 mg 5 mg, Oral, DAILY, First dose on Thu04/25/20 at 0900, Until Discontinued, Routine Given 04/30/2020 9:01 AM EST 5 mg Given 04/29/2020 9:03 AM EST 5 mg aspirin EC tablet 81 mg Given 05/01/2020 8:28 AM EST 81 mg 81 mg, Oral, DAILY, First dose on Thu04/25/20 at 0900, Until Discontinued, Routine Given 04/30/2020 9:01 AM EST 81 mg Given 04/29/2020 9:03 AM EST 81 mg atorvastatin (Lipitor) tablet 20 mg Given 04/30/2020 5:11 PM EST 20 mg 20 mg, Oral, EVERY EVENING, First dose on Thu04/25/20 at 1700, Until Discontinued, Routine Given 04/29/2020 6:28 PM EST 20 mg Given 04/28/2020 4:29 PM EST 20 mg bisacodyL (Dulcolax) suppository 10 mg Given 04/30/2020 9:03 AM EST 10 mg 10 mg, Rectal, DAILY, First dose on Thu04/30/20 at 0900, Until Discontinued, Routine carvediloL (Coreg) tablet 12.5 mg Given 05/01/2020 8:28 AM EST 12.5 mg 12.5 mg, Oral, 2 TIMES DAILY WITH MEALS, First dose on Thu04/25/20 at 0800, Until Discontinued, Routine Given 04/30/2020 5:11 PM EST 12.5 mg Given 04/30/2020 9:01 AM EST 12.5 mg dextrose 5% and sodium chloride New Bag 04/29/2020 6:49 PM EST 50 mL/hr 50 mL/hr 0.45% with potassium chloride 20 mEq infusion 50 mL/hr, Intravenous, CONTINUOUS, Starting on Thu04/27/20 at 1215, Until Thu04/30/20 at 0800, Warning Vesicant/Irritant Medication Rate/Dose Change 04/29/2020 9:53 AM EST 50 mL/hr 50 mL/hr New Bag 04/28/2020 1:07 PM EST 75 mL/hr 75 mL/hr furosemide (Lasix) tablet 20 mg Given 05/01/2020 8:29 AM EST 20 mg 20 mg, Oral, 2 TIMES DAILY, First dose on Thu04/29/20 at 1030, Until Discontinued, Routine Given 04/30/2020 8:09 PM EST 20 mg Given 04/30/2020 9:01 AM EST 20 mg gabapentin (Neurontin) capsule 100 mg Given 04/30/2020 8:09 PM EST 100 mg 100 mg, Oral, NIGHTLY, First dose on Thu04/25/20 at 2100, Until Discontinued, Routine Given 04/29/2020 8:48 PM EST 100 mg Given 04/28/2020 8:44 PM EST 100 mg heparin (porcine) (5,000 units/1 mL) Given 04/30/2020 8:09 PM ES T 5,000 Units subcutaneous injection 5,000 Units 5,000 Units, Subcutaneous, EVERY 12 HOURS SCHEDULED, First dose on Thu04/25/20 at 0112, Until Discontinued, Routine Given 04/30/2020 9:03 AM EST 5,000 Units Given 04/29/2020 8:48 PM EST 5,000 Units hydrALAZINE (Apresoline) (20 mg/mL) injection Given 6:23 PM EST 20 mg 20 mg 20 mg, Intravenous, EVERY 4 HOURS PRN, Starting on Cinthia 04/26/20 at 0521, Until Cinthia 04/26/20 at 1831, High Blood Pressure, Administer for SBP >160 after PRN labetalol Given 04/26/2020 9:28 AM EST 20 mg hydrALAZINE (Apresoline) (20 mg/mL) injection Given 5:54 PM EST 20 mg 20 mg 20 mg, Intravenous, EVERY 2 HOURS PRN, Starting on Cinthia 04/26/20 at 1845, Until Thu04/30/20 at 1125, High Blood Pressure, Administer for SBP >160 after PRN labetalol, hold for HR >90 Given 04/27/2020 7:35 PM EST 20 mg hydrALAZINE (Apresoline) (20 mg/mL) injection 5 Given 04/26/2020 2:09 AM EST 5 mg mg 5 mg, Intravenous, EVERY 6 HOURS PRN, Starting on Cinthia 04/26/20 at 0153, Until Cinthia 04/26/20 at 0505, High Blood Pressure, Administer for SBP >160 after PRN labetalol hydrALAZINE (Apresoline) tablet 25 mg Given 05/01/2020 8:35 AM EST 25 mg 25 mg, Oral, 3 TIMES DAILY, First dose on Thu04/29/20 at 1030, Until Discontinued, Take with Food, Routine Given 04/30/2020 8:09 PM EST 25 mg Given 04/30/2020 3:46 PM EST 25 mg HYDROmorphone (Dilaudid) (2 mg/mL) multi-dose Given 2:29 AM EST 0.2 mg injection solution 0.2-0.4 mg 0.2-0.4 mg, Intravenous, EVERY 5 MIN PRN, Starting on Thu04/27/20 at 0158, Until Thu04/27/20 at 0406, Pain, Give 0.2 mg every 5 minutes PRN for mild to moderate pain (1-5) Give 0.4 mg every 5 minutes PRN for moderate to severe pain (6-10). Hold for respiratory rate less than 10 per minute. Maximum dose 4 mg over one hour. If multiple pain medications are ordered, start with hydromorphone or morphine and use fentanyl for breakthrough pain., PACU Recovery, Routine Given 04/27/2020 2:18 AM EST 0.2 mg HYDROmorphone (Dilaudid) 0.5 mg/0.5 mL Given 04/29/2020 2:14 PM EST 0.2 mg injection 0.2 mg 0.2 mg, Intravenous, EVERY 4 HOURS PRN, Starting on Thu04/29/20 at 0945, Until Thu04/29/20 at 2144, Pain, Routine Given 04/29/2020 10:14 AM EST 0.2 mg HYDROmorphone (Dilaudid) 0.5 mg/0.5 mL Given 04/26/2020 4:15 AM EST 0.3 mg injection 0.3 mg 0.3 mg, Intravenous, EVERY 3 HOURS PRN, Starting on Thu04/24/20 at 2213, Until Cinthia 04/26/20 at 0428, Pain, Routine Given 04/25/2020 10:21 PM EST 0.3 mg Given 04/25/2020 5:47 PM EST 0.3 mg HYDROmorphone (Dilaudid) 0.5 mg/0.5 mL Given 04/29/2020 5:24 AM EST 0.4 mg injection 0.4 mg 0.4 mg, Intravenous, EVERY 3 HOURS PRN, Starting on Cinthia 04/26/20 at 0428, Until Thu04/29/20 at 0941, Pain, Routine Given 04/26/2020 9:01 PM EST 0.4 mg Given 04/26/2020 5:14 PM EST 0.4 mg iohexoL (Omnipaque) (300 mg/mL) injection Given 04/25/2020 12:19 AM EST 50 mLs solution 50 mL 50 mL, Oral, ONCE, 1 dose, On Thu04/25/20 at 0019, Warning Vesicant/Irritant Medication , Routine iohexoL (Omnipaque) (300 mg/mL) injection Given 04/25/2020 7:00 PM EST 50 mLs solution 50 mL 50 mL, Per NG tube, ONCE, 1 dose, On Thu04/25/20 at 1945, Warning Vesicant/Irritant Medication , STAT labetaloL (Normodyne) (5 mg/mL) injection Given 04/25/2020 10:11 PM EST 10 mg solution 10 mg 10 mg, Intravenous, EVERY 2 HOURS PRN, Starting on Thu04/25/20 at 1631, Until Thu04/26/20 at 0521, High Blood Pressure, SBP > 160, Routine Given 04/25/2020 8:11 PM EST 10 mg Given 04/25/2020 5:54 PM EST 10 mg labetaloL (Normodyne) (5 mg/mL) injection Given 04/29/2020 12:14 AM EST 20 mg solution 20 mg 20 mg, Intravenous, EVERY 2 HOURS PRN, Starting on Thu04/26/20 at 0521, Until Thu04/30/20 at 1125, High Blood Pressure, SBP > 160, Routine Given 04/28/2020 9:31 AM EST 20 mg Given 04/27/2020 6:53 PM EST 20 mg lactated ringers infusion New Bag 04/27/2020 2:29 AM EST 75 mL/hr 75 mL/hr 75 mL/hr, Intravenous, CONTINUOUS, Starting on Thu04/24/20 at 2216, Until Thu04/27/20 at 1127 New Bag 04/27/2020 12:30 AM EST New Bag 04/26/2020 7:26 PM EST 75 mL/hr 75 mL/hr levothyroxine (Synthroid) tablet 75 mcg Given 05/01/2020 6:46 AM EST 75 mcg 75 mcg, Oral, DAILY, First dose on Thu04/25/20 at 0900, Until Discontinued, Routine Given 04/30/2020 7:41 AM EST 75 mcg Given 04/29/2020 9:03 AM EST 75 mcg lidocaine ((GLYDO)) 2 % gel 11 mL Given 04/25/2020 11:00 AM EST 11 mLs 11 mL, INTRA-URETHRAL, ONCE, 1 dose, On Thu04/25/20 at 1100, STAT lidocaine (Lidoderm) 5 % Patch Applied 04/30/2020 11:27 PM 1 patch 13- Abdomen topical patch 3 patch EST (Left) 3 patch, Transdermal, EVERY 24 HOURS, First dose on Thu04/29/20 at 2330, Until Discontinued, Apply patch(es) for 12 hours, and then remove for 12 hours., Routine Patch Applied 04/29/2020 10:55 PM EST 1 patch 13- Abdomen (Left) lidocaine (Lidoderm) topical patch REMOV AL Transdermal, EVERY 24 HOURS, First dose on Thu04/30/20 at 1045, Until Discontinued, Remove lidocaine 5% patch melatonin tablet 3 mg Given 04/25/2020 2:20 AM EST 3 mg 3 mg, Oral, NIGHTLY PRN, Starting on Thu04/25/20 at 0111, Until Thu05/01/20 at 1546, For sleep, Routine ondansetron (pf) (Zofran) (2 mg/mL) injection Given 04/27/19 1:30 AM EST 4 mg 4-8 mg 4-8 mg, Intravenous, EVERY 8 HOURS PRN, Starting on Thu04/25/20 at 0110, Until Thu04/30/20 at 1125, Nausea, Start with 4mg and if ineffective in 30 minutes, give an additional 4mg If multiple antiemetics are ordered, give ondansetron first. Given 04/26/2020 6:40 AM EST 4 mg Given 04/25/2020 3:53 AM EST 4 mg oxyCODONE (Roxicodone) tablet 10-15 mg Given 04/30/2020 10:09 PM EST 10 mg 10-15 mg, Oral, EVERY 4 HOURS PRN, Starting on Thu04/29/20 at 2244, Until Thu05/01/20 at 1546, Pain, severe pain (7-10), Initial dose 10mg. If pain control not adequate in 60 minutes, give additional 5mg, Routine oxyCODONE (Roxicodone) tablet 5-10 mg Given 04/30/2020 7:45 AM EST 5 mg 5-10 mg, Oral, EVERY 4 HOURS PRN, Starting on Thu04/29/20 at 2244, Until Thu05/01/20 at 1546, Pain, moderate pain (4-6), Initial dose 5mg. If pain control not adequate in 60 minutes, give additional 5mg, Routine Given 04/29/2020 10:54 PM EST 5 mg pantoprazole (Protonix) injection 40 mg Given 04/28/2020 8:46 AM EST 40 mg 40 mg, Intravenous, DAILY, First dose on Thu04/25/20 at 0900, Until Discontinued, Reconstitute with 10 mL of normal saline to a concentration of 4 mg/mL and infuse slowly over 2 minutes. , Routine Given 04/26/2020 8:58 AM EST 40 mg Given 04/25/2020 10:34 AM EST 40 mg pantoprazole EC (Protonix) tablet 40 mg Given 05/01/2020 8:28 AM EST 40 mg 40 mg, Oral, DAILY, First dose on Thu04/25/20 at 0900, Until Discontinued, DO NOT CRUSH OR OPEN If unable to take PO, may give IV, Routine Given 04/30/2020 9:01 AM EST 40 mg Given 04/29/2020 9:03 AM EST 40 mg potassium chloride 10 mEq in New Bag 04/26/2020 4:41 PM EST 10 mEq 100 mL/hr sterile water 100 mL infusion 10 mEq, Intravenous, EVERY 2 HOURS, 2 doses, First dose on Thu04/26/20 at 1415, Last dose on Thu04/26/20 at 1615, Administer over 60 Minutes, Warning Vesicant/Irritant Medication New Bag 04/26/2020 2:19 PM EST 10 mEq 100 mL/hr potassium phosphate (monobasic) (K-Phos) Given 05/01/2020 8:29 A M EST 500 mg tablet 500 mg 500 mg, Oral, 4 TIMES DAILY WITH MEALS & NIGHTLY, First dose on Thu04/29/20 at 0800, Until Discontinued, Dissolve tablets in 6-8 oz of water; for best results, soak tablets in water for 2-5 minutes, then stir and give to patient., Routine Given 04/30/2020 8:09 PM EST 500 mg Given 04/30/2020 5:11 PM EST 500 mg sodium phosphate 15 mMol in New Bag 04/29/2020 9:53 AM EST 15 mmol 37.5 mL/hr sodium chloride 0.9% 150 mL infusion 15 mmol, Intravenous, EVERY 4 HOURS, 2 doses, First dose on Thu04/29/20 at 0445, Last dose on 04/29/20 at 0845, Administer over 4 Hours, Administer over 4-6 hours New Bag 04/29/2020 5:28 AM EST 15 mmol 37.5 mL/hr documented in this encounter Active and Recently Administered Medications Times are shown in EST. Scheduled Medication Order 04/29/2020 04/30/2020 05/01/2020 acetaminophen (Tylenol) tablet 1,000 mg (CANCELED) 001 3 (Given - Provider: Sindy Orourke RN)0523 (Given - Provider: Sindy Orourke RN) 1,000 mg, Oral, EVERY 6 HOURS SCHEDULED, First dose on 04/28/20 at 0000, Until Discontinued acetaminophen (Tylenol) tablet 650 mg 1240 (Given - Pr ovider: Grace Turner RN)1828 (Given - Provider: Grace Turner RN) 0014 (Given - Provider: Sindy Orourke RN)0655 (Given - Provider: Sindy Orourke RN)1247 (Given - Provider: Grace Turner RN)2008 (Given - Provider: Bertha Sousa RN) 0100 (Not Given - Provider: Bertha Sousa RN - Reason: Patient/family refused)0630 (Not Given - Provider: Bertha Sousa RN - Reason: Patient/family refused)1230 (Not Given - Provider: Grace Awan RN - Reason: Patient/family refused) 650 mg, Oral, EVERY 6 HOURS, First dose (after last modification) on 04/29/20 at 1230, Until Discontinued, Maximum dose of acetaminophen is 4000 mg from all sources in 24 hours. When ordered for pain, acetaminophen should be given even when other ordered pain medications are indicated. , Routine amLODIPine (Norvasc) tablet 5 mg 09 (Given - Provider: Julienne Turner RN) 900 (Given - Provider: Grace Turner RN) 08 (Given - Provider: Grace Awan RN ) 5 mg, Oral, DAILY, First dose on Thu at 0900, Until Discontinued, Routine aspirin EC tablet 81 mg 09 (Given - Provider: Grace Turner RN) 09 (Given - Provider: Grace Turner RN) 0828 (Given - Provider: Grace Awan RN ) 81 mg, Oral, DAILY, First dose on Thu at 0900, Until Discontinued, Routine atorvastatin (Lipitor) tablet 20 mg 182 (Given - Provider: Grace Turner RN) 171 (Given - Provider: Grace Turner RN) 20 mg, Oral, EVERY EVENING, First dose o n Thu04/25/20 at 1700, Until Discontinued, Routine bisacodyL (Dulcolax) suppository 10 mg 0 903 (Given - Provider: Grace Turner RN) 899 (Not Given - Provider: Grace Awan RN - Reason: Patient/family refused) 10 mg, Rectal, DAILY, First dose on Thu04/30/20 at 0900, Until Discontinued, Routine carvediloL (Coreg) tablet 12.5 mg 908 (Given - Provid er: Grace Turner RN)1827 (Given - Provider: Grace Turnre RN) 900 (Given - Provider: Grace Turner RN)1710 (Given - Provider: Grace Turner RN) 08 (Given - Provider: Grace Awan RN) 12.5 mg, Oral, 2 TIMES DAILY WITH MEALS, First dose on Thu04/25/20 at 0800, Until Discontinued, Routine furosemide (Lasix) tablet 20 mg 100 (Given - Provider : Grace Turner RN)2047 (Given - Provider: Sindy Orourke, LAWRENCE) 900 (Given - Provider: Grace Turner, LAWRENCE)2008 (Given - Provider: Bertha Sousa RN) 828 (Given - Provider: Grace Awan RN) 20 mg, Oral, 2 TIMES DAILY, First dose o n [place] 04/29/20 at 1030, Until Discontinued, Routine gabapentin (Neurontin) capsule 100 mg 2047 (Given - Pr ovider: Sindy Orourke, LAWRENCE) 2008 (Given - Provider: Bertha Sousa, LAWRENCE) 100 mg, Oral, NIGHTLY, First dose on Thu04/25/20 at 2100, Until Discontinued, Routine heparin (porcine) (5,000 units/1 mL) subcutaneous inje ction 5,000 Units 902 (Given - Provider: Grace Turner RN)2047 (Given - Provider: Sindy Orourke RN) 09 (Given - Provider: Grace Turner RN )2008 (Given - Provider: Bertha Sousa RN) 0900 (Not Given - Provider: Grace Awan RN - Reason: Patient/family refused) 5,000 Units, Subcutaneous, EVERY 12 HOUR S SCHEDULED, First dose on Thu04/25/20 at 0112, Until Discontinued, Routine hydrALAZINE (Apresoline) tablet 25 mg 1001 (Given - Pr ovider: Grace Turner RN)1414 (Given - Provider: Grace Turner RN)2048 (Given - Provider: Sindy Orourke RN) 09 (Given - Provider: Grace Turner RN )1546 (Given - Provider: Grace Turner RN)2008 (Given - Provider: Bertha Sousa RN) 0835 (Given - Provider: Grace Awan RN) 25 mg, Oral, 3 TIMES DAILY, First dose o n 04/29/20 at 1030, Until Discontinued, Take with Food, Routine levothyroxine (Synthroid) tablet 75 mcg 09 (Given - Provider: Grace Turner RN) 0741 (Given - Provider: Grace Turner RN) 0646 (Given - Provider: Bertha Sousa RN) 75 mcg, Oral, DAILY, First dose on Thu at 0900, Until Discontinued, Routine lidocaine (Lidoderm) 5 % topical patch 3 patch(Linked Group 1) 2255 (Patch Applied - Provider: Sindy Orourke RN - Comment: 1 patch per pt request) 2327 (Patch Applied - Provider: Bertha Sousa RN - Comment: 1 patch per pt request) 3 patch, Transdermal, EVERY 24 HOURS, Fi rst dose on 04/29/20 at 2330, Until Discontinued, Apply patch(es) for 12 hours, and then remove for 12 hours., Routine lidocaine (Lidoderm) topical patch REMOVAL(Linked Group 1) 1045 (Patch Removed - Provider: Grace uTrner RN) 1045 (Patch Removed - Provider: Grace boudreaux RN) Transdermal, EVERY 24 HOURS, First dose on Thu04/30/20 at 1045, Until Discontinued, Remove lidocaine 5% patch pantoprazole (Protonix) injection 40 mg(Linked Group 2 ) 0903 (See Alternative - Provider: Grace Turner RN) 09 (See Alternative - Provider: Grace Turner RN) 0828 (See Alternative - Provider: Grace Awan RN) 40 mg, Intravenous, DAILY, First dose on Thu04/25/20 at 0900, Until Discontinued, Reconstitute with 10 mL of normal saline to a concentration of 4 mg/mL and infuse slowly over 2 minutes. , Routine pantoprazole EC (Protonix) tablet 40 mg(Linked Group 2 ) 09 (Given - Provider: Grace Turner RN) 09 (Given - Provider: Grace Turner RN) 08 (Given - Provider: Grace Awan RN) 40 mg, Oral, DAILY, First dose on Thu at 0900, Until Discontinued, DO NOT CRUSH OR OPEN If unable to take PO, may give IV, Routine potassium phosphate (monobasic) (K-Phos) tablet 500 mg 0903 (Given - Provider: Grace Turner RN)1240 (Given - Provider: Grace Turner RN)1828 (Given - Provider: Grace Turner RN)2048 (Given - Provider: Sindy Orourke RN) 0742 (Given - Provider: Grace Turner RN)1247 (Given - Provider: Grace Turner RN)1711 (Given - Provider: Grace Turner RN)2009 (Given - Provider: Bertha Sousa RN) 0829 (Given - Provider: Grace Awan, LAWRENCE )1200 (Not Given - Provider: Grace Awan RN - Reason: Patient/family refused) 500 mg, Oral, 4 TIMES DAILY WITH MEALS & NIGHTLY, First dose on Thu04/29/20 at 0800, Until Discontinued, Dissolve tablets in 6-8 oz of water; for best results, soak tablets in water for 2-5 minutes, then stir and give to patient., Routine sodium phosphate 15 mMol in sodium chloride 0.9% 150 m L infusion (COMPLETED) 0528 (New Bag - Provider: Sindy Orourke RN)0952 (Stopped - Provider: Grace Turner RN)0953 (New Bag - Provider: Grace uTrner RN)1500 (Stopped - Provider: Grace Turner RN) 15 mmol, Intravenous, EVERY 4 HOURS, 2 d oses, First dose on 04/29/20 at 0445, Last dose on Thu04/29/20 at 0845, Administer over 4 Hours, Administer over 4-6 hours Continuous Medication Order 04/29/2020 04/30/2020 05/01/2020 dextrose 5% and sodium chloride 0.45% wi potassium chloride 20 mEq infusion (CANCELED) 0953 (Rate/Dose Change - Provider: Grace Turner RN)1849 (New Bag - Provider: Grace Turner, RN) 0904 (Stopped - Provider: Grace Turner RN) 50 mL/hr, at 50 mL/hr, Intravenous, CONT INUOUS, Starting Thu04/27/20 at 1215, Until Thu04/30/20 at 0800, Warning Vesicant/Irritant Medication PRN Medication Order 04/29/2020 04/30/2020 05/01/2020 HYDROmorphone (Dilaudid) 0.5 mg/0.5 mL injection 0.2 m g () 1014 (Given - Provider: Grace Turner RN)1414 (Given - Provider: Grace Turner RN) 0.2 mg, Intravenous, EVERY 4 HOURS PRN, Starting Thu04/29/20 at 0945, Until Thu04/29/20 at 2144, Pain, Routine HYDROmorphone (Dilaudid) 0.5 mg/0.5 mL injection 0.4 m g (CANCELED) 0524 (Given - Provider: Sindy Orourke RN) 0.4 mg, Intravenous, EVERY 3 HOURS PRN, Starting Cinthia 04/26/20 at 0428, Until 04/29/20 at 0941, Pain, Routine labetaloL (Normodyne) (5 mg/mL) injection solution 20 mg (CANCELED) 0014 (Given - Provider: Sindy Orourke, LAWRENCE) 20 mg, Intravenous, EVERY 2 HOURS PRN, S tarting Cinthia 04/26/20 at 0521, Until Thu04/30/20 at 1125, High Blood Pressure, SBP > 160, Routine melatonin tablet 3 mg 3 mg, Oral, NIGHTLY PRN, Starting Thu at 0111, Until Thu05/01/20 at 1546, For sleep, Routine oxyCODONE (Roxicodone) tablet 10-15 mg(Linked Group 3) 2253 (See Alternative - Provider: Sindy Orourke RN) 744 (See Alternative - Provider: Grace Turner, RN)2208 (Given - Provider: Bertha Sousa, LAWRENCE) 10-15 mg, Oral, EVERY 4 HOURS PRN, Start ing Thu04/29/20 at 2244, Until Thu05/01/20 at 1546, Pain, severe pain (7-10), Initial dose 10mg. If pain control not adequate in 60 minutes, give additional 5mg, Routine oxyCODONE (Roxicodone) tablet 5-10 mg(Linked Group 3) 2253 (Given - Provider: Sindy Orourke RN) 744 (Given - Provider: Grace Turner, LAWRENCE )2208 (See Alternative - Provider: Bertha Sousa, LAWRENCE) 5-10 mg, Oral, EVERY 4 HOURS PRN, Starti ng Thu04/29/20 at 2244, Until Thu05/01/20 at 1546, Pain, moderate pain (4-6), Initial dose 5mg. If pain control not adequate in 60 minutes, give additional 5mg, Routine Linked Groups Order Group 1: lidocaine (Lidoderm) 5 % topical patch 3 patchJump to med 3 patch, Transdermal, EVERY 24 HOURS, Fi rst dose on Thu04/29/20 at 2330, Until Discontinued
Apply patch(es) for 12 hours, and then remove for 12 hours.
Routine And lidocaine (Lidoderm) topical patch REMOVALJump to med Transdermal, EVERY 24 HOURS, First dose on Thu04/30/20 at 1045, Until Discontinued
Remove lidocaine 5% patch
Group 2: pantoprazole EC (Protonix) tablet 40 mgJump to med 40 mg, Oral, DAILY, First dose on Thu at 0900, Until Discontinued
DO NOT CRUSH OR OPEN If unable to take PO, may give IV
Routine Or pantoprazole (Protonix) injection 40 mgJump to med 40 mg, Intravenous, DAILY, First dose on Thu04/25/20 at 0900, Until Discontinued
Reconstitute with 10 mL of normal saline to a concentration of 4 mg/mL and infuse slowly over 2 minutes.
Routine Group 3: oxyCODONE (Roxicodone) tablet 5-10 mgJump to med 5-10 mg, Oral, EVERY 4 HOURS PRN, Starti [facility] 04/29/20 at 2244, Until Thu05/01/20 at 1546, Pain, moderate pain (4-6)
Initial dose 5mg. If pain control not adequate in 60 minutes, give additional 5mg
Routine Or oxyCODONE (Roxicodone) tablet 10-15 mgJump to med 10-15 mg, Oral, EVERY 4 HOURS PRN, Start ing [place] 04/29/20 at 2244, Until Thu05/01/20 at 1546, Pain, severe pain (7-10)
Initial dose 10mg. If pain control not adequate in 60 minutes, give additional 5mg
Routine documented in this encounter Care Teams Med Care Manager Relationship Specialty Start Date End Date Sanjuanita Lee MD PCP - General 03/05/13 12/23/[address] [place] [address] documented as of this encounter
--- OUTSIDE RECORDS SUMMARY | 2022-02-22 23:29 | XMS_ITS | Encounter Summary ---
:1950 Author Organization [facility] [place] [address] Care Team Providers Name Role Phone Sanjuanita Lee MD Primary Care Provider Encounter Details Date Type Department Care Team Description 05/01/2020 Orders Only General Surgery at [facility] Judy Casper [place] [address] [address] [place] [address] [place] [id number] [phone] (Wo rk) Social History Tobacco Use Types [...] documented as of this encounter Progress Notes Judy Casper MD - 05/01/2020 1:51 PM EST Narcotic RX being written due to inability of pharmacy to accept resident prescriptions that were attempted already. PDMP checked and 0 prescriptions noted. documented in this encounter Plan of Treatment Scheduled Procedures Name Priority Associated Diagnoses Date/Time EGD, UPPER GI ENDOSCOPY Gastroesophageal reflux disease, esophagitis presence not specifi ed documented as of this encounter Visit Diagnoses Not on filedocumented in this encounter Care Teams Curator [employer] Relationship Specialty Start Date End Date Sanjuanita Lee MD PCP - General 03/05/13 12/23/[address] [place] [address] documented as of this encounter
--- OUTSIDE RECORDS SUMMARY | 2022-02-22 23:29 | XMS_ITS | Encounter Summary ---
:1950 Author Organization [facility] [address] Care Team Providers Name Role Phone Sanjuanita Lee MD Primary Care Provider Reason for Visit Reason Onset Date Comments Medication Refill 04/30/2020 Encounter Details Date Type Department Care Team Description 04/30/2020 Refill Cardiology at [facility] Lavelle Feliz MD Medication Refill [place] [place] [address] CARDIOLOGY DEPT. [phone] [place], [place] [address] (Wo rk) Social History Tobacco [...] on filedocumented in this encounter Care Teams Home Performance Consultant Relationship Specialty Start Date End Date Sanjuanita Lee MD PCP - General 03/05/13 12/23/[address] [place] [address] documented as of this encounter
--- OUTSIDE RECORDS SUMMARY | 2022-02-22 23:29 | XMS_ITS | Encounter Summary ---
:1950 Author Organization [facility] [place] [address] Care Team Providers Name Role Phone Sanjuanita Lee MD Primary Care Provider Reason for Referral Consultation (Routine) - Closed Specialty Diagnoses / Procedures Referred By Contact Refer red To Contact Dermatology Diagnoses Basal cell carcinoma (BCC), unspecified site Rolo Galloway MD Leboeuf, Matthew R, MD [facility] [place], [place] [id number] [place] [phone] Fax: Referral ID Status Reason Start Date Expiration Date Visits V isits Requested Authorized [id number] Closed Consult, 05/17/2020 05/17/2021 1 1 Test & Treat Encounter Details Date Type Department Care Team Description 05/17/2020 Orders Only Dermatology at [facility] carlo cell carcinoma Chet Carlin MD (BCC), unspecified [address] [place] [address] [facility] [place], [place] [address] Social History Tobacco Use Types [...] reflux disease, esophagitis presence not specifi ed Scheduled Referrals Name Type Priority Associated Diagnoses Order S chedule Referral to Outpatient Referral Routine Basal cell carcinoma Ordered: Dermatology (BCC), unspecified 1 site documented as of this encounter Visit Diagnoses Diagnosis Basal cell carcinoma (BCC), unspecified site documented in this encounter Care Teams Winding Inspector And Tester Relationship Specialty Start Date End Date Sanjuanita Lee MD PCP - General 03/05/13 12/23/[address] [place] [address] documented as of this encounter
--- OUTSIDE RECORDS SUMMARY | 2022-02-22 23:29 | XMS_ITS | Encounter Summary ---
:1950 Author Organization [facility] [place] [address] Care Team Providers Name Role Phone Sanjuanita Lee MD Primary Care Provider Reason for Visit Reason Onset Date Comments Pre Procedure Call 06/28/2020 Encounter Details Date Type Department Care Team Description 06/28/2020 Telephone Dermatology at [facility] Shaylee Preston, Pre Procedure Call Road RN [address] [place] [address] Social History Tobacco Use Types Packs/Day [...] Telephone Encounter - Shaylee Preston RN - 06/28/2020 8:24 AM EST [facility] ([facility]) Patient Name: Charlene Harmon Age: 69 y.o. Date of : 1950 Today's Date: 06/28/2020 REFERRING PROVIDER: Rolo Sterling MD CC: Mohs [...] None, Patient will have Covid test in [place], [place] prior to procedure. Tobacco use (amount [...] on filedocumented in this encounter Care Teams Lyric Writer Relationship Specialty Start Date End Date Sanjuanita Lee MD PCP - General 03/05/13 12/23/21 [address] [place] [address] documented as of this encounter
--- OUTSIDE RECORDS SUMMARY | 2022-02-22 23:29 | XMS_ITS | Encounter Summary ---
:1950 Author Organization [facility] [place] [address] Care Team Providers Name Role Phone Sanjuanita Lee MD Primary Care Provider Encounter Details Date Type Department Care Team Description 11/08/2020 Clinical Support Dermatology at [facility] Basal cell carcinoma Chet Rutherford MD of right side of [address] [facility] [id number] [facility] [phone] [place] [address] Social History Tobacco Use Types Packs/Day Years [...] documented as of this encounter Progress Notes Darshan Perales MD - 11/08/2020 2:00 PM EDT Images from the original note were not included. Dermatologic Surgery Post-Operative Wound Check Patient: Charlene Harmon Today's Date: 11/08/2020 Date of : 1950 Chief complaint: [] Wound check History of Present Illness: Charlene Harmon is a 69 y.o. female presents today for status post Mohs micrographic surgery for Basal Cell Carcinoma, with surgery date 07/05/2020 repaired by Full thickness and Cartilage Graft ??, located on the Right Nasal Ala Today, the patient reports contentment with the scar. Patient denies post- operative course complications and had an uneventful post-op course. Examination: Focused examination performed of the surgical site. This reveals healed composite graft. Slight hyperpigmentation of FTSG. Assessment: 1. Normal healing post-surgical site without any signs/symptoms of infection. No issues with breathing through right nostril. Slight hyperpigmentation of FTSG in setting of sun exposure. Plan: 1.RTC prn Darshan Perales MD PhD Mohs Micrographic Surgery and Dermatologic Oncology Department of Dermatology documented in this encounter Plan of Treatment Scheduled Procedures Name Priority Associated Diagnoses Date/Time EGD, UPPER GI ENDOSCOPY Gastroesophageal reflux disease, esophagitis presence not specifi ed documented as of this encounter Visit Diagnoses Diagnosis Basal cell carcinoma of right side of no se Basal cell carcinoma of skin of other an d unspecified parts of face documented in this encounter Care Teams Tie Carrier Relationship Specialty Start Date End Date Sanjuanita Lee MD PCP - General 03/05/13 12/23/[address] [place] [address] documented as of this encounter
--- OUTSIDE RECORDS SUMMARY | 2022-02-22 23:29 | XMS_ITS | Encounter Summary ---
:1950 Author Organization [facility] [address] Care Team Providers Name Role Phone Sanjuanita Lee MD Primary Care Provider Reason for Visit Reason Onset Date Comments Appointment 05/28/2020 Encounter Details Date Type Department Care Team Description 05/28/2020 Telephone Dermatology at [facility] Giuliana Magdaleno CCMA Appointment [address] [place] [address] Social History Tobacco Use Types Packs/Day [...] this encounter Miscellaneous Notes Telephone Encounter - Giuliana Magdaleno CCMA - 05/28/2020 8:33 AM EST Spoke Charlene Walld to let her know that we have received her referral to Dr. Bang, phone number [phone]) given to call to schedule. documented in this encounter Plan of Treatment Scheduled Procedures Name Priority Associated Diagnoses Date/Time EGD, UPPER GI ENDOSCOPY Gastroesophageal reflux disease, esophagitis presence not specifi ed documented as of this encounter Visit Diagnoses Not on filedocumented in this encounter Care Teams Parking Lot Signaler Relationship Specialty Start Date End Date Sanjuanita Lee MD PCP - General 03/05/13 12/23/[address] [place] [address] documented as of this encounter
--- OUTSIDE RECORDS SUMMARY | 2022-02-22 23:29 | XMS_ITS | Encounter Summary ---
:1950 Author Organization [facility] [place] [address] Care Team Providers Name Role Phone Sanjuanita Lee MD Primary Care Provider Reason for Visit Reason Comments Skin Lesion Consultation (Routine) - Closed Specialty Diagnoses / Procedures Referred By Contact Refer red To Contact Dermatology Diagnoses Disorder of the skin and subcutaneous tissue, unspecified Sanjuanita Lee MD [facility] Dermatology [address] [place] [address] [address] [place] [id number] Referral ID Status Reason Start Date Expiration Date Visits V isits Requested Authorized [id number] Closed Consult, Test 04/20/2020 04/20/2021 [facility] PCP Updated and/or Approved Encounter Details Date Type Department Care Team Description 05/14/2020 Office Visit Dermatology at [facility]halif Carlin MD behavior [address] [place] [address] [facility] [place], [place] [address] Social History Tobacco Use Types [...] documented as of this encounter Progress Notes Rolo Sterling MD - 05/14/2020 1:20 PM EST Images from the original note were not included. DERMATOLOGY - NEW PATIENT NOTE Date of service: 05/14/2020 Charlene Harmon : 1950, 69 y.o. Chief Complaint: Chief Complaint Patient presents with ??? Skin Lesion HPI: Charlene Harmon is a 69 y.o. female referred by Sanjuanita Lee with the following concerns: New patient here today for a focused exam. Patient notes of a lesion on the nose that has been present for 6-7 months. The lesion occasionally stovall. She has tried applying peroxide, alcohol, and Vaseline with minimal improvement. The lesion has decreased in size. Relevant Skin History: - Okay to leave detailed message with results? yes - Skin cancer (including type): none Medical History: - CKD stage 5, due to hypertensive nephrosclerosis Family History: Melanoma: none Relevant Social History: - - Retired - 2 children Meds: Current Outpatient Medications Medication Sig Dispense Refill ??? oxyCODONE (Roxicodone) 5 mg Tablet Take 1 tablet by mouth every 6 hours as needed for Pain. 10 tablet 0 ??? carvediloL (Coreg) 12.5 mg [...] Take 81 mg by mouth daily. ??? senna-docusate (Pericolace) 8.6-50 mg Tablet Take 1 tablet by mouth daily. (Patient not taking: Reported on 05/14/2020) 60 tablet 0 No current facility-administered medications for this visit. Allergies: No Known Allergies Review of Systems: - General: Feels well - Skin: No other skin concerns. Examination: - Constitutional: Patient was alert, well-appearing and in no noticeable distress. - Focused Exam: Skin examination of the face and hands was normal with the exception of the findingslisted below - A nurse/MA was present and on standby during my examination. Diagnosis/Skin findings/Assessment/Plan: #. Neoplasm of Uncertain Behavior - On the right nasal ala there is a 4 mm ulcerated pink papule. DDx: BCC vs. Other - After review of risks and benefits, joint decision made to pursue shave biopsy today. Procedure Note: Procedure: Shave biopsy Location: right nasal ala The patient's consent was obtained. Risk of infection, scarring, nerve damage, pigment change, numbness, incomplete removal, recurrence, bleeding, pain and uncommonly so, allergic reaction to anesthesia were all reviewed. Alcohol preparation was used. Anesthesia obtained with 1% lidocaine with epinephrine. A shave biopsy was obtained and the specimen was sent to pathology for histologic evaluation. Hemostasis obtained. (AlCl and/or electrocautery). Vaseline and bandaid were applied. Wound care was reviewed.There were no complications; the pt. tolerated the procedure well. RTC: Pending pathology, briefly discussed Mohs procedure with patient. The following photos were obtained with patient consent: Note initiated by Lexus Ayoub CMA. I, Lexus Ayoub CMA, have performed the documentation for this encounter in the presence of and acting as a scribe for Rolo Sterling MD. I performed the services which were documented by the scribe, and I agree with the accuracy of the documentation in this encounter. Rolo Sterling MD Reviewed and signed by Rolo Sterling MD Resident in Dermatology [facility] Patient seen in conjunction with staff customer resolution specialist: Cynthia White MD Department of Dermatology [facility] Cynthia White MD - 05/14/2020 1:20 PM EST I directly supervised the Dermatology resident during this office visit. The resident presented the history and physical exam to me. I then saw and examined this patient with the resident. We reviewed the history and pertinent details and I confirmed the physical findings. I agree with the details of the history and physical exam as documented in the resident's note. CYNTHIA WHITE MD Staff Physician Rolo Sterling MD - 05/14/2020 1:20 PM EST Called patient, discussed results of biopsy, recommended Mohs to treat this lesion. Patient is in agreement with this plan. Referral placed. DIAGNOSIS Right nasal ala, skin shave biopsy: - ??Basal cell carcinoma, nodular type, transected documented in this encounter Plan of Treatment Scheduled Procedures Name Priority Associated Diagnoses Date/Time EGD, UPPER GI ENDOSCOPY Gastroesophageal reflux disease, esophagitis presence not specifi ed documented as of this encounter Procedures Procedure Name Priority Date/Time Associated Diagnosis Comme nts SURGICAL PATHOLOGY Routine 05/14/2020 1:33 PM Res ults for this REPORT EST procedure are i n the results section. SPECIMEN TO Routine 05/14/2020 1:33 PM Neoplasm of Results f or this PATHOLOGY EST uncertain behavior procedure are in the results section. documented in this encounter Results Surgical Pathology Report (05/14/2020 1:33 PM EST) Component Value Ref Test Analysis Performed At [facility] Method Time Signature Surgical [id number] ? Location: [facility] Report The signing pathologist has (i) examined the relevant preparation(s) for the [facility]IAL specimen(s) and (ii) rendered or confirmed the diagnosis(es) . [facility] . ?Surgic al Pathology DIAGNOSIS Right nasal ala, skin shave biopsy: - ??Basal cell carcinoma, nodular type, transected Electronically signed by: ??Obdulia RODRIGES, Jack Rodriguez Verified: ??05/17/2020 ?Dermatopathologist, Bone & Soft Tissue Pathologist Performed at: ??-[facility] Dept. of Pathology, [place], [place] SPECIMEN(S) SUBMITTED A - right nasal ala, skin shave biopsy (1) CLINICAL INFORMATION BCC versus other: 4 mm ulcerated pink papule SPECIMEN PROCESSING A - Labeled/Fixative: Patient demographics, formalin. Quantity/Size: ??Single, 0.7 x 0.1-0.3 cm. Tissue Description: Lucio-white scaly skin shave. Sections/Processing: Inked, trisected and entirely submitted in 1 cassette labele d A1. ??MLL Specimen (Source) Anatomical Collection Method Collection Time Re ceived Time Location / / Volume Laterality 05/14/2020 1:33 PM EST Rolo Galloway MD PATHOLOGY/CYTOLOGY ORDERABLE S Performing Organization Address City/State/[place] [address] Specimen to Pathology (05/14/2020 1:33 PM EST) Specimen Anatomical Collection Method Collection Time Receive d Time (Source) Location / / Volume Laterality AP Specimen 05/14/2020 1:33 PM 7:06 EST PM EST Narrative [facility] - 05/14/2020 7:06 PM EST Specimen requisition ordered. ??Separate Pathology report to follow Resulting Agency Comment Spec In Lab Cynthia White MD PATHOLOGY/CYTOLOGY ORDERABLE S Performing Organization Address City/[facility]/[place] [address] documented in this encounter Visit Diagnoses Diagnosis Neoplasm of uncertain behavior Neoplasm of uncertain behavior, site uns pecified documented in this encounter Care Teams Wellness Educator Relationship Specialty Start Date End Date Sanjuanita Lee MD PCP - General 03/05/13 12/23/[address] [place] [address] documented as of this encounter
--- OUTSIDE RECORDS SUMMARY | 2022-02-22 23:29 | XMS_ITS | Encounter Summary ---
:1950 [place] [address] Care Team Providers Name Role Phone Sanjuanita Lee MD Primary Care Provider Reason for Visit Auth/Cert Specialty Diagnoses / Procedures Referred By Contact Refer red To Contact Diagnoses SBO (small bowel obstruction) SBO Procedures EMERGENCY IPI Referral ID Status Reason Start Date Expiration Date Visits Requ ested Visits Authorized [id number] 1 1 Encounter Details Date Type Department Care Team Description 04/27/2020 Anesthesia Event Main Operating Room Neeraj Cohn MD [facility] [place] [address] [place] [address] [phone] Anesthesia Record Procedure Summary Procedure Name Responsible Anesthesia Start Anesthesia Stop Time Anesthesiologist Time @EXPLORATORY Neeraj Lenz MD 04/27/20 0030 04/27/20 0 158 LAPAROTOMY, WITH/WITHOUT BIOPSY(S) (WRVU 12.54) (N/A Abdomen) Events Date Time Event Comment 04/26/2020 2339 04/27/2020 0030 AN Verify 0030 Start 0030 An Start Data 0035 An Induction 0039 An Intubation 0049 Anesthesia Ready 0141 Extubation/LMA Out 0158 an stop data 0158 Recovery or ICU Handoff Patient care was transferred to the destination unit staff after review of the patient's medica l history, current anesthetic/surgi lucio status and plan, according to the Provider Handoff Checklist. 0158 Stop Name Total fentaNYL 100 mcg IV Lidocaine 100 mg Propofol 150 mg Rocuronium 20 mg Dexamethasone 4 mg Propofol INF 104.37 mg metroNIDAZOLE 500 mg ceFAZolin 2 g Succinylcholine 100 mg Esmolol 40 mg ondansetron (pf) (Zofran) (2 mg/mL) injection 4-8 mg 4 mg Sugammadex 200 mg lactated ringers infusion 1,200 mL Agents Name O2 Air N2O Sevoflurane (et) Blood No blood administrations on file. Lines, Drains, and Airways Type Details Placement Removal Incision 09/01/18; 1535; groin; 09/01/18 1535 by 10/01/21 1039 by other (see comments); Whitney Ornelas RN Chapman, Emma M RN percutaneous puncture; LDA not present upon assessment; 10/01/21; 1039 Incision 09/07/18; 1551; abdomen; 09/07/18 1551 by 1039 by low transverse; LDA not Annmarie Patrick RN C Aria jeronimo RN present upon assessment; 10/01/21; 1039 NG/OG Tube 04/25/20; nasogastric; 04/25/20 0000 by 04/28/20 1234 by 73; left nostril; Viki Mcpherson, RN Karen, Babar zelayay A, stomach; treatment of RN obstruction; with ease; 04/28/20; 1234 PIV 04/26/20; 1741; cephalic 04/26/20 1741 by 1403 by vein (lateral side of Nano Banuelos Madig an, Lynn B, RN arm), left; TOWER SWITCH OPERATOR [id number] catheter system; 22 gauge, 1 in length; rmt, jack frame tender-vas; distraction, tolerated well, appears comfortable; removed per policy/procedure, lumen/catheter not patent, site care per policy/procedure, catheter/device intact; 04/29/20; 1403 Urethral Catheter 04/27/20; 0036; Abdominal 04/27/20 0036 by 05/17 1225 by surgery; indwelling Brent Livingston, Ashley Herrera, single lumen catheter; COMMUNICATIONS PROFESSOR 04/27/20; 1225 ETT Mask Ventilation: Easy 04/27/20 0044 by 04/27/20 0141 by (1); ETT Type: Cuffed, Jami Arguello MD Erick om, Amanda Carlin MD Oral; ETT Size: 7 mm; Mac Blade: 3; Notes: Asleep, Pre-O2, Stylette; Attempts: 1; Laryngoscopy Grade: 1; ETT Placement Verified By: Auscultation, Capnometry, Visual; Secured at Teeth: 21 cm; Inserted by: candido Incision 04/27/20; 0049; abdomen; 04/27/20 0049 by 1039 by LDA not present upon Brent Livingston RN Chap manAria RNfiberglass roller; 10/01/21; 1039 PIV 04/27/20; 0057; median 04/27/20 0057 by 04/29/20 0934 by vein (underside of arm), Jami Arguello MD Ad Ashley love, right; [id number] COMMUNICATIONS PROFESSOR catheter system; 18 gauge; 04/29/20; 0934 documented in this encounter Social History Tobacco [...] encounter OR Notes Anesthesia Postprocedure Evaluation - Neeraj Lenz MD - 04/27/2020 7:16 AM EST Department of Anesthesiology Post-procedure Note Patient: Charlene Harmon Procedure Summary Date: 04/27/20 Room / Location: [facility] OR [address] [place] [address] MAIN OR Anesthesia Start: 003 Anesthesia Stop: 015 Procedure: @EXPLORATORY LAPAROTOMY, WITH/WITHOUT BIOPSY(S) [facility] (N/A Abdomen) Diagnosis: (small bowel obstruction) Surgeon: Edwin Hwang MD Responsible Provider: Neeraj Lenz MD Anesthesia Type: general ASA Status: 3 All Anesthesia Providers: Anesthesiologist: Neeraj Lenz MD Belt Loop Maker: Amanda Colmenares MD Vitals Value Taken Time BP 162/63 04/27/20 0400 Temp 36.8 ??C (98.2 ??F) 04/27/20 0400 Pulse 65 04/27/20 0305 Resp 14 04/27/20 0400 SpO2 97 % 04/27/20 0400 Pain Level 2 04/27/20 0259 Vitals shown include unvalidated device data. Patient Location: PACU/[facility] Level of Consciousness: Awake and Alert Pain Management: Satisfactory Analgesia PONV: None Cardiovascular Status: At Baseline and Hemodynamically Stable Respiratory Status: At Baseline and Room Air Postoperative Fluid Status: Intravascular EUvolemia Possible Anesthetic Complications: NONE apparent at time of evaluation Final Primary Anesthesia Type: General (The anesthetic type performed was the same as planned.) Comments: Neeraj Lenz MD Anesthesia Preprocedure Evaluation - Neeraj Lenz MD - 04/26/2020 11:35 PM EST Pre-Anesthesia Evaluation for: Charlene Harmon a 69 y.o. female. Procedure(s): @EXPLORATORY LAPAROTOMY, WITH/WITHOUT BIOPSY(S) ([facility]) Patient Active Problem List Diagnosis ??? SBO (small bowel obstruction) ??? Pulmonary hypertension ??? Pre-transplant evaluation for CKD (chronic kidney disease) ??? Uncontrolled hypertension ??? Anemia of chronic renal failure, stage 4 (severe) ??? Chest pain ??? Hypertensive urgency ??? Systolic HF (heart failure) ??? CKD (chronic kidney disease) stage 5, GFR less than 15 ml/min ??? Severe protein-calorie malnutrition Weight loss of 15.8% x 26 days from 47.4 kg (08/29) to 39.9 kg (10/04) and presents with lean muscle loss at clavicles and subcutaneous fat loss at triceps consistent with severe protein calorie malnutrition. ??? Hypertensive urgency ??? Renal artery stenosis ??? Abdominal aortic aneurysm (AAA) without rupture ??? Viral hepatitis B acute Past Medical History: Diagnosis Date ??? AAA (abdominal aortic aneurysm) [id number] angiogram; 3.2 cm infrarenal ??? Constipation ??? [...] (WRVU 6.99) performedby Regan Chen MD at [facility] MAIN OR ??? PRO UPPER GI ENDOSCOPY, DIAGNOSTIC 01/20/2014 EGD, UPPER GI ENDOSCOPY performed by Corby Cano MD at [facility] ENDOSCOPY ??? PRO UPPER GI ENDOSCOPY, DIAGNOSTIC N/A 07/28/2017 EGD, UPPER GI ENDOSCOPY performed by Snow Liao MD at [facility] ENDOSCOPY ??? PRO VEIN BYPASS GRAFT, AORTOILIOFEMORAL N/A 09/07/2018 @BYPASS GRAFT, AORTOILIAC W\ VEIN CONDUIT (WRVU 41.88) performed by Isac Moody MD at [facility] MAIN OR Social History Tobacco Use ??? Smoking status: Former Smoker Packs/day: 0.50 Years: 45.00 Pack years: 22.50 Types: Cigarettes Quit date: 2007 Years since quittin.0 ??? Smokeless tobacco: Never Used ??? Tobacco comment: smoked for ~45 years up to 1 ppd at [facility], quit ~1999 Substance Use Topics ??? Alcohol use: Yes Comment: a few glasses of wine, rarely 4 times a year Social History Substance and Sexual Activity Drug Use No No Known Allergies Medications: MAR and/or home medications have been reviewed. Physical Exam: Patient Vitals for the past 24 hrs: Temp Heart Rate From SP02 Resp BP SpO2 O2 Device 04/26/20 0011 36.8 ??C (98.2 ??F) -- -- -- -- -- 04/26/20 0014 36.8 ??C (98.2 ??F) 62 bpm 16 186/88 94 % RA 04/26/20 0200 -- -- -- 184/85 -- -- 04/26/20 0215 -- -- -- 178/81 -- -- 04/26/20 0246 -- -- -- 179/81 -- RA 04/26/20 0412 36.7 ??C (98.1 ??F) -- 16 194/90 96 % RA 04/26/20 0448 -- -- -- 180/85 -- -- 04/26/20 0607 -- -- -- 184/75 -- -- 04/26/20 0735 36.7 ??C (98.1 ??F) 78 bpm 17 185/77 93 % -- 04/26/20 0852 -- -- -- 169/72 -- -- 04/26/20 1007 -- 84 bpm -- 159/77 93 % -- 04/26/20 1343 36.6 ??C (97.9 ??F) 76 bpm 20 189/90 (!) 88 % RA 04/26/20 1711 -- 69 bpm -- 171/86 95 % -- 04/26/20 1804 -- 59 bpm -- 177/78 95 % -- 04/26/20 1925 37 ??C (98.6 ??F) 78 bpm 18 158/73 94 % RA Body mass index is 18.36 kg/m??. Height: 152.4 cm (5') Weight: 42.6 kg (94 lb) Airway Assessment: Mallampati: II TM distance: >3 FB Neck ROM: full Cardiovascular Assessment: Rhythm: regular Rate: normal Pulmonary Assessment: unlabored breathing Dental Assessment: - normal exam Misc Assessment: Anesthesia Plan: ASA 3 general, with a(n) intravenous induction 69 yo female with SBO for ex-lap, possible bowel resection. PMH significant for CKD, HTN (2/2 YING now s/p ileorenal bypass), infrarenal AAA, HLD, former smoker, combined systolic and diastolic HF (lastEF 59% in 05/2019, no recent exacerbations), hepatitis B. Denies issues with prior anesthetics. Plan GETA Region - Other Informed Consent: Anesthetic plan and risks discussed with patient. Plan discussed with attending and resident. PAT Clinic Note documented in this encounter Plan of Treatment [...] Site ceFAZolin (Ancef) 1 g in dextrose Given 04/27/2020 12:55 AM EST 2 g 5% 50 mL infusion PRN, Starting on Thu04/27/20 at 0055, Until Thu04/27/20 at 0158, Administer over 30 Minutes, Anesthesia Intra-op dexamethasone (Decadron) injection Given 04/27/2020 1:08 AM EST 4 mg PRN, Starting on Thu04/27/20 at 0108, Until Thu04/27/20 at 0158, Anesthesia Intra-op, Routine esmoloL (Brevibloc) (10 mg/mL) injection Given 04/27/2020 1:07 AM EST 10 mg PRN, Starting on Thu04/27/20 at 0035, Until Thu04/27/20 at 0158, Anesthesia Intra-op, Routine Given 04/27/2020 12:35 AM EST 30 mg fentaNYL (pf) (50 mcg/mL) multi-dose Given 04/27/2020 12:[address] 100 mcg injection PRN, Starting on Thu04/27/20 at 0035, Until Thu04/27/20 at 0158, Anesthesia Intra-op, Routine lactated ringers infusion New Bag 04/27/2020 2:29 AM EST 75 mL/hr 75 mL/hr 75 mL/hr, Intravenous, CONTINUOUS, Starting on Thu04/24/20 at 2216, Until Thu04/27/20 at 1127 New Bag 04/27/2020 12:30 AM EST New Bag 04/26/2020 7:26 PM EST 75 mL/hr 75 mL/hr lidocaine (pf) (Xylocaine) (20 mg/mL) 2% Given 04/27/2020 12:35 AM EST 100 mg injection syringe PRN, Starting on Thu04/27/20 at 0035, Until Thu04/27/20 at 0158, Anesthesia Intra-op, Routine metroNIDAZOLE (Flagyl) 500 mg in sodium Given 04/27/2020 12:55 A M EST 500 mg chloride 0.9% 100 mL infusion PRN, Starting on Thu04/27/20 at 0055, Until Thu04/27/20 at 0158, Administer over 30 Minutes, Anesthesia Intra-op ondansetron (pf) (Zofran) (2 mg/mL) injection Given [...] Given 04/25/2020 3:53 AM EST 4 mg propofoL (Diprivan) 10 mg/mL bolus injection Given 04/2020 12:35 AM EST 150 mg (Anesthesia) PRN, Starting on Thu04/27/20 at 0035, Until Thu04/27/20 at 0158, Anesthesia Intra-op propofoL (Diprivan) Rate/Dose 04/27/2020 1:02 70 mcg/kg/min 17.9 mL/ hr infusion Change AM EST CONTINUOUS PRN, Starting on Thu04/27/20 at 0048, Until Thu04/27/20 at 0158, Anesthesia Intra-op, Routine New Bag 04/27/2020 12:48 AM EST 50 mcg/kg/min 12.8 mL/hr rocuronium (Zemuron) (10 mg/mL) multi-dose Given 04/27/2020 12:4 8 AM EST 20 mg injection PRN, Starting on Thu04/27/20 at 0048, Until Thu04/27/20 at 0158, Anesthesia Intra-op, Routine succinylcholine (Anectine;Quelicin) (20 Given 04/27/2020 12:35 A M EST 100 mg mg/mL) injection PRN, Starting on Thu04/27/20 at 0035, Until Thu04/27/20 at 0158, Anesthesia Intra-op, Routine sugammadex (Bridion) 100 mg/mL injection Given 04/27/2020 1:29 AM EST 200 mg PRN, Starting on Thu04/27/20 at 0129, Until Thu04/27/20 at 0158, Anesthesia Intra-op, Routine documented in this encounter Care Teams Paper Pattern Inspector Relationship Specialty Start Date End Date Sanjuanita Lee MD PCP - General 03/05/13 12/23/[address] [place] [address] documented as of this encounter
--- OUTSIDE RECORDS SUMMARY | 2022-02-22 23:29 | XMS_ITS | Encounter Summary ---
:1950 Author Organization [facility] [place] [address] Care Team Providers Name Role Phone Sanjuanita Lee MD Primary Care Provider Reason for Visit Reason Comments Follow-up Encounter Details Date Type Department Care Team Description 05/14/2020 Office [facility]; [facility] [place] [facility] Leukocytosis, unspecified type [facility] [address] [place], [place] [facility] [address] [place] [address] [phone] Social History Tobacco Use Types Packs/Day Years [...] Sign Reading Time Taken Comments Blood Pressure 117/55 05/14/2020 10:07 AM EST Pulse 71 05/14/2020 10:07 AM EST Temperature 36.3 ??C (97.4 ??F) 05/14/2020 10:07 AM EST Respiratory Rate 16 05/14/2020 10:07 AM EST Oxygen Saturation 97% 05/14/2020 10:07 AM EST Inhaled Oxygen Concentration - - Weight 40.5 kg (89 lb 4.8 oz) 05/14/2020 10:07 AM EST Height 152.4 cm (5') 05/14/2020 10:07 AM EST Body Mass Index 17.44 05/14/2020 10:07 AM EST documented in this encounter Progress Notes Yuki Escamilla, REGULATORY SUBMISSIONS ASSOCIATE - 05/14/2020 10:30 AM EST Charlene Harmon presents For surgical follow up. 04/26/20-04/27/2020:exploratory laparotomy [place] Findings: 1. Exploratory laparotomy with reactive ascites on abdominal entry. Right colon adherent to the right of midline from prior trans-abdominal renal bypass procedure otherwise relatively free of adhesions 2. High grade obstruction from adhesive band off the jejunum just beyond the Ligament of treitz which was wrapped around the terminal ileum ~20cm proximal to ileocecal valve. Ileum hemorrhagic but viable Feels well, diarrhea has resolved, she is having regular soft formed bowel movements. Carol are tender however denies any abdominal pain, nausea or vomiting.No fevers or chills, she is eating, she isvoiding without difficulty, her energy and appetite are good. She is pleased with her progress. EXAM: Well appearing moves easily about the exam room and onto the exam table Abd soft non tender non distended. [place] are intact, the incision is nicely healed. There is no erythema or fluctuance. Staplesremoved on exam, steri strips applied. Labs: 05/14/20: WBC:10.4 Hgb:11.6 Hct:34.5 Plat:297 05/07/20: [facility] WBC:14.14 Hgb:12.0 Hct:35.6 Plat:396 Impression/plan: Carol out, wound healed no evidence of infection I have advised the pt to apply sunscreen to the scar for any sun exposure. Otherwise, Charlene may FU with us on an as needed basis we are happy to see her back should anything specific arise or should there be any question or concern. Above discussed with Dr Hwang documented in this encounter Plan of Treatment Scheduled Procedures Name Priority Associated Diagnoses Date/Time EGD, UPPER GI ENDOSCOPY Gastroesophageal reflux disease, esophagitis presence not specifi ed documented as of this encounter Procedures Procedure Name Priority Date/Time Associated Diagnosis Comme nts HEMOGRAM STAT 05/14/2020 11:09 Leukocytosis, Results fo r this AM EST unspecified type procedure a re in the results section. DIFFERENTIAL, STAT 05/14/2020 11:09 Leukocytosis, Results f or this AUTOMATED AM EST unspecified type procedure a re in the results section. HC VENIPUNCTURE STAT 05/14/2020 11:09 Leukocytosis, AM EST unspecified type documented in this encounter Results (ABNORMAL) Differential, Automated (05/14/2020 11:09 AM EST) [facility] Method Time Signature Neutrophils % 66.8 % [facility] Neutr Abs (ANC) 6.93 (H) 1.70 - [facility] 6.10 [facility] x10(3)/[facility] LABORATORY Lymphocytes % 15.0 % [facility] Lymphocytes Abs 1.6 0.9 - 3.2 [facility] x10(3)/[facility] LABORATORY Monocytes % 12.1 % [facility] Monocyte Abs 1.3 (H) 0.3 - 0.9 [facility] x10(3)/[facility] LABORATORY Eosinophils % 4.6 % [facility] Eosinophils Abs 0.5 (H) 0.0 - 0.4 [facility] x10(3)/[facility] LABORATORY Basophils % 0.9 % [facility] Basophils Abs 0.1 0.0 - 0.1 [facility] x10(3)/[facility] LABORATORY Immature Gran % 0.60 % [facility] Comment: Immature granulocytes(IG's)percentage an d absolute count will include metamyelocytes, myelocytes, and promyelo cytes. Blood smears from CBCs yielding IG's will be scanned manually for kevyn bowen. If this scan disagrees with the automated IG or if promyelocytes are not ed, a manual differential will be performed. Blanca Gran Abs 0.06 (H) 0.00 - 0.04 x10(3)/[facility] LABORATORY Specimen Anatomical Collection Method Collection Time Receive d Time (Source) Location / / Volume Laterality Blood specimen 05/14/2020 11:09 1 (specimen) AM EST 11:17 AM EST Resulting Agency Comment Spec In Lab Yuki Escamilla REGULATORY SUBMISSIONS ASSOCIATE HEMATOLOGY ORDERABLES Performing Organization Address City/State/ZIP Code Phon e Number [place] [phone] (ABNORMAL) Hemogram (05/14/2020 11:09 AM EST) Analysis Performed At Patho logist Time Signature WBC 10.4 (H) 4.0 - 9.5 [facility] x10(3)/[facility] LABORATORY RBC 3.86 (L) 4.00 - [facility] 5.21 [facility] x10(6)/[facility] LABORATORY Hemoglobin 11.6 (L) 11.7 - [facility] 15.5 gm/dL [facility] Hematocrit 34.5 (L) 35.7 - [facility] 45.8 % [facility] MCV 89.4 82.6 - [facility] 94.4 [facility] LABORATORY MCH 30.1 27.1 - [facility] 32.0 pg [facility] MCHC 33.6 31.7 - [facility] 35.0 gm/dL [facility] Platelets 297 145 - 357 [facility] x10(3)/[facility] LABORATORY RDWSD 48.3 (H) 37.0 - [facility] 46.0 [facility] LABORATORY RDWCV 15.0 (H) 11.5 - [facility] 14.1 % [facility] MPV 9.9 7.6 - 12.9 [facility] LABORATORY nRBC % Auto 0.0 % [facility] nRBC Abs Auto 0.000 0.000 - [facility] 0.000 [facility] x10(3)/[facility] LABORATORY Specimen Anatomical Collection Method Collection Time Receive d Time (Source) Location / / Volume Laterality Blood specimen 05/14/2020 11:09 1 (specimen) AM EST 11:17 AM EST Resulting Agency Comment Spec In Lab Yuki Escamilla REGULATORY SUBMISSIONS ASSOCIATE HEMATOLOGY ORDERABLES Performing Organization Address City/State/[place] [address] documented in this encounter Visit Diagnoses Diagnosis Surgery follow-up Follow-up examination, following unspeci fied surgery Leukocytosis, unspecified type documented in this encounter Care Teams Horses Or Mules Teamster Relationship Specialty Start Date End Date Sanjuanita Lee MD PCP - General 03/05/13 12/23/[address] [place] [address] documented as of this encounter
--- OUTSIDE RECORDS SUMMARY | 2022-02-22 23:29 | XMS_ITS | Encounter Summary ---
:1950 Author Organization [facility] [place] [address] Care Team Providers Name Role Phone Sanjuanita Lee MD Primary Care Provider Encounter Details Date Type Department Care Team Description 07/10/[address] [facility] Shaylee Preston RN [address] [place] [address] Social History Tobacco Use Types Packs/Day Years [...] Telephone Encounter - Shaylee Preston RN - 07/10/2020 2:29 PM EDT Patient called with questions about wound care status post Mohs surgery for basal cell carcinoma of the right nasal ala repaired by FTSG and cartilage graft on 07/05/20. Advised okay to keep nasal cone out at this point and okay to wash hair. Answered all questions. Suture removal scheduled 07/12/20. Shaylee Preston, RN documented in this encounter Plan of Treatment Scheduled Procedures Name Priority Associated Diagnoses Date/Time EGD, UPPER GI ENDOSCOPY Gastroesophageal reflux disease, esophagitis presence not specifi ed documented as of this encounter Visit Diagnoses Not on filedocumented in this encounter Care Teams [place] Coiling Machine Setter Relationship Specialty Start Date End Date Sanjuanita Lee MD PCP - General 03/05/13 12/23/[address] [place] [address] documented as of this encounter
--- OUTSIDE RECORDS SUMMARY | 2022-02-22 23:30 | XMS_ITS | Encounter Summary ---
:1950 [place] [address] Care Team Providers Name Role Phone Sanjuanita Lee MD Primary Care Provider Reason for Visit Reason Comments Hospital Transfer Abdominal Pain Auth/Cert Specialty Diagnoses / Procedures Referred By Contact Refer red To Contact Diagnoses SBO (small bowel obstruction) SBO Procedures EMERGENCY IPI Referral ID Status Reason Start Date Expiration Date Visits Requ ested Visits Authorized [id number] 1 1 Encounter Details Date Type Department Care Team Description 04/26/2020 - Surgery Main Operating Room Edwin Ayala, @EXP LORATORY 04/27/2020 Mariama Mcdonald MD LAPAROTOMY, [facility] WITH/WITHOUT BIOPSY(S) [facility] (WRVU 12.54) [facility] GENERAL SURGERY [place] [id number] [phone] Social History Tobacco Use Types Packs/Day Years [...] Sign Reading Time Taken Comments Blood Pressure 191/71 04/27/2020 2:15 AM Blood draw oc curring EST at time Pulse 76 04/27/2020 2:15 AM EST Temperature 36.9 ??C (98.4 ??F) 04/27/2020 1:50 AM EST Respiratory Rate 12 04/27/2020 2:15 AM EST Oxygen Saturation 95% 04/27/2020 2:15 AM EST Inhaled Oxygen - - Concentration Weight 42.6 kg (94 lb) 04/24/2020 7:45 [...] during the morning. She then presented to [facility] for evaluation. A CT abdomen/pelvis was performed and concerning for asmall bowel obstruction. She was transferred to [facility] for further care. ?? On arrival she [...] 37.8 PLATELET 223 226 200 Recent Labs 05/01/2039904/30/2035004/29/20 013 NA 134* 135 136 K 3.9 3.9 [...] below. Electronically signed by: Yasir Brito MD, [facility] ([phone]), at 04/27/2020 3:08 AM Xr Abdomen 1 View (generic) Result [...] below. Electronically signed by: Yasir Brito MD, [facility] ([phone]), at 04/26/2020 8:30 PM Xr Abdomen 1 [...] below. Electronically signed by: Tamy Santos MD, [facility] ([phone]), at 04/26/2020 9:45 AM Xr Abdomen 1 [...] below. Electronically signed by: Yasir Brito MD, [facility] ([phone]), at 04/26/2020 3:29 AM Xr Abdomen 1 [...] VIEW (GENERIC) CLINICAL HISTORY: Contrast administered at MT, assess contrast progression TECHNIQUE: AP portable supine [...] below. Elec tronically signed by: [facility] ([phone]), at 04/25/2020 8:08 AM Request For 2nd Read Ct Chest Abdomen Pelvis Result Date: 04/24/2020 EXAMINATION: REQUEST FOR 2ND READ CT CHEST ABDOMEN PELVIS CLINICAL HISTORY: ?SBO; What Modality is the exam? CT Scan; Body Part (please add comments as necessary): SHARI/ABD/PEL; Sending [facility]; Date of exam [id number]; I believe a [...] this report, please contact the number below. Film Library- Storage Only Ct Chest Abdomen Pelvis Result Date: 04/24/2020 This exam is auto-finalizing. It's purpose is for storage only. Outpatient Services/Studies: No discharge procedures on file. PLAN: Follow up in clinic with TRUCK ENGINE TECHNICIAN in 2-4 weeks Disposition: Home Condition at [...] Center 05/14/2020 1:20 PM Rolo Sterling MD [facility] Narcotics/Pain Medications: You may be given a [...] 1. You will have follow-up appointments at [facility] as indicated in the ???Future Appointments and [...] on the next business day. Please call [phone] if you do not hear from us by that time, as your timely follow-up is very important to us. Your care was managed by the Trauma and Acute Care Surgery Team at [facility]. If you have any questions or concerns, please feel free to contact us. Provider Contact Information: General Surgery: [facility] (after business hours): Primary Care Physician: Sanjuanita Lee MD General Instructions Adhesions: What to [...] litter or dog food bags, a vacuum core cleaner, or a child. ? Ask your [...] your doctor if you can take an eozo-yzx-lhxusdq medicine. ? If you think your pain [...] more? Visit our health information library at [email or web address] You can also view health information on [employer], your personal patient account. Log in or sign up today. Enter N163 in the search box to learn more about Adhesions: What to Expect at Home. Current as of: August 10, 2019?Content Version: 12.7 ?? [id number] [employer]. Care instructions adapted under license by [facility]. If you have questions about a medical condition or this instruction, always ask your healthcare professional. [employer] disclaims any warranty or liability for your use of this information. Future Appointments and Orders Future Appointments and Orders Future Appointments Provider Department Dept Phone 05/14/2020 10:30 AM Yuki Escamilla APRN General Surgery at [facility] Arrive at: Body Stylist Area [phone] 05/14/2020 1:20 PM Rool Sterling MD Dermatology at [facility] Arrive at: Body Stylist [address] [place] [address] Signed: Indu Hinojosa MD General Surgery [facility] pager [phone] Primary Torrie Physician: Sanjuanita Lee MD [address] [facility] / [place] [address] Attending Addendum I have seen and examined [...] litter or dog food bags, a vacuum core cleaner, or a child. ? Ask your [...] your doctor if you can take an jswz-tun-iczszpl medicine. ? If you think your pain [...] Where can you learn more? Visit our [employer] information library at [email or web address] You can also view health information on [employer], your personal patient account. Log in or sign up today. Enter N163 in the search box to learn more about Adhesions: What to Expect at Home. Current as of: August 10, 2019?Content Version: 12.7 ?? [id number] [employer]. Care instructions adapted under license by [facility]. If you have questions about a medical condition or this instruction, always ask your healthcare professional. [employer] disclaims any warranty or liability for your [...] Center 05/14/2020 1:20 PM Rolo Sterling MD [facility] Narcotics/Pain Medications: You may be given a [...] 1. You will have follow-up appointments at [facility] as indicated in the ???Future Appointments and [...] on the next business day. Please call [phone] if you do not hear from us by that time, as your timely follow-up is very important to us. Your care was managed by the Trauma and Acute Care Surgery Team at [facility]. If you have any questions or concerns, please feel free to contact us. Provider Contact Information: General Surgery: [facility] (after business hours): Primary Care Physician: Sanjuanita [...] Take 1 tablet by 60 tablet 0 05/01/2020 02/0 11/2021 (Pericolace) 8.6-50 mg mouth daily. Tablet melatonin 5 mg Tablet Take by mouth. 0 06/04/2021 documented as of this encounter Progress Notes Grace Awan RN - 05/01/2020 1:45 PM EST Charlene was here for a SBO, p/o day #5 ex lap with lysis of adhesion. Midline incision C/D/I, MIRNA. Rates pain in abdomen 06/06, denies any need for pain medications. Able to tolerate PO intake, but endorses having a decreased appetite. Patient discharged today via private car home, will be picking up. AVS reviewed with patient before discharge, all questions/ concerns addressed. All lines/ drains/ devices removed from patient. Patient is aware of all f/u appointments. Discharged via [facility] around 1315. Dneise Menard RN - 05/01/2020 10:20 AM EST OFFICE OF CARE MANAGEMENT Gunner'S Mate M Discharge Note Denise Menard RN reviewed record and discussed patient with Care Team. Patient plan of care discussed in multidisciplinary rounds and assessment for continuing care and discharge needs. Diagnosis: Small Bowel Obstruction LOS Hospital: 7 days INSURANCE: Payor: MEDICARE / Plan: MEDICARE PART A & B / Product Type: *No Product type* / SECONDARY INSURANCE: [employer] [facility] [place] DECISION MAKER: Attempt Cardiopulmonary Resuscitation - [...] feel that they are not medically ready. Gunner'S Mate M to follow with team and family to assist with discharge needs when patient ready for discharge. Denise Menard RN, BSN Case Management pgr [phone] Indu Jiang MD - 05/01/2020 10:16 AM EST ID/MECHANISM OF INJURY: Charlene Harmon is a 69 y.o. female S/p OR CASE INFORMATION: 04/26/2020 - 04/27/2020 Procedure(s): @EXPLORATORY LAPAROTOMY, WITH/WITHOUT BIOPSY(S) [facility] FOLLOW-UP NEEDED: Does pt need to f-u with surgeon or TRUCK ENGINE TECHNICIAN (please indicate reason if attending provider): Follow up in clinic with TRUCK ENGINE TECHNICIAN in 2-4 weeks What follow-up with TACS team is needed and how soon? Follow up in clinic with TRUCK ENGINE TECHNICIAN in 2-4 weeks Follow-up with other services? [...] PM EST Office of Care Management (OCM /[place] (CM)Discharge planning ) Service: ACS Pager #[phone] e- reviewed. Report received from IDDRs Patient plan of care discussed with Team and Nursing to assessment for continuing care and dischargeneeds. [facility]: 6 DECISION MAKER: Attempt Cardiopulmonary Resuscitation - [...] to facilitate discharge planning. Fanta Taylor RN CM Pager # [phone] Judy Casper MD - 04/30/2020 9:34 AM EST Acute [...] 94 % SpO2: [94 %-95 %] 04/29 0701 - 04/30 0700 In: 1912 [P.O.:1011; I.V.:740] [...] PLATELET 226 200 242 Recent Labs 04/30/20 0351 04/29/20 0139 04/28/20 0445 NA 135 136 143 [...] Hinojosa MD Acute Care Surgery Team pager [phone] Attending Addendum I have seen and examined [...] Alert and follows commands. Labs: Recent Labs 04/29/20 0139 04/28/20 0445 04/27/20 0220 WBC 12.4* 13.3* 7.8 HGB 12.2 12.7 14.0 HCT 37.8 39.2 44.1 PLATELET 200 242 294 Recent Labs 04/29/20 0139 04/28/20 0445 04/27/20 0220 NA 136 143 145 K 4.1 3.9 [...] Causey MD Acute Care Surgery Team pager [phone] Alfredo Causey MD - 04/28/2020 9:37 AM [...] 90 % SpO2: [89 %-93 %] 04/27 07 - 04/28 0700 In: 2272 [I.V.:1942] Out: 1125 [Urine:725] Physical [...] Alert and follows commands. Labs: Recent Labs 04/28/2044404/27/2021904/26/20 0426 WBC 13.3* 7.8 7.5 HGB 12.7 14.0 14.6 HCT 39.2 44.1 44.8 PLATELET 242 294 300 Recent Labs 04/28/205 04/27/2021904/26/20 0426 NA 143 145 142 K 3.9 3.7 [...] Causey MD Acute Care Surgery Team pager [phone] Pee Monreal MD - 04/27/2020 11:14 AM [...] 89 % SpO2: [88 %-100 %] 04/26 07 - 04/27 0700 In: 2907 [I.V.:2817] Out: [...] Alert and follows commands. Labs: Recent Labs 04/27/2021904/26/2042504/25/20 0730 04/24/201999 WBC 7.8 [...] Causey MD Acute Care Surgery Team pager [phone] SURGICAL ATTENDING NOTE: Pt seen and examined [...] return of bowel function. Otherwise noted above. McleodIlana MD - 04/27/2020 4:54 AM EST Post-op [...] no surrounding erythema or ecchymoses Recent Labs 04/27/2021904/26/2042504/25/2030 04/24/201999 WBC 7.8 7.5 11.5* 8.3 HGB 14.0 14.6 14.0 14.4 HCT 44.1 44.8 42.6 43.5 PLATELET 294 300 336 317 PT -- -- -- 12.7* INR -- -- -- 1.1 PTT -- -- -- 29 Recent Labs 04/27/2021904/26/2042504/25/2072904/24/201999 NA 145 142 142 143 K 3.7 [...] criteria from the PACU, report given to RN Jami on Edwin Hinkle MD - 04/27/2020 12:06 [...] Diagnosis Date ??? AAA (abdominal aortic aneurysm) [id number] angiogram; 3.2 cm infrarenal ??? Constipation ??? [...] [93 %-96 %] 04/25 701 - 04/26 07 In: 2120 [I.V.:2060] Out: 1550 [Urine:900] Physical Exam: GEN: Resting comfortably in bed, pleasant, conversant, NAD. HEENT: Normocephalic, atraumatic, anicteric sclerae CHEST: No increased work of breathing CV: Regular rate. Well perfused. ABD: Soft, distended, tympanitic. TTP, no rebound tenderness. EXTR: Moving spontaneously. No edema SKIN: Warm and dry. NEURO: Alert and follows commands. Labs: Recent Labs 04/26/2042504/25/20 0704/24/201999 WBC 7.5 11.5* 8.3 HGB 14.6 14.0 14.4 HCT 44.8 42.6 43.5 PLATELET 300 336 317 PT -- -- 12.7* INR -- -- 1.1 PTT -- -- 29 Recent Labs 04/26/2042504/25/20 0730 04/24/201999 NA 142 142 143 K 3.4* 3.8 3.9 CL 103 102 106 CO2 26 25 25 BUN 36* 38* 30* CREATININE 1.76* 2.19* 2.19* GLUCOSE 173 154 130 CALCIUM 9.2 9.4 9.0 MAGNESIUM 1.13* 1.03 0.94 PHOS 3.5 4.0 3.8 Microbiology: None New imaging: EXAMINATION: XR ABDOMEN 1 VIEW (GENERIC) ?? CLINICAL HISTORY: Contrast administered at MT, assess contrast progression ? TECHNIQUE: AP portable [...] this report, please contact the number below. SSMENT: Charlene Harmon is a 69 y.o. female [...] MD, PGY1 Acute Care Surgery Team pager [phone] Kamala Osullivan, RD - 04/25/2020 12:30 PM [...] of this encounter: 42.6 kg (94 lb). [place] Body Weight: 53.6kg / 118 lbs for [...] Protein-calorie Malnutrition: Not enough data to assess (Lara et al, JPEN J Parenteral Enteral Nutr. 2012 August; 36(3): 273-83) Nutrition to continue to follow up while inpatient Kamala Osullivan RD Pager #: [phone] Orville Elaine MD - 04/25/2020 11:09 AM EST Acute Care Surgery Daily Progress Note ID: Charlene Harmon is a 69 y.o. female presenting with small bowel obstruction . Procedures: * No surgery found * Secondary Issues: Past Medical History: Diagnosis Date ??? AAA (abdominal aortic aneurysm) [id number] angiogram; 3.2 cm infrarenal ??? Constipation ??? [...] 1.1 PTT -- 29 Recent Labs 04/25/20 0704/24/201999 NA 142 143 K 3.8 3.9 CL 102 106 CO2 25 25 BUN 38* 30* CREATININE 2.19* 2.19* GLUCOSE 154 130 CALCIUM 9.4 9.0 MAGNESIUM 1.03 0.94 PHOS 4.0 3.8 Microbiology: None New imaging: EXAMINATION: XR ABDOMEN 1 VIEW (GENERIC) ?? CLINICAL HISTORY: Contrast administered at MT, assess contrast progression ? TECHNIQUE: AP portable [...] this report, please contact the number below. SSMENT: Charlene Harmon is a 69 y.o. female [...] MD, PGY1 Acute Care Surgery Team pager [phone] Edwin Ayala MD - 04/24/2020 10:39 PM EST Patient Name: Charlene Harmon Patient Age: 69 y.o. Birthdate: 1950 Admit date: 04/24/2020 Attending Physician: Aime Kebede MD General Surgery - Admission Note Patient Name: Charlene Harmon : [id number] MR#: [id number] 04/24/2020 Hospital Day 0 days Problem List: [...] Diagnosis Date ??? AAA (abdominal aortic aneurysm) [id number] angiogram; 3.2 cm infrarenal ??? Constipation ??? [...] (WRVU 6.99) performedby Regan Chen MD at [facility] MAIN OR ??? PRO UPPER GI ENDOSCOPY, DIAGNOSTIC 01/20/2014 EGD, UPPER GI ENDOSCOPY performed by Corby Cano MD at [facility] ENDOSCOPY ??? PRO UPPER GI ENDOSCOPY, DIAGNOSTIC N/A 07/28/2017 EGD, UPPER GI ENDOSCOPY performed by Snow Liao MD at [facility] ENDOSCOPY ??? PRO VEIN BYPASS GRAFT, AORTOILIOFEMORAL N/A 09/07/2018 @BYPASS GRAFT, AORTOILIAC W\ VEIN CONDUIT (WRVU 41.88) performed by Isac Moody MD at [facility] MAIN OR Allergies: No Known Allergies Prior to Admission Medications: (Not in a hospital admission) Family History: Family History Problem Relation Age of Onset ??? Hypertension Mother ??? Cervical Cancer Mother ??? Chronic Obstructive Pulmonary Disease Father ??? Hypertension Sister Current Inpatient Medications: Current Facility-Administered Medications Ordered in [facility] Medication Dose Route Frequency Provider Last Rate Last Dose ??? lactated ringers infusion 75 mL/hr Intravenous Continuous Ren Cuevas MD ??? acetaminophen (Ofirmev) (1000 mg/100 mL) infusion 1,000 mg 1,000 mg Intravenous Q6H WILFRED Ren Cuevas MD ??? HYDROmorphone (Dilaudid) 0.5 mg/0.5 mL injection 0.3 mg 0.3 mg Intravenous Q3H PRN Tamar Cuevas MD Current Outpatient Medications Ordered in [facility] Medication Sig Dispense Refill ??? carvediloL (Coreg) [...] 1 ppd at max, quit ~2000 Substance and Sexual Activity ??? [...] file Gets together: Not on file Attends sikhism service: Not on file Active member of [...] Rodolfo of 50 years. 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 No history of heavy etoh use 2 children healthy ID: 69 y.o. Female presents to [facility] with abd pain History of Present Illness: [...] dipstick Result Value Ref Range POC Sp Monterey 1.015 1.002 - 1.030 POC pH, UA [...] Cuevas MD - 04/24/2020 8:06 PM EST [facility] Department of Surgery Admission History and Physical [...] during the morning. She then presented to [facility] for evaluation. A CT abdomen/pelvis was performed and concerning for asmall bowel obstruction. She was transferred to [facility] for further care. On arrival she appears [...] Diagnosis Date ??? AAA (abdominal aortic aneurysm) [id number] angiogram; 3.2 cm infrarenal ??? Constipation ??? Dyslipidemia ??? Hypertension ??? Insomnia ??? Peripheral vascular disease ??? Renal artery stenosis R; per 2009 angiogram PSH: Past Surgical History: Procedure Laterality Date ??? HYSTERECTOMY ? ? PRO CATHETER 1ST ORDER W/WO ART PUNCT/FLUORO/S&I BILATERAL Bilateral 09/01/[address] (FIRST-ORDER), MAIN RENAL ART & ANY ACC, W/S&I; LOREN (WRVU 6.99) performedby Regan Chen MD at [facility] MAIN OR ??? PRO UPPER GI ENDOSCOPY, DIAGNOSTIC 01/20/2014 EGD, UPPER GI ENDOSCOPY performed by Corby Cano MD at [facility] ENDOSCOPY ??? PRO UPPER GI ENDOSCOPY, DIAGNOSTIC N/A 07/28/2017 EGD, UPPER GI ENDOSCOPY performed by Snow Liao MD at [facility] ENDOSCOPY ??? PRO VEIN BYPASS GRAFT, AORTOILIOFEMORAL N/A 09/07/2018 @BYPASS GRAFT, AORTOILIAC W\ VEIN CONDUIT (WRVU 41.88) performed by Isac Moody MD at [facility] MAIN OR HOME MEDICATIONS: No current facility-administered [...] file Gets together: Not on file Attends sikhism service: Not on file Active member of [...] Rodolfo of 50 years. 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 No history of heavy etoh [...] Dispo: floor status Ren Cuevas MD Pager [phone] 04/24/2020 9:03 PM documented in this encounter ED Notes Ganesh Morales LNA - 04/24/2020 9:08 PM EST Performed blood lactate and results given to Tata Simmons RN and sent to the lab. Aime Kebede MD - 04/24/2020 7:56 PM EST Attending Note HPI: Charlene Harmon is a 69 y.o. who presents to the ED Hx of AAA, CKD/ESRD, htn chol,CHF (EF 20%), copd, pulm htn, renal artery stenosis, viral hepatitis, Diagnosed with distal SBO at [facility], vomiting since yesterday, abd pain. Received gentle [...] Rate From SP02 Pulse Resp BP SpO2 04/24/201944 36.9 ??C (98.4 ??F) 63 bpm 64 [...] at [facility] presenting to [facility] ED as a transfer for furhter management [...] ~45 years up to 1 ppd at [place], quit ~2000 Substance and Sexual Activity ??? [...] file Gets together: Not on file Attends sikhism service: Not on file Active member of [...] Rodolfo of 50 years. 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 No history of heavy etoh [...] Temp src Pulse Resp SpO2 Height Weight 04/24/20 2115 158/74 -- -- -- -- 97 % [...] was evaluated and discussed with Dr. Aime Saavedra - Medications, allergies and past medical history reviewed - Nursing notes and vital signs reviewed - Medications and fluid administered: Medications - No data to display - I have reviewed the labs, which are unremarkable Recent Results (from the past 24 hour(s)) POCT urine dipstick Result Value Ref Range POC Sp [place] 1.015 1.002 - 1.030 POC pH, UA [...] below. Electronically signed by: Johnson Ruth MD, [facility] ([phone]), at 04/24/2020 9:13 PM - I have [...] IND Surveillance [continuous indirect monitoring]: Masimo, call marcail within reach, room near unit station, hourly [...] x1 with good effect. Midline incision C/D/I HOUSING OFFICER. IVF d/c. Pt resting in between care. [...] reported no nausea. Continuous fluids running per JUN. Rested well between nursing care, will continue [...] administered x2 with good effect.Midline incision C/D/I HOUSING OFFICER. 2nd bag of Kphos administered. D5 in [...] Ongoing (Interventions Implemented as Appropriate) 04/25/20 1609 04/27/207 Plan of Care Review Progress progress toward [...] cc total output since last night. Flushed x4czjte as ordered with no issues. IVF continued [...] exploratory laparoscopy due to increasing abdominal pain, 01/04, unrelieved by IV Dilaudid, despite NGT. Midline [...] Davis MD - 04/27/2020 5:05 AM EST [facility] Operative Note Patient Name: Charlene Harmon : [id number] MR#: [id number] Case Date: 04/26/2020 - 04/27/2020 Surgeon: Surgeon(s) and Role: * Edwin Ayala MD - Primary * Rafita Davis MD - Resident Preoperative diagnosis: small bowel obstruction Postoperative diagnosis: small bowel obstruction Procedure(s) (LRB): @EXPLORATORY LAPAROTOMY, WITH/WITHOUT BIOPSY(S) (VU 12.54) (N/A) Lysis of adhesions Anesthesia: General [...] Operative Note Patient Name: Charlene Harmon : [id number] MR#: [id number] Case Date: 04/26/2020 - 04/27/2020 Surgeon: Surgeon(s) [...] Outcome: Ongoing (Interventions Implemented as Appropriate) 04/26/20 0438 Coping/Psychosocial Plan Of Care Reviewed With patient OUTCOME EVALUATION NOTE: OUTCOME SUMMARY: A/O x4, afebrile. Upper abdominal pain reported 12/04; PRN Dilaudid x2 given with little effect. (MD notified) VSS ex. BP 180's/80's gave PRN [...] nausea; with 200cc emesis output this AM; MD notified; tried to take PO medications this [...] Diagnosis Date ??? AAA (abdominal aortic aneurysm) [id number] angiogram; 3.2 cm infrarenal ??? Constipation ??? Dyslipidemia ??? Hypertension ??? Insomnia ??? Peripheral vascular disease ??? Renal artery stenosis R; per 2009 angiogram ??? SBO (small bowel obstruction) Hospitalizations Within the Past 30 Days: Transferred from [facility], [facility] otherwise no hospitalizations Anticipated Length Of Stay (If known): potential 04/28/2020 Current Decision-Making Capacity: Patient is alert and oriented and able to make decisions. Advance Care Planning: Has advanced directives and , Rodolfo Harmon, is DPOA HC. Daughter, Mary Harmon, is back up. A copy is in [...] Health/Prescription Coverage: Primary Insurance: MEDICARE Secondary Insurance: [employer] [facility] Prescription Coverage: yes Preferred Pharmacy: [facility] [place] Other: n/a Primary Care Provider: Sanjuanita Lee MD [phone] Patient/Caregiver Goals of Treatment: home with no needs once medically ready Potential Needs for Transition of Care: Rehab/SNF: n/a Home Health: n/a DME: n/a Dialysis: n/a Community Resources: none Transportation: Other: n/a Anticipated Barriers to Discharge/Special Considerations: none Assessment: Independent woman transferred from [facility], [facility] with small bowel obstruction. Has insurance through Medicare and [employer] with prescription coverage. Has accessible home and good family support.Has advanced directives. Plan: home with no needs once medically ready. A member of the Care Management team will continue to monitor progress, follow for continuity of care and assist with transition of care planning. KARINA MEDINA RN Pager: [phone] documented in this encounter Plan of Treatment [...] Scan, Peripheral Blood (05/01/2020 4:00 AM EST) [facility] Method Time Signature Plat Estimate Normal [facility] RBC Morphology Abnormal [facility] Ovalocytes 1-5 /HPF [facility] Miguel Cells 6-10 /HPF [facility] Specimen Anatomical Collection Method Collection Time Receive d Time (Source) Location / / Volume Laterality Blood specimen 05/01/2020 4:00 AM 021 4:23 (specimen) EST AM EST Resulting Agency Comment Spec In Lab Orville Elaine MD HEMATOLOGY ORDERABLES Performing Organization Address City/State/ZIP [place] [address] (ABNORMAL) Differential, Automated (05/01/2020 4:00 AM EST) [facility] Method Time Signature Neutrophils % 65.8 % [facility] LABORATORY Neutr Abs (ANC) 8.16 (H) 1.70 - [facility] 6.10 [facility] x10(3)/[facility] LABORATORY Lymphocytes % 13.1 % [facility] LABORATORY Lymphocytes Abs 1.6 0.9 - 3.2 [facility] x10(3)/[facility] LABORATORY Monocytes % 13.8 % [facility] LABORATORY Monocyte Abs 1.7 (H) 0.3 - 0.9 [facility] x10(3)/[facility] LABORATORY Eosinophils % 4.4 % [facility] LABORATORY Eosinophils Abs 0.5 (H) 0.0 - 0.4 [facility] x10(3)/[facility] LABORATORY Basophils % 0.6 % [facility] LABORATORY Basophils Abs 0.1 0.0 - 0.1 [facility] x10(3)/[facility] LABORATORY Immature Gran % 2.30 % [facility] LABORATORY Comment: Immature granulocytes(IG's)percentage an d absolute count will include metamyelocytes, myelocytes, and promyelo cytes. Blood smears from CBCs yielding IG's will be scanned manually for concor dance. If this scan disagrees with the automated IG or if promyelocytes are not ed, a manual differential will be performed. Blanca Gran Abs 0.28 (H) 0.00 - 0.04 x10(3)/[facility] LABORATORY Specimen Anatomical Collection Method Collection Time Receive d Time (Source) Location / / Volume Laterality Blood specimen 05/01/2020 4:00 AM 021 4:23 (specimen) EST AM EST Resulting Agency Comment Spec In Lab Orville Elaine MD HEMATOLOGY ORDERABLES Performing Organization Address City/State/[place] [address] (ABNORMAL) Hemogram (05/01/2020 4:00 AM EST) Analysis Performed At Patho logist Time Signature WBC 12.4 (H) 4.0 - 9.5 [facility](3[facility] LABORATORY RBC 4.16 4.00 - [place] [facility] 5.21 [facility] x10(6)/[facility] LABORATORY Hemoglobin 12.2 11.7 - [facility] gm/dL [facility] LABORATORY Hematocrit 37.6 35.7 - [place] 45.8 % [facility] LABORATORY MCV 90.4 82.6 - [facility] 94.4 [facility] LABORATORY MCH 29.3 27.1 - [place] 32.0 pg [facility] LABORATORY MCHC 32.4 31.7 - [place] 35.0 gm/dL [facility] LABORATORY Platelets 223 145 - 357 [facility] x10(3)/[facility] LABORATORY RDWSD 46.6 (H) 37.0 - [facility] 46.0 [facility] LABORATORY RDWCV 14.1 11.5 - [facility] 14.1 % [facility] LABORATORY MPV 10.9 7.6 - 12.9 [facility] LABORATORY nRBC % Auto 0.0 % [facility] LABORATORY nRBC Abs Auto 0.000 0.000 - [facility] 0.000 [facility] x10(3)/[facility] LABORATORY Specimen Anatomical Collection Method Collection Time Receive d Time (Source) Location / / Volume Laterality Blood specimen 05/01/2020 4:00 AM 021 4:23 (specimen) EST AM EST Resulting Agency Comment Spec In Lab Orville Elaine MD HEMATOLOGY ORDERABLES Performing Organization Address City/State/[place] [address] Phosphorus (05/01/2020 4:00 AM EST) athologist Signature Phosphorus 3.6 2.5 - 4.5 [facility] mg/dL [facility] LABORATORY Specimen Anatomical Collection Method Collection Time Receive d Time (Source) Location / / Volume Laterality Blood specimen 05/01/2020 4:00 AM 021 4:23 (specimen) EST AM EST Resulting Agency Comment Spec In Lab Edwin Ayala MD CHEMISTRY ORDERABLES Performing Organization Address City/State/ZIP Code Phon e Number [address] Magnesium (05/01/2020 4:00 AM EST) athologist Signature Magnesium 0.71 0.69 - 1.07 [facility] mmol/L [facility] LABORATORY Specimen Anatomical Collection Method Collection Time Receive d Time (Source) Location / / Volume Laterality Blood specimen 05/01/2020 4:00 AM 021 4:23 (specimen) EST AM EST Resulting Agency Comment Spec In Lab Edwin Ayala MD CHEMISTRY ORDERABLES Performing Organization Address City/State/ZIP Code Phon e Number [address] (ABNORMAL) Basic Metabolic Panel (non-fasting) (05/01/2020 4:00 AM EST) athologist Signature Glucose Lvl 78 65 - 199 [facility] mg/dL [facility] LABORATORY Comment: Diabetes: >=200 mg/dL plus symp toms BUN 21 (H) 8 - 18 mg/dL [facility] LABORATORY Creatinine 1.49 (H) 0.70 - 1.20 mg/dL [facility] LABORATORY Sodium 134 (L) 135 - 145 mmol/L [facility] LABORATORY Potassium 3.9 3.5 - 5.0 mmol/L [facility] LABORATORY Comment: Please note: ??Patients with WBC >100,00 0 may have falsely elevated Potassium levels. ??For accurate Potassium quantif ication in these patients send serum separator tube (gold top) for subsequent determinations. ??Contact the Clinical Chemistry Laboratory if there are any qu estions. Chloride 101 98 - 107 mmol/L [facility] LABORATORY CO2 22 22 - 31 mmol/L [facility] LABORATORY Anion Gap 11 5 - 15 mmol/L [facility] LABORATORY Calcium 7.7 (L) 8.5 - 10.5 mg/dL [facility] LABORATORY Estimated GFR 35 (L) >=60 mL/min/1.73 m?? [facility] LABORATORY Comment: This patient? s [...] Organization Address City/State/ZIP Code Phon e Number [place] [id number] Drive (ABNORMAL) Differential, Automated (04/30/2020 3:51 AM EST) [facility] gist Method Time Signature Neutrophils % 68.2 % [facility] LABORATORY Neutr Abs (ANC) 8.93 (H) 1.70 - [facility] 6.10 [facility] x10(3)/[facility] L LABORATORY Lymphocytes % 15.5 % [facility] LABORATORY Lymphocytes Abs 2.0 0.9 - 3.2 [facility] x10(3)/[facility] LABORATORY Monocytes % 8.7 % [facility] LABORATORY Monocyte Abs 1.1 (H) 0.3 - 0.9 [facility] x10(3)/[facility] LABORATORY Eosinophils % 5.0 % [facility] LABORATORY Eosinophils Abs 0.7 (H) 0.0 - 0.4 [facility] x10(3)/[facility] LABORATORY Basophils % 0.6 % [facility] LABORATORY Basophils Abs 0.1 0.0 - 0.1 [facility] x10(3)/[facility] LABORATORY Immature Gran % 2.00 % [facility] LABORATORY Comment: Immature granulocytes(IG's)percentage an d absolute count will include metamyelocytes, myelocytes, and promyelo cytes. Blood smears from CBCs yielding IG's will be scanned manually for concor dance. If this scan disagrees with the automated IG or if promyelocytes are not ed, a manual differential will be performed. Blanca Gran Abs 0.26 (H) 0.00 - 0.04 x10(3)/[facility] LABORATORY Specimen Anatomical Collection Method Collection Time Receive d Time (Source) Location / / Volume Laterality Blood specimen 04/30/2020 3:51 AM 021 3:58 (specimen) EST AM EST Resulting Agency Comment Spec In Lab Orville Elaine MD HEMATOLOGY ORDERABLES Performing Organization Address City/State/ZIP Code Phon e Number [place] [phone] Drive (ABNORMAL) Hemogram (04/30/2020 3:51 AM EST) Analysis Performed At Patho logist Time Signature WBC 13.1 (H) 4.0 - 9.5 [facility] x10(3)/[facility] LABORATORY RBC 4.24 4.00 - [facility] 5.21 [facility] x10(6)/[facility] LABORATORY Hemoglobin 12.7 11.7 - [facility] 15.5 gm/dL [facility] LABORATORY Hematocrit 38.2 35.7 - [place] 45.8 % [facility] LABORATORY MCV 90.1 82.6 - [place] 94.4 fL [facility] LABORATORY MCH 30.0 27.1 - [place] 32.0 pg [facility] LABORATORY MCHC 33.2 31.7 - [facility] [place] 35.0 gm/dL [facility] LABORATORY Platelets 226 145 - 357 [facility] [place] x10(3)/[facility] LABORATORY RDWSD 45.8 37.0 - [place] 46.0 [facility] LABORATORY RDWCV 13.9 11.5 - [place] [place] 14.1 % [facility] LABORATORY MPV 10.5 7.6 - 12.9 [facility] LABORATORY nRBC % Auto 0.0 % [facility] LABORATORY nRBC Abs Auto 0.000 0.000 - [place] 0.000 [facility] x10(3)/[facility] LABORATORY Specimen Anatomical Collection Method Collection Time Receive d Time (Source) Location / / Volume Laterality Blood specimen 04/30/2020 3:51 AM 021 3:58 (specimen) EST AM EST Resulting Agency Comment Spec In Lab Orville Elaine MD HEMATOLOGY ORDERABLES Performing Organization Address City/[facility]/[place] [address] Phosphorus (04/30/2020 3:51 AM EST) P athologist Signature Phosphorus 3.3 2.5 - 4.5 [facility] mg/dL [facility] LABORATORY Comment: result rechecked-eloisa Specimen Anatomical Collection Method Collection Time Receive d Time (Source) Location / / Volume Laterality Blood specimen 04/30/2020 3:51 AM 021 3:58 (specimen) EST AM EST Resulting Agency Comment Spec In Lab Edwin Ayala MD CHEMISTRY ORDERABLES Performing Organization Address City/State/ZIP Code Phon e Number [address] (ABNORMAL) Magnesium (04/30/2020 3:51 AM EST) P athologist Signature Magnesium 0.68 (L) 0.69 - 1.07 [facility] mmol/L [facility] LABORATORY Specimen Anatomical Collection Method Collection Time Receive d Time (Source) Location / / Volume Laterality Blood specimen 04/30/2020 3:51 AM 021 3:58 (specimen) EST AM EST Resulting Agency Comment Spec In Lab Edwin Ayala MD CHEMISTRY ORDERABLES Performing Organization Address City/State/[place] [address] (ABNORMAL) Basic Metabolic Panel (non-fasting) (04/30/2020 3:51 AM EST) P athologist Signature Glucose Lvl 89 65 - 199 [facility] mg/dL [facility] LABORATORY Comment: Diabetes: >=200 mg/dL plus symp toms BUN 18 8 - 18 mg/dL [facility] LABORATORY Creatinine 1.38 (H) 0.70 - 1.20 mg/dL [facility] LABORATORY Sodium 135 135 - 145 mmol/L [facility] LABORATORY Potassium 3.9 3.5 - 5.0 mmol/L [facility] LABORATORY Comment: Please note: ??Patients with WBC >100,00 0 may have falsely elevated Potassium levels. ??For accurate Potassium quantif ication in these patients send serum separator tube (gold top) for subsequent determinations. ??Contact the Clinical Chemistry Laboratory if there are any qu estions. Chloride 103 98 - 107 mmol/L [facility] LABORATORY CO2 21 (L) 22 - 31 mmol/L [facility] LABORATORY Anion Gap 11 5 - 15 mmol/L [facility] LABORATORY Calcium 7.3 (L) 8.5 - 10.5 mg/dL [facility] LABORATORY Estimated GFR 38 (L) >=60 mL/min/1.73 m?? [facility] LABORATORY Comment: This patient? s [...] Organization Address City/State/[place] [address] (ABNORMAL) Differential, Automated (04/29/2020 1:39 AM EST) [facility] gist Method Time Signature Neutrophils % 69.8 % [facility] LABORATORY Neutr Abs (ANC) 8.63 (H) 1.70 - [facility] 6.10 [facility] x10(3)/[facility] LABORATORY Lymphocytes % 14.3 % [facility] LABORATORY Lymphocytes Abs 1.8 0.9 - 3.2 [facility] x10(3)/[facility] LABORATORY Monocytes % 11.1 % [facility] LABORATORY Monocyte Abs 1.4 (H) 0.3 - 0.9 [facility] x10(3)/[facility] LABORATORY Eosinophils % 3.0 % [facility] LABORATORY Eosinophils Abs 0.4 0.0 - 0.4 [facility] x10(3)/[facility] LABORATORY Basophils % 0.6 % [facility] LABORATORY Basophils Abs 0.1 0.0 - 0.1 [facility] x10(3)/[facility] LABORATORY Immature Gran % 1.20 % [facility] LABORATORY Comment: Immature granulocytes(IG's)percentage an d absolute count will include metamyelocytes, myelocytes, and promyelo cytes. Blood smears from CBCs yielding IG's will be scanned manually for concor dance. If this scan disagrees with the automated IG or if promyelocytes are not ed, a manual differential will be performed. Blanca Gran Abs 0.15 (H) 0.00 - 0.04 x10(3)/[facility] LABORATORY Specimen Anatomical Collection Method Collection Time Receive d Time (Source) Location / / Volume Laterality Blood specimen 04/29/2020 1:39 AM 021 1:46 (specimen) EST AM EST Resulting Agency Comment Spec In Lab Orville Elaine MD HEMATOLOGY ORDERABLES Performing Organization Address City/State/[place] [address] (ABNORMAL) Hemogram (04/29/2020 1:39 AM EST) Analysis Performed At Patho logist Time Signature WBC 12.4 (H) 4.0 - 9.5 [facility](3[facility] LABORATORY RBC 4.11 4.00 - [place] 5.21 [facility] x10(6)/[facility] LABORATORY Hemoglobin 12.2 11.7 - [facility] 15.[facility] gm/dL [facility] LABORATORY Hematocrit 37.8 35.7 - [facility] 45.8 % [facility] LABORATORY MCV 92.0 82.6 - [facility] 94.4 [facility] LABORATORY MCH 29.7 27.1 - [place] 32.0 pg [facility] LABORATORY MCHC 32.3 31.7 - [place] 35.0 gm/dL [facility] LABORATORY Platelets 200 145 - 357 [facility] x10(3)/[facility] LABORATORY RDWSD 47.9 (H) 37.0 - [facility] 46.0 [facility] LABORATORY RDWCV 14.1 11.5 - [facility] 14.1 % [facility] LABORATORY MPV 10.6 7.6 - 12.9 [facility] LABORATORY nRBC % Auto 0.0 % [facility] LABORATORY nRBC Abs Auto 0.000 0.000 - [facility] 0.000 [facility] x10(3)/[facility] LABORATORY Specimen Anatomical Collection Method Collection Time Receive d Time (Source) Location / / Volume Laterality Blood specimen 04/29/2020 1:39 AM 021 1:46 (specimen) EST AM EST Resulting Agency Comment Spec In Lab Orville Elaine MD HEMATOLOGY ORDERABLES Performing Organization Address City/State/[place] [address] (ABNORMAL) Phosphorus (04/29/2020 1:39 AM EST) athologist Signature Phosphorus 1.7 (L) 2.5 - 4.5 [facility] mg/dL [facility] LABORATORY Specimen Anatomical Collection Method Collection Time Receive d Time (Source) Location / / Volume Laterality Blood specimen 04/29/2020 1:39 AM 021 1:46 (specimen) EST AM EST Resulting Agency Comment Spec In Lab Edwin Ayala MD CHEMISTRY ORDERABLES Performing Organization Address City/[facility]/ZIP Code Phon e Number [address] Magnesium (04/29/2020 1:39 AM EST) athologist Signature Magnesium 0.83 0.69 - 1.07 [facility] mmol/L [facility] LABORATORY Specimen Anatomical Collection Method Collection Time Receive d Time (Source) Location / / Volume Laterality Blood specimen 04/29/2020 1:39 AM 021 1:46 (specimen) EST AM EST Resulting Agency Comment Spec In Lab Edwin Ayala MD CHEMISTRY ORDERABLES Performing Organization Address City/State/ZIP Code Phon e Number [address] (ABNORMAL) Basic Metabolic Panel (non-fasting) (04/29/2020 1:39 AM EST) athologist Signature Glucose Lvl 101 65 - 199 [facility] mg/dL [facility] LABORATORY Comment: Diabetes: >=200 mg/dL plus symp toms BUN 23 (H) 8 - 18 mg/dL [facility] LABORATORY Creatinine 1.41 (H) 0.70 - 1.20 mg/dL [facility] LABORATORY Sodium 136 135 - 145 mmol/L [facility] LABORATORY Potassium 4.1 3.5 - 5.0 mmol/L [facility] LABORATORY Comment: Please note: ??Patients with WBC >100,00 0 may have falsely elevated Potassium levels. ??For accurate Potassium quantif ication in these patients send serum separator tube (gold top) for subsequent determinations. ??Contact the Clinical Chemistry Laboratory if there are any qu estions. Chloride 108 (H) 98 - 107 mmol/L [facility] LABORATORY CO2 21 (L) 22 - 31 mmol/L [facility] LABORATORY Anion Gap 7 5 - 15 mmol/L [facility] LABORATORY Calcium 7.4 (L) 8.5 - 10.5 mg/dL [facility] LABORATORY Estimated GFR 37 (L) >=60 mL/min/1.73 m?? [facility] LABORATORY Comment: This patient? s [...] Organization Address City/State/[place] [address] EKG 12 Lead (04/28/2020 3:14 PM EST) Component Value Ref Range Test Analysis Performed Pathologis t Method Time At Signature Ventricular rate 65 BPM MUSE SYSTEM Atrial Rate 65 BPM MUSE SYSTEM P-R Interval 122 ms MUSE SYSTEM QRS Duration 76 ms MUSE SYSTEM Q-T Interval 430 ms MUSE SYSTEM QTC Calculated 447 ms MUSE SYSTEM (Bezet) Calculated P [place] 65 degrees MUSE SYSTEM Calculated R [place] 39 degrees MUSE SYSTEM Calculated T [place] 60 degrees MUSE SYSTEM INTERPRETATION Sinus rhythm [...] Signature Phosphorus 1.9 (L) 2.5 - 4.5 [facility]/dL [facility] LABORATORY Specimen Anatomical Collection Method Collection Time Receive d Time (Source) Location / / Volume Laterality Blood specimen 04/28/2020 4:45 AM 021 5:17 (specimen) EST AM EST Resulting Agency Comment Spec In Lab Edwin Ayala MD CHEMISTRY ORDERABLES Performing Organization Address City/[facility]/ZIP Code Phon e Number [address] Magnesium (04/28/2020 4:45 AM EST) athologist Signature Magnesium 1.03 0.69 - 1.07 [facility] mmol/L [facility] LABORATORY Specimen Anatomical Collection Method Collection Time Receive d Time (Source) Location / / Volume Laterality Blood specimen 04/28/2020 4:45 AM 021 5:17 (specimen) EST AM EST Resulting Agency Comment Spec In Lab Edwin Ayala MD CHEMISTRY ORDERABLES Performing Organization Address City/[facility]/ZIP [facility] [place] [address] (ABNORMAL) Basic Metabolic Panel (non-fasting) (04/28/2020 4:45 AM EST) athologist Signature Glucose Lvl 120 65 - 199 [facility] mg/dL [facility] LABORATORY Comment: Diabetes: >=200 mg/dL plus symp toms BUN 27 (H) 8 - 18 mg/dL [facility] LABORATORY Creatinine 1.41 (H) 0.70 - 1.20 mg/dL [facility] LABORATORY Sodium 143 135 - 145 mmol/L [facility] LABORATORY Potassium 3.9 3.5 - 5.0 mmol/L [facility] LABORATORY Comment: Please note: ??Patients with WBC >100,00 0 may have falsely elevated Potassium levels. ??For accurate Potassium quantif ication in these patients send serum separator tube (gold top) for subsequent determinations. ??Contact the Clinical Chemistry Laboratory if there are any qu estions. Chloride 109 (H) 98 - 107 mmol/L [facility] LABORATORY CO2 23 22 - 31 mmol/L [facility] LABORATORY Anion Gap 11 5 - 15 mmol/L [facility] LABORATORY Calcium 8.0 (L) 8.5 - 10.5 mg/dL [facility] LABORATORY Estimated GFR 37 (L) >=60 mL/min/1.73 m?? [facility] LABORATORY Comment: This patient? s [...] Organization Address City/State/[place] [address] (ABNORMAL) Hemogram (04/28/2020 4:45 AM EST) Analysis Performed At Patho logist Time Signature WBC 13.3 (H) 4.0 - 9.5 [facility] x10(3)/[facility] LABORATORY RBC 4.26 4.00 - [facility] 5.21 [facility] x10(6)/[facility] LABORATORY Hemoglobin 12.7 11.7 - [place] [place] 15.5 gm/dL [facility] LABORATORY Hematocrit 39.2 35.7 - [facility] [place] 45.8 % [facility] LABORATORY MCV 92.0 82.6 - [facility] 94.4 [facility] LABORATORY MCH 29.8 27.1 - [place] [place] 32.0 pg [facility] LABORATORY MCHC 32.4 31.7 - [facility] 35.0 gm/dL [facility] LABORATORY Platelets 242 145 - 357 [facility] x10(3)/[facility] LABORATORY RDWSD 48.6 (H) 37.0 - [facility] 46.0 [facility] LABORATORY RDWCV 14.3 (H) 11.5 - [facility] 14.1 % [facility] LABORATORY MPV 10.8 7.6 - 12.9 [facility] LABORATORY nRBC % Auto 0.0 % [facility] LABORATORY nRBC Abs Auto 0.000 0.000 - [place] 0.000 [facility] x10(3)/[facility] LABORATORY Specimen Anatomical Collection Method Collection Time Receive d Time (Source) Location / / Volume Laterality Blood specimen 04/28/2020 4:45 AM 021 5:17 (specimen) EST AM EST Resulting Agency Comment Spec In Lab Edwin Ayala MD HEMATOLOGY ORDERABLES Performing Organization Address City/[facility] [place] [address] Phosphorus (04/27/2020 2:20 AM EST) P athologist Signature Phosphorus 3.3 2.5 - 4.5 [facility] mg/dL [facility] LABORATORY Specimen Anatomical Collection Method Collection Time Receive d Time (Source) Location / / Volume Laterality Blood specimen 04/27/2020 2:20 AM 021 2:45 (specimen) EST AM EST Resulting Agency Comment Spec In Lab Edwin Ayala MD CHEMISTRY ORDERABLES Performing Organization Address City/[facility] Phon e Number [address] Magnesium (04/27/2020 2:20 AM EST) P athologist Signature Magnesium 0.95 0.69 - 1.07 [facility] mmol/L [facility] LABORATORY Specimen Anatomical Collection Method Collection Time Receive d Time (Source) Location / / Volume Laterality Blood specimen 04/27/2020 2:20 AM 021 2:45 (specimen) EST AM EST Resulting Agency Comment Spec In Lab Edwin Ayala MD CHEMISTRY ORDERABLES Performing Organization Address City/State/[place] [address] (ABNORMAL) Basic Metabolic Panel (non-fasting) (04/27/2020 2:20 AM EST) athologist Signature Glucose Lvl 135 65 - 199 [facility] mg/dL [facility] LABORATORY Comment: Diabetes: >=200 mg/dL plus symp toms BUN 34 (H) 8 - 18 mg/dL [facility] LABORATORY Creatinine 1.61 (H) 0.70 - 1.20 mg/dL [facility] LABORATORY Sodium 145 135 - 145 mmol/L [facility] LABORATORY Potassium 3.7 3.5 - 5.0 mmol/L [facility] Comment: Please note: ??Patients with WBC >100,00 0 may have falsely elevated Potassium levels. ??For accurate Potassium quantif ication in these patients send serum separator tube (gold top) for subsequent determinations. ??Contact the Clinical Chemistry Laboratory if there are any qu estions. Chloride 107 98 - 107 mmol/L [facility] CO2 26 22 - 31 mmol/L [facility] Anion Gap 12 5 - 15 mmol/L [facility] Calcium 8.8 8.5 - 10.5 mg/dL [facility] Estimated GFR 32 (L) >=60 mL/min/1.73 m?? [facility] Comment: This patient? s [...] Organization Address City/State/[place] [address] (ABNORMAL) Hemogram (04/27/2020 2:20 AM EST) Analysis Performed At Patho logist Time Signature WBC 7.8 4.0 - 9.5 [place] x10(3)/[facility] LABORATORY RBC 4.76 4.00 - [place] 5.21 [facility] x10(6)/[facility] LABORATORY Hemoglobin 14.0 11.7 - [place] 15.5 gm/dL [facility] Hematocrit 44.1 35.7 - [place] 45.8 % [facility] MCV 92.6 82.6 - [facility] 94.4 [facility] LABORATORY MCH 29.4 27.1 - [place] 32.0 pg [facility] MCHC 31.7 31.7 - [facility] VICENTE 35.0 gm/dL [facility] Platelets 294 145 - 357 [facility](3[facility] LABORATORY RDWSD 49.0 (H) 37.0 - [place] 46.0 [facility] LABORATORY RDWCV 14.3 (H) 11.5 - [place] 14.1 % [facility] MPV 10.4 7.6 - 12.9 [facility] VICENTE [facility] LABORATORY nRBC % Auto 0.0 % [facility] nRBC Abs Auto 0.000 0.000 - [place] 0.000 [facility] x10(3)/[facility] LABORATORY Specimen Anatomical Collection Method Collection Time Receive d Time (Source) Location / / Volume Laterality Blood specimen 04/27/2020 2:20 AM 021 2:45 (specimen) EST AM EST Resulting Agency Comment Spec In Lab Edwin Ayala MD HEMATOLOGY ORDERABLES Performing Organization Address City/State/ZIP [place] [address] XR Abdomen 1 view [...] For questions regarding this report, please contact [facility] number below. ? Electronically signed by: Viviane Fitzgerald, [facility] ([phone]), at 04/27/2020 3:08 AM Narrative 04/27/2020 3:08 AM EST EXAMINATION: XR [...] For questions regarding this report, please contact [facility] number below. Electronically signed by: Viviane Fitzgerald, [facility] ([phone]), at 04/27/2020 3:08 AM Edwin Ayala MD [...] below. ? Electronically signed by: Viviane Fitzgerald, [facility] ([phone]), at 04/26/2020 8:30 PM Narrative 04/26/2020 8:30 [...] For questions regarding this report, please contact [facility] number below. Electronically signed by: Viviane Fitzgerald, [facility] ([phone]), at 04/26/2020 8:30 PM Edwin Ayala MD [...] For questions regarding this report, please contact [facility] number below. ? Electronically signed by: Tamy Herring MD, [facility] ([phone]), at 04/26/2020 9:45 AM Narrative 04/26/2020 9:45 [...] this report, please contact e number below. Edwin Ayala MD IMG DX ORDERABLES Phosphorus (04/26/2020 4:26 AM EST) P athologist Signature Phosphorus 3.5 2.5 - 4.5 [facility]/dL [facility] Specimen Anatomical Collection Method Collection Time Receive d Time (Source) Location / / Volume Laterality Blood specimen 04/26/2020 4:26 AM 020 4:39 (specimen) EST AM EST Resulting Agency Comment Spec In Lab Edwin Ayala MD CHEMISTRY ORDERABLES Performing Organization Address City/[facility]/ZIP [facility] [place] [address] (ABNORMAL) Magnesium (04/26/2020 4:26 AM EST) P athologist Signature Magnesium 1.13 (H) 0.69 - 1.07 [facility] mmol/L [facility] Specimen Anatomical Collection Method Collection Time Receive d Time (Source) Location / / Volume Laterality Blood specimen 04/26/2020 4:26 AM 020 4:39 (specimen) EST AM EST Resulting Agency Comment Spec In Lab Edwin Ayala MD CHEMISTRY ORDERABLES Performing Organization Address City/[facility] [place] [address] (ABNORMAL) Basic Metabolic Panel (non-fasting) (04/26/2020 4:26 AM EST) P athologist Signature Glucose Lvl 173 65 - 199 [facility] mg/dL [facility] Comment: Diabetes: >=200 mg/dL plus symp toms BUN 36 (H) 8 - 18 mg/dL [facility] Creatinine 1.76 (H) 0.70 - 1.20 mg/dL [facility] Sodium 142 135 - 145 mmol/L [facility] Potassium 3.4 (L) 3.5 - 5.0 mmol/L [facility] Comment: Please note: ??Patients with WBC >100,00 0 may have falsely elevated Potassium levels. ??For accurate Potassium quantif ication in these patients send serum separator tube (gold top) for subsequent determinations. ??Contact the Clinical Chemistry Laboratory if there are any qu estions. Chloride 103 98 - 107 mmol/L [facility] CO2 26 22 - 31 mmol/L [facility] Anion Gap 13 5 - 15 mmol/L [facility] Calcium 9.2 8.5 - 10.5 mg/dL [facility] Estimated GFR 29 (L) >=60 mL/min/1.73 m?? [facility] Comment: This patient? s [...] Organization Address City/State/[place] [address] (ABNORMAL) Hemogram (04/26/2020 4:26 AM EST) Analysis Performed At Patho logist Time Signature WBC 7.5 4.0 - 9.5 [facility] x10(3)/[facility] LABORATORY RBC 4.97 4.00 - [facility] 5.21 [facility] x10(6)/[facility] LABORATORY Hemoglobin 14.6 11.7 - [facility] 15.5 gm/dL [facility] Hematocrit 44.8 35.7 - [place] 45.8 % [facility] MCV 90.1 82.6 - [place] 94.4 fL [facility] MCH 29.4 27.1 - [place] 32.0 pg [facility] MCHC 32.6 31.7 - [place] 35.0 gm/dL [facility] Platelets 300 145 - 357 [place] x10(3)/[facility] RDWSD 46.5 (H) 37.0 - [facility] 46.0 [facility] RDWCV 13.9 11.5 - [facility] 14.1 % [facility] MPV 9.9 7.6 - 12.9 [place] [facility] LABORATORY nRBC % Auto 0.0 % [facility] nRBC Abs Auto 0.000 0.000 - [place] 0.000 [facility] x10(3)/[facility] LABORATORY Specimen Anatomical Collection Method Collection Time Receive d Time (Source) Location / / Volume Laterality Blood specimen 04/26/2020 4:26 AM 020 4:39 (specimen) EST AM EST Resulting Agency Comment Spec In Lab Edwin Ayala MD HEMATOLOGY ORDERABLES Performing Organization Address City/State/[place] [address] XR Abdomen 1 view [...] For questions regarding this report, please contact [facility] number below. ? Narrative 04/26/2020 3:29 AM EST EXAMINATION: XR [...] For questions regarding this report, please contact lyn number below. Electronically signed by: Viviane Fitzgerald, [facility] ([phone]), at 04/26/2020 3:29 AM Edwin Ayala MD [...] For questions regarding this report, please contact lyn number below. ? Narrative 04/25/2020 11:50 AM EST EXAMINATION: XR [...] this report, please contact e number below. Edwin Ayala MD IMG DX ORDERABLES Phosphorus (04/25/2020 7:30 AM EST) P athologist Signature Phosphorus 4.0 2.5 - 4.5 [facility] mg/dL [facility] Specimen Anatomical Collection Method Collection Time Receive d Time (Source) Location / / Volume Laterality Blood specimen 04/25/2020 7:30 AM 020 7:46 (specimen) EST AM EST Resulting Agency Comment Spec In Lab Edwin Ayala MD CHEMISTRY ORDERABLES Performing Organization Address City/State/ZIP Code Phon e Number [address] Magnesium (04/25/2020 7:30 AM EST) athologist Signature Magnesium 1.03 0.69 - 1.07 [facility] mmol/L [facility] Specimen Anatomical Collection Method Collection Time Receive d Time (Source) Location / / Volume Laterality Blood specimen 04/25/2020 7:30 AM 020 7:46 (specimen) EST AM EST Resulting Agency Comment Spec In Lab Edwin Ayala MD CHEMISTRY ORDERABLES Performing Organization Address City/[facility] Phon e Number [address] (ABNORMAL) Basic Metabolic Panel (non-fasting) (04/25/2020 7:30 AM EST) athologist Signature Glucose Lvl 154 65 - 199 [facility] mg/dL [facility] Comment: Diabetes: >=200 mg/dL plus symp toms BUN 38 (H) 8 - 18 mg/dL [facility] Creatinine 2.19 (H) 0.70 - 1.20 mg/dL [facility] Sodium 142 135 - 145 mmol/L [place] estions. Chloride 102 98 - 107 mmol/L [facility] CO2 25 22 - 31 mmol/L [facility] Anion Gap 15 5 - 15 mmol/L [facility] Calcium 9.4 8.5 - 10.5 mg/dL [facility] Estimated GFR 22 (L) >=60 mL/min/1.73 m?? [facility] Comment: This patient? s [...] Organization Address City/State/[place] [address] (ABNORMAL) Hemogram (04/25/2020 7:30 AM EST) Analysis Performed At Patho logist Time Signature WBC 11.5 (H) 4.0 - 9.5 [facility] V[facility]ENTE x10(3)/[facility] LABORATORY RBC 4.77 4.00 - [place] 5.21 [facility] x10(6)/[facility] LABORATORY Hemoglobin 14.0 11.7 - [facility] 15.5 gm/dL [facility] Hematocrit 42.6 35.7 - [place] 45.8 % [facility] MCV 89.3 82.6 - [place] 94.4 [facility] LABORATORY MCH 29.4 27.1 - [place] 32.0 pg [facility] MCHC 32.9 31.7 - [facility] V[facility]ENT[facility] 35.0 gm/dL [facility] Platelets 336 145 - 357 [facility] x[facility](3[facility] LABORATORY RDWSD 46.1 (H) 37.0 - [place] 46.0 [facility] LABORATORY RDWCV 14.0 11.5 - [facility] VICENTE 14.1 % [facility] MPV 10.1 7.6 - 12.9 [facility] VICENTE [facility] LABORATORY nRBC % Auto 0.0 % [facility] nRBC Abs Auto 0.000 0.000 - [place] 0.000 [facility] x10(3)/[facility] LABORATORY Specimen Anatomical Collection Method Collection Time Receive d Time (Source) Location / / Volume Laterality Blood specimen 04/25/2020 7:30 AM 020 7:46 (specimen) EST AM EST Resulting Agency Comment Spec In Lab Edwin Ayala MD HEMATOLOGY ORDERABLES Performing Organization Address City/State/[place] [address] XR Abdomen 1 view [...] please contact e number below. ? Narrative 04/25/2020 8:08 AM EST EXAMINATION: XR ABDOMEN 1 VIEW (GENERIC) CLINICAL HISTORY: Contrast administered at MT, assess contrast progression TECHNIQUE: AP portable supine [...] VIEW (GENERIC) CLINICAL HISTORY: Contrast administered at MT, assess contrast progression TECHNIQUE: AP portable supine [...] this report, please contact e number below. Aime Kebede MD IMG DX ORDERABLES EKG [...] 465 ms MUSE SYSTEM (Bezet) Calculated P [place] 66 degrees MUSE SYSTEM Calculated R [place] 31 degrees MUSE SYSTEM Calculated T [place] 60 degrees MUSE SYSTEM INTERPRETATION Sinus rhythm [...] Signature Lactate WB 1.6 0.5 - 2.2 [facility] mmol/L [facility] Specimen Anatomical Collection Method Collection Time Receive d Time (Source) Location / / Volume Laterality Blood specimen 04/24/2020 9:04 PM 020 9:04 (specimen) EST PM EST Aime Kebede MD CHEMISTRY ORDERABLES Performing Organization Address City/State/ZIP Code Phon e Number [place] [id number]OSP[address] LAB[address]ORY Drive COVID-19 PCR (04/24/2020 8:55 PM EST) Patholo gist Method Time Signature SARS-CoV-2 Not Detected Not Detected [facility] RNA PCR [facility] Comment: This result should be [...] using the Simplexa COVID-19 Direct Assay by [employer] [place] as authorized by the FDA issued [...] of Pathology and Laboratory Medicine at [facility], certified under the Clinical Laboratory Improvement Amendmen [...] fact sheets at the following FDA website: https://www.fda.gov/medical-devices/leseyvdmuni-twgjser-1139-oxaka-19-yowgkkvam- llw-kxxqgiuuafhucf-ffsnece-devices/goszw-applqlqkgbz-haka SARS-CoV-2 Source TRUCK ENGINE TECHNICIAN Swab [facility] Specimen (Source) Anatomical Collection Method Collection Time Re ceived Time Location / / Volume Laterality Nasopharyngeal swab 04/24/2020 8:55 04/24 (specimen) PM EST 9:12 PM EST Comment: Symptoms->Surveillance Resulting Agency Comment Spec In Lab Andrez Bacaicodaphnie LINK TRAINER MECHANIC MICROBIOLOGY - GENERAL ORDER AYAD Performing Organization Address City/State/[place] [address] Request For 2nd Read [...] e number below. ? Electronically signed by: Johnson Ruth MD, [facility] ([phone]), at 04/24/2020 9:13 PM Narrative 04/24/2020 9:13 PM EST EXAMINATION: REQUEST FOR 2ND READ CT CHEST ABDOMEN PELVIS CLINICAL HISTORY: ?SBO; What Modality is the exam? CT Scan; Body Part (please add comments as necessary): SHARI/ABD/PEL; Sending [facility]; Date of exam 20200424; I belie ve [...] comments as necessary): SHARI/ABD/PEL; Sending [facility]; Date of exam 20200424; I belie ve [...] ABORH Recheck Status (04/24/2020 8:00 PM EST) [facility] Method Time Signature ABORH Type Completed [facility] LABORATORY Specimen Anatomical Collection Method Collection Time Receive d Time (Source) Location / / Volume Laterality Blood specimen 04/24/2020 8:00 PM 020 8:13 (specimen) EST PM EST Resulting Agency Comment Spec In Lab Brent Juarez MD BLOOD BANK ORDERABLES Performing Organization Address City/State/[place] [address] (ABNORMAL) Differential, Automated (04/24/2020 8:00 PM EST) [facility] Method Time Signature Neutrophils % 80.4 % [facility] Neutr Abs (ANC) 6.69 (H) 1.70 - [facility] 6.10 [facility] x10(3)/[facility] L LABORATORY Lymphocytes % 8.8 % [facility] Lymphocytes Abs 0.7 (L) 0.9 - 3.2 [facility] x10(3)/[facility] LABORATORY Monocytes % 9.5 % [facility] Monocyte Abs 0.8 0.3 - 0.9 [facility] x10(3)/[facility] LABORATORY Eosinophils % 0.1 % [facility] Eosinophils Abs 0.0 0.0 - 0.4 [facility] x10(3)/[facility] LABORATORY Basophils % 0.7 % [facility] Basophils Abs 0.1 0.0 - 0.1 [facility] x10(3)/[facility] LABORATORY Immature Gran % 0.50 % [facility] Comment: Immature granulocytes(IG's)percentage an d absolute count will include metamyelocytes, myelocytes, and promyelo cytes. Blood smears from CBCs yielding IG's will be scanned manually for concor dance. If this scan disagrees with the automated IG or if promyelocytes are not ed, a manual differential will be performed. Blanca Gran Abs 0.04 0.00 - 0.04 x10(3)/[facility] MAR Y [facility] Specimen Anatomical Collection Method Collection Time Receive d Time (Source) Location / / Volume Laterality Blood specimen 04/24/2020 8:00 PM 020 8:20 (specimen) EST PM EST Resulting Agency Comment Spec In Lab Anderz [employer] LINK TRAINER MECHANIC HEMATOLOGY ORDERABLES Performing Organization Address City/State/[place] [address] Hemogram (04/24/2020 8:00 PM EST) P athologist Signature WBC 8.3 4.0 - 9.5 [facility] x10(3)/[facility] LABORATORY RBC 4.87 4.00 - [facility] 5.21 [facility] x10(6)/[facility] LABORATORY Hemoglobin 14.4 11.7 - [place] 15.5 gm/dL [facility] Hematocrit 43.5 35.7 - [place] 45.8 % [facility] MCV 89.3 82.6 - [facility] 94.4 [facility] LABORATORY MCH 29.6 27.1 - [place] 32.0 pg [facility] MCHC 33.1 31.7 - [place] 35.0 gm/dL [facility] Platelets 317 145 - 357 [facility] x10(3)/[facility] LABORATORY RDWSD 44.7 37.0 - [place] 46.0 [facility] LABORATORY RDWCV 13.7 11.5 - [facility] VICENTE 14.1 % [facility]OR[facility] MPV 9.8 7.6 - 12.9 [facility] LABORATORY nRBC % Auto 0.0 % [facility] nRBC Abs Auto 0.000 0.000 - [place] 0.000 [facility] x10(3)/[facility] LABORATORY Specimen Anatomical Collection Method Collection Time Receive d Time (Source) Location / / Volume Laterality Blood specimen 04/24/2020 8:00 PM 8:20 (specimen) EST PM EST Resulting Agency Comment Spec In Lab Andrez Titus APRN HEMATOLOGY ORDERABLES Performing Organization Address City/State/[place] [address] Antibody screen (04/24/2020 8:00 PM EST) [facility] gist Method Time Signature Ab Screen Negative [facility] LABORATORY Expires at 04/27/2020 [place] [id number] on: [facility] Specimen Anatomical Collection Method Collection Time Receive d Time (Source) Location / / Volume Laterality Blood specimen 04/24/2020 8:00 PM 020 8:13 (specimen) EST PM EST Resulting Agency Comment Spec In Lab Brent Juarez MD BLOOD BANK ORDERABLES Performing Organization Address City/State/[place] [address] ABO/Rh Typing (04/24/2020 8:00 PM EST) P athologist Signature ABORh Type A Pos [facility] Specimen Anatomical Collection Method Collection Time Receive d Time (Source) Location / / Volume Laterality Blood specimen 04/24/2020 8:00 PM 8:13 (specimen) EST PM EST Resulting Agency Comment Spec In Lab Brent Juarez MD BLOOD BANK ORDERABLES Performing Organization Address City/State/ZIP Code Phon e Number [address] Phosphorus (04/24/2020 8:00 PM EST) athologist Signature Phosphorus 3.8 2.5 - 4.5 [facility] mg/dL [facility]OR[facility] Specimen Anatomical Collection Method Collection Time Receive d Time (Source) Location / / Volume Laterality Blood specimen 04/24/2020 8:00 PM 8:20 (specimen) EST PM EST Resulting Agency Comment Spec In Lab Andrez Bacaicoa LINK TRAINER MECHANIC CHEMISTRY ORDERABLES Performing Organization Address City/[facility]/[place] [address] Magnesium (04/24/2020 8:00 PM EST) athologist Signature Magnesium 0.94 0.69 - 1.07 [facility] mmol/L [facility]OR[facility] Specimen Anatomical Collection Method Collection Time Receive d Time (Source) Location / / Volume Laterality Blood specimen 04/24/2020 8:00 PM 8:20 (specimen) EST PM EST Resulting Agency Comment Spec In Lab Andrez Bacaicoa LINK TRAINER MECHANIC CHEMISTRY ORDERABLES Performing Organization Address City/[facility]/ZIP Code Phon e Number [address] APTT (04/24/2020 8:00 PM EST) athologist Signature PTT 29 25 - 37 sec [facility] Comment: The PTT is [...] Resulting Agency Comment Spec In Lab [facility] LINK TRAINER MECHANIC HEMATOLOGY ORDERABLES Performing Organization Address City/[facility]/[place] [address] (ABNORMAL) Prothrombin Time (04/24/2020 8:00 PM EST) P athologist Signature PT 12.7 (H) 9.4 - 12.5 [facility] LABORATORY INR 1.1 [facility] Comment: An INR <2.0 [...] EST Resulting Agency Comment Spec In Lab [facility] LINK TRAINER MECHANIC HEMATOLOGY ORDERABLES Performing Organization Address City/[facility]/ZIP Code Phon e Number [address] Lipase (04/24/2020 8:00 PM EST) P athologist Signature Lipase 19 0 - 60 [facility] unit/L [facility] LABORATORY Specimen Anatomical Collection Method Collection Time Receive d Time (Source) Location / / Volume Laterality Blood specimen 04/24/2020 8:00 PM 020 8:20 (specimen) EST PM EST Resulting Agency Comment Spec In Lab [facility] LINK TRAINER MECHANIC CHEMISTRY ORDERABLES Performing Organization Address City/[facility]/[place] [address] Hepatic Function Panel (04/24/2020 8:00 PM EST) athologist Signature Total Protein 6.8 6.1 - 8.0 [facility] Albumin 3.9 3.2 - 5.2 [facility] gm/dL [facility] AST 14 0 - 30 [facility]/L [facility] ALT 7 0 - 30 [facility]/L [facility] Alk Phos 80 35 - 105 [facility]/L [facility] Total 0.4 0.2 - 1.3 [facility] Bilirubin mg/dL [facility] Bili, Direct 0.1 0.0 - 0.3 [facility] mg/dL [facility] Specimen Anatomical Collection Method Collection Time Receive d Time (Source) Location / / Volume Laterality Blood specimen 04/24/2020 8:00 PM 020 8:20 (specimen) EST PM EST Resulting Agency Comment Spec In Lab Andrez Titus APRN CHEMISTRY ORDERABLES Performing Organization Address City/State/[place] [address] (ABNORMAL) Basic Metabolic Panel (non-fasting) (04/24/2020 8:00 PM EST) athologist [facility] Glucose Lvl 130 65 - 199 [facility] mg/dL [facility] Comment: Diabetes: >=200 mg/dL plus symp toms BUN 30 (H) 8 - 18 mg/dL [facility] Creatinine 2.19 (H) 0.70 - 1.20 mg/dL [facility] [facility] Sodium 143 135 - 145 mmol/L [facility] Potassium 3.9 3.5 - 5.0 mmol/L [facility] Comment: Please note: ??Patients with WBC >100,00 0 may have falsely elevated Potassium levels. ??For accurate Potassium quantif ication in these patients send serum separator tube (gold top) for subsequent determinations. ??Contact the Clinical Chemistry Laboratory if there are any qu estions. Chloride 106 98 - 107 mmol/L [facility] CO2 25 22 - 31 mmol/L [facility] Anion Gap 12 5 - 15 mmol/L [facility] Calcium 9.0 8.5 - 10.5 mg/dL [facility] Estimated GFR 22 (L) >=60 mL/min/1.73 m?? [facility] Comment: This patient? s [...] Organization Address City/State/ZIP Code Phon e Number [place] [id number] POCT urine dipstick (04/24/2020) [facility] gist Method Time Signature POC Sp [place] 1.015 1.002 - 1.030 POC pH, UA [...] S documented in this encounter Visit Diagnoses Not on filedocumented in this encounter Admitting Diagnoses Diagnosis SBO (small bowel obstruction) Unspecified intestinal obstruction documented in this encounter Administered Medications Inactive Administered Medications - up to 3 most recent administrations Medication Order MAR Action Action Date Dose Rate Site acetaminophen (Tylenol) tablet 650 Given 04/30/2020 8:09 PM EST 650 mg mg 650 mg, Oral, EVERY 6 HOURS, [...] on Thu04/30/20 at 0900, Until Discontinued, Routine BUpivacaine (pf) (Marcaine) (2.5 mg/mL) 0.25% Given 1:31 AM EST 26 mLs injection ONCE PRN, Starting on Thu04/27/20 at 0131, Until Thu05/01/20 at 1546, Intra-Operative (Intra-Procedure), Routine carvediloL (Coreg) tablet 12.5 mg Given 05/01/2020 8:28 AM EST 12.5 mg 12.5 mg, Oral, 2 TIMES DAILY WITH MEALS, First dose on Thu04/25/20 at 0800, Until Discontinued, Routine Given 04/30/2020 5:11 PM EST 12.5 mg Given 04/30/2020 9:01 AM EST 12.5 mg furosemide (Lasix) tablet 20 mg Given 05/01/2020 [...] 8:48 PM EST 5,000 Units hydrALAZINE (Apresoline) tablet 25 mg Given 05/01/2020 8:35 AM EST 25 mg 25 mg, Oral, 3 TIMES DAILY, First dose on Thu04/29/20 at 1030, Until Discontinued, Take with Food, Routine Given 04/30/2020 8:09 PM EST 25 mg Given 04/30/2020 3:46 PM EST 25 mg levothyroxine (Synthroid) tablet 75 mcg Given 05/01/2020 6:46 AM EST 75 mcg 75 mcg, Oral, DAILY, First dose on Thu04/25/20 at 0900, Until Discontinued, Routine Given 04/30/2020 7:41 AM EST 75 mcg Given 04/29/2020 9:03 AM EST 75 mcg lidocaine (Lidoderm) 5 % Patch Applied 04/30/2020 [...] For sleep, Routine oxyCODONE (Roxicodone) tablet 10-15 mg Given 04/30/2020 [...] 04/29/2020 9:03 AM EST 40 mg potassium phosphate (monobasic) (K-Phos) Given 05/01/2020 8:29 A M EST 500 mg tablet 500 mg 500 mg, Oral, 4 TIMES DAILY WITH MEALS & NIGHTLY, First dose on 04/29/20 at 0800, Until Discontinued, Dissolve tablets in 6-8 oz of water; for best results, soak tablets in water for 2-5 minutes, then stir and give to patient., Routine Given 04/30/2020 8:09 PM EST 500 mg Given 04/30/2020 5:11 PM EST 500 mg documented in this encounter Active and [...] Sindy Orourke RN)0655 (Given - Provider: Sindy Orourke, LAWRENCE)1247 (Given - Provider: Grace Turner RN)2008 (Given [...] 09 (Given - Provider: Julienne Turner RN) 09 (Given - Provider: Grace Turner RN) 08 (Given - Provider: Grace Awan RN ) 5 mg, Oral, DAILY, First dose on Thu at 0900, Until Discontinued, Routine aspirin EC tablet 81 mg 902 (Given - Provider: Grace Turner RN) 900 (Given - Provider: Garce Turner RN) 08 (Given - Provider: Grace Awan RN ) 81 mg, Oral, DAILY, First dose on Thu at 0900, Until Discontinued, Routine atorvastatin (Lipitor) tablet 20 mg 1827 (Given - Provider: Grace Turner RN) 171 (Given - Provider: Grace Turner RN) 20 mg, Oral, EVERY EVENING, First dose o n Thu04/25/20 at 1700, Until Discontinued, Routine bisacodyL (Dulcolax) suppository 10 mg 0 903 (Given - Provider: Grace Turner RN) 09 (Not Given - Provider: Grace Awan RN - Reason: Patient/family refused) 10 mg, Rectal, DAILY, First dose on Thu04/30/20 at 0900, Until Discontinued, Routine carvediloL (Coreg) tablet 12.5 mg 0909 (Given - Provid er: Grace Turner RN)182 (Given - Provider: Grace Turner RN) 09 (Given - Provider: Grace Turner RN)171 (Given - Provider: Grace Turner RN) 08 (Given - Provider: Grace Awan RN) 12.5 mg, Oral, 2 TIMES DAILY WITH MEALS, First dose on Thu04/25/20 at 0800, Until Discontinued, Routine furosemide (Lasix) tablet 20 mg 1001 (Given - Provider : Grace Turner RN)2047 (Given - Provider: Sindy Orourke RN) 0901 (Given - Provider: Grace Turner RN)2008 (Given - Provider: Bertha Sousa RN) 0829 (Given - Provider: Grace Awan RN) 20 mg, Oral, 2 TIMES DAILY, First dose o n 04/29/20 at 1030, Until Discontinued, Routine gabapentin (Neurontin) capsule 100 mg 2047 (Given - Pr ovider: Sindy Orourke RN) 2008 (Given - Provider: Bertha Sousa RN) 100 mg, Oral, NIGHTLY, First dose on Thu04/25/20 at 2100, Until Discontinued, Routine heparin (porcine) (5,000 units/1 mL) subcutaneous inje ction 5,000 Units 902 (Given - Provider: Grace Turner RN)2047 (Given - Provider: Sindy Orourke RN) 09 (Given - Provider: Grace Turner RN )2008 (Given - Provider: Bertha Sousa RN) 09 (Not Given - Provider: Grace Awan RN - Reason: Patient/family refused) 5,000 Units, Subcutaneous, EVERY 12 HOUR S SCHEDULED, First dose on Thu04/25/20 at 0112, Until Discontinued, Routine hydrALAZINE (Apresoline) tablet 25 mg 1001 (Given - Pr ovider: Grace Turner RN)1414 (Given - Provider: Grace Turner RN)2047 (Given [...] % topical patch 3 patch(Linked Group 1) 9046 (Patch Applied - Provider: Sindy Orourke RN - Comment: 1 patch per pt request) 2327 (Patch Applied - Provider: Bertha Sousa, RN - Comment: 1 patch per pt request) 3 patch, Transdermal, EVERY 24 HOURS, Fi rst dose on Thu04/29/20 at 2330, Until Discontinued, Apply patch(es) for 12 hours, and then remove for 12 hours., Routine lidocaine (Lidoderm) topical patch REMOVAL(Linked Group 1) 1045 (Patch Removed - Provider: Grace Turner RN) 1045 (Patch Removed - Provider: Grace boudreaux RN) Transdermal, EVERY 24 HOURS, First dose on Thu04/30/20 at 1045, Until Discontinued, Remove lidocaine 5% patch pantoprazole (Protonix) injection 40 mg(Linked Group 2 ) 902 (See Alternative - Provider: Grace Turner RN) [...] (Protonix) tablet 40 mg(Linked Group 2 ) 902 (Given - Provider: Grace Turner RN) 09 (Given - Provider: Grace Turner RN) 0828 (Given - Provider: Grace Awan RN) 40 mg, Oral, DAILY, First dose on Thu at 0900, Until Discontinued, DO NOT CRUSH OR OPEN If unable to take PO, may give IV, Routine potassium phosphate (monobasic) (K-Phos) tablet 500 mg 09 (Given - Provider: Grace Turner RN)1240 (Given - Provider: Grace Turner RN)1828 (Given - Provider: Grace Turner RN)2047 (Given - Provider: Sindy Orourke RN) 0742 (Given - Provider: Grace Turner RN)1247 (Given - Provider: Grace Turner RN)171 (Given - Provider: Grace Turner RN)2008 (Given - Provider: Bertha Sousa RN) 0829 (Given - Provider: Grace Awan, RN )1200 (Not Given - Provider: Grace Awan, RN - Reason: Patient/family refused) 500 mg, Oral, 4 TIMES DAILY WITH MEALS & NIGHTLY, First dose on 04/29/20 at 0800, Until Discontinued, Dissolve tablets in 6-8 oz of water; for best results, soak tablets in water for 2-5 minutes, then stir and give to patient., Routine sodium phosphate 15 mMol in sodium chloride 0.9% 150 m L infusion (COMPLETED) 0528 (New Bag - Provider: Sindy Orourke RN)0952 (Stopped - Provider: Grace Turner, LAWRENCE)0953 (New Bag - Provider: Grace Turner, RN)1500 (Stopped - Provider: Grace Turner RN) 15 mmol, Intravenous, EVERY 4 HOURS, 2 d oses, First dose on 04/29/20 at 0445, Last dose on 04/29/20 at 0845, Administer over 4 Hours, Administer over 4-6 hours Continuous Medication Order 04/29/2020 04/30/2020 05/01/2020 dextrose 5% and sodium chloride 0.45% wi th potassium chloride 20 mEq infusion (CANCELED) 0953 (Rate/Dose Change - Provider: Grace Turner RN)1849 (New Bag - Provider: Grace Turner, LAWRENCE) 0904 (Stopped - Provider: Grace Turner, LAWRENCE) 50 mL/hr, at 50 mL/hr, Intravenous, CONT INUOUS, Starting Thu04/27/20 at 1215, Until Thu04/30/20 at 0800, Warning Vesicant/Irritant Medication PRN Medication Order 04/29/2020 04/30/2020 05/01/2020 HYDROmorphone (Dilaudid) 0.5 mg/0.5 mL injection 0.2 m g () 1014 (Given - Provider: Grace Turner, LAWRENCE)1414 (Given - Provider: Grace Turner, LAWRENCE) 0.2 mg, Intravenous, EVERY 4 HOURS PRN, Starting 04/29/20 at 0945, Until 04/29/20 at 2144, Pain, Routine HYDROmorphone (Dilaudid) 0.5 mg/0.5 mL injection 0.4 m g (CANCELED) 0524 (Given - Provider: Sindy Orourke, LAWRENCE) 0.4 mg, Intravenous, EVERY 3 HOURS PRN, Starting C[place]ia 04/26/20 at 0428, Until Thu04/29/20 at 0941, Pain, Routine labetaloL (Normodyne) (5 mg/mL) injection solution 20 mg (CANCELED) 0014 (Given - Provider: Sindy Orourke, LAWRENCE) 20 mg, Intravenous, EVERY 2 HOURS PRN, S tarting Cinthia 04/26/20 at 0521, Until 04/30/20 at 1125, High Blood Pressure, SBP > 160, Routine melatonin tablet 3 mg 3 mg, Oral, NIGHTLY PRN, Starting Thu at 0111, Until Thu05/01/20 at 1546, For sleep, Routine oxyCODONE (Roxicodone) tablet 10-15 mg(Linked Group 3) 2253 (See Alternative - Provider: Sindy Orourke RN) 0745 (See Alternative - Provider: Grace Turner, LAWRENCE)2208 (Given - Provider: Bertha Sousa, LAWRENCE) 10-15 mg, Oral, EVERY 4 HOURS PRN, Start ing Thu04/29/20 at 2244, Until Thu05/01/20 at 1546, Pain, severe pain (7-10), Initial dose 10mg. If pain control not adequate in 60 minutes, give additional 5mg, Routine oxyCODONE (Roxicodone) tablet 5-10 mg(Linked Group 3) 2253 (Given - Provider: Sindy Orourke RN) 0745 (Given - Provider: Grace Turner, LAWRENCE )2208 [...]
Routine documented in this encounter Care Teams Heel Sprayer Relationship Specialty Start Date End Date Sanjuanita Lee MD PCP - General 03/05/13 12/23/[address] [place] [address] documented as of this encounter
--- OUTSIDE RECORDS SUMMARY | 2022-02-22 23:30 | XMS_ITS | Encounter Summary ---
:1950 Author Organization [facility] [place] [address] Care Team Providers Name Role Phone Sanjuanita Lee MD Primary Care Provider Encounter Details Date Type Department Care Team Description 04/24/2020 Ancillary Procedure Radiology Library at [place] [facility]ev Redd MD [id number] [place] [id number] [phone] Social History Tobacco Use Types Packs/Day Years [...] Name Priority Date/Time Associated Diagnosis Comme nts FILM LIBRARY Routine 04/24/2020 4:10 PM Results f or this STORAGE ONLY CT EST procedure ar e in CHEST ABDOMEN the results PELVIS section. documented in this encounter Results Film Library- Storage Only CT Chest Abdomen Pelvis (04/24/2020 4:10 PM EST) Specimen (Source) Anatomical Location Collection Method / Collectio n Time Received Time / Laterality Volume Narrative RAD - 04/24/2020 4:10 PM EST This exam is auto-finalizing. It's purpo se is for storage only. Sanjuanita Lee MD IMG FILM LIBRARY ORDERABLES Performing Organization Address City/State/ZIP Code Phon e Number [place], [place] documented in this encounter Visit Diagnoses Not on filedocumented in this encounter Care Teams Sprayer Operator Relationship Specialty Start Date End Date Sanjuanita Lee MD PCP - General 03/05/13 12/23/[address] [place] [address] documented as of this encounter
--- OUTSIDE RECORDS SUMMARY | 2022-02-22 23:30 | XMS_ITS | Encounter Summary ---
:1950 Author Organization [facility] [place] [address] Care Team Providers Name Role Phone Sanjuanita Lee MD Primary Care Provider Encounter Details Date Type Department Care Team Description 04/18/2020 Tech Visit Vascular Lab at [facility] Meli Abdom ina aortic aneurysm (AAA) without rupture; [facility] J, RVT Bilateral carotid artery disease, unspecified type; [facility] Renal artery stenosis, nativ e; [facility] PVD (syl pheral vascular disease) [place] [address] Social History Tobacco Use Types Packs/Day [...] Name Priority Date/Time Associated Diagnosis Comme nts BEVERLY, LEGS, MULTIPLE Routine 04/18/2020 8:40 AM PVD (peripheral Results for this LEVELS EST vascular disease) procedure are in with claudication the result s section. RENAL ARTERY Routine 04/18/2020 8:39 AM Renal artery Results f or this DUPLEX, UNIL EST stenosis, [place] procedure a re in the results section. AAA DUPLEX COMPLETE Routine 04/18/2020 8:37 AM Abdominal aorti c Results for this EST aneurysm (AAA) procedure are in without rupture the results section. CAROTID DUPLEX, Routine 04/18/2020 8:37 AM Bilateral carotid R esults for this BILATERAL EST artery disease, procedure ar e in unspecified type the results section. documented in this encounter Results BEVERLY, legs, multiple levels (04/18/2020 8:40 AM EST) Component Value Ref Test Analysis Performed At [facility] Range Method Time Signature VB Text Department: Vascular Surgery Lab [facility] Report Patient: [id number] (CHARLENE HARMON) CPT: 52064 ICD10: I73.9;I70.213 Referring Physician: UNIQUE BRAVO ?? Indications: AAA, PVD, claudication, ? peripheral perfusion Diabetes mellitus: No ICD10 Diagnosis Code: ??I70.213, I73.9 Findings: Right ?Pressure (mm Hg) ?? BEVERLY ??Waveform ? TBI ?? Brachial Artery ?161 ? Dorsalis Pedis (Ankle) Arter y ?151 ? 0.94 ??Triphasic ? Posterior Tibial (Ankle) Art mikie ??154 ? 0.96 ??Bi-Triphasic ? Great Toe ?93 ?0.58 ?? Left ? Pressure (mm Hg) ?? BEVERLY ??Waveform ?? TBI ?? Brachial Artery ?152 ? Dorsalis Pedis (Ankle) Arter y ?98 ?0.61 ??Biphasic ? Posterior Tibial (Ankle) Art mikie ??81 ?0.50 ??Biphasic ? Great Toe ?151 ? 0.94 ?? Interpretation: RIGHT: Mild lower extremity arterial occlusive d isease. No significant change compared to previous exam. LEFT: Moderate lower extremity arterial occlusive disease. T he great toe pressure may be falsely elevated. Deterioration compared to previous exam. Previous ABIs with change from previous value: Date ?RIGHT DP ?? RIGHT PT ?? RT GR TOE ??RT Sec T OE ??1.02 ? 0.96 ? 0.48 ? ---- ??1.02( .00) 1.00(+.04) 0.47(-.01) ---- Current ? 0.94(-.08) 0.96(-.04) 0.58(+.11) ---- Date ?LEFT DP ?LEFT PT ?LT GR TOE LT Sec T OE ??0.52 ? 0.58 ? 0.31 ? ---- ??0.67(+.15) 0.73(+.15) 0.40(+.09) ---- Current ? 0.61(-.06) 0.50(-.23) 0.94(+.54) ---- Electronically Signed by: UNIQUE BRAVO on 2020-04-18 01:15 :56 PM VB Text End of Report [facility] Report Specimen (Source) Anatomical Collection Method Collection Time Re ceived Time Location / / Volume Laterality 04/18/2020 8:40 AM EST Unique Bravo MD VASCULAR ORDERABLES Performing Organization Address City/State/ZIP Code Phon e Number [email or web address] Renal Artery Duplex, Unil (04/18/2020 8:39 AM EST) Component Value Ref Test Analysis Performed At [facility] Range Method Time Signature VB Text Department: Vascular Surgery Lab [facility] Report Patient: [id number] (CHARLENE HARMON) CPT: 27028 ICD10: I70.1 Referring Physician: UNIQUE BRAVO ?? Indications: RIGHT renal artery BPG, ? patency/stenosis ICD10 Diagnosis Code: I70.1 Findings: Syl Renal Aorta ? PSV (cm/s): 38 ? EDV (cm/s): 0 ? RI: 1.00 Renal Artery Distal, Right ? PSV (cm/s): 67 ? EDV (cm/s): 12 ? RAR: 1.8 ? RI: 0.82 Mid Pole Renal Parenchyma, Right ? PSV (cm/s): 27 ? EDV (cm/s): 6 ? RI: 0.76 ? AT (ms): 40 Renal [place], Right ? AT (ms): 40 Kidney Length, Right ? Length (cm): 10.2 Renal Vein, Right ? Patent: Patent Interpretation: RIGHT: The renal artery bypass was not clearly visualized, c annot exclude stenosis in areas not visualized. However, velocities obtain ed at what is suspected to be the distal segment of the bypass graft had n o evidence of stenosis (66 cm/sec and 70 cm/sec). The [place] distal renal artery is patent with no evidence of hemodynamically significant stenosis. Patent intraparenchymal arteries with normal arterial flow . No identifiable change when compared to the previous exam. Previous Renal Studies: Date ? Right PSV - RAR ? Left PSV - RAR ? 320 ?3.37 ? 255 ?2. 68 ? 45 ? 1.15 ? 177 ?4. 54 ? 163 ?---- ? ---- ? --- - ? 37 ? ---- ? ---- ? --- - ? 59 ? 0.84 ? ---- ? --- - ? 88 ? 1.07 ? 195 ?2. 38 ? 77 ? 0.94 ? 188 ?2. 29 Current Exam ?? 67 ? 1.76 ? ---- ? ---- Electronically Signed by: UNIQUE BRAVO on 2020-04-18 12:13 :30 PM VB Text End of Report [facility] Report Specimen (Source) Anatomical Collection Method Collection Time Re ceived Time Location / / Volume Laterality 04/18/2020 8:39 AM EST Unique Bravo MD VASCULAR ORDERABLES Performing Organization Address City/State/ZIP Code Phon e Number [email or web address] Carotid Duplex, Bilateral (04/18/2020 8:37 AM EST) Component Value Ref Test Analysis Performed At [facility] Range Method Time Signature VB Text Department: Vascular Surgery Lab [facility] Report Patient: [id number] (CHARLENE HARMON) CPT: 25556 ICD10: I65.23;I77.9 Referring Physician: UNIQUE BRAVO ?? Indications: Carotid stenosis, PVD, ? carotid stenosis ICD10 Diagnosis Code: I65.23, I77.9 Findings: ICA Proximal, Right ? PSV (cm/s): 68 ? EDV (cm/s): 17 ? ICA/CCA: 1.2 ? Plaque Structure: Echogenic ? Plaque Surface: Irregular ? %Stenosis: <15% ICA Distal, Right ? PSV (cm/s): 93 ? EDV (cm/s): 16 ? ICA/CCA: 1.6 CCA Distal, Right ? PSV (cm/s): 59 ? EDV (cm/s): 12 ? %Stenosis: Minimal CCA Proximal, Right ? PSV (cm/s): 73 ? EDV (cm/s): 9 External Carotid Artery, Right ? PSV (cm/s): 53 ? EDV (cm/s): 0 ? %Stenosis: <50% Vertebral, Right ? PSV (cm/s): 44 ? EDV (cm/s): 8 ? Direction of Flow: Antegrade ICA Proximal, Left ? PSV (cm/s): 68 ? EDV (cm/s): 17 ? ICA/CCA: 1.1 ? Plaque Structure: Echogenic ? Plaque Surface: Irregular ? %Stenosis: <15% ICA Distal, Left ? PSV (cm/s): 85 ? EDV (cm/s): 20 ? ICA/CCA: 1.4 CCA Distal, Left ? PSV (cm/s): 60 ? EDV (cm/s): 13 ? %Stenosis: Minimal CCA Proximal, Left ? PSV (cm/s): 51 ? EDV (cm/s): 10 External Carotid Artery, Left ? PSV (cm/s): 60 ? EDV (cm/s): 0 ? %Stenosis: <50% Vertebral, Left ? PSV (cm/s): 93 ? EDV (cm/s): 19 ? Direction of Flow: Antegrade Interpretation: RIGHT: There is minimal irregular plaque in the proximal int ernal carotid artery causing <15% stenosis when compar ed to the more distal internal carotid artery. The bifurcation leve l is in the mid neck. No significant change compared to previous exam. LEFT: There is minimal irreg ular plaque in the proximal internal carotid artery causing <15% stenosis when c ompared to the more distal internal carotid artery. The bifurcation level is in the mid neck. No significant c hange compared to previous exam. Vertebral Artery Data: Patent vertebral arteries with normal antegrade Doppler waveforms and velocities bilaterally. Previous Carotid Studies: Date ?RIGHT ICA St enosis ??PSV ?? Ratio ?? LEFT ICA Stenosis ?? PSV ?? Ratio ? <15% ? 91 ?2.00 ? <15% ? 86 ?1.10 Current Exam ? <15% ? 68 ?1.60 ? <15% ? 68 ?1.40 Electronically Signed by: UNIQUE BRAVO on 2020-04-18 12:13 :50 PM VB Text End of Report [facility] Report Specimen (Source) Anatomical Collection Method Collection Time Re ceived Time Location / / Volume Laterality 04/18/2020 8:37 AM EST Unique Bravo MD VASCULAR ORDERABLES Performing Organization Address City/State/ZIP Code Phon e Number [email or web address] AAA Duplex, Complete/Bilateral (04/18/2020 8:37 AM EST) Component Value Ref Test Analysis Performed At [facility] Range Method Time Signature VB Text Department: Vascular Surgery Lab [facility] Report Patient: [id number] (CHARLENE HARMON) CPT: 96235 ICD10: I71.4 Referring Physician: UNIQUE BRAVO ?? Indications: AAA w/o rupture, ? progression ICD10 Diagnosis Code: I71.4 Findings: Syl Renal Aorta ? Diam AP (cm): 4.0 ? Diam Lateral (cm): 3.9 Infra Renal Aorta ? Diam AP (cm): 4.0 ? Diam Lateral (cm): 5.2 Distal Aorta ? Diam AP (cm): 3.3 ? Diam Lateral (cm): 3.6 Common Iliac Artery, Proximal, Right ? PSV (cm/s): 336 ? EDV (cm/s): 0 ? Diam AP (cm): 1.0 ? Diam Lateral (cm): 1.1 External Iliac Artery, Mid, Right ? PSV (cm/s): 67 ? EDV (cm/s): 12 Common Iliac Artery, Proximal, Left ? PSV (cm/s): 664 ? EDV (cm/s): 88 ? Diam AP (cm): 1.1 ? Diam Lateral (cm): 1.4 Interpretation: Patent infrarenal abdominal aortic aneurysm containing sof t plaque/thrombus with a maximum diameter of 4.0 x 5.2 cm at the mid segment. The proximal aorta measureme nt has increased significantly compared to previous exam (3.0 x 3.2 cm; 10/05/2019). Patent common iliac arteries with elevated velocities consis tent with >50% stenosis. No evidence of OTIS aneurysm. Previous AAAs with change from previous value: Date ? DIAM AP ?DIAM LAT ? 4.00 ? 4.70 Current Exam ?? 4.00 ( 0.00) ?? 5.20 (+0.50) Electronically Signed by: UNIQUE BRAVO on 2020-04-18 12:14 :04 PM VB Text End of Report [facility] Report Specimen (Source) Anatomical Collection Method Collection Time Re ceived Time Location / / Volume Laterality 04/18/2020 8:37 AM EST Unique Bravo MD VASCULAR ORDERABLES Performing Organization Address City/State/ZIP Code Phon e Number [email or web address] documented in this encounter Visit Diagnoses Diagnosis Abdominal aortic aneurysm (AAA) without rupture Bilateral carotid artery disease, unspec ified type Renal artery stenosis, [place] Atherosclerosis of renal artery PVD (peripheral vascular disease) with c laudication Peripheral vascular disease, unspecified documented in this encounter Care Teams Watch Train Inspector Relationship Specialty Start Date End Date Sanjuanita Lee MD PCP - General 03/05/13 12/23/[address] [place] [address] documented as of this encounter
--- OUTSIDE RECORDS SUMMARY | 2022-02-22 23:30 | XMS_ITS | Encounter Summary ---
:1950 Author Organization [place] [address] Care Team Providers Name Role Phone Sanjuanita Lee MD Primary Care Provider Encounter Details Date Type Department Care Team Description 10/17/2019 Office Visit Solid Organ Transplant Ilana Rivera age 3 chronic kidney disease; at [facility] S RN Pre-transplant [place] [address] Social History Tobacco Use Types Packs/Day [...] Sign Reading Time Taken Comments Blood Pressure 126/77 10/17/2019 1:45 PM EDT Pulse 69 10/17/2019 1:45 PM EDT Temperature - - Respiratory Rate - - Oxygen Saturation - - Inhaled Oxygen Concentration - - Weight 43.6 kg (96 lb 3.2 oz) 10/17/2019 1:45 PM EDT Height - - Body Mass Index 18.79 10/05/2019 11:26 AM EDT documented in this encounter Progress Notes Ilana Rivera RN - 10/17/2019 1:00 PM EDT Per order by Dr. Salinas, patient having cortrosyn stim. test today. As directed, patient went to lab for serum cortisol level first. Patient informed prior to this appointment that to do this test they cannot have taken prednisone. Patient reports that they are not taking prednisone. After having se rum cortisol level drawn at 3L, patient came to clinic for IM injection cortrosyn 0.25mg, given in patient`s left deltoid. Patient was instructed as to what to expect if they were to have an allergic reaction to the medicine, and that they should come back to this clinic, or go to the ER, if they wereto have any s/s of a reaction. Patient verbalizes comprehension. Injection given at 1335 , and Jus report to the lab for repeat cortisol level to be drawn at 1435 . Results to be read by Dr Salinas. documented in this encounter Plan of Treatment Scheduled Procedures Name Priority Associated Diagnoses Date/Time EGD, UPPER GI ENDOSCOPY Gastroesophageal reflux disease, esophagitis presence not specifi ed documented as of this encounter Visit Diagnoses Diagnosis Stage 5 chronic kidney disease Pre-transplant evaluation for kidney tra nsplant Other specified pre-operative examinatio n documented in this encounter Administered Medications Inactive Administered Medications - up to 3 most recent administrations Medication Order MAR Action Action Date Dose Rate Site cosyntropin (CORTROSYN) Given 10/17/2019 1:26 PM 0.25 mg Right Deltoid injection 0.25 mg EDT 0.25 mg, Intramuscular, ONCE, 1 dose, On 10/17/19 at 1345, Routine documented in this encounter Care Teams Nuclear Equipment Research Engineer Relationship Specialty Start Date End Date Sanjuanita Lee MD PCP - General 03/05/13 12/23/[address] [place] [address] documented as of this encounter
--- OUTSIDE RECORDS SUMMARY | 2022-02-22 23:30 | XMS_ITS | Encounter Summary ---
:1950 Author Organization [facility] [place] [address] Care Team Providers Name Role Phone Sanjuanita Lee MD Primary Care Provider Encounter Details Date Type Department Care Team Description 12/02/2019 External Results Solid Organ Transplant Julio Salinas, at [facility] [place] [address] TRANSPLANT SURGERY [phone] [place], [place] [address] (Wo rk) Social History Tobacco [...] Name Priority Date/Time Associated Diagnosis Comme nts DH AMB MONTHLY PRA - KIDNEY Routine 12/01/2019 documented in this encounter Results Transplant: Monthly PRA (Kidney) - EXTERNAL collections (12/01/2019) Narrative This result has an attachment that is no t available. Brent Salinas MD CHEMISTRY ORDERABLES documented in this encounter Visit Diagnoses Not on filedocumented in this encounter Care Teams Casing Puller Relationship Specialty Start Date End Date Sanjuanita Lee MD PCP - General 03/05/13 12/23/[address] [place] [address] documented as of this encounter
--- OUTSIDE RECORDS SUMMARY | 2022-02-22 23:30 | XMS_ITS | Encounter Summary ---
:1950 Author Organization [facility] [place] [address] Care Team Providers Name Role Phone Sanjuanita Lee MD Primary Care Provider Encounter Details Date Type Department Care Team Description 02/08/2020 Office Visit Nephrology Tyron Kemp MD [facility] [place] [address] CKD (chronic kidney disease) stage 4, GF R 15-29 ml/min; Hypertension at [facility] Live Truck Technician, A None Hypertensive kidney disease [place] [address] Social History Tobacco Use Types Packs/Day [...] Sign Reading Time Taken Comments Blood Pressure 109/60 02/08/2020 11:01 AM EDT Pulse 67 02/08/2020 11:01 AM EDT Temperature - - Respiratory Rate - - Oxygen Saturation - - Inhaled Oxygen Concentration - - Weight 44.9 kg (99 lb) 02/08/2020 11:01 AM EDT Height 152.4 cm (5') 02/08/2020 11:01 AM EDT Body Mass Index 19.33 02/08/2020 11:01 AM EDT documented in this encounter Progress Notes Tyron Kemp MD - 02/08/2020 11:00 AM EDT PATIENT: Charlene Harmon : 1950 Interval history: Patient reports doing very well in the past several months. She has not had any hospitalizations in the interval. She is increasing her cardiovascular fitness and is able to walk up to 2 miles a day. Additionally she remains busy doing yard work. She was evaluated from transplant anddeemed to be poor donor candidate given diffuse vascular disease. Son is a willing donor. She still does not care to further discuss dialysis Assessment/Plan: #GAEL on CKD 3b/4: CR??2.4mg/dl in 05/15 -> eGFR 19 within patient's range. Patient has been evaluated by transplant and not listed due to concerns of diffuse atherosclerotic disease which would complicate transplant placement. Patient is definitively stated she would not care to pursue dialysis to be necessary. Plan:??Continue present management. Avoid nephrotoxins. Maintain good hydration. #Hemodynamics?? Blood Pressure:??109/60 mmHg..??Diligent home recordings??are reviewed 90% of readings within goal. No hypertensive emergencies noted in the interval.?? Status post left renal bypass?? Antihypertensives:??Carvedilol 12.5 BID, Amlodipine 10, Isodril 20 mg 3 times a day, amlodipine 5 mg Plan: Patient to continue to follow home pressures. goal <??130/80mmHg. Volume Status:??Euvolemic #Hemoglobin Hemoglobin 13.1 g/dL not consistent with significant anemia Goal Hgb 10-12g/dl, Ferritin>100ng/ml, TSAT>20% ?? #Acid/Base status Bicarb 27 mmol/L not consistent with significant acidosis Would Add NaHCO3 if serum bicarb persistently < 22mmol/l ?? #Bone Mineral Health PTh within goal. Phosphorus and calcium within normal Stage 3 PTH: 35-70 pg/ml ?Phos 2.7-4.6 ??Ca 8.5-10.5mg/dl Renal Clinic Follow-Up Plan: 4 to 6 months Past Medical History: Diagnosis Date ??? AAA (abdominal aortic aneurysm) [id number] angiogram; 3.2 cm infrarenal ??? Constipation ??? Dyslipidemia ??? Hypertension ??? Insomnia ??? Peripheral vascular disease ??? Renal artery stenosis R; per 2009 angiogram Past Surgical History: Procedure Laterality Date ??? HYSTERECTOMY ? ? PRO CATHETER 1ST ORDER W/WO ART PUNCT/FLUORO/S&I BILATERAL Bilateral 09/01/[address] (FIRST-ORDER), MAIN RENAL ART & ANY ACC, W/S&I; ANDREY (WRVU 6.99) performedby Regan Chen MD at [facility] MAIN OR ??? PRO UPPER GI ENDOSCOPY, DIAGNOSTIC 01/20/2014 EGD, UPPER GI ENDOSCOPY performed by Corby Cano MD at [facility] ENDOSCOPY ??? PRO UPPER GI ENDOSCOPY, DIAGNOSTIC N/A 07/28/2017 EGD, UPPER GI ENDOSCOPY performed by Snow Liao MD at [facility] ENDOSCOPY ??? PRO VEIN BYPASS GRAFT, AORTOILIOFEMORAL N/A 09/07/2018 @BYPASS GRAFT, AORTOILIAC W\ VEIN CONDUIT (WRVU 41.88) performed by Isac Moody MD at [facility] MAIN OR Family History Problem Relation Age of Onset ??? Hypertension Mother ??? Cervical Cancer Mother ??? Chronic Obstructive Pulmonary Disease Father ??? Hypertension Sister Social History Social History Narrative , lives with Rodolfo of 50 years. 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 Hoping to retire 11/2018 and travel throughout [facility] and [place] with Rodolfo. No history of heavy etoh use 2 children healthy Outpatient medications: Current Outpatient Medications on File Prior to Visit Medication Sig Dispense Refill ??? hydrALAZINE (Apresoline) 25 mg Tablet Take 1 tablet by mouth 3 times daily. 270 tablet 3 ??? isosorbide dinitrate (ISORDIL) 20 mg Tablet Take 1 tablet by mouth 3 times daily. 270 tablet 3 ??? levothyroxine (Synthroid) 75 mcg Tablet Take 1 tablet by mouth daily. 90 tablet 3 ??? carvediloL (Coreg) 12.5 mg Tablet Take 1 tablet by mouth 2 times daily (with meals). 180 tablet 3 ??? amLODIPine (Norvasc) 5 mg [...] by mouth daily. No current facility-administered medications on file prior to visit. MEDICATIONS: No Known Allergies ROS: Constitutional - No fevers, chills, weight loss Skin - No rash or itchy skin HEENT - No headaches, visual changes, oral mucosa dryness Resp - No cough, shortness of breath CV - No chest pain, difficulty breathing lying flat, leg swelling GI - No nausea, vomiting,change in bowel habits/abdominal pain - No change in urine output. No pain urinating or blood in urine. Neuro - No weakness. No numbness/ tingling in extremities. MSK- No joint pain/swelling PHYSICAL EXAM: Last value Temperature Heart Rate Heart Rate: 67 Blood Pressure BP: 109/60 Respiratory Rate SpO2 Appearance - Alert, Comfortable. Skin - No exanthem. HEENT - Sclera white. Mucous membranes moist. Chest:. Lungs clear to ausculatation w/o wheezes/ rhonchi/ crackles. Heart - S1 and S2 clear w/o murmur, gallop, or rub. JVP not elevated. Abd - Soft. + BS. No bruit. Non tender. Ext - . Warm. No cyanosis. No dependent edema. Neuro - No asterixis. STUDIES: Labs: CBC: Recent Labs 02/08/20 1010 10/17/19 1247 05/24/19 1316 WBC 9.0 7.8 11.2* HGB 13.1 13.3 12.8 PLATELET 296 267 236 Chemistry: Recent Labs 02/08/20 1010 10/17/19 1247 05/24/19 1316 NA 139 139 139 K 4.1 3.4* 3.7 CL 102 99 97* CO2 27 24 26 BUN 25* 36* 31* CREATININE 2.40* 2.22* 2.31* GLUCOSE 98 120 148 Recent Labs 02/08/20 1010 10/17/19 1247 05/24/19 1316 CALCIUM 9.3 9.1 9.3 PHOS 3.3 3.6 3.9 LFT's: Recent Labs 02/08/20 1010 05/24/19 1316 ALBUMIN 4.0 4.2 Tyron Kemp MD, MPH Section of Nephrology #[id number] documented in this encounter Plan of Treatment [...] unspecified documented in this encounter Care Teams Vp Respiratory Relationship Specialty Start Date End Date Sanjuanita Lee MD PCP - General 03/05/13 12/23/[address] [place] [address] documented as of this encounter
--- OUTSIDE RECORDS SUMMARY | 2022-02-22 23:30 | XMS_ITS | Encounter Summary ---
:1950 Author Organization [facility] [place] [address] Care Team Providers Name Role Phone Sanjuanita Lee MD Primary Care Provider Reason for Visit Reason Onset Date Comments Error 12/01/2019 Encounter Details Date Type Department Care Team Description 12/01/2019 Telephone Solid Organ Transpla nt at [facility] Wil Al[place]te, [place] [address] Social History Tobacco Use Types Packs/Day [...] this encounter Miscellaneous Notes Addendum Note - Wil Almonte, RN - 12/01/2019 11:14 AM EDT Addended by: WIL ALMONTE on: 12/01/2019 11:14 AM Modules accepted: Level of Service, SmartSet Telephone Encounter - Wil Almonte RN - 12/01/2019 11:13 AM EDT This encounter was created in error - please disregard. Telephone Encounter - Wil Almonte RN - 12/01/2019 10:48 AM EDT Called to update pt about committee decision to proceed with right heart cath and then determine next steps. Left message for pt to return my call. Will await return call. documented in this encounter Plan of Treatment Scheduled Procedures Name Priority Associated Diagnoses Date/Time EGD, UPPER GI ENDOSCOPY Gastroesophageal reflux disease, esophagitis presence not specifi ed documented as of this encounter Visit Diagnoses Diagnosis DH ERRONEOUS ENCOUNTER documented in this encounter Care Teams Risk And Insurance Consultant Relationship Specialty Start Date End Date Sanjuanita Lee MD PCP - General 03/05/13 12/23/[address] [place] [address] documented as of this encounter
--- OUTSIDE RECORDS SUMMARY | 2022-02-22 23:30 | XMS_ITS | Encounter Summary ---
:1950 Author Organization [facility] [place] [address] Care Team Providers Name Role Phone Sanjuanita Lee MD Primary Care Provider Encounter Details Date Type Department Care Team Description 01/25/2020 Orders Only Nephrology Hypertension Rubén, CKD (chronic kidney at [facility] Velasquez disease) stage 4, GFR [facility] D rive 15-29 ml/[place] [address] Social History Tobacco Use Types Packs/Day [...] this encounter Results (ABNORMAL) Protein/Creatinine Ratio, urine (02/08/2020 10:22 AM EDT) P athologist Signature U Creatinine 34 mg/dL [facility] U Protein Ran 16 (H) 0 - 12 [facility] mg/dL [facility] Prot/Cre Ratio 0.5 ratio [facility] Specimen Anatomical Collection Method Collection Time Receive d Time (Source) Location / / Volume Laterality Urine specimen 02/08/2020 10:22 0 (specimen) AM EDT 10:27 AM EDT Resulting Agency Comment Spec In Lab Tyron Kemp MD URINE ORDERABLES Performing Organization Address City/State/ZIP Code Phon e Number [address] PTH (02/08/2020 10:10 AM EDT) athologist Signature PTH 54 15 - 65 [facility] pg/mL [facility] Specimen Anatomical Collection Method Collection Time Receive d Time (Source) Location / / Volume Laterality Blood specimen 02/08/2020 10:10 0 (specimen) AM EDT 10:23 AM EDT Resulting Agency Comment Spec In Lab Tyron Kemp MD CHEMISTRY ORDERABLES Performing Organization Address City/State/ZIP Code Phon e Number [address] Uric acid (02/08/2020 10:10 AM EDT) P athologist Signature Uric Acid 6.0 2.5 - 6.5 [facility] mg/dL [facility] Specimen Anatomical Collection Method Collection Time Receive d Time (Source) Location / / Volume Laterality Blood specimen 02/08/2020 10:10 0 (specimen) AM EDT 10:23 AM EDT Resulting Agency Comment Spec In Lab Tyron Kemp MD CHEMISTRY ORDERABLES Performing Organization Address City/[facility]/ZIP Code Phon e Number [address] Albumin Level (02/08/2020 10:10 AM EDT) athologist Signature Albumin 4.0 3.2 - 5.2 [facility] gm/dL [facility] Specimen Anatomical Collection Method Collection Time Receive d Time (Source) Location / / Volume Laterality Blood specimen 02/08/2020 10:10 0 (specimen) AM EDT 10:23 AM EDT Resulting Agency Comment Spec In Lab Tyron Kemp MD CHEMISTRY ORDERABLES Performing Organization Address City/State/ZIP Code Phon e Number [address] Phosphorus (02/08/2020 10:10 AM EDT) P athologist Signature Phosphorus 3.3 2.5 - 4.5 [facility] mg/dL [facility] Specimen Anatomical Collection Method Collection Time Receive d Time (Source) Location / / Volume Laterality Blood specimen 02/08/2020 10:10 0 (specimen) AM EDT 10:23 AM EDT Resulting Agency Comment Spec In Lab Tyron Kemp MD CHEMISTRY ORDERABLES Performing Organization Address City/State/[place] [id number] (ABNORMAL) Basic Metabolic Panel (non-fasting) (02/08/2020 10:10 AM EDT) P athologist Signature Glucose Lvl 98 65 - 199 [facility] mg/dL [facility] Comment: Diabetes: >=200 mg/dL plus symp toms BUN 25 (H) 8 - 18 mg/dL [facility] Creatinine 2.40 (H) 0.70 - 1.20 mg/dL [facility] Sodium 139 135 - 145 mmol/L [facility] Potassium 4.1 3.5 - 5.0 mmol/L [facility] Comment: Please note: ??Patients with WBC >100,00 0 may have falsely elevated Potassium levels. ??For accurate Potassium quantif ication in these patients send serum separator tube (gold top) for subsequent determinations. ??Contact the Clinical Chemistry Laboratory if there are any qu estions. Chloride 102 98 - 107 mmol/L [facility] CO2 27 22 - 31 mmol/L [facility] Anion Gap 10 5 - 15 mmol/L [facility] Calcium 9.3 8.5 - 10.5 mg/dL [facility] Estimated GFR 20 (L) >=60 mL/min/1.73 m?? [facility] Comment: The eGFR was calculated using the CKD-EP I equation. As with all creatinine based estimates of kidney function, eGFR values calculated with the CKD-EPI equation are not accurate in patients wi th acute kidney failure, extremes of body mass or the acutely ill. [email or web address] eGFR 23 (L) >=60 mL/min/1.73 m?? [facility] Comment: The eGFR was calculated using the CKD-EP I equation. As with all creatinine based estimates of kidney function, eGFR values calculated with the CKD-EPI equation are not accurate in patients wi th acute kidney failure, extremes of body mass or the acutely ill. http://[email or web address] Specimen Anatomical Collection Method Collection Time Receive d Time (Source) Location / / Volume Laterality Blood specimen 02/08/2020 10:10 0 (specimen) AM EDT 10:23 AM EDT Resulting Agency Comment Spec In Lab Tyron Kemp MD CHEMISTRY ORDERABLES Performing Organization Address City/State/ZIP Code Phon e Number [place] [phone] documented in this encounter Visit Diagnoses Diagnosis CKD (chronic kidney disease) stage 4, GF R 15-29 ml/min Chronic kidney disease, Stage IV (severe ) documented in this encounter Care Teams Tram Operator Relationship Specialty Start Date End Date Sanjuanita Lee MD PCP - General 03/05/13 12/23/[address] [place] [address] documented as of this encounter
--- OUTSIDE RECORDS SUMMARY | 2022-02-22 23:30 | XMS_ITS | Encounter Summary ---
:1950 Author Organization [facility] [place] [address] Care Team Providers Name Role Phone Sanjuanita Lee MD Primary Care Provider Encounter Details Date Type Department Care Team Description 12/01/2019 Orders Only Solid Organ Transpla nt at [facility] Cate Reynolds, [place] [address] Social History Tobacco Use Types Packs/Day [...] on filedocumented in this encounter Care Teams Courtesy Booth Cashier Relationship Specialty Start Date End Date Sanjuanita Lee MD PCP - General 03/05/13 12/23/[address] [place] [address] documented as of this encounter
--- OUTSIDE RECORDS SUMMARY | 2022-02-22 23:30 | XMS_ITS | Encounter Summary ---
:1950 Author Organization [facility] [place] [address] Care Team Providers Name Role Phone Sanjuanita Lee MD Primary Care Provider Encounter Details Date Type Department Care Team Description 11/21/2019 TH Visit Solid Organ Transplant Pre-k renukaney transplant, (TeleHealth) at [facility] [place] [address] Social History Tobacco Use Types Packs/Day [...] documented as of this encounter Progress Notes Karolyn Barrientos MSW - 11/21/2019 11:00 AM EDT Worker spoke to Charlene via the phone instead of in person for their 6 month follow up due to COVID-19. Mental Status: States she is doing fine and denies symptoms of depression or anxiety. Coping with COVID:Our situation has not really changed with COVID. Financial: No changes since their last visit. Denies, saying their bills are up to date and they canafford their medications. Supports: Her Rodolfo and her children Keven and Mary. Donors: Yes, her son Keven. Advanced Directives: Yes on file which lists her Rodolfo Harmon as her DPOA followed by her daughter Mary Harmon as her alternate. Substance Use: Denies. She quit smoking and has about 5 glasses of wine a year. Transportation: Yes, both Charlene and Rodolfo drive and have vehicles. Coping Skills: Watching TV and playing scrabble. Assessment: There continues to be no barriers to having Charlene remain on the wait list for a kidney transplant. documented in this encounter Plan of Treatment Scheduled Procedures Name Priority Associated Diagnoses Date/Time EGD, UPPER GI ENDOSCOPY Gastroesophageal reflux disease, esophagitis presence not specifi ed documented as of this encounter Visit Diagnoses Diagnosis Pre-kidney transplant, listed documented in this encounter Care Teams Video Engineer Relationship Specialty Start Date End Date Sanjuanita Lee MD PCP - General 03/05/13 12/23/[address] [place] [address] documented as of this encounter
--- OUTSIDE RECORDS SUMMARY | 2022-02-22 23:30 | XMS_ITS | Encounter Summary ---
:1950 Author Organization [facility] [place] [address] Care Team Providers Name Role Phone Sanjuanita Lee MD Primary Care Provider Encounter Details Date Type Department Care Team Description 10/17/2019 Hospital Encounter Pulmonology at [facility] Stage 5 chronic kidney disea se; [facility] Pre-trans plant evaluation [place] [address] Social History Tobacco Use Types Packs/Day [...] Sig Dispensed Refills Start Date End Date furosemide (Lasix) 20 mg Take 20 mg by mouth 0 Tablet 2 times daily. Takes at 0800 and 1600 gabapentin (NEURONTIN) Take 300 mg by mouth 0 100 mg Capsule nightly. atorvastatin (LIPITOR) 20 Take [...] by mouth 0 Delayed Release (E.C.) daily. melatonin 5 mg Tablet Take by mouth. 0 06/04/2021 amLODIPine (NORVASC) 5 mg Take 1 tablet by 90 tablet 1 02/2612/22/2019 TabletIndications: mouth daily. Uncontrolled hypertension famotidine (PEPCID) 20 mg Take 20 mg by mouth 0 11/25/2019 Tablet 2 times daily. isosorbide dinitrate Take 1 tablet by 90 tablet 11 9 01/06/2020 (ISORDIL) 20 mg Tablet mouth 3 times daily. levothyroxine (SYNTHROID) Take 1 tablet by 30 tablet 11 12/2701/06/2020 75 mcg Tablet mouth daily. carvedilol (COREG) 12.5 Take 1 tablet by 60 tablet 11 201801/06/2020 mg Tablet mouth 2 times daily (with meals). hydrALAZINE (APRESOLINE) Take 1 tablet by 90 tablet 01/2001/06/2020 25 mg Tablet mouth 3 times daily. documented as of this encounter Procedure Notes Ida Palmer MD - 10/17/2019 3:34 PM EDTAssociated Order(s): PULMONARY FUNCTION TEST Pulmonary Function Test Interpretation FEV1 is normal. FVC is normal. The FEV1/FVC ratio is low normal. Diffusion capacity is low. Resting oxyhemoglobin saturation was normal. Impression: The study shows Isolated diffusion abnormality( i.e. Normal spirometry with low DLco), which can be seen in anemia, early lung diseases( such as emphysema or ILD), pulmonary vascular disorder, heart failure and other varieties of disorder. Clinical correlation is recommended. Ida Palmer MD documented in this encounter Plan of Treatment Scheduled Procedures Name Priority Associated Diagnoses Date/Time EGD, UPPER GI ENDOSCOPY Gastroesophageal reflux disease, esophagitis presence not specifi ed documented as of this encounter Procedures Procedure Name Priority Date/Time Associated Diagnosis Comme nts PULMONARY FUNCTION Routine 10/17/2019 3:34 PM Stage 5 chronic Results for this TEST EDT kidney disease procedure are in Pre-transplant the results evaluation for section. kidney transplant documented in this encounter Results Pulmonary Function Testing (10/17/2019 3:34 PM EDT) Narrative Ida Palmer MD - 10/17/2019 3:34 PM ED T Ida Palmer MD ? 10/19/2019 ??3:43 PM Pulmonary Function Test Interpretation FEV1 is normal. ??FVC is normal. ??The F EV1/FVC ratio is low normal. Diffusion capacity is low. Resting oxyhemoglobin saturation was nor mal. Impression: The study shows Isolated dif fusion abnormality( i.e. Normal spirometry with low DLco), which can be seen in anemia, early lung diseases( such as emphysema o r ILD), ??pulmonary vascular disorder, heart failure and oth er varieties of disorder. ??Clinical correlation is recommended. ?? Ida Palmer MD Brent Salinas MD PFT ORDERABLES documented in this encounter Visit Diagnoses Diagnosis Stage 5 chronic kidney disease Pre-transplant evaluation for kidney tra nsplant Other specified pre-operative examinatio n documented in this encounter Care Teams High School Vice Principal Relationship Specialty Start Date End Date Sanjuanita Lee MD PCP - General 03/05/13 12/23/[address] [place] [address] documented as of this encounter
--- OUTSIDE RECORDS SUMMARY | 2022-02-22 23:30 | XMS_ITS | Encounter Summary ---
:1950 Author Organization [facility] [place] [address] Care Team Providers Name Role Phone Sanjuanita Lee MD Primary Care Provider Encounter Details Date Type Department Care Team Description 04/24/2020 Ancillary Procedure [place] [address] Social History Tobacco Use Types Packs/Day [...] Name Priority Date/Time Associated Diagnosis Comme nts REQUEST FOR STAT 04/24/2020 8:01 PM Result s for this READ CT CHEST EST procedure are in ABDOMEN PELVIS the results section. documented in this encounter Results Request For Read CT Chest Abdomen Pelvis (04/24/2020 8:01 PM EST) Anatomical Region Laterality Modality Chest, Abdomen, Pelvis SO Specimen (Source) Anatomical Location Collection Method / Collectio n Time Received Time / Laterality Volume Impressions 04/24/2020 9:13 PM EST 1. ??No focal consolidation, pleural effusion or pneumothorax. 2. ??Nonobstructing renal calculus in th e midpole left kidney measuring 2 to [...] please contact lyn number below. ? Narrative 04/24/2020 9:13 PM [...] For questions regarding this report, please contact [facility] number below. Amy Ballesteros MD IMG OUTSIDE INTERPRETATION O RDERABLES documented in this encounter Visit Diagnoses Not on filedocumented in this encounter Care Teams Lithoduplicator Operator Relationship Specialty Start Date End Date Sanjuanita Lee MD PCP - General 03/05/13 12/23/21 [address] [place] [address] documented as of this encounter
--- OUTSIDE RECORDS SUMMARY | 2022-02-22 23:30 | XMS_ITS | Encounter Summary ---
:1950 Author Organization [place] [place] [address] Care Team Providers Name Role Phone Sanjuanita Lee MD Primary Care Provider Reason for Visit Reason Comments Follow-up Encounter Details Date Type Department Care Team Description 04/18/2020 Office Visit Vascular Surgery at [place], [place] Makenzie dominal aortic aneurysm (AAA) without rupture; [facility] Renal artery stenosis, [place]; [facility] Sta ge 5 chronic kidney disease; Amaris RUFF Bilateral carotid artery disease, unspec ified type [place], [place] V[facility] [address] [place] [address] [phone] Social History Tobacco Use Types Packs/Day Years [...] Sign Reading Time Taken Comments Blood Pressure 148/79 04/18/2020 10:16 AM EST Pulse 64 04/18/2020 10:16 AM EST Temperature - - Respiratory Rate - - Oxygen Saturation 94% 04/18/2020 10:16 AM EST Inhaled Oxygen Concentration - - Weight 45.4 kg (100 lb) 04/18/2020 10:16 AM EST Height 152.4 cm (5') 04/18/2020 10:16 AM EST Body Mass Index 19.53 04/18/2020 10:16 AM EST documented in this encounter Progress Notes Isac [facility] MD - 04/18/2020 10:30 AM EST The patient is status post a [...] stenosis (66 cm/sec and 70 cm/sec). The [place] distal renal artery is patent with no evidence of hemodynamically significant stenosis. ?? Patent intraparenchymal arteries with normal arterial flow. No identifiable change when compared to the previous exam. ?? Interpretation: ?? Patent infrarenal abdominal aortic aneurysm containing soft plaque/thrombus with a maximum diameter of 4.0 x 5.2 cm at the mid segment. ?? The??proximal aorta measurement has increased significantly compared to previous exam (3.0 x 3.2 cm; 10/05/2019). ?? Patent common iliac arteries with elevated velocities consistent with >50% stenosis. No evidence of OTIS aneurysm. ? Impression and plan ?? Renal artery duplex today reveals patient iliac to renal artery bypass graft with elevated velocities in the iliac artery inflow. Her AAA has increased substantially over last 6 months . Plan for non-con CTA to assess. RTC after CT scan. documented in this encounter Plan of Treatment Scheduled Procedures Name Priority Associated Diagnoses Date/Time EGD, UPPER GI ENDOSCOPY Gastroesophageal reflux disease, esophagitis presence not specifi ed documented as of this encounter Visit Diagnoses Diagnosis Abdominal aortic aneurysm (AAA) without rupture Renal artery stenosis, [place] Atherosclerosis of renal artery Stage 5 chronic kidney disease Bilateral carotid artery disease, unspec ified type documented in this encounter Care Teams Blow Molder Relationship Specialty Start Date End Date Sanjuanita Lee MD PCP - General 03/05/13 12/23/[address] [place] [address] documented as of this encounter
--- OUTSIDE RECORDS SUMMARY | 2022-02-22 23:30 | XMS_ITS | Encounter Summary ---
:1950 Author Organization [facility] [place] [address] Care Team Providers Name Role Phone Sanjuanita Lee MD Primary Care Provider Encounter Details Date Type Department Care Team Description 10/18/2019 Notes Only Solid Organ Transplant at [facility], Brent Sandoval MD [facility] Jennifer [place] [address] [place] [address] [phone] (Wo rk) Social History Tobacco Use Types [...] documented as of this encounter Progress Notes Daily, Brent Sandoval MD - 10/18/2019 9:[address] 10/17/19 reviewed. Thoracoabdominal aortic aneurysm. This appears essentially stable since a Feb 2018 study (3.8cm thoracic and 4.8 cm abdominal). There is A great deal of calcium. The OTIS are involved, as in the R EIA. The left EIA appear preserved. There are several soft tissue densities adjacent to the aorta which are non-specific. They are new and deserve evaluation with contrast (CT if she is ESRD). The left appears adequate for transplant, the right was used for a renal artery bypass. Interestingly, she developed some toe pain after bypass Dr. 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 documented in this encounter Plan of Treatment Scheduled Procedures Name Priority Associated Diagnoses Date/Time EGD, UPPER GI ENDOSCOPY Gastroesophageal reflux disease, esophagitis presence not specifi ed documented as of this encounter Visit Diagnoses Not on filedocumented in this encounter Care Teams Business Analyst Sales Operations Relationship Specialty Start Date End Date Sanjuanita Lee MD PCP - General 03/05/13 12/23/[address] [place] [address] documented as of this encounter
--- OUTSIDE RECORDS SUMMARY | 2022-02-22 23:30 | XMS_ITS | Encounter Summary ---
:1950 Author Organization [facility] [place] [address] Care Team Providers Name Role Phone Sanjuanita Lee MD Primary Care Provider Reason for Visit Reason Onset Date Comments Medication Refill 03/29/2020 Encounter Details Date Type Department Care Team Description 03/29/2020 Refill Cardiology at [facility] Lavelle Feliz MD Medication Refill [facility] [place] [address] CARDIOLOGY DEPT. [phone] [place], [place] [address] (Wo rk) Social History Tobacco [...] this encounter Miscellaneous Notes Telephone Encounter - Jessa Arredondo RN - 03/29/2020 8:40 AM EST Received Faxed request from [facility] in [place], [place] on behalf of patient requestingrefill of carvedilol 12.5 mg one tablet twice daily, Isosorbide 20 mg one tablet TID and Xrxqvhecdfl37 mg one tablet TID. . Patient would like a prescription for 90 day supply with refills. Reviewed the office note from patient's 02/09/[address] Feliz. Rx prepared as requested and forwarded to provider for their approval. Jessa Arredondo RN, BSN Ambulatory Cardiology Department documented in this encounter Plan of Treatment Scheduled Procedures Name Priority Associated Diagnoses Date/Time EGD, UPPER GI ENDOSCOPY Gastroesophageal reflux disease, esophagitis presence not specifi ed documented as of this encounter Visit Diagnoses Diagnosis Hypertensive urgency Unspecified essential hypertension Chest pain, unspecified type documented in this encounter Care Teams Railroad Firer Relationship Specialty Start Date End Date Sanjuanita Lee MD PCP - General 03/05/13 12/23/[address] [place] [address] documented as of this encounter
--- OUTSIDE RECORDS SUMMARY | 2022-02-22 23:30 | XMS_ITS | Encounter Summary ---
:1950 Author Organization [facility] [place] [address] Care Team Providers Name Role Phone Sanjuanita Lee MD Primary Care Provider Encounter Details Date Type Department Care Team Description 11/25/2019 Office Visit Solid Organ Transplant Ilana Rivera e-transplant evaluation for kidney transplant; at [facility] Stage 5 [place] [address] Social History Tobacco Use Types Packs/Day [...] documented as of this encounter Progress Notes Ilana Rivera RN - 11/25/2019 12:30 PM EDT I met with Charlene Story for final education prior to being added to the kidney transplant wait list. Outstanding testing: HLA labs We discussed wait list expectations including but not limited to: 1. Clinic visits every 6 months 2. Pager - testing number and changing batteries monthly 3. Monthly blood sample - between the and of each month 4. Temporary inactive status 5. Contacting the department with changes in health, contact information or insurance 6. Staying up to date on healthcare maintenance items (yearly physical, flu shot, mammogram, Pap Smear) 7. Yearly transplant testing (EKG,CXR, labs, etc.) Once we have confirmed and reviewed all of the required testing, Charlene Harmon will be discussed at the team committee review meeting, if approved by the team she will be added to the kidney transplant wait list. I will contact her to confirm the team decision. Charlene Harmon was given the opportunity to ask questions regarding the evaluation process and testing,being on the wait list, the transplant surgery, and initial follow up care. All questions were answered and I provided her with my contact information to follow up as needed. I spent 30 minutes providing direct education to the patient. documented in this encounter Plan of Treatment Scheduled Procedures Name Priority Associated Diagnoses Date/Time EGD, UPPER GI ENDOSCOPY Gastroesophageal reflux disease, esophagitis presence not specifi ed documented as of this encounter Results Transplant: Blood draw kit request (11/25/2019 4:02 PM EDT) [facility] gist Method Time Signature TXP BLD Draw Sample in [facility] Req lab. [facility] Specimen Anatomical Collection Method Collection Time Receive d Time (Source) Location / / Volume Laterality Blood specimen 11/25/2019 4:02 PM 020 (specimen) EDT 11:24 AM EDT Resulting Agency Comment Spec In Lab Brent Sandoval Daily CHEMISTRY ORDERABLES Performing Organization Address City/State/[place] [address] documented in this encounter Visit Diagnoses Diagnosis Pre-transplant evaluation for kidney tra nsplant Other specified pre-operative examinatio n Stage 5 chronic kidney disease documented in this encounter Care Teams Screening Specialist Relationship Specialty Start Date End Date Sanjuanita Lee MD PCP - General 03/05/13 12/23/21 [address] [place] [address] documented as of this encounter
--- OUTSIDE RECORDS SUMMARY | 2022-02-22 23:30 | XMS_ITS | Encounter Summary ---
:1950 Author Organization [facility] [place] [address] Care Team Providers Name Role Phone Sanjuanita Lee MD Primary Care Provider Encounter Details Date Type Department Care Team Description 11/25/2019 Office Visit [facility] Transplant [place] [facility] [place], [place] [facility] [place] [address] Social History Tobacco Use Types Packs/Day [...] encounter Progress Notes Karolyn Barrientos MSW - 11/25/2019 2:00 PM EDT Worker did not see Charlene during this visit as she did not have any needs and worker spoke to her earlier this week. documented in this encounter Plan of Treatment Scheduled Procedures Name Priority Associated Diagnoses Date/Time EGD, UPPER GI ENDOSCOPY Gastroesophageal reflux disease, esophagitis presence not specifi ed documented as of this encounter Visit Diagnoses Diagnosis Pre-kidney transplant, listed Pre-transplant evaluation for kidney tra nsplant Other specified pre-operative examinatio n documented in this encounter Care Teams Radiology Physician Relationship Specialty Start Date End Date Sanjuanita Lee MD PCP - General 03/05/13 12/23/[address] [place] [address] documented as of this encounter
--- OUTSIDE RECORDS SUMMARY | 2022-02-22 23:30 | XMS_ITS | Encounter Summary ---
:1950 Author Organization [facility] [address] Care Team Providers Name Role Phone Sanjuanita Lee MD Primary Care Provider Encounter Details Date Type Department Care Team Description 12/01/2019 External Results Solid Organ Transplant Julio Salinas, at [facility] [place] D [facility] [place] [address] [address] TRANSPLANT SURGERY [phone] [place], [place] [address] (Wo rk) Social History Tobacco [...] Date/Time Associated Diagnosis Comme nts [facility] AMB KIDNEY INITIAL - RECIPIENT Routine 12/01/2019 documented in this encounter Results Transplant: Kidney Initial (Recipient) - EXTERNAL collections (12/01/2019) Narrative This result has an attachment that is no t available. Brent Salinas MD CHEMISTRY ORDERABLES documented in this encounter Visit Diagnoses Not on filedocumented in this encounter Care Teams Geographic Area Intelligence Officer Relationship Specialty Start Date End Date Sanjuanita Lee MD PCP - General 03/05/13 12/23/[address] [place] [address] documented as of this encounter
--- OUTSIDE RECORDS SUMMARY | 2022-02-22 23:30 | XMS_ITS | Encounter Summary ---
:1950 Author Organization [facility] [place] [address] Care Team Providers Name Role Phone Sanjuanita Lee MD Primary Care Provider Encounter Details Date Type Department Care Team Description 12/01/2019 Telephone Solid Organ Transpla nt at [facility] Cate Reynolds, [place] [address] Social History Tobacco Use Types Packs/Day [...] this encounter Miscellaneous Notes Telephone Encounter - Cate Reynolds, RN - 12/01/2019 11:02 AM EDT Rec'd call from Charlene about committee decision. Indicated that we are not sure she is a candidate fortransplant based on her age and her comorbidities. Discussed with Dr. Salinas and we will loop back with [facility] early next week and figure out if there is any testing that can be done to determineability to tolerate salt and fluids. Will follow up with patient next week. documented in this encounter Plan of Treatment Scheduled Procedures Name Priority Associated Diagnoses Date/Time EGD, UPPER GI ENDOSCOPY Gastroesophageal reflux disease, esophagitis presence not specifi ed documented as of this encounter Visit Diagnoses Not on filedocumented in this encounter Care Teams One Piece Expansion Maker Hand Relationship Specialty Start Date End Date Sanjuanita Lee MD PCP - General 03/05/13 12/23/[address] [place] [address] documented as of this encounter
--- OUTSIDE RECORDS SUMMARY | 2022-02-22 23:30 | XMS_ITS | Encounter Summary ---
:1950 Author Organization [facility] [place] [address] Care Team Providers Name Role Phone Sanjuanita Lee MD Primary Care Provider Encounter Details Date Type Department Care Team Description 02/08/2020 Laboratory Appointment Lab 3L [facility] CKD ([facility] kidney [facility] disease) stage 4, GFR [facility] 15-29 ml/ [place] [id number] Social History Tobacco Use Types Packs/Day Years [...] Date/Time Associated Comments Diagnosis HC PROTEIN, Routine 02/08/2020 10:22 CKD (chronic kidney Resu lts for this QUANTITATIVE, URINE AM EDT disease) stage 4, pro cedure are in GFR 15-29 ml/min the results section. HC PARATHYROID Routine 02/08/2020 10:10 CKD (chronic kidney Re sults for this HORMONE(PTH INTACT AM EDT disease) stage 4, proc edure are in GFR 15-29 ml/min the results section. HEMOGRAM Routine 02/08/2020 10:10 CKD (chronic kidney Resu lts for this AM EDT disease) stage 4, procedure are in GFR 15-29 ml/min the results section. DIFFERENTIAL, Routine 02/08/2020 10:10 CKD (chronic kidney Res ults for this AUTOMATED AM EDT disease) stage 4, procedure are in GFR 15-29 ml/min the results section. HC CBC,PLT & AUTO Routine 02/08/2020 10:10 CKD (chronic kidney DIFF AM EDT disease) stage 4, GFR 15-29 ml/min HC URIC ACID, SERUM Routine 02/08/2020 10:10 CKD (chronic kidn ey Results for this AM EDT disease) stage 4, procedure are in GFR 15-29 ml/min the results section. HC PHOSPHORUS, SERUM Routine 02/08/2020 10:10 CKD (chronic kid liza Results for this AM EDT disease) stage 4, procedure are in GFR 15-29 ml/min the results section. HC ALBUMIN, SERUM Routine 02/08/2020 10:10 CKD (chronic kidney Results for this AM EDT disease) stage 4, procedure are in GFR 15-29 ml/min the results section. BASIC METABOLIC PANEL Routine 02/08/2020 10:10 CKD (chronic ki dney Results for this (NON-FASTING) AM EDT disease) stage 4, procedure are in GFR 15-29 ml/min the results section. documented in this encounter Results (ABNORMAL) Protein/Creatinine Ratio, urine (02/08/2020 10:22 AM EDT) P athologist Signature U Creatinine 34 mg/dL [facility] U Protein Ran 16 (H) 0 - 12 [facility] mg/dL [facility] Prot/Cre Ratio 0.[address] [facility] Specimen Anatomical Collection Method Collection Time Receive d Time (Source) Location / / Volume Laterality Urine specimen 02/08/2020 10:22 0 (specimen) AM EDT 10:27 AM EDT Resulting Agency Comment Spec In Lab Tyron Kemp MD URINE ORDERABLES Performing Organization Address City/State/[place] [address] (ABNORMAL) Differential, Automated (02/08/2020 10:10 AM EDT) [facility] Method Time Signature Neutrophils % 60.2 % [facility] Neutr Abs (ANC) 5.44 1.70 - [facility] 6.10 [facility] x10(3)/[facility] LABORATORY Lymphocytes % 19.2 % [facility] Lymphocytes Abs 1.7 0.9 - 3.2 [facility] x10(3)/[facility] LABORATORY Monocytes % 12.7 % [facility] Monocyte Abs 1.2 (H) 0.3 - 0.9 [facility] x10(3)/[facility] LABORATORY Eosinophils % 6.7 % [facility] Eosinophils Abs 0.6 (H) 0.0 - 0.4 [facility] x10(3)/[facility] LABORATORY Basophils % 1.0 % [facility] Basophils Abs 0.1 0.0 - 0.1 [facility] x10(3)/[facility] LABORATORY Immature Gran % 0.20 % [facility] Comment: Immature granulocytes(IG's)percentage an d absolute count will include metamyelocytes, myelocytes, and promyelo cytes. Blood smears from CBCs yielding IG's will be scanned manually for concor dance. If this scan disagrees with the automated IG or if promyelocytes are not ed, a manual differential will be performed. Blanca Gran Abs 0.02 0.00 - 0.04 x10(3)/[facility] Y [facility] LABORATORY Specimen Anatomical Collection Method Collection Time Receive d Time (Source) Location / / Volume Laterality Blood specimen 02/08/2020 10:10 0 (specimen) AM EDT 10:23 AM EDT Resulting Agency Comment Spec In Lab Tyron Kemp MD HEMATOLOGY ORDERABLES Performing Organization Address City/State/[place] [address] (ABNORMAL) Hemogram (02/08/2020 10:10 AM EDT) Analysis Performed At Patho logist Time Signature WBC 9.0 4.0 - 9.5 [facility] x10(3)/[facility] LABORATORY RBC 4.35 4.00 - [facility] 5.21 [facility] x10(6)/[facility] LABORATORY Hemoglobin 13.1 11.7 - [facility] 15.5 gm/dL [facility] Hematocrit 39.9 35.7 - [facility] 45.8 % [facility] MCV 91.7 82.6 - [facility] VICENTE 94.4 [facility] LABORATORY MCH 30.1 27.1 - [facility] 32.0 pg [facility] MCHC 32.8 31.7 - [facility] 35.0 gm/dL [facility] Platelets 296 145 - 357 [facility] x10(3[facility] LABORATORY RDWSD 46.2 (H) 37.0 - [facility] 46.0 [facility] LABORATORY RDWCV 13.6 11.5 - [facility] 14.1 % [facility] MPV 9.8 7.6 - 12.9 [facility] nRBC % Auto 0.0 % [facility] nRBC Abs Auto 0.000 0.000 - [facility] VICENTE 0.000 [facility] x10(3)/[facility] LABORATORY Specimen Anatomical Collection Method Collection Time Receive d Time (Source) Location / / Volume Laterality Blood specimen 02/08/2020 10:10 0 (specimen) AM EDT 10:23 AM EDT Resulting Agency Comment Spec In Lab Tyron Kemp MD HEMATOLOGY ORDERABLES Performing Organization Address City/State/[place] [address] (ABNORMAL) Basic Metabolic Panel (non-fasting) (02/08/2020 10:10 AM EDT) P athologist Signature Glucose Lvl 98 65 - 199 [facility] mg/dL [facility] Comment: Diabetes: >=200 mg/dL plus symp toms BUN 25 (H) 8 - 18 mg/dL [facility] Creatinine 2.40 (H) 0.70 - 1.20 mg/dL [facility] Sodium 139 135 - 145 mmol/L [facility] Potassium 4.1 3.5 - 5.0 mmol/L [facility] Comment: Please note: ??Patients with WBC >100,00 0 may have falsely elevated Potassium levels. ??For accurate Potassium quantif ication in these patients send serum separator tube (gold top) for subsequent determinations. ??Contact the Clinical Chemistry Laboratory if there are any qu estions. Chloride 102 98 - 107 mmol/L [facility] CO2 27 22 - 31 mmol/L [facility] Anion Gap 10 5 - 15 mmol/L [facility] Calcium 9.3 8.5 - 10.5 mg/dL [facility] Estimated GFR 20 (L) >=60 mL/min/1.73 m?? [facility] Comment: The eGFR was calculated using the CKD-EP I equation. As with all creatinine based estimates of kidney function, eGFR values calculated with the CKD-EPI equation are not accurate in patients wi th acute kidney failure, extremes of body mass or the acutely ill. [email or web address]/[facility] eGFR 23 (L) >=60 mL/min/1.73 m?? [facility] Comment: The eGFR was calculated using the CKD-EP I equation. As with all creatinine based estimates of kidney function, eGFR values calculated with the CKD-EPI equation are not accurate in patients wi th acute kidney failure, extremes of body mass or the acutely ill. http://[employer]/[facility]ON[facility]f Specimen Anatomical Collection Method Collection Time Receive d Time (Source) Location / / Volume Laterality Blood specimen 02/08/2020 10:10 0 (specimen) AM EDT 10:23 AM EDT Resulting Agency Comment Spec In Lab Tyron Kemp MD CHEMISTRY ORDERABLES Performing Organization Address City/State/ZIP Code Phon e Number [address] Phosphorus (02/08/2020 10:10 AM EDT) P athologist Signature Phosphorus 3.3 2.5 - 4.5 [facility] mg/dL [facility] Specimen Anatomical Collection Method Collection Time Receive d Time (Source) Location / / Volume Laterality Blood specimen 02/08/2020 10:10 0 (specimen) AM EDT 10:23 AM EDT Resulting Agency Comment Spec In Lab Tyron Kemp MD CHEMISTRY ORDERABLES Performing Organization Address City/State/ZIP Code Phon e Number [address] Albumin Level (02/08/2020 10:10 AM EDT) P athologist Signature Albumin 4.0 3.2 - 5.2 [place] gm/dL [facility] Specimen Anatomical Collection Method Collection Time Receive d Time (Source) Location / / Volume Laterality Blood specimen 02/08/2020 10:10 0 (specimen) AM EDT 10:23 AM EDT Resulting Agency Comment Spec In Lab Tyron Kemp MD CHEMISTRY ORDERABLES Performing Organization Address City/State/ZIP Code Phon e Number [address] Uric acid (02/08/2020 10:10 AM EDT) P athologist Signature Uric Acid 6.0 2.5 - 6.5 [place] mg/dL [facility] Specimen Anatomical Collection Method Collection Time Receive d Time (Source) Location / / Volume Laterality Blood specimen 02/08/2020 10:10 0 (specimen) AM EDT 10:23 AM EDT Resulting Agency Comment Spec In Lab Tyron Kemp MD CHEMISTRY ORDERABLES Performing Organization Address City/State/ZIP Code Phon e Number [address] PTH (02/08/2020 10:10 AM EDT) P athologist Signature PTH 54 15 - 65 [place] pg/mL [facility] Specimen Anatomical Collection Method Collection Time Receive d Time (Source) Location / / Volume Laterality Blood specimen 02/08/2020 10:10 0 (specimen) AM EDT 10:23 AM EDT Resulting Agency Comment Spec In Lab Tyron Kemp MD CHEMISTRY ORDERABLES Performing Organization Address City/State/[place] [address] documented in this encounter Visit Diagnoses Diagnosis CKD (chronic kidney disease) stage 4, GF R 15-29 ml/min Chronic kidney disease, Stage IV (severe ) documented in this encounter Care Teams Landscaping Crew Leader Relationship Specialty Start Date End Date Sanjuanita Lee MD PCP - General 03/05/13 12/23/[address] [place] [address] documented as of this encounter
--- OUTSIDE RECORDS SUMMARY | 2022-02-22 23:30 | XMS_ITS | Encounter Summary ---
:1950 Author Organization [facility] [place] [address] Care Team Providers Name Role Phone Sanjuanita Lee MD Primary Care Provider Encounter Details Date Type Department Care Team Description 11/25/2019 Office Visit Solid Organ Transplant at [place] [facility]-transplant [place] [facility] [place] [address] Social History Tobacco Use Types Packs/Day [...] documented as of this encounter Progress Notes Kit Brandon RPH - 11/25/2019 2:45 PM EDT Encounter Date: November 25, 2019 Ms. Charlene Harmon is a 69 y.o. female seen for a medication review as part of her kidney transplant work-up. S: Met with patient and her to review current medications and discuss post-transplant medications. I followed up with Ms. Harmon regarding concerns over sodium-containing intravenous products (refer to last visit with pharmacist (05/18/2019) for reference). As per our inpatient admixture and standard concentration references, I was able to confirm that most pre-transplant intravenous medications can be compounded using an alternate diluent form sodium chloride. Please refer to the following list for medications that can be built in eDH using an alternate diluent: Medication Alternate Diluent Anti-thymocyte globulin rabbit (THYMOGLOBULIN) May be diluted in dextrose 5% Basiliximab (SIMULECT) May be diluted in dextrose 5% Ganciclovir (CYTOVENE) May be diluted in dextrose 5% Cefazolin (ANCEF) Already premixed in dextrose 5% Methylprednisolone (SOLU-MEDROL) Doses greater than 250 mg are diluted; doses <250 mg are given via IV push May be diluted in dextrose 5% NOTE: if the aforementioned medications are to be utilized prior to transplantation, the orders MUSTbe signed and held by the transplant pharmacist (at a minimum of) 48 hours prior to transplant, to allow for appropriate eDH manipulation, build, and communication with the sterile-compounding area. Completed the Morisky 8 Item Adherence Questionaire to better better quantify the patient's probability to maintain compliance with a post kidney transplant drug regimen. Ms. Charlene Harmon scored 5 of 8 predicting low adherence (was marked medium adherence at last visit in April) The Morisky scale hasbeen validated in the post transplant population. Yes = 0 points, No = 1 point Score 1 - Do you sometimes forget to take your medicine? Yes = 0 Ms. Harmon states that she occasionally forgets to take her medications (especially her 1 pm and 4 pm). She states that she does not keep her phone with her constantly, which may cause her to miss her mid-day medications since she will be [id number] and not near her phone to hear her alarm. Ms. Harmon does state that she already uses pillboxes (has 3 different pillboxes) to split up her AM, midday, and PM medications. She also keeps a list of medications and their designated times with her. 2 - People sometimes miss taking their medicines for reasons other than forgetting. Thinking over the past 2 weeks, were there any days when you did not take your medicine? No = 1 Ms. Harmon states that her and daughter are sources of support and remind her to take her medications daily. 3 - Have you ever cut back or stopped taking your medicine without telling your doctor because you felt worse when you took it? No = 1 4 - When you travel or leave home, do you sometimes forget to bring along your medicine? No = 1 5 - Did you take all your medicines yesterday? (reverse scoring) Yes = 1 6 - When you feel like your symptoms are under control, do you sometimes stop taking your medicine? No = 1 7 - Taking medicine every day is a real inconvenience for some people. Do you ever feel hassled about sticking to your treatment plan? Yes = 0 Ms. Harmon states that she has a routine, but does feel hassled by the potential for multiple medications to be added on board. 8 - How often do you have difficulty remembering to take all your medicine? __ A. Never/rarely A = 1 __ B. Once in a while B - E = 0 __ C. Sometimes __ D. Usually __ E. All the time B= 0 Scores: <6 = low adherence, 6-7 = medium adherence, 8 = high adherence Moriclarita DE, Gregg BAIRD, Rios DM. Concurrent and predictive validity of a self- reported measure of medication adherence. Med Care. 1986;24:67-74. How often or do you run out of one or more of your prescription medications before getting a new refill? No issues noted How often or do you have difficulty affording your prescription medications? No issues noted To help determine your narcotic needs at time of transplant, are you currently taking or have recently taken any medications for pain? No narcotics noted If yes, record medications used, approximate length of therapy and any issues with pain control Patient's self-reporting of controlled drug use is consistent with PDMP search conducted by pharmacist. Allergies: Patient has no known allergies. Current Medications: Medication Sig Comments ??? cimetidine (TAGAMET) 400 mg Tablet Take 400 mg by mouth 2 times daily. ??? melatonin 5 mg Tablet Take by mouth. ??? furosemide (Lasix) 20 mg Tablet Take 20 mg by mouth 2 times daily. Takes at 0800 and 1600 ??? amLODIPine (NORVASC) 5 mg Tablet Take 1 tablet by mouth daily. (Patient taking differently: Take10 mg by mouth daily.) Increased to 10 mg daily ??? isosorbide dinitrate (ISORDIL) 20 mg Tablet Take 1 tablet by mouth 3 times daily. ??? levothyroxine (SYNTHROID) 75 mcg Tablet Take 1 tablet by mouth daily. ??? carvedilol (COREG) 12.5 mg Tablet Take 1 tablet by mouth 2 times daily (with meals). ??? hydrALAZINE (APRESOLINE) 25 mg Tablet Take 1 tablet by mouth 3 times daily. ??? gabapentin (NEURONTIN) 100 mg Capsule Take 100 mg by mouth nightly. ??? atorvastatin (LIPITOR) 20 mg Tablet Take 1 tablet by mouth every evening. ??? cloNIDine (CATAPRES) 0.1 mg Tablet Take 1 tablet by mouth every 8 hours as needed (Please take 1tablet, if systolic blood pressure is >200). Used as PRN, but has not needed to use it in 6+ months ??? acetaminophen (TYLENOL) 500 mg Tablet Take 1 tablet by mouth every 6 hours. ??? aspirin 81 mg Tablet, Delayed Release (E.C.) Take 81 mg by mouth daily. No current Epic-ordered facility-administered medications on file. Continued conern for IV medications with saline Assessment/plan: 1. There are no medication contraindications noted to proceed with transplant surgery. 2. Ms. Charlene Harmon was ranked low adherence to her medication regimen based on the Morisky 8 Item Adherence scale. 3. The need for termite renewal inspector medication and potential adjustment of medications post-transplant were discussed. A handout reviewing potential transplant medication side effects, dosing and pertinent issues was supplied as a reference. 4. Patient was provided with handout reviewing post-transplant discharge medication costs. 5. Will remain available for any medication questions KIT BRANDON RPH Pager #[phone] documented in this encounter Plan of Treatment Scheduled Procedures Name Priority Associated Diagnoses Date/Time EGD, UPPER GI ENDOSCOPY Gastroesophageal reflux disease, esophagitis presence not specifi ed documented as of this encounter Visit Diagnoses Diagnosis Pre-transplant evaluation for kidney tra nsplant Other specified pre-operative examinatio n documented in this encounter Care Teams Learning Development Specialist Relationship Specialty Start Date End Date Sanjuanita Lee MD PCP - General 03/05/13 12/23/[address] [place] [address] documented as of this encounter
--- OUTSIDE RECORDS SUMMARY | 2022-02-22 23:30 | XMS_ITS | Encounter Summary ---
:1950 Author Organization [facility] [place] [address] Care Team Providers Name Role Phone Sanjuanita Lee MD Primary Care Provider Reason for Visit Reason Onset Date Comments Medication Refill 12/22/2019 Encounter Details Date Type Department Care Team Description 12/22/[address] [facility] Lavelle Feliz MD Medication Refill [facility] [place] [address] CARDIOLOGY DEPT. [phone] [place], [place] [address] (Wo rk) Social History Tobacco [...] Telephone Encounter - Jessa Arredondo RN - 12/22/2019 9:47 PM EDT Received Faxed request from [facility] [place] on behalf of patient requesting refill of amlodipine 5 mg daily . Patient would like a prescription for 90 day supply with refills. Reviewed the office note from patient's 06/21/[address] Feliz Rx prepared as requested and forwarded to provider for their approval. Jessa Arredondo RN, BSN Ambulatory Cardiology Department documented in this encounter Plan of Treatment Scheduled Procedures Name Priority Associated Diagnoses Date/Time EGD, UPPER GI ENDOSCOPY Gastroesophageal reflux disease, esophagitis presence not specifi ed documented as of this encounter Visit Diagnoses Diagnosis Uncontrolled hypertension Unspecified essential hypertension documented in this encounter Care Teams Oil Distributor Relationship Specialty Start Date End Date Sanjuanita Lee MD PCP - General 03/05/13 12/23/[address] [place] [address] documented as of this encounter
--- OUTSIDE RECORDS SUMMARY | 2022-02-22 23:30 | XMS_ITS | Encounter Summary ---
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 [...] stenosis (66 cm/sec and 70 cm/sec). The samish distal renal artery is patent with no [...] Component Value Ref Test Analysis Performed At [facility] Range Method Time Signature VB Text Department: Vascular Surgery Lab VASCUBASE Report Patient: [id number] (CHARLENE HARMON) CPT: 83674 ICD10: I71.4 Referring Physician: UNIQUE BRAVO ?? [...] Component Value Ref Test Analysis Performed At [facility] Range Method Time Signature VB Text Department: Vascular Surgery Lab VASCUBASE Report Patient: [id number] (CHARLENE HARMON) CPT: 59515 ICD10: I65.23;I77.9 Referring Physician: UNIQUE BRAVO ?? [...] documented in this encounter Visit Diagnoses Diagnosis Renal artery stenosis, samish Atherosclerosis of renal artery Abdominal aortic aneurysm (AAA) without rupture Bilateral carotid artery disease, unspec ified type documented in this encounter Care Teams Jersey Knitter Relationship Specialty Start Date End Date Sanjuanita Lee MD PCP - General 03/05/13 12/23/[address] [place] [address] documented as of this encounter
--- OUTSIDE RECORDS SUMMARY | 2022-02-22 23:30 | XMS_ITS | Encounter Summary ---
:1950 Author Organization [facility] [place] [address] Care Team Providers Name Role Phone Sanjuanita Lee MD Primary Care Provider Reason for Visit Reason Onset Date Comments Medication Refill 01/06/2020 Encounter Details Date Type Department Care Team Description 01/06/2020 Refill Cardiology at [place] Renee Hayward, [place] [address] Social History Tobacco Use Types Packs/Day [...] on filedocumented in this encounter Care Teams Pump Erector Relationship Specialty Start Date End Date Sanjuanita Lee MD PCP - General 03/05/13 12/23/[address] [place] [address] documented as of this encounter
--- OUTSIDE RECORDS SUMMARY | 2022-02-22 23:30 | XMS_ITS | Encounter Summary ---
:1950 Author Organization [facility] [place] [address] Care Team Providers Name Role Phone Sanjuanita Lee MD Primary Care Provider Encounter Details Date Type Department Care Team Description 11/25/2019 Office Visit Solid Organ Daily, Brent Sandoval, Pre-transp lant evaluation for kidney transplant; Transplant at [facility] Stage 5 chronic kidney disease Formerly [facility], later [facility] [address] [place] TRANSPL[place] [id number] [place] [address] [phone] Social History Tobacco Use Types Packs/Day Years [...] Progress Notes Daily, Brent Sandoval MD - 11/25/2019 1:30 PM EDT Follow-up Preoperative Evaluation: Kidney Transplantation Date: 11/25/2019 Patient: Charlene Harmon Dear Dr. Kemp, Today I had the opportunity to meet Charlene Harmon, whom you had referred to me for evaluation for kidney transplant. She is Blood Type A Pos. As you are aware she is a 69 y.o. female with HTN, bilateral renal artery stenosis (bypassed on the right), cardiomyopathy, and CKD 4. Her Cr has improved somewhat since her bypass. Her thoracic and abdominal aortic aneurysm are stable. She developed toe pain, attributed to vascular disease, when she had her bypass (embolic or steal?). She is not on dialysis. She has not been admitted for pulmonary edema since January 2019. She remains fairly active. She has no problems with claudication. She wantedto make sure I knew that Dr. Moody was worried we might transplant her before she needed it. With regards to dialysis, her calculated GFR continues to rise from a low of 11 last fall, and to 22in September. She also wanted to make sure that I was aware that she will not consent to dialysis if I cannot guarantee it would be less then a couple of weeks. She has no other complaints at this time. Waiting time: days EPTS: 55 at 11/25/2019 1:23 PM Calculated from: Age: 69 years Does not have Diabetes No prior solid organ transplants Not on dialysis Past Medical History: CKD 4 HTN with bilateral renal artery stenosis (now bypassed on the right) Thoracic and abdominal aortic aneurysm, stable Systolic heart failure (now EF is almost 60, was 20) Flash pulmonary edema - frequent admissions last year. She was anxious about 1mL of saline in her cosyntropin test. PAD with mono and biphasic waveforms but no claudication. Her blue toe from last fall has resolved. Past Surgical History: Hysterectomy Right renal artery bypass from right iliac artery August 2018 FAMILY HISTORY: Family History Problem Relation Age of Onset ??? Hypertension Mother ??? Cervical Cancer Mother ??? Chronic Obstructive Pulmonary Disease Father ??? Hypertension Sister SOCIAL HISTORY: Social History Tobacco Use ??? Smoking status: Former Smoker Packs/day: 0.50 Years: 45.00 Pack years: 22.50 Types: Cigarettes Quit date: 2007 Years since quittin.5 ??? Smokeless tobacco: Never Used ??? Tobacco comment: smoked for ~45 years up to 1 ppd at [place], quit ~2000 Substance Use Topics ??? Alcohol use: Yes Comment: a few glasses of wine, rarely 4 times a year Allergies: Patient has no known allergies. Immunizations: Most Recent Immunizations Administered Date(s) Administered ??? Hepatitis A Vaccine, Adult 05/18/2015 ??? Influenza Vaccine, Unspecified Formulation 02/01/2019 ??? Pneumococcal Conjugate (13 Valent) 05/24/2019 ??? Pneumococcal Polyvalent 23 05/18/2015 ??? Td Vaccine, Absorbed, PF, Adult 05/20/2011 ??? Zoster, Recombinant 06/08/2019 Current Meds: ??? melatonin 5 mg Tablet ??? furosemide (Lasix) 20 mg Tablet ??? amLODIPine (NORVASC) 5 mg Tablet ??? famotidine (PEPCID) 20 mg Tablet ??? isosorbide dinitrate (ISORDIL) 20 mg Tablet ??? levothyroxine (SYNTHROID) 75 mcg Tablet ??? carvedilol (COREG) 12.5 mg Tablet ??? hydrALAZINE (APRESOLINE) 25 mg Tablet ??? gabapentin (NEURONTIN) 100 mg Capsule ??? atorvastatin (LIPITOR) 20 mg Tablet ??? cloNIDine (CATAPRES) 0.1 mg Tablet ??? acetaminophen (TYLENOL) 500 mg Tablet ??? aspirin 81 mg Tablet, Delayed Release (E.C.) ROS: A 10 point review of systems was reviewed with the patient with the following pertinent findings: Specifically, the patient denies weight gain or weight loss, fevers or chills. No vision changes. Nocough or sore throat. No chest pain or palpitations. No orthopnea. Some dyspnea on exertion. Normal appetite. No reflux. No changes in bowel or bladder habits. No dysuria or hematuria. Gradual onset ofmuscle weakness. No new skin lesions or rashes. No numbness or tingling. Physical Exam: No data found. Wt & BMI By Encounter Date Office Visit from 11/25/2019 in Solid Organ Transplant at [facility] Office Visit from 10/17/2019 in Solid Organ Transplant at [facility] Weight 44.5 kg (98 lb 3.2 oz) 1 11/25/2019 1233 43.6 kg (96 lb 3.2 oz) 1 10/17/2019 1345 General: comfortable. In no apparent distress. Bronzed. Appears stated age. EYES: EOMI. ENMT: Teeth are unremarkable NECK: Supple. No adenopathy. No thyromegaly. COR: regular rate and rhythm. PULM: Breathing comfortably Abdomen: Scaphoid. No organomegaly. Vascular: femoral pulses faint, Pedal pulses faint, radial pulses palpable Lower extremity with no edema. MUSCULOSKELTAL: strength > 5/5 and symmetrical, gait unremarkable. SKIN: without obvious lesion / rash. Nails unremarkable. Assessment: Ms. Charlene Harmon is a 69 y.o. female with stage IV CKD, hypertension, and vascular disease. She has athoracic and abdominal aortic aneurysm which is stable. She has renal artery stenosis which is been managed with the right iliac to right renal artery bypass graft and improving kidney function. She has diarrhea which she is managing with as needed cholestyramine. She has a recent history of systolic heart failure, with several admissions last year for flash pulmonary edema . She is unwilling to goon dialysis. I think she is very high risk for transplant. Her right iliacs are essentially unavailable because of the bypass. Her left iliacs have atherosclerosis. Her toe pressures on the left are even lower thanher toe pressures on the right. It is unclear why her ejection fraction was as low as the 20s last year, nor why it is back up in the high 50s this year. Her poor volume tolerance is letter to be fearful of saline, to the point where we had to talk her into a 1 mL injection of cosyntropin. Cardiac: Echo - The left ventricular chamber size is normal. There is normal global left ventricular systolic function with 3D EF of 59%, GLS= - 14% (GE E95), and no wall motion abnormalities. No valve abnormalities. RVSP not estimated, but 44/21 on RHC(01/04). Vascular: CT 10/17/19 - Thoracoabdominal aortic aneurysm. This appears essentially stable since a study (3.8cm thoracic and 4.8 cm abdominal). There is a great deal of calcium. The OTIS are [...] atheroembolism r/t iliac artery clamping (be careful). BEVERLY (10/14) are Bi- to mono-phasic in the 0.7 range. TBI 0.4 on L. The cholestyramine she is taking for diarrhea will complicate our ability to maintain therapeutic drug levels. Urologic: Unnecessary Fortunately, her estimated GFR continues to rise after her bypass. It is my hope that this trend will continue, and that she will never need a renal transplant. If she does, a donor transplantwould be difficult because of her surgical complexity and the increased risk of delayed graft function and a donor, in the face of someone who is unwilling to go on dialysis. Fortunately, she also has a son who is in interested living donor, and we may need to pursue this if her kidney function starts to deteriorate again. Once again, I spent some time reviewing the risks benefits and alternatives to renal transplantation. I specifically addressed surgical risks as well as the general risks of immunosuppression (including new onset diabetes after transplant). We talked about delayed graft function, and how graft survival is related to her overall health and adherence as well as the health of the donor. We also discussed different types of donors and the advantages of living donors. All of her questions have been answered. Thank you for sending us this patient to return for putting your yanira in the [facility] transplant center. We will be discussing her case in our multidisciplinary kidney transplant evaluationcommittee where I will recommend she not be listed for transplant. If she does begin to progress to ESRD in the next several years, we would need to reassess our ability to transplant her, and her son is a donor. We would also need to discuss with her CODE STATUS and willingness for dialysis. Please do not hesitate to contact me if you have any questions. The number rings directly to my office. Sincerely, Brent Cheatham. MS, FACS Chief of Solid Organ Transplant [facility] documented in this encounter Plan of Treatment Scheduled Procedures Name Priority Associated Diagnoses Date/Time EGD, UPPER GI ENDOSCOPY Gastroesophageal reflux disease, esophagitis presence not specifi ed documented as of this encounter Procedures Procedure Name Priority Date/Time Associated Diagnosis Comme nts HC SPECIMEN Routine 11/25/2019 4:02 PM Pre-transplant Results for this HANDLING SIMPLE EDT evaluation for procedure are in CLINICAL kidney transplan t the results Stage 5 chronic section. kidney disease documented in this encounter Results Transplant: Blood draw kit request (11/25/2019 4:02 PM EDT) [facility] gist Method Time Signature TXP BLD Draw Sample in [facility] Req lab. [facility] Specimen Anatomical Collection Method Collection Time Receive d Time (Source) Location / / Volume Laterality Blood specimen 11/25/2019 4:02 PM 020 (specimen) EDT 11:24 AM EDT Resulting Agency Comment Spec In Lab Brent Sandoval Daily CHEMISTRY ORDERABLES Performing Organization Address City/State/[place] [address] documented in this encounter Visit Diagnoses Diagnosis Pre-transplant evaluation for kidney tra nsplant Other specified pre-operative examinatio n Stage 5 chronic kidney disease documented in this encounter Care Teams Tester Electronic Scale Relationship Specialty Start Date End Date Sanjuanita Lee MD PCP - General 03/05/13 12/23/[address] [place] [address] documented as of this encounter
--- OUTSIDE RECORDS SUMMARY | 2022-02-22 23:30 | XMS_ITS | Encounter Summary ---
:1950 Author Organization [place] [place] [address] Care Team Providers Name Role Phone Sanjuanita Lee MD Primary Care Provider Encounter Details Date Type Department Care Team Description 10/17/2019 Office Visit [place] [address] Social History Tobacco Use Types Packs/Day [...] documented as of this encounter Progress Notes Lee Whalen, LANI - 10/17/2019 1:30 PM EDT This is a TeleHealth Nutrition Visit. Patient is located at her home. The current time is 12:30 p.m. Patient verbalized consent to the telephone visit for nutrition assessment. Call ended time is: 12:40 p.m. September 26, 2019 Charlene Harmon [id number] TRANSPLANT NUTRITION To be evaluated for Wait List: initial assessment performed 03/2019. Charlene Harmon was re-evaluated by nutrition services on September 26, 2019 as part of an evaluation for kidney transplant wait list. Kidney Failure due to uncontrolled HTN. Appetite: no change Denies N/V/C Diarrhea: patient reports taking Cholestyaran, recommended by her PCP, when diarrhea occurs. She takes it for 2-3 days until she has a formed stool which lasts about 4 days, then she takes it again. Has had Chronic diarrhea since last February, denies this corresponding to any changes or weight loss. No MVI supplement. Diabetic History: denies Dialysis History: none Food Record: B: Grapefruit juice: 8 ounce 11:00 tst w/ pb & j 1:00 sandwich: low-sodium bologna/ham with tomatoes and onion, velazquez [place] chips Tarik-aid 5:30 - 6:00 PM Chicken leg with potato salad 1 cup; Tarik aid No snack Medications/Vit/Min/Herbals of note: ??? furosemide (Lasix) 20 mg Tablet ??? [...] aspirin 81 mg Tablet, Delayed Release (E.C.) Anthropometrics: IBW:Estimated body mass index is 17.48 kg/m?? as calculated from the following: Height as of 07/01/19: 153.7 cm (5' 0.5). Weight as of 07/01/19: 41.3 kg (91 lb). 93# somedays. Recent Weight Change: none Weight goal: 100# Nutritional Concerns: 1) Patient is underweight for her age putting her at increased risk for malnutrition. Her weight goal is 100#; her pre-illness weight in 3854-7948 was 115#. For her height, 100# +/- 10% is her estimated [place] Body Weight. Discussed with patient starting to drink 1 can Nepro daily to provide 400 calories in a low-sodium supplement. Patient agreed I could e-mail her the information to order this. 2) patient's current p.o. intakes are insufficient in all vitamins and minerals. Patient is at increased risk for malnutrition due to low volume intakes of poor quality. These inadequacies could be metby supplementing with Nepro. Assessment/Plan: There are no nutritional contraindications noted to proceed with transplant surgery. E-mail patient ordering information for Nepro, salt-free spice blend info, and reminder to consider a b-complex withc MVI. Plan communicated to Transplant team via documentation in patient's medical record and at Multidisciplinary Team meeting. Remain available for questions/concerns. documented in this encounter Plan of Treatment Scheduled Procedures Name Priority Associated Diagnoses Date/Time EGD, UPPER GI ENDOSCOPY Gastroesophageal reflux disease, esophagitis presence not specifi ed documented as of this encounter Visit Diagnoses Diagnosis Nutritional counseling documented in this encounter Care Teams Benzene Washer Relationship Specialty Start Date End Date Sanjuanita Lee MD PCP - General 03/05/13 12/23/[address] [place] [address] documented as of this encounter
--- OUTSIDE RECORDS SUMMARY | 2022-02-22 23:30 | XMS_ITS | Encounter Summary ---
:1950 Author Organization [facility] [place] [address] Care Team Providers Name Role Phone Sanjuanita Lee MD Primary Care Provider Encounter Details Date Type Department Care Team Description 10/19/2019 Notes Only Solid Organ Transplant at [address] [place] [address] [place] [id number] Social History Tobacco Use Types Packs/Day [...] as of this encounter Progress Notes Lee Whalen RD - 10/19/2019 12:26 PM EDT Phoned patient to inform her that I am e-mailing her information from [employer] regarding a discount on Nepro. Due to Charlene's low body weight and desire to re-gain 10 to 15# lost last during her illness, I encouraged her to consume one can/day for an additional 440 kcals, low in K and Na. Left her a voicemail as there was no answer on her home phone. documented in this encounter Plan of Treatment Scheduled Procedures Name Priority Associated Diagnoses Date/Time EGD, UPPER GI ENDOSCOPY Gastroesophageal reflux disease, esophagitis presence not specifi ed documented as of this encounter Visit Diagnoses Not on filedocumented in this encounter Care Teams Crate Tier Relationship Specialty Start Date End Date Sanjuanita Lee MD PCP - General 03/05/13 12/23/[address] [place] [address] documented as of this encounter
--- OUTSIDE RECORDS SUMMARY | 2022-02-22 23:30 | XMS_ITS | Encounter Summary ---
:1950 Author Organization [place] [address] Care Team Providers Name Role Phone Sanjuanita Lee MD Primary Care Provider Encounter Details Date Type Department Care Team Description 12/21/2019 Orders Only Cardiology at [facility] [place], Acute on chronic [facility] Rafiq [place] [id number] Social History Tobacco Use Types Packs/Day Years [...] this encounter Miscellaneous Notes Addendum Note - Rafiq Whitaker RN - 12/21/2019 12:10 PM EDT Addended by: RAFIQ WHITAKER on: 12/28/2019 10:12 AM Modules accepted: Orders documented in this encounter Plan of Treatment Scheduled Procedures Name Priority Associated Diagnoses Date/Time EGD, UPPER GI ENDOSCOPY Gastroesophageal reflux disease, esophagitis presence not specifi ed documented as of this encounter Visit Diagnoses Diagnosis Acute on chronic systolic heart failure documented in this encounter Care Teams Computer Equipment Repairer Relationship Specialty Start Date End Date Sanjuanita Lee MD PCP - General 03/05/13 12/23/[address] [place] [address] documented as of this encounter
--- OUTSIDE RECORDS SUMMARY | 2022-02-22 23:30 | XMS_ITS | Encounter Summary ---
:1950 Author Organization [facility] [place] [address] Care Team Providers Name Role Phone Sanjuanita Lee MD Primary Care Provider Reason for Visit Consultation (Routine) - Specialty Diagnoses / Procedures Referred By Contact Refer red To Contact Cardiology Diagnoses Primary hypertension PHTN, Pre-renal transplant. ?Right heart cath *SCANNED DOCS Daily, MD Tray Morin Salvatore P, MD [facility] D R [facility] [place] [address] [place] [address] Fax: Referral ID Status Reason Start Date Expiration Date Visits V isits Requested Authorized [id number] 12/01/2019 11/30/2020 1 1 Encounter Details Date Type Department Care Team Description 02/09/2020 Office Visit Cardiology at [facility] Lavelle Feliz, Cardiomyopathy, [facility] [place] [address] CARDIOLOGY DEPT. [phone] [place], [place] [address] (Wo rk) Social History Tobacco [...] Sign Reading Time Taken Comments Blood Pressure 122/64 02/09/2020 8:09 AM EDT Pulse 77 02/09/2020 8:09 AM EDT Temperature - - Respiratory Rate 15 02/09/2020 8:09 AM EDT Oxygen Saturation 98% 02/09/2020 8:09 AM EDT Inhaled Oxygen Concentration - - Weight 45.5 kg (100 lb 3.2 oz) 02/09/2020 8:09 AM EDT Height 152.4 cm (5') 02/09/2020 8:09 AM EDT Body Mass Index 19.57 02/09/2020 8:09 AM EDT documented in this encounter Progress Notes Lavelle Feliz MD - 02/09/2020 8:20 AM EDT Images from the original note were not included. [facility] [place] [address] [place] [address] CARDIOLOGY/ VASCULAR OUTPATIENT NOTE Charlene Lee MD TELEHEALTH VISIT : 68 year old female with CKD stage IV (previously stage V) secondary to HTN (history of YNIG not amenable to stenting, s/p renal artery bypass in August 2018) who is seeking a kidney transplant. She is not on dialysis but is hoping to go direct to transplant (no AVF or port). Her son is a potential donor. He lives in [place]. ?? Her cardiac history is significant for multiple admissions over the past 18 months for flash pulmonary edema. Her Cr has been as high as 4 and her LVEF was as low as 20-25% in December of 2018 (on echo). BUN was around 77 at that time. This was most likely a nonischemic cardiomyopathy, possibly related to uremia - because a nuclear perfusion study at that time demonstrated no perfusion abnormalitiesat rest or stress and the updated echo obtained today demonstrates an LVEF of 59% with no WMA. Her most recent BUN/Cr are 31/2.3. ?? She has been clinically stable with no significant volume overload for at least 3 months (since her hospitalization in Jan 2019). She remains on daily low dose lasix. Weight is stable with no signs or symptoms of CHF. ?? Her current cardiac regimen includes: -ASA, BB (coreg 12.5 bid), no ABBY but is on isosorbide/hydralazine (20 mg tid, 25 mg tid respectively), low dose statin (atorva 20), amlodipine 5, clonidine prn for SBP > 200. ?? She is very careful with a low salt diet. ?? No changes needed to her medical regimen at this time. ?? Discussed cardiac update with the renal transplant team. ?? Follow-up: -she will continue to be seen by Dr. oHrner at [facility], but I will see her as well until she undergoes kidney transplant q 6-12 months. Next appointment with me in clinic in 6 months or prn. ? SUBJECTIVE: Patient lives in [facility] with her . She has been trying to walk up to 2 miles per day. She denies any significant shortness of breath or chest pain. She can walk up a flight of stairs without stopping. She does plenty of housework and is up and down the stairs during the day without symptoms. She has not been in the hospital in over 6 months. She remains off dialysis. She states that she is not planning to do dialysis when needed. She says this would Not be a quality of life for her. She does not have an AVF or port. Most recent Cr 2.4. Meds: Current Outpatient Medications Medication Sig Dispense Refill ??? hydrALAZINE (Apresoline) [...] (E.C.) Take 81 mg by mouth daily. Patient Vitals for the past 24 hrs: Pulse Resp BP SpO2 02/09/20 0809 77 15 122/64 98 % General: well developed, well nourished HEENT: PERRLA Neck: supple, JVP normal Lungs: clear to ascultation Cardiac: RRR, no murmurs, rubs or gallops Abdomen: nontender, nondistended Extremities: normal ROM, No edema. Neuro: alert and oriented x 3, normal muscle strength Skin: no new rashes ASSESSMENT / PLAN: 68 year old female with CKD stage IV (previously stage V) secondary to HTN (history of YING not amenable to stenting, s/p renal artery bypass in August 2018) with a history of a resolved nonischemic cardiomyopathy (LVEF as low as 20-25% at one time, but normalized by June 2019; ischemic work-up based on nuclear perfusion study; LVEF by echo). She had multiple admissions for pulmonary edema previously, but has not had any over the past 6 months. She is doing much better and appears quite stable. In fact, if one did not know that she had ESRD - she appears healthy and active. She has stated that she is planning to refuse dialysis when that timecomes and she has been turned down for kidney transplant at [facility], I believe based on vascular disease. We discussed that she may want to be evaluated at a larger volume transplant center who may be able to take on a case such as hers. Her cardiac history does not appear to be a barrier to transplant at this time. ?? -no changes needed at this time. Volume status stable. No edema. No SOB. -advised to seek 2nd opinion at large volume T[place] center -she will follow-up with Dr. Horner in [facility] (cardiology, closer to home). Lavelle Feliz MD, [facility] Cardiovascular Medicine [facility] Clinic scheduling: Charlotte Maharaj [phone] Clinic Team Nurse: Jessa Arredondo RN [phone] documented in this encounter Plan of Treatment Scheduled Procedures Name Priority Associated Diagnoses Date/Time EGD, UPPER GI ENDOSCOPY Gastroesophageal reflux disease, esophagitis presence not specifi ed documented as of this encounter Visit Diagnoses Diagnosis Cardiomyopathy, unspecified type documented in this encounter Care Teams Fitness Technician Relationship Specialty Start Date End Date Sanjuanita Lee MD PCP - General 03/05/13 12/23/[address] [place] [address] documented as of this encounter
--- OUTSIDE RECORDS SUMMARY | 2022-02-22 23:30 | XMS_ITS | Encounter Summary ---
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) stage 5, GFR less than 15 ml/min; Transplant at [facility] MD Shruthi Pre-transplant evaluation for CKD (chron ic kidney disease) [facility]ly [facility] [address] [place] [address] [place] [address] [phone] Social History Tobacco Use Types Packs/Day Years [...] Sign Reading Time Taken Comments Blood Pressure 168/72 11/25/2019 12:33 PM EDT Pulse 70 11/25/2019 12:33 PM EDT Temperature - - Respiratory Rate - - Oxygen Saturation - - Inhaled Oxygen Concentration - - Weight 44.5 kg (98 lb 3.2 oz) 11/25/2019 12:33 PM EDT Height - - Body Mass Index 19.18 10/05/2019 11:26 AM EDT documented in this encounter Progress Notes Brent Salinas MD - 11/25/2019 1:00 PM EDT Transplant Medicine Ongoing Evaluation ?? Date: 11/25/2019 Patient: Charlene Harmon Organ Type: Kidney ?? History of Present Illness: Ms. Charlene Harmon is an 69 y.o. White Not nor female with past medical history of CRF secondary to HYPERTENSIVE NEPHROSCLEROSIS. Patient referred by Dr Kemp. Ms. Charlene Harm[facility] for ongoing evaluation as a potential renal transplant recipient.Patient start date for dialysis and number of days is (Not currently on dialysis). The dialysis center the patient received their treatment from is: (Not currently on dialysis). ?? Reason for referral: Ongoing Evaluation for Kidney Transplantation. Interim Hx: She returned with her . 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 She is walking constantly and feels much better. Her exercise tolerance has gotten better and one wonders whether she has improved her CO, circulation and interestingly her kidney function. She has an estimated GFR which exceeds 20 cc/min now and is not eligible for a graft at this time. I told her we'd have to discuss her case in committee but I am wondering if we should do provocativetesting in the echo or earthmoving labourer to determine if her flash pulmonary edema associated with perfusing saline would jeopardize her cardiac status; she very well could have stiff ventricles,pulmonary hypertension or a combination of both. ?? He/she previously attended our 90 min multi disciplinary educational session in which we covered every aspect of transplantation including but not limited to: ?? Comparison to dialysis Types of transplanted kidney organs: DDKtx, LRD and LURDKTx; DCD, DBD, etc. Wait list KDPI/EPTS Wait list management Active vs. Status 7/Inactive Risks - rejection, CV, malignancies, infections, bone and mineral metabolism Benefits - longevity Outcomes -local vs. SRTR data; rates of tx and type, wait list mortality, graft failure and patient mortality Programmatic specialities Medications and their side effects Evaluation and listing CMS/UNOS governmental regulations Surgery Complications Hospital stay Discharge and follow up Recipient expectations Transplant Infectious Disease Risk Assessment ?? Patient Active Problem List Diagnosis Code ??? [...] renal failure, stage 4 (severe) N18.4, D63.1 S/p severe tobacco abuse S/p systolic CHF with pleural effusions ?? Past Medical History: Diagnosis Date ??? AAA (abdominal aortic aneurysm) ? [id number] angiogram; 3.2 cm infrarenal ??? Constipation ? Dyslipidemia ? Hypertension ? Insomnia ? Peripheral vascular disease ? Renal artery stenosis ? R; per 2009 angiogram [id number] all vaginal deliveries ?? Past Surgical History: Procedure Laterality Date ??? HYSTERECTOMY ? PRO CATHETER 1ST ORDER W/WO ART PUNCT/FLUORO/S&I BILATERAL Bilateral 09/01/2018 ?? SELECT CATH PLACE (FIRST-ORDER), MAIN RENAL ART & ANY ACC, W/S&I; ANDREY (WRVU 6.99) performed by Regan Chen MD at [facility] MAIN OR ??? PRO UPPER GI ENDOSCOPY, DIAGNOSTIC ?? 01/20/2014 ?? EGD, UPPER GI ENDOSCOPY performed by Corby Cano MD at [facility] ENDOSCOPY ??? PRO UPPER GI ENDOSCOPY, DIAGNOSTIC N/A 07/28/2017 ?? EGD, UPPER GI ENDOSCOPY performed by Snow Liao MD at [facility] ENDOSCOPY ??? PRO VEIN BYPASS GRAFT, AORTOILIOFEMORAL N/A 09/07/2018 ?? @BYPASS GRAFT, AORTOILIAC W\ VEIN CONDUIT (WRVU 41.88) [facility] ? Family History Problem Relation Age of Onset ??? Hypertension Mother ? Cervical Cancer Mother ? Chronic Obstructive Pulmonary Disease Father ? Hypertension Sister ? 2 adult children son Stephen 50 yr, daughter Emanuel 48 yr Brother committed suicide, sister 80 yr healthy, Mother ovarian CA 68, father age 68 emphysema 3- grandchildren 22 yr old female, 16 yr old male, 13 yr old female ?? Social History: Social History ?? Tobacco Use ??? Smoking status: Former Smoker ? Packs/day: 0.50 ? Years: 45.00 ? Pack years: 22.50 ? Types: Cigarettes ? Last attempt to quit: 2007 ? Years since quittin.1 ??? Smokeless tobacco: Never Used ??? Tobacco comment: smoked for ~45 years up to 1 ppd at [place], quit ~2000 Substance Use Topics ??? Alcohol use: Yes ? Comment: a few glasses of wine, rarely 4 times a year , 48 yr Age 72 diabetes No pets, illicit drugs, tattoos, piercings sexual encounters ?? Maintenance Dialysis History Patient has no recorded history of maintenance dialysis. ?Diagnosis: CKD stage 5, due to hypertensive nephrosclerosis; improved renal function exceeding an estim. GFR of20 cc/min and thus not eligible for transplantation at this time ?? Current Meds: Current Outpatient Medications: ??? cimetidine (TAGAMET) 400 mg Tablet, Take 400 mg by mouth 2 times daily., Disp: , Rfl: ??? melatonin 5 mg Tablet, Take by mouth., Disp: , Rfl: ??? furosemide (Lasix) 20 mg Tablet, Take 20 mg by mouth 2 times daily. Takes at 0800 and 1600, Disp: , Rfl: ??? amLODIPine (NORVASC) 5 mg Tablet, Take 1 tablet by mouth daily. (Patient taking differently: Take 10 mg by mouth daily.), Disp: 90 tablet, Rfl: 1 ??? isosorbide dinitrate (ISORDIL) 20 mg Tablet, Take 1 tablet by mouth 3 times daily., Disp: 90 tablet, Rfl: 11 ??? levothyroxine (SYNTHROID) 75 mcg Tablet, Take 1 tablet by mouth daily., Disp: 30 tablet, Rfl: 11 ??? carvedilol (COREG) 12.5 mg Tablet, Take 1 tablet by mouth 2 times daily (with meals)., Disp: 60 tablet, Rfl: 11 ??? hydrALAZINE (APRESOLINE) 25 mg Tablet, Take 1 tablet by mouth 3 times daily., Disp: 90 tablet, Rfl: 11 ??? gabapentin (NEURONTIN) 100 mg Capsule, Take 100 mg by mouth nightly., Disp: , Rfl: ??? atorvastatin (LIPITOR) 20 mg Tablet, Take 1 tablet by mouth every evening., Disp: 90 tablet, Rfl: 3 ??? cloNIDine (CATAPRES) 0.1 mg Tablet, Take 1 tablet by mouth every 8 hours as needed (Please take 1 tablet, if systolic blood pressure is >200)., Disp: 30 tablet, Rfl: 3 ??? acetaminophen (TYLENOL) 500 mg Tablet, Take 1 tablet by mouth every 6 hours., Disp: 30 tablet, Rfl: 1 ??? aspirin 81 mg Tablet, Delayed Release (E.C.), Take 81 mg by mouth daily., Disp: , Rfl: Immunization History Administered Date(s) Administered ??? Hepatitis A Vaccine, Adult 04/07/2014, 12/08/2014, 05/18/2015 ??? Influenza Vaccine, Unspecified Formulation 02/01/2019 ??? Pneumococcal Conjugate (13 Valent) 05/24/2019 ??? Pneumococcal Polyvalent 23 05/18/2015 ??? Td Vaccine, Absorbed, PF, Adult 05/20/2011 ??? Zoster, Recombinant 06/08/2019, 11/25/2019 No Known Allergies ?? Physical Exam: Vitals Office Visit from 11/25/2019 in Solid Organ Transplant at [facility] Weight 44.5 kg (98 lb 3.2 oz) Heart Rate 70 BP 168/72 Constitutional: alert, ill appearing, but non-toxic, pale and well developed HENT: ENT exam normal, no neck nodes or sinus tenderness, throat normal without erythema or exudate and teeth and gums decent shape Head: Normocephalic, without obvious abnormality, atraumatic, sinuses nontender to percussion Eyes: conjunctivae/corneas clear. PERRL, EOM's intact. Fundi benign. Neck: supple, no adenopathy and thyroid normal in size, no nodules or tenderness Cardiovascular: CVS exam BP noted to be well controlled today in office, CVS exam - normal rate, regular rhythm, normal S1, S2, no murmurs, rubs, clicks or gallops, S3 present, normal bilateral carotidupstroke without bruits, incr S2, peripheral vascular exam both carotids normal upstroke without bruits, radial pulses normal, aorta not palpable, femoral artery pulse reduce left, venous stasis dermatitis without ulcerations, abnormal foot exam warm, good capillary refill, DP absent left and PT reduced left, neurological exam alert, oriented, normal speech, no focal findings or movement disorder noted, screening mental status exam normal, cranial nerves II through XII intact, DTR's normal and symmetric, motor and sensory grossly normal bilaterally Pulmonary/Chest: Normal chest wall and respirations. Clear to auscultation. Abdominal: soft, non-tender, without masses or organomegaly, high pitched bowel sounds, without guarding, without rebound, no masses palpated and without organomegaly Musculoskeletal: Spine ROM normal. Muscular strength intact. Neurological: See above no assymetries Skin: no active wounds Very small diminutive woman older than stated age ?? Assessment: Ms. Charlene Harmon is a high risk candidate for Kidney transplantation. See Interim Hx above. Advantages and disadvantages of transplantation were reviewed. Discussed the potential complications, particularly in regard to the medical complications that might occur after receiving a transplant. I addressed issues of follow-up care and the need for lifelong compliance with medical treatment plan. Lastly Idiscussed the need for immunosuppressive therapy and the risk associated with this treatment. ?? Functional Status: 70% Cares for self: unable to carry on normal activity or active work ?? Socioeconomic Status: Working for Income: No Primary Insurance: Payor: MEDICARE / Plan: MEDICARE PART A & B / Product Type: *No Product type*/ [place] Citizen: yes ?? Recommendations: I discussed with Ms. Charlene Harmon about her Kidney organ failure and the need for renal replacement therapy. We discussed the option of transplantation as well as the advantages of a living donor versusdeceased donor in regards to renal transplantation. ?? I surmise she appears to have fair understanding of her medical condition and the transplant process. ?? Discussion with the patient and/or family concerned the following: ? Diagnostic results or recommended studies ? Prognosis; ? Risks and benefits of management; ? Instructions for management; ? Compliance with treatment; ? Risk factor reduction; ? Patient and family education. Total time 25 of 30 min in direct face to face milieu counselor. BRENT SALINAS MD documented in this encounter Plan of Treatment Scheduled Procedures Name Priority Associated Diagnoses Date/Time EGD, UPPER GI ENDOSCOPY Gastroesophageal reflux disease, esophagitis presence not specifi ed documented as of this encounter Visit Diagnoses Diagnosis CKD (chronic kidney disease) stage 5, GF R less than 15 ml/min Chronic kidney disease, Stage V Pre-transplant evaluation for CKD (chron ic kidney disease) Other specified pre-operative examinatio n documented in this encounter Care Teams Unishear Operator Relationship Specialty Start Date End Date Sanjuanita Lee MD PCP - General 03/05/13 12/23/21 [address] [place] [address] documented as of this encounter
--- OUTSIDE RECORDS SUMMARY | 2022-02-22 23:30 | XMS_ITS | Encounter Summary ---
:1950 Author Organization [facility] [address] Care Team Providers Name Role Phone Sanjuanita Lee MD Primary Care Provider Encounter Details Date Type Department Care Team Description 10/17/2019 Laboratory Appointment Lab 3L [facility] Stage 5 chronic kidney disease; [facility] Pre-transplant evaluation fo r kidney transplant; [facility] CKD ([facility] milagro kidney disease) stage 4, GFR 15-29 ml/min; [facility] Renal artery stenosis, [place] [id number] Social History Tobacco Use Types Packs/Day Years [...] Priority Date/Time Associated Comments Diagnosis HEMOGRAM Routine 10/17/2019 12:47 CKD (chronic kidney Resu lts for this PM EDT disease) stage 4, procedure are in GFR 15-29 ml/min the results section. DIFFERENTIAL, Routine 10/17/2019 12:47 CKD (chronic kidney Res ults for this AUTOMATED PM EDT disease) stage 4, procedure are in GFR 15-29 ml/min the results section. HC CBC,PLT & AUTO Routine 10/17/2019 12:47 CKD (chronic kidney DIFF PM EDT disease) stage 4, GFR 15-29 ml/min HC PREALBUMIN, SERUM Routine 10/17/2019 12:47 Stage 5 chronic Results for this PM EDT kidney disease procedure are in Pre-transplant the results evaluation for section. kidney transplant HC PHOSPHORUS, SERUM Routine 10/17/2019 12:47 CKD (chronic kid liza Results for this PM EDT disease) stage 4, procedure are in GFR 15-29 ml/min the results section. HC VENIPUNCTURE Routine 10/17/2019 12:47 Stage 5 chronic Resul ts for this PM EDT kidney disease procedure are in Pre-transplant the results evaluation for section. kidney transplant BASIC METABOLIC PANEL Routine 10/17/2019 12:47 CKD (chronic ki dney Results for this (NON-FASTING) PM EDT disease) stage 4, procedure are in GFR 15-29 ml/min the results section. documented in this encounter Results (ABNORMAL) Differential, Automated (10/17/2019 12:47 PM EDT) [facility] gist Method Time Signature Neutrophils % 60.2 % [facility] Neutr Abs (ANC) 4.68 1.70 - [facility] 6.10 [facility] x10(3)/[facility] LABORATORY Lymphocytes % 18.1 % [facility] Lymphocytes Abs 1.4 0.9 - 3.2 [facility] x10(3)/[facility] LABORATORY Monocytes % 14.3 % [facility] Monocyte Abs 1.1 (H) 0.3 - 0.9 [facility] x10(3)/[facility] LABORATORY Eosinophils % 5.8 % [facility] Eosinophils Abs 0.4 0.0 - 0.4 [facility] x10(3)/[facility] LABORATORY Basophils % 1.3 % [facility] Basophils Abs 0.1 0.0 - 0.1 [facility] x10(3)/[facility] LABORATORY Immature Gran % 0.30 % [facility] Comment: Immature granulocytes(IG's)percentage an d absolute count will include metamyelocytes, myelocytes, and promyelo cytes. Blood smears from CBCs yielding IG's will be scanned manually for concor dance. If this scan disagrees with the automated IG or if promyelocytes are not ed, a manual differential will be performed. Blanca Gran Abs 0.02 0.00 - 0.04 x10(3)/[facility] Y [facility] Specimen Anatomical Collection Method Collection Time Receive d Time (Source) Location / / Volume Laterality Blood specimen 10/17/2019 12:47 0 1:22 (specimen) PM EDT PM EDT Resulting Agency Comment Spec In Lab Champ ENGLE HEMATOLOGY ORDERABLES Performing Organization Address City/State/[place] [address] Hemogram (10/17/2019 12:47 PM EDT) P athologist Signature WBC 7.8 4.0 - 9.5 [facility] x10(3)/[facility] LABORATORY RBC 4.44 4.00 - [facility] 5.21 [facility] x10(6)/[facility] LABORATORY Hemoglobin 13.3 11.7 - [facility] 15.[facility] gm/dL [facility] Hematocrit 40.5 35.7 - [facility] 45.8 % [facility] MCV 91.2 82.6 - [facility] 94.4 [facility] LABORATORY MCH 30.0 27.1 - [place] [facility] 32.0 pg [facility] MCHC 32.8 31.7 - [facility] 35.0 gm/dL [facility] Platelets 267 145 - 357 [facility] x10(3)/[facility] RDWSD 43.7 37.0 - [facility] VICENTE 46.0 [facility] LABORATORY RDWCV 13.2 11.5 - [place] 14.1 % [facility] MPV 10.5 7.6 - 12.9 [facility] LABORATORY nRBC % Auto 0.0 % [facility] nRBC Abs Auto 0.000 0.000 - [place] 0.000 [facility] x10(3)/[facility] LABORATORY Specimen Anatomical Collection Method Collection Time Receive d Time (Source) Location / / Volume Laterality Blood specimen 10/17/2019 12:47 0 1:22 (specimen) PM EDT PM EDT Resulting Agency Comment Spec In Lab Champ ACEVESBS HEMATOLOGY ORDERABLES Performing Organization Address City/State/ZIP Code Phon e Number [address] Phosphorus (10/17/2019 12:47 PM EDT) P athologist Signature Phosphorus 3.6 2.5 - 4.5 [facility] mg/dL [facility] Specimen Anatomical Collection Method Collection Time Receive d Time (Source) Location / / Volume Laterality Blood specimen 10/17/2019 12:47 0 1:22 (specimen) PM EDT PM EDT Resulting Agency Comment Spec In Lab Mainor Doyle MD CHEMISTRY ORDERABLES Performing Organization Address City/State/ZIP Code Phon e Number [address] (ABNORMAL) Basic Metabolic Panel (non-fasting) (10/17/2019 12:47 PM EDT) P athologist Signature Glucose Lvl 120 65 - 199 [facility] mg/dL [facility] Comment: Diabetes: >=200 mg/dL plus symp toms BUN 36 (H) 8 - 18 mg/dL [facility] Creatinine 2.22 (H) 0.70 - 1.20 mg/dL [facility] Sodium 139 135 - 145 mmol/L [facility] Potassium 3.4 (L) 3.5 - 5.0 mmol/L [facility] Comment: Please note: ??Patients with WBC >100,00 0 may have falsely elevated Potassium levels. ??For accurate Potassium quantif ication in these patients send serum separator tube (gold top) for subsequent determinations. ??Contact the Clinical Chemistry Laboratory if there are any qu estions. Chloride 99 98 - 107 mmol/L [facility] CO2 24 22 - 31 mmol/L [facility] Anion Gap 16 (H) 5 - 15 mmol/L [facility] Calcium 9.1 8.5 - 10.5 mg/dL [facility] Estimated GFR 22 (L) >=60 mL/min/1.73 m?? [facility] Comment: The eGFR was calculated using the CKD-EP I equation. As with all creatinine based estimates of kidney function, eGFR values calculated with the CKD-EPI equation are not accurate in patients wi th acute kidney failure, extremes of body mass or the acutely ill. [email or web address] Adskf eGFR 25 (L) >=60 mL/min/1.73 m?? [facility] Comment: The eGFR was calculated using the CKD-EP I equation. As with all creatinine based estimates of kidney function, eGFR values calculated with the CKD-EPI equation are not accurate in patients wi th acute kidney failure, extremes of body mass or the acutely ill. [email or web address] OK[facility] CITYnkf Specimen Anatomical Collection Method Collection Time Receive d Time (Source) Location / / Volume Laterality Blood specimen 10/17/2019 12:47 0 1:22 (specimen) PM EDT PM EDT Resulting Agency Comment Spec In Lab Mainor Doyle MD CHEMISTRY ORDERABLES Performing Organization Address City/State/ZIP Code Phon e Number [place] [phone] Prealbumin (10/17/2019 12:47 PM EDT) P athologist Signature Prealbumin 20 20 - 40 [facility] mg/dL [facility] Comment: Prealbumin levels are generally lower in the pediatric population; adult concentrations are usually attained near puberty. Specimen Anatomical Collection Method Collection Time Receive d Time (Source) Location / / Volume Laterality Blood specimen 10/17/2019 12:47 0 1:22 (specimen) PM EDT PM EDT Resulting Agency Comment Spec In Lab Brent Salinas MD CHEMISTRY ORDERABLES Performing Organization Address City/[facility]/[place] [address] Cortisol (10/17/2019 12:47 PM EDT) P athologist Signature Cortisol 11.1 mcg/dL [facility] Comment: Reference ranges: ??AM (6-10am): ??4.8-19.5 mcg/dL ??PM (4-8pm) : ??2.5-11.9 mcg/dL Specimen Anatomical Collection Method Collection Time Receive d Time (Source) Location / / Volume Laterality Blood specimen 10/17/2019 12:47 0 1:22 (specimen) PM EDT PM EDT Resulting Agency Comment Spec In Lab Brent Salinas MD CHEMISTRY ORDERABLES Performing Organization Address City/[facility]/[place] [address] documented in this encounter Visit Diagnoses Diagnosis Stage 5 chronic kidney disease Pre-transplant evaluation for kidney tra nsplant Other specified pre-operative examinatio n CKD (chronic kidney disease) stage 4, GF R 15-29 ml/min Chronic kidney disease, Stage IV (severe ) Renal artery stenosis, [place] Atherosclerosis of renal artery documented in this encounter Care Teams Disc Inspector Relationship Specialty Start Date End Date Sanjuanita Lee MD PCP - General 03/05/13 12/23/[address] [place] [address] documented as of this encounter
--- OUTSIDE RECORDS SUMMARY | 2022-02-22 23:31 | XMS_ITS | Encounter Summary ---
:1950 Author Organization [facility] [place] [address] Care Team Providers Name Role Phone Sanjuanita Lee MD Primary Care Provider Encounter Details Date Type Department Care Team Description 05/24/2019 Clinical Support Solid Organ Ilana Rivera Pre-mack splant Transplant at [facility] S, [place] [address] Social History Tobacco Use Types Packs/Day Years [...] encounter Progress Notes Ilana Rivera RN - 05/24/2019 3:15 PM EST I met with Charlene and her after her nephrology appointment. Her current GFR is 21. We discussed that the committee meets tomorrow and we will call with the next steps. Charlene had no questions at this time. documented in this encounter Plan of Treatment Scheduled Procedures Name Priority Associated Diagnoses Date/Time EGD, UPPER GI ENDOSCOPY Gastroesophageal reflux disease, esophagitis presence not specifi ed documented as of this encounter Visit Diagnoses Diagnosis Pre-transplant evaluation for kidney tra nsplant Other specified pre-operative examinatio n documented in this encounter Care Teams Nut Process Helper Relationship Specialty Start Date End Date Sanjuanita Lee MD PCP - General 03/05/13 12/23/[address] [place] [address] documented as of this encounter
--- OUTSIDE RECORDS SUMMARY | 2022-02-22 23:31 | XMS_ITS | Encounter Summary ---
:1950 Author Organization [facility] [address] Care Team Providers Name Role Phone Sanjuanita Lee MD Primary Care Provider Reason for Visit Reason Comments Medication Refill Encounter Details Date Type Department Care Team Description 03/17/2019 Refill Nephrology Hypertension at [place] [address] [place] [address] [phone] Social History Tobacco Use Types Packs/Day Years Used Date Former Smoker 0.5 Smokeless Tobacco: Never Used Comments: smoked for [...] on filedocumented in this encounter Care Teams Bluing Oven Tender Relationship Specialty Start Date End Date Sanjuanita Lee MD PCP - General 03/05/13 12/23/[address] [place] [address] documented as of this encounter
--- OUTSIDE RECORDS SUMMARY | 2022-02-22 23:31 | XMS_ITS | Encounter Summary ---
:1950 Author Organization [facility] [place] [address] Care Team Providers Name Role Phone Sanjuanita Lee MD Primary Care Provider Encounter Details Date Type Department Care Team Description 03/29/2019 Orders Only Nephrology Hypertension Rubén, CKD (chronic kidney at [facility] Velasquez disease) stage 5, GFR [facility] D rive less than 15 ml/[place] [address] Social History Tobacco Use Types Packs/Day [...] ed documented as of this encounter Results Gold Tube HOLD (03/29/2019 1:45 PM EST) athologist Signature Gold Hold [facility] Specimen Anatomical Collection Method Collection Time Receive d Time (Source) Location / / Volume Laterality Blood specimen 03/29/2019 1:45 PM 019 1:49 (specimen) EST PM EST Tyron Kemp MD CHEMISTRY ORDERABLES Performing Organization Address City/[facility]/ZIP Code Phon e Number [address] PTH (03/29/2019 1:45 PM EST) P athologist Signature PTH 42 15 - 65 [facility] pg/mL [facility] Specimen Anatomical Collection Method Collection Time Receive d Time (Source) Location / / Volume Laterality Blood specimen 03/29/2019 1:45 PM 019 1:49 (specimen) EST PM EST Resulting Agency Comment Spec In Lab Tyron Kemp MD CHEMISTRY ORDERABLES Performing Organization Address City/[facility] Code Phon e Number [address] (ABNORMAL) Uric acid (03/29/2019 1:45 PM EST) P athologist Signature Uric Acid 8.6 (H) 2.5 - 6.5 [facility] mg/dL [facility] Specimen Anatomical Collection Method Collection Time Receive d Time (Source) Location / / Volume Laterality Blood specimen 03/29/2019 1:45 PM 019 1:49 (specimen) EST PM EST Resulting Agency Comment Spec In Lab Tyron Kemp MD CHEMISTRY ORDERABLES Performing Organization Address City/[facility] Code Phon e Number [address] Albumin Level (03/29/2019 1:45 PM EST) P athologist Signature Albumin 3.9 3.2 - 5.2 [facility] gm/dL [facility] Specimen Anatomical Collection Method Collection Time Receive d Time (Source) Location / / Volume Laterality Blood specimen 03/29/2019 1:45 PM 019 1:49 (specimen) EST PM EST Resulting Agency Comment Spec In Lab Tyron Kemp MD CHEMISTRY ORDERABLES Performing Organization Address City/State/[place] [address] [facility] [address] Phosphorus (03/29/2019 1:45 PM EST) athologist Signature Phosphorus 3.7 2.5 - 4.5 [facility] mg/dL [facility] Specimen Anatomical Collection Method Collection Time Receive d Time (Source) Location / / Volume Laterality Blood specimen 03/29/2019 1:45 PM 019 1:49 (specimen) EST PM EST Resulting Agency Comment Spec In Lab yTron Kemp MD CHEMISTRY ORDERABLES Performing Organization Address City/State/ZIP Code Phon e Number [address] (ABNORMAL) Basic Metabolic Panel (non-fasting) (03/29/2019 1:45 PM EST) athologist Signature Glucose Lvl 75 65 - 199 [facility] mg/dL [facility] Comment: Diabetes: >=200 mg/dL plus symp toms BUN 38 (H) 8 - 18 mg/dL [facility] Creatinine 2.49 (H) 0.70 - 1.20 mg/dL [facility] Sodium 136 135 - 145 mmol/L [facility] Potassium 2.7 (Critical) 3.5 - 5.0 mmol/L [facility] Comment: Result rechecked. Called by: eloisa, Read back by: Angelique witt, Date/Time:03/29/19 14:32. Please note: ??Patients with WBC >100,00 0 may have falsely elevated Potassium levels. ??For accurate Potassium quantif ication in these patients send serum separator tube (gold top) for subsequent determinations. ??Contact the Clinical Chemistry Laboratory if there are any qu estions. Chloride 99 98 - 107 mmol/L [facility] CO2 21 (L) 22 - 31 mmol/L [facility] Anion Gap 16 (H) 5 - 15 mmol/L [facility] Calcium 9.0 8.5 - 10.5 mg/dL [facility] Estimated GFR 19 (L) >=60 mL/min/1.73 m?? [facility] Comment: The eGFR was calculated using the CKD-EP I equation. As with all creatinine based estimates of kidney function, eGFR values calculated with the CKD-EPI equation are not accurate in patients wi th acute kidney failure, extremes of body mass or the acutely ill. http://[employer]/[facility] eGFR 22 (L) >=60 mL/min/1.73 m?? [facility] Comment: The eGFR was calculated using the CKD-EP I equation. As with all creatinine based estimates of kidney function, eGFR values calculated with the CKD-EPI equation are not accurate in patients wi th acute kidney failure, extremes of body mass or the acutely ill. http://[employer]/[facility] Specimen Anatomical Collection Method Collection Time Receive d Time (Source) Location / / Volume Laterality Blood specimen 03/29/2019 1:45 PM 019 1:49 (specimen) EST PM EST Resulting Agency Comment Spec In Lab Tyron Kemp MD CHEMISTRY ORDERABLES Performing Organization Address City/State/ZIP Code Phon e Number [address] (ABNORMAL) Protein/Creatinine Ratio, urine (03/29/2019 1:40 PM EST) P athologist Signature U Creatinine 70 mg/dL [facility] U Protein Ran 94 (H) 0 - 12 [facility] mg/dL [facility] Prot/Cre Ratio 1.3 ratio [facility] Specimen Anatomical Collection Method Collection Time Receive d Time (Source) Location / / Volume Laterality Urine specimen 03/29/2019 1:40 PM 019 1:50 (specimen) EST PM EST Resulting Agency Comment Spec In Lab Tyron Kemp MD URINE ORDERABLES Performing Organization Address City/State/[place] [address] documented in this encounter Visit Diagnoses Diagnosis CKD (chronic kidney disease) stage 5, GF R less than 15 ml/min Chronic kidney disease, Stage V documented in this encounter Care Teams Inspector Process Relationship Specialty Start Date End Date Sanjuanita Lee MD PCP - General 03/05/13 12/23/[address] [place] [address] documented as of this encounter
--- OUTSIDE RECORDS SUMMARY | 2022-02-22 23:31 | XMS_ITS | Encounter Summary ---
:1950 Author Organization [facility] [place] [address] Care Team Providers Name Role Phone Sanjuanita Lee MD Primary Care Provider Encounter Details Date Type Department Care Team Description 07/01/2019 Telephone Pulmonology at [facility] Rupinder Vieira, [place] [address] Social History Tobacco Use Types Packs/Day [...] on filedocumented in this encounter Care Teams Scroll Machine Operator Relationship Specialty Start Date End Date Sanjuanita Lee MD PCP - General 03/05/13 12/23/21 [place] [address] documented as of this encounter
--- OUTSIDE RECORDS SUMMARY | 2022-02-22 23:31 | XMS_ITS | Encounter Summary ---
:1950 Author Organization [facility] [place] [address] Care Team Providers Name Role Phone Sanjuanita Lee MD Primary Care Provider Encounter Details Date Type Department Care Team Description 10/05/2019 Office Visit Vascular Surgery at [place], [place] Makenzie dominal aortic aneurysm (AAA) without rupture; [facility] [place]al artery stenosis [facility] [address] [place] [id number] [place] [address] [phone] Social History Tobacco Use Types Packs/Day Years [...] Sign Reading Time Taken Comments Blood Pressure 134/70 10/05/2019 11:26 AM EDT Pulse 59 10/05/2019 11:26 AM EDT Temperature - - Respiratory Rate - - Oxygen Saturation - - Inhaled Oxygen Concentration - - Weight 42.2 kg (93 lb) 10/05/2019 11:26 AM EDT reported Height 152.4 cm (5') 10/05/2019 11:26 AM EDT reported Body Mass Index 18.16 10/05/2019 11:26 AM EDT documented in this encounter Progress Notes Isac [place] MD - 10/05/2019 11:30 AM EDT The patient is status post a right renal artery bypass with vein on 09/07/2018. The bypass originates from the right iliac artery. This was performed for plaque flash pulmonary edema and elevated creatinine. Postoperatively the patient did well. Her blood pressure is under better control and she has had no further episodes of flash pulmonary edema. She was recently admitted to the hospital from 10/02/2018-10/07/2018 for syncope; since this admission, she has not had any recurrence of dizziness, lightheadedness, or SOB. She has been drinking approximately 2 L of fluids per day, and admits that fluid intake may not be exceeding fluid output. Her major complaint today is a painful R 4th toe for approximately one month. Pain is exacerbated by wearing tight shoes and gardening boots, so she has only been wearing sandals.Symptoms are affecting her life and prevent her from gardening. She is not using pain medication andpain is only relieved by standing on cold floors. States that R flank incision is well-healed. Labs: Creatinine today is 2..22, and has been elevated above 2.3 since 10/02/2018. This is in comparison to Cr 1.59-1.73 immediately after her bypass was performed on 09/07/2018. Renal Artery Duplex, Unil Interpretation: ?? RIGHT: Patent iliac to renal artery bypass graft with elevated velocities (PSV 248 cm/s) in the iliac artery inflow. No stenosis noted through the graft with a note of lower velocities in the mid and distal segments of the graft (PSV 34-46 cm/s). Patent renal vein. ?? Patent abdominal aorta with an infra-renal aneurysm measuring approximately 3.6 x 3.9 cm in diameter. Mural thrombus noted through the aneurysm sac. Impression and plan ?? Ms. Harmon's blood pressure has been well-controlled since her discharge from the hospital in September. Renal artery duplex today reveals patient iliac to renal artery bypass graft with elevated velocities in the iliac artery inflow. RTC 6 months for f/u duplex renal artery. 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 Advised patient to avoid ibuprofen for pain relief givenkidney issues, but recommended acetaminophen use as needed. Symptoms will likely resolve on their own in 3-4 months. In the office today her systolic blood pressure is around 152. She saw her freight dispatcher Dr. Gallo today. RTC 4 months for renal artery duplex and repeat Creatinine. I interviewed and examined patient. Agree with above note, She looks well. Creat is 2.7 . This has increased from postop baseline of 1.6. Her weight is stable. Her I/O are kept by . She typically is somewhat even to slightly negative each day. Encouraged her to maintain PO intake. RTC 6 months with studies. documented in this encounter Plan of Treatment Scheduled Procedures Name Priority Associated Diagnoses Date/Time EGD, UPPER GI ENDOSCOPY Gastroesophageal reflux disease, esophagitis presence not specifi ed documented as of this encounter Visit Diagnoses Diagnosis Abdominal aortic aneurysm (AAA) without rupture Renal artery stenosis Atherosclerosis of renal artery documented in this encounter Care Teams Skein Spooler Relationship Specialty Start Date End Date Sanjuanita Lee MD PCP - General 03/05/13 12/23/[address] [place] [address] documented as of this encounter
--- OUTSIDE RECORDS SUMMARY | 2022-02-22 23:31 | XMS_ITS | Encounter Summary ---
:1950 Author Organization [facility] [place] [address] Care Team Providers Name Role Phone Sanjuanita Lee MD Primary Care Provider Encounter Details Date Type Department Care Team Description 05/19/2019 Office Visit Solid Organ Transplant at [place] [facility] [place] [address] Social History Tobacco Use Types Packs/Day [...] encounter Progress Notes Karolyn Barrientos MSW - 05/19/2019 12:15 PM EST Psychosocial Assessment Charlene presents with her Rodolfo. Primary Medical Concerns: Patient Active Problem List Diagnosis Date Noted ??? Uncontrolled hypertension 01/09/2019 ??? Anemia of [...] 03/01/2018 ??? Viral hepatitis B acute 03/04/2013 Background History: Charlene grew up with her biological mom and her step dad, her older sister of 10 years,and her 81/2 year older brother. Charlene states that growing up she maintained a relationship with her biological father. Charlene said that she got along with her parents and her siblings. Charlene said that she mostly felt like an only child growing up due to her older siblings leaving the home must earlierthat she did. Charlene states she felt loved and supported growing up and she denies any sexual, emotional, or physical abuse as a child or as an adult. Charlene and Rodolfo have been for the past 50 1/2years. This is their first marriage for both and they do not have children from previous relationship s. Together they have 2 children, Keven age 50 and Mary, aged 48. They report that they have a good relationship with each other as well as their children. Highest level of education: Bachelor in Science, majoring in Education. [place] Citizen: Yes What Country do you reside in? [place] Employment: Charlene is retired. 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 Current Living Situation: Charlene lives with her Rodolfo in their own home with no mortgage and no pets. Their utilities are working. Their house is 2 levels with no steps to enter. Their bedroom dilan the second floor which has 13 steps. There is a bedroom and a bathroom on both floors and if needbe can stay downstairs while she recovers. Social/Emotional Supports (Informal and formal): Her Rodolfo, her son Keven, her daughter Mary, Faizan, and friends. Coping Skills: playing scrabble and watching TV. Spirituality: No Mental Health Concerns/treatment (current or prior): Denies, including therapy, medications, hospitalizations, suicide attempts, suicidal or homicidal ideation, self harm behavior, or auditory and visual hallucinations. History of Substance Abuse: Charlene states that she started smoking cigarettes when she was a senior inhigh school and the most she smoked was 1/2 pack a day, but it was not steadily. She quit for the last time in 1999. Charlene states that she has never tried any drugs. Charlene reports that she has about 5 glasses of wine a year, if that. Insurance Coverage (medical and prescription): Medicare A & B and [facility]. She has prescription coverage. Financial Status: Both Charlene and her are retired and denied any financial concerns. Their bills are up to date and they can afford their medications. Advanced Directives: Yes, on file which lists Rodolfo Harmon as her DPOA followed by her daughter Mary Harmon as her alternate DPOA. Charlene said that she would like to add Keven to the document but when lisa would need to complete a whole new form, she declined at this time. Possible Donors: Yes, her children. Transportation: Yes, both Charlene and Rodolfo drive and have vehicles. Patient's understanding of their diagnosis: My kidney disease is stage 4 and it was caused by my blood pressure. She states that while she is not on dialysis yet, her doctor has mentioned needing it soon. Barriers to treatment plan: None noted at this time. STEELER plan: Continue to follow Charlene. documented in this encounter Plan of Treatment Scheduled Procedures Name Priority Associated Diagnoses Date/Time EGD, UPPER GI ENDOSCOPY Gastroesophageal reflux disease, esophagitis presence not specifi ed documented as of this encounter Visit Diagnoses Diagnosis Pre-transplant evaluation for kidney tra nsplant Other specified pre-operative examinatio n documented in this encounter Care Teams Weatherization Crew Leader Relationship Specialty Start Date End Date Sanjuanita Lee MD PCP - General 03/05/13 12/23/[address] [place] [address] documented as of this encounter
--- OUTSIDE RECORDS SUMMARY | 2022-02-22 23:31 | XMS_ITS | Encounter Summary ---
:1950 Author Organization [facility] [place] [address] Care Team Providers Name Role Phone Sanjuanita Lee MD Primary Care Provider Encounter Details Date Type Department Care Team Description 04/01/2019 Abstract Solid Organ Transpla nt at [facility] [place] [address] Social History Tobacco Use Types Packs/Day [...] on filedocumented in this encounter Care Teams Pocket Cutter Relationship Specialty Start Date End Date Sanjuanita Lee MD PCP - General 03/05/13 12/23/21 [place] [address] documented as of this encounter
--- OUTSIDE RECORDS SUMMARY | 2022-02-22 23:31 | XMS_ITS | Encounter Summary ---
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 HC PARATHYROID Routine 05/24/2019 1:16 PM CKD (chronic Results for this HORMONE(PTH INTACT EST kidney disease) proced ure are in stage 5, GFR less the result s than 15 ml/min section. HEMOGRAM Routine 05/24/2019 1:16 PM CKD (chronic Results f or this EST kidney disease) procedure ar e in stage 5, GFR less the result s than 15 ml/min section. DIFFERENTIAL, AUTOMATED Routine 05/24/2019 1:16 PM CKD (chroni c Results for this EST kidney disease) procedure ar e in stage 5, GFR less the result s than 15 ml/min section. HC HERPES TYPE II AB, Routine 05/24/2019 1:16 PM Stage 4 chron ic Results for this IGG EST kidney disease procedure are in Pre-transplant the results evaluation for section. kidney transplant HC HEPATITIS C ANTIBODY Routine 05/24/2019 1:16 PM Stage 4 chr onic Results for this EST kidney disease procedure are in Pre-transplant the results evaluation for section. kidney transplant HC EBV (VCA) AB Routine 05/24/2019 1:16 PM Stage 4 chronic Res ults for this EST kidney disease procedure are in Pre-transplant the results evaluation for section. kidney transplant HC IRON BINDING Routine 05/24/2019 1:16 PM CKD (chronic Result s for this CAPACITY EST kidney disease) procedure ar e in stage 5, GFR less the result s than 15 ml/min section. HC HEP B CORE AB IGM Routine 05/24/2019 1:16 PM Stage 4 chroni c Results for this EST kidney disease procedure are in Pre-transplant the results evaluation for section. kidney transplant HC SYPHILIS ANTIBODY Routine 05/24/2019 1:16 PM Stage 4 chroni c Results for this EST kidney disease procedure are in Pre-transplant the results evaluation for section. kidney transplant ABO/RH TYPING Routine 05/24/2019 1:16 PM Stage 4 chronic Resul ts for this EST kidney disease procedure are in Pre-transplant the results evaluation for section. kidney transplant HC HCV QUANTIFICATION Routine 05/24/2019 1:16 PM Stage 4 chron ic Results for this EST kidney disease procedure are in Pre-transplant the results evaluation for section. kidney transplant HC TOXO AB IGG Routine 05/24/2019 1:16 PM Stage 4 chronic Resu lts for this EST kidney disease procedure are in Pre-transplant the results evaluation for section. kidney transplant HC HIV SCREEN, 4TH Routine 05/24/2019 1:16 PM Stage 4 chronic Results for this GENERATION EST kidney disease procedure are in Pre-transplant the results evaluation for section. 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 kidney transplant HC CMV AB IGG Routine 05/24/2019 1:16 PM Stage 4 chronic Resul ts for this EST kidney disease procedure are in Pre-transplant the results evaluation for section. kidney transplant HC PARTIAL Routine 05/24/2019 1:16 PM Stage 4 chronic Result s for this THROMBOPLASTIN TIME EST kidney disea se procedure are in Pre-transplant the results evaluation for section. kidney transplant HC PROTHROMBIN TIME Routine 05/24/2019 1:16 PM Stage 4 chronic Results for this EST kidney disease procedure are in Pre-transplant the results evaluation for section. kidney transplant HC CBC,PLT & AUTO DIFF Routine 05/24/2019 1:16 PM CKD (chronic EST kidney disease) stage 5, GFR less than 15 ml/min ANTIBODY SCREEN Routine 05/24/2019 1:16 PM Stage 4 chronic Res ults for this EST kidney disease procedure are in Pre-transplant the results evaluation for section. kidney transplant HC ANTIBODY Routine 05/24/2019 1:16 PM Stage 4 chronic DETECTION,CAPTURE-R EST kidney disea se Pre-transplant evaluation for kidney transplant HC VARICELLA ZOSTER Routine 05/24/2019 1:16 PM Stage 4 chronic Results for this ANTIBODY EST kidney disease procedure are in Pre-transplant the results evaluation for section. kidney transplant HC URIC ACID, SERUM Routine 05/24/2019 1:16 PM CKD (chronic Re sults for this EST kidney disease) procedure ar e in stage 5, GFR less the result s than 15 ml/min section. HC PHOSPHORUS, SERUM Routine 05/24/2019 1:16 PM CKD (chronic R esults for this EST kidney disease) procedure ar e in stage 5, GFR less the result s than 15 ml/min section. HC FERRITIN, SERUM Routine 05/24/2019 1:16 PM CKD (chronic Res ults for this EST kidney disease) procedure ar e in stage 5, GFR less the result s than 15 ml/min section. HC ALBUMIN, SERUM Routine 05/24/2019 1:16 PM CKD (chronic Resu lts for this EST kidney disease) procedure ar e in stage 5, GFR less the result s than 15 ml/min section. BASIC METABOLIC PANEL Routine 05/24/2019 1:16 PM CKD (chronic Results for this (NON-FASTING) EST kidney disease) procedure a re in stage 5, GFR less the result s than 15 ml/min section. HC PROTEIN, Routine 05/24/2019 1:09 PM CKD (chronic Results f or this QUANTITATIVE, URINE EST kidney disease) proce dure are in stage 5, GFR less the result s than 15 ml/min section. documented in this encounter Results ABORH Recheck Status (05/24/2019 1:16 PM EST) [facility] zulily Method Time Signature ABORH Type Completed [facility] LABORATORY Specimen Anatomical Collection Method Collection Time Receive d Time (Source) Location / / Volume Laterality Blood specimen 05/24/2019 1:16 PM 020 1:46 (specimen) EST PM EST Resulting Agency Comment Spec In Lab Brent Salinas MD BLOOD BANK ORDERABLES Performing Organization Address City/State/ZIP Code Phon e Number [place] [phone] (ABNORMAL) Differential, Automated (05/24/2019 1:16 PM EST) [facility] zulily Method Time Signature Neutrophils % 66.3 % [facility] LABORATORY Neutr Abs (ANC) 7.47 (H) 1.70 - [facility] 6.10 [facility] x10(3)/[facility] LABORATORY Lymphocytes % 14.8 % [facility] LABOR[facility]ORY Lymphocytes Abs 1.7 0.9 - 3.2 [facility] x10(3)/[facility] LABORATORY Monocytes % 10.7 % [facility] LABORATORY Monocyte Abs 1.2 (H) 0.3 - 0.9 [facility] x10(3)/[facility] LABORATORY Eosinophils % 6.6 % [facility] LABOR[facility] Eosinophils Abs 0.7 (H) 0.0 - 0.4 [facility] x10(3)/[facility] LABORATORY Basophils % 1.0 % [facility] LABOR[facility] Basophils Abs 0.1 0.0 - 0.1 [facility] x10(3)/[facility] LABORATORY Immature Gran % 0.60 % [facility] LABORATORY Comment: Immature granulocytes(IG's)percentage an d absolute count will include metamyelocytes, myelocytes, and promyelo cytes. Blood smears from CBCs yielding IG's will be scanned manually for concor dance. If this scan disagrees with the automated IG or if promyelocytes are not ed, a manual differential will be performed. Blanca Gran Abs 0.07 (H) 0.00 - 0.04 x10(3)/[facility] LABORATORY Specimen Anatomical Collection Method Collection Time Receive d Time (Source) Location / / Volume Laterality Blood specimen 05/24/2019 1:16 PM 020 1:22 (specimen) EST PM EST Resulting Agency Comment Spec In Lab Champ ACEVES HEMATOLOGY ORDERABLES Performing Organization Address City/State/[place] [address] (ABNORMAL) Hemogram (05/24/2019 1:16 PM EST) Analysis Performed At Patho logist Time Signature WBC 11.2 (H) 4.0 - 9.5 [facility] x10(3)/[facility] LABORATORY RBC 4.20 4.00 - [facility] 5.21 [facility] x10(6)/[facility] LABORATORY Hemoglobin 12.8 11.7 - [facility] 15.5 gm/dL [facility] LABORATORY Hematocrit 38.9 35.7 - [facility] 45.8 % [facility] LAB[facility]AT[facility] MCV 92.6 82.6 - [facility] 94.4 fL [facility] LABORATORY MCH 30.5 27.1 - [place] 32.0 pg [facility] LABORATORY MCHC 32.9 31.7 - [facility] 35.0 gm/dL [facility] LABORATORY Platelets 236 145 - 357 [facility] x10(3)/[facility] LABORATORY RDWSD 44.0 37.0 - [facility] 46.0 [facility] LABORATORY RDWCV 13.1 11.5 - [facility] 14.1 % [facility] LABORATORY MPV 10.8 7.6 - 12.9 [facility] LABORATORY nRBC % Auto 0.0 % [facility] LABORATORY nRBC Abs Auto 0.000 0.000 - [facility] 0.000 [facility] x10(3)/[facility] LABORATORY Specimen Anatomical Collection Method Collection Time Receive d Time (Source) Location / / Volume Laterality Blood specimen 05/24/2019 1:16 PM 020 1:22 (specimen) EST PM EST Resulting Agency Comment Spec In Lab Champ ENGLE HEMATOLOGY ORDERABLES Performing Organization Address City/[facility]/[place] [address] Antibody screen (05/24/2019 1:16 PM EST) Patholo gist Method Time Signature Ab Screen Negative [facility] LABORATORY Expires at 05/27/2019 [facility] [id number] on: [facility] LABORATORY Specimen Anatomical Collection Method Collection Time Receive d Time (Source) Location / / Volume Laterality Blood specimen 05/24/2019 1:16 PM 020 1:46 (specimen) EST PM EST Resulting Agency Comment Spec In Lab Brent Salinas MD BLOOD BANK ORDERABLES Performing Organization Address City/State/[place] [address] ABO/Rh Typing (05/24/2019 1:16 PM EST) P athologist Signature ABORh Type A Pos [facility] LABORATORY Specimen Anatomical Collection Method Collection Time Receive d Time (Source) Location / / Volume Laterality Blood specimen 05/24/2019 1:16 PM 020 1:46 (specimen) EST PM EST Resulting Agency Comment Spec In Lab Brent Salinas MD BLOOD BANK ORDERABLES Performing Organization Address City/State/[place] [address] (ABNORMAL) Basic Metabolic Panel (non-fasting) (05/24/2019 1:16 PM EST) P athologist Signature Glucose Lvl 148 65 - 199 [facility] mg/dL [facility] LABORATORY Comment: Diabetes: >=200 mg/dL plus symp toms BUN 31 (H) 8 - 18 mg/dL [facility] LABORATORY Creatinine 2.31 (H) 0.70 - 1.20 mg/dL [facility] LABORATORY Sodium 139 135 - 145 mmol/L [facility] LABORATORY Potassium 3.7 3.5 - 5.0 mmol/L [facility] LABOR[facility]ORY Comment: Please note: ??Patients with WBC >100,00 0 may have falsely elevated Potassium levels. ??For accurate Potassium quantif ication in these patients send serum separator tube (gold top) for subsequent determinations. ??Contact the Clinical Chemistry Laboratory if there are any qu estions. Chloride 97 (L) 98 - 107 mmol/L [facility] LABORATORY CO2 26 22 - 31 mmol/L [facility] LABORATORY Anion Gap 16 (H) 5 - 15 mmol/L [facility] LABORATORY Calcium 9.3 8.5 - 10.5 mg/dL [facility] LABORATORY Estimated GFR 21 (L) >=60 mL/min/1.73 m?? [facility] LABOR[facility] Comment: The eGFR was calculated using the CKD-EP I equation. As with all creatinine based estimates of kidney function, eGFR values calculated with the CKD-EPI equation are not accurate in patients wi th acute kidney failure, extremes of body mass or the acutely ill. [email or web address] eGFR 24 (L) >=60 mL/min/1.73 m?? [facility] LABORATORY Comment: The eGFR was calculated using the CKD-EP I equation. As with all creatinine based estimates of kidney function, eGFR values calculated with the CKD-EPI equation are not accurate in patients wi th acute kidney failure, extremes of body mass or the acutely ill. [email or web address] Specimen Anatomical Collection Method Collection Time Receive d Time (Source) Location / / Volume Laterality Blood specimen 05/24/2019 1:16 PM 020 1:22 (specimen) EST PM EST Resulting Agency Comment Spec In Lab Mainor Doyle MD CHEMISTRY ORDERABLES Performing Organization Address City/[facility] Code Phon e Number [address] Phosphorus (05/24/2019 1:16 PM EST) P athologist Signature Phosphorus 3.9 2.5 - 4.5 [place] mg/dL [facility] LABORATORY Specimen Anatomical Collection Method Collection Time Receive d Time (Source) Location / / Volume Laterality Blood specimen 05/24/2019 1:16 PM 020 1:22 (specimen) EST PM EST Resulting Agency Comment Spec In Lab Mainor Doyle MD CHEMISTRY ORDERABLES Performing Organization Address [facility] Phon e Number [address] Albumin Level (05/24/2019 1:16 PM EST) P athologist Signature Albumin 4.2 3.2 - 5.2 [place] gm/dL [facility] LABORATORY Specimen Anatomical Collection Method Collection Time Receive d Time (Source) Location / / Volume Laterality Blood specimen 05/24/2019 1:16 PM 020 1:22 (specimen) EST PM EST Resulting Agency Comment Spec In Lab Mainor Doyle MD CHEMISTRY ORDERABLES Performing Organization Address City/[facility]/[place] [address] (ABNORMAL) Uric acid (05/24/2019 1:16 PM EST) P athologist Signature Uric Acid 7.0 (H) 2.5 - 6.5 [place] mg/dL [facility] LABORATORY Specimen Anatomical Collection Method Collection Time Receive d Time (Source) Location / / Volume Laterality Blood specimen 05/24/2019 1:16 PM 020 1:22 (specimen) EST PM EST Resulting Agency Comment Spec In Lab Mainor Doyle MD CHEMISTRY ORDERABLES Performing Organization Address City/[facility] [place] [address] PTH (05/24/2019 1:16 PM EST) athologist Signature PTH 45 15 - 65 [place] pg/mL [facility] LABORATORY Specimen Anatomical Collection Method Collection Time Receive d Time (Source) Location / / Volume Laterality Blood specimen 05/24/2019 1:16 PM 020 1:22 (specimen) EST PM EST Resulting Agency Comment Spec In Lab Mainor Doyle MD CHEMISTRY ORDERABLES Performing Organization Address City/State/[place] [address] Ferritin (05/24/2019 1:16 PM EST) athologist [facility] Ferritin 81 30 - 400 [place] ng/mL [facility] LABORATORY Comment: Pediatric reference ranges not verified at [facility], interpret with caution. Reference ranges for females greater letty n 50 years of age approach values for men, i.e., 30-400 ng/mL. Specimen Anatomical Collection Method Collection Time Receive d Time (Source) Location / / Volume Laterality Blood specimen 05/24/2019 1:16 PM 020 1:22 (specimen) EST PM EST Resulting Agency Comment Spec In Lab Mainor Doyle MD CHEMISTRY ORDERABLES Performing Organization Address City/[facility]/ZIP Code Phon e Number [address] (ABNORMAL) Iron and TIBC (05/24/2019 1:16 PM EST) athologist [facility] Iron 48 30 - 150 [place] mcg/dL [facility] LABORATORY TIBC 298 250 - 450 [facility] mcg/dL [facility] LABORATORY Iron Saturation 16 (L) 20 - 50 % [facility] LABORATORY Specimen Anatomical Collection Method Collection Time Receive d Time (Source) Location / / Volume Laterality Blood specimen 05/24/2019 1:16 PM 020 1:22 (specimen) EST PM EST Resulting Agency Comment Spec In Lab Mainor Doyle MD CHEMISTRY ORDERABLES Performing Organization Address City/State/ZIP Code Phon e [place] [facility] [place] [address] APTT (05/24/2019 1:16 PM EST) P athologist Signature PTT 32 25 - 37 sec [facility] LABORATORY Comment: The PTT is NOT appropriate for heparin m onitoring. Use the Anti-Xa level for heparin monitoring (HEP UFH) or LMWH mon itoring (HEP LMW). A PTT less than 37 seconds generally indicates adequate hem ostasis. Specimen Anatomical Collection Method Collection Time Receive d Time (Source) Location / / Volume Laterality Blood specimen 05/24/2019 1:16 PM 020 1:22 (specimen) EST PM EST Resulting Agency Comment Spec In Lab Brent Salinas MD HEMATOLOGY ORDERABLES Performing Organization Address City/[facility]/[place] [address] Prothrombin Time (05/24/2019 1:16 PM EST) P athologist Signature PT 12.2 9.4 - 12.5 [facility] LABORATORY INR 1.0 [facility] LABORATORY Comment: An INR <2.0 indicates adequate [...] Location / / Volume Laterality Blood specimen 05/24/2019 1:16 PM 020 1:22 (specimen) EST PM EST Resulting Agency Comment Spec In Lab Brent Salinas MD HEMATOLOGY ORDERABLES Performing Organization Address City/State/[place] [address] Hepatitis B Core Antibody, IgM (05/24/2019 1:16 PM EST) Analysis Performed At Patho logist Time Signature Hep B Core IgM Negative Negative [facility] LABORATORY Specimen Anatomical Collection Method Collection Time Receive d Time (Source) Location / / Volume Laterality Blood specimen 05/24/2019 1:16 PM 020 1:22 (specimen) EST PM EST Resulting Agency Comment Spec In Lab Brent Salinas MD IMMUNOLOGY ORDERABLES Performing Organization Address City/[facility]/ZIP Code Phon e Number [address] Hepatitis B Surface Antibody (05/24/2019 1:16 PM EST) P athologist Signature HepB Surface <3.5 IU/L [facility] Ab Quant [facility] LABORATORY Comment: HepB Surface Ab Quant: Unvaccinated: < 8.5 IU/L Vaccinated: > 11.5 IU/L HepB Surface Ab Negative [facility] LABORATORY Comment: Patient is presumed to be not vaccinated or immune to HBV infection. Expected Results: Vaccinated: Positive Unvaccinated: Negative Specimen Anatomical Collection Method Collection Time Receive d Time (Source) Location / / Volume Laterality Blood specimen 05/24/2019 1:16 PM 020 1:22 (specimen) EST PM EST Resulting Agency Comment Spec In Lab Brent Salinas MD IMMUNOLOGY ORDERABLES Performing Organization Address City/[facility]/ZIP Code Phon e Number [address] Hepatitis B Surface Antigen (05/24/2019 1:16 PM EST) Analysis Performed At Patho logist Time Signature HepB Surface Negative Negative [facility] LABORATORY Specimen Anatomical Collection Method Collection Time Receive d Time (Source) Location / / Volume Laterality Blood specimen 05/24/2019 1:16 PM 020 1:22 (specimen) EST PM EST Resulting Agency Comment Spec In Lab Brent Salinas MD CHEMISTRY ORDERABLES Performing Organization Address City/[facility]/ZIP Code Phon e Number [address] Hepatitis C Antibody (05/24/2019 1:16 PM EST) Analysis Performed At Patho logist Time Signature Hepatitis C Ab Negative Negative [facility] LABORATORY Specimen Anatomical Collection Method Collection Time Receive d Time (Source) Location / / Volume Laterality Blood specimen 05/24/2019 1:16 PM 020 1:22 (specimen) EST PM EST Resulting Agency Comment Spec In Lab Brent Salinas MD IMMUNOLOGY ORDERABLES Performing Organization Address City/State/ZIP Code Phon e Number [address] Hepatitis C RNA, quantitative, PCR (05/24/2019 1:16 PM EST) Component Value Ref Test Analysis Performed At Patholo gist Range Method Time Signature HCV Viral <12 IU/mL [facility] LABORATORY HCV Viral Result: <12 IU/mL, Target not detected) [facility] Indication for Study: Hepatitis C Infection [facility] Analysis: The [employer] RealTime HCV assay is an in vitro reverse card maker LABORATORY polymerase chain reaction (RT-PCR)for the quantitation of hepatitis C viral (HCV) RNA in human serum or plasma (EDTA) from HCV-infected indivi duals. Sample: plasma (0.7 mL minimum volume) Method: [employer] RealTime HCV Assay Linear Range: 12 IU/mL - 100,000,000IU/mL Note: The [employer] RealTime HC V Assay has been approved by the U.S. Food and Drug Administration. Comment: [VERIFIED DATE]05.26.19 Verified By:Lab Review, Molecular DietBetteri cs (Electronic Signature) Specimen Anatomical Collection Method Collection Time Receive d Time (Source) Location / / Volume Laterality Blood specimen 05/24/2019 1:16 PM 020 1:22 (specimen) EST PM EST Resulting Agency Comment Spec In Lab Brent Salinas MD IMMUNOLOGY ORDERABLES Performing Organization Address City/State/ZIP Code Phon e Number [address] CMV Antibody, IgG (05/24/2019 1:16 PM EST) P athologist Signature CMV IgG Negative Negative [facility] LABORATORY Specimen Anatomical Collection Method Collection Time Receive d Time (Source) Location / / Volume Laterality Blood specimen 05/24/2019 1:16 PM 020 7:28 (specimen) EST AM EST Resulting Agency Comment Spec In Lab Brent Salinas MD IMMUNOLOGY ORDERABLES Performing Organization Address City/State/ZIP Code Phon e Number [address] (ABNORMAL) Ashly-Mcintyre Virus Antibodies (05/24/2019 1:16 PM EST) Patholo gist Method Time Signature EBV (VCA) IgG Pos (A) Neg [facility] Antibody [facility] LABORATORY EBV (VCA) IgM Neg Neg [facility] Antibody [facility] LABORATORY EBNA Antibodies Pos (A) Neg [facility] LABORATORY EBV Interpretation Results [facility] infection. HOSPITAL LABORATORY Comment: In most populations, at least 90% of the adult population will have been infected with EBV some time in the past and therefore, will be positive for anti-VCA/IgG and anti-EBNA. Antibodies t o EBNA develop 6-8 weeks after primary infection and remain present for life. P resence of VCA/IgM antibodies indicates recent primary infection with EBV. Specimen Anatomical Collection Method Collection Time Receive d Time (Source) Location / / Volume Laterality Blood specimen 05/24/2019 1:16 PM 020 7:28 (specimen) EST AM EST Resulting Agency Comment Spec In Lab Brent Salinas MD IMMUNOLOGY ORDERABLES Performing Organization Address City/State/ZIP Code Phon e Number [address] HSV 1 and 2 IgG Antibodies (05/24/2019 1:16 PM EST) P athologist Signature HSV Type 1 Neg Neg [facility] Antibody, IgG [facility] LABORATORY HSV Type [address] [facility] [place] Antibody, [facility] LABORATORY Specimen Anatomical Collection Method Collection Time Receive d Time (Source) Location / / Volume Laterality Blood specimen 05/24/2019 1:16 PM 020 7:28 (specimen) EST AM EST Resulting Agency Comment Spec In Lab Brent Salinas MD IMMUNOLOGY ORDERABLES Performing Organization Address City/State/ZIP Code Phon e Number [address] HIV Screen, 4th Generation ([facility]/CGP/APD) (05/24/2019 1:16 PM EST) Analysis Performed At Patho logist Time Signature HIV-1/2 Ab and Negative Negative [facility] Comment: This 4th Generation HIV test screens for the presence of the HIV-1 p24 antigen as well as antibodies reactive against H IV-1 and HIV-2. A negative screen does not rule out an acute HIV infection. If acute HIV infection is suspected, testing should be repeated in 2 - 3 week s or HIV nucleic acid testing performed. Specimen Anatomical Collection Method Collection Time Receive d Time (Source) Location / / Volume Laterality Blood specimen 05/24/2019 1:16 PM 020 1:22 (specimen) EST PM EST Resulting Agency Comment Spec In Lab Brent Salinas MD IMMUNOLOGY ORDERABLES Performing Organization Address City/State/ZIP Code Phon e Number [address] Syphilis Screening Antibody with reflex RPR (05/24/2019 1:16 PM EST) Analysis Performed At Patho logist Time Signature Syphilis Negative Negative [facility] IgG/IgM [facility] Specimen Anatomical Collection Method Collection Time Receive d Time (Source) Location / / Volume Laterality Blood specimen 05/24/2019 1:16 PM 020 1:22 (specimen) EST PM EST Resulting Agency Comment Spec In Lab Brent Salinas MD IMMUNOLOGY ORDERABLES Performing Organization Address City/State/ZIP Code Phon e Number [address] Toxoplasma Antibody, IgG (05/24/2019 1:16 PM EST) Patholo gist Method Time Signature Toxoplasma IgG Negative Negative [facility] Specimen Anatomical Collection Method Collection Time Receive d Time (Source) Location / / Volume Laterality Blood specimen 05/24/2019 1:16 PM 020 7:28 (specimen) EST AM EST Resulting Agency Comment Spec In Lab Brent Salinas MD IMMUNOLOGY ORDERABLES Performing Organization Address City/[facility]/ZIP Code Phon e Number [address] Varicella zoster Antibody, IgG (05/24/2019 1:16 PM EST) P athologist Signature Varicella IgG Pos [facility] Specimen Anatomical Collection Method Collection Time Receive d Time (Source) Location / / Volume Laterality Blood specimen 05/24/2019 1:16 PM 020 7:28 (specimen) EST AM EST Resulting Agency Comment Spec In Lab Brent Salinas MD IMMUNOLOGY ORDERABLES Performing Organization Address City/State/[place] [address] (ABNORMAL) Protein/Creatinine Ratio, urine (05/24/2019 1:09 PM EST) P athologist Signature U Creatinine 34 mg/dL [facility] U Protein Ran 77 (H) 0 - 12 [facility] mg/dL [facility] Prot/Cre Ratio 2.3 ratio [facility] Specimen Anatomical Collection Method Collection Time Receive d Time (Source) Location / / Volume Laterality Urine specimen 05/24/2019 1:09 PM 020 1:23 (specimen) EST PM EST Resulting Agency Comment Spec In Lab Mainor Doyle MD URINE ORDERABLES Performing Organization Address City/[facility]/[place] [address] documented in this encounter Visit Diagnoses Diagnosis Stage 4 chronic kidney disease Pre-transplant evaluation for kidney tra nsplant Other specified pre-operative examinatio n CKD (chronic kidney disease) stage 5, GF R less than 15 ml/min Chronic kidney disease, Stage V documented in this encounter Care Teams Police Booking Officer Relationship Specialty Start Date End Date Sanjuanita Lee MD PCP - General 03/05/13 12/23/[address] [place] [address] documented as of this encounter
--- OUTSIDE RECORDS SUMMARY | 2022-02-22 23:31 | XMS_ITS | Encounter Summary ---
:1950 Author Organization [facility] [place] [address] Care Team Providers Name Role Phone Sanjuanita Lee MD Primary Care Provider Encounter Details Date Type Department Care Team Description 06/02/2019 Notes Only Solid Organ Transplant at Daily, Brent Sandoval MD [facility] Jennifer [place] [address] [place] [address] [phone] (Wo rk) Social History Tobacco Use Types [...] Progress Notes Daily, Brent Sandoval MD - 06/02/2019 11:[address] 01/07/19 reviewed. She has a 3.5cm AAA with/ considerable calcification. This calcification persists into the iliacs, but there are places to clamp and sew. documented in this encounter Plan of Treatment Scheduled Procedures Name Priority Associated Diagnoses Date/Time EGD, UPPER GI ENDOSCOPY Gastroesophageal reflux disease, esophagitis presence not specifi ed documented as of this encounter Visit Diagnoses Not on filedocumented in this encounter Care Teams Hospice Rn Relationship Specialty Start Date End Date Sanjuanita Lee MD PCP - General 03/05/13 12/23/[address] [place] [address] documented as of this encounter
--- OUTSIDE RECORDS SUMMARY | 2022-02-22 23:31 | XMS_ITS | Encounter Summary ---
:1950 Author Organization [place] [address] Care Team Providers Name Role Phone Sanjuanita Lee MD Primary Care Provider Reason for Visit Reason Comments Medication Refill Encounter Details Date Type Department Care Team Description 09/25/2019 Refill Internal Medicine at [facility] Eliezer Larsen MD [facility] [place] [address] [place] [address] GENERAL INTERNAL MEDICINE [phone] [place], [place] [address] (Wo rk) Social History Tobacco Use Types [...] on filedocumented in this encounter Care Teams Tax Form Preparer Relationship Specialty Start Date End Date Sanjuanita Lee MD PCP - General 03/05/13 12/23/[address] [place] [address] documented as of this encounter
--- OUTSIDE RECORDS SUMMARY | 2022-02-22 23:31 | XMS_ITS | Encounter Summary ---
:1950 Author Organization [facility] [place] [address] Care Team Providers Name Role Phone Sanjuanita Lee MD Primary Care Provider Encounter Details Date Type Department Care Team Description 10/05/2019 Tech Visit Vascular Lab at [facility] Ren al artery stenosis, afognak; [facility] Abdominal aortic aneurysm (AAA) without rupture; Hospital Stage 5 chronic kidney disea se; [facility] Pre-trans plant evaluation [place] [address] Social History Tobacco Use Types Packs/Day [...] Diagnosis Comme nts AAA DUPLEX COMPLETE Routine 10/05/2019 10:04 AM Abdominal aort ic Results for this EDT aneurysm (AAA) procedure are in without rupture the results section. RENAL DUPLEX Routine 10/05/2019 10:04 AM Renal artery Results for this COMPLETE EDT stenosis, afognak procedure a re in the results section. BEVERLY, LEGS, MULTIPLE Routine 10/05/2019 10:04 AM Stage 5 chroni c Results for this LEVELS EDT kidney disease procedure are in Pre-transplant the results evaluation for section. kidney transplant CAROTID DUPLEX, Routine 10/05/2019 10:04 AM Stage 5 chronic Re sults for this BILATERAL EDT kidney disease procedure are in Pre-transplant the results evaluation for section. kidney transplant documented in this encounter Results Carotid Duplex, Bilateral (10/05/2019 10:04 AM EDT) Component Value Ref Test Analysis Performed At [facility] Range Method Time Signature VB Text Department: Vascular Surgery Lab VASCUBASE Report Patient: [id number] (PRETTY HARMON) CPT: 28732 ICD10: N18.5;Z01.818 Referring Physician: ELMIRA HOSKINS ?? Phone: Indications: Pre-op kidney transplant evaluation, ? carotid stenosis ICD10 Diagnosis Code: N18.5, Z01.818 Findings: ICA Proximal, Right ? PSV (cm/s): 91 ? EDV (cm/s): 25 ? ICA/CCA: 2.0 ? Plaque Structure: Echogenic ? Plaque Surface: Smooth ? %Stenosis: <15% ICA Distal, Right ? PSV (cm/s): 76 ? EDV (cm/s): 22 ? ICA/CCA: 1.7 CCA Distal, Right ? PSV (cm/s): 45 ? EDV (cm/s): 12 ? %Stenosis: Minimal CCA Proximal, Right ? PSV (cm/s): 65 ? EDV (cm/s): 15 External Carotid Artery, Right ? PSV (cm/s): 53 ? EDV (cm/s): 0 ? %Stenosis: <50% Vertebral, Right ? PSV (cm/s): 45 ? EDV (cm/s): 10 ? Direction of Flow: Antegrade ICA Proximal, Left ? PSV (cm/s): 86 ? EDV (cm/s): 22 ? ICA/CCA: 1.1 ? Plaque Structure: Echogenic ? Plaque Surface: Irregular ? %Stenosis: <15% ICA Distal, Left ? PSV (cm/s): 85 ? EDV (cm/s): 21 ? ICA/CCA: 1.1 CCA Distal, Left ? PSV (cm/s): 77 ? EDV (cm/s): 16 ? %Stenosis: Minimal CCA Proximal, Left ? PSV (cm/s): 77 ? EDV (cm/s): 14 External Carotid Artery, Left ? PSV (cm/s): 64 ? EDV (cm/s): 0 ? %Stenosis: <50% Vertebral, Left ? PSV (cm/s): 63 ? EDV (cm/s): 14 ? Direction of Flow: Antegrade Interpretation: RIGHT: A thin layer of circumferential p laque is present in the common carotid artery causing minimal steno sis. There is minimal smooth plaque in the proximal internal carotid artery causing <15% cornelius nosis when compared to the more distal internal carotid artery. The bifurcation level is in the mid neck. LEFT: A thin layer of circumferential plaque is present in the common carotid artery causing minimal stenosis. There is irregular plaque i n the bifurcation/proximal interna l carotid artery causing <15% stenosis when compared to the more distal internal carotid artery. The bifurcation level is in the mid neck. Vertebral Artery Data: Patent vertebral arteries with normal antegrade Doppler waveforms and velocities bilaterally. Comparison: ??No previous study in our vascular lab da tabase for comparison. Electronically Signed by: KYA YOO MD on 2019-10-10 01: 43:07 PM VB Text End of Report VASCUBASE Report Specimen (Source) Anatomical Collection Method Collection Time Re ceived Time Location / / Volume Laterality 10/05/2019 10:04 AM EDT Elmira Hoskins MD VASCULAR ORDERABLES Performing Organization Address City/State/ZIP Code Phon e Number VASCUBASE BEVERLY, legs, multiple levels (10/05/2019 10:04 AM EDT) Component Value Ref Test Analysis Performed At [facility] Range Method Time Signature VB Text Department: Vascular Surgery Lab VASCUBASE Report Patient: [id number] (PRETTY HARMON) CPT: 13466 ICD10: Z01.818;I73.9;N18.5 Referring Physician: ELMIRA HOSKINS ?? Phone: Indications: Pre-op kidney transplant, ? change in BEVERLY Diabetes mellitus: No ICD10 Diagnosis Code: I73.9, Z01.818, N18.5 Findings: Right ?Pressure (mm Hg) ?? BEVERLY ??Waveform ? TBI ?? Brachial Artery ?177 ? Common Femoral Artery ?Biphasic-Rev ? Popliteal Artery ? Biphasic ? Dorsalis Pedis (Ankle) Arter y ?183 ? 1.02 ??Bi-Triphasic ? Posterior Tibial (Ankle) Art mikie ??179 ? 1.00 ??Triphasic ? Great Toe ?84 ?0.47 ?? Left ? Pressure (mm Hg) ?? BEVERLY ??Waveform ?TBI ?? Brachial Artery ?179 ? Common Femoral Artery ?Monophasic ? Popliteal Artery ? Monophasic ? Dorsalis Pedis (Ankle) Arter y ?120 ? 0.67 ??Sibley- Biphasic ? Posterior Tibial (Ankle) Art mikie ??131 ? 0.73 ??Sibley-Biphasic ? Great Toe ?71 ? 0.40 ?? Interpretation: RIGHT: No evidence of lower extremity ar terial occlusive disease to the ankle. 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 No identifiable change when compared to the previous exam performed on 010. LEFT: Mild lower extremity arterial occlusive disease to the ankle. 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 Significant improvement in the dorsalis pedis and po sterior tibial arteries with no change in the TBI when compared to previous exam performed on 010. NOTE: Hypertension is present based on D oppler derived systolic brachial blood pressure. Previous ABIs with change from previous value: Date ?RIGHT DP ?? RIGHT PT ?? RT GR TOE ??RT Sec T OE ??1.02 ? 0.96 ? 0.48 ? ---- Current ? 1.02( .00) 1.00(+.04) 0.47(-.01) ---- Date ?LEFT DP ?LEFT PT ?LT GR TOE LT Sec T OE ??0.52 ? 0.58 ? 0.31 ? ---- Current ? 0.67(+.15) 0.73(+.15) 0.40(+.09) ---- Electronically Signed by: KYA YOO MD on 2019-10-10 01: 45:34 PM VB Text End of Report VASCUBASE Report Specimen (Source) Anatomical Collection Method Collection Time Re ceived Time Location / / Volume Laterality 10/05/2019 10:04 AM EDT Elmira Hoskins MD VASCULAR ORDERABLES Performing Organization Address City/State/ZIP Code Phon e Number VASCUBASE AAA Duplex, Complete/Bilateral (10/05/2019 10:04 AM EDT) Component Value Ref Test Analysis Performed At [facility] Range Method Time Signature VB Text Department: Vascular Surgery Lab VASCUBASE Report Patient: [id number] (PRETTY HARMON) CPT: 56507 ICD10: I71.4 Referring Physician: GREYSON MCGARRY ?? Indications: Patient with known AAA, ? size/patency ICD10 Diagnosis Code: I71.4 Findings: Unilateral ? PSV ( cm/s) ??EDV (cm/s) ??Diam AP (cm) ??Diam Lateral (cm) ?? Syl Renal Aorta ? 60 ?14 ? 3.0 ?3.2 ?? Infra Renal Aorta ?46 ?10 ? 4.0 ?4.7 ?? Distal Aorta ? 25 ? 4 ? 3.7 ?3.6 ?? Interpretation: Patent abdominal aorta with diffusely large diameter measure ments noted throughout which are consistent with aneurysmal dilation (largest approximate diameter measurement 4.0 cm x 4.7 cm). There it mural thrombus/laminated plaque noted throughout the aorta. No evidence of stenosis was iden tified. Unable to visualize the bilateral proximal common iliac dean elio due to overlying bowel gas; cannot exclude stenosis or aneurysmal d ilation here. Comparison: ??No previous study in our vascular lab da tabase for comparison. Electronically Signed by: ISAC BRAVO on 2019-10-05 11:33 :36 AM VB Text End of Report VASCUBASE Report Specimen (Source) Anatomical Collection Method Collection Time Re ceived Time Location / / Volume Laterality 10/05/2019 10:04 AM EDT Greyson Mcgarry MD VASCULAR ORDERABLES Performing Organization Address City/State/ZIP Code Phon e Number VASCUBASE Duplex Study Renal Arteries, Bilat (10/05/2019 10:04 AM EDT) Component Value Ref Test Analysis Performed At [facility] Range Method Time Signature VB Text Department: Vascular Surgery Lab VASCUBASE Report Patient: [id number] (PRETTY HARMON) CPT: 31807 ICD10: I70.1 Referring Physician: ISAC BRAVO ?? Indications: Patient with h/o right renal artery bypass, ? latia grant ICD10 Diagnosis Code: I70.1 Findings: Syl Renal Aorta ? PSV (cm/s): 82 ? EDV (cm/s): 16 Renal Artery Ostium, Right ? Patent: No Vis Renal Artery Proximal, Right ? Patent: No Vis Renal Artery Mid, Right ? Patent: No Vis Renal Artery Distal, Right ? PSV (cm/s): 77 ? EDV (cm/s): 14 ? RAR: 0.9 ? RI: 0.82 Mid Pole Renal Parenchyma, Right ? PSV (cm/s): 33 ? EDV (cm/s): 8 ? RI: 0.76 ? AT (ms): 34 Renal Hilum, Right ? AT (ms): 34 Kidney Length, Right ? Length (cm): 11.0 Renal Vein, Right ? Patent: Patent Renal Artery Ostium, Left ? PSV (cm/s): 188 ? EDV (cm/s): 4 ? RAR: 2.3 ? RI: 0.98 Renal Artery Proximal, Left ? PSV (cm/s): 88 ? EDV (cm/s): 9 ? RAR: 1.1 ? RI: 0.90 Renal Artery Mid, Left ? Patent: No Vis Renal Artery Distal, Left ? PSV (cm/s): 57 ? EDV (cm/s): 11 ? RAR: 0.7 ? RI: 0.80 Mid Pole Renal Parenchyma, Left ? PSV (cm/s): 25 ? EDV (cm/s): 6 ? RI: 0.75 Renal Hilum, Left ? AT (ms): 34 Kidney Length, Left ? Length (cm): 9.7 Renal Vein, Left ? Patent: Patent Interpretation: Right: Patent suspected distal afognak main renal artery wi th no evidence of hemodynamically significant stenosis. Unable to visualize th e renal artery bypass graft; cannot determine patency or exclude sten osis here. Patent main renal vein. No identifiable change when compared to the previous exam performed on 01/17/2019. Left: Patent origin, proximal, and distal segments of the main renal artery with no evidence of hemodynamically significant stenosis. Unable to visualize the mid segment; cannot excl ude stenosis here. Patent main renal vein. Unable to reproduce the slightly highe r velocities (PSV 195 cm/s) previously identified at the origin renal artery with no change through t he remainder of the exam when compared to 01/17/2019. Previous Renal Studies: Date ? Right PSV - RAR ? Left PSV - RAR ? 320 ?3.37 ? 255 ?2. 68 ? 45 ? 1.15 ? 177 ?4. 54 ? 163 ?---- ? ---- ? --- - ? 37 ? ---- ? ---- ? --- - ? 59 ? 0.84 ? ---- ? --- - ? 88 ? 1.07 ? 195 ?2. 38 Current Exam ?? 77 ? 0.94 ? 188 ?2.2 9 Electronically Signed by: ISAC BRAVO on 2019-10-05 11:20 :11 AM VB Text End of Report VASCUBASE Report Specimen (Source) Anatomical Collection Method Collection Time Re ceived Time Location / / Volume Laterality 10/05/2019 10:04 AM EDT Isac Bravo MD VASCULAR ORDERABLES Performing Organization Address City/State/ZIP Code Phon e Number VASCUBASE documented in this encounter Visit Diagnoses Diagnosis Renal artery stenosis, afognak Atherosclerosis of renal artery Abdominal aortic aneurysm (AAA) without rupture Stage 5 chronic kidney disease Pre-transplant evaluation for kidney tra nsplant Other specified pre-operative examinatio n documented in this encounter Care Teams Optometrist President/Practice Owner Relationship Specialty Start Date End Date Sanjuanita Lee MD PCP - General 03/05/13 12/23/[address] [place] [address] documented as of this encounter
--- OUTSIDE RECORDS SUMMARY | 2022-02-22 23:31 | XMS_ITS | Encounter Summary ---
:1950 Author Organization [place] [address] Care Team Providers Name Role Phone Sanjuanita Lee MD Primary Care Provider Encounter Details Date Type Department Care Team Description 05/19/2019 Office Visit Solid Organ Transplant [place]plant evaluation [facility] [place] [address] Social History Tobacco Use Types Packs/Day [...] as of this encounter Progress Notes Kit Brandon, AGGIE - 05/19/2019 3:15 PM EST Encounter Date: May 18, 2019 Ms. Charlene Harmon is a 68 y.o. female seen for a medication review as part of her kidney transplant work-up. S: Met with patient and her to review current medications and discuss post-transplant medications. Ms. Hamron and her mentioned their concern over sodium-containing medications, as Ms. Harmon has been hospitalized for her CHF, which resulted from taking sodium bicarbonate. She was in the hospital for a week, in which she had terrible fluid retention making it very hard for her to breathe.I assured her and her that we could use alternative diluents for any intravenous medicationsthat required sodium chloride as a base; typically, we can switch medications into dextrose-containing solutions. We also discussed pain medication post-transplant, as both expressed discomfort in starting on an opiate medication unless absolutely needed. Completed the Morisky 8 Item Adherence Questionaire to better better quantify the patient's probability to maintain compliance with a post kidney transplant drug regimen. Ms. Charlene Harmon scored 7 of 8 predicting moderate adherence. The Morisky scale has been validated in the post transplant population. Yes = 0 points, No = 1 point Score 1 - Do you sometimes forget to take your medicine? Yes = 0 Ms. Harmon mentions that she often forgets to take her medications, but her constantly remindsher. She has also implemented putting alarms on her phone to help her remember. She states that her noon-time and 4pm medications are the hardest to remember to take, since they are in the middle of the day when she is busy doing something 2 - People sometimes miss taking their medicines for reasons other than forgetting. Thinking over the past 2 weeks, were there any days when you did not take your medicine? No = 1 3 - Have you ever cut back or stopped taking your medicine without telling your doctor because you felt worse when you took it? No = 1 4 - When you travel or leave home, do you sometimes forget to bring along your medicine? No = 1 Ms. Harmon mentions that she brings all her medications with her when she is out of the house for the day 5 - Did you take all your medicines yesterday? (reverse scoring) Yes = 1 6 - When you feel like your symptoms are under control, do you sometimes stop taking your medicine? No = 1 7 - Taking medicine every day is a real inconvenience for some people. Do you ever feel hassled about sticking to your treatment plan? No = 1 8 - How often do you have difficulty remembering to take all your medicine? __ A. Never/rarely A = 1 __ B. Once in a while B - E = 0 __ C. Sometimes __ D. Usually __ E. All the time A = 1 Scores: <6 = low adherence, 6-7 = medium adherence, 8 = high adherence Gregg English, Rios DM. Concurrent and predictive validity of a self- reported measure of medication adherence. Med Care. 1986;24:67-74. How often or do you run out of one or more of your prescription medications before getting a new refill? No problems noted How often or do you have difficulty affording your prescription medications? No problems noted Allergies: Lisinopril Current Medications: Medication Sig Comment ??? amLODIPine (NORVASC) 5 mg Tablet Take 1 tablet by mouth daily. ??? famotidine (PEPCID) 20 mg Tablet Take 20 mg by mouth 2 times daily. ??? levothyroxine (SYNTHROID) 75 mcg [...] take 1tablet, if systolic blood pressure is >180) ??? acetaminophen (TYLENOL) 500 mg Tablet Take 1 tablet by mouth every 6 hours. ??? aspirin 81 mg Tablet, Delayed Release (E.C.) Take 81 mg by mouth daily. ??? isosorbide dinitrate (ISORDIL) 20 mg Tablet Take 1 tablet by mouth 3 times daily. No current [facility]-ordered facility-administered medications on file. Assessment/plan: 1. There are no medication contraindications noted to proceed with transplant surgery. 2. Ms. Charlene Harmon was ranked moderate adherence to her medication regimen based on the Morisky 8 Item Adherence scale. 3. The need for jail medication and potential adjustment of medications post-transplant were discussed. A handout reviewing potential transplant medication side effects, dosing and pertinent issues was supplied as a reference. 4. Patient was provided with handout reviewing post-transplant discharge medication costs. 5. Will remain available for any medication questions KIT BRANDON RPH Pager #[phone] documented in this encounter Plan of Treatment Scheduled Procedures Name Priority Associated Diagnoses Date/Time EGD, UPPER GI ENDOSCOPY Gastroesophageal reflux disease, esophagitis presence not specifi ed documented as of this encounter Visit Diagnoses Diagnosis Pre-transplant evaluation for kidney tra nsplant Other specified pre-operative examinatio n documented in this encounter Care Teams Formula Room Worker Relationship Specialty Start Date End Date Sanjuanita Lee MD PCP - General 03/05/13 12/23/[address] [place] [address] documented as of this encounter
--- OUTSIDE RECORDS SUMMARY | 2022-02-22 23:31 | XMS_ITS | Encounter Summary ---
:1950 Author Organization [facility] [place] [address] Care Team Providers Name Role Phone Sanjuanita Lee MD Primary Care Provider Encounter Details Date Type Department Care Team Description 05/19/2019 Office Visit Solid Organ Transplant at [facility]-transplant evaluation [facility] [place] [address] Social History Tobacco Use Types Packs/Day [...] documented as of this encounter Progress Notes Nancy Lee, LANI - 05/19/2019 2:15 PM EST TRANSPLANT NUTRITION Initial Transplant Note This tech writer met with Charlene Harmon a 68 y.o. year old female on 05/19/2019 for nutrition assessment as part of kidney transplant work-up. Patient and her , Rodolfo, attended the Kidney Transplant Information session and then met with members of the transplant team. Past Medical History: Diagnosis Date ??? AAA (abdominal aortic aneurysm) [id number] angiogram; 3.2 cm infrarenal ??? Constipation ??? Dyslipidemia ??? Hypertension ??? Insomnia ??? Peripheral vascular disease ??? Renal artery stenosis R; per 2009 angiogram Diabetic History: no reported history Dialysis History: not yet on dialysis Food Record: B -> juice; has never had any breakfast; 2.5 hours after she gets up she very often has tst or Eng. Muffin; L -> s/w if she is in the mood; D -> meat, potato, veg. Snacks on chocolate, but otherwise not a big snacker. She drinks unsweetened Koolaid, a regular Cokeor Pepsi, water, juice; She dislikes milk; eats cheese, aged. She follows a very low sodium diet. They state that this is out of necessity because of numerous episodes of admission with fluid overload. She goes out to eat 2x/wk on average. Patient does the cooking. She does not lack energy at all. Tonyssyeda states that she goes nonstop from 8AM to 10PM. She has no deficits in functional status. Sheis independent. Social History Tobacco Use ??? Smoking status: Former Smoker Packs/day: 0.50 Years: 45.00 Pack years: 22.50 Types: Cigarettes Last attempt to quit: 2008 Years since quittin.0 ??? Smokeless tobacco: Never Used ??? Tobacco comment: smoked for ~45 years up to 1 ppd at [place], quit ~1999 Substance Use Topics ??? Alcohol use: Yes Comment: a few glasses of wine, rarely, 4 times a year Employment: Retired 11/24/2018 Household: Lives with her , Rodolfo Current Outpatient Medications Medication Sig Dispense Refill ??? amLODIPine (NORVASC) 5 mg Tablet Take 1 tablet by mouth daily. 90 tablet 1 ??? famotidine (PEPCID) 20 mg Tablet Take 20 mg by mouth 2 times daily. ??? isosorbide dinitrate (ISORDIL) 20 mg Tablet Take 1 tablet by mouth 3 times daily. 90 tablet 11 ??? levothyroxine (SYNTHROID) 75 mcg Tablet Take 1 tablet by mouth daily. 30 tablet 11 ??? carvedilol (COREG) 12.5 mg Tablet Take 1 tablet by mouth 2 times daily (with meals). 60 tablet 11 ??? hydrALAZINE (APRESOLINE) 25 mg Tablet Take 1 tablet by mouth 3 times daily. 90 tablet 11 ??? gabapentin (NEURONTIN) 100 mg Capsule Take 100 mg by mouth nightly. ??? atorvastatin (LIPITOR) 20 mg Tablet Take 1 tablet by mouth every evening. 90 tablet 3 ??? cloNIDine (CATAPRES) 0.1 mg Tablet Take 1 tablet by mouth every 8 hours as needed (Please take 1tablet, if systolic blood pressure is >200). (Patient taking differently: Take 0.1 mg by mouth every 8 hours as needed (Please take 1 tablet, if systolic blood pressure is >180).) 30 tablet 3 ??? acetaminophen (TYLENOL) 500 mg Tablet Take 1 tablet by mouth every 6 hours. 30 tablet 1 ??? aspirin 81 mg Tablet, Delayed Release (E.C.) Take 81 mg by mouth daily. No current facility-administered medications for this visit. Anthropometrics Height: 5' 04/28 (153.7cm) Weight: 91.8# (41.6kg) BMI: 17.6 IBW: 100# +/-10% (90-110#) Recent weight change: Patient's most usual body weight has been ~120-130# back to 2012; due to illness by 01/20/2014 she weighed 110#; by 09/06/2018 down to 94#; 09/10/2018 = 90#; by 10/03/2018 decreased to82# and 01/15/19 was 79#. She has now been gradually regaining this lost weight. % Change: patient had lost ~36% of her body weight between 2012-Dec 2018; 27% of her weight from 2013-present sinceshe has been gradually regaining weight. She is so concerned of becoming fluid overloaded again thatshe has very bland foods. Discussed various options for flavoring and meals. Urged pasta with sauteed veggies and add protein to this and a little Parm cheese. Told her about Mrs. Cardozo which is not a salt- sub containing KCl; it is a blend of various herbs and spices. Labs: 03/29/2019 -> Na+ 136 K+ 2.7 BUN 38 Creat 2.49 Gluc 75 Ca++ 9.0 Mg++ 0.83 Phos 3.7 Alb 3.9 PTH 42 Nutritional Concerns: No issues with nausea, vomiting; diarrhea occasionally but has powder for this. No constipation. Good appetite and feels it is improved but still finds most foods bland. Hopefully if she begins usingsome of the suggestions this tech writer made this will help. Expect that it is difficult to gain weight since she is very active all day along and basically eatsa small breakfast and the dinner meal. Functional status without deficits except that she did fail dairy department manager strength test (see frailty test results in scanned documents). Appears to have no visible muscle tissue wasting. Her low weight does place her at increased risk for other morbidities and mortality. For the amount of energy she appears to expend per both her and her , she is getting just enough for a very gradual gain in weight. Assessment/Plan: Patient's weight loss places her at increased nutritional risk for other morbidities and mortality. There are no visible signs of cachexia, however. There are no nutritional contraindications to transplant noted; assessed nutrition risk as low to moderate. Discussed diet modifications post kidney transplant and rationale. Provided printed information as reinforcement of our discussion: Potential Nutrition Issues after Transplant Due to medication Side Effects. Good comprehension verbalized: means for contact provided. Plan communicated to Drill Press Operator Helper for Documentation in patient's transplant medical record. Remain available for questions/concerns. documented in this encounter Plan of Treatment Scheduled Procedures Name Priority Associated Diagnoses Date/Time EGD, UPPER GI ENDOSCOPY Gastroesophageal reflux disease, esophagitis presence not specifi ed documented as of this encounter Visit Diagnoses Diagnosis Pre-transplant evaluation for kidney tra nsplant Other specified pre-operative examinatio n documented in this encounter Care Teams Touch Up Painter Hand Relationship Specialty Start Date End Date Sanjuanita Lee MD PCP - General 03/05/13 12/23/[address] [place] [address] documented as of this encounter
--- OUTSIDE RECORDS SUMMARY | 2022-02-22 23:31 | XMS_ITS | Encounter Summary ---
:1950 Author Organization [facility] [place] [address] Care Team Providers Name Role Phone Sanjuanita Lee MD Primary Care Provider Reason for Visit Consultation (Routine) - Closed Specialty Diagnoses / Procedures Referred By Contact Refer red To Contact Transplant Diagnoses CKD (chronic kidney disease) stage 4, GFR 15-29 ml/min Hypertension, unspecified type Tyron Kemp MD Chobanian, Michael C, Procedures TXP EVAL [facility] [place] [address] [facility] TRANSPLANT SURGERY [place], [place] [address] Phone: Fax: Referral ID Status Reason Start Date Expiration Date Visits V isits Requested Authorized [id number] Closed Consult, 03/31/2019 03/30/2020 1 1 Test & Treat Encounter Details Date Type Department Care Team Description 05/19/2019 Clinical Support Solid Organ Brad, Pre-transpl ant Transplant at [facility] Brent Hawkins MD [facility] [address] [place] [id number] SURGERY [phone] [place], [place] [address] Social History Tobacco Use Types [...] encounter Progress Notes Ilana Rivera RN - 05/19/2019 9:00 AM EST Patient: Charlene Harmon Additional Learners: Rodolfo Chang attended our 120 min multi disciplinary educational session in which we covered every aspect oftransplantation including but not limited to: ?? Comparison [...] stay Discharge and follow up Recipient expectations Charlene received our green recipient folder containing: ?? Welcome letter from Dr. Salinas A copy of the presentation Most recent center-specific SRTR data UNOS Talking about Transplantation booklets pamphlets including: -Kidney Allocation -Q&A for Transplant Candates about Multiple Listing and Waiting Time Transfer -Frequently Asked Questions about Kidney Transplant Evaluation and Listing -Facts and Figures -Living Donation: Information You Need to Know -What Every Patient Needs to Know Charlene was given many opportunities to ask questions to all members of the transplant team throughout the process. She acknowledges understanding of the presented materials, and reports that she will askany questions that arise. documented in this encounter Plan of Treatment Scheduled Procedures Name Priority Associated Diagnoses Date/Time EGD, UPPER GI ENDOSCOPY Gastroesophageal reflux disease, esophagitis presence not specifi ed Scheduled Referrals Name Type Priority Associated Diagnoses Order S chedule Referral to Outpatient Referral Routine CKD (chronic kidney O rdered: Transplant Services disease) stage 4, 08/2018 GFR 15-29 ml/min Hypertension, unspecified type documented as of this encounter Visit Diagnoses Diagnosis Pre-transplant evaluation for kidney tra nsplant Other specified pre-operative examinatio n documented in this encounter Care Teams Watch Guard Gate Relationship Specialty Start Date End Date Sanjuanita Lee MD PCP - General 03/05/13 12/23/[address] [place] [address] documented as of this encounter
--- OUTSIDE RECORDS SUMMARY | 2022-02-22 23:31 | XMS_ITS | Encounter Summary ---
:1950 Author Organization [facility] [place] [address] Care Team Providers Name Role Phone Sanjuanita Lee MD Primary Care Provider Reason for Referral Diagnostic Test (Routine) - Closed Specialty Diagnoses / Procedures Referred By Contact Refer red To Contact Radiology Diagnoses Stage 5 chronic kidney disease Pre-transplant evaluation for kidney transplant [facility] [address] [place] [address] Abdomen & [place] [address] [place] [address] Phone: Referral ID Status Reason Start Date Expiration Date Visits V isits Requested Authorized [id number] Closed Specialty 09/30/2019 03/27/2020 1 1 Service Requested Reason for Visit Diagnostic Test (Routine) - Closed Specialty Diagnoses / Procedures Referred By Contact Refer red To Contact Radiology Diagnoses Stage 5 chronic kidney disease Pre-transplant evaluation for kidney transplant [facility] [address] [place] [address] Procedures [address] Abdomen & [place] [address] [place] [address] Phone: Referral ID Status Reason Start Date Expiration Date Visits V isits Requested Authorized [id number] Closed Specialty 09/30/2019 03/27/2020 1 1 Service Requested Encounter Details Date Type Department Care Team Description 10/17/[address] [place] [facility] [place], Stage 5 chronic kidney disea se; [facility] Brent Hawkins MD Pre-transplant evaluation for kidney tra nsplant Drive [place], [place] [address] TRANSPLANT [phone] [place] [address] Social History Tobacco Use Types Packs/Day Years [...] dinitrate Take 1 tablet by 90 tablet 9 01/06/2020 (ISORDIL) 20 mg Tablet mouth 3 times daily. levothyroxine (SYNTHROID) Take 1 tablet by 30 tablet 12/2701/06/2020 75 mcg Tablet mouth daily. carvedilol (COREG) 12.5 Take 1 tablet by 60 tablet 201801/06/2020 mg Tablet mouth 2 times daily (with meals). hydrALAZINE (APRESOLINE) Take 1 tablet by 90 tablet 01/2001/06/2020 25 mg Tablet mouth 3 times daily. documented as of this encounter Plan of Treatment Scheduled Procedures Name Priority Associated Diagnoses Date/Time EGD, UPPER GI ENDOSCOPY Gastroesophageal reflux disease, esophagitis presence not specifi ed documented as of this encounter Procedures Procedure Name Priority Date/Time Associated Diagnosis Comme nts CT ABDOMEN AND Routine 10/17/2019 4:08 PM Stage 5 chronic Resu lts for this PELVIS WO CONTRAST EDT kidney diseas e procedure are in Pre-transplant the results evaluation for section. kidney transplant documented in this encounter Results CT Abdomen & Pelvis wo Contrast (10/17/2019 4:08 PM EDT) Anatomical Region Laterality Modality Abdomen, Pelvis Computed Tomography Specimen (Source) Anatomical Location Collection Method / Collectio n Time Received Time / Laterality Volume Impressions 10/17/2019 4:52 PM EDT 1. ??Thoracoabdominal aortic aneurysm as described above. Evaluation is limited given the absence of IV contrast. Aneury sm measures up to 4.8 cm in diameter. There is possible increased haziness or attenuation within the periaortic fat which raises the possibility of an infla mmatory component. Additionally nodular opacities abutting the abdominal aorta c ould represent irregularity of the aneurysm but also could represent abutti ng enlarged lymph nodes. 2. ??Unable to assess RIGHT renal artery bypass graft given the absence of IV contrast. 3. ??Cholelithiasis without cholecystiti s. 4. ??Nonobstructing LEFT renal calculus. Thank you for letting us participate in the care of this patient. For questions regarding this report, please contact e number below. ? Narrative 10/17/2019 4:52 PM EDT EXAMINATION: ??CT ABDOMEN AND PELVIS WO CONTRAST CLINICAL HISTORY: ??AAA, post repair Loo perico for graft access TECHNIQUE: Helical CT of the abdomen and pelvis was performed without contrast. COMPARISON: ??CT abdomen pelvis on 03/16 FINDINGS: The absence of intravenous contrast limi ts the evaluation of solid viscera and vasculature. Lower chest: ??Normal. Liver: Normal in attenuation and contour . Bile ducts: Nondilated. Gallbladder: Calcified gallstones withou t evidence of acute cholecystitis. Pancreas: Normal. Spleen: Normal. Adrenals: Normal. Kidneys: There is a 2-3 mm calcification in the region of the LEFT interpolar calyx which could represent a nonobstruc ting renal stone. In retrospect is not seen on the 2018 CT. The kidneys are sym metric and normal in size. No hydronephrosis is present. Urinary Bladder: Normal. Vasculature: As on previous exams, there is a thoracoabdominal aortic aneurysm which begins in the distal thoracic aort a and extends to the aortic bifurcation. The absence of IV contrast limits evalua tion. The distal thoracic aorta measures up to 3.8 cm in diameter on centerline r eformatted images in the infrarenal aneurysm component measures up to 4.8 cm in diameter. There is increased haziness within the surrounding retroper itoneal fat. The RIGHT iliac to renal artery graft is poorly visualized. There is no perigraft fluid collection or edema is seen within the limitations of this exam. Lymph Nodes: The absence of IV contrast limits the evaluation for pathologically enlarged lymph nodes although there does appear to be increased soft tissue density adjacent to the aorta in the inf rarenal segment (series 900 image 56) and in the retrocrural area (series 900 image 20). It is unclear whether this represents components of the aortic aneu rysm or enlarged periaortic lymph nodes. No pathologically enlarged mesenteric ly mph nodes are seen. Bowel: Nondilated, no wall thickening. Peritoneum and mesentery: No ascites, fr ee air, or loculated fluid collection. No mesenteric inflammation. Abdominal wall: Normal. Reproductive organs: The uterus is absen t. No adnexal mass is seen. Osseous structures: No suspicious osseou s lesions are present. Scattered mild degenerative changes are present through out the visualized thoracolumbar spine. Mild degenerative changes are present at the bilateral hips. Procedure Note Juan Thomas MD - 10/17/2019Form atting of this note might be different from the original. EXAMINATION: CT ABDOMEN AND PELVIS WO CO NTRAST CLINICAL HISTORY: AAA, post repair Looki ng for graft access TECHNIQUE: Helical CT of the abdomen and pelvis was performed without contrast. COMPARISON: CT abdomen pelvis on 018 FINDINGS: The absence of intravenous contrast limi ts the evaluation of solid viscera and vasculature. Lower chest: Normal. Liver: Normal in attenuation and contour . Bile ducts: Nondilated. Gallbladder: Calcified gallstones withou t evidence of acute cholecystitis. Pancreas: Normal. Spleen: Normal. Adrenals: Normal. Kidneys: There is a 2-3 mm calcification in the region of the LEFT interpolar calyx which could represent a nonobstruc ting renal stone. In retrospect is not seen on the 2018 CT. The kidneys are sym metric and normal in size. No hydronephrosis is present. Urinary Bladder: Normal. Vasculature: As on previous exams, there is a thoracoabdominal aortic aneurysm which begins in the distal thoracic aort a and extends to the aortic bifurcation. The absence of IV contrast limits evalua tion. The distal thoracic aorta measures up to 3.8 cm in diameter on centerline r eformatted images in the infrarenal aneurysm component measures up to 4.8 cm in diameter. There is increased haziness within the surrounding retroper itoneal fat. The RIGHT iliac to renal artery graft is poorly visualized. There is no perigraft fluid collection or edema is seen within the limitations of this exam. Lymph Nodes: The absence of IV contrast limits the evaluation for pathologically enlarged lymph nodes although there does appear to be increased soft tissue density adjacent to the aorta in the inf rarenal segment (series 900 image 56) and in the retrocrural area (series 900 image 20). It is unclear whether this represents components of the aortic aneu rysm or enlarged periaortic lymph nodes. No pathologically enlarged mesenteric ly mph nodes are seen. Bowel: Nondilated, no wall thickening. Peritoneum and mesentery: No ascites, fr ee air, or loculated fluid collection. No mesenteric inflammation. Abdominal wall: Normal. Reproductive organs: The uterus is absen t. No adnexal mass is seen. Osseous structures: No suspicious osseou s lesions are present. Scattered mild degenerative changes are present through out the visualized thoracolumbar spine. Mild degenerative changes are present at the bilateral hips. IMPRESSION 1. Thoracoabdominal aortic aneurysm as d escribed above. Evaluation is limited given the absence of IV contrast. Aneury sm measures up to 4.8 cm in diameter. There is possible increased haziness or attenuation within the periaortic fat which raises the possibility of an infla mmatory component. Additionally nodular opacities abutting the abdominal aorta c ould represent irregularity of the aneurysm but also could represent abutti ng enlarged lymph nodes. 2. Unable to assess RIGHT renal artery b ypass graft given the absence of IV contrast. 3. Cholelithiasis without cholecystitis. 4. Nonobstructing LEFT renal calculus. Thank you for letting us participate in the care of this patient. For questions regarding this report, please contact e number below. Brent Salinas MD IMG CT ORDERABLES documented in this encounter Visit Diagnoses Diagnosis Stage 5 chronic kidney disease Pre-transplant evaluation for kidney tra nsplant Other specified pre-operative examinatio n documented in this encounter Care Teams Seasonal Customer Service Associate Relationship Specialty Start Date End Date Sanjuanita Lee MD PCP - General 03/05/13 12/23/[address] [place] [address] documented as of this encounter
--- OUTSIDE RECORDS SUMMARY | 2022-02-22 23:31 | XMS_ITS | Encounter Summary ---
:1950 Author Organization [facility] Address [facility] 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 Initial Evaluation: Transplantation Date: 05/31/2019 Patient: Charlene Harmon Organ Type: Kidney History of Present Illness: Ms. Charlene Harmon is an 68 y.o. White Not nor female with past medical history of CRF secondary to HYPERTENSIVE NEPHROSCLEROSIS. Patient referred by Dr Kemp. Ms. Charlene Harmon present to our multidisciplinary Kidney transplant information session for evaluation and instruction. Patient start date for dialysis and number of days is (Not currently on dialysis). The dialysis center the patient received their treatment from is: (Not currently on dialysis). Reason for referral: Evaluation for Kidney Transplantation. He/she attended our 90 min multi disciplinary educational session in which we covered every aspect of transplantation including but not limited to: Comparison to dialysis Types of transplanted kidney [...] stay Discharge and follow up Recipient expectations Patient Active Problem List Diagnosis Code ??? [...] abuse S/p systolic CHF with pleural effusions Past Medical History: Diagnosis Date ??? AAA (abdominal aortic aneurysm) [id number] angiogram; 3.2 cm infrarenal ??? Constipation ??? Dyslipidemia ??? Hypertension ??? Insomnia ??? Peripheral vascular disease ??? Renal artery stenosis R; per 2010 angiogram [id number] all vaginal deliveries Past Surgical History: Procedure Laterality Date ??? HYSTERECTOMY ? ? PRO CATHETER 1ST ORDER W/WO ART PUNCT/FLUORO/S&I BILATERAL Bilateral 09/01/[address] (FIRST-ORDER), MAIN RENAL ART & ANY ACC, W/S&I; ANDREY (WRVU 6.99) performedby Regan Chen MD at [facility] MAIN OR ??? PRO UPPER GI ENDOSCOPY, DIAGNOSTIC 01/20/2014 EGD, UPPER GI ENDOSCOPY performed by Corby Cano MD at [facility] ENDOSCOPY ??? PRO UPPER GI ENDOSCOPY, DIAGNOSTIC N/A 07/28/2017 EGD, UPPER GI ENDOSCOPY performed by Snow Liao MD at [facility] ENDOSCOPY ??? PRO VEIN BYPASS GRAFT, AORTOILIOFEMORAL N/A 09/07/2018 @BYPASS GRAFT, AORTOILIAC W\ VEIN CONDUIT (WRVU 41.88) performed by Isac Moody MD at [facility] MAIN OR Family History Problem Relation Age of Onset ??? Hypertension Mother ??? Cervical Cancer Mother ??? Chronic Obstructive Pulmonary Disease Father ??? Hypertension Sister 2 adult children son [place] 50 yr, daughter Emanuel 48 yr Brother committed suicide, sister 80 yr healthy, Mother ovarian CA 68, father age 68 emphysema 3- grandchildren 22 yr old female, 16 yr old male, 13 yr old female Social History: Social History Tobacco Use ??? Smoking status: Former Smoker Packs/day: 0.50 Years: 45.00 Pack years: 22.50 Types: Cigarettes Last attempt to quit: 2008 Years since quittin.1 ??? Smokeless tobacco: Never Used ??? Tobacco comment: smoked for ~45 years up to 1 ppd at [facility], quit ~1999 Substance Use Topics ??? Alcohol use: Yes Comment: a few glasses of wine, rarely 4 times a year , 48 yr Age 72 diabetes No pets, illicit drugs, tattoos, piercings sexual encounters Maintenance Dialysis History Patient has no recorded history of maintenance dialysis. Vital Signs: There were no vitals taken for this visit. Estimated body mass index is 18.06 kg/m?? as calculated from the following: Height as of an earlier encounter on 05/19/19: 153.7 cm (5' 0.5). Weight as of 05/24/19: 42.6 kg (94 lb). Diagnosis: CKD stage 5, due to hypertensive nephrosclerosis Allergies: Patient has no known allergies. Immunizations: Most Recent Immunizations Administered Date(s) Administered ??? Hepatitis A Vaccine, Adult 05/18/2015 ??? Influenza Vaccine, Unspecified Formulation 02/01/2019 ??? Pneumococcal Polyvalent 23 05/18/2015 ??? Td Vaccine, Absorbed, PF, Adult 05/20/2011 Current Meds: Your Medications Accurate as of May 19, 2019 11:59 PM. If you have any questions, ask your nurse or doctor. Continued medications with new dosing Dose Details cloNIDine 0.1 mg Tab Commonly known as: Catapres Take 1 tablet by mouth every 8 hours as needed (Please take 1 tablet, if systolic blood pressure is >200). What changed: reasons to take this 0.1 mg Quantity: 30 tablet Refills: 3 Continued medications, unchanged Dose Details acetaminophen 500 [...] times daily (with meals). 12.5 mg Quantity: 60 tablet Refills: 11 famotidine 20 mg Tab Commonly known as: Pepcid Take 20 mg by mouth 2 times daily. 20 mg Refills: 0 gabapentin 100 mg Cap Commonly known as: Neurontin Take 100 mg by mouth nightly. 100 mg Refills: 0 hydrALAZINE 25 mg Tab Commonly known as: Apresoline Take 1 tablet by mouth 3 times daily. 25 mg Quantity: 90 tablet Refills: 11 isosorbide dinitrate 20 mg Tab Commonly known as: ISORDIL Take 1 tablet by mouth 3 times daily. 20 mg Quantity: 90 tablet Refills: 11 levothyroxine 75 mcg Tab Commonly known as: Synthroid Take 1 tablet by mouth daily. 75 mcg Quantity: 30 tablet Refills: 11 Labs: Lab Results Component Value Date WBC 11.2 (H) 05/24/2019 HCT 38.9 05/24/2019 HGB 12.8 05/24/2019 PLATELET 236 05/24/2019 K 3.7 05/24/2019 CREATININE 2.31 (H) 05/24/2019 BUN 31 (H) 05/24/2019 GLUCOSE 148 05/24/2019 PHOS 3.9 05/24/2019 MAGNESIUM 0.83 03/29/2019 LIPASE 47 01/08/2019 HA1C 5.5 10/03/2018 Urinalysis: Lab Results Component Value Date SPGRAVITYUA 1.009 10/04/2018 PHUADIP 7.0 10/04/2018 PROTEINUADIP 100 (A) 10/04/2018 GLUCOSEU 50 (A) 10/04/2018 KETONESUA Negative 10/04/2018 UROBILIUADIP Normal 10/04/2018 BLOODUADIP Negative 10/04/2018 NITRATEUA Negative 10/04/2018 LEUKOESTERUA Negative 10/04/2018 WBCUA 2 10/04/2018 RBCU 1 10/04/2018 BILIRUBINUA Negative 10/04/2018 Serologies (CMV and EBV): Lab Results Component Value Date CMVIGG Negative 05/24/2019 CMVIGM Negative 01/09/2019 EBVIGGAB Pos (A) 05/24/2019 EBVIGMAB Neg 05/24/2019 EBVINTERP Results suggest past infection. 05/24/2019 ROS: mild uremic signs and symptoms only, claudication of feet bilaterally improved after Ao-fem bypass on right Physical Exam: Constitutional: alert, ill appearing, but non-toxic, pale [...] small diminutive woman older than stated age Assessment: Ms. Charlene Harmon is a Satisfactory candidate for Kidney transplantation. Advantages and disadvantagesof transplantation were reviewed. Discussed the potential complications, particularly in regard to the medical complications that might occur after receiving a transplant. I addressed issues of follow-up care and the need for lifelong compliance with medical treatment plan. Lastly I discussed the needfor immunosuppressive therapy and the risk associated with this treatment. Functional Status: 70% Cares for self: unable to carry on normal activity or active work Socioeconomic Status: Working for Income: No Primary Insurance: Payor: MEDICARE / Plan: MEDICARE PART A & B / Product Type: *No Product type*/ [place] Citizen: yes Recommendations: I discussed with Ms. Charlene Harmon about her Kidney organ failure and the need for renal replacement therapy. We discussed the option of transplantation as well as the advantages of a living donor versusdeceased donor in regards to renal transplantation. The following testing should be obtained: Needs ABIs/TBIs, if abnl CT angio NeedsEKG Needs Dobutamine Stress Test Needs Cardiac Consult Needs Chest X-Ray Needs PFT Needs Dental Exam Needs Vaccines: Flu, Pneumovax, Hep B Series, Tetanus, Shingles Needs Pap Smear Needs Mammogram Needs Colonoscopy Needs CT Abdomen/Pelvis Needs CT Chest Needs Serologies Needs Tissue Typing Needs Eye Exam I surmise she appears to have fair understanding of her medical condition and the transplant process. Discussion with the patient and/or family concerned the following: ? Diagnostic results or recommended studies ? Prognosis; ? Risks and benefits of management; ? Instructions for management; ? Compliance with treatment; ? Risk factor reduction; ? Patient and family education. Total time 85 of 90 minutes in direct face to face veterans' counselor. BRNET SALINAS MD documented in this encounter Plan [...] n documented in this encounter Care Teams Dairy Farm Operator Relationship Specialty Start Date End Date Sanjuanita Lee MD PCP - General 03/05/13 12/23/[address] [place] [address] documented as of this encounter
--- OUTSIDE RECORDS SUMMARY | 2022-02-22 23:31 | XMS_ITS | Encounter Summary ---
:1950 Author Organization [facility] [place] [address] Care Team Providers Name Role Phone Sanjuanita Lee MD Primary Care Provider Encounter Details Date Type Department Care Team Description 05/19/2019 Office Visit Solid Organ Transplant at [facility] organ transplant [facility] [place] [address] Social History Tobacco Use Types Packs/Day [...] documented as of this encounter Progress Notes Mary Jameson - 05/19/2019 1:45 PM EST Transplant Agriculture Instructor Note: Met with patient and her during the Kidney Class appointment to review medical and pharmacy benefits for transplant services. She is covered by Medicare A, B, and D, as well as [place] secondary through her 's skilled nursing from the [facility]. Thepart D plan, [employer], is partially funded by the skilled nursing plan, therefore there is no coverage gap. We reviewed the post transplant medication list in detail, including estimated copays for each medication - A copy of this list was provided to the patient. They are facing approximately $241.66 per month in post transplant medication costs. The state the ability to manage this cost. This plan has a $50.00 deductible each April AND has a max annual out of pocket of $750.00 for preferred drugs and $1350.00 for non-preferred drugs. If this max is met, prescriptions will be covered in full for the remainder of the calendar year. Financial Clearance: Cleared for living and donor kidney transplant. Coverage Review: Primary Insurance: Medicare AB Secondary Plan: [place]BC [facility] plan Pharmacy Carrier: [employer] part D, funded by [facility] Res[employer]Model Phone: Drug Dose/Form # for 30 Days Copay 30 Day Supply PA Required? Mail Order Available Copay 90 Day Supply Prograf 1mg cap 180 caps $70 $ Cellcept 250 mg cap 180 caps $70 $ Myfortic 360 mg tab 120 tabs $ $ Bactrim SS tab 30 tabs $2.00 $ Mepron 750 mg/5ml 150 ml $ $ Diltiazem CD 120 mg tablet 30 tabs $1.91 $ K Phos Original 500 mg tab 120 tabs $11.81 $ Magnesium Gluconate 500 mg tab 120 tabs $10-$25 OVER THE COUNTER, FERNANDEZ AT LOCAL PHARMACY $ Pantoprazole 40 mg cap 30 tabs $0.46 $ Nystatin 100K units/ml 600 ml $4.51 $ Valcyte 450 mg tab 60 tabs $63.57 $ Valtrex 500 mg tab 60 tabs $7.40 $ $241.66 documented in this encounter Plan of Treatment Scheduled Procedures Name Priority Associated Diagnoses Date/Time EGD, UPPER GI ENDOSCOPY Gastroesophageal reflux disease, esophagitis presence not specifi ed documented as of this encounter Visit Diagnoses Diagnosis Awaiting organ transplant status documented in this encounter Care Teams Colorer Machine Relationship Specialty Start Date End Date Sanjuanita Lee MD PCP - General 03/05/13 12/23/[address] [place] [address] documented as of this encounter
--- OUTSIDE RECORDS SUMMARY | 2022-02-22 23:31 | XMS_ITS | Encounter Summary ---
:1950 Author Organization [facility] [place] [address] Care Team Providers Name Role Phone Sanjuanita Lee MD Primary Care Provider Encounter Details Date Type Department Care Team Description 05/19/2019 Orders Only Nephrology Hypertension Rubén, CKD (chronic kidney at [facility] Velasquez disease) stage 5, GFR [facility] D rive less than 15 ml/[place] [address] Social History Tobacco Use Types Packs/Day [...] documented as of this encounter Results (ABNORMAL) Iron and TIBC (05/24/2019 1:16 PM EST) athologist Signature Iron 48 30 - 150 [facility] mcg/dL [facility] TIBC 298 250 - 450 [facility] mcg/dL [facility] Iron Saturation 16 (L) 20 - 50 % [facility] Specimen Anatomical Collection Method Collection Time Receive d Time (Source) Location / / Volume Laterality Blood specimen 05/24/2019 1:16 PM 020 1:22 (specimen) EST PM EST Resulting Agency Comment Spec In Lab Mainor Doyle MD CHEMISTRY ORDERABLES Performing Organization Address City/State/[place] [address] Ferritin (05/24/2019 1:16 PM EST) athologist Signature Ferritin 81 30 - 400 [facility] ng/mL [facility] Comment: Pediatric reference ranges not verified at [facility], interpret with caution. Reference ranges for females [...] Organization Address City/State/[place] [address] PTH (05/24/2019 1:16 PM EST) athologist Signature PTH 45 15 - 65 [facility] pg/mL [facility] Specimen Anatomical Collection Method Collection Time Receive d Time (Source) Location / / Volume Laterality Blood specimen 05/24/2019 1:16 PM 020 1:22 (specimen) EST PM EST Resulting Agency Comment Spec In Lab Mainor Doyle MD CHEMISTRY ORDERABLES Performing Organization Address City/State/[place] [address] (ABNORMAL) Uric acid (05/24/2019 1:16 PM EST) athologist Signature Uric Acid 7.0 (H) 2.5 - 6.5 [place] mg/dL [facility] Specimen Anatomical Collection Method Collection Time Receive d Time (Source) Location / / Volume Laterality Blood specimen 05/24/2019 1:16 PM 020 1:22 (specimen) EST PM EST Resulting Agency Comment Spec In Lab Mainor Doyle MD CHEMISTRY ORDERABLES Performing Organization Address City/[facility]/ZIP Code Phon e Number [address] Albumin Level (05/24/2019 1:16 PM EST) athologist Signature Albumin 4.2 3.2 - 5.2 [facility] gm/dL [facility] Specimen Anatomical Collection Method Collection Time Receive d Time (Source) Location / / Volume Laterality Blood specimen 05/24/2019 1:16 PM 020 1:22 (specimen) EST PM EST Resulting Agency Comment Spec In Lab Mainor Doyle MD CHEMISTRY ORDERABLES Performing Organization Address City/[facility]/ZIP Code Phon e Number [address] Phosphorus (05/24/2019 1:16 PM EST) athologist Signature Phosphorus 3.9 2.5 - 4.5 [facility] mg/dL [facility] Specimen Anatomical Collection Method Collection Time Receive d Time (Source) Location / / Volume Laterality Blood specimen 05/24/2019 1:16 PM 020 1:22 (specimen) EST PM EST Resulting Agency Comment Spec In Lab Mainor Doyle MD CHEMISTRY ORDERABLES Performing Organization Address City/[facility]/ZIP [facility] Phon e Number [address] (ABNORMAL) Basic Metabolic Panel (non-fasting) (05/24/2019 1:16 PM EST) athologist Signature Glucose Lvl 148 65 - 199 [facility] mg/dL [facility] Comment: Diabetes: >=200 mg/dL plus symp toms BUN 31 (H) 8 - 18 mg/dL [facility] Creatinine 2.31 (H) 0.70 - 1.20 mg/dL [facility] Sodium 139 135 - 145 mmol/L [facility] Potassium 3.7 3.5 - 5.0 mmol/L [facility] Comment: Please note: ??Patients with WBC >100,00 0 may have falsely elevated Potassium levels. ??For accurate Potassium quantif ication in these patients send serum separator tube (gold top) for subsequent determinations. ??Contact the Clinical Chemistry Laboratory if there are any qu estions. Chloride 97 (L) 98 - 107 mmol/L [facility] CO2 26 22 - 31 mmol/L [facility] Anion Gap 16 (H) 5 - 15 mmol/L [facility] Calcium 9.3 8.5 - 10.5 mg/dL [facility] Estimated GFR 21 (L) >=60 mL/min/1.73 m?? [facility] Comment: The eGFR was calculated using the CKD-EP I equation. As with all creatinine based estimates of kidney function, eGFR values calculated with the CKD-EPI equation are not accurate in patients wi th acute kidney failure, extremes of body mass or the acutely ill. http://[employer] eGFR 24 (L) >=60 mL/min/1.73 m?? [facility] Comment: The eGFR was calculated using the CKD-EP I equation. As with all creatinine based estimates of kidney function, eGFR values calculated with the CKD-EPI equation are not accurate in patients wi th acute kidney failure, extremes of body mass or the acutely ill. http://[employer]/[facility] Specimen Anatomical Collection Method Collection Time Receive d Time (Source) Location / / Volume Laterality Blood specimen 05/24/2019 1:16 PM 020 1:22 (specimen) EST PM EST Resulting Agency Comment Spec In Lab Mainor Doyle MD CHEMISTRY ORDERABLES Performing Organization Address City/State/[place] [address] (ABNORMAL) Protein/Creatinine Ratio, urine (05/24/2019 1:09 PM EST) P athologist Signature U Creatinine 34 mg/dL [facility] U Protein Ran 77 (H) 0 - 12 [facility] mg/dL [facility] Prot/Cre Ratio 2.3 ratio [facility] Specimen Anatomical Collection Method Collection Time Receive d Time (Source) Location / / Volume Laterality Urine specimen 05/24/2019 1:09 PM 020 1:23 (specimen) EST PM EST Resulting Agency Comment Spec In Lab Mainor Doyle MD URINE ORDERABLES Performing Organization Address City/State/ZIP Code Phon e Number [place] [phone] documented in this encounter Visit Diagnoses Diagnosis CKD (chronic kidney disease) stage 5, GF R less than 15 ml/min Chronic kidney disease, Stage V documented in this encounter Care Teams Gas Pump Attendant Relationship Specialty Start Date End Date Sanjuanita Lee MD PCP - General 03/05/13 12/23/[address] [place] [address] documented as of this encounter
--- OUTSIDE RECORDS SUMMARY | 2022-02-22 23:31 | XMS_ITS | Encounter Summary ---
:1950 Author Organization [facility] [place] [address] Care Team Providers Name Role Phone Sanjuanita Lee MD Primary Care Provider Encounter Details Date Type Department Care Team Description 09/29/2019 Telephone Solid Organ Transpla nt at [facility] Ilana Rivera, [place] [address] Social History Tobacco Use Types Packs/Day [...] this encounter Miscellaneous Notes Telephone Encounter - Ilana Rivera, RN - 09/29/2019 9:40 AM EDT I spoke with Charlene and her regarding the cosytropin IM injection. I explained that the medication is an IM injection given similarly to a vaccine and that it is mixed with 1 mL of normal saline.I explained that I had spoken with a pharmacist and there is nothing else it can be mixed with. I explained why we wanted to complete the test and that it needed to be completed for listing on the transplant list. Charlene and her stated that she would not agree to the injection due to her reaction to sodium.They stated that last December she was admitted to the ICU after an iron infusion because of her reaction to the sodium in the infusion. They asked that we speak with her cloth handler, Dr. Kemp, about the situation. I explained that I would reach out to him and would call them back. Charlene and her verbalized understanding. documented in this encounter Plan of Treatment Scheduled Procedures Name Priority Associated Diagnoses Date/Time EGD, UPPER GI ENDOSCOPY Gastroesophageal reflux disease, esophagitis presence not specifi ed documented as of this encounter Visit Diagnoses Not on filedocumented in this encounter Care Teams Architectural Draftsman Relationship Specialty Start Date End Date Sanjuanita Lee MD PCP - General 03/05/13 12/23/[address] [place] [address] documented as of this encounter
--- OUTSIDE RECORDS SUMMARY | 2022-02-22 23:31 | XMS_ITS | Encounter Summary ---
:1950 Author Organization [facility] [place] [address] Care Team Providers Name Role Phone Sanjuanita eLe MD Primary Care Provider Reason for Referral Consultation (Routine) - Closed Specialty Diagnoses / Procedures Referred By Contact Refer red To Contact Transplant Diagnoses CKD (chronic kidney disease) stage 4, GFR 15-29 ml/min Hypertension, unspecified type Tyron Kemp MD Chobanian, Michael C, Procedures TXP EVAL [facility] [place] [address] [facility] TRANS[facility] [place], [place] [address] Phone: Fax: Referral ID Status Reason Start Date Expiration Date Visits V isits Requested Authorized [id number] Closed Consult, 03/31/2019 03/30/2020 1 1 Test & Treat Encounter Details Date Type Department Care Team Description 03/29/2019 Office Visit Nephrology Hypertension Tyron Kemp MD [facility] [place] [address] Hypokalemia; at [facility] [place] Champ Valentine MBBS [facility] [place]ROLOG[place] [address] CKD (chronic kidney disease) stage 4, GF R 15-29 ml/min; [facility] Hypertens ion, unspecified type; Drive Anemia in stage 4 chronic ki dney disease; [place] [id number] Metabolic acidosis [phone] Social History Tobacco Use Types Packs/Day Years [...] Sign Reading Time Taken Comments Blood Pressure 132/64 03/29/2019 2:13 PM EST Pulse 58 03/29/2019 2:13 PM EST Temperature - - Respiratory Rate - - Oxygen Saturation - - Inhaled Oxygen Concentration - - Weight 36.7 kg (81 lb) 03/29/2019 2:13 PM EST Height 152.4 cm (5') 03/29/2019 2:13 PM EST Body Mass Index 15.82 03/29/2019 2:13 PM EST documented in this encounter Progress Notes Tyron Kemp MD - 03/29/2019 2:30 PM EST I saw and discussed the patient with Dr. Valentine and I agree with the assessment and plan in his note. 68-year-old female with history of renal artery stenosis status post bypass and CKD stage IV presents to follow-up in renal clinic. Patient presents her blood pressure data for review and there is a noticeable up trend in readings following her using a new monitor. She is agreeable to have this new instrument calibrated. Renal function is stable with a GFR of 19 mL/min. We will refer her for transplant evaluation. Patient did have hospitalization in interval due to volume overload and has been on daily Lasix since then. She reports tolerating this. Patient does have critical potassium level 2.7 mmol/L. Advised patient to best plan would be to evaluate with EKG in ED setting, she defers this. We will to treat her with oral KCL and will check magnesium and replete if necessary. Hypokalemia likelysecondary to Lasix use, however could represent some secondary aldosterone action. If persistent could consider addition of spironolactone/amiliroide, however patient has been very sensitive to medication adjustments and again defers this consideration. We plan to check her potassium level again in 3 days. Anel Oliver LPN - 03/29/2019 2:30 PM EST Per order Dr Valentine, patient given 40 Meq Potassium Chloride PO, Xs one at [address] Valentine also ordered stat EKG, which was done here at clinic. Champ Stevenson MBBS - 03/29/2019 2:30 PM EST HYPERTENSION/ NEPHROLOGY CLININC FOLLOW UP PATIENT: Charlene Harmon : 1950 HPI: 68 y.o. female with PMHx significant for CKD stage G4/A3 due to long standing uncontrolled HTN and renal ischemia caused by b/l renal artery , ?she has??HFpEF (EF 54% on 08/2018 TTE), bilateral renal artery stenosis (>60% occlusion bilaterally in 01/2018, progression of R stenosis to occlusion and persistent L stenosis on most recent duplex in 08/2018), 3.7 cm AAA, acute HBV, HTN, HLD, former tobacco use (45 years up to 1ppd at max, quit 10 years ago),??who was admitted in [facility] [place]in August??for??hypertensive urgency and??flash pulmonary edema requiring BIPAP and ICU admission. She had renal artery angiogram on 09/01/18??which showed??widely patent left main renal artery (very mild stenosis at origin but thereafter??widely patent) .??Designated right renal angiogram showed occluded right renal artery at origin with reconstitution ~1 cmfrom origin at branch point, several collateral vessels in area. She had GAEL during the admission with highest creatinine of 2.89 mg/dl . She??underwent?Right external iliac to right renal artery bypass with reversed right greater saphenous vein??on 09/07/18 She was seen in Nephrology CKD clinic on 02/14/19 when serum creatinine was 2.62 mg/dl . Reportedly she was admitted in OSH from 02/16 to 02/19 for fluid overload, since then she has been on lasix 20 mg daily. Monitors BP at home, generally range from 123-155 mmhg, since Mid February when she changed cuff to pediatric size BP runs mostly 150-178 mmhg . Did not have syncopal events for many months. Denied leg swelling, SOB and problems in urination Past Medical History: Diagnosis Date ??? AAA (abdominal aortic aneurysm) [id number] angiogram; 3.2 cm infrarenal ??? Constipation ??? Dyslipidemia ??? Hypertension ??? Insomnia ??? Peripheral vascular disease ??? Renal artery stenosis R; per 2010 angiogram Past Surgical History: Procedure Laterality Date ??? HYSTERECTOMY ? ? PRO CATHETER 1ST ORDER W/WO ART PUNCT/FLUORO/S&I BILATERAL Bilateral 09/01/[address] (FIRST-ORDER), MAIN RENAL ART & ANY ACC, W/S&I; ANDREY (WRVU 6.99) performedby Regan Chen MD at [facility] MAIN OR ??? PRO UPPER GI ENDOSCOPY, DIAGNOSTIC 01/20/2014 EGD, UPPER GI ENDOSCOPY performed by Corby Cano MD at [facility] ENDOSCOPY ??? PRO UPPER GI ENDOSCOPY, DIAGNOSTIC N/A 07/28/2017 EGD, UPPER GI ENDOSCOPY performed by Snow Liao MD at [facility] ENDOSCOPY ??? PRO VEIN BYPASS GRAFT, AORTOILIOFEMORAL N/A 09/07/2018 @BYPASS GRAFT, AORTOILIAC W\ VEIN CONDUIT (WRVU 41.88) performed by Isac Moody MD at [facility] MAIN OR Family History Problem Relation Age of Onset ??? Hypertension Mother ??? Cervical Cancer Mother ??? Chronic Obstructive Pulmonary Disease Father ??? Hypertension Sister Social History- lives with Does not smoke and drink alochol Outpatient medications: Current Outpatient Medications on File Prior to Visit Medication Sig Dispense Refill ??? amLODIPine (NORVASC) [...] medications on file prior to visit. MEDICATIONS: Allergies Allergen Reactions ??? Lisinopril Rise in creatinine ROS: Constitutional - No fevers, chills, weight loss Skin - No rash or itchy skin HEENT - No headaches, visual changes Resp - No cough, shortness of breath CV - No chest pain, leg swelling, difficulty breathing lying flat GI - No nausea, vomiting,change in bowel habits/abdominal pain - No change in urine output. No pain urinating or blood in urine. Neuro - No weakness. No numbness/ tingling in extremities. PHYSICAL EXAM: Last value Range last 24 hrs Temperature Temp: -- Heart Rate Heart Rate: 58 Heart Rate: -- Blood Pressure BP: 132/64 BP: -- Respiratory Rate Resp: -- SpO2 SpO2: -- Appearance - Alert, Comfortable. Skin - No exanthem. HEENT - Sclera white. Mucous membranes moist. Chest-Lungs clear to ausculatation w/o wheezes/ rhonchi/ crackles. Heart - S1 and S2 clear w/o murmur, gallop, or rub. JVP not elevated. Abd - Soft. + BS. No bruit. Non tender. Ext - Warm. No cyanosis. No dependent edema. Neuro - No asterixis. STUDIES: Labs: CBC: Recent Labs 03/29/19 1345 02/14/1957 01/20/19 042 WBC 7.9 8.6 7.0 HGB 11.1* 9.8* 12.7 PLATELET 228 307 271 Chemistry: Recent Labs 03/29/19 1345 02/14/1957 01/20/19 04201/08/19 0004 NA 136 134* 125* < > 131* K 2.7* 4.0 4.0 < > 4.2 CL 99 100 83* < > 93* CO2 21* 20* 25 < > 20* BUN 38* 25* 74* < > 59* CREATININE 2.49* 2.62* 3.02* < > 3.42* GLUCOSE 75 121 -- -- 121 < > = values in this interval not displayed. Recent Labs 03/29/19 1345 02/14/19 0957 01/20/19 0429 01/19/19 0518 01/04/19 1252 CALCIUM 9.0 8.9 9.8 9.1 < > 9.7 MAGNESIUM 0.83 -- 1.01 0.98 < > -- PHOS 3.7 3.2 -- -- -- 4.0 < > = values in this interval not displayed. LFT's: Recent Labs 03/29/19 1345 02/14/19 0957 01/07/19 2159 10/03/18 0329 06/14/18 1022 BILITOT -- -- 0.7 -- <0.2* 0.4 BILIDIR -- -- Not Perf -- 0.1 -- ALBUMIN 3.9 3.7 4.1 < > 3.4 3.9 ALKPHOS -- -- 118* -- 72 57 ALT -- -- 33* -- 13 11 AST -- -- Not Perf -- 19 < > = values in this interval not displayed. IMPRESSION/ RECOMMENDATIONS: She is?68 y.o.??female??with PMHx significant for ??CKD stage 3GB/4 9( with baseline creatinine of 1.9-2 mg/dl ) due to long standing uncontrolled HTN and renal ischemiacaused by b/l renal artery. She underwent right renal artery bypass surgery in the past . She has multiple admission for fluid overload and fluctuation in BP. Renal functions has been stable for last few months. ?? # Hemodynamics-?? Clinically euvolemic , so for time being continue lasix 20 mg daily - Low salt diet - BP has been more stable lately with minimal fluctuation but still not at target range. Advise to calibrate her cuff with hospital/or PCP office's one - continue coreg 12.5 mg bid and hydralazine 25 mg TID and Isordil 30 mg TID, amlodipine 5 mg at bedtime . Continue to monitor BP at home ?# CKD stage G4: ??Renal functions is stable with slight improvement in serum creatinine as compared to last visit . ?? - Avoid NSAIDS, contrast and nephrotoxin if possible. - Dose medication for current eGFR - as per her request we will refer for transplant evaluation # Hypokalemia- serum potassium level is 2.7 EKG consistent with sinus bradycardia , she had similar EKG in multiple occassion in the past - does not have any symptoms. She refused to go to ED for further monitoring in house - 40 Meq KCL given in clinic - she will take 40 meq KCL daily as long as she is on lasix - Magnesium level is normal - she will check BMP in 304 days for follow up ?? # Acid/Base balance-??Metabolic acidosis with serum bicarbonate 21 meq/dl Did not tolerate lowest dose of sodium bicarbonate in the past due o fluid retention and pulmonary edema ?? # Anemia- Hemoglobin is??11.1 g/dl She was iron deficient but did not tolerate iv iron infusion and oral ferrous sulfate ?? # BMD- Latest serum calcium??, PTH??and phosphorous is within normal limit ?? Follow up in Nephrology clinic in 2 months Thanks for letting us participate in the care of this patient. Seen and Discussed w/ Dr. Viridiana Valentine Nephrology Fellow documented in this encounter Plan of Treatment Scheduled Procedures Name Priority Associated Diagnoses Date/Time EGD, UPPER GI ENDOSCOPY Gastroesophageal reflux disease, esophagitis presence not specifi ed Scheduled Referrals Name Type Priority Associated Diagnoses Order S chedule Referral to Outpatient Referral Routine CKD (chronic kidney O rdered: Transplant Services disease) stage 4, 08/2018 GFR 15-29 ml/min Hypertension, unspecified type documented as of this encounter Procedures Procedure Name Priority Date/Time Associated Diagnosis Comme nts EKG 12-LEAD Routine 03/29/2019 3:19 PM Hypokalemia Results f or this EST procedure are i n the results section . documented in this encounter Results EKG 12 Lead (03/29/2019 3:19 PM EST) Component Value Ref Range Test Analysis Performed Pathologis t Method Time At Signature Ventricular rate 54 BPM MUSE SYSTEM Atrial Rate 54 BPM MUSE SYSTEM P-R Interval 134 ms MUSE SYSTEM QRS Duration 90 ms MUSE SYSTEM Q-T Interval 486 ms MUSE SYSTEM QTC Calculated 460 ms MUSE SYSTEM (Bezet) Calculated P [place] 69 degrees MUSE SYSTEM Calculated R [place] 43 degrees MUSE SYSTEM Calculated T [place] 75 degrees MUSE SYSTEM INTERPRETATION Sinus bradycardia MUSE SY STEM Possible Left atrial enlargement Left ventricular hypertrophy with repolarization abnormality Abnormal ECG When compared with ECG of 20-JAN-2019 07:10, Nonspecific T wave abnormality no longer evident in Inferior leads T wave inversion now evident in Anterior leads Confirmed by Annabella Holman ([email or web address]) on 03/30/2019 6:59:22 P M Specimen Anatomical Collection Method Collection Time Receive d Time (Source) Location / / Volume Laterality 03/29/2019 3:19 PM 9 6:59 EST PM EST Tyron Kemp MD ECG ORDERABLES Performing Organization Address City/State/ZIP Code Phon e Number MUSE SYSTEM documented in this encounter Visit Diagnoses Diagnosis Hypokalemia Hypopotassemia CKD (chronic kidney disease) stage 4, GF R 15-29 ml/min Chronic kidney disease, Stage IV (severe ) Hypertension, unspecified type Anemia in stage 4 chronic kidney disease Metabolic acidosis Acidosis documented in this encounter Administered Medications Inactive Administered Medications - up to 3 most recent administrations Medication Order MAR Action Action Date Dose Rate Site potassium chloride (KLOR-CON) Given 03/29/2019 3:00 PM EST 40 mE q packet 40 mEq 40 mEq, Oral, ONCE, 1 dose, On Thu03/29/19 at 1600, Routine documented in this encounter Care Teams Robot Programmer Relationship Specialty Start Date End Date Sanjuanita Lee MD PCP - General 03/05/13 12/23/[address] [place] [address] documented as of this encounter
--- OUTSIDE RECORDS SUMMARY | 2022-02-22 23:31 | XMS_ITS | Encounter Summary ---
:1950 Author Organization [facility] [place] [address] Care Team Providers Name Role Phone Sanjuanita Lee MD Primary Care Provider Encounter Details Date Type Department Care Team Description 08/30/2019 Telephone Nephrology Hypertension at [facility] [place], [facility] [place] [address] Social History Tobacco Use Types Packs/Day [...] Telephone Encounter - Eva Montana RN - 08/30/2019 3:52 PM EDT S/O: Call to Jami to discuss routine labs planned for July. Due to social distancing, Jami has not had labs done. Jami reports feeling well with no concerns. P: Requests to defer labs at this point, but will have drawn if any change in symptoms or if she hasto have any other labs done documented in this encounter Plan of Treatment Scheduled Procedures Name Priority Associated Diagnoses Date/Time EGD, UPPER GI ENDOSCOPY Gastroesophageal reflux disease, esophagitis presence not specifi ed documented as of this encounter Visit Diagnoses Not on filedocumented in this encounter Care Teams Enrolled Nurse Relationship Specialty Start Date End Date Sanjuanita Lee MD PCP - General 03/05/13 12/23/[address] [place] [address] documented as of this encounter
--- OUTSIDE RECORDS SUMMARY | 2022-02-22 23:31 | XMS_ITS | Encounter Summary ---
:1950 [place] [address] Care Team Providers Name Role Phone Sanjuanita Lee MD Primary Care Provider Encounter Details Date Type Department Care Team Description 02/25/2019 Telephone Cardiology at [facility] Dax Burnett MD [address] [place] [address] [place] [address] [place] [address] [phone] (Wo rk) Social History Tobacco Use Types [...] this encounter Miscellaneous Notes Telephone Encounter - Rhea Schilling - 02/25/2019 8:21 AM EDT See below Telephone Encounter - Rhea Schilling - 02/25/2019 8:19 AM EDT Charlene called saying she will be seeing Cut In Worker at [facility] in [facility] documented in this encounter Plan of Treatment Scheduled Procedures Name Priority Associated Diagnoses Date/Time EGD, UPPER GI ENDOSCOPY Gastroesophageal reflux disease, esophagitis presence not specifi ed documented as of this encounter Visit Diagnoses Not on filedocumented in this encounter Care Teams Soft Crab Shedder Relationship Specialty Start Date End Date Sanjuanita Lee MD PCP - General 03/05/13 12/23/[address] [place] [address] documented as of this encounter
--- OUTSIDE RECORDS SUMMARY | 2022-02-22 23:31 | XMS_ITS | Encounter Summary ---
:1950 [place] [address] Care Team Providers Name Role Phone Sanjuanita Lee MD Primary Care Provider Encounter Details Date Type Department Care Team Description 10/05/2019 Tech Visit Vascular Lab at [facility] Viviane Merida, [place] [address] Social History Tobacco Use Types Packs/Day [...] on filedocumented in this encounter Care Teams Patent Attorney Relationship Specialty Start Date End Date Snajuanita Lee MD PCP - General 03/05/13 12/23/21 [address] [place] [address] documented as of this encounter
--- OUTSIDE RECORDS SUMMARY | 2022-02-22 23:31 | XMS_ITS | Encounter Summary ---
:1950 Author Organization [facility] [address] Care Team Providers Name Role Phone Sanjuanita Lee MD Primary Care Provider Encounter Details Date Type Department Care Team Description 07/05/2019 Telephone Pulmonology at [facility] Rupinder Vieira, [place] [address] Social History Tobacco Use Types Packs/Day [...] on filedocumented in this encounter Care Teams [place] Support Worker Relationship Specialty Start Date End Date Sanjuanita Lee MD PCP - General 03/05/13 12/23/21 [place] [address] documented as of this encounter
--- OUTSIDE RECORDS SUMMARY | 2022-02-22 23:31 | XMS_ITS | Encounter Summary ---
:1950 Author Organization [facility] [place] [address] Care Team Providers Name Role Phone Sanjuanita Lee MD Primary Care Provider Encounter Details Date Type Department Care Team Description 10/04/2019 Telephone Solid Organ Transpla nt at [facility] Ilana Rivera, [place] [address] Social History Tobacco Use Types Packs/Day [...] Telephone Encounter - Ilana Rivera, RN - 10/04/2019 4:33 PM EDT I spoke with Charlene and her regarding the cosyntropin IM injection. I explained that the medication is an IM injection and would contain less than 0.2 milliequivalent of sodium. The sodium bicarbshe took has 7.8 milliequivalent. I explained that per Dr. Salinas the test needed to be completedfor listing on the transplant list. Charlene verbalized understanding. documented in this encounter Plan of Treatment Scheduled Procedures Name Priority Associated Diagnoses Date/Time EGD, UPPER GI ENDOSCOPY Gastroesophageal reflux disease, esophagitis presence not specifi ed documented as of this encounter Visit Diagnoses Not on filedocumented in this encounter Care Teams Tester Waste Disposal Leakage Relationship Specialty Start Date End Date Sanjuanita Lee MD PCP - General 03/05/13 12/23/[address] [place] [address] documented as of this encounter
--- OUTSIDE RECORDS SUMMARY | 2022-02-22 23:31 | XMS_ITS | Encounter Summary ---
:1950 Author Organization [facility] [place] [address] Care Team Providers Name Role Phone Sanjuanita Lee MD Primary Care Provider Reason for Referral Diagnostic Test (Routine) - Closed Specialty Diagnoses / Procedures Referred By Contact Refer red To Contact Radiology Diagnoses Stage 5 chronic kidney disease Pre-transplant evaluation for kidney transplant [facility] Transplant [address] [place] [address] Procedures [address] Abdomen & [place] [address] [place] [address] Phone: Referral ID Status Reason Start Date Expiration Date Visits V isits Requested Authorized [id number] Closed Specialty 09/30/2019 03/27/2020 1 1 Service Requested Encounter Details Date Type Department Care Team Description 06/08/2019 Orders Only Solid Organ Transplant Ilana Rivera age 3 chronic kidney disease; at [facility], RN Pre-transplant [place] [address] Social History Tobacco Use Types Packs/Day [...] e number below. ? Electronically signed by: Juan Munguia [facility] ([phone]), at 10/17/2019 4:52 PM Narrative 10/17/2019 4:52 PM EDT EXAMINATION: ??CT [...] report, please contact th e number below. Electronically signed by: Juan holland [facility] ([phone]), at 10/17/2019 4:52 PM Elmira Salinas MD IMG CT ORDERABLES Pulmonary Function Testing (10/17/2019 3:34 PM EDT) [...] correlation is recommended. ?? Ida Palmer MD Elmira Salinas MD PFT ORDERABLES Cortisol (10/17/2019 2:40 PM EDT) P athologist Signature Cortisol 28.1 mcg/dL [facility] Comment: Reference ranges: ??AM (6-10am): ??4.8-19.5 mcg/dL ??PM (4-8pm) : ??2.5-11.9 mcg/dL Specimen Anatomical Collection Method Collection Time Receive d Time (Source) Location / / Volume Laterality Blood specimen 10/17/2019 2:40 PM 020 3:16 (specimen) EDT PM EDT Resulting Agency Comment Spec In Lab Elmira Salinas MD CHEMISTRY ORDERABLES Performing Organization Address City/[facility]/ZIP Code Phon e Number [address] Cortisol (10/17/2019 12:47 PM EDT) P athologist Signature Cortisol 11.1 mcg/dL [facility] Comment: Reference ranges: ??AM (6-10am): ??4.8-19.5 mcg/dL ??PM (4-8pm) : ??2.5-11.9 mcg/dL Specimen Anatomical Collection Method Collection Time Receive d Time (Source) Location / / Volume Laterality Blood specimen 10/17/2019 12:47 0 1:22 (specimen) PM EDT PM EDT Resulting Agency Comment Spec In Lab Elmira Salinas MD CHEMISTRY ORDERABLES Performing Organization Address City/[facility]/ZIP Code Phon e Number [address] Prealbumin (10/17/2019 12:47 PM EDT) P athologist Signature Prealbumin 20 20 - 40 [facility] Comment: Prealbumin levels are generally lower in the pediatric population; adult concentrations are usually attained near puberty. Specimen Anatomical Collection Method Collection Time Receive d Time (Source) Location / / Volume Laterality Blood specimen 10/17/2019 12:47 0 1:22 (specimen) PM EDT PM EDT Resulting Agency Comment Spec In Lab Elmira Salinas MD CHEMISTRY ORDERABLES Performing Organization Address City/State/[place] [address] Carotid Duplex, Bilateral (10/05/2019 10:04 AM EDT) Component Value Ref Test Analysis Performed At Patholo gist Range Method Time Signature VB Text Department: [facility] Report Patient: [id number] (PRETTY HARMON) CPT: 74279 ICD10: N18.5;Z01.818 Referring Physician: ELMIRA SALINAS ?? Phone: Indications: Pre-op kidney transplant evaluation, [...] Volume Laterality 10/05/2019 10:04 AM EDT Elmira Salinas MD VASCULAR ORDERABLES Performing Organization Address City/State/ZIP Code Phon e Number [email or web address] [place], legs, multiple levels (10/05/2019 10:04 AM EDT) Component Value Ref Test Analysis Performed At [facility] gist Range Method Time Signature VB Text Department: Vascular Surgery Lab [facility] Report Patient: [id number] (PRETTY HAR[place]) CPT: 36953 ICD10: Z01.818;I73.9;N18.5 Referring Physician: ELMIRA SALINAS ?? Phone: Indications: Pre-op kidney transplant, ? [...] Pedis (Ankle) Arter y ?120 ? 0.67 ??[place]- Biphasic ? Posterior Tibial (Ankle) Art mikie ??131 ? 0.73 ??[place]-Biphasic ? Great Toe ?71 ? 0.40 ?? Interpretation: RIGHT: No evidence of lower extremity ar terial occlusive disease to the ankle. 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 No identifiable change when compared to the previous exam performed on . LEFT: Mild lower extremity arterial occlusive disease to the ankle. 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 Significant improvement in the dorsalis pedis and po sterior tibial arteries with no change in the TBI when compared to previous exam performed on . NOTE: Hypertension is present based on D jacquelinepler derived systolic brachial blood pressure. Previous ABIs [...] Volume Laterality 10/05/2019 10:04 AM EDT Elmira Salinas MD VASCULAR ORDERABLES Performing Organization Address City/State/ZIP Code Phon e Number [email or web address] documented in this encounter Visit Diagnoses Diagnosis Stage 5 chronic kidney disease Pre-transplant evaluation for kidney tra nsplant Other specified pre-operative examinatio n Stage 5 chronic kidney disease Pre-transplant evaluation for kidney tra nsplant Other specified pre-operative examinatio n Stage 5 chronic kidney disease Pre-transplant evaluation for kidney tra nsplant Other specified pre-operative examinatio n documented in this encounter Care Teams Riding Silks Custodian Relationship Specialty Start Date End Date Sanjuanita Lee MD PCP - General 03/05/13 12/23/[address] [place] [address] documented as of this encounter
--- OUTSIDE RECORDS SUMMARY | 2022-02-22 23:31 | XMS_ITS | Encounter Summary ---
:1950 Author Organization [facility] [place] [address] Care Team Providers Name Role Phone Sanjuanita Lee MD Primary Care Provider Encounter Details Date Type Department Care Team Description 05/19/2019 Office Visit Solid Organ Transplant at Co e-transplant evaluation for kidney transplant; [facility] Stage 4 chronic kidney disea se; [facility] Jennifer ivory Encounter for pre-transplant evaluation [place] [address] Social History Tobacco Use Types Packs/Day [...] documented as of this encounter Progress Notes Nadja Andrea LPN - 05/19/2019 2:45 PM EST Saw Charlene Harmon for frailty assessment score. Frailty assessment score pre-frail 1. See scanned doc for further information. Educated patient on indication of frailty assessment and explanation of results. documented in this encounter Plan of Treatment Scheduled Procedures Name Priority Associated Diagnoses Date/Time EGD, UPPER GI ENDOSCOPY Gastroesophageal reflux disease, esophagitis presence not specifi ed documented as of this encounter Visit Diagnoses Diagnosis Pre-transplant evaluation for kidney tra nsplant Other specified pre-operative examinatio n Stage 4 chronic kidney disease Encounter for pre-transplant evaluation for kidney transplant documented in this encounter Care Teams Leak Inspector Relationship Specialty Start Date End Date Sanjuanita Lee MD PCP - General 03/05/13 12/23/[address] [place] [address] documented as of this encounter
--- OUTSIDE RECORDS SUMMARY | 2022-02-22 23:31 | XMS_ITS | Encounter Summary ---
:1950 Author Organization [facility] [place] [address] Care Team Providers Name Role Phone Sanjuanita Lee MD Primary Care Provider Encounter Details Date Type Department Care Team Description 05/19/2019 Office Visit Solid Organ Transplant Ilana Rivera age 2 chronic kidney disease; at [facility] Prosper RN Pre-transplant [place] [address] Social History Tobacco Use Types Packs/Day [...] Progress Notes Ilana Rivera RN - 05/19/2019 1:15 PM EST I met with Charlene Harmon and Rodolfo for the first evaluation step in the kidney transplant evaluation process. We completed her required consents for evaluation. We also discussed the evaluation process and the reason that the testing (listed below) will be required. She understands that additional testing may be required based on her specific medical history that the transplant team is gathering today. 1. Up to date Immunizations: Flu Shot (yearly), Prevnar 13 (once in a lifetime), Shingles (completedone 2 years ago) 2. Healthcare Maintenance: Yearly physical, colonoscopy (every 3-10 years depending on results), mammogram, Pap Smear 3. Cardiac: EKG and Cardiac stress test - every year (completed in December) - Res Habilitation Assistant 4. Labs: Serologies (immune status), ABO verification x2, and tissue typing 5. Vascular: [place]'s 6. Radiology: Chest X-ray 7. Urology: She is currently urinating. 8. Pulmonary: She smoked 0.5 packs for 45 years. We discussed Pulmonary Function Testing and CT of chest. - Charlene reports that most of her medical records can be found at . Care providers include (in [facility]), Dr. Hendrickson (in [facility]), Dr. Kemp. - She would like to complete their transplant specific testing at [facility] when possible. When possible,schedule testing and appointments at together. - Transportation: self and - No restrictions for scheduling After all required testing has been completed, Charlene will return to clinic for a final evaluation andeducation prior to being added to the kidney transplant wait list. She understands that more testingcould be added and required at any time based on the results of testing. I also discussed with Charlene the importance of contacting us if there are any changes in her health that could delay her evaluation or effect her candidacy for kidney transplant. We discussed living donation and I provided her with a living donor packet of information to look through and hand out to anyone who may be interested in donating a kidney. She thinks that she may havea living donor (son and daughter). All questions were answered regarding the kidney transplant evaluation process and I provided her with my contact information so that she can call with anything. I spent 35 minutes providing direct education to the patient. documented in this encounter Plan of Treatment Scheduled Procedures Name Priority Associated Diagnoses Date/Time EGD, UPPER GI ENDOSCOPY Gastroesophageal reflux disease, esophagitis presence not specifi ed documented as of this encounter Results Varicella zoster Antibody, IgG (05/24/2019 1:16 PM EST) P athologist Signature Varicella IgG Pos [facility] Specimen Anatomical Collection Method Collection Time Receive d Time (Source) Location / / Volume Laterality Blood specimen 05/24/2019 1:16 PM 020 7:28 (specimen) EST AM EST Resulting Agency Comment Spec In Lab Brent Salinas MD IMMUNOLOGY ORDERABLES Performing Organization Address City/[facility]/ZIP Code Phon e Number [address] Toxoplasma Antibody, IgG (05/24/2019 1:16 PM EST) Patholo gist Method Time Signature Toxoplasma IgG Negative Negative [facility] Specimen Anatomical Collection Method Collection Time Receive d Time (Source) Location / / Volume Laterality Blood specimen 05/24/2019 1:16 PM 020 7:28 (specimen) EST AM EST Resulting Agency Comment Spec In Lab Brent Salinas MD IMMUNOLOGY ORDERABLES Performing Organization Address City/[facility]/ZIP Code Phon e Number [address] Syphilis Screening Antibody with reflex RPR (05/24/2019 1:16 PM EST) Analysis Performed At Patho logist Time Signature Syphilis Negative Negative [facility] IgG/IgM [facility] Specimen Anatomical Collection Method Collection Time Receive d Time (Source) Location / / Volume Laterality Blood specimen 05/24/2019 1:16 PM 020 1:22 (specimen) EST PM EST Resulting Agency Comment Spec In Lab Brent Salinas MD IMMUNOLOGY ORDERABLES Performing Organization Address City/[facility]/ZIP Code Phon e Number [address] HIV Screen, 4th Generation ([facility]/CGP/APD) (05/24/2019 1:16 PM EST) Analysis Performed At Patho logist Time Signature HIV-1/2 Ab and Negative Negative [facility] Comment: This 4th Generation HIV test [...] Salinas MD IMMUNOLOGY ORDERABLES Performing Organization Address City/[facility]/ZIP Code Phon e [address] HSV 1 and 2 IgG Antibodies (05/24/2019 1:16 PM EST) P athologist Signature HSV Type 1 Neg Neg [facility] Antibody, [facility]ORATORY HSV Type 2 Neg Neg [facility], [facility]ORY Specimen Anatomical Collection Method Collection Time Receive d Time (Source) Location / / Volume Laterality Blood specimen 05/24/2019 1:16 PM 020 7:28 (specimen) EST AM EST Resulting Agency Comment Spec In Lab Brent Salinas MD IMMUNOLOGY ORDERABLES Performing Organization Address City/[facility] Code Phon e [address] (ABNORMAL) Ashly-Mcintyre Virus Antibodies (05/24/2019 1:16 PM EST) Patholo gist Method Time Signature EBV (VCA) IgG Pos (A) Neg [facility] Antibody [facility] EBV (VCA) IgM Neg Neg [facility] Antibody [facility] EBNA Antibodies Pos (A) Neg [facility] EBV Interpretation Results [facility] infection. HOSPITAL LABORATORY Comment: In most [...] Salinas MD IMMUNOLOGY ORDERABLES Performing Organization Address [facility]/ZIP Code Phon e Number [address] CMV Antibody, IgG (05/24/2019 1:16 PM EST) P athologist Signature CMV IgG Negative Negative [facility] Specimen Anatomical Collection Method Collection Time Receive d Time (Source) Location / / Volume Laterality Blood specimen 05/24/2019 1:16 PM 020 7:28 (specimen) EST AM EST Resulting Agency Comment Spec In Lab Brent Salinas MD IMMUNOLOGY ORDERABLES Performing Organization Address [facility] Phon e Number [address] Hepatitis C RNA, quantitative, PCR (05/24/2019 1:16 PM EST) Component Value Ref Test Analysis Performed At [facility] gist Range Method Time Signature HCV Viral <12 IU/mL [facility] LABORATORY HCV Viral Result: <12 IU/mL, Target not detected) [facility] Indication for Study: Hepatitis C Infection [facility] Analysis: The Mares RealTime HCV assay is an in vitro reverse veneer clipper LABORATORY polymerase chain reaction (RT-PCR)for the quantitation [...] Comment: [VERIFIED DATE]05.26.19 Verified By:Lab Review, Molecular Geneti cs (Electronic Signature) Specimen Anatomical Collection Method Collection Time Receive d Time (Source) Location / / Volume Laterality Blood specimen 05/24/2019 1:16 PM 020 1:22 (specimen) EST PM EST Resulting Agency Comment Spec In Lab Brent Salinas MD IMMUNOLOGY ORDERABLES Performing Organization Address City/[facility]/[place] [address] Hepatitis C Antibody (05/24/2019 1:16 PM EST) Analysis Performed At Patho logist Time Signature Hepatitis C Ab Negative Negative [facility] Specimen Anatomical Collection Method Collection Time Receive d Time (Source) Location / / Volume Laterality Blood specimen 05/24/2019 1:16 PM 020 1:22 (specimen) EST PM EST Resulting Agency Comment Spec In Lab Brent Salinas MD IMMUNOLOGY ORDERABLES Performing Organization Address City/[facility] Code Phon e Number [address] Hepatitis B Surface Antigen (05/24/2019 1:16 PM EST) Analysis [facility]formed [facility] Signature HepB Surface Negative Negative [facility] LABORATORY Specimen Anatomical Collection Method Collection Time Receive d Time (Source) Location / / Volume Laterality Blood specimen 05/24/2019 1:16 PM 020 1:22 (specimen) EST PM EST Resulting Agency Comment Spec In Lab Brent Salinas MD CHEMISTRY ORDERABLES Performing Organization Address City/[facility] [place] [address] Hepatitis B Surface Antibody (05/24/2019 1:16 PM EST) P athologist Signature HepB Surface <3.5 IU/L [facility] Ab Quant [facility] Comment: HepB Surface Ab Quant: Unvaccinated: < 8.5 IU/L Vaccinated: > 11.5 IU/L HepB Surface Ab Negative [facility] Comment: Patient is presumed to be not vaccinated or immune to HBV infection. Expected Results: Vaccinated: Positive Unvaccinated: Negative Specimen Anatomical Collection Method Collection Time Receive d Time (Source) Location / / Volume Laterality Blood specimen 05/24/2019 1:16 PM 020 1:22 (specimen) EST PM EST Resulting Agency Comment Spec In Lab Brent Salinas MD IMMUNOLOGY ORDERABLES Performing Organization Address City/[facility]/[place] [address] Hepatitis B Core Antibody, IgM (05/24/2019 1:16 PM EST) Analysis Performed At Patho logist Time Signature Hep B Core IgM Negative Negative [facility] Specimen Anatomical Collection Method Collection Time Receive d Time (Source) Location / / Volume Laterality Blood specimen 05/24/2019 1:16 PM 020 1:22 (specimen) EST PM EST Resulting Agency Comment Spec In Lab Brent Salinas MD IMMUNOLOGY ORDERABLES Performing Organization Address City/State/ZIP Code Phon e Number [place] [phone] [facility] [address]ORY Drive Prothrombin Time (05/24/2019 1:16 PM EST) P athologist Signature PT 12.2 9.4 - 12.5 [facility] LABORATORY INR 1.0 [facility] Comment: An INR <2.0 indicates [...] Organization Address City/State/[place] [address] APTT (05/24/2019 1:16 PM EST) P athologist Signature PTT 32 25 - 37 sec [facility] Comment: The PTT is NOT [...] Organization Address City/State/[place] [address] documented in this encounter Visit Diagnoses Diagnosis Stage 4 chronic kidney disease Pre-transplant evaluation for kidney tra nsplant Other specified pre-operative examinatio n documented in this encounter Care Teams Hog Driver Relationship Specialty Start Date End Date Sanjuanita Lee MD PCP - General 03/05/13 12/23/[address] [place] [address] documented as of this encounter
--- OUTSIDE RECORDS SUMMARY | 2022-02-22 23:31 | XMS_ITS | Encounter Summary ---
:1950 Author Organization [facility] [place] [address] Care Team Providers Name Role Phone Sanjuanita Lee MD Primary Care Provider Reason for Visit Reason Onset Date Comments Medication Refill 03/17/2019 Encounter Details Date Type Department Care Team Description 03/17/2019 Refill Cardiology at [facility] Kalee Irving PA Medication [facility]ill [facility] [address] Cardiology Dept [phone] [place], [place] [address] (Wo rk) Social History Tobacco [...] Telephone Encounter - Jessa Arredondo RN - 03/17/2019 11:47 AM EST Received incoming call from pharmacy requesting that provider send new Rx for amlodipine 5 mg- as patient is currently cutting the 10 mg amlodipine tablet in half. New Rx sent to Sukhwinder Irving's approval. Jessa Arredondo RN, BSN Ambulatory Cardiology Department documented in this encounter Plan of Treatment Scheduled Procedures Name Priority Associated Diagnoses Date/Time EGD, UPPER GI ENDOSCOPY Gastroesophageal reflux disease, esophagitis presence not specifi ed documented as of this encounter Visit Diagnoses Diagnosis Uncontrolled hypertension - Primary Unspecified essential hypertension Acute on chronic systolic heart failure Hypertensive urgency Unspecified essential hypertension documented in this encounter Care Teams Roads Supervisor Relationship Specialty Start Date End Date Sanjuanita Lee MD PCP - General 03/05/13 12/23/[address] [place] [address] documented as of this encounter
--- OUTSIDE RECORDS SUMMARY | 2022-02-22 23:31 | XMS_ITS | Encounter Summary ---
:1950 Author Organization [facility] [place] [address] Care Team Providers Name Role Phone Sanjuanita Lee MD Primary Care Provider Reason for Visit Reason Comments Chronic Kidney Disease Encounter Details Date Type Department Care Team Description 05/24/2019 Office Visit Nephrology Hypertension Mainor Campbell MD [facility] [place] [address] CKD (chronic kidney disease) stage 4, GF R 15-29 ml/min; [place] [facility] Delivery Tech, A None Metabolic acidosis; [facility] Champ Valentine MBBS [facility] [address] [place] [address] Hy[place]ension, [place] [address] Social History Tobacco Use Types Packs/Day [...] Sign Reading Time Taken Comments Blood Pressure 127/73 05/24/2019 2:10 PM EST Pulse 73 05/24/2019 2:10 PM EST Temperature - - Respiratory Rate - - Oxygen Saturation - - Inhaled Oxygen Concentration - - Weight 42.6 kg (94 lb) 05/24/2019 2:10 PM EST Height - - Body Mass Index 18.06 05/19/2019 11:03 AM EST documented in this encounter Patient Instructions Patient InstructionsEva Montana RN - 05/24/2019 2:00 PM EST Your kidney function has improved slightly. Your blood pressures are great. We are not making any changes. Call if you feel differently (consistent symptoms of nausea, vomiting, little appeal for food, itching, change in sleep patterns, worsening energy levels, shortness of breath). These are some of the signs of worsening kidney function. We will see you sooner if you are not feeling well. Please call. Eva COOK-lab support service tech Kidney Disease Nurse Specialist at [facility] Neph[facility]. documented in this encounter Progress Notes Champ Valentine MBBS - 05/24/2019 2:00 PM EST [facility] Neph[facility] [address] [place] [address] Reason for Clinic Visit: Systems Review and CKD management. Seen in clinic with: Eva Montana RN, CKD RN Specialist CKD related to: uncontrolled HTN and renal ischemia History of Present Illness: 68 y.o. female with PMHx significant for CKD stage??G4/A3??due to long standing uncontrolled HTN and renal [...] quit 10 years ago),??who was [place] [facility]??for??hypertensive urgency and??flash pulmonary edema requiring [...] with reversed right greater saphenous vein??on 09/07/18 . She is here for follow up History obtained by RN Specialist: Charlene was last seen 03/29/19, eGFR 19. She was seen without CCM at that visit due to scheduling conflict. Seen today in clinic with her , Rodolfo. Her potassium was low at the last visit and was given supplementation. She is following with Cardiology at [facility] in [facility]. She recently went to the Transplant Information Session and has started the pre-evaluation testing. Has potential living donor identified. Review of Systems: Sign/Symptom Comments Energy level/fatigue: Most days have been very good.Can't slow her down. Recently retired as of 11/24/18 Change in sleep patterns: Doing ok - has trouble quieting her mind. Reflux no longer keeps her up. Nocturia: 1x Appetite changes: Much better - has gained back some weight. Famotidine working well for reflux Food aversions: Nothing tastes good - everything is very bland Nausea: None Vomiting: None Bowels: Constipation - improved Edema: None Shortness of breath: None Orthopnea/PND: No PND - 2 pillows - able to stay in bed all night now Muscle Cramping: Yes - Leg cramps at night. Recommended bar of soap in the bed Cold intolerance: Yes - all the time Itching: None Bruising/bleeding: None Mental Status Changes: None - reports improving concentration - about 90% Recent Home Blood Pressure Control: Takes 2x daily, brought in logs Recent Home Diabetic Management: Not a diabetic Recent Lipid Management: Advance Directives: on file in [facility] How has your health been in the last 4 weeks? Poor, Fair, Good, Very Good, Excellent. Additional CCM Comments: Social Determinant Date/Comments Food Security/ Nutritional Education Low Sodium diet Stable Housing/ Safety Concerns Lives with Community Supports/ Transportation issues/ Appointment coordination Drives - [address] [place] [facility] Functional Status/ Assistive devices Independent Learning Style/Considerations [...] Therapy Plan: 05/24/19 - Pre emptive transplant Transplant evaluation: 05/24/19 - Completed Transplant information session. Has potential living donors identified. Fistula Date/Type of Initial Access/Surgeon: Bruit: Yes [...] renal failure, stage 4 (severe) N18.4, D63.1 No Known Allergies Outpatient Medications Marked as Taking for the 05/24/19 encounter (Office Visit) with Mainor Campbell MD Medication Sig Dispense Refill ??? furosemide (Lasix) 20 mg Tablet Take 20 mg by mouth 2 times daily. ??? amLODIPine (NORVASC) 5 mg Tablet Take [...] mg by mouth daily. Physical Exam: BP 127/73 Pulse 73 Wt 42.6 kg (94 lb) BMI 18.06 kg/m?? Check if examined Findings General appearance Awake and alert , not in distress Head Eyes ENT Neck Supple Respiratory Equal air entry , no crackles at lungs COR/Vascular S1s2 normal, no murmur Abdomen Soft, non tender, no organomegaly Not examined Skin No rash Neuro No gross deficit Asterixis No Extremities No edema Other Labs Results for CHARLENE HARMON ( ) as of 05/24/2019 15:27 Ref. Range 03/29/2019 13:45 05/24/2019 13:16 WBC Latest Ref Range: 4.0 - 9.5 x10(3)/mcL 7.9 11.2 (H) RBC Latest Ref Range: 4.00 - 5.21 x10(6)/mcL 3.63 (L) 4.20 Hemoglobin Latest Ref Range: 11.7 - 15.5 gm/dL 11.1 (L) 12.8 Hematocrit Latest Ref Range: 35.7 - 45.8 % 33.2 (L) 38.9 MCV Latest Ref Range: 82.6 - 94.4 fL 91.5 92.6 MCH Latest Ref Range: 27.1 - 32.0 pg 30.6 30.5 MCHC Latest Ref Range: 31.7 - 35.0 gm/dL 33.4 32.9 RDWSD Latest Ref Range: 37.0 - 46.0 fL 49.1 (H) 44.0 RDWCV Latest Ref Range: 11.5 - 14.1 % 14.6 (H) 13.1 Platelets Latest Ref Range: 145 - 357 x10(3)/mcL 228 236 MPV Latest Ref Range: 7.6 - 12.9 fL 10.5 10.8 PTT Latest Ref Range: 25 - 37 sec 32 Sodium Latest Ref Range: 135 - 145 mmol/L 136 139 Potassium Latest Ref Range: 3.5 - 5.0 mmol/L 2.7 (CRIT) 3.7 Chloride Latest Ref Range: 98 - 107 mmol/L 99 97 (L) CO2 Latest Ref Range: 22 - 31 mmol/L 21 (L) 26 Anion Gap Latest Ref Range: 5 - 15 mmol/L 16 (H) 16 (H) BUN Latest Ref Range: 8 - 18 mg/dL 38 (H) 31 (H) Creatinine Latest Ref Range: 0.70 - 1.20 mg/dL 2.49 (H) 2.31 (H) eGFR Latest Ref Range: >=60 mL/min/1.73 m?? 19 (L) 21 (L) eGFR Latest Ref Range: >=60 mL/min/1.73 m?? 22 (L) 24 (L) Glucose Lvl Latest Ref Range: 65 - 199 mg/dL 75 148 Calcium Latest Ref Range: 8.5 - 10.5 mg/dL 9.0 9.3 Magnesium Latest Ref Range: 0.69 - 1.07 mmol/L 0.83 Phosphorus Latest Ref Range: 2.5 - 4.5 mg/dL 3.7 3.9 Uric Acid Latest Ref Range: 2.5 - 6.5 mg/dL 8.6 (H) 7.0 (H) Albumin Latest Ref Range: 3.2 - 5.2 gm/dL 3.9 4.2 Ferritin Latest Ref Range: 30 - 400 ng/mL 81 Iron Latest Ref Range: 30 - 150 mcg/dL 48 TIBC Latest Ref Range: 250 - 450 mcg/dL 298 Iron Saturation Latest Ref Range: 20 - 50 % 16 (L) U Protein Ran Latest Ref Range: 0 - 12 mg/dL 77 (H) PTH Latest Ref Range: 15 - 65 pg/mL 42 45 Prot/Cre Ratio Latest Units: ratio 2.3 U Creatinine Latest Units: mg/dL 34 Syphilis IgG/IgM Latest Ref Range: Negative Negative HIV-1/2 Ab and Ag Latest Ref Range: Negative Negative HepB Surface Ab Quant Latest Units: IU/L <3.5 HepB Surface Ab Unknown Negative HepB Surface Ag Latest Ref Range: Negative Negative Hep B Core IgM Latest Ref Range: Negative Negative Hepatitis C Ab Latest Ref Range: Negative Negative ABORh Type Unknown A Pos AB Screen Interp Unknown Negative Expires at 2359 on: Unknown 05/27/2019 ABORH Type Recheck Unknown Completed Problem/Goal/Assessment/Plan: Problem: Chronic Kidney Disease Goal: Reduce rate of progression Education for CKD Stage specific issues Results: Estimated GFR (CKD-EPI): 21 ml/min/1.73m2 CKD Stage 4 Potassium Level - 3.7 CO2 level - 26 - Does not tolerate sodium bicarbonate Uric Acid level - 7.0 Changes discussed with RN Specialist: Your kidney function has improved slightly. We are not makingany changes. Call if you feel differently (consistent symptoms of nausea, vomiting, little appeal for food, itching, change in sleep patterns, worsening energy levels, shortness of breath). These are some of the signs of worsening kidney function. We will see you sooner if you are not feeling well. A/P: She has stable renal function with improvement in serum creatinine as compared to last month. Clinically euvolemic. HB is stable . Mild metabolic acidosis but does not tolerate sodium bicarbonatesupplement due to multiple time flash pulmonary edema. Problem: Management of Anemia related to Chronic Kidney Disease (CKD) Goal: Hgb 9.5-10.9 g/dl Ferritin>100ng/ml TSAT>20% Today's Results Hgb - 12.8 Ferritin - 81 TSAT - 16 Receiving erythropoetic stimulating agent? No Last IV Iron replacement therapy (Venofer), Date : Dec 2018 received 1 iron infusion - declines additional infusions Changes discussed with RN Specialist: None A/P: Hemoglobin is at target range , she is iron deficient but unable to tolerate oral and ir iron supplement Problem: Hypertension Goal: Urine alb:cr ratio <30mg/g - 140/90, Urine alb:cr ratio > 30mg/g - 130/80 Sodium intake < 2 Gm per day. Results: BP today - 127/73 Changes discussed with RN Specialist: Patient has not needed PRN Clonidine A/P: BP is stable. Advise to monitor at home and keep record. Problem: Proteinuria Goal: Pro:Cr ratio <0.2mg/mg Today's results: Pro:Cr ratio 2.3 Changes discussed with RN Specialist: A/P: she had sub nephrotic range protein uria .As BP is more stable and renal function is more stable we will consider lisinopril 5 mg in next visit . Problem: Bone Disease Goal: Stage 3 PTH: 35-70 pg/ml Phos 2.7-4.6 Ca 8.5-10.5mg/dl Stage 4 PTH: 70-110 pg/ml Phos 2.7-4.6 Ca 8.5-10.5mg/dl Stage 5 PTH: 150-300 pg/ml Phos 3.5-5.5 Ca 8.5-10.5mg/dl Results: PTH today - 45 ( pt not taking calcitriol) Phos today -3.9 ( pt not taking binders) Calcium today - 9.3 Changes discussed with RN Specialist: None A/P: Calcium , phosphorous and PTH is within normal range. Problem: Nutrition Goal: Albumin > 4.0gm/dl BMI 20-25 kg/m2 Results: Albumin today - 4.2 Changes discussed with RN Specialist: Continue healthy eating A/P: Albumin is at target range . Problem: Dyslipidemia Goal: LDL < 100 mg/dl Results: LDL today - not tested Changes discussed with RN Specialist: Pt on atorvastatin 20 mg daily A/P: Problem: Findings: Changes discussed with RN Specialist: A/P: Referral: Summary: CKD stage G4 with stable renal function being evaluated by transplant team. Clinically euvolemic , BP is at target range and no uremic symptoms Return to CKD clinic: 6 months with repeat labs in 3 months Mainor Campbell MD - 05/24/2019 2:00 PM EST The patient was examined together with the renal fellow and Eva Montana, the [facility],and I agree with the above note which accurately reflects our findings and assessment documented in this encounter Miscellaneous Notes Addendum Note - Mainor Campbell MD - 05/24/2019 2:00 PM EST Addended by: MAINOR CAMPBELL on: 06/01/2019 05:38 PM Modules accepted: Level of Service documented in this encounter Plan of Treatment Scheduled Procedures Name Priority Associated Diagnoses Date/Time EGD, UPPER GI ENDOSCOPY Gastroesophageal reflux disease, esophagitis presence not specifi ed documented as of this encounter Results Phosphorus (10/17/2019 12:47 PM EDT) athologist Signature Phosphorus 3.6 2.5 - 4.5 [facility] Specimen Anatomical Collection Method Collection Time Receive d Time (Source) Location / / Volume Laterality Blood specimen 10/17/2019 12:47 0 1:22 (specimen) PM EDT PM EDT Resulting Agency Comment Spec In Lab Mainor Campbell MD CHEMISTRY ORDERABLES Performing Organization Address City/State/[place] [address] (ABNORMAL) Basic Metabolic Panel (non-fasting) (10/17/2019 12:47 PM EDT) athologist Signature Glucose Lvl 120 65 - 199 [facility] mg/dL [facility] Comment: Diabetes: >=200 mg/dL plus symp toms BUN 36 (H) 8 - 18 mg/dL [facility] Creatinine 2.22 (H) 0.70 - 1.20 mg/dL [facility] Sodium 139 135 - 145 mmol/L [facility] Potassium 3.4 (L) 3.5 - 5.0 mmol/L [facility] Comment: Please note: ??Patients with WBC >100,00 0 may have falsely elevated Potassium levels. ??For accurate Potassium quantif ication in these patients send serum separator tube (gold top) for subsequent determinations. ??Contact the Clinical Chemistry Laboratory if there are any qu estions. Chloride 99 98 - 107 mmol/L [facility] CO2 24 22 - 31 mmol/L [facility] Anion Gap 16 (H) 5 - 15 mmol/L [facility] Calcium 9.1 8.5 - 10.5 mg/dL [facility] Estimated GFR 22 (L) >=60 mL/min/1.73 m?? [facility] Comment: The eGFR was calculated using the CKD-EP I equation. As with all creatinine based estimates of kidney function, eGFR values calculated with the CKD-EPI equation are not accurate in patients wi th acute kidney failure, extremes of body mass or the acutely ill. [email or web address] eGFR 25 (L) >=60 mL/min/1.73 m?? [facility] Comment: The eGFR was calculated using the CKD-EP I equation. As with all creatinine based estimates of kidney function, eGFR values calculated with the CKD-EPI equation are not accurate in patients wi th acute kidney failure, extremes of body mass or the acutely ill. [email or web address] Specimen Anatomical Collection Method Collection Time Receive d Time (Source) Location / / Volume Laterality Blood specimen 10/17/2019 12:47 0 1:22 (specimen) PM EDT PM EDT Resulting Agency Comment Spec In Lab Mainor Campbell MD CHEMISTRY ORDERABLES Performing Organization Address City/State/[place] [address] documented in this encounter Visit Diagnoses Diagnosis CKD (chronic kidney disease) stage 4, GF R 15-29 ml/min Chronic kidney disease, Stage IV (severe ) Metabolic acidosis Acidosis Hypertension, unspecified type documented in this encounter Care Teams Natural Resources Engineer Relationship Specialty Start Date End Date Sanjuanita Lee MD PCP - General 03/05/13 12/23/[address] [place] [address] documented as of this encounter
--- OUTSIDE RECORDS SUMMARY | 2022-02-22 23:31 | XMS_ITS | Encounter Summary ---
:1950 Author Organization [place] [address] Care Team Providers Name Role Phone Sanjuanita Lee MD Primary Care Provider Reason for Visit Reason Comments Medication Refill Encounter Details Date Type Department Care Team Description 04/24/2019 Refill Nephrology Hypertension at Champ Mohamud MBBS [facility] Jennifer ivory NEPHROLOGY [place] [address] [place] [address] [phone] (Wo rk) Social History Tobacco Use Types [...] on filedocumented in this encounter Care Teams Bartender Helper Relationship Specialty Start Date End Date Sanjuanita Lee MD PCP - General 03/05/13 12/23/[address] [place] [address] documented as of this encounter
--- OUTSIDE RECORDS SUMMARY | 2022-02-22 23:31 | XMS_ITS | Encounter Summary ---
:1950 Author Organization [facility] [place] [address] Care Team Providers Name Role Phone Sanjuanita Lee MD Primary Care Provider Encounter Details Date Type Department Care Team Description 07/14/2019 Telephone Pulmonology at [facility] [place], [place] [address] Social History Tobacco Use Types Packs/Day [...] on filedocumented in this encounter Care Teams Baseball Glove Stuffer Relationship Specialty Start Date End Date Sanjuanita Lee MD PCP - General 03/05/13 12/23/21 [place] [address] documented as of this encounter
--- OUTSIDE RECORDS SUMMARY | 2022-02-22 23:31 | XMS_ITS | Encounter Summary ---
:1950 Author Organization [facility] [place] [address] Care Team Providers Name Role Phone Sanjuanita Lee MD Primary Care Provider Encounter Details Date Type Department Care Team Description 03/29/2019 Laboratory Appointment Lab 3L [facility] CKD (chronic kidney [facility] disease) stage 5, GFR [facility] less than 15 ml/[place] [id number] Social History Tobacco Use Types Packs/Day Years [...] Name Priority Date/Time Associated Comments Diagnosis HC VENIPUNCTURE Routine 03/29/2019 1:45 PM CKD (chronic kidney Results for this EST disease) stage 5, procedure are in GFR less than 15 the results ml/min section. HEMOGRAM Routine 03/29/2019 1:45 PM CKD (chronic kidney Re sults for this EST disease) stage 5, procedure are in GFR less than 15 the results ml/min section. DIFFERENTIAL, Routine 03/29/2019 1:45 PM CKD (chronic kidney R esults for this AUTOMATED EST disease) stage 5, procedure are in GFR less than 15 the results ml/min section. GOLD TUBE HOLD Routine 03/29/2019 1:45 PM CKD (chronic kidney Results for this EST disease) stage 5, procedure are in GFR less than 15 the results ml/min section. HC CBC,PLT & AUTO Routine 03/29/2019 1:45 PM CKD (chronic kidn ey DIFF EST disease) stage 5, GFR less than 15 ml/min HC URIC ACID, SERUM Routine 03/29/2019 1:45 PM CKD (chronic ki dney Results for this EST disease) stage 5, procedure are in GFR less than 15 the results ml/min section. HC PHOSPHORUS, SERUM Routine 03/29/2019 1:45 PM CKD (chronic k idney Results for this EST disease) stage 5, procedure are in GFR less than 15 the results ml/min section. MAGNESIUM Routine 03/29/2019 1:45 PM Results f or this EST procedure are i n the results section. HC ALBUMIN, SERUM Routine 03/29/2019 1:45 PM CKD (chronic kidn ey Results for this EST disease) stage 5, procedure are in GFR less than 15 the results ml/min section. BASIC METABOLIC PANEL Routine 03/29/2019 1:45 PM CKD (chronic kidney Results for this (NON-FASTING) EST disease) stage 5, procedure are in GFR less than 15 the results ml/min section. HC PROTEIN, Routine 03/29/2019 1:40 PM CKD (chronic kidney Re sults for this QUANTITATIVE, URINE EST disease) stage 5, pro cedure are in GFR less than 15 the results ml/min section. documented in this encounter Results Magnesium (03/29/2019 1:45 PM EST) P athologist Signature Magnesium 0.83 0.69 - 1.07 [facility] mmol/L [facility] LABORATORY Specimen Anatomical Collection Method Collection Time Receive d Time (Source) Location / / Volume Laterality Blood specimen Venous Draw / 03/29/2019 1:45 PM 2018 1:51 (specimen) Unknown EST PM EST Resulting Agency Comment Spec In Lab Champ Serge KETAN CHEMISTRY ORDERABLES Performing Organization Address City/State/[place] [address] (ABNORMAL) Differential, Automated (03/29/2019 1:45 PM EST) [facility] gist Method Time Signature Neutrophils % 66.9 % [facility] LABORATORY Neutr Abs (ANC) 5.27 1.70 - [facility] 6.10 [facility] x10(3)/[facility] LABORATORY Lymphocytes % 13.6 % [facility] LABORATORY Lymphocytes Abs 1.1 0.9 - 3.2 [facility] x10(3)/[facility] LABORATORY Monocytes % 11.9 % [facility] LABORATORY Monocyte Abs 0.9 0.3 - 0.9 [facility] x10(3)/[facility] LABORATORY Eosinophils % 6.3 % [facility] LABORATORY Eosinophils Abs 0.5 (H) 0.0 - 0.4 [facility] x10(3)/[facility] LABORATORY Basophils % 1.0 % [facility] LABORATORY Basophils Abs 0.1 0.0 - 0.1 [facility] x10(3)/[facility] LABORATORY Immature Gran % 0.30 % [facility] LABOR[facility]ORY Comment: Immature granulocytes(IG's)percentage an d absolute count will include metamyelocytes, myelocytes, and promyelo cytes. Blood smears from CBCs yielding IG's will be scanned manually for concor dance. If this scan disagrees with the automated IG or if promyelocytes are not ed, a manual differential will be performed. Blanca Gran Abs 0.02 0.00 - 0.04 x10(3)/[facility] Y [facility] LABORATORY Specimen Anatomical Collection Method Collection Time Receive d Time (Source) Location / / Volume Laterality Blood specimen 03/29/2019 1:45 PM 019 1:49 (specimen) EST PM EST Resulting Agency Comment Spec In Lab Champ Valentine [facility] HEMATOLOGY ORDERABLES Performing Organization Address City/State/[place] [address] (ABNORMAL) Hemogram (03/29/2019 1:45 PM EST) Analysis Performed At Patho logist Time Signature WBC 7.9 4.0 - 9.5 [place] [place] x10(3)/[facility] LABORATORY RBC 3.63 (L) 4.00 - [place] [place] 5.21 [facility] x10(6)/[facility] LABORATORY Hemoglobin 11.1 (L) 11.7 - [facility] [place] 15.5 gm/dL [facility] LABORATORY Hematocrit 33.2 (L) 35.7 - [facility] 45.8 % [facility] MCV 91.5 82.6 - [facility] 94.4 [facility] LABORATORY MCH 30.6 27.1 - [place] [place] 32.0 pg [facility] LABORATORY MCHC 33.4 31.7 - [place] 35.0 gm/dL [facility] LABORATORY Platelets 228 145 - 357 [facility] x10(3)/[facility] LABORATORY RDWSD 49.1 (H) 37.0 - [place] 46.0 [facility] LABORATORY RDWCV 14.6 (H) 11.5 - [facility] VICENTE 14.1 % [facility] LABORATORY MPV 10.5 7.6 - 12.9 [place] [place] LABORATORY nRBC % Auto 0.0 % [facility] LABORATORY nRBC Abs Auto 0.000 0.000 - [facility] [place] 0.000 [facility] x10(3)/[facility] LABORATORY Specimen Anatomical Collection Method Collection Time Receive d Time (Source) Location / / Volume Laterality Blood specimen 03/29/2019 1:45 PM 019 1:49 (specimen) EST PM EST Resulting Agency Comment Spec In Lab Champ ENGLE HEMATOLOGY ORDERABLES Performing Organization Address City/[facility]/ZIP Code Phon e Number [place] [phone] (ABNORMAL) Basic Metabolic Panel (non-fasting) (03/29/2019 1:45 PM EST) P athologist Signature Glucose Lvl 75 65 - 199 [facility] mg/dL [facility] LABORATORY Comment: Diabetes: >=200 mg/dL plus symp toms BUN 38 (H) 8 - 18 mg/dL [facility] LABORATORY Creatinine 2.49 (H) 0.70 - 1.20 mg/dL [facility] LABORATORY Sodium 136 135 - 145 mmol/L [facility] LABORATORY Potassium 2.7 (Critical) 3.5 - 5.0 mmol/L [facility] LABORATORY Comment: Result rechecked. Called by: eloisa, Read back by: Angelique witt, Date/Time:03/29/19 14:32. Please note: ??Patients with WBC >100,00 0 may have falsely elevated Potassium levels. ??For accurate Potassium quantif ication in these patients send serum separator tube (gold top) for subsequent determinations. ??Contact the Clinical Chemistry Laboratory if there are any qu estions. Chloride 99 98 - 107 mmol/L [facility] LABORATORY CO2 21 (L) 22 - 31 mmol/L [facility] LABORATORY Anion Gap 16 (H) 5 - 15 mmol/L [facility] LABORATORY Calcium 9.0 8.5 - 10.5 mg/dL [facility] LABORATORY Estimated GFR 19 (L) >=60 mL/min/1.73 m?? [facility] LABORATORY Comment: The eGFR was calculated using the CKD-EP I equation. As with all creatinine based estimates of kidney function, eGFR values calculated with the CKD-EPI equation are not accurate in patients wi th acute kidney failure, extremes of body mass or the acutely ill. http://[employer] in[employer]/[facility]ARTnkf eGFR 22 (L) >=60 mL/min/1.73 m?? [facility] LABORATORY Comment: The eGFR was calculated using the CKD-EP I equation. As with all creatinine based estimates of kidney function, eGFR values calculated with the CKD-EPI equation are not accurate in patients wi th acute kidney failure, extremes of body mass or the acutely ill. http://[employer]/[facility]ARTnkf Specimen Anatomical Collection Method Collection Time Receive d Time (Source) Location / / Volume Laterality Blood specimen 03/29/2019 1:45 PM 019 1:49 (specimen) EST PM EST Resulting Agency Comment Spec In Lab Tyron Kemp MD CHEMISTRY ORDERABLES Performing Organization Address City/[facility]/[place] [address] Phosphorus (03/29/2019 1:45 PM EST) P athologist Signature Phosphorus 3.7 2.5 - 4.5 [facility] mg/dL [facility] LABORATORY Specimen Anatomical Collection Method Collection Time Receive d Time (Source) Location / / Volume Laterality Blood specimen 03/29/2019 1:45 PM 019 1:49 (specimen) EST PM EST Resulting Agency Comment Spec In Lab Tyron Kemp MD CHEMISTRY ORDERABLES Performing Organization Address City/[facility]/[place] [address] Albumin Level (03/29/2019 1:45 PM EST) P athologist Signature Albumin 3.9 3.2 - 5.2 [facility] [place] gm/dL [facility] LABORATORY Specimen Anatomical Collection Method Collection Time Receive d Time (Source) Location / / Volume Laterality Blood specimen 03/29/2019 1:45 PM 019 1:49 (specimen) EST PM EST Resulting Agency Comment Spec In Lab Tyron Kemp MD CHEMISTRY ORDERABLES Performing Organization Address City/[facility]/[place] [address] (ABNORMAL) Uric acid (03/29/2019 1:45 PM EST) P athologist Signature Uric Acid 8.6 (H) 2.5 - 6.5 [facility]ENT[facility] mg/dL [facility] LABORATORY Specimen Anatomical Collection Method Collection Time Receive d Time (Source) Location / / Volume Laterality Blood specimen 03/29/2019 1:45 PM 019 1:49 (specimen) EST PM EST Resulting Agency Comment Spec In Lab Tyron Kemp MD CHEMISTRY ORDERABLES Performing Organization Address City/[facility]/[place] [address] PTH (03/29/2019 1:45 PM EST) athologist Signature PTH 42 15 - 65 [facility] pg/mL [facility] Specimen Anatomical Collection Method Collection Time Receive d Time (Source) Location / / Volume Laterality Blood specimen 03/29/2019 1:45 PM 019 1:49 (specimen) EST PM EST Resulting Agency Comment Spec In Lab Tyron Kemp MD CHEMISTRY ORDERABLES Performing Organization Address City/[facility]/ZIP Code Phon e Number [address] Gold Tube HOLD (03/29/2019 1:45 PM EST) athologist [facility] Gold Hold Sample in [facility] LABORATORY Specimen Anatomical Collection Method Collection Time Receive d Time (Source) Location / / Volume Laterality Blood specimen 03/29/2019 1:45 PM 019 1:49 (specimen) EST PM EST Tyron Kemp MD CHEMISTRY ORDERABLES Performing Organization Address City/[facility]/[place] [address] (ABNORMAL) Protein/Creatinine Ratio, urine (03/29/2019 1:40 PM EST) athologist Signature U Creatinine 70 mg/dL [facility] LABORATORY U Protein Ran 94 (H) 0 - 12 [facility] mg/dL [facility] LABORATORY Prot/Cre Ratio 1.3 ratio [facility] LABORATORY Specimen Anatomical Collection Method Collection Time Receive d Time (Source) Location / / Volume Laterality Urine specimen 03/29/2019 1:40 PM 019 1:50 (specimen) EST PM EST Resulting Agency Comment Spec In Lab Tyron Kemp MD URINE ORDERABLES Performing Organization Address City/[facility]/[place] [address] documented in this encounter Visit Diagnoses Diagnosis CKD (chronic kidney disease) stage 5, GF R less than 15 ml/min Chronic kidney disease, Stage V documented in this encounter Care Teams Electrical Installation Supervisor Relationship Specialty Start Date End Date Sanjuanita Lee MD PCP - General 03/05/13 12/23/[address] [place] [address] documented as of this encounter
--- OUTSIDE RECORDS SUMMARY | 2022-02-22 23:31 | XMS_ITS | Encounter Summary ---
:1950 Author Organization [facility] Address [place] [id number] Care Team Providers Name Role Phone Sanjuanita Lee MD Primary Care Provider Reason for Referral Diagnostic Test (Routine) - Closed Specialty Diagnoses / Procedures Referred By Contact Refer red To Contact Cardiology Diagnoses Acute on chronic systolic heart failure Lavelle Feliz MD [facility] Non-Inv Card Lab Procedures Echocardiogram Transthoracic([facility]) [facility] [place] [address] [place] [address] Fax: Referral ID Status Reason Start Date Expiration Date Visits V isits Requested Authorized [id number] Closed Specialty 06/21/2019 06/20/2020 1 1 Service Requested Reason for Visit Reason Comments Congestive Heart Failure Hypertension Pre-Transplant Work-up Ekg Consultation (Routine) - Canceled Specialty Diagnoses / Procedures Referred By Contact Refer red To Contact Cardiology Diagnoses Stage 5 chronic kidney disease Pre-transplant evaluation for kidney transplant Brent Salinas MD Costa, Salvatore P, MD [facility] TRANSPLANT [facility]GERY CARDIOLOGY DEPT. [place], [place] [id number] [place] [address] Fax: Referral ID Status Reason Start Date Expiration Date Visits V isits Requested Authorized [id number] Canceled Consult, 06/08/2019 06/07/2020 1 1 Test & Treat Encounter Details Date Type Department Care Team Description 06/21/2019 Office Visit Cardiology at [facility] Lavelle Feliz, Acute on chronic systolic he art failure (Primary Dx); [facility] [place] [address] CARDIOLOGY DEPT. [phone] [place], [place] [address] (Wo rk) Social History Tobacco [...] Sign Reading Time Taken Comments Blood Pressure 137/69 06/21/2019 10:31 AM EST Pulse 66 06/21/2019 10:31 AM EST Temperature - - Respiratory Rate - - Oxygen Saturation 96% 06/21/2019 10:31 AM EST Inhaled Oxygen Concentration - - Weight 41.3 kg (91 lb) 06/21/2019 10:31 AM EST Height 153.7 cm (5' 0.5) 06/21/2019 10:31 AM EST Body Mass Index 17.48 06/21/2019 10:31 AM EST documented in this encounter Progress Notes Lavelle Feliz MD - 06/21/2019 10:40 AM EST Reason for Consult: Preoperative Cardiovascular Risk Assessment HPI: Kidney and donor status: 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 Not currently on dialysis. Potential kidney donor (son, who is in [place]). Functional status: Lives in [facility]. Can walk up a flight of stairs. No chest pain. No shortness of breath recently but thinks that she has been in the hospital about 6 times in the last 18 monthsfor shortness of breath, hypoxia, pulmonary edema. She underwent renal bypass in August 2018 (after prior failed stenting) and improved - but did require hospitalization in Dec and Jan 2019. Medication adjustments have helped and she has been stable since January 2019. No PND/orthopnea (since hospitalization in Dec/Jan), no pedal edema (also since being in the hospital). Currently taking lasix 20 mg po bid. Weight has been stable. She is chronically low, 77-87 lbs. Was about 115 lbs prior to her kidney trouble. She has not gained any fluid weight. She is also followed by Dr. Horner at [facility]. Cardiac History and Prior Cardiac Testing: #renal artery bypass 08/2018 #echo Dec 2018: 1. The left ventricular chamber size is normal. Mild concentric left ventricular hypertrophy is observed. There is diffuse hypokinesis present. Global left ventricular systolic function is severely reduced. Ejection fraction is estimated to be 20-25%. Doppler assessment is consistent with elevated left sided filling pressure. 2. The right ventricle is normal in size. Right ventricular global systolic function is low normal. 3. The left atrium is severely dilated. The right atrium appears normal. 4. There is mild to moderate (1-2+/4+) mitral regurgitation present. There is mild to moderate (1-2+/4+) tricuspid regurgitation present. 5. The estimated pulmonary artery systolic pressure is 47 mmHg. 6. See remainder of report for additional findings. #nuclear scan Dec 2018: ??FINDINGS: ?? No fixed or reversible perfusion defects are present. ?? Functional analysis: ?? Myocardial function: Mild global hypokinesis. Left ventricular ejection fraction: 47 % (normal greater than than 50%). ?? INCIDENTAL CT FINDINGS: See separate CT report for additional findings. ?? IMPRESSION 1. No ischemia or scar. 2. Left ventricular function is mildly reduced with LVEF 47%. Wall motion abnormalities as above. From the hospitalization in Dec 2018 ([facility]): Ms. 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 ?? The patient presented to the [facility] ED??yesterday??with??c/o??progressively worsening??SOB??over the last few months more prominent on exertion while walking uphill. As per the patient, she had been evaluated by her Nephrology at [facility] on Thursday and found to be hypertensive and medication adjustment was done. However she does not remember the plan on her medication regimen (No recent Nephrology note found in the system). She may have missed a few medication for the last few weeks. She is following ahealth/low tin diet. After she saw her Telephone Services Sales Representative, she stated that BP readings have been getting better. She was at the infusion center yesterday for iron infusion that was switched from oral iron supp due to stomach discomfort. After having her iv iron, her sob remarkably worsened and she was sentto the ED via ambulance. Along her sob, she has been having temporary moderate upper abdomen discomfort that has not changed and was described as something stuck in her belly and involving the whole upper abdomen and back. She has had a few episodes of dark colored stool over the last year that she attributes to iron pills. Her Upper GI endoscopy was back in July this year that was unremarkable. Shewas started on Zantac 150 mg BID by PCP due to ongoing abdominal symptoms. Denied having nausea, vomiting, fever, chills, orthopnea, pnd, leg swelling, calf tenderness.? In [facility] ED, her BP:??180's/100's,??HR: 70, Spo2: low 90s on??3L NC. On exam Presenting EKG showed NSR, LVH voltage criteria and??STD??on inferolateral leads but unchanged??fromSeptember 2018. A??non-con CT chest/abdomen done at [facility] that showed??Asc aor 3.5cm, abd aneurysm 3.9 cm??w/o??Dissection (but not ruled out completely due to the lack of contrast). Troponin I positive at OSH 0.17, 0.22, then 0.05??and proBNP >35K. BUN/Cre 59/3.42??here at [facility] and remained steady. In [facility]??ED bedside Echo reportedly with new WMA's.??Fast Bedside US showed no evidence of dissection. Vascular team strongly felt that acute dissection of AAA highly unlikely. The patient received ASA 324 mg po, IVP Labetalol 20 mg x2 for BP control. Therefore, given ongoing chest and abdominal pain, elevated Troponin level and apparently severely reduced LVEF 30% from 54% on August 2018, Cardiology consultation was called for admission with a diagnosis of Hypertensive emergency??and??NSTEMI. ROS: Patient perception of overall health: fair Weight: stable, under weight Signs of infection: No fevers, chills, or sweats Eyes: No recent changes in vision Ears, Nose, Throat: No reported pain or symptoms Dentition: stable, no recent problems. CV: see above. Pulm: no cough. GI: No nausea or vomiting. No abdominal pain. Musculo-skeletal: no reported pain or weakness Neuro: alert and oriented x 3 Gait: able to walk without assistance. Past Medical History: Patient Active Problem List Diagnosis ??? Pre-transplant evaluation for CKD (chronic kidney [...] without rupture ??? Viral hepatitis B acute Current Medications: Current Outpatient Medications Medication Sig Dispense Refill ??? furosemide (Lasix) [...] (E.C.) Take 81 mg by mouth daily. Exam: Vitals: 06/21/19 1031 BP: 137/69 Pulse: 66 SpO2: 96% Weight: 41.3 kg (91 lb) Height: 153.7 cm (5' 0.5) Overall: thin female, Body mass index is 17.48 kg/m??. Skin: no new rashes HEENT: no significant abnormalities Neck: JVP normal, no carotid bruit Lungs: clear to ascultation, no wheezes or crackles Cardiac: regular rate and rhythm. No murmurs, rubs or gallops. Abdominal: no pain on palpitation, normal bowel sounds, no masses Extremities: no edema Other pertinent labs/tests: Results for PRETTY HARMON ( ) as of 06/21/2019 10:44 Ref. Range 05/24/2019 13:16 Creatinine Latest Ref Range: 0.70 - 1.20 mg/dL 2.31 (H) eGFR Latest Ref Range: >=60 mL/min/1.73 m?? 21 (L) Echo from today (06/21/19): 1. The left ventricular chamber size is [...] 2018, there has been recovery of LV function Assessment and Plan: 68 year old female with CKD stage IV (previously stage V) secondary to HTN (history of YING not amenable to stenting, s/p renal artery bypass in August 2018) who is seeking a kidney transplant. She is not on dialysis but is hoping to go direct to transplant (no AVF or port). Her son is a potential donor. He lives in [place]. Her cardiac history is significant for multiple [...] WMA. Her most recent BUN/Cr are 31/2.3. She has been clinically stable with no significant volume overload for at least 3 months (since her hospitalization in Jan 2019). She remains on daily low dose lasix. Weight is stable with no signs or symptoms of CHF. Her current cardiac regimen includes: -ASA, BB (coreg 12.5 bid), no ABBY but is on isosorbide/hydralazine (20 mg tid, 25 mg tid respectively), low dose statin (atorva 20), amlodipine 5, clonidine prn for SBP > 200. She is very careful with a low salt diet. No changes needed to her medical regimen at this time. Discussed cardiac update with the renal transplant team. Follow-up: -she will continue to be seen by Dr. Horner at [facility], but I will see her as well until she undergoes kidney transplant q 6-12 months. Next appointment with me in clinic in 6 months or prn. documented in this encounter Plan of Treatment Scheduled Procedures Name Priority Associated Diagnoses Date/Time EGD, UPPER GI ENDOSCOPY Gastroesophageal reflux disease, esophagitis presence not specifi ed documented as of this encounter Procedures Procedure Name Priority Date/Time Associated Diagnosis Comme nts EKG 12-LEAD Routine 06/21/2019 10:33 AM Acute on chronic Resu lts for this EST systolic heart procedure are in the failure results section . documented in this encounter Results ECHOCARDIOGRAM LMTD W/O CON W LMTD SPEC DOPP, COLOR DOPP (06/21/2019 1:51 PM EST) P athologist Signature EF 59 HEARTLAB SYSTEM Anatomical Region Laterality Modality Other Specimen (Source) Anatomical Location Collection Method / Collectio n Time Received Time / Laterality Volume 06/21/2019 Narrative 06/21/2019 2:25 PM EST Procedure: ?Transthoracic Echocardiogram Patient: ?TERELL Eckert ? (Age): 1950(68y) Med Rec#: ? [id number] ?Sex: ?F ? Site Loc: ? [facility] ?Ht / Wt: ??153.7(cm)/41.3( Pt. Loc: ?Echo Lab ?BSA: ?1.34 Study Date: ?? 06/21/2019 ?Pt. Type: Outpatient Tape: ? Referring: GERMAN Reading: Marbin Ritchie ([id number]) Sales Exhibitor: Lisa Kraft Diagnosis: *Acute on chronic systolic (congestive) heart failure (I50.23) BP: ? 137/69 SUMMARY: 1. The left ventricular chamber size is normal. There is normal global left ventricular systolic function with 3D EF of 59%, GLS= - 14% (GE E95), and no wall motion abnormalities. 2. The right ventricle is normal in size . Right ventricular global systolic function is normal. 3. The cardiac valves appear structurall y and functionally normal. 4. The pericardium appears normal and th ere is no evidence of a pericardial effusion. 5. Compared to the images of Dec 2018, there has been recovery of LV function Findings ? : Study Quality: ? Adequate Left Ventricle: ? The left ventricul ar chamber size is normal. ?Mild concentric left ventricular h ypertrophy is observed. ?There is normal global left ventri cular systolic function. ?The quantitative left ventricular ejection fraction by biplane Whitley's method is 56%. ?The quantitative left ventricular ejection fraction by 3-D rendering is 59%.GLS= - 14% (GE E95) ?There are no left ventricular segm ental wall motion abnormalities. ?A false chord is observed in the l eft ventricle. Right Ventricle: ? The right ventric le is normal in size. ?Right ventricular global systolic function is normal. ?Pulmonary artery hypertension coul d not be assessed due to inadequate tricuspid regurgitation jet. ?The estimated right atrial pressur e is 3 mmHg. Aortic Valve: ? The aortic valve is tricuspid. ?Focal aortic leaflet calcification is visualized. ?There is no evidence of aortic sara ve stenosis. ?There is a trace of aortic regurgi tation present. Mitral Valve: ? The mitral valve vinny flets are mildly thickened. ?There is no evidence of mitral cornelius nosis. ?There is trace mitral regurgitatio n present. Tricuspid Valve: ? The tricuspid sara ve appears normal in structure and function. ?There is trace tricuspid regurgita tion present. Pericardium: ? The pericardium appea rs normal and there is no evidence of a pericardial effusion. Aorta: ? The ascending aorta is norm al in size. Venous: ? The inferior vena cava khoa ears normal in size. ?There is a greater than 50% respir atory change in the inferior vena cava dimension. Misc: ? The cardiac valves appear st ructurally and functionally normal. ?Two-dimensional echo, limited spec tral Doppler and color Doppler performed. ?Three-dimensional echocardiogram p erformed. ?TYLER performed Chambers 2D ?Value ?Units (Range) ? IVSd (2D) ? 1.54 ? cm ? LVPWd (2D) ?1.23 ? cm ? IVS:LVPW ratio (2D) 1.25 ? ratio ? RWT (2D) ?0.84 ? ratio ? RWT PW (2D) ? 0.75 ? ratio ? LVIDd (2D) ?3.28 ? cm ? LVIDs (2D) ?2.53 ? cm ? LVIDd (2D) index ?2.44 ? cm/m2 ? LVIDs (2D) index ?1.88 ? cm/m2 ? LV FS (2D) ?22.78 ?% ? EF Teichholz (2D) ?? 46.98 ?% ? Ascending Ao ?2.9 ?cm (2 - 3.5) ? Volumes/Mass ?Value ?Units (Range) ? LV ESV SP 4CH (MOD) 29.14 ? ml ? LV ESV SP 2CH (MOD) 26.44 ? ml ? LV EDV BP ? 63.13 ?ml ? LV ESV BP ? 28.06 ?ml ? LV EDV BP index ? 46.96 ?ml/m2 ? LV ESV BP index ? 20.87 ?ml/m2 ? BP EF (MOD) ? 55.55 ?% ? 3D LVEF ? 59 ? % ? 3D EDV ?73 ? ml ? 3D ESV ?60 ? ml ? Global Longiitudinal-14 ?% (-30 - -10) ? LV mass (2D) ?155.15 ? g ? LV mass (2D) index ??115.42 ? g/m2 ? Diastolic/Systolic Function ?Value ?Units (Range) ? MV E-wave Vmax ?0.83 ? m/sec ? MV deceleration ezgm395.81 ? m sec ? MV A-wave Vmax ?1.24 ? m/sec ? MV E:A ratio ?0.67 ? ratio ? LV septal e' Vmax ?? 0.03 ? m/sec ? LV lateral e' Vmax ??0.04 ? m/sec ? LV average e' Vmax ??0.04 ? m/sec ? LV E:e' septal ratio27.51 ? ratio ? LV E:e' lateral rati20.63 ? ratio ? LV average E:e' rati23.58 ? ratio ? Tricuspid Valve ?Value ?Units (Range) ? RAP ? 3 ?mmHg ? Wall Motion: Segment Name ?Rest ? Base-Anteroseptal ?? Normal ? Base-Anterior ? Normal ? Base-Anterolateral ??Normal ? Base-Posterolateral Normal ? Base-Inferior ? Normal ? Base-Inferoseptal ?? Normal ? Mid-Anteroseptal ?Normal ? Mid-Anterior ?Normal ? Mid-Anterolateral ?? Normal ? Mid-Posterolateral ??Normal ? Mid-Inferior ?Normal ? Mid-Inferoseptal ?Normal ? Grandy-Septal ? Normal ? Grandy-Anterior ? Normal ? Grandy-Lateral ?Normal ? Grandy-Inferior ? Normal ? [place]y-Tip ?Normal ? This report has been electronically sign ed by: _ Marbin Ritchie M.D. ? 06/21/2019 14:24:29 [facility] Procedure Note Marbin Ritchie MD - 06/21/2019Formatti ng of this note might be different from the original. Procedure: Transthoracic Echocardiogram Patient: TERELL Eckert (Age): [birth year](68y) Med Rec#: [id number] Sex: F Site Loc: [facility] Ht / Wt: 153.7(cm)/41.3( Pt. Loc: Echo Lab BSA: 1.34 Study Date: 06/21/2019 Pt. Type: Outpati ent Tape: Referring: COSTASALVATOREP Reading: Marbin Ritchie ([id number]) Sales Exhibitor: Lisa Kraft Diagnosis: *Acute on chronic systolic (congestive) heart failure (I50.23) BP: 137/69 SUMMARY: 1. The left ventricular chamber size is normal. There is normal global left ventricular systolic function with 3D EF of 59%, GLS= - 14% (GE E95), and no wall motion abnormalities. 2. The right ventricle is normal in size . Right ventricular global systolic function is normal. 3. The cardiac valves appear structurall y and functionally normal. 4. The pericardium appears normal and th ere is no evidence of a pericardial effusion. 5. Compared to the images of Dec 2018, there has been recovery of LV function Findings : Study Quality: Adequate Left Ventricle: The left ventricular lawson mber size is normal. Mild concentric left ventricular hypert rophy is observed. There is normal global left ventricular systolic function. The quantitative left ventricular eject ion fraction by biplane Whitley's method is 56%. The quantitative left ventricular eject ion fraction by 3-D rendering is 59%.GLS= - 14% (GE E95) There are no left ventricular segmental wall motion abnormalities. A false chord is observed in the left v entricle. Right Ventricle: The right ventricle is normal in size. Right ventricular global systolic funct ion is normal. Pulmonary artery hypertension could not be assessed due to inadequate tricuspid regurgitation jet. The estimated right atrial pressure is 3 mmHg. Aortic Valve: The aortic valve is tricus pid. Focal aortic leaflet calcification is v isualized. There is no evidence of aortic valve st enosis. There is a trace of aortic regurgitatio n present. Mitral Valve: The mitral valve leaflets are mildly thickened. There is no evidence of mitral stenosis . There is trace mitral regurgitation pre sent. Tricuspid Valve: The tricuspid valve khoa ears normal in structure and function. There is trace tricuspid regurgitation present. Pericardium: The pericardium appears nor mal and there is no evidence of a pericardial effusion. Aorta: The ascending aorta is normal in size. Venous: The inferior vena cava appears n ormal in size. There is a greater than 50% respiratory change in the inferior vena cava dimension. Misc: The cardiac valves appear structur ally and functionally normal. Two-dimensional echo, limited spectral Doppler and color Doppler performed. Three-dimensional echocardiogram [facility] med. TYLER performed Chambers 2D Value Units (Range) IVSd (2D) 1.54 cm LVPWd (2D) 1.23 cm IVS:LVPW ratio (2D) 1.25 ratio RWT (2D) 0.84 ratio RWT PW (2D) 0.75 ratio LVIDd (2D) 3.28 cm LVIDs (2D) 2.53 cm LVIDd (2D) index 2.44 cm/m2 LVIDs (2D) index 1.88 cm/m2 LV FS (2D) 22.78 % EF Teichholz (2D) 46.98 % Ascending Ao 2.9 cm (2 - 3.5) Volumes/Mass Value Units (Range) LV ESV SP 4CH (MOD) 29.14 ml LV ESV SP 2CH (MOD) 26.44 ml LV EDV BP 63.13 ml LV ESV BP 28.06 ml LV EDV BP index 46.96 ml/m2 LV ESV BP index 20.87 ml/m2 BP EF (MOD) 55.55 % 3D LVEF 59 % 3D EDV 73 ml 3D ESV 60 ml Global Longiitudinal-14 % (-30 - -10) LV mass (2D) 155.15 g LV mass (2D) index 115.42 g/m2 Diastolic/Systolic Function Value Units (Range) MV E-wave Vmax 0.83 m/sec MV deceleration kiph953.81 msec MV A-wave Vmax 1.24 m/sec MV E:A ratio 0.67 ratio LV septal e' Vmax 0.03 m/sec LV lateral e' Vmax 0.04 m/sec LV average e' Vmax 0.04 m/sec LV E:e' septal ratio27.51 ratio LV E:e' lateral rati20.63 ratio LV average E:e' rati23.58 ratio Tricuspid Valve Value Units (Range) RAP 3 mmHg Wall Motion: Segment Name Rest Base-Anteroseptal Normal Base-Anterior Normal Base-Anterolateral Normal Base-Posterolateral Normal Base-Inferior Normal Base-Inferoseptal Normal Mid-Anteroseptal Normal Mid-Anterior Normal Mid-Anterolateral Normal Mid-Posterolateral Normal Mid-Inferior Normal Mid-Inferoseptal Normal Grandy-Septal Normal Grandy-Anterior Normal Grandy-Lateral Normal Grandy-Inferior Normal Grandy-Tip Normal This report has been electronically sign ed by: _ Marbin Ritchie M.D. 06/21/2019 14:24 :29 Images reviewed and interpretation verif ied [facility] Cardiac Ultrasound Laboratory Lavelle Feliz MD ECHO ORDERABLES EKG 12 Lead (06/21/2019 10:33 AM EST) Component Value Ref Range Test Analysis Performed Pathologis t Method Time At Signature Ventricular rate 66 BPM MUSE SYSTEM Atrial Rate 66 BPM MUSE SYSTEM P-R Interval 140 ms MUSE SYSTEM QRS Duration 90 ms MUSE SYSTEM Q-T Interval 430 ms MUSE SYSTEM QTC Calculated 450 ms MUSE SYSTEM (Bezet) Calculated P [place] 67 degrees MUSE SYSTEM Calculated R [place] 56 degrees MUSE SYSTEM Calculated T [place] 80 degrees MUSE SYSTEM INTERPRETATION Normal sinus rhythm MUSE SYSTEM Possible Left atrial enlargement Left ventricular hypertrophy Nonspecfic ST segment changes Abnormal ECG When compared with ECG of 29-MAR-2019 15:19, No significant change was found Confirmed by MD Ifeoma, Marcelo ([id number]) on 06/21/2019 4:30:48 PM Specimen Anatomical Collection Method Collection Time Receive d Time (Source) Location / / Volume Laterality 06/21/2019 10:33 06/21/2019 4:30 AM EST PM EST Lavelle Feliz MD ECG ORDERABLES Performing Organization Address City/State/ZIP Code Phon e Number MUSE SYSTEM documented in this encounter Visit Diagnoses Diagnosis Acute on chronic systolic heart failure - Primary Uncontrolled hypertension Unspecified essential hypertension Acute on chronic systolic heart failure documented in this encounter Care Teams Grain Operations Manager Relationship Specialty Start Date End Date Sanjuanita Lee MD PCP - General 03/05/13 12/23/[address] [place] [address] documented as of this encounter
--- OUTSIDE RECORDS SUMMARY | 2022-02-22 23:31 | XMS_ITS | Encounter Summary ---
:1950 Author Organization [facility] [place] [address] Care Team Providers Name Role Phone Sanjuanita Lee MD Primary Care Provider Encounter Details Date Type Department Care Team Description 06/08/2019 Telephone Solid Organ Transpla nt at [facility] Ilana Rivera, [place] [phone] Social History Tobacco Use Types Packs/Day [...] Telephone Encounter - Ilana Rivera, RN - 06/08/2019 11:05 AM EST I returned Jessa from [facility] Internal Medicine phone call regarding testing for CharleneNaren Chang gave them a copy of the letter she received from the transplant team with the testing required. I spoke withDr. Salinas and I explained to Jessa that Charlene will need a colonoscopy every 5 years so she will need to have one completed for evaluation. Additionally, she will need a vaginal inspection and wellness visit if not completed in the last year. Jessa verbalized understanding. documented in this encounter Plan of Treatment Scheduled Procedures Name Priority Associated Diagnoses Date/Time EGD, UPPER GI ENDOSCOPY Gastroesophageal reflux disease, esophagitis presence not specifi ed documented as of this encounter Visit Diagnoses Not on filedocumented in this encounter Care Teams Retail Customer Service Representative Relationship Specialty Start Date End Date Sanjuanita Lee MD PCP - General 03/05/13 12/23/[address] [place] [address] documented as of this encounter
--- OUTSIDE RECORDS SUMMARY | 2022-02-22 23:31 | XMS_ITS | Encounter Summary ---
:1950 Author Organization [facility] [place] [address] Care Team Providers Name Role Phone Sanjuanita Lee MD Primary Care Provider Encounter Details Date Type Department Care Team Description 04/01/2019 Abstract [place] [facility] [place] [address] Social History Tobacco Use Types Packs/Day [...] filedocumented in this encounter Care Teams Professional Golf Tournament Player Relationship Specialty Start Date End Date Sanjuanita Lee MD PCP - General 03/05/13 12/23/21 [place] [id number] documented as of this encounter
--- OUTSIDE RECORDS SUMMARY | 2022-02-22 23:31 | XMS_ITS | Encounter Summary ---
:1950 Author Organization [facility] Address [address] [place] [address] Care Team Providers Name Role Phone Sanjuanita Lee MD Primary Care Provider Encounter Details Date Type Department Care Team Description 05/19/2019 Office Visit Solid Organ Sapna Riley, Encounter for pre- transplant evaluation for kidney transplant; Transplant at [facility] CKD (chronic kidney disease) stage 5, GF R less than 15 ml/min; [facility] [address] [place], [place] [address] [place] [address] [phone] Social History Tobacco Use Types Packs/Day Years [...] Sign Reading Time Taken Comments Blood Pressure 180/74 05/19/2019 11:03 AM EST Pulse 76 05/19/2019 11:03 AM EST Temperature - - Respiratory Rate - - Oxygen Saturation - - Inhaled Oxygen Concentration - - Weight 41.6 kg (91 lb 12.8 oz) 05/19/2019 11:03 AM EST Height 153.7 cm (5' 0.5) 05/19/2019 11:03 AM EST Body Mass Index 17.63 05/19/2019 11:03 AM EST documented in this encounter Progress Notes Sapna Riley MD - 05/19/2019 11:45 AM EST Initial Evaluation: Kidney Transplantation Date: 05/19/2019 Patient: Charlene Harmon Referred by: Dr. Kemp Today I had the opportunity to meet Charlene Harmon, whom you had referred to me for evaluation for kidney transplant. As you are aware, she is a 68 y.o. female with a history of AAA, HTN, CKD, Hepatitis B, bilateral renal artery stenosis s/pr renal artery bypass in august 2018, systolic heart failure with EF 20-25% with associated cardiomyopathy, mild pulmonary hypertension and CKD. She has not yet starteddialysis and continues to make normal amounts of urine. This past year has included 2 notable hospitalizations for her. In August 2018 she had a hospitalization for attempted stenting of her renal artery stenosis which lasted roughly 20 days and ultimately ended in a renal artery bypass surgery. She went home roughly 5 days after that surgery and reportedly tolerated it well with the exception of having some significant weight loss during the hospitalization. She was also hospitalized back in December with newly diagnosed cardiomyopathy and systolic heart failure with an EF of 20 to 25%. She reports that besides when she eats salt, she has not noticed any symptoms of her cardiac disease such as shortness of breath, chest pain, difficulty breathing, or exercise limitation. She reports that overall she has been well since that time with sodium restriction and denies any other issues with heart failure from that time. Since March she has gained 10 pounds which is primarily muscle weight and not water weight. She reports she maintains a relatively active lifestyle. Past surgical history includes a hysterectomy in 1984 and renal artery bypass in August 2018. Past medical history includes those listed above. Notably her hepatitis B is reportedly treated and her liver function as far she knows is normal. She was never told she had any liver disease, elevatedenzymes and denies any varices or GI bleeds. She has no known allergies. She smoked less than 1/2 pack/day from age [age]. She drinks only a few times a year and references a glass of wine at [employer]. 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 The patient has no history of peripheral vascular disease and denies a history of claudication and rest pain symptoms. There is no history of lower extremity ulcers or amputations. The patient has no history of functional or anatomic urologic disorders. There is no history of urinary retention or recurrent urinary tract infections. There is no known history of cardiac disease and the patient denies a history of chest pain or shortness of breath. Blood Type: A Pos Days on dialysis: (Not currently on dialysis) EPTS: 54 at 05/19/2019 11:30 AM Calculated from: Age: 68 years Does not have Diabetes No prior solid organ transplants Not on dialysis Past Medical History: Past Medical History: Diagnosis Date ??? AAA (abdominal aortic aneurysm) [id number] angiogram; 3.2 cm infrarenal ??? Constipation ??? Dyslipidemia ??? Hypertension ??? Insomnia ??? Peripheral vascular disease ??? Renal artery stenosis R; per 2009 angiogram Past Surgical History: Past Surgical History: Procedure Laterality Date ??? HYSTERECTOMY ? ? PRO CATHETER 1ST ORDER W/WO ART PUNCT/FLUORO/S&I BILATERAL Bilateral 09/01/[address] (FIRST-ORDER), MAIN RENAL ART & ANY ACC, W/S&I; ANDREY (WRVU 6.99) performedby Regan Chen MD at [facility] MAIN OR ??? PRO UPPER GI ENDOSCOPY, DIAGNOSTIC 01/20/2014 EGD, UPPER GI ENDOSCOPY performed by Corby Cano MD at [facility] ENDOSCOPY ??? PRO UPPER GI ENDOSCOPY, DIAGNOSTIC N/A 07/28/2017 EGD, UPPER GI ENDOSCOPY performed by Snow Liao MD at [facility] ENDOSCOPY ??? PRO VEIN BYPASS GRAFT, AORTOILIOFEMORAL N/A 09/07/2018 @BYPASS GRAFT, AORTOILIAC W\ VEIN CONDUIT (WRVU 41.88) performed by Isac Moody MD at [facility] MAIN OR Family History: Family History Problem Relation Age of Onset ??? Hypertension Mother ??? Cervical Cancer Mother ??? Chronic Obstructive Pulmonary Disease Father ??? Hypertension Sister Social History: Social History Tobacco Use ??? Smoking status: Former Smoker Packs/day: 0.50 Years: 45.00 Pack years: 22.50 Types: Cigarettes Last attempt to quit: 2007 Years since quittin.0 ??? Smokeless tobacco: Never Used ??? Tobacco comment: smoked for ~45 years up to 1 ppd at [facility], quit ~1999 Substance Use Topics ??? Alcohol use: Yes Comment: a few glasses of wine, rarely 4 times a year ??? Drug use: No Allergies: Lisinopril Current Meds: Current Outpatient Medications Medication Sig Dispense Refill ??? potassium chloride 20 mEq Tablet Sustained Release TAKE TWO TABLETS BY MOUTH EVERY DAY 30 tablet1 ??? amLODIPine (NORVASC) 5 mg Tablet Take [...] No current facility-administered medications for this visit. ROS: A 10 point review of systems was reviewed with the patient with the following pertinent findings: Specifically, the patient denies weight gain or weight loss, fevers or chills. No vision changes. Nocough or sore throat. No chest pain or palpitations. No orthopnea. No dyspnea on exertion. Normal appetite. No reflux. No changes in bowel or bladder habits. No nausea or vomiting. No constipation. No dysuria or hematuria. No muscle weakness or joint pains. No new skin lesions or rashes. No numbness or tingling. Diarrhea within the last month. No blood. Resolves with dfqv-ccd-gphptdr medication. Physical Exam: BP 180/74 (Patient Position: Sitting) Pulse 76 Ht 153.7 cm (5' 0.5) Wt 41.6 kg (91 lb 12.8 oz) BMI 17.63 kg/m?? Body mass index is 17.63 kg/m??. General: Comfortable. In no apparent distress. Eyes: EOMI. Sclera anicteric. ENMT: Moist mucous membranes. Neck: Supple. No adenopathy. No thyromegaly. Heart: Regular rate and rhythm. Pulmonary: Breathing comfortably Abdomen: Soft, scaphoid, nontender. She has a transverse incision going from her right midabdomen toher left lower abdomen. Vascular: Femoral pulses 2+, Pedal pulses 2+, Radial pulses 2+ Lower extremities: Trace edema. Musculoskeletal: Strength > 5/5 and symmetrical, gait unremarkable. Skin: No jaundice. Without obvious lesion / rash. Nails unremarkable. We performed walking test and walked all the way down the hallway, up 2 flights of stairs to the elevator which brought his back down to the second floor we were able to walk back to her clinic room. Throughout this walk we held a normal conversation, she was not short of breath and we were walking lewis brisk pace. Labs: Lab Results Component Value Date CREATININE 2.49 (H) 03/29/2019 K 2.7 (CRIT) 03/29/2019 GLUCOSE 75 03/29/2019 HCT 33.2 (L) 03/29/2019 WBC 7.9 03/29/2019 PT 12.2 08/29/2018 PTT 30 08/14/2016 INR 1.1 08/29/2018 Assessment: Ms. Charlene Harmon is a 68 y.o. female with a history of hepatitis B status post treatment, hypertension, abdominal aortic aneurysm, renal artery stenosis status post renal artery bypass grafts, cardiomyopathy and systolic dysfunction with an EF of 20 to 25% who presents for evaluation today to be listedfor transplant due to her chronic kidney disease. Despite her list of comorbidities, she seems to befunctionally very vigorous. I was surprised with how well she performed her walk test and was able to hold a conversation while walking briskly and climbing stairs. While being a septuagenarian and having a list of medical problems above would suggest she may not do well with surgery, my impression from the walking test we did and her ability to tolerate her renal artery bypass grafting indicate thatshe will likely be able to tolerate the surgery. I spent quite some time with the patient discussing the risks benefits and alternatives to renal transplantation. I specifically addressed surgical risks as well as the general risks of immunosuppression. The patient does have some risk of new onset diabetes after transplant. We talked about delayed graft function, and how graft survival is related to her overall health and adherence as well as the health of the donor. We also discussed different types of donors and the advantages of living donors. All of her questions have been answered. The standard evaluation for these patients includes, age appropriate cancer screening, dietary, financial, medical and social evaluation. Based on her review, we will also want: Cardiac Clearance: Echocardiogram / Stress Testing. She should see and meet with Dr. Feliz. Urologic Clearance: None needed. Vascular evaluation: ABIs, non-contrast CT from 03/14 shows left EIA better than right. Thank you for sending us this patient and for putting your yanira in the [facility] Transplant Program. We will be discussing her case in our multidisciplinary kidney transplant evaluation committee where I will recommend we list her inactive until her workup is complete. Please do not hesitate to contact me if you have any questions. The number rings directly to my office. Sincerely, Sapna Riley M.D. Solid Organ Transplant Surgery [facility] documented in this encounter Plan of Treatment Scheduled Procedures Name Priority Associated Diagnoses Date/Time EGD, UPPER GI ENDOSCOPY Gastroesophageal reflux disease, esophagitis presence not specifi ed documented as of this encounter Visit Diagnoses Diagnosis Encounter for pre-transplant evaluation for kidney transplant CKD (chronic kidney disease) stage 5, GF R less than 15 ml/min Chronic kidney disease, Stage V Uncontrolled hypertension Unspecified essential hypertension documented in this encounter Care Teams Technical Support Consultant Relationship Specialty Start Date End Date Sanjuanita Lee MD PCP - General 03/05/13 12/23/[address] [place] [address] documented as of this encounter
--- OUTSIDE RECORDS SUMMARY | 2022-02-22 23:31 | XMS_ITS | Encounter Summary ---
:1950 Author Organization [facility] [place] [address] Care Team Providers Name Role Phone Sanjuanita Lee MD Primary Care Provider Reason for Referral Diagnostic Test (Routine) - Closed Specialty Diagnoses / Procedures Referred By Contact Refer red To Contact Cardiology Diagnoses Acute on chronic systolic heart failure Lavelle Feliz MD [facility] Non-Inv Card Lab Procedures Echocardiogram Transthoracic([facility]) [facility] CARDIOLOGY DEPT. [address] [address] Fax: Referral ID Status Reason Start Date Expiration Date Visits V isits Requested Authorized [id number] Closed Specialty 06/21/2019 06/20/2020 1 1 Service Requested Reason for Visit Diagnostic Test (Routine) - Closed Specialty Diagnoses / Procedures Referred By Contact Refer red To Contact Cardiology Diagnoses Acute on chronic systolic heart failure Lavelle Feliz MD [facility] Non-Inv Card Lab Procedures Echocardiogram Transthoracic([facility]) [facility] [place] [address] [place] [address] Fax: Referral ID Status Reason Start Date Expiration Date Visits V isits Requested Authorized [id number] Closed Specialty 06/21/2019 06/20/2020 1 1 Service Requested Encounter Details Date Type Department Care Team Description 06/21/2019 Hospital Encounter Non-Invasive Lavelle Feliz Acute on chronic Cardiology Lab Mariama Holder MD systolic heart [facility] [place] [address] [place], [place] [phone] (Work) [phone] Social History Tobacco Use Types Packs/Day Years [...] by mouth 0 Delayed Release (E.C.) daily. amLODIPine (NORVASC) 5 mg Take 1 tablet [...] Procedure Name Priority Date/Time Associated Comments Diagnosis ECHOCARDIOGRAM LMTD W/O Routine 06/21/2019 1:51 PM Acute on ch ronic Results for this CON W LMTD SPEC DOPP, EST systolic heart proc edure are in COLOR DOPP failure the results section. documented in this encounter Results ECHOCARDIOGRAM LMTD W/O CON W LMTD SPEC DOPP, COLOR DOPP (06/21/2019 1:51 PM EST) P athologist Signature EF 59 HEART[facility] SYSTEM Anatomical Region Laterality Modality Other Specimen (Source) Anatomical Location Collection Method / Collectio n Time Received Time / Laterality Volume 06/21/2019 Narrative 06/21/2019 2:25 PM EST Procedure: ?Transthoracic Echocardiogram Patient: ?HARMON PERTTY B ? (Age): 1950(68y) Med Rec#: ? [id number] ?Sex: ?F ? Site Loc: ? [facility] ?Ht / Wt: ??153.7(cm)/41.3( Pt. Loc: ?Echo Lab ?BSA: ?1.34 Study Date: ?? 06/21/2019 ?Pt. Type: Outpatient Tape: ? Referring: COSTASALVATOREP Reading: Marbin Ritchie ([id number]) Transit Mixer Driver: Lisa Kraft Diagnosis: *Acute on chronic systolic [...] Vmax ?0.83 ? m/sec ? MV deceleration [id number] ? m sec ? MV A-wave Vmax [...] ? Mid-Inferior ?Normal ? Mid-Inferoseptal ?Normal ? Floyd-Septal ? Normal ? Floyd-Anterior ? Normal ? Floyd-Lateral ?Normal ? Floyd-Inferior ? Normal ? Floyd-Tip ?Normal ? This report has been electronically sign ed by: _ Marbin Ritchie M.D. ? 06/21/2019 14:24:29 Images reviewed and interpretation [facility] Cardiac Ultrasound Laboratory Procedure Note Marbin Ritchie MD - 06/21/2019Formatti laura of this note might be different from the original. Procedure: Transthoracic Echocardiogram Patient: TERELL DINH(Age): [birth year](68y) Med Rec#: [id number] Sex: F Site Loc: [facility] Ht / Wt: 153.7(cm)/41.3( Pt. Loc: Echo Lab BSA: 1.34 Study Date: 06/21/2019 Pt. Type: Outpati ent Tape: Referring: COSTASALVATOREP Reading: Marbin Ritchie ([id number]) Transit Mixer Driver: Lisa Kraft Diagnosis: *Acute on chronic systolic [...] Doppler and color Doppler performed. Three-dimensional echocardiogram perfor med. TYLER performed Chambers 2D Value Units [...] MV E-wave Vmax 0.83 m/sec MV deceleration [id number] msec MV A-wave Vmax 1.24 m/sec MV [...] Normal Mid-Posterolateral Normal Mid-Inferior Normal Mid-Inferoseptal Normal Floyd-Septal Normal Floyd-Anterior Normal Floyd-Lateral Normal Floyd-Inferior Normal Floyd-Tip Normal This report has been electronically sign ed by: _ Marbin Ritchie M.D. 06/21/2019 14:24 :29 Images reviewed and interpretation camryn camargo [facility] Cardiac Ultrasound Laboratory Lavelle Feliz MD ECHO ORDERABLES documented in this encounter Visit Diagnoses Diagnosis Acute on chronic systolic heart failure documented in this encounter Care Teams Wheel Braider Relationship Specialty Start Date End Date Sanjuanita Lee MD PCP - General 03/05/13 12/23/[address] [place] [address] documented as of this encounter
--- OUTSIDE RECORDS SUMMARY | 2022-02-22 23:32 | XMS_ITS | Encounter Summary ---
:1950 Author Organization [facility] [place] [address] Care Team Providers Name Role Phone Sanjuanita Lee MD Primary Care Provider Reason for Visit Reason Comments Chronic Kidney Disease Encounter Details Date Type Department Care Team Description 02/14/2019 Office Visit Nephrology Tyron Kemp MD [facility] [place] [address] CKD (chronic kidney disease) stage 5, GF R less than 15 ml/min; Hypertension at [facility] Rigger Up, B None Renovascular hypertension; [facility] Other iro n deficiency anemia; [place] [address] Social History Tobacco Use Types Packs/Day [...] Sign Reading Time Taken Comments Blood Pressure 159/90 02/14/2019 10:30 AM EDT Pulse 82 02/14/2019 10:30 AM EDT Temperature - - Respiratory Rate - - Oxygen Saturation - - Inhaled Oxygen Concentration - - Weight 38.5 kg (84 lb 12.8 oz) 02/14/2019 10:30 AM EDT Height - - Body Mass Index 16.56 01/15/2019 8:46 PM EDT documented in this encounter Patient Instructions Patient InstructionsEva oMntana RN - 02/14/2019 10:20 AM EDT Your blood pressures are great at home - we are not making any changes Your kidney function is still low but slightly better than it was at our last visit. Please read through the Phase One booklet to learn some more about treatment options in the future. Call if you feel differently (consistent symptoms of nausea, vomiting, little appeal for food, itching, change in sleep patterns, worsening energy levels, shortness of breath). These are some of the signs of worsening kidney function. We will see you sooner if you are not feeling well. Please call. Eva COOK-foam dispenser Kidney Disease Nurse Specialist at [facility] Nephrology. documented in this encounter Progress Notes Eva Montana RN - 02/14/2019 10:20 AM EDT [facility] [address] [place] [address] Reason for Clinic Visit: Systems Review and CKD management. Seen in clinic with: Eva Montana RN, CKD RN Specialist CKD related to: uncontrolled HTN and renal ischemia History of Present Illness: History obtained by RN Specialist: Charlene was last seen 01/04/19, eGFR 14. Seen in clinic with her , Rodolfo. She has one admission since for heart failure and HTN. Since that admission, her blood pressure has been in good control. She had one IV iron infusion - and had to be admitted immediately after so declined further infusions. She will be following with Cardiology in [place]. Review of Systems: Sign/Symptom Comments Energy level/fatigue: Most days have been pretty good.Does not have enough energy to do the things she wants to do. Recently retired as of 11/24/18 Change in sleep patterns: Not well josse pew nights. Reflux keeps her up. Nocturia: 1x Appetite changes: Down - has lost weight from 118 to 82 pounds Has discomfort in abdomen with eatingand drinking - recently changed from Zantac to Pepcid due to recall Food aversions: Nothing tastes good - everything is very bland Nausea: Improved Vomiting: None Bowels: Constipation - had diarrhea after taking laxitive Edema: None Shortness of breath: None Orthopnea/PND: No PND - 2 pillows - moves to recliner as breathes heavy lying down Muscle Cramping: None Cold intolerance: Yes Itching: None Bruising/bleeding: None Mental Status Changes: None - reports improving concentration - about 80% Recent Home Blood Pressure Control: Takes 3x daily, brought in logs Recent Home Diabetic [...] coordination Drives - 1.[address] [facility] Functional Status/ Assistive devices Independent Learning Style/Considerations Engagement/Readiness to learn or change Hands on learner Financial/Insurance concerns Employment status 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 [employer] [place] Recently retired as of 11/24/18 Hepatitis B Status: Serum Testing Date of Testing Results Hep B sAb/Hep B sAg Vaccination Status: Yes No Hepatitis B Vaccination Given Date First Dose Second Dose Third Dose Education: AAKP Phase One Booklet, Options DVD, Kidney Beginnings, Decision Aid, other: Anticipated Renal Replacement Therapy Plan: Transplant evaluation: Not done yet Fistula Date/Type of Initial Access/Surgeon: Bruit: Yes No Thrill: Yes No Maturation: Yes No Temperature changes: Yes No Sensation changes: Yes No Pain: Yes No Incision Appearance: Other Comments: * Vaccinations: - Influenza - Pneumococcal Conjugate (13 Valent) - Pneumococcal polyvalent - 23 - Zostavax PMH: Patient Active Problem List Diagnosis Code [...] renal failure, stage 4 (severe) N18.4, D63.1 Allergies Allergen Reactions ??? Lisinopril Rise in creatinine Outpatient Medications Marked as Taking for the 02/14/19 encounter (Office Visit) with Tyron Kemp MD Medication Sig Dispense Refill ??? famotidine (PEPCID) 20 mg Tablet Take [...] 3 times daily. 90 tablet 11 ??? atorvastatin (LIPITOR) 20 mg Tablet Take [...] mg by mouth daily. Physical Exam: BP 159/90 Pulse 82 Wt 38.5 kg (84 lb 12.8 oz) BMI 16.56 kg/m?? Gen: WD WN female in NAD [...] for CHARLENE HARMON ( ) as of 02/14/2019 14:02 Ref. Range 01/20/2019 04:29 02/14/2019 09:57 WBC Latest Ref Range: 4.0 - 9.5 x10(3)/mcL 7.0 8.6 RBC Latest Ref Range: 4.00 - 5.21 x10(6)/mcL 4.10 3.26 (L) Hemoglobin Latest Ref Range: 11.7 - 15.5 gm/dL 12.7 9.8 (L) Hematocrit Latest Ref Range: 35.7 - 45.8 % 36.8 29.0 (L) MCV Latest Ref Range: 82.6 - 94.4 fL 89.8 89.0 MCH Latest Ref Range: 27.1 - 32.0 pg 31.0 30.1 MCHC Latest Ref Range: 31.7 - 35.0 gm/dL 34.5 33.8 RDWSD Latest Ref Range: 37.0 - 46.0 fL 49.2 (H) 53.4 (H) RDWCV Latest Ref Range: 11.5 - 14.1 % 15.6 (H) 16.4 (H) Platelets Latest Ref Range: 145 - 357 x10(3)/mcL 271 307 MPV Latest Ref Range: 7.6 - 12.9 fL 12.1 10.5 Sodium Latest Ref Range: 135 - 145 mmol/L 125 (L) 134 (L) Potassium Latest Ref Range: 3.5 - 5.0 mmol/L 4.0 4.0 Chloride Latest Ref Range: 98 - 107 mmol/L 83 (L) 100 CO2 Latest Ref Range: 22 - 31 mmol/L 25 20 (L) Anion Gap Latest Ref Range: 5 - 15 mmol/L 17 (H) 14 BUN Latest Ref Range: 8 - 18 mg/dL 74 (H) 25 (H) Creatinine Latest Ref Range: 0.70 - 1.20 mg/dL 3.02 (H) 2.62 (H) eGFR Latest Ref Range: >=60 mL/min/1.73 m?? 15 (L) 18 (L) eGFR Latest Ref Range: >=60 mL/min/1.73 m?? 17 (L) 21 (L) Glucose Fasting Latest Ref Range: 65 - 99 mg/dL 97 Glucose Lvl Latest Ref Range: 65 - 199 mg/dL 121 Calcium Latest Ref Range: 8.5 - 10.5 mg/dL 9.8 8.9 Magnesium Latest Ref Range: 0.69 - 1.07 mmol/L 1.01 Phosphorus Latest Ref Range: 2.5 - 4.5 mg/dL 3.2 Albumin Latest Ref Range: 3.2 - 5.2 gm/dL 3.7 Ferritin Latest Ref Range: 30 - 400 ng/mL 303 Iron Latest Ref Range: 30 - 150 mcg/dL 40 TIBC Latest Ref Range: 250 - 450 mcg/dL 228 (L) Iron Saturation Latest Ref Range: 20 - 50 % 18 (L) U Protein Ran Latest Ref Range: 0 - 12 mg/dL 208 (H) PTH Latest Ref Range: 15 - 65 pg/mL 27 Prot/Cre Ratio Latest Units: ratio 2.1 U Creatinine Latest Units: mg/dL 100 Problem/Goal/Assessment/Plan: Problem: Chronic Kidney Disease Goal: Reduce rate of progression Education for CKD Stage specific issues Results: Estimated GFR (CKD-EPI): 18 ml/min/1.73m2 CKD Stage 4 Potassium Level - 4.0 CO2 level - 20 (Did not tolerate Sodium Bicarbonate) Uric Acid level - 8 on 01/04/19 Changes discussed with RN Specialist: Your kidney function is still low but slightly better than itwas at our last visit. Please read through the Phase One booklet to learn some more about treatment options in the future. Call if you feel differently (consistent symptoms of nausea, vomiting, little appeal for food, itching, change in sleep patterns, worsening energy levels, shortness of breath). These are some of the signs of worsening kidney function. We will see you sooner if you are not feeling well. Problem: Management of Anemia related to Chronic Kidney Disease (CKD) Goal: Hgb 9.5-10.9 g/dl Ferritin>100ng/ml TSAT>20% Today's Results Hgb - 9.8 Ferritin - 303 TSAT - 18 Receiving erythropoetic stimulating agent? No Last IV Iron replacement therapy (Venofer), Date : Dec 2018 received 1 iron infusion - declines additional infusions Changes discussed with RN Specialist: Problem: Hypertension Goal: Urine alb:cr ratio <30mg/g - 140/90, Urine alb:cr ratio > 30mg/g - 130/80 Sodium intake < 2 Gm per day. Results: BP today - 159/90 Changes discussed with RN Specialist: Home Bps much better in the 130-140 range. Your blood pressures are great at home - we are not making any changes Problem: Proteinuria Goal: Pro:Cr ratio <0.2mg/mg Today's results: Pro:Cr ratio 2.1 Changes discussed with RN Specialist: None A/P: Problem: Bone Disease Goal: Stage 3 PTH: 35-70 pg/ml Phos 2.7-4.6 Ca 8.5-10.5mg/dl Stage 4 PTH: 70-110 pg/ml Phos 2.7-4.6 Ca 8.5-10.5mg/dl Stage 5 PTH: 150-300 pg/ml Phos 3.5-5.5 Ca 8.5-10.5mg/dl Results: PTH today -27 (pt not taking calcitriol) Phos today -3.2 (pt not taking binders) Calcium today - 8.9 Changes discussed with RN Specialist: None Patient intolerant of alakali therapy. Problem: Nutrition Goal: Albumin > 4.0gm/dl BMI 20-25 kg/m2 Results: Albumin today - 3.7 Changes discussed with RN Specialist: Encouraged healthy eating Problem: Dyslipidemia Goal: LDL < 100 mg/dl Results: LDL today - Changes discussed with RN Specialist: Pt on Atorvastatin 20 mg daily Problem: Findings: Changes discussed with RN Specialist: Referral: Summary: 68-year-old female with CKD stage IV/V presents for follow-up and care management clinic. In the interval since last visit patient was hospitalized with CHF/hypertensive incident and her medications were reconciled at that point. She is currently taking amlodipine 5 mg, hydralazine 25 mg 3 times daily carvedilol 12.5 mg twice daily and Isodril 20 mg 3 times daily. She has not required clonidine as needed. EGFR is 18 mL/min which is improved from last visit. Patient reports overall feeling better and her appetite is improving. Hemoglobin at 9.8 mg/dL is below goal and her most recent hospitalization they believe was provoked by iron infusion, this therapy in the future given propensity forvolume overload (only 50cc). Patient will do her best to eat foods with high iron content including lean red meat/hamburger and spinach. Repeat iron studies are pending diligent blood pressure log [place] all within goal. Bone mineral labs are checked and are acceptable. We will plan for follow-up in approximately 2 months with a plan for emphasis on end-stage renal disease education and planning. 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
--- OUTSIDE RECORDS SUMMARY | 2022-02-22 23:32 | XMS_ITS | Encounter Summary ---
:1950 Author Organization [facility] Address [address] [place] [address] Care Team Providers Name Role Phone Sanjuanita Lee MD Primary Care Provider Encounter Details Date Type Department Care Team Description 02/09/2019 Orders Only Nephrology Diana Mixon, CKD (chr onic kidney disease) stage 5, GFR less than 15 ml/min; Hypertension at [facility] RN Anemia of chronic renal failure, stage 4 (severe) [facility] NEPHROLOGY [place] [id number] Social History Tobacco Use Types Packs/Day Years [...] of this encounter Results Gold Tube HOLD (02/14/2019 9:57 AM EDT) P athologist Signature Gold Hold Sample in [facility]. [facility] Specimen Anatomical Collection Method Collection Time Receive d Time (Source) Location / / Volume Laterality Blood specimen 02/14/2019 9:57 AM 019 (specimen) EDT 10:06 AM EDT Tyron Kemp MD CHEMISTRY ORDERABLES Performing Organization Address City/[facility]/[place] [address] PTH (02/14/2019 9:57 AM EDT) P athologist Signature PTH 27 15 - 65 [facility] pg/mL [facility] Specimen Anatomical Collection Method Collection Time Receive d Time (Source) Location / / Volume Laterality Blood specimen 02/14/2019 9:57 AM 019 (specimen) EDT 10:07 AM EDT Resulting Agency Comment Spec In Lab Tyron Kemp MD CHEMISTRY ORDERABLES Performing Organization Address City/[facility]/ZIP Code Phon e Number [address] Albumin Level (02/14/2019 9:57 AM EDT) P athologist Signature Albumin 3.7 3.2 - 5.2 [place] [facility] gm/dL [facility] Specimen Anatomical Collection Method Collection Time Receive d Time (Source) Location / / Volume Laterality Blood specimen 02/14/2019 9:57 AM 019 (specimen) EDT 10:06 AM EDT Resulting Agency Comment Spec In Lab Tyron Kemp MD CHEMISTRY ORDERABLES Performing Organization Address City/State/[place] [address] Phosphorus (02/14/2019 9:57 AM EDT) P athologist Signature Phosphorus 3.2 2.5 - 4.5 [place] mg/dL [facility] Specimen Anatomical Collection Method Collection Time Receive d Time (Source) Location / / Volume Laterality Blood specimen 02/14/2019 9:57 AM 019 (specimen) EDT 10:06 AM EDT Resulting Agency Comment Spec In Lab Tyron Kemp MD CHEMISTRY ORDERABLES Performing Organization Address City/State/ZIP [place] [address] (ABNORMAL) Basic Metabolic Panel (non-fasting) (02/14/2019 9:57 AM EDT) P athologist Signature Glucose Lvl 121 65 - 199 [facility] mg/dL [facility] Comment: Diabetes: >=200 mg/dL plus symp toms BUN 25 (H) 8 - 18 mg/dL [facility] Creatinine 2.62 (H) 0.70 - 1.20 mg/dL [facility] Sodium 134 (L) 135 [...] estions. Chloride 100 98 - 107 mmol/L [facility] CO2 20 (L) 22 - 31 mmol/L [facility] Anion Gap 14 5 - 15 mmol/L [facility] Calcium 8.9 8.5 - 10.5 mg/dL [facility] Estimated GFR 18 (L) >=60 mL/min/1.73 m?? [facility] Comment: The eGFR was calculated using the CKD-EP I equation. As with all creatinine based estimates of kidney function, eGFR values calculated with the CKD-EPI equation are not accurate in patients wi th acute kidney failure, extremes of body mass or the acutely ill. http://[employer]/DHMCnkf eGFR 21 (L) >=60 mL/min/1.73 m?? [facility] Comment: The eGFR was calculated using the CKD-EP I equation. As with all creatinine based estimates of kidney function, eGFR values calculated with the CKD-EPI equation are not accurate in patients wi th acute kidney failure, extremes of body mass or the acutely ill. http://[employer]MC[employer] Specimen Anatomical Collection Method Collection Time Receive d Time (Source) Location / / Volume Laterality Blood specimen 02/14/2019 9:57 AM 019 (specimen) EDT 10:06 AM EDT Resulting Agency Comment Spec In Lab Tyron Kemp MD CHEMISTRY ORDERABLES Performing Organization Address City/State/[place] [address] (ABNORMAL) Protein/Creatinine Ratio, urine (02/14/2019 9:55 AM EDT) Analysis Performed At Patho logist Time Signature U Creatinine 100 mg/dL [facility] U Protein Ran 208 (H) 0 - 12 [facility] mg/dL [facility] Prot/Cre Ratio 2.1 ratio [facility] Specimen Anatomical Collection Method Collection Time Receive d Time (Source) Location / / Volume Laterality Urine specimen 02/14/2019 9:55 AM 019 (specimen) EDT 10:09 AM EDT Resulting Agency Comment Spec In Lab Tyron Kemp MD URINE ORDERABLES Performing Organization Address City/State/[place] [address] documented in this encounter Visit Diagnoses Diagnosis CKD (chronic kidney disease) stage 5, GF R less than 15 ml/min Chronic kidney disease, Stage V Anemia of chronic renal failure, stage 4 (severe) documented in this encounter Care Teams Hand Fretted Instrument Maker Relationship Specialty Start Date End Date Sanjuanita Lee MD PCP - General 03/05/13 12/23/[address] [place] [address] documented as of this encounter
--- OUTSIDE RECORDS SUMMARY | 2022-02-22 23:32 | XMS_ITS | Encounter Summary ---
:1950 Author Organization [facility] [place] [address] Care Team Providers Name Role Phone Sanjuanita Lee MD Primary Care Provider Encounter Details Date Type Department Care Team Description 01/22/2019 Telephone Cardiology Kalee Irving PA [facility] [place] [address] Cardiology Dept [phone] [place] [address] (Wo rk) Social History Tobacco Use Types [...] this encounter Miscellaneous Notes Telephone Encounter - Kalee Irving PA - 01/22/2019 4:18 PM EDT Received call from Charlene. States that she feels well. BP is downtrending. 114/34, 115/58, 117/34 all on 01/21. Today 110/50 to 87/40. I have recommended that she cut amlodipine in half to 5 mg and to NOTadjust carvedilol, Isordil or hydralazine. She will continue to monitor and call with her BP trends. Kalee Irving PA-C [id number] documented in this encounter Plan of Treatment Scheduled Procedures Name Priority Associated Diagnoses Date/Time EGD, UPPER GI ENDOSCOPY Gastroesophageal reflux disease, esophagitis presence not specifi ed documented as of this encounter Visit Diagnoses Not on filedocumented in this encounter Care Teams Vending Machine Refiller Relationship Specialty Start Date End Date Sanjuanita Lee MD PCP - General 03/05/13 12/23/[address] [place] [address] documented as of this encounter
--- OUTSIDE RECORDS SUMMARY | 2022-02-22 23:32 | XMS_ITS | Encounter Summary ---
:1950 Author Organization [facility] [place] [address] Care Team Providers Name Role Phone Sanjuanita Lee MD Primary Care Provider Encounter Details Date Type Department Care Team Description 02/14/2019 Laboratory Appointment Lab 3L [facility] CKD (chronic kidney [facility] disease) stage 5, GFR [facility] less than 15 ml/[place] [id number] Social History Tobacco Use Types Packs/Day Years [...] Date/Time Associated Comments Diagnosis HC VENIPUNCTURE Routine 02/14/2019 9:57 AM CKD (chronic kidney Results for this EDT disease) stage 5, procedure are in GFR less than 15 the results ml/min section. HEMOGRAM Routine 02/14/2019 9:57 AM CKD (chronic kidney Re sults for this EDT disease) stage 5, procedure are in GFR less than 15 the results ml/min section. DIFFERENTIAL, Routine 02/14/2019 9:57 AM CKD (chronic kidney R esults for this AUTOMATED EDT disease) stage 5, procedure are in GFR less than 15 the results ml/min section. GOLD TUBE HOLD Routine 02/14/2019 9:57 AM CKD (chronic kidney Results for this EDT disease) stage 5, procedure are in GFR less than 15 the results ml/min section. IRON AND TIBC Routine 02/14/2019 9:57 AM Results for this EDT procedure are i n the results section. HC CBC,PLT & AUTO Routine 02/14/2019 9:57 AM CKD (chronic kidn ey DIFF EDT disease) stage 5, GFR less than 15 ml/min HC PHOSPHORUS, SERUM Routine 02/14/2019 9:57 AM CKD (chronic k idney Results for this EDT disease) stage 5, procedure are in GFR less than 15 the results ml/min section. FERRITIN Routine 02/14/2019 9:57 AM Results f or this EDT procedure are i n the results section. HC ALBUMIN, SERUM Routine 02/14/2019 9:57 AM CKD (chronic kidn ey Results for this EDT disease) stage 5, procedure are in GFR less than 15 the results ml/min section. BASIC METABOLIC PANEL Routine 02/14/2019 9:57 AM CKD (chronic kidney Results for this (NON-FASTING) EDT disease) stage 5, procedure are in GFR less than 15 the results ml/min section. HC PROTEIN, Routine 02/14/2019 9:55 AM CKD (chronic kidney Re sults for this QUANTITATIVE, URINE EDT disease) stage 5, pro cedure are in GFR less than 15 the results ml/min section. documented in this encounter Results (ABNORMAL) Iron and TIBC (02/14/2019 9:57 AM EDT) Analysis Performed At Patho logist Time Signature [facility] 40 30 - [facility] TIBC 228 (L) 250 - 450 [facility] Iron Saturation 18 (L) 20 - 50 % [facility] Specimen Anatomical Collection Method Collection Time Receive d Time (Source) Location / / Volume Laterality Blood specimen Venous Draw / 02/14/2019 9:57 AM 2018 (specimen) Unknown EDT 10:06 AM EDT Resulting Agency Comment Spec In Lab Tyron Kemp MD CHEMISTRY ORDERABLES Performing Organization Address City/[facility]/ZIP Code Phon e Number [address] Ferritin (02/14/2019 9:57 AM EDT) P athologist Signature Ferritin 303 30 - 400 [facility] ng/mL [facility] Comment: Pediatric reference ranges not verified at [facility], interpret with caution. Reference ranges for females greater letty n 50 years of age approach values for men, i.e., 30-400 ng/mL. Specimen Anatomical Collection Method Collection Time Receive d Time (Source) Location / / Volume Laterality Blood specimen No Charge / 02/14/2019 9:57 AM 019 (specimen) Unknown EDT 10:06 AM EDT Resulting Agency Comment Spec In Lab Tyron Kemp MD CHEMISTRY ORDERABLES Performing Organization Address City/[facility]/ZIP [facility] Phon e Number [address] (ABNORMAL) Differential, Automated (02/14/2019 9:57 AM EDT) Patholo gist Method Time Signature Neutrophils % 69.9 % [facility] Neutr Abs (ANC) 6.03 1.70 - [facility] 6.10 [facility] x10(3)/[facility] LABORATORY Lymphocytes % 9.7 % [facility] Lymphocytes Abs 0.8 (L) 0.9 - 3.2 [facility] x10(3)/[facility] LABORATORY Monocytes % 11.9 % [facility] Monocyte Abs 1.0 (H) 0.3 - 0.9 [facility] x10(3)/[facility] LABORATORY Eosinophils % 7.0 % [facility] Eosinophils Abs 0.6 (H) 0.0 - 0.4 [facility] x10(3)/[facility] LABORATORY Basophils % 0.8 % [facility] Basophils Abs 0.1 0.0 - 0.1 [facility] x10(3)/[facility] LABORATORY Immature Gran % 0.70 % [facility] Comment: Immature granulocytes(IG's)percentage an d absolute count will include metamyelocytes, myelocytes, and promyelo cytes. Blood smears from CBCs yielding IG's will be scanned manually for concor dance. If this scan disagrees with the automated IG or if promyelocytes are not ed, a manual differential will be performed. Blanca Gran Abs 0.06 (H) 0.00 - 0.04 x10(3)/[facility] LABORATORY Specimen Anatomical Collection Method Collection Time Receive d Time (Source) Location / / Volume Laterality Blood specimen 02/14/2019 9:57 AM 019 (specimen) EDT 10:07 AM EDT Resulting Agency Comment Spec In Lab Tyron Kemp MD HEMATOLOGY ORDERABLES Performing Organization Address City/State/[place] [address] (ABNORMAL) Hemogram (02/14/2019 9:57 AM EDT) Analysis Performed At Patho logist Time Signature WBC 8.6 4.0 - 9.5 [facility] x10(3)/[facility] LABORATORY RBC 3.26 (L) 4.00 - [facility] 5.21 [facility] x10(6)/[facility] LABORATORY Hemoglobin 9.8 (L) 11.7 - [facility] 15.5 gm/dL [facility] Hematocrit 29.0 (L) 35.7 - [facility] 45.8 % [facility] MCV 89.0 82.6 - [facility] 94.4 [facility] LABORATORY MCH 30.1 27.1 - [facility] 32.0 pg [facility] MCHC 33.8 31.7 - [facility] 35.0 gm/dL [facility] Platelets 307 145 - 357 [facility] x10(3)/[facility] LABORATORY RDWSD 53.4 (H) 37.0 - [facility] 46.0 [facility] LABORATORY RDWCV 16.4 (H) 11.5 - [facility] 14.1 % [facility]ORY MPV 10.5 7.6 - 12.9 [facility] LABORATORY nRBC % Auto 0.0 % [facility] nRBC Abs Auto 0.000 0.000 - [facility] 0.000 [facility] x10(3)/[facility] LABORATORY Specimen Anatomical Collection Method Collection Time Receive d Time (Source) Location / / Volume Laterality Blood specimen 02/14/2019 9:57 AM 019 (specimen) EDT 10:07 AM EDT Resulting Agency Comment Spec In Lab Tyron Kemp MD HEMATOLOGY ORDERABLES Performing Organization Address City/State/[place] [address] (ABNORMAL) Basic Metabolic Panel (non-fasting) (02/14/2019 9:57 AM EDT) athologist Signature Glucose Lvl 121 65 - 199 [facility] mg/dL [facility] Comment: Diabetes: >=200 mg/dL plus symp toms BUN 25 (H) 8 - 18 mg/dL [facility] Creatinine 2.62 (H) 0.70 - 1.20 mg/dL [facility] Sodium 134 (L) 135 - [...] estions. Chloride 100 98 - 107 mmol/L [facility] CO2 20 (L) 22 - 31 mmol/L [facility] Anion Gap 14 5 - 15 mmol/L [facility] Calcium 8.9 8.5 - 10.5 mg/dL [facility] Estimated GFR 18 (L) >=60 mL/min/1.73 m?? [facility] Comment: The eGFR was calculated using the CKD-EP I equation. As with all creatinine based estimates of kidney function, eGFR values calculated with the CKD-EPI equation are not accurate in patients wi th acute kidney failure, extremes of body mass or the acutely ill. http://[employer]/[facility]SAnkf eGFR 21 (L) >=60 mL/min/1.73 m?? [facility] Comment: The eGFR was calculated using the CKD-EP I equation. As with all creatinine based estimates of kidney function, eGFR values calculated with the CKD-EPI equation are not accurate in patients wi th acute kidney failure, extremes of body mass or the acutely ill. http://[employer]/[facility]ULSAnkf Specimen Anatomical Collection Method Collection Time Receive d Time (Source) Location / / Volume Laterality Blood specimen 02/14/2019 9:57 AM 019 (specimen) EDT 10:06 AM EDT Resulting Agency Comment Spec In Lab Tyron Kemp MD CHEMISTRY ORDERABLES Performing Organization Address City/State/ZIP Code Phon e Number [address] Phosphorus (02/14/2019 9:57 AM EDT) P athologist Signature Phosphorus 3.2 2.5 - 4.5 [facility] mg/dL [facility] Specimen Anatomical Collection Method Collection Time Receive d Time (Source) Location / / Volume Laterality Blood specimen 02/14/2019 9:57 AM 019 (specimen) EDT 10:06 AM EDT Resulting Agency Comment Spec In Lab Tyron Kemp MD CHEMISTRY ORDERABLES Performing Organization Address City/State/ZIP Code Phon e Number [address] Albumin Level (02/14/2019 9:57 AM EDT) P athologist Signature Albumin 3.7 3.2 - 5.2 [facility] gm/dL [facility] Specimen Anatomical Collection Method Collection Time Receive d Time (Source) Location / / Volume Laterality Blood specimen 02/14/2019 9:57 AM 019 (specimen) EDT 10:06 AM EDT Resulting Agency Comment Spec In Lab Tyron Kemp MD CHEMISTRY ORDERABLES Performing Organization Address City/[facility]/[place] [address] PTH (02/14/2019 9:57 AM EDT) P athologist Signature PTH 27 15 - 65 [facility] pg/mL [facility] Specimen Anatomical Collection Method Collection Time Receive d Time (Source) Location / / Volume Laterality Blood specimen 02/14/2019 9:57 AM 019 (specimen) EDT 10:07 AM EDT Resulting Agency Comment Spec In Lab Tyron Kemp MD CHEMISTRY ORDERABLES Performing Organization Address City/[facility]/ZIP Code Phon e Number [address] Gold Tube HOLD (02/14/2019 9:57 AM EDT) P athologist Signature Gold Hold Sample in [facility] LABORATORY Specimen Anatomical Collection Method Collection Time Receive d Time (Source) Location / / Volume Laterality Blood specimen 02/14/2019 9:57 AM 019 (specimen) EDT 10:06 AM EDT Tyron Kemp MD CHEMISTRY ORDERABLES Performing Organization Address City/[facility]/[place] [address] (ABNORMAL) Protein/Creatinine Ratio, urine (02/14/2019 9:55 AM EDT) Analysis Performed At Patho logist Time Signature U Creatinine 100 mg/dL [facility] U Protein Ran 208 (H) 0 - 12 [facility] mg/dL [facility] Prot/Cre Ratio 2.1 ratio [facility] Specimen Anatomical Collection Method Collection Time Receive d Time (Source) Location / / Volume Laterality Urine specimen 02/14/2019 9:55 AM 019 (specimen) EDT 10:09 AM EDT Resulting Agency Comment Spec In Lab Tyron Kemp MD URINE ORDERABLES Performing Organization Address City/[facility]/[place] [address] documented in this encounter Visit Diagnoses Diagnosis CKD (chronic kidney disease) stage 5, GF R less than 15 ml/min Chronic kidney disease, Stage V documented in this encounter Care Teams 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
--- OUTSIDE RECORDS SUMMARY | 2022-02-22 23:33 | XMS_ITS | Encounter Summary ---
:1950 [place] [address] Care Team Providers Name Role Phone Sanjuanita Lee MD Primary Care Provider Reason for Visit Reason Comments Hospital Transfer Auth/Cert Specialty Diagnoses / Procedures Referred By Contact Refer red To Contact Diagnoses Chest pain Dyspnea, unspecified type Chest pain, unspecified type Abdominal aortic aneurysm (AAA) without rupture Procedures EMERGENCY IPI Referral ID Status Reason Start Date Expiration Date Visits Requ ested Visits Authorized [id number] 1 1 Encounter Details Date Type Department Care Team Description 01/07/2019 - Hospital Encounter Cardiac Special Kati Grover MD [facility] [place] [address] Chest pain, unspecified type; 01/20/2019 Care Unit Greyson Corea MD [facility] [place] [address] Abdominal aortic aneurysm (AAA) without rupture; [facility] Rashaun Gates MD [facility] [place] [address] Dyspnea, unspecified type; Thomas Whitney II, MD [facility] [place] [address] Renal artery stenosis; [facility] Acute on chronic systolic heart failure; Drive CKD (chronic kidney disease) stage 5, GFR less than 15 ml/min [place] [id number] Social History Tobacco Use Types Packs/Day [...] Sign Reading Time Taken Comments Blood Pressure 125/57 01/20/2019 12:16 PM EDT Pulse 65 01/20/2019 9:14 AM EDT Temperature 36.5 ??C (97.7 ??F) 01/20/2019 8:00 AM EDT Respiratory Rate 18 01/19/2019 11:23 PM EDT Oxygen Saturation 97% 01/20/2019 8:00 AM EDT Inhaled Oxygen Concentration - - Weight 35.6 kg (78 lb 7.7 oz) 01/20/2019 6:52 AM EDT Height 152.4 cm (5') 01/15/2019 8:46 PM EDT Body Mass Index 15.33 01/15/2019 8:46 PM EDT documented in this encounter Discharge Summaries Kalee Irving PA - 01/20/2019 2:58 PM EDT Images from the original note were not included. Discharge Summary Patient Name: Pretty Harmon Patient Age: 68 y.o. Language: Marshallese Race: White Ethnicity: Not nor Admit date: 01/07/2019 Discharge date and time: 01/20/2019 5:59 PM Attending Physician: Thomas Terrazas II, MD, Edmundo Gates MD, Greyson Jolly MD Discharge Physician: Greyson Jolly MD Follow-up Recommendations for Providers: 1. Discharge weight 35.6 kg, discharge creatinine 3.02 2. Please monitor HR and BP, discharged on coreg 12.5 mg PO BID, amlodipine 10 mg, hydralazine 25 mgtid, Isorsorbide dinitrate 20 mg tid 3. TSH elevated at 8. In this setting Synthroid was up-titrated to 75 mg daily. Please recheck as anoutpatient. 4. Caballero placed for Urinary retention with its removal on 01/20/19. 5. [facility] team to see [facility] 6. Please monitor serum sodium levels, discharge sodium 125. Patient placed on a 1.2 L fluid restriction 7. Please monitor daily weights. No diuretic at discharge in the setting of hyponatremia and euvolemic state Inpatient Provider Contact Information: MD Thomas Atkinson II, MD Emily Swann, APRN Kelly Laflamme PA-C Janette Stender, APRN Cardiovascular Medicine Discharge Diagnoses (Hospital Problems) and Secondary Diagnoses (Chronic Problems): Active Hospital Problems Diagnosis ??? Systolic HF (heart failure) ??? Chest pain ??? Hypertensive urgency ??? CKD (chronic kidney disease) stage 5, GFR less than 15 ml/min ??? Severe protein-calorie malnutrition ??? Renal artery stenosis ??? Abdominal aortic aneurysm (AAA) without rupture Resolved Hospital Problems No resolved problems to display. Active Non-Hospital Problems Diagnosis ??? Uncontrolled hypertension ??? Anemia of chronic renal failure, stage 4 (severe) ??? Hypertensive urgency ??? Viral hepatitis B acute Operations/Major Procedures: Studies: NM Stress Test 01/11/19 IMPRESSION 1. No ischemia or scar. 2. Left ventricular function is mildly reduced with LVEF 47%. Wall motion abnormalities as above. INCIDENTAL CT FINDINGS: Bilateral pleural effusions, right greater than left are present. There is coronary artery and aortic calcification. An unchanged abdominal aortic aneurysm can be seen. Echocardiogram 01/10/2019 SUMMARY: 1. The left ventricular chamber size [...] See remainder of report for additional findings. ?? Renal Duplex 01/10/19 Interpretation: ?? Right: Limited visualization due to overlying bowel gas. There are elevated velocities of 219 cm/s in the RIGHT proximal common iliac artery inflow (previously 248 cm/s); cannot exclude higher velocities in the iliac artery inflow as only a segment of the proximal common iliac artery could be visualized. Unable to visualize the proximal anastomosis and proximal bypass graft The mid to distal bypass graft is patent with low velocity, resistive flow noted. Previous exam also noted low velocities through the mid/distal graft. Patent renal vein. ?? Patent abdominal aorta with an infra renal aneurysm measuring 3.6 x 3.9 cm (previously 3.6 x 3.9 cm). Mural thrombus noted through the aneurysm sac. ?? Right heart Cath 01/14/19: Findings: RA mean - 7 mmHg RV systolic - 42 mmHYg PA s/d/mean - 44/21/31 mmHg PCWP mean - 24 mmHg CO/CI (Yamini) - 3.07/2.44 CO/CI (Td) - 3.75/2.98 ?? Cardiac MRI 01/18/19 Cardiac MRI 01/18/19 IMPRESSION 1. ??Severely reduced left ventricular systolic function quantitated at 25%. Dilated left ventricle with concentric left ventricular hypertrophy. 2. ??Preserved right ventricular size and function 3. ??Septal mid myocardial enhancement consistent with diagnosis of cardiomyopathy. No other enhancement to suggest previous infarct, myocarditis, or infiltrative disease of the left or right ventricles. ?? Bilateral renal artery duplex 01/17/19: Interpretation: Right: Patent distal pilot point main renal artery with no evidence of hemodynamically significant stenosis. Unable to visualize the bypass graft due to overlying bowel gas. No identifiable change compared to previous exam. Left: Patent main renal artery with no evidence of hemodynamically significant stenosis. Velocities at the proximal renal artery are just below threshold for >60% stenosis. Kidney length previously measured 10.4 cm on exam dated 08/30/2018. No significant change compared to previous exam. History of Presentation: Ms. Pretty Harmon is a 68 yo F with PMH of AAA, HTN, CKD V, b/l YING s/p renal artery bypass on 08/2018,hypothyroidism and chronic resolved hepatitis B cleared with theraphy who was transferred from [facility] to [facility] ED for evaluation of suspected AAA rupture. ?? The patient presented to the [facility] ED yesterday with c/o progressively worsening SOB over the last few months more prominent on exertion while walking uphill. As per the patient, she had been evaluated by her Nephrology at [facility] on Thursday and found to be hypertensive and medication adjustment was done. However she does not remember the plan on her medication regimen (No recent Nephrology note found in the system). She may have missed a few medication for the last few weeks. She is following a health/low tin diet. After she saw her [employer], she stated that BP readings have been getting better. She was at the infusion center yesterday for iron infusion that was switched from oral iron supp due to stomach discomfort. After having her iv iron, her sob remarkably worsened and she was sent to the ED via ambulance. Along her sob, [...] in July this year that was unremarkable. She was started on Zantac 150 mg BID by PCP due to ongoing abdominal symptoms. Denied having nausea, vomiting,fever, chills, orthopnea, pnd, leg swelling, calf tenderness. In [facility] ED, her BP: 180's/100's, HR: 70, Spo2: low 90s on 3L NC. On exam Presenting EKG showed NSR, LVH voltage criteria and STD on inferolateral leads but unchanged from September 2018. A non-con CT chest/abdomen done at [facility] that showed Asc aor 3.5cm, abd aneurysm 3.9 cm w/o Dissection (but not ruled out completely due to the lack of contrast). Troponin I positive at OSH 0.17, 0.22, then 0.05 and proBNP >35K. BUN/Cre 59/3.42 here at [facility] and remained steady. In [facility] bedside Echo reportedly with new WMA's. Fast Bedside US showed no evidence of dissection. Vascular teamstrongly felt that acute dissection of AAA highly unlikely. The patient received ASA 324 mg po, IVP Labetalol 20 mg x2 for BP control. Therefore, given ongoing chest and abdominal pain, elevated Troponin level and apparently severely reduced LVEF 30% from 54% on August 2018, Cardiology consultation was called for admission with a diagnosis of Hypertensive emergency and NSTEMI. ?? Hospital Course: Acute Systolic HF New CM, non-ischemic Ultimately she was admitted to cardiology in the setting of ADHF exacerbation and hypertensive urgency. Trop (+) but flat at 0.05x3. She denied any chest pain prior to or after transfer. CT of the chest showed vascular congestion with pleural effusion (R>L). Initiated on IVP diuretics, followed by lasix drip which was up-titrated to 20 mg/hr in setting of low urine output. Echocardiogram revealed significantly reduced LV function with an EF of 20-25% compared to 50% last August. A nuclear stress test was completed which was negative for any ischemia. This was followed by a non-ischemic cardiomyopathy lab panel including KAYLEE, rhematoid factor, lyme titers, HIV, Hep ABC, free lyte chains. Panel was only significant for an elevated ferritin level, elevated B12 level, as well as elevated free light chains on her SPEP, however ratio was normal. She was continued on IV lasix drip until the morning of 01/11 at which time she was felt to be at euvolemic state with a weight of 36.5 kg and a negative fluid balance of ~ 5 L. She was transitioned to Torsemide at 60 mg, but this dose was thought to be to high and so she was decreased to Torsemide 40 mg. She was not started on spironolactone, or ABBY-I/ARB therapy secondary to her renal function. Diuretic therapy was stopped due to hyponatremia and the patient was placed on a fluid restriction. The patient continued to auto diurese with a discharge weight of 35.6 kg. Hypertensive Urgency CKD IV-V Right YING s/p right renal artery bypass BP has been labile this admission with SBP on admission between 180-220 systolic. Antihypertensives were up-titrated with labetalol dosing increased to 400 mg BID, and initiation of scheduled clonidinewith up-titration to 0.3 mg. Home dosing of amlodipine 10 mg continued. Unfortunately her blood pressure trends have been difficult to control in the setting of her right renal artery stenosis. Her left renal artery was last assessed on a duplex in August 2018 and was patent at that time,with no evidenceof hemodynamically significant stenosis. Nephrology was consulted and followed during this admission. She responded to IV diuretics and nephrology recommended ongoing hypertension management, and consid eration of carvedilol versus labetalol given her decreased EF. Vascular also following given historyof renal artery bypass. Repeat right renal artery duplex showed patent right external iliac to rightrenal artery bypass. The vascular surgery team recommended repeat surveillance renal artery duplex and AAA duplex in 6 months. Her BP was extremely difficult to manage. Several medications were tried and several medication changes were made. She was started on coreg which was titarted up to 12.5 mg twice daily. Labetalol was stopped on 01/15/19. Her hydralazine was titrated up to 25 mg TID and isordil 20 mg TID was initiated. H er diuretic was stopped due to her rising renal function. A single dose of lisinopril was trialed but with rising creatinine was stopped. NSTEMI, type II Troponins elevated at 0.05x3. Heparin IV was infusing on transfer and this was continued for 48 hours of therapy. She had no reports of chest pain after transfer to [facility]. On 01/11 she was sent for a nuclear stress test which revealed no reversible ischemia. She was continued on aspirin 81 mg and statin. ?? Underweight/Malnutrition Patient noted to be underweight at Body mass index is 15.33 kg/m??. Albumin noted to be WNL. A dietary consult was placed and she was placed on Nepro for additional calorie supplementation. Hyponatremia The patient's sodium dropped to 116 after it had been 123 the day prior. Patient was seen by nephrology and a fluid restriction was put in place. Her sodium slowly improved to And was 125 on day of discharge. Hypothyroidism TSH remains elevated at 8.1, unchanged from Shy (8.83). In this setting synthroid was up-titrated to 75 mg daily. Please recheck as an outpatient. Constipation, resolving Patient was started on a bowel regimen to assist with constipation. Urinary Retention, Patient was found to have 600 ml on bladder scan and was straight cathed, however she continued to hold 600 ml of urine so a caballero catheter was placed to assist with the bladder strech injury. The caballero was removed after 5 days and she successfully voided prior to discharge. Functional and Cognitive Status: Alert and oriented x 3, ambulatory-independent Important Studies and Lab Data: Labs: Lab Results Component Value Date WBC 7.0 01/20/2019 HGB 12.7 01/20/2019 HCT 36.8 01/20/2019 PLATELET 271 01/20/2019 No results for input(s): INR in the last 168 hours. Lab Results Component Value Date NA 125 (L) 01/20/2019 K 4.0 01/20/2019 CL 83 (L) 01/20/2019 CO2 25 01/20/2019 BUN 74 (H) 01/20/2019 CREATININE 3.02 (H) 01/20/2019 Recent Labs 01/09/19 1244 TSH 4.18 Recent Labs 10/03/18 0329 HA1C 5.5 No results for input(s): CK, TROPONINT in the last 168 hours. Pending Studies and Lab Data: None Discharge Conditions/Prognosis: Ambulatory without shortness of breath, or lightheadedness Discharge to: Home Updated Allergies/ADRs: Allergies Allergen Reactions ??? Lisinopril Rise in creatinine Immunizations Given this Hospitalization: Immunization History Administered Date(s) Administered ??? Hepatitis A Vaccine, Adult 04/07/2014, 12/08/2014, 05/18/2015 ??? Pneumococcal Polyvalent 23 05/18/2015 Discharge Medications: Your Medications New Medications Dose Details carvedilol 12.5 mg Tab Commonly known as: COREG Take 1 tablet by mouth 2 times daily (with meals). 12.5 mg Quantity: 60 tablet Refills: 11 hydrALAZINE 25 mg Tab Commonly known as: APRESOLINE Take 1 tablet by mouth 3 times daily. 25 mg Quantity: 90 tablet Refills: 11 Continued medications with new dosing Dose Details amLODIPine 10 mg Tab Commonly known as: NORVASC Take 1 tablet by mouth daily. What changed: ?? medication strength ?? how much to take 10 mg Quantity: 30 tablet Refills: 11 isosorbide dinitrate 20 mg Tab Commonly known as: ISORDIL Take 1 tablet by mouth 3 times daily. What changed: ?? medication strength ?? how much to take ?? when to take this 20 mg Quantity: 90 tablet Refills: 11 levothyroxine 75 mcg Tab Commonly known as: SYNTHROID Take 1 tablet by mouth daily. What changed: ?? medication strength ?? how much to take 75 mcg Quantity: 30 tablet Refills: 11 Continued medications, unchanged Dose Details acetaminophen 500 mg Tab Commonly known as: TYLENOL Take 1 tablet by mouth every 6 hours. 500 mg Quantity: 30 tablet Refills: 1 aspirin 81 mg Tbec Take 81 mg by mouth daily. 81 mg Refills: 0 atorvastatin 20 mg Tab Commonly known as: LIPITOR Take 1 tablet by mouth every evening. 20 mg Quantity: 90 tablet Refills: 3 cloNIDine 0.1 mg Tab Commonly known as: CATAPRES Take 1 tablet by mouth every 8 hours as needed (Please take 1 tablet, if systolic blood pressure is >200). 0.1 mg Quantity: 30 tablet Refills: 3 gabapentin 100 mg Cap Commonly known as: NEURONTIN Take 200 mg by mouth nightly. 200 mg Refills: 0 ranitidine 150 mg Tab Commonly known as: ZANTAC Take 150 mg by mouth 2 times daily. 150 mg Refills: 0 STOPPED Medications furosemide 20 mg Tab Commonly known as: LASIX furosemide 40 mg Tab Commonly known as: LASIX labetalol 200 mg Tab Commonly known as: NORMODYNE Smoking Status at Discharge: Social History Tobacco Use Smoking Status Former Smoker ??? Packs/day: 0.50 Smokeless Tobacco Never Used Tobacco Comment smoked for ~45 years up to 1 ppd at [place], quit ~2000 Instructions Given to Patient at Discharge: There are no outpatient Patient Instructions on file for this admission. General Instructions Call your doctor if: Chest pain, dyspnea, pain or swelling in legs occurs. If you have non-emergent questions, prior to your follow-up visit please call one of the fruit or nut farmer on Thursday-Thursday between the hours of 8A- 5PM. Cardiology Clinic number @ [phone]; HF clinic at [phone] If off hours contact the cardiac fellow on- call. Hospital Sterile Supervisor can help you. Hospital phone number [phone] Return to work: Resume usual activities as tolerated Driving: Resume if driving prior Follow up Appointments: Doctor Where Phone # Date Time Sanjuanita Lee MD [phone] [facility] [address] 02/01/19 8:30 am Cardiology [facility] [place], [place] [phone] 02/18/19 1:10 pm Home oxygen therapy: N/A Arrangements for VNA/home care: Y Heart Failure Action Plan Call for weight gain of 2 pounds overnight or 5 pounds in 5 days. Future Appointments and Orders Future Appointments and Orders Future Appointments Provider Department Dept Phone 02/18/2019 1:20 PM Rhea Cotter APRN Cardiology at [facility] Arrive at: [facility] [address] [phone] Future Orders Complete By Expires AAA Duplex, Complete/Bilateral [VAS51 Custom] 07/11/2019 (Approximate) 01/10/2020 Process Instructions: There is no in-house vascular laboratory technician available on weeknights (5pm-8am), weekends, or holidays. IF THIS IS A REQUEST FOR AN EMERGENT STUDY DURING THOSE HOURS, please have the senior provider responsible for the patient page the Vascular Surgery Fellow/Senior Resident monument installer to discuss options. Scheduling Instructions: Questions: Indication for study/signs & symptoms: hx 4cm infrarenal AAA Question to be answered: AAA surveillance Preferred location?: [facility] Renal Artery Duplex, Unil [VAS48 Custom] 07/11/2019 (Approximate) 01/10/2020 Process Instructions: There is no in-house vascular laboratory technician available on weeknights (5pm-8am), weekends, or holidays. IF THIS IS A REQUEST FOR AN EMERGENT STUDY DURING THOSE HOURS, please have the senior provider responsible for the patient page the Vascular Surgery Fellow/Senior Resident monument installer to discuss options. Scheduling Instructions: Questions: Laterality: Right Indication for study/signs & symptoms: hx R external iliac to R renal artery bypass Question to be answered: assess bypass graft patency Preferred location?: [facility] Referral to Home Health - at DISCHARGE [FLM9390 CPT(R)] As directed Process Instructions: Scheduling Instructions: Comments: DISCHARGE DOCUMENTATION FOR VNA SERVICES (INCLUDING THOSE PATIENTS WITH MEDICARE COVERAGE BEING DISCHARGED HOME WITH VNA SERVICES AND THOSE PATIENTS WITH MEDICARE COVERAGE WHO ARE BEING DISCHARGED HOME WITH HOSPICE SERVICES) In discussion with the attending physician, it is certified that this patient is under their care and that they, or a Nurse Practitioner, Clinical Nurse Specialist or Physician Roller Leveler Operator who is working directly with them, had a face to face encounter that meets the physician face to face encounter requirements with this patient on 01/20/19 The encounter with the patient was in whole, or in part, for the following medical condition, which is the primary reason for home health care services: systolic heart failure, chronic kidney disease, hyponatremia In discussion with the primary medical team, it is certified that, based on their findings, the indicated services are medically necessary and appropriate for home health services. Patient Location: [address] [address] (home) No relevant phone numbers on file. [address] [place] [address] HOME Health Agency: [facility] PHONE: [phone] FAX: [phone] RN: Assess cardiopulmonary assessment, vital signs, medication management and effectiveness, elimination and nutrition and home safety evaluation Please draw a BMP the week of Jan 24 and fax results to the patient's PCP Start of Care Date: next 24-48 hours All VNA agencies which cover the area of patient's residence have been reviewed, either verbally or in writing, and patient/family have chosen the indicated home health care agency for home services. FOR MEDICARE ONLY: (please delete this section if not Medicare) In discussion with the attending physician, it is certified that the clinical findings support that this patient is homebound i.e. absences from home require considerable and taxing effort; Needs assistance of a person to the leave the home. Please note that any additional orders needs or changes will need to be obtained from this patient'sPCP: Sanjuanita Lee MD [address] [place] [address] Questions: Agency name and contact information: [facility] Patient location post discharge: home What services are requested: Registered Nurse Start date: Responsible MD post discharge contact info: pcp Discharge References/Attachments None Kalee Irving PA-C 01/20/2019 documented in this encounter Discharge Instructions Discharge InstructionsVenKalee almaraz PA - 01/20/2019 2:18 PM EDT Call your doctor if: Chest pain, dyspnea, pain or swelling in legs occurs. If you have non-emergent questions, prior to your follow-up visit please call one of the fruit or nut farmer on Thursday-Thursday between the hours of 8A- 5PM. Cardiology Clinic number @ [phone]; HF clinic at [phone] If off hours contact the cardiac fellow on- call. Hospital Sterile Supervisor can help you. [facility] phone number [phone] Return to work: Resume usual activities as tolerated Driving: Resume if driving prior Follow up Appointments: Doctor Where Phone # Date Time Sanjuanita Lee MD [address] [facility] / [facility] [address] 02/01/19 8:30 am [place]iology [place] [phone] 02/18/19 1:10 pm Home oxygen therapy: N/A Arrangements for VNA/home care: Y Heart Failure Action Plan Call for weight gain of 2 pounds overnight or 5 pounds in 5 days. documented in this encounter Medications at Time of Discharge Medication Sig Dispensed Refills Start Date End Date gabapentin (NEURONTIN) Take 300 mg by mouth [...] 0 Delayed Release (E.C.) daily. amLODIPine (NORVASC) 10 Take 1 tablet by 30 tablet 11 201803/17/2019 mg Tablet mouth daily. isosorbide dinitrate Take 1 tablet by 90 tablet 01/06/2020 (ISORDIL) 20 mg Tablet mouth 3 times daily. levothyroxine (SYNTHROID) Take 1 tablet by 30 tablet 12/2701/06/2020 75 mcg Tablet mouth daily. carvedilol (COREG) 12.5 Take 1 tablet by 60 tablet 201801/06/2020 mg Tablet mouth 2 times daily (with meals). hydrALAZINE (APRESOLINE) Take 1 tablet by 90 tablet 01/2001/06/2020 25 mg Tablet mouth 3 times daily. ranitidine (ZANTAC) 150 Take 150 mg by mouth 0 02/14/2019 mg Tablet 2 times daily. documented as of this encounter Progress Notes Louisa Miller RN - 01/20/2019 2:44 PM EDT DIANE meadows reviewed with Pretty. No additional questions at this time. Disconnected from telemetry. IV removed. Discharged home with with VNA. Greyson Jolly MD - 01/20/2019 10:55 AM EDT Images from the original note were not included. 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 / PA Responsible Attending: Greyson Jolly MD Reason for continued hospitalization: Evaluation and management of systolic heart failure Newly identified cardiomyopathy, cardiac MRI completed CKD stage IV, creat 3.3-3.8 Right heart cath done Thursday01/14/19 Urinary retention, caballero placed 01/16/19 Hyponatremia, fluid restriction of 1.2 L Medication adjustment Tentatively plan for discharge today Active Problems: Active Hospital Problems Diagnosis ??? Systolic HF (heart failure) ??? Chest pain ??? Hypertensive urgency ??? CKD (chronic kidney disease) stage 5, GFR less than 15 ml/min ??? Severe protein-calorie malnutrition Weight loss of 15.8% x 26 days from 47.4 kg (08/29) to 39.9 kg (10/04) and presents with lean muscle loss at clavicles and subcutaneous fat loss at triceps consistent with severe protein calorie malnutrition. ??? Renal artery stenosis ??? Abdominal aortic aneurysm (AAA) without rupture Resolved Hospital Problems No resolved problems to display. Interval History: Patient had a fine night with no chest pain or shortness of breath. Tolerated cardiac MRI. Out of bed ambulating without lightheadedness or pre syncope. Ada jacobsen'jennifer this morning. Awaitvoiding trial. Tentatively plan for discharge today. Adjusting dose of Isordil and hydralazine. Willmonitor BP response for several doses before discharging patient. Review of Systems: Review of Systems Respiratory: Negative for shortness of breath. Cardiovascular: Negative for chest pain. All other systems reviewed and are negative. Telemetry: Heart Rate: [64-72] sinus rhythm with PVCs Meds: Scheduled Meds: ??? isosorbide dinitrate 20 mg Oral TID ??? hydrALAZINE 25 mg Oral TID ??? carvedilol 12.5 mg Oral BID WC ??? polyethylene glycol (MIRALAX)oral powder 17 g Oral BID ??? senna 8.6 mg Oral Daily ??? docusate sodium 100 mg Oral BID ??? heparin (Porcine) 5,000 Units Subcutaneous 2 times per day ??? levothyroxine 75 mcg Oral Daily ??? aspirin 81 mg Oral Daily ??? atorvastatin 20 mg Oral QPM ??? gabapentin 200 mg Oral Nightly ??? sodium chloride 0.9 % (flush) 5 mL Intravenous BID ??? pantoprazole 20 mg Oral Daily ??? amLODIPine 10 mg Oral Daily Continuous Infusions: PRN Meds:bisacodyl, alum-mag hydroxide-simeth, sodium chloride 0.9 % (flush), lidocaine, nitroGLYcerin, acetaminophen Physical Exam: Vital Signs: Last value Range last 24 hrs Temperature Temp: 36.5 ??C (97.7 ??F) Temp: [36.5 ??C (97.7 ??F)-37 ??C (98.6 ??F)] Heart Rate Heart Rate: 65 Heart Rate: [60-72] Blood Pressure BP: 147/70 BP: (134-165)/(56-72) Respiratory Rate Resp: 18 Resp: [18-20] SpO2 SpO2: 97 % SpO2: [95 %-98 %] Intake/Output Summary (Last 24 hours) at 01/20/2019 1055 Last data filed at 01/20/2019 0558 Gross per 24 hour Intake 300 ml Output 1670 ml Net -1370 ml Patient Vitals for the past 168 hrs: Weight 01/20/19 0652 35.6 kg (78 lb 7.7 oz) 01/19/19 0656 35.9 kg (79 lb 2.3 oz) 01/18/19 0618 34.5 kg (76 lb 1.6 oz) 01/17/19 0416 36.8 kg (81 lb 2.1 oz) 01/16/19 0500 37.3 kg (82 lb 3.7 oz) 01/15/19 0541 36.2 kg (79 lb 12.9 oz) Physical Exam Constitutional: She is oriented to person, place, and time. She appears well- developed. No distress. Thin, frail. HENT: Head: Normocephalic and atraumatic. Eyes: Right eye exhibits no discharge. Left eye exhibits no discharge. Neck: Normal range of motion. No JVD present. Cardiovascular: Normal rate and regular rhythm. Pulmonary/Chest: Effort normal. No respiratory distress. She has no wheezes. She has rales. Abdominal: Soft. Bowel sounds are normal. She exhibits no distension. Musculoskeletal: Normal range of motion. She exhibits no edema. Neurological: She is alert and oriented to person, place, and time. Skin: Skin is warm and dry. She is not diaphoretic. Psychiatric: She has a normal mood and affect. Her behavior is normal. Nursing note and vitals reviewed. Lab Comments: Recent Labs 01/20/1942801/19/1951701/18/19 0430 WBC 7.0 8.1 7.5 HGB 12.7 11.7 11.4* HCT 36.8 33.7* 33.5* PLATELET 271 250 258 No results for input(s): INR in the last 168 hours. Recent Labs 01/20/1942801/19/1951701/18/19 0430 NA 125* 124* 120* K 4.0 4.3 3.3* CL 83* 84* 77* CO2 BUN 74* 77* 77* CREATININE 3.02* 3.33* 3.65* No results for input(s): AST, ALT, ALKPHOS, BILITOT, BILIDIR in the last 168 hours. Recent Labs 01/20/19 0429 01/19/19 0518 01/18/19 0430 CALCIUM 9.8 9.1 9.1 MAGNESIUM 1.01 0.98 1.05 No results for input(s): CK, TROPONINT in the last 168 hours. Pertinent Radiographic/Diagnostic Results: Renal artery duplex: 01/17/19 Prelim read only: Interpretation: ?? Right: Patent distal pilot point main renal artery with no evidence of hemodynamically significant stenosis. Unable to visualize the bypass graft due to overlying bowel gas. No identifiable change compared to previous exam. ? Left: Patent main renal artery with no evidence of hemodynamically significant stenosis. Velocities at the proximal renal artery are just below threshold for >60% stenosis. Kidney length previously measured 10.4 cm on exam dated 08/30/2018. No significant change compared to previous exam. ?? Cardiac MRI 01/18/19 IMPRESSION 1. Severely reduced left ventricular systolic function quantitated at 25%. Dilated left ventricle with concentric left ventricular hypertrophy. 2. Preserved right ventricular size and function 3. Septal mid myocardial enhancement consistent with diagnosis of cardiomyopathy. No other enhancement to suggest previous infarct, myocarditis, or infiltrative disease of the left or right ventricles. ?? ECG: HR 62 sinus rhythm with no acute change from prior Assessment: Pretty Harmon is a 68 y.o. female with a past medical history of AAA, hypertension, CKD stage IV-V, bilateral renal artery stenosis status post renal artery bypass August 2018, hypothyroid who presented to [facility] in the setting of acute dyspnea and abdominal pain, and underwent ED-ED transfer dueto OSH provider concern for AAA rupture. Seen by vascular surgery and aneurysmal rupture ruled out (see vascular consult note (01/07) . Ultimately she was admitted to cardiology due in the setting of ADHF exacerbation and hypertensive urgency. Trop (+) but flat at 0.05 x 3. She denies any chest pain. CT of the chest showing vascular congestion with pleural effusion (R>L). Initiated on IVP diuretics, followed by lasix drip which was up-titrated to 20 mg/hr in setting of low urine output. Echocardiogram revealed significantly reduced LV function as noted above. BP has been labile, requiring furtherantihypertensive agents. Unfortunately this has been difficult to control in the setting of her YING. Nephrology consulted and following. Nuclear stress test was negative for ischemia, and work-up is ongoing for her now presumed nonischemic cardiomyopathy. Cardiac MRI showed no infiltrative disease, with dilated LV with concentric LVH. Hyponatremia improved today to 125. Will continue fluid restriction of 1.2 liters. Plan: Hypertensive Urgency Continue telemetry monitoring BP: (134-165)/(56-72) in the past 24 hours We stopped the labetalol and started Coreg 6.25 mg PO BID 01/15/19 Increased Coreg to 12.5 mg BID 01/17/19 Continue amlodipine 10 mg PO daily We stopped clonidine to 0.1 mg BID (had previously taken 0.1 mg BID at home PRN) Restarted hydralazine now at 25 mg TID Added isordil 20 mg TID 01/18/19 Stopped lisinopril after 1 dose given renal function Acute Systolic HF, EF 25% New CM, unclear if ischemic vs non-ischemic Monitor intakes and outputs, daily weights, 2 gm sodium diet Keep K greater than 4 mg/DL, MG greater than 1 mmol/L Echo revealing newly reduced LVEF to 20-25% with diffuse wall motion abnormalities as above Admit ProBNP >70859, repeat level the same Marceline to be approaching euvolemic status with improved symptom management Stopped torsemide dose to 20 mg daily due to hyponatremia Continue close monitoring of renal function, nephrology consulted NICM panel so far positive for elevated ferritin and B12 levels, as well as elevated Kamma and Lambda free light chains, though with normal ratio HF team consult appreciated Cardiac MRI as above NSTEMI, type I vs type II Cardiac enzymes remain flat Received 48 hours of heparin therapy, no additional chest pain Nuclear stress test negative for ischemia Continue ASA 81 mg daily (loaded in the ED) Atorvastatin 40 mg p.o. daily (increased from 20 mg p.o. daily) CKD IV-V Right sided YING s/p right renal artery bypass Followed by Dr. Kemp, creatinine 3.6 on admission from 2.9 last month Creatinine at 3.02 today and BUN at 74 No longer on diuretic Nephrology and vascular surgery consulted and following Acute hyponatremia Initially thought to be secondary to fluid overload, but worsening with diuresis Sodium 125 today, improved Stopped IV lasix drip and po torsemide Fluid restrict to 1.2 liters Underweight Body mass index is 15.33 kg/m??. Suspect severe protein calorie malnutrition however albumin is normal Nutrition consult placed Renal boost supplementation Patient denies weight change ?? Hypothyroidism TSH remains elevated at 8.1-0-> 4.18, (level 8.83 this past September) Free T3/T4 1.3, 1.74 respectively Levothyroxine increased to 75 mg daily ?? FULL CODE This patient was discussed with Greyson Jolly MD. Kalee Irving PA-C 01/20/2019 STAFF ADDENDUM Patient interviewed and examined. Medical record reviewed. I agree with the Intercurrent History Past Medical History Physical Exam Objective Data Assessment and Plan as detailed by Francisco HERNDON, with whom the patient was interviewed, examined, and discussed, withthe following additions and/or exceptions. Stable clinical course. Up and ambulating without difficulty. Stable weight. NA stable at 125. Remains hypertensive. Will try increasing her hydralazine to 30mg TID and isosorbide dinitrate to 20 mg TID. If she tolerates the initial doses will let her go home. F/u in [place] with Dr. Burnett. Bimal Negron MD - 01/19/2019 4:08 PM EDT HYPERTENSION/ NEPHROLOGY PROGRESS NOTE PATIENT: Pretty Harmon : 1950 REASON FOR CONSULTATION: Consulted by cardiology for acute kidney injury on chronic kidney disease, hypertension management. HPI: 68 y.o. female with PMHx significant for stage IV CKD with a creatinine running in the 2.75 range, due to long-standing uncontrolled hypertension and renal ischemia due to renal artery stenosis, rightrenal angioplasty on August 2018, with normal flow in the left kidney, with uncontrolled blood pressuredifficult to control due to hypotension as well as significant elevation of blood pressure at other times, history of abdominal aortic aneurysm, history of congestive heart failure with flash pulmonaryedema, came to the hospital on 01/24/2019 because of significant shortness of breath. Nephrology was consulted for kush on ckd and management of hypertension. Subjective: Patient was seen and examined today. No new complaints, still has the caballero catheter. ROS: 4 point review of sytem was done, everything was negative except for what was mentioned above. MEDICATIONS: ??? hydrALAZINE 20 mg Oral TID ??? isosorbide dinitrate 10 mg Oral TID ??? carvedilol 12.5 mg Oral BID WC ??? polyethylene glycol (MIRALAX)oral powder 17 g Oral BID ??? senna 8.6 mg Oral Daily ??? docusate sodium 100 mg Oral BID ??? heparin (Porcine) 5,000 Units Subcutaneous 2 times per day ??? levothyroxine 75 mcg Oral Daily ??? aspirin 81 mg Oral Daily ??? atorvastatin 20 mg Oral QPM ??? gabapentin 200 mg Oral Nightly ??? sodium chloride 0.9 % (flush) 5 mL Intravenous BID ??? pantoprazole 20 mg Oral Daily ??? amLODIPine 10 mg Oral Daily PHYSICAL EXAM: Last value Range last 24 hrs Temperature Temp: 36.9 ??C (98.4 ??F) Temp: [36.7 ??C (98.1 ??F)-37 ??C (98.6 ??F)] Heart Rate Heart Rate: 60 Heart Rate: [57-65] Blood Pressure BP: 134/56 BP: (133-191)/(56-81) Respiratory Rate Resp: 20 Resp: [16-20] SpO2 SpO2: 98 % SpO2: [96 %-99 %] Patient is awake alert did not seem to be in acute distress no jaundice or mucosa moist Neck- supple trachea central Chest- bilateral air entry present clear. CVS-S1-S2 present Abdomen-nontender nondistended, bowel sounds present., Abdominal bruit present. Extremities-peripheral pulses present, no significant edema Neuro-patient is awake alert, moving all 4 limbs, motor examination is grossly normal. STUDIES: Labs: CBC: Recent Labs 01/19/19 0518 01/18/19 0430 01/17/19 0354 WBC 8.1 7.5 8.3 HGB 11.7 11.4* 11.4* PLATELET 250 258 243 Chemistry: Recent Labs 01/19/19 0518 01/18/19 0430 01/17/19 0354 01/08/19 0004 09/215801/04/19 1252 NA 124* 120* 120* < > 131* 131* 133* K 4.3 3.3* 3.7 < > 4.2 Not Perf 3.6 CL 84* 77* 76* < > 93* 92* 95* CO2 24 25 27 < > 20* 18* 21* BUN 77* 77* 69* < > 59* 61* 44* CREATININE 3.33* 3.65* 3.86* < > 3.42* 3.68* 3.11* GLUCOSE -- -- -- -- 121 121 114 < > = values in this interval not displayed. Recent Labs 01/19/19 0518 01/18/19 0430 01/17/19 0354 01/04/19 1252 11/09/18 1226 09/03/18 0035 CALCIUM 9.1 9.1 9.2 < > 9.7 < > 9.5 < > 8.2* MAGNESIUM 0.98 1.05 0.96 < > -- -- -- < > 0.95 PHOS -- -- -- -- 4.0 -- 4.2 -- 4.4 < > = values in this interval not displayed. LFT's: Recent Labs 01/07/19215801/04/19 1252 10/03/18 0329 06/14/18 1022 BILITOT 0.7 -- <0.2* 0.4 BILIDIR Not Perf -- 0.1 -- ALBUMIN 4.1 3.8 3.4 3.9 ALKPHOS 118* -- 72 57 ALT 33* -- 13 11 AST Not Perf -- IMPRESSION/ RECOMMENDATIONS: 68 y.o. female with PMHx significant for stage IV CKD with a creatinine running in the 2.75 range, due to long-standing uncontrolled hypertension and renal ischemia due to renal artery stenosis, right renal angioplasty on August 2018, with normal flow in the left kidney, with uncontrolled blood pressure difficult to control due to hypotension as well as significant elevation of blood pressure at other times, admitted with congestive heart failure with reduced ejection fraction with an ejection fractionof 20 to 25% this time. Nephro consulted for acute kidney injury on chronic kidney disease . #Acute kidney injury on chronic kidney disease stage IV-most probably secondary to cardiorenal syndrome and component of obstructive uropathy. Patient has chronic kidney disease secondary to hypertensive nephrosclerosis/ischemia due to renal artery stenosis. Creatinine remains stable with fluctuations. Renal duplex done on 01/17- no significant stenosis. Hypertension-patient is currently on amlodipine 10 milligrams p.o. Daily, carvedilol 12.5 bid, Hydralazine 10 tid + Isosorbide dinitrate 10 TID. Blood pressures slightly elevated. CHF with reduced EF- stress test is negative for reversible ischemia. Euvolemic off diuretics. Lznyjssyemqv-tpgzvhpguftu-lzgetofym to congestive heart failure. Potassium today is 4.3, r Bone mineral metabolic syndrome-calcium normal Anemia- s/p iron infusion on on 01/07/19 Recommendation: Can restart ABBY/ARB since her creatinine has been pretty much stable with some fluctuations in between. Continue holding diuretics. Thank you for the consult will follow the patient with you Seen and discussed with Dr.Kaneko Bimal Negron MD 01/19/2019 Associated attestation - Brady Gallo MD - 01/19/2019 8:53 PM EDT Renal Staff Addendum Patient seen and examined with Dr. Negron. I agree with the above note which represents our joint assessment and plan with the following additions: Hyponatremia, Cr slightly improved. BP remains elevated. Agree with increasing hydralazine. Discussed with cardiology. Laura Seay LD - 01/19/2019 12:48 PM EDT Nutrition Progress Note Pretty Harmon is a 68 y.o. female Reason for intervention: Follow up Nutrition Recommendations: ?? Continue 2 g Na diet + [id number] without Renal diet restriction as her K level has not exceeded threshold during admission ?? Nepro Supplements BID ?? Small frequent meals--calorically dense ?? Consider appetite stimulant Patient Active Problem List Diagnosis Code ??? [...] renal failure, stage 4 (severe) N18.4, D63.1 Past Medical History: Diagnosis Date ??? AAA (abdominal aortic aneurysm) [id number] angiogram; 3.2 cm infrarenal ??? Constipation ??? Dyslipidemia ??? Hypertension ??? Insomnia ??? Peripheral vascular disease ??? Renal artery stenosis R; per 2009 angiogram Active Orders Diet Renal diet 2 GM NA; 1200 mL FLUID Frequency: Effective Now Number of Occurrences: Until Specified Nourishments Adult diet Oral Supplements Nepro (Renal) Frequency: Effective Now Number of Occurrences: Until Specified Admit Weight: 37.2 kg Estimated body mass index is 15.46 kg/m?? as calculated from the following: Height as of this encounter: 152.4 cm (5'). Weight as of this encounter: 35.9 kg (79 lb 2.3 oz). Julian Body Weight (IBW): Female patients must weigh at least 45.5 kg to calculate ideal body weight Lab Results Component Value Date NA 124 (L) 01/19/2019 K 4.3 01/19/2019 CL 84 (L) 01/19/2019 CO2 24 01/19/2019 BUN 77 (H) 01/19/2019 CREATININE 3.33 (H) 01/19/2019 GLUCOSE 121 01/08/2019 MAGNESIUM 0.98 01/19/2019 CALCIUM 9.1 01/19/2019 PHOS 4.0 01/04/2019 AST Not Perf 01/07/2019 ALT 33 (H) 01/07/2019 ALKPHOS 118 (H) 01/07/2019 BILITOT 0.7 01/07/2019 BILIDIR Not Perf 01/07/2019 CRP <0.2 06/14/2018 Hyponatremia Elevated BUN and Cr Last Bowel Movement: 01/18/19(per pt) 68 y.o. female with PMHx significant for stage IV CKD with a creatinine running in the 2.75 range, due to long-standing uncontrolled hypertension and renal ischemia due to renal artery stenosis, rightrenal angioplasty on August 2018, with normal flow in the left kidney, with uncontrolled blood pressuredifficult to control due to hypotension as well as significant elevation of blood pressure at other times, history of abdominal aortic aneurysm, history of congestive heart failure with flash pulmonaryedema, came to the hospital on 01/24/2019 because of significant shortness of breath. Nephrology was consulted for kush on ckd and management of hypertension. Assessment: Pt reporting a fair appetite eating ~50% of meals, states she dislikes the food. Drinking Nepro BID,Kiln Repairer discussed appropriate choices and encouraged PO. Pt w/ low BMI, she continues to meet criteria for severe malnutrition. Recommend liberalizing diet as much as possible to encourage intake. TAMI Huber Beeper #: [id number] Greyson Jolly MD - 01/19/2019 11:46 AM EDT Images from the original note were not included. 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 / PA Responsible Attending: Greyson Jolly MD Reason for continued hospitalization: Evaluation and management of systolic heart failure Newly identified cardiomyopathy, cardiac MRI completed CKD stage IV, creat 3.3-3.8 Right heart cath done Thursday01/14/19 Urinary retention, caballero placed 01/16/19 Hyponatremia, fluid restriction of 1.2 L Active Problems: Active Hospital Problems Diagnosis ??? Systolic HF (heart failure) ??? Chest pain ??? Hypertensive urgency ??? CKD (chronic kidney disease) stage 5, GFR less than 15 ml/min ??? Severe protein-calorie malnutrition Weight loss of 15.8% x 26 days from 47.4 kg (08/29) to 39.9 kg (10/04) and presents with lean muscle loss at clavicles and subcutaneous fat loss at triceps consistent with severe protein calorie malnutrition. ??? Renal artery stenosis ??? Abdominal aortic aneurysm (AAA) without rupture Resolved Hospital Problems No resolved problems to display. Interval History: Patient had a fine night with no chest pain or shortness of breath. Tolerated cardiac MRI. Out of bed ambulating once yesterday without lightheadedness or pre syncope. Caballero draining clear yellow urine. Review of Systems: Review of Systems Respiratory: Negative for shortness of breath. Cardiovascular: Negative for chest pain. All other systems reviewed and are negative. Telemetry: HR 55-70 sinus bradycardia, sinus rhythm with PVCs Meds: Scheduled Meds: ??? hydrALAZINE 20 mg Oral TID ??? isosorbide dinitrate 10 mg Oral TID ??? carvedilol 12.5 mg Oral BID WC ??? polyethylene glycol (MIRALAX)oral powder 17 g Oral BID ??? senna 8.6 mg Oral Daily ??? docusate sodium 100 mg Oral BID ??? heparin (Porcine) 5,000 Units Subcutaneous 2 times per day ??? levothyroxine 75 mcg Oral Daily ??? aspirin 81 mg Oral Daily ??? atorvastatin 20 mg Oral QPM ??? gabapentin 200 mg Oral Nightly ??? sodium chloride 0.9 % (flush) 5 mL Intravenous BID ??? pantoprazole 20 mg Oral Daily ??? amLODIPine 10 mg Oral Daily Continuous Infusions: PRN Meds:bisacodyl, alum-mag hydroxide-simeth, sodium chloride 0.9 % (flush), lidocaine, nitroGLYcerin, acetaminophen Physical Exam: Vital Signs: Last value Range last 24 hrs Temperature Temp: 36.8 ??C (98.2 ??F) Temp: [36.7 ??C (98.1 ??F)-37 ??C (98.6 ??F)] Heart Rate Heart Rate: 62 Heart Rate: [57-65] Blood Pressure BP: 158/81 BP: (133-158)/(61-81) Respiratory Rate Resp: 18 Resp: [16-20] SpO2 SpO2: 96 % SpO2: [96 %-99 %] Intake/Output Summary (Last 24 hours) at 01/19/2019 1146 Last data filed at 01/19/2019 0940 Gross per 24 hour Intake 675 ml Output 1175 ml Net -500 ml Patient Vitals for the past 168 hrs: Weight 01/19/19 0656 35.9 kg (79 lb 2.3 oz) 01/18/19 0618 34.5 kg (76 lb 1.6 oz) 01/17/19 0416 36.8 kg (81 lb 2.1 oz) 01/16/19 0500 37.3 kg (82 lb 3.7 oz) 01/15/19 0541 36.2 kg (79 lb 12.9 oz) 01/13/19438 35.8 kg (78 lb 14.8 oz) Physical Exam Constitutional: She is oriented to person, place, and time. She appears well- developed. No distress. Thin, frail. HENT: Head: Normocephalic and atraumatic. Eyes: Right eye exhibits no discharge. Left eye exhibits no discharge. Neck: Normal range of motion. No JVD present. Cardiovascular: Normal rate and regular rhythm. Pulmonary/Chest: Effort normal. No respiratory distress. She has no wheezes. She has rales. Abdominal: Soft. Bowel sounds are normal. She exhibits no distension. Musculoskeletal: Normal range of motion. She exhibits no edema. Neurological: She is alert and oriented to person, place, and time. Skin: Skin is warm and dry. She is not diaphoretic. Psychiatric: She has a normal mood and affect. Her behavior is normal. Nursing note and vitals reviewed. Lab Comments: Recent Labs 01/19/1951701/18/1942901/17/19 0354 WBC 8.1 7.5 8.3 HGB 11.7 11.4* 11.4* HCT 33.7* 33.5* 32.0* PLATELET 250 258 243 No results for input(s): INR in the last 168 hours. Recent Labs 01/19/1951701/18/1942901/17/19 0354 NA 124* 120* 120* K 4.3 3.3* 3.7 CL 84* 77* 76* CO2 24 25 27 BUN 77* 77* 69* CREATININE 3.33* 3.65* 3.86* No results for input(s): AST, ALT, ALKPHOS, BILITOT, BILIDIR in the last 168 hours. Recent Labs 01/19/1951701/18/190 01/17/19 0354 CALCIUM 9.1 9.1 9.2 MAGNESIUM 0.98 1.05 0.96 No results for input(s): CK, TROPONINT in the last 168 hours. Pertinent Radiographic/Diagnostic Results: Renal artery duplex: 01/17/19 Prelim read only: Interpretation: ?? Right: Patent distal pilot point main renal artery with no evidence of hemodynamically significant stenosis. Unable to visualize the bypass graft due to overlying bowel gas. No identifiable change compared to previous exam. ? Left: Patent main renal artery with no evidence of hemodynamically significant stenosis. Velocities at the proximal renal artery are just below threshold for >60% stenosis. Kidney length previously measured 10.4 cm on exam dated 08/30/2018. No significant change compared to previous exam. ?? Cardiac MRI 01/18/19 IMPRESSION 1. Severely reduced left ventricular systolic function quantitated at 25%. Dilated left ventricle with concentric left ventricular hypertrophy. 2. Preserved right ventricular size and function 3. Septal mid myocardial enhancement consistent with diagnosis of cardiomyopathy. No other enhancement to suggest previous infarct, myocarditis, or infiltrative disease of the left or right ventricles. ?? ECG: HR 62 sinus rhythm with no acute change from prior Assessment: Pretty Harmon is a 68 y.o. female with a past medical history of AAA, hypertension, CKD stage IV-V, bilateral renal artery stenosis status post renal artery bypass August 2018, hypothyroid who presented to [facility] in the setting of acute dyspnea and abdominal pain, and underwent ED-ED transfer dueto OSH provider concern for AAA rupture. Seen by vascular surgery and aneurysmal rupture ruled out (see vascular consult note (01/07) . Ultimately she was admitted to cardiology due in the setting of ADHF exacerbation and hypertensive urgency. Trop (+) but flat at 0.05 x 3. She denies any chest pain. CT of the chest showing vascular congestion with pleural effusion (R>L). Initiated on IVP diuretics, followed by lasix drip which was up-titrated to 20 mg/hr in setting of low urine output. Echocardiogram revealed significantly reduced LV function as noted above. BP has been labile, requiring furtherantihypertensive agents. Unfortunately this has been difficult to control in the setting of her YING. Nephrology consulted and following. Nuclear stress test was negative for ischemia, and work-up is ongoing for her now presumed nonischemic cardiomyopathy. Cardiac MRI showed no infiltrative disease, with dilated LV with concentric LVH. Hyponatremia improved today to 124. Will continue fluid restriction of 1.2 liters. Plan: Hypertensive Urgency Continue telemetry monitoring BP: (133-158)/(61-81) in the past 24 hours We stopped the labetalol and started coreg 6.25 mg PO BID 01/15/19 Increased coreg to 12.5 mg BID 01/17/19 continue amlodipine 10 mg PO daily We stopped clonidine to 0.1 mg BID (had previously taken 0.1 mg BID at home PRN) Restarted hydralazine now at 20 mg TID Added isordil 10 mg TID 01/18/19 Stopped lisinopril after 1 dose given renal function Acute Systolic HF, EF 25% New CM, unclear if ischemic vs non-ischemic Monitor intakes and outputs, daily weights, 2 gm sodium diet Keep K greater than 4 mg/DL, MG greater than 1 mmol/L Echo revealing newly reduced LVEF to 20-25% with diffuse wall motion abnormalities as above Admit ProBNP >33112, repeat level the same Marceline to be approaching euvolemic status with improved symptom management Stopped torsemide dose to 20 mg daily Continue close monitoring of renal function, nephrology consulted NICM panel so far positive for elevated ferritin and B12 levels, as well as elevated Kamma and Lambda free light chains, though with normal ratio HF team consult appreciated Cardiac MRI as above NSTEMI, type I vs type II cardiac enzymes remain flat Received 48 hours of heparin therapy, no additional chest pain Nuclear stress test negative for ischemia Continue ASA 81 mg daily (loaded in the ED) Atorvastatin 40 mg p.o. daily (increased from 20 mg p.o. daily) CKD IV-V Right sided YING s/p right renal artery bypass Followed by Dr. Kemp, creatinine 3.6 on admission from 2.9 last month Creatinine at 3.3 today and BUN at 77 No longer on diuretic Nephrology and vascular surgery consulted and following Acute hyponatremia initially though to be secondary to fluid overload, but worsening with diuresis Sodium 120 today, same as yesterday Stopped IV lasix drip Fluid restrict to 1.2 liters Underweight Body mass index is 15.46 kg/m??. Suspect severe protein calorie malnutrition however albumin is normal Nutrition consult placed Renal boost supplementation Patient denies weight change ?? Hypothyroidism TSH remains elevated at 8.1-0-> 4.18, (level 8.83 this past September) Free T3/T4 1.3, 1.74 respectively Levothyroxine increased to 75 mg daily ?? FULL CODE Discussed with MD Greg Atkinson, [facility] TECH 01/19/2019 STAFF ADDENDUM Patient interviewed and examined. Medical record reviewed. I agree with the Intercurrent History Past Medical History Physical Exam Objective Data Assessment and Plan as detailed by Jonel RAE, with whom the patient was interviewed, examined, and discussed, with the following additions and/or exceptions. Improving NA up to 124. Would not add tolvaptan at this point in time. Still moderately hypertensive. Would uptitrate her medications. Was able to ambulate around the unit yesterday. Encouraged her to do this at least 3 times per day. Would hope for DC on Thursday. Bimal Negron MD - 01/18/2019 6:54 PM EDT HYPERTENSION/ NEPHROLOGY PROGRESS NOTE PATIENT: Pretty Harmon : 1950 REASON FOR CONSULTATION: Consulted by cardiology for acute kidney injury on chronic kidney disease, hypertension management. HPI: 68 y.o. female with PMHx significant for stage IV CKD with a creatinine running in the 2.75 range, due to long-standing uncontrolled hypertension and renal ischemia due to renal artery stenosis, rightrenal angioplasty on August 2018, with normal flow in the left kidney, with uncontrolled blood pressuredifficult to control due to hypotension as well as significant elevation of blood pressure at other times, history of abdominal aortic aneurysm, history of congestive heart failure with flash pulmonaryedema, came to the hospital on 01/24/2019 because of significant shortness of breath. Nephrology was consulted for kush on ckd and management of hypertension. Subjective: Patient was seen and examined today. Still hyponatremic Not on supplimental oxygen Creatinine is remaining stable. ROS: 4 point review of sytem was done, everything was negative except for what was mentioned above. MEDICATIONS: ??? isosorbide dinitrate 10 mg Oral TID ??? hydrALAZINE 10 mg Oral TID ??? carvedilol 12.5 mg Oral BID WC ??? polyethylene glycol (MIRALAX)oral powder 17 g Oral BID ??? senna 8.6 mg Oral Daily ??? docusate sodium 100 mg Oral BID ??? heparin (Porcine) 5,000 Units Subcutaneous 2 times per day ??? levothyroxine 75 mcg Oral Daily ??? aspirin 81 mg Oral Daily ??? atorvastatin 20 mg Oral QPM ??? gabapentin 200 mg Oral Nightly ??? sodium chloride 0.9 % (flush) 5 mL Intravenous BID ??? pantoprazole 20 mg Oral Daily ??? amLODIPine 10 mg Oral Daily PHYSICAL EXAM: Last value Range last 24 hrs Temperature Temp: 36.7 ??C (98.1 ??F) Temp: [36.7 ??C (98.1 ??F)-37 ??C (98.6 ??F)] Heart Rate Heart Rate: 57 Heart Rate: [57-60] Blood Pressure BP: 151/64 BP: (126-155)/(55-64) Respiratory Rate Resp: 20 Resp: [16-20] SpO2 SpO2: 99 % SpO2: [98 %-99 %] Patient is awake alert did not seem to be in acute distress no jaundice or mucosa moist Neck- supple trachea central Chest- bilateral air entry present clear. CVS-S1-S2 present Abdomen-nontender nondistended, bowel sounds present., Abdominal bruit present. Extremities-peripheral pulses present, no significant edema Neuro-patient is awake alert, moving all 4 limbs, motor examination is grossly normal. STUDIES: Labs: CBC: Recent Labs 01/18/19 04301/17/19 0354 01/16/19 0520 WBC 7.5 8.3 11.2* HGB 11.4* 11.4* 11.0* PLATELET 258 243 252 Chemistry: Recent Labs 01/18/19 04301/17/19 0354 01/16/19200101/08/19 0004 01/07/19 2159 01/04/19 1252 NA 120* 120* 118* < > 131* 131* 133* K 3.3* 3.7 3.5 < > 4.2 Not Perf 3.6 CL 77* 76* 75* < > 93* 92* 95* CO2 25 27 27 < > 20* 18* 21* BUN 77* 69* 70* < > 59* 61* 44* CREATININE 3.65* 3.86* 3.65* < > 3.42* 3.68* 3.11* GLUCOSE -- -- -- -- 121 121 114 < > = values in this interval not displayed. Recent Labs 01/18/19 0430 01/17/19 0354 01/16/19200101/16/19 1306 01/04/19 1252 11/09/18 1226 09/03/18 0035 CALCIUM 9.1 9.2 9.0 9.3 < > 9.7 < > 9.5 < > 8.2* MAGNESIUM 1.05 0.96 -- 0.88 < > -- -- -- < > 0.95 PHOS -- -- -- -- -- 4.0 -- 4.2 -- 4.4 < > = values in this interval not displayed. LFT's: Recent Labs 01/07/19 2159 01/04/19 1252 10/03/18 0329 06/14/18 1022 BILITOT 0.7 -- <0.2* 0.4 BILIDIR Not Perf -- 0.1 -- ALBUMIN 4.1 3.8 3.4 3.9 ALKPHOS 118* -- 72 57 ALT 33* -- 13 11 AST Not Perf -- IMPRESSION/ RECOMMENDATIONS: 68 y.o. female with PMHx significant for stage IV CKD with a creatinine running in the 2.75 range, due to long-standing uncontrolled hypertension and renal ischemia due to renal artery stenosis, right renal angioplasty on August 2018, with normal flow in the left kidney, with uncontrolled blood pressure difficult to control due to hypotension as well as significant elevation of blood pressure at other times, admitted with congestive heart failure with reduced ejection fraction with an ejection fractionof 20 to 25% this time. Nephro consulted for acute kidney injury on chronic kidney disease . #Acute kidney injury on chronic kidney disease stage IV-most probably secondary to cardiorenal syndrome. Patient has chronic kidney disease secondary to hypertensive nephrosclerosis/ischemia due to renal artery stenosis. Creatinine remains stable with fluctuations. Renal duplex done on 01/17- no significant stenosis. Hypertension-patient is currently on amlodipine 10 milligrams p.o. Daily, carvedilol 12.5 bid, Hydralazine 10 tid. Blood pressures slightly elevated. CHF with reduced EF- stress test is negative for reversible ischemia. Euvolemic off diuretics. Lzwllggmkaki-ztwwztqmvxvp-[id number] to congestive heart failure. Potassium today is 3.3, replaced bythe primary team. Bone mineral metabolic syndrome-calcium normal Anemia- s/p iron infusion on on 01/07/19 Recommendation: Can restart ABBY/ARB since her creatinine has been pretty much stable with some fluctuations in between. Continue holding diuretics. Thank you for the consult will follow the patient with you Seen and discussed with Dr.Kaneko Bimal Negron MD 01/18/2019 Associated attestation - Brady Gallo MD - 01/18/2019 9:35 PM EDT Renal Staff Addendum Patient seen and examined with Dr. Negron. I agree with the above note which represents our joint assessment and plan with the following additions: Cr stable, mild hypokalemia and modest hyponatremia. BP well controlled and she appears euvolemic. Replete K, fluid restrict to 1L/d. Cr rise on lisinopril was mild; it would be reasonable to try low dose ACEI or ARB therapy. If Cr stabilizes below 4, it should be well tolerated. Thomas Terrazas II, MD - 01/18/2019 11:27 AM EDT Images from the original note were not included. 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 / PA Responsible Attending: Thomas Terrazas II, MD Reason for continued hospitalization: Evaluation and management of systolic heart failure Newly identified cardiomyopathy, awaiting cardiac MRI today CKD stage IV, creat 3.3-3.8 Right heart cath done Thursday01/14/19 Urinary retention, caballero placed 01/16/19, Urology consult called in Hyponatremia, fluid restriction of a liter Hypokalemia, replacing K Active Problems: Active Hospital Problems Diagnosis ??? Systolic HF (heart failure) ??? Chest pain ??? Hypertensive urgency ??? CKD (chronic kidney disease) stage 5, GFR less than 15 ml/min ??? Severe protein-calorie malnutrition Weight loss of 15.8% x 26 days from 47.4 kg (08/29) to 39.9 kg (10/04) and presents with lean muscle loss at clavicles and subcutaneous fat loss at triceps consistent with severe protein calorie malnutrition. ??? Renal artery stenosis ??? Abdominal aortic aneurysm (AAA) without rupture Resolved Hospital Problems No resolved problems to display. Interval History: Patient had a fine night with no chest pain or shortness of breath. Had increased amount of urine output yesterday despite low levels overnight. Compliant with fluid restriction. Tolerated increase in carvedilol. Review of Systems: Review of Systems Respiratory: Negative for shortness of breath. Cardiovascular: Negative for chest pain. All other systems reviewed and are negative. Telemetry: HR 55-65 sinus bradycardia, sinus rhythm with no ectopy Meds: Scheduled Meds: ??? isosorbide dinitrate 10 mg Oral TID ??? carvedilol 12.5 mg Oral BID WC ??? polyethylene glycol (MIRALAX)oral powder 17 g Oral BID ??? senna 8.6 mg Oral Daily ??? docusate sodium 100 mg Oral BID ??? heparin (Porcine) 5,000 Units Subcutaneous 2 times per day ??? levothyroxine 75 mcg Oral Daily ??? aspirin 81 mg Oral Daily ??? atorvastatin 20 mg Oral QPM ??? gabapentin 200 mg Oral Nightly ??? sodium chloride 0.9 % (flush) 5 mL Intravenous BID ??? pantoprazole 20 mg Oral Daily ??? amLODIPine 10 mg Oral Daily Continuous Infusions: PRN Meds:bisacodyl, alum-mag hydroxide-simeth, sodium chloride 0.9 % (flush), lidocaine, nitroGLYcerin, acetaminophen Physical Exam: Vital Signs: Last value Range last 24 hrs Temperature Temp: 36.9 ??C (98.4 ??F) Temp: [36.6 ??C (97.9 ??F)-37 ??C (98.6 ??F)] Heart Rate Heart Rate: 60 Heart Rate: [53-60] Blood Pressure BP: 150/61 BP: (124-155)/(53-62) Respiratory Rate Resp: 16 Resp: [16] SpO2 SpO2: 98 % SpO2: [95 %-98 %] Intake/Output Summary (Last 24 hours) at 01/18/2019 1127 Last data filed at 01/18/2019 0600 Gross per 24 hour Intake 570 ml Output 1950 ml Net -1380 ml Patient Vitals for the past 168 hrs: Weight 01/18/19 0618 34.5 kg (76 lb 1.6 oz) 01/17/19 0416 36.8 kg (81 lb 2.1 oz) 01/16/19 0500 37.3 kg (82 lb 3.7 oz) 01/15/19 0541 36.2 kg (79 lb 12.9 oz) 01/13/19 0439 35.8 kg (78 lb 14.8 oz) 01/12/19 0453 35.1 kg (77 lb 6.1 oz) Physical Exam Constitutional: She is oriented to person, place, and time. She appears well- developed. No distress. Thin, frail. HENT: Head: Normocephalic and atraumatic. Eyes: Right eye exhibits no discharge. Left eye exhibits no discharge. Neck: Normal range of motion. No JVD present. Cardiovascular: Normal rate and regular rhythm. Pulmonary/Chest: Effort normal. No respiratory distress. She has no wheezes. She has rales. Abdominal: Soft. Bowel sounds are normal. She exhibits no distension. Musculoskeletal: Normal range of motion. She exhibits no edema. Neurological: She is alert and oriented to person, place, and time. Skin: Skin is warm and dry. She is not diaphoretic. Psychiatric: She has a normal mood and affect. Her behavior is normal. Nursing note and vitals reviewed. Lab Comments: Recent Labs 01/18/19 04301/17/1935301/16/19 0520 WBC 7.5 8.3 11.2* HGB 11.4* 11.4* 11.0* HCT 33.5* 32.0* 30.7* PLATELET 258 243 252 No results for input(s): INR in the last 168 hours. Recent Labs 01/18/1942901/17/1935301/16/192001 NA 120* 120* 118* K 3.3* 3.7 3.5 CL 77* 76* 75* CO2 25 27 27 BUN 77* 69* 70* CREATININE 3.65* 3.86* 3.65* No results for input(s): AST, ALT, ALKPHOS, BILITOT, BILIDIR in the last 168 hours. Recent Labs 01/18/1942901/17/194 01/16/19200101/16/19 1306 CALCIUM 9.1 9.2 9.0 9.3 MAGNESIUM 1.05 0.96 -- 0.88 No results for input(s): CK, TROPONINT in the last 168 hours. Pertinent Radiographic/Diagnostic Results: Renal artery duplex: 01/17/19 Prelim read only: Interpretation: ?? Right: Patent distal pilot point main renal artery with no evidence of hemodynamically significant stenosis. Unable to visualize the bypass graft due to overlying bowel gas. No identifiable change compared to previous exam. ? Left: Patent main renal artery with no evidence of hemodynamically significant stenosis. Velocities at the proximal renal artery are just below threshold for >60% stenosis. Kidney length previously measured 10.4 cm on exam dated 08/30/2018. No significant change compared to previous exam. ?? Cardiac MRI 01/18/19 Pending ECG: HR 62 sinus rhythm with no acute change from prior Assessment: Pretty Harmon is a 68 y.o. female with a past medical history of AAA, hypertension, CKD stage IV-V, bilateral renal artery stenosis status post renal artery bypass August 2018, hypothyroid who presented to [facility] in the setting of acute dyspnea and abdominal pain, and underwent ED-ED transfer dueto OSH provider concern for AAA rupture. Seen by vascular surgery and aneurysmal rupture ruled out (see vascular consult note (01/07) . Ultimately she was admitted to cardiology due in the setting of ADHF exacerbation and hypertensive urgency. Trop (+) but flat at 0.05x3. She denies any chest pain. CT of the chest showing vascular congestion with pleural effusion (R>L). Initiated on IVP diuretics, followed by lasix drip which was up-titrated to 20 mg/hr in setting of low urine output. Echocardiogram revealed significantly reduced LV function as noted above. BP has been labile, requiring further antihypertensive agents. Unfortunately this has been difficult to control in the setting of her YING. Ne phrology consulted and following. Nuclear stress test was negative for ischemia, and work-up is ongoing for her now presumed nonischemic cardiomyopathy. Cardiac MRI for today. Improved urine output yesterday despite no diuretic. Hyponatremia persists with sodium of 120 again today. SBP range 120-150s in the past 24 hours. Plan: Hypertensive Urgency Continue telemetry monitoring BP: (124-155)/(53-62) in the past 24 hours We stopped the labetalol and started coreg 6.25 mg PO BID 01/15/19 Increased coreg to 12.5 mg BID 01/17/19 continue amlodipine 10 mg PO daily We stopped clonidine to 0.1 mg BID (had previously taken 0.1 mg BID at home PRN) We stopped hydralazine Added isordil 10 mg TID 01/18/19 Stopped lisinopril after 1 dose Acute Systolic HF, EF 25% New CM, unclear if ischemic vs non-ischemic Monitor intakes and outputs, daily weights, 2 gm sodium diet Keep K greater than 4 mg/DL, MG greater than 1 mmol/L Echo revealing newly reduced LVEF to 20-25% with diffuse wall motion abnormalities as above Admit ProBNP >38628, repeat level the same Marceline to be approaching euvolemic status with improved symptom management Stopped torsemide dose to 20 mg daily Continue close monitoring of renal function, nephrology consulted NICM panel so far positive for elevated ferritin and B12 levels, as well as elevated Kamma and Lambda free light chains, though with normal ratio HF team consult appreciated Cardiac MRI today given improved renal function NSTEMI, type I vs type II cardiac enzymes remain flat Received 48 hours of heparin therapy, no additional chest pain Nuclear stress test negative for ischemia Continue ASA 81 mg daily (loaded in the ED) Atorvastatin 40 mg p.o. daily (increased from 20 mg p.o. daily) CKD IV-V Right sided YING s/p right renal artery bypass Followed by Dr. Kemp, creatinine 3.6 on admission from 2.9 last month Creatinine at 3.6 today but rising BUN to 77 No longer on diuretic Nephrology and vascular surgery consulted and following Renal duplex done, prelim read only Acute hyponatremia initially though to be secondary to fluid overload, but worsening with diuresis Sodium 120 today, same as yesterday Stopped IV lasix drip Fluid restrict to one liter Underweight Body mass index is 14.86 kg/m??. Suspect severe protein calorie malnutrition however albumin is normal Nutrition consult placed Renal boost supplementation Patient denies weight change ?? Hypothyroidism TSH remains elevated at 8.1-0-> 4.18, (level 8.83 this past September) Free T3/T4 1.3, 1.74 respectively Levothyroxine increased to 75 mg daily ?? FULL CODE Discussed with MD Greg Hines II, [facility] TECH 01/18/2019 Cardiology Staff Addendum Patient Name: Pretty Harmon Patient Admit Date: 01/07/2019 I interviewed and examined the patient during comprehensive bedside rounds. I concur with the summary of interval events, active hospital-focused problem list and plan of care outlined in Ms. Fountainsnote dated 01/18/2019. I personally reviewed the medications, laboratory results, treatment decisionsand updated the patient on all of these elements. Active Hospital Problems Diagnosis ??? Systolic HF (heart failure) ??? Chest pain ??? Hypertensive urgency ??? CKD (chronic kidney disease) stage 5, GFR less than 15 ml/min ??? Severe protein-calorie malnutrition ??? Renal artery stenosis ??? Abdominal aortic aneurysm (AAA) without rupture Resolved Hospital Problems No resolved problems to display. Scheduled Meds: ??? isosorbide dinitrate 10 mg Oral TID ??? carvedilol 12.5 mg Oral BID WC ??? polyethylene glycol (MIRALAX)oral powder 17 g Oral BID ??? senna 8.6 mg Oral Daily ??? docusate sodium 100 mg Oral BID ??? heparin (Porcine) 5,000 Units Subcutaneous 2 times per day ??? levothyroxine 75 mcg Oral Daily ??? aspirin 81 mg Oral Daily ??? atorvastatin 20 mg Oral QPM ??? gabapentin 200 mg Oral Nightly ??? sodium chloride 0.9 % (flush) 5 mL Intravenous BID ??? pantoprazole 20 mg Oral Daily ??? amLODIPine 10 mg Oral Daily Most Recent Vitals: 01/18/19 0848 BP: 150/61 Pulse: 60 Resp: Temp: SpO2: Labs Lab Comments: Lab Results Component Value Date WBC 7.5 01/18/2019 HGB 11.4 (L) 01/18/2019 HCT 33.5 (L) 01/18/2019 MCV 89.8 01/18/2019 PLATELET 258 01/18/2019 Lab Results Component Value Date CREATININE 3.65 (H) 01/18/2019 BUN 77 (H) 01/18/2019 NA 120 (L) 01/18/2019 K 3.3 (L) 01/18/2019 CL 77 (L) 01/18/2019 CO2 25 01/18/2019 Lab Results Component Value Date CK 160 01/08/2019 TROPONINT 0.05 (H) 01/08/2019 Intake/Output Summary (Last 24 hours) at 01/18/2019 1213 Last data filed at 01/18/2019 0600 Gross per 24 hour Intake 570 ml Output 1950 ml Net -1380 ml Patient Vitals for the past 168 hrs: Weight 01/18/19 0618 34.5 kg (76 lb 1.6 oz) 01/17/19 0416 36.8 kg (81 lb 2.1 oz) 01/16/19 0500 37.3 kg (82 lb 3.7 oz) 01/15/19 0541 36.2 kg (79 lb 12.9 oz) 01/13/19 0439 35.8 kg (78 lb 14.8 oz) 01/12/19 0453 35.1 kg (77 lb 6.1 oz) Evaluation/Plan: No complaints on rounds this a.m.. Heart rates running in the 50-60 range, blood pressure 122 150 systolic. Satting 98% on room air. Fluid balance -1380 cc. Lab work: Potassium 3.3 (repleted), sodium 120 (stable), creatinine 3.6 (downtrending). Renal artery duplex study (preliminary) patent right distal renal artery, bypass graft cannot be well visualized due to bowel gas. No significant stenosis on the left side. Because her creatinine bumped with initiation of lisinopril we are now holding that drug and it seems unlikely we will be able to use it. We will therefore begin trying to move towards therapy with Isordil and hydralazine for her cardiomyopathy. We will try to reschedule MRI for today. Otherwise her main problem is her hyponatremia. We will continue to fluid restrict and hold diuretics and follow herserum sodiums. Otherwise as per Ms. Mercedes. I am a credentialed acetylene burner at [facility] [place] and I am currently the attending of record for the patient's admission. I certify that this patient meets or has met the criteria for inpatient treatment for their acute condition meeting a minimum of two midnights. Thomas Terrazas MD Thomas Terrazas II, MD - 01/17/2019 12:13 PM EDT Images from the original note were not included. 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 / PA Responsible Attending: Thomas Terrazas II, MD Reason for continued hospitalization: Evaluation and management of systolic heart failure Newly identified cardiomyopathy, awaiting cardiac MRI Thursday01/17/19 CKD stage IV, creat 3.33, Nephrology is following her Right heart cath done Thursday01/14/19 Renal study planned Thursday01/17/19 Urinary retention, caballero placed 01/16/19, Urology consult called in Hyponatremia, fluid restriction of a liter Hypokalemia, replacing K Constipation, patient only has BM once a week, had small BM 01/15/19 Telemetry monitoring Active Problems: Active Hospital Problems Diagnosis ??? Systolic HF (heart failure) ??? Chest pain ??? Hypertensive urgency ??? CKD (chronic kidney disease) stage 5, GFR less than 15 ml/min ??? Severe protein-calorie malnutrition Weight loss of 15.8% x 26 days from 47.4 kg (08/29) to 39.9 kg (10/04) and presents with lean muscle loss at clavicles and subcutaneous fat loss at triceps consistent with severe protein calorie malnutrition. ??? Renal artery stenosis ??? Abdominal aortic aneurysm (AAA) without rupture Resolved Hospital Problems No resolved problems to display. Interval History: We are stopping hydralazine and starting lisinopril 5 mg PO daily today. We have stopped labetalol and started coreg 6.25 mg PO BID and have stopped clonidine as well. We are fluid restricting her to one liter and replacing her K to help replace her Na as well. Patient had another episode of urinary retention of 600 cc and is now having a caballero placed and Urology consult. She has one BM a week at home normally and had a small BM per report yesterday. Her Na is 117 and her K is 3.6 at this time. Nuclear stress test was negative for ischemia and she had a right heart cath on Thursday01/14/19. Patient is set to have a cardiac MRI on Thursday and renal study on the left as well. She is currently having nausea and vomiting and may have aspirated her soup at lunch. We are checking a CXR and KUB now. At this time she is 94% on 4 L NC. We are fluid restricting her to one liter per day. Review of Systems: Review of Systems Respiratory: Negative for shortness of breath. Cardiovascular: Negative for chest pain. Neurological: Negative for tremors (My tremor is better today). All other systems reviewed and are negative. Telemetry: HR 55-65 sinus bradycardia, sinus rhythm with no ectopy Meds: Scheduled Meds: ??? lisinopril 5 mg Oral Daily ??? carvedilol 6.25 mg Oral BID WC ??? polyethylene glycol (MIRALAX)oral powder 17 g Oral BID ??? senna 8.6 mg Oral Daily ??? docusate sodium 100 mg Oral BID ??? heparin (Porcine) 5,000 Units Subcutaneous 2 times per day ??? levothyroxine 75 mcg Oral Daily ??? aspirin 81 mg Oral Daily ??? atorvastatin 20 mg Oral QPM ??? gabapentin 200 mg Oral Nightly ??? sodium chloride 0.9 % (flush) 5 mL Intravenous BID ??? pantoprazole 20 mg Oral Daily ??? amLODIPine 10 mg Oral Daily Continuous Infusions: PRN Meds:bisacodyl, alum-mag hydroxide-simeth, sodium chloride 0.9 % (flush), lidocaine, nitroGLYcerin, acetaminophen Physical Exam: Vital Signs: Last value Range last 24 hrs Temperature Temp: 36.6 ??C (97.9 ??F) Temp: [36.4 ??C (97.5 ??F)-37.2 ??C (99 ??F)] Heart Rate Heart Rate: 60 Heart Rate: [57-69] Blood Pressure BP: 154/65 BP: (120-154)/(55-65) Respiratory Rate Resp: 15 Resp: [13-22] SpO2 SpO2: 98 % SpO2: [95 %-98 %] Intake/Output Summary (Last 24 hours) at 01/17/2019 1213 Last data filed at 01/17/2019 0600 Gross per 24 hour Intake 540 ml Output 535 ml Net 5 ml Patient Vitals for the past 168 hrs: Weight 01/17/19 0416 36.8 kg (81 lb 2.1 oz) 01/16/19 0500 37.3 kg (82 lb 3.7 oz) 01/15/19 0541 36.2 kg (79 lb 12.9 oz) 01/13/19 0439 35.8 kg (78 lb 14.8 oz) 01/12/19 0453 35.1 kg (77 lb 6.1 oz) 01/11/19 0344 36.5 kg (80 lb 7.5 oz) Physical Exam Constitutional: She is oriented to person, place, and time. She appears well- developed. No distress. HENT: Head: Normocephalic and atraumatic. Eyes: Right eye exhibits no discharge. Left eye exhibits no discharge. Neck: Normal range of motion. Cardiovascular: Normal rate and regular rhythm. Pulmonary/Chest: Effort normal. No respiratory distress. She has wheezes. She has rales. Abdominal: Soft. Bowel sounds are normal. She exhibits no distension. Musculoskeletal: Normal range of motion. She exhibits no edema. Neurological: She is alert and oriented to person, place, and time. Skin: Skin is warm and dry. She is not diaphoretic. Psychiatric: She has a normal mood and affect. Her behavior is normal. Lab Comments: Recent Labs 01/17/19 0354 01/16/19 0520 01/15/19 0439 WBC 8.3 11.2* 10.7* HGB 11.4* 11.0* 11.3* HCT 32.0* 30.7* 32.9* PLATELET 243 252 269 No results for input(s): INR in the last 168 hours. Recent Labs 01/17/19 0354 01/16/19200101/16/19 1306 NA 120* 118* 118* K 3.7 3.5 4.0 CL 76* 75* 74* CO2 27 27 27 BUN 69* 70* 64* CREATININE 3.86* 3.65* 3.57* No results for input(s): AST, ALT, ALKPHOS, BILITOT, BILIDIR in the last 168 hours. Recent Labs 01/17/19 0354 01/16/19200101/16/19 1306 01/16/19 0853 CALCIUM 9.2 9.0 9.3 9.1 MAGNESIUM 0.96 -- 0.88 0.83 No results for input(s): CK, TROPONINT in the last 168 hours. Pertinent Radiographic/Diagnostic Results: Renal artery duplex: 01/17/19 Pending Assessment: Pretty Harmon is a 68 y.o. female with a past medical history of AAA, hypertension, CKD stage IV-V, bilateral renal artery stenosis status post renal artery bypass August 2018, hypothyroid who presented to [facility] in the setting of acute dyspnea and abdominal pain, and underwent ED-ED transfer dueto OSH provider concern for AAA rupture. Seen by vascular surgery and aneurysmal rupture ruled out (see vascular consult note (01/07) . Ultimately she was admitted to cardiology due in the setting of ADHF exacerbation and hypertensive urgency. Trop (+) but flat at 0.05x3. She denies any chest pain. CT of the chest showing vascular congestion with pleural effusion (R>L). Initiated on IVP diuretics, followed by lasix drip which was up-titrated to 20 mg/hr in setting of low urine output. Echocardiogram revealed significantly reduced LV function as noted above. BP has been labile, requiring further antihypertensive agents. Unfortunately this has been difficult to control in the setting of her YING. Ne phrology consulted and following. Nuclear stress test was negative for ischemia, and work-up is ongoing for her now presumed nonischemic cardiomyopathy. Cardiac MRI likely as outpatient away from acutehospitalization. Minimal urine output overnight, will stop lisinopril dosing for today. Nephrology aware. Bilateral renal artery duplex ordered for today. SBP range 120-150s in the past 24 hours. Plan: Hypertensive Urgency Continue telemetry monitoring BP: (120-154)/(55-65) in the past 24 hours We stopped the labetalol and started coreg 6.25 mg PO BID 01/15/19 continue amlodipine 10 mg PO daily We stopped clonidine to 0.1 mg BID (had previously taken 0.1 mg BID at home PRN) We stopped hydralazine Stopped lisinopril today (minimal urine output overnight and Cr up to 3.8) Acute Systolic HF, EF 25% New CM, unclear if ischemic vs non-ischemic Monitor intakes and outputs, daily weights, 2 gm sodium diet Keep K greater than 4 mg/DL, MG greater than 1 mmol/L Echo revealing newly reduced LVEF to 20-25% with diffuse wall motion abnormalities as above Admit ProBNP >46958, repeat level the same Marceline to be approaching euvolemic status with improved symptom management Stopped torsemide dose to 20 mg daily Continue close monitoring of renal function, nephrology consulted NICM panel so far positive for elevated ferritin and B12 levels, as well as elevated Kamma and Lambda free light chains, though with normal ratio HF team consult appreciated Cardiac MRI as outpatient NSTEMI, type I vs type II cardiac enzymes remain flat Received 48 hours of heparin therapy, no additional chest pain Nuclear stress test negative for ischemia Continue ASA 81 mg daily (loaded in the ED) Atorvastatin 40 mg p.o. daily (increased from 20 mg p.o. daily) CKD IV-V Right sided YING s/p right renal artery bypass Followed by Dr. Kemp, creatinine 3.6 on admission from 2.9 last month Creatinine increased to 3.8 today No longer on diuretic Nephrology and vascular surgery consulted and following Renal duplex done today Acute hyponatremia initially though to be secondary to fluid overload, but worsening with diuresis Level 117 today Stopped IV lasix drip Fluid restrict to one liter Follow levels daily Underweight Body mass index is 15.84 kg/m??. Suspect severe protein calorie malnutrition however albumin is normal Nutrition consult placed Renal boost supplementation Patient denies weight change ?? Hypothyroidism TSH remains elevated at 8.1-0-> 4.18, (level 8.83 this past September) Free T3/T4 1.3, 1.74 respectively Levothyroxine increased to 75 mg daily ?? FULL CODE Discussed with Thomas Terrazas II, MD Gregchintan Mercedes, [facility] TECH 01/17/2019 Cardiology Staff Addendum Patient Name: Pretty Harmon Patient Admit Date: 01/07/2019 I interviewed and examined the patient during comprehensive bedside rounds. I concur with the summary of interval events, active hospital-focused problem list and plan of care outlined in Ms. Mercedes'snote dated 01/17/2019. I personally reviewed the medications, laboratory results, treatment decisionsand updated the patient on all of these elements. Active Hospital Problems Diagnosis ??? Systolic HF (heart failure) ??? Chest pain ??? Hypertensive urgency ??? CKD (chronic kidney disease) stage 5, GFR less than 15 ml/min ??? Severe protein-calorie malnutrition ??? Renal artery stenosis ??? Abdominal aortic aneurysm (AAA) without rupture Resolved Hospital Problems No resolved problems to display. Scheduled Meds: ??? carvedilol 6.25 mg Oral BID WC ??? polyethylene glycol (MIRALAX)oral powder 17 g Oral BID ??? senna 8.6 mg Oral Daily ??? docusate sodium 100 mg Oral BID ??? heparin (Porcine) 5,000 Units Subcutaneous 2 times per day ??? levothyroxine 75 mcg Oral Daily ??? aspirin 81 mg Oral Daily ??? atorvastatin 20 mg Oral QPM ??? gabapentin 200 mg Oral Nightly ??? sodium chloride 0.9 % (flush) 5 mL Intravenous BID ??? pantoprazole 20 mg Oral Daily ??? amLODIPine 10 mg Oral Daily Most Recent Vitals: 01/17/19 1152 BP: Pulse: Resp: Temp: 36.6 ??C (97.9 ??F) SpO2: Labs Lab Comments: Lab Results Component Value Date WBC 8.3 01/17/2019 HGB 11.4 (L) 01/17/2019 HCT 32.0 (L) 01/17/2019 MCV 87.9 01/17/2019 PLATELET 243 01/17/2019 Lab Results Component Value Date CREATININE 3.86 (H) 01/17/2019 BUN 69 (H) 01/17/2019 NA 120 (L) 01/17/2019 K 3.7 01/17/2019 CL 76 (L) 01/17/2019 CO2 27 01/17/2019 Lab Results Component Value Date CK 160 01/08/2019 TROPONINT 0.05 (H) 01/08/2019 Intake/Output Summary (Last 24 hours) at 01/17/2019 1243 Last data filed at 01/17/2019 0600 Gross per 24 hour Intake 540 ml Output 535 ml Net 5 ml Patient Vitals for the past 168 hrs: Weight 01/17/19 0416 36.8 kg (81 lb 2.1 oz) 01/16/19 0500 37.3 kg (82 lb 3.7 oz) 01/15/19 0541 36.2 kg (79 lb 12.9 oz) 01/13/19 0439 35.8 kg (78 lb 14.8 oz) 01/12/19 0453 35.1 kg (77 lb 6.1 oz) 01/11/19 0344 36.5 kg (80 lb 7.5 oz) Evaluation/Plan: No complaints this a.m. on rounds. She apparently had quite low urine output overnight. Her creatinine has increased from 3.3->3.8. Nephrology and urology have been consulted and there apparently is some concern that obstructive uropathy may be playing a role here. If this is true it is probably a long-term issue. A Caballero catheter was placed in order to decompress and possibly retrain her bladder. Heart rate 50 to 70 bpm, blood pressure 125-154 systolic. Satting 96% on room air. Fluid balance +155 over last 24 hours, weight 36.8 which is up 0.3 kg from admission. Lab work: Hemoglobin 11.4, sodium 120, potassium 3.7, creatinine 3.8, BUN 69. She is currently getting no diuretic but is on a fluid restriction and her sodium is improving and she notes that the jitteriness/twitchiness she has been experiencing over the last several days has also resolved. Her renal artery duplex studies were performed this morning, the results are pending. Her cardiac MRI was postponed until tomorrow given the lack of clarity around her renal function. Fluid balance over the last 24 hours. Continue beta se, ACEI, ASA, clopidogrel and statin. Otherwise as per Ms. Mercedes. I am a credentialed acetylene burner at [facility] [place] and I am currently the attending of record for the patient's admission. I certify that this patient meets or has met the criteria for inpatient treatment for their acute condition meeting a minimum of two midnights. Thomas Terrazas MD Bimal Negron MD - 01/17/2019 10:01 AM EDT HYPERTENSION/ NEPHROLOGY PROGRESS NOTE PATIENT: Pretty Harmon : 1950 REASON FOR CONSULTATION: Consulted by cardiology for acute kidney injury on chronic kidney disease, hypertension management. HPI: 68 y.o. female with PMHx significant for stage IV CKD with a creatinine running in the 2.75 range, due to long-standing uncontrolled hypertension and renal ischemia due to renal artery stenosis, rightrenal angioplasty on August 2018, with normal flow in the left kidney, with uncontrolled blood pressuredifficult to control due to hypotension as well as significant elevation of blood pressure at other times, history of abdominal aortic aneurysm, history of congestive heart failure with flash pulmonaryedema, came to the hospital on 01/24/2019 because of significant shortness of breath. Nephrology was consulted for kush on ckd and management of hypertension. Subjective: Patient was seen and examined today. Still hyponatremic Not on supplimental oxygen Her creatinine is up trending. ROS: 4 point review of sytem was done, everything was negative except for what was mentioned above. MEDICATIONS: ??? lisinopril 5 mg Oral Daily ??? carvedilol 6.25 mg Oral BID WC ??? polyethylene glycol (MIRALAX)oral powder 17 g Oral BID ??? senna 8.6 mg Oral Daily ??? docusate sodium 100 mg Oral BID ??? heparin (Porcine) 5,000 Units Subcutaneous 2 times per day ??? levothyroxine 75 mcg Oral Daily ??? aspirin 81 mg Oral Daily ??? atorvastatin 20 mg Oral QPM ??? gabapentin 200 mg Oral Nightly ??? sodium chloride 0.9 % (flush) 5 mL Intravenous BID ??? pantoprazole 20 mg Oral Daily ??? amLODIPine 10 mg Oral Daily PHYSICAL EXAM: Last value Range last 24 hrs Temperature Temp: 37.1 ??C (98.8 ??F) Temp: [36.4 ??C (97.5 ??F)-37.2 ??C (99 ??F)] Heart Rate Heart Rate: 57 Heart Rate: [57-72] Blood Pressure BP: 138/56 BP: (120-154)/(55-66) Respiratory Rate Resp: 15 Resp: [10-22] SpO2 SpO2: 96 % SpO2: [84 %-97 %] Patient is awake alert did not seem to be in acute distress no jaundice or mucosa moist Neck- supple trachea central Chest- bilateral air entry present clear. CVS-S1-S2 present Abdomen-nontender nondistended, bowel sounds present., Abdominal bruit present. Extremities-peripheral pulses present, no significant edema Neuro-patient is awake alert, moving all 4 limbs, motor examination is grossly normal. STUDIES: Labs: CBC: Recent Labs 01/17/19 0354 01/16/19 0520 01/15/19 0439 WBC 8.3 11.2* 10.7* HGB 11.4* 11.0* 11.3* PLATELET 243 252 269 Chemistry: Recent Labs 01/17/19 0354 01/16/19200101/16/19 1306 01/08/19 0004 01/07/19 2159 01/04/19 1252 NA 120* 118* 118* < > 131* 131* 133* K 3.7 3.5 4.0 < > 4.2 Not Perf 3.6 CL 76* 75* 74* < > 93* 92* 95* CO2 27 27 27 < > 20* 18* 21* BUN 69* 70* 64* < > 59* 61* 44* CREATININE 3.86* 3.65* 3.57* < > 3.42* 3.68* 3.11* GLUCOSE -- -- -- -- 121 121 114 < > = values in this interval not displayed. Recent Labs 01/17/19 0354 01/16/19200101/16/19 1306 01/16/19 0853 01/04/19 1252 11/09/18 1226 09/03/18 0035 CALCIUM 9.2 9.0 9.3 9.1 < > 9.7 < > 9.5 < > 8.2* MAGNESIUM 0.96 -- 0.88 0.83 < > -- -- -- < > 0.95 PHOS -- -- -- -- -- 4.0 -- 4.2 -- 4.4 < > = values in this interval not displayed. LFT's: Recent Labs 01/07/19 2159 01/04/19 1252 10/03/18 0329 06/14/18 1022 BILITOT 0.7 -- <0.2* 0.4 BILIDIR Not Perf -- 0.1 -- ALBUMIN 4.1 3.8 3.4 3.9 ALKPHOS 118* -- 72 57 ALT 33* -- 13 11 AST Not Perf -- IMPRESSION/ RECOMMENDATIONS: 68 y.o. female with PMHx significant for stage IV CKD with a creatinine running in the 2.75 range, due to long-standing uncontrolled hypertension and renal ischemia due to renal artery stenosis, right renal angioplasty on August 2018, with normal flow in the left kidney, with uncontrolled blood pressure difficult to control due to hypotension as well as significant elevation of blood pressure at other times, admitted with congestive heart failure with reduced ejection fraction with an ejection fractionof 20 to 25% this time. Nephro consulted for acute kidney injury on chronic kidney disease . #Acute kidney injury on chronic kidney disease stage IV-most probably secondary to cardiorenal syndrome. Patient has chronic kidney disease secondary to hypertensive nephrosclerosis/ischemia due to renal artery stenosis. Her creatinine is up trending with contraction alkalosis due to diuresis Hypertension-patient is currently on amlodipine 10 milligrams p.o. daily, Hydralazine 25 TID, labetalol 400 mg twice daily. CHF with reduced EF- stress test is negative for reversible ischemia. Euvolemic off diuretics. [id number] to congestive heart failure. Potassium today is 3.7 Bone mineral metabolic syndrome-calcium normal Anemia- s/p iron infusion on on 01/07/19 Recommendation: Agree with holding ABBY due to uptrending creatinine Please check bmp tomorrow Continue holding diuretics. Thank you for the consult will follow the patient with you Seen and discussed with Dr.Kaneko Bimal Negron MD 01/17/2019 Renal Attending: The patient was examined together with the renal fellow and her clinical and laboratory data were reviewed, I agree with the above note which accurately reflects our findings and assessment Associated attestation - Brady Gallo MD - 01/17/2019 10:58 PM EDT Renal Staff Addendum Patient seen and examined with Dr. Negron. I agree with the above note which represents our joint assessment and plan with the following additions: Cr up, hyponatremia persists. Lungs are clear and there is no peripheral edema. Would hold diureticstoday. Mainor Doyle MD - 01/16/2019 9:58 PM EDT Renal Follow Up Note: 68 y.o. female with PMHx significant for stage IV CKD with a creatinine running in the 2.75 range, due to long-standing uncontrolled hypertension and renal ischemia due to renal artery stenosis, right renal angioplasty on August 2018, with normal flow in the left kidney, with uncontrolled blood pressure difficult to control due to hypotension as well as significant elevation of blood pressure at other times, history of abdominal aortic aneurysm, history of congestive heart failure with flash pulmonary edema, came to the hospital on 01/24/2019 because of significant shortness of breath. Nephrology was consulted for kush on ckd and management of hypertension. S/ the patient is feeling well with no complaint offered, not feeling thirsty, no headaches, no dizziness, no dysuria reported but was straight catheterized for 600ml Physical exam: Patient Vitals for the past 8 hrs: BP Temp Temp src Pulse Resp SpO2 01/16/19 1559 154/61 -- -- 63 13 96 % 01/16/19 1554 -- 36.4 ??C (97.5 ??F) Oral -- -- -- input 1890/ output 2190 cachectic Lungs clears Heart regular rhythm, no rub, no murmur Abdomen soft Limbs no edema Labs: Results for PRETTY HARMON ( ) as of 01/16/2019 21:58 Ref. Range 01/16/2019 05:20 01/16/2019 08:53 01/16/2019 13:06 01/16/2019 14:22 01/16/2019 20:02 WBC Latest Ref Range: 4.0 - 9.5 x10(3)/mcL 11.2 (H) RBC Latest Ref Range: 4.00 - 5.21 x10(6)/mcL 3.61 (L) Hemoglobin Latest Ref Range: 11.7 - 15.5 gm/dL 11.0 (L) Hematocrit Latest Ref Range: 35.7 - 45.8 % 30.7 (L) MCV Latest Ref Range: 82.6 - 94.4 fL 85.0 MCH Latest Ref Range: 27.1 - 32.0 pg 30.5 MCHC Latest Ref Range: 31.7 - 35.0 gm/dL 35.8 (H) RDWSD Latest Ref Range: 37.0 - 46.0 fL 46.1 (H) RDWCV Latest Ref Range: 11.5 - 14.1 % 15.5 (H) Platelets Latest Ref Range: 145 - 357 x10(3)/mcL 252 MPV Latest Ref Range: 7.6 - 12.9 fL 11.5 nRBC % Auto Latest Units: % 0.0 nRBC Abs Auto Latest Ref Range: 0.000 - 0.000 x10(3)/mcL 0.000 Neutr Abs (ANC) Latest Ref Range: 1.70 - 6.10 x10(3)/mcL 9.47 (H) Neutrophils % Latest Units: % 84.4 Immature Gran % Latest Units: % 0.30 Lymphocytes % Latest Units: % 3.4 Monocytes % Latest Units: % 10.4 Eosinophils % Latest Units: % 1.1 Basophils % Latest Units: % 0.4 Blanca Gran Abs Latest Ref Range: 0.00 - 0.04 x10(3)/mcL 0.03 Lymphocytes Abs Latest Ref Range: 0.9 - 3.2 x10(3)/mcL 0.4 (L) Monocyte Abs Latest Ref Range: 0.3 - 0.9 x10(3)/mcL 1.2 (H) Eosinophils Abs Latest Ref Range: 0.0 - 0.4 x10(3)/mcL 0.1 Basophils Abs Latest Ref Range: 0.0 - 0.1 x10(3)/mcL 0.0 Sodium Latest Ref Range: 135 - 145 mmol/L 116 (CRIT) 117 (CRIT) 118 (CRIT) 118 (CRIT) Potassium Latest Ref Range: 3.5 - 5.0 mmol/L 3.4 (L) 3.6 4.0 3.5 Chloride Latest Ref Range: 98 - 107 mmol/L 72 (L) 72 (L) 74 (L) 75 (L) CO2 Latest Ref Range: 22 - 31 mmol/L 28 27 27 27 Anion Gap Latest Ref Range: 5 - 15 mmol/L 16 (H) 18 (H) 17 (H) 16 (H) BUN Latest Ref Range: 8 - 18 mg/dL 63 (H) 64 (H) 64 (H) 70 (H) Creatinine Latest Ref Range: 0.70 - 1.20 mg/dL 3.33 (H) 3.53 (H) 3.57 (H) 3.65 (H) eGFR Latest Ref Range: >=60 mL/min/1.73 m?? 13 (L) 12 (L) 12 (L) 12 (L) eGFR Latest Ref Range: >=60 mL/min/1.73 m?? 15 (L) 14 (L) 14 (L) 14 (L) Glucose Fasting Latest Ref Range: 65 - 99 mg/dL 133 (H) 119 (H) 124 (H) 158 (H) Calcium Latest Ref Range: 8.5 - 10.5 mg/dL 9.4 9.1 9.3 9.0 Magnesium Latest Ref Range: 0.69 - 1.07 mmol/L 0.83 0.88 XR ABDOMEN 1 VIEW Unknown Rpt XR CHEST PA AND LATERAL Unknown Rpt A/P: The patient is in acute on chronic renal failure with waxing and waning creatinine which is togetherwith large bladder residual a sign of obstructive uropathy Agree with Caballero and urology consult The patient has asymptomatic Hyponatremia developing over several days in the setting of diuresis ofCHF and non ischemic cardiopathy, not feeling thirsty, recommend to treat with water restriction andhold diuretics as target weight might have been achieved, urine lytes were ordered Right sided YING angioplasty in August, still with elevated BP, recommend to repeat renal Duplex for both sides, recommend to start on Lisinopril., she was previously reported to have excessive creatinine elevation but that was before R renal artery intervention Discussed with cardiology team Thomas Terrazas II, MD - 01/16/2019 12:45 PM EDT Images from the original note were not included. 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 / PA Responsible Attending: Thomas Terrazas II, MD Reason for continued hospitalization: Evaluation and management of systolic heart failure Newly identified cardiomyopathy, awaiting cardiac MRI Thursday01/17/19 CKD stage IV, creat 3.33, Nephrology is following her Right heart cath done Thursday01/14/19 Renal study planned Thursday01/17/19 Urinary retention, caballero placed 01/16/19, Urology consult called in Hyponatremia, fluid restriction of a liter Hypokalemia, replacing K Constipation, patient only has BM once a week, had small BM 01/15/19 Telemetry monitoring Active Problems: Active Hospital Problems Diagnosis ??? Systolic HF (heart failure) ??? Chest pain ??? Hypertensive urgency ??? CKD (chronic kidney disease) stage 5, GFR less than 15 ml/min ??? Severe protein-calorie malnutrition Weight loss of 15.8% x 26 days from 47.4 kg (08/29) to 39.9 kg (10/04) and presents with lean muscle loss at clavicles and subcutaneous fat loss at triceps consistent with severe protein calorie malnutrition. ??? Renal artery stenosis ??? Abdominal aortic aneurysm (AAA) without rupture Resolved Hospital Problems No resolved problems to display. Interval History: We are stopping hydralazine and starting lisinopril 5 mg PO daily today. We have stopped labetalol and started coreg 6.25 mg PO BID and have stopped clonidine as well. We are fluid restricting her to one liter and replacing her K to help replace her Na as well. Patient had another episode of urinary retention of 600 cc and is now having a caballero placed and Urology consult. She has one BM a week at home normally and had a small BM per report yesterday. Her Na is 117 and her K is 3.6 at this time. Nuclear stress test was negative for ischemia and she had a right heart cath on Thursday01/14/19. Patient is set to have a cardiac MRI on Thursday and renal study on the left as well. She is currently having nausea and vomiting and may have aspirated her soup at lunch. We are checking a CXR and KUB now. At this time she is 94% on 4 L NC. We are fluid restricting her to one liter per day. Review of Systems: Review of Systems Constitutional: Negative. HENT: Negative. Eyes: Negative. Respiratory: Negative. Negative for shortness of breath (resolved). Cardiovascular: Negative. Negative for chest pain, palpitations and leg swelling. Gastrointestinal: Negative. Negative for abdominal distention and abdominal pain. Endocrine: Negative. Genitourinary: Negative. Negative for difficulty urinating. Musculoskeletal: Negative. Skin: Negative. Allergic/Immunologic: Negative. Neurological: Negative. Negative for dizziness, weakness and light-headedness. Hematological: Negative. Psychiatric/Behavioral: Negative. All other systems reviewed and are negative. Telemetry: Heart rate 60-70s, sinus rhythm Meds: Scheduled Meds: ??? potassium chloride 40 mEq Oral Once ??? magnesium sulfate 1 g Intravenous Once ??? lisinopril 5 mg Oral Daily ??? carvedilol 6.25 mg Oral BID WC ??? polyethylene glycol (MIRALAX)oral powder 17 g Oral BID ??? senna 8.6 mg Oral Daily ??? docusate sodium 100 mg Oral BID ??? heparin (Porcine) 5,000 Units Subcutaneous 2 times per day ??? levothyroxine 75 mcg Oral Daily ??? aspirin 81 mg Oral Daily ??? atorvastatin 20 mg Oral QPM ??? gabapentin 200 mg Oral Nightly ??? sodium chloride 0.9 % (flush) 5 mL Intravenous BID ??? pantoprazole 20 mg Oral Daily ??? amLODIPine 10 mg Oral Daily Continuous Infusions: PRN Meds:bisacodyl, alum-mag hydroxide-simeth, sodium chloride 0.9 % (flush), lidocaine, nitroGLYcerin, acetaminophen Physical Exam: Vital Signs: Last value Range last 24 hrs Temperature Temp: 37.1 ??C (98.8 ??F) Temp: [36.5 ??C (97.7 ??F)-37.3 ??C (99.1 ??F)] Heart Rate Heart Rate: 69 Heart Rate: [62-77] Blood Pressure BP: 137/66 BP: (131-154)/(59-72) Respiratory Rate Resp: 13 Resp: [10-18] SpO2 SpO2: 95 % SpO2: [84 %-99 %] Intake/Output Summary (Last 24 hours) at 01/16/2019 1303 Last data filed at 01/16/2019 0859 Gross per 24 hour Intake 1390 ml Output 1490 ml Net -100 ml Patient Vitals for the past 168 hrs: Weight 01/16/19 0500 37.3 kg (82 lb 3.7 oz) 01/15/19 0541 36.2 kg (79 lb 12.9 oz) 01/13/19 0439 35.8 kg (78 lb 14.8 oz) 01/12/19 0453 35.1 kg (77 lb 6.1 oz) 01/11/19 0344 36.5 kg (80 lb 7.5 oz) 01/10/19 0555 37 kg (81 lb 9.1 oz) Physical Exam Constitutional: No distress. Underweight, Body mass index is 16.02 kg/m??. Cardiovascular: Normal rate, regular rhythm and normal heart sounds. Pulmonary/Chest: She has no rales. Abdominal: Soft. Hyperactive bowel sounds Genitourinary: Genitourinary Comments: Patient had 600 cc of urine retained last night and had a straight cath. Again she has 600 cc retained today at 1300 and a caballero was placed Musculoskeletal: Normal range of motion. She exhibits no edema. Neurological: She is alert. Skin: Skin is warm and dry. She is not diaphoretic. Psychiatric: She has a normal mood and affect. Nursing note and vitals reviewed. patient is very slender and very lipscomb. Lab Comments: Recent Labs 01/16/19 0520 01/15/19 0439 01/14/19 0342 WBC 11.2* 10.7* 12.8* HGB 11.0* 11.3* 11.8 HCT 30.7* 32.9* 33.4* PLATELET 252 269 285 No results for input(s): INR in the last 168 hours. Recent Labs 01/16/19 0853 01/16/19 0520 01/15/19 0439 NA 117* 116* 123* K 3.6 3.4* 3.4* CL 72* 72* 73* CO2 27 28 32* BUN 64* 63* 70* CREATININE 3.53* 3.33* 3.83* No results for input(s): AST, ALT, ALKPHOS, BILITOT, BILIDIR in the last 168 hours. Recent Labs 01/16/19 0853 01/16/19 0520 01/15/19 0439 01/12/19 0544 01/10/19 1810 CALCIUM 9.1 9.4 9.4 < > 9.7 < > -- MAGNESIUM 0.83 -- -- -- 0.89 -- 0.75 < > = values in this interval not displayed. No results for input(s): CK, TROPONINT in the last 168 hours. Pertinent Radiographic/Diagnostic Results: I have independently visualized the following studies: ECG 01/12/2019: sinus rhythm with LVH with repolarization abnormalities TTE 01/08/2019 SUMMARY: ?? 1. The left ventricular chamber [...] See remainder of report for additional findings. Nuclear stress test 01/11/2019: INCIDENTAL CT FINDINGS: Bilateral pleural effusions, right greater than left are present. There is coronary artery and aortic calcification. An unchanged abdominal aortic aneurysm can be seen. IMPRESSION 1. No ischemia or scar. 2. Left ventricular function is mildly reduced with LVEF 47%. Wall motion abnormalities as above. Assessment: Pretty Harmon is a 68 y.o. female with a past medical history of AAA, hypertension, CKD stage IV-V, bilateral renal artery stenosis status post renal artery bypass August 2018, hypothyroid who presented to [facility] in the setting of acute dyspnea and abdominal pain, and underwent ED-ED transfer dueto OSH provider concern for AAA rupture. Seen by vascular surgery and aneurysmal rupture ruled out (see vascular consult note (01/07) . Ultimately she was admitted to cardiology due in the setting of ADHF exacerbation and hypertensive urgency. Trop (+) but flat at 0.05x3. She denies any chest pain. CT of the chest showing vascular congestion with pleural effusion (R>L). Initiated on IVP diuretics, followed by lasix drip which was up-titrated to 20 mg/hr in setting of low urine output. Echocardiogram revealed significantly reduced LV function as noted above. BP has been labile, requiring further antihypertensive agents. Unfortunately this has been difficult to control in the setting of her YING. Ne phrology consulted and following. Nuclear stress test was negative for ischemia, and work-up is ongoing for her now presumed nonischemic cardiomyopathy. Cardiac MRI planned Thursday along with renal study. Titrating medications at this time. Urology consult called in for urinary retention today. Stable. Plan: Hypertensive Urgency Continue telemetry monitoring BP: (131-154)/(59-72) - trends over the last 24 hours We stopped the labetalol and started coreg 6.25 mg PO BID 01/15/19 continue amlodipine 10 mg PO daily We stopped clonidine to 0.1 mg BID (had previously taken 0.1 mg BID at home PRN) We stopped hydralazine and started lisinopril 5 mg PO daily Holding diuretics now?? Acute Systolic HF New CM, unclear if ischemic vs non-ischemic Monitor intakes and outputs, daily weights, 2 gm sodium diet Keep K greater than 4 mg/DL, MG greater than 1 mmol/L Echo revealing newly reduced LVEF to 20-25% with diffuse wall motion abnormalities as above Admit ProBNP >45898, repeat level the same Marceline to be approaching euvolemia with improved symptom management Responded well to oral diuretic yesterday We stopped Torsemide dose to 20 mg daily Continue close monitoring of renal function, nephrology consulted NICM panel so far positive for elevated ferritin and B12 levels, as well as elevated Kamma and Lambda free light chains, though with normal ratio HF team consult appreciated Cardiac MRI on Thursday s/p right heart cath NSTEMI, type I vs type II cardiac enzymes remain flat Received 48 hours of heparin therapy, no additional chest pain Continue ASA 81 mg daily (loaded in the ED) Continued on labetalol, uptitrated Atorvastatin 40 mg p.o. daily (increased from 20 mg p.o. daily) Nuclear stress test negative for ischemia ?? CKD IV-V Right sided YING s/p right renal artery bypass Followed by Dr. Kemp, creatinine 3.6 on admission from 2.9 last month Creatinine bumped overnight from 3-->3.46 Transition to oral diuretic Avoid nephrotoxic agents Monitor kidney functions Nephrology and vascular surgery consulted and following renal duplex as well as repeat AAA duplex to be arranged outpatient per vascular Acute hyponatremia initially though to be secondary to fluid overload, but worsening with diuresis Level 117 today Stopped IV lasix drip Fluid restrict to one liter Follow levels daily Underweight Body mass index is 16.06 kg/m??. Suspect severe protein calorie malnutrition however albumin is normal Nutrition consult placed Renal boost supplementation Patient denies weight change ?? Hypothyroidism TSH remains elevated at 8.1-0-> 4.18, (level 8.83 this past September) Free T3/T4 1.3, 1.74 respectively Levothyroxine increased to 75 mg daily ?? FULL CODE Patient seen and discussed with Dr. Terrazas. REAGAN Barone 01/16/2019 Pager [phone] Cardiology Staff Addendum Patient Name: Pretty Harmon Patient Admit Date: 01/07/2019 I interviewed and examined the patient during comprehensive bedside rounds. I concur with the summary of interval events, active hospital-focused problem list and plan of care outlined in Ms. Lechuga's note dated 01/16/2019. I personally reviewed the medications, laboratory results, treatment decisions and updated the patient on all of these elements. Active Hospital Problems Diagnosis ??? Systolic HF (heart failure) ??? Chest pain ??? Hypertensive urgency ??? CKD (chronic kidney disease) stage 5, GFR less than 15 ml/min ??? Severe protein-calorie malnutrition ??? Renal artery stenosis ??? Abdominal aortic aneurysm (AAA) without rupture Resolved Hospital Problems No resolved problems to display. Scheduled Meds: ??? potassium chloride 40 mEq Oral Once ??? magnesium sulfate 1 g Intravenous Once ??? lisinopril 5 mg Oral Daily ??? carvedilol 6.25 mg Oral BID WC ??? polyethylene glycol (MIRALAX)oral powder 17 g Oral BID ??? senna 8.6 mg Oral Daily ??? docusate sodium 100 mg Oral BID ??? heparin (Porcine) 5,000 Units Subcutaneous 2 times per day ??? levothyroxine 75 mcg Oral Daily ??? aspirin 81 mg Oral Daily ??? atorvastatin 20 mg Oral QPM ??? gabapentin 200 mg Oral Nightly ??? sodium chloride 0.9 % (flush) 5 mL Intravenous BID ??? pantoprazole 20 mg Oral Daily ??? amLODIPine 10 mg Oral Daily Most Recent Vitals: 01/16/19 1356 BP: Pulse: 66 Resp: 22 Temp: SpO2: 97% Labs Lab Comments: Lab Results Component Value Date WBC 11.2 (H) 01/16/2019 HGB 11.0 (L) 01/16/2019 HCT 30.7 (L) 01/16/2019 MCV 85.0 01/16/2019 PLATELET 252 01/16/2019 Lab Results Component Value Date CREATININE 3.57 (H) 01/16/2019 BUN 64 (H) 01/16/2019 NA 118 (CRIT) 01/16/2019 K 4.0 01/16/2019 CL 74 (L) 01/16/2019 CO2 27 01/16/2019 Lab Results Component Value Date CK 160 01/08/2019 TROPONINT 0.05 (H) 01/08/2019 Intake/Output Summary (Last 24 hours) at 01/16/2019 1524 Last data filed at 01/16/2019 1324 Gross per 24 hour Intake 690 ml Output 2015 ml Net -1325 ml Patient Vitals for the past 168 hrs: Weight 01/16/19 0500 37.3 kg (82 lb 3.7 oz) 01/15/19 0541 36.2 kg (79 lb 12.9 oz) 01/13/19 0439 35.8 kg (78 lb 14.8 oz) 01/12/19 0453 35.1 kg (77 lb 6.1 oz) 01/11/19 0344 36.5 kg (80 lb 7.5 oz) 01/10/19 0555 37 kg (81 lb 9.1 oz) Evaluation/Plan: No complaints on rounds this a.m. Heart rate 77, blood pressure 145/65. Satting 96%on room air. With holding her torsemide yesterday fluid balance -300 cc over the last 24 hours, weight 37.3 which is up a little over a kilogram from yesterday. Lab work: Hemoglobin 11, potassium 3.4, creatinine 3.57 (down from 3.83 yesterday), serum sodium 116 (down from 123 yesterday). The change inher serum sodium is certainly concerning. As yet she does not have any mental status changes and so we will hold off on hypertonic saline. At the advice of nephrology we will fluid restrict and switch her to lisinopril (from hydralazine). At lunchtime she apparently vomited her soup and may have aspirated. She is now satting 94% on 4 L nasal prong. Heart failure does not seem to be a prominent concern at present, however hypertonic saline might be expected to make her heart failure worse. We will continue to watch her closely and beginmore aggressive maneuvers to correct her serum sodium as necessary. Otherwise as per Ms. Lechuga. I am a credentialed acetylene burner at [facility] and I am currently the attending of record for the patient's admission. I certify that this patient meets or has met the criteria for inpatient treatment for their acute condition meeting a minimum of two midnights. Thomas Terrazas MD Thomas Terrazas II, MD - 01/15/2019 3:03 PM EDT Images from the original note were not included. 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 Systolic HF (heart failure) ??? Chest pain ??? Hypertensive urgency ??? CKD (chronic kidney disease) stage 5, GFR less than 15 ml/min ??? Severe protein-calorie malnutrition Weight loss of 15.8% x 26 days from 47.4 kg (08/29) to 39.9 kg (10/04) and presents with lean muscle loss at clavicles and subcutaneous fat loss at triceps consistent with severe protein calorie malnutrition. ??? Renal artery stenosis ??? Abdominal aortic aneurysm (AAA) without rupture Resolved Hospital Problems No resolved problems to display. Interval History: We are decreased the torsemide to 20 mg PO daily and the clonidine to 0.1 mg PO BID yesterday. Nuclear stress test was negative for ischemia. We have ordered a right heart cath for today. She felt dizzy walking to the bathroom. Patient is now NPO for cath. Review of Systems: Review of Systems Constitutional: Negative. HENT: Negative. Eyes: Negative. Respiratory: Negative. Negative for shortness of breath (resolved). Cardiovascular: Negative. Negative for chest pain, palpitations and leg swelling. Gastrointestinal: Negative. Negative for abdominal distention and abdominal pain. Endocrine: Negative. Genitourinary: Negative. Negative for difficulty urinating. Musculoskeletal: Negative. Skin: Negative. Allergic/Immunologic: Negative. Neurological: Negative. Negative for dizziness, weakness and light-headedness. Hematological: Negative. Psychiatric/Behavioral: Negative. All other systems reviewed and are negative. Telemetry: Heart rate 60-70s, sinus rhythm Meds: Scheduled Meds: ??? carvedilol 6.25 mg Oral BID WC ??? hydrALAZINE 25 mg Oral TID ??? docusate sodium 100 mg Oral BID ??? heparin (Porcine) 5,000 Units Subcutaneous 2 times per day ??? levothyroxine 75 mcg Oral Daily ??? aspirin 81 mg Oral Daily ??? atorvastatin 20 mg Oral QPM ??? gabapentin 200 mg Oral Nightly ??? sodium chloride 0.9 % (flush) 5 mL Intravenous BID ??? pantoprazole 20 mg Oral Daily ??? amLODIPine 10 mg Oral Daily Continuous Infusions: PRN Meds:bisacodyl, alum-mag hydroxide-simeth, sodium chloride 0.9 % (flush), lidocaine, nitroGLYcerin, acetaminophen Physical Exam: Vital Signs: Last value Range last 24 hrs Temperature Temp: 37.1 ??C (98.8 ??F) Temp: [36.8 ??C (98.2 ??F)-37.5 ??C (99.5 ??F)] Heart Rate Heart Rate: 62 Heart Rate: [60-70] Blood Pressure BP: 140/72 BP: (128-150)/(56-72) Respiratory Rate Resp: 16 Resp: [16-18] SpO2 SpO2: 98 % SpO2: [96 %-98 %] Intake/Output Summary (Last 24 hours) at 01/15/2019 1535 Last data filed at 01/15/2019 1000 Gross per 24 hour Intake 1420 ml Output 1300 ml Net 120 ml Patient Vitals for the past 168 hrs: Weight 01/15/19 0541 36.2 kg (79 lb 12.9 oz) 01/13/19 0439 35.8 kg (78 lb 14.8 oz) 01/12/19 0453 35.1 kg (77 lb 6.1 oz) 01/11/19 0344 36.5 kg (80 lb 7.5 oz) 01/10/19 0555 37 kg (81 lb 9.1 oz) 01/09/19 0500 37.8 kg (83 lb 5.3 oz) Physical Exam Constitutional: No distress. Underweight, Body mass index is 16.02 kg/m??. Cardiovascular: Normal rate, regular rhythm and normal heart sounds. Pulmonary/Chest: She has no rales. Abdominal: Soft. Musculoskeletal: Normal range of motion. She exhibits no edema. Neurological: She is alert. Skin: Skin is warm and dry. She is not diaphoretic. Psychiatric: She has a normal mood and affect. Nursing note and vitals reviewed. patient is very slender and very lipscomb. Lab Comments: Recent Labs 01/15/19 04301/14/19 0342 01/13/19 0456 WBC 10.7* 12.8* 12.2* HGB 11.3* 11.8 11.8 HCT 32.9* 33.4* 34.2* PLATELET 269 285 299 No results for input(s): INR in the last 168 hours. Recent Labs 01/15/19 0439 01/14/19 0342 01/13/19 0456 NA 123* 126* 125* K 3.4* 3.7 4.1 CL 73* 75* 79* CO2 32* 32* 30 BUN 70* 69* 64* CREATININE 3.83* 3.97* 3.48* No results for input(s): AST, ALT, ALKPHOS, BILITOT, BILIDIR in the last 168 hours. Recent Labs 01/15/19 0439 01/14/19 0342 01/13/19 0456 01/12/19 0544 01/10/19 1810 01/09/19 1906 CALCIUM 9.4 9.8 9.7 9.7 < > -- < > -- MAGNESIUM -- -- -- 0.89 -- 0.75 -- 0.83 < > = values in this interval not displayed. No results for input(s): CK, TROPONINT in the last 168 hours. Pertinent Radiographic/Diagnostic Results: I have independently visualized the following studies: ECG 01/12/2019: sinus rhythm with LVH with repolarization abnormalities TTE 01/08/2019 SUMMARY: ?? 1. The left ventricular chamber [...] See remainder of report for additional findings. Nuclear stress test 01/11/2019: INCIDENTAL CT FINDINGS: Bilateral pleural effusions, right greater than left are present. There is coronary artery and aortic calcification. An unchanged abdominal aortic aneurysm can be seen. IMPRESSION 1. No ischemia or scar. 2. Left ventricular function is mildly reduced with LVEF 47%. Wall motion abnormalities as above. Assessment: Pretty Harmon is a 68 y.o. female with a past medical history of AAA, hypertension, CKD stage IV-V, bilateral renal artery stenosis status post renal artery bypass August 2018, hypothyroid who presented to [facility] in the setting of acute dyspnea and abdominal pain, and underwent ED-ED transfer dueto OSH provider concern for AAA rupture. Seen by vascular surgery and aneurysmal rupture ruled out (see vascular consult note (01/07) . Ultimately she was admitted to cardiology due in the setting of ADHF exacerbation and hypertensive urgency. Trop (+) but flat at 0.05x3. She denies any chest pain. CT of the chest showing vascular congestion with pleural effusion (R>L). Initiated on IVP diuretics, followed by lasix drip which was up-titrated to 20 mg/hr in setting of low urine output. Echocardiogram revealed significantly reduced LV function as noted above. BP has been labile, requiring further antihypertensive agents. Unfortunately this has been difficult to control in the setting of her YING. Ne phrology consulted and following. Nuclear stress test was negative for ischemia, and work-up is ongoing for her now presumed nonischemic cardiomyopathy. Cardiac MRI planned Thursday along with renal study. Titrating medications at this time. Stable. Plan: Hypertensive Urgency - BP: (128-150)/(56-72) - trends over the last 24 hours - stop labetalol and start coreg 6.25 mg PO BID - continue amlodipine 10 mg PO daily - stop clonidine to 0.1 mg BID (had previously taken 0.1 mg BID at home PRN) - Transitioned to oral diuretic - currently her SBP is in the 140s ?? Acute Systolic HF New CM, unclear if ischemic vs non-ischemic - Monitor intakes and outputs, daily weights, 2 gm sodium diet - Keep K greater than 4 mg/DL, MG greater than 1 mmol/L - Echo revealing newly reduced LVEF to 20-25% with diffuse wall motion abnormalities as above - Admit ProBNP >43509, repeat level the same - Marceline to be approaching euvolemia with improved symptom management - Responded well to oral diuretic yesterday -Decreased Torsemide dose to 20 mg daily - Close monitoring of renal function, nephrology consulted - NICM panel so far positive for elevated ferritin and B12 levels, as well as elevated Kamma and Lambda free light chains, though with normal ratio - HF team consult appreciated - Cardiac MRI on Thursday - s/p right heart cath NSTEMI, type I vs type II - cardiac enzymes remain flat - Received 48 hours of heparin therapy, no additional chest pain - Continue ASA 81 mg daily (loaded in the ED) - Continued on labetalol, uptitrated - Atorvastatin 40 mg p.o. daily (increased from 20 mg p.o. daily) - Nuclear stress test negative for ischemia ?? CKD IV-V Right sided YING s/p right renal artery bypass - Followed by Dr. Kemp, creatinine 3.6 on admission from 2.9 last month - Creatinine bumped overnight from 3-->3.46 - Transition to oral diuretic - Avoid nephrotoxic agents - Monitor kidney functions - Nephrology and vascular surgery consulted and following - renal duplex as well as repeat AAA duplex to be arranged outpatient per vascular Acute hyponatremia - initially though to be secondary to fluid overload, but worsening with diuresis - Level 127 today -Stopped IV lasix drip -Continue lower dose torsemide today - Follow levels daily Underweight - Body mass index is 15.59 kg/m??. - Suspect severe protein calorie malnutrition however albumin is normal - Nutrition consult placed - Renal boost supplementation - Patient denies weight change ?? Hypothyroidism - TSH remains elevated at 8.1-0-> 4.18, (level 8.83 this past September) - Free T3/T4 1.3, 1.74 respectively - Levothyroxine increased to 75 mg daily ?? FULL CODE Patient seen and discussed with Dr. Terrazas. REAGAN Barone 01/15/2019 Pager [phone] Cardiology Staff Addendum Patient Name: Pretty Harmon Patient Admit Date: 01/07/2019 I interviewed and examined the patient during comprehensive bedside rounds. I concur with the summary of interval events, active hospital-focused problem list and plan of care outlined in Ankush's note dated 01/15/2019. I personally reviewed the medications, laboratory results, treatment decisions and updated the patient on all of these elements. Active Hospital Problems Diagnosis ??? Systolic HF (heart failure) ??? Chest pain ??? Hypertensive urgency ??? CKD (chronic kidney disease) stage 5, GFR less than 15 ml/min ??? Severe protein-calorie malnutrition ??? Renal artery stenosis ??? Abdominal aortic aneurysm (AAA) without rupture Resolved Hospital Problems No resolved problems to display. Scheduled Meds: ??? carvedilol 6.25 mg Oral BID WC ??? hydrALAZINE 25 mg Oral TID ??? docusate sodium 100 mg Oral BID ??? heparin (Porcine) 5,000 Units Subcutaneous 2 times per day ??? levothyroxine 75 mcg Oral Daily ??? aspirin 81 mg Oral Daily ??? atorvastatin 20 mg Oral QPM ??? gabapentin 200 mg Oral Nightly ??? sodium chloride 0.9 % (flush) 5 mL Intravenous BID ??? pantoprazole 20 mg Oral Daily ??? amLODIPine 10 mg Oral Daily Most Recent Vitals: 01/15/19 1617 BP: 131/59 Pulse: 63 Resp: 16 Temp: 36.5 ??C (97.7 ??F) SpO2: 97% Labs Lab Comments: Lab Results Component Value Date WBC 10.7 (H) 01/15/2019 HGB 11.3 (L) 01/15/2019 HCT 32.9 (L) 01/15/2019 MCV 90.1 01/15/2019 PLATELET 269 01/15/2019 Lab Results Component Value Date CREATININE 3.83 (H) 01/15/2019 BUN 70 (H) 01/15/2019 NA 123 (L) 01/15/2019 K 3.4 (L) 01/15/2019 CL 73 (L) 01/15/2019 CO2 32 (H) 01/15/2019 Lab Results Component Value Date CK 160 01/08/2019 TROPONINT 0.05 (H) 01/08/2019 Intake/Output Summary (Last 24 hours) at 01/15/20192008 Last data filed at 01/15/2019 1800 Gross per 24 hour Intake 2070 ml Output 1800 ml Net 270 ml Patient Vitals for the past 168 hrs: Weight 01/15/19 0541 36.2 kg (79 lb 12.9 oz) 01/13/19 0439 35.8 kg (78 lb 14.8 oz) 01/12/19 0453 35.1 kg (77 lb 6.1 oz) 01/11/19 0344 36.5 kg (80 lb 7.5 oz) 01/10/19 0555 37 kg (81 lb 9.1 oz) 01/09/19 0500 37.8 kg (83 lb 5.3 oz) Evaluation/Plan: No complaints this a.m. on rounds. Apparently last night did note some lightheadedness at a blood pressure of about 119 systolic. Heart rate 62 and regular blood pressure 140/57. Fluidbalance -310 cc on 20 of torsemide. Creatinine has bumped up over the last 2 days, today is 3.83. She is waiting for a cardiac MRI and a renal artery duplex of her non-bypassed renal artery on Thursday. Today we will discontinue labetalol and start Coreg 6.25 mg twice a day and we will discontinue clonidine and continue hydralazine at 20 mg 3 times daily. We will also hold the torsemide in the hopes that her creatinine will begin heading down again. Otherwise as per Ms. Lechuga. I am a credentialed acetylene burner at [facility] and I am currently the attending of record for the patient's admission. I certify that this patient meets or has met the criteria for inpatient treatment for their acute condition meeting a minimum of two midnights. Thomas Terrazas MD would he get him Mainor Doyle MD - 01/14/2019 10:54 PM EDT HYPERTENSION/ NEPHROLOGY PROGRESS NOTE PATIENT: Pretty Harmon : 1950 REASON FOR CONSULTATION: Consulted by cardiology for acute kidney injury on chronic kidney disease, hypertension management. HPI: 68 y.o. female with PMHx significant for stage IV CKD with a creatinine running in the 2.75 range, due to long-standing uncontrolled hypertension and renal ischemia due to renal artery stenosis, rightrenal angioplasty on August 2018, with normal flow in the left kidney, with uncontrolled blood pressuredifficult to control due to hypotension as well as significant elevation of blood pressure at other times, history of abdominal aortic aneurysm, history of congestive heart failure with flash pulmonaryedema, came to the hospital on 01/24/2019 because of significant shortness of breath. Nephrology was consulted for kush on ckd and management of hypertension. Subjective: Patient was seen and examined today making good urine, she is on Torsemide, which is being titrated down. Not on oxygen No dizziness, her creatinine is up trending. ROS: 4 point review of sytem was done, everything was negative except for what was mentioned above. MEDICATIONS: ??? hydrALAZINE 25 mg Oral TID ??? cloNIDine 0.1 mg Oral BID ??? docusate sodium 100 mg Oral BID ??? torsemide 20 mg Oral Daily ??? heparin (Porcine) 5,000 Units Subcutaneous 2 times per day ??? labetalol 400 mg Oral BID ??? levothyroxine 75 mcg Oral Daily ??? aspirin 81 mg Oral Daily ??? atorvastatin 20 mg Oral QPM ??? gabapentin 200 mg Oral Nightly ??? sodium chloride 0.9 % (flush) 5 mL Intravenous BID ??? pantoprazole 20 mg Oral Daily ??? amLODIPine 10 mg Oral Daily PHYSICAL EXAM: Last value Range last 24 hrs Temperature Temp: 37.1 ??C (98.8 ??F) Temp: [36.4 ??C (97.5 ??F)-37.1 ??C (98.8 ??F)] Heart Rate Heart Rate: 66 Heart Rate: [60-69] Blood Pressure BP: 136/56 BP: (106-165)/(56-84) Respiratory Rate Resp: 17 Resp: [12-20] SpO2 SpO2: 98 % SpO2: [92 %-98 %] Patient is awake alert did not seem to be in acute distress no jaundice or mucosa moist Neck- supple trachea central Chest- bilateral air entry present clear. CVS-S1-S2 present Abdomen-nontender nondistended, bowel sounds present., Abdominal bruit present. Extremities-peripheral pulses present, no significant edema Neuro-patient is awake alert, moving all 4 limbs, motor examination is grossly normal. STUDIES: Labs: CBC: Recent Labs 01/14/19 0342 01/13/19 0456 01/12/19 0544 WBC 12.8* 12.2* 11.8* HGB 11.8 11.8 12.3 PLATELET 285 299 307 Chemistry: Recent Labs 01/14/19 0342 01/13/19 0456 01/12/19 0544 01/08/19 0004 01/07/19 2159 01/04/19 1252 NA 126* 125* 127* < > 131* 131* 133* K 3.7 4.1 3.3* < > 4.2 Not Perf 3.6 CL 75* 79* 79* < > 93* 92* 95* CO2 32* 30 27 < > 20* 18* 21* BUN 69* 64* 64* < > 59* 61* 44* CREATININE 3.97* 3.48* 3.46* < > 3.42* 3.68* 3.11* GLUCOSE -- -- -- -- 121 121 114 < > = values in this interval not displayed. Recent Labs 01/14/19 0342 01/13/19 0456 01/12/19 0544 01/10/19 1810 01/09/19 1906 01/04/19 1252 11/09/18 1226 09/03/18 0035 CALCIUM 9.8 9.7 9.7 < > -- < > -- < > 9.7 < > 9.5 < > 8.2* MAGNESIUM -- -- 0.89 -- 0.75 -- 0.83 < > -- -- -- < > 0.95 PHOS -- -- -- -- -- -- -- -- 4.0 -- 4.2 -- 4.4 < > = values in this interval not displayed. LFT's: Recent Labs 01/07/19 2159 01/04/19 1252 10/03/18 0329 06/14/18 1022 BILITOT 0.7 -- <0.2* 0.4 BILIDIR Not Perf -- 0.1 -- ALBUMIN 4.1 3.8 3.4 3.9 ALKPHOS 118* -- 72 57 ALT 33* -- 13 11 AST Not Perf -- IMPRESSION/ RECOMMENDATIONS: 68 y.o. female with PMHx significant for stage IV CKD with a creatinine running in the 2.75 range, due to long-standing uncontrolled hypertension and renal ischemia due to renal artery stenosis, right renal angioplasty on August 2018, with normal flow in the left kidney, with uncontrolled blood pressure difficult to control due to hypotension as well as significant elevation of blood pressure at other times, admitted with congestive heart failure with reduced ejection fraction with an ejection fractionof 20 to 25% this time. Nephro consulted for acute kidney injury on chronic kidney disease . #Acute kidney injury on chronic kidney disease stage IV-most probably secondary to cardiorenal syndrome. Patient has chronic kidney disease secondary to hypertensive nephrosclerosis/ischemia due to renal artery stenosis. Her creatinine is up trending with contraction alkalosis due to diuresisi Hypertension-patient is currently on amlodipine 10 milligrams p.o. daily, Hydralazine 25 TID, labetalol 400 mg twice daily. CHF with reduced EF- stress test is negative for reversible ischemia. Diuretic changed to torsemide 20 mg q daily. Giwhyfxqxgxc-qtrbfzmqactn-igzbcobvq to congestive heart failure. Potassium today is 3.7 Bone mineral metabolic syndrome-calcium normal Anemia- s/p iron infusion on on 01/07/19 Dizziness- recommend re checking orthostatic vitals. Pt had orthostatic vitals positive yesterday. Recommendation: Since the pt is saturating well on room air and is not short of breath,consider stopping diuretics Consider changing beta se to Carvedilol, metoprolol succinate or bisoprolol due to reduced EF. Thank you for the consult will follow the patient with you Seen and discussed with Dr. Vivek Negron MD 01/14/2019 Renal Attending: The patient was examined together with the renal fellow and her clinical and laboratory data were reviewed, I agree with the above note which accurately reflects our findings and assessment Rashaun Gates MD - 01/14/2019 1:38 PM EDT Images from the original note were not included. 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 / PA Responsible Attending: Thomas Terrazas II, MD Reason for continued hospitalization: Evaluation and management of systolic heart failure Newly identified cardiomyopathy CKD stage IV Right heart cath today Renal study today Telemetry monitoring Active Problems: Active Hospital Problems Diagnosis ??? Systolic HF (heart failure) ??? Chest pain ??? Hypertensive urgency ??? CKD (chronic kidney disease) stage 5, GFR less than 15 ml/min ??? Severe protein-calorie malnutrition Weight loss of 15.8% x 26 days from 47.4 kg (08/29) to 39.9 kg (10/04) and presents with lean muscle loss at clavicles and subcutaneous fat loss at triceps consistent with severe protein calorie malnutrition. ??? Renal artery stenosis ??? Abdominal aortic aneurysm (AAA) without rupture Resolved Hospital Problems No resolved problems to display. Interval History: We are decreased the torsemide to 20 mg PO daily and the clonidine to 0.1 mg PO BID yesterday. Nuclear stress test was negative for ischemia. We have ordered a right heart cath for today. She felt dizzy walking to the bathroom. Patient is now NPO for cath. Review of Systems: Review of Systems Constitutional: Negative. HENT: Negative. Eyes: Negative. Respiratory: Negative. Negative for shortness of breath (resolved). Cardiovascular: Negative. Negative for chest pain, palpitations and leg swelling. Gastrointestinal: Negative. Negative for abdominal distention and abdominal pain. Endocrine: Negative. Genitourinary: Negative. Negative for difficulty urinating. Musculoskeletal: Negative. Skin: Negative. Allergic/Immunologic: Negative. Neurological: Negative. Negative for dizziness, weakness and light-headedness. Hematological: Negative. Psychiatric/Behavioral: Negative. All other systems reviewed and are negative. Telemetry: Heart rate 60-70s, sinus rhythm Meds: Scheduled Meds: ??? [Jun] hydrALAZINE 25 mg Oral TID ??? [Jun] cloNIDine 0.1 mg Oral BID ??? [JUN Hold] docusate sodium 100 mg Oral BID ??? [JUN Hold] torsemide 20 mg Oral Daily ??? [JUN Hold] heparin (Porcine) 5,000 Units Subcutaneous 2 times per day ??? [JUN Hold] labetalol 400 mg Oral BID ??? [JUN Hold] levothyroxine 75 mcg Oral Daily ??? [JUN Hold] aspirin 81 mg Oral Daily ??? [JUN Hold] atorvastatin 20 mg Oral QPM ??? [JUN Hold] gabapentin 200 mg Oral Nightly ??? [JUN Hold] sodium chloride 0.9 % (flush) 5 mL Intravenous BID ??? [JUN Hold] pantoprazole 20 mg Oral Daily ??? [JUN Hold] amLODIPine 10 mg Oral Daily Continuous Infusions: PRN Meds:[Jun] bisacodyl, [Jun] alum-mag hydroxide-simeth, [Jun] sodium chloride 0.9 % (flush), [JUN Hold] lidocaine, [JUN Hold] nitroGLYcerin, [Jun] acetaminophen Physical Exam: Vital Signs: Last value Range last 24 hrs Temperature Temp: 37.1 ??C (98.8 ??F) Temp: [36.4 ??C (97.5 ??F)-37.1 ??C (98.8 ??F)] Heart Rate Heart Rate: 64 Heart Rate: [60-67] Blood Pressure BP: 127/56 BP: (127-165)/(56-68) Respiratory Rate Resp: 18 Resp: [16-18] SpO2 SpO2: 97 % SpO2: [92 %-99 %] Intake/Output Summary (Last 24 hours) at 01/14/2019 1358 Last data filed at 01/14/2019 1249 Gross per 24 hour Intake 170 ml Output 1400 ml Net -1230 ml Patient Vitals for the past 168 hrs: Weight 01/13/19 0439 35.8 kg (78 lb 14.8 oz) 01/12/19 0453 35.1 kg (77 lb 6.1 oz) 01/11/19 0344 36.5 kg (80 lb 7.5 oz) 01/10/19 0555 37 kg (81 lb 9.1 oz) 01/09/19 0500 37.8 kg (83 lb 5.3 oz) 01/08/19 0602 37.2 kg (82 lb 0.2 oz) Physical Exam Constitutional: No distress. Underweight, Body mass index is 16.02 kg/m??. Cardiovascular: Normal rate, regular rhythm and normal heart sounds. Pulmonary/Chest: She has no rales. Abdominal: Soft. Musculoskeletal: Normal range of motion. She exhibits no edema. Neurological: She is alert. Skin: Skin is warm and dry. She is not diaphoretic. Psychiatric: She has a normal mood and affect. Nursing note and vitals reviewed. patient is very slender and very lipscomb. Lab Comments: Recent Labs 01/14/1934101/13/196 01/12/19 0544 WBC 12.8* 12.2* 11.8* HGB 11.8 11.8 12.3 HCT 33.4* 34.2* 34.8* PLATELET 285 299 307 No results for input(s): INR in the last 168 hours. Recent Labs 01/14/1934101/13/196 01/12/19 0544 NA 126* 125* 127* K 3.7 4.1 3.3* CL 75* 79* 79* CO2 32* 30 27 BUN 69* 64* 64* CREATININE 3.97* 3.48* 3.46* Recent Labs 01/07/19 2159 AST Not Perf ALT 33* ALKPHOS 118* BILITOT 0.7 BILIDIR Not Perf Recent Labs 01/14/19 0342 01/13/19 0456 01/12/19 0544 01/10/19 1810 01/09/19 1906 CALCIUM 9.8 9.7 9.7 < > -- < > -- MAGNESIUM -- -- 0.89 -- 0.75 -- 0.83 < > = values in this interval not displayed. Recent Labs 01/08/19 1251 01/08/19 1002 01/08/19 0335 01/08/19 0004 CK 160 -- -- 231* TROPONINT 0.05* 0.05* 0.05* 0.05* Pertinent Radiographic/Diagnostic Results: I have independently visualized the following studies: ECG 01/12/2019: sinus rhythm with LVH with repolarization abnormalities TTE 01/08/2019 SUMMARY: ?? 1. The left ventricular chamber [...] See remainder of report for additional findings. Nuclear stress test 01/11/2019: INCIDENTAL CT FINDINGS: Bilateral pleural effusions, right greater than left are present. There is coronary artery and aortic calcification. An unchanged abdominal aortic aneurysm can be seen. IMPRESSION 1. No ischemia or scar. 2. Left ventricular function is mildly reduced with LVEF 47%. Wall motion abnormalities as above. Assessment: Pretty Harmon is a 68 y.o. female with a past medical history of AAA, hypertension, CKD stage IV-V, bilateral renal artery stenosis status post renal artery bypass August 2018, hypothyroid who presented to [facility] in the setting of acute dyspnea and abdominal pain, and underwent ED-ED transfer dueto OSH provider concern for AAA rupture. Seen by vascular surgery and aneurysmal rupture ruled out (see vascular consult note (01/07) . Ultimately she was admitted to cardiology due in the setting of ADHF exacerbation and hypertensive urgency. Trop (+) but flat at 0.05x3. She denies any chest pain. CT of the chest showing vascular congestion with pleural effusion (R>L). Initiated on IVP diuretics, followed by lasix drip which was up-titrated to 20 mg/hr in setting of low urine output. Echocardiogram revealed significantly reduced LV function as noted above. BP has been labile, requiring further antihypertensive agents. Unfortunately this has been difficult to control in the setting of her YING. We transition to oral diuretics yesterday and she is responded well to this. Nephrology consulted and following. Nuclear stress test was negative for ischemia, and work-up is ongoing for her now presumednonischemic cardiomyopathy. She will likely need a cardiac MRI but this may be as an out patient. Right heart cath planned today. NPO. Stable. Plan: Hypertensive Urgency - BP: (127-165)/(56-68) - trends over the last 24 hours - Labetalol increased to 400 mg BID, amlodipine 10 mg - Continue home dose of clonidine to 0.1 mg BID (had previously taken 0.1 mg BID at home PRN) - Transitioned to oral diuretic ?? Acute Systolic HF New CM, unclear if ischemic vs non-ischemic - Monitor intakes and outputs, daily weights, 2 gm sodium diet - Keep K greater than 4 mg/DL, MG greater than 1 mmol/L - Echo revealing newly reduced LVEF to 20-25% with diffuse wall motion abnormalities as above - Admit ProBNP >53620, repeat level the same - Marceline to be approaching euvolemia with improved symptom management - Responded well to oral diuretic yesterday -Decreased Torsemide dose to 20 mg daily - Close monitoring of renal function, nephrology consulted - NICM panel so far positive for elevated ferritin and B12 levels, as well as elevated Kamma and Lambda free light chains, though with normal ratio - HF team consult appreciated - Cardiac MRI w/ contrast, likely outpatient when creatinine stabilizes ?? - right heart cath today - consented NSTEMI, type I vs type II - cardiac enzymes remain flat - Received 48 hours of heparin therapy, no additional chest pain - Continue ASA 81 mg daily (loaded in the ED) - Continued on labetalol, uptitrated - Atorvastatin 40 mg p.o. daily (increased from 20 mg p.o. daily) - Nuclear stress test negative for ischemia ?? CKD IV-V Right sided YING s/p right renal artery bypass - Followed by Dr. Kemp, creatinine 3.6 on admission from 2.9 last month - Creatinine bumped overnight from 3-->3.46 - Transition to oral diuretic - Avoid nephrotoxic agents - Monitor kidney functions - Nephrology and vascular surgery consulted and following - renal duplex as well as repeat AAA duplex to be arranged outpatient per vascular Acute hyponatremia - initially though to be secondary to fluid overload, but worsening with diuresis - Level 127 today -Stopped IV lasix drip -Continue lower dose torsemide today - Follow levels daily Underweight - Body mass index is 15.41 kg/m??. - Suspect severe protein calorie malnutrition however albumin is normal - Nutrition consult placed - Renal boost supplementation - Patient denies weight change ?? Hypothyroidism - TSH remains elevated at 8.1-0-> 4.18, (level 8.83 this past September) - Free T3/T4 1.3, 1.74 respectively - Levothyroxine increased to 75 mg daily ?? DVT prophylaxis: subq heparin q 12 hrs CODE STATUS: FULL CODE Discussed with REAGAN Bear 01/14/2019 Pager [phone] CARDIOLOGY ATTENDING NOTE Patient: Pretty Harmon Date of Service: 01/14/2019 Date of Admission: 01/07/2019 Length of Stay Hospital Day 6 days Please see the above note by Hiwot Lechuga PA-C for details. I have interviewed and examined the patient independently and I concur with the assessment and plan. The case was discussed on cardiology rounds and we reviewed the plan of care with the team and patient. In addition, I certify that I am aD- H credentialed attending provider with admitting privileges and that the patient meets or has met medical necessity to require an inpatient IPI level of care meeting a minimum of two midnights or is on the CMS inpatient only procedure list (status C) due to: decompensated congestive heart failure requiring IV medication and fluid monitoring Mrs. Harmon is a 68 year old woman with history of HTN, CKD, bilateral renal artery stenosis and AAA s/p renal artery bypass who presented with new HFrEF. MPI negative for ischemia. Fluid balance -800 ccyesterday and -6.5 L for hospitalization. However, Cr increased to 3.97. Patient denies shortness of breath. Due to unclear volume status and increasing Cr, we obtained RHC which showed mRA 7, mPA 31, PCWP 24, CI 2.44 by Yamini and 2.98 by Td. I think this is euvolemic point for her. Thus, we will keep use low dose diuretic to keep net even. Plan cardiac MRI either Thursday or can be done as outpatient. Also, would consider renal duplex of non-bypassed renal artery as prior seen elevated velocities and wonder if she has worsening stenosis there. In terms of anti-hypertensive regimen, we will continue to titrate down clonidine; start low dose TID hydralazine. We will change labetalol to carvedilol given HFrEF. Not a candidate for ACEI/MRA at this point due to still unclear renal function. Rashaun Gates MD, MPH Cardiovascular Medicine Laura Seay LD - 01/14/2019 10:30 AM EDT Nutrition Progress Note and Answer to Consult Pretty Harmon is a 68 y.o. female Reason for intervention: Consult - follow-up from nutrition note 01/08/19 Nutrition Recommendations: ?? Continue diet as ordered ?? Nepro Supplements only 1 daily. ?? Small frequent meals--calorically dense ?? Consider appetite stimulant Patient Active Problem List Diagnosis Code ??? [...] renal failure, stage 4 (severe) N18.4, D63.1 Past Medical History: Diagnosis Date ??? AAA (abdominal aortic aneurysm) [id number] angiogram; 3.2 cm infrarenal ??? Constipation ??? Dyslipidemia ??? Hypertension ??? Insomnia ??? Peripheral vascular disease ??? Renal artery stenosis R; per 2009 angiogram Active Orders Diet NPO diet (Give Meds) Frequency: Effective Now Number of Occurrences: Until Specified Nourishments Adult diet Oral Supplements Nepro (Renal) Frequency: Effective Now Number of Occurrences: Until Specified Admit Weight: 37.2 kg Estimated body mass index is 15.41 kg/m?? as calculated from the following: Height as of 12/16/18: 152.4 cm (5'). Weight as of this encounter: 35.8 kg (78 lb 14.8 oz). 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 and notes adherence to low sodium diet SEAT BUILDER for fluid management of CHF Lab Results Component Value Date NA 126 (L) 01/14/2019 K 3.7 01/14/2019 CL 75 (L) 01/14/2019 CO2 32 (H) 01/14/2019 BUN 69 (H) 01/14/2019 CREATININE 3.97 (H) 01/14/2019 GLUCOSE 121 01/08/2019 MAGNESIUM 0.89 01/12/2019 CALCIUM 9.8 01/14/2019 PHOS 4.0 01/04/2019 AST Not Perf 01/07/2019 ALT 33 (H) 01/07/2019 ALKPHOS 118 (H) 01/07/2019 BILITOT 0.7 01/07/2019 BILIDIR Not Perf 01/07/2019 CRP <0.2 06/14/2018 Last Bowel Movement: 01/02/19(per patient report) Pt reporting a fair appetite eating ~50% of meals, discussed appropriate choices and setting up daily PM snack. TAMI Huber Beeper #: [id number] Mainor Doyle MD - 01/13/2019 8:50 PM EDT HYPERTENSION/ NEPHROLOGY PROGRESS NOTE PATIENT: Pretty Harmon : 1950 REASON FOR CONSULTATION: Consulted by cardiology for acute kidney injury on chronic kidney disease, hypertension management. HPI: 68 y.o. female with PMHx significant for stage IV CKD with a creatinine running in the 2.75 range, due to long-standing uncontrolled hypertension and renal ischemia due to renal artery stenosis, rightrenal angioplasty on August 2018, with normal flow in the left kidney, with uncontrolled blood pressuredifficult to control due to hypotension as well as significant elevation of blood pressure at other times, history of abdominal aortic aneurysm, history of congestive heart failure with flash pulmonaryedema, came to the hospital on 01/24/2019 because of significant shortness of breath. Nephrology was consulted for kush on ckd and management of hypertension. Subjective: Patient was seen and examined today making good urine, she is on Torsemide, which is being titrated down. Not on oxygen Had dizziness when she went to bathroom today. ROS: 4 point review of sytem was done, everything was negative except for what was mentioned above. MEDICATIONS: ??? [START ON 01/14/2019] torsemide 20 mg Oral Daily ??? cloNIDine 0.1 mg Oral BID ??? heparin (Porcine) 5,000 Units Subcutaneous 2 times per day ??? labetalol 400 mg Oral BID ??? levothyroxine 75 mcg Oral Daily ??? aspirin 81 mg Oral Daily ??? atorvastatin 20 mg Oral QPM ??? gabapentin 200 mg Oral Nightly ??? sodium chloride 0.9 % (flush) 5 mL Intravenous BID ??? pantoprazole 20 mg Oral Daily ??? amLODIPine 10 mg Oral Daily PHYSICAL EXAM: Last value Range last 24 hrs Temperature Temp: 36.9 ??C (98.4 ??F) Temp: [36.4 ??C (97.5 ??F)-36.9 ??C (98.4 ??F)] Heart Rate Heart Rate: 65 Heart Rate: [61-98] Blood Pressure BP: 145/61 BP: (129-150)/(61-73) Respiratory Rate Resp: 18 Resp: [16-18] SpO2 SpO2: 99 % SpO2: [96 %-99 %] Patient is awake alert did not seem to be in acute distress no jaundice or mucosa moist Neck- supple trachea central Chest- bilateral air entry present clear. CVS-S1-S2 present Abdomen-nontender nondistended, bowel sounds present., Abdominal bruit present. Extremities-peripheral pulses present, no significant edema Neuro-patient is awake alert, moving all 4 limbs, motor examination is grossly normal. STUDIES: Labs: CBC: Recent Labs 01/13/19 04501/12/19 0544 01/11/19 0455 WBC 12.2* 11.8* 11.2* HGB 11.8 12.3 11.2* PLATELET 299 307 286 Chemistry: Recent Labs 01/13/19 0456 01/12/19 0544 01/11/19 0455 01/08/19 0004 01/07/19215801/04/19 1252 NA 125* 127* 125* < > 131* 131* 133* K 4.1 3.3* 4.0 < > 4.2 Not Perf 3.6 CL 79* 79* 84* < > 93* 92* 95* CO2 30 27 26 < > 20* 18* 21* BUN 64* 64* 58* < > 59* 61* 44* CREATININE 3.48* 3.46* 3.01* < > 3.42* 3.68* 3.11* GLUCOSE -- -- -- -- 121 121 114 < > = values in this interval not displayed. Recent Labs 01/13/19 04501/12/19 0544 01/11/19 0455 01/10/19 1810 01/09/19 1906 01/04/19 1252 11/09/18 1226 09/03/18 0035 CALCIUM 9.7 9.7 9.1 -- < > -- < > 9.7 < > 9.5 < > 8.2* MAGNESIUM -- 0.89 -- 0.75 -- 0.83 < > -- -- -- < > 0.95 PHOS -- -- -- -- -- -- -- 4.0 -- 4.2 -- 4.4 < > = values in this interval not displayed. LFT's: Recent Labs 01/07/19215801/04/19 1252 10/03/18 0329 06/14/18 1022 BILITOT 0.7 -- <0.2* 0.4 BILIDIR Not Perf -- 0.1 -- ALBUMIN 4.1 3.8 3.4 3.9 ALKPHOS 118* -- 72 57 ALT 33* -- 13 11 AST Not Perf -- IMPRESSION/ RECOMMENDATIONS: 68 y.o. female with PMHx significant for stage IV CKD with a creatinine running in the 2.75 range, due to long-standing uncontrolled hypertension and renal ischemia due to renal artery stenosis, right renal angioplasty on August 2018, with normal flow in the left kidney, with uncontrolled blood pressure difficult to control due to hypotension as well as significant elevation of blood pressure at other times, admitted with congestive heart failure with reduced ejection fraction with an ejection fractionof 20 to 25% this time. Nephro consulted for acute kidney injury on chronic kidney disease . #Acute kidney injury on chronic kidney disease stage IV-most probably secondary to cardiorenal syndrome. Patient has chronic kidney disease secondary to hypertensive nephrosclerosis/ischemia due to renal artery stenosis. Her creatinine has gone up to 3.46 today from 3.01 yesterday ( Cr. 3.68 at the time of admission ) Hypertension-patient is currently on amlodipine 10 milligrams p.o. daily, clonidine 0.1 mg twice daily, labetalol 400 mg twice daily. Amlodipine 10 mg. Primary team adjusting blood pressure medication. CHF with reduced EF- stress test is negative for reversible ischemia. Diuretic changed to torsemide 20 mg q daily. Gsnsginwfdjm-golvotsjpjzt-rgdyshmed to congestive heart failure. Potassium today is 4. Bone mineral metabolic syndrome-calcium normal Anemia- s/p iron infusion on on 01/07/19 Dizziness- recommend re checking orthostatic vitals. Pt had orthostatic vitals positive yesterday. Recommendation: Since the pt is saturating well on room air and is not short of breath,cardiology is titrating down diuretics. Consider changing beta se to Carvedilol, metoprolol succinate or bisoprolol due to reduced EF. Thank you for the consult will follow the patient with you Seen and discussed with Dr. Vivek Negron MD 01/13/2019 Renal Attending: The patient was examined together with the renal fellow and I agree with the above note which accurately reflects our findings and assessment Thomas Terrazas II, MD - 01/13/2019 8:56 AM EDT Images from the original note were not included. 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 / PA Responsible Attending: Thomas Terrazas II, MD Reason for continued hospitalization: Evaluation and management of systolic heart failure Newly identified cardiomyopathy CKD stage IV Cardiac MRI Telemetry monitoring Active Problems: Active Hospital Problems Diagnosis ??? Systolic HF (heart failure) ??? Chest pain ??? Hypertensive urgency ??? CKD (chronic kidney disease) stage 5, GFR less than 15 ml/min ??? Severe protein-calorie malnutrition Weight loss of 15.8% x 26 days from 47.4 kg (08/29) to 39.9 kg (10/04) and presents with lean muscle loss at clavicles and subcutaneous fat loss at triceps consistent with severe protein calorie malnutrition. ??? Renal artery stenosis ??? Abdominal aortic aneurysm (AAA) without rupture Resolved Hospital Problems No resolved problems to display. Interval History: We are decreasing the torsemide to 20 mg PO daily and the clonidine to 0.1 mg PO BID. Nuclear stresstest was negative for ischemia. We have ordered a cardiac MRI today. Review of Systems: Review of Systems Constitutional: Negative. HENT: Negative. Eyes: Negative. Respiratory: Negative. Negative for shortness of breath (resolved). Cardiovascular: Negative. Negative for chest pain, palpitations and leg swelling. Gastrointestinal: Negative. Negative for abdominal distention and abdominal pain. Endocrine: Negative. Genitourinary: Negative. Negative for difficulty urinating. Musculoskeletal: Negative. Skin: Negative. Allergic/Immunologic: Negative. Neurological: Negative. Negative for dizziness, weakness and light-headedness. Hematological: Negative. Psychiatric/Behavioral: Negative. All other systems reviewed and are negative. Telemetry: Heart rate 60-70s, sinus rhythm Meds: Scheduled Meds: ??? [START ON 01/14/2019] torsemide 20 mg Oral Daily ??? cloNIDine 0.1 mg Oral BID ??? heparin (Porcine) 5,000 Units Subcutaneous 2 times per day ??? labetalol 400 mg Oral BID ??? levothyroxine 75 mcg Oral Daily ??? aspirin 81 mg Oral Daily ??? atorvastatin 20 mg Oral QPM ??? gabapentin 200 mg Oral Nightly ??? sodium chloride 0.9 % (flush) 5 mL Intravenous BID ??? pantoprazole 20 mg Oral Daily ??? amLODIPine 10 mg Oral Daily Continuous Infusions: PRN Meds:alum-mag hydroxide-simeth, sodium chloride 0.9 % (flush), lidocaine, nitroGLYcerin, acetaminophen Physical Exam: Vital Signs: Last value Range last 24 hrs Temperature Temp: 36.7 ??C (98.1 ??F) Temp: [36.7 ??C (98.1 ??F)-37.3 ??C (99.1 ??F)] Heart Rate Heart Rate: 61 Heart Rate: [61-98] Blood Pressure BP: 129/66 BP: (129-153)/(64-73) Respiratory Rate Resp: 17 Resp: [16-17] SpO2 SpO2: 99 % SpO2: [96 %-99 %] Intake/Output Summary (Last 24 hours) at 01/13/2019 1449 Last data filed at 01/13/2019 1200 Gross per 24 hour Intake 640 ml Output 1650 ml Net -1010 ml Patient Vitals for the past 168 hrs: Weight 01/13/19 0439 35.8 kg (78 lb 14.8 oz) 01/12/19 0453 35.1 kg (77 lb 6.1 oz) 01/11/19 0344 36.5 kg (80 lb 7.5 oz) 01/10/19 0555 37 kg (81 lb 9.1 oz) 01/09/19 0500 37.8 kg (83 lb 5.3 oz) 01/08/19 0602 37.2 kg (82 lb 0.2 oz) Physical Exam Constitutional: No distress. Underweight, Body mass index is 16.02 kg/m??. Cardiovascular: Normal rate, regular rhythm and normal heart sounds. Pulmonary/Chest: She has no rales. Abdominal: Soft. Musculoskeletal: Normal range of motion. She exhibits no edema. Neurological: She is alert. Skin: Skin is warm and dry. She is not diaphoretic. Psychiatric: She has a normal mood and affect. Nursing note and vitals reviewed. Lab Comments: Recent Labs 01/13/19 0456 01/12/19 0544 01/11/19 0455 WBC 12.2* 11.8* 11.2* HGB 11.8 12.3 11.2* HCT 34.2* 34.8* 32.7* PLATELET 299 307 286 No results for input(s): INR in the last 168 hours. Recent Labs 01/13/19 0456 01/12/19 0544 01/11/19 0455 NA 125* 127* 125* K 4.1 3.3* 4.0 CL 79* 79* 84* CO2 30 27 26 BUN 64* 64* 58* CREATININE 3.48* 3.46* 3.01* Recent Labs 01/07/19 2159 AST Not Perf ALT 33* ALKPHOS 118* BILITOT 0.7 BILIDIR Not Perf Recent Labs 01/13/19 0456 01/12/19 0544 01/11/19 0455 01/10/19 1810 01/09/19 1906 CALCIUM 9.7 9.7 9.1 -- < > -- MAGNESIUM -- 0.89 -- 0.75 -- 0.83 < > = values in this interval not displayed. Recent Labs 01/08/19 1251 01/08/19 1002 01/08/19 0335 01/08/19 0004 CK 160 -- -- 231* TROPONINT 0.05* 0.05* 0.05* 0.05* Pertinent Radiographic/Diagnostic Results: I have independently visualized the following studies: ECG 01/12/2019: sinus rhythm with LVH with repolarization abnormalities TTE 01/08/2019 SUMMARY: ?? 1. The left ventricular chamber [...] See remainder of report for additional findings. Nuclear stress test 01/11/2019: INCIDENTAL CT FINDINGS: Bilateral pleural effusions, right greater than left are present. There is coronary artery and aortic calcification. An unchanged abdominal aortic aneurysm can be seen. IMPRESSION 1. No ischemia or scar. 2. Left ventricular function is mildly reduced with LVEF 47%. Wall motion abnormalities as above. Assessment: Pretty Harmon is a 68 y.o. female with a past medical history of AAA, hypertension, CKD stage IV-V, bilateral renal artery stenosis status post renal artery bypass August 2018, hypothyroid who presented to [facility] in the setting of acute dyspnea and abdominal pain, and underwent ED-ED transfer dueto OSH provider concern for AAA rupture. Seen by vascular surgery and aneurysmal rupture ruled out (see vascular consult note (01/07) . Ultimately she was admitted to cardiology due in the setting of ADHF exacerbation and hypertensive urgency. Trop (+) but flat at 0.05x3. She denies any chest pain. CT of the chest showing vascular congestion with pleural effusion (R>L). Initiated on IVP diuretics, followed by lasix drip which was up-titrated to 20 mg/hr in setting of low urine output. Echocardiogram revealed significantly reduced LV function as noted above. BP has been labile, requiring further antihypertensive agents. Unfortunately this has been difficult to control in the setting of her YING. We transition to oral diuretics yesterday and she is responded well to this. Nephrology consulted and following. Nuclear stress test was negative for ischemia, and work-up is ongoing for her now presumednonischemic cardiomyopathy. She will likely need a cardiac MRI for further evaluation, and this is fine with her creat of 3.48 as we checked regarding the new dye that they use. Stable. Plan: Hypertensive Urgency - BP: (129-153)/(64-73) - trends over the last 24 hours - Labetalol increased to 400 mg BID, amlodipine 10 mg - Continue home dose of clonidine to 0.1 mg BID (had previously taken 0.1 mg BID at home PRN) - Transitioned to oral diuretic ?? Acute Systolic HF New CM, unclear if ischemic vs non-ischemic - Monitor intakes and outputs, daily weights, 2 gm sodium diet - Keep K greater than 4 mg/DL, MG greater than 1 mmol/L - Echo revealing newly reduced LVEF to 20-25% with diffuse wall motion abnormalities as above - Admit ProBNP >54878, repeat level the same - Marceline to be approaching euvolemia with improved symptom management - Responded well to oral diuretic yesterday -Decrease Torsemide dose to 20 mg daily - Close monitoring of renal function, nephrology consulted - NICM panel so far positive for elevated ferritin and B12 levels, as well as elevated Kamma and Lambda free light chains, though with normal ratio - HF team consult appreciated - Cardiac MRI w/ contrast, likely outpatient when creatinine stabilizes ?? NSTEMI, type I vs type II - cardiac enzymes remain flat - Received 48 hours of heparin therapy, no additional chest pain - Continue ASA 81 mg daily (loaded in the ED) - Continued on labetalol, uptitrated - Atorvastatin 40 mg p.o. daily (increased from 20 mg p.o. daily) - Nuclear stress test negative for ischemia ?? CKD IV-V Right sided YING s/p right renal artery bypass - Followed by Dr. Kemp, creatinine 3.6 on admission from 2.9 last month - Creatinine bumped overnight from 3-->3.46 - Transition to oral diuretic - Avoid nephrotoxic agents - Monitor kidney functions - Nephrology and vascular surgery consulted and following - renal duplex as well as repeat AAA duplex to be arranged outpatient per vascular Acute hyponatremia - initially though to be secondary to fluid overload, but worsening with diuresis - Level 127 today -Stopped IV lasix drip -Continue lower dose torsemide today - Follow levels daily Underweight - Body mass index is 15.41 kg/m??. - Suspect severe protein calorie malnutrition however albumin is normal - Nutrition consult placed - Renal boost supplementation - Patient denies weight change ?? Hypothyroidism - TSH remains elevated at 8.1-0-> 4.18, (level 8.83 this past September) - Free T3/T4 1.3, 1.74 respectively - Levothyroxine increased to 75 mg daily ?? DVT prophylaxis: subq heparin q 12 hrs CODE STATUS: FULL CODE Discussed with MD Hiwot Hines II, PA 01/13/2019 Pager [phone] 01/13/2019 Cardiology Staff Addendum Patient Name: Pretty Harmon Patient Admit Date: 01/07/2019 I interviewed and examined the patient during comprehensive bedside rounds. I concur with the summary of interval events, active hospital-focused problem list and plan of care outlined in Ms. Lechuga's note dated 01/13/2019. I personally reviewed the medications, laboratory results, treatment decisions and updated the patient on all of these elements. Active Hospital Problems Diagnosis ??? Systolic HF (heart failure) ??? Chest pain ??? Hypertensive urgency ??? CKD (chronic kidney disease) stage 5, GFR less than 15 ml/min ??? Severe protein-calorie malnutrition ??? Renal artery stenosis ??? Abdominal aortic aneurysm (AAA) without rupture Resolved Hospital Problems No resolved problems to display. Scheduled Meds: ??? [START ON 01/14/2019] torsemide 20 mg Oral Daily ??? cloNIDine 0.1 mg Oral BID ??? heparin (Porcine) 5,000 Units Subcutaneous 2 times per day ??? labetalol 400 mg Oral BID ??? levothyroxine 75 mcg Oral Daily ??? aspirin 81 mg Oral Daily ??? atorvastatin 20 mg Oral QPM ??? gabapentin 200 mg Oral Nightly ??? sodium chloride 0.9 % (flush) 5 mL Intravenous BID ??? pantoprazole 20 mg Oral Daily ??? amLODIPine 10 mg Oral Daily Most Recent Vitals: 01/13/19 1210 BP: 129/66 Pulse: 61 Resp: 17 Temp: 36.7 ??C (98.1 ??F) SpO2: 99% Labs Lab Comments: Lab Results Component Value Date WBC 12.2 (H) 01/13/2019 HGB 11.8 01/13/2019 HCT 34.2 (L) 01/13/2019 MCV 87.9 01/13/2019 PLATELET 299 01/13/2019 Lab Results Component Value Date CREATININE 3.48 (H) 01/13/2019 BUN 64 (H) 01/13/2019 NA 125 (L) 01/13/2019 K 4.1 01/13/2019 CL 79 (L) 01/13/2019 CO2 30 01/13/2019 Lab Results Component Value Date CK 160 01/08/2019 TROPONINT 0.05 (H) 01/08/2019 Intake/Output Summary (Last 24 hours) at 01/13/2019 1500 Last data filed at 01/13/2019 1200 Gross per 24 hour Intake 640 ml Output 1650 ml Net -1010 ml Patient Vitals for the past 168 hrs: Weight 01/13/19 0439 35.8 kg (78 lb 14.8 oz) 01/12/19 0453 35.1 kg (77 lb 6.1 oz) 01/11/19 0344 36.5 kg (80 lb 7.5 oz) 01/10/19 0555 37 kg (81 lb 9.1 oz) 01/09/19 0500 37.8 kg (83 lb 5.3 oz) 01/08/19 0602 37.2 kg (82 lb 0.2 oz) Evaluation/Plan: No complaints this a.m. on rounds. Heart rate 64-98, blood pressure range 1 29-1 50systolic. Weight 35.8 kg, down from 37.2 on admission. Creatinine 3.48 not really change compared with yesterday at 3.46. Review of nonischemic cardiomyopathy work-up so far unrevealing. Today we will try to decrease her clonidine to 0.1 mg twice daily and decrease her torsemide to 20 mg a day. We will pursue a cardiac MR study with contrast but this may need to be done as an outpatient. ProWill survey opinions from Nephrology and Vascular Surgery regarding patency of RA bypass graft/renal artery regarding s patency of her renal bypass graft/renal artery stenosis and options for revascularization. Otherwise as per Ms. Lechuga. I am a credentialed acetylene burner at [facility] and I am currently the attending of record for the patient's admission. I certify that this patient meets or has met the criteria for inpatient treatment for their acute condition meeting a minimum of two midnights. 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 Systolic HF (heart failure) ??? Chest pain ??? Hypertensive urgency ??? CKD (chronic kidney disease) stage 5, GFR less than 15 ml/min ??? Severe protein-calorie malnutrition Weight loss of 15.8% x 26 days from 47.4 kg (08/29) to 39.9 kg (10/04) and presents with lean muscle loss at clavicles and subcutaneous fat loss at triceps consistent with severe protein calorie malnutrition. ??? Renal artery stenosis ??? Abdominal aortic aneurysm (AAA) without rupture Resolved Hospital Problems No resolved problems to display. Interval History: No acute events noted overnight. Cramping to her fingertips and feet have resolved. We transitioned to oral diuretics yesterday and she had an adequate response to 1 dose of [id number] mg. Nuclear stress test was negative for ischemia. She does report some mild lightheadedness whenshe ambulates out of bed. We discussed ongoing medication adjustments for her blood pressure. Review of Systems: Review of Systems Respiratory: Negative for shortness of breath (resolved). Cardiovascular: Negative for chest pain, palpitations and leg swelling. Gastrointestinal: Negative for abdominal distention and abdominal pain. Genitourinary: Negative for difficulty urinating. Neurological: Negative for dizziness, weakness and light-headedness. All other systems reviewed and are negative. Telemetry: Heart rate 60-70s, sinus rhythm Meds: Scheduled Meds: ??? torsemide 40 mg Oral Daily ??? potassium chloride 40 mEq Oral Q4H ??? cloNIDine 0.3 mg Oral BID ??? labetalol 400 mg Oral BID ??? levothyroxine 75 mcg Oral Daily ??? aspirin 81 mg Oral Daily ??? atorvastatin 20 mg Oral QPM ??? gabapentin 200 mg Oral Nightly ??? sodium chloride 0.9 % (flush) 5 mL Intravenous BID ??? pantoprazole 20 mg Oral Daily ??? amLODIPine 10 mg Oral Daily ??? magnesium oxide 400 mg Oral BID Continuous Infusions: PRN Meds:alum-mag hydroxide-simeth, sodium chloride 0.9 % (flush), lidocaine, nitroGLYcerin, acetaminophen Physical Exam: Vital Signs: Last value Range last 24 hrs Temperature Temp: 37.2 ??C (99 ??F) Temp: [36.3 ??C (97.3 ??F)-37.2 ??C (99 ??F)] Heart Rate Heart Rate: 89 Heart Rate: [55-89] Blood Pressure BP: 166/66 BP: (111-172)/(52-90) Respiratory Rate Resp: 17 Resp: [16-18] SpO2 SpO2: 93 % SpO2: [93 %-98 %] Intake/Output Summary (Last 24 hours) at 01/12/2019 1055 Last data filed at 01/12/2019 0800 Gross per 24 hour Intake 917.3 ml Output 1950 ml Net -1032.7 ml Patient Vitals for the past 168 hrs: Weight 01/12/19 0453 35.1 kg (77 lb 6.1 oz) 01/11/19 0344 36.5 kg (80 lb 7.5 oz) 01/10/19 0555 37 kg (81 lb 9.1 oz) 01/09/19 0500 37.8 kg (83 lb 5.3 oz) 01/08/19 0602 37.2 kg (82 lb 0.2 oz) Physical Exam Constitutional: No distress. Underweight, Body mass index is 16.02 kg/m??. Cardiovascular: Normal rate, regular rhythm and normal heart sounds. Pulmonary/Chest: She has no rales. Abdominal: Soft. Musculoskeletal: Normal range of motion. She exhibits no edema. Neurological: She is alert. Skin: Skin is warm and dry. She is not diaphoretic. Psychiatric: She has a normal mood and affect. Nursing note and vitals reviewed. Lab Comments: Recent Labs 01/12/1954301/11/1945401/10/1950 WBC 11.8* 11.2* 11.5* HGB 12.3 11.2* 10.6* HCT 34.8* 32.7* 31.2* PLATELET 307 286 281 No results for input(s): INR in the last 168 hours. Recent Labs 01/12/1954301/11/1945401/10/19180901/10/19 0051 NA 127* 125* 127* 131* K 3.3* 4.0 4.3 3.6 CL 79* 84* 86* 89* CO2 27 26 24 25 BUN 64* 58* -- 61* CREATININE 3.46* 3.01* -- 3.23* Recent Labs 01/07/19 2159 AST Not Perf ALT 33* ALKPHOS 118* BILITOT 0.7 BILIDIR Not Perf Recent Labs 01/12/1954301/11/195 01/10/19180901/10/19 0051 01/09/19 1906 01/09/19 0234 CALCIUM 9.7 9.1 -- 8.9 -- 8.9 MAGNESIUM -- -- 0.75 -- 0.83 0.81 Recent Labs 01/08/19 1251 01/08/19 1002 01/08/19 0335 01/08/19 0004 CK 160 -- -- 231* TROPONINT 0.05* 0.05* 0.05* 0.05* Pertinent Radiographic/Diagnostic Results: I have independently visualized the following studies: ECG 01/12/2019: sinus rhythm with LVH with repolarization abnormalities TTE 01/08/2019 SUMMARY: ?? 1. The left ventricular chamber [...] See remainder of report for additional findings. Nuclear stress test 01/11/2019: INCIDENTAL CT FINDINGS: Bilateral pleural effusions, right greater than left are present. There is coronary artery and aortic calcification. An unchanged abdominal aortic aneurysm can be seen. IMPRESSION 1. No ischemia or scar. 2. Left ventricular function is mildly reduced with LVEF 47%. Wall motion abnormalities as above. Assessment: Pretty Harmon is a 68 y.o. female with a past medical history of AAA, hypertension, CKD stage IV-V, bilateral renal artery stenosis status post renal artery bypass August 2018, hypothyroid who presented to [facility] in the setting of acute dyspnea and abdominal pain, and underwent ED-ED transfer dueto OSH provider concern for AAA rupture. Seen by vascular surgery and aneurysmal rupture ruled out (see vascular consult note (01/07) . Ultimately she was admitted to cardiology due in the setting of ADHF exacerbation and hypertensive urgency. Trop (+) but flat at 0.05x3. She denies any chest pain. CT of the chest showing vascular congestion with pleural effusion (R>L). Initiated on IVP diuretics, followed by lasix drip which was up-titrated to 20 mg/hr in setting of low urine output. Echocardiogram revealed significantly reduced LV function as noted above. BP has been labile, requiring further antihypertensive agents. Unfortunately this has been difficult to control in the setting of her YING. We transition to oral diuretics yesterday and she is responded well to this. Nephrology consulted and following. Nuclear stress test was negative for ischemia, and work-up is ongoing for her now presumednonischemic cardiomyopathy. She will likely need a cardiac MRI for further evaluation, though we maynot be able to have this done during her current hospitalization secondary to her creatinine and theneed for contrast during imaging. Plan: Hypertensive Urgency - BP: (111-172)/(52-90) - trends over the last 24 hours - Labetalol increased to 400 mg BID, amlodipine 10 mg - Continue clonidine to 0.3 mg BID (had previously taken 0.1 mg BID at home PRN) - Transitioned to oral diuretic ?? Acute Systolic HF New CM, unclear if ischemic vs non-ischemic - Monitor intakes and outputs, daily weights, 2 gm sodium diet - Keep K greater than 4 mg/DL, MG greater than 1 mmol/L - Echo revealing newly reduced LVEF to 20-25% with diffuse wall motion abnormalities as above - Admit ProBNP >41460, repeat level the same - Marceline to be approaching euvolemia with improved symptom management - Responded well to oral diuretic yesterday -Decrease Torsemide dose to 40 mg daily - Close monitoring of renal function, nephrology consulted - NICM panel so far positive for elevated ferritin and B12 levels, as well as elevated Kamma and Lambda free light chains, though with normal ratio - HF team consult - Cardiac MRI w/ contrast, likely outpatient when creatinine stabilizes ?? NSTEMI, type I vs type II - cardiac enzymes remain flat - Received 48 hours of heparin therapy, no additional chest pain - Continue ASA 81 mg daily (loaded in the ED) - Continued on labetalol, uptitrated - Atorvastatin 40 mg p.o. daily (increased from 20 mg p.o. daily) - Nuclear stress test negative for ischemia ?? CKD IV-V Right sided YING s/p right renal artery bypass - Followed by Dr. Kemp, creatinine 3.6 on admission from 2.9 last month - Creatinine bumped overnight from 3-->3.46 - Transition to oral diuretic - Avoid nephrotoxic agents - Monitor kidney functions - Nephrology and vascular surgery consulted and following - renal duplex as well as repeat AAA duplex to be arranged outpatient per vascular Acute hyponatremia - initially though to be secondary to fluid overload, but worsening with diuresis - Level 127 today -Stopped IV lasix drip -Continue lower dose torsemide today - Follow levels daily Underweight - Body mass index is 15.11 kg/m??. - Suspect severe protein calorie malnutrition however albumin is normal - Nutrition consult placed - Renal boost supplementation - Patient denies weight change ?? Hypothyroidism - TSH remains elevated at 8.1-0-> 4.18, (level 8.83 this past September) - Free T3/T4 1.3, 1.74 respectively - Levothyroxine increased to 75 mg daily ?? DVT prophylaxis: subq heparin q 12 hrs CODE STATUS: FULL CODE Discussed with MD Bertha Hines II, APRN Cardiovascular Medicine 01/12/2019 Cardiology Staff Addendum Patient Name: Pretty Harmon Patient Admit Date: 01/07/2019 I interviewed and examined the patient during comprehensive bedside rounds. I concur with the summary of interval events, active hospital-focused problem list and plan of care outlined in Ms. Ruano's note dated 01/12/2019. I personally reviewed the medications, laboratory results, treatment decisions and updated the patient on all of these elements. Active Hospital Problems Diagnosis ??? Systolic HF (heart failure) ??? Chest pain ??? Hypertensive urgency ??? CKD (chronic kidney disease) stage 5, GFR less than 15 ml/min ??? Severe protein-calorie malnutrition ??? Renal artery stenosis ??? Abdominal aortic aneurysm (AAA) without rupture Resolved Hospital Problems No resolved problems to display. Scheduled Meds: ??? torsemide 40 mg Oral Daily ??? potassium chloride 40 mEq Oral Q4H ??? heparin (Porcine) 5,000 Units Subcutaneous 2 times per day ??? cloNIDine 0.3 mg Oral BID ??? labetalol 400 mg Oral BID ??? levothyroxine 75 mcg Oral Daily ??? aspirin 81 mg Oral Daily ??? atorvastatin 20 mg Oral QPM ??? gabapentin 200 mg Oral Nightly ??? sodium chloride 0.9 % (flush) 5 mL Intravenous BID ??? pantoprazole 20 mg Oral Daily ??? amLODIPine 10 mg Oral Daily ??? magnesium oxide 400 mg Oral BID Most Recent Vitals: 01/12/19 1120 BP: 120/55 Pulse: 70 Resp: Temp: SpO2: Labs Lab Comments: Lab Results Component Value Date WBC 11.8 (H) 01/12/2019 HGB 12.3 01/12/2019 HCT 34.8 (L) 01/12/2019 MCV 88.3 01/12/2019 PLATELET 307 01/12/2019 Lab Results Component Value Date CREATININE 3.46 (H) 01/12/2019 BUN 64 (H) 01/12/2019 NA 127 (L) 01/12/2019 K 3.3 (L) 01/12/2019 CL 79 (L) 01/12/2019 CO2 27 01/12/2019 Lab Results Component Value Date CK 160 01/08/2019 TROPONINT 0.05 (H) 01/08/2019 Intake/Output Summary (Last 24 hours) at 01/12/2019 1235 Last data filed at 01/12/2019 1100 Gross per 24 hour Intake 860 ml Output 1700 ml Net -840 ml Patient Vitals for the past 168 hrs: Weight 01/12/19 0453 35.1 kg (77 lb 6.1 oz) 01/11/19 0344 36.5 kg (80 lb 7.5 oz) 01/10/19 0555 37 kg (81 lb 9.1 oz) 01/09/19 0500 37.8 kg (83 lb 5.3 oz) 01/08/19 0602 37.2 kg (82 lb 0.2 oz) Evaluation/Plan: Complaining of lightheadedness with trips to the bathroom. Denies chest pain. No longer short of breath. Heart rate 60-70, blood pressure 1 40-1 72 systolic. Weight is down about 1.4 kg from admission, fluid balance over last 24 hours -1.7 L (-5.1 L for the admission). Creatinine is up at 3.46 (from 3.0), also hyponatremia at 127, and hypokalemia at 3.3 (will replete). Current antihypertensive regimen includes amlodipine 10 mg/day, clonidine 0.3 mg twice a day, and labetalol 400 mg twice a day. Clonidine and or labetalol may be contributing to her presyncope. Also, she appears to be over diuresed on 60 mg of torsemide twice daily. We will plan to decrease her torsemide to 40 mg daily. So far her nonischemic cardiomyopathy work-up is significant for an elevated ferritin as well as elevated light chains on her SPEP which are both of unclear significance at this point. Our plan is to complete a cardiac MR study to evaluate her new cardiomyopathy although, if that requires contrast it may not be possible at this point. Otherwise as per Naren Ruano. I am a credentialed acetylene burner at [facility] and I am currently the attending of record for the patient's admission. I certify that this patient meets or has met the criteria for inpatient treatment for their acute condition meeting a minimum of two midnights. Thomas Terrazas MD Mainor Doyle MD - 01/12/2019 9:31 AM EDT HYPERTENSION/ NEPHROLOGY PROGRESS NOTE PATIENT: Pretty Harmon : 1950 REASON FOR CONSULTATION: Consulted by cardiology for acute kidney injury on chronic kidney disease, hypertension management. HPI: 68 y.o. female with PMHx significant for stage IV CKD with a creatinine running in the 2.75 range, due to long-standing uncontrolled hypertension and renal ischemia due to renal artery stenosis, rightrenal angioplasty on August 2018, with normal flow in the left kidney, with uncontrolled blood pressuredifficult to control due to hypotension as well as significant elevation of blood pressure at other times, history of abdominal aortic aneurysm, history of congestive heart failure with flash pulmonaryedema, came to the hospital on 01/24/2019 because of significant shortness of breath. Nephrology was consulted for kush on ckd and management of hypertension. Subjective: Patient was seen and examined today making good urine, she is on Torsemide. Not on oxygen Had dizziness when she went to bathroom today. ROS: 4 point review of sytem was done, everything was negative except for what was mentioned above. MEDICATIONS: ??? torsemide 40 mg Oral Daily ??? cloNIDine 0.3 mg Oral BID ??? labetalol 400 mg Oral BID ??? levothyroxine 75 mcg Oral Daily ??? aspirin 81 mg Oral Daily ??? atorvastatin 20 mg Oral QPM ??? gabapentin 200 mg Oral Nightly ??? sodium chloride 0.9 % (flush) 5 mL Intravenous BID ??? pantoprazole 20 mg Oral Daily ??? amLODIPine 10 mg Oral Daily ??? magnesium oxide 400 mg Oral BID PHYSICAL EXAM: Last value Range last 24 hrs Temperature Temp: 37.2 ??C (99 ??F) Temp: [36.3 ??C (97.3 ??F)-37.2 ??C (99 ??F)] Heart Rate Heart Rate: 89 Heart Rate: [55-89] Blood Pressure BP: 166/66 BP: (111-172)/(52-90) Respiratory Rate Resp: 17 Resp: [16-18] SpO2 SpO2: 93 % SpO2: [93 %-98 %] Patient is awake alert did not seem to be in acute distress no jaundice or mucosa moist Neck- supple trachea central Chest- bilateral air entry present clear. CVS-S1-S2 present Abdomen-nontender nondistended, bowel sounds present., Abdominal bruit present. Extremities-peripheral pulses present, no significant edema Neuro-patient is awake alert, moving all 4 limbs, motor examination is grossly normal. STUDIES: Labs: CBC: Recent Labs 01/12/19 0544 01/11/19 0455 01/10/19 0051 WBC 11.8* 11.2* 11.5* HGB 12.3 11.2* 10.6* PLATELET 307 286 281 Chemistry: Recent Labs 01/12/19 0544 01/11/19 0455 01/10/19 1810 01/10/19 0051 01/08/19 0004 01/07/19 2159 01/04/19 1252 NA 127* 125* 127* 131* < > 131* 131* 133* K 3.3* 4.0 4.3 3.6 < > 4.2 Not Perf 3.6 CL 79* 84* 86* 89* < > 93* 92* 95* CO2 27 26 24 25 < > 20* 18* 21* BUN 64* 58* -- 61* < > 59* 61* 44* CREATININE 3.46* 3.01* -- 3.23* < > 3.42* 3.68* 3.11* GLUCOSE -- -- -- -- -- 121 121 114 < > = values in this interval not displayed. Recent Labs 01/12/19 0544 01/11/19 0455 01/10/19 1810 01/10/19 0051 01/09/19 1906 01/09/19 0234 01/04/19 1252 11/09/18 1226 09/03/18 0035 CALCIUM 9.7 9.1 -- 8.9 -- 8.9 < > 9.7 < > 9.5 < > 8.2* MAGNESIUM -- -- 0.75 -- 0.83 0.81 < > -- -- -- < > 0.95 PHOS -- -- -- -- -- -- -- 4.0 -- 4.2 -- 4.4 < > = values in this interval not displayed. LFT's: Recent Labs 01/07/19 2159 01/04/19 1252 10/03/18 0329 06/14/18 1022 BILITOT 0.7 -- <0.2* 0.4 BILIDIR Not Perf -- 0.1 -- ALBUMIN 4.1 3.8 3.4 3.9 ALKPHOS 118* -- 72 57 ALT 33* -- 13 11 AST Not Perf -- IMPRESSION/ RECOMMENDATIONS: 68 y.o. female with PMHx significant for stage IV CKD with a creatinine running in the 2.75 range, due to long-standing uncontrolled hypertension and renal ischemia due to renal artery stenosis, right renal angioplasty on August 2018, with normal flow in the left kidney, with uncontrolled blood pressure difficult to control due to hypotension as well as significant elevation of blood pressure at other times, admitted with congestive heart failure with reduced ejection fraction with an ejection fractionof 20 to 25% this time. Nephro consulted for acute kidney injury on chronic kidney disease . #Acute kidney injury on chronic kidney disease stage IV-most probably secondary to cardiorenal syndrome. Patient has chronic kidney disease secondary to hypertensive nephrosclerosis/ischemia due to renal artery stenosis. Her creatinine has gone up to 3.46 today from 3.01 yesterday ( Cr. 3.68 at the time of admission ) Hypertension-patient is currently on amlodipine 10 milligrams p.o. daily, clonidine 0.3 mg twice daily, labetalol 400 mg twice daily. Amlodipine was increased to amlodipine 10 mg. Primary team adjusting blood pressure medication. CHF with reduced EF- stress test is negative for reversible ischemia. Diuretic changed to torsemide 60 mg q daily. Uxdnrqugyvdg-ipbeqicbqkpg-ykyrjbkpt to congestive heart failure. Potassium today is 4. Bone mineral metabolic syndrome-calcium is 9.1 No recent phos levels. Anemia- s/p iron infusion on on 01/07/19 Dizziness- recommend checking orthostatic vitals. Recommendation: Since the pt is saturating well on room air and is not short of breath, recommend to decrease diuretics that her creatinine is trending up. Consider changing beta se to Carvedilol, metoprolol succinate or bisoprolol due to reduced EF. Thank you for the consult will follow the patient with you Seen and discussed with Dr. Vivek Negron MD 01/12/2019 Renal Attending: The patient was examined on hemodialysis together with the renal fellow and I agree with the above note which accurately reflects our findings and assessment. Mainor Doyle MD - 01/11/2019 7:32 PM EDT HYPERTENSION/ NEPHROLOGY PROGRESS NOTE PATIENT: Pretty Harmon : 1950 REASON FOR CONSULTATION: Consulted by cardiology for acute kidney injury on chronic kidney disease, hypertension management. HPI: 68 y.o. female with PMHx significant for stage IV CKD with a creatinine running in the 2.75 range, due to long-standing uncontrolled hypertension and renal ischemia due to renal artery stenosis, rightrenal angioplasty on August 2018, with normal flow in the left kidney, with uncontrolled blood pressuredifficult to control due to hypotension as well as significant elevation of blood pressure at other times, history of abdominal aortic aneurysm, history of congestive heart failure with flash pulmonaryedema, came to the hospital on 01/24/2019 because of significant shortness of breath. Nephrology was consulted for kush on ckd and management of hypertension. Subjective: Patient was seen and examined today she was lying comfortably on the bed still on oxygen 2 l by nasal canula, but did not have any chest pain or any significant difficulty in breathing. ROS: 4 point review of sytem was done, everything was negative except for what was mentioned above. MEDICATIONS: ??? cloNIDine 0.3 mg Oral BID ??? labetalol 400 mg Oral BID ??? torsemide 60 mg Oral Daily ??? levothyroxine 75 mcg Oral Daily ??? aspirin 81 mg Oral Daily ??? atorvastatin 20 mg Oral QPM ??? gabapentin 200 mg Oral Nightly ??? sodium chloride 0.9 % (flush) 5 mL Intravenous BID ??? pantoprazole 20 mg Oral Daily ??? amLODIPine 10 mg Oral Daily ??? magnesium oxide 400 mg Oral BID PHYSICAL EXAM: Last value Range last 24 hrs Temperature Temp: 36.3 ??C (97.3 ??F) Temp: [36.3 ??C (97.3 ??F)-36.8 ??C (98.2 ??F)] Heart Rate Heart Rate: 55 Heart Rate: [55] Blood Pressure BP: 116/56 BP: (116-157)/(56-92) Respiratory Rate Resp: 18 Resp: [17-18] SpO2 SpO2: 93 % SpO2: [86 %-97 %] Patient is awake alert did not seem to be in acute distress no jaundice or mucosa moist Neck- supple trachea central Chest- bilateral air entry present clear. CVS-S1-S2 present Abdomen-nontender nondistended, bowel sounds present., Abdominal bruit present. Extremities-peripheral pulses present, no significant edema Neuro-patient is awake alert, moving all 4 limbs, motor examination is grossly normal. STUDIES: Labs: CBC: Recent Labs 01/11/19 0455 01/10/19 0051 01/09/19 0234 WBC 11.2* 11.5* 12.4* HGB 11.2* 10.6* 10.6* PLATELET 286 281 271 Chemistry: Recent Labs 01/11/19 0455 01/10/19 1810 01/10/19 0051 01/09/19 0234 01/08/19 0004 01/07/19 2159 01/04/19 1252 NA 125* 127* 131* < > 130* < > 131* 131* 133* K 4.0 4.3 3.6 < > 3.3* < > 4.2 Not Perf 3.6 CL 84* 86* 89* < > 87* < > 93* 92* 95* CO2 26 24 25 < > 24 < > 20* 18* 21* BUN 58* -- 61* -- 66* -- 59* 61* 44* CREATININE 3.01* -- 3.23* -- 3.28* -- 3.42* 3.68* 3.11* GLUCOSE -- -- -- -- -- -- 121 121 114 < > = values in this interval not displayed. Recent Labs 01/11/19 0455 01/10/19 1810 01/10/19 0051 01/09/19 1906 01/09/19 0234 01/04/19 1252 11/09/18 1226 09/03/18 0035 CALCIUM 9.1 -- 8.9 -- 8.9 < > 9.7 < > 9.5 < > 8.2* MAGNESIUM -- 0.75 -- 0.83 0.81 < > -- -- -- < > 0.95 PHOS -- -- -- -- -- -- 4.0 -- 4.2 -- 4.4 < > = values in this interval not displayed. LFT's: Recent Labs 01/07/19 2159 01/04/19 1252 10/03/18 0329 06/14/18 1022 BILITOT 0.7 -- <0.2* 0.4 BILIDIR Not Perf -- 0.1 -- ALBUMIN 4.1 3.8 3.4 3.9 ALKPHOS 118* -- 72 57 ALT 33* -- 13 11 AST Not Perf -- IMPRESSION/ RECOMMENDATIONS: 68 y.o. female with PMHx significant for stage IV CKD with a creatinine running in the 2.75 range, due to long-standing uncontrolled hypertension and renal ischemia due to renal artery stenosis, right renal angioplasty on August 2018, with normal flow in the left kidney, with uncontrolled blood pressure difficult to control due to hypotension as well as significant elevation of blood pressure at other times, admitted with congestive heart failure with reduced ejection fraction with an ejection fractionof 20 to 25% this time. Nephro consulted for acute kidney injury on chronic kidney disease . #Acute kidney injury on chronic kidney disease stage IV-most probably secondary to cardiorenal syndrome. Patient has chronic kidney disease secondary to hypertensive nephrosclerosis/ischemia due to renal artery stenosis. Her creatinine is trending down, making good urine. Hypertension-patient is currently on amlodipine 10 milligrams p.o. daily, clonidine 0.3 mg twice daily, labetalol 400 mg twice daily. Amlodipine was increased to amlodipine 10 mg CHF with reduced EF- stress test is negative for reversible ischemia. Diuretic changed to torsemide 60 mg q daily. Recommendation: Recommend - transition labetalol to carvedilol 25 mg p.o. twice daily due to heart failure with reduced ejection fraction. Since the patient is on diuresis will not make major changes in her blood pressure medication currently since it has been adjusted recently. Continue PRN labetalol IV. Zbbjutotwltj-cyxlzzxuyclx-yhplabwnl to congestive heart failure. Potassium today is 4. Bone mineral metabolic syndrome-calcium is 9.1 No recent phos levels. Anemia- s/p iron infusion on on 01/07/19 Thank you for the consult will follow the patient with you Seen and discussed with Dr. Vivek Negrno MD 01/11/2019 Renal Attending: The patient was examined together with the renal fellow and I agree with the above note which accurately reflects our findings and assessment Greyson Jolly MD - 01/11/2019 9:37 AM EDT 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 / PA Responsible Attending: Greyson Jolly MD Reason for continued hospitalization: Evaluation and management of systolic heart failure Newly identified cardiomyopathy CKD stage IV Active Problems: Active Hospital Problems Diagnosis ??? Systolic HF (heart failure) ??? Chest pain ??? Hypertensive urgency ??? CKD (chronic kidney disease) stage 5, GFR less than 15 ml/min ??? Severe protein-calorie malnutrition Weight loss of 15.8% x 26 days from 47.4 kg (08/29) to 39.9 kg (10/04) and presents with lean muscle loss at clavicles and subcutaneous fat loss at triceps consistent with severe protein calorie malnutrition. ??? Renal artery stenosis ??? Abdominal aortic aneurysm (AAA) without rupture Resolved Hospital Problems No resolved problems to display. Interval History: No acute events noted overnight. Does report some cramping to her fingertips and feet this morning. Continues on high-dose IV Lasix drip. Discussed stopping IV Lasix drip transitioning to an oral diuretic later this afternoon, patient is in agreement with this plan. She is aware thatshe will have a nuclear stress test today. Review of Systems: Review of Systems Respiratory: Negative for shortness of breath (resolved). Cardiovascular: Negative for chest pain, palpitations and leg swelling. Gastrointestinal: Negative for abdominal distention and abdominal pain. Genitourinary: Negative for difficulty urinating. Neurological: Negative for dizziness, weakness and light-headedness. All other systems reviewed and are negative. Telemetry: Heart rate 60s, sinus rhythm Meds: Scheduled Meds: ??? cloNIDine 0.3 mg Oral BID ??? labetalol 400 mg Oral BID ??? torsemide 60 mg Oral Daily ??? levothyroxine 75 mcg Oral Daily ??? aspirin 81 mg Oral Daily ??? atorvastatin 20 mg Oral QPM ??? gabapentin 200 mg Oral Nightly ??? sodium chloride 0.9 % (flush) 5 mL Intravenous BID ??? pantoprazole 20 mg Oral Daily ??? amLODIPine 10 mg Oral Daily ??? magnesium oxide 400 mg Oral BID Continuous Infusions: PRN Meds:sodium chloride 0.9 % (flush), lidocaine, nitroGLYcerin, acetaminophen Physical Exam: Vital Signs: Last value Range last 24 hrs Temperature Temp: 36.3 ??C (97.3 ??F) Temp: [36.3 ??C (97.3 ??F)-36.8 ??C (98.2 ??F)] Heart Rate Heart Rate: 76 Heart Rate: -- Blood Pressure BP: 144/62 BP: (119-157)/(62-92) Respiratory Rate Resp: 18 Resp: [17-18] SpO2 SpO2: 94 % SpO2: [86 %-97 %] Intake/Output Summary (Last 24 hours) at 01/11/2019 1352 Last data filed at 01/11/2019 1202 Gross per 24 hour Intake 655.57 ml Output 3300 ml Net -2644.43 ml Patient Vitals for the past 168 hrs: Weight 01/11/19 0344 36.5 kg (80 lb 7.5 oz) 01/10/19 0555 37 kg (81 lb 9.1 oz) 01/09/19 0500 37.8 kg (83 lb 5.3 oz) 01/08/19 0602 37.2 kg (82 lb 0.2 oz) Physical Exam Constitutional: No distress. Underweight, Body mass index is 16.02 kg/m??. Cardiovascular: Normal rate, regular rhythm and normal heart sounds. Pulmonary/Chest: She has rales (mild at LLL). Abdominal: Soft. Musculoskeletal: Normal range of motion. She exhibits no edema. Neurological: She is alert. Skin: Skin is warm and dry. She is not diaphoretic. Psychiatric: She has a normal mood and affect. Nursing note and vitals reviewed. Lab Comments: Recent Labs 01/11/1945401/10/195001/09/19 0234 WBC 11.2* 11.5* 12.4* HGB 11.2* 10.6* 10.6* HCT 32.7* 31.2* 30.9* PLATELET 286 281 271 No results for input(s): INR in the last 168 hours. Recent Labs 01/11/1945401/10/19180901/10/191 01/09/19 0234 NA 125* 127* 131* < > 130* K 4.0 4.3 3.6 < > 3.3* CL 84* 86* 89* < > 87* CO2 26 24 25 < > 24 BUN 58* -- 61* -- 66* CREATININE 3.01* -- 3.23* -- 3.28* < > = values in this interval not displayed. Recent Labs 01/07/19 2159 AST Not Perf ALT 33* ALKPHOS 118* BILITOT 0.7 BILIDIR Not Perf Recent Labs 01/11/19 0455 01/10/19 1810 01/10/19 0051 01/09/19 1906 01/09/19 0234 CALCIUM 9.1 -- 8.9 -- 8.9 MAGNESIUM -- 0.75 -- 0.83 0.81 Recent Labs 01/08/19 1251 01/08/19 1002 01/08/19 0335 01/08/19 0004 CK 160 -- -- 231* TROPONINT 0.05* 0.05* 0.05* 0.05* Pertinent Radiographic/Diagnostic Results: I have independently visualized the following studies: ECG: sinus rhythm with unchanged slight std of lateral leads, unchanged inferior TWI from prior ECG,high voltage TTE 01/08/2019 SUMMARY: ?? 1. The left ventricular chamber [...] See remainder of report for additional findings. Nuclear stress test 01/11/2019: pending Assessment: Pretty Harmon is a 68 y.o. female with a past medical history of AAA, hypertension, CKD stage IV-V, bilateral renal artery stenosis status post renal artery bypass August 2018, hypothyroid who presented to [facility] in the setting of acute dyspnea and abdominal pain, and underwent ED-ED transfer dueto OSH provider concern for AAA rupture. Seen by vascular surgery and aneurysmal rupture ruled out (see vascular consult note (01/07) . Ultimately she was admitted to cardiology due in the setting of ADHF exacerbation and hypertensive urgency. Trop (+) but flat at 0.05x3. She denies any chest pain. CT of the chest showing vascular congestion with pleural effusion (R>L). Initiated on IVP diuretics, followed by lasix drip which was up-titrated to 20 mg/hr in setting of low urine output. Echocardiogram revealed significantly reduced LV function as noted above. BP has been labile, requiring further antihypertensive agents. Unfortunately this has been difficult to control in the setting of her YING. Plan for continued diuresis. Nephrology consulted and following. Plan for ischemic evaluation today with a nuclear stress test. Plan: Hypertensive Urgency - BP: (119-157)/(62-92) - trends over the last 24 hours - Labetalol increased to 400 mg BID, amlodipine 10 mg - Increase clonidine to 0.3 mg BID (had previously taken 0.1 mg BID at home PRN) - Will transition to oral diuretics today ?? Acute Systolic HF New CM, unclear if ischemic vs non-ischemic - Monitor intakes and outputs, daily weights, 2 gm sodium diet - Keep K greater than 4 mg/DL, MG greater than 1 mmol/L - Echo revealing newly reduced LVEF to 20-25% with diffuse wall motion abnormalities as above - Admit ProBNP >91471, repeat the same - Marceline to be approaching euvolemia with improved symptom management - Transition to oral diuretics today, will start this afternoon - Close monitoring of renal function, nephrology consulted - NIC lab panel pending - Consider HF team consult ?? NSTEMI, type I vs type II - cardiac enzymes remain flat - Stop Heparin gtt as she has received 48 hours of therapy, no additional chest pain - Continue ASA 81 mg daily (loaded in the ED) - Continued on labetalol, uptitrated - Atorvastatin 40 mg p.o. daily (increased from 20 mg p.o. daily) - SL nitro PRN, patient with no c/o of chest pain this admission - Await nuclear stress test, planned for 01/11 ?? 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 Kemp, creatinine 3.6 on admission from 2.9 last month, now 3.0 - Avoid nephrotoxic agents - Monitor kidney functions - Nephrology and vascular surgery consulted and following - Hx of YING with Renal artery bypass - renal duplex as well as repeat AAA duplex to be arranged outpatient per vascular Acute hyponatremia - initially though to be secondary to fluid overload, but worsening with diuresis - Level 125 today -Stop IV lasix drip, transition to torsemide later today - Follow levels daily Underweight - Body mass index is 15.72 kg/m??. - Suspect severe protein calorie malnutrition however albumin is normal - Nutrition consult placed - Renal boost supplementation - Patient denies weight change ?? Hypothyroidism - TSH remains elevated at 8.1-0-> 4.18, (level 8.83 this past September) - Free T3/T4 1.3, 1.74 respectively - Levothyroxine increased to 75 mg daily ?? DVT prophylaxis: stopped heparin drip, subq heparin q 12 hrs CODE STATUS: FULL CODE Discussed with MD Bertha Atkinson APRN Cardiovascular Medicine 01/11/2019 STAFF ADDENDUM Patient interviewed and examined. Medical record reviewed. I agree with the Intercurrent History Past Medical History Physical Exam Objective Data Assessment and Plan as detailed by Bertha Ruano APRN, with whom the patient was interviewed, examined, and discussed, with the following additions and/or exceptions. No longer with an oxygen requirement. Can ambulate around the unit without desaturation. Reports cramps in her fingers and toes. Still hypertensive. Hyponatremic. CR down to 3.02. Perfusion imaging stress test showing no infarct or ischemia. Laboratory evaluation ongoing. Considering whether or not to perform a CMR. Will stop her aggressive IV diuretic regimen and start on a moderate dose PO regimen. Will advance labetalol for better control of hypertension. Emily Randloph RD - 01/11/2019 9:34 AM EDT Nutrition Progress Note and Answer to Consult Pretty Harmon is a 68 y.o. female Reason for intervention: Consult - follow-up from nutrition note 01/08/19 Nutrition Recommendations: ?? Once medically ready for diet advance suggest resume 2 g Na diet without Renal diet restriction as her K level has not exceeded threshold during admission. ?? Nepro Supplements were being refused -dislikes milk ?? With encouragement, pt willing to re-try Nepro supplement in different flavor to optimize PO's due to St 5 CKD and PCM with 13% weight loss SEAT BUILDER ?? Small frequent meals--calorically dense--discussed with patient ?? Pt reports adherence to low sodium diet SEAT BUILDER ?? Consider appetite stimulant Patient Active Problem List Diagnosis Code ??? [...] renal failure, stage 4 (severe) N18.4, D63.1 Past Medical History: Diagnosis Date ??? AAA (abdominal aortic aneurysm) [id number] angiogram; 3.2 cm infrarenal ??? Constipation ??? Dyslipidemia ??? Hypertension ??? Insomnia ??? Peripheral vascular disease ??? Renal artery stenosis R; per 2010 angiogram Active Orders Diet NPO diet (Give Meds) Frequency: Effective Midnight Number of Occurrences: Until Specified Nourishments Adult diet Oral Supplements Nepro (Renal) Frequency: Effective Now Number of Occurrences: Until Specified Admit Weight: 37.2 kg Estimated body mass index is 15.72 kg/m?? as calculated from the following: Height as of 12/16/18: 152.4 cm (5'). Weight as of this encounter: 36.5 kg (80 lb 7.5 oz). 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 and notes adherence to low sodium diet SEAT BUILDER for fluid management of CHF Lab Results Component Value Date NA 125 (L) 01/11/2019 K 4.0 01/11/2019 CL 84 (L) 01/11/2019 CO2 26 01/11/2019 BUN 58 (H) 01/11/2019 CREATININE 3.01 (H) 01/11/2019 GLUCOSE 121 01/08/2019 MAGNESIUM 0.75 01/10/2019 CALCIUM 9.1 01/11/2019 PHOS 4.0 01/04/2019 AST Not Perf 01/07/2019 ALT 33 (H) 01/07/2019 ALKPHOS 118 (H) 01/07/2019 BILITOT 0.7 01/07/2019 BILIDIR Not Perf 01/07/2019 CRP <0.2 06/14/2018 Last Bowel Movement: 01/03/19(pt reports BM normally every 7-10 days) EMILY RANDOL[address] RD Beeper #: [id number] Greyson Jolly MD - 01/10/2019 11:52 AM EDT 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 / PA Responsible Attending: Greyson Jolly MD Reason for continued hospitalization: Evaluation and management of systolic heart failure Newly identified cardiomyopathy CKD stage IV Active Problems: Active Hospital Problems Diagnosis ??? Systolic HF (heart failure) ??? Chest pain ??? Hypertensive urgency ??? CKD (chronic kidney disease) stage 5, GFR less than 15 ml/min ??? Severe protein-calorie malnutrition Weight loss of 15.8% x 26 days from 47.4 kg (08/29) to 39.9 kg (10/04) and presents with lean muscle loss at clavicles and subcutaneous fat loss at triceps consistent with severe protein calorie malnutrition. ??? Renal artery stenosis ??? Abdominal aortic aneurysm (AAA) without rupture Resolved Hospital Problems No resolved problems to display. Interval History: No acute events noted overnight. He was net negative approximately 900 mL while continuing on high concentration Lasix at 20 mg/h. BP remains elevated with SBP in the 170s this morning. Increase labetalol to 300 mg 3 times daily. She reports she is feeling better today with less dyspnea. Review of Systems: Review of Systems Respiratory: Positive for shortness of breath (improving, still on supplemental O2). Cardiovascular: Negative for chest pain, palpitations and leg swelling. Gastrointestinal: Negative for abdominal distention and abdominal pain. Genitourinary: Negative for difficulty urinating. All other systems reviewed and are negative. Telemetry: SR 62-75 bpm Meds: Scheduled Meds: ??? potassium chloride 40 mEq Oral Once ??? potassium chloride 40 mEq Oral Once ??? cloNIDine 0.2 mg Oral BID ??? levothyroxine 75 mcg Oral Daily ??? aspirin 81 mg Oral Daily ??? atorvastatin 20 mg Oral QPM ??? gabapentin 200 mg Oral Nightly ??? sodium chloride 0.9 % (flush) 5 mL Intravenous BID ??? pantoprazole 20 mg Oral Daily ??? amLODIPine 10 mg Oral Daily ??? labetalol 300 mg Oral BID ??? magnesium oxide 400 mg Oral BID Continuous Infusions: ??? furosemide 20 mg/hr (01/09/19 1549) ??? heparin (porcine) 700 Units/hr (01/10/19 0126) PRN Meds:sodium chloride 0.9 % (flush), lidocaine, nitroGLYcerin, heparin (porcine) AND heparin (porcine), acetaminophen Physical Exam: Vital Signs: Last value Range last 24 hrs Temperature Temp: 36.6 ??C (97.9 ??F) Temp: [36.5 ??C (97.7 ??F)-37.4 ??C (99.3 ??F)] Heart Rate Heart Rate: 76 Heart Rate: [76-82] Blood Pressure BP: 172/77 BP: (145-172)/(65-90) Respiratory Rate Resp: 18 Resp: [16-18] SpO2 SpO2: 97 % SpO2: [89 %-97 %] Intake/Output Summary (Last 24 hours) at 01/10/2019 1152 Last data filed at 01/10/2019 1000 Gross per 24 hour Intake 2005.6 ml Output 3000 ml Net -994.4 ml Patient Vitals for the past 168 hrs: Weight 01/10/19 0555 37 kg (81 lb 9.1 oz) 01/09/19 0500 37.8 kg (83 lb 5.3 oz) 01/08/19 0602 37.2 kg (82 lb 0.2 oz) Physical Exam Constitutional: No distress. Underweight, Body mass index is 16.02 kg/m??. Cardiovascular: Normal rate, regular rhythm and normal heart sounds. Pulmonary/Chest: She has rales (b/l bases). Abdominal: Soft. Bowel sounds are normal. She exhibits no distension. Skin: Skin is warm and dry. She is not diaphoretic. Psychiatric: She has a normal mood and affect. Lab Comments: Recent Labs 01/10/195001/09/194 01/08/19 1002 WBC 11.5* 12.4* 10.0* HGB 10.6* 10.6* 11.6* HCT 31.2* 30.9* 34.9* PLATELET 281 271 271 No results for input(s): INR in the last 168 hours. Recent Labs 01/10/195001/09/19190501/09/19 0234 01/08/19 0004 NA 131* 128* 130* < > 131* K 3.6 3.9 3.3* < > 4.2 CL 89* 90* 87* < > 93* CO2 25 22 24 < > 20* BUN 61* -- 66* -- 59* CREATININE 3.23* -- 3.28* -- 3.42* < > = values in this interval not displayed. Recent Labs 01/07/19 2159 AST Not Perf ALT 33* ALKPHOS 118* BILITOT 0.7 BILIDIR Not Perf Recent Labs 01/10/195001/09/19 1906 01/09/19 0234 01/08/19 1251 01/08/19 0004 01/04/19 1252 CALCIUM 8.9 -- 8.9 -- 9.5 < > 9.7 MAGNESIUM -- 0.83 0.81 0.86 -- -- -- PHOS -- -- -- -- -- -- 4.0 < > = values in this interval not displayed. Recent Labs 01/08/19 1251 01/08/19 1002 01/08/19 0335 01/08/19 0004 CK 160 -- -- 231* TROPONINT 0.05* 0.05* 0.05* 0.05* Pertinent Radiographic/Diagnostic Results: I have independently visualized the following studies: ECG: NSR with std of lateral leads, unchanged from prior ECG, high voltage Echocardiogram 01/10/2019 SUMMARY: ?? 1. The left ventricular chamber [...] See remainder of report for additional findings. Assessment: Pretty Harmon is a 68 y.o. female with a past medical history of AAA, hypertension, CKD stage IV-V, bilateral renal artery stenosis status post renal artery bypass August 2018, hypothyroid who presented to [facility] in the setting of acute dyspnea and abdominal pain, and underwent ED-ED transfer dueto OSH provider concern for AAA rupture. Seen by vascular surgery and aneurysmal rupture ruled out (see vascular consult note (01/07) . Ultimately she was admitted to cardiology due in the setting of ADHF exacerbation and hypertensive urgency. Trop (+) but flat at 0.05x3. She denies any chest pain. CT of the chest showing vascular congestion with pleural effusion (R>L). Initiated on IVP diuretics, followed by lasix drip which was up-titrated to 15 mg/hr in setting of low urine output. Echocardiogram revealed significantly reduced LV function as noted above. BP has been labile, requiring further antihypertensive agents. Unfortunately this has been difficult to control in the setting of her YING. Plan for continued diuresis. Nephrology consulted and following. Plan for ischemic evaluation tomorrow. Plan: ?? Hypertensive Urgency - BP: (145-172)/(65-90) over the last 24 hours - Labetalol increased to 300 mg BID, amlodipine 10 mg - Continue clonidine 0.2 mg BID (had previously taken 0.1 mg BID at home PRN) - Continue IV lasix 20 mg/hr (high concentration) ?? Acute Systolic HF - Monitor intakes and outputs, daily weights, 2 gm sodium diet - Keep K greater than 4 mg/DL, MG greater than 1 mmol/L - Echo revealing newly reduced LVEF to 20-25% with diffuse wall motion abnormalities as above - Admit ProBNP >13265, repeat pending - Continue lasix 20 mg/hr high concentration dosing - Close monitoring of renal function, nephrology consulted - Admit weight 82 lbs, stable but with improvement in symptoms ?? NSTEMI, type I vs type II New CM, unclear if ischemic vs non-ischemic - Continue Heparin gtt as per the protocol for the time being - Continue ASA 81 mg p.o. Daily (loaded in the ED) - Continued on labetalol, uptitrated - Atorvastatin 40 mg p.o. daily (titrated from 20 mg p.o. daily) - SL nitro PRN, patient with no c/o of chest pain this admission - Trend cardiac enzymes - troponin I 0.05x3 - Await nuclear stress test, planned for 01/11 - NICM labs pending ?? 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 Kemp, creatinine 3.6 on admission from 2.9 last month, now 3.2 - Avoid nephrotoxic agents - Monitor kidney functions - Nephrology consulted and following - Hx of YING with Renal artery bypass, renal duplex today per vascular Underweight - Body mass index is 15.93 kg/m??. - Suspect severe protein calorie malnutrition however albumin is normal - Nutrition consult placed - Renal boost supplementation - Patient denies weight change ?? Hypothyroidism - TSH remains elevated at 8.1, unchanged from September (8.83) - Free T3/T4 pending - Levothyroxine increased to 75 mg daily ?? Diet: Renal diet, + Nepro, 2 grm sodium limitation with 1500 ml fluid restriction ?? DVT prophylaxis:heparin drip Discussed with MD Whitney Atkinson APRN Cardiovascular Medicine Pager [phone] 01/10/2019 STAFF ADDENDUM Patient interviewed and examined. Medical record reviewed. I agree with the Intercurrent History Past Medical History Physical Exam Objective Data Assessment and Plan as detailed by Jane RAE, with whom the patient was interviewed, examined, and discussed, with the following additions and/or exceptions. Ongoing diuresis with slowly improving SOB and resolved abdominal discomfort. Improving renal function. Remains hypertensive. Have increased her labetalol and clonidine. Will let Nephrology know she is inhospital. Labs sent for nonischemic CM evaluation. Plan toproceed with an imaging stress test tomorrow. Greyson Jolly MD - 01/09/2019 11:14 AM EDT 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 / PA Responsible Attending: Greyson Jolly MD Reason for continued hospitalization: Evaluation and management of systolic heart failure Newly identified cardiomyopathy Active Problems: Active Hospital Problems Diagnosis ??? Systolic HF (heart failure) ??? Chest pain ??? Hypertensive urgency ??? CKD (chronic kidney disease) stage 5, GFR less than 15 ml/min ??? Severe protein-calorie malnutrition Weight loss of 15.8% x 26 days from 47.4 kg (08/29) to 39.9 kg (10/04) and presents with lean muscle loss at clavicles and subcutaneous fat loss at triceps consistent with severe protein calorie malnutrition. ??? Renal artery stenosis ??? Abdominal aortic aneurysm (AAA) without rupture Resolved Hospital Problems No resolved problems to display. Interval History: Echocardiogram yesterday revealed newly reduced EF of 20-25% with diffuse WMAs; LVfunction now significantly reduced from prior echo August 2018 with LVEF of 50%and no WMAs. BP improvedyesterday to 140-150 systolic, however overnight trended back up to a peak of 216/72, despite up-titration of labetalol to 300 mg BID. In this setting will initiate clonidine 0.1 mg BID for further hypertensive control. From volemic perspective, patient was net negative 950 ml within 24 hours after receiving 200 mg IVP lasix in addition to a lasix drip which had been up-titrated to 15 mg/hr in the setting of low urine output. Creatinine/egfr stable at 3.3/14. Will continue on lasix today, transitionto high-concentration. Review of Systems: Review of Systems Constitutional: Positive for activity change and appetite change. Negative for unexpected weight change. Respiratory: Positive for shortness of breath. Cardiovascular: Negative for chest pain, palpitations and leg swelling. Gastrointestinal: Positive for abdominal distention. Negative for abdominal pain. Genitourinary: Reports good urine output Telemetry: Heart Rate: [52-78] SR Meds: Scheduled Meds: ??? cloNIDine 0.1 mg Oral BID ??? aspirin 81 mg Oral Daily ??? atorvastatin 20 mg Oral QPM ??? gabapentin 200 mg Oral Nightly ??? levothyroxine 50 mcg Oral Daily ??? sodium chloride 0.9 % (flush) 5 mL Intravenous BID ??? pantoprazole 20 mg Oral Daily ??? amLODIPine 10 mg Oral Daily ??? labetalol 300 mg Oral BID ??? magnesium oxide 400 mg Oral BID Continuous Infusions: ??? furosemide 15 mg/hr (01/09/19 1057) ??? heparin (porcine) 600 Units/hr (01/09/19 0311) PRN Meds:sodium chloride 0.9 % (flush), lidocaine, nitroGLYcerin, heparin (porcine) AND heparin (porcine), acetaminophen Physical Exam: Vital Signs: Last value Range last 24 hrs Temperature Temp: 37 ??C (98.6 ??F) Temp: [36.3 ??C (97.3 ??F)-37 ??C (98.6 ??F)] Heart Rate Heart Rate: 88 Heart Rate: [79-88] Blood Pressure BP: 171/83 BP: (150-216)/(70-90) Respiratory Rate Resp: 16 Resp: [16-18] SpO2 SpO2: 94 % SpO2: [82 %-94 %] Intake/Output Summary (Last 24 hours) at 01/09/2019 1114 Last data filed at 01/09/2019 1057 Gross per 24 hour Intake 9.11 ml Output 2050 ml Net -20.89 ml Patient Vitals for the past 168 hrs: Weight 01/09/19 0500 37.8 kg (83 lb 5.3 oz) 01/08/19 0602 37.2 kg (82 lb 0.2 oz) Physical Exam Constitutional: No distress. Underweight, Body mass index is 16.02 kg/m??. Cardiovascular: Normal rate, regular rhythm and normal heart sounds. Pulmonary/Chest: She has rales (b/l base-mid). Abdominal: Soft. Bowel sounds are normal. She exhibits distension (mild distention noted, likely fluid). Skin: Skin is warm and dry. She is not diaphoretic. Psychiatric: She has a normal mood and affect. Lab Comments: Recent Labs 01/09/1923301/08/19100101/07/192158 WBC 12.4* 10.0* 9.3 HGB 10.6* 11.6* 12.6 HCT 30.9* 34.9* 37.0 PLATELET 271 271 267 No results for input(s): INR in the last 168 hours. Recent Labs 01/09/19 0234 01/08/19 1251 01/08/19 0004 01/07/192158 NA 130* 130* 131* 131* K 3.3* 4.0 4.2 Not Perf CL 87* 90* 93* 92* CO2 24 18* 20* 18* BUN 66* -- 59* 61* CREATININE 3.28* -- 3.42* 3.68* Recent Labs 01/07/192158 AST Not Perf ALT 33* ALKPHOS 118* BILITOT 0.7 BILIDIR Not Perf Recent Labs 01/09/19 0234 01/08/19 1251 01/08/19 0004 01/07/19215801/04/191251 CALCIUM 8.9 -- 9.5 9.4 9.7 MAGNESIUM 0.81 0.86 -- -- -- PHOS -- -- -- -- 4.0 Recent Labs 01/08/19 1251 01/08/19 1002 01/08/19 0335 01/08/19 0004 CK 160 -- -- 231* TROPONINT 0.05* 0.05* 0.05* 0.05* Pertinent Radiographic/Diagnostic Results: I have independently visualized the following studies: ECG: NSR with std of lateral leads, unchanged from prior ECG, high voltage Echocardiogram 01/09/2019 SUMMARY: ?? 1. The left ventricular chamber [...] See remainder of report for additional findings. Assessment: Pretty Harmon is a 68 y.o. female with a past medical history of AAA, hypertension, CKD stage V, bilateral renal artery stenosis status post renal artery bypass August 2018, hypothyroid who presented to [facility] in the setting of acute dyspnea and abdominal pain, and underwent ED-ED transfer due toOSH provider concern for AAA rupture. Seen by vascular surgery and aneurysmal rupture ruled out (seevascular consult note (01/07) . Ultimately she was admitted to cardiology due in the setting of ADHF exacerbation and hypertensive urgency. Trop (+) but flat at 0.05x3. She denies any chest pain. CT of the chest showing vascular congestion with pleural effusion (R>L). Initiated on IVP diuretics, followed by lasix drip which was up-titrated to 15 mg/hr in setting of low urine output. Echocardiogram revealed significantly reduced LV function as noted above. BP has been labile, requiring further antihypertensive agents. Unfortunately this has been difficult to control in the setting of her YING. Plan for continued diuresis and ischemic evaluation when BP is better controlled. Plan: ?? Hypertensive Urgency - BP: (150-216)/(70-90) over the last 24 hours - Labetalol increased to 300 mg BID, amlodipine 10 mg - Initiate clonidine 0.1 mg BID (had previously taken at home PRN) - Continue IV lasix 15 mg/hr (high concentration), IVP lasix PRN pending urine output ?? Acute Systolic HF - Monitor intakes and outputs, daily weights, 2 gm sodium diet - Keep K greater than 4 mg/DL, MG greater than 1 mmol/L - Echo revealing newly reduced LVEF to 20-25% with diffuse wall motion abnormalities as above - ProBNP >67005 - Given 200 mg IVP lasix yesterday with lasix drip at 15/hr, change formulation to high concentration dosing - Close monitoring of kidney function - Admit weight 82 lbs, stable overnight ?? NSTEMI, type I vs type II New CM, unclear if ischemic vs non-ischemic - Most likely demand ischemia - Continue Heparin gtt as per the protocol for the time being - Continue ASA 81 mg p.o. Daily (loaded in the ED) - Continued on labetalol (home medication), uptitrated - Atorvastatin 40 mg p.o. daily (titrated from 20 mg p.o. daily) - SL nitro PRN, patient with no c/o of chest pain this admission - Trend cardiac enzymes - troponin I 0.05x3 - Await nuclear stress test when BP better controlled - NICM lab panel pending ?? CKD V - Followed by Dr. Kemp, creatinine 3.4 on admission from 2.9 last month, stable - Avoid nephrotoxic agents - Monitor kidney functions - Anticipate nephrology consult thursday Severe Protein Calorie Malnutrition - Nutrition consult placed - Renal boost supplementation - Patient denies weight change ?? Hypothyroidism - TSH remains elevated at 8.1, unchanged from September (8.83) - Free T3/T4 pending - Continue with home dose levothyroxine until free t3/t4 results, adjust dose accordingly ?? Diet: Renal diet, + Nepro, 2 grm sodium limitation with 1500 ml fluid restriction ?? DVT prophylaxis:heparin drip Discussed with MD Whitney Atkinson APRN Cardiovascular Medicine Pager [phone] 01/09/2019 STAFF ADDENDUM Patient interviewed and examined. Medical record reviewed. I agree with the Intercurrent History Past Medical History Physical Exam Objective Data Assessment and Plan as detailed by Jane RAE, with whom the patient was interviewed, examined, and discussed, with the following additions and/or exceptions. Stable clinical course. Reasonable diuresis with decreased weight without any concerning increase in CR. Remains hypertensive. I agree with starting 0.1 mg clonidine BID. Would initiate evaluation for causes of a nonischemic cardiomyopathy. Would hold on her perfusion imaging stress test until we have achieved more diuresis. I agree with letting her head greenskeeper know she is hospitalized and why. Whitney Kaplan, [facility] TECH - 01/08/2019 1:39 PM EDT 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 / PA Responsible Attending: Greyson Jolly MD Reason for continued hospitalization: Evaluation and management of systolic heart failure Active Problems: Active Hospital Problems Diagnosis ??? Systolic HF (heart failure) ??? Chest pain ??? Hypertensive urgency ??? CKD (chronic kidney disease) stage 5, GFR less than 15 ml/min ??? Severe protein-calorie malnutrition Weight loss of 15.8% x 26 days from 47.4 kg (08/29) to 39.9 kg (10/04) and presents with lean muscle loss at clavicles and subcutaneous fat loss at triceps consistent with severe protein calorie malnutrition. ??? Renal artery stenosis ??? Abdominal aortic aneurysm (AAA) without rupture Resolved Hospital Problems No resolved problems to display. Interval History: Admitted overnight in the setting of new onset dyspnea. ProBNP elevated at >06122. Echocardiogram done this morning with newly reduced EF of 20-25% with diffuse WMAs; LV function now significantly reduced from prior echo August 2018 with LVEF of 50%and no WMAs. BP notably hypertensive on admission with SBP 180-190 systolic. Improved now with additional IV labetalol and hydralazine. Will continue to titrate anti-hypertensive medications. Review of Systems: Review of Systems Constitutional: Positive for activity change and appetite change. Negative for unexpected weight change. Respiratory: Positive for shortness of breath. Cardiovascular: Negative for chest pain, palpitations and leg swelling. Gastrointestinal: Positive for abdominal distention. Negative for abdominal pain. Telemetry: Heart Rate: [72-86] SR Meds: Scheduled Meds: ??? aspirin 81 mg Oral Daily ??? atorvastatin 20 mg Oral QPM ??? gabapentin 200 mg Oral Nightly ??? levothyroxine 50 mcg Oral Daily ??? sodium chloride 0.9 % (flush) 5 mL Intravenous BID ??? pantoprazole 20 mg Oral Daily ??? [START ON 01/09/2019] amLODIPine 10 mg Oral Daily ??? [START ON 01/09/2019] labetalol 300 mg Oral BID Continuous Infusions: ??? heparin (porcine) 500 Units/hr (01/08/19 1344) ??? furosemide PRN Meds:sodium chloride 0.9 % (flush), lidocaine, nitroGLYcerin, heparin (porcine) AND heparin (porcine), acetaminophen Physical Exam: Vital Signs: Last value Range last 24 hrs Temperature Temp: 36.4 ??C (97.5 ??F) Temp: [36.4 ??C (97.5 ??F)-36.6 ??C (97.9 ??F)] Heart Rate Heart Rate: 83 Heart Rate: [72-86] Blood Pressure BP: 150/70 BP: (145-193)/(69-113) Respiratory Rate Resp: 17 Resp: [9-18] SpO2 SpO2: 90 % SpO2: [87 %-97 %] Intake/Output Summary (Last 24 hours) at 01/08/2019 1401 Last data filed at 01/08/2019 1202 Gross per 24 hour Intake -- Output 450 ml Net -450 ml Patient Vitals for the past 168 hrs: Weight 01/08/19 0602 37.2 kg (82 lb 0.2 oz) Physical Exam Constitutional: No distress. Underweight, Body mass index is 16.02 kg/m??. Cardiovascular: Normal rate, regular rhythm and normal heart sounds. Pulmonary/Chest: She has rales (b/l base-mid). Abdominal: Soft. Bowel sounds are normal. She exhibits distension (mild distention noted, likely fluid). Skin: Skin is warm and dry. She is not diaphoretic. Psychiatric: She has a normal mood and affect. Lab Comments: Recent Labs 01/08/19 1002 01/07/19215801/04/19 1252 WBC 10.0* 9.3 10.2* HGB 11.6* 12.6 11.2* HCT 34.9* 37.0 32.4* PLATELET 271 267 249 No results for input(s): INR in the last 168 hours. Recent Labs 01/08/19 0004 01/07/19215801/04/19 1252 NA 131* 131* 133* K 4.2 Not Perf 3.6 CL 93* 92* 95* CO2 20* 18* 21* BUN 59* 61* 44* CREATININE 3.42* 3.68* 3.11* Recent Labs 01/07/199 AST Not Perf ALT 33* ALKPHOS 118* BILITOT 0.7 BILIDIR Not Perf Recent Labs 01/08/19 0004 01/07/19 21501/04/19 1252 CALCIUM 9.5 9.4 9.7 PHOS -- -- 4.0 Recent Labs 01/08/19 1251 01/08/19 1002 01/08/19 0335 01/08/19 0004 CK -- -- -- 231* TROPONINT 0.05* 0.05* 0.05* 0.05* Pertinent Radiographic/Diagnostic Results: I have independently visualized the following studies: ECG: NSR with std of lateral leads, unchanged from prior ECG, high voltage Echocardiogram 01/08/2019 SUMMARY: ?? 1. The left ventricular chamber [...] See remainder of report for additional findings. Assessment: Pretty Harmon is a 68 y.o. female with a past medical history of AAA, hypertension, CKD stage V, bilateral renal artery stenosis status post renal artery bypass August 2018, hypothyroid who presented to [facility] in the setting of acute dyspnea and abdominal pain, and underwent ED-ED transfer due toOSH provider concern for AAA rupture. Seen by vascular surgery and aneurysmal rupture ruled out (seevascular consult note (01/07) . Ultimately she was admitted to cardiology due in the setting of ADHF exacerbation and hypertensive urgency. Trop (+) but flat at 0.05x3. She denies any chest pain. CT of the chest showing vascular congestion with pleural effusion (R>L). Initiated on IVP diuretics, followed by lasix drip which will be up-titrated pending outputs. Antihypertensive medications adjusted for optimization of blood pressure. Echocardiogram today reveals newly reduced LV function as noted above. Plan for diuresis and ischemic evaluation when she is euvolemic, likely Thursday. ?? Plan: ?? Hypertensive Urgency - Labetalol increased to 300 mg BID - Was recently up-titrated to 10 mg daily at home (first dose this past Thursday), continue on 10 mg daily - Takes clonidine 0.1 mg PO TID PRN for BP > 180 as home medication - IVP hydralazine and labetalol with good response, titrate PO medications to establish new BP regimen - IVP lasix + drip, will require addition of PO diuretics when no longer on drip ?? Acute Systolic HF - Monitor intakes and outputs, daily weights, 2 gm sodium diet - Keep K greater than 4 mg/DL, MG greater than 1 mmol/L - Echo revealing newly reduced LVEF to 20-25% with diffuse wall motion abnormalities as above - ProBNP >31960 - IVP lasix 40 mg x2, initiate lasix drip 5 mg/hr, up-titrate as needed - Close monitoring of kidney function - Admit weight 82 lbs ?? NSTEMI, likely type II - Most likely demand ischemia - Continue Heparin gtt as per the protocol for the time being - Continue ASA 81 mg p.o. Daily (loaded in the ED) - Continued on labetalol (home medication), uptitrated - Atorvastatin 40 mg p.o. daily (titrated from 20 mg p.o. daily) - SL nitro PRN, patient with no c/o of chest pain this admission - Trend cardiac enzymes - troponin I 0.05x3 - Pharmacologic nuclear stress test prior to discharge ?? CKD V - Followed by Dr. Kemp, creatinine 3.4 from 2.9 last month - Avoid nephrotoxic agents - Monitor kidney functions - Consider nephrology consultation for the need of dialysis if not responsive to IV diuretics. Severe Protein Calorie Malnutrition - Nutrition consult placed - Renal boost supplementation - Patient denies weight change ?? Hypothyroidism - Check TSH, results pending, noted to be previously elevated in September to - Continue with levothyroxine 50 mcg ?? Diet: Renal diet, + Nepro, 2 grm sodium limitation with 1500 ml fluid restriction ?? DVT prophylaxis:heparin drip Discussed with MD Whitney Atkinson [facility] Cardiovascular Medicine Pager [phone] 01/08/2019 documented in this encounter H&P Notes Konrad Melissa MD - 01/08/2019 4:34 AM EDT Cardiology History and Physical Patient Name: Pretty Harmon Date of : 1950 Age: 68 y.o. Hospital Admit Date: 01/07/2019 Inpatient Attending: Rashaun Gates MD PCP: Sanjuanita Lee MD Presenting Diagnosis/Chief Complaint: Chest/Abdominal Pain Active Problem List: Active Hospital Problems Diagnosis ??? Chest pain Resolved Hospital Problems No resolved problems to display. History of Present Illness: Ms. Pretty Harmon is a 68 yo F with PMH of AAA, HTN, CKD V, b/l YING s/p renal artery bypass on 08/2018,hypothyroidism and chronic resolved hepatitis B cleared with theraphy who was transferred from [facility] to [facility] ED for evaluation of suspected AAA rupture. The patient presented to the [facility] ED yesterday with c/o progressively worsening SOB over the last few months more prominent on exertion while walking uphill. As per the patient, she had been evaluated by her Nephrology at [facility] on Thursday and found to be hypertensive and medication adjustment was done. However she does not remember the plan on her medication regimen (No recent Nephrology note found in the system). She may have missed a few medication for the last few weeks. She is following a health/low tin diet. After she saw her [employer], she stated that BP readings have been getting better. She was at the infusion center yesterday for iron infusion that was switched from oral iron supp due to stomach discomfort. After having her iv iron, her sob remarkably worsened and she was sent to the ED via ambulance. Along her sob, [...] in July this year that was unremarkable. She was started on Zantac 150 mg BID by PCP due to ongoing abdominal symptoms. Denied having nausea, vomiting,fever, chills, orthopnea, pnd, leg swelling, calf tenderness. In [facility] ED, her BP: 180's/100's, HR: 70, Spo2: low 90s on 3L NC. On exam Presenting EKG showed NSR, LVH voltage criteria and STD on inferolateral leads but unchanged from September 2018. A non-con CT chest/abdomen done at [facility] that showed Asc aor 3.5cm, abd aneurysm 3.9 cm w/o Dissection (but not ruled out completely due to the lack of contrast). Troponin I positive at OSH 0.17, 0.22, then 0.05 and proBNP >35K. BUN/Cre 59/3.42 here at [facility] and remained steady. In [facility] ED bedside Echo reportedly with new WMA's. Fast Bedside US showed no evidence of dissection. Vascular teamstrongly felt that acute dissection of AAA highly unlikely. The patient received ASA 324 mg po, IVP Labetalol 20 mg x2 for BP control. Therefore, given ongoing chest and abdominal pain, elevated Troponin level and apparently severely reduced LVEF 30% from 54% on August 2018, Cardiology consultation was called for admission with a diagnosis of Hypertensive emergency and NSTEMI. Past Medical History: Past Medical History: Diagnosis Date ??? AAA (abdominal aortic aneurysm) [id number] angiogram; 3.2 cm infrarenal ??? Constipation ??? Dyslipidemia ??? Hypertension ??? Insomnia ??? Peripheral vascular disease ??? Renal artery stenosis R; per 2010 angiogram Previous Diagnostics: TTE (08/30/2018) 1. Mild concentric left ventricular hypertrophy is observed. There is normal global left ventricular systolic function. The quantitative left ventricular ejection fraction by biplane Whitley's method is 54%. There are no left ventricular segmental wall motion abnormalities. 2. Doppler assessment is consistent with elevated left sided filling pressure. 3. Right ventricular chamber size, wall thickness, and systolic function are within normal limits. 4. There is no hemodynamically significant valve disease. 5. See remainder of report for additional findings. Renal Artery Duplex (2018) Interpretation: RIGHT: Patent iliac to renal artery bypass [...] Mural thrombus noted through the aneurysm sac. Previous exam was limited, the graft was not visualized. Surgical History/Problems: Past Surgical History: Procedure Laterality Date ??? HYSTERECTOMY ? ? PRO CATHETER 1ST ORDER W/WO ART PUNCT/FLUORO/S&I BILATERAL Bilateral 09/01/[address] (FIRST-ORDER), MAIN RENAL ART & ANY ACC, W/S&I; ANDREY (WRVU 6.99) performedby Greyson Chen MD at [facility] MAIN OR ??? PRO UPPER GI ENDOSCOPY, DIAGNOSTIC 01/20/2014 EGD, UPPER GI ENDOSCOPY performed by Corby Cano MD at [facility] ENDOSCOPY ??? PRO UPPER GI ENDOSCOPY, DIAGNOSTIC N/A 07/28/2017 EGD, UPPER GI ENDOSCOPY performed by Snow Liao MD at [facility] ENDOSCOPY ??? PRO VEIN BYPASS GRAFT, AORTOILIOFEMORAL N/A 09/07/2018 @BYPASS GRAFT, AORTOILIAC W\ VEIN CONDUIT (WRVU 41.88) performed by Unique Moody MD at [facility] MAIN OR Significant Family History: Family History Problem Relation Age of Onset ??? Hypertension Mother ??? Cervical Cancer Mother ??? Chronic Obstructive Pulmonary Disease Father ??? Hypertension Sister Social History: Social History Socioeconomic History ??? Marital status: Spouse name: Not on file ??? Number of children: Not on file ??? Years of education: Not on file ??? Highest education level: Not on file Occupational History ??? Not on file Social Needs ??? Financial resource strain: Not on file ??? Food insecurity: Worry: Not on file Inability: Not on file ??? Transportation needs: Medical: Not on file Non-medical: Not on file Tobacco Use ??? Smoking status: Former Smoker Packs/day: 0.50 ??? Smokeless tobacco: Never Used ??? Tobacco comment: smoked for ~45 years up to 1 ppd at [place], quit ~1999 Substance and Sexual Activity ??? Alcohol use: Yes Comment: a few glasses of wine, rarely 4 times a year ??? Drug use: No ??? Sexual activity: Yes Partners: Male Lifestyle ??? Physical activity: Days per week: Not on file Minutes per session: Not on file ??? Stress: Not on file Relationships ??? Social connections: Talks on phone: Not on file Gets together: Not on file Attends christianity service: Not on file Active member of club or organization: Not on file Attends meetings of clubs or organizations: Not on file Relationship status: Not on file ??? Intimate partner violence: Fear of current or ex partner: Not [...] Rodolfo of 50 years. 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 Hoping to retire 11/2018 and travel throughout [facility] and [place] with Rodolfo. No history of heavy etoh use 2 children healthy REVIEW OF SYSTEMS: General ROS: No fatigue or weakness. Psychological: no anxiety / Depression Ophthalmic: No blurred vision or watery or red eyes. ENT: Negative for ear discharge or running nose or cold or throat swelling. Allergy: negative for itchy/watery eyes Heme: Negative for bleeding, bruising, fatigue, jaundice, night sweats Endocrine: negative for polydipsia/polyuria/ heat intolerance Respiratory: As in HPI CVS: As in HPI GI: No abd pain, change in bowel habits, or black or bloody stools Genitourinary: No dysuria, trouble voiding, or hematuria MSK: negative for joint pain, joint stiffness or joint swelling Neurological: No TIA or stroke symptoms Medications: Medications Prior to Admission Medication Sig Dispense Refill Last Dose ??? ranitidine (ZANTAC) 150 mg Tablet Take 150 mg by mouth 2 times daily. 01/08/2019 at Unknown time ??? furosemide (LASIX) 20 mg Tablet Take 20 mg by mouth 2 times daily. 01/08/2019 at Unknown time ??? labetalol (NORMODYNE) 200 mg Tablet Take 2 tablets by mouth daily. 270 tablet 3 01/08/2019 at Unknown time ??? isosorbide dinitrate (ISORDIL) 30 mg Tablet Take 90 mg by mouth daily. 01/08/2019 at Unknown time ??? gabapentin (NEURONTIN) 100 mg Capsule Take 200 mg by mouth nightly. 01/08/2019 at Unknown time ??? amLODIPine (NORVASC) 2.5 mg Tablet Take 1 tablet by mouth daily. 90 tablet 3 01/08/2019 at Unknown time ??? atorvastatin (LIPITOR) 20 mg Tablet Take 1 tablet by mouth every evening. 90 tablet 3 01/08/2019 at Unknown time ??? levothyroxine (SYNTHROID) 25 mcg Tablet Take 50 mcg by mouth daily. 01/08/2019 at Unknown time ??? aspirin 81 mg Tablet, Delayed Release (E.C.) Take 81 mg by mouth daily. 01/08/2019 at Unknown time ??? furosemide (LASIX) 40 mg Tablet Take 40 mg by mouth as needed. Unknown at Unknown time ??? cloNIDine (CATAPRES) 0.1 mg Tablet Take 1 tablet by mouth every 8 hours as needed (Please take 1tablet, if systolic blood pressure is >200). 30 tablet 3 Unknown at Unknown time ??? acetaminophen (TYLENOL) 500 mg Tablet Take 1 tablet by mouth every 6 hours. 30 tablet 1 Unknown at Unknown time Please review the medication list once her arrives in the morning. She can not confirm the list. Allergies: Allergies Allergen Reactions ??? Lisinopril Rise in creatinine PHYSICAL EXAM: Last set of vital signs: BP (!) 176/92 Pulse 82 Resp 14 Wt 37.2 kg (82 lb 0.2 oz) SpO2 95% BMI 16.02 kg/m?? Gen/Constitutional: Frail looking lady, mildly dyspneic and using accessory muscles. HEENT: LEANN, EOMI, No conjunctival pallor or scleral icterus Cardiac/CVS: No tenderness. RRR. S1 S2 present and normal. No murmurs. (+) elevated JVP, 12 cmH2O at45 degree angle. Pulm/Chest: Diminished lung sounds bilaterally. R>L Abd/GI: No tenderness, not distended, soft, BS present and normoactive, no organomegaly. No bruits over the epigastrium. Musculoskeletal: No edema . Pulses palpable,2+ UE/LE b/l. no calf tenderness Neuro/HAND LOOM WEAVER: AAO x 3, No evident deficits Skin/Integumentary: No rash Diagnostics: EKG: NSR, STD (down sloping) in the inferolateral leads. LVH voltage criteria. Unchanged compared tothe EKG in October 2018. Chest/Abd CT without contrast at [facility] Interstitial pulmonary edema with bilateral pleural effusion. No interval change in mediastinal adenopathy. AAA 3.9 cm (Larger than prior). Small 1.5 cm pseudoaneurysm distally. Early rupture can not be excluded. Small amount of fluid in the abdomen and pelvis. Mild thickening of the gallbladder wall with several gallbladder stones. LABS: Recent Results (from the past 24 hour(s)) Basic Metabolic Panel (non-fasting) Result Value Ref Range Glucose Lvl 121 65 - 199 mg/dL BUN 61 (H) 8 - 18 mg/dL Creatinine 3.68 (H) 0.70 - 1.20 mg/dL Sodium 131 (L) 135 - 145 mmol/L Potassium Not Perf 3.5 - 5.0 Chloride 92 (L) 98 - 107 mmol/L CO2 18 (L) 22 - 31 mmol/L Anion Gap 21 (H) 5 - 15 mmol/L Calcium 9.4 8.5 - 10.5 mg/dL eGFR 12 (L) >=60 mL/min/1.73 m?? eGFR 14 (L) >=60 mL/min/1.73 m?? Troponin Result Value Ref Range Troponin-T Not Perf 0.00 - 0.00 Hemogram Result Value Ref Range WBC 9.3 4.0 - 9.5 x10(3)/mcL RBC 4.12 4.00 - 5.21 x10(6)/mcL Hemoglobin 12.6 11.7 - 15.5 gm/dL Hematocrit 37.0 35.7 - 45.8 % MCV 89.8 82.6 - 94.4 fL MCH 30.6 27.1 - 32.0 pg MCHC 34.1 31.7 - 35.0 gm/dL Platelets 267 145 - 357 x10(3)/mcL RDWSD 48.9 (H) 37.0 - 46.0 fL RDWCV 15.2 (H) 11.5 - 14.1 % MPV 11.4 7.6 - 12.9 fL nRBC % Auto 0.0 % nRBC Abs Auto 0.000 0.000 - 0.000 x10(3)/mcL Differential, Automated Result Value Ref Range Neutrophils % 78.0 % Neutr Abs (ANC) 7.23 (H) 1.70 - 6.10 x10(3)/mcL Lymphocytes % 11.1 % Lymphocytes Abs 1.0 0.9 - 3.2 x10(3)/mcL Monocytes % 7.1 % Monocyte Abs 0.7 0.3 - 0.9 x10(3)/mcL Eosinophils % 1.9 % Eosinophils Abs 0.2 0.0 - 0.4 x10(3)/mcL Basophils % 0.9 % Basophils Abs 0.1 0.0 - 0.1 x10(3)/mcL Immature Gran % 1.00 % Blanca Gran Abs 0.09 (H) 0.00 - 0.04 x10(3)/mcL Blue Tube HOLD Result Value Ref Range Blue Hold Sample in lab. Hepatic Function Panel Result Value Ref Range Total Protein 7.4 6.1 - 8.0 gm/dL Albumin 4.1 3.2 - 5.2 gm/dL AST Not Perf 0 - 30 ALT 33 (H) 0 - 30 unit/L Alk Phos 118 (H) 35 - 105 unit/L Total Bilirubin 0.7 0.2 - 1.3 mg/dL Bili, Direct Not Perf 0.0 - 0.3 Lipase Result Value Ref Range Lipase 27 0 - 60 unit/L Basic Metabolic Panel (non-fasting) Result Value Ref Range Glucose Lvl 121 65 - 199 mg/dL BUN 59 (H) 8 - 18 mg/dL Creatinine 3.42 (H) 0.70 - 1.20 mg/dL Sodium 131 (L) 135 - 145 mmol/L Potassium 4.2 3.5 - 5.0 mmol/L Chloride 93 (L) 98 - 107 mmol/L CO2 20 (L) 22 - 31 mmol/L Anion Gap 18 (H) 5 - 15 mmol/L Calcium 9.5 8.5 - 10.5 mg/dL eGFR 13 (L) >=60 mL/min/1.73 m?? eGFR 15 (L) >=60 mL/min/1.73 m?? Troponin Result Value Ref Range Troponin-T 0.05 (H) 0.00 - 0.00 ng/mL Blue Tube HOLD Result Value Ref Range Blue Hold Sample in lab. Gold Tube HOLD Result Value Ref Range Gold Hold Sample in lab. Lavender Tube HOLD Result Value Ref Range Lavender Hold Sample in lab. CK Result Value Ref Range CK, Total 231 (H) 0 - 160 unit/L pro-Brain Natriuretic Peptide Result Value Ref Range ProBNP >35,000 (H) <=125 pg/mL Troponin Result Value Ref Range Troponin-T 0.05 (H) 0.00 - 0.00 ng/mL A&P: Ms. Pretty Harmon is a 68 yo F with PMH of AAA, HTN, CKD V, b/l YING s/p renal artery bypass on 08/2018,hypothyroidism, who was transferred from [facility] to [facility] for evaluation of suspected AAA rupture. Acute aortic syndrome was ruled out in the ED by the ED and vascular team. EKG showed old STD in the inferolateral leads in the setting of LVH. Trop (+) but remained steady at 0.05. It seems that she is in volume overload based on exam, elevated proBNP, CT of the chest showing vascular congestion with pleural effusion (R>L). Overall, she will be admitted with hypertensive emergency and volume overload. She is more likely to need urgent Nephrology consultation if not responsive to diuretics and elevated Trop likely from demand ischemia but given her risk factors, I would pursue with NST prior to discharge. Hypertensive Emergency: Combination of medication non compliance, CKDV and volume overload. AAA rupture ruled out in the ED (Given bed side US and Vascular team evaluation thought unlikely). IVP Lasix 40 mg once Consider NTG drip if not responsive to diuretics Labetalol 200 mg p.o. 3 times daily (titrated from 400 mg p.o.) Amlodipine 2.5 mg p.o. daily (home meds). Clonidine 0.1 mg p.o. 3 times daily as needed (home meds) Monitor BP closely. ADHF Exacerbation: Likely systolic based on new drop in LVEF on bedside US. Continue with diuretics Monitor intakes and outputs Daily weight changes Keep K greater than 4 mg/DL, MG greater than 2 mg/DL. [place] Formal TTE a.m. NSTEMI: Most likely type II from oxygen supply/demand mismatch in setting of CKD stage V. However given her risk factors, she is more likely to have a pharmacological stress test prior to discharge. Heparin gtt as per the protocol for the time being ASA 81 mg p.o. Daily (loaded in the ED) Continue with beta-blockers Atorvastatin 40 mg p.o. daily (titrated from 20 mg p.o. daily) NTG as needed EKG PRN Troponin cycling (1 more if remained steady at 0.05). Telemetry monitoring CKD V: Creatinine level 3.4 up from 2.9 in November 2018. Avoid nephrotoxic agents Monitor kidney functions Consider nephrology consultation for the need of dialysis if not responsive to IV diuretics. Hypothyroidism: Continue with levothyroxine Diet: HH diet DVT prophylaxis: Already on therapeutic heparin drip CODE STATUS: Full code Konrad Melissa MD Cardiology hospitalist Provider #: [id number] 01/08/2019 documented in this encounter ED Notes Louisa Spivey RN - 01/08/2019 5:13 AM EDT Patient sleeping on stretcher with no apparent distress noted. Respirations even and unlabored. VSS.Call carmona in reach. Louisa Spivey RN - 01/08/2019 3:07 AM EDT Patient sleeping on stretcher with no apparent distress noted. Respirations even and unlabored. VSS.Call carmona in reach. Louisa Spivey RN - 01/08/2019 12:40 AM EDT Patient resting comfortably on stretcher with no acute distress noted. Discussion w/ treatment team re patient's continued hypertension. Dr. Cisse to f/u. Will continue to monitor. Call carmona in reach. Alvaro Cisse MD - 01/08/2019 12:00 AM EDT Emergency Department Sign-Out Note The patient was signed out to me by preceding ED team. Please see their notes for full details. I assumed the patient's care, reviewed the medical record, and discussed the patient's ED course with theprevious treatment team. Pertinent labs and studies have been reviewed. Brief HPI The patient presented with chest pain radiating to her back. She has a known AAA and was seen at outside hospital with an indeterminate troponin and sent here with concern for possible ruptured AAA. She has been seen by vascular surgery and have no concern for ruptured AAA and they have signed off. Bedside echo demonstrates new anterior wall motion abnormalities and grossly decreased EF. We will await troponin, and likely admit to cardiology for further work-up and evaluation. ED Course (since sign-out to me) Troponin 0.05, BNP 35,000. Patient continuing to have intermittent chest pain. Cr 3.42. Troponin maybe elevated 2/2 demand from HTN, or due to CKD. Patient had elevated BP and cr three months ago witha negative troponin. Delta troponin is stable. Patient will be admitted to cardiology for further work up. She may require a catheterization during this hospitalization for further characterization of her chest pain/troponin elevation/anterior wall hypokinesis. Assessment/Plan Chest pain concerning for ACS. Admit to cardiology. Alvaro Cisse MD Resident 01/08/19 0727 Louisa Spivey RN - 01/07/2019 11:25 PM EDT Patient resting comfortably on stretcher with no acute distress noted. Medicated per orders. Continued hypertension, vitals otherwise WNL. Call carmona in reach. Louisa Spivey RN - 01/07/2019 10:27 PM EDT Patient resting comfortably on stretcher with no acute distress noted. Hypertensive, Vascular Surgery at bedside. Call carmona in reach. Natalia Grover MD - 01/07/2019 9:11 PM EDT ED Resident Note Pretty Harmon is an 68 y.o. female who presents to the ED with: Chief Complaint Patient presents with ??? Hospital Transfer I saw this patient on 01/08/2019. History is from patient. HPI Pretty Harmon is a 68 y.o. female with history of viral hepatitis, AAA, renal artery stenosis, hypertension, PVD, who presents to the Emergency Department as a transfer from outside hospital due to concern for possible ruptured AAA. Patient reports that she developed acute onset upper abdominal pain andshortness of breath earlier this afternoon at roughly 3 PM. Patient has history of renal artery bypass due to renal artery stenosis in August 2018. Received iron infusion this afternoon that was ordered by head greenskeeper. Currently, patient is pain- free. She reported that she has had intermittent episodes of similar pain that have occurred randomly over the course of the past year. Associated lightheadedness. No nausea or vomiting. No fevers, chills, leg pain, lower extremity edema, cough, hemoptysis. Labs at outside hospital notable for troponin = 0.17 which is reportedly in indeterminate range. Also reported that repeat was increased to 0.21. PMH: Past Medical History: Diagnosis Date ??? AAA (abdominal aortic aneurysm) [id number] angiogram; 3.2 cm infrarenal ??? Constipation ??? Dyslipidemia ??? Hypertension ??? Insomnia ??? Peripheral vascular disease ??? Renal artery stenosis R; per 2009 angiogram Review of Systems: Review of Systems 10 point review of systems obtained and negative other than stated in the HPI Physical Exam: Temp: -- Heart Rate: [77-81] Resp: [11-17] BP: (171-193)/(102-113) SpO2: [87 %-94 %] Heart Rate from SpO2: [77 bpm-81 bpm] General: AAOx4, in NAD HEENT: normocephalic/atraumatic, EOMI, PERRL, MMM. Oropharynx clear, pink, moist without erythema/exudates. Neck: supple, full range of motion Cardiovascular: normal rate, regular rhythm, S1/2, no murmurs, rubs, gallops. peripheral pulses intact bilaterally. no LE edema Pulmonary: LCTAB Abdomen: soft, nondistended, no TTP, no rebound/guarding Skin: no rashes, no bruising, no lesions MSK: no deformities. Neuro: CN II-XII grossly intact bilaterally. No Gross focal neurologic deficits ED Course: - Patient seen under the supervision of the attending physician. - Medications, allergies, and past medical history reviewed. Recent Results (from the past 24 hour(s)) Basic Metabolic Panel (non-fasting) Result Value Ref Range Glucose Lvl 121 65 - 199 mg/dL BUN 61 (H) 8 - 18 mg/dL Creatinine 3.68 (H) 0.70 - 1.20 mg/dL Sodium 131 (L) 135 - 145 mmol/L Potassium Not Perf 3.5 - 5.0 Chloride 92 (L) 98 - 107 mmol/L CO2 18 (L) 22 - 31 mmol/L Anion Gap 21 (H) 5 - 15 mmol/L Calcium 9.4 8.5 - 10.5 mg/dL eGFR 12 (L) >=60 mL/min/1.73 m?? eGFR 14 (L) >=60 mL/min/1.73 m?? Troponin Result Value Ref Range Troponin-T Not Perf 0.00 - 0.00 Hemogram Result Value Ref Range WBC 9.3 4.0 - 9.5 x10(3)/mcL RBC 4.12 4.00 - 5.21 x10(6)/mcL Hemoglobin 12.6 11.7 - 15.5 gm/dL Hematocrit 37.0 35.7 - 45.8 % MCV 89.8 82.6 - 94.4 fL MCH 30.6 27.1 - 32.0 pg MCHC 34.1 31.7 - 35.0 gm/dL Platelets 267 145 - 357 x10(3)/mcL RDWSD 48.9 (H) 37.0 - 46.0 fL RDWCV 15.2 (H) 11.5 - 14.1 % MPV 11.4 7.6 - 12.9 fL nRBC % Auto 0.0 % nRBC Abs Auto 0.000 0.000 - 0.000 x10(3)/mcL Differential, Automated Result Value Ref Range Neutrophils % 78.0 % Neutr Abs (ANC) 7.23 (H) 1.70 - 6.10 x10(3)/mcL Lymphocytes % 11.1 % Lymphocytes Abs 1.0 0.9 - 3.2 x10(3)/mcL Monocytes % 7.1 % Monocyte Abs 0.7 0.3 - 0.9 x10(3)/mcL Eosinophils % 1.9 % Eosinophils Abs 0.2 0.0 - 0.4 x10(3)/mcL Basophils % 0.9 % Basophils Abs 0.1 0.0 - 0.1 x10(3)/mcL Immature Gran % 1.00 % Blanca Gran Abs 0.09 (H) 0.00 - 0.04 x10(3)/mcL Blue Tube HOLD Result Value Ref Range Blue Hold Sample in lab. Hepatic Function Panel Result Value Ref Range Total Protein 7.4 6.1 - 8.0 gm/dL Albumin 4.1 3.2 - 5.2 gm/dL AST Not Perf 0 - 30 ALT 33 (H) 0 - 30 unit/L Alk Phos 118 (H) 35 - 105 unit/L Total Bilirubin 0.7 0.2 - 1.3 mg/dL Bili, Direct Not Perf 0.0 - 0.3 Lipase Result Value Ref Range Lipase 27 0 - 60 unit/L Basic Metabolic Panel (non-fasting) Result Value Ref Range Glucose Lvl 121 65 - 199 mg/dL BUN 59 (H) 8 - 18 mg/dL Creatinine 3.42 (H) 0.70 - 1.20 mg/dL Sodium 131 (L) 135 - 145 mmol/L Potassium 4.2 3.5 - 5.0 mmol/L Chloride 93 (L) 98 - 107 mmol/L CO2 20 (L) 22 - 31 mmol/L Anion Gap 18 (H) 5 - 15 mmol/L Calcium 9.5 8.5 - 10.5 mg/dL eGFR 13 (L) >=60 mL/min/1.73 m?? eGFR 15 (L) >=60 mL/min/1.73 m?? Blue Tube HOLD Result Value Ref Range Blue Hold Sample in lab. Gold Tube HOLD Result Value Ref Range Gold Hold Sample in lab. Lavender Tube HOLD Result Value Ref Range Lavender Hold Sample in lab. CK Result Value Ref Range CK, Total 231 (H) 0 - 160 unit/L ED Course as of Jan 08 43 Fri Jan 07, 2019 2243 Vascular surgery feel strongly that this is not the results of ruptured AAA and there is no further diagnostic work-up required to evaluate for AAA rupture. 2256 EKG obtained due to evidence of nausea. No ischemic changes were visualized. Sat Jan 08, 2019 004 CK, Total(!): 231 Bedside Ultrasound During ED Visit: Point of care emergency department limited cardiac ultrasound: Indications: Epigastric/chest pain Procedure in Detail: Using a phased array transducer, cardiac imaging was performed using Echo Windows: Parasternal short axis, Parasternal long axis and Apical four chamber windows. Imaging showed a no pericardial effusion and LV function: Severly Depressed (EF<30%) global left ventricular function. The inferior vena cava was interrogated in the right parasaggital plane and was without respiratory variation. Other findings or limitations: None Impression: Point of care limited bedside echocardiography with no pericardial effusion and LV function: Severly Depressed (EF<30%) global left ventricular function. This study was supervised by an ultrasound credentialed emergency physician. These images were archived digitally and I independently interpreted the images at the bedside and agree with the documentedresults. Consults: -Cardiology Medications given: Medications labetalol (NORMODYNE,TRANDATE) injection 20 mg (has no administration in time range) aspirin chewable tablet 324 mg (324 mg Oral Given 01/07/19 7143) Assessment and Plan: 68 y.o. female with history of AAA, CKD, hypertension, PVD who presents with episode of acute onset upper abdominal/chest pain with associated shortness of breath. Patient hypertensive and hypoxemic, but overall stable. Physical exam overall unremarkable with no significant abdominal tenderness and peripheral pulses were intact upper and lower extremities bilaterally. Hocan-ko-trep ultrasound showed presence of AAA without evidence of obvious rupture. Tchva-mm-mziy echo showed severely reduced EF and concern for segmental wall motion of normalities (most recent TTE showed EF =54% and no segmental wall motion abnormalities noted). Patient's case was discussed with vascular surgery considering she was transferred due to concern for possible aortic rupture. They felt strongly this was not the resultof a AAA rupture and felt no additional diagnostic work-up required at this time. EKG showed ST depressions in 4 through V6 but no significant change from prior. ACS work-up was initiated. Troponin pending at the time of signout (initial troponin and CK hemolyzed in the lab therefore repeats were sent). Considering the patient's change in EF from TTE performed in 08/2018 and mildly elevated troponin at outside hospital, high suspicion that her presentation is secondary to ACS. Cardiology was paged. At the time of signout, patient is awaiting consult from cardiology and troponin/CK. I envision this patient will ultimately be admitted to the cardiology service for management of ACS or if troponins are negative acute on chronic systolic heart failure. Signout given to overnight EM provider. Relevant HPI/findings, vitals, and labs/results discussed. Currently planned disposition is: Pending troponin/CK and cardiology consult and recommendations. I envision this patient being admitted likely to cardiology for ACS versus acute on chronic systolic heart failure Rolo Solis MD Resident 01/08/19 0112 ED ATTENDING ATTESTATION NOTE The patient was seen in conjunction with Dr. Solis, the resident physician. I have independently performed the burgess portions of the history and physical exam. I have reviewed the nursing notes, vital signs, and all diagnostic studies personally including labs, imaging studies and EKGs. I have discussed the details of the case with the resident and agree with the assessment and plan as described in the resident note above unless noted otherwise below. Brief Summary: CP/abd pain as above with complicated PMH. Transferred for vascular eval. Initial eval in ED by Dr. Solis and myself more concerning for cardiac etiology. Bedside U/S performed by Dr. Solis and reviewed by me real- time concerning for globally depressed EF. Agree with above plan. Final Assessment: as above. Natalia Grover MD 01/11/19 1637 documented in this encounter Miscellaneous Notes Care Management - Jesus Isaac RN - 01/20/2019 9:15 AM EDT The patient/customer success representative has been provided a list of Home Health Agencies/DME vendors which serve their preferred geographic area. A letter describing our affiliations was reviewed with them and theywere educated about their right to choose where referrals are placed. Patient requests referral to :: [facility] Expected date of discharge: :: next 24-48 hours. Referral routed to the Water Supervisor for matching with agency/vendor and to provide any required information. Care Management - Jesus Isaac RN - 01/19/2019 11:08 AM EDT IDR Rounds: Can restart ABBY/ARB since her creatinine has been pretty much stable with some fluctuations in between. Continue holding diuretics. Per provider - plan for discharge tomorrow Services: None anticipated Transport: Spouse A member of the Care Management team will continue to monitor progress, follow for continuity of care and assist with transition of care planning. Care Management - Jesus Isaac RN - 01/17/2019 12:15 PM EDT IDR Rounds:acute on chronic renal failure with waxing and waning creatinine which is together with large bladder residual a sign of obstructive uropathy Per provider - plan for B/L renal duplex Services: Patient declined VNA service at home. Transport: Spouse A member of the Care Management team will continue to monitor progress, follow for continuity of care and assist with transition of care planning. Plan of Care - Gina Conn RN - 01/17/2019 5:25 AM EDT Problem: Patient Care Overview Goal: Plan of Care Review Outcome: Ongoing (Interventions Implemented as Appropriate) 01/17/19 0522 Coping/Psychosocial Plan Of Care Reviewed With patient Plan of Care Review Progress progress toward functional goals is gradual OUTCOME EVALUATION NOTE: OUTCOME SUMMARY: SR with ST depression on tele. Sating well on RA. Very minimal urine output over night, see I/O. Slept between care. NPO since 0000. PLAN MOVING FORWARD: Cardiac MRI Renal duplex Heart failure consult INDIVIDUALIZED FALL PREVENTION INTERVENTIONS: Patient-specific fall risk factors per assessment: [current deficits]: Generalized weakness, unfamiliar environment, cables Assistance [level of assistance required for transfers and ambulation]: SBA Supervision [direct monitoring required during toileting and ADLs]: Independent Surveillance [continuous indirect monitoring]: Tele, spo2 Patient-specific fall prevention interventions for sensory deficits provided, if applicable: [X] N/A CPG GOAL OUTCOME EVALUATION: ongoing Plan of Care - Jinny Schwartz RN - 01/16/2019 6:14 PM EDT Problem: Patient Care Overview Goal: Plan of Care Review Outcome: Ongoing (Interventions Implemented as Appropriate) 01/16/19 0820 01/16/19 1807 Coping/Psychosocial Plan Of Care Reviewed With patient -- Plan of Care Review Progress -- progress toward functional goals is gradual OUTCOME EVALUATION NOTE: OUTCOME SUMMARY: Pt had a good shift. A&O. VSS, see flowsheets. NSR on tele, see report. Denied CP or SOB. O2 sat84% for noon vitals, oxygen applied. Oxygen increased to 5L for patients O2 sat to reach above 90%. Team at bedside to assess crackles that developed in lower lobes of lungs. Gradually able to wean pt off oxygen throughout shift. Pt had little to no oral intake during the day. Pt attempted to eat somelunch but ended up vomiting all of it up. CXR and abdominal xray done, see chart for results. Patient had good sized BM today with relief to some of the abdominal fullness she has been feeling. Caballero inserted due to retention over a span of a few days and at request of patient. Will continue to monitor. PLAN MOVING FORWARD: Cardiac MRI and Renal duplex study tomorrow Continue D/C planning as appropriate INDIVIDUALIZED FALL PREVENTION INTERVENTIONS: Patient-specific fall risk factors per assessment: [current deficits]: Generalized weakness. Unfamiliar environment. Tele. Assistance [level of assistance required for transfers and ambulation]: SBA Supervision [direct monitoring required during toileting and ADLs]: Intermittent monitoring. Call carmona in reach Surveillance [continuous indirect monitoring]: Hourly rounding. Tele. Patient-specific fall prevention interventions for sensory deficits provided, if applicable: [X] Yes CPG GOAL OUTCOME EVALUATION: Ongoing Goal: Fall Prevention-Safe Patient Handling Outcome: Ongoing (Interventions Implemented as Appropriate) 01/14/19 0850 01/16/19 0820 01/16/19 1300 Activity Activity Type -- -- activity adjusted per tolerance Activity Assistance Provided -- -- assistance, stand-by Assistive Device Utilized -- -- none Positioning Body Position -- independent -- Daily Care Interventions Self-Care Promotion BADL personal objects within reach;BADL personal routines maintained;independence encouraged -- -- Restraint Interventions Safety Promotion/Fall Prevention -- -- -- Lamb Fall Risk History of Falling -- 0 -- Secondary Diagnosis -- 15 -- Ambulatory Aids -- 0 -- Intravenous Therapy/Heparin/Saline Lock -- 20 -- Gait/Transferring -- 0 -- Mental Status -- 0 -- Score -- 35 -- OTHER Lamb Fall Risk -- Med -- 01/16/19 1800 Activity Activity Type -- Activity Assistance Provided -- Assistive Device Utilized -- Positioning Body Position -- Daily Care Interventions Self-Care Promotion -- Restraint Interventions Safety Promotion/Fall Prevention safety round/check completed Lamb Fall Risk History of Falling -- Secondary Diagnosis -- Ambulatory Aids -- Intravenous Therapy/Heparin/Saline Lock -- Gait/Transferring -- Mental Status -- Score -- OTHER Lamb Fall Risk -- Goal: Infection Control Outcome: Ongoing (Interventions Implemented as Appropriate) 01/16/19 0820 Safety Interventions Isolation Precautions standard precautions maintained Infection Prevention environmental surveillance performed;rest/sleep promoted;single patient room provided Coping Strategies Supportive Measures active listening utilized;decision-making supported;positive reinforcement provided;self-care encouraged Plan of Care - Myrna Almaguer RN - 01/16/2019 1:30 AM EDT OUTCOME EVALUATION NOTE: OUTCOME SUMMARY: Pt had an uneventful night. A+Ox4 on RA.VS and I/O as documented. SR w/ ST depression on tele. No complaints of CP or SOB. Pt reports abdominal fullness, pt void very little amounts ~20-50cc at a time,bladder scanned for ~600cc, pt straight cath x1. No reports of pain or discomfort this shift. Pt hada small bowel movement this AM after giving bowel meds as ordered. Will continue to monitor PLAN MOVING FORWARD: Renal duplex Cardiac MRI D/C planning as appropriate INDIVIDUALIZED FALL PREVENTION INTERVENTIONS: Patient-specific fall risk factors per assessment: [current deficits]: Unfamiliar environment, telemetry, pulse ox, general weakness Assistance [level of assistance required for transfers and ambulation]: SBA , non-stick socks/slippers Supervision [direct monitoring required during toileting and ADLs]: Eyes on Surveillance [continuous indirect monitoring]: Hourly purposeful rounding, call carmona in reach; room kept free of obstacles; Patient-specific fall prevention interventions for sensory deficits provided, if applicable: Lighting adjusted to task/safety CPG GOAL OUTCOME EVALUATION: Ongoing Plan of Care - Amy Baptiste RN - 01/15/2019 6:15 PM EDT Problem: Patient Care Overview Goal: Plan of Care Review Outcome: Ongoing (Interventions Implemented as Appropriate) 01/14/19 1616 01/15/19 0830 Coping/Psychosocial Plan Of Care Reviewed With -- patient Plan of Care Review Progress progress towards functional goals is fair -- OUTCOME EVALUATION NOTE: OUTCOME SUMMARY: Pretty had an uneventful day, family in to visit. BP well controlled, refused afternoon hydralazine, made aware. NSR on tele. Got permission to go outside off of the monitor for 30 minutes today. Ambulated around the unit. Denies any dizziness/SOB/or pain. Encouraged PO intake today. Only able to void a small amount this evening, bladder scan of 633mL done and straight cathed. Suppository given after. PLAN MOVING FORWARD: Renal duplex, cardiac MRI, encourage PO intake INDIVIDUALIZED FALL PREVENTION INTERVENTIONS: Patient-specific fall risk factors per assessment: [current deficits]: unfam env, tubing Assistance [level of assistance required for transfers and ambulation]: SBA Supervision [direct monitoring required during toileting and ADLs]: Intermittent Surveillance [continuous indirect monitoring]: Safety rounding Patient-specific fall prevention interventions for sensory deficits provided, if applicable: n/a CPG GOAL OUTCOME EVALUATION: Plan of Care - Malou Chaidez RN - 01/14/2019 4:31 PM EDT Problem: Patient Care Overview Goal: Plan of Care Review Outcome: Ongoing (Interventions Implemented as Appropriate) 01/14/19 1616 Coping/Psychosocial Plan Of Care Reviewed With patient;spouse Plan of Care Review Progress progress towards functional goals is fair OUTCOME EVALUATION NOTE: OUTCOME SUMMARY: Pretty went for a RIGHT heart cath this afternoon. Right groin site dressing CDI, distal pulse present. Rodolfo at bedside today. Pretty denied pain, reported feeling woozy when ambulating back from bathroom; SBPs in 120s this afternoon. Afternoon hydralazine held per REAG[facility] Mi. Patient refused clonidine this morning, team aware. Nephrology consulted. Per patient report she has not had a significantBM since 01/02/19, team aware, colace started. Patient does not report any constipation, is passing gas. SB/SR on tele, HR 55-70. PLAN MOVING FORWARD: Needs cardiac MRI and renal duplex, medication management. INDIVIDUALIZED FALL PREVENTION INTERVENTIONS: Patient-specific fall risk factors per assessment: [current deficits]: Unfamiliar environment. Assistance [level of assistance required for transfers and ambulation]: SBA Supervision [direct monitoring required during toileting and ADLs]: Eyes on. Surveillance [continuous indirect monitoring]: Telemetry. Patient-specific fall prevention interventions for sensory deficits provided, if applicable: Call carmona in reach, room near RN station, door open, purposeful rounding, nonskid socks when OOB. CPG GOAL OUTCOME EVALUATION: Goal: Fall Prevention-Safe Patient Handling Outcome: Ongoing (Interventions Implemented as Appropriate) 01/14/19 0850 01/14/19 1100 Activity Activity Type -- activity adjusted per tolerance Activity Assistance Provided -- independent Assistive Device Utilized -- none Positioning Body Position independent -- Daily Care Interventions Self-Care Promotion BADL personal objects within reach;BADL personal routines maintained;independence encouraged -- Lamb Fall Risk History of Falling 0 -- Secondary Diagnosis 15 -- Ambulatory Aids 0 -- Intravenous Therapy/Heparin/Saline Lock 20 -- Gait/Transferring 0 -- Mental Status 0 -- Score 35 -- OTHER Lamb Fall Risk Med -- Restraint Interventions Safety Promotion/Fall Prevention activity supervised;fall prevention program maintained;nonskid shoes/slippers when out of bed;safety round/check completed -- Goal: Infection Control Outcome: Ongoing (Interventions Implemented as Appropriate) 01/14/19 0850 Safety Interventions Isolation Precautions standard precautions maintained Infection Prevention environmental surveillance performed;rest/sleep promoted;single patient room provided Coping Strategies Supportive Measures active listening utilized;verbalization of feelings encouraged;self-care encouraged;positive reinforcement provided Care Management - Jesus Isaac RN - 01/14/2019 3:40 PM EDT IDR Rounds:Cardiomyopathy Per provider - plan for Heart cath today. Services: None anticipated Transport: Spouse A member of the Care Management team will continue to monitor progress, follow for continuity of care and assist with transition of care planning. Brief Op Note - Brent Kamara MD - 01/14/2019 2:18 PM EDT Brief Operative Note Patient Name: Pretty Harmon : [id number] MR#: [id number] Case Date: 01/14/2019 Surgeon: Surgeon(s) and Role: * Brent Kamara MD - Primary * Gerard Auguste MD - Fellow * Frank Arroyo DO - Fellow Preoperative diagnosis: Cardiomyopathy Postoperative diagnosis: Cardiomyopathy Procedure(s) (LRB): CARDIAC CATHETERIZATION (N/A) Findings: RA mean - 7 mmHg RV systolic - 42 mmHYg PA s/d/mean - 44/21/31 mmHg PCWP mean - 24 mmHg CO/CI (Yamini) - 3.07/2.44 CO/CI (Td) - 3.75/2.[address] Edmundo Gates, referring service attending. Complications: None Plan of Care - Hiwot Lechuga PA - 01/14/2019 1:37 PM EDT Images from the original note were not included. Cardiac cath Pre Procedure Note The indications, expected benefits and potential risks of heart catheterization were reviewed in detail with the patient. The potential for , heart attack, stroke, kidney failure, hemorrhage, allergic reaction, vascular complications and infection were reviewed in detail. The possibility of stenting and other percutaneous intervention with associated risk was reviewed. The possible need for emergent coronary artery bypass surgery was reviewed. After a discussion about the above, and having answered all questions posed, the patient was provided with a consent which was reviewed and signed. ASA: 3: Patient with severe systemic disease Mallampati: I: soft palate, fauces, tonsillar pillars and uvula can be seen Sedation Plan: moderate (conscious sedation) Assessment and Plan: Proceed with cardiac cath today, see progress note from today for further details. REAG[facility] FRANCO 01/14/2019 Pager [phone] Plan of Care - Madyson Trevizo RN - 01/14/2019 6:19 AM EDT OUTCOME EVALUATION NOTE: OUTCOME SUMMARY: Pt had a good shift. A&O. VSS on RA. Denied CP or SOB. No other complaints of pain or discomfort. Will continue to monitor PLAN MOVING FORWARD: Continue D/C planning as appropriate INDIVIDUALIZED FALL PREVENTION INTERVENTIONS: Patient-specific fall risk factors per assessment: [current deficits]: Generalized weakness, unfamiliar environment, tubes/wires Assistance [level of assistance required for transfers and ambulation]: sba Supervision [direct monitoring required during toileting and ADLs]: Nurse's station, purposeful hourly rounding, call carmona within reach Surveillance [continuous indirect monitoring]: Tele Patient-specific fall prevention interventions for sensory deficits provided, if applicable: lighting adjusted for task/safety. CPG GOAL OUTCOME EVALUATION: Ongoing Plan of Care - Delmis Gutierrez RN - 01/13/2019 5:02 PM EDT Problem: Patient Care Overview Goal: Plan of Care Review Outcome: Ongoing (Interventions Implemented as Appropriate) 01/11/19 1551 01/13/19 0800 Coping/Psychosocial Plan Of Care Reviewed With -- patient Plan of Care Review Progress progress towards functional goals is fair -- OUTCOME SUMMARY: Pt., had a good day, A&O, VS in doc flow, tele: SR, full report in chart. She denies CP/SOB, shaky hands, and dizziness/lightheadedness. She has been up ambulating and sitting up in chair, tolerating well. She continues to have a poor appetite, encouraged pt., to try to eat more. Fluid restrictionmaintained. Family at the bedside. Call carmona within reach. Will continue to monitor. ?? PLAN MOVING FORWARD: Med manage, diurese, fluid restriction, ambulate, and cardiac MRI tomorrow at 1130. ?? INDIVIDUALIZED FALL PREVENTION INTERVENTIONS: ?? Patient-specific fall risk factors per assessment: [current deficits]:?? IV line, hospital environment, comorbidities, fatigue/dizziness. ?? Assistance [level of assistance required for transfers and ambulation]:?? SBA ?? Supervision [direct monitoring required during toileting and ADLs]:?? eyes on. ?? Surveillance [continuous indirect monitoring]:? Tele, purposeful nurse rounding, call carmona within reach. ?? CPG GOAL OUTCOME EVALUATION:? ongoing Goal: Fall Prevention-Safe Patient Handling Outcome: Ongoing (Interventions Implemented as Appropriate) 01/12/19 1812 01/13/19 0800 01/13/19 1415 Activity Activity Type -- -- ambulated in pacheco Activity Assistance Provided -- -- assistance, stand-by Assistive Device Utilized -- -- none Positioning Body Position -- independent -- Daily Care Interventions Self-Care Promotion independence encouraged -- -- Lamb Fall Risk History of Falling -- 0 -- Secondary Diagnosis -- 15 -- Ambulatory Aids -- 0 -- Intravenous Therapy/Heparin/Saline Lock -- 20 -- Gait/Transferring -- 0 -- Mental Status -- 0 -- Score -- 35 -- OTHER Lamb Fall Risk -- Med -- Restraint Interventions Safety Promotion/Fall Prevention -- -- -- 01/13/19 1600 Activity Activity Type -- Activity Assistance Provided -- Assistive Device Utilized -- Positioning Body Position -- Daily Care Interventions Self-Care Promotion -- Lamb Fall Risk History of Falling -- Secondary Diagnosis -- Ambulatory Aids -- Intravenous Therapy/Heparin/Saline Lock -- Gait/Transferring -- Mental Status -- Score -- OTHER Lamb Fall Risk -- Restraint Interventions Safety Promotion/Fall Prevention activity supervised;fall prevention program maintained;nonskid shoes/slippers when out of bed;safety round/check completed Goal: Infection Control Outcome: Ongoing (Interventions Implemented as Appropriate) 01/13/19 0800 Safety Interventions Isolation Precautions standard precautions maintained Infection Prevention environmental surveillance performed;single patient room provided Coping Strategies Supportive Measures active listening utilized;positive reinforcement provided;verbalization of feelings encouraged;relaxation techniques promoted Goal: Discharge Needs Assessment 01/08/19 1633 01/08/19 1634 01/11/19 1551 Discharge Needs Assessment Concerns To Be Addressed -- no discharge needs identified -- Readmission Within The Last 30 Days no previous admission in last 30 days -- -- Equipment Needed After Discharge none -- -- Discharge Facility/Level Of Care Needs adult foster care/[facility] -- -- Discharge Disposition -- -- still a patient Current Health Anticipated Changes Related to Illness none -- -- Activity/Self Care Review of Systems Equipment Currently Used at Home none -- -- Living Environment Transportation Available family or friend will provide -- -- Goal: Interdisciplinary Rounds/Family Conf Outcome: Ongoing (Interventions Implemented as Appropriate) 01/11/19 1551 Interdisciplinary Rounds/Family Conf Participants dietitian/nutrition services;advanced practice nurse;nursing;patient;pharmacy;physician Care Management - Jesus Isaac RN - 01/12/2019 1:56 PM EDT IDR Rounds:lower dose torsemide today, possible cardiac MRI, patient not eating enough/ Nutrition onboard. Services: None anticipated Transport: Spouse A member of the Care Management team will continue to monitor progress, follow for continuity of care and assist with transition of care planning. Plan of Care - Chet Flores RN - 01/12/2019 1:17 PM EDT Problem: Patient Care Overview Goal: Plan of Care Review Outcome: Ongoing (Interventions Implemented as Appropriate) 01/11/19 1551 01/12/19 0922 Coping/Psychosocial Plan Of Care Reviewed With -- patient Plan of Care Review Progress progress towards functional goals is fair -- OUTCOME EVALUATION NOTE: OUTCOME SUMMARY: Pretty had a good day today. Continues to be hypertensive in the 150s-160s systolic. Continuous telemetry continued; NSR w/ worse ST depression. 40mg Torsemide now added to daily meds. K+ replaced with PO 40MEq x2. Ambulating with nursing around unit; c/o lightheadedness throughout walk. Orthostatics pos. When sitting to standing; see doc yasmany. C/o of shaky fingers; blood sugar WDL; team aware. Poor PO intake; encouraged and educated on need to eat. Will continue to monitor PLAN MOVING FORWARD: Monitor labs and vitals Monitor orthostatics Monitor shaky fingers Encourage ambulation Encourage PO intake 1500ml fluid restriction INDIVIDUALIZED FALL PREVENTION INTERVENTIONS: Patient-specific fall risk factors per assessment: [current deficits]: Orthostatic; gen weakness Assistance [level of assistance required for transfers and ambulation]: sba Supervision [direct monitoring required during toileting and ADLs]: sba Surveillance [continuous indirect monitoring]: Continuous telemetry; call carmona in reach; purposeful rounding Patient-specific fall prevention interventions for sensory deficits provided, if applicable: CPG GOAL OUTCOME EVALUATION: Plan of Care - Manju Soto RN - 01/12/2019 5:37 AM EDT Problem: Patient Care Overview Goal: Plan of Care Review Outcome: Ongoing (Interventions Implemented as Appropriate) 01/11/19 1551 01/11/191999 Coping/Psychosocial Plan Of Care Reviewed With -- patient Plan of Care Review Progress progress towards functional goals is fair -- OUTCOME EVALUATION NOTE: OUTCOME SUMMARY: Pretty Eckert Harmon is A/O x4, on continuous telemetry (SR), denies any c/o SOB/CP/pain/dizziness. ST depression on telemetry s/p nuclear stress, which grew throughout shift; EKG WNL and ST depression on telemetry corrected some with lead placement revision. Ortho VS positive; VS and I/O as documented. Pt repo rted feeling dizzy and lightheaded with SBP 110s when standing. Otherwise no events this shift. Willcontinue to monitor. PLAN MOVING FORWARD: Closely monitor, continue diuresis, optimize blood pressure medication regimen, repeat ortho VS, INDIVIDUALIZED FALL PREVENTION INTERVENTIONS: Patient-specific fall risk factors per assessment: [current deficits]: Telemetry, IV access, unfamiliar environment, nosocomial deconditioning Assistance [level of assistance required for transfers and ambulation]: SBA Supervision [direct monitoring required during toileting and ADLs]: Independent Surveillance [continuous indirect monitoring]: Telemetry, call bells, purposeful rounding conducted Patient-specific fall prevention interventions for sensory deficits provided, if applicable: [X] Yes Plan of Care - Zee Bassett RN - 01/11/2019 4:09 PM EDT Problem: Patient Care Overview Goal: Plan of Care Review Outcome: Ongoing (Interventions Implemented as Appropriate) 01/11/19 0801/11/19 1551 Coping/Psychosocial Plan Of Care Reviewed With patient -- Plan of Care Review Progress -- progress towards functional goals is fair OUTCOME EVALUATION NOTE: OUTCOME SUMMARY: A&Ox4. Pt went for Nuclear Stress Test this AM - see Report. Labetalol and clonidine increased -see MAR. No reports of CP or SOB. Ambulated in room w/ stand-by assist. NSR in 60s. D/C Lasix and Heparin drips. Torsemide started this afternoon - see MAR. Call carmona within reach. PLAN MOVING FORWARD: Awaiting results from nuclear stress test. Continue to actively monitor w/ medication management. Discharge planning as appropriate. INDIVIDUALIZED FALL PREVENTION INTERVENTIONS: Patient-specific fall risk factors per assessment: [current deficits]: Tele and Pulse Ox Assistance [level of assistance required for transfers and ambulation]: Stand-by assist Supervision [direct monitoring required during toileting and ADLs]: Arms reach Surveillance [continuous indirect monitoring]: Tele and Pulse; hourly rounding Patient-specific fall prevention interventions for sensory deficits provided, if applicable: [X] No CPG GOAL OUTCOME EVALUATION: Ongoing Goal: Fall Prevention-Safe Patient Handling 01/08/19 1634 01/11/19 0800 01/11/19 1200 Activity Activity Type -- activity adjusted per tolerance -- Activity Assistance Provided -- assistance, 1 person -- Assistive Device Utilized -- none -- Positioning Body Position -- independent -- Daily Care Interventions Self-Care Promotion independence encouraged;BADL personal objects within reach -- -- Lamb Fall Risk History of Falling -- 0 -- Secondary Diagnosis -- 15 -- Ambulatory Aids -- 0 -- Intravenous Therapy/Heparin/Saline Lock -- 20 -- Gait/Transferring -- 0 -- Mental Status -- 0 -- Score -- 35 -- OTHER Lamb Fall Risk -- Med -- Restraint Interventions Safety Promotion/Fall Prevention -- -- safety round/check completed Goal: Infection Control 01/11/19 0800 Safety Interventions Isolation Precautions standard precautions maintained Infection Prevention single patient room provided;personal protective equipment utilized;environmental surveillance performed Coping Strategies Supportive Measures active listening utilized;relaxation techniques promoted Goal: Discharge Needs Assessment 01/08/19 1633 01/08/19 1634 01/11/19 1551 Discharge Needs Assessment Concerns To Be Addressed -- no discharge needs identified -- Readmission Within The Last 30 Days no previous admission in last 30 days -- -- Equipment Needed After Discharge none -- -- Discharge Facility/Level Of Care Needs adult foster care/[facility]cc -- -- Discharge Disposition -- -- still a patient Current Health Anticipated Changes Related to Illness none -- -- Activity/Self Care Review of Systems Equipment Currently Used at Home none -- -- Living Environment Transportation Available family or friend will provide -- -- Goal: Interdisciplinary Rounds/Family Conf 01/11/19 1551 Interdisciplinary Rounds/Family Conf Participants dietitian/nutrition services;advanced practice nurse;nursing;patient;pharmacy;physician Problem: Cardiac: Heart Failure (Adult) Goal: Signs and Symptoms of Listed Potential Problems Will be Absent, Minimized or Managed (Cardiac:Heart Failure) Signs and symptoms of listed potential problems will be absent, minimized or managed by discharge/transition of care (reference Cardiac: Heart Failure (Adult) CPG). Outcome: Ongoing (Interventions Implemented as Appropriate) 01/11/19 1551 Cardiac: Heart Failure Problems Assessed (Heart Failure) all Problems Present (Heart Failure) fluid/electrolyte imbalance;respiratory compromise Plan of Care - Manju Soto RN - 01/11/2019 6:33 AM EDT Problem: Patient Care Overview Goal: Plan of Care Review Outcome: Ongoing (Interventions Implemented as Appropriate) 01/11/19 0631 Coping/Psychosocial Plan Of Care Reviewed With patient Plan of Care Review Progress progress toward functional goals is gradual OUTCOME EVALUATION NOTE: OUTCOME SUMMARY: Pretty Harmon is A/O x4, on continuous telemetry (SR), denies any c/o SOB/CP/pain/dizziness. Heparin gtt, Lasix gtt continued. Heparin gtt therapeutic x1. VS and I/O as documented. Otherwise no events this shift. Will continue to monitor. PLAN MOVING FORWARD: Closely monitor and nuclear stress test this AM INDIVIDUALIZED FALL PREVENTION INTERVENTIONS: Patient-specific fall risk factors per assessment: [current deficits]: Telemetry, IV access, unfamiliar environment, nosocomial deconditioning Assistance [level of assistance required for transfers and ambulation]: SBA Supervision [direct monitoring required during toileting and ADLs]: Independent Surveillance [continuous indirect monitoring]: Telemetry, call bells, purposeful rounding conducted Patient-specific fall prevention interventions for sensory deficits provided, if applicable: [X] Yes Consult Note - Hayder Fleming MD - 01/10/2019 9:03 PM EDT Vascular Surgery Consult Note Indication for Consult: Abdominal pain in setting of known aneurysm; R iliac to renal artery bypass HPI: Jami Harmon is a 68 year old female with hx of AAA, HTN, CKD, 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 VascularSurgery was contacted at [facility] because the patient also complained of abdominal pain and CT scan demonstrated what was read as abnormality of the aortic wall. Consequently, there was concern for symptomatic or ruptured aneurysm. She has since been admitted to cardiology service for management of hypertensive urgency, heart failure Previous Vascular Surgery Interventions: 2019: Right external iliac to right renal artery bypass with reversed right greater saphenous vein In Hx/Subjective -continues on IV diureses -cardiology planning for stress test tomorrow -Cr 3.2 from 3.4 Physical Exam BP 147/76 (BP Location (NBP): Left arm, Patient Position: Lying) Pulse 76 Temp 36.7 ??C (98.1 ??F) (Oral) Resp 18 Wt 37 kg (81 lb 9.1 oz) SpO2 95% BMI 15.93 kg/m?? General: awake, NAD HEENT: normocephalic, atraumatic Cardiac: Regular rate and rhythm Pulmonary: nonlabored Abdominal: Non-obese, soft, direct pressure over the aneurysm is not tender. No flank tenderness. Neuro: Grossly non-focal, Labs CBC Lab Results Component Value Date WBC 11.5 (H) 01/10/2019 Hemoglobin 10.6 (L) 01/10/2019 Hematocrit 31.2 (L) 01/10/2019 Platelets 281 01/10/2019 Last 3 Lytes Recent Labs 01/10/19 1810 01/10/19 0051 01/09/19 1906 01/09/19 0234 01/08/19 0004 NA 127* 131* 128* 130* < > 131* K 4.3 3.6 3.9 3.3* < > 4.2 CL 86* 89* 90* 87* < > 93* CO2 24 25 22 24 < > 20* BUN -- 61* -- 66* -- 59* CREATININE -- 3.23* -- 3.28* -- 3.42* < > = values in this interval not displayed. Vascular Imaging: Renal Artery Duplex: Findings: ?? Infra Renal Aorta ?PSV (cm/s): 38 Renal Artery Mid, Right ?RI: 0.98 Renal Artery Distal, Right ?RI: 0.85 Mid Pole Renal Parenchyma, Right ?PSV (cm/s): 17 ?EDV (cm/s): 5 ?RI: 0.72 ?AT (ms): 34 Renal Hilum, Right ?AT (ms): 34 Kidney Length, Right ?Length (cm): 10.0 Renal Vein, Right ?Patent: Patent ?? Right Ilio-Renal SEGMENT ?PSV (cm/s) ??EDV (cm/s) ??Location ?? Right Abdominal Graft, Inflow Artery ?219 ? 0 ??Com Iliac ?? Right Abdominal Graft, Proximal Anastomosis ?Com Iliac ?? Right Abdominal Graft, Mid ? 28 ? 0 ? Right Abdominal Graft, Distal ?33 ? 0 ? Right Abdominal Graft, Distal Anastomosis ?60 ? 9 ??Renal ? Right Abdominal Graft, Outflow Artery ?Renal ? Interpretation: ? Right: Limited visualization due to overlying bowel gas. There are elevated velocities of 219 cm/s in the RIGHT proximal common iliac artery inflow (previously 248 cm/s); cannot exclude higher velocities in the iliac artery inflow as only a segment of the proximal common iliac artery could be visualized. Unable to visualize the proximal anastomosis and proximal bypass graft The mid to distal bypass graft is patent with low velocity, resistive flow noted. Previous exam also noted low velocities through the mid/distal graft. Patent renal vein. ?? Patent abdominal aorta with an infra renal aneurysm measuring 3.6 x 3.9 cm (previously 3.6 x 3.9 cm). Mural thrombus noted through the aneurysm sac. ?? Previous Renal Studies: ?? Date ? Right PSV - RAR ? Left PSV - RAR ? 320 ?3.37 ? 255 ?2.68 ? 45 ? 1.15 ? 177 ?4.54 ? 163 ?---- ? ---- ? ---- ? 37 ? ---- ? ---- ? ---- ? 59 ? 0.84 ? ---- ? ---- ? 60 Assessment: This is a 68 year old female with hypertension, congestive heart failure, and abdominal aortic aneurysm who presents with shortness of breath and complaints of chronic abdominal pain. She is being managed by cardiology team for hypertensive urgency and heart failure exacerbation. Her AAA remains around 4cm in size, will arrange for follow up in 6 months with AAA duplex for continued surveillance. Herright external iliac to right renal artery bypass remains patent on duplex imaging today. Will arrange for clinic follow up with Dr Moody in 6 months with repeat renal artery duplex for continued surveillance. Patient should continue daily ASA for bypass graft patency. Thank you for allowing us to participate in the care of this pleasant patient. Hayder Fleming MD Vascular Surgery Resident 01/10/2019 9:03 PM Initial Assessments - Jesus Isaac RN - 01/10/2019 12:52 PM EDT Office of Care Management Initial Assessment Jesus Isaac RN reviewed record and discussed patient with Care Team. Source of Information: patient Introduced self/reviewed role; services accepted. Reason for Hospitalization: Evaluation and management of systolic heart failure Newly identified cardiomyopathy CKD stage IV ?? Past Medical History: Diagnosis Date ??? AAA (abdominal aortic aneurysm) [id number] angiogram; 3.2 cm infrarenal ??? Constipation ??? Dyslipidemia ??? Hypertension ??? Insomnia ??? Peripheral vascular disease ??? Renal artery stenosis R; per 2010 angiogram Hospitalizations Within the Past 30 Days: none Anticipated Length Of Stay (If known): 3-5 days Current Decision-Making Capacity: A and O x 4 Advance Care Planning: AD family physician is faxing it in. Current Coping/Education/Information Needs: denies. Current Functional Ability: up with one person in the room Functional Status Prior to Admission: independent at home and still drives. Home Environment: Patient lives in a 2 story home with her Rodolfo. Social & Family Supports/Community Resources: Her spouse Rodolfo. Behavioral Health History: denies Substance Use/Abuse: none Health/Prescription Coverage: Primary Insurance: MEDICARE Secondary Insurance: [employer] Prescription Coverage: yes [facility] Primary Care Provider: Sanjuanita Lee MD [phone] Patient/Caregiver Goals of Treatment: to return home Potential Needs for Transition of Care: Rehab/SNF: TBD based on hospital course Home Health: TBD. DME: n/a Dialysis: n/a Community Resources: n/a Transportation: her Anticipated Barriers to Discharge/Special Considerations: TBd as hospital course progresses. Assessment: Weight loss of 15.8% x 26 days from 47.4 kg (08/29) to 39.9 kg (10/04)??and presents with lean muscle loss at clavicles and subcutaneous fat loss at triceps??consistent with severe protein calorie malnutrition. New HR and KUSH. ?? Plan: TBD as medical treatment continues. A member of the Care Management team will continue to monitor progress, follow for continuity of care and assist with transition of care planning. Jesus Isaac RN Pager: [phone] Consult Note - Mainor Doyle MD - 01/10/2019 10:57 AM EDT HYPERTENSION/ NEPHROLOGY CONSULT NOTE PATIENT: Pretty Harmon : 1950 REASON FOR CONSULTATION: Consulted by cardiology for acute kidney injury on chronic kidney disease, hypertension management. HPI: 68 y.o. female with PMHx significant for stage IV CKD with a creatinine running in the 2.75 range, due to long-standing uncontrolled hypertension and renal ischemia due to renal artery stenosis, rightrenal angioplasty on August 2018, with normal flow in the left kidney, with uncontrolled blood pressuredifficult to control due to hypotension as well as significant elevation of blood pressure at other times, history of abdominal aortic aneurysm, history of congestive heart failure with flash pulmonaryedema, came to the hospital on 01/24/2019 because of significant shortness of breath. Patient was admitted under cardiology service and was getting diuresed with Lasix and made more than2 L of urine for the past 2 days. Her creatinine at the time of admission was 3.68 which trended down to 3.23. Patient blood pressure was still in the 170 systolic range even though she was on amlodipine 10 mg, clonidine 0.2 twice daily and labetalol 300 twice daily. Patient had an echocardiogram done during this current admission where she was found to have an ejection fraction of 20 to 25% with a pulmonary artery pressure of 47. When I saw and examined her she was lying comfortably on the bed she was not on oxygen and saturating 88 to 89% which went up to 92 to 93% on 1 to 2 L of oxygen but she was not dyspneic she was engaging in pleasant conversation. She said she had not gained weight in fact she had lost weight recently, she has not had any significant change in her appetite. Does not have any nausea vomiting dysuria hematuria or any chest pain. Review of system- A 10 point review of system including cardiovascular, neurological, pulmonary, gastrointestinal was done, everything was negative except for what was mentioned above. Past Medical History: Diagnosis Date ??? AAA (abdominal aortic aneurysm) [id number] angiogram; 3.2 cm infrarenal ??? Constipation ??? Dyslipidemia ??? Hypertension ??? Insomnia ??? Peripheral vascular disease ??? Renal artery stenosis R; per 2009 angiogram Past Surgical History: Procedure Laterality Date ??? HYSTERECTOMY ? ? PRO CATHETER 1ST ORDER W/WO ART PUNCT/FLUORO/S&I BILATERAL Bilateral 09/01/[address] (FIRST-ORDER), MAIN RENAL ART & ANY ACC, W/S&I; ANDREY (WRVU 6.99) performedby Greyson Chen MD at [facility] MAIN OR ??? PRO UPPER GI ENDOSCOPY, DIAGNOSTIC 01/20/2014 EGD, UPPER GI ENDOSCOPY performed by Corby Cano MD at [facility] ENDOSCOPY ??? PRO UPPER GI ENDOSCOPY, DIAGNOSTIC N/A 07/28/2017 EGD, UPPER GI ENDOSCOPY performed by Snow Liao MD at [facility] ENDOSCOPY ??? PRO VEIN BYPASS GRAFT, AORTOILIOFEMORAL N/A 09/07/2018 @BYPASS GRAFT, AORTOILIAC W\ VEIN CONDUIT (WRVU 41.88) performed by Unique Moody MD at [facility] MAIN OR Family History Problem Relation Age of Onset ??? Hypertension Mother ??? Cervical Cancer Mother ??? Chronic Obstructive Pulmonary Disease Father ??? Hypertension Sister Social History Social History Narrative , lives with Rodolfo of 50 years. 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 Hoping to retire 11/2018 and travel throughout [facility] and [place] with Rodolfo. No history of heavy etoh use 2 children healthy Outpatient medications: No current facility-administered medications on file prior to encounter. Current Outpatient Medications on File Prior to Encounter Medication Sig Dispense Refill ??? ranitidine (ZANTAC) 150 mg Tablet Take 150 mg by mouth 2 times daily. ??? furosemide (LASIX) 20 mg Tablet Take 20 mg by mouth 2 times daily. ??? labetalol (NORMODYNE) 200 mg Tablet Take 2 tablets by mouth daily. 270 tablet 3 ??? isosorbide dinitrate (ISORDIL) 30 mg Tablet Take 90 mg by mouth daily. ??? gabapentin (NEURONTIN) 100 mg Capsule Take 200 mg by mouth nightly. ??? amLODIPine (NORVASC) 2.5 mg Tablet Take 1 tablet by mouth daily. 90 tablet 3 ??? atorvastatin (LIPITOR) 20 mg Tablet Take 1 tablet by mouth every evening. 90 tablet 3 ??? levothyroxine (SYNTHROID) 25 mcg Tablet Take 50 mcg by mouth daily. ??? aspirin 81 mg Tablet, Delayed Release (E.C.) Take 81 mg by mouth daily. ??? furosemide (LASIX) 40 mg Tablet Take 40 mg by mouth as needed. ??? cloNIDine (CATAPRES) 0.1 mg Tablet Take 1 tablet by mouth every 8 hours as needed (Please take 1tablet, if systolic blood pressure is >200). 30 tablet 3 ??? acetaminophen (TYLENOL) 500 mg Tablet Take 1 tablet by mouth every 6 hours. 30 tablet 1 MEDICATIONS: ??? cloNIDine 0.2 mg Oral BID ??? levothyroxine 75 mcg Oral Daily ??? aspirin 81 mg Oral Daily ??? atorvastatin 20 mg Oral QPM ??? gabapentin 200 mg Oral Nightly ??? sodium chloride 0.9 % (flush) 5 mL Intravenous BID ??? pantoprazole 20 mg Oral Daily ??? amLODIPine 10 mg Oral Daily ??? labetalol 300 mg Oral BID ??? magnesium oxide 400 mg Oral BID Allergies Allergen Reactions ??? Lisinopril Rise in creatinine PHYSICAL EXAM: Last value Range last 24 hrs Temperature Temp: 36.6 ??C (97.9 ??F) Temp: [36.5 ??C (97.7 ??F)-37.4 ??C (99.3 ??F)] Heart Rate Heart Rate: 76 Heart Rate: [76-82] Blood Pressure BP: 172/77 BP: (145-172)/(65-90) Respiratory Rate Resp: 18 Resp: [16-18] SpO2 SpO2: 97 % SpO2: [89 %-97 %] Patient is awake alert did not seem to be in acute distress no jaundice or mucosa moist Neck- supple trachea central Chest- bilateral air entry present crackles present in the posterior lung field CVS-S1-S2 present Abdomen-nontender nondistended, bowel sounds present., Abdominal bruit present. Extremities-peripheral pulses present, no significant edema Neuro-patient is awake alert, moving all 4 limbs, motor examination is grossly normal. No asterixis. STUDIES: Labs: CBC: Recent Labs 01/10/19 0051 01/09/19 0234 01/08/19 1002 WBC 11.5* 12.4* 10.0* HGB 10.6* 10.6* 11.6* PLATELET 281 271 271 Chemistry: Recent Labs 01/10/19 0051 01/09/19 1906 01/09/19 0234 01/08/19 0004 01/07/19 2159 01/04/19 1252 NA 131* 128* 130* < > 131* 131* 133* K 3.6 3.9 3.3* < > 4.2 Not Perf 3.6 CL 89* 90* 87* < > 93* 92* 95* CO2 25 22 24 < > 20* 18* 21* BUN 61* -- 66* -- 59* 61* 44* CREATININE 3.23* -- 3.28* -- 3.42* 3.68* 3.11* GLUCOSE -- -- -- -- 121 121 114 < > = values in this interval not displayed. Recent Labs 01/10/19 0051 01/09/19 1906 01/09/19 0234 01/08/19 1251 01/08/19 0004 01/04/19 1252 11/09/18 1226 09/03/18 0035 CALCIUM 8.9 -- 8.9 -- 9.5 < > 9.7 < > 9.5 < > 8.2* MAGNESIUM -- 0.83 0.81 0.86 -- -- -- -- -- < > 0.95 PHOS -- -- -- -- -- -- 4.0 -- 4.2 -- 4.4 < > = values in this interval not displayed. LFT's: Recent Labs 01/07/19 2159 01/04/19 1252 10/03/18 0329 06/14/18 1022 BILITOT 0.7 -- <0.2* 0.4 BILIDIR Not Perf -- 0.1 -- ALBUMIN 4.1 3.8 3.4 3.9 ALKPHOS 118* -- 72 57 ALT 33* -- 13 11 AST Not Perf -- IMPRESSION/ RECOMMENDATIONS: 68 y.o. female with PMHx significant for stage IV CKD with a creatinine running in the 2.75 range, due to long-standing uncontrolled hypertension and renal ischemia due to renal artery stenosis, right renal angioplasty on August 2018, with normal flow in the left kidney, with uncontrolled blood pressure difficult to control due to hypotension as well as significant elevation of blood pressure at other times, admitted with congestive heart failure with reduced ejection fraction with an ejection fractionof 20 to 25% this time. Nephro consulted for acute kidney injury on chronic kidney disease . #Acute kidney injury on chronic kidney disease stage IV-most probably secondary to cardiorenal syndrome. Patient has chronic kidney disease secondary to hypertensive nephrosclerosis/ischemia due to renal artery stenosis. Her creatinine has trended down from 3.68 at the time of admission to 3.23 after diuresis. Patient does not have any overt edema, her shortness of breath is much better right now. Patient is going for a stress test today and based on that might get angiogram. Recommendation: If patient is scheduled for angiogram nephrology recommends to hold diuresis. If patient is not going for angiogram nephrology advised continue diuresis for her congestive heart failure. Hypertension-patient is currently on amlodipine 10 milligrams p.o. daily, clonidine 0.2 mg twice daily, labetalol 300 mg twice daily. Amlodipine was increased to amlodipine 10 mg Yesterday. Recommendation: Recommend - transition labetalol to carvedilol 25 mg p.o. twice daily due to heart failure with reduced ejection fraction. Since the patient is on diuresis will not make major changes in her blood pressure medication currently since it has been adjusted recently. Continue PRN labetalol IV. [id number] to congestive heart failure. Potassium today is normal. Bone mineral metabolic syndrome-calcium is 8.9 normal phos- 4 on 01/04 Anemia- s/p iron infusion on on 01/07/19 Elevated troponin- going for stress test, on Heparin drip. Thank you for the consult will follow the patient with you Seen and discussed with Dr. Vivek Negron MD 01/10/2019 Nephrology Fellow Renal Attending; The patient was examined together with the renal fellow and I agree with the above note which accurately reflects our findings and assessment with the following clarification: Recommend to continue diuresis which is treatment of choice for cardiorenal syndrome but would hold before eventual radiocontrast administration Plan of Care - Radu Morin RN - 01/09/2019 5:09 AM EDT Problem: Patient Care Overview Goal: Plan of Care Review 01/08/19 1634 01/08/191999 Coping/Psychosocial Plan Of Care Reviewed With -- patient Plan of Care Review Progress no change -- OUTCOME EVALUATION NOTE: OUTCOME SUMMARY: Pt A&Ox4. Heparin drip and lasix drip maintained per protocol. Pt remained hypertensive overnight SBP 170s-200s, pt asymptomatic. MD Mockt aware. 80mg IV lasix bolus given. PVR 70-100ml. See flowsheet for VS and I/O. Patient denies pain or SOB. See tele report. Call carmona within reach. Will continue to monitor. PLAN MOVING FORWARD: Continue to diurese, fluid restriction, strict I&Os INDIVIDUALIZED FALL PREVENTION INTERVENTIONS: Patient-specific fall risk factors per assessment: [current deficits]: Tele, IV Assistance [level of assistance required for transfers and ambulation]: SBA Supervision [direct monitoring required during toileting and ADLs]: Ind Surveillance [continuous indirect monitoring]: Tele, hourly rounding Patient-specific fall prevention interventions for sensory deficits provided, if applicable: [X] N/A CPG GOAL OUTCOME EVALUATION: Ongoing assessment Goal: Fall Prevention-Safe Patient Handling 01/08/19 1634 01/08/19199901/09/19 0400 Activity Activity Type -- activity adjusted per tolerance -- Activity Assistance Provided -- assistance, stand-by -- Assistive Device Utilized -- none -- Positioning Body Position -- independent -- Daily Care Interventions Self-Care Promotion independence encouraged;BADL personal objects within reach -- -- Lamb Fall Risk History of Falling -- 0 -- Secondary Diagnosis -- 15 -- Ambulatory Aids -- 0 -- Intravenous Therapy/Heparin/Saline Lock -- 20 -- Gait/Transferring -- 0 -- Mental Status -- 0 -- Score -- 35 -- OTHER Lamb Fall Risk -- Med -- Restraint Interventions Safety Promotion/Fall Prevention -- -- fall prevention program maintained;nonskid shoes/slippers when out of bed;safety round/check completed Goal: Infection Control 01/08/191999 Safety Interventions Isolation Precautions standard precautions maintained Infection Prevention single patient room provided;rest/sleep promoted;personal protective equipment utilized;equipment surfaces disinfected;environmental surveillance performed Coping Strategies Supportive Measures active listening utilized;decision-making supported;positive reinforcement provided;self-care encouraged;verbalization of feelings encouraged Plan of Care - Brina Soto RN - 01/08/2019 4:43 PM EDT Problem: Patient Care Overview Goal: Plan of Care Review Outcome: Ongoing (Interventions Implemented as Appropriate) 01/08/191633 Coping/Psychosocial Plan Of Care Reviewed With patient Plan of Care Review Progress no change OUTCOME EVALUATION NOTE: OUTCOME SUMMARY: BP of 182/90 asymptomatic, treated with 20mg hydralazine and labatelol with good effect. Pt currently on lasix drip. Pt OOB to bathroom with SBA. Pt without complaints of pain. Pt not endorsing SOB at this time, 3L O2 satting high 90's. Poor PO intake, Nutrition ordered Nepro, pt encourage to drink. PLAN MOVING FORWARD: I/O's Monitor BP's Encourage PO Intake INDIVIDUALIZED FALL PREVENTION INTERVENTIONS: Patient-specific fall risk factors per assessment: [current deficits]: IVF, NC Assistance [level of assistance required for transfers and ambulation]: SBA Supervision [direct monitoring required during toileting and ADLs]: Eyes on Surveillance [continuous indirect monitoring]: near nursing station, purposeful rou nding, call bellin reach Goal: Fall Prevention-Safe Patient Handling Outcome: Ongoing (Interventions Implemented as Appropriate) 01/08/19 1100 01/08/191633 Activity Activity Type -- activity adjusted per tolerance;ambulated in room Activity Assistance Provided -- assistance, stand-by Assistive Device Utilized -- none Positioning Body Position -- independent;supine, head elevated Daily Care Interventions Self-Care Promotion -- independence encouraged;BADL personal objects within reach Lamb Fall Risk History of Falling 0 -- Secondary Diagnosis 15 -- Ambulatory Aids 0 -- Intravenous Therapy/Heparin/Saline Lock 20 -- Gait/Transferring 0 -- Mental Status 0 -- Score 35 -- OTHER Lamb Fall Risk Med -- Goal: Infection Control Outcome: Ongoing (Interventions Implemented as Appropriate) 01/08/191633 Safety Interventions Isolation Precautions standard precautions maintained Infection Prevention environmental surveillance performed;single patient room provided;rest/sleep promoted Coping Strategies Supportive Measures active listening utilized;goal setting facilitated;decision- making supported Goal: Discharge Needs Assessment Outcome: Ongoing (Interventions Implemented as Appropriate) 01/08/19 16301/08/191633 Discharge Needs Assessment Concerns To Be Addressed -- no discharge needs identified Readmission Within The Last 30 Days no previous admission in last 30 days -- Equipment Needed After Discharge none -- Discharge Facility/Level Of Care Needs adult foster care/[facility] -- Current Health Anticipated Changes Related to Illness none -- Activity/Self Care Review of Systems Equipment Currently Used at Home none -- Living Environment Transportation Available family or friend will provide -- Consult Note - Briana Carr RD - 01/08/2019 3:26 PM EDT Nutrition Reason for Visit: Consult for Malnutrition Suggest: 1. Nepro supplement 2 per day (goal of 1 per day at least) for 425-850 kcals and 20-40 grams proteinextra per day between meals 2. Small frequent meals--calorically dense--discussed with patient 3. Consider appetite stimulant See full assessment below Patient Vitals for the past 168 hrs: Weight 01/08/19 0602 37.2 kg (82 lb 0.2 oz) Body mass index is 16.02 kg/m??. Weight history: Vitals 2018 Height in inches 5' 0 Weight (Marshallese) 99 lbs Weight (Metric) 44.9 kg BMI (Calculated) 19.33 Vitals 09/06/2018 Height in inches 5' 0.984 Weight (Marshallese) 94 lbs 9 oz Weight (Metric) 42.9 kg BMI (Calculated) 17.88 Vitals 08/27/2017 Height in inches 5' 0 Weight (Marshallese) 108 lbs Weight (Metric) 49 kg BMI (Calculated) 21.09 Evaluation: 68 yo F with PMH of AAA, HTN, CKD V, b/l YING s/p renal artery bypass on 08/2018, hypothyroidism and chronic resolved hepatitis B cleared with theraphy who was transferred from [facility] to [facility] ED for evaluation of suspected AAA rupture. She has a low BMI. She continues to meet criteria for severe protein calorie malnutrition. She has been struggling with her weight recently, she has actually been trying to not gain weight and limit her sodium and fluid intake for renal issues. She states she has no appetite. Her was present and both state that they have been told by renal team that she needs to eat more protein and get more nutrition, but she endorses fear of weight gain from fluid on her lungs. We discussed her nutritional needs, she does appear physically depleted with lean muscle loss and subcutaneous fat loss. Nepro would be a good fit for her as it's rich in protein, renal friendly, and concentrated in calories. Results for [facility] ( ) as of 01/08/2019 15:29 Ref. Range 01/08/2019 00:04 Sodium Latest Ref Range: 135 - 145 mmol/L 131 (L) Potassium Latest Ref Range: 3.5 - 5.0 mmol/L 4.2 Chloride Latest Ref Range: 98 - 107 mmol/L 93 (L) CO2 Latest Ref Range: 22 - 31 mmol/L 20 (L) Anion Gap Latest Ref Range: 5 - 15 mmol/L 18 (H) BUN Latest Ref Range: 8 - 18 mg/dL 59 (H) Creatinine Latest Ref Range: 0.70 - 1.20 mg/dL 3.42 (H) eGFR Latest Ref Range: >=60 mL/min/1.73 m?? 13 (L) eGFR Latest Ref Range: >=60 mL/min/1.73 m?? 15 (L) Glucose Lvl Latest Ref Range: 65 - 199 mg/dL 121 Calcium Latest Ref Range: 8.5 - 10.5 mg/dL 9.5 Consult Note - Hao Domínguez MD - 01/07/2019 10:20 PM EDT Vascular Surgery Consult Note Service Requesting Consult: Emergency Medicine Indication for Consult: Abdominal pain in setting of known aneurysm. HPI: Jami Harmon is a 68 year old female who presented to an outside hospital earlier today with shortnessof breath. Vascular Surgery was contacted at [facility] because the patient also complained of abdominal pain and CT scan demonstrated what was read as abnormality of the aortic wall. Consequently, there wasconcern for symptomatic or ruptured aneurysm. On our interview today the patient states that she has had this pain for 2 months. Her states it is always there. That's a daily thing. She states that it is intermittent, where the pain willappear and last for around 2 days. It goes entirely away for 6 days. The pain then returns. She has had this current bout of pain since Thursday. She describes the pain as a tightness between her ribs. She indicates the epigastrium to localize it. She attributes this pain to her constipation. She affirms other gastrointestinal symptoms in the form of emesis, which happens, she says every other week. She states that it comes out of nowhere. She affirms a history of constipation, which she says has been for 50 years. However, last Thursday she had severe diarrhea. The stool was black-green; she was that day started on Ferrous sulfate. With regard to her dyspnea, the patient states that this is a chronic problem, since last .Her indicates a history of admissoins for severe respiratory symptoms in the past. Today, the patient underwent an IV iron infusions. After this infusion she developed shortness of breathsignificantly worse than usual today. She was unable to speak in full sentences. She at that point proceeded to the emergency room for evaluation. She denies having ever been told this is related to heart failure. Her troponin was found to be elevated at the outside hospital. She has a history of high blood pressure. She say her blood pressure has been 153 since Thursday. It's usually 153. She says that's good for her. She says 170 is unusual, and her states she has only been above 180 twice in the last two months. Of note, the patient has a 45 pack year smoking history. She quit 10 years ago. The patient has had prior Vascular Surgery evaluation or follow up. She underwent Right external iliac to right renal artery bypass with reversed right greater saphenous vein performed by Dr Moody in Aug, 2018. She was seen as a consult to our Service in September of this year when the patient was admitted with syncope and acute kidney injury. Previous Vascular Surgery Interventions: 2019: Right external iliac to right renal artery bypass with reversed right greater saphenous vein Pertinent Cardiovascular Medications: Antiplatelet Aspirin 81mg PO q day Beta Blockade Labetalol 200mg PO q day Lipid agent Atorvastatin 20mg PO qHS Anticoagulation No Other Isosorbide, Amlodipine, Furosemide, Clonidine Problem List: Patient Active Problem List Diagnosis Code ??? Viral hepatitis B acute B16.9 ??? Abdominal aortic aneurysm (AAA) without rupture I71.4 ??? Renal artery stenosis I70.1 ??? Hypertensive urgency I16.0 ??? Severe protein-calorie malnutrition E43 ??? CKD (chronic kidney disease) stage 5, GFR less than 15 ml/min N18.5 Review of Systems: A full review encompassing at least 10 organ systems including general, neuro, pulm, cardiac, GI, , MSK, Endo, and psych was negative except as noted in the History of Present Illness. Medical History Past Medical History: Diagnosis Date ??? AAA (abdominal aortic aneurysm) [id number] angiogram; 3.2 cm infrarenal ??? Constipation ??? Dyslipidemia ??? Hypertension ??? Insomnia ??? Peripheral vascular disease ??? Renal artery stenosis R; per 2009 angiogram Surgical History Past Surgical History: Procedure Laterality Date ??? HYSTERECTOMY ? ? PRO CATHETER 1ST ORDER W/WO ART PUNCT/FLUORO/S&I BILATERAL Bilateral 09/01/[address] (FIRST-ORDER), MAIN RENAL ART & ANY ACC, W/S&I; ANDREY (WRVU 6.99) performedby Greyson Chen MD at [facility] MAIN OR ??? PRO UPPER GI ENDOSCOPY, DIAGNOSTIC 01/20/2014 EGD, UPPER GI ENDOSCOPY performed by Corby Cano MD at [facility] ENDOSCOPY ??? PRO UPPER GI ENDOSCOPY, DIAGNOSTIC N/A 07/28/2017 EGD, UPPER GI ENDOSCOPY performed by Snow Liao MD at [facility] ENDOSCOPY ??? PRO VEIN BYPASS GRAFT, AORTOILIOFEMORAL N/A 09/07/2018 @BYPASS GRAFT, AORTOILIAC W\ VEIN CONDUIT (WRVU 41.88) performed by Unique Moody MD at [facility] MAIN OR Social History Social History Socioeconomic History ??? Marital status: Spouse name: Not on file ??? Number of children: Not on file ??? Years of education: Not on file ??? Highest education level: Not on file Occupational History ??? Not on file Social Needs ??? Financial resource strain: Not on file ??? Food insecurity: Worry: Not on file Inability: Not on file ??? Transportation needs: Medical: Not on file Non-medical: Not on file Tobacco Use ??? Smoking status: Former Smoker Packs/day: 0.50 ??? Smokeless tobacco: Never Used ??? Tobacco comment: smoked for ~45 years up to 1 ppd at [place], quit ~1999 Substance and Sexual Activity ??? Alcohol use: Yes Comment: a few glasses of wine, rarely 4 times a year ??? Drug use: No ??? Sexual activity: Yes Partners: Male Lifestyle ??? Physical activity: Days per week: Not on file Minutes per session: Not on file ??? Stress: Not on file Relationships ??? Social connections: Talks on phone: Not on file Gets together: Not on file Attends christianity service: Not on file Active member of club or organization: Not on file Attends meetings of clubs or organizations: Not on file Relationship status: Not on file ??? Intimate partner violence: Fear of current or ex partner: Not [...] [employer] of 50 years. 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 Hoping to retire 11/2018 and travel throughout [facility] and [place] with Rodolfo. No history of heavy etoh use 2 children healthy Family History Family History Problem Relation Age of Onset ??? Hypertension Mother ??? Cervical Cancer Mother ??? Chronic Obstructive Pulmonary Disease Father ??? Hypertension Sister Medications No current facility-administered medications on file prior to encounter. Current Outpatient Medications on File Prior to Encounter Medication Sig Dispense Refill ??? labetalol (NORMODYNE) 200 mg Tablet Take 2 tablets by mouth daily. 270 tablet 3 ??? isosorbide dinitrate (ISORDIL) 30 mg Tablet Take 90 mg by mouth daily. ??? gabapentin (NEURONTIN) 100 mg Capsule Take 200 mg by mouth nightly. ??? amLODIPine (NORVASC) 2.5 mg Tablet Take 1 tablet by mouth daily. 90 tablet 3 ??? furosemide (LASIX) 40 mg Tablet Take 40 mg by mouth as needed. ??? atorvastatin (LIPITOR) 20 mg Tablet Take 1 tablet by mouth every evening. 90 tablet 3 ??? cloNIDine (CATAPRES) 0.1 mg Tablet Take 1 tablet by mouth every 8 hours as needed (Please take 1tablet, if systolic blood pressure is >200). 30 tablet 3 ??? acetaminophen (TYLENOL) 500 mg Tablet Take 1 tablet by mouth every 6 hours. 30 tablet 1 ??? levothyroxine (SYNTHROID) 25 mcg Tablet Take 50 mcg by mouth daily. ??? aspirin 81 mg Tablet, Delayed Release (E.C.) Take 81 mg by mouth daily. Allergies Lisinopril Physical Exam BP (!) 171/103 Pulse 81 Resp 16 SpO2 93% General: Awake, alert, and oriented. Elderly Female in no acute distress. Appears older than stated age. Thin. HEENT: normocephalic, atraumatic, sclera anicteric, oral mucosa moist. Neck: trachea midline Cardiac: Regular rate and rhythm Pulmonary: Breathing comfortably on room air, equal bilateral chest rise. Abdominal: Non-obese, soft, minimally tender in the epigastrium, non-distended without rebound, direct pressure over the aneurysm is not tender. No flank tenderness. Neuro: Grossly non-focal, cranial nerves intact, normal affect Labs CBC Lab Results Component Value Date WBC 9.3 01/07/2019 Hemoglobin 12.6 01/07/2019 Hematocrit 37.0 01/07/2019 Platelets 267 01/07/2019 Last 3 Lytes Recent Labs 01/04/19 1252 11/30/18 1429 11/09/18 1226 NA 133* 136 140 K 3.6 3.6 3.7 CL 95* 99 105 CO2 21* 18* 19* BUN 44* 30* 33* CREATININE 3.11* 2.90* 2.72* Vascular Imaging: All pertinent radiologic examinations have been personally reviewed by the attending surgeon today. Findings include: Non-ruptured abdominal aortic aneurysm. Maximum diameter 4cm. Areas of concern by outside hospital read represent lymph nodes near the wall of the aorta, not penetrating ulcers or contained ruptures. There is no hemoperitoneum. No inflammation of the aneurysm sack. Assessment: This is a 68 year old female with hypertension, congestive heart failure, and abdominal aortic aneurysm who presents with shortness of breath and complaints of chronic abdominal pain. Based on the history provided by the patient, which is not suggestive of a ruptured or symptomatic aneurysm, as well as the physical exam and cross-sectional imaging, we have no suspicion for an aneurysm rupture. At 4cm, it would be extraordinarily unlikely for any aneurysm to rupture, and so the size of the aneurysm on imaging and lack of rapid growth reassures us. Her complaints are concerning for a cardiac issue. Recommendations: 1) No further diagnostic intervention indicated for her aneurysm. 2) Recommend consultation with Cardiology for consideration of cardiac cause for patient's symptoms 3) Please obtain duplex ultrasound examination of renal bypass graft during this admission. 4) We will follow. We have discussed extensively with the patient today the anatomy, pathophysiology, and medical and surgical treatment of Abdominal Aortic Aneurysm. We have reviewed the patient's imaging with them, anddescribed the disease process and its treatment using color diagrams. The patient and his indicate that all their questions have been answered and concerns have beenaddressed. Thank you for allowing us to participate in the care of this pleasant patient. Hao Domínguez MD Vascular Surgery Fellow Pager [phone] 01/07/2019 10:44 PM CC: Shortness of breath. 2 months. 2 days of pain, goes away for 6 days. Current bout of pain since Thursday. Tight between ribs. She thinks it's from not going to the bathroom. Vomiting every other week. Constipation 50 years. Last Thursday terrible diarrhea. Black With green tint last Thursday. On Ferrous sulfate. Iron infusions today. Shortness of breath, since last . Has not been told it's heart failure. More short of breath than usual today. At times Too short of breath to speak in a full sentence.Changed since yesterday. BP problems. 153 since Thursday. She says that's good for her. 45 pack year smoking history. Hyst Renal Bypass ED Triage - Tamela Heller RN - 01/07/2019 9:11 PM EDT Pt presents from [facility] w/ question of AAA rupture, her AAA is known but may have increased in size. [facility] infusion after the infusion she became increasingly sob and went to there ED. Pt is a/ov4, hypertensive sys bp 180s, denies sob, O2 > 92% on 4L nc per pt she doesn't have home o2, denies pain, +cms, +2 distal pulses. documented in this encounter Plan of Treatment Scheduled Procedures Name Priority Associated Diagnoses Date/Time EGD, UPPER GI ENDOSCOPY Gastroesophageal reflux disease, esophagitis presence not specifi ed documented as of this encounter Procedures Procedure Name Priority Date/Time Associated Comments Diagnosis EKG 12-LEAD Routine 01/20/2019 7:10 Chest pain, Results for this AM EDT unspecified type procedure a re in the results section. BMP W/FASTING GLUCOSE Routine 01/20/2019 4:29 Res ults for this AM EDT procedure are i n the results section. HEMOGRAM Routine 01/20/2019 4:29 Results for this AM EDT procedure are i n the results section. DIFFERENTIAL, AUTOMATED Routine 01/20/2019 4:29 R esults for this AM EDT procedure are i n the results section. HC VENIPUNCTURE Routine 01/20/2019 4:29 AM EDT HC MAGNESIUM, SERUM Routine 01/20/2019 4:29 Resul ts for this AM EDT procedure are i n the results section. EKG 12-LEAD Routine 01/19/2019 7:11 Chest pain, Results for this AM EDT unspecified type procedure a re in the results section. BMP W/FASTING GLUCOSE Routine 01/19/2019 5:18 Res ults for this AM EDT procedure are i n the results section. HEMOGRAM Routine 01/19/2019 5:18 Results for this AM EDT procedure are i n the results section. DIFFERENTIAL, AUTOMATED Routine 01/19/2019 5:18 R esults for this AM EDT procedure are i n the results section. HC VENIPUNCTURE Routine 01/19/2019 5:18 AM EDT HC MAGNESIUM, SERUM Routine 01/19/2019 5:18 Resul ts for this AM EDT procedure are i n the results section. MRI CARDIAC MORPHOLOGY Routine 01/18/2019 12:51 R esults for this FUNCTION WWO CONTRAST PM EDT proced ure are in the results section. EKG 12-LEAD Routine 01/18/2019 7:18 Chest pain, Results for this AM EDT unspecified type procedure a re in the results section. BMP W/FASTING GLUCOSE Routine 01/18/2019 4:30 Res ults for this AM EDT procedure are i n the results section. HEMOGRAM Routine 01/18/2019 4:30 Results for this AM EDT procedure are i n the results section. DIFFERENTIAL, AUTOMATED Routine 01/18/2019 4:30 R esults for this AM EDT procedure are i n the results section. HC VENIPUNCTURE Routine 01/18/2019 4:30 AM EDT HC MAGNESIUM, SERUM Routine 01/18/2019 4:30 Resul ts for this AM EDT procedure are i n the results section. RENAL DUPLEX COMPLETE Routine 01/17/2019 7:37 Renal artery Res ults for this AM EDT stenosis procedure are i n the results section. BMP W/FASTING GLUCOSE Routine 01/17/2019 3:54 Res ults for this AM EDT procedure are i n the results section. HEMOGRAM Routine 01/17/2019 3:54 Results for this AM EDT procedure are i n the results section. DIFFERENTIAL, AUTOMATED Routine 01/17/2019 3:54 R esults for this AM EDT procedure are i n the results section. HC CBC,PLT & AUTO DIFF Routine 01/17/2019 3:54 AM EDT HC MAGNESIUM, SERUM Routine 01/17/2019 3:54 Resul ts for this AM EDT procedure are i n the results section. HC VENIPUNCTURE Timed 01/16/2019 8:02 Results f or this PM EDT procedure are i n the results section. XR CHEST PA AND LATERAL Routine 01/16/2019 2:22 R esults for this PM EDT procedure are i n the results section. XR ABDOMEN 1 VIEW Routine 01/16/2019 2:22 Results for this PM EDT procedure are i n the results section. HC VENIPUNCTURE Routine 01/16/2019 1:06 Results f or this PM EDT procedure are i n the results section. HC MAGNESIUM, SERUM Routine 01/16/2019 1:06 Resul ts for this PM EDT procedure are i n the results section. HC VENIPUNCTURE STAT 01/16/2019 8:53 Results f or this AM EDT procedure are i n the results section. MAGNESIUM STAT 01/16/2019 8:53 Results for this AM EDT procedure are i n the results section. HC VENIPUNCTURE Routine 01/16/2019 5:20 Results f or this AM EDT procedure are i n the results section. HEMOGRAM Routine 01/16/2019 5:20 Results for this AM EDT procedure are i n the results section. DIFFERENTIAL, AUTOMATED Routine 01/16/2019 5:20 R esults for this AM EDT procedure are i n the results section. HC CBC,PLT & AUTO DIFF Routine 01/16/2019 5:20 AM EDT HC VENIPUNCTURE Routine 01/15/2019 4:39 Results f or this AM EDT procedure are i n the results section. SCAN, PERIPHERAL BLOOD Routine 01/15/2019 4:39 Re sults for this AM EDT procedure are i n the results section. HEMOGRAM Routine 01/15/2019 4:39 Results for this AM EDT procedure are i n the results section. DIFFERENTIAL, AUTOMATED Routine 01/15/2019 4:39 R esults for this AM EDT procedure are i n the results section. HC CBC,PLT & AUTO DIFF Routine 01/15/2019 4:39 AM EDT CARDIAC CATHETERIZATION Routine 01/14/2019 2:29 R esults for this PM EDT procedure are i n the results section. HC VENIPUNCTURE Routine 01/14/2019 3:42 Results f or this AM EDT procedure are i n the results section. HEMOGRAM Routine 01/14/2019 3:42 Results for this AM EDT procedure are i n the results section. DIFFERENTIAL, AUTOMATED Routine 01/14/2019 3:42 R esults for this AM EDT procedure are i n the results section. HC CBC,PLT & AUTO DIFF Routine 01/14/2019 3:42 AM EDT HC VENIPUNCTURE Routine 01/13/2019 4:56 Results f or this AM EDT procedure are i n the results section. HEMOGRAM Routine 01/13/2019 4:56 Results for this AM EDT procedure are i n the results section. DIFFERENTIAL, AUTOMATED Routine 01/13/2019 4:56 R esults for this AM EDT procedure are i n the results section. HC CBC,PLT & AUTO DIFF Routine 01/13/2019 4:56 AM EDT POCT GLUCOSE Routine 01/12/2019 11:28 Results for this AM EDT procedure are i n the results section. HC VENIPUNCTURE Routine 01/12/2019 5:44 Results f or this AM EDT procedure are i n the results section. HEMOGRAM Routine 01/12/2019 5:44 Results for this AM EDT procedure are i n the results section. DIFFERENTIAL, AUTOMATED Routine 01/12/2019 5:44 R esults for this AM EDT procedure are i n the results section. HC CBC,PLT & AUTO DIFF Routine 01/12/2019 5:44 AM EDT HC OSMOLALITY Routine 01/12/2019 5:44 Results for this AM EDT procedure are i n the results section. MAGNESIUM Routine 01/12/2019 5:44 Results for this AM EDT procedure are i n the results section. EKG 12-LEAD Routine 01/12/2019 1:25 Acute on chronic Results for this AM EDT systolic heart procedure are in failure the results section. HC UREA NITROGEN, URINE Routine 01/11/2019 9:28 R esults for this 24 HR PM EDT procedure are i n the results section. ELECTROLYTES, URINE, Routine 01/11/2019 9:28 Resu lts for this RANDOM PM EDT procedure are i n the results section. HC RANDOM URINE PEP Routine 01/11/2019 9:28 Resul ts for this PM EDT procedure are i n the results section. HC OSMOLALITY URINE Routine 01/11/2019 9:28 Resul ts for this PM EDT procedure are i n the results section. NUCLEAR PHARMACOLOGIC Routine 01/11/2019 12:03 STRESS CARDIOLOGY PM EDT HC VENIPUNCTURE Timed 01/11/2019 12:03 Results for this PM EDT procedure are i n the results section. NM PHARMACOLOGIC STRESS Routine 01/11/2019 11:[address] COMPONENT AM EDT procedure are i n the results section. NM PHARMACOLOGIC STRESS Routine 01/11/2019 10:55 Results for this AND REST MYOCARDIAL AM EDT procedur e are in PERFUSION the results section. EKG 12-LEAD Routine 01/11/2019 7:05 Chest pain, Results for this AM EDT unspecified type procedure a re in the results section. HC UNFRACTIONATED STAT 01/11/2019 4:55 Results for this HEPARIN (HEP UFH) AM EDT procedure are in the results section. BMP W/FASTING GLUCOSE Routine 01/11/2019 4:55 Res ults for this AM EDT procedure are i n the results section. HEMOGRAM Routine 01/11/2019 4:55 Results for this AM EDT procedure are i n the results section. DIFFERENTIAL, AUTOMATED Routine 01/11/2019 4:55 R esults for this AM EDT procedure are i n the results section. HC CBC,PLT & AUTO DIFF Routine 01/11/2019 4:55 AM EDT HC UNFRACTIONATED STAT 01/10/2019 10:02 Result s for this HEPARIN (HEP UFH) PM EDT procedure are in the results section. MAGNESIUM Routine 01/10/2019 6:10 Results for this PM EDT procedure are i n the results section. HC VENIPUNCTURE Routine 01/10/2019 6:10 Results f or this PM EDT procedure are i n the results section. HC VENIPUNCTURE STAT 01/10/2019 3:55 Results f or this PM EDT procedure are i n the results section. RENAL ARTERY DUPLEX, Routine 01/10/2019 10:05 Renal artery Res ults for this UNIL AM EDT stenosis procedure are i n the results section. HC UNFRACTIONATED STAT 01/10/2019 7:58 Results for this HEPARIN (HEP UFH) AM EDT procedure are in the results section. EKG 12-LEAD Routine 01/10/2019 6:59 Chest pain, Results for this AM EDT unspecified type procedure a re in the results section. HC VENIPUNCTURE STAT 01/10/2019 12:51 Results for this AM EDT procedure are i n the results section. BMP W/FASTING GLUCOSE Routine 01/10/2019 12:51 Re sults for this AM EDT procedure are i n the results section. HEMOGRAM Routine 01/10/2019 12:51 Results for this AM EDT procedure are i n the results section. DIFFERENTIAL, AUTOMATED Routine 01/10/2019 12:51 Results for this AM EDT procedure are i n the results section. HC CBC,PLT & AUTO DIFF Routine 01/10/2019 12:51 AM EDT PRO-BRAIN NATRIURETIC Routine 01/10/2019 12:51 Re sults for this PEPTIDE AM EDT procedure are i n the results section. HC UNFRACTIONATED STAT 01/09/2019 7:06 Results for this HEPARIN (HEP UFH) PM EDT procedure are in the results section. HC MAGNESIUM, SERUM Timed 01/09/2019 7:06 Resul ts for this PM EDT procedure are i n the results section. HC VENIPUNCTURE Routine 01/09/2019 7:06 Results f or this PM EDT procedure are i n the results section. HC IMMUNOGLOBULIN FREE Routine 01/09/2019 12:44 R esults for this LIGHT CHAINS, SERUM PM EDT procedur e are in the results section. HC LYME DISEASE, LAURA Routine 01/09/2019 12:44 R esults for this PM EDT procedure are i n the results section. HC HERPES TYPE I AB, Routine 01/09/2019 12:44 Res ults for this IGG PM EDT procedure are i n the results section. HC HEPATITIS C ANTIBODY Routine 01/09/2019 12:44 Results for this PM EDT procedure are i n the results section. HC CMV AB IGM Routine 01/09/2019 12:44 Results fo r this PM EDT procedure are i n the results section. HC IRON BINDING Routine 01/09/2019 12:44 Results for this CAPACITY PM EDT procedure are i n the results section. HC PCH PARVOVIRUS B19 Routine 01/09/2019 12:44 Re sults for this PM EDT procedure are i n the results section. HC HEPATITIS A, TOTAL Routine 01/09/2019 12:44 Re sults for this PM EDT procedure are i n the results section. HC HEPATITIS B CORE AB Routine 01/09/2019 12:44 R esults for this PM EDT procedure are i n the results section. HC VITAMIN D TOTAL-25 Routine 01/09/2019 12:44 Re sults for this HYDROXY PM EDT procedure are i n the results section. HC HIV SCREEN, 4TH Routine 01/09/2019 12:44 Resul ts for this GENERATION PM EDT procedure are i n the results section. HC HEPATITIS B SURFACE Routine 01/09/2019 12:44 R esults for this AB PM EDT procedure are i n the results section. HC HEPATITIS B SURFACE Routine 01/09/2019 12:44 R esults for this AG PM EDT procedure are i n the results section. HC CMV AB IGG Routine 01/09/2019 12:44 Results fo r this PM EDT procedure are i n the results section. HC ESR-SEDIMENTATION Routine 01/09/2019 12:44 Res ults for this RATE, BLOOD PM EDT procedure are i n the results section. HC RHEUMATOID FACTOR Routine 01/09/2019 12:44 Res ults for this PM EDT procedure are i n the results section. HC ANTINUCLEAR Routine 01/09/2019 12:44 Results f or this ANTIBODY,SERUM PM EDT procedure are in the results section. HC FREE T3 LEVEL Routine 01/09/2019 12:44 Results for this PM EDT procedure are i n the results section. HC VENIPUNCTURE Routine 01/09/2019 12:44 Results for this PM EDT procedure are i n the results section. HC SERUM PROT. Routine 01/09/2019 12:44 Results f or this ELECTROPHORESIS PM EDT procedure ar e in the results section. HC FOLATE, SERUM Routine 01/09/2019 12:44 Results for this PM EDT procedure are i n the results section. HC FERRITIN, SERUM Routine 01/09/2019 12:44 Resul ts for this PM EDT procedure are i n the results section. HC VITAMIN B12 SERUM Routine 01/09/2019 12:44 Res ults for this PM EDT procedure are i n the results section. HC VENIPUNCTURE Routine 01/09/2019 9:43 Results f or this AM EDT procedure are i n the results section. EKG 12-LEAD Routine 01/09/2019 8:39 Chest pain, Results for this AM EDT unspecified type procedure a re in the results section. HC UNFRACTIONATED STAT 01/09/2019 2:34 Results for this HEPARIN (HEP UFH) AM EDT procedure are in the results section. BMP W/FASTING GLUCOSE Routine 01/09/2019 2:34 Res ults for this AM EDT procedure are i n the results section. HEMOGRAM Routine 01/09/2019 2:34 Results for this AM EDT procedure are i n the results section. DIFFERENTIAL, AUTOMATED Routine 01/09/2019 2:34 R esults for this AM EDT procedure are i n the results section. HC CBC,PLT & AUTO DIFF Routine 01/09/2019 2:34 AM EDT T4, FREE Routine 01/09/2019 2:34 Results for this AM EDT procedure are i n the results section. HC MAGNESIUM, SERUM Routine 01/09/2019 2:34 Resul ts for this AM EDT procedure are i n the results section. HC VENIPUNCTURE STAT 01/08/2019 7:01 Results f or this PM EDT procedure are i n the results section. HC VENIPUNCTURE STAT 01/08/2019 12:51 Results for this PM EDT procedure are i n the results section. HC TROPONIN T STAT 01/08/2019 12:51 Results fo r this PM EDT procedure are i n the results section. TSH Routine 01/08/2019 12:51 Results for this PM EDT procedure are i n the results section. MAGNESIUM Routine 01/08/2019 12:51 Results for this PM EDT procedure are i n the results section. HC CREATINE Routine 01/08/2019 12:51 Results for this PHOSPHOKINASE, SERUM PM EDT procedu re are in the results section. ELECTROLYTES PANEL Routine 01/08/2019 12:51 Resul ts for this PM EDT procedure are i n the results section. HEMOGRAM Routine 01/08/2019 10:02 Results for this AM EDT procedure are i n the results section. DIFFERENTIAL, AUTOMATED Routine 01/08/2019 10:02 Results for this AM EDT procedure are i n the results section. HC CBC,PLT & AUTO DIFF Routine 01/08/2019 10:02 AM EDT HC VENIPUNCTURE STAT 01/08/2019 10:02 Results for this AM EDT procedure are i n the results section. ECHOCARDIOGRAM COMPLETE Routine 01/08/2019 9:14 Chest pain, R esults for this W CONTRAST AM EDT unspecified type procedure are in Abdominal aortic the results aneurysm (AAA) section. without rupture Dyspnea, unspecified type HC TROPONIN T STAT 01/08/2019 3:35 Results for this AM EDT procedure are i n the results section. LIPASE STAT 01/08/2019 3:35 Results for this AM EDT procedure are i n the results section. GOLD TUBE HOLD STAT 01/08/2019 12:04 Results f or this AM EDT procedure are i n the results section. BLUE TUBE HOLD STAT 01/08/2019 12:04 Results f or this AM EDT procedure are i n the results section. LAVENDER TUBE HOLD STAT 01/08/2019 12:04 Resul ts for this AM EDT procedure are i n the results section. HC TROPONIN T STAT 01/08/2019 12:04 Results fo r this AM EDT procedure are i n the results section. PRO-BRAIN NATRIURETIC STAT 01/08/2019 12:04 Re sults for this PEPTIDE AM EDT procedure are i n the results section. CK STAT 01/08/2019 12:04 Results for this AM EDT procedure are i n the results section. BASIC METABOLIC PANEL STAT 01/08/2019 12:04 Re sults for this (NON-FASTING) AM EDT procedure are in the results section. EKG 12-LEAD STAT 01/07/2019 10:51 Results for this PM EDT procedure are i n the results section. HEMOGRAM STAT 01/07/2019 9:59 Results for this PM EDT procedure are i n the results section. DIFFERENTIAL, AUTOMATED STAT 01/07/2019 9:59 R esults for this PM EDT procedure are i n the results section. BLUE TUBE HOLD STAT 01/07/2019 9:59 Results fo r this PM EDT procedure are i n the results section. HC CBC,PLT & AUTO DIFF STAT 01/07/2019 9:59 PM EDT TROPONIN STAT 01/07/2019 9:59 Results for this PM EDT procedure are i n the results section. LIPASE STAT 01/07/2019 9:59 Results for this PM EDT procedure are i n the results section. HEPATIC FUNCTION PANEL STAT 01/07/2019 9:59 Re sults for this PM EDT procedure are i n the results section. BASIC METABOLIC PANEL STAT 01/07/2019 9:59 Res ults for this (NON-FASTING) PM EDT procedure are in the results section. EKG 12-LEAD STAT 01/07/2019 9:27 Results for this PM EDT procedure are i n the results section. documented in this encounter Results AAA Duplex, Complete/Bilateral (10/05/2019 10:04 AM EDT) Component Value Ref Test Analysis Performed At [facility] Range Method Time Signature VB Text Department: Vascular Surgery Lab VASCUBASE Report Patient: [id number] (PRETTY HARMON) CPT: 46848 ICD10: I71.4 Referring Physician: GREYSON JOLLY ?? Indications: Patient with known AAA, ? [...] da tabase for comparison. Electronically Signed by: UNIQUE MOODY on 2019-10-05 11:33 :36 AM VB Text End of Report VASCUBASE Report Specimen (Source) Anatomical Collection Method Collection Time Re ceived Time Location / / Volume Laterality 10/05/2019 10:04 AM EDT Greyson Jolly MD VASCULAR ORDERABLES Performing Organization Address City/State/ZIP Code Phon e Number VASCUBASE EKG 12 Lead (01/20/2019 7:10 AM EDT) Component Value Ref Range Test Analysis Performed Pathologis t Method Time At Signature Ventricular rate 69 BPM MUSE SYSTEM Atrial Rate 69 BPM MUSE SYSTEM P-R Interval 160 ms MUSE SYSTEM QRS Duration 94 ms MUSE SYSTEM Q-T Interval 414 ms MUSE SYSTEM QTC Calculated 443 ms MUSE SYSTEM (Bezet) Calculated P Cecil 66 degrees MUSE SYSTEM Calculated R Cecil -2 degrees MUSE SYSTEM Calculated T Cecil 36 degrees MUSE SYSTEM INTERPRETATION Normal sinus rhythm MUSE SYSTEM Biatrial enlargement Left ventricular hypertrophy with repolarization abnormality Abnormal ECG When compared with ECG of 19-JAN-2019 07:11, No significant change was found Confirmed by MD PHYLLIS, KENY ([id number]) on 01/20/2019 7:30:43 AM Specimen Anatomical Collection Method Collection Time Receive d Time (Source) Location / / Volume Laterality 01/20/2019 7:10 AM 7:30 EDT AM EDT Whitney Kaplan [facility] TECH ECG ORDERABLES Performing Organization Address City/State/ZIP Code Phon e Number MUSE SYSTEM (ABNORMAL) Differential, Automated (01/20/2019 4:29 AM EDT) P athologist Signature Neutrophils % 56.6 % [facility] Neutr Abs (ANC) 3.99 1.70 - [facility] 6.10 [facility] x10(3)/[facility] LABORATORY Lymphocytes % 23.5 % [facility] Lymphocytes Abs 1.7 0.9 - 3.2 [facility] x10(3)/[facility] LABORATORY Monocytes % 11.9 % [facility] Monocyte Abs 0.8 0.3 - 0.9 [facility] x10(3)/[facility] LABORATORY Eosinophils % 6.4 % [facility] Eosinophils Abs 0.4 0.0 - 0.4 [facility] x10(3)/[facility] LABORATORY Basophils % 0.9 % [facility] Basophils Abs 0.1 0.0 - 0.1 [facility] x10(3)/[facility] LABORATORY Immature Gran % 0.70 % [facility] Comment: Immature granulocytes(IG's)percentage an d absolute count will include metamyelocytes, myelocytes, and promyelo cytes. Blood smears from CBCs yielding IG's will be scanned manually for concor dance. If this scan disagrees with the automated IG or if promyelocytes are not ed, a manual differential will be performed. Blanca Gran Abs 0.05 (H) 0.00 - 0.04 x10(3)/[facility] LABORATORY Specimen Anatomical Collection Method Collection Time Receive d Time (Source) Location / / Volume Laterality Blood specimen 01/20/2019 4:29 AM 019 4:40 (specimen) EDT AM EDT Resulting Agency Comment Spec In Lab [facility] HEMATOLOGY ORDERABLES Performing Organization Address City/State/ZIP Code [place] [address] (ABNORMAL) Hemogram (01/20/2019 4:29 AM EDT) Analysis Performed At Patho logist Time Signature WBC 7.0 4.0 - 9.5 [facility] LABORATORY RBC 4.10 4.00 - [facility] 5.21 [facility] x10(6)/[facility] LABORATORY Hemoglobin 12.7 11.7 - [facility] 15.5 gm/dL [facility] Hematocrit 36.8 35.7 - [place] [facility] 45.8 % [facility] MCV 89.8 82.6 - [facility] 94.4 [facility] LABORATORY MCH 31.0 27.1 - [place] 32.0 pg [facility] LAB[facility]ORY MCHC 34.5 31.7 - [facility] 35.0 gm/dL [facility] Platelets 271 145 - 357 [facility] x10(3)/[facility] LABORATORY RDWSD 49.2 (H) 37.0 - [facility] TAMARA 46.0 [facility] LABORATORY RDWCV 15.6 (H) 11.5 - [facility] TAMARA 14.1 % [facility] LABORATORY MPV 12.1 7.6 - 12.9 [facility] nRBC % Auto 0.0 % [facility] nRBC Abs Auto 0.000 0.000 - [place] 0.000 [facility] x10(3)/[facility] LABORATORY Specimen Anatomical Collection Method Collection Time Receive d Time (Source) Location / / Volume Laterality Blood specimen 01/20/2019 4:29 AM 019 4:40 (specimen) EDT AM EDT Resulting Agency Comment Spec In Lab [facility] HEMATOLOGY ORDERABLES Performing Organization Address City/State/ZIP Code [place] [address] Magnesium (01/20/2019 4:29 AM EDT) P athologist Signature Magnesium 1.01 0.69 - 1.07 [facility] mmol/L [facility] Specimen Anatomical Collection Method Collection Time Receive d Time (Source) Location / / Volume Laterality Blood specimen 01/20/2019 4:29 AM 019 4:40 (specimen) EDT AM EDT Resulting Agency Comment Spec In Lab Thomas Terrazas II, MD CHEMISTRY ORDERABLES Performing Organization Address City/State/ZIP Code [place] [address] (ABNORMAL) BMP w/fasting Glucose (01/20/2019 4:29 AM EDT) athologist Signature Glucose 97 65 - 99 [facility] Fasting mg/dL [facility] Comment: ?Fasting* Glucose Interpretive C riteria Normal ?65-99 mg/dL Impaired Fasting glucose ?100-125 mg/dL Consistent with Diabetes Mellitus ? >or= 126 mg/dL *Fasting is defined as no caloric intake for at least 8 hours In the absence of unequivocal hypergly cemia a plasma glucose value of >or= 126 mg/dL should be repeated on a subseq uent day. Diagnosis and Classification of Diabetes Mellitus, Position Statement from the [place] [employer]. ??Diabete s Care, Volume 33, Supplement 1, Apr 2009 BUN 74 (H) 8 - 18 mg/dL [facility] Creatinine 3.02 (H) 0.70 - 1.20 mg/dL [facility] Sodium 125 (L) 135 - 145 mmol/L [facility] Potassium 4.0 3.5 - 5.0 mmol/L [facility] Comment: Please note: ??Patients with WBC >100,00 0 may have falsely elevated Potassium levels. ??For accurate Potassium quantif ication in these patients send serum separator tube (gold top) for subsequent determinations. ??Contact the Clinical Chemistry Laboratory if there are any qu estions. Chloride 83 (L) 98 - 107 mmol/L [facility] CO2 25 22 - 31 mmol/L [facility] Anion Gap 17 (H) 5 - 15 mmol/L [facility] Calcium 9.8 8.5 - 10.5 mg/dL [facility] Estimated GFR 15 (L) >=60 mL/min/1.73 m?? [facility] Comment: The eGFR was calculated using the CKD-EP I equation. As with all creatinine based estimates of kidney function, eGFR values calculated with the CKD-EPI equation are not accurate in patients wi th acute kidney failure, extremes of body mass or the acutely ill. [email or web address] e[facility] 17 (L) >=60 mL/min/1.73 m?? [facility] Comment: The eGFR was calculated using the CKD-EP I equation. As with all creatinine based estimates of kidney function, eGFR values calculated with the CKD-EPI equation are not accurate in patients wi th acute kidney failure, extremes of body mass or the acutely ill. [email or web address] Specimen Anatomical Collection Method Collection Time Receive d Time (Source) Location / / Volume Laterality Blood specimen 01/20/2019 4:29 AM 019 4:40 (specimen) EDT AM EDT Resulting Agency Comment Spec In Lab Thomas Terrazas II, MD CHEMISTRY ORDERABLES Performing Organization Address City/State/ZIP Code [place] [address] EKG 12 Lead (01/19/2019 7:11 AM EDT) Component Value Ref Range Test Analysis Performed Pathologis t Method Time At Signature Ventricular rate 62 BPM MUSE SYSTEM Atrial Rate 62 BPM MUSE SYSTEM P-R Interval 156 ms MUSE SYSTEM QRS Duration 94 ms MUSE SYSTEM Q-T Interval 428 ms MUSE SYSTEM QTC Calculated 434 ms MUSE SYSTEM (Bezet) Calculated P Cecil 76 degrees MUSE SYSTEM Calculated R Cecil 14 degrees MUSE SYSTEM Calculated T Cecil 99 degrees MUSE SYSTEM INTERPRETATION Normal sinus rhythm MUSE SYSTEM Possible Left atrial enlargement Left ventricular hypertrophy ST & T wave abnormality, consider inferolateral ischemia Poor R-wave progression Abnormal ECG When compared with ECG of 18-JAN-2019 07:18, QT has shortened Confirmed by Brent Guevara MD ([id number]) on 01/19/2019 7:44:37 AM Specimen Anatomical Collection Method Collection Time Receive d Time (Source) Location / / Volume Laterality 01/19/2019 7:11 AM 9 7:44 EDT AM EDT Whitney Kaplan [facility] TECH ECG ORDERABLES Performing Organization Address City/State/ZIP Code Phon e Number MUSE SYSTEM (ABNORMAL) Differential, Automated (01/19/2019 5:18 AM EDT) [facility] Method Time Signature Neutrophils % 58.5 % [facility] Neutr Abs (ANC) 4.76 1.70 - [facility] 6.10 [facility] x10(3)/[facility] LABORATORY Lymphocytes % 17.5 % [facility] Lymphocytes Abs 1.4 0.9 - 3.2 [facility] x10(3)/[facility] LABORATORY Monocytes % 16.0 % [facility] Monocyte Abs 1.3 (H) 0.3 - 0.9 [facility] x10(3)/[facility] LABORATORY Eosinophils % 6.6 % [facility] Eosinophils Abs 0.5 (H) 0.0 - 0.4 [facility] x10(3)/[facility] LABORATORY Basophils % 1.0 % [facility] Basophils Abs 0.1 0.0 - 0.1 [facility] x10(3)/[facility] LABORATORY Immature Gran % 0.40 % [facility] Comment: Immature granulocytes(IG's)percentage an d absolute count will include metamyelocytes, myelocytes, and promyelo cytes. Blood smears from CBCs yielding IG's will be scanned manually for concor dance. If this scan disagrees with the automated IG or if promyelocytes are not ed, a manual differential will be performed. Blanca Gran Abs 0.03 0.00 - 0.04 x10(3)/[facility] LAB[facility] Specimen Anatomical Collection Method Collection Time Receive d Time (Source) Location / / Volume Laterality Blood specimen 01/19/2019 5:18 AM 019 5:30 (specimen) EDT AM EDT Resulting Agency Comment Spec In Lab [facility] HEMATOLOGY ORDERABLES Performing Organization Address City/State/ZIP Code [place] [address] (ABNORMAL) Hemogram (01/19/2019 5:18 AM EDT) Analysis Performed At Patho logist Time Signature WBC 8.1 4.0 - 9.5 [facility] x10(3)/[facility] LABORATORY RBC 3.85 (L) 4.00 - [facility] 5.21 [facility] x10(6)/[facility] LABORATORY Hemoglobin 11.7 11.7 - [facility] 15.5 gm/dL [facility]ORY Hematocrit 33.7 (L) 35.7 - [facility] 45.8 % [facility] MCV 87.5 82.6 - [facility] 94.4 [facility] LABORATORY MCH 30.4 27.1 - [place] [place] 32.0 pg [facility] LABORATORY MCHC 34.7 31.7 - [facility] 35.0 gm/dL [facility] LAB[facility]ORY Platelets 250 145 - 357 [facility] x10(3)/[facility] LABORATORY RDWSD 48.6 (H) 37.0 - [facility] TAMARA 46.0 [facility] LABORATORY RDWCV 15.8 (H) 11.5 - [facility] TAMARA 14.1 % [facility] LABORATORY MPV 12.3 7.6 - 12.9 [facility] LABORATORY nRBC % Auto 0.0 % [facility] nRBC Abs Auto 0.000 0.000 - [place] 0.000 [facility] x10(3)/[facility] LABORATORY Specimen Anatomical Collection Method Collection Time Receive d Time (Source) Location / / Volume Laterality Blood specimen 01/19/2019 5:18 AM 019 5:30 (specimen) EDT AM EDT Resulting Agency Comment Spec In Lab [facility]IRK HEMATOLOGY ORDERABLES Performing Organization Address City/State/ZIP Code Phon e Number [address] Magnesium (01/19/2019 5:18 AM EDT) P athologist Signature Magnesium 0.98 0.69 - 1.07 [facility] mmol/L [facility] LABORATORY Specimen Anatomical Collection Method Collection Time Receive d Time (Source) Location / / Volume Laterality Blood specimen 01/19/2019 5:18 AM 019 5:30 (specimen) EDT AM EDT Resulting Agency Comment Spec In Lab Thomas Terrazas II, MD CHEMISTRY ORDERABLES Performing Organization Address City/State/ZIP Code [place] [address] (ABNORMAL) BMP w/fasting Glucose (01/19/2019 5:18 AM EDT) athologist Signature Glucose 100 (H) 65 - 99 [facility] Fasting mg/dL [facility] Comment: ?Fasting* Glucose Interpretive C riteria Normal ?65-99 mg/dL Impaired Fasting glucose ?100-125 mg/dL Consistent with Diabetes Mellitus ? >or= 126 mg/dL *Fasting is defined as no caloric intake for at least 8 hours In the absence of unequivocal hypergly cemia a plasma glucose value of >or= 126 mg/dL should be repeated on a subseq uent day. Diagnosis and Classification of Diabetes Mellitus, Position Statement from the [employer] [employer]. ??Diabete s Care, Volume 33, Supplement 1, Apr 2009 BUN 77 (H) 8 - 18 mg/dL [facility] Creatinine 3.33 (H) 0.70 - 1.20 mg/dL [facility] Sodium 124 (L) 135 - 145 mmol/L [facility] Potassium 4.3 3.5 - 5.0 mmol/L [facility] Comment: Please note: ??Patients with WBC >100,00 0 may have falsely elevated Potassium levels. ??For accurate Potassium quantif ication in these patients send serum separator tube (gold top) for subsequent determinations. ??Contact the Clinical Chemistry Laboratory if there are any qu estions. Chloride 84 (L) 98 - 107 mmol/L [facility] CO2 24 22 - 31 mmol/L [facility] Anion Gap 16 (H) 5 - 15 mmol/L [facility] Calcium 9.1 8.5 - 10.5 mg/dL [facility] Estimated GFR 13 (L) >=60 mL/min/1.73 m?? [facility] Comment: The eGFR was calculated using the CKD-EP I equation. As with all creatinine based estimates of kidney function, eGFR values calculated with the CKD-EPI equation are not accurate in patients wi th acute kidney failure, extremes of body mass or the acutely ill. [email or web address] eGFR 15 (L) >=60 mL/min/1.73 m?? [facility] Comment: The eGFR was calculated using the CKD-EP I equation. As with all creatinine based estimates of kidney function, eGFR values calculated with the CKD-EPI equation are not accurate in patients wi th acute kidney failure, extremes of body mass or the acutely ill. [email or web address] Specimen Anatomical Collection Method Collection Time Receive d Time (Source) Location / / Volume Laterality Blood specimen 01/19/2019 5:18 AM 019 5:30 (specimen) EDT AM EDT Resulting Agency Comment Spec In Lab Thomas Terrazas II, MD CHEMISTRY ORDERABLES Performing Organization Address City/State/[place] [address] MRI Cardiac Morph Func wwo Contrast (01/18/2019 12:51 PM EDT) Anatomical Region Laterality Modality Magnetic Resonance Specimen (Source) Anatomical Location Collection Method / Collectio n Time Received Time / Laterality Volume Impressions 01/18/2019 1:59 PM EDT 1. ??Severely reduced left ventricular systolic function quantitated at 25%. Dilated left ventricle with concentric l eft ventricular hypertrophy. 2. ??Preserved right ventricular size an d function 3. ??Septal mid myocardial enhancement c onsistent with diagnosis of cardiomyopathy. No other enhancement to suggest previous infarct, myocarditis, or infiltrative disease of the left or r ight ventricles. Thank you for letting us participate in the care of this patient. For questions regarding this report, please contact th e number below. ? Narrative 01/18/2019 1:59 PM EDT EXAMINATION: MRI CARDIAC MORPH FUNC WWO CONTRAST CLINICAL HISTORY: new systolic heart tammie lure, EF 25% COMPARISON: None TECHNIQUE: Cardiac MRI with and without IV contrast IV CONTRAST: 12 mL Dotarem. Risks and be nefits of contrast administration were discussed with patient prior to administ ration. FUNCTIONAL ANALYSIS: LEFT VENTRICLE: Myocardial mass 156 g End-diastolic volume 183.9 mL End-systolic volume 137.3 mL Stroke volume 46.6 mL Ejection fraction 25% Mass index: 129.3 g/sq m End-diastolic volume index 152 mL/sq m 3 chamber end-diastolic width 4.7 cm 3 chamber septal thickness 1.2 cm 3 chamber inferolateral wall thickness 1 .1 cm RIGHT VENTRICLE: End-diastolic volume 104 mL End-systolic volume 44 mL Stroke volume 60 mL Ejection fraction 58% End-diastolic volume index 86 mL/sq m FINDINGS: Chambers: At rest, the left ventricle is dilated b y volume index and demonstrates mild concentric left ventricular hypertrophy. Systolic function is severely reduced, with global hypokinesis. Left ventricula r ejection fraction is quantified at 25%. The right ventricle is normal in si ze and function. Quantitated right ventricular ejection fraction is 58%. Th ere are no right ventricular regional wall motion abnormalities present. The a ortic root appears normal in size. A trivial pericardial effusion is present. The left and right atrium are not well visualized but appear grossly normal in size. Interventricular and interatrial septum appear intact. Valves: The mitral valve demonstrates thickened leaflet tips but no stenosis. Trace regurgitation is noted. The aortic valve appears normal in structure and function without stenosis or regurgitati on noted. The pulmonic valve is not visualized the tricuspid valve appears n ormal in structure and function with trace tricuspid insufficiency and no cornelius nosis present. Resting perfusion: Resting perfusion was performed in 3 [address] axis and one long axis plane. There were no resting perfusion defects to sug gest previous infarct or resting myocardial ischemia. [employer] Sales Engineer: [employer] Sales Engineer demonstrates normal nulling seq uences. Delayed enhancement: Delayed enhancement was performed in bot h long and short axis planes. Septal mid myocardial enhancement is noted in the b asilar segments to the mid segments. There is no other delayed enhancement to suggest previous infarct or infiltrative disease of the left or righ t ventricles. ??The mid myocardial septal enhancement appears nonspecific, commonl y seen in dilated ventricles with reduced function. Extra cardiac: Extracardiac imaging performed for the p urposes of cardiac planning only. The aorta appears grossly normal in course a nd caliber. No pleural effusions are noted. Procedure Note Gerard Bo MD - 01/18/2019Formatt ing of this note might be different from the original. EXAMINATION: MRI CARDIAC MORPH FUNC WWO CONTRAST CLINICAL HISTORY: new systolic heart tammie lure, EF 25% COMPARISON: None TECHNIQUE: Cardiac MRI with and without IV contrast IV CONTRAST: 12 mL Dotarem. Risks and be nefits of contrast administration were discussed with patient prior to administ ration. FUNCTIONAL ANALYSIS: LEFT VENTRICLE: Myocardial mass 156 g End-diastolic volume 183.9 mL End-systolic volume 137.3 mL Stroke volume 46.6 mL Ejection fraction 25% Mass index: 129.3 g/sq m End-diastolic volume index 152 mL/sq m 3 chamber end-diastolic width 4.7 cm 3 chamber septal thickness 1.2 cm 3 chamber inferolateral wall thickness 1 .1 cm RIGHT VENTRICLE: End-diastolic volume 104 mL End-systolic volume 44 mL Stroke volume 60 mL Ejection fraction 58% End-diastolic volume index 86 mL/sq m FINDINGS: Chambers: At rest, the left ventricle is dilated b y volume index and demonstrates mild concentric left ventricular hypertrophy. Systolic function is severely reduced, with global hypokinesis. Left ventricula r ejection fraction is quantified at 25%. The right ventricle is normal in si ze and function. Quantitated right ventricular ejection fraction is 58%. Th ere are no right ventricular regional wall motion abnormalities present. The a ortic root appears normal in size. A trivial pericardial effusion is present. The left and right atrium are not well visualized but appear grossly normal in size. Interventricular and interatrial septum appear intact. Valves: The mitral valve demonstrates thickened leaflet tips but no stenosis. Trace regurgitation is noted. The aortic valve appears normal in structure and function without stenosis or regurgitati on noted. The pulmonic valve is not visualized the tricuspid valve appears n ormal in structure and function with trace tricuspid insufficiency and no cornelius nosis present. Resting perfusion: Resting perfusion was performed in 3 rod[address]fo rt axis and one long axis plane. There were no resting perfusion defects to sug gest previous infarct or resting myocardial ischemia. [employer]: [employer] demonstrates normal nulling seq uences. Delayed enhancement: Delayed enhancement was performed in bot h long and short axis planes. Septal mid myocardial enhancement is noted in the b asilar segments to the mid segments. There is no other delayed enhancement to suggest previous infarct or infiltrative disease of the left or righ t ventricles. The mid myocardial septal enhancement appears nonspecific, commonl y seen in dilated ventricles with reduced function. Extra cardiac: Extracardiac imaging performed for the p urposes of cardiac planning only. The aorta appears grossly normal in course a nd caliber. No pleural effusions are noted. IMPRESSION 1. Severely reduced left ventricular sys tolic function quantitated at 25%. Dilated left ventricle with concentric l eft ventricular hypertrophy. 2. Preserved right ventricular size and function 3. Septal mid myocardial enhancement con sistent with diagnosis of cardiomyopathy. No other enhancement to suggest previous infarct, myocarditis, or infiltrative disease of the left or r ight ventricles. Thank you for letting us participate in the care of this patient. For questions regarding this report, please contact e number below. Greg Mercedes [facility] TECH IMG MRI ORDERABLES EKG 12 Lead (01/18/2019 7:18 AM EDT) Component Value Ref Range Test Analysis Performed Pathologis t Method Time At Signature Ventricular rate 62 BPM MUSE SYSTEM Atrial Rate 62 BPM MUSE SYSTEM P-R Interval 158 ms MUSE SYSTEM QRS Duration 98 ms MUSE SYSTEM Q-T Interval 488 ms MUSE SYSTEM QTC Calculated 495 ms MUSE SYSTEM (Bezet) Calculated P Cecil 68 degrees MUSE SYSTEM Calculated R Cecil 3 degrees MUSE SYSTEM Calculated T Cecil -69 degrees MUSE SYSTEM INTERPRETATION Normal sinus rhythm MUSE SYSTEM Biatrial enlargement Left ventricular hypertrophy ST & T wave abnormality, consider inferolateral ischemia Prolonged QT Abnormal ECG When compared with ECG of 12-JAN-2019 01:25, T wave inversion less evident in Inferior leads Confirmed by Brent Guevara MD ([id number]) on 01/18/2019 3:31:22 PM Specimen Anatomical Collection Method Collection Time Receive d Time (Source) Location / / Volume Laterality 01/18/2019 7:18 AM 9 3:31 EDT PM EDT Whitney Sonia Kaplan APRN ECG ORDERABLES Performing Organization Address City/State/ZIP Code Phon e Number MUSE SYSTEM (ABNORMAL) Differential, Automated (01/18/2019 4:30 AM EDT) [facility] gist Method Time Signature Neutrophils % 58.3 % [facility] LABORATORY Neutr Abs (ANC) 4.38 1.70 - [facility] 6.10 [facility] x10(3)/[facility] LABORATORY Lymphocytes % 15.6 % [facility] Lymphocytes Abs 1.2 0.9 - 3.2 [facility] x10(3)/[facility] LABORATORY Monocytes % 18.9 % [facility] Monocyte Abs 1.4 (H) 0.3 - 0.9 [facility] x10(3)/[facility] LABORATORY Eosinophils % 5.9 % [facility] Eosinophils Abs 0.4 0.0 - 0.4 [facility] x10(3)/[facility] LABORATORY Basophils % 0.9 % [facility] Basophils Abs 0.1 0.0 - 0.1 [facility] x10(3)/[facility] LABORATORY Immature Gran % 0.40 % [facility] Comment: Immature granulocytes(IG's)percentage an d absolute count will include metamyelocytes, myelocytes, and promyelo cytes. Blood smears from CBCs yielding IG's will be scanned manually for concor dance. If this scan disagrees with the automated IG or if promyelocytes are not ed, a manual differential will be performed. Blanca Gran Abs 0.03 0.00 - 0.04 x10(3)/[facility] Specimen Anatomical Collection Method Collection Time Receive d Time (Source) Location / / Volume Laterality Blood specimen 01/18/2019 4:30 AM 019 4:57 (specimen) EDT AM EDT Resulting Agency Comment Spec In Lab Hiwot KIRK HEMATOLOGY ORDERABLES Performing Organization Address City/State/ZIP Code [place] [address] (ABNORMAL) Hemogram (01/18/2019 4:30 AM EDT) Analysis Performed At Patho logist Time Signature WBC 7.5 4.0 - 9.5 [facility](3[facility] LABORATORY RBC 3.73 (L) 4.00 - [place] [facility] 5.21 [facility] x10(6)/[facility] LABORATORY Hemoglobin 11.4 (L) 11.7 - [facility] 15.[facility] gm/dL [facility] Hematocrit 33.5 (L) 35.7 - [facility] 45.8 % [facility] LABORATORY MCV 89.8 82.6 - [facility] 94.4 [facility] LABORATORY MCH 30.6 27.1 - [place] [facility] 32.0 pg [facility] LABORATORY MCHC 34.0 31.7 - [facility] 35.0 gm/dL [facility] LABOR[facility]ORY Platelets 258 145 - 357 [facility] x10(3)/[facility] LABORATORY RDWSD 50.2 (H) 37.0 - [facility] 46.0 [facility] LABORATORY RDWCV 15.7 (H) 11.5 - [facility]ARA 14.1 % [facility] LABORATORY MPV 11.8 7.6 - 12.9 [facility] nRBC % Auto 0.0 % [facility] nRBC Abs Auto 0.000 0.000 - [facility] 0.000 [facility] x10(3)/[facility] LABORATORY Specimen Anatomical Collection Method Collection Time Receive d Time (Source) Location / / Volume Laterality Blood specimen 01/18/2019 4:30 AM 019 4:57 (specimen) EDT AM EDT Resulting Agency Comment Spec In Lab [facility] KIRK HEMATOLOGY ORDERABLES Performing Organization Address City/State/ZIP Code [place] [address] [facility] LABORATORY Drive Magnesium (01/18/2019 4:30 AM EDT) athologist Signature Magnesium 1.05 0.69 - 1.07 [facility] mmol/L [facility] LABORATORY Specimen Anatomical Collection Method Collection Time Receive d Time (Source) Location / / Volume Laterality Blood specimen 01/18/2019 4:30 AM 019 4:57 (specimen) EDT AM EDT Resulting Agency Comment Spec In Lab Thomas Terrazas II, MD CHEMISTRY ORDERABLES Performing Organization Address City/State/ZIP Code Phon e Number [place] [phone] [facility] LABORATORY Drive (ABNORMAL) BMP w/fasting Glucose (01/18/2019 4:30 AM EDT) athologist Signature Glucose 103 (H) 65 - 99 [facility] Fasting mg/dL [facility] Comment: ?Fasting* Glucose Interpretive C riteria Normal ?65-99 mg/dL Impaired Fasting glucose ?100-125 mg/dL Consistent with Diabetes Mellitus ? >or= 126 mg/dL *Fasting is defined as no caloric intake for at least 8 hours In the absence of unequivocal hypergly cemia a plasma glucose value of >or= 126 mg/dL should be repeated on a subseq u day. Diagnosis and Classification of Diabetes Mellitus, Position Statement from the [place] [employer]. ??Diabete s Care, Volume 33, Supplement 1, Apr 2009 BUN 77 (H) 8 - 18 mg/dL [facility] LABORATORY Creatinine 3.65 (H) 0.70 - 1.20 mg/dL [facility] LAB[facility] Sodium 120 (L) 135 - 145 mmol/L [facility] LABOR[facility]ORY Potassium 3.3 (L) 3.5 - 5.0 mmol/L [facility] Comment: Please note: ??Patients with WBC >100,00 0 may have falsely elevated Potassium levels. ??For accurate Potassium quantif ication in these patients send serum separator tube (gold top) for subsequent determinations. ??Contact the Clinical Chemistry Laboratory if there are any qu estions. Chloride 77 (L) 98 - 107 mmol/L [facility] CO2 25 22 - 31 mmol/L [facility] Anion Gap 18 (H) 5 - 15 mmol/L [facility] Calcium 9.1 8.5 - 10.5 mg/dL [facility]ORY Estimated GFR 12 (L) >=60 mL/min/1.73 m?? [facility] Comment: The eGFR was calculated using the CKD-EP I equation. As with all creatinine based estimates of kidney function, eGFR values calculated with the CKD-EPI equation are not accurate in patients wi th acute kidney failure, extremes of body mass or the acutely ill. [email or web address] eGFR 14 (L) >=60 mL/min/1.73 m?? [facility] Comment: The eGFR was calculated using the CKD-EP I equation. As with all creatinine based estimates of kidney function, eGFR values calculated with the CKD-EPI equation are not accurate in patients wi th acute kidney failure, extremes of body mass or the acutely ill. [email or web address] Specimen Anatomical Collection Method Collection Time Receive d Time (Source) Location / / Volume Laterality Blood specimen 01/18/2019 4:30 AM 019 4:57 (specimen) EDT AM EDT Resulting Agency Comment Spec In Lab Thomas Terrazas II, MD CHEMISTRY ORDERABLES Performing Organization Address City/State/[place] [address] Duplex Study Renal Arteries, Bilat (01/17/2019 7:37 AM EDT) Component Value Ref Test Analysis Performed At [facility] Range Method Time Signature VB Text Department: Vascular Surgery Lab VASCUBASE Report Patient: [id number] (PRETTY HARMON) CPT: 65038 ICD10: I70.1 Referring Physician: GREG MERCEDES ?? Indications: Right renal artery BPG, bilateral renal a rtery stenosis, rising creatinine, ? patency ICD10 Diagnosis Code: I70.1 Findings: Syl Renal Aorta ? PSV (cm/s): 82 ? EDV (cm/s): 15 ? RI: 0.82 Renal Artery Distal, Right ? PSV (cm/s): 88 ? EDV (cm/s): 14 ? RAR: 1.1 ? RI: 0.84 Mid Pole Renal Parenchyma, Right ? PSV (cm/s): 35 ? EDV (cm/s): 9 ? RI: 0.75 ? AT (ms): 50 Renal Hilum, Right ? AT (ms): 50 Kidney Length, Right ? Length (cm): 9.8 Renal Vein, Right ? Patent: Patent Renal Artery Ostium, Left ? PSV (cm/s): 195 ? EDV (cm/s): 23 ? RAR: 2.4 ? RI: 0.88 Renal Artery Proximal, Left ? PSV (cm/s): 172 ? EDV (cm/s): 21 ? RAR: 2.1 ? RI: 0.88 Renal Artery Mid, Left ? PSV (cm/s): 104 ? EDV (cm/s): 14 ? RAR: 1.3 ? RI: 0.87 Renal Artery Distal, Left ? PSV (cm/s): 79 ? EDV (cm/s): 14 ? RAR: 1.0 ? RI: 0.82 Mid Pole Renal Parenchyma, Left ? PSV (cm/s): 70 ? EDV (cm/s): 20 ? RI: 0.71 Renal Hilum, Left ? AT (ms): 60 Kidney Length, Left ? Length (cm): 9.4 Renal Vein, Left ? Patent: Patent Interpretation: Right: Patent distal pilot point main renal artery with no eviden ce of hemodynamically significant stenosis. Un able to visualize the bypass graft due to overlying bowel gas. No identifiable change compared to p revious exam. Left: Patent main renal artery with no e vidence of hemodynamically significant stenosis. Velocities at the proximal meagan al artery are just below threshold for >60% stenosis. Kidney length previously measured 10.4 cm on exam dated 08/30/2018. No significant change compared to previous exam. Previous Renal Studies: Date ? Right PSV - RAR ? Left PSV - RAR ? 320 ?3.37 ? 255 ?2. 68 ? 45 ? 1.15 ? 177 ?4. 54 ? 163 ?---- ? ---- ? --- - ? 37 ? ---- ? ---- ? --- - ? 59 ? 0.84 ? ---- ? --- - Current Exam ?? 88 ? 1.07 ? 195 ?2.3 8 Electronically Signed by: KYA YOO MD on 2019-01-18 12: 11:30 PM VB Text End of Report VASCUBASE Report Specimen (Source) Anatomical Collection Method Collection Time Re ceived Time Location / / Volume Laterality 01/17/2019 7:37 AM EDT Greg Mercedes [facility] TECH VASCULAR ORDERABLES Performing Organization Address City/State/ZIP Code Phon e Number VASCUBASE (ABNORMAL) Differential, Automated (01/17/2019 3:54 AM EDT) [facility] gist Method Time Signature Neutrophils % 68.9 % [facility] Neutr Abs (ANC) 5.73 1.70 - [facility] 6.10 [facility] x10(3)/[facility] LABORATORY Lymphocytes % 11.1 % [facility] Lymphocytes Abs 0.9 0.9 - 3.2 [facility] x10(3)/[facility] LABORATORY Monocytes % 16.0 % [facility] Monocyte Abs 1.3 (H) 0.3 - 0.9 [facility] x10(3)/[facility] LABORATORY Eosinophils % 2.9 % [facility] Eosinophils Abs 0.2 0.0 - 0.4 [facility] x10(3)/[facility] LABORATORY Basophils % 0.6 % [facility] Basophils Abs 0.0 0.0 - 0.1 [facility] x10(3)/[facility] LABORATORY Immature Gran % 0.50 % [facility] Comment: Immature granulocytes(IG's)percentage an d absolute count will include metamyelocytes, myelocytes, and promyelo cytes. Blood smears from CBCs yielding IG's will be scanned manually for concor dance. If this scan disagrees with the automated IG or if promyelocytes are not ed, a manual differential will be performed. Blanca Gran Abs 0.04 0.00 - 0.04 x10(3)/[facility] Specimen Anatomical Collection Method Collection Time Receive d Time (Source) Location / / Volume Laterality Blood specimen 01/17/2019 3:54 AM 019 4:13 (specimen) EDT AM EDT Resulting Agency Comment Spec In Lab Hi[facility] KIRK HEMATOLOGY ORDERABLES Performing Organization Address City/State/ZIP Code [place] [address] (ABNORMAL) Hemogram (01/17/2019 3:54 AM EDT) Analysis Performed At Patho logist Time Signature WBC 8.3 4.0 - 9.5 [facility] x10(3)/[facility] LABORATORY RBC 3.64 (L) 4.00 - [facility] 5.21 [facility] x10(6)/[facility] LABORATORY Hemoglobin 11.4 (L) 11.7 - [facility] 15.5 gm/dL [facility] LABORATORY Hematocrit 32.0 (L) 35.7 - [facility] 45.8 % [facility] LABORATORY MCV 87.9 82.6 - [facility] 94.4 [facility] LABORATORY MCH 31.3 27.1 - [facility] 32.0 pg [facility] LABORATORY MCHC 35.6 (H) 31.7 - [facility]ARA 35.0 gm/dL [facility] LABORATORY Platelets 243 145 - 357 [facility] x10(3)/[facility] LABORATORY RDWSD 49.1 (H) 37.0 - [place] [facility] 46.0 [facility] LABORATORY RDWCV 15.8 (H) 11.5 - [facility]ARA 14.1 % [facility] LABORATORY MPV 11.7 7.6 - 12.9 [facility] fL [facility] LABORATORY nRBC % Auto 0.0 % [facility] nRBC Abs Auto 0.000 0.000 - [facility] 0.000 [facility] x10(3)/[facility] LABORATORY Specimen Anatomical Collection Method Collection Time Receive d Time (Source) Location / / Volume Laterality Blood specimen 01/17/2019 3:54 AM 019 4:13 (specimen) EDT AM EDT Resulting Agency Comment Spec In Lab Hi[facility] KIRK HEMATOLOGY ORDERABLES Performing Organization Address City/[facility]/ZIP Code Phon e Number [address] Magnesium (01/17/2019 3:54 AM EDT) P athologist Signature Magnesium 0.96 0.69 - 1.07 [facility] mmol/L [facility] LABORATORY Specimen Anatomical Collection Method Collection Time Receive d Time (Source) Location / / Volume Laterality Blood specimen 01/17/2019 3:54 AM 019 4:13 (specimen) EDT AM EDT Resulting Agency Comment Spec In Lab Thomas Terrazas II, MD CHEMISTRY ORDERABLES Performing Organization Address City/[facility]/ZIP Code Phon e Number [address] (ABNORMAL) BMP w/fasting Glucose (01/17/2019 3:54 AM EDT) athologist Signature Glucose 114 (H) 65 - 99 [facility] Fasting mg/dL [facility] LABORATORY Comment: ?Fasting* Glucose Interpretive C riteria Normal ?65-99 mg/dL Impaired Fasting glucose ?100-125 mg/dL Consistent with Diabetes Mellitus ? >or= 126 mg/dL *Fasting is defined as no caloric intake for at least 8 hours In the absence of unequivocal hypergly cemia a plasma glucose value of >or= 126 mg/dL should be repeated on a subseq uent day. Diagnosis and Classification of Diabetes Mellitus, Position Statement from the [place] [employer]. ??Diabete s Care, Volume 33, Supplement 1, Apr 2009 BUN 69 (H) 8 - 18 mg/dL [facility]ORY Creatinine 3.86 (H) 0.70 - 1.20 mg/dL [facility] LAB[facility]ORY Sodium 120 (L) 135 - 145 mmol/L [facility] LAB[facility]ORY Potassium 3.7 3.5 - 5.0 mmol/L [facility] Comment: Please note: ??Patients with WBC >100,00 0 may have falsely elevated Potassium levels. ??For accurate Potassium quantif ication in these patients send serum separator tube (gold top) for subsequent determinations. ??Contact the Clinical Chemistry Laboratory if there are any qu estions. Chloride 76 (L) 98 - 107 mmol/L [facility] CO2 27 22 - 31 mmol/L [facility] Anion Gap 17 (H) 5 - 15 mmol/L [facility]ORY Calcium 9.2 8.5 - 10.5 mg/dL [facility] LAB[facility]ORY Estimated GFR 11 (L) >=60 mL/min/1.73 m?? [facility] Comment: The eGFR was calculated using the CKD-EP I equation. As with all creatinine based estimates of kidney function, eGFR values calculated with the CKD-EPI equation are not accurate in patients wi th acute kidney failure, extremes of body mass or the acutely ill. [email or web address] eGFR 13 (L) >=60 mL/min/1.73 m?? [facility] Comment: The eGFR was calculated using the CKD-EP I equation. As with all creatinine based estimates of kidney function, eGFR values calculated with the CKD-EPI equation are not accurate in patients wi th acute kidney failure, extremes of body mass or the acutely ill. [email or web address] Specimen Anatomical Collection Method Collection Time Receive d Time (Source) Location / / Volume Laterality Blood specimen 01/17/2019 3:54 AM 019 4:13 (specimen) EDT AM EDT Resulting Agency Comment Spec In Lab Thomas Terrazas II, MD CHEMISTRY ORDERABLES Performing Organization Address City/State/ZIP Code Phon e Number [place] [phone] LAB[address] (ABNORMAL) BMP w/fasting Glucose (01/16/2019 8:02 PM EDT) athologist Signature Glucose 158 (H) 65 - 99 [facility] Fasting mg/dL [facility]ORY Comment: ?Fasting* Glucose Interpretive C riteria Normal ?65-99 mg/dL Impaired Fasting glucose ?100-125 mg/dL Consistent with Diabetes Mellitus ? >or= 126 mg/dL *Fasting is defined as no caloric intake for at least 8 hours In the absence of unequivocal hypergly cemia a plasma glucose value of >or= 126 mg/dL should be repeated on a subseq uent day. Diagnosis and Classification of Diabetes Mellitus, Position Statement from the [employer] [employer]. ??Diabete s Care, Volume 33, Supplement 1, Apr 2009 BUN 70 (H) 8 - 18 mg/dL [facility] Creatinine 3.65 (H) 0.70 - 1.20 mg/dL [facility] Sodium 118 (Critical) 135 - 145 mmol/L [facility] Comment: Called by: CRISTINA, Read back by: Sharad Mcmillan_, Date/Time:01/16/19 21:00. Potassium 3.5 3.5 - 5.0 mmol/L [facility] Comment: Please note: ??Patients with WBC >100,00 0 may have falsely elevated Potassium levels. ??For accurate Potassium quantif ication in these patients send serum separator tube (gold top) for subsequent determinations. ??Contact the Clinical Chemistry Laboratory if there are any qu estions. Chloride 75 (L) 98 - 107 mmol/L [facility] CO2 27 22 - 31 mmol/L [facility] Anion Gap 16 (H) 5 - 15 mmol/L [facility] Calcium 9.0 8.5 - 10.5 mg/dL [facility] Estimated GFR 12 (L) >=60 mL/min/1.73 m?? [facility] Comment: The eGFR was calculated using the CKD-EP I equation. As with all creatinine based estimates of kidney function, eGFR values calculated with the CKD-EPI equation are not accurate in patients wi th acute kidney failure, extremes of body mass or the acutely ill. [email or web address] eGFR 14 (L) >=60 mL/min/1.73 m?? [facility] Comment: The eGFR was calculated using the CKD-EP I equation. As with all creatinine based estimates of kidney function, eGFR values calculated with the CKD-EPI equation are not accurate in patients wi th acute kidney failure, extremes of body mass or the acutely ill. [email or web address] Specimen Anatomical Collection Method Collection Time Receive d Time (Source) Location / / Volume Laterality Blood specimen 01/16/2019 8:02 PM 019 8:17 (specimen) EDT PM EDT Resulting Agency Comment Spec In Lab Thomas Terrazas II, MD CHEMISTRY ORDERABLES Performing Organization Address City/State/[place] [address] XR Chest PA & Lateral (Generic) (01/16/2019 2:22 PM EDT) Anatomical Region Laterality Modality Chest N/A Digital Radiography Specimen (Source) Anatomical Location Collection Method / Collectio n Time Received Time / Laterality Volume Impressions 01/16/2019 2:42 PM EDT 1. ??Radiographic findings most consistent with pulmonary vascular congestion. Features include increased prominence an d indistinctness of pulmonary markings with small bilateral pleural effusions. Thank you for letting us participate in the care of this patient. For questions regarding this report, please contact e number below. ? Electronically signed by: Jennifer Hauser [facility] ([phone]), at 01/16/2019 2:42 PM Narrative 01/16/2019 2:42 PM EDT EXAMINATION: XR CHEST PA AND LATERAL (GENERIC) CLINICAL HISTORY: shortness of breath TECHNIQUE: PA and lateral views of the chest COMPARISON: Chest radiograph 10/02/[address] chest, abdomen, pelvis 01/07/2019. FINDINGS: Unchanged cardiac mediastinal silhouette . Unchanged hilar silhouette. There is slight increased prominence of the pulmo nary markings which are also indistinct. There are small bilateral pleural effusi ons, best seen on the lateral view. No dense or confluent consolidation. No khoa reciable pneumothorax. Procedure Note Lexus Bean MD - 01/16/2019Formattin g of this note might be different from the original. EXAMINATION: XR CHEST PA AND LATERAL (GE NERIC) CLINICAL HISTORY: shortness of breath TECHNIQUE: PA and lateral views of the chest COMPARISON: Chest radiograph 10/02/[address] chest, abdomen, pelvis 01/07/2019. FINDINGS: Unchanged cardiac mediastinal silhouette . Unchanged hilar silhouette. There is slight increased prominence of the pulmo nary markings which are also indistinct. There are small bilateral pleural effusi ons, best seen on the lateral view. No dense or confluent consolidation. No khoa reciable pneumothorax. IMPRESSION 1. Radiographic findings most consistent with pulmonary vascular congestion. Features include increased prominence an d indistinctness of pulmonary markings with small bilateral pleural effusions. Thank you for letting us participate in the care of this patient. For questions regarding this report, please contact e number below. Electronically signed by: Jennifer Hauser [facility] ([phone]), at 01/16/2019 2:42 PM Thomas Terrazas II, MD IMG DX ORDERABLES XR Abdomen 1 view (Generic) (01/16/2019 2:22 PM EDT) Anatomical Region Laterality Modality Abdomen N/A Digital Radiography Specimen (Source) Anatomical Location Collection Method / Collectio n Time Received Time / Laterality Volume Impressions 01/16/2019 3:26 PM EDT Nonobstructive bowel gas pattern. If there is concern for developing bowel instruction, recommend serial clinical e xams, and if clinically indicated, supplementation with a complete abdomina l series can be considered. Thank you for letting us participate in the care of this patient. For questions regarding this report, please contact e number below. ? Electronically signed by: Jennifer Hauser [facility] ([phone]), at 01/16/2019 3:26 PM Narrative 01/16/2019 3:26 PM EDT EXAMINATION: XR ABDOMEN 1 VIEW (GENERIC) CLINICAL HISTORY: throwing up and very h yperactive BS now on exam TECHNIQUE: AP view the abdomen COMPARISON: CT chest, abdomen, pelvis 01/07/2019. Abd ominal radiograph 09/07/2018. FINDINGS: Nondilated loops of bowel are noted. Sup ine technique limits evaluation for intraperitoneal air. No portal venous ga s. There is a surgical clip projecting over the upper abdomen. Gas and stool is seen in the rectum. Procedure Note Lexus Bean MD - 01/16/2019Formattin g of this note might be different from the original. EXAMINATION: XR ABDOMEN 1 VIEW (GENERIC) CLINICAL HISTORY: throwing up and very h yperactive BS now on exam TECHNIQUE: AP view the abdomen COMPARISON: CT chest, abdomen, pelvis 01/07/2019. Abd ominal radiograph 09/07/2018. FINDINGS: Nondilated loops of bowel are noted. Sup ine technique limits evaluation for intraperitoneal air. No portal venous ga s. There is a surgical clip projecting over the upper abdomen. Gas and stool is seen in the rectum. IMPRESSION Nonobstructive bowel gas pattern. If the re is concern for developing bowel instruction, recommend serial clinical e xams, and if clinically indicated, supplementation with a complete abdomina l series can be considered. Thank you for letting us participate in the care of this patient. For questions regarding this report, please contact th e number below. Thomas Terrazas II, MD IMG DX ORDERABLES Magnesium (01/16/2019 1:06 PM EDT) athologist Signature Magnesium 0.88 0.69 - 1.07 [facility] mmol/L [facility] LABORATORY Specimen Anatomical Collection Method Collection Time Receive d Time (Source) Location / / Volume Laterality Blood specimen 01/16/2019 1:06 PM 019 1:24 (specimen) EDT PM EDT Resulting Agency Comment Spec In Lab Thomas Terrazas II, MD CHEMISTRY ORDERABLES Performing Organization Address City/State/ZIP Code [place] [address] (ABNORMAL) BMP w/fasting Glucose (01/16/2019 1:06 PM EDT) athologist Signature Glucose 124 (H) 65 - 99 [facility] Fasting mg/dL [facility] Comment: ?Fasting* Glucose Interpretive C riteria Normal ?65-99 mg/dL Impaired Fasting glucose ?100-125 mg/dL Consistent with Diabetes Mellitus ? >or= 126 mg/dL *Fasting is defined as no caloric intake for at least 8 hours In the absence of unequivocal hypergly cemia a plasma glucose value of >or= 126 mg/dL should be repeated on a subseq uent day. Diagnosis and Classification of Diabetes Mellitus, Position Statement from the [employer] [employer]. ??Diabete s Care, Volume 33, Supplement 1, Apr 2009 BUN 64 (H) 8 - 18 mg/dL [facility] Creatinine 3.57 (H) 0.70 - 1.20 mg/dL [facility] Sodium 118 (Critical) 135 - 145 mmol/L [facility] Comment: Results rechecked Called by: chandana, Read back by: Bella garcia, Date/Time:01/16/19 14:05. Potassium 4.0 3.5 - 5.0 mmol/L [facility] Comment: Please note: ??Patients with WBC >100,00 0 may have falsely elevated Potassium levels. ??For accurate Potassium quantif ication in these patients send serum separator tube (gold top) for subsequent determinations. ??Contact the Clinical Chemistry Laboratory if there are any qu estions. Chloride 74 (L) 98 - 107 mmol/L [facility] CO2 27 22 - 31 mmol/L [facility] Anion Gap 17 (H) 5 - 15 mmol/L [facility] Calcium 9.3 8.5 - 10.5 mg/dL [facility] Estimated GFR 12 (L) >=60 mL/min/1.73 m?? [facility] Comment: The eGFR was calculated using the CKD-EP I equation. As with all creatinine based estimates of kidney function, eGFR values calculated with the CKD-EPI equation are not accurate in patients wi th acute kidney failure, extremes of body mass or the acutely ill. [email or web address] eGFR 14 (L) >=60 mL/min/1.73 m?? [facility] Comment: The eGFR was calculated using the CKD-EP I equation. As with all creatinine based estimates of kidney function, eGFR values calculated with the CKD-EPI equation are not accurate in patients wi th acute kidney failure, extremes of body mass or the acutely ill. [email or web address] Specimen Anatomical Collection Method Collection Time Receive d Time (Source) Location / / Volume Laterality Blood specimen 01/16/2019 1:06 PM 019 1:24 (specimen) EDT PM EDT Resulting Agency Comment Spec In Lab Thomas Terrazas II, MD CHEMISTRY ORDERABLES Performing Organization Address City/[facility]/ZIP Code Phon e Number [address] Magnesium (01/16/2019 8:53 AM EDT) P athologist Signature Magnesium 0.83 0.69 - 1.07 [facility] mmol/L [facility] Specimen Anatomical Collection Method Collection Time Receive d Time (Source) Location / / Volume Laterality Blood specimen Venous Draw / 01/16/2019 8:53 AM 2018 9:07 (specimen) Unknown EDT AM EDT Resulting Agency Comment Spec In Lab Hiwot KIRK CHEMISTRY ORDERABLES Performing Organization Address City/[facility]/ZIP Code Phon e Number [address] (ABNORMAL) BMP w/fasting Glucose (01/16/2019 8:53 AM EDT) P athologist Signature Glucose 119 (H) 65 - 99 [facility] Fasting mg/dL [facility] Comment: ?Fasting* Glucose Interpretive C riteria Normal ?65-99 mg/dL Impaired Fasting glucose ?100-125 mg/dL Consistent with Diabetes Mellitus ? >or= 126 mg/dL *Fasting is defined as no caloric intake for at least 8 hours In the absence of unequivocal hypergly cemia a plasma glucose value of >or= 126 mg/dL should be repeated on a subseq uent day. Diagnosis and Classification of Diabetes Mellitus, Position Statement from the [employer] [employer]. ??Diabete s Care, Volume 33, Supplement 1, Apr 2009 BUN 64 (H) 8 - 18 mg/dL [facility] Creatinine 3.53 (H) 0.70 - 1.20 mg/dL [facility] Sodium 117 (Critical) 135 - 145 mmol/L [facility] Comment: Called by: TACOS, Read back by: Javier Verma, Date/Time:01/16/19 09:40. Potassium 3.6 3.5 - 5.0 mmol/L [facility] Comment: Please note: ??Patients with WBC >100,00 0 may have falsely elevated Potassium levels. ??For accurate Potassium quantif ication in these patients send serum separator tube (gold top) for subsequent determinations. ??Contact the Clinical Chemistry Laboratory if there are any qu estions. Chloride 72 (L) 98 - 107 mmol/L [facility] CO2 27 22 - 31 mmol/L [facility] Anion Gap 18 (H) 5 - 15 mmol/L [facility] Calcium 9.1 8.5 - 10.5 mg/dL [facility] Estimated GFR 12 (L) >=60 mL/min/1.73 m?? [facility] Comment: The eGFR was calculated using the CKD-EP I equation. As with all creatinine based estimates of kidney function, eGFR values calculated with the CKD-EPI equation are not accurate in patients wi th acute kidney failure, extremes of body mass or the acutely ill. [email or web address] eGFR 14 (L) >=60 mL/min/1.73 m?? [facility] Comment: The eGFR was calculated using the CKD-EP I equation. As with all creatinine based estimates of kidney function, eGFR values calculated with the CKD-EPI equation are not accurate in patients wi th acute kidney failure, extremes of body mass or the acutely ill. [email or web address] Specimen Anatomical Collection Method Collection Time Receive d Time (Source) Location / / Volume Laterality Blood specimen 01/16/2019 8:53 AM 019 8:57 (specimen) EDT AM EDT Resulting Agency Comment Spec In Lab Thomas Terrazas II, MD CHEMISTRY ORDERABLES Performing Organization Address City/State/[facility] Code Phon e Number [place] [id number]ORY [address] (ABNORMAL) Differential, Automated (01/16/2019 5:20 AM EDT) [facility] Method Time Signature Neutrophils % 84.4 % [facility] Neutr Abs (ANC) 9.47 (H) 1.70 - [facility] 6.10 [facility] x10(3)/[facility] L LABORATORY Lymphocytes % 3.4 % [facility] Lymphocytes Abs 0.4 (L) 0.9 - 3.2 [facility] x10(3)/[facility] LABORATORY Monocytes % 10.4 % [facility] Monocyte Abs 1.2 (H) 0.3 - 0.9 [facility] x10(3)/[facility] LABORATORY Eosinophils % 1.1 % [facility] Eosinophils Abs 0.1 0.0 - 0.4 [facility] x10(3)/[facility] LABORATORY Basophils % 0.4 % [facility] Basophils Abs 0.0 0.0 - 0.1 [facility] x10(3)/[facility] LABORATORY Immature Gran % 0.30 % [facility] Comment: Immature granulocytes(IG's)percentage an d absolute count will include metamyelocytes, myelocytes, and promyelo cytes. Blood smears from CBCs yielding IG's will be scanned manually for kevyn bowen. If this scan disagrees with the automated IG or if promyelocytes are not ed, a manual differential will be performed. Blanca Gran Abs 0.03 0.00 - 0.04 x10(3)/[facility] LAB[facility] Specimen Anatomical Collection Method Collection Time Receive d Time (Source) Location / / Volume Laterality Blood specimen 01/16/2019 5:20 AM 019 5:43 (specimen) EDT AM EDT Resulting Agency Comment Spec In Lab Bertha Carlin King KYRA HEMATOLOGY ORDERABLES Performing Organization Address City/State/ZIP Code [place] [address] (ABNORMAL) Hemogram (01/16/2019 5:20 AM EDT) Analysis Performed At Patho logist Time Signature WBC 11.2 (H) 4.0 - 9.5 [facility] x10(3)/[facility] LABORATORY RBC 3.61 (L) 4.00 [facility] 5.21 [facility] x10(6)/[facility] LABORATORY Hemoglobin 11.0 (L) 11.7 - [facility] 15.5 gm/dL [facility] Hematocrit 30.7 (L) 35.7 - [facility] 45.8 % [facility] LABORATORY MCV 85.0 82.6 - [facility] 94.4 [facility] LABORATORY MCH 30.5 27.1 - [facility] 32.0 pg [facility] LABORATORY MCHC 35.8 (H) 31.7 - [facility] 35.0 gm/dL [facility] LABORATORY Platelets 252 145 - 357 [facility] x10(3)/[facility] LABORATORY RDWSD 46.1 (H) 37.0 - [facility] 46.0 [facility] LABORATORY RDWCV 15.5 (H) 11.5 - [facility] 14.1 % [facility] LABORATORY MPV 11.5 7.6 - 12.9 [facility] LABORATORY nRBC % Auto 0.0 % [facility] LABORATORY nRBC Abs Auto 0.000 0.000 - [facility] 0.000 [facility] x10(3)/[facility] LABORATORY Specimen Anatomical Collection Method Collection Time Receive d Time (Source) Location / / Volume Laterality Blood specimen 01/16/2019 5:20 AM 019 5:43 (specimen) EDT AM EDT Resulting Agency Comment Spec In Lab Bertha Ruano APRN HEMATOLOGY ORDERABLES Performing Organization Address City/State/ZIP Code [place] [address] (ABNORMAL) BMP w/fasting Glucose (01/16/2019 5:20 AM EDT) athologist Signature Glucose 133 (H) 65 - 99 [facility] Fasting mg/dL [facility] LABORATORY Comment: ?Fasting* Glucose Interpretive C riteria Normal ?65-99 mg/dL Impaired Fasting glucose ?100-125 mg/dL Consistent with Diabetes Mellitus ? >or= 126 mg/dL *Fasting is defined as no caloric intake for at least 8 hours In the absence of unequivocal hypergly cemia a plasma glucose value of >or= 126 mg/dL should be repeated on a subseq uent day. Diagnosis and Classification of Diabetes Mellitus, Position Statement from the [employer] [employer]. ??Diabete s Care, Volume 33, Supplement 1, Apr 2009 BUN 63 (H) 8 - 18 mg/dL [facility] Creatinine 3.33 (H) 0.70 - 1.20 mg/dL [facility] Sodium 116 (Critical) 135 - 145 mmol/L [facility] Comment: Called by: sonja, Read back by: Wanda Almaguer, Date/Time:01/16/19 06:39. Potassium 3.4 (L) 3.5 - 5.0 mmol/L [facility] Comment: Please note: ??Patients with WBC >100,00 0 may have falsely elevated Potassium levels. ??For accurate Potassium quantif ication in these patients send serum separator tube (gold top) for subsequent determinations. ??Contact the Clinical Chemistry Laboratory if there are any qu estions. Chloride 72 (L) 98 - 107 mmol/L [facility] CO2 28 22 - 31 mmol/L [facility] Anion Gap 16 (H) 5 - 15 mmol/L [facility] Calcium 9.4 8.5 - 10.5 mg/dL [facility] LABORATORY Estimated GFR 13 (L) >=60 mL/min/1.73 m?? [facility] Comment: The eGFR was calculated using the CKD-EP I equation. As with all creatinine based estimates of kidney function, eGFR values calculated with the CKD-EPI equation are not accurate in patients wi th acute kidney failure, extremes of body mass or the acutely ill. [email or web address] eGFR 15 (L) >=60 mL/min/1.73 m?? [facility] Comment: The eGFR was calculated using the CKD-EP I equation. As with all creatinine based estimates of kidney function, eGFR values calculated with the CKD-EPI equation are not accurate in patients wi th acute kidney failure, extremes of body mass or the acutely ill. [email or web address] Specimen Anatomical Collection Method Collection Time Receive d Time (Source) Location / / Volume Laterality Blood specimen 01/16/2019 5:20 AM 019 6:01 (specimen) EDT AM EDT Resulting Agency Comment Spec In Lab Bertha Ruano APRN CHEMISTRY ORDERABLES Performing Organization Address City/State/[place] [address] Scan, Peripheral Blood (01/15/2019 4:39 AM EDT) Patholo gist Method Time Signature Plat Estimate Normal [facility] RBC Morphology Abnormal [facility] Ovalocytes 1-5 /HPF [facility] Specimen Anatomical Collection Method Collection Time Receive d Time (Source) Location / / Volume Laterality Blood specimen 01/15/2019 4:39 AM 019 4:45 (specimen) EDT AM EDT Resulting Agency Comment Spec In Lab Bertha Ruano [facility] HEMATOLOGY ORDERABLES Performing Organization Address City/State/ZIP Code [place] [address] (ABNORMAL) Differential, Automated (01/15/2019 4:39 AM EDT) [facility] Method Time Signature Neutrophils % 71.1 % [facility]OR[facility]ORY Neutr Abs (ANC) 7.62 (H) 1.70 - [facility] 6.10 [facility] x10(3)/[facility] LABORATORY Lymphocytes % 9.4 % [facility]ORY Lymphocytes Abs 1.0 0.9 - 3.2 [facility] x10(3)/[facility] LABORATORY Monocytes % 14.7 % [facility]ORY Monocyte Abs 1.6 (H) 0.3 - 0.9 [facility] x10(3)/[facility] LABORATORY Eosinophils % 3.9 % [facility] Eosinophils Abs 0.4 0.0 - 0.4 [facility] x10(3)/[facility] LABORATORY Basophils % 0.6 % [facility] Basophils Abs 0.1 0.0 - 0.1 [facility] x10(3)/[facility] LABORATORY Immature Gran % 0.30 % [facility] Comment: Immature granulocytes(IG's)percentage an d absolute count will include metamyelocytes, myelocytes, and promyelo cytes. Blood smears from CBCs yielding IG's will be scanned manually for concor dance. If this scan disagrees with the automated IG or if promyelocytes are not ed, a manual differential will be performed. Blanca Gran Abs 0.03 0.00 - 0.04 x10(3)/[facility] Specimen Anatomical Collection Method Collection Time Receive d Time (Source) Location / / Volume Laterality Blood specimen 01/15/2019 4:39 AM 019 4:45 (specimen) EDT AM EDT Resulting Agency Comment Spec In Lab Bertha Ruano [facility] HEMATOLOGY ORDERABLES Performing Organization Address City/State/ZIP Code Phon [place] [facility] [place] [address] (ABNORMAL) Hemogram (01/15/2019 4:39 AM EDT) Analysis Performed At Patho logist Time Signature WBC 10.7 (H) 4.0 - 9.5 [facility] x10(3)/[facility] LABORATORY RBC 3.65 (L) 4.00 - [facility] 5.21 [facility] x10(6)/[facility] LABORATORY Hemoglobin 11.3 (L) 11.7 - [facility] 15.[facility] gm/dL [facility] LABORATORY Hematocrit 32.9 (L) 35.7 - [facility] 45.8 % [facility] LABORATORY MCV 90.1 82.6 - [facility] 94.4 [facility] LABORATORY MCH 31.0 27.1 - [facility] 32.0 pg [facility] LABORATORY MCHC 34.3 31.7 - [facility] 35.0 gm/dL [facility] LABORATORY Platelets 269 145 - 357 [facility] x10(3)/[facility] LABORATORY RDWSD 50.2 (H) 37.0 - [facility] 46.0 [facility] LABORATORY RDWCV 15.8 (H) 11.5 - [facility] 14.1 % [facility] LABORATORY MPV 10.7 7.6 - 12.9 [facility] LABORATORY nRBC % Auto 0.0 % [facility] LABORATORY nRBC Abs Auto 0.000 0.000 - [facility] 0.000 [facility] x10(3)/[facility] LABORATORY Specimen Anatomical Collection Method Collection Time Receive d Time (Source) Location / / Volume Laterality Blood specimen 01/15/2019 4:39 AM 019 4:45 (specimen) EDT AM EDT Resulting Agency Comment Spec In Lab Bertha Ruano APRN HEMATOLOGY ORDERABLES Performing Organization Address City/State/ZIP Code [place] [address] (ABNORMAL) BMP w/fasting Glucose (01/15/2019 4:39 AM EDT) P athologist Signature Glucose 119 (H) 65 - 99 [facility] Fasting mg/dL [facility] LABORATORY Comment: ?Fasting* Glucose Interpretive C riteria Normal ?65-99 mg/dL Impaired Fasting glucose ?100-125 mg/dL Consistent with Diabetes Mellitus ? >or= 126 mg/dL *Fasting is defined as no caloric intake for at least 8 hours In the absence of unequivocal hypergly cemia a plasma glucose value of >or= 126 mg/dL should be repeated on a subseq uent day. Diagnosis and Classification of Diabetes Mellitus, Position Statement from the [employer]. ??Diabete s Care, Volume 33, Supplement 1, Apr 2009 BUN 70 (H) 8 - 18 mg/dL [facility] Creatinine 3.83 (H) 0.70 - 1.20 mg/dL [facility] Sodium 123 (L) 135 - 145 mmol/L [facility]ORATORY Potassium 3.4 (L) 3.5 - 5.0 mmol/L [facility] Comment: Please note: ??Patients with WBC >100,00 0 may have falsely elevated Potassium levels. ??For accurate Potassium quantif ication in these patients send serum separator tube (gold top) for subsequent determinations. ??Contact the Clinical Chemistry Laboratory if there are any qu estions. Chloride 73 (L) 98 - 107 mmol/L [facility] CO2 32 (H) 22 - 31 mmol/L [facility] Anion Gap 18 (H) 5 - 15 mmol/L [facility] Calcium 9.4 8.5 - 10.5 mg/dL [facility] LABORATORY Estimated GFR 11 (L) >=60 mL/min/1.73 m?? [facility] Comment: The eGFR was calculated using the CKD-EP I equation. As with all creatinine based estimates of kidney function, eGFR values calculated with the CKD-EPI equation are not accurate in patients wi th acute kidney failure, extremes of body mass or the acutely ill. [email or web address] eGFR 13 (L) >=60 mL/min/1.73 m?? [facility] Comment: The eGFR was calculated using the CKD-EP I equation. As with all creatinine based estimates of kidney function, eGFR values calculated with the CKD-EPI equation are not accurate in patients wi th acute kidney failure, extremes of body mass or the acutely ill. [email or web address] Specimen Anatomical Collection Method Collection Time Receive d Time (Source) Location / / Volume Laterality Blood specimen 01/15/2019 4:39 AM 019 4:45 (specimen) EDT AM EDT Resulting Agency Comment Spec In Lab Bertha Ruano APRN CHEMISTRY ORDERABLES Performing Organization Address City/State/ZIP [place] [address] CARDIAC CATHETERIZATION (01/14/2019 2:29 PM EDT) Anatomical Region Laterality Modality Other Specimen (Source) Anatomical Location Collection Method / Collectio n Time Received Time / Laterality Volume Narrative 01/17/2019 11:59 AM EDT ?[facility] ? Cardiac Cathete rization/Intervention Report ? Patient Name: Pretty Harmon. ? Procedure Date: 01/14/2019 ? A #: [id number] ? Primary Physician: Asad, Brent Scanlon ? Case #: [id number] ? File Name: [id number] ? Catheterization Order Number: [id number] ? [facility] ? Final Report [place], [place] ? Patient Name: ? Pretty B. Harmon ? ID#: ?[id number] ? : ?1950 ? Procedure Date: ? Whitley 20, 2 019 ? Case #: ? [id number] ? Room: ? 2 ? Case Physician: ? Brent Kamara M.D. ?Start: ?14:09 ?Fellow: ? Gerard rao M.D. ? Admission: ??01/07/2019 ?Frank Arroyo M.D. ? Referring Physician: ??Sanjuanita Lee M.D. ? Procedures: ?* Right Heart Catheterization ?* Oximetry ? History ?Pretty Harmon is a 68 year old w tevin. She has hypertension. The patient's ?smoking status is Former. She h as hypercholesterolemia managed with lipid ?therapy. The patient has a hist ory of an ejection fraction less than or ?equal to 35% and pulmonary hype rtension. She has a history of CHF. The ?CHF is NYHA Functional Class IV , is newly diagnosed and is classified as ?Systolic. She has an abdominal aortic aneurysm. The patient also has a ?history of peripheral vascular disease. Prior to the initiation of this ?procedure, the patient was migue gnated as ASA Class IV. The CSHA clinical ?frailty scale is 6: Moderately Frail. ? Diagnostic Tests: ?Prior Coronary Angiography: ? LV ejection fraction wit hin 6 months is 20%. ?Electrocardiography: ? EKG was assessed by ECG. EKG was Abnormal. EKG showed T-wave ? inversions and other abn ormality. ?Stress or Imaging Studies: ? A stress test with SPECT imaging was performed on 01/11/2019 and was ? Negative. ?Medications Prior to Procedure: ? ASA, Beta Se, Calci um Channel Blocking Agent and Statin. ? Indications for Diagnostic Cath: ?The priority of the diagnostic procedure was Urgent. The indication for ?the director labor standards visit is cardiomyo andrew. Chest pain symptom assessment was: ?Asymptomatic. ? Technique: ?A 7Fr sheath was inserted in th e right femoral vein utilizing the ?Seldinger technique. Right hear t catheterization was performed utilizing ?a 5Fr BALLOON WEDGE catheter. R adiation: Fluoro time was 4.3 minutes, ?dose area product was 2,004 mGY cm2 and air kerma was 15 mGY. See the case ?log for additional details. ? Hemodynamics: ?Right Heart Pressures ? Hemodynamics: ? Syst D iast ? EDP ?a ?v ? m ?RA ? 8 ? 10 ? 7 ?RV 42 ?10 ?PA 44 ?21 ?31 ?PCW ?25 ?32 ?24 ? Hemodynamic Profile: ?Profile 1 ? Profile 2 ?CO ? 3.07 ?3.75 ?CI ? 2.44 ?2.98 ?TPR ?808 ? 661 ?PVR ?182 ? 149 ?Techniq ue ?Estimated Aymini ?Thermodilution ?Comments: ??Peripheral BP 103/6 3. ? Oximetry: ?Location ? % Sat ?Location ?%Sat ?Main Pulmonary Artery ??62.0 ?SPO2 probe ?96.0 ? Indication for Selected Procedures: ?Right Heart catheterization was initiated for Cardiomyopathy, unspecified ?(I42.9). ? Conclusions: ?* Mild pulmonary hypertension ?* Elevated pulmonary capillary wedge pressure ?* Decreased cardiac output ? Complications/Events: ?The patient had no complication s during these procedures. ? Recommendations: ?Based upon the results of this procedure, it was recommended that medical ?therapy be considered. ?The attending physician was presen t for the entire procedure. ?Dr. Brent Kamara M.D. was pres ent during the moderate sedation ?intraservice time as documented by the sedation nurse. ??Case time = 00:20. ?Dr. Brent Kamara M.D. performe d the right heart catheterization and ?oximetry. ? Brent Kamara, M.D. ? Electronically Signed by: Brent serrano, M.D. ? Report Finalized: 01/17/2019 ??11:54 ? Report Last Ammended: 02/03/2019 ??11:33 ? Procedure Note Brent Kamara MD - 02/03/2019Formatt ing of this note might be different from the original. [facility] Cardiac Catheterization/Intervention Re port Patient Name: Pretty Harmon Procedure Date: 01/14/2019 A #: [id number] Primary Physician: Brent Kamara Case #: [id number] File Name: [id number] Catheterization Order Number: [id number] [facility] Insurance Law Specialist [facility] Final Report [place], [place] Patient Name: Pretty Harmon ID#: [id number] : [id number] Procedure Date: January 14, 2019 Case #: [id number] Room: 2 Case Physician: Brent Kamara M.D. art: 14:09 Fellow: Sanchez Goldissskyler n: 01/07/2019 Frank Arroyo M.D. Referring Physician: Sanjuanita Lee M.D. Procedures: * Right Heart Catheterization * Oximetry History Pretty Harmon is a 68 year old woman. Sh e has hypertension. The patient's smoking status is Former. She has hyper cholesterolemia managed with lipid therapy. The patient has a history of a n ejection fraction less than or equal to 35% and pulmonary hypertension . She has a history of CHF. The CHF is NYHA Functional Class IV, is new ly diagnosed and is classified as Systolic. She has an abdominal aortic a neurysm. The patient also has a history of peripheral vascular disease. Prior to the initiation of this procedure, the patient was designated a s ASA Class IV. The [facility] clinical frailty scale is 6: Moderately Frail. Diagnostic Tests: Prior Coronary Angiography: LV ejection fraction within 6 months is 20%. Electrocardiography: EKG was assessed by ECG. EKG was Abnorm al. EKG showed T-wave inversions and other abnormality. Stress or Imaging Studies: A stress test with SPECT imaging was pe rformed on 01/11/2019 and was Negative. Medications Prior to Procedure: ASA, Beta Se, Calcium Channel Bloc perico Agent and Statin. Indications for Diagnostic Cath: The priority of the diagnostic procedur e was Urgent. The indication for the director labor standards visit is cardiomyopathy. C hest pain symptom assessment was: Asymptomatic. Technique: A 7Fr sheath was inserted in the right femoral vein utilizing the Seldinger technique. Right heart cathet erization was performed utilizing a 5Fr BALLOON WEDGE catheter. Radiation : Fluoro time was 4.3 minutes, dose area product was 2,004 mGYcm2 and air kerma was 15 mGY. See the case log for additional details. Hemodynamics: Right Heart Pressures Hemodynamics: Syst Diast EDP a v m RA 8 10 7 RV 42 10 PA 44 21 31 PCW 25 32 24 Hemodynamic Profile: Profile 1 Profile 2 CO 3.07 3.75 CI 2.44 2.98 TPR 808 661 PVR 182 149 Technique Estimated Yamini Thermodilution Comments: Peripheral BP 103/63. Oximetry: Location %Sat Location %Sat Main Pulmonary Artery 62.0 SPO2 probe 9 6.0 Indication for Selected Procedures: Right Heart catheterization was initiat ed for Cardiomyopathy, unspecified (I42.9). Conclusions: * Mild pulmonary hypertension * Elevated pulmonary capillary wedge pr essure * Decreased cardiac output Complications/Events: The patient had no complications during these procedures. Recommendations: Based upon the results of this procedur e, it was recommended that medical therapy be considered. The attending physician was present for the entire procedure. Dr. Brent Kamara M.D. was present d uring the moderate sedation intraservice time as documented by the sedation nurse. Case time = 00:20. Dr. Brent Kamara M.D. performed the right heart catheterization and oximetry. Brent Kamara M.D. Electronically Signed by: Brent serrano M.D. Report Finalized: 01/17/2019 11:54 Report Last Ammended: 02/03/2019 11:33 Brent Kamara MD CARDIAC CATH ORDERABLES (ABNORMAL) Differential, Automated (01/14/2019 3:42 AM EDT) [facility] Method Time Signature Neutrophils % 75.4 % [facility] Neutr Abs (ANC) 9.68 (H) 1.70 - [facility] 6.10 [facility] x10(3)/[facility] LABORATORY Lymphocytes % 9.0 % [facility] Lymphocytes Abs 1.2 0.9 - 3.2 [facility] x10(3)/[facility] LABORATORY Monocytes % 11.1 % [facility] Monocyte Abs 1.4 (H) 0.3 - 0.9 [facility] x10(3)/[facility] LABORATORY Eosinophils % 3.7 % [facility] Eosinophils Abs 0.5 (H) 0.0 - 0.4 [facility] x10(3)/[facility] LABORATORY Basophils % 0.5 % [facility] Basophils Abs 0.1 0.0 - 0.1 [facility] x10(3)/[facility] LABORATORY Immature Gran % 0.30 % [facility] Comment: Immature granulocytes(IG's)percentage an d absolute count will include metamyelocytes, myelocytes, and promyelo cytes. Blood smears from CBCs yielding IG's will be scanned manually for concor dance. If this scan disagrees with the automated IG or if promyelocytes are not ed, a manual differential will be performed. [place] Gran Abs 0.04 0.00 - 0.04 x10(3)/[facility] Specimen Anatomical Collection Method Collection Time Receive d Time (Source) Location / / Volume Laterality Blood specimen 01/14/2019 3:42 AM 019 4:13 (specimen) EDT AM EDT Resulting Agency Comment Spec In Lab Bertha J King KYRA HEMATOLOGY ORDERABLES Performing Organization Address City/State/ZIP Code [place] [address] (ABNORMAL) Hemogram (01/14/2019 3:42 AM EDT) Analysis Performed At Patho logist Time Signature WBC 12.8 (H) 4.0 - 9.5 [facility] x10(3)/[facility] LABORATORY RBC 3.84 (L) 4.00 - [facility].21 [facility] x10(6)/[facility] LABORATORY Hemoglobin 11.8 11.7 - [facility] 15.5 gm/dL [facility] Hematocrit 33.4 (L) 35.7 - [facility] 45.8 % [facility] MCV 87.0 82.6 - [facility] 94[facility]4 [facility] LABORATORY MCH 30.7 27.1 - [facility] 32.0 pg [facility] MCHC 35.3 (H) 31.7 - [facility] 35.0 gm/dL [facility] Platelets 285 145 - 357 [facility] x10(3)/[facility] LABORATORY RDWSD 47.4 (H) 37.0 - [facility] [place] 46.0 [facility] LABORATORY RDWCV 15.8 (H) 11.5 - [facility] [place] 14.1 % [facility] LABORATORY MPV 10.8 7.6 - 12.9 [facility] nRBC % Auto 0.0 % [facility] nRBC Abs Auto 0.000 0.000 - [place] 0.000 [facility] x10(3)/[facility] LABORATORY Specimen Anatomical Collection Method Collection Time Receive d Time (Source) Location / / Volume Laterality Blood specimen 01/14/2019 3:42 AM 019 4:13 (specimen) EDT AM EDT Resulting Agency Comment Spec In Lab Bertha Ruano KYRA HEMATOLOGY ORDERABLES Performing Organization Address City/State/ZIP [place] [address] (ABNORMAL) BMP w/fasting Glucose (01/14/2019 3:42 AM EDT) athologist Signature Glucose 138 (H) 65 - 99 [facility] Fasting mg/dL [facility] Comment: ?Fasting* Glucose Interpretive C riteria Normal ?65-99 mg/dL Impaired Fasting glucose ?100-125 mg/dL Consistent with Diabetes Mellitus ? >or= 126 mg/dL *Fasting is defined as no caloric intake for at least 8 hours In the absence of unequivocal hypergly cemia a plasma glucose value of >or= 126 mg/dL should be repeated on a subseq uent day. Diagnosis and Classification of Diabetes Mellitus, Position Statement from the [employer] [employer]. ??Diabete s Care, Volume 33, Supplement 1, Apr 2009 BUN 69 (H) 8 - 18 mg/dL [facility] Creatinine 3.97 (H) 0.70 - 1.20 mg/dL [facility] Sodium 126 (L) 135 - 145 mmol/L [facility] Potassium 3.7 3.5 - 5.0 mmol/L [facility] Comment: Please note: ??Patients with WBC >100,00 0 may have falsely elevated Potassium levels. ??For accurate Potassium quantif ication in these patients send serum separator tube (gold top) for subsequent determinations. ??Contact the Clinical Chemistry Laboratory if there are any qu estions. Chloride 75 (L) 98 - 107 mmol/L [facility] CO2 32 (H) 22 - 31 mmol/L [facility] Anion Gap 19 (H) 5 - 15 mmol/L [facility] Calcium 9.8 8.5 - 10.5 mg/dL [facility] Estimated GFR 11 (L) >=60 mL/min/1.73 m?? [facility] Comment: The eGFR was calculated using the CKD-EP I equation. As with all creatinine based estimates of kidney function, eGFR values calculated with the CKD-EPI equation are not accurate in patients wi th acute kidney failure, extremes of body mass or the acutely ill. [email or web address] eGFR 12 (L) >=60 mL/min/1.73 m?? [facility] Comment: The eGFR was calculated using the CKD-EP I equation. As with all creatinine based estimates of kidney function, eGFR values calculated with the CKD-EPI equation are not accurate in patients wi th acute kidney failure, extremes of body mass or the acutely ill. [email or web address] Specimen Anatomical Collection Method Collection Time Receive d Time (Source) Location / / Volume Laterality Blood specimen 01/14/2019 3:42 AM 019 4:13 (specimen) EDT AM EDT Resulting Agency Comment Spec In Lab Bertha Ruano APRN CHEMISTRY ORDERABLES Performing Organization Address City/State/[place] [address] (ABNORMAL) Differential, Automated (01/13/2019 4:56 AM EDT) [facility] Method Time Signature Neutrophils % 73.9 % [facility] Neutr Abs (ANC) 9.05 (H) 1.70 - [facility] 6.10 [facility] x10(3)/[facility] LABORATORY Lymphocytes % 10.0 % [facility] Lymphocytes Abs 1.2 0.9 - 3.2 [facility] x10(3)/[facility] LABORATORY Monocytes % 11.1 % [facility] Monocyte Abs 1.4 (H) 0.3 - 0.9 [facility] x10(3)/[facility] LABORATORY Eosinophils % 4.0 % [facility] Eosinophils Abs 0.5 (H) 0.0 - 0.4 [facility] x10(3)/[facility] LABORATORY Basophils % 0.6 % [facility] Basophils Abs 0.1 0.0 - 0.1 [facility] x10(3)/[facility] LABORATORY Immature Gran % 0.40 % [facility] Comment: Immature granulocytes(IG's)percentage an d absolute count will include metamyelocytes, myelocytes, and promyelo cytes. Blood smears from CBCs yielding IG's will be scanned manually for concor dance. If this scan disagrees with the automated IG or if promyelocytes are not ed, a manual differential will be performed. Blanca Gran Abs 0.05 (H) 0.00 - 0.04 x10(3)/[facility] LABORATORY Specimen Anatomical Collection Method Collection Time Receive d Time (Source) Location / / Volume Laterality Blood specimen 01/13/2019 4:56 AM 019 5:29 (specimen) EDT AM EDT Resulting Agency Comment Spec In Lab Bertha Ruano APRN HEMATOLOGY ORDERABLES Performing Organization Address City/State/ZIP [place] [address] (ABNORMAL) Hemogram (01/13/2019 4:56 AM EDT) Analysis Performed At Patho logist Time Signature WBC 12.2 (H) 4.0 - 9.5 [facility] LABORATORY RBC 3.89 (L) 4.00 - [facility] 5.21 [facility] x10(6)/[facility] LABORATORY Hemoglobin 11.8 11.7 - [facility] 15.5 gm/dL [facility] Hematocrit 34.2 (L) 35.7 - [facility] 45.8 % [facility]ORATORY MCV 87.9 82.6 - [facility] 94.4 fL [facility]ORATORY MCH 30.3 27.1 - [facility] 32.0 pg [facility]ORY MCHC 34.5 31.7 - [facility] 35.0 gm/dL [facility] Platelets 299 145 - 357 [facility] x10(3)/[facility] LABORATORY RDWSD 48.7 (H) 37.0 - [facility] 46.0 [facility] LABORATORY RDWCV 16.4 (H) 11.5 - [facility] 14.1 % [facility] LABORATORY MPV 10.9 7.6 - 12.9 [facility] LABORATORY nRBC % Auto 0.0 % [facility] nRBC Abs Auto 0.000 0.000 - [facility] 0.000 [facility] x10(3)/[facility] LABORATORY Specimen Anatomical Collection Method Collection Time Receive d Time (Source) Location / / Volume Laterality Blood specimen 01/13/2019 4:56 AM 019 5:29 (specimen) EDT AM EDT Resulting Agency Comment Spec In Lab Bertha Ruano APRN HEMATOLOGY ORDERABLES Performing Organization Address City/State/[place] [address] (ABNORMAL) BMP w/fasting Glucose (01/13/2019 4:56 AM EDT) athologist Signature Glucose 125 (H) 65 - 99 [facility] Fasting mg/dL [facility]ORY Comment: ?Fasting* Glucose Interpretive C riteria Normal ?65-99 mg/dL Impaired Fasting glucose ?100-125 mg/dL Consistent with Diabetes Mellitus ? >or= 126 mg/dL *Fasting is defined as no caloric intake for at least 8 hours In the absence of unequivocal hypergly cemia a plasma glucose value of >or= 126 mg/dL should be repeated on a subseq uent day. Diagnosis and Classification of Diabetes Mellitus, Position Statement from the [employer] [employer]. ??Diabete s Care, Volume 33, Supplement 1, Apr 2009 BUN 64 (H) 8 - 18 mg/dL [facility] Creatinine 3.48 (H) 0.70 - 1.20 mg/dL [facility] Sodium 125 (L) 135 - 145 mmol/L [facility] Potassium 4.1 3.5 - 5.0 mmol/L [facility] Comment: Please note: ??Patients with WBC >100,00 0 may have falsely elevated Potassium levels. ??For accurate Potassium quantif ication in these patients send serum separator tube (gold top) for subsequent determinations. ??Contact the Clinical Chemistry Laboratory if there are any qu estions. Chloride 79 (L) 98 - 107 mmol/L [facility] CO2 30 22 - 31 mmol/L [facility] Anion Gap 16 (H) 5 - 15 mmol/L [facility] Calcium 9.7 8.5 - 10.5 mg/dL [facility] Estimated GFR 13 (L) >=60 mL/min/1.73 m?? [facility] Comment: The eGFR was calculated using the CKD-EP I equation. As with all creatinine based estimates of kidney function, eGFR values calculated with the CKD-EPI equation are not accurate in patients wi th acute kidney failure, extremes of body mass or the acutely ill. [email or web address] eGFR 15 (L) >=60 mL/min/1.73 m?? [facility] Comment: The eGFR was calculated using the CKD-EP I equation. As with all creatinine based estimates of kidney function, eGFR values calculated with the CKD-EPI equation are not accurate in patients wi th acute kidney failure, extremes of body mass or the acutely ill. [email or web address] Specimen Anatomical Collection Method Collection Time Receive d Time (Source) Location / / Volume Laterality Blood specimen 01/13/2019 4:56 AM 019 5:29 (specimen) EDT AM EDT Resulting Agency Comment Spec In Lab Bertha Ruano APRN CHEMISTRY ORDERABLES Performing Organization Address City/State/ZIP Code [place] [address] POCT Glucose (01/12/2019 11:28 AM EDT) athologist Signature POC Glucose 144 65 - 199 [facility] mg/dL [facility] Comment: Supplemental ranges: <140 mg/dL before meals <180 mg/dL all other times of the day Specimen Anatomical Collection Method Collection Time Receive d Time (Source) Location / / Volume Laterality Blood specimen 01/12/2019 11:28 9 (specimen) AM EDT 11:28 AM EDT Thomas Terrazas II, MD POINT OF CARE TEST ORDERABLE S Performing Organization Address City/State/ZIP Code Phon e Number [address] Magnesium (01/12/2019 5:44 AM EDT) athologist Signature Magnesium 0.89 0.69 - 1.07 [facility] mmol/L [facility]ORATORY Specimen Anatomical Collection Method Collection Time Receive d Time (Source) Location / / Volume Laterality Blood specimen Venous Draw / 01/12/2019 5:44 AM 2018 6:10 (specimen) Unknown EDT AM EDT Resulting Agency Comment Spec In Lab Bertha Ruano APRN CHEMISTRY ORDERABLES Performing Organization Address City/[facility]/ZIP Code Phon e Number [address] (ABNORMAL) Differential, Automated (01/12/2019 5:44 AM EDT) [facility] Method Time Signature Neutrophils % 79.5 % [facility] Neutr Abs (ANC) 9.42 (H) 1.70 - [facility] 6.10 [facility] x10(3)/[facility] L LABORATORY Lymphocytes % 6.9 % [facility] Lymphocytes Abs 0.8 (L) 0.9 - 3.2 [facility] x10(3)/[facility] LABORATORY Monocytes % 7.7 % [facility] Monocyte Abs 0.9 0.3 - 0.9 [facility] x10(3)/[facility] LABORATORY Eosinophils % 4.9 % [facility] Eosinophils Abs 0.6 (H) 0.0 - 0.4 [facility] x10(3)/[facility] LABORATORY Basophils % 0.5 % [facility] Basophils Abs 0.1 0.0 - 0.1 [facility] x10(3)/[facility] LABORATORY Immature Gran % 0.50 % [facility] Comment: Immature granulocytes(IG's)percentage an d absolute count will include metamyelocytes, myelocytes, and promyelo cytes. Blood smears from CBCs yielding IG's will be scanned manually for concor dance. If this scan disagrees with the automated IG or if promyelocytes are not ed, a manual differential will be performed. Blanca Gran Abs 0.06 (H) 0.00 - 0.04 x10(3)/[facility] LABORATORY Specimen Anatomical Collection Method Collection Time Receive d Time (Source) Location / / Volume Laterality Blood specimen 01/12/2019 5:44 AM 019 6:10 (specimen) EDT AM EDT Resulting Agency Comment Spec In Lab Whitney Kaplan APRN HEMATOLOGY ORDERABLES Performing Organization Address City/State/ZIP Code [place] [address] (ABNORMAL) Hemogram (01/12/2019 5:44 AM EDT) [facility] gist Method Time Signature WBC 11.8 (H) 4.0 - 9.5 [facility] x10(3)/[facility] LABORATORY RBC 3.94 (L) 4.00 - [facility] x10(6)/[facility] LABORATORY Hemoglobin 12.3 11.7 - [facility] 15.5 gm/dL [facility] LABORATORY Hematocrit 34.8 (L) 35.7 - [facility] 45.8 % [facility] LABORATORY MCV 88.3 82.6 - [facility] 94.4 [facility] LABORATORY MCH 31.2 27.1 - [place] 32.0 pg [facility] LABORATORY MCHC 35.3 (H) 31.7 - [facility] 35.0 gm/dL [facility]ORY Platelets 307 145 - 357 [facility] LABORATORY RDWSD 48.3 (H) 37.0 - [facility] 46.[address] [facility] [place] RDWCV 16.3 (H) 11.5 - [facility] 14.1 % [facility] MPV 10.8 7.6 - 12.9 [facility] LABORATORY nRBC % Auto 0.3 % [facility] nRBC Abs Auto 0.030 (H) 0.000 - [place] ZHANG 0.000 [facility] x10(3)/[facility] LABORATORY Specimen Anatomical Collection Method Collection Time Receive d Time (Source) Location / / Volume Laterality Blood specimen 01/12/2019 5:44 AM 019 6:10 (specimen) EDT AM EDT Resulting Agency Comment Spec In Lab Whitney Kaplan APRN HEMATOLOGY ORDERABLES Performing Organization Address City/State/ZIP Code Phon e Number [address] Osmolality (01/12/2019 5:44 AM EDT) athologist Signature Osmolality 281 275 - 295 [facility] mOsm/kg [facility] LABORATORY Specimen Anatomical Collection Method Collection Time Receive d Time (Source) Location / / Volume Laterality Blood specimen 01/12/2019 5:44 AM 019 6:10 (specimen) EDT AM EDT Resulting Agency Comment Spec In Lab Bertha Ruano APRN CHEMISTRY ORDERABLES Performing Organization Address City/State/[place] [address] (ABNORMAL) BMP w/fasting Glucose (01/12/2019 5:44 AM EDT) P athologist Signature Glucose 153 (H) 65 - 99 [facility] Fasting mg/dL [facility] Comment: ?Fasting* Glucose Interpretive C riteria Normal ?65-99 mg/dL Impaired Fasting glucose ?100-125 mg/dL Consistent with Diabetes Mellitus ? >or= 126 mg/dL *Fasting is defined as no caloric intake for at least 8 hours In the absence of unequivocal hypergly cemia a plasma glucose value of >or= 126 mg/dL should be repeated on a subseq uent day. Diagnosis and Classification of Diabetes Mellitus, Position Statement from the [employer]. ??Diabete s Care, Volume 33, Supplement 1, Apr 2009 BUN 64 (H) 8 - 18 mg/dL [facility] Creatinine 3.46 (H) 0.70 - 1.20 mg/dL [facility] Sodium 127 (L) 135 - 145 mmol/L [facility] Potassium 3.3 (L) 3.5 - 5.0 mmol/L [facility] Comment: Please note: ??Patients with WBC >100,00 0 may have falsely elevated Potassium levels. ??For accurate Potassium quantif ication in these patients send serum separator tube (gold top) for subsequent determinations. ??Contact the Clinical Chemistry Laboratory if there are any qu estions. Chloride 79 (L) 98 - 107 mmol/L [facility] CO2 27 22 - 31 mmol/L [facility] Anion Gap 21 (H) 5 - 15 mmol/L [facility] Calcium 9.7 8.5 - 10.5 mg/dL [facility] Estimated GFR 13 (L) >=60 mL/min/1.73 m?? [facility] Comment: The eGFR was calculated using the CKD-EP I equation. As with all creatinine based estimates of kidney function, eGFR values calculated with the CKD-EPI equation are not accurate in patients wi th acute kidney failure, extremes of body mass or the acutely ill. [email or web address] eGFR 15 (L) >=60 mL/min/1.73 m?? [facility] Comment: The eGFR was calculated using the CKD-EP I equation. As with all creatinine based estimates of kidney function, eGFR values calculated with the CKD-EPI equation are not accurate in patients wi th acute kidney failure, extremes of body mass or the acutely ill. [email or web address] Specimen Anatomical Collection Method Collection Time Receive d Time (Source) Location / / Volume Laterality Blood specimen 01/12/2019 5:44 AM 019 6:10 (specimen) EDT AM EDT Resulting Agency Comment Spec In Lab Whitney Kaplan APRN CHEMISTRY ORDERABLES Performing Organization Address City/State/[place] [address] EKG 12 Lead (01/12/2019 1:25 AM EDT) Component Value Ref Range Test Analysis Performed Pathologis t Method Time At Signature Ventricular rate 60 BPM MUSE SYSTEM Atrial Rate 60 BPM MUSE SYSTEM P-R Interval 150 ms MUSE SYSTEM QRS Duration 94 ms MUSE SYSTEM Q-T Interval 522 ms MUSE SYSTEM QTC Calculated 522 ms MUSE SYSTEM (Bezet) Calculated P Cecil 73 degrees MUSE SYSTEM Calculated R Cecil 21 degrees MUSE SYSTEM Calculated T Cecil -103 degrees MUSE SYSTEM INTERPRETATION Normal sinus rhythm MUSE SYSTEM Possible Left atrial enlargement Left ventricular hypertrophy with repolarization abnormality Prolonged QT Abnormal ECG When compared with ECG of 11-JAN-2019 07:05, QT has lengthened Confirmed by MD Ifeoma, Marcelo ([id number]) on 01/12/2019 9:26:49 AM Specimen Anatomical Collection Method Collection Time Receive d Time (Source) Location / / Volume Laterality 01/12/2019 1:25 AM 9 9:26 EDT AM EDT Leatha Ruby MD ECG ORDERABLES Performing Organization Address City/[facility]/ZIP Code Phon e Number MUSE SYSTEM Electrolytes, urine, random (01/11/2019 9:28 PM EDT) P athologist Signature U Sodium 88 mmol/L [facility] U Potassium 33 mmol/L [facility] U Chloride 98 mmol/L [facility] Specimen Anatomical Collection Method Collection Time Receive d Time (Source) Location / / Volume Laterality Urine specimen Urine / Unknown 01/11/2019 9:28 PM 12/27 (specimen) EDT 11:35 PM EDT Resulting Agency Comment Spec In Lab Konrad Melissa MD URINE ORDERABLES Performing Organization Address City/[facility]/[place] [address] Osmolality, urine, random (01/11/2019 9:28 PM EDT) P athologist Signature U Osmolality 278 50 - 1,200 [facility] mOsm/kg [facility] Specimen Anatomical Collection Method Collection Time Receive d Time (Source) Location / / Volume Laterality Urine specimen 01/11/2019 9:28 PM 019 9:38 (specimen) EDT PM EDT Resulting Agency Comment Spec In Lab Bertha Ruano APRN URINE ORDERABLES Performing Organization Address City/[facility] Phon e Number [address] Urea nitrogen, urine, random (01/11/2019 9:28 PM EDT) athologist Signature U Urea 150 mg/dL [facility] Specimen Anatomical Collection Method Collection Time Receive d Time (Source) Location / / Volume Laterality Urine specimen 01/11/2019 9:28 PM 019 9:37 (specimen) EDT PM EDT Resulting Agency Comment Spec In Lab Bertha Ruano APRN URINE ORDERABLES Performing Organization Address City/[facility] [place] [address] (ABNORMAL) Protein Electrophoresis, urine, random (01/11/2019 9:28 PM EDT) [facility] gist Method Time Signature U Protein Ran 34 (H) 0 - 12 [facility] mg/dL [facility] U Albumin 72 % total [facility] U Globulin 28 % total [facility] U M Band None [facility]ATORY U PEP See Note [facility] Comment: There is no evidence of clonal free ligh t chains in this patient's urine sample. Specimen Anatomical Collection Method Collection Time Receive d Time (Source) Location / / Volume Laterality Urine specimen 01/11/2019 9:28 PM 019 9:37 (specimen) EDT PM EDT Resulting Agency Comment Spec In Lab Whitney Kaplan [facility] TECH URINE ORDERABLES Performing Organization Address City/[facility]/ZIP Code [place] [address] Nuclear Pharmacologic Stress Cardiology (01/11/2019 12:03 PM EDT) Anatomical Region Laterality Modality Other Specimen (Source) Anatomical Location Collection Method / Collectio n Time Received Time / Laterality Volume Narrative This result has an attachment that is no t available. Whitney Scott Rosaura RAE [facility] ORDERABLES Heparin (unfractionated) Level (01/11/2019 12:03 PM EDT) athologist Signature Heparin UFH 0.27 IU/mL [facility] Comment: Guidelines for therapeutic unfractionate d heparin levels are summarized below. Heparin (Anti-Xa) levels should be deter mined in a plasma sample that has been drawn 6 hours after a dose change i.e., steady-state has been reached. DRUG ?Dos ing Schedule ? Target Peak Steady-State ?Heparin (Anti-Xa) Levels (Units/mL) Unfractionated ?Continuous inf usion ?0.3-0.7 Heparin ?0.3-0.6 fo r some neurology indications Specimen Anatomical Collection Method Collection Time Receive d Time (Source) Location / / Volume Laterality Blood specimen 01/11/2019 12:03 9 (specimen) PM EDT 12:19 PM EDT Resulting Agency Comment Spec In Lab Greyson Jolly MD HEMATOLOGY ORDERABLES Performing Organization Address City/State/[place] [address] NM Pharmacologic Stress CT Component (01/11/2019 11:02 AM EDT) Anatomical Region Laterality Modality Nuclear Medicine Specimen (Source) Anatomical Location Collection Method / Collectio n Time Received Time / Laterality Volume Narrative 01/11/2019 11:09 AM EDT EXAMINATION: NM PHARMACOLOGIC STRESS CT COMPONENT CLINICAL HISTORY: Study performed for at tenuation correction of the myocardial perfusion scan. TECHNIQUE: A limited field of view, non- contrast, non-breath hold, low dose CT scan of the region surrounding the myoca rdium was performed for the purpose of attenuation correction of the myocardial perfusion scan. COMPARISON: CT scan January 07, [address] FINDINGS: Bilateral pleural effusions, right great er than left are present. There is coronary artery and aortic calcification . An unchanged abdominal aortic aneurysm can be seen. Thank you for letting us participate in the care of this patient. For questions regarding this report, please contact e number below. ? Electronically signed by: Jennifer Medrano [facility] ([phone]), at 01/11/2019 11:09 AM Procedure Note Keny Rossi MD - 01/11/2019 EXAMINATION: NM PHARMACOLOGIC STRESS CT COMPONENT CLINICAL HISTORY: Study performed for at tenuation correction of the myocardial perfusion scan. TECHNIQUE: A limited field of view, non- contrast, non-breath hold, low dose CT scan of the region surrounding the myoca rdium was performed for the purpose of attenuation correction of the myocardial perfusion scan. COMPARISON: CT scan January 07, [address] FINDINGS: Bilateral pleural effusions, right great er than left are present. There is coronary artery and aortic calcification . An unchanged abdominal aortic aneurysm can be seen. Thank you for letting us participate in the care of this patient. For questions regarding this report, please contact e number below. Electronically signed by: Jennifer Medrano [facility] ([phone]), at 01/11/2019 11:09 AM Whitney Kaplan APRN [facility] NM ORDERABLES NM Pharmacologic Stress Myocardial Perfusion (01/11/2019 10:55 AM EDT) Anatomical Region Laterality Modality Nuclear Medicine Specimen (Source) Anatomical Location Collection Method / Collectio n Time Received Time / Laterality Volume Impressions 01/11/2019 11:40 AM EDT 1. ??No ischemia or scar. 2. ??Left ventricular function is mildly reduced with LVEF 47%. Wall motion abnormalities as above. Preliminary report signed by: Rafita Angel at 01/11/2019 11:35 AM I have personally reviewed the image(s) and the residents interpretation and agree with the findings, Gerard mackenzie 01/11/2019 11:40 AM Thank you for letting us participate in the care of this patient. For questions regarding this report, please contact e number below. ? Narrative 01/11/2019 11:40 AM EDT EXAMINATION: NM PHARMACOLOGIC STRESS MYOCARDIAL PERFUSION CLINICAL HISTORY: newly reduced ef TECHNIQUE: During rest, 8 mCi of technet ium-99m sestamibi was administered intravenously. Approximately 20 minutes later, SPECT images of the heart were obtained with reconstruction in the shor t, vertical long and horizontal long axis. The patient then received regadenoson in travenously at a dose of 0.4 mg. 20 seconds later, 25.8 mCi of technetium-99 m sestamibi was administered intravenously. Images of the heart were then again obtained with SPECT reconstruction. A low-dose CT scan was acquired for the purpose of attenuation correction COMPARISON: None FINDINGS: No fixed or reversible perfusion defects are present. Functional analysis: Myocardial function: Mild global hypokin esis. Left ventricular ejection fraction: 47 % (normal greater than than 50%). INCIDENTAL CT FINDINGS: See separate CT report for additional fi ndings. Procedure Note Gerard Bo MD - 01/11/2019Formatt ing of this note might be different from the original. EXAMINATION: NM PHARMACOLOGIC STRESS TRICIA CARDIAL PERFUSION CLINICAL HISTORY: newly reduced ef TECHNIQUE: During rest, 8 mCi of technet ium-99m sestamibi was administered intravenously. Approximately 20 minutes later, SPECT images of the heart were obtained with reconstruction in the shor t, vertical long and horizontal long axis. The patient then received regadenoson in travenously at a dose of 0.4 mg. 20 seconds later, 25.8 mCi of technetium-99 m sestamibi was administered intravenously. Images of the heart were then again obtained with SPECT reconstruction. A low-dose CT scan was acquired for the purpose of attenuation correction COMPARISON: None FINDINGS: No fixed or reversible perfusion defects are present. Functional analysis: Myocardial function: Mild global hypokin esis. Left ventricular ejection fraction: 47 % (normal greater than than 50%). INCIDENTAL CT FINDINGS: See separate CT report for additional fi ndings. IMPRESSION 1. No ischemia or scar. 2. Left ventricular function is mildly r educed with LVEF 47%. Wall motion abnormalities as above. Preliminary report signed by: Rafita Angel at 01/11/2019 11:35 AM I have personally reviewed the image(s) and the residents interpretation and agree with the findings, Gerrad mackenzie 01/11/2019 11:40 AM Thank you for letting us participate in the care of this patient. For questions regarding this report, please contact th e number below. Whitney Kaplan [facility] TECH IMG NM ORDERABLES EKG 12 Lead (01/11/2019 7:05 AM EDT) Component Value Ref Range Test Analysis Performed Pathologis t Method Time At Signature Ventricular rate 68 BPM MUSE SYSTEM Atrial Rate 68 BPM MUSE SYSTEM P-R Interval 146 ms MUSE SYSTEM QRS Duration 96 ms MUSE SYSTEM Q-T Interval 440 ms MUSE SYSTEM QTC Calculated 467 ms MUSE SYSTEM (Bezet) Calculated P Cecil 76 degrees MUSE SYSTEM Calculated R Cecil 25 degrees MUSE SYSTEM Calculated T Cecil -127 degrees MUSE SYSTEM INTERPRETATION Normal sinus rhythm MUSE SYSTEM Possible Left atrial enlargement Left ventricular hypertrophy with repolarization abnormality Abnormal ECG When compared with ECG of 10-JAN-2019 06:59, No significant change was found Confirmed by MD DAVENPORT ARMIN ([id number]) on 01/11/2019 8:53:45 AM Specimen Anatomical Collection Method Collection Time Receive d Time (Source) Location / / Volume Laterality 01/11/2019 7:05 AM 9 8:53 EDT AM EDT Whitney Kaplan [facility] TECH ECG ORDERABLES Performing Organization Address City/State/ZIP Code Phon e Number MUSE SYSTEM (ABNORMAL) Differential, Automated (01/11/2019 4:55 AM EDT) [facility] gist Method Time Signature Neutrophils % 72.2 % [facility] Neutr Abs (ANC) 8.11 (H) 1.70 - [facility] 6.10 [facility] x10(3)/[facility] LABORATORY Lymphocytes % 11.6 % [facility] Lymphocytes Abs 1.3 0.9 - 3.2 [facility] x10(3)/[facility] LABORATORY Monocytes % 7.2 % [facility] Monocyte Abs 0.8 0.3 - 0.9 [facility] x10(3)/[facility] LABORATORY Eosinophils % 7.4 % [facility] Eosinophils Abs 0.8 (H) 0.0 - 0.4 [facility] x10(3)/[facility] LABORATORY Basophils % 0.9 % [facility] Basophils Abs 0.1 0.0 - 0.1 [facility] x10(3)/[facility] LABORATORY Immature Gran % 0.70 % [facility] Comment: Immature granulocytes(IG's)percentage an d absolute count will include metamyelocytes, myelocytes, and promyelo cytes. Blood smears from CBCs yielding IG's will be scanned manually for concor dance. If this scan disagrees with the automated IG or if promyelocytes are not ed, a manual differential will be performed. Blanca Gran Abs 0.08 (H) 0.00 - 0.04 x10(3)/[facility] LABORATORY Specimen Anatomical Collection Method Collection Time Receive d Time (Source) Location / / Volume Laterality Blood specimen 01/11/2019 4:55 AM 019 5:07 (specimen) EDT AM EDT Resulting Agency Comment Spec In Lab Whitney Kaplan [facility] TECH HEMATOLOGY ORDERABLES Performing Organization Address City/State/[place] [address] (ABNORMAL) Hemogram (01/11/2019 4:55 AM EDT) [facility] Method Time Signature WBC 11.2 (H) 4.0 - 9.5 [place] x10(3)/[facility] LABORATORY RBC 3.57 (L) 4.00 - [place] [facility] 5.21 [facility] x10(6)/[facility] LABORATORY Hemoglobin 11.2 (L) 11.7 - [place] 15.5 gm/dL [facility] Hematocrit 32.7 (L) 35.7 - [place] [facility] 45.8 % [facility] MCV 91.6 82.6 - [facility] 94.4 [facility] MCH 31.4 27.1 - [place] 32.0 pg [facility]ORY MCHC 34.3 31.7 - [place] 35.0 gm/dL [facility] Platelets 286 145 - 357 [facility] x10(3)/[facility] LABORATORY RDWSD 49.4 (H) 37.0 - [place] 46.0 [facility] LABORATORY RDWCV 16.2 (H) 11.5 - [facility] TAMARA 14.1 % [facility]ORY MPV 10.5 7.6 - 12.9 [facility] TAMARA [facility] LABORATORY nRBC % Auto 0.4 % [facility] nRBC Abs Auto 0.040 (H) 0.000 - [place] 0.000 [facility] x10(3)/[facility] LABORATORY Specimen Anatomical Collection Method Collection Time Receive d Time (Source) Location / / Volume Laterality Blood specimen 01/11/2019 4:55 AM 019 5:07 (specimen) EDT AM EDT Resulting Agency Comment Spec In Lab Whitney Kaplan [facility] TECH HEMATOLOGY ORDERABLES Performing Organization Address City/State/[place] [address] Heparin (unfractionated) Level (01/11/2019 4:55 AM EDT) athologist Signature Heparin UFH 0.40 IU/mL [facility] Comment: Guidelines for therapeutic unfractionate d heparin levels are summarized below. Heparin (Anti-Xa) levels should be deter mined in a plasma sample that has been drawn 6 hours after a dose change i.e., steady-state has been reached. DRUG ?Dos ing Schedule ? Target Peak Steady-State ?Heparin (Anti-Xa) Levels (Units/mL) Unfractionated ?Continuous inf usion ?0.3-0.7 Heparin ?0.3-0.6 fo r some neurology indications Specimen Anatomical Collection Method Collection Time Receive d Time (Source) Location / / Volume Laterality Blood specimen 01/11/2019 4:55 AM 019 5:07 (specimen) EDT AM EDT Resulting Agency Comment Spec In Lab Konrad Melissa MD HEMATOLOGY ORDERABLES Performing Organization Address City/State/[place] [address] (ABNORMAL) BMP w/fasting Glucose (01/11/2019 4:55 AM EDT) athologist Signature Glucose 173 (H) 65 - 99 [facility] Fasting mg/dL [facility] Comment: ?Fasting* Glucose Interpretive C riteria Normal ?65-99 mg/dL Impaired Fasting glucose ?100-125 mg/dL Consistent with Diabetes Mellitus ? >or= 126 mg/dL *Fasting is defined as no caloric intake for at least 8 hours In the absence of unequivocal hypergly cemia a plasma glucose value of >or= 126 mg/dL should be repeated on a subseq uent day. Diagnosis and Classification of Diabetes Mellitus, Position Statement from the [employer] [employer]. ??Diabete s Care, Volume 33, Supplement 1, Apr 2009 BUN 58 (H) 8 - 18 mg/dL [facility] Creatinine 3.01 (H) 0.70 - 1.20 mg/dL [facility] Sodium 125 (L) 135 - 145 mmol/L [facility] Potassium 4.0 3.5 - 5.0 mmol/L [facility] Comment: Please note: ??Patients with WBC >100,00 0 may have falsely elevated Potassium levels. ??For accurate Potassium quantif ication in these patients send serum separator tube (gold top) for subsequent determinations. ??Contact the Clinical Chemistry Laboratory if there are any qu estions. Chloride 84 (L) 98 - 107 mmol/L [facility] CO2 26 22 - 31 mmol/L [facility] Anion Gap 15 5 - 15 mmol/L [facility] Calcium 9.1 8.5 - 10.5 mg/dL [facility] Estimated GFR 15 (L) >=60 mL/min/1.73 m?? [facility] Comment: The eGFR was calculated using the CKD-EP I equation. As with all creatinine based estimates of kidney function, eGFR values calculated with the CKD-EPI equation are not accurate in patients wi th acute kidney failure, extremes of body mass or the acutely ill. [email or web address] eGFR 17 (L) >=60 mL/min/1.73 m?? [facility] Comment: The eGFR was calculated using the CKD-EP I equation. As with all creatinine based estimates of kidney function, eGFR values calculated with the CKD-EPI equation are not accurate in patients wi th acute kidney failure, extremes of body mass or the acutely ill. [email or web address] Specimen Anatomical Collection Method Collection Time Receive d Time (Source) Location / / Volume Laterality Blood specimen 01/11/2019 4:55 AM 019 5:07 (specimen) EDT AM EDT Resulting Agency Comment Spec In Lab Whitney Sonia Kaplan APRN CHEMISTRY ORDERABLES Performing Organization Address [facility] [place] [address] Heparin (unfractionated) Level (01/10/2019 10:02 PM EDT) P athologist Signature Heparin UFH 0.10 IU/mL [facility] LABORATORY Comment: Guidelines for therapeutic unfractionate d heparin levels are summarized below. Heparin (Anti-Xa) levels should be deter mined in a plasma sample that has been drawn 6 hours after a dose change i.e., steady-state has been reached. DRUG ?Dos ing Schedule ? Target Peak Steady-State ?Heparin (Anti-Xa) Levels (Units/mL) Unfractionated ?Continuous inf usion ?0.3-0.7 Heparin ?0.3-0.6 fo r some neurology indications Specimen Anatomical Collection Method Collection Time Receive d Time (Source) Location / / Volume Laterality Blood specimen 01/10/2019 10:02 9 (specimen) PM EDT 10:09 PM EDT Resulting Agency Comment Spec In Lab Greyson Jolly MD HEMATOLOGY ORDERABLES Performing Organization Address [facility] [place] [address] Magnesium (01/10/2019 6:10 PM EDT) P athologist Signature Magnesium 0.75 0.69 - 1.07 [facility] mmol/L [facility] Specimen Anatomical Collection Method Collection Time Receive d Time (Source) Location / / Volume Laterality Blood specimen Venous Draw / 01/10/2019 6:10 PM 2018 6:18 (specimen) Unknown EDT PM EDT Resulting Agency Comment Spec In Lab Whitney Scott Rosaura RAE CHEMISTRY ORDERABLES Performing Organization Address City/[facility]/[place] [address] (ABNORMAL) Electrolytes panel (01/10/2019 6:10 PM EDT) athologist Signature Sodium 127 (L) 135 - 145 [facility] mmol/L [facility] Potassium 4.3 3.5 - 5.0 [facility] mmol/[facility] Comment: Please note: ??Patients with WBC >100,00 0 may have falsely elevated Potassium levels. ??For accurate Potassium quantif ication in these patients send serum separator tube (gold top) for subsequent determinations. ??Contact the Clinical Chemistry Laboratory if there are any qu estions. Chloride 86 (L) 98 - 107 mmol/L [facility] CO2 24 22 - 31 mmol/L [facility] Anion Gap 17 (H) 5 - 15 mmol/L [facility] Specimen Anatomical Collection Method Collection Time Receive d Time (Source) Location / / Volume Laterality Blood specimen 01/10/2019 6:10 PM 019 6:18 (specimen) EDT PM EDT Resulting Agency Comment Spec In Lab Whitney Sonia Kaplan APRN CHEMISTRY ORDERABLES Performing Organization Address City/[facility]/ZIP [facility] [place] [address] Heparin (unfractionated) Level (01/10/2019 3:55 PM EDT) athologist Signature Heparin UFH 0.33 IU/mL [facility] LABORATORY Comment: Guidelines for therapeutic unfractionate d heparin levels are summarized below. Heparin (Anti-Xa) levels should be deter mined in a plasma sample that has been drawn 6 hours after a dose change i.e., steady-state has been reached. DRUG ?Dos ing Schedule ? Target Peak Steady-State ?Heparin (Anti-Xa) Levels (Units/mL) Unfractionated ?Continuous inf usion ?0.3-0.7 Heparin ?0.3-0.6 fo r some neurology indications Specimen Anatomical Collection Method Collection Time Receive d Time (Source) Location / / Volume Laterality Blood specimen 01/10/2019 3:55 PM 019 4:16 (specimen) EDT PM EDT Resulting Agency Comment Spec In Lab Greyson Jolly MD HEMATOLOGY ORDERABLES Performing Organization Address City/State/ZIP Code Phon e Number [place] [address] Renal Artery Duplex, Unil (01/10/2019 10:05 AM EDT) Component Value Ref Test Analysis Performed At [facility] gist Range Method Time Signature VB Text Department: Vascular Surgery Lab VASCUBASE Report Patient: [id number] (PRETTY HARMON) CPT: 31883 ICD10: I70.1 Referring Physician: GREYSON JOLLY ?? Indications: ?? HTN, history AAA and R iliac to R kidney byp ass graft. ??? patency/stenosis of bypass graft ICD10 Diagnosis Code: I70.1 Findings: Infra Renal Aorta ? PSV (cm/s): 38 Renal Artery Mid, Right ? RI: 0.98 Renal Artery Distal, Right ? RI: 0.85 Mid Pole Renal Parenchyma, Right ? PSV (cm/s): 17 ? EDV (cm/s): 5 ? RI: 0.72 ? AT (ms): 34 Renal Hilum, Right ? AT (ms): 34 Kidney Length, Right ? Length (cm): 10.0 Renal Vein, Right ? Patent: Patent Right Ilio-Renal SEGMENT ?PSV (cm/s) ??EDV (cm/s) ??Location ?? Right Abdominal Graft, Inflo w Artery ?219 ? 0 ??Com Iliac ?? Right Abdominal Graft, Proxi mal Anastomosis ?Com Iliac ?? Right Abdominal Graft, Mid ? 28 ? 0 ? Right Abdominal Graft, Dista l ?33 ? 0 ? Right Abdominal Graft, Dista l Anastomosis ?60 ? 9 ??Renal ? Right Abdominal Graft, Outfl ow Artery ?Renal ? Interpretation: Right: Limited visualization due to overlying bowel gas. T here are elevated velocities of 219 cm/s in the RIGHT proximal common iliac ar norberto inflow (previously 248 cm/s); cannot exclude higher velocities in the iliac artery inflow as only a segment of the proximal common iliac artery could be visualized. Unable to visualize the proximal anastomos is and proximal bypass graft The mid to distal bypa ss graft is patent with low velocity, resistive flow noted. Previous exam also noted low velocities through the mid/distal graft. Patent renal vein. Patent abdominal aorta with an infra renal aneurysm measurin g 3.6 x 3.9 cm (previously 3.6 x 3.9 cm). Mural thrombus noted through the aneurysm sac. Previous Renal Studies: Date ? Right PSV - RAR ? Left PSV - RAR ? 320 ?3.37 ? 255 ?2. 68 ? 45 ? 1.15 ? 177 ?4. 54 ? 163 ?---- ? ---- ? --- - ? 37 ? ---- ? ---- ? --- - ? 59 ? 0.84 ? ---- ? --- - ? 60 Electronically Signed by: LEAH PEREZ on 2019-01-11 01:50:17 PM VB Text End of Report VASCUBASE Report Specimen (Source) Anatomical Collection Method Collection Time Re ceived Time Location / / Volume Laterality 01/10/2019 10:05 AM EDT Greyson Jolly MD VASCULAR ORDERABLES Performing Organization Address City/State/ZIP Code Phon e Number VASCUBASE Heparin (unfractionated) Level (01/10/2019 7:58 AM EDT) P athologist Signature Heparin UFH 0.26 IU/mL [facility] LABORATORY Comment: Guidelines for therapeutic unfractionate d heparin levels are summarized below. Heparin (Anti-Xa) levels should be deter mined in a plasma sample that has been drawn 6 hours after a dose change i.e., steady-state has been reached. DRUG ?Dos ing Schedule ? Target Peak Steady-State ?Heparin (Anti-Xa) Levels (Units/mL) Unfractionated ?Continuous inf usion ?0.3-0.7 Heparin ?0.3-0.6 fo r some neurology indications Specimen Anatomical Collection Method Collection Time Receive d Time (Source) Location / / Volume Laterality Blood specimen 01/10/2019 7:58 AM 019 8:16 (specimen) EDT AM EDT Resulting Agency Comment Spec In Lab Konrad Melissa MD HEMATOLOGY ORDERABLES Performing Organization Address City/State/[place] [address] EKG 12 Lead (01/10/2019 6:59 AM EDT) Component Value Ref Range Test Analysis Performed Pathologis t Method Time At Signature Ventricular rate 66 BPM MUSE SYSTEM Atrial Rate 66 BPM MUSE SYSTEM P-R Interval 146 ms MUSE SYSTEM QRS Duration 106 ms MUSE SYSTEM Q-T Interval 452 ms MUSE SYSTEM QTC Calculated 473 ms MUSE SYSTEM (Bezet) Calculated P Cecil 62 degrees MUSE SYSTEM Calculated R Cecil 21 degrees MUSE SYSTEM Calculated T Cecil -90 degrees MUSE SYSTEM INTERPRETATION Normal sinus rhythm MUSE SYSTEM Possible Left atrial enlargement Left ventricular hypertrophy with repolarization abnormality Abnormal ECG When compared with ECG of 09-JAN-2019 08:39, (unconfirmed) T wave inversion more evident in Anterior leads Confirmed by MD Edouard Gregory A. ([id number]) on 01/10/2019 9 :29:56 PM Specimen Anatomical Collection Method Collection Time Receive d Time (Source) Location / / Volume Laterality 01/10/2019 6:59 AM 9 9:29 EDT PM EDT Whitney Kaplan APRN ECG ORDERABLES Performing Organization Address City/State/ZIP Code Phon e Number MUSE SYSTEM (ABNORMAL) pro-Brain Natriuretic Peptide (01/10/2019 12:51 AM EDT) P athologist Signature ProBNP >41124 (H) <=125 [facility] pg/mL [facility] LABORATORY Specimen Anatomical Collection Method Collection Time Receive d Time (Source) Location / / Volume Laterality Blood specimen Venous Draw / 01/10/2019 12:51 01/11/20 19 3:06 (specimen) Unknown AM EDT AM EDT Resulting Agency Comment Spec In Lab Whitney Kaplan KYRA CHEMISTRY ORDERABLES Performing Organization Address City/State/ZIP Code [place] [address] (ABNORMAL) Differential, Automated (01/10/2019 12:51 AM EDT) [facility] gist Method Time Signature Neutrophils % 72.5 % [facility] LABORATORY Neutr Abs (ANC) 8.35 (H) 1.70 - [facility] 6.10 [facility] x10(3)/[facility] LABORATORY Lymphocytes % 11.9 % [facility] LABORATORY Lymphocytes Abs 1.4 0.9 - 3.2 [facility] x10(3)/[facility] LABORATORY Monocytes % 8.8 % [facility] LABORATORY Monocyte Abs 1.0 (H) 0.3 - 0.9 [facility] x10(3)/[facility] LABORATORY Eosinophils % 5.6 % [facility] LABORATORY Eosinophils Abs 0.6 (H) 0.0 - 0.4 [facility] x10(3)/[facility] LABORATORY Basophils % 0.4 % [facility] LABORATORY Basophils Abs 0.0 0.0 - 0.1 [facility] x10(3)/[facility] LABORATORY Immature Gran % 0.80 % [facility] LABORATORY Comment: Immature granulocytes(IG's)percentage an d absolute count will include metamyelocytes, myelocytes, and promyelo cytes. Blood smears from CBCs yielding IG's will be scanned manually for concor dance. If this scan disagrees with the automated IG or if promyelocytes are not ed, a manual differential will be performed. Blanca Gran Abs 0.09 (H) 0.00 - 0.04 x10(3)/[facility] LABORATORY Specimen Anatomical Collection Method Collection Time Receive d Time (Source) Location / / Volume Laterality Blood specimen 01/10/2019 12:51 9 1:04 (specimen) AM EDT AM EDT Resulting Agency Comment Spec In Lab Whitney Scott Rosaura RAE HEMATOLOGY ORDERABLES Performing Organization Address City/State/ZIP [place] [address] (ABNORMAL) Hemogram (01/10/2019 12:51 AM EDT) [facility] gist Method Time Signature WBC 11.5 (H) 4.0 - 9.5 [facility] LABORATORY RBC 3.43 (L) 4.00 - [place] [facility] 5.21 [facility] x10(6)/[facility] LABORATORY Hemoglobin 10.6 (L) 11.7 - [facility] 15.5 gm/dL [facility] LABORATORY Hematocrit 31.2 (L) 35.7 - [facility] TAMARA 45.8 % [facility] LABORATORY MCV 91.0 82.6 - [facility] 94.4 [facility] LABORATORY MCH 30.9 27.1 - [place] [facility] 32.0 pg [facility] LABORATORY MCHC 34.0 31.7 - [facility] TAMARA 35.0 gm/dL [facility] LABORATORY Platelets 281 145 - 357 [facility] x10(3)/[facility] LABORATORY RDWSD 50.8 (H) 37.0 - [facility] TAMARA 46.0 [facility] LABORATORY RDWCV 16.1 (H) 11.5 - [facility] TAMARA 14.1 % [facility] LABORATORY MPV 10.8 7.6 - 12.9 [facility] nRBC % Auto 0.3 % [facility] LABORATORY nRBC Abs Auto 0.030 (H) 0.000 - [place] 0.000 [facility] x10(3)/[facility] LABORATORY Specimen Anatomical Collection Method Collection Time Receive d Time (Source) Location / / Volume Laterality Blood specimen 01/10/2019 12:51 9 1:04 (specimen) AM EDT AM EDT Resulting Agency Comment Spec In Lab Whitney Sonia Kaplan APRN HEMATOLOGY ORDERABLES Performing Organization Address City/[facility] [place] [address] Heparin (unfractionated) Level (01/10/2019 12:51 AM EDT) athologist Signature Heparin UFH 0.18 IU/mL [facility] LABORATORY Comment: Guidelines for therapeutic unfractionate d heparin levels are summarized below. Heparin (Anti-Xa) levels should be deter mined in a plasma sample that has been drawn 6 hours after a dose change i.e., steady-state has been reached. DRUG ?Dos ing Schedule ? Target Peak Steady-State ?Heparin (Anti-Xa) Levels (Units/mL) Unfractionated ?Continuous inf usion ?0.3-0.7 Heparin ?0.3-0.6 fo r some neurology indications Specimen Anatomical Collection Method Collection Time Receive d Time (Source) Location / / Volume Laterality Blood specimen 01/10/2019 12:51 9 1:04 (specimen) AM EDT AM EDT Resulting Agency Comment Spec In Lab Konrad Melissa MD HEMATOLOGY ORDERABLES Performing Organization Address [facility]/ZIP Code [place] [address] (ABNORMAL) BMP w/fasting Glucose (01/10/2019 12:51 AM EDT) athologist Signature Glucose 114 (H) 65 - 99 [facility] Fasting mg/dL [facility] LABORATORY Comment: ?Fasting* Glucose Interpretive C riteria Normal ?65-99 mg/dL Impaired Fasting glucose ?100-125 mg/dL Consistent with Diabetes Mellitus ? >or= 126 mg/dL *Fasting is defined as no caloric intake for at least 8 hours In the absence of unequivocal hypergly cemia a plasma glucose value of >or= 126 mg/dL should be repeated on a subseq uent day. Diagnosis and Classification of Diabetes Mellitus, Position Statement from the [employer] [employer]. ??Diabete s Care, Volume 33, Supplement 1, Apr 2009 BUN 61 (H) 8 - 18 mg/dL [facility] LABORATORY Creatinine 3.23 (H) 0.70 - 1.20 mg/dL [facility] LABORATORY Sodium 131 (L) 135 - 145 mmol/L [facility] LABORATORY Potassium 3.6 3.5 - 5.0 mmol/L [facility] LABORATORY Comment: Please note: ??Patients with WBC >100,00 0 may have falsely elevated Potassium levels. ??For accurate Potassium quantif ication in these patients send serum separator tube (gold top) for subsequent determinations. ??Contact the Clinical Chemistry Laboratory if there are any qu estions. Chloride 89 (L) 98 - 107 mmol/L [facility] LABORATORY CO2 25 22 - 31 mmol/L [facility] LABORATORY Anion Gap 17 (H) 5 - 15 mmol/L [facility] LABORATORY Calcium 8.9 8.5 - 10.5 mg/dL [facility] LABORATORY Estimated GFR 14 (L) >=60 mL/min/1.73 m?? [facility] LABORATORY Comment: The eGFR was calculated using the CKD-EP I equation. As with all creatinine based estimates of kidney function, eGFR values calculated with the CKD-EPI equation are not accurate in patients wi th acute kidney failure, extremes of body mass or the acutely ill. http://GutCheck/DHMCnkf eGFR 16 (L) >=60 mL/min/1.73 m?? [facility] LABORATORY Comment: The eGFR was calculated using the CKD-EP I equation. As with all creatinine based estimates of kidney function, eGFR values calculated with the CKD-EPI equation are not accurate in patients wi th acute kidney failure, extremes of body mass or the acutely ill. [email or web address]/DHMCnkf Specimen Anatomical Collection Method Collection Time Receive d Time (Source) Location / / Volume Laterality Blood specimen 01/10/2019 12:51 9 1:04 (specimen) AM EDT AM EDT Resulting Agency Comment Spec In Lab Whitney Kaplan APRN CHEMISTRY ORDERABLES Performing Organization Address City/[facility] [place] [address] Heparin (unfractionated) Level (01/09/2019 7:06 PM EDT) athologist Signature Heparin UFH 0.22 IU/mL [facility] LABORATORY Comment: Guidelines for therapeutic unfractionate d heparin levels are summarized below. Heparin (Anti-Xa) levels should be deter mined in a plasma sample that has been drawn 6 hours after a dose change i.e., steady-state has been reached. DRUG ?Dos ing Schedule ? Target Peak Steady-State ?Heparin (Anti-Xa) Levels (Units/mL) Unfractionated ?Continuous inf usion ?0.3-0.7 Heparin ?0.3-0.6 fo r some neurology indications Specimen Anatomical Collection Method Collection Time Receive d Time (Source) Location / / Volume Laterality Blood specimen 01/09/2019 7:06 PM 019 7:15 (specimen) EDT PM EDT Resulting Agency Comment Spec In Lab Konrad Melissa MD HEMATOLOGY ORDERABLES Performing Organization Address [facility] Phon e Number [address] Magnesium (01/09/2019 7:06 PM EDT) athologist Signature Magnesium 0.83 0.69 - 1.07 [facility] mmol/L [facility] LABORATORY Specimen Anatomical Collection Method Collection Time Receive d Time (Source) Location / / Volume Laterality Blood specimen 01/09/2019 7:06 PM 019 7:15 (specimen) EDT PM EDT Resulting Agency Comment Spec In Lab Whitney Scott Rosaura RAE CHEMISTRY ORDERABLES Performing Organization Address City/State/ZIP Code Phon e Number [address] (ABNORMAL) Electrolytes panel (01/09/2019 7:06 PM EDT) athologist Signature Sodium 128 (L) 135 - 145 [facility] mmol/L [facility] LABORATORY Potassium 3.9 3.5 - 5.0 [facility] mmol/L [facility] LABORATORY Comment: Please note: ??Patients with WBC >100,00 0 may have falsely elevated Potassium levels. ??For accurate Potassium quantif ication in these patients send serum separator tube (gold top) for subsequent determinations. ??Contact the Clinical Chemistry Laboratory if there are any qu estions. Chloride 90 (L) 98 - 107 mmol/L [facility] LABORATORY CO2 22 22 - 31 mmol/L [facility] LABORATORY Anion Gap 16 (H) 5 - 15 mmol/L [facility] LABORATORY Specimen Anatomical Collection Method Collection Time Receive d Time (Source) Location / / Volume Laterality Blood specimen 01/09/2019 7:06 PM 019 7:15 (specimen) EDT PM EDT Resulting Agency Comment Spec In Lab Whitney Sonia Kaplan APRN CHEMISTRY ORDERABLES Performing Organization Address City/[facility]/ZIP Code Phon e Number [address] (ABNORMAL) T3, free (01/09/2019 12:44 PM EDT) athologist Signature T3, Free 1.3 (L) 2.0 - 4.4 [facility] pg/mL [facility] LABORATORY Specimen Anatomical Collection Method Collection Time Receive d Time (Source) Location / / Volume Laterality Blood specimen 01/09/2019 12:44 9 1:06 (specimen) PM EDT PM EDT Resulting Agency Comment Spec In Lab Whitney Scott Rosaura RAE CHEMISTRY ORDERABLES Performing Organization Address City/[facility]/ZIP [facility] Phon e Number [address] Sedimentation rate (01/09/2019 12:44 PM EDT) P athologist Signature Sed Rate 15 0 - 20 [facility] mm/hr [facility] LABORATORY Specimen Anatomical Collection Method Collection Time Receive d Time (Source) Location / / Volume Laterality Blood specimen 01/09/2019 12:44 9 1:06 (specimen) PM EDT PM EDT Resulting Agency Comment Spec In Lab Whitney Scott Rosaura [facility] TECH HEMATOLOGY ORDERABLES Performing Organization Address [facility] [place] [address] CMV Antibody, IgM (01/09/2019 12:44 PM EDT) P athologist Signature CMV IgM Negative Negative [facility] LABORATORY Specimen Anatomical Collection Method Collection Time Receive d Time (Source) Location / / Volume Laterality Blood specimen 01/09/2019 12:44 9 7:48 (specimen) PM EDT AM EDT Resulting Agency Comment Spec In Lab Whitney Scott Rosaura [facility] TECH IMMUNOLOGY ORDERABLES Performing Organization Address City/[facility] [place] [address] CMV Antibody, IgG (01/09/2019 12:44 PM EDT) P athologist Signature CMV IgG Negative Negative [facility] LABORATORY Specimen Anatomical Collection Method Collection Time Receive d Time (Source) Location / / Volume Laterality Blood specimen 01/09/2019 12:44 9 7:48 (specimen) PM EDT AM EDT Resulting Agency Comment Spec In Lab Whitney Scott Rosaura NELSONN IMMUNOLOGY ORDERABLES Performing Organization Address City/[facility]/ZIP Code [place] [address] Parvovirus B19 Antibody IgG and IgM (01/09/2019 12:44 PM EDT) Analysis Performed At Patho logist Time Signature Parvo B19 IgG Negative Negative [facility] LABORATORY Comment: Test Performed by: [facility] [address] [place] [address] Psychologist Counseling: Prashant Hilario M.D. Ph. D.; CLIA# [id number] Parvo B19 IgM Negative Negative [facility] LABORATORY Comment: Test Performed by: [facility] [address] [facility] [place] [address] Psychologist Counseling: Prashant Hilario M.D. Ph. D.; CLIA# [id number] Parvo B19 Intrp SEE COMMENTS [facility] LABORATORY Comment: No antibody to Parvovirus B19 detected. Acute infection cannot be ruled out as antibody levels m ay be below the limit of detection. If clinically indica ti, a second serum should be submitted in 14-21 days. ADDITIONAL INFORMATIO N This test has been modified from the man ufacturer's instructions. Its performance characteri stics were determined by [facility] in a manner co nsistent with CLIA requirements. This test has not bee n cleared or approved by the U.S. Food and Drug Admin istration. Test Performed by: [facility] [address] [place] [address] Psychologist Counseling: Prashant Hilario M.D. Ph. D.; CLIA# [id number] Specimen Anatomical Collection Method Collection Time Receive d Time (Source) Location / / Volume Laterality Blood specimen 01/09/2019 12:44 9 8:32 (specimen) PM EDT AM EDT Resulting Agency Comment Spec In Lab Whitney Kaplan APRN IMMUNOLOGY ORDERABLES Performing Organization Address City/State/ZIP Code Phon e Number [place] Lyme IgG & IgM Antibody (01/09/2019 12:44 PM EDT) P athologist Signature Lyme Screening Neg Neg [facility] LABORATORY Specimen Anatomical Collection Method Collection Time Receive d Time (Source) Location / / Volume Laterality Blood specimen 01/09/2019 12:44 9 7:32 (specimen) PM EDT AM EDT Resulting Agency Comment Spec In Lab Whitney Kaplan APRN IMMUNOLOGY ORDERABLES Performing Organization Address City/[facility]/ZIP Code Phon e Number [address] HSV 1 and 2 IgG Antibodies (01/09/2019 12:44 PM EDT) P athologist Signature HSV Type 1 Neg Neg [facility] Antibody, [facility] LABORATORY HSV Type 2 Neg Neg [facility] Antibody, [facility] LABORATORY Specimen Anatomical Collection Method Collection Time Receive d Time (Source) Location / / Volume Laterality Blood specimen 01/09/2019 12:44 9 7:48 (specimen) PM EDT AM EDT Resulting Agency Comment Spec In Lab Whitney Kaplan APRN IMMUNOLOGY ORDERABLES Performing Organization Address City/[facility]/ZIP Code Phon e Number [address] HIV Screen, 4th Generation ([facility]/CGP/APD) (01/09/2019 12:44 PM EDT) Analysis Performed At Patho logist Time Signature HIV-1/2 Ab and Negative Negative [facility] LABORATORY Comment: This 4th Generation HIV test [...] Location / / Volume Laterality Blood specimen 01/09/2019 12:44 9 1:06 (specimen) PM EDT PM EDT Resulting Agency Comment Spec In Lab Whitney Kaplan APRN IMMUNOLOGY ORDERABLES Performing Organization Address City/[facility]/[place] [address] Hepatitis C Antibody (01/09/2019 12:44 PM EDT) Analysis Performed At Patho logist Time Signature Hepatitis C Ab Negative Negative [facility] LABORATORY Specimen Anatomical Collection Method Collection Time Receive d Time (Source) Location / / Volume Laterality Blood specimen 01/09/2019 12:44 9 1:06 (specimen) PM EDT PM EDT Resulting Agency Comment Spec In Lab Whitney Kaplan [employer] [facility] TECH IMMUNOLOGY ORDERABLES Performing Organization Address City/[facility]/[place] [address] (ABNORMAL) Hepatitis B Core Antibody, Total (01/09/2019 12:44 PM EDT) Patholo gist Method Time Signature Hep B Core Ab Positive (A) Negative [facility] LABORATORY Specimen Anatomical Collection Method Collection Time Receive d Time (Source) Location / / Volume Laterality Blood specimen 01/09/2019 12:44 9 1:06 (specimen) PM EDT PM EDT Resulting Agency Comment Spec In Lab Whitney Kaplan KYRA CHEMISTRY ORDERABLES Performing Organization Address City/[facility]/[place] [address] Hepatitis B Surface Antibody (01/09/2019 12:44 PM EDT) P athologist Signature HepB Surface <3.5 IU/L [facility] Ab Quant [facility] LABORATORY Comment: HepB Surface Ab Quant: Unvaccinated: < 8.5 IU/L Vaccinated: > 11.5 IU/L HepB Surface Ab Negative [facility] LABORATORY Comment: Patient is presumed to be not vaccinated or immune to HBV infection. Expected Results: Vaccinated: Positive Unvaccinated: Negative Specimen Anatomical Collection Method Collection Time Receive d Time (Source) Location / / Volume Laterality Blood specimen 01/09/2019 12:44 9 1:06 (specimen) PM EDT PM EDT Resulting Agency Comment Spec In Lab Whitney Kaplan KYRA IMMUNOLOGY ORDERABLES Performing Organization Address City/[facility]/[place] [address] Hepatitis B Surface Antigen (01/09/2019 12:44 PM EDT) Analysis Performed At Patho logist Time Signature HepB Surface Negative Negative [facility] LABORATORY Specimen Anatomical Collection Method Collection Time Receive d Time (Source) Location / / Volume Laterality Blood specimen 01/09/2019 12:44 9 1:06 (specimen) PM EDT PM EDT Resulting Agency Comment Spec In Lab Whitney Kaplan KYRA CHEMISTRY ORDERABLES Performing Organization Address City/[facility]/[place] [address] (ABNORMAL) Hepatitis A Antibody, Total (01/09/2019 12:44 PM EDT) Patholo gist Method Time Signature Hepatitis A Positive (A) Negative [facility] LABORATORY Specimen Anatomical Collection Method Collection Time Receive d Time (Source) Location / / Volume Laterality Blood specimen 01/09/2019 12:44 9 1:06 (specimen) PM EDT PM EDT Resulting Agency Comment Spec In Lab Whitney Kaplan KYRA IMMUNOLOGY ORDERABLES Performing Organization Address City/[facility]/[place] [address] (ABNORMAL) Free Light Chains, Serum (01/09/2019 12:44 PM EDT) Analysis Performed At Patho logist Time Signature [facility] Free 6.94 (H) 0.81 - [place] [facility] Light Chains 2.98 mg/dL [facility] [facility] Lambda Free 5.39 (H) 0.86 - ZAKIA TAMARA Light Chains 1.99 mg/dL [facility] [place]/Lambda 1.2876 0.5000 - ZAKIA TAMARA Free Light 2.4300 [facility] LABORATORY Comment: Please be advised that following a multi -institution study the reference interval for Serum Free Light Chains was updated May 08, 2017. Specimen Anatomical Collection Method Collection Time Receive d Time (Source) Location / / Volume Laterality Blood specimen 01/09/2019 12:44 9 1:06 (specimen) PM EDT PM EDT Resulting Agency Comment Spec In Lab Whitney Scott Rosaura RAE CHEMISTRY ORDERABLES Performing Organization Address City/[facility]/[place] [address] (ABNORMAL) Protein Electrophoresis, serum (01/09/2019 12:44 PM EDT) Patholo gist Method Time Signature Total Prot 6.4 6.1 - 8.0 ZAKIA Elec gm/dL [facility] Albumin Elect 3.82 3.60 - 6.00 ZAKIA gm/dL [facility] Alpha1-Globul 0.44 (H) 0.10 - 0.30 ZAKIA in gm/dL [facility] Alpha2-Globul 0.78 0.40 - 0.90 ZAKIA in gm/dL [facility] Beta Globulin 0.72 0.50 - 1.00 [facility] gm/dL [facility] Gamma 0.64 0.50 - 1.30 [facility] Globulin gm/dL [facility] M1 Band None None [facility] Detected Detected [facility] Specimen Anatomical Collection Method Collection Time Receive d Time (Source) Location / / Volume Laterality Blood specimen 01/09/2019 12:44 9 1:06 (specimen) PM EDT PM EDT Resulting Agency Comment Spec In Lab Whitney Scott Rosaura [facility] TECH CHEMISTRY ORDERABLES Performing Organization Address City/[facility]/[place] [address] Rheumatoid factor, quant (01/09/2019 12:44 PM EDT) P athologist Signature RF <10 <=14 IU/mL [facility]OR[facility]ORY Specimen Anatomical Collection Method Collection Time Receive d Time (Source) Location / / Volume Laterality Blood specimen 01/09/2019 12:44 9 1:06 (specimen) PM EDT PM EDT Resulting Agency Comment Spec In Lab Whitney Scott Rosaura [facility] TECH IMMUNOLOGY ORDERABLES Performing Organization Address City/[facility]/[place] [address] KAYLEE ([facility]P) (01/09/2019 12:44 PM EDT) athologist Signature KAYLEE Neg Neg [facility] Specimen Anatomical Collection Method Collection Time Receive d Time (Source) Location / / Volume Laterality Blood specimen 01/09/2019 12:44 9 7:48 (specimen) PM EDT AM EDT Resulting Agency Comment Spec In Lab Whitney Sonia Kaplan APRN IMMUNOLOGY ORDERABLES Performing Organization Address City/[facility]/ZIP Code Phon e Number [address] Vitamin D, 25-Hydroxy (01/09/2019 12:44 PM EDT) athologist Signature 25-OH Vit D 52 30 - 100 [facility] Total ng/mL [facility] LABORATORY Comment: Deficient <10 ng/mL Insufficient 10 to 29 ng/mL Sufficient 30 to 100 ng/mL Potential Intoxication >100 ng/mL According to the [place] National Osteoporosi s Foundation, Vitamin D concentrations >30 ng/mL are sufficient to protect bone health. ??The National Kidney Foundation has similarly stated that pat ients with Vitamin D concentrations <30ng/mL should be considered to be insu fficient or deficient. http://[employer]/nkf-guidelines http://[employer]/nejm-VitD The [employer] Vitamin D Immunoassay detec ts both 25-OH Vitamin D2 and 25-OH Vitamin D3, but only a total Vitamin D c oncentration is reported. Specimen Anatomical Collection Method Collection Time Receive d Time (Source) Location / / Volume Laterality Blood specimen 01/09/2019 12:44 9 7:48 (specimen) PM EDT AM EDT Resulting Agency Comment Spec In Lab Whitney Sonia Kaplan APRN CHEMISTRY ORDERABLES Performing Organization Address City/State/[place] [address] (ABNORMAL) Iron and TIBC (01/09/2019 12:44 PM EDT) athologist Signature Iron 49 30 - 150 [facility] TAMARA mcg/dL [facility] TIBC 319 250 - 450 [facility] m[facility] Iron Saturation 15 (L) 20 - 50 % [facility] Specimen Anatomical Collection Method Collection Time Receive d Time (Source) Location / / Volume Laterality Blood specimen 01/09/2019 12:44 9 1:06 (specimen) PM EDT PM EDT Resulting Agency Comment Spec In Lab Whitney Scott Rosaura [facility] TECH CHEMISTRY ORDERABLES Performing Organization Address City/State/[place] [address] (ABNORMAL) Ferritin (01/09/2019 12:44 PM EDT) athologist Signature Ferritin 774 (H) 30 - 400 ZAKIA TAMARA ng/mL [facility] LAB[facility]ORY Comment: Pediatric reference ranges not verified at [facility], interpret with caution. Reference ranges for females greater letty n 50 years of age approach values for men, i.e., 30-400 ng/mL. Specimen Anatomical Collection Method Collection Time Receive d Time (Source) Location / / Volume Laterality Blood specimen 01/09/2019 12:44 9 1:06 (specimen) PM EDT PM EDT Resulting Agency Comment Spec In Lab Whitney Lamann [facility] TECH CHEMISTRY ORDERABLES Performing Organization Address City/[facility]/[place] [address] Folate, serum (01/09/2019 12:44 PM EDT) athologist Signature Folate Lvl 10.5 4.8 - 24.2 ZAKIA TAMARA ng/mL [facility]ORY Specimen Anatomical Collection Method Collection Time Receive d Time (Source) Location / / Volume Laterality Blood specimen 01/09/2019 12:44 9 1:06 (specimen) PM EDT PM EDT Resulting Agency Comment Spec In Lab Whitney Lamann [facility] TECH CHEMISTRY ORDERABLES Performing Organization Address City/State/[place] [address] (ABNORMAL) Vitamin B12 (01/09/2019 12:44 PM EDT) Analysis Performed At Patho logist Time Signature Vitamin B-12 1,351 (H) 232 - ZAKIA ZHANG 1,245 [facility] pg/[facility] LABORATORY Specimen Anatomical Collection Method Collection Time Receive d Time (Source) Location / / Volume Laterality Blood specimen 01/09/2019 12:44 9 1:06 (specimen) PM EDT PM EDT Resulting Agency Comment Spec In Lab Whitney Kaplan KYRA CHEMISTRY ORDERABLES Performing Organization Address City/[facility]/[place] [address] TSH (01/09/2019 12:44 PM EDT) P athologist Signature TSH 4.18 0.27 - 4.20 ZAKIA ZHANG mcIU/mL [facility] LABOR[facility]ORY Specimen Anatomical Collection Method Collection Time Receive d Time (Source) Location / / Volume Laterality Blood specimen 01/09/2019 12:44 9 1:06 (specimen) PM EDT PM EDT Resulting Agency Comment Spec In Lab Whitney Kaplan [facility] TECH CHEMISTRY ORDERABLES Performing Organization Address City/[facility]/[place] [address] Heparin (unfractionated) Level (01/09/2019 9:43 AM EDT) P athologist Signature Heparin UFH 0.19 IU/mL [facility] TAMARA [facility] LABORATORY Comment: Guidelines for therapeutic unfractionate d heparin levels are summarized below. Heparin (Anti-Xa) levels should be deter mined in a plasma sample that has been drawn 6 hours after a dose change i.e., steady-state has been reached. DRUG ?Dos ing Schedule ? Target Peak Steady-State ?Heparin (Anti-Xa) Levels (Units/mL) Unfractionated ?Continuous inf usion ?0.3-0.7 Heparin ?0.3-0.6 fo r some neurology indications Specimen Anatomical Collection Method Collection Time Receive d Time (Source) Location / / Volume Laterality Blood specimen 01/09/2019 9:43 AM 019 9:48 (specimen) EDT AM EDT Resulting Agency Comment Spec In Lab Greyson Jolly MD HEMATOLOGY ORDERABLES Performing Organization Address City/State/ZIP Code [place] [address] EKG 12 Lead (01/09/2019 8:39 AM EDT) Component Value Ref Range Test Analysis Performed Pathologis t Method Time At Signature Ventricular rate 80 BPM MUSE SYSTEM Atrial Rate 80 BPM MUSE SYSTEM P-R Interval 150 ms MUSE SYSTEM QRS Duration 94 ms MUSE SYSTEM Q-T Interval 402 ms MUSE SYSTEM QTC Calculated 463 ms MUSE SYSTEM (Bezet) Calculated P Cecil 63 degrees MUSE SYSTEM Calculated R Cecil 22 degrees MUSE SYSTEM Calculated T Cecil -105 degrees MUSE SYSTEM INTERPRETATION Normal sinus rhythm MUSE SYSTEM Possible Left atrial enlargement Left ventricular hypertrophy with repolarization abnormality Abnormal ECG When compared with ECG of 07-JAN-2019 22:51, T wave inversion now evident in Anterior leads Confirmed by MD Frandy, Whitney Keith ([id number]) on 01/10/2019 1:41: 53 PM Specimen Anatomical Collection Method Collection Time Receive d Time (Source) Location / / Volume Laterality 01/09/2019 8:39 AM 9 1:41 EDT PM EDT Whitney Kaplan APRN ECG ORDERABLES Performing Organization Address City/State/ZIP Code Phon e Number MUSE SYSTEM (ABNORMAL) T4, free (01/09/2019 2:34 AM EDT) P athologist Signature Free T4 1.74 (H) 0.93 - 1.70 [facility] ng/dL [facility] LABORATORY Specimen Anatomical Collection Method Collection Time Receive d Time (Source) Location / / Volume Laterality Blood specimen Venous Draw / 01/09/2019 2:34 AM 2018 3:13 (specimen) Unknown EDT AM EDT Resulting Agency Comment Spec In Lab Whitney Kaplan KYRA CHEMISTRY ORDERABLES Performing Organization Address City/State/ZIP Code [place] [address] (ABNORMAL) Differential, Automated (01/09/2019 2:34 AM EDT) [facility] Method Time Signature Neutrophils % 74.1 % [facility] LABORATORY Neutr Abs (ANC) 9.14 (H) 1.70 - [facility] 6.10 [facility] x10(3)/[facility] LABORATORY Lymphocytes % 10.5 % [facility] LABORATORY Lymphocytes Abs 1.3 0.9 - 3.2 [facility] x10(3)/[facility] LABORATORY Monocytes % 8.0 % [facility] LABORATORY Monocyte Abs 1.0 (H) 0.3 - 0.9 [facility] x10(3)/[facility] LABORATORY Eosinophils % 5.7 % [facility] LABORATORY Eosinophils Abs 0.7 (H) 0.0 - 0.4 [facility] x10(3)/[facility] LABORATORY Basophils % 0.6 % [facility] LABORATORY Basophils Abs 0.1 0.0 - 0.1 [facility] x10(3)/[facility] LABORATORY Immature Gran % 1.10 % [facility] LABORATORY Comment: Immature granulocytes(IG's)percentage an d absolute count will include metamyelocytes, myelocytes, and promyelo cytes. Blood smears from CBCs yielding IG's will be scanned manually for concor dance. If this scan disagrees with the automated IG or if promyelocytes are not ed, a manual differential will be performed. Blanca Gran Abs 0.14 (H) 0.00 - 0.04 x10(3)/[facility] LABORATORY Specimen Anatomical Collection Method Collection Time Receive d Time (Source) Location / / Volume Laterality Blood specimen 01/09/2019 2:34 AM 019 2:39 (specimen) EDT AM EDT Resulting Agency Comment Spec In Lab Whitney Kaplan KYRA HEMATOLOGY ORDERABLES Performing Organization Address City/State/ZIP Code [place] [address] (ABNORMAL) Hemogram (01/09/2019 2:34 AM EDT) Patholo gist Method Time Signature WBC 12.4 (H) 4.0 - 9.5 [facility] LABORATORY RBC 3.43 (L) 4.00 - ZAKIA TAMARA 5.21 [facility] x10(6)/[facility] LABORATORY Hemoglobin 10.6 (L) 11.7 - [facility] 15.5 gm/dL [facility] LAB[facility]ATORY Hematocrit 30.9 (L) 35.7 - [facility] 45.8 % [facility] LABORATORY MCV 90.1 82.6 - [facility] 94.4 [facility] LABORATORY MCH 30.9 27.1 - ZAKIA TAMARA 32.0 pg [facility] LABORATORY MCHC 34.3 31.7 - [facility] TAMARA 35.0 gm/dL [facility] LABORATORY Platelets 271 145 - 357 [facility] x10(3)/[facility] LABORATORY RDWSD 49.5 (H) 37.0 - [facility] TAMARA 46.0 [facility] LABORATORY RDWCV 15.8 (H) 11.5 - [facility] TAMARA 14.1 % [facility] LABORATORY MPV 10.8 7.6 - 12.9 [facility] LABORATORY nRBC % Auto 0.5 % [facility] LABORATORY nRBC Abs Auto 0.060 (H) 0.000 - [facility] TAMARA 0.000 [facility] x10(3)/[facility] LABORATORY Specimen Anatomical Collection Method Collection Time Receive d Time (Source) Location / / Volume Laterality Blood specimen 01/09/2019 2:34 AM 019 2:39 (specimen) EDT AM EDT Resulting Agency Comment Spec In Lab Whitney Kaplan APRN HEMATOLOGY ORDERABLES Performing Organization Address City/State/ZIP Code [place] [address] Heparin (unfractionated) Level (01/09/2019 2:34 AM EDT) P athologist Signature Heparin UFH 0.17 IU/mL [facility] LABORATORY Comment: Guidelines for therapeutic unfractionate d heparin levels are summarized below. Heparin (Anti-Xa) levels should be deter mined in a plasma sample that has been drawn 6 hours after a dose change i.e., steady-state has been reached. DRUG ?Dos ing Schedule ? Target Peak Steady-State ?Heparin (Anti-Xa) Levels (Units/mL) Unfractionated ?Continuous inf usion ?0.3-0.7 Heparin ?0.3-0.6 fo r some neurology indications Specimen Anatomical Collection Method Collection Time Receive d Time (Source) Location / / Volume Laterality Blood specimen 01/09/2019 2:34 AM 019 2:39 (specimen) EDT AM EDT Resulting Agency Comment Spec In Lab Konrad Melissa MD HEMATOLOGY ORDERABLES Performing Organization Address City/[facility]/ZIP Code Phon e Number [address] Magnesium (01/09/2019 2:34 AM EDT) athologist Signature Magnesium 0.81 0.69 - 1.07 [facility] mmol/L [facility] LABORATORY Specimen Anatomical Collection Method Collection Time Receive d Time (Source) Location / / Volume Laterality Blood specimen 01/09/2019 2:34 AM 019 2:39 (specimen) EDT AM EDT Resulting Agency Comment Spec In Lab Konrad Melissa MD CHEMISTRY ORDERABLES Performing Organization Address City/[facility]/[place] [address] (ABNORMAL) BMP w/fasting Glucose (01/09/2019 2:34 AM EDT) athologist Signature Glucose 124 (H) 65 - 99 [facility] Fasting mg/dL [facility] LABORATORY Comment: ?Fasting* Glucose Interpretive C riteria Normal ?65-99 mg/dL Impaired Fasting glucose ?100-125 mg/dL Consistent with Diabetes Mellitus ? >or= 126 mg/dL *Fasting is defined as no caloric intake for at least 8 hours In the absence of unequivocal hypergly cemia a plasma glucose value of >or= 126 mg/dL should be repeated on a subseq uent day. Diagnosis and Classification of Diabetes Mellitus, Position Statement from the [employer] [employer]. ??Diabete s Care, Volume 33, Supplement 1, Apr 2009 BUN 66 (H) 8 - 18 mg/dL [facility] LABORATORY Creatinine 3.28 (H) 0.70 - 1.20 mg/dL [facility] LABORATORY Sodium 130 (L) 135 - 145 mmol/L [facility] LABORATORY Potassium 3.3 (L) 3.5 - 5.0 mmol/L [facility] LABORATORY Comment: Please note: ??Patients with WBC >100,00 0 may have falsely elevated Potassium levels. ??For accurate Potassium quantif ication in these patients send serum separator tube (gold top) for subsequent determinations. ??Contact the Clinical Chemistry Laboratory if there are any qu estions. Chloride 87 (L) 98 - 107 mmol/L [facility] LABORATORY CO2 24 22 - 31 mmol/L [facility] LABORATORY Anion Gap 19 (H) 5 - 15 mmol/L [facility] LABORATORY Calcium 8.9 8.5 - 10.5 mg/dL [facility] LABORATORY Estimated GFR 14 (L) >=60 mL/min/1.73 m?? [facility] LABORATORY Comment: The eGFR was calculated using the CKD-EP I equation. As with all creatinine based estimates of kidney function, eGFR values calculated with the CKD-EPI equation are not accurate in patients wi th acute kidney failure, extremes of body mass or the acutely ill. [email or web address] eGFR 16 (L) >=60 mL/min/1.73 m?? [facility] LABORATORY Comment: The eGFR was calculated using the CKD-EP I equation. As with all creatinine based estimates of kidney function, eGFR values calculated with the CKD-EPI equation are not accurate in patients wi th acute kidney failure, extremes of body mass or the acutely ill. [email or web address] Specimen Anatomical Collection Method Collection Time Receive d Time (Source) Location / / Volume Laterality Blood specimen 01/09/2019 2:34 AM 019 2:39 (specimen) EDT AM EDT Resulting Agency Comment Spec In Lab Whitney Kaplan APRN CHEMISTRY ORDERABLES Performing Organization Address City/State/ZIP Code [place] [address] Heparin (unfractionated) Level (01/08/2019 7:01 PM EDT) athologist Signature Heparin UFH 0.17 IU/mL [facility] LABORATORY Comment: Guidelines for therapeutic unfractionate d heparin levels are summarized below. Heparin (Anti-Xa) levels should be deter mined in a plasma sample that has been drawn 6 hours after a dose change i.e., steady-state has been reached. DRUG ?Dos ing Schedule ? Target Peak Steady-State ?Heparin (Anti-Xa) Levels (Units/mL) Unfractionated ?Continuous inf usion ?0.3-0.7 Heparin ?0.3-0.6 fo r some neurology indications Specimen Anatomical Collection Method Collection Time Receive d Time (Source) Location / / Volume Laterality Blood specimen 01/08/2019 7:01 PM 019 7:06 (specimen) EDT PM EDT Resulting Agency Comment Spec In Lab Konrad Melissa MD HEMATOLOGY ORDERABLES Performing Organization Address City/[facility]/ZIP Code Phon e Number [address] Magnesium (01/08/2019 12:51 PM EDT) P athologist Signature Magnesium 0.86 0.69 - 1.07 [facility] mmol/L [facility] LABORATORY Specimen Anatomical Collection Method Collection Time Receive d Time (Source) Location / / Volume Laterality Blood specimen Venous Draw / 01/08/2019 12:51 01/09/20 19 2:25 (specimen) Unknown PM EDT PM EDT Resulting Agency Comment Spec In Lab Whitney Scott Rosaura RAE CHEMISTRY ORDERABLES Performing Organization Address City/[facility]/ZIP Code Phon e Number [address] (ABNORMAL) TSH (01/08/2019 12:51 PM EDT) P athologist Signature TSH 8.18 (H) 0.27 - 4.20 [facility] mcIU/mL [facility] LABORATORY Specimen Anatomical Collection Method Collection Time Receive d Time (Source) Location / / Volume Laterality Blood specimen Venous Draw / 01/08/2019 12:51 01/09/20 19 2:25 (specimen) Unknown PM EDT PM EDT Resulting Agency Comment Spec In Lab Whitney Scott Rosaura NELSONN CHEMISTRY ORDERABLES Performing Organization Address City/[facility]/ZIP [facility] [place] [address] (ABNORMAL) Electrolytes panel (01/08/2019 12:51 PM EDT) P athologist Signature Sodium 130 (L) 135 - 145 [facility] mmol/L [facility] LABORATORY Potassium 4.0 3.5 - 5.0 [facility] mmol/L [facility] LABORATORY Comment: Please note: ??Patients with WBC >100,00 0 may have falsely elevated Potassium levels. ??For accurate Potassium quantif ication in these patients send serum separator tube (gold top) for subsequent determinations. ??Contact the Clinical Chemistry Laboratory if there are any qu estions. Chloride 90 (L) 98 - 107 mmol/L [facility] LABORATORY CO2 18 (L) 22 - 31 mmol/L [facility] LABORATORY Anion Gap 22 (H) 5 - 15 mmol/L [facility] LABORATORY Specimen Anatomical Collection Method Collection Time Receive d Time (Source) Location / / Volume Laterality Blood specimen 01/08/2019 12:51 9 2:25 (specimen) PM EDT PM EDT Resulting Agency Comment Spec In Lab Whitney Kaplan APRN CHEMISTRY ORDERABLES Performing Organization Address City/State/ZIP Code [place] [address] (ABNORMAL) Troponin (01/08/2019 12:51 PM EDT) P athologist Signature Troponin-T 0.05 (H) 0.00 - [facility] 0.00 ng/mL [facility] LABORATORY Comment: The 99th percentile for Troponin T is le ss than 0.01 ng/mL, any detectable cTnT concentration using this assay should be considered elevated. According to the third universal definit ion of myocardial infarction the following criteria with a clinical prese ntation consistent with acute myocardial ischemia meets the diagnosis for a myocardial infarction ([place]). Detection of a rise and/or fall of cTnT, with at least one value greater than the 99th percentile (> or = 0.01) and wi th at least one of the following ?? Symptoms of ischemia ?? New or presumed new significant ST-se gment-T wave (ST-T) changes or new left bundle branch block (LBBB) ?? Development of pathologic Q waves in the ECG ?? Imaging evidence of new loss of viabl e myocardium or new regional wall motion abnormality ?? Identification of an intracoronary th rombus by angiography or autopsy Samples for cTnT testing should be obtai dee serially upon first assessment and again 3 to 6 hours later. If the clinica l suspicion is high and previous samples have been negative an additional sample may be indicated. Reference: Third Coy Definition of Myocardial Infarction. Journal of the [employer] [employer] 2012;60:1581-98 Specimen Anatomical Collection Method Collection Time Receive d Time (Source) Location / / Volume Laterality Blood specimen 01/08/2019 12:51 9 1:00 (specimen) PM EDT PM EDT Resulting Agency Comment Spec In Lab Whitney Kaplan APRN CHEMISTRY ORDERABLES Performing Organization Address [facility]/[place] [address] CK (01/08/2019 12:51 PM EDT) P athologist Signature CK, Total 160 0 - 160 [facility] unit/[facility] LABORATORY Specimen Anatomical Collection Method Collection Time Receive d Time (Source) Location / / Volume Laterality Blood specimen 01/08/2019 12:51 9 1:00 (specimen) PM EDT PM EDT Resulting Agency Comment Spec In Lab Whitney Kaplan APRN CHEMISTRY ORDERABLES Performing Organization Address City/[facility]/[place] [address] Heparin (unfractionated) Level (01/08/2019 12:51 PM EDT) P athologist Signature Heparin UFH 0.12 IU/mL [facility] LABORATORY Comment: Guidelines for therapeutic unfractionate d heparin levels are summarized below. Heparin (Anti-Xa) levels should be deter mined in a plasma sample that has been drawn 6 hours after a dose change i.e., steady-state has been reached. DRUG ?Dos ing Schedule ? Target Peak Steady-State ?Heparin (Anti-Xa) Levels (Units/mL) Unfractionated ?Continuous inf usion ?0.3-0.7 Heparin ?0.3-0.6 fo r some neurology indications Specimen Anatomical Collection Method Collection Time Receive d Time (Source) Location / / Volume Laterality Blood specimen 01/08/2019 12:51 9 1:00 (specimen) PM EDT PM EDT Resulting Agency Comment Spec In Lab Konrad Melissa MD HEMATOLOGY ORDERABLES Performing Organization Address City/State/ZIP [place] [address] (ABNORMAL) Differential, Automated (01/08/2019 10:02 AM EDT) [facility] Method Time Signature Neutrophils % 76.1 % [facility] LABORATORY Neutr Abs (ANC) 7.62 (H) 1.70 - [facility] 6.10 [facility] x10(3)/[facility] LABORATORY Lymphocytes % 10.4 % [facility] LABORATORY Lymphocytes Abs 1.0 0.9 - 3.2 [facility] x10(3)/[facility] LABORATORY Monocytes % 8.2 % [facility] LABORATORY Monocyte Abs 0.8 0.3 - 0.9 [facility] x10(3)/[facility] LABORATORY Eosinophils % 3.1 % [facility] LABORATORY Eosinophils Abs 0.3 0.0 - 0.4 [facility] x10(3)/[facility] LABORATORY Basophils % 1.1 % [facility] LABORATORY Basophils Abs 0.1 0.0 - 0.1 [facility] x10(3)/[facility] LABORATORY Immature Gran % 1.10 % [facility] LABORATORY Comment: Immature granulocytes(IG's)percentage an d absolute count will include metamyelocytes, myelocytes, and promyelo cytes. Blood smears from CBCs yielding IG's will be scanned manually for concor dance. If this scan disagrees with the automated IG or if promyelocytes are not ed, a manual differential will be performed. Blanca Gran Abs 0.11 (H) 0.00 - 0.04 x10(3)/[facility] LABORATORY Specimen Anatomical Collection Method Collection Time Receive d Time (Source) Location / / Volume Laterality Blood specimen 01/08/2019 10:02 9 (specimen) AM EDT 10:28 AM EDT Resulting Agency Comment Spec In Lab Greyson Jolly MD HEMATOLOGY ORDERABLES Performing Organization Address City/State/ZIP [place] [address] (ABNORMAL) Hemogram (01/08/2019 10:02 AM EDT) [facility] gist Method Time Signature WBC 10.0 (H) 4.0 - 9.5 [facility] x10(3)/[facility] LABORATORY RBC 3.76 (L) 4.00 - [facility] 5.21 [facility] x10(6)/[facility] LABORATORY Hemoglobin 11.6 (L) 11.7 - [facility] 15.5 gm/dL [facility] LABORATORY Hematocrit 34.9 (L) 35.7 - [facility] 45.8 % [facility] LABORATORY MCV 92.8 82.6 - [facility] 94.4 [facility] LABORATORY MCH 30.9 27.1 - [facility] 32.0 pg [facility] LABORATORY MCHC 33.2 31.7 - [facility] 35.0 gm/dL [facility] LABORATORY Platelets 271 145 - 357 [facility] x10(3)/[facility] LABORATORY RDWSD 50.9 (H) 37.0 - [facility] 46.0 [facility] LABORATORY RDWCV 15.6 (H) 11.5 - [facility] TAMARA 14.1 % [facility] LABORATORY MPV 11.3 7.6 - 12.9 [facility] LABORATORY nRBC % Auto 0.6 % [facility] LABORATORY nRBC Abs Auto 0.060 (H) 0.000 - [facility] TAMARA 0.000 [facility] x10(3)/[facility] LABORATORY Specimen Anatomical Collection Method Collection Time Receive d Time (Source) Location / / Volume Laterality Blood specimen 01/08/2019 10:02 9 (specimen) AM EDT 10:28 AM EDT Resulting Agency Comment Spec In Lab Greyson Jolly MD HEMATOLOGY ORDERABLES Performing Organization Address City/State/ZIP Code [place] [address] (ABNORMAL) Troponin (01/08/2019 10:02 AM EDT) P athologist Signature Troponin-T 0.05 (H) 0.00 - [facility] 0.00 ng/mL [facility] LABORATORY Comment: The 99th percentile for Troponin T is le ss than 0.01 ng/mL, any detectable cTnT concentration using this assay should be considered elevated. According to the third universal definit ion of myocardial infarction the following criteria with a clinical prese ntation consistent with acute myocardial ischemia meets the diagnosis for a myocardial infarction ([place]). Detection of a rise and/or fall of cTnT, with at least one value greater than the 99th percentile (> or = 0.01) and wi th at least one of the following ?? Symptoms of ischemia ?? New or presumed new significant ST-se gment-T wave (ST-T) changes or new left bundle branch block (LBBB) ?? Development of pathologic Q waves in the ECG ?? Imaging evidence of new loss of viabl e myocardium or new regional wall motion abnormality ?? Identification of an intracoronary th rombus by angiography or autopsy Samples for cTnT testing should be obtai dee serially upon first assessment and again 3 to 6 hours later. If the clinica l suspicion is high and previous samples have been negative an additional sample may be indicated. Reference: Third Coy Definition of Myocardial Infarction. Journal of the [employer] 2012;60:1581-98 Specimen Anatomical Collection Method Collection Time Receive d Time (Source) Location / / Volume Laterality Blood specimen 01/08/2019 10:02 9 (specimen) AM EDT 10:28 AM EDT Resulting Agency Comment Spec In Lab Konrad Melissa MD CHEMISTRY ORDERABLES Performing Organization Address City/State/ZIP Code Phon [place] [address] ECHOCARDIOGRAM COMPLETE W CONTRAST (01/08/2019 9:14 AM EDT) Anatomical Region Laterality Modality Other Specimen (Source) Anatomical Location Collection Method / Collectio n Time Received Time / Laterality Volume 01/08/2019 Narrative 01/08/2019 10:13 AM EDT Procedure: ?Transthoracic Echocardiogram Patient: ?TERELL Eckert ? (Age): 1950(68y) Med Rec#: ? [id number] ?Sex: ?F ? Site Loc: ? [facility] ?Ht / Wt: ??152.4(cm)/37.2( Pt. Loc: ?Adult Floor ? BSA: ?1.28 Study Date: ?? 01/08/2019 ?Pt. Type: Inpatient Tape: ? Referring: Konrad Melissa Reading: Greyson Jolly ([id number]) Truck And Transport Mechanic: Angel Aragon [facility] Diagnosis: *Chest pain, unspecified (R07.9) *Abdominal aortic aneurysm, without rup ture (I71.4) *Dyspnea, unspecified (R06.00) BP: ? 182/90 SUMMARY: 1. The left ventricular chamber size is normal. Mild concentric left ventricular hypertrophy is observed. The re is diffuse hypokinesis present. ??Global left ventricular systo lic function is severely reduced. Ejection fraction is estimated to be 20 -25%. Doppler assessment is consistent with elevated left sided fill ing pressure. 2. The right ventricle is normal in size . Right ventricular global systolic function is low normal. 3. The left atrium is severely dilated. The right atrium appears normal. 4. There is mild to moderate (1-2+/4+) m itral regurgitation present. There is mild to moderate (1-2+/4+) tric uspid regurgitation present. 5. The estimated pulmonary artery systol ic pressure is 47 mmHg. 6. See remainder of report for additiona l findings. Findings ? : Study Quality: ? Adequate Left Ventricle: ? The left ventricul ar chamber size is normal. ?Mild concentric left ventricular h ypertrophy is observed. ?There is no evidence of LVOT obstr uction. ?No ventricular septal defect is vi sualized. ?Global left ventricular systolic f unction is severely reduced. Ejection fraction is estimated to be 20% . ?There is diffuse hypokinesis prese nt. ?Left ventricular diastolic functio n is abnormal. ?The left ventricular diastolic nona ling pattern is consistent with impaired LV relaxation. ?Doppler assessment is consistent w ith elevated left sided filling pressure. ?The ??basal anteroseptal, basal an terior, basal anterolateral, basal inferolateral, basal inferior, basal inf eroseptal, mid anteroseptal, mid anterior, mid anterolateral, mid inferol ateral, mid inferior, mid inferoseptal, apical septal, apical ante rior, apical lateral, and apical inferior wall segments are hypoki netic (score 2). ?Overall wallmotion score index is ??2.00 Left Atrium: ? The left atrium is se verely dilated. ?No atrial septal defect is visuali zed. Right Ventricle: ? The right ventric le is normal in size. ?Right ventricular global systolic function is low normal. ?There are right ventricular segmen prakash wall motion abnormalities. ?There is evidence of pulmonary hyp ertension. ?The estimated pulmonary artery sys tolic pressure is 47 mmHg. ?The estimated right atrial pressur e is 15 mmHg. Right Atrium: ? The right atrium khoa ears normal. Aortic Valve: ? The aortic valve is tricuspid. ?There is no evidence of aortic sara ve thickening. ?Systolic excursion of the aortic v alve is normal. ?There is no evidence of aortic sara ve stenosis. ?There is a trace of aortic regurgi tation present. Mitral Valve: ? There is thickening of the anterior mitral valve leaflet. ?There is no evidence of mitral sara ve leaflet prolapse. ?There is no evidence of mitral cornelius nosis. ?There is mild to moderate (1-2+/4+ ) mitral regurgitation present. Tricuspid Valve: ? The tricuspid sara ve appears normal in structure and function. ?There is mild to moderate (1-2+/4+ ) tricuspid regurgitation present. Pulmonic Valve: ? The pulmonic valve appears normal in structure and function. ?There is trace pulmonic regurgitat ion present. Pericardium: ? The pericardium appea rs normal and there is no evidence of a pericardial effusion. Aorta: ? The aortic root is normal i n size. ?The ascending aorta is normal in s ize. ?There is no evidence of coarctatio n of the aorta. Pulmonary Artery: ? The main pulmona ry artery appears normal. Venous: ? The inferior vena cava khoa ears dilated. ?There is less than 50% respiratory change in the inferior vena cava dimension consistent with elevated right atrial pressure. Misc: ? See remainder of report for additional findings. ?Two-dimensional echo, spectral Dop pler and color Doppler performed. ?Three-dimensional echocardiogram p erformed. ?Optison contrast (one 3 ml vial) w as used to enhance endocardial definition. Excess contrast was discarde d. ?TYLER performed ?Myocardial Strain Imaging Chambers 2D ?Value ?Units (Range) ? IVSd (2D) ? 1.2 ?cm ? LVPWd (2D) ?1.4 ?cm ? IVS:LVPW ratio (2D) 0.8 ?ratio ? RWT (2D) ?0.6 ?ratio ? RWT PW (2D) ? 0.6 ?ratio ? LVIDd (2D) ?4.5 ?cm ? LVIDs (2D) ?3.6 ?cm ? LVIDd (2D) index ?3.5 ?cm/m2 ? LVIDs (2D) index ?2.8 ?cm/m2 ? LV FS (2D) ?20 ? % ? EF Teichholz (2D) ?? 41 ? % ? Ao root diameter (2D2.8 ?cm (2.1 - 3.6) ? Ascending Ao ?3 ?cm (2 - 3.5) ? Volumes/Mass ?Value ?Units (Range) ? LA Area 4 CH ?18.8 ? cm2 (<21) ? LA ESV BP (A/L) inde50.9 ? ml/m2 ? RA AREA 4CH ? 15.8 ? cm2 ? LV ESV SP 4CH (MOD) 70.5 ? ml ? LV ESV SP 2CH (MOD) 91.7 ? ml ? LV EDV BP ? 119.5 ?ml ? LV ESV BP ? 83.2 ? ml ? LV EDV BP index ? 93.4 ? ml/m2 ? LV ESV BP index ? 65 ? ml/m2 ? BP EF (MOD) ? 30 ? % ? LV mass (2D) ?220.4 ?g ? LV mass (2D) index ??172.2 ?g/m2 ? Diastolic/Systolic Function ?Value ?Units (Range) ? MV E-wave Vmax ?0.7 ?m/sec ? MV deceleration spla409.8 ? msec ? MV A-wave Vmax ?1 ?m/sec ? MV E:A ratio ?0.7 ?ratio ? LV septal e' Vmax ?? 0 ?m/sec ? LV lateral e' Vmax ??0 ?m/sec ? LV average e' Vmax ??0 ?m/sec ? LV E:e' septal ratio23 ? ratio ? LV E:e' lateral rati23 ? ratio ? LV average E:e' rati23 ? ratio ? Tricuspid Valve ?Value ?Units (Range) ? TR Vmax ? 2.8 ?m/sec ? TR peak gradient ?31.8 ? mmHg ? RAP ? 15 ? mmHg ? RVSP ?47 ? mmHg ? Wall Motion: Segment Name ?Rest ? Base-Anteroseptal ?? Hypokinetic ? Base-Anterior ? Hypokinetic ? Base-Anterolateral ??Hypokinetic ? Base-Posterolateral Hypokinetic ? Base-Inferior ? Hypokinetic ? Base-Inferoseptal ?? Hypokinetic ? Mid-Anteroseptal ?Hypokinetic ? Mid-Anterior ?Hypokinetic ? Mid-Anterolateral ?? Hypokinetic ? Mid-Posterolateral ??Hypokinetic ? Mid-Inferior ?Hypokinetic ? Mid-Inferoseptal ?Hypokinetic ? Vail-Septal ? Hypokinetic ? Vail-Anterior ? Hypokinetic ? Vail-Lateral ?Hypokinetic ? Vail-Inferior ? Hypokinetic ? Vail-Tip ?Hypokinetic ? This report has been electronically sign ed by: _ Greyson Jolly MD ? 01/08/2019 10 :13:11 Images reviewed and interpretation verif ied [facility] Cardiac Ultrasound Laboratory Procedure Note Greyson Jolly MD - 01/08/2019Formatt ing of this note might be different from the original. Procedure: Transthoracic Echocardiogram Patient: TERELL Eckert (Age): [birth year](68y) Med Rec#: [id number] Sex: F Site Loc: [facility] Ht / Wt: 152.4(cm)/37.2( Pt. Loc: Adult Floor BSA: 1.28 Study Date: 01/08/2019 Pt. Type: Inpatie nt Tape: Referring: Konrad Melissa Reading: Greyson Jolly ([id number]) Truck And Transport Mechanic: Angel Aragon [facility] Diagnosis: *Chest pain, unspecified (R07.9) *Abdominal aortic aneurysm, without rup ture (I71.4) *Dyspnea, unspecified (R06.00) BP: 182/90 SUMMARY: 1. The left ventricular chamber size is normal. Mild concentric left ventricular hypertrophy is observed. The re is diffuse hypokinesis present. Global left ventricular systoli c function is severely reduced. Ejection fraction is estimated to be 20 -25%. Doppler assessment is consistent with elevated left sided fill ing pressure. 2. The right ventricle is normal in size . Right ventricular global systolic function is low normal. 3. The left atrium is severely dilated. The right atrium appears normal. 4. There is mild to moderate (1-2+/4+) m itral regurgitation present. There is mild to moderate (1-2+/4+) tric uspid regurgitation present. 5. The estimated pulmonary artery systol ic pressure is 47 mmHg. 6. See remainder of report for additiona l findings. Findings : Study Quality: Adequate Left Ventricle: The left ventricular lawson mber size is normal. Mild concentric left ventricular hypert rophy is observed. There is no evidence of LVOT obstructio n. No ventricular septal defect is visuali zed. Global left ventricular systolic functi on is severely reduced. Ejection fraction is estimated to be 20% . There is diffuse hypokinesis present. Left ventricular diastolic function is abnormal. The left ventricular diastolic filling pattern is consistent with impaired LV relaxation. Doppler assessment is consistent with e levated left sided filling pressure. The basal anteroseptal, basal anterior, basal anterolateral, basal inferolateral, basal inferior, basal inf eroseptal, mid anteroseptal, mid anterior, mid anterolateral, mid inferol ateral, mid inferior, mid inferoseptal, apical septal, apical ante rior, apical lateral, and apical inferior wall segments are hypoki netic (score 2). Overall wallmotion score index is 2.00 Left Atrium: The left atrium is severely dilated. No atrial septal defect is visualized. Right Ventricle: The right ventricle is normal in size. Right ventricular global systolic funct ion is low normal. There are right ventricular segmental w all motion abnormalities. There is evidence of pulmonary hyperten aaron. The estimated pulmonary artery systolic pressure is 47 mmHg. The estimated right atrial pressure is 15 mmHg. Right Atrium: The right atrium appears n ormal. Aortic Valve: The aortic valve is tricus pid. There is no evidence of aortic valve th ickening. Systolic excursion of the aortic valve is normal. There is no evidence of aortic valve st enosis. There is a trace of aortic regurgitatio n present. Mitral Valve: There is thickening of the anterior mitral valve leaflet. There is no evidence of mitral valve le aflet prolapse. There is no evidence of mitral stenosis . There is mild to moderate (1-2+/4+) anibal ral regurgitation present. Tricuspid Valve: The tricuspid valve khoa ears normal in structure and function. There is mild to moderate (1-2+/4+) tri cuspid regurgitation present. Pulmonic Valve: The pulmonic valve appea rs normal in structure and function. There is trace pulmonic regurgitation p resent. Pericardium: The pericardium appears nor mal and there is no evidence of a pericardial effusion. Aorta: The aortic root is normal in size . The ascending aorta is normal in size. There is no evidence of coarctation of the aorta. Pulmonary Artery: The main pulmonary art mikie appears normal. Venous: The inferior vena cava appears d ilated. There is less than 50% respiratory diop ge in the inferior vena cava dimension consistent with elevated right atrial pressure. Misc: See remainder of report for additi onal findings. Two-dimensional echo, spectral Doppler and color Doppler performed. Three-dimensional echocardiogram perfor med. Optison contrast (one 3 ml vial) was us ed to enhance endocardial definition. Excess contrast was discarde d. TYLER performed Myocardial Strain Imaging Chambers 2D Value Units (Range) IVSd (2D) 1.2 cm LVPWd (2D) 1.4 cm IVS:LVPW ratio (2D) 0.8 ratio RWT (2D) 0.6 ratio RWT PW (2D) 0.6 ratio LVIDd (2D) 4.5 cm LVIDs (2D) 3.6 cm LVIDd (2D) index 3.5 cm/m2 LVIDs (2D) index 2.8 cm/m2 LV FS (2D) 20 % EF Teichholz (2D) 41 % Ao root diameter (2D2.8 cm (2.1 - 3.6) Ascending Ao 3 cm (2 - 3.5) Volumes/Mass Value Units (Range) LA Area 4 CH 18.8 cm2 (<21) LA ESV BP (A/L) inde50.9 ml/m2 RA AREA 4CH 15.8 cm2 LV ESV SP 4CH (MOD) 70.5 ml LV ESV SP 2CH (MOD) 91.7 ml LV EDV BP 119.5 ml LV ESV BP 83.2 ml LV EDV BP index 93.4 ml/m2 LV ESV BP index 65 ml/m2 BP EF (MOD) 30 % LV mass (2D) 220.4 g LV mass (2D) index 172.2 g/m2 Diastolic/Systolic Function Value Units (Range) MV E-wave Vmax 0.7 m/sec MV deceleration eajf825.8 msec MV A-wave Vmax 1 m/sec MV E:A ratio 0.7 ratio LV septal e' Vmax 0 m/sec LV lateral e' Vmax 0 m/sec LV average e' Vmax 0 m/sec LV E:e' septal ratio23 ratio LV E:e' lateral rati23 ratio LV average E:e' rati23 ratio Tricuspid Valve Value Units (Range) TR Vmax 2.8 m/sec TR peak gradient 31.8 mmHg RAP 15 mmHg RVSP 47 mmHg Wall Motion: Segment Name Rest Base-Anteroseptal Hypokinetic Base-Anterior Hypokinetic Base-Anterolateral Hypokinetic Base-Posterolateral Hypokinetic Base-Inferior Hypokinetic Base-Inferoseptal Hypokinetic Mid-Anteroseptal Hypokinetic Mid-Anterior Hypokinetic Mid-Anterolateral Hypokinetic Mid-Posterolateral Hypokinetic Mid-Inferior Hypokinetic Mid-Inferoseptal Hypokinetic Vail-Septal Hypokinetic Vail-Anterior Hypokinetic Vail-Lateral Hypokinetic Vail-Inferior Hypokinetic Vail-Tip Hypokinetic This report has been electronically sign ed by: _ Greyson Jolly MD 01/08/2019 10:13:11 Images reviewed and interpretation verif ied [facility] Cardiac Ultrasound Laboratory Konrad Melissa MD ECHO ORDERABLES Lipase (01/08/2019 3:35 AM EDT) athologist Signature Lipase 47 0 - 60 [facility] unit/L [facility] LABORATORY Specimen Anatomical Collection Method Collection Time Receive d Time (Source) Location / / Volume Laterality Blood specimen Venous Draw / 01/08/2019 3:35 AM 2018 4:26 (specimen) Unknown EDT AM EDT Resulting Agency Comment Spec In Lab Konrad Melissa MD CHEMISTRY ORDERABLES Performing Organization Address City/State/[place] [address] (ABNORMAL) Troponin (01/08/2019 3:35 AM EDT) P athologist Signature Troponin-T 0.05 (H) 0.00 - [facility] 0.00 ng/mL [facility] LABORATORY Comment: Called by: victor manuel, Read back by: Louisa skinner, Date/Time:01/08/19 04:18. The 99th percentile for Troponin T is le ss than 0.01 ng/mL, any detectable cTnT concentration using this assay should be considered elevated. According to the third universal definit ion of myocardial infarction the following criteria with a clinical prese ntation consistent with acute myocardial ischemia meets the diagnosis for a myocardial infarction ([place]). Detection of a rise and/or fall of cTnT, with at least one value greater than the 99th percentile (> or = 0.01) and wi th at least one of the following ?? Symptoms of ischemia ?? New or presumed new significant ST-se gment-T wave (ST-T) changes or new left bundle branch block (LBBB) ?? Development of pathologic Q waves in the ECG ?? Imaging evidence of new loss of viabl e myocardium or new regional wall motion abnormality ?? Identification of an intracoronary th rombus by angiography or autopsy Samples for cTnT testing should be obtai dee serially upon first assessment and again 3 to 6 hours later. If the clinica l suspicion is high and previous samples have been negative an additional sample may be indicated. Reference: Third Coy Definition of Myocardial Infarction. Journal of the [employer] 2012;60:1581-98 Specimen Anatomical Collection Method Collection Time Receive d Time (Source) Location / / Volume Laterality Blood specimen 01/08/2019 3:35 AM 019 3:45 (specimen) EDT AM EDT Resulting Agency Comment Spec In Lab Natalia Grover MD CHEMISTRY ORDERABLES Performing Organization Address City/State/[place] [address] (ABNORMAL) pro-Brain Natriuretic Peptide (01/08/2019 12:04 AM EDT) athologist Signature ProBNP >47503 (H) <=125 [facility] LABORATORY Specimen Anatomical Collection Method Collection Time Receive d Time (Source) Location / / Volume Laterality Blood specimen Venous Draw / 01/08/2019 12:04 01/09/20 19 (specimen) Unknown AM EDT 12:13 AM EDT Resulting Agency Comment Spec In Lab Rolo Solis MD CHEMISTRY ORDERABLES Performing Organization Address City/State/[place] [address] (ABNORMAL) CK (01/08/2019 12:04 AM EDT) athologist Signature CK, Total 231 (H) 0 - 160 [facility] unit/L [facility] LABORATORY Specimen Anatomical Collection Method Collection Time Receive d Time (Source) Location / / Volume Laterality Blood specimen Venous Draw / 01/08/2019 12:04 01/09/20 19 (specimen) Unknown AM EDT 12:13 AM EDT Resulting Agency Comment Spec In Lab Bronson Rodriguez MD CHEMISTRY ORDERABLES Performing Organization Address City/State/[place] [address] Lavender Tube HOLD (01/08/2019 12:04 AM EDT) Patholo gist Method Time Signature Lavender Hold Sample in [facility] LABORATORY Specimen Anatomical Collection Method Collection Time Receive d Time (Source) Location / / Volume Laterality Blood specimen Venous Draw / 01/08/2019 12:04 01/09/20 19 (specimen) Unknown AM EDT 12:14 AM EDT Rolo Solis MD HEMATOLOGY ORDERABLES Performing Organization Address City/[facility]/[place] [address] Gold Tube HOLD (01/08/2019 12:04 AM EDT) P athologist Signature Gold Hold Sample in [facility] LABORATORY Specimen Anatomical Collection Method Collection Time Receive d Time (Source) Location / / Volume Laterality Blood specimen Venous Draw / 01/08/2019 12:04 01/09/20 19 (specimen) Unknown AM EDT 12:13 AM EDT Rolo Solis MD CHEMISTRY ORDERABLES Performing Organization Address City/State/[place] [address] Blue Tube HOLD (01/08/2019 12:04 AM EDT) P athologist Signature Blue Hold Sample in [facility] LABORATORY Specimen Anatomical Collection Method Collection Time Receive d Time (Source) Location / / Volume Laterality Blood specimen Venous Draw / 01/08/2019 12:04 01/09/20 19 (specimen) Unknown AM EDT 12:14 AM EDT Rolo Solis MD HEMATOLOGY ORDERABLES Performing Organization Address City/State/[place] [address] (ABNORMAL) Troponin (01/08/2019 12:04 AM EDT) athologist Signature Troponin-T 0.05 (H) 0.00 - [facility] 0.00 ng/mL [facility] LABORATORY Comment: Called by: victor manuel, Read back by: Louisa skinner, Date/Time:01/08/19 01:11. The 99th percentile for Troponin T is le ss than 0.01 ng/mL, any detectable cTnT concentration using this assay should be considered elevated. According to the third universal definit ion of myocardial infarction the following criteria with a clinical prese ntation consistent with acute myocardial ischemia meets the diagnosis for a myocardial infarction ([place]). Detection of a rise and/or fall of cTnT, with at least one value greater than the 99th percentile (> or = 0.01) and wi th at least one of the following ?? Symptoms of ischemia ?? New or presumed new significant ST-se gment-T wave (ST-T) changes or new left bundle branch block (LBBB) ?? Development of pathologic Q waves in the ECG ?? Imaging evidence of new loss of viabl e myocardium or new regional wall motion abnormality ?? Identification of an intracoronary th rombus by angiography or autopsy Samples for cTnT testing should be obtai dee serially upon first assessment and again 3 to 6 hours later. If the clinica l suspicion is high and previous samples have been negative an additional sample may be indicated. Reference: Third Coy Definition of Myocardial Infarction. Journal of the [employer] 2012;60:1581-98 Specimen Anatomical Collection Method Collection Time Receive d Time (Source) Location / / Volume Laterality Blood specimen 01/08/2019 12:04 9 (specimen) AM EDT 12:13 AM EDT Resulting Agency Comment Spec In Lab Natalia Grover MD CHEMISTRY ORDERABLES Performing Organization Address City/State/ZIP Code Phon e Number [place] [phone] (ABNORMAL) Basic Metabolic Panel (non-fasting) (01/08/2019 12:04 AM EDT) athologist Signature Glucose Lvl 121 65 - 199 ZAKIA ZHANG mg/dL [facility] Comment: Diabetes: >=200 mg/dL plus symp toms BUN 59 (H) 8 - 18 mg/dL [facility] Creatinine 3.42 (H) 0.70 - 1.20 mg/dL [facility] Sodium 131 (L) 135 - 145 mmol/L [facility] Potassium 4.2 3.5 - 5.0 mmol/L [facility] Comment: Please note: ??Patients with WBC >100,00 0 may have falsely elevated Potassium levels. ??For accurate Potassium quantif ication in these patients send serum separator tube (gold top) for subsequent determinations. ??Contact the Clinical Chemistry Laboratory if there are any qu estions. Chloride 93 (L) 98 - 107 mmol/L [facility] CO2 20 (L) 22 - 31 mmol/L [facility] Anion Gap 18 (H) 5 - 15 mmol/L [facility] Calcium 9.5 8.5 - 10.5 mg/dL [facility] Estimated GFR 13 (L) >=60 mL/min/1.73 m?? [facility] Comment: The eGFR was calculated using the CKD-EP I equation. As with all creatinine based estimates of kidney function, eGFR values calculated with the CKD-EPI equation are not accurate in patients wi th acute kidney failure, extremes of body mass or the acutely ill. [email or web address] eGFR 15 (L) >=60 mL/min/1.73 m?? [facility] Comment: The eGFR was calculated using the CKD-EP I equation. As with all creatinine based estimates of kidney function, eGFR values calculated with the CKD-EPI equation are not accurate in patients wi th acute kidney failure, extremes of body mass or the acutely ill. [email or web address] Specimen Anatomical Collection Method Collection Time Receive d Time (Source) Location / / Volume Laterality Blood specimen 01/08/2019 12:04 9 (specimen) AM EDT 12:13 AM EDT Resulting Agency Comment Spec In Lab Natalia Grover MD CHEMISTRY ORDERABLES Performing Organization Address City/[facility]/ZIP Code Phon e Number [place] [phone] EKG 12 Lead (01/07/2019 10:51 PM EDT) Component Value Ref Range Test Analysis Performed Pathologis t Method Time At Signature Ventricular rate 78 BPM MUSE SYSTEM Atrial Rate 78 BPM MUSE SYSTEM P-R Interval 160 ms MUSE SYSTEM QRS Duration 98 ms MUSE SYSTEM Q-T Interval 434 ms MUSE SYSTEM QTC Calculated 494 ms MUSE SYSTEM (Bezet) Calculated P Cecil 62 degrees MUSE SYSTEM Calculated R Cecil 29 degrees MUSE SYSTEM Calculated T Cecil -58 degrees MUSE SYSTEM INTERPRETATION Normal sinus rhythm MUSE SYSTEM Left atrial enlargement Left ventricular hypertrophy with repolarization abnormality Nonspecific ST and T wave abnormality Prolonged QT Abnormal ECG When compared with ECG of 07-JAN-2019 21:27, (unconfirmed) No significant change was found Confirmed by MD Kody, [facility] [place] ([id number]) on 01/08/2019 11:5 7:59 AM Specimen Anatomical Collection Method Collection Time Receive d Time (Source) Location / / Volume Laterality 01/07/2019 10:51 01/08/2019 PM EDT 11:57 AM EDT Shahbaz Wood MD ECG ORDERABLES Performing Organization Address City/[facility]/ZIP Code Phon e Number MUSE SYSTEM Lipase (01/07/2019 9:59 PM EDT) athologist Signature Lipase 27 0 - 60 [facility] unit/L [facility] Specimen Anatomical Collection Method Collection Time Receive d Time (Source) Location / / Volume Laterality Blood specimen Venous Draw / 01/07/2019 9:59 PM 2018 (specimen) Unknown EDT 10:04 PM EDT Resulting Agency Comment Spec In Lab Rolo Solis MD CHEMISTRY ORDERABLES Performing Organization Address City/[facility]/ZIP Code Phon e Number [place] [phone] (ABNORMAL) Hepatic Function Panel (01/07/2019 9:59 PM EDT) Analysis Performed At Patho logist Time Signature Total Protein 7.4 6.1 - 8.0 [facility] gm/dL [facility] Albumin 4.1 3.2 - 5.2 [facility] gm/dL [facility] AST Not Perf 0 - 30 [facility] Comment: Called by: ssd, Read back by: Smita bach, Date/Time:01/08/19 00:34. Called by: victor manuel, Read back by: Smita bach, Date/Time:01/08/19 00:34. ALT 33 (H) 0 - 30 unit/L [facility] Alk Phos 118 (H) 35 - 105 unit/L [facility] Total Bilirubin 0.7 0.2 - 1.3 mg/dL [facility] Bili, Direct Not Perf 0.0 - 0.3 [facility] Comment: Called by: victor manuel, Read back by: Glory Payne, Date/Time:01/08/19 00:34. Specimen Anatomical Collection Method Collection Time Receive d Time (Source) Location / / Volume Laterality Blood specimen Venous Draw / 01/07/2019 9:59 PM 2018 (specimen) Unknown EDT 10:04 PM EDT Resulting Agency Comment Spec In Lab Rolo Solis MD CHEMISTRY ORDERABLES Performing Organization Address City/[facility]/ZIP Code Phon e Number [address] Blue Tube HOLD (01/07/2019 9:59 PM EDT) P athologist Signature Blue Hold Sample in [facility]. [facility] Specimen Anatomical Collection Method Collection Time Receive d Time (Source) Location / / Volume Laterality Blood specimen Venous Draw / 01/07/2019 9:59 PM 2018 (specimen) Unknown EDT 10:05 PM EDT Rolo Solis MD HEMATOLOGY ORDERABLES Performing Organization Address City/[facility]/[place] [address] (ABNORMAL) Differential, Automated (01/07/2019 9:59 PM EDT) Patholo gist Method Time Signature Neutrophils % 78.0 % [facility] Neutr Abs (ANC) 7.23 (H) 1.70 - [facility] 6.10 [facility] x10(3)/[facility] L LABORATORY Lymphocytes % 11.1 % [facility] Lymphocytes Abs 1.0 0.9 - 3.2 [facility] x10(3)/[facility] LABORATORY Monocytes % 7.1 % [facility] Monocyte Abs 0.7 0.3 - 0.9 [facility] x10(3)/[facility] LABORATORY Eosinophils % 1.9 % [facility] Eosinophils Abs 0.2 0.0 - 0.4 [facility] x10(3)/[facility] LABORATORY Basophils % 0.9 % [facility] Basophils Abs 0.1 0.0 - 0.1 [facility] x10(3)/[facility] LABORATORY Immature Gran % 1.00 % [facility] Comment: Immature granulocytes(IG's)percentage an d absolute count will include metamyelocytes, myelocytes, and promyelo cytes. Blood smears from CBCs yielding IG's will be scanned manually for concor dance. If this scan disagrees with the automated IG or if promyelocytes are not ed, a manual differential will be performed. Blanca Gran Abs 0.09 (H) 0.00 - 0.04 x10(3)/[facility] LABORATORY Specimen Anatomical Collection Method Collection Time Receive d Time (Source) Location / / Volume Laterality Blood specimen 01/07/2019 9:59 PM 019 (specimen) EDT 10:04 PM EDT Resulting Agency Comment Spec In Lab Bronson Rodriguez MD HEMATOLOGY ORDERABLES Performing Organization Address City/State/ZIP Code [place] [address] (ABNORMAL) Hemogram (01/07/2019 9:59 PM EDT) Analysis Performed At Patho logist Time Signature WBC 9.3 4.0 - 9.5 [facility] x10(3)/[facility] LABORATORY RBC 4.12 4.00 - [facility] 5.21 [facility] x10(6)/[facility] LABORATORY Hemoglobin 12.6 11.7 - [facility] 15.5 gm/dL [facility] LABORATORY Hematocrit 37.0 35.7 - ZAKIA ZHANG 45.8 % [facility] LABORATORY MCV 89.8 82.6 - [place]AK[place] ZHANG 94.4 [facility] LABORATORY MCH 30.6 27.1 - [place]IA DELGAD[place]OCK 32.0 pg [facility] LABORATORY MCHC 34.1 31.7 - ZAKIA BLUNTCK 35.0 gm/dL [facility] LABORATORY Platelets 267 145 - 357 [place] x10(3)/[facility] LABORATORY RDWSD 48.9 (H) 37.0 - ZAKIA BLUNTCK 46.0 [facility] LABORATORY RDWCV 15.2 (H) 11.5 - ZAKIA BLUNTCK 14.1 % [facility] LABORATORY MPV 11.4 7.6 - 12.9 [facility] LABORATORY nRBC % Auto 0.0 % [facility] LABORATORY nRBC Abs Auto 0.000 0.000 - ZAKIA ZHANG 0.000 [facility] x10(3)/[facility] LABORATORY Specimen Anatomical Collection Method Collection Time Receive d Time (Source) Location / / Volume Laterality Blood specimen 01/07/2019 9:59 PM 019 (specimen) EDT 10:04 PM EDT Resulting Agency Comment Spec In Lab Bronson Rodriguez MD HEMATOLOGY ORDERABLES Performing Organization Address City/State/ZIP Code [place] [address] Troponin (01/07/2019 9:59 PM EDT) P athologist Signature Troponin-T Not Perf 0.00 - ZAKIA TAMARA 0.00 [facility] Comment: Unable to quantitate due to sample hemol ysis. ??Sample redraw suggested.called ed @01/07/19 23:31 The 99th percentile for Troponin T is le ss than 0.01 ng/mL, any detectable cTnT concentration using this assay should be considered elevated. According to the third universal definit ion of myocardial infarction the following criteria with a clinical prese ntation consistent with acute myocardial ischemia meets the diagnosis for a myocardial infarction ([place]). Detection of a rise and/or fall of cTnT, with at least one value greater than the 99th percentile (> or = 0.01) and wi th at least one of the following ?? Symptoms of ischemia ?? New or presumed new significant ST-se gment-T wave (ST-T) changes or new left bundle branch block (LBBB) ?? Development of pathologic Q waves in the ECG ?? Imaging evidence of new loss of viabl e myocardium or new regional wall motion abnormality ?? Identification of an intracoronary th rombus by angiography or autopsy Samples for cTnT testing should be obtai dee serially upon first assessment and again 3 to 6 hours later. If the clinica l suspicion is high and previous samples have been negative an additional sample may be indicated. Reference: Third Coy Definition of Myocardial Infarction. Journal of the [employer] 2012;60:1581-98 Specimen Anatomical Collection Method Collection Time Receive d Time (Source) Location / / Volume Laterality Blood specimen 01/07/2019 9:59 PM 019 (specimen) EDT 10:04 PM EDT Resulting Agency Comment Spec In Lab Natalia Grover MD CHEMISTRY ORDERABLES Performing Organization Address City/State/ZIP Code [place] [address] (ABNORMAL) Basic Metabolic Panel (non-fasting) (01/07/2019 9:59 PM EDT) athologist Signature Glucose Lvl 121 65 - 199 [facility] mg/dL [facility] Comment: Diabetes: >=200 mg/dL plus symp toms BUN 61 (H) 8 - 18 mg/dL [facility] Creatinine 3.68 (H) 0.70 - 1.20 mg/dL [facility] Sodium 131 (L) 135 - 145 mmol/L [facility] Potassium Not Perf 3.5 - 5.0 [facility] Comment: Unable to quantitate due to sample hemol ysis. ??Sample redraw suggested.called ed @01/07/19 23:31 Please note: ??Patients with WBC >100,00 0 may have falsely elevated Potassium levels. ??For accurate Potassium quantif ication in these patients send serum separator tube (gold top) for subsequent determinations. ??Contact the Clinical Chemistry Laboratory if there are any qu estions. Chloride 92 (L) 98 - 107 mmol/L [facility] CO2 18 (L) 22 - 31 mmol/L [facility] Anion Gap 21 (H) 5 - 15 mmol/L [facility] Calcium 9.4 8.5 - 10.5 mg/dL [facility] Estimated GFR 12 (L) >=60 mL/min/1.73 m?? [facility] Comment: The eGFR was calculated using the CKD-EP I equation. As with all creatinine based estimates of kidney function, eGFR values calculated with the CKD-EPI equation are not accurate in patients wi th acute kidney failure, extremes of body mass or the acutely ill. [email or web address] eGFR 14 (L) >=60 mL/min/1.73 m?? [facility] Comment: The eGFR was calculated using the CKD-EP I equation. As with all creatinine based estimates of kidney function, eGFR values calculated with the CKD-EPI equation are not accurate in patients wi th acute kidney failure, extremes of body mass or the acutely ill. [email or web address] Specimen Anatomical Collection Method Collection Time Receive d Time (Source) Location / / Volume Laterality Blood specimen 01/07/2019 9:59 PM 019 (specimen) EDT 10:04 PM EDT Resulting Agency Comment Spec In Lab Natalia Grover MD CHEMISTRY ORDERABLES Performing Organization Address City/State/ZIP Code [place] [address] EKG 12 Lead (01/07/2019 9:27 PM EDT) Component Value Ref Range Test Analysis Performed Pathologis t Method Time At Signature Ventricular rate 77 BPM MUSE SYSTEM Atrial Rate 77 BPM MUSE SYSTEM P-R Interval 160 ms MUSE SYSTEM QRS Duration 102 ms MUSE SYSTEM Q-T Interval 446 ms MUSE SYSTEM QTC Calculated 504 ms MUSE SYSTEM (Bezet) Calculated P Cecil 59 degrees MUSE SYSTEM Calculated R Cecil 29 degrees MUSE SYSTEM Calculated T Cecil -146 degrees MUSE SYSTEM INTERPRETATION Normal sinus rhythm MUSE SYSTEM Left atrial enlargement Left ventricular hypertrophy with repolarization abnormality Nonspecific ST abnormality Prolonged QT Abnormal ECG When compared with ECG of 02-OCT-2018 22:54, non-diagnostic ??ST elevation now present in Anterior leads Confirmed by MD Gates Stanislav ([id number]) on 01/08/2019 11:5 7:12 AM Specimen Anatomical Collection Method Collection Time Receive d Time (Source) Location / / Volume Laterality 01/07/2019 9:27 PM 9 EDT 11:57 AM EDT Natalia Grover MD ECG ORDERABLES Performing Organization Address City/State/ZIP Code Phon e Number MUSE SYSTEM documented in this encounter Visit Diagnoses Diagnosis Systolic HF (heart failure) - Primary Unspecified systolic heart failure Chest pain, unspecified type Abdominal aortic aneurysm (AAA) without rupture Dyspnea, unspecified type Renal artery stenosis Atherosclerosis of renal artery Acute on chronic systolic heart failure CKD (chronic kidney disease) stage 5, GF R less than 15 ml/min Chronic kidney disease, Stage V Hypertensive urgency Unspecified essential hypertension Severe protein-calorie malnutrition Other severe protein-calorie malnutritio n documented in this encounter Admitting Diagnoses Diagnosis Chest pain Chest pain, unspecified documented in this encounter Administered Medications Inactive Administered Medications - up to 3 most recent administrations Medication Order MAR Action Action Date Dose Rate Site acetaminophen (TYLENOL) tablet 500 Given 01/11/2019 8:31 PM EDT 500 mg mg 500 mg, Oral, EVERY 6 HOURS PRN, Starting on 01/08/19 at 0900, Until Cinthia 01/20/19 at 1658, Pain, Maximum dose of acetaminophen is 4000 mg from all sources in 24 hours., Routine Given 01/11/2019 4:26 AM EDT 500 mg alum-mag hydroxide-simeth (Maalox) (40 mg-40 Given 9:30 PM EDT 10 mLs mg-4 mg/mL) oral liquid 10 mL 10 mL, Oral, 3 TIMES DAILY PRN, Starting on 01/11/19 at 2117, Until Cinthia 01/20/19 at 1658, Heartburn, Routine amLODIPine (NORVASC) tablet 10 mg Given 01/20/2019 9:17 AM EDT 10 mg 10 mg, Oral, DAILY, First dose (after last modification) on 01/09/19 at 0900, Until Discontinued, Routine Given 01/19/2019 8:42 AM EDT 10 mg Given 01/18/2019 8:48 AM EDT 10 mg amLODIPine (NORVASC) tablet 2.5 mg Given 01/08/2019 8:57 AM EDT 2.5 mg 2.5 mg, Oral, DAILY, First dose on 01/08/19 at 0900, Until Discontinued, Routine amLODIPine (NORVASC) tablet 7.5 mg Given 01/08/2019 9:33 AM EDT 7.5 mg 7.5 mg, Oral, ONCE, 1 dose, On 01/08/19 at 0930, Routine aspirin chewable tablet 324 mg Given 01/07/2019 11:23 PM EDT 324 mg 324 mg, Oral, ONCE, 1 dose, On Thu01/07/19 at 2245, STAT aspirin EC tablet 81 mg Given 01/20/2019 9:14 AM EDT 81 mg 81 mg, Oral, DAILY, First dose on 01/08/19 at 1200, Until Discontinued, Routine Given 01/19/2019 8:42 AM EDT 81 mg Given 01/18/2019 8:48 AM EDT 81 mg atorvastatin (LIPITOR) tablet 20 mg Given 01/19/2019 4:10 PM EDT 20 mg 20 mg, Oral, EVERY EVENING, First dose on 01/08/19 at 1700, Until Discontinued, Routine Given 01/18/2019 4:15 PM EDT 20 mg Given 01/17/2019 4:51 PM EDT 20 mg bisacodyl (DULCOLAX) suppository 10 mg Given 01/15/2019 6:15 PM EDT 10 mg 10 mg, Rectal, DAILY PRN, Starting on Thu01/14/19 at 0909, Until 01/15/19 at 2159, Constipation, Routine bisacodyl (DULCOLAX) suppository 10 mg 10 mg, Rectal, DAILY PRN, Starting on 01/15/19 at 2 158, Until Cinthia 01/20/19 at 1658, Constipation, Routine carvedilol (COREG) tablet 12.5 mg Given 01/20/2019 9:16 AM EDT 12.5 mg 12.5 mg, Oral, 2 TIMES DAILY WITH MEALS, First dose (after last modification) on 01/17/19 at 1715, Until Discontinued, Hold for SBP under 90 or HR under 50., Routine Given 01/19/2019 4:08 PM EDT 12.5 mg Given 01/19/2019 8:43 AM EDT 12.5 mg carvedilol (COREG) tablet 6.25 mg Given 01/17/2019 10:33 AM EDT 6.25 mg 6.25 mg, Oral, 2 TIMES DAILY WITH MEALS, First dose on 01/15/19 at 1115, Until Discontinued, Routine Given 01/16/2019 4:31 PM EDT 6.25 mg Given 01/16/2019 8:20 AM EDT 6.25 mg cloNIDine (CATAPRES) tablet 0.1 mg Given 01/09/2019 10:53 AM EDT 0.1 mg 0.1 mg, Oral, 2 TIMES DAILY, First dose on 01/09/19 at 0915, Until Discontinued, Routine cloNIDine (CATAPRES) tablet 0.1 mg Given 01/09/2019 4:15 PM EDT 0.1 mg 0.1 mg, Oral, ONCE, 1 dose, On 01/09/19 at 1615, Routine cloNIDine (CATAPRES) tablet 0.1 mg Given 01/13/2019 8:44 PM EDT 0.1 mg 0.1 mg, Oral, 2 TIMES DAILY, First dose (after last modification) on Cinthia 01/13/19 at 2100, Until Discontinued, Routine cloNIDine (CATAPRES) tablet 0.2 mg Given 01/10/2019 8:55 PM EDT 0.2 mg 0.2 mg, Oral, 2 TIMES DAILY, First dose (after last modification) on 01/09/19 at 2100, Until Discontinued, Routine Given 01/10/2019 9:30 AM EDT 0.2 mg Given 01/09/2019 9:51 PM EDT 0.2 mg cloNIDine (CATAPRES) tablet 0.2 mg Given 01/13/2019 8:54 AM EDT 0.2 mg 0.2 mg, Oral, 2 TIMES DAILY, First dose (after last modification) on Thu01/12/19 at 2100, Until Discontinued, Routine Given 01/12/2019 8:53 PM EDT 0.2 mg cloNIDine (CATAPRES) tablet 0.3 mg Given 01/12/2019 8:56 AM EDT 0.3 mg 0.3 mg, Oral, 2 TIMES DAILY, First dose (after last modification) on 9/17/19 at 0900, Until Discontinued, Routine Given 01/11/2019 8:31 PM EDT 0.3 mg Given 01/11/2019 11:54 AM EDT 0.3 mg docusate sodium (COLACE) capsule 100 mg Given 01/20/2019 9:15 AM EDT 100 mg 100 mg, Oral, 2 TIMES DAILY, First dose on Thu01/14/19 at 0930, Until Discontinued, Routine Given 01/19/2019 8:49 PM EDT 100 mg Given 01/19/2019 8:43 AM EDT 100 mg furosemide (LASIX) 10 mg/mL HIGH New Bag 01/10/2019 8:55 PM ED T 20 mg/hr 2 mL/hr CONCENTRATION infusion 20 mg/hr (2 mL/hr), Intravenous, CONTINUOUS, Starting on Thu01/09/19 at 1000, Until Thu01/11/19 at 0819, High concentration: 10 mg/mL, Routine Rate/Dose Change 01/09/2019 3:49 PM EDT 20 mg/hr 2 mL/hr New Bag 01/09/2019 10:57 AM EDT 15 mg/hr 1.5 mL/hr furosemide (LASIX) 100 mg in New Bag 01/09/2019 9:30 AM EDT 15 mg/ hr 15 mL/hr sodium chloride 0.9% 100 mL infusion 15 mg/hr (15 mL/hr), Intravenous, CONTINUOUS, Starting on 01/08/19 at 1430, Until Thu01/09/19 at 0912, Routine New Bag 01/09/2019 2:14 AM EDT 15 mg/hr 15 mL/hr Continued Bag 01/09/2019 1:11 AM EDT 15 mg/hr 15 mL/hr furosemide (LASIX) injection 40 mg Given 01/08/2019 6:39 AM EDT 40 mg 40 mg, Intravenous, ONCE, 1 dose, On 01/08/19 at 0603, STAT furosemide (LASIX) injection 40 mg Given 01/08/2019 1:03 PM EDT 40 mg 40 mg, Intravenous, ONCE, 1 dose, On 01/08/19 at 1315, Routine furosemide (LASIX) injection 40 mg Given 01/08/2019 6:15 PM EDT 40 mg 40 mg, Intravenous, ONCE, 1 dose, On 01/08/19 at 1815 furosemide (LASIX) injection 80 mg Given 01/09/2019 1:09 AM EDT 80 mg 80 mg, Intravenous, ONCE, 1 dose, On Thu01/09/19 at 0130, STAT furosemide (LASIX) injection 80 mg Given 01/09/2019 4:16 PM EDT 80 mg 80 mg, Intravenous, ONCE, 1 dose, On Thu01/09/19 at 1615, Routine gabapentin (NEURONTIN) capsule 200 mg Given 01/19/2019 8:49 PM EDT 200 mg 200 mg, Oral, NIGHTLY, First dose on Thu01/08/19 at 2100, Until Discontinued, Routine Given 01/18/2019 8:56 PM EDT 200 mg Given 01/17/2019 9:22 PM EDT 200 mg gadoterate meglumine (DOTAREM) 0.5 mmol/mL Given 01/18/2019 12:25 PM EDT 12 mLs (376.9 mg/mL) injection 6.9 mL 6.9 mL (0.2 mL/kg/dose ? 34.5 kg), Intravenous, ONCE PRN, 1 dose, Starting on Thu01/18/19 at 1313, Until Thu01/18/19 at 1225, Per Protocol, Routine heparin (porcine) injection 0-4,000 Given 01/10/2019 10:55 PM ED T 1,100 Units Units 0-4,000 Units, Intravenous, BOLUS PER HEPARIN PROTOCOL, Starting on Thu01/08/19 at 0603, Until Thu01/11/19 at 0811, Per Protocol, START ADJUSTMENT SCHEDULE 6 HOURS AFTER STARTING INFUSION Heparin UFH Level between 0.1 - 0.29 IU/mL: Bolus 1,100 units Heparin UFH Level less than 0.1 IU/mL: Bolus 2,250 units, Routine Given 01/10/2019 9:40 AM EDT 1,100 Units Given 01/09/2019 12:49 PM EDT 1,100 Units heparin (Porcine) subcutaneous injection Given 019 9:17 AM EDT 5,000 Units 5,000 Units 5,000 Units, Subcutaneous, EVERY 12 HOURS SCHEDULED (2 times per day), First dose on Thu01/12/19 at 1130, Until Discontinued, Routine Given 01/19/2019 8:50 PM EDT 5,000 Units Given 01/19/2019 8:42 AM EDT 5,000 Units heparin 25,000 units in New Bag 01/11/2019 4:42 AM EDT 800 Units/h r 16 mL/hr dextrose 5% 500 mL infusion 0-5,000 Units/hr (0-100 mL/hr), Intravenous, CONTINUOUS, Starting on 01/08/19 at 0605, Until Tu01/11/19 at 0811, BEGIN infusion at 450 units per hr (12 units/kg/hr). MAX INITIAL infusion rate is 1,000 units/hr. Target Heparin UFH Level (anti-Xa activity) = 0.3 - 0.7 IU/mL Start adjustment schedule 6 hours after starting infusion. If Heparin UFH Level is: - less than 0.1 IU/mL, administer PRN bolus and increase rate by 150 units per hr (4 units/kg/hr) - 0.1 - 0.29 IU/mL, administer PRN bolus and increase rate by 50 units per hr (2 units/kg/hr) - 0.3 - 0.7 IU/mL, No Change - 0.71 - 0.85 IU/mL, decrease rate by 50 units per hr (1 units/kg/hr) - 0.86 - 1.05 IU/mL, stop infusion for 30 minutes, then decrease rate by 50 units per hr (2 units/kg/hr) - Greater than 1.05 IU/mL, stop infusion for 60 minutes, then decrease rate by 100 units per hour (3 units/kg/hr) Repeat Heparin UFH Level 6 hours after initiating heparin. Then 6 hours after each dose adjustment. When 2 consecutive Heparin UFH Level within target range of 0.3 - 0.7 IU/mL, change Heparin UFH Level to once every 24 hours with A.M. labs while on heparin. RN to order required Heparin UFH Level - Per Protocol, Routine, Indication: ACS (STEMI vs NSTEMI vs UA) New Bag 01/10/2019 10:56 PM EDT 800 Units/hr 16 mL/hr Rate/Dose Change 01/10/2019 9:40 AM EDT 750 Units/hr 15 mL/hr hydrALAZINE (APRESOLINE) injection 10 mg Given 01/08/2019 4:56 AM EDT 10 mg 10 mg, Intravenous, ONCE, 1 dose, On 01/08/19 at 0446 hydrALAZINE (APRESOLINE) injection 20 mg Given 01/08/2019 9:33 AM EDT 20 mg 20 mg, Intravenous, ONCE, 1 dose, On Thu01/08/19 at 0945 hydrALAZINE (APRESOLINE) tablet 10 mg Given 01/18/2019 8:56 PM EDT 10 mg 10 mg, Oral, 3 TIMES DAILY, First dose on Thu01/18/19 at 2100, Until Discontinued, Take with Food Hold for SBP under 90 or HR under 50., Routine hydrALAZINE (APRESOLINE) tablet 20 mg Given 01/19/2019 8:49 PM EDT 20 mg 20 mg, Oral, 3 TIMES DAILY, First dose (after last modification) on Thu01/19/19 at 0900, Until Discontinued, Take with Food Hold for SBP under 90 or HR under 50., Routine Given 01/19/2019 4:08 PM EDT 20 mg Given 01/19/2019 10:20 AM EDT 20 mg hydrALAZINE (APRESOLINE) tablet 25 mg Given 01/16/2019 8:21 AM EDT 25 mg 25 mg, Oral, 3 TIMES DAILY, First dose on Thu01/14/19 at 0900, Until Discontinued, Take with Food, Routine Given 01/15/2019 8:47 PM EDT 25 mg Given 01/15/2019 9:59 AM EDT 25 mg hydrALAZINE (APRESOLINE) tablet 25 mg Given 01/20/2019 9:15 AM EDT 25 mg 25 mg, Oral, 3 TIMES DAILY, First dose (after last modification) on Thu01/20/19 at 0900, Until Discontinued, Take with Food Hold for SBP under 90 or HR under 50., Routine isosorbide dinitrate (ISORDIL) tablet 10 mg Given 01/20/2019 5:55 AM EDT 10 mg 10 mg, Oral, 3 TIMES DAILY, First dose on Thu01/18/19 at 0830, Until Discontinued, Routine Given 01/19/2019 4:08 PM EDT 10 mg Given 01/19/2019 10:20 AM EDT 10 mg isosorbide dinitrate (ISORDIL) tablet 20 mg Given 01/20/2019 12:14 PM EDT 20 mg 20 mg, Oral, 3 TIMES DAILY, First dose (after last modification) on Thu01/20/19 at 1100, Until Discontinued, Routine labetalol (NORMODYNE) tablet 100 mg Given 01/08/2019 10:05 AM EDT 100 mg 100 mg, Oral, ONCE, 1 dose, On Thu01/08/19 at 1015, STAT labetalol (NORMODYNE) tablet 200 mg Given 01/08/2019 9:03 AM EDT 200 mg 200 mg, Oral, 3 TIMES DAILY, First dose on Thu01/08/19 at 0900, Until Discontinued, Routine labetalol (NORMODYNE) tablet 300 mg Given 01/10/2019 8:55 PM EDT 300 mg 300 mg, Oral, 2 TIMES DAILY, First dose (after last modification) on Thu01/09/19 at 1800, Until Discontinued, Routine Given 01/10/2019 10:42 AM EDT 300 mg Given 01/09/2019 6:21 PM EDT 300 mg labetalol (NORMODYNE) tablet 400 mg Given 01/14/2019 8:37 PM EDT 400 mg 400 mg, Oral, 2 TIMES DAILY, First dose (after last modification) on Thu01/11/19 at 0900, Until Discontinued, Routine Given 01/14/2019 8:59 AM EDT 400 mg Given 01/13/2019 8:44 PM EDT 400 mg labetalol (NORMODYNE,TRANDATE) injection 20 mg Given 01/08/2019 1:09 AM EDT 20 mg 20 mg, Intravenous, ONCE, 1 dose, On 01/08/19 at 0046, STAT labetalol (NORMODYNE,TRANDATE) injection 20 mg Given 01/08/2019 1:59 AM EDT 20 mg 20 mg, Intravenous, ONCE, 1 dose, On 01/08/19 at 0155, STAT levothyroxine (SYNTHROID) tablet 50 mcg Given 01/09/2019 5:54 AM EDT 50 mcg 50 mcg, Oral, DAILY, First dose on Thu01/08/19 at 0900, Until Discontinued, Routine Given 01/08/2019 9:33 AM EDT 50 mcg levothyroxine (SYNTHROID) tablet 50 mcg Given 01/09/2019 6:30 AM EDT 50 mcg 50 mcg, Oral, ONCE, 1 dose, On Thu01/09/19 at 0630, Routine levothyroxine (SYNTHROID) tablet 75 mcg Given 01/20/2019 5:55 AM EDT 75 mcg 75 mcg, Oral, DAILY, First dose (after last modification) on 01/10/19 at 0600, Until Discontinued, Routine Given 01/19/2019 5:19 AM EDT 75 mcg Given 01/18/2019 5:57 AM EDT 75 mcg lisinopril (PRINIVIL;ZESTRIL) tablet 5 m g Given 01/16/2019 12:10 PM EDT 5 mg 5 mg, Oral, DAILY, First dose on 01/16/19 at 1130, Until Discontinued, Routine magnesium oxide (MAG-OX) tablet 400 mg Given 01/12/2019 8:55 AM EDT 400 mg 400 mg, Oral, 2 TIMES DAILY, First dose on 01/08/19 at 2100, Until Discontinued, Routine Given 01/11/2019 8:31 PM EDT 400 mg Given 01/11/2019 9:00 AM EDT 400 mg magnesium oxide (MAG-OX) tablet 400 mg Given 01/16/2019 9:43 AM EDT 400 mg 400 mg, Oral, 2 TIMES DAILY, First dose on 01/16/19 at 0930, Until Discontinued, Routine metOLazone (ZAROXOLYN) tablet 5 mg Given 01/10/2019 2:15 PM EDT 5 mg 5 mg, Oral, ONCE, 1 dose, On 01/10/19 at 1415, Routine ondansetron (ZOFRAN) injection 4 mg Given 01/09/2019 10:06 AM EDT 4 mg 4 mg, Intravenous, ONCE, 1 dose, On 01/09/19 at 1015 pantoprazole (PROTONIX) tablet 20 mg Given 01/20/2019 9:17 AM EDT 20 mg 20 mg, Oral, DAILY, First dose on 01/08/19 at 0915, Until Discontinued, DO NOT CRUSH OR OPEN, Routine Given 01/19/2019 8:43 AM EDT 20 mg Given 01/18/2019 8:53 AM EDT 20 mg perflutren protein-A microspheres (OPTISON) Given 01/08/2019 8:4 0 AM EDT 1 mL 0.22 mg/mL injection 1 mL 1 mL, Intravenous, ONCE PRN, 1 dose, Starting on 01/08/19 at 0914, Until 01/08/19 at 0840, for enhancement of sub-optimal echo images, Echo Lab (Intra-Procedure), Routine polyethylene glycol (MIRALAX) packet 17 g Given 01/18/2019 8:57 PM EDT 17 g 17 g, Oral, 2 TIMES DAILY, First dose on 01/15/19 at 2215, Until Discontinued, Routine Given 01/16/2019 9:32 PM EDT 17 g Given 01/16/2019 8:20 AM EDT 17 g potassium chloride (K-DUR/KLOR-CON) extended Given 11:45 AM EDT 20 mEq release tablet 20 mEq 20 mEq, Oral, ONCE, 1 dose, On 01/15/19 at 1145, Routine potassium chloride (K-DUR/KLOR-CON) extended Given 5:54 AM EDT 40 mEq release tablet 40 mEq 40 mEq, Oral, ONCE, 1 dose, On 01/09/19 at 0600, 20 mEq tablet may be dissolved in water for administration, Routine potassium chloride (K-DUR/KLOR-CON) extended Given 8:44 AM EDT 40 mEq release tablet 40 mEq 40 mEq, Oral, ONCE, 1 dose, On Thu01/09/19 at 0730, Routine potassium chloride (K-DUR/KLOR-CON) extended Given 12:03 PM EDT 40 mEq release tablet 40 mEq 40 mEq, Oral, ONCE, 1 dose, On Thu01/10/19 at 1200, Routine potassium chloride (K-DUR/KLOR-CON) extended Given 2:59 PM EDT 40 mEq release tablet 40 mEq 40 mEq, Oral, ONCE, 1 dose, On Thu01/10/19 at 1400, Routine potassium chloride (K-DUR/KLOR-CON) extended Given 1:05 PM EDT 40 mEq release tablet 40 mEq 40 mEq, Oral, EVERY 4 HOURS, 2 doses, First dose on Thu01/12/19 at 1000, Last dose on Thu01/12/19 at 1400, STAT Given 01/12/2019 9:53 AM EDT 40 mEq potassium chloride (K-DUR/KLOR-CON) extended Given 8:54 AM EDT 40 mEq release tablet 40 mEq 40 mEq, Oral, ONCE, 1 dose, On 9/22/19 at 0930, Routine potassium chloride (K-DUR/KLOR-CON) extended Given 8:53 AM EDT 40 mEq release tablet 40 mEq 40 mEq, Oral, ONCE, 1 dose, On Thu01/18/19 at 0900, Routine potassium chloride (Kayciel) (1.33 mEq/mL) Given 01/09/2019 6:24 AM EDT 40 mEq oral liquid 40 mEq 40 mEq, Oral, ONCE, On Thu01/09/19 at 0630, 1 dose regadenoson (LEXISCAN) injection 0.4 mg Given 01/11/2019 10:50 AM EDT 0.4 mg 0.4 mg, Intravenous, ONCE, 1 dose, On Thu01/11/19 at 1130, Routine senna (SENOKOT) tablet 8.6 mg Given 01/20/2019 9:14 AM EDT 8.6 mg 8.6 mg, Oral, DAILY, First dose on 01/15/19 at 2215, Until Discontinued, Routine Given 01/19/2019 8:42 AM EDT 8.6 mg Given 01/18/2019 8:48 AM EDT 8.6 mg sodium chloride 0.9 % (flush) flush 5 mL Given 01/20/2019 9:00 AM EDT 5 mLs 5 mL, Intravenous, 2 TIMES DAILY, First dose on 01/08/19 at 0900, Until Discontinued, Routine Given 01/19/2019 8:50 PM EDT 5 mLs Given 01/19/2019 10:21 AM EDT 5 mLs technetium (Tc-99m) sestamibi injection Given 01/11/2019 10:50 A M EDT 25.8 mCi 25.8 mCi 25.8 mCi, Intravenous, ONCE PRN, 1 dose, Starting on Thu01/11/19 at 1109, Until Thu01/11/19 at 1050, Per Protocol, Routine technetium (Tc-99m) sestamibi injection Given 01/11/2019 9:00 AM EDT 8 mCi Left Arm 8 mCi 8 mCi, Intravenous, ONCE PRN, 1 dose, Starting on Thu01/11/19 at 0900, Until Thu01/11/19 at 0900, Per Protocol, Routine torsemide (DEMADEX) tablet 20 mg Given 01/14/2019 9:00 AM EDT 20 mg 20 mg, Oral, DAILY, First dose (after last modification) on Thu01/14/19 at 0900, Until Discontinued, Routine torsemide (DEMADEX) tablet 40 mg Given 01/13/2019 8:54 AM EDT 40 mg 40 mg, Oral, DAILY, First dose (after last modification) on Thu01/12/19 at 0900, Until Discontinued, Routine Given 01/12/2019 8:54 AM EDT 40 mg torsemide (DEMADEX) tablet 60 mg Given 01/11/2019 1:38 PM EDT 60 mg 60 mg, Oral, DAILY, First dose on Thu01/11/19 at 1300, Until Discontinued, Routine documented in this encounter Active and Recently Administered Medications Times are shown in EDT. Scheduled Medication Order 01/18/2019 01/19/2019 01/20/2019 amLODIPine (NORVASC) tablet 10 mg 0848 (Given - Provid er: Myrna Almaguer RN) 0842 (Given - Provider: Myrna Almaguer RN) 091 7 (Given - Provider: Louisa Miller RN) 10 mg, Oral, DAILY, First dose on Sun at 0900, Until Discontinued, Routine aspirin EC tablet 81 mg 0848 (Given - Provider: Myrna Almaguer RN) 0842 (Given - Provider: Myrna Almaguer RN) 0914 (Given - Provider: Louisa Miller RN) 81 mg, Oral, DAILY, First dose on Sat at 1200, Until Discontinued, Routine atorvastatin (LIPITOR) tablet 20 mg 1615 (Given - Prov ider: Myrna Almaguer RN) 1610 (Given - Provider: Myrna Almaguer RN) 20 mg, Oral, EVERY EVENING, First dose o n 01/08/19 at 1700, Until Discontinued, Routine carvedilol (COREG) tablet 12.5 mg 0848 (Given - Provid er: Myrna Almaguer RN)1616 (Given - Provider: Myrna Almaguer RN) 0843 (Given - Provider: Myrna Almaguer RN)1608 (Given - Provider: Myrna Almaguer RN) 0916 (Given - Provider: Louisa Miller RN) 12.5 mg, Oral, 2 TIMES DAILY WITH MEALS, First dose on Thu01/17/19 at 1715, Until Discontinued, Hold for SBP under 90 or HR under 50., Routine docusate sodium (COLACE) capsule 100 mg 0848 (Given - Provider: Myrna Almaguer RN)2056 (Given - Provider: Leah Shetty RN) 0843 (Given - Provider: Myrna Almaguer RN)2048 (Given - Provider: Leah Shetty RN) 0915 (Given - Provider: Krish Gutiérrez) 100 mg, Oral, 2 TIMES DAILY, First dose on Thu01/14/19 at 0930, Until Discontinued, Routine gabapentin (NEURONTIN) capsule 200 mg 2055 (Given - Pr ovider: Leah Shetty RN) 2048 (Given - Provider: Leah Shetty RN) 200 mg, Oral, NIGHTLY, First dose on Thu01/08/19 at 2100, Until Discontinued, Routine heparin (Porcine) subcutaneous injection 5,000 Units 0 849 (Given - Provider: Myrna Almaguer RN)2055 (Given - Provider: Leah Shetty RN) 0842 (Given - Provider: Myrna Almaguer RN)2049 (Given - Provider: Leah Shetty RN) 0917 (Given - Provider: Krish Gutiérrez) 5,000 Units, Subcutaneous, EVERY 12 HOUR S SCHEDULED (2 times per day), First dose on Thu01/12/19 at 1130, Until Discontinued, Routine hydrALAZINE (APRESOLINE) tablet 10 mg (CANCELED) 2055 (Given - Provider: Leah Shetty RN) 10 mg, Oral, 3 TIMES DAILY, First dose o n Thu01/18/19 at 2100, Until Discontinued, Take with Food Hold for SBP under 90 or HR under 50., Routine hydrALAZINE (APRESOLINE) tablet 20 mg (CANCELED) 1020 (Given - Provider: Myrna Almaguer RN)1608 (Given - Provider: Myrna Almaguer RN)2048 (Given - Provider: Leah Shetty RN) 20 mg, Oral, 3 TIMES DAILY, First dose o n 01/19/19 at 0900, Until Discontinued, Take with Food Hold for SBP under 90 or HR under 50., Routine hydrALAZINE (APRESOLINE) tablet 25 mg 0915 (Given - Provider: Louisa Miller RN) 25 mg, Oral, 3 TIMES DAILY, First dose o n Cinthia 01/20/19 at 0900, Until Discontinued, Take with Food Hold for SBP under 90 or HR under 50., Routine isosorbide dinitrate (ISORDIL) tablet 10 mg (CANCELED) 0853 (Given - Provider: Myrna Almaguer RN)1615 (Given - Provider: Myrna Almaguer RN) 0519 (Given - Provider: Leah Shetty RN)1020 (Given - Provider: Myrna Almaguer RN)1608 (Given - Provider: Myrna Almaguer, LAWRENCE) 0555 (Given - Provider: Leah Shetty RN) 10 mg, Oral, 3 TIMES DAILY, First dose o n 01/18/19 at 0830, Until Discontinued, Routine isosorbide dinitrate (ISORDIL) tablet 20 mg 1214 (Given - Provider: Louisa Miller RN) 20 mg, Oral, 3 TIMES DAILY, First dose o n Cinthia 01/20/19 at 1100, Until Discontinued, Routine levothyroxine (SYNTHROID) tablet 75 mcg 0557 (Given - Provider: Gadiel Padilla RN) 0519 (Given - Provider: Laeh Shetty RN) 0555 (Given - Provider: Leah Shetty RN) 75 mcg, Oral, DAILY, First dose on Mon at 0600, Until Discontinued, Routine pantoprazole (PROTONIX) tablet 20 mg 0853 (Given - Pro vider: Myrna Almaguer RN) 0843 (Given - Provider: Myrna Almaguer RN) 091 7 (Given - Provider: Louisa Miller RN) 20 mg, Oral, DAILY, First dose on Sat at 0915, Until Discontinued, DO NOT CRUSH OR OPEN, Routine polyethylene glycol (MIRALAX) packet 17 g 0900 (Not Gi mehran - Provider: Myrna Almaguer RN - Reason: Patient/family refused)2056 (Given - Provider: Leah Shetty RN) 0900 (Not Given - Provider: Myrna Almaguer RN - Reason: Patient/family refused)2100 (Not Given - Provider: Leah Shetty RN - Reason: Patient/family refused) 0900 (Not Given - Provider: Louisa Miller RN - Reason: Patient/family refused) 17 g, Oral, 2 TIMES DAILY, First dose on 01/15/19 at 2215, Until Discontinued, Routine potassium chloride (K-DUR/KLOR-CON) extended release t ablet 40 mEq (COMPLETED) 0853 (Given - Provider: Myrna Almaguer RN) 40 mEq, Oral, ONCE, 1 dose, 01/18/19 at 0900, Routine senna (SENOKOT) tablet 8.6 mg 0848 (Given - Provider: Myrna Almaguer RN) 0842 (Given - Provider: Myrna Almaguer RN) 091 4 (Given - Provider: Louisa Miller RN) 8.6 mg, Oral, DAILY, First dose on Sat at 2215, Until Discontinued, Routine sodium chloride 0.9 % (flush) flush 5 mL 0848 (Given - Provider: Myrna Almaguer RN)2056 (Given - Provider: Leah Shetty RN) 1021 (Given - Provider: Myrna Almaguer RN)2049 (Given - Provider: Leah Shetty RN) 0900 (Given - Provider: Krish Gutiérrez) 5 mL, Intravenous, 2 TIMES DAILY, First dose on 01/08/19 at 0900, Until Discontinued, Routine PRN Medication Order 01/18/2019 01/19/2019 01/20/2019 acetaminophen (TYLENOL) tablet 500 mg 500 mg, Oral, EVERY 6 HOURS PRN, Startin g 01/08/19 at 0900, Until Cinthia 01/20/19 at 1658, Pain, Maximum dose of acetaminophen is 4000 mg from all sources in 24 hours., Routine alum-mag hydroxide-simeth (Maalox) (40 mg-40 mg-4 mg/mL) oral li quid 10 mL 10 mL, Oral, 3 TIMES DAILY PRN, Starting 01/11/19 at 2117, Until Cinthia 01/20/19 at 1658, Heartburn, Routine bisacodyl (DULCOLAX) suppository 10 mg 10 mg, Rectal, DAILY PRN, Starting Sat at 2158, Until Cinthia 01/20/19 at 1658, Constipation, Routine gadoterate meglumine (DOTAREM) 0.5 mmol/ mL (376.9 mg/mL) injection 6.9 mL (COMPLETED) 1225 (Given - Provider: Wilman Orozco) 6.9 mL (0.2 mL/kg/dose ? 34.5 kg), Intravenous, ONCE PRN, 1 dose, Starting e 01/18/19 at 1313, Until 01/18/19 at 1225, Per Protocol, Routine lidocaine (XYLOCAINE) 10 mg/mL (1 %) injection 3 mg 3 mg (0.3 mL), Subcutaneous, ONCE PRN, 1 dose, Starting 01/08/19 at 0657, Until Cinthia 01/20/19 at 1658, for discomfort with PIV insertion, Routine nitroGLYcerin (NITROSTAT) SL tablet 0.4 mg 0.4 mg, Sublingual, EVERY 5 MIN PRN, Sta rting 01/08/19 at 0657, Until Cinthia 01/20/19 at 1658, Chest pain, May repeat every 5 minutes for a total of three doses. Notify provider if chest pain not relieve d with nitroglycerin. Do not administer nitroglycerin if the patient has received or taken phosphodiesterase (PDE-5) inhibitors such as sildenafil, tadalafil or vardenafil within the last 24 to 72 hours., Routine sodium chloride 0.9 % (flush) flush 5-20 mL 5-20 mL, Intravenous, EVERY 1 MIN PRN, S tarting 01/08/19 at 0657, Until Cinthia 01/20/19 at 1658, flush, Flush pertains to all indwelling lines. Flush per protocol found in the job aid using the link provided on this medication record., Routine documented in this encounter Care Teams Ems Driver Relationship Specialty Start Date End Date Sanjuanita Lee MD PCP - General 03/05/13 12/23/[address] [place] [address] documented as of this encounter
--- OUTSIDE RECORDS SUMMARY | 2022-02-22 23:34 | XMS_ITS | Encounter Summary ---
:1950 Author Organization [facility] [place] [address] Care Team Providers Name Role Phone Sanjuanita Lee MD Primary Care Provider Encounter Details Date Type Department Care Team Description 11/15/2018 Telephone Nephrology Hypertension at Marsha Barber MD [facility] Jennifer [place] [address] [place] [address] [phone] (Wo rk) Social History Tobacco Use Types [...] this encounter Miscellaneous Notes Telephone Encounter - Marsha Guerra MD - 11/15/2018 10:03 AM EDT This is a brief record of a telephone call performed via the transfer center A full circus supervisor of this call is available from the transfer center on request. Charlene Walldelmargreta from OSH admitted with volume overload and HTN and fever BP > 170-180 bilaterla pulmonary infiltrates Creatinine 2.78. Stable Has recovered from URI Will have BMP locally in 2-3 days and fax results to out office attn Dr Kemp who follows her in clinin Will let Dr Kemp know about this call documented in this encounter Plan of Treatment Scheduled Procedures Name Priority Associated Diagnoses Date/Time EGD, UPPER GI ENDOSCOPY Gastroesophageal reflux disease, esophagitis presence not specifi ed documented as of this encounter Visit Diagnoses Not on filedocumented in this encounter Care Teams Final Operations Technician Relationship Specialty Start Date End Date Sanjuanita Lee MD PCP - General 03/05/13 12/23/[address] [place] [address] documented as of this encounter
--- OUTSIDE RECORDS SUMMARY | 2022-02-22 23:34 | XMS_ITS | Encounter Summary ---
:1950 Author Organization [facility] [place] [address] Care Team Providers Name Role Phone Sanjuanita Lee MD Primary Care Provider Reason for Visit Reason Comments Hospital Transfer Auth/Cert Specialty Diagnoses / Procedures Referred By Contact Refer red To Contact Diagnoses Chest pain Dyspnea, unspecified type Chest pain, unspecified type Abdominal aortic aneurysm (AAA) without rupture Procedures EMERGENCY IPI Referral ID Status Reason Start Date Expiration Date Visits Requ ested Visits Authorized [id number] 1 1 Encounter Details Date Type Department Care Team Description 01/14/2019 Surgery Acupuncture Physician Brent Durbin, CARDIAC CATHETERIZATION [facility] [place] [address] [place] [address] [phone] (Wo rk) Social History Tobacco Use Types [...] Sign Reading Time Taken Comments Blood Pressure 128/61 01/14/2019 3:50 PM EDT Pulse 63 01/14/2019 3:50 PM EDT Temperature 36.8 ??C (98.2 ??F) 01/14/2019 3:50 PM EDT Respiratory Rate 18 01/14/2019 3:50 PM EDT Oxygen Saturation 96% 01/14/2019 3:50 PM EDT Inhaled Oxygen Concentration - - Weight 35.8 kg (78 lb 14.8 oz) 01/13/2019 4:39 AM EDT Height - - Body Mass Index 15.33 01/15/2019 8:46 PM EDT documented in this encounter Discharge Summaries Kalee Irving PA - 01/20/2019 2:58 PM EDT Images from the original note were not included. Discharge Summary Patient Name: Pretty Harmon Patient Age: 68 y.o. Language: Togolese Race: White Ethnicity: Not nor Admit date: [...] 5. HF team to see patient at [facility], Haley D'Meli, ADMINISTRATIVE SUPPORT SPECIALIST 6. Please monitor serum sodium levels, discharge sodium 125. Patient placed on a 1.2 L fluid restriction 7. Please monitor daily weights. No diuretic at discharge in the setting of hyponatremia and euvolemic state Inpatient Provider Contact Information: MD Thomas Atkinson II, MD Emily Swann, KYRA Mercedes, KYRA Cardiovascular Medicine Discharge Diagnoses (Hospital Problems) and [...] artery duplex 01/17/19: Interpretation: Right: Patent distal [place] main renal artery with no evidence of [...] cleared with theraphy who was transferred from [facility] to [facility] ED for evaluation of suspected AAA rupture. ?? The patient presented to the [facility] ED yesterday with c/o progressively worsening SOB [...] health/low tin diet. After she saw her Assistant Boiler Operator, she stated that BP readings have been [...] orthopnea, pnd, leg swelling, calf tenderness. In [facility] ED, her BP: 180's/100's, HR: 70, Spo2: low 90s on 3L NC. On exam Presenting EKG showed NSR, LVH voltage criteria and STD on inferolateral leads but unchanged from September 2018. A non-con CT chest/abdomen done at [facility] that showed Asc aor 3.5cm, abd aneurysm [...] remains elevated at 8.1, unchanged from September (8.83). In this setting synthroid was up-titrated [...] ~45 years up to 1 ppd at [place], quit ~2000 Instructions Given to Patient at Discharge: There are no outpatient Patient Instructions on file for this admission. General Instructions Call your doctor if: Chest pain, dyspnea, pain or swelling in legs occurs. If you have non-emergent questions, prior to your follow-up visit please call one of the marine operations coordinator on Thursday-Thursday between the hours of 8A- 5PM. Cardiology Clinic number @ [phone]; HF clinic at [phone] If off hours contact the cardiac fellow on- call. Hospital Aircraft Electronics Technical Officer can help you. [facility] phone number [phone] Return to work: Resume usual activities as tolerated Driving: Resume if driving prior Follow up Appointments: Doctor Where Phone # Date Time Sanjuanita Lee MD [address] [facility] [address] 02/01/19 8:30 am Cardiology Haley Cotter [place], [place] [phone] 02/18/19 1:10 pm Home oxygen therapy: N/A Arrangements for VNA/home care: Y Heart Failure Action Plan Call for weight gain of 2 pounds overnight or 5 pounds in 5 days. Future Appointments and Orders Future Appointments and Orders Future Appointments Provider Department Dept Phone 02/18/2019 1:20 PM Rhea Cotter APRN Cardiology at [facility] Arrive at: [facility] [address] [phone] Future Orders Complete By Expires AAA Duplex, Complete/Bilateral [VAS51 Custom] 07/11/2019 (Approximate) 01/10/2020 Process Instructions: There is no in-house vascular superintendent geophysical laboratory available on weeknights (5pm-8am), weekends, or holidays. IF THIS IS A REQUEST FOR AN EMERGENT STUDY DURING THOSE HOURS, please have the senior provider responsible for the patient page the Vascular Surgery Fellow/Senior Resident waste cotton cleaner to discuss options. Scheduling Instructions: Questions: Indication for study/signs & symptoms: hx 4cm infrarenal AAA Question to be answered: AAA surveillance Preferred location?: [facility] Renal Artery Duplex, Unil [VAS48 Custom] 07/11/2019 (Approximate) 01/10/2020 Process Instructions: There is no in-house vascular superintendent geophysical laboratory available on weeknights (5pm-8am), weekends, or holidays. IF THIS IS A REQUEST FOR AN EMERGENT STUDY DURING THOSE HOURS, please have the senior provider responsible for the patient page the Vascular Surgery Fellow/Senior Resident waste cotton cleaner to discuss options. Scheduling Instructions: Questions: Laterality: Right Indication for study/signs & symptoms: hx R external iliac to R renal artery bypass Question to be answered: assess bypass graft patency Preferred location?: [facility] Referral to Home Health - at DISCHARGE [[id number] CPT(R)] As directed Process Instructions: Scheduling Instructions: [...] Nurse Practitioner, Clinical Nurse Specialist or Physician Fbi Field Agent who is working directly with them, had [...] appropriate for home health services. Patient Location: [address] [address] (home) No relevant phone numbers on file. [facility] [place], [place] HOME Health Agency: [facility] PHONE: [phone] FAX: [phone] RN: Assess cardiopulmonary assessment, vital signs, medication [...] need to be obtained from this patient'sPCP: [place] [address] Questions: Agency name and contact information: [facility] Patient location post discharge: home What services [...] follow-up visit please call one of the marine operations coordinator on Thursday-Thursday between the hours of 8A- 5PM. Cardiology Clinic number @ [phone]; HF clinic at [phone] If off hours contact the cardiac fellow on- call. Hospital Aircraft Electronics Technical Officer can help you. Hospital phone number [phone] Return to work: Resume usual activities as tolerated Driving: Resume if driving prior Follow up Appointments: Doctor Where Phone # Date Time MD Katia [address] / [facility] [address] 02/01/19 8:30 am Cardiology Haley Leal, [place] [phone] 02/18/19 1:10 pm Home oxygen therapy: N/A [...] 20 Take 1 tablet by 90 tablet 09/25 mg Tablet mouth every evening. cloNIDine [...] Miller RN - 01/20/2019 2:44 PM EDT AVS vancey reviewed with Pretty. No additional questions at this time. Disconnected from telemetry. IV removed. Discharged home with with VNA. Greyson Jolly MD - 01/20/2019 10:55 AM EDT Images from the original note were not included. Inpatient Cardiology Progress Note Patient Name: Pretty Harmon Service: ACTIVITIES ASSISTANT / PA Responsible Attending: Greyson Jolly MD [...] bed ambulating without lightheadedness or pre syncope. Caballero dc'd this morning. Awaitvoiding trial. Tentatively plan for [...] and vitals reviewed. Lab Comments: Recent Labs 01/20/1942801/19/1951701/18/19429 WBC 7.0 8.1 7.5 HGB 12.7 11.7 [...] last 168 hours. Recent Labs 01/20/1942801/19/1951701/18/19 0430 CALCIUM 9.8 9.1 9.1 MAGNESIUM 1.01 0.98 1.05 No results for input(s): CK, TROPONINT in the last 168 hours. Pertinent Radiographic/Diagnostic Results: Renal artery duplex: 01/17/19 Prelim read only: Interpretation: ?? Right: Patent distal [place] main renal artery with no evidence of [...] bypass August 2018, hypothyroid who presented to [facility] in the setting of acute dyspnea and [...] wall motion abnormalities as above Admit ProBNP >47430, repeat level the same [place] to be approaching euvolemic status with improved [...] will let her go home. F/u in [facility] with Dr. Burnett. Bimal Negron MD - [...] grossly normal. STUDIES: Labs: CBC: Recent Labs 01/19/1951701/18/1942901/17/19 0354 WBC 8.1 7.5 8.3 HGB 11.7 11.4* 11.4* PLATELET 250 258 243 Chemistry: Recent Labs 01/19/1951701/18/19 0430 01/17/19 0354 01/08/19 0004 01/07/19 2159 01/04/19 1252 NA 124* 120* 120* < > [...] in this interval not displayed. Recent Labs 01/19/1951701/18/19 0430 01/17/19 0354 01/04/19 1252 11/09/18 1226 [...] negative for reversible ischemia. Euvolemic off diuretics. Pgsyreawkwjp-ebocjxsujobo-vvywszcre to congestive heart failure. Potassium today is [...] ?? Continue 2 g Na diet + [id number] without Renal diet restriction as her K [...] Diagnosis Date ??? AAA (abdominal aortic aneurysm) [id number] angiogram; 3.2 cm infrarenal ??? Constipation ??? Dyslipidemia ??? Hypertension ??? Insomnia ??? Peripheral vascular disease ??? Renal artery stenosis R; per 2010 angiogram Active Orders Diet Renal diet 2 [...] encounter: 35.9 kg (79 lb 2.3 oz). [place] Body Weight (IBW): Female patients must weigh [...] states she dislikes the food. Drinking Nepro BID,Corn Picker discussed appropriate choices and encouraged PO. Pt w/ low BMI, she continues to meet criteria for severe malnutrition. Recommend liberalizing diet as much as possible to encourage intake. TAMI Huber Beeper #: [id number] Greyson Jolly MD - 01/19/2019 11:46 AM EDT Images from the original note were not included. Inpatient Cardiology Progress Note Patient Name: Pretty Harmon Service: ACTIVITIES ASSISTANT / PA Responsible Attending: Greyson Jolly MD [...] 0439 35.8 kg (78 lb 14.8 oz) Physical [...] and vitals reviewed. Lab Comments: Recent Labs 01/19/1951701/18/19 0430 01/17/19 0354 WBC 8.1 7.5 8.3 HGB 11.7 11.4* 11.4* HCT 33.7* 33.5* 32.0* PLATELET 250 258 243 No results for input(s): INR in the last 168 hours. Recent Labs 01/19/1951701/18/19 0430 01/17/19 0354 NA 124* 120* 120* K 4.3 3.3* 3.7 CL 84* 77* 76* CO2 BUN 77* 77* 69* CREATININE 3.33* 3.65* 3.86* No results for input(s): AST, ALT, ALKPHOS, BILITOT, BILIDIR in the last 168 hours. Recent Labs 01/19/1951701/18/190 01/17/19 0354 CALCIUM 9.1 9.1 9.2 MAGNESIUM 0.98 1.05 0.96 No results for input(s): CK, TROPONINT in the last 168 hours. Pertinent Radiographic/Diagnostic Results: Renal artery duplex: 01/17/19 Prelim read only: Interpretation: ?? Right: Patent distal [place] main renal artery with no evidence of [...] bypass August 2018, hypothyroid who presented to [facility] in the setting of acute dyspnea and [...] wall motion abnormalities as above Admit ProBNP >15317, repeat level the same [place] to be approaching euvolemic status with improved [...] ?? FULL CODE Discussed with MD Greg Atkinson APRN 01/19/2019 STAFF ADDENDUM Patient interviewed and examined. [...] grossly normal. STUDIES: Labs: CBC: Recent Labs 01/18/1942901/17/1935301/16/19 0520 WBC 7.5 8.3 11.2* HGB 11.4* 11.4* 11.0* PLATELET 258 243 252 Chemistry: Recent Labs 01/18/19 04301/17/19 0354 01/16/19200101/08/19 0004 01/07/19215801/04/19 1252 NA 120* 120* 118* < > [...] this interval not displayed. Recent Labs 01/18/19 04301/17/19 0354 01/16/19200101/16/19 1306 01/04/19 1252 11/09/18 1226 [...] negative for reversible ischemia. Euvolemic off diuretics. Kvxhykwbusxz-tvskhyvrziqi-dmytoryio to congestive heart failure. Potassium today is [...] Progress Note Patient Name: Pretty Harmon Service: ACTIVITIES ASSISTANT / PA Responsible Attending: Thomas Terrazas II, [...] and vitals reviewed. Lab Comments: Recent Labs 01/18/1942901/17/1935301/16/19 0520 WBC 7.5 8.3 11.2* HGB 11.4* [...] in the last 168 hours. Recent Labs 01/18/1942901/17/1935301/16/19200101/16/19 1306 CALCIUM 9.1 9.2 9.0 9.3 MAGNESIUM 1.05 0.96 -- 0.88 No results for input(s): CK, TROPONINT in the last 168 hours. Pertinent Radiographic/Diagnostic Results: Renal artery duplex: 01/17/19 Prelim read only: Interpretation: ?? Right: Patent distal [place] main renal artery with no evidence of [...] bypass August 2018, hypothyroid who presented to [facility] in the setting of acute dyspnea and [...] wall motion abnormalities as above Admit ProBNP >03911, repeat level the same [place] to be approaching euvolemic status with improved [...] with Thomas Terrazas II, MD Gregchintan Mercedes, ADMINISTRATIVE SUPPORT SPECIALIST 01/18/2019 Cardiology Staff Addendum Patient Name: Pretty Harmon Patient Admit Date: 01/07/2019 I interviewed and examined the patient during comprehensive bedside rounds. I concur with the summary of interval events, active hospital-focused problem list and plan of care outlined in Ms. Mercedes'snote dated 01/18/2019. I personally reviewed the medications, [...] and follow herserum sodiums. Otherwise as per Daren. I am a credentialed closing machine operator at [facility] and [...] Progress Note Patient Name: Pretty Harmon Service: ACTIVITIES ASSISTANT / PA Responsible Attending: Thomas Terrazas II, [...] bypass August 2018, hypothyroid who presented to [facility] in the setting of acute dyspnea and [...] wall motion abnormalities as above Admit ProBNP >98077, repeat level the same [place] to be approaching euvolemic status with improved [...] CODE Discussed with Thomas Terrazas II, MD Greg Daren, ADMINISTRATIVE SUPPORT SPECIALIST 01/17/2019 Cardiology Staff Addendum Patient Name: Pretty [...] per Ms. Mercedes. 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 STUDIES: Labs: CBC: Recent Labs 01/17/1935301/16/19 0520 01/15/19 0439 WBC 8.3 11.2* 10.7* HGB 11.4* 11.0* 11.3* PLATELET 243 252 269 Chemistry: Recent Labs 01/17/19 03501/16/19200101/16/19 1306 01/08/19 0004 01/07/19 2159 01/04/19 1252 [...] this interval not displayed. Recent Labs 01/17/19 03501/16/19200101/16/19 1306 01/16/19 0853 01/04/19 1252 11/09/18 1226 [...] negative for reversible ischemia. Euvolemic off diuretics. Uqefokonnurg-mxcsqggdqvvw-tsofcexnd to congestive heart failure. Potassium today is [...] Progress Note Patient Name: Pretty Harmon Service: ACTIVITIES ASSISTANT / PA Responsible Attending: Thomas Terrazas II, [...] 36.2 kg (79 lb 12.9 oz) 01/13/19 043 35.8 kg (78 lb 14.8 oz) 01/12/19 [...] very lipscomb. Lab Comments: Recent Labs 01/16/19 0501/15/1943801/14/19341 WBC 11.2* 10.7* 12.8* HGB 11.0* 11.3* 11.8 HCT 30.7* 32.9* 33.4* PLATELET 252 269 285 No results for input(s): INR in the last 168 hours. Recent Labs 01/16/19 0853 01/16/19 0501/15/19438 NA 117* 116* 123* K 3.6 3.4* 3.4* CL 72* 72* 73* CO2 27 28 32* BUN 64* 63* 70* CREATININE 3.53* 3.33* 3.83* No results for input(s): AST, ALT, ALKPHOS, BILITOT, BILIDIR in the last 168 hours. Recent Labs 01/16/19 0853 01/16/19 0520 01/15/1943801/12/19 0544 01/10/19 1810 CALCIUM 9.1 9.4 9.4 [...] 47%. Wall motion abnormalities as above. Assessment: rPetty Harmon is a 68 y.o. female with a past medical history of AAA, hypertension, CKD stage IV-V, bilateral renal artery stenosis status post renal artery bypass August 2018, hypothyroid who presented to [facility] in the setting of acute dyspnea and [...] wall motion abnormalities as above Admit ProBNP >91383, repeat level the same [place] to be approaching euvolemia with improved symptom [...] with Dr. Terrazas. REAGAN Barone 01/16/2019 Pager [phone] Cardiology Staff Addendum Patient Name: Pretty Harmon Patient Admit Date: 01/07/2019 I interviewed and examined the patient during comprehensive bedside rounds. I concur with the summary of interval events, active hospital-focused problem list and plan of care outlined in Ms. NewmanAnkush's note dated 01/16/2019. I personally reviewed the [...] serum sodium as necessary. Otherwise as per Ankush. I am a credentialed closing machine operator at [facility] and I am currently the attending of record for the patient's admission. I certify that this patient meets or has met the criteria for inpatient treatment for their acute condition meeting a minimum of two midnights. Thomas Terrzaas MD Thomas Terrazas II, MD - 01/15/2019 3:03 PM EDT Images from the original note were not included. Inpatient Cardiology Progress Note Patient Name: Pretty Harmon Service: ACTIVITIES ASSISTANT / PA Responsible Attending: Thomas Terrazas II, [...] Intake/Output Summary (Last 24 hours) at 01/15/2019 1539 Last data filed at 01/15/2019 1000 Gross per 24 hour Intake 1420 ml Output 1300 ml Net 120 ml Patient Vitals for the past 168 hrs: Weight 01/15/19 0541 36.2 kg (79 lb 12.9 oz) 01/13/19 043 35.8 kg (78 lb 14.8 oz) 01/12/19 [...] and very lipscomb. Lab Comments: Recent Labs 01/15/1943801/14/1934101/13/19455 WBC 10.7* 12.8* 12.2* HGB 11.3* 11.8 11.8 HCT 32.9* 33.4* 34.2* PLATELET 269 285 299 No results for input(s): INR in the last 168 hours. Recent Labs 01/15/1943801/14/1934101/13/19455 NA 123* 126* 125* K 3.4* 3.7 4.1 CL 73* 75* 79* CO2 32* 32* 30 BUN 70* 69* 64* CREATININE 3.83* 3.97* 3.48* No results for input(s): AST, ALT, ALKPHOS, BILITOT, BILIDIR in the last 168 hours. Recent Labs 01/15/1943801/14/1934101/13/19 0456 01/12/19 0544 01/10/19 1810 01/09/19 1906 [...] bypass August 2018, hypothyroid who presented to [facility] in the setting of acute dyspnea and [...] motion abnormalities as above - Admit ProBNP >52803, repeat level the same - [place] to be approaching euvolemia with improved symptom [...] with Dr. Terrazas. REAGAN Barone 01/15/2019 Pager [phone] Cardiology Staff Addendum Patient Name: Pretty Harmon Patient Admit Date: 01/07/2019 I interviewed and examined the patient during comprehensive bedside rounds. I concur with the summary of interval events, active hospital-focused problem list and plan of care outlined in Ms. Lechuga's note dated 01/15/2019. I personally reviewed the [...] begin heading down again. Otherwise as per Ankush. 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 STUDIES: Labs: CBC: Recent Labs 01/14/19 03401/13/19 0456 01/12/19 0544 WBC 12.8* 12.2* 11.8* HGB 11.8 11.8 12.3 PLATELET 285 299 307 Chemistry: Recent Labs 01/14/1934101/13/19 0456 01/12/19 0544 01/08/19 0004 01/07/19 2159 [...] this interval not displayed. Recent Labs 01/14/19 03401/13/19 0456 01/12/19 0544 01/10/19 1810 01/09/19 1906 [...] changed to torsemide 20 mg q daily. Pcwpsorvxqug-tqsuwpdfzsxn-wwygvoabr to congestive heart failure. Potassium today is [...] Progress Note Patient Name: Pretty Harmon Service: ACTIVITIES ASSISTANT / PA Responsible Attending: Thomas Terrazas II, [...] 60-70s, sinus rhythm Meds: Scheduled Meds: ??? [MAR Hold] hydrALAZINE 25 mg Oral TID ??? [JUN Hold] cloNIDine 0.1 mg Oral BID ??? [JUN [...] 10 mg Oral Daily Continuous Infusions: PRN Meds:[JUN Hold] bisacodyl, [JUN Hold] alum-mag hydroxide-simeth, [JUN Hold] sodium chloride 0.9 % (flush), [JUN Hold] lidocaine, [JUN Hold] nitroGLYcerin, [JUN Hold] acetaminophen Physical Exam: Vital Signs: Last value [...] and very lipscomb. Lab Comments: Recent Labs 01/14/19 03401/13/19 0456 01/12/19 0544 WBC 12.8* 12.2* 11.8* HGB 11.8 11.8 12.3 HCT 33.4* 34.2* 34.8* PLATELET 285 299 307 No results for input(s): INR in the last 168 hours. Recent Labs 01/14/19 0342 01/13/19 0456 01/12/19 0544 NA 126* 125* 127* K [...] bypass August 2018, hypothyroid who presented to [facility] in the setting of acute dyspnea and [...] motion abnormalities as above - Admit ProBNP >38777, repeat level the same - [place] to be approaching euvolemia with improved symptom [...] CODE Discussed with REAGAN Bear 01/14/2019 Pager [phone] CARDIOLOGY ATTENDING NOTE Patient: Pretty Harmon Date [...] of two midnights or is on the [facility] inpatient only procedure list (status C) due [...] Rashaun Gates MD, MPH Cardiovascular Medicine Laura Seay, TAMI - 01/14/2019 10:30 AM EDT Nutrition Progress [...] Diagnosis Date ??? AAA (abdominal aortic aneurysm) [id number] angiogram; 3.2 cm infrarenal ??? Constipation ??? [...] encounter: 35.8 kg (78 lb 14.8 oz). [place] Body Weight (IBW): Female patients must weigh at least 45.5 kg to calculate ideal body weight Pt with previous weight loss ARTIST AND REPERTOIRE MANAGER and notes adherence to low sodium diet ARTIST AND REPERTOIRE MANAGER for fluid management of CHF Lab Results [...] normal. STUDIES: Labs: CBC: Recent Labs 01/13/19 0456 01/12/19 0544 01/11/19 0455 WBC 12.2* 11.8* 11.2* HGB 11.8 12.3 11.2* PLATELET 299 307 286 Chemistry: Recent Labs 01/13/19 0456 01/12/19 0544 01/11/19 0455 01/08/19 0004 01/07/19 2159 01/04/19 1252 NA 125* 127* 125* < > [...] this interval not displayed. Recent Labs 01/13/19 0456 01/12/19 0544 01/11/19 [...] changed to torsemide 20 mg q daily. Uefunlehuesc-xyqqgmkxtjxp-cwvlniasr to congestive heart failure. Potassium today is [...] with you Seen and discussed with Dr. iVvek Negron MD 01/13/2019 Renal Attending: The patient was examined together with the renal fellow and I agree with the above note which accurately reflects our findings and assessment Thomas Terrazas II, MD - 01/13/2019 8:56 AM EDT Images from the original note were not included. Inpatient Cardiology Progress Note Patient Name: Pretty Harmon Service: ACTIVITIES ASSISTANT / PA Responsible Attending: Thomas Terrazas II, [...] and vitals reviewed. Lab Comments: Recent Labs 01/13/1945501/12/19 0544 01/11/19 0455 WBC 12.2* 11.8* 11.2* HGB 11.8 12.3 11.2* HCT 34.2* 34.8* 32.7* PLATELET 299 307 286 No results for input(s): INR in the last 168 hours. Recent Labs 01/13/1945501/12/19 0544 01/11/19 0455 NA 125* 127* 125* [...] bypass August 2018, hypothyroid who presented to [facility] in the setting of acute dyspnea and [...] motion abnormalities as above - Admit ProBNP >40893, repeat level the same - [place] to be approaching euvolemia with improved symptom [...] MD Hiwot Hines II, PA 01/13/2019 Pager [phone] 01/13/2019 Cardiology Staff Addendum Patient Name: Pretty [...] options for revascularization. Otherwise as per Ms. Ankush. I am a credentialed closing machine operator at [facility] and I am currently the attending of record for the patient's admission. I certify that this patient meets or has met the criteria for inpatient treatment for their acute condition meeting a minimum of two midnights. Thomas Terrazas MD Thomas Terrazas II, MD - 01/12/2019 10:54 AM EDT Inpatient Cardiology Progress Note Patient Name: Pretty Harmon Service: ACTIVITIES ASSISTANT / PA Responsible Attending: Thomas Terrazas II, [...] an adequate response to 1 dose of mg. Nuclear stress test was negative for [...] and vitals reviewed. Lab Comments: Recent Labs 01/12/19 0544 01/11/19 0455 01/10/19 0051 WBC 11.8* 11.2* 11.5* HGB 12.3 11.2* 10.6* HCT 34.8* 32.7* 31.2* PLATELET 307 286 281 No results for input(s): INR in the last 168 hours. Recent Labs 01/12/19 0544 01/11/19 0455 01/10/19 1810 01/10/19 0051 NA 127* 125* 127* 131* K 3.3* 4.0 4.3 3.6 CL 79* 84* 86* 89* CO2 27 26 24 25 BUN 64* 58* -- 61* CREATININE 3.46* 3.01* -- 3.23* Recent Labs 01/07/19 2159 AST Not Perf ALT 33* ALKPHOS 118* BILITOT 0.7 BILIDIR Not Perf Recent Labs 01/12/19 0544 01/11/19 0455 01/10/19 1810 01/10/19 0051 01/09/19 1906 01/09/19 0234 CALCIUM 9.7 [...] bypass August 2018, hypothyroid who presented to [facility] in the setting of acute dyspnea and [...] motion abnormalities as above - Admit ProBNP >72688, repeat level the same - [place] to be approaching euvolemia with improved symptom [...] possible at this point. Otherwise as per Ms. Ruano. 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 STUDIES: Labs: CBC: Recent Labs 01/12/1954301/11/195 01/10/19 0051 WBC 11.8* 11.2* 11.5* HGB 12.3 11.2* 10.6* PLATELET 307 286 281 Chemistry: Recent Labs 01/12/1954301/11/195 01/10/19180901/10/19 0051 01/08/19 0004 01/07/19215801/04/19 1252 NA 127* 125* 127* 131* < [...] in this interval not displayed. Recent Labs 01/12/1954301/11/1945401/10/19180901/10/19 0051 01/09/19 1906 01/09/19 0234 01/04/19 1252 [...] changed to torsemide 60 mg q daily. Rcqvmudoujth-aecwaffeuwnx-aovelwgtk to congestive heart failure. Potassium today is [...] grossly normal. STUDIES: Labs: CBC: Recent Labs 01/11/1945401/10/195001/09/19233 WBC 11.2* 11.5* 12.4* HGB 11.2* 10.6* 10.6* PLATELET 286 281 271 Chemistry: Recent Labs 01/11/1945401/10/19180901/10/195001/09/19 0234 01/08/19 0004 01/07/19 2159 01/04/19 1252 [...] in this interval not displayed. Recent Labs 01/11/1945401/10/19180901/10/195001/09/19 1906 01/09/19 0234 01/04/19 1252 11/09/18 1226 [...] been adjusted recently. Continue PRN labetalol IV. Dbjcjxisgixd-jkndqkhyvaie-nuxvmdils to congestive heart failure. Potassium today is 4. Bone mineral metabolic syndrome-calcium is 9.1 No recent phos levels. Anemia- s/p iron infusion on on 01/07/19 Thank you for the consult will follow the patient with you Seen and discussed with Dr. Vivek Negron MD 01/11/2019 Renal Attending: The patient was examined together with the renal fellow and I agree with the above note which accurately reflects our findings and assessment rGeyson Jolly MD - 01/11/2019 9:37 AM EDT Inpatient Cardiology Progress Note Patient Name: Pretty Harmon Service: ACTIVITIES ASSISTANT / PA Responsible Attending: Greyson Jolly MD [...] and vitals reviewed. Lab Comments: Recent Labs 01/11/19 0455 01/10/19 0051 01/09/19 0234 WBC 11.2* 11.5* 12.4* HGB 11.2* 10.6* 10.6* HCT 32.7* 31.2* 30.9* PLATELET 286 281 271 No results for input(s): INR in the last 168 hours. Recent Labs 01/11/19 0455 01/10/19 1810 01/10/19 0051 01/09/19 0234 NA 125* 127* 131* < [...] bypass August 2018, hypothyroid who presented to [facility] in the setting of acute dyspnea and [...] motion abnormalities as above - Admit ProBNP >82004, repeat the same - [place] to be approaching euvolemia with improved symptom management - Transition to oral diuretics today, will start this afternoon - Close monitoring of renal function, nephrology consulted - [facility] lab panel pending - Consider HF team [...] - Await nuclear stress test, planned for 9/17 ?? CKD IV-V YING s/p Renal artery [...] labetalol for better control of hypertension. 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 Small frequent meals--calorically dense--discussed with patient ?? Pt reports adherence to low sodium diet ARTIST AND REPERTOIRE MANAGER ?? Consider appetite stimulant Patient Active Problem [...] Diagnosis Date ??? AAA (abdominal aortic aneurysm) [id number] angiogram; 3.2 cm infrarenal ??? Constipation ??? [...] encounter: 36.5 kg (80 lb 7.5 oz). [place] Body Weight (IBW): Female patients must weigh at least 45.5 kg to calculate ideal body weight Pt with previous weight loss ARTIST AND REPERTOIRE MANAGER and notes adherence to low sodium diet ARTIST AND REPERTOIRE MANAGER for fluid management of CHF Lab Results [...] Progress Note Patient Name: Pretty Harmon Service: ACTIVITIES ASSISTANT / PA Responsible Attending: Greyson Jolly MD [...] mood and affect. Lab Comments: Recent Labs 01/10/19 00501/09/19 0234 01/08/19 1002 WBC 11.5* 12.4* 10.0* HGB 10.6* 10.6* 11.6* HCT 31.2* 30.9* 34.9* PLATELET 281 271 271 No results for input(s): INR in the last 168 hours. Recent Labs 01/10/19 00501/09/19 1906 01/09/19 0234 01/08/19 0004 NA 131* 128* 130* [...] bypass August 2018, hypothyroid who presented to [facility] in the setting of acute dyspnea and [...] motion abnormalities as above - Admit ProBNP >23744, repeat pending - Continue lasix 20 mg/hr [...] MD Whitney Atkinson APRN Cardiovascular Medicine Pager [phone] 01/10/2019 STAFF ADDENDUM Patient interviewed and examined. [...] Progress Note Patient Name: Pretty Harmon Service: ACTIVITIES ASSISTANT / PA Responsible Attending: Greyson Jolly MD [...] 01/09/2019 1057 Gross per 24 hour Intake 2029.11 ml Output 2050 ml Net -20.89 ml [...] mood and affect. Lab Comments: Recent Labs 01/09/19 0234 01/08/19 1002 01/07/19 2159 WBC 12.4* 10.0* 9.3 HGB 10.6* 11.6* [...] Labs 01/09/19 0234 01/08/19 1251 01/08/19 0004 01/07/19215801/04/19 1252 CALCIUM 8.9 -- 9.5 9.4 9.7 MAGNESIUM [...] bypass August 2018, hypothyroid who presented to [facility] in the setting of acute dyspnea and [...] wall motion abnormalities as above - ProBNP >85813 - Given 200 mg IVP lasix yesterday [...] MD Whitney Atkinson APRN Cardiovascular Medicine Pager [phone] 01/09/2019 STAFF ADDENDUM Patient interviewed and examined. [...] more diuresis. I agree with letting her castings drafter know she is hospitalized and why. Whitney Kaplan APRN - 01/08/2019 1:39 PM EDT Inpatient Cardiology Progress Note Patient Name: Pretty Harmon Service: ACTIVITIES ASSISTANT / PA Responsible Attending: Greyson Jolly MD [...] of new onset dyspnea. ProBNP elevated at >20480. Echocardiogram done this morning with newly reduced [...] mood and affect. Lab Comments: Recent Labs 01/08/19100101/07/19215801/04/19 1252 WBC 10.0* 9.3 10.2* HGB 11.6* 12.6 11.2* HCT 34.9* 37.0 32.4* PLATELET 271 267 249 No results for input(s): INR in the last 168 hours. Recent Labs 01/08/19 0004 01/07/19215801/04/19 1252 NA 131* 131* 133* K 4.2 Not Perf 3.6 CL 93* 92* 95* CO2 20* 18* 21* BUN 59* 61* 44* CREATININE 3.42* 3.68* 3.11* Recent Labs 01/07/192158 AST Not Perf ALT 33* ALKPHOS 118* BILITOT 0.7 BILIDIR Not Perf Recent Labs 01/08/19 0004 01/07/19215801/04/19 1252 CALCIUM 9.5 9.4 9.7 PHOS -- [...] bypass August 2018, hypothyroid who presented to [facility] in the setting of acute dyspnea and [...] wall motion abnormalities as above - ProBNP >25341 - IVP lasix 40 mg x2, initiate [...] to be previously elevated in September to 83 - Continue with levothyroxine 50 mcg ?? Diet: Renal diet, + Nepro, 2 grm sodium limitation with 1500 ml fluid restriction ?? DVT prophylaxis:heparin drip Discussed with MD Whitney Atkinson [facility] Cardiovascular Medicine Pager [phone] 01/08/2019 documented in this encounter H&P Notes [...] cleared with theraphy who was transferred from [facility] to [facility] ED for evaluation of suspected AAA rupture. The patient presented to the [facility] ED yesterday with c/o progressively worsening SOB [...] health/low tin diet. After she saw her Assistant Boiler Operator, she stated that BP readings have been [...] orthopnea, pnd, leg swelling, calf tenderness. In [facility] ED, her BP: 180's/100's, HR: 70, Spo2: low 90s on 3L NC. On exam Presenting EKG showed NSR, LVH voltage criteria and STD on inferolateral leads but unchanged from September 2018. A non-con CT chest/abdomen done at [facility] that showed Asc aor 3.5cm, abd aneurysm [...] Diagnosis Date ??? AAA (abdominal aortic aneurysm) [id number] angiogram; 3.2 cm infrarenal ??? Constipation ??? Dyslipidemia ??? Hypertension ??? Insomnia ??? Peripheral vascular disease ??? Renal artery stenosis R; per 2009 angiogram Previous Diagnostics: TTE (08/30/2018) 1. Mild [...] (WRVU 6.99) performedby Greyson Chen MD at [facility] MAIN OR ??? PRO UPPER GI ENDOSCOPY, DIAGNOSTIC 01/20/2014 EGD, UPPER GI ENDOSCOPY performed by Corby Cano MD at [facility] ENDOSCOPY ??? PRO UPPER GI ENDOSCOPY, DIAGNOSTIC N/A 07/28/2017 EGD, UPPER GI ENDOSCOPY performed by Snow Liao MD at [facility] ENDOSCOPY ??? PRO VEIN BYPASS GRAFT, AORTOILIOFEMORAL N/A 09/07/2018 @BYPASS GRAFT, AORTOILIAC W\ VEIN CONDUIT (WRVU 41.88) performed by Unique Moody MD at [facility] MAIN OR Significant Family History: Family History [...] ~45 years up to 1 ppd at [place], quit ~1999 Substance and Sexual Activity ??? [...] file Gets together: Not on file Attends congregational service: Not on file Active member of [...] Rodolfo of 50 years. 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 No history of heavy etoh [...] Pulses palpable,2+ UE/LE b/l. no calf tenderness Neuro/SWIM INSTRUCTOR: AAO x 3, No evident deficits Skin/Integumentary: No rash Diagnostics: EKG: NSR, STD (down sloping) in the inferolateral leads. LVH voltage criteria. Unchanged compared tothe EKG in October 2018. Chest/Abd CT without contrast at [facility] Interstitial pulmonary edema with bilateral pleural effusion. [...] bypass on 08/2018,hypothyroidism, who was transferred from [facility] to [facility] ED [...] 4 mg/DL, MG greater than 2 mg/DL. [place] Formal TTE a.m. NSTEMI: Most likely type [...] infusion this afternoon that was ordered by castings drafter. Currently, patient is pain- free. She reported [...] Diagnosis Date ??? AAA (abdominal aortic aneurysm) [id number] angiogram; 3.2 cm infrarenal ??? Constipation ??? [...] 324 mg (324 mg Oral Given 01/07/19 5552) Assessment and Plan: 68 y.o. female with history of AAA, CKD, hypertension, PVD who presents with episode of acute onset upper abdominal/chest pain with associated shortness of breath. Patient hypertensive and hypoxemic, but overall stable. Physical exam overall unremarkable with no significant abdominal tenderness and peripheral pulses were intact upper and lower extremities bilaterally. Xyhbu-me-hokq ultrasound showed presence of AAA without evidence of obvious rupture. Ybntd-aw-zgsl echo showed severely reduced EF and concern [...] Assessment: as above. 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 A letter describing our affiliations was reviewed with them and theywere educated about their right to choose where referrals are placed. Patient requests referral to :: [facility] Expected date of discharge: :: next 24-48 hours. Referral routed to the Heat Treater Head for matching with agency/vendor and to provide [...] (Interventions Implemented as Appropriate) 01/16/19 0820 01/16/19 1803 Coping/Psychosocial Plan Of Care Reviewed With patient [...] Operative Note Patient Name: Pretty Harmon : [id number] MR#: [id number] Case Date: 01/14/2019 Surgeon: Surgeon(s) and Role: [...] for further details. REAGAN FRANCO 01/14/2019 Pager [phone] Plan of Care - Madysno Trevizo RN - 01/14/2019 6:19 AM EDT [...] Discharge Facility/Level Of Care Needs adult foster care/longterm -- -- Discharge Disposition -- -- still [...] services;advanced practice nurse;nursing;patient;pharmacy;physician Care Management - Jesus Isaac, RN - 01/12/2019 1:56 PM EDT IDR [...] -- OUTCOME EVALUATION NOTE: OUTCOME SUMMARY: Pretty Harmon [...] Ongoing Goal: Fall Prevention-Safe Patient Handling 01/08/19 16301/11/19 0801/11/19 1200 Activity Activity Type -- activity adjusted [...] safety round/check completed Goal: Infection Control 01/11/19 08 Safety Interventions Isolation Precautions standard precautions maintained Infection Prevention single patient room provided;personal protective equipment utilized;environmental surveillance performed Coping Strategies Supportive Measures active listening utilized;relaxation techniques promoted Goal: Discharge Needs Assessment 01/08/19 1633 01/08/19 16301/11/19 1551 Discharge Needs Assessment Concerns To Be Addressed -- no discharge needs identified -- Readmission Within The Last 30 Days no previous admission in last 30 days -- -- Equipment Needed After Discharge none -- -- Discharge Facility/Level Of Care Needs adult foster care/longterm -- -- Discharge Disposition -- -- still [...] 1810 01/10/19 0051 01/09/19 1906 01/09/19 0234 09/14/19 0004 NA 127* 131* 128* 130* < [...] Diagnosis Date ??? AAA (abdominal aortic aneurysm) [id number] angiogram; 3.2 cm infrarenal ??? Constipation ??? [...] Health/Prescription Coverage: Primary Insurance: MEDICARE Secondary Insurance: [employer] [place] Prescription Coverage: yes Preferred Pharmacy: [facility] [place] Primary Care Provider: Sanjuanita Lee MD [phone] Patient/Caregiver Goals of Treatment: to return home [...] of care planning. Jesus Isaac RN Pager: [phone] Consult Note - Mainor Doyle MD - [...] Diagnosis Date ??? AAA (abdominal aortic aneurysm) [id number] angiogram; 3.2 cm infrarenal ??? Constipation ??? Dyslipidemia ??? Hypertension ??? Insomnia ??? Peripheral vascular disease ??? Renal artery stenosis R; per 2009 angiogram Past Surgical History: Procedure Laterality Date ??? HYSTERECTOMY ? ? PRO CATHETER 1ST ORDER W/WO ART PUNCT/FLUORO/S&I BILATERAL Bilateral 09/01/[address] (FIRST-ORDER), MAIN RENAL ART & ANY ACC, W/S&I; ANDREY (WRVU 6.99) performedby Greyson Chen MD at [facility] MAIN OR ??? PRO UPPER GI ENDOSCOPY, DIAGNOSTIC 01/20/2014 EGD, UPPER GI ENDOSCOPY performed by Corby Cano MD at [facility] ENDOSCOPY ??? PRO UPPER GI ENDOSCOPY, DIAGNOSTIC N/A 07/28/2017 EGD, UPPER GI ENDOSCOPY performed by Snow Liao MD at [facility] ENDOSCOPY ??? PRO VEIN BYPASS GRAFT, AORTOILIOFEMORAL N/A 09/07/2018 @BYPASS GRAFT, AORTOILIAC W\ VEIN CONDUIT (WRVU 41.88) performed by Unique Moody MD at [facility] MAIN OR Family History Problem Relation Age of Onset ??? Hypertension Mother ??? Cervical Cancer Mother ??? Chronic Obstructive Pulmonary Disease Father ??? Hypertension Sister Social History Social History Narrative , lives with Rodolfo of 50 years. 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 No history of heavy etoh [...] No asterixis. STUDIES: Labs: CBC: Recent Labs 01/10/195001/09/1923301/08/19 1002 WBC 11.5* 12.4* 10.0* HGB 10.6* 10.6* 11.6* PLATELET 281 271 271 Chemistry: Recent Labs 01/10/195001/09/19190501/09/1923301/08/19 0004 01/07/19 2159 01/04/19 1252 NA 131* [...] in this interval not displayed. Recent Labs 01/10/195001/09/19190501/09/1923301/08/19 1251 01/08/19 0004 01/04/19 1252 11/09/18 1226 [...] been adjusted recently. Continue PRN labetalol IV. Hahonqfqgbsi-mrfrkadpeoee-ctocuysjg to congestive heart failure. Potassium today is [...] Care Overview Goal: Plan of Care Review 01/08/19163301/08/191999 Coping/Psychosocial Plan Of Care Reviewed With -- patient Plan of Care Review Progress no change -- OUTCOME EVALUATION NOTE: OUTCOME SUMMARY: Pt A&Ox4. Heparin drip and lasix drip maintained per protocol. Pt remained hypertensive overnight SBP 170s-200s, pt asymptomatic. MD Melissa aware. 80mg IV lasix bolus given. PVR [...] Ongoing assessment Goal: Fall Prevention-Safe Patient Handling 01/08/19163301/08/19199901/09/19 0400 Activity Activity Type -- activity adjusted [...] Review Outcome: Ongoing (Interventions Implemented as Appropriate) 01/08/19 1634 Coping/Psychosocial Plan Of Care Reviewed With patient [...] Ongoing (Interventions Implemented as Appropriate) 01/08/19 1100 01/08/19 1634 Activity Activity Type -- activity adjusted per [...] Control Outcome: Ongoing (Interventions Implemented as Appropriate) 01/08/19 1634 Safety Interventions Isolation Precautions standard precautions maintained Infection Prevention environmental surveillance performed;single patient room provided;rest/sleep promoted Coping Strategies Supportive Measures active listening utilized;goal setting facilitated;decision- making supported Goal: Discharge Needs Assessment Outcome: Ongoing (Interventions Implemented as Appropriate) 01/08/19 1633 01/08/19 1634 Discharge Needs Assessment Concerns To Be Addressed -- no discharge needs identified Readmission Within The Last 30 Days no previous admission in last 30 days -- Equipment Needed After Discharge none -- Discharge Facility/Level Of Care Needs adult foster care/longterm -- Current Health Anticipated Changes Related to [...] 2018 Height in inches 5' 0 Weight (Togolese) 99 lbs Weight (Metric) 44.9 kg BMI (Calculated) 19.33 Vitals 09/06/2018 Height in inches 5' 0.984 Weight (Togolese) 94 lbs 9 oz Weight (Metric) 42.9 kg BMI (Calculated) 17.88 Vitals 08/27/2017 Height in inches 5' 0 Weight (Togolese) 108 lbs Weight (Metric) 49 kg BMI (Calculated) 21.09 Evaluation: 68 yo F with PMH of AAA, HTN, CKD V, b/l YING s/p renal artery bypass on 08/2018, hypothyroidism and chronic resolved hepatitis B cleared with theraphy who was transferred from [facility] to [facility] ED [...] Diagnosis Date ??? AAA (abdominal aortic aneurysm) [id number] angiogram; 3.2 cm infrarenal ??? Constipation ??? [...] (WRVU 6.99) performedby Greyson Chen MD at [facility] MAIN OR ??? PRO UPPER GI ENDOSCOPY, DIAGNOSTIC 01/20/2014 EGD, UPPER GI ENDOSCOPY performed by Corby Cano MD at [facility] ENDOSCOPY ??? PRO UPPER GI ENDOSCOPY, DIAGNOSTIC N/A 07/28/2017 EGD, UPPER GI ENDOSCOPY performed by Snow Liao MD at [facility] ENDOSCOPY ??? PRO VEIN BYPASS GRAFT, AORTOILIOFEMORAL N/A 09/07/2018 @BYPASS GRAFT, AORTOILIAC W\ VEIN CONDUIT (WRVU 41.88) performed by Unique Moody MD at [facility] MAIN OR Social History Social History Socioeconomic [...] ~45 years up to 1 ppd at [place], quit ~1999 Substance and Sexual Activity ??? [...] file Gets together: Not on file Attends congregational service: Not on file Active member of [...] Rodolfo of 50 years. 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 No history of heavy etoh [...] Hao Domínguez MD Vascular Surgery Fellow Pager [phone] 01/07/2019 10:44 PM CC: Shortness of breath. [...] 01/07/2019 9:11 PM EDT Pt presents from [facility] w/ question of AAA rupture, her AAA [...] Component Value Ref Test Analysis Performed At [facility] Range Method Time Signature VB Text Department: Vascular Surgery Lab VASCUBASE Report Patient: [id number] (PRETTY HARMON) CPT: 05951 ICD10: I71.4 Referring Physician: GREYSON JOLLY ?? [...] Jolly MD VASCULAR ORDERABLES Performing Organization Address City/[facility]/ZIP Code Phon e Number VASCUBASE EKG 12 [...] 443 ms MUSE SYSTEM (Bezet) Calculated P [place] 66 degrees MUSE SYSTEM Calculated R [place] -2 degrees MUSE SYSTEM Calculated T [place] 36 degrees MUSE SYSTEM INTERPRETATION Normal sinus rhythm MUSE SYSTEM Biatrial enlargement Left ventricular hypertrophy with repolarization abnormality Abnormal ECG When compared with ECG of 19-JAN-2019 07:11, No significant change was found Confirmed by MD PHYLLIS, KENY ([id number]) on 01/20/2019 7:30:43 AM Specimen Anatomical Collection Method Collection Time Receive d Time (Source) Location / / Volume Laterality 01/20/2019 7:10 AM 9 7:30 EDT AM EDT Whitney Kaplan APRN ECG ORDERABLES Performing Organization Address City/[facility] Phon e Number MUSE SYSTEM (ABNORMAL) Differential, Automated (01/20/2019 4:29 AM EDT) P athologist Signature Neutrophils % 56.6 % [facility] Neutr Abs (ANC) 3.99 1.70 - [facility] 6.10 [facility] x10(3)/[facility] LABORATORY Lymphocytes % 23.5 % [facility] Lymphocytes Abs 1.7 0.9 - 3.2 [facility] x10(3)/[facility] LABORATORY Monocytes % 11.9 % [facility] Monocyte Abs 0.8 0.3 - 0.9 [facility] x10(3)/[facility] LABORATORY Eosinophils % 6.4 % [facility] Eosinophils Abs 0.4 0.0 - 0.4 [facility] x10(3)/[facility] LABORATORY Basophils % 0.9 % [facility] Basophils Abs 0.1 0.0 - 0.1 [facility] x10(3)/[facility] LABORATORY Immature Gran % 0.70 % [facility] Comment: Immature granulocytes(IG's)percentage an d absolute count will include metamyelocytes, myelocytes, and promyelo cytes. Blood smears from CBCs yielding IG's will be scanned manually for concor dance. If this scan disagrees with the automated IG or if promyelocytes are not ed, a manual differential will be performed. Blanca Gran Abs 0.05 (H) 0.00 - 0.04 x10(3)/[facility] LABORATORY Specimen Anatomical Collection Method Collection Time Receive d Time (Source) Location / / Volume Laterality Blood specimen 01/20/2019 4:29 AM 019 4:40 (specimen) EDT AM EDT Resulting Agency Comment Spec In Lab [facility] HEMATOLOGY ORDERABLES Performing Organization Address City/State/[place] [address] (ABNORMAL) Hemogram (01/20/2019 4:29 AM EDT) Analysis Performed At Patho logist Time Signature WBC 7.0 4.0 - 9.5 [facility] x10(3)/[facility] LABORATORY RBC 4.10 4.00 - ZAKIA VICENTE 5.21 [facility] x10(6)/[facility] LABORATORY Hemoglobin 12.7 11.7 - [facility] g[facility]dL [facility] Hematocrit 36.8 35.7 - [facility] VICENTE 45.8 % [facility] MCV 89.8 82.6 - [facility] 94.4 fL [facility] MCH 31.0 27.1 - [facility]IA VICENTE 32.0 pg [facility] MCHC 34.5 31.7 - [facility] 35.0 gm/dL [facility] Platelets 271 145 - 357 [facility] x10(3)/[facility] LABORATORY RDWSD 49.2 (H) 37.0 - ZAKIA ZHANG 46.0 [facility] RDWCV 15.6 (H) 11.5 - [facility] 14.1 % [facility] MPV 12.1 7.6 - 12.9 ZAKIA ZHANG [facility] nRBC % Auto 0.0 % [facility] nRBC Abs Auto 0.000 0.000 - [place]IA DELGADOCOCK 0.000 [facility] x10(3)/[facility] LABORATORY Specimen Anatomical Collection Method Collection Time Receive d Time (Source) Location / / Volume Laterality Blood specimen 01/20/2019 4:29 AM 019 4:40 (specimen) EDT AM EDT Resulting Agency Comment Spec In Lab [facility] HEMATOLOGY ORDERABLES Performing Organization Address City/[facility]/ZIP Code Phon e Number [address] Magnesium (01/20/2019 4:29 AM EDT) P athologist Signature Magnesium 1.01 0.69 - 1.07 [facility] mmol/L [facility] Specimen Anatomical Collection Method Collection Time Receive d Time (Source) Location / / Volume Laterality Blood specimen 01/20/2019 4:29 AM 019 4:40 (specimen) EDT AM EDT Resulting Agency Comment Spec In Lab Thomas Terrazas II, MD CHEMISTRY ORDERABLES Performing Organization Address City/[facility]/ZIP Code Phon e Number [address] (ABNORMAL) BMP w/fasting Glucose (01/20/2019 4:29 AM EDT) P athologist Signature Glucose 97 65 - 99 [facility] Fasting mg/dL [facility] Comment: ?Fasting* Glucose Interpretive C riteria [...] of Diabetes Mellitus, Position Statement from the [place] [employer]. ??Diabete s Care, Volume 33, Supplement 1, Apr 2009 BUN 74 (H) 8 - 18 mg/dL [facility] Creatinine 3.02 (H) 0.70 - 1.20 mg/dL [facility] Sodium 125 (L) 135 - 145 mmol/L [facility] Potassium 4.0 3.5 - 5.0 mmol/L [facility] Comment: Please note: ??Patients with WBC >100,00 0 may have falsely elevated Potassium levels. ??For accurate Potassium quantif ication in these patients send serum separator tube (gold top) for subsequent determinations. ??Contact the Clinical Chemistry Laboratory if there are any qu estions. Chloride 83 (L) 98 - 107 mmol/L [facility] CO2 25 22 - 31 mmol/L [facility] Anion Gap 17 (H) 5 - 15 mmol/L [facility] Calcium 9.8 8.5 - 10.5 mg/dL [facility] Estimated GFR 15 (L) >=60 mL/min/1.73 m?? [facility] Comment: The eGFR was calculated using the CKD-EP I equation. As with all creatinine based estimates of kidney function, eGFR values calculated with the CKD-EPI equation are not accurate in patients wi th acute kidney failure, extremes of body mass or the acutely ill. [email or web address] eGFR 17 (L) >=60 mL/min/1.73 m?? [facility] Comment: The eGFR was calculated using the CKD-EP I equation. As with all creatinine based estimates of kidney function, eGFR values calculated with the CKD-EPI equation are not accurate in patients wi th acute kidney failure, extremes of body mass or the acutely ill. [email or web address] Specimen Anatomical Collection Method Collection Time Receive d Time (Source) Location / / Volume Laterality Blood specimen 01/20/2019 4:29 AM 019 4:40 (specimen) EDT AM EDT Resulting Agency Comment Spec In Lab Thomas Terrazas II, MD CHEMISTRY ORDERABLES Performing Organization Address City/[facility]/ZIP [facility] [place] [address] EKG 12 Lead (01/19/2019 7:11 AM EDT) Component Value Ref Range Test Analysis Performed Pathologis t Method Time At Signature Ventricular rate 62 BPM MUSE SYSTEM Atrial Rate 62 BPM MUSE SYSTEM P-R Interval 156 ms MUSE SYSTEM QRS Duration 94 ms MUSE SYSTEM Q-T Interval 428 ms MUSE SYSTEM QTC Calculated 434 ms MUSE SYSTEM (Bezet) Calculated P [place] 76 degrees MUSE SYSTEM Calculated R [place] 14 degrees MUSE SYSTEM Calculated T [place] 99 degrees MUSE SYSTEM INTERPRETATION Normal sinus rhythm MUSE SYSTEM Possible Left atrial enlargement Left ventricular hypertrophy ST & T wave abnormality, consider inferolateral ischemia Poor R-wave progression Abnormal ECG When compared with ECG of 18-JAN-2019 07:18, QT has shortened Confirmed by Ismael RODRIGES Brent ([id number]) on 01/19/2019 7:44:37 AM Specimen Anatomical Collection Method Collection Time Receive d Time (Source) Location / / Volume Laterality 01/19/2019 7:11 AM 9 7:44 EDT AM EDT Whitney Kaplan APRN ECG ORDERABLES Performing Organization Address [facility] Phon e Number MUSE SYSTEM (ABNORMAL) Differential, Automated (01/19/2019 5:18 AM EDT) Patholo gist Method Time Signature Neutrophils % 58.5 % [facility] Neutr Abs (ANC) 4.76 1.70 - [facility] 6.10 [facility] x10(3)/[facility] LABORATORY Lymphocytes % 17.5 % [facility] Lymphocytes Abs 1.4 0.9 - 3.2 [facility] x10(3)/[facility] LABORATORY Monocytes % 16.0 % [facility] Monocyte Abs 1.3 (H) 0.3 - 0.9 [facility] x10(3)/[facility] LABORATORY Eosinophils % 6.6 % [facility] Eosinophils Abs 0.5 (H) 0.0 - 0.4 [facility] x10(3)/[facility] LABORATORY Basophils % 1.0 % [facility] Basophils Abs 0.1 0.0 - 0.1 [facility] x10(3)/[facility] LABORATORY Immature Gran % 0.40 % [facility] Comment: Immature granulocytes(IG's)percentage an d absolute count will include metamyelocytes, myelocytes, and promyelo cytes. Blood smears from CBCs yielding IG's will be scanned manually for concor dance. If this scan disagrees with the automated IG or if promyelocytes are not ed, a manual differential will be performed. Blanca Gran Abs 0.03 0.00 - 0.04 x10(3)/[facility] LABORATORY Specimen Anatomical Collection Method Collection Time Receive d Time (Source) Location / / Volume Laterality Blood specimen 01/19/2019 5:18 AM 019 5:30 (specimen) EDT AM EDT Resulting Agency Comment Spec In Lab Hiwot KIRK HEMATOLOGY ORDERABLES Performing Organization Address City/State/ZIP Code Phon e Number [place] [id number] (ABNORMAL) Hemogram (01/19/2019 5:18 AM EDT) Analysis Performed At Patho logist Time Signature WBC 8.1 4.0 - 9.5 [facility] x10(3)/[facility] LABORATORY RBC 3.85 (L) 4.00 - [facility] 5.21 [facility] x10(6)/[facility] LABORATORY Hemoglobin 11.7 11.7 - [facility] 15.5 gm/dL [facility] Hematocrit 33.7 (L) 35.7 - [facility] 45.8 % [facility]AT[facility] MCV 87.5 82.6 - [facility] 94.4 fL [facility] MCH 30.4 27.1 - [facility] 32.0 pg [facility] MCHC 34.7 31.7 - [facility] 35.0 gm/dL [facility] Platelets 250 145 - 357 ZAKIA ZHANG x10(3)/[facility] LABORATORY RDWSD 48.6 (H) 37.0 - [facility]AK[facility] ZHANG 46.0 [facility] LABORATORY RDWCV 15.8 (H) 11.5 - [facility] ZHANG 14.1 % [facility] LABORATORY MPV 12.3 7.6 - 12.9 Z[facility]IA ZHANG [facility] LABORATORY nRBC % Auto 0.0 % [facility] nRBC Abs Auto 0.000 0.000 - [facility]AK[facility] ZHANG 0.000 [facility] x10(3)/[facility] LABORATORY Specimen Anatomical Collection Method Collection Time Receive d Time (Source) Location / / Volume Laterality Blood specimen 01/19/2019 5:18 AM 019 5:30 (specimen) EDT AM EDT Resulting Agency Comment Spec In Lab Hiwot KIRK HEMATOLOGY ORDERABLES Performing Organization Address City/[facility]/ZIP Code Phon e Number [address] Magnesium (01/19/2019 5:18 AM EDT) P athologist Signature Magnesium 0.98 0.69 - 1.07 [facility] mmol/L [facility] Specimen Anatomical Collection Method Collection Time Receive d Time (Source) Location / / Volume Laterality Blood specimen 01/19/2019 5:18 AM 019 5:30 (specimen) EDT AM EDT Resulting Agency Comment Spec In Lab Thomas Terrazas II, MD CHEMISTRY ORDERABLES Performing Organization Address City/[facility]/[place]IP [place] [address] (ABNORMAL) BMP w/fasting Glucose (01/19/2019 5:18 AM EDT) P athologist Signature Glucose 100 (H) 65 - 99 [facility] Fasting mg/dL [facility] Comment: ?Fasting* Glucose Interpretive C riteria [...] of Diabetes Mellitus, Position Statement from the [place] [employer]. ??Diabete s Care, Volume 33, Supplement 1, Apr 2009 BUN 77 (H) 8 - 18 mg/dL [facility]ORY Creatinine 3.33 (H) 0.70 - 1.20 mg/dL [facility] Sodium 124 (L) 135 - 145 mmol/L [facility] Potassium 4.3 3.5 - 5.0 mmol/L [facility] Comment: Please note: ??Patients with WBC >100,00 0 may have falsely elevated Potassium levels. ??For accurate Potassium quantif ication in these patients send serum separator tube (gold top) for subsequent determinations. ??Contact the Clinical Chemistry Laboratory if there are any qu estions. Chloride 84 (L) 98 - 107 mmol/L [facility] CO2 24 22 - 31 mmol/L [facility] Anion Gap 16 (H) 5 - 15 mmol/L [facility]ATORY Calcium 9.1 8.5 - 10.5 mg/dL [facility] Estimated GFR 13 (L) >=60 mL/min/1.73 m?? [facility] Comment: The eGFR was calculated using the CKD-EP I equation. As with all creatinine based estimates of kidney function, eGFR values calculated with the CKD-EPI equation are not accurate in patients wi th acute kidney failure, extremes of body mass or the acutely ill. [email or web address] eGFR 15 (L) >=60 mL/min/1.73 m?? [facility] Comment: The eGFR was calculated using the CKD-EP I equation. As with all creatinine based estimates of kidney function, eGFR values calculated with the CKD-EPI equation are not accurate in patients wi th acute kidney failure, extremes of body mass or the acutely ill. [email or web address] Specimen Anatomical Collection Method Collection Time Receive d Time (Source) Location / / Volume Laterality Blood specimen 01/19/2019 5:18 AM 019 5:30 (specimen) EDT AM EDT Resulting Agency Comment Spec In Lab Thomas Terrazas II, MD CHEMISTRY ORDERABLES Performing Organization Address City/State/[facility] [place] [address] MRI Cardiac Morph Func [...] please contact e number below. ? Narrative 01/18/2019 1:59 [...] previous infarct or resting myocardial ischemia. TI Medical Records Coordinator: TI Medical Records Coordinator demonstrates normal nulling seq uences. Delayed enhancement: [...] from the original. EXAMINATION: MRI CARDIAC MORPH FUN WWO CONTRAST CLINICAL HISTORY: new systolic heart [...] previous infarct or resting myocardial ischemia. TI Medical Records Coordinator: TI Medical Records Coordinator demonstrates normal nulling seq uences. Delayed enhancement: [...] please contact e number below. Greg Mercedes APRN IMG MRI ORDERABLES EKG 12 Lead (01/18/2019 7:18 AM EDT) Component Value Ref Range Test Analysis Performed Pathologis t Method Time At Signature Ventricular rate 62 BPM MUSE SYSTEM Atrial Rate 62 BPM MUSE SYSTEM P-R Interval 158 ms MUSE SYSTEM QRS Duration 98 ms MUSE SYSTEM Q-T Interval 488 ms MUSE SYSTEM QTC Calculated 495 ms MUSE SYSTEM (Bezet) Calculated P [place] 68 degrees MUSE SYSTEM Calculated R [place] 3 degrees MUSE SYSTEM Calculated T [place] -69 degrees MUSE SYSTEM INTERPRETATION Normal sinus [...] AM 9 3:31 EDT PM EDT Whitney Kaplan ADMINISTRATIVE SUPPORT SPECIALIST ECG ORDERABLES Performing Organization Address City/State/ZIP Code Phon e Number MUSE SYSTEM (ABNORMAL) Differential, Automated (01/18/2019 4:30 AM EDT) Patholo gist Method Time Signature Neutrophils % 58.3 % [facility] Neutr Abs (ANC) 4.38 1.70 - [facility] 6.10 [facility] x10(3)/[facility] LABORATORY Lymphocytes % 15.6 % [facility] Lymphocytes Abs 1.2 0.9 - 3.2 [facility] x10(3)/[facility] LABORATORY Monocytes % 18.9 % [facility] Monocyte Abs 1.4 (H) 0.3 - 0.9 [facility] x10(3)/[facility] LABORATORY Eosinophils % 5.9 % [facility] Eosinophils Abs 0.4 0.0 - 0.4 [facility] x10(3)/[facility] LABORATORY Basophils % 0.9 % [facility] Basophils Abs 0.1 0.0 - 0.1 [facility] x10(3)/[facility] LABORATORY Immature Gran % 0.40 % [facility] Comment: Immature granulocytes(IG's)percentage an d absolute count will include metamyelocytes, myelocytes, and promyelo cytes. Blood smears from CBCs yielding IG's will be scanned manually for concor dance. If this scan disagrees with the automated IG or if promyelocytes are not ed, a manual differential will be performed. Blanca Gran Abs 0.03 0.00 - 0.04 x10(3)/[facility] LABORATORY Specimen Anatomical Collection Method Collection Time Receive d Time (Source) Location / / Volume Laterality Blood specimen 01/18/2019 4:30 AM 019 4:57 (specimen) EDT AM EDT Resulting Agency Comment Spec In Lab Hiwot KIRK HEMATOLOGY ORDERABLES Performing Organization Address City/State/[place] [address] (ABNORMAL) Hemogram (01/18/2019 4:30 AM EDT) Analysis Performed At Patho logist Time Signature WBC 7.5 4.0 - 9.5 [facility] x10(3)/[facility] LABORATORY RBC 3.73 (L) 4.00 - [facility] 5.21 [facility] x10(6)/[facility] LABORATORY Hemoglobin 11.4 (L) 11.7 - [facility] 15.5 gm/dL [facility] LABOR[facility] Hematocrit 33.5 (L) 35.7 - [facility] 45.8 % [facility]ORAT[facility] MCV 89.8 82.6 - [facility] 94.4 [facility] LABORATORY MCH 30.6 27.1 - [facility] 32.0 pg [facility] MCHC 34.0 31.7 - [facility] 35.0 gm/dL [facility] Platelets 258 145 - 357 [facility] x10(3)/[facility] LABORATORY RDWSD 50.2 (H) 37.0 - [facility] 46.0 [facility] LABORATORY RDWCV 15.7 (H) 11.5 - [facility] 14.1 % [facility] LABORATORY MPV 11.8 7.6 - 12.9 ZAKIA ZHANG [facility] LABORATORY nRBC % Auto 0.0 % [facility] nRBC Abs Auto 0.000 0.000 - [facility]AK[facility] ZHANG 0.000 [facility] x10(3)/[facility] LABORATORY Specimen Anatomical Collection Method Collection Time Receive d Time (Source) Location / / Volume Laterality Blood specimen 01/18/2019 4:30 AM 019 4:57 (specimen) EDT AM EDT Resulting Agency Comment Spec In Lab Hiwot KIRK HEMATOLOGY ORDERABLES Performing Organization Address City/State/[place] [address] Magnesium (01/18/2019 4:30 AM EDT) P athologist Signature Magnesium 1.05 0.69 - 1.07 [facility] mmol/L [facility] Specimen Anatomical Collection Method Collection Time Receive d Time (Source) Location / / Volume Laterality Blood specimen 01/18/2019 4:30 AM 019 4:57 (specimen) EDT AM EDT Resulting Agency Comment Spec In Lab Thomas Terrazas II, MD CHEMISTRY ORDERABLES Performing Organization Address City/State/[place] [address] (ABNORMAL) BMP w/fasting Glucose (01/18/2019 4:30 AM EDT) P athologist Signature Glucose 103 (H) 65 - 99 [facility] Fasting mg/dL [facility] Comment: ?Fasting* Glucose Interpretive C riteria [...] of Diabetes Mellitus, Position Statement from the [place] [employer]. ??Diabete s Care, Volume 33, Supplement 1, Apr 2009 BUN 77 (H) 8 - 18 mg/dL [facility] Creatinine 3.65 (H) 0.70 - 1.20 mg/dL [facility] Sodium 120 (L) 135 - 145 mmol/L [facility] Potassium 3.3 (L) 3.5 - 5.0 mmol/L [facility] Comment: Please note: ??Patients with WBC >100,00 0 may have falsely elevated Potassium levels. ??For accurate Potassium quantif ication in these patients send serum separator tube (gold top) for subsequent determinations. ??Contact the Clinical Chemistry Laboratory if there are any qu estions. Chloride 77 (L) 98 - 107 mmol/L [facility] CO2 25 22 - 31 mmol/L [facility] Anion Gap 18 (H) 5 - 15 mmol/L [facility] LAB[facility]ATORY Calcium 9.1 8.5 - 10.5 mg/dL [facility] Estimated GFR 12 (L) >=60 mL/min/1.73 m?? [facility] Comment: The eGFR was calculated using the CKD-EP I equation. As with all creatinine based estimates of kidney function, eGFR values calculated with the CKD-EPI equation are not accurate in patients wi th acute kidney failure, extremes of body mass or the acutely ill. [email or web address] eGFR 14 (L) >=60 mL/min/1.73 m?? [facility] Comment: The eGFR was calculated using the CKD-EP I equation. As with all creatinine based estimates of kidney function, eGFR values calculated with the CKD-EPI equation are not accurate in patients wi th acute kidney failure, extremes of body mass or the acutely ill. [email or web address] Specimen Anatomical Collection Method Collection Time Receive d Time (Source) Location / / Volume Laterality Blood specimen 01/18/2019 4:30 AM 019 4:57 (specimen) EDT AM EDT Resulting Agency Comment Spec In Lab Thomas Terrazas II, MD CHEMISTRY ORDERABLES Performing Organization Address City/State/[place] [address] Duplex Study Renal Arteries, Bilat (01/17/2019 7:37 AM EDT) Component Value Ref Test Analysis Performed At [facility] Range Method Time Signature VB Text Department: Vascular Surgery Lab VASCUBASE Report Patient: [id number] (PRETTY HARMON) CPT: 87161 ICD10: I70.1 Referring Physician: GREG MERCEDES ?? [...] ? Patent: Patent Interpretation: Right: Patent distal [place] main renal artery with no eviden ce [...] Laterality 01/17/2019 7:37 AM EDT Greg Mercedes APRN VASCULAR ORDERABLES Performing Organization Address City/State/ZIP Code Phon e Number VASCUBASE (ABNORMAL) Differential, Automated (01/17/2019 3:54 AM EDT) [facility] gist Method Time Signature Neutrophils % 68.9 % [facility] Neutr Abs (ANC) 5.73 1.70 - [facility] 6.10 [facility] x10(3)/[facility] LABORATORY Lymphocytes % 11.1 % [facility] Lymphocytes Abs 0.9 0.9 - 3.2 [facility] x10(3)/[facility] LABORATORY Monocytes % 16.0 % [facility] Monocyte Abs 1.3 (H) 0.3 - 0.9 [facility] x10(3)/[facility] LABORATORY Eosinophils % 2.9 % [facility] Eosinophils Abs 0.2 0.0 - 0.4 [facility] x10(3)/[facility] LABORATORY Basophils % 0.6 % [facility] Basophils Abs 0.0 0.0 - 0.1 [facility] x10(3)/[facility] LABORATORY Immature Gran % 0.50 % [facility] Comment: Immature granulocytes(IG's)percentage an d absolute count will include metamyelocytes, myelocytes, and promyelo cytes. Blood smears from CBCs yielding IG's will be scanned manually for concvenu dandorie. If this scan disagrees with the automated IG or if promyelocytes are not ed, a manual differential will be performed. Blanca Gran Abs 0.04 0.00 - 0.04 x10(3)/[facility] LABORATORY Specimen Anatomical Collection Method Collection Time Receive d Time (Source) Location / / Volume Laterality Blood specimen 01/17/2019 3:54 AM 019 4:13 (specimen) EDT AM EDT Resulting Agency Comment Spec In Lab Hiwot KIRK HEMATOLOGY ORDERABLES Performing Organization Address City/State/[place] [address] (ABNORMAL) Hemogram (01/17/2019 3:54 AM EDT) Analysis Performed At Patho logist Time Signature WBC 8.3 4.0 - 9.5 [facility] x10(3)/[facility] LABORATORY RBC 3.64 (L) 4.00 - [facility] 5.21 [facility] x10(6)/[facility] Hemoglobin 11.4 (L) 11.7 - [facility] 15.5 gm/dL [facility] Hematocrit 32.0 (L) 35.7 - [facility] 45.8 % [facility] LABORAT[facility] MCV 87.9 82.6 - [facility] 94.4 [facility] LABORATORY MCH 31.3 27.1 - [facility] 32.0 pg [facility] MCHC 35.6 (H) 31.7 - [facility] 35.0 gm/dL [facility] LABOR[facility] Platelets 243 145 - 357 [facility] x10(3)/[facility] RDWSD 49.1 (H) 37.0 - [facility] 46.0 [facility] RDWCV 15.8 (H) 11.5 - [facility] 14.1 % [facility] LABORATORY MPV 11.7 7.6 - 12.9 [facility] LABORATORY nRBC % Auto 0.0 % [facility] nRBC Abs Auto 0.000 0.000 - [facility] 0.000 [facility] x10(3)/[facility] LABORATORY Specimen Anatomical Collection Method Collection Time Receive d Time (Source) Location / / Volume Laterality Blood specimen 01/17/2019 3:54 AM 019 4:13 (specimen) EDT AM EDT Resulting Agency Comment Spec In Lab Hiwot KIRK HEMATOLOGY ORDERABLES Performing Organization Address City/[facility]/ZIP Code Phon e Number [address] Magnesium (01/17/2019 3:54 AM EDT) P athologist Signature Magnesium 0.96 0.69 - 1.07 [facility] mmol/L [facility] LABORATORY Specimen Anatomical Collection Method Collection Time Receive d Time (Source) Location / / Volume Laterality Blood specimen 01/17/2019 3:54 AM 019 4:13 (specimen) EDT AM EDT Resulting Agency Comment Spec In Lab Thomas Terrazas II, MD CHEMISTRY ORDERABLES Performing Organization Address City/State/ZIP Code Phon e Number [address] (ABNORMAL) BMP w/fasting Glucose (01/17/2019 3:54 AM EDT) P athologist Signature Glucose 114 (H) 65 - 99 [facility] Fasting mg/dL [facility] Comment: ?Fasting* Glucose Interpretive C riteria [...] of Diabetes Mellitus, Position Statement from the [place] [employer]. ??Diabete s Care, Volume 33, Supplement 1, Apr 2009 BUN 69 (H) 8 - 18 mg/dL [facility] LABORATORY Creatinine 3.86 (H) 0.70 - 1.20 mg/dL [facility] LABORATORY Sodium 120 (L) 135 - 145 mmol/L [facility] Potassium 3.7 3.5 - 5.0 mmol/L [facility] Comment: Please note: ??Patients with WBC >100,00 0 may have falsely elevated Potassium levels. ??For accurate Potassium quantif ication in these patients send serum separator tube (gold top) for subsequent determinations. ??Contact the Clinical Chemistry Laboratory if there are any qu estions. Chloride 76 (L) 98 - 107 mmol/L [facility] CO2 27 22 - 31 mmol/L [facility] Anion Gap 17 (H) 5 - 15 mmol/L [facility] LABORATORY Calcium 9.2 8.5 - 10.5 mg/dL [facility] LAB[facility] Estimated GFR 11 (L) >=60 mL/min/1.73 m?? [facility] Comment: The eGFR was calculated using the CKD-EP I equation. As with all creatinine based estimates of kidney function, eGFR values calculated with the CKD-EPI equation are not accurate in patients wi th acute kidney failure, extremes of body mass or the acutely ill. [email or web address] eGFR 13 (L) >=60 mL/min/1.73 m?? [facility] Comment: The eGFR was calculated using the CKD-EP I equation. As with all creatinine based estimates of kidney function, eGFR values calculated with the CKD-EPI equation are not accurate in patients wi th acute kidney failure, extremes of body mass or the acutely ill. [email or web address] Specimen Anatomical Collection Method Collection Time Receive d Time (Source) Location / / Volume Laterality Blood specimen 01/17/2019 3:54 AM 019 4:13 (specimen) EDT AM EDT Resulting Agency Comment Spec In Lab Thomas Terrazas II, MD CHEMISTRY ORDERABLES Performing Organization Address City/State/[place] [address] (ABNORMAL) BMP w/fasting Glucose (01/16/2019 8:02 PM EDT) P athologist Signature Glucose 158 (H) 65 - 99 [facility] Fasting mg/dL [facility] Comment: ?Fasting* Glucose Interpretive C riteria [...] of Diabetes Mellitus, Position Statement from the [place] [employer]. ??Diabete s Care, Volume 33, Supplement 1, Apr 2009 BUN 70 (H) 8 - 18 mg/dL [facility] Creatinine 3.65 (H) 0.70 - 1.20 mg/dL [facility] Sodium 118 (Critical) 135 - 145 mmol/L [facility] Comment: Called by: CRISTINA, Read back by: Sharad Mcmillan_, Date/Time:01/16/19 21:00. Potassium 3.5 3.5 - 5.0 mmol/L [facility] Comment: Please note: ??Patients with WBC >100,00 0 may have falsely elevated Potassium levels. ??For accurate Potassium quantif ication in these patients send serum separator tube (gold top) for subsequent determinations. ??Contact the Clinical Chemistry Laboratory if there are any qu estions. Chloride 75 (L) 98 - 107 mmol/L [facility] CO2 27 22 - 31 mmol/L [facility] Anion Gap 16 (H) 5 - 15 mmol/L [facility] Calcium 9.0 8.5 - 10.5 mg/dL [facility] Estimated GFR 12 (L) >=60 mL/min/1.73 m?? [facility] Comment: The eGFR was calculated using the CKD-EP I equation. As with all creatinine based estimates of kidney function, eGFR values calculated with the CKD-EPI equation are not accurate in patients wi acute kidney failure, extremes of body mass or the acutely ill. [email or web address] eGFR 14 (L) >=60 mL/min/1.73 m?? [facility] Comment: The eGFR was calculated using the CKD-EP I equation. As with all creatinine based estimates of kidney function, eGFR values calculated with the CKD-EPI equation are not accurate in patients wi acute kidney failure, extremes of body mass or the acutely ill. [email or web address] Specimen Anatomical Collection Method Collection Time Receive d Time (Source) Location / / Volume Laterality Blood specimen 01/16/2019 8:02 PM 019 8:17 (specimen) EDT PM EDT Resulting Agency Comment Spec In Lab Thomas Terrazas II, MD CHEMISTRY ORDERABLES Performing Organization Address City/State/ZIP Code Phon e Number [place] [id number] XR Chest PA & [...] below. ? Electronically signed by: Jennifer Hauser [facility] ([phone]), at 01/16/2019 2:42 PM Narrative 01/16/2019 2:42 [...] number below. Electronically signed by: Jennifer Hauser [facility] ([phone]), at 01/16/2019 2:42 PM Thomas Terrazas II, [...] below. ? Electronically signed by: Jennifer Hauser [facility] ([phone]), at 01/16/2019 3:26 PM Narrative 01/16/2019 3:26 [...] this report, please contact e number below. Thomas Terrazas II, MD IMG DX ORDERABLES Magnesium (01/16/2019 1:06 PM EDT) athologist Signature Magnesium 0.88 0.69 - 1.07 [facility] mmol/L [facility] Specimen Anatomical Collection Method Collection Time Receive d Time (Source) Location / / Volume Laterality Blood specimen 01/16/2019 1:06 PM 019 1:24 (specimen) EDT PM EDT Resulting Agency Comment Spec In Lab Thomas Terrazas II, MD CHEMISTRY ORDERABLES Performing Organization Address City/State/[place] [address] (ABNORMAL) BMP w/fasting Glucose (01/16/2019 1:06 PM EDT) athologist Signature Glucose 124 (H) 65 - 99 [facility] Fasting mg/dL [facility] Comment: ?Fasting* Glucose Interpretive C riteria [...] of Diabetes Mellitus, Position Statement from the [place] [employer]. ??Diabete s Care, Volume 33, Supplement 1, Apr 2009 BUN 64 (H) 8 - 18 mg/dL [facility] Creatinine 3.57 (H) 0.70 - 1.20 mg/dL [facility] Sodium 118 (Critical) 135 - 145 mmol/L [facility] Comment: Results rechecked Called by: chandana, Read back by: Bella garcia, Date/Time:01/16/19 14:05. Potassium 4.0 3.5 - 5.0 mmol/L [facility] Comment: Please note: ??Patients with WBC >100,00 0 may have falsely elevated Potassium levels. ??For accurate Potassium quantif ication in these patients send serum separator tube (gold top) for subsequent determinations. ??Contact the Clinical Chemistry Laboratory if there are any qu estions. Chloride 74 (L) 98 - 107 mmol/L [facility] CO2 27 22 - 31 mmol/L [facility] Anion Gap 17 (H) 5 - 15 mmol/L [facility] Calcium 9.3 8.5 - 10.5 mg/dL [facility] Estimated GFR 12 (L) >=60 mL/min/1.73 m?? [facility] Comment: The eGFR was calculated using the CKD-EP I equation. As with all creatinine based estimates of kidney function, eGFR values calculated with the CKD-EPI equation are not accurate in patients wi th acute kidney failure, extremes of body mass or the acutely ill. [email or web address] eGFR 14 (L) >=60 mL/min/1.73 m?? [facility] Comment: The eGFR was calculated using the CKD-EP I equation. As with all creatinine based estimates of kidney function, eGFR values calculated with the CKD-EPI equation are not accurate in patients wi th acute kidney failure, extremes of body mass or the acutely ill. [email or web address] Specimen Anatomical Collection Method Collection Time Receive d Time (Source) Location / / Volume Laterality Blood specimen 01/16/2019 1:06 PM 019 1:24 (specimen) EDT PM EDT Resulting Agency Comment Spec In Lab Thomas Terrazas II, MD CHEMISTRY ORDERABLES Performing Organization Address City/State/ZIP Code Phon e Number [address] Magnesium (01/16/2019 8:53 AM EDT) athologist Signature Magnesium 0.83 0.69 - 1.07 [facility] mmol/L [facility] Specimen Anatomical Collection Method Collection Time Receive d Time (Source) Location / / Volume Laterality Blood specimen Venous Draw / 01/16/2019 8:53 AM 2018 9:07 (specimen) Unknown EDT AM EDT Resulting Agency Comment Spec In Lab Hiwot KIRK CHEMISTRY ORDERABLES Performing Organization Address City/[facility]/ZIP Code Phon e Number [address] (ABNORMAL) BMP w/fasting Glucose (01/16/2019 8:53 AM EDT) athologist Signature Glucose 119 (H) 65 - 99 [facility] Fasting mg/dL [facility] Comment: ?Fasting* Glucose Interpretive C riteria [...] of Diabetes Mellitus, Position Statement from the [place] [employer]. ??Diabete s Care, Volume 33, Supplement 1, Apr 2009 BUN 64 (H) 8 - 18 mg/dL [facility] Creatinine 3.53 (H) 0.70 - 1.20 mg/dL [facility] Sodium 117 (Critical) 135 - 145 mmol/L [facility] Comment: Called by: TACOS, Read back by: Javier enedina Eidradha, Date/Time:01/16/19 09:40. Potassium 3.6 3.5 - 5.0 mmol/L [facility] Comment: Please note: ??Patients with WBC >100,00 0 may have falsely elevated Potassium levels. ??For accurate Potassium quantif ication in these patients send serum separator tube (gold top) for subsequent determinations. ??Contact the Clinical Chemistry Laboratory if there are any qu estions. Chloride 72 (L) 98 - 107 mmol/L [facility] CO2 27 22 - 31 mmol/L [facility] Anion Gap 18 (H) 5 - 15 mmol/L [facility] Calcium 9.1 8.5 - 10.5 mg/dL [facility] Estimated GFR 12 (L) >=60 mL/min/1.73 m?? [facility] Comment: The eGFR was calculated using the CKD-EP I equation. As with all creatinine based estimates of kidney function, eGFR values calculated with the CKD-EPI equation are not accurate in patients wi th acute kidney failure, extremes of body mass or the acutely ill. [email or web address] eGFR 14 (L) >=60 mL/min/1.73 m?? [facility] Comment: The eGFR was calculated using the CKD-EP I equation. As with all creatinine based estimates of kidney function, eGFR values calculated with the CKD-EPI equation are not accurate in patients wi th acute kidney failure, extremes of body mass or the acutely ill. [email or web address] Specimen Anatomical Collection Method Collection Time Receive d Time (Source) Location / / Volume Laterality Blood specimen 01/16/2019 8:53 AM 019 8:57 (specimen) EDT AM EDT Resulting Agency Comment Spec In Lab Thomas Terrazas II, MD CHEMISTRY ORDERABLES Performing Organization Address City/State/[place] [address] (ABNORMAL) Differential, Automated (01/16/2019 5:20 AM EDT) Patholo gist Method Time Signature Neutrophils % 84.4 % [facility] Neutr Abs (ANC) 9.47 (H) 1.70 - [facility] 6.10 [facility] x10(3)/[facility] LABORATORY Lymphocytes % 3.4 % [facility] Lymphocytes Abs 0.4 (L) 0.9 - 3.2 [facility] x10(3)/[facility] LABORATORY Monocytes % 10.4 % [facility] Monocyte Abs 1.2 (H) 0.3 - 0.9 [facility] x10(3)/[facility] LABORATORY Eosinophils % 1.1 % [facility] Eosinophils Abs 0.1 0.0 - 0.4 [facility] x10(3)/[facility] LABORATORY Basophils % 0.4 % [facility] Basophils Abs 0.0 0.0 - 0.1 [facility] x10(3)/[facility] LABORATORY Immature Gran % 0.30 % [facility] Comment: Immature granulocytes(IG's)percentage an d absolute count will include metamyelocytes, myelocytes, and promyelo cytes. Blood smears from CBCs yielding IG's will be scanned manually for concor dance. If this scan disagrees with the automated IG or if promyelocytes are not ed, a manual differential will be performed. Blanca Gran Abs 0.03 0.00 - 0.04 x10(3)/[facility] Specimen Anatomical Collection Method Collection Time Receive d Time (Source) Location / / Volume Laterality Blood specimen 01/16/2019 5:20 AM 019 5:43 (specimen) EDT AM EDT Resulting Agency Comment Spec In Lab Bertha Ruano APRN HEMATOLOGY ORDERABLES Performing Organization Address City/State/[place] [address] (ABNORMAL) Hemogram (01/16/2019 5:20 AM EDT) [facility] Signature WBC 11.2 (H) 4.0 - 9.5 [facility] x10(3)/[facility] LABORATORY RBC 3.61 (L) 4.00 - [facility] 5.21 [facility] x10(6)/[facility] LABORATORY Hemoglobin 11.0 (L) 11.7 - [facility] 15.5 gm/dL [facility] Hematocrit 30.7 (L) 35.7 - [facility] 45.8 % [facility] MCV 85.0 82.6 - [facility]4 [facility] LAB[facility]ATORY MCH 30.5 27.1 - [facility] 32.0 pg [facility] MCHC 35.8 (H) 31.7 - [facility] 35.0 gm/dL [facility] Platelets 252 145 - 357 [facility] x10(3)/[facility] LABORATORY RDWSD 46.1 (H) 37.0 - [facility] 46.0 [facility] LABORATORY RDWCV 15.5 (H) 11.5 - [facility] 14.1 % [facility] MPV 11.5 7.6 - 12.9 [facility] LABORATORY nRBC % Auto 0.0 % [facility] nRBC Abs Auto 0.000 0.000 - [facility] 0.000 [facility] x10(3)/[facility] LABORATORY Specimen Anatomical Collection Method Collection Time Receive d Time (Source) Location / / Volume Laterality Blood specimen 01/16/2019 5:20 AM 019 5:43 (specimen) EDT AM EDT Resulting Agency Comment Spec In Lab Bertha Ruano APRN HEMATOLOGY ORDERABLES Performing Organization Address City/State/[place] [address] (ABNORMAL) BMP w/fasting Glucose (01/16/2019 5:20 AM EDT) P athologist Signature Glucose 133 (H) 65 - 99 [facility] Fasting mg/dL [facility] Comment: ?Fasting* Glucose Interpretive C riteria [...] of Diabetes Mellitus, Position Statement from the [place] [employer]. ??Diabete s Care, Volume 33, Supplement 1, Apr 2009 BUN 63 (H) 8 - 18 mg/dL [facility] Creatinine 3.33 (H) 0.70 - 1.20 mg/dL [facility] Sodium 116 (Critical) 135 - 145 mmol/L [facility] Comment: Called by: sonja, Read back by: Wanda Almaguer, Date/Time:01/16/19 06:39. Potassium 3.4 (L) 3.5 - 5.0 mmol/L [facility] Comment: Please note: ??Patients with WBC >100,00 0 may have falsely elevated Potassium levels. ??For accurate Potassium quantif ication in these patients send serum separator tube (gold top) for subsequent determinations. ??Contact the Clinical Chemistry Laboratory if there are any qu estions. Chloride 72 (L) 98 - 107 mmol/L [facility] CO2 28 22 - 31 mmol/L [facility] Anion Gap 16 (H) 5 - 15 mmol/L [facility] Calcium 9.4 8.5 - 10.5 mg/dL [facility] Estimated GFR 13 (L) >=60 mL/min/1.73 m?? [facility] Comment: The eGFR was calculated using the CKD-EP I equation. As with all creatinine based estimates of kidney function, eGFR values calculated with the CKD-EPI equation are not accurate in patients wi th acute kidney failure, extremes of body mass or the acutely ill. [email or web address] eGFR 15 (L) >=60 mL/min/1.73 m?? [facility] Comment: The eGFR was calculated using the CKD-EP I equation. As with all creatinine based estimates of kidney function, eGFR values calculated with the CKD-EPI equation are not accurate in patients wi th acute kidney failure, extremes of body mass or the acutely ill. [email or web address] Specimen Anatomical Collection Method Collection Time Receive d Time (Source) Location / / Volume Laterality Blood specimen 01/16/2019 5:20 AM 019 6:01 (specimen) EDT AM EDT Resulting Agency Comment Spec In Lab Bertha Ruano APRN CHEMISTRY ORDERABLES Performing Organization Address City/[facility]/ZIP Code Phon e Number [address] Scan, Peripheral Blood (01/15/2019 4:39 AM EDT) [facility] [employer] Method Time Signature Plat Estimate Normal [facility] RBC Morphology Abnormal [facility] Ovalocytes 1-5 /HPF [facility] Specimen Anatomical Collection Method Collection Time Receive d Time (Source) Location / / Volume Laterality Blood specimen 01/15/2019 4:39 AM 019 4:45 (specimen) EDT AM EDT Resulting Agency Comment Spec In Lab Bertha Ruano APRN HEMATOLOGY ORDERABLES Performing Organization Address City/[facility]/[place] [address] (ABNORMAL) Differential, Automated (01/15/2019 4:39 AM EDT) [employer] Method Time Signature Neutrophils % 71.1 % [facility] Neutr Abs (ANC) 7.62 (H) 1.70 - [facility] 6.10 [facility] x10(3)/[facility] LABORATORY Lymphocytes % 9.4 % [facility] Lymphocytes Abs 1.0 0.9 - 3.2 [facility] x10(3)/[facility] LABORATORY Monocytes % 14.7 % [facility] Monocyte Abs 1.6 (H) 0.3 - 0.9 [facility] x10(3)/[facility] LABORATORY Eosinophils % 3.9 % [facility] Eosinophils Abs 0.4 0.0 - 0.4 [facility] x10(3)/[facility] LABORATORY Basophils % 0.6 % [facility] Basophils Abs 0.1 0.0 - 0.1 [facility] x10(3)/[facility] LABORATORY Immature Gran % 0.30 % [facility] Comment: Immature granulocytes(IG's)percentage an d absolute count will include metamyelocytes, myelocytes, and promyelo cytes. Blood smears from CBCs yielding IG's will be scanned manually for concor dance. If this scan disagrees with the automated IG or if promyelocytes are not ed, a manual differential will be performed. Blanca Gran Abs 0.03 0.00 - 0.04 x10(3)/[facility]ORY Specimen Anatomical Collection Method Collection Time Receive d Time (Source) Location / / Volume Laterality Blood specimen 01/15/2019 4:39 AM 019 4:45 (specimen) EDT AM EDT Resulting Agency Comment Spec In Lab Bertha Ruano APRN HEMATOLOGY ORDERABLES Performing Organization Address City/State/[place] [address] (ABNORMAL) Hemogram (01/15/2019 4:39 AM EDT) Analysis Performed At Patho logist Time Signature WBC 10.7 (H) 4.0 - 9.5 [facility] x10(3)/[facility] LABORATORY RBC 3.65 (L) 4.00 - [facility] 5.21 [facility] x10(6)/[facility] LABORATORY Hemoglobin 11.3 (L) 11.7 - [facility] 15.5 gm/dL [facility] Hematocrit 32.9 (L) 35.7 - [facility] 45.8 % [facility] MCV 90.1 82.6 - [facility] 94.4 fL [facility] MCH 31.0 27.1 - [facility] 32.0 pg [facility] MCHC 34.3 31.7 - [facility] 35[facility] gm/dL [facility] Platelets 269 145 - 357 [facility] x10(3)/[facility] LABORATORY RDWSD 50.2 (H) 37.0 - [facility] ZHANG 46.0 [facility] RDWCV 15.8 (H) 11.5 - [facility] ZHANG 14.1 % [facility] MPV 10.7 7.6 - 12.9 [facility] nRBC % Auto 0.0 % [facility] nRBC Abs Auto 0.000 0.000 - [facility] ZHANG 0.000 [facility] x10(3)/[facility] LABORATORY Specimen Anatomical Collection Method Collection Time Receive d Time (Source) Location / / Volume Laterality Blood specimen 01/15/2019 4:39 AM 019 4:45 (specimen) EDT AM EDT Resulting Agency Comment Spec In Lab Bertha Ruano APRN HEMATOLOGY ORDERABLES Performing Organization Address City/State/[place] [address] (ABNORMAL) BMP w/fasting Glucose (01/15/2019 4:39 AM EDT) P athologist Signature Glucose 119 (H) 65 - 99 [facility] Fasting mg/dL [facility] Comment: ?Fasting* Glucose Interpretive C riteria [...] of Diabetes Mellitus, Position Statement from the [place] [employer]. ??Diabete s Care, Volume 33, Supplement 1, Apr 2009 BUN 70 (H) 8 - 18 mg/dL [facility] Creatinine 3.83 (H) 0.70 - 1.20 mg/dL [facility] Sodium 123 (L) 135 - 145 mmol/L [facility] Potassium 3.4 (L) 3.5 - 5.0 mmol/L [facility] Comment: Please note: ??Patients with WBC >100,00 0 may have falsely elevated Potassium levels. ??For accurate Potassium quantif ication in these patients send serum separator tube (gold top) for subsequent determinations. ??Contact the Clinical Chemistry Laboratory if there are any qu estions. Chloride 73 (L) 98 - 107 mmol/L [facility] CO2 32 (H) 22 - 31 mmol/L [facility] Anion Gap 18 (H) 5 - 15 mmol/L [facility] Calcium 9.4 8.5 - 10.5 mg/dL [facility] Estimated GFR 11 (L) >=60 mL/min/1.73 m?? [facility] Comment: The eGFR was calculated using the CKD-EP I equation. As with all creatinine based estimates of kidney function, eGFR values calculated with the CKD-EPI equation are not accurate in patients wi th acute kidney failure, extremes of body mass or the acutely ill. [email or web address] eGFR 13 (L) >=60 mL/min/1.73 m?? [facility] Comment: The eGFR was calculated using the CKD-EP I equation. As with all creatinine based estimates of kidney function, eGFR values calculated with the CKD-EPI equation are not accurate in patients wi th acute kidney failure, extremes of body mass or the acutely ill. [email or web address] Specimen Anatomical Collection Method Collection Time Receive d Time (Source) Location / / Volume Laterality Blood specimen 01/15/2019 4:39 AM 019 4:45 (specimen) EDT AM EDT Resulting Agency Comment Spec In Lab Bertha Ruano APRN CHEMISTRY ORDERABLES Performing Organization Address City/State/[place] [address] CARDIAC CATHETERIZATION (01/14/2019 2:29 PM EDT) Anatomical Region Laterality Modality Other Specimen (Source) Anatomical Location Collection Method / Collectio n Time Received Time / Laterality Volume Narrative 01/17/2019 11:59 AM EDT ?[facility] ? Cardiac Cathete rization/Intervention Report ? Patient Name: HarmonPretty ackerman. ? Procedure Date: 01/14/2019 ? A #: [id number] ? Primary Physician: Brent Kamara ? Case #: [id number] ? File Name: [id number] ? Catheterization Order Number: [id number] ? [facility] ? Final Report [place], [place] ? Patient Name: ? Pretty Vasquez Harmon ? ID#: ?[id number] ? : ?1950 ? Procedure Date: ? [...] procedure was Urgent. The indication for ?the labor and employment paralegal visit is cardiomyo andrew. Chest pain symptom [...] ?PVR ?182 ? 149 ?Techniq ue ?Estimated Yamini ?Thermodilution ?Comments: ??Peripheral BP 103/6 3. ? [...] right heart catheterization and ?oximetry. ? Brent Kamara M.D. ? Electronically Signed by: Brent serrano M.D. ? Report Finalized: 01/17/2019 ??11:54 ? Report Last Ammended: 02/03/2019 ??11:33 ? Procedure Note Brent Kamara MD - 02/03/2019Formatt ing of this note might be different from the original. [facility] Cardiac Catheterization/Intervention Re port Patient Name: Pretty Harmon Procedure Date: 01/14/2019 A #: [id number] Primary Physician: Brent Kamara Case #: [id number] File Name: [id number] Catheterization Order Number: [id number] [facility] Final Report [place], [place] Patient Name: Pretty Harmon ID#: [id number] : [id number] Procedure Date: January 14, 2019 Case #: [id number] Room: 2 Case Physician: Brent Kamara M.D. St art: 14:09 Fellow: Gerard Auguste M.D. Admissio n: 01/07/2019 Frank Arroyo M.D. Referring Physician: Sanjuanita Lee M.D. Procedures: * Right Heart Catheterization * Oximetry History Pretty Harmon is a 68 year old woman. Sh lyn has hypertension. The patient's smoking status is [...] designated a s ASA Class IV. The [facility] clinical frailty scale is 6: Moderately [...] e was Urgent. The indication for the labor and employment paralegal visit is cardiomyopathy. C hest pain symptom [...] (ABNORMAL) Differential, Automated (01/14/2019 3:42 AM EDT) [facility] Method Time Signature Neutrophils % 75.4 % [facility] Neutr Abs (ANC) 9.68 (H) 1.70 - [facility] 6.10 [facility] x10(3)/[facility] L LABORATORY Lymphocytes % 9.0 % [facility] Lymphocytes Abs 1.2 0.9 - 3.2 [facility] x10(3)/[facility] LABORATORY Monocytes % 11.1 % [facility] Monocyte Abs 1.4 (H) 0.3 - 0.9 [facility] x10(3)/[facility] LABORATORY Eosinophils % 3.7 % [facility] Eosinophils Abs 0.5 (H) 0.0 - 0.4 [facility] x10(3)/[facility] LABORATORY Basophils % 0.5 % [facility] Basophils Abs 0.1 0.0 - 0.1 [facility] x10(3)/[facility] LABORATORY Immature Gran % 0.30 % [facility] Comment: Immature granulocytes(IG's)percentage an d absolute count will include metamyelocytes, myelocytes, and promyelo cytes. Blood smears from CBCs yielding IG's will be scanned manually for concor dance. If this scan disagrees with the automated IG or if promyelocytes are not ed, a manual differential will be performed. Blanca Gran Abs 0.04 0.00 - 0.04 x10(3)/[facility] LABORATORY Specimen Anatomical Collection Method Collection Time Receive d Time (Source) Location / / Volume Laterality Blood specimen 01/14/2019 3:42 AM 019 4:13 (specimen) EDT AM EDT Resulting Agency Comment Spec In Lab Bertha Ruano APRN HEMATOLOGY ORDERABLES Performing Organization Address City/State/[place] [address] (ABNORMAL) Hemogram (01/14/2019 3:42 AM EDT) Analysis Performed At Patho logist Time Signature WBC 12.8 (H) 4.0 - 9.5 [facility] x10(3)/[facility] LABORATORY RBC 3.84 (L) 4.00 - [facility] 5.21 [facility] x10(6)/[facility] LABORATORY Hemoglobin 11.8 11.7 - [facility] 15.5 gm/dL [facility] Hematocrit 33.4 (L) 35.7 - [facility] ZHANG 45.8 % [facility] MCV 87.0 82.6 - [facility] 94.4 [facility] LABORATORY MCH 30.7 27.1 - [facility] [place] 32.0 pg [facility] MCHC 35.3 (H) 31.7 - [facility] 35.0 gm/dL [facility] Platelets 285 145 - 357 [facility] x10(3)/[facility] LABORATORY RDWSD 47.4 (H) 37.0 - [place] [place] 46.0 [facility] LABORATORY RDWCV 15.8 (H) 11.5 - [facility] 14.1 % [facility] MPV 10.8 7.6 - 12.9 [facility] LABORATORY nRBC % Auto 0.0 % [facility] nRBC Abs Auto 0.000 0.000 - [facility] Z[place] 0.000 [facility] x10(3)/[facility] LABORATORY Specimen Anatomical Collection Method Collection Time Receive d Time (Source) Location / / Volume Laterality Blood specimen 01/14/2019 3:42 AM 019 4:13 (specimen) EDT AM EDT Resulting Agency Comment Spec In Lab Bertha Ruano APRN HEMATOLOGY ORDERABLES Performing Organization Address City/State/[place] [address] (ABNORMAL) BMP w/fasting Glucose (01/14/2019 3:42 AM EDT) P athologist Signature Glucose 138 (H) 65 - 99 [facility] Comment: ?Fasting* Glucose Interpretive C riteria [...] of Diabetes Mellitus, Position Statement from the [place] [employer]. ??Diabete s Care, Volume 33, Supplement 1, Apr 2009 BUN 69 (H) 8 - 18 mg/dL [facility] Creatinine 3.97 (H) 0.70 - 1.20 mg/dL [facility] Sodium 126 (L) 135 - 145 mmol/L [facility] Potassium 3.7 3.5 - 5.0 mmol/L [facility] Comment: Please note: ??Patients with WBC >100,00 0 may have falsely elevated Potassium levels. ??For accurate Potassium quantif ication in these patients send serum separator tube (gold top) for subsequent determinations. ??Contact the Clinical Chemistry Laboratory if there are any qu estions. Chloride 75 (L) 98 - 107 mmol/L [facility] CO2 32 (H) 22 - 31 mmol/L [facility] Anion Gap 19 (H) 5 - 15 mmol/L [facility]ORY Calcium 9.8 8.5 - 10.5 mg/dL [facility] Estimated GFR 11 (L) >=60 mL/min/1.73 m?? [facility] Comment: The eGFR was calculated using the CKD-EP I equation. As with all creatinine based estimates of kidney function, eGFR values calculated with the CKD-EPI equation are not accurate in patients wi th acute kidney failure, extremes of body mass or the acutely ill. [email or web address] eGFR 12 (L) >=60 mL/min/1.73 m?? [facility] Comment: The eGFR was calculated using the CKD-EP I equation. As with all creatinine based estimates of kidney function, eGFR values calculated with the CKD-EPI equation are not accurate in patients wi th acute kidney failure, extremes of body mass or the acutely ill. [email or web address] Specimen Anatomical Collection Method Collection Time Receive d Time (Source) Location / / Volume Laterality Blood specimen 01/14/2019 3:42 AM 019 4:13 (specimen) EDT AM EDT Resulting Agency Comment Spec In Lab Bertha Carlin King KYRA CHEMISTRY ORDERABLES Performing Organization Address City/State/[place] [address] (ABNORMAL) Differential, Automated (01/13/2019 4:56 AM EDT) [facility] Method Time Signature Neutrophils % 73.9 % [facility] Neutr Abs (ANC) 9.05 (H) 1.70 - [facility] 6.10 [facility] x10(3)/[facility] LABORATORY Lymphocytes % 10.0 % [facility] Lymphocytes Abs 1.2 0.9 - 3.2 [facility] x10(3)/[facility] LABORATORY Monocytes % 11.1 % [facility] Monocyte Abs 1.4 (H) 0.3 - 0.9 [facility] x10(3)/[facility] LABORATORY Eosinophils % 4.0 % [facility] Eosinophils Abs 0.5 (H) 0.0 - 0.4 [facility] x10(3)/[facility] LABORATORY Basophils % 0.6 % [facility] Basophils Abs 0.1 0.0 - 0.1 [facility] x10(3)/[facility] LABORATORY Immature Gran % 0.40 % [facility] Comment: Immature granulocytes(IG's)percentage an d absolute count will include metamyelocytes, myelocytes, and promyelo cytes. Blood smears from CBCs yielding IG's will be scanned manually for concor dance. If this scan disagrees with the automated IG or if promyelocytes are not ed, a manual differential will be performed. Blanca Gran Abs 0.05 (H) 0.00 - 0.04 x10(3)/[facility] LABORATORY Specimen Anatomical Collection Method Collection Time Receive d Time (Source) Location / / Volume Laterality Blood specimen 01/13/2019 4:56 AM 019 5:29 (specimen) EDT AM EDT Resulting Agency Comment Spec In Lab Bertha Ruano KYRA HEMATOLOGY ORDERABLES Performing Organization Address City/State/[place] [address] (ABNORMAL) Hemogram (01/13/2019 4:56 AM EDT) Analysis Performed At Patho logist Time Signature WBC 12.2 (H) 4.0 - 9.5 [facility] x10(3)/[facility] LABORATORY RBC 3.89 (L) 4.00 - [facility] 5.21 [facility] x10(6)/[facility] LABORATORY Hemoglobin 11.8 11.7 - [facility] 15.5 gm/dL [facility] Hematocrit 34.2 (L) 35.7 - [facility] 45.8 % [facility] MCV 87.9 82.6 - [facility] 94[facility]4 [facility] LABORATORY MCH 30.3 27.1 - [facility] 32.0 pg [facility] MCHC 34.5 31.7 - [facility] 35.0 gm/dL [facility] Platelets 299 145 - 357 [facility] x10(3)/[facility] LABORATORY RDWSD 48.7 (H) 37.0 - [facility] 46.0 [facility] LABORATORY RDWCV 16.4 (H) 11.5 - [facility] 14.1 % [facility] MPV 10.9 7.6 - 12.9 [facility] nRBC % Auto 0.0 % [facility] nRBC Abs Auto 0.000 0.000 - [facility] 0.000 [facility] x10(3)/[facility] LABORATORY Specimen Anatomical Collection Method Collection Time Receive d Time (Source) Location / / Volume Laterality Blood specimen 01/13/2019 4:56 AM 019 5:29 (specimen) EDT AM EDT Resulting Agency Comment Spec In Lab Bertha Carlin King KYRA HEMATOLOGY ORDERABLES Performing Organization Address City/State/[place] [address] (ABNORMAL) BMP w/fasting Glucose (01/13/2019 4:56 AM EDT) athologist Signature Glucose 125 (H) 65 - 99 [facility] Fasting mg/dL [facility] Comment: ?Fasting* Glucose Interpretive C riteria [...] of Diabetes Mellitus, Position Statement from the [place] [employer]. ??Diabete s Care, Volume 33, Supplement 1, Apr 2009 BUN 64 (H) 8 - 18 mg/dL [facility] Creatinine 3.48 (H) 0.70 - 1.20 mg/dL [facility] LABORATORY Sodium 125 (L) 135 - 145 mmol/L [facility] Potassium 4.1 3.5 - 5.0 mmol/L [facility] Comment: Please note: ??Patients with WBC >100,00 0 may have falsely elevated Potassium levels. ??For accurate Potassium quantif ication in these patients send serum separator tube (gold top) for subsequent determinations. ??Contact the Clinical Chemistry Laboratory if there are any qu estions. Chloride 79 (L) 98 - 107 mmol/L [facility] CO2 30 22 - 31 mmol/L [facility] Anion Gap 16 (H) 5 - 15 mmol/L [facility] Calcium 9.7 8.5 - 10.5 mg/dL [facility] Estimated GFR 13 (L) >=60 mL/min/1.73 m?? [facility] Comment: The eGFR was calculated using the CKD-EP I equation. As with all creatinine based estimates of kidney function, eGFR values calculated with the CKD-EPI equation are not accurate in patients wi th acute kidney failure, extremes of body mass or the acutely ill. [email or web address] eGFR 15 (L) >=60 mL/min/1.73 m?? [facility] Comment: The eGFR was calculated using the CKD-EP I equation. As with all creatinine based estimates of kidney function, eGFR values calculated with the CKD-EPI equation are not accurate in patients wi th acute kidney failure, extremes of body mass or the acutely ill. [email or web address] Specimen Anatomical Collection Method Collection Time Receive d Time (Source) Location / / Volume Laterality Blood specimen 01/13/2019 4:56 AM 019 5:29 (specimen) EDT AM EDT Resulting Agency Comment Spec In Lab Bertha Ruano APRN CHEMISTRY ORDERABLES Performing Organization Address City/State/ZIP Code Phon e Number [address] POCT Glucose (01/12/2019 11:28 AM EDT) athologist Signature POC Glucose 144 65 - 199 [facility] mg/dL [facility] Comment: Supplemental ranges: <140 mg/dL before meals <180 mg/dL all other times of the day Specimen Anatomical Collection Method Collection Time Receive d Time (Source) Location / / Volume Laterality Blood specimen 01/12/2019 11:28 9 (specimen) AM EDT 11:28 AM EDT Thomas Terrazas II, MD POINT OF CARE TEST ORDERABLE S Performing Organization Address City/State/ZIP Code Phon e Number [address] Magnesium (01/12/2019 5:44 AM EDT) athologist Signature Magnesium 0.89 0.69 - 1.07 [facility] mmol/L [facility] Specimen Anatomical Collection Method Collection Time Receive d Time (Source) Location / / Volume Laterality Blood specimen Venous Draw / 01/12/2019 5:44 AM 2018 6:10 (specimen) Unknown EDT AM EDT Resulting Agency Comment Spec In Lab Bertha Ruano KYRA CHEMISTRY ORDERABLES Performing Organization Address City/State/[place] [address] (ABNORMAL) Differential, Automated (01/12/2019 5:44 AM EDT) [facility] Method Time Signature Neutrophils % 79.5 % [facility] Neutr Abs (ANC) 9.42 (H) 1.70 - [facility] 6.10 [facility] x10(3)/[facility] LABORATORY Lymphocytes % 6.9 % [facility] Lymphocytes Abs 0.8 (L) 0.9 - 3.2 [facility] x10(3)/[facility] LABORATORY Monocytes % 7.7 % [facility] Monocyte Abs 0.9 0.3 - 0.9 [facility] x10(3)/[facility] LABORATORY Eosinophils % 4.9 % [facility] Eosinophils Abs 0.6 (H) 0.0 - 0.4 [facility] x10(3)/[facility] LABORATORY Basophils % 0.5 % [facility] Basophils Abs 0.1 0.0 - 0.1 [facility] x10(3)/[facility] LABORATORY Immature Gran % 0.50 % [facility] Comment: Immature granulocytes(IG's)percentage an d absolute count will include metamyelocytes, myelocytes, and promyelo cytes. Blood smears from CBCs yielding IG's will be scanned manually for concor dance. If this scan disagrees with the automated IG or if promyelocytes are not ed, a manual differential will be performed. Blanca Gran Abs 0.06 (H) 0.00 - 0.04 x10(3)/[facility] LABORATORY Specimen Anatomical Collection Method Collection Time Receive d Time (Source) Location / / Volume Laterality Blood specimen 01/12/2019 5:44 AM 019 6:10 (specimen) EDT AM EDT Resulting Agency Comment Spec In Lab Whitney Kaplan ADMINISTRATIVE SUPPORT SPECIALIST HEMATOLOGY ORDERABLES Performing Organization Address City/State/ZIP Code Phon e Number [place] [id number] (ABNORMAL) Hemogram (01/12/2019 5:44 AM EDT) [facility] Method Time Signature WBC 11.8 (H) 4.0 - 9.5 [facility] x10(3)/[facility] LABORATORY RBC 3.94 (L) 4.00 - [facility] 5.21 [facility] x10(6)/[facility] LABORATORY Hemoglobin 12.3 11.7 - [facility] 15.5 gm/dL [facility] Hematocrit 34.8 (L) 35.7 - [facility] 45.8 % [facility] MCV 88.3 82.6 - [facility] 94.4 [facility] LABORATORY MCH 31.2 27.1 - [facility] 32.0 pg [facility] MCHC 35.3 (H) 31.7 - [facility] 35.0 gm/dL [facility] Platelets 307 145 - 357 [facility] x10(3)/[facility] LABORATORY RDWSD 48.3 (H) 37.0 - [facility] [place] 46.0 [facility] LABORATORY RDWCV 16.3 (H) 11.5 - [facility] 14.1 % [facility] MPV 10.8 7.6 - 12.9 [facility] LABORATORY nRBC % Auto 0.3 % [facility] nRBC Abs Auto 0.030 (H) 0.000 - [facility] 0.000 [facility] x10(3)/[facility] LABORATORY Specimen Anatomical Collection Method Collection Time Receive d Time (Source) Location / / Volume Laterality Blood specimen 01/12/2019 5:44 AM 019 6:10 (specimen) EDT AM EDT Resulting Agency Comment Spec In Lab Whitney Kaplan ADMINISTRATIVE SUPPORT SPECIALIST HEMATOLOGY ORDERABLES Performing Organization Address City/State/[place] [address] [facility] [address] Osmolality (01/12/2019 5:44 AM EDT) P athologist Signature Osmolality 281 275 - 295 [facility] mOsm/kg [facility]OR[facility]ORY Specimen Anatomical Collection Method Collection Time Receive d Time (Source) Location / / Volume Laterality Blood specimen 01/12/2019 5:44 AM 019 6:10 (specimen) EDT AM EDT Resulting Agency Comment Spec In Lab Bertha Ruano APRN CHEMISTRY ORDERABLES Performing Organization Address City/State/[place] [address] (ABNORMAL) BMP w/fasting Glucose (01/12/2019 5:44 AM EDT) athologist Signature Glucose 153 (H) 65 - 99 [facility] Fasting mg/dL [facility] Comment: ?Fasting* Glucose Interpretive C riteria [...] of Diabetes Mellitus, Position Statement from the [place] [employer]. ??Diabete s Care, Volume 33, Supplement 1, Apr 2009 BUN 64 (H) 8 - 18 mg/dL [facility] Creatinine 3.46 (H) 0.70 - 1.20 mg/dL [facility]ORY Sodium 127 (L) 135 - 145 mmol/L [facility] Potassium 3.3 (L) 3.5 - 5.0 mmol/L [facility] Comment: Please note: ??Patients with WBC >100,00 0 may have falsely elevated Potassium levels. ??For accurate Potassium quantif ication in these patients send serum separator tube (gold top) for subsequent determinations. ??Contact the Clinical Chemistry Laboratory if there are any qu estions. Chloride 79 (L) 98 - 107 mmol/L [facility] CO2 27 22 - 31 mmol/L [facility] Anion Gap 21 (H) 5 - 15 mmol/L [facility]ORY Calcium 9.7 8.5 - 10.5 mg/dL [facility] Estimated GFR 13 (L) >=60 mL/min/1.73 m?? [facility] Comment: The eGFR was calculated using the CKD-EP I equation. As with all creatinine based estimates of kidney function, eGFR values calculated with the CKD-EPI equation are not accurate in patients wi th acute kidney failure, extremes of body mass or the acutely ill. [email or web address] eGFR 15 (L) >=60 mL/min/1.73 m?? [facility] Comment: The eGFR was calculated using the CKD-EP I equation. As with all creatinine based estimates of kidney function, eGFR values calculated with the CKD-EPI equation are not accurate in patients wi th acute kidney failure, extremes of body mass or the acutely ill. [email or web address] Specimen Anatomical Collection Method Collection Time Receive d Time (Source) Location / / Volume Laterality Blood specimen 01/12/2019 5:44 AM 019 6:10 (specimen) EDT AM EDT Resulting Agency Comment Spec In Lab Whitney Kaplan APRN CHEMISTRY ORDERABLES Performing Organization Address City/State/[place] [address] EKG 12 Lead (01/12/2019 1:25 AM EDT) Component Value Ref Range Test Analysis Performed Pathologis t Method Time At Signature Ventricular rate 60 BPM MUSE SYSTEM Atrial Rate 60 BPM MUSE SYSTEM P-R Interval 150 ms MUSE SYSTEM QRS Duration 94 ms MUSE SYSTEM Q-T Interval 522 ms MUSE SYSTEM QTC Calculated 522 ms MUSE SYSTEM (Bezet) Calculated P [place] 73 degrees MUSE SYSTEM Calculated R [place] 21 degrees MUSE SYSTEM Calculated T [place] -103 degrees MUSE SYSTEM INTERPRETATION Normal sinus [...] Ruby MD ECG ORDERABLES Performing Organization Address City/[facility]/ZIP Code Phon e Number MUSE SYSTEM Electrolytes, urine, random (01/11/2019 9:28 PM EDT) P athologist Signature U Sodium 88 mmol/L [facility] U Potassium 33 mmol/L [facility] U Chloride 98 mmol/L [facility] Specimen Anatomical Collection Method Collection Time Receive d Time (Source) Location / / Volume Laterality Urine specimen Urine / Unknown 01/11/2019 9:28 PM 12/27 (specimen) EDT 11:35 PM EDT Resulting Agency Comment Spec In Lab Konrad Melissa MD URINE ORDERABLES Performing Organization Address City/[facility]/ZIP Code Phon e Number [address] Osmolality, urine, random (01/11/2019 9:28 PM EDT) P athologist Signature U Osmolality 278 50 - 1,200 [facility] mOsm/kg [facility]OR[facility]ORY Specimen Anatomical Collection Method Collection Time Receive d Time (Source) Location / / Volume Laterality Urine specimen 01/11/2019 9:28 PM 019 9:38 (specimen) EDT PM EDT Resulting Agency Comment Spec In Lab Bertha Ruano APRN URINE ORDERABLES Performing Organization Address City/[facility]/ZIP [facility] Phon e Number [address] Urea nitrogen, urine, random (01/11/2019 9:28 PM EDT) P athologist Signature U Urea 150 mg/dL [facility] LABORATORY Specimen Anatomical Collection Method Collection Time Receive d Time (Source) Location / / Volume Laterality Urine specimen 01/11/2019 9:28 PM 019 9:37 (specimen) EDT PM EDT Resulting Agency Comment Spec In Lab Bertha Carlin King KYRA URINE ORDERABLES Performing Organization Address City/[facility]/[place] [address] (ABNORMAL) Protein Electrophoresis, urine, random (01/11/2019 9:28 PM EDT) Patholo gist Method Time Signature U Protein Ran 34 (H) 0 - 12 [facility] mg/dL [facility] U Albumin 72 % total [facility] U Globulin 28 % total [facility] U M Band None [facility] LABORATORY U PEP See Note [facility] LABORATORY Comment: There is no evidence of clonal free ligh t chains in this patient's urine sample. Specimen Anatomical Collection Method Collection Time Receive d Time (Source) Location / / Volume Laterality Urine specimen 01/11/2019 9:28 PM 019 9:37 (specimen) EDT PM EDT Resulting Agency Comment Spec In Lab Whitney Sonia Kaplan APRN URINE ORDERABLES Performing Organization Address City/State/[place] [address] Nuclear Pharmacologic Stress Cardiology (01/11/2019 12:03 PM EDT) Anatomical Region Laterality Modality Other Specimen (Source) Anatomical Location Collection Method / Collectio n Time Received Time / Laterality Volume Narrative This result has an attachment that is no t available. Whitney Kaplan APRN CARDIAC SERVICES ORDERABLES Heparin (unfractionated) Level (01/11/2019 12:03 PM EDT) P athologist Signature Heparin UFH 0.27 IU/mL [facility] LABORATORY Comment: Guidelines for therapeutic unfractionate [...] Organization Address City/State/[place] [address] [place] Pharmacologic Stress CT [...] below. ? Electronically signed by: Jennifer Medrano [facility] ([phone]), at 01/11/2019 11:09 AM Procedure Note Keny [...] number below. Electronically signed by: Jennifer Medrano [facility] ([phone]), at 01/11/2019 11:09 AM Whitney Sonia Kaplan APRN IMG NM ORDERABLES NM Pharmacologic Stress Myocardial Perfusion [...] this report, please contact e number below. Whitney Kaplan APRN IMG NM ORDERABLES EKG 12 Lead (01/11/2019 7:05 AM EDT) Component Value Ref Range Test Analysis Performed Pathologis t Method Time At Signature Ventricular rate 68 BPM MUSE SYSTEM Atrial Rate 68 BPM MUSE SYSTEM P-R Interval 146 ms MUSE SYSTEM QRS Duration 96 ms MUSE SYSTEM Q-T Interval 440 ms MUSE SYSTEM QTC Calculated 467 ms MUSE SYSTEM (Bezet) Calculated P [place] 76 degrees MUSE SYSTEM Calculated R [place] 25 degrees MUSE SYSTEM Calculated T [place] -127 degrees MUSE SYSTEM INTERPRETATION Normal sinus rhythm MUSE SYSTEM Possible Left atrial enlargement Left ventricular hypertrophy with repolarization abnormality Abnormal ECG When compared with ECG of 10-JAN-2019 06:59, No significant change was found Confirmed by MD ISSAC, ALEJO ([id number]) on 01/11/2019 8:53:45 AM Specimen Anatomical Collection Method Collection Time Receive d Time (Source) Location / / Volume Laterality 01/11/2019 7:05 AM 9 8:53 EDT AM EDT Whitney Kaplan APRN ECG ORDERABLES Performing Organization Address City/State/ZIP Code Phon e Number MUSE SYSTEM (ABNORMAL) Differential, Automated (01/11/2019 4:55 AM EDT) Patholo gist Method Time Signature Neutrophils % 72.2 % [facility] LABORATORY Neutr Abs (ANC) 8.11 (H) 1.70 - [facility] 6.10 [facility] x10(3)/[facility] L LABORATORY Lymphocytes % 11.6 % [facility] LABOR[facility] Lymphocytes Abs 1.3 0.9 - 3.2 [facility] x10(3)/[facility] LABORATORY Monocytes % 7.2 % [facility] Monocyte Abs 0.8 0.3 - 0.9 [facility] x10(3)/[facility] LABORATORY Eosinophils % 7.4 % [facility] Eosinophils Abs 0.8 (H) 0.0 - 0.4 [facility] x10(3)/[facility] LABORATORY Basophils % 0.9 % [facility] Basophils Abs 0.1 0.0 - 0.1 [facility] x10(3)/[facility] LABORATORY Immature Gran % 0.70 % [facility] LABOR[facility]ORY Comment: Immature granulocytes(IG's)percentage an d absolute count will include metamyelocytes, myelocytes, and promyelo cytes. Blood smears from CBCs yielding IG's will be scanned manually for concor dance. If this scan disagrees with the automated IG or if promyelocytes are not ed, a manual differential will be performed. Blanca Gran Abs 0.08 (H) 0.00 - 0.04 x10(3)/[facility] LABORATORY Specimen Anatomical Collection Method Collection Time Receive d Time (Source) Location / / Volume Laterality Blood specimen 01/11/2019 4:55 AM 019 5:07 (specimen) EDT AM EDT Resulting Agency Comment Spec In Lab Whitney Kaplan APRN HEMATOLOGY ORDERABLES Performing Organization Address City/State/[place] [address] (ABNORMAL) Hemogram (01/11/2019 4:55 AM EDT) [facility] gist Method Time Signature WBC 11.2 (H) 4.0 - 9.5 [facility] x10(3)/[facility] LABORATORY RBC 3.57 (L) 4.00 - [facility] 5.21 [facility] x10(6)/[facility] LABORATORY Hemoglobin 11.2 (L) 11.7 - [facility] 15.5 gm/dL [facility] Hematocrit 32.7 (L) 35.7 - [facility] 45.8 % [facility] LABORATORY MCV 91.6 82.6 - [facility] [place] 94.4 [facility] MCH 31.4 27.1 - [facility] [place] 32.0 pg [facility] MCHC 34.3 31.7 - [facility] 35.0 gm/dL [facility] Platelets 286 145 - 357 [facility] x10(3)/[facility] LABORATORY RDWSD 49.4 (H) 37.0 - [facility] 46.0 [facility] RDWCV 16.2 (H) 11.5 - [facility] 14.1 % [facility] MPV 10.5 7.6 - 12.9 [facility] nRBC % Auto 0.4 % [facility] nRBC Abs Auto 0.040 (H) 0.000 - [facility] 0.000 [facility] x10(3)/[facility] LABORATORY Specimen Anatomical Collection Method Collection Time Receive d Time (Source) Location / / Volume Laterality Blood specimen 01/11/2019 4:55 AM 019 5:07 (specimen) EDT AM EDT Resulting Agency Comment Spec In Lab Whitney Kaplan APRN HEMATOLOGY ORDERABLES Performing Organization Address City/State/[place] [address] Heparin (unfractionated) Level (01/11/2019 4:55 AM EDT) P athologist Signature Heparin UFH 0.40 IU/mL [facility] LABORATORY Comment: Guidelines for therapeutic unfractionate [...] Organization Address City/State/[place] [address] (ABNORMAL) BMP w/fasting Glucose (01/11/2019 4:55 AM EDT) athologist Signature Glucose 173 (H) 65 - 99 [facility] Fasting mg/dL [facility] LABORATORY Comment: ?Fasting* Glucose Interpretive C riteria [...] of Diabetes Mellitus, Position Statement from the [place] [employer]. ??Diabete s Care, Volume 33, Supplement 1, Apr 2009 BUN 58 (H) 8 - 18 mg/dL [facility] LABORATORY Creatinine 3.01 (H) 0.70 - 1.20 mg/dL [facility] LABORATORY Sodium 125 (L) 135 - 145 mmol/L [facility] LABORATORY Potassium 4.0 3.5 - 5.0 mmol/L [facility] LABORATORY Comment: Please note: ??Patients with WBC >100,00 0 may have falsely elevated Potassium levels. ??For accurate Potassium quantif ication in these patients send serum separator tube (gold top) for subsequent determinations. ??Contact the Clinical Chemistry Laboratory if there are any qu estions. Chloride 84 (L) 98 - 107 mmol/L [facility] CO2 26 22 - 31 mmol/L [facility] Anion Gap 15 5 - 15 mmol/L [facility] LABORATORY Calcium 9.1 8.5 - 10.5 mg/dL [facility] LABORATORY Estimated GFR 15 (L) >=60 mL/min/1.73 m?? [facility] LAB[facility] Comment: The eGFR was calculated using the CKD-EP I equation. As with all creatinine based estimates of kidney function, eGFR values calculated with the CKD-EPI equation are not accurate in patients wi th acute kidney failure, extremes of body mass or the acutely ill. [email or web address] eGFR 17 (L) >=60 mL/min/1.73 m?? [facility] Comment: The eGFR was calculated using the CKD-EP I equation. As with all creatinine based estimates of kidney function, eGFR values calculated with the CKD-EPI equation are not accurate in patients wi th acute kidney failure, extremes of body mass or the acutely ill. [email or web address] Specimen Anatomical Collection Method Collection Time Receive d Time (Source) Location / / Volume Laterality Blood specimen 01/11/2019 4:55 AM 019 5:07 (specimen) EDT AM EDT Resulting Agency Comment Spec In Lab Whitney Kaplan APRN CHEMISTRY ORDERABLES Performing Organization Address City/State/[place] [address] Heparin (unfractionated) Level (01/10/2019 10:02 PM EDT) P athologist Signature Heparin UFH 0.10 IU/mL [facility] LABORATORY Comment: Guidelines for therapeutic unfractionate [...] Jolly MD HEMATOLOGY ORDERABLES Performing Organization Address City/[facility]/[place]IP [place] [address] Magnesium (01/10/2019 6:10 PM EDT) P athologist Signature Magnesium 0.75 0.69 - 1.07 [facility] mmol/L [facility] LABORATORY Specimen Anatomical Collection Method Collection Time Receive d Time (Source) Location / / Volume Laterality Blood specimen Venous Draw / 01/10/2019 6:10 PM 2018 6:18 (specimen) Unknown EDT PM EDT Resulting Agency Comment Spec In Lab Whitney Kaplan APRN CHEMISTRY ORDERABLES Performing Organization Address City/State/[place] [address] (ABNORMAL) Electrolytes panel (01/10/2019 6:10 PM EDT) P athologist Signature Sodium 127 (L) 135 - 145 [facility] mmol/L [facility] LABORATORY Potassium 4.3 3.5 - 5.0 [facility] mmol/L [facility] LABORATORY Comment: Please note: ??Patients with WBC >100,00 0 may have falsely elevated Potassium levels. ??For accurate Potassium quantif ication in these patients send serum separator tube (gold top) for subsequent determinations. ??Contact the Clinical Chemistry Laboratory if there are any qu estions. Chloride 86 (L) 98 - 107 mmol/L [facility] CO2 24 22 - 31 mmol/L [facility] Anion Gap 17 (H) 5 - 15 mmol/L [facility] LABORATORY Specimen Anatomical Collection Method Collection Time Receive d Time (Source) Location / / Volume Laterality Blood specimen 01/10/2019 6:10 PM 019 6:18 (specimen) EDT PM EDT Resulting Agency Comment Spec In Lab Whitney Kaplan APRN CHEMISTRY ORDERABLES Performing Organization Address City/State/[place] [address] Heparin (unfractionated) Level (01/10/2019 3:55 PM EDT) athologist Signature Heparin UFH 0.33 IU/mL [facility] LABORATORY Comment: Guidelines for therapeutic unfractionate [...] Organization Address City/State/ZIP Code Phon e Number [place] [id number] HOSPITAL LAB[address]ORY Drive Renal Artery Duplex, Unil (01/10/2019 10:05 AM EDT) Component Value Ref Test Analysis Performed At [facility] gist Range Method Time Signature VB Text Department: Vascular Surgery Lab VASCUBASE Report Patient: [id number] (PRETTY HARMON) CPT: 49377 ICD10: I70.1 Referring Physician: GREYSON JOLLY ?? [...] Heparin (unfractionated) Level (01/10/2019 7:58 AM EDT) athologist Signature Heparin UFH 0.26 IU/mL [facility] LABORATORY Comment: Guidelines for therapeutic unfractionate [...] Melissa MD HEMATOLOGY ORDERABLES Performing Organization Address City/[facility] [place] [address] EKG 12 Lead (01/10/2019 6:59 AM EDT) Component Value Ref Range Test Analysis Performed Pathologis t Method Time At Signature Ventricular rate 66 BPM MUSE SYSTEM Atrial Rate 66 BPM MUSE SYSTEM P-R Interval 146 ms MUSE SYSTEM QRS Duration 106 ms MUSE SYSTEM Q-T Interval 452 ms MUSE SYSTEM QTC Calculated 473 ms MUSE SYSTEM (Bezet) Calculated P [place] 62 degrees MUSE SYSTEM Calculated R [place] 21 degrees MUSE SYSTEM Calculated T [place] -90 degrees MUSE SYSTEM INTERPRETATION Normal sinus rhythm MUSE SYSTEM Possible Left atrial enlargement Left ventricular hypertrophy with repolarization abnormality Abnormal ECG When compared with ECG of 09-JAN-2019 08:39, (unconfirmed) T wave inversion more evident in Anterior leads Confirmed by MD Silke, [place] Pretty ([id number]) on 01/10/2019 9 :29:56 PM Specimen Anatomical Collection Method Collection Time Receive d Time (Source) Location / / Volume Laterality 01/10/2019 6:59 AM 9 9:29 EDT PM EDT Whitney Kaplan APRN ECG ORDERABLES Performing Organization Address City/[facility]/ZIP Code Phon e Number MUSE SYSTEM (ABNORMAL) pro-Brain Natriuretic Peptide (01/10/2019 12:51 AM EDT) P athologist Signature ProBNP >66746 (H) <=125 [facility] LABOR[facility]ORY Specimen Anatomical Collection Method Collection Time Receive d Time (Source) Location / / Volume Laterality Blood specimen Venous Draw / 01/10/2019 12:51 01/11/20 19 3:06 (specimen) Unknown AM EDT AM EDT Resulting Agency Comment Spec In Lab Whitney Kaplan APRN CHEMISTRY ORDERABLES Performing Organization Address City/State/[place] [address] (ABNORMAL) Differential, Automated (01/10/2019 12:51 AM EDT) Patholo gist Method Time Signature Neutrophils % 72.5 % [facility] Neutr Abs (ANC) 8.35 (H) 1.70 - [facility] 6.10 [facility] x10(3)/[facility] L LABORATORY Lymphocytes % 11.9 % [facility] LABORATORY Lymphocytes Abs 1.4 0.9 - 3.2 [facility] x10(3)/[facility] LABORATORY Monocytes % 8.8 % [facility] LABORATORY Monocyte Abs 1.0 (H) 0.3 - 0.9 [facility] x10(3)/[facility] LABORATORY Eosinophils % 5.6 % [facility]OR[facility] Eosinophils Abs 0.6 (H) 0.0 - 0.4 [facility] x10(3)/[facility] LABORATORY Basophils % 0.4 % [facility] LABOR[facility] Basophils Abs 0.0 0.0 - 0.1 [facility] x10(3)/[facility] LABORATORY Immature Gran % 0.80 % [facility] LABORATORY Comment: Immature granulocytes(IG's)percentage an d absolute count will include metamyelocytes, myelocytes, and promyelo cytes. Blood smears from CBCs yielding IG's will be scanned manually for concor dance. If this scan disagrees with the automated IG or if promyelocytes are not ed, a manual differential will be performed. Blanca Gran Abs 0.09 (H) 0.00 - 0.04 x10(3)/[facility] LABORATORY Specimen Anatomical Collection Method Collection Time Receive d Time (Source) Location / / Volume Laterality Blood specimen 01/10/2019 12:51 9 1:04 (specimen) AM EDT AM EDT Resulting Agency Comment Spec In Lab Whitney Kaplan APRN HEMATOLOGY ORDERABLES Performing Organization Address City/State/[place] [address] (ABNORMAL) Hemogram (01/10/2019 12:51 AM EDT) [facility] gist Method Time Signature WBC 11.5 (H) 4.0 - 9.5 [facility] x10(3)/[facility] LABORATORY RBC 3.43 (L) 4.00 - [facility] 5.21 [facility] x10(6)/[facility] LABORATORY Hemoglobin 10.6 (L) 11.7 - [facility] 15[facility] gm/dL [facility] LABORATORY Hematocrit 31.2 (L) 35.7 - [facility] 45.8 % [facility] LABORATORY MCV 91.0 82.6 - [facility] [place] 94.4 [facility] LABORATORY MCH 30.9 27.1 - [facility] [place] 32.0 pg [facility] MCHC 34.0 31.7 - [facility] 35.0 gm/dL [facility] Platelets 281 145 - 357 [facility] x10(3)/[facility] LABORATORY RDWSD 50.8 (H) 37.0 - [facility] [place] 46.0 [facility] RDWCV 16.1 (H) 11.5 - [facility] [place] 14.1 % [facility] MPV 10.8 7.6 - 12.9 [facility] nRBC % Auto 0.3 % [facility] nRBC Abs Auto 0.030 (H) 0.000 - [facility] 0.000 [facility] x10(3)/[facility] LABORATORY Specimen Anatomical Collection Method Collection Time Receive d Time (Source) Location / / Volume Laterality Blood specimen 01/10/2019 12:51 9 1:04 (specimen) AM EDT AM EDT Resulting Agency Comment Spec In Lab Whitney Kaplan APRN HEMATOLOGY ORDERABLES Performing Organization Address City/State/[place] [address] Heparin (unfractionated) Level (01/10/2019 12:51 AM EDT) athologist Signature Heparin UFH 0.18 IU/mL [facility] Comment: Guidelines for therapeutic unfractionate [...] Organization Address City/State/ZIP Code Phon e Number [place] [id number]OS[address] LAB[address]ORY Drive (ABNORMAL) BMP w/fasting Glucose (01/10/2019 12:51 AM EDT) athologist Signature Glucose 114 (H) 65 - 99 [facility] Fasting mg/dL [facility] LABORATORY Comment: ?Fasting* Glucose Interpretive C riteria [...] of Diabetes Mellitus, Position Statement from the [place] [employer]. ??Diabete s Care, Volume 33, Supplement 1, Apr 2009 BUN 61 (H) 8 - 18 mg/dL [facility] LABORATORY Creatinine 3.23 (H) 0.70 - 1.20 mg/dL [facility] LABORATORY Sodium 131 (L) 135 - 145 mmol/L [facility] LABORATORY Potassium 3.6 3.5 - 5.0 mmol/L [facility] LABORATORY Comment: Please note: ??Patients with WBC >100,00 0 may have falsely elevated Potassium levels. ??For accurate Potassium quantif ication in these patients send serum separator tube (gold top) for subsequent determinations. ??Contact the Clinical Chemistry Laboratory if there are any qu estions. Chloride 89 (L) 98 - 107 mmol/L [facility] LABOR[facility]ORY CO2 25 22 - 31 mmol/L [facility] Anion Gap 17 (H) 5 - 15 mmol/L [facility] LABORATORY Calcium 8.9 8.5 - 10.5 mg/dL [facility] LABORATORY Estimated GFR 14 (L) >=60 mL/min/1.73 m?? [facility] LAB[facility]ORY Comment: The eGFR was calculated using the CKD-EP I equation. As with all creatinine based estimates of kidney function, eGFR values calculated with the CKD-EPI equation are not accurate in patients wi th acute kidney failure, extremes of body mass or the acutely ill. [email or web address] eGFR 16 (L) >=60 mL/min/1.73 m?? [facility] LAB[facility] Comment: The eGFR was calculated using the CKD-EP I equation. As with all creatinine based estimates of kidney function, eGFR values calculated with the CKD-EPI equation are not accurate in patients wi th acute kidney failure, extremes of body mass or the acutely ill. [email or web address] Specimen Anatomical Collection Method Collection Time Receive d Time (Source) Location / / Volume Laterality Blood specimen 01/10/2019 12:51 9 1:04 (specimen) AM EDT AM EDT Resulting Agency Comment Spec In Lab Whitney Kaplan APRN CHEMISTRY ORDERABLES Performing Organization Address City/State/[place] [address] Heparin (unfractionated) Level (01/09/2019 7:06 PM EDT) P athologist Signature Heparin UFH 0.22 IU/mL [facility] LABORATORY Comment: Guidelines for therapeutic unfractionate [...] Organization Address City/State/[place] [address] Magnesium (01/09/2019 7:06 PM EDT) P athologist Signature Magnesium 0.83 0.69 - 1.07 [facility] mmol/L [facility] LABORATORY Specimen Anatomical Collection Method Collection Time Receive d Time (Source) Location / / Volume Laterality Blood specimen 01/09/2019 7:06 PM 019 7:15 (specimen) EDT PM EDT Resulting Agency Comment Spec In Lab Whitney Kaplan APRN CHEMISTRY ORDERABLES Performing Organization Address City/[facility]/[place] [address] (ABNORMAL) Electrolytes panel (01/09/2019 7:06 PM EDT) P athologist Signature Sodium 128 (L) 135 - 145 [facility] mmol/L [facility] LABOR[facility]ORY Potassium 3.9 3.5 - 5.0 [facility] mmol/L [facility] LABOR[facility]ORY Comment: Please note: ??Patients with WBC >100,00 0 may have falsely elevated Potassium levels. ??For accurate Potassium quantif ication in these patients send serum separator tube (gold top) for subsequent determinations. ??Contact the Clinical Chemistry Laboratory if there are any qu estions. Chloride 90 (L) 98 - 107 mmol/L [facility] CO2 22 22 - 31 mmol/L [facility] Anion Gap 16 (H) 5 - 15 mmol/L [facility] LABORATORY Specimen Anatomical Collection Method Collection Time Receive d Time (Source) Location / / Volume Laterality Blood specimen 01/09/2019 7:06 PM 019 7:15 (specimen) EDT PM EDT Resulting Agency Comment Spec In Lab Whitney Kaplan APRN CHEMISTRY ORDERABLES Performing Organization Address City/[facility]/ZIP Code Phon e Number [address] (ABNORMAL) T3, free (01/09/2019 12:44 PM EDT) P athologist Signature T3, Free 1.3 (L) 2.0 - 4.4 [facility] pg/mL [facility] LABORATORY Specimen Anatomical Collection Method Collection Time Receive d Time (Source) Location / / Volume Laterality Blood specimen 01/09/2019 12:44 9 1:06 (specimen) PM EDT PM EDT Resulting Agency Comment Spec In Lab Whitney Kaplan APRN CHEMISTRY ORDERABLES Performing Organization Address City/[facility]/ZIP Code Phon e Number [address] Sedimentation rate (01/09/2019 12:44 PM EDT) P athologist Signature Sed Rate 15 0 - 20 [facility] mm/hr [facility] LABORATORY Specimen Anatomical Collection Method Collection Time Receive d Time (Source) Location / / Volume Laterality Blood specimen 01/09/2019 12:44 9 1:06 (specimen) PM EDT PM EDT Resulting Agency Comment Spec In Lab Whitney Kaplan APRN HEMATOLOGY ORDERABLES Performing Organization Address City/State/ZIP Code Phon e Number [address] CMV Antibody, IgM (01/09/2019 12:44 PM EDT) P athologist Signature CMV IgM Negative Negative [facility] LABORATORY Specimen Anatomical Collection Method Collection Time Receive d Time (Source) Location / / Volume Laterality Blood specimen 01/09/2019 12:44 9 7:48 (specimen) PM EDT AM EDT Resulting Agency Comment Spec In Lab Whitney Kaplan ADMINISTRATIVE SUPPORT SPECIALIST IMMUNOLOGY ORDERABLES Performing Organization Address City/State/ZIP Code Phon e Number [address] CMV Antibody, IgG (01/09/2019 12:44 PM EDT) P athologist Signature CMV IgG Negative Negative [facility] LABORATORY Specimen Anatomical Collection Method Collection Time Receive d Time (Source) Location / / Volume Laterality Blood specimen 01/09/2019 12:44 9 7:48 (specimen) PM EDT AM EDT Resulting Agency Comment Spec In Lab Whitney Lamtawanda RAE IMMUNOLOGY ORDERABLES Performing Organization Address City/[facility]/ZIP Code Phon e Number [address] Parvovirus B19 Antibody IgG and IgM (01/09/2019 12:44 PM EDT) Analysis Performed At Patho logist Time Signature Parvo B19 IgG Negative Negative [facility] LABORATORY Comment: Test Performed by: [facility] [address] [place] [address] [place] Clerk: Prashant Hilario M.D. Ph. D.; CLIA# [id number] Parvo B19 IgM Negative Negative [facility] Comment: Test Performed by: [facility] [address] [place] [address] [place] Clerk: Prashant Hilario M.D. Ph. D.; CLIA# [id number] Parvo B19 Intrp SEE COMMENTS [facility] Comment: No antibody to Parvovirus B19 detected. Acute infection cannot be ruled out as antibody levels m ay be below the limit of detection. If clinically indica ti, a second serum should be submitted in 14-21 days. ADDITIONAL INFORMATIO N This test has been modified from the man ufacturer's instructions. Its performance characteri stics were determined by [facility] in a manner co nsistent with CLIA requirements. This test has not bee n cleared or approved by the U.S. Food and Drug Admin istration. Test Performed by: [facility] [address] [place] [address] Federal [place] Clerk: Prashant Hilario M.D. Ph. D.; CLIA# [id number] Specimen Anatomical Collection Method Collection Time Receive d Time (Source) Location / / Volume Laterality Blood specimen 01/09/2019 12:44 9 8:32 (specimen) PM EDT AM EDT Resulting Agency Comment Spec In Lab Whitney Scott Rosaura RAE IMMUNOLOGY ORDERABLES Performing Organization Address City/[facility]/ZIP Code Phon e Number [address] Lyme IgG & IgM Antibody (01/09/2019 12:44 PM EDT) P athologist Signature Lyme Screening Neg Neg [facility] LABORATORY Specimen Anatomical Collection Method Collection Time Receive d Time (Source) Location / / Volume Laterality Blood specimen 01/09/2019 12:44 9 7:32 (specimen) PM EDT AM EDT Resulting Agency Comment Spec In Lab Whitney Scott Rosaura RAE IMMUNOLOGY ORDERABLES Performing Organization Address City/[facility]/ZIP Code Phon e Number [address] HSV 1 and 2 IgG Antibodies (01/09/2019 12:44 PM EDT) P athologist Signature HSV Type 1 Neg Neg [facility], [facility] HSV Type 2 Neg Neg [facility] Antibody, IgG [facility] Specimen Anatomical Collection Method Collection Time Receive d Time (Source) Location / / Volume Laterality Blood specimen 01/09/2019 12:44 9 7:48 (specimen) PM EDT AM EDT Resulting Agency Comment Spec In Lab Whitney Lamtawanda RAE IMMUNOLOGY ORDERABLES Performing Organization Address City/[facility]/[place] [address] HIV Screen, 4th Generation ([facility]/CGP/APD) (01/09/2019 12:44 PM EDT) Analysis Performed At [facility] Signature HIV-1/2 Ab and Negative Negative [facility] Comment: This 4th Generation HIV [...] Kaplan APRN IMMUNOLOGY ORDERABLES Performing Organization Address City/[facility]/[place] [address] Hepatitis C Antibody (01/09/2019 12:44 PM EDT) Analysis Performed At [facility] Signature Hepatitis C Ab Negative Negative [facility] Specimen Anatomical Collection Method Collection Time Receive d Time (Source) Location / / Volume Laterality Blood specimen 01/09/2019 12:44 9 1:06 (specimen) PM EDT PM EDT Resulting Agency Comment Spec In Lab Whitney Scott Rosaura RAE IMMUNOLOGY ORDERABLES Performing Organization Address City/[facility]/[place] [address] (ABNORMAL) Hepatitis B Core Antibody, Total (01/09/2019 12:44 PM EDT) Patholo gist Method Time Signature Hep B Core Ab Positive (A) Negative [facility] Specimen Anatomical Collection Method Collection Time Receive d Time (Source) Location / / Volume Laterality Blood specimen 01/09/2019 12:44 9 1:06 (specimen) PM EDT PM EDT Resulting Agency Comment Spec In Lab Whitney Scott Rosaura NELSONN CHEMISTRY ORDERABLES Performing Organization Address City/[facility] [place] [address] Hepatitis B Surface Antibody (01/09/2019 12:44 PM EDT) P athologist Signature HepB Surface <3.5 IU/L [facility] Ab [facility] LABORATORY Comment: HepB Surface Ab Quant: Unvaccinated: < 8.5 IU/L Vaccinated: > 11.5 IU/L HepB Surface Ab Negative [facility] Comment: Patient is presumed to be not vaccinated or immune to HBV infection. Expected Results: Vaccinated: Positive Unvaccinated: Negative Specimen Anatomical Collection Method Collection Time Receive d Time (Source) Location / / Volume Laterality Blood specimen 01/09/2019 12:44 9 1:06 (specimen) PM EDT PM EDT Resulting Agency Comment Spec In Lab Whitney Scott Rosaura NELSONN IMMUNOLOGY ORDERABLES Performing Organization Address City/[facility] [place] [address] Hepatitis B Surface Antigen (01/09/2019 12:44 PM EDT) Analysis Performed At Patho logist Time Signature HepB Surface Negative Negative [facility] Specimen Anatomical Collection Method Collection Time Receive d Time (Source) Location / / Volume Laterality Blood specimen 01/09/2019 12:44 9 1:06 (specimen) PM EDT PM EDT Resulting Agency Comment Spec In Lab Whitney Lamann ADMINISTRATIVE SUPPORT SPECIALIST CHEMISTRY ORDERABLES Performing Organization Address City/[facility]/ZIP [facility] [place] [address] (ABNORMAL) Hepatitis A Antibody, Total (01/09/2019 12:44 PM EDT) [facility] gist Method Time Signature Hepatitis A Positive (A) Negative [facility] Ab Total [facility] Specimen Anatomical Collection Method Collection Time Receive d Time (Source) Location / / Volume Laterality Blood specimen 01/09/2019 12:44 9 1:06 (specimen) PM EDT PM EDT Resulting Agency Comment Spec In Lab Whitney Kaplan APRN IMMUNOLOGY ORDERABLES Performing Organization Address City/[facility] [place] [address] (ABNORMAL) Free Light Chains, Serum (01/09/2019 12:44 PM EDT) Analysis Performed At Patho logist Time Signature [place] Free 6.94 (H) 0.81 - [facility] Light Chains 2.98 mg/dL [facility] Lambda Free 5.39 (H) 0.86 - [facility] Light Chains 1.99 mg/dL [facility] [place]/Lambda 1.2876 0.5000 - [facility] Free Light 2.4300 [facility] LABORATORY Comment: Please be advised that following [...] Kaplan APRN CHEMISTRY ORDERABLES Performing Organization Address City/[facility] Phon e Number [place] [id number]OS[address] (ABNORMAL) Protein Electrophoresis, serum (01/09/2019 12:44 PM EDT) [facility] gist Method Time Signature Total Prot 6.4 6.1 - 8.0 [facility] Elec gm/dL [facility] Albumin Elect 3.82 3.60 - 6.00 [facility] gm/dL [facility] Alpha1-Globul 0.44 (H) 0.10 - 0.30 [facility] in gm/dL [facility] Alpha2-Globul 0.78 0.40 - 0.90 [facility] in gm/dL [facility] Beta Globulin 0.72 0.50 - 1.00 [place] gm/dL [facility] Gamma 0.64 0.50 - 1.30 [facility] Globulin gm/dL [facility] M1 Band None None [facility] Detected Detected [facility] Specimen Anatomical Collection Method Collection Time Receive d Time (Source) Location / / Volume Laterality Blood specimen 01/09/2019 12:44 9 1:06 (specimen) PM EDT PM EDT Resulting Agency Comment Spec In Lab Whitney Kaplan KYRA CHEMISTRY ORDERABLES Performing Organization Address City/[facility]/ZIP Code Phon e Number [address] Rheumatoid factor, quant (01/09/2019 12:44 PM EDT) athologist Signature RF <10 <=14 IU/mL [facility] Specimen Anatomical Collection Method Collection Time Receive d Time (Source) Location / / Volume Laterality Blood specimen 01/09/2019 12:44 9 1:06 (specimen) PM EDT PM EDT Resulting Agency Comment Spec In Lab Whitney Scott Rosaura RAE IMMUNOLOGY ORDERABLES Performing Organization Address City/[facility]/ZIP Code Phon e Number [address] KAYLEE ([facility]) (01/09/2019 12:44 PM EDT) P athologist Signature KAYLEE Neg Neg [facility] Specimen Anatomical Collection Method Collection Time Receive d Time (Source) Location / / Volume Laterality Blood specimen 01/09/2019 12:44 9 7:48 (specimen) PM EDT AM EDT Resulting Agency Comment Spec In Lab Whitney Kaplan ADMINISTRATIVE SUPPORT SPECIALIST IMMUNOLOGY ORDERABLES Performing Organization Address City/[facility]/ZIP Code Phon e Number [address] Vitamin D, 25-Hydroxy (01/09/2019 12:44 PM EDT) athologist Signature 25-OH Vit D 52 30 - 100 [facility] Total ng/mL [facility] Comment: Deficient <10 ng/mL Insufficient 10 to 29 ng/mL Sufficient 30 to 100 ng/mL Potential Intoxication >100 ng/mL According to the [place] National Osteoporosi s Foundation, Vitamin D concentrations >30 ng/mL are sufficient to protect bone health. ??The National Kidney Foundation has similarly stated that pat ients with Vitamin D concentrations <30ng/mL should be considered to be insu fficient or deficient. http://GameFly.1000jobboersen.de/nkf-guidelines http://built.io/nejm-VitD The [employer] iSYS Vitamin D Immunoassay detec [...] Organization Address City/State/[place] [address] (ABNORMAL) Iron and TIBC (01/09/2019 12:44 PM EDT) P athologist Signature Iron 49 30 - 150 [facility] mcg/dL [facility] TIBC 319 250 - 450 [facility] mcg/dL [facility] Iron Saturation 15 (L) 20 - 50 % [facility] Specimen Anatomical Collection Method Collection Time Receive d Time (Source) Location / / Volume Laterality Blood specimen 01/09/2019 12:44 9 1:06 (specimen) PM EDT PM EDT Resulting Agency Comment Spec In Lab Whitney Kaplan APRN CHEMISTRY ORDERABLES Performing Organization Address City/State/ZIP Code Phon e Number [address] (ABNORMAL) Ferritin (01/09/2019 12:44 PM EDT) P athologist Signature Ferritin 774 (H) 30 - 400 [facility] ng/mL [facility] Comment: Pediatric reference ranges not [...] Agency Comment Spec In Lab Whitney Lamann ADMINISTRATIVE SUPPORT SPECIALIST CHEMISTRY ORDERABLES Performing Organization Address City/State/[place] [address] Folate, serum (01/09/2019 12:44 PM EDT) athologist Signature Folate Lvl 10.5 4.8 - 24.2 [facility] [place] ng/mL [facility] Specimen Anatomical Collection Method Collection Time Receive d Time (Source) Location / / Volume Laterality Blood specimen 01/09/2019 12:44 9 1:06 (specimen) PM EDT PM EDT Resulting Agency Comment Spec In Lab Whitney Lamann ADMINISTRATIVE SUPPORT SPECIALIST CHEMISTRY ORDERABLES Performing Organization Address City/[facility]/[place] [address] (ABNORMAL) Vitamin B12 (01/09/2019 12:44 PM EDT) Analysis Performed At Path logist Time Signature Vitamin B-12 1,351 (H) 232 - [facility] 1,245 [facility] pg/mL [facility] Specimen Anatomical Collection Method Collection Time Receive d Time (Source) Location / / Volume Laterality Blood specimen 01/09/2019 12:44 9 1:06 (specimen) PM EDT PM EDT Resulting Agency Comment Spec In Lab Whitney Kaplan ADMINISTRATIVE SUPPORT SPECIALIST CHEMISTRY ORDERABLES Performing Organization Address City/[facility]/[place] [address] TSH (01/09/2019 12:44 PM EDT) P athologist Signature TSH 4.18 0.27 - 4.20 [facility] [place] mcIU/mL [facility] Specimen Anatomical Collection Method Collection Time Receive d Time (Source) Location / / Volume Laterality Blood specimen 01/09/2019 12:44 9 1:06 (specimen) PM EDT PM EDT Resulting Agency Comment Spec In Lab Whitney Sonia Kaplan APRN CHEMISTRY ORDERABLES Performing Organization Address City/[facility]/[place] [address] Heparin (unfractionated) Level (01/09/2019 9:43 AM EDT) P athologist Signature Heparin UFH 0.19 IU/mL [facility]ATORY Comment: Guidelines for therapeutic unfractionate [...] Jolly MD HEMATOLOGY ORDERABLES Performing Organization Address City/[facility]/ZIP Code Phon e Number [address] EKG 12 Lead (01/09/2019 8:39 AM EDT) Component Value Ref Range Test Analysis Performed Pathologis t Method Time At Signature Ventricular rate 80 BPM MUSE SYSTEM Atrial Rate 80 BPM MUSE SYSTEM P-R Interval 150 ms MUSE SYSTEM QRS Duration 94 ms MUSE SYSTEM Q-T Interval 402 ms MUSE SYSTEM QTC Calculated 463 ms MUSE SYSTEM (Bezet) Calculated P [place] 63 degrees MUSE SYSTEM Calculated R [place] 22 degrees MUSE SYSTEM Calculated T [place] -105 degrees MUSE SYSTEM INTERPRETATION Normal sinus [...] Kaplan APRN ECG ORDERABLES Performing Organization Address City/[facility]/ZIP Code Phon e Number MUSE SYSTEM (ABNORMAL) T4, free (01/09/2019 2:34 AM EDT) athologist Signature Free T4 1.74 (H) 0.93 - 1.70 [facility] ng/dL [facility] Specimen Anatomical Collection Method Collection Time Receive d Time (Source) Location / / Volume Laterality Blood specimen Venous Draw / 01/09/2019 2:34 AM 2018 3:13 (specimen) Unknown EDT AM EDT Resulting Agency Comment Spec In Lab Whitney Kaplan APRN CHEMISTRY ORDERABLES Performing Organization Address City/[facility]/ZIP [facility] [place] [address] (ABNORMAL) Differential, Automated (01/09/2019 2:34 AM EDT) [facility] gist Method Time Signature Neutrophils % 74.1 % [facility] Neutr Abs (ANC) 9.14 (H) 1.70 - [facility] 6.10 [facility] x10(3)/[facility] LABORATORY Lymphocytes % 10.5 % [facility] Lymphocytes Abs 1.3 0.9 - 3.2 [facility] x10(3)/[facility] LABORATORY Monocytes % 8.0 % [facility] Monocyte Abs 1.0 (H) 0.3 - 0.9 [facility] x10(3)/[facility] LABORATORY Eosinophils % 5.7 % [facility] Eosinophils Abs 0.7 (H) 0.0 - 0.4 [facility] x10(3)/[facility] LABORATORY Basophils % 0.6 % [facility] Basophils Abs 0.1 0.0 - 0.1 [facility] x10(3)/[facility] LABORATORY Immature Gran % 1.10 % [facility] Comment: Immature granulocytes(IG's)percentage an d absolute count will include metamyelocytes, myelocytes, and promyelo cytes. Blood smears from CBCs yielding IG's will be scanned manually for concor dance. If this scan disagrees with the automated IG or if promyelocytes are not ed, a manual differential will be performed. Blanca Gran Abs 0.14 (H) 0.00 - 0.04 x10(3)/[facility] LABORATORY Specimen Anatomical Collection Method Collection Time Receive d Time (Source) Location / / Volume Laterality Blood specimen 01/09/2019 2:34 AM 019 2:39 (specimen) EDT AM EDT Resulting Agency Comment Spec In Lab Whitney Kaplan APRN HEMATOLOGY ORDERABLES Performing Organization Address City/State/ZIP Code Phon e Number [place] [id number]OS[address] (ABNORMAL) Hemogram (01/09/2019 2:34 AM EDT) [facility] gist Method Time Signature WBC 12.4 (H) 4.0 - 9.5 [facility] x10(3)/[facility] LABORATORY RBC 3.43 (L) 4.00 - [facility] 5.21 [facility] x10(6)/[facility] LABORATORY Hemoglobin 10.6 (L) 11.7 - [facility] 15.5 gm/dL [facility] Hematocrit 30.9 (L) 35.7 - [facility] 45.8 % [facility] MCV 90.1 82.6 - [facility] 94.4 fL [facility] MCH 30.9 27.1 - [facility] 32.0 pg [facility] MCHC 34.3 31.7 - [facility] 35.0 gm/dL [facility] Platelets 271 145 - 357 [facility] x10(3)/[facility] LABORATORY RDWSD 49.5 (H) 37.0 - [facility] 46.0 [facility] RDWCV 15.8 (H) 11.5 - [facility] 14.1 % [facility] MPV 10.8 7.6 - 12.9 [facility] nRBC % Auto 0.5 % [facility] nRBC Abs Auto 0.060 (H) 0.000 - [facility] 0.000 [facility] x10(3)/[facility] LABORATORY Specimen Anatomical Collection Method Collection Time Receive d Time (Source) Location / / Volume Laterality Blood specimen 01/09/2019 2:34 AM 019 2:39 (specimen) EDT AM EDT Resulting Agency Comment Spec In Lab Whitney Kaplan APRN HEMATOLOGY ORDERABLES Performing Organization Address City/State/[place] [address] Heparin (unfractionated) Level (01/09/2019 2:34 AM EDT) athologist Signature Heparin UFH 0.17 IU/mL [facility] LABORATORY Comment: Guidelines for therapeutic unfractionate [...] Melissa MD HEMATOLOGY ORDERABLES Performing Organization Address City/[facility]/ZIP Code Phon e Number [address] Magnesium (01/09/2019 2:34 AM EDT) P athologist Signature Magnesium 0.81 0.69 - 1.07 [facility] mmol/L [facility] Specimen Anatomical Collection Method Collection Time Receive d Time (Source) Location / / Volume Laterality Blood specimen 01/09/2019 2:34 AM 019 2:39 (specimen) EDT AM EDT Resulting Agency Comment Spec In Lab Konrad Melissa MD CHEMISTRY ORDERABLES Performing Organization Address City/[facility]/ZIP Code Phon e Number [address] (ABNORMAL) BMP w/fasting Glucose (01/09/2019 2:34 AM EDT) P athologist Signature Glucose 124 (H) 65 - 99 [facility] Fasting mg/dL [facility] Comment: ?Fasting* Glucose Interpretive C riteria [...] of Diabetes Mellitus, Position Statement from the [place] [employer]. ??Diabete s Care, Volume 33, Supplement 1, Apr 2009 BUN 66 (H) 8 - 18 mg/dL [facility] Creatinine 3.28 (H) 0.70 - 1.20 mg/dL [facility] Sodium 130 (L) 135 - 145 mmol/L [facility] Potassium 3.3 (L) 3.5 - 5.0 mmol/L [facility] Comment: Please note: ??Patients with WBC >100,00 0 may have falsely elevated Potassium levels. ??For accurate Potassium quantif ication in these patients send serum separator tube (gold top) for subsequent determinations. ??Contact the Clinical Chemistry Laboratory if there are any qu estions. Chloride 87 (L) 98 - 107 mmol/L [facility] CO2 24 22 - 31 mmol/L [facility] Anion Gap 19 (H) 5 - 15 mmol/L [facility] Calcium 8.9 8.5 - 10.5 mg/dL [facility] Estimated GFR 14 (L) >=60 mL/min/1.73 m?? [facility] Comment: The eGFR was calculated using the CKD-EP I equation. As with all creatinine based estimates of kidney function, eGFR values calculated with the CKD-EPI equation are not accurate in patients wi th acute kidney failure, extremes of body mass or the acutely ill. http://built.io/MCnkf eGFR 16 (L) >=60 mL/min/1.73 m?? [facility] Comment: The eGFR was calculated using the CKD-EP I equation. As with all creatinine based estimates of kidney function, eGFR values calculated with the CKD-EPI equation are not accurate in patients wi th acute kidney failure, extremes of body mass or the acutely ill. http://built.io/DHnkf Specimen Anatomical Collection Method Collection Time Receive d Time (Source) Location / / Volume Laterality Blood specimen 01/09/2019 2:34 AM 019 2:39 (specimen) EDT AM EDT Resulting Agency Comment Spec In Lab Whitney Kaplan APRN CHEMISTRY ORDERABLES Performing Organization Address City/State/[place] [address] Heparin (unfractionated) Level (01/08/2019 7:01 PM EDT) athologist Signature Heparin UFH 0.17 IU/mL [facility]ORATORY Comment: Guidelines for therapeutic unfractionate [...] Organization Address City/State/ZIP Code Phon e Number [place] [id number] Magnesium (01/08/2019 12:51 PM EDT) athologist Signature Magnesium 0.86 0.69 - 1.07 [facility] mmol/L [facility] Specimen Anatomical Collection Method Collection Time Receive d Time (Source) Location / / Volume Laterality Blood specimen Venous Draw / 01/08/2019 12:51 01/09/20 19 2:25 (specimen) Unknown PM EDT PM EDT Resulting Agency Comment Spec In Lab Whitney L Rosaura ADMINISTRATIVE SUPPORT SPECIALIST CHEMISTRY ORDERABLES Performing Organization Address City/[facility]/ZIP Code Phon e Number [address] (ABNORMAL) TSH (01/08/2019 12:51 PM EDT) P athologist Signature TSH 8.18 (H) 0.27 - 4.20 [facility] mcIU/mL [facility] Specimen Anatomical Collection Method Collection Time Receive d Time (Source) Location / / Volume Laterality Blood specimen Venous Draw / 01/08/2019 12:51 01/09/20 19 2:25 (specimen) Unknown PM EDT PM EDT Resulting Agency Comment Spec In Lab Whitney Kaplan ADMINISTRATIVE SUPPORT SPECIALIST CHEMISTRY ORDERABLES Performing Organization Address [facility] Code Phon e Number [address] (ABNORMAL) Electrolytes panel (01/08/2019 12:51 PM EDT) athologist Signature Sodium 130 (L) 135 - 145 [facility] mmol/L [facility] Potassium 4.0 3.5 - 5.0 [facility] mmol/L [facility] Comment: Please note: ??Patients with WBC >100,00 0 may have falsely elevated Potassium levels. ??For accurate Potassium quantif ication in these patients send serum separator tube (gold top) for subsequent determinations. ??Contact the Clinical Chemistry Laboratory if there are any qu estions. Chloride 90 (L) 98 - 107 mmol/L [facility] CO2 18 (L) 22 - 31 mmol/L [facility] Anion Gap 22 (H) 5 - 15 mmol/L [facility] Specimen Anatomical Collection Method Collection Time Receive d Time (Source) Location / / Volume Laterality Blood specimen 01/08/2019 12:51 9 2:25 (specimen) PM EDT PM EDT Resulting Agency Comment Spec In Lab Whitney Kaplan ADMINISTRATIVE SUPPORT SPECIALIST CHEMISTRY ORDERABLES Performing Organization Address City/[facility]/ZIP Code Phon e Number [address] (ABNORMAL) Troponin (01/08/2019 12:51 PM EDT) athologist Signature Troponin-T 0.05 (H) 0.00 - ZAKIA ZHANG 0.00 ng/mL [facility] Comment: The 99th percentile for Troponin T is le ss than 0.01 ng/mL, any detectable cTnT concentration using this assay should be considered elevated. According to the third universal definit ion of myocardial infarction the following criteria with a clinical prese ntation consistent with acute myocardial ischemia meets the diagnosis for a myocardial infarction (CA). Detection of a rise and/or fall of [...] additional sample may be indicated. Reference: Third Cambridge Definition of Myocardial Infarction. Journal of the [place] [employer] 2012;60:1581-98 Specimen Anatomical Collection Method Collection Time Receive d Time (Source) Location / / Volume Laterality Blood specimen 01/08/2019 12:51 9 1:00 (specimen) PM EDT PM EDT Resulting Agency Comment Spec In Lab Whitney Kaplan APRN CHEMISTRY ORDERABLES Performing Organization Address City/State/[place] [address] CK (01/08/2019 12:51 PM EDT) athologist Signature CK, Total 160 0 - 160 [facility] unit/L [facility] Specimen Anatomical Collection Method Collection Time Receive d Time (Source) Location / / Volume Laterality Blood specimen 01/08/2019 12:51 9 1:00 (specimen) PM EDT PM EDT Resulting Agency Comment Spec In Lab Whitney Kaplan APRN CHEMISTRY ORDERABLES Performing Organization Address [facility]/[place] [address] Heparin (unfractionated) Level (01/08/2019 12:51 PM EDT) P athologist Signature Heparin UFH 0.12 IU/mL [facility] LABORATORY Comment: Guidelines for therapeutic unfractionate [...] Melissa MD HEMATOLOGY ORDERABLES Performing Organization Address [facility]/[place] [address] (ABNORMAL) Differential, Automated (01/08/2019 10:02 AM EDT) Patholo gist Method Time Signature Neutrophils % 76.1 % [facility] Neutr Abs (ANC) 7.62 (H) 1.70 - [facility] 6.10 [facility] x10(3)/[facility] L LABORATORY Lymphocytes % 10.4 % [facility] Lymphocytes Abs 1.0 0.9 - 3.2 [facility] x10(3)/[facility] LABORATORY Monocytes % 8.2 % [facility] Monocyte Abs 0.8 0.3 - 0.9 [facility] x10(3)/[facility] LABORATORY Eosinophils % 3.1 % [facility] Eosinophils Abs 0.3 0.0 - 0.4 [facility] x10(3)/[facility] LABORATORY Basophils % 1.1 % [facility] Basophils Abs 0.1 0.0 - 0.1 [facility] x10(3)/[facility] LABORATORY Immature Gran % 1.10 % [facility] Comment: Immature granulocytes(IG's)percentage an d absolute count will include metamyelocytes, myelocytes, and promyelo cytes. Blood smears from CBCs yielding IG's will be scanned manually for concor dance. If this scan disagrees with the automated IG or if promyelocytes are not ed, a manual differential will be performed. Blanca Gran Abs 0.11 (H) 0.00 - 0.04 x10(3)/[facility] LABORATORY Specimen Anatomical Collection Method Collection Time Receive d Time (Source) Location / / Volume Laterality Blood specimen 01/08/2019 10:02 9 (specimen) AM EDT 10:28 AM EDT Resulting Agency Comment Spec In Lab Greyson Jolly MD HEMATOLOGY ORDERABLES Performing Organization Address City/State/[place] [address] (ABNORMAL) Hemogram (01/08/2019 10:02 AM EDT) [facility] gist Method Time Signature WBC 10.0 (H) 4.0 - 9.5 [facility] x10(3)/[facility] LABORATORY RBC 3.76 (L) 4.00 - [facility] 5.21 [facility] x10(6)/[facility] LABORATORY Hemoglobin 11.6 (L) 11.7 - [facility] 15.5 gm/dL [facility] Hematocrit 34.9 (L) 35.7 - [facility] % [facility] MCV 92.8 82.6 - ZAKIA DELGADOCOCK 94.4 [facility] LABORATORY MCH 30.9 27.1 - ZAKIA DELGADOCOCK 32.0 pg [facility] MCHC 33.2 31.7 - ZAKIA DELGADOCOCK 35.0 gm/dL [facility] Platelets 271 145 - 357 ZAKIA ZHANG x10(3)/[facility] LABORATORY RDWSD 50.9 (H) 37.0 - ZAKIA ZHANG 46.0 [facility] LABORATORY RDWCV 15.6 (H) 11.5 - ZAKIA BLUNTCK 14.1 % [facility] MPV 11.3 7.6 - 12.9 ZAKIA ZHANG [facility] LABORATORY nRBC % Auto 0.6 % [facility] nRBC Abs Auto 0.060 (H) 0.000 - ZAKIA ZHANG 0.000 [facility] x10(3)/[facility] LABORATORY Specimen Anatomical Collection Method Collection Time Receive d Time (Source) Location / / Volume Laterality Blood specimen 01/08/2019 10:02 9 (specimen) AM EDT 10:28 AM EDT Resulting Agency Comment Spec In Lab Greyson Jolly MD HEMATOLOGY ORDERABLES Performing Organization Address City/State/[place] [address] (ABNORMAL) Troponin (01/08/2019 10:02 AM EDT) P athologist Signature Troponin-T 0.05 (H) 0.00 - ZAKIA ZHANG 0.00 ng/mL [facility] Comment: The 99th percentile for Troponin T is le ss than 0.01 ng/mL, any detectable cTnT concentration using this assay should be considered elevated. According to the third universal definit ion of myocardial infarction the following criteria with a clinical prese ntation consistent with acute myocardial ischemia meets the diagnosis for a myocardial infarction (CA). Detection of a rise and/or fall of [...] additional sample may be indicated. Reference: Third Cambridge Definition of Myocardial Infarction. Journal of the [place] [employer] 2012;60:1581-98 Specimen Anatomical Collection Method Collection Time Receive d Time (Source) Location / / Volume Laterality Blood specimen 01/08/2019 10:02 9 (specimen) AM EDT 10:28 AM EDT Resulting Agency Comment Spec In Lab Konrad Melissa MD CHEMISTRY ORDERABLES Performing Organization Address City/State/[place] [address] ECHOCARDIOGRAM COMPLETE W CONTRAST (01/08/2019 9:14 AM EDT) Anatomical Region Laterality Modality Other Specimen (Source) Anatomical Location Collection Method / Collectio n Time Received Time / Laterality Volume 01/08/2019 Narrative 01/08/2019 10:13 AM EDT Procedure: ?Transthoracic Echocardiogram Patient: ?TERELL Eckert ? (Age): 1950(68y) Med Rec#: ? [id number] ?Sex: ?F ? Site Loc: ? [facility] ?Ht / Wt: ??152.4(cm)/37.2( Pt. Loc: ?Adult Floor ? BSA: ?1.28 Study Date: ?? 01/08/2019 ?Pt. Type: Inpatient Tape: ? Referring: Konrad Melissa Reading: Greyson Jolly ([id number]) Farm Machine Tender: Angel Aragon RDCS Diagnosis: *Chest pain, unspecified (R07.9) *Abdominal aortic [...] E-wave Vmax ?0.7 ?m/sec ? MV deceleration xtsu466.8 ? msec ? MV A-wave Vmax ?1 [...] ? Mid-Inferior ?Hypokinetic ? Mid-Inferoseptal ?Hypokinetic ? [place]-Septal ? Hypokinetic ? [place]-Anterior ? Hypokinetic ? [place]-Lateral ?Hypokinetic ? [place]-Inferior ? Hypokinetic ? [place]-Tip ?Hypokinetic ? This report has been electronically sign ed by: _ Greyson Jolly MD ? 01/08/2019 10 :13:11 Images reviewed and interpretation [facility] Procedure Note Greyson Jolly MD - 01/08/2019Formatt ing of this note might be different from the original. Procedure: Transthoracic Echocardiogram Patient: TERELL Eckert (Age): [birth year](68y) Med Rec#: [id number] Sex: F Site Loc: [facility] Ht / Wt: 152.4(cm)/37.2( Pt. Loc: Adult Floor BSA: 1.28 Study Date: 01/08/2019 Pt. Type: Inpatie nt Tape: Referring: Konrad Melissa Reading: Greyson Jolly ([id number]) Farm Machine Tender: Angel Aragon [facility] [...] MV E-wave Vmax 0.7 m/sec MV deceleration [id number] msec MV A-wave Vmax 1 m/sec MV [...] Hypokinetic Mid-Posterolateral Hypokinetic Mid-Inferior Hypokinetic Mid-Inferoseptal Hypokinetic [place]-Septal Hypokinetic [place]-Anterior Hypokinetic [place]-Lateral Hypokinetic [place]-Inferior Hypokinetic [place]-Tip Hypokinetic This report has been electronically sign ed by: _ Greyson Jolly MD 01/08/2019 10:13:11 Images reviewed and interpretation camryn camargo [facility] Cardiac Ultrasound Laboratory Konrad Melissa MD ECHO ORDERABLES Lipase (01/08/2019 3:35 AM EDT) athologist Signature Lipase 47 0 - 60 [facility] unit/L [facility] Specimen Anatomical Collection Method Collection Time Receive d Time (Source) Location / / Volume Laterality Blood specimen Venous Draw / 01/08/2019 3:35 AM 2018 4:26 (specimen) Unknown EDT AM EDT Resulting Agency Comment Spec In Lab Konrad Melissa MD CHEMISTRY ORDERABLES Performing Organization Address City/State/[place] [address] (ABNORMAL) Troponin (01/08/2019 3:35 AM EDT) athologist Signature Troponin-T 0.05 (H) 0.00 - ZAKIA VICENTE 0.00 ng/mL [facility] Comment: Called by: victor manuel, [...] meets the diagnosis for a myocardial infarction (CA). Detection of a rise and/or fall of [...] additional sample may be indicated. Reference: Third Cambridge Definition of Myocardial Infarction. Journal of the [place] [employer] 2012;60:1581-98 Specimen Anatomical Collection Method Collection Time Receive d Time (Source) Location / / Volume Laterality Blood specimen 01/08/2019 3:35 AM 019 3:45 (specimen) EDT AM EDT Resulting Agency Comment Spec In Lab Natalia Grover MD CHEMISTRY ORDERABLES Performing Organization Address City/[facility]/[place] [address] (ABNORMAL) pro-Brain Natriuretic Peptide (01/08/2019 12:04 AM EDT) P athologist Signature ProBNP >91718 (H) <=125 [facility] pg/mL [facility] Specimen Anatomical Collection Method Collection Time Receive d Time (Source) Location / / Volume Laterality Blood specimen Venous Draw / 01/08/2019 12:04 01/09/20 19 (specimen) Unknown AM EDT 12:13 AM EDT Resulting Agency Comment Spec In Lab Rolo Solis MD CHEMISTRY ORDERABLES Performing Organization Address [facility]/[place] [address] (ABNORMAL) CK (01/08/2019 12:04 AM EDT) athologist Signature CK, Total 231 (H) 0 - 160 [facility] unit/L [facility] Specimen Anatomical Collection Method Collection Time Receive d Time (Source) Location / / Volume Laterality Blood specimen Venous Draw / 01/08/2019 12:04 01/09/20 19 (specimen) Unknown AM EDT 12:13 AM EDT Resulting Agency Comment Spec In Lab Bronson Rodriguez MD CHEMISTRY ORDERABLES Performing Organization Address City/[facility]/[place] [address] Lavender Tube HOLD (01/08/2019 12:04 AM EDT) Patholo gist Method Time Signature Lavender Hold Sample in [facility]. [facility] Specimen Anatomical Collection Method Collection Time Receive d Time (Source) Location / / Volume Laterality Blood specimen Venous Draw / 01/08/2019 12:04 01/09/20 19 (specimen) Unknown AM EDT 12:14 AM EDT Rolo Solis MD HEMATOLOGY ORDERABLES Performing Organization Address City/[facility]/[place] [address] Gold Tube HOLD (01/08/2019 12:04 AM EDT) athologist Signature Gold Hold Sample in [facility]. [facility] Specimen Anatomical Collection Method Collection Time Receive d Time (Source) Location / / Volume Laterality Blood specimen Venous Draw / 01/08/2019 12:04 01/09/20 19 (specimen) Unknown AM EDT 12:13 AM EDT Rolo Solis MD CHEMISTRY ORDERABLES Performing Organization Address City/State/ZIP Code Phon e Number [address] Blue Tube HOLD (01/08/2019 12:04 AM EDT) athologist Signature Blue Hold Sample in [facility]. [facility] Specimen Anatomical Collection Method Collection Time Receive d Time (Source) Location / / Volume Laterality Blood specimen Venous Draw / 01/08/2019 12:04 01/09/20 19 (specimen) Unknown AM EDT 12:14 AM EDT Rolo Solis MD HEMATOLOGY ORDERABLES Performing Organization Address City/State/[place] [address] (ABNORMAL) Troponin (01/08/2019 12:04 AM EDT) athologist [facility] Troponin-T 0.05 (H) 0.00 - [facility] 0.00 ng/mL [facility] Comment: Called by: victor manuel, [...] meets the diagnosis for a myocardial infarction (CA). Detection of a rise and/or fall of [...] additional sample may be indicated. Reference: Third Cambridge Definition of Myocardial Infarction. Journal of the [place] [employer] 2012;60:1581-98 Specimen Anatomical Collection Method Collection Time Receive d Time (Source) Location / / Volume Laterality Blood specimen 01/08/2019 12:04 9 (specimen) AM EDT 12:13 AM EDT Resulting Agency Comment Spec In Lab Natalia Grover MD CHEMISTRY ORDERABLES Performing Organization Address City/State/ZIP Code Phon e Number [place] [id number] Drive (ABNORMAL) Basic Metabolic Panel (non-fasting) (01/08/2019 12:04 AM EDT) athologist Signature Glucose Lvl 121 65 - 199 [facility] mg/dL [facility] Comment: Diabetes: >=200 mg/dL plus symp toms BUN 59 (H) 8 - 18 mg/dL [facility] Creatinine 3.42 (H) 0.70 - 1.20 mg/dL [facility] Sodium 131 (L) 135 - 145 mmol/L [facility] Potassium 4.2 3.5 - 5.0 mmol/L [facility] Comment: Please note: ??Patients with WBC >100,00 0 may have falsely elevated Potassium levels. ??For accurate Potassium quantif ication in these patients send serum separator tube (gold top) for subsequent determinations. ??Contact the Clinical Chemistry Laboratory if there are any qu estions. Chloride 93 (L) 98 - 107 mmol/L [facility] CO2 20 (L) 22 - 31 mmol/L [facility] Anion Gap 18 (H) 5 - 15 mmol/L [facility] Calcium 9.5 8.5 - 10.5 mg/dL [facility] Estimated GFR 13 (L) >=60 mL/min/1.73 m?? [facility] Comment: The eGFR was calculated using the CKD-EP I equation. As with all creatinine based estimates of kidney function, eGFR values calculated with the CKD-EPI equation are not accurate in patients wi th acute kidney failure, extremes of body mass or the acutely ill. [email or web address] eGFR 15 (L) >=60 mL/min/1.73 m?? [facility] Comment: The eGFR was calculated using the CKD-EP I equation. As with all creatinine based estimates of kidney function, eGFR values calculated with the CKD-EPI equation are not accurate in patients wi th acute kidney failure, extremes of body mass or the acutely ill. [email or web address] Specimen Anatomical Collection Method Collection Time Receive d Time (Source) Location / / Volume Laterality Blood specimen 01/08/2019 12:04 9 (specimen) AM EDT 12:13 AM EDT Resulting Agency Comment Spec In Lab Natalia Grover MD CHEMISTRY ORDERABLES Performing Organization Address City/State/[place] [address] EKG 12 Lead (01/07/2019 10:51 PM EDT) Component Value Ref Range Test Analysis Performed Pathologis t Method Time At Signature Ventricular rate 78 BPM MUSE SYSTEM Atrial Rate 78 BPM MUSE SYSTEM P-R Interval 160 ms MUSE SYSTEM QRS Duration 98 ms MUSE SYSTEM Q-T Interval 434 ms MUSE SYSTEM QTC Calculated 494 ms MUSE SYSTEM (Bezet) Calculated P [place] 62 degrees MUSE SYSTEM Calculated R [place] 29 degrees MUSE SYSTEM Calculated T [place] -58 degrees MUSE SYSTEM INTERPRETATION Normal sinus rhythm MUSE SYSTEM Left atrial enlargement Left ventricular hypertrophy with repolarization abnormality Nonspecific ST and T wave abnormality Prolonged QT Abnormal ECG When compared with ECG of 07-JAN-2019 21:27, (unconfirmed) No significant change was found Confirmed by MD Kody, [facility] ([id number]) on 01/08/2019 11:5 7:59 AM Specimen Anatomical Collection Method Collection Time Receive d Time (Source) Location / / Volume Laterality 01/07/2019 10:51 01/08/2019 PM EDT 11:57 AM EDT Shahbaz Wood MD ECG ORDERABLES Performing Organization Address City/State/ZIP Code Phon e Number MUSE SYSTEM Lipase (01/07/2019 9:59 PM EDT) athologist Signature Lipase 27 0 - 60 [facility] unit/L [facility] Specimen Anatomical Collection Method Collection Time Receive d Time (Source) Location / / Volume Laterality Blood specimen Venous Draw / 01/07/2019 9:59 PM 2018 (specimen) Unknown EDT 10:04 PM EDT Resulting Agency Comment Spec In Lab Rolo Solis MD CHEMISTRY ORDERABLES Performing Organization Address City/State/[place] [address] (ABNORMAL) Hepatic Function Panel (01/07/2019 9:59 PM EDT) Analysis Performed At Patho logist Time Signature Total Protein 7.4 6.1 - 8.0 [facility] gm/dL [facility] Albumin 4.1 3.2 - 5.2 [facility] gm/dL [facility] AST Not Perf 0 - 30 [facility] Comment: Called by: victor manuel, Read back by: Smita bach, Date/Time:01/08/19 00:34. Called by: victor manuel, Read back by: Smita bach, Date/Time:01/08/19 00:34. ALT 33 (H) 0 - 30 unit/L [facility] Alk Phos 118 (H) 35 - 105 unit/L [facility] Total Bilirubin 0.7 0.2 - 1.3 mg/dL [facility] Bili, Direct Not Perf 0.0 - 0.3 [facility] Comment: Called by: victor manuel, Read back by: Glory Payne, Date/Time:01/08/19 00:34. Specimen Anatomical Collection Method Collection Time Receive d Time (Source) Location / / Volume Laterality Blood specimen Venous Draw / 01/07/2019 9:59 PM 2018 (specimen) Unknown EDT 10:04 PM EDT Resulting Agency Comment Spec In Lab Rolo Solis MD CHEMISTRY ORDERABLES Performing Organization Address City/[facility]/ZIP Code Phon e Number [address] Blue Tube HOLD (01/07/2019 9:59 PM EDT) P athologist Signature Blue Hold Sample in [facility] LABORATORY Specimen Anatomical Collection Method Collection Time Receive d Time (Source) Location / / Volume Laterality Blood specimen Venous Draw / 01/07/2019 9:59 PM 2018 (specimen) Unknown EDT 10:05 PM EDT Rolo Solis MD HEMATOLOGY ORDERABLES Performing Organization Address City/[facility]/ZIP Code Phon e Number [address] (ABNORMAL) Differential, Automated (01/07/2019 9:59 PM EDT) [facility] gist Method Time Signature Neutrophils % 78.0 % [facility] Neutr Abs (ANC) 7.23 (H) 1.70 - [facility] 6.10 [facility] x10(3)/[facility] LABORATORY Lymphocytes % 11.1 % [facility] Lymphocytes Abs 1.0 0.9 - 3.2 [facility] x10(3)/[facility] LABORATORY Monocytes % 7.1 % [facility] Monocyte Abs 0.7 0.3 - 0.9 [facility] x10(3)/[facility] LABORATORY Eosinophils % 1.9 % [facility] Eosinophils Abs 0.2 0.0 - 0.4 [facility] x10(3)/[facility] LABORATORY Basophils % 0.9 % [facility] Basophils Abs 0.1 0.0 - 0.1 [facility] x10(3)/[facility] LABORATORY Immature Gran % 1.00 % [facility] Comment: Immature granulocytes(IG's)percentage an d absolute count will include metamyelocytes, myelocytes, and promyelo cytes. Blood smears from CBCs yielding IG's will be scanned manually for concor dandorie. If this scan disagrees with the automated IG or if promyelocytes are not ed, a manual differential will be performed. Blanca Gran Abs 0.09 (H) 0.00 - 0.04 x10(3)/[facility] LABORATORY Specimen Anatomical Collection Method Collection Time Receive d Time (Source) Location / / Volume Laterality Blood specimen 01/07/2019 9:59 PM 019 (specimen) EDT 10:04 PM EDT Resulting Agency Comment Spec In Lab Bronson Rodriguez MD HEMATOLOGY ORDERABLES Performing Organization Address City/State/[place] [address] (ABNORMAL) Hemogram (01/07/2019 9:59 PM EDT) Analysis Performed At Patho logist Time Signature WBC 9.3 4.0 - 9.5 [facility] x10(3)/[facility] LABORATORY RBC 4.12 4.00 - [facility] 5.21 [facility] x10(6)/[facility] LABORATORY Hemoglobin 12.6 11.7 - [facility] 15.[facility] gm/dL [facility] Hematocrit 37.0 35.7 - [facility] 45.8 % [facility] MCV 89.8 82.6 - [facility] 94.4 [facility] LABORATORY MCH 30.6 27.1 - [facility] 32.0 pg [facility] MCHC 34.1 31.7 - [facility] 35.0 gm/dL [facility] Platelets 267 145 - 357 [facility] x10(3)/[facility] LABORATORY RDWSD 48.9 (H) 37.0 - [facility] 46.0 [facility] LABORATORY RDWCV 15.2 (H) 11.5 - [facility] 14.1 % [facility] MPV 11.4 7.6 - 12.9 [facility] LABORATORY nRBC % Auto 0.0 % [facility] nRBC Abs Auto 0.000 0.000 - [facility] 0.000 [facility] x10(3)/[facility] LABORATORY Specimen Anatomical Collection Method Collection Time Receive d Time (Source) Location / / Volume Laterality Blood specimen 01/07/2019 9:59 PM 019 (specimen) EDT 10:04 PM EDT Resulting Agency Comment Spec In Lab Bronson Rodriguez MD HEMATOLOGY ORDERABLES Performing Organization Address City/State/[place] [address] Troponin (01/07/2019 9:59 PM EDT) athologist Signature Troponin-T Not Perf 0.00 - [facility] 0.00 [facility] Comment: Unable to quantitate due [...] meets the diagnosis for a myocardial infarction (CA). Detection of a rise and/or fall of [...] additional sample may be indicated. Reference: Third Cambridge Definition of Myocardial Infarction. Journal of the [place] [employer] 2012;60:1581-98 Specimen Anatomical Collection Method Collection Time Receive d Time (Source) Location / / Volume Laterality Blood specimen 01/07/2019 9:59 PM 019 (specimen) EDT 10:04 PM EDT Resulting Agency Comment Spec In Lab Natalia Grover MD CHEMISTRY ORDERABLES Performing Organization Address City/State/[place] [address] (ABNORMAL) Basic Metabolic Panel (non-fasting) (01/07/2019 9:59 PM EDT) athologist Signature Glucose Lvl 121 65 - 199 [facility] mg/dL [facility] Comment: Diabetes: >=200 mg/dL plus symp toms BUN 61 (H) 8 - 18 mg/dL [facility] Creatinine 3.68 (H) 0.70 - 1.20 mg/dL [facility] Sodium 131 (L) 135 - 145 mmol/L [facility] Potassium Not Perf 3.5 - 5.0 [facility] Comment: Unable to quantitate [...] Chloride 92 (L) 98 - 107 mmol/L [facility] CO2 18 (L) 22 - 31 mmol/L [facility] Anion Gap 21 (H) 5 - 15 mmol/L [facility] Calcium 9.4 8.5 - 10.5 mg/dL [facility] Estimated GFR 12 (L) >=60 mL/min/1.73 m?? [facility] Comment: The eGFR was calculated using the CKD-EP I equation. As with all creatinine based estimates of kidney function, eGFR values calculated with the CKD-EPI equation are not accurate in patients wi th acute kidney failure, extremes of body mass or the acutely ill. http://built.io/DHnkf eGFR 14 (L) >=60 mL/min/1.73 m?? [facility] Comment: The eGFR was calculated using the CKD-EP I equation. As with all creatinine based estimates of kidney function, eGFR values calculated with the CKD-EPI equation are not accurate in patients wi th acute kidney failure, extremes of body mass or the acutely ill. http://built.io/DHMCnkf Specimen Anatomical Collection Method Collection Time Receive d Time (Source) Location / / Volume Laterality Blood specimen 01/07/2019 9:59 PM 019 (specimen) EDT 10:04 PM EDT Resulting Agency Comment Spec In Lab Natalia Grover MD CHEMISTRY ORDERABLES Performing Organization Address City/[facility] [place] [address] EKG 12 Lead (01/07/2019 9:27 PM EDT) Component Value Ref Range Test Analysis Performed Pathologis t Method Time At Signature Ventricular rate 77 BPM MUSE SYSTEM Atrial Rate 77 BPM MUSE SYSTEM P-R Interval 160 ms MUSE SYSTEM QRS Duration 102 ms MUSE SYSTEM Q-T Interval 446 ms MUSE SYSTEM QTC Calculated 504 ms MUSE SYSTEM (Bezet) Calculated P [place] 59 degrees MUSE SYSTEM Calculated R [place] 29 degrees MUSE SYSTEM Calculated T [place] -146 degrees MUSE SYSTEM INTERPRETATION Normal sinus rhythm MUSE SYSTEM Left atrial enlargement Left ventricular hypertrophy with repolarization abnormality Nonspecific ST abnormality Prolonged QT Abnormal ECG When compared with ECG of 02-OCT-2018 22:54, non-diagnostic ??ST elevation now present in Anterior leads Confirmed by MD Kody, Rashaun ([id number]) on 01/08/2019 11:5 7:12 AM Specimen Anatomical Collection Method Collection Time Receive d Time (Source) Location / / Volume Laterality 01/07/2019 9:27 PM 9 EDT 11:57 AM EDT Natalia Grover MD ECG ORDERABLES Performing Organization Address City/[facility]/ZIP [facility] Phon e Number MUSE SYSTEM documented in this encounter Visit Diagnoses Not on filedocumented in this encounter Admitting Diagnoses Diagnosis Chest [...] Oral, 3 TIMES DAILY PRN, Starting on Thu01/11/19 at 2117, Until Cinthia 01/20/19 at 1658, Heartburn, Routine amLODIPine (NORVASC) tablet 10 mg Given 01/20/2019 9:17 AM EDT 10 mg 10 mg, Oral, DAILY, First dose (after last modification) on Thu01/09/19 at 0900, Until Discontinued, Routine Given 01/19/2019 8:42 AM EDT 10 mg Given 01/18/2019 8:48 AM EDT 10 mg aspirin EC tablet 81 mg Given 01/20/2019 9:14 AM EDT 81 mg 81 mg, Oral, DAILY, First dose on [facility] 01/08/19 at 1200, Until Discontinued, Routine Given [...] 20 mg bisacodyl (DULCOLAX) suppository 10 mg 10 mg, Rectal, DAILY PRN, Starting on Thu01/15/19 at 2 158, Until Cinthia 01/20/19 at [...] Given 01/19/2019 8:43 AM EDT 12.5 mg docusate sodium (COLACE) capsule 100 mg Given 01/20/2019 9:15 AM EDT 100 mg 100 mg, Oral, 2 TIMES DAILY, First dose on Thu01/14/19 at 0930, Until Discontinued, Routine Given 01/19/2019 8:49 PM EDT 100 mg Given 01/19/2019 8:43 AM EDT 100 mg gabapentin (NEURONTIN) capsule 200 mg Given 01/19/2019 8:49 PM EDT 200 mg 200 mg, Oral, NIGHTLY, First dose on Thu01/08/19 at 2100, Until Discontinued, Routine Given 01/18/2019 8:56 PM EDT 200 mg Given 01/17/2019 9:22 PM EDT 200 mg heparin (Porcine) subcutaneous injection Given 019 9:17 AM EDT 5,000 Units 5,000 Units 5,000 Units, Subcutaneous, EVERY 12 HOURS SCHEDULED (2 times per day), First dose on Thu01/12/19 at 1130, Until Discontinued, Routine Given 01/19/2019 8:50 PM EDT 5,000 Units Given 01/19/2019 8:42 AM EDT 5,000 Units hydrALAZINE (APRESOLINE) tablet 25 mg Given 01/20/2019 9:15 AM EDT 25 mg 25 mg, Oral, 3 TIMES DAILY, First dose (after last modification) on Thu01/20/19 at 0900, Until Discontinued, Take with Food Hold for SBP under 90 or HR under 50., Routine isosorbide dinitrate (ISORDIL) tablet 20 mg Given 01/20/2019 12:14 PM EDT 20 mg 20 mg, Oral, 3 TIMES DAILY, First dose (after last modification) on Thu01/20/19 at 1100, Until Discontinued, Routine levothyroxine (SYNTHROID) tablet 75 mcg Given 01/20/2019 5:55 AM EDT 75 mcg 75 mcg, Oral, DAILY, First dose (after last modification) on Thu01/10/19 at 0600, Until Discontinued, Routine Given 01/19/2019 5:19 AM EDT 75 mcg Given 01/18/2019 5:57 AM EDT 75 mcg pantoprazole (PROTONIX) tablet 20 mg Given 01/20/2019 9:17 AM EDT 20 mg 20 mg, Oral, DAILY, First dose on 01/08/19 at 0915, Until Discontinued, DO NOT CRUSH OR OPEN, Routine Given 01/19/2019 8:43 AM EDT 20 mg Given 01/18/2019 8:53 AM EDT 20 mg polyethylene glycol (MIRALAX) packet 17 g Given 01/18/2019 8:57 PM EDT 17 g 17 g, Oral, 2 TIMES DAILY, First dose on 01/15/19 at 2215, Until Discontinued, Routine Given 01/16/2019 9:32 PM EDT 17 g Given 01/16/2019 8:20 AM EDT 17 g senna (SENOKOT) tablet 8.6 mg Given 01/20/2019 [...] Given 01/19/2019 10:21 AM EDT 5 mLs documented in this encounter Active and Recently [...] TIMES DAILY WITH MEALS, First dose on 01/17/19 at 1715, Until Discontinued, Hold [...] 200 mg, Oral, NIGHTLY, First dose on 01/08/19 at 2100, Until Discontinued, Routine heparin (Porcine) [...] 3 TIMES DAILY, First dose o n Thu01/19/19 at 0900, Until Discontinued, Take with Food Hold for SBP under 90 or HR under 50., Routine hydrALAZINE (APRESOLINE) tablet 25 mg 0915 (Given - Provider: Louisa Miller RN) 25 mg, Oral, 3 TIMES DAILY, First dose o n Thu01/20/19 at 0900, Until Discontinued, Take with Food Hold for SBP under 90 or HR under 50., Routine isosorbide dinitrate (ISORDIL) tablet 10 mg (CANCELED) 0853 (Given - Provider: Myrna Almaguer RN)1615 (Given - Provider: Myrna Almaguer RN) 0519 (Given - Provider: Leah Shetty RN)1020 (Given - Provider: Myrna Almaguer RN)1608 (Given - Provider: Myrna Almaguer RN) 0555 (Given - Provider: Leah Shetty RN) 10 mg, Oral, 3 TIMES DAILY, First dose o n Thu01/18/19 at 0830, Until Discontinued, Routine isosorbide dinitrate (ISORDIL) tablet 20 mg 1214 (Given - Provider: Louisa Miller RN) 20 mg, Oral, 3 TIMES DAILY, First dose o n Thu01/20/19 at 1100, Until Discontinued, Routine levothyroxine (SYNTHROID) tablet 75 mcg 0557 (Given - Provider: Gadiel Padilla RN) 0519 (Given - Provider: Leah Shetty RN) 0555 (Given - Provider: Leah [...] Routine polyethylene glycol (MIRALAX) packet 17 g 899 (Not Gi mehran - Provider: Myrna Almaguer RN - Reason: Patient/family refused)2056 (Given - Provider: Leah Shetty, [place]) 0900 (Not Given - Provider: Myrna Almaguer [...] RN) 40 mEq, Oral, ONCE, 1 dose, Thu01/18/19 at 0900, Routine senna (SENOKOT) tablet 8.6 mg 0848 (Given - Provider: Myrna Almaguer RN) 0842 (Given - Provider: Myrna Almaguer, [place]WR[place]) 091 4 (Given - Provider: Louisa Miller, [place]) 8.6 mg, Oral, DAILY, First dose on Sat at 2215, Until Discontinued, Routine sodium chloride 0.9 % (flush) flush 5 mL 0848 (Given - Provider: Myrna Almaguer RN)2056 (Given - Provider: Leah Shetty RN) 1021 (Given - Provider: Myrna Almaguer RN)2049 (Given - Provider: Leah Shetty, [place]) 0900 (Given - Provider: Krish Gutiérrez) 5 [...] dose, Starting e 01/18/19 at 1313, Until Thu01/18/19 at 1225, Per Protocol, Routine lidocaine (XYLOCAINE) [...] Routine documented in this encounter Care 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
--- OUTSIDE RECORDS SUMMARY | 2022-02-22 23:34 | XMS_ITS | Encounter Summary ---
:1950 Author Organization [facility] [place] [address] Care Team Providers Name Role Phone Sanjuanita Lee MD Primary Care Provider Encounter Details Date Type Department Care Team Description 01/07/2019 External Results Patient Placement Gerard Bo MD [facility] [place] [address] CARDIOLOGY DEPT [phone] [place] [address] (Wo rk) Social History Tobacco Use Types [...] Name Priority Date/Time Associated Diagnosis Comme nts ECG SCAN Routine 01/07/2019 Results for thi s procedure are in the resu lts section. documented in this encounter Results Scan Doc: ECG (01/07/2019) Narrative This result has an attachment that is no t available. Gerard Bo MD MEDIA MGR SCAN EXT ORDR/RSLT documented in this encounter Visit Diagnoses Not on filedocumented in this encounter Care Teams Conciliator Relationship Specialty Start Date End Date Sanjuanita Lee MD PCP - General 03/05/13 12/23/[address] [place] [address] documented as of this encounter
--- OUTSIDE RECORDS SUMMARY | 2022-02-22 23:34 | XMS_ITS | Encounter Summary ---
:1950 [place] [address] Care Team Providers Name Role Phone Sanjuanita Lee MD Primary Care Provider Encounter Details Date Type Department Care Team Description 01/07/2019 Ancillary Procedure Radiology Library at [facility], Robbie Holder, [facility] [place] [address] [address] VASCULAR SURGERY [phone] [place] [address] (Wo rk) Social History Tobacco Use Types [...] Associated Diagnosis Comme nts FILM LIBRARY Routine 01/07/2019 6:35 PM Results f or this STORAGE ONLY CT EDT procedure ar e in CHEST ABDOMEN the results PELVIS section. documented in this encounter Results Film Library- Storage Only CT Chest Abdomen Pelvis (01/07/2019 6:35 PM EDT) Specimen (Source) Anatomical Location Collection Method / Collectio n Time Received Time / Laterality Volume Narrative RAD - 01/07/2019 6:35 PM EDT This exam is auto-finalizing. It's purpo se is for storage only. Regan Trevizo MD IMAmanda FILM LIBRARY ORDERABLES Performing Organization Address City/State/ZIP Code Phon e Number [place], [place] documented in this encounter Visit Diagnoses Not on filedocumented in this encounter Care Teams Asbestos Coverer Relationship Specialty Start Date End Date Sanjuanita Lee MD PCP - General 03/05/13 12/23/[address] [place] [address] documented as of this encounter
--- OUTSIDE RECORDS SUMMARY | 2022-02-22 23:34 | XMS_ITS | Encounter Summary ---
:1950 Author Organization [facility] [place] [address] Care Team Providers Name Role Phone Sanjuanita Lee MD Primary Care Provider Encounter Details Date Type Department Care Team Description 01/04/2019 Laboratory Appointment Lab 3L [facility] CKD (chronic kidney [facility] disease) stage 4, GFR [facility] 15-29 ml/ [place] [id number] Social History Tobacco Use Types Packs/Day Years [...] Date/Time Associated Comments Diagnosis HC PARATHYROID Routine 01/04/2019 12:52 CKD (chronic kidney Re sults for this HORMONE(PTH INTACT PM EDT disease) stage 4, proc edure are in GFR 15-29 ml/min the results section. HEMOGRAM Routine 01/04/2019 12:52 CKD (chronic kidney Resu lts for this PM EDT disease) stage 4, procedure are in GFR 15-29 ml/min the results section. DIFFERENTIAL, Routine 01/04/2019 12:52 CKD (chronic kidney Res ults for this AUTOMATED PM EDT disease) stage 4, procedure are in GFR 15-29 ml/min the results section. HC CBC,PLT & AUTO Routine 01/04/2019 12:52 CKD (chronic kidney DIFF PM EDT disease) stage 4, GFR 15-29 ml/min HC URIC ACID, SERUM Routine 01/04/2019 12:52 CKD (chronic kidn ey Results for this PM EDT disease) stage 4, procedure are in GFR 15-29 ml/min the results section. HC PHOSPHORUS, SERUM Routine 01/04/2019 12:52 CKD (chronic kid liza Results for this PM EDT disease) stage 4, procedure are in GFR 15-29 ml/min the results section. HC ALBUMIN, SERUM Routine 01/04/2019 12:52 CKD (chronic kidney Results for this PM EDT disease) stage 4, procedure are in GFR 15-29 ml/min the results section. BASIC METABOLIC PANEL Routine 01/04/2019 12:52 CKD (chronic ki dney Results for this (NON-FASTING) PM EDT disease) stage 4, procedure are in GFR 15-29 ml/min the results section. documented in this encounter Results (ABNORMAL) Differential, Automated (01/04/2019 12:52 PM EDT) [facility] gist Method Time Signature Neutrophils % 72.7 % [facility] Neutr Abs (ANC) 7.43 (H) 1.70 - [facility] 6.10 [facility] x10(3)/[facility] L LABORATORY Lymphocytes % 10.3 % [facility] Lymphocytes Abs 1.0 0.9 - 3.[address] [facility] x10(3)/[facility] LABORATORY Monocytes % 9.7 % [facility] Monocyte Abs 1.0 (H) 0.3 - 0.[address] [facility] x10(3)/[facility] LABORATORY Eosinophils % 5.9 % [facility] Eosinophils Abs 0.6 (H) 0.0 - 0.[address] [facility] x10(3)/[facility] LABORATORY Basophils % 1.1 % [facility] Basophils Abs 0.1 0.0 - 0.[address] [facility] x10(3)/[facility] LABORATORY Immature Gran % 0.30 % [facility] Comment: Immature granulocytes(IG's)percentage an d absolute count will include metamyelocytes, myelocytes, and promyelo cytes. Blood smears from CBCs yielding IG's will be scanned manually for concor dance. If this scan disagrees with the automated IG or if promyelocytes are not ed, a manual differential will be performed. Blanca Gran Abs 0.03 0.00 - 0.04 x10(3)/[facility] MAR Y [facility] LABOR[facility]ORY Specimen Anatomical Collection Method Collection Time Receive d Time (Source) Location / / Volume Laterality Blood specimen 01/04/2019 12:52 9 1:05 (specimen) PM EDT PM EDT Resulting Agency Comment Spec In Lab Champ ENGLE HEMATOLOGY ORDERABLES Performing Organization Address City/State/ZIP Code [place] [address] (ABNORMAL) Hemogram (01/04/2019 12:52 PM EDT) Analysis Performed At Patho logist Time Signature WBC 10.2 (H) 4.0 - 9.[address] [facility] x10(3)/[facility] LABORATORY RBC 3.70 (L) 4.00 - [facility] 5.21 [facility] x10(6)/[facility] LABORATORY Hemoglobin 11.2 (L) 11.7 - [facility] 15.5 gm/dL [facility] Hematocrit 32.4 (L) 35.7 - [place] 45.8 % [facility] MCV 87.6 82.6 - [facility] 94.4 fL [facility] MCH 30.3 27.1 - [place] 32.0 pg [facility] MCHC 34.6 31.7 - [facility] 35.0 gm/dL [facility] Platelets 249 145 - 357 [facility] x10(3)/[facility] LABORATORY RDWSD 45.8 37.0 - [place] 46.0 [facility] LABORATORY RDWCV 14.4 (H) 11.5 - [place] 14.1 % [facility] MPV 10.9 7.6 - 12.9 [place] [facility] LABORATORY nRBC % Auto 0.0 % [facility] nRBC Abs Auto 0.000 0.000 - [place] 0.000 [facility] x10(3)/[facility] LABORATORY Specimen Anatomical Collection Method Collection Time Receive d Time (Source) Location / / Volume Laterality Blood specimen 01/04/2019 12:52 9 1:05 (specimen) PM EDT PM EDT Resulting Agency Comment Spec In Lab Champ ENGLE HEMATOLOGY ORDERABLES Performing Organization Address [facility]/ZIP [facility] [place] [address] PTH (01/04/2019 12:52 PM EDT) P athologist Signature PTH 47 15 - 65 [place] pg/mL [facility] Specimen Anatomical Collection Method Collection Time Receive d Time (Source) Location / / Volume Laterality Blood specimen 01/04/2019 12:52 9 1:05 (specimen) PM EDT PM EDT Resulting Agency Comment Spec In Lab Candida Adair MD CHEMISTRY ORDERABLES Performing Organization Address City/[facility]/[place] [address] (ABNORMAL) Uric acid (01/04/2019 12:52 PM EDT) P athologist Signature Uric Acid 8.0 (H) 2.5 - 6.5 [place] mg/dL [facility] Specimen Anatomical Collection Method Collection Time Receive d Time (Source) Location / / Volume Laterality Blood specimen 01/04/2019 12:52 9 1:05 (specimen) PM EDT PM EDT Resulting Agency Comment Spec In Lab Candida Adair MD CHEMISTRY ORDERABLES Performing Organization Address City/State/[place] [address] Albumin Level (01/04/2019 12:52 PM EDT) athologist Signature Albumin 3.8 3.2 - 5.[address] [facility] Specimen Anatomical Collection Method Collection Time Receive d Time (Source) Location / / Volume Laterality Blood specimen 01/04/2019 12:52 9 1:05 (specimen) PM EDT PM EDT Resulting Agency Comment Spec In Lab Candida Adair MD CHEMISTRY ORDERABLES Performing Organization Address City/State/ZIP Code Phon e Number [address] Phosphorus (01/04/2019 12:52 PM EDT) athologist Signature Phosphorus 4.0 2.5 - 4.5 [facility] mg/dL [facility] Specimen Anatomical Collection Method Collection Time Receive d Time (Source) Location / / Volume Laterality Blood specimen 01/04/2019 12:52 9 1:05 (specimen) PM EDT PM EDT Resulting Agency Comment Spec In Lab Candida Adair MD CHEMISTRY ORDERABLES Performing Organization Address City/[facility]/[place] [address] (ABNORMAL) Basic Metabolic Panel (non-fasting) (01/04/2019 12:52 PM EDT) athologist Signature Glucose Lvl 114 65 - [address] [facility] mg/dL [facility] Comment: Diabetes: >=200 mg/dL plus symp toms BUN 44 (H) 8 - 18 mg/dL [facility] Creatinine 3.11 (H) 0.70 - 1.20 mg/dL [facility] LABORATORY Sodium 133 (L) 135 - 145 mmol/L [facility] Potassium 3.6 3.5 - 5.0 mmol/L [facility] Comment: Please note: ??Patients with WBC >100,00 0 may have falsely elevated Potassium levels. ??For accurate Potassium quantif ication in these patients send serum separator tube (gold top) for subsequent determinations. ??Contact the Clinical Chemistry Laboratory if there are any qu estions. Chloride 95 (L) 98 - 107 mmol/L [facility] CO2 21 (L) 22 - 31 mmol/L [facility] Anion Gap 17 (H) 5 - 15 mmol/L [facility] Calcium 9.7 8.5 - 10.5 mg/dL [facility] Estimated GFR 14 (L) >=60 mL/min/1.73 m?? [facility] Comment: The eGFR was calculated using the CKD-EP I equation. As with all creatinine based estimates of kidney function, eGFR values calculated with the CKD-EPI equation are not accurate in patients wi th acute kidney failure, extremes of body mass or the acutely ill. [email or web address] eGFR 17 (L) >=60 mL/min/1.73 m?? [facility] Comment: The eGFR was calculated using the CKD-EP I equation. As with all creatinine based estimates of kidney function, eGFR values calculated with the CKD-EPI equation are not accurate in patients wi th acute kidney failure, extremes of body mass or the acutely ill. http://Kismet/DHMCnkf Specimen Anatomical Collection Method Collection Time Receive d Time (Source) Location / / Volume Laterality Blood specimen 01/04/2019 12:52 9 1:05 (specimen) PM EDT PM EDT Resulting Agency Comment Spec In Lab Candida Adair MD CHEMISTRY ORDERABLES Performing Organization Address City/State/ZIP Code [place] [address] documented in this encounter Visit Diagnoses Diagnosis CKD (chronic kidney disease) stage 4, GF R 15-29 ml/min Chronic kidney disease, Stage IV (severe ) documented in this encounter Care Teams Pneumatic Tube Repairer Relationship Specialty Start Date End Date Sanjuanita Lee MD PCP - General 03/05/13 12/23/[address] [place] [address] documented as of this encounter
--- OUTSIDE RECORDS SUMMARY | 2022-02-22 23:34 | XMS_ITS | Encounter Summary ---
:1950 Author Organization [facility] [place] [address] Care Team Providers Name Role Phone Sanjuanita Lee MD Primary Care Provider Encounter Details Date Type Department Care Team Description 12/20/2018 Notes Only Nephrology Mainor Doyle MD [facility] [place] [address] NEPHROLOGY DEPT. [phone] [place] [id number] (Wo rk) Social History Tobacco Use Types [...] documented as of this encounter Progress Notes Mainor Doyle MD - 12/20/2018 10:14 PM EDT Call through transfer center from patients that yesterday all her medications were stopped because of hypotension, today the patient has BP in the 180 range, patient is apparently asymptomatic Discussed medications with : Restart: Labetalol, Levothyroxine, Atorvastatin, Isorbide, Gabapentin Hold: Terazosin, Amlodipine, Furosemide documented in this encounter Plan of Treatment Scheduled Procedures Name Priority Associated Diagnoses Date/Time EGD, UPPER GI ENDOSCOPY Gastroesophageal reflux disease, esophagitis presence not specifi ed documented as of this encounter Visit Diagnoses Not on filedocumented in this encounter Care Teams Hops Farmworker Relationship Specialty Start Date End Date Sanjuanita Lee MD PCP - General 03/05/13 12/23/[address] [place] [address] documented as of this encounter
--- OUTSIDE RECORDS SUMMARY | 2022-02-22 23:34 | XMS_ITS | Encounter Summary ---
:1950 [place] [address] Care Team Providers Name Role Phone Sanjuanita Lee MD Primary Care Provider Encounter Details Date Type Department Care Team Description 2018 Tech Visit Vascular Lab at [facility] nal artery stenosis, [place] [address] Social History Tobacco Use Types Packs/Day [...] Name Priority Date/Time Associated Diagnosis Comme nts RENAL ARTERY Routine 2018 9:18 AM Renal artery Results f or this DUPLEX, UNIL EDT stenosis, [place] procedure a re in the results section. documented in this encounter Results Renal Artery Duplex, Unil (2018 9:18 AM EDT) Component Value Ref Test Analysis Performed At [facility] Method Time Signature VB Text Department: [facility] Report Patient: [id number] (CHARLENE HARMON) CPT: 52722 ICD10: I70.1;I77.1 Referring Physician: UNIQUE BRAVO ?? Indications: 68 year old female with AAA, s/p RIGHT iliac to RIGHT kidney bypass graft, ? patency/stenosis of graft and kidney perfusi on ICD10 Diagnosis Code: I70.1 Findings: Unilateral ?PSV (cm/s) ??EDV (cm/s) ?RI ?? Syl Renal Aorta ?70 ?17 ??0.76 ?? Right ?PSV (cm/s) ??EDV (cm/s) ?RI ??Length (cm) ??Patent ?? Renal Artery Distal ?59 ? 8 ??0.86 ? Mid Pole Renal Parenchyma ?11 ? 4 ??0.60 ? Kidney Length ?9.7 ? Renal Vein ?Patent ?? Right Abdominal Graft, Inflow Artery ? PSV (cm/s): 248 ? EDV (cm/s): 0 ? RI: 1.00 ? Location: Com Iliac Right Abdominal Graft, Proximal Anastomosis ? PSV (cm/s): 96 ? EDV (cm/s): 8 ? RI: 0.92 ? Location: Com Iliac Right Abdominal Graft, Proximal ? PSV (cm/s): 164 ? EDV (cm/s): 12 ? RI: 0.93 Right Abdominal Graft, Mid ? PSV (cm/s): 44 ? EDV (cm/s): 9 ? RI: 0.81 Right Abdominal Graft, Distal ? PSV (cm/s): 34 ? EDV (cm/s): 5 ? RI: 0.86 Right Abdominal Graft, Distal Anastomosis ? PSV (cm/s): 46 ? EDV (cm/s): 9 ? RI: 0.81 ? Location: Renal Right Abdominal Graft, Outflow Artery ? PSV (cm/s): 58 ? EDV (cm/s): 10 ? RI: 0.83 ? Location: Renal Interpretation: RIGHT: Patent iliac to renal artery bypa ss graft with elevated velocities (PSV 248 cm/s) in the iliac arter y inflow. No stenosis noted through the graft with a note of lower velocities in the mid and distal segments of the graft (PSV 34-46 cm/s). Patent renal vein. Patent abdominal aorta with an infra-renal aneurysm measuring approximately 3.6 x 3.9 cm in diameter. Mural thrombus noted through the aneur ysm sac. Previous exam was limited, the graft was not visualized. Electronically Signed by: UNIQUE BRAVO on 2018 07:58 :34 PM VB Text End of Report [facility] Report Specimen (Source) Anatomical Collection Method Collection Time Re ceived Time Location / / Volume Laterality 2018 9:18 AM EDT Unique Bravo MD VASCULAR ORDERABLES Performing Organization Address City/State/ZIP Code Phon e Number [facility] documented in this encounter Visit Diagnoses Diagnosis Renal artery stenosis, [place] Atherosclerosis of renal artery documented in this encounter Care Teams Shuttle Truck Driver Relationship Specialty Start Date End Date Sanjuanita Lee MD PCP - General 03/05/13 12/23/[address] [place] [address] documented as of this encounter
--- OUTSIDE RECORDS SUMMARY | 2022-02-22 23:34 | XMS_ITS | Encounter Summary ---
:1950 Author Organization [facility] [place] [address] Care Team Providers Name Role Phone Sanjuanita Lee MD Primary Care Provider Encounter Details Date Type Department Care Team Description 2018 Laboratory Appointment Lab 3L [facility] Creatinine elevation; [facility] CKD (chronic kidney disease) stage 3, GFR 30-59 ml/[place] [id number] Social History Tobacco Use Types Packs/Day Years [...] Procedure Name Priority Date/Time Associated Comments Diagnosis PTH Routine 2018 12:26 PM CKD (chronic kidney R esults for this EDT disease) stage 3, procedure are in GFR 30-59 ml/min the results section. HEMOGRAM Routine 2018 12:26 PM CKD (chronic kidney R esults for this EDT disease) stage 3, procedure are in GFR 30-59 ml/min the results section. DIFFERENTIAL, Routine 2018 12:26 PM CKD (chronic kidney Results for this AUTOMATED EDT disease) stage 3, procedure are in GFR 30-59 ml/min the results section. CBC (WITH DIFF) Routine 2018 12:26 PM CKD (chronic kidne y EDT disease) stage 3, GFR 30-59 ml/min PHOSPHORUS Routine 2018 12:26 PM CKD (chronic kidney R esults for this EDT disease) stage 3, procedure are in GFR 30-59 ml/min the results section. BASIC METABOLIC Routine 2018 12:26 PM Creatinine Resul ts for this PANEL (NON-FASTING) EDT elevation procedur e are in the results section. documented in this encounter Results (ABNORMAL) Differential, Automated (2018 12:26 PM EDT) [facility] gist Method Time Signature Neutrophils % 55.2 % [facility] Neutr Abs (ANC) 4.05 1.70 - [facility] 6.10 [facility] x10(3)/[facility] LABORATORY Lymphocytes % 20.4 % [facility] Lymphocytes Abs 1.5 0.9 - 3.2 [facility] x10(3)/[facility] [place] [facility] LABORATORY Monocytes % 11.2 % [facility] Monocyte Abs 0.8 0.3 - 0.9 [facility] x10(3)/[facility] [place] [facility] LABORATORY Eosinophils % 11.3 % [facility] Eosinophils Abs 0.8 (H) 0.0 - 0.4 [facility] x10(3)/[facility] [place] [facility] LABORATORY Basophils % 1.6 % [facility] Basophils Abs 0.1 0.0 - 0.1 [facility] x10(3)/[facility] [place] [facility] LABORATORY Immature Gran % 0.30 % [facility] Comment: Immature granulocytes(IG's)percentage an d absolute count will include metamyelocytes, myelocytes, and promyelo cytes. Blood smears from CBCs yielding IG's will be scanned manually for kevyn bowen. If this scan disagrees with the automated IG or if promyelocytes are not ed, a manual differential will be performed. Blanca Gran Abs 0.02 0.00 - 0.04 x10(3)/[facility] Specimen Anatomical Collection Method Collection Time Receive d Time (Source) Location / / Volume Laterality Blood specimen 2018 12:26 9 (specimen) PM EDT 12:46 PM EDT Resulting Agency Comment Spec In Lab Champ ENGLE HEMATOLOGY ORDERABLES Performing Organization Address City/State/[place] [address] (ABNORMAL) Hemogram (2018 12:26 PM EDT) Analysis Performed At Patho logist Time Signature WBC 7.3 4.0 - 9.5 [facility] x10(3)/[facility] [place] [facility] LABORATORY RBC 3.28 (L) 4.00 - [facility] 5.21 [facility] x10(6)/[facility] LABORATORY Hemoglobin 10.2 (L) 11.7 - [facility] 15.5 gm/dL [facility] Hematocrit 30.7 (L) 35.7 - [facility] 45.8 % [facility] MCV 93.6 82.6 - [facility] 94.4 [facility] LABORATORY MCH 31.1 27.1 - [facility] 32.0 pg [facility] MCHC 33.2 31.7 - [facility] 35.0 gm/dL [facility] Platelets 297 145 - 357 [facility] x10(3)/[facility] [place] [facility] LABORATORY RDWSD 57.7 (H) 37.0 - [facility] 46.0 [facility] LABORATORY RDWCV 16.7 (H) 11.5 - [facility] 14.1 % [facility] MPV 10.7 7.6 - 12.9 [facility] LABORATORY nRBC % Auto 0.0 % [facility] nRBC Abs Auto 0.000 0.000 - [facility] 0.000 [facility] x10(3)/[facility] LABORATORY Specimen Anatomical Collection Method Collection Time Receive d Time (Source) Location / / Volume Laterality Blood specimen 2018 12:26 9 (specimen) PM EDT 12:46 PM EDT Resulting Agency Comment Spec In Lab Champ ENGLE HEMATOLOGY ORDERABLES Performing Organization Address City/[facility]/ZIP Code Phon e Number [address] Phosphorus (2018 12:26 PM EDT) athologist Signature Phosphorus 4.2 2.5 - 4.5 [facility] mg/dL [facility] Specimen Anatomical Collection Method Collection Time Receive d Time (Source) Location / / Volume Laterality Blood specimen 2018 12:26 9 (specimen) PM EDT 12:46 PM EDT Resulting Agency Comment Spec In Lab Brady Gallo MD CHEMISTRY ORDERABLES Performing Organization Address City/[facility]/ZIP Code Phon e Number [address] (ABNORMAL) PTH (2018 12:26 PM EDT) athologist Signature PTH 68 (H) 15 - 65 [facility] pg/mL [facility] Specimen Anatomical Collection Method Collection Time Receive d Time (Source) Location / / Volume Laterality Blood specimen 2018 12:26 9 (specimen) PM EDT 12:46 PM EDT Resulting Agency Comment Spec In Lab Brady Gallo MD CHEMISTRY ORDERABLES Performing Organization Address City/State/[place] [address] (ABNORMAL) Basic Metabolic Panel (non-fasting) (2018 12:26 PM EDT) P athologist Signature Glucose Lvl 121 65 - 199 [facility] mg/dL [facility] Comment: Diabetes: >=200 mg/dL plus symp toms BUN 33 (H) 8 - 18 mg/dL [facility] Creatinine 2.72 (H) 0.70 - 1.20 mg/dL [facility] Sodium 140 135 - 145 mmol/L [facility] Potassium 3.7 3.5 - 5.0 mmol/L [facility] Comment: Please note: ??Patients with WBC >100,00 0 may have falsely elevated Potassium levels. ??For accurate Potassium quantif ication in these patients send serum separator tube (gold top) for subsequent determinations. ??Contact the Clinical Chemistry Laboratory if there are any qu estions. Chloride 105 98 - 107 mmol/L [facility] CO2 19 (L) 22 - 31 mmol/L [facility] Anion Gap 16 (H) 5 - 15 mmol/L [facility] Calcium 9.5 8.5 - 10.5 mg/dL [facility] Estimated GFR 17 (L) >=60 mL/min/1.73 m?? [facility] Comment: The eGFR was calculated using the CKD-EP I equation. As with all creatinine based estimates of kidney function, eGFR values calculated with the CKD-EPI equation are not accurate in patients wi th acute kidney failure, extremes of body mass or the acutely ill. [email or web address] eGFR 20 (L) >=60 mL/min/1.73 m?? [facility] Comment: The eGFR was calculated using the CKD-EP I equation. As with all creatinine based estimates of kidney function, eGFR values calculated with the CKD-EPI equation are not accurate in patients wi th acute kidney failure, extremes of body mass or the acutely ill. [email or web address] Specimen Anatomical Collection Method Collection Time Receive d Time (Source) Location / / Volume Laterality Blood specimen 2018 12:26 9 (specimen) PM EDT 12:46 PM EDT Resulting Agency Comment Spec In Lab Tyron Kemp MD CHEMISTRY ORDERABLES Performing Organization Address City/State/[place] [address] documented in this encounter Visit Diagnoses Diagnosis Creatinine elevation Other nonspecific findings on examinatio n of blood CKD (chronic kidney disease) stage 3, GF R 30-59 ml/min Chronic kidney disease, Stage III (moder ate) documented in this encounter Care Teams Director Outpatient Services Relationship Specialty Start Date End Date Sanjuanita Lee MD PCP - General 03/05/13 12/23/[address] [place] [address] documented as of this encounter
--- OUTSIDE RECORDS SUMMARY | 2022-02-22 23:34 | XMS_ITS | Encounter Summary ---
:1950 Author Organization [facility] [place] [address] Care Team Providers Name Role Phone Sanjuanita Lee MD Primary Care Provider Encounter Details Date Type Department Care Team Description 12/16/2018 Office Visit Gastroenterology at [facility] Joceline Monroe Gastroesophageal reflux dise ase, esophagitis presence not specified (Primary Dx); [facility] Jennifer Alexander [place] [address] [facility] [phone] [place] [address] Social History Tobacco Use Types Packs/Day Years [...] Sign Reading Time Taken Comments Blood Pressure 120/54 12/16/2018 11:15 AM EDT Pulse 57 12/16/2018 11:15 AM EDT Temperature - - Respiratory Rate - - Oxygen Saturation - - Inhaled Oxygen Concentration - - Weight 38.1 kg (84 lb 1.6 oz) 12/16/2018 11:15 AM EDT Height 152.4 cm (5') 12/16/2018 11:15 AM EDT Body Mass Index 16.42 12/16/2018 11:15 AM EDT documented in this encounter Progress Notes Joceline Monroe MD - 12/16/2018 11:00 AM EDT [facility] Department of Gastroenterology Outpatient Clinic Note ID: 68-year old female with chronic hepatitis B treated with lamivudine, transitioned to tenofovir, withseroconversion now off antivirals presents to GI clinic for follow-up. Interval Events: - last seen in GI clinic 08/27/2017 - did not get blood work checked after her last visit - since then unfortunately has had renal artery bypass surgery and ongoing difficulty controlling blood pressure (both hypertension and hypotension) as well as worsening renal function - she has been having worsening reflux symptoms since our last visit- has had reflux in the past butnot recently. No dysphagia, no N/V, no early satiety (although appetite hasn't been great in the setting of other medical problems, and she has lost weight between multiple hospitalizations.) GI Problem List: Resolved Hepatitis B - Presented with jaundice, fatigue, nausea and vomiting - AST 1200 ALT 1300 Tbili 20 ALb 2.4 INR 1.8 ?? - Lamivudine 100 mg initiated 03.04.2013 d/c 07/15/2013 - Tenofovir 300 mg started 07/15/2013 - ASMA <20, KAYLEE neg, IgG 1260, IgM 516, IgA 320 - Abd US 10/2014 normal liver, cholelithiasis - Hep B S Ab negative 2012, Hep B Core IgG positive-Hep BE Ab positive-Hep B S Ag negative 11/2014 - Hep B S Ab positive 04/2015 - Fibroscan 01/2016 F2 - 7.3/28%/100% - Fibroscan 08/2017 F1 Medications: Current Outpatient Medications on File Prior to Visit Medication Sig Dispense Refill ??? ferrous sulfate 325 mg (65 mg iron) Tablet, Delayed Release (E.C.) Take 1 tablet by mouth 3 times daily (with meals). 60 tablet 3 ??? sodium bicarbonate 650 mg Tablet Take 2 tablets by mouth 2 times daily. 60 tablet 0 ??? labetalol (NORMODYNE) 200 mg Tablet Take 1.5 tablets by mouth 2 times daily. 270 tablet 3 ??? isosorbide mononitrate (IMDUR) 30 mg Tablet Sustained Release 24 hr Take 3 tablets by mouth Daily at Noon. 270 tablet 3 ??? gabapentin (NEURONTIN) 100 mg Capsule Take 2 capsules by mouth 3 times daily. 90 capsule 12 ??? amLODIPine (NORVASC) 10 mg Tablet Take 1 tablet by mouth every evening. 90 tablet 3 ??? atorvastatin (LIPITOR) 20 [...] ??? levothyroxine (SYNTHROID) 25 mcg Tablet Take 25 mcg by mouth daily. ??? aspirin 81 mg Tablet, Delayed Release (E.C.) Take 81 mg by mouth daily. No current facility-administered medications on file prior to visit. PHYSICAL EXAM: Vitals: Last value Range last 24 hrs Temperature Temp: -- Heart Rate Heart Rate: -- Blood Pressure BP: ()/() Respiratory Rate Resp: -- SpO2 SpO2: -- Wt Readings from Last 3 Encounters: 11/30/18 41.8 kg (92 lb 3.2 oz) 11/09/18 44.9 kg (99 lb) 11/09/18 45.2 kg (99 lb 9.6 oz) Body mass index is 16.42 kg/m??. Exam: Most Recent Vitals: 12/16/18 1115 BP: 120/54 Pulse: 57 Gen: AAOX3, NAD HEENT: Anicteric sclera, MMM CV: RRR, no murmurs Resp: CTAB Abd: Soft, NT, ND, NABS, No HSM appreciated Back: No CVA tenderness noted EXT: No pedal edema Skin: No rashes, sores or ulcers Neuro: Grossly nonfocal Labs: Reviewed in e[facility] Imaging: Fibroscan 08/27/17: E kPa median: 4.2 IQR / me 24% 100 cap score 20 measurements ASSESSMENT/PLAN: 68-year-old woman with chronic hepatitis B treated with lamivudine, transitioned to tenofovir, with seroconversion now off antivirals presents to GI clinic for follow-up. Although she has seroconverted, she did have a HepB surface Ab quant of 6.3 in 2017, which is a little unusual, and so we recommendrepeat Hepatitis serologies today (had recommended at last visit, but this was not done). She had [id number] on fibroscan in August 2017, which is reassuring. No indication for HCC or variceal screening at this point (assuming she remains cleared of hep B) For her new onset reflux symptoms, recommend an EGD with MAC. She did have a normal EGD 07/2017, donefor variceal screening. Will touch base with her residential collections in regards to staring a PPI. Finally, she is overdue for screening colonoscopy: prefers to schedule this closer to home through her PCP. Discussed the importance of this again at today's visit. Recommendations: New onset GERD: - lifestyle modifications: avoid foods that trigger symptoms, no food 3 hours before lying down, raise head of the bed - EGD with MAC - Discuss with nephrology about starting a PPI For history of hep B: - repeat Hep B serologies today, given HepB surface Ab quant of 6.3 in 2017 - If lab values are consistent with cleared Hep B, no indication for HCC screening or variceal screening going forward This patient was discussed with Dr. Ansari at the time of her visit Joceline Monroe MD Gastroenterology Fellow [facility] Pager [phone] 12/16/2018 documented in this encounter Plan of Treatment Scheduled Orders Name Type Priority Associated Diagnoses Order S chedule UPPER GI ENDOSCOPY Procedures Routine Gastroesophageal reflu x Ordered: 12/22/2018 disease, esophagitis presence not specified Scheduled Procedures Name Priority Associated Diagnoses Date/Time EGD, UPPER GI ENDOSCOPY Gastroesophageal reflux disease, esophagitis presence not specifi ed documented as of this encounter Procedures Procedure Name Priority Date/Time Associated Diagnosis Comme nts HEPATITIS B CORE Routine 12/16/2018 12:17 PM Viral hepatiti s B Results for this AB EDT chronic procedure are i n the results section. HC HEPATITIS B Routine 12/16/2018 12:17 PM Viral hepatitis B R esults for this SURFACE AB EDT chronic procedure are i n the results section. HC HEPATITIS B Routine 12/16/2018 12:17 PM Viral hepatitis B R esults for this SURFACE AG EDT chronic procedure are i n the results section. documented in this encounter Results Hepatitis B Surface Antigen (12/16/2018 12:17 PM EDT) Analysis Performed At Patho logist Time Signature HepB Surface Negative Negative [facility] LABORATORY Specimen Anatomical Collection Method Collection Time Receive d Time (Source) Location / / Volume Laterality Blood specimen 12/16/2018 12:17 9 (specimen) PM EDT 12:31 PM EDT Resulting Agency Comment Spec In Lab Frantz Ansari MD CHEMISTRY ORDERABLES Performing Organization Address City/[facility] [place] [address] Hepatitis B Surface Antibody (12/16/2018 12:17 PM EDT) P athologist Signature HepB Surface <3.5 IU/L [facility] LABORATORY Comment: HepB Surface Ab Quant: Unvaccinated: < 8.5 IU/L Vaccinated: > 11.5 IU/L HepB Surface Ab Negative [facility] Comment: Patient is presumed to be not vaccinated or immune to HBV infection. Expected Results: Vaccinated: Positive Unvaccinated: Negative Specimen Anatomical Collection Method Collection Time Receive d Time (Source) Location / / Volume Laterality Blood specimen 12/16/2018 12:17 9 (specimen) PM EDT 12:31 PM EDT Resulting Agency Comment Spec In Lab Frantz Ansari MD IMMUNOLOGY ORDERABLES Performing Organization Address City/[facility] Phon e Number [address] (ABNORMAL) Hepatitis B Core Antibody, Total (12/16/2018 12:17 PM EDT) Patholo gist Method Time Signature Hep B Core Ab Positive (A) Negative [facility] Specimen Anatomical Collection Method Collection Time Receive d Time (Source) Location / / Volume Laterality Blood specimen 12/16/2018 12:17 9 (specimen) PM EDT 12:31 PM EDT Resulting Agency Comment Spec In Lab Frantz Ansari MD CHEMISTRY ORDERABLES Performing Organization Address City/State/[place] [address] documented in this encounter Visit Diagnoses Diagnosis Gastroesophageal reflux disease, esophag itis presence not specified - Primary Viral hepatitis B chronic Viral hepatitis B without mention of hep atic coma, chronic, without mention of hepatitis delta documented in this encounter Care Teams Kitchenhand Relationship Specialty Start Date End Date Sanjuanita Lee MD PCP - General 03/05/13 12/23/[address] [place] [address] documented as of this encounter
--- OUTSIDE RECORDS SUMMARY | 2022-02-22 23:34 | XMS_ITS | Encounter Summary ---
:1950 Author Organization [facility] [place] [address] Care Team Providers Name Role Phone Sanjuanita Lee MD Primary Care Provider Encounter Details Date Type Department Care Team Description 10/14/2018 Orders Only Vascular Surgery Leah Cline, Renal artery stenosis, [facility] [place] [address] VASCULAR SURGERY [phone] [place], [place] [address] (Wo rk) Social History Tobacco [...] Component Value Ref Test Analysis Performed At [facility] Range Method Time Signature VB Text Department: Vascular Surgery Lab [facility] Report Patient: [id number] (CHARLENE HARMON) CPT: 49493 ICD10: I70.1;I77.1 Referring Physician: UNIQUE BRAVO ?? [...] encounter Visit Diagnoses Diagnosis Renal artery stenosis, [place] Atherosclerosis of renal artery documented in this encounter Care Teams Transformer Maker Relationship Specialty Start Date End Date Sanjuanita Lee MD PCP - General 03/05/13 12/23/[address] [place] [address] documented as of this encounter
--- OUTSIDE RECORDS SUMMARY | 2022-02-22 23:34 | XMS_ITS | Encounter Summary ---
:1950 Author Organization [place] [address] Care Team Providers Name Role Phone Sanjuanita Lee MD Primary Care Provider Encounter Details Date Type Department Care Team Description 11/30/2018 Laboratory Appointment Lab 3L [facility] Hypertension, essential, benign; [facility] Anemia of chronic kidney tammie lure, stage 3 (moderate) ; [facility] CKD ([facility]agro kidney disease) stage 3, GFR 30-59 ml/[place] [address] Social History Tobacco Use Types [...] Priority Date/Time Associated Diagnosis Comme nts HEMOGRAM Routine 11/30/2018 2:29 PM CKD (chronic kidney Re sults for this EDT disease) stage 3, procedure are in GFR 30-59 ml/min the results section. DIFFERENTIAL, Routine 11/30/2018 2:29 PM CKD (chronic kidney R esults for this AUTOMATED EDT disease) stage 3, procedure are in GFR 30-59 ml/min the results section. IRON AND TIBC Routine 11/30/2018 2:29 PM Anemia of chronic Res ults for this EDT kidney failure, procedure ar e in stage 3 (moderat e) the results CKD (chronic kidney section. disease) stage 3, GFR 30-59 ml/min CBC (WITH DIFF) Routine 11/30/2018 2:29 PM CKD (chronic kidney EDT disease) stage 3, GFR 30-59 ml/min FERRITIN Routine 11/30/2018 2:29 PM Anemia of chronic Resu lts for this EDT kidney failure, procedure ar e in stage 3 (moderat e) the results CKD (chronic kidney section. disease) stage 3, GFR 30-59 ml/min BASIC METABOLIC Routine 11/30/2018 2:29 PM Hypertension, Resul ts for this PANEL (NON-FASTING) EDT essential, benign pro cedure are in the results section. documented in this encounter Results (ABNORMAL) Differential, Automated (11/30/2018 2:29 PM EDT) [facility] gist Method Time Signature Neutrophils % 53.0 % [facility] Neutr Abs (ANC) 3.54 1.70 - [facility] 6.10 [facility] x10(3)/[facility] LABORATORY Lymphocytes % 17.9 % [facility] Lymphocytes Abs 1.2 0.9 - 3.2 [facility] x10(3)/[facility] LABORATORY Monocytes % 14.2 % [facility] Monocyte Abs 1.0 (H) 0.3 - 0.9 [facility] x10(3)/[facility] LABORATORY Eosinophils % 13.0 % [facility] Eosinophils Abs 0.9 (H) 0.0 - 0.4 [facility] x10(3)/[facility] LABORATORY Basophils % 1.5 % [facility] Basophils Abs 0.1 0.0 - 0.1 [facility] x10(3)/[facility] LABORATORY Immature Gran % 0.40 % [facility] Comment: Immature granulocytes(IG's)percentage an d absolute count will include metamyelocytes, myelocytes, and promyelo cytes. Blood smears from CBCs yielding IG's will be scanned manually for concor dance. If this scan disagrees with the automated IG or if promyelocytes are not ed, a manual differential will be performed. Blanca Gran Abs 0.03 0.00 - 0.04 x10(3)/[facility] Specimen Anatomical Collection Method Collection Time Receive d Time (Source) Location / / Volume Laterality Blood specimen 11/30/2018 2:29 PM 019 2:40 (specimen) EDT PM EDT Resulting Agency Comment Spec In Lab Champ ENGLE HEMATOLOGY ORDERABLES Performing Organization Address City/State/ZIP Code Phon e Number [place] [phone] (ABNORMAL) Hemogram (11/30/2018 2:29 PM EDT) Analysis Performed At Patho logist Time Signature WBC 6.7 4.0 - 9.5 [facility] x10(3)/[facility] LABORATORY RBC 3.43 (L) 4.00 - [facility] 5.21 [facility] x10(6)/[facility] LABORATORY Hemoglobin 10.4 (L) 11.7 - [facility] 15.5 gm/dL [facility] Hematocrit 30.6 (L) 35.7 - [facility] 45.8 % [facility] MCV 89.2 82.6 - [facility] 94.4 [facility] LABORATORY MCH 30.3 27.1 - [facility] 32.0 pg [facility] MCHC 34.0 31.7 - [facility] 35.0 gm/dL [facility] Platelets 268 145 - 357 [facility] x10(3)/[facility] LABORATORY RDWSD 48.2 (H) 37.0 - [facility] 46.0 [facility] LABORATORY RDWCV 14.8 (H) 11.5 - [facility] 14.1 % [facility] MPV 10.5 7.6 - 12.9 [facility] LABORATORY nRBC % Auto 0.0 % [facility] nRBC Abs Auto 0.000 0.000 - ZAKIA ZHANG 0.000 [facility] x10(3)/[facility] LABORATORY Specimen Anatomical Collection Method Collection Time Receive d Time (Source) Location / / Volume Laterality Blood specimen 11/30/2018 2:29 PM 019 2:40 (specimen) EDT PM EDT Resulting Agency Comment Spec In Lab Champ [facility] HEMATOLOGY ORDERABLES Performing Organization Address City/State/ZIP Code Phon e Number [address] (ABNORMAL) Iron and TIBC (11/30/2018 2:29 PM EDT) athologist Signature Iron 46 30 - 150 [facility] mcg/dL [facility] TIBC 347 250 - 450 [facility] mcg/dL [facility] Iron Saturation 13 (L) 20 - 50 % [facility] Specimen Anatomical Collection Method Collection Time Receive d Time (Source) Location / / Volume Laterality Blood specimen 11/30/2018 2:29 PM 019 2:40 (specimen) EDT PM EDT Resulting Agency Comment Spec In Lab Brady Gallo MD CHEMISTRY ORDERABLES Performing Organization Address City/[facility]/[place] [address] Ferritin (11/30/2018 2:29 PM EDT) athologist Signature Ferritin 89 30 - 400 [facility] ng/mL [facility] Comment: Pediatric reference ranges not verified at [facility] interpret with caution. Reference ranges for females greater letty n 50 years of age approach values for men, i.e., 30-400 ng/mL. Specimen Anatomical Collection Method Collection Time Receive d Time (Source) Location / / Volume Laterality Blood specimen 11/30/2018 2:29 PM 019 2:40 (specimen) EDT PM EDT Resulting Agency Comment Spec In Lab Brady Gallo MD CHEMISTRY ORDERABLES Performing Organization Address City/State/[place] [address] (ABNORMAL) Basic Metabolic Panel (non-fasting) (11/30/2018 2:29 PM EDT) P athologist Signature Glucose Lvl 147 65 - 199 [facility] mg/dL [facility] Comment: Diabetes: >=200 mg/dL plus symp toms BUN 30 (H) 8 - 18 mg/dL [facility] Creatinine 2.90 (H) 0.70 - 1.20 mg/dL [facility] Sodium 136 135 - 145 [...] estions. Chloride 99 98 - 107 mmol/L [facility] CO2 18 (L) 22 - 31 mmol/L [facility] Anion Gap 19 (H) 5 - 15 mmol/L [facility] Calcium 9.5 8.5 - 10.5 mg/dL [facility] Estimated GFR 16 (L) >=60 mL/min/1.73 m?? [facility] Comment: The eGFR was calculated using the CKD-EP I equation. As with all creatinine based estimates of kidney function, eGFR values calculated with the CKD-EPI equation are not accurate in patients wi th acute kidney failure, extremes of body mass or the acutely ill. [email or web address] eGFR 18 (L) >=60 mL/min/1.73 m?? [facility] Comment: The eGFR was calculated using the CKD-EP I equation. As with all creatinine based estimates of kidney function, eGFR values calculated with the CKD-EPI equation are not accurate in patients wi th acute kidney failure, extremes of body mass or the acutely ill. [email or web address] Specimen Anatomical Collection Method Collection Time Receive d Time (Source) Location / / Volume Laterality Blood specimen 11/30/2018 2:29 PM 019 2:40 (specimen) EDT PM EDT Resulting Agency Comment Spec In Lab Tyron Kemp MD CHEMISTRY ORDERABLES Performing Organization Address City/State/[place] [address] documented in this encounter Visit Diagnoses Diagnosis Hypertension, essential, benign Essential hypertension, benign Anemia of chronic kidney failure, stage 3 (moderate) CKD (chronic kidney disease) stage 3, GF R 30-59 ml/min Chronic kidney disease, Stage III (moder ate) documented in this encounter Care Teams Casting Tester Relationship Specialty Start Date End Date Sanjuanita Lee MD PCP - General 03/05/13 12/23/[address] [place] [address] documented as of this encounter
--- OUTSIDE RECORDS SUMMARY | 2022-02-22 23:34 | XMS_ITS | Encounter Summary ---
:1950 Author Organization [facility] [place] [address] Care Team Providers Name Role Phone Sanjuanita Lee MD Primary Care Provider Reason for Visit Reason Onset Date Comments Medication Problem 12/01/2018 Encounter Details Date Type Department Care Team Description 12/01/2018 Telephone Internal Medicine at [facility] Esthela Abreu [facility] [place] [address] Social History Tobacco Use Types Packs/Day [...] this encounter Miscellaneous Notes Telephone Encounter - Esthela Abreu - 12/01/2018 9:42 AM EDT Pharmacy or caller: [facility] Medication: gabapentin (NEURONTIN) 100 mg Capsule Message: Looking to get 90 day supply on the above medication. documented in this encounter Plan of Treatment Scheduled Procedures Name Priority Associated Diagnoses Date/Time EGD, UPPER GI ENDOSCOPY Gastroesophageal reflux disease, esophagitis presence not specifi ed documented as of this encounter Visit Diagnoses Not on filedocumented in this encounter Care Teams Spanish Interpreter Relationship Specialty Start Date End Date Sanjuanita Lee MD PCP - General 03/05/13 12/23/[address] [place] [address] documented as of this encounter
--- OUTSIDE RECORDS SUMMARY | 2022-02-22 23:34 | XMS_ITS | Encounter Summary ---
:1950 Author Organization [facility] [place] [address] Care Team Providers Name Role Phone Sanjuanita Lee MD Primary Care Provider Reason for Visit Reason Comments Renal Artery Stenosis RENAL ARTERY STENOSIS Encounter Details Date Type Department Care Team Description 2018 Office Visit Vascular Surgery at [place], Diane Banegas nal artery stenosis, [place]; [facility] Renal artery stenosis; [facility] Abd ominal aortic aneurysm (AAA) without rupture Drive [address] [place], [place] VASCULAR SURGERY [address] [place] [address] [phone] Social History Tobacco Use Types Packs/Day Years [...] Sign Reading Time Taken Comments Blood Pressure 152/61 2018 3:27 PM EDT Pulse 75 2018 3:27 PM EDT Temperature - - Respiratory Rate 18 2018 3:27 PM EDT Oxygen Saturation - - Inhaled Oxygen Concentration - - Weight 44.9 kg (99 lb) 2018 3:27 PM EDT Height 152.4 cm (5') 2018 3:27 PM EDT Body Mass Index 19.33 2018 3:27 PM EDT documented in this encounter Progress Notes Crissy Fili S - 2018 3:15 PM EDT The patient is status post a [...] States that R flank incision is well-healed. On examination, plantar surface of R 4th toe has 0.5-cm black macule that is tender to palpation. Full ROM and strength in foot and toes. Palpable DP and PT pulses bilaterally. Sensation intact on plantar and dorsal surfaces of feet. Labs: Creatinine today is 2.72, and has been elevated above 2.3 since [...] aneurysm sac. Impression and plan ?? Ms. Tesfayes blood pressure has been well-controlled since her discharge from the hospital in September. Renal artery duplex today reveals patient iliac to renal artery bypass graft with elevated velocities in the iliac artery inflow. Given that bypass is patent without stenosis, the most likely etiology of Ms. Harmon's elevated Cr is dehydration. She was encouraged to increase fluid intake as tolerated. Regarding her R 4th toe pain, history [...] pressure is around 152. She saw her dental aide Dr. Gallo today. RTC 4 months for [...] Encouraged her to maintain PO intake. RTC 4 months with studies. documented in this encounter Plan of Treatment Scheduled Procedures Name Priority Associated Diagnoses Date/Time EGD, UPPER GI ENDOSCOPY Gastroesophageal reflux disease, esophagitis presence not specifi ed documented as of this encounter Results Duplex Study Renal Arteries, Bilat (10/05/2019 10:04 AM EDT) Component Value Ref Test Analysis Performed At [facility] feedPack Range Method Time Signature VB Text Department: Vascular Surgery Lab [facility] Report Patient: [id number] (CHARLENE HARMON) CPT: 71279 ICD10: I70.1 Referring Physician: UNIQUE BRAVO ?? Indications: Patient with h/o right renal artery bypass, ? c amrike ICD10 Diagnosis Code: I70.1 Findings: Syl Renal [...] Patent: Patent Interpretation: Right: Patent suspected distal [place] main renal artery wi th no evidence [...] ? 188 ?2.2 9 Electronically Signed by: UNIQUE BRAVO on 2019-10-05 11:20 :11 AM VB Text End of Report [facility] Report Specimen (Source) Anatomical Collection Method Collection Time Re ceived Time Location / / Volume Laterality 10/05/2019 10:04 AM EDT Unique Bravo MD VASCULAR ORDERABLES Performing Organization Address City/State/ZIP Code Phon e Number [facility] documented in this encounter Visit Diagnoses Diagnosis Renal artery stenosis, [place] Atherosclerosis of renal artery Renal artery stenosis Atherosclerosis of renal artery Abdominal aortic aneurysm (AAA) without rupture documented in this encounter Care Teams Resident Assistant Relationship Specialty Start Date End Date Sanjuanita Lee MD PCP - General 03/05/13 12/23/[address] [place] [address] documented as of this encounter
--- OUTSIDE RECORDS SUMMARY | 2022-02-22 23:34 | XMS_ITS | Encounter Summary ---
:1950 Author Organization [facility] [place] [address] Care Team Providers Name Role Phone Sanujanita Lee MD Primary Care Provider Encounter Details Date Type Department Care Team Description 11/30/2018 Office Visit Nephrology Hypertension Tyron Kemp MD [facility] [place] [address] CKD (chronic kidney disease) stage 3, GF R 30-59 ml/min; [place] [facility] Champ Valentine MBBS [facility] [place] [address] Renal artery stenosis; [facility] Essential hypertension; Drive Anemia of chronic renal fail ure, stage 3 (moderate) [place] [address] Social History Tobacco Use Types Packs/Day [...] Sign Reading Time Taken Comments Blood Pressure 161/64 11/30/2018 3:17 PM EDT Pulse 64 11/30/2018 3:17 PM EDT Temperature - - Respiratory Rate - - Oxygen Saturation 96% 11/30/2018 3:17 PM EDT Inhaled Oxygen Concentration - - Weight 41.8 kg (92 lb 3.2 oz) 11/30/2018 3:17 PM EDT Height 152.4 cm (5') 11/30/2018 3:17 PM EDT Body Mass Index 18.01 11/30/2018 3:17 PM EDT documented in this encounter Progress Notes Tyron Kemp MD - 11/30/2018 3:30 PM EDT I saw and discussed the patient with the fellow and I agree with the assessment and plan in his note. 68-year-old female with history of CKD stage III/IV and recent renal artery bypass surgery presentsfor follow-up. Patient presents her diligent home blood pressure monitor log which demonstrates blood pressures ranging between the 120s to 130s systolic. Of note diastolic pressures ranged between theupper 40s to mid 50s systolic. Patient did have hospitalization with high blood pressure and perhapspulmonary edema in mid October and this was attributed to indiscretion with dietary salt intake. Since then patient has had no issues, furthermore she has not had any more syncopal episodes. Believe that we have best balance between systolic and diastolic pressure on current regimen and will not make changes at this time. Creatinine is up slightly to 2.9 mg/dL and we will have to continue to follow thisclosely. Patient has non-anion gap metabolic acidosis and she is further encouraged to begin sodium bicarbonate therapy. While there is an element to sodium present this should not carry risk of overload in comparison to sodium chloride. Champ Valentine MBBS - 11/30/2018 3:30 PM EDT HYPERTENSION/ NEPHROLOGY CLINIC FOLLOW UP NOTE PATIENT: Charlene Harmon : 1950 HPI: 68 y.o. female with PMHx significant for CKD stage 3GB/4 with baseline creatinine of 1.9-2 mg/dl ) [...] quit 10 years ago),??who was admitted [place] [facility] [place] for??hypertensive urgency and??flash pulmonary edema requiring BIPAP and ICU admission. She had renal artery angiogram on 09/01/18??which showed??widely patent left main renal artery (very mild stenosis at origin but thereafter??widely patent) .??Designated right renal angiogram showed occluded right renal artery at origin with reconstitution ~1 cm from origin at branch point, several collateral vessels in area. She had GAEL during the admission withhighest creatinine of 2.89 mg/dl . She underwent ??Right external iliac to right renal artery bypasswith reversed right greater saphenous vein??on 09/07/18 . ?? She was seen in Nephrology clinic last month for HTN and CKD management. Her BP was running high in the evening so advised to take labetalol 300 mg in morning and afternoon, amlodipine 10 mg in morningand Imdur 90 mg in afternoon. She keeps track of BP, intake and urine output very diligently. BP hasbeen more stable than in the past. BP mostly ranging 120-130 mmhg except few episodes of 150- 170 mmhg. Diastolic Bp runs 40-50 mmhg. she has not had any syncopal events in last 2 months. She was admitted in OSH second week of October due SOB , high blood pressure and was treated for pulmonary edema which was attributed for increased salt intake. She has not started sodium bicarbonate which was prescribed last month. She denied shortness of breath, leg edema, chest pain [facility] Past Medical History: Diagnosis Date ??? AAA (abdominal aortic aneurysm) [id number] angiogram; 3.2 cm infrarenal ??? Constipation ??? Dyslipidemia ??? Hypertension ??? Insomnia ??? Peripheral vascular disease ??? Renal artery stenosis R; per 2009 angiogram Past Surgical History: Procedure Laterality Date ??? HYSTERECTOMY ? ? PRO CATHETER 1ST ORDER W/WO ART PUNCT/FLUORO/S&I BILATERAL Bilateral 09/01/[address] (FIRST-ORDER), MAIN RENAL ART & ANY ACC, W/S&I; ANDREY (WRVU 6.99) performedby Regan Chen MD at [facility] MAIN OR ??? PRO UPPER GI ENDOSCOPY, DIAGNOSTIC 01/20/2014 EGD, UPPER GI ENDOSCOPY performed by Corby Cano MD at [facility] ENDOSCOPY ??? PRO UPPER GI ENDOSCOPY, DIAGNOSTIC N/A 07/28/2017 EGD, UPPER GI ENDOSCOPY performed by Snow Liao MD at [facility] ENDOSCOPY ??? PRO VEIN BYPASS GRAFT, AORTOILIOFEMORAL N/A 09/07/2018 @BYPASS GRAFT, AORTOILIAC W\ VEIN CONDUIT (WRVU 41.88) performed by Isac Moody MD at [facility] MAIN OR Family History Problem Relation Age of Onset ??? Hypertension Mother ??? Cervical Cancer Mother ??? Chronic Obstructive Pulmonary Disease Father ??? Hypertension Sister Social History- does not smoke and drink alcohol Outpatient medications: Current Outpatient Medications on File Prior to Visit Medication Sig Dispense Refill ??? isosorbide mononitrate (IMDUR) 30 mg Tablet [...] Take 81 mg by mouth daily. ??? sodium bicarbonate 650 mg Tablet Take 2 tablets by mouth 2 times daily. 60 tablet 0 ??? labetalol (NORMODYNE) 200 mg Tablet Take 1.5 tablets by mouth 2 times daily. 270 tablet 3 ??? levothyroxine (SYNTHROID) 25 mcg Tablet Take 25 mcg by mouth daily. No current facility-administered medications [...] Temperature Temp: -- Heart Rate Heart Rate: 64 Heart Rate: -- Blood Pressure BP: 161/64 BP: -- Respiratory Rate Resp: -- SpO2 SpO2: 96 % SpO2: -- Appearance - Alert, Comfortable. Skin - No exanthem. HEENT - Sclera white. Mucous membranes moist. Chest: Lungs clear to ausculatation w/o wheezes/ rhonchi/ crackles. Heart - S1 and S2 clear w/o murmur, gallop, or rub. JVP not elevated. Abd - Soft. + BS. No bruit. Non tender. Ext :- Warm. No cyanosis. No dependent edema. Neuro - No asterixis. STUDIES: Labs: CBC: Recent Labs 11/30/18 1429 11/09/18 1226 10/07/18 0625 WBC 6.7 7.3 8.0 HGB 10.4* 10.2* 10.6* PLATELET 268 297 283 Chemistry: Recent Labs 11/30/18 14211/09/18 1226 10/07/18 0625 NA 136 140 137 K 3.6 3.7 3.8 CL 99 105 103 CO2 18* 19* 18* BUN 30* 33* 28* CREATININE 2.90* 2.72* 2.43* GLUCOSE 147 121 105 Recent Labs 11/30/18 1429 11/09/18 1226 10/07/18 0625 10/06/18 0517 10/05/18 0645 09/03/18 0035 09/02/18 0329 CALCIUM 9.5 9.5 9.1 9.1 9.4 < > 8.2* 8.5 MAGNESIUM -- -- 0.80 0.79 0.81 < > 0.95 0.97 PHOS -- 4.2 -- -- -- -- 4.4 6.2* < > = values in this interval not displayed. LFT's: Recent Labs 10/03/18 0329 06/14/18 1022 BILITOT <0.2* 0.4 BILIDIR 0.1 -- ALBUMIN 3.4 3.9 ALKPHOS 72 57 ALT 13 AST IMPRESSION/ RECOMMENDATIONS: She is 68 y.o. female with PMHx significant for CKD stage 3GB/4 with baseline creatinine of 1.9-2 mg/dl ) due to long standing uncontrolled HTN and renal ischemia caused byb/l renal artery. She underwent right renal artery bypass surgery 3 months ago when she developed GAEL on CKD when her serum creatinine was up to 4 mg/dl , subsequently she had wide fluctuation in BP, orthostatic hypotension and recurrent syncopal events. She does not have syncopal events and no evidence of orthostatic hypotension for last 2 months. Clinically she is not in fluid overload. ??Her renalfunction is stable with slight up trending serum creatinine to 2.90 mg/dl , probably due to intravascular volume depletion as suggested by urine sodium less than 20 . BP has been more stable without orthostatic and syncopal events. ?? # Hemodynamics- BP Mostly on target except few sporadic episodes when it was 150-170 mmhg. Low diastolic BP ranging 40-50 mmg would limit further medicine adjustment . She does not have orthostatic hypotension now . Recommend to continue Imdur 90 mg in afternoon, amlodipine 10 mg in morning And Labetalol 300 mg in the evening and 300 mg in the afternoon. Due to recent right renal artery bypass might take few more months to stabilize BP -Encourage to monitor BP daily at home and keep record . Call us if BP is persistently above 180 mmhg -F/u with vascular surgery for renal artery bypass scheduled ?# GAEL on CKD stage 3 Gb/4-??Renal functions is stable with slight up trending serum creatinine today to 2.90 mg/dl , most likely due to fluctuation in hemodynamics and intravascular volume depletion due to intermittent diuretics .?? - Avoid NSAIDS, contrast and nephrotoxin if possible. - Dose medication for current eGFR ?? # Acid/Base balance- Metabolic acidosis with serum bicarbonate 18 meq/dl Recommend to start sodium bicarbonate 1300 mg BID which was prescribed last month. ?? # Anemia- Hemoglobin is 10.4 g/dl , below target range She is iron deficient , Iron level is 46 ad Tsat 13%, as she prefers oral supplement, we recommend ferrous sulfate 325 mg BID for now and will arrange iv iron infusion when she return from vacation trip next month. ?? # BMD- Latest serum calcium , PTH and phosphorous is within normal limit ?? Follow up in Nephrology clinic in 4-6 weeks Thanks for letting us participate in the care of this patient. Seen and Discussed w/ Dr. Viridiana valentine Nephrology Fellow documented in this encounter Plan of Treatment Scheduled Procedures Name Priority Associated Diagnoses Date/Time EGD, UPPER GI ENDOSCOPY Gastroesophageal reflux disease, esophagitis presence not specifi ed documented as of this encounter Procedures Procedure Name Priority Date/Time Associated Diagnosis Comme nts ELECTROLYTES, Routine 11/30/2018 4:30 PM CKD (chronic kidney R esults for this URINE, RANDOM EDT disease) stage 3, procedure are in GFR 30-59 ml/min the results section. documented in this encounter Results Electrolytes, urine, random (11/30/2018 4:30 PM EDT) P athologist Signature U Sodium <20 mmol/L [facility] U Potassium 35 mmol/L [facility] U Chloride <20 mmol/L [facility] Specimen Anatomical Collection Method Collection Time Receive d Time (Source) Location / / Volume Laterality Urine specimen 11/30/2018 4:30 PM 019 5:06 (specimen) EDT PM EDT Resulting Agency Comment Spec In Lab Tyron Kemp MD URINE ORDERABLES Performing Organization Address City/State/[place] [address] documented in this encounter Visit Diagnoses Diagnosis CKD (chronic kidney disease) stage 3, GF R 30-59 ml/min Chronic kidney disease, Stage III (moder ate) Renal artery stenosis Atherosclerosis of renal artery Essential hypertension Unspecified essential hypertension Anemia of chronic renal failure, stage 3 (moderate) documented in this encounter Care Teams Occupancy Specialist Relationship Specialty Start Date End Date Sanjuanita Lee MD PCP - General 03/05/13 12/23/[address] [place] [address] documented as of this encounter
--- OUTSIDE RECORDS SUMMARY | 2022-02-22 23:34 | XMS_ITS | Encounter Summary ---
:1950 Author Organization [facility] [place] [address] Care Team Providers Name Role Phone Sanjuanita Lee MD Primary Care Provider Reason for Visit Reason Onset Date Comments Medication Refill 12/01/2018 wants 90 day supply Encounter Details Date Type Department Care Team Description 12/01/2018 Telephone [facility] Medicine at [facility] ication [place] [facility] Benjamin RN (wants 90 day supply) [place] [address] Social History Tobacco Use Types Packs/Day [...] on filedocumented in this encounter Care Teams Photoengraving Photographer Relationship Specialty Start Date End Date Sanjuanita Lee MD PCP - General 03/05/13 12/23/[address] [place] [address] documented as of this encounter
--- OUTSIDE RECORDS SUMMARY | 2022-02-22 23:34 | XMS_ITS | Encounter Summary ---
:1950 Author Organization [facility] [address] Care Team Providers Name Role Phone Sanjuanita Lee MD Primary Care Provider Encounter Details Date Type Department Care Team Description 12/14/2018 Orders Only Nephrology Hypertension Rubén, CKD (chronic kidney at [facility] Velasquez disease) stage 4, GFR [facility] D rive 15-29 ml/[place] [address] Social History Tobacco Use Types Packs/Day [...] ed documented as of this encounter Results PTH (01/04/2019 12:52 PM EDT) athologist Signature PTH 47 15 - 65 ZAKIA DELGADOVICENTE pg/mL [facility] Specimen Anatomical Collection Method Collection Time Receive d Time (Source) Location / / Volume Laterality Blood specimen 01/04/2019 12:52 9 1:05 (specimen) PM EDT PM EDT Resulting Agency Comment Spec In Lab Candida Adair MD CHEMISTRY ORDERABLES Performing Organization Address City/State/ZIP Code Phon e Number [address] (ABNORMAL) Uric acid (01/04/2019 12:52 PM EDT) P athologist Signature Uric Acid 8.0 (H) 2.5 - 6.5 ZAKIA VICENTE mg/dL [facility] Specimen Anatomical Collection Method Collection Time Receive d Time (Source) Location / / Volume Laterality Blood specimen 01/04/2019 12:52 9 1:05 (specimen) PM EDT PM EDT Resulting Agency Comment Spec In Lab Candida Adair MD CHEMISTRY ORDERABLES Performing Organization Address City/State/[place] [address] Albumin Level (01/04/2019 12:52 PM EDT) P athologist Signature Albumin 3.8 3.2 - 5.2 ZAKIA VICENTE gm/dL [facility] Specimen Anatomical Collection Method Collection Time Receive d Time (Source) Location / / Volume Laterality Blood specimen 01/04/2019 12:52 9 1:05 (specimen) PM EDT PM EDT Resulting Agency Comment Spec In Lab Candida Adair MD CHEMISTRY ORDERABLES Performing Organization Address City/State/ZIP Code Phon e Number [address] Phosphorus (01/04/2019 12:52 PM EDT) P athologist Signature Phosphorus 4.0 2.5 - 4.5 ZAKIA VICENTE mg/dL [facility] Specimen Anatomical Collection Method Collection Time Receive d Time (Source) Location / / Volume Laterality Blood specimen 01/04/2019 12:52 9 1:05 (specimen) PM EDT PM EDT Resulting Agency Comment Spec In Lab Candida Adair MD CHEMISTRY ORDERABLES Performing Organization Address City/State/[place] [address] (ABNORMAL) Basic Metabolic Panel (non-fasting) (01/04/2019 12:52 PM EDT) P athologist Signature Glucose Lvl 114 65 - 199 [facility] mg/dL [facility] Comment: Diabetes: >=200 mg/dL plus symp toms BUN 44 (H) 8 - 18 mg/dL [facility] Creatinine 3.11 (H) 0.70 - 1.20 mg/dL [facility] Sodium 133 (L) 135 - 145 mmol/L [facility] Potassium 3.6 3.5 - 5.0 mmol/L [facility] Comment: Please note: ??Patients with WBC >100,00 0 may have falsely elevated Potassium levels. ??For accurate Potassium quantif ication in these patients send serum separator tube (gold top) for subsequent determinations. ??Contact the Clinical Chemistry Laboratory if there are any qu estions. Chloride 95 (L) 98 - 107 mmol/L [facility] CO2 21 (L) 22 - 31 mmol/L [facility] Anion Gap 17 (H) 5 - 15 mmol/L [facility] Calcium 9.7 8.5 - 10.5 mg/dL [facility] Estimated GFR 14 (L) >=60 mL/min/1.73 m?? [facility] Comment: The eGFR was calculated using the CKD-EP I equation. As with all creatinine based estimates of kidney function, eGFR values calculated with the CKD-EPI equation are not accurate in patients wi th acute kidney failure, extremes of body mass or the acutely ill. [email or web address] eGFR 17 (L) >=60 mL/min/1.73 m?? [facility] Comment: The eGFR was calculated using the CKD-EP I equation. As with all creatinine based estimates of kidney function, eGFR values calculated with the CKD-EPI equation are not accurate in patients wi th acute kidney failure, extremes of body mass or the acutely ill. [email or web address] Specimen Anatomical Collection Method Collection Time Receive d Time (Source) Location / / Volume Laterality Blood specimen 01/04/2019 12:52 9 1:05 (specimen) PM EDT PM EDT Resulting Agency Comment Spec In Lab Candida Adair MD CHEMISTRY ORDERABLES Performing Organization Address City/State/[place] [address] documented in this encounter Visit Diagnoses Diagnosis CKD (chronic kidney disease) stage 4, GF R 15-29 ml/min Chronic kidney disease, Stage IV (severe ) documented in this encounter Care Teams Advanced Manufacturing Engineer Relationship Specialty Start Date End Date Sanjuanita Lee MD PCP - General 03/05/13 12/23/[address] [place] [address] documented as of this encounter
--- OUTSIDE RECORDS SUMMARY | 2022-02-22 23:34 | XMS_ITS | Encounter Summary ---
:1950 Author Organization [facility] [place] [address] Care Team Providers Name Role Phone Sanjuanita Lee MD Primary Care Provider Encounter Details Date Type Department Care Team Description 2018 Office Visit Nephrology Brady Gallo MD [facility] [place] [address] CKD (chronic kidney disease) stage 3, GF R 30-59 ml/min; Hypertension at [facility] Champ Valentine MBBS [facility] [place] [address] Hypertensive urgency; [facility] Anemia of chronic kidney failure, stage 3 (moderate) ; Drive Renovascular hypertension; [place] [id number] GAEL (acute kidney injury) [phone] Social History Tobacco Use Types Packs/Day Years [...] Sign Reading Time Taken Comments Blood Pressure 161/77 2018 1:43 PM EDT Pulse 76 2018 1:43 PM EDT Temperature - - Respiratory Rate - - Oxygen Saturation 93% 2018 1:43 PM EDT Inhaled Oxygen Concentration - - Weight 45.2 kg (99 lb 9.6 oz) 2018 1:43 PM EDT Height - - Body Mass Index 19.45 10/03/2018 1:25 PM EDT documented in this encounter Progress Notes Champ Valentine MBBS - 2018 2:00 PM EDT HYPERTENSION/ NEPHROLOGY CLINIC FOLLOW UP NOTE PATIENT: Charlene Harmon : 1950 HPI: 68 y.o. female with PMHx significant for CKD stage 3GB/4 with baseline creatinine of 1.9-2 mg/dl ) due to long standing uncontrolled HTN and renal ischemia caused by b/l renal artery , ?she has HFpEF (EF 54% on 08/2018 TTE), bilateral renal artery stenosis (>60% occlusion bilaterally in 01/2018, progression of R stenosis to occlusion and persistent L stenosis on most recent duplexin 08/2018), 3.7 cm AAA, acute HBV, HTN, HLD, former tobacco use (45 years up to 1ppd at max, quit 10years ago),??who was admitted in [facility] in August for??hypertensive urgency and??flash pulmonary edema [...] with highest creatinine of 2.89 mg/dl . She underwent ??Right external iliac to right renal artery bypass with reversed right greater saphenous vein??on 09/07/18 . She was admitted last month again due to fluctuation in BP, severe orthostatic hypotension and recurrent syncopal events. she was given normal saline for volume expansion and antihypertensive medications was adjusted multiple times to prevent severe fluctuation and orthostasis. She was discharged homeon 10/07/18 on Labetalol 300 mg HS, and 200 mg in AM, amlodipine 10 mg in evening and Imdur 90 mg in afternoon. She never had syncopal events at home since discharge from hospital on 10/07. She checks BP three times a days , which generally is not at target. Morning BP ranges 133- 182 /60-74 mmhg and evening is mostly high ranging 183 - 194 /69-83 mmhg. She keep herself well hydrated ;drinks approximately 2-3 liter of fluid and urine output is roughly 2-3 liter in 24 hours. She has mild ankle edema since recent hospital discharge but denied shortness of breath, chest pain,problems in urination , nausea, vomiting , diarrhea and abdominal pain. She endorse waking up in the night and unable to fall asleep . Past Medical History: Diagnosis Date ??? AAA (abdominal aortic aneurysm) [id number] angiogram; 3.2 cm infrarenal ??? Constipation ??? Dyslipidemia ??? Hypertension ??? Insomnia ??? Peripheral vascular disease ??? Renal artery stenosis R; per 2009 angiogram Past Surgical History: Procedure Laterality Date ??? HYSTERECTOMY ? ? PRO CATHETER 1ST ORDER W/WO ART PUNCT/FLUORO/S&I BILATERAL Bilateral 09/01/[address] (FIRST-ORDER), MAIN RENAL ART & ANY ACC, W/S&I; ANDREY (WRVU 6.99) performedby Regan Chen MD at [facility] MAIN OR ??? PRO UPPER GI ENDOSCOPY, DIAGNOSTIC 01/20/2014 EGD, UPPER GI ENDOSCOPY performed by Corby Cano MD at [facility] ENDOSCOPY ??? PRO UPPER GI ENDOSCOPY, DIAGNOSTIC N/A 07/28/2017 EGD, UPPER GI ENDOSCOPY performed by Snow Liao MD at [facility] ENDOSCOPY ??? PRO VEIN BYPASS GRAFT, AORTOILIOFEMORAL N/A 09/07/2018 @BYPASS GRAFT, AORTOILIAC W\ VEIN CONDUIT (WRVU 41.88) performed by Isac Moody MD at [facility] MAIN OR Family History Problem Relation Age of Onset ??? Hypertension Mother ??? Cervical Cancer Mother ??? Chronic Obstructive Pulmonary Disease Father ??? 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 labetalol (NORMODYNE) [...] Resp - No cough, shortness of breath on exertion only but not with daily activity CV - No chest pain, leg swelling, difficulty breathing lying flat GI - No nausea, vomiting,change in bowel habits/abdominal pain - No change in urine output. No pain urinating or blood in urine. Neuro - No weakness. No numbness/ tingling in extremities. PHYSICAL EXAM: Last value Range last 24 hrs Temperature Temp: -- Heart Rate Heart Rate: 76 Heart Rate: [76] Blood Pressure BP: 161/77 BP: (161)/(77) Respiratory Rate Resp: -- SpO2 SpO2: 93 % SpO2: [93 %] Appearance - Alert, Comfortable. Skin - No exanthem. HEENT - Sclera white. Mucous membranes moist. Chest: Lungs clear to ausculatation w/o wheezes/ rhonchi/ crackles. Heart - S1 and S2 clear w/o murmur, gallop, or rub. JVP not elevated. Abd - Soft. + BS. No bruit. Non tender. Ext - Warm. No cyanosis. Trace pedal edema edema. Neuro - No asterixis. STUDIES: Labs: CBC: Recent Labs 11/09/18 1226 10/07/18 0625 10/06/18 05 WBC 7.3 8.0 7.4 HGB 10.2* 10.6* 10.8* PLATELET 297 283 265 Chemistry: Recent Labs 11/09/18122510/07/1825 10/06/18 0517 NA 140 137 136 K 3.7 3.8 3.6 CL 105 103 99 CO2 19* 18* 22 BUN 33* 28* 31* CREATININE 2.72* 2.43* 2.62* GLUCOSE 121 105 106 Recent Labs 11/09/18 1226 10/07/18 0625 10/06/18 0517 10/05/18 0645 09/03/18 0035 09/02/18 0329 CALCIUM 9.5 9.1 9.1 9.4 < > 8.2* 8.5 MAGNESIUM -- 0.80 0.79 0.81 < > 0.95 0.97 PHOS 4.2 -- -- -- -- 4.4 6.2* < > = values in this interval not displayed. LFT's: Recent Labs 10/03/18 0329 06/14/18 1022 BILITOT <0.2* 0.4 BILIDIR 0.1 -- ALBUMIN 3.4 3.9 ALKPHOS 72 57 ALT 13 11 AST IMPRESSION/ RECOMMENDATIONS: She is 68 y.o. female with PMHx significant for CKD stage 3GB/4 with baseline creatinine of 1.9-2 mg/dl ) due to long standing uncontrolled HTN and renal ischemia caused byb/l renal artery. She underwent right renal artery bypass surgery 2 months ago when she developed GAEL on CKD, subsequently she had wide fluctuation in BP, orthostatic hypotension and recurrent syncopalevents. She does not have syncopal events and no evidence of orthostatic hypotension since recent admissionsand adjustment of antihypertensive medication . BP is still not at target through out the day but especially high in evening . Renal function is stable with slightly up trending serum creatinine to 2.72 mg/dl as compared to 2.43 mg/dl on discharge. Except trace pedal edema no overt sign of volume overload. # Hemodynamics- BP is still not at target. She does not have orthostatic hypotension now . BP lying is 164/ 755 mmhg , HR 69/minand standing is 165/69 mmhg ;HR 72/min BP is uncontrolled throughout the day but high mostly in the evening as per home record. Recommend to continue Imdur 90 mg in afternoon, change amlodipine 10 mg in morning instead of evening Continue Labetalol 300 mg in the evening and 300 mg in the afternoon instead of 200 mg in morning. This adjustment might help to regulate BP more evenly through the day. Due to recent right renal artery bypass might take few more months to stabilize BP -Encourage to monitor BP daily at home and keep record . Call us if BP is persistently above 180 mmhg -F/u with vascular surgery for renal artery bypass ?# GAEL on CKD stage 3 Gb/4- Renal functions is stable with slight up trending serum creatinine today , most likely due to fluctuation in hemodynamics and recent renal artery intervention.?? - Avoid NSAIDS, contrast and nephrotoxin if possible. - Dose medication for current eGFR ?? # Acid/Base balance- Metabolic acidosis with serum bicarbonate 19 meq/dl Recommend sodium bicarbonate 1300 mg BID ?? # Anemia- Hemoglobin is 10.2 g/dl , below target range Will do iron studies in next visit ?? # BMD- Latest serum calcium , PTH and phosphorous is within normal limit ?? Will follow up in 1 month. Thanks for letting us participate in the care of this patient. Seen and Discussed w/ Dr. Cleo Valentine Nephrology Fellow Brady Gallo MD - 2018 2:00 PM EDT Renal Staff Addendum Patient seen and examined with Dr. Valentine. I agree with the above note which represents our joint assessment and plan. documented in this encounter Plan of Treatment Scheduled Orders Name Type Priority Associated Diagnoses Order S chedule Basic Metabolic Panel Lab Routine CKD (chronic kidney Expected: 2018, (non-fasting) disease) stage 3, GFR Expir es: 2019 30-59 ml/min Basic Metabolic Panel Lab Routine CKD (chronic kidney Expected: 2018 (non-fasting) disease) stage 3, GFR (Appr oximate), 30-59 ml/min Expires: 2019 Scheduled Procedures Name Priority Associated Diagnoses Date/Time EGD, UPPER GI ENDOSCOPY Gastroesophageal reflux disease, esophagitis presence not specifi ed documented as of this encounter Procedures Procedure Name Priority Date/Time Associated Diagnosis Comme nts PROTEIN/CREATININE Routine 2018 2:30 PM CKD (chronic kid liza Results for this RATIO, URINE EDT disease) stage 3, procedure are in GFR 30-59 ml/min the results section. documented in this encounter Results Ferritin (11/30/2018 2:29 PM EDT) athologist Signature Ferritin 89 30 - 400 [facility] ng/mL [facility] Comment: Pediatric reference ranges not verified at [facility], interpret with caution. Reference ranges for females [...] Organization Address City/State/[place] [address] (ABNORMAL) Iron and TIBC (11/30/2018 2:29 PM EDT) athologist Signature Iron 46 30 - 150 [facility] TIBC 347 250 - 450 [facility] Iron Saturation 13 (L) 20 - 50 % [facility] Specimen Anatomical Collection Method Collection Time Receive d Time (Source) Location / / Volume Laterality Blood specimen 11/30/2018 2:29 PM 019 2:40 (specimen) EDT PM EDT Resulting Agency Comment Spec In Lab Brady Gallo MD CHEMISTRY ORDERABLES Performing Organization Address City/[facility]/[place] [address] (ABNORMAL) Protein/Creatinine Ratio, urine (2018 2:30 PM EDT) Analysis Performed At Patho logist Time Signature U Creatinine 80 mg/dL [facility] U Protein Ran 243 (H) 0 - 12 [facility] mg/dL [facility] Prot/Cre Ratio 3.0 ratio [facility] Specimen Anatomical Collection Method Collection Time Receive d Time (Source) Location / / Volume Laterality Urine specimen 2018 2:30 PM 019 3:09 (specimen) EDT PM EDT Resulting Agency Comment Spec In Lab Brady Gallo MD URINE ORDERABLES Performing Organization Address City/[facility]/ZIP Code Phon e Number [address] (ABNORMAL) PTH (2018 12:26 PM EDT) P athologist Signature PTH 68 (H) 15 - 65 [facility] pg/mL [facility] Specimen Anatomical Collection Method Collection Time Receive d Time (Source) Location / / Volume Laterality Blood specimen 2018 12:26 9 (specimen) PM EDT 12:46 PM EDT Resulting Agency Comment Spec In Lab Brady Gallo MD CHEMISTRY ORDERABLES Performing Organization Address City/[facility]/ZIP Code Phon e Number [address] Phosphorus (2018 12:26 PM EDT) P athologist Signature Phosphorus 4.2 2.5 - 4.5 [facility] mg/dL [facility] Specimen Anatomical Collection Method Collection Time Receive d Time (Source) Location / / Volume Laterality Blood specimen 2018 12:26 9 (specimen) PM EDT 12:46 PM EDT Resulting Agency Comment Spec In Lab Brady Gallo MD CHEMISTRY ORDERABLES Performing Organization Address City/State/[place] [address] documented in this encounter Visit Diagnoses Diagnosis CKD (chronic kidney disease) stage 3, GF R 30-59 ml/min Chronic kidney disease, Stage III (moder ate) Hypertensive urgency Unspecified essential hypertension Anemia of chronic kidney failure, stage 3 (moderate) 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
--- OUTSIDE RECORDS SUMMARY | 2022-02-22 23:34 | XMS_ITS | Encounter Summary ---
:1950 Author Organization [facility] [address] Care Team Providers Name Role Phone Sanjuanita Lee MD Primary Care Provider Reason for Visit Reason Comments Chronic Kidney Disease Encounter Details Date Type Department Care Team Description 01/04/2019 Office Visit Nephrology Tyron Kemp MD [facility] [place] [address] CKD (chronic kidney disease) stage 4, GF R 15-29 ml/min; Hypertension at [facility] Champ Valentine MBBS [facility] [place] [address] Anemia of chronic renal failure, stage 4 (severe); [facility] Uncontrol led hypertension; [place] [address] Social History Tobacco Use Types Packs/Day [...] Sign Reading Time Taken Comments Blood Pressure 189/110 01/04/2019 1:20 PM EDT Pulse 68 01/04/2019 1:20 PM EDT Temperature - - Respiratory Rate - - Oxygen Saturation - - Inhaled Oxygen Concentration - - Weight 37.2 kg (82 lb) 01/04/2019 1:20 PM EDT Height - - Body Mass Index 16.01 12/16/2018 11:15 AM EDT documented in this encounter Patient Instructions Patient InstructionsEva Montana RN - 01/04/2019 1:30 PM EDT Your kidney function is low but stable. We recommend watching the You Tube videos to learn more about options moving forward. Link to Living Well With Kidney Failure by the [employer] https://www.[email or web address]/playlist?[email or web address] Videos available on U-Tube from this link Living Well with Kidney Failure, Part 1: What is Kidney Failure? Living Well with Kidney Failure, Part 2: How Kidney Failure Affects Your Body Living Well with Kidney Failure, Part 3: Kidney Transplantation Living Well with Kidney Failure, Part 4: Peritoneal Dialysis Living Well with Kidney Failure, Part 5 Hemodialysis Living Well with Kidney Failure, Part 6 Living Well (Coping, Purpose, Maintaining Hope) Link to D-H Conservative Care Option Video D H: Dialysis Share Decision Making [email or web address] We would recommend using Zantac 150 mg twice daily to help with your stomach. We recommend stopping the iron pills. We will replace the iron through infusion as needed. We will set this up at [facility] for you. We need to balance your blood pressure - having the episodes of low blood pressure is more dangerous. Continue dosing the Clonidine as needed. Plan to take the Labatelol 400 mg every night. We would like to start you back on amlodipine 2.5 mg at bedtime. Call if you feel differently (consistent symptoms of nausea, vomiting, little appeal for food, itching, change in sleep patterns, worsening energy levels, shortness of breath). These are some of the signs of worsening kidney function. We will see you sooner if you are not feeling well. Please call. Eva COOK-buffing wheel operator Kidney Disease Nurse Specialist at [facility] Nephrology. documented in this encounter Progress Notes hCamp Valentine MBBS - 01/04/2019 1:30 PM EDT [facility] [address] [place] [address] Reason for Clinic Visit: Systems Review and [...] quit 10 years ago),??who was admitted in [facility]??in August??for??hypertensive urgency and??flash pulmonary [...] was seen in Nephrology clinic last month on 11/30/18 for HTN and CKD management. She was started on sodium bicarbonate for metabolic acidosis, after few days she developed shortness of breath and fluid overload. She was admitted in OSH where she was treated with iv lasix and subsequently discharged home on oral lasix. She keeps track of BP 3 times a day, recently lasix has been changed to oral prn only if she retains water/weight gain or leg swelling due to low BP. She has been taking Labetalol 400 mg at night only when Systolic BP > 180 mmhg and clonidine 0.1 mg TID prn only if SBP > 200 mmhg. Her home BP monitoring ranges 110- 140 mmhg in morning and 160-190 mmhg in evening , few readings inevening is > 180 mmhg. Denied having syncopal events recently . She complaints of constipation and heart burning since oral iron started. Does not have problems in urination, chest pain, leg swelling and SOB. History obtained by RN Specialist: Charlene was last seen 11/30/18, eGFR 16. Seen in clinic with her , Rodolfo. This is her first time meeting with the CCMs. Pt was admitted to [facility] for pulmonary edema in November. She has had multiple medication adjustments to manage labile blood pressures. Review of Systems: Sign/Symptom Comments Energy level/fatigue: Some days good, some days not so good.Does not have enough energy to do the things she wants to do. Recently retired as of 11/24/18 Change in sleep patterns: Not well. Reflux keeps her up. Nocturia: 1x Appetite changes: Down - has lost weight from 118 to 82 pounds Has discomfort in abdomen with eatingand drinking - declined use of Protonix before checking with nephrology Food aversions: Nothing tastes good - everything is very bland Nausea: Yes - much of the time Vomiting: Yes - about 1x per week Bowels: Constipation - severe since started iron. Stools dark with green tint Edema: None Shortness of breath: None Orthopnea/PND: No PND - 2 pillows Muscle Cramping: None Cold intolerance: Yes Itching: None Bruising/bleeding: None Mental Status Changes: None - reports decreased concentration Recent Home Blood Pressure Control: Takes 3x [...] coordination Drives - 1.[address] [facility] Functional Status/ Assistive devices Independent Learning [...] urgency I16.0 ??? Severe protein-calorie malnutrition E43 Allergies Allergen Reactions ??? Lisinopril Rise in creatinine Medications 01/04/19 1327 Medication Sig Taking? gabapentin (NEURONTIN) 100 mg Capsule Take 200 mg by mouth nightly. Yes ferrous sulfate 325 mg (65 mg iron) Tablet, Delayed Release (E.C.) Take 1 tablet by mouth 3 times daily (with meals). Yes labetalol (NORMODYNE) 200 mg Tablet Take 1.5 tablets by mouth 2 times daily. Patient taking differently: Take 400 mg by mouth 2 times daily. Yes atorvastatin (LIPITOR) 20 mg Tablet Take 1 tablet by mouth every evening. Yes cloNIDine (CATAPRES) 0.1 mg Tablet Take 1 tablet by mouth every 8 hours as needed (Please take 1 tablet, if systolic blood pressure is >200). Yes acetaminophen (TYLENOL) 500 mg Tablet Take 1 tablet by mouth every 6 hours. Yes levothyroxine (SYNTHROID) 25 mcg Tablet Take 50 mcg by mouth daily. Yes aspirin 81 mg Tablet, Delayed Release (E.C.) Take 81 mg by mouth daily. Yes furosemide (LASIX) 40 mg Tablet Take 40 mg by mouth as needed. Physical Exam: BP (!) 189/110 Pulse 68 Wt 37.2 kg (82 lb) BMI 16.01 kg/m?? Check if examined Findings General appearance Head Eyes ENT Neck Respiratory COR/Vascular Abdomen Skin Neuro Asterixis Extremities Other Labs Results for CHARLENE HARMON ( ) as of 01/04/2019 15:01 Ref. Range 2018 12:26 11/30/2018 14:29 12/16/2018 12:17 01/04/2019 12:52 WBC Latest Ref Range: 4.0 - 9.5 x10(3)/mcL 7.3 6.7 10.2 (H) RBC Latest Ref Range: 4.00 - 5.21 x10(6)/mcL 3.28 (L) 3.43 (L) 3.70 (L) Hemoglobin Latest Ref Range: 11.7 - 15.5 gm/dL 10.2 (L) 10.4 (L) 11.2 (L) Hematocrit Latest Ref Range: 35.7 - 45.8 % 30.7 (L) 30.6 (L) 32.4 (L) MCV Latest Ref Range: 82.6 - 94.4 fL 93.6 89.2 87.6 MCH Latest Ref Range: 27.1 - 32.0 pg 31.1 30.3 30.3 MCHC Latest Ref Range: 31.7 - 35.0 gm/dL 33.2 34.0 34.6 RDWSD Latest Ref Range: 37.0 - 46.0 fL 57.7 (H) 48.2 (H) 45.8 RDWCV Latest Ref Range: 11.5 - 14.1 % 16.7 (H) 14.8 (H) 14.4 (H) Platelets Latest Ref Range: 145 - 357 x10(3)/mcL 297 268 249 MPV Latest Ref Range: 7.6 - 12.9 fL 10.7 10.5 10.9 Sodium Latest Ref Range: 135 - 145 mmol/L 140 136 133 (L) Potassium Latest Ref Range: 3.5 - 5.0 mmol/L 3.7 3.6 3.6 Chloride Latest Ref Range: 98 - 107 mmol/L 105 99 95 (L) CO2 Latest Ref Range: 22 - 31 mmol/L 19 (L) 18 (L) 21 (L) Anion Gap Latest Ref Range: 5 - 15 mmol/L 16 (H) 19 (H) 17 (H) BUN Latest Ref Range: 8 - 18 mg/dL 33 (H) 30 (H) 44 (H) Creatinine Latest Ref Range: 0.70 - 1.20 mg/dL 2.72 (H) 2.90 (H) 3.11 (H) eGFR Latest Ref Range: >=60 mL/min/1.73 m?? 17 (L) 16 (L) 14 (L) eGFR Latest Ref Range: >=60 mL/min/1.73 m?? 20 (L) 18 (L) 17 (L) Glucose Lvl Latest Ref Range: 65 - 199 mg/dL 121 147 114 Calcium Latest Ref Range: 8.5 - 10.5 mg/dL 9.5 9.5 9.7 Phosphorus Latest Ref Range: 2.5 - 4.5 mg/dL 4.2 4.0 Uric Acid Latest Ref Range: 2.5 - 6.5 mg/dL 8.0 (H) Albumin Latest Ref Range: 3.2 - 5.2 gm/dL 3.8 Ferritin Latest Ref Range: 30 - 400 ng/mL 89 Iron Latest Ref Range: 30 - 150 mcg/dL 46 TIBC Latest Ref Range: 250 - 450 mcg/dL 347 Iron Saturation Latest Ref Range: 20 - 50 % 13 (L) U Protein Ran Latest Ref Range: 0 - 12 mg/dL 243 (H) PTH Latest Ref Range: 15 - 65 pg/mL 68 (H) 47 Prot/Cre Ratio Latest Units: ratio 3.0 U Creatinine Latest Units: mg/dL 80 U Sodium Latest Units: mmol/L <20 U Potassium Latest Units: mmol/L 35 U Chloride Latest Units: mmol/L <20 HepB Surface Ab Quant Latest Units: IU/L <3.5 HepB Surface Ab Unknown Negative HepB Surface Ag Latest Ref Range: Negative Negative Hep B Core Ab Latest Ref Range: Negative Positive (A) Problem/Goal/Assessment/Plan: Problem: Chronic Kidney Disease Goal: Reduce rate of progression Education for CKD Stage specific issues Results: Estimated GFR (MDRD): 14 ml/min/1.73m2 CKD Stage 5 - Potassium level - 3.6 - CO2 level -21 On Sodium Bicarbonate 1300 mg 2x daily - Uric Acid level - 8.0 Changes discussed with RN Specialist: Your kidney function is low but stable. We recommend watchingthe You Tube videos to learn more about options moving forward. We would recommend using Zantac 150 mg twice daily to help with your stomach. Call if you feel differently (consistent symptoms of nausea, vomiting, little appeal for food, itching, change in sleep patterns, worsening energy levels, shortness of breath). These are some of the signs of worsening kidney function. We will see you sooner if you are not feeling well. A/P: Renal function is stable with slight bump in serum creatinine to 3.11 mg/dl It is very hard and challenging to manage her volume status and BP, which is very labile, in order to prevent syncopal events , need to accept sightly higher BP , despite it cause further progression of CKD and some instances fluid overload. She seems euvolemic during this clinic visit , so advised totake lasix 40 mg prn only if she becomes Sob and develop leg edema -Discontinue sodium bicarbonate as she developed fluid overload with this . Problem: Management of Anemia related to Chronic Kidney Disease (CKD) Goal:P Hgb 9.5-10.9 g/dl Ferritin>100ng/ml TSAT>20% Today's Results Hgb - Ferritin - TSAT - Receiving erythropoetic stimulating agent? No Iron Supplement; Date : On oral iron Changes discussed with RN Specialist: We recommend stopping the iron pills. We will replace the iron through infusion as needed. We will set this up at [facility] for you. A/P: Unable to tolerate oral iron so will arrange iv iron infusion in local facility Problem: Hypertension Goal: Urine alb:cr ratio <30mg/g - 140/90, Urine alb:cr ratio > 30mg/g - 130/80 Sodium intake < 2 Gm per day. Results: BP today - 189/110 Changes discussed with RN Specialist:We need to balance your blood pressure - having the episodes of low blood pressure is more dangerous. Continue dosing the Clonidine as needed. Plan to take the Labatelol 400 mg every night. We would like to start you back on amlodipine 2.5 mg at bedtime. A/P: Continue Labetalol 400 mg at bed time and will start amlodipine 2.5 mg daily Continue to monitor BP at home and call us if SBP is less than 90 mmg or more than 200 mmhg Low sodium diet Problem: Proteinuria Goal: Pro:Cr ratio <0.2mg/mg Today's results: Pro:Cr ratio 3.0 on 11/09/18 Changes discussed with RN Specialist: None A/P: No changes at present, unable to start RAAS inhibition due to labile BP and rising serum creatinine Problem: Bone Disease Goal: Stage 3 PTH: 35-70 pg/ml Phos 2.7-4.6 Ca 8.5-10.5mg/dl Stage 4 PTH: 70-110 pg/ml Phos 2.7-4.6 Ca 8.5-10.5mg/dl Stage 5 PTH: 150-300 pg/ml Phos 3.5-5.5 Ca 8.5-10.5mg/dl Results: PTH today -47 ( pt not taking calcitriol) Phos today - 4.0( pt not taking binders) Calcium today - 9.7 Changes discussed with RN Specialist: None A/P: serum phosphorous, calcium and PTH is in normal range . 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 She underwent right renal artery bypass surgery 5 months ago when she developed GAEL on CKD when her serum creatinine was up to 4 mg/dl , subsequently she had wide fluctuation in BP, orthostatic hypotension , recurrent syncopal events and multiple hospital admission for hypertensive urgency and fluid overload. Last month she was admitted in OSH for episodes of pulmonary edema and hypertensive urgency. At present she is not in fluid overload. ??Her renal function is stable with slight up trending serum creatinine to 3.11 mg/dl . BP has been labile for long time but now without orthostatic and syncopal events. ?? Return to CKD clinic: 1 month Tyron Kemp MD - 01/04/2019 1:30 PM EDT I saw and discussed the patient with the fellow and care management team, and I agree with the assessment and plan in their note. 68-year-old female with history of renal artery stenosis status post bypass in spring 2018, patient has continued to have labile blood pressure. As discussed with patient given fluctuation between low blood pressures resulting in an syncopal episodes and high blood pressures resulting in flash pulmonary edema picture we are trying to find therapeutic balance with antihypertensives. Patient's morning blood pressures have been acceptable in the 1 teens to 140 range, and evening blood pressures are higher in the 160-190 range. Patient requires occasional clonidine for systolic pressures greater than 180 mm number. We will add back at this time 2.5 mg of amlodipine to be dose in the evenings, with possibility of titration if patient remains stable. Additionally creatinineis stable from the month previous with an estimated GFR of 16 million. Patient is establishing with [facility] kidney disease care management clinic and will begin the process of end- stage renal disease education and/or planning. She was intolerant of p.o. iron, and we will replace this with IV infusions. Recommend against proton pump inhibitor use if possible and recommend patient trial H2 se for reflux. We will continue to follow patient closely documented in this encounter Plan of Treatment Scheduled Procedures Name Priority Associated Diagnoses Date/Time EGD, UPPER GI ENDOSCOPY Gastroesophageal reflux disease, esophagitis presence not specifi ed documented as of this encounter Visit Diagnoses Diagnosis CKD (chronic kidney disease) stage 4, GF R 15-29 ml/min Chronic kidney disease, Stage IV (severe ) Anemia of chronic renal failure, stage 4 (severe) Uncontrolled hypertension Unspecified essential hypertension Metabolic acidosis Acidosis documented in this encounter Care Teams Janitor Relationship Specialty Start Date End Date Sanjuanita Lee MD PCP - General 03/05/13 12/23/[address] [place] [address] documented as of this encounter
--- OUTSIDE RECORDS SUMMARY | 2022-02-22 23:34 | XMS_ITS | Encounter Summary ---
:1950 Author Organization [facility] [place] [address] Care Team Providers Name Role Phone Sanjuanita Lee MD Primary Care Provider Encounter Details Date Type Department Care Team Description 12/10/2018 Orders Only Nephrology Hypertension at [place] [address] [place] [phone] Social History Tobacco Use Types Packs/Day Years [...] documented as of this encounter Progress Notes Tyron Kemp MD - 12/10/2018 3:52 PM EDT Received call from [facility] that patient was admitted again with Flash Pulmonary edema. Repoertly Salt intake has been limited aside from addition of sodium bicarbonate (added at last clinic visit due to ongoing metabolic acidosis in setting of CKD). Agree with d/c at this time given overloaded status. Also agree with trial of chronic furosemide to see if prevents fluid uptake. Will have to closely monitor renal function on ts medication to make sure not drying out too much. Given baseline renal function believe patient likely will req ~40mg. documented in this encounter Plan of Treatment Scheduled Procedures Name Priority Associated Diagnoses Date/Time EGD, UPPER GI ENDOSCOPY Gastroesophageal reflux disease, esophagitis presence not specifi ed documented as of this encounter Visit Diagnoses Not on filedocumented in this encounter Care Teams Process Worker Relationship Specialty Start Date End Date Sanjuanita Lee MD PCP - General 03/05/13 12/23/[address] [place] [address] documented as of this encounter
--- OUTSIDE RECORDS SUMMARY | 2022-02-22 23:34 | XMS_ITS | Encounter Summary ---
:1950 Author Organization [facility] [place] [address] Care Team Providers Name Role Phone Sanjuanita Lee MD Primary Care Provider Encounter Details Date Type Department Care Team Description 11/12/2018 Telephone Vascular Surgery [place] [facility] [place] [address] Social History Tobacco Use Types Packs/Day [...] this encounter Miscellaneous Notes Telephone Encounter - Geno Fry RN - 11/12/2018 4:26 PM EDT VM from Charlene inquiring why sodium bicar ordered. Chart reviewed and appears this was ordered by Dr. Valentine in Nephrology. Returned call. LM that rx was prescribed by provider in kidney clinic and asked her to call them directly. documented in this encounter Plan of Treatment Scheduled Procedures Name Priority Associated Diagnoses Date/Time EGD, UPPER GI ENDOSCOPY Gastroesophageal reflux disease, esophagitis presence not specifi ed documented as of this encounter Visit Diagnoses Not on filedocumented in this encounter Care Teams Emergency Medicine Specialist Relationship Specialty Start Date End Date Sanjuanita Lee MD PCP - General 03/05/13 12/23/[address] [place] [address] documented as of this encounter
--- OUTSIDE RECORDS SUMMARY | 2022-02-22 23:35 | XMS_ITS | Encounter Summary ---
:1950 Author Organization [facility] [place] [address] Care Team Providers Name Role Phone Sanjuanita Lee MD Primary Care Provider Reason for Visit Reason Onset Date Comments Post-op Problem 09/23/2018 Encounter Details Date Type Department Care Team Description 09/23/2018 Telephone Vascular Surgery Leah Cline MD Post-op Problem [facility] [place] [address] VASCULAR SURGERY [phone] [place], [place] [address] (Wo rk) Social History Tobacco Use Types Packs/Day Years Used Date Former Smoker 0.5 Smokeless Tobacco: Former User Q uit: 07/14/2012 Comments: smoked for ~45 years up to [...] encounter Miscellaneous Notes Telephone Encounter - Leah Cline MD - 09/23/2018 10:25 PM EDT Telephone note Pt is 2 weeks sp R iliac R renal bypass for hypertensive urgency/flash pulm edema. Pt has been having low BPs at home w systolic as low as 60s. Then feels light headed. I will call pt's limousine rental clerk dr rowley tomorrow morning to have him assist w BP management. Leah Cline MD/SANDY, PGY-5 Section of Vascular Surgery, Pager [phone] documented in this encounter Plan of Treatment Scheduled Procedures Name Priority Associated Diagnoses Date/Time EGD, UPPER GI ENDOSCOPY Gastroesophageal reflux disease, esophagitis presence not specifi ed documented as of this encounter Visit Diagnoses Not on filedocumented in this encounter Care Teams Classifications Officer Cc/Cm Relationship Specialty Start Date End Date Sanjuanita Lee MD PCP - General 03/05/13 12/23/[address] [place] [address] documented as of this encounter
--- OUTSIDE RECORDS SUMMARY | 2022-02-22 23:35 | XMS_ITS | Encounter Summary ---
:1950 Author Organization [facility] [place] [address] Care Team Providers Name Role Phone Sanjuanita Lee MD Primary Care Provider Encounter Details Date Type Department Care Team Description 09/28/2018 Office Visit [facility]ascular Surgery at [facility] Re nal artery stenosis [facility] Counts include [facility] [address] [place] V[place] SURGERY [address] [place] [address] [phone] Social History Tobacco Use Types Packs/Day Years [...] Sign Reading Time Taken Comments Blood Pressure 145/69 09/28/2018 1:39 PM EDT Pulse 64 09/28/2018 1:39 PM EDT Temperature - - Respiratory Rate - - Oxygen Saturation - - Inhaled Oxygen Concentration - - Weight 39 kg (86 lb) 09/28/2018 1:39 PM EDT reported Height 152.4 cm (5') 09/28/2018 1:39 PM EDT reported Body Mass Index 16.8 09/28/2018 1:39 PM EDT documented in this encounter Progress Notes Isac Moody MD - 09/28/2018 1:30 PM EDT The patient is status post a right renal artery bypass with vein. The bypass originates from the right iliac artery. This was performed for plaque flash pulmonary edema and elevated creatinine. Postoperatively the patient did well. Her blood pressure is under better control and she has had no further episodes of flash pulmonary edema and the creatinine has decreased from 3 to approximately 1.6. Of note over the past few days the patient has had several syncopal episodes. And today her creatinine is increased to 2.5. She also complains of polyuria. On examination her incisions are well-healed. Impression and plan Every other staple was removed from the wound the remainder of the alex can be removed in 1 week.With regards to her blood pressure appears as though she has low blood pressure accounting for her syncopal episodes. In the office today her systolic blood pressure is around 100. She will be seeing her dry plasterer helper following this visit. I will see her back in the office in 2 weeks to have a duplex analysis of her renal artery bypass on the right. With regards to changing her blood pressure medications around I will leave this up to her dry plasterer helper and primary care physician. documented in this encounter Plan of Treatment Scheduled Procedures Name Priority Associated Diagnoses Date/Time EGD, UPPER GI ENDOSCOPY Gastroesophageal reflux disease, esophagitis presence not specifi ed documented as of this encounter Visit Diagnoses Diagnosis Renal artery stenosis Atherosclerosis of renal artery documented in this encounter Care Teams Division Traffic Superintendent Relationship Specialty Start Date End Date Sanjuanita Lee MD PCP - General 03/05/13 12/23/[address] [place] [address] documented as of this encounter
--- OUTSIDE RECORDS SUMMARY | 2022-02-22 23:35 | XMS_ITS | Encounter Summary ---
:1950 Author Organization [facility] [place] [address] Care Team Providers Name Role Phone Sanjuanita Lee MD Primary Care Provider Encounter Details Date Type Department Care Team Description 09/22/2018 Telephone Vascular Surgery at [facility] Diana Denney, [place] [address] Social History Tobacco Use Types Packs/Day [...] this encounter Miscellaneous Notes Telephone Encounter - Diana Denney RN - 09/22/2018 2:11 PM EDT Incoming p/c from nurse to report the followin) Pt is down to 87 lbs, last outpatient weight I have is 105 lbs on 07/19/18 2) Feeling dizzy past couple of mornings while ambulating to the bathroom, BP 137/70 and 138/58 witha pulse of 65 Msg sent to inpatient RN as an FYI in case a phone call is warranted, Pt does have a f/u appt with Dr. Moody on 09/28/18 documented in this encounter Plan of Treatment Scheduled Procedures Name Priority Associated Diagnoses Date/Time EGD, UPPER GI ENDOSCOPY Gastroesophageal reflux disease, esophagitis presence not specifi ed documented as of this encounter Visit Diagnoses Not on filedocumented in this encounter Care Teams Legal Practice Manager Relationship Specialty Start Date End Date Sanjuanita Lee MD PCP - General 03/05/13 12/23/[address] [place] [address] documented as of this encounter
--- OUTSIDE RECORDS SUMMARY | 2022-02-22 23:35 | XMS_ITS | Encounter Summary ---
:1950 Author Organization [facility] [place] [address] Care Team Providers Name Role Phone Sanjuanita Lee MD Primary Care Provider Encounter Details Date Type Department Care Team Description 09/28/2018 Office Visit Nephrology Hypertension Tyron Kemp MD [facility] [place] [address] Hypertension, essential, benign; [place] [facility] Champ Valentine MBBS [facility] [place] [address] CKD (chronic kidney disease) stage 3, GF R 30-59 ml/[place] [address] Social History Tobacco Use Types Packs/Day [...] Sign Reading Time Taken Comments Blood Pressure 167/91 09/28/2018 3:13 PM EDT Pulse 63 09/28/2018 3:13 PM EDT Temperature - - Respiratory Rate - - Oxygen Saturation 98% 09/28/2018 3:13 PM EDT Inhaled Oxygen Concentration - - Weight 40.4 kg (89 lb) 09/28/2018 3:13 PM EDT Height 152.4 cm (5') 09/28/2018 3:13 PM EDT Body Mass Index 17.38 09/28/2018 3:13 PM EDT documented in this encounter Progress Notes Tyron Kemp MD - 09/28/2018 3:30 PM EDT I saw and discussed the patient with the fellow and I agree with the assessment and plan in his note. Patient is seen in hospital follow-up following revascularization of right kidney. Patient has had wide fluctuation in her blood pressure since discharge with several incidents that sound consistent with orthostasis. This might also explain the rising creatinine since discharge. She continues to havelarge urine output and diligent records per spouse suggest her intake is lagging behind her output. We did measure orthostatic vital signs in clinic and her pressure did drop approximately 40 mmHg. There is also approximately 20 mmHg difference between right and left arms. There is no rigidity in her right arm which is the higher pressure. While conventionally we honor the higher blood pressure, it is possible that we are reading pseudohypertension in this arm. Patient is reluctant to go to the hospital at this point, and she will focus on net positive fluid balance in the coming days. We will alsoconduct a 24-hour monitor at this point to better understand what her blood pressure trend is. Strongly cautioned patient and if further episodes of syncope occur to present to emergency department for work-up of syncope. We will repeat renal labs on Thursday. patient has strong family support Champ Valentine MBBS - 09/28/2018 3:30 PM EDT HYPERTENSION/ NEPHROLOGY CLINIC FOLLOW UP NOTE PATIENT: Charlene Harmon : 1950 HPI: 67 y.o. female with PMHx significant for CKD stage 3GB/4 with baseline creatinine of 1.9-2 mg/dl , HFpEF (EF 54% on 08/2018 TTE), bilateral renal artery stenosis (>60% occlusion bilaterally in 01/2018, progression of R stenosis to occlusion and persistent L stenosis on most recent duplex in 08/2018), 3.7 cm AAA, acute HBV, HTN, HLD, former tobacco use (45 years up to 1ppd at max, quit 10 years ago), who was admitted in [facility] [place] month for hypertensive urgency and flash pulmonary edema requiring BIPAP and ICU admission. She had renal artery angiogram on 09/01/18 which showed widely patent left main renal artery (very mild stenosis at origin but thereafter widely patent) . Designated right renal paco ogram showed occluded right renal artery at origin with reconstitution ~1 cm from origin at branch point, several collateral vessels in area. She had GAEL during the admission with highest creatinine of 2.89 mg/dl . She was treated initially with intravenous diuretics and nicardipine drip. She had Right external iliac to right renal artery bypass with reversed right greater saphenous vein on 09/07/18 . She was discharged home on 09/14/18 on Labetalol 400 mg BID and Nifedipine XL 30 mg BID when serum creatinine improved to 1.64 mg/dl. Since discharge from hospital they have been diligently monitoring and recording home BP and urine output. BP has been very fluctuating through out the day lowest being 60-88 mmhg /35-56 mmhg and highest BP recording was 178/94 mmhg She reportedly passed out four times since discharge for approximately 10-15 seconds each time and regained consciousness after lying in floor. She had felt dizziness and lightheadedness on those days . BP medications has been adjusted few times in last 2 weeks , she is not on Labetalol 300 mg BID and Nifedipine XL 30 mg daily , only if SBP > 100 mmhg Based on recording she has been urinating more than 3 liter of urine per day, she admits that her intake is significantly lagging behind. Has not had episodes of shortness of breath since discharge. At present she feels good, denied dizziness, shortness of breath, chest pain , leg edema, burning urination, chills and fever. Past Medical History: Diagnosis Date ??? AAA (abdominal aortic aneurysm) [id number] angiogram; 3.2 cm infrarenal ??? Constipation ??? Dyslipidemia ??? Hypertension ??? Insomnia ??? Peripheral vascular disease ??? Renal artery stenosis R; per 2009 angiogram Past Surgical History: Procedure Laterality Date ??? HYSTERECTOMY ? ? PRO CATHETER 1ST ORDER W/WO ART PUNCT/FLUORO/S&I BILATERAL Bilateral 09/01/[address] (FIRST-ORDER), MAIN RENAL ART & ANY ACC, W/S&I; ANDREY (WRVU 6.99) performedby Regan Chen MD at [facility] MAIN OR ??? PRO UPPER GI ENDOSCOPY, DIAGNOSTIC 01/20/2014 EGD, UPPER GI ENDOSCOPY performed by Corby Cano MD at [facility] ENDOSCOPY ??? PRO UPPER GI ENDOSCOPY, DIAGNOSTIC N/A 07/28/2017 EGD, UPPER GI ENDOSCOPY performed by Snow Liao MD at [facility] ENDOSCOPY ??? PRO VEIN BYPASS GRAFT, AORTOILIOFEMORAL N/A 09/07/2018 @BYPASS GRAFT, AORTOILIAC W\ VEIN CONDUIT (WRVU 41.88) performed by Isac Moody MD at [facility] MAIN OR Family History Problem Relation Age of Onset ??? Hypertension Mother ??? Cervical Cancer Mother ??? Chronic Obstructive Pulmonary Disease Father ??? Hypertension Sister Social History- , lives with . Does not smoke and drink alcohol Outpatient medications: Current Outpatient Medications on File Prior to Visit Medication Sig Dispense Refill ??? NIFEdipine (PROCARDIA XL) 30 mg Tablet Extended Rel 24 hr Take 30 mg by mouth daily. Take at night if bp >100 ??? acetaminophen (TYLENOL) 500 mg Tablet Take 1 tablet by mouth every 6 hours. 30 tablet 1 ??? isosorbide mononitrate (IMDUR) 30 mg Tablet Sustained Release 24 hr Take 1 tablet by mouth daily. 30 tablet 12 ??? gabapentin (NEURONTIN) 800 mg Tablet Take 1 tablet by mouth nightly. 30 tablet 3 ??? oxyCODONE (ROXICODONE) 5 mg Tablet Take 1 tablet by mouth every 4 hours as needed for Pain. 4 tablet 0 ??? levothyroxine (SYNTHROID) 25 mcg Tablet Take 25 mcg by mouth daily. ??? aspirin 81 mg Tablet, Delayed Release (E.C.) Take 81 mg by mouth daily. ??? cholecalciferol, Vitamin D3, (VITAMIN D) 1,000 unit Tablet Take 1,000 Units by mouth. No current facility-administered medications on file prior to visit. MEDICATIONS: Allergies Allergen Reactions ??? Lisinopril Rise in creatinine ROS: Constitutional - No fevers, chills, weight loss Skin - No rash or itchy skin HEENT - No headaches, visual changes, passed out 10-15 sec this morning Resp - No cough, shortness of breath CV - No chest pain, leg swelling, difficulty breathing lying flat GI - No nausea, vomiting,change in bowel habits/abdominal pain - Increased urine output approx 3 liter per day . No pain urinating or blood in urine. Neuro - No weakness. No numbness/ tingling in extremities. PHYSICAL EXAM: Last value Range last 24 hrs Temperature Temp: -- Heart Rate Heart Rate: 63 Heart Rate: [63-64] Blood Pressure BP: (!) 167/91 BP: (145-167)/(69-91) Respiratory Rate Resp: -- SpO2 SpO2: 98 % SpO2: [98 %] Appearance - Alert, Comfortable. Skin - [...] No asterixis. STUDIES: Labs: CBC: Recent Labs 09/14/18 0516 09/13/18 0550 09/12/18 0110 WBC 10.6* 8.1 8.8 HGB 11.9 10.1* 9.7* PLATELET 266 237 228 Chemistry: Recent Labs 09/14/18 0516 09/13/18 0550 09/12/18 0800 09/12/18 0110 09/08/18 1500 09/07/18 2035 09/03/18 0655 NA 137 139 -- 139 < > 137 < > 137 < > 131* K 4.1 3.3* 4.2 3.6 < > 4.3 < > 4.5 < > 5.2* CL 106 105 -- 105 < > 97* < > 96* < > 99 CO2 17* 20* -- 22 < > 23 < > 25 < > 19* BUN 16 21* -- 25* < > 45* < > 40* < > 50* CREATININE 1.64* 1.73* -- 1.59* < > 2.67* < > 2.85* < > 2.80* GLUCOSE -- -- -- -- -- 129 -- 199 -- 140 < > = values in this interval not displayed. Recent Labs 09/14/18 0516 09/13/18 0550 09/12/18 0110 09/03/18 0035 09/02/18 0329 08/31/18 0015 CALCIUM 8.8 8.3* 8.4* < > 8.2* 8.5 < > 7.9* MAGNESIUM 0.63* 0.65* 0.68* < > 0.95 0.97 < > 0.75 PHOS -- -- -- -- 4.4 6.2* -- 3.5 < > = values in this interval not displayed. LFT's: Recent Labs 06/14/18 1022 BILITOT 0.4 ALBUMIN 3.9 ALKPHOS 57 ALT 11 AST 19 IMPRESSION/ RECOMMENDATIONS: She is 67 y.o. female with PMHx significant for CKD stage 3GB/4 with baseline creatinine of 1.9-2 mg/dl , HFpEF (EF 54% on 08/2018 TTE), bilateral renal artery stenosis (>60% occlusion bilaterally in 01/2018, progression of R stenosis to occlusion and persistent L stenosis on most recent duplex in 08/2018), 3.7 cm AAA, acute HBV, HTN, HLD, former tobacco use (45 years upto 1ppd at max, quit 10 years ago), who was [place] in [facility] [place] month for hypertensive urgency andflash pulmonary edema. She underwent right renal artery bypass in previous admission . She had GAEL on CKD last month with subsequent improvement in lisa function. She was positive for Orthostasis in clinic when her BP drops by 40 mmhg while standing from lying position, but does not have significant BP difference in both arms. Lying BP was 201/93 mmHg and 145/79 mmHg on standing , but she did not have any symptoms . She reportedly had few episodes of syncope at home , unable to determine whether orthostatic hypotension was the cause. She seems to have more than 3 liter urine output every day without adequate fluid intake ,which along with orthostatic episodes could have caused GAEL again leading toserum creatinine 2.39 mg/dl yesterday .She is asymptomatic now , does not have sign and symptoms of uremia , hypertensive on supine position without hyperkalemia and metabolic acidosis. # Hemodynamics- significant fluctuations in BP on home recording . BP in 2 M nephrology clinic on lying down 201/93 mmHg, Sitting 175/84 mmHg and Standing is 145/79 mmhg . Right arm 180 /90 mmHg - Left arm 176/91 mmHg. She has drop in BP by 55 mmhg while standing but was not symptomatic at all. She decline to be admitted in house for intravenous fluid. So advise to drink at least 3 liter of water for next couples of day , Repeat renal function test after 3 days and report us with BP recording at home. For now recommend to continue Labetalol 300 mg BID and Nifedipine XL 30 mg daily. We will do 24 hour ambulatory BP monitoring and adjust anti hypertensive based on that monitoring - Recommend to go to ED for work up if she experience syncopal event or passed out . # GAEL on CKD stage 3 Gb/4- serum creatinine on 09/27/18 was 2.39 mg/dl , most likely due to volume depletion and orthostasis. - Encourage BP monitoring at home , BP control, adequate hydration to keep at least even balance andrepeat BMP in 3 days - Avoid NSAIDS, contrast and nephrotoxin if possible. - Dose medication for current eGFR # Acid/Base balance- Serum bicarbonate on 09/27/18 was 25 meq/dl Does not have metabolic acidosis. # Anemia- Hemoglobin on 09/27 was 12. 9 gram/dl ; is at target # BMD- Latest serum calcium and phosphorous is within normal limit F/u in 3 months or prn if there is any changes in renal function or difficult to manage BP.. Thanks for letting us participate in the care of this patient. Seen and Discussed w/ Dr.Hopley Champ Valentine Nephrology Fellow documented in this encounter Plan of Treatment Scheduled Procedures Name Priority Associated Diagnoses Date/Time EGD, UPPER GI ENDOSCOPY Gastroesophageal reflux disease, esophagitis presence not specifi ed documented as of this encounter Results (ABNORMAL) Basic Metabolic Panel (non-fasting) (11/30/2018 2:29 PM EDT) P athologist Signature Glucose Lvl 147 65 - 199 [facility] mg/dL [facility] Comment: Diabetes: >=200 mg/dL plus symp toms BUN 30 (H) 8 - 18 mg/dL [facility] Creatinine 2.90 (H) 0.70 - 1.20 mg/dL [facility] Sodium 136 135 - 145 [...] estions. Chloride 99 98 - 107 mmol/L [facility] CO2 18 (L) 22 - 31 mmol/L [facility] Anion Gap 19 (H) 5 - 15 mmol/L [facility] Calcium 9.5 8.5 - 10.5 mg/dL [facility] Estimated GFR 16 (L) >=60 mL/min/1.73 m?? [facility] Comment: The eGFR was calculated using the CKD-EP I equation. As with all creatinine based estimates of kidney function, eGFR values calculated with the CKD-EPI equation are not accurate in patients wi th acute kidney failure, extremes of body mass or the acutely ill. [email or web address] eGFR 18 (L) >=60 mL/min/1.73 m?? [facility] Comment: The eGFR was calculated using the CKD-EP I equation. As with all creatinine based estimates of kidney function, eGFR values calculated with the CKD-EPI equation are not accurate in patients wi th acute kidney failure, extremes of body mass or the acutely ill. [email or web address] Specimen Anatomical Collection Method Collection Time Receive d Time (Source) Location / / Volume Laterality Blood specimen 11/30/2018 2:29 PM 019 2:40 (specimen) EDT PM EDT Resulting Agency Comment Spec In Lab Tyron Kemp MD CHEMISTRY ORDERABLES Performing Organization Address City/State/[place] [address] documented in this encounter Visit Diagnoses Diagnosis Hypertension, essential, benign Essential hypertension, benign CKD (chronic kidney disease) stage 3, GF R 30-59 ml/min Chronic kidney disease, Stage III (moder ate) documented in this encounter Care Teams Mercantile Agent Relationship Specialty Start Date End Date Sanjuanita Lee MD PCP - General 03/05/13 12/23/[address] [place] [address] documented as of this encounter
--- OUTSIDE RECORDS SUMMARY | 2022-02-22 23:35 | XMS_ITS | Encounter Summary ---
:1950 Author Organization [facility] [place] [address] Care Team Providers Name Role Phone Sanjuanita Lee MD Primary Care Provider Encounter Details Date Type Department Care Team Description 09/23/2018 Notes Only Vascular Surgery at [facility] Mally Prasad, KYRA [facility] [place] [address] VASCULAR SURGERY [phone] [place] [phone] (Wo rk) Social History Tobacco Use Types [...] documented as of this encounter Progress Notes Mally Prasad, RN - 09/23/2018 3:44 PM EDT [facility] called to report AM dizziness from patient, worse in AM. I called the patient and spoke to her and . Pt has been experiencing BP's as low as 80's/50's. Pt reports dizziness/faintness, especially with ambulation. Pt's called [facility] Nephrology whoadvised them to decrease Nifedipine to 1x/day from BID and to hold the 1x evening dose for SBP<100. Pt has held last dose and will likely hold tonight. Pt is seeing nephrology 09/28/2018 and will callwith significant low or rebound high BPs in meantime. Pt is also experiencing decreased weight/weight loss since d/c though this is less concerning to pt and . Pt is using Boost shakes at home and they both feel her PO intake/nutrition is adequate.They'll continue to monitor. Pt follows-up with Vascular Surgery 09/28/2018 as well and will call in meantime with issues. documented in this encounter Plan of Treatment Scheduled Procedures Name Priority Associated Diagnoses Date/Time EGD, UPPER GI ENDOSCOPY Gastroesophageal reflux disease, esophagitis presence not specifi ed documented as of this encounter Visit Diagnoses Not on filedocumented in this encounter Care Teams Aeroplane Pilot Relationship Specialty Start Date End Date Sanjuanita Lee MD PCP - General 03/05/13 12/23/[address] [place] [address] documented as of this encounter
--- OUTSIDE RECORDS SUMMARY | 2022-02-22 23:35 | XMS_ITS | Encounter Summary ---
:1950 Author Organization [facility] [address] Care Team Providers Name Role Phone Sanjuanita Lee MD Primary Care Provider Encounter Details Date Type Department Care Team Description 09/27/2018 Telephone Vascular Surgery Leah Cline MD [facility] [place] [address] VASCULAR SURGERY [phone] [place] [phone] (Wo rk) Social History Tobacco Use Types [...] Telephone Encounter - Leah Cline MD - 09/27/2018 8:41 PM EDT Telephone note I spoke w pt's Rodolfo last re: pt's BP. Called Rodolfo kent to follow up. Nephrology has been helpful in adjusting antihypertensive medication. Since decreasing doses of nifedipine and labetalol SBP has come up. However when pt takes nifedipine in p.m. Her SBP drops to high 90s the next morning. Continues to have light headedness. In addition per , pt has been peeing out a lot more than she takes in. Today visiting RN terrell labs (CBC and BMP) which were faxed to our office. I will check for results and scan into scan docs tab. Pt is scheduled to see raad hoyt and amrik tomorrow. I will call dr rowley to notify him of persistent issues w occasional low BPs and high UOP. We appreciate the close involvement of nephrology in the care of Ms. Harmon, who's BP and renal stenosis has not been straight forward to manage. Leah Cline MD/SANDY, PGY-5 Section of Vascular Surgery, Pager [phone] documented in this encounter Plan of Treatment Scheduled Procedures Name Priority Associated Diagnoses Date/Time EGD, UPPER GI ENDOSCOPY Gastroesophageal reflux disease, esophagitis presence not specifi ed documented as of this encounter Visit Diagnoses Not on filedocumented in this encounter Care Teams Consultant Dietitian Relationship Specialty Start Date End Date Sanjuanita Lee MD PCP - General 03/05/13 12/23/[address] [place] [address] documented as of this encounter
--- OUTSIDE RECORDS SUMMARY | 2022-02-22 23:35 | XMS_ITS | Encounter Summary ---
:1950 Author Organization [facility] [place] [address] Care Team Providers Name Role Phone Sanjuanita Lee MD Primary Care Provider Reason for Visit Reason Comments Loss of Consciousness Auth/Cert Specialty Diagnoses / Procedures Referred By Contact Refer red To Contact Diagnoses Syncope Syncope, unspecified syncope type Procedures EMERGENCY IPI Referral ID Status Reason Start Date Expiration Date Visits Requ ested Visits Authorized [id number] 1 1 Encounter Details Date Type Department Care Team Description 10/02/2018 - [facility], Aziza Scott MD [facility] [place] [address] Syncope, unspecified syncope type; 10/07/2018 Encounter Care [place] [address] Renal artery stenosis [facility] [place] [address] [place] [id number] Social History Tobacco Use Types Packs/Day Years [...] Sign Reading Time Taken Comments Blood Pressure 166/71 10/07/2018 12:00 PM EDT Pulse 69 10/07/2018 12:00 PM EDT Temperature 36.9 ??C (98.4 ??F) 10/07/2018 12:00 PM EDT Respiratory Rate 15 10/07/2018 12:00 PM EDT Oxygen Saturation 98% 10/07/2018 12:00 PM EDT Inhaled Oxygen Concentration - - Weight 42.3 kg (93 lb 4.1 oz) 10/07/2018 6:12 AM EDT Height 152.4 cm (5') 10/03/2018 1:25 PM EDT Body Mass Index 18.21 10/03/2018 1:25 PM EDT documented in this encounter Discharge Summaries Hernandez Oglesby MD - 10/07/2018 10:50 AM EDT Patient Name: Pretty Harmon Patient Age: 67 y.o. Language: Iranian Race: White Ethnicity: Not nor Admit date: 10/02/2018 Discharge date and time: 10/07/2018 1:39 PM Attending Physician: Hernandez Oglesby MD Discharge Physician: Eliezer Larsen MD Follow-up Recommendations for Providers: 1. She will require f/u with nephrology and vascular surgery. 2. Anti-hypertensive regiment was changed. Current regiment below: Labetalol 300 mg twice daily Imdur 90 mg daily Amlodipine 10 mg daily PRN- 0.1 clonidine for use when BP > 200 systolic 3. Patient was started on atorvastatin. She has been tolerating well without side effects 4. She has continued to have positive orthostatic vital signs during her stay, though she has been asymptomatic and renal anticipates variation in her BP. Ensure maintains adequate intake to remain netpositive. She was on IVF in the hospital and was tolerating po. 5. Creatinine was elevated as an inpatient (possible component of ATN). Continue to monitor for return to baseline as an outpatient. Inpatient Provider Contact Information: For questions regarding this document or issues relating to this hospitalization on the Medical Service, please contact your inpatient physician through the [facility] Fence Supervisor . Issues after hours and on weekends will be handled by the Hospitalist staff on-call. Discharge Diagnoses (Hospital Problems) and Secondary Diagnoses (Chronic Problems): Active Hospital Problems Diagnosis ??? Severe protein-calorie malnutrition ??? Syncope Resolved Hospital Problems No resolved problems to display. Active Non-Hospital Problems Diagnosis ??? Hypertensive urgency ??? Renal artery stenosis ??? Abdominal aortic aneurysm (AAA) without rupture ??? Acute hepatitis ??? Viral hepatitis B acute Operations/Major Procedures: Operations: Other Major Procedures: NA History of Presentation: From internal medicine H&P dated 10/02/2018 Pretty Harmon is a 67 y.o. 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 ?? On September 14, she was discharged from [facility] following right renal artery bypass. She had 3 days of feeling tired but otherwise well, but then began having syncopal episodes since a week and a half ago. These epsids occur only in the morning only per the patient nad her . This AM, at 8am took BP, 110s/60s. Hours later and following a syncopal episode with new purple skin lasting one minute, shewas noted to have BPs 80s/50s with no change in HR (of note, she takes metoprolol). Associated symptoms include acute on chronically decreased appetite, urinary frequency (small volume) without dysuria, and prodrome of lightheadedness. Her has noticed she goes quite, begins staring straight ahead, and becomes unsteady on her feet, at which time he catches her; they both deny that she has everhit her head. She has chronically poor fluid intake, but has been maintaining her usual oral intake per her ; he states she has been putting out more than she has been putting in. On review ofdata recorded at home, she drank at most 350cc/day and urinated around 150cc/day. They deny bowel/bladder incontinence, shaking, or tongue biting during the episodes; she feels great after the episodes and denies post-ictal state. Aside from a blue toe on her right foot following her renal bypass,she denies other rashes or lesions. She denies abnormal bruising, bleeding, melena, or bright red blood per rectum. She endorses a weight loss of 30 pounds since March of last year due to being in and out of the hospital for pulmonary edema and surgery. ?? 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 Over a phone call on 09/21, her nifedipine 30mg was changed to nightly for sBP>100 and her labetalol was reduced from 400mg BID to 300mg BID. She was sent home on a 24h blood pressure monitor to assess if her BP trends were related to her syncopal episodes. Results pending. ?? In the ED, she was found to have orthostatic hypotension (157/76 lying -> 147/70 sitting -> 108/57 standing). HR remained in the 50s-60s on metoprolol. Labs were significant for WBC 7, hbg 11.6 (baseline 12-13), plt 287, Na 132, K 4.2, CO2 23, BUN/Cr 47/2.77, glucose 105, lactate 1.1. Cardiology was consulted for troponin 0.[address] depressions and T wave inversion in the anterolateral leads that was thought to represent demand ischemia and not ACS. A TTE was ordered. CXR showed hyperexpanded lungs without acute infectious process. Hospital Course: #??Syncope # Orthostatic hypotension c/b acute on chronic kidney disease (baseline Cr ~1.6) and demand ischemia # Hx of HFrEF (->54% in 08/2018) # H/o hypothyroidism Patient was admitted reporting recurrent orthostasis. Her BPs were also noted to be consistently elevated. Vascular surgery was consulted for possible occlusion of her arterial graft, and nephrology was consulted for persistent hypertension. On Hospital Day 2 the patient required a nicardipine drip for control of her hypertension, which reached as high as 220 systolic. Over the coming days, we increased her labetalol dosing back to previous (300 mg BID), transitioned nifedipine to amlodipine 10 mg and added imdur at noontime as It was seen that her highest blood pressures happened in the afternoons between 3 and 6 pm. With this regimen, she maintained BP's between 120-180 systolic. While still hypertensive, this regimen did not cause the dangerous lows we had seen previously, and allowed her to ambulate safely without syncope. On 10/06/18 her graft was investigated with a ultrasound, which demonstrated patency and normal flow rates. In total the patient recevied 4 liters of IVF during his stay, on discharge her weight was 93 pounds. Repeat orthostatics revealed decreasing variation in SBP (from roughly change of 90 mmhg lying to standing on day of admission to roughly 40 mmhg difference lying to standing on day of discharge) ?? # Blue toe, likely embolic Evaluated by surgery team who suggest continuation of home ASA and initiation of statin. No surgicalintervention necessary. The toe was not painful or bothersome to the patient. ?? # Chronic Medical Conditions: Continued home??gabapentin at 200mg TID ?? # Constipation Continued Miralax 17g daily and Senna-docusate 2 tabs daily PRN Vital Signs at Discharge: BP: 169/74, Heart Rate: 80, Temp: 36.9 ??C (98.4 ??F), Resp: 14, BMI (Calculated): 17.31 Height: 152.4 cm (5') (10/03/18 1325) Weight: 42.3 kg (93 lb 4.1 oz) (10/07/18 0612) Functional and Cognitive Status: Stable Important Studies and Lab Data: Labs: Recent Labs 10/07/18 0625 10/06/18 0517 10/05/18 0645 WBC 8.0 7.4 8.5 HGB 10.6* 10.8* 11.8 PLATELET 283 265 310 Recent Labs 10/07/18 0625 10/06/18 0517 10/05/18 0645 NA 137 136 135 K 3.8 3.6 3.7 CL 103 99 100 CO2 18* 22 19* BUN 28* 31* 34* CREATININE 2.43* 2.62* 2.48* Recent Labs 10/07/18 0625 10/06/18 0517 10/05/18 0645 CALCIUM 9.1 9.1 9.4 MAGNESIUM 0.80 0.79 0.81 Recent Labs 10/03/18 0329 AST 19 ALT 13 ALKPHOS 72 BILITOT <0.2* BILIDIR 0.1 Recent Labs 10/02/18 2045 10/02/18 1443 TROPONINT 0.01* 0.02* No results for input(s): PHART, ONE3VDX, PO2ART, BBV9WYB in the last 168 hours. Studies: CXR-10/02/2018 IMPRESSION Hyperexpanded lungs but no acute infiltrate or congestive changes. The previous left lower lobe pneumonia has resolved as has the right lower lobe infiltrate and effusion since the prior study 10/06/2018- Renal Artery Duplex Renal Artery Distal, Right ?PSV (cm/s): 37 ?EDV (cm/s): 7 ?RI: 0.80 Mid Pole Renal Parenchyma, Right ?PSV (cm/s): 15 ?EDV (cm/s): 4 ?RI: 0.72 Renal [place]um, Right ?AT (ms): 34 Kidney Length, Right ?Length (cm): 10.2 Renal Vein, Right ?Patent: Patent ? Interpretation: ? Right: Exam again limited by bowel gas. There is normal flow characteristics within the kidney. The renal artery is patent distally with much lower velocities than previous exam (PSV 37 cm/s; previously 82 cm/s). Bypass not visualized. ?? Previous Renal Studies: ?? Date ? Right PSV - RAR ? Left PSV - RAR ? 320 ?3.37 ? 255 ?2.68 ? 45? 1.15 ? 177 ?4.54 ? 163 ?---- ? ---- ? ---- ? 82 ? ---- ? ---- ? ---- Current Exam ?? 37 ? ---- ? ---- ? ---- ?? Pending Studies and Lab Data: none Discharge Conditions/Prognosis: stable Discharge to: home Updated Allergies/ADRs: Allergies Allergen Reactions ??? Lisinopril Rise in creatinine Immunizations Given this Hospitalization: Immunization History Administered Date(s) Administered ??? Hepatitis A Vaccine, Adult 04/07/2014, 12/08/2014, 05/18/2015 ??? Pneumococcal Polyvalent 23 05/18/2015 Discharge Medications: Your Medications New Medications Dose Details amLODIPine 10 mg Tab Commonly known as: NORVASC Take 1 tablet by mouth every evening. 10 mg Quantity: 90 tablet Refills: 3 atorvastatin 20 mg Tab Commonly known as: LIPITOR Take 1 tablet by mouth every evening. 20 mg Quantity: 90 tablet Refills: 3 gabapentin 100 mg Cap Commonly known as: NEURONTIN Take 2 capsules by mouth 3 times daily. Replaces: gabapentin 800 mg Tab 200 mg Quantity: 90 capsule Refills: 12 Continued medications with new dosing Dose Details isosorbide mononitrate 30 mg Tablet sr Commonly known as: IMDUR Take 3 tablets by mouth Daily at Noon. What changed: ?? how much to take ?? when to take this 90 mg Quantity: 30 tablet Refills: 12 Continued medications, unchanged Dose Details acetaminophen 500 mg Tab Commonly known as: TYLENOL Take 1 tablet by mouth every 6 hours. 500 mg Quantity: 30 tablet Refills: 1 aspirin 81 mg Tbec Take 81 mg by mouth daily. 81 mg Refills: 0 labetalol 200 mg Tab Commonly known as: NORMODYNE Take 1.5 tablets by mouth 2 times daily. 300 mg Quantity: 60 tablet Refills: 3 levothyroxine 25 mcg Tab Commonly known as: SYNTHROID Take 25 mcg by mouth daily. 25 mcg Refills: 0 STOPPED Medications gabapentin 800 mg Tab Commonly known as: NEURONTIN Replaced by: gabapentin 100 mg Cap NIFEdipine 30 mg Tr24 Commonly known as: PROCARDIA XL oxyCODONE 5 mg Tab Commonly known as: ROXICODONE Vitamin D 1,000 unit Tab Generic drug: cholecalciferol (Vitamin D3) Smoking Status at Discharge: Social History Tobacco Use Smoking Status Former Smoker ??? Packs/day: 0.50 Smokeless Tobacco Never Used Tobacco Comment smoked for ~45 years up to 1 ppd at max, quit ~2000 Instructions Given to Patient at Discharge: There are no outpatient Patient Instructions on file for this admission. General Instructions Occupational Therapy Recommendations at Discharge ?? Home with family assist as needed as of 10/04/2018 Future Appointments and Orders Future Orders Complete By Expires Referral to Home Health - at DISCHARGE [[id number] CPT(R)] As directed Process Instructions: Scheduling Instructions: Comments: DOCUMENTATION FOR VNA SERVICES (INCLUDING THOSE PATIENTS WITH MEDICARE COVERAGE REQUIRING HOME VNA SERVICES AND/OR HOSPICE SERVICES) PATIENT'S LOCATION: Pretty Harmon [address] [facility] [id number] PHYSICAL ADDRESS:[address] [place] [address] Cell: No relevant phone numbers on file. [phone] (home) Cell: No relevant phone numbers on file. Radio Despatcher's Name: self or spouse In discussion with the attending physician, it is certified that this patient is under their care and that they, or a Nurse Practitioner,Clinical Nurse specialist or Physician Security Auditor who is working directly with them, had a face to face encounter that meets the physician face to face encounter requirements with this patient on 10/07/18 The encounter with the patient was in whole, or in part, for the following medical condition, which is the primary reason for home health care services: syncopy/acute kidney injury In discussion with the provider, it is certified that, based on their findings, the following services are medically necessary for home health services. To provide the following care/treatments with the clinical findings supporting the need for servicesas follows: HOME CARE ORDERS: RN ORDERS:Assess wound or incision, vital signs, cardiopulmonary status, nutrition, hydration, elimination, meds effectiveness and management; reinforce education re health issues Specific RN orders if needed- please obtain orthostatic vital signs, if able PT ORDERS: Continue rehab for endurance, gait stability and strength with mobility and transfers. Home safety evaluation. Home exercise program if appropriate. HOME HEALTH CARE AGENCY: [facility] PHONE: [phone] FAX: [phone] Start of care: 24-48 hours after [facility] DC FOR MEDICARE ONLY: (please delete this section if not Medicare) In discussion with the attending physician, it is certified that the clinical findings support that this patient is homebound because absences from home require considerable and taxing effort due to: Unable to ambulate community surfaces or distances unassisted due to pain, LE weakness or decreased balance and risk for falls Please note that any additional orders needs or changes will need to be obtained from this patient'sPCP: Sanjuanita Lee MD [address] [facility] / [facility] [address] All [facility] agencies which cover the area of patient's residence have been reviewed, either verbally or in writing, and patient/family have chosen the home health care agency noted Questions: Agency name and contact information: [facility] Patient location post discharge: home [address] [place] [phone] What services are requested: Registered Nurse Physical Therapy Start date: Responsible MD post discharge contact info: PCP Discharge References/Attachments None documented in this encounter Discharge Instructions Discharge InstructionsLiz Montoya OT - 10/04/2018 10:44 AM EDT Occupational Therapy Recommendations at Discharge ?? Home with family assist as needed as of 10/04/2018 Patient InstructionsNEliezer rosenthal MD - 10/07/2018 1:41 PM EDT Instruction after leaving the hospital Why you were hospitalized: You were hospitalized for dehydration and dangerous swings in your blood pressure following your kidney surgery. We have changed your blood pressure medications to try to getbetter control of your blood pressure without causing syncope. Call your doctor or seek medical attention if you develop the following: Fainting spells,Fevers, chills, fatigue, rash, shortness of breath, chest pain, abdominal pain or any other symptom that you find concerning Activity level: As tolerated Diet: Heart Healthy Diet Specific instructions related to your condition: Please check your blood pressure three times daily and document your heart rate and blood pressure, as you have been doing. If your blood pressure gets above 200 mmHg, you should take one clonidine tablet. Please document when this occurs. Please continue to try to drink 2 liters or more of fluid each day! This will increase blood flow toyour kidneys Anti-hypertensive regiment was changed. Current regiment below: Labetalol 300 mg twice daily Imdur 90 mg daily Amlodipine 10 mg daily PRN- 0.1 clonidine for use when BP > 200 systolic Follow-Up Appointments - The vascular surgeons are working on scheduling a follow up date - The nephrologists are working on scheduling a follow up date To-Do List Future Orders Complete By Expires Referral to Home Health - at DISCHARGE [[id number] CPT(R)] As directed Process Instructions: Scheduling Instructions: Comments: DOCUMENTATION FOR VNA SERVICES (INCLUDING THOSE PATIENTS WITH MEDICARE COVERAGE REQUIRING HOME VNA SERVICES AND/OR HOSPICE SERVICES) PATIENT'S LOCATION: Pretty Harmon [address] [place] [id number] PHYSICAL ADDRESS:[address] [place] [address] Cell: No relevant phone numbers on file. [phone] (home) Cell: No relevant phone numbers on file. Radio Despatcher's Name: self or spouse In discussion with the attending physician, it is certified that this patient is under their care and that they, or a Nurse Practitioner,Clinical Nurse specialist or Physician Security Auditor who is working directly with them, had a face to face encounter that meets the physician face to face encounter requirements with this patient on 10/07/18 The encounter with the patient was in whole, or in part, for the following medical condition, which is the primary reason for home health care services: syncopy/acute kidney injury In discussion with the provider, it is certified that, based on their findings, the following services are medically necessary for home health services. To provide the following care/treatments with the clinical findings supporting the need for servicesas follows: HOME CARE ORDERS: RN ORDERS:Assess wound or incision, vital signs, cardiopulmonary status, nutrition, hydration, elimination, meds effectiveness and management; reinforce education re health issues Specific RN orders if needed- please obtain orthostatic vital signs, if able PT ORDERS: Continue rehab for endurance, gait stability and strength with mobility and transfers. Home safety evaluation. Home exercise program if appropriate. HOME HEALTH CARE AGENCY: [facility] PHONE: [phone] FAX: [phone] Start of care: 24-48 hours after [facility] DC FOR MEDICARE ONLY: (please delete this section if not Medicare) In discussion with the attending physician, it is certified that the clinical findings support that this patient is homebound because absences from home require considerable and taxing effort due to: Unable to ambulate community surfaces or distances unassisted due to pain, LE weakness or decreased balance and risk for falls Please note that any additional orders needs or changes will need to be obtained from this patient'sPCP: Sanjuanita Lee MD [address] [place] [address] / [facility] [id number] All [facility] agencies which cover the area of patient's residence have been reviewed, either verbally or in writing, and patient/family have chosen the home health care agency noted Questions: Agency name and contact information: [facility] Patient location post discharge: home [address] [place] [phone] What services are requested: Registered Nurse Physical Therapy Start date: Responsible MD post discharge contact info: PCP Your Inpatient Doctor(s) at [facility]: Attending- Hernandez Oglesby MD Resident- ALEXANDER Larsen MD Matchbook Maker- Viviane Glez documented in this encounter Medications at Time of Discharge Medication Sig Dispensed Refills Start Date End Date atorvastatin (LIPITOR) 20 Take 1 tablet by [...] by mouth 0 Delayed Release (E.C.) daily. gabapentin (NEURONTIN) Take 2 capsules by 90 capsule 12 10/0701/04/2019 100 mg Capsule mouth 3 times daily. isosorbide mononitrate Take 3 tablets by 30 tablet 12 201811/04/2018 (IMDUR) 30 mg Tablet mouth Daily at Sustained Release 24 hr Noon. amLODIPine (NORVASC) 10 Take 1 tablet by 90 tablet 3 201801/04/2019 mg Tablet mouth every evening. labetalol (NORMODYNE) 200 Take 1.5 tablets by 60 tablet 3 0 09/28/2018 11/04/2018 mg Tablet mouth 2 times daily. levothyroxine (SYNTHROID) Take 50 mcg by 0 01/20/2019 25 mcg Tablet mouth daily. documented as of this encounter Progress Notes Hernandez Oglesby MD - 10/07/2018 4:58 PM EDT Hospital Medicine - Attending Day of Discharge Documentation Discharge diagnosis Active Hospital Problems Diagnosis ??? Severe protein-calorie malnutrition ??? Syncope Resolved Hospital Problems No resolved problems to display. Secondary Issues Active Non-Hospital Problems Diagnosis ??? Hypertensive urgency ??? Renal artery stenosis ??? Abdominal aortic aneurysm (AAA) without rupture ??? Acute hepatitis ??? Viral hepatitis B acute I have personally seen and examined the patient and they are ready for discharge. I spent >30 minutes (Day of Discharge Code 01793) involved in the final examination of the patient, discussion of the hospital stay, instructions for continuing care to all relevant caregivers, and preparation of discharge records, prescriptions and referral forms. Plans ? Discharge to home ? Follow-up - nephrology to schedule ? Please see the Discharge Summary for complete details of any medication changes and additional plans. Champ Valentine MBBS - 10/07/2018 4:58 PM EDT HYPERTENSION/ NEPHROLOGY PROGRESS NOTE PATIENT: Pretty Harmon : 1950 REASON FOR CONSULTATION: Management of BP and GAEL on CKD Requested by Medicine service ID- [id number] y.o. female with PMHx significant for for CKD stage 3GB/4 with baseline creatinine of 1.9-2 mg/dl , now admitted for syncopal event every morning and fluctuation in BP . She was found to have lying BP of 157/ 75 mmhg, sitting 147/70 and standing 108/57 mmhg on the day of admission with serum creatinine 2.77 mg/dl. She had right renal artery bypass for complete occlusion during previous admission. Subjective: She denied headache, dizziness, and lightheaded ness. Does not have problems in urination. She was persistently hypertensive yesterday and was orthostatic as well without symptoms. BP ranging 145- 177/56-77 mmhg. BP on lying 181/74 mmhg and on standing 131/63 mmhg PHYSICAL EXAM: Last value Range last 24 hrs Temperature Temp: 36.9 ??C (98.4 ??F) Temp: [36.9 ??C (98.4 ??F)-37.4 ??C (99.3 ??F)] Heart Rate Heart Rate: 69 Heart Rate: [69-86] Blood Pressure BP: 166/71 BP: (131-181)/(56-77) Respiratory Rate Resp: 15 Resp: [13-19] SpO2 SpO2: 98 % SpO2: [96 %-99 %] Appearance - Alert, Comfortable. Skin - No exanthem. HEENT - Sclera white. Dry mucous membrane. Chest: Lungs clear to ausculatation w/o wheezes/ rhonchi/ crackles. Heart - S1 and S2 clear w/o murmur, gallop, or rub. JVP not elevated. Abd - Soft. + BS. No bruit. Non tender. Ext - Warm. No cyanosis. No dependent edema. Neuro - No asterixis. STUDIES: Labs: CBC: Recent Labs 10/07/1862410/06/1851610/05/18 06 WBC 8.0 7.4 8.5 HGB 10.6* 10.8* 11.8 PLATELET 283 265 310 Chemistry: Recent Labs 10/07/1862410/06/18 0510/05/18 0645 NA 137 136 135 K 3.8 3.6 3.7 CL 103 99 100 CO2 18* 22 19* BUN 28* 31* 34* CREATININE 2.43* 2.62* 2.48* GLUCOSE 105 106 136 Recent Labs 10/07/18 0625 10/06/18 0517 10/05/18 0645 09/03/18 0035 09/02/18 0329 08/31/18 0015 CALCIUM 9.1 9.1 9.4 < > 8.2* 8.5 < > 7.9* MAGNESIUM 0.80 0.79 0.81 < > 0.95 0.97 < > 0.75 PHOS -- -- -- -- 4.4 6.2* -- 3.5 < > = values in this interval not displayed. LFT's: Recent Labs 10/03/18 03206/14/18 1022 BILITOT <0.2* 0.4 BILIDIR 0.1 -- ALBUMIN 3.4 3.9 ALKPHOS 72 57 ALT 13 AST IMPRESSION/ RECOMMENDATIONS: # Hemodynamics- significant fluctuations in BP in house with positive orthostasis. Recent 24 hours ambulatory monitoring showed average systolic 158 mmhg and diasltolic 76 mmhg and few sporadic episodes when BP was above 220 mmg. . She may have diffuse atherosclerotic disease , non compliant blood vessels including carotid artery . She may possibly have slight fluctuation in BP all the time. We should target BP control to prevent further orthostatic hypotension and syncopal events . Her BP has been more stable and gap in BP while lying and standing has narrowed as compared to past without any symptoms. - Recommend to continue Labetalol 300 mg BID and amlodipine 10 mg at bed time. - Can continue Imdur 90 mg at noon , but is not ideal anti hypertensive medications. -she should check and record BP at least three times a day at home. ??# GAEL on CKD stage 3 Gb/4- Decent urine output with improvement in renal function today. - Unless she has orthostatic hypotension she does not need intravenous fluid . Encourage oral fluid intake to keep even balance. Daily weight and strict input and output recording. - Avoid NSAIDS, contrast and nephrotoxin if possible. - Dose medication for current eGFR ?? # Acid/Base balance- Does not have metabolic acidosis. ?? # Anemia- Hemoglobin is 11.8 gram/dl, at target ?? # BMD- Latest serum calcium and phosphorous is within normal limit Follow up in nephrology clinic in 2-3 weeks after discharge. ?? Thanks for letting us participate in the care of this patient. We will sign off. Seen and Discussed w/ Dr.Graber Champ Valentine Nephrology Fellow Corwin Hendrickson RN - 10/07/2018 4:51 PM EDT Pt alert and orientedx4. Vitals stable on room air. Pt ambulating well on her own. Voiding adequate amounts. No pain reported. Incision clean and intact. Pulses palpable throughout. No numbness/tingling. Pt received discharge orders. AVS printed and reviewed. All questions answered. IV removed. Pt discharged with her with VNA services. Tyron Mariee - 10/07/2018 6:54 AM EDT [facility] Team Inpatient Progress Note ID: Pretty Harmon is a 67 y.o. year old female with past medical history of bilateral renal artery stenosis s/p right renal artery bypass on 09/07/18, HTN, HLD, AAA (3.7cm in 2018), remote hx of hepatitisB s/p treatment, hypothyroidism, and combined systolic and diastolic HF (EF30%, most recently 54% inMay 2018 without valve disease) admitted on 10/02/2018 ( Hospital Day 5 days ) for recurrent syncope, orthostatic hypotension, and GAEL. Active Hospital Problems Diagnosis ??? Severe protein-calorie malnutrition ??? Syncope Resolved Hospital Problems No resolved problems to display. Interval History: - NAEON, slept well - Required one time dose of hydralazine yesterday around 1800 - Increased labetalol to 300 BID and changed imdur to 90 at noon - Orthostatic vital signs this am showed she's still orthostatic - Walked two laps around the unit overnight without issue - Had some nausea yesterday afternoon, reports last BM was Thursday or Thursday (4-5 days ago) Meds: ??? isosorbide mononitrate 90 mg Oral Daily at Noon ??? amLODIPine 10 mg Oral QPM ??? labetalol 300 mg Oral BID ??? atorvastatin 20 mg Oral QPM ??? gabapentin 200 mg Oral TID ??? levothyroxine 25 mcg Oral Daily ??? sodium chloride 0.9 % (flush) 5 mL Intravenous BID ??? heparin (Porcine) 5,000 Units Subcutaneous Q8H WILFRED ??? aspirin 81 mg Oral Daily PRN medications sodium chloride 0.9 % (flush), lidocaine Current Facility-Administered Medications Medication Dose Route Frequency ??? sodium chloride 0.9 % flush 5-20 mL 5-20 mL Intravenous Q1 Min PRN ??? lidocaine (XYLOCAINE) 10 mg/mL (1 %) injection 3 mg 0.3 mL Subcutaneous Once PRN Physical Exam: Last value Range last 24 hrs Temperature Temp: 37.1 ??C (98.8 ??F) Temp: [37.1 ??C (98.8 ??F)-37.4 ??C (99.3 ??F)] Heart Rate Heart Rate: 84 Heart Rate: [69-86] Blood Pressure BP: 131/63 BP: (128-177)/(56-79) Respiratory Rate Resp: 15 Resp: [13-24] SpO2 SpO2: 98 % SpO2: [96 %-99 %] Predominantly 160s-170s Intake/Output Summary (Last 24 hours) at 10/07/2018 0817 Last data filed at 10/07/2018 0800 Gross per 24 hour Intake 2803 ml Output 2275 ml Net 528 ml Patient Vitals for the past 168 hrs: Weight 10/07/18 0612 42.3 kg (93 lb 4.1 oz) 10/06/18 0600 40.6 kg (89 lb 8.1 oz) 10/05/18 0554 41.2 kg (90 lb 13.3 oz) 10/04/18 0419 39.9 kg (87 lb 15.4 oz) 10/03/18 1325 40.2 kg (88 lb 10 oz) 10/03/18 1012 40.2 kg (88 lb 10 oz) Admit wt: 40.2 kg Gen: Well-appearing frail elderly woman resting comfortably in bed, AOx3, NAD Eyes: PERRLA, EOMI, anicteric ENT: Moist mucous membranes, neck supple CV: RRR, S1 S2 normal, without murmurs, rubs, or gallops Respiratory: Clear to auscultation bilaterally, without rales or rhonchi, good inspiratory effort GI: Soft, non-tender to light palpation along transabdominal incision (healing well with alex in place and without erythema or purulent drainage), without distension, no rebound tenderness or guarding, normoactive bowel sounds. Abdominal bruit present in the midline and LUQ Neuro: No focal deficits Musculoskeletal: No joint swelling or pain Ext: No peripheral edema, 2+ peripheral pulses Labs: Recent Labs 10/07/18 0625 10/06/18 0517 10/05/18 0645 WBC 8.0 7.4 8.5 HGB 10.6* 10.8* 11.8 HCT 32.3* 32.0* 35.2* PLATELET 283 265 310 Recent Labs 10/07/18 0625 10/06/18 0517 10/05/18 0645 NA 137 136 135 K 3.8 3.6 3.7 CL 103 99 100 CO2 18* 22 19* BUN 28* 31* 34* CREATININE 2.43* 2.62* 2.48* GLUCOSE 105 106 136 Gap 16 Recent Labs 10/07/18 0625 10/06/18 0517 10/05/18 0645 CALCIUM 9.1 9.1 9.4 MAGNESIUM 0.80 0.79 0.81 Recent Labs 10/03/18 0329 AST 19 ALT 13 ALKPHOS 72 BILITOT <0.2* BILIDIR 0.1 Other significant labs: FENa 10/05: 3.8% Recent Labs 10/03/18 0329 HA1C 5.5 Troponin: 0.02 -> 0.01 No results for input(s): TSH in the last 72 hours. UA 10/04: 100 protein, 50 glucose Imaging: Renal artery duplex 10/06: Right: Exam again limited by bowel gas. There is normal flow characteristics within the kidney. The renal artery is patent distally with much lower velocities than previous exam (PSV 37 cm/s; previously 82 cm/s). Bypass not visualized. Microbiology: No new Assessment and Plan: Pretty Harmon is a 67 y.o. year old female admitted on 10/02/2018 ( Hospital Day 5 days ) for recurrent syncope likely 2/2 orthostatic hypotension in the setting of poor oral intake and antihypertensive medications s/p renal artery bypass surgery, GAEL. We have consulted PT/OT given her history of falls. Disposition pending their recommendations and balance of hypertension control and orthostasis. Nephrology and Vascular Surgery following. Her BP has continued to improve on her current regiment. We will continue to hydrate her to ensure that she is not orthostatic 2/2 volume depletion. We will touch base with nephro and vascular today, and ensure that she has f/u appointments with them. She should be ready for d/c today. # Syncope # Orthostatic hypotension c/b acute on chronic kidney disease (baseline Cr ~1.6) and demand ischemia # Hx of HFrEF (->54% in 08/2018) # H/o hypothyroidism - Re-check orthostatic vital signs today - Amlodipine 10 mg nightly - labetalol at 300 mg BID - Imdur 90 mg at noon - Consult Nephrology (pt of Dr. Kemp's), appreciate recs - Continue home levothyroxine 25mcg qd, recheck TSH - Vascular Surgery following, appreciate recs - Doppler of iliac-renal bypass today - Thyroid cascade # Blue toe, likely embolic - Continue home ASA - Of note, patient not currently taking statin ?? # Chronic Medical Conditions: - Continue home gabapentin at 200mg TID # Constipation - Miralax 17g daily - Senna-docusate 2 tabs daily PRN # Diet: Daily Healthy Menu Choices/Cardiac diet ([facility]-Diet) # DVT prophylaxis: Heparin SQ q8h # Dispo: ISCU, can consider transfer later in the day pending BPs # Code: Full Code Tyron Mariee MD 10/07/2018 Internal Medicine Red Team - Pager [phone] Associated attestation - Hernandez Oglesby MD - 10/08/2018 12:20 AM EDT Attending Attestation Please see Dr. Mariee's note for details of the patient history of presentation and data. I have discussed, reviewed and agree with the documented History, Physical findings, Assessment and Plan of care. 67 y/o with h/o HTN, h/o diastolic CHF, bilateral renal artery stenosis with recent admission with flash pulmonary edema s/p right iliac right renal bypass on 09/07 admitted with syncope and GAEL. Likelycomponent of hypovolemia initially but also has labile BP and now altered BP after bypass. Renal function has not improved - may be component of ATN. Overall improved and plan for dc home today. I have examined the patient myself and personally reviewed all studies. In addition, I certify that I am a D-H credentialed attending provider with admitting privileges and that the patient meets or has met medical necessity to require an inpatient IPI level of care meeting a minimum of two midnights or is on the [facility] inpatient only procedure list (status C) due to: acute kidney injury necessitating close monitoring of fluid balance such as intravenous fluids and/or titration of medication to achieveoptimal effect and minimize the chance of immediate or severe side effects Hayder Fleming MD - 10/06/2018 7:09 PM EDT Vascular Surgery Update Duplex results reviewed, as long as renal artery has flow presume bypass to be patent. Patient can continue ASA 81mg daily for bypass patency. Please continue aggressive fluid resuscitation. Patient and duplex discussed with Dr Fransisco Fleming MD Vascular Surgery Resident Champ Valentine MBBS - 10/06/2018 3:34 PM EDT HYPERTENSION/ NEPHROLOGY PROGRESS NOTE PATIENT: Pretty Harmon : 1950 REASON FOR CONSULTATION: Management of BP and GAEL on CKD Requested by Medicine service ID- 67 y.o. female with PMHx significant for for CKD stage 3GB/4 with baseline creatinine of 1.9-2 mg/dl , now admitted for syncopal event every morning and fluctuation in BP . She was found to have lying BP of 157/ 75 mmhg, sitting 147/70 and standing 108/57 mmhg on the day of admission with serum creatinine 2.77 mg/dl. She had right renal artery bypass for complete occlusion during previous admission. Subjective: She denied headache, dizziness, and lightheaded ness. Does not have problems in urination. She was persistently hypertensive yesterday and was orthostatic as well without symptoms. BP ranging 164- 203/ 71-89 mmhg, averaging 180 s systolic. PHYSICAL EXAM: Last value Range last 24 hrs Temperature Temp: 37.4 ??C (99.3 ??F) Temp: [37 ??C (98.6 ??F)-37.4 ??C (99.3 ??F)] Heart Rate Heart Rate: 83 Heart Rate: [65-83] Blood Pressure BP: 128/77 BP: (128-203)/(65-89) Respiratory Rate Resp: 24 Resp: [12-24] SpO2 SpO2: 99 % SpO2: [97 %-100 %] Appearance - Alert, Comfortable. Skin - No exanthem. HEENT - Sclera white. Dry mucous membrane. Chest: Lungs clear to ausculatation w/o wheezes/ rhonchi/ crackles. Heart - S1 and S2 clear w/o murmur, gallop, or rub. JVP not elevated. Abd - Soft. + BS. No bruit. Non tender. Ext - Warm. No cyanosis. No dependent edema. Neuro - No asterixis. STUDIES: Labs: CBC: Recent Labs 10/06/1851610/05/1845 10/04/18 0444 WBC 7.4 8.5 7.8 HGB 10.8* 11.8 11.9 PLATELET 265 310 309 Chemistry: Recent Labs 10/06/1851610/05/18 0645 10/04/18 0444 NA 136 135 137 K 3.6 3.7 3.7 CL 99 100 102 CO2 22 19* 23 BUN 31* 34* 32* CREATININE 2.62* 2.48* 2.32* GLUCOSE 106 136 99 Recent Labs 10/06/1851610/05/18 0645 10/04/18 0444 09/03/18 0035 09/02/18 0329 08/31/18 0015 CALCIUM 9.1 9.4 9.3 < > 8.2* 8.5 < > 7.9* MAGNESIUM 0.79 0.81 0.85 < > 0.95 0.97 < > 0.75 PHOS -- -- -- -- 4.4 6.2* -- 3.5 < > = values in this interval not displayed. LFT's: Recent Labs 10/03/18 0329 06/14/18 1022 BILITOT <0.2* 0.4 BILIDIR 0.1 -- ALBUMIN 3.4 3.9 ALKPHOS 72 57 ALT 13 11 AST 19 19 IMPRESSION/ RECOMMENDATIONS: # Hemodynamics- significant fluctuations in BP in house with positive orthostasis. Recent 24 hours ambulatory monitoring showed average systolic 158 mmhg and dialtolic 76 mmhg and few sporadic episodeswhen BP was above 220 mmg. . Her BP in house seems stable on most recording except few. Required nicardipine drip last night but BP has been stable for last few hours off nicardipine drip . She may have severe diffuse atherosclerotic disease , non compliant blood vessels including carotid artery . Shemay possibly have slight fluctuation in BP all the time. We should target BP control to prevent further orthostatic hypotension and syncopal events . - Recommend to increase Labetalol 300 mg BID and amlodipine 10 mg at bed time. - Can continue Imdur 90 mg at noon , but is not ideal anti hypertensive medications. -Check orthostatic vital sign daily. ??# GAEL on CKD stage 3 Gb/4- Serum creatinine is slight increased today to 2.62 mg/dl ,despite adequate hydration and decent urine output. - Unless she has orthostatic hypotension she does not need intravenous fluid . Encourage oral fluid intake to keep even balance. Daily weight and strict input and output recording. - Avoid NSAIDS, contrast and nephrotoxin if possible. - Dose medication for current eGFR ?? # Acid/Base balance- Does not have metabolic acidosis. ?? # Anemia- Hemoglobin is 11.8 gram/dl, at target ?? # BMD- Latest serum calcium and phosphorous is within normal limit ?? Thanks for letting us participate in the care of this patient. We will continue to follow Seen and Discussed w/ Dr.Graber Champ Ogimire Nephrology Fellow Associated attestation - Marsha Guerra MD - 10/06/2018 3:50 PM EDT Nephrology Attending Physician visit note Pretty Harmon was seen and examined and discussed with the renal fellow Dr Valentine My findings including history, examination and review of data as in the note above. I agree with therecommendations for increased antihypertensive medications as detailed above. Once serum creatinine is stabilized would introduce ACEI or ARB We will continue to follow. 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 A letter describing our affiliations was reviewed with them and theywere educated about their right to choose where referrals are placed. Patient requests referral to [facility] [employer]. PHONE: [phone] FAX: [phone] Expected date of discharge: ??10/09/18 Referral routed to the Sheet Metal Duct Worker Supervisor for matching with agency/vendor and to provide any required information. Leah Cline MD - 10/06/2018 7:42 AM EDT [facility] consult service Pretty Harmon is a 67 y.o. female status post R iliac to R renal bypass 09/07/18. Admitted with dehydration, syncopal events, and GAEL Int Hx/Subjective Remains orthostatic SBP drops 40 pts when standing Walked yest Cr now up to 2.6 -2.4L over 24 hours O: Temp: [37 ??C (98.6 ??F)-37.1 ??C (98.8 ??F)] Heart Rate: [65-78] Resp: [12-20] BP: (159-191)/(69-88) SpO2: [97 %-99 %] Heart Rate from SpO2: [65 bpm-77 bpm] I/O last 3 completed shifts: In: 495 [P.O.:250; I.V.:245] Out: 2650 [Urine:2650] No intake/output data recorded. Physical Exam R flank incision c/d/i (alex have been removed) Slight cyanosis R 4th toe Strongly palpable R DP pulse, weakly palpable L DP pulse CBC Lab Results Component Value Date WBC 7.4 10/06/2018 Hemoglobin 10.8 (L) 10/06/2018 Hematocrit 32.0 (L) 10/06/2018 Platelets 265 10/06/2018 Lab Results Component Value Date Sodium 136 10/06/2018 Potassium 3.6 10/06/2018 Chloride 99 10/06/2018 CO2 22 10/06/2018 BUN 31 (H) 10/06/2018 Creatinine 2.62 (H) 10/06/2018 Glucose Lvl 106 10/06/2018 AP Pretty Harmon is a 67 y.o. female s/p R iliac to R renal bypass on 09/07 for renal occlusion/flash pulm edema Patient having persistent issues with orthostatic hypotension. Pt remains under resuscitated with persistent orthostatic hypotension. Cr increased from yest 2.6. Baseline Cr ~1.9. Please aggressively resuscitate. Issues with flash pulm edema previously were related to renin/angiotensin cascade in setting of previously occluded right renal. This should not be an issue now that the pt has had ilio renal bypass. Pt's most recent EF is 55%. Would expect Cr to return to baseline of 1.9 and BUN low 20s with hydration. Baseline weight ~94 lbs (pt is currently 89-90 lbs). We will obtain duplex this morning of renal bypass to ensure good patency and that this is not an issue driving the recently elevated Cr. Pt ok to eat after duplex. Please start lipitor 20 if able for peripheral artery disease (calcification L iliac, aneurysm disease). Appreciate medicine and nephrology involvement in Pretty's care. Recommendations discussed w medicine resident Tyron Mariee (pager [phone]) Leah Cline MD/SANDY, PGY-5 Section of Vascular Surgery, Pager [phone] Tyron Mariee - 10/06/2018 6:47 AM EDT [facility] Team Inpatient Progress Note ID: Pretty Harmon is a 67 y.o. year old female with past medical history of bilateral renal artery stenosis s/p right renal artery bypass on 5/14/19, HTN, HLD, AAA (3.7cm in 2018), remote hx of hepatitisB s/p treatment, hypothyroidism, and combined systolic and diastolic HF (EF30%, most recently 54% inMay 2019 without valve disease) admitted on 10/02/2018 ( Hospital Day 4 days ) for recurrent syncope, orthostatic hypotension, and GAEL. Active Hospital Problems Diagnosis ??? Severe protein-calorie malnutrition ??? Syncope Resolved Hospital Problems No resolved problems to display. Interval History: - Hypertensive overnight, received 30 imdur x2 overnight, 40 labetalol - Vascular called, made NPO for doppler of renal iliac bypass, also started maintenance fluids - Nephrology saw, recommended oral intake only and continue labetalol 200 mg BID Meds: ??? amLODIPine 10 mg Oral Daily ??? labetalol 200 mg Oral BID ??? gabapentin 200 mg Oral TID ??? levothyroxine 25 mcg Oral Daily ??? sodium chloride 0.9 % (flush) 5 mL Intravenous BID ??? heparin (Porcine) 5,000 Units Subcutaneous Q8H WILFRED ??? aspirin 81 mg Oral Daily PRN medications sodium chloride 0.9 % (flush), lidocaine Current Facility-Administered Medications Medication Dose Route Frequency ??? sodium chloride 0.9 % flush 5-20 mL 5-20 mL Intravenous Q1 Min PRN ??? lidocaine (XYLOCAINE) 10 mg/mL (1 %) injection 3 mg 0.3 mL Subcutaneous Once PRN Physical Exam: Last value Range last 24 hrs Temperature Temp: 37 ??C (98.6 ??F) Temp: [37 ??C (98.6 ??F)-37.1 ??C (98.8 ??F)] Heart Rate Heart Rate: 65 Heart Rate: [65-79] Blood Pressure BP: 191/80 BP: (101-203)/(55-89) Respiratory Rate Resp: 14 Resp: [12-24] SpO2 SpO2: 97 % SpO2: [96 %-100 %] Intake/Output Summary (Last 24 hours) at 10/06/2018 0648 Last data filed at 10/06/2018 0414 Gross per 24 hour Intake 250 ml Output 2650 ml Net -2400 ml Patient Vitals for the past 168 hrs: Weight 10/06/18 0600 40.6 kg (89 lb 8.1 oz) 10/05/18 0554 41.2 kg (90 lb 13.3 oz) 10/04/18 0419 39.9 kg (87 lb 15.4 oz) 10/03/18 1325 40.2 kg (88 lb 10 oz) 10/03/18 1012 40.2 kg (88 lb 10 oz) Admit wt: 40.2 kg Gen: Well-appearing frail elderly woman resting comfortably in bed, AOx3, NAD Eyes: PERRLA, EOMI, anicteric ENT: Moist mucous membranes, -erythema/exudate, neck supple CV: RRR, S1 S2 normal, without murmurs, rubs, or gallops Respiratory: Clear to auscultation bilaterally, without rales or rhonchi, good inspiratory effort GI: Soft, non-tender to light palpation along transabdominal incision (healing well with alex in place and without erythema or purulent drainage), without distension, no rebound tenderness or guarding, normoactive bowel sounds. Abdominal bruit present in the midline Neuro: No focal deficits Musculoskeletal: No joint swelling or pain Ext: No peripheral edema, 2+ peripheral pulses Labs: Recent Labs 10/06/18 0517 10/05/18 0645 10/04/18 0444 WBC 7.4 8.5 7.8 HGB 10.8* 11.8 11.9 HCT 32.0* 35.2* 35.6* PLATELET 265 310 309 Recent Labs 10/06/18 0517 10/05/18 0645 10/04/18 0444 NA 136 135 137 K 3.6 3.7 3.7 CL 99 100 102 CO2 22 19* 23 BUN 31* 34* 32* CREATININE 2.62* 2.48* 2.32* GLUCOSE 106 136 99 Recent Labs 10/06/18 0517 10/05/18 0645 10/04/18 0444 CALCIUM 9.1 9.4 9.3 MAGNESIUM 0.79 0.81 0.85 Recent Labs 10/03/18 0329 AST 19 ALT 13 ALKPHOS 72 BILITOT <0.2* BILIDIR 0.1 Other significant labs: FENa 10/05: 3.8% Recent Labs 10/03/18 032 HA1C 5.5 Troponin: 0.02 -> 0.01 Recent Labs 10/04/18 0444 TSH 8.83* UA 10/04: 100 protein, 50 glucose Imaging: No new Microbiology: No new Assessment and Plan: Pretty Harmon is a 67 y.o. year old female admitted on 10/02/2018 ( Hospital Day 4 days ) for recurrent syncope likely 2/2 orthostatic hypotension in the setting of poor oral intake and antihypertensive medications s/p renal artery bypass surgery, GAEL. We have consulted PT/OT given her history of falls. Disposition pending their recommendations and balance of hypertension control and orthostasis. Nephrology and Vascular Surgery following. Her BP seems to be slightly improved compared to yesterday. Seeing that her BP starts to spike in the early afternoon, we will try to give her an increased dose of imdur around noon to prevent the spikes. She is also getting a renal US today to evaluate the patency of her graft, which could shed some light on why her BP has been so difficult to control. We will also touch base with nephrology to see if they have any additional insights . # Syncope # Orthostatic hypotension c/b acute on chronic kidney disease (baseline Cr ~1.6) and demand ischemia # Hx of HFrEF (->54% in 08/2018) # H/o hypothyroidism - Re-check orthostatic vital signs today - Amlodipine 10 mg nightly - labetalol at 200 mg BID, can consider increasing nighttime dose if BP still high - Imdur 90 mg at noon - Consult Nephrology (pt of Dr. Kemp's), appreciate recs - Continue home levothyroxine 25mcg qd, recheck TSH - Vascular Surgery following, appreciate recs - Doppler of iliac-renal bypass today - Thyroid cascade - IVF at 100/hr today # Blue toe, likely embolic - Continue home ASA - Of note, patient not currently taking statin ?? # Chronic Medical Conditions: - Continue home gabapentin at 200mg TID # Diet: Daily Healthy Menu Choices/Cardiac diet ([facility]-Diet) # DVT prophylaxis: Heparin SQ q8h # Dispo: ISCU, can consider transfer later in the day pending BPs # Code: Full Code Tyron Mariee MD 10/06/2018 Internal Medicine Red Team - Pager [phone] Associated attestation - Hernandez Oglesby MD - 10/06/2018 10:11 PM EDT Attending Attestation Please see Dr. Mariee's note for details of the patient history of presentation and data. I have discussed, reviewed and agree with the documented History, Physical findings, Assessment and Plan of care. 67 y/o with h/o HTN, h/o diastolic CHF, bilateral renal artery stenosis with recent admission with flash pulmonary edema s/p right iliac right renal bypass on 09/07 admitted with syncope and GAEL. Likelycomponent of hypovolemia initially but also has labile BP and now altered BP after bypass. Orthostatics overall have improved after IVF. Per renal, likely noncompliant blood vessels and may always havesome fluctuation in BP. Goal to minimize low BP with standing given syncope at home. Optimizing regimen. Remains with GAEL on CKD - suspect component of ATN as has not improved despite resuscitation. IfBP range reasonable, goal dc in next 1-2 days. I have examined the patient myself and personally reviewed all studies. In addition, I certify that I am a D-H credentialed attending provider with admitting privileges and that the patient meets or has met medical necessity to require an inpatient IPI level of care meeting a minimum of two midnights or is on the CMS inpatient only procedure list (status C) due to: acute kidney injury necessitating close monitoring of fluid balance such as intravenous fluids and/or titration of medication to achieveoptimal effect and minimize the chance of immediate or severe side effects Jeana Birmingham RN - 10/06/2018 6:24 AM EDT Pt alert and oriented. SBP 140s-190s overnight. Pt received scheduled Labetalol 200 mg po at bedtime. Called to team for PRN med for SBP greater than 180. One dose Inderal 30 mg given with no effect. Labetalol 40 mg IV ordered x1 dose. Pt slept well, denies pain. On room air. HR 60s-70s Sinus rhythm. Orthostatic B/P 8pm: 197/83 lying 174/78 sitting 148/75 standing Champ Valentine MBBS - 10/05/2018 4:20 PM EDT HYPERTENSION/ NEPHROLOGY PROGRESS NOTE PATIENT: Pretty Harmon : 1950 REASON FOR CONSULTATION: Management of BP and GAEL on CKD Requested by Medicine service ID- [id number] y.o. female with PMHx significant for for CKD stage 3GB/4 with baseline creatinine of 1.9-2 mg/dl , now admitted for syncopal event every morning and fluctuation in BP . She was found to have lying BP of 157/ 75 mmhg, sitting 147/70 and standing 108/57 mmhg on the day of admission with serum creatinine 2.77 mg/dl. She had right renal artery bypass for complete occlusion during previous admission. Subjective: This morning she felt better, denied dizziness and lightheadedness on ambulation . Not orthostatic . Denied any problems in urination. No further syncopal events since admission She was transferred to intermediate care unit overnight for nicardipine drip for systolic BP of 209 mmhg, which was stopped overnight. This morning BP was 130/54 mmhg. - Total intake in 24 hours is 1807 and urine output is 1100 PHYSICAL EXAM: Last value Range last 24 hrs Temperature Temp: 37 ??C (98.6 ??F) Temp: [37 ??C (98.6 ??F)-37.4 ??C (99.3 ??F)] Heart Rate Heart Rate: 65 Heart Rate: [65-90] Blood Pressure BP: (!) 203/85 BP: (101-227)/(54-96) Respiratory Rate Resp: 17 Resp: [12-24] SpO2 SpO2: 99 % SpO2: [94 %-100 %] Appearance - Alert, Comfortable. Skin - No exanthem. HEENT - Sclera white. Dry mucous membrane. Chest: Lungs clear to ausculatation w/o wheezes/ rhonchi/ crackles. Heart - S1 and S2 clear w/o murmur, gallop, or rub. JVP not elevated. Abd - Soft. + BS. No bruit. Non tender. Ext - Warm. No cyanosis. No dependent edema. Neuro - No asterixis. STUDIES: Labs: CBC: Recent Labs 10/05/18 0645 06/1044310/03/18328 WBC 8.5 7.8 8.8 HGB 11.8 11.9 12.0 PLATELET 310 309 299 Chemistry: Recent Labs 10/05/1845 10/04/1844310/03/18328 NA 135 137 136 K 3.7 3.7 4.0 CL 100 102 99 CO2 19* 23 22 BUN 34* 32* 42* CREATININE 2.48* 2.32* 2.48* GLUCOSE 136 99 92 Recent Labs 10/05/1845 10/04/1844310/03/1832809/03/18 0035 09/02/1832808/31/18 0015 CALCIUM 9.4 9.3 9.2 < > 8.2* 8.5 < > 7.9* MAGNESIUM 0.81 0.85 0.85 < > 0.95 0.97 < > 0.75 PHOS -- -- -- -- 4.4 6.2* -- 3.5 < > = values in this interval not displayed. LFT's: Recent Labs 10/03/1832806/14/18 1022 BILITOT <0.2* 0.4 BILIDIR 0.1 -- ALBUMIN 3.4 3.9 ALKPHOS 72 57 ALT 13 AST IMPRESSION/ RECOMMENDATIONS: # Hemodynamics- significant fluctuations in BP in house with positive orthostasis. Recent 24 hours ambulatory monitoring showed average systolic 158 mmhg and dialtolic 76 mmhg and few sporadic episodeswhen BP was above 220 mmg. . Her BP in house seems stable on most recording except few. Required nicardipine drip last night but BP has been stable for last few hours off nicardipine drip . She may have severe diffuse atherosclerotic disease , non compliant blood vessels including carotid artery . Shemay possibly have slight fluctuation in BP all the time. We should target BP control to prevent further orthostatic hypotension and syncopal events . - Recommend to continue only Labetalol 200 mg BID for now -Check orthostatic vital sign daily. ??# GAEL on CKD stage 3 Gb/4- serum creatinine on 09/27/18 was 2.39 mg/dl , most likely due to volume depletion, recent contrast exposure and orthostasis and 2.77 mg/dl on admission which is slowly improving after hydration. - Unless she has orthostatic hypotension she does not need intravenous fluid . Encourage oral fluid intake to keep even balance. Daily weight and strict input and output recording. - Avoid NSAIDS, contrast and nephrotoxin if possible. - Dose medication for current eGFR ?? # Acid/Base balance- Does not have metabolic acidosis. ?? # Anemia- Hemoglobin is 11.8 gram/dl, at target ?? # BMD- Latest serum calcium and phosphorous is within normal limit ?? Thanks for letting us participate in the care of this patient. We will continue to follow Seen and Discussed w/ Dr.Graber Champ Valentine Nephrology Fellow Associated attestation - Marsha Guerra MD - 10/05/2018 4:54 PM EDT Nephrology Attending Physician visit note Pretty Harmon was seen and examined and discussed with the renal fellow Dr Valentine My findings including history, examination and review of data as in the note above. I agree with therecommendations detailed above. We will continue to follow. Thank you for involving us in the care of this patient Jaylene Tyron Carlin - 10/05/2018 6:08 AM EDT [facility] Medicine - [facility] Team Inpatient Progress Note ID: Pretty Harmon is a 67 y.o. year old female with past medical history of bilateral renal artery stenosis s/p right renal artery bypass on 09/07/18, HTN, HLD, AAA (3.7cm in 2018), remote hx of hepatitisB s/p treatment, hypothyroidism, and combined systolic and diastolic HF (EF30%, most recently 54% inMay 2019 without valve disease) admitted on 10/02/2018 ( Hospital Day 3 days ) for recurrent syncope, orthostatic hypotension, and GAEL. Active Hospital Problems Diagnosis ??? Severe protein-calorie malnutrition ??? Syncope Resolved Hospital Problems No resolved problems to display. Interval History: - Persistently hypertensive yesterday afternoon, started on nicardipine drip - Nicardipine drip on from 2300 to 0100, then pressures came down sufficiently - Transferred to ISCU - PT/OT saw, recommended home with VNA - Nephrology saw, recommend switching nifedipine to amlodipine. Repeat urine lytes Meds: ??? labetalol 200 mg Oral BID ??? gabapentin 200 mg Oral TID ??? levothyroxine 25 mcg Oral Daily ??? sodium chloride 0.9 % 5 mL Intravenous BID ??? heparin (Porcine) 5,000 Units Subcutaneous Q8H WILFRED ??? aspirin 81 mg Oral Daily PRN medications sodium chloride 0.9 %, lidocaine Current Facility-Administered Medications Medication Dose Route Frequency ??? sodium chloride 0.9 % flush 5-20 mL 5-20 mL Intravenous Q1 Min PRN ??? lidocaine (XYLOCAINE) 10 mg/mL (1 %) injection 3 mg 0.3 mL Subcutaneous Once PRN Physical Exam: Last value Range last 24 hrs Temperature Temp: 37.4 ??C (99.3 ??F) Temp: [36.8 ??C (98.2 ??F)-37.4 ??C (99.3 ??F)] Heart Rate Heart Rate: 74 Heart Rate: [70-123] Blood Pressure BP: 130/54 BP: (120-227)/(54-96) Respiratory Rate Resp: 14 Resp: [12-19] SpO2 SpO2: 97 % SpO2: [94 %-99 %] Intake/Output Summary (Last 24 hours) at 10/05/2018 0824 Last data filed at 10/04/2018 1937 Gross per 24 hour Intake 1807 ml Output 1100 ml Net 707 ml Patient Vitals for the past 168 hrs: Weight 10/05/18 0554 41.2 kg (90 lb 13.3 oz) 10/04/18 0419 39.9 kg (87 lb 15.4 oz) 10/03/18 1325 40.2 kg (88 lb 10 oz) 10/03/18 1012 40.2 kg (88 lb 10 oz) Admit wt: 40.2 kg Gen: Well-appearing frail elderly woman resting comfortably in bed, AOx3, NAD Eyes: PERRLA, EOMI, anicteric ENT: Moist mucous membranes, -erythema/exudate, neck supple CV: RRR, S1 S2 normal, without murmurs, rubs, or gallops Respiratory: Clear to auscultation bilaterally, without rales or rhonchi, good inspiratory effort GI: Soft, non-tender to light palpation along transabdominal incision (healing well with alex in place and without erythema or purulent drainage), without distension, no rebound tenderness or guarding, normoactive bowel sounds. Abdominal bruit present in the midline Neuro: No focal deficits Musculoskeletal: No joint swelling or pain Ext: No peripheral edema, 2+ peripheral pulses Labs: Recent Labs 10/05/1845 10/04/184 10/03/18 032 WBC 8.5 7.8 8.8 HGB 11.8 11.9 12.0 HCT 35.2* 35.6* 35.3* PLATELET 310 309 299 Recent Labs 10/05/18 0645 10/04/18 0444 10/03/18 032 NA 135 137 136 K 3.7 3.7 4.0 CL 100 102 99 CO2 19* 23 22 BUN 34* 32* 42* CREATININE 2.48* 2.32* 2.48* GLUCOSE 136 99 92 Recent Labs 10/05/18 0645 10/04/184 10/03/18 032 CALCIUM 9.4 9.3 9.2 MAGNESIUM 0.81 0.85 0.85 Recent Labs 10/03/18 0329 AST 19 ALT 13 ALKPHOS 72 BILITOT <0.2* BILIDIR 0.1 Other significant labs: FENa > 1.5 Recent Labs 10/03/18 032 HA1C 5.5 Troponin: 0.02 -> 0.01 Recent Labs 10/04/184 10/03/18 0329 TSH 8.83* 6.95* UA - 100 protein, 50 glucose Imaging: No new Microbiology: No new Assessment and Plan: Pretty Harmon is a 67 y.o. year old female admitted on 10/02/2018 ( Hospital Day 3 days ) for recurrent syncope likely 2/2 orthostatic hypotension in the setting of poor oral intake and antihypertensive medications s/p renal artery bypass surgery, GAEL. We have consulted PT/OT given her history of falls. Disposition pending their recommendations and balance of hypertension control and orthostasis. Nephrology and Vascular Surgery following. Her BP seems to have settled out after being persistently elevated yesterday evening. Given it has continued to be low following the nicardipine drip, it seems more likely that her oral medications kicked in. As a result, we will continue her oral regiment as is today to see if she is stable, only increasing the nighttime labetalol as that is when she got hypertensive yesterday. Her weight is rising,and we will also hold off on fluids to see if she is able to keep up with po intake. We will continue to monitor her throughout the day and re-check orthostatics to ensure that she is stable on the current regiment. # Syncope # Orthostatic hypotension c/b acute on chronic kidney disease (baseline Cr ~1.6) and demand ischemia # Hx of HFrEF (->54% in 08/2018) # H/o hypothyroidism - hold fluids today to see if she can keep up po - Re-check orthostatic vital signs today - Continue nifedipine 60 mg nightly - labetalol at 200 mg this am, 300 mg this pm. - Consult Nephrology (pt of Dr. Kemp's), appreciate recs - Continue home levothyroxine 25mcg qd, recheck TSH - Vascular Surgery following, appreciate recs - Thyroid cascade # Blue toe, likely embolic - Continue home ASA - Of note, patient not currently taking statin ?? # Chronic Medical Conditions: - Continue home gabapentin at 200mg TID # Diet: Daily Healthy Menu Choices/Cardiac diet ([facility]-Diet) # DVT prophylaxis: Heparin SQ q8h # Dispo: ISCU, can consider transfer later in the day # Code: Full Code Tyron Mariee MD 10/05/2018 Internal Medicine Red Team - Pager [phone] Associated attestation - Hernandez Oglesby MD - 10/05/2018 5:45 PM EDT Attending Attestation Please see Dr. Mariee's note for details of the patient history of presentation and data. I have discussed, reviewed and agree with the documented History, Physical findings, Assessment and Plan of care. 67 y/o with h/o HTN, h/o diastolic CHF (EF 54%), bilateral renal artery stenosis with recent admission with flash pulmonary edema s/p right iliac right renal bypass on 09/07 admitted with syncope and GAEL. Likely component of hypovolemia initially but also has labile BP and now altered BP after bypass. Orthostatics SBP 160 to 100 today which is improved. Discussing with renal likely noncompliant blood vessels and may always have some fluctuation in BP. Goal to minimize low BP with standing given syncope at home. Change to amlodipine, continue labetalol and monitor. Monitoring intake without IVF todayto see if can keep even (weight up to 90lb). In ISCU in case of need for nicardipine again. I have examined the patient myself and personally reviewed all studies. In addition, I certify that I am a [facility] credentialed attending provider with admitting privileges and that the patient meets or has met medical necessity to require an inpatient IPI level of care meeting a minimum of two midnights or is on the [facility] inpatient only procedure list (status C) due to: acute kidney injury necessitating close monitoring of fluid balance such as intravenous fluids and/or titration of medication to achieveoptimal effect and minimize the chance of immediate or severe side effects Jeana Birmingham RN - 10/05/2018 6:03 AM EDT Pt arrived from the [facility] with SBP in the low 200s despite having po BP meds, Nicardipine gtt started at 2315 at 2.5mg/hr. B/P closely monitored, goal is to maintain SBP 140-180. Nicardipine gtt off at 0115 after SBP came down to 140. Sinus HR 70s. Pt alert and oriented, denies any dizziness or headache. Quinten George RN - 10/04/2018 11:08 PM EDT Pt transferred to ISCU for management of persistent HTN. Afebrile and VSS though BP remain 210s/90s.Pt asymtomatic, no reports of RICHARDSON or dizziness/weakness while ambulating. Report given to ISCU RN andtransferred to unit in bed w/ Tele monitor and RN. Leah Cline MD - 10/04/2018 12:31 PM EDT Vasc consult service Pretty Haromn is a 67 y.o. female status post R iliac to R renal bypass 09/07/18. Admitted with dehydration and GAEL Int Cr down to 2.3 (baseline Cr 1.6-1.9) Walked pod x 1 - no light headedness +1.7L yesterday Alex at abd incision removed O: Temp: [37 ??C (98.6 ??F)] Heart Rate: [70-76] Resp: [14] BP: (129-190)/(69-100) SpO2: [99 %] Heart Rate from SpO2: [78 bpm-85 bpm] I/O last 3 completed shifts: In: 2520 [P.O.:1620; I.V.:900] Out: 1475 [Urine:1475] I/O this shift: In: 480 [P.O.:480] Out: 600 [Urine:600] Physical Exam R flank incision c/d/i, alex removed Slight cyanosis R 4th toe Strongly palpable R DP pulse, weakly palpable L DP pulse AP Pretty Harmon is a 67 y.o. female 3.5 wks sp R iliac to R renal bypass for renal occlusion/flash pulm edema No episodes flash pulm edema since surgery. Being gently rehydrated. Likely will need to be +1-1.5L positive for 2-3 days until euvolemic. Baseline wt ~92 lbs (currently 88 lbs) Appreciate medicine and nephrology assistance in BP management We will cont to follow closely w you Leah Cline MD/SANDY, PGY-5 Section of Vascular Surgery, Pager [phone] Nava Ace, RD - 10/04/2018 9:14 AM EDT Nutrition Initial Note Pretty Harmon is a 67 y.o. female Reason for intervention: Consult Nutrition Recommendations: Boost BID with meals Continue with diet as ordered - patient preference Patient Active Problem List Diagnosis Code ??? Acute hepatitis B17.9 ??? Viral hepatitis B acute B16.9 ??? Abdominal aortic aneurysm (AAA) without rupture I71.4 ??? Renal artery stenosis I70.1 ??? Hypertensive urgency I16.0 ??? Syncope R55 Past Medical History: Diagnosis Date ??? AAA (abdominal aortic aneurysm) [id number] angiogram; 3.2 cm infrarenal ??? Constipation ??? Dyslipidemia ??? Hypertension ??? Insomnia ??? Peripheral vascular disease ??? Renal artery stenosis R; per 2009 angiogram Active Orders Diet Daily Healthy Menu Choices/Cardiac diet ([facility]-Diet) Frequency: Effective Now Number of Occurrences: Until Specified Admit Weight: 40.2 kg Estimated body mass index is 17.18 kg/m?? as calculated from the following: Height as of this encounter: 152.4 cm (5'). Weight as of this encounter: 39.9 kg (87 lb 15.4 oz). [place] Body Weight (IBW): Female patients must weigh at least 45.5 kg to calculate ideal body weight UBW: 110# Wt & BMI By Encounter Date ED to Hosp-Admission (Current) from 10/02/[address] [facility] Office Visit from 09/28/2018 in Nephrology Hypertension at [place] Weight 39.9 kg (87 lb 15.4 oz) 1 10/04/2018 0419 40.4 kg (89 lb) 1 09/28/2018 1513 BMI 17.31 1 10/03/2018 1325 17.38 1 09/28/2018 1513 Previous weights: 08/29/18: 47.4 kg Weight loss of 15.8% x 26 days from 47.4 kg (08/29) to 39.9 kg (10/04) and presents with lean muscle loss at clavicles and subcutaneous fat loss at triceps consistent with severe protein calorie malnutrition. Estimated needs: Calories: 2238-6359 Protein: 48 grams/day Today's medications: Neurontin, synthroid, LR completed x 1L Lab Results Component Value Date NA 137 10/04/2018 K 3.7 10/04/2018 CL 102 10/04/2018 CO2 23 10/04/2018 BUN 32 (H) 10/04/2018 CREATININE 2.32 (H) 10/04/2018 GLUCOSE 99 10/04/2018 MAGNESIUM 0.85 10/04/2018 CALCIUM 9.3 10/04/2018 PHOS 4.4 09/03/2018 AST 19 10/03/2018 ALT 13 10/03/2018 ALKPHOS 72 10/03/2018 BILITOT <0.2 (L) 10/03/2018 BILIDIR 0.1 10/03/2018 CRP <0.2 06/14/2018 Last Bowel Movement: 10/03/18 Assessment: Pretty Harmon is a 67 y.o. year old female with past medical history of bilateral renal artery stenosis s/p right renal artery bypass on 09/07/18, HTN, HLD, AAA (3.7cm in 2018),??remote hx of hepatitis B s/p treatment,??hypothyroidism, and combined systolic and diastolic HF (EF30%, most recently 54% in August 2018 without valve disease) admitted on 10/02/2018 ( Hospital Day 1 day ) for recurrent syncope, orthostatic hypotension, and GAEL. Presents with severe protein calorie malnutrition as addressed above. Met with patient to discuss current weight. She reports weight has improved (1#) from home weight, and she felt she was doing pretty well. has been making her eat more, and she has been drinking 1-2 Ensure shakes daily at home. Previously consuming just 1 large meal daily which was pretty substantial per her report. Usual intake [employer] was no breakfast, nuts as a morning snack, PB and fluff orPB and J for lunch. Avoid processed meats due to the sodium content; chooses other low sodium foods 2'HTN. Currently do not feel refeeding is of concern as PO intake [employer] was improving from her baseline. Current electrolytes reviewed. Open to drinking Boost while here. Feels she did very well at breakfast (consumed about 50%) as she does not normally eat breakfast. Offered encouragement. Denies any additional needs and reports finding foods on the menu she likes. TAMI Lara Pager: [phone] Eliezer Larsen MD - 10/04/2018 7:35 AM EDT [facility] Medicine - [facility] Team Inpatient Progress Note ID: Pretty Harmon is a 67 y.o. year old female with past medical history of bilateral renal artery stenosis s/p right renal artery bypass on 09/07/18, HTN, HLD, AAA (3.7cm in 2018), remote hx of hepatitisB s/p treatment, hypothyroidism, and combined systolic and diastolic HF (EF30%, most recently 54% inMay 2019 without valve disease) admitted on 10/02/2018 ( Hospital Day 2 days ) for recurrent syncope, orthostatic hypotension, and GAEL. Active Hospital Problems Diagnosis ??? Severe protein-calorie malnutrition ??? Syncope Resolved Hospital Problems No resolved problems to display. Interval History: - No acute events overnight - Telemetry without evidence of arrhythmia, HR wnl Meds: ??? bolus IV fluid Intravenous Once ??? NIFEdipine 30 mg Oral Nightly ??? labetalol 100 mg Oral BID ??? gabapentin 200 mg Oral TID ??? levothyroxine 25 mcg Oral Daily ??? sodium chloride 0.9 % 5 mL Intravenous BID ??? heparin (Porcine) 5,000 Units Subcutaneous Q8H WILFRED ??? aspirin 81 mg Oral Daily PRN medications hydrALAZINE, sodium chloride 0.9 %, lidocaine Current Facility-Administered Medications Medication Dose Route Frequency ??? hydrALAZINE (APRESOLINE) injection 5 mg 5 mg Intravenous Q6H PRN ??? sodium chloride 0.9 % flush 5-20 mL 5-20 mL Intravenous Q1 Min PRN ??? lidocaine (XYLOCAINE) 10 mg/mL (1 %) injection 3 mg 0.3 mL Subcutaneous Once PRN Physical Exam: Last value Range last 24 hrs Temperature Temp: 36.8 ??C (98.2 ??F) Temp: [36.8 ??C (98.2 ??F)-37.2 ??C (99 ??F)] Heart Rate Heart Rate: 74 Heart Rate: [70-78] Blood Pressure BP: 174/76 BP: (129-220)/(69-100) Respiratory Rate Resp: 16 Resp: [14-18] SpO2 SpO2: 98 % SpO2: [98 %-99 %] Intake/Output Summary (Last 24 hours) at 10/04/2018 1358 Last data filed at 10/04/2018 1006 Gross per 24 hour Intake 2640 ml Output 600 ml Net 2040 ml Patient Vitals for the past 168 hrs: Weight 10/04/18 0419 39.9 kg (87 lb 15.4 oz) 10/03/18 1325 40.2 kg (88 lb 10 oz) 10/03/18 1012 40.2 kg (88 lb 10 oz) Admit wt: 40.2 kg Gen: Well-appearing frail elderly woman resting comfortably in bed, AOx3, NAD Eyes: PERRLA, EOMI, anicteric ENT: Moist mucous membranes, -erythema/exudate, neck supple CV: RRR, S1 S2 normal, without murmurs, rubs, or gallops Respiratory: Clear to auscultation bilaterally, without rales or rhonchi, good inspiratory effort GI: Soft, tender along transabdominal incision (healing well with alex in place and without erythema or purulent drainage), slightly distended, no rebound tenderness or guarding, normoactive bowel sounds Neuro: No focal deficits Musculoskeletal: No joint swelling or pain Ext: No peripheral edema, 2+ peripheral pulses Labs: Recent Labs 10/04/1844310/03/1832810/02/18 1443 WBC 7.8 8.8 7.0 HGB 11.9 12.0 11.6* HCT 35.6* 35.3* 34.4* PLATELET 309 299 287 Recent Labs 10/04/1844310/03/1832810/02/18 1443 NA 137 136 132* K 3.7 4.0 4.2 CL 102 99 94* CO2 23 22 23 BUN 32* 42* 47* CREATININE 2.32* 2.48* 2.77* GLUCOSE 99 92 105 Recent Labs 10/04/1844310/03/1832810/02/18 1443 CALCIUM 9.3 9.2 9.7 MAGNESIUM 0.85 0.85 -- Recent Labs 10/03/18328 AST 19 ALT 13 ALKPHOS 72 BILITOT <0.2* BILIDIR 0.1 Other significant labs: FENa > 1.5 Recent Labs 10/03/18328 HA1C 5.5 Troponin: 0.02 -> 0.01 Recent Labs 10/04/1844310/03/18328 TSH 8.83* 6.95* Imaging: XR Chest PA & Lateral (Generic) Final Result Hyperexpanded lungs but no acute infiltrate or congestive changes. The previous left lower lobe pneumonia has resolved as has the right lower lobe infiltrate and effusion since the prior study Thank you for letting us participate in the care of this patient. For questions regarding this report, please contact the number below. Microbiology: Microbiology Results (Last 30 days) No results found for the last 720 hours. Blood cultures not obtained Assessment and Plan: Pretty Harmon is a 67 y.o. year old female admitted on 10/02/2018 ( Hospital Day 2 days ) for recurrent syncope likely 2/2 orthostatic hypotension in the setting of poor oral intake and antihypertensive medications s/p renal artery bypass surgery, GAEL. We have consulted PT/OT given her history of falls. Disposition pending their recommendations and balance of hypertension control and orthostasis. Nephrology and Vascular Surgery following. We will increase BP regimen to include low-dose labetalol and home nifedipine. I suspect broad fluctuation in blood pressure and elevated creatinine as indication she is intravascularly deplete and thus will provide 1 to 2 liters of fluid via the IV today. We will trend orthostatics daily. I suspect her blood pressure will be easier to manage medically once volume replete. I'd prefer to avoid additional beta blockade, as she has evidenced that she has minimal heart rate compensation with previous syncopal episodes. # Syncope # Orthostatic hypotension c/b acute on chronic kidney disease (baseline Cr ~1.6) and demand ischemia # Hx of HFrEF (->54% in 08/2018) # H/o hypothyroidism - Continue fluid with goal of 1-2 liters positive today, as tolerated - Trend orthostatic vital signs - Continue nifedipine back to home dose of 30mg nightly (extended release), can increase to 60 if bp's high throughout day - labetalol at only 100mg BID per Nephrology - Consult Nephrology (pt of Dr. Kemp's) - Continue home levothyroxine 25mcg qd, recheck TSH - Vascular Surgery following, appreciate recs - Thyroid cascade # Blue toe, likely embolic - Continue home ASA - Of note, patient not currently taking statin ?? # Chronic Medical Conditions: - Continue home gabapentin at 200mg TID # Diet: Daily Healthy Menu Choices/Cardiac diet ([facility]-Diet) # DVT prophylaxis: Heparin SQ q8h # Dispo: Possible d/c to home within 24-48h pending course # Code: Full Code Eliezer Larsen MD 10/04/2018 Internal Medicine Red Team - Pager [phone] Associated attestation - Hernandez Oglesby MD - 10/04/2018 4:48 PM EDT Attending Attestation Please see Dr. Larsen's note for details of the patient history of presentation and data. I have discussed, reviewed and agree with the documented History, Physical findings, Assessment and Plan of care. 67 y/o with h/o HTN, h/o diastolic CHF (EF 54%), bilateral renal artery stenosis with recent admission with flash pulmonary edema now s/p right iliac right renal bypass on 09/07 admitted with syncope and GAEL. Syncope likely orthostatic/from low BP in setting of labile BP control s/p bypass. Also was net negative (baseline lower po intake) and weight below baseline. Volume expanding monitoring volume status (currently sating well on RA). Adjusting BP medications with variable BP with ongoing intermittent hypertension. FeNa 1.6% - GAEL likely in part pre-renal with possible component of early ATN (no casts on UA). Appreciate input from nephrology. Monitoring orthostatics. I have examined the patient myself and personally reviewed all studies. In addition, I certify that I am a D-H credentialed attending provider with admitting privileges and that the patient meets or has met medical necessity to require an inpatient IPI level of care meeting a minimum of two midnights or is on the [facility] inpatient only procedure list (status C) due to: acute kidney injury necessitating close monitoring of fluid balance such as intravenous fluids and/or titration of medication to achieveoptimal effect and minimize the chance of immediate or severe side effects Nina Joya MD - 10/03/2018 7:17 AM EDT [facility] Team Inpatient Progress Note ID: Pretty Harmon is a 67 y.o. year old female with past medical history of bilateral renal artery stenosis s/p right renal artery bypass on 09/07/18, HTN, HLD, AAA (3.7cm in 2018), remote hx of hepatitisB s/p treatment, hypothyroidism, and combined systolic and diastolic HF (EF30%, most recently 54% inMay 2019 without valve disease) admitted on 10/02/2018 ( Hospital Day 1 day ) for recurrent syncope, orthostatic hypotension, and GAEL. Active Hospital Problems Diagnosis ??? Syncope Resolved Hospital Problems No resolved problems to display. Interval History: - No acute events overnight - Received 1.5L LR yesterday - Orthostatics this AM: 202/80 lying -> 176/82 sitting -> 120/68 standing - Feels very well today, ambulated to and from restroom with no presyncopal symptoms - Telemetry without evidence of arrhythmia, HR wnl Meds: ??? gabapentin 200 mg Oral TID ??? levothyroxine 25 mcg Oral Daily ??? NIFEdipine 20 mg Oral Nightly ??? sodium chloride 0.9 % 5 mL Intravenous BID ??? heparin (Porcine) 5,000 Units Subcutaneous Q8H WILFRED ??? aspirin 81 mg Oral Daily PRN medications sodium chloride 0.9 %, lidocaine Current Facility-Administered Medications Medication Dose Route Frequency ??? sodium chloride 0.9 % flush 5-20 mL 5-20 mL Intravenous Q1 Min PRN ??? lidocaine (XYLOCAINE) 10 mg/mL (1 %) injection 3 mg 0.3 mL Subcutaneous Once PRN Physical Exam: Last value Range last 24 hrs Temperature Temp: 36.8 ??C (98.2 ??F) Temp: [36.4 ??C (97.5 ??F)-37 ??C (98.6 ??F)] Heart Rate Heart Rate: 66 Heart Rate: [54-73] Blood Pressure BP: 194/78 BP: (108-208)/(57-92) Respiratory Rate Resp: 18 Resp: [16-22] SpO2 SpO2: 98 % SpO2: [96 %-98 %] Intake/Output Summary (Last 24 hours) at 10/03/2018 0717 Last data filed at 10/03/2018 0700 Gross per 24 hour Intake -- Output 675 ml Net -675 ml No data found. Admit wt: Gen: Well-appearing frail elderly woman resting comfortably in bed, AOx3, NAD Eyes: PERRLA, EOMI, anicteric ENT: Moist mucous membranes, -erythema/exudate, neck supple CV: RRR, S1 S2 normal, without murmurs, rubs, or gallops Respiratory: Clear to auscultation bilaterally, without rales or rhonchi, good inspiratory effort GI: Soft, tender along transabdominal incision (healing well with alex in place and without erythema or purulent drainage), slightly distended, no rebound tenderness or guarding, normoactive bowel sounds Skin: Normal temperature and turgor, cyanosis and tenderness at dorsal fourth toe, no other lesions,rashes, or petechiae Neuro: No focal deficits Musculoskeletal: No joint swelling or pain Ext: No peripheral edema, 2+ peripheral pulses Labs: Recent Labs 10/03/1832810/02/18 1443 WBC 8.8 7.0 HGB 12.0 11.6* HCT 35.3* 34.4* PLATELET 299 287 Recent Labs 10/03/189 10/02/18 1443 NA 136 132* K 4.0 4.2 CL 99 94* CO2 22 23 BUN 42* 47* CREATININE 2.48* 2.77* GLUCOSE 92 105 Recent Labs 10/03/189 10/02/18 1443 CALCIUM 9.2 9.7 MAGNESIUM 0.85 -- Recent Labs 10/03/18 032 AST 19 ALT 13 ALKPHOS 72 BILITOT <0.2* BILIDIR 0.1 Other significant labs: UA Pending Urine lytes, cr pending Recent Labs 10/03/18328 HA1C 5.5 Troponin: 0.02 -> 0.01 Recent Labs 10/03/18 032 TSH 6.95* Imaging: XR Chest PA & Lateral (Generic) Final Result Hyperexpanded lungs but no acute infiltrate or congestive changes. The previous left lower lobe pneumonia has resolved as has the right lower lobe infiltrate and effusion since the prior study Thank you for letting us participate in the care of this patient. For questions regarding this report, please contact the number below. Microbiology: Microbiology Results (Last 30 days) No results found for the last 720 hours. Blood cultures not obtained Assessment and Plan: Pretty Harmon is a 67 y.o. year old female admitted on 10/02/2018 ( Hospital Day 1 day ) for recurrent syncope likely 2/2 orthostatic hypotension in the setting of poor oral intake and antihypertensive medications s/p renal artery bypass surgery, GAEL. Have consulted PT/OT given her history of falls. Disposition pending their recommendations and balance of hypertension control and orthostasis. Nephrology and Vascular Surgery following. Will increase BP regimen to include low-dose labetalol and home nifedipine and Imdur. Will give additional liter ofIV hydration throughout the day and trend orthostatics daily. Currently she is asymptomatic. # Syncope # Orthostatic hypotension c/b acute on chronic kidney disease (baseline Cr ~1.6) and demand ischemia # Hx of HFrEF (->54% in 08/2018) # H/o hypothyroidism - UA unremarkable - Peak troponin 0.02 - s/p 1.5L LR - Trend orthostatic vital signs - Cancel TTE (last in August) - Telemetry - Increase nifedipine back to home dose of 30mg nightly (extended release) - Gave 1 dose of home isosorbide mononitrate 30mg daily this AM - Hold Imdur as we restart labetalol - Restart home labetalol at only 100mg BID per Nephrology - Consult Nephrology (pt of Dr. Kemp's) - Continue home levothyroxine 25mcg qd, recheck TSH - Vascular Surgery following, appreciate recs - Repeat 1L bolus at 100cc/hr for ongoing orthostatic hypotension - Thyroid cascade # Blue toe, likely embolic - Continue home ASA - Of note, patient not currently taking statin ?? # Chronic Medical Conditions: - Continue home gabapentin at 200mg TID # Diet: Daily Healthy Menu Choices/Cardiac diet ([facility]-Diet) # DVT prophylaxis: Heparin SQ q8h # Dispo: Possible d/c to home within 24-48h pending course # Code: Full Code Nina Joya MD 10/03/2018 Internal Medicine Red Team - Pager [phone] Associated attestation - Hernandez Oglesby MD - 10/03/2018 8:58 PM EDT Attending Attestation Please see Dr. Joya's note for details of the patient history of presentation and data. I have discussed, reviewed and agree with the documented History, Physical findings, Assessment and Plan of care. 67 y/o with h/o HTN, combined systolic and diastolic CHF (more recent EF 54% but had been 30% in past), bilateral renal artery stenosis with recent admission with flash pulmonary edema now s/p right iliac right renal bypass on 09/07 now presenting with syncope and GAEL. Syncope likely orthostatic/from low BP in setting of improved BP control s/p bypass. Lower concern for arrhythmia. UA without infection. Today remains orthostatic with supine hypertension. Will give additional IVF through today (no signs of overload) and reassess orthostatics. May be balance of supine HTN and orthostasis. DId have flash pulmonary edema last admit from HTN. Goal SBP 150s today. Decreased labetolol and holding Imdur for now. FeNa 1.6%. Possible component of ATN if relative hypotension at home. Discussed antiHTN regimen with renal today - pending course will engage formally if remains HTN with GAEL. I have examined the patient myself and personally reviewed all studies. In addition, I certify that I am a D-H credentialed attending provider with admitting privileges and that the patient meets or has met medical necessity to require an inpatient IPI level of care meeting a minimum of two midnights or is on the [facility] inpatient only procedure list (status C) due to: acute kidney injury necessitating close monitoring of fluid balance such as intravenous fluids and/or titration of medication to achieveoptimal effect and minimize the chance of immediate or severe side effects documented in this encounter H&P Notes Nina Joya MD - 10/02/2018 6:10 PM EDT Hospital Medicine - Admission History & Physical - Red Team, Pager [phone] Chief Complaint: Syncope History of Present Illness: Pretty Harmon is a 67 y.o. female with history of bilateral renal artery stenosis s/p bypass 09/07/18, HTN, HLD, AAA (3.7cm in 2018), remote hx of hepatitis B s/p treatment, hypothyroidism, combined systolic and diastolic HF (EF30%, most recently 54% without valve disease) whopresents for syncope. On September 14, she was discharged from [facility] following right renal artery bypass. She had 3 days of feeling tired but otherwise well, but then began having syncopal episodes since a week and a half ago. These epsids occur only in the morning only per the patient nad her . This AM, at 8am took BP, 110s/60s. Hours later and following a syncopal episode with new purple skin lasting one minute, shewas noted to have BPs 80s/50s with no change in HR (of note, she takes metoprolol). Associated symptoms include acute on chronically decreased appetite, urinary frequency (small volume) without dysuria, and prodrome of lightheadedness. Her has noticed she goes quite, begins staring straight ahead, and becomes unsteady on her feet, at which time he catches her; they both deny that she has everhit her head. She has chronically poor fluid intake, but has been maintaining her usual oral intake per her ; he states she has been putting out more than she has been putting in. On review ofdata recorded at home, she drank at most 350cc/day and urinated around 150cc/day. They deny bowel/bladder incontinence, shaking, or tongue biting during the episodes; she feels great after the episodes and denies post-ictal state. Aside from a blue toe on her right foot following her renal bypass,she denies other rashes or lesions. She denies abnormal bruising, bleeding, melena, or bright red blood per rectum. She endorses a weight loss of 30 pounds since March of last year due to being in and out of the hospital for pulmonary edema and surgery. 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 Over a phone call on 09/21, her nifedipine 30mg was changed to nightly for sBP>100 and her labetalol was reduced from 400mg BID to 300mg BID. She was sent home on a 24h blood pressure monitor to assess if her BP trends were related to her syncopal episodes. Results pending. In the ED, she was found to have orthostatic hypotension (157/76 lying -> 147/70 sitting -> 108/57 standing). HR remained in the 50s-60s on metoprolol. Labs were significant for WBC 7, hbg 11.6 (baseline 12-13), plt 287, Na 132, K 4.2, CO2 23, BUN/Cr 47/2.77, glucose 105, lactate 1.1. Cardiology was consulted for troponin 0.[address] depressions and T wave inversion in the anterolateral leads that was thought to represent demand ischemia and not ACS. A TTE was ordered. CXR showed hyperexpanded lungs without acute infectious process. Review of Systems: ?? GENERAL ?? HEENT ?? COR ?? PULM All negative X All negative ?? All negative X?? All negative ??X Weight loss ?? Headache Chest Pain ?? Non-productive cough ?? Weight gain ?? Vision change ?? Palpitations ?? Productive cough ?? Fevers ?? Sinus congestion ?? Orthopnea ?? Wheezing ?? Chills ?? Hoarseness ?? Leg edema ?? Hemoptysis ?? Night sweats ?? Epistaxis ?? Paroxysmal nocturnal dyspnea ?? Pleuritic pain ?? Fatigue ? X Syncope ?? SOB ? Claudication ?? ANN ? MSK ?? RENAL ?? ENDO ?? GI X All negative All negative All negative X All negative ?? Arthralgias X Frequency ?? Heat intolerance ?? Blood in stool ?? Myalgias ?? Urgency X?? Cold intolerance ?? Dysphagia ?? Weakness ?? Hematuria ?? Polydipsia ?? Odynophagia ?? Stiffness ?? Flank pain ?? Polyphagia ?? Abdominal discomfort ? Dysuria ?? Cushingoid ?? Constipation ? Foamy urine ? Diarrhea ? Discharge ? Nausea/Vomiting ? LYMPH ?? SKIN ?? NEURO ?? PSYCH X All negative X All negative All negative X All negative ?? Swollen nodes ?? Rash ?? Seizures ?? Depressed affect ?? Tender nodes ?? Ulcers ?? Tremors ?? Occupational stress ?? Diffuse nodes ?? Bruising ?? Spasticity ?? Anxiety ?? Local nodes ?? Tanned skin ?? Focal weakness ?? Insomnia ?? Night sweats ?? Telangiectasias ?? Diplopia ? Paresthesias ? X?? Lightheadedness ? Past Medical/Surgical History: Past Medical History: Diagnosis Date ??? AAA (abdominal aortic aneurysm) [id number] angiogram; 3.2 cm infrarenal ??? Constipation ??? Dyslipidemia ??? Hypertension ??? Insomnia ??? Peripheral vascular disease ??? Renal artery stenosis R; per 2009 angiogram Medications: No current facility-administered medications on file prior to encounter. Current Outpatient Medications on File Prior to Encounter Medication Sig Dispense Refill ??? NIFEdipine (PROCARDIA XL) 30 mg Tablet Extended Rel 24 hr Take 30 mg by mouth daily. Take at night if bp >100 ??? labetalol (NORMODYNE) 200 mg Tablet Take 1.5 tablets by mouth 2 times daily. 60 tablet 3 ??? acetaminophen (TYLENOL) 500 mg [...] unit Tablet Take 1,000 Units by mouth. Allergies: Allergies Allergen Reactions ??? 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 Social History Socioeconomic History ??? Marital status: [...] file Gets together: Not on file Attends islam service: Not on file Active member of [...] [employer] of 50 years. 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 Hoping to retire 11/2018 and travel throughout [facility] and [place] with [employer]. No history of heavy etoh use 2 children healthy Family History: Family History Problem Relation Age of Onset ??? Hypertension Mother ??? Cervical Cancer Mother ??? Chronic Obstructive Pulmonary Disease Father ??? Hypertension Sister Father: emphysema, Mother: ?HTN, Sister: HTN Brother: in action ([employer]) Children: Healthy x2 Physical Exam: Most Recent Range (last 24) Temperature Temp: 36.4 ??C (97.5 ??F) Temp: [36.4 ??C (97.5 ??F)] Heart Rate Heart Rate: 57 Heart Rate: [54-67] Blood Pressure BP: 173/70 BP: (108-173)/(57-76) Respiratory Rate Resp: 16 Resp: [16-20] SpO2 SpO2: 98 % SpO2: [98 %] Gen: Well-appearing frail elderly woman resting comfortably in bed, AOx3, NAD Eyes: PERRLA, EOMI, anicteric ENT: Moist mucous membranes, -erythema/exudate, neck supple CV: RRR, S1 S2 normal, without murmurs, rubs, or gallops Respiratory: Clear to auscultation bilaterally, without rales or rhonchi, good inspiratory effort GI: Soft, tender along transabdominal incision (healing well with alex in place and without erythema or purulent drainage), slightly distended, no rebound tenderness or guarding, hypoactive bowel sounds, no hepatosplenomegaly Skin: Normal temperature and turgor, cyanosis and tenderness at dorsal fourth toe, no other lesions,rashes, or petechiae Neuro: CN II-XII grossly intact, normal strength, normal sensation, without focal deficits Musculoskeletal: No joint swelling or pain Ext: No peripheral edema, 2+ peripheral pulses Laboratory: Recent Results (from the past 24 hour(s)) Basic Metabolic Panel (non-fasting) Result Value Ref Range Glucose Lvl 105 65 - 199 mg/dL BUN 47 (H) 8 - 18 mg/dL Creatinine 2.77 (H) 0.70 - 1.20 mg/dL Sodium 132 (L) 135 - 145 mmol/L Potassium 4.2 3.5 - 5.0 mmol/L Chloride 94 (L) 98 - 107 mmol/L CO2 23 22 - 31 mmol/L Anion Gap 15 5 - 15 mmol/L Calcium 9.7 8.5 - 10.5 mg/dL eGFR 17 (L) >=60 mL/min/1.73 m?? eGFR 19 (L) >=60 mL/min/1.73 m?? Troponin Result Value Ref Range Troponin-T 0.02 (H) 0.00 - 0.00 ng/mL Hemogram Result Value Ref Range WBC 7.0 4.0 - 9.5 x10(3)/mcL RBC 3.84 (L) 4.00 - 5.21 x10(6)/mcL Hemoglobin 11.6 (L) 11.7 - 15.5 gm/dL Hematocrit 34.4 (L) 35.7 - 45.8 % MCV 89.6 82.6 - 94.4 fL MCH 30.2 27.1 - 32.0 pg MCHC 33.7 31.7 - 35.0 gm/dL Platelets 287 145 - 357 x10(3)/mcL RDWSD 48.5 (H) 37.0 - 46.0 fL RDWCV 14.7 (H) 11.5 - 14.1 % MPV 10.4 7.6 - 12.9 fL nRBC % Auto 0.0 % nRBC Abs Auto 0.000 0.000 - 0.000 x10(3)/mcL Differential, Automated Result Value Ref Range Neutrophils % 48.7 % Neutr Abs (ANC) 3.40 1.70 - 6.10 x10(3)/mcL Lymphocytes % 21.2 % Lymphocytes Abs 1.5 0.9 - 3.2 x10(3)/mcL Monocytes % 13.4 % Monocyte Abs 0.9 0.3 - 0.9 x10(3)/mcL Eosinophils % 13.7 % Eosinophils Abs 1.0 (H) 0.0 - 0.4 x10(3)/mcL Basophils % 1.4 % Basophils Abs 0.1 0.0 - 0.1 x10(3)/mcL Immature Gran % 1.60 % Blanca Gran Abs 0.11 (H) 0.00 - 0.04 x10(3)/mcL Blue Tube HOLD Result Value Ref Range Blue Hold Sample in lab. Gold Tube HOLD Result Value Ref Range Gold Hold Sample in lab. BLOOD GAS 2 VENOUS Result Value Ref Range pH Ward 7.37 7.32 - 7.42 pCO2 Ward 43 41 - 51 mmHg pO2 Ward 21 (L) 25 - 40 mmHg HCO3 Ward 24.2 mmol/L BE Ward -1.1 mmol/L Hgb Blood Gas 12.0 11.7 - 15.5 gm/dL O2HB Ward 38.7 % COHB Ward 0.4 % METHB Ward 0.7 <=1.5 % Na Whole Blood 130 (L) 135 - 145 mmol/L K Whole Blood 4.0 3.5 - 5.0 mmol/L ICa Whole Blood 1.21 1.15 - 1.33 mmol/L CL Whole Blood 93 (L) 98 - 107 mmol/L Gluc Whole Bld 79 65 - 199 mg/dL Lactate WB 1.1 0.5 - 2.2 mmol/L BGas Source Venous Microbiology: Microbiology Results (Last 30 days) No results found for the last 720 hours. Imaging and Diagnostics: XR Chest PA & Lateral (Generic) Final Result Hyperexpanded lungs but no acute infiltrate or congestive changes. The previous left lower lobe pneumonia has resolved as has the right lower lobe infiltrate and effusion since the prior study Thank you for letting us participate in the care of this patient. For questions regarding this report, please contact the number below. Assessment/Plan: Pretty Harmon is a 67 y.o. female with history of renal artery stenosis s/p right arterial bypass, PAD, HTN, and HLD who presents with recurrent syncope and orthostatic hypotension. Suspect orthostatic hypotension secondary to antihypertensive regimen in conjunction with dehydration. Will drastically scale back home regimen to include only nifedipine, particularly in the setting of labetalol's beta blockade in conjunction with metoprolol, further driving down her compensatory mechanisms in the settingof dehydration and hypotension. Plan to restart home meds at low-doses as her BPs tolerate. Patient needs IV hydration given her chronically low oral intake, however will need to run fluids slowly in the setting of systolic and chronic dysfunction and repeat TTE. Suspect acute on chronic kidney disease and mildly elevated troponin secondary to demand ischemia (type II NSTEMI) are both due to hypotension and poor organ perfusion; will trend BMP and troponin. Will evaluate for alternate reasons for syncope, including infection, arrhythmia, heart failure/valvular dysfunction, undertreated hypothyroidism all of which seem less likely. No neurologic deficits or symptoms to suggest this a primary neurologic process (stroke, seizure). # Syncope # Orthostatic hypotension c/b acute on chronic kidney disease (baseline Cr ~1.6) and demand ischemia # Hx of HFrEF # H/o hypothyroidism - UA with reflex culture - Blood cultures x2 - Trend troponin to peak - s/p 1L LR in ED - 500cc LR bolus over 5 hours (100cc/hr) - Repeat orthostatic vital signs in the AM following rehydration - TTE - Telemetry - Reduce home nifedipine to 20mg nightly - Hold home isosorbide mononitrate, labetalol - Continue home levothyroxine 25mcg qd, recheck TSH # Blue toe, likely embolic - Continue home ASA 81mg qd # Chronic Medical Conditions: - Continue home gabapentin at 200mg TID # Routine Diet: Low Sodium diet 2 GM NA DVT prophylaxis: Heparin SQ q8h Fluids: LR 500cc over 5h Access: PIV Dispo: Admit to , Red Team #[id number] Code: History Nina Joya MD PGY-1, Internal Medicine 10/02/2018 [facility] Team Pager - [phone] Associated attestation - Hernandez Oglesby MD - 10/02/2018 11:32 PM EDT Attending Staff Admission Documentation I have examined the patient myself on 10/02/2018 and reviewed all labs and studies personally. Please see Dr. Joya's documentation for details of the patient history of presentation and data. 67 y/o with h/o HTN, combined systolic and diastolic CHF (more recent EF 54% but had been 30% in past), bilateral renal artery stenosis with recent admission with flash pulmonary edema now s/p right iliac right renal bypass on 09/07 now presenting with syncope and GAEL. Syncope likely orthostatic/from low BP in setting of improved BP control s/p bypass. Noting some lower BP at home and orthostatic at outpatient appt on 09/28. Lower concern for arrhythmia. Will check UA, treated with IVF and adjust BP meds with monitoring of BP. She follows with nephrology for BP management. I have discussed, reviewed and agree with the documented history with ROS, physical findings, labs/studies, assessment and plan of care. documented in this encounter ED Notes Mariajose Martínez RN - 10/02/2018 7:00 PM EDT Admitting MD in with patient Promise Cano RN - 10/02/2018 6:35 PM EDT Report to Ashley BRAVO Promise Cano RN - 10/02/2018 6:11 PM EDT Report called to floor, unable to take at this time, awaiting call back Promise Cano RN - 10/02/2018 5:49 PM EDT New diet ordered, pt given menu and turkey sandwhich awaiting dispo Lexus Guardado MD - 10/02/2018 5:02 PM EDT ATTESTATION NOTE I saw this patient with resident physician Kenji. Please see their note for full details. HPI notable for 67 YOF with history of bilateral renal artery stenosis status post bypass on September 07,hypertension, hyperlipidemia, AAA, heart failure, hypothyroidism who presents to the emergency department with syncopal episodes that occurred daily since her discharge from the hospital. She states that it usually occurs in the morning. She denies any prodromal symptoms but it usually occurs while standing and her who is usually right next to her lowers her to the ground. The loss of consciousness usually occurs for about 10 seconds and there is no postictal state. She denies any chest pain, palpitations or dizziness. She did have a systolic blood pressure in the 80s at the time of this last syncopal event. She has seen her primary care doctor for this as well and they recommend that if it continues to happen that she be seen in the emergency department. Of note she is taking labetalol and nifedipine for high blood pressure as well as Imdur. She has hadmultiple medications stopped at the time of discharge including amlodipine carvedilol and Lasix. [facility] Past Medical History: Diagnosis Date ??? AAA (abdominal aortic aneurysm) [id number] angiogram; 3.2 cm infrarenal ??? Constipation ??? Dyslipidemia ??? Hypertension ??? Insomnia ??? Peripheral vascular disease ??? Renal artery stenosis R; per 2009 angiogram MEDS Current Facility-Administered Medications Medication Dose Route Frequency Provider Last Rate Last Dose ??? lactated Ringers 500 mL IV bolus Intravenous Once Gavino Phillip MD 1,000 mL/hr at 10/02/18 1633 Current Outpatient Medications Medication Sig Dispense Refill ??? NIFEdipine (PROCARDIA XL) 30 mg Tablet Extended Rel 24 hr Take 30 mg by mouth daily. Take at night if bp >100 ??? labetalol (NORMODYNE) 200 mg Tablet Take 1.5 tablets by mouth 2 times daily. 60 tablet 3 ??? acetaminophen (TYLENOL) 500 mg [...] unit Tablet Take 1,000 Units by mouth. BP 173/70 Pulse 57 Temp 36.4 ??C (97.5 ??F) (Oral) Resp 16 SpO2 98% Exam notable for I have reviewed the vital signs and nursing notes. General: frailappearing, NAD Heent: NCAT, mmm Neck: no meningismus CV: RRR, no m/r/g, Pulm: CTAB, no w/r/r Abd: Soft, non tender, non distended Skin: warm and dry Neuro: GCS 15, HERNANDEZ x 4 Psych: normal affect, normal eye contact Please see resident physician exam for further details ED Course: Records reviewed by me:yes Labs reviewed by me - significant for: troponin of 0.02, creatinine 2.77, Na 132, Imaging reviewed by me and shows: CXR neg EKG reviewed and interpreted by me and shows: initial EKG with ST scooped depressions laterally. 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 She appeared to be dehydrated and was given IVF ED Vitals: Patient Vitals for the past 8 hrs: BP Temp Temp src Pulse Resp SpO2 10/02/18 1530 173/70 -- -- 57 16 -- 10/02/18 1523 108/57 -- -- 65 -- -- 10/02/18 1521 147/70 -- -- 54 -- -- 10/02/18 1517 157/76 -- -- 61 -- -- 10/02/18 1418 120/57 36.4 ??C (97.5 ??F) Oral 67 20 98 % Medical Decision Making Pretty Harmon is a 67 y.o. female who presents to the ED with syncope daily since discharge from the hospital in August. I suspect she is dehydrated causing orthostasis. She also has worsening kidney function likely due to inability to keep up with PO needs. Her troponin is positive which could be due to worsening creatinine clearance, but given anatomical dynamica EKG changes, cardiology was called as well. Pt was signed out to Dr. Ballesteros pending cardiology recommendations as well as admission to medicine. Diagnosis: syncope Disposition: Admission pending Condition: fair MD Geo Shearer Jessica L, MD 10/02/18 1707 Lexus Guardado MD 10/02/18 1710 Promise Cano RN - 10/02/2018 3:10 PM EDT at bedside, awaiting dispo Leah Craft RN - 10/02/2018 3:01 PM EDT Patient has large incision across the abdomen that starts URQ and goes to her LLQ. Creola intact covered with steri strips. CDI no sign of infection. Gavino Phillip MD - 10/02/2018 2:54 PM EDT Chief Complaint Patient presents with ??? Loss of Consciousness HPI 67 yo F with a PMH of bilatearl renal artery stenosis s/p bypass 09/07/18, HTN, HLD, AAA (3.7cm in 2018), hypothyroidism, combined systolic and diastolic HF (EF30%, most recently 54% without valve disease) who presents with daily syncopal episodes since discharge. Patient was hospitalized 08/29-09/14 for h ypertensive urgency with above procedure performed 09/07/18. Since discharge starting 2-3 days after she got home, patient has had near-daily episodes of syncope occurring generally once per day up until today when she had two episodes. Episodes typically occur in the morning while standing up (no episodes while sitting or lying down).Patient develops a prodrome of funny feeling in the legs from knees down with dizziness followed soon after by a syncopal episode. Has had no injuries as her has caught her most every time. Denies precedent chest pain, SOB, palpitations. Patient typically is out for about 10 seconds and thencomes to without a post-ictal state. Has no history of syncope prior to this surgery. Denies fevers, irritative voiding symptoms, anorexia, N/V/D, blood in the stool, melena, chest pain,SOB, ANN, leg swelling. Weighs herself daily and was 86.4lb this morning; weight has been relativelystable with discharge weight at 89lb. 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 brought her in today given she had two episodes today which is new. First episode was this morning she was standing in the kitchen and got prodromal symptoms and she passed out, caught by her . Second episode was around 11AM; she got up from sitting and walked toward the bathroom about twenty feet and then passed out, caught by . Takes her morning medications around 7AM (labetalol 300mg BID; nifedipine 30mg prn for HTN--has taken this almost every night she has been home--imdur 30mg). At the time of discharge, she had multiple medications stopped including amlodipine, carvedilol and lasix. Patient also notes R 4th toe episodic discoloration and pain occurring at night usually multiple episodes which has come on since the surgery. Allergies Allergen Reactions ??? Lisinopril Rise in creatinine Review of Systems Constitutional: Negative for appetite change and fever. HENT: Negative for rhinorrhea and sore throat. Eyes: Negative for visual disturbance. Respiratory: Negative for cough and shortness of breath. Cardiovascular: Negative for chest pain. Gastrointestinal: Negative for abdominal pain, nausea and vomiting. Genitourinary: Negative for dysuria and frequency. Skin: Negative for rash. Neurological: Positive for syncope and light-headedness. Negative for headaches. Psychiatric/Behavioral: Negative for confusion. 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 DERM: no rash or other lesion PSYCH: appropriate behavior and speech Procedures MDM and ED Course: Patient is a 67 F with recent renal artery bypass presenting with new-onset near-daily episodes of syncope starting soon after discharge from the hospital. Etiology of her symptoms is unclear, however I suspect the patient's antihypertensives may be contributing. I suspect that patient's HTN has improved with her bypass and she is now getting too many antihypertensives leading to episodic hypotensionand syncope. She was found to have an GAEL today as well which could further contribute if renally cleared medications are building up. Other etiologies are possible including arrhythmia, valvular disease (could consider echo while in-house), CHF exacerbation (less likely as weight is stable to reducedfrom discharge and she has no significant volume-overload on exam). Labs today show low sodium, GAEL,mildly elevated troponin, essentially normal VBG and non-ischemic ECG. ECG does appear changed from prior. Cardiology was consulted given change in ECG with positive troponin, however they do not think this represents ACS. They recommend no further work-up other than serial biomarkers. Patient admitted to medicine with vascular surgery following. Gavino Phillip MD Resident 10/03/18 0055 Associated attestation - Lexus Guardado MD - 10/06/2018 9:47 PM EDT ED ATTENDING ATTESTATION NOTE The patient was seen in conjunction with Dr. Phillip the resident physician. I have independently performed [...] resident note above unless noted otherwise below. Please see my separately filed attestation note. documented in this encounter Miscellaneous Notes Plan of Care - Eneida Ag RN - 10/07/2018 12:15 AM EDT Problem: Patient Care Overview Goal: Plan of Care Review Outcome: Ongoing (Interventions Implemented as Appropriate) 10/03/18 1621 10/06/18 1950 Plan of Care Review Progress progress toward functional goals as expected -- Coping/Psychosocial Plan Of Care Reviewed With -- patient OUTCOME EVALUATION NOTE: OUTCOME SUMMARY: Patient AOx4, neurologically intact. VSS, HR NSR, SBPs remain within goal 140- 180, on RA. Sleeping through the night. MIVF gtt continues to run, patient ambulates to bathroom independently to void, anddenies pain. Will complete orthostatic BPs and get daily weight with AM labs at 6am per patient request. Orthostatic pressures: Lyin/61 Sittin/67 Standin/63 Will continue monitoring. PLAN MOVING FORWARD: bp control Discharge planning INDIVIDUALIZED FALL PREVENTION INTERVENTIONS: Patient-specific fall risk factors per assessment: [current deficits]: IND Assistance [level of assistance required for transfers and ambulation]: IND Supervision [direct monitoring required during toileting and ADLs]: IND Surveillance [continuous indirect monitoring]: Call carmona within reach, purposeful rounding, room near nurses station Patient-specific fall prevention interventions for sensory deficits provided, if applicable: [X] No CPG GOAL OUTCOME EVALUATION: Making progress. Goal: Individualization & Mutuality Outcome: Ongoing (Interventions Implemented as Appropriate) 10/03/18 1328 Mutuality/Individual Preferences What Anxieties, Fears or Concerns Do You Have About Your Health or Care? No What Questions Do You Have About Your Health or Care? No What Information Would Help Us Give You More Personalized Care? No Goal: Fall Prevention-Safe Patient Handling Outcome: Ongoing (Interventions Implemented as Appropriate) 10/04/18 0815 10/06/18 0800 10/06/18 1600 Daily Care Interventions Self-Care Promotion independence encouraged -- -- Lamb Fall Risk History of Falling -- -- -- Secondary Diagnosis -- -- -- Ambulatory Aids -- -- -- Intravenous Therapy/Heparin/Saline Lock -- -- -- Gait/Transferring -- -- -- Mental Status -- -- -- Score -- -- -- OTHER Lamb Fall Risk -- -- -- Restraint Interventions Safety Promotion/Fall Prevention -- -- -- Positioning Body Position -- -- -- Activity Activity Type -- -- -- Activity Assistance Provided -- -- assistance, stand-by Assistive Device Utilized -- none -- 10/06/18 1950 10/06/18 2353 Daily Care Interventions Self-Care Promotion -- -- Lamb Fall Risk History of Falling 25 -- Secondary Diagnosis 15 -- Ambulatory Aids 0 -- Intravenous Therapy/Heparin/Saline Lock 20 -- Gait/Transferring 0 -- Mental Status 0 -- Score 60 -- OTHER Lamb Fall Risk High -- Restraint Interventions Safety Promotion/Fall Prevention -- safety round/check completed;nonskid shoes/slippers when out of bed;fall prevention program maintained;activity supervised Positioning Body Position -- independent Activity Activity Type -- activity adjusted per tolerance Activity Assistance Provided -- -- Assistive Device Utilized -- -- Goal: Infection Control Outcome: Ongoing (Interventions Implemented as Appropriate) 10/06/18 1950 10/06/18 1811 Safety Interventions Isolation Precautions -- standard precautions maintained Infection Prevention -- single patient room provided;rest/sleep promoted;environmental surveillance performed Coping Strategies Supportive Measures active listening utilized;problem solving facilitated;verbalization of feelings encouraged -- Goal: Discharge Needs Assessment Outcome: Ongoing (Interventions Implemented as Appropriate) 10/03/18 1621 Discharge Needs Assessment Concerns To Be Addressed no discharge needs identified Readmission Within The Last 30 Days no previous admission in last 30 days Provider Choice List(s) Given no Equipment Needed After Discharge none Discharge Facility/Level Of Care Needs other (see comments) (Home) Current Discharge Risk chronically ill Discharge Disposition home or self-care;still a patient Current Health Outpatient/Agency/Support Group Needs homecare agency (specify level of care) Anticipated Changes Related to Illness none Activity/Self Care Review of Systems Equipment Currently Used at Home none Living Environment Transportation Available family or friend will provide;car Goal: Interdisciplinary Rounds/Family Conf Outcome: Ongoing (Interventions Implemented as Appropriate) 10/03/18 1621 Interdisciplinary Rounds/Family Conf Participants family;nursing;patient;physician Plan of Care - Corwin Hendrickson RN - 10/06/2018 6:31 PM EDT Problem: Patient Care Overview Goal: Plan of Care Review Outcome: Ongoing (Interventions Implemented as Appropriate) 10/03/18 1621 10/06/18 1000 Plan of Care Review Progress progress toward functional goals as expected -- Coping/Psychosocial Plan Of Care Reviewed With -- patient;spouse OUTCOME EVALUATION NOTE: OUTCOME SUMMARY: Pt alert and orientedx4. Ambulating well on her own. SBP under 180 until around 1800 when it [id number]. Team paged. Vitals otherwise have been stable on room air. Pt does not report any pain/numbnessor tingling. Orthostatic BP's completed and are as follows: Lyin/76 Sittin/79 Standin/77 Duplex study performed at bedside. Pulses palpable throughout. Lungs clear on RA. 4th toe on R foot with small bruise. Old abdominal incision C/D/I. Pt currently resting comfortably in bed. Will continue to monitor. PLAN MOVING FORWARD: Monitor BP's, Transfer to floor INDIVIDUALIZED FALL PREVENTION INTERVENTIONS: Patient-specific fall risk factors per assessment: [current deficits]: Weakness Assistance [level of assistance required for transfers and ambulation]: SBA Supervision [direct monitoring required during toileting and ADLs]: SBA Surveillance [continuous indirect monitoring]: Jannet monitor, room near unit station Patient-specific fall prevention interventions for sensory deficits provided, if applicable: [X] Yes CPG GOAL OUTCOME EVALUATION: Plan of Care - CarlosA Pérez RN - 10/05/2018 6:53 PM EDT Problem: Patient Care Overview Goal: Plan of Care Review Outcome: Ongoing (Interventions Implemented as Appropriate) OUTCOME EVALUATION NOTE: OUTCOME SUMMARY: A/O x4. SBA. Positive orthostatic BP's, pt. Denies dizziness or lightheadedness. Tolerating ambulating to the bathroom. Activity encouraged. Up in chair intermittently throughout shift, ambulated the halls. BP well controlled until late afternoon. MD placed new medication orders. Imdur given x2, effects pending. PLAN MOVING FORWARD: Monitor BP and try to control with oral medications. INDIVIDUALIZED FALL PREVENTION INTERVENTIONS: Patient-specific fall risk factors per assessment: [current deficits]: orthostatic bp, wires. Assistance [level of assistance required for transfers and ambulation]: SBA Supervision [direct monitoring required during toileting and ADLs]: SBA Surveillance [continuous indirect monitoring]: telemetry, hourly rounding, camera Patient-specific fall prevention interventions for sensory deficits provided, if applicable: [X] Yesglasses CPG GOAL OUTCOME EVALUATION: Initial Assessments - Shannen Isaacs RN - 10/05/2018 8:33 AM EDT Office of Care Management Initial Assessment Shannen Isaacs RN reviewed record and discussed patient with Care Team. Source of Information: pt Introduced self/reviewed role; services accepted. Reason y/o with h/o HTN, combined systolic and diastolic CHF (more recent EF 54% but had been 30% inpast), bilateral renal artery stenosis with recent admission with flash pulmonary edema now s/p right iliac right renal bypass on 09/07 now presenting with syncope and GAEL. Syncope likely orthostatic/from low BP in setting of improved BP control s/p bypass. Noting some lower BP at home and orthostatic at outpatient appt on 09/28. Lower concern for arrhythmia. Will check UA, treated with IVF and adjust BP meds with monitoring of BP. She follows with nephrology for BP management. REASON for Hospitalization: Reason for Admission as Stated by Patient: Hernandez Webb MD at 10/02/2018 11:32 PM Past Medical History: Diagnosis Date ??? AAA (abdominal aortic aneurysm) [id number] angiogram; 3.2 cm infrarenal ??? Constipation ??? Dyslipidemia ??? Hypertension ??? Insomnia ??? Peripheral vascular disease ??? Renal artery stenosis R; per 2009 angiogram Hospitalizations Within the Past 30 Days: see H&P Anticipated Length Of Stay (If known): Expected Length of Hospitalization: A couple of days Current Decision-Making Capacity: a,ox3 Advance Care Planning: has written on file with spouse as MILADYS Harmon [phone] Current Coping/Education/Information Needs: CM explained VNA/SNF and Outpt Services with insurance payment Current Functional Ability: 100%ADL ind/No DME used Functional Status Prior to Admission: 100%ADLini/No DME used/ drove self Home Environment: lives with spouse e in 2 story house with 1st floor has bed/bath/kitchen Social & Family Supports/Community Resources: , Behavioral Health History: denied Substance Use/Abuse: denied Other Pertinent/Service Specific Information: na Health/Prescription Coverage: Primary Insurance: MEDICARE Secondary Insurance: [employer] [place] Prescription Coverage: yes Preferred Pharmacy: [email or web address] Primary Care Provider: Sanjuanita Lee MD [phone] Patient/Caregiver Goals of Treatment: home with VNA Potential Needs for Transition of Care: Rehab/SNF: declined Home Health: [facility] orders pended DME: na Dialysis: na Community Resources: na Transportation: family Anticipated Barriers to Discharge/Special Considerations: na Assessment: 67yo w/ acute onset syncopy GAEL,a,ox3 .VNA wanted Plan: A member of the Care Management team will continue to monitor progress, follow for continuity of care and assist with transition of care planning. Shannen Isaacs, RN Pager: [phone] Plan of Care - Sully Jarquin RN - 10/04/2018 7:45 PM EDT Problem: Patient Care Overview Goal: Plan of Care Review Outcome: Ongoing (Interventions Implemented as Appropriate) 10/04/181938 Coping/Psychosocial Plan Of Care Reviewed With patient OUTCOME EVALUATION NOTE: OUTCOME SUMMARY: Pt on telemetry, hx of afib, syncopal episodes Hydralazine given at 1025 for sys BP >180 (per mar/see chart), with positive affect NS bolus at 125ml/hr given Family and visited which helped patient cope with hospital stay Pts BP in afternoon remained sys BP >200, hydralazine and labetalol given per MD MD and team came down to assess pt, PO labetalol given Will continue to monitor PLAN MOVING FORWARD: Will continue to monitor. Awaiting transfer to [facility] INDIVIDUALIZED FALL PREVENTION INTERVENTIONS: Patient-specific fall risk factors per assessment: [current deficits]: IV, BP, fall hx Assistance [level of assistance required for transfers and ambulation]: Stand-by Supervision [direct monitoring required during toileting and ADLs]: Eyes on Surveillance [continuous indirect monitoring]: Call carmona in reach, rings appropriately, masimo, telemetry Patient-specific fall prevention interventions for sensory deficits provided, if applicable: n/a CPG GOAL OUTCOME EVALUATION: Consult Note - Champ Valentine MBBS - 10/04/2018 4:40 PM EDT HYPERTENSION/ NEPHROLOGY CONSULT PATIENT: Pretty Harmon : 1950 REASON FOR CONSULTATION: Management of BP and GAEL on CKD Requested by Medicine service HPI: 67 y.o. female with PMHx significant for for CKD stage 3GB/4 with baseline creatinine of 1.9-2 mg/dl , now admitted for syncopal event every morning and fluctuation in BP . She was found to have lyingBP of 157/ 75 mmhg, sitting 147/70 and standing 108/57 mmhg on the day of admission .On the day of admission her serum creatinine was 2.77 Which was 2.3 on 09/27/18 mg/dl now improved to 2.32 mg/dl aftervolume expansion with normal saline . she has HFpEF (EF 54% on 08/2018 TTE), bilateral renal artery stenosis (>60% occlusion bilaterally in 01/2018, progression of R stenosis to occlusion and persistent L stenosis on most recent duplex in 08/2018), 3.7 cm AAA, acute HBV, HTN, HLD, former tobacco use (45 years up to 1ppd at max, quit 10 years ago), who was admitted in [facility] last month for hypertensive urgency and flash pulmonary edema requiring BIPAP and ICU admission. She had renal artery angiogram on 09/01/18 which showed widely patent left main renal artery (very mild stenosis at origin but thereafter widely patent) . Designated rightrenal angiogram showed occluded right renal artery at origin with reconstitution ~1 cm from origin at branch point, several collateral vessels in area. She had GAEL during the admission with highest creatinine of 2.89 mg/dl . She was treated initially with intravenous diuretics and nicardipine drip. She had Right external iliac to right renal artery bypass with reversed right greater saphenous vein on09/07/18 . She was discharged home on 09/14/18 on Labetalol 400 mg BID and Nifedipine XL 30 mg BID when serum creatinine improved to 1.64 mg/dl. ?? Since discharge from hospital they have been diligently monitoring and recording home BP and urine output. BP has been very fluctuating through out the day lowest being 60-88 mmhg /35-56 mmhg and highest BP recording was 178/94 mmhg . She reportedly passed out 6 times since discharge for [id number] seconds each time and regained consciousness after lying in floor. She passed out on Thursday and Thursday night prompting her to go in ED. She admission no syncopal events . She denied any problems in urination, shortness of breath, nausea, vomiting , diarrhea and abdominal pain. Past Medical History: Diagnosis Date ??? AAA (abdominal aortic aneurysm) [id number] angiogram; 3.2 cm infrarenal ??? Constipation ??? Dyslipidemia ??? Hypertension ??? Insomnia ??? Peripheral vascular disease ??? Renal artery stenosis R; per 2010 angiogram Past Surgical History: Procedure Laterality Date ??? HYSTERECTOMY ? ? PRO CATHETER 1ST ORDER W/WO ART PUNCT/FLUORO/S&I BILATERAL Bilateral 09/01/[address] (FIRST-ORDER), MAIN RENAL ART & ANY ACC, W/S&I; ANDREY (WRVU 6.99) performedby Regan Chen MD at [facility] MAIN OR ??? PRO UPPER GI ENDOSCOPY, DIAGNOSTIC 01/20/2014 EGD, UPPER GI ENDOSCOPY performed by Corby Cano MD at [facility] ENDOSCOPY ??? PRO UPPER GI ENDOSCOPY, DIAGNOSTIC N/A 07/28/2017 EGD, UPPER GI ENDOSCOPY performed by Snow Liao MD at [facility] ENDOSCOPY ??? PRO VEIN BYPASS GRAFT, AORTOILIOFEMORAL N/A 09/07/2018 @BYPASS GRAFT, AORTOILIAC W\ VEIN CONDUIT (WRVU 41.88) performed by Isac Moody MD at [facility] MAIN OR Family History Problem Relation Age of Onset ??? Hypertension Mother ??? Cervical Cancer Mother ??? Chronic Obstructive Pulmonary Disease Father ??? Hypertension Sister Social History- Lives with , does not smoke and drink alcohol Outpatient medications: No current facility-administered medications on file prior to encounter. Current Outpatient Medications on File Prior to Encounter Medication Sig Dispense Refill ??? NIFEdipine (PROCARDIA XL) 30 mg Tablet Extended Rel 24 hr Take 30 mg by mouth nightly. Take at night if bp >100 ??? labetalol (NORMODYNE) 200 mg Tablet Take 1.5 tablets by mouth 2 times daily. 60 tablet 3 ??? acetaminophen (TYLENOL) 500 mg Tablet Take 1 tablet by mouth every 6 hours. 30 tablet 1 ??? isosorbide mononitrate (IMDUR) 30 mg Tablet Sustained Release 24 hr Take 1 tablet by mouth daily. 30 tablet 12 ??? gabapentin (NEURONTIN) 800 mg Tablet Take 1 tablet by mouth nightly. (Patient taking differently: Take 200 mg by mouth 3 times daily.) 30 tablet 3 ??? levothyroxine (SYNTHROID) 25 mcg Tablet Take 25 mcg by mouth daily. ??? aspirin 81 mg Tablet, Delayed Release (E.C.) Take 81 mg by mouth daily. MEDICATIONS: ??? bolus IV fluid Intravenous Once ??? NIFEdipine 60 mg Oral Nightly ??? labetalol 100 mg Oral BID ??? gabapentin 200 mg Oral TID ??? levothyroxine 25 mcg Oral Daily ??? sodium chloride 0.9 % 5 mL Intravenous BID ??? heparin (Porcine) 5,000 Units Subcutaneous Q8H WILFRED ??? aspirin 81 mg Oral Daily Allergies Allergen Reactions ??? Lisinopril Rise in [...] Temperature Temp: 36.8 ??C (98.2 ??F) Temp: [36.8 ??C (98.2 ??F)-37.2 ??C (99 ??F)] Heart Rate Heart Rate: (!) 123 Heart Rate: [70-123] Blood Pressure BP: (!) 207/90 BP: (129-220)/(69-100) Respiratory Rate Resp: 16 Resp: [14-18] SpO2 SpO2: 98 % SpO2: [98 %-99 %] Appearance - Alert, Comfortable. Skin - No exanthem. HEENT - Sclera white. Dry mucous membrane. Chest: Lungs clear to ausculatation w/o wheezes/ rhonchi/ crackles. Heart - S1 and S2 clear w/o murmur, gallop, or rub. JVP not elevated. Abd - Soft. + BS. No bruit. Non tender. Ext - Warm. No cyanosis. No dependent edema. Neuro - No asterixis. STUDIES: Labs: CBC: Recent Labs 10/04/1844310/03/18 03210/02/18 1443 WBC 7.8 8.8 7.0 HGB 11.9 12.0 11.6* PLATELET 309 299 287 Chemistry: Recent Labs 10/04/1844310/03/18 03210/02/18 1443 NA 137 136 132* K 3.7 4.0 4.2 CL 102 99 94* CO2 23 22 23 BUN 32* 42* 47* CREATININE 2.32* 2.48* 2.77* GLUCOSE 99 92 105 Recent Labs 10/04/18 0444 10/03/18 0329 10/02/18 1443 09/14/18 0516 09/03/18 0035 09/02/18 0329 08/31/18 0015 CALCIUM 9.3 9.2 9.7 8.8 < > 8.2* 8.5 < > 7.9* MAGNESIUM 0.85 0.85 -- 0.63* < > 0.95 0.97 < > 0.75 PHOS -- -- -- -- -- 4.4 6.2* -- 3.5 < > = values in this interval not displayed. LFT's: Recent Labs 10/03/1832806/14/18 1022 BILITOT <0.2* 0.4 BILIDIR 0.1 -- ALBUMIN 3.4 3.9 ALKPHOS 72 57 ALT 13 11 AST 19 19 IMPRESSION/ RECOMMENDATIONS: She is 67 y.o. female with PMHx significant for CKD stage 3GB/4 with baseline creatinine of 1.9-2 mg/dl who recently had episodes of GAEL after right renal artery bypass surgery for right renal artery now admitted for syncopal event every morning and fluctuation in BP . Sherecently had 24 hours ambulatory BP monitoring which showed average systolic BP 158mmhg and diastolic 76 mmhg. On admission her serum creatinine was 2.77mg shannon improved to 2.32 after hydration. Her blood pressure is fluctuating in house ranging 129-220/76-98 mmhg. She does not have syncopal event after admission but she is orthostatics without symptoms. # Hemodynamics- significant fluctuations in BP in house with positive orthostasis. Recent 24 hours ambulatory monitoring showed average systolic 158 mmhg and dialtolic 76 mmhg and few sporadic episodeswhen BP was above 220 mmg. . Her BP in house seems stable on most recording except few reading . Recommend to switch Nifedipine to Amlodipine 10 mg daily at night time and continue Labetalol 100 mgBID and will further adjust based based on BP over next 24-48 hours. - Recommend to do syncope work up ??# GAEL on CKD stage 3 Gb/4- serum creatinine on 09/27/18 was 2.39 mg/dl , most likely due to volume depletion, recent contrast exposure and orthostasis and 2.77 on admission which improved to 2.32 afterhydration. - Repeat urine electrolytes. Continue normal saline hydration 100 ml/hour as you are doing . Daily weight and strict input and output recording. - Avoid NSAIDS, contrast and nephrotoxin if possible. - Dose medication for current eGFR ?? # Acid/Base balance- Does not have metabolic acidosis. ?? # Anemia- Hemoglobin on 09/27 was 12. 9 gram/dl ; is at target ?? # BMD- Latest serum calcium and phosphorous is within normal limit ?? Thanks for letting us participate in the care of this patient. We will continue to follow Seen and Discussed w/ Dr.Graber Champ Valentine Nephrology Fellow Associated attestation - Marsha Guerra MD - 10/04/2018 8:54 PM EDT Renal Attending Inpatient Consult We are asked by Dr Oglesby to see Pretty Harmon in consultation regarding unstable BP, GAEL on CKD Pretty Harmon was seen and examined and discussed with the renal fellow Dr Valentine and the data and chart were reviewed. My findings including history, examination and review of data are accurately detailed in the note above and I agree with the recommendations above. We will continue to follow. Thank you for involving us in the care of this patient Plan of Care - Santo Macias, PT - 10/04/2018 3:37 PM EDT 10/04/18 1335 Rehab Evaluation Document Type contact Evaluation Not Performed Comment Pt is independent at this time, when asymptomatic. Seen by OT and was indep. Recommended slow transitional movements to adjust for orthostatic and ankle pumps before mobilizing. Other than that, pt is without PT needs at this time. Plan of Care - Liz Montoya OT - 10/04/2018 10:27 AM EDT Occupational Therapy Evaluation Patient profile:Pretty Harmon is a 67 y.o. year old female with past medical history of bilateral renal artery stenosis s/p right renal artery bypass on 09/07/18, HTN, HLD, AAA (3.7cm in 2018),??remote hxof hepatitis B s/p treatment,??hypothyroidism, and combined systolic and diastolic HF (EF30%, most recently 54% in August 2018 without valve disease) admitted on 10/02/2018 ( Hospital Day 1 day ) for recurrent syncope, orthostatic hypotension, and GAEL. Social History: Patient lives with her in [facility]. is retired and available to assist as needed. Home Setup: 2 levels. FOS to bedroom on 2nd level. Bathroom available on each level. 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 Pt was recently d/c'd from [facility] on 09/13 and has been receiving RN services through the [facility]. Pt has a recent hxof syncope episodes going back ~ 2 wks; fell at home Thursday and 2 x Thursday prior to admission. Precautions/Special Considerations: falls Subjective: I haven't had any pain. Objective: Seen today for OT evaluation. Cognitive Status/Behavior: ?? Behavior / Mood: alert and cooperative ?? Alert and oriented to: person, place, time and situation ?? Follows commands: multi step and 100% of the time ?? Attention: WFL ?? Safety awareness: WFL Vision & Perception: ?? corrective lenses mandrel maker Communication: WFL Range of motion, strength, coordination: Hand dominance: right Bilateral UEs are within functional limitations Sensation: intact Activities of Daily Living: Self-feeding: independent Dressing: independent Bathing: independent Toileting: Transfer: SBA Hygiene: independent Functional Mobility: Supine to sit: independent Sit to stand: independent Ambulation: independent; 150' without LOB or AD. Stand to sit: independent Sit to supine: independent Balance: Sitting balance: independent Standing balance: independent Vitals: At Rest SpO2 99% Heart Rate 78 Blood Pressure 170/82 supine 148/80 sitting 129/69 standing Pain: 0/10 Education: patient has been educated on Role of occupational therapy/rehabilitation, Functional Mobility, Activity pacing/Energy conservation, Recommendations and Discharge planning and verbalizes and d emonstrates understanding. Patient status, treatment, and mobility recommendations discussed with nursing. Assessment: Pt has been seen for occupational therapy evaluation. Pretty Harmon presents with the following performance skill deficits and client factors: decreased activity tolerance and deconditioning.These performance deficits have led to activity limitations and participation restrictions in the following areas of occupation: home management, work, leisure and community mobility. However, despite the deficits listed above pt demonstrates the ability to perform ADLs and functional mobility for ADLs independently. Pt denied c/o dizziness/lightheadedness during session and vitals were WDL. Pt will have assist from at home if needed and she anticipates [facility] upon [facility]. Anticipate that pt will return home once medically ready. Do not anticipate further OT needs while hospitalized. Equipment needs at discharge: none Anticipated Discharge Disposition: home Other Recommendations: No other consults recommended at this time OT: Therapy Frequency: evaluation only Total Evaluation Minutes, Occupational Therapy: 18(evaluation ) 2016 OT Evaluation Code Rationale: ?? Diagnosis & Pertinent Co-Morbidities affecting Plan of Care: see PMHx ?? Occupational Profile & Client History: Brief Expanded Extensive x ?? Assessment of Occupational Performance: 1-3 performance deficits x 3-5 performance deficits 5 + performance deficits ?? Clinical Decision Making: Low Moderate High x Clinical decision making of low complexity using standardized patient assessment instrument and measurable assessment of functional outcome. Pager: [phone] Liz Montoya OT 10/04/2018 Occupational Therapy Rehabilitation Department Plan of Care - Quinten George RN - 10/04/2018 5:01 AM EDT Problem: Patient Care Overview Goal: Plan of Care Review Outcome: Ongoing (Interventions Implemented as Appropriate) OUTCOME EVALUATION NOTE: ?? OUTCOME SUMMARY: ?? Pt continues to be hypertensive but improved with nifedipine and the addition of labetalol. Pt remains asymptomatic with all??other VSS. LR bolus finished, pt did not have dizziness or weakness when ambulating to the bathroom. Pt ambulated to bathroom w/ SBA, steady gait and tolerated well. Tele continued with no acute events overnight. Pt slept comfortably between care. PLAN MOVING FORWARD: ?? Monitor VS and labs Continue Telemetry Encourage PO intake ?? INDIVIDUALIZED FALL PREVENTION INTERVENTIONS: ?? Patient-specific fall risk factors per assessment: [current deficits]: syncope, weakness, dizziness ?? Assistance [level of assistance required for transfers and ambulation]: SBA ?? Supervision [direct monitoring required during toileting and ADLs]: Hands on ?? Surveillance [continuous indirect monitoring]: Hourly rounding, call carmona in reach, rings appropriately ?? Patient-specific fall prevention interventions for sensory deficits provided, if applicable: N/A ? CPG GOAL OUTCOME EVALUATION: N/A Plan of Care - Saima Franz RN - 10/03/2018 4:35 PM EDT Problem: Patient Care Overview Goal: Plan of Care Review Outcome: Ongoing (Interventions Implemented as Appropriate) 10/03/18 0845 10/03/18 1621 Plan of Care Review Progress -- progress toward functional goals as expected Coping/Psychosocial Plan Of Care Reviewed With patient -- OUTCOME EVALUATION NOTE: OUTCOME SUMMARY: VSS. Afebrile. Pretty continues to have high BP, up to 204/100, MD aware. Pretty still has orthostatic hypotension however is no longer complaining of dizziness while ambulating and has not had any syncopal episodes today. Per MD 1,000 mL LR fluid bolus given. Isosorbide mononitrate given this morning, order then D/C'd and Pretty started on labetalol BID. Pretty has been up in the chair for most of the day, her has been at bedside intermittently. Pretty denies any pain or nausea. UA ordered and sent to lab. Pretty continued on tele, in NSR throughout shift, continues to have ST depression unchanged from previous shift. PRN hydralazine ordered for SBP >180, given x1 this evening. BP continues to be h igh, paged, one time 10 mg hydralazine ordered and given. PLAN MOVING FORWARD: Continue to monitor BP and s/s of bleeding, PRN hydralazine for SBP >180. Continue to monitor fororthostatic hypotension and maintain pt on SBA for safety. INDIVIDUALIZED FALL PREVENTION INTERVENTIONS: Patient-specific fall risk factors per assessment: [current deficits]: IV access, history of syncopal episodes. Assistance [level of assistance required for transfers and ambulation]: SBA Supervision [direct monitoring required during toileting and ADLs]: Eye's on. Surveillance [continuous indirect monitoring]: Masimo, hourly rounding, telemetry, call's appropriately. Patient-specific fall prevention interventions for sensory deficits provided, if applicable: [X] N/A CPG GOAL OUTCOME EVALUATION: Goal: Individualization & Mutuality Outcome: Ongoing (Interventions Implemented as Appropriate) 10/03/18 1328 Mutuality/Individual Preferences What Anxieties, Fears or Concerns Do You Have About Your Health or Care? No What Questions Do You Have About Your Health or Care? No What Information Would Help Us Give You More Personalized Care? No Goal: Fall Prevention-Safe Patient Handling Outcome: Ongoing (Interventions Implemented as Appropriate) 10/03/18 0845 10/03/18 1034 10/03/18 1621 Daily Care Interventions Self-Care Promotion -- -- independence encouraged;BADL personal objects within reach;BADL personal routines maintained Lamb Fall Risk History of Falling 25 -- -- Secondary Diagnosis 15 -- -- Ambulatory Aids 0 -- -- Intravenous Therapy/Heparin/Saline Lock 20 -- -- Gait/Transferring 0 -- -- Mental Status 0 -- -- Score 60 -- -- OTHER Lamb Fall Risk High -- -- Restraint Interventions Safety Promotion/Fall Prevention nonskid shoes/slippers when out of bed;safety round/check completed-- -- Positioning Body Position independent -- -- Activity Activity Type -- ambulated to bathroom -- Activity Assistance Provided -- assistance, stand-by -- Assistive Device Utilized -- none -- Goal: Infection Control Outcome: Ongoing (Interventions Implemented as Appropriate) 10/03/18 0845 Safety Interventions Isolation Precautions standard precautions maintained Infection Prevention environmental surveillance performed;rest/sleep promoted;visitors restricted/screened Coping Strategies Supportive Measures active listening utilized;positive reinforcement provided;relaxation techniques promoted;self-care encouraged;self-responsibility promoted;verbalization of feelings encouraged Goal: Discharge Needs Assessment Outcome: Ongoing (Interventions Implemented as Appropriate) 10/03/18 1621 Discharge Needs Assessment Concerns To Be Addressed no discharge needs identified Readmission Within The Last 30 Days no previous admission in last 30 days Provider Choice List(s) Given no Equipment Needed After Discharge none Discharge Facility/Level Of Care Needs other (see comments) (Home) Current Discharge Risk chronically ill Discharge Disposition home or self-care;still a patient Current Health Outpatient/Agency/Support Group Needs homecare agency (specify level of care) Anticipated Changes Related to Illness none Activity/Self Care Review of Systems Equipment Currently Used at Home none Living Environment Transportation Available family or friend will provide;car Goal: Interdisciplinary Rounds/Family Conf Outcome: Ongoing (Interventions Implemented as Appropriate) 10/03/18 1621 Interdisciplinary Rounds/Family Conf Participants family;nursing;patient;physician Plan of Care - Quinten George RN - 10/03/2018 5:00 AM EDT Problem: Patient Care Overview Goal: Plan of Care Review Outcome: Ongoing (Interventions Implemented as Appropriate) OUTCOME EVALUATION NOTE: OUTCOME SUMMARY: Pt admitted to floor from ED for daily syncopal episodes in the morning at home. Pt has orthostatic hypotension, VSS on RA though systolic HTN 170s-200s, MD aware. Pt ambulated from stretcher to bed with SBA, tolerated well w/o dizziness. Pt is on Tele and noted to have a 3mm ST depression by clerk telegraph service, notified and EKG obtained which showed no change from previous EKG. Pt remained asymptomatic. 500mL LR bolus given, pt has good PO intake. Pt slept comfortably between care w/ masimo on. PLAN MOVING FORWARD: Monitor VS and labs Continue Telemetry Encourage PO intake INDIVIDUALIZED FALL PREVENTION INTERVENTIONS: Patient-specific fall risk factors per assessment: [current deficits]: syncope, weakness, dizziness Assistance [level of assistance required for transfers and ambulation]: SBA Supervision [direct monitoring required during toileting and ADLs]: Hands on Surveillance [continuous indirect monitoring]: Hourly rounding, call carmona in reach, rings appropriately Patient-specific fall prevention interventions for sensory deficits provided, if applicable: N/A CPG GOAL OUTCOME EVALUATION: N/A Consult Note - Leah Cline MD - 10/02/2018 8:31 PM EDT Patient Name: Pretty Harmon Patient Age: 67 y.o. Birthdate: 1950 Admit date: 10/02/2018 Attending Physician: Liliana Boss MD Vascular Surgery Inpatient Consultation Date of Consultation: 10/02/2018 Consult Service: Vascular Surgery Place of Service: (X) Emergency Department ( ) Inpatient Unit ( ) Critical care Responsible Attending: Dr. Causey Reason for Consult: We are seeing Pretty Harmon at the request of Dr. Liliana Boss MD in consultation for recent iliac to R renal bypass now w persistent hypotension, GAEL, and fainting. I have reviewed the available records, interviewed and examined the patient. History of Present Illness: Pretty Harmon is a 67 y.o. female w CKD stage 3 (baseline Cr ~2), systolic chronic CHF, hypertension. Pt is 3.5 weeks sp R iliac R renal bypass performed for hypertensive urgency/flash pulm edema. Pt hashad episodes hypotension at home down to 80s-90s, aidee in a.m. Hours with fainting episodes 1-2x daily. Pt seen by Aly Moody and Viridiana this past Tues. She has since attempted to increase PO intake to 3L daily but by log is urinating approx 4-5 L/day. Pt denies any CP or SOB. She does feel weak. She also notes blue R 4th toe and 4th toe pain. Pt is taking daily asa and statin. She takes labetalol andnifedipine for BP. No diuretic. Review of Systems: +weakness +light headedness +fainting No CP No SOB Past Medical History: Past Medical History: Diagnosis Date ??? AAA (abdominal aortic aneurysm) [id number] angiogram; 3.2 cm infrarenal ??? Constipation ??? Dyslipidemia ??? Hypertension ??? Insomnia ??? Peripheral vascular disease ??? Renal artery stenosis R; per 2010 angiogram Past Surgical History: Past Surgical History: Procedure Laterality Date ??? HYSTERECTOMY ? ? PRO CATHETER 1ST ORDER W/WO ART PUNCT/FLUORO/S&I BILATERAL Bilateral 09/01/[address] (FIRST-ORDER), MAIN RENAL ART & ANY ACC, W/S&I; ANDREY (WRVU 6.99) performedby Regan Chen MD at [facility] MAIN OR ??? PRO UPPER GI ENDOSCOPY, DIAGNOSTIC 01/20/2014 EGD, UPPER GI ENDOSCOPY performed by Corby Cano MD at [facility] ENDOSCOPY ??? PRO UPPER GI ENDOSCOPY, DIAGNOSTIC N/A 07/28/2017 EGD, UPPER GI ENDOSCOPY performed by Snow Liao MD at [facility] ENDOSCOPY ??? PRO VEIN BYPASS GRAFT, AORTOILIOFEMORAL N/A 09/07/2018 @BYPASS GRAFT, AORTOILIAC W\ VEIN CONDUIT (WRVU 41.88) performed by Isac Moody MD at [facility] MAIN OR Social History: Social History Socioeconomic History ??? [...] ~45 years up to 1 ppd at [employer], quit ~1999 Substance and Sexual Activity ??? [...] file Gets together: Not on file Attends islam service: Not on file Active member of [...] [employer] of 50 years. 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 Hoping to retire 11/2018 and travel throughout [facility] and [place] with [employer]. No history of heavy etoh use 2 children healthy Family History Family History Problem Relation Age of Onset ??? Hypertension Mother ??? Cervical Cancer Mother ??? Chronic Obstructive Pulmonary Disease Father ??? Hypertension Sister Home Medications: No current facility-administered medications on file prior to encounter. Current Outpatient Medications on File Prior to Encounter Medication Sig Dispense Refill ??? NIFEdipine (PROCARDIA XL) 30 mg Tablet Extended Rel 24 hr Take 30 mg by mouth nightly. Take at night if bp >100 ??? labetalol (NORMODYNE) 200 mg Tablet Take 1.5 tablets by mouth 2 times daily. 60 tablet 3 ??? acetaminophen (TYLENOL) 500 mg Tablet Take 1 tablet by mouth every 6 hours. 30 tablet 1 ??? isosorbide mononitrate (IMDUR) 30 mg Tablet Sustained Release 24 hr Take 1 tablet by mouth daily. 30 tablet 12 ??? gabapentin (NEURONTIN) 800 mg Tablet Take 1 tablet by mouth nightly. (Patient taking differently: Take 200 mg by mouth 3 times daily.) 30 tablet 3 ??? [DISCONTINUED] oxyCODONE (ROXICODONE) 5 mg Tablet Take 1 tablet by mouth every 4 hours as neededfor Pain. 4 tablet 0 ??? levothyroxine (SYNTHROID) 25 mcg Tablet Take 25 mcg by mouth daily. ??? aspirin 81 mg Tablet, Delayed Release (E.C.) Take 81 mg by mouth daily. ??? [DISCONTINUED] cholecalciferol, Vitamin D3, (VITAMIN D) 1,000 unit Tablet Take 1,000 Units by mouth. Allergies Allergies Allergen Reactions ??? Lisinopril Rise in creatinine Physical Exam: Temp: [36.4 ??C (97.5 ??F)] Heart Rate: [54-73] Resp: [16-22] BP: (108-187)/(57-90) SpO2: [97 %-98 %] Heart Rate from SpO2: [65 bpm-66 bpm] General: NAD, resting comfortably, very thin HEENT: PERRL, anicteric sclerae. CVS: Regular. Pulm: Normal work of breathing on room air. GI: Abdomen soft, non tender, non distended. MS: warm Neuro: Grossly nonfocal, moving all extremities. Vascular Strongly palpable R DP Weakly palpable L DP R 4th toe w cyanotic toe tip Feet warm Incision at R flank c/d/i, steri strips/alex in place Labs: Recent Labs 10/02/18 1443 WBC 7.0 HGB 11.6* HCT 34.4* PLATELET 287 Recent Labs 10/02/18 1443 NA 132* K 4.2 CL 94* CO2 23 BUN 47* CREATININE 2.77* CALCIUM 9.7 Assessment: Pretty Harmon is a 67 y.o. female 3.5 wks sp R iliac to R renal bypass for renal occlusion in setting of repeat episodes hypertension urgency and flash pulm edema. Now urinating ~5L/day and having episodes dehydration and low blood pressures w associated syncope. Recommendation: -aggressive IV hydration -hold BP meds, would aim for higher SBPs as pre op pt was consistently in 160s- 200s and is having trouble re-equilibating -close Is and Os, seems to be urinating 5L/day, having trouble keeping up w PO fluid intake -blue 4th toe likely embolic from surgery, this should resole w time and aspirin, in interrim recommend tylenol for pain -please notify dr kemp's team (nephrology) that pt is in house as he has been following pt closely -appreciate medicine assistance in care of Ms. Harmon X Consult service will continue to follow patient. Recommendations are above, please page if further consultation required. Leah Cline MD/SANDY, PGY-5 Section of Vascular Surgery, Pager [phone] documented in this encounter Plan of Treatment Scheduled Procedures Name Priority Associated Diagnoses Date/Time EGD, UPPER GI ENDOSCOPY Gastroesophageal reflux disease, esophagitis presence not specifi ed documented as of this encounter Procedures Procedure Name Priority Date/Time Associated Diagnosis Comme nts HEMOGRAM Routine 10/07/2018 6:25 AM Results f or this EDT procedure are i n the results section. DIFFERENTIAL, Routine 10/07/2018 6:25 AM Results for this AUTOMATED EDT procedure are i n the results section. CBC (WITH DIFF) Routine 10/07/2018 6:25 AM EDT MAGNESIUM Routine 10/07/2018 6:25 AM Results f or this EDT procedure are i n the results section. BASIC METABOLIC Routine 10/07/2018 6:25 AM Result s for this PANEL (NON-FASTING) EDT procedur e are in the results section. RENAL ARTERY DUPLEX, Routine 10/06/2018 7:53 AM Renal artery R esults for this UNIL EDT stenosis procedure are i n the results section. HEMOGRAM Routine 10/06/2018 5:17 AM Results f or this EDT procedure are i n the results section. DIFFERENTIAL, Routine 10/06/2018 5:17 AM Results for this AUTOMATED EDT procedure are i n the results section. CBC (WITH DIFF) Routine 10/06/2018 5:17 AM EDT MAGNESIUM Routine 10/06/2018 5:17 AM Results f or this EDT procedure are i n the results section. BASIC METABOLIC Routine 10/06/2018 5:17 AM Result s for this PANEL (NON-FASTING) EDT procedur e are in the results section. ELECTROLYTES, URINE, Routine 10/05/2018 9:32 PM R esults for this RANDOM EDT procedure are i n the results section. CREATININE, URINE, Routine 10/05/2018 9:32 PM Res ults for this RANDOM EDT procedure are i n the results section. HEMOGRAM Routine 10/05/2018 6:45 AM Results f or this EDT procedure are i n the results section. DIFFERENTIAL, Routine 10/05/2018 6:45 AM Results for this AUTOMATED EDT procedure are i n the results section. CBC (WITH DIFF) Routine 10/05/2018 6:45 AM EDT MAGNESIUM Routine 10/05/2018 6:45 AM Results f or this EDT procedure are i n the results section. BASIC METABOLIC Routine 10/05/2018 6:45 AM Result s for this PANEL (NON-FASTING) EDT procedur e are in the results section. URINALYSIS Routine 10/04/2018 7:00 PM Results f or this MICROSCOPIC EXAM EDT procedure a re in the results section. URINALYSIS WITH Routine 10/04/2018 7:00 PM Result s for this REFLEX CULTURE EDT procedure are in the results section. TSH CASCADE Routine 10/04/2018 4:44 AM Results f or this EDT procedure are i n the results section. HEMOGRAM Routine 10/04/2018 4:44 AM Results f or this EDT procedure are i n the results section. DIFFERENTIAL, Routine 10/04/2018 4:44 AM Results for this AUTOMATED EDT procedure are i n the results section. CBC (WITH DIFF) Routine 10/04/2018 4:44 AM EDT T4, FREE Routine 10/04/2018 4:44 AM Results f or this EDT procedure are i n the results section. MAGNESIUM Routine 10/04/2018 4:44 AM Results f or this EDT procedure are i n the results section. BASIC METABOLIC Routine 10/04/2018 4:44 AM Result s for this PANEL (NON-FASTING) EDT procedur e are in the results section. URINALYSIS STAT 10/03/2018 5:00 PM Results f or this MICROSCOPIC EXAM EDT procedure a re in the results section. ELECTROLYTES, URINE, Routine 10/03/2018 5:00 PM R esults for this RANDOM EDT procedure are i n the results section. CREATININE, URINE, Routine 10/03/2018 5:00 PM Res ults for this RANDOM EDT procedure are i n the results section. URINALYSIS WITH STAT 10/03/2018 5:00 PM Result s for this REFLEX CULTURE EDT procedure are in the results section. HEMOGRAM Routine 10/03/2018 3:29 AM Results f or this EDT procedure are i n the results section. DIFFERENTIAL, Routine 10/03/2018 3:29 AM Results for this AUTOMATED EDT procedure are i n the results section. CBC (WITH DIFF) Routine 10/03/2018 3:29 AM EDT TSH Routine 10/03/2018 3:29 AM Results f or this EDT procedure are i n the results section. MAGNESIUM Routine 10/03/2018 3:29 AM Results f or this EDT procedure are i n the results section. HEMOGLOBIN A1C Routine 10/03/2018 3:29 AM Results for this EDT procedure are i n the results section. HEPATIC FUNCTION Routine 10/03/2018 3:29 AM Resul ts for this PANEL EDT procedure are i n the results section. BASIC METABOLIC Routine 10/03/2018 3:29 AM Result s for this PANEL (NON-FASTING) EDT procedur e are in the results section. EKG 12-LEAD STAT 10/02/2018 10:54 Syncope, unspecified Res ults for this PM EDT syncope type procedure are i n the results section. TROPONIN STAT 10/02/2018 8:45 PM Results f or this EDT procedure are i n the results section. XR CHEST PA AND STAT 10/02/2018 4:47 PM Result s for this LATERAL EDT procedure are i n the results section. EKG 12-LEAD STAT 10/02/2018 4:03 PM Results f or this EDT procedure are i n the results section. BLOOD GAS 2 VENOUS Routine 10/02/2018 3:33 PM Res ults for this EDT procedure are i n the results section. EKG 12-LEAD STAT 10/02/2018 2:48 PM Results f or this EDT procedure are i n the results section. HEMOGRAM STAT 10/02/2018 2:43 PM Results f or this EDT procedure are i n the results section. DIFFERENTIAL, STAT 10/02/2018 2:43 PM Results for this AUTOMATED EDT procedure are i n the results section. GOLD TUBE HOLD STAT 10/02/2018 2:43 PM Results for this EDT procedure are i n the results section. BLUE TUBE HOLD STAT 10/02/2018 2:43 PM Results for this EDT procedure are i n the results section. CBC (WITH DIFF) STAT 10/02/2018 2:43 PM EDT TROPONIN STAT 10/02/2018 2:43 PM Results f or this EDT procedure are i n the results section. BASIC METABOLIC STAT 10/02/2018 2:43 PM Result s for this PANEL (NON-FASTING) EDT procedur e are in the results section. documented in this encounter Results (ABNORMAL) Differential, Automated (10/07/2018 6:25 AM EDT) [facility] Method Time Signature Neutrophils % 58.0 % [facility] Neutr Abs (ANC) 4.62 1.70 - [facility] 6.10 [facility] x10(3)/[facility] LABORATORY Lymphocytes % 17.2 % [facility] Lymphocytes Abs 1.4 0.9 - 3.2 [facility] x10(3)/[facility] LABORATORY Monocytes % 12.1 % [facility] Monocyte Abs 1.0 (H) 0.3 - 0.9 [facility] x10(3)/[facility] LABORATORY Eosinophils % 11.1 % [facility] Eosinophils Abs 0.9 (H) 0.0 - 0.4 [facility] x10(3)/[facility] LABORATORY Basophils % 1.0 % [facility] Basophils Abs 0.1 0.0 - 0.1 [facility] x10(3)/[facility] LABORATORY Immature Gran % 0.60 % [facility] Comment: Immature granulocytes(IG's)percentage an d absolute count will include metamyelocytes, myelocytes, and promyelo cytes. Blood smears from CBCs yielding IG's will be scanned manually for concor dance. If this scan disagrees with the automated IG or if promyelocytes are not ed, a manual differential will be performed. Blanca Gran Abs 0.05 (H) 0.00 - 0.04 x10(3)/[facility] LABORATORY Specimen Anatomical Collection Method Collection Time Receive d Time (Source) Location / / Volume Laterality Blood specimen 10/07/2018 6:25 AM 019 6:39 (specimen) EDT AM EDT Resulting Agency Comment Spec In Lab Marty Viveros MD HEMATOLOGY ORDERABLES Performing Organization Address City/State/[place] [address] (ABNORMAL) Hemogram (10/07/2018 6:25 AM EDT) Analysis Performed At Patho logist Time Signature WBC 8.0 4.0 - 9.5 [facility] x10(3)/[facility] LABORATORY RBC 3.49 (L) 4.00 - [facility] 5.21 [facility] x10(6)/[facility] LABORATORY Hemoglobin 10.6 (L) 11.7 - [place] 15.5 gm/dL [facility] Hematocrit 32.3 (L) 35.7 - [place] 45.8 % [facility] MCV 92.6 82.6 - [place] 94.4 [facility] LABORATORY MCH 30.4 27.1 - [place] 32.0 pg [facility] MCHC 32.8 31.7 - [place] 35.0 gm/dL [facility] Platelets 283 145 - 357 [place] x10(3)/[facility] LABORATORY RDWSD 51.3 (H) 37.0 - [place] 46.0 [facility] LABORATORY RDWCV 15.0 (H) 11.5 - [facility]ENT[facility] 14.1 % [facility] MPV 10.8 7.6 - 12.9 [facility] nRBC % Auto 0.0 % [facility] nRBC Abs Auto 0.000 0.000 - [place] 0.000 [facility] x10(3)/[facility] LABORATORY Specimen Anatomical Collection Method Collection Time Receive d Time (Source) Location / / Volume Laterality Blood specimen 10/07/2018 6:25 AM 019 6:39 (specimen) EDT AM EDT Resulting Agency Comment Spec In Lab Marty Viveros MD HEMATOLOGY ORDERABLES Performing Organization Address City/[facility]/[place]IP [place] [address] Magnesium (10/07/2018 6:25 AM EDT) P athologist Signature Magnesium 0.80 0.69 - 1.07 [facility] mmol/L [facility]OR[facility] Specimen Anatomical Collection Method Collection Time Receive d Time (Source) Location / / Volume Laterality Blood specimen 10/07/2018 6:25 AM 019 6:39 (specimen) EDT AM EDT Resulting Agency Comment Spec In Lab Hernandez Oglesby MD CHEMISTRY ORDERABLES Performing Organization Address City/[facility]/[place] [address] (ABNORMAL) Basic Metabolic Panel (non-fasting) (10/07/2018 6:25 AM EDT) P athologist Signature Glucose Lvl 105 65 - 199 [facility] mg/dL [facility] Comment: Diabetes: >=200 mg/dL plus symp toms BUN 28 (H) 8 - 18 mg/dL [facility] Creatinine 2.43 (H) 0.70 - 1.20 mg/dL [facility] Sodium 137 135 - 145 mmol/L [facility] Potassium 3.8 3.5 - 5.0 mmol/L [facility] Comment: Please note: ??Patients with WBC >100,00 0 may have falsely elevated Potassium levels. ??For accurate Potassium quantif ication in these patients send serum separator tube (gold top) for subsequent determinations. ??Contact the Clinical Chemistry Laboratory if there are any qu estions. Chloride 103 98 - 107 mmol/L [facility] CO2 18 (L) 22 - 31 mmol/L [facility] Anion Gap 16 (H) 5 - 15 mmol/L [facility] Calcium 9.1 8.5 - 10.5 mg/dL [facility] Estimated GFR 20 (L) >=60 mL/min/1.73 m?? [facility] Comment: The eGFR was calculated using the CKD-EP I equation. As with all creatinine based estimates of kidney function, eGFR values calculated with the CKD-EPI equation are not accurate in patients wi th acute kidney failure, extremes of body mass or the acutely ill. http://Integrated biometrics/[facility]ULSAnkf eGFR 23 (L) >=60 mL/min/1.73 m?? [facility] Comment: The eGFR was calculated using the CKD-EP I equation. As with all creatinine based estimates of kidney function, eGFR values calculated with the CKD-EPI equation are not accurate in patients wi th acute kidney failure, extremes of body mass or the acutely ill. http://Integrated biometrics/[facility]SAnkf Specimen Anatomical Collection Method Collection Time Receive d Time (Source) Location / / Volume Laterality Blood specimen 10/07/2018 6:25 AM 019 6:39 (specimen) EDT AM EDT Resulting Agency Comment Spec In Lab Hernandez Oglesby MD CHEMISTRY ORDERABLES Performing Organization Address City/State/ZIP Code Phon e Number [place] [id number] HOSPITAL LAB[address]ORY Drive Renal Artery Duplex, Unil (10/06/2018 7:53 AM EDT) Component Value Ref Test Analysis Performed At [facility] gist Range Method Time Signature VB Text Department: Vascular Surgery Lab VASCUBASE Report Patient: [id number] (PRETTY HARMON) CPT: 57265 ICD10: I70.1 Referring Physician: HERNANDEZ OGLESBY ?? 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 hamlinlyn wells ICD10 Diagnosis Code: I70.1 Findings: Renal Artery Distal, Right ? PSV (cm/s): 37 ? EDV (cm/s): 7 ? RI: 0.80 Mid Pole Renal Parenchyma, Right ? PSV (cm/s): 15 ? EDV (cm/s): 4 ? RI: 0.72 Renal Hilum, Right ? AT (ms): 34 Kidney Length, Right ? Length (cm): 10.2 Renal Vein, Right ? Patent: Patent Interpretation: Right: Exam again limited by bowel gas. There is luis l flow characteristics within the kidney. The renal artery is patent distally with much lower velocities than previous exam (PSV 37 cm/s; previously 82 cm/s). Bypass not visualized. Previous Renal Studies: Date ? Right PSV - RAR ? Left PSV - RAR ? 320 ?3.37 ? 255 ?2. 68 ? 45 ? 1.15 ? 177 ?4. 54 ? 163 ?---- ? ---- ? --- - ? 82 ? ---- ? ---- ? --- - Current Exam ?? 37 ? ---- ? ---- ? ---- Electronically Signed by: LEAH PEREZ on 2018-10-07 01:13:32 PM VB Text End of Report VASCUBASE Report Specimen (Source) Anatomical Collection Method Collection Time Re ceived Time Location / / Volume Laterality 10/06/2018 7:53 AM EDT Hernandez Oglesby MD VASCULAR ORDERABLES Performing Organization Address City/State/ZIP Code Phon e Number [facility] (ABNORMAL) Differential, Automated (10/06/2018 5:17 AM EDT) [facility] gist Method Time Signature Neutrophils % 44.9 % [facility] Neutr Abs (ANC) 3.33 1.70 - [facility] 6.10 [facility] x10(3)/[facility] LABORATORY Lymphocytes % 25.5 % [facility] Lymphocytes Abs 1.9 0.9 - 3.2 [facility] x10(3)/[facility] LABORATORY Monocytes % 14.8 % [facility] Monocyte Abs 1.1 (H) 0.3 - 0.9 [facility] x10(3)/[facility] LABORATORY Eosinophils % 12.8 % [facility] Eosinophils Abs 1.0 (H) 0.0 - 0.4 [facility] x10(3)/[facility] LABORATORY Basophils % 1.2 % [facility] Basophils Abs 0.1 0.0 - 0.1 [facility] x10(3)/[facility] LABORATORY Immature Gran % 0.80 % [facility] Comment: Immature granulocytes(IG's)percentage an d absolute count will include metamyelocytes, myelocytes, and promyelo cytes. Blood smears from CBCs yielding IG's will be scanned manually for kevyn bowen. If this scan disagrees with the automated IG or if promyelocytes are not ed, a manual differential will be performed. Blanca Gran Abs 0.06 (H) 0.00 - 0.04 x10(3)/[facility] LABORATORY Specimen Anatomical Collection Method Collection Time Receive d Time (Source) Location / / Volume Laterality Blood specimen 10/06/2018 5:17 AM 019 5:21 (specimen) EDT AM EDT Resulting Agency Comment Spec In Lab Marty Viveros MD HEMATOLOGY ORDERABLES Performing Organization Address City/State/Z[place] [address] (ABNORMAL) Hemogram (10/06/2018 5:17 AM EDT) Analysis Performed At Patho logist Time Signature WBC 7.4 4.0 - 9.5 [facility] x10(3)/[facility] LABORATORY RBC 3.50 (L) 4.00 - [facility] 5.21 [facility] x10(6)/[facility] LABORATORY Hemoglobin 10.8 (L) 11.7 - [facility] gm/dL [facility] Hematocrit 32.0 (L) 35.7 - [facility] 45.8 % [facility] MCV 91.4 82.6 - [facility] 94.4 [facility] LABORATORY MCH 30.9 27.1 - [facility] 32.0 pg [facility] MCHC 33.8 31.7 - [facility] 35.0 gm/dL [facility] Platelets 265 145 - 357 [facility] x10(3)/[facility] LABORATORY RDWSD 50.5 (H) 37.0 - [facility] 46.0 [facility] LABORATORY RDWCV 14.8 (H) 11.5 - [facility] 14.1 % [facility] LABORATORY MPV 10.4 7.6 - 12.9 [facility] LABORATORY nRBC % Auto 0.0 % [facility] nRBC Abs Auto 0.000 0.000 - [facility] 0.000 [facility] x10(3)/[facility] LABORATORY Specimen Anatomical Collection Method Collection Time Receive d Time (Source) Location / / Volume Laterality Blood specimen 10/06/2018 5:17 AM 019 5:21 (specimen) EDT AM EDT Resulting Agency Comment Spec In Lab Marty Viveros MD HEMATOLOGY ORDERABLES Performing Organization Address City/[facility]/ZIP Code Phon e Number [address] Magnesium (10/06/2018 5:17 AM EDT) athologist Signature Magnesium 0.79 0.69 - 1.07 [facility] mmol/L [facility] LABOR[facility]ORY Specimen Anatomical Collection Method Collection Time Receive d Time (Source) Location / / Volume Laterality Blood specimen 10/06/2018 5:17 AM 019 5:21 (specimen) EDT AM EDT Resulting Agency Comment Spec In Lab Hernandez Oglesby MD CHEMISTRY ORDERABLES Performing Organization Address City/[facility]/[place] [address] (ABNORMAL) Basic Metabolic Panel (non-fasting) (10/06/2018 5:17 AM EDT) athologist Signature Glucose Lvl 106 65 - 199 [facility] mg/dL [facility] Comment: Diabetes: >=200 mg/dL plus symp toms BUN 31 (H) 8 - 18 mg/dL [facility] Creatinine 2.62 (H) 0.70 - 1.20 mg/dL [facility] Sodium 136 135 - 145 [...] 107 mmol/L [facility] CO2 22 22 - 31 mmol/L [facility] Anion Gap 15 5 - 15 mmol/L [facility] Calcium 9.1 8.5 - 10.5 mg/dL [facility] Estimated GFR 18 (L) >=60 mL/min/1.73 m?? [facility] Comment: The eGFR was calculated using the CKD-EP I equation. As with all creatinine based estimates of kidney function, eGFR values calculated with the CKD-EPI equation are not accurate in patients wi th acute kidney failure, extremes of body mass or the acutely ill. http://Integrated biometrics/[facility]SAnkf eGFR 21 (L) >=60 mL/min/1.73 m?? [facility] Comment: The eGFR was calculated using the CKD-EP I equation. As with all creatinine based estimates of kidney function, eGFR values calculated with the CKD-EPI equation are not accurate in patients wi th acute kidney failure, extremes of body mass or the acutely ill. http://Integrated biometrics/DHMCnkf Specimen Anatomical Collection Method Collection Time Receive d Time (Source) Location / / Volume Laterality Blood specimen 10/06/2018 5:17 AM 019 5:21 (specimen) EDT AM EDT Resulting Agency Comment Spec In Lab Hernandez Oglesby MD CHEMISTRY ORDERABLES Performing Organization Address City/[facility]/ZIP Code Phon e Number [address] Creatinine, urine, random (10/05/2018 9:32 PM EDT) P athologist Signature U Creatinine 29 mg/dL [facility] Specimen Anatomical Collection Method Collection Time Receive d Time (Source) Location / / Volume Laterality Urine specimen 10/05/2018 9:32 PM 019 9:41 (specimen) EDT PM EDT Resulting Agency Comment Spec In Lab Hernandez Oglesby MD URINE ORDERABLES Performing Organization Address City/[facility]/ZIP Code Phon e Number [address] Electrolytes, urine, random (10/05/2018 9:32 PM EDT) P athologist Signature U Sodium 57 mmol/L [facility] U Potassium 16 mmol/L [facility] U Chloride 44 mmol/L [facility] Specimen Anatomical Collection Method Collection Time Receive d Time (Source) Location / / Volume Laterality Urine specimen 10/05/2018 9:32 PM 019 9:41 (specimen) EDT PM EDT Resulting Agency Comment Spec In Lab Hernandez Oglesby MD URINE ORDERABLES Performing Organization Address City/State/Z[place] [address] (ABNORMAL) Differential, Automated (10/05/2018 6:45 AM EDT) [facility] gist Method Time Signature Neutrophils % 59.4 % [facility] Neutr Abs (ANC) 5.03 1.70 - [facility] 6.10 [facility] x10(3)/[facility] LABORATORY Lymphocytes % 16.7 % [facility] Lymphocytes Abs 1.4 0.9 - 3.2 [facility] x10(3)/[facility] LABORATORY Monocytes % 12.5 % [facility] Monocyte Abs 1.1 (H) 0.3 - 0.9 [facility] x10(3)/[facility] LABORATORY Eosinophils % 10.0 % [facility] Eosinophils Abs 0.8 (H) 0.0 - 0.4 [facility] x10(3)/[facility] LABORATORY Basophils % 0.8 % [facility] Basophils Abs 0.1 0.0 - 0.1 [facility] x10(3)/[facility] LABORATORY Immature Gran % 0.60 % [facility] Comment: Immature granulocytes(IG's)percentage an d absolute count will include metamyelocytes, myelocytes, and promyelo cytes. Blood smears from CBCs yielding IG's will be scanned manually for concor dance. If this scan disagrees with the automated IG or if promyelocytes are not ed, a manual differential will be performed. Blanca Gran Abs 0.05 (H) 0.00 - 0.04 x10(3)/[facility] LABORATORY Specimen Anatomical Collection Method Collection Time Receive d Time (Source) Location / / Volume Laterality Blood specimen 10/05/2018 6:45 AM 019 6:50 (specimen) EDT AM EDT Resulting Agency Comment Spec In Lab Marty Viveros MD HEMATOLOGY ORDERABLES Performing Organization Address City/State/Z[place] [address] (ABNORMAL) Hemogram (10/05/2018 6:45 AM EDT) Analysis Performed At Patho logist Time Signature WBC 8.5 4.0 - 9.5 [facility] LABORATORY RBC 3.93 (L) 4.00 - [facility] 5.21 [facility] x10(6)/[facility] LABORATORY Hemoglobin 11.8 11.7 - [facility] 15.5 gm/dL [facility]ORY Hematocrit 35.2 (L) 35.7 - [facility] 45.8 % [facility]ORY MCV 89.6 82.6 - [facility] 94.4 [facility] LABORATORY MCH 30.0 27.1 - [place] [place] 32.0 pg [facility] LABORATORY MCHC 33.5 31.7 - [place] [place] 35.0 gm/dL [facility]ORY Platelets 310 145 - 357 [facility] x10(3)/[facility] LABORATORY RDWSD 48.6 (H) 37.0 - [facility] 46.0 [facility] LABORATORY RDWCV 14.7 (H) 11.5 - [facility] 14.1 % [facility] LABORATORY MPV 10.9 7.6 - 12.9 [facility] nRBC % Auto 0.0 % [facility] nRBC Abs Auto 0.000 0.000 - [facility] 0.000 [facility] x10(3)/[facility] LABORATORY Specimen Anatomical Collection Method Collection Time Receive d Time (Source) Location / / Volume Laterality Blood specimen 10/05/2018 6:45 AM 019 6:50 (specimen) EDT AM EDT Resulting Agency Comment Spec In Lab Marty Viveros MD HEMATOLOGY ORDERABLES Performing Organization Address City/State/ZIP Code Phon e Number [place] Magnesium (10/05/2018 6:45 AM EDT) athologist Signature Magnesium 0.81 0.69 - 1.07 [facility] mmol/L [facility] LABORATORY Specimen Anatomical Collection Method Collection Time Receive d Time (Source) Location / / Volume Laterality Blood specimen 10/05/2018 6:45 AM 019 6:50 (specimen) EDT AM EDT Resulting Agency Comment Spec In Lab Hernandez Oglesby MD CHEMISTRY ORDERABLES Performing Organization Address City/State/ZIP Code Phon e Number [address] (ABNORMAL) Basic Metabolic Panel (non-fasting) (10/05/2018 6:45 AM EDT) athologist Signature Glucose Lvl 136 65 - 199 [facility] mg/dL [facility] LABORATORY Comment: Diabetes: >=200 mg/dL plus symp toms BUN 34 (H) 8 - 18 mg/dL [facility]ORY Creatinine 2.48 (H) 0.70 - 1.20 mg/dL [facility]ORY Sodium 135 135 - 145 mmol/L [facility] [...] estions. Chloride 100 98 - 107 mmol/L [facility] CO2 19 (L) 22 - 31 mmol/L [facility] Anion Gap 16 (H) 5 - 15 mmol/L [facility]OR[facility]ORY Calcium 9.4 8.5 - 10.5 mg/dL [facility] Estimated GFR 19 (L) >=60 mL/min/1.73 m?? [facility] Comment: The eGFR was calculated using the CKD-EP I equation. As with all creatinine based estimates of kidney function, eGFR values calculated with the CKD-EPI equation are not accurate in patients wi th acute kidney failure, extremes of body mass or the acutely ill. http://Integrated biometrics/[facility] TULSAnkf eGFR 22 (L) >=60 mL/min/1.73 m?? [facility] Comment: The eGFR was calculated using the CKD-EP I equation. As with all creatinine based estimates of kidney function, eGFR values calculated with the CKD-EPI equation are not accurate in patients wi th acute kidney failure, extremes of body mass or the acutely ill. http://Integrated biometrics/[facility]SAnkf Specimen Anatomical Collection Method Collection Time Receive d Time (Source) Location / / Volume Laterality Blood specimen 10/05/2018 6:45 AM 019 6:50 (specimen) EDT AM EDT Resulting Agency Comment Spec In Lab Hernandez Oglesby MD CHEMISTRY ORDERABLES Performing Organization Address City/[facility]/[place] [address] Urinalysis Microscopic Exam (10/04/2018 7:00 PM EDT) P athologist Signature RBC UA 1 0 - 4 /HPF [facility] WBC UA 2 0 - 5 /HPF [facility] Squam Epith UA 1 <=4 /HPF [facility] Specimen (Source) Anatomical Collection Method Collection Time Re ceived Time Location / / Volume Laterality Urine specimen 10/04/2018 7:00 10/04/2018 7:16 obtained by clean PM EDT PM EDT catch procedure (specimen) Resulting Agency Comment Spec In Lab Nina Joya MD URINE ORDERABLES Performing Organization Address City/[facility]/ZIP Code Phon e Number [address] (ABNORMAL) Urinalysis with reflex Culture (10/04/2018 7:00 PM EDT) Patholo gist Method Time Signature Glucose UA 50 (A) Negative [facility]ORY Protein UA 100 (A) Negative [facility] Bilirubin UA Negative Negative [facility] mg/dL [facility] Comment: Clinical correlation required for positi ve Urine Bilirubin results as false positive may occur with some drugs and d rug related products. If a false positive is suspected a serum total bili blandon should be considered if clinically indicated. Urobilinogen UA Normal Normal mg/dL [facility] pH UA 7.0 5.0 - 8.0 [facility] Blood UA Negative Negative mg/dL [facility] Ketones UA Negative Negative mg/dL [facility] Nitrite UA Negative Negative [facility] Leukocytes UA Negative Negative [facility] LABORATORY Appearance UA Clear Clear [facility] Spec [place] UA 1.009 1.002 - 1.030 [facility] Color UA Straw Yellow [facility] Culture Reflexed No [facility] Specimen (Source) Anatomical Collection Method Collection Time Re ceived Time Location / / Volume Laterality Urine specimen 10/04/2018 7:00 10/04/2018 7:16 obtained by clean PM EDT PM EDT catch procedure (specimen) Resulting Agency Comment Spec In Lab Hernandez Oglesby MD URINE ORDERABLES Performing Organization Address City/[facility]/ZIP Code Phon e Number [address] T4, free (10/04/2018 4:44 AM EDT) P athologist Signature Free T4 1.03 0.93 - 1.70 [facility] ng/dL [facility] Specimen Anatomical Collection Method Collection Time Receive d Time (Source) Location / / Volume Laterality Blood specimen 10/04/2018 4:44 AM 019 5:14 (specimen) EDT AM EDT Resulting Agency Comment Spec In Lab Nina Joya MD CHEMISTRY ORDERABLES Performing Organization Address City/State/ZIP Code Phon e Number [address] (ABNORMAL) Differential, Automated (10/04/2018 4:44 AM EDT) Patholo gist Method Time Signature Neutrophils % 45.9 % [facility] Neutr Abs (ANC) 3.60 1.70 - [facility] 6.10 [facility] x10(3)/[facility] LABORATORY Lymphocytes % 27.4 % [facility] Lymphocytes Abs 2.2 0.9 - 3.2 [facility] x10(3)/[facility] LABORATORY Monocytes % 10.6 % [facility] Monocyte Abs 0.8 0.3 - 0.9 [facility] x10(3)/[facility] LABORATORY Eosinophils % 14.4 % [facility] Eosinophils Abs 1.1 (H) 0.0 - 0.4 [facility] x10(3)/[facility] LABORATORY Basophils % 0.9 % [facility] Basophils Abs 0.1 0.0 - 0.1 [facility] x10(3)/[facility] LABORATORY Immature Gran % 0.80 % [facility] Comment: Immature granulocytes(IG's)percentage an d absolute count will include metamyelocytes, myelocytes, and promyelo cytes. Blood smears from CBCs yielding IG's will be scanned manually for concor dance. If this scan disagrees with the automated IG or if promyelocytes are not ed, a manual differential will be performed. Blanca Gran Abs 0.06 (H) 0.00 - 0.04 x10(3)/[facility] LABORATORY Specimen Anatomical Collection Method Collection Time Receive d Time (Source) Location / / Volume Laterality Blood specimen 10/04/2018 4:44 AM 019 5:14 (specimen) EDT AM EDT Resulting Agency Comment Spec In Lab Nina Joya MD HEMATOLOGY ORDERABLES Performing Organization Address City/State/[place] [address] (ABNORMAL) Hemogram (10/04/2018 4:44 AM EDT) Analysis Performed At [facility] logist Time Signature WBC 7.8 4.0 - 9.5 [facility] x10(3)/[facility] LABORATORY RBC 3.91 (L) 4.00 - [place] ZHANG 5.21 [facility] x10(6)/[facility] LABORATORY Hemoglobin 11.9 11.7 - [place] 15.5 gm/dL [facility] Hematocrit 35.6 (L) 35.7 - [place] 45.8 % [facility] MCV 91.0 82.6 - [facility] 94.4 [facility] LABORATORY MCH 30.4 27.1 - [place] 32.0 pg [facility] MCHC 33.4 31.7 - [place] 35.0 gm/dL [facility] Platelets 309 145 - 357 [place] x10(3)/[facility] LABORATORY RDWSD 49.4 (H) 37.0 - [facility] 46.0 [facility] LABORATORY RDWCV 14.8 (H) 11.5 - [facility] 14.1 % [facility] MPV 11.0 7.6 - 12.9 [facility] ZHANG [facility] LABORATORY nRBC % Auto 0.0 % [facility] nRBC Abs Auto 0.000 0.000 - [place] ZHANG 0.000 [facility] x10(3)/[facility] LABORATORY Specimen Anatomical Collection Method Collection Time Receive d Time (Source) Location / / Volume Laterality Blood specimen 10/04/2018 4:44 AM 019 5:14 (specimen) EDT AM EDT Resulting Agency Comment Spec In Lab Nina Joya MD HEMATOLOGY ORDERABLES Performing Organization Address City/State/ZIP Code Phon [place] [address] Magnesium (10/04/2018 4:44 AM EDT) P athologist Signature Magnesium 0.85 0.69 - 1.07 [place] [place] mmol/L [facility] Specimen Anatomical Collection Method Collection Time Receive d Time (Source) Location / / Volume Laterality Blood specimen 10/04/2018 4:44 AM 019 5:14 (specimen) EDT AM EDT Resulting Agency Comment Spec In Lab Hernandez Oglesby MD CHEMISTRY ORDERABLES Performing Organization Address City/State/[place] [address] (ABNORMAL) Basic Metabolic Panel (non-fasting) (10/04/2018 4:44 AM EDT) athologist Signature Glucose Lvl 99 65 - 199 [facility] mg/dL [facility] Comment: Diabetes: >=200 mg/dL plus symp toms BUN 32 (H) 8 - 18 mg/dL [facility] Creatinine 2.32 (H) 0.70 - 1.20 mg/dL [facility] Sodium 137 135 - 145 [...] estions. Chloride 102 98 - 107 mmol/L [facility] CO2 23 22 - 31 mmol/L [facility] Anion Gap 12 5 - 15 mmol/L [facility] Calcium 9.3 8.5 - 10.5 mg/dL [facility] Estimated GFR 21 (L) >=60 mL/min/1.73 m?? [facility] Comment: The eGFR was calculated using the CKD-EP I equation. As with all creatinine based estimates of kidney function, eGFR values calculated with the CKD-EPI equation are not accurate in patients wi th acute kidney failure, extremes of body mass or the acutely ill. http://Integrated biometrics/[facility] TULSAnkf eGFR 24 (L) >=60 mL/min/1.73 m?? [facility] Comment: The eGFR was calculated using the CKD-EP I equation. As with all creatinine based estimates of kidney function, eGFR values calculated with the CKD-EPI equation are not accurate in patients wi th acute kidney failure, extremes of body mass or the acutely ill. http://Integrated biometrics/[facility] TULSAnkf Specimen Anatomical Collection Method Collection Time Receive d Time (Source) Location / / Volume Laterality Blood specimen 10/04/2018 4:44 AM 019 5:14 (specimen) EDT AM EDT Resulting Agency Comment Spec In Lab Hernandez Oglesby MD CHEMISTRY ORDERABLES Performing Organization Address City/State/ZIP Code Phon e Number [address] (ABNORMAL) TSH [place] (10/04/2018 4:44 AM EDT) P athologist Signature TSH 8.83 (H) 0.27 - 4.20 [facility] mcIU/mL [facility] Specimen Anatomical Collection Method Collection Time Receive d Time (Source) Location / / Volume Laterality Blood specimen 10/04/2018 4:44 AM 019 5:14 (specimen) EDT AM EDT Resulting Agency Comment Spec In Lab Hernandez Oglesby MD CHEMISTRY ORDERABLES Performing Organization Address City/[facility]/ZIP Code Phon e Number [address] Urinalysis Microscopic Exam (10/03/2018 5:00 PM EDT) P athologist Signature RBC UA 1 0 - 4 /HPF [facility] WBC UA <1 0 - 5 /HPF [facility] Squam Epith UA 1 <=4 /HPF [facility] Specimen (Source) Anatomical Collection Method Collection Time Re ceived Time Location / / Volume Laterality Urine specimen 10/03/2018 5:00 10/03/2018 5:11 obtained by clean PM EDT PM EDT catch procedure (specimen) Resulting Agency Comment Spec In Lab Nina Joya MD URINE ORDERABLES Performing Organization Address City/[facility]/ZIP Code Phon e Number [address] Creatinine, urine, random (10/03/2018 5:00 PM EDT) P athologist Signature U Creatinine 43 mg/dL [facility] Specimen Anatomical Collection Method Collection Time Receive d Time (Source) Location / / Volume Laterality Urine specimen 10/03/2018 5:00 PM 019 5:11 (specimen) EDT PM EDT Resulting Agency Comment Spec In Lab Hernandez Oglesby MD URINE ORDERABLES Performing Organization Address City/State/[place] [address] Electrolytes, urine, random (10/03/2018 5:00 PM EDT) P athologist Signature U Sodium 38 mmol/L [facility] U Potassium 26 mmol/L [facility] U Chloride 33 mmol/L [facility] Specimen Anatomical Collection Method Collection Time Receive d Time (Source) Location / / Volume Laterality Urine specimen 10/03/2018 5:00 PM 019 5:11 (specimen) EDT PM EDT Resulting Agency Comment Spec In Lab Hernandez Oglesby MD URINE ORDERABLES Performing Organization Address City/[facility]/ZIP Code Phon e Number [address] (ABNORMAL) Urinalysis with reflex Culture (10/03/2018 5:00 PM EDT) Patholo gist Method Time Signature Glucose UA Negative Negative [facility] mg/dL [facility] Protein UA 100 (A) Negative [facility] Bilirubin UA Negative Negative [facility]/dL [facility] Comment: Clinical correlation required for positi ve Urine Bilirubin results as false positive may occur with some drugs and d rug related products. If a false positive is suspected a serum total bili blandon should be considered if clinically indicated. Urobilinogen UA Normal Normal mg/dL [facility] pH UA 7.0 5.0 - 8.0 [facility] Blood UA Negative Negative mg/dL [facility] Ketones UA Negative Negative mg/dL [facility] Nitrite UA Negative Negative [facility] Leukocytes UA Negative Negative [facility] LABORATORY Appearance UA Clear Clear [facility] Spec [place] UA 1.009 1.002 - 1.030 [facility] Color UA Straw Yellow [facility] Culture Reflexed No [facility] Specimen (Source) Anatomical Collection Method Collection Time Re ceived Time Location / / Volume Laterality Urine specimen 10/03/2018 5:00 10/03/2018 5:11 obtained by clean PM EDT PM EDT catch procedure (specimen) Resulting Agency Comment Spec In Lab Liliana Boss MD URINE ORDERABLES Performing Organization Address City/State/ZIP Code Phon e Number [address] (ABNORMAL) TSH (10/03/2018 3:29 AM EDT) P athologist Signature TSH 6.95 (H) 0.27 - 4.20 [facility] mcIU/mL [facility] Specimen Anatomical Collection Method Collection Time Receive d Time (Source) Location / / Volume Laterality Blood specimen Venous Draw / 10/03/2018 3:29 AM 2018 5:46 (specimen) Unknown EDT AM EDT Resulting Agency Comment Spec In Lab Nina Joya MD CHEMISTRY ORDERABLES Performing Organization Address City/[facility]/ZIP Code Phon e Number [address] (ABNORMAL) Differential, Automated (10/03/2018 3:29 AM EDT) Patholo gist Method Time Signature Neutrophils % 48.1 % [facility] Neutr Abs (ANC) 4.25 1.70 - [facility] 6.10 [facility] x10(3)/[facility] LABORATORY Lymphocytes % 25.4 % [facility] Lymphocytes Abs 2.2 0.9 - 3.2 [facility] x10(3)/[facility] LABORATORY Monocytes % 11.0 % [facility] Monocyte Abs 1.0 (H) 0.3 - 0.9 [facility] x10(3)/[facility] LABORATORY Eosinophils % 13.5 % [facility] Eosinophils Abs 1.2 (H) 0.0 - 0.4 [facility] x10(3)/[facility] LABORATORY Basophils % 1.0 % [facility] Basophils Abs 0.1 0.0 - 0.1 [facility] x10(3)/[facility] LABORATORY Immature Gran % 1.00 % [facility] Comment: Immature granulocytes(IG's)percentage an d absolute count will include metamyelocytes, myelocytes, and promyelo cytes. Blood smears from CBCs yielding IG's will be scanned manually for concor dance. If this scan disagrees with the automated IG or if promyelocytes are not ed, a manual differential will be performed. Blanca Gran Abs 0.09 (H) 0.00 - 0.04 x10(3)/[facility] LABORATORY Specimen Anatomical Collection Method Collection Time Receive d Time (Source) Location / / Volume Laterality Blood specimen 10/03/2018 3:29 AM 019 4:08 (specimen) EDT AM EDT Resulting Agency Comment Spec In Lab Nina Joya MD HEMATOLOGY ORDERABLES Performing Organization Address City/State/ZIP Code Phon e Number [place] [id number] HOSPITAL LAB[address]ORY Drive (ABNORMAL) Hemogram (10/03/2018 3:29 AM EDT) Analysis Performed At Patho logist Time Signature WBC 8.8 4.0 - 9.5 [facility] x10(3)/[facility] LABORATORY RBC 3.91 (L) 4.00 - [place] 5.21 [facility] x10(6)/[facility] LABORATORY Hemoglobin 12.0 11.7 - [facility] 15.5 gm/dL [facility] Hematocrit 35.3 (L) 35.7 - [facility] 45.8 % [facility] MCV 90.3 82.6 - [facility] 94.4 fL [facility] MCH 30.7 27.1 - [place] [place] 32.0 pg [facility] MCHC 34.0 31.7 - [facility] 35.[facility] gm/dL [facility] Platelets 299 145 - 357 [facility] x10(3)/[facility] LABORATORY RDWSD 48.9 (H) 37.0 - [facility] 46.0 [facility] LABORATORY RDWCV 14.7 (H) 11.5 - [facility] 14.1 % [facility] MPV 10.8 7.6 - 12.9 [facility] LABORATORY nRBC % Auto 0.0 % [facility] nRBC Abs Auto 0.000 0.000 - [facility] 0.000 [facility] x10(3)/[facility] LABORATORY Specimen Anatomical Collection Method Collection Time Receive d Time (Source) Location / / Volume Laterality Blood specimen 10/03/2018 3:29 AM 019 4:08 (specimen) EDT AM EDT Resulting Agency Comment Spec In Lab Nina Joya MD HEMATOLOGY ORDERABLES Performing Organization Address City/[facility]/ZIP Code Phon e Number [address] Magnesium (10/03/2018 3:29 AM EDT) athologist Signature Magnesium 0.85 0.69 - 1.07 [facility] mmol/L [facility] Specimen Anatomical Collection Method Collection Time Receive d Time (Source) Location / / Volume Laterality Blood specimen 10/03/2018 3:29 AM 019 4:08 (specimen) EDT AM EDT Resulting Agency Comment Spec In Lab Hernandez Oglesby MD CHEMISTRY ORDERABLES Performing Organization Address City/State/[place] [address] (ABNORMAL) Basic Metabolic Panel (non-fasting) (10/03/2018 3:29 AM EDT) P athologist Signature Glucose Lvl 92 65 - 199 [facility] mg/dL [facility] Comment: Diabetes: >=200 mg/dL plus symp toms BUN 42 (H) 8 - 18 mg/dL [facility] Creatinine 2.48 (H) 0.70 - 1.20 mg/dL [facility] Sodium 136 135 - 145 [...] 107 mmol/L [facility] CO2 22 22 - 31 mmol/L [facility] Anion Gap 15 5 - 15 mmol/L [facility] Calcium 9.2 8.5 - 10.5 mg/dL [facility] Estimated GFR 19 (L) >=60 mL/min/1.73 m?? [facility] Comment: The eGFR was calculated using the CKD-EP I equation. As with all creatinine based estimates of kidney function, eGFR values calculated with the CKD-EPI equation are not accurate in patients wi th acute kidney failure, extremes of body mass or the acutely ill. http://Integrated biometrics/[facility]ULSAnkf eGFR 22 (L) >=60 mL/min/1.73 m?? [facility] Comment: The eGFR was calculated using the CKD-EP I equation. As with all creatinine based estimates of kidney function, eGFR values calculated with the CKD-EPI equation are not accurate in patients wi th acute kidney failure, extremes of body mass or the acutely ill. http://Integrated biometrics/[facility]Ankf Specimen Anatomical Collection Method Collection Time Receive d Time (Source) Location / / Volume Laterality Blood specimen 10/03/2018 3:29 AM 019 4:08 (specimen) EDT AM EDT Resulting Agency Comment Spec In Lab Hernandez Oglesby MD CHEMISTRY ORDERABLES Performing Organization Address City/State/Z[place] [address] Hemoglobin A1c (10/03/2018 3:29 AM EDT) P athologist Signature Hemoglobin A1C 5.5 4.3 - 5.6 [facility] Comment: Reference Range: 4.3 - 5.6% 5.7 - 6.4% - Increased Risk of Developin g Diabetes Mellitus >= 6.5% - Consistent with diagnosis of D iabetes Mellitus In the absence of hyperglycemia (i.e. pl asma glucose > 200 mg/dL) or classic symptoms of hyperglycemia a repeat measu rement of HbA1c should be performed on a separate sample to confirm the diagnos is. Diagnosis and Classification of Diabetes Mellitus, Diabetes Care 2013; 36: Suppl. 1, S67-74 Est Avg Gluc 111 mg/dL [facility] Comment: eAG equivalents for HbA1c percentages: HbA1c(%) ?eAG(mg/dL) 6.0 ?126 6.5 ?140 7.0 ?154 7.5 ?169 8.0 ?183 8.5 ?197 9.0 ?212 9.5 ?226 10.0 ? 240 Limitations: The eAG calculation has not been validated on women, individuals below 18 years old and above 70 years old, and individuals with hemoglobinopathies. Additional resources are available on [facility] ADA website. Emanuel TRINIDAD, Darion J, Susana R, et al. ??Tr anslating the A1C assay into estimated average glucose values. ??Diabetes Care 2008:31(8):3586-0224. Specimen Anatomical Collection Method Collection Time Receive d Time (Source) Location / / Volume Laterality Blood specimen 10/03/2018 3:29 AM 019 4:08 (specimen) EDT AM EDT Resulting Agency Comment Spec In Lab Liliana Boss MD CHEMISTRY ORDERABLES Performing Organization Address City/State/ZIP Code [place] [address] (ABNORMAL) Hepatic Function Panel (10/03/2018 3:29 AM EDT) Analysis Performed At Patho logist Time Signature Total Protein 6.4 6.1 - 8.0 [facility] gm/dL [facility] Albumin 3.4 3.2 - 5.2 [facility] gm/dL [facility] AST 19 0 - 30 [facility] unit/L [facility] ALT 13 0 - 30 [facility] unit/L [facility] Alk Phos 72 40 - 104 [facility]L [facility] Total <0.2 (L) 0.2 - 1.3 [facility] Bilirubin mg/dL [facility] Bili, Direct 0.1 0.0 - 0.3 [facility] mg/dL [facility] Specimen Anatomical Collection Method Collection Time Receive d Time (Source) Location / / Volume Laterality Blood specimen 10/03/2018 3:29 AM 019 4:08 (specimen) EDT AM EDT Resulting Agency Comment Spec In Lab Liliana Boss MD CHEMISTRY ORDERABLES Performing Organization Address City/State/ZIP Code Phon e Number [address] EKG 12 Lead (10/02/2018 10:54 PM EDT) Component Value Ref Range Test Analysis Performed Pathologis t Method Time At Signature Ventricular rate 65 BPM MUSE SYSTEM Atrial Rate 65 BPM MUSE SYSTEM P-R Interval 146 ms MUSE SYSTEM QRS Duration 84 ms MUSE SYSTEM Q-T Interval 456 ms MUSE SYSTEM QTC Calculated 474 ms MUSE SYSTEM (Bezet) Calculated P [place] 74 degrees MUSE SYSTEM Calculated R [place] 40 degrees MUSE SYSTEM Calculated T [place] 87 degrees MUSE SYSTEM INTERPRETATION Normal sinus rhythm MUSE SYSTEM Left ventricular hypertrophy with repolarization abnormality Abnormal ECG When compared with ECG of 02-OCT-2018 16:03, No significant change was found Confirmed by MD Be, Jamie ([id number]) on 10/03/2018 10:10:00 PM Specimen Anatomical Collection Method Collection Time Receive d Time (Source) Location / / Volume Laterality 10/02/2018 10:54 10/03/2018 PM EDT 10:10 PM EDT Hernandez Oglesby MD ECG ORDERABLES Performing Organization Address City/State/ZIP Code Phon e Number MUSE SYSTEM (ABNORMAL) Troponin (10/02/2018 8:45 PM EDT) P athologist Signature Troponin-T 0.01 (H) 0.00 - [place] ZHANG 0.00 ng/mL [facility] Comment: The 99th percentile for Troponin T is le ss than 0.01 ng/mL, any detectable cTnT concentration using this assay should be considered elevated. According to the third universal definit ion of myocardial infarction the following criteria with a clinical prese ntation consistent with acute myocardial ischemia meets the diagnosis for a myocardial infarction ([place]). Detection of a rise and/or fall of [...] additional sample may be indicated. Reference: Third [place] Definition of Myocardial Infarction. Journal of the [place] [employer] 2012;60:1581-98 Specimen Anatomical Collection Method Collection Time Receive d Time (Source) Location / / Volume Laterality Blood specimen 10/02/2018 8:45 PM 019 8:57 (specimen) EDT PM EDT Resulting Agency Comment Spec In Lab Liliana Boss MD CHEMISTRY ORDERABLES Performing Organization Address City/State/ZIP Code Ph[place] [address] XR Chest PA & Lateral (Generic) (10/02/2018 4:47 PM EDT) Anatomical Region Laterality Modality Chest N/A Digital Radiography Specimen (Source) Anatomical Location Collection Method / Collectio n Time Received Time / Laterality Volume Impressions 10/02/2018 5:24 PM EDT Hyperexpanded lungs but no acute infiltrate or congestive changes. The previous left lower lobe pneumonia has resolved a s has the right lower lobe infiltrate and effusion since the prior study Thank you for letting us participate in the care of this patient. For questions regarding this report, please contact e number below. ? Narrative 10/02/2018 5:24 PM EDT EXAMINATION: XR CHEST PA AND LATERAL (GENERIC) CLINICAL HISTORY: recurrent syncope TECHNIQUE: PA and lateral chest and lateral views o f the chest COMPARISON: 09/06/2018 FINDINGS: The heart size is normal and the lungs a nd pleural spaces are clear. Pulmonary vascularity is unremarkable. The lungs a re hyperexpanded and the diaphragm is flattened. The bony thorax is intact Procedure Note Dann Jiménez MD - 10/02/2018Format ting of this note might be different from the original. EXAMINATION: XR CHEST PA AND LATERAL (GE NERIC) CLINICAL HISTORY: recurrent syncope TECHNIQUE: PA and lateral chest and lateral views o f the chest COMPARISON: 09/06/2018 FINDINGS: The heart size is normal and the lungs a nd pleural spaces are clear. Pulmonary vascularity is unremarkable. The lungs a re hyperexpanded and the diaphragm is flattened. The bony thorax is intact IMPRESSION Hyperexpanded lungs but no acute infiltr ate or congestive changes. The previous left lower lobe pneumonia has resolved a s has the right lower lobe infiltrate and effusion since the prior study Thank you for letting us participate in the care of this patient. For questions regarding this report, please contact e number below. Lexus Guardado MD IMG DX ORDERABLES EKG 12 Lead (10/02/2018 4:03 PM EDT) Component Value Ref Range Test Analysis Performed Pathologis t Method Time At Signature Ventricular rate 56 BPM MUSE SYSTEM Atrial Rate 56 BPM MUSE SYSTEM P-R Interval 142 ms MUSE SYSTEM QRS Duration 82 ms MUSE SYSTEM Q-T Interval 488 ms MUSE SYSTEM QTC Calculated 470 ms MUSE SYSTEM (Bezet) Calculated P [place] 51 degrees MUSE SYSTEM Calculated R [place] 29 degrees MUSE SYSTEM Calculated T [place] 76 degrees MUSE SYSTEM INTERPRETATION Sinus bradycardia MUSE SY STEM Left ventricular hypertrophy with repolarization abnormality Abnormal ECG When compared with ECG of 02-OCT-2018 14:48, (unconfirmed) No significant change was found Confirmed by MD Be, Jamie ([id number]) on 10/02/2018 8:38:22 PM Specimen Anatomical Collection Method Collection Time Receive d Time (Source) Location / / Volume Laterality 10/02/2018 4:03 PM 9 8:38 EDT PM EDT Lexus Guardado MD ECG ORDERABLES Performing Organization Address City/State/ZIP Code Phon e Number MUSE SYSTEM (ABNORMAL) BLOOD GAS 2 VENOUS (10/02/2018 3:33 PM EDT) P athologist Signature pH Ward 7.37 7.32 - [facility] 7.42 [facility] pCO2 Ward 43 41 - 51 [facility] LABORATORY pO2 Ward 21 (L) 25 - 40 [facility]ORY HCO3 Ward 24.2 mmol/L [facility] BE Ward -1.1 mmol/L [facility] Hgb Blood Gas 12.0 11.7 - [facility] 15.5 gm/dL [facility] O2HB Ward 38.7 % [facility] COHB Ward 0.4 % [facility] Comment: Nonsmokers: 0.5-1.5% COHB Smokers: Variable, but usually less than 10% Toxic: 20-30% COHB Lethal: Greater than 60% COHB METHB Ward 0.7 <=1.5 % [facility] Na Whole Blood 130 (L) 135 - 145 mmol/L [facility] K Whole Blood 4.0 3.5 - 5.0 mmol/L [facility] Comment: Please note: Patients with WBC >100,000 may have falsely elevated Potassium levels. Contact the Clinical Chemistry L aboratory if there are any questions. ICa Whole Blood 1.21 1.15 - 1.33 mmol/L [facility] Comment: Note: ??Total bilirubin higher than 20 m g/dL may lead to falsely low ionized calcium. CL Whole Blood 93 (L) 98 - 107 mmol/L [facility] Gluc Whole Bld 79 65 - 199 mg/dL [facility] Comment: Diabetes: >=200 mg/dL plus symp toms Lactate WB 1.1 0.5 - 2.2 mmol/L [facility] BGas Source Venous [facility] Specimen Anatomical Collection Method Collection Time Receive d Time (Source) Location / / Volume Laterality Blood specimen 10/02/2018 3:33 PM 019 3:33 (specimen) EDT PM EDT Lexus Guardado MD CHEMISTRY ORDERABLES Performing Organization Address City/State/[place] [address] EKG 12 Lead (10/02/2018 2:48 PM EDT) Component Value Ref Range Test Analysis Performed Pathologis t Method Time At Signature Ventricular rate 62 BPM MUSE SYSTEM Atrial Rate 62 BPM MUSE SYSTEM P-R Interval 154 ms MUSE SYSTEM QRS Duration 86 ms MUSE SYSTEM Q-T Interval 490 ms MUSE SYSTEM QTC Calculated 497 ms MUSE SYSTEM (Bezet) Calculated P [place] 73 degrees MUSE SYSTEM Calculated R [place] 42 degrees MUSE SYSTEM Calculated T [place] 98 degrees MUSE SYSTEM INTERPRETATION Normal sinus rhythm MUSE SYSTEM Possible Left atrial enlargement Left ventricular hypertrophy with repolarization abnormality Prolonged QT Abnormal ECG When compared with ECG of 03-SEP-2018 03:21, Nonspecific T wave abnormality now evident in Inferior leads T wave inversion now evident in Anterolateral leads Confirmed by MD Be, Jamie ([id number]) on 10/02/2018 8:38:17 PM Specimen Anatomical Collection Method Collection Time Receive d Time (Source) Location / / Volume Laterality 10/02/2018 2:48 PM 9 8:38 EDT PM EDT Lexus Guardado MD ECG ORDERABLES Performing Organization Address City/State/ZIP Code Phon e Number MUSE SYSTEM Gold Tube HOLD (10/02/2018 2:43 PM EDT) P athologist Signature Gold Hold Sample in [facility] LABORATORY Specimen Anatomical Collection Method Collection Time Receive d Time (Source) Location / / Volume Laterality Blood specimen Venous Draw / 10/02/2018 2:43 PM 2018 3:06 (specimen) Unknown EDT PM EDT Lexus Guardado MD CHEMISTRY ORDERABLES Performing Organization Address City/State/ZIP Code Phon e Number [address] Blue Tube HOLD (10/02/2018 2:43 PM EDT) P athologist Signature Blue Hold Sample in [facility] LABORATORY Specimen Anatomical Collection Method Collection Time Receive d Time (Source) Location / / Volume Laterality Blood specimen Venous Draw / 10/02/2018 2:43 PM 2018 3:06 (specimen) Unknown EDT PM EDT Lexus Guardado MD HEMATOLOGY ORDERABLES Performing Organization Address City/[facility]/[place]IP [place] [address] (ABNORMAL) Differential, Automated (10/02/2018 2:43 PM EDT) [facility] gist Method Time Signature Neutrophils % 48.7 % [facility] Neutr Abs (ANC) 3.40 1.70 - [facility] 6.10 [facility] x10(3)/[facility] LABORATORY Lymphocytes % 21.2 % [facility] Lymphocytes Abs 1.5 0.9 - 3.2 [facility] x10(3)/[facility] LABORATORY Monocytes % 13.4 % [facility] Monocyte Abs 0.9 0.3 - 0.9 [facility] x10(3)/[facility] LABORATORY Eosinophils % 13.7 % [facility] Eosinophils Abs 1.0 (H) 0.0 - 0.4 [facility] x10(3)/[facility] LABORATORY Basophils % 1.4 % [facility] Basophils Abs 0.1 0.0 - 0.1 [facility] x10(3)/[facility] LABORATORY Immature Gran % 1.60 % [facility] Comment: Immature granulocytes(IG's)percentage an d absolute count will include metamyelocytes, myelocytes, and promyelo cytes. Blood smears from CBCs yielding IG's will be scanned manually for concor dance. If this scan disagrees with the automated IG or if promyelocytes are not ed, a manual differential will be performed. Blanca Gran Abs 0.11 (H) 0.00 - 0.04 x10(3)/[facility] LABORATORY Specimen Anatomical Collection Method Collection Time Receive d Time (Source) Location / / Volume Laterality Blood specimen 10/02/2018 2:43 PM 019 3:05 (specimen) EDT PM EDT Resulting Agency Comment Spec In Lab Lexus Guardado MD HEMATOLOGY ORDERABLES Performing Organization Address City/State/[place] [address] (ABNORMAL) Hemogram (10/02/2018 2:43 PM EDT) Analysis Performed At Patho logist Time Signature WBC 7.0 4.0 - 9.5 [facility] x10(3)/[facility] LABORATORY RBC 3.84 (L) 4.00 - [facility] 5.21 [facility] x10(6)/[facility] LABORATORY Hemoglobin 11.6 (L) 11.7 - [facility] 15.5 gm/dL [facility] Hematocrit 34.4 (L) 35.7 - [facility] 45.8 % [facility] MCV 89.6 82.6 - [facility] 94.4 fL [facility] MCH 30.2 27.1 - [facility] 32.0 pg [facility] MCHC 33.7 31.7 - [facility] 35.0 gm/dL [facility] Platelets 287 145 - 357 [facility] x10(3)/[facility] LABORATORY RDWSD 48.5 (H) 37.0 - [facility]AKIA ZHANG 46.0 [facility] LABORATORY RDWCV 14.7 (H) 11.5 - [facility] 14.1 % [facility] MPV 10.4 7.6 - 12.9 [facility] Z[facility] LABORATORY nRBC % Auto 0.0 % [facility] nRBC Abs Auto 0.000 0.000 - [facility] ZHANG 0.000 [facility] x10(3)/[facility] LABORATORY Specimen Anatomical Collection Method Collection Time Receive d Time (Source) Location / / Volume Laterality Blood specimen 10/02/2018 2:43 PM 019 3:05 (specimen) EDT PM EDT Resulting Agency Comment Spec In Lab Lexus Guardado MD HEMATOLOGY ORDERABLES Performing Organization Address City/State/ZIP Code Phon e Number [place] [phone] LAB[address]ORY [address] (ABNORMAL) Troponin (10/02/2018 2:43 PM EDT) athologist Signature Troponin-T 0.02 (H) 0.00 - [facility] 0.00 ng/mL [facility] Comment: Called by: CRISTINA, Read back by: Ravi Gunderson_ , Date/Time:10/02/18 15:51. The 99th percentile for Troponin T is le ss than 0.01 ng/mL, any detectable cTnT concentration using this assay should be considered elevated. According to the third universal definit ion of myocardial infarction the following criteria with a clinical prese ntation consistent with acute myocardial ischemia meets the diagnosis for a myocardial infarction ([place]). Detection of a rise and/or fall of [...] additional sample may be indicated. Reference: Third [place] Definition of Myocardial Infarction. Journal of the [place] [employer] 2012;60:1581-98 Specimen Anatomical Collection Method Collection Time Receive d Time (Source) Location / / Volume Laterality Blood specimen 10/02/2018 2:43 PM 019 3:05 (specimen) EDT PM EDT Resulting Agency Comment Spec In Lab Lexus Guardado MD CHEMISTRY ORDERABLES Performing Organization Address City/State/[place] [address] (ABNORMAL) Basic Metabolic Panel (non-fasting) (10/02/2018 2:43 PM EDT) athologist Signature Glucose Lvl 105 65 - 199 [facility] mg/dL [facility] Comment: Diabetes: >=200 mg/dL plus symp toms BUN 47 (H) 8 - 18 mg/dL [facility] Creatinine 2.77 (H) 0.70 - 1.20 mg/dL [facility] Sodium 132 (L) 135 - 145 mmol/L [facility] Potassium 4.2 3.5 - 5.0 mmol/L [facility] Comment: Please note: ??Patients with WBC >100,00 0 may have falsely elevated Potassium levels. ??For accurate Potassium quantif ication in these patients send serum separator tube (gold top) for subsequent determinations. ??Contact the Clinical Chemistry Laboratory if there are any qu estions. Chloride 94 (L) 98 - 107 mmol/L [facility] CO2 23 22 - 31 mmol/L [facility] Anion Gap 15 5 - 15 mmol/L [facility] Calcium 9.7 8.5 - 10.5 mg/dL [facility] Estimated GFR 17 (L) >=60 mL/min/1.73 m?? [facility] Comment: The eGFR was calculated using the CKD-EP I equation. As with all creatinine based estimates of kidney function, eGFR values calculated with the CKD-EPI equation are not accurate in patients wi th acute kidney failure, extremes of body mass or the acutely ill. http://[employer]/[facility]kf eGFR 19 (L) >=60 mL/min/1.73 m?? [facility] Comment: The eGFR was calculated using the CKD-EP I equation. As with all creatinine based estimates of kidney function, eGFR values calculated with the CKD-EPI equation are not accurate in patients wi th acute kidney failure, extremes of body mass or the acutely ill. http://[employer]/[facility] Specimen Anatomical Collection Method Collection Time Receive d Time (Source) Location / / Volume Laterality Blood specimen 10/02/2018 2:43 PM 019 3:05 (specimen) EDT PM EDT Resulting Agency Comment Spec In Lab Lexus Guardado MD CHEMISTRY ORDERABLES Performing Organization Address City/State/ZIP Code Phon e Number [place] [phone]OS[address] LAB[address] documented in this encounter Visit Diagnoses Diagnosis Syncope, unspecified syncope type Renal artery stenosis Atherosclerosis of renal artery Severe protein-calorie malnutrition Other severe protein-calorie malnutritio n documented in this encounter Admitting Diagnoses Diagnosis Syncope Syncope and collapse documented in this encounter Administered Medications Inactive Administered Medications - up to 3 most recent administrations Medication Order MAR Action Action Date Dose Rate Site amLODIPine (NORVASC) tablet 10 mg Given 10/06/2018 8:33 AM EDT 10 mg 10 mg, Oral, DAILY, First dose on Thu10/05/18 at 1400, Until Discontinued, Routine Given 10/05/2018 2:17 PM EDT 10 mg amLODIPine (NORVASC) tablet 10 mg Given 10/06/2018 4:47 PM EDT 10 mg 10 mg, Oral, EVERY EVENING, First dose (after last modification) on Thu10/06/18 at 1700, Until Discontinued, Routine aspirin EC tablet 81 mg Given 10/07/2018 8:30 AM EDT 81 mg 81 mg, Oral, DAILY, First dose on Thu10/03/18 at 0900, Until Discontinued, Routine Given 10/06/2018 8:34 AM EDT 81 mg Given 10/05/2018 9:50 AM EDT 81 mg atorvastatin (LIPITOR) tablet 20 mg Given 10/06/2018 8:41 PM EDT 20 mg 20 mg, Oral, EVERY EVENING, First dose on Thu10/06/18 at 2015, Until Discontinued, Routine calcium carbonate (Tums) chewable tablet 500 Given 03/2019 4:47 PM EDT 500 mg mg 500 mg, Oral, ONCE, 1 dose, On Thu10/06/18 at 1630, Routine gabapentin (NEURONTIN) capsule 200 mg Given 10/07/2018 2:57 PM EDT 200 mg 200 mg, Oral, 3 TIMES DAILY, First dose on Thu10/02/18 at 2115, Until Discontinued, Routine Given 10/07/2018 8:30 AM EDT 200 mg Given 10/06/2018 8:40 PM EDT 200 mg heparin (Porcine) subcutaneous injection Given 019 6:10 AM EDT 5,000 Units 5,000 Units 5,000 Units, Subcutaneous, EVERY 8 HOURS SCHEDULED, First dose on Thu10/02/18 at 2200, Until Discontinued, Routine Given 10/06/2018 10:20 PM EDT 5,000 Units Given 10/06/2018 1:40 PM EDT 5,000 Units hydrALAZINE (APRESOLINE) injection 10 mg Given 10/03/2018 6:59 PM EDT 10 mg 10 mg, Intravenous, ONCE PRN, 1 dose, Starting on Thu10/03/18 at 1853, Until Thu10/03/18 at 1859, High Blood Pressure, For SBP > 180, Routine hydrALAZINE (APRESOLINE) injection 10 mg Given 10/04/2018 3:45 PM EDT 10 mg 10 mg, Intravenous, ONCE PRN, 1 dose, Starting on Thu10/04/18 at 1512, Until Thu10/04/18 at 1545, High Blood Pressure, For SBP > 180, Routine hydrALAZINE (APRESOLINE) injection 15 mg Given 10/06/2018 6:34 PM EDT 15 mg 15 mg, Intravenous, ONCE, 1 dose, On Thu10/06/18 at 1845 hydrALAZINE (APRESOLINE) injection 5 mg Given 10/04/2018 10:01 AM EDT 5 mg 5 mg, Intravenous, EVERY 6 HOURS PRN, Starting on Thu10/03/18 at 1726, Until Thu10/04/18 at 1744, High Blood Pressure, GIve for SBP>180 Given 10/03/2018 5:52 PM EDT 5 mg isosorbide mononitrate (IMDUR) CR tablet 30 mg Given 10/03/2018 8:43 AM EDT 30 mg 30 mg, Oral, DAILY, First dose on Thu10/03/18 at 0900, Until Discontinued, DO NOT CRUSH OR OPEN, Routine isosorbide mononitrate (IMDUR) CR tablet 30 mg Given 10/05/2018 4:30 PM EDT 30 mg 30 mg, Oral, ONCE, 1 dose, On Thu10/05/18 at 1630, DO NOT CRUSH OR OPEN, Routine isosorbide mononitrate (IMDUR) CR tablet 30 mg Given 10/05/2018 6:28 PM EDT 30 mg 30 mg, Oral, ONCE, 1 dose, On Thu10/05/18 at 1815, DO NOT CRUSH OR OPEN, Routine isosorbide mononitrate (IMDUR) CR tablet 30 mg Given 10/06/2018 4:50 AM EDT 30 mg 30 mg, Oral, ONCE, 1 dose, On Thu10/06/18 at 0500, DO NOT CRUSH OR OPEN, Routine isosorbide mononitrate (IMDUR) CR tablet 90 Given 10/07/2018 11:14 AM EDT 90 mg mg 90 mg, Oral, DAILY AT NOON, First dose on Thu10/06/18 at 1200, Until Discontinued, DO NOT CRUSH OR OPEN, Routine Given 10/06/2018 11:35 AM EDT 90 mg labetalol (NORMODYNE) tablet 100 mg Given 10/04/2018 8:16 AM EDT 100 mg 100 mg, Oral, 2 TIMES DAILY, First dose on Thu10/03/18 at 1215, Until Discontinued, Please hold for SBP<110., Routine Given 10/03/2018 9:12 PM EDT 100 mg Given 10/03/2018 1:40 PM EDT 100 mg labetalol (NORMODYNE) tablet 100 mg Given 10/06/2018 11:34 AM EDT 100 mg 100 mg, Oral, ONCE, 1 dose, On Thu10/06/18 at 1045, Routine labetalol (NORMODYNE) tablet 200 mg Given 10/06/2018 8:32 AM EDT 200 mg 200 mg, Oral, 2 TIMES DAILY, First dose (after last modification) on Thu10/04/18 at 1930, Until Discontinued, Please hold for SBP<110., STAT Given 10/05/2018 8:14 PM EDT 200 mg Given 10/05/2018 9:48 AM EDT 200 mg labetalol (NORMODYNE) tablet 300 mg Given 10/07/2018 8:31 AM EDT 300 mg 300 mg, Oral, 2 TIMES DAILY, First dose (after last modification) on Thu10/06/18 at 2100, Until Discontinued, Please hold for SBP<110., STAT Given 10/06/2018 8:40 PM EDT 300 mg labetalol (NORMODYNE,TRANDATE) injection 20 mg Given 10/04/2018 5:28 PM EDT 20 mg 20 mg, Intravenous, ONCE, 1 dose, On Thu10/04/18 at 1745, Routine labetalol (NORMODYNE,TRANDATE) injection 40 mg Given 10/04/2018 6:07 PM EDT 40 mg 40 mg, Intravenous, ONCE, 1 dose, On Thu10/04/18 at 1815, Routine labetalol (NORMODYNE,TRANDATE) injection 40 mg Given 10/06/2018 6:35 AM EDT 40 mg 40 mg, Intravenous, ONCE, 1 dose, On Thu10/06/18 at 0630, Routine lactated Ringers 1,000 mL IV bolus New Bag 10/03/2018 12:11 PM EDT 100 mL/hr at 100 mL/hr, Intravenous, ONCE, 1 dose, On Thu10/03/18 at 1230 lactated Ringers 500 mL IV bolus New Bag 10/02/2018 4:33 PM EDT 1000 mL/hr at 1,000 mL/hr, Intravenous, ONCE, 1 dose, On Thu10/02/18 at 1622 lactated ringers infusion New Bag 10/02/2018 9:17 PM EDT 500 mLs 100 mL/hr 500 mL, at 100 mL/hr, Intravenous, CONTINUOUS, Starting on Thu10/02/18 at 2115, Until Thu10/03/18 at 0341 levothyroxine (SYNTHROID) tablet 25 mcg Given 10/07/2018 8:32 AM EDT 25 mcg 25 mcg, Oral, DAILY, First dose on Thu19 at 0900, Until Discontinued, Routine Given 10/06/2018 8:33 AM EDT 25 mcg Given 10/05/2018 9:49 AM EDT 25 mcg niCARdipine 0.2 mg/mL New Bag 10/04/2018 11:15 PM EDT 2.5 mg/hr 1 2.5 mL/hr (standard Adult and Pedi greater than 20 kg) infusion 0-15 mg/hr (0-75 mL/hr), Intravenous, CONTINUOUS, Starting on 10/04/18 at 2330, Until Thu10/05/18 at 1357, Titrate to SBP greater than 140 and less than 180 mmHg. Start at 5 mg/hour, titrate to maintain target SBP, adjust infusion rate by 2.5 mg/hour every 5 minutes to a maximum of 15 mg/hour. Rotate IV site every 12 hours, Routine NIFEdipine (ADALAT CC) CR tablet 30 mg Given 10/03/2018 9:12 PM EDT 30 mg 30 mg, Oral, NIGHTLY, First dose on [place] 10/03/18 at 2100, Until Discontinued, DO NOT CRUSH OR OPEN Hold for SBP<110, Routine NIFEdipine (ADALAT CC) CR tablet 60 mg Given 10/04/2018 9:14 PM EDT 60 mg 60 mg, Oral, ONCE, 1 dose, On 10/04/18 at 2130, DO NOT CRUSH OR OPEN, Routine NIFEdipine (PROCARDIA) capsule 20 mg Given 10/02/2018 9:38 PM EDT 20 mg 20 mg, Oral, NIGHTLY, First dose on [facility] 10/02/18 at 2115, Until Discontinued, Hold for SBP<100, Routine, Is NIFEdipine being used for tocolytic in labor? No polyethylene glycol (MIRALAX) packet 17 g Given 10/07/2018 8:35 AM EDT 17 g 17 g, Oral, DAILY, First dose on [place] 10/07/18 at 0900, Until Discontinued, Routine senna-docusate (PERICOLACE) 8.6-50 mg pe r tablet 2 tablet 2 tablet, Oral, DAILY PRN, Starting on T hu 10/07/18 at 0818, Until [place] 10/07/18 at 1903, Constipation, Routine sodium chloride 0.9 % flush 5 mL Given 10/07/2018 8:32 AM EDT 5 mLs 5 mL, Intravenous, 2 TIMES DAILY, First dose on 10/02/18 at 2115, Until Discontinued, Routine Given 10/06/2018 8:39 PM EDT 5 mLs Given 10/06/2018 8:34 AM EDT 5 mLs sodium chloride 0.9% 1,000 mL Rate/Dose Verify 10/04/2018 5:33 PM E DT 125 mL/hr IV bolus at 125 mL/hr, Intravenous, ONCE, 1 dose, On 10/04/18 at 1215 New Bag 10/04/2018 1:26 PM EDT 125 mL/hr sodium chloride 0.9% infusion New Bag 10/06/2018 7:00 PM EDT 100 mL/hr 100 mL/hr 100 mL/hr, Intravenous, CONTINUOUS, Starting on Thu10/06/18 at 0815, Until Thu10/07/18 at 0814 Rate/Dose Change 10/06/2018 8:53 AM EDT 100 mL/hr 100 mL/hr New Bag 10/06/2018 8:34 AM EDT 75 mL/hr 75 mL/hr sodium chloride 0.9% infusion New Bag 10/07/2018 9:06 AM EDT 100 mL/hr 100 mL/hr 100 mL/hr, Intravenous, CONTINUOUS, Starting on Thu10/07/18 at 0915, Until Thu10/07/18 at 1903 documented in this encounter Active and Recently Administered Medications Times are shown in EDT. Scheduled Medication Order 10/05/2018 10/06/2018 10/07/2018 amLODIPine (NORVASC) tablet 10 mg (CANCELED) 1417 (Giv en - Provider: Carlos A Pérez, LAWRENCE) 0833 (Given - Provider: Corwin Hendrickson, RN) 10 mg, Oral, DAILY, First dose on 03/15 at 1400, Until Discontinued, Routine amLODIPine (NORVASC) tablet 10 mg 1647 (Given - Provider: Corwin Hendrickson, RN) 10 mg, Oral, EVERY EVENING, First dose o n Thu10/06/18 at 1700, Until Discontinued, Routine aspirin EC tablet 81 mg 0950 (Given - Provider: Carlos A Pérez RN) 0834 (Given - Provider: Corwin Hendrickson, RN) 0830 (Given - Provider: Krish Guidry) 81 mg, Oral, DAILY, First dose on 10/03/18 at 0900, Until Discontinued, Routine atorvastatin (LIPITOR) tablet 20 mg 2040 (Given - Provider: Eneida Ag RN) 20 mg, Oral, EVERY EVENING, First dose o n 10/06/18 at 2015, Until Discontinued, Routine calcium carbonate (Tums) chewable tablet 500 mg (COMPLETED) 1647 (Given - Provider: Corwin Hendrickson RN) 500 mg, Oral, ONCE, 1 dose, 10/06/18 at 1630, Routine gabapentin (NEURONTIN) capsule 200 mg 0950 (Given - Pr ovider: Carlos A Pérez RN)1417 (Given - Provider: Carlos A Pérez RN)2013 (Given - Provider: Jeana Birmingham RN) 0833 (Given - Provider: Krish Guidry)1530 (Given - Provider: Corwin Hendrickson RN)2040 (Given - Provider: Eneida Ag RN) 0830 (Given - Provider: Corwin Hendrickson RN)1457 (Given - Provider: Corwin Hendrickson RN) 200 mg, Oral, 3 TIMES DAILY, First dose on 10/02/18 at 2115, Until Discontinued, Routine heparin (Porcine) subcutaneous injection 5,000 Units 0 700 (Given - Provider: Jeana Birmingham RN)1417 (Given - Provider: Carlos A Pérez RN)2128 (Given - Provider: Jeana Birmingham RN) 0607 (Given - Provider: Jeana eller RN)1340 (Given - Provider: Corwin Hendrickson RN)2220 (Given - Provider: Eneida Ag RN) 0610 (Given - Provider: Krish Alba)1457 (Not Given - Provider: Corwin Hendrickson RN - Reason: Patient/family refused) 5,000 Units, Subcutaneous, EVERY 8 HOURS SCHEDULED, First dose on 10/02/18 at 2200, Until Discontinued, Routine hydrALAZINE (APRESOLINE) injection 15 mg (COMPLETED) 1834 (Given - Provider: Corwin Hendrickson RN) 15 mg, Intravenous, ONCE, 1 dose, Thu10/06/18 at 1845 isosorbide mononitrate (IMDUR) CR tablet 30 mg (COMPLE VALERIANO) 1630 (Given - Provider: Carlos A Pérez RN) 30 mg, Oral, ONCE, 1 dose, Thu10/05/18 a t 1630, DO NOT CRUSH OR OPEN, Routine isosorbide mononitrate (IMDUR) CR tablet 30 mg (COMPLE VALERIANO) 1828 (Given - Provider: Carlos A Pérez RN) 30 mg, Oral, ONCE, 1 dose, Thu10/05/18 a t 1815, DO NOT CRUSH OR OPEN, Routine isosorbide mononitrate (IMDUR) CR tablet 30 mg (COMPLETED) 0450 (Given - Provider: Jeana Birmingham RN) 30 mg, Oral, ONCE, 1 dose, Thu10/06/18 a t 0500, DO NOT CRUSH OR OPEN, Routine isosorbide mononitrate (IMDUR) CR tablet 90 mg 1135 (Given - Provider: Corwin Hendrickson RN) 1114 (Given - Provider: Krish Guidry) 90 mg, Oral, DAILY AT NOON, First dose o n Thu10/06/18 at 1200, Until Discontinued, DO NOT CRUSH OR OPEN, Routine labetalol (NORMODYNE) tablet 100 mg (COMPLETED) 1134 (Given - Provider: Corwin Hendrickson RN) 100 mg, Oral, ONCE, 1 dose, Thu10/06/18 at 1045, Routine labetalol (NORMODYNE) tablet 200 mg (CANCELED) 0948 (Amanda hayesen - Provider: Carlos A Pérez, LAWRENCE)2013 (Given - Provider: Jeana Birmingham, LAWRENCE) 0832 (Given - Provider: Corwin Hendrickson RN) 200 mg, Oral, 2 TIMES DAILY, First dose on Thu10/04/18 at 1930, Until Discontinued, Please hold for SBP<110., STAT labetalol (NORMODYNE) tablet 300 mg 2039 (Given - Provider: Eneida Ag RN) 0831 (Given - Provider: Corwin Hendrickson RN) 300 mg, Oral, 2 TIMES DAILY, First dose on Thu19 at 2100, Until Discontinued, Please hold for SBP<110., STAT labetalol (NORMODYNE,TRANDATE) injection 40 mg (COMPLETED) 634 (Given - Provider: Jeana Birmingham, LAWRENCE) 40 mg, Intravenous, ONCE, 1 dose, 10/06/18 at 0630, Routine levothyroxine (SYNTHROID) tablet 25 mcg 0949 (Given - Provider: Carlos A Pérez RN) 0833 (Given - Provider: Corwin Hendrickson RN) 0832 (Given - Provider: Corwin Hendrickson, RN) 25 mcg, Oral, DAILY, First dose on Sun at 0900, Until Discontinued, Routine polyethylene glycol (MIRALAX) packet 17 g 834 (Given - Provider: Corwin Hendrickson, LAWRENCE) 17 g, Oral, DAILY, First dose on Cinthia 09/25 07/13 at 0900, Until Discontinued, Routine sodium chloride 0.9 % flush 5 mL 0951 (Given - Provide r: Carlos A Pérez RN)2013 (Given - Provider: Jeana Birmingham RN) 0834 (Given - Provider: Corwin Hendrickson, LAWRENCE)2038 (Given - Provider: Eneida Ag RN) 0832 (Given - Provider: Corwin Hendrickson, LAWRENCE) 5 mL, Intravenous, 2 TIMES DAILY, First dose on 10/02/18 at 2115, Until Discontinued, Routine Continuous Medication Order 10/05/2018 10/06/2018 10/07/2018 sodium chloride 0.9% infusion 0834 (New Bag - Provider: Corwin Hendrickson RN)0853 (Rate/Dose Change - Provider: Corwin Hendrickson, RN)1900 (New Bag - Provider: Corwin Hendrickson, RN) 0800 (Stopped - Provider: Corwin Hendrickson, RN) 100 mL/hr, at 100 mL/hr, Intravenous, CO NTINUOUS, Starting 10/06/18 at 0815, Until Cinthia 10/07/18 at 0814 sodium chloride 0.9% infusion 09 06 (New Bag - Provider: Corwin Hendrickson, RN) 100 mL/hr, at 100 mL/hr, Intravenous, CO NTINUOUS, Starting Cinthia 10/07/18 at 0915, Until Cinthia 10/07/18 at 1903 PRN Medication Order 10/05/2018 10/06/2018 10/07/2018 lidocaine (XYLOCAINE) 10 mg/mL (1 %) injection 3 mg 3 mg (0.3 mL), Subcutaneous, ONCE PRN, 1 dose, Starting 10/02/18 at 2054, Until Cinthia 10/07/18 at 1903, for discomfort with PIV insertion, Routine senna-docusate (PERICOLACE) 8.6-50 mg per tablet 2 tablet 2 tablet, Oral, DAILY PRN, Starting Cinthia 10/07/18 at 0818, Until Cinthia 10/07/18 at 1903, Constipation, Routine sodium chloride 0.9 % flush 5-20 mL 5-20 mL, Intravenous, EVERY 1 MIN PRN, S tarting 10/02/18 at 2054, Until Cinthia 10/07/18 at 1903, flush, Flush pertains to all indwelling lines. Flush per protocol found in the job aid using the link provided on this medication record., Routine documented in this encounter Care Teams Kennel Supervisor Relationship Specialty Start Date End Date Sanjuanita Lee MD PCP - General 03/05/13 12/23/21 [address] [place] [address] documented as of this encounter
--- OUTSIDE RECORDS SUMMARY | 2022-02-22 23:36 | XMS_ITS | Encounter Summary ---
:1950 Author Organization [facility] [place] [address] Care Team Providers Name Role Phone Sanjuanita Lee MD Primary Care Provider Encounter Details Date Type Department Care Team Description 09/07/2018 Orders Only [facility] Unique Bravo MD [facility] dianelys [place] [address] [place] [address] [phone] (Wo rk) Social History Tobacco Use Types [...] Associated Diagnosis Comme nts RENAL ARTERY Routine 09/07/2018 8:39 AM Results f or this DUPLEX, UNIL EDT procedure are i n the results section. documented in this encounter Results Renal Artery Duplex, Unil (09/07/2018 8:39 AM EDT) Component Value Ref Test Analysis Performed At [facility] Method Time Signature VB Text Department: Vascular Surgery Lab [facility] Report Patient: [id number] (CHARLENE HARMON) CPT: 30590 ICD10: I70.1 Referring Physician: UNIQUE BRAVO ?? 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 Renal Artery Proximal ? 163 ?19 ?? Interpretation: Right: Patent renal artery b ypass with normal Doppler waveforms and velocities. There is normal flow characteristics within the kidney. Comparison: ??No previous study in our vascular lab da tabase for comparison. Electronically Signed by: DOUGIE TAVERAS on 2018-09-09 10:22: 06 AM VB Text End of Report [facility] Report Specimen (Source) Anatomical Collection Method Collection Time Re ceived Time Location / / Volume Laterality 09/07/2018 8:39 AM EDT Unique Bravo MD VASCULAR ORDERABLES Performing Organization Address City/State/ZIP Code Phon e Number [facility] documented in this encounter Visit Diagnoses Not on filedocumented in this encounter Care Teams Lead Tinner Relationship Specialty Start Date End Date Sanjuanita Lee MD PCP - General 03/05/13 12/23/21 [address] [place] [address] documented as of this encounter
--- OUTSIDE RECORDS SUMMARY | 2022-02-22 23:36 | XMS_ITS | Encounter Summary ---
:1950 Author Organization [place] [address] Care Team Providers Name Role Phone Sanjuanita Lee MD Primary Care Provider Reason for Visit Auth/Cert Specialty Diagnoses / Procedures Referred By Contact Refer red To Contact Diagnoses Hypertensive urgency RENAL ARTERY STENOSIS Procedures EMERGENCY IPI Referral ID Status Reason Start Date Expiration Date Visits Requ ested Visits Authorized [id number] 1 1 Encounter Details Date Type Department Care Team Description 08/29/2018 - Hospital Encounter 4 [place] Alonzo Peters MD [facility] [address] [facility] [place] [id number] Renal artery stenosis; 09/14/2018 [facility] Ren Hoffmann MD [facility] [place] [address] Hypertensive urgency; [facility] Thom Munguia MD [facility] PULMONARY MEDICINE [place] [id number] 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; [facility] Wilman Randolph MD [facility] [place] [address] Unique Moody MD [facility] VASCULAR SURGERY [place] [id number] [place] [address] Social History Tobacco Use Types [...] Sign Reading Time Taken Comments Blood Pressure 154/80 09/14/2018 9:09 AM EDT Pulse 74 09/13/2018 4:26 AM EDT Temperature 36.4 ??C (97.5 ??F) 09/14/2018 7:30 AM EDT Respiratory Rate 18 09/14/2018 7:30 AM EDT Oxygen Saturation 96% 09/14/2018 7:30 AM EDT Inhaled Oxygen Concentration - - Weight 40.6 kg (89 lb 8 oz) 09/14/2018 5:00 AM EDT Height 154.9 cm (5' 0.98) 09/07/2018 6:00 AM EDT Body Mass Index 16.92 09/07/2018 6:00 AM EDT documented in this encounter Discharge Summaries Tess Duarte MD - 09/14/2018 3:02 PM EDT Discharge Summary Patient Name: Pretty Harmon Patient Age: 67 y.o. Language: Malian Race: White Ethnicity: Not nor Admit date: 08/29/2018 Discharge date and time: 09/14/2018 Attending Physician: Unique Moody MD Discharge Physician: Unique Moody MD Discharge Diagnoses (Hospital Problems) and Secondary Diagnoses (Chronic Problems): Active Hospital Problems Diagnosis ??? Hypertensive urgency Resolved Hospital Problems No resolved problems to display. Active Non-Hospital Problems Diagnosis ??? Renal artery stenosis ??? Abdominal aortic aneurysm (AAA) without rupture ??? Acute hepatitis ??? Viral hepatitis B acute Operations/Major Procedures: 09/07/2018: Right external iliac to right renal artery bypass with reversed right greater saphenous vein History of Presentation: (taken from H&P written by Dr. 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 Nitroglycerin drip was ineffective and nicardipine was started. Initially required BIPAP. Off since 5 am.Was placed on nitro drip originally and admitted to ICU. Nitroglycerin was Unable to wean nicardipine and transferred here for consideration of vascular intervention of bilateral renal artery stenosis. Admitted elsewhere in Mar 2018 (reports in scanned docs) for hypertensive urgency, demand ischemia and acute systolic/diastolic CHF. EF on echo 04/21 EF 35-40%, diffuse hypokinesis, diastolic dysfunction, Pulmonary hypertension, and moderate MR. Was subsequently admitted on in May, June/July and this is 4th hospitalization. Feels fine in between episodes. Develops symptoms with sudden onset. Pt notes BP tends to be in 130s ,checks multiple times a day. No drug use, no OTC or herbal medications. Takes her medications faithfully. Had been seeing renal andvascular re: YING. Renal had recommended trial of medications previously though she has had ongoing ho spitalizations (she was supposed to followup tomorrow) No chest pain or pressure unless in one of the episodes. Of note she walks a mile a day M-F at her work. Does not feel limited by breathing except during these episodes. Per her and reports hadneg stress test on 08/25 On lasix 20 mg qod, carvedilol 37.5 mg po bid and amlodipine 10 mg for BP control. Hospital Course: The patient was admitted to the ISCU where she was maintained on a nicardipine gtt in anticipation of going for angiography. She was diuresed and creatinine maintained at baseline. Shewas taken to for angiography on 09/01/18 and vascular was unable to cannulate the R renal artery; no intervention on the L was undertaken since this was found to be patent. The patient developed worsening renal failure which was most likely multifactorial d/t to YING, earlyCIN, and possible low perfusion pressure d/t to BP goals on nicardipine gtt that may have been too low for the patient's needs. Cardiorenal syndrome was not felt to be contributing at the time. The patient indicated that she would not want to be placed on dialysis in the past and during this hospitalization. Renal was consulted on 09/02 for additional assistance since the patient was deemed to be at high risk for worsening renal failure d/t ANTHONY and might potentially need HD. IVF were started in full recognition that the patient had hypoxia that might worsen. However, she indicated a strong desire not to have dialysis so IVF were the only treatment available to treat evolving ANTHONY. The patient developed increased oxygen requirements 09/02-09/03 and was transferred to the ICU for highflow/BIPAP. Vascular surgery consulted and decision made to move to surgery: Right flank incision, trans abdominal exposure. Bypass performed from right external iliac to right renal artery. Reversed right greatersaphenous used for conduit. End to side on iliac, end to end on renal, [place] right renal artery origin ligated. Completion duplex performed, showed PSV 80 in bypass w EDV ~20 (PSV 175 at renal anastomosis), with good renal artery outflow. Palpable right DP and PT pulses at case end. Pt hemodynamically stable throughout case, on low dose nicardipine at case beginning, weaned off by case end, and madeurine throughout. Right renal clamp time 26 min. Pt re-admitted to the floor (ISCU) for postop care and monitoring. Pt's postop course went well with good PO Intake, adequate output following caballero removal and pain relieved with PO meds at time of d/c. Pt's O2 requirements decreased and she is able to tolerated RA with adequate SpO2 at time of d/c. She ambulates with minimal assist, worked with PT who recommend home with VNA. Pt's left sided incisions remain c/d/i. Pt is medically cleared for d/c to home and will follow-up in 2 weeks for wound checks. Vital Signs at Discharge: BP: 154/80, Heart Rate: 74, Temp: 36.4 ??C (97.5 ??F), Resp: 18, BMI (Calculated): 17.71 Height: 154.9 cm (5' 0.98) (09/07/18 0600) Weight: 40.6 kg (89 lb 8 oz) (09/14/18 0500) Physical exam on day of discharge: General: NAD, resting comfortably, thin HEENT: PERRL, anicteric sclerae, right neck dressing from IJ removal c/d/i CVS: Regular rate, no murmurs rubs or gallops Pulm: +wheeze bilaterally Abd: soft, non tender, mildly distended, transverse abdominal incision clean and dry without erythema, ecchymosis or edema. Right groin incision c/d/i with alex Neuro: CN 2-12 grossly intact, nonfocal, moving all extremities. Vascular Exam: palpable DP and PT pulses bilaterally. Important Studies and Lab Data: CBC Lab Results Component Value Date WBC 10.6 (H) 09/14/2018 Hemoglobin 11.9 09/14/2018 Hematocrit 35.6 (L) 09/14/2018 Platelets 266 09/14/2018 Studies: 09/10/2018 Bypass duplex Interpretation: ?? RIGHT: Exam limited by overlying bowel gas. Bypass not visualized. However, there are normal Dopplerwaveforms in the kidney and distal renal artery. ?? Discharge Conditions/Prognosis: Good Discharge to: Home with VNA Updated Allergies/ADRs: Allergies Allergen Reactions ??? Lisinopril Rise in creatinine Immunizations Given this Hospitalization: Immunization History Administered Date(s) Administered ??? Hepatitis A Vaccine, Adult 04/07/2014, 12/08/2014, 05/18/2015 ??? Pneumococcal Polyvalent 23 05/18/2015 Discharge Medications: Your Medications New Medications Dose Details acetaminophen 500 mg Tab Commonly known as: TYLENOL Take 1 tablet by mouth every 6 hours. 500 mg Quantity: 30 tablet Refills: 1 labetalol 200 mg Tab Commonly known as: NORMODYNE Take 2 tablets by mouth 2 times daily. 400 mg Quantity: 50 tablet Refills: 0 NIFEdipine 30 mg Tr24 Commonly known as: PROCARDIA XL Take 1 tablet by mouth 2 times daily. 30 mg Quantity: 50 tablet Refills: 0 oxyCODONE 5 mg Tab Commonly known as: ROXICODONE Take 1 tablet by mouth every 4 hours as needed for Pain. 5 mg Quantity: 4 tablet Refills: 0 Continued medications, unchanged Dose Details aspirin 81 mg Tbec Take 81 mg by mouth daily. 81 mg Refills: 0 gabapentin 800 mg Tab Commonly known as: NEURONTIN Take 1 tablet by mouth nightly. 800 mg Quantity: 30 tablet Refills: 3 isosorbide mononitrate 30 mg Tablet sr Commonly known as: IMDUR Take 1 tablet by mouth daily. 30 mg Quantity: 30 tablet Refills: 12 levothyroxine 25 mcg Tab Commonly known as: SYNTHROID Take 25 mcg by mouth daily. 25 mcg Refills: 0 Vitamin D 1,000 unit Tab Take 1,000 Units by mouth. Generic drug: cholecalciferol (Vitamin D3) 1000 Units Refills: 0 STOPPED Medications amLODIPine 10 mg Tab Commonly known as: NORVASC atorvastatin 40 mg Tab Commonly known as: LIPITOR carvedilol 25 mg Tab Commonly known as: COREG furosemide 20 mg Tab Commonly known as: LASIX potassium chloride 10 mEq Tbsr Commonly known as: K-DUR/KLOR-CON Smoking Status at Discharge: Social History Tobacco Use Smoking Status Former Smoker ??? Packs/day: 0.50 Smokeless Tobacco Former User ??? Quit date: 07/14/2012 Tobacco Comment smoked for ~45 years up to 1 ppd at max, quit ~2000 Follow-up Recommendations for Providers: Follow up in [address] Moody (vascular Surgery) and Dr. Kemp (nephrology). See VNA orders Instructions Given to Patient at Discharge: Patient Instructions You were admitted to [facility] and had a right iliac artery to renal (kidney) artery to improve blood flow to your kidney. This all went very well and your postoperative course was uncomplicated. Dr. Alvarez want you to be seen in approximately two weeks for a wound check and follow-up. This will be scheduled and sent to you in the mail. Please call our office at the number below if you don't receive this appointment in a week as your follow up is very important. Call your doctor if: Any abdominal or back pain, any issue of redness, swelling or separation of your incisions, any nausea or vomiting or any fever. Activity level: up as tolerated but take it easy for a week or so. Diet: regular Driving: ok in a week or so if driving before and you feel perfect. NONE if requiring any pain medication Shower/Bath: showering is fine Wound Care: wash in a shower with soap and water, pat dry. Please call with any new or worsening shortness of breath or difficulty breathing. For any problems or questions please call [phone] KIMANI Ying, java technical manager Nurse Clinician For issues on weeknights after 5pm and weekends please call [phone] and ask for the Vascular Fellow oracle database consultant. General Instructions None Future Appointments and Orders Future Appointments and Orders Future Appointments Provider Department Dept Phone 09/23/2018 9:30 AM Unique Moody MD [facility] [place] Arrive at: Parts Counter Representative Area 3V [phone] Future Orders Complete By Expires Referral to Home Health - at DISCHARGE [[id number] CPT(R)] As directed Process Instructions: Scheduling Instructions: Comments: DOCUMENTATION FOR VNA SERVICES (INCLUDING THOSE PATIENTS WITH MEDICARE COVERAGE REQUIRING HOME VNA SERVICES AND/OR HOSPICE SERVICES) PATIENT'S LOCATION: Pretty Harmon [address] [place] [phone] (home) Cell: No relevant phone numbers on file. 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 The encounter with the patient was in whole, or in part, for the following medical condition, which is the primary reason for home health care services: Pt is post-operative for: 09/07 R iliac artery to R renal artery bypass. In discussion with the provider, it is certified that, based on their findings, the following services are medically necessary for home health services. To provide the following care/treatments with the clinical findings supporting the need for servicesas follows: HOME CARE ORDERS: RN ORDERS: Assess wound or incision, Wound care as follows: Monitor transverse abdominal incision for signs of infection. Keep clean and dry with fresh gauze dressings and tape as needed. Monitor rightgroin incision as well. Assess vital signs, cardiopulmonary status, nutrition, hydration, elimination, meds effectiveness and management; reinforce education re health issues. Monitor for signs of flash pulmonary edema and monitor breathing and dyspnea.Call vascular surgery clinic if pt complaining of dyspnea HOME HEALTH CARE AGENCY: [facility] PHONE: [phone] FAX: [phone] Start of care: Within 24-48 hours of discharge. FOR MEDICARE ONLY: (please delete this section if not Medicare) In discussion with the attending physician, it is certified that the clinical findings support that this patient is homebound because absences from home require considerable and taxing effort due to: Need for wound care and assessment Unable to ambulate community surfaces or distances unassisted due to pain, LE weakness or decreased balance and risk for falls Restricted mobility due to LE strength and motion due to recent surgery Unsteady Gait, poor balance , requiring assistive devices and/or assistance of another Please note that any additional orders needs or changes will need to be obtained from this patient'sPCP: Sanjuanita Lee MD [address] [facility] [id number] All A agencies which cover the area of patient's residence have been reviewed, either verbally or in writing, and patient/family have chosen the home health care agency noted Questions: Agency name and contact information: [facility] Patient location post discharge: home What services are requested: Registered Nurse Speech Therapy Start date: 09/15/2018 Responsible MD post discharge contact info: PCP Discharge References/Attachments None documented in this encounter Discharge Instructions Patient Mally Barger RN - 09/10/2018 1:24 PM EDT You were admitted to [facility] and had a right iliac artery to renal (kidney) artery to improve blood flow to your kidney. This all went very well and your postoperative course was uncomplicated. Dr. Alvarez want you to be seen in approximately two weeks for a wound check and follow-up. This will be scheduled and sent to you in the mail. Please call our office at the number below if you don't receive this appointment in a week as your follow up is very important. Call your doctor if: Any abdominal or back pain, any issue of redness, swelling or separation of your incisions, any nausea or vomiting or any fever. Activity level: up as tolerated but take it easy for a week or so. Diet: regular Driving: ok in a week or so if driving before and you feel perfect. NONE if requiring any pain medication Shower/Bath: showering is fine Wound Care: wash in a shower with soap and water, pat dry. Please call with any new or worsening shortness of breath or difficulty breathing. For any problems or questions please call [phone] KIMANI Ying, java technical manager Nurse Clinician For issues on weeknights after 5pm and weekends please call [phone] and ask for the Vascular Fellow oracle database consultant. documented in this encounter Medications at Time of Discharge Medication Sig Dispensed Refills Start Date End Date acetaminophen (TYLENOL) Take 1 tablet by 30 tablet 1 2018 500 mg Tablet mouth every 6 hours. aspirin 81 mg Tablet, Take 81 mg by mouth 0 Delayed Release (E.C.) daily. isosorbide mononitrate Take 1 tablet by 30 tablet 12 019 10/07/2018 (IMDUR) 30 mg Tablet mouth daily. Sustained Release 24 hr gabapentin (NEURONTIN) 800 Take 1 tablet by 30 tablet 3 10/07/2018 mg Tablet mouth nightly. labetalol (NORMODYNE) 200 Take 2 tablets by 50 tablet 0 09/28/2018 mg Tablet mouth 2 times daily. NIFEdipine (PROCARDIA XL) Take 1 tablet by 50 tablet 0 08/2609/28/2018 30 mg Tablet Extended Rel mouth 2 times 24 hr daily. oxyCODONE (ROXICODONE) 5 Take 1 tablet by 4 tablet 0 09/1410/02/2018 mg Tablet mouth every 4 hours as needed for Pain. levothyroxine (SYNTHROID) Take 50 mcg by 0 01/20/2019 25 mcg Tablet mouth daily. cholecalciferol, Vitamin Take 1,000 Units by 0 10/02/2018 D3, (VITAMIN D) 1,000 unit mouth. Tablet documented as of this encounter Progress Notes Katy Sterling RN - 09/14/2018 3:33 PM EDT Patient Name: Pretty Harmon Patient Age: 67 y.o. Birthdate: 1950 Admit date: 08/29/2018 Attending Physician: Unique Moody MD Pt was discharged today at approximately 1500, she left with her . Discharge was delayed as she decided she would like to have VNA services shortly before leaving. Care management and the vascular team collaborated and services were secured. AVS was provided and explained, questions were encouraged and both parties expressed understanding of all information provided. Wilman Treadwell MD - 09/14/2018 10:36 AM EDT The patient was seen and examined with the nephrology fellow. Please see the nephrology fellow's note from today for details. I have reviewed the fellow's note including the exam, assessment and plan. My evaluation of the patient is as follows: Patient is seen and examined in her room. She is in good spirits. The patient is going to be discharged today. Her creatinine is stable currently. For discharge I would recommend 400 twice a day of labetalol and 30 Procardia XL twice a day. She can see Dr. More in follow-up in the next 2 to 3 weeks. Mahogany Tomas RN - 09/14/2018 10:29 AM EDT Pt is post-operative for: Surgeries this hospitalization: 09/07 R iliac artery to R renal artery bypass. Pt being discharge to home today. The patient and spouse Rodolfo have been provided a list of Home Health Agencies/DME vendors which serve their preferred geographic area. A letter describing our affiliations was reviewed with them and they were educated about their right to choose where referrals are placed. Patient requests referral to [facility] [employer]. PHONE: [phone] FAX: [phone]. Expected date of discharge: 09/14/2018. Referral routed to the Photonics Engineering Technician for matching with agency/vendor and to provide any required information. 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 S; Blood pressures are mildly elevated this morning ,denied any chest pian or sob .Vascular planningto discharge her today. PHYSICAL EXAM: Intake/Output Summary (Last 24 hours) at 09/14/2018 1018 Last data filed at 09/14/2018 0600 Gross per 24 hour Intake 860 ml Output 1650 ml Net -790 ml Last value Range last 24 hrs Temperature Temp: 36.4 ??C (97.5 ??F) Temp: [36.4 ??C (97.5 ??F)-37.3 ??C (99.1 ??F)] Heart Rate Heart Rate: 74 Heart Rate: -- Blood Pressure BP: 154/80 BP: (138-156)/(62-80) Respiratory Rate Resp: 18 Resp: [17-18] SpO2 SpO2: 96 % SpO2: [93 %-98 %] Appearance - Awake and alert. Pleasant, interactive. In NAD. Skin - Warm, dry. HEENT - No sclera icterus.: Chest -CTABL,no wheezing/creps/crackles Heart - S1 and S2. RRR. No MRG. Abd - Soft. Non-tender. Non-distended. Normal BS. Ext - Warm extremities. Rt lower abdominal wound and rt groin with sterile alex Neuro - Moving extremities without issues. 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) who had recurrent hospital admissions with sob and flash pulmonary edema in the setting of known renal artery stenosis with failed medical treatment .She did underwent angio this admission ,was found that she have complete occlusion of right renal artery and left renal artery is patent .Shewas transferred to ICU after procedure as her respiratory distress worsened required BIPAP support which improved with lasix .Functional scan which showed that right kidney is contributing 45% of totalkidney function .S/p renal artery bypass on 09/07 ,maintaining blood pressures on po medications withstable kidney fucntion. 1.Renal artery stenosis s/p extraanatomical bypass - Renal function stable vs improving with good UOP. - BP mildly higher side will go up on Labetalol to 400 BID and Procardia XL to 30 BID and will coordinate clinic follow up with Dr Kemp for further management. - Monitor Is and Os,Daily weight,avoid contrast studies or NSAID's. 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 - Daily weights,Low salt diet Will sign off . Please call with any questions.Discussed with Beba Evans MD Nephrology Fellow . #[id number] Tess Duarte MD - 09/13/2018 7:35 PM EDT Vascular surgery progress note Pretty Harmon is a 67 y.o. female with right renal artery occlusion who presents w flash pulm edema - several episodes over past 6 months. She is now 6 Days Post- Op s/p right iliac to right renal bypass. Surgeries this hospitalization: 09/07 R iliac artery to R renal artery bypass Subjective/Interval: rec'd lidoderm patches for pain overnight Continues to tolerate clear liquid, passing flatus Pt having some pain this morning near her incision sites O: Temp: [37 ??C (98.6 ??F)] Heart Rate: -- Resp: [18] BP: (140)/(62) SpO2: [93 %-97 %] Heart Rate from SpO2: [71 bpm-79 bpm] I/O last 3 completed shifts: In: 1118 [P.O.:1118] Out: 2501 [Urine:2500; Other:1] No intake/output data recorded. Physical Exam General: NAD, resting comfortably, thin HEENT: PERRL, anicteric sclerae, CVS: Regular rate, no murmurs rubs or gallops Pulm: +wheeze Abd: soft, non tender, ,mildly distended, transverse abdominal incision clean and dry without erythema, ecchymosis or edema. Right groin incision c/d/i with alex Neuro: CN 2-12 grossly intact, nonfocal, moving all extremities. Vascular Exam: Strong palp R femoral pulse Unable to palp L femoral pulse Lab Results Component Value Date WBC 8.1 09/13/2018 HGB 10.1 (L) 09/13/2018 HCT 29.8 (L) 09/13/2018 MCV 91.4 09/13/2018 PLATELET 237 09/13/2018 Lab Results Component Value Date CREATININE 1.73 (H) 09/13/2018 R GSV Duplex Right ?Diameter (mm) ?? GSV, Near SFJ ?6.5 ?? GSV, Proximal Thigh ?3.2 ?? GSV, Mid Thigh ? 3.2 ?? GSV, Distal Thigh ?3.2 ?? GSV, ??Knee ? 3.2 ?? GSV Prox Calf ?1.9 ?? GSV, Mid Calf ?2.0 ?? GSV, Distal Calf ? 1.2 ? AP Pretty Harmon is a 67 y.o. female w multiple admissions for flash pulm edema in setting of proximalocclusion of R renal artery. Unsuccessful last week in crossing R renal occlusion. Now 6 Days Post-Op from R iliac to R renal arterial bypass. Overall the patient is recovering well from surgery, but continues to have issues with hypertension.Appreciate nephrology recommendations. Blood pressure now well controled with PO antihypertensives -continue clears, plan to progress to low-sodium diet tomorrow if no abdominal pain - monitor blood pressure closely -continue with PO antihypertensives per nephrology recommendations (pt will be discharged home with them) -remove R IJ central line -PT -nursing should offer patient oxycodone 5mg q4h prn since she feels embarrassed asking for it herself - Floor status, full code Tess Prakashbrandonguy Pager: [phone] Kcaie Bills RN - 09/13/2018 6:06 PM EDT A&OX4. VSS and on RA. Lungs clear, HRR; murmur detected. +BS and voiding spontaneously. 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 Medial thigh incision with alex; CDI; MIRNA. Patient reports mildto moderate pain. Pain well managed with WILFRED Tylenol and PRN Oxycodone. OOB to bedside commode independently; SBA with RW in hallway. RLE +2 DP/PT, RLE +2 DP/+1 PT; patient denies numbness or tingling;wiggles toes; moves on bed. PERRLA. No neuro deficits noted. No hematomas noted. RN to continue to monitor, call carmona within reach. Please encourage PO intake with boosts and activity in hallway. Neena Morley RD - 09/13/2018 11:04 AM EDT Clinical Nutrition Follow Up Height: 60 Weight: 42.5 kg (admit wt: 47.4 kg) BMI: 18.1 UBW: 110#- per pt Weight Hx: Wt Readings from Last 3 Encounters: 09/13/18 42.3 kg (93 lb 4.1 oz) 07/19/18 47.6 kg (105 lb) 06/14/18 48.1 kg (106 lb) Significant Past Medical and Surgical Hx: Past Medical History: Diagnosis Date ??? AAA (abdominal aortic aneurysm) [id number] angiogram; 3.2 cm infrarenal ??? Constipation ??? Dyslipidemia ??? Hypertension ??? Insomnia ??? Peripheral vascular disease ??? Renal artery stenosis R; per 2009 angiogram Current Diet Order: regular Oral liquid Supplements: Boost Breeze TID Appetite/PO Intake:She states she normally only eats one large meal per day. Pertinent Medications and drips: aspirin, heparin, protonix, miralax, KCl, senna Pertinent Labs: Lab Results Component Value Date NA 139 09/13/2018 K 3.3 (L) 09/13/2018 CL 105 09/13/2018 CO2 20 (L) 09/13/2018 BUN 21 (H) 09/13/2018 CREATININE 1.73 (H) 09/13/2018 GLUCOSE 129 09/08/2018 GLUCFASTING 160 (H) 09/13/2018 CALCIUM 8.3 (L) 09/13/2018 ESTGFR 30 (L) 09/13/2018 Gastrointestinal (per RN flowsheet): Abdominal Exam: WNL LBM: 09/13 I/O: I/O last 3 completed shifts: In: 1533 [P.O.:978; I.V.:5; Other:190; NG/GT:360] Out: 2000 [Urine:2000; Other:1] Skin (per wound report): intact Estimation of Nutrition Needs: Total Energy Estimated Needs: 9103-9309 kcal Method for Estimating Needs: 25-30 kcal/kg ?? Estimated Protein Needs Total Protein Estimated Needs: 50g Method for Estimating Needs: 1.2 g/kg Assessment: Pt is 67 yo female admit with hypertensive emergency and acute on chronic diastolic HF. PMH sig for bilateral renal artery stenosis, AAA, and CKD (baseline CR 1.8-2). She is s/p renal artery bypass, POD 5. Diet advanced today to regular (clears over weekend). Pt asking for oatmeal and a popsicle. She has had little to no nutrition x 8 days, with 5.1kg wt loss since admission. ?? Recommendations: Check Mg, replete lytes prn Enc PO intake on regular diet Trial Boost Breeze TID ? Narayan cts Neena Morley RD, LD Pager [phone] Wilman Treadwell MD - 09/13/2018 10:20 AM EDT The patient was seen and examined with the nephrology fellow. Please see the nephrology fellow's note from today for details. I have reviewed the fellow's note including the exam, assessment and plan. My evaluation of the patient is as follows: Patient is seen and examined in room. She is in good spirits. Her blood pressure is in reasonable range on the current regimen. I would not aim to bring it much lower than 120 systolic given the new bypass graft and the risk of thrombosis. Otherwise her renal function is relatively stable. 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 S; Tolerating po ,blood pressures are well controlled on current regimen ,denied any sob or chest pain but have pain at the surgical sight. PHYSICAL EXAM: Intake/Output Summary (Last 24 hours) at 09/13/2018 0918 Last data filed at 09/13/2018 0837 Gross per 24 hour Intake 118 ml Output 1251 ml Net -1133 ml Last value Range last 24 hrs Temperature Temp: 36.9 ??C (98.4 ??F) Temp: [36.5 ??C (97.7 ??F)-37.2 ??C (99 ??F)] Heart Rate Heart Rate: 74 Heart Rate: [71-81] Blood Pressure BP: 144/60 BP: (112-144)/(51-64) Respiratory Rate Resp: 16 Resp: [13-20] SpO2 SpO2: 97 % SpO2: [90 %-98 %] Appearance - Awake and alert. Pleasant, interactive. In NAD. Skin - Warm, dry. HEENT - No sclera icterus.: Chest -CTABL,no wheezing/creps/crackles Heart - S1 and S2. RRR. No MRG. Abd - Soft. Non-tender. Non-distended. Normal BS. Ext - Warm extremities. Rt lower abdominal wound and rt groin with sterile alex Neuro - Moving extremities without issues. Labs: CBC: Recent Labs 09/13/18 0550 09/12/18 0110 09/11/18 0730 WBC 8.1 8.8 11.8* HGB 10.1* 9.7* 10.3* PLATELET 237 228 231 Chemistry: Recent Labs 09/13/18 0550 09/12/18 0800 09/12/18 0110 09/11/18 0730 09/08/18 1500 09/07/18 2035 09/03/18 0655 NA 139 -- 139 -- 141 < > 137 < > 137 < > 131* K 3.3* 4.2 3.6 < > 3.1* < > 4.3 < > 4.5 < > 5.2* CL 105 -- 105 -- 106 < > 97* < > 96* < > 99 CO2 20* -- 22 -- 22 < > 23 < > 25 < > 19* BUN 21* -- 25* -- 32* < > 45* < > 40* < > 50* CREATININE 1.73* -- 1.59* -- 1.61* < > 2.67* < > 2.85* < > 2.80* GLUCOSE -- -- -- -- -- -- 129 -- 199 -- 140 < > = values in this interval not displayed. Recent Labs 09/13/18 0550 09/12/18 0110 09/11/18 0730 09/03/18 0035 09/02/18 0329 08/31/18 0015 CALCIUM 8.3* 8.4* 8.4* < > 8.2* 8.5 < > 7.9* MAGNESIUM 0.65* 0.68* 0.83 < > 0.95 0.97 < > 0.75 PHOS -- -- -- -- 4.4 6.2* -- 3.5 < > = values in this interval not displayed. 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) who had recurrent hospital admissions with sob and flash pulmonary edema in the setting of known renal artery stenosis with failed medical treatment .She did underwent angio this admission ,was found that she have complete occlusion of right renal artery and left renal artery is patent .Shewas transferred to ICU after procedure as her respiratory distress worsened required BIPAP support which improved with lasix .Functional scan which showed that right kidney is contributing 45% of totalkidney function .S/p renal artery bypass on 09/07 ,maintaining blood pressures on po medications withstable kidney fucntion. 1.Renal artery stenosis s/p extraanatomical bypass - Renal function stable vs improving with good UOP. - BP controlled lupe PO BP medications - labetalol 200 mg PO BID,Procardia XL 30 mg BID .Recommend to continue her current regimen and will adjust meds as needed - Monitor Is and Os,Daily weight,avoid contrast studies or NSAID's. 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 - Daily weights,Low salt diet We will continue to follow. Please call with any questions.Discussed with Beba Evans MD Nephrology Fellow . #[id number] Mandy Foster RN - 09/12/2018 5:38 PM EDT 09/12/18 1728 Safety Safety WDL WDL Visual Checks Awake Safety Factors call light in reach Safety Interventions Safety Promotion/Fall Prevention safety round/check completed All Alarms alarm(s) activated and audible Consulting Analyst Protection tubing secured Medication Review/Management medications reviewed Environmental Safety Modification clutter free environment maintained Infection Prevention environmental surveillance performed Isolation Precautions standard precautions maintained Type of Monitor Shane Chang arrived to the floor a/o with no complaints. She has reg HR, clear lungs, tingling bowel sounds, right transverse incision and right inner thigh incision stapled well approximated and open to air Bruising present. She is having a possible, oriented to her room, call carmona and dietero initiated. Nuha Michael MD - 09/12/2018 10:36 AM EDT NEPHROLOGY PROGRESS NOTE PATIENT: Pretty Harmon : 1950 REASON FOR CONSULTATION: GAEL in the setting of hypertensive urgency and contrast exposure in attempted intervention for severe bilateral renal artery stenosis (70%) ID:: This is a 67 year old woman with HFpEF (EF 54% on 08/2018 TTE), bilateral renal artery stenosis (>60% occlusion bilaterally in 01/2018, progression of R stenosis to occlusion and persistent L stenosis on most recent duplex in 08/2018), 3.7 cm AAA, acute HBV, HTN, HLD, former tobacco use (45 years up to 1ppd at max, quit 10 years ago), and 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 Underwent angiogram on 09/01 but was unable to intervene on occluded R stenosis and ultimately found L side darien more patent than expected and did not intervene and was transferred to ICU as she became more sobwith worsening pulmonary edema. s: Nicardipine drip stopped yesterday.BP controlled with PO meds.O2 requirements improving and is saturating well on 1LNC.No CP/SOB/swelling in the legs.Had U.out put about 2.4L yesterday with down trending creatinine.No acute events overnight PHYSICAL EXAM: Intake/Output Summary (Last 24 hours) at 09/12/2018 1136 Last data filed at 09/12/2018 0800 Gross per 24 hour Intake 2674 ml Output 2225 ml Net 449 ml Last value Range last 24 hrs Temperature Temp: 37.5 ??C (99.5 ??F) Temp: [36.9 ??C (98.4 ??F)-37.6 ??C (99.7 ??F)] Heart Rate Heart Rate: 89 Heart Rate: [68-89] Blood Pressure BP: 129/60 BP: (119-155)/(50-67) Respiratory Rate Resp: 18 Resp: [12-26] SpO2 SpO2: 92 % SpO2: [89 %-93 %] Appearance - Awake and alert. Pleasant, interactive. In NAD. Skin - Warm, dry. HEENT - No sclera icterus.: Chest -CTABL,no wheezing/creps/crackles Heart - S1 and S2. RRR. No MRG. Abd - Soft. Non-tender. Non-distended. Normal BS. Ext - Warm extremities. Rt lower extremity was in crepe bandage and abdominal wound was packed in sterile dressing. Neuro - Moving extremities without issues. Labs: CBC: Recent Labs 09/12/18 0110 09/11/18 0730 09/10/18 0245 WBC 8.8 11.8* 14.5* HGB 9.7* 10.3* 11.2* PLATELET 228 231 244 Chemistry: Recent Labs 09/12/18 0800 09/12/18 0110 09/11/18 1820 09/11/18 0730 09/10/18 0245 09/08/18 1500 09/07/18203409/03/18 0655 NA -- 139 -- 141 145 < > 137 < > 137 < > 131* K 4.2 3.6 3.5 3.1* 3.6 < > 4.3 < > 4.5 < > 5.2* CL -- 105 -- 106 103 < > 97* < > 96* < > 99 CO2 -- 22 -- 22 25 < > 23 < > 25 < > 19* BUN -- 25* -- 32* 44* < > 45* < > 40* < > 50* CREATININE -- 1.59* -- 1.61* 2.22* < > 2.67* < > 2.85* < > 2.80* GLUCOSE -- -- -- -- -- -- 129 -- 199 -- 140 < > = values in this interval not displayed. Recent Labs 09/12/18 0110 09/11/18 0730 09/10/18 0245 09/03/18 0035 09/02/18 0329 08/31/18 0015 CALCIUM 8.4* 8.4* 8.8 < > 8.2* 8.5 < > 7.9* MAGNESIUM 0.68* 0.83 0.90 < > 0.95 0.97 < > 0.75 PHOS -- -- -- -- 4.4 6.2* -- 3.5 < > = values in this interval not displayed. 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) who had recurrent hospital admissions with sob and flash pulmonary edema in the setting of known renal artery stenosis with failed medical treatment .She did underwent angio this admission ,was found that she have complete occlusion of right renal artery and left renal artery is patent .Shewas transferred to ICU after procedure as her respiratory distress worsened required BIPAP support which improved with lasix .Functional scan which showed that right kidney is contributing 45% of totalkidney function .S/p renal artery bypass on 09/07.transferred to step down unit post procedure and isimproving clinically and needing nicardipine drip for BP control 1.Renal artery stenosis s/p extraanatomical bypass - Renal function is improving with good UOP. - BP controlled lpue PO BP medications with labetalol 200 mg PO BID,Procardia XL 30 mg BID and titrted off nicardipine.Recommend to continue he current regimen and will adjust meds as needed - Monitor Is and Os,Daily weight,avoid contrast studies or NSAID's. -No acute electrolyte abnormalities.no overt fluid overload,uremic sx needing OPERATING ROOM SURGICAL TECHNICIAN. -Daily weights -Low salt diet We will continue to follow. Please call with any questions.Discussed with Dr.Remillard Nuha Young Nephrology Fellow . #[id number] Wilman Treadwell MD - 09/12/2018 8:54 AM EDT The patient was seen and examined with the nephrology fellow. Please see the nephrology fellow's note from today for details. I have reviewed the fellow's note including the exam, assessment and plan. My evaluation of the patient is as follows: Patient is seen and examined in the room. She is in good spirits. Creatinine continues to improve. Blood pressure is in good range at 125/69 with a heart rate of 85. Current regimen seems to be good. We will continue to follow Thom Velasquez - 09/12/2018 7:26 AM EDT Vascular surgery consult service Pretty Harmon is a 67 y.o. female with right renal artery occlusion who presents w flash pulm edema - several episodes over past 6 months. Int: Passing flatus, NGT removed Tolerated clear liquids but complaining of some nausea overnight, continues to pass flatus but Feelsmildly distended BP now well controlled on PO antihypertensives O: Temp: [37.3 ??C (99.1 ??F)-37.6 ??C (99.7 ??F)] Heart Rate: [72-85] Resp: [12-26] BP: (119-131)/(50-55) SpO2: [89 %-92 %] Heart Rate from SpO2: [72 bpm-85 bpm] I/O last 3 completed shifts: In: 6419.4 [P.O.:1985; I.V.:3644.4; Other:190; NG/GT:360; IV Piggyback:240] Out: 3375 [Urine:3375] No intake/output data recorded. Physical Exam General: NAD, resting comfortably, thin HEENT: PERRL, anicteric sclerae, CVS: Regular rate, no murmurs rubs or gallops Pulm: +wheeze Abd: soft, non tender, ,mildly distended, transverse abdominal incision clean and dry without erythema, ecchymosis or edema Ext: warm Neuro: CN 2-12 grossly intact, nonfocal, moving all extremities. Vascular Exam: Strong palp R femoral Unable to palp L femoral Lab Results Component Value Date WBC 8.8 09/12/2018 HGB 9.7 (L) 09/12/2018 HCT 29.3 (L) 09/12/2018 MCV 90.7 09/12/2018 PLATELET 228 09/12/2018 Lab Results Component Value Date CREATININE 1.59 (H) 09/12/2018 R GSV Duplex Right ?Diameter (mm) ?? GSV, Near SFJ ?6.5 ?? GSV, Proximal Thigh ?3.2 ?? GSV, Mid Thigh ? 3.2 ?? GSV, Distal Thigh ?3.2 ?? GSV, ??Knee ? 3.2 ?? GSV Prox Calf ?1.9 ?? GSV, Mid Calf ?2.0 ?? GSV, Distal Calf ? 1.2 ? Renal Duplex ultrasound 09/10 Scan pending ?? AP Pretty Harmon is a 67 y.o. female w multiple admissions for flash pulm edema in setting of proximalocclusion of R renal artery. Unsuccessful last week in crossing R renal occlusion. Now 5 Days Post-Op from R iliac to R renal arterial bypass. Overall the patient is recovering well from surgery, but continues to have issues with hypertension,Appreciate nephrology recommendations. Blood pressure now well controled with PO antihypertensives Will plan to transfer to floor. Continue to monitor for HTN. Given abdominal distension, will plan to continue clear liquids today. Continue diet to clears - PO medications , - monitor blood pressure closely - Now off nicardipine, continue with PO antihypertensives - Floor status Thom Velasquez MD PGY -2 Section of Vascular Surgery, Pager [phone] Nuha Michael MD - 09/11/2018 10:20 AM EDT NEPHROLOGY PROGRESS NOTE PATIENT: Pretty Harmon : 1950 REASON FOR CONSULTATION: GAEL in the setting of hypertensive urgency and contrast exposure in attempted intervention for severe bilateral renal artery stenosis (70%) ID:: This is a 67 year old woman with HFpEF (EF 54% on 08/2018 TTE), bilateral renal artery stenosis (>60% occlusion bilaterally in 01/2018, progression of R stenosis to occlusion and persistent L stenosis on most recent duplex in 08/2018), 3.7 cm AAA, acute HBV, HTN, HLD, former tobacco use (45 years up to 1ppd at max, quit 10 years ago), and 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 Underwent angiogram on 09/01 but was unable to intervene on occluded R stenosis and ultimately found L side darien more patent than expected and did not intervene and was transferred to ICU as she became more sobwith worsening pulmonary edema. 24 hours events; BP improving and is on nicardipine drip and IV labetolol/hydralazine.NGT removed and tolerating liquids.Had a good U.out put about 3.7L yesterday with almost net even fluid balance.Creatinine down trending PHYSICAL EXAM: Intake/Output Summary (Last 24 hours) at 09/11/2018 1320 Last data filed at 09/11/2018 1200 Gross per 24 hour Intake 4679.42 ml Output 3250 ml Net 1429.42 ml Last value Range last 24 hrs Temperature Temp: 37 ??C (98.6 ??F) Temp: [37 ??C (98.6 ??F)-37.2 ??C (99 ??F)] Heart Rate Heart Rate: 87 Heart Rate: [65-89] Blood Pressure BP: 155/67 BP: (138-164)/(40-75) Respiratory Rate Resp: 14 Resp: [10-27] SpO2 SpO2: 92 % SpO2: [92 %-96 %] Appearance - Awake and alert. Pleasant, interactive. In NAD. Skin - Warm, dry. HEENT - No sclera icterus.: Chest -CTABL,no wheezing/creps/crackles Heart - S1 and S2. RRR. No MRG. Abd - Soft. Non-tender. Non-distended. Normal BS. Ext - Warm extremities. Rt lower extremity was in crepe bandage and abdominal wound was packed in sterile dressing. Neuro - Moving extremities without issues. Labs: CBC: Recent Labs 09/11/18 0730 09/10/18 0245 09/09/18 0250 WBC 11.8* 14.5* 18.8* HGB 10.3* 11.2* 11.9 PLATELET 231 244 223 Chemistry: Recent Labs 09/11/18 0730 09/10/18 0245 09/09/18 0250 09/08/18 1500 09/07/18 2035 09/03/18 0655 NA 141 145 140 137 < > 137 < > 131* K 3.1* 3.6 4.3 4.3 < > 4.5 < > 5.2* CL 106 103 100 97* < > 96* < > 99 CO2 22 25 23 23 < > 25 < > 19* BUN 32* 44* 44* 45* < > 40* < > 50* CREATININE 1.61* 2.22* 2.42* 2.67* < > 2.85* < > 2.80* GLUCOSE -- -- -- 129 -- 199 -- 140 < > = values in this interval not displayed. Recent Labs 09/11/18 0730 09/10/18 0245 09/09/18 0250 09/03/18 0035 09/02/18 0329 08/31/18 0015 CALCIUM 8.4* 8.8 8.6 < > 8.2* 8.5 < > 7.9* MAGNESIUM 0.83 0.90 0.94 < > 0.95 0.97 < > 0.75 PHOS -- -- -- -- 4.4 6.2* -- 3.5 < > = values in this interval not displayed. 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) who had recurrent hospital admissions with sob and flash pulmonary edema in the setting of known renal artery stenosis with failed medical treatment .She did underwent angio this admission ,was found that she have complete occlusion of right renal artery and left renal artery is patent .Shewas transferred to ICU after procedure as her respiratory distress worsened required BIPAP support which improved with lasix .Functional scan which showed that right kidney is contributing 45% of totalkidney function .S/p renal artery bypass on 09/07.transferred to step down unit post procedure and isimproving clinically and needing nicardipine drip for BP control 1,Renal artery stenosis s/p extraanatomical bypass - Renal function is improving with good UOP. - Recommend to start PO BP medications with labetalol 200 mg PO BID,Procardia XL 30 mg BID and titrte off nicardipine as tolerated - Monitor Is and Os,Daily weight,avoid contrast studies or NSAID's. -No acute electrolyte abnormalities.no overt fluid overload,uremic sx needing OPERATING ROOM SURGICAL TECHNICIAN. - improving creatinine and robust U.out put -Daily weights -Low salt diet We will continue to follow. Please call with any questions.Discussed with Dr.Remillard Nuha Young Nephrology Fellow . #[id number] Wilman Treadwell MD - 09/11/2018 8:50 AM EDT The patient was seen and examined with the nephrology fellow. Please see the nephrology fellow's note from today for details. I have reviewed the fellow's note including the exam, assessment and plan. My evaluation of the patient is as follows: Patient is doing well this morning. She is beginning to take p.o. Her blood pressure is 145/48 on the current IV medications. I would suggest trying to change her to Procardia XL 30 mg twice daily withlabetalol 200 mg p.o. twice daily. This could be supplemented by 20 mg doses of labetalol IV as needed. Otherwise it appears that things are going well in terms of her bypass in the recovery of renal function related to reperfusion of her kidney. Thom Velasquez - 09/11/2018 7:15 AM EDT Vascular surgery consult service Pretty Harmon is a 67 y.o. female with right renal artery occlusion who presents w flash pulm edema - several episodes over past 6 months. Int: Continued on nicardipine ggt Passing flatus, NGT removed Tolerating sip and chips no N/V O: Temp: [37 ??C (98.6 ??F)] Heart Rate: [65-89] Resp: [11-21] BP: (143-153)/(45-75) SpO2: [92 %-96 %] Heart Rate from SpO2: [66 bpm-88 bpm] I/O last 3 completed shifts: In: 4727.4 [P.O.:465; I.V.:4259.4; IV Piggyback:3] Out: 4775 [Urine:4775] No intake/output data recorded. Physical Exam General: NAD, resting comfortably, thin HEENT: PERRL, anicteric sclerae, CVS: Regular rate, no murmurs rubs or gallops Pulm: +wheeze Abd: soft, non tender, non distended Ext: warm Neuro: CN 2-12 grossly intact, nonfocal, moving all extremities. Vascular Exam: Strong palp R femoral Unable to palp L femoral Lab Results Component Value Date WBC 14.5 (H) 09/10/2018 HGB 11.2 (L) 09/10/2018 HCT 33.8 (L) 09/10/2018 MCV 91.6 09/10/2018 PLATELET 244 09/10/2018 Lab Results Component Value Date CREATININE 2.22 (H) 09/10/2018 R GSV Duplex Right ?Diameter (mm) ?? GSV, Near SFJ ?6.5 ?? GSV, Proximal Thigh ?3.2 ?? GSV, Mid Thigh ? 3.2 ?? GSV, Distal Thigh ?3.2 ?? GSV, ??Knee ? 3.2 ?? GSV Prox Calf ?1.9 ?? GSV, Mid Calf ?2.0 ?? GSV, Distal Calf ? 1.2 ? Renal Duplex ultrasound 09/10 Scan pending ?? JAC Harmon is a 67 y.o. female w multiple admissions for flash pulm edema in setting of proximalocclusion of R renal artery. Unsuccessful last week in crossing R renal occlusion. Now 4 Days Post-Op from R iliac to R renal arterial bypass. Overall the patient is recovering well from surgery, but continues to have issues with hypertension,Appreciate nephrology recommendations. Will plan to add PO antihypertensives this AM in an attempt to wean ggt. Renal duplex on 09/10 with adequate renal flow but bypass not visualized Advance diet to clears - PO medications , - monitor blood pressure closely - Now wean nicard, continue with PO antihypertensives - ISCU status Thom Velasquez MD PGY -2 Section of Vascular Surgery, Pager [phone] Beba Aaron MD - 09/10/2018 3:38 PM EDT NEPHROLOGY PROGRESS NOTE PATIENT: Pretty Harmon : 1950 REASON FOR CONSULTATION: GAEL in the setting of hypertensive urgency and contrast exposure in attempted intervention for severe bilateral renal artery stenosis (70%) ID:: This is a 67 year old woman with HFpEF (EF 54% on 08/2018 TTE), bilateral renal artery stenosis (>60% occlusion bilaterally in 01/2018, progression of R stenosis to occlusion and persistent L stenosis on most recent duplex in 08/2018), 3.7 cm AAA, acute HBV, HTN, HLD, former tobacco use (45 years up to 1ppd at max, quit 10 years ago), and 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 Underwent angiogram on 09/01 but was unable to intervene on occluded R stenosis and ultimately found L side darien more patent than expected and did not intervene and was transferred to ICU as she became more sobwith worsening pulmonary edema. 24 hours events; - ;S/p Bypass surgery on 09/07 - Planning to start back on Nicardipine drip. - Good UOP -2.2 lts with stable vs down trending creatinine. - Did not pass gas and still have NG tube. PHYSICAL EXAM: Intake/Output Summary (Last 24 hours) at 09/10/2018 1538 Last data filed at 09/10/2018 1516 Gross per 24 hour Intake 1159 ml Output 3325 ml Net -2166 ml Last value Range last 24 hrs Temperature Temp: 37.4 ??C (99.3 ??F) Temp: [37 ??C (98.6 ??F)-37.6 ??C (99.7 ??F)] Heart Rate Heart Rate: 70 Heart Rate: [59-99] Blood Pressure BP: 146/47 BP: (146-186)/(47-75) Respiratory Rate Resp: 11 Resp: [10-20] SpO2 SpO2: 97 % SpO2: [91 %-98 %] Appearance - Awake and alert. Pleasant, interactive. In NAD. Skin - Warm, dry. HEENT - No sclera icterus.:NG tube in place Chest - Lungs have clear air entry bilaterally. Heart - S1 and S2. RRR. No MRG. Abd - Soft. Non-tender. Non-distended. Normal BS. Ext - Warm extremities. Rt lower extremity was in crepe bandage and abdominal wound was packed in sterile dressing. Neuro - Moving extremities without issues. Labs: CBC: Recent Labs 09/10/1824409/09/1824909/08/18 1500 WBC 14.5* 18.8* 21.6* HGB 11.2* 11.9 11.5* PLATELET 244 223 249 Chemistry: Recent Labs 09/10/1824409/09/1824909/08/18 1500 09/07/185 09/03/18 0655 NA 145 140 137 < > 137 < > 131* K 3.6 4.3 4.3 < > 4.5 < > 5.2* CL 103 100 97* < > 96* < > 99 CO2 25 23 23 < > 25 < > 19* BUN 44* 44* 45* < > 40* < > 50* CREATININE 2.22* 2.42* 2.67* < > 2.85* < > 2.80* GLUCOSE -- -- 129 -- 199 -- 140 < > = values in this interval not displayed. Recent Labs 09/10/1824409/09/18 0250 09/08/18 1500 09/08/18 0515 09/03/18 0035 09/02/18 0329 08/31/18 0015 CALCIUM 8.8 8.6 8.6 8.9 < > 8.2* 8.5 < > 7.9* MAGNESIUM 0.90 0.94 -- 1.04 < > 0.95 0.97 < > 0.75 PHOS -- -- -- -- -- 4.4 6.2* -- 3.5 < > = values in this interval not displayed. 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 1,Renal artery stenosis s/p extraanatomical bypass - Kidney function is stable vs improving with good UOP. - Can start back on Nicardipine drip ,need IV labetalol prn 20 mg every 1 hr prn for max dose of 300mg/day and will consider nifedipine if she could tolerate po. - Not sure at this time the extent of blood pressure control with surgery but will watch closely by up ti trating her medications. - Monitor Is and Os,Daily weight,avoid contrast studies or NSAID's. We will continue to follow. Please call with any questions. Beba Aaron MD Nephrology Fellow . #[id number]. Thom Velasquez - 09/10/2018 12:18 PM EDT Vascular surgery consult service Pretty Harmon is a 67 y.o. female with right renal artery occlusion who presents w flash pulm edema - several episodes over past 6 months. Int: Issues with hypertension overnight, resistent to IV PRN medication Started on nicardipine ggt this AM Denies any chest pain sob Still awaiting ROBF Feels well O: Temp: [37.1 ??C (98.8 ??F)-37.3 ??C (99.1 ??F)] Heart Rate: [67-81] Resp: [11-20] BP: (150-186)/(48-75) SpO2: [95 %-98 %] Heart Rate from SpO2: [67 bpm-81 bpm] I/O last 3 completed shifts: In: 1746 [I.V.:1686; Other:60] Out: 4475 [Urine:4175; Other:300] I/O this shift: In: - Out: 1500 [Urine:1500] Physical Exam General: NAD, resting comfortably, thin HEENT: PERRL, anicteric sclerae, NGT in place CVS: Regular rate, no murmurs rubs or gallops Pulm: +wheeze Abd: soft, non tender, non distended Ext: warm Neuro: CN 2-12 grossly intact, nonfocal, moving all extremities. Vascular Exam: Strong palp R femoral Unable to palp L femoral Lab Results Component Value Date WBC 14.5 (H) 09/10/2018 HGB 11.2 (L) 09/10/2018 HCT 33.8 (L) 09/10/2018 MCV 91.6 09/10/2018 PLATELET 244 09/10/2018 Lab Results Component Value Date CREATININE 2.22 (H) 09/10/2018 R GSV Duplex Right ?Diameter (mm) ?? GSV, Near SFJ ?6.5 ?? GSV, Proximal Thigh ?3.2 ?? GSV, Mid Thigh ? 3.2 ?? GSV, Distal Thigh ?3.2 ?? GSV, ??Knee ? 3.2 ?? GSV Prox Calf ?1.9 ?? GSV, Mid Calf ?2.0 ?? GSV, Distal Calf ? 1.2 ? Renal Duplex ultrasound 09/10 Scan pending ?? AP Pretty Harmon is a 67 y.o. female w multiple admissions for flash pulm edema in setting of proximalocclusion of R renal artery. Unsuccessful last week in crossing R renal occlusion. Now 3 Days Post-Op from R iliac to R renal arterial bypass. Overall the patient is recovering well from surgery, but continues to have issues with hypertension,will re-engage nephrology and start patient on nicardipine ggt. Will obtain Renal duplex to assess interval change in blood flow which could be causing HTN Will continue NGT decompression for today, - monitor blood pressure closely - Now totally off nicardipine, continue with PO antihypertensives - NGT decompression, okay for few chips of ice per shift - ISCU status Thom Velasquez MD PGY -2 Section of Vascular Surgery, Pager [phone] Wilman Treadwell MD - 09/10/2018 10:34 AM EDT The patient was seen and examined with the nephrology fellow. Please see the nephrology fellow's note from today for details. I have reviewed the fellow's note including the exam, assessment and plan. My evaluation of the patient is as follows: Patient is seen and examined in her room. We suggest decreasing the IV fluid to 50 cc/h for today. She is on nicardipine drip which could be increased to 15 mg/h if needed. Rather than use hydralazine,we suggest trying labetalol 20 mg IV push every hour as needed to get her blood pressure down. The maximum dose is 300 mg a day. I think if we can get her controlled on labetalol then we could plan on transitioning her over to an oral calcium channel se such as Procardia XL 30 mg twice daily tomorrow along with p.o. labetalol 200 twice a day. Neena Morley RD - 09/10/2018 8:15 AM EDT Clinical Nutrition Follow Up Reason for Consultation: NPO x 6 days Height: 60 Weight: 42.5 kg (admit wt: 47.4 kg) BMI: 18.1 UBW: 110#- per pt Weight Hx: Wt Readings from Last 3 Encounters: 09/07/18 42.5 kg (93 lb 11.1 oz) 07/19/18 47.6 kg (105 lb) 06/14/18 48.1 kg (106 lb) Significant Past Medical and Surgical Hx: Past Medical History: Diagnosis Date ??? AAA (abdominal aortic aneurysm) [id number] angiogram; 3.2 cm infrarenal ??? Constipation ??? Dyslipidemia ??? Hypertension ??? Insomnia ??? Peripheral vascular disease ??? Renal artery stenosis R; per 2009 angiogram Current Diet Order: sips and chips Enteral Access: NGT IV Access: PICC Appetite/PO Intake:NPO Pertinent Medications and drips: heparin, NS @ 125 ml/hr, protonix, labetalol Pertinent Labs: Lab Results Component Value Date NA 145 09/10/2018 K 3.6 09/10/2018 CL 103 09/10/2018 CO2 25 09/10/2018 BUN 44 (H) 09/10/2018 CREATININE 2.22 (H) 09/10/2018 GLUCOSE 129 09/08/2018 GLUCFASTING 105 (H) 09/10/2018 CALCIUM 8.8 09/10/2018 ESTGFR 22 (L) 09/10/2018 Gastrointestinal (per RN flowsheet): Abdominal Exam: WNL, rounded abd, tender LBM: 09/07 I/O: I/O last 3 completed shifts: In: 1746 [I.V.:1686; Other:60] Out: 4475 [Urine:4175; Other:300] Estimation of Nutrition Needs: Total Energy Estimated Needs: 4389-4061 kcal Method for Estimating Needs: 25-30 kcal/kg Estimated Protein Needs Total Protein Estimated Needs: 42-50g Method for Estimating Needs: 1-1.2 g/kg Assessment: Pt is 67 yo female admit with hypertensive emergency and acute on chronic diastolic HF. PMH sig for bilateral renal artery stenosis, AAA, and CKD (baseline CR 1.8-2). Now POD 2 s/p renal artery bypass c/b worsening resp status requiring bipap. NGT in place. Pt asking to eat. If unable to advance diet today, rec starting PN. She is NPO x 6 days. Recommendations: 1- Timely diet advance to Regular. 2- If cannot advance diet today, start PPN for weekend. 3- Maximize PO intake with supplement when/if diet advanced. Addendum: Discussed recs with Thom Velasquez MD- diet not advanced because no return of bowel fxn noted; agreeable for trickle TF instead of PPN. Suggest Promote 10 ml/hr. Provides 240 kcal and 15g protein. (Can adv to 20 ml/hr) ? Trial diet adv to clears. Neena Morley RD, LD Pager [phone] Thom Vleasquez - 09/09/2018 3:49 PM EDT Vascular surgery consult service Pretty Harmon is a 67 y.o. female with right renal artery occlusion who presents w flash pulm edema - several episodes over past 6 months. Int: No overnight events Blood pressure controlled On nasal cannula Feels well O: Temp: [37.6 ??C (99.7 ??F)-37.8 ??C (100 ??F)] Heart Rate: [73-86] Resp: [11-19] BP: (172-177)/(58-66) SpO2: [95 %-98 %] Heart Rate from SpO2: [73 bpm-86 bpm] I/O last 3 completed shifts: In: 3408.5 [I.V.:3358.5; Other:50] Out: 4635 [Urine:4235; Other:400] I/O this shift: In: 136 [I.V.:106; Other:30] Out: 1350 [Urine:1200; Other:150] Physical Exam General: NAD, resting comfortably, thin HEENT: PERRL, anicteric sclerae, NGT in place CVS: Regular rate, no murmurs rubs or gallops Pulm: +wheeze Abd: soft, non tender, non distended Ext: warm Neuro: CN 2-12 grossly intact, nonfocal, moving all extremities. Vascular Exam: Strong palp R femoral Unable to palp L femoral Lab Results Component Value Date WBC 18.8 (H) 09/09/2018 HGB 11.9 09/09/2018 HCT 34.6 (L) 09/09/2018 MCV 88.9 09/09/2018 PLATELET 223 09/09/2018 Lab Results Component Value Date CREATININE 2.42 (H) 09/09/2018 R GSV Duplex Right ?Diameter (mm) ?? GSV, Near SFJ ?6.5 ?? GSV, Proximal Thigh ?3.2 ?? GSV, Mid Thigh ? 3.2 ?? GSV, Distal Thigh ?3.2 ?? GSV, ??Knee ? 3.2 ?? GSV Prox Calf ?1.9 ?? GSV, Mid Calf ?2.0 ?? GSV, Distal Calf ? 1.2 ? Nuc Med Scan FINDINGS: Homogeneous tracer uptake in all regions of both kidneys. The right kidney appears slightly smaller than the left kidney. ?? Quantitative Analysis: The split functional analysis: Right 45%; Left 55%. ?? Incidental finding of diffuse soft tissue background activity, consistent with some degree of bilateral renal insufficiency. ?? IMPRESSION Differential function is 45% right kidney, 55% left kidney. ?? AP Pretty Harmon is a 67 y.o. female w multiple admissions for flash pulm edema in setting of proximalocclusion of R renal artery. Unsuccessful last week in crossing R renal occlusion. Now 2 Days Post-Op from R iliac to R renal arterial bypass. Overall the patient is recovering well from surgery. Will continue NGT decompression for today, - monitor blood pressure closely - Now totally off nicardipine, continue with PO antihypertensives - NGT decompression, okay for few chips of ice per shift - transfer out of SICU Thom Velasquez MD PGY -2 Section of Vascular Surgery, Pager [phone] Beba Aaron MD - 09/09/2018 3:38 PM EDT NEPHROLOGY PROGRESS NOTE PATIENT: Pretty Harmon : 1950 REASON FOR CONSULTATION: GAEL in the setting of hypertensive urgency and contrast exposure in attempted intervention for severe bilateral renal artery stenosis (70%) ID:: This is a 67 year old woman with HFpEF (EF 54% on 08/2018 TTE), bilateral renal artery stenosis (>60% occlusion bilaterally in 01/2018, progression of R stenosis to occlusion and persistent L stenosis on most recent duplex in 08/2018), 3.7 cm AAA, acute HBV, HTN, HLD, former tobacco use (45 years up to 1ppd at max, quit 10 years ago), and 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 Underwent angiogram on 09/01 but was unable to intervene on occluded R stenosis and ultimately found L side darien more patent than expected and did not intervene and was transferred to ICU as she became more sobwith worsening pulmonary edema. 24 hours events; - ;S/p Bypass surgery on 09/07 - Off Nicardipine drip - Good UOP -3.8 lts with stable vs down trending creatinine. - Did not pass gas and still have NG tube. PHYSICAL EXAM: Intake/Output Summary (Last 24 hours) at 09/09/2018 1538 Last data filed at 09/09/2018 1200 Gross per 24 hour Intake 977 ml Output 3685 ml Net -2708 ml Last value Range last 24 hrs Temperature Temp: 37.6 ??C (99.7 ??F) Temp: [37.1 ??C (98.8 ??F)-37.8 ??C (100 ??F)] Heart Rate Heart Rate: 73 Heart Rate: [60-86] Blood Pressure BP: 172/66 BP: (172-177)/(55-66) Respiratory Rate Resp: 12 Resp: [9-19] SpO2 SpO2: 98 % SpO2: [90 %-98 %] Appearance - Awake and alert. Pleasant, interactive. In NAD. Skin - Warm, dry. HEENT - No sclera icterus.:NG tube in place Chest - Lungs have clear air entry bilaterally. Heart - S1 and S2. RRR. No MRG. Abd - Soft. Non-tender. Non-distended. Normal BS. Ext - Warm extremities. Rt lower extremity was in crepe bandage and abdominal wound was packed in sterile dressing. Neuro - Moving extremities without issues. Labs: CBC: Recent Labs 09/09/1824909/08/18149909/08/18 0630 WBC 18.8* 21.6* 22.4* HGB 11.9 11.5* 11.6* PLATELET 223 249 216 Chemistry: Recent Labs 09/09/1824909/08/18149909/08/18 0515 09/07/18 2035 09/03/18 0655 NA 140 137 138 137 < > 131* K 4.3 4.3 4.8 4.5 < > 5.2* CL 100 97* 96* 96* < > 99 CO2 23 23 26 25 < > 19* BUN 44* 45* 42* 40* < > 50* CREATININE 2.42* 2.67* 2.69* 2.85* < > 2.80* GLUCOSE -- 129 -- 199 -- 140 < > = values in this interval not displayed. Recent Labs 09/09/1824909/08/18149909/08/18 0515 09/07/18 0030 09/03/18 0035 09/02/18 0329 08/31/18 0015 CALCIUM 8.6 8.6 8.9 < > 8.5 < > 8.2* 8.5 < > 7.9* MAGNESIUM 0.94 -- 1.04 -- 0.84 < > 0.95 0.97 < > 0.75 PHOS -- -- -- -- -- -- 4.4 6.2* -- 3.5 < > = values in this interval not displayed. 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 1,Renal artery stenosis s/p extraanatomical bypass - Kidney function is stable vs improving with good UOP. - Will consider adding Labetalol and Amlodipine as she is currently off Nicardipine drip.Blood pressures getting better after surgery. - Watch for post op complications like graft thrombosis ,CAD,Cholesterol embolization and if kidney function does not improve then need further imaging to evaluate further. - Monitor Is and Os,Daily weight,avoid contrast studies or NSAID's. Thank you for this very interesting consult. We will continue to follow. Please call with any questions. Beba Aaron MD Nephrology Fellow . #[id number]. Associated attestation - Tyron Kemp MD - 09/09/2018 5:01 PM EDT I saw and discussed the patient with the fellow and agree with the assessment and plan in her note. Patient is transition out of the ICU to stepdown. Urine output was robust yesterday without any diuretics. Blood pressure remains high and unclear whether she still has discomfort postsurgical and to what extent this is contributing. Believe it is reasonable to start long-acting vasodilator amlodipine,and while long-term patient would likely benefit from YING inhibition, would limit this given potential acute impact on GFR. Mookie Gallegos RN - 09/09/2018 10:54 AM EDT Pt transported to [facility] with all belongings and VSS, 2L NC with PT. Edwin Ayala MD - 09/09/2018 8:19 AM EDT Patient Name: Pretty Harmon Patient Age: 67 y.o. Birthdate: 1950 Admit date: 08/29/2018 Attending Physician: Wilman Randolph MD Surgical Critical Care Staff Progress Note ? - I have personally seen and examined the patient on critical care multidisciplinary rounds. ?? - I independently reviewed all data and labs, and directly visualized the pertinent radiological images themselves. Pretty Harmon is a 67 y.o. with the following medical issues: Active Hospital Problems Diagnosis ??? Hypertensive urgency Resolved Hospital Problems No resolved problems to display. Past Medical History: Diagnosis Date ??? AAA (abdominal aortic aneurysm) [id number] angiogram; 3.2 cm infrarenal ??? Constipation ??? Dyslipidemia ??? Hypertension ??? Insomnia ??? Peripheral vascular disease ??? Renal artery stenosis R; per 2009 angiogram Past Surgical History: Procedure Laterality Date ??? HYSTERECTOMY ? ? PRO CATHETER 1ST ORDER W/WO ART PUNCT/FLUORO/S&I BILATERAL Bilateral 09/01/[address] (FIRST-ORDER), MAIN RENAL ART & ANY ACC, W/S&I; ANDREY (WRVU 6.99) performedby Greyson Chen MD at [facility] MAIN OR ??? PRO UPPER GI ENDOSCOPY, DIAGNOSTIC 01/20/2014 EGD, UPPER GI ENDOSCOPY performed by Corby Cano MD at [facility] ENDOSCOPY ??? PRO UPPER GI ENDOSCOPY, DIAGNOSTIC N/A 07/28/2017 EGD, UPPER GI ENDOSCOPY performed by Snow Liao MD at [facility] ENDOSCOPY Current Medications: ??? pantoprazole 40 mg Intravenous Daily ??? aspirin 300 mg Rectal Daily ??? heparin (Porcine) 5,000 Units Subcutaneous 2 times per day ??? lidocaine 3 patch Transdermal Q24H And ??? lidocaine 3 patch Transdermal Q24H ??? sodium chloride 0.9 % 5 mL Intravenous BID Current Facility-Administered Medications Medication Dose Route Frequency ??? hydrALAZINE (APRESOLINE) injection 10 mg 10 mg Intravenous Q6H PRN ??? thrombin (Bovine) (THROMBINAR) kit Once PRN ??? gelatin adsorbable 100 (GELFOAM) sponge Once PRN ??? HYDROmorphone (DILAUDID) injection 0.4 mg 0.4 mg Intravenous Q1H PRN ??? ipratropium-albuterol (DUONEB) 0.5 mg-3 mg(2.5 mg base)/3 mL nebulizer solution 3 mL 3 mL Nebulization 4 Times Daily PRN ??? ondansetron (ZOFRAN) injection 4 mg 4 mg Intravenous Q8H PRN ??? potassium chloride (K-DUR/KLOR-CON) extended release tablet 20 mEq 20 mEq Oral Q4H PRN Or ??? potassium chloride (K-DUR/KLOR-CON) extended release tablet 40 mEq 40 mEq Oral Q4H PRN ??? potassium chloride 20 mEq in 100 mL 20 mEq Intravenous Q1H PRN Or ??? potassium chloride 20 mEq in 100 mL 20 mEq Intravenous Q1H PRN Or ??? potassium chloride 20 mEq in 100 mL 20 mEq Intravenous Q1H PRN ??? calcium carbonate (Tums) chewable tablet 500 mg 500 mg Oral TID PRN ??? BUpivacaine (PF) (MARCAINE) 0.5 % (5 mg/mL) injection Once PRN ??? lidocaine (XYLOCAINE) 10 mg/mL (1 %) injection Once PRN ??? iodixanol (VISIPAQUE) 320 mg iodine/mL injection Once PRN ??? sodium chloride 0.9 % flush 5-20 mL 5-20 mL Intravenous Q1 Min PRN ??? lidocaine (XYLOCAINE) 10 mg/mL (1 %) injection 3 mg 0.3 mL Subcutaneous Once PRN ??? sodium chloride 0.9% infusion 50 mL/hr Intravenous Continuous ### ??? niCARdipine 0.2 mg/mL (standard Adult and Pedi greater than 20 kg) infusion 0-15 mg/hr Intravenous Continuous ### Admitted 09/05 with hypoxic resp failure from pulmonary edema related to renal artery stenosis and poor systolic function Underwent right ext iliac to right renal artery bypass with reversed saphenous vein Returned form OR awake on nasal canula 24 Hour events: ?? S/P OR yesterday ?? No acute issues overnight ?? Blood pressure control adequate on nicardipine drip ?? Awake and alert ?? Pain well controlled EXAM: Last value Range last 24 hrs Temperature Temp: 37.7 ??C (99.9 ??F) Temp: [36.8 ??C (98.2 ??F)-37.7 ??C (99.9 ??F)] Heart Rate Heart Rate: 77 Heart Rate: [49-80] Blood Pressure BP: (S) 175/55(PRN Hydralizine/Labetelol given) BP: (137-175)/(49-55) Respiratory Rate Resp: 10 Resp: [8-24] SpO2 SpO2: 90 % SpO2: [90 %-98 %] Art BP BP (Arterial Line): 161/80 BP (Arterial Line): (145-172)/(51-98) BMI: Body mass index is 17.71 kg/m??. Intake/Output Summary (Last 24 hours) at 09/09/2018 0819 Last data filed at 09/09/2018 0604 Gross per 24 hour Intake 1561.5 ml Output 3535 ml Net -1973.5 ml Nicardipine 09/08 10 General: Thin woman in no acute distress HEENT: NGT with low output Neck: Lungs: clear lungs bilaterally Chest: no resp distress Heart: RRR Abd: mildly distended, soft Extremities: warm, well perfused Neuro: intact Date WBC Hct Plts Na/K BUN/Cr Glucose Lactate 09/08 22.4 33.5 216 138/4.8 42/2.69 199 PTT/INR Fibrinogen AST/ALT Alkphos Biliruben Microbiology: Imaging: Other Studies: Echocardiogram 08/30 1. Mild concentric left ventricular hypertrophy is [...] There is no hemodynamically significant valve disease. Diagnoses: ?? Right renal artery occlusion s/p bypass Assessment/Plan: ?? Overall doing well with good blood pressure control ?? No evidence of bleeding ?? Stable renal function Neurologic: ?? Awake and alert ?? Pain control good Pulmonary: ?? No respiratory distress overnight and stable Cardiovascular: ?? Continuing nicardipine for hypertension - Goal <160 ?? Metoprolol 2.5 mg q6 hours (holding for HR) ?? Hydralazine for blood pressure ?? Nicardipine drip ?? Restart outpt blood pressure medications when NGT removed ?? GI: ?? NGT removal per vascular surgery ?? PUD px: Add protonix for stress ulcer prophylaxis ?? Bowel regimen ?? : ?? Follow UOP, BUN, creatinine Urine output BUN/Creatinine 09/07 860 cc 42/2.69 ?? Daily weights ?? Hematologic: ?? Mechanical DVT px scd left leg ?? Pharmacologic DVT px: Heparin 5000 units bid ?? Infectious Disease: ?? Antibiotics: Perioperative ancef ?? Cultures: ?? Musculoskeletal: ?? Activity: Out of bed to chair ?? OOB/PT/OT - evaluating patients Skin/oral/wound care: Routine ?? Fluids: NS at 100 cc per hour Electrolytes: Endocrine: Synthroid Nutrition: ?? Condition/disposition: ICU status - should be able to be transferred out of the ICU later today Code Status: Family discussion: Multi-discipline discussion: RN was part of rounds. ?? EDWIN AYALA MD@ 8:19 AM I personally performed [25] minutes of aggregate critical care time exclusive of procedures and teaching.??This includes time spent during direct patient evaluation and reassessment, interpreting diagnostic tests, directing life and/or organ supporting interventions and documentation on the unit. TimeI spent with family or surrogate(s) is only included if the patient was incapable of providing the necessary information or participating in medical decision making and the information or a decision regarding treatment options was immediately necessary. ?? IS PATIENT CRITICALLY ILL ? Is there a high potential of sudden, clinically significant, or life threatening deterioration? No ?? Is there a need for direct personal assessment and management to treat/prevent multiple vital organfailure/deterioration? No ?? Thom Velasquez - 09/08/2018 11:30 AM EDT Vascular surgery consult service Pretty Harmon is a 67 y.o. female with right renal artery occlusion who presents w flash pulm edema - several episodes over past 6 months. Int: No overnight events Tolerated surgery well Blood pressure controlled On nasal cannula Feels well O: Temp: [36.5 ??C (97.7 ??F)-36.7 ??C (98.1 ??F)] Heart Rate: [49-60] Resp: [6-15] BP: (137)/(49) SpO2: [96 %-98 %] Heart Rate from SpO2: [50 bpm-60 bpm] I/O last 3 completed shifts: In: 2475.7 [P.O.:180; I.V.:2285.7; Other:10] Out: 3060 [Urine:3060] I/O this shift: In: 826 [I.V.:816; Other:10] Out: 900 [Urine:800; Other:100] Physical Exam General: NAD, resting comfortably, thin HEENT: PERRL, anicteric sclerae, NGT in place CVS: Regular rate, no murmurs rubs or gallops Pulm: +wheeze Abd: soft, non tender, non distended Ext: warm Neuro: CN 2-12 grossly intact, nonfocal, moving all extremities. Vascular Exam: Strong palp R femoral Unable to palp L femoral Lab Results Component Value Date WBC 22.4 (H) 09/08/2018 HGB 11.6 (L) 09/08/2018 HCT 33.5 (L) 09/08/2018 MCV 88.9 09/08/2018 PLATELET 216 09/08/2018 Lab Results Component Value Date CREATININE 2.69 (H) 09/08/2018 R GSV Duplex Right ?Diameter (mm) ?? GSV, Near SFJ ?6.5 ?? GSV, Proximal Thigh ?3.2 ?? GSV, Mid Thigh ? 3.2 ?? GSV, Distal Thigh ?3.2 ?? GSV, ??Knee ? 3.2 ?? GSV Prox Calf ?1.9 ?? GSV, Mid Calf ?2.0 ?? GSV, Distal Calf ? 1.2 ? Nuc Med Scan FINDINGS: Homogeneous tracer uptake in all regions of both kidneys. The right kidney appears slightly smaller than the left kidney. ?? Quantitative Analysis: The split functional analysis: Right 45%; Left 55%. ?? Incidental finding of diffuse soft tissue background activity, consistent with some degree of bilateral renal insufficiency. ?? IMPRESSION Differential function is 45% right kidney, 55% left kidney. ?? AP Pretty Harmon is a 67 y.o. female w multiple admissions for flash pulm edema in setting of proximalocclusion of R renal artery. Unsuccessful last week in crossing R renal occlusion. Now 1 Day Post-Opfrom R iliac to R renal arterial bypass. Overall the patient is recovering well from surgery. Will continue NGT decompression for today, monitor blood pressure closely - continue to wean nicadipine ggt as tolerated - NGT decompression - will consider transferring out of SICU later today Thom Velasquez MD PGY -2 Section of Vascular Surgery, Pager [phone] Hiwot Ramirez MSW - 09/08/2018 11:08 AM EDT Attempted to meet with patient to discuss Advance Directives, but she was working with PT. Attempted again later and she was with a provider. Office of Case Management- Social Work Note CHAKA Rush, [facility] Pager [phone] Beba Aaron MD - 09/08/2018 9:50 AM EDT NEPHROLOGY PROGRESS NOTE PATIENT: Pretty Harmon : 1950 REASON FOR CONSULTATION: GAEL in the setting of hypertensive urgency and contrast exposure in attempted intervention for severe bilateral renal artery stenosis (70%) ID:: This is a 67 year old woman with HFpEF (EF 54% on 08/2018 TTE), bilateral renal artery stenosis (>60% occlusion bilaterally in 01/2018, progression of R stenosis to occlusion and persistent L stenosis on most recent duplex in 08/2018), 3.7 cm AAA, acute HBV, HTN, HLD, former tobacco use (45 years up to 1ppd at max, quit 10 years ago), and 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 Underwent angiogram on 09/01 but was unable to intervene on occluded R stenosis and ultimately found L side darien more patent than expected and did not intervene and was transferred to ICU as she became more sobwith worsening pulmonary edema. 24 hours events; - ;S/p Bypass surgery yesterday - Was on Nicardipine drip - maintaining reasonable UOP with net positive balance. PHYSICAL EXAM: Intake/Output Summary (Last 24 hours) at 09/08/2018 0950 Last data filed at 09/08/2018 0825 Gross per 24 hour Intake 2233 ml Output 1210 ml Net 1023 ml Last value Range last 24 hrs Temperature Temp: 36.6 ??C (97.9 ??F) Temp: [36 ??C (96.8 ??F)-37.4 ??C (99.3 ??F)] Heart Rate Heart Rate: 53 Heart Rate: [49-71] Blood Pressure BP: 137/49 BP: (137-160)/(49-67) Respiratory Rate Resp: (!) 6 Resp: [6-22] SpO2 SpO2: 97 % SpO2: [93 %-98 %] Appearance - Awake and alert. Pleasant, interactive. In NAD. Skin - Warm, dry. HEENT - No sclera icterus.:NG tube in place Chest - Lungs have clear air entry bilaterally. Heart - S1 and S2. RRR. No MRG. Abd - Soft. Non-tender. Non-distended. Normal BS. Ext - Warm extremities. Rt lower extremity was in crepe bandage and abdominal wound was packed in sterile dressing. Neuro - Moving extremities without issues. Labs: CBC: Recent Labs 09/08/1862909/07/18203409/07/180 WBC 22.4* 24.2* 11.7* HGB 11.6* 12.7 11.9 PLATELET 216 223 223 Chemistry: Recent Labs 09/08/1851409/07/18203409/07/180 09/03/18 0655 09/03/18 0035 NA 138 137 136 < > 131* 133* K 4.8 4.5 4.4 < > 5.2* 4.7 CL 96* 96* 97* < > 99 98 CO2 26 25 27 < > 19* 20* BUN 42* 40* 39* < > 50* 48* CREATININE 2.69* 2.85* 2.51* < > 2.80* 2.89* GLUCOSE -- 199 -- -- 140 172 < > = values in this interval not displayed. Recent Labs 09/08/1851409/07/18203409/07/18 0030 09/06/18 0600 09/03/18 0035 09/02/18 0329 08/31/18 0015 CALCIUM 8.9 8.8 8.5 < > 8.9 < > 8.2* 8.5 < > 7.9* MAGNESIUM 1.04 -- 0.84 -- 0.88 < > 0.95 0.97 < > 0.75 PHOS -- -- -- -- -- -- 4.4 6.2* -- 3.5 < > = values in this interval not displayed. 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 1,Renal artery stenosis s/p extraanatomical bypass - Kidney function is stable following surgery maintaining reasonable UOP. - Will consider adding Hydralazine to Nicardipine drip for blood pressure management - Watch for post op complications like graft thrombosis ,CAD,Cholesterol embolization and if kidney function does not improve then need further imaging to evaluate further. - Monitor Is and Os,Daily weight,avoid contrast studies or NSAID's. Thank you for this very interesting consult. We will continue to follow. Please call with any questions. Beba Aaron MD Nephrology Fellow . #[id number]. Associated attestation - Tyron Kemp MD - 09/08/2018 6:06 PM EDT I saw and discussed the patient with the fellow and agree with the assessment and plan in her note. Patient reports feeling okay status postop and she is keen to have her NG tube removed. We need to continue to closely monitor and control blood pressure, and given recent renal bypass would prefer to utilize agents which do not impact GFR (YING inhibition/diuretics ). She is currently on higher dose nicardipine infusion with well-controlled blood pressure. As long as patient is n.p.o. can also use hydralazine if necessary. Would start long-acting calcium channel blockers such as amlodipine realizing this can take several days to become therapeutic. We will closely follow her kidney function status post bypass and hopefully in coming days see improvement. Edwin Ayala MD - 09/08/2018 7:59 AM EDT Patient Name: Pretty Harmon Patient Age: 67 y.o. Birthdate: 1950 Admit date: 08/29/2018 Attending Physician: Wilman Randolph MD Surgical Critical Care Staff Progress Note ? - I have personally seen and examined the patient on critical care multidisciplinary rounds. ?? - I independently reviewed all data and labs, and directly visualized the pertinent radiological images themselves. Pretty Harmon is a 67 y.o. with the following medical issues: Active Hospital Problems Diagnosis ??? Hypertensive urgency Resolved Hospital Problems No resolved problems to display. Past Medical History: Diagnosis Date ??? AAA (abdominal aortic aneurysm) [id number] angiogram; 3.2 cm infrarenal ??? Constipation ??? Dyslipidemia ??? Hypertension ??? Insomnia ??? Peripheral vascular disease ??? Renal artery stenosis R; per 2009 angiogram Past Surgical History: Procedure Laterality Date ??? HYSTERECTOMY ? ? PRO CATHETER 1ST ORDER W/WO ART PUNCT/FLUORO/S&I BILATERAL Bilateral 09/01/[address] (FIRST-ORDER), MAIN RENAL ART & ANY ACC, W/S&I; ANDREY (WRVU 6.99) performedby Greyson Chen MD at [facility] MAIN OR ??? PRO UPPER GI ENDOSCOPY, DIAGNOSTIC 01/20/2014 EGD, UPPER GI ENDOSCOPY performed by Corby Cano MD at [facility] ENDOSCOPY ??? PRO UPPER GI ENDOSCOPY, DIAGNOSTIC N/A 07/28/2017 EGD, UPPER GI ENDOSCOPY performed by Snow Liao MD at [facility] ENDOSCOPY Current Medications: ??? lidocaine 1 mL Subcutaneous Once ??? levothyroxine 37.5 mcg Intravenous QAM ??? aspirin 300 mg Rectal Daily ??? ceFAZolin 1 g Intravenous Q8H ??? acetaminophen 1,000 mg Intravenous Q8H WILFRED ??? metoprolol 2.5 mg Intravenous Q6H ??? heparin (Porcine) 5,000 Units Subcutaneous 2 times per day ??? lidocaine 3 patch Transdermal Q24H And ??? lidocaine 3 patch Transdermal Q24H ??? shift total and Settings verification Intravenous 2 Times Daily - Shift Total ??? chlorhexidine 15 mL Oral BID ??? sodium chloride 0.9 % 5 mL Intravenous BID Current Facility-Administered Medications Medication Dose Route Frequency ??? thrombin (Bovine) (THROMBINAR) kit Once PRN ??? gelatin adsorbable 100 (GELFOAM) sponge Once PRN ??? HYDROmorphone (DILAUDID) injection 0.4 mg 0.4 mg Intravenous Q1H PRN ??? ipratropium-albuterol (DUONEB) 0.5 mg-3 mg(2.5 mg base)/3 mL nebulizer solution 3 mL 3 mL Nebulization 4 Times Daily PRN ??? ondansetron (ZOFRAN) injection 4 mg 4 mg Intravenous Q8H PRN ??? potassium chloride (K-DUR/KLOR-CON) extended release tablet 20 mEq 20 mEq Oral Q4H PRN Or ??? potassium chloride (K-DUR/KLOR-CON) extended release tablet 40 mEq 40 mEq Oral Q4H PRN ??? potassium chloride 20 mEq in 100 mL 20 mEq Intravenous Q1H PRN Or ??? potassium chloride 20 mEq in 100 mL 20 mEq Intravenous Q1H PRN Or ??? potassium chloride 20 mEq in 100 mL 20 mEq Intravenous Q1H PRN ??? calcium carbonate (Tums) chewable tablet 500 mg 500 mg Oral TID PRN ??? BUpivacaine (PF) (MARCAINE) 0.5 % (5 mg/mL) injection Once PRN ??? lidocaine (XYLOCAINE) 10 mg/mL (1 %) injection Once PRN ??? iodixanol (VISIPAQUE) 320 mg iodine/mL injection Once PRN ??? sodium chloride 0.9 % flush 5-20 mL 5-20 mL Intravenous Q1 Min PRN ??? lidocaine (XYLOCAINE) 10 mg/mL (1 %) injection 3 mg 0.3 mL Subcutaneous Once PRN ??? acetaminophen (TYLENOL) tablet 1,000 mg 1,000 mg Oral Q6H PRN ??? sodium chloride 0.9% infusion 100 mL/hr Intravenous Continuous ### ??? niCARdipine 0.2 mg/mL (standard Adult and Pedi greater than 20 kg) infusion 0-15 mg/hr Intravenous Continuous ### ??? ketamine (KETALAR) 500 mg in sodium chloride 0.9% 500 mL infusion 3 mcg/kg/min Intravenous Continuous ### Admitted 09/05 with hypoxic resp failure from pulmonary edema related to renal artery stenosis and poor systolic function Underwent right ext iliac to right renal artery bypass with reversed saphenous vein Returned form OR awake on nasal canula 24 Hour events: ?? S/P OR yesterday ?? No acute issues overnight ?? Blood pressure control adequate on nicardipine drip ?? Awake and alert ?? Pain well controlled EXAM: Last value Range last 24 hrs Temperature Temp: 36.7 ??C (98.1 ??F) Temp: [36 ??C (96.8 ??F)-37.4 ??C (99.3 ??F)] Heart Rate Heart Rate: 60 Heart Rate: [52-71] Blood Pressure BP: 137/57 BP: (137-160)/(56-67) Respiratory Rate Resp: 15 Resp: [8-22] SpO2 SpO2: 98 % SpO2: [93 %-98 %] Art BP BP (Arterial Line): 150/51 BP (Arterial Line): (101-150)/(51-93) BMI: Body mass index is 17.71 kg/m??. Intake/Output Summary (Last 24 hours) at 09/08/2018 0800 Last data filed at 09/08/2018 0610 Gross per 24 hour Intake 1781 ml Output 860 ml Net 921 ml Nicardipine 09/08 10 General: Thin woman in no acute distress HEENT: NGT with low output Neck: Lungs: clear lungs bilaterally Chest: no resp distress Heart: RRR Abd: mildly distended, soft Extremities: warm, well perfused Neuro: intact Date WBC Hct Plts Na/K BUN/Cr Glucose Lactate 09/08 22.4 33.5 216 138/4.8 42/2.69 199 PTT/INR Fibrinogen AST/ALT Alkphos Biliruben Microbiology: Imaging: Other Studies: Echocardiogram 08/30 1. Mild concentric left ventricular hypertrophy is [...] There is no hemodynamically significant valve disease. Diagnoses: ?? Right renal artery occlusion s/p bypass Assessment/Plan: ?? Overall doing well with good blood pressure control ?? No evidence of bleeding ?? Stable renal function Neurologic: ?? Awake and alert ?? Pain control good Pulmonary: ?? No respiratory distress overnight and stable Cardiovascular: ?? Continuing nicardipine for hypertension - Goal <160 ?? Metoprolol 2.5 mg q6 hours (holding for HR) ?? Hydralazine for blood pressure ?? Nicardipine drip ?? Restart outpt blood pressure medications when NGT removed ?? GI: ?? NGT removal per vascular surgery ?? PUD px: Add protonix for stress ulcer prophylaxis ?? Bowel regimen ?? : ?? Follow UOP, BUN, creatinine Urine output BUN/Creatinine 09/07 860 cc 42/2.69 ?? Daily weights ?? Hematologic: ?? Mechanical DVT px scd left leg ?? Pharmacologic DVT px: Heparin 5000 units bid ?? Infectious Disease: ?? Antibiotics: Perioperative ancef ?? Cultures: ?? Musculoskeletal: ?? Activity: Out of bed to chair ?? OOB/PT/OT - evaluating patients Skin/oral/wound care: Routine ?? Fluids: NS at 100 cc per hour Electrolytes: Endocrine: Synthroid Nutrition: ?? Condition/disposition: ICU status - should be able to be transferred out of the ICU later today Code Status: Family discussion: Multi-discipline discussion: RN was part of rounds. ?? EDWIN AYALA MD@ 8:00 AM I personally performed [25] minutes of aggregate critical care time exclusive of procedures and teaching.??This includes time spent during direct patient evaluation and reassessment, interpreting diagnostic tests, directing life and/or organ supporting interventions and documentation on the unit. TimeI spent with family or surrogate(s) is only included if the patient was incapable of providing the necessary information or participating in medical decision making and the information or a decision regarding treatment options was immediately necessary. ?? IS PATIENT CRITICALLY ILL ? Is there a high potential of sudden, clinically significant, or life threatening deterioration? No ?? Is there a need for direct personal assessment and management to treat/prevent multiple vital organfailure/deterioration? No ?? Leah Cline MD - 09/07/2018 1:24 PM EDT Vascular surgery consult service Pretty Harmon is a 67 y.o. female with right renal artery occlusion who presents w flash pulm edema - several episodes over past 6 months. Int: No overnight events On nasal cannula Feels well All questions answered re surgery O: Temp: [37 ??C (98.6 ??F)-37.2 ??C (99 ??F)] Heart Rate: [65-72] Resp: [13-22] BP: (145-158)/(59-65) SpO2: [94 %-97 %] Heart Rate from SpO2: [65 bpm-71 bpm] I/O last 3 completed shifts: In: 2188.1 [P.O.:1440; I.V.:748.1] Out: 4650 [Urine:4650] I/O this shift: In: 74 [I.V.:74] Out: - Physical Exam General: NAD, resting comfortably, thin HEENT: PERRL, anicteric sclerae CVS: Regular rate, no murmurs rubs or gallops Pulm: +wheeze Abd: soft, non tender, non distended Ext: warm Neuro: CN 2-12 grossly intact, nonfocal, moving all extremities. Vascular Exam: Strong palp R femoral Unable to palp L femoral Lab Results Component Value Date WBC 11.7 (H) 09/07/2018 HGB 11.9 09/07/2018 HCT 34.4 (L) 09/07/2018 MCV 87.3 09/07/2018 PLATELET 223 09/07/2018 Lab Results Component Value Date CREATININE 2.51 (H) 09/07/2018 R GSV Duplex Right ?Diameter (mm) ?? GSV, Near SFJ ?6.5 ?? GSV, Proximal Thigh ?3.2 ?? GSV, Mid Thigh ? 3.2 ?? GSV, Distal Thigh ?3.2 ?? GSV, ??Knee ? 3.2 ?? GSV Prox Calf ?1.9 ?? GSV, Mid Calf ?2.0 ?? GSV, Distal Calf ? 1.2 ? Nuc Med Scan FINDINGS: Homogeneous tracer uptake in all regions of both kidneys. The right kidney appears slightly smaller than the left kidney. ?? Quantitative Analysis: The split functional analysis: Right 45%; Left 55%. ?? Incidental finding of diffuse soft tissue background activity, consistent with some degree of bilateral renal insufficiency. ?? IMPRESSION Differential function is 45% right kidney, 55% left kidney. ?? AP Pretty Harmon is a 67 y.o. female w multiple admissions for flash pulm edema in setting of proximalocclusion of R renal artery. Unsuccessful last week in crossing R renal occlusion. Nuc med scan shows 45% Renal function is dependent on R renal. Considering recurrent episodes flash pulm edema pt willrequire intervention - nephrectomy vs bypass. With renal function still dependent on R kidney, we feel in hopes of preventing pt from needing HD, bypass would have better outcome from standpoint of herrenal function. Plan for R external iliac to R renal bypass with R greater saphenous vein today at 4pm. Pt will return to ICU post op; will need close attn to resp function, fluid balance, and renal function post op. Surgery likely 3-4 hours, 4-8pm. Leah Cline MD/SANDY, PGY-5 Section of Vascular Surgery, Pager [phone] Beba Aaron MD - 09/07/2018 9:58 AM EDT NEPHROLOGY PROGRESS NOTE PATIENT: Pretty Harmon : 1950 REASON FOR CONSULTATION: GAEL in the setting of hypertensive urgency and contrast exposure in attempted intervention for severe bilateral renal artery stenosis (70%) ID:: This is a 67 year old woman with HFpEF (EF 54% on 08/2018 TTE), bilateral renal artery stenosis (>60% occlusion bilaterally in 01/2018, progression of R stenosis to occlusion and persistent L stenosis on most recent duplex in 08/2018), 3.7 cm AAA, acute HBV, HTN, HLD, former tobacco use (45 years up to 1ppd at max, quit 10 years ago), and 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 Underwent angiogram on 09/01 but was unable to intervene on occluded R stenosis and ultimately found L side darien more patent than expected and did not intervene and was transferred to ICU as she became more sobwith worsening pulmonary edema. S;No overnight events,still on Nicardipine drip for blood pressure management ,maintaining good UOP and oxygenation is stable.Planning Bypass surgery this afternoon. PHYSICAL EXAM: Intake/Output Summary (Last 24 hours) at 09/07/2018 0958 Last data filed at 09/07/2018 0600 Gross per 24 hour Intake 1593.7 ml Output 2600 ml Net -1006.3 ml Last value Range last 24 hrs Temperature Temp: 37.1 ??C (98.8 ??F) Temp: [36.2 ??C (97.2 ??F)-37.8 ??C (100 ??F)] Heart Rate Heart Rate: 65 Heart Rate: [65-77] Blood Pressure BP: 151/60 BP: (140-173)/(59-122) Respiratory Rate Resp: 15 Resp: [13-22] SpO2 SpO2: 95 % SpO2: [92 %-97 %] Appearance - Awake and alert. Pleasant, interactive. In NAD. Skin - Warm, dry. HEENT - No sclera icterus.On nasal canula -2 lts. Chest - Lungs have clear air entry bilaterally. Heart - S1 and S2. RRR. No MRG. Abd - Soft. Non-tender. Non-distended. Normal BS. Ext - Warm extremities. No peripheral edema. Neuro - Moving extremities without issues. Labs: CBC: Recent Labs 09/07/18 0030 09/06/18 0609/05/18 0150 WBC 11.7* 10.6* 12.0* HGB 11.9 13.2 12.3 PLATELET 223 228 243 Chemistry: Recent Labs 09/07/18 0030 09/06/18 1710 09/06/18 0855 09/06/18 0609/03/18 0655 09/03/18 0035 09/02/18 0329 NA 136 -- 136 140 < > 131* 133* 134* K 4.4 3.3* 2.9* 3.3* < > 5.2* 4.7 4.8 CL 97* -- 96* 96* < > 99 98 98 CO2 27 -- 26 28 < > 19* 20* 20* BUN 39* -- 37* 40* < > 50* 48* 36* CREATININE 2.51* -- 2.34* 2.46* < > 2.80* 2.89* 2.71* GLUCOSE -- -- -- -- -- 140 172 142 < > = values in this interval not displayed. Recent Labs 09/07/18 0030 09/06/18 0855 09/06/18 0600 09/05/18 0150 09/03/18 0035 09/02/18 0329 08/31/18 0015 CALCIUM 8.5 8.3* 8.9 8.5 < > 8.2* 8.5 < > 7.9* MAGNESIUM 0.84 -- 0.88 1.24* < > 0.95 0.97 < > 0.75 PHOS -- -- -- -- -- 4.4 6.2* -- 3.5 < > = values in this interval not displayed. 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) who had recurrent hospital admissions with sob and flash pulmonary edema in the setting of known renal artery stenosis with failed medical treatment .She did underwent angio this admission ,was found that she have complete occlusion of right renal artery and left renal artery is patent .Shewas transferred to ICU after procedure as her respiratory distress worsened and required BIPAP support which improved with lasix and blood pressure is stable on Nicardipine drip and we tried to introduce Captopril slowly this admission.She also underwent functional scan which showed that right kidney is contributing 45% of total kidney function. 1,Renal artery stenosis : - Kidney function is stable with current management ,will hold captopril today as she is going for surgery. - Appreciate vascular plan about renal artery bypass as half of her kidney function is from right kidney and likely this is the source of renin release that is causing flash edema. - Will follow up closely post surgery. - Monitor Is and Os,Daily weight,avoid contrast studies or NSAID's. Thank you for this very interesting consult. We will continue to follow. Please call with any questions. Beba Aaron MD Nephrology Fellow . #[id number]. Associated attestation - Tyron Kemp MD - 09/07/2018 4:53 PM EDT I saw and discussed the patient with the fellow and I agree with the assessment and plan in her note. Nuc med renal scan demonstrated that a sizable portion of global GFR can still be attributed to theright side. Suggested patient has considerable collateralization to the right kidney, however she may be flashing in instances when this collateral flow is compromised. Given clinical course and multiple hospitalizations despite best efforts for medical management agree with plan to proceed with bypass. We will have to watch kidney function closely in the setting and may consider discontinuing captopril so as not to confound GFR in the perioperative period. Dax Sanders MD - 09/07/2018 6:26 AM EDT ICU Blue (#[id number]) Progress Note Patient info: Name: Pretty Harmon : 1950 PCP: Sanjuanita Lee MD PCP phone number: [phone] Date of Admission: 08/29/2018 ( Hospital Day 9 days ) Responsible Attending:Wilman Randolph MD Active Hospital Problems Diagnosis ??? Hypertensive urgency Resolved Hospital Problems No resolved problems to display. ID: Pretty Harmon is a 67 y.o. female w/ PMH of combined systolic and diastolic HF (last EF 54% on 08/30/18), moderate MR, hepatitis B, AAA (3.7 cm), bilateral renal artery stenosis, CKD on HD# 9 for presented to OSH with hypertensive urgency and acute exacerbation of CHF with acute hypoxic resp failure who has now been admitted to the ICU for increased work of breathing and fluid overload in the settingof an GAEL. 24 Hour Events/Subjective: - Central line placed due to poor peripheral access - Nuclear scan showing differential function 45% right kidney and 55% left kidney. - NPO for renal stenting today - Type and Screen obtained in AM - Looking forward to her procedure today. Has no new concerns at this time. Infusions: Continuous Infusions: ??? niCARdipine 2.5 mg/hr (09/07/18 0400) Objective: Vitals Last value Range last 24 hrs Temperature Temp: 37 ??C (98.6 ??F) Temp: [36.2 ??C (97.2 ??F)-37.8 ??C (100 ??F)] Heart Rate Heart Rate: 74 Heart Rate: [66-77] Blood Pressure BP: 159/69 BP: (140-173)/(59-122) Art Line BP BP (Arterial Line): -- MAP (NBP): [81 mmHg-127 mmHg] Respiratory Rate Resp: 13 Resp: [13-22] SpO2 SpO2: 95 % SpO2: [92 %-98 %] Oxygen Delivery Oxygen Therapy O2 Device: Nasal cannula O2 Flow Rate (L/min): 3 L/min FiO2 (%): 3 % Intake/Output Summary (Last 24 hours) at 09/07/2018 0626 Last data filed at 09/07/2018 0400 Gross per 24 hour Intake 1597.7 ml Output 1900 ml Net -302.3 ml Patient Vitals for the past 168 hrs: Weight 09/06/18 0200 42.9 kg (94 lb 9.2 oz) 09/05/18 06 46.3 kg (102 lb 1.2 oz) 09/04/18 0220 49.3 kg (108 lb 11 oz) 09/03/18 0400 51 kg (112 lb 7 oz) 09/02/18 06 48.7 kg (107 lb 5.8 oz) 09/01/18 06 47.4 kg (104 lb 8 oz) Admit wt: 47.4 kg Physical Exam: General: thin appearing woman lying in bed in NAD HEENT: EOMI, PERRL, anicteric sclera. Neck: Supple with normal ROM. Lymph: No obvious cervical, axillary, epitrochlear or inguinal LAD Cardiac: Normal S1 and S2, Regular rate and rhythm; JVP present Respiratory: Nonlabored. Faint bilateral rales noted at lung bases Abd: +BS; soft, non-tender, non-distended, no obvious masses. Ext: No peripheral edema Neuro: Alert and orientated, no-focal deficits?? Lines/Drains/Airways Peripheral IV Line - Single Lumen 08/29 Incision 09/01/18 1535 Right groin Labs: Recent Labs 09/07/18 0030 09/06/18 0600 09/05/18 0150 WBC 11.7* 10.6* 12.0* HGB 11.9 13.2 12.3 HCT 34.4* 38.1 34.1* PLATELET 223 228 243 Recent Labs 09/07/18 0030 09/06/18 1710 09/06/18 0855 09/06/18 0600 09/05/18 0150 NA 136 -- 136 140 -- 137 K 4.4 3.3* 2.9* 3.3* < > Not Perf CL 97* -- 96* 96* -- 101 CO2 27 -- 26 28 -- 24 BUN 39* -- 37* 40* -- 44* CREATININE 2.51* -- 2.34* 2.46* -- 2.50* CALCIUM 8.5 -- 8.3* 8.9 -- 8.5 MAGNESIUM 0.84 -- -- 0.88 -- 1.24* < > = values in this interval not displayed. Pertinent radiology/diagnostic studies: None new Medications Scheduled Meds: ??? furosemide 100 mg Intravenous Once ??? potassium chloride 40 mEq Oral Once ??? captopril 12.5 mg Oral Q8H WILFRED ??? melatonin 3 mg Oral Nightly ??? aspirin 81 mg Oral Daily ??? atorvastatin 40 mg Oral QPM ??? gabapentin 800 mg Oral Nightly ??? levothyroxine 37.5 mcg Oral QAM ??? chlorhexidine 15 mL Oral BID ??? sodium chloride 0.9 % 5 mL Intravenous BID ??? carvedilol 37.5 mg Oral BID WC Continuous Infusions: ??? niCARdipine 2.5 mg/hr (09/07/18 0400) PRN Meds:.potassium chloride OR potassium chloride, potassium chloride in water OR potassiumchloride in water OR potassium chloride in water, calcium carbonate, BUpivacaine (PF), lidocaine, iodixanol, ipratropium- albuterol, HYDROmorphone, sodium chloride 0.9 %, lidocaine, acetaminophen ASSESSMENT/PLAN: Pretty Harmon is a 67 y.o. female who is in the ICU for acute hypoxic respiratory failure in the setting of hypertensive emergency secondary to bilateral renal artery stenosis. Oxygen requirements remainunchanged with 3L NC and patient continues to require nicardipine to maintain SBP <170. Will holdoff on further diuresis or increasing captopril dosing at this time in anticipation of vascular stenting later today. Plan for Today Neuro - NTD Cardiovascular #Acute on chronic HF (EF 54% as of 08/30/18): - hold off on diuresis Pulmonary #Acute Respiratory Failure: Respiratory status remains stable since transitioning from HFNC to NC - Ct to titrate oxygen - If concerned for flash pulmonary edema, start nitro drip Renal/Fluid/Electrolytes #Hypertensive urgency: Blood pressure remains elevated despite diuresis and increasing captopril dose, which remains dependent on Nicardipine drip to maintain SBP <170. Will hold medication dose changes at this time in light of renal stenting later this afternoon. #Bilateral renal artery stenosis: NM scan 09/06 showing differential function of 45% right kidney, 55% left kidney. - Hold amlodipine - hold BID diuresis in light of poor PO intake. Target even to -500cc - Continue BB - ct IV Nicardipine (target SBP <170) - Nuclear Renal Cortical Scan 09/07 - Appreciate vascular surgery consultation #GAEL??on Stage 3 CKD: - Appreciate nephrology recommendations ?? Gastrointestinal/Metabolic/Nutrition - NTD Hematology/Infection - NTD Endocrine #Hypothyroidism - Continued levothyroxine ?? #Bundle: - Diet: Renal Diet - DVT PPX: Heparin - GI PPX: Pantoprazole - Activity: As tolerated - CODE STATUS: Full Code Dax Sanders MD, PGY-1 09/07/2018 Blue Team #[id number] Associated attestation - Anurag Correa MD - 09/07/2018 11:09 AM EDT MICU ATTENDING ATTESTATION NOTE The patient was seen in conjunction with Dr. Sanders, the resident physician and the MICU Blue team. I have independently performed the burgess portions of the history and physical exam. I have reviewed thenursing notes, vital signs, and all diagnostic studies personally including labs, imaging studies and EKGs. I have discussed the details of the case with the resident and agree with the assessment and plan as described in the resident note above unless noted otherwise below. Renal perfusion scan shows low flow state, R worse than L. Will undergo surgical stenting procedure later today to revascularize. Will likely transition care to SICU afterwards. IS PATIENT CRITICALLY ILL ? Is there a high potential of sudden, clinically significant, or life threatening deterioration? Yes Is there a need for direct personal assessment and management to treat/prevent multiple vital organfailure/deterioration? Yes If this patient is not critically ill, I certify the patient requires continued in-patient hospitalization for [] PATIENT IS CRITICALLY ILL WITH THESE DIAGNOSES BEING MANAGED BY [facility] TEAM: Hypertension/Hypertensive Emergency Other renal artery stenosis I personally performed 30 minutes of aggregate critical care time exclusive of procedures and teaching. This includes time spent during direct patient evaluation and reassessment, interpreting diagnostic tests, directing life and/or organ supporting interventions and documentation on the unit. MD Marlyn Tovar, Leah Scott MD - 09/06/2018 6:18 PM EDT Vascular surgery consult service Pretty Harmon is a 67 y.o. female with right renal artery occlusion who presents w flash pulm edema - several episodes over past 6 months. Int: Off high flow o2 Cr stable at 2.5 Uptitrating captopril and amlodipine w improved BP control Nuc med scan showed 45% function from R kidney, 55% from L kidney Scheduled for surgery tomorrow - R iliac to R renal bypass GSV adequate on R - diam 3.2mm O: Temp: [36.2 ??C (97.2 ??F)-37.5 ??C (99.5 ??F)] Heart Rate: [72-76] Resp: [14-20] BP: (157-173)/(66-80) SpO2: [94 %-95 %] Heart Rate from SpO2: [72 bpm-78 bpm] I/O last 3 completed shifts: In: 965.4 [P.O.:830; I.V.:135.4] Out: 6375 [Urine:6375] I/O this shift: In: 922 [P.O.:780; I.V.:142] Out: 400 [Urine:400] Physical Exam General: NAD, resting comfortably, thin HEENT: PERRL, anicteric sclerae CVS: Regular rate, no murmurs rubs or gallops Pulm: +wheeze Abd: soft, non tender, non distended Ext: warm Neuro: CN 2-12 grossly intact, nonfocal, moving all extremities. Vascular Exam: Strong palp R femoral Unable to palp L femoral Lab Results Component Value Date WBC 10.6 (H) 09/06/2018 HGB 13.2 09/06/2018 HCT 38.1 09/06/2018 MCV 86.0 09/06/2018 PLATELET 228 09/06/2018 Lab Results Component Value Date CREATININE 2.34 (H) 09/06/2018 R GSV Duplex Right ?Diameter (mm) ?? GSV, Near SFJ ?6.5 ?? GSV, Proximal Thigh ?3.2 ?? GSV, Mid Thigh ? 3.2 ?? GSV, Distal Thigh ?3.2 ?? GSV, ??Knee ? 3.2 ?? GSV Prox Calf ?1.9 ?? GSV, Mid Calf ?2.0 ?? GSV, Distal Calf ? 1.2 ? Nuc Med Scan FINDINGS: Homogeneous tracer uptake in all regions of both kidneys. The right kidney appears slightly smaller than the left kidney. ?? Quantitative Analysis: The split functional analysis: Right 45%; Left 55%. ?? Incidental finding of diffuse soft tissue background activity, consistent with some degree of bilateral renal insufficiency. ?? IMPRESSION Differential function is 45% right kidney, 55% left kidney. ?? AP Pretty Harmon is a 67 y.o. female w multiple admissions for flash pulm edema in setting of proximalocclusion of R renal artery. Unsuccessful last week in crossing R renal occlusion. Nuc med scan shows 45% Renal function is dependent on R renal. Considering recurrent episodes flash pulm edema pt willrequire intervention - nephrectomy vs bypass. With renal function still dependent on R kidney, we feel in hopes of preventing pt from needing HD, bypass would have better outcome from standpoint of herrenal function. Plan for R external iliac to R renal bypass with R greater saphenous vein tomorrow afternoon. Pls have pt NPO at midnight w active type and screen. Plan for pt to return to ICU post op. Leah Cline MD/SANDY, PGY-5 Section of Vascular Surgery, Pager [phone] Meera Taylor RCP - 09/06/2018 2:40 PM EDT 09/06/18 1000 Oxygen Therapy O2 Device NC O2 Flow Rate (L/min) 2 L/min SpO2 95 % Resp 22 pt remains on 2L sheri well. Pt has a prn duoneb treatment that has not been needed this shift Will continue to monitor pt 09/03 cxr IMPRESSION Pulmonary vascular congestion and interstitial edema. Pleural effusions and bibasilar atelectasis. Majo De Jesus RN - 09/06/2018 12:30 PM EDT OUTCOME EVALUATION NOTE: OUTCOME SUMMARY: Patient A&OX4, Hypertensive, Afebrile, NSR. Remains on 2-3L NC to maintain SPO2>92%. Nicardipine gtt turned back on at approximately 0900. Patient at goal with 2.5-5mg of Nicardipine/hr. Adequate appetite. Patient went for a renal nuclear medicine scan, see results review. Right triple lumen IJ placed at bedside this shift 2/2 poor peripheral access 2/2 to phlebitis on multiple veins related to Nicardipine gtt. Patient tolerated procedure well. NPO @ 0000 for renal vascular surgery tomorrow AM. No other acute events, will CTM. PLAN MOVING FORWARD: Maintain goal hemodynamics Resp status Skin surveillance Support and comfort INDIVIDUALIZED FALL PREVENTION INTERVENTIONS: Call carmona in reach, patient reliably summons assistance Patient-specific fall risk factors per assessment: [current deficits]: Unfamiliar environment, lines, cords Assistance [level of assistance required for transfers and ambulation]: SBA to BS commode Supervision [direct monitoring required during toileting and ADLs]: Eyes on Surveillance [continuous indirect monitoring]: Room near nurses station, purposeful rounding Patient-specific fall prevention interventions for sensory deficits provided, if applicable: [X] N/A CPG GOAL OUTCOME EVALUATION: eba Goldsmith MD - 09/06/2018 9:55 AM EDT NEPHROLOGY PROGRESS NOTE PATIENT: Pretty Harmon : 1950 REASON FOR CONSULTATION: GAEL in the setting of hypertensive urgency and contrast exposure in attempted intervention for severe bilateral renal artery stenosis (70%) ID:: This is a 67 year old woman with HFpEF (EF 54% on 08/2018 TTE), bilateral renal artery stenosis (>60% occlusion bilaterally in 01/2018, progression of R stenosis to occlusion and persistent L stenosis on most recent duplex in 08/2018), 3.7 cm AAA, acute HBV, HTN, HLD, former tobacco use (45 years up to 1ppd at max, quit 10 years ago), and 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 Underwent angiogram on 09/01 but was unable to intervene on occluded R stenosis and ultimately found L side darien more patent than expected and did not intervene and was transferred to ICU as she became more sobwith worsening pulmonary edema. S;Oxygenation is much better ,have 4 lts of UOP in last 24 hrs with 2 doses of lasix,blood pressuresare still running high on low dose nicardipine drip.Discussed about the ongoing plan for surgery as per vascular . PHYSICAL EXAM: Intake/Output Summary (Last 24 hours) at 09/06/2018 0955 Last data filed at 09/06/2018 0825 Gross per 24 hour Intake 610.4 ml Output 4075 ml Net -3464.6 ml Last value Range last 24 hrs Temperature Temp: 37.3 ??C (99.1 ??F) Temp: [36.6 ??C (97.9 ??F)-37.4 ??C (99.3 ??F)] Heart Rate Heart Rate: 66 Heart Rate: [66-78] Blood Pressure BP: 166/70 BP: (136-178)/(54-92) Respiratory Rate Resp: 14 Resp: [9-15] SpO2 SpO2: 98 % SpO2: [91 %-98 %] Appearance - Awake and alert. Pleasant, interactive. In NAD. Skin - Warm, dry. HEENT - No sclera icterus.On nasal canula -2 lts. Chest - Lungs have clear air entry bilaterally. Heart - S1 and S2. RRR. No MRG. Abd - Soft. Non-tender. Non-distended. Normal BS. Ext - Warm extremities. No peripheral edema. Neuro - Moving extremities without issues. Labs: CBC: Recent Labs 09/06/18 0609/05/18 0150 09/04/18 0225 WBC 10.6* 12.0* 13.5* HGB 13.2 12.3 12.0 PLATELET 228 243 221 Chemistry: Recent Labs 09/06/18 0609/05/18 0254 09/05/18 0150 09/04/18 1320 09/03/18 0655 09/03/18 0035 09/02/18 0329 NA 140 -- 137 131* < > 131* 133* 134* K 3.3* 4.9 Not Perf 3.2* < > 5.2* 4.7 4.8 CL 96* -- 101 91* < > 99 98 98 CO2 28 -- 24 23 < > 19* 20* 20* BUN 40* -- 44* 47* < > 50* 48* 36* CREATININE 2.46* -- 2.50* 2.45* < > 2.80* 2.89* 2.71* GLUCOSE -- -- -- -- -- 140 172 142 < > = values in this interval not displayed. Recent Labs 09/06/18 0600 09/05/18 0150 09/04/18 1320 09/04/18 0225 09/03/18 0035 09/02/18 0329 08/31/18 0015 CALCIUM 8.9 8.5 8.5 8.7 < > 8.2* 8.5 < > 7.9* MAGNESIUM 0.88 1.24* -- 0.92 < > 0.95 0.97 < > 0.75 PHOS -- -- -- -- -- 4.4 6.2* -- 3.5 < > = values in this interval not displayed. 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 1,Renal artery stenosis : - Kidney function is stable with introduction of captopril ,will plan to continue to up titrate on Captopril and add Amlodipine to help in better pressure control and wean off nicardipine drip. - Renal functional scan is planned today to evaluate the functional status of right kidney . - Vascular planning bypass to right kidney as RI are appreciable and they think that it is salvageable. - Hold Lasix and dose according to vascular congestion with a repeat CXR. - Monitor Is and Os,Daily weight,avoid contrast studies or NSAID's. Thank you for this very interesting consult. We will continue to follow. Please call with any questions. Beba Aaron MD Nephrology Fellow . #[id number]. Associated attestation - Tyron Kemp MD - 09/06/2018 3:15 PM EDT I saw and discussed the patient with the fellow and agree with the assessment and plan in her note. Also discussed patient with vascular surgery. Given apparent intraparenchymal flow within right kidney they are planning surgical bypass to the right side. Patient remains with requirement of nicardipine despite up titration and captopril. We will further increase captopril and add amlodipine 5 mg in attempt to wean off nicardipine. We will continue to follow closely. Dax Sanders MD - 09/06/2018 6:33 AM EDT ICU Blue (#[id number]) Progress Note Patient info: Name: Pretty Harmon : 1950 PCP: Sanjuanita Lee MD PCP phone number: [phone] Date of Admission: 08/29/2018 ( Hospital Day 8 days ) Responsible Attending:Wilman Randolph MD Active Hospital Problems Diagnosis ??? Hypertensive urgency Resolved Hospital Problems No resolved problems to display. ID: Pretty Harmon is a 67 y.o. female w/ PMH of combined systolic and diastolic HF (last EF 54% on 08/30/18), moderate MR, hepatitis B, AAA (3.7 cm), bilateral renal artery stenosis, CKD on HD# 8 for presented to OSH with hypertensive urgency and acute exacerbation of CHF with acute hypoxic resp failure who has now been admitted to the ICU for increased work of breathing and fluid overload in the settingof an GAEL. 24 Hour Events/Subjective: - Captopril increased to 12.5mg - transitioned to 4L NC, did not require NIV overnight - ct'd lasix 80mg BID (-4L urine output) - Cardene restarted at 0300 (SBP 173), turned off at 0600 (SBP 148) ??- No new subjective concerns. States she is ready to have her renal scan later today. Denies fevers, chest/abd pain. Infusions: Continuous Infusions: ??? niCARdipine Stopped (09/06/18 0600) Objective: Vitals Last value Range last 24 hrs Temperature Temp: 37.4 ??C (99.3 ??F) Temp: [36.6 ??C (97.9 ??F)-37.4 ??C (99.3 ??F)] Heart Rate Heart Rate: 76 Heart Rate: [67-78] Blood Pressure BP: 148/60 BP: (136-178)/(54-92) Art Line BP BP (Arterial Line): -- MAP (NBP): [76 mmHg-103 mmHg] Respiratory Rate Resp: 12 Resp: [9-15] SpO2 SpO2: 92 % SpO2: [91 %-97 %] Oxygen Delivery Oxygen Therapy O2 Device: Nasal cannula O2 Flow Rate (L/min): 4 L/min FiO2 (%): 100 % Intake/Output Summary (Last 24 hours) at 09/06/2018 0633 Last data filed at 09/06/2018 06 Gross per 24 hour Intake 370.4 ml Output 4075 ml Net -3704.6 ml Patient Vitals for the past 168 hrs: Weight 09/05/18 06 46.3 kg (102 lb 1.2 oz) 09/04/18 0220 49.3 kg (108 lb 11 oz) 09/03/18 0400 51 kg (112 lb 7 oz) 09/02/18 06 48.7 kg (107 lb 5.8 oz) 09/01/18 06 47.4 kg (104 lb 8 oz) 08/31/18 06 47 kg (103 lb 9.9 oz) Admit wt: 47.4 kg Physical Exam: General: thin appearing woman lying in bed in NAD HEENT: EOMI, PERRL, anicteric sclera. Neck: Supple with normal ROM. Lymph: No obvious cervical, axillary, epitrochlear or inguinal LAD Cardiac: Normal S1 and S2, Regular rate and rhythm; JVP present Respiratory: Nonlabored. Faint bilateral rales noted at lung bases Abd: +BS; soft, non-tender, non-distended, no obvious masses. Ext: No peripheral edema Neuro: Alert and orientated, no-focal deficits?? Lines/Drains/Airways Peripheral IV Line - Single Lumen 08/29 Incision 09/01/18 1535 Right groin Labs: Recent Labs 09/06/18 0600 09/05/18 0150 09/04/18 0225 WBC 10.6* 12.0* 13.5* HGB 13.2 12.3 12.0 HCT 38.1 34.1* 34.4* PLATELET 228 243 221 Recent Labs 09/05/18 0254 09/05/18 0150 09/04/18 1320 09/04/18 0225 09/03/18195609/03/18 0655 NA -- 137 131* 137 135 131* K 4.9 Not Perf 3.2* 3.6 4.0 5.2* CL -- 101 91* 98 97* 99 CO2 -- 24 23 23 22 19* BUN -- 44* 47* 53* 51* 50* CREATININE -- 2.50* 2.45* 2.73* 2.76* 2.80* GLUCOSE -- -- -- -- -- 140 CALCIUM -- 8.5 8.5 8.7 8.5 8.4* MAGNESIUM -- 1.24* -- 0.92 0.94 -- Pertinent radiology/diagnostic studies: None new Medications Scheduled Meds: ??? captopril 12.5 mg Oral Q8H WILFRED ??? heparin (Porcine) 5,000 Units Subcutaneous 2 times per day ??? melatonin 3 mg Oral Nightly ??? aspirin 81 mg Oral Daily ??? atorvastatin 40 mg Oral QPM ??? gabapentin 800 mg Oral Nightly ??? levothyroxine 37.5 mcg Oral QAM ??? chlorhexidine 15 mL Oral BID ??? sodium chloride 0.9 % 5 mL Intravenous BID ??? carvedilol 37.5 mg Oral BID WC Continuous Infusions: ??? niCARdipine Stopped (09/06/18 0600) PRN Meds:.BUpivacaine (PF), lidocaine, iodixanol, ipratropium-albuterol, HYDROmorphone, sodium chloride 0.9 %, lidocaine, acetaminophen ASSESSMENT/PLAN: Pretty Harmon is a 67 y.o. female who is in the ICU for acute hypoxic respiratory failure in the setting of hypertensive emergency secondary to bilateral renal artery stenosis. Oxygen requirements have remained stable since transition to [facility] from [facility]. Thoracic surgery currently considering intervention tomorrow pending results of nuclear scan. As such, will hold off on increasing captopril dose for breakthrough HTN and relying IV nicardipine to bridge her to procedure. Plan for Today Neuro - NTD Cardiovascular #Acute on chronic HF (EF 54% as of 08/30/18): - Workup for surgical intervention pending vascular recommendations. Pulmonary #Acute Respiratory Failure: Respiratory status remains stable since transitioning from HFNC to MD - Ct to titrate oxygen - If concerned for flash pulmonary edema, start nitro drip Renal/Fluid/Electrolytes #Hypertensive urgency: Blood pressure remains elevated despite diuresis and increasing captopril dose, which has intermittently required IV Nicardipine to maintain SBP <170. In light of possible surgical intervention tomorrow, will hold off on increasing captopril at this time and will use Nicardipine as bridge through surgery. #Bilateral renal artery stenosis: NM scan today to lateralize GFR,to determine emobolization vs chemical nephrectomy.May also guide vascular intervention - Hold amlodipine - hold BID diuresis in light of poor PO intake. Target even to -500cc - Continue BB - ct IV Nicardipine (target SBP <170) - Carotid duplex ordered - Nuclear Renal Cortical Scan today - Appreciate vascular surgery consultation #GAEL??on Stage 3 CKD: - Appreciate nephrology recommendations ?? Gastrointestinal/Metabolic/Nutrition - NTD Hematology/Infection - NTD Endocrine #Hypothyroidism - Continued levothyroxine ?? #Bundle: - Diet: Renal Diet - DVT PPX: Heparin - GI PPX: Pantoprazole - Activity: As tolerated - CODE STATUS: Full Code Dax Sanders MD, PGY-1 09/06/2018 Blue Team #[id number] Associated attestation - Anurag Correa MD - 09/06/2018 12:42 PM EDT MICU ATTENDING ATTESTATION NOTE The patient was seen in conjunction with Dr. Sanders, the resident physician and the MICU Blue team. I have independently performed the burgess portions of the history and physical exam. I have reviewed thenursing notes, vital signs, and all diagnostic studies personally including labs, imaging studies and EKGs. I have discussed the details of the case with the resident and agree with the assessment and plan as described in the resident note above unless noted otherwise below. Assumed care on rounds this morning. The patient has been hemodynamically stable overnight and required intermittent and low-dose nicardipine infusion overnight to keep systolic blood pressures below 170. Patient was assessed by vascular surgery on rounds this morning and deemed a serious candidate for renal bypass surgery. Will await nuclear med scanning this morning to assess whether the patient has some degree of collateralized/low flow renal perfusion versus no perfusion. If there is a low flow state in the patient will be deemed a candidate for revascularization via bypass procedure. For now we will continue to use IV nicardipine as opposed to oral captopril, amlodipine therapy given potential for surgery in the next 24 hours. Patient has poor access and will need to work on getting temporary central access as the patient is not deemed to be a candidate for PICC line via nephrology owing toCKD. IS PATIENT CRITICALLY ILL ? Is there a high potential of sudden, clinically significant, or life threatening deterioration? Yes Is there a need for direct personal assessment and management to treat/prevent multiple vital organfailure/deterioration? Yes If this patient is not critically ill, I certify the patient requires continued in-patient hospitalization for [] PATIENT IS CRITICALLY ILL WITH THESE DIAGNOSES BEING MANAGED BY [facility] TEAM: Hypertension/Hypertensive Emergency Renal Disease/Failure Acute I personally performed 30 minutes of aggregate critical care time exclusive of procedures and teaching. This includes time spent during direct patient evaluation and reassessment, interpreting diagnostic tests, directing life and/or organ supporting interventions and documentation on the unit. MD Hakan Tovar Cathy, RCP - 09/06/2018 6:08 AM EDT Respiratory Care Pt remained on 4 liter cannula overnight. Pt did not require NIV overnight. Alvaro Prieto RCP - 09/05/2018 4:32 PM EDT Transitioned pt off of HFNC to NC at 4 L/min. No negative effects noted. No acute changes to pt today. Respirations unlabored, Chest rise equal and bilateral. Beba Aaron MD - 09/05/2018 11:34 AM EDT NEPHROLOGY PROGRESS NOTE PATIENT: Pretty Harmon : 1950 REASON FOR CONSULTATION: GAEL in the setting of hypertensive urgency and contrast exposure in attempted intervention for severe bilateral renal artery stenosis (70%) ID:: This is a 67 year old woman with HFpEF (EF 54% on 08/2018 TTE), bilateral renal artery stenosis (>60% occlusion bilaterally in 01/2018, progression of R stenosis to occlusion and persistent L stenosis on most recent duplex in 08/2018), 3.7 cm AAA, acute HBV, HTN, HLD, former tobacco use (45 years up to 1ppd at max, quit 10 years ago), and 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 Underwent angiogram on 09/01 but was unable to intervene on occluded R stenosis and ultimately found L side darien more patent than expected and did not intervene and was transferred to ICU as she became more sobwith worsening pulmonary edema. S;Was still on high flow but have very good response to lasix with 3.2 lts UOP ,creatinine is stablevs mild up trend .Started on captopril yesterday and trying to down trend on nifedipine drip , PHYSICAL EXAM: Intake/Output Summary (Last 24 hours) at 09/05/2018 1134 Last data filed at 09/05/2018 0600 Gross per 24 hour Intake 730 ml Output 2650 ml Net -1920 ml Last value Range last 24 hrs Temperature Temp: 36.7 ??C (98.1 ??F) Temp: [36.5 ??C (97.7 ??F)-36.9 ??C (98.4 ??F)] Heart Rate Heart Rate: 76 Heart Rate: [67-80] Blood Pressure BP: 178/78 BP: (137-178)/(55-87) Respiratory Rate Resp: 12 Resp: [10-15] SpO2 SpO2: 91 % SpO2: [91 %-95 %] Appearance - Awake and alert. Pleasant, interactive. In NAD. Skin - Warm, dry. HEENT - No sclera icterus.On high flow Chest - Lungs have bilateral crackles Heart - S1 and S2. RRR. No MRG. Abd - Soft. Non-tender. Non-distended. Normal BS. Ext - Warm extremities. No peripheral edema. Neuro - Moving extremities without issues. Labs: CBC: Recent Labs 09/05/18 0150 09/04/18 0225 09/02/18 1407 WBC 12.0* 13.5* 9.7* HGB 12.3 12.0 11.8 PLATELET 243 221 229 Chemistry: Recent Labs 09/05/18 0254 09/05/18 0150 09/04/18 1320 09/04/18 0225 09/03/18 0655 09/03/18 0035 09/02/18 0329 NA -- 137 131* 137 < > 131* 133* 134* K 4.9 Not Perf 3.2* 3.6 < > 5.2* 4.7 4.8 CL -- 101 91* 98 < > 99 98 98 CO2 -- 24 23 23 < > 19* 20* 20* BUN -- 44* 47* 53* < > 50* 48* 36* CREATININE -- 2.50* 2.45* 2.73* < > 2.80* 2.89* 2.71* GLUCOSE -- -- -- -- -- 140 172 142 < > = values in this interval not displayed. Recent Labs 09/05/18 0150 09/04/18 1320 09/04/18 0225 09/03/18 1957 09/03/18 0035 09/02/18 0329 08/31/18 0015 CALCIUM 8.5 8.5 8.7 8.5 < > 8.2* 8.5 < > 7.9* MAGNESIUM 1.24* -- 0.92 0.94 -- 0.95 0.97 < > 0.75 PHOS -- -- -- -- -- 4.4 6.2* -- 3.5 < > = values in this interval not displayed. 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) who had recurrent hospital admissions with sob and flash pulmonary edema in the setting of known renal artery stenosis with failed medical treatment .She did underwent angio this admission ,was found that she have complete occlusion of right renal artery and left renal artery is patent .Shewas transferred to ICU after procedure as her respiratory distress worsened and required BIPAP suport 1,Renal artery stenosis : - Unable to stent the right renal artery which might be the source of excess renin causing hypertension /pulmonray edema - Kidney function is stable with introduction of captopril ,will plan to up titrate on captopril to 12.5 q 8 hry ,watch kidney function closely and try to stop vs down titrate on Nifedipine drip. - Renal functional scan is pending for Thursday to evaluate function of right kidney to consider embolization vs chemical nephrectomy to prevent further episodes of hypertensive emergencies. - Will get more input on angio about microaneurysms and vascular surgery plans going forward ,but seems she had collaterals to right kidney . - Continue with Lasix 80 mg IV BID to maintain stable respiratory status with decent UOP ,worth considering CXR before further diuresing .Watch her kidney function closely and there is no indication for HD. - Monitor Is and Os,Daily weight,avoid contrast studies or NSAID's. Thank you for this very interesting consult. We will continue to follow. Please call with any questions. Beba Aaron MD Nephrology Fellow . #[id number]. Associated attestation - Tyron Kemp MD - 09/05/2018 4:34 PM EDT I saw and discussed the patient with the fellow and I agree with the assessment and plan in her note. Kidney function remains more or less stable with introduction of captopril. Blood pressure still requiring occasional nicardipine for control. Patient is diuresing well in response to furosemide and would try to reserve this therapy only if concerned about pulmonary edema so is not to confound renalfunction labs. Anticipate NM scan tomorrow to lateralize GFR and decide whether further interventionwarranted. Would favor medical management if able to wean off IV infusion. Wilman Randolph MD - 09/05/2018 8:41 AM EDT MICU STAFF PROGRESS NOTE Critical Care Medicine Author: Wilman Randolph MD Patient seen and examined on critical care rounds. Brief HPI: Pretty Harmon is a 67 y.o. woman with renal artery stenosis, reduced systolic function and multiple admissions for acute pulmonary edema. To the ICU overnight with acute hypoxic respiratory failure in the setting of volume overload and hypertension. Active Problem and Important Diagnoses: ?? Acute hypoxic respiratory failure ?? Acute pulmonary edema (flash edema/SCAPE) ?? Acute on chronic diastolic failure (LVEF 54%, E/e' 19-23) ?? Mitral regurgitation, mild ?? Renal artery stenosis ?? Renovascular hypertension with hypertensive urgency ?? GAEL on CKD ASSESSMENT, MANAGEMENT, and DECISION MAKING: Was briefly on nicardipine overnight. Continue captopril per nephrology, but increase dose. Keep in ICU given nicardipine need. Good diuresis again. Renal function stable. Continue IV furosemide. Goal negative 1 to 2 L. Appreciate nephrology recs see note from 09/04 for over view. Renal scan planned for tomorrow. EXAM: Physical Exam Constitutional: She is oriented to person, place, and time. She appears well- developed. She is cooperative. She appears distressed. Neck: JVD (hand veins collapse at ~20 cm above phleobstatic axis) present. Cardiovascular: Normal rate and regular rhythm. Murmur heard. Pulmonary/Chest: Crackes to inferior 1/3 of chest, improved Neurological: She is oriented to person, place, and time. Non-focal Skin: Skin is warm and dry. Last value Range last 24 hrs Temperature Temp: 36.9 ??C (98.4 ??F) Temp: [36.5 ??C (97.7 ??F)-36.9 ??C (98.4 ??F)] Heart Rate Heart Rate: 67 Heart Rate: [67-80] Blood Pressure BP: 170/80 BP: (137-177)/(55-87) Respiratory Rate Resp: 12 Resp: [10-15] SpO2 SpO2: 93 % SpO2: [91 %-96 %] Art BP BP (Arterial Line): -- Last Ht 09/03/18 154.9 cm (5' 0.98) Last Wt 09/05/18 46.3 kg (102 lb 1.2 oz) Body mass index is 19.3 kg/m??. IS PATIENT CRITICALLY ILL ? Is there a high potential of sudden, clinically significant, or life threatening deterioration? Yes Is there a need for direct personal assessment and management to treat/prevent multiple vital organfailure/deterioration? Yes If this patient is not critically ill, I certify the patient requires continued in-patient hospitalization for: Not applicable (N/A) PATIENT IS CRITICALLY ILL WITH THESE DIAGNOSES BEING MANAGED BY [facility] TEAM: Hypertension/Hypertensive Urgency Respiratory Failure Acute with hypoxia I personally performed 25 minutes of aggregate critical care time exclusive of procedures and teaching. This includes time spent during direct patient evaluation and reassessment, interpreting diagnostic tests, directing life and/or organ supporting interventions and documentation on the unit. Wilman Randolph MD, PhD 09/05/2018 Dax Sanders MD - 09/05/2018 6:47 AM EDT ICU Blue (#[id number]) Progress Note Patient info: Name: Pretty Harmon : 1950 PCP: Sanjuanita Lee MD PCP phone number: [phone] Date of Admission: 08/29/2018 ( Hospital Day 7 days ) Responsible Attending:Wilman Randolph MD Active Hospital Problems Diagnosis ??? Hypertensive urgency Resolved Hospital Problems No resolved problems to display. ID: Pretty Harmon is a 67 y.o. female w/ PMH of combined systolic and diastolic HF (last EF 54% on 08/30/18), moderate MR, hepatitis B, AAA (3.7 cm), bilateral renal artery stenosis, CKD on HD# 7 for presented to OSH with hypertensive urgency and acute exacerbation of CHF with acute hypoxic resp failure who has now been admitted to the ICU for increased work of breathing and fluid overload in the settingof an GAEL. 24 Hour Events/Subjective: - Lasix held - restarted on nicardipine gtt; run briefly to keep BP <170. Received dilaudid x1 for SOB - st'd captopril yesterday - NAEO - Remains on HFNC for increased WOB ?? Settings: O2 Device: High flow nasal cannula O2 Flow Rate (L/min): 35 L/min FiO2 (%): 50 % ?? Infusions: Continuous Infusions: ??? niCARdipine Stopped (09/05/18 0500) Objective: Vitals Last value Range last 24 hrs Temperature Temp: 36.9 ??C (98.4 ??F) Temp: [36.5 ??C (97.7 ??F)-36.9 ??C (98.4 ??F)] Heart Rate Heart Rate: 67 Heart Rate: [67-80] Blood Pressure BP: 170/80 BP: (137-177)/(55-87) Art Line BP BP (Arterial Line): -- MAP (NBP): [74 mmHg-108 mmHg] Respiratory Rate Resp: 12 Resp: [10-15] SpO2 SpO2: 93 % SpO2: [91 %-96 %] Oxygen Delivery Oxygen Therapy O2 Device: High flow nasal cannula O2 Flow Rate (L/min): 35 L/min FiO2 (%): 50 % Intake/Output Summary (Last 24 hours) at 09/05/2018 0647 Last data filed at 09/05/2018 0600 Gross per 24 hour Intake 730 ml Output 3200 ml Net -2470 ml Patient Vitals for the past 168 hrs: Weight 09/05/18 0600 46.3 kg (102 lb 1.2 oz) 09/04/18 0220 49.3 kg (108 lb 11 oz) 09/03/18 0400 51 kg (112 lb 7 oz) 09/02/18 0600 48.7 kg (107 lb 5.8 oz) 09/01/18 0600 47.4 kg (104 lb 8 oz) 08/31/18 0600 47 kg (103 lb 9.9 oz) 08/29/18 1832 47.4 kg (104 lb 8 oz) 08/29/18 1827 47.4 kg (104 lb 8 oz) Admit wt: 47.4 kg Physical Exam: General: WDWN woman lying in bed in NAD HEENT: EOMI, PERRL, anicteric sclera. Neck: Supple with normal ROM. Lymph: No obvious cervical, axillary, epitrochlear or inguinal LAD Cardiac: Normal S1 and S2, Regular rate and rhythm; JVP present Respiratory: Nonlabored. Bilateral rales noted at lung bases Abd: +BS; soft, non-tender, non-distended, no obvious masses. Ext: No peripheral edema Neuro: Alert and orientated, no-focal deficits?? Lines/Drains/Airways Peripheral IV Line - Single Lumen 08/29 Incision 09/01/18 1535 Right groin Labs: Recent Labs 09/05/18 0150 09/04/18 0225 09/02/18 1407 WBC 12.0* 13.5* 9.7* HGB 12.3 12.0 11.8 HCT 34.1* 34.4* 33.5* PLATELET 243 221 229 Recent Labs 09/05/18 0254 09/05/18 0150 09/04/18 1320 09/04/18 0225 09/03/18 1957 09/03/18 0655 09/03/18 0035 NA -- 137 131* 137 135 131* 133* K 4.9 Not Perf 3.2* 3.6 4.0 5.2* 4.7 CL -- 101 91* 98 97* 99 98 CO2 -- 24 23 23 22 19* 20* BUN -- 44* 47* 53* 51* 50* 48* CREATININE -- 2.50* 2.45* 2.73* 2.76* 2.80* 2.89* GLUCOSE -- -- -- -- -- 140 172 CALCIUM -- 8.5 8.5 8.7 8.5 8.4* 8.2* MAGNESIUM -- 1.24* -- 0.92 0.94 -- 0.95 PHOS -- -- -- -- -- -- 4.4 Pertinent radiology/diagnostic studies: None new Medications Scheduled Meds: ??? captopril 6.25 mg Oral Q8H WILFRED ??? heparin (Porcine) 5,000 Units Subcutaneous 2 times per day ??? melatonin 3 mg Oral Nightly ??? aspirin 81 mg Oral Daily ??? atorvastatin 40 mg Oral QPM ??? gabapentin 800 mg Oral Nightly ??? levothyroxine 37.5 mcg Oral QAM ??? chlorhexidine 15 mL Oral BID ??? sodium chloride 0.9 % 5 mL Intravenous BID ??? carvedilol 37.5 mg Oral BID WC Continuous Infusions: ??? niCARdipine Stopped (09/05/18 0500) PRN Meds:.BUpivacaine (PF), lidocaine, iodixanol, ipratropium-albuterol, HYDROmorphone, sodium chloride 0.9 %, lidocaine, acetaminophen ASSESSMENT/PLAN: Pretty Harmon is a 67 y.o. female w/ PMH of combined systolic and diastolic HF (last EF 54% on 08/30/18), moderate MR, hepatitis B, AAA (3.7 cm), bilateral renal artery stenosis, CKD on HD# 7 for presentedto OSH with hypertensive urgency and acute exacerbation of CHF with acute hypoxic resp failure who has now been admitted to the ICU for increased work of breathing and fluid overload in the setting of an GAEL. Neuro - NTD Cardiovascular #Acute on chronic HF (EF 54% as of 08/30/18): - Cardiology consulted regarding surgical evaluation Pulmonary #Acute Respiratory Failure: Respiratory status remains stable on HFNC. - Continue HFNC - If concerned for flash pulmonary edema, start nitro drip Renal/Fluid/Electrolytes #Hypertensive urgency: Blood pressure control remains modestly controlled on Captopril, although breakthrough HTN is noted towards towards end of effective dose duration. Will double dose with goal of prolonging BP response. Nicardipine will be available if BP >180. #Bilateral renal artery stenosis - Hold amlodipine - Continue Lasix IV 80mg BID, potassium 20mEq - Continue BB - Carotid duplex ordered - Nuclear Renal Cortical Scan tomorrow - Appreciate vascular surgery consultation #GAEL??on Stage 3 CKD: - Appreciate nephrology recommendations ?? Gastrointestinal/Metabolic/Nutrition - NTD Hematology/Infection - NTD Endocrine #Hypothyroidism - Continued levothyroxine ?? #Bundle: - Diet: Renal Diet - DVT PPX: Heparin - GI PPX: Pantoprazole - Activity: As tolerated - CODE STATUS: Full Code Dax Sanders MD, PGY-2 09/05/2018 Blue Team #[id number] Greyson Beckford, OPERATING ROOM SURGICAL TECHNICIAN - 09/04/2018 11:03 PM EDT Respiratory Care High Flow Therapy ?? Indication: High FiO2 Requirement and Increased WOB ?? Settings: O2 Device: High flow nasal cannula O2 Flow Rate (L/min): 35 L/min FiO2 (%): 50 % ?? Vitals: Resp: 15 SpO2: 95 % Skin Integrity: WDL ?? Inhaled Medications: None ?? Lung Sounds: Diminished ?? Assessment: No acute changes to pt today. Respirations unlabored, Chest rise equal and bilateral. ?? Plan: Continue current therapy. NIV at night. ?? Alvaro Prieto RCP - 09/04/2018 2:26 PM EDT Respiratory Care High Flow Therapy Indication: High FiO2 Requirement and Increased WOB Settings: O2 Device: High flow nasal cannula O2 Flow Rate (L/min): 35 L/min FiO2 (%): 50 % Vitals: Resp: 15 SpO2: 95 % Skin Integrity: WDL Inhaled Medications: None Lung Sounds: Diminished Assessment: No acute changes to pt today. Respirations unlabored, Chest rise equal and bilateral. Plan: Continue current therapy. NIV at night. Beba Aaron MD - 09/04/2018 11:08 AM EDT NEPHROLOGY PROGRESS NOTE PATIENT: Pretty Harmon : 1950 REASON FOR CONSULTATION: GAEL in the setting of hypertensive urgency and contrast exposure in attempted intervention for severe bilateral renal artery stenosis (70%) ID:: This is a 67 year old woman with HFpEF (EF 54% on 08/2018 TTE), bilateral renal artery stenosis (>60% occlusion bilaterally in 01/2018, progression of R stenosis to occlusion and persistent L stenosis on most recent duplex in 08/2018), 3.7 cm AAA, acute HBV, HTN, HLD, former tobacco use (45 years up to 1ppd at max, quit 10 years ago), and 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 Underwent angiogram on 09/01 but was unable to intervene on occluded R stenosis and ultimately found L side darien more patent than expected and did not intervene and was transferred to ICU as she became more sobwith worsening pulmonary edema. S; Was on high flow this morning ,still on nicardipine drip but pressures are better controlled .Shehave good UOP with lasix yesterday and creatinine is stable.Her and son are at bedside ,explained the plan in detail and answered most of the questions. PHYSICAL EXAM: Intake/Output Summary (Last 24 hours) at 09/04/2018 1107 Last data filed at 09/04/2018 0600 Gross per 24 hour Intake 448.5 ml Output 2600 ml Net -2151.5 ml Last value Range last 24 hrs Temperature Temp: 36.5 ??C (97.7 ??F) Temp: [36.1 ??C (97 ??F)-36.7 ??C (98.1 ??F)] Heart Rate Heart Rate: 73 Heart Rate: [67-81] Blood Pressure BP: 146/75 BP: (144-183)/(57-91) Respiratory Rate Resp: 15 Resp: [10-20] SpO2 SpO2: 96 % SpO2: [91 %-97 %] Appearance - Awake and alert. Pleasant, interactive. In NAD. Skin - Warm, dry. HEENT - No sclera icterus.On high flow Chest - Lungs have bilateral crackles Heart - S1 and S2. RRR. No MRG. Abd - Soft. Non-tender. Non-distended. Normal BS. Ext - Warm extremities. No peripheral edema. Neuro - Moving extremities without issues. Labs: CBC: Recent Labs 09/04/1822409/02/18140609/01/18 0020 WBC 13.5* 9.7* 6.7 HGB 12.0 11.8 11.5* PLATELET 221 229 220 Chemistry: Recent Labs 09/04/1822409/03/18195609/03/1865409/03/18 0035 09/02/18 0329 NA 137 135 131* 133* 134* K 3.6 4.0 5.2* 4.7 4.8 CL 98 97* 99 98 98 CO2 23 22 19* 20* 20* BUN 53* 51* 50* 48* 36* CREATININE 2.73* 2.76* 2.80* 2.89* 2.71* GLUCOSE -- -- 140 172 142 Recent Labs 09/04/1822409/03/18195609/03/18 0655 09/03/18 0035 09/02/18 0329 08/31/18 0015 CALCIUM 8.7 8.5 8.4* 8.2* 8.5 < > 7.9* MAGNESIUM 0.92 0.94 -- 0.95 0.97 < > 0.75 PHOS -- -- -- 4.4 6.2* -- 3.5 < > = values in this interval not displayed. 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) who had recurrent hospital admissions with sob and flash pulmonary edema in the setting of known renal artery stenosis with failed medical treatment .She did underwent angio this admission when it was found that she have complete occlusion of right renal artery and left renal artery is paten t .She was transferred to ICU after procedure as her respiratory distress worsened and required BIPAP suport 1,Renal artery stenosis : - Unable to stent the right renal artery which might be the source of excess renin causing hypertension /pulmonray edema - Will consider restarting captopril very low dose 6.25 TID as it is a short acting ACEI and she is in a monitored environment to watch kidney function closely and make changes .Hopefull her pressures respond to ABBY inhibition and we can stop nicardipine drip and also may help in long run management .Explained the risk to the family who are in agreement and discussed with primary team too. - Renal functional scan is pending at this time . - Will get more input on angio about microaneurysms and vascular surgery plans going forward ,but seems she had collaterals to right kidney . - Continue with Lasix 80 mg IV BID to maintain stable respiratory status with decent UOP .Watch her kidney function closely and there is no indication for HD. - Monitor Is and Os,Daily weight,avoid contrast studies or NSAID's. Thank you for this very interesting consult. We will continue to follow. Please call with any questions. Beba Aaron MD Nephrology Fellow . #[id number]. Associated attestation - Tyron Kemp MD - 09/04/2018 3:14 PM EDT I saw and discussed the patient with the fellow and agree with the assessment and plan in her note. Have discussed plan with vascular, ICU and family at bedside. Kidney function is more or less stable in the past 24 hours and urine output robust in response to furosemide. Breathing has improved. We will plan on nuc med scan on Thursday to lateralize GFR. We will trial introduction of low-dose short acting captopril as a targeted therapy for renovascular hypertension and an attempt to wean off nicardipine infusion. We will have to keep a close eye on kidney function if creatinine substantially increases we will have to back off this therapy. If we are unable to stabilize blood pressure off infusion would discuss potential renal vein sampling for renin and/or embolization/nephrectomy right kidney. Wewill continue to follow closely. Wilman Randolph MD - 09/04/2018 8:21 AM EDT MICU STAFF PROGRESS NOTE Critical Care Medicine Author: Wilman Randolph MD Patient seen and examined on critical care rounds. Brief HPI: Pretty Harmon is a 67 y.o. woman with renal artery stenosis, reduced systolic function and multiple admissions for acute pulmonary edema. To the ICU overnight with acute hypoxic respiratory failure in the setting of volume overload and hypertension. Active Problem and Important Diagnoses: ?? Acute hypoxic respiratory failure ?? Acute pulmonary edema (flash edema/SCAPE) ?? Acute on chronic diastolic failure (LVEF 54%, E/e' 19-23) ?? Mitral regurgitation, mild ?? Renal artery stenosis ?? Renovascular hypertension with hypertensive urgency ?? GAEL on CKD ASSESSMENT, MANAGEMENT, and DECISION MAKING: Improved. Seems to be on non-invasive ventilation mostly for comfort. She has less shortness of breath. Exam is much improved with no wheezes, fewer crackles and improvedvenous hypertension. Good diuresis with furosemide 200 mg total yesterday. Will contiue with furosemide today. Renal function is probably minimally improved. Restarted nicardipine for hypertension. Would like to start and oral and will address options with Nephrology. EXAM: Physical Exam Constitutional: She is oriented to person, place, and time. She appears well- developed. She is cooperative. She appears distressed. Neck: JVD (hand veins collapse at 20 cm above phleobstatic axis) present. Cardiovascular: Normal rate and regular rhythm. Murmur heard. Pulmonary/Chest: Crackes to inferior 1/3 of chest. Neurological: She is oriented to person, place, and time. Non-focal Skin: Skin is warm and dry. Venous pressures are down to about 20 cm via hand veins. Last value Range last 24 hrs Temperature Temp: 36.6 ??C (97.9 ??F) Temp: [36.1 ??C (97 ??F)-36.9 ??C (98.4 ??F)] Heart Rate Heart Rate: 69 Heart Rate: [67-87] Blood Pressure BP: 144/57 BP: (144-183)/(57-91) Respiratory Rate Resp: 13 Resp: [10-20] SpO2 SpO2: 97 % SpO2: [91 %-97 %] Art BP BP (Arterial Line): -- Last Ht 09/03/18 154.9 cm (5' 0.98) Last Wt 09/04/18 49.3 kg (108 lb 11 oz) Body mass index is 20.55 kg/m??. IS PATIENT CRITICALLY ILL ? Is there a high potential of sudden, clinically significant, or life threatening deterioration? Yes Is there a need for direct personal assessment and management to treat/prevent multiple vital organfailure/deterioration? Yes If this patient is not critically ill, I certify the patient requires continued in-patient hospitalization for: Not applicable (N/A) PATIENT IS CRITICALLY ILL WITH THESE DIAGNOSES BEING MANAGED BY [facility] TEAM: Hypertension/Hypertensive Urgency Respiratory Failure Acute with hypoxia I personally performed 35 minutes of aggregate critical care time exclusive of procedures and teaching. This includes time spent during direct patient evaluation and reassessment, interpreting diagnostic tests, directing life and/or organ supporting interventions and documentation on the unit. Wilman Randolph MD, PhD 09/04/2018 CevallosRhea Guy - 09/04/2018 8:04 AM EDT ICU Blue (#[id number]) Progress Note Patient info: Name: Pretty Harmon : 1950 PCP: Sanjuanita Lee MD PCP phone number: [phone] Date of Admission: 08/29/2018 ( Hospital Day 6 days ) Responsible Attending:Wilman Randolph MD Active Hospital Problems Diagnosis ??? Hypertensive urgency Resolved Hospital Problems No resolved problems to display. ID: Pretty Harmon is a 67 y.o. female w/ PMH of combined systolic and diastolic HF (last EF 54% on 08/30/18), moderate MR, hepatitis B, AAA (3.7 cm), bilateral renal artery stenosis, CKD on HD# 6 for presented to OSH with hypertensive urgency and acute exacerbation of CHF with acute hypoxic resp failure who has now been admitted to the ICU for increased work of breathing and fluid overload in the settingof an GAEL. 24 Hour Events/Subjective: - Reports that breathing is improved this morning on BiPAP - SBP persistently elevated in the 170s-180s, restarted on nicardipine gtt Infusions: Continuous Infusions: ??? niCARdipine 5 mg/hr (09/04/18 0600) Objective: Vitals Last value Range last 24 hrs Temperature Temp: 36.6 ??C (97.9 ??F) Temp: [36.1 ??C (97 ??F)-36.9 ??C (98.4 ??F)] Heart Rate Heart Rate: 69 Heart Rate: [67-87] Blood Pressure BP: 144/57 BP: (144-183)/(57-91) Art Line BP BP (Arterial Line): -- MAP (NBP): [78 mmHg-114 mmHg] Respiratory Rate Resp: 13 Resp: [10-20] SpO2 SpO2: 97 % SpO2: [91 %-97 %] Oxygen Delivery Oxygen Therapy O2 Device: Bi-PAP O2 Flow Rate (L/min): 35 L/min FiO2 (%): 45 % Intake/Output Summary (Last 24 hours) at 09/04/2018 0804 Last data filed at 09/04/2018 0600 Gross per 24 hour Intake 558.5 ml Output 3175 ml Net -2616.5 ml Patient Vitals for the past 168 hrs: Weight 09/04/18 0220 49.3 kg (108 lb 11 oz) 09/03/18 0400 51 kg (112 lb 7 oz) 09/02/18 0600 48.7 kg (107 lb 5.8 oz) 09/01/18 0600 47.4 kg (104 lb 8 oz) 08/31/18 0600 47 kg (103 lb 9.9 oz) 08/29/18 1832 47.4 kg (104 lb 8 oz) 08/29/18 1827 47.4 kg (104 lb 8 oz) Admit wt: 47.4 kg Physical Exam: General: WDWN woman lying in bed in NAD HEENT: EOMI, PERRL, anicteric sclera. Neck: Supple with normal ROM. Lymph: No obvious cervical, axillary, epitrochlear or inguinal LAD Cardiac: Normal S1 and S2, Regular rate and rhythm; JVP present Respiratory: Nonlabored. Bilateral rales noted at lung bases Abd: +BS; soft, non-tender, non-distended, no obvious masses. Ext: No peripheral edema Neuro: Alert and orientated, no-focal deficits?? Lines/Drains/Airways Peripheral IV Line - Single Lumen 08/29 Incision 09/01/18 1535 Right groin Labs: Recent Labs 09/04/185 09/02/18 1407 WBC 13.5* 9.7* HGB 12.0 11.8 HCT 34.4* 33.5* PLATELET 221 229 Recent Labs 09/04/1822409/03/18 1957 09/03/18 0655 09/03/18 0035 09/02/18 0329 NA 137 135 131* 133* 134* K 3.6 4.0 5.2* 4.7 4.8 CL 98 97* 99 98 98 CO2 23 22 19* 20* 20* BUN 53* 51* 50* 48* 36* CREATININE 2.73* 2.76* 2.80* 2.89* 2.71* GLUCOSE -- -- 140 172 142 CALCIUM 8.7 8.5 8.4* 8.2* 8.5 MAGNESIUM -- 0.94 -- 0.95 0.97 PHOS -- -- -- 4.4 6.2* Pertinent radiology/diagnostic studies: None new Medications Scheduled Meds: ??? potassium chloride 40 mEq Oral Once ??? furosemide 80 mg Intravenous Q6H ??? heparin (Porcine) 5,000 Units Subcutaneous 2 times per day ??? melatonin 3 mg Oral Nightly ??? aspirin 81 mg Oral Daily ??? atorvastatin 40 mg Oral QPM ??? gabapentin 800 mg Oral Nightly ??? levothyroxine 37.5 mcg Oral QAM ??? chlorhexidine 15 mL Oral BID ??? sodium chloride 0.9 % 5 mL Intravenous BID ??? carvedilol 37.5 mg Oral BID WC Continuous Infusions: ??? niCARdipine 5 mg/hr (09/04/18 0600) PRN Meds:.BUpivacaine (PF), lidocaine, iodixanol, ipratropium-albuterol, HYDROmorphone, sodium chloride 0.9 %, lidocaine, acetaminophen ASSESSMENT/PLAN: Pretty Harmon is a 67 y.o. female w/ PMH of combined systolic and diastolic HF (last EF 54% on 08/30/18), moderate MR, hepatitis B, AAA (3.7 cm), bilateral renal artery stenosis, CKD on HD# 6 for presentedto OSH with hypertensive urgency and acute exacerbation of CHF with acute hypoxic resp failure who has now been admitted to the ICU for increased work of breathing and fluid overload in the setting of an GAEL. Patient's respiratory status is improved today with diuresis and her renal function does not appear to have worsened. Therefore, will continue aggressive diuresis today in order to improve renalperfusion. Neuro - NTD Cardiovascular #Acute on chronic HF (EF 54% as of 08/30/18): - BiPAP - Cardiology consulted regarding surgical evaluation Pulmonary #Acute Respiratory Failure: - Continue HFNC - If concerned for flash pulmonary edema, start nitro drip Renal/Fluid/Electrolytes #Hypertensive urgency #Bilateral renal artery stenosis - Hold amlodipine - Continue Lasix IV 80mg BID, potassium 20mEq - Continue BB - Carotid duplex ordered - Appreciate vascular surgery consultation #GAEL??on Stage 3 CKD: - Appreciate nephrology recommendations ?? Gastrointestinal/Metabolic/Nutrition - NTD Hematology/Infection - NTD Endocrine #Hypothyroidism - Continued levothyroxine ?? #Bundle: - Diet: Renal Diet - DVT PPX: Heparin - GI PPX: Pantoprazole - Activity: As tolerated - CODE STATUS: Full Code Rhea Cevallos MD, PGY-2 09/04/2018 Blue Team #[id number] Danisha Yu RCP - 09/04/2018 1:47 AM EDT Respiratory Therapy NIV Note NIV Settings: NIV Mode: S/T IPAP (cmH20): 10 EPAP (cmH20): 6 FiO2 (%): 45 % NIV Measurements: Resp: 14 Mve: 6.9 Leak (L/min): 43 L/min Vte: 668 SpO2: 94 % Skin Assessment: NIV Skin Assessment WDL: WDL Mepilex Applied: Yes Nares Assessment WDL: WDL Breath Sounds: Diminished/crackles Assessment: Pt received on HFNC 35lpm and 75% FiO2. Pt placed on above BIPAP settings at ~ 2130 withan FiO2 requirement of 45%. Plan: Continue HFNC and BIPAP as tolerated. DANISHA YU RCP Leah Cline MD - 09/03/2018 5:40 PM EDT Vascular surgery consult service Pt remains in ICU for resp distress. Fortunately her Cr is coming down. Pt would be high risk for open bypass to R kidney. Nephrology recommends renal perfusion scan as they would even consider right renal embolization. We will discuss again w Dr Moody in light of this new consideration for embolization. I have reviewed current status with patient and family. I will discuss with Dr Moody early Tyrel a.m. If any questions arise over the weekend please page oracle database consultant vasc attending Greyson Trevizo, who isalso familiar with this case. Leah Cline MD/SANDY, PGY-5 Section of Vascular Surgery, Pager [phone] Wilman Lugo RCP - 09/03/2018 3:45 PM EDT Respiratory Therapy NIV Note NIV Settings: NIV Mode: S/T IPAP (cmH20): 12 EPAP (cmH20): 8 FiO2 (%): 45 % NIV Measurements: Resp: 11 Mve: 7.9 Leak (L/min): 6 L/min Vte: 733 SpO2: 95 % Skin Assessment: NIV Skin Assessment WDL: WDL Mepilex Applied: Yes Nares Assessment WDL: WDL Breath Sounds: Diminished Assessment:Pt intermittently wore NIV and HFNC requiring between 45% and 60% FiO2 Plan for [facility] Wilman Lugo RCP Wilman Randolph MD - 09/03/2018 7:49 AM EDT MICU STAFF PROGRESS NOTE Critical Care Medicine Author: Wilman Randolph MD Patient seen and examined on critical care rounds. Brief HPI: Pretty Harmon is a 67 y.o. woman with renal artery stenosis, reduced systolic function and multiple admissions for acute pulmonary edema. To the ICU overnight with acute hypoxic respiratory failure in the setting of volume overload and hypertension. Active Problem and Important Diagnoses: ?? Acute hypoxic respiratory failure ?? Acute pulmonary edema (flash edema/SCAPE) ?? Acute on chronic diastolic failure (LVEF 54%, E/e' 19-23) ?? Mitral regurgitation, mild ?? Renal artery stenosis ?? Renovascular hypertension ?? GAEL on CKD ASSESSMENT, MANAGEMENT, and DECISION MAKING: Grossly volume overloaded. Neck vein are full into skull. Bibasilar crackles. Imaging shows pulmonary edema. She needs diuresis. Will give furosemide 100 mg given her current renal function. Fluids are only helpful if they can be handled by the left ventricular and increase the CI, this is not presently the case. Her high venous pressures are certainly impairing renal perfusion pressure (e.g., MAP-CVP) and likely contributing to her acute kidney injury by impairing already compromised renal blood flow. Thissaid she will likely benefit from higher MAP so long as she does not have pulmonary edema. Given recent HepB, VITAL considered but angiogram not typical my my read but would like expert review.Nephrectomy should be considered. If increased work of breathing or oxygen needs, try on CPAP first rather than BiPAP. If more pulmonary edema favor starting NTG with 200-400 mcg IV bolus and then infusion at 100 mcg/min. SBP target < 170. Can use nicardipine, but will discuss other options nephrology. Oral calcium channel se may be a good option. EXAM: Physical Exam Constitutional: She is oriented to person, place, and time. She appears well- developed. She is cooperative. She appears distressed. Neck: JVD (to skull at 45 degree, hand veins do no collapse at any height) present. Cardiovascular: Normal rate and regular rhythm. Murmur heard. Pulmonary/Chest: Crackes to inferior 2/3 of chest. Neurological: She is oriented to person, place, and time. Non-focal Skin: Skin is warm and dry. Last value Range last 24 hrs Temperature Temp: 36.3 ??C (97.3 ??F) Temp: [36.3 ??C (97.3 ??F)-37 ??C (98.6 ??F)] Heart Rate Heart Rate: 70 Heart Rate: [65-80] Blood Pressure BP: 154/78 BP: (125-158)/(57-98) Respiratory Rate Resp: 13 Resp: [10-26] SpO2 SpO2: 95 % SpO2: [86 %-96 %] Art BP BP (Arterial Line): -- Last Ht 09/03/18 154.9 cm (5' 0.98) Last Wt 09/03/18 51 kg (112 lb 7 oz) Body mass index is 21.26 kg/m??. IS PATIENT CRITICALLY ILL ? Is there a high potential of sudden, clinically significant, or life threatening deterioration? Yes Is there a need for direct personal assessment and management to treat/prevent multiple vital organfailure/deterioration? Yes If this patient is not critically ill, I certify the patient requires continued in-patient hospitalization for: Not applicable (N/A) PATIENT IS CRITICALLY ILL WITH THESE DIAGNOSES BEING MANAGED BY [facility] TEAM: Respiratory Failure Acute with hypoxia I personally performed 40 minutes of aggregate critical care time exclusive of procedures and teaching. This includes time spent during direct patient evaluation and reassessment, interpreting diagnostic tests, directing life and/or organ supporting interventions and documentation on the unit. Wilman Randolph MD, PhD 09/03/2018 Dax Sanders MD - 09/03/2018 7:14 AM EDT ICU Blue (#[id number]) Progress Note Patient info: Name: Pretty Harmon : 1950 PCP: Sanjuanita Lee MD PCP phone number: [phone] Date of Admission: 08/29/2018 ( Hospital Day 5 days ) Responsible Attending:Thmo Munguia MD Active Hospital Problems Diagnosis ??? Hypertensive urgency Resolved Hospital Problems No resolved problems to display. ID: Pretty Harmon is a 67 y.o. female w/ PMH of combined systolic and diastolic HF (last EF 54% on 08/30/18), moderate MR, hepatitis B, AAA (3.7 cm), bilateral renal artery stenosis, CKD on HD# 5 for presented to OSH with hypertensive urgency and acute exacerbation of CHF with acute hypoxic resp failure who has now been admitted to the ICU for increased work of breathing and fluid overload in the settingof an GAEL. 24 Hour Events/Subjective: - acute hypoxic respiratory failure overnight - Maintained on BiPAP - chest pressure overnight, EKG and troponin (-) x2 - cts to feel SOB in AM, no longer endorsing chest pressure NIV Settings: NIV Mode: S/T IPAP (cmH20): 12 EPAP (cmH20): 8 FiO2 (%): 90 % NIV Measurements:?? Resp: 19 Mve: 12.5 Leak (L/min): 18 L/min Vte: 660 SpO2: 96 % Infusions: Continuous Infusions: ??? niCARdipine Stopped (09/02/18 0926) Objective: Vitals Last value Range last 24 hrs Temperature Temp: 36.3 ??C (97.3 ??F) Temp: [36.3 ??C (97.3 ??F)-37 ??C (98.6 ??F)] Heart Rate Heart Rate: 70 Heart Rate: [65-80] Blood Pressure BP: 154/78 BP: (125-158)/(57-98) Art Line BP BP (Arterial Line): -- MAP (NBP): [68 mmHg-105 mmHg] Respiratory Rate Resp: 13 Resp: [10-26] SpO2 SpO2: 95 % SpO2: [86 %-96 %] Oxygen Delivery Oxygen Therapy O2 Device: Bi-PAP O2 Flow Rate (L/min): 40 L/min FiO2 (%): 90 % Intake/Output Summary (Last 24 hours) at 09/03/2018 0714 Last data filed at 09/03/2018 0000 Gross per 24 hour Intake 1951.4 ml Output 550 ml Net 1401.4 ml Patient Vitals for the past 168 hrs: Weight 09/03/18 0400 51 kg (112 lb 7 oz) 09/02/18 06 48.7 kg (107 lb 5.8 oz) 09/01/18 06 47.4 kg (104 lb 8 oz) 08/31/18 0600 47 kg (103 lb 9.9 oz) 08/29/18 1832 47.4 kg (104 lb 8 oz) 08/29/18 1827 47.4 kg (104 lb 8 oz) Admit wt: 47.4 kg Physical Exam: General: Pleasant, alert, appropriate, in NAD. Appears stated age. HEENT: EOMI, PERRL, anicteric sclera. Neck: Supple with normal ROM. Lymph: No obvious cervical, axillary, epitrochlear or inguinal LAD Cardiac: Normal S1 and S2, Regular rate and rhythm; JVP present, veins maintain patency when held over head Respiratory: Nonlabored. Bilateral rales noted at lung bases Abd: + BS; soft, non-tender, non-distended, no obvious masses. Ext: Trace pitting edema in bilateral lower extremities Neuro: Alert and orientated, no-focal deficits Skin: Bruising around R femoral insertion site, no active bleeding ?? Lines/Drains/Airways Peripheral IV Line - Single Lumen 08/29 Incision 09/01/18 1535 Right groin Labs: Recent Labs 09/02/18 1407 09/01/18 0020 WBC 9.7* 6.7 HGB 11.8 11.5* HCT 33.5* 32.9* PLATELET 229 220 Recent Labs 09/03/18 0035 09/02/18 0329 09/01/18 0020 NA 133* 134* 134* K 4.7 4.8 4.1 CL 98 98 99 CO2 20* 20* 23 BUN 48* 36* 24* CREATININE 2.89* 2.71* 2.17* GLUCOSE 172 142 117 CALCIUM 8.2* 8.5 7.8* MAGNESIUM 0.95 0.97 0.86 PHOS 4.4 6.2* -- No results for input(s): AST, ALT, ALKPHOS, BILITOT, BILIDIR in the last 72 hours. ABG (Arterial Blood Gas) No results found for: PHART, PO2ART, [id number], [id number] Microbiology: Microbiology Results (Last 30 days) No results found for the last 720 hours. Pertinent radiology/diagnostic studies: Ir Or Vasc Aniogram Image Storage Only Result Date: 09/01/2018 This exam is auto-finalizing. It's purpose is for storage only. Xr Chest Pa Or Ap 1 View Result Date: 09/03/2018 EXAMINATION: XR CHEST PA OR AP 1 VIEW CLINICAL HISTORY: increasing O2 demand from 6L/NC to 80% high flow but still desaturating to 80's cxr on 09/01 w/ pulmonary edema and pleural effusion; pt continueto receive IVF since yesterday due to worsening renal function- IVF on hold now TECHNIQUE: 1 view ofthe chest COMPARISON: September 01, 2018 FINDINGS: Slightly low lung volumes. Bibasilar pleural-parenchymal opacities. Pulmonary vascular indistinctness and interstitial prominence. No pneumothorax seen. Cardiopericardial silhouette predominantly obscured. Pulmonary vascular congestion and interstitial edema. Pleural effusions and bibasilar atelectasis. Thank you for letting us participate in the care of this patient. For questions regarding this report,please contact the number below. Xr Chest Pa Or Ap 1 View Result Date: 09/01/2018 EXAMINATION: XR CHEST PA OR AP 1 VIEW CLINICAL HISTORY: Worsening hypoxia; eval pulmonary edema TECHNIQUE: 1 view of the chest COMPARISON: None FINDINGS: The heart is enlarged. There are bilateral pleural effusions and vascular marginal blurring consistent with pulmonary edema. There is airless lung at both lung bases medially, most likely lower lobe atelectasis secondary to the pleural effusions. Cardiomegaly with pulmonary edema, bilateral pleural effusions and bibasilar atelectasis. Thank you for letting us participate in the care of this patient. For questions regarding this report, please contact the number below. Medications Scheduled Meds: ??? heparin (Porcine) 5,000 Units Subcutaneous 2 times per day ??? melatonin 3 mg Oral Nightly ??? aspirin 81 mg Oral Daily ??? atorvastatin 40 mg Oral QPM ??? gabapentin 800 mg Oral Nightly ??? levothyroxine 37.5 mcg Oral QAM ??? chlorhexidine 15 mL Oral BID ??? sodium chloride 0.9 % 5 mL Intravenous BID ??? carvedilol 37.5 mg Oral BID WC Continuous Infusions: ??? niCARdipine Stopped (09/02/18 1626) PRN Meds:.BUpivacaine (PF), lidocaine, iodixanol, ipratropium-albuterol, HYDROmorphone, sodium chloride 0.9 %, lidocaine, acetaminophen ASSESSMENT/PLAN: Pretty Harmon is a 67 y.o. female w/ PMH of combined systolic and diastolic HF (last EF 54% on 08/30/18), moderate MR, hepatitis B, AAA (3.7 cm), bilateral renal artery stenosis, CKD on HD# 5 for presentedto OSH with hypertensive urgency and acute exacerbation of CHF with acute hypoxic resp failure who has now been admitted to the ICU for increased work of breathing and fluid overload in the setting of an GAEL. Increased oxygen requirements felt to be 2/2 hypervolemic state in setting of poor renal perfusion. Plan for diuresis today. Major Plans for Today: Neuro - NTD Cardiovascular # ACUTE ON CHRONIC SYSTOLIC & DIASTOLIC CHF (EF 54% as of 08/30/18): Nicardipine held due to concerns of poor renal perfusion - BiPAP - No longer having chest pressure - ECG showed no acute ischemia - Initial troponin negative - repeat troponin pending (7am) - Cardiology consulted regarding surgical evaluation Pulmonary #Acute Respiratory Failure: stable on BiPAP - may consider maintenance on CPAP as tolerated - if concerned for Nitro drip if concerned for pulmonary edema Renal/Fluid/Electrolytes # HTN URGENCY # SEVERE BILATERAL RENAL ARTERY STENOSIS s/p unsuccessful cannulation (R): Continues to be insistentthat she does not want dialysis. Do not feel that additional fluid will improve renal perfusion given her likely euvolemic/hypervolemic state. We feel that the majority of her fluid is venous, which will impact her ability to perfuse her kidneys as renal perfusion is - Nicardipine gtt discontinued - SBP goal now 130-170 - Holding amlodipine - st Lasix x1 - Continue BB - Carotid duplex ordered - Appreciate vascular surgery consultation #??GAEL??CKD STAGE 3-4: Baseline creatinine ~2; Creatinine 2.71 today with oliguria, which is concerning due to the recent contrast load and lasix in the setting of her CKD. Currently holding IV fluids due to respiratory symptoms. Given the evidence of hypervolemia, we expect that the patient has an elevated CVP, which will inhibit her renal perfusion. As such, we will proceed with diuresis today. Look forward to nephrology recommendations regarding diuresis and if OPERATING ROOM SURGICAL TECHNICIAN is warranted.hydration due to concerns of poor renal perfusion. - monitor volume status - BMP QD - Vascular as above - Appreciate nephrology consultation ?? Gastrointestinal/Metabolic/Nutrition - NTD Hematology/Infection - NTD Endocrine #HYPOTHYROIDISM: - Continued levothyroxine ?? # Routine Diet: Renal Diet DVT PPX: Heparin GI PPX: Pantoprazole Activity: As tolerated CODE STATUS: Full Code Dax Sanders MD, PGY-1 09/03/2018 Blue Team #[id number] Canyd Dumont RN - 09/03/2018 7:04 AM EDT OUTCOME EVALUATION NOTE: OUTCOME SUMMARY: Pt arrived to ICU at about 0400. Placed on bipap on 90%, got settled and pt went to sleep and is resting comfortably. Pt has no complaints of pain. PLAN MOVING FORWARD: Support pt with oxygen as needed, continue to monitor INDIVIDUALIZED FALL PREVENTION INTERVENTIONS: Patient-specific fall risk factors per assessment: [current deficits]: Tubing, oxygen requirements Assistance [level of assistance required for transfers and ambulation]: yes Supervision [direct monitoring required during toileting and ADLs]: yes Surveillance [continuous indirect monitoring]: yes Patient-specific fall prevention interventions for sensory deficits provided, if applicable: [X] Yes CPG GOAL OUTCOME EVALUATION: Candy Dumont RN - 09/03/2018 6:36 AM EDT [facility] on bipap and resting comfortably. Greyson Beckford RRT - 09/03/2018 5:51 AM EDT Respiratory Therapy NIV Note NIV Settings: NIV Mode: S/T IPAP (cmH20): 12 EPAP (cmH20): 8 FiO2 (%): 90 % NIV Measurements: Resp: 19 Mve: 12.5 Leak (L/min): 18 L/min Vte: 660 SpO2: 96 % Laboratory: No results found for: PHART, BGT6HXW, PO2ART, CSF7NZT, BEART Skin Assessment: NIV Skin Assessment WDL: WDL Mepilex Applied: Yes Nares Assessment WDL: WDL Breath Sounds: coarse, crackles throughout Assessment: Patient transported to ICU due to high O2 requirement on HFNC. Bipap initiated in unit and patient has tolerated well. GREYSON BECKFORD RRT Jeana Birmingham RN - 09/03/2018 4:33 AM EDT Pt alert and oriented. On 6 L 02 at start of shift. SHe was able to ambulate in the [place] wit oxygen on. Denied SOB. LS clear/diminshed. Sinus rhythm HR 60s-70s. SBP 130s-160s. Goal for SBP less than 170. Up to bedside commode x2 voided 125 mL each time. In bed resting tonight up to commode at 0000, returned to bed , O2 sats 82% not recovering, noted to have exp wheezes, 02 ventimask on and neb tx given.IV fluids paused. RT at bedside to evaluate and high flow oxygen started at 35L 60%. Pt wearing high flow oxygen but still have sats down to 87% for periods of time. Noted to have increased symptoms of labored breathing. N.P covering medicine 2500 team at bedside to evaluate. Pt requiring 80% fiO2. Rt at bedside again to re-assess. At 0200 STAT CXR done , concern for worsening pulmonary edema. Pt having heavy feeling in chest, Nitro 0.4 mg SL ordered and given to pt at 0250 with releif. Pt appears more comfortable. Troponin and EKG ordered. Critical care consulted as pt still requiring high flow oxygen with fiO2 80-90% to maintain sats above 90% and to meet pts resp demand. Pt transferred to ICU 4N, report given to Candy SCHWARTZ. RT accompanied pt for transfer. N.P called pts to update. Ren Hoffmann MD - 09/02/2018 4:37 PM EDT Hospital Medicine Attending Daily Progress Note Admit Date: 08/29/2018 Hospital Day 4 days Active Hospital Problems Diagnosis ??? Hypertensive urgency Resolved Hospital Problems No resolved problems to display. PMH Active Non-Hospital Problems Diagnosis ??? Renal artery stenosis ??? Abdominal aortic aneurysm (AAA) without rupture ??? Acute hepatitis ??? Viral hepatitis B acute Inpatient Medications: Scheduled ??? heparin (Porcine) 5,000 Units Subcutaneous 2 times per day ??? melatonin 3 mg Oral Nightly ??? aspirin 81 mg Oral Daily ??? atorvastatin 40 mg Oral QPM ??? gabapentin 800 mg Oral Nightly ??? levothyroxine 37.5 mcg Oral QAM ??? chlorhexidine 15 mL Oral BID ??? sodium chloride 0.9 % 5 mL Intravenous BID ??? carvedilol 37.5 mg Oral BID WC Continuous infusions: ??? sodium chloride 0.9% 150 mL/hr (09/02/18 1400) ??? niCARdipine 2.5 mg/hr (09/02/18 1634) PRN: BUpivacaine (PF), lidocaine, iodixanol, ipratropium-albuterol, HYDROmorphone, sodium chloride 0.9 %, lidocaine, acetaminophen Interval History: - UOP dropped overnight - Pt developed worsening hypoxia overnight - given IV lasix twice - No SOB at the time of my visit ROS: No chest pain, abdominal pain, nausea, vomiting, SOB Physical Exam Vitals Range last 24 hrs Temperature Temp: [36.7 ??C (98.1 ??F)-37.6 ??C (99.7 ??F)] Heart Rate Heart Rate: [67-76] Blood Pressure BP: (122-161)/(45-98) Respiratory Rate Resp: [9-26] SpO2 SpO2: [87 %-94 %] Intake/Output Summary (Last 24 hours) at 09/02/2018 1638 Last data filed at 09/02/2018 1634 Gross per 24 hour Intake 1954.4 ml Output 505 ml Net 1449.4 ml Patient Vitals for the past 168 hrs: Weight 09/02/18 0600 48.7 kg (107 lb 5.8 oz) 09/01/18 0600 47.4 kg (104 lb 8 oz) 08/31/18 0600 47 kg (103 lb 9.9 oz) 08/29/18 1832 47.4 kg (104 lb 8 oz) 08/29/18 1827 47.4 kg (104 lb 8 oz) Body mass index is 20.29 kg/m??. GEN: Resting in bed, NAD HEENT: NCAT, OP clear NECK: Thin COR: +S1S2 PULM: Crackles at bases, improved ABDO: + NABS in 4Q, soft NTND EXT: MAEE LYMPH: No LE edema NEURO: Alert, oriented Studies reviewed in eDH. Remarkable for the following: LABS: Last 3 wbc, hgb, hct plt Recent Labs 09/02/18 1407 09/01/18 0020 08/31/18 0015 WBC 9.7* 6.7 8.1 HGB 11.8 11.5* 12.1 HCT 33.5* 32.9* 34.6* PLATELET 229 220 235 Last 3 Lytes Recent Labs 09/02/18 0329 09/01/18 0020 08/31/18 0015 NA 134* 134* 135 K 4.8 4.1 3.9 CL 98 99 98 CO2 20* 23 23 BUN 36* 24* 21* CREATININE 2.71* 2.17* 1.93* FSBG Trend No results for input(s): POCGLU in the last 72 hours. MICRO: No results for input(s): URINECULTURE in the last 720 hours. No results for input(s): GRAMSTAIN, BFCX, LOWERRESPCX, TISSUECX in the last 720 hours. No results for input(s): BLOODCX in the last 720 hours. ECG: Recent Labs 09/02/18 0058 DIAGLINE Normal sinus rhythm Normal ECG When compared with ECG of 29-AUG-2018 21:01, Nonspecific T wave abnormality now evident in Anterior leads Nonspecific T wave abnormality no longer evident in Lateral leads QTCCALC 464 VASCULAR: Recent Labs 08/30/18 1939 VBTEXTRPT Department: Vascular Surgery Lab Patient: [id number] (PRETTY HARMON) CPT: 19862 ICD10: I70.1 Referring Physician: LILIANA ECHEVERRIA Indications: HTN crisis ICD10 Diagnosis Code: I70.1 Findings: Syl Renal Aorta PSV (cm/s): 39 EDV (cm/s): 0 Renal Artery Mid, Right PSV (cm/s): 45 EDV (cm/s): 17 RAR: 1.2 RI: 0.62 Renal Artery Distal, Right PSV (cm/s): 40 EDV (cm/s): 17 RAR: 1.0 RI: 0.58 Mid Pole Renal Parenchyma, Right PSV (cm/s): 13 EDV (cm/s): 0 RI: 1.00 Lower Pole Renal Parenchyma, Right PSV (cm/s): 13 EDV (cm/s): 0 RI: 1.00 Renal Hilum, Right AT (ms): 175 Kidney Length, Right Length (cm): 9.9 Renal Vein, Right Patent: Patent Renal Artery Ostium, Left PSV (cm/s): 177 EDV (cm/s): 17 RAR: 4.5 RI: 0.91 Renal Artery Proximal, Left PSV (cm/s): 177 EDV (cm/s): 12 RAR: 4. 5 RI: 0.93 Renal Artery Mid, Left PSV (cm/s): 95 EDV (cm/s): 10 RAR: 2.4 RI: 0.90 Renal Artery Distal, Left PSV (cm/s): 60 EDV (cm/s): 0 RAR: 1.5 RI: 1.00 Mid Pole Renal Parenchyma, Left PSV (cm/s): 61 EDV (cm/s): 14 RI: 0.77 Lower Pole Renal Parenchyma, Left PSV (cm/s): 38 EDV (cm/s): 8 RI: 0.79 Renal Hilum, Left AT (ms): 34 Kidney Length, Left Length (cm): 10.4 Renal Vein, Left Patent: Patent Interpretation: Patent aortic aneurysm with mural thrombus, maximum perirenal diameter is 3.6 cm. Previous study on 02/24/18 was 3.1 cm with what appears to be less mural thrombus compared to today's exam. Right: Suspect proximal renal artery occlusion with reconstitution of the mid segment. Doppler waveforms are consistent with abnormally elevated parenchymal resistance. Significant progression of stenosis compared to the previous exam. Left: Patent main lisa l artery with no evidence of hemodynamically significant stenosis. Higher velocities (255 cm/s) were not seen on today's exam. No significant change compared to previous exam. Dr. Moody was notified of the results. Electronically Signed by: LEAH PEREZ on 2018-08-31 02:05:36 PM End of Report IMAGING: TTE 08/30/18: SUMMARY: ?? 1. Mild concentric left ventricular hypertrophy is [...] remainder of report for additional findings. 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 ADDITIONAL HISTORY: The patient was treated at OSH with a nicardipine gtt & lasix gtt. She initially required BiPAP for acute hypoxic respiratory failure but had been off BiPAP for ~ 36 hours by the time she was transferred. Due to ongoing need for nicardipine gtt, she was transferred to [facility] for consideration of renal artery interventions. Plan:?? # HTN URGENCY # SEVERE BILATERAL RENAL ARTERY STENOSIS - Required nicardipine gtt at OSH - This was titrated off 08/30 in AM; restarted in PM - Renal artery U/S 08/30 showed complete occlusion of R renal artery which is suspected to be chronic. - Pt was taken for angiography on 09/01; unable to cannulate the R renal artery - no interventions on the L TODAY: We are now titrating nicardipine off - SBP goal now 130-170 as patient may rely on higher perfusion pressure p - Holding amlodipine - Continued BB - We are mindful of ~4cm AAA - Appreciate vascular surgery consultation ?? # ACUTE ON CHRONIC SYSTOLIC & DIASTOLIC CHF - Most recent TTE showed EF 35-40% - Pt was on a lasix gtt at OSH but I&O balance not known - Started on IV bolus lasix at [facility] - EKG at OSH showed STD V5-V6 ---> Pt has negative stress test 08/25 - TTE showed EF 54% - Troponin negative here TODAY: Pt has now lower extremity edema but CXR evidence of pulmonary edema. - Hold off on further lasix unless in respiratory failure in which cause I would opt for PPV & nitro, then lasix if needed # GAEL CKD STAGE 3-4: - Baseline creatinine ~2 TODAY: Creatinine 2.71 today with oliguria. In light of contrast load, antecedent CKD, & lasix this is concerning. I have asked nephrology to assist us in the management of this patient as there chris chance that she might require dialysis if radha ANTHONY emerges. - Start NS at 150 mls/hr - Watch volume status closely - Holding lasix - Follow renal function closely - Vascular as above - Appreciate nephrology consultation # HYPOTHYROIDISM: - Continued levothyroxine Diet Renal diet 2 GM NA Discharge planning N/A PT/OT/Speech Pending Lines/Access PIV Caballero catheter N/A DVT/GI Prophylaxis WILFRED Code status Full Code Family N/A PCP Sanjuanita Lee MD [phone] Attestation IPI Certification I certify that I am a D-H credentialed attending provider with admitting privileges and that the patient meets or has met medical necessity to require an inpatient IPI level of care meeting a minimum of two midnights or is on the [facility] inpatient only procedure list (status C) due to: Acute CHF requiringIV lasix Team (17/11 Coverage) [address] - 09/02/2018 3:43 PM EDT Nutrition Progress Note Pretty Harmon is a 67 y.o. female Reason for intervention: Education Nutrition Recommendations: 1- Provided renal and low sodium diet education- verbal and written 2- Enc PO intake on renal and 2g Na diet. 3- Consider Phos binders for elevated phosphorus Patient Active Problem List Diagnosis Code ??? Acute hepatitis B17.9 ??? Viral hepatitis B acute B16.9 ??? Abdominal aortic aneurysm (AAA) without rupture I71.4 ??? Renal artery stenosis I70.1 ??? Hypertensive urgency I16.0 Past Medical History: Diagnosis Date ??? AAA (abdominal aortic aneurysm) [id number] angiogram; 3.2 cm infrarenal ??? Constipation ??? Dyslipidemia ??? Hypertension ??? Insomnia ??? Peripheral vascular disease ??? Renal artery stenosis R; per 2009 angiogram Active Orders Diet Renal diet 2 GM NA Frequency: Effective Now Number of Occurrences: Until Specified Admit Weight: 47.4 kg Estimated body mass index is 20.29 kg/m?? as calculated from the following: Height as of this encounter: 154.9 cm (5' 1). Weight as of this encounter: 48.7 kg (107 lb 5.8 oz). Crockett Body Weight (IBW): Crockett body weight: 47.8 kg (105 lb 6.1 oz) Adjusted ideal body weight: 48.2 kg (106 lb 2.8 oz) UBW: 110# Today's medications: gabapentin, lipitor, melatonin, synthroid Of note: pt states she is taking Potassium at home BID Lab Results Component Value Date NA 134 (L) 09/02/2018 K 4.8 09/02/2018 CL 98 09/02/2018 CO2 20 (L) 09/02/2018 BUN 36 (H) 09/02/2018 CREATININE 2.71 (H) 09/02/2018 GLUCOSE 142 09/02/2018 MAGNESIUM 0.97 09/02/2018 CALCIUM 8.5 09/02/2018 PHOS 6.2 (H) 09/02/2018 AST 19 06/14/2018 ALT 11 06/14/2018 ALKPHOS 57 06/14/2018 BILITOT 0.4 06/14/2018 BILIDIR 0.1 08/14/2016 CRP <0.2 06/14/2018 Last Bowel Movement: 09/02/18 Assessment: Provided diet education for pt. She was receptive to the information, and currently follows a low sodium closely at home. She is below her UBW, gave ideas to increase her PO intake. Consider phos binders with food as she likes to eat nuts and peanut butter. TAMI Swartz Pager: [phone] Doris Lamb, RN - 09/02/2018 10:02 AM EDT Paged resp. Therapy to assess pt. Pt requiring increase in O2 currently up to 6L to maintain sats 89-92%. No increase in work of breathing. Pt declines an changes to resp status. Also paged team at 2500 to make aware. Resp therapist over to assess pt. Will continue to monitor pt and update team with changes. No call back from team at this time. [phone] and made aware of no UOP so far this shift, Bladder scan mid morning for only 172ml. Thom Velasquez - 09/02/2018 8:12 AM EDT Vascular Surgery Inpatient Progress Note ID: Pretty Harmon is a 67 y.o. female with a known history of renal artery stenosis who was admitted on 08/29/2018 with uncontrolled hypertensive urgency 24hr events: ?? Taken to IR yesterday, found to have widely patent L renal artery with proximal occlusion of R renal ?? Continues to have adequate UOP, cr increasing to 2.17 from 1.93 ?? Nicardipine between 5-7, now titrating down Subjective: No acute events, states that she is not having any headaches, blurred vision, n/v, otherwise feels well O: Last value Range last 24hrs Temperature Temp: 37 ??C (98.6 ??F) Temp: [36.7 ??C (98.1 ??F)-37.6 ??C (99.7 ??F)] Heart Rate Heart Rate: 73 Heart Rate: [67-79] Blood Pressure BP: 125/57 BP: (122-161)/(45-66) Respiratory Rate Resp: 14 Resp: [8-21] SpO2 SpO2: 93 % SpO2: [88 %-94 %] 09/01 700 - 09/02 07 In: 1608 [P.O.:325; I.V.:1283] Out: 680 [Urine:675] Physical Exam: General: NAD, resting comfortably, pleasant, conversant HEENT: PERRL, anicteric sclerae CVS: RRR Pulm: CTAB Abd: soft, non-tender, non-distended, non-peritoneal, Skin: warm, dry Ext: no edema Neuro: non-focal, moving all four extremities spontaneously Labs: Recent Labs 09/01/18 0020 08/31/18 0015 WBC 6.7 8.1 HGB 11.5* 12.1 HCT 32.9* 34.6* PLATELET 220 235 Recent Labs 09/02/18 0329 09/01/18 0020 08/31/18 0015 NA 134* 134* 135 K 4.8 4.1 3.9 CL 98 99 98 CO2 20* 23 23 BUN 36* 24* 21* CREATININE 2.71* 2.17* 1.93* GLUCOSE 142 117 128 CALCIUM 8.5 7.8* 7.9* MAGNESIUM 0.97 0.86 0.75 PHOS 6.2* -- 3.5 New Studies: Renal arterial duplex Study pending ASSESSMENT: Pretty Harmon is a 67 y.o. female with bilateral renal artery stenosis who was admitted with hypertensive urgency likely secondary to her YING and R renal arterial occlusion. Given R renal artery occlusion will discuss operative planning with Dr. Moody. Recommendations - continue to monitor UOP, no with creatinine increas to 2.7 - patient will need pre-operative clearance with cardiology, hx of CHF Attempt to transition IV anti-hypertensives to PO Appreciate involvement of hospital medicine team . Thom Velasquez MD Ren Hoffmann MD - 09/01/2018 6:10 PM EDT Hospital Medicine Attending Daily Progress Note Admit Date: 08/29/2018 Hospital Day 3 days Active Hospital Problems Diagnosis ??? Hypertensive urgency Resolved Hospital Problems No resolved problems to display. PMH Active Non-Hospital Problems Diagnosis ??? Renal artery stenosis ??? Abdominal aortic aneurysm (AAA) without rupture ??? Acute hepatitis ??? Viral hepatitis B acute Inpatient Medications: Scheduled ??? [JUN Hold] heparin (Porcine) 5,000 Units Subcutaneous 2 times per day ??? [JUN Hold] melatonin 3 mg Oral Nightly ??? [MAR Hold] aspirin 81 mg Oral Daily ??? [MAR Hold] atorvastatin 40 mg Oral QPM ??? [MAR Hold] gabapentin 800 mg Oral Nightly ??? [MAR Hold] levothyroxine 37.5 mcg Oral QAM ??? [MAR Hold] chlorhexidine 15 mL Oral BID ??? [MAR Hold] sodium chloride 0.9 % 5 mL Intravenous BID ??? [MAR Hold] carvedilol 37.5 mg Oral BID WC Continuous infusions: ??? [JUN Hold] niCARdipine 5 mg/hr (09/01/18 1804) PRN: naloxone, HYDROmorphone, ondansetron, BUpivacaine (PF), lidocaine, iodixanol, ipratropium-albuterol, [MAR Hold] HYDROmorphone, [MAR Hold] sodium chloride 0.9 %, [MAR Hold] lidocaine, [MAR Hold] acetaminophen Interval History: - SOB has improved - Dilaudid caused nausea ROS: No chest pain, abdominal pain, nausea, vomiting, SOB Physical Exam Vitals Range last 24 hrs Temperature Temp: [36.5 ??C (97.7 ??F)-37.6 ??C (99.7 ??F)] Heart Rate Heart Rate: [66-80] Blood Pressure BP: (124-154)/(48-61) Respiratory Rate Resp: [8-21] SpO2 SpO2: [89 %-95 %] Intake/Output Summary (Last 24 hours) at 09/01/2018 1810 Last data filed at 09/01/2018 1725 Gross per 24 hour Intake 761.7 ml Output 1030 ml Net -268.3 ml Patient Vitals for the past 168 hrs: Weight 09/01/18 0600 47.4 kg (104 lb 8 oz) 08/31/18 0600 47 kg (103 lb 9.9 oz) 08/29/18 1832 47.4 kg (104 lb 8 oz) 08/29/18 1827 47.4 kg (104 lb 8 oz) Body mass index is 19.74 kg/m??. GEN: Resting in bed, NAD HEENT: NCAT, OP clear NECK: Thin COR: +S1S2 PULM: Crackles at bases, increased WOB ABDO: + NABS in 4Q, soft NTND EXT: MAEE LYMPH: Trace LE edema NEURO: Alert, oriented Studies reviewed in eDH. Remarkable for the following: LABS: Last 3 wbc, hgb, hct plt Recent Labs 09/01/18 0020 08/31/18 0015 08/29/18 2043 WBC 6.7 8.1 8.8 HGB 11.5* 12.1 12.5 HCT 32.9* 34.6* 35.6* PLATELET 220 235 235 Last 3 Lytes Recent Labs 09/01/18 0020 08/31/18 0015 08/30/18 0800 NA 134* 135 138 K 4.1 3.9 3.6 CL 99 98 103 CO2 23 23 24 BUN 24* 21* 22* CREATININE 2.17* 1.93* 1.88* FSBG Trend Recent Labs 08/29/18 183 POCGLU 115 MICRO: No results for input(s): URINECULTURE in the last 720 hours. No results for input(s): GRAMSTAIN, BFCX, LOWERRESPCX, TISSUECX in the last 720 hours. No results for input(s): BLOODCX in the last 720 hours. ECG: Recent Labs 08/29/182100 DIAGLINE Normal sinus rhythm Possible Left atrial enlargement Left ventricular hypertrophy with repolarization abnormality Abnormal ECG No previous ECGs available Confirmed by MD Oliver, Frantz Preston ([id number]) on 08/30/2018 7:51:46 AM QTCCALC 476 VASCULAR: Recent Labs 08/30/181938 VBTEXTRPT Department: Vascular Surgery Lab Patient: [id number] (PRETTY HARMON) CPT: 72948 ICD10: I70.1 Referring Physician: LILIANA ECHEVERRIA Indications: HTN crisis ICD10 Diagnosis Code: I70.1 Findings: Syl Renal Aorta PSV (cm/s): 39 EDV (cm/s): 0 Renal Artery Mid, Right PSV (cm/s): 45 EDV (cm/s): 17 RAR: 1.2 RI: 0.62 Renal Artery Distal, Right PSV (cm/s): 40 EDV (cm/s): 17 RAR: 1.0 RI: 0.58 Mid Pole Renal Parenchyma, Right PSV (cm/s): 13 EDV (cm/s): 0 RI: 1.00 Lower Pole Renal Parenchyma, Right PSV (cm/s): 13 EDV (cm/s): 0 RI: 1.00 Renal Hilum, Right AT (ms): 175 Kidney Length, Right Length (cm): 9.9 Renal Vein, Right Patent: Patent Renal Artery Ostium, Left PSV (cm/s): 177 EDV (cm/s): 17 RAR: 4.5 RI: 0.91 Renal Artery Proximal, Left PSV (cm/s): 177 EDV (cm/s): 12 RAR: 4. 5 RI: 0.93 Renal Artery Mid, Left PSV (cm/s): 95 EDV (cm/s): 10 RAR: 2.4 RI: 0.90 Renal Artery Distal, Left PSV (cm/s): 60 EDV (cm/s): 0 RAR: 1.5 RI: 1.00 Mid Pole Renal Parenchyma, Left PSV (cm/s): 61 EDV (cm/s): 14 RI: 0.77 Lower Pole Renal Parenchyma, Left PSV (cm/s): 38 EDV (cm/s): 8 RI: 0.79 Renal Hilum, Left AT (ms): 34 Kidney Length, Left Length (cm): 10.4 Renal Vein, Left Patent: Patent Interpretation: Patent aortic aneurysm with mural thrombus, maximum perirenal diameter is 3.6 cm. Previous study on 02/24/18 was 3.1 cm with what appears to be less mural thrombus compared to today's exam. Right: Suspect proximal renal artery occlusion with reconstitution of the mid segment. Doppler waveforms are consistent with abnormally elevated parenchymal resistance. Significant progression of stenosis compared to the previous exam. Left: Patent main lisa l artery with no evidence of hemodynamically significant stenosis. Higher velocities (255 cm/s) were not seen on today's exam. No significant change compared to previous exam. Dr. Moody was notified of the results. Electronically Signed by: LEAH PEREZ on 2018-08-31 02:05:36 PM End of Report IMAGING: TTE 08/30/18: SUMMARY: ?? 1. Mild concentric left ventricular hypertrophy is [...] remainder of report for additional findings. 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 ADDITIONAL HISTORY: The patient was treated at OSH with a nicardipine gtt & lasix gtt. She initially required BiPAP for acute hypoxic respiratory failure but had been off BiPAP for ~ 36 hours by the time she was transferred. Due to ongoing need for nicardipine gtt, she was transferred to [facility] for consideration of renal artery interventions. Plan:?? # HTN URGENCY # SEVERE BILATERAL RENAL ARTERY STENOSIS - Required nicardipine gtt at OSH - This was titrated off 5/6 in AM; restarted in PM - Renal artery U/S 08/30 showed complete occlusion of R renal artery which is suspected to be chronic. TODAY: Now s/p angiography - unable to perform on R; advanced operative planning underway - On nicardipine gtt - Holding amlodipine - Continued BB - In light of ~4 cm AA, goal SBP < 150 - Appreciate vascular surgery consultation ?? # ACUTE ON CHRONIC SYSTOLIC & DIASTOLIC CHF - Most recent TTE showed EF 35-40% - Pt was on a lasix gtt at OSH but I&O balance not known - Started on IV bolus lasix at [facility] - EKG at OSH showed STD V5-V6 ---> Pt has negative stress test 08/25 - TTE showed - Troponin negative here TODAY: We will hold further lasix in light of increased creatinine - Appears to be approaching euvolemia # CKD STAGE 3-4: - Baseline creatinine ~2 TODAY: Creatinine 2.17 which could b/t lasix vs renal artery stenosis - Holding lasix - Follow renal function closely - Vascular as above # HYPOTHYROIDISM: - Continued levothyroxine Diet Renal diet 2 GM NA Discharge planning N/A PT/OT/Speech Pending Lines/Access PIV Caballero catheter N/A DVT/GI Prophylaxis WILFRED Code status Full Code Family N/A PCP Sanjuanita Lee MD [phone] Attestation IPI Certification I certify that I am a D-H credentialed attending provider with admitting privileges and that the patient meets or has met medical necessity to require an inpatient IPI level of care meeting a minimum of two midnights or is on the [facility] inpatient only procedure list (status C) due to: Acute CHF requiringIV lasix Team (17/11 Coverage) 2500 Chelsea Walters RN - 09/01/2018 4:53 PM EDT 1652- on arrival to pacu, pt is drowsy, easily aroused, oriented x 4. breathins is clear, equal and non labored, however, o2 sat at 88% on 6l via simple mask. Follows commands. Bedrest x 1800. Nicardipine gtt infusing at 5mg/hr from OR. Dr. Mojica, attending anesthesiologist at bs. States given pt hx, keep sats greater than 89%. 1714- Dr. Jasso at bs to eval pt's hypoxia. Plan to order CXR. 1755- XRAY dept made aware of pending stat CXR. 1800 - STAT CXR done. 1810- report called to CARMELITA, rn receiving pt in ISC[facility] bed 81a. [id number] pt care from Rosalia, [employer] WORKER p 30 min break. HOB elevated to 30 degrees after two hours of bedrest s complications from rt femoral access site. con't to monitor. 1914 - Vascular surgery software development intern paged. Notified hob elevated 30 degress p two hours of bedrest s complications. Pending return phone calls. 1927- Leah Cline, vascular surgery resident at for eval. States ok for pt to go back to [facility]. Shannen Isaacs RN - 09/01/2018 4:02 PM EDT Pt to OR for renal stenting in setting of HTN urgency ,nicardepine gtt. CM to follow for updated DC needs. Thom Velasquez - 09/01/2018 5:28 AM EDT Vascular Surgery Inpatient Progress Note ID: Pretty Harmon is a 67 y.o. female with a known history of renal artery stenosis who was admitted on 08/29/2018 with uncontrolled hypertensive urgency 24hr events: ?? No acute events ?? Continues to have adequate UOP, cr increasing to 2.17 from 1.93 ?? Nicardipine between 5-7, now titrating down Subjective: No acute events, states that she is not having any headaches, blurred vision, n/v, otherwise feels well O: Last value Range last 24hrs Temperature Temp: 36.5 ??C (97.7 ??F) Temp: [36.5 ??C (97.7 ??F)-37.2 ??C (99 ??F)] Heart Rate Heart Rate: 74 Heart Rate: [66-85] Blood Pressure BP: 137/61 BP: (116-153)/(48-92) Respiratory Rate Resp: 14 Resp: [11-20] SpO2 SpO2: 90 % SpO2: [88 %-96 %] 08/31 0701 - 09/01 0700 In: 1302.7 [P.O.:655; I.V.:647.7] Out: 1100 [Urine:1100] Physical Exam: General: NAD, resting comfortably, pleasant, conversant HEENT: PERRL, anicteric sclerae CVS: RRR Pulm: CTAB Abd: soft, non-tender, non-distended, non-peritoneal, Skin: warm, dry Ext: no edema Neuro: non-focal, moving all four extremities spontaneously Labs: Recent Labs 09/01/18 0020 08/31/18 0015 08/29/18 2043 WBC 6.7 8.1 8.8 HGB 11.5* 12.1 12.5 HCT 32.9* 34.6* 35.6* PLATELET 220 235 235 PT -- -- 12.2 INR -- -- 1.1 Recent Labs 09/01/181908/31/18 0015 08/30/18 0800 08/29/18 2043 NA 134* 135 138 134* K 4.1 3.9 3.6 3.3* CL 99 98 103 101 CO2 23 23 24 22 BUN 24* 21* 22* 22* CREATININE 2.17* 1.93* 1.88* 1.80* GLUCOSE 117 128 100 193 CALCIUM 7.8* 7.9* 8.4* 8.3* MAGNESIUM 0.86 0.75 0.80 0.74 PHOS -- 3.5 -- -- New Studies: Renal arterial duplex Study pending ASSESSMENT: Pretty Harmon is a 67 y.o. female with bilateral renal artery stenosis who was admitted on with hypertensive urgency likely secondary to her YING and R renal arterial occlusion. Will plan to perform diagnostic/theraputic angio today with Dr. Moody for possible renal artery stenting Recommendations - plan for angiography today, will update patient and team with timing - continue close BP monitoring Appreciate involvement of hospital medicine team . Thom Velasquez MD Valeri Patel RN - 08/31/2018 6:18 PM EDT Pt overall hemodynamically stable; remains on Nicardipine gtt between 5-7.5 mg/hr to maintain SBP < 150. Pt alert and oriented x 4, PERRLA, 5/5 strengths throughout; no numbness/tingling noted. Pt on 4 liters NC with some noted crackles in the bases of her lung. Pt did drop her SpO2 saturation withactivity to bathroom today as well as some overall increased SOB/WOB; MD notified, 40 mg IV Lasix given this evening. Denies any pain/discomfort. Pt received 0.2 mg PRN IV Dilaudid for shortness of breath with good effect. Pt appetite overall pretty poor and not eating more than <25-50% of meals. Pt to be NPO at midnight for bilateral renal artery stenting tomorrow. Voids independently/painlessly; adequate clear, yellow urine. Will continue to monitor at this time. Ren Hoffmann MD - 08/31/2018 4:22 PM EDT Hospital Medicine Attending Daily Progress Note Admit Date: 08/29/2018 Hospital Day 2 days Active Hospital Problems Diagnosis ??? Hypertensive urgency Resolved Hospital Problems No resolved problems to display. PMH Active Non-Hospital Problems Diagnosis ??? Renal artery stenosis ??? Abdominal aortic aneurysm (AAA) without rupture ??? Acute hepatitis ??? Viral hepatitis B acute Inpatient Medications: Scheduled ??? furosemide 40 mg Intravenous Once ??? heparin (Porcine) 5,000 Units Subcutaneous 2 times per day ??? melatonin 3 mg Oral Nightly ??? aspirin 81 mg Oral Daily ??? atorvastatin 40 mg Oral QPM ??? gabapentin 800 mg Oral Nightly ??? levothyroxine 37.5 mcg Oral QAM ??? chlorhexidine 15 mL Oral BID ??? sodium chloride 0.9 % 5 mL Intravenous BID ??? carvedilol 37.5 mg Oral BID WC Continuous infusions: ??? niCARdipine 5 mg/hr (08/31/18 1600) PRN: HYDROmorphone, sodium chloride 0.9 %, lidocaine, acetaminophen Interval History: - Nicardipine gtt restarted yesterday at approximately 2000 - Pt starting to feel more SOB ROS: No chest pain, abdominal pain, nausea, vomiting Physical Exam Vitals Range last 24 hrs Temperature Temp: [36.8 ??C (98.2 ??F)-37.3 ??C (99.1 ??F)] Heart Rate Heart Rate: [68-86] Blood Pressure BP: (116-157)/(53-92) Respiratory Rate Resp: [11-31] SpO2 SpO2: [93 %-97 %] Intake/Output Summary (Last 24 hours) at 08/31/2018 1622 Last data filed at 08/31/2018 1600 Gross per 24 hour Intake 1260.9 ml Output 1805 ml Net -544.1 ml Patient Vitals for the past 168 hrs: Weight 08/31/18 0600 47 kg (103 lb 9.9 oz) 08/29/18 1832 47.4 kg (104 lb 8 oz) 08/29/18 1827 47.4 kg (104 lb 8 oz) Body mass index is 19.58 kg/m??. GEN: Resting in bed, NAD HEENT: NCAT, OP clear NECK: Thin COR: +S1S2 PULM: Crackles at bases, increased WOB ABDO: + NABS in 4Q, soft NTND EXT: MAEE LYMPH: Trace-1+ LE edema NEURO: Alert, oriented Studies reviewed in eDH. Remarkable for the following: LABS: Last 3 wbc, hgb, hct plt Recent Labs 08/31/18 0015 08/29/18 2043 WBC 8.1 8.8 HGB 12.1 12.5 HCT 34.6* 35.6* PLATELET 235 235 Last 3 Lytes Recent Labs 08/31/18 0015 08/30/18 0800 08/29/18 2043 NA 135 138 134* K 3.9 3.6 3.3* CL 98 103 101 CO2 23 24 22 BUN 21* 22* 22* CREATININE 1.93* 1.88* 1.80* FSBG Trend Recent Labs 08/29/18 1831 POCGLU 115 MICRO: No results for input(s): URINECULTURE in the last 720 hours. No results for input(s): GRAMSTAIN, BFCX, LOWERRESPCX, TISSUECX in the last 720 hours. No results for input(s): BLOODCX in the last 720 hours. ECG: Recent Labs 08/29/18 2101 DIAGLINE Normal sinus rhythm Possible Left atrial enlargement Left ventricular hypertrophy with repolarization abnormality Abnormal ECG No previous ECGs available Confirmed by MD Oliver, Frantz Preston ([id number]) on 08/30/2018 7:51:46 AM QTCCALC 476 VASCULAR: Recent Labs 08/30/18 1939 VBTEXTRPT Department: Vascular Surgery Lab Patient: [id number] (PRETTY HARMON) CPT: 23749 ICD10: I70.1 Referring Physician: LILIANA ECHEVERRIA Indications: HTN crisis ICD10 Diagnosis Code: I70.1 Findings: Syl Renal Aorta PSV (cm/s): 39 EDV (cm/s): 0 Renal Artery Mid, Right PSV (cm/s): 45 EDV (cm/s): 17 RAR: 1.2 RI: 0.62 Renal Artery Distal, Right PSV (cm/s): 40 EDV (cm/s): 17 RAR: 1.0 RI: 0.58 Mid Pole Renal Parenchyma, Right PSV (cm/s): 13 EDV (cm/s): 0 RI: 1.00 Lower Pole Renal Parenchyma, Right PSV (cm/s): 13 EDV (cm/s): 0 RI: 1.00 Renal Hilum, Right AT (ms): 175 Kidney Length, Right Length (cm): 9.9 Renal Vein, Right Patent: Patent Renal Artery Ostium, Left PSV (cm/s): 177 EDV (cm/s): 17 RAR: 4.5 RI: 0.91 Renal Artery Proximal, Left PSV (cm/s): 177 EDV (cm/s): 12 RAR: 4. 5 RI: 0.93 Renal Artery Mid, Left PSV (cm/s): 95 EDV (cm/s): 10 RAR: 2.4 RI: 0.90 Renal Artery Distal, Left PSV (cm/s): 60 EDV (cm/s): 0 RAR: 1.5 RI: 1.00 Mid Pole Renal Parenchyma, Left PSV (cm/s): 61 EDV (cm/s): 14 RI: 0.77 Lower Pole Renal Parenchyma, Left PSV (cm/s): 38 EDV (cm/s): 8 RI: 0.79 Renal Hilum, Left AT (ms): 34 Kidney Length, Left Length (cm): 10.4 Renal Vein, Left Patent: Patent Interpretation: Patent aortic aneurysm with mural thrombus, maximum perirenal diameter is 3.6 cm. Previous study on 02/24/18 was 3.1 cm with what appears to be less mural thrombus compared to today's exam. Right: Suspect proximal renal artery occlusion with reconstitution of the mid segment. Doppler waveforms are consistent with abnormally elevated parenchymal resistance. Significant progression of stenosis compared to the previous exam. Left: Patent main lisa l artery with no evidence of hemodynamically significant stenosis. Higher velocities (255 cm/s) were not seen on today's exam. No significant change compared to previous exam. Dr. Moody was notified of the results. Electronically Signed by: LEAH PEREZ on 2018-08-31 02:05:36 PM End of Report IMAGING: TTE 08/30/18: SUMMARY: ?? 1. Mild concentric left ventricular hypertrophy is [...] remainder of report for additional findings. 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 ADDITIONAL HISTORY: The patient was treated at OSH with a nicardipine gtt & lasix gtt. She initially required BiPAP for acute hypoxic respiratory failure but had been off BiPAP for ~ 36 hours by the time she was transferred. Due to ongoing need for nicardipine gtt, she was transferred to [facility] for consideration of renal artery interventions. Plan:?? # HTN URGENCY # SEVERE BILATERAL RENAL ARTERY STENOSIS - Required nicardipine gtt at OSH - This was titrated off 5/6 in AM; restarted in PM TODAY: Renal ultrasound shows complete occlusion of R renal artery which is suspected to be chronic.We are planning of angiography tomorrow - NPO after MN - On nicardipine gtt - Holding amlodipine - Continued BB - In light of ~4 cm AA, goal SBP < 150 - Appreciate vascular surgery consultation ?? # ACUTE ON CHRONIC SYSTOLIC & DIASTOLIC CHF - Most recent TTE showed EF 35-40% - Pt was on a lasix gtt at OSH but I&O balance not known - Started on IV bolus lasix at [facility] - EKG at OSH showed STD V5-V6 ---> Pt has negative stress test 08/25 - TTE showed TODAY: Based on increasing respiratory symptoms we will give lasix today. - Give 40 mg IV lasix now - IV dilaudid 0.2 mg Q4H PRN air hunger - Appears to be approaching euvolemia - Follow up TTE today - Troponin negative here # CKD STAGE 3-4: - Baseline creatinine ~2 TODAY: Creatinine holding - Follow renal function closely - Vascular as above # HYPOTHYROIDISM: - Continued levothyroxine Diet Cardiac diet NPO diet (Give Meds) Discharge planning N/A PT/OT/Speech Pending Lines/Access PIV Caballero catheter N/A DVT/GI Prophylaxis WILFRED Code status Full Code Family N/A PCP Sanjuanita Lee MD [phone] Attestation IPI Certification I certify that I am a D-H credentialed attending provider with admitting privileges and that the patient meets or has met medical necessity to require an inpatient IPI level of care meeting a minimum of two midnights or is on the [facility] inpatient only procedure list (status C) due to: Acute CHF requiringIV lasix Team (17/11 Coverage) 2500 Thom Velasquez - 08/31/2018 5:27 AM EDT Vascular Surgery Inpatient Progress Note ID: Pretty Harmon is a 67 y.o. female with a known history of renal artery stenosis who was admitted on 08/29/2018 with uncontrolled hypertensive urgency 24hr events: ?? Renal duplex demonstrated occluded R renal artery at origin ?? Continues to have adequate UOP ?? Nicardipine up to 10, now titrating down Subjective: No acute events, states that she is not having any headaches, blurred vision, n/v, otherwise feels well O: Last value Range last 24hrs Temperature Temp: 37.3 ??C (99.1 ??F) Temp: [36.4 ??C (97.5 ??F)-37.3 ??C (99.1 ??F)] Heart Rate Heart Rate: 68 Heart Rate: [62-86] Blood Pressure BP: 129/54 BP: (129-162)/(53-75) Respiratory Rate Resp: (!) 31 Resp: [12-31] SpO2 SpO2: 97 % SpO2: [90 %-97 %] 08/30 700 - 08/31 699 In: 1649.9 [P.O.:1360; I.V.:289.9] Out: 190 [Urine:190] Physical Exam: General: NAD, resting comfortably, pleasant, conversant HEENT: PERRL, anicteric sclerae CVS: RRR Pulm: CTAB Abd: soft, non-tender, non-distended, non-peritoneal, Skin: warm, dry Ext: no edema Neuro: non-focal, moving all four extremities spontaneously Labs: Recent Labs 08/31/18 0015 08/29/18 2043 WBC 8.1 8.8 HGB 12.1 12.5 HCT 34.6* 35.6* PLATELET 235 235 PT -- 12.2 INR -- 1.1 Recent Labs 08/31/18 0015 08/30/18 0800 08/29/18 2043 NA 135 138 134* K 3.9 3.6 3.3* CL 98 103 101 CO2 23 24 22 BUN 21* 22* 22* CREATININE 1.93* 1.88* 1.80* GLUCOSE 128 100 193 CALCIUM 7.9* 8.4* 8.3* MAGNESIUM 0.75 0.80 0.74 PHOS 3.5 -- -- New Studies: Renal arterial duplex Study pending ASSESSMENT: Pretty Harmon is a 67 y.o. female with bilateral renal artery stenosis who was admitted with hypertensive urgency likely secondary to her YING and R renal arterial occlusion. Will plan to perform diagnostic/theraputic angio on Thursday with Dr. Moody, please make NPO after midnight tonight. recommendations - plan for angiography tomorrow - npo at midnight for angiography tomorrow - continue close BP monitoring Appreciate involvement of hospital medicine team . Thom Velasquez MD Leah Cline MD - 08/30/2018 6:07 PM EDT Vasc update Duplex showed R renal origin occluded, L remains w stenosis Dr Moody would prefer to do her case himself He is at [facility] tomorrow therefore plan for renal stent (bilat) on Thursday Pt seen at bedside w Dr Fransisco Scott. MD Marlyn/SANDY, PGY-5 Section of Vascular Surgery, Pager [phone] Ren Hoffmann MD - 08/30/2018 8:38 AM EDT Hospital Medicine Attending Daily Progress Note Admit Date: 08/29/2018 Hospital Day 1 day Active Hospital Problems Diagnosis ??? Hypertensive urgency Resolved Hospital Problems No resolved problems to display. PMH Active Non-Hospital Problems Diagnosis ??? Renal artery stenosis ??? Abdominal aortic aneurysm (AAA) without rupture ??? Acute hepatitis ??? Viral hepatitis B acute Inpatient Medications: Scheduled ??? aspirin 81 mg Oral Daily ??? atorvastatin 40 mg Oral QPM ??? gabapentin 800 mg Oral Nightly ??? levothyroxine 37.5 mcg Oral QAM ??? furosemide 40 mg Intravenous BID ??? chlorhexidine 15 mL Oral BID ??? sodium chloride 0.9 % 5 mL Intravenous BID ??? enoxaparin 30 mg Subcutaneous Nightly ??? carvedilol 37.5 mg Oral BID WC Continuous infusions: ??? niCARdipine Stopped (08/30/18 0400) PRN: sodium chloride 0.9 %, lidocaine, acetaminophen Interval History: - Nicardipine gtt stopped as of ~0600 this AM. - Pt is getting U/S at the time of my visit. - No new symptoms to report ROS: No chest pain, worsening SOB, abdominal pain, nausea, vomiting Physical Exam Vitals Range last 24 hrs Temperature Temp: [36.8 ??C (98.2 ??F)-38.3 ??C (100.9 ??F)] Heart Rate Heart Rate: [62-85] Blood Pressure BP: (131-173)/(60-76) Respiratory Rate Resp: [12-22] SpO2 SpO2: [92 %-96 %] Intake/Output Summary (Last 24 hours) at 08/30/2018 0838 Last data filed at 08/30/2018 0600 Gross per 24 hour Intake 600 ml Output 900 ml Net -300 ml Patient Vitals for the past 168 hrs: Weight 08/29/18 1832 47.4 kg (104 lb 8 oz) 08/29/18 1827 47.4 kg (104 lb 8 oz) Body mass index is 19.74 kg/m??. GEN: Resting in bed, NAD HEENT: NCAT, OP clear NECK: Thin COR: +S1S2 PULM: Crackles at bases ABDO: + NABS in 4Q, soft NTND EXT: MAEE LYMPH: Trace-1+ LE edema NEURO: Alert, oriented Studies reviewed in eDH. Remarkable for the following: LABS: Last 3 wbc, hgb, hct plt Recent Labs 08/29/182042 WBC 8.8 HGB 12.5 HCT 35.6* PLATELET 235 Last 3 Lytes Recent Labs 08/29/18204207/19/18 0907 06/14/18 1022 NA 134* 139 140 K 3.3* 3.1* 3.9 CL 101 100 101 CO2 22 24 23 BUN 22* 32* 48* CREATININE 1.80* 1.97* 2.06* FSBG Trend Recent Labs 08/29/18 1831 POCGLU 115 MICRO: No results for input(s): URINECULTURE in the last 720 hours. No results for input(s): GRAMSTAIN, BFCX, LOWERRESPCX, TISSUECX in the last 720 hours. No results for input(s): BLOODCX in the last 720 hours. ECG: Recent Labs 08/29/182100 DIAGLINE Normal sinus rhythm Possible Left atrial enlargement Left ventricular hypertrophy with repolarization abnormality Abnormal ECG No previous ECGs available Confirmed by MD Oliver, Frantz Preston ([id number]) on 08/30/2018 7:51:46 AM QTCCALC 476 VASCULAR: No results for input(s): VBTEXTRPT in the last 720 hours. 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 ADDITIONAL HISTORY: The patient was treated at OSH with a nicardipine gtt & lasix gtt. She initially required BiPAP for acute hypoxic respiratory failure but had been off BiPAP for ~ 36 hours by the time she was transferred. Due to ongoing need for nicardipine gtt, she was transferred to [facility] for consideration of renal artery interventions. Plan:?? # HTN URGENCY # SEVERE BILATERAL RENAL ARTERY STENOSIS - Required nicardipine gtt at OSH TODAY: Nicardipine gtt titrated of this AM. HTN is contributed to by YING bilaterally. We are awaiting renal ultrasound studies. - Holding amlodipine today - Continued BB - In light of ~4 cm AA, goal SBP < 150 - Follow up renal artery U/S - Appreciate vascular surgery consultation - NPO for now ?? # ACUTE ON CHRONIC SYSTOLIC & DIASTOLIC CHF - Most recent TTE showed EF 35-40% - Pt was on a lasix gtt at OSH but I&O balance not known - Started on IV bolus lasix at [facility] - EKG at OSH showed STD V5-V6 ---> Pt has negative stress test 08/25 TODAY: Awaiting AM labs - Appears to be approaching euvolemia - Continue IV lasix for now - Follow up TTE today - Troponin negative here # CKD STAGE 3-4: - Baseline creatinine ~2 TODAY: Awaiting AM labs - Follow renal function closely - Vascular as above # HYPOTHYROIDISM: - Continued levothyroxine Diet NPO diet (Give Meds) Discharge planning N/A PT/OT/Speech Pending Lines/Access PIV Caballero catheter N/A DVT/GI Prophylaxis Lovenox Code status Full Code Family N/A PCP Sanjuanita Lee MD [phone] Attestation IPI Certification I certify that I am a D-H credentialed attending provider with admitting privileges and that the patient meets or has met medical necessity to require an inpatient IPI level of care meeting a minimum of two midnights or is on the [facility] inpatient only procedure list (status C) due to: Acute CHF requiringIV lasix Team (17/11 Coverage) 2500 RonThom Benjamin - 08/30/2018 7:45 AM EDT Vascular Surgery Inpatient Progress Note ID: Pretty Hamron is a 67 y.o. female with a known history of renal artery stenosis who was admitted on 08/29/2018 with uncontrolled hypertensive urgency 24hr events: ?? Admitted overnight to medicine ?? Blood pressure well controlled, nicardipine now titrated off Subjective: No acute events, states that she is not having any headaches, blurred vision, n/v, otherwise feels well O: Last value Range last 24hrs Temperature Temp: 36.8 ??C (98.2 ??F) Temp: [36.8 ??C (98.2 ??F)-38.3 ??C (100.9 ??F)] Heart Rate Heart Rate: 65 Heart Rate: [62-85] Blood Pressure BP: 153/75 BP: (131-173)/(60-76) Respiratory Rate Resp: 12 Resp: [12-22] SpO2 SpO2: 96 % SpO2: [92 %-96 %] 08/29 0701 - 08/30 0700 In: 600 [P.O.:600] Out: 900 [Urine:900] Physical Exam: General: NAD, resting comfortably, pleasant, conversant HEENT: PERRL, anicteric sclerae CVS: RRR Pulm: CTAB Abd: soft, non-tender, non-distended, non-peritoneal, Skin: warm, dry Ext: no edema Neuro: non-focal, moving all four extremities spontaneously Labs: Recent Labs 08/29/182042 WBC 8.8 HGB 12.5 HCT 35.6* PLATELET 235 PT 12.2 INR 1.1 Recent Labs 08/29/182042 NA 134* K 3.3* CL 101 CO2 22 BUN 22* CREATININE 1.80* GLUCOSE 193 CALCIUM 8.3* MAGNESIUM 0.74 New Studies: Renal arterial duplex Study pending ASSESSMENT: Pretty Harmon is a 67 y.o. female with bilateral renal artery stenosis who was admitted on with hypertensive urgency likely secondary to her YING. Blood pressure now controlled. Will plan for renal arterial duplex this AM with likely angiography tomorrow. recommendations - follow up renal artery duplex - npo at midnight for angiography tomorrow - continue close BP monitoring Appreciate involvement of hospital medicine team . Thom Velasquez MD documented in this encounter H&P Notes Emanuel Shrestha MD - 09/07/2018 5:35 PM EDT CRITICAL CARE SERVICE ADMISSION HISTORY AND PHYSICAL HPI: Pretty Harmon is a 67 y.o. female with a history of multiple admissions for flash pulmonary edemain the setting of proximal occlusion of the right renal artery. She has a history of CHF (EF 30%), CKD, and bilateral renal artery stenosis and was admitted on 08/29/2018 with hypertensive urgency and acute combined diastolic and systolic heart failure. She underwent angiography last week, at which timethe right renal occlusion was unable to be intervened upon. She was taken to the operating room today with Vascular Surgery for right external iliac to right renal bypass with right greater saphenous vein. EBL was 200cc. She was on nicardipine 2.5 throughout the case. She received 800cc of fluid. Her creatinine prior to surgery was 2-2.5, and her last EF was 55%. Upon arrival to the SICU, the patient was extubated and stable. She complains of abdominal pain, buthas no other issues. PMH: Past Medical History: Diagnosis Date ??? AAA (abdominal aortic aneurysm) [id number] angiogram; 3.2 cm infrarenal ??? Constipation ??? [...] (WRVU 6.99) performedby Greyson Chen MD at [facility] MAIN OR ??? PRO UPPER GI ENDOSCOPY, DIAGNOSTIC 01/20/2014 EGD, UPPER GI ENDOSCOPY performed by Corby Cano MD at [facility] ENDOSCOPY ??? PRO UPPER GI ENDOSCOPY, DIAGNOSTIC N/A 07/28/2017 EGD, UPPER GI ENDOSCOPY performed by Snow Liao MD at [facility] ENDOSCOPY ALL: Allergies Allergen Reactions ??? Lisinopril Rise in creatinine MEDS: Medications Prior to Admission Medication Sig Dispense Refill Last Dose ??? levothyroxine (SYNTHROID) 25 mcg Tablet Take 37.5 mcg by mouth daily. ??? isosorbide mononitrate (IMDUR) 30 mg Tablet Sustained Release 24 hr Take 30 mg by mouth daily. ??? potassium chloride (K-DUR/KLOR-CON) 10 mEq Tablet Sustained Release Take 2 tablets by mouth 2 times daily. 120 tablet 3 Past Week at Unknown time ??? aspirin 81 mg Tablet, Delayed Release (E.C.) Take 81 mg by mouth daily. 08/29/2018 at Unknown time ??? furosemide (LASIX) 20 mg Tablet Take 20 mg by mouth every other day. Past Week at Unknown time ??? carvedilol (COREG) 25 mg Tablet Take 37.5 mg by mouth daily. Patient takes 1 1/2 tablets daily. 08/29/2018 at Unknown time ??? atorvastatin (LIPITOR) 40 mg Tablet TAKE ONE TABLET BY MOUTH EVERY DAY 3 08/28/2018 at Unknown time ??? cholecalciferol, Vitamin D3, (VITAMIN D) 1,000 unit Tablet Take 1,000 Units by mouth. Past Week at Unknown time ??? gabapentin (NEURONTIN) 800 mg Tablet Take 800 mg by mouth nightly. 08/28/2018 at Unknown time ??? amlodipine (NORVASC) 10 mg tablet Take 10 mg by mouth daily. Past Week at Unknown time FH: Family History Problem Relation Age of Onset ??? Hypertension Mother ??? Cervical Cancer Mother ??? Chronic Obstructive Pulmonary Disease Father ??? Hypertension Sister SH: Social History Socioeconomic History ??? Marital status: [...] Former Smoker Packs/day: 0.50 ??? Smokeless tobacco: Former User Quit date: 07/14/2012 ??? Tobacco comment: smoked for ~45 years up to 1 ppd at [facility], quit ~2000 Substance and Sexual Activity ??? [...] file Gets together: Not on file Attends buddhist service: Not on file Active member of [...] [employer] of 50 years. 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 Hoping to retire 11/2018 and travel throughout [facility] and [place] with [employer]. No history of heavy etoh use 2 children healthy ROS: Positive as above and for abdominal pain, otherwise negative. VITALS: Temp: 36.9 ??C (98.4 ??F), Temp: [36.9 ??C (98.4 ??F)-37.4 ??C (99.3 ??F)] Heart Rate: 60, Heart Rate: [60-75] BP: 160/67, BP: (145-160)/(56-69) BP (Arterial Line): -- Resp: 15, Resp: [13-22] SpO2: 93 %, SpO2: [93 %-97 %] EXAM: Gen: NAD, appropriately somnolent post-operatively Neuro: Moving all 4 extremities equally. Some agitation picking at lines. CV: +S1/S2, RRR, no M/R/G Pulm: normal effort, anterior lung carranza CTAB Abd: Dressing partially soaked through with sanguinous. Incision site stapled without dehiscence or visible active oozing. Appropriately tender to palpation. Extrem: WWP, no KAREN LABS: Recent Labs 09/07/18203409/07/182909/06/18 06 WBC 24.2* 11.7* 10.6* HGB 12.7 11.9 13.2 HCT 36.6 34.4* 38.1 PLATELET 223 223 228 No results for input(s): PT, PTT, INR in the last 168 hours. Recent Labs 09/07/18203409/07/182909/06/18 1710 09/06/18 0855 09/03/18 0655 09/03/18 003 NA 137 136 -- 136 < > 131* 133* K 4.5 4.4 3.3* 2.9* < > 5.2* 4.7 CL 96* 97* -- 96* < > 99 98 CO2 25 27 -- 26 < > 19* 20* BUN 40* 39* -- 37* < > 50* 48* CREATININE 2.85* 2.51* -- 2.34* < > 2.80* 2.89* GLUCOSE 199 -- -- -- -- 140 172 < > = values in this interval not displayed. Recent Labs 09/07/18203409/07/182909/06/18 0855 09/06/18 0600 09/05/18 0150 09/03/18 0035 09/02/18 0329 CALCIUM 8.8 8.5 8.3* 8.9 8.5 < > 8.2* 8.5 MAGNESIUM -- 0.84 -- 0.88 1.24* < > 0.95 0.97 PHOS -- -- -- -- -- -- 4.4 6.2* < > = values in this interval not displayed. No results for input(s): AST, ALT, ALKPHOS, BILITOT, BILIDIR, AMYLASE, LIPASE in the last 168 hours. Recent Labs 09/07/18 1549 PHART 7.45 [id number] 39 PO2ART 86 VHG0IDU 60 BEART 2.4 Lactate: 1.1 ASSESSMENT/PLAN: Pretty Harmon is a 67 y.o. female with a history of CHF, CKD, and hypertensive urgency and recurrent flash pulmonary edema in the setting of right renal artery stenosis requiring open right external iliac to right renal bypass, being admitted to the SICU post-op for management of respiratory status, fluid balance, and renal function. NEURO: - pain: Dilaudid, acetaminophen, ketamine drip ordered due to persistent 10/10 abdominal pain - sedation: none CV: - goal SBP: 100-160 - Metoprolol 2.5 q6h - Nicardipine 0.2mg/ml - Aspirin suppository 300mg qd - Lasix 80mg once post-op PULM: - Duoneb QID PRN GI: - NPO hold meds - Tums - Zofran 4mg q8h prn /FEN: - IVF: NS @ 100 cc/hr - goal UOP / fluid goal: >20cc/hr - NG tube placed - Potassium replacement protocol ID: - None HEME: - Hgb 12.7 ENDO: - Synthroid MSK/ACTIVITY: - no active issues PPX: - GI: Tums - DVT: SubQ heparin 5k q12h L/T/D: - NGT - A line left - Triple lumen RIJ - PIV - Caballero PRIMARY: Vascular Surgery CONSULTS: Nephrology CODE: Full Code DISPO: admit to ICU, Critical Care Red 1 Team Emanuel Shrestha MD 09/07/2018 9:57 PM Adriano Howell MD - 09/03/2018 3:20 AM EDT Critical Care Medicine Admission History and Physical Patient Name: Pretty Harmon Service: Critical Care Medicine - [place] Team Responsible Attending: Ren Hoffmann MD, MD PCP: Sanjuanita Lee MD PCP phone #: [phone] ID/Chief Complaint: 67 yo F with a history of combined systolic and diastolic HF (last EF 54% on 08/30/18), moderate MR, hepatitis B, AAA (3.7 cm), bilateral renal artery stenosis, CKD being admitted to the ICU for increased work of breathing and fluid overload in the setting of an GAEL. History of Present Illness: 67 yo F with a history of combined systolic and diastolic HF (last EF 54% on 08/30/18), moderate MR, hepatitis B, AAA (3.7 cm), bilateral renal artery stenosis (multiple recent admissions for hypertensive urgency), and CKD who initially [facility] with hypertensive urgency and acute on chronic diastolic HF. She was treated with a nicardipine gtt and lasix gtt, and she required BiPAP initially. Due to her persistent need for the nicardipine gtt, she was transferred to [facility] for consideration of renal artery interventions. Pt was admitted to hospital medicine on 08/29/18, and she has been followed by vascular surgery. She underwent renal artery duplex on 08/30/18, which showed proximal occlusion of the R renal artery. On 09/01/18, vascular surgery attempted intervention but was unable to intervene on occluded R stenosis. The L artery was more patent than expected and no intervention was performed. Pt developed an GAEL on CKD - likely due to the contrast load during the angiogram. Nephrology was consulted, and they indicated no need for dialysis at this time. Nicardipine discontinued 09/02/18 due to concern of poor kidney perfusion. Pt is currently fluid overloaded. CXR showed pulmonary edema, and the pt required 6 L NC. She developed worsening shortness of breath and required high flow nasal cannula. IV fluids were stopped. She also complained of chest pressure, and sublingual nitro given. ECG showed no acute ischemia and troponin was negative. Pt started on BiPAP and was admitted to the ICU for further management. Review of Systems: Negative except for HPI Problem List/Past Medical History Patient Active Problem List Diagnosis ??? Hypertensive urgency ??? Renal artery stenosis ??? Abdominal aortic aneurysm (AAA) without rupture ??? Acute hepatitis ??? Viral hepatitis B acute Meds: No current facility-administered medications on file prior to encounter. Current Outpatient Medications on File Prior to Encounter Medication Sig Dispense Refill ??? levothyroxine (SYNTHROID) 25 mcg Tablet Take 37.5 mcg by mouth daily. ??? isosorbide mononitrate (IMDUR) 30 mg Tablet Sustained Release 24 hr Take 30 mg by mouth daily. ??? potassium chloride (K-DUR/KLOR-CON) 10 mEq Tablet Sustained Release Take 2 tablets by mouth 2 times daily. 120 tablet 3 ??? aspirin 81 mg Tablet, Delayed Release (E.C.) Take 81 mg by mouth daily. ??? furosemide (LASIX) 20 mg Tablet Take 20 mg by mouth every other day. ??? carvedilol (COREG) 25 mg Tablet Take 37.5 mg by mouth daily. Patient takes 1 1/2 tablets daily. ??? atorvastatin (LIPITOR) 40 mg Tablet TAKE ONE TABLET BY MOUTH EVERY DAY 3 ??? cholecalciferol, Vitamin D3, (VITAMIN D) 1,000 unit Tablet Take 1,000 Units by mouth. ??? gabapentin (NEURONTIN) 800 mg Tablet Take 800 mg by mouth nightly. ??? amlodipine (NORVASC) 10 mg tablet Take 10 mg by mouth daily. Allergies: Allergies Allergen Reactions ??? Lisinopril Rise in creatinine Family History: Family History Problem Relation Age of Onset ??? Hypertension Mother ??? Cervical Cancer Mother ??? Chronic Obstructive Pulmonary Disease Father ??? Hypertension Sister Social History: Social History Tobacco Use ??? Smoking status: Former Smoker Packs/day: 0.50 ??? Smokeless tobacco: Former User Quit date: 07/14/2012 ??? Tobacco comment: smoked for ~45 years up to 1 ppd at max, quit ~1999 Substance Use Topics ??? Alcohol use: Yes Comment: a few glasses of wine, rarely 4 times a year ??? Drug use: No Vitals: Last value Range last 24 hrs Temperature Temp: 36.4 ??C (97.5 ??F) Temp: [36.4 ??C (97.5 ??F)-37 ??C (98.6 ??F)] Heart Rate Heart Rate: 80 Heart Rate: [65-80] Blood Pressure BP: 152/84 BP: (125-158)/(50-98) Respiratory Rate Resp: 13 Resp: [10-26] SpO2 SpO2: 91 % SpO2: [86 %-94 %] I/O last 3 completed shifts: In: 2619.4 [P.O.:445; I.V.:2174.4] Out: 980 [Urine:975; Blood:5] Examination: General: Pleasant, alert, appropriate, in NAD. Appears stated age. HEENT: EOMI, PERRL, anicteric sclera. Neck: Supple with normal ROM. Lymph: No obvious cervical, axillary, epitrochlear or inguinal LAD Cardiac: Normal S1 and S2, Regular rate and rhythm; No murmrs/gallops/rubs. Respiratory: Nonlabored. Bilateral rales noted at lung bases Abd: + BS; soft, non-tender, non-distended, no obvious masses. Ext: Trace pitting edema in bilateral lower extremities Neuro: Alert and orientated, no-focal deficits Skin: Bruising around R femoral insertion site, no active bleeding Lines: - Peripheral IV L AC (20 gauge) Laboratory: Recent Labs 09/02/18 1407 09/01/18 0020 08/31/18 0015 08/29/18 2043 WBC 9.7* 6.7 8.1 8.8 HGB 11.8 11.5* 12.1 12.5 HCT 33.5* 32.9* 34.6* 35.6* PLATELET 229 220 235 235 NEUTROABS 8.46* -- -- 5.36 Recent Labs 09/03/18 0035 09/02/18 0329 09/01/18 0020 NA 133* 134* 134* K 4.7 4.8 4.1 CL 98 98 99 CO2 20* 20* 23 BUN 48* 36* 24* CREATININE 2.89* 2.71* 2.17* No results for input(s): AST, ALT, ALKPHOS, BILITOT, BILIDIR in the last 168 hours. Recent Labs 09/03/18 0035 09/02/18 0329 09/01/18 0020 08/31/18 0015 CALCIUM 8.2* 8.5 7.8* 7.9* MAGNESIUM 0.95 0.97 0.86 0.75 PHOS 4.4 6.2* -- 3.5 Recent Labs 08/29/182042 PT 12.2 No results for input(s): LDH, URICACID in the last 168 hours. Other Labs: None Relevant Diagnostic Studies: CXR- 09/03/18 Pulmonary vascular congestion and interstitial edema. Pleural effusions and bibasilar atelectasis. ASSESSMENT: 67 yo F with a history of combined systolic and diastolic HF (last EF 54% on 08/30/18), moderate MR, hepatitis B, AAA (3.7 cm), bilateral renal artery stenosis, CKD being admitted to the ICU for increased work of breathing and fluid overload in the setting of an GAEL. PLAN: # ACUTE ON CHRONIC SYSTOLIC & DIASTOLIC CHF - Most recent TTE (08/30/18) showed EF 54% - Lasix currently being held due to GAEL on CKD - BiPAP - No longer having chest pressure - ECG showed no acute ischemia - Initial troponin negative - repeat troponin pending (7am) # HTN URGENCY # SEVERE BILATERAL RENAL ARTERY STENOSIS - Renal artery U/S 08/30 showed complete occlusion of R renal artery which is suspected to be chronic. - Pt was taken for angiography on 09/01; unable to cannulate the R renal artery - no interventions on the L - Nicardipine gtt discontinued - SBP goal now 130-170 - Holding amlodipine - Continue BB - Appreciate vascular surgery consultation ?? # GAEL CKD STAGE 3-4: - Baseline creatinine ~2 - Creatinine 2.71 today with oliguria, which is concerning due to the recent contrast load and lasixin the setting of her CKD - Currently holding IV fluids due to respiratory symptoms - Watch volume status closely - Holding lasix - Follow renal function closely - Vascular as above - Appreciate nephrology consultation ?? # HYPOTHYROIDISM: - Continued levothyroxine Admit to Critical Care Code Status: Full Adriano Howell MD Emergency Medicine, PGY-2 Critical Care Blue 2, #[id number] Liliana Echeverria MD - 08/29/2018 4:44 PM EDT Inpatient Hospital Medicine - Admission Note Problem List: Active Hospital Problems Diagnosis ??? Hypertensive urgency Resolved Hospital Problems No resolved problems to display. Active Non-Hospital Problems Diagnosis ??? Renal artery stenosis ??? Abdominal aortic aneurysm (AAA) without rupture ??? Acute hepatitis ??? Viral hepatitis B acute ID: 67 y.o. Female presents to [facility] with hypertensive urgency History of Present Illness: HPI 67 yo woman with of combined systolic and diastolic CHF (EF 30%), moderate MR, 3.7 cm AAA, h/o acuteviral hepatitis (B), bilat renal artery stenosis followed by vascular, and CKD Cr ~2 presented to [facility] w hypertensive urgency and acute on chronic diastolic CHF. Nitroglycerin drip was ineffective and nicardipine was started. nitially required BIPAP. Off since 5/ am.Was placed on nitro drip originally and admitted to ICU. Nitroglycerin was Unable to wean nicardipine and transferred here for consideration of vascular intervention of bilateral renal artery stenosis. Admitted elsewhere in Mar 2018 (reports in scanned docs) for hypertensive urgency, demand ischemia and acute systolic/diastolic CHF. EF on echo 04/21 EF 35-40%, diffuse HK, diastolic dysfunction. pulm htn 50-55, and mod MR. Was subsequently admitted on in May, June/July and this [facility]. Feels fine in between episodes. Develops symptoms with sudden onset. Had notes BP tend to be in 130;s )checks multiple times a day. No drug use, no OTC or herbal medications. Takes her medications faithfully. Had been seeing renal and vascular re: YING. Renal had recommended trial of medications previously though she has had ongoing h ospitalizations (she was supposed to followup tomorrow) No chest pain or pressure unless in one of the episodes. Of note she walks a mile a day M-F at her work. Does not feel limited by breathing except during these episodes. Per her and reports hadneg stress test on 08/25 On lasix 20 mg qod, carvedilol 37.5 mg po bid and amlodipine 10 mg for BP control. Review of Systems: Review of Systems Constitutional: Negative for chills and fever. Weight been steady in 104 range --down from 115 previous to March HENT: Negative for congestion. Eyes: Negative for visual disturbance. Respiratory: Positive for shortness of breath. Negative for cough and wheezing. Chest tightness when having episodes Cardiovascular: Negative for chest pain, palpitations and leg swelling. Gastrointestinal: Negative for abdominal pain, blood in stool, nausea and vomiting. Occasional loose stools but not recently Endocrine: Negative for polyuria. Genitourinary: Negative for difficulty urinating and dysuria. Musculoskeletal: Negative for arthralgias and gait problem. Skin: Negative for rash. Allergic/Immunologic: Negative for immunocompromised state. Neurological: Negative for dizziness, weakness, light-headedness and headaches. Psychiatric/Behavioral: Negative for confusion. Past Medical and Surgical History: Past Medical History: Diagnosis Date ??? AAA (abdominal aortic aneurysm) [id number] angiogram; 3.2 cm infrarenal ??? Constipation ??? Dyslipidemia ??? Hypertension ??? Insomnia ??? Peripheral vascular disease ??? Renal artery stenosis R; per 2009 angiogram Past Surgical History: Procedure Laterality Date ??? HYSTERECTOMY ??? PRO UPPER GI ENDOSCOPY, DIAGNOSTIC 01/20/2014 EGD, UPPER GI ENDOSCOPY performed by Corby Cano MD at [facility] ENDOSCOPY ??? PRO UPPER GI ENDOSCOPY, DIAGNOSTIC N/A 07/28/2017 EGD, UPPER GI ENDOSCOPY performed by Snow Liao MD at [facility] ENDOSCOPY Prior To Admission Medications: Medications Prior to Admission Medication Sig Dispense Refill Last Dose ??? levothyroxine (SYNTHROID) 25 mcg Tablet Take 37.5 mcg by mouth daily. ??? isosorbide mononitrate (IMDUR) 30 mg Tablet Sustained Release 24 hr Take 30 mg by mouth daily. ??? potassium chloride (K-DUR/KLOR-CON) 10 mEq Tablet Sustained Release Take 2 tablets by mouth 2 times daily. 120 tablet 3 Past Week at Unknown time ??? aspirin 81 mg Tablet, Delayed Release (E.C.) Take 81 mg by mouth daily. 08/29/2018 at Unknown time ??? furosemide (LASIX) 20 mg Tablet Take 20 mg by mouth every other day. Past Week at Unknown time ??? carvedilol (COREG) 25 mg Tablet Take 37.5 mg by mouth daily. Patient takes 1 1/2 tablets daily. 08/29/2018 at Unknown time ??? atorvastatin (LIPITOR) 40 mg Tablet TAKE ONE TABLET BY MOUTH EVERY DAY 3 08/28/2018 at Unknown time ??? cholecalciferol, Vitamin D3, (VITAMIN D) 1,000 unit Tablet Take 1,000 Units by mouth. Past Week at Unknown time ??? gabapentin (NEURONTIN) 800 mg Tablet Take 800 mg by mouth nightly. 08/28/2018 at Unknown time ??? amlodipine (NORVASC) 10 mg tablet Take 10 mg by mouth daily. Past Week at Unknown time Allergies: Allergies Allergen Reactions ??? Lisinopril Rise in creatinine Family History: Family History Problem Relation Age of Onset ??? Cancer Mother ??? Chronic Obstructive Pulmonary Disease Father Social History and Habits: Social History Socioeconomic [...] Former Smoker Packs/day: 0.50 ??? Smokeless tobacco: Former User Quit date: 07/14/2012 Substance and Sexual Activity ??? 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 Hepatitis A Vaccine, Adult 04/07/2014, 12/08/2014, 05/18/2015 ??? Pneumococcal Polyvalent 23 05/18/2015 Physical Exam: Last Set of Vitals and range of vitals over past 24 hours: Last value Range last 24 hrs Temperature Temp: 37.1 ??C (98.8 ??F) Temp: [37.1 ??C (98.8 ??F)] Heart Rate Heart Rate: 85 Heart Rate: [83-85] Blood Pressure BP: 165/76 BP: (165-173)/(75-76) Respiratory Rate Resp: 16 Resp: [16] SpO2 SpO2: 95 % SpO2: [92 %-95 %] Body mass index is 19.74 kg/m??. Physical Exam Constitutional: She is oriented to person, place, and time. She appears well- nourished. No distress. HENT: Head: Normocephalic and atraumatic. Eyes: Pupils are equal, round, and reactive to light. EOM are normal. Neck: Normal range of motion. Neck supple. Cardiovascular: Normal rate and regular rhythm. No murmur heard. Pulmonary/Chest: Effort normal and breath sounds normal. No respiratory distress. Few rales at bases Abdominal: She exhibits no distension. There is no tenderness. Musculoskeletal: Normal range of motion. She exhibits no edema or tenderness. Neurological: She is alert and oriented to person, place, and time. No cranial nerve deficit. Strength full, sensation intact Psychiatric: She has a normal mood and affect. Her behavior is normal. Laboratory (Last 24 Hours): Recent Results (from the past 24 hour(s)) POCT Glucose Result Value Ref Range POC Glucose 115 65 - 199 mg/dL Prothrombin Time Result Value Ref Range PT 12.2 9.4 - 12.5 sec INR 1.1 Hemogram Result Value Ref Range WBC 8.8 4.0 - 9.5 x10(3)/mcL RBC 4.06 4.00 - 5.21 x10(6)/mcL Hemoglobin 12.5 11.7 - 15.5 gm/dL Hematocrit 35.6 (L) 35.7 - 45.8 % MCV 87.7 82.6 - 94.4 fL MCH 30.8 27.1 - 32.0 pg MCHC 35.1 (H) 31.7 - 35.0 gm/dL Platelets 235 145 - 357 x10(3)/mcL RDWSD 41.7 37.0 - 46.0 fL RDWCV 13.1 11.5 - 14.1 % MPV 10.4 7.6 - 12.9 fL nRBC % Auto 0.0 % nRBC Abs Auto 0.000 0.000 - 0.000 x10(3)/mcL Differential, Automated Result Value Ref Range Neutrophils % 61.3 % Neutr Abs (ANC) 5.36 1.70 - 6.10 x10(3)/mcL Lymphocytes % 18.9 % Lymphocytes Abs 1.7 0.9 - 3.2 x10(3)/mcL Monocytes % 11.7 % Monocyte Abs 1.0 (H) 0.3 - 0.9 x10(3)/mcL Eosinophils % 6.8 % Eosinophils Abs 0.6 (H) 0.0 - 0.4 x10(3)/mcL Basophils % 1.1 % Basophils Abs 0.1 0.0 - 0.1 x10(3)/mcL Immature Gran % 0.20 % Blanca Gran Abs 0.02 0.00 - 0.04 x10(3)/mcL From OSH Wbc 6.6 hgb 13.4 plt 252 Creatinine 2 Microiology: Not applicable Radiology: CT abd/pelvis from 02/2018 (PREVIOUS TO HOSPITALIZATION) 1) Fusiform abdominal aortic aneurysm with maximum dimension of 3.7 cm in the infrarenal aorta. Other Studies: Renal artery duplex 01/2018 (Previous to hospitalization) Right: Patent main renal artery with elevated velocities (PSV 320 cm/s) consistent with >60% stenosis. Renal artery ostium not well visualized to exclude more severe stenosis. Patent main renal vein. Left: Patent main renal artery with elevated velocities (PSV 255 cm/s) consistent with >60% stenosis. Patent main renal vein. Aorta: The aorta is aneurysmal with a maximum diameter measurement of 3.1 cm. Echo 03/2018 in scanned docs from previous hospitalization EF 35-40%, diffuse HK, diastolic dysfunction. pulm htn 50-55, and mod MR EKG: St depressions in v4-v6 improved from previous EKG at [facility] Assessment: 67 yo woman with of combined systolic and diastolic CHF (EF 30%), moderate MR, 3.7 cm AAA, h/o acuteviral hepatitis (B), bilat renal artery stenosis followed by vascular, and CKD Cr ~2 presented to [facility] w hypertensive urgency and acute on chronic diastolic CHF. Unable to wean nicardipine and transferred here for consideration of vascular intervention of bilateral renal artery stenosis. #HTN urgency -continue nicardipine drip - continue her bblocker, will hold amlodipine and use nicardipine - note has 4 cm AAA - aim for SBP <150. Continue statin -renal duplex, NPO after midnight - Will forward my note to Dr Kemp - Would touch base with him or renal tomorrow as well #acute on chronic systolic and diastolic CHF - was on lasix drip at 2.5 mg/hour - Will bolus dose 40 mg IV bid instead for now - continue nicardipine --would continue this given plan for likely intervention (as this may significantly improved BP control) - echo to assess for changes as last echo was 4 hospitalizations ago - ekg improved from prevoius EKG though still depression in v5,v6. Serial enzymes tele, per report had neg stress on 08/25 #severe YING -vascular consult for consideration of intervention (they were on all the call) -NPO for renal duplex in am Plan: ?? Admit to Hospital Medicine - ISCU level of care ?? Physical Therapy referral ?? DVT Prophylaxis -enoxaparin ?? If currently a smoker - advised about smoking cessation and will provide smoking cessation material and support. ?? Pneumovax and Influenza Immunizations given as needed. ?? Discussed Advanced Directives and Code Status. The patient wishesto be full code -- would only want attempt x 2 A copy of this document will be sent to the patient's Primary Care Physician and/or Referring Physician. LILIANA ECHEVERRIA MD 08/29/2018 documented in this encounter Procedure Notes Emanuel Shrestha MD - 09/08/2018 11:38 PM EDTProcedure(s): INSERT ARTERIAL LINE Arterial Line Placement Procedure Note Indication for Procedure: Arterial line was placed for invasive blood pressure monitoring and arterial blood gases. Procedure Diagnosis: R radial artery line Location of Procedure: Critical Care. Time Out: Prior to the start of the procedure, the patient's identity, intended procedure, site/side, correct patient positioning and presence of the site thom was confirmed as applicable. The medical history and chart were reviewed to rule out potential contraindications to the planned procedure. Hand Hygiene: The federal java developer did perform hand hygiene prior to arterial line insertion. Procedure Prep: Sterile draping was applied. Skin was prepped with chlorhexidine. 0.5 ml of 1% Lidocaine was used for local anesthesia. Procedure Details: A 20 gauge, 2 inch catheter was placed in the right radial artery and secured with tape and steri-strips. Tegaderm was applied.. There was 1 attempt. Findings: There were no procedure complications. documented in this encounter Miscellaneous Notes Plan of Care - Gianna Horn RN - 09/14/2018 3:53 AM EDT Problem: Patient Care Overview Goal: Plan of Care Review Outcome: Ongoing (Interventions Implemented as Appropriate) 09/13/18 0134 09/13/18 2100 Coping/Psychosocial Plan Of Care Reviewed With -- patient Plan of Care Review Progress improving -- OUTCOME EVALUATION NOTE: OUTCOME SUMMARY: Pretty has had a good night. Patient reports adequate pain control with tylenol and oxycodone. Patientslept well. Voiding on commode urine and loose stool mixed together. Pulses palpated. PLAN MOVING FORWARD: Assist with moving. INDIVIDUALIZED FALL PREVENTION INTERVENTIONS: Patient-specific fall risk factors per assessment: [current deficits]: weakness Assistance [level of assistance required for transfers and ambulation]: Independent to commode. Supervision [direct monitoring required during toileting and ADLs]: Eyes on Surveillance [continuous indirect monitoring]: Call light in reach, purposeful rounds Patient-specific fall prevention interventions for sensory deficits provided, if applicable: [X] Yesadjust lighting CPG GOAL OUTCOME EVALUATION: Med Student Progress Note - Valeria Sherman - 09/13/2018 11:02 AM EDT Pretty Harmon is a 67yo female who is s/p R iliac to R renal bypass (09/07) for R renal artery occlusion and flash pulmonary edema. Interval hx: No acute events overnight. This morning, pt complains of continued pain in her right flank that is not responding to the lidocaine patches. Pt tolerating liquid diet and no longer feels nauseated. Denies CP, SOB. Blood pressure 155/67, pulse 74, temperature 36.9 ??C (98.4 ??F), temperature source Oral, resp. rate 18, height 154.9 cm (5' 0.98), weight 42.3 kg (93 lb 4.1 oz), SpO2 95 %. Physical Exam: General: Pt lying in bed, in no acute distress CV: RRR Pulm: NC in place. No increased WOB. Abdom: Soft, non-distended. Incisions clean and dry, with no erythema. Extrem: No LE edema Neuro: CN II-XII grossly intact Psych: Appropriate affect Intake/Output Summary (Last 24 hours) at 09/13/20180 Last data filed at 09/13/2018 1948 Gross per 24 hour Intake 818 ml Output 1801 ml Net -983 ml Recent Results (from the past 24 hour(s)) BMP w/fasting Glucose Result Value Ref Range Glucose Fasting 160 (H) 65 - 99 mg/dL BUN 21 (H) 8 - 18 mg/dL Creatinine 1.73 (H) 0.70 - 1.20 mg/dL Sodium 139 135 - 145 mmol/L Potassium 3.3 (L) 3.5 - 5.0 mmol/L Chloride 105 98 - 107 mmol/L CO2 20 (L) 22 - 31 mmol/L Anion Gap 14 5 - 15 mmol/L Calcium 8.3 (L) 8.5 - 10.5 mg/dL eGFR 30 (L) >=60 mL/min/1.73 m?? eGFR 34 (L) >=60 mL/min/1.73 m?? Magnesium Result Value Ref Range Magnesium 0.65 (L) 0.69 - 1.07 mmol/L Hemogram Result Value Ref Range WBC 8.1 4.0 - 9.5 x10(3)/mcL RBC 3.26 (L) 4.00 - 5.21 x10(6)/mcL Hemoglobin 10.1 (L) 11.7 - 15.5 gm/dL Hematocrit 29.8 (L) 35.7 - 45.8 % MCV 91.4 82.6 - 94.4 fL MCH 31.0 27.1 - 32.0 pg MCHC 33.9 31.7 - 35.0 gm/dL Platelets 237 145 - 357 x10(3)/mcL RDWSD 44.6 37.0 - 46.0 fL RDWCV 13.3 11.5 - 14.1 % MPV 11.3 7.6 - 12.9 fL nRBC % Auto 0.0 % nRBC Abs Auto 0.000 0.000 - 0.000 x10(3)/mcL Differential, Automated Result Value Ref Range Neutrophils % 62.6 % Neutr Abs (ANC) 5.06 1.70 - 6.10 x10(3)/mcL Lymphocytes % 16.1 % Lymphocytes Abs 1.3 0.9 - 3.2 x10(3)/mcL Monocytes % 10.9 % Monocyte Abs 0.9 0.3 - 0.9 x10(3)/mcL Eosinophils % 7.4 % Eosinophils Abs 0.6 (H) 0.0 - 0.4 x10(3)/mcL Basophils % 1.0 % Basophils Abs 0.1 0.0 - 0.1 x10(3)/mcL Immature Gran % 2.00 % Blanca Gran Abs 0.16 (H) 0.00 - 0.04 x10(3)/mcL Assessment: Pretty Harmon is a 67yo female who is s/p R iliac to R renal bypass (09/07) for R renal artery occlusion and flash pulmonary edema. Patient is recovering well from surgery, but continues to have inadequate pain control. BP control is improving. Plan: - continue with pain control measures, including oxycodone (5mg q4h PRN) - continue to monitor BP and renal function (most recent Cr 1.73) - advance diet as tolerated (currently on clear diet) - encourage OOB and ambulation Patient seen and discussed with the vascular surgery team. Valeria Sherman, MS3 Plan of Care - Candida Harley RN - 09/13/2018 1:38 AM EDT Problem: Patient Care Overview Goal: Plan of Care Review Outcome: Ongoing (Interventions Implemented as Appropriate) 09/13/18 0134 Coping/Psychosocial Plan Of Care Reviewed With patient Plan of Care Review Progress improving OUTCOME EVALUATION NOTE: OUTCOME SUMMARY: Pt reported pain, given tylenol with good effect. VSS, pt resting. PLAN MOVING FORWARD: Continue monitoring. Encourage ambulation and IS. INDIVIDUALIZED FALL PREVENTION INTERVENTIONS: Patient-specific fall risk factors per assessment: [current deficits]: IV site, IJ, oxygen tubing, generalized weakness Assistance [level of assistance required for transfers and ambulation]: Standby w/walker Supervision [direct monitoring required during toileting and ADLs]: Independent/standby, eyes on Surveillance [continuous indirect monitoring]: felisa Lynn rounding Patient-specific fall prevention interventions for sensory deficits provided, if applicable: N/A CPG GOAL OUTCOME EVALUATION: Patient Vitals for the past 24 hrs: BP Temp Temp src Pulse Resp SpO2 Weight 09/13/18 0026 140/59 37.2 ??C (99 ??F) Oral 81 16 96 % -- 09/12/18 2326 -- -- -- -- -- 95 % -- 09/12/18 2115 -- -- -- -- -- 95 % -- 09/12/18 1928 129/57 36.9 ??C (98.4 ??F) Oral -- 17 93 % -- 09/12/18 1600 136/64 -- -- -- -- 94 % -- 09/12/18 1557 -- 37.2 ??C (99 ??F) Oral -- -- -- -- 09/12/18 1500 -- -- -- -- -- 94 % -- 09/12/18 1400 -- -- -- -- -- 92 % -- 09/12/18 1300 -- -- -- -- -- 91 % -- 09/12/18 1200 124/54 36.5 ??C (97.7 ??F) Oral -- 15 94 % -- 09/12/18 1100 120/53 -- -- 72 14 91 % -- 09/12/18 1000 112/51 -- -- 71 13 91 % -- 09/12/18 0900 129/54 -- -- 79 13 92 % -- 09/12/18 0800 129/60 37.5 ??C (99.5 ??F) Oral 89 18 92 % -- 09/12/18 0700 127/53 -- -- 86 14 91 % -- 09/12/18 0600 131/54 -- -- 85 26 92 % 43.3 kg (95 lb 7.4 oz) 09/12/18 0500 131/54 -- -- 82 19 92 % -- 09/12/18 0400 125/55 37.3 ??C (99.1 ??F) Oral 77 15 90 % -- 09/12/18 0300 128/55 -- -- 78 17 91 % -- 09/12/18 0200 124/53 -- -- 73 15 (!) 89 % -- Goal: Individualization & Mutuality Outcome: Ongoing (Interventions Implemented as Appropriate) 09/13/18 0134 Individualization Patient Specific Interventions BP 120-160, SPO2 >89% Goal: Fall Prevention-Safe Patient Handling Outcome: Ongoing (Interventions Implemented as Appropriate) 09/12/182114 Lamb Fall Risk History of Falling 0 Secondary Diagnosis 15 Ambulatory Aids 15 Intravenous Therapy/Heparin/Saline Lock 20 Gait/Transferring 0 Mental Status 0 Score 50 OTHER Lamb Fall Risk High Restraint Interventions Safety Promotion/Fall Prevention activity supervised;fall prevention program maintained;nonskid shoes/slippers when out of bed;safety round/check completed Positioning Body Position independent Daily Care Interventions Self-Care Promotion independence encouraged Activity Activity Type activity adjusted per tolerance Activity Assistance Provided assistance, stand-by Assistive Device Utilized front-wheel walker Goal: Infection Control Outcome: Ongoing (Interventions Implemented as Appropriate) 09/12/182114 Coping Strategies Supportive Measures active listening utilized;counseling provided;decision- making supported;goal setting facilitated;positive reinforcement provided;problem solving facilitated;self-care encouraged;self-responsibility promoted;verbalization of feelings encouraged Safety Interventions Isolation Precautions standard precautions maintained Infection Prevention environmental surveillance performed;rest/sleep promoted Goal: Discharge Needs Assessment Outcome: Ongoing (Interventions Implemented as Appropriate) 09/13/18 013 Discharge Needs Assessment Discharge Disposition still a patient Goal: Interdisciplinary Rounds/Family Conf Outcome: Ongoing (Interventions Implemented as Appropriate) 09/13/18133 Interdisciplinary Rounds/Family Conf Participants nursing;patient;physician Plan of Care - Patrizia Peng RN - 09/12/2018 5:14 AM EDT A/O x 4 . Increase in ambulation/ steady. Replacing potassium with follow up lab ordered . Sacrum mepilex in place/ creatinine continue to improve. Clear liquids/ .Evaluate patient moving to floor Today. VVS Plan of Care - Frantz Stewart RN - 09/11/2018 4:16 PM EDT Problem: Patient Care Overview Goal: Plan of Care Review Outcome: Ongoing (Interventions Implemented as Appropriate) 09/11/18 1532 Coping/Psychosocial Plan Of Care Reviewed With patient Plan of Care Review Progress improving ?? OUTCOME EVALUATION NOTE: ?? OUTCOME SUMMARY: ?? Patient AO x4, pupils conjugate, 3 mm, equal and reactive to light. Motor strengths intact @ 5/5 to BUE/BLE, flexion/extension intact, palpable pulses and denies any numbness or tingling. Lungs CTAB and diminished in the bases, 1 L O2 requirement, several attempts to place on RA have been unsuccessful. Right groin incision with well-approximated alex, MIRNA, CDI with no drainage or s/s of infection.Upper abdomen incision also stapled, CDI/MIRNA. Patient endorses pain to RLQ, Dilaudid given IV. Patient up OOB with x1 assist and a walker, was able to walk down critical care hallway. Sacrum with mepilex in place and no breakdown. IJ x3 to right neck, CHG bath completed. PO medications started today and have been able to wean patient off of nicardipine (SBP goal <160). +2 pulses to RLE, +1 to leftDP. Patient voiding adequate amounts, LBM 05/14. Clear liquid diet which patient is tolerating well,MD garibay and RN questioned IVF order, this was discontinued this afternoon. K repleted for 3.1 levelwith a.m labs. Patient afebrile. NSR. SBP now <160. RR WDL, O2 sat controlled on 1-2 L. ?? PLAN MOVING FORWARD: Closely monitor BP, pain control, mobilize as tolerated, encourage coughing/deep breathing/IS?? INDIVIDUALIZED FALL PREVENTION INTERVENTIONS: ?? Patient-specific fall risk factors per assessment: [current deficits]: IV tubing, SCDs ?? Assistance [level of assistance required for transfers and ambulation]: x1 assist when OOB/repositioning ?? Supervision [direct monitoring required during toileting and ADLs]: Hands on ?? Surveillance [continuous indirect monitoring]: Jannet Monitor, call carmona within reach at all times ?? Patient-specific fall prevention interventions for sensory deficits provided, if applicable: Glasses ? CPG GOAL OUTCOME EVALUATION: ? Goal: Individualization & Mutuality 08/29/18 1839 Mutuality/Individual Preferences What Anxieties, Fears or Concerns Do You Have About Your Health or Care? none What Questions Do You Have About Your Health or Care? none What Information Would Help Us Give You More Personalized Care? call me Pretty Goal: Fall Prevention-Safe Patient Handling 09/11/18 0809/11/18 1400 09/11/18 1430 Lamb Fall Risk History of Falling 0 -- -- Secondary Diagnosis 15 -- -- Ambulatory Aids 15 -- -- Intravenous Therapy/Heparin/Saline Lock 20 -- -- Gait/Transferring 10 -- -- Mental Status 0 -- -- Score 60 -- -- OTHER Lamb Fall Risk High -- -- Restraint Interventions Safety Promotion/Fall Prevention -- activity supervised;fall prevention program maintained;nonskid shoes/slippers when out of bed;safety round/check completed -- Positioning Body Position -- independent -- Activity Activity Type -- -- ambulated in pacheco Activity Assistance Provided -- -- assistance, stand-by Assistive Device Utilized -- -- front-wheel walker Goal: Infection Control 09/10/18199909/11/18 1400 Coping Strategies Supportive Measures active listening utilized;positive reinforcement provided;relaxation techniques promoted -- Safety Interventions Isolation Precautions -- standard precautions maintained Infection Prevention -- rest/sleep promoted Goal: Discharge Needs Assessment 08/29/18 1853 09/06/18 0638 Current Health Anticipated Changes Related to Illness none -- Activity/Self Care Review of Systems Equipment Currently Used at Home none -- Living Environment Transportation Available car;family or friend will provide -- Discharge Needs Assessment Discharge Disposition -- still a patient Goal: Interdisciplinary Rounds/Family Conf 09/07/18 1523 Interdisciplinary Rounds/Family Conf Participants family;nursing;patient;physician;respiratory therapy Problem: Skin Integrity Impairment, Risk/Actual (Adult) Intervention: Promote/Optimize Nutrition 09/10/18 1800 09/11/18 1532 Nutrition Interventions Oral Nutrition Promotion -- medicated Hygiene Care Oral Care oral care provided -- Intervention: Prevent/Manage Excess Moisture 09/09/18 2335 09/11/18 0800 09/11/18 1430 Hygiene Care Perineal Care catheter care provided -- -- Bathing/Skin Care -- -- bath, chlorhexidine;dressed/undressed;linen changed Skin Interventions Skin Protection -- tubing/devices free from skin contact -- Intervention: Prevent/Minimize Sheer/Friction Injuries 09/11/18 0800 09/11/18 1400 Skin Interventions Pressure Reduction Devices specialty bed utilized -- Pressure Reduction Techniques frequent weight shift encouraged;heels elevated off bed;positioned offwounds -- Positioning Positioning/Transfer Devices -- pillows;in use Plan of Care - Katja Jewell RN - 09/10/2018 7:43 PM EDT Problem: Patient Care Overview Goal: Plan of Care Review Outcome: Ongoing (Interventions Implemented as Appropriate) 09/10/18 0800 09/10/18 1938 Coping/Psychosocial Plan Of Care Reviewed With patient -- Plan of Care Review Progress -- improving OUTCOME EVALUATION NOTE: OUTCOME SUMMARY: Pt alert and oriented, BP >160 during a.m, nicard gtt started, running at 7.5mg/hr, BP within goal rest of day without need for titration. PRN dilaudid given x2 for abd pain with good effect. Caballero pulled, adequate UOP since, ambulating to bathroom. NGT pulled, no neause no emesis, advanced to sipsand chips, tolerating well. Plan to advance diet tomorrow. No BM, passing flatus. Will continue to monitor PLAN MOVING FORWARD: Encourage PO intake BP control INDIVIDUALIZED FALL PREVENTION INTERVENTIONS: Patient-specific fall risk factors per assessment: [current deficits]: Generalized weakness, lines, deconditioned Assistance [level of assistance required for transfers and ambulation]: 2A Supervision [direct monitoring required during toileting and ADLs]: Hands on Surveillance [continuous indirect monitoring]: Purposeful rounding, call light within reach, call light answered in person, longo monitor Patient-specific fall prevention interventions for sensory deficits provided, if applicable: [X] Yesglasses at bedside CPG GOAL OUTCOME EVALUATION: Plan of Care - Donald Lockett, PT - 09/10/2018 2:46 PM EDT Physical Therapy Note Treatment Number PT: 3 Patient profile: Pretty Harmon is a 67 y.o. Right handed female admitted on 08/29/[address] Wilman Randolph MD from an OSH with hypertensive urgency and heart failure. Pt has had multiple admissions over the last few months for these same issues. Pt with a history of Renal artery stenosis, AAA, hepatitis, PVD, HTn and flash pulmonary edema 2/2 CHF with EF of 30%. Pt in the ICU for a week until the OR, 09/07/18, R renal bypass with R saphenous vein. Needing one vasopressor post op. PT and OT consulted POD 1.. ?? Patient with the following active problems: Past??Medical??History Past Medical History: Diagnosis Date ??? AAA (abdominal aortic aneurysm) ? [id number] angiogram; 3.2 cm infrarenal ??? Constipation ? Dyslipidemia ? Hypertension ? Insomnia ? Peripheral vascular disease ? Renal artery stenosis ? R; per 2009 angiogram ?? Past??Surgical??History Past Surgical History: Procedure Laterality Date ??? HYSTERECTOMY ? PRO CATHETER 1ST ORDER W/WO ART PUNCT/FLUORO/S&I BILATERAL Bilateral 09/01/2018 ?? SELECT CATH PLACE (FIRST-ORDER), MAIN RENAL ART & ANY ACC, W/S&I; ANDREY (WRVU 6.99) performed by Greyson Chen MD at [facility] MAIN OR ??? PRO UPPER GI ENDOSCOPY, DIAGNOSTIC ?? 01/20/2014 ?? EGD, UPPER GI ENDOSCOPY performed by Corby Cano MD at [facility] ENDOSCOPY ??? PRO UPPER GI ENDOSCOPY, DIAGNOSTIC N/A 07/28/2017 ?? EGD, UPPER GI ENDOSCOPY performed by Snow Liao MD at [facility] ENDOSCOPY ? Social History: Home set-up: Pt lives with her who has been retired. She has 2 adult children, [place] and [place]. Lives in a 2 Story home. Bathroom on each level. Bedroom is up a flight of stairs, with a railing. 2 steps into the house, with unknown railing. 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 Equipment at home: None ?? Precautions/Special Considerations: Leukocytosis, 22, 5/15; Anemia, 11.6; risk for skin breakdown. Lines: B peripheral IVs. RIJ. Supplemental O2 via NC Activity Orders: activity as tolerated Diet: NPO ?? Mobility and Positioning Recommendations: ?? Pt. to utilize FWW or hand held assist for ambulation and transfers with nursing. ?? Please encourage up to chair for meal times as able. ?? Pt encouraged to ambulate frequently with staff, getting into the bathroom for toileting and walking out in the pacheco >/= 3 times daily as able. ?? Subjective: Still not sleeping much. I have not eaten in 6 days. I think I have had it. Objective: Patient seen for physical therapy and demonstrated the following: Vital Signs: At Rest With Activity SpO2 (2L rest, 4L gt) 97% 97% BP (MAP) 148/50 158/52, supine after walking HR 70s 80-90 ?? Pt left in bed following visit. Initially sitting up in the recliner Education: Reminded pt to use IS throughout the day and splinted cough. Used IS to 1000 ml, 6x. Dry splinted cough. Bed Mobility: Sit to supine on L side of bed, min assist with verbal cues to log roll to the L. Transfers: Sit<>stand, CG assist of 1 with cues for proper hand placement, chair to bed Gait: ~80 with FWW, cga and assist to manage O2 and IV lines. NG disconnected by Nursing pre gait. Few standing rests, due to fatigue Assessment: Pretty Harmon was seen today for physical therapy treatment session for continuation of POC. Pt fatigued today, needing increased rest breaks, slower to move. Spo2 better on 2L and she used IS better. Pt has not eaten in 6 days and is not sleeping well. Dietary to call MD to see if they havea plan for TPN or diet. Pt should mobilize with nursing over the weekend. Wean use of Walker, as able. PT to f/u early next week for progression to stairs. Expect improvement with nutrition and sleep improves. Pt is getting IV med to regulate HTN. Pt will benefit from ongoing therapeutic interventionsto achieve therapy goals. Discharge Recommendations: Based on the current findings, Anticipated Discharge Disposition: home with assist(possibly VNA) when medically ready for hospital discharge. Consult Recommendations: No other consults recommended at this time Equipment needs: TBD Physical Therapy Goals: 1. Pt. to demonstrate knowledge of safety limitations and precautions and will appropriately requestassistance for functional activities and to mobilize. 2. Pt. to demonstrate understanding of appropriate Deep breathing exercises and splinted cough technique. 3. Pt. to perform bed mobility with modified independence. 4. Pt. to perform sit<>stand transfers with modified independenceusing no assistive device. 5. Pt. to ambulate 150 feet with modified independence using a no assistive device. 6. Pt. to ambulate up/down 13 step/stairs using one rail with supervision. 7. Family or caregiver to demonstrate understanding of therapeutic interventions to support the careof the patient. 8. Pt will tolerate progression towards upright with stable vital signs. ?? Plan: Therapy Frequency: 2-4 times/wk for as outlined in initial evaluation. Patient agrees with plan as stated. Time IN / OUT: 6207-5095 Total Evaluation Minutes, Physical Therapy: 27(TEF2) DONALD LOCKETT, PT Pager: [phone] Physical Therapy Inpatient Rehabilitation Department Plan of Care - Luiz Mathews RN - 09/10/2018 6:33 AM EDT Problem: Patient Care Overview Goal: Plan of Care Review Outcome: Ongoing (Interventions Implemented as Appropriate) 09/10/18 0627 Coping/Psychosocial Plan Of Care Reviewed With patient Plan of Care Review Progress no change OUTCOME EVALUATION NOTE: OUTCOME SUMMARY: Patient A&Ox4, flat affect. PRN dilaudid administered x2 for abdominal/incisional pain w/ positive effect. MD Serna made aware of persistent hypertension and inability to sustain sBP below goal of 160 multiple times. Plan per MD Serna - continue w/ scheduled BP meds and PRN meds, w/ additional1 time of hydralazine, no nicardipine gtt. 2L NC required w/ sleep. No acute events otherwise, appeared to sleep comfortably between care, will continue to monitor. PLAN MOVING FORWARD: Blood pressure management, pain management, IV fluids, encourage mobility, transfer to floor INDIVIDUALIZED FALL PREVENTION INTERVENTIONS: Patient-specific fall risk factors per assessment: [current deficits]: Generalized weakness, pain, immobility Assistance [level of assistance required for transfers and ambulation]: Assist x1 w/ walker Supervision [direct monitoring required during toileting and ADLs]: Hands on Surveillance [continuous indirect monitoring]: Bed alarm, ISCU Jannet monitor, purposeful rounding Patient-specific fall prevention interventions for sensory deficits provided, if applicable: [X] N/A CPG GOAL OUTCOME EVALUATION: Plan of Care - Katja Jewell RN - 09/09/2018 4:55 PM EDT Problem: Patient Care Overview Goal: Plan of Care Review Outcome: Ongoing (Interventions Implemented as Appropriate) 09/09/18 0647 Coping/Psychosocial Plan Of Care Reviewed With patient Plan of Care Review Progress improving OUTCOME EVALUATION NOTE: OUTCOME SUMMARY: 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 SBP consistently > 160, in 170s.PRN labetalol added after hydralazinegiven with no effect. PRNs given as ordered. made aware of uncontrolled BPs with no change in meds. Pt titrated from 2LNC to RA, tolerating well. Up in chair for most of the day. A- line removed perMD as pt is floor status. NGT to low suction, scant output, no nausea or emesis. Will continue to closely monitor PLAN MOVING FORWARD: Blood pressure monitoring INDIVIDUALIZED FALL PREVENTION INTERVENTIONS: Patient-specific fall risk factors per assessment: [current deficits]: Generalized weakness, lines, assistive device Assistance [level of assistance required for transfers and ambulation]: 1 assist with walker Supervision [direct monitoring required during toileting and ADLs]: Hands on Surveillance [continuous indirect monitoring]: Purposeful rounding, call light within reach, call light answered in person Patient-specific fall prevention interventions for sensory deficits provided, if applicable: [X] N/A CPG GOAL OUTCOME EVALUATION: Plan of Care - Donald Lockett, PT - 09/09/2018 10:26 AM EDT Physical Therapy Note Treatment Number PT: 2 Patient profile: Pretty Harmon is a 67 y.o. Right handed female admitted on 08/29/[address] Wilman Randolph MD from an OSH with hypertensive urgency and heart failure. Pt has had multiple admissions over the last few months for these same issues. Pt with a history of Renal artery stenosis, AAA, hepatitis, PVD, HTn and flash pulmonary edema 2/2 CHF with EF of 30%. Pt in the ICU for a week until the OR, 09/07/18, R renal bypass with R saphenous vein. Needing one vasopressor post op. PT and OT consulted POD 1.. ?? Patient with the following active problems: Past??Medical??History Past Medical History: Diagnosis Date ??? AAA (abdominal aortic aneurysm) ? [id number] angiogram; 3.2 cm infrarenal ??? Constipation ? Dyslipidemia ? Hypertension ? Insomnia ? Peripheral vascular disease ? Renal artery stenosis ? R; per 2009 angiogram ?? Past??Surgical??History Past Surgical History: Procedure Laterality Date ??? HYSTERECTOMY ? PRO CATHETER 1ST ORDER W/WO ART PUNCT/FLUORO/S&I BILATERAL Bilateral 09/01/2018 ?? SELECT CATH [address]ACE (FIRST-ORDER), MAIN RENAL ART & ANY ACC, W/S&I; ANDREY (WRVU 6.99) performed by Greyson Chen MD at [facility] MAIN OR ??? PRO UPPER GI ENDOSCOPY, DIAGNOSTIC ?? 01/20/2014 ?? EGD, UPPER GI ENDOSCOPY performed by Corby Cano MD at [facility] ENDOSCOPY ??? PRO UPPER GI ENDOSCOPY, DIAGNOSTIC N/A 07/28/2017 ?? EGD, UPPER GI ENDOSCOPY performed by Snow Liao MD at [facility] ENDOSCOPY ? Social History: Home set-up: Pt lives with her who has been retired. She has 2 adult children, [place] and [place]. Lives in a 2 Story home. Bathroom on each level. Bedroom is up a flight of stairs, with a railing. 2 steps into the house, with unknown railing. 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 Equipment at home: None ?? Precautions/Special Considerations: Leukocytosis, 22, 5/15; Anemia, 11.6; risk for skin breakdown. Lines: R radial line. B peripheral IVs. RIJ. Caballero. Activity Orders: activity as tolerated Diet: NPO ?? Mobility and Positioning Recommendations: ?? Pt. to utilize FWW or hand held assist for ambulation and transfers with nursing. ?? Please encourage up to chair for meal times as able. ?? Pt encouraged to ambulate frequently with staff, getting into the bathroom for toileting and walking out in the pacheco >/= 3 times daily as able. ?? Subjective: I did not sleep at all. Objective: Patient seen for physical therapy and demonstrated the following: Vital Signs: At Rest With Activity SpO2 (2L rest, 4L gt) 94% 92% BP (MAP) SBP 160s HR ?? Pt left in bedside recliner chair following visit. [facility] Education: Reminded pt to use IS throughout the day and splinted cough Pt initially supine in bed with nursing preparing pt to go to new unit. They approved of ambulation from unit to unit. IV capped. Still with arterial line. Increased FIO2 to 4L due to desaturation. Bed Mobility: Supine to sit on R side on bed, mod assist with verbal cues to log roll to the R. Transfers: Sit<>stand, min assist of 1 with cues for proper hand placement, 2x bed and to the recliner. Gait: ~110' with FWW, multiple standing rests, min assist, and 2nd person assisted to support lines Pt left sitting in new room, on gaymar cushion. Nurses reconnecting monitors and lines. PT left pt sitting up in the recliner. Assessment: Pretty Harmon was seen today for physical therapy treatment session for continuation of POC. Tolerated OOB and ambulation form ICU South to ISCU 81. Needed increased FIO2 and standing rests, due to fatigue and desaturation into the mid to high 80s. Pt has been treated for elevated SBP. Making nice gains. Pt will benefit from ongoing therapeutic interventions to achieve therapy goals. Discharge Recommendations: Based on the current findings, Anticipated Discharge Disposition: home with assist(VNA as needed) when medically ready for hospital discharge. Consult Recommendations: No other consults recommended at this time Equipment needs: TBS Physical Therapy Goals: 1. Pt. to demonstrate knowledge of safety limitations and precautions and will appropriately requestassistance for functional activities and to mobilize. 2. Pt. to demonstrate understanding of appropriate Deep breathing exercises and splinted cough technique. 3. Pt. to perform bed mobility with modified independence. 4. Pt. to perform sit<>stand transfers with modified independenceusing no assistive device. 5. Pt. to ambulate 150 feet with modified independence using a no assistive device. 6. Pt. to ambulate up/down 13 step/stairs using one rail with supervision. 7. Family or caregiver to demonstrate understanding of therapeutic interventions to support the careof the patient. 8. Pt will tolerate progression towards upright with stable vital signs. ?? Plan: Therapy Frequency: 2-4 times/wk for as outlined in initial evaluation. Patient agrees with plan as stated. Time IN / OUT: 1267-9268 Total Evaluation Minutes, Physical Therapy: 20(TEF) DONALD LOCKETT, PT Pager: [phone] Physical Therapy Inpatient Rehabilitation Department Plan of Care - Josi Diaz RN - 09/09/2018 6:51 AM EDT Problem: Patient Care Overview Goal: Plan of Care Review Outcome: Ongoing (Interventions Implemented as Appropriate) 09/09/18 0647 Coping/Psychosocial Plan Of Care Reviewed With patient Plan of Care Review Progress improving OUTCOME EVALUATION NOTE: OUTCOME SUMMARY: Patient alert and oriented X4. PRN Dilaudid 0.4mg IV given X2 with good effect. PRN Hydralizine and Labetelol given for elevated SBP with fair effect. A-line and cuff pressures not correlating. MD aware. Urine output adequate overnight. PLAN MOVING FORWARD: Transfer patient to lower level of care Plan of Care - Doris Rubio RN - 09/08/2018 4:29 PM EDT Problem: Patient Care Overview Goal: Plan of Care Review Outcome: Ongoing (Interventions Implemented as Appropriate) 09/07/18 1523 09/08/18 0800 Coping/Psychosocial Plan Of Care Reviewed With -- patient Plan of Care Review Progress progress toward functional goals as expected -- OUTCOME EVALUATION NOTE: OUTCOME SUMMARY: Pt A&O x 4. O2 sat maintained on 2L via NC. SBP maintained <160; nicardipine gtt on this AM and titrated off per team, PRN hydralazine given x 3 with good effect. Pt remains NPO (hold meds); NGTto low continuous suction. Good urine output most of shift; from 9259-4294 pt with only 85cc of urine output, CC Team notified; 250 cc fluid bolus ordered. Midline abdominal incision; dressing CDI, no drainage noted this shift. ABBY wrap to RLE, no drainage noted. Right groin site bruised, non tender, dried drainage marked. Pt up in the chair most of the day, PT/OT worked with patient and ambulated around unit. Pt denied pain most of shift; Dilaudid given x 1 this evening with good effect. Pt's spouse in to visit today. PLAN MOVING FORWARD: Strict I&O's SBP <160 INDIVIDUALIZED FALL PREVENTION INTERVENTIONS: Patient-specific fall risk factors per assessment: [current deficits]: Multiple lines/monitoring equipment Assistance [level of assistance required for transfers and ambulation]: X 1-2, walker Supervision [direct monitoring required during toileting and ADLs]: SBA Surveillance [continuous indirect monitoring]: [place] ICU, hourly rounding Patient-specific fall prevention interventions for sensory deficits provided, if applicable: [X] N/A CPG GOAL OUTCOME EVALUATION: Goal: Fall Prevention-Safe Patient Handling Outcome: Ongoing (Interventions Implemented as Appropriate) 09/08/18 1400 Restraint Interventions Safety Promotion/Fall Prevention safety round/check completed Activity Activity Type activity adjusted per tolerance Activity Assistance Provided assistance, 1 person Goal: Infection Control Outcome: Ongoing (Interventions Implemented as Appropriate) 09/08/18 0800 09/08/18 1400 Coping Strategies Supportive Measures positive reinforcement provided -- Safety Interventions Isolation Precautions -- standard precautions maintained Infection Prevention single patient room provided -- Plan of Care - Donald Lockett, PT - 09/08/2018 2:08 PM EDT Physical Therapy Evaluation Patient profile: Pretty Harmon is a 67 y.o. Right handed female admitted on 08/29/[address] Wilman Randolph MD from an OSH with hypertensive urgency and heart failure. Pt has had multiple admissions over the last few months for these same issues. Pt with a history of Renal artery stenosis, AAA, hepatitis, PVD, HTn and flash pulmonary edema 2/2 CHF with EF of 30%. Pt in the ICU for a week until the OR, 09/07/18, R renal bypass with R saphenous vein. Needing one vasopressor post op. PT and OT consulted POD 1.. Patient with the following active problems: Past Medical History: Diagnosis Date ??? AAA (abdominal aortic aneurysm) [id number] angiogram; 3.2 cm infrarenal ??? Constipation ??? Dyslipidemia ??? Hypertension ??? Insomnia ??? Peripheral vascular disease ??? Renal artery stenosis R; per 2009 angiogram Past Surgical History: Procedure Laterality Date ??? HYSTERECTOMY ? ? PRO CATHETER 1ST ORDER W/WO ART PUNCT/FLUORO/S&I BILATERAL Bilateral 09/01/[address] (FIRST-ORDER), MAIN RENAL ART & ANY ACC, W/S&I; ANDREY (WRVU 6.99) performedby Greyson Chen MD at [facility] MAIN OR ??? PRO UPPER GI ENDOSCOPY, DIAGNOSTIC 01/20/2014 EGD, UPPER GI ENDOSCOPY performed by Corby Cano MD at [facility] ENDOSCOPY ??? PRO UPPER GI ENDOSCOPY, DIAGNOSTIC N/A 07/28/2017 EGD, UPPER GI ENDOSCOPY performed by Snow Liao MD at [facility] ENDOSCOPY Social History: Home set-up: Pt lives with her who has been retired. She has 2 adult children, [place] and [place]. Lives in a 2 Story home. Bathroom on each level. Bedroom is up a flight of stairs, with a railing. 2 steps into the house, with unknown railing. 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 Equipment at home: None Precautions/Special Considerations: Leukocytosis, 22, 5/15; Anemia, 11.6; risk for skin breakdown. Lines: R radial line. B peripheral IVs. RIJ. Caballero. Activity Orders: activity as tolerated Diet: NPO Mobility and Positioning Recommendations: ?? Pt. to utilize FWW or hand held assist for ambulation and transfers with nursing. ?? Please encourage up to chair for meal times as able. ?? Pt encouraged to ambulate frequently with staff, getting into the bathroom for toileting and walking out in the pacheco >/= 3 times daily as able. Subjective: ???I can not move my head because this nose tube hurts, when I do.?? Objective: Pt seen for evaluation today. Pain: Number Location At rest 12/04 NGT site and Incision sites With activity 12/04 Same as above Vital Signs: At Rest With Activity SpO2 on 4L 98% 98% BP (MAP) 130/50s mmHg 130/50s mmHg HR 54bpm 60bpm Mental Status: alert, oriented to person, place, and time Skin: Abby wrap entire RLE and large abdominal incision and dressing Musculoskeletal: ROM: BUE AROM wnls. BLE AROM wfls for chair transfers. Full R knee ext and B hips, knees and ankles flex to at least 90. Strength: B shoulders at least 3/5. Good elbow and hand strength. B hip flex at least 3/5. B knee ext at least 4/5 or better. B DF at least 3/5 Sensation: Pt denies numbness or tingling and located all touch. Bed Mobility: Supine to Sit: NE Sit to Supine: NE Pt OOB with nursing earlier. Transfers: Sit to Stand: min assist of 2 Stand to Sit: min assist of 1-2 Use of FWW. Gait: Distance: 80' Device used: FWW Level of assist: Cg to min assist of 2. Line management. Gait mechanics: slow with short step lengths and brief standing rests x 3. Balance: Sitting Static: fair Sitting Dynamic: fair Standing Static: with 2 assist and fWW Standing Dynamic / Gait: With 2 assist and FWW Education: patient has been educated on Transfers, Breathing exercises, Positioning, Safety , Precautions/protocol, Equipment use, Gait , Role of therapy, Balance, Discharge planning and Educated in splinted cough and verbalizes understanding.Used IS to 1750 ml 5x. Patient status, treatment, and mobility recommendations discussed with nursing. Assessment: Pretty Harmon was seen today for physical therapy evaluation, along with OT; gait, transfer, IS, splinted cough, and endurance training; pt ed and dc planning. Pt is a moderate complex pt given her labile pain; acute on chronic medical conditions; and functional deficits related to above stated impairments. Pt is still on one vasopressor. VSS during PT/OT. She tolerated ambulation in the pacheco but felt weak. Expect good progress barring no complications. Should be able to dc to home withoutequipment or ongoing PT needs. The pt would benefit from skilled therapy services to promote safety and provide developmental support and caregiver education, as an inpatient. Discharge Recommendations: Based on the current findings, Anticipated Discharge Disposition: home with assist when medically ready for hospital discharge. Consult Recommendations: No other consults recommended at this time Equipment needs: No equipment necessary Goals: To be achieved by DC: 1. Pt. to demonstrate knowledge of safety limitations and precautions and will appropriately requestassistance for functional activities and to mobilize. 2. Pt. to demonstrate understanding of appropriate Deep breathing exercises and splinted cough technique. 3. Pt. to perform bed mobility with modified independence. 4. Pt. to perform sit<>stand transfers with modified independenceusing no assistive device. 5. Pt. to ambulate 150 feet with modified independence using a no assistive device. 6. Pt. to ambulate up/down 13 step/stairs using one rail with supervision. 7. Family or caregiver to demonstrate understanding of therapeutic interventions to support the careof the patient. 8. Pt will tolerate progression towards upright with stable vital signs. Plan: Therapy Frequency: 2-4 times/wk for therapy including balance training, bed mobility training,gait training, stair training, strengthening and transfer training. Patient/family understand and agree with plan as stated above. 2017 PT Evaluation Code Rationale: ?? Diagnosis & Pertinent Co-Morbidities, personal factors, and present illness affecting Plan ofCare: (see above); Additional personal factors or co- morbidities that impact plan: ?? Total # of Factors: 0 1-2 3+ x ?? Examination of body system impairments, functional limitations and behaviors, and/or participation restrictions. Addressing 1-2 elements Addressing 3 + elements Addressing 4 + elements x ?? Clinical presentation: See assessment above. Stable/Uncomplicated Evolving/Fluctuating Symptoms Unstable/Unpredictable x ?? Clinical decision making of moderate complexity based on pt's functional performance as outlined in this evaluation. Total Evaluation Minutes, Physical Therapy: 34(EV Mod and BETY) DONALD LOCKETT, PT Pager: [phone] Physical Therapy Inpatient Rehabilitation Department Plan of Care - Joel Lehman, OT - 09/08/2018 12:08 PM EDT Occupational Therapy Evaluation Patient profile: Pretty Harmon is a 67 y.o. female with a history of CHF, CKD, and hypertensive urgency and recurrent flash pulmonary edema in the setting of right renal artery stenosis requiring open right external iliac to right renal bypass, being admitted to the SICU post-op for management of respiratory status, fluid balance, and renal function. Social History: Patient lives with her who is retired. The home has 1-2 steps to enter, their bedroom is on the 2nd floor, bathrooms both levels. 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 Precautions/Special Considerations: fall risk, NGT to suction, R a-line Activity order: ambulate patient 4 times daily Subjective: I can't move my head much because it moves this tube all around and it hurts. Objective: Seen today for OT evaluation in conjunction with skilled PT evaluation. Cognitive Status/Behavior: ?? Behavior / Mood: alert and cooperative ?? Alert and oriented to: person, place, time and situation ?? Follows commands: multi step ?? Attention: WFL ?? Safety awareness: WFL Vision & Perception: ?? WNL/WFL ?? corrective lenses for reading Communication: WFL Range of motion, strength, coordination: Hand dominance: right Bilateral UEs are within functional limitations LE limitations: moving against gravity Sensation: denies numbness/tingling Activities of Daily Living: Self-feeding: currently NPO - do not anticipate difficulties with feeding Grooming: set up for oral care Dressing: min A for socks due to pain/decreased flexibility Toileting: Transfer: anticipate 1A Hygiene: anticipate supervision-min A Functional Mobility: Sit to stand: CG-min A Ambulation: CG-min A with walker ~60 ft Stand to sit: CG, cues for hand placement Balance: Sitting balance: good Standing balance: 1A with walker IADL???s: Assistance available to patient. Vitals: At Rest With Activity SpO2 98% on 4L 97% on 4L Heart Rate 55 60 Blood Pressure 134/53 138/71 Pain: 8/10 at incision, 9/10 at NGT. Education: patient have been educated on Role of occupational therapy/rehabilitation, Transfers, ADL, Positioning, Safety, Functional Mobility and Recommendations and verbalizes understanding. Patient status, treatment, and mobility recommendations discussed with nursing. Assessment: Pt has been seen for occupational therapy evaluation. Pretty Harmon presents with the following performance skill deficits and client factors: increased pain, decreased activity tolerance, decreased flexibility/ROM, decreased strength, decreased sitting/standing balance and close hemodynamic monitoring. These performance deficits have led to activity limitations and participation restrictions in the following areas of occupation: dressing, bathing, toileting, transfers/mobility, home management, work, driving and community mobility. Pt tolerated evaluation well, currently requires 1A for ADL and mobility. Anticipate that with continued opportunities to participate in self care pt will progress to be safe for d/c home when medically ready. Pt would benefit from further inpatient OT interventions to address performance deficits and maximize participation and independence with occupationsof daily living. Equipment needs at discharge: TBD Anticipated Discharge Disposition: home with assist, home with home health Other Recommendations: ?? Utilize upright chair position using bed features or transfer to recliner chair as appropriate with min A, ambulate as tolerated ?? Encourage participation in ADL's by providing set up A on tray table and physical assist only as needed Goals: To be achieved by 09/23/18. 1. Patient will stand at sink level with supervision x10 min for ADLs. 2. Patient will dress lower body indep with adaptive equipment prn. 3. Patient will perform simple kitchen mgt with appropriate assistive device as needed and supervision. 4. Patient will ambulate to the bathroom with supervision, assistive device as needed. 5. Patient will demonstrate energy conservation principals with all ADLs indep. Plan: OT: Therapy Frequency: 2-3 times/wk Planned OT interventions: Role of occupational therapy/rehabilitation, Transfers, ADL, Positioning, Safety, Functional Mobility, Activity pacing/Energy conservation, Home Management and Recommendations. Total Evaluation Minutes, Occupational Therapy: 34(eval) 2017 OT Evaluation Code Rationale: ?? Diagnosis & Pertinent Co-Morbidities affecting Plan of Care: see PMHx ?? Occupational Profile & Client History: Brief Expanded Extensive X ?? Assessment of Occupational Performance: 1-3 performance deficits 3-5 performance deficits 5 + performance deficits X ?? Clinical Decision Making: Low Moderate High X Clinical decision making of high complexity using standardized patient assessment instrument and measurable assessment of functional outcome. Pager: [phone] JOEL LEHMAN OT 09/08/2018 Occupational Therapy Rehabilitation Department Plan of Care - Nina Stallworth RN - 09/08/2018 6:20 AM EDT Problem: Patient Care Overview Goal: Plan of Care Review Outcome: Ongoing (Interventions Implemented as Appropriate) 09/07/18 1523 09/07/182033 Coping/Psychosocial Plan Of Care Reviewed With -- patient Plan of Care Review Progress progress toward functional goals as expected -- Goal: Individualization & Mutuality Outcome: Ongoing (Interventions Implemented as Appropriate) 08/29/18 1839 Mutuality/Individual Preferences What Anxieties, Fears or Concerns Do You Have About Your Health or Care? none What Questions Do You Have About Your Health or Care? none What Information Would Help Us Give You More Personalized Care? call me Pretty Goal: Fall Prevention-Safe Patient Handling Outcome: Ongoing (Interventions Implemented as Appropriate) 09/07/18 1400 09/07/18203309/08/18 0600 Lamb Fall Risk History of Falling -- 0 -- Secondary Diagnosis -- 15 -- Ambulatory Aids -- 0 -- Intravenous Therapy/Heparin/Saline Lock -- 0 -- Gait/Transferring -- 0 -- Mental Status -- 0 -- Score -- 15 -- OTHER Lamb Fall Risk -- Low -- Restraint Interventions Safety Promotion/Fall Prevention -- -- safety round/check completed Positioning Body Position -- -- independent Activity Activity Type -- -- activity adjusted per tolerance Activity Assistance Provided -- -- assistance, 2 people Assistive Device Utilized oxygen -- -- Goal: Infection Control Outcome: Ongoing (Interventions Implemented as Appropriate) 09/07/18199909/07/18203309/08/18 0600 Coping Strategies Supportive Measures -- positive reinforcement provided;active listening utilized -- Safety Interventions Isolation Precautions -- -- standard precautions maintained Infection Prevention single patient room provided -- -- Goal: Discharge Needs Assessment Outcome: Ongoing (Interventions Implemented as Appropriate) 08/29/18 18509/06/18 0638 Current Health Anticipated Changes Related to Illness none -- Activity/Self Care Review of Systems Equipment Currently Used at Home none -- Living Environment Transportation Available car;family or friend will provide -- Discharge Needs Assessment Discharge Disposition -- still a patient Goal: Interdisciplinary Rounds/Family Conf Outcome: Ongoing (Interventions Implemented as Appropriate) 09/07/18 1523 Interdisciplinary Rounds/Family Conf Participants family;nursing;patient;physician;respiratory therapy OUTCOME EVALUATION NOTE: OUTCOME SUMMARY: Pt came out of the OR to the unit at approximately 2030. Pt was drowsy upon arrival, kept on 5L nasal cannula. Labs drawn and sent. Pt given PRN dilaudid for abdominal pain to positive effect. Nicardipine drip on intermittently throughout shift to maintain SBP<160. Lung sounds clear. Pt bradycardicto the 40s while sleeping, team aware. UO monitored, 30-50/hr. PLAN MOVING FORWARD: Continue to monitor changing health status Maintain SBP<160 INDIVIDUALIZED FALL PREVENTION INTERVENTIONS: Patient-specific fall risk factors per assessment: [current deficits]: Recent surgery, pain, lines Assistance [level of assistance required for transfers and ambulation]: 1-assist Supervision [direct monitoring required during toileting and ADLs]: RN and [employer] Surveillance [continuous indirect monitoring]: Telemetry, alarms, frequent monitoring Patient-specific fall prevention interventions for sensory deficits provided, if applicable: [X] No CPG GOAL OUTCOME EVALUATION: Problem: Cardiac: Heart Failure (Adult) Goal: Signs and Symptoms of Listed Potential Problems Will be Absent, Minimized or Managed (Cardiac:Heart Failure) Signs and symptoms of listed potential problems will be absent, minimized or managed by discharge/transition of care (reference Cardiac: Heart Failure (Adult) CPG). Outcome: Ongoing (Interventions Implemented as Appropriate) 09/08/18 0615 Cardiac: Heart Failure Problems Assessed (Heart Failure) all Problems Present (Heart Failure) fluid/electrolyte imbalance;functional decline/self-care deficit;respiratory compromise Problem: Skin Integrity Impairment, Risk/Actual (Adult) Goal: Identify Related Risk Factors and Signs and Symptoms Related risk factors and signs and symptoms are identified upon initiation of Human Response Clinical Practice Guideline (CPG) Outcome: Ongoing (Interventions Implemented as Appropriate) 09/08/1815 Skin Integrity Impairment, Risk/Actual Skin Integrity Impairment, Risk/Actual: Related Risk Factors fluid/nutrition status;immobility Goal: Skin Integrity/Wound Healing Patient will demonstrate the desired outcomes by discharge/transition of care. Outcome: Ongoing (Interventions Implemented as Appropriate) 09/08/1815 Skin Integrity Impairment, Risk/Actual (Adult) Skin Integrity/Wound Healing making progress toward outcome Op Note - Leah Cline MD - 09/07/2018 9:06 PM EDT [facility] [place] Operative Note ?? Patient Name: Pretty Harmon : [id number] MR#: [id number] ?? Case Date: 09/07/2018 ?? Surgeon: Surgeon(s) and Role: * Unique Moody MD - Primary * Leah Cline MD - Resident ?? 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 Procedure: Right external iliac to right renal artery bypass with reversed right greater saphenous vein ?? Anesthesia: General ?? Findings: Right flank incision, trans abdominal exposure Bypass performed from right external iliac to right renal artery Reversed right greater saphenous used for conduit End to side on iliac, end to end on renal, [place] right renal artery origin ligated Completion duplex performed, showed PSV 80 in bypass w EDV ~20 (PSV 175 at renal anastomosis), good renal artery outflow Palp right DP PT pulses at case end Pt hemodynamically stable throughout case, on low dose nicardipine at case beginning, weaned off by case end, made urine throughout Right renal clamp time 26 min ?? IVF: 700cc Heparin: 4000U Protamine: 30 mg UOP: 300cc ?? Complications: none ?? Estimated Blood Loss: none ?? Specimens removed during surgery: None PRBCs: none (See Anesthesia Record/Report for Other Blood Products) Urine Output: 300 mL ?? Drains: none ?? Disposition: awakened from anesthesia, extubated, taken to ICU post op, not on any vasopressor medications, stable ?? Condition: doing well HPI: Pretty Harmon is a 67 y.o. female w multiple admissions for flash pulm edema in setting of proximal occlusion of R renal artery. Unsuccessful last week in crossing R renal occlusion with endovascular attempt. Nuc med scan shows 45% renal function is dependent on right kidney (55% on left). Considering recurrent episodes flash pulm edema pt will require intervention - nephrectomy vs bypass. With renal function still dependent on R kidney, we feel in hopes of preventing pt from needing HD, bypass would have better outcome from standpoint of her renal function. Plan for R external iliac to R renal bypass with R greater saphenous vein today. Procedure: After informed consent was obtained the patient was brought back to the operating room and placed supine on the OR table. General anesthesia was induced and the patient was intubated with an ETT. Additional support lines (caballero, arterial line, PIVs) were placed. Preoperative antibiotics were given (1gancef). A timeout was performed. Attention was then turned to the patient's right flank. We began bymaking a 25 cm incision from 3 cm below the umbilicus extending over the right flank to the level ofthe iliac crest. Subcutaneous tissue was dissected with cautery. The external oblique, internal oblique, and transversalis fascia were transected in layers. At the medial aspect of the incision and therectus abdominis was also transected. Following this the layer of transversalis was carefully identified with the peritoneal layer. The peritoneum was divided allowing access into the abdominal cavity.There were several adhesions from the right colon to the abdominal wall which were carefully taken down with Metzenbaum scissors. In addition there were adhesions just below the liver also to the colonwhich were transected with Metzenbaum scissors. Lateral peritoneal attachments of the right colon were incised in the cecum to the hepatic flexure and the right colon and the mesentery were reflected medially. The duodenum was also mobilized by incising retroperitoneal attachments thus performing a Fatmata maneuver permitting medial reflection of the duodenum. The duodenum was reflected to the left. At this point the small and large bowel are wrapped with a large moist lap pad and retracted to the pat ient's left. This maneuver exposed the inferior vena cava. There is a thick layer of fatty tissue overlying the right kidney. Gerota's fascia was very carefully excised. The right renal vein was easilyidentified at the base of the fatty tissue. The right renal vein was carefully dissected with Metzenbaum scissors and a fibroid angle. The right renal vein was then retracted caudal such as to expose the right renal artery. The right renal artery was noted to be a very small diameter and was carefullydissected again with Metzenbaum scissors and a fine right angle. A large branch arising inferiorly was inspected. The right renal was then dissected more proximally towards the origin from the aorta. The branch that had been identified and angiogram is providing a large collateral to the right renal was identified coming off caudal off the main renal artery. At this point we were satisfied with our dissection as based on the angiogram we had reached the proximal renal or blood flow was restored by th is collateral vessel. At this point attention was turned toward exposing the iliac artery. Inferior and the incision the ureter was identified. There were actually 2 small ureters identified. The ureters were retracted manually such as not to cause in any inadvertent injury. Beneath the ureters there is fatty tissue overlying the iliac arteries which had a nice palpable pulse. The past the fatty tissue was dissected with a blood right angle and cautery. The external iliac artery was easily mobilizedwith a blunt right angle and cautery. The external iliac artery was encircled with 2 large Vesseloops. A vessel loop was placed on the proximal right renal artery. A silk tie was placed near the originof the right renal artery (and was not yet tied). Attention was turned to the right thigh. The greater saphenous vein in the right eye had already been marked under ultrasound such as to identify its course. A 10 blade was used to incise the skin. Cautery was used to excise subcutaneous tissue. The greater saphenous vein was identified and encircled with a small vessel loop. Then using Metzenbaum scissors the overlying tissue was dissected with a scissors. All small branches were ligated doubly with2-0 silk ties. The greater saphenous vein was clamped at its origin at the saphenofemoral junction. The vein was divided with an 11 blade. The saphenofemoral junction was oversewn with a stick tie. Distally just above the knee the greater saphenous vein was also ligated with a 2-0 silk tie. The greater saphenous vein was then passed off the field and dilated with heparinized saline. The vein dilated to a nice diameter. Heparin was given to maintain an ACT of greater than 300. At this point we are ready to perform the bypass. A profound and is being planned for place proximal and distal on the rightexternal iliac artery. Using an 11 blade and arteriotomy was made in a vertical direction. The arteriotomy was extended with Lau scissors. The vessel was nice and soft and would make for good inflow.The vein was brought onto the table. Again was confirmed the vein dilated nicely with heparinized saline. The inflow aspect of the vein was cut and spatulated. The vein was reversed. Using 6-0 Prolene suture The vein was sewn end-to-side in the usual circumferential manner to the external iliac artery. Each clamp was then removed. There is no bleeding at the anastomosis. The vein dilated nicely. A gra ft clamp was placed on the vein. Attention was then turned to performing the proximal anastomosis. The silk tie at the origin of the renal artery was then secured and tied down such as to effectively clamp the renal artery. A small clip was used to clip the large collateral to the main renal artery. Using a Nino scissor the renal artery was transected thus allowing us to so the bypass at the end. The renal artery was spatulated as was the greater saphenous vein which was cut to size for the bypass.Delay of the bypass was confirmed such that there would not be any tension on the bypass graft. Thenusing 6-0 Prolene suture and end-to-end anastomosis was performed from the greater saphenous vein tothe right renal artery. Prior to completing the bypass anastomosis the graft was flushed. The Prolene was then sewn down and clamps were removed. There is good hemostasis at the anastomosis. A Doppler was brought into the field was confirmed excellent flow into the renal artery beyond the bypass. In addition a completion duplex was performed which showed flows of about 80 cm/s in the bypass with goodend-diastolic flow. In addition there is good flow in the renal artery outflow. Satisfied that thereis much improved flow with the bypass in place protamine was then given. Gelfoam and thrombin were used at the proximal anastomosis to achieve hemostasis. Cautery was used for soft tissue oozing in thevein harvest site. The thigh incision was then closed; one layer of 3-0 Vicryl was then used to reapproximate the tissue at the thigh. In the thigh the skin was closed with alex the incision was dressed with Medipore tape. Attention was turned back to the abdomen. There was minimal oozing in the fatty tissue around the kidney. The oozing was treated with bipolar cautery. The transversalis fascia and internal oblique were closed in 1 layer with 1-0 PDS. The internal oblique was closed in a second layer with 1-0 PDS. Soft tissue was reapproximated with interrupted 3-0 Vicryl. The skin was stapled.The flank incision was dressed with a sterile dry dressing. The patient was extubated. NG tube was left in place. The patient was not on any vasopressor support at the end of the case. She had a palpable DP and PT pulse in her right foot. The patient was taken to the ICU as had been planned prior to case start. The patient was in stable condition. Instrument counts were correct. Dr. Moody was present for the entire operation. ?? Infection Bundle used? NA pre and intra op ancef given Associated attestation - Unique Moody MD - 09/12/2018 9:12 AM EDT Attestation: Case Date: 09/07/2018 I was present and I participated during the entire procedure (does not need to include opening and closing). 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) Hypertension Prior episodes systolic heart failure Former smoker H/o Hep B Procedure: Right external iliac to right renal artery bypass with reversed right greater saphenous vein Anesthesia: General Findings: Right flank incision, trans abdominal exposure Bypass performed from right external iliac to right renal artery Reversed right greater saphenous used for conduit End to side on iliac, end to end on renal, [place] right renal artery origin ligated Completion duplex performed, showed PSV 80 in bypass w EDV ~20 (PSV 175 at renal anastomosis), good renal artery outflow Palp right DP PT pulses at case end Pt hemodynamically stable throughout case, on low dose nicardipine at case beginning, weaned off by case end, made urine throughout Right renal clamp time 26 min IVF: 700cc Heparin: 4000U Protamine: 30 mg UOP: 300cc Complications: none Estimated Blood Loss: none Specimens removed during surgery: None PRBCs: none (See Anesthesia Record/Report for Other Blood Products) Urine Output: 300 mL Drains: none Disposition: awakened from anesthesia, extubated, taken to ICU post op, not on any vasopressor medications, stable Condition: doing well (Please see the Surgical Encounter Summary for any Implant and Specimen details pertinent to this patient.) Infection Bundle used? NA pre and intra op ancef given Plan of Care - Aria Gustafson RN - 09/07/2018 3:50 PM EDT Problem: Patient Care Overview Goal: Plan of Care Review Outcome: Ongoing (Interventions Implemented as Appropriate) 09/07/18 0809/07/18 1523 Coping/Psychosocial Plan Of Care Reviewed With patient -- Plan of Care Review Progress -- progress toward functional goals as expected OUTCOME EVALUATION NOTE: OUTCOME SUMMARY: Pt alert and oriented, VSS on cardine gtt to keep SBP<170. Taken to OR this afternoon for renal artery bypass. Plan to transfer to SICU post-op PLAN MOVING FORWARD: Transfer to SICU post-op INDIVIDUALIZED FALL PREVENTION INTERVENTIONS: Patient-specific fall risk factors per assessment: [current deficits]: 02, cont. IV infusions Assistance [level of assistance required for transfers and ambulation]: Stand-by Supervision [direct monitoring required during toileting and ADLs]: Vital signs continually monitored Surveillance [continuous indirect monitoring]: Room near nurse's station, frequent visual checks Patient-specific fall prevention interventions for sensory deficits provided, if applicable: [X] No CPG GOAL OUTCOME EVALUATION: Goal: Fall Prevention-Safe Patient Handling Outcome: Ongoing (Interventions Implemented as Appropriate) 09/07/18 0809/07/18 1400 Lamb Fall Risk History of Falling 0 -- Secondary Diagnosis 15 -- Ambulatory Aids 0 -- Intravenous Therapy/Heparin/Saline Lock 0 -- Gait/Transferring 0 -- Mental Status 0 -- Score 15 -- OTHER Lamb Fall Risk Low -- Restraint Interventions Safety Promotion/Fall Prevention -- safety round/check completed Positioning Body Position -- independent Activity Activity Type -- activity adjusted per tolerance Activity Assistance Provided -- assistance, stand-by Assistive Device Utilized -- oxygen Goal: Infection Control Outcome: Ongoing (Interventions Implemented as Appropriate) 09/07/18 0809/07/18 1523 Coping Strategies Supportive Measures -- positive reinforcement provided Safety Interventions Isolation Precautions standard precautions maintained -- Infection Prevention rest/sleep promoted -- Goal: Interdisciplinary Rounds/Family Conf Outcome: Ongoing (Interventions Implemented as Appropriate) 09/07/18 1523 Interdisciplinary Rounds/Family Conf Participants family;nursing;patient;physician;respiratory therapy Problem: Cardiac: Heart Failure (Adult) Goal: Signs and Symptoms of Listed Potential Problems Will be Absent, Minimized or Managed (Cardiac:Heart Failure) Signs and symptoms of listed potential problems will be absent, minimized or managed by discharge/transition of care (reference Cardiac: Heart Failure (Adult) CPG). Outcome: Ongoing (Interventions Implemented as Appropriate) 09/07/18 1523 Cardiac: Heart Failure Problems Assessed (Heart Failure) all Problems Present (Heart Failure) fluid/electrolyte imbalance;respiratory compromise;situational response Problem: Skin Integrity Impairment, Risk/Actual (Adult) Goal: Identify Related Risk Factors and Signs and Symptoms Related risk factors and signs and symptoms are identified upon initiation of Human Response Clinical Practice Guideline (CPG) Outcome: Ongoing (Interventions Implemented as Appropriate) 09/07/18 1523 Skin Integrity Impairment, Risk/Actual Skin Integrity Impairment, Risk/Actual: Related Risk Factors fluid/nutrition status;infection/disease process Goal: Skin Integrity/Wound Healing Patient will demonstrate the desired outcomes by discharge/transition of care. Outcome: Ongoing (Interventions Implemented as Appropriate) 09/07/18 1523 Skin Integrity Impairment, Risk/Actual (Adult) Skin Integrity/Wound Healing making progress toward outcome Plan of Care - Candy Dumont RN - 09/07/2018 5:26 AM EDT Problem: Patient Care Overview Goal: Plan of Care Review 09/06/18 1229 09/06/181999 Coping/Psychosocial Plan Of Care Reviewed With -- patient Plan of Care Review Progress progress toward functional goals as expected -- Goal: Fall Prevention-Safe Patient Handling 09/06/18199909/07/18 0400 Lamb Fall Risk History of Falling 0 -- Secondary Diagnosis 15 -- Ambulatory Aids 0 -- Intravenous Therapy/Heparin/Saline Lock 20 -- Gait/Transferring 0 -- Mental Status 0 -- Score 35 -- OTHER Lamb Fall Risk Med -- Restraint Interventions Safety Promotion/Fall Prevention -- safety round/check completed;fall prevention program maintained Positioning Body Position -- independent Activity Activity Type -- activity adjusted per tolerance Activity Assistance Provided -- assistance, stand-by Assistive Device Utilized -- oxygen Goal: Infection Control 09/06/18199909/07/18 0400 Safety Interventions Isolation Precautions -- standard precautions maintained Infection Prevention -- single patient room provided Coping Strategies Supportive Measures active listening utilized -- Problem: Cardiac: Heart Failure (Adult) Intervention: Promote Functional Ability 09/06/18199909/07/18399 Activity Activity Type -- activity adjusted per tolerance Activity Assistance Provided -- assistance, stand-by Coping/Psychosocial Interventions Environmental Support calm environment promoted -- Intervention: Provide Oxygenation/Ventilation/Perfusion Support 09/06/18199909/07/18399 Activity Activity Type -- activity adjusted per tolerance Positioning Head of Bed (HOB) -- HOB at 30-45 degrees Safety Interventions Medication Review/Management medications reviewed -- Intervention: Support Psychosocial Response to Heart Failure 09/06/18 0739 09/06/181999 Coping Strategies Supportive Measures -- active listening utilized Family/Support System Care support provided;self-care encouraged;presence promoted -- Intervention: Monitor/Manage Nutrition Support 09/07/18523 Adjust Diet to Patient Tolerance Nutrition Interventions other (see comments) (NPO for planned surgery since ) Intervention: Gradually Correct Positive Fluid Balance 09/06/18199909/07/18399 Positioning Body Position -- independent Skin Interventions Skin Protection adhesive use limited;incontinence pads utilized -- Intervention: Prevent/Manage DVT/VTE Risk 09/07/18399 Support Surgical/Anesthesia Recovery VTE Prevention/Management anticoagulant therapy;AROM (active range of motion) performed Goal: Signs and Symptoms of Listed Potential Problems Will be Absent, Minimized or Managed (Cardiac:Heart Failure) Signs and symptoms of listed potential problems will be absent, minimized or managed by discharge/transition of care (reference Cardiac: Heart Failure (Adult) CPG). 09/06/181999 Cardiac: Heart Failure Problems Assessed (Heart Failure) all Problems Present (Heart Failure) fluid/electrolyte imbalance;respiratory compromise Comments: OUTCOME EVALUATION NOTE: OUTCOME SUMMARY: Patient has planned surgery for today, in the afternoon. Pt has remained stable overnight, and is on2.5 mg cardene. PLAN MOVING FORWARD: Renal artery bypass surgery INDIVIDUALIZED FALL PREVENTION INTERVENTIONS: Patient-specific fall risk factors per assessment: [current deficits]: Tubes, weakness Assistance [level of assistance required for transfers and ambulation] 1 person assist Supervision [direct monitoring required during toileting and ADLs]: yes Surveillance [continuous indirect monitoring]: .yes Patient-specific fall prevention interventions for sensory deficits provided, if applicable: [X] Yes CPG GOAL OUTCOME EVALUATION: Consult Note - Jinny Haywood RN - 09/06/2018 12:13 PM EDT FOR THE PHYSICIAN CARING FOR THIS PATIENT: The Vascular Access Service has identified this patient as a candidate for a Central Catheter for the following reasons. __XX___This patient has extremely poor peripheral vascular access resulting in multiple venipunctures for Phlebotomy/ IV access, increasing the risk for infection and decreasing patient comfort/ satisfaction. PT HAS MULTIPLE VEIN PHLEBITIS ON BILATERAL ARMS EXTENDING FROM FOREARM TO UPPER ARM. EXTREMELY POOR ACCESS. RECEIVING MEDICATIONS KNOWN TO CAUSE PHLEBITIS OR EXTRAVASATION This patient has been 'turned back' by the Vascular Access Service, meaning we are unable to gain or maintain peripheral IV access in this patient. _XX____Patient admission requiring IV Therapy/ phlebotomy for greater than 6 days is likely with probable vesicant infusions. IV Drug NICARDIPINE, PLANNED OR 09/07 WITH NEED FOR ADDITIONAL MEDICATIONS is anirritant/vesicant having safety risks associated with possible significant extravasation injury. ___XX__Multiple Incompatible medications requiring multiple central lumens. NEPHROLOGY TEAM IN ROOM STATING NO PICC LINE DUE TO RISK OF DIALYSIS AND FISTULA. This nurse has also contacted MD___PRIMARY CARE TEAM CONTACTED BY LAWRENCE ROLON FOR CENTRAL LINE NEED. regarding this patient's Vascular Access status, ____09.06.2018 AT ~ 1200 ( enter date and time) Thank you Consult Note - Jinny Haywood RN - 09/06/2018 12:11 PM EDT Images from the original note were not included. Phlebitis Location of Phlebitis: RIGHT ARM PHLEBITIS Phlebitis Scale: [ ] +0 No symptoms [ ] +1 Erythema at access site with or without pain. [ ] +2 Pain at access site with [ ] erythema and/or [ ] edema. [ X ] +3 Pain at access site with [ X ] erythema and/or [ ] edema [X ] Streak formation [ X ] Palpable venous cord. [ ] +4 Pain at access site with [ ] erythema and/or [ ] edema [ ] Streak formation [ ] Palpable venous cord > 1 inch in length [ ] Purulent drainage. Site measurement: Length [ 13 ] cm X Width [ 1 ] cm Circumference of affected extremity [22 ] cm [ ] N/A Circumference of unaffected extremity [ 23.I ] cm [ ] N/A Treatment initiated or recommended [X ] Heat [ X ] Rest X ] Elevation [ ] Other Reassessment: [ ] Q4 hrs [ ] Q8 hrs [ ] Daily Comments: MULTIPLE VEIN PHLEBITI Consult Note - Jinny Haywood RN - 09/06/2018 12:09 PM EDT Images from the original note were not included. Phlebitis Location of Phlebitis: LEFT ARM Phlebitis Scale: [ ] +0 No symptoms [ ] +1 Erythema at access site with or without pain. [ ] +2 Pain at access site with [ ] erythema and/or [ ] edema. [ X ] +3 Pain at access site with [ X ] erythema and/or [ ] edema [X ] Streak formation [ X] Palpable venous cord. [ ] +4 Pain at access site with [ ] erythema and/or [ ] edema [ ] Streak formation [ ] Palpable venous cord > 1 inch in length [ ] Purulent drainage. Site measurement: Length [26 ] cm X Width [1 ] cm Circumference of affected extremity [22.5 ] cm [ ] N/A Circumference of unaffected extremity [ 22 ] cm [ ] N/A Treatment initiated or recommended [X ] Heat [X ] Rest [X ] Elevation [ ] Other Reassessment: [ ] Q4 hrs [ ] Q8 hrs [ ] Daily Comments: MULTIPLE VEIN PHLEBITIS Plan of Care - Candy Dumont RN - 09/06/2018 6:40 AM EDT Problem: Patient Care Overview Goal: Discharge Needs Assessment 09/06/18 0638 Discharge Needs Assessment Discharge Disposition still a patient Problem: Cardiac: Heart Failure (Adult) Intervention: Promote Functional Ability 09/05/18199909/06/18 06 Activity Activity Type -- activity adjusted per tolerance Activity Assistance Provided -- assistance, stand-by Coping/Psychosocial Interventions Environmental Support calm environment promoted -- Intervention: Provide Oxygenation/Ventilation/Perfusion Support 09/05/18199909/06/18599 Activity Activity Type -- activity adjusted per tolerance Positioning Head of Bed (HOB) -- HOB at 30-45 degrees Safety Interventions Medication Review/Management medications reviewed -- Intervention: Support Psychosocial Response to Heart Failure 09/05/181999 Coping Strategies Supportive Measures active listening utilized Intervention: Gradually Correct Positive Fluid Balance 09/05/18199909/06/18599 Positioning Body Position -- independent Skin Interventions Skin Protection adhesive use limited;drying agents applied -- Intervention: Prevent/Manage DVT/VTE Risk 09/06/18637 Support Surgical/Anesthesia Recovery VTE Prevention/Management anticoagulant therapy;AROM (active range of motion) performed Goal: Signs and Symptoms of Listed Potential Problems Will be Absent, Minimized or Managed (Cardiac:Heart Failure) Signs and symptoms of listed potential problems will be absent, minimized or managed by discharge/transition of care (reference Cardiac: Heart Failure (Adult) CPG). 09/06/18637 Cardiac: Heart Failure Problems Assessed (Heart Failure) all Problems Present (Heart Failure) functional decline/self-care deficit;situational response Comments: OUTCOME EVALUATION NOTE: OUTCOME SUMMARY: Pt rested well overnight, oxgygen saturation remained stable on 4 L NC. Cardene was restarted at 0300 for a BP systolic of 173, turned off at 0600 when BP systolic reached 148. Captopril was given at this time. PLAN MOVING FORWARD: Renal Scan in Nuclear medicine, continue to monitor and support pt with oxgyen as needed, monitor I's and Os and labs. INDIVIDUALIZED FALL PREVENTION INTERVENTIONS: Patient-specific fall risk factors per assessment: [current deficits]: Tubes, wires Assistance [level of assistance required for transfers and ambulation]: 1 person assist Supervision [direct monitoring required during toileting and ADLs]: yes Surveillance [continuous indirect monitoring]: yes Patient-specific fall prevention interventions for sensory deficits provided, if applicable: [X] Yes CPG GOAL OUTCOME EVALUATION: Plan of Care - Judy Frank RN - 09/05/2018 7:32 AM EDT Problem: Cardiac: Heart Failure (Adult) Goal: Signs and Symptoms of Listed Potential Problems Will be Absent, Minimized or Managed (Cardiac:Heart Failure) Signs and symptoms of listed potential problems will be absent, minimized or managed by discharge/transition of care (reference Cardiac: Heart Failure (Adult) CPG). Outcome: Ongoing (Interventions Implemented as Appropriate) 09/04/1852009/05/1824 Cardiac: Heart Failure Problems Assessed (Heart Failure) all -- Problems Present (Heart Failure) -- fluid/electrolyte imbalance;situational response;respiratory compromise;functional decline/self-care deficit OUTCOME EVALUATION NOTE: OUTCOME SUMMARY: Patient remained a/ox4 throughout shift, very pleasant. Adequate u/o. Cardene drip turned on brieflyto keep BP <170. Dilaudid given x1 for reported SOB, pt stated relief. No major events over night PLAN MOVING FORWARD: Keep cardene drip off, hopefully transfer out of ICU today. INDIVIDUALIZED FALL PREVENTION INTERVENTIONS: Patient-specific fall risk factors per assessment: [current deficits]: standard fall precautions, tubing Assistance [level of assistance required for transfers and ambulation]: standby Supervision [direct monitoring required during toileting and ADLs]: Independent- 1 assit Surveillance [continuous indirect monitoring]:icu longo, hourly safety rounds Patient-specific fall prevention interventions for sensory deficits provided, if applicable: [X] Yes CPG GOAL OUTCOME EVALUATION: Plan of Care - Whitney So RN - 09/04/2018 5:31 AM EDT Problem: Cardiac: Heart Failure (Adult) Goal: Signs and Symptoms of Listed Potential Problems Will be Absent, Minimized or Managed (Cardiac:Heart Failure) Signs and symptoms of listed potential problems will be absent, minimized or managed by discharge/transition of care (reference Cardiac: Heart Failure (Adult) CPG). Outcome: Ongoing (Interventions Implemented as Appropriate) 09/04/18520 Cardiac: Heart Failure Problems Assessed (Heart Failure) all Problems Present (Heart Failure) fluid/electrolyte imbalance;functional decline/self-care deficit;respiratory compromise;situational response OUTCOME EVALUATION NOTE: OUTCOME SUMMARY: Pt placed on cpap overnight with adequate SpO2 on 45% fiO2. Pt given second 100mg dose of lasix at beginning of shift as ordered- diuresed well with -1,700mL urine output so far. Pt calm and cooperative. No c/o pain. Afebrile. NSR. Pt persistently hypertensive >170 this shift- blueteam notified- nicardipine restarted. PLAN MOVING FORWARD: Wean FiO2 and nicardipine as tolerated. Downgrade when appropriate. INDIVIDUALIZED FALL PREVENTION INTERVENTIONS: Bed low and locked, call light within reach Patient-specific fall risk factors per assessment: [current deficits]: Generalized weakness; dyspnea; tubing Assistance [level of assistance required for transfers and ambulation]: 1 assist Supervision [direct monitoring required during toileting and ADLs]: 1 assist Surveillance [continuous indirect monitoring]: Continuous ICU longo monitoring Patient-specific fall prevention interventions for sensory deficits provided, if applicable: [X] Yes CPG GOAL OUTCOME EVALUATION: Ongoing Plan of Care - Kathleen Franco RN - 09/03/2018 6:47 PM EDT Problem: Patient Care Overview Goal: Plan of Care Review Outcome: Ongoing (Interventions Implemented as Appropriate) 09/03/18 1843 Coping/Psychosocial Plan Of Care Reviewed With patient;spouse;family Plan of Care Review Progress progress toward functional goals is gradual OUTCOME EVALUATION NOTE: OUTCOME SUMMARY: No significant events throughout shift. Patients VSS, adequate urine output and minimal complaints of pain. Patient tolerating HFNC, but needed Bi-pap at times during the day and needs it while sleeping. Patient diuresed with 100mg of Lasix with good output. PRN medications given for patient feeling air hungry. Family remained at the bedside and updated accordingly. Vascular paged twice - no returncall. Family would like to talk with them. Will continue to monitor and follow current plan of care. PLAN MOVING FORWARD: Wean HFNC and Bi-pap Monitor renal status INDIVIDUALIZED FALL PREVENTION INTERVENTIONS: Patient-specific fall risk factors per assessment: [current deficits]: HFNC, Bi- pap and generalized weakness Assistance [level of assistance required for transfers and ambulation]: Stand by assist, assist x1 Supervision [direct monitoring required during toileting and ADLs]: Assist with BADLs Surveillance [continuous indirect monitoring]: Per ICU protocol Patient-specific fall prevention interventions for sensory deficits provided, if applicable: [X] Yes Consult Note - Beba Aaron MD - 09/03/2018 9:16 AM EDT NEPHROLOGY CONSULT NOTE PATIENT: Pretty Harmon : 1950 REASON FOR CONSULTATION: GAEL in the setting of hypertensive urgency and contrast exposure in attempted intervention for severe bilateral renal artery stenosis (70%) ID:: This is a 67 year old woman with HFpEF (EF 54% on 08/2018 TTE), bilateral renal artery stenosis (>60% occlusion bilaterally in 01/2018, progression of R stenosis to occlusion and persistent L stenosis on most recent duplex in 08/2018), 3.7 cm AAA, acute HBV, HTN, HLD, former tobacco use (45 years up to 1ppd at max, quit 10 years ago), and 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 Underwent angiogram on 09/01 but was unable to intervene on occluded R stenosis and ultimately found L side darien more patent than expected and did not intervene and was transferred to ICU as she became more sobwith worsening pulmonary edema. S; Was more awake and is on high flow this morning ,did have only 550 cc in last 24 hrs .She is tillon nicardipine drip for blood pressure mgt . PHYSICAL EXAM: Intake/Output Summary (Last 24 hours) at 09/03/2018 0916 Last data filed at 09/03/2018 0900 Gross per 24 hour Intake 1784 ml Output 850 ml Net 934 ml Last value Range last 24 hrs Temperature Temp: 36.3 ??C (97.3 ??F) Temp: [36.3 ??C (97.3 ??F)-37 ??C (98.6 ??F)] Heart Rate Heart Rate: 87 Heart Rate: [65-87] Blood Pressure BP: 159/86 BP: (134-159)/(58-92) Respiratory Rate Resp: 13 Resp: [10-20] SpO2 SpO2: 91 % SpO2: [86 %-96 %] Appearance - Awake and alert. Pleasant, interactive. In NAD. Skin - Warm, dry. HEENT - No sclera icterus. Chest - Lungs have bilateral basal crackles. Heart - S1 and S2. RRR. No MRG. Abd - Soft. Non-tender. Non-distended. Normal BS. Ext - Warm extremities. No peripheral edema. Neuro - Moving extremities without issues. Labs: CBC: Recent Labs 09/02/18 1407 09/01/18 0020 08/31/18 0015 WBC 9.7* 6.7 8.1 HGB 11.8 11.5* 12.1 PLATELET 229 220 235 Chemistry: Recent Labs 09/03/18 0655 09/03/18 0035 09/02/18 0329 NA 131* 133* 134* K 5.2* 4.7 4.8 CL 99 98 98 CO2 19* 20* 20* BUN 50* 48* 36* CREATININE 2.80* 2.89* 2.71* GLUCOSE 140 172 142 Recent Labs 09/03/18 0655 09/03/18 0035 09/02/18 0329 09/01/18 0020 08/31/18 0015 CALCIUM 8.4* 8.2* 8.5 7.8* 7.9* MAGNESIUM -- 0.95 0.97 0.86 0.75 PHOS -- 4.4 6.2* -- 3.5 LFT's: Recent Labs 06/14/18 1022 BILITOT 0.4 ALBUMIN 3.9 ALKPHOS 57 ALT 11 AST 19 IMPRESSION/ RECOMMENDATIONS: Pretty Harmon is a pleasant 67 year old woman with HFpEF (EF 54% on 08/2018 TTE), bilateral renal artery stenosis (>60% occlusion bilaterally in 01/2018, progression of R stenosis to occlusion and persistent L stenosis on most recent duplex in 08/2018), 3.7 cm AAA, acute HBV, HTN, HLD, former tobacco use(45 years up to 1ppd at max, quit 10 years ago), and 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) who had recurrent hospital admissions with sob and flash pulmonary edema in the setting of known renal artery stenosis with failed medical treatment .She did underwent angio this admission when it was found that she have complete occlusion of right renal artery and left renal artery is patent .She was transferred to ICU after procedure as her respiratory distress worsened and required BIPAP suport 1,Renal artery stenosis with flash pulmonary edema with failed medical therapy: - Unable to stent the right renal artery in that case as this is the source for excess production ofrenin /angiotensin and causing her to flash due to uncontrolled hypertension will consider embolization /nephrectomy but consider nuclear renal functional scan to evaluate the function of other kidney before proceeding further . - Will also discuss with vascular about further plans and know if there are microaneurysms to evaluate for VITAL. - she also have hep b a possibility of VITAL is also on our differential -in which vasculitis work up need to be considered. - will consider lasix bolus dosing 80 mg IV TID to help in respiratory stabilization and Will do watch her kidney function closely and there is no indication for HD. - Monitor calcium, phosphorus, magnesium and replete as needed - Avoid ACEi/ARBs, NSAIDs, and other nephrotoxic agents - Monitor Is and Os - Daily weight Thank you for this very interesting consult. We will continue to follow. Please call with any questions. Beba Aaron MD #[id number]. Associated attestation - Tyron Kemp MD - 09/03/2018 5:14 PM EDT I saw and discussed the patient with the fellow and agree with the assessment and plan in her note. 67-year-old female with history of renal artery stenosis and recent development of severe hypertension and multiple hospitalizations due to flash pulmonary edema. Unfortunately unable to open up right renal artery via cath. Unclear at this point whether revascularization of the right kidney is possible. Will wait on vascular surgery plan. Given persistent hypertension concerned that right renal kidneymay be source of renin driven hypertension. Agree with NM scan to lateralize GFR. If 100% of GFR appears to be coming from contralateral side, and patient remains hypertensive consider trial of short ac ting ABBY inhibitor (patient has been somewhat intolerant of this in the past however per Doppler sheappears to have good flow to the left side.) If unable to stable lies hemodynamically might also have to consider right-sided nephrectomy. Plan of Care - Doris Lamb RN - 09/02/2018 5:23 PM EDT Problem: Patient Care Overview Goal: Plan of Care Review Outcome: Ongoing (Interventions Implemented as Appropriate) 09/02/18 0438 09/02/18 0800 Coping/Psychosocial Plan Of Care Reviewed With -- patient Plan of Care Review Progress improving -- OUTCOME EVALUATION NOTE: OUTCOME SUMMARY: Pt alert and oriented times 4 today. Denies pain. Nicardipine drip now paused, BP parameters changedto maintain SBP 130-170, was on 5mg for most of day with SBP 140s. Paged team several times throughout the day for no UOP. Team up at bedside this afternoon and increased IVF. Pt finally able to void at 1600, 300ml. Team made aware this morning of increase in O2 requirement to 6L. Pt denies SOB, no change in work of breathing. Pt ambulated in the halls, sat up in chair this afternoon. Will continue to monitor pt and update team with changes. PLAN MOVING FORWARD: Encourage mobility. Monitor respiratory status. Monitor for pain. Closely monitor I&Os. INDIVIDUALIZED FALL PREVENTION INTERVENTIONS: Patient-specific fall risk factors per assessment: [current deficits]: IV Assistance [level of assistance required for transfers and ambulation]: SBA Supervision [direct monitoring required during toileting and ADLs]: Hands on. Surveillance [continuous indirect monitoring]: Bed alarm utilized, room near nurses station, and purposeful rounding. ISCU jannet monitor Patient-specific fall prevention interventions for sensory deficits provided, if applicable: [X] Yes CPG GOAL OUTCOME EVALUATION: Consult Note - Jessa Real - 09/02/2018 2:13 PM EDT NEPHROLOGY CONSULT NOTE PATIENT: Pretty Harmon : 1950 REASON FOR CONSULTATION: GAEL in the setting of hypertensive urgency and contrast exposure in attempted intervention for severe bilateral renal artery stenosis (70%) HPI: This is a 67 year old woman with HFpEF (EF 54% on 08/2018 TTE), bilateral renal artery stenosis (>60% occlusion bilaterally in 01/2018, progression of R stenosis to occlusion and persistent L stenosis on most recent duplex in 08/2018), 3.7 cm AAA, acute HBV, HTN, HLD, former tobacco use (45 years up to 1ppd at max, quit 10 years ago), and 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 Due to uncontrolled hypertensive urgency, she was transferred to [facility] for consideration of intervention of bilateral renal artery stenosis. Pretty's troubles began this past 2017 when she had acute SOB and was found to have hypertensive urgency. Since then she reports repeated admission in April, June, and now for similar SOB/hypertensive urgency episodes, each of which resolved with furosemide. She has been seeing Dr. Moody with vascular surgery outpatient as well as Dr. Kemp with nephrology. She tells me she had been directed towards medical management of YING rather than surgical intervention. With this most recent episode of SOB, she presented to OSH and was unable to be weaned off nicardipine and was transferred to [facility] for possible vascular surgery intervention. On 09/01, vascular surgery attempted intervention but was unable to intervene on occluded R stenosis and ultimately found L side to be more patent than expected and did not intervene. Rodolfo (patient's of 50 years) and Praveen me they are eager to hear from the vascular surgery group about feasibility of surgery and whatit might entail and what the recovery would look like. Pretty is soon to be retired and had been hoping to travel with her and tells me she has discussed with her outpatient providers the possibility of needing dialysis down the line. Of note, she tells me she would NOT be willing to go to dialysis more than once a week, and thinks she would not be able to have the quality of life she wants if she had to go dialysis every other day. For blood pressure control, she is currently on carvedilol 37.5 mg BID and nicardipine gtt. She is also receiving NS 150 cc/hr. She received lasix 20 mg IV on 09/01 and 09/02, presumably for respiratory distress thought to be 2/2 pulmonary edema. Past Medical History: Diagnosis Date ??? AAA (abdominal aortic aneurysm) [id number] angiogram; 3.2 cm infrarenal ??? Constipation ??? Dyslipidemia ??? Hypertension ??? Insomnia ??? Peripheral vascular disease ??? Renal artery stenosis R; per 2010 angiogram Past Surgical History: Procedure Laterality Date ??? HYSTERECTOMY ??? PRO UPPER GI ENDOSCOPY, DIAGNOSTIC 01/20/2014 EGD, UPPER GI ENDOSCOPY performed by Corby Cano MD at [facility] ENDOSCOPY ??? PRO UPPER GI ENDOSCOPY, DIAGNOSTIC N/A 07/28/2017 EGD, UPPER GI ENDOSCOPY performed by Snow Liao MD at [facility] ENDOSCOPY Family History Problem Relation Age of Onset ??? Cancer Mother ??? 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 Current Outpatient Medications on File Prior to Encounter Medication Sig Dispense Refill ??? levothyroxine (SYNTHROID) 25 mcg Tablet Take 37.5 mcg by mouth daily. ??? isosorbide mononitrate (IMDUR) 30 mg Tablet Sustained Release 24 hr Take 30 mg by mouth daily. ??? potassium chloride (K-DUR/KLOR-CON) 10 mEq Tablet Sustained Release Take 2 tablets by mouth 2 times daily. 120 tablet 3 ??? aspirin 81 mg Tablet, Delayed Release (E.C.) Take 81 mg by mouth daily. ??? furosemide (LASIX) 20 mg Tablet Take 20 mg by mouth every other day. ??? carvedilol (COREG) 25 mg Tablet Take 37.5 mg by mouth daily. Patient takes 1 1/2 tablets daily. ??? atorvastatin (LIPITOR) 40 mg Tablet TAKE ONE TABLET BY MOUTH EVERY DAY 3 ??? cholecalciferol, Vitamin D3, (VITAMIN D) 1,000 unit Tablet Take 1,000 Units by mouth. ??? gabapentin (NEURONTIN) 800 mg Tablet Take 800 mg by mouth nightly. ??? amlodipine (NORVASC) 10 mg tablet Take 10 mg by mouth daily. MEDICATIONS: ??? heparin (Porcine) 5,000 Units Subcutaneous 2 times per day ??? melatonin 3 mg Oral Nightly ??? aspirin 81 mg Oral Daily ??? atorvastatin 40 mg Oral QPM ??? gabapentin 800 mg Oral Nightly ??? levothyroxine 37.5 mcg Oral QAM ??? chlorhexidine 15 mL Oral BID ??? sodium chloride 0.9 % 5 mL Intravenous BID ??? carvedilol 37.5 mg Oral BID WC Allergies Allergen Reactions ??? Lisinopril Rise in creatinine ROS (positives in bold): Constitutional - No fevers, chills, weight loss. Skin - No rash or pruritus. HEENT - No headaches, visual changes. Resp - No cough, shortness of breath, or wheezing. CV - No chest pain, palpitations, dizziness, orthopnea/PND. GI - No nausea, vomiting, abdominal pain, change in bowel habits or stool color. - No flank pain. No change in urine output. No dysuria or hematuria. Neuro - No focal weakness, numbness or tingling. PHYSICAL EXAM: Last value Range last 24 hrs Temperature Temp: 36.9 ??C (98.4 ??F) Temp: [36.7 ??C (98.1 ??F)-37.6 ??C (99.7 ??F)] Heart Rate Heart Rate: 70 Heart Rate: [67-76] Blood Pressure BP: 143/58 BP: (122-161)/(45-98) Respiratory Rate Resp: 14 Resp: [9-26] SpO2 SpO2: (!) 87 % SpO2: [87 %-94 %] Appearance - Awake and alert. Pleasant, interactive. In NAD. Skin - Warm, dry. HEENT - No sclera icterus. +L carotid bruit. Chest - Lungs CTAB. No crackles/wheeze. Satting in low 90s on 6L NC. Heart - S1 and S2. RRR. No MRG. Abd - Soft. Non-tender. Non-distended. Normal BS. +L abdominal bruit. Ext - Warm extremities. No peripheral edema. Neuro - Moving extremities without issues. Labs: CBC: Recent Labs 09/01/18 0020 08/31/18 0015 08/29/18 2043 WBC 6.7 8.1 8.8 HGB 11.5* 12.1 12.5 PLATELET 220 235 235 Chemistry: Recent Labs 09/02/18 0329 09/01/18 0020 08/31/18 0015 NA 134* 134* 135 K 4.8 4.1 3.9 CL 98 99 98 CO2 20* 23 23 BUN 36* 24* 21* CREATININE 2.71* 2.17* 1.93* GLUCOSE 142 117 128 Recent Labs 09/02/18 0329 09/01/18 0020 08/31/18 0015 CALCIUM 8.5 7.8* 7.9* MAGNESIUM 0.97 0.86 0.75 PHOS 6.2* -- 3.5 LFT's: Recent Labs 06/14/18 1022 BILITOT 0.4 ALBUMIN 3.9 ALKPHOS 57 ALT 11 AST 19 IMPRESSION/ RECOMMENDATIONS: Pretty Harmon is a pleasant 67 year old woman with HFpEF (EF 54% on 08/2018 TTE), bilateral renal artery stenosis (>60% occlusion bilaterally in 01/2018, progression of R stenosis to occlusion and persistent L stenosis on most recent duplex in 08/2018), 3.7 cm AAA, acute HBV, HTN, HLD, former tobacco use(45 years up to 1ppd at max, quit 10 years ago), and 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 Due to uncontrolled hypertensive urgency, she was transferred to [facility] for consideration of intervention of bilateral renal artery stenosis. Nephrology is consulted regarding GAEL on CKD which seems most likely secondary to recent contrast load with angiogram for attempted vascular procedure in which R renal artery occlusion was unable to beintervened upon. She has had decreasing UOP since the procedure which likely is 2/2 GAEL, but we recommend obtaining renal ultrasound to rule out obstruction. It would be interesting to find out more about what angiogram revealed in terms of nature of renal artery stenosis - any beading or aneurysmal lesions or things to suggest any other pathology than atherosclerotic occlusion? We defer to vascular surgery regarding possibility and options for surgical intervention for R renal artery occlusion. If R kidney is unable to be intervened upon, we will see where the renal function levels out. At presenttime there is no indication for dialysis. If there comes a point in the future where Pretty is felt toneed dialysis, this will need to be a very careful shared decision as at present time, intermediate dialysis is not in line with patient's goals of care. Regarding her fluid status - she continues to require 6L NC with CXR yesterday suggestive of pulmonary edema. As she is currently able to take in fluids PO, recommend discontinuing IVF to prevent further contribution to pulmonary edema. 1. GAEL on CKD most likely 2/2 contrast load from angiogram on 09/01/2018 2. Hypoxia most likely 2/2 pulmonary edema 3. Hypertension - Start calcium carbonate (tums) 500 TID (with meals) for phosphate binding - Discontinue NS 150 cc/hr - Obtain renal ultrasound to rule out obstruction and to evaluate kidney size - Agree with primary team for BP control: continue nicardipine gtt and carvedilol 37.5 mg BID - Consider obtaining carotid duplex to assess for carotid artery stenosis - Monitor calcium, phosphorus, magnesium and replete as needed - Avoid ACEi/ARBs, NSAIDs, and other nephrotoxic agents - Monitor Is and Os - Daily weight Thank you for this very interesting consult. We will continue to follow. Please call with any questions. Jessa Real MD?[id number] Internal??Medicine Nephrology Consult Pager #[phone] Associated attestation - Candida Adair MD - 09/02/2018 6:52 PM EDT The patient was seen and examined with the resident. Please see the resident's note from today for details. I have reviewed the resident's note and agree with the exam, and assessment and plan. Failed attempt to stent renal artery. Awaiting Dr. Moody's recommendations. Will continue to followwith the primary team. Candida Adair MD Nephrology Pager: [phone] Med Student Progress Note - Cate Sheehan - 09/02/2018 1:45 PM EDT Hospital Medicine Sub-I Daily Progress Note Admit Date: 08/29/2018 Hospital Day 4 days Active Hospital Problems Diagnosis ??? Hypertensive urgency Resolved Hospital Problems No resolved problems to display. PMH Active Non-Hospital Problems Diagnosis ??? Renal artery stenosis ??? Abdominal aortic aneurysm (AAA) without rupture ??? Acute hepatitis ??? Viral hepatitis B acute Inpatient Medications: Scheduled ??? heparin (Porcine) 5,000 Units Subcutaneous 2 times per day ??? melatonin 3 mg Oral Nightly ??? aspirin 81 mg Oral Daily ??? atorvastatin 40 mg Oral QPM ??? gabapentin 800 mg Oral Nightly ??? levothyroxine 37.5 mcg Oral QAM ??? chlorhexidine 15 mL Oral BID ??? sodium chloride 0.9 % 5 mL Intravenous BID ??? carvedilol 37.5 mg Oral BID WC Continuous infusions: ??? sodium chloride 0.9% 75 mL/hr (09/02/18 0759) ??? niCARdipine 5 mg/hr (09/02/18 0907) PRN: BUpivacaine (PF), lidocaine, iodixanol, ipratropium-albuterol, HYDROmorphone, sodium chloride 0.9 %, lidocaine, acetaminophen Interval History: - Angiography yesterday, L renal artery stented. - Patient denies SOB but is now requiring 6L O2 - No UOP today ROS: Remarkably denies SOB, denies CP, NVD, difficulty voiding Physical Exam Vitals Range last 24 hrs Temperature Temp: [36.7 ??C (98.1 ??F)-37.6 ??C (99.7 ??F)] Heart Rate Heart Rate: [67-76] Blood Pressure BP: (122-161)/(45-98) Respiratory Rate Resp: [9-26] SpO2 SpO2: [87 %-94 %] Intake/Output Summary (Last 24 hours) at 09/02/2018 1345 Last data filed at 09/02/2018 1200 Gross per 24 hour Intake 1688.4 ml Output 405 ml Net 1283.4 ml Patient Vitals for the past 168 hrs: Weight 09/02/18 0600 48.7 kg (107 lb 5.8 oz) 09/01/18 0600 47.4 kg (104 lb 8 oz) 08/31/18 0600 47 kg (103 lb 9.9 oz) 08/29/18 1832 47.4 kg (104 lb 8 oz) 08/29/18 1827 47.4 kg (104 lb 8 oz) Body mass index is 20.29 kg/m??. PE: Gen: no acute distress Pulm: Non-labored breathing. Crackles at lung bases bilaterally. CV: RRR no MRG Abd: nontender to pal, no suprapubic fullness Extrem: no peripheral edema Studies reviewed in eDH. Remarkable for the following: LABS: Last 3 wbc, hgb, hct plt Recent Labs 09/02/18 1407 09/01/18 0020 08/31/18 0015 WBC 9.7* 6.7 8.1 HGB 11.8 11.5* 12.1 HCT 33.5* 32.9* 34.6* PLATELET 229 220 235 Last 3 Lytes Recent Labs 09/02/18 0329 09/01/18 0020 08/31/18 0015 NA 134* 134* 135 K 4.8 4.1 3.9 CL 98 99 98 CO2 20* 23 23 BUN 36* 24* 21* CREATININE 2.71* 2.17* 1.93* Last Ca, Mg, Phos Recent Labs 09/02/18 032 CALCIUM 8.5 PHOS 6.2* Last 3 ProBNP, Trop, CK Recent Labs 08/29/182042 CK 61 TROPONINT <0.01 FSBG Trend No results for input(s): POCGLU in the last 72 hours. MICRO: No results for input(s): URINECULTURE in the last 720 hours. No results for input(s): GRAMSTAIN, BFCX, LOWERRESPCX, TISSUECX in the last 720 hours. No results for input(s): BLOODCX in the last 720 hours. ECG: Recent Labs 09/02/18 0058 DIAGLINE Normal sinus rhythm Normal ECG When compared with ECG of 29-AUG-2018 21:01, Nonspecific T wave abnormality now evident in Anterior leads Nonspecific T wave abnormality no longer evident in Lateral leads QTCCALC 464 VASCULAR: Recent Labs 08/30/18 1939 VBTEXTRPT Department: Vascular Surgery Lab Patient: [id number] (PRETTY HARMON) CPT: 40240 ICD10: I70.1 Referring Physician: LILIANA ECHEVERRIA Indications: HTN crisis ICD10 Diagnosis Code: I70.1 Findings: Syl Renal Aorta PSV (cm/s): 39 EDV (cm/s): 0 Renal Artery Mid, Right PSV (cm/s): 45 EDV (cm/s): 17 RAR: 1.2 RI: 0.62 Renal Artery Distal, Right PSV (cm/s): 40 EDV (cm/s): 17 RAR: 1.0 RI: 0.58 Mid Pole Renal Parenchyma, Right PSV (cm/s): 13 EDV (cm/s): 0 RI: 1.00 Lower Pole Renal Parenchyma, Right PSV (cm/s): 13 EDV (cm/s): 0 RI: 1.00 Renal Hilum, Right AT (ms): 175 Kidney Length, Right Length (cm): 9.9 Renal Vein, Right Patent: Patent Renal Artery Ostium, Left PSV (cm/s): 177 EDV (cm/s): 17 RAR: 4.5 RI: 0.91 Renal Artery Proximal, Left PSV (cm/s): 177 EDV (cm/s): 12 RAR: 4. 5 RI: 0.93 Renal Artery Mid, Left PSV (cm/s): 95 EDV (cm/s): 10 RAR: 2.4 RI: 0.90 Renal Artery Distal, Left PSV (cm/s): 60 EDV (cm/s): 0 RAR: 1.5 RI: 1.00 Mid Pole Renal Parenchyma, Left PSV (cm/s): 61 EDV (cm/s): 14 RI: 0.77 Lower Pole Renal Parenchyma, Left PSV (cm/s): 38 EDV (cm/s): 8 RI: 0.79 Renal Hilum, Left AT (ms): 34 Kidney Length, Left Length (cm): 10.4 Renal Vein, Left Patent: Patent Interpretation: Patent aortic aneurysm with mural thrombus, maximum perirenal diameter is 3.6 cm. Previous study on 02/24/18 was 3.1 cm with what appears to be less mural thrombus compared to today's exam. Right: Suspect proximal renal artery occlusion with reconstitution of the mid segment. Doppler waveforms are consistent with abnormally elevated parenchymal resistance. Significant progression of stenosis compared to the previous exam. Left: Patent main lisa l artery with no evidence of hemodynamically significant stenosis. Higher velocities (255 cm/s) were not seen on today's exam. No significant change compared to previous exam. Dr. Moody was notified of the results. Electronically Signed by: LEAH PEREZ on 2018-08-31 02:05:36 PM End of Report IMAGING: TTE 08/30/18: SUMMARY: ?? 1. Mild concentric left ventricular hypertrophy is observed. ??There is normal global left ventricular systolic function. ??The quantitative left ventricular ejection fraction by biplane Whitley's method is 54%. ??There are no left ventricular segmental wall motion abnormalities. 2. Doppler assessment is consistent with elevated left sided filling pressure. 3. Right ventricular chamber size, wall thickness, and systolic function are within normal limits. 4. There is no hemodynamically significant valve disease. 5. See remainder of report for additional findings. Assessment: 67 year old female with PMH significant for HTN, systolic and diastolic CHF, bilateral renal artery stenosis ( R completely occluded, recent angio demonstrated only mild stenosis at origin at L main renal artery), 3.7 cm AAA, CKD (baseline creat 2) who presented to OSH with hypertensive urgency and acute exacerbation of CHF with acute hypoxic resp failure. Treated with nicardepine drip and lasix dripand initially required BiPap but discontinued at time of transfer. Transferred for consideration of renal artery interventions by vascular surgery. Angiography yesterday. R renal artery was not able to be stented, angiography revealed that L renal artery is only mildly stenosed. Creatinine up to 2.71 from 2.17 yesterday (baseline cr ~2). Pt only produced ~200 mL urine overnight, none produced so far today. Suspect contrast-induced nephropathy. BP well controlled with nicardipine drip. Patient started on fluids this early this morning to help flush contrast which resulted in increasing O2 reqirements (low 90s on 6L), CXR confirms pulmonary edema with mild effusion at bases though patient is remarkably asymptomatic. Plan to maximize interventions short of lasix to improve breatihng (e.g. Ambulation, ISS) until UOP picks up. Plan: #Hypertensive urgency #Rt renal artery occlusion - Angiography yesterday, stent placement unsuccessful - Continuing nicardepine drip with higher BP target to maximize kidney purfusion - Continuing carvedilol - holding amlodipine - pending medical stabilization vascular will discus the possibility of open surgery with bypass graft to Rt kidney and repair of AAA #GAEL in the setting of CKD - suspect contrast induced nephropathy with recent angio - holding lasix, IVF at 75 ml/hr - Continuing nicardepine drip with higher BP target to maximize kidney purfusion - monitor UOP and BMP #acute hypoxic respiratory failure #acute on chronic decompensation of diastolic and systolic heart failure - holding lasix in light of low urine output and concern for contrast nephropathy though there is evidence of pulmonary edema and an increased O2 need IV access: pIV Tubes/Drains:None DVT PPX: WILFRED an walks 3x/d Anticipated Disposition: pending improvement of kidney function Goals of Care: Team Pager(MD Coverage 17/11): #[phone] PCP: Sanjuanita Lee MD [phone] Cate Sheehan MS3 Pager [phone] 09/02/2018 Plan of Care - Lorraine Rivero RN - 09/02/2018 4:42 AM EDT Problem: Patient Care Overview Goal: Plan of Care Review Outcome: Ongoing (Interventions Implemented as Appropriate) 09/02/18 0438 Coping/Psychosocial Plan Of Care Reviewed With patient Plan of Care Review Progress improving OUTCOME EVALUATION NOTE: OUTCOME SUMMARY [id number]: A/Ox4. Afebrile. HR 60s-70s. SBP 130s-140s on Nicarapine gtt 5mg/hr. On 4L NC with SPO2 low 90s. C/oheartburn and nausea. One time dose of tums ordered and administered with relief of symptoms. +BM. Received 40mg IV lasix. Voided x1 in bedside commode; urine mixed with stool and unable to be measured. Right groin site clean dry and intact. Repositions independently. Will continue to monitor. PLAN MOVING FORWARD: -I/Os -Monitor labs -BP control INDIVIDUALIZED FALL PREVENTION INTERVENTIONS: Patient-specific fall risk factors per assessment: [current deficits]: Weakness/deconditioning Assistance [level of assistance required for transfers and ambulation]: SBA Supervision [direct monitoring required during toileting and ADLs]: Minimal- moderate assist Surveillance [continuous indirect monitoring]: Purposeful rounding, room near RN station, bed alarm Patient-specific fall prevention interventions for sensory deficits provided, if applicable: [X] Yes CPG GOAL OUTCOME EVALUATION: Goal: Fall Prevention-Safe Patient Handling Outcome: Ongoing (Interventions Implemented as Appropriate) 08/31/18 1445 09/01/18 1200 09/01/18 1654 Lamb Fall Risk History of Falling -- -- -- Secondary Diagnosis -- -- -- Ambulatory Aids -- -- -- Intravenous Therapy/Heparin/Saline Lock -- -- -- Gait/Transferring -- -- -- Mental Status -- -- -- Score -- -- -- OTHER Lamb Fall Risk -- -- -- Restraint Interventions Safety Promotion/Fall Prevention -- -- -- Positioning Body Position -- -- supine Activity Activity Type -- -- -- Activity Assistance Provided -- independent -- Assistive Device Utilized oxygen -- -- 09/01/18199909/01/18219909/02/18 0400 Lamb Fall Risk History of Falling 0 -- -- Secondary Diagnosis 15 -- -- Ambulatory Aids 15 -- -- Intravenous Therapy/Heparin/Saline Lock 20 -- -- Gait/Transferring 10 -- -- Mental Status 0 -- -- Score 60 -- -- OTHER Lamb Fall Risk High -- -- Restraint Interventions Safety Promotion/Fall Prevention -- -- fall prevention program maintained Positioning Body Position -- -- -- Activity Activity Type -- activity adjusted per tolerance -- Activity Assistance Provided -- -- -- Assistive Device Utilized -- -- -- Goal: Infection Control Outcome: Ongoing (Interventions Implemented as Appropriate) 09/01/18199909/02/18399 Safety Interventions Isolation Precautions -- standard precautions maintained Infection Prevention -- rest/sleep promoted Coping Strategies Supportive Measures active listening utilized -- Op Note - Leah Cline MD - 09/01/2018 5:21 PM EDT [facility] Operative Note ?? Patient Name: rPetty Harmon : [id number] MR#: [id number] ?? Case Date: 09/01/2018 ?? Surgeon: Surgeon(s) and Role: * Greyson Chen MD - Primary * Leah Cline MD - Resident ?? 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 Procedure: 1. Right common femoral access under US guidance 2. Aortogram 3. Third order selective catheterization of left renal artery 4. 6F Mynx closure ?? Procedure(s) (LRB): SELECT CATH PLACE (FIRST-ORDER), MAIN RENAL ART & ANY ACC, W/S&I; ANDREY (WRVU 6.99) (Bilateral) ? Anesthesia: General ?? 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 EBL 5 IVF 200 Dye 29.5 cc Heparin: 4000U Protamine: 25 mg Fluoro time: 20.3 min ?? Complications: none ?? Estimated Blood Loss: 5cc ?? Specimens removed during surgery: None Fluids: 200 cc PRBCs: none (See Anesthesia Record/Report for Other Blood Products) Urine Output: (no urine output recorded) - no caballero ?? Drains: none ?? Disposition: awakened from anesthesia, extubated and taken to the recovery room in a stable condition, having suffered no apparent untoward event. ?? Condition: doing well without problems - some wheezing ?? (Please see the Surgical Encounter Summary for any Implant and Specimen details pertinent to this patient.) ?? Infection Bundle used? NA pre op ancef HPI: 67F with hx of diastolic heart failure and previous episodes of systolic heart failure (with EF downto 35% though currently recovered with EF 54%). Pt was noted on renal duplex in Feb, 2018 to have bilat renal artery stenosis R>>L. At that point her BP was controlled medically and renal stenting was deferred. She now presents with hypertensive urgency - 4 admission for hypertensive urgency and? Fluid overload to OSH in 6 months. Duplex 2 days ago showed occlusion of origin of right renal artery with reconstitution of mid segment and patent left renal. Pt also has 3.7 cm AAA for which she follows in vascular. Plan today for bilat renal angiogram and stenting as indicated. Procedure: The patient was correctly identified in the pre-procedure holding area. After a discussion of the risks and benefits, operative consent was obtained. The patient was brought to the OR and placed supineupon the OR table. The patient was prepped and draped in the usual sterile fashion. A time-out was performed by the attending surgeon. Retrograde percutaneous access was obtained in the right common femoral artery via micropuncture technique under flouroscopic guidance after infiltration with local anesthetic (10cc). This was then up-sized to a 10 cm 5F sheath over a J-wire. The wire was advanced into the supra-renal aorta. A 5F omni-flush catheter was advanced into the supra renal aorta over the wire. Diagnostic aortography was performed showing the origin of the left renal and no clear origin of the right renal. Sheath was exchanged for a 6Fr shoshana and C2 catheter/glide wire. Using the shoshana/C2/glide the left renal artery was selected. The wire was exchanged for a hutchins. Angiogram was performedthrough the catheter and then through the sheath showing a widely patent left renal. Repeat aortogram was performed using shoshana sheath, revealing occluded origin of main right renal artery with reconstitution of mid renal about 1 cm from origin at area of branch point, with several collaterals. A significant amount of time was spent using the shoshana/C2/glide in attempt to cannulate the right renal artery. However this was not successful and we could not even access a nubin in the vessel origin. Therefore procedure was stopped. Wire was exchanged for a jwire and short 6F sheath. 6F Mynx was deployed successfully. The sheath was removed and manual pressure was held over the puncture site for 15 minutes. Hemostasis was satisfactory. The puncture site was dressed with a dry gauze and tegaderm. Right foot had palpable DP pulse. Dr. Chen the attending surgeon was scrubbed and present for the entire procedure. Plan: Flat until 7 pm, then ok to sit up and ambulate Unable to cross renal artery occlusion on right (proximal 1 cm occluded then reconstitutes) Dr Moody will discuss future options w/ patient (medical management vs open aorta to R renal bypass) Associated attestation - Greyson Chen MD - 09/01/2018 5:31 PM EDT Attestation: Case Date: 09/01/2018 I was present and I participated during the entire procedure (does not need to include opening and closing). 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 Right common femoral access under US guidance 2. Aortogram 3. Third order selective catheterization of left renal artery 4. 6F Mynx closure Procedure(s) (LRB): SELECT CATH PLACE (FIRST-ORDER), MAIN RENAL ART & ANY ACC, W/S&I; ANDREY (WRVU 6.99) (Bilateral) Anesthesia: General 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 access Able to select left renal with 6Fr shoshana/C2 catheter/glide wire Designated left renal angiogram showed widely patent left main renal artery (very mild stenosis at origin but thereafetr widely patent) Designated right renal angiogram showed occluded right renal artery at origin with reconstitution ~1cm from origin at branch point, several collateral vessels in area Attempted for quite some time to select right renal with shoshana/C2/glidewire - but could not even catch on vessel origin 6F deployed right ADMINISTRATIVE UNDERWRITER, no hematoma, +right DP pulse at case end Pt was wheezing during case, spo2 in recovery ~89%, medicine team notified and will eval for additional diuresis EBL 5 IVF 200 Dye 29.5 cc Heparin: 4000U Protamine: 25 mg Fluoro time: 20.3 min Complications: none Estimated Blood Loss: 5cc Specimens removed during surgery: None Fluids: 200 cc PRBCs: none (See Anesthesia Record/Report for Other Blood Products) Urine Output: (no urine output recorded) - no caballero Drains: none Disposition: awakened from anesthesia, extubated and taken to the recovery room in a stable condition, having suffered no apparent untoward event. Condition: doing well without problems - some wheezing (Please see the Surgical Encounter Summary for any Implant and Specimen details pertinent to this patient.) Infection Bundle used? NA pre op ancef Plan of Care - Corwin Ji RN - 09/01/2018 1:13 PM EDT Problem: Patient Care Overview Goal: Plan of Care Review Outcome: Ongoing (Interventions Implemented as Appropriate) 08/30/18 1805 09/01/18 0800 Coping/Psychosocial Plan Of Care Reviewed With -- patient Plan of Care Review Progress progress toward functional goals as expected -- OUTCOME EVALUATION NOTE: OUTCOME SUMMARY: Pt resting comfortably, through voicing complaints of being NPO. Mouth care provided. Nicardipine gtt between 5-7.5 during the day to maintain SBP in the 130s. Pt reporting that she doesn't need to urinate, but so far has not voided since AM. Pt continues to be NPO give meds. PLAN MOVING FORWARD: OR for renal stenting INDIVIDUALIZED FALL PREVENTION INTERVENTIONS: Patient-specific fall risk factors per assessment: [current deficits]: LDAs, weakness, Assistance [level of assistance required for transfers and ambulation]: 1a Supervision [direct monitoring required during toileting and ADLs]: Hands on Surveillance [continuous indirect monitoring]: Masimo, tele, environmental mods Patient-specific fall prevention interventions for sensory deficits provided, if applicable: [X] Yes CPG GOAL OUTCOME EVALUATION: Goal: Individualization & Mutuality Outcome: Ongoing (Interventions Implemented as Appropriate) 08/29/18 1839 Mutuality/Individual Preferences What Anxieties, Fears or Concerns Do You Have About Your Health or Care? none What Questions Do You Have About Your Health or Care? none What Information Would Help Us Give You More Personalized Care? call me Pretty Goal: Fall Prevention-Safe Patient Handling Outcome: Ongoing (Interventions Implemented as Appropriate) 08/31/18 1445 09/01/18 0800 09/01/18 1200 [place] Fall Risk History of Falling -- 0 -- Secondary Diagnosis -- 15 -- Ambulatory Aids -- 0 -- Intravenous Therapy/Heparin/Saline Lock -- 20 -- Gait/Transferring -- 0 -- Mental Status -- 0 -- Score -- 35 -- OTHER [place] Fall Risk -- Med -- Restraint Interventions Safety Promotion/Fall Prevention -- -- activity supervised;fall prevention program maintained;nonskid shoes/slippers when out of bed;safety round/check completed Positioning Body Position -- -- independent Activity Activity Type -- -- activity adjusted per tolerance Activity Assistance Provided -- -- independent Assistive Device Utilized oxygen -- -- Goal: Infection Control Outcome: Ongoing (Interventions Implemented as Appropriate) 08/31/18199909/01/18 1200 Safety Interventions Isolation Precautions -- standard precautions maintained Infection Prevention -- environmental surveillance performed;rest/sleep promoted Coping Strategies Supportive Measures active listening utilized;decision-making supported -- Plan of Care - Eneida Ag RN - 08/31/2018 12:39 AM EDT Problem: Patient Care Overview Goal: Plan of Care Review Outcome: Ongoing (Interventions Implemented as Appropriate) 08/30/18 18008/30/181999 Coping/Psychosocial Plan Of Care Reviewed With -- patient Plan of Care Review Progress progress toward functional goals as expected -- OUTCOME EVALUATION NOTE: OUTCOME SUMMARY: Patient AOx4, denies pain. Nicardipine gtt remains on and titrated between 5-10 for BP control for goal of systolics between 110-150. HR NSR, remains on 4LNC to maintain O2 sats. Able to ambulate to bathroom with SBA. Lungs appreciable for crackles in the bases. Given prn tylenol and melatonin for sleep aid. Will continue monitoring. PLAN MOVING FORWARD: Stenting procedure thursday INDIVIDUALIZED FALL PREVENTION INTERVENTIONS: Patient-specific fall risk factors per assessment: [current deficits]: gen weakness Assistance [level of assistance required for transfers and ambulation]: SBA Supervision [direct monitoring required during toileting and ADLs]: SBA Surveillance [continuous indirect monitoring]: Call carmona in reach, purposeful rounding, room near unit station Patient-specific fall prevention interventions for sensory deficits provided, if applicable: [X] No CPG GOAL OUTCOME EVALUATION: Making progress. Goal: Individualization & Mutuality Outcome: Ongoing (Interventions Implemented as Appropriate) 08/29/181838 Mutuality/Individual Preferences What Anxieties, Fears or Concerns Do You Have About Your Health or Care? none What Questions Do You Have About Your Health or Care? none What Information Would Help Us Give You More Personalized Care? call me Chang Goal: Fall Prevention-Safe Patient Handling Outcome: Ongoing (Interventions Implemented as Appropriate) 08/29/18183708/30/18179908/30/181999 [place] Fall Risk History of Falling -- -- 0 Secondary Diagnosis -- -- 15 Ambulatory Aids -- -- 0 Intravenous Therapy/Heparin/Saline Lock -- -- 20 Gait/Transferring -- -- 0 Mental Status -- -- 0 Score -- -- 35 OTHER [place] Fall Risk -- -- Med Restraint Interventions Safety Promotion/Fall Prevention -- -- -- Positioning Body Position -- -- -- Activity Activity Type -- -- -- Activity Assistance Provided -- assistance, stand-by -- Assistive Device Utilized none -- -- 08/31/18 [place] Fall Risk History of Falling -- Secondary Diagnosis -- Ambulatory Aids -- Intravenous Therapy/Heparin/Saline Lock -- Gait/Transferring -- Mental Status -- Score -- OTHER [place] Fall Risk -- Restraint Interventions Safety Promotion/Fall Prevention safety round/check completed;nonskid shoes/slippers when out of bed;fall prevention program maintained;activity supervised Positioning Body Position independent Activity Activity Type activity adjusted per tolerance Activity Assistance Provided -- Assistive Device Utilized -- Goal: Infection Control Outcome: Ongoing (Interventions Implemented as Appropriate) 08/30/18199908/31/18 0000 Safety Interventions Isolation Precautions -- standard precautions maintained Infection Prevention -- rest/sleep promoted;environmental surveillance performed Coping Strategies Supportive Measures active listening utilized;decision-making supported;positive reinforcement provided;relaxation techniques promoted;verbalization of feelings encouraged -- Goal: Discharge Needs Assessment Outcome: Ongoing (Interventions Implemented as Appropriate) 08/29/18 1853 Current Health Anticipated Changes Related to Illness none Activity/Self Care Review of Systems Equipment Currently Used at Home none Living Environment Transportation Available car;family or friend will provide Discharge Needs Assessment Discharge Disposition still a patient Goal: Interdisciplinary Rounds/Family Conf Outcome: Ongoing (Interventions Implemented as Appropriate) 08/29/18 1853 Interdisciplinary Rounds/Family Conf Participants family;nursing;patient;physician Plan of Care - Giuliana Sampson RN - 08/30/2018 6:06 PM EDT Problem: Patient Care Overview Goal: Plan of Care Review Outcome: Ongoing (Interventions Implemented as Appropriate) 08/30/18 1805 Coping/Psychosocial Plan Of Care Reviewed With patient Plan of Care Review Progress progress toward functional goals as expected OUTCOME EVALUATION NOTE: OUTCOME SUMMARY: Patient AAOx4, cooperative. Up OOB to bathroom, steady gait. On 2.5-5 of nicardipine for goal SBP 110-150. 4L NC for sats >90%. Poor po intake, TTE with EF 54%. Renal artery duplex done, vascular atbedside to discuss plan PLAN MOVING FORWARD: SBP 110-150 w/nicardipine,m OR on Thursday with vascular Initial Assessments - Shannen Isaacs RN - 08/30/2018 8:35 AM EDT Office of Care Management Initial Assessment Shannen Isaacs RN reviewed record and discussed patient with Care Team. Source of Information: pt Introduced self/reviewed role; services accepted. Reason for Hospitalization: Reason for Admission as Stated by Patient: renal artery stenosis History of Present Illness: HPI 67 yo woman with of combined systolic and diastolic CHF (EF 30%), moderate MR, 3.7 cm AAA, h/o acuteviral hepatitis (B), bilat renal artery stenosis followed by vascular, and CKD Cr ~2 presented to [facility] w hypertensive urgency and acute on chronic diastolic CHF. Nitroglycerin drip was ineffective and nicardipine was started. nitially required BIPAP. Off since 5/4 am.Was placed on nitro drip originally and admitted to ICU. Nitroglycerin was Unable to wean nicardipine and transferred here for consideration of vascular intervention of bilateral renal artery stenosis. Admitted elsewhere in Mar 2018 (reports in scanned docs) for hypertensive urgency, demand ischemia and acute systolic/diastolic CHF. EF on echo 04/21 EF 35-40%, diffuse HK, diastolic dysfunction. pulm htn 50-55, and mod Was subsequently admitted on in May, June/July and this is [facility]th hospital[facility]. Feels fine in between episodes. Develops symptoms with sudden onset. Had notes BP tend to be in 130;s )checks multiple times a day. No drug use, no OTC or herbal medications. Takes her medications faithfully. Had been seeing renal and vascular re: [facility]ING. Renal had recommended trial of medications previously though she has had ongoing h ospitalizations (she was supposed to followup tomorrow) No chest pain or pressure unless in one of the episodes. Of note she walks a mile a day M-F at her work. Does not feel limited by breathing except during these episodes. Per her and reports hadneg stress test on 08/25TLiliana harmon MD Date of Service: 08/29/2018 ??4:44 PM Past Medical History: Diagnosis Date ??? AAA (abdominal aortic aneurysm) [id number] angiogram; 3.2 cm infrarenal ??? Constipation ??? Dyslipidemia ??? Hypertension ??? Insomnia ??? Peripheral vascular disease ??? Renal artery stenosis R; per 2009 angiogram Hospitalizations Within the Past 30 Days: se H&P Anticipated Length Of Stay (If known): Expected Length of Hospitalization: tbd Current Decision-Making Capacity: a,ox3 Advance Care Planning: to Rodolfo Harmon [phone] who is surrogate MPOA Current Coping/Education/Information Needs: CM explained VNA/rehab/OUTPT Services Current Functional Ability: SBA/ a,o Functional Status Prior to Admission: 100%ADL poli/no DME used/drove self Home Environment: lives with spouse, in 3 story house, 4 steps YTD Social & Family Supports/Community Resources: and has friends Behavioral Health History: denied Substance Use/Abuse: denied DAST 10 In the past year have you used an illegal drug or used a prescription medication for non-medical reaons?: No In the past year have you used opioids (oxycodone, Vicodin, heroin, fentanyl, buprenorphine, methadone, etc.) for non-medical reasons?: No AUDIT In the past year have you had 4 or more drinks a day containing alcohol?: No Other Pertinent/Service Specific Information: na Health/Prescription Coverage: Primary Insurance: MEDICARE Secondary Insurance: [employer] [place] Prescription Coverage: yes Preferred [facility]acy: [facility] Primary Care Provider: Sanjuanita Lee MD [phone] Patient/Caregiver Goals of Treatment: Home with MD follow up Potential Needs for Transition of Care: Rehab/SNF: declined Home Health: declined DME: na Dialysis: na Community Resources: na Transportation: spouse Anticipated Barriers to Discharge/Special Considerations: na Assessment: 67yowf in w/ acute Hypertensive crsis. A,o x3. with supportive spouse and friends. Declined needing services- will follow up w/ Mds after DC Plan: A member of the Care Management team will continue to monitor progress, follow for continuity of care and assist with transition of care planning. Shannen Isaacs, RN Pager: [phone] Plan of Care - Corwin Hendrickson RN - 08/30/2018 6:12 AM EDT Problem: Patient Care Overview Goal: Plan of Care Review Outcome: Ongoing (Interventions Implemented as Appropriate) 08/29/18 1853 08/29/181999 Coping/Psychosocial Plan Of Care Reviewed With -- patient;spouse Plan of Care Review Progress no change -- OUTCOME EVALUATION NOTE: OUTCOME SUMMARY: Pt alert and orientedx4. Arrived to unit on 3L NC. Crackles noted in lung bases. Nicardipine gtt initiated and titrated down over the course of the shift. Currently off as of 544. Pt kept NPO after midnight. Vitals stable. No numbness/tingling reported. Abdomen soft/nontender. Ambulating to bathroom w ithout issue. Strong pulses throughout. Active bowel sounds. No significant events overnight. Will continue to monitor. PLAN MOVING FORWARD: Duplex study, Echo, Renal stenting INDIVIDUALIZED FALL PREVENTION INTERVENTIONS: Patient-specific fall risk factors per assessment: [current deficits]: Weakness Assistance [level of assistance required for transfers and ambulation]: SBA Supervision [direct monitoring required during toileting and ADLs]: Eyes on Surveillance [continuous indirect monitoring]: Jannet monitor, room near unit station Patient-specific fall prevention interventions for sensory deficits provided, if applicable: [X] Yes CPG GOAL OUTCOME EVALUATION: Consult Note - Que Coburn MD - 08/29/2018 8:08 PM EDT Vascular Surgery Inpatient Consult Note HPI: Pretty Harmon is a 67 y.o. female with PMH hypothyroidism, HTN, AAA, CHF (EF 35%), CKD, bilateral renal artery stenosis who presents from OSH with hypertensive emergency and volume overload. Requiring a nicardipine gtt for blood pressure control. She reports having dyspnea and diaphoresis on Thursday. Shehas been hospitalized multiple times in the past four months for hypertensive urgency. She denies headache, chest pain, palpitations, abdominal pain, diarrhea, constipation, and dysuria. Vascular Surgery was consulted for evaluation of renal stenosis and possible renal artery stent placement. Evaluated for renal artery stenosis in February 2018. At that time found to have right renal artery stenosis. Plan at that time was to continue medical management and follow up in 6 months. PMH: Past Medical History: Diagnosis Date ??? AAA (abdominal aortic aneurysm) [id number] angiogram; 3.2 cm infrarenal ??? Constipation ??? Dyslipidemia ??? Hypertension ??? Insomnia ??? Peripheral vascular disease ??? Renal artery stenosis R; per 2009 angiogram PSH: Past Surgical History: Procedure Laterality Date ??? HYSTERECTOMY ??? PRO UPPER GI ENDOSCOPY, DIAGNOSTIC 01/20/2014 EGD, UPPER GI ENDOSCOPY performed by Corby Cano MD at [facility] ENDOSCOPY ??? PRO UPPER GI ENDOSCOPY, DIAGNOSTIC N/A 07/28/2017 EGD, UPPER GI ENDOSCOPY performed by Snow Liao MD at [facility] ENDOSCOPY MEDICATIONS: No current facility-administered medications on file prior to encounter. Current Outpatient Medications on File Prior to Encounter Medication Sig Dispense Refill ??? levothyroxine (SYNTHROID) 25 mcg Tablet Take 37.5 mcg by mouth daily. ??? isosorbide mononitrate (IMDUR) 30 mg Tablet Sustained Release 24 hr Take 30 mg by mouth daily. ??? potassium chloride (K-DUR/KLOR-CON) 10 mEq Tablet Sustained Release Take 2 tablets by mouth 2 times daily. 120 tablet 3 ??? aspirin 81 mg Tablet, Delayed Release (E.C.) Take 81 mg by mouth daily. ??? furosemide (LASIX) 20 mg Tablet Take 20 mg by mouth every other day. ??? carvedilol (COREG) 25 mg Tablet Take 37.5 mg by mouth daily. Patient takes 1 1/2 tablets daily. ??? atorvastatin (LIPITOR) 40 mg Tablet TAKE ONE TABLET BY MOUTH EVERY DAY 3 ??? cholecalciferol, Vitamin D3, (VITAMIN D) 1,000 unit Tablet Take 1,000 Units by mouth. ??? gabapentin (NEURONTIN) 800 mg Tablet Take 800 mg by mouth nightly. ??? amlodipine (NORVASC) 10 mg tablet Take 10 mg by mouth daily. ALLERGIES: Allergies Allergen Reactions ??? Lisinopril Rise in creatinine FAMILY HISTORY: Family History Problem Relation Age of Onset ??? Cancer Mother ??? Chronic Obstructive Pulmonary Disease Father - Denies history of bleeding or clotting disorders. Denies history of reactions to anesthesia. SOCIAL HISTORY: Social History Socioeconomic History ??? [...] Former Smoker Packs/day: 0.50 ??? Smokeless tobacco: Former User Quit date: 07/14/2012 Substance and Sexual Activity ??? 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 No history of heavy etoh use 2 children healthy REVIEW OF SYSTEMS: 12 point review of system otherwise negative except as above PHYSICAL EXAM: VS: (Temp: [37.1 ??C (98.8 ??F)] ) Temp: 37.1 ??C (98.8 ??F), (Heart Rate: [83- 85] ) Heart Rate: 85,(BP: (165-173)/(75-76) ) BP: 165/76, (Resp: [16] ) Resp: 16, (SpO2: [92 %-95 %] ) SpO2: 95 % GA: NAD, resting comfortably CV: regular without Pulm: unlabored breathing on RA, no use of accessory muscles, no stridor/audible wheezing ABD: not distended, soft, nontender to palpation Extr: warm and well perfused, no notable edema Neuro: no focal deficits 24 Hr I/O's: No intake/output data recorded. LABS: No results for input(s): WBC, HGB, HCT, PLATELET, NEUTROABS in the last 168 hours. No results for input(s): NA, K, CL, CO2, BUN, CREATININE in the last 168 hours. No results for input(s): CALCIUM, MAGNESIUM, PHOS in the last 168 hours. No results for input(s): GLUCOSE in the last 168 hours. No results for input(s): AMYLASE, BFAMYLASE in the last 168 hours. No results for input(s): ALB, AST, ALT, ALKPHOS, BILITOT, BILIDIR, LDH in the last 168 hours. No results for input(s): INR, PT, PTT in the last 168 hours. No results for input(s): CK in the last 168 hours. MICRO: CARDS/VASC: IMAGING: ASSESSMENT and RECOMMENDATIONS: Pretty Harmon is a 67 y.o. female with PMH HTN, AAA, CHF (EF 35%), CKD, bilateral renal artery stenosis and multiple hospitalization for hypertensive urgency who presents from OSH with uncontrolled hypertension on nicardipine gtt. Vascular surgery consulted for possible renal artery stent placing. NPO after midnight. Repeat renal artery duplex in AM. Will discuss further for potential renal artery stenting tomorrow. Que Coburn MD 08/29/2018 [id number] Associated attestation - Unique Moody MD - 08/30/2018 2:11 PM EDT Pt interviewed studies reviewed,agree with above note and plan for renal arteriogram possible L renal stent. Plan of Care - Eneida Ag RN - 08/29/2018 6:57 PM EDT Problem: Patient Care Overview Goal: Plan of Care Review Outcome: Ongoing (Interventions Implemented as Appropriate) 08/29/18 5723 Coping/Psychosocial Plan Of Care Reviewed With patient;spouse Plan of Care Review Progress no change OUTCOME EVALUATION NOTE: OUTCOME SUMMARY: Patient arrived from OSH 1830 on 4LNC, NSR 80s, BP 170s/70s, afebrile. Denies pain. AOx4, able to ambulate to bathroom and void spontaneously, denies numbness or tingling, no edema. Abdomen SNT with +BS. Lungs clear and dim in the bases with fine crackles. Dyspneic on exertion. 2PIVs intact and flush.Skin intact. at bedside, Rodolfo who is her DPOA and a copy of her advanced directives was requested to be sent here. Will continue monitoring. PLAN MOVING FORWARD: Nicardipine gtt & BP control Renal artery stenting INDIVIDUALIZED FALL PREVENTION INTERVENTIONS: Patient-specific fall risk factors per assessment: [current deficits]: Generalized weakness, ANN Assistance [level of assistance required for transfers and ambulation]: SBA Supervision [direct monitoring required during toileting and ADLs]: SBA Surveillance [continuous indirect monitoring]: Call carmona in reach, purposeful rounding, room near nurses station Patient-specific fall prevention interventions for sensory deficits provided, if applicable: [X] No CPG GOAL OUTCOME EVALUATION: No change. Goal: Individualization & Mutuality Outcome: Ongoing (Interventions Implemented as Appropriate) 08/29/181838 Mutuality/Individual Preferences What Anxieties, Fears or Concerns Do You Have About Your Health or Care? none What Questions Do You Have About Your Health or Care? none What Information Would Help Us Give You More Personalized Care? call me Pretty Goal: Fall Prevention-Safe Patient Handling Outcome: Ongoing (Interventions Implemented as Appropriate) 08/29/18183608/29/181837 Lamb Fall Risk History of Falling 0 [...] Position -- independent Activity Activity Type -- ambulated to bathroom Activity Assistance Provided -- assistance, stand-by Assistive Device Utilized -- none Goal: Infection Control Outcome: Ongoing (Interventions Implemented as Appropriate) 08/29/181837 Safety Interventions Isolation Precautions standard precautions maintained Infection Prevention rest/sleep promoted;environmental surveillance performed Goal: Discharge Needs Assessment Outcome: Ongoing (Interventions Implemented as Appropriate) 08/29/181852 Current Health Anticipated Changes Related to Illness none Activity/Self Care Review of Systems Equipment Currently Used at Home none Living Environment Transportation Available car;family or friend will provide Discharge Needs Assessment Discharge Disposition still a patient Goal: Interdisciplinary Rounds/Family Conf Outcome: Ongoing (Interventions Implemented as Appropriate) 08/29/18 7683 Interdisciplinary Rounds/Family Conf Participants family;nursing;patient;physician documented in this encounter Plan of Treatment Scheduled Orders Name Type Priority Associated Diagnoses Order S chedule IR OR VASC Imaging Storage Routine Once PRN (fo r Radiant Aniogram Image Only use) for 1 Storage Only Occurrences sta rting 09/01/2018 unti l 09/01/2018, 1 completed Scheduled Procedures Name Priority Associated Diagnoses Date/Time EGD, UPPER GI ENDOSCOPY Gastroesophageal reflux disease, esophagitis presence not specifi ed documented as of this encounter Procedures Procedure Name Priority Date/Time Associated Diagnosis Comme nts BMP W/FASTING GLUCOSE Routine 09/14/2018 5:16 Res ults for this AM EDT procedure are i n the results section. HEMOGRAM Routine 09/14/2018 5:16 Results for this AM EDT procedure are i n the results section. DIFFERENTIAL, Routine 09/14/2018 5:16 Results for this AUTOMATED AM EDT procedure are i n the results section. CBC (WITH DIFF) Routine 09/14/2018 5:16 AM EDT MAGNESIUM Routine 09/14/2018 5:16 Results for this AM EDT procedure are i n the results section. BMP W/FASTING GLUCOSE Routine 09/13/2018 5:50 Res ults for this AM EDT procedure are i n the results section. HEMOGRAM Routine 09/13/2018 5:50 Results for this AM EDT procedure are i n the results section. DIFFERENTIAL, Routine 09/13/2018 5:50 Results for this AUTOMATED AM EDT procedure are i n the results section. CBC (WITH DIFF) Routine 09/13/2018 5:50 AM EDT MAGNESIUM Routine 09/13/2018 5:50 Results for this AM EDT procedure are i n the results section. POTASSIUM Routine 09/12/2018 8:00 Results for this AM EDT procedure are i n the results section. BMP W/FASTING GLUCOSE Routine 09/12/2018 1:10 Res ults for this AM EDT procedure are i n the results section. HEMOGRAM Routine 09/12/2018 1:10 Results for this AM EDT procedure are i n the results section. DIFFERENTIAL, Routine 09/12/2018 1:10 Results for this AUTOMATED AM EDT procedure are i n the results section. CBC (WITH DIFF) Routine 09/12/2018 1:10 AM EDT MAGNESIUM Routine 09/12/2018 1:10 Results for this AM EDT procedure are i n the results section. POTASSIUM Routine 09/11/2018 6:20 Results for this PM EDT procedure are i n the results section. BMP W/FASTING GLUCOSE Routine 09/11/2018 7:30 Res ults for this AM EDT procedure are i n the results section. HEMOGRAM Routine 09/11/2018 7:30 Results for this AM EDT procedure are i n the results section. DIFFERENTIAL, Routine 09/11/2018 7:30 Results for this AUTOMATED AM EDT procedure are i n the results section. CBC (WITH DIFF) Routine 09/11/2018 7:30 AM EDT MAGNESIUM Routine 09/11/2018 7:30 Results for this AM EDT procedure are i n the results section. UNILATERAL BYPASS Routine 09/10/2018 8:30 Renal artery Results for this GRAFT ASSESS AM EDT stenosis procedure are i n the results section. URINALYSIS MICROSCOPIC Routine 09/10/2018 7:50 Re sults for this EXAM AM EDT procedure are i n the results section. URINE HOLD Routine 09/10/2018 7:50 Results for this AM EDT procedure are i n the results section. URINALYSIS WITH REFLEX Routine 09/10/2018 7:50 Re sults for this CULTURE AM EDT procedure are i n the results section. BMP W/FASTING GLUCOSE Routine 09/10/2018 2:45 Res ults for this AM EDT procedure are i n the results section. HEMOGRAM Routine 09/10/2018 2:45 Results for this AM EDT procedure are i n the results section. DIFFERENTIAL, Routine 09/10/2018 2:45 Results for this AUTOMATED AM EDT procedure are i n the results section. CBC (WITH DIFF) Routine 09/10/2018 2:45 AM EDT MAGNESIUM Routine 09/10/2018 2:45 Results for this AM EDT procedure are i n the results section. BMP W/FASTING GLUCOSE Routine 09/09/2018 2:50 Res ults for this AM EDT procedure are i n the results section. HEMOGRAM Routine 09/09/2018 2:50 Results for this AM EDT procedure are i n the results section. DIFFERENTIAL, Routine 09/09/2018 2:50 Results for this AUTOMATED AM EDT procedure are i n the results section. CBC (WITH DIFF) Routine 09/09/2018 2:50 AM EDT MAGNESIUM Routine 09/09/2018 2:50 Results for this AM EDT procedure are i n the results section. SCAN, PERIPHERAL BLOOD Routine 09/08/2018 3:00 Re sults for this PM EDT procedure are i n the results section. HEMOGRAM Routine 09/08/2018 3:00 Results for this PM EDT procedure are i n the results section. DIFFERENTIAL, Routine 09/08/2018 3:00 Results for this AUTOMATED PM EDT procedure are i n the results section. CBC (WITH DIFF) Routine 09/08/2018 3:00 PM EDT BASIC METABOLIC PANEL Routine 09/08/2018 3:00 Res ults for this (NON-FASTING) PM EDT procedure are in the results section. HEMOGRAM Routine 09/08/2018 6:30 Results for this AM EDT procedure are i n the results section. DIFFERENTIAL, Routine 09/08/2018 6:30 Results for this AUTOMATED AM EDT procedure are i n the results section. CBC (WITH DIFF) Routine 09/08/2018 6:30 AM EDT BMP W/FASTING GLUCOSE Routine 09/08/2018 5:15 Res ults for this AM EDT procedure are i n the results section. LACTATE, WHOLE BLOOD, Routine 09/08/2018 5:15 Res ults for this SEND TO LAB ([facility]) AM EDT proce dure are in the results section. MAGNESIUM Routine 09/08/2018 5:15 Results for this AM EDT procedure are i n the results section. XR ABDOMEN 1 VIEW STAT 09/07/2018 8:49 Results for this PM EDT procedure are i n the results section. SCAN, PERIPHERAL BLOOD Routine 09/07/2018 8:35 Re sults for this PM EDT procedure are i n the results section. HEMOGRAM Routine 09/07/2018 8:35 Results for this PM EDT procedure are i n the results section. DIFFERENTIAL, Routine 09/07/2018 8:35 Results for this AUTOMATED PM EDT procedure are i n the results section. LACTATE, WHOLE BLOOD, Routine 09/07/2018 8:35 Res ults for this SEND TO LAB ([facility]) PM EDT proce dure are in the results section. CBC (WITH DIFF) Routine 09/07/2018 8:35 PM EDT BASIC METABOLIC PANEL Routine 09/07/2018 8:35 Res ults for this (NON-FASTING) PM EDT procedure are in the results section. POCT GLUCOSE Routine 09/07/2018 7:59 Results for this PM EDT procedure are i n the results section. PREPARE RBC STAT 09/07/2018 3:55 Results for this PM EDT procedure are i n the results section. BLOOD GAS 2 ARTERIAL Routine 09/07/2018 3:49 Resu lts for this PM EDT procedure are i n the results section. @BYPASS GRAFT, 09/07/2018 3:00 bilateral renal AORTOILIAC W\ VEIN PM EDT artery stenosis CONDUIT (WRVU 41.88) BYPASS GRAFT, Routine 09/07/2018 1:22 AORTOILIAC W\ VEIN PM EDT CONDUIT ABORH RECHECK STATUS STAT 09/07/2018 7:46 Resu lts for this AM EDT procedure are i n the results section. ABO/RH TYPING STAT 09/07/2018 7:46 Results for this AM EDT procedure are i n the results section. ANTIBODY SCREEN STAT 09/07/2018 7:46 Results f or this AM EDT procedure are i n the results section. TYPE AND SCREEN STAT 09/07/2018 7:46 ([facility]) AM EDT BMP W/FASTING GLUCOSE Routine 09/07/2018 12:30 Re sults for this AM EDT procedure are i n the results section. HEMOGRAM Routine 09/07/2018 12:30 Results for this AM EDT procedure are i n the results section. DIFFERENTIAL, Routine 09/07/2018 12:30 Results fo r this AUTOMATED AM EDT procedure are i n the results section. CBC (WITH DIFF) Routine 09/07/2018 12:30 AM EDT MAGNESIUM Routine 09/07/2018 12:30 Results for this AM EDT procedure are i n the results section. GOLD TUBE HOLD STAT 09/06/2018 5:10 Results fo r this PM EDT procedure are i n the results section. POTASSIUM Routine 09/06/2018 5:10 Results for this PM EDT procedure are i n the results section. XR CHEST ONE VIEW STAT 09/06/2018 3:55 Results for this PM EDT procedure are i n the results section. NM RENAL SCAN ANATOMIC Routine 09/06/2018 1:56 Re sults for this PM EDT procedure are i n the results section. VEIN MAP LEG, UNILAT Routine 09/06/2018 11:09 Res ults for this AM EDT procedure are i n the results section. BMP W/FASTING GLUCOSE Routine 09/06/2018 8:55 Res ults for this AM EDT procedure are i n the results section. BMP W/FASTING GLUCOSE Routine 09/06/2018 6:00 Res ults for this AM EDT procedure are i n the results section. HEMOGRAM Routine 09/06/2018 6:00 Results for this AM EDT procedure are i n the results section. DIFFERENTIAL, Routine 09/06/2018 6:00 Results for this AUTOMATED AM EDT procedure are i n the results section. CBC (WITH DIFF) Routine 09/06/2018 6:00 AM EDT MAGNESIUM Routine 09/06/2018 6:00 Results for this AM EDT procedure are i n the results section. POTASSIUM Routine 09/05/2018 2:54 Results for this AM EDT procedure are i n the results section. BMP W/FASTING GLUCOSE Routine 09/05/2018 1:50 Res ults for this AM EDT procedure are i n the results section. HEMOGRAM Routine 09/05/2018 1:50 Results for this AM EDT procedure are i n the results section. DIFFERENTIAL, Routine 09/05/2018 1:50 Results for this AUTOMATED AM EDT procedure are i n the results section. CBC (WITH DIFF) Routine 09/05/2018 1:50 AM EDT MAGNESIUM Routine 09/05/2018 1:50 Results for this AM EDT procedure are i n the results section. BMP W/FASTING GLUCOSE Routine 09/04/2018 1:20 Res ults for this PM EDT procedure are i n the results section. BMP W/FASTING GLUCOSE Routine 09/04/2018 2:25 Res ults for this AM EDT procedure are i n the results section. HEMOGRAM Routine 09/04/2018 2:25 Results for this AM EDT procedure are i n the results section. DIFFERENTIAL, Routine 09/04/2018 2:25 Results for this AUTOMATED AM EDT procedure are i n the results section. CBC (WITH DIFF) Routine 09/04/2018 2:25 AM EDT MAGNESIUM Routine 09/04/2018 2:25 Results for this AM EDT procedure are i n the results section. BMP W/FASTING GLUCOSE Routine 09/03/2018 7:57 Res ults for this PM EDT procedure are i n the results section. MAGNESIUM Routine 09/03/2018 7:57 Results for this PM EDT procedure are i n the results section. RENIN ACTIVITY Routine 09/03/2018 6:10 Results fo r this PM EDT procedure are i n the results section. TROPONIN STAT 09/03/2018 6:55 Results for this AM EDT procedure are i n the results section. BASIC METABOLIC PANEL Routine 09/03/2018 6:55 Res ults for this (NON-FASTING) AM EDT procedure are in the results section. BLOOD GAS 2 VENOUS Routine 09/03/2018 5:24 Result s for this AM EDT procedure are i n the results section. EKG 12-LEAD STAT 09/03/2018 3:21 Abnormal EKG Results for this AM EDT procedure are i n the results section. TROPONIN STAT 09/03/2018 3:15 Results for this AM EDT procedure are i n the results section. XR CHEST ONE VIEW STAT 09/03/2018 2:45 Results for this AM EDT procedure are i n the results section. PHOSPHORUS Routine 09/03/2018 12:35 Results for this AM EDT procedure are i n the results section. MAGNESIUM Routine 09/03/2018 12:35 Results for this AM EDT procedure are i n the results section. BASIC METABOLIC PANEL Routine 09/03/2018 12:35 Re sults for this (NON-FASTING) AM EDT procedure are in the results section. HEMOGRAM Routine 09/02/2018 2:07 Results for this PM EDT procedure are i n the results section. DIFFERENTIAL, Routine 09/02/2018 2:07 Results for this AUTOMATED PM EDT procedure are i n the results section. CBC (WITH DIFF) Routine 09/02/2018 2:07 PM EDT PHOSPHORUS Routine 09/02/2018 3:29 Results for this AM EDT procedure are i n the results section. MAGNESIUM Routine 09/02/2018 3:29 Results for this AM EDT procedure are i n the results section. BASIC METABOLIC PANEL Routine 09/02/2018 3:29 Res ults for this (NON-FASTING) AM EDT procedure are in the results section. EKG 12-LEAD STAT 09/02/2018 12:58 Abnormal EKG Results for this AM EDT procedure are i n the results section. XR CHEST ONE VIEW STAT 09/01/2018 6:06 Results for this PM EDT procedure are i n the results section. IR OR VASC ANGIOGRAM Routine 09/01/2018 4:35 Resu lts for this IMAGE STORAGE ONLY PM EDT procedure are in the results section. [facility] PL[facility] 09/01/2018 3:11 B renal stenosis (FIRST-ORDER), MAIN PM EDT RENAL ART & ANY ACC, W/S&I; ANDREY (WRVU 6.99) [facility] Routine 09/01/2018 11:11 (FIRST-ORDER), MAIN AM EDT RENAL ART & ANY ACC, W/S&I; ANDREY HEMOGRAM Routine 09/01/2018 12:20 Results for this AM EDT procedure are i n the results section. MAGNESIUM Routine 09/01/2018 12:20 Results for this AM EDT procedure are i n the results section. BASIC METABOLIC PANEL Routine 09/01/2018 12:20 Re sults for this (NON-FASTING) AM EDT procedure are in the results section. HEMOGRAM Routine 08/31/2018 12:15 Results for this AM EDT procedure are i n the results section. PHOSPHORUS Routine 08/31/2018 12:15 Results for this AM EDT procedure are i n the results section. MAGNESIUM Routine 08/31/2018 12:15 Results for this AM EDT procedure are i n the results section. BASIC METABOLIC PANEL Routine 08/31/2018 12:15 Re sults for this (NON-FASTING) AM EDT procedure are in the results section. RENAL DUPLEX COMPLETE Routine 08/30/2018 7:39 Renal artery Res ults for this PM EDT stenosis procedure are i n the results section. ECHOCARDIOGRAM Routine 08/30/2018 11:27 Acute heart failure Re sults for this COMPLETE AM EDT with reduced procedure are i n ejection fraction the result s and diastolic section. dysfunction MAGNESIUM Routine 08/30/2018 8:00 Results for this AM EDT procedure are i n the results section. BASIC METABOLIC PANEL Routine 08/30/2018 8:00 Res ults for this (NON-FASTING) AM EDT procedure are in the results section. EKG 12-LEAD STAT 08/29/2018 9:01 Hypertensive urgency Resu lts for this PM EDT procedure are i n the results section. HEMOGRAM Routine 08/29/2018 8:43 Results for this PM EDT procedure are i n the results section. DIFFERENTIAL, Routine 08/29/2018 8:43 Results for this AUTOMATED PM EDT procedure are i n the results section. PROTHROMBIN TIME Routine 08/29/2018 8:43 Results for this PM EDT procedure are i n the results section. CBC (WITH DIFF) Routine 08/29/2018 8:43 PM EDT TROPONIN Routine 08/29/2018 8:43 Results for this PM EDT procedure are i n the results section. MAGNESIUM Routine 08/29/2018 8:43 Results for this PM EDT procedure are i n the results section. CK Routine 08/29/2018 8:43 Results for this PM EDT procedure are i n the results section. BASIC METABOLIC PANEL Routine 08/29/2018 8:43 Res ults for this (NON-FASTING) PM EDT procedure are in the results section. POCT GLUCOSE Routine 08/29/2018 6:31 Results for this PM EDT procedure are i n the results section. documented in this encounter Results (ABNORMAL) Differential, Automated (09/14/2018 5:16 AM EDT) [facility] gist Method Time Signature Neutrophils % 66.9 % [facility] Neutr Abs (ANC) 7.10 (H) 1.70 - [facility] 6.10 [facility] x10(3)/[facility] LABORATORY Lymphocytes % 11.7 % [facility] Lymphocytes Abs 1.2 0.9 - 3.2 [facility] x10(3)/[facility] LABORATORY Monocytes % 10.5 % [facility] Monocyte Abs 1.1 (H) 0.3 - 0.9 [facility] x10(3)/[facility] LABORATORY Eosinophils % 8.7 % [facility] Eosinophils Abs 0.9 (H) 0.0 - 0.4 [facility] x10(3)/[facility] LABORATORY Basophils % 0.9 % [facility] Basophils Abs 0.1 0.0 - 0.1 [facility] x10(3)/[facility] LABORATORY Immature Gran % 1.30 % [facility] Comment: Immature granulocytes(IG's)percentage an d absolute count will include metamyelocytes, myelocytes, and promyelo cytes. Blood smears from CBCs yielding IG's will be scanned manually for concor dance. If this scan disagrees with the automated IG or if promyelocytes are not ed, a manual differential will be performed. Blanca Gran Abs 0.14 (H) 0.00 - 0.04 x10(3)/[facility] LABORATORY Specimen Anatomical Collection Method Collection Time Receive d Time (Source) Location / / Volume Laterality Blood specimen 09/14/2018 5:16 AM 019 5:24 (specimen) EDT AM EDT Resulting Agency Comment Spec In Lab Thom Velasquez MD HEMATOLOGY ORDERABLES Performing Organization Address City/State/[place] [address] (ABNORMAL) Hemogram (09/14/2018 5:16 AM EDT) Analysis Performed At Patho logist Time Signature WBC 10.6 (H) 4.0 - 9.5 [facility] x10(3)/[facility] LABORATORY RBC 3.98 (L) 4.00 - [facility] 5.21 [facility] x10(6)/[facility] LABORATORY Hemoglobin 11.9 11.7 - [facility] 15.[facility] gm/dL [facility] Hematocrit 35.6 (L) 35.7 - [facility] 45.8 % [facility] MCV 89.4 82.6 - [facility] 94.4 [facility] LABORATORY MCH 29.9 27.1 - [facility] 32.0 pg [facility] MCHC 33.4 31.7 - [facility] 35.0 gm/dL [facility] Platelets 266 145 - 357 [facility] x10(3)/[facility] LABORATORY RDWSD 44.4 37.0 - [facility] 46.0 [facility] LABORATORY RDWCV 13.6 11.5 - [facility] 14.1 % [facility] MPV 11.0 7.6 - 12.9 [facility] LABORATORY nRBC % Auto 0.0 % [facility] nRBC Abs Auto 0.000 0.000 - ZAKIA ZHANG 0.000 [facility] x10(3)/[facility] LABORATORY Specimen Anatomical Collection Method Collection Time Receive d Time (Source) Location / / Volume Laterality Blood specimen 09/14/2018 5:16 AM 019 5:24 (specimen) EDT AM EDT Resulting Agency Comment Spec In Lab Thom Velasquez MD HEMATOLOGY ORDERABLES Performing Organization Address City/State/ZIP Code Phon e Number [address] (ABNORMAL) Magnesium (09/14/2018 5:16 AM EDT) P athologist Signature Magnesium 0.63 (L) 0.69 - 1.07 [facility] mmol/L [facility] Specimen Anatomical Collection Method Collection Time Receive d Time (Source) Location / / Volume Laterality Blood specimen 09/14/2018 5:16 AM 019 5:23 (specimen) EDT AM EDT Resulting Agency Comment Spec In Lab Unique Moody MD CHEMISTRY ORDERABLES Performing Organization Address City/State/[place] [address] (ABNORMAL) BMP w/fasting Glucose (09/14/2018 5:16 AM EDT) P athologist Signature Glucose 109 (H) 65 - 99 [facility] mg/dL [facility] Comment: ?Fasting* Glucose Interpretive C [...] of Diabetes Mellitus, Position Statement from the [employer]. ??Diabete s Care, Volume 33, Supplement 1, Apr 2009 BUN 16 8 - 18 mg/dL [facility] Creatinine 1.64 (H) 0.70 - 1.20 mg/dL [facility] Sodium 137 135 - 145 mmol/L [facility] Potassium 4.1 3.5 - 5.0 mmol/L [facility] Comment: Please note: ??Patients with WBC >100,00 0 may have falsely elevated Potassium levels. ??For accurate Potassium quantif ication in these patients send serum separator tube (gold top) for subsequent determinations. ??Contact the Clinical Chemistry Laboratory if there are any qu estions. Chloride 106 98 - 107 mmol/L [facility] CO2 17 (L) 22 - 31 mmol/L [facility] Anion Gap 14 5 - 15 mmol/L [facility] Calcium 8.8 8.5 - 10.5 mg/dL [facility] Estimated GFR 32 (L) >=60 mL/min/1.73 m?? [facility] Comment: The eGFR was calculated using the CKD-EP I equation. As with all creatinine based estimates of kidney function, eGFR values calculated with the CKD-EPI equation are not accurate in patients wi th acute kidney failure, extremes of body mass or the acutely ill. [email or web address] eGFR 37 (L) >=60 mL/min/1.73 m?? [facility] Comment: The eGFR was calculated using the CKD-EP I equation. As with all creatinine based estimates of kidney function, eGFR values calculated with the CKD-EPI equation are not accurate in patients wi th acute kidney failure, extremes of body mass or the acutely ill. [email or web address] Specimen Anatomical Collection Method Collection Time Receive d Time (Source) Location / / Volume Laterality Blood specimen 09/14/2018 5:16 AM 019 5:23 (specimen) EDT AM EDT Resulting Agency Comment Spec In Lab Unique Moody MD CHEMISTRY ORDERABLES Performing Organization Address City/State/[place] [address] (ABNORMAL) Differential, Automated (09/13/2018 5:50 AM EDT) [facility] Method Time Signature Neutrophils % 62.6 % [facility] Neutr Abs (ANC) 5.06 1.70 - [facility] 6.10 [facility] x10(3)/[facility] LABORATORY Lymphocytes % 16.1 % [facility] Lymphocytes Abs 1.3 0.9 - 3.2 [facility] x10(3)/[facility] LABORATORY Monocytes % 10.9 % [facility] Monocyte Abs 0.9 0.3 - 0.9 [facility] x10(3)/[facility] LABORATORY Eosinophils % 7.4 % [facility] Eosinophils Abs 0.6 (H) 0.0 - 0.4 [facility] x10(3)/[facility] LABORATORY Basophils % 1.0 % [facility] Basophils Abs 0.1 0.0 - 0.1 [facility] x10(3)/[facility] LABORATORY Immature Gran % 2.00 % [facility] Comment: Immature granulocytes(IG's)percentage an d absolute count will include metamyelocytes, myelocytes, and promyelo cytes. Blood smears from CBCs yielding IG's will be scanned manually for concor dance. If this scan disagrees with the automated IG or if promyelocytes are not ed, a manual differential will be performed. Blanca Gran Abs 0.16 (H) 0.00 - 0.04 x10(3)/[facility] LABORATORY Specimen Anatomical Collection Method Collection Time Receive d Time (Source) Location / / Volume Laterality Blood specimen 09/13/2018 5:50 AM 019 6:09 (specimen) EDT AM EDT Resulting Agency Comment Spec In Lab Thom Velasquez MD HEMATOLOGY ORDERABLES Performing Organization Address City/State/[place] [address] [facility]ORATORY Drive (ABNORMAL) Hemogram (09/13/2018 5:50 AM EDT) Analysis Performed At Patho logist Time Signature WBC 8.1 4.0 - 9.5 [facility] x10(3)/[facility] LABORATORY RBC 3.26 (L) 4.00 - [facility] 5[facility]21 [facility] x10(6)/[facility] LABORATORY Hemoglobin 10.1 (L) 11.7 - [facility] 15.5 gm/dL [facility] Hematocrit 29.8 (L) 35.7 - [facility] 45.8 % [facility] MCV 91.4 82.6 - [facility] 94.4 [facility] LABORATORY MCH 31.0 27.1 - [facility] 32.0 pg [facility] MCHC 33.9 31.7 - [facility] 35.0 gm/dL [facility] Platelets 237 145 - 357 [facility] x10(3)/[facility] LABORATORY RDWSD 44.6 37.0 - [facility] 46.0 [facility] LABORATORY RDWCV 13.3 11.5 - [facility] 14.1 % [facility] MPV 11.3 7.6 - 12.9 [facility] LABORATORY nRBC % Auto 0.0 % [facility] nRBC Abs Auto 0.000 0.000 - [facility] 0.000 [facility] x10(3)/[facility] LABORATORY Specimen Anatomical Collection Method Collection Time Receive d Time (Source) Location / / Volume Laterality Blood specimen 09/13/2018 5:50 AM 019 6:09 (specimen) EDT AM EDT Resulting Agency Comment Spec In Lab Thom Velasquez MD HEMATOLOGY ORDERABLES Performing Organization Address City/State/[place] [address] (ABNORMAL) Magnesium (09/13/2018 5:50 AM EDT) P athologist Signature Magnesium 0.65 (L) 0.69 - 1.07 [facility] mmol/L [facility] Specimen Anatomical Collection Method Collection Time Receive d Time (Source) Location / / Volume Laterality Blood specimen 09/13/2018 5:50 AM 019 6:09 (specimen) EDT AM EDT Resulting Agency Comment Spec In Lab Unique Moody MD CHEMISTRY ORDERABLES Performing Organization Address City/State/[place] [address] (ABNORMAL) BMP w/fasting Glucose (09/13/2018 5:50 AM EDT) P athologist Signature Glucose 160 (H) 65 - 99 [facility] Fasting mg/dL [facility] Comment: ?Fasting* Glucose Interpretive C [...] of Diabetes Mellitus, Position Statement from the [employer]. ??Diabete s Care, Volume 33, Supplement 1, Apr 2009 BUN 21 (H) 8 - 18 mg/dL [facility] Creatinine 1.73 (H) 0.70 - 1.20 mg/dL [facility] Sodium 139 135 - 145 mmol/L [facility] Potassium 3.3 (L) 3.5 - 5.0 mmol/L [facility] Comment: Please note: ??Patients with WBC >100,00 0 may have falsely elevated Potassium levels. ??For accurate Potassium quantif ication in these patients send serum separator tube (gold top) for subsequent determinations. ??Contact the Clinical Chemistry Laboratory if there are any qu estions. Chloride 105 98 - 107 mmol/L [facility] CO2 20 (L) 22 - 31 mmol/L [facility] Anion Gap 14 5 - 15 mmol/L [facility] Calcium 8.3 (L) 8.5 - 10.5 mg/dL [facility] Estimated GFR 30 (L) >=60 mL/min/1.73 m?? [facility] Comment: The eGFR was calculated using the CKD-EP I equation. As with all creatinine based estimates of kidney function, eGFR values calculated with the CKD-EPI equation are not accurate in patients wi th acute kidney failure, extremes of body mass or the acutely ill. [email or web address] eGFR 34 (L) >=60 mL/min/1.73 m?? [facility] Comment: The eGFR was calculated using the CKD-EP I equation. As with all creatinine based estimates of kidney function, eGFR values calculated with the CKD-EPI equation are not accurate in patients wi th acute kidney failure, extremes of body mass or the acutely ill. [email or web address] Specimen Anatomical Collection Method Collection Time Receive d Time (Source) Location / / Volume Laterality Blood specimen 09/13/2018 5:50 AM 019 6:09 (specimen) EDT AM EDT Resulting Agency Comment Spec In Lab Unique Moody MD CHEMISTRY ORDERABLES Performing Organization Address City/State/[place] [address] Potassium (09/12/2018 8:00 AM EDT) P athologist Signature Potassium 4.2 3.5 - 5.0 [facility] mmol/L [facility] Comment: Please note: ??Patients with WBC >100,00 0 may have falsely elevated Potassium levels. ??For accurate Potassium quantif ication in these patients send serum separator tube (gold top) for subsequent determinations. ??Contact the Clinical Chemistry Laboratory if there are any qu estions. Specimen Anatomical Collection Method Collection Time Receive d Time (Source) Location / / Volume Laterality Blood specimen 09/12/2018 8:00 AM 019 8:05 (specimen) EDT AM EDT Resulting Agency Comment Spec In Lab Unique Moody MD CHEMISTRY ORDERABLES Performing Organization Address City/State/ZIP Code Phon e Number [place] (ABNORMAL) Differential, Automated (09/12/2018 1:10 AM EDT) [facility] Signature Neutrophils % 65.0 % [facility] Neutr Abs (ANC) 5.74 1.70 - [facility] 6.10 [facility] x10(3)/[facility] LABORATORY Lymphocytes % 16.5 % [facility] Lymphocytes Abs 1.5 0.9 - 3.2 [facility] x10(3)/[facility] LABORATORY Monocytes % 10.0 % [facility] Monocyte Abs 0.9 0.3 - 0.9 [facility] x10(3)/[facility] LABORATORY Eosinophils % 6.2 % [facility] Eosinophils Abs 0.6 (H) 0.0 - 0.4 [facility] x10(3)/[facility] LABORATORY Basophils % 0.9 % [facility] Basophils Abs 0.1 0.0 - 0.1 [facility] x10(3)/[facility] LABORATORY Immature Gran % 1.40 % [facility] Comment: Immature granulocytes(IG's)percentage an d absolute count will include metamyelocytes, myelocytes, and promyelo cytes. Blood smears from CBCs yielding IG's will be scanned manually for concor dance. If this scan disagrees with the automated IG or if promyelocytes are not ed, a manual differential will be performed. Blanca Gran Abs 0.12 (H) 0.00 - 0.04 x10(3)/[facility] LABORATORY Specimen Anatomical Collection Method Collection Time Receive d Time (Source) Location / / Volume Laterality Blood specimen 09/12/2018 1:10 AM 019 1:14 (specimen) EDT AM EDT Resulting Agency Comment Spec In Lab Thom Velasquez MD HEMATOLOGY ORDERABLES Performing Organization Address City/State/ZIP Code Phon e Number [place] [id number] [facility] LABORATORY Drive (ABNORMAL) Hemogram (09/12/2018 1:10 AM EDT) Analysis Performed At [facility] logist Time Signature WBC 8.8 4.0 - 9.5 [facility] x10(3)/[facility] LABORATORY RBC 3.23 (L) 4.00 - [facility] 5.21 [facility] x10(6)/[facility] LABORATORY Hemoglobin 9.7 (L) 11.7 - [facility] 15.[facility] gm/dL [facility] Hematocrit 29.3 (L) 35.7 - [facility] 45.8 % [facility] MCV 90.7 82.6 - [facility] 94.4 [facility] LABORATORY MCH 30.0 27.1 - [facility] 32.0 pg [facility] MCHC 33.1 31.7 - [facility] 35.0 gm/dL [facility] Platelets 228 145 - 357 [facility] x10(3)/[facility] LABORATORY RDWSD 46.8 (H) 37.0 - [facility] 46.0 [facility] LABORATORY RDWCV 13.8 11.5 - [facility] 14.1 % [facility] MPV 11.2 7.6 - 12.9 [facility] LABORATORY nRBC % Auto 0.0 % [facility] nRBC Abs Auto 0.000 0.000 - [facility] 0.000 [facility] x10(3)/[facility] LABORATORY Specimen Anatomical Collection Method Collection Time Receive d Time (Source) Location / / Volume Laterality Blood specimen 09/12/2018 1:10 AM 019 1:14 (specimen) EDT AM EDT Resulting Agency Comment Spec In Lab Thom Velasquez MD HEMATOLOGY ORDERABLES Performing Organization Address City/State/[place] [address] (ABNORMAL) Magnesium (09/12/2018 1:10 AM EDT) P athologist Signature Magnesium 0.68 (L) 0.69 - 1.07 [facility] mmol/L [facility] Specimen Anatomical Collection Method Collection Time Receive d Time (Source) Location / / Volume Laterality Blood specimen 09/12/2018 1:10 AM 019 1:14 (specimen) EDT AM EDT Resulting Agency Comment Spec In Lab Unique Moody MD CHEMISTRY ORDERABLES Performing Organization Address City/State/[place] [address] (ABNORMAL) BMP w/fasting Glucose (09/12/2018 1:10 AM EDT) P athologist Signature Glucose 145 (H) 65 - 99 [facility] Fasting mg/dL [facility] Comment: ?Fasting* Glucose Interpretive C [...] of Diabetes Mellitus, Position Statement from the [employer]. ??Diabete s Care, Volume 33, Supplement 1, Apr 2009 BUN 25 (H) 8 - 18 mg/dL [facility] Creatinine 1.59 (H) 0.70 - 1.20 mg/dL [facility] Sodium 139 135 - 145 mmol/L [facility] Potassium 3.6 3.5 - 5.0 mmol/L [facility] Comment: Please note: ??Patients with WBC >100,00 0 may have falsely elevated Potassium levels. ??For accurate Potassium quantif ication in these patients send serum separator tube (gold top) for subsequent determinations. ??Contact the Clinical Chemistry Laboratory if there are any qu estions. Chloride 105 98 - 107 mmol/L [facility] CO2 22 22 - 31 mmol/L [facility] Anion Gap 12 5 - 15 mmol/L [facility] Calcium 8.4 (L) 8.5 - 10.5 mg/dL [facility] Estimated GFR 33 (L) >=60 mL/min/1.73 m?? [facility] Comment: The eGFR was calculated using the CKD-EP I equation. As with all creatinine based estimates of kidney function, eGFR values calculated with the CKD-EPI equation are not accurate in patients wi th acute kidney failure, extremes of body mass or the acutely ill. [email or web address]://[email or web address]kf eGFR 38 (L) >=60 mL/min/1.73 m?? [facility] Comment: The eGFR was calculated using the CKD-EP I equation. As with all creatinine based estimates of kidney function, eGFR values calculated with the CKD-EPI equation are not accurate in patients wi th acute kidney failure, extremes of body mass or the acutely ill. [email or web address] Specimen Anatomical Collection Method Collection Time Receive d Time (Source) Location / / Volume Laterality Blood specimen 09/12/2018 1:10 AM 019 1:14 (specimen) EDT AM EDT Resulting Agency Comment Spec In Lab Unique Moody MD CHEMISTRY ORDERABLES Performing Organization Address City/[facility]/[place] [address] Potassium (09/11/2018 6:20 PM EDT) athologist Signature Potassium 3.5 3.5 - 5.0 [facility] mmol/L [facility] Comment: Please note: ??Patients with WBC >100,00 0 may have falsely elevated Potassium levels. ??For accurate Potassium quantif ication in these patients send serum separator tube (gold top) for subsequent determinations. ??Contact the Clinical Chemistry Laboratory if there are any qu estions. Specimen Anatomical Collection Method Collection Time Receive d Time (Source) Location / / Volume Laterality Blood specimen 09/11/2018 6:20 PM 019 6:22 (specimen) EDT PM EDT Resulting Agency Comment Spec In Lab Unique Moody MD CHEMISTRY ORDERABLES Performing Organization Address City/[facility]/ZIP Code Phon e Number [address] (ABNORMAL) Differential, Automated (09/11/2018 7:30 AM EDT) [facility] gist Method Time Signature Neutrophils % 69.1 % [facility] Neutr Abs (ANC) 8.12 (H) 1.70 - [facility] 6.10 [facility] x10(3)/[facility] LABORATORY Lymphocytes % 13.9 % [facility] Lymphocytes Abs 1.6 0.9 - 3.2 [facility] x10(3)/[facility] LABORATORY Monocytes % 10.8 % [facility] Monocyte Abs 1.3 (H) 0.3 - 0.9 [facility] x10(3)/[facility] LABORATORY Eosinophils % 3.3 % [facility] Eosinophils Abs 0.4 0.0 - 0.4 [facility] x10(3)/[facility] LABORATORY Basophils % 0.9 % [facility] Basophils Abs 0.1 0.0 - 0.1 [facility] x10(3)/[facility] LABORATORY Immature Gran % 2.00 % [facility] Comment: Immature granulocytes(IG's)percentage an d absolute count will include metamyelocytes, myelocytes, and promyelo cytes. Blood smears from CBCs yielding IG's will be scanned manually for concor dance. If this scan disagrees with the automated IG or if promyelocytes are not ed, a manual differential will be performed. Blanca Gran Abs 0.23 (H) 0.00 - 0.04 x10(3)/[facility] LABORATORY Specimen Anatomical Collection Method Collection Time Receive d Time (Source) Location / / Volume Laterality Blood specimen 09/11/2018 7:30 AM 019 7:43 (specimen) EDT AM EDT Resulting Agency Comment Spec In Lab Thom Velasquez MD HEMATOLOGY ORDERABLES Performing Organization Address City/State/[place] [address] (ABNORMAL) Hemogram (09/11/2018 7:30 AM EDT) Analysis Performed At Patho logist Time Signature WBC 11.8 (H) 4.0 - 9.5 [facility] x10(3)/[facility] LABORATORY RBC 3.38 (L) 4.00 - [facility] 5.21 [facility] x10(6)/[facility] LABORATORY Hemoglobin 10.3 (L) 11.7 - [facility] 15.5 gm/dL [facility] Hematocrit 31.3 (L) 35.7 - [facility] 45.8 % [facility] MCV 92.6 82.6 - [facility] 94.4 [facility] LABORATORY MCH 30.5 27.1 - [facility] 32.0 pg [facility] MCHC 32.9 31.7 - [facility] 35.0 gm/dL [facility] Platelets 231 145 - 357 [facility] x10(3)/[facility] LABORATORY RDWSD 47.8 (H) 37.0 - [facility] 46.0 [facility] LABORATORY RDWCV 14.3 (H) 11.5 - [facility] 14.1 % [facility] MPV 11.0 7.6 - 12.9 [facility] LABORATORY nRBC % Auto 0.0 % [facility] nRBC Abs Auto 0.000 0.000 - [facility] 0.000 [facility] x10(3)/[facility] LABORATORY Specimen Anatomical Collection Method Collection Time Receive d Time (Source) Location / / Volume Laterality Blood specimen 09/11/2018 7:30 AM 019 7:43 (specimen) EDT AM EDT Resulting Agency Comment Spec In Lab Thom Velasquez MD HEMATOLOGY ORDERABLES Performing Organization Address City/State/[place] [address] Magnesium (09/11/2018 7:30 AM EDT) P athologist Signature Magnesium 0.83 0.69 - 1.07 [facility] mmol/L [facility] Specimen Anatomical Collection Method Collection Time Receive d Time (Source) Location / / Volume Laterality Blood specimen 09/11/2018 7:30 AM 019 7:43 (specimen) EDT AM EDT Resulting Agency Comment Spec In Lab Unique Moody MD CHEMISTRY ORDERABLES Performing Organization Address City/State/[place] [address] (ABNORMAL) BMP w/fasting Glucose (09/11/2018 7:30 AM EDT) athologist Signature Glucose 127 (H) 65 - 99 [facility] Fasting mg/dL [facility] Comment: ?Fasting* Glucose Interpretive C [...] of Diabetes Mellitus, Position Statement from the [place] [employer]. ??Diabete s Care, Volume 33, Supplement 1, Apr 2009 BUN 32 (H) 8 - 18 mg/dL [facility] Creatinine 1.61 (H) 0.70 - 1.20 mg/dL [facility] Sodium 141 135 - 145 mmol/L [facility] Potassium 3.1 (L) 3.5 - 5.0 mmol/L [facility] Comment: Please note: ??Patients with WBC >100,00 0 may have falsely elevated Potassium levels. ??For accurate Potassium quantif ication in these patients send serum separator tube (gold top) for subsequent determinations. ??Contact the Clinical Chemistry Laboratory if there are any qu estions. Chloride 106 98 - 107 mmol/L [facility] CO2 22 22 - 31 mmol/L [facility] Anion Gap 13 5 - 15 mmol/L [facility] Calcium 8.4 (L) 8.5 - 10.5 mg/dL [facility] Estimated GFR 32 (L) >=60 mL/min/1.73 m?? [facility] Comment: The eGFR was calculated using the CKD-EP I equation. As with all creatinine based estimates of kidney function, eGFR values calculated with the CKD-EPI equation are not accurate in patients wi th acute kidney failure, extremes of body mass or the acutely ill. [email or web address]://[email or web address] eGFR 37 (L) >=60 mL/min/1.73 m?? [facility] Comment: The eGFR was calculated using the CKD-EP I equation. As with all creatinine based estimates of kidney function, eGFR values calculated with the CKD-EPI equation are not accurate in patients wi th acute kidney failure, extremes of body mass or the acutely ill. [email or web address]kf Specimen Anatomical Collection Method Collection Time Receive d Time (Source) Location / / Volume Laterality Blood specimen 09/11/2018 7:30 AM 019 7:43 (specimen) EDT AM EDT Resulting Agency Comment Spec In Lab Unique Moody MD CHEMISTRY ORDERABLES Performing Organization Address City/State/[place] [address] Unilat Bypass Graft Assess (09/10/2018 8:30 AM EDT) Component Value Ref Test Analysis Performed At [facility] Range Method Time Signature VB Text Department: Vascular Surgery Lab VASCUBASE Report Patient: [id number] (PRETTY HARMON) CPT: 50274 ICD10: I70.1 Referring Physician: UNIQUE MOODY ?? 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 pat renoy ICD10 Diagnosis Code: I70.1 Findings: Interpretation: RIGHT: Exam limited by overlying bowel gas. Bypass not vis ualized. However, there are normal Doppler waveforms in the kidney and distal renal artery. Comparison: ??No previous study in our vascular lab da tabase for comparison. Electronically Signed by: KYA YOO MD on 2018-09-10 03: 51:17 PM VB Text End of Report VASCUBASE Report Specimen (Source) Anatomical Collection Method Collection Time Re ceived Time Location / / Volume Laterality 09/10/2018 8:30 AM EDT Unique Moody MD VASCULAR ORDERABLES Performing Organization Address City/[facility]/ZIP Code Phon e Number [email or web address] Urinalysis Microscopic Exam (09/10/2018 7:50 AM EDT) P athologist Signature RBC UA <1 0 - 4 /HPF [facility] WBC UA <1 0 - 5 /HPF [facility] Specimen (Source) Anatomical Collection Method Collection Time Re ceived Time Location / / Volume Laterality Urine specimen 09/10/2018 7:50 09/10/2018 9:15 obtained by clean AM EDT AM EDT catch procedure (specimen) Resulting Agency Comment Spec In Lab Leah Cline MD URINE ORDERABLES Performing Organization Address City/[facility]/ZIP Code Phon e Number [address] Urine Hold (09/10/2018 7:50 AM EDT) P athologist Signature Urine Hold Sample in [facility] LABORATORY Specimen Anatomical Collection Method Collection Time Receive d Time (Source) Location / / Volume Laterality Urine specimen Urine / Unknown 09/10/2018 7:50 AM 08/25 9:15 (specimen) EDT AM EDT Leah Cline MD URINE ORDERABLES Performing Organization Address City/[facility] [place] [address] HOSPITAL LABORATORY Drive (ABNORMAL) Urinalysis with reflex Culture (09/10/2018 7:50 AM EDT) [facility] Method Time Signature Glucose UA Negative Negative [facility] Protein UA 100 (A) Negative [facility] mg/dL [facility] Bilirubin UA Negative Negative [facility] mg/dL [facility] Comment: Clinical correlation required for positi ve Urine Bilirubin results as false positive may occur with some drugs and d rug related products. If a false positive is suspected a serum total bili blandon should be considered if clinically indicated. Urobilinogen UA Normal Normal mg/dL [facility] pH UA 7.0 5.0 - 8.0 [facility] Blood UA Negative Negative mg/dL [facility] Ketones UA 5 (A) Negative mg/dL [facility] Nitrite UA Negative Negative [facility] Leukocytes UA Negative Negative [facility] LABOR[facility]ORY Appearance UA Clear Clear [facility] Spec [place] UA 1.010 1.002 - 1.030 [facility] Color UA Straw Yellow [facility] Culture Reflexed No [facility] Specimen (Source) Anatomical Collection Method Collection Time Re ceived Time Location / / Volume Laterality Urine specimen 09/10/2018 7:50 09/10/2018 9:15 obtained by clean AM EDT AM EDT catch procedure (specimen) Resulting Agency Comment Spec In Lab Unique Moody MD URINE ORDERABLES Performing Organization Address City/State/[place] [address] (ABNORMAL) Differential, Automated (09/10/2018 2:45 AM EDT) [facility] Method Time Signature Neutrophils % 75.4 % [facility] Neutr Abs (ANC) 10.95 (H) 1.70 - [facility] 6.10 [facility] x10(3)/[facility] LABORATORY Lymphocytes % 8.9 % [facility] Lymphocytes Abs 1.3 0.9 - 3.2 [facility] x10(3)/[facility] LABORATORY Monocytes % 12.6 % [facility] Monocyte Abs 1.8 (H) 0.3 - 0.9 [facility] x10(3)/[facility] LABORATORY Eosinophils % 0.3 % [facility] Eosinophils Abs 0.0 0.0 - 0.4 [facility] x10(3)/[facility] LABORATORY Basophils % 0.6 % [facility] Basophils Abs 0.1 0.0 - 0.1 [facility] x10(3)/[facility] LABORATORY Immature Gran % 2.20 % [facility] Comment: Immature granulocytes(IG's)percentage an d absolute count will include metamyelocytes, myelocytes, and promyelo cytes. Blood smears from CBCs yielding IG's will be scanned manually for concor dance. If this scan disagrees with the automated IG or if promyelocytes are not ed, a manual differential will be performed. Blanca Gran Abs 0.32 (H) 0.00 - 0.04 x10(3)/[facility] LABORATORY Specimen Anatomical Collection Method Collection Time Receive d Time (Source) Location / / Volume Laterality Blood specimen 09/10/2018 2:45 AM 019 2:50 (specimen) EDT AM EDT Resulting Agency Comment Spec In Lab Thom Velasquez MD HEMATOLOGY ORDERABLES Performing Organization Address City/State/[place] [address] (ABNORMAL) Hemogram (09/10/2018 2:45 AM EDT) Analysis Performed At Patho logist Time Signature WBC 14.5 (H) 4.0 - 9.5 [facility] x10(3)/[facility] LABORATORY RBC 3.69 (L) 4.00 - [facility] 5.21 [facility] x10(6)/[facility] LABORATORY Hemoglobin 11.2 (L) 11.7 - [facility] 15.5 gm/dL [facility] Hematocrit 33.8 (L) 35.7 - [facility] 45.8 % [facility] MCV 91.6 82.6 - [facility] 94.4 [facility] LABORATORY MCH 30.4 27.1 - [place] 32.0 pg [facility] MCHC 33.1 31.7 - [facility] 35.0 gm/dL [facility] Platelets 244 145 - 357 [facility] x10(3)/[facility] LABORATORY RDWSD 47.9 (H) 37.0 - [facility] 46.0 [facility] RDWCV 14.3 (H) 11.5 - [facility] 14.1 % [facility] MPV 11.4 7.6 - 12.9 [place] fL [facility] nRBC % Auto 0.0 % [facility] nRBC Abs Auto 0.000 0.000 - [facility] 0.000 [facility] x10(3)/[facility] LABORATORY Specimen Anatomical Collection Method Collection Time Receive d Time (Source) Location / / Volume Laterality Blood specimen 09/10/2018 2:45 AM 019 2:50 (specimen) EDT AM EDT Resulting Agency Comment Spec In Lab Thom Velasquez MD HEMATOLOGY ORDERABLES Performing Organization Address City/State/ZIP Code Phon e Number [address] Magnesium (09/10/2018 2:45 AM EDT) P athologist Signature Magnesium 0.90 0.69 - 1.07 [facility] mmol/L [facility] Specimen Anatomical Collection Method Collection Time Receive d Time (Source) Location / / Volume Laterality Blood specimen 09/10/2018 2:45 AM 019 2:50 (specimen) EDT AM EDT Resulting Agency Comment Spec In Lab Unique Moody MD CHEMISTRY ORDERABLES Performing Organization Address City/State/ZIP Code Phon e Number [address] (ABNORMAL) BMP w/fasting Glucose (09/10/2018 2:45 AM EDT) P athologist Signature Glucose 105 (H) 65 - 99 [facility] Fasting mg/dL [facility] Comment: ?Fasting* Glucose Interpretive C [...] of Diabetes Mellitus, Position Statement from the [employer]. ??Diabete s Care, Volume 33, Supplement 1, Apr 2009 BUN 44 (H) 8 - 18 mg/dL [facility] Creatinine 2.22 (H) 0.70 - 1.20 mg/dL [facility] Sodium 145 135 - 145 mmol/L [facility] Potassium 3.6 3.5 - 5.0 mmol/L [facility] Comment: Please note: ??Patients with WBC >100,00 0 may have falsely elevated Potassium levels. ??For accurate Potassium quantif ication in these patients send serum separator tube (gold top) for subsequent determinations. ??Contact the Clinical Chemistry Laboratory if there are any qu estions. Chloride 103 98 - 107 mmol/L [facility] CO2 25 22 - 31 mmol/L [facility] Anion Gap 17 (H) 5 - 15 mmol/L [facility] Calcium 8.8 8.5 - 10.5 mg/dL [facility] Estimated GFR 22 (L) >=60 mL/min/1.73 m?? [facility] Comment: The eGFR was calculated using the CKD-EP I equation. As with all creatinine based estimates of kidney function, eGFR values calculated with the CKD-EPI equation are not accurate in patients wi th acute kidney failure, extremes of body mass or the acutely ill. [email or web address] eGFR 25 (L) >=60 mL/min/1.73 m?? [facility] Comment: The eGFR was calculated using the CKD-EP I equation. As with all creatinine based estimates of kidney function, eGFR values calculated with the CKD-EPI equation are not accurate in patients wi th acute kidney failure, extremes of body mass or the acutely ill. [email or web address] Specimen Anatomical Collection Method Collection Time Receive d Time (Source) Location / / Volume Laterality Blood specimen 09/10/2018 2:45 AM 019 2:50 (specimen) EDT AM EDT Resulting Agency Comment Spec In Lab Unique Moody MD CHEMISTRY ORDERABLES Performing Organization Address City/State/ZIP Code Phon e Number [place] [id number] HOSPITAL LABORATORY Drive (ABNORMAL) Differential, Automated (09/09/2018 2:50 AM EDT) [facility] Method Time Signature Neutrophils % 82.7 % [facility] Neutr Abs (ANC) 15.59 (H) 1.70 - [facility] 6.10 [facility] x10(3)/[facility] LABORATORY Lymphocytes % 6.1 % [facility] Lymphocytes Abs 1.2 0.9 - 3.2 [facility] x10(3)/[facility] LABORATORY Monocytes % 10.1 % [facility] Monocyte Abs 1.9 (H) 0.3 - 0.9 [facility] x10(3)/[facility] LABORATORY Eosinophils % 0.1 % [facility] Eosinophils Abs 0.0 0.0 - 0.4 [facility] x10(3)/[facility] LABORATORY Basophils % 0.3 % [facility] Basophils Abs 0.0 0.0 - 0.1 [facility] x10(3)/[facility] LABORATORY Immature Gran % 0.70 % [facility] Comment: Immature granulocytes(IG's)percentage an d absolute count will include metamyelocytes, myelocytes, and promyelo cytes. Blood smears from CBCs yielding IG's will be scanned manually for concor dance. If this scan disagrees with the automated IG or if promyelocytes are not ed, a manual differential will be performed. Blanca Gran Abs 0.14 (H) 0.00 - 0.04 x10(3)/[facility] LABORATORY Specimen Anatomical Collection Method Collection Time Receive d Time (Source) Location / / Volume Laterality Blood specimen 09/09/2018 2:50 AM 019 2:54 (specimen) EDT AM EDT Resulting Agency Comment Spec In Lab Leah Cline MD HEMATOLOGY ORDERABLES Performing Organization Address City/State/[place] [address] (ABNORMAL) Hemogram (09/09/2018 2:50 AM EDT) Analysis Performed At Patho logist Time Signature WBC 18.8 (H) 4.0 - 9.5 [place] x10(3)/[facility] LABORATORY RBC 3.89 (L) 4.00 - [place] 5.21 [facility] x10(6)/[facility] LABORATORY Hemoglobin 11.9 11.7 - [facility] 15.5 gm/dL [facility] Hematocrit 34.6 (L) 35.7 - [place] 45.8 % [facility] MCV 88.9 82.6 - [facility] 94.4 [facility] LABORATORY MCH 30.6 27.1 - [place] 32.0 pg [facility] MCHC 34.4 31.7 - [place] 35.0 gm/dL [facility] Platelets 223 145 - 357 [facility] x[facility](3[facility] LABORATORY RDWSD 44.3 37.0 - [place] 46.0 [facility] LABORATORY RDWCV 13.8 11.5 - [place] 14.1 % [facility] MPV 11.1 7.6 - 12.9 [facility] nRBC % Auto 0.0 % [facility] nRBC Abs Auto 0.000 0.000 - [place] 0.000 [facility] x10(3)/[facility] LABORATORY Specimen Anatomical Collection Method Collection Time Receive d Time (Source) Location / / Volume Laterality Blood specimen 09/09/2018 2:50 AM 019 2:54 (specimen) EDT AM EDT Resulting Agency Comment Spec In Lab Leah Cline MD HEMATOLOGY ORDERABLES Performing Organization Address City/State/[place] [address] Magnesium (09/09/2018 2:50 AM EDT) P athologist Signature Magnesium 0.94 0.69 - 1.07 [facility] mmol/L [facility] Specimen Anatomical Collection Method Collection Time Receive d Time (Source) Location / / Volume Laterality Blood specimen 09/09/2018 2:50 AM 019 2:54 (specimen) EDT AM EDT Resulting Agency Comment Spec In Lab Unique Moody MD CHEMISTRY ORDERABLES Performing Organization Address City/State/ZIP Code Phon e Number [facility] [place] [address] (ABNORMAL) BMP w/fasting Glucose (09/09/2018 2:50 AM EDT) athologist Signature Glucose 110 (H) 65 - 99 [facility] Fasting mg/dL [facility] Comment: ?Fasting* Glucose Interpretive C [...] of Diabetes Mellitus, Position Statement from the [employer]. ??Diabete s Care, Volume 33, Supplement 1, Apr 2009 BUN 44 (H) 8 - 18 mg/dL [facility] Creatinine 2.42 (H) 0.70 - 1.20 mg/dL [facility] Sodium 140 135 - 145 mmol/L [facility] Potassium 4.3 3.5 - 5.0 mmol/L [facility] Comment: Please note: ??Patients with WBC >100,00 0 may have falsely elevated Potassium levels. ??For accurate Potassium quantif ication in these patients send serum separator tube (gold top) for subsequent determinations. ??Contact the Clinical Chemistry Laboratory if there are any qu estions. Chloride 100 98 - 107 mmol/L [facility] CO2 23 22 - 31 mmol/L [facility] Anion Gap 17 (H) 5 - 15 mmol/L [facility] Calcium 8.6 8.5 - 10.5 mg/dL [facility] Estimated GFR 20 (L) >=60 mL/min/1.73 m?? [facility] Comment: The eGFR was calculated using the CKD-EP I equation. As with all creatinine based estimates of kidney function, eGFR values calculated with the CKD-EPI equation are not accurate in patients wi th acute kidney failure, extremes of body mass or the acutely ill. [email or web address] eGFR 23 (L) >=60 mL/min/1.73 m?? [facility] Comment: The eGFR was calculated using the CKD-EP I equation. As with all creatinine based estimates of kidney function, eGFR values calculated with the CKD-EPI equation are not accurate in patients wi th acute kidney failure, extremes of body mass or the acutely ill. [email or web address] Specimen Anatomical Collection Method Collection Time Receive d Time (Source) Location / / Volume Laterality Blood specimen 09/09/2018 2:50 AM 019 2:54 (specimen) EDT AM EDT Resulting Agency Comment Spec In Lab Unique Moody MD CHEMISTRY ORDERABLES Performing Organization Address City/State/[place] [address] Scan, Peripheral Blood (09/08/2018 3:00 PM EDT) [facility] gist Method Time Signature Plat Estimate Normal [facility] RBC Morphology Abnormal [facility] Ovalocytes 6-10 /HPF [facility] [place] Cells 1-5 /HPF [facility] Specimen Anatomical Collection Method Collection Time Receive d Time (Source) Location / / Volume Laterality Blood specimen 09/08/2018 3:00 PM 019 3:19 (specimen) EDT PM EDT Resulting Agency Comment Spec In Lab Corwin Hawk MD HEMATOLOGY ORDERABLES Performing Organization Address City/State/ZIP Code Phon [place] [facility] [address] (ABNORMAL) Differential, Automated (09/08/2018 3:00 PM EDT) [facility] Method Time Signature Neutrophils % 87.1 % [facility] Neutr Abs (ANC) 18.84 (H) 1.70 - [facility] 6.10 [facility] x10(3)/[facility] LABORATORY Lymphocytes % 3.5 % [facility] Lymphocytes Abs 0.8 (L) 0.9 - 3.2 [facility] x10(3)/[facility] LABORATORY Monocytes % 8.2 % [facility] Monocyte Abs 1.8 (H) 0.3 - 0.9 [facility] x10(3)/[facility] LABORATORY Eosinophils % 0.0 % [facility] Eosinophils Abs 0.0 0.0 - 0.4 [facility] x10(3)/[facility] LABORATORY Basophils % 0.2 % [facility] Basophils Abs 0.0 0.0 - 0.1 [facility] x10(3)/[facility] LABORATORY Immature Gran % 1.00 % [facility] Comment: Immature granulocytes(IG's)percentage an d absolute count will include metamyelocytes, myelocytes, and promyelo cytes. Blood smears from CBCs yielding IG's will be scanned manually for concor dance. If this scan disagrees with the automated IG or if promyelocytes are not ed, a manual differential will be performed. Blanca Gran Abs 0.22 (H) 0.00 - 0.04 x10(3)/[facility] LABORATORY Specimen Anatomical Collection Method Collection Time Receive d Time (Source) Location / / Volume Laterality Blood specimen 09/08/2018 3:00 PM 019 3:19 (specimen) EDT PM EDT Resulting Agency Comment Spec In Lab Corwin Hawk MD HEMATOLOGY ORDERABLES Performing Organization Address City/State/ZIP Code Phon e Number [place] [id number] HOSPITAL LABORATORY Drive (ABNORMAL) Hemogram (09/08/2018 3:00 PM EDT) Analysis Performed At Patho logist Time Signature WBC 21.6 (H) 4.0 - 9.5 [facility] x10(3)/[facility] LABORATORY RBC 3.80 (L) 4.00 - [place] 5.21 [facility] x10(6)/[facility] LABORATORY Hemoglobin 11.5 (L) 11.7 - [facility] 15.5 gm/dL [facility] Hematocrit 33.8 (L) 35.7 - [facility] 45.8 % [facility] MCV 88.9 82.6 - [facility] 94.4 [facility] LABORATORY MCH 30.3 27.1 - [facility] 32.0 pg [facility] MCHC 34.0 31.7 - [facility] 35.0 gm/dL [facility] Platelets 249 145 - 357 [facility] x10(3)/[facility] LABORATORY RDWSD 43.1 37.0 - [facility] 46.0 [facility] LABORATORY RDWCV 13.2 11.5 - [facility] 14.1 % [facility] MPV 11.8 7.6 - 12.9 [facility] LABORATORY nRBC % Auto 0.0 % [facility] nRBC Abs Auto 0.000 0.000 - [facility] 0.000 [facility] x10(3)/[facility] LABORATORY Specimen Anatomical Collection Method Collection Time Receive d Time (Source) Location / / Volume Laterality Blood specimen 09/08/2018 3:00 PM 019 3:19 (specimen) EDT PM EDT Resulting Agency Comment Spec In Lab Corwin Hawk MD HEMATOLOGY ORDERABLES Performing Organization Address City/State/ZIP Code [place] [address] (ABNORMAL) Basic Metabolic Panel (non-fasting) (09/08/2018 3:00 PM EDT) P athologist Signature Glucose Lvl 129 65 - 199 [facility] mg/dL [facility] Comment: Diabetes: >=200 mg/dL plus symp toms BUN 45 (H) 8 - 18 mg/dL [facility] Creatinine 2.67 (H) 0.70 - 1.20 mg/dL [facility] Sodium 137 135 - 145 mmol/L [facility] Potassium 4.3 3.5 - 5.0 mmol/L [facility] Comment: Please note: ??Patients with WBC >100,00 0 may have falsely elevated Potassium levels. ??For accurate Potassium quantif ication in these patients send serum separator tube (gold top) for subsequent determinations. ??Contact the Clinical Chemistry Laboratory if there are any qu estions. Chloride 97 (L) 98 - 107 mmol/L [facility] CO2 23 22 - 31 mmol/L [facility] Anion Gap 17 (H) 5 - 15 mmol/L [facility] Calcium 8.6 8.5 - 10.5 mg/dL [facility] Estimated GFR 18 (L) >=60 mL/min/1.73 m?? [facility] Comment: The eGFR was calculated using the CKD-EP I equation. As with all creatinine based estimates of kidney function, eGFR values calculated with the CKD-EPI equation are not accurate in patients wi th acute kidney failure, extremes of body mass or the acutely ill. [email or web address] eGFR 20 (L) >=60 mL/min/1.73 m?? [facility] Comment: The eGFR was calculated using the CKD-EP I equation. As with all creatinine based estimates of kidney function, eGFR values calculated with the CKD-EPI equation are not accurate in patients wi th acute kidney failure, extremes of body mass or the acutely ill. [email or web address] Specimen Anatomical Collection Method Collection Time Receive d Time (Source) Location / / Volume Laterality Blood specimen 09/08/2018 3:00 PM 019 3:19 (specimen) EDT PM EDT Resulting Agency Comment Spec In Lab Wilman Randolph MD CHEMISTRY ORDERABLES Performing Organization Address City/State/[place] [address] (ABNORMAL) Differential, Automated (09/08/2018 6:30 AM EDT) [facility] Signature Neutrophils % 91.0 % [facility] Neutr Abs (ANC) 20.39 (H) 1.70 - [facility] 6.10 [facility] x10(3)/[facility] LABORATORY Lymphocytes % 2.5 % [facility] Lymphocytes Abs 0.6 (L) 0.9 - 3.2 [facility] x10(3)/[facility] LABORATORY Monocytes % 5.7 % [facility] Monocyte Abs 1.3 (H) 0.3 - 0.9 [facility] x10(3)/[facility] LABORATORY Eosinophils % 0.0 % [facility] Eosinophils Abs 0.0 0.0 - 0.4 [facility] x10(3)/[facility] LABORATORY Basophils % 0.1 % [facility] Basophils Abs 0.0 0.0 - 0.1 [facility] x10(3)/[facility] LABORATORY Immature Gran % 0.70 % [facility] Comment: Immature granulocytes(IG's)percentage an d absolute count will include metamyelocytes, myelocytes, and promyelo cytes. Blood smears from CBCs yielding IG's will be scanned manually for concor dance. If this scan disagrees with the automated IG or if promyelocytes are not ed, a manual differential will be performed. Blanca Gran Abs 0.15 (H) 0.00 - 0.04 x10(3)/[facility] LABORATORY Specimen Anatomical Collection Method Collection Time Receive d Time (Source) Location / / Volume Laterality Blood specimen 09/08/2018 6:30 AM 019 6:46 (specimen) EDT AM EDT Resulting Agency Comment Spec In Lab Leah Cline MD HEMATOLOGY ORDERABLES Performing Organization Address City/State/[place] [address] (ABNORMAL) Hemogram (09/08/2018 6:30 AM EDT) Analysis Performed At Patho logist Time Signature WBC 22.4 (H) 4.0 - 9.5 [facility] x10(3)/[facility] LABORATORY RBC 3.77 (L) 4.00 - [facility] 5.21 [facility] x10(6)/[facility] LABORATORY Hemoglobin 11.6 (L) 11.7 - [facility] 15.5 gm/dL [facility] Hematocrit 33.5 (L) 35.7 - [facility] 45.8 % [facility] MCV 88.9 82.6 - [facility] 94.4 [facility] LABORATORY MCH 30.8 27.1 - [facility] 32.0 pg [facility] MCHC 34.6 31.7 - [facility] 35.0 gm/dL [facility] Platelets 216 145 - 357 [facility] x10(3)/[facility] LABORATORY RDWSD 43.0 37.0 - [facility] 46.0 [facility] LABORATORY RDWCV 13.2 11.5 - [facility] 14.1 % [facility] MPV 11.1 7.6 - 12.9 [facility] LABORATORY nRBC % Auto 0.0 % [facility] nRBC Abs Auto 0.000 0.000 - [facility] 0.000 [facility] x10(3)/[facility] LABORATORY Specimen Anatomical Collection Method Collection Time Receive d Time (Source) Location / / Volume Laterality Blood specimen 09/08/2018 6:30 AM 019 6:46 (specimen) EDT AM EDT Resulting Agency Comment Spec In Lab Leah Cline MD HEMATOLOGY ORDERABLES Performing Organization Address City/State/[place] [address] Magnesium (09/08/2018 5:15 AM EDT) P athologist Signature Magnesium 1.04 0.69 - 1.07 [facility] mmol/L [facility] Specimen Anatomical Collection Method Collection Time Receive d Time (Source) Location / / Volume Laterality Blood specimen 09/08/2018 5:15 AM 019 5:32 (specimen) EDT AM EDT Resulting Agency Comment Spec In Lab Unique Moody MD CHEMISTRY ORDERABLES Performing Organization Address City/State/[place] [address] (ABNORMAL) BMP w/fasting Glucose (09/08/2018 5:15 AM EDT) P athologist Signature Glucose 138 (H) 65 - 99 [facility] Fasting mg/dL [facility] Comment: ?Fasting* Glucose Interpretive C [...] of Diabetes Mellitus, Position Statement from the [employer]. ??Diabete s Care, Volume 33, Supplement 1, Apr 2009 BUN 42 (H) 8 - 18 mg/dL [facility] Creatinine 2.69 (H) 0.70 - 1.20 mg/dL [facility] Sodium 138 135 - 145 mmol/L [facility] Potassium 4.8 3.5 - 5.0 mmol/L [facility] Comment: Please note: ??Patients with WBC >100,00 0 may have falsely elevated Potassium levels. ??For accurate Potassium quantif ication in these patients send serum separator tube (gold top) for subsequent determinations. ??Contact the Clinical Chemistry Laboratory if there are any qu estions. Chloride 96 (L) 98 - 107 mmol/L [facility] CO2 26 22 - 31 mmol/L [facility] Anion Gap 16 (H) 5 - 15 mmol/L [facility] Calcium 8.9 8.5 - 10.5 mg/dL [facility] Estimated GFR 17 (L) >=60 mL/min/1.73 m?? [facility] Comment: The eGFR was calculated using the CKD-EP I equation. As with all creatinine based estimates of kidney function, eGFR values calculated with the CKD-EPI equation are not accurate in patients wi th acute kidney failure, extremes of body mass or the acutely ill. [email or web address] eGFR 20 (L) >=60 mL/min/1.73 m?? [facility] Comment: The eGFR was calculated using the CKD-EP I equation. As with all creatinine based estimates of kidney function, eGFR values calculated with the CKD-EPI equation are not accurate in patients wi th acute kidney failure, extremes of body mass or the acutely ill. [email or web address]kf Specimen Anatomical Collection Method Collection Time Receive d Time (Source) Location / / Volume Laterality Blood specimen 09/08/2018 5:15 AM 019 5:32 (specimen) EDT AM EDT Resulting Agency Comment Spec In Lab Unique Moody MD CHEMISTRY ORDERABLES Performing Organization Address City/State/ZIP Code Phon e Number [address] Lactate, whole blood, send to lab (Leb/CGP) (09/08/2018 5:15 AM EDT) P athologist Signature Lactate WB 1.0 0.5 - 2.2 [facility] mmol/L [facility] Specimen Anatomical Collection Method Collection Time Receive d Time (Source) Location / / Volume Laterality Blood specimen 09/08/2018 5:15 AM 019 5:32 (specimen) EDT AM EDT Resulting Agency Comment Spec In Lab Wilman Randolph MD CHEMISTRY ORDERABLES Performing Organization Address City/State/ZIP Code Phon e Number [address] XR Abdomen 1 view (Generic) (09/07/2018 8:49 PM EDT) Anatomical Region Laterality Modality Abdomen N/A Digital Radiography Specimen (Source) Anatomical Location Collection Method / Collectio n Time Received Time / Laterality Volume Impressions 09/07/2018 8:54 PM EDT Nasogastric tube tip in proximal body of stomach, but sidehole just above diaphragm in distal esophagus. Thank you for letting us participate in the care of this patient. For questions regarding this report, please contact e number below. ? Narrative 09/07/2018 8:54 PM EDT EXAMINATION: XR ABDOMEN 1 VIEW (GENERIC) CLINICAL HISTORY: NG placement TECHNIQUE: AP abdominal radiograph 2018 at 2045 hours. COMPARISON: Paraplanner view from CT abdomen 1 05/16/2017. FINDINGS: Nasogastric tube tip position compatible with the region of the proximal body of the stomach slightly be yond the cardia. However, the sidehole appears just above the diaphragm, consis tent with distal esophagus position. Cutaneous surgical alex project over the lower abdomen. Posterior layering pleural effusions at the lung bases. Procedure Note Laura Naik MD - 09/07/2018Formatt ing of this note might be different from the original. EXAMINATION: XR ABDOMEN 1 VIEW (GENERIC) CLINICAL HISTORY: NG placement TECHNIQUE: AP abdominal radiograph 2018 at 2045 hours. COMPARISON: Paraplanner view from CT abdomen 1 05/16/2017. FINDINGS: Nasogastric tube tip position compatible with the region of the proximal body of the stomach slightly be yond the cardia. However, the sidehole appears just above the diaphragm, consis tent with distal esophagus position. Cutaneous surgical alex project over the lower abdomen. Posterior layering pleural effusions at the lung bases. IMPRESSION Nasogastric tube tip in proximal body of stomach, but sidehole just above diaphragm in distal esophagus. Thank you for letting us participate in the care of this patient. For questions regarding this report, please contact e number below. Wilman Randolph MD IMG DX ORDERABLES Scan, Peripheral Blood (09/07/2018 8:35 PM EDT) [facility] Method Time Signature Plat Estimate Normal [facility] RBC Morphology Abnormal [facility] Ovalocytes 1-5 /HPF [facility] Miguel Cells 1-5 /HPF [facility] Specimen Anatomical Collection Method Collection Time Receive d Time (Source) Location / / Volume Laterality Blood specimen 09/07/2018 8:35 PM 019 8:47 (specimen) EDT PM EDT Resulting Agency Comment Spec In Lab Leah Cline MD HEMATOLOGY ORDERABLES Performing Organization Address City/[facility]/[place] [address] Lactate, whole blood, send to lab (Leb/CGP) (09/07/2018 8:35 PM EDT) P athologist Signature Lactate WB 1.0 0.5 - 2.2 [facility] mmol/L [facility] Specimen Anatomical Collection Method Collection Time Receive d Time (Source) Location / / Volume Laterality Blood specimen 09/07/2018 8:35 PM 019 8:46 (specimen) EDT PM EDT Resulting Agency Comment Spec In Lab Wilman Randolph MD CHEMISTRY ORDERABLES Performing Organization Address City/State/[place] [address] (ABNORMAL) Differential, Automated (09/07/2018 8:35 PM EDT) [facility] Method Time Signature Neutrophils % 87.9 % [facility] Neutr Abs (ANC) 21.24 (H) 1.70 - [facility] 6.10 [facility] x10(3)/[facility] L LABORATORY Lymphocytes % 2.8 % [facility] Lymphocytes Abs 0.7 (L) 0.9 - 3.2 [facility] x10(3)/[facility] LABORATORY Monocytes % 5.7 % [facility] Monocyte Abs 1.4 (H) 0.3 - 0.9 [facility] x10(3)/[facility] LABORATORY Eosinophils % 1.4 % [facility] Eosinophils Abs 0.3 0.0 - 0.4 [facility] x10(3)/[facility] LABORATORY Basophils % 0.5 % [facility] Basophils Abs 0.1 0.0 - 0.1 [facility] x10(3)/[facility] LABORATORY Immature Gran % 1.70 % [facility] Comment: Immature granulocytes(IG's)percentage an d absolute count will include metamyelocytes, myelocytes, and promyelo cytes. Blood smears from CBCs yielding IG's will be scanned manually for concor dance. If this scan disagrees with the automated IG or if promyelocytes are not ed, a manual differential will be performed. Blanca Gran Abs 0.41 (H) 0.00 - 0.04 x10(3)/[facility] LABORATORY Specimen Anatomical Collection Method Collection Time Receive d Time (Source) Location / / Volume Laterality Blood specimen 09/07/2018 8:35 PM 019 8:47 (specimen) EDT PM EDT Resulting Agency Comment Spec In Lab Leah Cline MD HEMATOLOGY ORDERABLES Performing Organization Address City/State/[place] [address] (ABNORMAL) Hemogram (09/07/2018 8:35 PM EDT) Analysis Performed At Patho logist Time Signature WBC 24.2 (H) 4.0 - 9.5 [facility] x10(3)/[facility] LABORATORY RBC 4.20 4.00 - [facility] 5.21 [facility] x10(6)/[facility] LABORATORY Hemoglobin 12.7 11.7 - [facility] 15.5 gm/dL [facility] Hematocrit 36.6 35.7 - [facility] 45.8 % [facility] MCV 87.1 82.6 - [facility] 94.4 [facility] LABORATORY MCH 30.2 27.1 - [facility] 32.0 pg [facility] MCHC 34.7 31.7 - [facility] 35.0 gm/dL [facility] Platelets 223 145 - 357 [facility] x10(3)/[facility] LABORATORY RDWSD 42.2 37.0 - [facility] 46.0 [facility] LABORATORY RDWCV 13.2 11.5 - [facility] 14.1 % [facility] MPV 11.1 7.6 - 12.9 [facility] LABORATORY nRBC % Auto 0.0 % [facility] nRBC Abs Auto 0.000 0.000 - [facility] 0.000 [facility] x10(3)/[facility] LABORATORY Specimen Anatomical Collection Method Collection Time Receive d Time (Source) Location / / Volume Laterality Blood specimen 09/07/2018 8:35 PM 019 8:47 (specimen) EDT PM EDT Resulting Agency Comment Spec In Lab Leah Cline MD HEMATOLOGY ORDERABLES Performing Organization Address City/State/[place] [address] (ABNORMAL) Basic Metabolic Panel (non-fasting) (09/07/2018 8:35 PM EDT) P athologist Signature Glucose Lvl 199 65 - 199 [facility] mg/dL [facility] Comment: Diabetes: >=200 mg/dL plus symp toms BUN 40 (H) 8 - 18 mg/dL [facility] LABORATORY Creatinine 2.85 (H) 0.70 - 1.20 mg/dL [facility] Sodium 137 135 - 145 mmol/L [facility]ORATORY Potassium 4.5 3.5 - 5.0 mmol/L [facility] Comment: Please note: ??Patients with WBC >100,00 0 may have falsely elevated Potassium levels. ??For accurate Potassium quantif ication in these patients send serum separator tube (gold top) for subsequent determinations. ??Contact the Clinical Chemistry Laboratory if there are any qu estions. Chloride 96 (L) 98 - 107 mmol/L [facility] CO2 25 22 - 31 mmol/L [facility] Anion Gap 16 (H) 5 - 15 mmol/L [facility]ORATORY Calcium 8.8 8.5 - 10.5 mg/dL [facility] LABORATORY Estimated GFR 16 (L) >=60 mL/min/1.73 m?? [facility] Comment: The eGFR was calculated using the CKD-EP I equation. As with all creatinine based estimates of kidney function, eGFR values calculated with the CKD-EPI equation are not accurate in patients wi th acute kidney failure, extremes of body mass or the acutely ill. [email or web address] eGFR 19 (L) >=60 mL/min/1.73 m?? [facility] Comment: The eGFR was calculated using the CKD-EP I equation. As with all creatinine based estimates of kidney function, eGFR values calculated with the CKD-EPI equation are not accurate in patients wi th acute kidney failure, extremes of body mass or the acutely ill. [email or web address]kf Specimen Anatomical Collection Method Collection Time Receive d Time (Source) Location / / Volume Laterality Blood specimen 09/07/2018 8:35 PM 019 8:47 (specimen) EDT PM EDT Resulting Agency Comment Spec In Lab Wilman Randolph MD CHEMISTRY ORDERABLES Performing Organization Address City/State/[place] [address] POCT Glucose (09/07/2018 7:59 PM EDT) P athologist Signature POC Glucose 162 65 - 199 [facility] mg/dL [facility] Comment: Supplemental ranges: <140 mg/dL before meals <180 mg/dL all other times of the day Specimen Anatomical Collection Method Collection Time Receive d Time (Source) Location / / Volume Laterality Blood specimen 09/07/2018 7:59 PM 019 7:59 (specimen) EDT PM EDT Wilman Randolph MD POINT OF CARE TEST ORDERABLE S Performing Organization Address City/State/ZIP Code Phon e Number [address] Prepare RBC (09/07/2018 3:55 PM EDT) P athologist Signature Dispensed? Yes [facility] Specimen Anatomical Collection Method Collection Time Receive d Time (Source) Location / / Volume Laterality Blood specimen 09/07/2018 3:55 PM 019 3:54 (specimen) EDT PM EDT Resulting Agency Comment Spec In Lab Wilman Randolph MD BLOOD BANK ORDERABLES Performing Organization Address City/[facility]/ZIP Code Phon e Number [address] (ABNORMAL) BLOOD GAS 2 ARTERIAL (09/07/2018 3:49 PM EDT) Analysis Performed At Patho logist Time Signature pH Art 7.45 7.35 - [facility] 7.45 [facility] pCO2 Art 39 35 - 45 [facility] LABORATORY pO2 Art 86 85 - 104 [facility] LABORATORY HCO3 Art 26.4 (H) 20.0 - [facility] 26.0 [facility] mmol/L [facility] LABORATORY BE Art 2.4 -3.0 - 3.0 [facility] mmol/L [facility] Hgb Blood Gas 12.4 11.7 - [facility] 15.5 gm/dL [facility] O2HB Art 95.4 94.0 - [facility] 97.0 % [facility] COHB Art 0.9 % [facility] Comment: Nonsmokers: 0.5-1.5% COHB Smokers: Variable, but usually less than 10% Toxic: 20-30% COHB Lethal: Greater than 60% COHB METHB Art 0.3 <=1.5 % [facility] LABORATORY Na Whole Blood 121 (L) 135 - 145 mmol/L [facility] LABORATORY K Whole Blood 3.5 3.5 - 5.0 mmol/L [facility] LABORATORY Comment: Please note: Patients with WBC >100,000 may have falsely elevated Potassium levels. Contact the Clinical Chemistry L aboratory if there are any questions. ICa Whole Blood 1.15 1.15 - 1.33 mmol/L [facility] Comment: Note: ??Total bilirubin higher than 20 m g/dL may lead to falsely low ionized calcium. CL Whole Blood 98 98 - 107 mmol/L [facility] LABORATORY Gluc Whole Bld 113 65 - 199 mg/dL [facility] Comment: Diabetes: >=200 mg/dL plus symp toms. Lactate WB 1.1 0.5 - 2.2 mmol/L [facility] LABORATORY FIO2 Art 60 % [facility] LABORATORY PF Ratio Art 143 [facility] LABORATORY Specimen Anatomical Collection Method Collection Time Receive d Time (Source) Location / / Volume Laterality Blood specimen 09/07/2018 3:49 PM 019 3:49 (specimen) EDT PM EDT Wilman Randolph MD CHEMISTRY ORDERABLES Performing Organization Address City/State/ZIP Code Phon e Number [address] ABORH Recheck Status (09/07/2018 7:46 AM EDT) [facility] Method Time Signature ABORH Type Order [facility] hospital LABORATORY Specimen Anatomical Collection Method Collection Time Receive d Time (Source) Location / / Volume Laterality Blood specimen 09/07/2018 7:46 AM 019 7:46 (specimen) EDT AM EDT Resulting Agency Comment Spec In Lab Clinton Collins MD BLOOD BANK ORDERABLES Performing Organization Address City/[facility]/[place] [address] Antibody screen (09/07/2018 7:46 AM EDT) [facility] [employer] Method Time Signature Ab Screen Negative [facility] LABORATORY Expires at 09/10/2018 [facility] [id number] on: [facility]OR[facility]ORY Specimen Anatomical Collection Method Collection Time Receive d Time (Source) Location / / Volume Laterality Blood specimen 09/07/2018 7:46 AM 019 7:46 (specimen) EDT AM EDT Resulting Agency Comment Spec In Lab Clinton Collins MD BLOOD BANK ORDERABLES Performing Organization Address City/State/ZIP Code Phon e Number [address] ABO/Rh Typing (09/07/2018 7:46 AM EDT) P athologist Signature ABORh Type A Pos [facility] Specimen Anatomical Collection Method Collection Time Receive d Time (Source) Location / / Volume Laterality Blood specimen 09/07/2018 7:46 AM 019 7:46 (specimen) EDT AM EDT Resulting Agency Comment Spec In Lab Clinton Collins MD BLOOD BANK ORDERABLES Performing Organization Address City/[facility]/ZIP Code Phon e Number [address] (ABNORMAL) Differential, Automated (09/07/2018 12:30 AM EDT) Patholo gist Method Time Signature Neutrophils % 65.7 % [facility] Neutr Abs (ANC) 7.68 (H) 1.70 - [facility] 6.10 [facility] x10(3)/[facility] LABORATORY Lymphocytes % 13.2 % [facility] Lymphocytes Abs 1.5 0.9 - 3.2 [facility] x10(3)/[facility] LABORATORY Monocytes % 11.6 % [facility] Monocyte Abs 1.4 (H) 0.3 - 0.9 [facility] x10(3)/[facility] LABORATORY Eosinophils % 8.3 % [facility] Eosinophils Abs 1.0 (H) 0.0 - 0.4 [facility] x10(3)/[facility] LABORATORY Basophils % 0.6 % [facility] Basophils Abs 0.1 0.0 - 0.1 [facility] x10(3)/[facility] LABORATORY Immature Gran % 0.60 % [facility] [...] Gran Abs 0.07 (H) 0.00 - 0.04 x10(3)/[facility] LABORATORY Specimen Anatomical Collection Method Collection Time Receive d Time (Source) Location / / Volume Laterality Blood specimen 09/07/2018 12:30 9 (specimen) AM EDT 12:54 AM EDT Resulting Agency Comment Spec In Lab Rhea Cevallos MD HEMATOLOGY ORDERABLES Performing Organization Address City/State/[place] [address] (ABNORMAL) Hemogram (09/07/2018 12:30 AM EDT) Analysis Performed At Patho logist Time Signature WBC 11.7 (H) 4.0 - 9.5 [facility] x10(3)/[facility] LABORATORY RBC 3.94 (L) 4.00 - [facility] 5.21 [facility] x10(6)/[facility] LABORATORY Hemoglobin 11.9 11.7 - [facility] 15.5 gm/dL [facility] Hematocrit 34.4 (L) 35.7 - [facility] 45.8 % [facility] MCV 87.3 82.6 - [facility] 94.4 [facility] LABORATORY MCH 30.2 27.1 - [facility] 32.0 pg [facility] MCHC 34.6 31.7 - [facility] 35.0 gm/dL [facility] Platelets 223 145 - 357 [facility] x10(3)/[facility] LABORATORY RDWSD 41.9 37.0 - [facility] 46.0 [facility] LABORATORY RDWCV 13.1 11.5 - [facility] 14.1 % [facility] LABORATORY MPV 12.1 7.6 - 12.9 [facility] LABORATORY nRBC % Auto 0.0 % [facility] nRBC Abs Auto 0.000 0.000 - [facility] 0.000 [facility] x10(3)/[facility] LABORATORY Specimen Anatomical Collection Method Collection Time Receive d Time (Source) Location / / Volume Laterality Blood specimen 09/07/2018 12:30 9 (specimen) AM EDT 12:54 AM EDT Resulting Agency Comment Spec In Lab Rhea Cevallos MD HEMATOLOGY ORDERABLES Performing Organization Address City/State/ZIP Code Phon e Number [address] Magnesium (09/07/2018 12:30 AM EDT) P athologist Signature Magnesium 0.84 0.69 - 1.07 [facility] mmol/L [facility]OR[facility] Specimen Anatomical Collection Method Collection Time Receive d Time (Source) Location / / Volume Laterality Blood specimen 09/07/2018 12:30 9 (specimen) AM EDT 12:53 AM EDT Resulting Agency Comment Spec In Lab Unique Moody MD CHEMISTRY ORDERABLES Performing Organization Address City/State/[place] [address] (ABNORMAL) BMP w/fasting Glucose (09/07/2018 12:30 AM EDT) P athologist Signature Glucose 112 (H) 65 - 99 [facility] Fasting mg/dL [facility] Comment: ?Fasting* Glucose Interpretive C [...] of Diabetes Mellitus, Position Statement from the [employer]. ??Diabete s Care, Volume 33, Supplement 1, Apr 2009 BUN 39 (H) 8 - 18 mg/dL [facility] LABORATORY Creatinine 2.51 (H) 0.70 - 1.20 mg/dL [facility] Sodium 136 135 - 145 mmol/L [facility] LABORATORY Potassium 4.4 3.5 - 5.0 mmol/L [facility]OR[facility]ORY Comment: delta result rechecked-KLA Please note: ??Patients with WBC >100,00 0 may have falsely elevated Potassium levels. ??For accurate Potassium quantif ication in these patients send serum separator tube (gold top) for subsequent determinations. ??Contact the Clinical Chemistry Laboratory if there are any qu estions. Chloride 97 (L) 98 - 107 mmol/L [facility] CO2 27 22 - 31 mmol/L [facility] Anion Gap 12 5 - 15 mmol/L [facility] LABORATORY Calcium 8.5 8.5 - 10.5 mg/dL [facility] LABORATORY Estimated GFR 19 (L) >=60 mL/min/1.73 m?? [facility] Comment: The eGFR was calculated using the CKD-EP I equation. As with all creatinine based estimates of kidney function, eGFR values calculated with the CKD-EPI equation are not accurate in patients wi th acute kidney failure, extremes of body mass or the acutely ill. [email or web address] eGFR 22 (L) >=60 mL/min/1.73 m?? [facility] Comment: The eGFR was calculated using the CKD-EP I equation. As with all creatinine based estimates of kidney function, eGFR values calculated with the CKD-EPI equation are not accurate in patients wi th acute kidney failure, extremes of body mass or the acutely ill. [email or web address] Specimen Anatomical Collection Method Collection Time Receive d Time (Source) Location / / Volume Laterality Blood specimen 09/07/2018 12:30 9 (specimen) AM EDT 12:53 AM EDT Resulting Agency Comment Spec In Lab Unique Moody MD CHEMISTRY ORDERABLES Performing Organization Address City/State/[place] [address] (ABNORMAL) Potassium (09/06/2018 5:10 PM EDT) P athologist Signature Potassium 3.3 (L) 3.5 - 5.0 [facility] mmol/L [facility] Comment: Please note: ??Patients with WBC >100,00 0 may have falsely elevated Potassium levels. ??For accurate Potassium quantif ication in these patients send serum separator tube (gold top) for subsequent determinations. ??Contact the Clinical Chemistry Laboratory if there are any qu estions. Specimen Anatomical Collection Method Collection Time Receive d Time (Source) Location / / Volume Laterality Blood specimen 09/06/2018 5:10 PM 019 5:42 (specimen) EDT PM EDT Resulting Agency Comment Spec In Lab Unique Moody MD CHEMISTRY ORDERABLES Performing Organization Address City/[facility]/ZIP Code Phon e Number [address] Gold Tube HOLD (09/06/2018 5:10 PM EDT) athologist Signature Gold Hold Sample in [facility]. [facility] LABORATORY Specimen Anatomical Collection Method Collection Time Receive d Time (Source) Location / / Volume Laterality Blood specimen 09/06/2018 5:10 PM 019 5:43 (specimen) EDT PM EDT Wilman Randolph MD CHEMISTRY ORDERABLES Performing Organization Address City/[facility] [place] [address] XR Chest PA or AP 1 view (09/06/2018 3:55 PM EDT) Anatomical Region Laterality Modality Chest N/A Digital Radiography Specimen (Source) Anatomical Location Collection Method / Collectio n Time Received Time / Laterality Volume Impressions 09/06/2018 5:00 PM EDT Right IJ CVC tip projecting over the superior vena cava. Improved pulmonary vascular congestion, pulmonary edema, and bibasilar atelectasis and effusions. I have personally reviewed the image(s) and the residents interpretation and agree with the findings, Laura mackenzie 09/06/2018 5:00 PM Thank you for letting us participate in the care of this patient. For questions regarding this report, please contact e number below. ? Narrative 09/06/2018 5:00 PM EDT EXAMINATION: XR CHEST PA OR AP 1 VIEW CLINICAL HISTORY: RIJ CVC line placement TECHNIQUE: Portable semiupright radiograph of the c hest, one view COMPARISON: 09/01/2018 and 09/03/2018 FINDINGS: The right internal jugular central venou s catheter tip projects over the upper superior vena cava. Decreased bilateral parenchymal opacitie s, pulmonary vascular markings, interstitial prominence, and costophreni c angle blunting. Unchanged cardiomediastinal silhouette compared to chest radiograph dated 09/01/2018. Procedure Note Laura Naik MD - 09/06/2018Formatt ing of this note might be different from the original. EXAMINATION: XR CHEST PA OR AP 1 VIEW CLINICAL HISTORY: RIJ CVC line placement TECHNIQUE: Portable semiupright radiograph of the c hest, one view COMPARISON: 09/01/2018 and 09/03/2018 FINDINGS: The right internal jugular central venou s catheter tip projects over the upper superior vena cava. Decreased bilateral parenchymal opacitie s, pulmonary vascular markings, interstitial prominence, and costophreni c angle blunting. Unchanged cardiomediastinal silhouette compared to chest radiograph dated 09/01/2018. IMPRESSION Right IJ CVC tip projecting over the sup erior vena cava. Improved pulmonary vascular congestion, pulmonary edema, and bibasilar atelectasis and effusions. I have personally reviewed the image(s) and the residents interpretation and agree with the findings, Laura amckenzie 09/06/2018 5:00 PM Thank you for letting us participate in the care of this patient. For questions regarding this report, please contact e number below. Anurag Correa MD IMG DX ORDERABLES NM Renal, Anatomic Scan (09/06/2018 1:56 PM EDT) Anatomical Region Laterality Modality Nuclear Medicine Specimen (Source) Anatomical Location Collection Method / Collectio n Time Received Time / Laterality Volume Impressions 09/06/2018 2:10 PM EDT Differential function is 45% right kidney, 55% left kidney. Thank you for letting us participate in the care of this patient. For questions regarding this report, please contact e number below. ? Narrative 09/06/2018 2:10 PM EDT EXAMINATION: NM RENAL, ANATOMIC SCAN CLINICAL HISTORY: 67F w/ renal artery st enosis, completed occluded kidney, ?function of kidneys TECHNIQUE: Two hours following the intra venous administration of 1.8 mCi Tc-99m DMSA, planar images of the kidneys were obtained in the anterior, posterior, and oblique projections. COMPARISON: FINDINGS: Homogeneous tracer uptake in all regions of both kidneys. The right kidney appears slightly smaller than the left k idney. Quantitative Analysis: The split functional analysis: Right ??4 5%; Left ??55%. Incidental finding of diffuse soft tissu e background activity, consistent with some degree of bilateral renal insuffici ency. Procedure Note Lars Hernandez MD - 09/06/2018Formatti ng of this note might be different from the original. EXAMINATION: NM RENAL, ANATOMIC SCAN CLINICAL HISTORY: 67F w/ renal artery st enosis, completed occluded kidney, ?function of kidneys TECHNIQUE: Two hours following the intra venous administration of 1.8 mCi Tc-99m DMSA, planar images of the kidneys were obtained in the anterior, posterior, and oblique projections. COMPARISON: FINDINGS: Homogeneous tracer uptake in all regions of both kidneys. The right kidney appears slightly smaller than the left k renukaney. Quantitative Analysis: The split functional analysis: Right 45% ; Left 55%. Incidental finding of diffuse soft tissu e background activity, consistent with some degree of bilateral renal insuffici ency. IMPRESSION Differential function is 45% right kidne y, 55% left kidney. Thank you for letting us participate in the care of this patient. For questions regarding this report, please contact e number below. Thom Munguia MD IMG NM ORDERABLES Vein Map Leg, Unilat (09/06/2018 11:09 AM EDT) Component Value Ref Test Analysis Performed At [facility] gist Range Method Time Signature VB Text Department: Vascular Surgery Lab VASCUBASE Report Patient: [id number] (PRETTY HARMON) CPT: 98125 ICD10: Z01.818;I70.1 Referring Physician: WILMAN RANDOLPH ?? Phone: Indications: ??preop planning for renal artery bypass ICD10 Diagnosis Code: Z01.818, I70.1 Findings: Right ?Diameter (mm) ?? GSV, Near SFJ ?6.5 ?? GSV, Proximal Thigh ?3.2 ?? GSV, Mid Thigh ? 3.2 ?? GSV, Distal Thigh ?3.2 ?? GSV, ??Knee ? 3.2 ?? GSV Prox Calf ?1.9 ?? GSV, Mid Calf ?2.0 ?? GSV, Distal Calf ? 1.2 ?? Interpretation: RIGHT: Patent great saphenous vein with no evidence of throm bus. Vein with diameter >2.5 mm marked with a solid black line. Comparison: No previous study in our vascular lab database f or comparison. Electronically Signed by: ELAH PEREZ on 2018-09-07 05:38:38 PM VB Text End of Report VASCU[facility] Report Specimen (Source) Anatomical Collection Method Collection Time Re ceived Time Location / / Volume Laterality 09/06/2018 11:09 AM EDT Wilman Randolph MD VASCULAR ORDERABLES Performing Organization Address City/State/ZIP Code Phon e Number [facility] (ABNORMAL) BMP w/fasting Glucose (09/06/2018 8:55 AM EDT) P athologist Signature Glucose 226 (H) 65 - 99 [facility] Fasting mg/dL [facility] Comment: ?Fasting* Glucose Interpretive C [...] of Diabetes Mellitus, Position Statement from the [employer]. ??Diabete s Care, Volume 33, Supplement 1, Apr 2009 BUN 37 (H) 8 - 18 mg/dL [facility] Creatinine 2.34 (H) 0.70 - 1.20 mg/dL [facility] Sodium 136 135 - 145 mmol/L [facility] Potassium 2.9 (Critical) 3.5 - 5.0 mmol/L [facility] Comment: Results rechecked Called by: chandana, Read back by: Odalys zapata, Date/Time:09/06/18 10:47. Please note: ??Patients with WBC >100,00 0 may have falsely elevated Potassium levels. ??For accurate Potassium quantif ication in these patients send serum separator tube (gold top) for subsequent determinations. ??Contact the Clinical Chemistry Laboratory if there are any qu estions. Chloride 96 (L) 98 - 107 mmol/L [facility] CO2 26 22 - 31 mmol/L [facility] Anion Gap 14 5 - 15 mmol/L [facility]OR[facility] Calcium 8.3 (L) 8.5 - 10.5 mg/dL [facility] Estimated GFR 21 (L) >=60 mL/min/1.73 m?? [facility] Comment: The eGFR was calculated using the CKD-EP I equation. As with all creatinine based estimates of kidney function, eGFR values calculated with the CKD-EPI equation are not accurate in patients wi th acute kidney failure, extremes of body mass or the acutely ill. [email or web address]://[email or web address] eGFR 24 (L) >=60 mL/min/1.73 m?? [facility] Comment: The eGFR was calculated using the CKD-EP I equation. As with all creatinine based estimates of kidney function, eGFR values calculated with the CKD-EPI equation are not accurate in patients wi th acute kidney failure, extremes of body mass or the acutely ill. [email or web address]kf Specimen Anatomical Collection Method Collection Time Receive d Time (Source) Location / / Volume Laterality Blood specimen 09/06/2018 8:55 AM 019 9:02 (specimen) EDT AM EDT Resulting Agency Comment Spec In Lab Tyron Kemp MD CHEMISTRY ORDERABLES Performing Organization Address City/State/[place] [address] (ABNORMAL) Differential, Automated (09/06/2018 6:00 AM EDT) [facility] gist Method Time Signature Neutrophils % 64.3 % [facility] Neutr Abs (ANC) 6.80 (H) 1.70 - [facility] 6.10 [facility] x10(3)/[facility] LABORATORY Lymphocytes % 15.2 % [facility] Lymphocytes Abs 1.6 0.9 - 3.2 [facility] x10(3)/[facility] LABORATORY Monocytes % 10.5 % [facility] Monocyte Abs 1.1 (H) 0.3 - 0.9 [facility] x10(3)/[facility] LABORATORY Eosinophils % 8.6 % [facility] Eosinophils Abs 0.9 (H) 0.0 - 0.4 [facility] x10(3)/[facility] LABORATORY Basophils % 0.7 % [facility] Basophils Abs 0.1 0.0 - 0.1 [facility] x10(3)/[facility] LABORATORY Immature Gran % 0.70 % [facility] Comment: Immature granulocytes(IG's)percentage an d absolute count will include metamyelocytes, myelocytes, and promyelo cytes. Blood smears from CBCs yielding IG's will be scanned manually for concor dance. If this scan disagrees with the automated IG or if promyelocytes are not ed, a manual differential will be performed. Blanca Gran Abs 0.07 (H) 0.00 - 0.04 x10(3)/[facility] LABORATORY Specimen Anatomical Collection Method Collection Time Receive d Time (Source) Location / / Volume Laterality Blood specimen 09/06/2018 6:00 AM 019 6:14 (specimen) EDT AM EDT Resulting Agency Comment Spec In Lab Rhea Cevallos MD HEMATOLOGY ORDERABLES Performing Organization Address City/State/[place] [address] (ABNORMAL) Hemogram (09/06/2018 6:00 AM EDT) Analysis Performed At Patho logist Time Signature WBC 10.6 (H) 4.0 - 9.5 [facility] x10(3)/[facility] LABORATORY RBC 4.43 4.00 - [facility] 5.21 [facility] x10(6)/[facility] LABORATORY Hemoglobin 13.2 11.7 - [facility] [place] 15.5 gm/dL [facility] Hematocrit 38.1 35.7 - [facility] [place] 45.8 % [facility] MCV 86.0 82.6 - [facility] 94.4 [facility] LABORATORY MCH 29.8 27.1 - [place] 32.0 pg [facility] MCHC 34.6 31.7 - [place] [place] 35.0 gm/dL [facility] Platelets 228 145 - 357 [facility] x10(3)/[facility] LABORATORY RDWSD 41.4 37.0 - [facility] 46.0 fL [facility] RDWCV 13.2 11.5 - [facility] 14.1 % [facility] MPV 11.4 7.6 - 12.9 [facility] LABORATORY nRBC % Auto 0.0 % [facility] nRBC Abs Auto 0.000 0.000 - [facility] [place] 0.000 [facility] x10(3)/[facility] LABORATORY Specimen Anatomical Collection Method Collection Time Receive d Time (Source) Location / / Volume Laterality Blood specimen 09/06/2018 6:00 AM 019 6:14 (specimen) EDT AM EDT Resulting Agency Comment Spec In Lab Rhea Cevallos MD HEMATOLOGY ORDERABLES Performing Organization Address City/[facility]/[place] [address] Magnesium (09/06/2018 6:00 AM EDT) P athologist Signature Magnesium 0.88 0.69 - 1.07 [facility] mmol/L [facility] Specimen Anatomical Collection Method Collection Time Receive d Time (Source) Location / / Volume Laterality Blood specimen 09/06/2018 6:00 AM 019 6:14 (specimen) EDT AM EDT Resulting Agency Comment Spec In Lab Unique Moody MD CHEMISTRY ORDERABLES Performing Organization Address City/[facility]/[place] [address] (ABNORMAL) BMP w/fasting Glucose (09/06/2018 6:00 AM EDT) athologist Signature Glucose 120 (H) 65 - 99 [facility] Fasting mg/dL [facility] Comment: ?Fasting* Glucose Interpretive C [...] of Diabetes Mellitus, Position Statement from the [employer]. ??Diabete s Care, Volume 33, Supplement 1, Apr 2009 BUN 40 (H) 8 - 18 mg/dL [facility] Creatinine 2.46 (H) 0.70 - 1.20 mg/dL [facility] Sodium 140 135 - 145 mmol/L [facility] Potassium 3.3 (L) 3.5 - 5.0 mmol/L [facility] Comment: result rechecked-mkf Please note: ??Patients with WBC >100,00 0 may have falsely elevated Potassium levels. ??For accurate Potassium quantif ication in these patients send serum separator tube (gold top) for subsequent determinations. ??Contact the Clinical Chemistry Laboratory if there are any qu estions. Chloride 96 (L) 98 - 107 mmol/L [facility] CO2 28 22 - 31 mmol/L [facility] Anion Gap 16 (H) 5 - 15 mmol/L [facility]ORATORY Calcium 8.9 8.5 - 10.5 mg/dL [facility] Estimated GFR 19 (L) >=60 mL/min/1.73 m?? [facility] Comment: The eGFR was calculated using the CKD-EP I equation. As with all creatinine based estimates of kidney function, eGFR values calculated with the CKD-EPI equation are not accurate in patients wi th acute kidney failure, extremes of body mass or the acutely ill. [email or web address]://[email or web address]kf eGFR 22 (L) >=60 mL/min/1.73 m?? [facility] Comment: The eGFR was calculated using the CKD-EP I equation. As with all creatinine based estimates of kidney function, eGFR values calculated with the CKD-EPI equation are not accurate in patients wi th acute kidney failure, extremes of body mass or the acutely ill. [email or web address] Specimen Anatomical Collection Method Collection Time Receive d Time (Source) Location / / Volume Laterality Blood specimen 09/06/2018 6:00 AM 019 6:14 (specimen) EDT AM EDT Resulting Agency Comment Spec In Lab Unique Moody MD CHEMISTRY ORDERABLES Performing Organization Address City/[facility]/ZIP Code Phon e Number [address] Potassium (09/05/2018 2:54 AM EDT) P athologist Signature Potassium 4.9 3.5 - 5.0 [facility] mmol/L [facility] Comment: delta result rechecked-KLA Please note: ??Patients with WBC >100,00 0 may have falsely elevated Potassium levels. ??For accurate Potassium quantif ication in these patients send serum separator tube (gold top) for subsequent determinations. ??Contact the Clinical Chemistry Laboratory if there are any qu estions. Specimen Anatomical Collection Method Collection Time Receive d Time (Source) Location / / Volume Laterality Blood specimen 09/05/2018 2:54 AM 019 3:00 (specimen) EDT AM EDT Resulting Agency Comment Spec In Lab Wilman Randolph MD CHEMISTRY ORDERABLES Performing Organization Address City/[facility]/ZIP Code Phon e Number [address] (ABNORMAL) Differential, Automated (09/05/2018 1:50 AM EDT) Patholo gist Method Time Signature Neutrophils % 72.2 % [facility] Neutr Abs (ANC) 8.67 (H) 1.70 - [facility] 6.10 [facility] x10(3)/[facility] LABORATORY Lymphocytes % 12.7 % [facility] Lymphocytes Abs 1.5 0.9 - 3.2 [facility] x10(3)/[facility] LABORATORY Monocytes % 10.0 % [facility] Monocyte Abs 1.2 (H) 0.3 - 0.9 [facility] x10(3)/[facility] LABORATORY Eosinophils % 4.1 % [facility] Eosinophils Abs 0.5 (H) 0.0 - 0.4 [facility] x10(3)/[facility] LABORATORY Basophils % 0.4 % [facility] Basophils Abs 0.0 0.0 - 0.1 [facility] x10(3)/[facility] LABORATORY Immature Gran % 0.60 % [facility] [...] Gran Abs 0.07 (H) 0.00 - 0.04 x10(3)/[facility] LABORATORY Specimen Anatomical Collection Method Collection Time Receive d Time (Source) Location / / Volume Laterality Blood specimen 09/05/2018 1:50 AM 019 2:00 (specimen) EDT AM EDT Resulting Agency Comment Spec In Lab Rhea Cevallos MD HEMATOLOGY ORDERABLES Performing Organization Address City/State/[place] [address] (ABNORMAL) Hemogram (09/05/2018 1:50 AM EDT) Analysis Performed At Patho logist Time Signature WBC 12.0 (H) 4.0 - 9.5 [facility] x10(3)/[facility] LABORATORY RBC 3.96 (L) 4.00 - [facility] 5.21 [facility] x10(6)/[facility] LABORATORY Hemoglobin 12.3 11.7 - [facility] 15.5 gm/dL [facility] Hematocrit 34.1 (L) 35.7 - [facility] 45.8 % [facility] MCV 86.1 82.6 - [place] 94.4 [facility] LABORATORY MCH 31.1 27.1 - [place] [place] 32.0 pg [facility] MCHC 36.1 (H) 31.7 - [place] [place] 35.0 gm/dL [facility] Platelets 243 145 - 357 [facility] x10(3)/[facility] LABORATORY RDWSD 40.6 37.0 - [place] 46.0 [facility] LABORATORY RDWCV 13.0 11.5 - [facility] 14.1 % [facility] MPV 12.2 7.6 - 12.9 [facility] LABORATORY nRBC % Auto 0.0 % [facility] nRBC Abs Auto 0.000 0.000 - [place] 0.000 [facility] x10(3)/[facility] LABORATORY Specimen Anatomical Collection Method Collection Time Receive d Time (Source) Location / / Volume Laterality Blood specimen 09/05/2018 1:50 AM 019 2:00 (specimen) EDT AM EDT Resulting Agency Comment Spec In Lab Rhea Cevallos MD HEMATOLOGY ORDERABLES Performing Organization Address City/State/[place] [address] (ABNORMAL) Magnesium (09/05/2018 1:50 AM EDT) P athologist Signature Magnesium 1.24 (H) 0.69 - 1.07 [facility] mmol/L [facility] Specimen Anatomical Collection Method Collection Time Receive d Time (Source) Location / / Volume Laterality Blood specimen 09/05/2018 1:50 AM 019 2:00 (specimen) EDT AM EDT Resulting Agency Comment Spec In Lab Unique Moody MD CHEMISTRY ORDERABLES Performing Organization Address City/[facility]/[place] [address] (ABNORMAL) BMP w/fasting Glucose (09/05/2018 1:50 AM EDT) athologist Signature Glucose 130 (H) 65 - 99 [facility] Fasting mg/dL [facility] Comment: ?Fasting* Glucose Interpretive C [...] of Diabetes Mellitus, Position Statement from the [place] [employer]. ??Diabete s Care, Volume 33, Supplement 1, Apr 2009 BUN 44 (H) 8 - 18 mg/dL [facility] Creatinine 2.50 (H) 0.70 - 1.20 mg/dL [facility] Sodium 137 135 - 145 mmol/L [facility] Potassium Not Perf 3.5 - 5.0 [facility] Comment: Unable to quantitate due to sample hemol ysis. ??Sample redraw suggested. Called by: LAUREN, Read back by: Whitney So , Date/Time:09/05/18 02:34. Please note: ??Patients with WBC >100,00 0 may have falsely elevated Potassium levels. ??For accurate Potassium quantif ication in these patients send serum separator tube (gold top) for subsequent determinations. ??Contact the Clinical Chemistry Laboratory if there are any qu estions. Chloride 101 98 - 107 mmol/L [facility] Comment: delta result rechecked-KLA CO2 24 22 - 31 mmol/L [facility] Anion Gap 12 5 - 15 mmol/L [facility] Calcium 8.5 8.5 - 10.5 mg/dL [facility] Estimated GFR 19 (L) >=60 mL/min/1.73 m?? [facility] Comment: The eGFR was calculated using the CKD-EP I equation. As with all creatinine based estimates of kidney function, eGFR values calculated with the CKD-EPI equation are not accurate in patients wi th acute kidney failure, extremes of body mass or the acutely ill. http://[employer]kf eGFR 22 (L) >=60 mL/min/1.73 m?? [facility] Comment: The eGFR was calculated using the CKD-EP I equation. As with all creatinine based estimates of kidney function, eGFR values calculated with the CKD-EPI equation are not accurate in patients wi th acute kidney failure, extremes of body mass or the acutely ill. [email or web address] Specimen Anatomical Collection Method Collection Time Receive d Time (Source) Location / / Volume Laterality Blood specimen 09/05/2018 1:50 AM 019 2:00 (specimen) EDT AM EDT Resulting Agency Comment Spec In Lab Unique Moody MD CHEMISTRY ORDERABLES Performing Organization Address City/State/[place] [address] (ABNORMAL) BMP w/fasting Glucose (09/04/2018 1:20 PM EDT) P athologist Signature Glucose 228 (H) 65 - 99 [facility] Fasting mg/dL [facility] Comment: ?Fasting* Glucose Interpretive C [...] of Diabetes Mellitus, Position Statement from the [employer]. ??Diabete s Care, Volume 33, Supplement 1, Apr 2009 BUN 47 (H) 8 - 18 mg/dL [facility] Creatinine 2.45 (H) 0.70 - 1.20 mg/dL [facility] Sodium 131 (L) 135 - 145 mmol/L [facility] Potassium 3.2 (L) 3.5 - 5.0 mmol/L [facility] Comment: Please note: ??Patients with WBC >100,00 0 may have falsely elevated Potassium levels. ??For accurate Potassium quantif ication in these patients send serum separator tube (gold top) for subsequent determinations. ??Contact the Clinical Chemistry Laboratory if there are any qu estions. Chloride 91 (L) 98 - 107 mmol/L [facility] CO2 23 22 - 31 mmol/L [facility] Anion Gap 17 (H) 5 - 15 mmol/L [facility] Calcium 8.5 8.5 - 10.5 mg/dL [facility] Estimated GFR 19 (L) >=60 mL/min/1.73 m?? [facility] Comment: The eGFR was calculated using the CKD-EP I equation. As with all creatinine based estimates of kidney function, eGFR values calculated with the CKD-EPI equation are not accurate in patients wi th acute kidney failure, extremes of body mass or the acutely ill. http://[employer]kf eGFR 23 (L) >=60 mL/min/1.73 m?? [facility] Comment: The eGFR was calculated using the CKD-EP I equation. As with all creatinine based estimates of kidney function, eGFR values calculated with the CKD-EPI equation are not accurate in patients wi th acute kidney failure, extremes of body mass or the acutely ill. [email or web address]://[email or web address]kf Specimen Anatomical Collection Method Collection Time Receive d Time (Source) Location / / Volume Laterality Blood specimen 09/04/2018 1:20 PM 019 1:59 (specimen) EDT PM EDT Resulting Agency Comment Spec In Lab Wilman Randolph MD CHEMISTRY ORDERABLES Performing Organization Address City/State/ZIP Code Phon e Number [address] Magnesium (09/04/2018 2:25 AM EDT) P athologist Signature Magnesium 0.92 0.69 - 1.07 [facility] mmol/L [facility] Specimen Anatomical Collection Method Collection Time Receive d Time (Source) Location / / Volume Laterality Blood specimen Venous Draw / 09/04/2018 2:25 AM 2018 5:04 (specimen) Unknown EDT AM EDT Resulting Agency Comment Spec In Lab Rhea Cevallos MD CHEMISTRY ORDERABLES Performing Organization Address City/[facility]/ZIP Code Phon e Number [address] (ABNORMAL) Differential, Automated (09/04/2018 2:25 AM EDT) Patholo gist Method Time Signature Neutrophils % 83.5 % [facility] Neutr Abs (ANC) 11.28 (H) 1.70 - [facility] 6.10 [facility] x10(3)/[facility] LABORATORY Lymphocytes % 7.5 % [facility] Lymphocytes Abs 1.0 0.9 - 3.2 [facility] x10(3)/[facility] LABORATORY Monocytes % 7.9 % [facility] Monocyte Abs 1.1 (H) 0.3 - 0.9 [facility] x10(3)/[facility] LABORATORY Eosinophils % 0.1 % [facility] Eosinophils Abs 0.0 0.0 - 0.4 [facility] x10(3)/[facility] LABORATORY Basophils % 0.1 % [facility] Basophils Abs 0.0 0.0 - 0.1 [facility] x10(3)/[facility] LABORATORY Immature Gran % 0.90 % [facility] Comment: Immature granulocytes(IG's)percentage an d absolute count will include metamyelocytes, myelocytes, and promyelo cytes. Blood smears from CBCs yielding IG's will be scanned manually for concor dandorie. If this scan disagrees with the automated IG or if promyelocytes are not ed, a manual differential will be performed. Blanca Gran Abs 0.12 (H) 0.00 - 0.04 x10(3)/[facility] LABORATORY Specimen Anatomical Collection Method Collection Time Receive d Time (Source) Location / / Volume Laterality Blood specimen 09/04/2018 2:25 AM 019 2:45 (specimen) EDT AM EDT Resulting Agency Comment Spec In Lab Adriano Howell MD HEMATOLOGY ORDERABLES Performing Organization Address City/State/[place] [address] (ABNORMAL) Hemogram (09/04/2018 2:25 AM EDT) Analysis Performed At Patho logist Time Signature WBC 13.5 (H) 4.0 - 9.5 [facility] x[facility](3[facility] LABORATORY RBC 3.93 (L) 4.00 - [facility] 5.21 [facility] x10(6)/[facility] LABORATORY Hemoglobin 12.0 11.7 - [facility] 15.5 gm/dL [facility] Hematocrit 34.4 (L) 35.7 - [facility] 45.8 % [facility] MCV 87.5 82.6 - [facility] 94.4 [facility] LABORATORY MCH 30.5 27.1 - [facility] 32.0 pg [facility] MCHC 34.9 31.7 - [facility] 35.0 gm/dL [facility] Platelets 221 145 - 357 [facility] x10(3)/[facility] LABORATORY RDWSD 42.3 37.0 - [facility] 46.0 [facility] LABORATORY RDWCV 13.2 11.5 - [facility] 14.1 % [facility] MPV 11.5 7.6 - 12.9 [facility] nRBC % Auto 0.0 % [facility] nRBC Abs Auto 0.000 0.000 - [facility] 0.000 [facility] x10(3)/[facility] LABORATORY Specimen Anatomical Collection Method Collection Time Receive d Time (Source) Location / / Volume Laterality Blood specimen 09/04/2018 2:25 AM 019 2:45 (specimen) EDT AM EDT Resulting Agency Comment Spec In Lab Adriano Howell MD HEMATOLOGY ORDERABLES Performing Organization Address City/State/[place] [address] (ABNORMAL) BMP w/fasting Glucose (09/04/2018 2:25 AM EDT) athologist Signature Glucose 122 (H) 65 - 99 [facility] Fasting mg/dL [facility] Comment: ?Fasting* Glucose Interpretive C [...] of Diabetes Mellitus, Position Statement from the [employer]. ??Diabete s Care, Volume 33, Supplement 1, Apr 2009 BUN 53 (H) 8 - 18 mg/dL [facility] Creatinine 2.73 (H) 0.70 - 1.20 mg/dL [facility] Sodium 137 135 - 145 mmol/L [facility] Potassium 3.6 3.5 - 5.0 mmol/L [facility] Comment: Please note: ??Patients with WBC >100,00 0 may have falsely elevated Potassium levels. ??For accurate Potassium quantif ication in these patients send serum separator tube (gold top) for subsequent determinations. ??Contact the Clinical Chemistry Laboratory if there are any qu estions. Chloride 98 98 - 107 mmol/L [facility] CO2 23 22 - 31 mmol/L [facility] Anion Gap 16 (H) 5 - 15 mmol/L [facility] Calcium 8.7 8.5 - 10.5 mg/dL [facility] Estimated GFR 17 (L) >=60 mL/min/1.73 m?? [facility] Comment: The eGFR was calculated using the CKD-EP I equation. As with all creatinine based estimates of kidney function, eGFR values calculated with the CKD-EPI equation are not accurate in patients wi th acute kidney failure, extremes of body mass or the acutely ill. [email or web address]Ank eGFR 20 (L) >=60 mL/min/1.73 m?? [facility] Comment: The eGFR was calculated using the CKD-EP I equation. As with all creatinine based estimates of kidney function, eGFR values calculated with the CKD-EPI equation are not accurate in patients wi th acute kidney failure, extremes of body mass or the acutely ill. [email or web address]SAnkf Specimen Anatomical Collection Method Collection Time Receive d Time (Source) Location / / Volume Laterality Blood specimen 09/04/2018 2:25 AM 019 2:45 (specimen) EDT AM EDT Resulting Agency Comment Spec In Lab Unique Moody MD CHEMISTRY ORDERABLES Performing Organization Address City/[facility]/[place] [address] Magnesium (09/03/2018 7:57 PM EDT) P athologist Signature Magnesium 0.94 0.69 - 1.07 [facility] mmol/L [facility] Specimen Anatomical Collection Method Collection Time Receive d Time (Source) Location / / Volume Laterality Blood specimen 09/03/2018 7:57 PM 019 8:11 (specimen) EDT PM EDT Resulting Agency Comment Spec In Lab Thom Munguia MD CHEMISTRY ORDERABLES Performing Organization Address City/[facility] [place] [address] (ABNORMAL) BMP w/fasting Glucose (09/03/2018 7:57 PM EDT) P athologist Signature Glucose 165 (H) 65 - 99 [facility] Fasting mg/dL [facility] Comment: ?Fasting* Glucose Interpretive C [...] of Diabetes Mellitus, Position Statement from the [employer]. ??Diabete s Care, Volume 33, Supplement 1, Apr 2009 BUN 51 (H) 8 - 18 mg/dL [facility] Creatinine 2.76 (H) 0.70 - 1.20 mg/dL [facility] Sodium 135 135 - 145 mmol/L [facility] Potassium 4.0 3.5 - 5.0 mmol/L [facility] Comment: result rechecked-csb Please note: ??Patients with WBC >100,00 0 may have falsely elevated Potassium levels. ??For accurate Potassium quantif ication in these patients send serum separator tube (gold top) for subsequent determinations. ??Contact the Clinical Chemistry Laboratory if there are any qu estions. Chloride 97 (L) 98 - 107 mmol/L [facility] CO2 22 22 - 31 mmol/L [facility] Anion Gap 16 (H) 5 - 15 mmol/L [facility] Calcium 8.5 8.5 - 10.5 mg/dL [facility] Estimated GFR 17 (L) >=60 mL/min/1.73 m?? [facility] Comment: The eGFR was calculated using the CKD-EP I equation. As with all creatinine based estimates of kidney function, eGFR values calculated with the CKD-EPI equation are not accurate in patients wi th acute kidney failure, extremes of body mass or the acutely ill. [email or web address] eGFR 20 (L) >=60 mL/min/1.73 m?? [facility] Comment: The eGFR was calculated using the CKD-EP I equation. As with all creatinine based estimates of kidney function, eGFR values calculated with the CKD-EPI equation are not accurate in patients wi th acute kidney failure, extremes of body mass or the acutely ill. [email or web address] Specimen Anatomical Collection Method Collection Time Receive d Time (Source) Location / / Volume Laterality Blood specimen 09/03/2018 7:57 PM 019 8:11 (specimen) EDT PM EDT Resulting Agency Comment Spec In Lab Thom Munguia MD CHEMISTRY ORDERABLES Performing Organization Address City/State/[place] [address] [facility] [address] Renin Activity (09/03/2018 6:10 PM EDT) P athologist Signature Renin Activity 25 ng/ml/hr [facility] Comment: REFERENCE VALUE------ (Peripheral vein specimen) Na-deplete, upright: ??Mean: 5.9 ??Range: 2.9-10.8 Na-replete, upright: ??Mean: 1.0 ??Range: < or =0.6-3.0 ADDITIONAL INFORMATIO N Testing performed by Liquid YapTimeograp hy-Tandem Mass Spectrometry (LC-MS/MS). This test was developed and its performa nce characteristics determined by [facility] in a manner co nsistent with CLIA requirements. This test has not been cher ared or approved by the U.S. Food and Drug Administration. Test Performed by: [facility] [address] [place], [place] [address] Specimen Anatomical Collection Method Collection Time Receive d Time (Source) Location / / Volume Laterality Blood specimen 09/03/2018 6:10 PM 019 (specimen) EDT 10:46 AM EDT Resulting Agency Comment Spec In Lab Tyron Kemp MD CHEMISTRY ORDERABLES Performing Organization Address City/State/ZIP Code [place] [address] Troponin (09/03/2018 6:55 AM EDT) P athologist Signature Troponin-T <0.01 0.00 - 0.00 [facility] ng/mL [facility] Comment: The 99th percentile for Troponin T is le ss than 0.01 ng/mL, any detectable cTnT concentration using this assay should be considered elevated. According to the third universal definit ion of myocardial infarction the following criteria with a clinical prese ntation consistent with acute myocardial ischemia meets the diagnosis for a myocardial infarction (DC). Detection of a rise and/or fall of [...] additional sample may be indicated. Reference: Third Mead Definition of Myocardial Infarction. Journal of the [employer] College [employer] 2012;60:1581-98 Specimen Anatomical Collection Method Collection Time Receive d Time (Source) Location / / Volume Laterality Blood specimen 09/03/2018 6:55 AM 019 7:04 (specimen) EDT AM EDT Resulting Agency Comment Spec In Lab Thom Munguia MD CHEMISTRY ORDERABLES Performing Organization Address City/State/[place] [address] (ABNORMAL) Basic Metabolic Panel (non-fasting) (09/03/2018 6:55 AM EDT) athologist Signature Glucose Lvl 140 65 - 199 [facility] mg/dL [facility] Comment: Diabetes: >=200 mg/dL plus symp toms BUN 50 (H) 8 - 18 mg/dL [facility] Creatinine 2.80 (H) 0.70 - 1.20 mg/dL [facility] Sodium 131 (L) 135 - 145 mmol/L [facility] Potassium 5.2 (H) 3.5 - 5.0 mmol/L [facility] Comment: Please note: ??Patients with WBC >100,00 0 may have falsely elevated Potassium levels. ??For accurate Potassium quantif ication in these patients send serum separator tube (gold top) for subsequent determinations. ??Contact the Clinical Chemistry Laboratory if there are any qu estions. Chloride 99 98 - 107 mmol/L [facility] CO2 19 (L) 22 - 31 mmol/L [facility] Anion Gap 13 5 - 15 mmol/L [facility] Calcium 8.4 (L) 8.5 - 10.5 mg/dL [facility] Estimated GFR 17 (L) >=60 mL/min/1.73 m?? [facility] Comment: The eGFR was calculated using the CKD-EP I equation. As with all creatinine based estimates of kidney function, eGFR values calculated with the CKD-EPI equation are not accurate in patients wi th acute kidney failure, extremes of body mass or the acutely ill. [email or web address]/DHnkf eGFR 19 (L) >=60 mL/min/1.73 m?? [facility] Comment: The eGFR was calculated using the CKD-EP I equation. As with all creatinine based estimates of kidney function, eGFR values calculated with the CKD-EPI equation are not accurate in patients wi th acute kidney failure, extremes of body mass or the acutely ill. [email or web address] Specimen Anatomical Collection Method Collection Time Receive d Time (Source) Location / / Volume Laterality Blood specimen 09/03/2018 6:55 AM 019 7:04 (specimen) EDT AM EDT Resulting Agency Comment Spec In Lab Thom Munguia MD CHEMISTRY ORDERABLES Performing Organization Address City/State/[place] [address] (ABNORMAL) BLOOD GAS 2 VENOUS (09/03/2018 5:24 AM EDT) athologist Signature pH Ward 7.35 7.32 - [facility] 7.42 [facility] pCO2 Ward 39 (L) 41 - 51 [facility] LABORATORY pO2 Ward 52 (H) 25 - 40 [facility] LABORATORY HCO3 Wrad 21.0 mmol/L [facility] BE Ward -4.6 mmol/L [facility] Hgb Blood Gas 13.4 11.7 - [facility] 15.5 gm/dL [facility] O2HB Ward 85.6 % [facility] COHB Ward 0.6 % [facility] Comment: Nonsmokers: 0.5-1.5% COHB Smokers: Variable, but usually less than 10% Toxic: 20-30% COHB Lethal: Greater than 60% COHB METHB Ward 0.5 <=1.5 % [facility] Na Whole Blood 129 (L) 135 - 145 mmol/L [facility] K Whole Blood 5.0 3.5 - 5.0 mmol/L [facility] Comment: Please note: Patients with WBC >100,000 may have falsely elevated Potassium levels. Contact the Clinical Chemistry L aboratory if there are any questions. ICa Whole Blood 1.11 (L) 1.15 - 1.33 mmol/L [facility] Comment: Note: ??Total bilirubin higher than 20 m g/dL may lead to falsely low ionized calcium. CL Whole Blood 101 98 - 107 mmol/L [facility] Gluc Whole Bld 153 65 - 199 mg/dL [facility] Comment: Diabetes: >=200 mg/dL plus symp toms Lactate WB 1.0 0.5 - 2.2 mmol/L [facility] BGas Source Venous [facility] Specimen Anatomical Collection Method Collection Time Receive d Time (Source) Location / / Volume Laterality Blood specimen 09/03/2018 5:24 AM 019 5:24 (specimen) EDT AM EDT Thom Munguia MD CHEMISTRY ORDERABLES Performing Organization Address City/[facility]/[place] [address] EKG 12 Lead (09/03/2018 3:21 AM EDT) Component Value Ref Range Test Analysis Performed Pathologis t Method Time At Signature Ventricular rate 73 BPM MUSE SYSTEM Atrial Rate 73 BPM MUSE SYSTEM P-R Interval 142 ms MUSE SYSTEM QRS Duration 82 ms MUSE SYSTEM Q-T Interval 422 ms MUSE SYSTEM QTC Calculated 464 ms MUSE SYSTEM (Bezet) Calculated P [place] 35 degrees MUSE SYSTEM Calculated R [place] 30 degrees MUSE SYSTEM Calculated T [place] 57 degrees MUSE SYSTEM INTERPRETATION Normal sinus rhythm MUSE SYSTEM Nonspecfic ST segment changes Abnormal ECG When compared with ECG of 02-SEP-2018 00:58, No significant change was found Confirmed by MD ABHI, EMELINA ([id number]) on 09/03/2018 4:17:59 PM Specimen Anatomical Collection Method Collection Time Receive d Time (Source) Location / / Volume Laterality 09/03/2018 3:21 AM 9 4:17 EDT PM EDT Vilma Mantilla APRN ECG ORDERABLES Performing Organization Address City/[facility] Code Phon e Number MUSE SYSTEM Troponin (09/03/2018 3:15 AM EDT) P athologist Signature Troponin-T <0.01 0.00 - 0.00 [facility] ng/mL [facility] Comment: The 99th percentile for Troponin T is le ss than 0.01 ng/mL, any detectable cTnT concentration using this assay should be considered elevated. According to the third universal definit ion of myocardial infarction the following criteria with a clinical prese ntation consistent with acute myocardial ischemia meets the diagnosis for a myocardial infarction (DC). Detection of a rise and/or fall of [...] additional sample may be indicated. Reference: Third Mead Definition of Myocardial Infarction. Journal of the [employer] College [employer]iology 2012;60:1581-98 Specimen Anatomical Collection Method Collection Time Receive d Time (Source) Location / / Volume Laterality Blood specimen 09/03/2018 3:15 AM 019 3:19 (specimen) EDT AM EDT Resulting Agency Comment Spec In Lab Vilma Mantilla APRN CHEMISTRY ORDERABLES Performing Organization Address City/State/[place] [address] XR Chest PA or AP 1 view (09/03/2018 2:45 AM EDT) Anatomical Region Laterality Modality Chest N/A Digital Radiography Specimen (Source) Anatomical Location Collection Method / Collectio n Time Received Time / Laterality Volume Impressions 09/03/2018 2:58 AM EDT Pulmonary vascular congestion and interstitial edema. Pleural effusions and bibasilar atelecta sis. Thank you for letting us participate in the care of this patient. For questions regarding this report, please contact e number below. ? Narrative 09/03/2018 2:58 AM EDT EXAMINATION: XR CHEST PA OR AP 1 VIEW CLINICAL HISTORY: increasing O2 demand f rom 6L/NC to 80% high flow but still desaturating to 80's cxr on 09/01 w/ pulmonary edema and pleu ral effusion; pt continue to receive IVF since yesterday due to worsening renal f unction- IVF on hold now TECHNIQUE: 1 view of the chest COMPARISON: September 01, 2018 FINDINGS: Slightly low lung volumes. Bibasilar ple ural-parenchymal opacities. Pulmonary vascular indistinctness and interstitial prominence. No pneumothorax seen. Cardiopericardial silhouette predominant ly obscured. Procedure Note Benson Garcia MD - 09/03/2018 EXAMINATION: XR CHEST PA OR AP 1 VIEW CLINICAL HISTORY: increasing O2 demand f rom 6L/NC to 80% high flow but still desaturating to 80's cxr on 09/01 w/ pulmonary edema and pleu ral effusion; pt continue to receive IVF since yesterday due to worsening renal f unction- IVF on hold now TECHNIQUE: 1 view of the chest COMPARISON: September 01, 2018 FINDINGS: Slightly low lung volumes. Bibasilar ple ural-parenchymal opacities. Pulmonary vascular indistinctness and interstitial prominence. No pneumothorax seen. Cardiopericardial silhouette predominant ly obscured. IMPRESSION Pulmonary vascular congestion and inters titial edema. Pleural effusions and bibasilar atelecta sis. Thank you for letting us participate in the care of this patient. For questions regarding this report, please contact th e number below. Vilma Mantilla APRN IMAmanda DX ORDERABLES Phosphorus (09/03/2018 12:35 AM EDT) P athologist Signature Phosphorus 4.4 2.5 - 4.5 [facility] mg/dL [facility] Specimen Anatomical Collection Method Collection Time Receive d Time (Source) Location / / Volume Laterality Blood specimen 09/03/2018 12:35 9 (specimen) AM EDT 12:39 AM EDT Resulting Agency Comment Spec In Lab Ren Hoffmann MD CHEMISTRY ORDERABLES Performing Organization Address City/State/ZIP Code Phon e Number [address] Magnesium (09/03/2018 12:35 AM EDT) P athologist Signature Magnesium 0.95 0.69 - 1.07 [facility] mmol/L [facility] Specimen Anatomical Collection Method Collection Time Receive d Time (Source) Location / / Volume Laterality Blood specimen 09/03/2018 12:35 9 (specimen) AM EDT 12:39 AM EDT Resulting Agency Comment Spec In Lab Ren Hoffmann MD CHEMISTRY ORDERABLES Performing Organization Address City/[facility]/ZIP Code Phon e Number [address] (ABNORMAL) Basic Metabolic Panel (non-fasting) (09/03/2018 12:35 AM EDT) P athologist Signature Glucose Lvl 172 65 - 199 [facility] mg/dL [facility] Comment: Diabetes: >=200 mg/dL plus symp toms BUN 48 (H) 8 - 18 mg/dL [facility] Creatinine 2.89 (H) 0.70 - 1.20 mg/dL [facility] Sodium 133 (L) 135 - 145 mmol/L [facility] Potassium 4.7 3.5 - 5.0 mmol/L [facility] Comment: Please note: ??Patients with WBC >100,00 0 may have falsely elevated Potassium levels. ??For accurate Potassium quantif ication in these patients send serum separator tube (gold top) for subsequent determinations. ??Contact the Clinical Chemistry Laboratory if there are any qu estions. Chloride 98 98 - 107 mmol/L [facility] CO2 20 (L) 22 - 31 mmol/L [facility] Anion Gap 15 5 - 15 mmol/L [facility] Calcium 8.2 (L) 8.5 - 10.5 mg/dL [facility] Estimated GFR 16 (L) >=60 mL/min/1.73 m?? [facility] Comment: The eGFR was calculated using the CKD-EP I equation. As with all creatinine based estimates of kidney function, eGFR values calculated with the CKD-EPI equation are not accurate in patients wi th acute kidney failure, extremes of body mass or the acutely ill. [email or web address]Ank eGFR 18 (L) >=60 mL/min/1.73 m?? [facility] Comment: The eGFR was calculated using the CKD-EP I equation. As with all creatinine based estimates of kidney function, eGFR values calculated with the CKD-EPI equation are not accurate in patients wi th acute kidney failure, extremes of body mass or the acutely ill. [email or web address]ULSAnkf Specimen Anatomical Collection Method Collection Time Receive d Time (Source) Location / / Volume Laterality Blood specimen 09/03/2018 12:35 9 (specimen) AM EDT 12:39 AM EDT Resulting Agency Comment Spec In Lab Ren Hoffmann MD CHEMISTRY ORDERABLES Performing Organization Address City/State/[place] [address] (ABNORMAL) Differential, Automated (09/02/2018 2:07 PM EDT) [facility] Method Time Signature Neutrophils % 87.5 % [facility] Neutr Abs (ANC) 8.46 (H) 1.70 - [facility] 6.10 [facility] x10(3)/[facility] LABORATORY Lymphocytes % 6.2 % [facility] Lymphocytes Abs 0.6 (L) 0.9 - 3.2 [facility] x10(3)/[facility] LABORATORY Monocytes % 5.9 % [facility] Monocyte Abs 0.6 0.3 - 0.9 [facility] x10(3)/[facility] LABORATORY Eosinophils % 0.0 % [facility] Eosinophils Abs 0.0 0.0 - 0.4 [facility] x10(3)/[facility] LABORATORY Basophils % 0.1 % [facility] Basophils Abs 0.0 0.0 - 0.1 [facility] x10(3)/[facility] LABORATORY Immature Gran % 0.30 % [facility] Comment: Immature granulocytes(IG's)percentage an d absolute count will include metamyelocytes, myelocytes, and promyelo cytes. Blood smears from CBCs yielding IG's will be scanned manually for concor dance. If this scan disagrees with the automated IG or if promyelocytes are not ed, a manual differential will be performed. Blanca Gran Abs 0.03 0.00 - 0.04 x10(3)/[facility] LABORATORY Specimen Anatomical Collection Method Collection Time Receive d Time (Source) Location / / Volume Laterality Blood specimen 09/02/2018 2:07 PM 019 2:12 (specimen) EDT PM EDT Resulting Agency Comment Spec In Lab Leah Cline MD HEMATOLOGY ORDERABLES Performing Organization Address City/State/ZIP Code Phon e Number [place] [id number] HOSPITAL LAB[address]ATORY Drive (ABNORMAL) Hemogram (09/02/2018 2:07 PM EDT) Analysis Performed At Patho logist Time Signature WBC 9.7 (H) 4.0 - 9.5 [facility] x10(3)/[facility] LABORATORY RBC 3.89 (L) 4.00 - [facility] 5.21 [facility] x10(6)/[facility] LABORATORY Hemoglobin 11.8 11.7 - [facility] 15.5 gm/dL [facility] LABORATORY Hematocrit 33.5 (L) 35.7 - [facility] 45.8 % [facility] MCV 86.1 82.6 - [facility] 94.4 fL [facility] LABOR[facility]ORY MCH 30.3 27.1 - [facility] 32.0 pg [facility] LABORATORY MCHC 35.2 (H) 31.7 - [facility] 35.0 gm/dL [facility] LABORATORY Platelets 229 145 - 357 [facility] x10(3)/[facility] LABORATORY RDWSD 40.4 37.0 - [facility] 46.0 [facility] LABORATORY RDWCV 12.9 11.5 - [facility] 14.1 % [facility] LABORATORY MPV 10.9 7.6 - 12.9 [facility] LABORATORY nRBC % Auto 0.0 % [facility] LABORATORY nRBC Abs Auto 0.000 0.000 - [facility] 0.000 [facility] x10(3)/[facility] LABORATORY Specimen Anatomical Collection Method Collection Time Receive d Time (Source) Location / / Volume Laterality Blood specimen 09/02/2018 2:07 PM 019 2:12 (specimen) EDT PM EDT Resulting Agency Comment Spec In Lab Leah Cline MD HEMATOLOGY ORDERABLES Performing Organization Address [facility] Phon e Number [address] (ABNORMAL) Phosphorus (09/02/2018 3:29 AM EDT) P athologist Signature Phosphorus 6.2 (H) 2.5 - 4.5 [facility] mg/dL [facility] Specimen Anatomical Collection Method Collection Time Receive d Time (Source) Location / / Volume Laterality Blood specimen 09/02/2018 3:29 AM 019 3:33 (specimen) EDT AM EDT Resulting Agency Comment Spec In Lab Liliana Echeverria MD CHEMISTRY ORDERABLES Performing Organization Address City/[facility]/ZIP [facility] [place] [address] Magnesium (09/02/2018 3:29 AM EDT) P athologist Signature Magnesium 0.97 0.69 - 1.07 [facility] mmol/L [facility] LABORATORY Specimen Anatomical Collection Method Collection Time Receive d Time (Source) Location / / Volume Laterality Blood specimen 09/02/2018 3:29 AM 019 3:33 (specimen) EDT AM EDT Resulting Agency Comment Spec In Lab Liliana Echeverria MD CHEMISTRY ORDERABLES Performing Organization Address City/State/[place] [address] (ABNORMAL) Basic Metabolic Panel (non-fasting) (09/02/2018 3:29 AM EDT) P athologist Signature Glucose Lvl 142 65 - 199 [facility] mg/dL [facility] LABORATORY Comment: Diabetes: >=200 mg/dL plus symp toms BUN 36 (H) 8 - 18 mg/dL [facility] LABORATORY Creatinine 2.71 (H) 0.70 - 1.20 mg/dL [facility] LABORATORY Sodium 134 (L) 135 - 145 mmol/L [facility] LABORATORY Potassium 4.8 3.5 - 5.0 mmol/L [facility] LABORATORY Comment: Please note: ??Patients with WBC >100,00 0 may have falsely elevated Potassium levels. ??For accurate Potassium quantif ication in these patients send serum separator tube (gold top) for subsequent determinations. ??Contact the Clinical Chemistry Laboratory if there are any qu estions. Chloride 98 98 - 107 mmol/L [facility] LABORATORY CO2 20 (L) 22 - 31 mmol/L [facility] LABORATORY Anion Gap 16 (H) 5 - 15 mmol/L [facility] LABORATORY Calcium 8.5 8.5 - 10.5 mg/dL [facility] LABORATORY Estimated GFR 17 (L) >=60 mL/min/1.73 m?? [facility] LABORATORY Comment: The eGFR was calculated using the CKD-EP I equation. As with all creatinine based estimates of kidney function, eGFR values calculated with the CKD-EPI equation are not accurate in patients wi th acute kidney failure, extremes of body mass or the acutely ill. [email or web address][employer]/DHnkf eGFR 20 (L) >=60 mL/min/1.73 m?? [facility] LABORATORY Comment: The eGFR was calculated using the CKD-EP I equation. As with all creatinine based estimates of kidney function, eGFR values calculated with the CKD-EPI equation are not accurate in patients wi th acute kidney failure, extremes of body mass or the acutely ill. [email or web address].[employer]/DHMCnkf Specimen Anatomical Collection Method Collection Time Receive d Time (Source) Location / / Volume Laterality Blood specimen 09/02/2018 3:29 AM 019 3:33 (specimen) EDT AM EDT Resulting Agency Comment Spec In Lab Liliana Echeverria MD CHEMISTRY ORDERABLES Performing Organization Address City/[facility]/[place] [address] EKG 12 Lead (09/02/2018 12:58 AM EDT) Component Value Ref Range Test Analysis Performed Pathologis t Method Time At Signature Ventricular rate 70 BPM MUSE SYSTEM Atrial Rate 70 BPM MUSE SYSTEM P-R Interval 146 ms MUSE SYSTEM QRS Duration 84 ms MUSE SYSTEM Q-T Interval 430 ms MUSE SYSTEM QTC Calculated 464 ms MUSE SYSTEM (Bezet) Calculated P [place] 46 degrees MUSE SYSTEM Calculated R [place] 20 degrees MUSE SYSTEM Calculated T [place] 30 degrees MUSE SYSTEM INTERPRETATION Normal sinus rhythm MUSE SYSTEM Nonspecific ST and T wave abnormality Abnormal ECG When compared with ECG of 29-AUG-2018 21:01, Nonspecific T wave abnormality now evident in Anterior leads Nonspecific T wave abnormality no longer evident in Lateral leads Confirmed by MD VILLALBA JOHN ([id number]) on 09/02/2018 7:55:05 PM Specimen Anatomical Collection Method Collection Time Receive d Time (Source) Location / / Volume Laterality 09/02/2018 12:58 09/02/2018 7:55 AM EDT PM EDT Vilma Mantilla APRN ECG ORDERABLES Performing Organization Address City/[facility] Phon e Number MUSE SYSTEM XR Chest PA or AP 1 view (09/01/2018 6:06 PM EDT) Anatomical Region Laterality Modality Chest N/A Digital Radiography Specimen (Source) Anatomical Location Collection Method / Collectio n Time Received Time / Laterality Volume Impressions 09/01/2018 6:12 PM EDT Cardiomegaly with pulmonary edema, bilateral pleural effusions and bibasilar atelectasis. Thank you for letting us participate in the care of this patient. For questions regarding this report, please contact e number below. ? Narrative 09/01/2018 6:12 PM EDT EXAMINATION: XR CHEST PA OR AP 1 VIEW CLINICAL HISTORY: Worsening hypoxia; renato l pulmonary edema TECHNIQUE: 1 view of the chest COMPARISON: None FINDINGS: The heart is enlarged. There are bilater al pleural effusions and vascular marginal blurring consistent with pulmon marija edema. There is airless lung at both lung bases medially, most likely lower l obe atelectasis secondary to the pleural effusions. Procedure Note Spike To MD - 09/01/2018Format ting of this note might be different from the original. EXAMINATION: XR CHEST PA OR AP 1 VIEW CLINICAL HISTORY: Worsening hypoxia; renato l pulmonary edema TECHNIQUE: 1 view of the chest COMPARISON: None FINDINGS: The heart is enlarged. There are bilater al pleural effusions and vascular marginal blurring consistent with pulmon marija edema. There is airless lung at both lung bases medially, most likely lower l obe atelectasis secondary to the pleural effusions. IMPRESSION Cardiomegaly with pulmonary edema, bilat eral pleural effusions and bibasilar atelectasis. Thank you for letting us participate in the care of this patient. For questions regarding this report, please contact e number below. Darshan Jasso MD IMG DX ORDERABLES IR OR VASC Aniogram Image Storage Only (09/01/2018 4:35 PM EDT) Specimen (Source) Anatomical Location Collection Method / Collectio n Time Received Time / Laterality Volume Narrative RAD - 09/01/2018 4:34 PM EDT This exam is auto-finalizing. It's purpo se is for storage only. Greyson Chen MD IMG FILM LIBRARY ORDERABLES Performing Organization Address City/State/ZIP Code Phon e Number DH RAD DH RAD [place], [place] Magnesium (09/01/2018 12:20 AM EDT) P athologist Signature Magnesium 0.86 0.69 - 1.07 [facility] mmol/L [facility] LABORATORY Specimen Anatomical Collection Method Collection Time Receive d Time (Source) Location / / Volume Laterality Blood specimen 09/01/2018 12:20 9 (specimen) AM EDT 12:32 AM EDT Resulting Agency Comment Spec In Lab Ren Hoffmann MD CHEMISTRY ORDERABLES Performing Organization Address City/[facility]/[place] [address] (ABNORMAL) Hemogram (09/01/2018 12:20 AM EDT) Analysis Performed At Patho logist Time Signature WBC 6.7 4.0 - 9.5 [facility] x10(3)/[facility] LABORATORY RBC 3.79 (L) 4.00 - [facility] 5.21 [facility] x10(6)/[facility] LABORATORY Hemoglobin 11.5 (L) 11.7 - [facility] 15.5 gm/dL [facility] LABORATORY Hematocrit 32.9 (L) 35.7 - [facility] 45.8 % [facility] LABORATORY MCV 86.8 82.6 - [place] 94.4 [facility] LABORATORY MCH 30.3 27.1 - [place] [place] 32.0 pg [facility] LABORATORY MCHC 35.0 31.7 - [facility] 35.0 gm/dL [facility] LABORATORY Platelets 220 145 - 357 [facility] x10(3[facility] LABORATORY RDWSD 41.0 37.0 - [facility] 46.0 [facility] LABORATORY RDWCV 12.9 11.5 - [facility] 14.1 % [facility] LABORATORY MPV 11.0 7.6 - 12.9 [facility] LABORATORY nRBC % Auto 0.0 % [facility] LABORATORY nRBC Abs Auto 0.000 0.000 - [facility] [place] 0.000 [facility] x10(3)/[facility] LABORATORY Specimen Anatomical Collection Method Collection Time Receive d Time (Source) Location / / Volume Laterality Blood specimen 09/01/2018 12:20 9 (specimen) AM EDT 12:32 AM EDT Resulting Agency Comment Spec In Lab Ren Hoffmann MD HEMATOLOGY ORDERABLES Performing Organization Address City/State/[place] [address] (ABNORMAL) Basic Metabolic Panel (non-fasting) (09/01/2018 12:20 AM EDT) athologist Signature Glucose Lvl 117 65 - 199 [facility] mg/dL [facility] LABORATORY Comment: Diabetes: >=200 mg/dL plus symp toms BUN 24 (H) 8 - 18 mg/dL [facility] LABORATORY Creatinine 2.17 (H) 0.70 - 1.20 mg/dL [facility] LABORATORY Sodium 134 (L) 135 - 145 mmol/L [facility] LABORATORY Potassium 4.1 3.5 - 5.0 mmol/L [facility] LABORATORY Comment: Please note: ??Patients with WBC >100,00 0 may have falsely elevated Potassium levels. ??For accurate Potassium quantif ication in these patients send serum separator tube (gold top) for subsequent determinations. ??Contact the Clinical Chemistry Laboratory if there are any qu estions. Chloride 99 98 - 107 mmol/L [facility] LABORATORY CO2 23 22 - 31 mmol/L [facility] LABOR[facility] Anion Gap 12 5 - 15 mmol/L [facility] LABORATORY Calcium 7.8 (L) 8.5 - 10.5 mg/dL [facility] LABORATORY Estimated GFR 23 (L) >=60 mL/min/1.73 m?? [facility]OR[facility] Comment: The eGFR was calculated using the CKD-EP I equation. As with all creatinine based estimates of kidney function, eGFR values calculated with the CKD-EPI equation are not accurate in patients wi th acute kidney failure, extremes of body mass or the acutely ill. [email or web address] TULSAnkf eGFR 26 (L) >=60 mL/min/1.73 m?? [facility] LABORATORY Comment: The eGFR was calculated using the CKD-EP I equation. As with all creatinine based estimates of kidney function, eGFR values calculated with the CKD-EPI equation are not accurate in patients wi th acute kidney failure, extremes of body mass or the acutely ill. [email or web address] TULSAnkf Specimen Anatomical Collection Method Collection Time Receive d Time (Source) Location / / Volume Laterality Blood specimen 09/01/2018 12:20 9 (specimen) AM EDT 12:32 AM EDT Resulting Agency Comment Spec In Lab Ren Hoffmann MD CHEMISTRY ORDERABLES Performing Organization Address City/State/ZIP Code Phon e Number [place] [phone] HOSPITAL LABORATORY Drive (ABNORMAL) Hemogram (08/31/2018 12:15 AM EDT) Analysis Performed At Patho logist Time Signature WBC 8.1 4.0 - 9.5 [facility] x[facility](3[facility] LABORATORY RBC 4.02 4.00 - [place] [place] 5.21 [facility] x10(6)/[facility] LABORATORY Hemoglobin 12.1 11.7 - [facility] 15.5 gm/dL [facility] LABORATORY Hematocrit 34.6 (L) 35.7 - [facility] 45.8 % [facility] LABORATORY MCV 86.1 82.6 - [facility] 94.4 [facility] LABORATORY MCH 30.1 27.1 - [place] 32.0 pg [facility] LABORATORY MCHC 35.0 31.7 - [facility] 35.0 gm/dL [facility] LABORATORY Platelets 235 145 - 357 [facility] x[facility](3[facility] LABORATORY RDWSD 40.6 37.0 - [facility] 46.0 [facility] LABORATORY RDWCV 13.0 11.5 - [facility] 14.1 % [facility] LABORATORY MPV 10.9 7.6 - 12.9 [facility] LABORATORY nRBC % Auto 0.0 % [facility] LABORATORY nRBC Abs Auto 0.000 0.000 - [facility] 0.000 [facility] x10(3)/[facility] LABORATORY Specimen Anatomical Collection Method Collection Time Receive d Time (Source) Location / / Volume Laterality Blood specimen 08/31/2018 12:15 9 (specimen) AM EDT 12:18 AM EDT Resulting Agency Comment Spec In Lab Ren Hoffmann MD HEMATOLOGY ORDERABLES Performing Organization Address City/[facility]/ZIP Code Phon e Number [address] Phosphorus (08/31/2018 12:15 AM EDT) athologist Signature Phosphorus 3.5 2.5 - 4.5 [facility] mg/dL [facility] LABORATORY Specimen Anatomical Collection Method Collection Time Receive d Time (Source) Location / / Volume Laterality Blood specimen 08/31/2018 12:15 9 (specimen) AM EDT 12:18 AM EDT Resulting Agency Comment Spec In Lab Ren Hoffmann MD CHEMISTRY ORDERABLES Performing Organization Address City/[facility]/ZIP Code Phon e Number [address] Magnesium (08/31/2018 12:15 AM EDT) athologist Signature Magnesium 0.75 0.69 - 1.07 [facility] mmol/L [facility] LABORATORY Specimen Anatomical Collection Method Collection Time Receive d Time (Source) Location / / Volume Laterality Blood specimen 08/31/2018 12:15 9 (specimen) AM EDT 12:18 AM EDT Resulting Agency Comment Spec In Lab Ren Hoffmann MD CHEMISTRY ORDERABLES Performing Organization Address City/[facility]/ZIP [facility] Phon e Number [address] (ABNORMAL) Basic Metabolic Panel (non-fasting) (08/31/2018 12:15 AM EDT) P athologist Signature Glucose Lvl 128 65 - 199 [facility] mg/dL [facility] Comment: Diabetes: >=200 mg/dL plus symp toms BUN 21 (H) 8 - 18 mg/dL [facility] LABORATORY Creatinine 1.93 (H) 0.70 - 1.20 mg/dL [facility] LABOR[facility]ORY Sodium 135 135 - 145 mmol/L [facility] LABORATORY Potassium 3.9 3.5 - 5.0 mmol/L [facility] LABORATORY Comment: Please note: ??Patients with WBC >100,00 0 may have falsely elevated Potassium levels. ??For accurate Potassium quantif ication in these patients send serum separator tube (gold top) for subsequent determinations. ??Contact the Clinical Chemistry Laboratory if there are any qu estions. Chloride 98 98 - 107 mmol/L [facility]OR[facility]ORY CO2 23 22 - 31 mmol/L [facility] Anion Gap 14 5 - 15 mmol/L [facility] LABORATORY Calcium 7.9 (L) 8.5 - 10.5 mg/dL [facility] LABORATORY Estimated GFR 26 (L) >=60 mL/min/1.73 m?? [facility] Comment: The eGFR was calculated using the CKD-EP I equation. As with all creatinine based estimates of kidney function, eGFR values calculated with the CKD-EPI equation are not accurate in patients wi th acute kidney failure, extremes of body mass or the acutely ill. [email or web address] eGFR 30 (L) >=60 mL/min/1.73 m?? [facility] Comment: The eGFR was calculated using the CKD-EP I equation. As with all creatinine based estimates of kidney function, eGFR values calculated with the CKD-EPI equation are not accurate in patients wi th acute kidney failure, extremes of body mass or the acutely ill. [email or web address] Specimen Anatomical Collection Method Collection Time Receive d Time (Source) Location / / Volume Laterality Blood specimen 08/31/2018 12:15 9 (specimen) AM EDT 12:18 AM EDT Resulting Agency Comment Spec In Lab Ren Hoffmann MD CHEMISTRY ORDERABLES Performing Organization Address City/State/ZIP Code Phon e Number [place] [id number] HOSPITAL LABORATORY Drive Duplex Study Renal Arteries, Bilat (08/30/2018 7:39 PM EDT) Component Value Ref Test Analysis Performed At [facility] gist Range Method Time Signature VB Text Department: Vascular Surgery Lab VASCUBASE Report Patient: [id number] (PERTTY HARMON) CPT: 01960 ICD10: I70.1 Referring Physician: LILIANA ECHEVERRIA ?? Indications: HTN crisis ICD10 Diagnosis Code: I70.1 Findings: Syl Renal Aorta ? PSV (cm/s): 39 ? EDV (cm/s): 0 Renal Artery Mid, Right ? PSV (cm/s): 45 ? EDV (cm/s): 17 ? RAR: 1.2 ? RI: 0.62 Renal Artery Distal, Right ? PSV (cm/s): 40 ? EDV (cm/s): 17 ? RAR: 1.0 ? RI: 0.58 Mid Pole Renal Parenchyma, Right ? PSV (cm/s): 13 ? EDV (cm/s): 0 ? RI: 1.00 Lower Pole Renal Parenchyma, Right ? PSV (cm/s): 13 ? EDV (cm/s): 0 ? RI: 1.00 Renal Hilum, Right ? AT (ms): 175 Kidney Length, Right ? Length (cm): 9.9 Renal Vein, Right ? Patent: Patent Renal Artery Ostium, Left ? PSV (cm/s): 177 ? EDV (cm/s): 17 ? RAR: 4.5 ? RI: 0.91 Renal Artery Proximal, Left ? PSV (cm/s): 177 ? EDV (cm/s): 12 ? RAR: 4.5 ? RI: 0.93 Renal Artery Mid, Left ? PSV (cm/s): 95 ? EDV (cm/s): 10 ? RAR: 2.4 ? RI: 0.90 Renal Artery Distal, Left ? PSV (cm/s): 60 ? EDV (cm/s): 0 ? RAR: 1.5 ? RI: 1.00 Mid Pole Renal Parenchyma, Left ? PSV (cm/s): 61 ? EDV (cm/s): 14 ? RI: 0.77 Lower Pole Renal Parenchyma, Left ? PSV (cm/s): 38 ? EDV (cm/s): 8 ? RI: 0.79 Renal Hilum, Left ? AT (ms): 34 Kidney Length, Left ? Length (cm): 10.4 Renal Vein, Left ? Patent: Patent Interpretation: Patent aortic aneurysm with mural thrombus, maxi mum perirenal diameter is 3.6 cm. Previous study on 02/24/18 was 3.1 cm with what ap pears to be less mural thrombus compared to today's exam. Right: Suspect proximal renal artery occlusion w ith reconstitution of the mid segment. Doppler waveforms are consisten t with abnormally elevated parenchymal resistance. Significant progression of s tenosis compared to the previous exam. Left: Patent main renal artery with no e vidence of hemodynamically significant stenosis. Higher velocities (255 cm/s) were not seen on toda y's exam. No significant change compared to previous exam. Dr. Moody was notified of the results. Electronically Signed by: LEAH PEREZ on 2018-08-31 02:05:36 PM VB Text End of Report [facility] Report Specimen (Source) Anatomical Collection Method Collection Time Re ceived Time Location / / Volume Laterality 08/30/2018 7:39 PM EDT Liliana Echeverria MD VASCULAR ORDERABLES Performing Organization Address City/State/ZIP Code Phon e Number [facility] ECHOCARDIOGRAM COMPLETE (08/30/2018 11:27 AM EDT) P athologist Signature EF 54 [facility] Anatomical Region Laterality Modality Other Specimen (Source) Anatomical Location Collection Method / Collectio n Time Received Time / Laterality Volume 08/30/2018 Narrative 08/30/2018 12:04 PM EDT Procedure: ?Transthoracic Echocardiogram Patient: ?HARMON PRETTY B ? (Age): 1950(67y) Med Rec#: ? [id number] ?Sex: ?F ? Site Loc: ? [facility] ?Ht / Wt: ??155(cm)/47(kg) Pt. Loc: ?ICU ? BSA: ?1.43 Study Date: ?? 08/30/2018 ?Pt. Type: Outpatient Tape: ? 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 155/63 SUMMARY: 1. Mild concentric left ventricular hype rtrophy is observed. ??There is normal global left ventricular systolic function. ??The quantitative left ventricular ejection fraction by biplane Whitley's method is 54%. ??There are no left ventricular segmental wall m otion abnormalities. 2. Doppler assessment is consistent with elevated left sided filling pressure. 3. Right ventricular chamber size, wall thickness, and systolic function are within normal limits. 4. There is no hemodynamically significa nt valve disease. 5. See remainder of report for additiona l findings. Findings ? : Left Ventricle: ? The left ventricul ar chamber size is normal. ?Mild concentric left ventricular h ypertrophy is observed. ?There is no evidence of LVOT obstr uction. ?No ventricular septal defect is vi sualized. ?There is normal global left ventri cular systolic function. ?The quantitative left ventricular ejection fraction by biplane Whitley's method is 54%. ?There are no left ventricular segm ental wall motion abnormalities. ?Doppler assessment is consistent w ith elevated left sided filling pressure. Left Atrium: ? The left atrium is no rmal in size. (30ml/m2) ?No atrial septal defect is visuali zed. Right Ventricle: ? Right ventricular chamber size, wall thickness, and systolic function are within normal limi ts. Right Atrium: ? The right atrium khoa ears normal. Aortic Valve: ? The aortic valve is trileaflet. The leaflets are thin with normal excursion. There is no aorti c stenosis or regurgitation present. Mitral Valve: ? There is thickening of the anterior mitral valve leaflet. ?There is no evidence of mitral sara ve leaflet prolapse. ?There is no evidence of mitral cornelius nosis. ?There is mild (1+/4+) mitral regur gitation present. Tricuspid Valve: ? The tricuspid sara ve appears normal in structure and function. ?There is trace tricuspid regurgita tion present. Pulmonic Valve: ? The pulmonic valve appears normal in structure and function. Pericardium: ? The pericardium appea rs normal [...] the inferior vena cava dimension. Misc: ? See remainder of report for additional findings. ?Two-dimensional echo, spectral Dop pler and color Doppler performed. Chambers 2D ?Value ?Units (Range) ? IVSd (2D) ? 1.2 ?cm ? LVPWd (2D) ?1.2 ?cm ? IVS:LVPW ratio (2D) 1 ?ratio ? RWT (2D) ?0.5 ?ratio ? RWT PW (2D) ? 0.5 ?ratio ? LVIDd (2D) ?4.6 ?cm ? LVIDs (2D) ?3.2 ?cm ? LVIDd (2D) index ?3.2 ?cm/m2 ? LVIDs (2D) index ?2.2 ?cm/m2 ? LV FS (2D) ?31 ? % ? EF Teichholz (2D) ?? 59 ? % ? Ao root diameter (2D2.8 ?cm (2.1 - 3.6) ? Ascending Ao ?2.8 ?cm (2 - 3.5) ? Volumes/Mass ?Value ?Units (Range) ? LA Area 4 CH ?16 ? cm2 (<21) ? RA AREA 4CH ? 13.2 ? cm2 ? LA ESV BP (MOD) inde30 ? ml/m2 ? LV ESV SP 4CH (MOD) 44.4 ? ml ? LV ESV SP 2CH (MOD) 54.5 ? ml ? LV EDV BP ? 106 ?ml ? LV ESV BP ? 48.8 ? ml ? LV EDV BP index ? 74.1 ? ml/m2 ? LV ESV BP index ? 34.1 ? ml/m2 ? BP EF (MOD) ? 54 ? % ? LV mass (2D) ?200.3 ?g ? LV mass (2D) index ??140.1 ?g/m2 ? Diastolic/Systolic Function ?Value ?Units (Range) ? MV E-wave Vmax ?1.4 ?m/sec ? MV deceleration [id number] ?msec ? MV A-wave Vmax ?1.2 ?m/sec ? MV E:A ratio ?1.1 ?ratio ? LV E:e' septal ratio18.9 ? ratio ? LV E:e' lateral rati22.7 ? ratio ? Tricuspid Valve ?Value ?Units (Range) ? TAPSE ? 1.9 ?cm ? RV lateral s' Vmax ??0.1 ?m/sec ? TR Vmax ? 2.6 ?m/sec ? TR peak gradient ?27 ? mmHg ? RAP ? 3 ?mmHg ? RVSP ?30 ? mmHg ? Wall Motion: Segment Name ?Rest ? Base-Anteroseptal ?? Normal ? Base-Anterior ? Normal ? Base-Anterolateral ??Normal ? Base-Posterolateral Normal ? Base-Inferior ? Normal ? Base-Inferoseptal ?? Normal ? Mid-Anteroseptal ?Normal ? Mid-Anterior ?Normal ? Mid-Anterolateral ?? Normal ? Mid-Posterolateral ??Normal ? Mid-Inferior ?Normal ? Mid-Inferoseptal ?Normal ? [place]-Septal ? Normal ? [place]-Anterior ? Normal ? [place]-Lateral ?Normal ? [place]-Inferior ? Normal ? [place]-Tip ?Normal ? This report has been electronically sign ed by: _ Quinten Nance M.D. ? 08/30/2018 12:04:09 Images reviewed and interpretation verif ied [facility] Cardiac Ultrasound Laboratory Procedure Note Quinten Nance MD - 08/30/2018Format ting of this note might be different from the original. Procedure: Transthoracic Echocardiogram Patient: TERELL Eckert (Age): [birth year] 9(67y) Med Rec#: [id number] Sex: F Site Loc: [facility] Ht / Wt: 155(cm)/47(kg) Pt. Loc: ICU BSA: 1.43 Study Date: 08/30/2018 Pt. 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 Mild concentric left ventricular hype rtrophy is observed. There is normal global left ventricular systolic function. The quantitative left ventricular ejection fraction by biplane Whitley's method is 54%. There are no left ventricular segmental wall m otion abnormalities. 2. Doppler assessment is consistent with elevated left sided filling pressure. 3. Right ventricular chamber size, wall thickness, and systolic function are within normal limits. 4. There is no hemodynamically significa nt valve disease. 5. See remainder of report for additiona l findings. Findings : Left Ventricle: The left ventricular lawson mber size is normal. Mild concentric left ventricular hypert rophy is observed. There is no evidence of LVOT obstructio n. No ventricular septal defect is visuali zed. There is normal global left ventricular systolic function. The quantitative left ventricular eject ion fraction by biplane Whitley's method is 54%. There are no left ventricular segmental wall motion abnormalities. Doppler assessment is consistent with e levated left sided filling pressure. Left Atrium: The left atrium is normal i n size. (30ml/m2) No atrial septal defect is visualized. Right Ventricle: Right ventricular chamb er size, wall thickness, and systolic function are within normal limi ts. Right Atrium: The right atrium appears n ormal. Aortic Valve: The aortic valve is trilea flet. The leaflets are thin with normal excursion. There is no aorti c stenosis or regurgitation present. Mitral Valve: There is thickening of the anterior mitral valve leaflet. There is no evidence of mitral valve le aflet prolapse. There is no evidence of mitral stenosis . There is mild (1+/4+) mitral regurgitat ion present. Tricuspid Valve: The tricuspid valve khoa ears normal in structure and function. There is trace tricuspid regurgitation present. Pulmonic Valve: The pulmonic valve appea rs normal in structure and function. Pericardium: The pericardium appears nor mal and there is no evidence of a pericardial effusion. Aorta: The aortic root is normal in size . The ascending aorta is normal in size. There is no evidence of coarctation of the aorta. Pulmonary Artery: The main pulmonary art mikie appears normal. Venous: The inferior vena cava appears n ormal in size. There is a greater than 50% respiratory change in the inferior vena cava dimension. Misc: See remainder of report for additi onal findings. Two-dimensional echo, spectral Doppler and color Doppler performed. Chambers 2D Value Units (Range) IVSd (2D) 1.2 cm LVPWd (2D) 1.2 cm IVS:LVPW ratio (2D) 1 ratio RWT (2D) 0.5 ratio RWT PW (2D) 0.5 ratio LVIDd (2D) 4.6 cm LVIDs (2D) 3.2 cm LVIDd (2D) index 3.2 cm/m2 LVIDs (2D) index 2.2 cm/m2 LV FS (2D) 31 % EF Teichholz (2D) 59 % Ao root diameter (2D2.8 cm (2.1 - 3.6) Ascending Ao 2.8 cm (2 - 3.5) Volumes/Mass Value Units (Range) LA Area 4 CH 16 cm2 (<21) RA AREA 4CH 13.2 cm2 LA ESV BP (MOD) inde30 ml/m2 LV ESV SP 4CH (MOD) 44.4 ml LV ESV SP 2CH (MOD) 54.5 ml LV EDV BP 106 ml LV ESV BP 48.8 ml LV EDV BP index 74.1 ml/m2 LV ESV BP index 34.1 ml/m2 BP EF (MOD) 54 % LV mass (2D) 200.3 g LV mass (2D) index 140.1 g/m2 Diastolic/Systolic Function Value Units (Range) MV E-wave Vmax 1.4 m/sec MV deceleration [id number] msec MV A-wave Vmax 1.2 m/sec MV E:A ratio 1.1 ratio LV E:e' septal ratio18.9 ratio LV E:e' lateral rati22.7 ratio Tricuspid Valve Value Units (Range) TAPSE 1.9 cm RV lateral s' Vmax 0.1 m/sec TR Vmax 2.6 m/sec TR peak gradient 27 mmHg RAP 3 mmHg RVSP 30 mmHg Wall Motion: Segment Name Rest Base-Anteroseptal Normal Base-Anterior Normal Base-Anterolateral Normal Base-Posterolateral Normal Base-Inferior Normal Base-Inferoseptal Normal Mid-Anteroseptal Normal Mid-Anterior Normal Mid-Anterolateral Normal Mid-Posterolateral Normal Mid-Inferior Normal Mid-Inferoseptal Normal [place]-Septal Normal [place]-Anterior Normal [place]-Lateral Normal [place]-Inferior Normal [place]-Tip Normal This report has been electronically sign ed by: _ Quinten Nance M.D. 08/30/2018 12:04: 09 Images reviewed and interpretation verif ied [facility] Cardiac Ultrasound Laboratory Liliana Echeverria MD ECHO ORDERABLES Magnesium (08/30/2018 8:00 AM EDT) P athologist Signature Magnesium 0.80 0.69 - 1.07 [facility] mmol/L [facility] Specimen Anatomical Collection Method Collection Time Receive d Time (Source) Location / / Volume Laterality Blood specimen 08/30/2018 8:00 AM 019 8:09 (specimen) EDT AM EDT Resulting Agency Comment Spec In Lab Ren Hoffmann MD CHEMISTRY ORDERABLES Performing Organization Address City/State/[place] [address] (ABNORMAL) Basic Metabolic Panel (non-fasting) (08/30/2018 8:00 AM EDT) athologist Signature Glucose Lvl 100 65 - 199 [facility] mg/dL [facility] Comment: Diabetes: >=200 mg/dL plus symp toms BUN 22 (H) 8 - 18 mg/dL [facility] Creatinine 1.88 (H) 0.70 - 1.20 mg/dL [facility] Sodium 138 135 - 145 mmol/L [facility] Potassium 3.6 3.5 - 5.0 mmol/L [facility] Comment: Please note: ??Patients with WBC >100,00 0 may have falsely elevated Potassium levels. ??For accurate Potassium quantif ication in these patients send serum separator tube (gold top) for subsequent determinations. ??Contact the Clinical Chemistry Laboratory if there are any qu estions. Chloride 103 98 - 107 mmol/L [facility] CO2 24 22 - 31 mmol/L [facility] Anion Gap 11 5 - 15 mmol/L [facility] Calcium 8.4 (L) 8.5 - 10.5 mg/dL [facility] Estimated GFR 27 (L) >=60 mL/min/1.73 m?? [facility] Comment: The eGFR was calculated using the CKD-EP I equation. As with all creatinine based estimates of kidney function, eGFR values calculated with the CKD-EPI equation are not accurate in patients wi th acute kidney failure, extremes of body mass or the acutely ill. [email or web address]kf eGFR 31 (L) >=60 mL/min/1.73 m?? [facility] Comment: The eGFR was calculated using the CKD-EP I equation. As with all creatinine based estimates of kidney function, eGFR values calculated with the CKD-EPI equation are not accurate in patients wi th acute kidney failure, extremes of body mass or the acutely ill. [email or web address] Specimen Anatomical Collection Method Collection Time Receive d Time (Source) Location / / Volume Laterality Blood specimen 08/30/2018 8:00 AM 019 8:09 (specimen) EDT AM EDT Resulting Agency Comment Spec In Lab Ren Hoffmann MD CHEMISTRY ORDERABLES Performing Organization Address [facility] [place] [address] EKG 12 Lead (08/29/2018 9:01 PM EDT) Component Value Ref Range Test Analysis Performed Pathologis t Method Time At Signature Ventricular rate 85 BPM MUSE SYSTEM Atrial Rate 85 BPM MUSE SYSTEM P-R Interval 148 ms MUSE SYSTEM QRS Duration 84 ms MUSE SYSTEM Q-T Interval 400 ms MUSE SYSTEM QTC Calculated 476 ms MUSE SYSTEM (Bezet) Calculated P [place] 58 degrees MUSE SYSTEM Calculated R [place] 34 degrees MUSE SYSTEM Calculated T [place] 71 degrees MUSE SYSTEM INTERPRETATION Normal sinus rhythm MUSE SYSTEM Possible Left atrial enlargement Left ventricular hypertrophy with repolarization abnormality Abnormal ECG No previous ECGs available Confirmed by MD Oliver, Frantz Preston ([id number]) on 08/30/2018 7:51:4 6 AM Specimen Anatomical Collection Method Collection Time Receive d Time (Source) Location / / Volume Laterality 08/29/2018 9:01 PM 9 7:51 EDT AM EDT Liliana Echeverria MD ECG ORDERABLES Performing Organization Address City/[facility]/ZIP Code Phon e Number MUSE SYSTEM CK (08/29/2018 8:43 PM EDT) P athologist Signature CK, Total 61 0 - 160 [facility] unit/L [facility] Specimen Anatomical Collection Method Collection Time Receive d Time (Source) Location / / Volume Laterality Blood specimen Venous Draw / 08/29/2018 8:43 PM 2018 8:50 (specimen) Unknown EDT PM EDT Resulting Agency Comment Spec In Lab Liliana Echeverria MD CHEMISTRY ORDERABLES Performing Organization Address City/[facility]/ZIP Code Phon e Number [address] Troponin (08/29/2018 8:43 PM EDT) P athologist Signature Troponin-T <0.01 0.00 - 0.00 [facility] ng/mL [facility] Comment: The 99th percentile for Troponin T is le ss than 0.01 ng/mL, any detectable cTnT concentration using this assay should be considered elevated. According to the third universal definit ion of myocardial infarction the following criteria with a clinical prese ntation consistent with acute myocardial ischemia meets the diagnosis for a myocardial infarction (DC). Detection of a rise and/or fall of [...] additional sample may be indicated. Reference: Third Mead Definition of Myocardial Infarction. Journal of the [place] [employer] 2012;60:1581-98 Specimen Anatomical Collection Method Collection Time Receive d Time (Source) Location / / Volume Laterality Blood specimen Venous Draw / 08/29/2018 8:43 PM 2018 8:50 (specimen) Unknown EDT PM EDT Resulting Agency Comment Spec In Lab Liliana Echeverria MD CHEMISTRY ORDERABLES Performing Organization Address City/[facility]/[place] [address] (ABNORMAL) Differential, Automated (08/29/2018 8:43 PM EDT) Patholo gist Method Time Signature Neutrophils % 61.3 % [facility] Neutr Abs (ANC) 5.36 1.70 - [facility] 6.10 [facility] x10(3)/[facility] LABORATORY Lymphocytes % 18.9 % [facility] Lymphocytes Abs 1.7 0.9 - 3.2 [facility] x10(3)/[facility] LABORATORY Monocytes % 11.7 % [facility] Monocyte Abs 1.0 (H) 0.3 - 0.9 [facility] x10(3)/[facility] LABORATORY Eosinophils % 6.8 % [facility] Eosinophils Abs 0.6 (H) 0.0 - 0.4 [facility] x10(3)/[facility] LABORATORY Basophils % 1.1 % [facility] Basophils Abs 0.1 0.0 - 0.1 [facility] x10(3)/[facility] LABORATORY Immature Gran % 0.20 % [facility] Comment: Immature granulocytes(IG's)percentage an d absolute count will include metamyelocytes, myelocytes, and promyelo cytes. Blood smears from CBCs yielding IG's will be scanned manually for concor dance. If this scan disagrees with the automated IG or if promyelocytes are not ed, a manual differential will be performed. Blanca Gran Abs 0.02 0.00 - 0.04 x10(3)/[facility] LABORATORY Specimen Anatomical Collection Method Collection Time Receive d Time (Source) Location / / Volume Laterality Blood specimen 08/29/2018 8:43 PM 019 8:50 (specimen) EDT PM EDT Resulting Agency Comment Spec In Lab Liliana Echeverria MD HEMATOLOGY ORDERABLES Performing Organization Address City/State/[place] [address] (ABNORMAL) Hemogram (08/29/2018 8:43 PM EDT) Analysis Performed At Patho logist Time Signature WBC 8.8 4.0 - 9.5 [facility] x10(3)/[facility] LABORATORY RBC 4.06 4.00 - [facility] 5.21 [facility] x10(6)/[facility] LABORATORY Hemoglobin 12.5 11.7 - ZAKIA VICENTE 15.5 gm/dL [facility] Hematocrit 35.6 (L) 35.7 - ZAKIA ZHANG 45.8 % [facility] MCV 87.7 82.6 - [facility] 94.4 [facility] LABORATORY MCH 30.8 27.1 - [place]IA DELGAD[place]OCK 32.0 pg [facility] MCHC 35.1 (H) 31.7 - [facility] VICENTE 35.0 gm/dL [facility] Platelets 235 145 - 357 [facility] x10(3)/[facility] LABORATORY RDWSD 41.7 37.0 - [facility] 46.0 [facility] LABORATORY RDWCV 13.1 11.5 - [facility] 14.1 % [facility] MPV 10.4 7.6 - 12.9 [facility] LABORATORY nRBC % Auto 0.0 % [facility] nRBC Abs Auto 0.000 0.000 - [facility] VICENTE 0.000 [facility] x10(3)/[facility] LABORATORY Specimen Anatomical Collection Method Collection Time Receive d Time (Source) Location / / Volume Laterality Blood specimen 08/29/2018 8:43 PM 019 8:50 (specimen) EDT PM EDT Resulting Agency Comment Spec In Lab Liliana Echeverria MD HEMATOLOGY ORDERABLES Performing Organization Address City/State/[place] [address] Prothrombin Time (08/29/2018 8:43 PM EDT) P athologist Signature PT 12.2 9.4 - 12.5 [facility] LABORATORY INR 1.1 [facility] Comment: An INR <2.0 indicates [...] Location / / Volume Laterality Blood specimen 08/29/2018 8:43 PM 019 8:50 (specimen) EDT PM EDT Resulting Agency Comment Spec In Lab Liliana Echeverria MD HEMATOLOGY ORDERABLES Performing Organization Address City/[facility]/ZIP Code Phon e Number [address] Magnesium (08/29/2018 8:43 PM EDT) P athologist Signature Magnesium 0.74 0.69 - 1.07 [facility] mmol/L [facility] Specimen Anatomical Collection Method Collection Time Receive d Time (Source) Location / / Volume Laterality Blood specimen 08/29/2018 8:43 PM 019 8:50 (specimen) EDT PM EDT Resulting Agency Comment Spec In Lab Liliana Echeverria MD CHEMISTRY ORDERABLES Performing Organization Address City/[facility]/ZIP [facility] [place] [address] (ABNORMAL) Basic Metabolic Panel (non-fasting) (08/29/2018 8:43 PM EDT) P athologist Signature Glucose Lvl 193 65 - 199 [facility] mg/dL [facility] Comment: Diabetes: >=200 mg/dL plus symp toms BUN 22 (H) 8 - 18 mg/dL [facility] Creatinine 1.80 (H) 0.70 - 1.20 mg/dL [facility] Sodium 134 (L) 135 - 145 mmol/L [facility] Potassium 3.3 (L) 3.5 - 5.0 mmol/L [facility] Comment: Please note: ??Patients with WBC >100,00 0 may have falsely elevated Potassium levels. ??For accurate Potassium quantif ication in these patients send serum separator tube (gold top) for subsequent determinations. ??Contact the Clinical Chemistry Laboratory if there are any qu estions. Chloride 101 98 - 107 mmol/L [facility] CO2 22 22 - 31 mmol/L [facility] Anion Gap 11 5 - 15 mmol/L [facility] Calcium 8.3 (L) 8.5 - 10.5 mg/dL [facility] Estimated GFR 28 (L) >=60 mL/min/1.73 m?? [facility] Comment: The eGFR was calculated using the CKD-EP I equation. As with all creatinine based estimates of kidney function, eGFR values calculated with the CKD-EPI equation are not accurate in patients wi th acute kidney failure, extremes of body mass or the acutely ill. http://[employer]SAnk eGFR 33 (L) >=60 mL/min/1.73 m?? [facility] Comment: The eGFR was calculated using the CKD-EP I equation. As with all creatinine based estimates of kidney function, eGFR values calculated with the CKD-EPI equation are not accurate in patients wi th acute kidney failure, extremes of body mass or the acutely ill. [email or web address]SAnk Specimen Anatomical Collection Method Collection Time Receive d Time (Source) Location / / Volume Laterality Blood specimen 08/29/2018 8:43 PM 019 8:50 (specimen) EDT PM EDT Resulting Agency Comment Spec In Lab Liliana Echeverria MD CHEMISTRY ORDERABLES Performing Organization Address City/[facility]/[place] [address] POCT Glucose (08/29/2018 6:31 PM EDT) athologist Signature POC Glucose 115 65 - 199 [facility] mg/dL [facility] Comment: Supplemental ranges: <140 mg/dL before meals <180 mg/dL all other times of the day Specimen Anatomical Collection Method Collection Time Receive d Time (Source) Location / / Volume Laterality Blood specimen 08/29/2018 6:31 PM 019 6:31 (specimen) EDT PM EDT Liliana Echeverria MD POINT OF CARE TEST ORDERABLE S Performing Organization Address City/[facility]/[place] [address] documented in this encounter Visit Diagnoses Diagnosis Renal artery stenosis Atherosclerosis of renal artery Hypertensive urgency Unspecified essential hypertension 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 Abnormal EKG Nonspecific abnormal electrocardiogram ( ECG) (EKG) documented in this encounter Admitting Diagnoses Diagnosis Hypertensive urgency Unspecified essential hypertension documented in this encounter Administered Medications Inactive Administered Medications - up to 3 most recent administrations Medication Order MAR Action Action Date Dose Rate Site acetaminophen (OFIRMEV) Given 09/08/2018 1:56 PM 1,000 mg 400 mL/hr injection 1,000 mg EDT 1,000 mg, Intravenous, at 400 mL/hr, EVERY 8 HOURS SCHEDULED, 3 doses, First dose on Thu09/07/18 at 2200, Last dose on Thu09/08/18 at 1400, Maximum dose of acetaminophen is 4000 mg from all sources in 24 hours., Routine, Is ketorolac (Toradol) IV contraindicated? Yes, Can this patient tolerate oral medications or suppositories? No Given 09/08/2018 5:57 AM EDT 1,000 mg 400 mL/hr Given 09/07/2018 9:09 PM EDT 1,000 mg 400 mL/hr acetaminophen (TYLENOL) tablet 1,000 mg Given 08/30/2018 10:54 PM EDT 1,000 mg 1,000 mg, Oral, EVERY 6 HOURS PRN, Starting on Thu08/29/18 at 1939, Until Thu09/08/18 at 1031, Pain, for MODERATE pain (4-6), Should be used concomitantly if other analgesics are ordered. Do not exceed 4,000 mg in 24 hours, Routine Given 08/30/2018 1:15 AM EDT 1,000 mg acetaminophen (TYLENOL) tablet 500 mg Given 09/14/2018 12:08 PM EDT 500 mg 500 mg, Oral, EVERY 6 HOURS SCHEDULED, First dose on Thu09/13/18 at 0000, Until Discontinued, Maximum dose of acetaminophen is 4000 mg from all sources in 24 hours., Routine Given 09/14/2018 5:44 AM EDT 500 mg Given 09/13/2018 11:18 PM EDT 500 mg aspirin chewable tablet 81 mg Given 09/14/2018 9:00 AM EDT 81 mg 81 mg, Oral, DAILY, First dose on 09/11/18 at 0900, Until Discontinued, Routine Given 09/13/2018 9:49 AM EDT 81 mg Given 09/12/2018 8:10 AM EDT 81 mg aspirin EC tablet 81 mg Given 09/07/2018 9:17 AM EDT 81 mg 81 mg, Oral, DAILY, First dose on Thu08/30/18 at 0900, Until Discontinued, Routine Given 09/06/2018 8:35 AM EDT 81 mg Given 09/05/2018 8:11 AM EDT 81 mg aspirin suppository 300 mg Given 09/07/2018 8:47 PM EDT 300 mg 300 mg, Rectal, ONCE, 1 dose, On Thu09/07/18 at 2045, Routine aspirin suppository 300 mg Given 09/10/2018 8:40 AM EDT 300 mg 300 mg, Rectal, DAILY, First dose on Thu09/08/18 at 0900, Until Discontinued, Routine Given 09/09/2018 8:49 AM EDT 300 mg Given 09/08/2018 8:33 AM EDT 300 mg atorvastatin (LIPITOR) tablet 40 mg Given 09/06/2018 4:19 PM EDT 40 mg 40 mg, Oral, EVERY EVENING, First dose on Thu08/29/18 at 2000, Until Discontinued, Routine Given 09/05/2018 4:46 PM EDT 40 mg Given 09/04/2018 5:29 PM EDT 40 mg bisacodyl (DULCOLAX) suppository 10 mg Given 09/12/2018 8:10 AM EDT 10 mg 10 mg, Rectal, DAILY, First dose on Thu09/12/18 at 0900, Until Discontinued, Routine calcium carbonate (Tums) chewable tablet 500 Given 12/2018 1:19 AM EDT 500 mg mg 500 mg, Oral, ONCE, 1 dose, On Thu09/02/18 at 0130, Routine calcium carbonate (Tums) chewable tablet 500 Given 6:42 AM EDT 500 mg mg 500 mg, Oral, 3 TIMES DAILY PRN, Starting on Thu09/06/18 at 2146, Until Thu09/14/18 at 1740, Heartburn, Routine Given 09/07/2018 12:40 AM EDT 500 mg captopril (CAPOTEN) tablet 12.5 mg Given 09/06/2018 6:17 AM EDT 12.5 mg 12.5 mg, Oral, EVERY 8 HOURS SCHEDULED, First dose (after last modification) on Thu09/05/18 at 1400, Until Discontinued, Routine Given 09/05/2018 9:01 PM EDT 12.5 mg Given 09/05/2018 1:05 PM EDT 12.5 mg captopril (CAPOTEN) tablet 12.5 mg Given 09/07/2018 6:47 AM EDT 12.5 mg 12.5 mg, Oral, EVERY 8 HOURS SCHEDULED, First dose (after last modification) on 09/06/18 at 1400, Until Discontinued, Routine Given 09/06/2018 9:27 PM EDT 12.5 mg Given 09/06/2018 1:06 PM EDT 12.5 mg captopril (CAPOTEN) tablet 6.25 mg Given 09/05/2018 6:14 AM EDT 6.25 mg 6.25 mg, Oral, EVERY 8 HOURS SCHEDULED, First dose on 09/04/18 at 1400, Until Discontinued, Routine Given 09/04/2018 9:55 PM EDT 6.25 mg Given 09/04/2018 1:19 PM EDT 6.25 mg carvedilol (COREG) tablet 37.5 mg Given 09/07/2018 9:17 AM EDT 37.5 mg 37.5 mg, Oral, 2 TIMES DAILY WITH MEALS, First dose (after last reorder) on Thu08/29/18 at 2030, Until Discontinued, Routine Given 09/06/2018 4:19 PM EDT 37.5 mg Given 09/06/2018 8:36 AM EDT 37.5 mg ceFAZolin (ANCEF) 1g in dextrose 5% New Bag 09/08/2018 3:55 PM EDT 1 g 100 mL/hr 50mL 1 g, Intravenous, EVERY 8 HOURS, 3 doses, First dose on Thu09/08/18 at 0000, Last dose on Thu09/08/18 at 1600, Administer over 30 Minutes, Indication for (Active or Suspected): Prophylaxis New Bag 09/08/2018 7:50 AM EDT 1 g 100 mL/hr New Bag 09/07/2018 11:30 PM EDT 1 g 100 mL/hr chlorhexidine (PERIDEX) 0.12 % oral solution Given 8:33 AM EDT 15 mLs 15 mL 15 mL, Oral, 2 TIMES DAILY, First dose on Thu08/29/18 at 2100, Until Discontinued, [place] teeth, Routine Given 09/06/2018 9:27 PM EDT 15 mLs Given 09/06/2018 8:36 AM EDT 15 mLs dextrose 5% and sodium New Bag 09/11/2018 5:50 AM 125 mL/hr 125 m L/hr Central Line chloride 0.45% with EDT potassium chloride 20 mEq infusion 125 mL/hr, Intravenous, CONTINUOUS, Starting on Thu09/10/18 at 2115, Until Thu09/11/18 at 1615, Warning Vesicant/Irritant Medication New Bag 09/10/2018 10:33 PM EDT 125 mL/hr 125 mL/hr Cent ral Line enoxaparin (LOVENOX) injection 30 mg Given 08/30/2018 9:13 PM EDT 30 mg 30 mg, Subcutaneous, NIGHTLY, First dose (after last reorder) on Thu08/29/18 at 2100, Until Discontinued, Routine Given 08/29/2018 8:22 PM EDT 30 mg furosemide (LASIX) injection 100 mg Given 09/03/2018 8:52 AM EDT 100 mg 100 mg, Intravenous, ONCE, 1 dose, On Thu09/03/18 at 0845, Routine furosemide (LASIX) injection 100 mg Given 09/03/2018 7:44 PM EDT 100 mg 100 mg, Intravenous, ONCE, 1 dose, On Thu09/03/18 at 1930, Routine furosemide (LASIX) injection 20 mg Given 09/01/2018 8:20 PM EDT 20 mg 20 mg, Intravenous, ONCE, 1 dose, On Thu09/01/18 at 2030 furosemide (LASIX) injection 20 mg Given 09/02/2018 1:27 AM EDT 20 mg 20 mg, Intravenous, ONCE, 1 dose, On Cinthia 09/02/18 at 0130 furosemide (LASIX) injection 40 mg Given 08/30/2018 4:41 PM EDT 40 mg 40 mg, Intravenous, 2 TIMES DAILY, First dose on Thu08/29/18 at 2000, Until Discontinued Given 08/30/2018 8:43 AM EDT 40 mg Given 08/29/2018 8:31 PM EDT 40 mg furosemide (LASIX) injection 40 mg Given 08/31/2018 5:40 PM EDT 40 mg 40 mg, Intravenous, ONCE, 1 dose, On Thu08/31/18 at 1615 furosemide (LASIX) injection 80 mg Given 09/04/2018 1:19 PM EDT 80 mg 80 mg, Intravenous, EVERY 6 HOURS, 2 doses, First dose on Thu09/04/18 at 0800, Last dose on Thu09/04/18 at 1400, Routine Given 09/04/2018 8:48 AM EDT 80 mg furosemide (LASIX) injection 80 mg Given 09/05/2018 4:06 PM EDT 80 mg 80 mg, Intravenous, EVERY 6 HOURS, 2 doses, First dose (after last reorder) on Thu09/05/18 at 0915, Last dose on Thu09/05/18 at 1515, Routine Given 09/05/2018 10:16 AM EDT 80 mg furosemide (LASIX) injection 80 mg Given 09/06/2018 6:53 PM EDT 80 mg 80 mg, Intravenous, ONCE, 1 dose, On Thu09/06/18 at 1900, Routine gabapentin (NEURONTIN) capsule 800 mg Given 09/06/2018 9:27 PM EDT 800 mg 800 mg, Oral, NIGHTLY, First dose on Thu08/29/18 at 2100, Until Discontinued, Routine Given 09/05/2018 9:01 PM EDT 800 mg Given 09/04/2018 9:54 PM EDT 800 mg heparin (Porcine) subcutaneous injection Given 9:28 PM EDT 5,000 Units 5,000 Units 5,000 Units, Subcutaneous, EVERY 12 HOURS SCHEDULED (2 times per day), 13 doses, First dose on Thu08/31/18 at 2100, Last dose on Thu09/06/18 at 2100, Routine Given 09/06/2018 8:36 AM EDT 5,000 Units Given 09/05/2018 9:01 PM EDT 5,000 Units heparin (Porcine) subcutaneous injection Given 9:00 AM EDT 5,000 Units 5,000 Units 5,000 Units, Subcutaneous, EVERY 12 HOURS SCHEDULED (2 times per day), First dose (after last reorder) on Thu09/08/18 at 0900, Until Discontinued, Routine Given 09/13/2018 8:59 PM EDT 5,000 Units Abdom inal Tissue Given 09/13/2018 9:50 AM EDT 5,000 Units hydrALAZINE (APRESOLINE) injection 10 mg Given 09/09/2018 4:05 PM EDT 10 mg 10 mg, Intravenous, EVERY 6 HOURS PRN, Starting on Thu09/08/18 at 1345, Until Thu09/09/18 at 2304, High Blood Pressure, For SBP >160 Given 09/09/2018 9:50 AM EDT 10 mg Given 09/09/2018 3:29 AM EDT 10 mg hydrALAZINE (APRESOLINE) injection 10 mg Given 09/09/2018 6:04 AM EDT 10 mg 10 mg, Intravenous, ONCE, 1 dose, On Thu09/09/18 at 0600 hydrALAZINE (APRESOLINE) injection 10 mg Given 09/10/2018 5:24 AM EDT 10 mg 10 mg, Intravenous, EVERY 6 HOURS SCHEDULED, First dose (after last reorder) on Thu09/09/18 at 1800, Until Discontinued Given 09/09/2018 11:07 PM EDT 10 mg Given 09/09/2018 5:36 PM EDT 10 mg hydrALAZINE (APRESOLINE) injection 10 Given 09/11/2018 5:41 AM E DT 10 mg Left Arm mg 10 mg, Intravenous, EVERY 4 HOURS PRN, Starting on Thu09/09/18 at 2315, Until Thu09/12/18 at 1141, High Blood Pressure, For SBP >160 Given 09/10/2018 4:16 AM EDT 10 mg hydrALAZINE (APRESOLINE) injection 10 mg Given 09/10/2018 4:33 AM EDT 10 mg 10 mg, Intravenous, ONCE, 1 dose, On Thu09/10/18 at 0445 hydrALAZINE (APRESOLINE) injection 10 mg Given 09/11/2018 8:56 AM EDT 10 mg 10 mg, Intravenous, EVERY 4 HOURS, First dose (after last modification) on Thu09/10/18 at 0930, Until Discontinued Given 09/11/2018 1:37 AM EDT 10 mg Left Arm Given 09/10/2018 9:40 PM EDT 10 mg Left Arm hydrALAZINE (APRESOLINE) injection 5 mg Given 09/08/2018 12:52 PM EDT 5 mg 5 mg, Intravenous, EVERY 6 HOURS PRN, Starting on Thu09/08/18 at 0828, Until Thu09/08/18 at 1345, High Blood Pressure, For SBP >160 hydrALAZINE (APRESOLINE) injection 5 mg Given 09/08/2018 2:01 PM EDT 5 mg 5 mg, Intravenous, ONCE, 1 dose, On Thu09/08/18 at 1415, Routine HYDROmorphone (DILAUDID) injection 0.2 m g Given 09/07/2018 8:15 PM EDT 0.2 mg 0.2 mg, Intravenous, EVERY 4 HOURS PRN, Starting on Thu08/31/18 at 1552, Until Thu09/07/18 at 2027, shortness of breath, Routine Given 09/05/2018 2:36 AM EDT 0.2 mg Given 09/03/2018 12:59 PM EDT 0.2 mg HYDROmorphone (DILAUDID) injection 0.4 m g Given 09/12/2018 7:58 AM EDT 0.4 mg 0.4 mg, Intravenous, EVERY 1 HOUR PRN, Starting on Thu09/07/18 at 2028, Until Thu09/14/18 at 1740, Pain, Routine Given 09/11/2018 10:14 PM EDT 0.4 mg Cent ral Line Given 09/11/2018 12:26 PM EDT 0.4 mg HYDROmorphone (DILAUDID) injection 0.4 m g Given 09/07/2018 11:27 PM EDT 0.4 mg 0.4 mg, Intravenous, ONCE, 1 dose, On Thu09/07/18 at 2145, Routine ipratropium-albuterol (DUONEB) 0.5 mg-3 Given 09/03/2018 12:27 A M EDT 3 mLs mg(2.5 mg base)/3 mL nebulizer solution 3 mL 3 mL, Nebulization, 4 TIMES DAILY PRN, Starting on Thu09/01/18 at 1657, Until Thu09/07/18 at 2027, Wheezing, Routine ipratropium-albuterol (DUONEB) 0.5 mg-3 mg(2.5 mg base)/3 mL nebulizer solution 3 mL 3 mL, Nebulization, 4 TIMES DAILY PRN, S tarting on Thu09/10/18 at 0205, Until Thu09/14/18 at 1740, Wheezing, Routine labetalol (NORMODYNE) tablet 200 mg Given 09/14/2018 9:09 AM EDT 200 mg 200 mg, Oral, 2 TIMES DAILY, First dose on Thu09/11/18 at 1200, Until Discontinued, Routine Given 09/13/2018 8:57 PM EDT 200 mg Given 09/13/2018 9:49 AM EDT 200 mg labetalol (NORMODYNE,TRANDATE) injection 10 mg Given 09/09/2018 4:06 AM EDT 10 mg 10 mg, Intravenous, ONCE, 1 dose, On Cinthia 09/09/18 at 0430, 10mg over 2min, Routine labetalol (NORMODYNE,TRANDATE) injection 10 mg Given 09/09/2018 9:04 PM EDT 10 mg 10 mg, Intravenous, EVERY 4 HOURS PRN, Starting on Cinthia 09/09/18 at 1310, Until Cinthia 09/09/18 at 2304, High Blood Pressure, for SBP > 160, 10mg over 2min, Routine Given 09/09/2018 1:34 PM EDT 10 mg labetalol (NORMODYNE,TRANDATE) Given 09/11/2018 5:42 AM EDT 10 m g Left Arm injection 10 mg 10 mg, Intravenous, EVERY 2 HOURS PRN, Starting on Cinthia 09/09/18 at 2315, Until [place] 09/12/18 at 1141, High Blood Pressure, for SBP > 160, 10mg over 2min Hold for HR < 60, Routine Given 09/10/2018 6:06 AM EDT 10 mg Given 09/10/2018 2:09 AM EDT 10 mg labetalol (NORMODYNE,TRANDATE) injection 10 mg Given 09/11/2018 1:40 PM EDT 10 mg 10 mg, Intravenous, EVERY 4 HOURS, First dose on Thu09/10/18 at 0900, Until Discontinued, Hold for SBP<110 and HR<50, Routine Given 09/11/2018 8:13 AM EDT 10 mg Given 09/11/2018 12:56 AM EDT 10 mg Left Arm labetalol (NORMODYNE,TRANDATE) injection 20 mg Given 09/09/2018 6:14 PM EDT 20 mg 20 mg, Intravenous, ONCE, 1 dose, On Cinthia 09/09/18 at 1830, Routine lactated Ringers 250 mL IV bolus New Bag 09/08/2018 5:54 PM EDT Intravenous, ONCE, 1 dose, On Thu09/08/18 at 1800 levothyroxine (SYNTHROID) tablet 37.5 mc g Given 09/07/2018 6:47 AM EDT 37.5 mcg 37.5 mcg, Oral, EVERY MORNING, First dose on Thu08/30/18 at 0700, Until Discontinued, Routine Given 09/06/2018 6:17 AM EDT 37.5 mcg Given 09/05/2018 6:14 AM EDT 37.5 mcg lidocaine (LIDODERM) 5 Patch Applied 09/12/2018 10:20 PM 3 patches 14- Abdomen % patch 3 patch EDT (Right) 3 patch, Transdermal, EVERY 24 HOURS, First dose on Thu09/07/18 at 2145, Until Discontinued, Apply patch(es) to abdominal area for 12 hours, and then remove for 12 hours, Routine Patch Applied 09/10/2018 9:41 PM EDT 3 patches 20-O ther (document in comment section) Patch Applied 09/08/2018 8:53 PM EDT 3 patches 13- Abdomen (Left) lidocaine (LIDODERM) patch REMOVAL Transdermal, EVERY 24 HOURS, First dose on Thu09/08/18 at 0930, Until Discontinued, Remove lidocaine 5 %(700 mg/patch) patch magnesium sulfate 2 g in sterile water New 09/04/2018 1:18 PM EDT 2 g 25 mL/hr 50 mL 2 g, Intravenous, ONCE, 1 dose, On Thu09/04/18 at 0900, Administer over 120 Minutes magnesium sulfate 2 g in sterile water New 09/07/2018 3:49 AM EDT 2 g 25 mL/hr 50 mL 2 g, Intravenous, ONCE, 1 dose, On Thu09/07/18 at 0215, Administer over 120 Minutes magnesium sulfate 2 g in sterile water New 09/14/2018 12:0 8 PM EDT 2 g 25 mL/hr 50 mL 2 g, Intravenous, EVERY 2 HOURS, 2 doses, First dose on Thu09/14/18 at 0900, Last dose on Thu09/14/18 at 1100, Administer over 120 Minutes New 09/14/2018 9:00 AM EDT 2 g 25 mL/hr melatonin tablet 3 mg Given 08/30/2018 12:35 AM EDT 3 mg 3 mg, Oral, ONCE, 1 dose, On Thu08/30/18 at 0045, Routine melatonin tablet 3 mg Given 09/06/2018 9:27 PM EDT 3 mg 3 mg, Oral, NIGHTLY, First dose (after last reorder) on 08/30/18 at 2315, Until Discontinued, Routine Given 09/05/2018 9:01 PM EDT 3 mg Given 09/04/2018 9:55 PM EDT 3 mg metoprolol (LOPRESSOR) injection 2.5 mg Given 09/07/2018 8:49 PM EDT 2.5 mg 2.5 mg, Intravenous, EVERY 6 HOURS, First dose (after last modification) on Thu09/07/18 at 2100, Until Discontinued, Hold for HR < 50 metoprolol (LOPRESSOR) injection 5 mg Given 09/10/2018 5:20 AM EDT 5 mg 5 mg, Intravenous, EVERY 6 HOURS, First dose on Cinthia 09/09/18 at 2100, Until Discontinued, Hold for HR less than 60 and sbp less than 110 Given 09/09/2018 8:12 PM EDT 5 mg niCARdipine 0.2 mg/mL Restarted 09/05/2018 3:30 AM EDT 2.5 mg/hr 12 .5 mL/hr (standard Adult and Pedi greater than 20 kg) infusion 0-15 mg/hr (0-75 mL/hr), Intravenous, CONTINUOUS, Starting on Thu08/29/18 at 2000, Until Thu09/05/18 at 0841, Titrate to SBP greater than 130 and less than 170 mmHg. Start at 5 mg/hour, titrate to maintain target SBP, adjust infusion rate by 2.5 mg/hour every 5 min. Dose not to exceed 15 mg/hour., Routine Rate/Dose Change 09/04/2018 12:30 PM EDT 2.5 mg/hr 12.5 mL/hr New Bag 09/04/2018 9:52 AM EDT 5 mg/hr 25 mL/hr niCARdipine 0.2 mg/mL Restarted 09/07/2018 4:54 PM EDT 2.5 mg/hr 12 .5 mL/hr (standard Adult and Pedi greater than 20 kg) infusion 0-15 mg/hr (0-75 mL/hr), Intravenous, CONTINUOUS, Starting on Thu09/05/18 at 1215, Until Thu09/07/18 at 2027, Titrate to SBP greater than 120 and less than 170 mmHg. Start at 5 mg/hour, titrate to maintain target SBP, adjust infusion rate by 2.5 mg/hour every 5 minutes to a maximum of 15 mg/hour. Rotate IV site every 12 hours, Routine Rate/Dose Change 09/07/2018 3:02 PM EDT 2.5 mg/hr 12.5 mL/hr New Bag 09/07/2018 6:48 AM EDT 2.5 mg/hr 12.5 mL/hr niCARdipine 0.2 mg/mL Rate/Dose Change 09/11/2018 11:32 AM 2.5 mg/hr 12.5 mL/hr (standard Adult and Pedi EDT greater than 20 kg) infusion 0-15 mg/hr (0-75 mL/hr), Intravenous, CONTINUOUS, Starting on Thu09/07/18 at 2045, Until Thu09/12/18 at 1141, Titrate to SBP greater than 120 and less than 160 mmHg. Start at 5 mg/hour, titrate to maintain target SBP, adjust infusion rate by 2.5 mg/hour every 5 minutes to a maximum of 15 mg/hour., , Rotate IV site every 12 hours if running peripherally, Routine Rate/Dose Change 09/11/2018 9:46 AM EDT 7.5 mg/hr 37.5 mL/hr New Bag 09/11/2018 8:23 AM EDT 10 mg/hr 50 mL/hr NIFEdipine (ADALAT CC) CR tablet 30 mg Given 09/14/2018 10:26 AM EDT 30 mg 30 mg, Oral, 2 TIMES DAILY, First dose on Thu09/11/18 at 1215, Until Discontinued, DO NOT CRUSH OR OPEN, Routine Given 09/13/2018 8:58 PM EDT 30 mg Given 09/13/2018 10:39 AM EDT 30 mg nitroGLYcerin (NITROSTAT) SL tablet 0.4 mg Given 09/03/2018 2:52 AM EDT 0.4 mg 0.4 mg, Sublingual, ONCE, On Thu09/03/18 at 0300, 1 dose, SL nitroglycerin may be repeated every 5 minutes as needed up to 3 doses ondansetron (ZOFRAN) injection 4 mg Given 08/31/2018 8:27 PM EDT 4 mg 4 mg, Intravenous, ONCE, 1 dose, On Thu08/31/18 at 1915 ondansetron (ZOFRAN) injection 4 mg 4 mg, Intravenous, EVERY 8 HOURS PRN, St arting on Thu09/07/18 at 2038, Until Thu09/14/18 at 1740, Nausea oxyCODONE (ROXICODONE) immediate release tablet Given 09/14/2018 5:44 AM EDT 5 mg 5 mg 5 mg, Oral, EVERY 4 HOURS PRN, Starting on Thu09/13/18 at 0658, Until Thu09/14/18 at 1740, Pain, Routine Given 09/13/2018 11:19 PM EDT 5 mg Given 09/13/2018 4:59 PM EDT 5 mg pantoprazole (PROTONIX) injection 40 mg Given 09/14/2018 9:00 AM EDT 40 mg 40 mg, Intravenous, DAILY, First dose on Thu09/08/18 at 1115, Until Discontinued Given 09/13/2018 9:50 AM EDT 40 mg Given 09/12/2018 8:12 AM EDT 40 mg polyethylene glycol (MIRALAX) packet 17 g Given 09/12/2018 8:09 AM EDT 17 g 17 g, Oral, DAILY, First dose on Thu09/10/18 at 2115, Until Discontinued, Routine Given 09/10/2018 10:39 PM EDT 17 g potassium chloride (K-DUR/KLOR-CON) extended Given 11/2018 8:20 PM EDT 20 mEq release tablet 20 mEq 20 mEq, Oral, ONCE, 1 dose, On Thu09/01/18 at 2030, 20 mEq tablet may be dissolved in water for administration. Note: Give together with Lasix IV., Routine potassium chloride (K-DUR/KLOR-CON) extended Given 12/2018 1:19 AM EDT 20 mEq release tablet 20 mEq 20 mEq, Oral, ONCE, 1 dose, On Thu09/02/18 at 0130, 20 mEq tablet may be dissolved in water for administration. Note: Give together with Lasix IV., Routine potassium chloride (K-DUR/KLOR-CON) extended Given 08/2018 9:28 PM EDT 40 mEq release tablet 40 mEq 40 mEq, Oral, ONCE, 1 dose, On Thu08/29/18 at 2145, 20 mEq tablet may be dissolved in water for administration, Routine potassium chloride (K-DUR/KLOR-CON) extended Given 09/2018 10:06 AM EDT 40 mEq release tablet 40 mEq 40 mEq, Oral, ONCE, 1 dose, On Thu08/30/18 at 0915, 20 mEq tablet may be dissolved in water for administration, Routine potassium chloride (K-DUR/KLOR-CON) extended Given 02/2019 8:48 AM EDT 40 mEq release tablet 40 mEq 40 mEq, Oral, ONCE, 1 dose, On 09/04/18 at 0745, 20 mEq tablet may be dissolved in water for administration, Routine potassium chloride (K-DUR/KLOR-CON) extended Given 02/2019 2:24 PM EDT 40 mEq release tablet 40 mEq 40 mEq, Oral, ONCE, 1 dose, On 09/04/18 at 1400, 20 mEq tablet may be dissolved in water for administration, Routine potassium chloride (K-DUR/KLOR-CON) extended Given 02/2019 10:20 PM EDT 40 mEq release tablet 40 mEq 40 mEq, Oral, EVERY 4 HOURS, 3 doses, First dose on 09/04/18 at 1515, Last dose on 09/04/18 at 2315, 20 mEq tablet may be dissolved in water for administration, Routine Given 09/04/2018 6:34 PM EDT 40 mEq Given 09/04/2018 3:15 PM EDT 40 mEq potassium chloride (K-DUR/KLOR-CON) extended Given 3:06 AM EDT 40 mEq release tablet 40 mEq 40 mEq, Oral, EVERY 4 HOURS PRN, Starting on Thu09/06/18 at 1105, Until Thu09/13/18 at 0820, hypokalemia, Administer for serum potassium (mMol/L) of 3.6 - 3.8 See instructions for Potassium Protocol in online policies., Routine potassium chloride (K-DUR/KLOR-CON) extended Given 12:16 PM EDT 40 mEq release tablet 40 mEq 40 mEq, Oral, ONCE, 1 dose, On Thu09/06/18 at 1200, Routine potassium chloride (K-DUR/KLOR-CON) extended Given 1:17 PM EDT 40 mEq release tablet 40 mEq 40 mEq, Oral, EVERY 3 HOURS, 2 doses, First dose on Thu09/13/18 at 0845, Last dose on Thu09/13/18 at 1145, 20 mEq tablet may be dissolved in water for administration, Routine Given 09/13/2018 9:49 AM EDT 40 mEq potassium chloride 20 mEq in 100 mL New Bag 09/06/2018 9:28 PM EDT 20 mEq 100 mL/hr 20 mEq, Intravenous, EVERY 1 HOUR PRN, Starting on Thu09/06/18 at 1842, Until Thu09/13/18 at 0820, Administer over 60 Minutes, hypokalemia, Administer 2 doses for a serum potassium (mMol/L) of 3.3 - 3.8 See instructions for Potassium Protocol in online policies. New Bag 09/06/2018 8:08 PM EDT 20 mEq 100 mL/hr potassium chloride 20 mEq in 100 New Bag 09/11/2018 12:27 PM E DT 20 mEq 100 mL/hr mL 20 mEq, Intravenous, EVERY 1 HOUR PRN, Starting on Thu09/06/18 at 1842, Until Thu09/13/18 at 0820, Administer over 60 Minutes, hypokalemia, Administer 3 doses for a serum potassium (mMol/L) of 2.8 - 3.2 See instructions for Potassium Protocol in online policies. New Bag 09/11/2018 10:42 AM EDT 20 mEq 100 mL/hr New Bag 09/11/2018 9:37 AM EDT 20 mEq 100 mL/hr senna-docusate (PERICOLACE) 8.6-50 mg per Given 2018 9:49 AM EDT 2 tablets tablet 2 tablet 2 tablet, Oral, 2 TIMES DAILY, First dose on Thu09/12/18 at 0900, Until Discontinued, Routine Given 09/12/2018 8:12 AM EDT 2 tablets sodium chloride 0.9 % flush 5 mL Given 09/14/2018 9:01 AM EDT 5 mLs 5 mL, Intravenous, 2 TIMES DAILY, First dose on Thu08/29/18 at 2100, Until Discontinued, Routine Given 09/13/2018 9:00 PM EDT 5 mLs Given 09/13/2018 9:51 AM EDT 5 mLs sodium chloride 0.9% Rate/Dose Change 09/02/2018 6:26 PM EDT 75 mL/hr 75 mL/hr infusion 75 mL/hr, Intravenous, CONTINUOUS, Starting on Thu09/02/18 at 0800, Until Thu09/03/18 at 0436 New Bag 09/02/2018 5:51 PM EDT 150 mL/hr 150 mL/hr Rate/Dose Change 09/02/2018 2:00 PM EDT 150 mL/hr 150 mL/hr sodium chloride 0.9% Rate/Dose Verify 09/08/2018 10:00 AM 100 mL/hr 100 mL/hr infusion EDT 100 mL/hr, Intravenous, CONTINUOUS, Starting on Thu09/07/18 at 2045, Until Thu09/08/18 at 1200 Rate/Dose Verify 09/08/2018 8:00 AM EDT 100 mL/hr 100 mL/hr New Bag 09/08/2018 6:10 AM EDT 100 mL/hr 100 mL/hr sodium chloride 0.9% infusion New Bag 09/10/2018 7:20 PM EDT 125 mL/hr 125 mL/hr 125 mL/hr, Intravenous, CONTINUOUS, Starting on Thu09/08/18 at 1200, Until Thu09/10/18 at 2056 Rate/Dose Change 09/10/2018 7:22 AM EDT 125 mL/hr 125 mL/hr New Bag 09/10/2018 2:52 AM EDT 100 mL/hr 100 mL/hr technetium (Tc-99m) DMSA injection 5.5 m Ci Given 09/06/2018 10:40 AM EDT 5.5 mCi 5.5 mCi, Intravenous, ONCE PRN, 1 dose, Starting on Thu09/06/18 at 1040, Until Thu09/06/18 at 1040, Per Protocol, Routine documented in this encounter Active and Recently Administered Medications Times are shown in EDT. Scheduled Medication Order 09/12/2018 09/13/2018 09/14/2018 acetaminophen (TYLENOL) tablet 500 mg 4345 (Given - Pr ovider: Candida Harley RN) 0551 (Given - Provider: Candida melendez RN)1318 (Given - Provider: Kacie Bills RN)1858 (Given - Provider: Kacie Bills RN)2318 (Given - Provider: Gianna Horn RN) 0544 (Given - Provider: Gianna Horn RN)1208 (Given - Provider: Katy Sterling RN) 500 mg, Oral, EVERY 6 HOURS SCHEDULED, F irst dose on 09/13/18 at 0000, Until Discontinued, Maximum dose of acetaminophen is 4000 mg from all sources in 24 hours., Routine aspirin chewable tablet 81 mg 0810 (Given - Provider: Jeana Birmingham RN) 0949 (Given - Provider: Kacie Bills RN) 0900 (Given - Provider: Katy Sterling RN) 81 mg, Oral, DAILY, First dose on Sat at 0900, Until Discontinued, Routine bisacodyl (DULCOLAX) suppository 10 mg 0810 (Given - P rovider: Jeana Birmingham RN) 0900 (Not Given - Provider: Kacie rojas RN - Reason: Patient/family refused) 0900 (Not Given - Provider: Katy finley RN - Reason: Patient/family refused) 10 mg, Rectal, DAILY, First dose on Thu09/12/18 at 0900, Until Discontinued, Routine heparin (Porcine) subcutaneous injection 5,000 Units 0 810 (Given - Provider: Jeana Birmingham RN)2034 (Given - Provider: Geeta Beltran RN) 0950 (Given - Provider: Kacie Bills RN)2058 (Given - Provider: Gianna Horn RN) 0900 (Given - Provider: Katy Sterling RN) 5,000 Units, Subcutaneous, EVERY 12 HOUR S SCHEDULED (2 times per day), First dose on Thu09/08/18 at 0900, Until Discontinued, Routine labetalol (NORMODYNE) tablet 200 mg 0810 (Given - Prov ider: Jeana Birmingham RN)2034 (Given - Provider: Geeta Beltran RN) 0949 (Given - Provider: Kacie Bills RN)2056 (Given - Provider: Gianna Horn RN) 0909 (Given - Provider: Katy Sterling RN) 200 mg, Oral, 2 TIMES DAILY, First dose on 09/11/18 at 1200, Until Discontinued, Routine lidocaine (LIDODERM) 5 % patch 3 patch(Linked Group 1) 2219 (Patch Applied - Provider: Candida Harley RN) 2145 (Not Given - Provider: Gianna Horn, [place] - Reason: Patient/family refused) 3 patch, Transdermal, EVERY 24 HOURS, Fi rst dose on Thu09/07/18 at 2145, Until Discontinued, Apply patch(es) to abdominal area for 12 hours, and then remove for 12 hours, Routine lidocaine (LIDODERM) patch REMOVAL(Linked Group 1) 093 0 (Patch Removed - Provider: Jeana Birmingham RN) 0930 (Patch Removed - Provider: Kacie Bills RN) 0930 (Patch Not Removed (add comment) - Provider: Katy Sterling RN - Comment: no patch applied) Transdermal, EVERY 24 HOURS, First dose on Thu09/08/18 at 0930, Until Discontinued, Remove lidocaine 5 %(700 mg/patch) patch magnesium sulfate 2 g in sterile water 50 mL (COMPLETED) 0900 (New Bag - Provider: Katy Sterling RN)1059 (Stopped - Provider: Katy Sterling RN)1208 (New Bag - Provider: Katy Sterling RN)1408 (Due: Stopped - Provider: Katy Sterling RN) 2 g, Intravenous, EVERY 2 HOURS, 2 doses , First dose on Thu09/14/18 at 0900, Last dose on Thu09/14/18 at 1100, Administer over 120 Minutes NIFEdipine (ADALAT CC) CR tablet 30 mg 1143 (Given - P rovider: Jeana Birmingham RN)2219 (Given - Provider: Candida Harley RN) 1039 (Given - Provider: Valery Mo RN)2058 (Given - Provider: Gianna Horn, RN) 1026 (Given - Provider: Grace Phillip RN) 30 mg, Oral, 2 TIMES DAILY, First dose o n 09/11/18 at 1215, Until Discontinued, DO NOT CRUSH OR OPEN, Routine pantoprazole (PROTONIX) injection 40 mg 0812 (Given - Provider: Jeana Birmingham RN) 0950 (Given - Provider: Kacie Bills, [place]) 0900 (Gi ward - Provider: Katy Sterling RN) 40 mg, Intravenous, DAILY, First dose on Thu09/08/18 at 1115, Until Discontinued polyethylene glycol (MIRALAX) packet 17 g 0809 (Given - Provider: Jeana Birmingham RN) 09 (Not Given - Provider: Kacie rojas RN - Reason: Patient/family refused) 09 (Not Given - Provider: Katy finley RN - Reason: Patient/family refused) 17 g, Oral, DAILY, First dose on 08/25 at 2115, Until Discontinued, Routine potassium chloride (K-DUR/KLOR-CON) extended release tablet 40 mEq (COMPLETED) 948 (Given - Provider: Kacie Bills RN)131 (Given - Provider: Kacie Bills RN) 40 mEq, Oral, EVERY 3 HOURS, 2 doses, Fi rst dose on Thu09/13/18 at 0845, Last dose on Thu09/13/18 at 1145, 20 mEq tablet may be dissolved in water for administration, Routine senna-docusate (PERICOLACE) 8.6-50 mg per tablet 2 tab let 0812 (Given - Provider: Jeana Birmingham RN)2100 (Not Given - Provider: Geeta Beltran RN - Reason: Patient/family refused) 0949 (Given - Provider: Kacie Bills RN)2100 (Not Given - Provider: Gianna Horn RN - Reason: Patient/family refused) 09 (Not Given - Provider: Katy finley RN - Reason: Patient/family refused) 2 tablet, Oral, 2 TIMES DAILY, First dos e on Thu09/12/18 at 0900, Until Discontinued, Routine sodium chloride 0.9 % flush 5 mL 08 (Given - Provide r: Jeana Birmingham RN)2037 (Given - Provider: Geeta Beltran, [place]) 0951 (Given - Provider: Kacie Bills RN)2100 (Given - Provider: Gianna Horn RN) 09 (Given - Provider: Katy Sterling RN) 5 mL, Intravenous, 2 TIMES DAILY, First dose on Thu08/29/18 at 2100, Until Discontinued, Routine PRN Medication Order 09/12/2018 09/13/2018 09/14/2018 calcium carbonate (Tums) chewable tablet 500 mg 0642 ( Given - Provider: Patirzia Peng RN) 500 mg, Oral, 3 TIMES DAILY PRN, Startin g Thu09/06/18 at 2146, Until Thu09/14/18 at 1740, Heartburn, Routine HYDROmorphone (DILAUDID) injection 0.4 mg 0758 (Given - Provider: Jeana Birmingham RN) 0.4 mg, Intravenous, EVERY 1 HOUR PRN, S tarting Thu09/07/18 at 2028, Until Thu09/14/18 at 1740, Pain, Routine ipratropium-albuterol (DUONEB) 0.5 mg-3 mg(2.5 mg base)/3 mL nebulizer solution 3 mL 3 mL, Nebulization, 4 TIMES DAILY PRN, S tarting Thu09/10/18 at 0205, Until Thu09/14/18 at 1740, Wheezing, Routine lidocaine (XYLOCAINE) 10 mg/mL (1 %) injection 3 mg 3 mg (0.3 mL), Subcutaneous, ONCE PRN, 1 dose, Starting Thu08/29/18 at 1939, Until Thu09/14/18 at 1740, for discomfort with PIV insertion, Routine ondansetron (ZOFRAN) injection 4 mg 4 mg, Intravenous, EVERY [address]N, St arting Thu09/07/18 at 2038, Until Thu09/14/18 at 1740, Nausea oxyCODONE (ROXICODONE) immediate release tablet 5 mg 1659 (Given - Provider: Kacie Bills RN)2319 (Given - Provider: Gianna Horn RN) 0544 (Given - Provider: Gianna Horn RN) 5 mg, Oral, EVERY 4 HOURS PRN, Starting Thu09/13/18 at 0658, Until Thu09/14/18 at 1740, Pain, Routine potassium chloride (K-DUR/KLOR-CON) extended release t ablet 40 mEq (CANCELED) 0306 (Given - Provider: Patrizia Peng RN) 40 mEq, Oral, EVERY 4 HOURS PRN, Startin g Thu09/06/18 at 1105, Until Thu09/13/18 at 0820, hypokalemia, Administer for serum potassium (mMol/L) of 3.6 - 3.8 See instructions for Potassium Protocol in online policies., Routine sodium chloride 0.9 % flush 5-20 mL 5-20 mL, Intravenous, EVERY 1 MIN PRN, S tarting 08/29/18 at 1939, Until Thu09/14/18 at 1740, flush, Flush pertains to all indwelling lines. Flush per protocol found in the job aid using the link provided on this medication record., Routine Linked Groups Order Group 1: lidocaine (LIDODERM) 5 % patch 3 patchJump to med 3 patch, Transdermal, EVERY 24 HOURS, Fi rst dose on Thu09/07/18 at 2145, Until Discontinued
Apply patch(es) to abdominal area for 12 hours, and then remove for 12 hours
Routine And lidocaine (LIDODERM) patch REMOVALJump to med Transdermal, EVERY 24 HOURS, First dose on Thu09/08/18 at 0930, Until Discontinued
Remove lidocaine 5 %(700 mg/patch) patch
documented in this encounter Care Teams Buffer Copper Relationship Specialty Start Date End Date Sanjuanita Lee MD PCP - General 03/05/13 12/23/[address] [place] [address] documented as of this encounter
--- OUTSIDE RECORDS SUMMARY | 2022-02-22 23:36 | XMS_ITS | Encounter Summary ---
:1950 Author Organization [facility] [place] [address] Care Team Providers Name Role Phone Sanjuanita Lee MD Primary Care Provider Reason for Visit Auth/Cert Specialty Diagnoses / Procedures Referred By Contact Refer red To Contact Diagnoses Hypertensive urgency RENAL ARTERY STENOSIS Procedures EMERGENCY IPI Referral ID Status Reason Start Date Expiration Date Visits Requ ested Visits Authorized [id number] 1 1 Encounter Details Date Type Department Care Team Description 09/07/2018 Anesthesia Event Main Operating Room Trinidad Ansari MD [facility] [address] [facility] Candida Hernandez MD [facility] [place] [address] [place] [address] Anesthesia Record Procedure Summary Procedure Name Responsible Anesthesia Start Anesthesia Stop Anesthesiologist Time Time @BYPASS GRAFT, Trinidad Ansari MD 09/07/18 1502 09/07/181958 AORTOILIAC W\ VEIN CONDUIT (WRVU 41.88) (N/A Abdomen) Events Date Time Event Comment 09/07/2018 1322 1502 AN Verify 1502 Start 1502 An Start Data 1510 An Induction 1520 An Intubation 1522 Anesthesia Ready 1550 Procedure Start 1616 Quick Note Arterial line da mpened. BP via cuff is significantly hi gher. 1618 Quick Note Adjusted left wr ist and corrected the dampening of the arterial line. 173 Handoff Intra-procedure anesthesia care was transferred afte r review of the patient's history, current anesthetic/surgical status and plan, accord ing to the ANES Provider Handoff Checklis t. 1738 Heparin [address] Moody. 1900 Protamine 1939 Extubation/LMA Out 1946 Transport 1946 Transport 1950 an stop data 1952 Recovery or ICU Handoff Patient care was transferred to the destination unit staff after review of the patient's medica l history, current anesthetic/surgi lucio status and plan, according to the Provider Handoff Checklist. 1958 Stop Name Total fentaNYL 100 mcg IV Lidocaine 30 mg Propofol 100 mg Rocuronium 60 mg PHENYLephrine 80 mcg Heparin 4,000 Units Protamine 30 mg Dexamethasone 4 mg Ondansetron 4 mg niCARdipine 0.2 mg/mL (standard Adult and Pedi greater than 20 kg) 4.33 mg infusion ceFAZolin 2 g PHENYLephrine INF 180 mcg HYDROmorphone 0.5 mg Sugammadex 200 mg Lactated Ringers 600 mL Agents Name O2 Air N2O Sevoflurane (et) Blood No blood administrations on file. Lines, Drains, and Airways Type Details Placement Removal NG/OG Tube nasogastric; 16 Fr; right 09/07/18 1642 by 09/10 1700 by nostril; Taped; 09/10/18; Frantz Stewart S, 1700 (removed by other) RN Incision 09/01/18; 1535; groin; 09/01/18 1535 by 10/01/21 1039 by other (see comments); Whitney Ornelas, RN Aria Cisse RN percutaneous puncture; LDA not present upon assessment; 10/01/21; 1039 PIV 09/06/18; 1206; basilic 09/06/18 1206 by 9 2228 by vein (medial side of arm), Jinny Haywood Cima, Teresa A RN left; [id number] RN catheter system; 24 gauge, 1 in length, 1/4 in length; Benjamin HAYWOOD RN VAS; distraction, intradermal injection, tolerated well, appears comfortable; 0; no longer indicated, removed per patient; 09/10/18; 2228 PIV 09/06/18; 1207; 09/06/18 1207 by 09/10/18 2228 b y [id number] catheter Jinny Haywood Ci ma, Teresa A, RN system; 1 in length, 22 RN gauge; A OZZY RN VAS; distraction, intradermal injection, tolerated well, appears comfortable; 0; no longer indicated; 09/10/18; 2227 CVC 3 Lumen 09/06/18; 1500; internal 09/06/18 1500 by 1111 by jugular vein, right; Candy Dumont, Ramos on, Katy Alexander, RN 09/13/18; 1111 RN ETT Mask Ventilation: Easy 09/07/18 1520 by 09/07/18 1940 by (1); ETT Type: Cuffed, Lexus Paul MD Fran ker, Tyron Muñoz, Oral; ETT Size: 7.5 mm; FAMILY WORKER Mac Blade: 3; Notes: Asleep, Pre-O2, Stylette; Attempts: 2 (1st attempt by MSIV); Laryngoscopy Grade: 1; ETT Placement Verified By: Capnometry; Secured at Teeth: 21 cm; Inserted by: Humberto Arterial Line 09/07/18; 1527; radial 09/07/18 1527 by 09/08/18 0530 by artery, left; 20 gauge; Lexus Paul MD Caf azzo, Brittany M, zhang; Sterile Gloves, RN Sterile Prep; site symptomatic; 09/08/18; 0530 PIV 09/07/18; 1527; cephalic 09/07/18 1527 by 0007 by vein (lateral side of Lexus Paul MD Teich, Molly S, RN arm), left; 16 gauge; 01/08/19; 0007 Urethral Catheter 09/07/18; 1550; Surgery 09/07/18 1550 by 09/10 1000 by longer than 2 hours, Need Annmarie Patrick La mpert, Courtney, for intraoperative urine RN RN output monitoring, Abdominal surgery; Physician order, Prolonged Immobilization; indwelling catheter with core temperature probe; 100% silicone; 14; inserted at this facility ([facility], Med student); 1; 10; 10; none; drainage bag to dependent drainage; per protocol/policy; 09/10/18; 1000 Incision 09/07/18; 1551; abdomen; 09/07/18 1551 by 1039 by cristobal transverse; LDA not Annmarie Patrick, Aria Marsh, RN present upon assessment; RN 10/01/21; 1039 documented in this encounter Social History Tobacco [...] encounter OR Notes Anesthesia Postprocedure Evaluation - Trinidad Ansari MD - 09/07/2018 9:05 PM EDT Department of Anesthesiology Post-procedure Note Patient: Charlene Harmon Procedure Summary Date: 09/07/18 Room / Location: [facility] OR Anesthesia Start: 1501 Anesthesia Stop: 1958 Procedure: @BYPASS GRAFT, AORTOILIAC W\ VEIN CONDUIT (WRVU 41.88) (N/A Abdomen) Diagnosis: (bilateral renal artery stenosis) Surgeon: Isac Moody MD Responsible Provider: Trinidad Ansari MD Anesthesia Type: general ASA Status: 3 All Anesthesia Providers: Anesthesiologist: Viki Jhaveri MD; Davis Hidalgo DO; Trinidad Ansari MD FAMILY WORKER: Tyron Godfrey CRNA Protective Signal Repairer: Lexus Paul MD Vitals Value Taken Time BP Temp Pulse Resp SpO2 Pain Level Patient Location: ICU Level of Consciousness: Conscious but Sleepy Pain Management: Satisfactory Analgesia PONV: None Cardiovascular Status: At Baseline and Hemodynamically Stable Respiratory Status: Supplemental O2 (NC or FM) and Stable Respiratory Status Postoperative Fluid Status: Intravascular EUvolemia Possible Anesthetic Complications: NONE apparent at time of evaluation Final Primary Anesthesia Type: General (The anesthetic type performed was the same as planned.) Comments: Anesthesia Preprocedure Evaluation - Viki Jhaveri MD - 09/07/2018 10:27 AM EDT Pre-Anesthesia Evaluation for: Charlene Harmon a 67 y.o. female. Procedure(s): @BYPASS GRAFT, AORTOILIAC W\ VEIN CONDUIT (WRVU 41.88) Patient Active Problem List Diagnosis ??? Hypertensive urgency ??? Renal artery stenosis ??? Abdominal aortic aneurysm (AAA) without rupture ??? Acute hepatitis ??? Viral hepatitis B acute Past Medical History: Diagnosis Date ??? AAA (abdominal aortic aneurysm) [id number] angiogram; 3.2 cm infrarenal ??? Constipation ??? Dyslipidemia ??? Hypertension ??? Insomnia ??? Peripheral vascular disease ??? Renal artery stenosis R; per 2009 angiogram Past Surgical History: Procedure Laterality Date ??? HYSTERECTOMY ? ? PRO CATHETER 1ST ORDER W/WO ART PUNCT/FLUORO/S&I BILATERAL Bilateral 09/01/[address] (FIRST-ORDER), MAIN RENAL ART & ANY ACC, W/S&I; ANDREY (WRVU 6.99) performedby Regan Chen MD at [facility] MAIN OR ??? PRO UPPER GI ENDOSCOPY, DIAGNOSTIC 01/20/2014 EGD, UPPER GI ENDOSCOPY performed by Corby Cano MD at [facility] ENDOSCOPY ??? PRO UPPER GI ENDOSCOPY, DIAGNOSTIC N/A 07/28/2017 EGD, UPPER GI ENDOSCOPY performed by Snow Liao MD at [facility] ENDOSCOPY Social History Tobacco Use ??? Smoking status: Former Smoker Packs/day: 0.50 ??? Smokeless tobacco: Former User Quit date: 07/14/2012 ??? Tobacco comment: smoked for ~45 years up to 1 ppd at [facility], quit ~1999 Substance Use Topics ??? Alcohol use: Yes Comment: a few glasses of wine, rarely 4 times a year Social History Substance and Sexual Activity Drug Use No Allergies Allergen Reactions ??? Lisinopril Rise in creatinine Medications: MAR and/or home medications have been reviewed. Physical Exam: Most Recent Vitals: 09/07/18 1000 BP: 157/65 Pulse: 71 Resp: 13 Temp: 37.2 ??C (99 ??F) SpO2: 94% Body mass index is 17.71 kg/m??. Height: 154.9 cm (5' 0.98) Weight: 42.5 kg (93 lb 11.1 oz) Airway Assessment: Mallampati: II TM distance: >3 FB Neck ROM: full Cardiovascular Assessment: Rhythm: regular Pulmonary Assessment: Dental Assessment: - normal exam Misc Assessment: Anesthesia Plan: ASA 3 general, with a(n) intravenous induction 67 yo female presents for RIGHT ileorenal bypass given bilateral renal artery stenosis. PMH also significant for infrarenal AAA, HTN, HLD, former smoker, combined systolic and diastolic HF (last EF 54%on 08/30/18), moderate MR, hepatitis B, CKD. Patient presented to OSH 1 week ago with hypertensive urgency and acute exacerbation of CHF with acute hypoxic resp failure and GAEL. Has right IJ triple lumenin addition to 22 and 24g PIV. Plan for and risks of anesthesia discussed in detail with patient and spouse, questions answered, consent obtained. Patient declines epidural. Plan GETA with standard ASA monitors and adequate IV access, arterial line. Likely large bore central access will be necessary. Region - Other Informed Consent: Anesthetic plan and risks discussed with patient and spouse. Use of blood products discussed with patient and spouse who consented to blood products. Plan discussed with attending and resident. PAT [...] Action Action Date Dose Rate Site ceFAZolin (ANCEF) 1g in dextrose 5% Given 09/07/2018 6:43 PM EDT 1 g 50mL PRN, Starting on Thu09/07/18 at 1542, Until Thu09/07/18 at 2002, Administer over 30 Minutes, Anesthesia Intra-op Given 09/07/2018 3:42 PM EDT 1 g dexamethasone (DECADRON) injection Given 09/07/2018 3:26 PM EDT 4 mg PRN, Starting on Thu09/07/18 at 1526, Until Thu09/07/18 at 2002, Anesthesia Intra-op, Routine fentaNYL 50 mcg/mL multi-dose injection Given 09/07/2018 3:10 PM EDT 100 mcg PRN, Starting on Thu09/07/18 at 1510, Until Thu09/07/18 at 2002, Anesthesia Intra-op, Routine heparin (porcine) injection Given 09/07/2018 5:39 PM EDT 4,000 Units PRN, Starting on Thu09/07/18 at 1739, Until Thu09/07/18 at 2002, Anesthesia Intra-op, Routine HYDROmorphone (DILAUDID) injection Given 09/07/2018 7:31 PM EDT 0.5 mg PRN, Starting on Thu09/07/18 at 1931, Until Thu09/07/18 at 2002, Anesthesia Intra-op, Routine lactated ringers infusion New Bag 09/07/2018 3:02 PM EDT CONTINUOUS PRN, Starting on Thu09/07/18 at 1502, Until Thu09/07/18 at 2002, Anesthesia Intra-op lidocaine (PF) (XYLOCAINE) 100 mg/5 mL (2 %) Given 9 3:10 PM EDT 30 mg injection PRN, Starting on Thu09/07/18 at 1510, Until Thu09/07/18 at 2002, Anesthesia Intra-op, Routine niCARdipine 0.2 mg/mL Restarted 09/07/2018 4:54 PM [...] 6:48 AM EDT 2.5 mg/hr 12.5 mL/hr ondansetron (ZOFRAN) injection Given 09/07/2018 7:23 PM EDT 4 mg PRN, Starting on Thu09/07/18 at 1923, Until Thu09/07/18 at 2002, Anesthesia Intra-op, Routine PHENYLephrine (JUAN JOSE-SYNEPHRINE) New Bag 09/07/2018 4:09 PM 30 mcg/m in 22.5 mL/hr 20 mg in sodium chloride 250 mL EDT (standard ADULT & Pedi greater than 20kg) infusion CONTINUOUS PRN, Starting on Thu09/07/18 at 1609, Until Thu09/07/18 at 2002, Anesthesia Intra-op, Routine PHENYLephrine in NS (PF) (JUAN JOSE-SYNEPHRINE) 0.8 Given 3:10 PM EDT 80 mcg mg/10 mL (80 mcg/mL) multi-dose injection Syrg PRN, Starting on Thu09/07/18 at 1510, Until Thu09/07/18 at 2002, Anesthesia Intra-op, Routine propofol (DIPRIVAN) 10 mg/mL bolus injection Given 3:10 PM EDT 100 mg (Anesthesia) PRN, Starting on Thu09/07/18 at 1510, Until Thu09/07/18 at 2002, Anesthesia Intra-op protamine injection Given 09/07/2018 7:00 PM EDT 30 mg PRN, Starting on Thu09/07/18 at 1900, Until Thu09/07/18 at 2002, Anesthesia Intra-op, Routine rocuronium (ZEMURON) multi-dose injectio n Given 09/07/2018 7:09 PM EDT 10 mg PRN, Starting on Thu09/07/18 at 1510, Until Thu09/07/18 at 2002, Anesthesia Intra-op, Routine Given 09/07/2018 3:10 PM EDT 50 mg sugammadex (BRIDION) 100 mg/mL injection Given 09/07/2018 7:31 PM EDT 200 mg PRN, Starting on Thu09/07/18 at 1931, Until Thu09/07/18 at 2002, Anesthesia Intra-op, Routine documented in this encounter Care Teams Refrigeration Plant Cork Insulator Relationship Specialty Start Date End Date Sanjuanita Lee MD PCP - General 03/05/13 12/23/[address] [place] [address] documented as of this encounter
--- OUTSIDE RECORDS SUMMARY | 2022-02-22 23:37 | XMS_ITS | Encounter Summary ---
:1950 Author Organization [facility] [place] [address] Care Team Providers Name Role Phone Sanjuanita Lee MD Primary Care Provider Reason for Visit Auth/Cert Specialty Diagnoses / Procedures Referred By Contact Refer red To Contact Diagnoses Hypertensive urgency RENAL ARTERY STENOSIS Procedures EMERGENCY IPI Referral ID Status Reason Start Date Expiration Date Visits Requ ested Visits Authorized [id number] 1 1 Encounter Details Date Type Department Care Team Description 09/07/2018 Surgery Main Operating Room Unique Moody, @B YPASS GRAFT, [place] [place] AORTOILIAC W\ [facility] CONDUIT (WRVU 41.88) [facility] [place] [address] [place] [address] [phone] (Wo rk) Social History Tobacco Use Types [...] Sign Reading Time Taken Comments Blood Pressure 159/56 09/07/2018 2:00 PM EDT Pulse 60 09/07/2018 2:00 PM EDT Temperature 37.4 ??C (99.3 ??F) 09/07/2018 2:00 PM EDT Respiratory Rate 15 09/07/2018 2:00 PM EDT Oxygen Saturation 96% 09/07/2018 2:00 PM EDT Inhaled Oxygen Concentration - - Weight 42.5 kg (93 lb 11.1 oz) 09/07/2018 6:00 AM EDT Height 154.9 cm (5' 0.98) 09/07/2018 6:00 AM EDT Body Mass Index 16.92 09/07/2018 6:00 AM EDT documented in this encounter Discharge Summaries Tess Duarte MD - 09/14/2018 3:02 PM EDT Discharge Summary Patient Name: Pretty Harmon Patient Age: 67 y.o. Language: Slovenian Race: White Ethnicity: Not nor Admit date: [...] vascular, and CKD Cr ~2 presented to [facility] w hypertensive urgency and acute on chronic diastolic CHF. Nitroglycerin drip was ineffective and nicardipine was started. Initially required BIPAP. Off since 5/4 am.Was placed [...] on iliac, end to end on renal, cahto right renal artery origin ligated. Completion duplex [...] Patient Instructions You were admitted to [facility] and had a right iliac artery to [...] For any problems or questions please call [phone] KIMANI Ying, sole layer Nurse Clinician For issues on weeknights after 5pm and weekends please call [phone] and ask for the Vascular Fellow personnel representative. General Instructions None Future Appointments and Orders Future Appointments and Orders Future Appointments Provider Department Dept Phone 09/23/2018 9:30 AM Unique Moody MD Vascular Surgery at [place] Arrive at: Formal Wear Rental Clerk Area Future Orders Complete By Expires Referral to Home Health - at DISCHARGE [[id number] CPT(R)] As directed Process Instructions: Scheduling Instructions: Comments: DOCUMENTATION FOR VNA SERVICES (INCLUDING THOSE PATIENTS WITH MEDICARE COVERAGE REQUIRING HOME VNA SERVICES AND/OR HOSPICE SERVICES) PATIENT'S LOCATION: Pretty Harmon [address] [place] [address] [phone] (home) Cell: No relevant phone numbers on file. Analyst Competitive Intelligence's Name: spouse Rodolfo In discussion with the attending physician, it is certified that this patient is under their care and that they, or a Nurse Practitioner,Clinical Nurse specialist or Physician Well Digger who is working directly with them, had [...] complaining of dyspnea HOME HEALTH CARE AGENCY: [facility]. PHONE: [phone] FAX: [phone] Start of care: Within 24-48 hours of [...] from this patient'sPCP: Sanjuanita Lee MD [phone] [facility] [id number] All VNA agencies which cover the area of patient's residence have been reviewed, either verbally or in writing, and patient/family have chosen the home health care agency noted Questions: Agency name and contact information: [facility] Patient location post discharge: home What services are requested: Registered Nurse Speech Therapy Start date: 09/15/2018 Responsible MD post discharge contact info: PCP Discharge References/Attachments None documented in this encounter Discharge Instructions Patient Mally Barger RN - 09/10/2018 1:24 PM EDT You were admitted to [facility] and had a right iliac artery to [...] For any problems or questions please call [phone] KIMANI Ying, sole layer Nurse Clinician For issues on weeknights after 5pm and weekends please call [phone] and ask for the Vascular Fellow personnel representative. documented in this encounter Medications at Time [...] referrals are placed. Patient requests referral to [facility]. PHONE: [phone] FAX: [phone]. Expected date of discharge: 09/14/2018. Referral routed to the Vermin Exterminator for matching with agency/vendor and to provide any required information. Mahogany Tomas RN [address] Patch Washer Pager: [phone] Beba Aaron MD - 09/14/2018 [...] 0550 09/12/18 0800 09/12/18 0110 09/08/18 1500 09/07/185 09/03/18 0655 NA 137 139 -- 139 [...] electrolyte abnormalities.no overt fluid overload,uremic sx needing BINDERY MACHINE TENDER. - Daily weights,Low salt diet Will sign off . Please call with any questions.Discussed with Beba [place] MD Nephrology Fellow . #[id number] Tess Duarte MD - 09/13/2018 7:35 PM [...] herself - Floor status, full code Tess Duarte Pager: [phone] Kacie Bills RN - 09/13/2018 6:06 PM EDT A&OX4. VSS and on RA. Lungs clear, HRR; murmur detected. +BS and voiding spontaneously. 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 Medial thigh incision with alex; CDI; MIRNA. [...] Diagnosis Date ??? AAA (abdominal aortic aneurysm) [id number] angiogram; 3.2 cm infrarenal ??? Constipation ??? [...] of Nutrition Needs: Total Energy Estimated Needs: 9887-2974 kcal Method for Estimating Needs: 25-30 kcal/kg [...] diet Trial Boost Breeze TID ? Narayan nomi Morley RD, LD Pager [phone] Wilman Treadwell MD - 09/13/2018 10:20 AM [...] electrolyte abnormalities.no overt fluid overload,uremic sx needing BINDERY MACHINE TENDER. - Daily weights,Low salt diet We will continue to follow. Please call with any questions.Discussed with Beba [place] MD Nephrology Fellow . #[id number] Mandy Foster RN - 09/12/2018 5:38 PM EDT 09/12/18 6056 Safety Safety WDL WDL Visual Checks Awake Safety Factors call light in reach Safety Interventions Safety Promotion/Fall Prevention safety round/check completed All Alarms alarm(s) activated and audible Crude Oil Driver Protection tubing secured Medication Review/Management medications reviewed Environmental Safety Modification clutter free environment maintained Infection Prevention environmental surveillance performed Isolation Precautions standard precautions maintained Type of Monitor Aliyah Chang arrived to the floor a/o with no complaints. She has reg HR, clear lungs, tingling bowel sounds, right transverse incision and right inner thigh incision stapled well approximated and open to air Bruising present. She is having a possible, oriented to her room, call mathew and aliyah initiated. Nuha Michael MD - 09/12/2018 10:36 [...] 1820 09/11/18 0730 09/10/18 0245 09/08/18 1500 09/07/18 2035 09/03/18 0655 NA -- 139 -- 141 145 [...] - BP controlled lupe PO BP medications with labetalol 200 mg PO BID,Procardia XL 30 mg BID and titrted off nicardipine.Recommend to continue he current regimen and will adjust meds as needed - Monitor Is and Os,Daily weight,avoid contrast studies or NSAID's. -No acute electrolyte abnormalities.no overt fluid overload,uremic sx needing BINDERY MACHINE TENDER. -Daily weights -Low salt diet We will continue to follow. Please call with any questions.Discussed with Dr.Remillard Nuha Young Nephrology Fellow . #[id number] Wilman Treadwell MD - 09/12/2018 8:54 AM [...] Duplex ultrasound 09/10 Scan pending ?? JAC Pretty Harmon is a 67 y.o. female [...] PGY -2 Section of Vascular Surgery, Pager [phone] Nuha Michael MD - 09/11/2018 10:20 AM [...] extremities without issues. Labs: CBC: Recent Labs 09/11/1872909/10/1824409/09/18 0250 WBC 11.8* 14.5* 18.8* HGB 10.3* [...] electrolyte abnormalities.no overt fluid overload,uremic sx needing BINDERY MACHINE TENDER. - improving creatinine and robust U.out put -Daily weights -Low salt diet We will continue to follow. Please call with any questions.Discussed with Dr.Remillard Nuha Young Nephrology Fellow . #[id number] Wilman Treadwell MD - 09/11/2018 8:50 AM [...] function related to reperfusion of her kidney. Ron Thom Benjamin - 09/11/2018 7:15 AM EDT Vascular surgery [...] PGY -2 Section of Vascular Surgery, Pager [phone] Beba Aaron MD - 09/10/2018 3:38 PM [...] extremities without issues. Labs: CBC: Recent Labs 09/10/1824409/09/18 02509/08/18 1500 WBC 14.5* 18.8* 21.6* HGB 11.2* 11.9 11.5* PLATELET 244 223 249 Chemistry: Recent Labs 09/10/1824409/09/18 0250 09/08/18 1500 09/07/18 2035 09/03/18 0655 NA 145 140 137 < [...] in this interval not displayed. Recent Labs 09/10/18 02409/09/18 0250 09/08/18 1500 09/08/18 0515 09/03/18 0035 [...] questions. Beba Aaron MD Nephrology Fellow . #[id number]. Thom Velasquez - 09/10/2018 12:18 PM EDT [...] PGY -2 Section of Vascular Surgery, Pager [phone] Wilman Treadwell MD - 09/10/2018 10:34 AM [...] Diagnosis Date ??? AAA (abdominal aortic aneurysm) [id number] angiogram; 3.2 cm infrarenal ??? Constipation ??? [...] of Nutrition Needs: Total Energy Estimated Needs: 0044-8223 kcal Method for Estimating Needs: 25-30 kcal/kg [...] to clears. Neena Morley RD, LD Pager [phone] Thom Velasquez - 09/09/2018 3:49 PM EDT Vascular surgery [...] PGY -2 Section of Vascular Surgery, Pager [phone] Beba Aaron MD - 09/09/2018 3:38 PM [...] 223 249 216 Chemistry: Recent Labs 09/09/1824909/08/18149909/08/18 0509/07/18 2035 09/03/18 0655 NA 140 137 138 [...] in this interval not displayed. Recent Labs 09/09/18 02509/08/18 1500 09/08/18 0515 09/07/18 0030 09/03/18 0035 09/02/18 0329 [...] questions. Beba Aaron MD Nephrology Fellow . #[id number]. Associated attestation - Tyron Kemp MD - [...] this given potential acute impact on GFR. HarMookie mccormick RN - 09/09/2018 10:54 AM EDT Pt transported to [facility] with all belongings and VSS, 2L [...] Diagnosis Date ??? AAA (abdominal aortic aneurysm) [id number] angiogram; 3.2 cm infrarenal ??? Constipation ??? Dyslipidemia ??? Hypertension ??? Insomnia ??? Peripheral vascular disease ??? Renal artery stenosis R; per 2009 angiogram Past Surgical History: Procedure Laterality Date ??? HYSTERECTOMY ? ? PRO CATHETER 1ST ORDER W/WO ART PUNCT/FLUORO/S&I BILATERAL Bilateral 09/01/[address] (FIRST-ORDER), MAIN RENAL ART & ANY ACC, W/S&I; ANDREY (WRVU 6.99) performedby Greyson Chen MD at [facility] MAIN OR ??? PRO UPPER GI ENDOSCOPY, DIAGNOSTIC 01/20/2014 EGD, UPPER GI ENDOSCOPY performed by Corby Cano MD at [facility] ENDOSCOPY ??? PRO UPPER GI ENDOSCOPY, DIAGNOSTIC N/A 07/28/2017 EGD, UPPER GI ENDOSCOPY performed by Snow Liao MD at [facility] ENDOSCOPY Current Medications: ??? pantoprazole 40 mg [...] PGY -2 Section of Vascular Surgery, Pager [phone] Hiwot Ramirez MSW - 09/08/2018 11:08 AM EDT Attempted to meet with patient to discuss Advance Directives, but she was working with PT. Attempted again later and she was with a provider. Office of Case Management- Social Work Note CHAKA Rush, AC Pager [phone] Beba Aaron MD - 09/08/2018 9:50 AM [...] extremities without issues. Labs: CBC: Recent Labs 09/08/1830 09/07/18203409/07/180 WBC 22.4* 24.2* 11.7* HGB 11.6* 12.7 [...] in this interval not displayed. Recent Labs 09/08/1851409/07/18203409/07/180 09/06/18 0600 09/03/18 0035 09/02/18 0329 08/31/18 [...] 0.4 ALBUMIN 3.9 ALKPHOS 57 ALT 11 IMPRESSION/ RECOMMENDATIONS:Pretty Harmon is a pleasant 67 [...] questions. Beba Aaron MD Nephrology Fellow . #[id number]. Associated attestation - Tyron Kemp MD - [...] Diagnosis Date ??? AAA (abdominal aortic aneurysm) [id number] angiogram; 3.2 cm infrarenal ??? Constipation ??? Dyslipidemia ??? Hypertension ??? Insomnia ??? Peripheral vascular disease ??? Renal artery stenosis R; per 2009 angiogram Past Surgical History: Procedure Laterality Date ??? HYSTERECTOMY ? ? PRO CATHETER 1ST ORDER W/WO ART PUNCT/FLUORO/S&I BILATERAL Bilateral 09/01/[address] (FIRST-ORDER), MAIN RENAL ART & ANY ACC, W/S&I; ANDREY (WRVU 6.99) performedby Greyson Chen MD at [facility] MAIN OR ??? PRO UPPER GI ENDOSCOPY, DIAGNOSTIC 01/20/2014 EGD, UPPER GI ENDOSCOPY performed by Corby Cano MD at [facility] ENDOSCOPY ??? PRO UPPER GI ENDOSCOPY, DIAGNOSTIC N/A 07/28/2017 EGD, UPPER GI ENDOSCOPY performed by Snow Liao MD at [facility] ENDOSCOPY Current Medications: ??? lidocaine 1 mL [...] MD/SANDY, PGY-5 Section of Vascular Surgery, Pager [phone] Beba Aaron MD - 09/07/2018 9:58 AM [...] Labs: CBC: Recent Labs 09/07/18 0030 09/06/18 0600 09/05/18 0150 WBC 11.7* 10.6* 12.0* HGB 11.9 13.2 12.3 PLATELET 223 228 243 Chemistry: Recent Labs 09/07/18 0030 09/06/18 1710 09/06/18 0855 09/06/18 0600 09/03/18 0655 09/03/18 0035 09/02/18 0329 NA 136 [...] questions. Beba Aaron MD Nephrology Fellow . #[id number]. Associated attestation - Tyron Kemp MD - [...] - 09/07/2018 6:26 AM EDT ICU Blue (#[id number]) Progress Note Patient info: Name: Pretty Harmon : 1950 PCP: Sanjuanita Lee MD PCP phone number: [phone] Date of Admission: 08/29/2018 ( Hospital Day [...] 42.9 kg (94 lb 9.2 oz) 09/05/18 0600 46.3 kg (102 lb 1.2 [...] 09/07/18 0030 09/06/18 1710 09/06/18 0855 09/06/18 0609/05/18 0150 NA 136 -- 136 140 -- [...] Dax Sanders MD, PGY-1 09/07/2018 Blue Team #[id number] Associated attestation - Anurag Correa MD - [...] supporting interventions and documentation on the unit. Anurag Correa MD Marlyn, Leah Scott MD - 09/06/2018 6:18 PM [...] MD/SANDY, PGY-5 Section of Vascular Surgery, Pager [phone] Meera Taylor RCP - 09/06/2018 2:40 PM EDT 09/06/18 1000 Oxygen Therapy O2 Device NC O2 Flow Rate (L/min) 2 L/min SpO2 95 % Resp 22 pt remains on 2L sheri well. Pt has a prn duoneb treatment that has not been needed this shift Will continue to monitor pt / cxr IMPRESSION Pulmonary vascular congestion and interstitial [...] applicable: [X] N/A CPG GOAL OUTCOME EVALUATION: Beba Aaron MD - 09/06/2018 9:55 AM EDT NEPHROLOGY PROGRESS NOTE PATIENT: Pretty Harmon : 1950 REASON FOR CONSULTATION: AGEL in the setting of hypertensive urgency and [...] without issues. Labs: CBC: Recent Labs 09/06/18 0600 09/05/18 0150 09/04/18 0225 WBC 10.6* 12.0* 13.5* HGB 13.2 12.3 12.0 PLATELET 228 243 221 Chemistry: Recent Labs 09/06/18 0600 09/05/18 0254 09/05/18 0150 09/04/18 1320 09/03/18 0655 [...] questions. Beba Aaron MD Nephrology Fellow . #[id number]. Associated attestation - Tyron Kemp MD - [...] - 09/06/2018 6:33 AM EDT ICU Blue (#[id number]) Progress Note Patient info: Name: Pretty Harmon : 1950 PCP: Sanjuanita Lee MD PCP phone number: [phone] Date of Admission: 08/29/2018 ( Hospital Day [...] Infusions: Continuous Infusions: ??? niCARdipine Stopped (09/06/18 06) Objective: Vitals Last value Range last 24 [...] 09/06/2018 0633 Last data filed at 09/06/2018 0600 Gross per 24 hour Intake 370.4 ml [...] 1320 09/04/18 0225 09/03/18 1957 09/03/18 0655 NA -- 137 131* 137 135 [...] requirements have remained stable since transition to [facility] from [facility]. Thoracic surgery currently considering intervention tomorrow pending [...] remains stable since transitioning from [facility] to [facility] - Ct to titrate oxygen - If [...] Dax Sanders MD, PGY-1 09/06/2018 Blue Team #[id number] Associated attestation - Anurag Correa MD - [...] supporting interventions and documentation on the unit. Anurag Correa MD Cecilia hargrovey, [facility] - 09/06/2018 6:08 AM EDT Respiratory Care [...] extremities without issues. Labs: CBC: Recent Labs 09/05/1814909/04/1822409/02/181406 WBC 12.0* 13.5* 9.7* HGB 12.3 12.0 11.8 PLATELET 243 221 229 Chemistry: Recent Labs 09/05/18 0254 09/05/18 0150 09/04/18 1320 09/04/1822409/03/18 0655 09/03/18 0035 09/02/18 0329 NA -- [...] questions. Beba Aaron MD Nephrology Fellow . #[id number]. Associated attestation - Tyron Kemp MD - [...] - 09/05/2018 6:47 AM EDT ICU Blue (#[id number]) Progress Note Patient info: Name: Pretty Harmon : 1950 PCP: Sanjuanita Lee MD PCP phone number: [phone] Date of Admission: 08/29/2018 ( Hospital Day 7 days ) Responsible Attending:Wilman Ranodlph MD Active Hospital Problems Diagnosis ??? Hypertensive [...] 46.3 kg (102 lb 1.2 oz) 09/04/18 022 49.3 kg (108 lb 11 oz) 09/03/18 0400 51 kg (112 lb 7 oz) 09/02/18 06 48.7 kg (107 lb 5.8 oz) 09/01/18 0600 47.4 kg (104 lb 8 oz) 08/31/18 06 47 kg (103 lb 9.9 oz) 08/29/18 1832 47.4 kg (104 lb 8 oz) 08/29/18 182 47.4 kg (104 lb 8 oz) Admit [...] Dax Sanders MD, PGY-2 09/05/2018 Blue Team #[id number] Greyson Beckford, BINDERY MACHINE TENDER - 09/04/2018 11:03 PM EDT Respiratory Care [...] PLATELET 221 229 220 Chemistry: Recent Labs 09/04/1822409/03/18195609/03/1865409/03/185 09/02/18 0329 NA 137 135 131* 133* 134* K 3.6 4.0 5.2* 4.7 4.8 CL 98 97* 99 98 98 CO2 23 22 19* 20* 20* BUN 53* 51* 50* 48* 36* CREATININE 2.73* 2.76* 2.80* 2.89* 2.71* GLUCOSE -- -- 140 172 142 Recent Labs 09/04/1822409/03/18195609/03/1865409/03/18 0035 09/02/189 08/31/18 0015 CALCIUM 8.7 8.5 8.4* 8.2* [...] questions. Beba Aaron MD Nephrology Fellow . #[id number]. Associated attestation - Tyron Kemp MD - [...] the unit. Wilman Randolph MD, PhD 09/04/2018 Rhea Cevallos - 09/04/2018 8:04 AM EDT ICU Blue (#[id number]) Progress Note Patient info: Name: Pretty Harmon : 1950 PCP: Sanjuanita Lee MD PCP phone number: [phone] Date of Admission: 08/29/2018 ( Hospital Day [...] Continuous Infusions: ??? niCARdipine 5 mg/hr (09/04/18 06) Objective: Vitals Last value Range last 24 [...] 09/01/18 1535 Right groin Labs: Recent Labs 09/04/18 0225 09/02/18 1407 WBC 13.5* 9.7* HGB 12.0 [...] Rhea Cevallos MD, PGY-2 09/04/2018 Blue Team #[id number] Danisha Yu RCP - 09/04/2018 1:47 AM [...] questions arise over the weekend please page personnel representative vasc attending Greyson Trevizo, who isalso familiar with this case. Leah Cline MD/SANDY, PGY-5 Section of Vascular Surgery, Pager [phone] Wilman Lugo RCP - 09/03/2018 3:45 PM [...] 45% and 60% FiO2 Plan for NIV [facility] Lugo RCP Wilman Randolph MD - 09/03/2018 [...] - 09/03/2018 7:14 AM EDT ICU Blue (#[id number]) Progress Note Patient info: Name: Pretty Harmon : 1950 PCP: Sanjuanita Lee MD PCP phone number: [phone] Date of Admission: 08/29/2018 ( Hospital Day 5 days ) Responsible Attending:Thom Munguia MD Active Hospital Problems Diagnosis ??? [...] Infusions: Continuous Infusions: ??? niCARdipine Stopped (09/02/18 1716) Objective: Vitals Last value Range last 24 [...] Gas) No results found for: PHART, PO2ART, FFH2FYH, GIY0DOV Microbiology: Microbiology Results (Last 30 days) No [...] WC Continuous Infusions: ??? niCARdipine Stopped (09/02/18 1716) PRN Meds:.BUpivacaine (PF), lidocaine, iodixanol, ipratropium-albuterol, HYDROmorphone, [...] to nephrology recommendations regarding diuresis and if BINDERY MACHINE TENDER is warranted.hydration due to concerns of poor renal perfusion. - monitor volume status - BMP QD - Vascular as above - Appreciate nephrology consultation ?? Gastrointestinal/Metabolic/Nutrition - NTD Hematology/Infection - NTD Endocrine #HYPOTHYROIDISM: - Continued levothyroxine ?? # Routine Diet: Renal Diet DVT PPX: Heparin GI PPX: Pantoprazole Activity: As tolerated CODE STATUS: Full Code Dax Sanders MD, PGY-1 09/03/2018 Blue Team #[id number] Candy Dumont RN - 09/03/2018 7:04 AM EDT [...] [facility] on bipap and resting comfortably. Greyson Beckford RRT - 09/03/2018 5:51 AM EDT Respiratory Therapy NIV Note NIV Settings: NIV Mode: S/T IPAP (cmH20): 12 EPAP (cmH20): 8 FiO2 (%): 90 % NIV Measurements: Resp: 19 Mve: 12.5 Leak (L/min): 18 L/min Vte: 660 SpO2: 96 % Laboratory: No results found for: PHART, LDJ7SJS, PO2ART, YLX2HUA, BEART Skin Assessment: NIV Skin Assessment WDL: WDL Mepilex Applied: Yes Nares Assessment WDL: WDL Breath Sounds: coarse, crackles throughout Assessment: Patient transported to ICU due to high O2 requirement on HFNC. Bipap initiated in unit and patient has tolerated well. GREYSON BECKFORD, BINDERY MACHINE TENDER Jeana Birmingham RN - 09/03/2018 4:33 AM [...] 06 47 kg (103 lb 9.9 oz) 08/29/18 183 47.4 kg (104 lb 8 oz) 08/29/18 182 47.4 kg (104 lb 8 oz) Body [...] leads QTCCALC 464 VASCULAR: Recent Labs 08/30/18 193 VBTEXTRPT Department: Vascular Surgery Lab Patient: [id number] (PRETTY HARMON) CPT: 94755 ICD10: I70.1 Referring Physician: LILIANA ECHEVERRIA Indications: [...] 3-4 (baseline creatinine 2) [facility] & systolic CHF. ADDITIONAL HISTORY: The patient was treated at OSH with a nicardipine gtt & lasix gtt. She initially required BiPAP for acute hypoxic respiratory failure but had been off BiPAP for ~ 36 hours by the time she was transferred. Due to ongoing need for nicardipine gtt, she was transferred to [facility] for consideration of renal artery interventions. Plan:?? [...] - Started on IV bolus lasix at [facility] - EKG at OSH showed STD V5-V6 [...] Code Family N/A PCP Sanjuanita Lee MD [phone] Attestation IPI Certification I certify that I am a D-H credentialed attending provider with admitting privileges and that the patient meets or has met medical necessity to require an inpatient IPI level of care meeting a minimum of two midnights or is on the [facility] inpatient only procedure list (status C) due [...] Diagnosis Date ??? AAA (abdominal aortic aneurysm) [id number] angiogram; 3.2 cm infrarenal ??? Constipation ??? [...] encounter: 48.7 kg (107 lb 5.8 oz). [place] Body Weight (IBW): [place] body weight: 47.8 kg (105 lb 6.1 [...] nuts and peanut butter. TAMI Swartz Pager: [phone] Doris Lamb RN - 09/02/2018 10:02 AM EDT Paged [...] back from team at this time. 1245 paged MD and made aware of no UOP so [...] 93 % SpO2: [88 %-94 %] 09/01 0701 - 09/02 0700 In: 1608 [P.O.:325; I.V.:1283] Out: 680 [Urine:675] [...] Hold] melatonin 3 mg Oral Nightly ??? [JUN Hold] aspirin 81 mg Oral Daily ??? [JUN Hold] atorvastatin 40 mg Oral QPM ??? [JUN Hold] gabapentin 800 mg Oral Nightly ??? [JUN Hold] levothyroxine 37.5 mcg Oral QAM ??? [JUN Hold] chlorhexidine 15 mL Oral BID ??? [JUN Hold] sodium chloride 0.9 % 5 mL Intravenous BID ??? [JUN Hold] carvedilol 37.5 mg Oral BID WC Continuous infusions: ??? [JUN Hold] niCARdipine 5 mg/hr (09/01/18 180) PRN: naloxone, HYDROmorphone, ondansetron, BUpivacaine (PF), lidocaine, iodixanol, ipratropium-albuterol, [JUN Hold] HYDROmorphone, [JUN Hold] sodium chloride 0.9 %, [JUN Hold] lidocaine, [Jun] acetaminophen Interval History: - SOB has improved [...] 47.4 kg (104 lb 8 oz) 08/29/18 182 47.4 kg (104 lb 8 oz) Body [...] 1.93* 1.88* FSBG Trend Recent Labs 08/29/18 1831 POCGLU 115 MICRO: No results for input(s): URINECULTURE in the last 720 hours. No results for input(s): GRAMSTAIN, BFCX, LOWERRESPCX, TISSUECX in the last 720 hours. No results for input(s): BLOODCX in the last 720 hours. ECG: Recent Labs 08/29/18 210 DIAGLINE Normal sinus rhythm Possible Left atrial enlargement Left ventricular hypertrophy with repolarization abnormality Abnormal ECG No previous ECGs available Confirmed by MD Oliver, Frantz Preston ([id number]) on 08/30/2018 7:51:46 AM QTCCALC 476 VASCULAR: Recent Labs 08/30/181938 VBTEXTRPT Department: Vascular Surgery Lab Patient: [id number] (PRETTY HARMON) CPT: 41346 ICD10: I70.1 Referring Physician: LILIANA ECHEVERRIA Indications: [...] 3-4 (baseline creatinine 2) [facility] diastolic & systolic CHF. ADDITIONAL HISTORY: The patient was treated at OSH with a nicardipine gtt & lasix gtt. She initially required BiPAP for acute hypoxic respiratory failure but had been off BiPAP for ~ 36 hours by the time she was transferred. Due to ongoing need for nicardipine gtt, she was transferred to [facility] [place] for consideration of renal artery interventions. Plan:?? [...] - Started on IV bolus lasix at [facility] [place] - EKG at OSH showed STD V5-V6 [...] Code Family N/A PCP Sanjuanita Lee MD [phone] Attestation IPI Certification I certify that I am a D-H credentialed attending provider with admitting privileges and that the patient meets or has met medical necessity to require an inpatient IPI level of care meeting a minimum of two midnights or is on the [facility] inpatient only procedure list (status C) due to: Acute CHF requiringIV lasix Team (17/11 Coverage) 2500 Chelsea Walters RN - 09/01/2018 4:53 PM EDT 1653- on arrival to pacu, pt is drowsy, easily aroused, oriented x 4. breathins is clear, equal and non labored, however, o2 sat at 88% on 6l via simple mask. Follows commands. Bedrest x 1800. Nicardipine gtt infusing at 5mg/hr from OR. Dr. Mojica, attending anesthesiologist at bs. States given pt hx, keep sats greater than 89%. 1715- Dr. Jasso at bs to eval pt's hypoxia. Plan to order CXR. 1756- XRAY dept made aware of pending stat CXR. 1800 - STAT CXR done. 1810- report called to CARMELITA, rn receiving pt in ISCU bed 81a. [id number] pt care from Rosalia, UROLOGIST PHYSICIAN p 30 min break. HOB elevated to 30 degrees after two hours of bedrest s complications from rt femoral access site. con't to monitor. 1914 - Vascular surgery wireless internet installer paged. Notified hob elevated 30 degress p two hours of bedrest s complications. Pending return phone calls. 1927- Leah Cline, vascular surgery resident at bs for eval. States ok for pt to [...] Labs: Recent Labs 09/01/18 0020 08/31/18 0015 08/29/182042 WBC 6.7 8.1 8.8 HGB 11.5* 12.1 12.5 HCT 32.9* 34.6* 35.6* PLATELET 220 235 235 PT -- -- 12.2 INR -- -- 1.1 Recent Labs 09/01/18 0020 08/31/18 0015 08/30/18 0800 08/29/18 2043 NA 134* [...] as well as some overall increased SOB/WOB; notified, 40 mg IV Lasix given this [...] hgb, hct plt Recent Labs 08/31/18 0015 08/29/182042 WBC 8.1 8.8 HGB 12.1 12.5 HCT [...] last 720 hours. ECG: Recent Labs 08/29/18 210 DIAGLINE Normal sinus rhythm Possible Left atrial enlargement Left ventricular hypertrophy with repolarization abnormality Abnormal ECG No previous ECGs available Confirmed by MD Oliver, Frantz Preston ([id number]) on 08/30/2018 7:51:46 AM QTCCALC 476 VASCULAR: Recent Labs 08/30/181938 VBTEXTRPT Department: Vascular Surgery Lab Patient: [id number] (PRETTY HARMON) CPT: 32931 ICD10: I70.1 Referring Physician: LILIANA ECHEVERRIA Indications: [...] 3-4 (baseline creatinine 2) [facility] & systolic [facility]F. ADDITIONAL HISTORY: The patient was treated at OSH with a nicardipine gtt & lasix gtt. She initially required BiPAP for acute hypoxic respiratory failure but had been off BiPAP for ~ 36 hours by the time she was transferred. Due to ongoing need for nicardipine gtt, she was transferred to [facility] for consideration of renal artery interventions. Plan:?? [...] - Started on IV bolus lasix at [facility] [place] - EKG at OSH showed STD V5-V6 [...] Code Family N/A PCP Sanjuanita Lee MD [phone] Attestation IPI Certification I certify that I am a D-H credentialed attending provider with admitting privileges and that the patient meets or has met medical necessity to require an inpatient IPI level of care meeting a minimum of two midnights or is on the [facility] inpatient only procedure list (status C) due [...] 97 % SpO2: [90 %-97 %] 08/30 0701 - 08/31 07 In: 1649.9 [P.O.:1360; I.V.:289.9] Out: 1905 [Urine:1905] Physical Exam: General: NAD, resting comfortably, pleasant, [...] do her case himself He is at [facility] tomorrow therefore plan for renal stent (bilat) on Thursday Pt seen at bedside w Dr Fransisco Cline MD/SANDY, PGY-5 Section of Vascular Surgery, Pager [phone] Ren Hoffmann MD - 08/30/2018 8:38 AM [...] PLATELET 235 Last 3 Lytes Recent Labs 08/29/18 20407/19/18 0907 06/14/18 1022 NA 134* 139 140 [...] 3-4 (baseline creatinine 2) [facility] & [facility] diastolic & systolic CHF. ADDITIONAL HISTORY: The patient was treated at OSH with a nicardipine gtt & lasix gtt. She initially required BiPAP for acute hypoxic respiratory failure but had been off BiPAP for ~ 36 hours by the time she was transferred. Due to ongoing need for nicardipine gtt, she was transferred to [facility] [place] for consideration of renal artery interventions. Plan:?? [...] - Started on IV bolus lasix at [facility] [place] - EKG at OSH showed STD V5-V6 [...] Code Family N/A PCP Sanjuanita Lee MD [phone] Attestation IPI Certification I certify that I am a D-H credentialed attending provider with admitting privileges and that the patient meets or has met medical necessity to require an inpatient IPI level of care meeting a minimum of two midnights or is on the [facility] inpatient only procedure list (status C) due to: Acute CHF requiringIV lasix Team (17/11 Coverage) 2500 Thom Velasquez - 08/30/2018 7:45 AM EDT Vascular Surgery [...] Diagnosis Date ??? AAA (abdominal aortic aneurysm) [id number] angiogram; 3.2 cm infrarenal ??? Constipation ??? [...] (WRVU 6.99) performedby Greyson Chen MD at [facility] MAIN OR ??? PRO UPPER GI ENDOSCOPY, DIAGNOSTIC 01/20/2014 EGD, UPPER GI ENDOSCOPY performed by Corby Cano MD at [facility] ENDOSCOPY ??? PRO UPPER GI ENDOSCOPY, DIAGNOSTIC N/A 07/28/2017 EGD, UPPER GI ENDOSCOPY performed by Snow Liao MD at [facility] ENDOSCOPY ALL: Allergies Allergen Reactions ??? Lisinopril [...] file Gets together: Not on file Attends adventism service: Not on file Active member of [...] [employer]fo of 50 years. 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 Hoping to retire 11/2018 and travel throughout [facility] and [place] with Rodolfo. No history [...] Extrem: WWP, no KAREN LABS: Recent Labs 09/07/18203409/07/18 0030 09/06/18 0600 WBC 24.2* 11.7* 10.6* HGB 12.7 11.9 13.2 HCT 36.6 34.4* 38.1 PLATELET 223 223 228 No results for input(s): PT, PTT, INR in the last 168 hours. Recent Labs 09/07/18203409/07/180 09/06/18 1710 09/06/18 0855 09/03/18 0655 09/03/18 0035 NA 137 136 -- 136 < > [...] in this interval not displayed. Recent Labs 09/07/18203409/07/180 09/06/18 0855 09/06/18 0600 09/05/18 0150 09/03/18 [...] hours. Recent Labs 09/07/18 1549 PHART 7.45 [id number] 39 PO2ART 86 [id number] 60 BEART 2.4 Lactate: 1.1 ASSESSMENT/PLAN: Pretty [...] acetaminophen, ketamine drip ordered due to persistent 02/03 abdominal pain - sedation: none CV: - [...] Pretty Harmon Service: Critical Care Medicine - Blue Team Responsible Attending: Ren Hoffmann MD, MD PCP: Sanjuanita Lee MD PCP phone #: [phone] ID/Chief Complaint: 67 yo F with a [...] urgency), and CKD who initially presented [facility] with hypertensive urgency and acute on chronic diastolic HF. She was treated with a nicardipine gtt and lasix gtt, and she required BiPAP initially. Due to her persistent need for the nicardipine gtt, she was transferred to [facility] for consideration of renal artery interventions. Pt [...] PHOS 4.4 6.2* -- 3.5 Recent Labs 08/29/18 2043 PT 12.2 No results for input(s): LDH, [...] Emergency Medicine, PGY-2 Critical Care Blue 2, #[id number] Liliana Echeverria MD - 08/29/2018 4:44 PM EDT Inpatient Hospital Medicine - Admission Note Problem List: Active Hospital Problems Diagnosis ??? Hypertensive urgency Resolved Hospital Problems No resolved problems to display. Active Non-Hospital Problems Diagnosis ??? Renal artery stenosis ??? Abdominal aortic aneurysm (AAA) without rupture ??? Acute hepatitis ??? Viral hepatitis B acute ID: 67 y.o. 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 Feels fine in between episodes. [...] Diagnosis Date ??? AAA (abdominal aortic aneurysm) [id number] angiogram; 3.2 cm infrarenal ??? Constipation ??? Dyslipidemia ??? Hypertension ??? Insomnia ??? Peripheral vascular disease ??? Renal artery stenosis R; per 2009 angiogram Past Surgical History: Procedure Laterality Date ??? HYSTERECTOMY ??? PRO UPPER GI ENDOSCOPY, DIAGNOSTIC 01/20/2014 EGD, UPPER GI ENDOSCOPY performed by Corby Cano MD at [facility] ENDOSCOPY ??? 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 Hand Hygiene: The certified marine mechanic did perform hand hygiene prior to arterial [...] affect Intake/Output Summary (Last 24 hours) at 09/13/20182209 Last data filed at 09/13/2018 194 Gross per 24 hour Intake 818 ml [...] Independent/standby, eyes on Surveillance [continuous indirect monitoring]: Jesúso, safety rounding Patient-specific fall prevention interventions for [...] Mutuality Outcome: Ongoing (Interventions Implemented as Appropriate) 09/13/18133 Individualization Patient Specific Interventions BP 120-160, SPO2 [...] Assessment Outcome: Ongoing (Interventions Implemented as Appropriate) 09/13/18133 Discharge Needs Assessment Discharge Disposition still a [...] unsuccessful. 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 Patient voiding adequate amounts, LBM 09/07. Clear liquid diet which patient is tolerating [...] Pretty Goal: Fall Prevention-Safe Patient Handling 09/11/18 0800 09/11/18 1400 09/11/18 1430 Lamb Fall Risk History [...] -- -- front-wheel walker Goal: Infection Control 09/10/18 2000 09/11/18 1400 Coping Strategies Supportive Measures active listening [...] provided -- Intervention: Prevent/Manage Excess Moisture 09/09/18 7970 09/11/18 0800 09/11/18 1430 Hygiene Care Perineal [...] Outcome: Ongoing (Interventions Implemented as Appropriate) 09/10/18 0809/10/18 1938 Coping/Psychosocial Plan Of Care Reviewed With [...] Date ??? AAA (abdominal aortic aneurysm) ? [id number] angiogram; 3.2 cm infrarenal ??? Constipation ? [...] 6.99) performed by Greyson Chen MD at [facility] MAIN OR ??? PRO UPPER GI ENDOSCOPY, DIAGNOSTIC ?? 01/20/2014 ?? EGD, UPPER GI ENDOSCOPY performed by Corby Cano MD at [facility] ENDOSCOPY ??? PRO UPPER GI ENDOSCOPY, DIAGNOSTIC N/A 07/28/2017 ?? EGD, UPPER GI ENDOSCOPY performed by Snow Liao MD at [facility] ENDOSCOPY ? Social History: Home set-up: Pt lives with her who has been retired. She has 2 adult children, [place] and [place]. Lives in a 2 Story home. Bathroom on each level. Bedroom is up a flight of stairs, with a railing. 2 steps into the house, with unknown railing. 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 Baseline Mobility: Fully independent and self sufficient. [...] plan as stated. Time IN / OUT: 2279-9145 Total Evaluation Minutes, Physical Therapy: 27(TEF2) DONALD LOCKETT, PT Pager: [phone] Physical Therapy Inpatient Rehabilitation Department Plan of [...] with no effect. PRNs given as ordered. MD made aware of uncontrolled BPs with no [...] Date ??? AAA (abdominal aortic aneurysm) ? [id number] angiogram; 3.2 cm infrarenal ??? Constipation ? [...] 6.99) performed by Greyson Chen MD at [facility] MAIN OR ??? PRO UPPER GI ENDOSCOPY, DIAGNOSTIC ?? 01/20/2014 ?? EGD, UPPER GI ENDOSCOPY performed by Corby Cano MD at [facility] ENDOSCOPY ??? PRO UPPER GI ENDOSCOPY, DIAGNOSTIC N/A 07/28/2017 ?? EGD, UPPER GI ENDOSCOPY performed by Snow Liao MD at [facility] ENDOSCOPY ? Social History: Home set-up: Pt lives with her who has been retired. She has 2 adult children, [place] and [place]. Lives in a 2 Story home. Bathroom on each level. Bedroom is up a flight of stairs, with a railing. 2 steps into the house, with unknown railing. 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 Baseline Mobility: Fully independent and self sufficient. [...] visit. [facility] Education: Reminded pt to use [...] sitting up in the recliner. Assessment: Pretty Babar Harmon was seen today for physical therapy treatment session for continuation of POC. Tolerated OOB and ambulation form ICU South to [facility]. Needed increased FIO2 and standing rests, [...] plan as stated. Time IN / OUT: 5562-6514 Total Evaluation Minutes, Physical Therapy: 20(TEF) DONALD LOCKETT, PT Pager: [phone] Physical Therapy Inpatient Rehabilitation Department Plan of [...] Good urine output most of shift; from 0073-5894 pt with only 85cc of urine output, [...] and ADLs]: SBA Surveillance [continuous indirect monitoring]: [facility], hourly rounding Patient-specific fall prevention interventions [...] room provided -- Plan of Care - Dnoald Lockett, PT - 09/08/2018 2:08 PM EDT [...] Diagnosis Date ??? AAA (abdominal aortic aneurysm) [id number] angiogram; 3.2 cm infrarenal ??? Constipation ??? Dyslipidemia ??? Hypertension ??? Insomnia ??? Peripheral vascular disease ??? Renal artery stenosis R; per 2009 angiogram Past Surgical History: Procedure Laterality Date ??? HYSTERECTOMY ? ? PRO CATHETER 1ST ORDER W/WO ART PUNCT/FLUORO/S&I BILATERAL Bilateral 09/01/[address] (FIRST-ORDER), MAIN RENAL ART & ANY ACC, W/S&I; ANDREY (WRVU 6.99) performedby Greyson Chen MD at [facility] MAIN OR ??? PRO UPPER GI ENDOSCOPY, DIAGNOSTIC 01/20/2014 EGD, UPPER GI ENDOSCOPY performed by Corby Cano MD at [facility] ENDOSCOPY ??? PRO UPPER GI ENDOSCOPY, DIAGNOSTIC N/A 07/28/2017 EGD, UPPER GI ENDOSCOPY performed by Snow Liao MD at [facility] ENDOSCOPY Social History: Home set-up: Pt lives with her who has been retired. She has 2 adult children, [place] and [place]. Lives in a 2 Story home. Bathroom on each level. Bedroom is up a flight of stairs, with a railing. 2 steps into the house, with unknown railing. 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 Baseline Mobility: Fully independent and self sufficient. [...] mobility recommendations discussed with nursing. Assessment: Pretty Eckert Harmon was seen today for physical therapy [...] Mod and BETY) DONALD LOCKETT, PT Pager: [phone] Physical Therapy Inpatient Rehabilitation Department Plan of Care - Miguel Angellianeradha Joel D, OT - 09/08/2018 12:08 PM EDT Occupational [...] fully independent, drives, works FT as an police officer. Precautions/Special Considerations: fall risk, NGT [...] Recommendations. Total Evaluation Minutes, Occupational Therapy: 34(eval) 2016 OT Evaluation Code Rationale: ?? Diagnosis [...] and measurable assessment of functional outcome. Pager: [phone] JOEL LEHMAN OT 09/08/2018 Occupational Therapy Rehabilitation Department Plan of Care - Nina Stallworth RN - 09/08/2018 6:20 AM EDT Problem: Patient Care Overview Goal: Plan of Care Review Outcome: Ongoing (Interventions Implemented as Appropriate) 09/07/18152209/07/182033 Coping/Psychosocial Plan Of Care Reviewed With -- [...] Handling Outcome: Ongoing (Interventions Implemented as Appropriate) 09/07/18139909/07/18203309/08/18 06 Lamb Fall Risk History of Falling -- [...] Outcome: Ongoing (Interventions Implemented as Appropriate) 09/07/18199909/07/18203309/08/18 06 Coping Strategies Supportive Measures -- positive reinforcement provided;active listening utilized -- Safety Interventions Isolation Precautions -- -- standard precautions maintained Infection Prevention single patient room provided -- -- Goal: Discharge Needs Assessment Outcome: Ongoing (Interventions Implemented as Appropriate) 08/29/18 1853 09/06/18 0638 Current Health Anticipated [...] required during toileting and ADLs]: RN and INPATIENT PHARMACIST Surveillance [continuous indirect monitoring]: Telemetry, alarms, frequent [...] (CPG) Outcome: Ongoing (Interventions Implemented as Appropriate) 09/08/18 0615 Skin Integrity Impairment, Risk/Actual Skin Integrity Impairment, Risk/Actual: Related Risk Factors fluid/nutrition status;immobility Goal: Skin Integrity/Wound Healing Patient will demonstrate the desired outcomes by discharge/transition of care. Outcome: Ongoing (Interventions Implemented as Appropriate) 09/08/18 0615 Skin Integrity Impairment, Risk/Actual (Adult) Skin Integrity/Wound Healing making progress toward outcome Op Note - Leah Cline MD - 09/07/2018 9:06 PM EDT [facility] Operative Note ?? Patient Name: Pretty Harmon : [id number] MR#: [id number] ?? Case Date: 09/07/2018 ?? Surgeon: Surgeon(s) [...] on iliac, end to end on renal, cahto right renal artery origin ligated Completion duplex [...] Operative Note Patient Name: Pretty Harmon : [id number] MR#: [id number] Case Date: 09/07/2018 Surgeon: Surgeon(s) and Role: [...] on iliac, end to end on renal, cahto right renal artery origin ligated Completion duplex [...] Outcome: Ongoing (Interventions Implemented as Appropriate) 09/07/18 0800 09/07/18 1523 Coping/Psychosocial Plan Of Care Reviewed With [...] Outcome: Ongoing (Interventions Implemented as Appropriate) 09/07/18 0800 09/07/18 1400 Lamb Fall Risk History of Falling [...] expected -- Goal: Fall Prevention-Safe Patient Handling 09/06/18199909/07/18399 Lamb Fall Risk History of Falling 0 [...] Device Utilized -- oxygen Goal: Infection Control 09/06/18199909/07/18399 Safety Interventions Isolation Precautions -- standard precautions [...] (see comments) (NPO for planned surgery since 0000) Intervention: Gradually Correct Positive Fluid Balance 09/06/18199909/07/18399 [...] also contacted MD___PRIMARY CARE TEAM CONTACTED BY LAWRNECE ROLON FOR CENTRAL LINE NEED. regarding this [...] Patient Care Overview Goal: Discharge Needs Assessment 09/06/18637 Discharge Needs Assessment Discharge Disposition still a patient Problem: Cardiac: Heart Failure (Adult) Intervention: Promote Functional Ability 09/05/18199909/06/18599 Activity Activity Type -- activity adjusted [...] agents applied -- Intervention: Prevent/Manage DVT/VTE Risk 09/06/18 0638 Support Surgical/Anesthesia Recovery VTE Prevention/Management anticoagulant therapy;AROM (active range of motion) performed Goal: Signs and Symptoms of Listed Potential Problems Will be Absent, Minimized or Managed (Cardiac:Heart Failure) Signs and symptoms of listed potential problems will be absent, minimized or managed by discharge/transition of care (reference Cardiac: Heart Failure (Adult) CPG). 09/06/18 0638 Cardiac: Heart Failure Problems Assessed (Heart Failure) [...] CPG). Outcome: Ongoing (Interventions Implemented as Appropriate) 09/04/18 0521 09/05/18 0724 Cardiac: Heart Failure Problems Assessed (Heart Failure) [...] CPG). Outcome: Ongoing (Interventions Implemented as Appropriate) 09/04/18 0521 Cardiac: Heart Failure Problems Assessed (Heart Failure) [...] Outcome: Ongoing (Interventions Implemented as Appropriate) 09/03/18 9492 Coping/Psychosocial Plan Of Care Reviewed With patient;spouse;family [...] call with any questions. Beba Aaron MD #[id number]. Associated attestation - Tyron Kemp MD - [...] uncontrolled hypertensive urgency, she was transferred to [facility] for consideration of intervention of bilateral renal [...] weaned off nicardipine and was transferred to [facility] for possible vascular surgery intervention. On 09/01, [...] Diagnosis Date ??? AAA (abdominal aortic aneurysm) [id number] angiogram; 3.2 cm infrarenal ??? Constipation ??? Dyslipidemia ??? Hypertension ??? Insomnia ??? Peripheral vascular disease ??? Renal artery stenosis R; per 2010 angiogram Past Surgical History: Procedure Laterality Date ??? HYSTERECTOMY ??? PRO UPPER GI ENDOSCOPY, DIAGNOSTIC 01/20/2014 EGD, UPPER GI ENDOSCOPY performed by Corby Cano MD at [facility] ENDOSCOPY ??? PRO UPPER GI ENDOSCOPY, DIAGNOSTIC N/A 07/28/2017 EGD, UPPER GI ENDOSCOPY performed by Snow Liao MD at [facility] ENDOSCOPY Family History Problem Relation Age of [...] uncontrolled hypertensive urgency, she was transferred to [facility] for consideration of intervention of bilateral renal [...] careful shared decision as at present time, penitentiary dialysis is not in line with patient's [...] Jessa Real MD?PGY-1 Internal??Medicine Nephrology Consult Pager #[phone] Associated attestation - Candida Adair MD - [...] primary team. Candida Adair MD Nephrology Pager: [phone] Med Student Progress Note - Cate Sheehan - 09/02/2018 1:45 PM EDT [facility] Medicine Sub-I Daily Progress Note Admit [...] Last Ca, Mg, Phos Recent Labs 09/02/18 0329 CALCIUM 8.5 PHOS 6.2* Last 3 ProBNP, Trop, CK Recent Labs 08/29/183 CK 61 TROPONINT <0.01 FSBG Trend No [...] 1939 VBTEXTRPT Department: Vascular Surgery Lab Patient: [id number] (PRETTY HARMON) CPT: 63063 ICD10: I70.1 Referring Physician: LILIANA ECHEVERRIA Indications: [...] of kidney function Goals of Care: Team Pager( Coverage 17/11): #[phone] PCP: Sanjuanita Lee MD [phone] Cate Sheehan MS3 Pager [phone] 09/02/2018 Plan of Care - Lorraine Rivero RN - 09/02/2018 4:42 AM EDT Problem: Patient Care Overview Goal: Plan of Care Review Outcome: Ongoing (Interventions Implemented as Appropriate) 09/02/18 0438 Coping/Psychosocial Plan Of Care Reviewed With patient Plan of Care Review Progress improving OUTCOME EVALUATION NOTE: OUTCOME SUMMARY 6402-5142: A/Ox4. Afebrile. HR 60s-70s. SBP 130s-140s on [...] -- Assistive Device Utilized oxygen -- -- 09/01/18199909/01/18 2200 09/02/18 0400 Lamb Fall Risk History of Falling [...] Control Outcome: Ongoing (Interventions Implemented as Appropriate) 09/01/18199909/02/18 0400 Safety Interventions Isolation Precautions -- standard precautions maintained Infection Prevention -- rest/sleep promoted Coping Strategies Supportive Measures active listening utilized -- Op Note - Leah Cline MD - 09/01/2018 5:21 PM EDT [facility] Operative Note ?? Patient Name: Pretty Harmon : [id number] MR#: [id number] ?? Case Date: 09/01/2018 ?? Surgeon: Surgeon(s) [...] (Bilateral) ? Anesthesia: General ?? Findings: Left CLOTH PRESSER access Able to select left renal with [...] catch on vessel origin 6F deployed right CLOTH PRESSER, no hematoma, +right DP pulse at case [...] Operative Note Patient Name: Pretty Harmon : [id number] MR#: [id number] Case Date: 09/01/2018 Surgeon: Surgeon(s) and Role: [...] (WRVU 6.99) (Bilateral) Anesthesia: General Findings: Left CLOTH PRESSER access Able to select left renal with [...] catch on vessel origin 6F deployed right CLOTH PRESSER, no hematoma, +right DP pulse at case [...] Ongoing (Interventions Implemented as Appropriate) 08/30/18 1805 08/30/181999 Coping/Psychosocial Plan Of Care Reviewed With -- [...] Handling Outcome: Ongoing (Interventions Implemented as Appropriate) 08/29/18 1838 08/30/18 1800 08/30/181999 Zainab Fall Risk History of Falling -- -- [...] Assistive Device Utilized none -- -- 08/31/18 Zainab Fall Risk History of Falling -- Secondary [...] Conf Outcome: Ongoing (Interventions Implemented as Appropriate) 08/29/181852 Interdisciplinary Rounds/Family Conf Participants family;nursing;patient;physician Plan of [...] vascular, and CKD Cr ~2 presented to [facility] w hypertensive urgency and acute on chronic diastolic CHF. Nitroglycerin drip was ineffective and nicardipine was started. nitially required BIPAP. Off since 08/28 am.Was placed on nitro drip originally and [...] May, June/July and this is [facility]th hospital[facility]. Feels fine in between episodes. [...] her and reports hadneg stress test on Liliana harmon MD Date of Service: 08/29/2018 ??4:44 PM Past Medical History: Diagnosis Date ??? AAA (abdominal aortic aneurysm) [id number] angiogram; 3.2 cm infrarenal ??? Constipation ??? Dyslipidemia ??? Hypertension ??? Insomnia ??? Peripheral vascular disease ??? Renal artery stenosis R; per 2009 angiogram Hospitalizations Within the Past 30 Days: se H&P Anticipated Length Of Stay (If known): Expected Length of Hospitalization: tbd Current Decision-Making Capacity: a,ox3 Advance Care Planning: to Rodolfo Harmon [phone] who is surrogate MPOA Current Coping/Education/Information Needs: [...] Health/Prescription Coverage: Primary Insurance: MEDICARE Secondary Insurance: iFulfillment [place] Prescription Coverage: yes Preferred Pharmacy: [facility] Primary Care Provider: Sanjuanita Lee MD [phone] Patient/Caregiver Goals of Treatment: Home with MD [...] of care planning. Shannen Isaacs, RN Pager: [phone] Plan of Care - Corwin Hendrickson RN [...] Diagnosis Date ??? AAA (abdominal aortic aneurysm) [id number] angiogram; 3.2 cm infrarenal ??? Constipation ??? Dyslipidemia ??? Hypertension ??? Insomnia ??? Peripheral vascular disease ??? Renal artery stenosis R; per 2009 angiogram PSH: Past Surgical History: Procedure Laterality Date ??? HYSTERECTOMY ??? PRO UPPER GI ENDOSCOPY, DIAGNOSTIC 01/20/2014 EGD, UPPER GI ENDOSCOPY performed by Corby Cano MD at [facility] ENDOSCOPY ??? PRO UPPER GI ENDOSCOPY, DIAGNOSTIC N/A 07/28/2017 EGD, UPPER GI ENDOSCOPY performed by Snow Liao MD at [facility] ENDOSCOPY MEDICATIONS: No current facility-administered medications on [...] file Gets together: Not on file Attends adventism service: Not on file Active member of [...] Ongoing (Interventions Implemented as Appropriate) 08/29/18 1853 Coping/Psychosocial Plan Of Care Reviewed With patient;spouse [...] Conf Outcome: Ongoing (Interventions Implemented as Appropriate) 08/29/181852 Interdisciplinary Rounds/Family Conf Participants family;nursing;patient;physician documented in [...] Res ults for this SEND TO LAB ([facility]) AM EDT proce dure are in the [...] Res ults for this SEND TO LAB ([facility]) PM EDT proce dure are in the [...] section. TYPE AND SCREEN STAT 09/07/2018 7:46 ([facility]/CGP/NINI) AM EDT BMP W/FASTING GLUCOSE Routine 09/07/2018 [...] in the results section. SELECT CATH PLACE Routine 09/01/2018 11:11 (FIRST-ORDER), [...] (ABNORMAL) Differential, Automated (09/14/2018 5:16 AM EDT) [facility] Method Time Signature Neutrophils % 66.9 % [facility] LABORATORY Neutr Abs (ANC) 7.10 (H) 1.70 - [facility] 6.10 [facility] x10(3)/[facility] LABORATORY Lymphocytes % 11.7 % [facility] LABOR[facility]ORY Lymphocytes Abs 1.2 0.9 - 3.[address] [facility] x10(3)/[facility] LABORATORY Monocytes % 10.5 % [facility] LAB[facility]ORY Monocyte Abs 1.1 (H) 0.3 - 0.[address] [facility] x10(3)/[facility] LABORATORY Eosinophils % 8.7 % [facility] LABOR[facility]ORY Eosinophils Abs 0.9 (H) 0.0 - 0.[address] [facility] x10(3)/[facility] LABORATORY Basophils % 0.9 % [facility] LABOR[facility]ORY Basophils Abs 0.1 0.0 - 0.[address] [facility] x10(3)/[facility] LABORATORY Immature Gran % 1.30 % [facility] LAB[facility]ORY Comment: Immature granulocytes(IG's)percentage an d absolute count will include metamyelocytes, myelocytes, and promyelo cytes. Blood smears from CBCs yielding IG's will be scanned manually for concor dance. If this scan disagrees with the automated IG or if promyelocytes are not ed, a manual differential will be performed. Blanca Gran Abs 0.14 (H) 0.00 - 0.04 x10(3)/[facility] LABORATORY Specimen Anatomical Collection Method Collection Time Receive d Time (Source) Location / / Volume Laterality Blood specimen 09/14/2018 5:16 AM 019 5:24 (specimen) EDT AM EDT Resulting Agency Comment Spec In Lab Thom Benjamin Velasquez MD HEMATOLOGY ORDERABLES Performing Organization Address City/State/[place] [address] (ABNORMAL) Hemogram (09/14/2018 5:16 AM EDT) Analysis Performed At Patho logist Time Signature WBC 10.6 (H) 4.0 - 9.5 [facility] LABORATORY RBC 3.98 (L) 4.00 - [facility] 5.21 [facility] x10(6)/[facility] LABORATORY Hemoglobin 11.9 11.7 - [facility] 15.5 gm/dL [facility] LABORATORY Hematocrit 35.6 (L) 35.7 - [facility] 45.8 % [facility] LABORATORY MCV 89.4 82.6 - [facility] 94.4 [facility] LABORATORY MCH 29.9 27.1 - [facility] 32.0 pg [facility] LABORATORY MCHC 33.4 31.7 - [facility] 35.0 gm/dL [facility] LABORATORY Platelets 266 145 - [address] [facility] x10(3)/[facility] LABORATORY RDWSD 44.4 37.0 - [facility] 46.0 [facility] LABORATORY RDWCV 13.6 11.5 - [facility] 14.1 % [facility] LABORATORY MPV 11.0 7.6 - 12.9 [facility] nRBC % Auto 0.0 % [facility] LABORATORY nRBC Abs Auto 0.000 0.000 - [facility] 0.000 [facility] x10(3)/[facility] LABORATORY Specimen Anatomical Collection Method Collection Time Receive d Time (Source) Location / / Volume Laterality Blood specimen 09/14/2018 5:16 AM 019 5:24 (specimen) EDT AM EDT Resulting Agency Comment Spec In Lab Thom A Ron HEMATOLOGY ORDERABLES Performing Organization Address City/State/[place] [address] (ABNORMAL) Magnesium (09/14/2018 5:16 AM EDT) P athologist Signature Magnesium 0.63 (L) 0.69 - 1.07 [facility]L [facility] LABORATORY Specimen Anatomical Collection Method Collection Time Receive d Time (Source) Location / / Volume Laterality Blood specimen 09/14/2018 5:16 AM 019 5:23 (specimen) EDT AM EDT Resulting Agency Comment Spec In Lab Unique Moody MD CHEMISTRY ORDERABLES Performing Organization Address City/State/[place] [address] (ABNORMAL) BMP w/fasting Glucose (09/14/2018 5:16 AM EDT) athologist Signature Glucose 109 (H) 65 - [address] [facility] Fasting mg/dL [facility] LABORATORY Comment: ?Fasting* Glucose Interpretive [...] of Diabetes Mellitus, Position Statement from the [place] [employer]. ??Diabete s Care, Volume 33, Supplement 1, Apr 2009 BUN 16 8 - 18 mg/dL [facility] LABORATORY Creatinine 1.64 (H) 0.70 - 1.20 mg/dL [facility] LABORATORY Sodium 137 135 - 145 mmol/L [facility] LABORATORY Potassium 4.1 3.5 - 5.0 mmol/L [facility] LABORATORY Comment: Please note: ??Patients with WBC >100,00 0 may have falsely elevated Potassium levels. ??For accurate Potassium quantif ication in these patients send serum separator tube (gold top) for subsequent determinations. ??Contact the Clinical Chemistry Laboratory if there are any qu estions. Chloride 106 98 - 107 mmol/L [facility] LABOR[facility]ORY CO2 17 (L) 22 - 31 mmol/L [facility] LABORATORY Anion Gap 14 5 - 15 mmol/L [facility] LABORATORY Calcium 8.8 8.5 - 10.5 mg/dL [facility] LABORATORY Estimated GFR 32 (L) >=60 mL/min/1.73 m?? [facility] LAB[facility] Comment: The eGFR was calculated using the CKD-EP I equation. As with all creatinine based estimates of kidney function, eGFR values calculated with the CKD-EPI equation are not accurate in patients wi th acute kidney failure, extremes of body mass or the acutely ill. [email or web address] eGFR 37 (L) >=60 mL/min/1.73 m?? [facility] LABOR[facility]ORY Comment: The eGFR was calculated using the CKD-EP I equation. As with all creatinine based estimates of kidney function, eGFR values calculated with the CKD-EPI equation are not accurate in patients wi th acute kidney failure, extremes of body mass or the acutely ill. [email or web address] Specimen Anatomical Collection Method Collection Time Receive d Time (Source) Location / / Volume Laterality Blood specimen 09/14/2018 5:16 AM 019 5:23 (specimen) EDT AM EDT Resulting Agency Comment Spec In Lab Unique Moody MD CHEMISTRY ORDERABLES Performing Organization Address City/State/[place] [address] (ABNORMAL) Differential, Automated (09/13/2018 5:50 AM EDT) [facility] Method Time Signature Neutrophils % 62.6 % [facility] LABORATORY Neutr Abs (ANC) 5.06 1.70 - [facility] 6.10 [facility] x10(3)/[facility] LABORATORY Lymphocytes % 16.1 % [facility] LABORATORY Lymphocytes Abs 1.3 0.9 - 3.[address] [facility] x10(3)/[facility] LABORATORY Monocytes % 10.9 % [facility] LABORATORY Monocyte Abs 0.9 0.3 - 0.[address] [facility] x10(3)/[facility] LABORATORY Eosinophils % 7.4 % [facility] LABORATORY Eosinophils Abs 0.6 (H) 0.0 - 0.[address] [facility] x10(3)/[facility] LABORATORY Basophils % 1.0 % [facility] LABORATORY Basophils Abs 0.1 0.0 - 0.[address] [facility] x10(3)/[facility] LABORATORY Immature Gran % 2.00 % [facility] LABORATORY Comment: Immature granulocytes(IG's)percentage an d absolute count will include metamyelocytes, myelocytes, and promyelo cytes. Blood smears from CBCs yielding IG's will be scanned manually for concor dance. If this scan disagrees with the automated IG or if promyelocytes are not ed, a manual differential will be performed. Blanca Gran Abs 0.16 (H) 0.00 - 0.04 x10(3)/[facility] LABORATORY Specimen Anatomical Collection Method Collection Time Receive d Time (Source) Location / / Volume Laterality Blood specimen 09/13/2018 5:50 AM 019 6:09 (specimen) EDT AM EDT Resulting Agency Comment Spec In Lab Thom Velasquez MD HEMATOLOGY ORDERABLES Performing Organization Address City/State/[place] [address] (ABNORMAL) Hemogram (09/13/2018 5:50 AM EDT) Analysis Performed At Patho logist Time Signature WBC 8.1 4.0 - 9.[address] [facility] x10(3)/[facility] LABORATORY RBC 3.26 (L) 4.[address] - [facility] 5.21 [facility] x10(6)/[facility] LABORATORY Hemoglobin 10.1 (L) 11.7 - [facility] 15.5 gm/dL [facility] LABORATORY Hematocrit 29.8 (L) 35.7 - [facility] 45.8 % [facility] LABORATORY MCV 91.4 82.6 - [facility] 94.4 [facility] LABORATORY MCH 31.0 27.1 - [facility] 32.0 pg [facility] LABORATORY MCHC 33.9 31.7 - [facility] 35.0 gm/dL [facility] LABORATORY Platelets 237 145 - [address] [facility] x10(3)/[facility] LABORATORY RDWSD 44.6 37.0 - [facility] 46.0 [facility] RDWCV 13.3 11.5 - [place] 14.1 % [facility] LABORATORY MPV 11.3 7.6 - 12.9 [place] [facility] LABORATORY nRBC % Auto 0.0 % [facility] LABORATORY nRBC Abs Auto 0.000 0.000 - [place] 0.000 [facility] x10(3)/[facility] LABORATORY Specimen Anatomical Collection Method Collection Time Receive d Time (Source) Location / / Volume Laterality Blood specimen 09/13/2018 5:50 AM 019 6:09 (specimen) EDT AM EDT Resulting Agency Comment Spec In Lab Thom Velasquez MD HEMATOLOGY ORDERABLES Performing Organization Address City/State/ZIP Code Phon e Number [address] (ABNORMAL) Magnesium (09/13/2018 5:50 AM EDT) P athologist Signature Magnesium 0.65 (L) 0.69 - 1.[address] [facility] mmol/L [facility] LABORATORY Specimen Anatomical Collection Method Collection Time Receive d Time (Source) Location / / Volume Laterality Blood specimen 09/13/2018 5:50 AM 019 6:09 (specimen) EDT AM EDT Resulting Agency Comment Spec In Lab Unique Moody MD CHEMISTRY ORDERABLES Performing Organization Address City/State/[place] [address] (ABNORMAL) BMP w/fasting Glucose (09/13/2018 5:50 AM EDT) P athologist Signature Glucose 160 (H) 65 - [address] [facility] Fasting mg/dL [facility] LABORATORY Comment: ?Fasting* Glucose Interpretive [...] of Diabetes Mellitus, Position Statement from the [place] [employer]. ??Diabete s Care, Volume 33, Supplement 1, Apr 2009 BUN 21 (H) 8 - 18 mg/dL [facility] LABORATORY Creatinine 1.73 (H) 0.70 - 1.20 mg/dL [facility] LABORATORY Sodium 139 135 - 145 mmol/L [facility] LABORATORY Potassium 3.3 (L) 3.5 - 5.0 mmol/L [facility] LABORATORY Comment: Please note: ??Patients with WBC >100,00 0 may have falsely elevated Potassium levels. ??For accurate Potassium quantif ication in these patients send serum separator tube (gold top) for subsequent determinations. ??Contact the Clinical Chemistry Laboratory if there are any qu estions. Chloride 105 98 - 107 mmol/L [facility] LABORATORY CO2 20 (L) 22 - 31 mmol/L [facility] LABORATORY Anion Gap 14 5 - 15 mmol/L [facility] LABORATORY Calcium 8.3 (L) 8.5 - 10.5 mg/dL [facility] LABORATORY Estimated GFR 30 (L) >=60 mL/min/1.73 m?? [facility] LAB[facility]ORY Comment: The eGFR was calculated using the CKD-EP I equation. As with all creatinine based estimates of kidney function, eGFR values calculated with the CKD-EPI equation are not accurate in patients wi th acute kidney failure, extremes of body mass or the acutely ill. [email or web address] eGFR 34 (L) >=60 mL/min/1.73 m?? [facility] LABOR[facility]ORY Comment: The eGFR was calculated using the CKD-EP I equation. As with all creatinine based estimates of kidney function, eGFR values calculated with the CKD-EPI equation are not accurate in patients wi th acute kidney failure, extremes of body mass or the acutely ill. [email or web address] CITYnkf Specimen Anatomical Collection Method Collection Time Receive d Time (Source) Location / / Volume Laterality Blood specimen 09/13/2018 5:50 AM 019 6:09 (specimen) EDT AM EDT Resulting Agency Comment Spec In Lab Unique Moody MD CHEMISTRY ORDERABLES Performing Organization Address City/[facility]/[place] [address] Potassium (09/12/2018 8:00 AM EDT) P athologist Signature Potassium 4.2 3.5 - 5.[address] [facility] mmol/L [facility] LABORATORY Comment: Please note: ??Patients [...] EDT Resulting Agency Comment Spec In Lab Uniuqe Moody MD CHEMISTRY ORDERABLES Performing Organization Address City/[facility]/ZIP Code Phon e Number [address] (ABNORMAL) Differential, Automated (09/12/2018 1:10 AM EDT) Patholo gist Method Time Signature Neutrophils % 65.0 % [facility] LABORATORY Neutr Abs (ANC) 5.74 1.[address] - [facility] 6.10 [facility] x10(3)/[facility] LABORATORY Lymphocytes % 16.5 % [facility] LABORATORY Lymphocytes Abs 1.5 0.9 - 3.[address] [facility] x10(3)/[facility] LABORATORY Monocytes % 10.0 % [facility] LABORATORY Monocyte Abs 0.9 0.3 - 0.[address] [facility] x10(3)/[facility] LABORATORY Eosinophils % 6.2 % [facility] LABORATORY Eosinophils Abs 0.6 (H) 0.0 - 0.[address] [facility] x10(3)/[facility] LABORATORY Basophils % 0.9 % [facility] LABORATORY Basophils Abs 0.1 0.0 - 0.[address] [facility] x10(3)/[facility] LABORATORY Immature Gran % 1.40 % [facility] LABORATORY Comment: Immature granulocytes(IG's)percentage an d absolute count will include metamyelocytes, myelocytes, and promyelo cytes. Blood smears from CBCs yielding IG's will be scanned manually for concor dance. If this scan disagrees with the automated IG or if promyelocytes are not ed, a manual differential will be performed. Blanca Gran Abs 0.12 (H) 0.00 - 0.04 x10(3)/[facility] LABORATORY Specimen Anatomical Collection Method Collection Time Receive d Time (Source) Location / / Volume Laterality Blood specimen 09/12/2018 1:10 AM 019 1:14 (specimen) EDT AM EDT Resulting Agency Comment Spec In Lab Thom A Ronmeka RODRIGSE HEMATOLOGY ORDERABLES Performing Organization Address City/State/[place] [address] (ABNORMAL) Hemogram (09/12/2018 1:10 AM EDT) Analysis Performed At Patho logist Time Signature WBC 8.8 4.0 - 9.[address] [facility] x10(3)/[facility] LABORATORY RBC 3.23 (L) 4.[address] - [facility] 5.21 [facility] x10(6)/[facility] LABORATORY Hemoglobin 9.7 (L) 11.7 - [facility] 15.5 gm/dL [facility] LABORATORY Hematocrit 29.3 (L) 35.7 - [facility] 45.8 % [facility] LABORATORY MCV 90.7 82.6 - [facility] 94.4 [facility] LABORATORY MCH 30.0 27.1 - [facility] 32.0 pg [facility] LABORATORY MCHC 33.1 31.7 - [facility] 35.0 gm/dL [facility] LABORATORY Platelets 228 145 - [address] [facility] x10(3)/[facility] LABORATORY RDWSD 46.8 (H) 37.0 - [facility] 46.0 [facility] LABORATORY RDWCV 13.8 11.5 - [place] 14.1 % [facility] LABORATORY MPV 11.2 7.6 - 12.9 [place] [facility] LABORATORY nRBC % Auto 0.0 % [facility] LABORATORY nRBC Abs Auto 0.000 0.000 - [place] 0.000 [facility] x10(3)/[facility] LABORATORY Specimen Anatomical Collection Method Collection Time Receive d Time (Source) Location / / Volume Laterality Blood specimen 09/12/2018 1:10 AM 019 1:14 (specimen) EDT AM EDT Resulting Agency Comment Spec In Lab Thom Velasquez MD HEMATOLOGY ORDERABLES Performing Organization Address City/[facility]/ZIP Code Phon e Number [address] (ABNORMAL) Magnesium (09/12/2018 1:10 AM EDT) P athologist Signature Magnesium 0.68 (L) 0.69 - 1.[address] [facility] mmol/L [facility] LABORATORY Specimen Anatomical Collection Method Collection Time Receive d Time (Source) Location / / Volume Laterality Blood specimen 09/12/2018 1:10 AM 019 1:14 (specimen) EDT AM EDT Resulting Agency Comment Spec In Lab Unique Moody MD CHEMISTRY ORDERABLES Performing Organization Address City/[facility]/ZIP Code Phon e Number [address] (ABNORMAL) BMP w/fasting Glucose (09/12/2018 1:10 AM EDT) P athologist Signature Glucose 145 (H) 65 - [address] [facility] Fasting mg/dL [facility] LABORATORY Comment: ?Fasting* Glucose Interpretive [...] of Diabetes Mellitus, Position Statement from the [place] [employer]. ??Diabete s Care, Volume 33, Supplement 1, Apr 2009 BUN 25 (H) 8 - 18 mg/dL [facility] LABORATORY Creatinine 1.59 (H) 0.70 - 1.20 mg/dL [facility] LABORATORY Sodium 139 135 - 145 mmol/L [facility] LABORATORY Potassium 3.6 3.5 - 5.0 mmol/L [facility] LABORATORY Comment: Please note: ??Patients with WBC >100,00 0 may have falsely elevated Potassium levels. ??For accurate Potassium quantif ication in these patients send serum separator tube (gold top) for subsequent determinations. ??Contact the Clinical Chemistry Laboratory if there are any qu estions. Chloride 105 98 - 107 mmol/L [facility] LABORATORY CO2 22 22 - 31 mmol/L [facility] LABORATORY Anion Gap 12 5 - 15 mmol/L [facility] LABORATORY Calcium 8.4 (L) 8.5 - 10.5 mg/dL [facility] LABORATORY Estimated GFR 33 (L) >=60 mL/min/1.73 m?? [facility] LABOR[facility]ORY Comment: The eGFR was calculated using the CKD-EP I equation. As with all creatinine based estimates of kidney function, eGFR values calculated with the CKD-EPI equation are not accurate in patients wi th acute kidney failure, extremes of body mass or the acutely ill. [email or web address] CITYnkf eGFR 38 (L) >=60 mL/min/1.73 m?? [facility] LABORATORY Comment: The eGFR was calculated using the CKD-EP I equation. As with all creatinine based estimates of kidney function, eGFR values calculated with the CKD-EPI equation are not accurate in patients wi th acute kidney failure, extremes of body mass or the acutely ill. [email or web address] Specimen Anatomical Collection Method Collection Time Receive d Time (Source) Location / / Volume Laterality Blood specimen 09/12/2018 1:10 AM 019 1:14 (specimen) EDT AM EDT Resulting Agency Comment Spec In Lab Unique Moody MD CHEMISTRY ORDERABLES Performing Organization Address City/[facility]/ZIP Code Phon e Number [address] Potassium (09/11/2018 6:20 PM EDT) P athologist Signature Potassium 3.5 3.5 - 5.[address] [facility] mmol/L [facility] LABORATORY Comment: Please note: ??Patients [...] Moody MD CHEMISTRY ORDERABLES Performing Organization Address City/[facility]/ZIP Code Phon e Number [address] (ABNORMAL) Differential, Automated (09/11/2018 7:30 AM EDT) Patholo gist Method Time Signature Neutrophils % 69.1 % [facility] LABORATORY Neutr Abs (ANC) 8.12 (H) 1.70 - [facility] 6.10 [facility] x10(3)/[place] [facility] LABORATORY Lymphocytes % 13.9 % [facility] LABORATORY Lymphocytes Abs 1.6 0.9 - 3.[address] [facility] x10(3)/[facility] LABORATORY Monocytes % 10.8 % [facility] LABORATORY Monocyte Abs 1.3 (H) 0.3 - 0.[address] [facility] x10(3)/[facility] LABORATORY Eosinophils % 3.3 % [facility] LABORATORY Eosinophils Abs 0.4 0.0 - 0.[address] [facility] x10(3)/[facility] LABORATORY Basophils % 0.9 % [facility] LABORATORY Basophils Abs 0.1 0.0 - 0.[address] [facility] x10(3)/[facility] LABORATORY Immature Gran % 2.00 % [facility] LABORATORY Comment: Immature granulocytes(IG's)percentage an d absolute count will include metamyelocytes, myelocytes, and promyelo cytes. Blood smears from CBCs yielding IG's will be scanned manually for concor dance. If this scan disagrees with the automated IG or if promyelocytes are not ed, a manual differential will be performed. Blanca Gran Abs 0.23 (H) 0.00 - 0.04 x10(3)/[facility] LABORATORY Specimen Anatomical Collection Method Collection Time Receive d Time (Source) Location / / Volume Laterality Blood specimen 09/11/2018 7:30 AM 019 7:43 (specimen) EDT AM EDT Resulting Agency Comment Spec In Lab Thom A Ron HEMATOLOGY ORDERABLES Performing Organization Address City/State/ZIP Code Phon e Number [place] [id number] HOSPITAL LABORATORY Drive (ABNORMAL) Hemogram (09/11/2018 7:30 AM EDT) Analysis Performed At Patho logist Time Signature WBC 11.8 (H) 4.0 - 9.[address] [facility] x10(3)/[facility] LABORATORY RBC 3.38 (L) 4.00 - [facility] x10(6)/[facility] LABORATORY Hemoglobin 10.3 (L) 11.7 - [facility] 15.5 gm/dL [facility] LABORATORY Hematocrit 31.3 (L) 35.7 - [facility] 45.8 % [facility] LABORATORY MCV 92.6 82.6 - [facility] 94.4 [facility] LABORATORY MCH 30.5 27.1 - [facility] 32.0 pg [facility] LABORATORY MCHC 32.9 31.7 - [facility] 35.0 gm/dL [facility] LABORATORY Platelets 231 145 - [address] [facility] x10(3)/[facility] LABORATORY RDWSD 47.8 (H) 37.0 - [facility] 46.0 [facility] LABORATORY RDWCV 14.3 (H) 11.5 - [place] 14.1 % [facility] LABORATORY MPV 11.0 7.6 - 12.9 [place] [facility] LABORATORY nRBC % Auto 0.0 % [facility] LABORATORY nRBC Abs Auto 0.000 0.000 - [place] 0.000 [facility] x10(3)/[facility] LABORATORY Specimen Anatomical Collection Method Collection Time Receive d Time (Source) Location / / Volume Laterality Blood specimen 09/11/2018 7:30 AM 019 7:43 (specimen) EDT AM EDT Resulting Agency Comment Spec In Lab Thom Velasquez MD HEMATOLOGY ORDERABLES Performing Organization Address City/State/ZIP Code Phon e Number [address] Magnesium (09/11/2018 7:30 AM EDT) P athologist Signature Magnesium 0.83 0.69 - 1.[address] [facility] mmol/L [facility] LABORATORY Specimen Anatomical Collection Method Collection Time Receive d Time (Source) Location / / Volume Laterality Blood specimen 09/11/2018 7:30 AM 019 7:43 (specimen) EDT AM EDT Resulting Agency Comment Spec In Lab Unique Moody MD CHEMISTRY ORDERABLES Performing Organization Address City/State/[place] [address] (ABNORMAL) BMP w/fasting Glucose (09/11/2018 7:30 AM EDT) P athologist Signature Glucose 127 (H) 65 - [address] [facility] Fasting mg/dL [facility] LABORATORY Comment: ?Fasting* Glucose Interpretive [...] of Diabetes Mellitus, Position Statement from the [place] [employer]. ??Diabete s Care, Volume 33, Supplement 1, Apr 2009 BUN 32 (H) 8 - 18 mg/dL [facility] LABORATORY Creatinine 1.61 (H) 0.70 - 1.20 mg/dL [facility] LABORATORY Sodium 141 135 - 145 mmol/L [facility] LABORATORY Potassium 3.1 (L) 3.5 - 5.0 mmol/L [facility] LABORATORY Comment: Please note: ??Patients with WBC >100,00 0 may have falsely elevated Potassium levels. ??For accurate Potassium quantif ication in these patients send serum separator tube (gold top) for subsequent determinations. ??Contact the Clinical Chemistry Laboratory if there are any qu estions. Chloride 106 98 - 107 mmol/L [facility] LABORATORY CO2 22 22 - 31 mmol/L [facility] LABORATORY Anion Gap 13 5 - 15 mmol/L [facility] LABORATORY Calcium 8.4 (L) 8.5 - 10.5 mg/dL [facility] LABORATORY Estimated GFR 32 (L) >=60 mL/min/1.73 m?? [facility] LABORATORY Comment: The eGFR was calculated using the CKD-EP I equation. As with all creatinine based estimates of kidney function, eGFR values calculated with the CKD-EPI equation are not accurate in patients wi th acute kidney failure, extremes of body mass or the acutely ill. [email or web address] CITYnkf eGFR 37 (L) >=60 mL/min/1.73 m?? [facility] LABORATORY Comment: The eGFR was calculated using the CKD-EP I equation. As with all creatinine based estimates of kidney function, eGFR values calculated with the CKD-EPI equation are not accurate in patients wi th acute kidney failure, extremes of body mass or the acutely ill. [email or web address] [place] CITYnkf Specimen Anatomical Collection Method Collection Time Receive d Time (Source) Location / / Volume Laterality Blood specimen 09/11/2018 7:30 AM 019 7:43 (specimen) EDT AM EDT Resulting Agency Comment Spec In Lab Unique Moody MD CHEMISTRY ORDERABLES Performing Organization Address City/[facility]/[place] [address] Unilat Bypass Graft Assess (09/10/2018 8:30 AM EDT) Component Value Ref Test Analysis Performed At [facility] gist Range Method Time Signature VB Text Department: Vascular Surgery Lab [email or web address] Report Patient: [id number] (PRETTY HARMON) CPT: 71017 ICD10: I70.1 Referring Physician: UNIQUE MOODY ?? 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 pat ency ICD10 Diagnosis Code: I70.1 Findings: Interpretation: RIGHT: [...] Moody MD VASCULAR ORDERABLES Performing Organization Address City/[facility]/ZIP Code Phon e Number [email or web address] Urinalysis Microscopic Exam (09/10/2018 7:50 AM EDT) P athologist Signature RBC UA <1 0 - 4 /HPF [facility] LABORATORY WBC UA <1 0 - 5 /HPF [facility] LABORATORY Specimen (Source) Anatomical Collection Method Collection Time Re ceived Time Location / / Volume Laterality Urine specimen 09/10/2018 7:50 09/10/2018 9:15 obtained by clean AM EDT AM EDT catch procedure (specimen) Resulting Agency Comment Spec In Lab Leah Cline MD URINE ORDERABLES Performing Organization Address City/[facility]/ZIP Code Phon e Number [address] Urine Hold (09/10/2018 7:50 AM EDT) P athologist Signature Urine Hold Sample in [facility]. [facility] LABORATORY Specimen Anatomical Collection Method Collection Time Receive d Time (Source) Location / / Volume Laterality Urine specimen Urine / Unknown 09/10/2018 7:50 AM 0510/2018 9:15 (specimen) EDT AM EDT Leah Cline MD URINE ORDERABLES Performing Organization Address City/State/ZIP Code Phon e Number [address] (ABNORMAL) Urinalysis with reflex Culture (09/10/2018 7:50 AM EDT) Patholo gist Method Time Signature Glucose UA Negative Negative [facility] mg/dL [facility] LABORATORY Protein UA 100 (A) Negative [facility] mg/dL [facility] LABORATORY Bilirubin UA Negative Negative [facility] mg/dL [facility] LABORATORY Comment: Clinical correlation required for positi ve Urine Bilirubin results as false positive may occur with some drugs and d rug related products. If a false positive is suspected a serum total bili blandon should be considered if clinically indicated. Urobilinogen UA Normal Normal mg/dL [facility] LABORATORY pH UA 7.0 5.0 - 8.0 [facility] LABORATORY Blood UA Negative Negative mg/dL [facility] LABORATORY Ketones UA 5 (A) Negative mg/dL [facility] LABORATORY Nitrite UA Negative Negative [facility] LABORATORY Leukocytes UA Negative Negative [facility] LABORATORY Appearance UA Clear Clear [facility] LABORATORY Spec [place] UA 1.010 1.002 - 1.030 [facility] LABORATORY Color UA Straw Yellow [facility] LABORATORY Culture Reflexed No [facility] LABORATORY Specimen (Source) Anatomical Collection Method Collection Time Re ceived Time Location / / Volume Laterality Urine specimen 09/10/2018 7:50 09/10/2018 9:15 obtained by clean AM EDT AM EDT catch procedure (specimen) Resulting Agency Comment Spec In Lab Unique Moody MD URINE ORDERABLES Performing Organization Address City/[facility]/[place] [address] (ABNORMAL) Differential, Automated (09/10/2018 2:45 AM EDT) [facility] Method Time Signature Neutrophils % 75.4 % [facility] LABORATORY Neutr Abs (ANC) 10.95 (H) 1.70 - [facility] 6.10 [facility] x10(3)/[facility] LABORATORY Lymphocytes % 8.9 % [facility] LABORATORY Lymphocytes Abs 1.3 0.9 - 3.[address] [facility] x10(3)/[facility] LABORATORY Monocytes % 12.6 % [facility] LABORATORY Monocyte Abs 1.8 (H) 0.3 - 0.[address] [facility] x10(3)/[facility] LABORATORY Eosinophils % 0.3 % [facility] LABORATORY Eosinophils Abs 0.0 0.0 - 0.[address] [facility] x10(3)/[facility] LABORATORY Basophils % 0.6 % [facility] LABORATORY Basophils Abs 0.1 0.0 - 0.[address] [facility] x10(3)/[facility] LABORATORY Immature Gran % 2.20 % [facility] LABORATORY Comment: Immature granulocytes(IG's)percentage an d absolute count will include metamyelocytes, myelocytes, and promyelo cytes. Blood smears from CBCs yielding IG's will be scanned manually for concor dance. If this scan disagrees with the automated IG or if promyelocytes are not ed, a manual differential will be performed. Blanca Gran Abs 0.32 (H) 0.00 - 0.04 x10(3)/[facility] LABORATORY Specimen Anatomical Collection Method Collection Time Receive d Time (Source) Location / / Volume Laterality Blood specimen 09/10/2018 2:45 AM 019 2:50 (specimen) EDT AM EDT Resulting Agency Comment Spec In Lab Thom Velasquez MD HEMATOLOGY ORDERABLES Performing Organization Address City/[facility]/[place] [address] (ABNORMAL) Hemogram (09/10/2018 2:45 AM EDT) Analysis Performed At Patho logist Time Signature WBC 14.5 (H) 4.0 - 9.[address] [facility] x10(3)/[facility] LABORATORY RBC 3.69 (L) 4.00 - [place] 5.21 [facility] x10(6)/[facility] LABORATORY Hemoglobin 11.2 (L) 11.7 - [facility] 15.5 gm/dL [facility] LABORATORY Hematocrit 33.8 (L) 35.7 - [facility] 45.8 % [facility] LABORATORY MCV 91.6 82.6 - [facility] 94.4 [facility] LABORATORY MCH 30.4 27.1 - [place] 32.0 pg [facility] LABORATORY MCHC 33.1 31.7 - [place] 35.0 gm/dL [facility] LABORATORY Platelets 244 145 - [address] [facility] x10(3)/[facility] LABORATORY RDWSD 47.9 (H) 37.0 - [facility] 46.0 [facility] LABORATORY RDWCV 14.3 (H) 11.5 - [facility] 14.1 % [facility] LABORATORY MPV 11.4 7.6 - 12.9 [facility] LABORATORY nRBC % Auto 0.0 % [facility] LABORATORY nRBC Abs Auto 0.000 0.000 - [facility] 0.000 [facility] x10(3)/[facility] LABORATORY Specimen Anatomical Collection Method Collection Time Receive d Time (Source) Location / / Volume Laterality Blood specimen 09/10/2018 2:45 AM 019 2:50 (specimen) EDT AM EDT Resulting Agency Comment Spec In Lab Thom A Ron HEMATOLOGY ORDERABLES Performing Organization Address City/State/[place] [address] Magnesium (09/10/2018 2:45 AM EDT) P athologist Signature Magnesium 0.90 0.69 - 1.07 [facility] mmol/L [facility] LABORATORY Specimen Anatomical Collection Method Collection Time Receive d Time (Source) Location / / Volume Laterality Blood specimen 09/10/2018 2:45 AM 019 2:50 (specimen) EDT AM EDT Resulting Agency Comment Spec In Lab Unique Moody MD CHEMISTRY ORDERABLES Performing Organization Address City/State/ZIP Code Phon e [place] [address] (ABNORMAL) BMP w/fasting Glucose (09/10/2018 2:45 AM EDT) athologist Signature Glucose 105 (H) 65 - [address] [facility] Fasting mg/dL [facility] LABORATORY Comment: ?Fasting* Glucose Interpretive [...] of Diabetes Mellitus, Position Statement from the [place] [employer]. ??Diabete s Care, Volume 33, Supplement 1, Apr 2009 BUN 44 (H) 8 - 18 mg/dL [facility] LABORATORY Creatinine 2.22 (H) 0.70 - 1.20 mg/dL [facility] LABORATORY Sodium 145 135 - 145 mmol/L [facility] LABORATORY Potassium 3.6 3.5 - 5.0 mmol/L [facility] LABORATORY Comment: Please note: ??Patients with WBC >100,00 0 may have falsely elevated Potassium levels. ??For accurate Potassium quantif ication in these patients send serum separator tube (gold top) for subsequent determinations. ??Contact the Clinical Chemistry Laboratory if there are any qu estions. Chloride 103 98 - 107 mmol/L [facility] LABORATORY CO2 25 22 - 31 mmol/L [facility] LABORATORY Anion Gap 17 (H) 5 - 15 mmol/L [facility] LABORATORY Calcium 8.8 8.5 - 10.5 mg/dL [facility] LABORATORY Estimated GFR 22 (L) >=60 mL/min/1.73 m?? [facility] LABORATORY Comment: The eGFR was calculated using the CKD-EP I equation. As with all creatinine based estimates of kidney function, eGFR values calculated with the CKD-EPI equation are not accurate in patients wi th acute kidney failure, extremes of body mass or the acutely ill. [email or web address] [place] CITYnk eGFR 25 (L) >=60 mL/min/1.73 m?? [facility] LABORATORY Comment: The eGFR was calculated using the CKD-EP I equation. As with all creatinine based estimates of kidney function, eGFR values calculated with the CKD-EPI equation are not accurate in patients wi th acute kidney failure, extremes of body mass or the acutely ill. [email or web address] [place] CITYnkf Specimen Anatomical Collection Method Collection Time Receive d Time (Source) Location / / Volume Laterality Blood specimen 09/10/2018 2:45 AM 019 2:50 (specimen) EDT AM EDT Resulting Agency Comment Spec In Lab Unique Moody MD CHEMISTRY ORDERABLES Performing Organization Address City/State/ZIP Code Phon e Number [place] [id number] HOSPITAL LABORATORY Drive (ABNORMAL) Differential, Automated (09/09/2018 2:50 AM EDT) [facility] Method Time Signature Neutrophils % 82.7 % [facility] LABORATORY Neutr Abs (ANC) 15.59 (H) 1.70 - [facility] 6.10 [facility] x10(3)/[facility] L LABORATORY Lymphocytes % 6.1 % [facility] LABORATORY Lymphocytes Abs 1.2 0.9 - 3.[address] [facility] x10(3)/[facility] LABORATORY Monocytes % 10.1 % [facility] LABORATORY Monocyte Abs 1.9 (H) 0.3 - 0.[address] [facility] x10(3)/[facility] LABORATORY Eosinophils % 0.1 % [facility] LABORATORY Eosinophils Abs 0.0 0.0 - 0.[address] [facility] x10(3)/[facility] LABORATORY Basophils % 0.3 % [facility] LABORATORY Basophils Abs 0.0 0.0 - 0.[address] [facility] x10(3)/[facility] LABORATORY Immature Gran % 0.70 % [facility] LABORATORY Comment: Immature granulocytes(IG's)percentage an d absolute count will include metamyelocytes, myelocytes, and promyelo cytes. Blood smears from CBCs yielding IG's will be scanned manually for concor dance. If this scan disagrees with the automated IG or if promyelocytes are not ed, a manual differential will be performed. Blanca Gran Abs 0.14 (H) 0.00 - 0.04 x10(3)/[facility] LABORATORY Specimen Anatomical Collection Method Collection Time Receive d Time (Source) Location / / Volume Laterality Blood specimen 09/09/2018 2:50 AM 019 2:54 (specimen) EDT AM EDT Resulting Agency Comment Spec In Lab Leah Cline MD HEMATOLOGY ORDERABLES Performing Organization Address City/State/[place] [address] (ABNORMAL) Hemogram (09/09/2018 2:50 AM EDT) Analysis Performed At Patho logist Time Signature WBC 18.8 (H) 4.0 - 9.[address] [facility] x10(3)/[facility] LABORATORY RBC 3.89 (L) 4.[address] - [facility] 5.21 [facility] x10(6)/[facility] LABORATORY Hemoglobin 11.9 11.7 - [facility] 15[facility] gm/dL [facility] LABORATORY Hematocrit 34.6 (L) 35.7 - [facility] 45.8 % [facility] LABORATORY MCV 88.9 82.6 - [facility] 94.4 fL [facility] LABORATORY MCH 30.6 27.1 - [facility] 32.0 pg [facility] LABORATORY MCHC 34.4 31.7 - [facility] 35.0 gm/dL [facility] LABORATORY Platelets 223 145 - 357 [place] x10(3)/[facility] LABORATORY RDWSD 44.3 37.0 - [place] 46.0 [facility] LABORATORY RDWCV 13.8 11.5 - [place] 14.1 % [facility] LABORATORY MPV 11.1 7.6 - 12.9 [place] [facility] LABORATORY nRBC % Auto 0.0 % [facility] LABORATORY nRBC Abs Auto 0.000 0.000 - [place] 0.000 [facility] x10(3)/[facility] LABORATORY Specimen Anatomical Collection Method Collection Time Receive d Time (Source) Location / / Volume Laterality Blood specimen 09/09/2018 2:50 AM 019 2:54 (specimen) EDT AM EDT Resulting Agency Comment Spec In Lab Leah Cline MD HEMATOLOGY ORDERABLES Performing Organization Address City/[facility]/ZIP Code Phon e Number [address] Magnesium (09/09/2018 2:50 AM EDT) P athologist Signature Magnesium 0.94 0.69 - 1.07 [facility] mmol/L [facility] LABORATORY Specimen Anatomical Collection Method Collection Time Receive d Time (Source) Location / / Volume Laterality Blood specimen 09/09/2018 2:50 AM 019 2:54 (specimen) EDT AM EDT Resulting Agency Comment Spec In Lab Unique Moody MD CHEMISTRY ORDERABLES Performing Organization Address City/[facility]/[place] [address] (ABNORMAL) BMP w/fasting Glucose (09/09/2018 2:50 AM EDT) P athologist Signature Glucose 110 (H) 65 - 99 [facility] Fasting mg/dL [facility] LABORATORY Comment: ?Fasting* Glucose Interpretive [...] of Diabetes Mellitus, Position Statement from the [place] [employer]. ??Diabete s Care, Volume 33, Supplement 1, Apr 2009 BUN 44 (H) 8 - 18 mg/dL [facility] LABORATORY Creatinine 2.42 (H) 0.70 - 1.20 mg/dL [facility] LABORATORY Sodium 140 135 - 145 mmol/L [facility] LABORATORY Potassium 4.3 3.5 - 5.0 mmol/L [facility] LABORATORY Comment: Please note: ??Patients with WBC >100,00 0 may have falsely elevated Potassium levels. ??For accurate Potassium quantif ication in these patients send serum separator tube (gold top) for subsequent determinations. ??Contact the Clinical Chemistry Laboratory if there are any qu estions. Chloride 100 98 - 107 mmol/L [facility] LABORATORY CO2 23 22 - 31 mmol/L [facility] LABORATORY Anion Gap 17 (H) 5 - 15 mmol/L [facility] LABORATORY Calcium 8.6 8.5 - 10.5 mg/dL [facility] LABORATORY Estimated GFR 20 (L) >=60 mL/min/1.73 m?? [facility] LABORATORY Comment: The eGFR was calculated using the CKD-EP I equation. As with all creatinine based estimates of kidney function, eGFR values calculated with the CKD-EPI equation are not accurate in patients wi th acute kidney failure, extremes of body mass or the acutely ill. [email or web address] eGFR 23 (L) >=60 mL/min/1.73 m?? [facility] LABORATORY Comment: The eGFR was calculated using the CKD-EP I equation. As with all creatinine based estimates of kidney function, eGFR values calculated with the CKD-EPI equation are not accurate in patients wi th acute kidney failure, extremes of body mass or the acutely ill. [email or web address] Specimen Anatomical Collection Method Collection Time Receive d Time (Source) Location / / Volume Laterality Blood specimen 09/09/2018 2:50 AM 019 2:54 (specimen) EDT AM EDT Resulting Agency Comment Spec In Lab Unique Moody MD CHEMISTRY ORDERABLES Performing Organization Address City/[facility]/ZIP Code Phon e Number [address] Scan, Peripheral Blood (09/08/2018 3:00 PM EDT) [facility] Method Time Signature Plat Estimate Normal [facility] LABORATORY RBC Morphology Abnormal [facility] LABORATORY Ovalocytes 6-10 /HPF [facility] LABORATORY Miguel Cells 1-5 /HPF [facility] LABORATORY Specimen Anatomical Collection Method Collection Time Receive d Time (Source) Location / / Volume Laterality Blood specimen 09/08/2018 3:00 PM 019 3:19 (specimen) EDT PM EDT Resulting Agency Comment Spec In Lab Corwin Hawk MD HEMATOLOGY ORDERABLES Performing Organization Address City/[facility]/ZIP Code Phon e Number [address] (ABNORMAL) Differential, Automated (09/08/2018 3:00 PM EDT) [facility] Method Time Signature Neutrophils % 87.1 % [facility] LABORATORY Neutr Abs (ANC) 18.84 (H) 1.70 - [facility] 6.10 [facility] x10(3)/[facility] L LABORATORY Lymphocytes % 3.5 % [facility] LABORATORY Lymphocytes Abs 0.8 (L) 0.9 - 3.[address] [facility] x10(3)/[facility] LABORATORY Monocytes % 8.2 % [facility] LABORATORY Monocyte Abs 1.8 (H) 0.3 - 0.[address] [facility] x10(3)/[facility] LABORATORY Eosinophils % 0.0 % [facility] LABORATORY Eosinophils Abs 0.0 0.0 - 0.[address] [facility] x10(3)/[facility] LABORATORY Basophils % 0.2 % [facility] LABORATORY Basophils Abs 0.0 0.0 - 0.[address] [facility] x10(3)/[facility] LABORATORY Immature Gran % 1.00 % [facility] LABORATORY Comment: Immature granulocytes(IG's)percentage an d absolute count will include metamyelocytes, myelocytes, and promyelo cytes. Blood smears from CBCs yielding IG's will be scanned manually for concor dance. If this scan disagrees with the automated IG or if promyelocytes are not ed, a manual differential will be performed. Blanca Gran Abs 0.22 (H) 0.00 - 0.04 x10(3)/[facility] LABORATORY Specimen Anatomical Collection Method Collection Time Receive d Time (Source) Location / / Volume Laterality Blood specimen 09/08/2018 3:00 PM 019 3:19 (specimen) EDT PM EDT Resulting Agency Comment Spec In Lab Corwin Hawk MD HEMATOLOGY ORDERABLES Performing Organization Address City/State/[place] [address] (ABNORMAL) Hemogram (09/08/2018 3:00 PM EDT) Analysis Performed At Patho logist Time Signature WBC 21.6 (H) 4.0 - 9.[address] [facility] x10(3)/[facility] LABORATORY RBC 3.80 (L) 4.00 - [facility] 5[facility]21 [facility] x10(6)/[facility] LABORATORY Hemoglobin 11.5 (L) 11.7 - [facility] 15.5 gm/dL [facility] LABORATORY Hematocrit 33.8 (L) 35.7 - [facility] 45.8 % [facility] LABORATORY MCV 88.9 82.6 - [facility] 94.4 fL [facility] LABORATORY MCH 30.3 27.1 - [facility] 32.0 pg [facility] LABORATORY MCHC 34.0 31.7 - [facility] 35.0 gm/dL [facility] LABORATORY Platelets 249 145 - [address] [facility] x10(3)/[facility] LABORATORY RDWSD 43.1 37.[address] [facility] 46.0 [facility] LABORATORY RDWCV 13.2 11.[address] - [facility] 14.1 % [facility] LABORATORY MPV 11.8 7.6 - 12.9 [facility] LABORATORY nRBC % Auto 0.0 % [facility] LABORATORY nRBC Abs Auto 0.000 0.000 - [facility] 0.000 [facility] x10(3)/[facility] LABORATORY Specimen Anatomical Collection Method Collection Time Receive d Time (Source) Location / / Volume Laterality Blood specimen 09/08/2018 3:00 PM 019 3:19 (specimen) EDT PM EDT Resulting Agency Comment Spec In Lab Corwin Hawk MD HEMATOLOGY ORDERABLES Performing Organization Address City/State/[place] [address] (ABNORMAL) Basic Metabolic Panel (non-fasting) (09/08/2018 3:00 PM EDT) athologist Signature Glucose Lvl 129 65 - [address] [facility] mg/dL [facility] LABORATORY Comment: Diabetes: >=200 mg/dL plus symp toms BUN 45 (H) 8 - 18 mg/dL [facility] LABORATORY Creatinine 2.67 (H) 0.70 - 1.20 mg/dL [facility] LABORATORY Sodium 137 135 - 145 mmol/L [facility] LABORATORY Potassium 4.3 3.5 - 5.0 mmol/L [facility] LABORATORY Comment: Please note: ??Patients with WBC >100,00 0 may have falsely elevated Potassium levels. ??For accurate Potassium quantif ication in these patients send serum separator tube (gold top) for subsequent determinations. ??Contact the Clinical Chemistry Laboratory if there are any qu estions. Chloride 97 (L) 98 - 107 mmol/L [facility] LABORATORY CO2 23 22 - 31 mmol/L [facility] LABORATORY Anion Gap 17 (H) 5 - 15 mmol/L [facility] LABORATORY Calcium 8.6 8.5 - 10.5 mg/dL [facility] LABORATORY Estimated GFR 18 (L) >=60 mL/min/1.73 m?? [facility] LABORATORY Comment: The eGFR was calculated using the CKD-EP I equation. As with all creatinine based estimates of kidney function, eGFR values calculated with the CKD-EPI equation are not accurate in patients wi th acute kidney failure, extremes of body mass or the acutely ill. [email or web address] CITYnk eGFR 20 (L) >=60 mL/min/1.73 m?? [facility] LABORATORY Comment: The eGFR was calculated using the CKD-EP I equation. As with all creatinine based estimates of kidney function, eGFR values calculated with the CKD-EPI equation are not accurate in patients wi th acute kidney failure, extremes of body mass or the acutely ill. [email or web address] [place] CITYnkf Specimen Anatomical Collection Method Collection Time Receive d Time (Source) Location / / Volume Laterality Blood specimen 09/08/2018 3:00 PM 019 3:19 (specimen) EDT PM EDT Resulting Agency Comment Spec In Lab Wilman Randolph MD CHEMISTRY ORDERABLES Performing Organization Address City/State/[place] [address] (ABNORMAL) Differential, Automated (09/08/2018 6:30 AM EDT) [facility] Method Time Signature Neutrophils % 91.0 % [facility] LABORATORY Neutr Abs (ANC) 20.39 (H) 1.[address] - [facility] 6.10 [facility] x10(3)/[facility] L LABORATORY Lymphocytes % 2.5 % [facility] LABORATORY Lymphocytes Abs 0.6 (L) 0.9 - 3.[address] [facility] x10(3)/[facility] LABORATORY Monocytes % 5.7 % [facility] LABORATORY Monocyte Abs 1.3 (H) 0.3 - 0.[address] [facility] x10(3)/[facility] LABORATORY Eosinophils % 0.0 % [facility] LABORATORY Eosinophils Abs 0.0 0.0 - 0.[address] [facility] x10(3)/[facility] LABORATORY Basophils % 0.1 % [facility] LABORATORY Basophils Abs 0.0 0.0 - 0.[address] [facility] x10(3)/[facility] LABORATORY Immature Gran % 0.70 % [facility] LABORATORY Comment: Immature granulocytes(IG's)percentage an d absolute count will include metamyelocytes, myelocytes, and promyelo cytes. Blood smears from CBCs yielding IG's will be scanned manually for concor dance. If this scan disagrees with the automated IG or if promyelocytes are not ed, a manual differential will be performed. Blanca Gran Abs 0.15 (H) 0.00 - 0.04 x10(3)/[facility] LABORATORY Specimen Anatomical Collection Method Collection Time Receive d Time (Source) Location / / Volume Laterality Blood specimen 09/08/2018 6:30 AM 019 6:46 (specimen) EDT AM EDT Resulting Agency Comment Spec In Lab Leah Cline MD HEMATOLOGY ORDERABLES Performing Organization Address City/State/[place] [address] (ABNORMAL) Hemogram (09/08/2018 6:30 AM EDT) Analysis Performed At Patho logist Time Signature WBC 22.4 (H) 4.0 - 9.[address] [facility] x10(3)/[facility] LABORATORY RBC 3.77 (L) 4.00 - [facility] 5.21 [facility] x10(6)/[facility] LABORATORY Hemoglobin 11.6 (L) 11.7 - [facility] 15.5 gm/dL [facility] LABORATORY Hematocrit 33.5 (L) 35.7 - [facility] 45.8 % [facility] LABORATORY MCV 88.9 82.6 - [facility] 94.4 [facility] LABORATORY MCH 30.8 27.1 - [facility] 32.0 pg [facility] LABORATORY MCHC 34.6 31.7 - [facility] 35.0 gm/dL [facility] LABORATORY Platelets 216 145 - [address] [facility] x10(3)/[facility] LABORATORY RDWSD 43.0 37.0 - [facility] 46.0 [facility] RDWCV 13.2 11.5 - [facility] 14.1 % [facility] LABORATORY MPV 11.1 7.6 - 12.9 [facility] LABORATORY nRBC % Auto 0.0 % [facility] LABORATORY nRBC Abs Auto 0.000 0.000 - [facility] 0.000 [facility] x10(3)/[facility] LABORATORY Specimen Anatomical Collection Method Collection Time Receive d Time (Source) Location / / Volume Laterality Blood specimen 09/08/2018 6:30 AM 019 6:46 (specimen) EDT AM EDT Resulting Agency Comment Spec In Lab Leah Cline MD HEMATOLOGY ORDERABLES Performing Organization Address City/State/ZIP Code Phon e Number [address] Magnesium (09/08/2018 5:15 AM EDT) P athologist Signature Magnesium 1.04 0.69 - 1.[address] [facility] mmol/L [facility] LABORATORY Specimen Anatomical Collection Method Collection Time Receive d Time (Source) Location / / Volume Laterality Blood specimen 09/08/2018 5:15 AM 019 5:32 (specimen) EDT AM EDT Resulting Agency Comment Spec In Lab Unique Moody MD CHEMISTRY ORDERABLES Performing Organization Address City/[facility]/ZIP Code Phon e Number [address] (ABNORMAL) BMP w/fasting Glucose (09/08/2018 5:15 AM EDT) P athologist Signature Glucose 138 (H) 65 - [address] [facility] Fasting mg/dL [facility] LABORATORY Comment: ?Fasting* Glucose Interpretive [...] of Diabetes Mellitus, Position Statement from the [place] [employer]. ??Diabete s Care, Volume 33, Supplement 1, Apr 2009 BUN 42 (H) 8 - 18 mg/dL [facility] LABORATORY Creatinine 2.69 (H) 0.70 - 1.20 mg/dL [facility] LABORATORY Sodium 138 135 - 145 mmol/L [facility] LABORATORY Potassium 4.8 3.5 - 5.0 mmol/L [facility] LABORATORY Comment: Please note: ??Patients with WBC >100,00 0 may have falsely elevated Potassium levels. ??For accurate Potassium quantif ication in these patients send serum separator tube (gold top) for subsequent determinations. ??Contact the Clinical Chemistry Laboratory if there are any qu estions. Chloride 96 (L) 98 - 107 mmol/L [facility] LABORATORY CO2 26 22 - 31 mmol/L [facility] LABORATORY Anion Gap 16 (H) 5 - 15 mmol/L [facility] LABORATORY Calcium 8.9 8.5 - 10.5 mg/dL [facility] LABORATORY Estimated GFR 17 (L) >=60 mL/min/1.73 m?? [facility] LABORATORY Comment: The eGFR was calculated using the CKD-EP I equation. As with all creatinine based estimates of kidney function, eGFR values calculated with the CKD-EPI equation are not accurate in patients wi th acute kidney failure, extremes of body mass or the acutely ill. [email or web address] [place] CITYnkf eGFR 20 (L) >=60 mL/min/1.73 m?? [facility] LABORATORY Comment: The eGFR was calculated using the CKD-EP I equation. As with all creatinine based estimates of kidney function, eGFR values calculated with the CKD-EPI equation are not accurate in patients wi th acute kidney failure, extremes of body mass or the acutely ill. [email or web address] [place] CITYnkf Specimen Anatomical Collection Method Collection Time Receive d Time (Source) Location / / Volume Laterality Blood specimen 09/08/2018 5:15 AM 019 5:32 (specimen) EDT AM EDT Resulting Agency Comment Spec In Lab Unique Moody MD CHEMISTRY ORDERABLES Performing Organization Address City/[facility]/ZIP Code Phon e Number [address] Lactate, whole blood, send to lab (Leb/CGP) (09/08/2018 5:15 AM EDT) athologist Signature Lactate WB 1.0 0.5 - 2.[address] [facility] mmol/L [facility] LABORATORY Specimen Anatomical Collection Method Collection Time Receive d Time (Source) Location / / Volume Laterality Blood specimen 09/08/2018 5:15 AM 019 5:32 (specimen) EDT AM EDT Resulting Agency Comment Spec In Lab Wilman Randolph MD CHEMISTRY ORDERABLES Performing Organization Address City/[facility]/[place] [address] XR Abdomen 1 view [...] abdominal radiograph 2018 at 2045 hours. COMPARISON: [employer] view from CT abdomen 1 05/16/2017. FINDINGS: [...] abdominal radiograph 2018 at 2045 hours. COMPARISON: [employer] view from CT abdomen 1 05/16/2017. FINDINGS: [...] Scan, Peripheral Blood (09/07/2018 8:35 PM EDT) [facility] gist Method Time Signature Plat Estimate Normal [facility] LABORATORY RBC Morphology Abnormal [facility] LABORATORY Ovalocytes 1-5 /HPF [facility] LABORATORY [place] Cells 1-5 /HPF [facility] LABORATORY Specimen Anatomical Collection Method Collection Time Receive d Time (Source) Location / / Volume Laterality Blood specimen 09/07/2018 8:35 PM 019 8:47 (specimen) EDT PM EDT Resulting Agency Comment Spec In Lab Leah Cline MD HEMATOLOGY ORDERABLES Performing Organization Address City/State/ZIP Code Phon e Number [address] Lactate, whole blood, send to lab (Leb/CGP) (09/07/2018 8:35 PM EDT) P athologist Signature Lactate WB 1.0 0.5 - 2.[address] [facility] mmol/L [facility] LABORATORY Specimen Anatomical Collection Method Collection Time Receive d Time (Source) Location / / Volume Laterality Blood specimen 09/07/2018 8:35 PM 019 8:46 (specimen) EDT PM EDT Resulting Agency Comment Spec In Lab Wilman Randolph MD CHEMISTRY ORDERABLES Performing Organization Address City/State/ZIP Code Phon e Number [address] (ABNORMAL) Differential, Automated (09/07/2018 8:35 PM EDT) Patholo gist Method Time Signature Neutrophils % 87.9 % [facility] LABORATORY Neutr Abs (ANC) 21.24 (H) 1.70 - [facility] 6.10 [facility] x10(3)/[facility] L LABORATORY Lymphocytes % 2.8 % [facility] LABORATORY Lymphocytes Abs 0.7 (L) 0.9 - 3.[address] [facility] x10(3)/[facility] LABORATORY Monocytes % 5.7 % [facility] LABORATORY Monocyte Abs 1.4 (H) 0.3 - 0.[address] [facility] x10(3)/[facility] LABORATORY Eosinophils % 1.4 % [facility] LABORATORY Eosinophils Abs 0.3 0.0 - 0.[address] [facility] x10(3)/[facility] LABORATORY Basophils % 0.5 % [facility] LABORATORY Basophils Abs 0.1 0.0 - 0.[address] [facility] x10(3)/[facility] LABORATORY Immature Gran % 1.70 % [facility] LABORATORY Comment: Immature granulocytes(IG's)percentage an d absolute count will include metamyelocytes, myelocytes, and promyelo cytes. Blood smears from CBCs yielding IG's will be scanned manually for concor dance. If this scan disagrees with the automated IG or if promyelocytes are not ed, a manual differential will be performed. Blanca Gran Abs 0.41 (H) 0.00 - 0.04 x10(3)/[facility] LABORATORY Specimen Anatomical Collection Method Collection Time Receive d Time (Source) Location / / Volume Laterality Blood specimen 09/07/2018 8:35 PM 019 8:47 (specimen) EDT PM EDT Resulting Agency Comment Spec In Lab Leah Cline MD HEMATOLOGY ORDERABLES Performing Organization Address City/State/[place] [address] (ABNORMAL) Hemogram (09/07/2018 8:35 PM EDT) Analysis Performed At Patho logist Time Signature WBC 24.2 (H) 4.0 - 9.[address] [facility] x10(3)/[facility] LABORATORY RBC 4.20 4.00 - [facility] 5.21 [facility] x10(6)/[facility] LABORATORY Hemoglobin 12.7 11.7 - [facility] 15.5 gm/dL [facility] LABORATORY Hematocrit 36.6 35.7 - [facility] 45.8 % [facility] LABORATORY MCV 87.1 82.6 - [facility] 94.4 [facility] LABORATORY MCH 30.2 27.1 - [facility] 32.0 pg [facility] LABORATORY MCHC 34.7 31.7 - [facility] 35.0 gm/dL [facility] LABORATORY Platelets 223 145 - [address] [facility] x10(3)/[facility] LABORATORY RDWSD 42.2 37.0 - [facility] 46.0 [facility] LABORATORY RDWCV 13.2 11.5 - [facility] 14.1 % [facility] LABORATORY MPV 11.1 7.6 - 12.9 [facility] LABORATORY nRBC % Auto 0.0 % [facility] LABORATORY nRBC Abs Auto 0.000 0.000 - [facility] 0.000 [facility] x10(3)/[facility] LABORATORY Specimen Anatomical Collection Method Collection Time Receive d Time (Source) Location / / Volume Laterality Blood specimen 09/07/2018 8:35 PM 019 8:47 (specimen) EDT PM EDT Resulting Agency Comment Spec In Lab Leah Cline MD HEMATOLOGY ORDERABLES Performing Organization Address City/State/[place] [address] (ABNORMAL) Basic Metabolic Panel (non-fasting) (09/07/2018 8:35 PM EDT) P athologist Signature Glucose Lvl 199 65 - [address] [facility] mg/dL [facility] LABORATORY Comment: Diabetes: >=200 mg/dL plus symp toms BUN 40 (H) 8 - 18 mg/dL [facility] LABORATORY Creatinine 2.85 (H) 0.70 - 1.20 mg/dL [facility] LABORATORY Sodium 137 135 - 145 mmol/L [facility] LABORATORY Potassium 4.5 3.5 - 5.0 mmol/L [facility] LABORATORY Comment: Please note: ??Patients with WBC >100,00 0 may have falsely elevated Potassium levels. ??For accurate Potassium quantif ication in these patients send serum separator tube (gold top) for subsequent determinations. ??Contact the Clinical Chemistry Laboratory if there are any qu estions. Chloride 96 (L) 98 - 107 mmol/L [facility] LABORATORY CO2 25 22 - 31 mmol/L [facility] LABORATORY Anion Gap 16 (H) 5 - 15 mmol/L [facility] LABORATORY Calcium 8.8 8.5 - 10.5 mg/dL [facility] LABORATORY Estimated GFR 16 (L) >=60 mL/min/1.73 m?? [facility] LABORATORY Comment: The eGFR was calculated using the CKD-EP I equation. As with all creatinine based estimates of kidney function, eGFR values calculated with the CKD-EPI equation are not accurate in patients wi th acute kidney failure, extremes of body mass or the acutely ill. [email or web address] eGFR 19 (L) >=60 mL/min/1.73 m?? [facility] LABORATORY Comment: The eGFR was calculated using the CKD-EP I equation. As with all creatinine based estimates of kidney function, eGFR values calculated with the CKD-EPI equation are not accurate in patients wi th acute kidney failure, extremes of body mass or the acutely ill. [email or web address] Specimen Anatomical Collection Method Collection Time Receive d Time (Source) Location / / Volume Laterality Blood specimen 09/07/2018 8:35 PM 019 8:47 (specimen) EDT PM EDT Resulting Agency Comment Spec In Lab Wilman Randolph MD CHEMISTRY ORDERABLES Performing Organization Address City/[facility]/ZIP Code Phon e Number [address] POCT Glucose (09/07/2018 7:59 PM EDT) P athologist Signature POC Glucose 162 65 - [address] [facility] mg/dL [facility] LABORATORY Comment: Supplemental ranges: <140 mg/dL before meals <180 mg/dL all other times of the day Specimen Anatomical Collection Method Collection Time Receive d Time (Source) Location / / Volume Laterality Blood specimen 09/07/2018 7:59 PM 019 7:59 (specimen) EDT PM EDT iWlman Randolph MD POINT OF CARE TEST ORDERABLE S Performing Organization Address City/[facility]/[place] [address] Prepare RBC (09/07/2018 3:55 PM EDT) P athologist Signature Dispensed? Yes [facility] LABORATORY Specimen Anatomical Collection Method Collection Time Receive d Time (Source) Location / / Volume Laterality Blood specimen 09/07/2018 3:55 PM 019 3:54 (specimen) EDT PM EDT Resulting Agency Comment Spec In Lab Wilman Randolph MD BLOOD BANK ORDERABLES Performing Organization Address City/[facility]/[place] [address] (ABNORMAL) BLOOD GAS 2 ARTERIAL (09/07/2018 3:49 PM EDT) Analysis Performed At Patho logist Time Signature pH Art 7.45 7.35 - [facility] 7.45 [facility] LABORATORY pCO2 Art 39 35 - 45 [facility] LABORATORY pO2 Art 86 85 - 104 [facility] LABORATORY HCO3 Art 26.4 (H) 20.[address] [facility] 26.0 [facility] mmol/L [facility] LABORATORY BE Art 2.4 -3.0 - 3.[address] [facility] mmol/L [facility] LABORATORY Hgb Blood Gas 12.4 11.[address] - [facility] 15.5 gm/dL [facility] LABORATORY O2HB Art 95.4 94.[address] - [facility] 97.0 % [facility] LABORATORY COHB Art 0.9 % [facility] LABORATORY Comment: Nonsmokers: 0.5-1.5% COHB Smokers: Variable, but usually less than 10% Toxic: 20-30% COHB Lethal: Greater than 60% COHB METHB Art 0.3 <=1.5 % [facility] LABORATORY Na Whole Blood 121 (L) 135 - 145 mmol/L [facility] LABORATORY K Whole Blood 3.5 3.5 - 5.0 mmol/L [facility] LABORATORY Comment: Please note: Patients with WBC >100,000 may have falsely elevated Potassium levels. Contact the Clinical Chemistry L aboratory if there are any questions. ICa Whole Blood 1.15 1.15 - 1.33 mmol/L [facility] LABORATORY Comment: Note: ??Total bilirubin higher than 20 m g/dL may lead to falsely low ionized calcium. CL Whole Blood 98 98 - 107 mmol/L [facility] LABORATORY Gluc Whole Bld 113 65 - 199 mg/dL [facility] LABORATORY Comment: Diabetes: >=200 mg/dL plus symp toms. Lactate WB 1.1 0.5 - 2.2 mmol/L [facility] LABORATORY FIO2 Art 60 % [facility] LABORATORY PF Ratio Art 143 [facility] LABORATORY Specimen Anatomical Collection Method Collection Time Receive d Time (Source) Location / / Volume Laterality Blood specimen 09/07/2018 3:49 PM 019 3:49 (specimen) EDT PM EDT Wilman Randolph MD CHEMISTRY ORDERABLES Performing Organization Address City/State/ZIP Code Phon e Number [address] ABORH Recheck Status (09/07/2018 7:46 AM EDT) [facility] Method Time Signature ABORH [facility] LABORATORY Specimen Anatomical Collection Method Collection Time Receive d Time (Source) Location / / Volume Laterality Blood specimen 09/07/2018 7:46 AM 019 7:46 (specimen) EDT AM EDT Resulting Agency Comment Spec In Lab Clinton Collins MD BLOOD BANK ORDERABLES Performing Organization Address City/[facility]/ZIP Code Phon e Number [address] Antibody screen (09/07/2018 7:46 AM EDT) [facility] Method [place] Signature Ab Screen Negative [facility] LABORATORY Expires at 09/10/[address] [facility] [id number] on: [facility] LABORATORY Specimen Anatomical Collection Method Collection Time Receive d Time (Source) Location / / Volume Laterality Blood specimen 09/07/2018 7:46 AM 019 7:46 (specimen) EDT AM EDT Resulting Agency Comment Spec In Lab Clinton Collins MD BLOOD BANK ORDERABLES Performing Organization Address City/[facility]/[place] [address] ABO/Rh Typing (09/07/2018 7:46 AM EDT) P athologist Signature ABORh Type A Pos [facility] LABORATORY Specimen Anatomical Collection Method Collection Time Receive d Time (Source) Location / / Volume Laterality Blood specimen 09/07/2018 7:46 AM 019 7:46 (specimen) EDT AM EDT Resulting Agency Comment Spec In Lab Clinton Collins MD BLOOD BANK ORDERABLES Performing Organization Address City/State/[place] [address] (ABNORMAL) Differential, Automated (09/07/2018 12:30 AM EDT) [facility] Signature Neutrophils % 65.7 % [facility] LABORATORY Neutr Abs (ANC) 7.68 (H) 1.70 - [facility] 6.10 [facility] x10(3)/[facility] LABORATORY Lymphocytes % 13.2 % [facility] LABORATORY Lymphocytes Abs 1.5 0.9 - 3.[address] [facility] x10(3)/[facility] LABORATORY Monocytes % 11.6 % [facility] LABORATORY Monocyte Abs 1.4 (H) 0.3 - 0.[address] [facility] x10(3)/[facility] LABORATORY Eosinophils % 8.3 % [facility] LABORATORY Eosinophils Abs 1.0 (H) 0.0 - 0.[address] [facility] x10(3)/[facility] LABORATORY Basophils % 0.6 % [facility] LABORATORY Basophils Abs 0.1 0.0 - 0.1 [place] 493910(3)/[facility] LABORATORY Immature Gran % 0.60 % [facility] LABORATORY Comment: Immature granulocytes(IG's)percentage an d absolute count will include metamyelocytes, myelocytes, and promyelo cytes. Blood smears from CBCs yielding IG's will be scanned manually for concor dance. If this scan disagrees with the automated IG or if promyelocytes are not ed, a manual differential will be performed. Blanca Gran Abs 0.07 (H) 0.00 - 0.04 x10(3)/[facility] LABORATORY Specimen Anatomical Collection Method Collection Time Receive d Time (Source) Location / / Volume Laterality Blood specimen 09/07/2018 12:30 9 (specimen) AM EDT 12:54 AM EDT Resulting Agency Comment Spec In Lab Rhea Cevallos MD HEMATOLOGY ORDERABLES Performing Organization Address City/State/[place] [address] (ABNORMAL) Hemogram (09/07/2018 12:30 AM EDT) Analysis Performed At [facility] logist Time Signature WBC 11.7 (H) 4.0 - 9.[address] [facility] x10(3)/[facility] LABORATORY RBC 3.94 (L) 4.00 - [facility] 5.21 [facility] x10(6)/[facility] LABORATORY Hemoglobin 11.9 11.7 - [facility] 15.5 gm/dL [facility] LABORATORY Hematocrit 34.4 (L) 35.7 - [facility] 45.8 % [facility] LABORATORY MCV 87.3 82.6 - [facility] 94.4 [facility] LABORATORY MCH 30.2 27.1 - [place] [place] 32.0 pg [facility] LABORATORY MCHC 34.6 31.7 - [place] 35.0 gm/dL [facility] LABORATORY Platelets 223 145 - [address] [facility] x10(3)/[facility] LABORATORY RDWSD 41.9 37.0 - [facility] 46.0 [facility] LABORATORY RDWCV 13.1 11.5 - [facility] 14.1 % [facility] LABORATORY MPV 12.1 7.6 - 12.9 [facility] LABORATORY nRBC % Auto 0.0 % [facility] LABORATORY nRBC Abs Auto 0.000 0.000 - [place] 0.000 [facility] x10(3)/[facility] LABORATORY Specimen Anatomical Collection Method Collection Time Receive d Time (Source) Location / / Volume Laterality Blood specimen 09/07/2018 12:30 9 (specimen) AM EDT 12:54 AM EDT Resulting Agency Comment Spec In Lab Rhea Cevallos MD HEMATOLOGY ORDERABLES Performing Organization Address City/State/[place] [address] Magnesium (09/07/2018 12:30 AM EDT) P athologist Signature Magnesium 0.84 0.69 - 1.[address] [facility] mmol/L [facility] LABORATORY Specimen Anatomical Collection Method Collection Time Receive d Time (Source) Location / / Volume Laterality Blood specimen 09/07/2018 12:30 9 (specimen) AM EDT 12:53 AM EDT Resulting Agency Comment Spec In Lab Unique Moody MD CHEMISTRY ORDERABLES Performing Organization Address City/State/[place] [address] (ABNORMAL) BMP w/fasting Glucose (09/07/2018 12:30 AM EDT) athologist Signature Glucose 112 (H) 65 - [address] [facility] Fasting mg/dL [facility] LABORATORY Comment: ?Fasting* Glucose Interpretive [...] of Diabetes Mellitus, Position Statement from the [place] [employer]. ??Diabete s Care, Volume 33, Supplement 1, Apr 2009 BUN 39 (H) 8 - 18 mg/dL [facility] LABORATORY Creatinine 2.51 (H) 0.70 - 1.20 mg/dL [facility] LABORATORY Sodium 136 135 - 145 mmol/L [facility] LABORATORY Potassium 4.4 3.5 - 5.0 mmol/L [facility] LABORATORY Comment: delta result rechecked-KLA Please note: ??Patients with WBC >100,00 0 may have falsely elevated Potassium levels. ??For accurate Potassium quantif ication in these patients send serum separator tube (gold top) for subsequent determinations. ??Contact the Clinical Chemistry Laboratory if there are any qu estions. Chloride 97 (L) 98 - 107 mmol/L [facility] LABORATORY CO2 27 22 - 31 mmol/L [facility] LABORATORY Anion Gap 12 5 - 15 mmol/L [facility] LABORATORY Calcium 8.5 8.5 - 10.5 mg/dL [facility] LABORATORY Estimated GFR 19 (L) >=60 mL/min/1.73 m?? [facility] LABORATORY Comment: The eGFR was calculated using the CKD-EP I equation. As with all creatinine based estimates of kidney function, eGFR values calculated with the CKD-EPI equation are not accurate in patients wi th acute kidney failure, extremes of body mass or the acutely ill. [email or web address] CITYnkf eGFR 22 (L) >=60 mL/min/1.73 m?? [facility] LABORATORY Comment: The eGFR was calculated using the CKD-EP I equation. As with all creatinine based estimates of kidney function, eGFR values calculated with the CKD-EPI equation are not accurate in patients wi th acute kidney failure, extremes of body mass or the acutely ill. [email or web address] [place] CITYnkf Specimen Anatomical Collection Method Collection Time Receive d Time (Source) Location / / Volume Laterality Blood specimen 09/07/2018 12:30 9 (specimen) AM EDT 12:53 AM EDT Resulting Agency Comment Spec In Lab Unique Moody MD CHEMISTRY ORDERABLES Performing Organization Address City/[facility]/[place] [address] (ABNORMAL) Potassium (09/06/2018 5:10 PM EDT) athologist Signature Potassium 3.3 (L) 3.5 - 5.[address] [facility] mmol/L [facility] LABORATORY Comment: Please note: ??Patients [...] Moody MD CHEMISTRY ORDERABLES Performing Organization Address City/[facility]/ZIP Code Phon e Number [address] Gold Tube HOLD (09/06/2018 5:10 PM EDT) P athologist Signature Gold Hold Sample in [facility] lab. [facility] LABORATORY Specimen Anatomical Collection Method Collection Time Receive d Time (Source) Location / / Volume Laterality Blood specimen 09/06/2018 5:10 PM 019 5:43 (specimen) EDT PM EDT Wilman Randolph MD CHEMISTRY ORDERABLES Performing Organization Address City/State/[place] [address] XR Chest PA or [...] Component Value Ref Test Analysis Performed At [facility] Range Method Time Signature VB Text Department: Vascular Surgery Lab VASCUBASE Report Patient: [id number] (PRETTY HARMON) CPT: 94784 ICD10: Z01.818;I70.1 Referring Physician: WILMAN RANDOLPH ?? [...] database f or comparison. Electronically Signed by: LEAH PEREZ on 2018-09-07 05:38:38 PM VB Text End of Report VASCUBASE Report Specimen (Source) Anatomical Collection Method Collection Time Re ceived Time Location / / Volume Laterality 09/06/2018 11:09 AM EDT Wilman Randolph MD VASCULAR ORDERABLES Performing Organization Address City/State/ZIP Code Phon e Number [facility] (ABNORMAL) BMP w/fasting Glucose (09/06/2018 8:55 AM EDT) athologist Signature Glucose 226 (H) 65 - [address] [facility] Fasting mg/dL [facility] LABORATORY Comment: ?Fasting* Glucose Interpretive [...] of Diabetes Mellitus, Position Statement from the [place] [employer]. ??Diabete s Care, Volume 33, Supplement 1, Apr 2009 BUN 37 (H) 8 - 18 mg/dL [facility] LABORATORY Creatinine 2.34 (H) 0.70 - 1.20 mg/dL [facility] LABORATORY Sodium 136 135 - 145 mmol/L [facility] LABORATORY Potassium 2.9 (Critical) 3.5 - 5.0 mmol/L [facility] LABORATORY Comment: Results rechecked Called by: chandana, Read back by: Odalys Walton son, Date/Time:09/06/18 10:47. Please note: ??Patients with WBC >100,00 0 may have falsely elevated Potassium levels. ??For accurate Potassium quantif ication in these patients send serum separator tube (gold top) for subsequent determinations. ??Contact the Clinical Chemistry Laboratory if there are any qu estions. Chloride 96 (L) 98 - 107 mmol/L [facility] LABORATORY CO2 26 22 - 31 mmol/L [facility] LABORATORY Anion Gap 14 5 - 15 mmol/L [facility] LABORATORY Calcium 8.3 (L) 8.5 - 10.5 mg/dL [facility] LABORATORY Estimated GFR 21 (L) >=60 mL/min/1.73 m?? [facility] LABORATORY Comment: The eGFR was calculated using the CKD-EP I equation. As with all creatinine based estimates of kidney function, eGFR values calculated with the CKD-EPI equation are not accurate in patients wi th acute kidney failure, extremes of body mass or the acutely ill. [email or web address] [place] CITYnkf eGFR 24 (L) >=60 mL/min/1.73 m?? [facility] LABORATORY Comment: The eGFR was calculated using the CKD-EP I equation. As with all creatinine based estimates of kidney function, eGFR values calculated with the CKD-EPI equation are not accurate in patients wi th acute kidney failure, extremes of body mass or the acutely ill. [email or web address] [place] CITYnkf Specimen Anatomical Collection Method Collection Time Receive d Time (Source) Location / / Volume Laterality Blood specimen 09/06/2018 8:55 AM 019 9:02 (specimen) EDT AM EDT Resulting Agency Comment Spec In Lab Tyron Kemp MD CHEMISTRY ORDERABLES Performing Organization Address City/State/[place] [address] (ABNORMAL) Differential, Automated (09/06/2018 6:00 AM EDT) [facility] gist Method Time Signature Neutrophils % 64.3 % [facility] LABORATORY Neutr Abs (ANC) 6.80 (H) 1.[address] - [facility] 6.10 [facility] x10(3)/[facility] LABORATORY Lymphocytes % 15.2 % [facility] LABORATORY Lymphocytes Abs 1.6 0.9 - 3.[address] [facility] x10(3)/[facility] LABORATORY Monocytes % 10.5 % [facility] LABORATORY Monocyte Abs 1.1 (H) 0.3 - 0.[address] [facility] x10(3)/[facility] LABORATORY Eosinophils % 8.6 % [facility] LABORATORY Eosinophils Abs 0.9 (H) 0.0 - 0.[address] [facility] x10(3)/[facility] LABORATORY Basophils % 0.7 % [facility] LABORATORY Basophils Abs 0.1 0.0 - 0.[address] [facility] x10(3)/[facility] LABORATORY Immature Gran % 0.70 % [facility] LABORATORY Comment: Immature granulocytes(IG's)percentage an d absolute count will include metamyelocytes, myelocytes, and promyelo cytes. Blood smears from CBCs yielding IG's will be scanned manually for concor dance. If this scan disagrees with the automated IG or if promyelocytes are not ed, a manual differential will be performed. Blanca Gran Abs 0.07 (H) 0.00 - 0.04 x10(3)/[facility] LABORATORY Specimen Anatomical Collection Method Collection Time Receive d Time (Source) Location / / Volume Laterality Blood specimen 09/06/2018 6:00 AM 019 6:14 (specimen) EDT AM EDT Resulting Agency Comment Spec In Lab Rhea Cevallos MD HEMATOLOGY ORDERABLES Performing Organization Address City/State/[place] [address] (ABNORMAL) Hemogram (09/06/2018 6:00 AM EDT) Analysis Performed At Patho logist Time Signature WBC 10.6 (H) 4.0 - 9.[address] [facility] x10(3)/[facility] LABORATORY RBC 4.43 4.00 - [facility] 5.21 [facility] x10(6)/[facility] LABORATORY Hemoglobin 13.2 11.7 - [facility] 15.5 gm/dL [facility] LABORATORY Hematocrit 38.1 35.7 - [facility] 45.8 % [facility] LABORATORY MCV 86.0 82.[address] - [facility] 94.4 [facility] LABORATORY MCH 29.8 27.1 - [facility] 32.0 pg [facility] LABORATORY MCHC 34.6 31.7 - [facility] 35.0 gm/dL [facility] LABORATORY Platelets 228 145 - [address] [facility] x10(3)/[facility] LABORATORY RDWSD 41.4 37.0 - [facility] 46.0 [facility] LABORATORY RDWCV 13.2 11.5 - [facility] 14.1 % [facility] LABORATORY MPV 11.4 7.6 - 12.9 [facility] LABORATORY nRBC % Auto 0.0 % [facility] LABORATORY nRBC Abs Auto 0.000 0.000 - [place] 0.000 [facility] x10(3)/[facility] LABORATORY Specimen Anatomical Collection Method Collection Time Receive d Time (Source) Location / / Volume Laterality Blood specimen 09/06/2018 6:00 AM 019 6:14 (specimen) EDT AM EDT Resulting Agency Comment Spec In Lab Rhea Cevallos MD HEMATOLOGY ORDERABLES Performing Organization Address City/State/ZIP Code Phon e Number [address] Magnesium (09/06/2018 6:00 AM EDT) athologist Signature Magnesium 0.88 0.69 - 1.07 [facility] mmol/L [facility] LABORATORY Specimen Anatomical Collection Method Collection Time Receive d Time (Source) Location / / Volume Laterality Blood specimen 09/06/2018 6:00 AM 019 6:14 (specimen) EDT AM EDT Resulting Agency Comment Spec In Lab Unique Moody MD CHEMISTRY ORDERABLES Performing Organization Address City/State/ZIP Code Phon e Number [address] (ABNORMAL) BMP w/fasting Glucose (09/06/2018 6:00 AM EDT) P athologist Signature Glucose 120 (H) 65 - 99 [place] Fasting mg/dL [facility] LABORATORY Comment: ?Fasting* Glucose Interpretive [...] of Diabetes Mellitus, Position Statement from the [place] [employer]. ??Diabete s Care, Volume 33, Supplement 1, Apr 2009 BUN 40 (H) 8 - 18 mg/dL [facility] LABORATORY Creatinine 2.46 (H) 0.70 - 1.20 mg/dL [facility] LABORATORY Sodium 140 135 - 145 mmol/L [facility] LABORATORY Potassium 3.3 (L) 3.5 - 5.0 mmol/L [facility] LABORATORY Comment: result rechecked-mkf Please note: ??Patients with WBC >100,00 0 may have falsely elevated Potassium levels. ??For accurate Potassium quantif ication in these patients send serum separator tube (gold top) for subsequent determinations. ??Contact the Clinical Chemistry Laboratory if there are any qu estions. Chloride 96 (L) 98 - 107 mmol/L [facility] LABORATORY CO2 28 22 - 31 mmol/L [facility] LABORATORY Anion Gap 16 (H) 5 - 15 mmol/L [facility] LABORATORY Calcium 8.9 8.5 - 10.5 mg/dL [facility] LABORATORY Estimated GFR 19 (L) >=60 mL/min/1.73 m?? [facility] LABORATORY Comment: The eGFR was calculated using the CKD-EP I equation. As with all creatinine based estimates of kidney function, eGFR values calculated with the CKD-EPI equation are not accurate in patients wi th acute kidney failure, extremes of body mass or the acutely ill. [email or web address] CITYnkf eGFR 22 (L) >=60 mL/min/1.73 m?? [facility] LABORATORY Comment: The eGFR was calculated using the CKD-EP I equation. As with all creatinine based estimates of kidney function, eGFR values calculated with the CKD-EPI equation are not accurate in patients wi th acute kidney failure, extremes of body mass or the acutely ill. [email or web address] CITYnkf Specimen Anatomical Collection Method Collection Time Receive d Time (Source) Location / / Volume Laterality Blood specimen 09/06/2018 6:00 AM 019 6:14 (specimen) EDT AM EDT Resulting Agency Comment Spec In Lab Unique Moody MD CHEMISTRY ORDERABLES Performing Organization Address City/State/Z[place] [address] [facility] [address] Potassium (09/05/2018 2:54 AM EDT) P athologist Signature Potassium 4.9 3.5 - 5.0 [facility] mmol/L [facility] LABORATORY Comment: delta result rechecked-KLA Please note: [...] Organization Address City/State/ZIP Code Phon e Number [address] (ABNORMAL) Differential, Automated (09/05/2018 1:50 AM EDT) Patholo gist Method Time Signature Neutrophils % 72.2 % [facility] LABORATORY Neutr Abs (ANC) 8.67 (H) 1.[address] - [facility] 6.10 [facility] x10(3)/[facility] LABORATORY Lymphocytes % 12.7 % [facility] LABORATORY Lymphocytes Abs 1.5 0.9 - 3.[address] [facility] x10(3)/[facility] LABORATORY Monocytes % 10.0 % [facility] LABORATORY Monocyte Abs 1.2 (H) 0.3 - 0.[address] [facility] x10(3)/[facility] LABORATORY Eosinophils % 4.1 % [facility] LABORATORY Eosinophils Abs 0.5 (H) 0.0 - 0.[address] [facility] x10(3)/[facility] LABORATORY Basophils % 0.4 % [facility] LABORATORY Basophils Abs 0.0 0.0 - 0.[address] [facility] x10(3)/[facility] LABORATORY Immature Gran % 0.60 % [facility] LABORATORY Comment: Immature granulocytes(IG's)percentage an d absolute count will include metamyelocytes, myelocytes, and promyelo cytes. Blood smears from CBCs yielding IG's will be scanned manually for concor dance. If this scan disagrees with the automated IG or if promyelocytes are not ed, a manual differential will be performed. Blanca Gran Abs 0.07 (H) 0.00 - 0.04 x10(3)/[facility] LABORATORY Specimen Anatomical Collection Method Collection Time Receive d Time (Source) Location / / Volume Laterality Blood specimen 09/05/2018 1:50 AM 019 2:00 (specimen) EDT AM EDT Resulting Agency Comment Spec In Lab Rhea Cevallos MD HEMATOLOGY ORDERABLES Performing Organization Address City/State/[place] [address] (ABNORMAL) Hemogram (09/05/2018 1:50 AM EDT) Analysis Performed At Patho logist Time Signature WBC 12.0 (H) 4.0 - 9.5 [facility] x[facility](3[facility] LABORATORY RBC 3.96 (L) 4.00 - [facility] 5.21 [facility] x10(6)/[facility] LABORATORY Hemoglobin 12.3 11.7 - [facility] 15.5 gm/dL [facility] LABORATORY Hematocrit 34.1 (L) 35.7 - [facility] 45.8 % [facility] LABORATORY MCV 86.1 82.6 - [facility] 94.4 [facility] LABORATORY MCH 31.1 27.1 - [place] 32.0 pg [facility] LABORATORY MCHC 36.1 (H) 31.7 - [facility] 35.0 gm/dL [facility] LABORATORY Platelets 243 145 - 357 [facility](3[facility] LABORATORY RDWSD 40.6 37.0 - [place] 46.0 [facility] LABORATORY RDWCV 13.0 11.5 - [facility] 14.1 % [facility] LABORATORY MPV 12.2 7.6 - 12.9 [facility] nRBC % Auto 0.0 % [facility] LABORATORY nRBC Abs Auto 0.000 0.000 - [facility] 0.000 [facility] x10(3)/[facility] LABORATORY Specimen Anatomical Collection Method Collection Time Receive d Time (Source) Location / / Volume Laterality Blood specimen 09/05/2018 1:50 AM 019 2:00 (specimen) EDT AM EDT Resulting Agency Comment Spec In Lab Rhae Cevallos MD HEMATOLOGY ORDERABLES Performing Organization Address City/State/ZIP Code Phon e Number [address] (ABNORMAL) Magnesium (09/05/2018 1:50 AM EDT) athologist Signature Magnesium 1.24 (H) 0.69 - 1.[address] [facility] mmol/L [facility] LABORATORY Specimen Anatomical Collection Method Collection Time Receive d Time (Source) Location / / Volume Laterality Blood specimen 09/05/2018 1:50 AM 019 2:00 (specimen) EDT AM EDT Resulting Agency Comment Spec In Lab Unique Moody MD CHEMISTRY ORDERABLES Performing Organization Address City/State/ZIP Code Phon e Number [address] (ABNORMAL) BMP w/fasting Glucose (09/05/2018 1:50 AM EDT) P athologist Signature Glucose 130 (H) 65 - [address] [facility] Fasting mg/dL [facility] LABORATORY Comment: ?Fasting* Glucose Interpretive [...] of Diabetes Mellitus, Position Statement from the [place] [employer]. ??Diabete s Care, Volume 33, Supplement 1, Apr 2009 BUN 44 (H) 8 - 18 mg/dL [facility] LABORATORY Creatinine 2.50 (H) 0.70 - 1.20 mg/dL [facility] LABORATORY Sodium 137 135 - 145 mmol/L [facility] LABORATORY Potassium Not Perf 3.5 - 5.0 [facility] LABORATORY Comment: Unable to quantitate [...] estions. Chloride 101 98 - 107 mmol/L [facility] [facility] Comment: delta result rechecked-KLA CO2 24 22 - 31 mmol/L [facility] Anion Gap 12 5 - 15 mmol/L [facility] Calcium 8.5 8.5 - 10.5 mg/dL [facility] Estimated GFR 19 (L) >=60 mL/min/1.73 m?? [facility] Comment: The eGFR was calculated using the CKD-EP I equation. As with all creatinine based estimates of kidney function, eGFR values calculated with the CKD-EPI equation are not accurate in patients wi th acute kidney failure, extremes of body mass or the acutely ill. [email or web address] CITYnkf eGFR 22 (L) >=60 mL/min/1.73 m?? [facility] Comment: The eGFR was calculated using the CKD-EP I equation. As with all creatinine based estimates of kidney function, eGFR values calculated with the CKD-EPI equation are not accurate in patients wi th acute kidney failure, extremes of body mass or the acutely ill. [email or web address] CITYnkf Specimen Anatomical Collection Method Collection Time Receive d Time (Source) Location / / Volume Laterality Blood specimen 09/05/2018 1:50 AM 019 2:00 (specimen) EDT AM EDT Resulting Agency Comment Spec In Lab Unique Moody MD CHEMISTRY ORDERABLES Performing Organization Address City/State/[place] [address] (ABNORMAL) BMP w/fasting Glucose (09/04/2018 1:20 PM EDT) athologist Signature Glucose 228 (H) 65 - [address] [facility] Fasting mg/dL [facility] Comment: ?Fasting* Glucose Interpretive [...] of Diabetes Mellitus, Position Statement from the [place] [employer]. ??Diabete s Care, Volume 33, Supplement 1, Apr 2009 BUN 47 (H) 8 - 18 mg/dL [facility] Creatinine 2.45 (H) 0.70 - 1.20 mg/dL [facility] Sodium 131 (L) 135 - 145 mmol/L [facility] Potassium 3.2 (L) 3.5 - 5.0 mmol/L [facility] Comment: Please note: ??Patients with WBC >100,00 0 may have falsely elevated Potassium levels. ??For accurate Potassium quantif ication in these patients send serum separator tube (gold top) for subsequent determinations. ??Contact the Clinical Chemistry Laboratory if there are any qu estions. Chloride 91 (L) 98 - 107 mmol/L [facility] CO2 23 22 - 31 mmol/L [facility] Anion Gap 17 (H) 5 - 15 mmol/L [facility] Calcium 8.5 8.5 - 10.5 mg/dL [facility] Estimated GFR 19 (L) >=60 mL/min/1.73 m?? [facility] Comment: The eGFR was calculated using the CKD-EP I equation. As with all creatinine based estimates of kidney function, eGFR values calculated with the CKD-EPI equation are not accurate in patients wi th acute kidney failure, extremes of body mass or the acutely ill. [email or web address] CITYnkf eGFR 23 (L) >=60 mL/min/1.73 m?? [facility] Comment: The eGFR was calculated using the CKD-EP I equation. As with all creatinine based estimates of kidney function, eGFR values calculated with the CKD-EPI equation are not accurate in patients wi th acute kidney failure, extremes of body mass or the acutely ill. [email or web address] CITYnkf Specimen Anatomical Collection Method Collection Time Receive d Time (Source) Location / / Volume Laterality Blood specimen 09/04/2018 1:20 PM 019 1:59 (specimen) EDT PM EDT Resulting Agency Comment Spec In Lab Wilman Randolph MD CHEMISTRY ORDERABLES Performing Organization Address City/[facility]/ZIP Code Phon e Number [address] Magnesium (09/04/2018 2:25 AM EDT) P athologist Signature Magnesium 0.92 0.69 - 1.[address] [facility] mmol/L [facility] Specimen Anatomical Collection Method Collection Time Receive d Time (Source) Location / / Volume Laterality Blood specimen Venous Draw / 09/04/2018 2:25 AM 2018 5:04 (specimen) Unknown EDT AM EDT Resulting Agency Comment Spec In Lab Rhea Cevallos MD CHEMISTRY ORDERABLES Performing Organization Address City/[facility]/ZIP Code Phon e Number [address] (ABNORMAL) Differential, Automated (09/04/2018 2:25 AM EDT) [facility] gist Method Time Signature Neutrophils % 83.5 % [facility] Neutr Abs (ANC) 11.28 (H) 1.70 - [facility] 6.10 [facility] x10(3)/[facility] LABORATORY Lymphocytes % 7.5 % [facility] Lymphocytes Abs 1.0 0.9 - 3.[address] [facility] x10(3)/[facility] LABORATORY Monocytes % 7.9 % [facility] Monocyte Abs 1.1 (H) 0.3 - 0.[address] [facility] x10(3)/[facility] LABORATORY Eosinophils % 0.1 % [facility] Eosinophils Abs 0.0 0.0 - 0.[address] [facility] x10(3)/[facility] LABORATORY Basophils % 0.1 % [facility] Basophils Abs 0.0 0.0 - 0.[address] [facility] x10(3)/[facility] LABORATORY Immature Gran % 0.90 % [facility] Comment: Immature granulocytes(IG's)percentage an d absolute count will include metamyelocytes, myelocytes, and promyelo cytes. Blood smears from CBCs yielding IG's will be scanned manually for concor dance. If this scan disagrees with the automated IG or if promyelocytes are not ed, a manual differential will be performed. Blanca Gran Abs 0.12 (H) 0.00 - 0.04 x10(3)/[facility] LABORATORY Specimen Anatomical Collection Method Collection Time Receive d Time (Source) Location / / Volume Laterality Blood specimen 09/04/2018 2:25 AM 019 2:45 (specimen) EDT AM EDT Resulting Agency Comment Spec In Lab Adriano Howell MD HEMATOLOGY ORDERABLES Performing Organization Address City/State/[place] [address] (ABNORMAL) Hemogram (09/04/2018 2:25 AM EDT) Analysis Performed At [facility] logist Time Signature WBC 13.5 (H) 4.0 - 9.[address] [facility] x10(3)/[facility] LABORATORY RBC 3.93 (L) 4.00 - [place] 5.21 [facility] x10(6)/[facility] LABORATORY Hemoglobin 12.0 11.7 - [place] 15.5 gm/dL [facility] Hematocrit 34.4 (L) 35.7 - [place] 45.8 % [facility]ATORY MCV 87.5 82.6 - [facility] 94.4 [facility] LABORATORY MCH 30.5 27.1 - [place] 32.0 pg [facility]ORY MCHC 34.9 31.7 - [place] 35.0 gm/dL [facility] Platelets 221 145 - 357 [place] x10(3)/[facility] LABORATORY RDWSD 42.3 37.0 - [place] 46.0 [facility] LABORATORY RDWCV 13.2 11.5 - [facility] 14.[facility] % [facility] LABORATORY MPV 11.5 7.6 - 12.9 [facility] LABORATORY nRBC % Auto 0.0 % [facility] nRBC Abs Auto 0.000 0.000 - [place] 0.000 [facility] x10(3)/[facility] LABORATORY Specimen Anatomical Collection Method Collection Time Receive d Time (Source) Location / / Volume Laterality Blood specimen 09/04/2018 2:25 AM 019 2:45 (specimen) EDT AM EDT Resulting Agency Comment Spec In Lab Adriano Howell MD HEMATOLOGY ORDERABLES Performing Organization Address City/State/[place] [address] (ABNORMAL) BMP w/fasting Glucose (09/04/2018 2:25 AM EDT) athologist Signature Glucose 122 (H) 65 - 99 [facility] Fasting mg/dL [facility] Comment: ?Fasting* Glucose Interpretive C riteria Normal [...] of Diabetes Mellitus, Position Statement from the [place] [employer]. ??Diabete s Care, Volume 33, Supplement 1, Apr 2009 BUN 53 (H) 8 - 18 mg/dL [facility] Creatinine 2.73 (H) 0.70 - 1.20 mg/dL [facility] Sodium 137 135 - 145 mmol/L [facility] Potassium 3.6 3.5 - 5.0 mmol/L [facility] Comment: Please note: ??Patients with WBC >100,00 0 may have falsely elevated Potassium levels. ??For accurate Potassium quantif ication in these patients send serum separator tube (gold top) for subsequent determinations. ??Contact the Clinical Chemistry Laboratory if there are any qu estions. Chloride 98 98 - 107 mmol/L [facility] CO2 23 22 - 31 mmol/L [facility] Anion Gap 16 (H) 5 - 15 mmol/L [facility] Calcium 8.7 8.5 - 10.5 mg/dL [facility] Estimated GFR 17 (L) >=60 mL/min/1.73 m?? [facility] Comment: The eGFR was calculated using the CKD-EP I equation. As with all creatinine based estimates of kidney function, eGFR values calculated with the CKD-EPI equation are not accurate in patients wi th acute kidney failure, extremes of body mass or the acutely ill. [email or web address] eGFR 20 (L) >=60 mL/min/1.73 m?? [facility] Comment: The eGFR was calculated using the CKD-EP I equation. As with all creatinine based estimates of kidney function, eGFR values calculated with the CKD-EPI equation are not accurate in patients wi th acute kidney failure, extremes of body mass or the acutely ill. [email or web address] Specimen Anatomical Collection Method Collection Time Receive d Time (Source) Location / / Volume Laterality Blood specimen 09/04/2018 2:25 AM 019 2:45 (specimen) EDT AM EDT Resulting Agency Comment Spec In Lab Unique Moody MD CHEMISTRY ORDERABLES Performing Organization Address City/[facility]/ZIP Code Phon e Number [address] Magnesium (09/03/2018 7:57 PM EDT) athologist Signature Magnesium 0.94 0.69 - 1.[address] [facility] mmol/L [facility] Specimen Anatomical Collection Method Collection Time Receive d Time (Source) Location / / Volume Laterality Blood specimen 09/03/2018 7:57 PM 019 8:11 (specimen) EDT PM EDT Resulting Agency Comment Spec In Lab Thom Munguia MD CHEMISTRY ORDERABLES Performing Organization Address City/[facility]/[place] [address] (ABNORMAL) BMP w/fasting Glucose (09/03/2018 7:57 PM EDT) P athologist Signature Glucose 165 (H) 65 - [address] [facility] Fasting mg/dL [facility] Comment: ?Fasting* Glucose Interpretive [...] of Diabetes Mellitus, Position Statement from the [place] [employer]. ??Diabete s Care, Volume 33, Supplement 1, Apr 2009 BUN 51 (H) 8 - 18 mg/dL [facility] Creatinine 2.76 (H) 0.70 - 1.20 mg/dL [facility] Sodium 135 135 - 145 mmol/L [facility] Potassium 4.0 3.5 - 5.0 mmol/L [facility] Comment: result rechecked-csb Please note: ??Patients with WBC >100,00 0 may have falsely elevated Potassium levels. ??For accurate Potassium quantif ication in these patients send serum separator tube (gold top) for subsequent determinations. ??Contact the Clinical Chemistry Laboratory if there are any qu estions. Chloride 97 (L) 98 - 107 mmol/L [facility] CO2 22 22 - 31 mmol/L [facility] Anion Gap 16 (H) 5 - 15 mmol/L [facility] Calcium 8.5 8.5 - 10.5 mg/dL [facility] Estimated GFR 17 (L) >=60 mL/min/1.73 m?? [facility] Comment: The eGFR was calculated using the CKD-EP I equation. As with all creatinine based estimates of kidney function, eGFR values calculated with the CKD-EPI equation are not accurate in patients wi th acute kidney failure, extremes of body mass or the acutely ill. [email or web address] CITYnkf eGFR 20 (L) >=60 mL/min/1.73 m?? [facility] Comment: The eGFR was calculated using the CKD-EP I equation. As with all creatinine based estimates of kidney function, eGFR values calculated with the CKD-EPI equation are not accurate in patients wi th acute kidney failure, extremes of body mass or the acutely ill. [email or web address] CITYnkf Specimen Anatomical Collection Method Collection Time Receive d Time (Source) Location / / Volume Laterality Blood specimen 09/03/2018 7:57 PM 019 8:11 (specimen) EDT PM EDT Resulting Agency Comment Spec In Lab Thom Munguia MD CHEMISTRY ORDERABLES Performing Organization Address City/State/[place] [address] Renin Activity (09/03/2018 6:10 PM EDT) athologist Signature Renin Activity 25 ng/ml/hr [facility] Comment: REFERENCE VALUE------ (Peripheral vein specimen) Na-deplete, upright: ??Mean: 5.9 ??Range: 2.9-10.8 Na-replete, upright: ??Mean: 1.0 ??Range: < or =0.6-3.0 ADDITIONAL INFORMATIO N Testing performed by Liquid Chromatograp hy-Tandem Mass Spectrometry (LC-MS/MS). This test was developed and its performa nce characteristics determined by [facility] in a manner co nsistent with CLIA requirements. This test has not been cher ared or approved by the U.S. Food and Drug Administration. Test Performed by: [facility] [address] [id number] Specimen Anatomical Collection Method Collection Time Receive d Time (Source) Location / / Volume Laterality Blood specimen 09/03/2018 6:10 PM 019 (specimen) EDT 10:46 AM EDT Resulting Agency Comment Spec In Lab Tyron Kemp MD CHEMISTRY ORDERABLES Performing Organization Address City/State/[place] [address] [facility] [address] Troponin (09/03/2018 6:55 AM EDT) athologist Signature Troponin-T <0.01 0.00 - 0.[address] [facility] ng/mL [facility] Comment: The 99th percentile for Troponin T is le ss than 0.01 ng/mL, any detectable cTnT concentration using this assay should be considered elevated. According to the third universal definit ion of myocardial infarction the following criteria with a clinical prese ntation consistent with acute myocardial ischemia meets the diagnosis for a myocardial infarction (SC). Detection of a rise and/or fall of [...] additional sample may be indicated. Reference: Third Bowlus Definition of Myocardial Infarction. Journal of the [place] [employer] 2012;60:1581-98 Specimen Anatomical Collection Method Collection Time Receive d Time (Source) Location / / Volume Laterality Blood specimen 09/03/2018 6:55 AM 019 7:04 (specimen) EDT AM EDT Resulting Agency Comment Spec In Lab Thom Munguia MD CHEMISTRY ORDERABLES Performing Organization Address City/State/[place] [address] (ABNORMAL) Basic Metabolic Panel (non-fasting) (09/03/2018 6:55 AM EDT) P athologist Signature Glucose Lvl 140 65 - [address] [facility] mg/dL [facility] Comment: Diabetes: >=200 mg/dL plus symp toms BUN 50 (H) 8 - 18 mg/dL [facility] Creatinine 2.80 (H) 0.70 - 1.20 mg/dL [facility] Sodium 131 (L) 135 - 145 mmol/L [facility] Potassium 5.2 (H) 3.5 - 5.0 mmol/L [facility] Comment: Please note: ??Patients with WBC >100,00 0 may have falsely elevated Potassium levels. ??For accurate Potassium quantif ication in these patients send serum separator tube (gold top) for subsequent determinations. ??Contact the Clinical Chemistry Laboratory if there are any qu estions. Chloride 99 98 - 107 mmol/L [facility] CO2 19 (L) 22 - 31 mmol/L [facility] Anion Gap 13 5 - 15 mmol/L [facility] Calcium 8.4 (L) 8.5 - 10.5 mg/dL [facility] Estimated GFR 17 (L) >=60 mL/min/1.73 m?? [facility] Comment: The eGFR was calculated using the CKD-EP I equation. As with all creatinine based estimates of kidney function, eGFR values calculated with the CKD-EPI equation are not accurate in patients wi th acute kidney failure, extremes of body mass or the acutely ill. [email or web address] CITYnkf eGFR 19 (L) >=60 mL/min/1.73 m?? [facility] Comment: The eGFR was calculated using the CKD-EP I equation. As with all creatinine based estimates of kidney function, eGFR values calculated with the CKD-EPI equation are not accurate in patients wi th acute kidney failure, extremes of body mass or the acutely ill. [email or web address] CITYnkf Specimen Anatomical Collection Method Collection Time Receive d Time (Source) Location / / Volume Laterality Blood specimen 09/03/2018 6:55 AM 019 7:04 (specimen) EDT AM EDT Resulting Agency Comment Spec In Lab Thom Munguia MD CHEMISTRY ORDERABLES Performing Organization Address City/State/[place] [address] (ABNORMAL) BLOOD GAS 2 VENOUS (09/03/2018 5:24 AM EDT) P athologist Signature pH Ward 7.35 7.[address] - [facility] 7.42 [facility] pCO2 Ward 39 (L) 41 - 51 [facility] LABORATORY pO2 Ward 52 (H) 25 - 40 [facility] LABORATORY HCO3 Ward 21.0 mmol/L [facility] BE Ward -4.6 mmol/L [facility] Hgb Blood Gas 13.4 11.[address] - [facility] 15.5 gm/dL [facility] O2HB Ward 85.6 % [facility] COHB Ward 0.6 % [facility] Comment: Nonsmokers: 0.5-1.5% COHB Smokers: Variable, but usually less than 10% Toxic: 20-30% COHB Lethal: Greater than 60% COHB METHB Ward 0.5 <=1.5 % [facility] Na Whole Blood 129 (L) 135 - 145 mmol/L [facility] K Whole Blood 5.0 3.5 - 5.0 mmol/L [facility] Comment: Please note: Patients with WBC >100,000 may have falsely elevated Potassium levels. Contact the Clinical Chemistry L aboratory if there are any questions. ICa Whole Blood 1.11 (L) 1.15 - 1.33 mmol/L [facility] Comment: Note: ??Total bilirubin higher than 20 m g/dL may lead to falsely low ionized calcium. CL Whole Blood 101 98 - 107 mmol/L [facility] Gluc Whole Bld 153 65 - 199 mg/dL [facility] Comment: Diabetes: >=200 mg/dL plus symp toms Lactate WB 1.0 0.5 - 2.2 mmol/L [facility] BGas Source Venous [facility] Specimen Anatomical Collection Method Collection Time Receive d Time (Source) Location / / Volume Laterality Blood specimen 09/03/2018 5:24 AM 019 5:24 (specimen) EDT AM EDT Thom Munguia MD CHEMISTRY ORDERABLES Performing Organization Address City/State/[place] [address] EKG 12 Lead (09/03/2018 3:21 AM EDT) Component Value Ref Range Test Analysis Performed Pathologis t Method Time At Signature Ventricular rate 73 BPM MUSE SYSTEM Atrial Rate 73 BPM MUSE SYSTEM P-R Interval 142 ms MUSE SYSTEM QRS Duration 82 ms MUSE SYSTEM Q-T Interval 422 ms MUSE SYSTEM QTC Calculated 464 ms MUSE SYSTEM (Bezet) Calculated P Elaine 35 degrees MUSE SYSTEM Calculated R Elaine 30 degrees MUSE SYSTEM Calculated T Elaine 57 degrees MUSE SYSTEM INTERPRETATION Normal sinus rhythm MUSE SYSTEM Nonspecfic ST segment changes Abnormal ECG When compared with ECG of 02-SEP-2018 00:58, No significant change was found Confirmed by MD MOE AARON ([id number]) on 09/03/2018 4:17:59 PM Specimen Anatomical Collection Method Collection Time Receive d Time (Source) Location / / Volume Laterality 09/03/2018 3:21 AM 9 4:17 EDT PM EDT Vilma Yudi V, TRENCH DIGGING MACHINE OPERATOR ECG ORDERABLES Performing Organization Address City/State/ZIP Code Phon e Number MUSE SYSTEM Troponin (09/03/2018 3:15 AM EDT) P athologist Signature Troponin-T <0.01 0.00 - 0.[address] [facility] ng/mL [facility] Comment: The 99th percentile for Troponin T is le ss than 0.01 ng/mL, any detectable cTnT concentration using this assay should be considered elevated. According to the third universal definit ion of myocardial infarction the following criteria with a clinical prese ntation consistent with acute myocardial ischemia meets the diagnosis for a myocardial infarction (SC). Detection of a rise and/or fall of [...] additional sample may be indicated. Reference: Third Bowlus Definition of Myocardial Infarction. Journal of the [place] [employer] 2012;60:1581-98 Specimen Anatomical Collection Method Collection Time Receive d Time (Source) Location / / Volume Laterality Blood specimen 09/03/2018 3:15 AM 019 3:19 (specimen) EDT AM EDT Resulting Agency Comment Spec In Lab Vilma Mantilla APRN CHEMISTRY ORDERABLES Performing Organization Address City/State/ZIP Code Phon e Number [place] [id number] XR Chest PA or [...] this report, please contact e number below. Vilma Mantilla APRN IMG DX ORDERABLES Phosphorus (09/03/2018 12:35 AM EDT) P athologist Signature Phosphorus 4.4 2.5 - 4.5 [place] mg/dL [facility] Specimen Anatomical Collection Method Collection Time Receive d Time (Source) Location / / Volume Laterality Blood specimen 09/03/2018 12:35 9 (specimen) AM EDT 12:39 AM EDT Resulting Agency Comment Spec In Lab Ren Hoffmann MD CHEMISTRY ORDERABLES Performing Organization Address City/[facility]/[place] [address] Magnesium (09/03/2018 12:35 AM EDT) P athologist Signature Magnesium 0.95 0.69 - 1.07 [place] mmol/L [facility] Specimen Anatomical Collection Method Collection Time Receive d Time (Source) Location / / Volume Laterality Blood specimen 09/03/2018 12:35 9 (specimen) AM EDT 12:39 AM EDT Resulting Agency Comment Spec In Lab Ren Hoffmann MD CHEMISTRY ORDERABLES Performing Organization Address City/State/[place] [address] (ABNORMAL) Basic Metabolic Panel (non-fasting) (09/03/2018 12:35 AM EDT) athologist Signature Glucose Lvl 172 65 - [address] [facility] mg/dL [facility] Comment: Diabetes: >=200 mg/dL plus symp toms BUN 48 (H) 8 - 18 mg/dL [facility] Creatinine 2.89 (H) 0.70 - 1.20 mg/dL [facility] Sodium 133 (L) 135 - 145 mmol/L [facility] Potassium 4.7 3.5 - 5.0 mmol/L [facility] Comment: Please note: ??Patients with WBC >100,00 0 may have falsely elevated Potassium levels. ??For accurate Potassium quantif ication in these patients send serum separator tube (gold top) for subsequent determinations. ??Contact the Clinical Chemistry Laboratory if there are any qu estions. Chloride 98 98 - 107 mmol/L [facility] CO2 20 (L) 22 - 31 mmol/L [facility] Anion Gap 15 5 - 15 mmol/L [facility] Calcium 8.2 (L) 8.5 - 10.5 mg/dL [facility] Estimated GFR 16 (L) >=60 mL/min/1.73 m?? [facility] Comment: The eGFR was calculated using the CKD-EP I equation. As with all creatinine based estimates of kidney function, eGFR values calculated with the CKD-EPI equation are not accurate in patients wi th acute kidney failure, extremes of body mass or the acutely ill. [email or web address] eGFR 18 (L) >=60 mL/min/1.73 m?? [facility] Comment: The eGFR was calculated using the CKD-EP I equation. As with all creatinine based estimates of kidney function, eGFR values calculated with the CKD-EPI equation are not accurate in patients wi th acute kidney failure, extremes of body mass or the acutely ill. [email or web address] Specimen Anatomical Collection Method Collection Time Receive d Time (Source) Location / / Volume Laterality Blood specimen 09/03/2018 12:35 9 (specimen) AM EDT 12:39 AM EDT Resulting Agency Comment Spec In Lab Ren Hoffmann MD CHEMISTRY ORDERABLES Performing Organization Address City/State/[place] [address] (ABNORMAL) Differential, Automated (09/02/2018 2:07 PM EDT) [facility] Method Time Signature Neutrophils % 87.5 % [facility] Neutr Abs (ANC) 8.46 (H) 1.70 - [facility] 6.10 [facility] x10(3)/[facility] LABORATORY Lymphocytes % 6.2 % [facility] Lymphocytes Abs 0.6 (L) 0.9 - 3.[address] [facility] x10(3)/[facility] LABORATORY Monocytes % 5.9 % [facility] Monocyte Abs 0.6 0.3 - 0.[address] [facility] x10(3)/[facility] LABORATORY Eosinophils % 0.0 % [facility] Eosinophils Abs 0.0 0.0 - [address] [facility] x10(3)/[facility] LABORATORY Basophils % 0.1 % [facility] Basophils Abs 0.0 0.0 - [address] [facility] x10(3)/[facility] LABORATORY Immature Gran % 0.30 % [facility] Comment: Immature granulocytes(IG's)percentage an d absolute count will include metamyelocytes, myelocytes, and promyelo cytes. Blood smears from CBCs yielding IG's will be scanned manually for concor dance. If this scan disagrees with the automated IG or if promyelocytes are not ed, a manual differential will be performed. Blanca Gran Abs 0.03 0.00 - 0.04 x10(3)/[facility] Specimen Anatomical Collection Method Collection Time Receive d Time (Source) Location / / Volume Laterality Blood specimen 09/02/2018 2:07 PM 019 2:12 (specimen) EDT PM EDT Resulting Agency Comment Spec In Lab Leah Cline MD HEMATOLOGY ORDERABLES Performing Organization Address City/[facility]/[place] [address] (ABNORMAL) Hemogram (09/02/2018 2:07 PM EDT) Analysis Performed At Patho logist Time Signature WBC 9.7 (H) 4.0 - 9.5 [facility] LABORATORY RBC 3.89 (L) 4.00 - [facility] 5.21 [facility] x10(6)/[facility] LABORATORY Hemoglobin 11.8 11.7 - [facility] 15.5 gm/dL [facility] LABORATORY Hematocrit 33.5 (L) 35.7 - [facility] 45.8 % [facility] LABORATORY MCV 86.1 82.6 - [facility] 94.4 [facility] LABORATORY MCH 30.3 27.1 - [place] 32.0 pg [facility] LABORATORY MCHC 35.2 (H) 31.7 - [facility] 35.0 gm/dL [facility] LABORATORY Platelets 229 145 - [address] [facility] x10(3)/[facility] LABORATORY RDWSD 40.4 37.0 - [facility] 46.0 [facility] LABORATORY RDWCV 12.9 11.5 - [facility] [employer] 14.1 % [facility] LABORATORY MPV 10.9 7.6 - 12.9 [facility] nRBC % Auto 0.0 % [facility] nRBC Abs Auto 0.000 0.000 - [facility] 0.000 [facility] x10(3)/[facility] LABORATORY Specimen Anatomical Collection Method Collection Time Receive d Time (Source) Location / / Volume Laterality Blood specimen 09/02/2018 2:07 PM 019 2:12 (specimen) EDT PM EDT Resulting Agency Comment Spec In Lab Leah Cline MD HEMATOLOGY ORDERABLES Performing Organization Address City/[facility]/[place] [address] (ABNORMAL) Phosphorus (09/02/2018 3:29 AM EDT) athologist Signature Phosphorus 6.2 (H) 2.5 - 4.5 [facility] LABOR[facility]ORY Specimen Anatomical Collection Method Collection Time Receive d Time (Source) Location / / Volume Laterality Blood specimen 09/02/2018 3:29 AM 019 3:33 (specimen) EDT AM EDT Resulting Agency Comment Spec In Lab Liliana Echeverria MD CHEMISTRY ORDERABLES Performing Organization Address City/[facility]/ZIP [facility] [place] [address] Magnesium (09/02/2018 3:29 AM EDT) athologist [facility] Magnesium 0.97 0.69 - 1.07 [facility] mmol/L [facility]OR[facility]ORY Specimen Anatomical Collection Method Collection Time Receive d Time (Source) Location / / Volume Laterality Blood specimen 09/02/2018 3:29 AM 019 3:33 (specimen) EDT AM EDT Resulting Agency Comment Spec In Lab Liliana Echeverria MD CHEMISTRY ORDERABLES Performing Organization Address City/[facility] Phon e Number [address] (ABNORMAL) Basic Metabolic Panel (non-fasting) (09/02/2018 3:29 AM EDT) athologist [facility] Glucose Lvl 142 65 - [address] [facility] mg/dL [facility]ORY Comment: Diabetes: >=200 mg/dL plus symp toms BUN 36 (H) 8 - 18 mg/dL [facility] Creatinine 2.71 (H) 0.70 - 1.20 mg/dL [facility]ORY Sodium 134 (L) 135 - 145 mmol/L [facility] Potassium 4.8 3.5 - 5.0 mmol/L [facility] Comment: Please note: ??Patients with WBC >100,00 0 may have falsely elevated Potassium levels. ??For accurate Potassium quantif ication in these patients send serum separator tube (gold top) for subsequent determinations. ??Contact the Clinical Chemistry Laboratory if there are any qu estions. Chloride 98 98 - 107 mmol/L [facility] CO2 20 (L) 22 - 31 mmol/L [facility] Anion Gap 16 (H) 5 - 15 mmol/L [facility] Calcium 8.5 8.5 - 10.5 mg/dL [facility] Estimated GFR 17 (L) >=60 mL/min/1.73 m?? [facility] Comment: The eGFR was calculated using the CKD-EP I equation. As with all creatinine based estimates of kidney function, eGFR values calculated with the CKD-EPI equation are not accurate in patients wi th acute kidney failure, extremes of body mass or the acutely ill. [email or web address] CITYnkf eGFR 20 (L) >=60 mL/min/1.73 m?? [facility] Comment: The eGFR was calculated using the CKD-EP I equation. As with all creatinine based estimates of kidney function, eGFR values calculated with the CKD-EPI equation are not accurate in patients wi th acute kidney failure, extremes of body mass or the acutely ill. [email or web address] CITYnkf Specimen Anatomical Collection Method Collection Time Receive d Time (Source) Location / / Volume Laterality Blood specimen 09/02/2018 3:29 AM 019 3:33 (specimen) EDT AM EDT Resulting Agency Comment Spec In Lab Liliana Echeverria MD CHEMISTRY ORDERABLES Performing Organization Address City/State/[place] [address] EKG 12 Lead (09/02/2018 12:58 AM EDT) Component Value Ref Range Test Analysis Performed Pathologis t Method Time At Signature Ventricular rate 70 BPM MUSE SYSTEM Atrial Rate 70 BPM MUSE SYSTEM P-R Interval 146 ms MUSE SYSTEM QRS Duration 84 ms MUSE SYSTEM Q-T Interval 430 ms MUSE SYSTEM QTC Calculated 464 ms MUSE SYSTEM (Bezet) Calculated P Elaine 46 degrees MUSE SYSTEM Calculated R Elaine 20 degrees MUSE SYSTEM Calculated T Elaine 30 degrees MUSE SYSTEM INTERPRETATION Normal sinus [...] Mantilla APRN ECG ORDERABLES Performing Organization Address City/State/ZIP Code Phon e Number MUSE SYSTEM XR Chest [...] Time Received Time / Laterality Volume Narrative [facility] - 09/01/2018 4:34 PM EDT This exam is auto-finalizing. It's purpo se is for storage only. Greyson Chen MD IMG FILM LIBRARY ORDERABLES Performing Organization Address City/State/ZIP Code Phon e Number [place] Magnesium (09/01/2018 12:20 AM EDT) athologist Signature Magnesium 0.86 0.69 - 1.[address] [facility] mmol/L [facility] LABORATORY Specimen Anatomical Collection Method Collection Time Receive d Time (Source) Location / / Volume Laterality Blood specimen 09/01/2018 12:20 9 (specimen) AM EDT 12:32 AM EDT Resulting Agency Comment Spec In Lab Ren Hoffmann MD CHEMISTRY ORDERABLES Performing Organization Address City/State/ZIP [facility] [place] [address] (ABNORMAL) Hemogram (09/01/2018 12:20 AM EDT) Analysis Performed At Patho logist Time Signature WBC 6.7 4.0 - 9.[address] [facility] x10(3)/[facility] LABORATORY RBC 3.79 (L) 4.00 - [facility] 5.21 [facility] x10(6)/[facility] LABORATORY Hemoglobin 11.5 (L) 11.7 - [facility] 15.5 gm/dL [facility] LABORATORY Hematocrit 32.9 (L) 35.7 - [facility] 45.8 % [facility] LABORATORY MCV 86.8 82.6 - [facility] 94.4 [facility] LABORATORY MCH 30.3 27.1 - [place] [facility] 32.0 pg [facility] LABORATORY MCHC 35.0 31.7 - [facility] 35.0 gm/dL [facility] LABORATORY Platelets 220 145 - [address] [facility] x10(3)/[facility] LABORATORY RDWSD 41.0 37.0 - [facility] 46.0 [facility] LABORATORY RDWCV 12.9 11.5 - [facility] 14.1 % [facility] LABORATORY MPV 11.0 7.6 - 12.9 [facility] LABORATORY nRBC % Auto 0.0 % [facility] nRBC Abs Auto 0.000 0.[address] - [facility] 0.000 [facility] x10(3)/[facility] LABORATORY Specimen Anatomical Collection Method Collection Time Receive d Time (Source) Location / / Volume Laterality Blood specimen 09/01/2018 12:20 9 (specimen) AM EDT 12:32 AM EDT Resulting Agency Comment Spec In Lab Ren Hoffmann MD HEMATOLOGY ORDERABLES Performing Organization Address City/State/[place] [address] (ABNORMAL) Basic Metabolic Panel (non-fasting) (09/01/2018 12:20 AM EDT) P athologist Signature Glucose Lvl 117 65 - [address] [facility] mg/dL [facility] Comment: Diabetes: >=200 mg/dL plus symp toms BUN 24 (H) 8 - 18 mg/dL [facility] Creatinine 2.17 (H) 0.70 - 1.20 mg/dL [facility] Sodium 134 (L) 135 - 145 mmol/L [facility] Potassium 4.1 3.5 - 5.0 mmol/L [facility] Comment: Please note: ??Patients with WBC >100,00 0 may have falsely elevated Potassium levels. ??For accurate Potassium quantif ication in these patients send serum separator tube (gold top) for subsequent determinations. ??Contact the Clinical Chemistry Laboratory if there are any qu estions. Chloride 99 98 - 107 mmol/L [facility] CO2 23 22 - 31 mmol/L [facility] Anion Gap 12 5 - 15 mmol/L [facility] Calcium 7.8 (L) 8.5 - 10.5 mg/dL [facility] Estimated GFR 23 (L) >=60 mL/min/1.73 m?? [facility] Comment: The eGFR was calculated using the CKD-EP I equation. As with all creatinine based estimates of kidney function, eGFR values calculated with the CKD-EPI equation are not accurate in patients wi th acute kidney failure, extremes of body mass or the acutely ill. [email or web address] CITYnkf eGFR 26 (L) >=60 mL/min/1.73 m?? [facility] Comment: The eGFR was calculated using the CKD-EP I equation. As with all creatinine based estimates of kidney function, eGFR values calculated with the CKD-EPI equation are not accurate in patients wi th acute kidney failure, extremes of body mass or the acutely ill. [email or web address] CITYnkf Specimen Anatomical Collection Method Collection Time Receive d Time (Source) Location / / Volume Laterality Blood specimen 09/01/2018 12:20 9 (specimen) AM EDT 12:32 AM EDT Resulting Agency Comment Spec In Lab Ren Hoffmann MD CHEMISTRY ORDERABLES Performing Organization Address City/State/[place] [address] (ABNORMAL) Hemogram (08/31/2018 12:15 AM EDT) Analysis Performed At Patho logist Time Signature WBC 8.1 4.0 - 9.[address] [facility] x10(3)/[facility] LABORATORY RBC 4.02 4.00 - [facility] 5.21 [facility] x10(6)/[facility] LABORATORY Hemoglobin 12.1 11.7 - [facility] 15.5 gm/dL [facility] LABORATORY Hematocrit 34.6 (L) 35.7 - [facility] 45.8 % [facility] LABORATORY MCV 86.1 82.6 - [facility] 94.4 [facility] LABORATORY MCH 30.1 27.1 - [facility] 32.0 pg [facility] LABORATORY MCHC 35.0 31.7 - [facility] 35.0 gm/dL [facility] LABORATORY Platelets 235 145 - [address] [facility] x10(3)/[facility] LABORATORY RDWSD 40.6 37.[address] [facility] 46.0 [facility] LABORATORY RDWCV 13.0 11.5 - [facility] 14.1 % [facility] LABORATORY MPV 10.9 7.6 - 12.9 [facility] LABORATORY nRBC % Auto 0.0 % [facility] LABOR[facility]ORY nRBC Abs Auto 0.000 0.[address] - [facility] 0.000 [facility] x10(3)/[facility] LABORATORY Specimen Anatomical Collection Method Collection Time Receive d Time (Source) Location / / Volume Laterality Blood specimen 08/31/2018 12:15 9 (specimen) AM EDT 12:18 AM EDT Resulting Agency Comment Spec In Lab Ren Hoffmann MD HEMATOLOGY ORDERABLES Performing Organization Address City/State/[place] [address] Phosphorus (08/31/2018 12:15 AM EDT) P athologist Signature Phosphorus 3.5 2.5 - 4.[address] [facility] mg/dL [facility]ORY Specimen Anatomical Collection Method Collection Time Receive d Time (Source) Location / / Volume Laterality Blood specimen 08/31/2018 12:15 9 (specimen) AM EDT 12:18 AM EDT Resulting Agency Comment Spec In Lab Ren Hoffmann MD CHEMISTRY ORDERABLES Performing Organization Address City/[facility]/ZIP Code Phon e Number [address] Magnesium (08/31/2018 12:15 AM EDT) athologist Signature Magnesium 0.75 0.69 - 1.[address] [facility] mmol/L [facility]ORATORY Specimen Anatomical Collection Method Collection Time Receive d Time (Source) Location / / Volume Laterality Blood specimen 08/31/2018 12:15 9 (specimen) AM EDT 12:18 AM EDT Resulting Agency Comment Spec In Lab Ren Hoffmann MD CHEMISTRY ORDERABLES Performing Organization Address City/[facility] Code Phon e Number [address] (ABNORMAL) Basic Metabolic Panel (non-fasting) (08/31/2018 12:15 AM EDT) athologist Signature Glucose Lvl 128 65 - [address] [facility] mg/dL [facility]ORY Comment: Diabetes: >=200 mg/dL plus symp toms BUN 21 (H) 8 - 18 mg/dL [facility] Creatinine 1.93 (H) 0.70 - 1.20 mg/dL [facility] Sodium 135 135 - 145 mmol/L [facility] Potassium 3.9 3.5 - 5.0 mmol/L [facility] Comment: Please note: ??Patients with WBC >100,00 0 may have falsely elevated Potassium levels. ??For accurate Potassium quantif ication in these patients send serum separator tube (gold top) for subsequent determinations. ??Contact the Clinical Chemistry Laboratory if there are any qu estions. Chloride 98 98 - 107 mmol/L [facility] CO2 23 22 - 31 mmol/L [facility] Anion Gap 14 5 - 15 mmol/L [facility] Calcium 7.9 (L) 8.5 - 10.5 mg/dL [facility] Estimated GFR 26 (L) >=60 mL/min/1.73 m?? [facility] Comment: The eGFR was calculated using the CKD-EP I equation. As with all creatinine based estimates of kidney function, eGFR values calculated with the CKD-EPI equation are not accurate in patients wi th acute kidney failure, extremes of body mass or the acutely ill. [email or web address] CITYnkf eGFR 30 (L) >=60 mL/min/1.73 m?? [facility] Comment: The eGFR was calculated using the CKD-EP I equation. As with all creatinine based estimates of kidney function, eGFR values calculated with the CKD-EPI equation are not accurate in patients wi th acute kidney failure, extremes of body mass or the acutely ill. [email or web address] CITYnkf Specimen Anatomical Collection Method Collection Time Receive d Time (Source) Location / / Volume Laterality Blood specimen 08/31/2018 12:15 9 (specimen) AM EDT 12:18 AM EDT Resulting Agency Comment Spec In Lab Ren Hoffmann MD CHEMISTRY ORDERABLES Performing Organization Address City/State/[place] [address] Duplex Study Renal Arteries, Bilat (08/30/2018 7:39 PM EDT) Component Value Ref Test Analysis Performed At [facility] Range Method Time Signature VB Text Department: Vascular Surgery Lab VASCUBASE Report Patient: [id number] (PRETTY HARMON) CPT: 95674 ICD10: I70.1 Referring Physician: LILIANA ECHEVERRIA ?? [...] B ? (Age): 1950(67y) Med Rec#: ? [id number] ?Sex: ?F ? Site Loc: ? [facility] ?Ht / Wt: ??155(cm)/47(kg) Pt. Loc: ?ICU ? BSA: ?1.43 Study Date: ?? 08/30/2018 ?Pt. Type: Outpatient Tape: ? Referring: KIRT Reading: Quinten Nance ([id number]) Senior Health Consultant: Unique Guzman MS, [facility] Diagnosis: *Acute combined systolic (congestive) a [...] E-wave Vmax ?1.4 ?m/sec ? MV deceleration azyn130 ?msec ? MV A-wave Vmax ?1.2 ?m/sec [...] ? Mid-Inferior ?Normal ? Mid-Inferoseptal ?Normal ? [place]-Septal ? Normal ? [place]-Anterior ? Normal ? [place]-Lateral ?Normal ? [place]-Inferior ? Normal ? [place]-Tip ?Normal ? This report has been electronically sign ed by: _ Quinten Nance M.D. ? 08/30/2018 12:04:09 Images reviewed and interpretation camryn [facility] Cardiac Ultrasound Laboratory Procedure Note Quinten Nance MD - 08/30/2018Format ting of this note might be different from the original. Procedure: Transthoracic Echocardiogram Patient: TERELL Eckert (Age): [birth year] 9(67y) Med Rec#: [id number] Sex: F Site Loc: [facility] Ht / Wt: 155(cm)/47(kg) Pt. Loc: ICU BSA: 1.43 Study Date: 08/30/2018 Pt. Type: Outpati ent Tape: Referring: KIRT Reading: Quinten Nance ([id number]) Senior Health Consultant: Unique Guzman MS, [facility] Diagnosis: *Acute combined systolic (congestive) a [...] MV E-wave Vmax 1.4 m/sec MV deceleration [id number] msec MV A-wave Vmax 1.2 m/sec MV [...] Normal Mid-Posterolateral Normal Mid-Inferior Normal Mid-Inferoseptal Normal [place]-Septal Normal [place]-Anterior Normal [place]-Lateral Normal [place]-Inferior Normal [place]-Tip Normal This report has been electronically sign ed by: _ Quinten Nance M.D. 08/30/2018 12:04: 09 Images reviewed and interpretation [facility] Cardiac Ultrasound Laboratory Liliana Echeverria MD ECHO ORDERABLES Magnesium (08/30/2018 8:00 AM EDT) athologist Signature Magnesium 0.80 0.69 - 1.[address] [facility] mmol/L [facility] LABORATORY Specimen Anatomical Collection Method Collection Time Receive d Time (Source) Location / / Volume Laterality Blood specimen 08/30/2018 8:00 AM 019 8:09 (specimen) EDT AM EDT Resulting Agency Comment Spec In Lab Ren Hoffmann MD CHEMISTRY ORDERABLES Performing Organization Address City/State/[place] [address] (ABNORMAL) Basic Metabolic Panel (non-fasting) (08/30/2018 8:00 AM EDT) athologist Signature Glucose Lvl 100 65 - [address] [facility] mg/dL [facility]ORATORY Comment: Diabetes: >=200 mg/dL plus symp toms BUN 22 (H) 8 - 18 mg/dL [facility]OR[facility]ORY Creatinine 1.88 (H) 0.70 - 1.20 mg/dL [facility] LABOR[facility]ORY Sodium 138 135 - 145 mmol/L [facility] Potassium 3.6 3.5 - 5.0 mmol/L [facility] Comment: Please note: ??Patients with WBC >100,00 0 may have falsely elevated Potassium levels. ??For accurate Potassium quantif ication in these patients send serum separator tube (gold top) for subsequent determinations. ??Contact the Clinical Chemistry Laboratory if there are any qu estions. Chloride 103 98 - 107 mmol/L [facility] CO2 24 22 - 31 mmol/L [facility] Anion Gap 11 5 - 15 mmol/L [facility]ORY Calcium 8.4 (L) 8.5 - 10.5 mg/dL [facility] Estimated GFR 27 (L) >=60 mL/min/1.73 m?? [facility] Comment: The eGFR was calculated using the CKD-EP I equation. As with all creatinine based estimates of kidney function, eGFR values calculated with the CKD-EPI equation are not accurate in patients wi th acute kidney failure, extremes of body mass or the acutely ill. [email or web address] CITYnkf eGFR 31 (L) >=60 mL/min/1.73 m?? [facility] Comment: The eGFR was calculated using the CKD-EP I equation. As with all creatinine based estimates of kidney function, eGFR values calculated with the CKD-EPI equation are not accurate in patients wi th acute kidney failure, extremes of body mass or the acutely ill. [email or web address].to/[email or web address] OKLAH[facility] CITYnkf Specimen Anatomical Collection Method Collection Time Receive d Time (Source) Location / / Volume Laterality Blood specimen 08/30/2018 8:00 AM 019 8:09 (specimen) EDT AM EDT Resulting Agency Comment Spec In Lab Ren Hoffmann MD CHEMISTRY ORDERABLES Performing Organization Address City/State/[place] [address] EKG 12 Lead (08/29/2018 9:01 PM EDT) Component Value Ref Range Test Analysis Performed Pathologis t Method Time At Signature Ventricular rate 85 BPM MUSE SYSTEM Atrial Rate 85 BPM MUSE SYSTEM P-R Interval 148 ms MUSE SYSTEM QRS Duration 84 ms MUSE SYSTEM Q-T Interval 400 ms MUSE SYSTEM QTC Calculated 476 ms MUSE SYSTEM (Bezet) Calculated P Elaine 58 degrees MUSE SYSTEM Calculated R Elaine 34 degrees MUSE SYSTEM Calculated T Elaine 71 degrees MUSE SYSTEM INTERPRETATION Normal sinus [...] Echeverria MD ECG ORDERABLES Performing Organization Address City/[facility] Code Phon e Number MUSE SYSTEM CK (08/29/2018 8:43 PM EDT) athologist [facility] CK, Total 61 0 - [address] [facility] unit/L [facility] LABORATORY Specimen Anatomical Collection Method Collection Time Receive d Time (Source) Location / / Volume Laterality Blood specimen Venous Draw / 08/29/2018 8:43 PM 2018 8:50 (specimen) Unknown EDT PM EDT Resulting Agency Comment Spec In Lab Liliana Echeverria MD CHEMISTRY ORDERABLES Performing Organization Address City/[facility] [place] [address] Troponin (08/29/2018 8:43 PM EDT) athologist [facility] Troponin-T <0.01 0.00 - 0.[address] [facility] ng/mL [facility] LABORATORY Comment: The 99th percentile for Troponin T is le ss than 0.01 ng/mL, any detectable cTnT concentration using this assay should be considered elevated. According to the third universal definit ion of myocardial infarction the following criteria with a clinical prese ntation consistent with acute myocardial ischemia meets the diagnosis for a myocardial infarction (SC). Detection of a rise and/or fall of [...] additional sample may be indicated. Reference: Third Bowlus Definition of Myocardial Infarction. Journal of the [place] [employer] 2012;60:1581-98 Specimen Anatomical Collection Method Collection Time Receive d Time (Source) Location / / Volume Laterality Blood specimen Venous Draw / 08/29/2018 8:43 PM 2018 8:50 (specimen) Unknown EDT PM EDT Resulting Agency Comment Spec In Lab Liliana Echeverria MD CHEMISTRY ORDERABLES Performing Organization Address City/State/[place] [address] (ABNORMAL) Differential, Automated (08/29/2018 8:43 PM EDT) [facility] gist Method Time Signature Neutrophils % 61.3 % [facility] LABORATORY Neutr Abs (ANC) 5.36 1.70 - [facility] 6.10 [facility] x10(3)/[facility] LABORATORY Lymphocytes % 18.9 % [facility] LABORATORY Lymphocytes Abs 1.7 0.9 - 3.[address] [facility] x10(3)/[facility] LABORATORY Monocytes % 11.7 % [facility] LABORATORY Monocyte Abs 1.0 (H) 0.3 - 0.[address] [facility] x10(3)/[facility] LABORATORY Eosinophils % 6.8 % [facility] LABORATORY Eosinophils Abs 0.6 (H) 0.0 - 0.[address] [facility] x10(3)/[facility] LABORATORY Basophils % 1.1 % [facility] LABORATORY Basophils Abs 0.1 0.0 - 0.[address] [facility] x10(3)/[facility] LABORATORY Immature Gran % 0.20 % [facility] LABORATORY Comment: Immature granulocytes(IG's)percentage an d absolute count will include metamyelocytes, myelocytes, and promyelo cytes. Blood smears from CBCs yielding IG's will be scanned manually for concor dance. If this scan disagrees with the automated IG or if promyelocytes are not ed, a manual differential will be performed. Blanca Gran Abs 0.02 0.00 - 0.04 x10(3)/[facility] MAR Y [facility] LABORATORY Specimen Anatomical Collection Method Collection Time Receive d Time (Source) Location / / Volume Laterality Blood specimen 08/29/2018 8:43 PM 019 8:50 (specimen) EDT PM EDT Resulting Agency Comment Spec In Lab Liliana Echeverria MD HEMATOLOGY ORDERABLES Performing Organization Address City/State/[place] [address] (ABNORMAL) Hemogram (08/29/2018 8:43 PM EDT) Analysis Performed At Patho logist Time Signature WBC 8.8 4.0 - 9.[address] [facility] x10(3)/[facility] LABORATORY RBC 4.06 4.[address] - [facility] 5.21 [facility] x10(6)/[facility] LABORATORY Hemoglobin 12.5 11.7 - [facility] 15.[facility] gm/dL [facility] LABORATORY Hematocrit 35.6 (L) 35.7 - [facility] 45.8 % [facility] LABORATORY MCV 87.7 82.6 - [facility] LABORATORY MCH 30.8 27.1 - [facility] 32.0 pg [facility] LABORATORY MCHC 35.1 (H) 31.7 - [facility] 35.0 gm/dL [facility] LABORATORY Platelets 235 145 - [address] [facility] x10(3)/[facility] LABORATORY RDWSD 41.7 37.0 - [facility] 46.0 [facility] LABORATORY RDWCV 13.1 11.5 - [facility] 14.1 % [facility] LABORATORY MPV 10.4 7.6 - 12.9 [facility] LABORATORY nRBC % Auto 0.0 % [facility] LABORATORY nRBC Abs Auto 0.000 0.000 - [facility] 0.000 [facility] x10(3)/[facility] LABORATORY Specimen Anatomical Collection Method Collection Time Receive d Time (Source) Location / / Volume Laterality Blood specimen 08/29/2018 8:43 PM 019 8:50 (specimen) EDT PM EDT Resulting Agency Comment Spec In Lab Liliana Echeverria MD HEMATOLOGY ORDERABLES Performing Organization Address [facility] Phon e Number [address] Prothrombin Time (08/29/2018 8:43 PM EDT) P athologist Signature PT 12.2 9.4 - 12.5 [facility] LABORATORY INR 1.1 [facility] LABORATORY Comment: An INR <2.0 indicates [...] Echeverria MD HEMATOLOGY ORDERABLES Performing Organization Address [facility] [place] [address] Magnesium (08/29/2018 8:43 PM EDT) P athologist Signature Magnesium 0.74 0.69 - 1.[address] [facility] mmol/L [facility] LABORATORY Specimen Anatomical Collection Method Collection Time Receive d Time (Source) Location / / Volume Laterality Blood specimen 08/29/2018 8:43 PM 019 8:50 (specimen) EDT PM EDT Resulting Agency Comment Spec In Lab Liliana Echeverria MD CHEMISTRY ORDERABLES Performing Organization Address [facility]/[place] [address] (ABNORMAL) Basic Metabolic Panel (non-fasting) (08/29/2018 8:43 PM EDT) athologist Signature Glucose Lvl 193 65 - [address] [facility] mg/dL [facility] LABORATORY Comment: Diabetes: >=200 mg/dL plus symp toms BUN 22 (H) 8 - 18 mg/dL [facility] LABORATORY Creatinine 1.80 (H) 0.70 - 1.20 mg/dL [facility] LABORATORY Sodium 134 (L) 135 - 145 mmol/L [facility] LABORATORY Potassium 3.3 (L) 3.5 - 5.0 mmol/L [facility] LABORATORY Comment: Please note: ??Patients with WBC >100,00 0 may have falsely elevated Potassium levels. ??For accurate Potassium quantif ication in these patients send serum separator tube (gold top) for subsequent determinations. ??Contact the Clinical Chemistry Laboratory if there are any qu estions. Chloride 101 98 - 107 mmol/L [facility] LABORATORY CO2 22 22 - 31 mmol/L [facility] LABORATORY Anion Gap 11 5 - 15 mmol/L [facility] LABORATORY Calcium 8.3 (L) 8.5 - 10.5 mg/dL [facility] LABORATORY Estimated GFR 28 (L) >=60 mL/min/1.73 m?? [facility] LABOR[facility]ORY Comment: The eGFR was calculated using the CKD-EP I equation. As with all creatinine based estimates of kidney function, eGFR values calculated with the CKD-EPI equation are not accurate in patients wi th acute kidney failure, extremes of body mass or the acutely ill. [email or web address]/[facility]nkf eGFR 33 (L) >=60 mL/min/1.73 m?? [facility] LABORATORY Comment: The eGFR was calculated using the CKD-EP I equation. As with all creatinine based estimates of kidney function, eGFR values calculated with the CKD-EPI equation are not accurate in patients wi th acute kidney failure, extremes of body mass or the acutely ill. [email or web address]/[email or web address] Specimen Anatomical Collection Method Collection Time Receive d Time (Source) Location / / Volume Laterality Blood specimen 08/29/2018 8:43 PM 019 8:50 (specimen) EDT PM EDT Resulting Agency Comment Spec In Lab Liliana Echeverria MD CHEMISTRY ORDERABLES Performing Organization Address City/[facility]/[place] [address] POCT Glucose (08/29/2018 6:31 PM EDT) athologist Signature POC Glucose 115 65 - [address] [facility] mg/dL [facility] LABORATORY Comment: Supplemental ranges: <140 mg/dL before meals <180 mg/dL all other times of the day Specimen Anatomical Collection Method Collection Time Receive d Time (Source) Location / / Volume Laterality Blood specimen 08/29/2018 6:31 PM 019 6:31 (specimen) EDT PM EDT Liliana Echeverria MD POINT OF CARE TEST ORDERABLE S Performing Organization Address City/[facility]/[place] [address] documented in this encounter Visit Diagnoses Not on filedocumented in this encounter Admitting Diagnoses Diagnosis Hypertensive urgency Unspecified essential hypertension documented in this encounter Administered Medications Inactive Administered Medications - up to 3 most recent administrations Medication Order MAR Action Action Date Dose Rate Site acetaminophen (TYLENOL) tablet Given 09/14/2018 12:08 PM EDT 500 mg 500 mg 500 mg, Oral, EVERY 6 HOURS SCHEDULED, First dose on 09/13/18 at 0000, Until Discontinued, [...] Given 09/12/2018 8:10 AM EDT 81 mg bisacodyl (DULCOLAX) suppository 10 mg Given [...] Given 09/07/2018 12:40 AM EDT 500 mg gelatin adsorbable 100 Given 09/07/2018 3:10 PM EDT 1 each 19- Surgical Site (GELFOAM) sponge ONCE PRN, Starting on Thu09/07/18 at 1510, Until Thu09/14/18 at 1740, Intra-Operative (Intra-Procedure), Routine heparin (Porcine) subcutaneous injection Given 019 9:00 AM EDT 5,000 Units 5,000 Units 5,000 Units, Subcutaneous, EVERY 12 HOURS SCHEDULED (2 times per day), First dose (after last reorder) on Thu09/08/18 at 0900, Until Discontinued, Routine Given 09/13/2018 8:59 PM EDT 5,000 Units Abdom inal Tissue Given 09/13/2018 9:50 AM EDT 5,000 Units HYDROmorphone (DILAUDID) injection 0.4 m g Given 09/12/2018 7:58 AM EDT 0.4 mg 0.4 mg, Intravenous, EVERY 1 HOUR PRN, Starting on Thu09/07/18 at 2028, Until Thu09/14/18 at 1740, Pain, Routine Given 09/11/2018 10:14 PM EDT 0.4 mg Cent ral Line Given 09/11/2018 12:26 PM EDT 0.4 mg ipratropium-albuterol (DUONEB) 0.5 mg-3 mg(2.5 mg base)/3 [...] Given 09/13/2018 9:49 AM EDT 200 mg lidocaine (LIDODERM) 5 Patch Applied 09/12/2018 10:20 [...] Discontinued, Remove lidocaine 5 %(700 mg/patch) patch NIFEdipine (ADALAT CC) CR tablet 30 mg Given 09/14/2018 10:26 AM EDT 30 mg 30 mg, Oral, 2 TIMES DAILY, First dose on Thu09/11/18 at 1215, Until Discontinued, DO NOT CRUSH OR OPEN, Routine Given 09/13/2018 8:58 PM EDT 30 mg Given 09/13/2018 10:39 AM EDT 30 mg ondansetron (ZOFRAN) injection 4 mg 4 mg, [...] Given 09/10/2018 10:39 PM EDT 17 g senna-docusate (PERICOLACE) 8.6-50 mg per Given 2018 [...] Given 09/13/2018 9:51 AM EDT 5 mLs thrombin (Bovine) Given 09/07/2018 3:09 PM 20,000 Units 19- Surgical Site (THROMBINAR) kit EDT ONCE PRN, Starting on Thu09/07/18 at 1509, Until Thu09/14/18 at 1740, Intra-Operative (Intra-Procedure) documented in this encounter Active and Recently Administered Medications Times are shown in EDT. Scheduled Medication Order 09/12/2018 09/13/2018 09/14/2018 acetaminophen (TYLENOL) tablet 500 mg 6214 (Given - Pr ovider: Candida Harley RN) 0551 (Given - Provider: Candida melendez RN)1318 (Given - Provider: Kacie Bills RN)1858 (Given - Provider: Kacie Bills RN)2318 (Given - Provider: Gianna Horn, [place]WR[place]) 0544 (Given - Provider: Gianna Horn, [place]WR[place])1208 (Given - Provider: Katy Sterling RN) 500 mg, Oral, EVERY 6 HOURS SCHEDULED, F irst dose on Thu09/13/18 at 0000, Until Discontinued, Maximum dose of acetaminophen is 4000 mg from all sources in 24 hours., Routine aspirin chewable tablet 81 mg 0810 (Given - Provider: Jeana Birmingham RN) 0949 (Given - Provider: Kacie Bills RN) 0900 (Given - Provider: Katy Sterling RN) 81 mg, Oral, DAILY, First dose on Thu at 0900, Until Discontinued, Routine bisacodyl (DULCOLAX) [...] Kacie Bills RN)2056 (Given - Provider: Gianna Horn, [place]) 0909 (Given - Provider: Katy Sterling RN) 200 mg, Oral, 2 TIMES DAILY, First dose on Thu09/11/18 at 1200, Until Discontinued, Routine lidocaine (LIDODERM) 5 % patch 3 patch(Linked Group 1) 2219 (Patch Applied - Provider: Candida Harley RN) 2144 (Not Given - Provider: Gianna Horn RN - Reason: Patient/family refused) 3 patch, Transdermal, [...] Jeana Birmingham RN)2219 (Given - Provider: Candida Harley, [place]) 1039 (Given - Provider: Valery Mo, [place])2058 (Given - Provider: Gianna Horn, [place]) 1026 (Given - Provider: Grace Phillip, [place]) 30 mg, Oral, 2 TIMES DAILY, First dose o n 09/11/18 at 1215, Until Discontinued, DO NOT CRUSH OR OPEN, Routine pantoprazole (PROTONIX) injection 40 mg 0812 (Given - Provider: Jeana Birmingham, [place]WR[place]) 0950 (Given - Provider: Kacie Bills, [place]) 0900 (Gi ward - Provider: Katy Sterling RN) 40 mg, Intravenous, DAILY, First dose on Thu09/08/18 at 1115, Until Discontinued polyethylene glycol (MIRALAX) packet 17 g 0809 (Given - Provider: Jeana Birmingham RN) 0900 (Not Given - Provider: Kacie rojas RN - Reason: Patient/family refused) 0900 (Not Given - Provider: Katy finley RN - Reason: Patient/family refused) 17 g, Oral, DAILY, First dose on 08/25 at 2115, Until Discontinued, Routine potassium chloride (K-DUR/KLOR-CON) extended release tablet 40 mEq (COMPLETED) 0949 (Given - Provider: Kacie Bills RN)131 (Given [...] sodium chloride 0.9 % flush 5 mL 0812 (Given - Provide r: Jeana Birmingham RN)2037 (Given - Provider: Geeta Beltran RN) 0951 (Given - Provider: Kacie Bills RN)2100 (Given - Provider: Gianna Horn RN) 0901 (Given - Provider: Katy Sterling RN) 5 mL, Intravenous, 2 TIMES DAILY, First dose on Thu08/29/18 at 2100, Until Discontinued, Routine PRN Medication Order 09/12/2018 09/13/2018 09/14/2018 calcium carbonate (Tums) chewable tablet 500 mg 0642 ( Given - Provider: Patrizia Peng RN) 500 mg, Oral, 3 TIMES [...] mL), Subcutaneous, ONCE PRN, 1 dose, Starting 08/29/18 at 1939, Until Thu09/14/18 at 1740, for [...] mg, Oral, EVERY 4 HOURS PRN, Starting 09/13/18 at 0658, Until Thu09/14/18 at 1740, Pain, Routine potassium chloride (K-DUR/KLOR-CON) extended release t ablet 40 mEq (CANCELED) 0306 (Given - Provider: Patrizia Peng RN) 40 mEq, Oral, EVERY 4 HOURS PRN, Startin g 09/06/18 at 1105, Until Thu09/13/18 at 0820, hypokalemia, [...] patch
documented in this encounter Care Teams Press Machine Operator Relationship Specialty Start Date End Date Sanjuanita Lee MD PCP - General 03/05/13 12/23/[address] [place] [address] documented as of this encounter
--- OUTSIDE RECORDS SUMMARY | 2022-02-22 23:37 | XMS_ITS | Encounter Summary ---
:1950 Author Organization [facility] [place] [address] Care Team Providers Name Role Phone Sanjuanita Lee MD Primary Care Provider Encounter Details Date Type Department Care Team Description 09/01/2018 Ancillary [place] [address] Social History Tobacco Use Types Packs/Day Years Used Date Former Smoker 0.5 Smokeless Tobacco: Former User Q uit: 07/14/2012 Alcohol Use Standard Drinks/Week Comments Yes 0 [...] Diagnosis Comme nts IR OR VASC Routine 09/01/2018 4:35 PM Results f or this ANGIOGRAM IMAGE EDT [...] purpo se is for storage only. Regan Chen MD IMG FILM LIBRARY ORDERABLES Performing Organization Address City/State/ZIP Code Phon e Number RAD [place], [place] documented in this encounter Visit Diagnoses Not on filedocumented in this encounter Care Teams C4 Planner Relationship Specialty Start Date End Date Sanjuanita Lee MD PCP - General 03/05/13 12/23/[address] [place] [address] documented as of this encounter
--- OUTSIDE RECORDS SUMMARY | 2022-02-22 23:37 | XMS_ITS | Encounter Summary ---
:1950 [place] [address] Care Team Providers Name Role Phone Sanjuanita Lee MD Primary Care Provider Reason for Visit Auth/Cert Specialty Diagnoses / Procedures Referred By Contact Refer red To Contact Diagnoses Hypertensive urgency RENAL ARTERY STENOSIS Procedures EMERGENCY IPI Referral ID Status Reason Start Date Expiration Date Visits Requ ested Visits Authorized [id number] 1 1 Encounter Details Date Type Department Care Team Description 09/01/2018 Anesthesia Event Main Operating Room Lars Reich nd, MD [facility] [place] [address] [facility] Dwayne Brownlee CRNA [facility] [place] [address] [facility] [place] [address] Anesthesia Record Procedure Summary Procedure Name Responsible Anesthesia Start Anesthesia Stop Time Anesthesiologist Time SELECT CATH PLACE Lars Mojica MD 09/01/18 1511 09/01/18 1701 (FIRST-ORDER), MAIN RENAL ART & ANY ACC, W/S&I; ANDREY (WRVU 6.99) (Bilateral Groin) Events Date Time Event Comment 09/01/2018 1437 1511 AN Verify 1511 Start 1511 An Start Data 1522 Anesthesia Ready 1537 Procedure Start 1647 an stop data 1700 Recovery or ICU Handoff Patient care was transferred to the destination unit staff after review of the patient's medica l history, current anesthetic/surgi lucio status and plan, according to the Provider Handoff Checklist. 1701 Stop Name Total Propofol 30 mg Propofol INF 298.62 mg niCARdipine 0.2 mg/mL (standard Adult and Pedi greater than 20 kg) 9.08 mg infusion Dexmedetomidine 8 mcg Dexmedetomidine INF 38.39 mcg ceFAZolin 1 g Heparin 4,000 Units Protamine 25 mg Dexamethasone 4 mg Lactated Ringers 200 mL Agents Name O2 Air N2O Sevoflurane (et) O2 Auxiliary Flowmeter 1 Blood No blood administrations on file. Lines, Drains, and Airways Type Details Placement Removal PIV 08/29/18; 1838; cephalic 08/29/18 1838 by 1205 by vein (lateral side of arm), Eneida Gomez RN Gilliland, Alison D, RN left; 20 gauge; below area's of phlebitis. iv removed for precaution; catheter/device intact, site symptomatic, site care per policy/procedure, removed per policy/procedure; 09/06/18; 1205 Incision 09/01/18; 1535; groin; other 09/01/18 1535 by ase, 10/01/21 1039 by (see comments); percutaneous LAWRENCE Luna Cha, Emma M, RN puncture; LDA not present upon assessment; 10/01/21; 1039 documented in this encounter Social [...] encounter OR Notes Anesthesia Postprocedure Evaluation - Lexus Paul MD - 09/01/2018 5:11 PM EDT [facility] Department of Anesthesiology Post-procedure Note Patient: Charlene Harmon Procedure Summary Date: 09/01/18 Room / Location: [address] MAIN OR Anesthesia Start: 1510 Anesthesia Stop: 170 Procedure: SELECT CATH PLACE (FIRST-ORDER), MAIN RENAL ART & ANY ACC, W/S&I; ANDREY (WRVU 6.99) (Bilateral Groin) Diagnosis: (B renal stenosis) Surgeon: Regan Chen MD Responsible Provider: Lars Mojica MD Anesthesia Type: general ASA Status: 3 All Anesthesia Providers: Anesthesiologist: Lars Mojica MD Supervisor Pullet Farm: Lexus Paul MD Vitals Value Taken Time BP 122/59 09/01/2018 5:00 PM Temp 37.6 ??C (99.7 ??F) 09/01/2018 4:54 PM Pulse 68 09/01/2018 5:10 PM Resp 11 09/01/2018 5:10 PM SpO2 92 % 09/01/2018 5:10 PM Pain Level Vitals shown include unvalidated device data. Patient Location: PACU/[facility] Level of Consciousness: Awake and Alert Pain Management: Satisfactory Analgesia PONV: None Cardiovascular Status: Hypertension (received treatment) Respiratory Status: Supplemental O2 (NC or FM) and Stable Respiratory Status Postoperative Fluid Status: Intravascular EUvolemia Possible Anesthetic Complications: NONE apparent at time of evaluation Final Primary Anesthesia Type: MAC (The anesthetic type performed was the same as planned.) Comments: Patient SBP 120s on nicardipine gtt @5. SpO2 92% on 8L simple face mask with no wheezing appreciated. No increased WOB or respiratory distress. Anesthesia Preprocedure Evaluation - Lars Mojica MD - 09/01/2018 1:46 PM EDT Pre-Anesthesia Evaluation for: Charlene Harmon a 67 y.o. female. Procedure(s): SELECT CATH PLACE (FIRST-ORDER), MAIN RENAL ART & ANY ACC, W/S&I; ANDREY (WRVU 6.99) TRANSCATH PLACEMENT INTRAVASCULAR STENT, OPN/PERQ, INITIAL ARTERY, S&I (WRVU 9) Patient Active Problem List Diagnosis ??? Hypertensive urgency ??? Renal artery stenosis ??? Abdominal aortic aneurysm (AAA) without rupture ??? Acute hepatitis ??? Viral hepatitis B acute Past Medical History: Diagnosis Date ??? AAA (abdominal aortic aneurysm) [id number] angiogram; 3.2 cm infrarenal ??? Constipation ??? Dyslipidemia ??? Hypertension ??? Insomnia ??? Peripheral vascular disease ??? Renal artery stenosis R; per 2009 angiogram Past Surgical History: Procedure Laterality Date ??? HYSTERECTOMY ??? PRO UPPER GI ENDOSCOPY, DIAGNOSTIC 01/20/2014 EGD, UPPER GI ENDOSCOPY performed by Corby Cano MD at [facility] ENDOSCOPY ??? PRO UPPER GI ENDOSCOPY, DIAGNOSTIC N/A 07/28/2017 EGD, UPPER GI ENDOSCOPY performed by Snow Liao MD at [facility] ENDOSCOPY Social History Tobacco Use ??? Smoking status: Former Smoker Packs/day: 0.50 ??? Smokeless tobacco: Former User Quit date: 07/14/2012 Substance Use Topics ??? Alcohol use: Yes Comment: a few glasses of wine, rarely 4 times a year Social History Substance and Sexual Activity Drug Use No Allergies Allergen Reactions ??? Lisinopril Rise in creatinine Medications: MAR and/or home medications have been reviewed. Physical Exam: Most Recent Vitals: 09/01/18 1200 BP: 140/56 Pulse: 74 Resp: 12 Temp: 37 ??C (98.6 ??F) SpO2: 94% Body mass index is 19.74 kg/m??. Height: 154.9 cm (5' 1) Weight: 47.4 kg (104 lb 8 oz) Airway Assessment: Mallampati: II TM distance: >3 FB Neck ROM: full Small mouth Cardiovascular Assessment: Rhythm: regular Rate: normal Pulmonary Assessment: Dental Assessment: - normal exam Misc Assessment: IV access: Peripheral line Other exam findings: 20g piv in situ. Runs w/ complaint. Nicardipine infusion in line. Anesthesia Plan: ASA 3 MAC, with a(n) intravenous induction Charlene Harmon is a 67 yo woman with combined systolic and diastolic CHF (initial EF 30% rising to 54% onyesterday's TTE), moderate MR, 3.7 cm AAA, h/o acute viral hepatitis (B), renal artery stenosis (probable right RA occlusion) followed by vascular, and CKD Cr ~2 transferred here 2/2 inability to wean nicardipine gtt and and acute on chronic CHF. Was experiencing some SOB on admission which has improved over time. Currently on 5- 7.5 of nicardipine gtt with SBP in the 140s 08/30/18 TTE: EF 54%, no wma, no valvular disease Hgb 11.5, Plt 220K, Na 134, K 4.1, Cr 2.17 NPO appropriate. No personal or fhx of anesthesia problems. Allergy to lisinopril (Cr rise) Plan MAC w/ GA back-up Standard ASA monitoring Region - [facility] Informed Consent: Anesthetic plan and risks discussed with patient. Plan discussed with attending. PAT Clinic Note documented in this encounter [...] ceFAZolin (ANCEF) 1g in dextrose 5% Given 09/01/2018 3:28 PM EDT 1 g 50mL PRN, Starting on Thu09/01/18 at 1528, Until Thu09/01/18 at 1711, Administer over 30 Minutes, Anesthesia Intra-op dexamethasone (DECADRON) injection Given 09/01/2018 4:25 PM EDT 4 mg PRN, Starting on Thu09/01/18 at 1625, Until Thu09/01/18 at 1711, Anesthesia Intra-op, Routine dexmedetomidine (PRECEDEX) Rate/Dose Change 09/01/2018 3:43 0.8 mcg /kg/hr 9.5 mL/hr 4 mcg/mL (standard Adult & PM EDT Pedi greater than 20kg) infusion (premix) CONTINUOUS PRN, Starting on Thu09/01/18 at 1522, Until Thu09/01/18 at 1711, Anesthesia Intra-op New Bag 09/01/2018 3:22 PM EDT 0.6 mcg/kg/hr 7.1 mL/hr dexmedetomidine (PRECEDEX) injection Given 09/01/2018 3:28 PM EDT 4 mcg PRN, Starting on Thu09/01/18 at 1525, Until Thu09/01/18 at 1711, Anesthesia Intra-op, Routine Given 09/01/2018 3:25 PM EDT 4 mcg heparin (porcine) injection Given 09/01/2018 3:53 PM EDT 4,000 Units PRN, Starting on Thu09/01/18 at 1553, Until Thu09/01/18 at 1711, Anesthesia Intra-op, Routine lactated ringers infusion New Bag 09/01/2018 3:11 PM EDT CONTINUOUS PRN, Starting on Thu09/01/18 at 1511, Until Thu09/01/18 at 1711, Anesthesia Intra-op niCARdipine 0.2 mg/mL Restarted 09/05/2018 3:30 AM [...] 9:52 AM EDT 5 mg/hr 25 mL/hr propofol (DIPRIVAN) 10 mg/mL bolus injection Given 9 3:43 PM EDT 10 mg (Anesthesia) PRN, Starting on Thu09/01/18 at 1530, Until Thu09/01/18 at 1711, Anesthesia Intra-op Given 09/01/2018 3:30 PM EDT 20 mg propofol (DIPRIVAN) Rate/Dose 09/01/2018 3:28 100 mcg/kg/min 28.4 mL /hr infusion Change PM EDT CONTINUOUS PRN, Starting on Thu09/01/18 at 1522, Until Thu09/01/18 at 1711, Anesthesia Intra-op, Routine New Bag 09/01/2018 3:22 PM EDT 50 mcg/kg/min 14.2 mL/hr protamine injection Given 09/01/2018 3:53 PM EDT 25 mg PRN, Starting on Thu09/01/18 at 1553, Until Thu09/01/18 at 1711, Anesthesia Intra-op, Routine documented in this encounter Care Teams Senior Systems Engineer Relationship Specialty Start Date End Date Sanjuanita Lee MD PCP - General 03/05/13 12/23/[address] [place] [address] documented as of this encounter
--- OUTSIDE RECORDS SUMMARY | 2022-02-22 23:38 | XMS_ITS | Encounter Summary ---
:1950 [place] [address] Care Team Providers Name Role Phone Sanjuanita Lee MD Primary Care Provider Reason for Visit Reason Onset Date Comments Other 03/04/2018 Encounter Details Date Type Department Care Team Description 03/04/2018 Telephone Vascular Lab at [facility] [place] [address] Social History Tobacco Use Types Packs/Day [...] this encounter Miscellaneous Notes Telephone Encounter - Brenda Petra Alexander - 03/04/2018 9:52 AM EST Charlene called to check on status on what to do with CT (that has not been scheduled yet) I spoke with nurse Francisca and she will talk to RP tomorrow about what is next. Patient asked if we can call her onThursday as she is away for the weekend. On Thursday please call her office at [phone]. 03/04/18 HH documented in this encounter Plan of Treatment Scheduled Procedures Name Priority Associated Diagnoses Date/Time EGD, UPPER GI ENDOSCOPY Gastroesophageal reflux disease, esophagitis presence not specifi ed documented as of this encounter Visit Diagnoses Not on filedocumented in this encounter Care Teams Coater Smoking Pipe Relationship Specialty Start Date End Date Sanjuanita Lee MD PCP - General 03/05/13 12/23/[address] [place] [address] documented as of this encounter
--- OUTSIDE RECORDS SUMMARY | 2022-02-22 23:38 | XMS_ITS | Encounter Summary ---
:1950 Author Organization [place] [address] Care Team Providers Name Role Phone Sanjuanita Lee MD Primary Care Provider Encounter Details Date Type Department Care Team Description 02/26/2018 Orders Only Vascular Surgery at [facility] Marce Frost, [facility] [place] [address] Social History Tobacco Use Types Packs/Day [...] on filedocumented in this encounter Care Teams Data Integrity Consultant Relationship Specialty Start Date End Date Sanjuanita Lee MD PCP - General 03/05/13 12/23/21 [address] [place] [address] documented as of this encounter
--- OUTSIDE RECORDS SUMMARY | 2022-02-22 23:38 | XMS_ITS | Encounter Summary ---
:1950 Author Organization [facility] [place] [address] Care Team Providers Name Role Phone Sanjuanita Lee MD Primary Care Provider Reason for Visit Reason Comments Renal Artery Stenosis PT HERE FOR PRE SURGICAL DIS CUSSION OF RENAL ARTERY STENT Encounter Details Date Type Department Care Team Description 03/16/2018 Office Visit Vascular Surgery at [place] [place] Makenzie dominal aortic aneurysm (AAA) without rupture; [facility] [place] [facility] [place] [facility] [address] [place] [address] [phone] Social History Tobacco Use Types Packs/Day Years [...] Sign Reading Time Taken Comments Blood Pressure 182/79 03/16/2018 1:10 PM EST Pulse 103 03/16/2018 1:10 PM EST Temperature - - Respiratory Rate 18 03/16/2018 1:10 PM EST Oxygen Saturation - - Inhaled Oxygen Concentration - - Weight 49.9 kg (110 lb) 03/16/2018 1:10 PM EST Height 152.4 cm (5') 03/16/2018 1:10 PM EST Body Mass Index 21.48 03/16/2018 1:10 PM EST documented in this encounter Progress Notes Isac [facility] MD - 03/16/2018 1:00 PM EST OUTPATIENT VASCULAR SURGERY CONSULTATION Reason for Visit: Renovascular hypertension History of Present Illness: This is a 67 y.o. female with recently difficult to control blood pressure. Patient underwent a duplex of her renal arteries which demonstrated bilateral renal artery stenosis. Her antihypertensive medications currently include doxazosin and amlodipine. She denies any history of palpitations headaches. She is now seen in clinic to discuss the results of a CT arteriogram of the abdomen and pelvis. reports that she has quit smoking. She smoked 0.50 packs per day. She quit smokeless tobacco use about 5 years ago. Patient Active Problem List Diagnosis Code ??? Acute hepatitis B17.9 ??? Viral hepatitis B acute B16.9 ??? Abdominal aortic aneurysm (AAA) without rupture I71.4 ??? Renal artery stenosis I70.1 Current Outpatient Medications: ??? atorvastatin (LIPITOR) 40 mg Tablet, TAKE ONE TABLET BY MOUTH EVERY DAY, Disp: , Rfl: 3 ??? doxazosin (CARDURA) 4 mg Tablet, , Disp: , Rfl: ??? ascorbic acid, vitamin C, (VITAMIN C) 500 mg Tablet, Take 500 mg by mouth daily., Disp: , Rfl: ??? Potassium Gluconate 595 mg (99 mg) Tablet, Take by mouth., Disp: , Rfl: ??? calcium carbonate (TUMS) 200 mg calcium (500 mg) Tablet, Chewable, Take 1 tablet by mouth daily.1000 mg, Disp: , Rfl: ??? Cholecalciferol, Vitamin D3, (VITAMIN D-3) 2,000 unit Capsule, Take 1,000 Units by mouth., Disp:, Rfl: ??? gabapentin (NEURONTIN) 400 mg Capsule, Take 800 mg by mouth nightly., Disp: , Rfl: ??? amlodipine (NORVASC) 10 mg tablet, , Disp: , Rfl: ??? aspirin 81 mg EC tablet, Take 1 tablet by mouth daily., Disp: 30 tablet, Rfl: 3 ??? melatonin 3 mg Tab, Take 10 mg by mouth nightly., Disp: , Rfl: No Known Allergies Review of Systems: Constitutional (weight change, fever) - Denies Neuro (dizziness, seizures, numbness, tingling) - Denies Eyes (vision) - Denies Ears, nose, throat (hearing) - Denies Cardiovascular (CP) - Denies Respiratory (SOB) - Denies GI (abd pain, nausea, emesis, blood in stool) - Denies (hematuria, dysuria, frequency) - Denies Muscoloskeletal (extremity pain, weakness) - Denies Skin (ulcers, rashes) - Denies Functional Status/Social Hx: Family Hx: Negative for Thrombosis, Bleeding Disorders Physical Exam: BP 182/79 (BP Location (NBP): Left arm, Patient Position: Sitting) Pulse (!) 103 Resp 18 Ht 152.4 cm (5') Wt 49.9 kg (110 lb) BMI 21.48 kg/m?? General - NAD, appears stated age Neuro - Alert and Oriented, Motor Sensory grossly intact Skin - No prominent markings or lesions Ear, Nose, Throat - No masses, No lesions Cardiac - RRR, no murmurs Lungs - Clear Musculoskeletal- full ROM upper and lower extremities Psych- alert oriented X3 , Extremities - Warm, pink, no edema, brisk capillary refill Vascular Exam: R L Carotid 2/2 bruit () 2/2 bruit () Radial 2/2 2/2 Femoral 2/2 2/2 Popliteal DP 2/2 2/2 PT 2/2 2/2 Labs: No results found for this or any previous visit (from the past 72 hour(s)). Studies: Findings: Syl Renal Aorta ?PSV (cm/s): 95 ?EDV (cm/s): 0 Renal Artery Proximal, Right ?PSV (cm/s): 320 ?EDV (cm/s): 147 ?RAR: 3.4 ?RI: 0.54 Renal Artery Mid, Right ?PSV (cm/s): 37 ?EDV (cm/s): 14 ?RAR: 0.4 ?RI: 0.60 Renal Artery Distal, Right ?PSV (cm/s): 39 ?EDV (cm/s): 15 ?RAR: 0.4 ?RI: 0.62 Mid Pole Renal Parenchyma, Right ?PSV (cm/s): 13 ?EDV (cm/s): 6 ?RI: 0.53 Renal Hilum, Right ?AT (ms): 169 Kidney Length, Right ?Length (cm): 9.6 Renal Vein, Right ?Patent: Patent Renal Artery Ostium, Left ?PSV (cm/s): 185 ?EDV (cm/s): 41 Renal Artery Proximal, Left ?PSV (cm/s): 255 ?EDV (cm/s): 39 ?RAR: 2.7 ?RI: 0.85 Renal Artery Mid, Left ?PSV (cm/s): 215 ?EDV (cm/s): 45 ?RAR: 2.3 ?RI: 0.79 Renal Artery Distal, Left ?PSV (cm/s): 131 ?EDV (cm/s): 19 ?RAR: 1.4 ?RI: 0.85 Mid Pole Renal Parenchyma, Left ?PSV (cm/s): 46 ?EDV (cm/s): 11 ?RI: 0.75 Renal Hilum, Left ?AT (ms): 40 Kidney Length, Left ?Length (cm): 10.6 Renal Vein, Left ?Patent: Patent Interpretation: Right: Patent main renal artery with elevated velocities (PSV 320 cm/s) consistent with >60% stenosis. Renal artery ostium not well visualized to exclude more severe stenosis. Patent main renal vein. Left: Patent main renal artery with elevated velocities (PSV 255 cm/s) consistent with >60% stenosis. Patent main renal vein. Aorta: The aorta is aneurysmal with a maximum diameter measurement of 3.1 cm. No flowsheet data found. CTA The patient has a small infrarenal abdominal aortic aneurysm 3.7 cm in diameter and she has a left renal artery stenosis, the right renal artery is small and based on the timing of the contrast is again difficult to define the severity of the stenosis. Assessment and Plan: The patient has a small abdominal aortic aneurysm for which we discussed the natural history as wellas follow-up. With regards to renal artery she does have a significant right renal artery stenosis with a resistive index of less than 0.8 on the left she has a peak systolic velocity of 255 suggestivelikewise of stenosis greater than 60% however the resistive index is over 0.8. This suggests that intervention on the right renal artery might help to improve her blood pressure control. Currently her GFR is 47. Creatinine is normal. I discussed with her that while intervention is an option she has certainly not maximized her medical therapy the current time. As such our tentative plan is to follow he r aneurysm we will repeat a duplex of this in 6 months. This 6 months time. Should allow us to determine if her blood pressure control can be optimized medically and thus avoid any intervention. As such we will see her back in 6 months with a duplex of her renal arteries and her infrarenal aneurysm. documented in this encounter Plan of Treatment Scheduled Procedures Name Priority Associated Diagnoses Date/Time EGD, UPPER GI ENDOSCOPY Gastroesophageal reflux disease, esophagitis presence not specifi ed documented as of this encounter Visit Diagnoses Diagnosis Abdominal aortic aneurysm (AAA) without rupture Renal artery stenosis Atherosclerosis of renal artery documented in this encounter Care Teams Electric Motor Repairing Supervisor Relationship Specialty Start Date End Date Sanjuanita Lee MD PCP - General 03/05/13 12/23/21 [address] [place] [address] documented as of this encounter
--- OUTSIDE RECORDS SUMMARY | 2022-02-22 23:38 | XMS_ITS | Encounter Summary ---
:1950 Author Organization [facility] [place] [address] Care Team Providers Name Role Phone Sanjuanita Lee MD Primary Care Provider Reason for Referral Diagnostic Test (Routine) - Closed Specialty Diagnoses / Procedures Referred By Contact Refer red To Contact Radiology Diagnoses Abdominal aortic aneurysm (AAA) without rupture [facility] [address] [place] [address] Abdomen & [place] [address] [place] [address] Phone: Referral ID Status Reason Start Date Expiration Date Visits V isits Requested Authorized [id number] Closed Specialty 03/08/2018 05/06/2018 1 1 Service Requested Reason for Visit Diagnostic Test (Routine) - Closed Specialty Diagnoses / Procedures Referred By Contact Refer red To Contact Radiology Diagnoses Abdominal aortic aneurysm (AAA) without rupture [facility] [address] [place] [address] Procedures [address] Abdomen & [place] [address] [place] [address] Phone: Referral ID Status Reason Start Date Expiration Date Visits V isits Requested Authorized [id number] Closed Specialty 03/08/2018 05/06/2018 1 1 Service Requested Encounter Details Date Type Department Care Team Description 03/16/[address] [place] [facility] [place] Isac Moody Abdominal aortic [facility] MD Tesfaye aneurysm (AAA) Drive [facility] without rupture [place], [place] [facility] [address] VASCULAR SURGERY [phone] [place] [address] Social History Tobacco Use Types Packs/Day Years [...] Refills Start Date End Date atorvastatin (LIPITOR) 40 TAKE ONE TABLET BY 3 09/14/2018 mg Tablet MOUTH EVERY DAY doxazosin (CARDURA) 4 mg 0 01/27/2018 06/14/2018 Tablet ascorbic acid, vitamin C, Take 500 mg by 0 06/14/2018 (VITAMIN C) 500 mg Tablet mouth daily. Potassium Gluconate 595 mg Take by mouth. 0 06/14/2018 (99 mg) Tablet calcium carbonate (TUMS) Take 1 tablet by 0 06/14/2018 200 mg calcium (500 mg) mouth daily. 1000 Tablet, mg ChewableIndications: Hepatitis B infection without delta agent without hepatic coma, unspecified chronicity cholecalciferol, Vitamin Take 1,000 Units by 0 10/02/2018 D3, (VITAMIN D) 1,000 unit mouth. Tablet gabapentin (NEURONTIN) 800 Take 800 mg by 0 09/14/2018 mg Tablet mouth nightly. amlodipine (NORVASC) 10 mg Take 10 mg by mouth 0 02/28/2013 09/14/2018 tablet daily. aspirin 81 mg EC tablet Take 1 tablet by 30 tablet 3 201206/14/2018 mouth daily. melatonin 3 mg Tab Take 10 mg by mouth 0 06/14/2018 nightly. documented as of this encounter Plan of Treatment Scheduled Procedures Name Priority Associated Diagnoses Date/Time EGD, UPPER GI ENDOSCOPY Gastroesophageal reflux disease, esophagitis presence not specifi ed documented as of this encounter Procedures Procedure Name Priority Date/Time Associated Diagnosis Comme nts CT ABDOMEN AND Routine 03/16/2018 11:20 AM Abdominal aortic Re sults for this PELVIS WO CONTRAST EST aneurysm (AAA) procedu re are in without rupture the results section. documented in this encounter Results CT Abdomen & Pelvis wo Contrast (03/16/2018 11:20 AM EST) Anatomical Region Laterality Modality Abdomen, Pelvis Computed Tomography Specimen (Source) Anatomical Location Collection Method / Collectio n Time Received Time / Laterality Volume Impressions 03/16/2018 12:31 PM EST Fusiform abdominal aortic aneurysm with maximum dimension of 3.7 cm in the infrarenal aorta. Preliminary report signed by: Soumya Gtz at 03/16/2018 12:28 PM I have personally reviewed the image(s) and the residents interpretation and agree with the findings, Brent tovar at 03/16/2018 12:31 PM Narrative 03/16/2018 12:31 PM EST EXAMINATION: CT ABDOMEN AND PELVIS WO CONTRAST CLINICAL HISTORY: AAA evaluation TECHNIQUE: Helical CT of the abdomen and pelvis was performed without the use of intravenous contrast. ??Multiplanar refo rmatted images were generated. COMPARISON: None FINDINGS: The absence of intravenous contrast limi ts the evaluation of solid viscera and vasculature. Lower chest: Bilateral lung bases are cl ear. Coronary artery calcifications are present. Liver: Normal. Bile ducts: Nondilated. Gallbladder: No calcified gallstones. No rmal caliber wall. Pancreas: Normal attenuation without doug prakash dilatation. Spleen: Normal. Adrenals: Normal. Kidneys: No collecting system dilatation . No obstructing calculi. Vasculature: Fusiform aortic aneurysm in volving the entire abdominal aorta measuring 3.5 x 3.2 cm in greatest axial dimension and 3.4 cm orthogonal to the vertebral column at the level of the sussy phragmatic hiatus. The infrarenal aorta measures 3.6 x 3.7 cm in greatest dimens ion. Scattered aortoiliac vascular calcifications are present. Lymph Nodes: No enlarged lymph nodes. Bowel: Nondilated, no wall thickening. ? ? Peritoneum and mesentery: No ascites, fr ee air, or loculated fluid collection. No mesenteric inflammation. Abdominal wall: Normal. Urinary bladder: No calculi. Reproductive organs: Prior hysterectomy Osseous structures: No suspicious lesion s. Degenerative changes seen the lumbosacral spine including vacuum pheno frank at L4-L5 intervertebral disc. Procedure Note Brent Dhaliwal MD - 03/16/2018Form atting of this note might be different from the original. EXAMINATION: CT ABDOMEN AND PELVIS WO CO NTRAST CLINICAL HISTORY: AAA evaluation TECHNIQUE: Helical CT of the abdomen and pelvis was performed without the use of intravenous contrast. Multiplanar reform atted images were generated. COMPARISON: None FINDINGS: The absence of intravenous contrast limi ts the evaluation of solid viscera and vasculature. Lower chest: Bilateral lung bases are cl ear. Coronary artery calcifications are present. Liver: Normal. Bile ducts: Nondilated. Gallbladder: No calcified gallstones. No rmal caliber wall. Pancreas: Normal attenuation without doug prakash dilatation. Spleen: Normal. Adrenals: Normal. Kidneys: No collecting system dilatation . No obstructing calculi. Vasculature: Fusiform aortic aneurysm in volving the entire abdominal aorta measuring 3.5 x 3.2 cm in greatest axial dimension and 3.4 cm orthogonal to the vertebral column at the level of the sussy phragmatic hiatus. The infrarenal aorta measures 3.6 x 3.7 cm in greatest dimens ion. Scattered aortoiliac vascular calcifications are present. Lymph Nodes: No enlarged lymph nodes. Bowel: Nondilated, no wall thickening. Peritoneum and mesentery: No ascites, fr ee air, or loculated fluid collection. No mesenteric inflammation. Abdominal wall: Normal. Urinary bladder: No calculi. Reproductive organs: Prior hysterectomy Osseous structures: No suspicious lesion s. Degenerative changes seen the lumbosacral spine including vacuum pheno frank at L4-L5 intervertebral disc. IMPRESSION Fusiform abdominal aortic aneurysm with maximum dimension of 3.7 cm in the infrarenal aorta. Preliminary report signed by: Soumya Gtz at 03/16/2018 12:28 PM I have personally reviewed the image(s) and the residents interpretation and agree with the findings, Brent tovar at 03/16/2018 12:31 PM Isac Moody MD IMG CT ORDERABLES documented in this encounter Visit Diagnoses Diagnosis Abdominal aortic aneurysm (AAA) without rupture documented in this encounter Care Teams Credit Control Officer Relationship Specialty Start Date End Date Sanjuanita Lee MD PCP - General 03/05/13 12/23/[address] [place] [address] documented as of this encounter
--- OUTSIDE RECORDS SUMMARY | 2022-02-22 23:38 | XMS_ITS | Encounter Summary ---
:1950 Author Organization [facility] [place] [address] Care Team Providers Name Role Phone Sanjuanita Lee MD Primary Care Provider Reason for Referral Diagnostic Test (Routine) - Closed Specialty Diagnoses / Procedures Referred By Contact Refer red To Contact Radiology Diagnoses Abdominal aortic aneurysm (AAA) without rupture [facility]v [facility] Rad Ct Scan Procedures CT Abdomen & [place] [address] [place] [address] Phone: Referral ID Status Reason Start Date Expiration Date Visits V isits Requested Authorized [id number] Closed Specialty 03/08/2018 05/06/2018 1 1 Service Requested Encounter Details Date Type Department Care Team Description 03/08/2018 Telephone Vascular Surgery at [facility] Diana Denney, [place] [address] Social History Tobacco Use Types Packs/Day [...] Telephone Encounter - Diana Denney RN - 03/08/2018 9:54 AM EST This nurse spoke to Dr. Moody and a non-contrast CT will be ordered of the A&P due to Pt's GFR,Pt aware and will be scheduled at [facility] prior to visit on 03/[address] Moody. documented in this encounter Plan of Treatment [...] rupture documented in this encounter Care Teams Foreign Exchange Dealer Relationship Specialty Start Date End Date Sanjuanita Lee MD PCP - General 03/05/13 12/23/[address] [place] [address] documented as of this encounter
--- OUTSIDE RECORDS SUMMARY | 2022-02-22 23:38 | XMS_ITS | Encounter Summary ---
:1950 Author Organization [facility] [place] [address] Care Team Providers Name Role Phone Sanjuanita Lee MD Primary Care Provider Encounter Details Date Type Department Care Team Description 02/24/2018 [facility] [place] [address] Social History Tobacco Use Types Packs/Day [...] as of this encounter Results (ABNORMAL) Creatinine (02/24/2018 2:42 PM EDT) Analysis Performed At [employer] Time Signature Creatinine 1.47 (H) 0.70 - ZAKIA BLUNTCK 1.20 mg/dL [facility] Estimated GFR 36 (L) >=60 [facility] mL/min/1.7 [facility] 3 m?? [facility] Comment: The eGFR was calculated using the CKD-EP I equation. As with all creatinine based estimates of kidney function, eGFR values calculated with the CKD-EPI equation are not accurate in patients wi th acute kidney failure, extremes of body mass or the acutely ill. http://Alter-G/[facility] – [place] CITYnkf eGFR 42 (L) >=60 mL/min/1.73 m?? [facility] Comment: The eGFR was calculated using the CKD-EP I equation. As with all creatinine based estimates of kidney function, eGFR values calculated with the CKD-EPI equation are not accurate in patients wi th acute kidney failure, extremes of body mass or the acutely ill. http://Alter-G/DHnkf Specimen Anatomical Collection Method Collection Time Receive d Time (Source) Location / / Volume Laterality Blood specimen 02/24/2018 2:42 PM 018 3:00 (specimen) EDT PM EDT Resulting Agency Comment Spec In Lab Isac Moody MD CHEMISTRY ORDERABLES Performing Organization Address City/State/[place] [address] documented in this encounter Visit Diagnoses Diagnosis Abdominal aortic aneurysm (AAA) without rupture documented in this encounter Care Teams Assistant Nurse Manager Relationship Specialty Start Date End Date Sanjuanita Lee MD PCP - General 03/05/13 12/23/[address] [place] [address] documented as of this encounter
--- OUTSIDE RECORDS SUMMARY | 2022-02-22 23:38 | XMS_ITS | Encounter Summary ---
:1950 Author Organization [place] [address] Care Team Providers Name Role Phone Sanjuanita Lee MD Primary Care Provider Encounter Details Date Type Department Care Team Description 08/29/2018 Telephone Cardiology Valeria Chang MD [facility] [place] [address] CARDIOLOGY DEPT [phone] [place] [phone] (Wo rk) Social History Tobacco Use Types [...] this encounter Miscellaneous Notes Telephone Encounter - Valeria Chang MD - 08/29/2018 4:01 PM EDT Telephone Triage Note Initial Contact Date: 08/29/18 Initial contact time: 4pm Referring Provider: Kaden Patient Location: [facility] Presenting Symptoms per OSH: 67 year old woman with a history of CHF (EF 35%), bilateral YING, hypothyroidism who presented to OSHwith hypertensive emergency and volume overload. Required BiPAP, now on 1L NC 96%. Was on lasix gtt diuresing. BNP 12,000. Cr at baseline 1.95. Stress test May 1 low probability ischemia. Requiring nicardipine gtt for hypertension. Vascular surgery was contacted and agreed to evaluate for potential procedure but did not think they were best for primary patient service. Plan: Recommend transfer to hospital medicine for management of hypertensive urgency. Her CHF exacerbationseems to be significantly improved as she is only requiring 1L NC. Cardiology happy to consult as needed. Valeria Chang MD Bus Driver/Monitor documented in this encounter Plan of Treatment Scheduled Procedures Name Priority Associated Diagnoses Date/Time EGD, UPPER GI ENDOSCOPY Gastroesophageal reflux disease, esophagitis presence not specifi ed documented as of this encounter Visit Diagnoses Not on filedocumented in this encounter Care Teams Medical Technicians Relationship Specialty Start Date End Date Sanjuanita eLe MD PCP - General 03/05/13 12/23/[address] [place] [address] documented as of this encounter
--- OUTSIDE RECORDS SUMMARY | 2022-02-22 23:38 | XMS_ITS | Encounter Summary ---
:1950 [place] [address] Care Team Providers Name Role Phone Sanjuanita Lee MD Primary Care Provider Encounter Details Date Type Department Care Team Description 07/19/2018 Laboratory Appointment Lab 3L [facility] [place] [id number] Social History Tobacco Use Types Packs/Day Years [...] Procedure Name Priority Date/Time Associated Comments Diagnosis CYTOPLASMIC NEUTROPHILIC Routine 07/19/2018 9:07 Creatinine Results for this AB AM EDT elevation procedure are i n the results section. PROTEINASE-3 ANTIBODY Routine 07/19/2018 9:07 Creatinine Res ults for this AM EDT elevation procedure are i n the results section. MYELOPEROXIDASE AB Routine 07/19/2018 9:07 Creatinine Result s for this AM EDT elevation procedure are i n the results section. VITAMIN D, 25-HYDROXY Routine 07/19/2018 9:07 Res ults for this AM EDT procedure are i n the results section. MAGNESIUM Routine 07/19/2018 9:07 Results for this AM EDT procedure are i n the results section. BASIC METABOLIC PANEL Routine 07/19/2018 9:07 Creatinine Res ults for this (NON-FASTING) AM EDT elevation procedure are in the results section. documented in this encounter Results Magnesium (07/19/2018 9:07 AM EDT) athologist Signature Magnesium 0.82 0.69 - 1.07 [facility] mmol/L [facility] Specimen Anatomical Collection Method Collection Time Receive d Time (Source) Location / / Volume Laterality Blood specimen Venous Draw / 07/19/2018 9:07 AM 2018 (specimen) Unknown EDT 10:34 AM EDT Resulting Agency Comment Spec In Lab yTron Kemp MD CHEMISTRY ORDERABLES Performing Organization Address City/State/[place] [address] Vitamin D, 25-Hydroxy (07/19/2018 9:07 AM EDT) athologist Signature 25-OH Vit D 35 30 - 100 [facility] Total ng/mL [facility] Comment: Deficient <10 ng/mL Insufficient 10 to 29 ng/mL Sufficient 30 to 100 ng/mL Potential Intoxication >100 ng/mL According to the [place] National Osteoporosi s Foundation, Vitamin D concentrations >30 ng/mL are sufficient to protect bone health. ??The National Kidney Foundation has similarly stated that pat ients with Vitamin D concentrations <30ng/mL should be considered to be insu fficient or deficient. http://TRUE linkswear.com/nkf-guidelines http://TRUE linkswear.com/nejm-VitD The [employer] Vitamin D Immunoassay detec ts both 25-OH Vitamin D2 and 25-OH Vitamin D3, but only a total Vitamin D c oncentration is reported. Specimen Anatomical Collection Method Collection Time Receive d Time (Source) Location / / Volume Laterality Blood specimen Venous Draw / 07/19/2018 9:07 AM 2018 7:30 (specimen) Unknown EDT AM EDT Resulting Agency Comment Spec In Lab Tyron Kemp MD CHEMISTRY ORDERABLES Performing Organization Address City/State/[place] [address] (ABNORMAL) Basic Metabolic Panel (non-fasting) (07/19/2018 9:07 AM EDT) athologist Signature Glucose Lvl 115 65 - 199 [facility] mg/dL [facility] Comment: Diabetes: >=200 mg/dL plus symp toms BUN 32 (H) 8 - 18 mg/dL [facility] Creatinine 1.97 (H) 0.70 - 1.20 mg/dL [facility] Sodium 139 135 - 145 mmol/L [facility] Potassium 3.1 (L) 3.5 - 5.0 mmol/L [facility] Comment: Please note: ??Patients with WBC >100,00 0 may have falsely elevated Potassium levels. ??For accurate Potassium quantif ication in these patients send serum separator tube (gold top) for subsequent determinations. ??Contact the Clinical Chemistry Laboratory if there are any qu estions. Chloride 100 98 - 107 mmol/L [facility] CO2 24 22 - 31 mmol/L [facility] Anion Gap 15 5 - 15 mmol/L [facility] Calcium 9.1 8.5 - 10.5 mg/dL [facility] Estimated GFR 25 (L) >=60 mL/min/1.73 m?? [facility] Comment: The eGFR was calculated using the CKD-EP I equation. As with all creatinine based estimates of kidney function, eGFR values calculated with the CKD-EPI equation are not accurate in patients wi th acute kidney failure, extremes of body mass or the acutely ill. http://Vehrity/DHnkf eGFR 29 (L) >=60 mL/min/1.73 m?? [facility] Comment: The eGFR was calculated using the CKD-EP I equation. As with all creatinine based estimates of kidney function, eGFR values calculated with the CKD-EPI equation are not accurate in patients wi th acute kidney failure, extremes of body mass or the acutely ill. http://Vehrity/DHMCnkf Specimen Anatomical Collection Method Collection Time Receive d Time (Source) Location / / Volume Laterality Blood specimen 07/19/2018 9:07 AM 019 9:19 (specimen) EDT AM EDT Resulting Agency Comment Spec In Lab Tyron Kemp MD CHEMISTRY ORDERABLES Performing Organization Address City/[facility] Phon e Number [address] Cytoplasmic Neutrophilic Ab (07/19/2018 9:07 AM EDT) athologist Signature C-ANCA Negative Negative [facility] Comment: Test Performed by: [facility] [address] [facility] [place] [phone] P-ANCA Negative Negative [facility] Comment: Negative for cANCA and pANCA patterns by immunofluorescence. ADDITIONAL INFORMATIO N This test was developed and its performa nce characteristics determined by [facility] in a manner co nsistent with CLIA requirements. This test has not been cher ared or approved by the U.S. Food and Drug Administration. Test Performed by: [facility] [address] [place] [id number] 90 Specimen Anatomical Collection Method Collection Time Receive d Time (Source) Location / / Volume Laterality Blood specimen 07/19/2018 9:07 AM 019 (specimen) EDT 11:06 AM EDT Resulting Agency Comment Spec In Lab Tyron Kemp MD CHEMISTRY ORDERABLES Performing Organization Address City/[facility] Phon e Number [address] Myeloperoxidase Ab (07/19/2018 9:07 AM EDT) P athologist Signature MPO Ab <2.0 <=20.0 [facility] Specimen Anatomical Collection Method Collection Time Receive d Time (Source) Location / / Volume Laterality Blood specimen 07/19/2018 9:07 AM 019 7:30 (specimen) EDT AM EDT Resulting Agency Comment Spec In Lab Tyron Kemp MD CHEMISTRY ORDERABLES Performing Organization Address City/[facility]/[place] [address] Proteinase-3 Antibody (07/19/2018 9:07 AM EDT) athologist Signature PR3 Ab 2.1 <=20.0 [facility]ORY Specimen Anatomical Collection Method Collection Time Receive d Time (Source) Location / / Volume Laterality Blood specimen 07/19/2018 9:07 AM 019 7:30 (specimen) EDT AM EDT Resulting Agency Comment Spec In Lab Tyron Kemp MD CHEMISTRY ORDERABLES Performing Organization Address City/[facility]/[place] [address] documented in this encounter Visit Diagnoses Diagnosis Creatinine elevation Other nonspecific findings on examinatio n of blood documented in this encounter Care Teams House Mother Relationship Specialty Start Date End Date Sanjuanita Lee MD PCP - General 03/05/13 12/23/[address] [place] [address] documented as of this encounter
--- OUTSIDE RECORDS SUMMARY | 2022-02-22 23:38 | XMS_ITS | Encounter Summary ---
:1950 Author Organization [facility] [place] [address] Care Team Providers Name Role Phone Sanjuanita Lee MD Primary Care Provider Reason for Visit Reason Onset Date Comments Advice Only 08/29/2018 Encounter Details Date Type Department Care Team Description 08/29/2018 Telephone Vascular Surgery Leah Cline MD Advice Only [facility] [place] [address] VASCULAR SURGERY [phone] [place] [id number] (Wo rk) Social History Tobacco Use Types [...] Telephone Encounter - Leah Cline MD - 08/29/2018 4:14 PM EDT Telephone note Pt with hx of systolic CHF (EF 30%), 4 cm AAA, bilat renal artery stenosis, and CKD Cr ~2. Pt is admitted to outside hospital w hypertensive urgency and fluid overload. From OSH provider's report, theyare having significant difficulty weaning pt from nicardipine. Pt is being admitted to hospital medicine for the above issues. When pt arrives please page vascular surgery at [phone] for formal consultation regarding renal stent placement this admission. Please have pt NPO at midnight for renal duplex in a.m. Leah Cline MD/SANDY, PGY-5 Section of Vascular Surgery, Pager [phone] documented in this encounter Plan of Treatment Scheduled Procedures Name Priority Associated Diagnoses Date/Time EGD, UPPER GI ENDOSCOPY Gastroesophageal reflux disease, esophagitis presence not specifi ed documented as of this encounter Visit Diagnoses Not on filedocumented in this encounter Care Teams Regulatory Technician Relationship Specialty Start Date End Date Sanjuanita Lee MD PCP - General 03/05/13 12/23/[address] [place] [address] documented as of this encounter
--- OUTSIDE RECORDS SUMMARY | 2022-02-22 23:38 | XMS_ITS | Encounter Summary ---
:1950 Author Organization [facility] Address [place] [address]256 Care Team Providers Name Role Phone Sanjuanita Lee MD Primary Care Provider Reason for Visit Auth/Cert Specialty Diagnoses / Procedures Referred By Contact Refer red To Contact Diagnoses Hypertensive urgency RENAL ARTERY STENOSIS Procedures EMERGENCY IPI Referral ID Status Reason Start Date Expiration Date Visits Requ ested Visits Authorized [id number] 1 1 Encounter Details Date Type Department Care Team Description 09/01/2018 Surgery Main Operating Room Greyson Chen MD [facility] ([facility]), [facility] RENAL ART & ANY ACC, [facility] VASCULAR SURG PITER W/S&I; ANDREY (WRVU 6.99) [place] [phone] Social History Tobacco Use Types Packs/Day Years [...] Sign Reading Time Taken Comments Blood Pressure 138/57 09/01/2018 5:45 PM EDT Pulse 67 09/01/2018 5:45 PM EDT Temperature 37.6 ??C (99.7 ??F) 09/01/2018 4:54 PM EDT Respiratory Rate 10 09/01/2018 5:45 PM EDT Oxygen Saturation 91% 09/01/2018 5:45 PM EDT Inhaled Oxygen Concentration - - Weight 47.4 kg (104 lb 8 oz) 09/01/2018 6:00 AM EDT Height 154.9 cm (5' 1) 08/29/2018 6:32 PM EDT Body Mass Index 16.92 09/07/2018 6:00 AM EDT documented in this encounter Discharge Summaries Tess Duarte MD - 09/14/2018 3:02 PM EDT Discharge Summary Patient Name: Pretty Harmon Patient Age: 67 y.o. Language: Swiss Race: White Ethnicity: Not nor Admit date: [...] vascular, and CKD Cr ~[address] [facility] w hypertensive urgency and acute on [...] on iliac, end to end on renal, [place] right renal artery origin ligated. Completion duplex [...] Discharge: Patient Instructions You were admitted to [facility] and had a right iliac artery to [...] For any problems or questions please call [phone] KIMANI Ying, bee tender Nurse Clinician For issues on weeknights after 5pm and weekends please call [phone] and ask for the Vascular Fellow legal receptionist. General Instructions None Future Appointments and Orders Future Appointments and Orders Future Appointments Provider Department Dept Phone 09/23/2018 9:30 AM Unique Moody MD Vascular Surgery at [place] Arrive at: Liaison Inspection Laboratory Assistant Area [phone] Future Orders Complete By Expires Referral to Home Health - at DISCHARGE [[id number] CPT(R)] As directed Process Instructions: Scheduling Instructions: Comments: DOCUMENTATION FOR VNA SERVICES (INCLUDING THOSE PATIENTS WITH MEDICARE COVERAGE REQUIRING HOME VNA SERVICES AND/OR HOSPICE SERVICES) PATIENT'S LOCATION: Pretty Harmon [address] [place] [phone] (home) Cell: No relevant phone numbers on file. Edging Machine Catcher's Name: spouse Rodolfo In discussion with the attending physician, it is certified that this patient is under their care and that they, or a Nurse Practitioner,Clinical Nurse specialist or Physician Chemical Laboratory Technician who is working directly with them, had [...] complaining of dyspnea HOME HEALTH CARE AGENCY: [facility]. PHONE: [phone] FAX: [phone] Start of care: Within 24-48 hours of [...] from this patient'sPCP: Sanjuanita Lee MD [phone] [facility] [id number] All VNA agencies which cover the area of patient's residence have been reviewed, either verbally or in writing, and patient/family have chosen the home health care agency noted Questions: Agency name and contact information: [facility] Patient location post discharge: home What services are requested: Registered Nurse Speech Therapy Start date: 09/15/2018 Responsible MD post discharge contact info: PCP Discharge References/Attachments None documented in this encounter Discharge Instructions Patient Mally Barger RN - 09/10/2018 1:24 PM EDT You were admitted to [facility] and had a right iliac artery to [...] For any problems or questions please call [phone] Mally Osmar, BSN, bee tender Nurse Clinician For issues on weeknights after 5pm and weekends please call [phone] and ask for the Vascular Fellow legal receptionist. documented in this encounter Medications at Time [...] referrals are placed. Patient requests referral to [facility] [employer]. PHONE: [phone] FAX: [phone]. Expected date of discharge: 09/14/2018. Referral routed to the Case Mgr for matching with agency/vendor and to provide any required information. Mahogany Tomas RN [address] Director Of Safety Pager: [phone] Beba Aaron MD - 09/14/2018 [...] 0550 09/12/18 0800 09/12/18 0110 09/08/18 1500 05/203409/03/18 0655 NA 137 139 -- 139 < [...] electrolyte abnormalities.no overt fluid overload,uremic sx needing COLD STORAGE SUPERINTENDENT. - Daily weights,Low salt diet Will sign off . Please call with any questions.Discussed with Beba Evans MD Nephrology Fellow . #[id number] Tess Duarte MD - 09/13/2018 7:35 PM [...] Floor status, full code Tess Duarte Pager: [phone] Kacie Bills RN - 09/13/2018 6:06 PM EDT A&OX4. VSS and on RA. Lungs clear, HRR; murmur detected. +BS and voiding spontaneously. Abdominal incision with alex; CDI; MIRNA. Medial thigh incision with alex; CDI; MIRNA. [...] Diagnosis Date ??? AAA (abdominal aortic aneurysm) [id number] angiogram; 3.2 cm infrarenal ??? Constipation ??? Dyslipidemia ??? Hypertension ??? Insomnia ??? Peripheral vascular disease ??? Renal artery stenosis R; per 2010 angiogram Current Diet Order: regular Oral liquid [...] In: 1533 [P.O.:978; I.V.:5; Other:190; NG/GT:360] Out: 2001 [Urine:2000; Other:1] Skin (per wound report): intact Estimation of Nutrition Needs: Total Energy Estimated Needs: 0150-4637 kcal Method for Estimating Needs: 25-30 kcal/kg [...] Narayan cts Neena Morley RD, LD Pager [phone] Wilman Treadwell MD - 09/13/2018 10:20 AM [...] electrolyte abnormalities.no overt fluid overload,uremic sx needing COLD STORAGE SUPERINTENDENT. - Daily weights,Low salt diet We will continue to follow. Please call with any questions.Discussed with Beba Evans MD Nephrology Fellow . #[id number] Mandy Foster RN - 09/12/2018 5:38 PM EDT 09/12/18 2459 Safety Safety WDL WDL Visual Checks Awake Safety Factors call light in reach Safety Interventions Safety Promotion/Fall Prevention safety round/check completed All Alarms alarm(s) activated and audible Hotel Night Auditor Protection tubing secured Medication Review/Management medications reviewed [...] electrolyte abnormalities.no overt fluid overload,uremic sx needing COLD STORAGE SUPERINTENDENT. -Daily weights -Low salt diet We will continue to follow. Please call with any questions.Discussed with Dr.Remillard Nuha Young Nephrology Fellow . #[id number] Wilman Treadwell MD - 09/12/2018 8:54 AM [...] PGY -2 Section of Vascular Surgery, Pager [phone] Nuha Michael MD - 09/11/2018 10:20 AM [...] without issues. Labs: CBC: Recent Labs 09/11/18 0709/10/1824409/09/18 0250 WBC 11.8* 14.5* 18.8* HGB 10.3* [...] electrolyte abnormalities.no overt fluid overload,uremic sx needing COLD STORAGE SUPERINTENDENT. - improving creatinine and robust U.out put -Daily weights -Low salt diet We will continue to follow. Please call with any questions.Discussed with Dr.Remillard Nuha Young Nephrology Fellow . #[id number] Wilman Treadwell MD - 09/11/2018 8:50 AM [...] function related to reperfusion of her kidney. Ron, Thom Benjamin - 09/11/2018 7:15 AM EDT [...] PGY -2 Section of Vascular Surgery, Pager [phone] Beba Aaron MD - 09/10/2018 3:38 PM [...] extremities without issues. Labs: CBC: Recent Labs 09/10/18 02409/09/18 0250 09/08/18 1500 WBC 14.5* 18.8* 21.6* HGB 11.2* 11.9 11.5* PLATELET 244 223 249 Chemistry: Recent Labs 09/10/18 02409/09/18 0250 09/08/18 1500 09/07/18 2035 09/03/18 0655 [...] this interval not displayed. Recent Labs 09/10/18 0245 09/09/18 0250 09/08/18 1500 09/08/18 0515 09/03/18 0035 [...] questions. Beba Aaron MD Nephrology Fellow . #[id number]. Thom Velasquez - 09/10/2018 12:18 PM EDT [...] PGY -2 Section of Vascular Surgery, Pager [phone] Wilman Treadwell MD - 09/10/2018 10:34 AM [...] Diagnosis Date ??? AAA (abdominal aortic aneurysm) [id number] angiogram; 3.2 cm infrarenal ??? Constipation ??? [...] of Nutrition Needs: Total Energy Estimated Needs: 6650-0111 kcal Method for Estimating Needs: 25-30 kcal/kg [...] to clears. Neena Morley RD, LD Pager [phone] Thom Velasquez - 09/09/2018 3:49 PM EDT [...] PGY -2 Section of Vascular Surgery, Pager [phone] Beba Aaron MD - 09/09/2018 3:38 PM [...] extremities without issues. Labs: CBC: Recent Labs 09/09/18 02509/08/18 1500 09/08/18 0630 WBC 18.8* 21.6* 22.4* HGB 11.9 11.5* 11.6* PLATELET 223 249 216 Chemistry: Recent Labs 09/09/1824909/08/18 1500 09/08/18 0515 09/07/18 2035 09/03/18 0655 NA 140 [...] questions. Beba Aaron MD Nephrology Fellow . #[id number]. Associated attestation - Tyron Kemp MD - [...] 09/09/2018 10:54 AM EDT Pt transported to [facility] with all belongings and [...] Diagnosis Date ??? AAA (abdominal aortic aneurysm) [id number] angiogram; 3.2 cm infrarenal ??? Constipation ??? Dyslipidemia ??? Hypertension ??? Insomnia ??? Peripheral vascular disease ??? Renal artery stenosis R; per 2009 angiogram Past Surgical History: Procedure Laterality Date ??? HYSTERECTOMY ? ? PRO CATHETER 1ST ORDER W/WO ART PUNCT/FLUORO/S&I BILATERAL Bilateral 09/01/[address] (FIRST-ORDER), MAIN RENAL ART & ANY ACC, W/S&I; ANDREY (WRVU 6.99) performedby Greyson Chen MD at [facility] MAIN OR ??? PRO UPPER GI ENDOSCOPY, DIAGNOSTIC 01/20/2014 EGD, UPPER GI ENDOSCOPY performed by Corby Cano MD at [facility] ENDOSCOPY ??? PRO UPPER GI ENDOSCOPY, DIAGNOSTIC N/A 07/28/2017 EGD, UPPER GI ENDOSCOPY performed by Snow Liao MD at [facility] ENDOSCOPY Current Medications: ??? pantoprazole 40 mg [...] treat/prevent multiple vital organfailure/deterioration? No ?? Thom Jamil - 09/08/2018 11:30 AM EDT Vascular surgery [...] PGY -2 Section of Vascular Surgery, Pager [phone] Hiwot Ramirez MSW - 09/08/2018 11:08 AM EDT Attempted to meet with patient to discuss Advance Directives, but she was working with PT. Attempted again later and she was with a provider. Office of Case Management- Social Work Note CHAKA Rush, AC Pager [phone] Beba Aaron MD - 09/08/2018 9:50 AM [...] questions. Beba Aaron MD Nephrology Fellow . #[id number]. Associated attestation - Tyron Kemp MD - [...] Diagnosis Date ??? AAA (abdominal aortic aneurysm) [id number] angiogram; 3.2 cm infrarenal ??? Constipation ??? Dyslipidemia ??? Hypertension ??? Insomnia ??? Peripheral vascular disease ??? Renal artery stenosis R; per 2009 angiogram Past Surgical History: Procedure Laterality Date ??? HYSTERECTOMY ? ? PRO CATHETER 1ST ORDER W/WO ART PUNCT/FLUORO/S&I BILATERAL Bilateral 09/01/[address] (FIRST-ORDER), MAIN RENAL ART & ANY ACC, W/S&I; ANDREY (WRVU 6.99) performedby Greyson Chen MD at [facility] MAIN OR ??? PRO UPPER GI ENDOSCOPY, DIAGNOSTIC 01/20/2014 EGD, UPPER GI ENDOSCOPY performed by Corby Cano MD at [facility] ENDOSCOPY ??? PRO UPPER GI ENDOSCOPY, DIAGNOSTIC N/A 07/28/2017 EGD, UPPER GI ENDOSCOPY performed by Snow Liao MD at [facility] ENDOSCOPY Current Medications: ??? lidocaine 1 mL [...] treat/prevent multiple vital organfailure/deterioration? No ?? Leah Singleton MD - 09/07/2018 1:24 PM EDT Vascular [...] MD/SANDY, PGY-5 Section of Vascular Surgery, Pager [phone] Beba Aaron MD - 09/07/2018 9:58 AM [...] questions. Beba Aaron MD Nephrology Fellow . #[id number]. Associated attestation - Tyron Kemp MD - [...] - 09/07/2018 6:26 AM EDT ICU Blue (#[id number]) Progress Note Patient info: Name: Pretty Harmon : 1950 PCP: Sanjuanita Lee MD PCP phone number: [phone] Date of Admission: 08/29/2018 ( Hospital Day [...] and fluid overload in the settingof an GEAL. 24 Hour Events/Subjective: - Central line placed [...] Dax Sanders MD, PGY-1 09/07/2018 Blue Team #[id number] Associated attestation - Anurag Correa MD - [...] and documentation on the unit. MD Marlyn Tovar Jennifer L, MD - 09/06/2018 6:18 PM EDT Vascular [...] MD/SANDY, PGY-5 Section of Vascular Surgery, Pager [phone] Meera Taylor RCP - 09/06/2018 2:40 PM EDT 09/06/18 1000 Oxygen Therapy O2 Device NC O2 Flow Rate (L/min) 2 L/min SpO2 95 % Resp 22 pt remains on 2L sheri well. Pt has a prn duoneb treatment that has not been needed this shift Will continue to monitor pt 5/ cxr IMPRESSION Pulmonary vascular congestion and interstitial [...] questions. Beba Aaron MD Nephrology Fellow . #[id number]. Associated attestation - Tyron Kemp MD - [...] - 09/06/2018 6:33 AM EDT ICU Blue (#[id number]) Progress Note Patient info: Name: Pretty Harmon : 1950 PCP: Sanjuanita Lee MD PCP phone number: [phone] Date of Admission: 08/29/2018 ( Hospital Day [...] % Intake/Output Summary (Last 24 hours) at 09/06/2018632 Last data filed at 09/06/2018 0600 Gross [...] requirements have remained stable since transition to PA from NIV. Thoracic surgery currently considering intervention tomorrow pending [...] Dax Sanders MD, PGY-1 09/06/2018 Blue Team #[id number] Associated attestation - Anurag Correa MD - [...] on the unit. MD Hakan Tovar Cathy, [facility] - 09/06/2018 6:08 AM EDT Respiratory [...] extremities without issues. Labs: CBC: Recent Labs 09/05/1814909/04/1822409/02/18 140 WBC 12.0* 13.5* 9.7* HGB 12.3 12.0 11.8 PLATELET 243 221 229 Chemistry: Recent Labs 09/05/18 0254 09/05/18 01509/04/18 1320 09/04/1822409/03/1855 09/03/185 09/02/18 0329 NA -- 137 131* 137 [...] displayed. Recent Labs 09/05/18 0150 09/04/18 1320 09/04/185 09/03/18195609/03/18 0035 09/02/18 0329 08/31/18 0015 CALCIUM 8.5 [...] questions. Beba Aaron MD Nephrology Fellow . #[id number]. Associated attestation - Tyron Kemp MD - [...] - 09/05/2018 6:47 AM EDT ICU Blue (#[id number]) Progress Note Patient info: Name: Pretty Harmon : 1950 PCP: Sanjuanita Lee MD PCP phone number: [phone] Date of Admission: 08/29/2018 ( Hospital Day [...] Dax Sanders MD, PGY-2 09/05/2018 Blue Team #[id number] Greyson Beckford, COLD STORAGE SUPERINTENDENT - 09/04/2018 11:03 PM EDT Respiratory Care [...] therapy. NIV at night. ?? Alvaro Prieto QUALITY CONTROL AUDITOR - 09/04/2018 2:26 PM EDT Respiratory Care [...] -- -- 140 172 142 Recent Labs 09/04/1822409/03/18195609/03/1855 09/03/18 0035 09/02/189 08/31/18 0015 CALCIUM 8.7 8.5 [...] questions. Beba Aaron MD Nephrology Fellow . #[id number]. Associated attestation - Tyron Kemp MD - [...] - 09/04/2018 8:04 AM EDT ICU Blue (#[id number]) Progress Note Patient info: Name: Pretty Harmon : 1950 PCP: Sanjuanita Lee MD PCP phone number: [phone] Date of Admission: 08/29/2018 ( Hospital Day [...] 34.4* 33.5* PLATELET 221 229 Recent Labs 09/04/18 0225 09/03/18 1957 09/03/18 0655 09/03/18 0035 09/02/18 0329 [...] Rhea Cevallos MD, PGY-2 09/04/2018 Blue Team #[id number] Danisha Yu [facility] - 09/04/2018 1:47 AM EDT Respiratory Therapy [...] and BIPAP as tolerated. DANISHA YU RCP YT Leah Cline MD - 09/03/2018 5:40 PM [...] questions arise over the weekend please page legal receptionist vasc attending Greyson Trevizo, who isalso familiar with this case. Leah Cline MD/SANDY, PGY-5 Section of Vascular Surgery, Pager [phone] YT Wilman Lugo RCP - 09/03/2018 3:45 PM [...] 45% and 60% FiO2 [facility] Wilman Lugo RCP Wilman Randolph MD [...] - 09/03/2018 7:14 AM EDT ICU Blue (#[id number]) Progress Note Patient info: Name: Pretty Harmon : 1950 PCP: Sanjuanita Lee MD PCP phone number: [phone] Date of Admission: 08/29/2018 ( Hospital Day [...] Infusions: Continuous Infusions: ??? niCARdipine Stopped (09/02/18 171) Objective: Vitals Last value Range last 24 [...] Gas) No results found for: PHART, PO2ART, IDS0GHO, XGF1QVE Microbiology: Microbiology Results (Last 30 days) No [...] to nephrology recommendations regarding diuresis and if COLD STORAGE SUPERINTENDENT is warranted.hydration due to concerns of poor renal perfusion. - monitor volume status - BMP QD - Vascular as above - Appreciate nephrology consultation ?? Gastrointestinal/Metabolic/Nutrition - NTD Hematology/Infection - NTD Endocrine #HYPOTHYROIDISM: - Continued levothyroxine ?? # Routine Diet: Renal Diet DVT PPX: Heparin GI PPX: Pantoprazole Activity: As tolerated CODE STATUS: Full Code Dax Sanders MD, PGY-1 09/03/2018 Blue Team #[id number] Candy Dumont RN - 09/03/2018 7:04 AM [...] [facility] on bip[facility] and resting comfortably. Greyson Beckford COLD STORAGE SUPERINTENDENT - 09/03/2018 5:51 AM EDT Respiratory Therapy NIV Note NIV Settings: NIV Mode: S/T IPAP (cmH20): 12 EPAP (cmH20): 8 FiO2 (%): 90 % NIV Measurements: Resp: 19 Mve: 12.5 Leak (L/min): 18 L/min Vte: 660 SpO2: 96 % Laboratory: No results found for: PHART, GOH3IUC, PO2ART, ZVO5AKR, BEART Skin Assessment: NIV Skin Assessment WDL: WDL Mepilex Applied: Yes Nares Assessment WDL: WDL Breath Sounds: coarse, crackles throughout Assessment: Patient transported to ICU due to high O2 requirement on HFNC. Bipap initiated in unit and patient has tolerated well. GREYSON BECKFORD, COLD STORAGE SUPERINTENDENT Jeana Birmingham RN - 09/03/2018 4:33 AM [...] 193 VBTEXTRPT Department: Vascular Surgery Lab Patient: [id number] (PRE[place]) CPT: 20332 ICD10: I70.1 Referring Physician: LILIANA ECHEVERRIA Indications: [...] 3-4 (baseline creatinine 2) [facility] & systolic [facility]F. ADDITIONAL HISTORY: The patient was treated at OSH with a nicardipine gtt & lasix gtt. She initially required BiPAP for acute hypoxic respiratory failure but had been off BiPAP for ~ 36 hours by the time she was transferred. Due to ongoing need for nicardipine gtt, she was transferred to [facility] for consideration of renal artery interventions. Plan:?? [...] - Started on IV bolus lasix at [facility] - EKG at OSH showed STD V5-V6 [...] Code Family N/A PCP Sanjuanita Lee MD [phone] Attestation IPI Certification I certify that I am a D-H credentialed attending provider with admitting privileges and that the patient meets or has met medical necessity to require an inpatient IPI level of care meeting a minimum of two midnights or is on the [facility] inpatient only procedure list (status C) [...] Diagnosis Date ??? AAA (abdominal aortic aneurysm) [id number] angiogram; 3.2 cm infrarenal ??? Constipation ??? [...] encounter: 48.7 kg (107 lb 5.8 oz). [place] Body Weight (IBW): [place] body weight: 47.8 kg (105 lb 6.1 [...] nuts and peanut butter. TAMI Swartz Pager: [phone] Doris Lamb, RN - 09/02/2018 10:02 AM [...] sodium chloride 0.9 %, [JUN Hold] lidocaine, [JUN Hold] acetaminophen Interval History: - SOB has [...] 08/30/181938 VBTEXTRPT Department: Vascular Surgery Lab Patient: [id number] (PRE[place]) CPT: 70467 ICD10: I70.1 Referring Physician: LILIANA ECHEVERRIA Indications: [...] 3-4 (baseline creatinine 2) [facility] diastolic & systolic CHF. ADDITIONAL HISTORY: The patient was treated at OSH with a nicardipine gtt & lasix gtt. She initially required BiPAP for acute hypoxic respiratory failure but had been off BiPAP for ~ 36 hours by the time she was transferred. Due to ongoing need for nicardipine gtt, she was transferred to [facility] for consideration of renal artery interventions. Plan:?? [...] - Started on IV bolus lasix at [facility] - EKG at OSH showed STD V5-V6 [...] Code Family N/A PCP Sanjuanita Lee MD [phone] Attestation IPI Certification I certify that I am a D-H credentialed attending provider with admitting privileges and that the patient meets or has met medical necessity to require an inpatient IPI level of care meeting a minimum of two midnights or is on the [facility] inpatient only procedure list (status C) [...] STAT CXR done. 1810- report called to CARMELITA rn receiving pt in ISCU bed 81a. [id number] pt care from Rosalia JOB INTERVIEWER p 30 min break. HOB elevated to 30 degrees after two hours of bedrest s complications from rt femoral access site. con't to monitor. 1914 - Vascular surgery architectural intern paged. Notified hob elevated 30 degress [...] Recent Labs 08/31/18 0015 08/30/18 0800 08/29/18 204 NA 135 138 134* K 3.9 3.6 [...] 08/30/181938 VBTEXTRPT Department: Vascular Surgery Lab Patient: [id number] (PRETTY [place]) CPT: 74767 ICD10: I70.1 Referring Physician: LILIANA ECHEVERRIA Indications: [...] 3-4 (baseline creatinine 2) [facility] diastolic & systolic CHF. ADDITIONAL HISTORY: The patient was treated at OSH with a nicardipine gtt & lasix gtt. She initially required BiPAP for acute hypoxic respiratory failure but had been off BiPAP for ~ 36 hours by the time she was transferred. Due to ongoing need for nicardipine gtt, she was transferred to [facility] for consideration of renal artery interventions. Plan:?? [...] - Started on IV bolus lasix at [facility] - EKG at OSH showed STD V5-V6 [...] Code Family N/A PCP Sanjuanita Lee MD [phone] Attestation IPI Certification I certify that I am a D-H credentialed attending provider with admitting privileges and that the patient meets or has met medical necessity to require an inpatient IPI level of care meeting a minimum of two midnights or is on the [facility] inpatient only procedure list (status C) [...] [90 %-97 %] 08/30 0701 - 08/31 0700 In: 1649.9 [P.O.:1360; I.V.:289.9] Out: 1905 [Urine:1905] [...] do her case himself He is at [place] tomorrow therefore plan for renal stent (bilat) on Thursday Pt seen at bedside w Dr Fransisco Cline MD/SANDY, PGY-5 Section of Vascular Surgery, Pager [phone] Ren Hoffmann MD - 08/30/2018 8:38 AM [...] 3-4 (baseline creatinine 2) [facility] diastolic & systolic CHF. ADDITIONAL HISTORY: The patient was treated at OSH with a nicardipine gtt & lasix gtt. She initially required BiPAP for acute hypoxic respiratory failure but had been off BiPAP for ~ 36 hours by the time she was transferred. Due to ongoing need for nicardipine gtt, she was transferred to [facility] for consideration of renal artery interventions. Plan:?? [...] - Started on IV bolus lasix at [facility] - EKG at OSH showed STD V5-V6 [...] Code Family N/A PCP Sanjuanita Lee MD [phone] Attestation IPI Certification I certify that I am a D-H credentialed attending provider with admitting privileges and that the patient meets or has met medical necessity to require an inpatient IPI level of care meeting a minimum of two midnights or is on the [facility] inpatient only procedure list (status C) [...] 96 % SpO2: [92 %-96 %] 08/29 07 - 08/30 07 In: 600 [P.O.:600] Out: 900 [Urine:900] Physical [...] Diagnosis Date ??? AAA (abdominal aortic aneurysm) [id number] angiogram; 3.2 cm infrarenal ??? Constipation ??? [...] (WRVU 6.99) performedby Greyson Chen MD at [facility] MAIN OR ??? PRO UPPER GI ENDOSCOPY, DIAGNOSTIC 01/20/2014 EGD, UPPER GI ENDOSCOPY performed by Corby Cano MD at [facility] ENDOSCOPY ??? PRO UPPER GI ENDOSCOPY, DIAGNOSTIC N/A 07/28/2017 EGD, UPPER GI ENDOSCOPY performed by Snow Liao MD at [facility] ENDOSCOPY ALL: Allergies Allergen Reactions ??? Lisinopril [...] file Gets together: Not on file Attends jainism service: Not on file Active member of [...] Rodolfo of 50 years. 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 Hoping to retire 11/2018 and travel throughout [facility] and [place] with Rodolfo. No history of heavy etoh [...] hours. Recent Labs 09/07/18 1549 PHART 7.45 ORS6BAY 39 PO2ART 86 LHO8TQG 60 BEART 2.4 Lactate: 1.1 ASSESSMENT/PLAN: Pretty [...] PCP: Sanjuanita Lee MD PCP phone #: [phone] ID/Chief Complaint: 67 yo F with a [...] urgency), and CKD who initially presented to [facility] with hypertensive urgency and acute on chronic diastolic HF. She was treated with a nicardipine gtt and lasix gtt, and she required BiPAP initially. Due to her persistent need for the nicardipine gtt, she was transferred to [facility] for consideration of renal artery interventions. Pt [...] Emergency Medicine, PGY-2 Critical Care Blue 2, #[id number] Liliana Echeverria MD - 08/29/2018 4:44 PM EDT Inpatient Hospital Medicine - Admission Note Problem List: Active Hospital Problems Diagnosis ??? Hypertensive urgency Resolved Hospital Problems No resolved problems to display. Active Non-Hospital Problems Diagnosis ??? Renal artery stenosis ??? Abdominal aortic aneurysm (AAA) without rupture ??? Acute hepatitis ??? Viral hepatitis B acute ID: 67 y.o. 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 w hypertensive urgency and acute on [...] in May, June/July and this is [facility]th [facility]. Feels fine in between episodes. Develops symptoms [...] Diagnosis Date ??? AAA (abdominal aortic aneurysm) [id number] angiogram; 3.2 cm infrarenal ??? Constipation ??? Dyslipidemia ??? Hypertension ??? Insomnia ??? Peripheral vascular disease ??? Renal artery stenosis R; per 2009 angiogram Past Surgical History: Procedure Laterality Date ??? HYSTERECTOMY ??? PRO UPPER GI ENDOSCOPY, DIAGNOSTIC 01/20/2014 EGD, UPPER GI ENDOSCOPY performed by Corby Cano MD at [facility] ENDOSCOPY ??? PRO UPPER GI ENDOSCOPY, DIAGNOSTIC N/A 07/28/2017 EGD, UPPER GI ENDOSCOPY performed by Snow Liao MD at [facility] ENDOSCOPY Prior To Admission Medications: Medications Prior [...] file Gets together: Not on file Attends jainism service: Not on file Active member of [...] in v4-v6 improved from previous EKG at 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 w hypertensive urgency and acute on [...] to the planned procedure. Hand Hygiene: The aerospace technician did perform hand hygiene prior to arterial [...] Independent/standby, eyes on Surveillance [continuous indirect monitoring]: Aliyah safety rounding Patient-specific fall prevention interventions for [...] unsuccessful. Right groin incision with well-approximated alex, HAT PARTS CUTTER MACHINE, CDI with no drainage or s/s of infection.Upper abdomen incision also stapled, CDI/HAT PARTS CUTTER MACHINE. Patient endorses pain to RLQ, Dilaudid given [...] Surveillance [continuous indirect monitoring]: Jannet Monitor, call acrmona within reach at all times ?? Patient-specific [...] within reach, call light answered in person, logno monitor Patient-specific fall prevention interventions for sensory [...] Date ??? AAA (abdominal aortic aneurysm) ? [id number] angiogram; 3.2 cm infrarenal ??? Constipation ? [...] 6.99) performed by Greyson Chen MD at [facility] MAIN OR ??? PRO UPPER GI ENDOSCOPY, DIAGNOSTIC ?? 01/20/2014 ?? EGD, UPPER GI ENDOSCOPY performed by Corby Cano MD at [facility] ENDOSCOPY ??? PRO UPPER GI ENDOSCOPY, DIAGNOSTIC N/A 07/28/2017 ?? EGD, UPPER GI ENDOSCOPY performed by Snow Liao MD at [facility] ENDOSCOPY ? Social History: Home set-up: Pt lives with her who has been retired. She has 2 adult children, [place] and [place]. Lives in a 2 Story home. Bathroom on each level. Bedroom is up a flight of stairs, with a railing. 2 steps into the house, with unknown railing. 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 Baseline Mobility: Fully independent and self sufficient. [...] standing rests, due to fatigue Assessment: Pretty Walld was seen today for physical therapy treatment [...] plan as stated. Time IN / OUT: 9700-5192 Total Evaluation Minutes, Physical Therapy: 27(TEF2) DONALD LOCKETT, PT Pager: [phone] Physical Therapy Inpatient Rehabilitation Department Plan of [...] GOAL OUTCOME EVALUATION: Plan of Care - Julisa-Donald Putnam, PT - 09/09/2018 10:26 AM EDT Physical [...] Date ??? AAA (abdominal aortic aneurysm) ? [id number] angiogram; 3.2 cm infrarenal ??? Constipation ? [...] 6.99) performed by Greyson Chen MD at [facility] MAIN OR ??? PRO UPPER GI ENDOSCOPY, DIAGNOSTIC ?? 01/20/2014 ?? EGD, UPPER GI ENDOSCOPY performed by Corby Cano MD at [facility] ENDOSCOPY ??? PRO UPPER GI ENDOSCOPY, DIAGNOSTIC N/A 07/28/2017 ?? EGD, UPPER GI ENDOSCOPY performed by Snow Liao MD at [facility] ENDOSCOPY ? Social History: Home set-up: Pt lives with her who has been retired. She has 2 adult children, [place] and [place]. Lives in a 2 Story home. Bathroom on each level. Bedroom is up a flight of stairs, with a railing. 2 steps into the house, with unknown railing. 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 Baseline Mobility: Fully independent and self sufficient. [...] visit. [facility] Education: Reminded pt to use IS [...] OOB and ambulation form ICU South to [facility]. Needed increased FIO2 and [...] plan as stated. Time IN / OUT: 6327-0827 Total Evaluation Minutes, Physical Therapy: 20(TEF) DONALD LOCKETT, PT Pager: [phone] Physical Therapy Inpatient Rehabilitation Department Plan of [...] Good urine output most of shift; from 0823-4260 pt with only 85cc of urine output, [...] and ADLs]: SBA Surveillance [continuous indirect monitoring]: [place] ICU, hourly rounding Patient-specific fall prevention interventions [...] provided -- Plan of Care - Donald Lockett PT - 09/08/2018 2:08 PM EDT Physical [...] Diagnosis Date ??? AAA (abdominal aortic aneurysm) [id number] angiogram; 3.2 cm infrarenal ??? Constipation ??? Dyslipidemia ??? Hypertension ??? Insomnia ??? Peripheral vascular disease ??? Renal artery stenosis R; per 2009 angiogram Past Surgical History: Procedure Laterality Date ??? HYSTERECTOMY ? ? PRO CATHETER 1ST ORDER W/WO ART PUNCT/FLUORO/S&I BILATERAL Bilateral 09/01/[address] (FIRST-ORDER), MAIN RENAL ART & ANY ACC, W/S&I; ANDREY (WRVU 6.99) performedby Greyson Chen MD at [facility] MAIN OR ??? PRO UPPER GI ENDOSCOPY, DIAGNOSTIC 01/20/2014 EGD, UPPER GI ENDOSCOPY performed by Corby Cano MD at [facility] ENDOSCOPY ??? PRO UPPER GI ENDOSCOPY, DIAGNOSTIC N/A 07/28/2017 EGD, UPPER GI ENDOSCOPY performed by Snow Liao MD at [facility] ENDOSCOPY Social History: Home set-up: Pt lives with her who has been retired. She has 2 adult children, [place] and [place]. Lives in a 2 Story home. Bathroom on each level. Bedroom is up a flight of stairs, with a railing. 2 steps into the house, with unknown railing. 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 Baseline Mobility: Fully independent and self sufficient. Equipment at home: None Precautions/Special Considerations: Leukocytosis, 22, /15; Anemia, 11.6; risk for skin breakdown. 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 Precautions/Special Considerations: fall risk, NGT to [...] and measurable assessment of functional outcome. Pager: [phone] JOEL LEHMAN OT 09/08/2018 Occupational Therapy Rehabilitation [...] Outcome: Ongoing (Interventions Implemented as Appropriate) 08/29/18 183 Mutuality/Individual Preferences What Anxieties, Fears or Concerns [...] required during toileting and ADLs]: RN and NECK PINNER Surveillance [continuous indirect monitoring]: Telemetry, alarms, frequent [...] (CPG) Outcome: Ongoing (Interventions Implemented as Appropriate) 09/08/18614 Skin Integrity Impairment, Risk/Actual Skin Integrity Impairment, Risk/Actual: Related Risk Factors fluid/nutrition status;immobility Goal: Skin Integrity/Wound Healing Patient will demonstrate the desired outcomes by discharge/transition of care. Outcome: Ongoing (Interventions Implemented as Appropriate) 09/08/18614 Skin Integrity Impairment, Risk/Actual (Adult) Skin Integrity/Wound Healing making progress toward outcome Op Note - Leah Cline MD - 09/07/2018 9:06 PM EDT [facility] Operative Note ?? Patient Name: Pretty Harmon : [id number] MR#: [id number] ?? Case Date: 09/07/2018 ?? Surgeon: Surgeon(s) [...] on iliac, end to end on renal, [place] right renal artery origin ligated Completion duplex [...] Operative Note Patient Name: Pretty Harmon : [id number] MR#: [id number] Case Date: 09/07/2018 Surgeon: Surgeon(s) and Role: [...] on iliac, end to end on renal, [place] right renal artery origin ligated Completion duplex [...] MULTIPLE VEIN PHLEBITI Consult Note - Jinny Haywood, RN - 09/06/2018 12:09 PM EDT Images [...] Care Overview Goal: Discharge Needs Assessment 09/06/18 06 Discharge Needs Assessment Discharge Disposition still a [...] Outcome: Ongoing (Interventions Implemented as Appropriate) 09/03/18 4069 Coping/Psychosocial Plan Of Care Reviewed With patient;spouse;family [...] call with any questions. Beba Aaron MD #[id number]. Associated attestation - Tyron Kemp MD - [...] uncontrolled hypertensive urgency, she was transferred to [facility] for consideration of intervention of bilateral renal [...] weaned off nicardipine and was transferred to [facility] for possible vascular surgery intervention. On 09/01, [...] Diagnosis Date ??? AAA (abdominal aortic aneurysm) [id number] angiogram; 3.2 cm infrarenal ??? Constipation ??? Dyslipidemia ??? Hypertension ??? Insomnia ??? Peripheral vascular disease ??? Renal artery stenosis R; per 2010 angiogram Past Surgical History: Procedure Laterality Date ??? HYSTERECTOMY ??? PRO UPPER GI ENDOSCOPY, DIAGNOSTIC 01/20/2014 EGD, UPPER GI ENDOSCOPY performed by Corby Cano MD at [facility] ENDOSCOPY ??? PRO UPPER GI ENDOSCOPY, DIAGNOSTIC N/A 07/28/2017 EGD, UPPER GI ENDOSCOPY performed by Snow Liao MD at [facility] ENDOSCOPY Family History Problem Relation Age of [...] PLATELET 220 235 235 Chemistry: Recent Labs 09/02/1832809/01/18 0020 08/31/18 0015 NA 134* 134* 135 K 4.8 4.1 3.9 CL 98 99 98 CO2 20* 23 23 BUN 36* 24* 21* CREATININE 2.71* 2.17* 1.93* GLUCOSE 142 117 128 Recent Labs 09/02/1832809/01/18 0020 08/31/18 0015 CALCIUM 8.5 7.8* 7.9* [...] uncontrolled hypertensive urgency, she was transferred to [facility] for consideration of intervention of bilateral renal [...] careful shared decision as at present time, jail dialysis is not in line with patient's [...] Jessa Real MD?PGY-1 Internal??Medicine Nephrology Consult Pager #[phone] Associated attestation - Candida Adair MD - [...] primary team. Candida Adair MD Nephrology Pager: [phone] Med Student Progress Note - Cate Sheehan - 09/02/2018 1:45 PM EDT [facility] Medicine Sub-I Daily Progress Note Admit Date: [...] ??? sodium chloride 0.9% 75 mL/hr (09/02/18 0296) ??? niCARdipine 5 mg/hr (09/02/18 0907) PRN: [...] Last 3 ProBNP, Trop, CK Recent Labs 08/29/18 2043 CK 61 TROPONINT <0.01 FSBG Trend No [...] 1939 VBTEXTRPT Department: Vascular Surgery Lab Patient: [id number] (PRETTY HARMON) CPT: 94605 ICD10: I70.1 Referring Physician: LILIANA ECHEVERRIA Indications: [...] Goals of Care: Team Pager( Coverage 17/11): #[phone] PCP: Sanjuanita Lee MD [phone] Cate Sheehan MS3 Pager [phone] 09/02/2018 Plan of Care - Lorraine Rivero RN - 09/02/2018 4:42 AM EDT Problem: Patient Care Overview Goal: Plan of Care Review Outcome: Ongoing (Interventions Implemented as Appropriate) 09/02/18 0438 Coping/Psychosocial Plan Of Care Reviewed With patient Plan of Care Review Progress improving OUTCOME EVALUATION NOTE: OUTCOME SUMMARY 3742-8762: A/Ox4. Afebrile. HR 60s-70s. SBP 130s-140s on [...] Cline MD - 09/01/2018 5:21 PM EDT [facility] Operative Note ?? Patient Name: Pretty Harmon : [id number] MR#: [id number] ?? Case Date: 09/01/2018 ?? Surgeon: Surgeon(s) [...] (Bilateral) ? Anesthesia: General ?? Findings: Left COMMISSIONING MANAGER access Able to select left renal with [...] catch on vessel origin 6F deployed right COMMISSIONING MANAGER, no hematoma, +right DP pulse at case [...] Operative Note Patient Name: Pretty Harmon : [id number] MR#: [id number] Case Date: 09/01/2018 Surgeon: Surgeon(s) and Role: [...] (WRVU 6.99) (Bilateral) Anesthesia: General Findings: Left COMMISSIONING MANAGER access Able to select left renal with [...] catch on vessel origin 6F deployed right COMMISSIONING MANAGER, no hematoma, +right DP pulse at case [...] vascular, and CKD Cr ~[address] [facility] w hypertensive urgency and acute on [...] May, June/July and this is [facility]. Feels fine in between episodes. Develops symptoms [...] Diagnosis Date ??? AAA (abdominal aortic aneurysm) [id number] angiogram; 3.2 cm infrarenal ??? Constipation ??? Dyslipidemia ??? Hypertension ??? Insomnia ??? Peripheral vascular disease ??? Renal artery stenosis R; per 2009 angiogram Hospitalizations Within the Past 30 Days: se H&P Anticipated Length Of Stay (If known): Expected Length of Hospitalization: tbd Current Decision-Making Capacity: a,ox3 Advance Care Planning: to Rodolfo Harmon [phone] who is surrogate MPOA Current Coping/Education/Information Needs: [...] Health/Prescription Coverage: Primary Insurance: MEDICARE Secondary Insurance: [employer] [place] Prescription Coverage: yes Preferred [facility]acy: [facility] Primary Care Provider: Sanjuanita Lee MD [phone] Patient/Caregiver Goals of Treatment: Home with MD [...] of care planning. Shannen Isaacs, RN Pager: [phone] Plan of Care - Corwin Hendrickson RN [...] of the shift. Currently off as of 05. Pt kept NPO after midnight. Vitals stable. [...] Diagnosis Date ??? AAA (abdominal aortic aneurysm) [id number] angiogram; 3.2 cm infrarenal ??? Constipation ??? Dyslipidemia ??? Hypertension ??? Insomnia ??? Peripheral vascular disease ??? Renal artery stenosis R; per 2009 angiogram PSH: Past Surgical History: Procedure Laterality Date ??? HYSTERECTOMY ??? PRO UPPER GI ENDOSCOPY, DIAGNOSTIC 01/20/2014 EGD, UPPER GI ENDOSCOPY performed by Corby Cano MD at [facility] ENDOSCOPY ??? PRO UPPER GI ENDOSCOPY, DIAGNOSTIC N/A 07/28/2017 EGD, UPPER GI ENDOSCOPY performed by Snow Liao MD at [facility] ENDOSCOPY MEDICATIONS: No current facility-administered medications on [...] file Gets together: Not on file Attends jainism service: Not on file Active member of [...] Res ults for this SEND TO LAB ([facility]) AM EDT proce dure are in the [...] Res ults for this SEND TO LAB ([facility]) PM EDT proce dure are in the [...] procedure are i n the results section. BYPASS GRAFT, Routine 09/07/2018 1:22 AORTOILIAC W\ [...] section. TYPE AND SCREEN STAT 09/07/2018 7:46 ([facility]/CGP/NINI) AM EDT BMP W/FASTING GLUCOSE Routine 09/07/2018 [...] (ABNORMAL) Differential, Automated (09/14/2018 5:16 AM EDT) [facility] Method Time Signature Neutrophils % 66.9 % [facility] Neutr Abs (ANC) 7.10 (H) 1.70 - [facility] 6.10 [facility] x10(3)/[facility] LABORATORY Lymphocytes % 11.7 % [facility] Lymphocytes Abs 1.2 0.9 - 3.2 [facility] x10(3)/[facility] LABORATORY Monocytes % 10.5 % [facility] Monocyte Abs 1.1 (H) 0.3 - 0.9 [facility] x10(3)/[facility] LABORATORY Eosinophils % 8.7 % [facility] Eosinophils Abs 0.9 (H) 0.0 - 0.4 [facility] x10(3)/[facility] LABORATORY Basophils % 0.9 % [facility] Basophils Abs 0.1 0.0 - 0.1 [facility] x10(3)/[facility] LABORATORY Immature Gran % 1.30 % [facility] Comment: Immature granulocytes(IG's)percentage an d absolute count will include metamyelocytes, myelocytes, and promyelo cytes. Blood smears from CBCs yielding IG's will be scanned manually for concor dance. If this scan disagrees with the automated IG or if promyelocytes are not ed, a manual differential will be performed. Blanca Gran Abs 0.14 (H) 0.00 - 0.04 x10(3)/[facility] LABORATORY Specimen Anatomical Collection Method Collection Time Receive d Time (Source) Location / / Volume Laterality Blood specimen 09/14/2018 5:16 AM 019 5:24 (specimen) EDT AM EDT Resulting Agency Comment Spec In Lab Thom A Ron HEMATOLOGY ORDERABLES Performing Organization Address City/State/[place] [address] (ABNORMAL) Hemogram (09/14/2018 5:16 AM EDT) Analysis Performed At Patho logist Time Signature WBC 10.6 (H) 4.0 - 9.5 [facility] x10(3)/[facility] LABORATORY RBC 3.98 (L) 4.00 - [place] 5.21 [facility] x10(6)/[facility] LABORATORY Hemoglobin 11.9 11.7 - [facility] 15.5 gm/dL [facility] Hematocrit 35.6 (L) 35.7 - [facility] 45.8 % [facility] MCV 89.4 82.6 - [facility] 94.4 [facility] LABORATORY MCH 29.9 27.1 - [place] 32.0 pg [facility] MCHC 33.4 31.7 - [facility] 35.0 gm/dL [facility] Platelets 266 145 - 357 [facility] x10(3)/[facility] LABORATORY RDWSD 44.4 37.0 - [facility] 46.0 [facility] LABORATORY RDWCV 13.6 11.5 - [facility] 14.1 % [facility] MPV 11.0 7.6 - 12.9 [facility] LABORATORY nRBC % Auto 0.0 % [facility] nRBC Abs Auto 0.000 0.000 - [facility] 0.000 [facility] x10(3)/[facility] LABORATORY Specimen Anatomical Collection Method Collection Time Receive d Time (Source) Location / / Volume Laterality Blood specimen 09/14/2018 5:16 AM 019 5:24 (specimen) EDT AM EDT Resulting Agency Comment Spec In Lab Thom Velasquez MD HEMATOLOGY ORDERABLES Performing Organization Address City/State/[place] [address] (ABNORMAL) Magnesium (09/14/2018 5:16 AM EDT) P athologist Signature Magnesium 0.63 (L) 0.69 - 1.07 [facility] mmol/L [facility] Specimen Anatomical Collection Method Collection Time Receive d Time (Source) Location / / Volume Laterality Blood specimen 09/14/2018 5:16 AM 019 5:23 (specimen) EDT AM EDT Resulting Agency Comment Spec In Lab Unique Moody MD CHEMISTRY ORDERABLES Performing Organization Address City/State/[place] [address] (ABNORMAL) BMP w/fasting Glucose (09/14/2018 5:16 AM EDT) athologist Signature Glucose 109 (H) 65 - 99 [facility] Fasting mg/dL [facility] Comment: ?Fasting* Glucose Interpretive C riteria [...] of Diabetes Mellitus, Position Statement from the [place] [employer]. ??Diabete s Care, Volume 33, Supplement 1, Apr 2009 BUN 16 8 - 18 mg/dL [facility] Creatinine 1.64 (H) 0.70 - 1.20 mg/dL [facility] Sodium 137 135 [...] estions. Chloride 106 98 - 107 mmol/L [facility] CO2 17 (L) 22 - 31 mmol/L [facility] Anion Gap 14 5 - 15 mmol/L [facility] Calcium 8.8 8.5 - 10.5 mg/dL [facility] Estimated GFR 32 (L) >=60 mL/min/1.73 m?? [facility] Comment: The eGFR was calculated using the CKD-EP I equation. As with all creatinine based estimates of kidney function, eGFR values calculated with the CKD-EPI equation are not accurate in patients wi th acute kidney failure, extremes of body mass or the acutely ill. [email or web address] eGFR 37 (L) >=60 mL/min/1.73 m?? [facility] Comment: The eGFR was calculated using the CKD-EP I equation. As with all creatinine based estimates of kidney function, eGFR values calculated with the CKD-EPI equation are not accurate in patients wi th acute kidney failure, extremes of body mass or the acutely ill. [email or web address] Specimen Anatomical Collection Method Collection Time Receive d Time (Source) Location / / Volume Laterality Blood specimen 09/14/2018 5:16 AM 019 5:23 (specimen) EDT AM EDT Resulting Agency Comment Spec In Lab Unique Moody MD CHEMISTRY ORDERABLES Performing Organization Address City/State/ZIP Code Phon e Number [place] [id number] (ABNORMAL) Differential, Automated (09/13/2018 5:50 AM EDT) [facility] Method Time Signature Neutrophils % 62.6 % [facility] Neutr Abs (ANC) 5.06 1.70 - [facility] 6.10 [facility] x10(3)/[facility] LABORATORY Lymphocytes % 16.1 % [facility] Lymphocytes Abs 1.3 0.9 - 3.2 [facility] x10(3)/[facility] LABORATORY Monocytes % 10.9 % [facility] Monocyte Abs 0.9 0.3 - 0.9 [facility] x10(3)/[facility] LABORATORY Eosinophils % 7.4 % [facility] Eosinophils Abs 0.6 (H) 0.0 - 0.4 [facility] x10(3)/[facility] LABORATORY Basophils % 1.0 % [facility] Basophils Abs 0.1 0.0 - 0.1 [facility] x10(3)/[facility] LABORATORY Immature Gran % 2.00 % [facility] Comment: Immature granulocytes(IG's)percentage an d absolute count will include metamyelocytes, myelocytes, and promyelo cytes. Blood smears from CBCs yielding IG's will be scanned manually for concor dance. If this scan disagrees with the automated IG or if promyelocytes are not ed, a manual differential will be performed. Blanca Gran Abs 0.16 (H) 0.00 - 0.04 x10(3)/[facility] LABORATORY Specimen Anatomical Collection Method Collection Time Receive d Time (Source) Location / / Volume Laterality Blood specimen 09/13/2018 5:50 AM 019 6:09 (specimen) EDT AM EDT Resulting Agency Comment Spec In Lab Thom Velasquez MD HEMATOLOGY ORDERABLES Performing Organization Address City/State/[place] [address] (ABNORMAL) Hemogram (09/13/2018 5:50 AM EDT) Analysis Performed At Patho logist Time Signature WBC 8.1 4.0 - 9.5 [facility] x10(3)/[facility] LABORATORY RBC 3.26 (L) 4.00 - [place] 5.21 [facility] x10(6)/[facility] LABORATORY Hemoglobin 10.1 (L) 11.7 - [facility] 15.5 gm/dL [facility] Hematocrit 29.8 (L) 35.7 - [facility] 45.8 % [facility] MCV 91.4 82.6 - [facility] 94.4 fL [facility] MCH 31.0 27.1 - [place] 32.0 pg [facility] MCHC 33.9 31.7 - [facility] 35.0 gm/dL [facility] Platelets 237 145 - 357 [facility] LABORATORY RDWSD 44.6 37.0 - ZAKIA ZHANG 46.0 [facility] LABORATORY RDWCV 13.3 11.5 - [place]AK[place] ZHANG 14.1 % [facility] MPV 11.3 7.6 - 12.9 ZAKIA ZHANG [facility] LABORATORY nRBC % Auto 0.0 % [facility] nRBC Abs Auto 0.000 0.000 - ZAKIA ZHANG 0.000 [facility] x10(3)/[facility] LABORATORY Specimen Anatomical Collection Method Collection Time Receive d Time (Source) Location / / Volume Laterality Blood specimen 09/13/2018 5:50 AM 019 6:09 (specimen) EDT AM EDT Resulting Agency Comment Spec In Lab Thom Velasquez MD HEMATOLOGY ORDERABLES Performing Organization Address City/[facility]/ZIP Code Phon e Number [address] (ABNORMAL) Magnesium (09/13/2018 5:50 AM EDT) P athologist Signature Magnesium 0.65 (L) 0.69 - 1.07 [facility] mmol/L [facility] Specimen Anatomical Collection Method Collection Time Receive d Time (Source) Location / / Volume Laterality Blood specimen 09/13/2018 5:50 AM 019 6:09 (specimen) EDT AM EDT Resulting Agency Comment Spec In Lab Unique Moody MD CHEMISTRY ORDERABLES Performing Organization Address City/[facility]/[place] [address] (ABNORMAL) BMP w/fasting Glucose (09/13/2018 5:50 AM EDT) P athologist Signature Glucose 160 (H) 65 - 99 [facility] Fasting mg/dL [facility] Comment: ?Fasting* Glucose Interpretive C riteria [...] of Diabetes Mellitus, Position Statement from the [place] [employer]. ??Diabete s Care, Volume 33, Supplement 1, Apr 2009 BUN 21 (H) 8 - 18 mg/dL [facility] Creatinine 1.73 (H) 0.70 - 1.20 mg/dL [facility] Sodium 139 135 - 145 mmol/L [facility] Potassium 3.3 (L) 3.5 - 5.0 mmol/L [facility] Comment: Please note: ??Patients with WBC >100,00 0 may have falsely elevated Potassium levels. ??For accurate Potassium quantif ication in these patients send serum separator tube (gold top) for subsequent determinations. ??Contact the Clinical Chemistry Laboratory if there are any qu estions. Chloride 105 98 - 107 mmol/L [facility] CO2 20 (L) 22 - 31 mmol/L [facility] Anion Gap 14 5 - 15 mmol/L [facility] Calcium 8.3 (L) 8.5 - 10.5 mg/dL [facility] Estimated GFR 30 (L) >=60 mL/min/1.73 m?? [facility] Comment: The eGFR was calculated using the CKD-EP I equation. As with all creatinine based estimates of kidney function, eGFR values calculated with the CKD-EPI equation are not accurate in patients wi th acute kidney failure, extremes of body mass or the acutely ill. [email or web address] eGFR 34 (L) >=60 mL/min/1.73 m?? [facility] Comment: The eGFR was calculated using the CKD-EP I equation. As with all creatinine based estimates of kidney function, eGFR values calculated with the CKD-EPI equation are not accurate in patients wi th acute kidney failure, extremes of body mass or the acutely ill. [email or web address] Specimen Anatomical Collection Method Collection Time Receive d Time (Source) Location / / Volume Laterality Blood specimen 09/13/2018 5:50 AM 019 6:09 (specimen) EDT AM EDT Resulting Agency Comment Spec In Lab Unique Moody MD CHEMISTRY ORDERABLES Performing Organization Address City/[facility]/[place] [address] Potassium (09/12/2018 8:00 AM EDT) P athologist Signature Potassium 4.2 3.5 - 5.0 [facility] mmol/L [facility] Comment: Please note: ??Patients with WBC [...] Moody MD CHEMISTRY ORDERABLES Performing Organization Address City/[facility]/ZIP Code Phon e Number [address] (ABNORMAL) Differential, Automated (09/12/2018 1:10 AM EDT) Patholo gist Method Time Signature Neutrophils % 65.0 % [facility] Neutr Abs (ANC) 5.74 1.70 - [facility] 6.10 [facility] x10(3)/[facility] LABORATORY Lymphocytes % 16.5 % [facility] Lymphocytes Abs 1.5 0.9 - 3.2 [facility] x10(3)/[facility] LABORATORY Monocytes % 10.0 % [facility] Monocyte Abs 0.9 0.3 - 0.9 [facility] x10(3)/[facility] LABORATORY Eosinophils % 6.2 % [facility] Eosinophils Abs 0.6 (H) 0.0 - 0.4 [facility] x10(3)/[facility] LABORATORY Basophils % 0.9 % [facility] Basophils Abs 0.1 0.0 - 0.1 [facility] x10(3)/[facility] LABORATORY Immature Gran % 1.40 % [facility] Comment: Immature granulocytes(IG's)percentage an d absolute count will include metamyelocytes, myelocytes, and promyelo cytes. Blood smears from CBCs yielding IG's will be scanned manually for concor dance. If this scan disagrees with the automated IG or if promyelocytes are not ed, a manual differential will be performed. Blanca Gran Abs 0.12 (H) 0.00 - 0.04 x10(3)/[facility] LABORATORY Specimen Anatomical Collection Method Collection Time Receive d Time (Source) Location / / Volume Laterality Blood specimen 09/12/2018 1:10 AM 019 1:14 (specimen) EDT AM EDT Resulting Agency Comment Spec In Lab Thom Velasquez MD HEMATOLOGY ORDERABLES Performing Organization Address City/State/[place] [address] (ABNORMAL) Hemogram (09/12/2018 1:10 AM EDT) Analysis Performed At Patho logist Time Signature WBC 8.8 4.0 - 9.5 [facility] x10(3)/[facility] LABORATORY RBC 3.23 (L) 4.00 - [place] 5.21 [facility] x10(6)/[facility] LABORATORY Hemoglobin 9.7 (L) 11.7 - [facility] 15.5 gm/dL [facility] Hematocrit 29.3 (L) 35.7 - [facility] 45.8 % [facility] MCV 90.7 82.6 - [facility] 94.4 fL [facility] MCH 30.0 27.1 - [place] 32.0 pg [facility] MCHC 33.1 31.7 - [facility] 35.0 gm/dL [facility] Platelets 228 145 - 357 [facility] x10(3)/[facility] LABORATORY RDWSD 46.8 (H) 37.0 - [place]AK[place] ZHANG 46.0 [facility] LABORATORY RDWCV 13.8 11.5 - [facility] 14.1 % [facility] MPV 11.2 7.6 - 12.9 [place] [facility] nRBC % Auto 0.0 % [facility] nRBC Abs Auto 0.000 0.000 - [place] 0.000 [facility] x10(3)/[facility] LABORATORY Specimen Anatomical Collection Method Collection Time Receive d Time (Source) Location / / Volume Laterality Blood specimen 09/12/2018 1:10 AM 019 1:14 (specimen) EDT AM EDT Resulting Agency Comment Spec In Lab Thom Velasquez MD HEMATOLOGY ORDERABLES Performing Organization Address City/[facility]/ZIP Code Phon e Number [address] (ABNORMAL) Magnesium (09/12/2018 1:10 AM EDT) P athologist Signature Magnesium 0.68 (L) 0.69 - 1.07 [facility] mmol/L [facility] Specimen Anatomical Collection Method Collection Time Receive d Time (Source) Location / / Volume Laterality Blood specimen 09/12/2018 1:10 AM 019 1:14 (specimen) EDT AM EDT Resulting Agency Comment Spec In Lab Unique Moody MD CHEMISTRY ORDERABLES Performing Organization Address City/[facility]/[place] [address] (ABNORMAL) BMP w/fasting Glucose (09/12/2018 1:10 AM EDT) P athologist Signature Glucose 145 (H) 65 - 99 [facility] Fasting mg/dL [facility] Comment: ?Fasting* Glucose Interpretive C riteria [...] of Diabetes Mellitus, Position Statement from the [place] [employer]. ??Diabete s Care, Volume 33, Supplement 1, Apr 2009 BUN 25 (H) 8 - 18 mg/dL [facility] Creatinine 1.59 (H) 0.70 - 1.20 mg/dL [facility] Sodium 139 135 - 145 mmol/L [facility] [...] estions. Chloride 105 98 - 107 mmol/L [facility] CO2 22 22 - 31 mmol/L [facility] Anion Gap 12 5 - 15 mmol/L [facility] Calcium 8.4 (L) 8.5 - 10.5 mg/dL [facility] Estimated GFR 33 (L) >=60 mL/min/1.73 m?? [facility] Comment: The eGFR was calculated using the CKD-EP I equation. As with all creatinine based estimates of kidney function, eGFR values calculated with the CKD-EPI equation are not accurate in patients wi th acute kidney failure, extremes of body mass or the acutely ill. [email or web address] [email or web address] eGFR 38 (L) >=60 mL/min/1.73 m?? [facility] Comment: The eGFR was calculated using the CKD-EP I equation. As with all creatinine based estimates of kidney function, eGFR values calculated with the CKD-EPI equation are not accurate in patients wi th acute kidney failure, extremes of body mass or the acutely ill. [email or web address] [email or web address] Specimen Anatomical Collection Method Collection Time Receive d Time (Source) Location / / Volume Laterality Blood specimen 09/12/2018 1:10 AM 019 1:14 (specimen) EDT AM EDT Resulting Agency Comment Spec In Lab Unique Moody MD CHEMISTRY ORDERABLES Performing Organization Address City/[facility]/[place] [address] Potassium (09/11/2018 6:20 PM EDT) P athologist Signature Potassium 3.5 3.5 - 5.0 [facility] mmol/L [facility] Comment: Please note: ??Patients with WBC [...] Moody MD CHEMISTRY ORDERABLES Performing Organization Address City/[facility]/ZIP Code Phon e Number [address] (ABNORMAL) Differential, Automated (09/11/2018 7:30 AM EDT) Patholo gist Method Time Signature Neutrophils % 69.1 % [facility] Neutr Abs (ANC) 8.12 (H) 1.70 - [facility] 6.10 [facility] x10(3)/[facility] LABORATORY Lymphocytes % 13.9 % [facility] Lymphocytes Abs 1.6 0.9 - 3.2 [facility] x10(3)/[facility] LABORATORY Monocytes % 10.8 % [facility] Monocyte Abs 1.3 (H) 0.3 - 0.9 [facility] x10(3)/[facility] LABORATORY Eosinophils % 3.3 % [facility] Eosinophils Abs 0.4 0.0 - 0.4 [facility] x10(3)/[facility] LABORATORY Basophils % 0.9 % [facility] Basophils Abs 0.1 0.0 - 0.1 [facility] x10(3)/[facility] LABORATORY Immature Gran % 2.00 % [facility] Comment: Immature granulocytes(IG's)percentage an d absolute count will include metamyelocytes, myelocytes, and promyelo cytes. Blood smears from CBCs yielding IG's will be scanned manually for concor dance. If this scan disagrees with the automated IG or if promyelocytes are not ed, a manual differential will be performed. Blanca Gran Abs 0.23 (H) 0.00 - 0.04 x10(3)/[facility] LABORATORY Specimen Anatomical Collection Method Collection Time Receive d Time (Source) Location / / Volume Laterality Blood specimen 09/11/2018 7:30 AM 019 7:43 (specimen) EDT AM EDT Resulting Agency Comment Spec In Lab Thom Velasquez MD HEMATOLOGY ORDERABLES Performing Organization Address City/State/[place] [address] (ABNORMAL) Hemogram (09/11/2018 7:30 AM EDT) Analysis Performed At Patho logist Time Signature WBC 11.8 (H) 4.0 - 9.5 [facility] x10(3)/[facility] LABORATORY RBC 3.38 (L) 4.00 - [facility] 5.21 [facility] x10(6)/[facility] LABORATORY Hemoglobin 10.3 (L) 11.7 - [facility] 15.5 gm/dL [facility] Hematocrit 31.3 (L) 35.7 - [facility] 45.8 % [facility] MCV 92.6 82.6 - [facility] 94.4 fL [facility] MCH 30.5 27.1 - [facility] 32.0 pg [facility] MCHC 32.9 31.7 - [facility] 35.0 gm/dL [facility] Platelets 231 145 - 357 [facility] x10(3)/[facility] LABORATORY RDWSD 47.8 (H) 37.0 - ZAKIA ZHANG 46.0 [facility] LABORATORY RDWCV 14.3 (H) 11.5 - [facility] 14.1 % [facility] MPV 11.0 7.6 - 12.9 ZAKIA ZHANG [facility] nRBC % Auto 0.0 % [facility] nRBC Abs Auto 0.000 0.000 - [place] 0.000 [facility] x10(3)/[facility] LABORATORY Specimen Anatomical Collection Method Collection Time Receive d Time (Source) Location / / Volume Laterality Blood specimen 09/11/2018 7:30 AM 019 7:43 (specimen) EDT AM EDT Resulting Agency Comment Spec In Lab Thom Velasquez MD HEMATOLOGY ORDERABLES Performing Organization Address City/[facility]/ZIP Code Phon e Number [address] Magnesium (09/11/2018 7:30 AM EDT) P athologist Signature Magnesium 0.83 0.69 - 1.07 [facility] mmol/L [facility] Specimen Anatomical Collection Method Collection Time Receive d Time (Source) Location / / Volume Laterality Blood specimen 09/11/2018 7:30 AM 019 7:43 (specimen) EDT AM EDT Resulting Agency Comment Spec In Lab Unique Moody MD CHEMISTRY ORDERABLES Performing Organization Address City/[facility]/ZIP Code Phon e Number [address] (ABNORMAL) BMP w/fasting Glucose (09/11/2018 7:30 AM EDT) P athologist Signature Glucose 127 (H) 65 - 99 [facility] Fasting mg/dL [facility] Comment: ?Fasting* Glucose Interpretive C riteria [...] of Diabetes Mellitus, Position Statement from the [place] [employer]. ??Diabete s Care, Volume 33, Supplement 1, Apr 2009 BUN 32 (H) 8 - 18 mg/dL [facility] Creatinine 1.61 (H) 0.70 - 1.20 mg/dL [facility] Sodium 141 135 - 145 mmol/L [facility] Potassium 3.1 (L) 3.5 - 5.0 mmol/L [facility] Comment: Please note: ??Patients with WBC >100,00 0 may have falsely elevated Potassium levels. ??For accurate Potassium quantif ication in these patients send serum separator tube (gold top) for subsequent determinations. ??Contact the Clinical Chemistry Laboratory if there are any qu estions. Chloride 106 98 - 107 mmol/L [facility] CO2 22 22 - 31 mmol/L [facility] Anion Gap 13 5 - 15 mmol/L [facility] Calcium 8.4 (L) 8.5 - 10.5 mg/dL [facility] Estimated GFR 32 (L) >=60 mL/min/1.73 m?? [facility] Comment: The eGFR was calculated using the CKD-EP I equation. As with all creatinine based estimates of kidney function, eGFR values calculated with the CKD-EPI equation are not accurate in patients wi th acute kidney failure, extremes of body mass or the acutely ill. [email or web address]MAN[facility]f eGFR 37 (L) >=60 mL/min/1.73 m?? [facility] Comment: The eGFR was calculated using the CKD-EP I equation. As with all creatinine based estimates of kidney function, eGFR values calculated with the CKD-EPI equation are not accurate in patients wi th acute kidney failure, extremes of body mass or the acutely ill. [email or web address] Specimen Anatomical Collection Method Collection Time Receive d Time (Source) Location / / Volume Laterality Blood specimen 09/11/2018 7:30 AM 019 7:43 (specimen) EDT AM EDT Resulting Agency Comment Spec In Lab Unique Moody MD CHEMISTRY ORDERABLES Performing Organization Address City/[facility]/[place] [address] Unilat Bypass Graft Assess (09/10/2018 8:30 AM EDT) Component Value Ref Test Analysis Performed At [facility] gist Range Method Time Signature VB Text Department: Vascular Surgery Lab VASCUBASE Report Patient: [id number] (PRETTY HARMON) CPT: 83975 ICD10: I70.1 Referring Physician: UNIQUE MOODY ?? [...] Moody MD VASCULAR ORDERABLES Performing Organization Address City/[facility]/ZIP Code Phon e Number [email or web address] Urinalysis Microscopic Exam (09/10/2018 7:50 AM EDT) P athologist Signature RBC UA <1 0 - 4 /HPF [facility] WBC UA <1 0 - 5 /HPF [facility] Specimen (Source) Anatomical Collection Method Collection Time Re ceived Time Location / / Volume Laterality Urine specimen 09/10/2018 7:50 09/10/2018 9:15 obtained by clean AM EDT AM EDT catch procedure (specimen) Resulting Agency Comment Spec In Lab Leah Cline MD URINE ORDERABLES Performing Organization Address City/[facility]/[place] [address] [facility] [address] Drive Urine Hold (09/10/2018 7:50 AM EDT) P athologist Signature Urine Hold Sample in [facility]. [facility] Specimen Anatomical Collection Method Collection Time Receive d Time (Source) Location / / Volume Laterality Urine specimen Urine / Unknown 09/10/2018 7:50 AM 08/25 9:15 (specimen) EDT AM EDT Leah Cline MD URINE ORDERABLES Performing Organization Address City/State/ZIP Code Phon e Number [address] (ABNORMAL) Urinalysis with reflex Culture (09/10/2018 7:50 AM EDT) Patholo gist Method Time Signature Glucose UA Negative Negative [facility] mg/dL [facility] Protein UA 100 (A) Negative [facility] mg/dL [facility] Bilirubin UA Negative Negative [facility] mg/dL [facility] Comment: Clinical correlation required for positi ve Urine Bilirubin results as false positive may occur with some drugs and d rug related products. If a false positive is suspected a serum total bili blandon should be considered if clinically indicated. Urobilinogen UA Normal Normal mg/dL [facility] pH UA 7.0 5.0 - 8.0 [facility] Blood UA Negative Negative mg/dL [facility] Ketones UA 5 (A) Negative mg/dL [facility] Nitrite UA Negative Negative [facility] Leukocytes UA Negative Negative [facility] LABORATORY Appearance UA Clear Clear [facility] Spec [place] UA 1.010 1.002 - 1.030 [facility] Color UA Straw Yellow [facility] Culture Reflexed No [facility] Specimen (Source) Anatomical Collection Method Collection Time Re ceived Time Location / / Volume Laterality Urine specimen 09/10/2018 7:50 09/10/2018 9:15 obtained by clean AM EDT AM EDT catch procedure (specimen) Resulting Agency Comment Spec In Lab Unique Moody MD URINE ORDERABLES Performing Organization Address City/State/[place] [address] (ABNORMAL) Differential, Automated (09/10/2018 2:45 AM EDT) [facility] Method Time Signature Neutrophils % 75.4 % [facility] Neutr Abs (ANC) 10.95 (H) 1.70 - [facility] 6.10 [facility] x10(3)/[facility] LABORATORY Lymphocytes % 8.9 % [facility] Lymphocytes Abs 1.3 0.9 - 3.2 [facility] x10(3)/[facility] LABORATORY Monocytes % 12.6 % [facility] Monocyte Abs 1.8 (H) 0.3 - 0.9 [facility] x10(3)/[facility] LABORATORY Eosinophils % 0.3 % [facility] Eosinophils Abs 0.0 0.0 - 0.4 [facility] x10(3)/[facility] LABORATORY Basophils % 0.6 % [facility] Basophils Abs 0.1 0.0 - 0.1 [facility] x10(3)/[facility] LABORATORY Immature Gran % 2.20 % [facility] Comment: Immature granulocytes(IG's)percentage an d absolute count will include metamyelocytes, myelocytes, and promyelo cytes. Blood smears from CBCs yielding IG's will be scanned manually for concor dance. If this scan disagrees with the automated IG or if promyelocytes are not ed, a manual differential will be performed. Blanca Gran Abs 0.32 (H) 0.00 - 0.04 x10(3)/[facility] LABORATORY Specimen Anatomical Collection Method Collection Time Receive d Time (Source) Location / / Volume Laterality Blood specimen 09/10/2018 2:45 AM 019 2:50 (specimen) EDT AM EDT Resulting Agency Comment Spec In Lab Thom Velasquez MD HEMATOLOGY ORDERABLES Performing Organization Address City/State/ZIP Code Phon e Number [place] [id number] HOS[address] LAB[address]ORY Drive (ABNORMAL) Hemogram (09/10/2018 2:45 AM EDT) Analysis Performed At Patho logist Time Signature WBC 14.5 (H) 4.0 - 9.5 [place] x10(3)/[facility] LABORATORY RBC 3.69 (L) 4.00 - [place] 5.21 [facility] x10(6)/[facility] LABORATORY Hemoglobin 11.2 (L) 11.7 - [place] 15.5 gm/dL [facility] Hematocrit 33.8 (L) 35.7 - [place] 45.8 % [facility] MCV 91.6 82.6 - [facility] 94.4 [facility] LABORATORY MCH 30.4 27.1 - [employer] 32.0 pg [facility] MCHC 33.1 31.7 - [place] 35.0 gm/dL [facility] Platelets 244 145 - 357 [facility] LABORATORY RDWSD 47.9 (H) 37.0 - [place] 46.0 [facility] LABORATORY RDWCV 14.3 (H) 11.5 - [place] 14.1 % [facility] MPV 11.4 7.6 - 12.9 [place] [facility] LABORATORY nRBC % Auto 0.0 % [facility] nRBC Abs Auto 0.000 0.000 - [place] 0.000 [facility] x10(3)/[facility] LABORATORY Specimen Anatomical Collection Method Collection Time Receive d Time (Source) Location / / Volume Laterality Blood specimen 09/10/2018 2:45 AM 019 2:50 (specimen) EDT AM EDT Resulting Agency Comment Spec In Lab Thom Velasquez MD HEMATOLOGY ORDERABLES Performing Organization Address City/State/ZIP Code Phon e Number [address] Magnesium (09/10/2018 2:45 AM EDT) P athologist Signature Magnesium 0.90 0.69 - 1.07 [facility] mmol/L [facility] Specimen Anatomical Collection Method Collection Time Receive d Time (Source) Location / / Volume Laterality Blood specimen 09/10/2018 2:45 AM 019 2:50 (specimen) EDT AM EDT Resulting Agency Comment Spec In Lab Unique Moody MD CHEMISTRY ORDERABLES Performing Organization Address City/State/[place] [address] (ABNORMAL) BMP w/fasting Glucose (09/10/2018 2:45 AM EDT) athologist Signature Glucose 105 (H) 65 - 99 [facility] Fasting mg/dL [facility] Comment: ?Fasting* Glucose Interpretive C riteria [...] of Diabetes Mellitus, Position Statement from the [place] [employer]. ??Diabete s Care, Volume 33, Supplement 1, Apr 2009 BUN 44 (H) 8 - 18 mg/dL [facility] LABORATORY Creatinine 2.22 (H) 0.70 - 1.20 mg/dL [facility] LABORATORY Sodium 145 135 - 145 mmol/L [facility] [...] estions. Chloride 103 98 - 107 mmol/L [facility] CO2 25 22 - 31 mmol/L [facility] Anion Gap 17 (H) 5 - 15 mmol/L [facility] Calcium 8.8 8.5 - 10.5 mg/dL [facility] Estimated GFR 22 (L) >=60 mL/min/1.73 m?? [facility] Comment: The eGFR was calculated using the CKD-EP I equation. As with all creatinine based estimates of kidney function, eGFR values calculated with the CKD-EPI equation are not accurate in patients wi th acute kidney failure, extremes of body mass or the acutely ill. [email or web address] NORMANnk eGFR 25 (L) >=60 mL/min/1.73 m?? [facility] Comment: The eGFR was calculated using the CKD-EP I equation. As with all creatinine based estimates of kidney function, eGFR values calculated with the CKD-EPI equation are not accurate in patients wi th acute kidney failure, extremes of body mass or the acutely ill. [email or web address] NORMANnkf Specimen Anatomical Collection Method Collection Time Receive d Time (Source) Location / / Volume Laterality Blood specimen 09/10/2018 2:45 AM 019 2:50 (specimen) EDT AM EDT Resulting Agency Comment Spec In Lab Unique Moody MD CHEMISTRY ORDERABLES Performing Organization Address City/State/ZIP Code Phon e Number [place] [id number] HOSPITAL LAB[address]ATORY Drive (ABNORMAL) Differential, Automated (09/09/2018 2:50 AM EDT) [facility] Method Time Signature Neutrophils % 82.7 % [facility] Neutr Abs (ANC) 15.59 (H) 1.70 - [facility] 6.10 [facility] x10(3)/[facility] LABORATORY Lymphocytes % 6.1 % [facility] Lymphocytes Abs 1.2 0.9 - 3.2 [facility] x10(3)/[facility] LABORATORY Monocytes % 10.1 % [facility] Monocyte Abs 1.9 (H) 0.3 - 0.9 [facility] x10(3)/[facility] LABORATORY Eosinophils % 0.1 % [facility] Eosinophils Abs 0.0 0.0 - 0.4 [facility] x10(3)/[facility] LABORATORY Basophils % 0.3 % [facility] Basophils Abs 0.0 0.0 - 0.1 [facility] x10(3)/[facility] LABORATORY Immature Gran % 0.70 % [facility] Comment: Immature granulocytes(IG's)percentage an d absolute count will include metamyelocytes, myelocytes, and promyelo cytes. Blood smears from CBCs yielding IG's will be scanned manually for concor dance. If this scan disagrees with the automated IG or if promyelocytes are not ed, a manual differential will be performed. Blanca Gran Abs 0.14 (H) 0.00 - 0.04 x10(3)/[facility] LABORATORY Specimen Anatomical Collection Method Collection Time Receive d Time (Source) Location / / Volume Laterality Blood specimen 09/09/2018 2:50 AM 019 2:54 (specimen) EDT AM EDT Resulting Agency Comment Spec In Lab Leah Cline MD HEMATOLOGY ORDERABLES Performing Organization Address City/State/ZIP Code Phon e Number [place] [phone] HOSPITAL LABORATORY Drive (ABNORMAL) Hemogram (09/09/2018 2:50 AM EDT) Analysis Performed At Patho logist Time Signature WBC 18.8 (H) 4.0 - 9.5 [facility] x10(3)/[facility] LABORATORY RBC 3.89 (L) 4.00 - [facility] 5.21 [facility] x10(6)/[facility] LABORATORY Hemoglobin 11.9 11.7 - [facility] 15.5 gm/dL [facility] Hematocrit 34.6 (L) 35.7 - [facility] 45.8 % [facility] MCV 88.9 82.6 - [facility] 94.4 fL [facility] MCH 30.6 27.1 - [facility] 32.0 pg [facility] MCHC 34.4 31.7 - ZAKIA ZHANG 35.0 gm/dL [facility] Platelets 223 145 - 357 ZAKIA ZHANG x10(3)/[facility] LABORATORY RDWSD 44.3 37.0 - ZAKIA ZHANG 46.0 [facility] LABORATORY RDWCV 13.8 11.5 - ZAKIA ZHANG 14.1 % [facility] MPV 11.1 7.6 - 12.9 [facility] VICENT[facility] LABORATORY nRBC % Auto 0.0 % [facility] nRBC Abs Auto 0.000 0.000 - ZAKIA ZHANG 0.000 [facility] x10(3)/[facility] LABORATORY Specimen Anatomical Collection Method Collection Time Receive d Time (Source) Location / / Volume Laterality Blood specimen 09/09/2018 2:50 AM 019 2:54 (specimen) EDT AM EDT Resulting Agency Comment Spec In Lab Leah Cline MD HEMATOLOGY ORDERABLES Performing Organization Address City/[facility]/[place] [address] Magnesium (09/09/2018 2:50 AM EDT) P athologist Signature Magnesium 0.94 0.69 - 1.07 [facility] mmol/L [facility] Specimen Anatomical Collection Method Collection Time Receive d Time (Source) Location / / Volume Laterality Blood specimen 09/09/2018 2:50 AM 019 2:54 (specimen) EDT AM EDT Resulting Agency Comment Spec In Lab Unique Moody MD CHEMISTRY ORDERABLES Performing Organization Address City/[facility]/ZIP Code Phon e Number [address] (ABNORMAL) BMP w/fasting Glucose (09/09/2018 2:50 AM EDT) P athologist Signature Glucose 110 (H) 65 - 99 [facility] Fasting mg/dL [facility] Comment: ?Fasting* Glucose Interpretive C riteria [...] of Diabetes Mellitus, Position Statement from the [place] [employer]. ??Diabete s Care, Volume 33, Supplement 1, Apr 2009 BUN 44 (H) 8 - 18 mg/dL [facility] Creatinine 2.42 (H) 0.70 - 1.20 mg/dL [facility] LABORATORY Sodium 140 135 - 145 mmol/L [facility] Potassium 4.3 3.5 - 5.0 mmol/L [facility] Comment: Please note: ??Patients with WBC >100,00 0 may have falsely elevated Potassium levels. ??For accurate Potassium quantif ication in these patients send serum separator tube (gold top) for subsequent determinations. ??Contact the Clinical Chemistry Laboratory if there are any qu estions. Chloride 100 98 - 107 mmol/L [facility] CO2 23 22 - 31 mmol/L [facility] Anion Gap 17 (H) 5 - 15 mmol/L [facility] Calcium 8.6 8.5 - 10.5 mg/dL [facility] Estimated GFR 20 (L) >=60 mL/min/1.73 m?? [facility] Comment: The eGFR was calculated using the CKD-EP I equation. As with all creatinine based estimates of kidney function, eGFR values calculated with the CKD-EPI equation are not accurate in patients wi th acute kidney failure, extremes of body mass or the acutely ill. [email or web address] eGFR 23 (L) >=60 mL/min/1.73 m?? [facility] Comment: The eGFR was calculated using the CKD-EP I equation. As with all creatinine based estimates of kidney function, eGFR values calculated with the CKD-EPI equation are not accurate in patients wi th acute kidney failure, extremes of body mass or the acutely ill. [email or web address] Specimen Anatomical Collection Method Collection Time Receive d Time (Source) Location / / Volume Laterality Blood specimen 09/09/2018 2:50 AM 019 2:54 (specimen) EDT AM EDT Resulting Agency Comment Spec In Lab Unique Moody MD CHEMISTRY ORDERABLES Performing Organization Address City/[facility]/ZIP Code Phon e Number [address] Scan, Peripheral Blood (09/08/2018 3:00 PM EDT) [facility] [email or web address] Method Time Signature Plat Estimate Normal [facility] RBC Morphology Abnormal [facility] Ovalocytes 6-10 /HPF [facility] [place] Cells 1-5 /HPF [facility] Specimen Anatomical Collection Method Collection Time Receive d Time (Source) Location / / Volume Laterality Blood specimen 09/08/2018 3:00 PM 019 3:19 (specimen) EDT PM EDT Resulting Agency Comment Spec In Lab Corwin Hawk MD HEMATOLOGY ORDERABLES Performing Organization Address City/[facility]/ZIP Code Phon e Number [address] (ABNORMAL) Differential, Automated (09/08/2018 3:00 PM EDT) [facility] [email or web address] Method Time Signature Neutrophils % 87.1 % [facility] Neutr Abs (ANC) 18.84 (H) 1.70 - [facility] 6.10 [facility] x10(3)/[facility] [place] [facility] LABORATORY Lymphocytes % 3.5 % [facility] Lymphocytes Abs 0.8 (L) 0.9 - 3.2 [facility] x10(3)/[facility] LABORATORY Monocytes % 8.2 % [facility] Monocyte Abs 1.8 (H) 0.3 - 0.9 [facility] x10(3)/[facility] LABORATORY Eosinophils % 0.0 % [facility] Eosinophils Abs 0.0 0.0 - 0.4 [facility] x10(3)/[facility] LABORATORY Basophils % 0.2 % [facility] Basophils Abs 0.0 0.0 - 0.1 [facility] x10(3)/[facility] LABORATORY Immature Gran % 1.00 % [facility] Comment: Immature granulocytes(IG's)percentage an d absolute count will include metamyelocytes, myelocytes, and promyelo cytes. Blood smears from CBCs yielding IG's will be scanned manually for concor dance. If this scan disagrees with the automated IG or if promyelocytes are not ed, a manual differential will be performed. Blanca Gran Abs 0.22 (H) 0.00 - 0.04 x10(3)/[facility] LABORATORY Specimen Anatomical Collection Method Collection Time Receive d Time (Source) Location / / Volume Laterality Blood specimen 09/08/2018 3:00 PM 019 3:19 (specimen) EDT PM EDT Resulting Agency Comment Spec In Lab Corwin Hawk MD HEMATOLOGY ORDERABLES Performing Organization Address City/State/[place] [address] (ABNORMAL) Hemogram (09/08/2018 3:00 PM EDT) Analysis Performed At Patho logist Time Signature WBC 21.6 (H) 4.0 - 9.5 [facility] x10(3)/[facility] LABORATORY RBC 3.80 (L) 4.00 - [facility] 5.21 [facility] x10(6)/[facility] LABORATORY Hemoglobin 11.5 (L) 11.7 - [facility] 15.5 gm/dL [facility] Hematocrit 33.8 (L) 35.7 - [facility] 45.8 % [facility] MCV 88.9 82.6 - [facility] 94.4 fL [facility] MCH 30.3 27.1 - [facility] 32.0 pg [facility] MCHC 34.0 31.7 - [facility] 35.0 gm/dL [facility] Platelets 249 145 - 357 [facility] x10(3)/[facility] LABORATORY RDWSD 43.1 37.0 - [facility] 46.0 [facility] LABORATORY RDWCV 13.2 11.5 - [facility] 14.1 % [facility] MPV 11.8 7.6 - 12.9 [facility] LABORATORY nRBC % Auto 0.0 % [facility]ORATORY nRBC Abs Auto 0.000 0.000 - [facility] 0.000 [facility] x10(3)/[facility] LABORATORY Specimen Anatomical Collection Method Collection Time Receive d Time (Source) Location / / Volume Laterality Blood specimen 09/08/2018 3:00 PM 019 3:19 (specimen) EDT PM EDT Resulting Agency Comment Spec In Lab Corwin Hawk MD HEMATOLOGY ORDERABLES Performing Organization Address City/State/[place] [address] (ABNORMAL) Basic Metabolic Panel (non-fasting) (09/08/2018 3:00 PM EDT) P athologist Signature Glucose Lvl 129 65 - 199 [facility] mg/dL [facility] Comment: Diabetes: >=200 mg/dL plus symp toms BUN 45 (H) 8 - 18 mg/dL [facility] Creatinine 2.67 (H) 0.70 - 1.20 mg/dL [facility] LABORATORY Sodium 137 135 - 145 mmol/L [facility]ORY Potassium 4.3 3.5 - 5.0 mmol/L [facility] Comment: Please note: ??Patients with WBC >100,00 0 may have falsely elevated Potassium levels. ??For accurate Potassium quantif ication in these patients send serum separator tube (gold top) for subsequent determinations. ??Contact the Clinical Chemistry Laboratory if there are any qu estions. Chloride 97 (L) 98 - 107 mmol/L [facility] CO2 23 22 - 31 mmol/L [facility] Anion Gap 17 (H) 5 - 15 mmol/L [facility] Calcium 8.6 8.5 - 10.5 mg/dL [facility]OR[facility]ORY Estimated GFR 18 (L) >=60 mL/min/1.73 m?? [facility] Comment: The eGFR was calculated using the CKD-EP I equation. As with all creatinine based estimates of kidney function, eGFR values calculated with the CKD-EPI equation are not accurate in patients wi th acute kidney failure, extremes of body mass or the acutely ill. [email or web address]/[facility] NORMANnkf eGFR 20 (L) >=60 mL/min/1.73 m?? [facility] Comment: The eGFR was calculated using the CKD-EP I equation. As with all creatinine based estimates of kidney function, eGFR values calculated with the CKD-EPI equation are not accurate in patients wi th acute kidney failure, extremes of body mass or the acutely ill. [email or web address] NORMANnkf Specimen Anatomical Collection Method Collection Time Receive d Time (Source) Location / / Volume Laterality Blood specimen 09/08/2018 3:00 PM 019 3:19 (specimen) EDT PM EDT Resulting Agency Comment Spec In Lab Wilman Randolph MD CHEMISTRY ORDERABLES Performing Organization Address City/State/ZIP Code Phon e Number [place] [id number] HOSPITAL LABORATORY Drive (ABNORMAL) Differential, Automated (09/08/2018 6:30 AM EDT) [facility] Method Time Signature Neutrophils % 91.0 % [facility] Neutr Abs (ANC) 20.39 (H) 1.70 - [facility] 6.10 [facility] x10(3)/[facility] [place] [facility] LABORATORY Lymphocytes % 2.5 % [facility] Lymphocytes Abs 0.6 (L) 0.9 - 3.2 [facility] x10(3)/[facility] LABORATORY Monocytes % 5.7 % [facility] Monocyte Abs 1.3 (H) 0.3 - 0.9 [facility] x10(3)/[facility] LABORATORY Eosinophils % 0.0 % [facility] Eosinophils Abs 0.0 0.0 - 0.4 [facility] x10(3)/[facility] LABORATORY Basophils % 0.1 % [facility] Basophils Abs 0.0 0.0 - 0.1 [facility] x10(3)/[facility] LABORATORY Immature Gran % 0.70 % [facility] Comment: Immature granulocytes(IG's)percentage an d absolute count will include metamyelocytes, myelocytes, and promyelo cytes. Blood smears from CBCs yielding IG's will be scanned manually for concor dance. If this scan disagrees with the automated IG or if promyelocytes are not ed, a manual differential will be performed. Blanca Gran Abs 0.15 (H) 0.00 - 0.04 x10(3)/[facility] LABORATORY Specimen Anatomical Collection Method Collection Time Receive d Time (Source) Location / / Volume Laterality Blood specimen 09/08/2018 6:30 AM 019 6:46 (specimen) EDT AM EDT Resulting Agency Comment Spec In Lab Leah Cline MD HEMATOLOGY ORDERABLES Performing Organization Address City/State/[place] [address] (ABNORMAL) Hemogram (09/08/2018 6:30 AM EDT) Analysis Performed At Patho logist Time Signature WBC 22.4 (H) 4.0 - 9.5 [facility] x10(3)/[facility] LABORATORY RBC 3.77 (L) 4.00 - [facility] 5.21 [facility] x10(6)/[facility] LABORATORY Hemoglobin 11.6 (L) 11.7 - [facility] 15.5 gm/dL [facility] Hematocrit 33.5 (L) 35.7 - [facility] 45.8 % [facility] MCV 88.9 82.6 - [facility] 94.4 fL [facility] MCH 30.8 27.1 - [facility] 32.0 pg [facility] MCHC 34.6 31.7 - [facility] 35.0 gm/dL [facility] Platelets 216 145 - 357 [facility] x10(3)/[facility] LABORATORY RDWSD 43.0 37.0 - [facility] 46.0 [facility] LABORATORY RDWCV 13.2 11.5 - [facility] 14.1 % [facility] MPV 11.1 7.6 - 12.9 [facility] LABORATORY nRBC % Auto 0.0 % [facility] nRBC Abs Auto 0.000 0.000 - [facility] 0.000 [facility] x10(3)/[facility] LABORATORY Specimen Anatomical Collection Method Collection Time Receive d Time (Source) Location / / Volume Laterality Blood specimen 09/08/2018 6:30 AM 019 6:46 (specimen) EDT AM EDT Resulting Agency Comment Spec In Lab Leah Cline MD HEMATOLOGY ORDERABLES Performing Organization Address City/[facility]/ZIP Code Phon e Number [address] Magnesium (09/08/2018 5:15 AM EDT) athologist Signature Magnesium 1.04 0.69 - 1.07 [facility] mmol/L [facility] Specimen Anatomical Collection Method Collection Time Receive d Time (Source) Location / / Volume Laterality Blood specimen 09/08/2018 5:15 AM 019 5:32 (specimen) EDT AM EDT Resulting Agency Comment Spec In Lab Unique Moody MD CHEMISTRY ORDERABLES Performing Organization Address City/[facility]/[place] [address] (ABNORMAL) BMP w/fasting Glucose (09/08/2018 5:15 AM EDT) P athologist Signature Glucose 138 (H) 65 - 99 [facility] Fasting mg/dL [facility] Comment: ?Fasting* Glucose Interpretive C riteria [...] of Diabetes Mellitus, Position Statement from the [place] [employer]. ??Diabete s Care, Volume 33, Supplement 1, Apr 2009 BUN 42 (H) 8 - 18 mg/dL [facility] Creatinine 2.69 (H) 0.70 - 1.20 mg/dL [facility] LABORATORY Sodium 138 135 - 145 mmol/L [facility] Potassium 4.8 3.5 - 5.0 mmol/L [facility] Comment: Please note: ??Patients with WBC >100,00 0 may have falsely elevated Potassium levels. ??For accurate Potassium quantif ication in these patients send serum separator tube (gold top) for subsequent determinations. ??Contact the Clinical Chemistry Laboratory if there are any qu estions. Chloride 96 (L) 98 - 107 mmol/L [facility] CO2 26 22 - 31 mmol/L [facility] Anion Gap 16 (H) 5 - 15 mmol/L [facility] Calcium 8.9 8.5 - 10.5 mg/dL [facility] Estimated GFR 17 (L) >=60 mL/min/1.73 m?? [facility] Comment: The eGFR was calculated using the CKD-EP I equation. As with all creatinine based estimates of kidney function, eGFR values calculated with the CKD-EPI equation are not accurate in patients wi th acute kidney failure, extremes of body mass or the acutely ill. [email or web address] eGFR 20 (L) >=60 mL/min/1.73 m?? [facility] Comment: The eGFR was calculated using the CKD-EP I equation. As with all creatinine based estimates of kidney function, eGFR values calculated with the CKD-EPI equation are not accurate in patients wi th acute kidney failure, extremes of body mass or the acutely ill. [email or web address]/[facility]f Specimen Anatomical Collection Method Collection Time Receive d Time (Source) Location / / Volume Laterality Blood specimen 09/08/2018 5:15 AM 019 5:32 (specimen) EDT AM EDT Resulting Agency Comment Spec In Lab Unique Moody MD CHEMISTRY ORDERABLES Performing Organization Address City/State/ZIP Code Phon e Number [address] Lactate, whole blood, send to lab (Leb/CGP) (09/08/2018 5:15 AM EDT) P athologist Signature Lactate WB 1.0 0.5 - 2.2 [facility] mmol/L [facility] Specimen Anatomical Collection Method Collection Time Receive d Time (Source) Location / / Volume Laterality Blood specimen 09/08/2018 5:15 AM 019 5:32 (specimen) EDT AM EDT Resulting Agency Comment Spec In Lab Wilman Randolph MD CHEMISTRY ORDERABLES Performing Organization Address City/State/[place] [address] XR Abdomen 1 view [...] abdominal radiograph 2018 at 2045 hours. COMPARISON: Machine Set Up view from CT abdomen 1 05/16/2017. FINDINGS: [...] abdominal radiograph 2018 at 2045 hours. COMPARISON: Machine Set Up view from CT abdomen 1 05/16/2017. FINDINGS: [...] report, please contact th e number below. Wilman Randolph MD IMG DX ORDERABLES Scan, Peripheral Blood (09/07/2018 8:35 PM EDT) [facility] Method Time Signature Plat Estimate Normal [facility] RBC Morphology Abnormal [facility] Ovalocytes 1-5 /HPF [facility] [place] Cells 1-5 /HPF [facility] Specimen Anatomical Collection Method Collection Time Receive d Time (Source) Location / / Volume Laterality Blood specimen 09/07/2018 8:35 PM 019 8:47 (specimen) EDT PM EDT Resulting Agency Comment Spec In Lab Leah Cline MD HEMATOLOGY ORDERABLES Performing Organization Address City/State/ZIP Code Phon e Number [address] Lactate, whole blood, send to lab (Leb/CGP) (09/07/2018 8:35 PM EDT) P athologist Signature Lactate WB 1.0 0.5 - 2.2 [facility] mmol/L [facility] Specimen Anatomical Collection Method Collection Time Receive d Time (Source) Location / / Volume Laterality Blood specimen 09/07/2018 8:35 PM 019 8:46 (specimen) EDT PM EDT Resulting Agency Comment Spec In Lab Wilman Randolph MD CHEMISTRY ORDERABLES Performing Organization Address City/[facility]/ZIP Code Phon e Number [address] (ABNORMAL) Differential, Automated (09/07/2018 8:35 PM EDT) Patholo gist Method Time Signature Neutrophils % 87.9 % [facility] LABORATORY Neutr Abs (ANC) 21.24 (H) 1.70 - [facility] 6.10 [facility] x10(3)/[facility] L LABORATORY Lymphocytes % 2.8 % [facility] LABORATORY Lymphocytes Abs 0.7 (L) 0.9 - 3.2 [facility] x10(3)/[facility] LABORATORY Monocytes % 5.7 % [facility] LABORATORY Monocyte Abs 1.4 (H) 0.3 - 0.9 [facility] x10(3)/[facility] LABORATORY Eosinophils % 1.4 % [facility] LABORATORY Eosinophils Abs 0.3 0.0 - 0.4 [facility] x10(3)/[facility] LABORATORY Basophils % 0.5 % [facility] LABORATORY Basophils Abs 0.1 0.0 - 0.1 [facility] x10(3)/[facility] LABORATORY Immature Gran % 1.70 % [facility] LABORATORY Comment: Immature granulocytes(IG's)percentage an d absolute count will include metamyelocytes, myelocytes, and promyelo cytes. Blood smears from CBCs yielding IG's will be scanned manually for concor dance. If this scan disagrees with the automated IG or if promyelocytes are not ed, a manual differential will be performed. Blanca Gran Abs 0.41 (H) 0.00 - 0.04 x10(3)/[facility] LABORATORY Specimen Anatomical Collection Method Collection Time Receive d Time (Source) Location / / Volume Laterality Blood specimen 09/07/2018 8:35 PM 019 8:47 (specimen) EDT PM EDT Resulting Agency Comment Spec In Lab Leah Cline MD HEMATOLOGY ORDERABLES Performing Organization Address City/State/[place] [address] (ABNORMAL) Hemogram (09/07/2018 8:35 PM EDT) Analysis Performed At Patho logist Time Signature WBC 24.2 (H) 4.0 - 9.5 [facility] x10(3)/[facility] LABORATORY RBC 4.20 4.00 - [facility] 5.21 [facility] x10(6)/[facility] LABORATORY Hemoglobin 12.7 11.7 - [facility] 15.5 gm/dL [facility] LABORATORY Hematocrit 36.6 35.7 - [facility] 45.8 % [facility] LAB[facility]ATORY MCV 87.1 82.6 - [facility] 94.4 [facility] LABORATORY MCH 30.2 27.1 - [facility] 32.0 pg [facility] LABORATORY MCHC 34.7 31.7 - [facility] 35.0 gm/dL [facility] LABORATORY Platelets 223 145 - 357 [facility] x10(3)/[facility] LABORATORY RDWSD 42.2 37.0 - [facility] 46.0 [facility] LABORATORY RDWCV 13.2 11.5 - [facility] 14.1 % [facility] LABORATORY MPV 11.1 7.6 - 12.9 [facility] LABORATORY nRBC % Auto 0.0 % [facility] LABORATORY nRBC Abs Auto 0.000 0.000 - [facility] 0.000 [facility] x10(3)/[facility] LABORATORY Specimen Anatomical Collection Method Collection Time Receive d Time (Source) Location / / Volume Laterality Blood specimen 09/07/2018 8:35 PM 019 8:47 (specimen) EDT PM EDT Resulting Agency Comment Spec In Lab Leah Cline MD HEMATOLOGY ORDERABLES Performing Organization Address City/State/[place] [address] (ABNORMAL) Basic Metabolic Panel (non-fasting) (09/07/2018 8:35 PM EDT) athologist Signature Glucose Lvl 199 65 - 199 [facility] mg/dL [facility] LABORATORY Comment: Diabetes: >=200 mg/dL plus symp toms BUN 40 (H) 8 - 18 mg/dL [facility] LABORATORY Creatinine 2.85 (H) 0.70 - 1.20 mg/dL [facility] LABORATORY Sodium 137 135 - 145 mmol/L [facility] LABORATORY Potassium 4.5 3.5 - 5.0 mmol/L [facility] LABORATORY Comment: Please note: ??Patients with WBC >100,00 0 may have falsely elevated Potassium levels. ??For accurate Potassium quantif ication in these patients send serum separator tube (gold top) for subsequent determinations. ??Contact the Clinical Chemistry Laboratory if there are any qu estions. Chloride 96 (L) 98 - 107 mmol/L [facility] LABORATORY CO2 25 22 - 31 mmol/L [facility] LABORATORY Anion Gap 16 (H) 5 - 15 mmol/L [facility] LABORATORY Calcium 8.8 8.5 - 10.5 mg/dL [facility] LABORATORY Estimated GFR 16 (L) >=60 mL/min/1.73 m?? [facility] LABORATORY Comment: The eGFR was calculated using the CKD-EP I equation. As with all creatinine based estimates of kidney function, eGFR values calculated with the CKD-EPI equation are not accurate in patients wi th acute kidney failure, extremes of body mass or the acutely ill. [email or web address]/[facility] NORMANnkf eGFR 19 (L) >=60 mL/min/1.73 m?? [facility] LABORATORY Comment: The eGFR was calculated using the CKD-EP I equation. As with all creatinine based estimates of kidney function, eGFR values calculated with the CKD-EPI equation are not accurate in patients wi th acute kidney failure, extremes of body mass or the acutely ill. [email or web address] Specimen Anatomical Collection Method Collection Time Receive d Time (Source) Location / / Volume Laterality Blood specimen 09/07/2018 8:35 PM 019 8:47 (specimen) EDT PM EDT Resulting Agency Comment Spec In Lab Wilman Randoplh MD CHEMISTRY ORDERABLES Performing Organization Address City/[facility]/ZIP Code Phon e Number [address] POCT Glucose (09/07/2018 7:59 PM EDT) athologist Signature POC Glucose 162 65 - 199 [facility] mg/dL [facility] LABORATORY Comment: Supplemental ranges: <140 mg/dL before meals <180 mg/dL all other times of the day Specimen Anatomical Collection Method Collection Time Receive d Time (Source) Location / / Volume Laterality Blood specimen 09/07/2018 7:59 PM 019 7:59 (specimen) EDT PM EDT Wilman Randolph MD POINT OF CARE TEST ORDERABLE S Performing Organization Address City/[facility]/[place] [address] Prepare RBC (09/07/2018 3:55 PM EDT) athologist Signature Dispensed? Yes [facility] LABORATORY Specimen Anatomical Collection Method Collection Time Receive d Time (Source) Location / / Volume Laterality Blood specimen 09/07/2018 3:55 PM 019 3:54 (specimen) EDT PM EDT Resulting Agency Comment Spec In Lab Wilman Randolph MD BLOOD BANK ORDERABLES Performing Organization Address City/[facility]/[place] [address] (ABNORMAL) BLOOD GAS 2 ARTERIAL (09/07/2018 3:49 PM EDT) Analysis Performed At Patho logist Time Signature pH Art 7.45 7.35 - [facility] 7.45 [facility] LABORATORY pCO2 Art 39 35 - 45 [facility] mmHg [facility] LABORATORY pO2 Art 86 85 - 104 [facility] LABORATORY HCO3 Art 26.4 (H) 20.0 - [facility] 26.0 [facility] mmol/L [facility] LABORATORY BE Art 2.4 -3.0 - 3.0 [facility] mmol/L [facility] LABORATORY Hgb Blood Gas 12.4 11.7 - [facility] 15.5 gm/dL [facility] O2HB Art 95.4 94.0 - [facility] 97.0 % [facility] LABORATORY COHB Art 0.9 % [facility] LABORATORY Comment: Nonsmokers: 0.5-1.5% COHB Smokers: Variable, but usually less than 10% Toxic: 20-30% COHB Lethal: Greater than 60% COHB METHB Art 0.3 <=1.5 % [facility] LABORATORY Na Whole Blood 121 (L) 135 - 145 mmol/L [facility] LABORATORY K Whole Blood 3.5 3.5 - 5.0 mmol/L [facility] LABORATORY Comment: Please note: Patients with WBC >100,000 may have falsely elevated Potassium levels. Contact the Clinical Chemistry L aboratory if there are any questions. ICa Whole Blood 1.15 1.15 - 1.33 mmol/L [facility] LABORATORY Comment: Note: ??Total bilirubin higher than 20 m g/dL may lead to falsely low ionized calcium. CL Whole Blood 98 98 - 107 mmol/L [facility] LABORATORY Gluc Whole Bld 113 65 - 199 mg/dL [facility] LABORATORY Comment: Diabetes: >=200 mg/dL plus symp toms. Lactate WB 1.1 0.5 - 2.2 mmol/L [facility] LABORATORY FIO2 Art 60 % [facility] LABORATORY PF Ratio Art 143 [facility] LABORATORY Specimen Anatomical Collection Method Collection Time Receive d Time (Source) Location / / Volume Laterality Blood specimen 09/07/2018 3:49 PM 019 3:49 (specimen) EDT PM EDT Wilman Randolph MD CHEMISTRY ORDERABLES Performing Organization Address City/[facility]/ZIP Code Phon e Number [address] ABORH Recheck Status (09/07/2018 7:46 AM EDT) [facility] Method Time Signature ABORH Type Order [facility] LABORATORY Specimen Anatomical Collection Method Collection Time Receive d Time (Source) Location / / Volume Laterality Blood specimen 09/07/2018 7:46 AM 019 7:46 (specimen) EDT AM EDT Resulting Agency Comment Spec In Lab Clinton Collins MD BLOOD BANK ORDERABLES Performing Organization Address City/[facility]/[place] [address] Antibody screen (09/07/2018 7:46 AM EDT) [facility] Method Time Signature Ab Screen Negative [facility] LABORATORY Expires at 09/10/2018 [facility] [id number] on: [facility] LABORATORY Specimen Anatomical Collection Method Collection Time Receive d Time (Source) Location / / Volume Laterality Blood specimen 09/07/2018 7:46 AM 019 7:46 (specimen) EDT AM EDT Resulting Agency Comment Spec In Lab Clinton Collins MD BLOOD BANK ORDERABLES Performing Organization Address City/[facility]/[place] [address] ABO/Rh Typing (09/07/2018 7:46 AM EDT) P athologist Signature ABORh Type A Pos [facility] LABORATORY Specimen Anatomical Collection Method Collection Time Receive d Time (Source) Location / / Volume Laterality Blood specimen 09/07/2018 7:46 AM 019 7:46 (specimen) EDT AM EDT Resulting Agency Comment Spec In Lab Clinton Collins MD BLOOD BANK ORDERABLES Performing Organization Address City/[facility]/[place] [address] (ABNORMAL) Differential, Automated (09/07/2018 12:30 AM EDT) [facility] Method Time Signature Neutrophils % 65.7 % [facility] LABORATORY Neutr Abs (ANC) 7.68 (H) 1.70 - [facility] 6.10 [facility] x10(3)/[facility] LABORATORY Lymphocytes % 13.2 % [facility] LABORATORY Lymphocytes Abs 1.5 0.9 - 3.2 [facility] x10(3)/[facility] LABORATORY Monocytes % 11.6 % [facility] LABORATORY Monocyte Abs 1.4 (H) 0.3 - 0.9 [facility] x10(3)/[facility] LABORATORY Eosinophils % 8.3 % [facility] LABORATORY Eosinophils Abs 1.0 (H) 0.0 - 0.4 [facility] x10(3)/[facility] LABORATORY Basophils % 0.6 % [facility] LABORATORY Basophils Abs 0.1 0.0 - 0.1 [facility] x10(3)/[facility] LABORATORY Immature Gran % 0.60 % [facility] LABORATORY Comment: Immature granulocytes(IG's)percentage an d absolute count will include metamyelocytes, myelocytes, and promyelo cytes. Blood smears from CBCs yielding IG's will be scanned manually for concor dance. If this scan disagrees with the automated IG or if promyelocytes are not ed, a manual differential will be performed. Blanca Gran Abs 0.07 (H) 0.00 - 0.04 x10(3)/[facility] LABORATORY Specimen Anatomical Collection Method Collection Time Receive d Time (Source) Location / / Volume Laterality Blood specimen 09/07/2018 12:30 9 (specimen) AM EDT 12:54 AM EDT Resulting Agency Comment Spec In Lab Rhea Cevallos MD HEMATOLOGY ORDERABLES Performing Organization Address City/State/[place] [address] (ABNORMAL) Hemogram (09/07/2018 12:30 AM EDT) Analysis Performed At [facility] logist Time Signature WBC 11.7 (H) 4.0 - 9.5 [facility] x[facility](3[facility] LABORATORY RBC 3.94 (L) 4.00 - [facility] 5.21 [facility] x10(6)/[facility] LABORATORY Hemoglobin 11.9 11.7 - [facility] 15.5 gm/dL [facility] LABORATORY Hematocrit 34.4 (L) 35.7 - [facility] 45.8 % [facility] LABORATORY MCV 87.3 82.6 - [facility] 94.4 [facility] LABORATORY MCH 30.2 27.1 - [facility] 32.0 pg [facility] LABORATORY MCHC 34.6 31.7 - [facility] 35.0 gm/dL [facility] LAB[facility]AT[facility] Platelets 223 145 - 357 [facility] x10(3)/[facility] LABORATORY RDWSD 41.9 37.0 - [facility] 46.0 [facility] LABORATORY RDWCV 13.1 11.5 - [facility] 14.1 % [facility] LABORATORY MPV 12.1 7.6 - 12.9 [facility] nRBC % Auto 0.0 % [facility] LABORATORY nRBC Abs Auto 0.000 0.000 - [facility] 0.000 [facility] x10(3)/[facility] LABORATORY Specimen Anatomical Collection Method Collection Time Receive d Time (Source) Location / / Volume Laterality Blood specimen 09/07/2018 12:30 9 (specimen) AM EDT 12:54 AM EDT Resulting Agency Comment Spec In Lab Rhea Cevallos MD HEMATOLOGY ORDERABLES Performing Organization Address City/State/[place] [address] Magnesium (09/07/2018 12:30 AM EDT) P athologist Signature Magnesium 0.84 0.69 - 1.07 [facility] mmol/L [facility] LABORATORY Specimen Anatomical Collection Method Collection Time Receive d Time (Source) Location / / Volume Laterality Blood specimen 09/07/2018 12:30 9 (specimen) AM EDT 12:53 AM EDT Resulting Agency Comment Spec In Lab Unique Moody MD CHEMISTRY ORDERABLES Performing Organization Address City/State/[place] [address] (ABNORMAL) BMP w/fasting Glucose (09/07/2018 12:30 AM EDT) P athologist Signature Glucose 112 (H) 65 - 99 [facility] Fasting mg/dL [facility] LABORATORY Comment: ?Fasting* Glucose Interpretive C riteria [...] of Diabetes Mellitus, Position Statement from the [place] [employer]. ??Diabete s Care, Volume 33, Supplement 1, Apr 2009 BUN 39 (H) 8 - 18 mg/dL [facility] LABORATORY Creatinine 2.51 (H) 0.70 - 1.20 mg/dL [facility] LABORATORY Sodium 136 135 - 145 mmol/L [facility] LABORATORY Potassium 4.4 3.5 - 5.0 mmol/L [facility] LABORATORY Comment: delta result rechecked-KLA Please note: ??Patients with WBC >100,00 0 may have falsely elevated Potassium levels. ??For accurate Potassium quantif ication in these patients send serum separator tube (gold top) for subsequent determinations. ??Contact the Clinical Chemistry Laboratory if there are any qu estions. Chloride 97 (L) 98 - 107 mmol/L [facility] LABORATORY CO2 27 22 - 31 mmol/L [facility]OR[facility] Anion Gap 12 5 - 15 mmol/L [facility] LABORATORY Calcium 8.5 8.5 - 10.5 mg/dL [facility] LABORATORY Estimated GFR 19 (L) >=60 mL/min/1.73 m?? [facility]ORY Comment: The eGFR was calculated using the CKD-EP I equation. As with all creatinine based estimates of kidney function, eGFR values calculated with the CKD-EPI equation are not accurate in patients wi th acute kidney failure, extremes of body mass or the acutely ill. [email or web address] eGFR 22 (L) >=60 mL/min/1.73 m?? [facility] LABOR[facility]ORY Comment: The eGFR was calculated using the CKD-EP I equation. As with all creatinine based estimates of kidney function, eGFR values calculated with the CKD-EPI equation are not accurate in patients wi th acute kidney failure, extremes of body mass or the acutely ill. [email or web address] Specimen Anatomical Collection Method Collection Time Receive d Time (Source) Location / / Volume Laterality Blood specimen 09/07/2018 12:30 9 (specimen) AM EDT 12:53 AM EDT Resulting Agency Comment Spec In Lab Unique Moody MD CHEMISTRY ORDERABLES Performing Organization Address City/State/ZIP Code Phon e Number [address] (ABNORMAL) Potassium (09/06/2018 5:10 PM EDT) athologist Signature Potassium 3.3 (L) 3.5 - 5.0 [facility] mmol/L [facility] Comment: Please note: ??Patients with WBC [...] Moody MD CHEMISTRY ORDERABLES Performing Organization Address City/[facility]/ZIP Code Phon e Number [address] Gold Tube HOLD (09/06/2018 5:10 PM EDT) P athologist Signature Gold Hold Sample in [facility]. [facility] LABOR[facility] Specimen Anatomical Collection Method Collection Time Receive d Time (Source) Location / / Volume Laterality Blood specimen 09/06/2018 5:10 PM 019 5:43 (specimen) EDT PM EDT Wilman Randolph MD CHEMISTRY ORDERABLES Performing Organization Address City/State/[place] [address] [facility] LABORATORY Drive XR Chest PA or AP [...] For questions regarding this report, please contact [facility] number below. ? Narrative 09/06/2018 5:00 PM [...] Component Value Ref Test Analysis Performed At [facility] gist Range Method Time Signature VB Text Department: Vascular Surgery Lab VASCUBASE Report Patient: [id number] (PRETTY HARMON) CPT: 03067 ICD10: Z01.818;I70.1 Referring Physician: WILMAN RANDOLPH ?? [...] Signature Glucose 226 (H) 65 - 99 [facility] Fasting mg/dL [facility] Comment: ?Fasting* Glucose Interpretive C riteria [...] of Diabetes Mellitus, Position Statement from the [place] [employer]. ??Diabete s Care, Volume 33, Supplement 1, Apr 2009 BUN 37 (H) 8 - 18 mg/dL [facility] LABORATORY Creatinine 2.34 (H) 0.70 - 1.20 mg/dL [facility] LABORATORY Sodium 136 135 - 145 mmol/L [facility] LABORATORY Potassium 2.9 (Critical) 3.5 [...] Chloride 96 (L) 98 - 107 mmol/L [facility]OR[facility]ORY CO2 26 22 - 31 mmol/L [facility] Anion Gap 14 5 - 15 mmol/L [facility] Calcium 8.3 (L) 8.5 - 10.5 mg/dL [facility] LABORATORY Estimated GFR 21 (L) >=60 mL/min/1.73 m?? [facility] Comment: The eGFR was calculated using the CKD-EP I equation. As with all creatinine based estimates of kidney function, eGFR values calculated with the CKD-EPI equation are not accurate in patients wi th acute kidney failure, extremes of body mass or the acutely ill. [email or web address]/[facility]f eGFR 24 (L) >=60 mL/min/1.73 m?? [facility] Comment: The eGFR was calculated using the CKD-EP I equation. As with all creatinine based estimates of kidney function, eGFR values calculated with the CKD-EPI equation are not accurate in patients wi th acute kidney failure, extremes of body mass or the acutely ill. [email or web address]/[facility] NORMANnkf Specimen Anatomical Collection Method Collection Time Receive d Time (Source) Location / / Volume Laterality Blood specimen 09/06/2018 8:55 AM 019 9:02 (specimen) EDT AM EDT Resulting Agency Comment Spec In Lab Tyron Kemp MD CHEMISTRY ORDERABLES Performing Organization Address City/State/ZIP Code Phon e Number [place] [id number] HOSPITAL LABORATORY Drive (ABNORMAL) Differential, Automated (09/06/2018 6:00 AM EDT) [facility] gist Method Time Signature Neutrophils % 64.3 % [facility] LABORATORY Neutr Abs (ANC) 6.80 (H) 1.70 - [facility] 6.10 [facility] x10(3)/[facility] LABORATORY Lymphocytes % 15.2 % [facility] LABORATORY Lymphocytes Abs 1.6 0.9 - 3.2 [facility] x10(3)/[facility] LABORATORY Monocytes % 10.5 % [facility] LABORATORY Monocyte Abs 1.1 (H) 0.3 - 0.9 [facility] x10(3)/[facility] LABORATORY Eosinophils % 8.6 % [facility] LABORATORY Eosinophils Abs 0.9 (H) 0.0 - 0.4 [facility] x10(3)/[facility] LABORATORY Basophils % 0.7 % [facility]ORATORY Basophils Abs 0.1 0.0 - 0.1 [facility] x10(3)/[facility] LABORATORY Immature Gran % 0.70 % [facility]ORY Comment: Immature granulocytes(IG's)percentage an d absolute count will include metamyelocytes, myelocytes, and promyelo cytes. Blood smears from CBCs yielding IG's will be scanned manually for concor dance. If this scan disagrees with the automated IG or if promyelocytes are not ed, a manual differential will be performed. Blanca Gran Abs 0.07 (H) 0.00 - 0.04 x10(3)/[facility] LABORATORY Specimen Anatomical Collection Method Collection Time Receive d Time (Source) Location / / Volume Laterality Blood specimen 09/06/2018 6:00 AM 019 6:14 (specimen) EDT AM EDT Resulting Agency Comment Spec In Lab Rhea Cevallos MD HEMATOLOGY ORDERABLES Performing Organization Address City/State/[place] [address] (ABNORMAL) Hemogram (09/06/2018 6:00 AM EDT) Analysis Performed At Patho logist Time Signature WBC 10.6 (H) 4.0 - 9.5 [facility] x10(3)/[facility] LABORATORY RBC 4.43 4.00 - [facility] 5.21 [facility] x10(6)/[facility] LABORATORY Hemoglobin 13.2 11.7 - [facility] 15.5 gm/dL [facility] Hematocrit 38.1 35.7 - [facility] 45.8 % [facility] MCV 86.0 82.6 - [facility] 94.4 [facility] LABORATORY MCH 29.8 27.1 - [place] [place] 32.0 pg [facility] LAB[facility]AT[facility] MCHC 34.6 31.7 - [facility] 35.0 gm/dL [facility] Platelets 228 145 - 357 [facility] x10(3)/[facility] LABORATORY RDWSD 41.4 37.0 - [facility] 46.0 [facility] RDWCV 13.2 11.5 - [facility] 14.1 % [facility] LABORATORY MPV 11.4 7.6 - 12.9 [facility] LABORATORY nRBC % Auto 0.0 % [facility] LABORATORY nRBC Abs Auto 0.000 0.000 - [facility] 0.000 [facility] x10(3)/[facility] LABORATORY Specimen Anatomical Collection Method Collection Time Receive d Time (Source) Location / / Volume Laterality Blood specimen 09/06/2018 6:00 AM 019 6:14 (specimen) EDT AM EDT Resulting Agency Comment Spec In Lab Rhea Cevallos MD HEMATOLOGY ORDERABLES Performing Organization Address City/[facility]/ZIP Code Phon e Number [address] Magnesium (09/06/2018 6:00 AM EDT) athologist Signature Magnesium 0.88 0.69 - 1.07 [facility] mmol/L [facility] Specimen Anatomical Collection Method Collection Time Receive d Time (Source) Location / / Volume Laterality Blood specimen 09/06/2018 6:00 AM 019 6:14 (specimen) EDT AM EDT Resulting Agency Comment Spec In Lab Unique Moody MD CHEMISTRY ORDERABLES Performing Organization Address City/[facility]/[place] [address] (ABNORMAL) BMP w/fasting Glucose (09/06/2018 6:00 AM EDT) P athologist Signature Glucose 120 (H) 65 - 99 [facility] Fasting mg/dL [facility] Comment: ?Fasting* Glucose Interpretive C riteria [...] of Diabetes Mellitus, Position Statement from the [place] [employer]. ??Diabete s Care, Volume 33, Supplement 1, Apr 2009 BUN 40 (H) 8 - 18 mg/dL [facility] LABORATORY Creatinine 2.46 (H) 0.70 - 1.20 mg/dL [facility] LABORATORY Sodium 140 135 - 145 mmol/L [facility] Potassium 3.3 (L) 3.5 - 5.0 mmol/L [facility] Comment: result rechecked-f Please note: ??Patients with WBC >100,00 0 may have falsely elevated Potassium levels. ??For accurate Potassium quantif ication in these patients send serum separator tube (gold top) for subsequent determinations. ??Contact the Clinical Chemistry Laboratory if there are any qu estions. Chloride 96 (L) 98 - 107 mmol/L [facility] CO2 28 22 - 31 mmol/L [facility] Anion Gap 16 (H) 5 - 15 mmol/L [facility] Calcium 8.9 8.5 - 10.5 mg/dL [facility] Estimated GFR 19 (L) >=60 mL/min/1.73 m?? [facility] Comment: The eGFR was calculated using the CKD-EP I equation. As with all creatinine based estimates of kidney function, eGFR values calculated with the CKD-EPI equation are not accurate in patients wi th acute kidney failure, extremes of body mass or the acutely ill. [email or web address] [email or web address] eGFR 22 (L) >=60 mL/min/1.73 m?? [facility] Comment: The eGFR was calculated using the CKD-EP I equation. As with all creatinine based estimates of kidney function, eGFR values calculated with the CKD-EPI equation are not accurate in patients wi th acute kidney failure, extremes of body mass or the acutely ill. [email or web address] [email or web address] Specimen Anatomical Collection Method Collection Time Receive d Time (Source) Location / / Volume Laterality Blood specimen 09/06/2018 6:00 AM 019 6:14 (specimen) EDT AM EDT Resulting Agency Comment Spec In Lab Unique Moody MD CHEMISTRY ORDERABLES Performing Organization Address City/[facility]/[place] [address] Potassium (09/05/2018 2:54 AM EDT) P athologist Signature Potassium 4.9 3.5 - 5.0 [facility]/L [facility] Comment: delta result rechecked-KLA Please note: [...] Randolph MD CHEMISTRY ORDERABLES Performing Organization Address City/[facility]/[place] [address] (ABNORMAL) Differential, Automated (09/05/2018 1:50 AM EDT) Patholo gist Method Time Signature Neutrophils % 72.2 % [facility] Neutr Abs (ANC) 8.67 (H) 1.70 - [place] 6.10 [facility] x10(3)/[facility] LABORATORY Lymphocytes % 12.7 % [facility] Lymphocytes Abs 1.5 0.9 - 3.2 [facility] x10(3)/[facility] LABORATORY Monocytes % 10.0 % [facility] Monocyte Abs 1.2 (H) 0.3 - 0.9 [facility] x10(3)/[facility] LABORATORY Eosinophils % 4.1 % [facility] Eosinophils Abs 0.5 (H) 0.0 - 0.4 [facility] x10(3)/[facility] LABORATORY Basophils % 0.4 % [facility] Basophils Abs 0.0 0.0 - 0.1 [facility] x10(3)/[facility] LABORATORY Immature Gran % 0.60 % [facility] Comment: Immature granulocytes(IG's)percentage an d absolute count will include metamyelocytes, myelocytes, and promyelo cytes. Blood smears from CBCs yielding IG's will be scanned manually for concor dance. If this scan disagrees with the automated IG or if promyelocytes are not ed, a manual differential will be performed. Blanca Gran Abs 0.07 (H) 0.00 - 0.04 x10(3)/[facility] LABORATORY Specimen Anatomical Collection Method Collection Time Receive d Time (Source) Location / / Volume Laterality Blood specimen 09/05/2018 1:50 AM 019 2:00 (specimen) EDT AM EDT Resulting Agency Comment Spec In Lab Rhea Cevallos MD HEMATOLOGY ORDERABLES Performing Organization Address City/State/[place] [address] (ABNORMAL) Hemogram (09/05/2018 1:50 AM EDT) Analysis Performed At Patho logist Time Signature WBC 12.0 (H) 4.0 - 9.5 [facility] x10(3)/[facility] LABORATORY RBC 3.96 (L) 4.00 - [facility] 5.21 [facility] x10(6)/[facility] LABORATORY Hemoglobin 12.3 11.7 - [facility] 15.5 gm/dL [facility] Hematocrit 34.1 (L) 35.7 - [facility] 45.8 % [facility] MCV 86.1 82.6 - [facility] 94.4 [facility] LABORATORY MCH 31.1 27.1 - [place] 32.0 pg [facility] MCHC 36.1 (H) 31.7 - [facility] 35.0 gm/dL [facility] Platelets 243 145 - 357 [facility] x10(3)/[facility] LABORATORY RDWSD 40.6 37.0 - [facility] 46.0 [facility] LABORATORY RDWCV 13.0 11.5 - [facility] 14.1 % [facility] MPV 12.2 7.6 - 12.9 [facility] LABORATORY nRBC % Auto 0.0 % [facility] nRBC Abs Auto 0.000 0.000 - [facility] 0.000 [facility] x10(3)/[facility] LABORATORY Specimen Anatomical Collection Method Collection Time Receive d Time (Source) Location / / Volume Laterality Blood specimen 09/05/2018 1:50 AM 019 2:00 (specimen) EDT AM EDT Resulting Agency Comment Spec In Lab Rhea Cevallos MD HEMATOLOGY ORDERABLES Performing Organization Address City/State/ZIP Code Phon e Number [address] (ABNORMAL) Magnesium (09/05/2018 1:50 AM EDT) P athologist Signature Magnesium 1.24 (H) 0.69 - 1.07 [facility] mmol/L [facility] Specimen Anatomical Collection Method Collection Time Receive d Time (Source) Location / / Volume Laterality Blood specimen 09/05/2018 1:50 AM 019 2:00 (specimen) EDT AM EDT Resulting Agency Comment Spec In Lab Unique Moody MD CHEMISTRY ORDERABLES Performing Organization Address City/State/ZIP Code Phon e Number [address] (ABNORMAL) BMP w/fasting Glucose (09/05/2018 1:50 AM EDT) P athologist Signature Glucose 130 (H) 65 - 99 [facility] Fasting mg/dL [facility] Comment: ?Fasting* Glucose Interpretive C riteria [...] of Diabetes Mellitus, Position Statement from the [place] [employer]. ??Diabete s Care, Volume 33, Supplement 1, Apr 2009 BUN 44 (H) 8 - 18 mg/dL [facility] Creatinine 2.50 (H) 0.70 - 1.20 mg/dL [facility] LABORATORY Sodium 137 135 - 145 mmol/L [facility] Potassium Not Perf 3.5 - 5.0 [facility]ORY Comment: Unable to quantitate [...] estions. Chloride 101 98 - 107 mmol/L [facility] Comment: delta result rechecked-KLA CO2 24 22 - 31 mmol/L [facility] Anion Gap 12 5 - 15 mmol/L [facility] Calcium 8.5 8.5 - 10.5 mg/dL [facility] Estimated GFR 19 (L) >=60 mL/min/1.73 m?? [facility] Comment: The eGFR was calculated using the CKD-EP I equation. As with all creatinine based estimates of kidney function, eGFR values calculated with the CKD-EPI equation are not accurate in patients wi th acute kidney failure, extremes of body mass or the acutely ill. [email or web address] eGFR 22 (L) >=60 mL/min/1.73 m?? [facility] Comment: The eGFR was calculated using the CKD-EP I equation. As with all creatinine based estimates of kidney function, eGFR values calculated with the CKD-EPI equation are not accurate in patients wi th acute kidney failure, extremes of body mass or the acutely ill. [email or web address] Specimen Anatomical Collection Method Collection Time Receive d Time (Source) Location / / Volume Laterality Blood specimen 09/05/2018 1:50 AM 019 2:00 (specimen) EDT AM EDT Resulting Agency Comment Spec In Lab Unique Moody MD CHEMISTRY ORDERABLES Performing Organization Address City/State/[place] [address] (ABNORMAL) BMP w/fasting Glucose (09/04/2018 1:20 PM EDT) athologist Signature Glucose 228 (H) 65 - 99 [facility] Fasting mg/dL [facility] Comment: ?Fasting* Glucose Interpretive C riteria [...] of Diabetes Mellitus, Position Statement from the [place] [employer]. ??Diabete s Care, Volume 33, Supplement 1, Apr 2009 BUN 47 (H) 8 - 18 mg/dL [facility] Creatinine 2.45 (H) 0.70 - 1.20 mg/dL [facility]ORATORY Sodium 131 (L) 135 - 145 mmol/L [facility] Potassium 3.2 (L) 3.5 - 5.0 mmol/L [facility] Comment: Please note: ??Patients with WBC >100,00 0 may have falsely elevated Potassium levels. ??For accurate Potassium quantif ication in these patients send serum separator tube (gold top) for subsequent determinations. ??Contact the Clinical Chemistry Laboratory if there are any qu estions. Chloride 91 (L) 98 - 107 mmol/L [facility] CO2 23 22 - 31 mmol/L [facility] Anion Gap 17 (H) 5 - 15 mmol/L [facility] Calcium 8.5 8.5 - 10.5 mg/dL [facility] Estimated GFR 19 (L) >=60 mL/min/1.73 m?? [facility] Comment: The eGFR was calculated using the CKD-EP I equation. As with all creatinine based estimates of kidney function, eGFR values calculated with the CKD-EPI equation are not accurate in patients wi th acute kidney failure, extremes of body mass or the acutely ill. [email or web address]/[facility]MANnkf eGFR 23 (L) >=60 mL/min/1.73 m?? [facility] Comment: The eGFR was calculated using the CKD-EP I equation. As with all creatinine based estimates of kidney function, eGFR values calculated with the CKD-EPI equation are not accurate in patients wi th acute kidney failure, extremes of body mass or the acutely ill. [email or web address] Specimen Anatomical Collection Method Collection Time Receive d Time (Source) Location / / Volume Laterality Blood specimen 09/04/2018 1:20 PM 019 1:59 (specimen) EDT PM EDT Resulting Agency Comment Spec In Lab Wilman Randolph MD CHEMISTRY ORDERABLES Performing Organization Address City/[facility]/ZIP Code Phon e Number [address] Magnesium (09/04/2018 2:25 AM EDT) P athologist Signature Magnesium 0.92 0.69 - 1.07 [facility] mmol/L [facility] Specimen Anatomical Collection Method Collection Time Receive d Time (Source) Location / / Volume Laterality Blood specimen Venous Draw / 09/04/2018 2:25 AM 2018 5:04 (specimen) Unknown EDT AM EDT Resulting Agency Comment Spec In Lab Rhea Cevallos MD CHEMISTRY ORDERABLES Performing Organization Address City/[facility]/ZIP Code Phon e Number [address] (ABNORMAL) Differential, Automated (09/04/2018 2:25 AM EDT) [facility] Method Time Signature Neutrophils % 83.5 % [facility] Neutr Abs (ANC) 11.28 (H) 1.70 - [facility] 6.10 [facility] x10(3)/[facility] LABORATORY Lymphocytes % 7.5 % [facility] Lymphocytes Abs 1.0 0.9 - 3.2 [facility] x10(3)/[facility] LABORATORY Monocytes % 7.9 % [facility] Monocyte Abs 1.1 (H) 0.3 - 0.9 [facility] x10(3)/[facility] LABORATORY Eosinophils % 0.1 % [facility] Eosinophils Abs 0.0 0.0 - 0.4 [facility] x10(3)/[facility] LABORATORY Basophils % 0.1 % [facility] Basophils Abs 0.0 0.0 - 0.1 [facility] x10(3)/[facility] LABORATORY Immature Gran % 0.90 % [facility] Comment: Immature granulocytes(IG's)percentage an d absolute count will include metamyelocytes, myelocytes, and promyelo cytes. Blood smears from CBCs yielding IG's will be scanned manually for concor dance. If this scan disagrees with the automated IG or if promyelocytes are not ed, a manual differential will be performed. Blanca Gran Abs 0.12 (H) 0.00 - 0.04 x10(3)/[facility] LABORATORY Specimen Anatomical Collection Method Collection Time Receive d Time (Source) Location / / Volume Laterality Blood specimen 09/04/2018 2:25 AM 019 2:45 (specimen) EDT AM EDT Resulting Agency Comment Spec In Lab Adriano Howell MD HEMATOLOGY ORDERABLES Performing Organization Address City/State/ZIP Code Phon e Number [place] [phone] [facility] LABORATORY Drive (ABNORMAL) Hemogram (09/04/2018 2:25 AM EDT) Analysis Performed At [facility] logist Time Signature WBC 13.5 (H) 4.0 - 9.5 [facility] x10(3)/[facility] LABORATORY RBC 3.93 (L) 4.00 - [place] 5.21 [facility] x10(6)/[facility] LABORATORY Hemoglobin 12.0 11.7 - [place] 15.5 gm/dL [facility] Hematocrit 34.4 (L) 35.7 - [facility] 45.8 % [facility] MCV 87.5 82.6 - [facility] 94.4 [facility] LABORATORY MCH 30.5 27.1 - [place] 32.0 pg [facility] MCHC 34.9 31.7 - [facility] 35.[facility] gm/dL [facility] Platelets 221 145 - 357 [facility] x10(3)/[facility] LABORATORY RDWSD 42.3 37.0 - [facility] 46.0 [facility] LABORATORY RDWCV 13.2 11.5 - [facility]ENT[facility] 14.1 % [facility] MPV 11.5 7.6 - 12.9 [facility] LABORATORY nRBC % Auto 0.0 % [facility] nRBC Abs Auto 0.000 0.000 - [facility] 0.000 [facility] x10(3)/[facility] LABORATORY Specimen Anatomical Collection Method Collection Time Receive d Time (Source) Location / / Volume Laterality Blood specimen 09/04/2018 2:25 AM 019 2:45 (specimen) EDT AM EDT Resulting Agency Comment Spec In Lab Adriano Howell MD HEMATOLOGY ORDERABLES Performing Organization Address City/State/[place] [address] (ABNORMAL) BMP w/fasting Glucose (09/04/2018 2:25 AM EDT) athologist Signature Glucose 122 (H) 65 - 99 [facility] Fasting mg/dL [facility] Comment: ?Fasting* Glucose Interpretive C riteria [...] of Diabetes Mellitus, Position Statement from the [place] [employer]. ??Diabete s Care, Volume 33, Supplement 1, Apr 2009 BUN 53 (H) 8 - 18 mg/dL [facility] Creatinine 2.73 (H) 0.70 - 1.20 mg/dL [facility] LABORATORY Sodium 137 135 [...] estions. Chloride 98 98 - 107 mmol/L [facility] CO2 23 22 - 31 mmol/L [facility] Anion Gap 16 (H) 5 - 15 mmol/L [facility] Calcium 8.7 8.5 - 10.5 mg/dL [facility] Estimated GFR 17 (L) >=60 mL/min/1.73 m?? [facility] Comment: The eGFR was calculated using the CKD-EP I equation. As with all creatinine based estimates of kidney function, eGFR values calculated with the CKD-EPI equation are not accurate in patients wi th acute kidney failure, extremes of body mass or the acutely ill. [email or web address]MAN[facility] eGFR 20 (L) >=60 mL/min/1.73 m?? [facility] Comment: The eGFR was calculated using the CKD-EP I equation. As with all creatinine based estimates of kidney function, eGFR values calculated with the CKD-EPI equation are not accurate in patients wi th acute kidney failure, extremes of body mass or the acutely ill. [email or web address] Specimen Anatomical Collection Method Collection Time Receive d Time (Source) Location / / Volume Laterality Blood specimen 09/04/2018 2:25 AM 019 2:45 (specimen) EDT AM EDT Resulting Agency Comment Spec In Lab Unique Moody MD CHEMISTRY ORDERABLES Performing Organization Address City/[facility]/ZIP Code Phon e Number [address] Magnesium (09/03/2018 7:57 PM EDT) athologist Signature Magnesium 0.94 0.69 - 1.07 [facility] mmol/L [facility] Specimen Anatomical Collection Method Collection Time Receive d Time (Source) Location / / Volume Laterality Blood specimen 09/03/2018 7:57 PM 019 8:11 (specimen) EDT PM EDT Resulting Agency Comment Spec In Lab Thom Munguia MD CHEMISTRY ORDERABLES Performing Organization Address City/[facility]/[place] [address] (ABNORMAL) BMP w/fasting Glucose (09/03/2018 7:57 PM EDT) P athologist Signature Glucose 165 (H) 65 - 99 [facility] Fasting mg/dL [facility] Comment: ?Fasting* Glucose Interpretive C riteria [...] of Diabetes Mellitus, Position Statement from the [place] [employer]. ??Diabete s Care, Volume 33, Supplement 1, Apr 2009 BUN 51 (H) 8 - 18 mg/dL [facility] Creatinine 2.76 (H) 0.70 - 1.20 mg/dL [facility]ORY Sodium 135 135 - 145 mmol/L [facility] Potassium 4.0 3.5 - 5.0 mmol/L [facility] Comment: result rechecked-csb Please note: ??Patients with WBC >100,00 0 may have falsely elevated Potassium levels. ??For accurate Potassium quantif ication in these patients send serum separator tube (gold top) for subsequent determinations. ??Contact the Clinical Chemistry Laboratory if there are any qu estions. Chloride 97 (L) 98 - 107 mmol/L [facility] CO2 22 22 - 31 mmol/L [facility] Anion Gap 16 (H) 5 - 15 mmol/L [facility] Calcium 8.5 8.5 - 10.5 mg/dL [facility] Estimated GFR 17 (L) >=60 mL/min/1.73 m?? [facility] Comment: The eGFR was calculated using the CKD-EP I equation. As with all creatinine based estimates of kidney function, eGFR values calculated with the CKD-EPI equation are not accurate in patients wi th acute kidney failure, extremes of body mass or the acutely ill. [email or web address] eGFR 20 (L) >=60 mL/min/1.73 m?? [facility] Comment: The eGFR was calculated using the CKD-EP I equation. As with all creatinine based estimates of kidney function, eGFR values calculated with the CKD-EPI equation are not accurate in patients wi th acute kidney failure, extremes of body mass or the acutely ill. [email or web address] Specimen Anatomical Collection Method Collection Time Receive d Time (Source) Location / / Volume Laterality Blood specimen 09/03/2018 7:57 PM 019 8:11 (specimen) EDT PM EDT Resulting Agency Comment Spec In Lab Thom Munguia MD CHEMISTRY ORDERABLES Performing Organization Address City/[facility]/ZIP Code Phon e Number [place] [phone] LAB[address]ORY Drive Renin Activity (09/03/2018 6:10 PM EDT) athologist Signature Renin Activity 25 ng/ml/hr [facility] Comment: REFERENCE VALUE------ (Peripheral vein specimen) Na-deplete, upright: ??Mean: 5.9 ??Range: 2.9-10.8 Na-replete, upright: ??Mean: 1.0 ??Range: < or =0.6-3.0 ADDITIONAL INFORMATIO N Testing performed by Liquid Chromatograp hy-Tandem Mass Spectrometry (LC-MS/MS). This test was developed and its performa nce characteristics determined by [facility] in a manner co nsistent with CLIA requirements. This test has not been cher ared or approved by the U.S. Food and Drug Administration. Test Performed by: [facility] [address] [place] [id number] Specimen Anatomical Collection Method Collection Time Receive d Time (Source) Location / / Volume Laterality Blood specimen 09/03/2018 6:10 PM 019 (specimen) EDT 10:46 AM EDT Resulting Agency Comment Spec In Lab Tyron Kemp MD CHEMISTRY ORDERABLES Performing Organization Address City/[facility]/[place] [address] [facility] LAB[address] Drive Troponin (09/03/2018 6:55 AM EDT) athologist Signature Troponin-T <0.01 0.00 - 0.00 [facility] ng/mL [facility] Comment: The 99th percentile for Troponin T is le ss than 0.01 ng/mL, any detectable cTnT concentration using this assay should be considered elevated. According to the third universal definit ion of myocardial infarction the following criteria with a clinical prese ntation consistent with acute myocardial ischemia meets the diagnosis for a myocardial infarction ([place]). Detection of a rise and/or fall of [...] additional sample may be indicated. Reference: Third [place] Definition of Myocardial Infarction. Journal of the [place] [employer] 2012;60:1581-98 Specimen Anatomical Collection Method Collection Time Receive d Time (Source) Location / / Volume Laterality Blood specimen 09/03/2018 6:55 AM 019 7:04 (specimen) EDT AM EDT Resulting Agency Comment Spec In Lab Thom Munguia MD CHEMISTRY ORDERABLES Performing Organization Address City/State/[place] [address] (ABNORMAL) Basic Metabolic Panel (non-fasting) (09/03/2018 6:55 AM EDT) P athologist Signature Glucose Lvl 140 65 - 199 [facility] mg/dL [facility] Comment: Diabetes: >=200 mg/dL plus symp toms BUN 50 (H) 8 - 18 mg/dL [facility] Creatinine 2.80 (H) 0.70 - 1.20 mg/dL [facility] Sodium 131 (L) 135 - 145 mmol/L [facility] Potassium 5.2 (H) 3.5 - 5.0 mmol/L [facility] [facility] Comment: Please note: ??Patients with WBC >100,00 0 may have falsely elevated Potassium levels. ??For accurate Potassium quantif ication in these patients send serum separator tube (gold top) for subsequent determinations. ??Contact the Clinical Chemistry Laboratory if there are any qu estions. Chloride 99 98 - 107 mmol/L [facility] CO2 19 (L) 22 - 31 mmol/L [facility] Anion Gap 13 5 - 15 mmol/L [facility] Calcium 8.4 (L) 8.5 - 10.5 mg/dL [facility] Estimated GFR 17 (L) >=60 mL/min/1.73 m?? [facility] Comment: The eGFR was calculated using the CKD-EP I equation. As with all creatinine based estimates of kidney function, eGFR values calculated with the CKD-EPI equation are not accurate in patients wi th acute kidney failure, extremes of body mass or the acutely ill. [email or web address]/[facility] eGFR 19 (L) >=60 mL/min/1.73 m?? [facility] Comment: The eGFR was calculated using the CKD-EP I equation. As with all creatinine based estimates of kidney function, eGFR values calculated with the CKD-EPI equation are not accurate in patients wi th acute kidney failure, extremes of body mass or the acutely ill. [email or web address]MAN[facility]f Specimen Anatomical Collection Method Collection Time Receive d Time (Source) Location / / Volume Laterality Blood specimen 09/03/2018 6:55 AM 019 7:04 (specimen) EDT AM EDT Resulting Agency Comment Spec In Lab Thom Munguia MD CHEMISTRY ORDERABLES Performing Organization Address City/State/[place] [address] (ABNORMAL) BLOOD GAS 2 VENOUS (09/03/2018 5:24 AM EDT) P athologist Signature pH Ward 7.35 7.32 - [facility] 7.42 [facility] pCO2 Ward 39 (L) 41 - 51 [facility]ORY pO2 Ward 52 (H) 25 - 40 [facility] HCO3 Ward 21.0 mmol/L [facility] BE Ward -4.6 mmol/L [facility] Hgb Blood Gas 13.4 11.7 - [facility] 15.5 gm/dL [facility] O2HB Ward 85.6 % [facility] COHB Ward 0.6 % [facility] Comment: Nonsmokers: 0.5-1.5% COHB Smokers: Variable, but usually less than 10% Toxic: 20-30% COHB Lethal: Greater than 60% COHB METHB Ward 0.5 <=1.5 % [facility] Na Whole Blood 129 (L) 135 - 145 mmol/L [facility] K Whole Blood 5.0 3.5 - 5.0 mmol/L [facility] Comment: Please note: Patients with WBC >100,000 may have falsely elevated Potassium levels. Contact the Clinical Chemistry L aboratory if there are any questions. ICa Whole Blood 1.11 (L) 1.15 - 1.33 mmol/L [facility] Comment: Note: ??Total bilirubin higher than 20 m g/dL may lead to falsely low ionized calcium. CL Whole Blood 101 98 - 107 mmol/L [facility] Gluc Whole Bld 153 65 - 199 mg/dL [facility] Comment: Diabetes: >=200 mg/dL plus symp toms Lactate WB 1.0 0.5 - 2.2 mmol/L [facility] BGas Source Venous [facility] Specimen Anatomical Collection Method Collection Time Receive d Time (Source) Location / / Volume Laterality Blood specimen 09/03/2018 5:24 AM 019 5:24 (specimen) EDT AM EDT Thom Munguia MD CHEMISTRY ORDERABLES Performing Organization Address City/State/[place] [address] EKG 12 Lead (09/03/2018 3:21 AM EDT) Component Value Ref Range Test Analysis Performed Pathologis t Method Time At Signature Ventricular rate 73 BPM MUSE SYSTEM Atrial Rate 73 BPM MUSE SYSTEM P-R Interval 142 ms MUSE SYSTEM QRS Duration 82 ms MUSE SYSTEM Q-T Interval 422 ms MUSE SYSTEM QTC Calculated 464 ms MUSE SYSTEM (Bezet) Calculated P Elizabeth 35 degrees MUSE SYSTEM Calculated R Elizabeth 30 degrees MUSE SYSTEM Calculated T Elizabeth 57 degrees MUSE SYSTEM INTERPRETATION Normal sinus [...] athologist Signature Troponin-T <0.01 0.00 - 0.00 [facility] ng/mL [facility] Comment: The 99th percentile for Troponin T is le ss than 0.01 ng/mL, any detectable cTnT concentration using this assay should be considered elevated. According to the third universal definit ion of myocardial infarction the following criteria with a clinical prese ntation consistent with acute myocardial ischemia meets the diagnosis for a myocardial infarction ([place]). Detection of a rise and/or fall of [...] additional sample may be indicated. Reference: Third [place] Definition of Myocardial Infarction. Journal of the [place] [employer] 2012;60:1581-98 Specimen Anatomical Collection Method Collection Time Receive d Time (Source) Location / / Volume Laterality Blood specimen 09/03/2018 3:15 AM 019 3:19 (specimen) EDT AM EDT Resulting Agency Comment Spec In Lab Vilma Mantilla APRN CHEMISTRY ORDERABLES Performing Organization Address City/State/ZIP Code Phon e Number [place] [id number] XR Chest PA or [...] contact e number below. Vilma Mantilla APRN IMAmanda DX ORDERABLES Phosphorus (09/03/2018 12:35 AM EDT) P athologist Signature Phosphorus 4.4 2.5 - 4.5 [place] mg/dL [facility] Specimen Anatomical Collection Method Collection Time Receive d Time (Source) Location / / Volume Laterality Blood specimen 09/03/2018 12:35 9 (specimen) AM EDT 12:39 AM EDT Resulting Agency Comment Spec In Lab Ren Hoffmann MD CHEMISTRY ORDERABLES Performing Organization Address City/State/[place] [address] Magnesium (09/03/2018 12:35 AM EDT) P athologist Signature Magnesium 0.95 0.69 - 1.07 [facility] mmol/L [facility] Specimen Anatomical Collection Method Collection Time Receive d Time (Source) Location / / Volume Laterality Blood specimen 09/03/2018 12:35 9 (specimen) AM EDT 12:39 AM EDT Resulting Agency Comment Spec In Lab Ren Hoffmann MD CHEMISTRY ORDERABLES Performing Organization Address City/State/[place] [address] (ABNORMAL) Basic Metabolic Panel (non-fasting) (09/03/2018 12:35 AM EDT) P athologist Signature Glucose Lvl 172 65 - 199 [facility] mg/dL [facility] Comment: Diabetes: >=200 mg/dL plus symp toms BUN 48 (H) 8 - 18 mg/dL [facility] Creatinine 2.89 (H) 0.70 - 1.20 mg/dL [facility] Sodium 133 (L) 135 - 145 mmol/L [facility] Potassium 4.7 3.5 - 5.0 mmol/L [facility] Comment: Please note: ??Patients with WBC >100,00 0 may have falsely elevated Potassium levels. ??For accurate Potassium quantif ication in these patients send serum separator tube (gold top) for subsequent determinations. ??Contact the Clinical Chemistry Laboratory if there are any qu estions. Chloride 98 98 - 107 mmol/L [facility] CO2 20 (L) 22 - 31 mmol/L [facility] Anion Gap 15 5 - 15 mmol/L [facility] Calcium 8.2 (L) 8.5 - 10.5 mg/dL [facility] Estimated GFR 16 (L) >=60 mL/min/1.73 m?? [facility] Comment: The eGFR was calculated using the CKD-EP I equation. As with all creatinine based estimates of kidney function, eGFR values calculated with the CKD-EPI equation are not accurate in patients wi th acute kidney failure, extremes of body mass or the acutely ill. [email or web address] eGFR 18 (L) >=60 mL/min/1.73 m?? [facility] Comment: The eGFR was calculated using the CKD-EP I equation. As with all creatinine based estimates of kidney function, eGFR values calculated with the CKD-EPI equation are not accurate in patients wi th acute kidney failure, extremes of body mass or the acutely ill. [email or web address] Specimen Anatomical Collection Method Collection Time Receive d Time (Source) Location / / Volume Laterality Blood specimen 09/03/2018 12:35 9 (specimen) AM EDT 12:39 AM EDT Resulting Agency Comment Spec In Lab Ren Hoffmann MD CHEMISTRY ORDERABLES Performing Organization Address City/State/[place] [address] (ABNORMAL) Differential, Automated (09/02/2018 2:07 PM EDT) [facility] Method Time Signature Neutrophils % 87.5 % [facility] Neutr Abs (ANC) 8.46 (H) 1.70 - [facility] 6.10 [facility] x10(3)/[facility] LABORATORY Lymphocytes % 6.2 % [facility] Lymphocytes Abs 0.6 (L) 0.9 - 3.2 [facility] x10(3)/[facility] LABORATORY Monocytes % 5.9 % [facility] Monocyte Abs 0.6 0.3 - 0.9 [facility] x10(3)/[facility] LABORATORY Eosinophils % 0.0 % [facility] Eosinophils Abs 0.0 0.0 - 0.4 [facility] x10(3)[facility] LABORATORY Basophils % 0.1 % [facility] Basophils Abs 0.0 0.0 - 0.1 [facility] x10(3)/[facility] LABORATORY Immature Gran % 0.30 % [facility] Comment: Immature granulocytes(IG's)percentage an d absolute count will include metamyelocytes, myelocytes, and promyelo cytes. Blood smears from CBCs yielding IG's will be scanned manually for concor dance. If this scan disagrees with the automated IG or if promyelocytes are not ed, a manual differential will be performed. Blanca Gran Abs 0.03 0.00 - 0.04 x10(3)/[facility] Specimen Anatomical Collection Method Collection Time Receive d Time (Source) Location / / Volume Laterality Blood specimen 09/02/2018 2:07 PM 019 2:12 (specimen) EDT PM EDT Resulting Agency Comment Spec In Lab Leah Cline MD HEMATOLOGY ORDERABLES Performing Organization Address City/[facility]/[place] [address] (ABNORMAL) Hemogram (09/02/2018 2:07 PM EDT) Analysis Performed At Patho logist Time Signature WBC 9.7 (H) 4.0 - 9.5 [facility] LABORATORY RBC 3.89 (L) 4.00 - [facility] 5.21 [facility] x10(6)/[facility] LABORATORY Hemoglobin 11.8 11.7 - [facility] 15.5 gm/dL [facility] Hematocrit 33.5 (L) 35.7 - [facility] 45.8 % [facility] MCV 86.1 82.6 - [facility] 94.4 [facility] LAB[facility] MCH 30.3 27.1 - [facility] 32.0 pg [facility] MCHC 35.2 (H) 31.7 - [facility] 35.0 gm/dL [facility] Platelets 229 145 - 357 [facility] x10(3)/[facility] LABORATORY RDWSD 40.4 37.0 - [facility] 46.0 [facility] LABORATORY RDWCV 12.9 11.5 - [facility] 14.1 % [facility] MPV 10.9 7.6 - 12.9 [facility] LABORATORY nRBC % Auto 0.0 % [facility] nRBC Abs Auto 0.000 0.000 - [facility] 0.000 [facility] x10(3)/[facility] LABORATORY Specimen Anatomical Collection Method Collection Time Receive d Time (Source) Location / / Volume Laterality Blood specimen 09/02/2018 2:07 PM 019 2:12 (specimen) EDT PM EDT Resulting Agency Comment Spec In Lab Leah Cline MD HEMATOLOGY ORDERABLES Performing Organization Address City/State/[place] [address] (ABNORMAL) Phosphorus (09/02/2018 3:29 AM EDT) athologist Signature Phosphorus 6.2 (H) 2.5 - 4.5 [facility] mg/dL [facility] Specimen Anatomical Collection Method Collection Time Receive d Time (Source) Location / / Volume Laterality Blood specimen 09/02/2018 3:29 AM 019 3:33 (specimen) EDT AM EDT Resulting Agency Comment Spec In Lab Liliana Echeverria MD CHEMISTRY ORDERABLES Performing Organization Address City/[facility]/ZIP Code Phon e Number [address] Magnesium (09/02/2018 3:29 AM EDT) athologist Signature Magnesium 0.97 0.69 - 1.07 [facility] mmol/L [facility] Specimen Anatomical Collection Method Collection Time Receive d Time (Source) Location / / Volume Laterality Blood specimen 09/02/2018 3:29 AM 019 3:33 (specimen) EDT AM EDT Resulting Agency Comment Spec In Lab Liliana Echeverria MD CHEMISTRY ORDERABLES Performing Organization Address City/[facility] Phon e Number [address] (ABNORMAL) Basic Metabolic Panel (non-fasting) (09/02/2018 3:29 AM EDT) athologist Signature Glucose Lvl 142 65 - 199 [facility] mg/dL [facility] Comment: Diabetes: >=200 mg/dL plus symp toms BUN 36 (H) 8 - 18 mg/dL [facility] Creatinine 2.71 (H) 0.70 - 1.20 mg/dL [facility] Sodium 134 (L) 135 - 145 mmol/L [facility] Potassium 4.8 3.5 - 5.0 mmol/L [facility] Comment: Please note: ??Patients with WBC >100,00 0 may have falsely elevated Potassium levels. ??For accurate Potassium quantif ication in these patients send serum separator tube (gold top) for subsequent determinations. ??Contact the Clinical Chemistry Laboratory if there are any qu estions. Chloride 98 98 - 107 mmol/L [facility] CO2 20 (L) 22 - 31 mmol/L [facility] Anion Gap 16 (H) 5 - 15 mmol/L [facility] Calcium 8.5 8.5 - 10.5 mg/dL [facility] Estimated GFR 17 (L) >=60 mL/min/1.73 m?? [facility] Comment: The eGFR was calculated using the CKD-EP I equation. As with all creatinine based estimates of kidney function, eGFR values calculated with the CKD-EPI equation are not accurate in patients wi th acute kidney failure, extremes of body mass or the acutely ill. [email or web address]/[facility] eGFR 20 (L) >=60 mL/min/1.73 m?? [facility] Comment: The eGFR was calculated using the CKD-EP I equation. As with all creatinine based estimates of kidney function, eGFR values calculated with the CKD-EPI equation are not accurate in patients wi th acute kidney failure, extremes of body mass or the acutely ill. [email or web address] Specimen Anatomical Collection Method Collection Time Receive d Time (Source) Location / / Volume Laterality Blood specimen 09/02/2018 3:29 AM 019 3:33 (specimen) EDT AM EDT Resulting Agency Comment Spec In Lab Liliana Echeverria MD CHEMISTRY ORDERABLES Performing Organization Address City/State/[place] [address] EKG 12 Lead (09/02/2018 12:58 AM EDT) Component Value Ref Range Test Analysis Performed Pathologis t Method Time At Signature Ventricular rate 70 BPM MUSE SYSTEM Atrial Rate 70 BPM MUSE SYSTEM P-R Interval 146 ms MUSE SYSTEM QRS Duration 84 ms MUSE SYSTEM Q-T Interval 430 ms MUSE SYSTEM QTC Calculated 464 ms MUSE SYSTEM (Bezet) Calculated P Elizabeth 46 degrees MUSE SYSTEM Calculated R Elizabeth 20 degrees MUSE SYSTEM Calculated T Elizabeth 30 degrees MUSE SYSTEM INTERPRETATION Normal sinus [...] Organization Address City/State/ZIP Code Phon e Number [place], [place] Magnesium (09/01/2018 12:20 AM EDT) athologist Signature Magnesium 0.86 0.69 - 1.07 [facility] mmol/L [facility] Specimen Anatomical Collection Method Collection Time Receive d Time (Source) Location / / Volume Laterality Blood specimen 09/01/2018 12:20 9 (specimen) AM EDT 12:32 AM EDT Resulting Agency Comment Spec In Lab Ren Hoffmann MD CHEMISTRY ORDERABLES Performing Organization Address City/State/[place] [address] (ABNORMAL) Hemogram (09/01/2018 12:20 AM EDT) Analysis Performed At Patho logist Time Signature WBC 6.7 4.0 - 9.5 [facility] x10(3)/[facility] LABORATORY RBC 3.79 (L) 4.00 - [facility] 5.21 [facility] x10(6)/[facility] LABORATORY Hemoglobin 11.5 (L) 11.7 - [facility] 15.5 gm/dL [facility] Hematocrit 32.9 (L) 35.7 - [facility] 45.8 % [facility] MCV 86.8 82.6 - [facility] 94.4 [facility] LABORATORY MCH 30.3 27.1 - [place] 32.0 pg [facility] MCHC 35.0 31.7 - [facility] 35.0 gm/dL [facility] Platelets 220 145 - 357 [facility] x10(3)/[facility] LABORATORY RDWSD 41.0 37.0 - [facility] 46.0 [facility] LABORATORY RDWCV 12.9 11.5 - [facility] 14.1 % [facility] MPV 11.0 7.6 - 12.9 [facility] LABORATORY nRBC % Auto 0.0 % [facility] nRBC Abs Auto 0.000 0.000 - [facility] 0.000 [facility] x10(3)/[facility] LABORATORY Specimen Anatomical Collection Method Collection Time Receive d Time (Source) Location / / Volume Laterality Blood specimen 09/01/2018 12:20 9 (specimen) AM EDT 12:32 AM EDT Resulting Agency Comment Spec In Lab Ren Hoffmann MD HEMATOLOGY ORDERABLES Performing Organization Address City/State/ZIP Code Phon e Number [facility] [place] [address] (ABNORMAL) Basic Metabolic Panel (non-fasting) (09/01/2018 12:20 AM EDT) P athologist Signature Glucose Lvl 117 65 - 199 [facility] mg/dL [facility] Comment: Diabetes: >=200 mg/dL plus symp toms BUN 24 (H) 8 - 18 mg/dL [facility] Creatinine 2.17 (H) 0.70 - 1.20 mg/dL [facility] estions. Chloride 99 98 - 107 mmol/L [facility] CO2 23 22 - 31 mmol/L [facility] Anion Gap 12 5 - 15 mmol/L [facility] Calcium 7.8 (L) 8.5 - 10.5 mg/dL [facility] Estimated GFR 23 (L) >=60 mL/min/1.73 m?? [facility] Comment: The eGFR was calculated using the CKD-EP I equation. As with all creatinine based estimates of kidney function, eGFR values calculated with the CKD-EPI equation are not accurate in patients wi th acute kidney failure, extremes of body mass or the acutely ill. [email or web address]/[facility] eGFR 26 (L) >=60 mL/min/1.73 m?? [facility] Comment: The eGFR was calculated using the CKD-EP I equation. As with all creatinine based estimates of kidney function, eGFR values calculated with the CKD-EPI equation are not accurate in patients wi th acute kidney failure, extremes of body mass or the acutely ill. [email or web address] Specimen Anatomical Collection Method Collection Time Receive d Time (Source) Location / / Volume Laterality Blood specimen 09/01/2018 12:20 9 (specimen) AM EDT 12:32 AM EDT Resulting Agency Comment Spec In Lab Ren Hoffmann MD CHEMISTRY ORDERABLES Performing Organization Address City/State/[place] [address] (ABNORMAL) Hemogram (08/31/2018 12:15 AM EDT) Analysis Performed At Patho logist Time Signature WBC 8.1 4.0 - 9.5 [facility] x[facility] LABORATORY RBC 4.02 4.00 - [place] 5.21 [facility] x10(6)/[facility] LABORATORY Hemoglobin 12.1 11.7 - [facility] 15.5 gm/dL [facility] Hematocrit 34.6 (L) 35.7 - [place] 45.8 % [facility] MCV 86.1 82.6 - [facility] 94.4 [facility] LABORATORY MCH 30.1 27.1 - [place] 32.0 pg [facility] MCHC 35.0 31.7 - [facility] 35.0 gm/dL [facility] Platelets 235 145 - 357 [facility] x10(3)/[facility] LABORATORY RDWSD 40.6 37.0 - [facility] 46.0 [facility] LABORATORY RDWCV 13.0 11.5 - [facility] 14.1 % [facility] MPV 10.9 7.6 - 12.9 [facility] nRBC % Auto 0.0 % [facility] nRBC Abs Auto 0.000 0.000 - [place] 0.000 [facility] x10(3)/[facility] LABORATORY Specimen Anatomical Collection Method Collection Time Receive d Time (Source) Location / / Volume Laterality Blood specimen 08/31/2018 12:15 9 (specimen) AM EDT 12:18 AM EDT Resulting Agency Comment Spec In Lab Ren Hoffmann MD HEMATOLOGY ORDERABLES Performing Organization Address City/State/[place] [address] Phosphorus (08/31/2018 12:15 AM EDT) P athologist Signature Phosphorus 3.5 2.5 - 4.5 [place] mg/dL [facility] Specimen Anatomical Collection Method Collection Time Receive d Time (Source) Location / / Volume Laterality Blood specimen 08/31/2018 12:15 9 (specimen) AM EDT 12:18 AM EDT Resulting Agency Comment Spec In Lab Ren Hoffmann MD CHEMISTRY ORDERABLES Performing Organization Address City/[facility]/ZIP Code Phon e Number [address] Magnesium (08/31/2018 12:15 AM EDT) athologist Signature Magnesium 0.75 0.69 - 1.07 [facility] mmol/L [facility] Specimen Anatomical Collection Method Collection Time Receive d Time (Source) Location / / Volume Laterality Blood specimen 08/31/2018 12:15 9 (specimen) AM EDT 12:18 AM EDT Resulting Agency Comment Spec In Lab Ren Hoffmann MD CHEMISTRY ORDERABLES Performing Organization Address City/[facility] Phon e Number [address] (ABNORMAL) Basic Metabolic Panel (non-fasting) (08/31/2018 12:15 AM EDT) athologist Signature Glucose Lvl 128 65 - 199 [facility] mg/dL [facility] Comment: Diabetes: >=200 mg/dL plus symp toms BUN 21 (H) 8 - 18 mg/dL [facility] Creatinine 1.93 (H) 0.70 - 1.20 mg/dL [facility]ORY Sodium 135 135 - 145 mmol/L [facility] Potassium 3.9 3.5 - 5.0 mmol/L [facility] Comment: Please note: ??Patients with WBC >100,00 0 may have falsely elevated Potassium levels. ??For accurate Potassium quantif ication in these patients send serum separator tube (gold top) for subsequent determinations. ??Contact the Clinical Chemistry Laboratory if there are any qu estions. Chloride 98 98 - 107 mmol/L [facility] CO2 23 22 - 31 mmol/L [facility] Anion Gap 14 5 - 15 mmol/L [facility] Calcium 7.9 (L) 8.5 - 10.5 mg/dL [facility] Estimated GFR 26 (L) >=60 mL/min/1.73 m?? [facility] LABORATORY Comment: The eGFR was calculated using the CKD-EP I equation. As with all creatinine based estimates of kidney function, eGFR values calculated with the CKD-EPI equation are not accurate in patients wi th acute kidney failure, extremes of body mass or the acutely ill. [email or web address]/[facility] eGFR 30 (L) >=60 mL/min/1.73 m?? [facility] Comment: The eGFR was calculated using the CKD-EP I equation. As with all creatinine based estimates of kidney function, eGFR values calculated with the CKD-EPI equation are not accurate in patients wi th acute kidney failure, extremes of body mass or the acutely ill. [email or web address]/[facility] Specimen Anatomical Collection Method Collection Time Receive d Time (Source) Location / / Volume Laterality Blood specimen 08/31/2018 12:15 9 (specimen) AM EDT 12:18 AM EDT Resulting Agency Comment Spec In Lab Ren Hoffmann MD CHEMISTRY ORDERABLES Performing Organization Address City/State/[place] [address] Duplex Study Renal Arteries, Bilat (08/30/2018 7:39 PM EDT) Component Value Ref Test Analysis Performed At [facility] Range Method Time Signature VB Text Department: Vascular Surgery Lab VASCUBASE Report Patient: [id number] (PRETTY HARMON) CPT: 35146 ICD10: I70.1 Referring Physician: LILIANA ECHEVERRIA ?? [...] diameter is 3.6 cm. Previous study on 10/31/18 was 3.1 cm with what ap pears [...] B ? (Age): 1950(67y) Med Rec#: ? [id number] ?Sex: ?F ? Site Loc: ? [facility] ?Ht / Wt: ??155(cm)/47(kg) Pt. Loc: ?ICU ? BSA: ?1.43 Study Date: ?? 08/30/2018 ?Pt. Type: Outpatient Tape: ? Referring: KIRT Reading: Quinten Nance ([id number]) Devops Developer: Unique Guzman [place], [facility] Diagnosis: *Acute combined systolic (congestive) a nd [...] E-wave Vmax ?1.4 ?m/sec ? MV deceleration spab420 ?msec ? MV A-wave Vmax ?1.2 ?m/sec [...] ? Mid-Inferior ?Normal ? Mid-Inferoseptal ?Normal ? [place]-Septal ? Normal ? [place]-Anterior ? Normal ? [place]-Lateral ?Normal ? [place]-Inferior ? Normal ? [place]-Tip ?Normal ? This report has been electronically sign ed by: _ Quinten Nance M.D. ? 08/30/2018 12:04:09 Images reviewed and interpretation camryn camargo [facility] Procedure Note Quinten Nance MD - 08/30/2018Format ting of this note might be different from the original. Procedure: Transthoracic Echocardiogram Patient: TERELL DINH(Age): [birth year] 9(67y) Med Rec#: [id number] Sex: F Site Loc: [facility] Ht / Wt: 155(cm)/47(kg) Pt. Loc: ICU BSA: 1.43 Study Date: 08/30/2018 Pt. Type: Outpati ent Tape: Referring: KIRT Reading: Quinten Nance ([id number]) Devops Developer: Unique Guzman [place], [facility] Diagnosis: *Acute combined systolic (congestive) a nd [...] aorta. Pulmonary Artery: The main pulmonary art piter appears normal. Venous: The inferior vena cava [...] MV E-wave Vmax 1.4 m/sec MV deceleration [id number] msec MV A-wave Vmax 1.2 m/sec MV [...] Normal Mid-Posterolateral Normal Mid-Inferior Normal Mid-Inferoseptal Normal [place]-Septal Normal [place]-Anterior Normal [place]-Lateral Normal [place]-Inferior Normal [place]-Tip Normal This report has been electronically sign ed by: _ Quinten Nance M.D. 08/30/2018 12:04: 09 Images reviewed and interpretation verif ied [facility] Liliana Echeverria MD ECHO ORDERABLES Magnesium (08/30/2018 8:00 AM EDT) athologist Signature Magnesium 0.80 0.69 - 1.07 [facility] mmol/L [facility] Specimen Anatomical Collection Method Collection Time Receive d Time (Source) Location / / Volume Laterality Blood specimen 08/30/2018 8:00 AM 019 8:09 (specimen) EDT AM EDT Resulting Agency Comment Spec In Lab Ren Hoffmann MD CHEMISTRY ORDERABLES Performing Organization Address City/State/[place] [address] (ABNORMAL) Basic Metabolic Panel (non-fasting) (08/30/2018 8:00 AM EDT) athologist Signature Glucose Lvl 100 65 - 199 [facility] mg/dL [facility] Comment: Diabetes: >=200 mg/dL plus symp toms BUN 22 (H) 8 - 18 mg/dL [facility] Creatinine 1.88 (H) 0.70 - 1.20 mg/dL [facility] Sodium 138 135 - 145 mmol/L [facility] [...] estions. Chloride 103 98 - 107 mmol/L [facility] CO2 24 22 - 31 mmol/L [facility] Anion Gap 11 5 - 15 mmol/L [facility] Calcium 8.4 (L) 8.5 - 10.5 mg/dL [facility] Estimated GFR 27 (L) >=60 mL/min/1.73 m?? [facility] Comment: The eGFR was calculated using the CKD-EP I equation. As with all creatinine based estimates of kidney function, eGFR values calculated with the CKD-EPI equation are not accurate in patients wi th acute kidney failure, extremes of body mass or the acutely ill. [email or web address]/[facility]itznkf eGFR 31 (L) >=60 mL/min/1.73 m?? [facility] Comment: The eGFR was calculated using the CKD-EP I equation. As with all creatinine based estimates of kidney function, eGFR values calculated with the CKD-EPI equation are not accurate in patients wi th acute kidney failure, extremes of body mass or the acutely ill. [email or web address] Specimen Anatomical Collection Method Collection Time Receive d Time (Source) Location / / Volume Laterality Blood specimen 08/30/2018 8:00 AM 019 8:09 (specimen) EDT AM EDT Resulting Agency Comment Spec In Lab Ren Hoffmann MD CHEMISTRY ORDERABLES Performing Organization Address City/State/[place] [address] EKG 12 Lead (08/29/2018 9:01 PM EDT) Component Value Ref Range Test Analysis Performed Pathologis t Method Time At Signature Ventricular rate 85 BPM MUSE SYSTEM Atrial Rate 85 BPM MUSE SYSTEM P-R Interval 148 ms MUSE SYSTEM QRS Duration 84 ms MUSE SYSTEM Q-T Interval 400 ms MUSE SYSTEM QTC Calculated 476 ms MUSE SYSTEM (Bezet) Calculated P Elizabeth 58 degrees MUSE SYSTEM Calculated R Elizabeth 34 degrees MUSE SYSTEM Calculated T Elizabeth 71 degrees MUSE SYSTEM INTERPRETATION Normal sinus [...] Echeverria MD ECG ORDERABLES Performing Organization Address City/[facility]/ZIP [facility] Phon e Number MUSE SYSTEM CK (08/29/2018 8:43 PM EDT) athologist [facility] CK, Total 61 0 - 160 [facility] unit/L [facility] Specimen Anatomical Collection Method Collection Time Receive d Time (Source) Location / / Volume Laterality Blood specimen Venous Draw / 08/29/2018 8:43 PM 2018 8:50 (specimen) Unknown EDT PM EDT Resulting Agency Comment Spec In Lab Liliana Echeverria MD CHEMISTRY ORDERABLES Performing Organization Address City/[facility] [place] [address] Troponin (08/29/2018 8:43 PM EDT) athologist Signature Troponin-T <0.01 0.00 - 0.00 [facility] ng/mL [facility] Comment: The 99th percentile for Troponin T is le ss than 0.01 ng/mL, any detectable cTnT concentration using this assay should be considered elevated. According to the third universal definit ion of myocardial infarction the following criteria with a clinical prese ntation consistent with acute myocardial ischemia meets the diagnosis for a myocardial infarction ([place]). Detection of a rise and/or fall of [...] additional sample may be indicated. Reference: Third [place] Definition of Myocardial Infarction. Journal of the [place] [employer] 2012;60:1581-98 Specimen Anatomical Collection Method Collection Time Receive d Time (Source) Location / / Volume Laterality Blood specimen Venous Draw / 08/29/2018 8:43 PM 2018 8:50 (specimen) Unknown EDT PM EDT Resulting Agency Comment Spec In Lab Liliana Echeverria MD CHEMISTRY ORDERABLES Performing Organization Address City/State/[place] [address] (ABNORMAL) Differential, Automated (08/29/2018 8:43 PM EDT) [facility] Method Time Signature Neutrophils % 61.3 % [facility] Neutr Abs (ANC) 5.36 1.70 - [facility] 6.10 [facility] x10(3)/[facility] LABORATORY Lymphocytes % 18.9 % [facility] Lymphocytes Abs 1.7 0.9 - 3.2 [facility] x10(3)/[facility] LABORATORY Monocytes % 11.7 % [facility] Monocyte Abs 1.0 (H) 0.3 - 0.9 [facility] x10(3)/[facility] LABORATORY Eosinophils % 6.8 % [facility] Eosinophils Abs 0.6 (H) 0.0 - 0.4 [facility] x10(3)/[facility] LABORATORY Basophils % 1.1 % [facility] Basophils Abs 0.1 0.0 - 0.1 [facility] x10(3)/[facility] LABORATORY Immature Gran % 0.20 % [facility] Comment: Immature granulocytes(IG's)percentage an d absolute count will include metamyelocytes, myelocytes, and promyelo cytes. Blood smears from CBCs yielding IG's will be scanned manually for concor dance. If this scan disagrees with the automated IG or if promyelocytes are not ed, a manual differential will be performed. Blanca Gran Abs 0.02 0.00 - 0.04 x10(3)/[facility] LABORATORY Specimen Anatomical Collection Method Collection Time Receive d Time (Source) Location / / Volume Laterality Blood specimen 08/29/2018 8:43 PM 019 8:50 (specimen) EDT PM EDT Resulting Agency Comment Spec In Lab Liliana Echeverria MD HEMATOLOGY ORDERABLES Performing Organization Address City/State/ZIP Code Phon e Number [place] [id number] (ABNORMAL) Hemogram (08/29/2018 8:43 PM EDT) Analysis Performed At Patho logist Time Signature WBC 8.8 4.0 - 9.5 [facility] x10(3)/[facility] LABORATORY RBC 4.06 4.00 - [facility] 5.21 [facility] x10(6)/[facility] LABORATORY Hemoglobin 12.5 11.7 - [facility] 15.5 gm/dL [facility] Hematocrit 35.6 (L) 35.7 - [facility] 45.8 % [facility] MCV 87.7 82.6 - [facility] 94.4 [facility] LABORATORY MCH 30.8 27.1 - [facility] 32.0 pg [facility] MCHC 35.1 (H) 31.7 - [facility] 35.0 gm/dL [facility] Platelets 235 145 - 357 [facility] x10(3)/[facility] LABORATORY RDWSD 41.7 37.0 - [facility] 46.0 [facility] RDWCV 13.1 11.5 - [facility] 14.1 % [facility] MPV 10.4 7.6 - 12.9 [facility] LABORATORY nRBC % Auto 0.0 % [facility] nRBC Abs Auto 0.000 0.000 - [facility] 0.000 [facility] x10(3)/[facility] LABORATORY Specimen Anatomical Collection Method Collection Time Receive d Time (Source) Location / / Volume Laterality Blood specimen 08/29/2018 8:43 PM 019 8:50 (specimen) EDT PM EDT Resulting Agency Comment Spec In Lab Liliana Echeverria MD HEMATOLOGY ORDERABLES Performing Organization Address [facility] Phon e Number [address] Prothrombin Time (08/29/2018 8:43 PM EDT) P athologist Signature PT 12.2 9.4 - 12.5 [facility] LABORATORY INR 1.1 [facility] Comment: An INR <2.0 [...] Echeverria MD HEMATOLOGY ORDERABLES Performing Organization Address City/[facility] Phon e Number [address] Magnesium (08/29/2018 8:43 PM EDT) P athologist Signature Magnesium 0.74 0.69 - 1.07 [facility] mmol/L [facility] Specimen Anatomical Collection Method Collection Time Receive d Time (Source) Location / / Volume Laterality Blood specimen 08/29/2018 8:43 PM 019 8:50 (specimen) EDT PM EDT Resulting Agency Comment Spec In Lab Liliana Echeverria MD CHEMISTRY ORDERABLES Performing Organization Address City/State/[place] [address] (ABNORMAL) Basic Metabolic Panel (non-fasting) (08/29/2018 8:43 PM EDT) P athologist Signature Glucose Lvl 193 65 - 199 [facility] mg/dL [facility] Comment: Diabetes: >=200 mg/dL plus symp toms BUN 22 (H) 8 - 18 mg/dL [facility] Creatinine 1.80 (H) 0.70 - 1.20 mg/dL [facility] Sodium 134 (L) 135 - 145 mmol/L [facility] Potassium 3.3 (L) 3.5 - 5.0 mmol/L [facility] Comment: Please note: ??Patients with WBC >100,00 0 may have falsely elevated Potassium levels. ??For accurate Potassium quantif ication in these patients send serum separator tube (gold top) for subsequent determinations. ??Contact the Clinical Chemistry Laboratory if there are any qu estions. Chloride 101 98 - 107 mmol/L [facility] CO2 22 22 - 31 mmol/L [facility] Anion Gap 11 5 - 15 mmol/L [facility] Calcium 8.3 (L) 8.5 - 10.5 mg/dL [facility] Estimated GFR 28 (L) >=60 mL/min/1.73 m?? [facility] Comment: The eGFR was calculated using the CKD-EP I equation. As with all creatinine based estimates of kidney function, eGFR values calculated with the CKD-EPI equation are not accurate in patients wi th acute kidney failure, extremes of body mass or the acutely ill. [email or web address]://[email or web address]/[facility]MCnkf eGFR 33 (L) >=60 mL/min/1.73 m?? [facility] Comment: The eGFR was calculated using the CKD-EP I equation. As with all creatinine based estimates of kidney function, eGFR values calculated with the CKD-EPI equation are not accurate in patients wi th acute kidney failure, extremes of body mass or the acutely ill. [email or web address] Specimen Anatomical Collection Method Collection Time Receive d Time (Source) Location / / Volume Laterality Blood specimen 08/29/2018 8:43 PM 019 8:50 (specimen) EDT PM EDT Resulting Agency Comment Spec In Lab Liliana Echeverria MD CHEMISTRY ORDERABLES Performing Organization Address City/[facility]/[place] [address] POCT Glucose (08/29/2018 6:31 PM EDT) athologist Signature POC Glucose 115 65 - 199 [facility] mg/dL [facility] Comment: Supplemental ranges: <140 mg/dL before meals <180 mg/dL all other times of the day Specimen Anatomical Collection Method Collection Time Receive d Time (Source) Location / / Volume Laterality Blood specimen 08/29/2018 6:31 PM 019 6:31 (specimen) EDT PM EDT Liliana Echeverria MD POINT OF CARE TEST ORDERABLE S Performing Organization Address City/[facility]/[place] [address] documented in this encounter [...] on Thu09/12/18 at 0900, Until Discontinued, Routine BUpivacaine (PF) (MARCAINE) 0.5 Given 09/01/2018 3:35 PM EDT 5 m Ls 19- Surgical Site % (5 mg/mL) injection ONCE PRN, Starting on Thu09/01/18 at 1606, Until Thu09/14/18 at 1740, Intra-Operative (Intra-Procedure), Routine calcium carbonate (Tums) chewable tablet 500 Given 6:42 AM EDT 500 mg mg 500 mg, Oral, 3 TIMES DAILY PRN, Starting on Thu09/06/18 at 2146, Until Thu09/14/18 at 1740, Heartburn, Routine Given 09/07/2018 12:40 AM EDT 500 mg heparin (Porcine) subcutaneous injection Given 019 9:00 [...] Given 09/11/2018 12:26 PM EDT 0.4 mg iodixanol (VISIPAQUE) 320 mg Given 09/01/2018 4:32 PM 29.5 mLs 19- Surgical Site iodine/mL injection EDT ONCE PRN, Starting on Thu09/01/18 at 1632, Until Thu09/14/18 at 1740, Intra-Operative (Intra-Procedure), Routine ipratropium-albuterol (DUONEB) 0.5 mg-3 mg(2.5 mg [...] Discontinued, Remove lidocaine 5 %(700 mg/patch) patch lidocaine (XYLOCAINE) 10 mg/mL Given 09/01/2018 3:35 PM EDT 5 mL s 19- Surgical Site (1 %) injection ONCE PRN, Starting on Thu09/01/18 at 1535, Until Thu09/14/18 at 1740, Intra-Operative (Intra-Procedure), Routine NIFEdipine (ADALAT CC) CR tablet 30 [...] Given 09/13/2018 9:51 AM EDT 5 mLs documented in this encounter Active and Recently Administered Medications Times are shown in EDT. Scheduled Medication Order 09/12/2018 09/13/2018 09/14/2018 acetaminophen (TYLENOL) tablet 500 mg 1685 (Given - Pr ovider: Candida Harley RN) 4758 (Given - Provider: Candida melendez RN)1318 (Given - Provider: Kacie Bills RN)1858 (Given - Provider: Kacie Bills RN)2318 (Given - Provider: Gianna Horn, LAWRENCE) 0544 (Given - Provider: Gianna Horn RN)1208 [...] (Given - P rovider: Jeana Birmingham RN) 09 (Not Given - [...] Kacie Bills RN)2058 (Given - Provider: Gianna Horn, LAWRENCE) 0900 (Given - Provider: Katy Sterling RN) 5,000 Units, Subcutaneous, EVERY 12 HOUR S SCHEDULED (2 times per day), First dose on Thu09/08/18 at 0900, Until Discontinued, Routine labetalol (NORMODYNE) tablet 200 mg 0810 (Given - Prov ider: Jeana Birmingham RN)2034 (Given - Provider: Geeta Beltran RN) 0949 (Given - Provider: Kacie Bills RN)2056 (Given - Provider: Gianan Honr, LAWRENCE) 0909 (Given - Provider: Katy Sterling RN) 200 mg, Oral, 2 TIMES DAILY, First dose on Thu09/11/18 at 1200, Until Discontinued, Routine lidocaine (LIDODERM) 5 % patch 3 patch(Linked Group 1) 2220 (Patch Applied - Provider: Candida Harley RN) 214 (Not Given - Provider: Gianna Horn, LAWRENCE [...] Harley, LAWRENCE) 1039 (Given - Provider: Valery Mo RN)2057 (Given - Provider: Gianna Horn, LAWRENCE) 1026 (Given - Provider: Grace Phillip RN) 30 mg, Oral, 2 TIMES DAILY, First dose o n Thu09/11/18 at 1215, Until Discontinued, DO NOT CRUSH OR OPEN, Routine pantoprazole (PROTONIX) injection 40 mg 0812 (Given - Provider: Jeana Birmingham RN) 0950 (Given - Provider: Kacie Bills RN) 0900 (Gi ward - Provider: Katy Sterling RN) 40 mg, Intravenous, DAILY, First dose on Thu09/08/18 at 1115, Until Discontinued polyethylene glycol (MIRALAX) packet 17 g 08 (Given - Provider: Jeana Birmingham RN) 09 [...] 8.6-50 mg per tablet 2 tab let 811 (Given - Provider: Jeana Birmingham RN)2100 (Not Given - Provider: Geeta Beltran RN - Reason: Patient/family refused) 0949 (Given - Provider: Kacie Bills RN)2100 (Not Given - Provider: Gianna Horn RN - Reason: Patient/family refused) 0900 (Not Given - Provider: Katy finley RN - Reason: Patient/family refused) 2 tablet, Oral, 2 TIMES DAILY, First dos e on Thu09/12/18 at 0900, Until Discontinued, Routine sodium chloride 0.9 % flush 5 mL 811 (Given - Provide r: Jeana Birmingham RN)2037 (Given - Provider: Geeta Beltran RN) 0951 (Given - Provider: Kacie Bills RN)2100 (Given - Provider: Gianna Horn RN) 0901 (Given - Provider: Katy Sterling, RN) 5 mL, Intravenous, 2 TIMES DAILY, First dose on Thu08/29/18 at 2100, Until Discontinued, Routine PRN Medication Order 09/12/2018 09/13/2018 09/14/2018 calcium carbonate (Tums) chewable tablet 500 mg 0642 ( Given - Provider: Patrizia Peng, LAWRENCE) 500 mg, Oral, 3 TIMES DAILY PRN, Startin g Thu09/06/18 at 2146, Until Thu09/14/18 at 1740, Heartburn, Routine HYDROmorphone (DILAUDID) injection 0.4 mg 0758 (Given - Provider: Jeana Birmingham, RN) 0.4 mg, Intravenous, EVERY 1 HOUR [...] Kacie Bills RN)2319 (Given - Provider: Gianna Horn, LAWRENCE) 0544 (Given - Provider: Gianna Horn, LAWRENCE) 5 mg, Oral, EVERY 4 HOURS PRN, [...] patch
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
--- OUTSIDE RECORDS SUMMARY | 2022-02-22 23:38 | XMS_ITS | Encounter Summary ---
:1950 Author Organization [facility] [address] Care Team Providers Name Role Phone Sanjuanita Lee MD Primary Care Provider Encounter Details Date Type Department Care Team Description 07/19/2018 Office Visit Nephrology Tyron Kemp; Hypertension at [facility] MD Wanda Hypokalemia; [facility] Vitamin D deficiency; [facility] Hypertensive kidney disease [place] [address] [place] [address] [phone] Social History Tobacco Use Types Packs/Day Years [...] Reading Time Taken Comments Blood Pressure 132/63 07/19/2018 10:01 AM EDT Pulse 75 07/19/2018 10:01 AM EDT Temperature - - Respiratory Rate - - Oxygen Saturation - - Inhaled Oxygen Concentration - - Weight 47.6 kg (105 lb) 07/19/2018 10:01 AM EDT Height 152.4 cm (5') 07/19/2018 10:01 AM EDT Body Mass Index 20.51 07/19/2018 10:01 AM EDT documented in this encounter Progress Notes Tyron Kepm MD - 07/19/2018 10:00 AM EDT PATIENT: Charlene Harmon : 1950 Interval History: Patient present log of home BP with range in the 120-170s. She had one episode of acute dyspnea relieved with furosemide since last encounter. She has not heard of any further plans per vascular. 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 Most recently . Recent admissions with hypertensive emergency, suspect that acute rise likely hemodynamic in that setting. Known bilateral YING. 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 C3C4 And SPEP/UPEPunremarkable UPC 3.8g a. No known DM. Plan: Will send for formal UA and quantitative UPC and microalbumin. Will also send ANCA to [facility] serological [facility]. Losartan held given recent fluctuation in eGFR #Hypokalmia K 3.1. Instructed Pt to restart K supplement Plan: Check Mg. Will repeat BMP in 1 week external at [facility]. ?? #Hemodynamics Blood Pressure: 132/63. Diligent home recordings are reviewed. SBP range between the 110's-160s mmHg. She has had 1 further incident with acute SOB. She did not go to hospital but took furosemide and symptoms resolved. Possible willy-vascular HTN (known bilateral stenosis). Given patient's age primary hypertension is also possible. Patient set to see vascular at the end of August. Antihypertensives: Carvedilol 37.5 BID, Amlodipine 10, Furosemide Q48 hours. Plan: Patient to continue to follow home pressures. Will conduct 24 hours ABPM when we have an available monitor. Will titrate medications as able (kideny function allowing) for goal < 130/80mmHg. Will touch base with vascular to re-visit revascularization with vascular surgery. Volume Status: Euvolemic (reports remote history of edema in in bilateral lower extremities ?? #Hemoglobin Check CBC Goal Hgb 10-12g/dl, Ferritin>100ng/ml, TSAT>20% ?? #Acid/Base status Will check Bicarb Would Add NaHCO3 if serum bicarb persistently < 22mmol/l ?? #Bone Mineral Health PTh slightly elevated. Will assess Vit D Stage 3 PTH: 35-70 pg/ml ?Phos 2.7-4.6 ??Ca 8.5-10.5mg/dl [facility] Follow-Up Plan: 6 weeks. Past Medical History: Diagnosis Date ??? AAA (abdominal aortic aneurysm) [id number] angiogram; 3.2 cm infrarenal ??? Constipation ??? Dyslipidemia ??? Hypertension ??? Insomnia ??? Peripheral vascular disease ??? Renal artery stenosis R; per 2009 angiogram Past Surgical History: Procedure Laterality Date ??? HYSTERECTOMY ??? PRO UPPER GI ENDOSCOPY, DIAGNOSTIC 01/20/2014 EGD, UPPER GI ENDOSCOPY performed by Corby Cano MD at [facility] ENDOSCOPY ??? PRO UPPER GI ENDOSCOPY, DIAGNOSTIC N/A 07/28/2017 EGD, UPPER GI ENDOSCOPY performed by Snow Liao MD at [facility] ENDOSCOPY Family History Problem Relation Age of Onset ??? Cancer Mother ??? 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 aspirin 81 mg Tablet, Delayed Release (E.C.) Take 81 mg by mouth daily. ??? levothyroxine (SYNTHROID) 25 mcg Tablet Take 25 mcg by mouth daily. ??? furosemide (LASIX) 20 mg Tablet Take 20 mg by mouth every other day. ??? carvedilol (COREG) 25 mg Tablet Take 37.5 mg by mouth daily. Patient takes 1 1/2 tablets daily. ??? losartan (COZAAR) 25 mg Tablet Take 25 mg by mouth daily. Patient takes only as needed for shortness of breath ??? atorvastatin (LIPITOR) 40 mg Tablet TAKE ONE TABLET BY MOUTH EVERY DAY 3 ??? cholecalciferol, Vitamin D3, (VITAMIN D) 1,000 unit Tablet Take 1,000 Units by mouth. ??? gabapentin (NEURONTIN) 800 mg Tablet Take 800 mg by mouth nightly. ??? amlodipine (NORVASC) 10 mg tablet Take 10 mg by mouth daily. No current facility-administered medications on file prior to visit. MEDICATIONS: No Known Allergies ROS: Constitutional - No fevers, chills, weight loss Skin - No rash or itchy skin HEENT - No headaches, visual changes, oral mucosa dryness Resp - One episode of acute dyspnea. CV - No chest pain, leg swelling, difficulty breathing lying flat GI - No nausea, vomiting,change in bowel habits/abdominal pain - No change in urine output. No pain urinating or blood in urine. Neuro - No weakness. No numbness/ tingling in extremities. MSK- No joint pain/swelling PHYSICAL EXAM: Last value Temperature Heart Rate Heart Rate: 75 Blood Pressure BP: 132/63 Respiratory Rate SpO2 Appearance - Alert, Comfortable. [...] Neuro - No asterixis. STUDIES: Labs: CBC: No results for input(s): WBC, HGB, PLATELET in the last 7068 hours. Chemistry: Recent Labs 07/19/18 0907 06/14/18 1022 02/24/18 1442 NA 139 140 -- K 3.1* 3.9 -- CL 100 101 -- CO2 24 23 -- BUN 32* 48* -- CREATININE 1.97* 2.06* 1.47* GLUCOSE 115 138 -- Recent Labs 07/19/18 0907 06/14/18 1022 CALCIUM 9.1 9.0 LFT's: Recent Labs 06/14/18 1022 BILITOT 0.4 ALBUMIN 3.9 ALKPHOS 57 ALT 11 AST 19 Tyron Kemp MD, MPH Section of Nephrology #[id number] documented in this encounter Plan of Treatment Scheduled Procedures Name Priority Associated Diagnoses Date/Time EGD, UPPER GI ENDOSCOPY Gastroesophageal reflux disease, esophagitis presence not specifi ed documented as of this encounter Procedures Procedure Name Priority Date/Time Associated Comments Diagnosis PROTEIN/CREATININE Routine 07/19/2018 10:00 Creatinine Resul ts for this RATIO, URINE AM EDT elevation procedure are i n the results section. U ALBUMIN/CRE RATIO Routine 07/19/2018 10:00 Creatinine Resu lts for this AM EDT elevation procedure are i n the results section. URINALYSIS WITHOUT Routine 07/19/2018 10:00 Creatinine Resul ts for this MICROSCOPIC AM EDT elevation procedure are i n the results section. documented in this encounter Results (ABNORMAL) Basic Metabolic Panel (non-fasting) (2018 12:26 PM EDT) P athologist Signature Glucose Lvl 121 65 - 199 [facility] mg/dL [facility] Comment: Diabetes: >=200 mg/dL plus symp toms BUN 33 (H) 8 - 18 mg/dL [facility] Creatinine 2.72 (H) 0.70 - 1.20 mg/dL [facility] Sodium 140 135 - 145 mmol/L [facility] Potassium 3.7 3.5 - 5.0 mmol/L [facility] Comment: Please note: ??Patients with WBC >100,00 0 may have falsely elevated Potassium levels. ??For accurate Potassium quantif ication in these patients send serum separator tube (gold top) for subsequent determinations. ??Contact the Clinical Chemistry Laboratory if there are any qu estions. Chloride 105 98 - 107 mmol/L [facility] CO2 19 (L) 22 - 31 mmol/L [facility] Anion Gap 16 (H) 5 - 15 mmol/L [facility] Calcium 9.5 8.5 - 10.5 mg/dL [facility] Estimated GFR 17 (L) >=60 mL/min/1.73 m?? [facility] Comment: The eGFR was calculated using the CKD-EP I equation. As with all creatinine based estimates of kidney function, eGFR values calculated with the CKD-EPI equation are not accurate in patients wi th acute kidney failure, extremes of body mass or the acutely ill. http://[employer]/[facility] eGFR 20 (L) >=60 mL/min/1.73 m?? [facility] Comment: The eGFR was calculated using the CKD-EP I equation. As with all creatinine based estimates of kidney function, eGFR values calculated with the CKD-EPI equation are not accurate in patients wi th acute kidney failure, extremes of body mass or the acutely ill. http://[employer]/[facility] Specimen Anatomical Collection Method Collection Time Receive d Time (Source) Location / / Volume Laterality Blood specimen 2018 12:26 9 (specimen) PM EDT 12:46 PM EDT Resulting Agency Comment Spec In Lab Tyron Kemp MD CHEMISTRY ORDERABLES Performing Organization Address City/State/[place] [address] (ABNORMAL) U Albumin/Cre Ratio (07/19/2018 10:00 AM EDT) [facility] Method Time Signature Alb/Cr Ratio, 3,857 (H) 0 - 29 [facility] Random mcg/mg Cr [facility] Comment: Reference Ranges: <30 mcg/mg: Normal 30-300 mcg/mg: Moderately increased albu minuria.* >300 mcg/mg: Severely increased albuminu adwoa. * ACEI or ARB recommended if diabetic; s uggested if BP>130/80 without diabetes ACEI or ARB strongly recommended if di abetic; recommended if BP>130/80 without diabetes Two of three specimens collected within a 3 to 6 month period should be abnormal before considering a patient to have albuminuria. Transient causes: exercise, fever, infection, CHF, marked hyperglycemia or hypertension. Persistent albuminuria indicates CKD and is an independent risk factor for ASCVD. ADA Standards of Medical Care in Diabete s-2016; KDIGO: Kidney International Supplements (2012) 2, 357? 362 U Albumin Conc, Random 2,391.6 mg/L [facility] U Creatinine 62 mg/dL [facility] Specimen Anatomical Collection Method Collection Time Receive d Time (Source) Location / / Volume Laterality Urine specimen 07/19/2018 10:00 9 (specimen) AM EDT 11:48 AM EDT Resulting Agency Comment Spec In Lab Tyron Kemp MD URINE ORDERABLES Performing Organization Address City/State/[place] [address] (ABNORMAL) Protein/Creatinine Ratio, urine (07/19/2018 10:00 AM EDT) Analysis Performed At Patho logist Time Signature U Creatinine 62 mg/dL [facility] U Protein Ran 309 (H) 0 - 12 [facility] Prot/Cre Ratio 5.0 ratio [facility] Specimen Anatomical Collection Method Collection Time Receive d Time (Source) Location / / Volume Laterality Urine specimen 07/19/2018 10:00 9 (specimen) AM EDT 11:48 AM EDT Resulting Agency Comment Spec In Lab Tyron Kemp MD URINE ORDERABLES Performing Organization Address City/[facility]/[place] [address] (ABNORMAL) Urinalysis without microscopic (07/19/2018 10:00 AM EDT) Patholo gist Method Time Signature Glucose UA Negative Negative [facility] mg[facility]dL [facility] Protein UA >=500 (A) Negative [facility]dL [facility] Bilirubin UA Negative Negative [facility] mg/dL [facility] Comment: Clinical correlation required for positi ve Urine Bilirubin results as false positive may occur with some drugs and d rug related products. If a false positive is suspected a serum total bili blandon should be considered if clinically indicated. Urobilinogen UA Normal Normal mg/dL [facility] pH UA 6.0 5.0 - 8.0 [facility] Blood UA Small (A) Negative mg/dL [facility] Ketones UA Negative Negative mg/dL [facility] Nitrite UA Negative Negative [facility] Leukocytes UA Small (A) Negative [facility] Appearance UA Clear Clear [facility] Spec [place] UA 1.010 1.002 - 1.030 [facility] Color UA Yellow Yellow [facility] Specimen Anatomical Collection Method Collection Time Receive d Time (Source) Location / / Volume Laterality Urine specimen 07/19/2018 10:00 9 (specimen) AM EDT 11:48 AM EDT Resulting Agency Comment Spec In Lab Tyron Kemp MD URINE ORDERABLES Performing Organization Address City/[facility]/ZIP Code Phon e Number [address] Proteinase-3 Antibody (07/19/2018 9:07 AM EDT) P athologist Signature PR3 Ab 2.1 <=20.0 [facility]ORY Specimen Anatomical Collection Method Collection Time Receive d Time (Source) Location / / Volume Laterality Blood specimen 07/19/2018 9:07 AM 019 7:30 (specimen) EDT AM EDT Resulting Agency Comment Spec In Lab Tyron Kemp MD CHEMISTRY ORDERABLES Performing Organization Address City/[facility]/ZIP Code Phon e Number [address] Myeloperoxidase Ab (07/19/2018 9:07 AM EDT) P athologist Signature MPO Ab <2.0 <=20.0 [facility]ORY Specimen Anatomical Collection Method Collection Time Receive d Time (Source) Location / / Volume Laterality Blood specimen 07/19/2018 9:07 AM 019 7:30 (specimen) EDT AM EDT Resulting Agency Comment Spec In Lab Tyron Kemp MD CHEMISTRY ORDERABLES Performing Organization Address City/[facility]/ZIP Code Phon e Number [address] Cytoplasmic Neutrophilic Ab (07/19/2018 9:07 AM EDT) P athologist Signature C-ANCA Negative Negative [facility] Comment: Test Performed by: [facility] [address] [place], [place] [address] P-ANCA Negative Negative [facility] Comment: Negative for cANCA and pANCA patterns by immunofluorescence. ADDITIONAL INFORMATIO N This test was developed and its performa nce characteristics determined by [facility] in a manner co nsistent with CLIA requirements. This test has not been cher ared or approved by the U.S. Food and Drug Administration. Test Performed by: [facility] [address] [place], [place] [address] Specimen Anatomical Collection Method Collection Time Receive d Time (Source) Location / / Volume Laterality Blood specimen 07/19/2018 9:07 AM 019 (specimen) EDT 11:06 AM EDT Resulting Agency Comment Spec In Lab Tyron Kemp MD CHEMISTRY ORDERABLES Performing Organization Address City/State/Z[place] [address] (ABNORMAL) Basic Metabolic Panel (non-fasting) (07/19/2018 9:07 AM EDT) athologist Signature Glucose Lvl 115 65 - 199 [facility] mg/dL [facility] Comment: Diabetes: >=200 mg/dL plus symp toms BUN 32 (H) 8 - 18 mg/dL [facility] Creatinine 1.97 (H) 0.70 - 1.20 mg/dL [facility] Sodium 139 135 - 145 mmol/L [facility] Potassium 3.1 (L) 3.5 - 5.0 mmol/L [facility] Comment: Please note: ??Patients with WBC >100,00 0 may have falsely elevated Potassium levels. ??For accurate Potassium quantif ication in these patients send serum separator tube (gold top) for subsequent determinations. ??Contact the Clinical Chemistry Laboratory if there are any qu estions. Chloride 100 98 - 107 mmol/L [facility] CO2 24 22 - 31 mmol/L [facility] Anion Gap 15 5 - 15 mmol/L [facility] Calcium 9.1 8.5 - 10.5 mg/dL [facility] Estimated GFR 25 (L) >=60 mL/min/1.73 m?? [facility] Comment: The eGFR was calculated using the CKD-EP I equation. As with all creatinine based estimates of kidney function, eGFR values calculated with the CKD-EPI equation are not accurate in patients wi th acute kidney failure, extremes of body mass or the acutely ill. http://[employer]/[facility] eGFR 29 (L) >=60 mL/min/1.73 m?? [facility] Comment: The eGFR was calculated using the CKD-EP I equation. As with all creatinine based estimates of kidney function, eGFR values calculated with the CKD-EPI equation are not accurate in patients wi th acute kidney failure, extremes of body mass or the acutely ill. http://[employer]/[facility]f Specimen Anatomical Collection Method Collection Time Receive d Time (Source) Location / / Volume Laterality Blood specimen 07/19/2018 9:07 AM 019 9:19 (specimen) EDT AM EDT Resulting Agency Comment Spec In Lab Tyron Kemp MD CHEMISTRY ORDERABLES Performing Organization Address City/State/[place] [address] documented in this encounter Visit Diagnoses Diagnosis Creatinine elevation Other nonspecific findings on examinatio n of blood Hypokalemia Hypopotassemia Vitamin D deficiency Unspecified vitamin D deficiency Hypertensive kidney disease with CKD sta ge IV Unspecified hypertensive kidney disease with chronic kidney disease stage I through stage IV, or unspecified documented in this encounter Care Teams Associate Programmer Relationship Specialty Start Date End Date Sanjuanita Lee MD PCP - General 03/05/13 12/23/[address] [place] [address] documented as of this encounter
--- OUTSIDE RECORDS SUMMARY | 2022-02-22 23:38 | XMS_ITS | Encounter Summary ---
:1950 Author Organization [facility] [place] [address] Care Team Providers Name Role Phone Sanjuanita Lee MD Primary Care Provider Encounter Details Date Type Department Care Team Description 06/15/2018 [facility] [place] [address] [place] [address] [phone] Social History Tobacco Use Types Packs/Day Years [...] as of this encounter Visit Diagnoses Diagnosis Vasculitis Arteritis, unspecified documented in this encounter Care Teams Mechanical Striper Relationship Specialty Start Date End Date Sanjuanita Lee MD PCP - General 03/05/13 12/23/[address] [place] [address] documented as of this encounter
--- OUTSIDE RECORDS SUMMARY | 2022-02-22 23:38 | XMS_ITS | Encounter Summary ---
:1950 Author Organization [facility] [place] [address] Care Team Providers Name Role Phone Sanjuanita Lee MD Primary Care Provider Reason for Visit Consultation (Routine) - Closed Specialty Diagnoses / Procedures Referred By Contact Refer red To Contact Vascular Surgery Diagnoses r/o YING, small AAA, now hard to treat HTN, rise in creatinine Sanjuanita Lee MD [facility] [address]v [address] [place], [place] [id number] [place] [id number] Referral ID Status Reason Start Date Expiration Date Visits V isits Requested Authorized [id number] Closed Consult, 01/29/2018 01/29/2019 1 1 [facility] Encounter Details Date Type Department Care Team Description 02/24/2018 Office Visit Vascular Surgery at [facility], Ab Makenzie dominal aortic [facility] aneurysm (AAA) without [facility] [address], [place] VASCULAR SURGERY [id number] [place] [address] Social History Tobacco Use Types Packs/Day Years [...] Sign Reading Time Taken Comments Blood Pressure 188/73 02/24/2018 1:36 PM EDT Pulse 77 02/24/2018 1:36 PM EDT Temperature - - Respiratory Rate - - Oxygen Saturation 96% 02/24/2018 1:36 PM EDT Inhaled Oxygen Concentration - - Weight 49 kg (108 lb) 02/24/2018 1:36 PM EDT reported Height 153.7 cm (5' 0.5) 02/24/2018 1:36 PM EDT report ed Body Mass Index 20.75 02/24/2018 1:36 PM EDT documented in this encounter Progress Notes Isac Moody MD - 02/24/2018 1:30 PM EDT OUTPATIENT VASCULAR SURGERY CONSULTATION Reason for Visit: Renovascular hypertension History of Present Illness: This is a 67 y.o. female with recently difficult to control blood pressure. Patient underwent a duplex of her renal arteries which demonstrated bilateral renal artery stenosis. Her antihypertensive medications currently include doxazosin and amlodipine. She denies any history of palpitations headaches. reports that she has quit smoking. She smoked 0.50 packs per day. She quit smokeless tobacco use about 5 years ago. Patient Active Problem List Diagnosis Code ??? Acute hepatitis B17.9 ??? Viral hepatitis B acute B16.9 ??? Abdominal aortic aneurysm (AAA) without rupture I71.4 Current Outpatient Medications: ??? atorvastatin (LIPITOR) 40 [...] for Thrombosis, Bleeding Disorders Physical Exam: BP 188/73 (BP Location (NBP): Left arm, Patient Position: Sitting, BP Cuff Sizes: Adult (25-34 cm)) Pulse 77 Ht 153.7 cm (5' 0.5) Comment: reported Wt 49 kg (108 lb) Comment: reported SpO2 96% BMI 20.75 kg/m?? General - NAD, appears stated age Neuro - Alert and Oriented, Motor Sensory grossly intact Skin - No prominent markings or lesions Ear, Nose, Throat - No masses, No lesions Cardiac - RRR, no murmurs Lungs - Clear Abd - Soft, NT, ND, No palpable pulsatile masses Musculoskeletal- full ROM upper and lower extremities [...] of 3.1 cm. No flowsheet data found. Assessment and Plan: The patient has a [...] that while intervention is an option she is certainly not maximized her medical therapy the current time. As such our tentative plan is to follow her aneurysm we will repeat a duplex of this in 6 months. Would be appropriate to maximize her medical therapy with regards to controlling her hypertension if her creatinine were to become elevated or blood pressure is difficult to control and then can consider renal artery intervention. I will see her back in the office in 6 months. documented in this encounter Plan of Treatment Scheduled Procedures Name Priority Associated Diagnoses Date/Time EGD, UPPER GI ENDOSCOPY Gastroesophageal reflux disease, esophagitis presence not specifi ed documented as of this encounter Procedures Procedure Name Priority Date/Time Associated Diagnosis Comme nts CREATININE STAT 02/24/2018 2:42 PM Abdominal aortic Resul ts for this EDT aneurysm (AAA) procedure are in the without rupture results sect ion. documented in this encounter Results (ABNORMAL) Creatinine (02/24/2018 2:42 PM EDT) Analysis Performed At Patho logis Time Signature Creatinine 1.47 (H) 0.70 - [facility] 1.20 mg/dL [facility] Estimated GFR 36 (L) >=60 [facility] mL/min/1.7 [facility] 3 ?[facility] Comment: The eGFR was calculated using the CKD-EP I equation. As with all creatinine based estimates of kidney function, eGFR values calculated with the CKD-EPI equation are not accurate in patients wi th acute kidney failure, extremes of body mass or the acutely ill. [email or web address] eGFR 42 (L) >=60 mL/min/1.73 m?? [facility] Comment: The eGFR was calculated using the CKD-EP I equation. As with all creatinine based estimates of kidney function, eGFR values calculated with the CKD-EPI equation are not accurate in patients wi th acute kidney failure, extremes of body mass or the acutely ill. [email or web address] Specimen Anatomical Collection Method Collection Time Receive d Time (Source) Location / / Volume Laterality Blood specimen 02/24/2018 2:42 PM 018 3:00 (specimen) EDT PM EDT Resulting Agency Comment Spec In Lab Isac Moody MD CHEMISTRY ORDERABLES Performing Organization Address City/State/[place] [address] documented in this encounter Visit Diagnoses Diagnosis Abdominal aortic aneurysm (AAA) without rupture documented in this encounter Care Teams Christmas Tree Grader Relationship Specialty Start Date End Date Sanjuanita Lee MD PCP - General 03/05/13 12/23/[address] [place] [address] documented as of this encounter
--- OUTSIDE RECORDS SUMMARY | 2022-02-22 23:38 | XMS_ITS | Encounter Summary ---
:1950 [place] [address] Care Team Providers Name Role Phone Sanjuanita Lee MD Primary Care Provider Encounter Details Date Type Department Care Team Description 02/24/2018 Hospital Encounter Vascular Lab at [facility], Hypertension, [facility] [place] [address] Social History Tobacco Use Types Packs/Day Years [...] Priority Date/Time Associated Diagnosis Comme nts RENAL DUPLEX Routine 02/24/2018 9:29 AM Hypertension, Results for this COMPLETE EDT unspecified type procedure a re in the results section. documented in this encounter Results Duplex Study Renal Arteries, Bilat (02/24/2018 9:29 AM EDT) Component Value Ref Test Analysis Performed At [facility] gist Range Method Time Signature VB Text Department: Vascular Surgery Lab [facility] Report Patient: [id number] (CHARLENE HARMON) CPT: 66039 ICD10: I10 Referring Physician: KYA CAUSEY MD ?? Phone: Indications: ??HTN, ? renal artery stenosis ICD10 Diagnosis Code: I10 Findings: Syl Renal Aorta ? PSV (cm/s): 95 ? EDV (cm/s): 0 Renal Artery Proximal, Right ? PSV (cm/s): 320 ? EDV (cm/s): 147 ? RAR: 3.4 ? RI: 0.54 Renal Artery Mid, Right ? PSV (cm/s): 37 ? EDV (cm/s): 14 ? RAR: 0.4 ? RI: 0.60 Renal Artery Distal, Right ? PSV (cm/s): 39 ? EDV (cm/s): 15 ? RAR: 0.4 ? RI: 0.62 Mid Pole Renal Parenchyma, Right ? PSV (cm/s): 13 ? EDV (cm/s): 6 ? RI: 0.53 Renal Hilum, Right ? AT (ms): 169 Kidney Length, Right ? Length (cm): 9.6 Renal Vein, Right ? Patent: Patent Renal Artery Ostium, Left ? PSV (cm/s): 185 ? EDV (cm/s): 41 Renal Artery Proximal, Left ? PSV (cm/s): 255 ? EDV (cm/s): 39 ? RAR: 2.7 ? RI: 0.85 Renal Artery Mid, Left ? PSV (cm/s): 215 ? EDV (cm/s): 45 ? RAR: 2.3 ? RI: 0.79 Renal Artery Distal, Left ? PSV (cm/s): 131 ? EDV (cm/s): 19 ? RAR: 1.4 ? RI: 0.85 Mid Pole Renal Parenchyma, Left ? PSV (cm/s): 46 ? EDV (cm/s): 11 ? RI: 0.75 Renal Hilum, Left ? AT (ms): 40 Kidney Length, Left ? Length (cm): 10.6 Renal Vein, Left ? Patent: Patent Interpretation: Right: Patent main renal artery with elevated velocities (PS V 320 cm/s) consistent with >60% stenosis. Renal artery ostium not well visualized to exclude more severe stenosis. Patent main renal vein. Left: Patent main renal artery with elevated velocities (PSV 255 cm/s) consistent with >60% stenosis. Patent main renal vein. Aorta: The aorta is aneurysmal with a maximum di ameter measurement of 3.1 cm. Comparison: ??No previous study in our vascular lab da tabase for comparison. Electronically Signed by: KYA CAUSEY MD on 2018-02-24 10: 28:49 AM VB Text End of Report [facility] Report Specimen (Source) Anatomical Collection Method Collection Time Re ceived Time Location / / Volume Laterality 02/24/2018 9:29 AM EDT Kya Causey MD VASCULAR ORDERABLES Performing Organization Address City/State/ZIP Code Phon e Number [facility] documented in this encounter Visit Diagnoses Diagnosis Hypertension, unspecified type documented in this encounter Care Teams Criminal Justice Professor Relationship Specialty Start Date End Date Sanjuanita Lee MD PCP - General 03/05/13 12/23/[address] [place] [address] documented as of this encounter
--- OUTSIDE RECORDS SUMMARY | 2022-02-22 23:38 | XMS_ITS | Encounter Summary ---
:1950 [place] [address] Care Team Providers Name Role Phone Sanjuanita Lee MD Primary Care Provider Encounter Details Date Type Department Care Team Description 05/14/2018 External Results Administration Jerson Kellogg, [address] [place] [address] [place], [place] [phone] (Wo rk) Social History Tobacco Use Types [...] Associated Diagnosis Comme nts ECG SCAN Routine 05/14/2018 documented in this encounter Results Scan Doc: ECG (05/14/2018) Narrative This result has an attachment that is no t available. Jerson Kellogg DO MEDIA MGR SCAN EXT ORDR/RSLT documented in this encounter Visit Diagnoses Not on filedocumented in this encounter Care Teams Collection Specialist Relationship Specialty Start Date End Date Sanjuanita Lee MD PCP - General 03/05/13 12/23/[address] [place] [address] documented as of this encounter
--- OUTSIDE RECORDS SUMMARY | 2022-02-22 23:38 | XMS_ITS | Encounter Summary ---
:1950 Author Organization [facility] [place] [address] Care Team Providers Name Role Phone Sanjuanita Lee MD Primary Care Provider Encounter Details Date Type Department Care Team Description 07/26/2018 Orders Only Nephrology Hypertension at Tyron Velasquez [facility] [place] [address] [place] [address] [phone] Social History Tobacco Use Types Packs/Day Years [...] encounter Progress Notes Tyron Kemp MD - 07/26/2018 9:42 AM EDT Was alerted by Lab in [facility] that patient had critical potassium of 2.9mmol/l. This down slightly from 3.1 on 07/19. Magnesium level at that time was WNL. Patient is using occasional furosemide (several times a week). Possible that this is a secondary aldosterone process in setting of bilateral renal artery stenosis. Instructed patient to begin KCL 20 Meq BID (Rx sent to [facility]) and we will repeat labs (BMP and urine electrolytes). documented in this encounter Plan of Treatment Scheduled Procedures Name Priority Associated Diagnoses Date/Time EGD, UPPER GI ENDOSCOPY Gastroesophageal reflux disease, esophagitis presence not specifi ed documented as of this encounter Visit Diagnoses Diagnosis Hypokalemia Hypopotassemia documented in this encounter Care Teams Pediatric Neurologist Relationship Specialty Start Date End Date Sanjuanita Lee MD PCP - General 03/05/13 12/23/[address] [place] [address] documented as of this encounter
--- OUTSIDE RECORDS SUMMARY | 2022-02-22 23:38 | XMS_ITS | Encounter Summary ---
:1950 Author Organization [facility] [place] [address] Care Team Providers Name Role Phone Sanjuanita Lee MD Primary Care Provider Encounter Details Date Type Department Care Team Description 05/14/2018 Telephone Cardiology Rashaun Gates MD [facility] [place] [address] CARDIOLOGY DEPT [phone] [place] [address] (Wo rk) Social History Tobacco Use Types [...] this encounter Miscellaneous Notes Telephone Encounter - Rashaun Gates - 05/14/2018 11:48 PM EST Received a call from Dr. Kellogg at [facility] regarding Mrs. Harmon, who is a 67 yo F with hitsory of HFrEF (EF 35%, followed by cardiology locally), bilateral YING, AAA who presented with sudden onset chest pain and shortness of breath. ECG with inferolateral ST-T wave changes. CXR and physical exam with CHF.Tn negative, Cr 2.18.She is requiring BiPAP. I suggested that she be diuresed. Cycle troponins. Given elevated Cr, she's at high risk of further renal dysfunction with cath. Given YING though and renal dysfunction, as well as CHF, should consider renal intervention (she says Dr. [facility] in vascular surgery). I made the above recommendations with the information provided to me over the phone and not able to interview or examine the patient myself. documented in this encounter Plan of Treatment Scheduled Procedures Name Priority Associated Diagnoses Date/Time EGD, UPPER GI ENDOSCOPY Gastroesophageal reflux disease, esophagitis presence not specifi ed documented as of this encounter Visit Diagnoses Not on filedocumented in this encounter Care Teams Emt/Paramedic Relationship Specialty Start Date End Date Sanjuanita Lee MD PCP - General 03/05/13 12/23/[address] [place] [address] documented as of this encounter
--- OUTSIDE RECORDS SUMMARY | 2022-02-22 23:38 | XMS_ITS | Encounter Summary ---
:1950 Author Organization [facility] [place] [address] Care Team Providers Name Role Phone Sanjuanita Lee MD Primary Care Provider Reason for Visit Consultation (Routine) - Closed Specialty Diagnoses / Procedures Referred By Contact Refer red To Contact Nephrology Diagnoses HYPERTENSION Sanjuanita Lee MD [facility] [address] [place] [id number] Referral ID Status Reason Start Date Expiration Date Visits V isits Requested Authorized [id number] Closed Consult, 05/10/2018 05/10/2019 1 1 [facility] Encounter Details Date Type Department Care Team Description 06/14/2018 Office Visit Nephrology Tyron Kemp Elevated ser um creatinine; Hypertension at [facility] [place] Wanda Renal artery stenosis; [facility] myra renal disease, stage 1 through stage 4 or unspecified chronic kidney disease [facility] [place] [address] [place] [address] [phone] Social History Tobacco Use Types Packs/Day Years [...] Sign Reading Time Taken Comments Blood Pressure 136/61 06/14/2018 8:43 AM EST Pulse 57 06/14/2018 8:43 AM EST Temperature - - Respiratory Rate - - Oxygen Saturation 96% 06/14/2018 8:43 AM EST Inhaled Oxygen Concentration - - Weight 48.1 kg (106 lb) 06/14/2018 8:43 AM EST Height 152.4 cm (5') 06/14/2018 8:43 AM EST Body Mass Index 20.7 06/14/2018 8:43 AM EST documented in this encounter Progress Notes Tyron Kemp MD - 06/14/2018 9:00 AM EST PATIENT: Charlene Harmon : 1950 REASON FOR CONSULTATION: Cr Elevation/ Hypertensive emergency. HPI: 67-year-old female presents to renal clinic for evaluation of poorly controlled blood pressure in the setting of bilateral renal artery stenosis and creatinine fluctuation. She has had multiple hospitalizations in the past 2 months with acute CHF exacerbations thought to be flash pulmonary edema in the setting of hypertensive emergency. Patient reports she had been healthy up until 4 years prior whenshe presented with acute hepatitis B. She was hospitalized and underwent antiviral therapy and believes to be in remission at this point. She denies known history of kidney disease. She denies diabetes. She also denies known cardiovascular disease such as heart attack stroke or peripheral arterial disease. She does not believe that she is prone to acute anxiety. She does not take xvci-mqu-ignujvj medicines. She believes her thin skin has thinned somewhat but denies rash or inflammatory joint symptoms. She diligently measures her blood pressure at home and reports the highest number she seen is beenin the 150s systolic. She reports in January 2018 she acutely developed swelling in her lower extremities and was started on furosemide for this which has resolved. Assessment/Plan: #GAEL on CKD 3b: CR up to 3.6mg/dl in 05/15 at outside facility. Most recently 1.47 w/in our system in 02/11 which is were she had ranged since 2017 consistent with CKD 3b at baseline. Recent admissions with hypertensive emergency, suspect that acute rise likely hemodynamic in that setting. Known bilateral YING. 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 Dipstick with +2 proteinuria. No known DM. Plan: Will send for formal UA and quantitative UPC and microalbumin. Will check C3C4 And SPEP/UPEP. Losartan held given recent fluctuation in eGFR #Hemodynamics Blood Pressure: 136/61. Diligent home recordings are reviewed. SBP range between the 110's-160s mmHg. Recent multiple admissions with hypertensive emergent picture with possible flash pulmonary edema. Possible willy-vascular HTN. Given patient's age primary hypertension is also possible. patient has established with vascular surgery who had considered revascularization, however recommended optimization of antihypertensive regimen. ( last seen by them prior to the episode of flash pulmonary edema. It should be noted that patient with recent CHF exacerbation were excluded by the CORAL study, which given patients current clinical course unsure to me whether we can use this this study as guidance with this patient. Patient has no known atherosclerotic disease (CAD/CVD or PAD). She does have known aneurysm in abdominal aorta currently under surveillance. History of Hep B also arises vasculitis possibilty . She is trying to adhere to low salt diet. Denies decongestant use ore other over the counter medications which can contribute. Antihypertensives: Carvedilol 37.5 BID, Amlodipine 10, Furosemide Q48 hours. Plan: Patient to continue to follow home pressures. Will conduct 24 hours ABPM when we have an available monitor. Will titrate medications as able (kideny function allowing) for goal < 130/80mmHg. Given recent admission with flash pulmonary edema with discuss candidacy for revascularization with vascular surgery. Volume Status: Euvolemic (reports remote history of edema in in bilateral lower extremities #Hemoglobin Check CBC Goal Hgb 10-12g/dl, Ferritin>100ng/ml, TSAT>20% #Acid/Base status Will check Bicarb Would Add NaHCO3 if serum bicarb persistently < 22mmol/l #Bone Mineral Health Check Ca/Phos and PTH Stage 3 PTH: 35-70 pg/ml Phos 2.7-4.6 Ca 8.5-10.5mg/dl Renal Clinic Follow-Up Plan: 4 weeks. Social history: Former tobacco use. Denies sigenificant ETOH or drug use Family History No known Family History of Chronic Kidney Disease. HTN is present in her sister. Unknown whether parents hypertensive. Past Medical History: Diagnosis Date ??? AAA (abdominal aortic aneurysm) [id number] angiogram; 3.2 cm infrarenal ??? Constipation ??? Dyslipidemia ??? Hypertension ??? Insomnia ??? Peripheral vascular disease ??? Renal artery stenosis R; per 2009 angiogram Past Surgical History: Procedure Laterality Date ??? HYSTERECTOMY ??? PRO UPPER GI ENDOSCOPY, DIAGNOSTIC 01/20/2014 EGD, UPPER GI ENDOSCOPY performed by Corby Cano MD at [facility] ENDOSCOPY ??? PRO UPPER GI ENDOSCOPY, DIAGNOSTIC N/A 07/28/2017 EGD, UPPER GI ENDOSCOPY performed by Snow Liao MD at [facility] ENDOSCOPY Family History Problem Relation Age [...] tablet Take 10 mg by mouth daily. ??? [DISCONTINUED] doxazosin (CARDURA) 4 mg Tablet ??? [DISCONTINUED] ascorbic acid, vitamin C, (VITAMIN C) 500 mg Tablet Take 500 mg by mouth daily. ??? [DISCONTINUED] Potassium Gluconate 595 mg (99 mg) Tablet Take by mouth. ??? [DISCONTINUED] calcium carbonate (TUMS) 200 mg calcium (500 mg) Tablet, Chewable Take 1 tablet by mouth daily. 1000 mg ??? [DISCONTINUED] aspirin 81 mg EC tablet Take 1 tablet by mouth daily. 30 tablet 3 ??? [DISCONTINUED] melatonin 3 mg Tab Take 10 mg by mouth nightly. No current facility-administered medications on file prior [...] Last value Temperature Heart Rate Heart Rate: 57 Blood Pressure BP: 136/61 Respiratory Rate SpO2 SpO2: 96 % Appearance - Alert, Comfortable. Skin - No exanthem. HEENT - Sclera white. Mucous membranes moist. Chest:. Lungs clear to ausculatation w/o wheezes/ rhonchi/ crackles. Heart - S1 and S2 clear w/o murmur, gallop, or rub. JVP not elevated. Abd - Soft. + BS. Prminant bruit. Non tender. Ext - . Warm. No cyanosis. No dependent edema. Neuro - No asterixis. STUDIES: Labs: CBC: No results for input(s): WBC, HGB, PLATELET in the last 7068 hours. Chemistry: Recent Labs 02/24/18 1442 CREATININE 1.47* No results for input(s): CALCIUM, MAGNESIUM, PHOS in the last 7068 hours. LFT's: No results for input(s): BILITOT, BILIDIR, ALBUMIN, ALKPHOS, ALT, AST in the last 7068 hours. Tyron Kemp MD, MPH Section of Nephrology #[id number] documented in this encounter Plan of Treatment Scheduled Procedures Name Priority Associated Diagnoses Date/Time EGD, UPPER GI ENDOSCOPY Gastroesophageal reflux disease, esophagitis presence not specifi ed documented as of this encounter Procedures Procedure Name Priority Date/Time Associated Comments Diagnosis PROTEIN/CREATININE Routine 06/14/2018 10:30 Elevated serum Res ults for this RATIO, URINE AM EST creatinine procedure are i n the results section. U ALBUMIN/CRE RATIO Routine 06/14/2018 10:30 Elevated serum Re sults for this AM EST creatinine procedure are i n the results section. PROTEIN Routine 06/14/2018 10:30 Elevated serum Results f or this ELECTROPHORESIS, URINE, AM EST creatinine proc edure are in RANDOM the results section. URINALYSIS WITHOUT Routine 06/14/2018 10:30 Elevated serum Res ults for this MICROSCOPIC AM EST creatinine procedure are i n the results section. IMMUNOGLOBULIN FREE Routine 06/14/2018 10:22 Elevated serum Re sults for this LIGHT CHAINS, SERUM AM EST creatinine procedur e are in the results section. CRP, ACUTE INFLAMMATION Routine 06/14/2018 10:22 Results for this AM EST procedure are i n the results section. PTH Routine 06/14/2018 10:22 Elevated serum Results f or this AM EST creatinine procedure are i n the results section. C3 COMPLEMENT Routine 06/14/2018 10:22 Elevated serum Results for this AM EST creatinine procedure are i n the results section. C4 COMPLEMENT Routine 06/14/2018 10:22 Elevated serum Results for this AM EST creatinine procedure are i n the results section. PROTEIN Routine 06/14/2018 10:22 Elevated serum Results f or this ELECTROPHORESIS, SERUM AM EST creatinine proce dure are in the results section. COMPREHENSIVE METABOLIC Routine 06/14/2018 10:22 Elevated seru m Results for this PANEL (NON-FASTING) AM EST creatinine procedur e are in the results section. documented in this encounter Results (ABNORMAL) Protein/Creatinine Ratio, urine (06/14/2018 10:30 AM EST) Analysis Performed At Patho logist Time Signature U Creatinine 78 mg/dL [facility] U Protein Ran 299 (H) 0 - 12 [facility] mg/dL [facility] Prot/Cre Ratio 3.8 ratio [facility] Specimen Anatomical Collection Method Collection Time Receive d Time (Source) Location / / Volume Laterality Urine specimen 06/14/2018 10:30 9 (specimen) AM EST 11:30 AM EST Resulting Agency Comment Spec In Lab Tyron Kemp MD URINE ORDERABLES Performing Organization Address City/[facility]/ZIP [place] [address] (ABNORMAL) Urinalysis without microscopic (06/14/2018 10:30 AM EST) [facility] Method Time Signature Glucose UA Negative Negative [facility] mg/dL [facility] Protein UA >=500 (A) Negative [facility] mg/dL [facility] Bilirubin UA Negative Negative [facility] mg/dL [facility] Comment: Clinical correlation required for positi ve Urine Bilirubin results as false positive may occur with some drugs and d rug related products. If a false positive is suspected a serum total bili blandon should be considered if clinically indicated. Urobilinogen UA Normal Normal mg/dL [facility] pH UA 6.0 5.0 - 8.0 [facility] Blood UA Negative Negative mg/dL [facility] Ketones UA Negative Negative mg/dL [facility] Nitrite UA Negative Negative [facility] Leukocytes UA Negative Negative [facility]ORY Appearance UA Clear Clear [facility] Spec Willard UA 1.013 1.002 - 1.030 [facility] Color UA Yellow Yellow [facility] Specimen Anatomical Collection Method Collection Time Receive d Time (Source) Location / / Volume Laterality Urine specimen 06/14/2018 10:30 9 (specimen) AM EST 11:30 AM EST Resulting Agency Comment Spec In Lab Tyron Kemp MD URINE ORDERABLES Performing Organization Address City/[facility]/ZIP Code Phon e Number [address] (ABNORMAL) Protein Electrophoresis, urine, random (06/14/2018 10:30 AM EST) [facility] Method Time Signature U Protein Ran 296 (H) 0 - 12 [facility] mg/dL [facility] U Albumin 80 % total [facility] U Globulin 20 % total [facility] U M Band None [facility] U PEP See Note [facility] Comment: There is no evidence of clonal free ligh t chains in this patient's urine sample. Specimen Anatomical Collection Method Collection Time Receive d Time (Source) Location / / Volume Laterality Urine specimen 06/14/2018 10:30 9 (specimen) AM EST 11:30 AM EST Resulting Agency Comment Spec In Lab Tyron Kemp MD URINE ORDERABLES Performing Organization Address City/State/[place] [address] (ABNORMAL) U Albumin/Cre Ratio (06/14/2018 10:30 AM EST) [facility] Method Time Signature Alb/Cr Ratio, 2,910 (H) 0 - 29 [facility] Random mcg/mg Cr [facility] Comment: Reference Ranges: <30 mcg/mg: Normal [...] 2, 357? 362 U Albumin Conc, Random 2,269.7 mg/L [facility] U Creatinine 78 mg/dL [facility] Specimen Anatomical Collection Method Collection Time Receive d Time (Source) Location / / Volume Laterality Urine specimen 06/14/2018 10:30 9 (specimen) AM EST 11:30 AM EST Resulting Agency Comment Spec In Lab Tyron Kemp MD URINE ORDERABLES Performing Organization Address City/State/ZIP Code Phon e Number [address] CRP, acute inflammation (06/14/2018 10:22 AM EST) athologist Signature CRP <0.2 <=4.9 mg/L [facility] Specimen Anatomical Collection Method Collection Time Receive d Time (Source) Location / / Volume Laterality Blood specimen Venous Draw / 06/14/2018 10:22 06/14/19 19 (specimen) Unknown AM EST 10:31 AM EST Resulting Agency Comment Spec In Lab Tyron Kemp MD CHEMISTRY ORDERABLES Performing Organization Address City/[facility] Code Phon e Number [address] (ABNORMAL) Comprehensive metabolic panel (non-fasting) (06/14/2018 10:22 AM EST) athologist Signature Glucose Lvl 138 65 - 199 [facility] mg/dL [facility] Comment: Diabetes: >=200 mg/dL plus symp toms BUN 48 (H) 8 - 18 mg/dL [facility] Creatinine 2.06 (H) 0.70 - 1.20 mg/dL [facility] Sodium 140 135 - 145 mmol/L [facility] Potassium 3.9 3.5 - 5.0 mmol/L [facility] Comment: Please note: ??Patients with [...] 15 mmol/L [facility] Calcium 9.0 8.5 - 10.5 mg/dL [facility] Total Protein 6.7 6.1 - 8.0 gm/dL [facility] Albumin 3.9 3.2 - 5.2 gm/dL [facility] AST 19 0 - 30 unit/L [facility] ALT 11 0 - 30 unit/L [facility] Alk Phos 57 40 - 104 unit/L [facility] Total Bilirubin 0.4 0.2 - 1.3 mg/dL [facility] Estimated GFR 24 (L) >=60 mL/min/1.73 m?? [facility] Comment: The eGFR was calculated using the CKD-EP I equation. As with all creatinine based estimates of kidney function, eGFR values calculated with the CKD-EPI equation are not accurate in patients wi th acute kidney failure, extremes of body mass or the acutely ill. [email or web address] eGFR 28 (L) >=60 mL/min/1.73 m?? [facility] Comment: The eGFR was calculated using the CKD-EP I equation. As with all creatinine based estimates of kidney function, eGFR values calculated with the CKD-EPI equation are not accurate in patients wi th acute kidney failure, extremes of body mass or the acutely ill. [email or web address] Specimen Anatomical Collection Method Collection Time Receive d Time (Source) Location / / Volume Laterality Blood specimen 06/14/2018 10:22 9 (specimen) AM EST 10:31 AM EST Resulting Agency Comment Spec In Lab Tyron Kemp MD CHEMISTRY ORDERABLES Performing Organization Address City/State/ZIP Code Ph[place] [address] (ABNORMAL) Free Light Chains, Serum (06/14/2018 10:22 AM EST) Analysis Performed At Patho logist Time Signature [place] Free 6.93 (H) 0.81 - [facility] Light Chains 2.98 mg/dL [facility] Lambda Free 3.71 (H) 0.86 - [facility] Light Chains 1.99 mg/dL [facility] [place]/Lambda 1.8679 0.5000 - [facility] Free Light 2.4300 [facility] Comment: Please be advised that following a multi -institution study the reference interval for Serum Free Light Chains was updated May 08, 2017. Specimen Anatomical Collection Method Collection Time Receive d Time (Source) Location / / Volume Laterality Blood specimen 06/14/2018 10:22 9 (specimen) AM EST 10:31 AM EST Resulting Agency Comment Spec In Lab Tyron Kemp MD CHEMISTRY ORDERABLES Performing Organization Address City/State/ZIP Code Phon e Number [address] (ABNORMAL) PTH (06/14/2018 10:22 AM EST) P athologist Signature PTH 74 (H) 15 - 65 [facility] pg/mL [facility] Specimen Anatomical Collection Method Collection Time Receive d Time (Source) Location / / Volume Laterality Blood specimen 06/14/2018 10:22 9 (specimen) AM EST 10:31 AM EST Resulting Agency Comment Spec In Lab Tyron Kemp MD CHEMISTRY ORDERABLES Performing Organization Address City/State/ZIP Code Phon e Number [address] Protein Electrophoresis, serum (06/14/2018 10:22 AM EST) Patholo gist Method Time Signature Total Prot 6.5 6.1 - 8.0 [place] Elec gm/dL [facility] Albumin Elect 4.15 3.60 - 6.00 [place] gm/dL [facility] Alpha1-Globul 0.21 0.10 - 0.30 [place] in gm/dL [facility] Alpha2-Globul 0.81 0.40 - 0.90 [place] in gm/dL [facility] Beta Globulin 0.68 0.50 - 1.00 [facility] gm/dL [facility] Gamma 0.66 0.50 - 1.30 [place] Globulin gm/dL [facility] M1 Band None None [place] Detected Detected [facility] Specimen Anatomical Collection Method Collection Time Receive d Time (Source) Location / / Volume Laterality Blood specimen 06/14/2018 10:22 9 (specimen) AM EST 10:31 AM EST Resulting Agency Comment Spec In Lab Tyron Kemp MD CHEMISTRY ORDERABLES Performing Organization Address City/[facility]/ZIP Code Phon e Number [address] C4 Complement (06/14/2018 10:22 AM EST) P athologist Signature C4 Complement 22 10 - 40 [facility] mg[facility] Specimen Anatomical Collection Method Collection Time Receive d Time (Source) Location / / Volume Laterality Blood specimen 06/14/2018 10:22 9 (specimen) AM EST 10:31 AM EST Resulting Agency Comment Spec In Lab Tyron Kemp MD CHEMISTRY ORDERABLES Performing Organization Address City/[facility]/ZIP [place] [address] C3 Complement (06/14/2018 10:22 AM EST) P athologist Signature C3 Complement 106 90 - 180 [facility] mg/[facility] LABORATORY Specimen Anatomical Collection Method Collection Time Receive d Time (Source) Location / / Volume Laterality Blood specimen 06/14/2018 10:22 9 (specimen) AM EST 10:31 AM EST Resulting Agency Comment Spec In Lab Tyron Kemp MD CHEMISTRY ORDERABLES Performing Organization Address City/[facility]/ZIP [facility] [place] [address] documented in this encounter Visit Diagnoses Diagnosis Elevated serum creatinine Other nonspecific findings on examinatio n of blood Renal artery stenosis Atherosclerosis of renal artery Hypertensive renal disease, stage 1 thro ugh stage 4 or unspecified chronic kidney disease documented in this encounter Care Teams Pre School Teacher Relationship Specialty Start Date End Date Sanjuanita Lee MD PCP - General 03/05/13 12/23/21 [address] [place] [address] documented as of this encounter
--- OUTSIDE RECORDS SUMMARY | 2022-02-22 23:39 | XMS_ITS | Encounter Summary ---
:1950 Author Organization [facility] [address] Care Team Providers Name Role Phone Sanjuanita Lee MD Primary Care Provider Encounter Details Date Type Department Care Team Description 02/02/2014 Telephone Gastroenterology at [facility] Grace Coyne [facility] [place] [address] Social History Tobacco Use Types Packs/Day [...] this encounter Miscellaneous Notes Telephone Encounter - Grace Coyne RN - 02/02/2014 9:50 AM EDT Pt calls to report she vomited once last week, once yesterday and twice today. Able to eat and drink without problems. Denies fever. Denies anyone around her is ill. Feels a bit tired. Asked her if she is taking any new medications, yes - Started taking codeine sulfate 30mg tabs one tab Q4hrs prn for neck pain - takes Q 4 hours. New RX as of this past Thursday from her pcp. No acetominophen in RX. We rev'd this may be the cause of her vomiting and fatigue. She should stop taking, She should call her pcp to review as well. She verbalizes understanding. I will review with Marcela and pt aware I will only call her back if further advisement recommended. documented in this encounter Plan of Treatment Scheduled Procedures Name Priority Associated Diagnoses Date/Time EGD, UPPER GI ENDOSCOPY Gastroesophageal reflux disease, esophagitis presence not specifi ed documented as of this encounter Visit Diagnoses Not on filedocumented in this encounter Care Teams Supervisor Nurse Relationship Specialty Start Date End Date Sanjuanita Lee MD PCP - General 03/05/13 12/23/[address] [place] [address] documented as of this encounter
--- OUTSIDE RECORDS SUMMARY | 2022-02-22 23:39 | XMS_ITS | Encounter Summary ---
:1950 Author Organization [facility] [place] [address] Care Team Providers Name Role Phone Sanjuanita Lee MD Primary Care Provider Encounter Details Date Type Department Care Team Description 04/18/2014 Orders Only Gastroenterology at [facility] Nuha Rico, KYRA [facility] [place] [address] GASTROENTEROLOGY DEPT. [place], [place] [address] Social History Tobacco Use Types [...] Associated Comments Diagnosis FILM LIBRARY STORAGE Routine 04/18/2014 7:05 AM R esults for this ONLY ULTRASOUND EST procedure ar e in STUDY the results section. documented in this encounter Results Film Library- Storage only Ultrasound Study (04/18/2014 7:05 AM EST) Anatomical Region Laterality Modality Other Specimen (Source) Anatomical Collection Method Collection Time Re ceived Time Location / / Volume Laterality 04/18/2014 7:05 AM EST Narrative 04/19/2014 7:08 AM EST This is a Non-reportable exam Procedure Note ISIDORO, UNSIGNED REPORT - 04/19/2014Formatt ing of this note might be different from the original. This is a Non-reportable exam Nuha Rico APRN IMAmanda FILM LIBRARY ORDERABLES documented in this encounter Visit Diagnoses Not on filedocumented in this encounter Care Teams Furniture Cleaner Relationship Specialty Start Date End Date Sanjuanita Lee MD PCP - General 03/05/13 12/23/[address] [place] [address] documented as of this encounter
--- OUTSIDE RECORDS SUMMARY | 2022-02-22 23:39 | XMS_ITS | Encounter Summary ---
:1950 Author Organization [facility] [place] [address] Care Team Providers Name Role Phone Sanjuanita Lee MD Primary Care Provider Reason for Visit Reason Comments Follow-up Encounter Details Date Type Department Care Team Description 12/08/2014 [place]Up [place] [facility] [place]ul Watt, Viral hepatitis B chronic; [facility] Jennifer ivory MD Chronic viral hepatitis B without delta [place] [address] [facility] [phone] CENTER GASTROENTEROLOGY DEPT [place], [place] [address] Social History Tobacco Use Types [...] Sign Reading Time Taken Comments Blood Pressure 161/60 12/08/2014 9:21 AM EDT Pulse 60 12/08/2014 9:21 AM EDT Temperature - - Respiratory Rate - - Oxygen Saturation - - Inhaled Oxygen Concentration - - Weight 48.1 kg (106 lb) 12/08/2014 9:21 AM EDT Height 152.4 cm (5') 12/08/2014 9:21 AM EDT Body Mass Index 20.7 12/08/2014 9:21 AM EDT documented in this encounter Patient Instructions Patient InstructionsNakul Watt - 12/08/2014 10:15 AM EDT 1. Hepatis A vaccination today in clinic 2. Labs today 3. Continue Viread (tenofovir) 4. F/u in 6 months 5. In the interim, if there are question, please call our GI office documented in this encounter Progress Notes Radha Mabry MD - 12/14/2014 12:23 AM EDT I was the attending physician supervising Dr. Watt in the above care. For the purposes of billing, Dr. Watt provided the care. Radha Mabry MD Nakul Watt - 12/08/2014 10:26 AM EDT [facility] [place] of G[place]ology Outpatient Progress Note GI Problem List: Acute hepatitis B -Presented with jaundice, fatigue, nausea and vomiting -AST 1200 ALT 1300 Tbili 20 ALb 2.4 INR 1.8 -Lamivudine 100 mg initiated 03.04.2013 d/c 07/15/2013 -Tenofovir 300 mg started 07/15/2013 -03/03/2013 Abd ultrasound Mild gallbladder distension without evidence of cholelithiasis or gallbladder wall thickening -ASMA <20, KAYLEE neg, IgG 1260, IgM 516, IgA 320 Cirrhosis Health Maintenance: Hepatitis A vaccine: 04/07/14, 11/2014 Hepatitis B vaccine: infected Interval Events: Pt doing well denies ascites/pedal edema/f/c/n/v/BRBPR/melena/confusion. Medications: Current Outpatient Prescriptions on File Prior to Visit Medication Sig Dispense Refill ??? tenofovir (VIREAD) 300 mg Tablet Take 1 tablet by mouth daily. 90 tablet 2 ??? omeprazole (PRILOSEC) 20 mg Capsule, Delayed Release(E.C.) Take 30 mg by mouth daily. ??? UNABLE TO FIND daily. hylands ??? gabapentin (NEURONTIN) 400 mg Capsule Take 400 mg by mouth daily. ??? simvastatin (ZOCOR) 20 mg tablet ??? spironolactone (ALDACTONE) 50 mg tablet Take 25 mg by mouth every other day. ??? amlodipine (NORVASC) 10 mg tablet ??? magnesium oxide (MAG-OX) 400 mg tablet Take 1 tablet by mouth daily. 30 tablet 5 ??? aspirin 81 mg EC tablet Take 1 tablet by mouth daily. 30 tablet 3 ??? melatonin 3 mg Tab Take 5 mg by mouth nightly. ??? citalopram (CELEXA) 20 mg tablet No current facility-administered medications on file prior to visit. PHYSICAL EXAM: Vitals: Last value Range last 24 hrs Temperature Heart Rate Heart Rate: 60 Heart Rate: -- Blood Pressure BP: 161/60 mmHg BP: -- Respiratory Rate Resp: -- SpO2 SpO2: -- Wt Readings from Last 3 Encounters: 12/08/14 48.081 kg (106 lb) 04/07/14 49.986 kg (110 lb 3.2 oz) 01/20/14 49.896 kg (110 lb) Body mass index is 20.7 kg/(m^2). Exam: Gen: AAOX3, NAD, cooperative HEENT: EOMI, Anicteric sclera, MMM CV: RRR, S1, S2, no murmurs, rub, click or lance appreciated Resp: CTAB, no rales, wheezing, rhonchi, normal respiratory effort Abd: Soft, NT, ND, NABS, No HSM appreciated Back: No CVA tenderness noted EXT: No pedal edema Skin: No rashes, sores or ulcers Neuro: Grossly nonfocal, no asterixis Labs: Recent Labs 12/08/14 1055 WBC 7.4 HGB 17.0* HCT 47.1* PLATELET 196 NEUTROABS 4.44 Recent Labs 12/08/14 1055 NA 140 K 4.0 CL 101 CO2 26 BUN 22* CREATININE 1.07 Recent Labs 12/08/14 1055 CALCIUM 9.8 Recent Labs 12/08/14 1055 AST 25 ALT 21 ALKPHOS 126* BILITOT 0.6 BILIDIR 0.1 Hep BE Ag postive, Hep B S Ag negative, Viral load negative Imaging: Fibroscan: Median 5.5, IQR 1.3, 24% Abd US 10/2014: Impression Ultrasound - Abdomen Complete - Summary 1. Liver unremarkable, no specific sonographic findings of cirrhosis seen. No sonographically evident hepatic mass. 2. No splenomegaly or ascites to suggest portal hypertension. 3. Known cholethiasis. No evidence of acute cholecystitis or biliary ductal dilatation. 4. Limited evaluation of the pancreas, left kidney, and abdominal aorta as above. 5. No signficant change in simple sub-cm left interpolar renal cyst. ASSESSMENT/PLAN: 62 year old female with acute hepatitis B treated with lamivudine, transitioned to tenofovir, now here for GI clinic follow-up. 10/2014 abdominal US and Clinic fibroscan do not suggest cirrhosis at thistime. Repeat hepatitis B serologies today indicate cleared infection. Given potential for reactivation (usually more so in immunosuppressed patient) and ideally serial negative hepatitis B serologies required, will continue with tenofovir for now. Plan for RTC in 6 months with repeat labs including hepatitis B serologies. Pending these results will consider utility of tenofovir cessation. Recommendations: -Tenofovir -CBC/CMP/Coag/Hepatitis B serologies in 6 months -RTC in 6 months Electronically signed by: Nakul Watt Gastroenterology Fellow [facility] Pager [phone] 12/13/2014 documented in this encounter Plan of Treatment Scheduled Procedures Name Priority Associated Diagnoses Date/Time EGD, UPPER GI ENDOSCOPY Gastroesophageal reflux disease, esophagitis presence not specifi ed documented as of this encounter Procedures Procedure Name Priority Date/Time Associated Comments Diagnosis HBV QUANT Routine 12/08/2014 10:55 Chronic viral Results fo r this AM EDT hepatitis B without procedur e are in delta agent and the results without coma section. HEPATITIS B DNA, Routine 12/08/2014 10:55 Chronic viral QUANTITATIVE, PCR AM EDT hepatitis B without delta agent and without coma HEMOGRAM Routine 12/08/2014 10:55 Chronic viral Results fo r this AM EDT hepatitis B without procedur e are in delta agent and the results without coma section. DIFFERENTIAL, Routine 12/08/2014 10:55 Chronic viral Results f or this AUTOMATED AM EDT hepatitis B without procedur e are in delta agent and the results without coma section. HEPATITIS BE ANTIGEN Routine 12/08/2014 10:55 Chronic viral Re sults for this AND ANTIBODY AM EDT hepatitis B without procedur e are in delta agent and the results without coma section. HEPATITIS B CORE Routine 12/08/2014 10:55 Chronic viral Result s for this ANTIBODY, IGM AM EDT hepatitis B without procedu re are in delta agent and the results without coma section. HEPATITIS B CORE Routine 12/08/2014 10:55 Chronic viral Result s for this ANTIBODY, TOTAL AM EDT hepatitis B without proce dure are in delta agent and the results without coma section. HEPATITIS B SURFACE Routine 12/08/2014 10:55 Chronic viral Res ults for this ANTIGEN AM EDT hepatitis B without procedur e are in delta agent and the results without coma section. APTT Routine 12/08/2014 10:55 Chronic viral Results fo r this AM EDT hepatitis B without procedur e are in delta agent and the results without coma section. PROTHROMBIN TIME Routine 12/08/2014 10:55 Chronic viral Result s for this AM EDT hepatitis B without procedur e are in delta agent and the results without coma section. CBC (WITH DIFF) Routine 12/08/2014 10:55 Chronic viral AM EDT hepatitis B without delta agent and without coma COMPREHENSIVE Routine 12/08/2014 10:55 Chronic viral Results f or this METABOLIC PANEL AM EDT hepatitis B without proce dure are in (NON-FASTING) delta agent and the results without coma section. documented in this encounter Results HBV Quant (12/08/2014 10:55 AM EDT) Component Value Ref Test Analysis Performed At [facility] Range Method Time Signature Hepatitis B Result: <20 IU/mL(Target not detected) [facility] quantitative, Indication for Study: Hepatitis B Infection PCR Analysis: A quantitative real time reverse transcriptase PCR assay was performed on extracted viral RNA for the purpose of quantifi cation. Sample: plasma (0.5 mL minimum volume) Method: Zoey Chivo TaqMAN 48 HBV Linear Range: 20IU/mL - 170,000,000 IU/mL (95% CI) Interpretation: The result of this analysis is w ithin the limits of detection of the assay. Note: This assay is being pe rformed in the [facility] [place]ology [facility]. Reno Sage, Ph.D. Director, Molecular Pathology Specimen Anatomical Collection Method Collection Time Receive d Time (Source) Location / / Volume Laterality Blood specimen 12/08/2014 10:55 5 8:51 (specimen) AM EDT AM EDT Resulting Agency Comment Spec In Lab Radha Mabry MD CHEMISTRY ORDERABLES Performing Organization Address City/State/ZIP [place] [address] CERNER MILLENNIUM Differential, Automated (12/08/2014 10:55 AM EDT) P athologist Signature Neutrophils % 59.9 % CERNER MILLENNIUM Neutr Abs (ANC) 4.44 1.50 - CERNER 6.30 MILLENNIUM x10(3)/mcL Lymphocytes % 25.1 % CERNER MILLENNIUM Lymphocytes Abs 1.9 1.0 - 3.6 CERNER x10(3)/mcL MILLENNIUM Monocytes % 9.6 % CERNER MILLENNIUM Monocyte Abs 0.7 0.2 - 1.0 CERNER x10(3)/mcL MILLENNIUM Eosinophils % 4.2 % CERNER MILLENNIUM Eosinophils Abs 0.3 0.0 - 0.5 CERNER x10(3)/mcL MILLENNIUM Basophils % 0.9 % CERNER MILLENNIUM Basophils Abs 0.1 0.0 - 0.2 CERNER x10(3)/mcL MILLENNIUM Immature Gran % 0.30 % CERNER MILLENNIUM Comment: Immature granulocytes(IG's)percentage an d absolute count will include metamyelocytes, myelocytes, and promyelo cytes. Blood smears from CBCs yielding IG's will be scanned manually for concor dance. If this scan disagrees with the automated IG or if promyelocytes are not ed, a manual differential will be performed. Blanca Gran Abs 0.02 0.00 - 0.05 x10(3)/mcL CER NER MILLENNIUM Specimen Anatomical Collection Method Collection Time Receive d Time (Source) Location / / Volume Laterality Blood specimen 12/08/2014 10:55 5 (specimen) AM EDT 11:00 AM EDT Resulting Agency Comment Spec In Lab Radha Mabry MD HEMATOLOGY ORDERABLES Performing Organization Address City/State/[place] [address] CERNER MILLENNIUM (ABNORMAL) Hemogram (12/08/2014 10:55 AM EDT) P athologist Signature WBC 7.4 4.0 - 10.0 CERNER x10(3)/mcL MILLENNIUM RBC 5.24 (H) 3.93 - CERNER 5.22 MILLENNIUM x10(6)/mcL Hemoglobin 17.0 (H) 11.2 - CERNER 15.7 gm/dL MILLENNIUM Hematocrit 47.1 (H) 34.0 - CERNER 45.0 % MILLENNIUM MCV 89.9 79.0 - CERNER 94.0 fL MILLENNIUM MCH 32.4 (H) 26.6 - CERNER 32.2 pg MILLENNIUM MCHC 36.1 32.0 - CERNER 36.5 gm/dL MILLENNIUM Platelets 196 145 - 370 CERNER x10(3)/mcL MILLENNIUM RDWSD 42.6 35.0 - CERNER 46.0 fL MILLENNIUM RDWCV 13.0 10.9 - CERNER 14.4 % MILLENNIUM MPV 11.2 9.0 - 12.0 CERNER fL MILLENNIUM Specimen Anatomical Collection Method Collection Time Receive d Time (Source) Location / / Volume Laterality Blood specimen 12/08/2014 10:55 5 (specimen) AM EDT 11:00 AM EDT Resulting Agency Comment Spec In Lab Radha Mabry MD HEMATOLOGY ORDERABLES Performing Organization Address City/State/[place] [address] [facility] MILLENNIUM (ABNORMAL) Hepatitis BE Antigen and Antibody (12/08/2014 10:55 AM EDT) P athologist Signature Hep B E Ag Negative Negative [facility] Comment: Test Performed by: [facility] [address], [place] [address] [employer] Grade Teacher: Glory Hines. Hep B E Ab Positive (A) Negative DEION Pan Comment: Test Performed by: [place] [address] [employer] Grade Teacher: Glory Hines Specimen Anatomical Collection Method Collection Time Receive d Time (Source) Location / / Volume Laterality Blood specimen 12/08/2014 10:55 5 3:32 (specimen) AM EDT PM EDT Resulting Agency Comment Spec In Lab Radha Mabry MD IMMUNOLOGY ORDERABLES Performing Organization Address City/State/ZIP Code Phon e Number [address] [facility] Hepatitis B Surface Antigen (12/08/2014 10:55 AM EDT) Analysis Performed At Patho logist Time Signature HepB Surface Negative Negative [facility] Specimen Anatomical Collection Method Collection Time Receive d Time (Source) Location / / Volume Laterality Blood specimen 12/08/2014 10:55 5 (specimen) AM EDT 11:00 AM EDT Resulting Agency Comment Spec In Lab Radha Mabry MD CHEMISTRY ORDERABLES Performing Organization Address City/[facility]/ZIP Code Phon e Number [address] [facility] Hepatitis B Core Antibody, IgM (12/08/2014 10:55 AM EDT) Analysis Performed At Patho logist Time Signature Hep B Core IgM Negative Negative [facility] Comment: Test Performed by: [place] [address] Fourth Grade Teacher: Glory Hines Specimen Anatomical Collection Method Collection Time Receive d Time (Source) Location / / Volume Laterality Blood specimen 12/08/2014 10:55 5 3:32 (specimen) AM EDT PM EDT Resulting Agency Comment Spec In Lab Radha Mabry MD IMMUNOLOGY ORDERABLES Performing Organization Address City/[facility]/ZIP Code Phon e Number [address] [facility] (ABNORMAL) Hepatitis B Core Antibody, Total (12/08/2014 10:55 AM EDT) [facility] gist Method Time Signature Hep B Core Ab Positive (A) Negative [facility] Specimen Anatomical Collection Method Collection Time Receive d Time (Source) Location / / Volume Laterality Blood specimen 12/08/2014 10:55 5 (specimen) AM EDT 11:00 AM EDT Resulting Agency Comment Spec In Lab Radha Mabry MD CHEMISTRY ORDERABLES Performing Organization Address City/[facility]/ZIP Code Phon e Number [address] [facility] MILLENNIUM APTT (12/08/2014 10:55 AM EDT) athologist Signature PTT 33 25 - 35 sec [facility] Comment: Recommended therapeutic PTT range for fu ll dose unfractionated heparin is 80-114 seconds. Specimen Anatomical Collection Method Collection Time Receive d Time (Source) Location / / Volume Laterality Blood specimen 12/08/2014 10:55 5 (specimen) AM EDT 11:00 AM EDT Resulting Agency Comment Spec In Lab Radha Mabry MD HEMATOLOGY ORDERABLES Performing Organization Address City/[facility]/ZIP Code Phon e Number [address] [facility] Prothrombin Time (12/08/2014 10:55 AM EDT) P athologist Signature PT 14.6 12.0 - 15.0 [facility] sec MILLENNIUM Comment: Transfusion Committee Guidelines: INR less than 2.0, PTT less than OR equal to 43.5 seconds, or Fibrinogen greater t sheridan or equal to 100 mg/dl indicate adequate procoagulant activity for hemos tasis in patients without underlying bleeding disorders. INR 1.1 0.9 - 1.1 [facility] Specimen Anatomical Collection Method Collection Time Receive d Time (Source) Location / / Volume Laterality Blood specimen 12/08/2014 10:55 5 (specimen) AM EDT 11:00 AM EDT Resulting Agency Comment Spec In Lab Radha Mabry MD HEMATOLOGY ORDERABLES Performing Organization Address City/[facility]/ZIP [place] [address] CERNER MILLENNIUM (ABNORMAL) Comprehensive metabolic panel (non-fasting) (12/08/2014 10:55 AM EDT) athologist Signature Glucose Lvl 113 65 - 199 CERNER mg/dL MILLENNIUM Comment: Diabetes: >=200 mg/dL plus symp toms BUN 22 (H) 8 - 18 mg/dL CERNER MILLENNIUM Creatinine 1.07 0.70 - 1.20 mg/dL CERNER MILL ENNIUM Comment: Please note that the pediatric reference intervals supplied above were not validated at [facility]. Results from pediatri c patients should be interpreted in conjunction to the patient's age, height and muscle mass. Sodium 140 135 - 145 mmol/L CERNER BECKY NIUM Potassium 4.0 3.5 - 5.0 mmol/L CERNER BECKY NIUM Comment: Please note: ??Patients with WBC >100,00 0 may have falsely elevated Potassium levels. ??For accurate Potassium quantif ication in these patients send serum separator tube (gold top) for subsequent determinations. ??Contact the Clinical Chemistry Laboratory if there are any qu estions. Chloride 101 98 - 107 mmol/L CERNER MILLENN IUM CO2 26 22 - 31 mmol/L CERNER MILLENNI UM Anion Gap 13 5 - 15 mmol/L CERNER MILLENNIU M Calcium 9.8 8.5 - 10.5 mg/dL CERNER BECKY NIUM Total Protein 7.6 6.1 - 8.0 gm/dL CERNER MIL LENNIUM Albumin 4.6 3.2 - 5.2 gm/dL CERNER MILLENN IUM AST 25 0 - 30 unit/L CERNER MILLENNIU M ALT 21 0 - 30 unit/L CERNER MILLENNIU M Alk Phos 126 (H) 40 - 104 unit/L CERNER MILLENN IUM Total Bilirubin 0.6 0.2 - 1.3 mg/dL CERNER M ILLENNIUM Bili, Direct 0.1 0.0 - 0.3 mg/dL CERNER MILL ENNIUM Estimated GFR 51 (L) >=60 CERNER MILLENNIU M Comment: This estimated GFR (eGFR) value was calc ulated using the MDRD equation which has been validated on patients between t he ages of 18 and 70. The MDRD should not be used to assess kidney function in patients < 18 years of age or in patients with extremes of body mass, or in patients with acute kidney failure. This value should be multiplied by 1.2 f or patients. For further information please copy and past e the following links into your internet browser. http://AskYou/DHnkdep http://AskYou/DHMCnkf Specimen Anatomical Collection Method Collection Time Receive d Time (Source) Location / / Volume Laterality Blood specimen 12/08/2014 10:55 5 (specimen) AM EDT 11:00 AM EDT Resulting Agency Comment Spec In Lab Radha Mabry MD CHEMISTRY ORDERABLES Performing Organization Address City/State/ZIP Code Phon e Number [address] [facility] documented in this encounter Visit Diagnoses Diagnosis Viral hepatitis B chronic Viral hepatitis B without mention of hep atic coma, chronic, without mention of hepatitis delta Chronic viral hepatitis B without delta agent and without coma documented in this encounter Care Teams Policy Manager Relationship Specialty Start Date End Date Sanjuanita Lee MD PCP - General 03/05/13 12/23/[address] [place] [address] documented as of this encounter
--- OUTSIDE RECORDS SUMMARY | 2022-02-22 23:39 | XMS_ITS | Encounter Summary ---
:1950 Author Organization [facility] [address] Care Team Providers Name Role Phone Maico Lee MD Primary Care Provider Encounter Details Date Type Department Care Team Description 03/22/2013 Hospital Encounter Radiology at [facility] Ketan Seth MD [facility] [place] [address] [place] [address] Social History Tobacco Use Types Packs/Day [...] Sign Reading Time Taken Comments Blood Pressure 154/67 03/22/2013 3:00 PM EST Pulse 72 03/22/2013 3:00 PM EST Temperature 36.4 ??C (97.6 ??F) 03/22/2013 3:00 PM EST Respiratory Rate 18 03/22/2013 3:00 PM EST Oxygen Saturation 97% 03/22/2013 3:00 PM EST Inhaled Oxygen Concentration - - Weight - - Height - - Body Mass Index - - documented in this encounter Discharge Instructions Discharge InstructionsTamy Lam RN - 03/22/2013 3:52 PM EST [facility] Vascular and Interventional Radiology Discharge Instructions For Your Puncture Site Activity and Diet: Go Home and rest quietly for the remainder of the day. You may resume your normal activities tomorrow. Resume your usual diet after the procedure. Bandage: There is a sterile dressing over the puncture site consisting of small gauze with a clear dressing (Tegaderm). This dressing should be left in place for 24 hours. If the clear dressing becomesloose you should place tape over the edges to secure it in place. Bathing: Do not take a shower until 24 hours after your procedure; after this time you may shower with the dressing in place, then remove it and pat your skin dry. You may use a bandaid to cover the site if there is any drainage. When to call your healthcare provider: If you notice bleeding or a bulge from the puncture site, you should apply firm pressure over the site for 10-15 minutes, keeping the site covered and call your doctor. If you are still bleeding [id number] minutes, reapply pressure, and have someone drive you to the nearest Emergency Department, or call 911. If you develop pain, redness, drainage or swelling at or around the puncture site. If you develop fever equal to or greater than 101F and/or shaking chills. When to call the Interventional Radiology Department: Please call with any questions or concerns. Ifit is during regular office hours, please call [phone]. If it is after regular office hours, oron weekends or holidays, please call [phone] and ask to speak to the Test Rider on callfor Interventional Radiology. You have received medication during your procedure to help lesson anxiety and keep you comfortable.These medications affect judgement and reaction time. We recommend that you do not drive, operate equipment, sign any important documents, or smoke unattended for 24 hours following your procedure. Because of the sedation, be careful on stairs, as you may be unsteady on your feet. You may resume your regular diet as tolerated. IV site -- slight redness, or tenderness is normal, you can use a warm compress. If tenderness and redness increases or foul drainage occurs, please contact your M. D. 05/09/11 documented in this encounter Medications at Time of Discharge Medication Sig Dispensed Refills Start Date End Date furosemide (LASIX) 40 mg Take 20 mg by 0 07/15/2013 tablet mouth 2 times daily. spironolactone (ALDACTONE) Take 50 mg by 0 07/15/2013 100 mg tablet mouth daily. lactulose (CHRONULAC) 20 Take 30 mLs by 900 mL 5 013 07/15/2013 gram/30 mL solution mouth daily. amlodipine (NORVASC) 10 mg Take 10 mg by 0 201209/14/2018 tablet mouth daily. citalopram (CELEXA) 20 mg 0 02/17/2013 02/24/2018 tablet omeprazole (PRILOSEC OTC) Take 1 tablet by 30 tablet 11 02/2503/07/2014 20 mg tablet mouth daily. lamiVUDine (EPIVIR) 100 mg Take 1 tablet by 60 tablet 5 02/201311/11/2013 tablet mouth daily. magnesium oxide (MAG-OX) Take 1 tablet by 30 tablet 5 03/0702/24/2018 400 mg tablet mouth daily. aspirin 81 mg EC tablet Take 1 tablet by 30 tablet 3 201206/14/2018 mouth daily. ondansetron (ZOFRAN) 4 mg Take 1 tablet by 30 tablet 1 02/2504/08/2013 tablet mouth every 8 hours as needed for Nausea. melatonin 3 mg Tab Take 10 mg by 0 mouth nightly. documented as of this encounter Progress Notes Amy Tamayo PA - 03/21/2013 3:01 PM EST PRE-PROCEDURE VIR NOTE Date of : 1950 Age: 62 y.o. PCP: MAICO LEE MD Referring Physician (if different): Jerome Indication: Abdominal distension / ascites Planned Procedure: Paracentesis (dx / tx) Chief Complaint/Diagnosis: 62 yo female with acute hepatitis B and ascites causing abdominal discomfort. Plts 96 INR 1.8 Pertinent Past Medical/Surgical History: Patient Active Problem List Diagnosis Code ??? Acute hepatitis 570 ??? Viral hepatitis B acute 070.30 No Known Allergies Current Outpatient Prescriptions on File Prior to Encounter Medication Sig Dispense Refill ??? furosemide (LASIX) 40 mg tablet Take 40 mg by mouth 2 times daily. ??? spironolactone (ALDACTONE) 100 mg tablet Take 100 mg by mouth daily. ??? lactulose (CHRONULAC) 20 gram/30 mL solution Take 30 mLs by mouth daily. 900 mL 5 ??? amlodipine (NORVASC) 10 mg tablet ??? citalopram (CELEXA) 20 mg tablet ??? lamiVUDine (EPIVIR) 100 mg tablet Take 1 tablet by mouth daily. 60 tablet 5 ??? magnesium oxide (MAG-OX) 400 mg tablet Take 1 tablet by mouth daily. 30 tablet 5 ??? aspirin 81 mg EC tablet Take 1 tablet by mouth daily. 30 tablet 3 ??? omeprazole (PRILOSEC OTC) 20 mg tablet Take 1 tablet by mouth daily. 30 tablet 11 ??? ondansetron (ZOFRAN) 4 mg tablet Take 1 tablet by mouth every 8 hours as needed for Nausea. 30 tablet 1 ??? melatonin 3 mg Tab Take by mouth nightly. Pertinent ROS: as per HPI Pertinent Family History: non contributory Social History: n/a Labs: Lab Results Component Value Date WBC 8.3 03/19/2013 HCT 37.8 03/19/2013 PLATELET 96* 03/19/2013 INR 1.8* 03/07/2013 BUN 20* 03/19/2013 Lab Results Component Value Date ALKPHOS 148* 03/19/2013 AST 235* 03/19/2013 ALBUMIN 2.6* 03/19/2013 BILIDIR >10.0 03/19/2013 BILITOT 15.6* 03/19/2013 ALT 207* 03/19/2013 Assessment / Plan: Paracentesis Medications to discontinue: none Prophylactic antibiotic: none Planned access site / position: supine Mignon Rasmussen RN - 03/21/2013 2:36 PM EST [facility] NURSING DATABASE Name: PRETTY HARMON Date of : 1950 AGE 62 y.o. Address: [address] [address] (home) [phone] (work) Mobile: No relevant phone numbers on file. Referring Provider: Nuha Rico Reason for Visit: Tx and Dx paracentesis new onset ascites, acute hepatitis B: diagnositc and therapuetic paracentesis with albumin infusio No Known Allergies Pertinent PMH: Patient Active Problem List Diagnosis Code ??? Acute hepatitis 570 ??? Viral hepatitis B acute 070.30 Past Medical History Diagnosis Date ??? Hypertension ??? Constipation ??? Dyslipidemia ??? Peripheral vascular disease ??? Insomnia ??? Renal artery stenosis R; per 2009 angiogram ??? AAA (abdominal aortic aneurysm) [id number] angiogram; 3.2 cm infrarenal Pertinent PSH: Past Surgical History Procedure Date ??? Hysterectomy Social Hx: Former smoker EtOH: a few glasses of wine, rarely 4x/year Date/Procedure Comments: 03/22/13 para 2L out Fentanyl 125 mcg IV, Albumin 25%X4, sheri well Laboratory Results: Lab Results Component Value Date INR 1.8* 03/07/2013 Lab Results Component Value Date PT 21.7* 03/07/2013 PTT 46* 03/04/2013 Lab Results Component Value Date BUN 20* 03/19/2013 Lab Results Component Value Date CREATININE 1.08 03/19/2013 Lab Results Component Value Date K 3.7 03/19/2013 Lab Results Component Value Date PLATELET 96* 03/19/2013 Medications: Prior to Admission medications Medication Sig Start Date End Date Taking? Authorizing Provider furosemide (LASIX) 40 mg tablet Take 40 mg by mouth 2 times daily. ProviderMick MD spironolactone (ALDACTONE) 100 mg tablet Take 100 mg by mouth daily. ProviderMick MD lactulose (CHRONULAC) 20 gram/30 mL solution Take 30 mLs by mouth daily. 03/11/13 Nuha Rico APRN amlodipine (NORVASC) 10 mg tablet 02/28/13 ProviderMick MD citalopram (CELEXA) 20 mg tablet 02/17/13 Mick Lundy MD lamiVUDine (EPIVIR) 100 mg tablet Take 1 tablet by mouth daily. 03/07/13 Dwayne Douglass MD magnesium oxide (MAG-OX) 400 mg tablet Take 1 tablet by mouth daily. 03/07/13 Dwayne Douglass MD aspirin 81 mg EC tablet Take 1 tablet by mouth daily. 03/07/13 Dwayne Douglass MD omeprazole (PRILOSEC OTC) 20 mg tablet Take 1 tablet by mouth daily. 03/07/13 03/07/14 Mainor Douglass MD ondansetron (ZOFRAN) 4 mg tablet Take 1 tablet by mouth every 8 hours as needed for Nausea. 03/07/13Dwayne Douglass MD melatonin 3 mg Tab Take by mouth nightly. Provider, MD Mick For outpatient procedures: This patient has been informed that they require a pole truck driver to drive them home after this procedure. In the absence of a pole truck driver, IR will not be able to perform this procedure and will need to reschedule. Pt verbalized understanding of these instructions during the pre-procedure education via phone. documented in this encounter Procedure Notes ProviderJah - 03/29/2013 12:34 PM ESTAssociated Order(s): SCAN DOC: LAB Amy Howe MD - 03/22/2013 3:52 PM ESTProcedure(s): US GUIDED PARACENTESIS VIR PROCEDURE NOTE Procedure: US-guided paracentesis ACC#: [id number] Indication: 62 yo female with acute hepatitis B and ascites causing abdominal discomfort. Plts 96 INR 1.8 Technique: After discussing risks (including infection and hemorrhage, damage to surrounding structures), and benefits, patient consented to the procedure. A moment of truth was performed and the patient and procedure correctly identified. Split doses of fentanyl were administered by the IR nurse during continuous monitoring of pulse, blood pressure and oxygen saturation for alleviation of discomfort. Fentanyl 125 mcg IV Albumin 50 grams IV Pocket of abdominal fluid was localized with US. After maximal sterile barrier technique preparationof overlying skin, 1% lidocaine SQ was administered for anesthesia. Under US guidance a base plate needle was inserted into the peritoneal space, an 0.035 wire was advanced through the needle into the p eritoneal space and the needle was removed. A 6Fr [place] cath was advanced over the wire into the peritoneal space. A total of 2000cc serous fluid was withdrawn. Fluid sent to lab as requested. Impression: US guided paracentesis with 2 L withdrawn. No apparent complications. Procedure performed by: Amy Tamayo PA-C Attending: Dr. Suresh Austin, Dr. Prince, was present for critical portions of this procedure and image interpretation and remained immediately available for the remainder of the procedure. documented in this encounter Miscellaneous Notes Miscellaneous - Provider, Scanning - 03/29/2013 12:31 PM EST Miscellaneous - Provider, Scanning - 03/29/2013 12:21 PM EST documented in this encounter Plan of Treatment Scheduled Procedures Name Priority Associated Diagnoses Date/Time EGD, UPPER GI ENDOSCOPY Gastroesophageal reflux disease, esophagitis presence not specifi ed documented as of this encounter Procedures Procedure Name Priority Date/Time Associated Diagnosis Comme nts LAB SCAN 03/29/2013 12:34 PM Results for this EST procedure are i n the results section. IR ABDOMINAL Routine 03/22/2013 3:26 PM [facility] Results f or this DRAINAGE PROCEDURE EST procedure are in the results section. ANAEROBIC CULTURE Routine 03/22/2013 3:00 PM [facility] Resu lts for this EST procedure are i n the results section. BODY FLUID CULTURE, Routine 03/22/2013 3:00 PM [facility] AEROBIC & ANAEROBIC EST BODY FLUID CULTURE, Routine 03/22/2013 3:00 PM [facility] Re sults for this AEROBIC EST procedure are i n the results section. CELL COUNT BODY Routine 03/22/2013 3:00 PM [facility] Result s for this FLUID EST procedure are i n the results section. PROTEIN LEVEL BODY Routine 03/22/2013 3:00 PM [facility] Res ults for this FLUID EST procedure are i n the results section. ALBUMIN LEVEL BODY Routine 03/22/2013 3:00 PM [facility] Res ults for this FLUID EST procedure are i n the results section. documented in this encounter Results SCAN DOC: LAB (03/29/2013 12:34 PM EST) Narrative 03/29/2013 12:34 PM EST Procedure Note Provider, Scanning - 03/29/2013 12:34 PM EST Scanning Provider MEDIA MGR SCAN EXT ORDR/RSLT IR abdominal drainage procedure (03/22/2013 3:26 PM EST) Anatomical Region Laterality Modality Abdomen X-Ray Angiography Specimen (Source) Anatomical Collection Method Collection Time Re ceived Time Location / / Volume Laterality 03/22/2013 3:26 PM EST Impressions 03/23/2013 8:15 AM EST Impression: US guided paracentesis with 2 L withdrawn. No apparent complications. ?? Procedure performed by: Amy Tamayo PA-C ?? Attending: Dr. Suresh Austin, Dr. Prince, was present for critical portions of this procedure and image interpretation and remained immediately available for the remainder of the procedure. Narrative 03/23/2013 8:15 AM EST VIR PROCEDURE NOTE ?? Procedure: US-guided paracentesis ?? ACC#: [id number] ?? Indication: 62 yo female with acute hepa titis B and ascites causing abdominal discomfort. Plts 96 INR 1.8 ?? Technique: After discussing risks (inclu ding infection and hemorrhage, damage to surrounding structures), and benefits , patient consented to the procedure. A moment of truth was performed and the pa tient and procedure correctly identified. ?? Split doses of fentanyl were administere d by the IR nurse during continuous monitoring of pulse, blood pressure and oxygen saturation for alleviation of discomfort. ?? Fentanyl 125 mcg IV ?? Albumin 50 grams IV ?? Pocket of abdominal fluid was localized with US. After maximal sterile barrier technique preparation of overlying skin, 1% lidocaine SQ was administered for anesthesia. Under US guidance a base lluvia te needle was inserted into the peritoneal space, an 0.035 wire was adva nced through the needle into the peritoneal space and the needle was sadi alex. A 6Fr [place] cath was advanced over the wire into the peritoneal space. A total of 2000cc serous fluid was withdrawn. Fluid sent to lab as requeste d. ?? Procedure Note Amy Prince MD - 03/23/2013 VIR PROCEDURE NOTE Procedure: US-guided paracentesis ACC#: [id number] Indication: 62 yo female with acute hepa titis B and ascites causing abdominal discomfort. Plts 96 INR 1.8 Technique: After discussing risks (inclu ding infection and hemorrhage, damage to surrounding structures), and benefits , patient consented to the procedure. A moment of truth was performed and the pa tient and procedure correctly identified. Split doses of fentanyl were administere d by the IR nurse during continuous monitoring of pulse, blood pressure and oxygen saturation for alleviation of discomfort. Fentanyl 125 mcg IV Albumin 50 grams IV Pocket of abdominal fluid was localized with US. After maximal sterile barrier technique preparation of overlying skin, 1% lidocaine SQ was administered for anesthesia. Under US guidance a base lluvia te needle was inserted into the peritoneal space, an 0.035 wire was adva nced through the needle into the peritoneal space and the needle was sadi alex. A 6Fr [place] cath was advanced over the wire into the peritoneal space. A total of 2000cc serous fluid was withdrawn. Fluid sent to lab as requeste d. IMPRESSION Impression: US guided paracentesis with 2 L withdrawn. No apparent complications. Procedure performed by: Amy Tamayo PA-C Attending: Dr. Suresh Austin, Dr. Prince, was present for critical portions of this procedure and image interpretation and remained immediately available for the remainder of the procedure. Ketan Seth MD [facility] ORDERABLES Anaerobic Culture (03/22/2013 3:00 PM EST) [facility] Method Time Signature Anaerobic CERNER Culture ? Patient Name: HARMON, S MITRA G ? Ordered By: KETAN SETH [facility] ? MR#: [id number] ?LOC: ??3ZV ? /Sex: ??1950 (62 years), ? Female ? PROCEDURE: Anaerobic Culture ?SOURCE: [facility] ? COLLECTED: 03/22/2013 15:00 ? STARTED: 03/22/2013 15:50 ? FINAL REPORT ? Final Report ? Verified:03/26/2013 11:37 ? No anaerobic organisms isolated ? PRELIMINARY REPORT ? Preliminary Report ? Verified:03/23/2013 13:48 ? No anaerobic organisms isolated to date ? Specimen (Source) Anatomical Collection Method Collection Time Re ceived Time Location / / Volume Laterality Peritoneal fluid 03/22/2013 3:00 03/22/20 13 3:49 specimen PM EST PM EST (specimen) Resulting Agency Comment Spec In Lab Ketan Seth MD MICROBIOLOGY - GENERAL ORDER AYAD Performing Organization Address City/State/[place] [address] AMINAHNER MILLENNIUM Body fluid culture (03/22/2013 3:00 PM EST) Component Value Ref Test Analysis Performed At [facility] Range Method Time Signature Body Fluid CERNER Culture ? Patient Name: HARMON, S MITRA G ? Ordered By: KETAN SETH ? MR#: [id number] ?LOC: ??3ZV ? /Sex: ??1950 (62 years), ? Female ? PROCEDURE: Body Fluid Culture ?SOURCE: [facility] ? COLLECTED: 03/22/2013 15:00 ? STARTED: 03/22/2013 15:50 ? STAINS / PREPARATIONS ? Gram Stain Report ? Verified:03/22/2013 16:22 ? Cytocentrifuge Gram Stain performed ? No WBC's seen. ? No microorganisms seen. ? FINAL REPORT ? Final Report ? Verified:03/26/2013 09:33 ? No growth ? PRELIMINARY REPORT ? Preliminary Report ? Verified:03/23/2013 08:04 ? No growth to date. ? Specimen (Source) Anatomical Collection Method Collection Time Re ceived Time Location / / Volume Laterality Peritoneal fluid 03/22/2013 3:00 03/22/20 13 3:49 specimen PM EST PM EST (specimen) Resulting Agency Comment Spec In Lab Ketan Seth MD MICROBIOLOGY - GENERAL ORDER AYAD Performing Organization Address City/State/[place] [address] CERNER MILLENNIUM Protein Level Body Fluid (03/22/2013 3:00 PM EST) P athologist Signature Protein, BF 0.5 gm/dL CERNER MILLENNIUM Comment: Reference range: ??Transudates ??< 3.0 g m/dL ?Exudates ? > 3.0 gm/dL No reference range is available for the specimen type submitted. ??The performance of this assay for the submit ti type has not been validated and results should be interpreted accordingl y and with regard to the patient's clinical status. Protein BF Type Ascites fluid CERNER MIL LENNIUM Specimen (Source) Anatomical Collection Method Collection Time Re ceived Time Location / / Volume Laterality Peritoneal fluid 03/22/2013 3:00 03/22/20 13 3:34 specimen PM EST PM EST (specimen) Resulting Agency Comment Spec In Lab Ketan Seth MD BODY FLUIDS AND STOOLS ORDER AYAD Performing Organization Address [facility] Phon e Number [address] CERNER MILLENNIUM Albumin Level Body Fluid (03/22/2013 3:00 PM EST) P athologist Signature Albumin, BF <1.0 gm/dL CERNER MILLENNIUM Comment: In the evaluation of ascites, a serum (o r plasma) ? ascites albumin gradient equal to or greater than 1.1 g/dL is usu ally associated with portal hypertension. ??A gradient less than 1.1 g/dL is usually seen in patients who do not have portal hypertension. No reference range is available for the specimen type submitted. ??The performance of this assay for the submit ti type has not been validated and results should be interpreted accordingl y and with regard to the patient's clinical status. Albumin BF Type Ascites fluid CERNER MIL LENNIUM Specimen (Source) Anatomical Collection Method Collection Time Re ceived Time Location / / Volume Laterality Peritoneal fluid 03/22/2013 3:00 03/22/20 13 3:34 specimen PM EST PM EST (specimen) Resulting Agency Comment Spec In Lab Ketan Seth MD BODY FLUIDS AND STOOLS ORDER AYAD Performing Organization Address [facility] Phon e Number [address] CERNER MILLENNIUM Cell Count Body Fluid (03/22/2013 3:00 PM EST) Patholo gist Method Time Signature Spec Type BF Ascites CERNER MILLENNIUM Color BF Yellow CERNER MILLENNIUM Appearance BF Slightly CERNER Cloudy MILLENNIUM Nucl Cell BF 174 /mcl CERNER Ct MILLENNIUM Comment: If Nucleated Cell Count equals zero, No Scan or Differential is performed. If Nucleated Cell Count equals 1-5, Smea r is scanned but no results are reported unless abnormalities are seen. If Nucleated Cell Count equals [address], Differential is reported. Nucleated Cell Count results are correla ti with body fluid type and clinical condition. Neutrophil BF 4 % CERNER MILLENNIU M Lymphocyte BF 18 % CERNER MILLENNIU M Macrophage BF 75 % CERNER MILLENNIU M Comment: rare RBC and WBC phagocytosis Signet rings present Mesothelial BF 3 % CERNER MILLENNI UM Tot Diff Ct BF 200 Cells CERNER MILLENNI UM Specimen (Source) Anatomical Collection Method Collection Time Re ceived Time Location / / Volume Laterality Peritoneal fluid 03/22/2013 3:00 03/22/20 13 3:34 specimen PM EST PM EST (specimen) Resulting Agency Comment Spec In Lab Ketan Seth MD BODY FLUIDS AND STOOLS ORDER AYAD Performing Organization Address City/State/[place] [address] CERNER MILLENNIUM documented in this encounter Visit Diagnoses Diagnosis Ascites Other ascites documented in this encounter Administered Medications Inactive Administered Medications - up to 3 most recent administrations Medication Order MAR Action Action Date Dose Rate Site albumin human 25 % 50 mL bottle 50 g Given 03/22/2013 3:00 PM EST 50 g 50 g, Intravenous, ONCE, 1 dose, On Thu03/22/13 at 1500, Intra-Operative (Intra-Procedure), Routine fentaNYL 50mcg/mL injection Given 03/22/2013 3:27 PM EST 125 mcg 25-50 mcg, Intravenous, EVERY 5 MIN PRN, Starting on Thu03/22/13 at 1438, Until Thu03/22/13 at 1528, Pain, per unit protocol, Angio/IR (Intra-Procedure), Routine documented in this encounter Care Teams Christian Education Director Relationship Specialty Start Date End Date Maico Lee MD PCP - General 03/05/13 12/23/[address] [place] [address] documented as of this encounter
--- OUTSIDE RECORDS SUMMARY | 2022-02-22 23:39 | XMS_ITS | Encounter Summary ---
:1950 Author Organization [facility] [place] [address] Care Team Providers Name Role Phone Sanjuanita Lee MD Primary Care Provider Reason for Visit Reason Comments Follow-up Encounter Details Date Type Department Care Team Description 08/27/2017 Office Visit Gastroenterology at [facility] Joceline Monroe, Viral hepatitis B chronic; [facility] Jennifer ivory [place] [address] [facility] [phone] [facility] [address] Social History Tobacco Use Types Packs/Day Years [...] Sign Reading Time Taken Comments Blood Pressure 155/68 08/27/2017 8:17 AM EDT Pulse 74 08/27/2017 8:17 AM EDT Temperature - - Respiratory Rate - - Oxygen Saturation - - Inhaled Oxygen Concentration - - Weight 49 kg (108 lb) 08/27/2017 8:17 AM EDT Height 152.4 cm (5') 08/27/2017 8:17 AM EDT Body Mass Index 21.09 08/27/2017 8:17 AM EDT documented in this encounter Progress Notes Joceline Monroe MD - 08/27/2017 8:[address] [facility] Department of Gastroenterology Outpatient Clinic Note ID: 65-year old female with chronic hepatitis B treated with lamivudine, transitioned to tenofovir, withseroconversion now off antivirals presents to GI clinic for follow-up. GI Problem List: Resolved Hepatitis B -Presented with jaundice, fatigue, nausea and vomiting -AST 1200 ALT 1300 Tbili 20 ALb 2.4 INR 1.8 ?? -Lamivudine 100 mg initiated 11.8.2012 d/c 07/15/2013 -Tenofovir 300 mg started 07/15/2013 -ASMA <20, KAYLEE neg, IgG 1260, IgM 516, IgA 320 -Abd US 10/2014 normal liver, cholelithiasis -Hep B S Ab negative 2012, Hep B Core IgG positive-Hep BE Ab positive-Hep B S Ag negative 11/2014 -Hep B S Ab positive 04/2015 -Fibroscan 01/2016 F2 - 7.3/28%/100% ?? Interval Events: - feeling well - continues to have small, frequent stools, which turn loose if she takes a laxative- has the sensation of incomplete evacuation and of being constipated Medications: Current Outpatient Prescriptions on File Prior to Visit Medication Sig Dispense Refill ??? Potassium Gluconate 595 mg (99 mg) Tablet Take by mouth. ??? calcium carbonate (TUMS) 200 mg calcium (500 mg) Tablet, Chewable Take 1 tablet by mouth daily. 1000 mg ??? CALCIUM CARBONATE (CALCIUM 600 ORAL) Take by mouth. ??? Cholecalciferol, Vitamin D3, (VITAMIN D-3) 2,000 unit Capsule Take 1,000 Units by mouth. ??? gabapentin (NEURONTIN) 400 mg Capsule Take 800 mg by mouth nightly. ??? simvastatin (ZOCOR) 20 mg tablet ??? amlodipine (NORVASC) 10 mg tablet ??? aspirin 81 mg EC tablet Take 1 tablet by mouth daily. 30 tablet 3 ??? melatonin 3 mg Tab Take 10 mg by mouth nightly. ??? tenofovir (VIREAD) 300 mg Tablet Take 1 tablet by mouth daily. (Patient not taking: Reported on 08/27/2017) 90 tablet 2 ??? omeprazole (PRILOSEC) 20 mg Capsule, Delayed Release(E.C.) Take 20 mg by mouth daily. ??? UNABLE TO FIND daily. hylands ??? spironolactone (ALDACTONE) 50 mg tablet Take 25 mg by mouth every other day. ??? citalopram (CELEXA) 20 mg tablet ??? magnesium oxide (MAG-OX) 400 mg tablet Take 1 tablet by mouth daily. (Patient not taking: Reported on 08/27/2017) 30 tablet 5 No current facility-administered medications on file prior to visit. PHYSICAL EXAM: Vitals: Last value Range last 24 hrs Temperature Temp: -- Heart Rate Heart Rate: 74 Heart Rate: [74] Blood Pressure BP: 155/68 BP: (155)/(68) Respiratory Rate Resp: -- SpO2 SpO2: -- Wt Readings from Last 3 Encounters: 08/27/17 49 kg (108 lb) 08/14/16 50.8 kg (112 lb 1.6 oz) 02/07/16 52.6 kg (116 lb) Body mass index is 21.09 kg/(m^2). Exam: Gen: AAOX3, NAD, cooperative HEENT: EOMI, Anicteric sclera, MMM CV: RRR, no murmurs Resp: CTAB Abd: Soft, NT, ND, NABS, No HSM appreciated Back: No CVA tenderness noted EXT: No pedal edema Skin: No rashes, sores or ulcers Neuro: Grossly nonfocal Labs: No results for input(s): WBC, HGB, HCT, PLATELET, NEUTROABS in the last 168 hours. No results for input(s): NA, K, CL, CO2, BUN, CREATININE in the last 168 hours. No results for input(s): CALCIUM, MAGNESIUM, PHOS in the last 168 hours. No results for input(s): AST, ALT, ALKPHOS, BILITOT, BILIDIR in the last 168 hours. No results for input(s): INR, PT, PTT in the last 72 hours. Hep B S Ag: Negative Hep B S Ab: Negative Hep B Core Total: Positive Imaging: Fibroscan 08/27/17: E kPa median: 4.2 IQR / me 24% 100 cap score 20 measurements ASSESSMENT/PLAN: 65-year-old woman with chronic hepatitis B treated with lamivudine, transitioned to tenofovir, with seroconversion now off antivirals presents to GI clinic for follow-up. Although she has seroconverted, she did have a HepB surface Ab quant of 6.3 in 2017, which is a little unusual, and so we recommendrepeat Hepatitis serologies today. On repeat fibroscan in the office today, she has F1 fibrosis, which is reassuring. No indication forHCC or variceal screening at this point (assuming she remains cleared of hep B) For her bowel symptoms, recommend bulking agent psyllium fiber. Her symptoms started after hysterectomy and so may be a component of pelvic floor dysfunction: will consider ano-rectal manometry / pelvic floor PT if no improvement. Finally, she is overdue for screening colonoscopy: prefers to schedule this closer to home through her PCP. Recommendations: - trial psyllium fiber as bulking agent - schedule screening colonoscopy: she prefers to do this up in [facility], and will schedule through her PCP For history of hep B: - repeat Hep B serologies today, given HepB surface Ab quant of 6.3 in 2017 - If lab values are consistent with cleared Hep B, no indication for HCC screening or variceal screening going forward - Outpatient follow up pending Hep B serologies: if consistent with seroconversion, no indication for GI follow up unless symptoms of constipation/diarrhea persist Joceline oMnroe MD Gastroenterology Fellow [facility] Pager [phone] 08/27/2017 Snow Liao MD - 08/27/2017 8:00 AM EDT ATTENDING ATTESTATION: I have discussed the patient with the GI fellow, Dr. Monroe and I agree with her findings, assessment, and plan as written. Snow Liao MD Gastroenterology attending Pager [phone] documented in this encounter Plan of Treatment Scheduled Procedures Name Priority Associated Diagnoses Date/Time EGD, UPPER GI ENDOSCOPY Gastroesophageal reflux disease, esophagitis presence not specifi ed documented as of this encounter Visit Diagnoses Diagnosis Viral hepatitis B chronic Viral hepatitis B without mention of hep atic coma, chronic, without mention of hepatitis delta Change in bowel habits Other symptoms involving digestive syste m documented in this encounter Care Teams Cocoa Room Operator Relationship Specialty Start Date End Date Sanjuanita Lee MD PCP - General 03/05/13 12/23/[address] [place] [address] documented as of this encounter
--- OUTSIDE RECORDS SUMMARY | 2022-02-22 23:39 | XMS_ITS | Encounter Summary ---
:1950 Author Organization [facility] [place] [address] Care Team Providers Name Role Phone Sanjuanita Lee MD Primary Care Provider Reason for Visit Reason Onset Date Comments Medication Refill 07/19/2014 Encounter Details Date Type Department Care Team Description 07/19/2014 Refill Gastroenterology at [facility] Brittney Xiong, [place] [address] Social History Tobacco Use Types Packs/Day [...] on filedocumented in this encounter Care Teams Pharmaceutical Sales Relationship Specialty Start Date End Date Sanjuanita Lee MD PCP - General 03/05/13 12/23/21 [address] [place] [address] documented as of this encounter
--- OUTSIDE RECORDS SUMMARY | 2022-02-22 23:39 | XMS_ITS | Encounter Summary ---
:1950 Author Organization [facility] [place] [address] Care Team Providers Name Role Phone Sanjuanita Lee MD Primary Care Provider Encounter Details Date Type Department Care Team Description 03/21/2013 Orders Only Gastroenterology at [facility] Nuha Rico, KYRA [facility] [place] [address] GASTROENTEROLOGY DEPT. [place], [place] [address] Social History Tobacco Use Types [...] as of this encounter Plan of Treatment Pending Results Name Type Priority Associated Diagnoses Date/Ti va Film Library- Storage Imaging Routine 2012 12:15 PM EST only Ultrasound Study Scheduled Procedures Name Priority Associated Diagnoses Date/Time EGD, UPPER GI ENDOSCOPY Gastroesophageal reflux disease, esophagitis presence not specifi ed documented as of this encounter Visit Diagnoses Not on filedocumented in this encounter Care Teams In Home Nanny Relationship Specialty Start Date End Date Sanjuanita Lee MD PCP - General 03/05/13 12/23/[address] [place] [address] documented as of this encounter
--- OUTSIDE RECORDS SUMMARY | 2022-02-22 23:39 | XMS_ITS | Encounter Summary ---
:1950 Author Organization [facility] [place] [address] Care Team Providers Name Role Phone Sanjuanita Lee MD Primary Care Provider Encounter Details Date Type Department Care Team Description 10/11/2014 Orders Only Gastroenterology at [facility] Nakul Watt, Chronic viral [facility] Jennifer [place] [address] [facility] delta agent and [phone] jamil coma [place] [address] Social History Tobacco Use Types Packs/Day Years [...] documented as of this encounter Results (ABNORMAL) Hepatitis BE Antigen and Antibody (12/08/2014 10:55 AM EDT) P athologist Signature Hep B E Ag Negative Negative CERNER ZARIENNIUM Comment: Test Performed by: [place] [address] Appliance Worker: Glory Hines Hep B E Ab Positive (A) Negative DEION Pan Comment: Test Performed by: [facility] [place] [address] Appliance Worker: Glory Hines Specimen Anatomical Collection Method Collection Time Receive d Time (Source) Location / / Volume Laterality Blood specimen 12/08/2014 10:55 5 3:32 (specimen) AM EDT PM EDT Resulting Agency Comment Spec In Lab Radha Mabry MD IMMUNOLOGY ORDERABLES Performing Organization Address City/[facility]/ZIP Code Phon e Number [address] [facility] Hepatitis B Surface Antigen (12/08/2014 10:55 AM EDT) Analysis Performed At Patho logist Time Signature HepB Surface Negative Negative CERMARIANA OLGA LIDIA Specimen Anatomical Collection Method Collection Time Receive d Time (Source) Location / / Volume Laterality Blood specimen 12/08/2014 10:55 5 (specimen) AM EDT 11:00 AM EDT Resulting Agency Comment Spec In Lab Radha Mabry MD CHEMISTRY ORDERABLES Performing Organization Address City/[facility]/ZIP Code Phon e Number [address] [facility] Hepatitis B Core Antibody, IgM (12/08/2014 10:55 AM EDT) Analysis Performed At Patho logist Time Signature Hep B Core IgM Negative Negative CERMARIANA DUGGAN Comment: Test Performed by: [place] [address] Appliance Worker: Glory Hines Specimen Anatomical Collection Method Collection Time Receive d Time (Source) Location / / Volume Laterality Blood specimen 12/08/2014 10:55 5 3:32 (specimen) AM EDT PM EDT Resulting Agency Comment Spec In Lab Radha Mabry MD IMMUNOLOGY ORDERABLES Performing Organization Address City/[facility]/ZIP Code Phon e Number [address] CERNER MILLENNIUM (ABNORMAL) Hepatitis B Core Antibody, Total (12/08/2014 10:55 AM EDT) Patholo gist Method Time Signature Hep B Core Ab Positive (A) Negative CERNER MILLENNIUM Specimen Anatomical Collection Method Collection Time Receive d Time (Source) Location / / Volume Laterality Blood specimen 12/08/2014 10:55 5 (specimen) AM EDT 11:00 AM EDT Resulting Agency Comment Spec In Lab Radha Mabry MD CHEMISTRY ORDERABLES Performing Organization Address City/[facility]/ZIP Code Phon e Number [address] [facility] M[facility] APTT (12/08/2014 10:55 AM EDT) P athologist Signature PTT 33 25 - 35 sec CERNER MILLENNIUM Comment: Recommended therapeutic PTT range for fu ll dose unfractionated heparin is 80-114 seconds. Specimen Anatomical Collection Method Collection Time Receive d Time (Source) Location / / Volume Laterality Blood specimen 12/08/2014 10:55 5 (specimen) AM EDT 11:00 AM EDT Resulting Agency Comment Spec In Lab Radha Mabry MD HEMATOLOGY ORDERABLES Performing Organization Address City/[facility]/ZIP Code Phon e Number [address] CERNER MILLENNIUM Prothrombin Time (12/08/2014 10:55 AM EDT) P athologist Signature PT 14.6 12.0 - 15.0 CERNER sec MILLENNIUM Comment: Transfusion Committee Guidelines: INR less than 2.0, PTT less than OR equal to 43.5 seconds, or Fibrinogen greater t [place] or equal to 100 mg/dl indicate adequate procoagulant activity for hemos tasis in patients without underlying bleeding disorders. INR 1.1 0.9 - 1.1 CERNER MILLENNIUM Specimen Anatomical Collection Method Collection Time Receive d Time (Source) Location / / Volume Laterality Blood specimen 12/08/2014 10:55 5 (specimen) AM EDT 11:00 AM EDT Resulting Agency Comment Spec In Lab Radha Mabry MD HEMATOLOGY ORDERABLES Performing Organization Address City/State/ZIP Code [place] [address] CERNER MILLENNIUM (ABNORMAL) Comprehensive [...] intervals supplied above were not validated at [facility]. Results from pediatri c patients should be [...] Bili, Direct 0.1 0.0 - 0.3 mg/dL DEION HAMEED ENNIUM Estimated GFR 51 (L) >=60 DEION Pan Comment: This estimated GFR (eGFR) value was [...] the following links into your internet browser. [email or web address] [email or web address] Specimen Anatomical Collection Method Collection Time Receive d Time (Source) Location / / Volume Laterality Blood specimen 12/08/2014 10:55 5 (specimen) AM EDT 11:00 AM EDT Resulting Agency Comment Spec In Lab Radha Mabry MD CHEMISTRY ORDERABLES Performing Organization Address City/State/[place] [address] DEION DUGGAN documented in this encounter Visit Diagnoses Diagnosis Chronic viral hepatitis B without delta agent and without coma documented in this encounter Care Teams Judicial Registrar Relationship Specialty Start Date End Date Sanjuanita Lee MD PCP - General 03/05/13 12/23/[address] [place] [address] documented as of this encounter
--- OUTSIDE RECORDS SUMMARY | 2022-02-22 23:39 | XMS_ITS | Encounter Summary ---
:1950 Author Organization [facility] [place] [address] Care Team Providers Name Role Phone Sanjuanita Lee MD Primary Care Provider Reason for Visit Reason Comments Follow-up Encounter Details Date Type Department Care Team Description 04/08/2013 [place]Up [place]ology [place] [facility] Nuha Rico, Viral hepatitis B [facility] Jennifer ivory APRN acute (Primary Dx) [place] [address] [facility] [phone] CENTER GASTROENTEROLOGY DEPT. [place], [place] [address] Social History Tobacco Use Types [...] Sign Reading Time Taken Comments Blood Pressure 128/53 04/08/2013 9:56 AM EST Pulse 107 04/08/2013 9:56 AM EST Temperature - - Respiratory Rate - - Oxygen Saturation - - Inhaled Oxygen Concentration - - Weight 51.7 kg (114 lb) 04/08/2013 9:56 AM EST Height 152.4 cm (5') 04/08/2013 9:56 AM EST Body Mass Index 22.26 04/08/2013 9:56 AM EST documented in this encounter Patient Instructions Patient InstructionsNuha Rico APRN - 04/08/2013 10:05 AM EST Reduce lasix to 20 mg a day Reduce aldactone to 50 mg a day If you have not gained weight by 04/14 then stop the lasix and aldactone If you gain 5 pounds in one week please call the office Labs on 04/13 Labs on 04/28 or For leg cramps try taking calcium supplement like tums is ok, also can try seltzer water, Hylands leg cramp formula over the counter documented in this encounter Progress Notes Nuha Rico APRN - 04/08/2013 10:07 AM EST Subjective: Patient ID: Charlene Harmon is a 62 y.o. female. GI PROBLEM LIST: 1. Acute hepatitis B, presented with jaundice, fatigue, nausea and vomiting AST 1200 ALT 1300 Tbili 20 ALb 2.4 INR 1.8 HBV DNA pending HBEag HBEab Lamivudine 100 mg initiated 03.04.2013 OUTSIDE STUDIES: 02/26/2013 02/28/2013 03/03/2013 03/05/2013 03/07/2013 03/10/2013 03/30/2013 ast 1066 1092 1285 835 775 666 62 alt 1328 1363 1307 827 745 679 48 tbili 13.13 16.3 19.9 16.7 16.3 15.5 7.6 inr 1.8 1.8 1.8 2 1.8 1.7 1.3 tprot 5.3 alb 2.4 ap 190 plt 112 Hep BcIGM pos Hep Bsag pos Hep cab neg HBV DNA 1,1247,748 2440 03/03/2013 abd ultrasound Mild gallbladder distension without evidence of cholelithiasis or gallbladder wall thickening 02/26/[address] Moderate intrahepatic biliary dilatation and probable extra hepatic biliary dilatation as well. Gallbladder is distended. The gallbladder wall appears mildly thickened. Finding inconclusive for cholelithiasis 03.03.2013 ASMA <20, KAYLEE neg, IgG 1260, IgM 516, IgA 320 Ms. Harmon returns today for follow up and is generally doing aquilino. She no longer has any detectableascites nor peripheral edema. Her weight is down below her baseline level. She is eating and drinking fluids. Her lab numbers continue to improve. Review of Systems Constitutional: Negative for fever and fatigue. Respiratory: Negative for cough and shortness of breath. Cardiovascular: Negative for leg swelling. Gastrointestinal: Positive for constipation (intermittent). Negative for nausea, vomiting and abdominal pain. Musculoskeletal: Positive for back pain. Neurological: Positive for tremors. Psychiatric/Behavioral: Negative for sleep disturbance. Objective: Physical Exam Constitutional: She is oriented to person, place, and time. She appears well- developed and well-nourished. HENT: Head: Normocephalic and atraumatic. Eyes: Pupils are equal, round, and reactive to light. Scleral icterus is present. Pulmonary/Chest: She has no wheezes. Abdominal: Soft. There is no hepatosplenomegaly. There is no tenderness. Neurological: She is alert and oriented to person, place, and time. Psychiatric: She has a normal mood and affect. Her behavior is normal. Assessment and Plan: Ms. Harmon is a 62 year old female with acute hepatitis B, she started 100 mg of lamivudine 03/04/2013.She developed abdominal ascites and lower extremity edema a few weeks into treatment, she had one paracentsis and then continued on her diuretics. She returns today much improved, with no discernable fluid. Will reduce her lasix to 20 mg a day and aldcatone to 50 mg a day. If she has not gained 5 pounds over the next week will stop the diuretics. She is having a virologic response to the treatment with a Reduction in her viral load and significant improvement in her ast, alt, bilirubin and INR. She was counseled to stay out of work, will reassess this situation in the new year. documented in this encounter Plan of Treatment Scheduled Procedures Name Priority Associated Diagnoses Date/Time EGD, UPPER GI ENDOSCOPY Gastroesophageal reflux disease, esophagitis presence not specifi ed documented as of this encounter Visit Diagnoses Diagnosis Viral hepatitis B acute - Primary Viral hepatitis B without mention of hep atic coma, acute or unspecified, without mention of hepatitis delta documented in this encounter Care Teams Eyeglass Frames Inspector Relationship Specialty Start Date End Date Sanjuanita Lee MD PCP - General 03/05/13 12/23/[address] [place] [address] documented as of this encounter
--- OUTSIDE RECORDS SUMMARY | 2022-02-22 23:39 | XMS_ITS | Encounter Summary ---
:1950 Author Organization [facility] [place] [address] Care Team Providers Name Role Phone Sanjuanita Lee MD Primary Care Provider Reason for Visit Auth/Cert Specialty Diagnoses / Procedures Referred By Contact Refer red To Contact Diagnoses 3 yr surv from 01/20/14 Procedures EGD, UPPER GI ENDOSCOPY Referral ID Status Reason Start Date Expiration Date Visits Requ ested Visits Authorized [id number] 1 1 Encounter Details Date Type Department Care Team Description 07/28/2017 Hospital Encounter Gastroenterology at [facility] [place] [address] [facility] [phone] CENTER GASTROENTEROLOGY [place], [place] [address] Social History Tobacco Use Types [...] Sign Reading Time Taken Comments Blood Pressure 139/64 07/28/2017 12:45 PM EDT Pulse 69 07/28/2017 10:50 AM EDT Temperature - - Respiratory Rate 13 07/28/2017 10:50 AM EDT Oxygen Saturation 94% 07/28/2017 12:45 PM EDT Inhaled Oxygen Concentration - - Weight - - Height - - Body Mass Index - - documented in this encounter Discharge Instructions Discharge InstructionsAustin Ruano RN - 07/28/2017 11:04 AM EDT Please call [phone] before 8pm Mon-Fri with problems, questions or concerns. If you call after 8pm or on weekends, call the Hospital at [phone] and ask to speak to the Floor Installer insulation sprayer and the harvester operator will contact that person for you. AttachmentsThe following attachments cannot be sent through Care Everywhere.EGD (UPPER ENDOSCOPY): POST-OP ([place]RA[place])documented in this encounter Medications at Time of Discharge Medication Sig Dispensed Refills Start Date End Date Potassium Gluconate 595 mg Take by mouth. 0 06/14/2018 (99 mg) Tablet calcium carbonate (TUMS) Take 1 tablet by 0 06/14/2018 200 mg calcium (500 mg) mouth daily. 1000 Tablet, mg ChewableIndications: Hepatitis B infection without delta agent without hepatic coma, unspecified chronicity CALCIUM CARBONATE (CALCIUM Take by mouth. 0 02/24/2018 600 ORAL)Indications: Hepatitis B infection without delta agent without hepatic coma, unspecified chronicity tenofovir (VIREAD) 300 mg Take 1 tablet by 90 tablet 2 01/2502/24/2018 Tablet mouth daily. cholecalciferol, Vitamin Take 1,000 Units by 0 10/02/2018 D3, (VITAMIN D) 1,000 unit mouth. Tablet omeprazole (PRILOSEC) 20 Take 20 mg by mouth 0 02/24/2018 mg Capsule, Delayed daily. Release(E.C.) UNABLE TO FIND daily. hylands 0 2017 gabapentin (NEURONTIN) 800 Take 800 mg by 0 09/14/2018 mg Tablet mouth nightly. simvastatin (ZOCOR) 20 mg 0 07/08/2013 02/24/2018 tablet spironolactone (ALDACTONE) Take 25 mg by mouth 0 02/24/2018 50 mg tablet every other day. amlodipine (NORVASC) 10 mg Take 10 mg by mouth 0 02/28/2013 09/14/2018 tablet daily. citalopram (CELEXA) 20 mg 0 02/17/2013 02/24/2018 tablet magnesium oxide (MAG-OX) Take 1 tablet by 30 tablet 5 03/0702/24/2018 400 mg tablet mouth daily. aspirin 81 mg EC tablet Take 1 tablet by 30 tablet 3 201206/14/2018 mouth daily. melatonin 3 mg Tab Take 10 mg by mouth 0 06/14/2018 nightly. documented as of this encounter Progress Notes Austin Ruano RN - 07/28/2017 12:51 PM EDT Observed pt, monitored VS for 2 hours post narcan. VSS.per eDH flowsheet. documented in this encounter H&P Notes Snow Liao MD - 07/28/2017 10:17 AM EDT Gastroenterology and Hepatology Pre-Procedure History and Physical Exam Procedure: EGD: Indication: Screening, portal HTN, cirrhosis PROBLEM LIST Patient Active Problem List Diagnosis Code ??? Acute hepatitis B17.9 ??? Viral hepatitis B acute B16.9 HISTORY OF PRESENT ILLNESS Charlene Harmon is a 66 y.o.with cirrhosis who presents for EGD to screen for varices. Last EGD 2013 wasnormal. She is due to see our hepatologists in the office soon. MEDICATIONS No current facility-administered medications on file prior to encounter. Current Outpatient Prescriptions on File Prior to Encounter Medication Sig Dispense Refill ??? simvastatin (ZOCOR) 20 mg tablet ??? [...] Tab Take 10 mg by mouth nightly. PHYSICAL EXAM: GEN: Alert, cooperative, pleasant and in NAD HEENT: Airway examined, oropharyngeal clear without lesions Mallampati Score: II (soft palate, uvula, fauces visible) Neck: Supple, no lymphadenopathy or masses LUNGS: Clear to auscultation HEART: Regular rate and rhythm, normal S1, S2 ABDOMEN: Normal bowel sounds, soft, non tender, non distended EXT: No clubbing, cyanosis or edenoma NEURO: No focal deficits RECENT LABS No results found for this or any previous visit (from the past 24 hour(s)). ASSESSMENT AND PLAN Charlene Harmon is a 66 y.o. y/o who presents for endoscopy. Risks and benefits of the procedure explained to the patient. We discussed in depth possible risks include reaction to anesthesia, bleeding, infection, perforation, bruising of other organs in the body, missed lesions including cancer, and/or other unforseen complication. All of the patients questions were answered. Patient wishes to proceed and consent was signed. Proceed with the planned endoscopic procedure. ASA 3 - Patient with moderate systemic disease with functional limitations Sedation Plan: moderate (conscious sedation) Snow Liao MD Gastroenterology attending Pager [phone] documented in this encounter Procedure Notes Nancy Pompa RN - 07/28/2017 10:52 AM EDT Pt became unresponsive to tactile and verbal stimuli after procedure was done - pt was ambued with sats up to 97% - without eyes opening - Narcan .2mg x 2 given per order - pt opened her eyes and denies complaints - o2 at 3l nc documented in this encounter Plan of Treatment Scheduled Procedures Name Priority Associated Diagnoses Date/Time EGD, UPPER GI ENDOSCOPY Gastroesophageal reflux disease, esophagitis presence not specifi ed documented as of this encounter Procedures Procedure Name Priority Date/Time Associated Diagnosis Comme nts EGD, UPPER GI 07/28/2017 10:24 AM 3 yr surv from ENDOSCOPY EDT 01/20/14 UPPER GI ENDOSCOPY Routine 07/28/2017 10:17 AM Re sults for this EDT procedure are i n the results section. documented in this encounter Results UPPER GI ENDOSCOPY (07/28/2017 10:17 AM EDT) Component Value Ref Test Analysis Performed At [facility] Method Time Signature UPPER GI [facility] ENDOSCOPY Endoscopy Procedure Date: 07/28/2017 10:17 AM ? Patient Name: Charlene Harmon ? N: [id number] ? Date of : 1950 ? Age: 66 ? Order #: [id number] ? Instrument Name: [id number] ? Procedure: ? Upper GI endoscopy Indications: ? Cirrhosis rule out esophageal ? varices, Portal hypertension rule out ? esophageal varices Providers: ? Snow Liao MD, Nancy ? Aletha, RN, Brent Mittal Referring MD: ?Sanjuanita Lee MD Medicines: ? Midazolam 3 mg IV, Fentanyl 125 ? micrograms IV, Naloxone 0.4 m g IV Complications: ? Transient hypoventilation at after ? completion of the procedure, improved ? with Naloxone 0.2 mg IV x 2 Procedure: ? The procedure, indications, benefi ts, ? risks and alternatives were e xplained ? to the patient. Specifically ? discussed were potential ? complications including, but not ? limited to, bleeding, perfora tion, ? infection, missing a cancer, and ? adverse medication reactions. The ? Endoscope was introduced thro ugh the ? mouth, and advanced to the se cond ? part of duodenum. The patient ? tolerated the procedure well. The ? upper GI endoscopy was accomp lished ? without difficulty. The patie nt ? tolerated the procedure. ? Findings: ? The examined esophagus was normal. ? The Z-line was regular and was found 37 cm from the ? incisors. ? The entire examined stomach was normal. ? The examined duodenum was normal. ? Moderate Sedation: ? I was present during the intraservice time as ? documented by the sedation RN. Impression: ?- Normal esophagus. ? - Z-line regular, 37 cm from the ? incisors. ? - Normal stomach. ? - Normal examined duodenum. ? - No specimens collected. Recommendation: ?- Follow-up with [facility] [place] as ? previously planned. ? - Monitor breathing in recove ry area. ? - Discharge home ambulatory. ? Attending Participation: ? I personally performed the entire procedure. ? Snow Liao MD 07/28/2017 10:54:08 AM Number of Addenda: 0 Note Initiated On: 07/28/2017 10:17 AM Specimen (Source) Anatomical Collection Method Collection Time Re ceived Time Location / / Volume Laterality 07/28/2017 10:17 AM EDT Sanjuanita Lee MD GENERAL SURGICAL ORDERABLES Performing Organization Address City/State/ZIP Code Phon e Number [place] documented in this encounter Visit Diagnoses Not on filedocumented in this encounter Administered Medications Inactive Administered Medications - up to 3 most recent administrations Medication Order MAR Action Action Date Dose Rate Site lactated Ringers Rate/Dose Change 07/28/2017 12:53 PM 900 mL/hr 900 mL/hr infusion EDT 100 mL/hr, Intravenous, CONTINUOUS, Starting on Tue 18 at 1000, Until Tue 18 at 1456, Endoscopy (Day of Procedure) New Bag 07/28/2017 10:00 AM EDT 100 mL/hr 100 mL/hr naloxone (NARCAN) 2 mg in New Bag 07/28/2017 10:45 AM EDT 0.4 mg/h r 100.4 mL/hr sodium chloride 0.9% 502 mL infusion 0.4 mg/hr (100.4 mL/hr), Intravenous, CONTINUOUS, Starting on 07/28/17 at 1115, Until Tue 18 at 1456, Endoscopy (Day of Procedure), Routine documented in this encounter Active and Recently Administered Medications Times are shown in EDT. Continuous Medication Order 07/26/2017 07/27/2017 07/28/2017 lactated Ringers infusion 1000 ( New Bag - Provider: Brittney Celis RN)1253 (Rate/Dose Change - Provider: Austin Ruano RN) 100 mL/hr, at 100 mL/hr, Intravenous, CO NTINUOUS, Starting 07/28/17 at 1000, Until Tue 418 at 1456, Endo (Day of Procedure) naloxone (NARCAN) 2 mg in sodium chloride 0.9% 502 mL infusion 1045 (New Bag - Provider: Nancy Pompa RN - Comment: .2 mg given at 1045 and .2 given at 1047) 0.4 mg/hr (100.4 mL/hr), at 100.4 mL/hr, Intravenous, CONTINUOUS, Starting 07/28/17 at 1115, Until Tue 18 at 1456, Endo (Day of Procedure) PRN Medication Order 07/26/2017 07/27/2017 07/28/2017 fentaNYL 50 mcg/mL multi-dose injection (CANCELED) 1029 (Given - Provider: Nancy Pompa RN)1032 (Given - Provider: Nancy Pompa RN)1035 (Given - Provider: Nancy Pompa, LAWRENCE) ONCE PRN, Starting 07/28/17 at 1029, U ntil Tue 18 at 1456, Intra-Operative (Intra-Procedure), Routine midazolam (PF) (VERSED) 1 mg/mL multi-dose injection (CANCELED) 1029 (Given - Provider: Nancy Pompa, LAWRENCE)1032 (Given - Provider: Nancy Pompa, LAWRENCE)1035 (Given - Provider: Nancy Pompa, LAWRENCE) ONCE PRN, Starting 07/28/17 at 1029, U ntil 07/28/17 at 1456, Intra-Operative (Intra-Procedure), Routine documented in this encounter Care Teams Polysomnographer Relationship Specialty Start Date End Date Sanjuanita Lee MD PCP - General 03/05/13 12/23/21 [address] [place] [address] documented as of this encounter
--- OUTSIDE RECORDS SUMMARY | 2022-02-22 23:39 | XMS_ITS | Encounter Summary ---
:1950 Author Organization [facility] [place] [address] Care Team Providers Name Role Phone Sanjuanita Lee MD Primary Care Provider Encounter Details Date Type Department Care Team Description 11/24/2014 Hospital En[place] [facility] [place]ul Watt MD [facility] [place] [address] Cirrhosis of liver [facility] Ketan Seth MD [facility] [place] [address] [place] [address] Social History Tobacco Use Types Packs/Day Years [...] by mouth. 0 06/14/2018 (99 mg) Tablet tenofovir (VIREAD) 300 mg Take 1 tablet by 90 tablet 2 06/2602/05/2015 Tablet mouth daily. omeprazole (PRILOSEC) 20 Take 20 mg by [...] Name Priority Date/Time Associated Diagnosis Comme nts US ABDOMEN COMPLETE Routine 11/24/2014 10:07 AM Cirrhosis of l iver Results for this EDT procedure are i n the results section. documented in this encounter Results US abdomen complete (11/24/2014 10:07 AM EDT) Anatomical Region Laterality Modality Abdomen, Vascular Ultrasound Specimen (Source) Anatomical Collection Method Collection Time Re ceived Time Location / / Volume Laterality 11/24/2014 10:07 AM EDT Narrative 11/24/2014 12:42 PM EDT Abdominal ?(Signed Final 11/24/2014 12:41 ? pm) Patient Info ID #: ? [id number] ?: ??[birth year] (64 yrs) Name: ? CHARLENE HARMON ?Visit Date: 11/24/2014 10:01 am Performed By Performed By: ?Alanna Moore RDMS Attending: ? Jayda RODRIGES, Candy Sneed Referred By: ? KETAN SETH MD Service(s) Provided ??BD - Abdominal Complete Survey - 0 [id number] ? [id number] Indications ??cirrhosis Comparison Abdominal ultrasound 04/18/2014 from ?? [facility]. ----- Liver ----- Right Lobe Length: ?? 13.9 ?? cm Echogenicity/Echotexture: ?? Normal Comment: ?No focal lesion seen. ??N o capsular nodularity ? identified. Gallbladder Cholelithiasis: ?Gallstones Wall Thickness: ?Normal wall thi ckness Focal Tenderness: ?Negative sonogra phic Chan's sign Comment: ?No pericholecystic fluid. Biliary Tract Intrahepatic Ducts: ?? Normal Extrahepatic Ducts: ?? Normal Common Duct Size: ? 2.0 ? mm -------- Pancreas -------- Head: ? Limited visu alization Tail: ? Limited visu alization due to overlying ? bowel Body: ? Normal ------ Spleen ------ Size (cm) ?L: ??9.1 Comment: ?Normal size and appearanc e. Right Kidney Size (cm) ?L: ??9.2 Cortical Thickness: ?Normal Cortical Echogenicity: ?? Normal Hydronephrosis: ?No sonogr aphic evidence Left Kidney Size (cm) ?L: ??9.5 Cortical Thickness: ?Normal Cortical Echogenicity: ?? Normal Hydronephrosis: ?No sonogr aphic evidence Comment: ?Limited visualization of the upper pole due to ? overlying bowel gas. ??Simple cyst in the interpolar ? region, measurin. 9 x 0.6 x 0.6 cm. ----- Aorta ----- Measurements (cm): Proximal ? AP: ?? 2.2 Mid ?AP: ?? 2.4 Distal ? AP: ?? 2.2 Comment: ?Diffuse calcified and non calcified plaque as as ? seen on prior ultraso und. ??Known reported 3.2 cm ? infrarenal abdominal aortic aneurysm on prior ? 11/02/09 [facility] [place] aorta is not adequately ? evaluated on this exa m. --- IVC --- Normal in caliber where visualized. Fluid Collections No ascites seen. Impression Ultrasound - Abdomen Complete - Summary 1. ??Liver unremarkable, no specific so nographic findings of cirrhosis seen. ??No sonogr aphically evident hepatic mass. 2. ??No splenomegaly or ascites to sugg est portal hypertension. 3. ??Known cholethiasis. ??No evidence of acute cholecystitis or biliary ductal dilatat ion. 4. ??Limited evaluation of the pancreas , left kidney, and abdominal aorta as above. 5. ??No signficant change in simple sub -cm left interpolar renal cyst. I ??viewed the images and agree with alejandra nicholson above interpretation. ? Viviane Stokes Electronically Signed Final Report ?? 12:41 pm Procedure Note Candy Montelongo MD - 11/24/2014Formatt ing of this note might be different from the original. Abdominal (Signed Final 11/24/2014 12:4 1 pm) Patient Info ID #: [id number] : [birth year] (64 y rs) Name: CHARLENE HARMON Visit Date: 5 10:01 am Performed By Performed By: Alanna Moore RDMS Attending: Candy Montelongo MD Referred By: KETAN SETH MD Service(s) Provided [facility] - Abdominal Complete Survey - [phone] [id number] Indications cirrhosis Comparison Abdominal ultrasound 04/18/2014 from [facility]. ----- Liver ----- Right Lobe Length: 13.9 cm Echogenicity/Echotexture: Normal Comment: No focal lesion seen. No capsu lar nodularity identified. Gallbladder Cholelithiasis: Gallstones Wall Thickness: Normal wall thickness Focal Tenderness: Negative sonographic Chan's sign Comment: No pericholecystic fluid. Biliary Tract Intrahepatic Ducts: Normal Extrahepatic Ducts: Normal Common Duct Size: 2.0 mm -------- Pancreas -------- Head: Limited visualization Tail: Limited visualization due to over lying bowel Body: Normal ------ Spleen ------ Size (cm) L: 9.1 Comment: Normal size and appearance. Right Kidney Size (cm) L: 9.2 Cortical Thickness: Normal Cortical Echogenicity: Normal Hydronephrosis: No sonographic evidence Left Kidney Size (cm) L: 9.5 Cortical Thickness: Normal Cortical Echogenicity: Normal Hydronephrosis: No sonographic evidence Comment: Limited visualization of the u pper pole due to overlying bowel gas. Simple cyst in the interpolar region, measurin.9 x 0.6 x 0.6 cm. ----- Aorta ----- Measurements (cm): Proximal AP: 2.2 Mid AP: 2.4 Distal AP: 2.2 Comment: Diffuse calcified and noncalci fied plaque as as seen on prior ultrasound. Known reporte d 3.2 cm infrarenal abdominal aortic aneurysm on prior 11/02/09 [facility] [place] aorta is not adequately evaluated on this exam. --- IVC --- Normal in caliber where visualized. Fluid Collections No ascites seen. Impression Ultrasound - Abdomen Complete - Summary 1. Liver unremarkable, no specific sono graphic findings of cirrhosis seen. No sonograp hically evident hepatic mass. 2. No splenomegaly or ascites to sugges t portal hypertension. 3. Known cholethiasis. No evidence of a cute cholecystitis or biliary ductal dilatat ion. 4. Limited evaluation of the pancreas, left kidney, and abdominal aorta as above. 5. No signficant change in simple sub-c m left interpolar renal cyst. I viewed the images and agree with the above interpretation. Candy Montelongo MD Electronically Signed Final Report 11/24 12:41 pm Ketan Seth MD IMG US GEN ORDERABLES documented in this encounter Visit Diagnoses Diagnosis Cirrhosis of liver Cirrhosis of liver without mention of al cohol documented in this encounter Care Teams Slip Mixer Relationship Specialty Start Date End Date Sanjuanita Lee MD PCP - General 03/05/13 12/23/[address] [place] [address] documented as of this encounter
--- OUTSIDE RECORDS SUMMARY | 2022-02-22 23:39 | XMS_ITS | Encounter Summary ---
:1950 Author Organization [facility] [place] [address] Care Team Providers Name Role Phone Sanjuanita Lee MD Primary Care Provider Encounter Details Date Type Department Care Team Description 03/21/2013 Orders Only Gastroenterology [place] [facility] [place] Nuha Rico, Ascites (Primary Dx) [facility] [place] [address] [facility] [phone] CENTER GASTROENTEROLOGY DEPT. [place] [id number] Social History Tobacco Use Types Packs/Day Years [...] ed documented as of this encounter Results IR abdominal drainage procedure (03/22/2013 3:26 PM [...] NOTE ?? Procedure: US-guided paracentesis ?? ACC#: [id number] ?? Indication: 62 yo female with acute [...] the needle was sadi alex. A 6Fr Mikayla cath was advanced over the wire into the peritoneal space. A total of 2000cc serous fluid was withdrawn. Fluid sent to lab as requeste d. ?? Procedure Note Amy Prince MD - 03/23/2013 VIR PROCEDURE NOTE Procedure: US-guided paracentesis ACC#: [id number] Indication: 62 yo female with acute hepa [...] the needle was sadi alex. A 6Fr Limerick cath was advanced over the wire into [...] available for the remainder of the procedure. Corby Cano MD IMG IR ORDERABLES Protein Level Body Fluid (03/22/2013 3:00 PM EST) athologist Signature Protein, BF 0.5 gm/dL CERNER [...] (specimen) Resulting Agency Comment Spec In Lab Corby Caon MD BODY FLUIDS AND STOOLS ORDER AYAD Performing Organization Address City/State/[place] [address] CERNER MILLENNIUM Albumin Level Body Fluid (03/22/2013 3:00 PM EST) athologist Signature Albumin, BF <1.0 gm/dL CERNER [...] (specimen) Resulting Agency Comment Spec In Lab Corby Cano MD BODY FLUIDS AND STOOLS ORDER AYAD Performing Organization Address City/State/[place] [address] CERNER MILLENNIUM Cell Count Body Fluid (03/22/2013 3:00 PM EST) [facility] gist Method Time Signature Spec Type BF [...] (specimen) Resulting Agency Comment Spec In Lab Corby Cano MD BODY FLUIDS AND STOOLS ORDER AYAD Performing Organization Address City/State/[place] [address] [address] [facility] documented in this encounter Visit Diagnoses Diagnosis Ascites - Primary Other ascites Ascites Other ascites documented in this encounter Care Teams Transition Specialist Relationship Specialty Start Date End Date Sanjuanita Lee MD PCP - General 03/05/13 12/23/[address] [place] [address] documented as of this encounter
--- OUTSIDE RECORDS SUMMARY | 2022-02-22 23:39 | XMS_ITS | Encounter Summary ---
:1950 Author Organization [facility] [place] [address] Care Team Providers Name Role Phone Sanjuanita Lee MD Primary Care Provider Reason for Visit Reason Comments Follow-up Encounter Details Date Type Department Care Team Description 02/07/2016 Office Visit Gastroenterology at [facility] Nakul Watt, Hepatitis B [facility] Jennifer [place] [address] [facility] agent without [phone] CENTER hepatic coma, GASTROENTEROLOGY [place] [address] Social History Tobacco Use Types Packs/Day Years [...] Sign Reading Time Taken Comments Blood Pressure 134/61 02/07/2016 8:29 AM EDT Pulse 61 02/07/2016 8:29 AM EDT Temperature - - Respiratory Rate - - Oxygen Saturation - - Inhaled Oxygen Concentration - - Weight 52.6 kg (116 lb) 02/07/2016 8:29 AM EDT Height 153.7 cm (5' 0.5) 02/07/2016 8:29 AM EDT Body Mass Index 22.28 02/07/2016 8:29 AM EDT documented in this encounter Patient Instructions Patient InstructionsNakul Watt - 02/07/2016 8:30 AM EDT 1. Check labs today 2. Schedule an ultrasound for now, pending verification of prior records 3. Fruits/vegetables/good lfuid intake/benefiber (20gm daily) 4. Colace 100mg daily 5. Consider miralax as needed if you dont have a BM for 3 days 6. Restart kegel exercise 10 reps, three sets/day 7. RTC in 6 months documented in this encounter Progress Notes Nakul Watt - 02/07/2016 8:30 AM EDT [facility] Department of Gastroenterology Outpatient Clinic Note GI Problem List: Hepatitis B -Presented with jaundice, fatigue, nausea and vomiting -AST 1200 ALT 1300 Tbili 20 ALb 2.4 INR 1.8 ?? -Lamivudine 100 mg initiated . d/c 07/15/2013 -Tenofovir 300 mg started 07/15/2013 -ASMA <20, KAYLEE neg, IgG 1260, IgM 516, IgA 320 -Abd US 10/2014 normal liver, cholelithiasis -Hep B S Ab negative 2012, Hep B Core IgG positive-Hep BE Ab positive-Hep B S Ag negative 11/2014 -Hep B S Ab positive 04/2015 -Fibroscan 01/2016 F2 - 7.3/28%/100% Health Maintenance: Hepatitis A vaccine: 04/07/14, 11/2014 Hepatitis B vaccine: infected Constipation -BM every week -Regular BMs until hysterectomy in Interval Events: Pt feels well generally. Of note pt states 1 BM every 8 days since hysterectomy in the . Pt would like to have BMs more regularly, notes straining with BMs. Pt denies BRBPR/melena/pain with defection/weight loss/dysphagia/odynophagia/ascites/pedal edema/f/c/n/v/d. Medications: Current Outpatient Prescriptions on File Prior to Visit Medication Sig Dispense Refill ??? Cholecalciferol, Vitamin D3, (VITAMIN D-3) 2,000 unit Capsule Take 1,000 Units by mouth. ??? omeprazole (PRILOSEC) 20 mg Capsule, Delayed [...] mouth daily. (Patient not taking: Reported on 02/07/2016) 90 tablet 2 ??? citalopram (CELEXA) 20 mg tablet No current facility-administered medications on file prior to visit. PHYSICAL EXAM: Vitals: Last value Range last 24 hrs Temperature Temp: -- Heart Rate Heart Rate: 61 Heart Rate: [61] Blood Pressure BP: 134/61 BP: (134)/(61) Respiratory Rate Resp: -- SpO2 SpO2: -- Wt Readings from Last 3 Encounters: 02/07/16 52.6 kg (116 lb) 05/18/15 49 kg (108 lb) 12/08/14 48.1 kg (106 lb) Body mass index is 22.28 kg/(m^2). Exam: Gen: AAOX3, NAD, cooperative HEENT: EOMI, Anicteric sclera, MMM CV: RRR, S1, S2, no murmurs, rub, click or lance appreciated Resp: CTAB, no rales, wheezing, rhonchi, normal respiratory effort Abd: Soft, NT, ND, NABS, No HSM appreciated Back: No CVA tenderness noted Rectal: mildly weak tone on squeezing, nontender, no hemorrhoids EXT: No pedal edema Skin: No rashes, sores or ulcers Neuro: Grossly nonfocal Labs: Recent Labs 02/07/16 0951 WBC 7.0 HGB 15.2 HCT 44.7 PLATELET 204 NEUTROABS 4.23 Recent Labs 02/07/16 0951 NA 142 K 4.7 CL 103 CO2 26 BUN 20* CREATININE 1.12 Recent Labs 02/07/16 0951 CALCIUM 10.0 Recent Labs 02/07/16 0951 AST 19 ALT 9 ALKPHOS 66 BILITOT 0.3 BILIDIR 0.1 Recent Labs 02/07/16 0951 INR 1.0 PT 14.0 PTT 30 Imaging: Abd US: Cholelithiasis, normal liver ASSESSMENT/PLAN: 64 year old female with chronic hepatitis B treated with lamivudine, transitioned to tenofovir, withseroconversion now off antivirals presents to GI clinic for follow-up. Repeat labs note normal ALT, indeterminate Hep B S Ab (previously positive). Plan to f/u HBV DNA. Recent abdominal ultrasound unrem arkable, fibroscan revealed F2 fibrosis. Plan RTC in 12 months. From constipation standpoint, suspect pelvic floor dysfunction. Plan for diet, stool softeners, miralax prn, and daily kegel exercises. Recommendations: -F/u HBV load -RTC in 1 year -Fruits/vegetables/avoid starches -Colace daily -Miralax prn if no BM for 3 days -Daily kegel exercises (10 reps TID) Electronically signed by: Nakul Watt Gastroenterology Fellow [facility] Pager [phone] 02/07/2016 Quinten Burnham MD - 02/07/2016 8:30 AM EDT I discussed the care of Ms. Harmon with Deion Watt and I agree with the assessment and plan as outlined in his note from today. documented in this encounter Plan of Treatment Scheduled Procedures Name Priority Associated Diagnoses Date/Time EGD, UPPER GI ENDOSCOPY Gastroesophageal reflux disease, esophagitis presence not specifi ed documented as of this encounter Procedures Procedure Name Priority Date/Time Associated Comments Diagnosis HBV QUANT Routine 02/07/2016 9:51 AM Hepatitis B Results f or this EDT infection without procedure are in delta agent without the resu lts hepatic coma, section. unspecified chronicity HEPATITIS B DNA, Routine 02/07/2016 9:51 AM Hepatitis B QUANTITATIVE, PCR EDT infection without delta agent without hepatic coma, unspecified chronicity HEMOGRAM Routine 02/07/2016 9:51 AM Hepatitis B Results f or this EDT infection without procedure are in delta agent without the resu lts hepatic coma, section. unspecified chronicity DIFFERENTIAL, Routine 02/07/2016 9:51 AM Hepatitis B Results for this AUTOMATED EDT infection without procedure are in delta agent without the resu lts hepatic coma, section. unspecified chronicity HEPATITIS BE ANTIGEN Routine 02/07/2016 9:51 AM Hepatitis B R esults for this AND ANTIBODY EDT infection without procedure are in delta agent without the resu lts hepatic coma, section. unspecified chronicity HEPATITIS B CORE Routine 02/07/2016 9:51 AM Hepatitis B Resul ts for this ANTIBODY, IGM EDT infection without procedure are in delta agent without the resu lts hepatic coma, section. unspecified chronicity HEPATITIS B CORE Routine 02/07/2016 9:51 AM Hepatitis B Resul ts for this ANTIBODY, TOTAL EDT infection without procedu re are in delta agent without the resu lts hepatic coma, section. unspecified chronicity HEPATITIS B SURFACE Routine 02/07/2016 9:51 AM Hepatitis B Re sults for this ANTIBODY EDT infection without procedure are in delta agent without the resu lts hepatic coma, section. unspecified chronicity HEPATITIS B SURFACE Routine 02/07/2016 9:51 AM Hepatitis B Re sults for this ANTIGEN EDT infection without procedure are in delta agent without the resu lts hepatic coma, section. unspecified chronicity APTT Routine 02/07/2016 9:51 AM Hepatitis B Results f or this EDT infection without procedure are in delta agent without the resu lts hepatic coma, section. unspecified chronicity PROTHROMBIN TIME Routine 02/07/2016 9:51 AM Hepatitis B Resul ts for this EDT infection without procedure are in delta agent without the resu lts hepatic coma, section. unspecified chronicity CBC (WITH DIFF) Routine 02/07/2016 9:51 AM Hepatitis B EDT infection without delta agent without hepatic coma, unspecified chronicity COMPREHENSIVE Routine 02/07/2016 9:51 AM Hepatitis B Results for this METABOLIC PANEL EDT infection without procedu re are in (NON-FASTING) delta agent without the res ults hepatic coma, section. unspecified chronicity documented in this encounter Results Differential, Automated (02/07/2016 9:51 AM EDT) athologist Signature Neutrophils % 60.8 % [facility] Neutr Abs (ANC) 4.23 1.70 - [facility] 6.10 [facility] x10(3)/[facility] LABORATORY Lymphocytes % 23.2 % [facility] Lymphocytes Abs 1.6 0.9 - 3.2 [facility] x10(3)/[facility] LABORATORY Monocytes % 8.9 % [facility] Monocyte Abs 0.6 0.3 - 0.9 [facility] x10(3)/[facility] LABORATORY Eosinophils % 5.7 % [facility] Eosinophils Abs 0.4 0.0 - 0.4 [facility] x10(3)/[facility] LABORATORY Basophils % 1.1 % [facility] Basophils Abs 0.1 0.0 - 0.1 [facility] x10(3)/[facility] LABORATORY Immature Gran % 0.30 % [place] [...] Blanca Gran Abs 0.02 0.00 - 0.04 x10(3)/[facility] MAR Y [facility] LAB[facility] Specimen Anatomical Collection Method Collection Time Receive d Time (Source) Location / / Volume Laterality Blood specimen 02/07/2016 9:51 AM 016 9:58 (specimen) EDT AM EDT Resulting Agency Comment Spec In Lab Quinten Burnham MD HEMATOLOGY ORDERABLES Performing Organization Address City/State/Z[place] [address] [facility] [address] Hemogram (02/07/2016 9:51 AM EDT) P athologist Signature WBC 7.0 4.0 - 9.5 [facility] LABORATORY RBC 4.95 4.00 - [place] 5.21 [facility] x10(6)/[facility] LABORATORY Hemoglobin 15.2 11.7 - [place] [facility] 15.5 gm/dL [facility] Hematocrit 44.7 35.7 - [facility] VICENTE 45.8 % [facility] MCV 90.3 82.6 - [facility] 94.4 [facility] LABORATORY MCH 30.7 27.1 - [employer] 32.0 pg [facility] MCHC 34.0 31.7 - [place] [facility]ENT[facility] 35.0 gm/dL [facility] Platelets 204 145 - 357 [facility] LABORATORY RDWSD 42.3 37.0 - [place]ENT[place] 46.0 [facility] LABORATORY RDWCV 12.8 11.5 - [place] [facility]ENT[facility] 14.1 % [facility] MPV 11.0 7.6 - 12.9 [place] VICENTE [facility] LABORATORY nRBC % Auto 0.0 % [facility] nRBC Abs Auto 0.000 0.000 - [facility] x10(3)/[facility] LABORATORY Specimen Anatomical Collection Method Collection Time Receive d Time (Source) Location / / Volume Laterality Blood specimen 02/07/2016 9:51 AM 016 9:58 (specimen) EDT AM EDT Resulting Agency Comment Spec In Lab Quinten Burnham MD HEMATOLOGY ORDERABLES Performing Organization Address City/State/ZIP Code Phon e Number [address] HBV Quant (02/07/2016 9:51 AM EDT) Component Value Ref Test Analysis Performed At Patholo gist Range Method Time Signature Hepatitis B Result: <20 IU/mL (Target Not Detected) VICENTE MARCELO quantitative, Indication for Study: Hepatitis B Infection [facility] Analysis: A quantitative real time reverse transcriptase P CR assay was LABORATORY performed on extracted viral RNA for the purpose of quantifi cation. Sample: plasma (0.5 mL minimum volume) Method: Zoey Chivo TaqMAN 48 HBV Linear Range: 20IU/mL - 170,000,000 IU/mL (95% CI) Interpretation: The result of this analysis is w ithin the limits of detection of the assay. Note: This assay is being pe rformed in the [facility] Molecular Pathology Laboratory. Reno Sage, Ph.D. Director, Molecular Pathology Specimen Anatomical Collection Method Collection Time Receive d Time (Source) Location / / Volume Laterality Blood specimen 02/07/2016 9:51 AM 016 (specimen) EDT 10:50 AM EDT Resulting Agency Comment Spec In Lab Quinten uBrnham MD CHEMISTRY ORDERABLES Performing Organization Address City/State/[place] [address] (ABNORMAL) Comprehensive metabolic panel (non-fasting) (02/07/2016 9:51 AM EDT) athologist Signature Glucose Lvl 120 65 - 199 [facility] mg/dL [facility] Comment: Diabetes: >=200 mg/dL plus symp toms BUN 20 (H) 8 - 18 mg/dL [facility] Creatinine 1.12 0.70 - 1.20 mg/dL [facility] Comment: Please note that the pediatric reference intervals supplied above were not validated at [facility]. Results from pediatri c patients should be interpreted in conjunction to the patient's age, height and muscle mass. Sodium 142 135 - 145 mmol/L [facility] Potassium 4.7 3.5 - 5.0 mmol/L [facility] Comment: Please note: ??Patients with [...] Anion Gap 13 5 - 15 mmol/L [facility] Calcium 10.0 8.5 - 10.5 mg/dL [facility] Total Protein 7.1 6.1 - 8.0 gm/dL [facility] Albumin 4.4 3.2 - 5.2 gm/dL [facility] AST 19 0 - 30 unit/L [facility] ALT 9 0 - 30 unit/L [facility] Alk Phos 66 40 - 104 unit/L [facility] Total Bilirubin 0.3 0.2 - 1.3 mg/dL [facility] Bili, Direct 0.1 0.0 - 0.3 mg/dL [facility] Estimated GFR 49 (L) >=60 [facility] Comment: This estimated GFR (eGFR) value was [...] the following links into your internet browser. [email or web address] [email or web address] Specimen Anatomical Collection Method Collection Time Receive d Time (Source) Location / / Volume Laterality Blood specimen 02/07/2016 9:51 AM 016 9:58 (specimen) EDT AM EDT Resulting Agency Comment Spec In Lab Quinten Burnham MD CHEMISTRY ORDERABLES Performing Organization Address City/State/[place] [address] APTT (02/07/2016 9:51 AM EDT) P athologist Signature PTT 30 25 - 35 sec [facility] Comment: The recommended therapeutic range for fu ll dose, unfractionated heparin at [facility] is 80 ? 114 seconds. The use of the anti-Xa (heparin) level rather than the PTT is recommended for monitoring anticoagul ation intensity in critically ill patients receiving unfractionated hepari n by continuous IV infusion. Specimen Anatomical Collection Method Collection Time Receive d Time (Source) Location / / Volume Laterality Blood specimen 02/07/2016 9:51 AM 016 9:58 (specimen) EDT AM EDT Resulting Agency Comment Spec In Lab Quinten Burnham MD HEMATOLOGY ORDERABLES Performing Organization Address [facility] [place] [address] Prothrombin Time (02/07/2016 9:51 AM EDT) athologist Signature PT 14.0 12.0 - 15.0 [facility] LABORATORY Comment: An INR <2.0 indicates adequate [...] be appropriate depending on c linical circumstances. INR 1.0 0.9 - 1.1 [facility]OR[facility] Specimen Anatomical Collection Method Collection Time Receive d Time (Source) Location / / Volume Laterality Blood specimen 02/07/2016 9:51 AM 016 9:58 (specimen) EDT AM EDT Resulting Agency Comment Spec In Lab Quinten Burnham MD HEMATOLOGY ORDERABLES Performing Organization Address [facility] [place] [address] (ABNORMAL) Hepatitis BE Antigen and Antibody (02/07/2016 9:51 AM EDT) athologist Signature Hep B E Ag Negative Negative [facility] Comment: Test Performed by: [facility] [address] [place] [id number] Relay Dispatcher: Prashant Hilario II, M.D., Ph.D. Hep B E Ab Positive (A) Negative [facility] Comment: Test Performed by: [address] [address] Relay Dispatcher: Prashant Hilario II, M.D., Ph.D. Specimen Anatomical Collection Method Collection Time Receive d Time (Source) Location / / Volume Laterality Blood specimen 02/07/2016 9:51 AM 016 2:52 (specimen) EDT PM EDT Resulting Agency Comment Spec In Lab Quinten Burnham MD IMMUNOLOGY ORDERABLES Performing Organization Address City/[facility]/ZIP Code Phon e Number [address] Hepatitis B Surface Antigen (02/07/2016 9:51 AM EDT) Analysis Performed At Patho logist Time Signature HepB Surface Negative Negative [facility] LABORATORY Specimen Anatomical Collection Method Collection Time Receive d Time (Source) Location / / Volume Laterality Blood specimen 02/07/2016 9:51 AM 016 9:58 (specimen) EDT AM EDT Resulting Agency Comment Spec In Lab Quinten Burnham MD CHEMISTRY ORDERABLES Performing Organization Address City/[facility]/ZIP Code Phon e Number [address] Hepatitis B Surface Antibody (02/07/2016 9:51 AM EDT) Patholo gist Method Time Signature HepB Surface 10 IU/L [facility] Quant [facility] HepB Surface Indeterminate [facility] LABORATORY Comment: Unable to determine if the antibody is p resent at concentrations consistent with immunity to HBV infection. Expected Results: Vaccinated: Positive Unvaccinated: Negative Specimen Anatomical Collection Method Collection Time Receive d Time (Source) Location / / Volume Laterality Blood specimen 02/07/2016 9:51 AM 016 9:58 (specimen) EDT AM EDT Resulting Agency Comment Spec In Lab Quinten Burnham MD IMMUNOLOGY ORDERABLES Performing Organization Address City/[facility]/ZIP Code Phon e Number [address] Hepatitis B Core Antibody, IgM (02/07/2016 9:51 AM EDT) Analysis Performed At Patho logist Time Signature Hep B Core IgM Negative Negative [facility] Comment: Test Performed by: [facility] Drive [address] [place] [id number] Relay Dispatcher: Prashant Hilario II, M.D., Ph.D. Specimen Anatomical Collection Method Collection Time Receive d Time (Source) Location / / Volume Laterality Blood specimen 02/07/2016 9:51 AM 016 2:52 (specimen) EDT PM EDT Resulting Agency Comment Spec In Lab Quinten Burnham MD IMMUNOLOGY ORDERABLES Performing Organization Address City/State/[place] [address] (ABNORMAL) Hepatitis B Core Antibody, Total (02/07/2016 9:51 AM EDT) Patholo gist Method Time Signature Hep B Core Ab Positive (A) Negative [facility]ORY Specimen Anatomical Collection Method Collection Time Receive d Time (Source) Location / / Volume Laterality Blood specimen 02/07/2016 9:51 AM 016 9:58 (specimen) EDT AM EDT Resulting Agency Comment Spec In Lab Quinten Burnham MD CHEMISTRY ORDERABLES Performing Organization Address City/[facility]/[place] [address] documented in this encounter Visit Diagnoses Diagnosis Hepatitis B infection without delta agen t without hepatic coma, unspecified chronicity documented in this encounter Care Teams Education Site Manager Relationship Specialty Start Date End Date Sanjuanita Lee MD PCP - General 03/05/13 12/23/21 [address] [place] [address] documented as of this encounter
--- OUTSIDE RECORDS SUMMARY | 2022-02-22 23:39 | XMS_ITS | Encounter Summary ---
:1950 Author Organization [facility] [place] [address] Care Team Providers Name Role Phone Sanjuanita Lee MD Primary Care Provider Reason for Visit Reason Comments Follow-up Encounter Details Date Type Department Care Team Description 11/11/2013 Follow-Up Gastroenterology at [facility] Nuha Rico, Cirrhosis of liver [facility] Jennifer ivory APRN (Primary Dx) [place] [address] [facility] [phone] CENTER GASTROENTEROLOGY DEPT. [place], [place] [address] Social History Tobacco Use Types [...] Sign Reading Time Taken Comments Blood Pressure 136/64 11/11/2013 2:51 PM EDT Pulse 67 11/11/2013 2:51 PM EDT Temperature - - Respiratory Rate - - Oxygen Saturation - - Inhaled Oxygen Concentration - - Weight 49.9 kg (110 lb) 11/11/2013 2:51 PM EDT Height - - Body Mass Index 21.48 07/15/2013 10:17 AM EDT documented in this encounter Progress Notes Jacky Nuha Benjamin, KYRA - 11/11/2013 3:47 PM EDT Subjective: Patient ID: Charlene Harmon is a 63 y.o. female. GI PROBLEM LIST: 1. Acute hepatitis B, presented with jaundice, fatigue, nausea and vomiting AST 1200 ALT 1300 Tbili 20 ALb 2.4 INR 1.8 HBV DNA pending HBEag HBEab Lamivudine 100 mg initiated 03.04.2013 d/c 07/15/2013 Tenofovir 300 mg started 07/16/2103 OUTSIDE STUDIES: 02/26/2013 02/28/13 03/03/13 03/05/13 03/07/13 03/10/13 03/30/13 05/09/13 07/07/13 10/07/13 ast 1066 1092 1285 835 775 666 62 38 30 alt 1328 1363 1307 827 745 679 48 27 21 tbili 13.13 16.3 19.9 16.7 16.3 15.5 7.6 1.8 0.95 inr 1.8 1.8 1.8 2 1.8 1.7 1.3 tprot 5.3 alb 2.4 ap 190 plt 112 Hep BcIGM pos Hep Bsag pos Hep cab neg HBV DNA 1,1247,748 2440 p <20 iu 03/03/2013 abd ultrasound Mild gallbladder distension without evidence of cholelithiasis or gallbladder wall thickening 02/26/[address] Moderate intrahepatic biliary dilatation and probable extra hepatic biliary dilatation as well. Gallbladder is distended. The gallbladder wall appears mildly thickened. Finding inconclusive for cholelithiasis 03.03.2013 ASMA <20, KAYLEE neg, IgG 1260, IgM 516, IgA 320 Ms. Harmon returns today for follow up and is doing well. The jaundice has resolved, she is back at work. She tried to discontinue the diuretics in early May but noted weight gain and therefore is on 20 mg of lasix and 50 mg of aldactone. She has no complaints referable to her liver. Her tremor hasresolved. Review of Systems Constitutional: Negative for fatigue. Respiratory: Negative for cough. Cardiovascular: Negative for chest pain. Gastrointestinal: Negative for nausea, vomiting, abdominal pain and diarrhea. Skin: Negative for rash. Objective: Physical Exam Constitutional: She appears well-developed and well-nourished. HENT: Head: Normocephalic and atraumatic. Eyes: Pupils are equal, round, and reactive to light. No scleral icterus. Skin: Skin is warm and dry. Psychiatric: She has a normal mood and affect. Her behavior is normal. Assessment and Plan: Ms. Harmon is a 62 year old female with acute hepatitis B, she started 100 mg of lamivudine 03/04/2013,this was switched to Tenofovir in August of 2013. 1. Hepatitis B, she will continue on the tenofovir 300 mg a day. Will check serologies again in February. 2. Jaundice has resolved. 3. Edema, has been weaned of aldactone and continues on low dose lasix, may be able to stop this in the near future. 4. Fibrosis stage, the results of today's fibroscan suggest cirrhosis, she does have a history of thrombocytopenia also supportive of the diagnosis of cirrhosis. Will proceed with screening EGD to lookfor varices. I will see her back in 5-6 months. documented in this encounter Plan of Treatment Scheduled Orders Name Type Priority Associated Diagnoses Order S chedule UPPER GI ENDOSCOPY Procedures Routine Cirrhosis of liver Ord ered: 11/11/2013 Scheduled Procedures Name Priority Associated Diagnoses Date/Time EGD, UPPER GI ENDOSCOPY Gastroesophageal reflux disease, esophagitis presence not specifi ed documented as of this encounter Visit Diagnoses Diagnosis Cirrhosis of liver - Primary Cirrhosis of liver without mention of al cohol documented in this encounter Care Teams Manager Student Services Relationship Specialty Start Date End Date Sanjuanita Lee MD PCP - General 03/05/13 12/23/[address] [place] [address] documented as of this encounter
--- OUTSIDE RECORDS SUMMARY | 2022-02-22 23:39 | XMS_ITS | Encounter Summary ---
:1950 Author Organization [place] [address] Care Team Providers Name Role Phone Sanjuanita Lee MD Primary Care Provider Reason for Visit Reason Comments Other Encounter Details Date Type Department Care Team Description 03/14/2013 Telephone Gastroenterology at [facility] [place] Potter, [place] [address] Social History Tobacco Use Types Packs/Day [...] this encounter Miscellaneous Notes Telephone Encounter - Lola Potter RN - 03/14/2013 4:54 PM EST Left message for patient regarding management of work; asked her to call back if further direction needed. 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 Phillip ----- Message ----- From: Lola Potter RN Sent: 03/14/2013 10:28 AM To: Phillip Rico APRN Subject: re: work She would like to know if ok to go to office to retrieve some work to bring home with her .... documented in this encounter Plan of Treatment Scheduled Procedures Name Priority Associated Diagnoses Date/Time EGD, UPPER GI ENDOSCOPY Gastroesophageal reflux disease, esophagitis presence not specifi ed documented as of this encounter Visit Diagnoses Not on filedocumented in this encounter Care Teams Cardio Clinician Relationship Specialty Start Date End Date Sanjuanita Lee MD PCP - General 03/05/13 12/23/[address] [place] [address] documented as of this encounter
--- OUTSIDE RECORDS SUMMARY | 2022-02-22 23:39 | XMS_ITS | Encounter Summary ---
:1950 Author Organization [facility] [place] [address] Care Team Providers Name Role Phone Sanjuanita Lee MD Primary Care Provider Reason for Visit Reason Onset Date Comments Medication Refill 02/05/2015 Viread Encounter Details Date Type Department Care Team Description 02/02/2015 Refill Gastroenterology at [facility] Migdalia Gordon MA [facility] [place] [address] Social History Tobacco Use Types Packs/Day [...] on filedocumented in this encounter Care Teams Backup Administrator Relationship Specialty Start Date End Date Sanjuanita Lee MD PCP - General 03/05/13 12/23/[address] [place] [address] documented as of this encounter
--- OUTSIDE RECORDS SUMMARY | 2022-02-22 23:39 | XMS_ITS | Encounter Summary ---
:1950 Author Organization [facility] Address [facility] [address] Care Team Providers Name Role Phone Sanjuanita Lee MD Primary Care Provider Encounter Details Date Type Department Care Team Description 03/31/2013 Telephone Gastroenterology at [facility] [place] Nuha Rico APRN [facility] [place] [address] GASTROENTEROLOGY [phone] DEPT. [place], [place] [address] Social History Tobacco Use Types [...] this encounter Miscellaneous Notes Telephone Encounter - Nuha Rico APRN - 03/31/2013 8:56 AM EST Telephone call placed to patient she reports that she is feeling better, the fluid in her abdomen has not returned, she still has peripheral edema. She saw her PCP yesterday and had labs done yesterday. Plan: continue on 40 mg of lasix, 100 mg of aldactone Weekly labs Follow up appt next week documented in this encounter Plan of Treatment Scheduled Procedures Name Priority Associated Diagnoses Date/Time EGD, UPPER GI ENDOSCOPY Gastroesophageal reflux disease, esophagitis presence not specifi ed documented as of this encounter Visit Diagnoses Not on filedocumented in this encounter Care Teams Executive Administrator Relationship Specialty Start Date End Date Sanjuanita Lee MD PCP - General 03/05/13 12/23/[address] [place] [address] documented as of this encounter
--- OUTSIDE RECORDS SUMMARY | 2022-02-22 23:39 | XMS_ITS | Encounter Summary ---
:1950 Author Organization [facility] Address [facility] [place] [address] Care Team Providers Name Role Phone Sanjuanita Lee MD Primary Care Provider Encounter Details Date Type Department Care Team Description 03/08/2013 Telephone Internal Medicine at [facility] [place] Dwayne Douglass MD [facility] [place] [address] GENERAL INTERNAL MEDICINE [phone] [place] [address] (Wo rk) Social History Tobacco Use Types [...] this encounter Miscellaneous Notes Telephone Encounter - Dwayne Douglass - 03/08/2013 2:28 PM EST Called patient today (day after discharge) to go over precautions while potentially infective stage of hep B, particularly avoiding sexual activity or IVDU, but also limiting lower risk activities likesharing toothbrushes or razors, and potentially avoiding sharing foods for now (even though this would be very low risk). Also informed that she might hear from CDC or state after case is reported. documented in this encounter Plan of Treatment Scheduled Procedures Name Priority Associated Diagnoses Date/Time EGD, UPPER GI ENDOSCOPY Gastroesophageal reflux disease, esophagitis presence not specifi ed documented as of this encounter Visit Diagnoses Not on filedocumented in this encounter Care Teams Regional Medical Director Relationship Specialty Start Date End Date Sanjuanita Lee MD PCP - General 03/05/13 12/23/[address] [place] [address] documented as of this encounter
--- OUTSIDE RECORDS SUMMARY | 2022-02-22 23:39 | XMS_ITS | Encounter Summary ---
:1950 Author Organization [facility] [place] [address] Care Team Providers Name Role Phone Sanjuanita Lee MD Primary Care Provider Encounter Details Date Type Department Care Team Description 01/20/2014 Hospital Encounter Gastroenterology at [facility] [place] Radha Mabry MD [facility] [place] [address] [facility] Corby Rossi MD [facility] [place] [address] [place] [address] Social History Tobacco Use Types Packs/Day [...] Sign Reading Time Taken Comments Blood Pressure 125/59 01/20/2014 9:33 AM EDT Pulse 68 01/20/2014 9:33 AM EDT Temperature - - Respiratory Rate 16 01/20/2014 9:33 AM EDT Oxygen Saturation 97% 01/20/2014 9:33 AM EDT Inhaled Oxygen Concentration - - Weight 49.9 kg (110 lb) 01/20/2014 8:11 AM EDT Height - - Body Mass Index 21.48 07/15/2013 10:17 AM EDT documented in this encounter Discharge Instructions Discharge InstructionsKath Bhandari RN - 01/20/2014 9:35 AM EDT UPPER GI ENDOSCOPY WHAT TO EXPECT AFTER THE PROCEDURE After the test you may feel a little more gassy or bloated than usual, this is normal. ACTIVITY Because of the sedation that you received Your judgement and reaction time are affected ?? Go home and rest quietly for the remainder of the day. You may resume your normal activities tomorrow. ?? Change from one position to the next slowly. You may lose your balance unexpectedly Be careful on stairs, as you may be unsteady on your feet. FOR THE NEXT 24 HRS ?? DO NOT DRIVE OR OPERATE ANY MACHINERY ?? DO NOT DRINK ALCOHOLIC BEVERAGES ?? DO NOT SIGN LEGAL DOCUMENTS ?? If you are a smoker: DO NOT SMOKE WHILE YOU ARE ALONE Diet ?? Start by eating small portions of foods that ordinarily will not upset your stomach. Be gentle with what you choose to start with. ?? Drink plenty of fluids ( unless otherwise told not to) Medications You may have a mild sore throat. Ice chips, popsicles, over the counter throat lozenges or spray may help numb your throat. This procedure should not cause a fever. IV SITE-- slight redness or tenderness is normal, you can use warm compresses if you get concerned.If the tenderness +/or redness increases or foul drainage and a red streak occurs, please contact your PCP immediately. WHEN SHOULD YOU CALL FOR HELP? Call 911 anytime you think that you need emergency care. For example, call if: You passed out (lost consciousness). You cough up blood. You vomit blood or what looks like coffee grounds. You pass maroon or very bloody stools. Call your healthcare provider or seek immediate medical attention if: You have trouble swallowing. You have belly pain. Your stools are black or tarlike or have streaks of blood. You are sick to your stomach or cannot keep fluids down. Watch closely for changes in your health, and be sure to contact your doctor IF Your throat still hurts after a day or two You do not get better as expected. [facility] [phone] 8a-5p Same Day Endo [phone] 7a-8p Otherwise contact [phone] and ask to speak to the drying unit felting machine operator regional agronomist Follow-up care is a burgess part of your treatment and safety. Be sure to make and go to all appointments, and call your doctor if you are having problems. Instructions have been reviewed and patient expresses understanding documented in this encounter Medications at Time of Discharge Medication Sig Dispensed Refills Start Date End Date simvastatin (ZOCOR) 20 mg 0 07/08/2013 02/24/2018 tablet spironolactone (ALDACTONE) Take 25 mg by 0 02/24/2018 50 mg tablet mouth every other day. tenofovir (VIREAD) 300 mg Take 1 tablet by 90 tablet 3 06/2607/19/2014 tablet mouth daily. amlodipine (NORVASC) 10 mg Take 10 mg by 0 201209/14/2018 tablet mouth daily. citalopram (CELEXA) 20 mg 0 02/17/2013 02/24/2018 tablet omeprazole (PRILOSEC OTC) Take 1 tablet by 30 tablet 11 02/2503/07/2014 20 mg tablet mouth daily. magnesium oxide (MAG-OX) Take 1 tablet by 30 tablet 5 03/0702/24/2018 400 mg tablet mouth daily. aspirin 81 mg EC tablet Take 1 tablet by 30 tablet 3 201206/14/2018 mouth daily. melatonin 3 mg Tab Take 10 mg by 0 mouth nightly. documented as of this encounter H&P Notes Corby Cano MD - 01/20/2014 9:10 AM EDT Gastroenterology and Hepatology Pre-Procedure History and Physical Exam Procedure: EGD: Indication:screen for varices Patient Active Problem List Diagnosis Code ??? Acute hepatitis 570 ??? Viral hepatitis B acute 070.30 EXAM: HEENT: Airway examined, oropharynx clear II (soft palate, uvula, fauces visible) LUNGS: Clear to auscultation HEART: Regular rate and rhythm, normal S1, S2 ABDOMEN: Normal bowel sounds, soft, non tender, non distended, A/P Proceed with the planned endoscopic procedure. ASA 3 - Patient with moderate systemic disease with functional limitations Risks and benefits of the procedure explained to the patient. Consent signed. documented in this encounter Miscellaneous Notes Miscellaneous - Provider, Scanning - 01/20/2014 9:45 PM EDT Miscellaneous - Provider, Scanning - 01/20/2014 1:50 PM EDT documented in this encounter Plan of Treatment Scheduled Procedures Name Priority Associated Diagnoses Date/Time EGD, UPPER GI ENDOSCOPY Gastroesophageal reflux disease, esophagitis presence not specifi ed documented as of this encounter Procedures Procedure Name Priority Date/Time Associated Diagnosis Comme nts EGD, UPPER GI 01/20/2014 9:10 AM Cirrhosis of liver ENDOSCOPY EDT UPPER GI ENDOSCOPY Routine 01/20/2014 8:41 AM Res ults for this EDT procedure are i n the results section. documented in this encounter Results UPPER GI ENDOSCOPY (01/20/2014 8:41 AM EDT) [facility] gist Method Time Signature UPPER GI [facility] ENDOSCOPY Endoscopy Patient Name: Charlene Harmon ? Procedure Date: 01/20/2014 8:41 AM ? Date of : 1950 ? Age: 63 ? Order #: [id number] ? Procedure: ? Upper GI endoscopy Indications: ? Cirrhosis with suspected esophageal ? varices Providers: ? Corby Cano MD, Nancy ? LAWRENCE Pompa, Jennifer Olivarez, ? Alma Brooks MD: ?Sanjuanita Lee MD Medicines: ? Midazolam 2.5 mg IV, Fentanyl 100 ? micrograms IV Complications: ? No immediate complications. Procedure: ? Pre-Anesthesia Assessment: ? - Prior to the procedure, a H istory ? and Physical was performed, a nd ? patient medications, allergie s and ? sensitivities were reviewed. The ? patient's tolerance of previo us ? anesthesia was reviewed. ? - The risks and benefits of t he ? procedure and the sedation op tions ? and risks were discussed with the ? patient. All questions were a nswered ? and informed consent was obta ined. ? The procedure, indications, b enefits, ? risks and alternatives were e xplained [...] difficulty. The patie nt ? tolerated the procedure well. ? Findings: ? The Z-line was regular and was found 38 cm from the ? incisors. ? The entire examined stomach was normal. ? The examined duodenum was normal. ? Impression: ?- Z-line regular, 38 cm from the ? incisors. ? - Normal stomach. ? - Normal examined duodenum. Recommendation: ?- Repeat the upper endoscopy in 3 ? years for surveillance. ? Corby Cano MD 01/20/2014 9:26 AM Number of Addenda: 0 Note Initiated On: 01/20/2014 8:41 AM Specimen (Source) Anatomical Collection Method Collection Time Re ceived Time Location / / Volume Laterality 01/20/2014 8:41 AM EDT Sanjuanita Lee MD GENERAL SURGICAL ORDERABLES Performing Organization Address City/State/ZIP Code Phon e Number [employer] documented in this encounter Visit Diagnoses Not on filedocumented in this encounter Administered Medications Inactive Administered Medications - up to 3 most recent administrations Medication Order MAR Action Action Date Dose Rate Site lactated ringers infusion New Bag 01/20/2014 8:30 AM EDT 50 mL/hr 50 mL/hr 50 mL/hr, Intravenous, CONTINUOUS, Starting on Thu01/20/14 at 0830, Until Thu01/20/14 at 1022, Endoscopy (Day of Procedure) documented in this encounter Active and Recently Administered Medications Times are shown in EDT. Continuous Medication Order 01/18/2014 01/19/2014 01/20/2014 lactated ringers infusion (CANCELED) 0830 (New Bag - Provider: Kath Bhandari RN) 50 mL/hr, at 50 mL/hr, Intravenous, CONT INUOUS, Starting Thu01/20/14 at 0830, Until Thu01/20/14 at 1022, Endo (Day of Procedure) PRN Medication Order 01/18/2014 01/19/2014 01/20/2014 fentaNYL 50mcg/mL injection (CANCELED) 914 (Given - Provider: Nancy Pompa, LAWRENCE)916 (Given - Provider: Nancy Pompa RN) ONCE PRN, Starting Thu01/20/14 at 0915, Until Thu01/20/14 at 1022, Pain, Intra- Operative (Intra-Procedure), Routine midazolam (PF) (VERSED) 1 mg/mL injection (CANCELED) 914 (Given - Provider: Nancy Pompa RN)916 (Given - Provider: Nancy Pompa RN)919 (Given - Provider: Nancy Pompa RN) ONCE PRN, Starting Thu01/20/14 at 0915, Until Thu01/20/14 at 1022, Sleep, Intra- Operative (Intra-Procedure), Routine documented in this encounter Care Teams Oxygen Plant Operator Relationship Specialty Start Date End Date Sanjuanita Lee MD PCP - General 03/05/13 12/23/21 [address] [place] [address] documented as of this encounter
--- OUTSIDE RECORDS SUMMARY | 2022-02-22 23:39 | XMS_ITS | Encounter Summary ---
:1950 Author Organization [facility] [place] [address] Care Team Providers Name Role Phone Sanjuanita Lee MD Primary Care Provider Encounter Details Date Type Department Care Team Description 01/20/2014 Surgery Gastroenterology at [facility] [place] Corby Cano, UPPER GI [facility] [place] [address] [facility] [phone] DR GASTROENTEROLOGY DEPT. [place], [place] [address] Social History Tobacco Use Types [...] not get better as expected. Thursday[facility]Thursday Clinic [phone] 8a-5p Same Day Endo [phone] 7a-8p Otherwise contact [phone] and ask to speak to the web master community recreation programmer Follow-up care is a burgess part of [...] UPPER GI ENDOSCOPY (01/20/2014 8:41 AM EDT) [facility] Method Time Signature UPPER GI [facility] ENDOSCOPY Endoscopy Patient Name: Charlene Harmon ? Procedure Date: 01/20/2014 8:41 AM ? Date of : 1950 ? Age: 63 ? Order #: [id number] ? Procedure: ? Upper GI endoscopy Indications: [...] [employer] documented in this encounter Visit Diagnoses Diagnosis Cirrhosis of liver Cirrhosis of liver without mention of al cohol documented in this encounter Administered Medications Inactive Administered Medications - up to 3 most recent administrations Medication Order MAR Action Action Date Dose Rate Site fentaNYL 50mcg/mL injection Given 01/20/2014 9:17 AM EDT 50 mcg Right Arm ONCE PRN, Starting on Thu01/20/14 at 0915, Until Thu01/20/14 at 1022, Pain, Intra-Operative (Intra-Procedure), Routine Given 01/20/2014 9:15 AM EDT 50 mcg Right Arm lactated ringers infusion New Bag 01/20/2014 8:30 AM EDT 50 mL/hr 50 mL/hr 50 mL/hr, Intravenous, CONTINUOUS, Starting on Thu01/20/14 at 0830, Until Thu01/20/14 at 1022, Endoscopy (Day of Procedure) midazolam (PF) (VERSED) 1 mg/mL Given 01/20/2014 9:20 AM EDT 0.5 mg Right Arm injection ONCE PRN, Starting on Thu01/20/14 at 0915, Until Thu01/20/14 at 1022, Sleep, Intra-Operative (Intra-Procedure), Routine Given 01/20/2014 9:17 AM EDT 1 mg Right Arm Given 01/20/2014 9:15 AM EDT 1 mg Right Arm documented in this encounter Active and Recently Administered Medications Times are shown in EDT. Continuous Medication Order 01/18/2014 01/19/2014 01/20/2014 lactated ringers infusion (CANCELED) 0830 (New Bag - Provider: Kath Bhandari, RN) 50 mL/hr, at 50 mL/hr, Intravenous, CONT INUOUS, Starting Thu01/20/14 at 0830, Until Thu01/20/14 at 1022, Endo (Day of Procedure) PRN Medication Order 01/18/2014 01/19/2014 01/20/2014 fentaNYL 50mcg/mL injection (CANCELED) 0915 (Given - Provider: Nancy Pompa RN)0917 (Given - Provider: Nancy Pompa RN) ONCE PRN, Starting Thu01/20/14 at 0915, Until Thu01/20/14 at 1022, Pain, Intra- Operative (Intra-Procedure), Routine midazolam (PF) (VERSED) 1 mg/mL injection (CANCELED) 0915 (Given - Provider: Nancy Pompa RN)0917 (Given - Provider: Nancy Pompa, LAWRENCE)0920 (Given - Provider: Nancy Pompa RN) ONCE PRN, Starting Thu01/20/14 at 0915, Until Thu01/20/14 at 1022, Sleep, Intra- Operative (Intra-Procedure), Routine documented in this encounter Care Teams House Steward/Stewardess Relationship Specialty Start Date End Date Sanjuanita Lee MD PCP - General 03/05/13 12/23/21 [address] [place] [address] documented as of this encounter
--- OUTSIDE RECORDS SUMMARY | 2022-02-22 23:39 | XMS_ITS | Encounter Summary ---
:1950 Author Organization [facility] [place] [address] Care Team Providers Name Role Phone Sanjuanita Lee MD Primary Care Provider Reason for Visit Reason Comments Abdominal Pain Encounter Details Date Type Department Care Team Description 03/19/2013 Emergency Emergency Department Magdiel Holder dd, MD Ascites; [facility] Viral h epatitis B [facility] [place] [address] [place] [address] [phone] Social History Tobacco Use Types Packs/Day Years [...] Sign Reading Time Taken Comments Blood Pressure 138/46 03/19/2013 5:50 PM EST Pulse 69 03/19/2013 5:50 PM EST Temperature 36.7 ??C (98.1 ??F) 03/19/2013 1:55 PM EST Respiratory Rate 14 03/19/2013 5:50 PM EST Oxygen Saturation 98% 03/19/2013 5:50 PM EST Inhaled Oxygen Concentration - - Weight - - Height - - Body Mass Index - - documented in this encounter Discharge Instructions Discharge InstructionsMoBetito metcalf MD - 03/19/2013 6:19 PM EST You should rest and stay well hydrated. You should return to the Emergency Department for re??valuation if you are becoming more ill, have fever or chills, have worsening pain or develop any new symptoms or concerns. Continue furosemide and spironolactone Oxycodone 5mg at bedtime for discomfort - this will make you sleepy, no driving or alcohol. documented in this encounter Medications at Time [...] mouth nightly. documented as of this encounter ED Notes Betito Holder MD - 03/19/2013 6:20 PM EST Charlene Harmon is an 62 y.o. who presents to the ED with cc: abdominal distention I saw this patient at 1602. HPI Charlene Harmon presented to the Emergency Department with abd distention and discomfort. The pt was recently dx'd with hep B after developing jaundice and fatigue. She was d/c'd home and generally improving although has had slow progression of LE swelling and abd swelling. She now feels several months pr egnant. Distention is mild to moderately uncomfortable, keeps her from sleeping, is not associated with fevers, chills, confusion, nausea, vomiting, feeling ill. She was prescribed Lasix and spironolactone but has only had one dose. Review of Systems Constitutional: Negative for fever and chills. Respiratory: Negative for shortness of breath. Cardiovascular: Negative for chest pain. Gastrointestinal: Positive for abdominal distention. Negative for nausea, vomiting and abdominal pain. Genitourinary: Negative for dysuria and urgency. Musculoskeletal: Negative for back pain. Skin: Positive for color change. Negative for rash. Neurological: Negative for weakness and numbness. Hematological: Negative for adenopathy. Does not bruise/bleed easily. Psychiatric/Behavioral: Negative for confusion. Physical Exam Nursing note and vitals reviewed. Constitutional: She is oriented to person, place, and time. She appears well- developed and well-nourished. No distress. HENT: Head: Normocephalic and atraumatic. Mouth/Throat: Oropharynx is clear and moist. No oropharyngeal exudate. Eyes: Conjunctivae normal are normal. No scleral icterus. Neck: Normal range of motion. Neck supple. Cardiovascular: Normal rate, regular rhythm and normal heart sounds. Exam reveals no gallop and no friction rub. No murmur heard. Pulmonary/Chest: Effort normal and breath sounds normal. No respiratory distress. She has no wheezes. Abdominal: Soft. Bowel sounds are normal. She exhibits distension. There is no tenderness. There is no rebound and no guarding. Musculoskeletal: Normal range of motion. She exhibits edema. She exhibits no tenderness. Neurological: She is alert and oriented to person, place, and time. Coordination normal. Skin: Skin is warm and dry. No rash noted. She is not diaphoretic. No erythema. Psychiatric: She has a normal mood and affect. Her behavior is normal. Thought content normal. Assessment and Plan Clinical Impression: Abdominal distention and lower extremity swelling in the setting of hepatic insufficiency secondary to hepatitis. Liver function tests are improving. Plan: Continue Lasix and spironolactone. Small dose of oxycodone for comfort tonight to assist with sleep. No paracentesis at this time given that she has no associated shortness of breath and has onlyhad one day of diuretics. ED Course I reviewed the patient's labwork: No leukocytosis, protein and albumin are decreased but are improving compared to previous. Transaminases are elevated to 235/207, but these are improvement over previous. Betito Holder MD 03/21/13 0658 Tamela Celis RN - 03/19/2013 4:10 PM EST ED MD emery now. documented in this encounter Miscellaneous Notes Discharge Summary - Provider, Scanning - 03/21/2013 9:57 AM EST Miscellaneous - Provider, Scanning - 03/19/2013 2:48 PM EST ED Triage - Haroldo Gunderson RN - 03/19/2013 1:56 PM EST Pt comes in with abdominal pain. She has had the pain since 03/15/2013. She had an increase in pain this morning and had nausea and vomiting today. She has had inflammation in her liver since 02/24/2013. Skin color sallow warm and dry. Pt is awake, alert and oriented x 3. documented in this encounter Plan of Treatment Scheduled Procedures Name Priority Associated Diagnoses Date/Time EGD, UPPER GI ENDOSCOPY Gastroesophageal reflux disease, esophagitis presence not specifi ed documented as of this encounter Procedures Procedure Name Priority Date/Time Associated Comments Diagnosis RED TUBE HOLD STAT 03/19/2013 4:00 PM Results for this EST procedure are i n the results section. SCAN, PERIPHERAL STAT 03/19/2013 4:00 PM Resul ts for this BLOOD EST procedure are i n the results section. DIFFERENTIAL, STAT 03/19/2013 4:00 PM Results for this AUTOMATED EST procedure are i n the results section. GOLD TUBE HOLD STAT 03/19/2013 4:00 PM Results for this EST procedure are i n the results section. BLUE TUBE HOLD STAT 03/19/2013 4:00 PM Results for this EST procedure are i n the results section. CREATININE STAT 03/19/2013 4:00 PM Results f or this EST procedure are i n the results section. CBC (WITH DIFF) STAT 03/19/2013 4:00 PM Result s for this EST procedure are i n the results section. BUN STAT 03/19/2013 4:00 PM Results f or this EST procedure are i n the results section. GLUCOSE, RANDOM STAT 03/19/2013 4:00 PM Result s for this EST procedure are i n the results section. HEPATIC FUNCTION STAT 03/19/2013 4:00 PM Resul ts for this PANEL EST procedure are i n the results section. ELECTROLYTES PANEL STAT 03/19/2013 4:00 PM Res ults for this EST procedure are i n the results section. URINALYSIS WITH STAT 03/19/2013 3:44 PM Result s for this REFLEX CULTURE EST procedure are in the results section. documented in this encounter Results (ABNORMAL) Differential, Automated (03/19/2013 4:00 PM EST) [facility] Method Time Signature Neutrophils % 55.2 34.0 - CERNER 71.0 % MILLENNIUM Neutr Abs (ANC) 4.58 1.50 - CERNER 6.30 MILLENNIUM x10(3)/mc L Lymphocytes % 24.8 19.0 - CERNER 53.0 % MILLENNIUM Lymphocytes Abs 2.1 1.0 - 3.6 CERNER x10(3)/mc MILLENNIUM L Monocytes % 16.1 (H) 4.0 - CERNER 13.0 % MILLENNIUM Monocyte Abs 1.3 (H) 0.2 - 1.0 CERNER x10(3)/mc MILLENNIUM L Eosinophils % 2.3 0.0 - 7.0 CERNER % MILLENNIUM Eosinophils Abs 0.2 0.0 - 0.5 CERNER x10(3)/mc MILLENNIUM L Basophils % 1.0 0.0 - 2.0 CERNER % MILLENNIUM Basophils Abs 0.1 0.0 - 0.2 CERNER x10(3)/mc MILLENNIUM L Immature Gran % 0.60 0.00 - CERNER 0.66 % MILLENNIUM Comment: Immature granulocytes(IG's)percentage an d absolute count will include metamyelocytes, myelocytes, and promyelo cytes. Blood smears from CBCs yielding IG's will be scanned manually for concor dance. If this scan disagrees with the automated IG or if promyelocytes are not ed, a manual differential will be performed. Blanca Gran Abs 0.05 0.00 - 0.05 x10(3)/mcL CER NER MILLENNIUM Specimen Anatomical Collection Method Collection Time Receive d Time (Source) Location / / Volume Laterality Blood specimen 03/19/2013 4:00 PM 013 4:16 (specimen) EST PM EST Betito Holder MD HEMATOLOGY ORDERABLES Performing Organization Address City/State/[place] [address] CERNER MILLENNIUM Scan, Peripheral Blood (03/19/2013 4:00 PM EST) [facility] gist Method Time Signature Plat Estimate Decreased CERNER MILLENNIUM RBC Morphology Abnormal CERNER MILLENNIUM Target Cells 6-10 /HPF CERNER MILLENNIUM Giant Less than 1 /HPF CERNER Platelets MILLENNIUM Specimen Anatomical Collection Method Collection Time Receive d Time (Source) Location / / Volume Laterality Blood specimen 03/19/2013 4:00 PM 013 4:16 (specimen) EST PM EST Resulting Agency Comment Spec In Lab Betito Holder MD HEMATOLOGY ORDERABLES Performing Organization Address City/State/[place] [address] [facility] MILLENNIUM Red Hold (03/19/2013 4:00 PM EST) athologist Signature Red Hold Sample in [facility] Spec[facility] Anatomical Collection Method Collection Time Receive d Time (Source) Location / / Volume Laterality Blood specimen 03/19/2013 4:00 PM 013 4:16 (specimen) EST PM EST Betito Holder MD CHEMISTRY ORDERABLES Performing Organization Address City/State/[place] [address] [facility] MILLENNIUM Gold Tube HOLD (03/19/2013 4:00 PM EST) athologist Signature Gold Hold Sample in [facility] Specimen Anatomical Collection Method Collection Time Receive d Time (Source) Location / / Volume Laterality Blood specimen 03/19/2013 4:00 PM 013 4:16 (specimen) EST PM EST Betito Holder MD CHEMISTRY ORDERABLES Performing Organization Address City/State/[place] [address] [facility] MILLENNIUM Blue Tube HOLD (03/19/2013 4:00 PM EST) athologist Signature Blue Hold Sample in [facility]. [facility] Specimen Anatomical Collection Method Collection Time Receive d Time (Source) Location / / Volume Laterality Blood specimen 03/19/2013 4:00 PM 013 4:16 (specimen) EST PM EST Betito Holder MD HEMATOLOGY ORDERABLES Performing Organization Address City/State/[place] [address] [facility] MILLENNIUM (ABNORMAL) Hepatic Function Panel (03/19/2013 4:00 PM EST) [facility] Total Protein 5.3 (L) 6.4 - 8.3 [facility] gm/dL [facility] Albumin 2.6 (L) 3.2 - 5.2 CERNER gm/dL MILLENNIUM AST 235 (H) 0 - 30 CERNER unit/L MILLENNIUM ALT 207 (H) 0 - 30 CERNER unit/L MILLENNIUM Alk Phos 148 (H) 40 - 104 CERNER unit/L MILLENNIUM Total 15.6 (H) 0.2 - 1.3 CERNER Bilirubin mg/dL MILLENNIUM Bili, Direct >10.0 0.0 - 0.3 CERNER mg/dL MILLENNIUM Specimen Anatomical Collection Method Collection Time Receive d Time (Source) Location / / Volume Laterality Blood specimen 03/19/2013 4:00 PM 013 4:16 (specimen) EST PM EST Resulting Agency Comment Spec In Lab Betito Holder MD CHEMISTRY ORDERABLES Performing Organization Address City/[facility]/ZIP Code Phon e Number [address] CERNER MILLENNIUM Glucose, random (03/19/2013 4:00 PM EST) athologist Signature Glucose Lvl 99 60 - 199 CERNER mg/dL MILLENNIUM Comment: Diabetes: >=200 mg/dL plus symp toms Specimen Anatomical Collection Method Collection Time Receive d Time (Source) Location / / Volume Laterality Blood specimen 03/19/2013 4:00 PM 013 4:16 (specimen) EST PM EST Resulting Agency Comment Spec In Lab Betito Holder MD CHEMISTRY ORDERABLES Performing Organization Address City/[facility]/ZIP [facility] Phon e Number [address] CERNER MILLENNIUM (ABNORMAL) Creatinine (03/19/2013 4:00 PM EST) athologist Signature Creatinine 1.08 0.70 - 1.20 CERNER mg/dL MILLENNIUM Comment: Result rechecked. ran a manual x2 dilution to rule out loren irubin MTF Please note that the pediatric reference intervals supplied above were not validated at [facility] Results from pediatri c patients should be interpreted in conjunction to the patient's age, height and muscle mass. Estimated GFR 51 (L) >=60 CERNER MILLENNIU [...] the following links into your internet browser. http://www.nkdep.nih.gov/lab-evaluation. shtml http://www.kidney.org/professionals/ Specimen Anatomical Collection Method Collection Time Receive d Time (Source) Location / / Volume Laterality Blood specimen 03/19/2013 4:00 PM 013 4:16 (specimen) EST PM EST Resulting Agency Comment Spec In Lab Betito Holder MD CHEMISTRY ORDERABLES Performing Organization Address City/[facility] Phon e Number [address] CERNER MILLENNIUM (ABNORMAL) BUN (03/19/2013 4:00 PM EST) P athologist Signature BUN 20 (H) 8 - 18 CERNER mg/dL MILLENNIUM Specimen Anatomical Collection Method Collection Time Receive d Time (Source) Location / / Volume Laterality Blood specimen 03/19/2013 4:00 PM 013 4:16 (specimen) EST PM EST Resulting Agency Comment Spec In Lab Betito Holder MD CHEMISTRY ORDERABLES Performing Organization Address [facility] [place] [address] CERNER MILLENNIUM (ABNORMAL) Electrolytes panel (03/19/2013 4:00 PM EST) P athologist Signature Sodium 135 135 - 145 CERNER mmol/L MILLENNIUM Potassium 3.7 3.5 - 5.0 CERNER mmol/L MILLENNIUM Comment: Please note: ??Patients with WBC >100,00 0 may have falsely elevated Potassium levels. ??For accurate Potassium quantif ication in these patients send serum separator tube (gold top) for subsequent determinations. ??Contact the Clinical Chemistry Laboratory if there are any qu estions. Chloride 101 98 - 107 mmol/L CERNER MILLENN IUM CO2 21 (L) 22 - 31 mmol/L CERNER MILLENNI UM Anion Gap 13 5 - 15 mmol/L CERNER MILLENNIU M Specimen Anatomical Collection Method Collection Time Receive d Time (Source) Location / / Volume Laterality Blood specimen 03/19/2013 4:00 PM 013 4:16 (specimen) EST PM EST Resulting Agency Comment Spec In Lab Betito Holder MD CHEMISTRY ORDERABLES Performing Organization Address City/[facility]/ZIP Code Phon e Number [address] CERNER MILLENNIUM (ABNORMAL) CBC (with Diff) (03/19/2013 4:00 PM EST) [facility] Method Time Signature WBC 8.3 4.0 - 10.0 CERNER x10(3)/mcL MILLENNIUM RBC 4.38 3.93 - CERNER 5.22 MILLENNIUM x10(6)/mcL Hemoglobin 14.3 11.2 - CERNER 15.7 gm/dL MILLENNIUM Hematocrit 37.8 34.0 - CERNER 45.0 % MILLENNIUM MCV 86.3 79.0 - CERNER 94.0 fL MILLENNIUM MCH 32.6 (H) 26.6 - CERNER 32.2 pg MILLENNIUM MCHC 37.8 (H) 32.0 - CERNER 36.5 gm/dL MILLENNIUM Platelets 96 (L) 145 - 370 CERNER x10(3)/mcL MILLENNIUM RDWSD 69.8 (H) 35.0 - CERNER 46.0 fL MILLENNIUM RDWCV 22.5 (H) 10.9 - CERNER 14.4 % MILLENNIUM MPV Not Measured 9.0 - 12.0 CERNER fL MILLENNIUM Specimen Anatomical Collection Method Collection Time Receive d Time (Source) Location / / Volume Laterality Blood specimen 03/19/2013 4:00 PM 013 4:16 (specimen) EST PM EST Resulting Agency Comment Spec In Lab Betito Holder MD HEMATOLOGY ORDERABLES Performing Organization Address City/[facility]/ZIP Code Phon e Number [address] [facility] MILLENNIUM (ABNORMAL) Urinalysis with microscopic (03/19/2013 3:44 PM EST) [facility] Method Time Signature Glucose UA Negative Negative CERNER mg/dL MILLENNIUM Protein UA Trace (A) Neg mg/dL CERNER MILLENNIUM Bilirubin UA Moderate (A) Negative CERNER mg/dL MILLENNIUM Comment: Clinical correlation required for positi ve Urine Bilirubin results as false positive may occur with some drugs and d rug related products. If a false positive is suspected a serum total bili blandon should be considered if clinically indicated. Urobilinogen UA 2.0 (A) Normal mg/dL CERNER MILL ENNIUM pH UA 6.0 5.0 - 8.0 CERNER MILLENNIUM Blood UA Negative mg/dL CERNER MILLENNIUM Ketones UA Negative mg/dL CERNER MILLENNIUM Nitrite UA Negative CERNER MILLENNIUM Leukocytes UA Trace (A) Neg CERNER MILLENNIU M Appearance UA Cloudy (A) Clear CERNER MILLENNI UM Spec Maljamar UA 1.011 1.002 - 1.030 [facility] MIL LENNIUM Color UA Dark Yellow Yellow CERNER MILLENNIUM RBC UA Not Present 0 - 4 CERNER MILLENNIUM WBC UA 5 0 - 5 /HPF CERNER MILLENNIUM Bacteria UA Moderate /HPF CERNER MILLENNIUM Squam Epith UA 16 (H) <=4 /HPF CERNER MILLENNI UM Hyaline Cast UA 19 (H) 0 - 2 /LPF CERNER BECKY NIUM Gran Cast UA 13 (H) <=0 /LPF CERNER MILLENNIUM Amorph Hannah UA Occasional /HPF CERNER MILLENN IUM Specimen Anatomical Collection Method Collection Time Receive d Time (Source) Location / / Volume Laterality Urine specimen 03/19/2013 3:44 PM 013 4:17 (specimen) EST PM EST Resulting Agency Comment Spec In Lab Betito Holder MD URINE ORDERABLES Performing Organization Address City/State/ZIP Code Phon e Number [place] [phone] [facility] documented in this encounter Visit Diagnoses Diagnosis Ascites Other ascites Viral hepatitis B acute Viral hepatitis B without mention of hep atic coma, acute or unspecified, without mention of hepatitis delta documented in this encounter Administered Medications Inactive Administered Medications - up to 3 most recent administrations Medication Order MAR Action Action Date Dose Rate Site OXYcodone (ROXICODONE) immediate Given 03/19/2013 6:32 PM EST 10 mg release tablet 10 mg 10 mg, Oral, ONCE, 1 dose, On 03/19/13 at 1845, Take one tablet at bedtime., STAT documented in this encounter Active and Recently Administered Medications Times are shown in EST. Scheduled Medication Order 03/17/2013 03/18/2013 03/19/2013 OXYcodone (ROXICODONE) immediate release tablet 10 mg (COMPLETED ) 1832 (Given - Provider: Rosalia Serrano RN - Comment: dispensed for home use) 10 mg, Oral, ONCE, 1 dose, 03/19/13 at 1845, Take one tablet at bedtime., STAT documented in this encounter Care Teams Spreader Operator Automatic Relationship Specialty Start Date End Date Sanjuanita Lee MD PCP - General 03/05/13 12/23/[address] [place] [address] documented as of this encounter
--- OUTSIDE RECORDS SUMMARY | 2022-02-22 23:39 | XMS_ITS | Encounter Summary ---
:1950 Author Organization [facility] [place] [address] Care Team Providers Name Role Phone Sanjuanita Lee MD Primary Care Provider Reason for Visit Reason Comments Follow-up Encounter Details Date Type Department Care Team Description 04/07/2014 Follow-Up Gastroenterology at [facility] Nuha Rico, Cirrhosis of liver [facility] [place] [address] [facility] [phone] GASTROENTEROLOGY DEPT. [place], [place] [address] Social History Tobacco Use Types [...] Sign Reading Time Taken Comments Blood Pressure 151/62 04/07/2014 9:11 AM EST Pulse 68 04/07/2014 9:11 AM EST Temperature - - Respiratory Rate - - Oxygen Saturation - - Inhaled Oxygen Concentration - - Weight 50 kg (110 lb 3.2 oz) 04/07/2014 9:11 AM EST Height 152.4 cm (5') 04/07/2014 9:11 AM EST Body Mass Index 21.52 04/07/2014 9:11 AM EST documented in this encounter Progress Notes Nuha Rico APRN - 04/07/2014 9:27 AM EST Subjective: Patient ID: Charlene Harmon is a 63 y.o. female. GI PROBLEM LIST: 1. Acute hepatitis B, presented with jaundice, fatigue, nausea and vomiting AST 1200 ALT 1300 Tbili 20 ALb 2.4 INR 1.8 HBV DNA pending HBEag HBEab Lamivudine 100 mg initiated 03.04.2013 d/c 07/15/2013 Tenofovir 300 mg started 07/16/2103 2. Cirrhosis 3. Health Maintenance: Hepatitis A vaccine: 1st dose 04/07/14 Hepatitis B vaccine: infected Colonoscopy: OUTSIDE STUDIES: 02/26/2013 02/28/13 03/03/13 03/05/13 03/07/13 03/10/13 03/30/13 05/09/13 07/07/13 03/31/14 ast 1066 1092 1285 835 775 666 62 38 30 23 alt 1328 1363 1307 827 745 679 48 27 21 26 tbili 13.13 16.3 19.9 16.7 16.3 15.5 7.6 1.8 0.95 0.38 inr 1.8 1.8 1.8 2 1.8 1.7 1.3 tprot 5.3 6.5 alb 2.4 3.4 ap 190 121 plt 112 190 Hep BcIGM pos Hep Bsag pos Hep cab neg HBV DNA 1,1247,748 2440 P 03/03/2013 abd ultrasound Mild gallbladder distension without evidence of cholelithiasis or gallbladder wall thickening 02/26/[address] Moderate intrahepatic biliary dilatation and probable extra hepatic biliary dilatation as well. Gallbladder is distended. The gallbladder wall appears mildly thickened. Finding inconclusive for cholelithiasis 03.03.2013 ASMA <20, KAYLEE neg, IgG 1260, IgM 516, IgA 320 Interim History: Ms. Harmon returns today for follow up and is doing well. She continues to tolerate her medication well. We discussed her disease and the risk of stopping treatment, serological markers are pending, but may be risky to stop due to underlying cirrhosis. Review of Systems Constitutional: Negative for fatigue. Respiratory: Negative for cough. Cardiovascular: Negative for chest pain. Gastrointestinal: Negative for nausea, vomiting, abdominal pain and diarrhea. Skin: Negative for rash. Objective: Physical Exam Constitutional: She appears well-developed and well-nourished. Head: Normocephalic and atraumatic. Eyes: Pupils are [...] on the tenofovir 300 mg a day. Serologies are pending. 2. Jaundice has resolved. 3. Edema, has been weaned of aldactone and continues on low dose lasix, may be able to stop this in the near future. 4. Health maintenance, starting Hepatitis A vaccine series today. 5. Fibrosis stage, the results of today's fibroscan suggest cirrhosis, she will get an ultrasound locally, EGD was negative. She will follow up in 6 months with an abdominal ultrasound prior. I will see her back in 6 months. documented in this encounter Plan of Treatment Scheduled Procedures Name Priority Associated Diagnoses Date/Time EGD, UPPER GI ENDOSCOPY Gastroesophageal reflux disease, esophagitis presence not specifi ed documented as of this encounter Results US abdomen complete (11/24/2014 10:07 AM EDT) Anatomical Region Laterality Modality Abdomen, Vascular Ultrasound Specimen (Source) Anatomical Collection Method Collection Time Re ceived Time Location / / Volume Laterality 11/24/2014 10:07 AM EDT Narrative 11/24/2014 12:42 PM EDT Abdominal ?(Signed Final 11/24/2014 12:41 ? pm) Patient Info ID #: ? [id number] ?: [birth year] (64 yrs) Name: ? CHARLENE AWADD ?Visit Date: 11/24/2014 10:01 am Performed By Performed By: ?Alanna Moore RDMS Attending: ? Jayda RODRIGES, Candy Sneed Referred By: ? KETAN SETH MD Service(s) Provided ??[facility] - Abdominal Complete Survey - [phone] ? [phone] Indications ??cirrhosis Comparison Abdominal ultrasound 04/18/2014 from ?? [facility]. ----- Liver ----- Right Lobe Length: ?? [...] abdominal aortic aneurysm on prior ? 11/02/09 [facility] CTA aorta is not adequately ? evaluated [...] 12:4 1 pm) Patient Info ID #: [id number] : [birth year] (64 y rs) Name: CHARLENE HARMON Visit Date: 5 10:01 am Performed By Performed By: Alanna Moore RDMS Attending: Candy Montelongo MD Referred By: KETAN SETH MD Service(s) Provided [facility] - Abdominal Complete Survey - [phone] Indications cirrhosis Comparison Abdominal ultrasound 04/18/2014 from [facility]. ----- Liver ----- Right Lobe Length: [...] infrarenal abdominal aortic aneurysm on prior 11/02/09 [facility] CTA aorta is not adequately evaluated on [...] Report 11/24 12:41 pm Ketan Seth MD IM US GEN ORDERABLES documented in this encounter Visit Diagnoses Diagnosis Cirrhosis of liver Cirrhosis of liver without mention of al cohol Cirrhosis of liver Cirrhosis of liver without mention of al cohol documented in this encounter Care Teams Cloth Printer Relationship Specialty Start Date End Date Sanjuanita Lee MD PCP - General 03/05/13 12/23/[address] [place] [address] documented as of this encounter
--- OUTSIDE RECORDS SUMMARY | 2022-02-22 23:39 | XMS_ITS | Encounter Summary ---
:1950 Author Organization [facility] [place] [address] Care Team Providers Name Role Phone Sanjuanita Lee MD Primary Care Provider Reason for Visit Reason Onset Date Comments Abnormal Lab 03/10/2013 Encounter Details Date Type Department Care Team Description 03/10/2013 Telephone [place] [facility] [place]ola [place]ino[place] [address] Social History Tobacco Use Types Packs/Day [...] encounter Miscellaneous Notes Telephone Encounter - Lola Pino RN - 03/10/2013 1:30 PM EST Haley calls to report the following: ALT 162 AST 679 T. Bili 15.6 D. Bili 12.5 These are improved from prior. Will update K. Ray-CERTIFIED PERSONAL FINANCE COUNSELOR. documented in this encounter Plan of Treatment Scheduled Procedures Name Priority Associated Diagnoses Date/Time EGD, UPPER GI ENDOSCOPY Gastroesophageal reflux disease, esophagitis presence not specifi ed documented as of this encounter Visit Diagnoses Not on filedocumented in this encounter Care Teams Emergency Service Worker Relationship Specialty Start Date End Date Sanjuanita Lee MD PCP - General 03/05/13 12/23/[address] [place] [address] documented as of this encounter
--- OUTSIDE RECORDS SUMMARY | 2022-02-22 23:39 | XMS_ITS | Encounter Summary ---
:1950 Author Organization [facility] [place] [address] Care Team Providers Name Role Phone Sanjuanita Lee MD Primary Care Provider Encounter Details Date Type Department Care Team Description 02/02/2018 Orders Only Cardiology at [facility] [place] aHo Byrd Hypertension, [facility] P, [place] [id number] Social History Tobacco Use Types Packs/Day Years [...] Department: Vascular Surgery Lab VASCUBASE Report Patient: [id number] (CHARLENE HARMON) CPT: 07833 ICD10: I10 Referring Physician: KYA CAUSEY MD [...] type documented in this encounter Care Teams Journeyman Pipe Welder Relationship Specialty Start Date End Date Sanjuanita Lee MD PCP - General 03/05/13 12/23/21 [address] [facility] [place] [address] documented as of this encounter
--- OUTSIDE RECORDS SUMMARY | 2022-02-22 23:39 | XMS_ITS | Encounter Summary ---
:1950 Author Organization [facility] [place] [address] Care Team Providers Name Role Phone Sanjuanita Lee MD Primary Care Provider Encounter Details Date Type Department Care Team Description 05/23/2015 Hospital Encounter Radiology Library at [facility], [place] [address] Social History Tobacco Use Types Packs/Day [...] Associated Comments Diagnosis FILM LIBRARY STORAGE Routine 05/23/2015 12:00 AM Pain Results for this ONLY ULTRASOUND EST procedure ar lyn in STUDY the results section. documented in this encounter Results Film Library- Storage only Ultrasound Study (05/23/2015 12:00 AM EST) Specimen (Source) Anatomical Location Collection Method / Collectio n Time Received Time / Laterality Volume Narrative BJ - 05/23/2015 3:38 PM EST See PACS for result report. [facility] IMAmanda FILM LIBRARY ORDERABLES Performing Organization Address City/State/ZIP Code Phon e Number [place], [place] documented in this encounter Visit Diagnoses Diagnosis Pain Generalized pain documented in this encounter Care Teams Bench Press Operator Relationship Specialty Start Date End Date Sanjuanita Lee MD PCP - General 03/05/13 12/23/[address] [place] [address] documented as of this encounter
--- OUTSIDE RECORDS SUMMARY | 2022-02-22 23:39 | XMS_ITS | Encounter Summary ---
:1950 Author Organization [facility] Address [facility] [place] [address] Care Team Providers Name Role Phone Sanjuanita Lee MD Primary Care Provider Encounter Details Date Type Department Care Team Description 05/12/2013 Telephone Gastroenterology at [facility] [place] Nuha Rico APRN [facility] [place] [address] GASTROENTEROLOGY [phone] DEPT. [place], [place] [address] Social History Tobacco Use Types [...] Telephone Encounter - Nuha Rico APRN - 05/12/2013 10:08 AM EST Spoke with charlene's , she has gone back to work and doing well with this Jaundice has resolved Weight was stable but then she developed fluid retention in her ankles and this is being managed by her PCP documented in this encounter Plan of Treatment Scheduled Procedures Name Priority Associated Diagnoses Date/Time EGD, UPPER GI ENDOSCOPY Gastroesophageal reflux disease, esophagitis presence not specifi ed documented as of this encounter Visit Diagnoses Not on filedocumented in this encounter Care Teams Cyber Instructor Relationship Specialty Start Date End Date Sanjuanita Lee MD PCP - General 03/05/13 12/23/[address] [place] [address] documented as of this encounter
--- OUTSIDE RECORDS SUMMARY | 2022-02-22 23:39 | XMS_ITS | Encounter Summary ---
:1950 Author Organization [place] [address] Care Team Providers Name Role Phone Sanjuanita Lee MD Primary Care Provider Reason for Visit Reason Comments Follow-up Encounter Details Date Type Department Care Team Description 08/14/2016 Office Visit Gastroenterology at [facility] Nakul Watt, Viral hepatitis B [facility] [place] [address] [facility] [phone] [place] [address] Social History Tobacco Use Types Packs/Day Years [...] Sign Reading Time Taken Comments Blood Pressure 136/60 08/14/2016 8:27 AM EDT Pulse 66 08/14/2016 8:27 AM EDT Temperature - - Respiratory Rate - - Oxygen Saturation - - Inhaled Oxygen Concentration - - Weight 50.8 kg (112 lb 1.6 oz) 08/14/2016 8:27 AM EDT Height - - Body Mass Index 21.53 02/07/2016 8:29 AM EDT documented in this encounter Patient Instructions Patient InstructionsNakul Watt - 08/14/2016 8:30 AM EDT 1. Check labs today 2. F/u abdominal ultrasound 3. Irbnuf-ahgtxqvwss-hboyh starches 4. Benefiber 20-25gm daily 5. Colace 100mg daily 6. Kegel 10 reps, 3 times daily 7. Consider squatty potty or analog device to facilitate daily bowel movements 8. Avoid straining with bowel movements 9. F/u with your PCP, make sure you are uptodate on your colonoscopy 10. RTC in 12 months documented in this encounter Progress Notes Nakul Watt - 08/14/2016 8:30 AM EDT [facility] Department of Gastroenterology Outpatient Clinic Note GI Problem List: Resolved Hepatitis B -Presented with jaundice, fatigue, nausea and vomiting -AST 1200 ALT 1300 Tbili 20 ALb 2.4 INR 1.8 ?? -Lamivudine 100 mg initiated 03.04.2013 d/c 07/15/2013 [...] every week -Regular BMs until hysterectomy in ?? Interval Events: Pt feels ok denies edema/ascites/GIB/confusion. Pt notes alternating bowel habits with 1 week regular formed daily BM, then 1 week with four small pellet like BMs daily. Pt notes straining with every BM denies GIB, weight loss. Pt diet includes fruit/vegetables/copious fluids. Medications: Current Outpatient Prescriptions on File Prior to Visit Medication Sig Dispense Refill ??? calcium carbonate (TUMS) 200 mg calcium (500 mg) Tablet, Chewable Take 1 tablet by mouth daily. 1000 mg ??? CALCIUM CARBONATE (CALCIUM 600 ORAL) Take by mouth. ??? tenofovir (VIREAD) 300 mg Tablet Take 1 tablet by mouth daily. 90 tablet 2 ??? Cholecalciferol, Vitamin D3, (VITAMIN D-3) 2,000 [...] Temperature Temp: -- Heart Rate Heart Rate: 66 Heart Rate: -- Blood Pressure BP: 136/60 BP: -- Respiratory Rate Resp: -- SpO2 SpO2: -- Wt Readings from Last 3 Encounters: 08/14/16 50.8 kg (112 lb 1.6 oz) 02/07/16 52.6 kg (116 lb) 05/18/15 49 kg (108 lb) Body mass index is 21.53 kg/(m^2). Exam: Gen: AAOX3, NAD, cooperative HEENT: EOMI, Anicteric sclera, MMM CV: RRR, S1, S2, no murmurs, rub, click or lance appreciated Resp: CTAB, no rales, wheezing, rhonchi, normal respiratory effort Abd: Soft, NT, ND, NABS, No HSM appreciated Back: No CVA tenderness noted EXT: No pedal edema Skin: No rashes, sores or ulcers Neuro: Grossly nonfocal Labs: Recent Labs 08/14/16 0958 WBC 7.6 HGB 14.8 HCT 43.0 PLATELET 209 NEUTROABS 4.29 Recent Labs 08/14/16 0958 NA 141 K 4.7 CL 102 CO2 27 BUN 23* CREATININE 1.41* Recent Labs 08/14/16 0958 CALCIUM 9.6 Recent Labs 08/14/16 0958 AST 14 ALT 9 ALKPHOS 63 BILITOT 0.4 BILIDIR 0.1 Recent Labs 08/14/16 0958 INR 1.0 PT 13.6 PTT 30 Hep B S Ag: Negative Hep B S Ab: Negative Hep B Core Total: Positive Imaging: Abd US 07/2016: Coarse texture of the liver, mild hepatomegaly, cholelithiasis, 3.5cm AAA ASSESSMENT/PLAN: 65 year old female with chronic hepatitis B treated with lamivudine, transitioned to tenofovir, withseroconversion now off antivirals presents to GI clinic for follow-up. Repeat labs note normal ALT, no loss of Hep B S Ab (previously positive and indeterminate). Recent US noted mild hepatomegaly, prio r fibroscan noted F2 fibrosis. Plan to f/u HBV DNA, RTC in 12 months. From constipation standpoint, suspect pelvic floor dysfunction. Plan to continue diet optimization, with fiber supplementation. Given reported hard stools plan for concomitant stool softeners. Reiterated kegel exercises (pt noncomplaint), further recommend squatty potty or analog device to facilitate defecation, while avoid straining. Of note, pt states having colonoscopy within past 10 years, which she states was normal. Advised pt to f/u with PCP to confirm she is UTD on colonoscopy screening. ?? Recommendations: -Ayqskt-ywcdknehxi-ilgzm starches -Benefiber 20-25gm daily -Colace 100mg daily -Kegel 10 reps, 3 times daily -Consider squatty potty or analog device to facilitate daily bowel movements -Avoid straining with bowel movements -F/u with your PCP, make sure you are uptodate on your colonoscopy -RTC in 12 months Electronically signed by: Nakul Watt Gastroenterology Fellow [facility] Pager [phone] 08/15/2016 Luis Morgan MD - 08/14/2016 8:30 AM EDT Reviewed with Dr. Watt. documented in this encounter Plan of Treatment Scheduled Procedures Name Priority Associated Diagnoses Date/Time EGD, UPPER GI ENDOSCOPY Gastroesophageal reflux disease, esophagitis presence not specifi ed documented as of this encounter Procedures Procedure Name Priority Date/Time Associated Comments Diagnosis HBV QUANT Routine 08/14/2016 9:58 AM Viral hepatitis B Resu lts for this EDT acute procedure are i n the results section. HEPATITIS B DNA, Routine 08/14/2016 9:58 AM Viral hepatitis B QUANTITATIVE, PCR EDT acute HEMOGRAM Routine 08/14/2016 9:58 AM Viral hepatitis B Resu lts for this EDT acute procedure are i n the results section. DIFFERENTIAL, Routine 08/14/2016 9:58 AM Viral hepatitis B Res ults for this AUTOMATED EDT acute procedure are i n the results section. HEPATITIS B CORE Routine 08/14/2016 9:58 AM Resul ts for this ANTIBODY, TOTAL EDT procedure ar e in the results section. HEPATITIS B SURFACE Routine 08/14/2016 9:58 AM Viral hepatitis B Results for this ANTIBODY EDT acute procedure are i n the results section. HEPATITIS B SURFACE Routine 08/14/2016 9:58 AM Viral hepatitis B Results for this ANTIGEN EDT acute procedure are i n the results section. APTT Routine 08/14/2016 9:58 AM Viral hepatitis B Resu lts for this EDT acute procedure are i n the results section. PROTHROMBIN TIME Routine 08/14/2016 9:58 AM Viral hepatitis B Results for this EDT acute procedure are i n the results section. CBC (WITH DIFF) Routine 08/14/2016 9:58 AM Viral hepatitis B EDT acute COMPREHENSIVE Routine 08/14/2016 9:58 AM Viral hepatitis B Res ults for this METABOLIC PANEL EDT acute procedure ar e in (NON-FASTING) the results section. documented in this encounter Results (ABNORMAL) Hepatitis B Core Antibody, Total (08/14/2016 9:58 AM EDT) [employer] Method Time Signature Hep B Core Ab Positive (A) Negative [facility] Specimen Anatomical Collection Method Collection Time Receive d Time (Source) Location / / Volume Laterality Blood specimen Venous Draw / 08/14/2016 9:58 AM 2016 (specimen) Unknown EDT 10:53 AM EDT Resulting Agency Comment Spec In Lab Luis Morgan MD CHEMISTRY ORDERABLES Performing Organization Address City/[facility] [place] [address] HBV Quant (08/14/2016 9:58 AM EDT) [employer] Method Time Signature Hepatitis B Result: <20 IU/mL (Target Not Detected) ZAKIA HUGGINS VICENTEENEIDA garcia, Indication for Study: Hepatitis B Infection [facility] Sample: plasma LABORATORY Method: YESI?? AmpliPrep/YESI?? TaqMan?? HBV Test, v2.0 ([employer]) Linear Range: 20 IU/mL - 170,000,000 IU/mL (1.30-8.23 log IU /mL) This assay is performed in [facility] [employer] ([facility]) Laboratory at [facility]. Specimen Anatomical Collection Method Collection Time Receive d Time (Source) Location / / Volume Laterality Blood specimen 08/14/2016 9:58 AM 017 (specimen) EDT 12:08 PM EDT Resulting Agency Comment Spec In Lab Luis Morgan MD CHEMISTRY ORDERABLES Performing Organization Address City/[facility] [place] [address] (ABNORMAL) Differential, Automated (08/14/2016 9:58 AM EDT) [employer] Method Time Signature Neutrophils % 56.6 % [facility] Neutr Abs (ANC) 4.29 1.70 - [facility] 6.10 [facility] x10(3)/[facility] LABORATORY Lymphocytes % 25.7 % [facility] Lymphocytes Abs 2.0 0.9 - 3.2 [facility] x10(3)/[facility] LABORATORY Monocytes % 9.2 % [facility] Monocyte Abs 0.7 0.3 - 0.9 [facility] x10(3)/[facility] LABORATORY Eosinophils % 7.4 % [facility] Eosinophils Abs 0.6 (H) 0.0 - 0.4 [facility] x10(3)/[facility] LABORATORY Basophils % 0.7 % [facility] Basophils Abs 0.0 0.0 - 0.1 [facility] x10(3)/[facility] LABORATORY Immature Gran % 0.40 % NORTH [...] Blanca Gran Abs 0.03 0.00 - 0.04 x10(3)/[facility] MAR Y [facility]3] LABORATORY Specimen Anatomical Collection Method Collection Time Receive d Time (Source) Location / / Volume Laterality Blood specimen 08/14/2016 9:58 AM 017 (specimen) EDT 10:07 AM EDT Resulting Agency Comment Spec In Lab Luis Morgan MD HEMATOLOGY ORDERABLES Performing Organization Address City/State/[place] [address] Hemogram (08/14/2016 9:58 AM EDT) P athologist Signature WBC 7.6 4.0 - 9.5 [facility] x10(3)/[facility] LABORATORY RBC 4.74 4.00 - [facility] 5.21 [facility] x10(6)/[facility] LABORATORY Hemoglobin 14.8 11.7 - [facility] 15.5 gm/dL [facility] Hematocrit 43.0 35.7 - [facility] 45[facility] % [facility] MCV 90.7 82.6 - [facility] 94.4 fL [facility] MCH 31.2 27.1 - [facility] 32.0 pg [facility] MCHC 34.4 31.7 - ZAKIA ZHANG 35.0 gm/dL [facility] Platelets 209 145 - 357 [facility] x10(3)/[facility] LABORATORY RDWSD 43.6 37.0 - [facility] VICENTE 46.0 [facility] LABORATORY RDWCV 13.2 11.5 - [facility] VICENTE 14.1 % [facility] MPV 11.1 7.6 - 12.9 [facility] LABORATORY nRBC % Auto 0.0 % [facility] nRBC Abs Auto 0.000 0.000 - ZAKIA VICENTE 0.000 [facility] x10(3)/[facility] LABORATORY Specimen Anatomical Collection Method Collection Time Receive d Time (Source) Location / / Volume Laterality Blood specimen 08/14/2016 9:58 AM 017 (specimen) EDT 10:07 AM EDT Resulting Agency Comment Spec In Lab Luis Morgan MD HEMATOLOGY ORDERABLES Performing Organization Address City/[facility]/ZIP Code Phon e Number [address] Hepatitis B Surface Antigen (08/14/2016 9:58 AM EDT) Analysis Performed At Patho logist Time Signature HepB Surface Negative Negative [facility] LABORATORY Specimen Anatomical Collection Method Collection Time Receive d Time (Source) Location / / Volume Laterality Blood specimen 08/14/2016 9:58 AM 017 (specimen) EDT 10:07 AM EDT Resulting Agency Comment Spec In Lab Luis Morgan MD CHEMISTRY ORDERABLES Performing Organization Address City/[facility] Phon e Number [address] Hepatitis B Surface Antibody (08/14/2016 9:58 AM EDT) P athologist Signature HepB Surface 6.3 IU/L [facility] Ab Quant [facility] Comment: HepB Surface Ab Quant: Unvaccinated: < 8.5 IU/L Vaccinated: > 11.5 IU/L HepB Surface Ab Negative [facility] Comment: Patient is presumed to be not vaccinated or immune to HBV infection. Expected Results: Vaccinated: Positive Unvaccinated: Negative Specimen Anatomical Collection Method Collection Time Receive d Time (Source) Location / / Volume Laterality Blood specimen 08/14/2016 9:58 AM 017 (specimen) EDT 10:07 AM EDT Resulting Agency Comment Spec In Lab Luis Morgan MD IMMUNOLOGY ORDERABLES Performing Organization Address City/[facility]/[place] [address] APTT (08/14/2016 9:58 AM EDT) P athologist Signature PTT 30 25 - 35 sec [facility] Comment: The recommended therapeutic range for fu ll dose, unfractionated heparin at [facility] is 80 ? 114 seconds. The use of the anti-Xa (heparin) level rather than the PTT is recommended for monitoring anticoagul ation intensity in critically ill patients receiving unfractionated hepari n by continuous IV infusion. Specimen Anatomical Collection Method Collection Time Receive d Time (Source) Location / / Volume Laterality Blood specimen 08/14/2016 9:58 AM 017 (specimen) EDT 10:07 AM EDT Resulting Agency Comment Spec In Lab Luis Morgan MD HEMATOLOGY ORDERABLES Performing Organization Address City/[facility]/[place] [address] Prothrombin Time (08/14/2016 9:58 AM EDT) P athologist Signature PT 13.6 12.0 - 15.0 [facility] LABORATORY Comment: An INR <2.0 indicates [...] linical circumstances. INR 1.0 0.9 - 1.1 [facility] Specimen Anatomical Collection Method Collection Time Receive d Time (Source) Location / / Volume Laterality Blood specimen 08/14/2016 9:58 AM 017 (specimen) EDT 10:07 AM EDT Resulting Agency Comment Spec In Lab Luis Morgan MD HEMATOLOGY ORDERABLES Performing Organization Address City/State/[place] [address] (ABNORMAL) Comprehensive metabolic panel (non-fasting) (08/14/2016 9:58 AM EDT) P athologist Signature Glucose Lvl 99 65 - 199 [facility] mg/dL [facility] Comment: Diabetes: >=200 mg/dL plus symp toms BUN 23 (H) 8 - 18 mg/dL [facility] Creatinine 1.41 (H) 0.70 - 1.20 mg/dL [facility] Comment: Please note that the pediatric reference intervals supplied above were not validated at [facility]. Results from pediatri c patients should be interpreted in conjunction to the patient's age, height and muscle mass. Sodium 141 135 - 145 mmol/L [facility] Potassium 4.7 3.5 - 5.0 mmol/L [facility] Comment: Please note: ??Patients with WBC >100,00 0 may have falsely elevated Potassium levels. ??For accurate Potassium quantif ication in these patients send serum separator tube (gold top) for subsequent determinations. ??Contact the Clinical Chemistry Laboratory if there are any qu estions. Chloride 102 98 - 107 mmol/L [facility] CO2 27 22 - 31 mmol/L [facility] Anion Gap 12 5 - 15 mmol/L [facility] Calcium 9.6 8.5 - 10.5 mg/dL [facility] Total Protein 7.3 6.1 - 8.0 gm/dL [facility] Albumin 4.3 3.2 - 5.2 gm/dL [facility] AST 14 0 - 30 unit/L [facility] ALT 9 0 - 30 unit/L [facility] Alk Phos 63 40 - 104 unit/L [facility] Total Bilirubin 0.4 0.2 - 1.3 mg/dL [facility] Bili, Direct 0.1 0.0 - 0.3 mg/dL [facility] Estimated GFR 37 (L) >=60 [facility] Comment: This estimated GFR (eGFR) [...] the following links into your internet browser. [email or web address] Specimen Anatomical Collection Method Collection Time Receive d Time (Source) Location / / Volume Laterality Blood specimen 08/14/2016 9:58 AM 017 (specimen) EDT 10:07 AM EDT Resulting Agency Comment Spec In Lab Luis Morgan MD CHEMISTRY ORDERABLES Performing Organization Address City/State/[place] [address] documented in this encounter Visit Diagnoses Diagnosis Viral hepatitis B acute Viral hepatitis B without mention of hep atic coma, acute or unspecified, without mention of hepatitis delta documented in this encounter Care Teams Methods Specialist Relationship Specialty Start Date End Date Sanjuanita Lee MD PCP - General 03/05/13 12/23/[address] [place] [address] documented as of this encounter
--- OUTSIDE RECORDS SUMMARY | 2022-02-22 23:39 | XMS_ITS | Encounter Summary ---
:1950 Author Organization [facility] [place] [address] Care Team Providers Name Role Phone Lexus Lawson APRN Primary Care Provider Reason for Visit Reason Comments Medication Refill Encounter Details Date Type Department Care Team Description 02/06/2014 Refill Internal Medicine at [facility] Dwayne Douglass MD [facility] [place] [address] GENERAL INTERNAL MEDICINE [phone] [place], [place] [address] (Wo rk) Social History Tobacco [...] on filedocumented in this encounter Care Teams Visual Arts Teacher Relationship Specialty Start Date End Date Lexus Lawson APRN PCP - General Geriatric Medicine 12/24/[address] [place] [address] documented as of this encounter
--- OUTSIDE RECORDS SUMMARY | 2022-02-22 23:39 | XMS_ITS | Encounter Summary ---
:1950 Author Organization [facility] [place] [address] Care Team Providers Name Role Phone Sanjuanita Lee MD Primary Care Provider Reason for Visit Reason Comments Follow-up Encounter Details Date Type Department Care Team Description 05/18/2015 Office Visit Gastroenterology at [facility] Nakul Watt, Chronic hepatitis B [facility] Jennifer [place] [address] [facility] [phone] CENTER [place]STR[place] [address] Social History Tobacco Use Types Packs/Day Years [...] Sign Reading Time Taken Comments Blood Pressure 160/69 05/18/2015 10:28 AM EST Pulse 90 05/18/2015 10:28 AM EST Temperature - - Respiratory Rate - - Oxygen Saturation - - Inhaled Oxygen Concentration - - Weight 49 kg (108 lb) 05/18/2015 10:28 AM EST Height 153.7 cm (5' 0.5) 05/18/2015 10:28 AM EST Body Mass Index 20.75 05/18/2015 10:28 AM EST documented in this encounter Patient Instructions Patient InstructionsNakul Watt - 05/18/2015 11:04 AM EST 1. Check labs today 2. Receive hepatitis A and Pneumovax today 3. Schedule abdominal US today 4. Plan RTC in 6 months documented in this encounter Progress Notes Radha Mabry MD - 05/21/2015 3:22 PM EST Agree with Dr. Watt's assessment and plan for this patient. Radha Mabry MD Nakul Watt - 05/18/2015 1:38 PM EST [facility] Department of Gastroenterology Outpatient Progress Note GI Problem List: Hepatitis B -Presented [...] 11/2014 -Hep B S Ab positive 04/2015 Health Maintenance: Hepatitis A vaccine: 04/07/14, 11/2014 Hepatitis B vaccine: infected Colonoscopy per pt within past 10 years, not due currently Interval Events: Pt feeling ok denies f/c/n/v/d/cp/sob/GIB/confusion/edema. Medications: Current Outpatient Prescriptions on File Prior to Visit Medication Sig Dispense Refill ??? Cholecalciferol, Vitamin D3, (VITAMIN D-3) 2,000 unit Capsule Take by mouth. ??? omeprazole (PRILOSEC) 20 mg [...] Take 5 mg by mouth nightly. ??? tenofovir (VIREAD) 300 mg Tablet Take 1 tablet by mouth daily. 90 tablet 2 ??? spironolactone (ALDACTONE) 50 mg tablet Take 25 mg by mouth every other day. ??? citalopram (CELEXA) 20 mg tablet No current facility-administered medications on file prior to visit. PHYSICAL EXAM: Vitals: Last value Range last 24 hrs Temperature Heart Rate Heart Rate: 90 Heart Rate: [90] Blood Pressure BP: 160/69 mmHg BP: (160)/(69) Respiratory Rate Resp: -- SpO2 SpO2: -- Wt Readings from Last 3 Encounters: 05/18/15 48.988 kg (108 lb) 12/08/14 48.081 kg (106 lb) 04/07/14 49.986 kg (110 lb 3.2 oz) Body mass index is 20.74 kg/(m^2). Exam: Gen: AAOX3, NAD, cooperative HEENT: EOMI, Anicteric sclera, MMM CV: RRR, S1, S2, no murmurs, rub, click or lance appreciated Resp: CTAB, no rales, wheezing, rhonchi, normal respiratory effort Abd: Soft, NT, ND, NABS, No HSM appreciated Back: No CVA tenderness noted EXT: No pedal edema Skin: No rashes, sores or ulcers Neuro: Grossly nonfocal Labs: Recent Results (from the past 24 hour(s)) Comprehensive metabolic panel (non-fasting) Result Value Ref Range Glucose Lvl 112 65 - 199 mg/dL BUN 15 8 - 18 mg/dL Creatinine 1.23 (H) 0.70 - 1.20 mg/dL Sodium 143 135 - 145 mmol/L Potassium 3.5 3.5 - 5.0 mmol/L Chloride 103 98 - 107 mmol/L CO2 27 22 - 31 mmol/L Anion Gap 13 5 - 15 mmol/L Calcium 9.5 8.5 - 10.5 mg/dL Total Protein 7.3 6.1 - 8.0 gm/dL Albumin 4.5 3.2 - 5.2 gm/dL AST 24 0 - 30 unit/L ALT 15 0 - 30 unit/L Alk Phos 138 (H) 40 - 104 unit/L Total Bilirubin 0.4 0.2 - 1.3 mg/dL Bili, Direct 0.1 0.0 - 0.3 mg/dL Estimated GFR 44 (L) >=60 Prothrombin Time Result Value Ref Range PT 13.9 12.0 - 15.0 sec INR 1.0 0.9 - 1.1 APTT Result Value Ref Range PTT 32 25 - 35 sec Hepatitis B Surface Antibody Result Value Ref Range HepB Surface Ab Positive Hepatitis B Surface Antigen Result Value Ref Range HepB Surface Ag Negative Negative Hemogram Result Value Ref Range WBC 7.4 4.0 - 10.0 x10(3)/mcL RBC 4.73 3.93 - 5.22 x10(6)/mcL Hemoglobin 14.8 11.2 - 15.7 gm/dL Hematocrit 41.5 34.0 - 45.0 % MCV 87.7 79.0 - 94.0 fL MCH 31.3 26.6 - 32.2 pg MCHC 35.7 32.0 - 36.5 gm/dL Platelets 214 145 - 370 x10(3)/mcL RDWSD 40.9 35.0 - 46.0 fL RDWCV 12.9 10.9 - 14.4 % MPV 11.3 9.0 - 12.0 fL Differential, Automated Result Value Ref Range Neutrophils % 59.2 % Neutr Abs (ANC) 4.37 1.50 - 6.30 x10(3)/mcL Lymphocytes % 27.1 % Lymphocytes Abs 2.0 1.0 - 3.6 x10(3)/mcL Monocytes % 7.8 % Monocyte Abs 0.6 0.2 - 1.0 x10(3)/mcL Eosinophils % 5.0 % Eosinophils Abs 0.4 0.0 - 0.5 x10(3)/mcL Basophils % 0.9 % Basophils Abs 0.1 0.0 - 0.2 x10(3)/mcL Immature Gran % 0.00 % Blanca Gran Abs 0.00 0.00 - 0.05 x10(3)/mcL ASSESSMENT/PLAN: 64 year old female with chronic hepatitis B treated with lamivudine, transitioned to tenofovir, now here for GI clinic follow-up. 11/2014 serologies noted Hep BE Ab positive/BE Ag negative, Hep B S Ag negative. Today's Hep B S Ab positive (negative in 2012) suggesting patient has cleared Hep B virus atthis time. Plan to f/u HBV load if negative suspect patient can be discontinued off tenofovir. Of note Cr 1.23, mildly elevated in setting of normal BUN, potential for tenofovir medication related sideeffect. 11/2014 fibroscan revealed no e/o fibrosis and prior US noted no cirrhosis. For now plan Abd US repeat and clinic f/u in 6 months. Recommendations: -F/u HBV load, if negative will d/w with patient to discontinue tenofovir -US Abdomen -Hep A/Pneumovax administered in clinic today -RTC in 6 months Electronically signed by: Nakul Watt Gastroenterology Fellow [facility] Pager [phone] 05/18/2015 documented in this encounter Plan of Treatment Scheduled Procedures Name Priority Associated Diagnoses Date/Time EGD, UPPER GI ENDOSCOPY Gastroesophageal reflux disease, esophagitis presence not specifi ed documented as of this encounter Procedures Procedure Name Priority Date/Time Associated Comments Diagnosis HBV QUANT Routine 05/18/2015 11:45 Chronic hepatitis B Resu lts for this AM EST virus infection procedure ar e in the results section. HEPATITIS B DNA, Routine 05/18/2015 11:45 Chronic hepatitis B QUANTITATIVE, PCR AM EST virus infection HEMOGRAM Routine 05/18/2015 11:45 Chronic hepatitis B Resu lts for this AM EST virus infection procedure ar e in the results section. DIFFERENTIAL, Routine 05/18/2015 11:45 Chronic hepatitis B Res ults for this AUTOMATED AM EST virus infection procedure ar e in the results section. HEPATITIS BE ANTIGEN Routine 05/18/2015 11:45 Chronic hepatiti s B Results for this AND ANTIBODY AM EST virus infection procedure ar e in the results section. HEPATITIS B CORE Routine 05/18/2015 11:45 Chronic hepatitis B Results for this ANTIBODY, IGM AM EST virus infection procedure a re in the results section. HEPATITIS B SURFACE Routine 05/18/2015 11:45 Chronic hepatitis B Results for this ANTIBODY AM EST virus infection procedure ar e in the results section. HEPATITIS B SURFACE Routine 05/18/2015 11:45 Chronic hepatitis B Results for this ANTIGEN AM EST virus infection procedure ar e in the results section. APTT Routine 05/18/2015 11:45 Chronic hepatitis B Resu lts for this AM EST virus infection procedure ar e in the results section. PROTHROMBIN TIME Routine 05/18/2015 11:45 Chronic hepatitis B Results for this AM EST virus infection procedure ar e in the results section. CBC (WITH DIFF) Routine 05/18/2015 11:45 Chronic hepatitis B AM EST virus infection COMPREHENSIVE Routine 05/18/2015 11:45 Chronic hepatitis B Res ults for this METABOLIC PANEL AM EST virus infection procedure are in (NON-FASTING) the results section. documented in this encounter Results HBV Quant (05/18/2015 11:45 AM EST) Component Value Ref Test Analysis Performed At [facility] Range Method Time Signature Hepatitis B Result: <20 IU/mL Target Not Detected DEION DNA, UserscoutENNIUM quantitative, Indication for Study: Hepatitis B Infection [...] assay is being pe rformed in the [facility] Molecular Pathology Laboratory. Reno Sage, Ph.D. Director, Molecular Pathology Specimen Anatomical Collection Method Collection Time Receive d Time (Source) Location / / Volume Laterality Blood specimen 05/18/2015 11:45 6 8:23 (specimen) AM EST AM EST Resulting Agency Comment Spec In Lab Radha Mabry MD CHEMISTRY ORDERABLES Performing Organization Address City/State/ZIP Code Phon e Number [place] [id number] DEION UserscoutENNIUM Differential, Automated (05/18/2015 11:45 AM EST) P athologist Signature Neutrophils % 59.2 % CERNER MILLENNIUM Neutr Abs (ANC) 4.37 1.50 - CERNER 6.30 MILLENNIUM x10(3)/mcL Lymphocytes % 27.1 % CERNER MILLENNIUM Lymphocytes Abs 2.0 1.0 - 3.6 CERNER x10(3)/mcL MILLENNIUM Monocytes % 7.8 % CERNER MILLENNIUM Monocyte Abs 0.6 0.2 - 1.0 CERNER x10(3)/mcL MILLENNIUM Eosinophils % 5.0 % CERNER MILLENNIUM Eosinophils Abs 0.4 0.0 - 0.5 CERNER x10(3)/mcL MILLENNIUM Basophils % 0.9 % CERNER MILLENNIUM Basophils Abs 0.1 0.0 - 0.2 CERNER x10(3)/mcL MILLENNIUM Immature Gran % 0.00 % CERNER MILLENNIUM Comment: Immature granulocytes(IG's)percentage an d absolute count will include metamyelocytes, myelocytes, and promyelo cytes. Blood smears from CBCs yielding IG's will be scanned manually for concor dance. If this scan disagrees with the automated IG or if promyelocytes are not ed, a manual differential will be performed. Blanca Gran Abs 0.00 0.00 - 0.05 x10(3)/mcL CER NER MILLENNIUM Specimen Anatomical Collection Method Collection Time Receive d Time (Source) Location / / Volume Laterality Blood specimen 05/18/2015 11:45 6 (specimen) AM EST 12:00 PM EST Resulting Agency Comment Spec In Lab Radha Mabry MD HEMATOLOGY ORDERABLES Performing Organization Address City/State/[place] [address] CERNER MILLENNIUM Hemogram (05/18/2015 11:45 AM EST) P athologist Signature WBC 7.4 4.0 - 10.0 CERNER x10(3)/mcL MILLENNIUM RBC 4.73 3.93 - 5.22 CERNER x10(6)/mcL MILLENNIUM Hemoglobin 14.8 11.2 - 15.7 CERNER gm/dL MILLENNIUM Hematocrit 41.5 34.0 - 45.0 CERNER % [facility] MCV 87.7 79.0 - 94.0 CERNER fL [facility] MCH 31.3 26.6 - 32.2 CERNER pg [facility] MCHC 35.7 32.0 - 36.5 CERNER gm/dL [facility] Platelets 214 145 - 370 CERNER x10(3)/mcL [facility] RDWSD 40.9 35.0 - 46.0 CERNER fL [facility] RDWCV 12.9 10.9 - 14.4 CERNER % [facility] MPV 11.3 9.0 - 12.0 CERNER fL [facility] Specimen Anatomical Collection Method Collection Time Receive d Time (Source) Location / / Volume Laterality Blood specimen 05/18/2015 11:45 6 (specimen) AM EST 12:00 PM EST Resulting Agency Comment Spec In Lab Radha Mabry MD HEMATOLOGY ORDERABLES Performing Organization Address City/[facility]/ZIP Code Phon e Number [address] [facility] Hepatitis B Core Antibody, IgM (05/18/2015 11:45 AM EST) Analysis Performed At Patho logist Time Signature Hep B Core IgM Negative Negative [facility] Comment: Test Performed by: [facility] [place] [address] Cannon Crewmember: Glory Hines Specimen Anatomical Collection Method Collection Time Receive d Time (Source) Location / / Volume Laterality Blood specimen 05/18/2015 11:45 6 1:26 (specimen) AM EST PM EST Resulting Agency Comment Spec In Lab Radha Mabry MD IMMUNOLOGY ORDERABLES Performing Organization Address City/[facility]/ZIP Code Phon e Number [address] [facility] (ABNORMAL) Hepatitis BE Antigen and Antibody (05/18/2015 11:45 AM EST) P athologist Signature Hep B E Ag Negative Negative [facility] Comment: Test Performed by: [facility] [place] [address] Cannon Crewmember: Glory Hines. Hep B E Ab Positive (A) Negative DE[facility] Pan Comment: Test Performed by: [address], [place] [address] Cannon Crewmember: Glory Hines Specimen Anatomical Collection Method Collection Time Receive d Time (Source) Location / / Volume Laterality Blood specimen 05/18/2015 11:45 6 1:26 (specimen) AM EST PM EST Resulting Agency Comment Spec In Lab Radha Mabry MD IMMUNOLOGY ORDERABLES Performing Organization Address City/State/ZIP Code Phon e Number [address] CERNER MILLENNIUM Hepatitis B Surface Antigen (05/18/2015 11:45 AM EST) Analysis Performed At Patho logist Time Signature HepB Surface Negative Negative CERNER Ag MILLENNIUM Specimen Anatomical Collection Method Collection Time Receive d Time (Source) Location / / Volume Laterality Blood specimen 05/18/2015 11:45 6 (specimen) AM EST 12:00 PM EST Resulting Agency Comment Spec In Lab Radha Mabry MD CHEMISTRY ORDERABLES Performing Organization Address City/[facility]/ZIP Code Phon e Number [address] CERNER MILLENNIUM Hepatitis B Surface Antibody (05/18/2015 11:45 AM EST) Analysis Performed At Patho logist Time Signature HepB Surface Positive CERNER Ab MILLENNIUM Comment: Expected Results: Vaccinated: Positive Unvaccinated: Negative Please note: A positive result for this assay is consistent with a concentration of anti-HBs antibodies >10 mIU/ml, which indicates that anti-HBs antibodies have been detected at levels consistent with protective immunity against HBV infection. Specimen Anatomical Collection Method Collection Time Receive d Time (Source) Location / / Volume Laterality Blood specimen 05/18/2015 11:45 6 (specimen) AM EST 12:00 PM EST Resulting Agency Comment Spec In Lab Radha Mabry MD IMMUNOLOGY ORDERABLES Performing Organization Address City/[facility]/ZIP Code Phon e Number [address] CERNER MILLENNIUM APTT (05/18/2015 11:45 AM EST) athologist Signature PTT 32 25 - 35 sec CERNER MILLENNIUM Comment: Recommended therapeutic PTT range for fu ll dose unfractionated heparin is 80-114 seconds. Specimen Anatomical Collection Method Collection Time Receive d Time (Source) Location / / Volume Laterality Blood specimen 05/18/2015 11:45 6 (specimen) AM EST 12:00 PM EST Resulting Agency Comment Spec In Lab Radha Mabry MD HEMATOLOGY ORDERABLES Performing Organization Address City/[facility]/ZIP Code Phon e Number [address] CERNER MILLENNIUM Prothrombin Time (05/18/2015 11:45 AM EST) athologist Signature PT 13.9 12.0 - 15.0 CERNER sec MILLENNIUM Comment: Transfusion Committee Guidelines: INR less than 2.0, PTT less than OR equal to 43.5 seconds, or Fibrinogen greater t sheridan or equal to 100 mg/dl indicate adequate procoagulant activity for hemos tasis in patients without underlying bleeding disorders. INR 1.0 0.9 - 1.1 CERNER MILLENNIUM Specimen Anatomical Collection Method Collection Time Receive d Time (Source) Location / / Volume Laterality Blood specimen 05/18/2015 11:45 6 (specimen) AM EST 12:00 PM EST Resulting Agency Comment Spec In Lab Radha Mabry MD HEMATOLOGY ORDERABLES Performing Organization Address City/[facility]/ZIP Code Phon e Number [address] CERNER MILLENNIUM (ABNORMAL) Comprehensive metabolic panel (non-fasting) (05/18/2015 11:45 AM EST) athologist Signature Glucose Lvl 112 65 - 199 CERNER mg/dL MILLENNIUM Comment: Diabetes: >=200 mg/dL plus symp toms BUN 15 8 - 18 mg/dL CERNER MILLENNIUM Creatinine 1.23 (H) 0.70 - 1.20 mg/dL CERNER MILL ENNIUM Comment: Please note that the pediatric reference intervals supplied above were not validated at [facility]. Results from pediatri c patients should be interpreted in conjunction to the patient's age, height and muscle mass. Sodium 143 135 - 145 mmol/L CERNER BECKY NIUM Potassium 3.5 3.5 - 5.0 mmol/L CERNER BECKY NIUM Comment: Please note: ??Patients with WBC >100,00 0 may have falsely elevated Potassium levels. ??For accurate Potassium quantif ication in these patients send serum separator tube (gold top) for subsequent determinations. ??Contact the Clinical Chemistry Laboratory if there are any qu estions. Chloride 103 98 - 107 mmol/L CERNER MILLENN IUM CO2 27 22 - 31 mmol/L CERNER MILLENNI UM Anion Gap 13 5 - 15 mmol/L CERNER MILLENNIU M Calcium 9.5 8.5 - 10.5 mg/dL CERNER BECKY NIUM Total Protein 7.3 6.1 - 8.0 gm/dL CERNER MIL LENNIUM Albumin 4.5 3.2 - 5.2 gm/dL CERNER MILLENN IUM AST 24 0 - 30 unit/L CERNER MILLENNIU M ALT 15 0 - 30 unit/L CERNER MILLENNIU M Alk Phos 138 (H) 40 - 104 unit/L CERNER MILLENN IUM Total Bilirubin 0.4 0.2 - 1.3 mg/dL CERNER M ILLENNIUM Bili, Direct 0.1 0.0 - 0.3 mg/dL CERNER MILL ENNIUM Estimated GFR 44 (L) >=60 CERNER MILLENNIU M Comment: This [...] the following links into your internet browser. http://Liqu[employer]ids/DHnkdep [email or web address] Specimen Anatomical Collection Method Collection Time Receive d Time (Source) Location / / Volume Laterality Blood specimen 05/18/2015 11:45 6 (specimen) AM EST 11:59 AM EST Resulting Agency Comment Spec In Lab Radha Mabry MD CHEMISTRY ORDERABLES Performing Organization Address City/State/ZIP Code Phon e Number [address] [facility] documented in this encounter Visit Diagnoses Diagnosis Chronic hepatitis B virus infection documented in this encounter Care Teams Bottoming Room Inspector Relationship Specialty Start Date End Date Sanjuanita Lee MD PCP - General 03/05/13 12/23/[address] [place] [address] documented as of this encounter
--- OUTSIDE RECORDS SUMMARY | 2022-02-22 23:39 | XMS_ITS | Encounter Summary ---
:1950 Author Organization [facility] [address] Care Team Providers Name Role Phone Sanjuanita Lee MD Primary Care Provider Reason for Visit Auth/Cert Specialty Diagnoses / Procedures Referred By Contact Refer red To Contact Diagnoses 3 yr surv from 01/20/14 Procedures EGD, UPPER GI ENDOSCOPY Referral ID Status Reason Start Date Expiration Date Visits Requ ested Visits Authorized [id number] 1 1 Encounter Details Date Type Department Care Team Description 07/28/2017 Surgery Gastroenterology at [facility] Snow Liao EGD, UPPER GI [facility] Jennifer [place] [address] [facility] [phone] DR GASTROENTEROLOGY [place], [place] [address] Social History Tobacco Use Types [...] Sign Reading Time Taken Comments Blood Pressure 148/66 07/28/2017 10:30 AM EDT Pulse 55 07/28/2017 10:30 AM EDT Temperature - - Respiratory Rate 12 07/28/2017 10:30 AM EDT Oxygen Saturation 98% 07/28/2017 10:30 AM EDT Inhaled Oxygen Concentration - - Weight - - Height - - Body Mass Index - - documented in this encounter Discharge Instructions Discharge InstructionsAustin Ruano RN - 07/28/2017 11:04 AM EDT Please call [phone] before 8pm Mon-Fri with problems, questions or concerns. If you call after 8pm or on weekends, call the Hospital at [phone] and ask to speak to the Research Greenhouse Supervisor arson and bomb investigator and the dairy farm operator will contact that person for you. AttachmentsThe following attachments cannot be sent through Care Everywhere.EGD (UPPER ENDOSCOPY): POST-OP (TURKISH)documented in this encounter Medications at Time of [...] sedation) Snow Liao MD Gastroenterology attending Pager [phone] documented in this encounter Procedure Notes Nancy [...] Component Value Ref Test Analysis Performed At [facility] Range Method Time Signature UPPER GI [facility] ENDOSCOPY Endoscopy Procedure Date: 07/28/2017 10:17 AM ? Patient Name: Charlene Harmon ? N: [id number] ? Date of : 1950 ? Age: 66 ? Order #: [id number] ? Instrument Name: [id number] ? Procedure: ? Upper GI endoscopy Indications: ? Cirrhosis rule out esophageal ? varices, Portal hypertension rule out ? esophageal varices Providers: ? Snow Liao MD, Nancy ? Aletha, LAWRENCE, Brent Mittal Referring : ?Sanjuanita Lee MD Medicines: ? Midazolam 3 [...] No specimens collected. Recommendation: ?- Follow-up with [facility] hepatology as ? previously planned. ? - [...] Action Action Date Dose Rate Site fentaNYL 50 mcg/mL Given 07/28/2017 10:35 AM EDT 25 mcg Right Arm multi-dose injection ONCE PRN, Starting on 07/28/17 at 1029, Until Tue 18 at 1456, Intra-Operative (Intra-Procedure), Routine Given 07/28/2017 10:32 AM EDT 50 mcg Righ t Arm Given 07/28/2017 10:29 AM EDT 50 mcg Righ t Arm lactated Ringers infusion Rate/Dose Change 07/28/2017 12:53 PM 900 mL/hr 900 mL/hr 100 mL/hr, Intravenous, EDT CONTINUOUS, Starting on 07/28/17 at 1000, Until Tue 18 at 1456, Endoscopy (Day of Procedure) New Bag 07/28/2017 10:00 AM EDT 100 mL/hr 100 mL/hr midazolam (PF) (VERSED) 1 mg/mL Given 07/28/2017 10:35 AM EDT 1 mg Right Arm multi-dose injection ONCE PRN, Starting on 07/28/17 at 1029, Until Tue 18 at 1456, Intra-Operative (Intra-Procedure), Routine Given 07/28/2017 10:32 AM EDT 1 mg Righ t Arm Given 07/28/2017 10:29 AM EDT 1 mg Righ t Arm naloxone (NARCAN) 2 mg in New Bag 07/28/2017 10:45 AM EDT 0.4 mg/h r 100.4 mL/hr sodium chloride 0.9% 502 mL infusion 0.4 mg/hr (100.4 mL/hr), Intravenous, CONTINUOUS, Starting on 07/28/17 at 1115, Until 07/28/17 at 1456, Endoscopy (Day of Procedure), Routine documented in this encounter Active and Recently Administered Medications Times are shown in EDT. Continuous Medication Order 07/26/2017 07/27/2017 07/28/2017 lactated Ringers infusion 1000 ( New Bag - Provider: Brittney Celis RN)1253 (Rate/Dose Change - Provider: Austin Ruano RN) 100 mL/hr, at 100 mL/hr, Intravenous, CO NTINUOUS, Starting 07/28/17 at 1000, Until Tue 18 at 1456, Endo (Day of Procedure) naloxone (NARCAN) 2 mg in sodium chloride 0.9% 502 mL infusion 1045 (New Bag - Provider: Nancy Pompa RN - Comment: .2 mg given at 1045 and .2 given at 1047) 0.4 mg/hr (100.4 mL/hr), at 100.4 mL/hr, Intravenous, CONTINUOUS, Starting Tue 18 at 1115, Until Tue 18 at 1456, Endo (Day of Procedure) PRN Medication Order 07/26/2017 07/27/2017 07/28/2017 fentaNYL 50 mcg/mL multi-dose injection (CANCELED) 1029 (Given - Provider: Nancy Pompa RN)1032 (Given - Provider: Nancy Pompa RN)1035 (Given - Provider: Nancy Pompa RN) ONCE PRN, Starting Tue 18 at 1029, U ntil Tue //18 at 1456, Intra-Operative (Intra-Procedure), Routine midazolam (PF) (VERSED) 1 mg/mL multi-dose injection (CANCELED) 1029 (Given - Provider: Nancy Pompa RN)1032 (Given - Provider: Nancy Pompa RN)1035 (Given - Provider: Nancy Pompa RN) ONCE PRN, Starting Tue 418 at 1029, U ntil 4/3/18 at 1456, Intra-Operative (Intra-Procedure), Routine documented in this encounter Care Teams Santa'S Helper Relationship Specialty Start Date End Date Sanjuanita Lee MD PCP - General 03/05/13 12/23/21 [address] [place] [address] documented as of this encounter
--- OUTSIDE RECORDS SUMMARY | 2022-02-22 23:40 | XMS_ITS | Encounter Summary ---
:1950 Author Organization [facility] [place] [address] Care Team Providers Name Role Phone Manasa Mathur MD Primary Care Provider Reason for Visit Reason Comments GI Problem Encounter Details Date Type Department Care Team Description 03/04/2013 Office Visit Gastroenterology at [facility] Nuha Rico, Acute hepatitis b [facility] Jennifer ivory APRN (Primary Dx) [place] [address] [facility] [phone] [place] [address] Social History Tobacco Use Types Packs/Day Years [...] Sign Reading Time Taken Comments Blood Pressure 137/57 03/04/2013 8:57 AM EST Pulse 74 03/04/2013 8:57 AM EST Temperature - - Respiratory Rate - - Oxygen Saturation - - Inhaled Oxygen Concentration - - Weight - - Height 152.4 cm (5') 03/04/2013 8:57 AM EST Body Mass Index - - documented in this encounter Progress Notes Nuha Rico APRN - 03/04/2013 8:57 AM EST Subjective: Patient ID: Charlene Harmon is a 62 y.o. female. HPI Ms. Harmon is a 62 year old female referred by Lexus Menon NP for further evaluation and management of acute hepatitis. Ms. Harmon is a 62 year old female who was seen at the ED aobut three days ago for new onset jaundice,her tests revealed acute hepatitis B infection with a positive Hep Bcab IgM. She denies any risk factors for acute hepatitis B infection, denies new sexual partners or contact with blood. Her husbands h epatitis B status is unknown at this time. Ms. Harmon first started to notice jaundice with yellowing of her eyes about 3-4 days ago, however herhusband started to notice it on February 25. She is also having dark urine for the past four weeks. She also had noted infante colored stools a few weeks ago. She is having fatigue which she has noticed a few weeks ago. She was having diarrhea and constipation, nausea and vomiting and lack of appetite. She is able to keep fluids down, she has not lost any weight. She was started on an antiemetic which has helped with the nausea. Her travel history is all domestic, she traveled to [place] from 02/08-02/12, she denies eating raw seafood or unusual foods. She also travelled to [facility] from 01/21-, she remembers eating some chili that didn't settle well. She does not remember eating raw foods like salads etc. In regards to medications she was taking Lotrel for over a year, gabapentin for at least a year, simvastatin for at least a year, doxazosin for about a year. Aspirin, calcium, potassium, osteo bi-flex.She reports that she had black toes and the aspirin was started for this several years ago. She started Amitiza in October of 2012, citalopram for a year and melatonin She denies any new meds, vitamins or herbal products, nothing from the [employer] store in the past few months. This past summer she had issues with acute diarrhea, she would eat and have to stool immediately. This went on for about a month, she was seen by GI who did a colonoscopy and was diagnosed with a form of colitis after the c olonoscopy she returned to her normal bowel habit which was basically constipation. During this timeshe would wake in the middle of the night and find that she had a bowel movement in the middle of the night. This is her first icteric illness. She has some right sided back pain which started in [place] aftera rough boat ride and this is what led her to see her chiropractor, she feels that the pain is improving. OUTSIDE STUDIES: 02/26/2013 02/28/2013 03/03/2013 ast 1066 1092 1285 alt 1328 1363 1307 tbili 13.13 16.3 19.9 inr 1.8 1.8 1.8 tprot 5.3 alb 2.4 ap 190 plt 112 Hep BcIGM pos Hep Bsag pos Hep cab neg 03/03/2013 abd ultrasound Mild gallbladder distension without evidence of cholelithiasis or gallbladder wall thickening 02/26/[address] Moderate intrahepatic biliary dilatation and probable extra hepatic biliary dilatation as well. Gallbladder is distended. The gallbladder wall appears mildly thickened. Finding inconclusive for cholelithiasis Past Medical History Diagnosis Date ??? Hypertension ??? Constipation Past Surgical History Procedure Date ??? Hysterectomy Family History Problem Relation Age of Onset ??? Cancer Mother ??? Chronic Obstructive Pulmonary Disease Father History Social History ??? Marital Status: Spouse Name: N/A Number of Children: N/A ??? Years of Education: N/A Social History Main Topics ??? Smoking status: Never Smoker ??? Smokeless tobacco: None ??? Alcohol Use: Yes a few glasses of wine, rarely 4 times a year ??? Drug Use: No ??? Sexually Active: None Other Topics Concern ??? Blood Transfusions No ??? 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 Negative for fever. HENT: Negative for nosebleeds and tinnitus. Eyes: Negative for visual disturbance. Respiratory: Negative for cough and shortness of breath. Cardiovascular: Positive for leg swelling (started this week, right greater than left). Negative forchest pain and palpitations. Gastrointestinal: Positive for constipation. Negative for nausea (controlled), vomiting, abdominal pain and blood in stool. Genitourinary: Negative for urgency, frequency and hematuria. Musculoskeletal: Positive for back pain. Negative for myalgias and arthralgias. Skin: Negative for rash. Neurological: Negative for seizures, light-headedness and numbness. Hematological: Bruises/bleeds easily. Psychiatric/Behavioral: Positive for sleep disturbance (longstanding issue). Objective: Physical Exam Constitutional: She is oriented to person, place, and time. She appears well- developed and well-nourished. HENT: Head: Normocephalic and atraumatic. Eyes: Pupils are equal, round, and reactive to light. Scleral icterus is present. Neck: No thyromegaly present. Cardiovascular: Normal rate, regular rhythm and normal heart sounds. No murmur heard. Pulmonary/Chest: Breath sounds normal. Abdominal: Soft. There is tenderness (diffusely). Musculoskeletal: She exhibits edema (right lower extrem edema). Neurological: She is alert and oriented to person, place, and time. Skin: Skin is warm and dry. Psychiatric: She has a normal mood and affect. Her behavior is normal. Assessment and Plan: Ms. Harmon has an acute hepatitis B infection, with a rising bilirubin and prolonged INR, she is not currently confused. After consulting with my colleagues we have decided to admit Charlene and start Lamivudine at 100 mg a day. Will need to monitor for mental status changes over the weekend and monitor INR daily. It is unclear to me where she contracted the acute hepatitis B, she denies any new sexual contacts nor contact with blood. Her is being tested today as a potential carrier. Hep B DNA, Eag and Eab, Hep D and Hep E, and autoimmune markers were drawn yesterday at [facility]. I will plan to follow up with Charlene after her discharge. Nuha Rico APRN - 03/04/2013 8:57 AM EST documented in this encounter Plan of Treatment Scheduled Procedures Name Priority Associated Diagnoses Date/Time EGD, UPPER GI ENDOSCOPY Gastroesophageal reflux disease, esophagitis presence not specifi ed documented as of this encounter Visit Diagnoses Diagnosis Acute hepatitis B - Primary Viral hepatitis B without mention of hep atic coma, acute or unspecified, without mention of hepatitis delta documented in this encounter Care Teams Glass Decorator Relationship Specialty Start Date End Date Manasa Mathur MD PCP - General 03/19/10 03/04/[address] [place] [address] documented as of this encounter
--- OUTSIDE RECORDS SUMMARY | 2022-02-22 23:40 | XMS_ITS | Encounter Summary ---
:1950 Author Organization [facility] [place] [address] Care Team Providers Name Role Phone Maico Jones MD Primary Care Provider Encounter Details Date Type Department Care Team Description 03/04/2013 - Hospital Encounter 1 Marichuy Steele MD [facility] [place] [address] Acute hepatitis; 03/07/2013 [facility] Fausto Angel MD [facility] [place] [address] [place] [id number] Social History Tobacco Use Types Packs/Day Years [...] Sign Reading Time Taken Comments Blood Pressure 143/61 03/07/2013 3:37 PM EST Pulse 73 03/07/2013 3:37 PM EST Temperature 36.8 ??C (98.2 ??F) 03/07/2013 3:37 PM EST Respiratory Rate 16 03/07/2013 3:37 PM EST Oxygen Saturation 95% 03/07/2013 11:47 AM EST Inhaled Oxygen Concentration - - Weight 62.6 kg (138 lb 0.1 oz) 03/07/2013 3:49 AM EST Height 152.4 cm (5') 03/04/2013 10:31 PM EST Body Mass Index 26.95 03/04/2013 10:31 PM EST documented in this encounter Discharge Instructions Patient InstructionsNani Carver Shruthi - 03/07/2013 1:05 PM EST Instruction after leaving the hospital Why you were hospitalized: hepatitis B infection Call your doctor or seek medical attention if you develop the following: worsening fatigue, abdominal pain, nausea, vomiting, fevers, chills, decreased urine output, or any other worsening, new or concerning symptoms Activity level: you can gradually return to normal activities as tolerated Diet: recommend a full nutritious diet Driving: recommend against driving until you are feeling back to normal Shower/Bath: with caution if fatigued Wound Care: n/a Home Oxygen therapy: n/a Specific instructions related to your condition: Please have your blood drawn for Liver Function Tests and Coagulation Factors on Mar 09 and Mar 11 at [place]. These results should be faxed to the Gastroenterology Clinic at [facility],Attn: Annmarie Rico, . (The order for this is attached in these instructions) You will be called about an appointment in hepatology clinic. If you do not hear from the clinic in the next few days please call [facility] at [phone], ask for hepatology (or gastroenterology), and speak with the clinical nurse. Please follow-up with your PCP, Dr. Maico Jones, on Friday, March 08, 2013 at 10:30am. It is okay to re-start your aspirin. However, we would recommend an 81mg dose with follow-up with your PCP. Although hepatitis B is not typically spread by contact, it would be reasonable to recommend that your family members get vaccinated and could consider testing to ensure they do not have hepatitis B. We have prescribed you lamivudine for your hepatitis. 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 Your Inpatient Doctor(s) at [facility]: (inpatient hospital medicine team) Dr. Lopez, Dr. Angel, Dr. Preciado, Dr. Lopez, Dr. Kamara documented in this encounter Medications at Time of Discharge Medication Sig Dispensed Refills Start Date End Date amlodipine (NORVASC) 10 Take 10 mg by mouth 0 07/201209/14/2018 mg tablet daily. citalopram (CELEXA) 20 mg 0 02/17/2013 02/24/2018 tablet omeprazole (PRILOSEC OTC) Take 1 tablet by 30 tablet 11 02/2503/07/2014 20 mg tablet mouth daily. lactulose (CHRONULAC) 20 Take 30 mLs by mouth 200 mL 5 1 05/07/2012 03/11/2013 gram/30 mL solution daily as needed. lamiVUDine (EPIVIR) 100 Take 1 tablet by 60 tablet 5 201211/11/2013 mg tablet mouth daily. magnesium oxide (MAG-OX) [...] documented as of this encounter Progress Notes Fausto Angel MD - 03/07/2013 4:53 PM EST Hospital Medicine - Attending Day of Discharge Documentation Discharge diagnosis Active Hospital Problems Diagnosis ??? Viral hepatitis B acute Resolved Hospital Problems Diagnosis Date Resolved No resolved problems to display. Secondary Issues Active Non-Hospital Problems Diagnosis ??? Acute hepatitis I have personally seen and examined the patient and they are ready for discharge. Plans Discharge to home Continue lamivudine 100 mg daily Follow-up scheduled with GI/liver clinic Please see the Discharge Summary for complete details of any medication changes and additional plans. I spent <30 minutes (Day of Discharge Code 32292) involved in the final examination of the patient, discussion of the hospital stay, instructions for continuing care to all relevant caregivers, and preparation of discharge records, prescriptions and referral forms. Maryam Gaytan OT - 03/07/2013 4:53 PM EST Occupational Therapy Note OT referral received, chart reviewed, consult with RN and PT. Pt up in room and fully indep for self-care. Has supportive SO who will assist as needed. No OT needs at this time. Thank you for this referral, Maryam Penn OT/Sonia Beeper [address] Nuvia Ambrosio RN - 03/07/2013 4:44 PM EST AVF reviewed with Pt and spouse by MDs. No questions. Pt and spouse verbalize understanding of meds and D/C plans. IV line removed Pt D/Cd home with spouse Sydney Pérez RN - 03/07/2013 12:45 PM EST Office of Care Management (OCM) / Clinical Insole And Outsole Preparer (CRC)/ Initial Assessment Discussed patient with Provider Team and in multidisciplinary discharge-planning rounds. Reviewed record and interviewed patient. Introduced/reviewed CRC role and services accepted. I wrote my name and pager number on the pt's white board. REASON for HOSPITALIZATION: Pt presented with right flank pain, nausea, vomiting, jaundice, and fatigue x 1 week. PMH Past Medical History Diagnosis Date ??? Hypertension ??? Constipation ??? Dyslipidemia ??? Peripheral vascular disease ??? Insomnia PREVIOUS FUNCTIONAL STATUS: Cognitively and physically intact. No assistive devices for ambulation. CURRENT FUNCTIONAL STATUS: Same. SOCIAL / FAMILY SUPPORTS: Rodolfo Harmon, Spouse, , Brooke Caban, Friend, . ADVANCE DIRECTIVES: On file in [employer]. HEALTH /PRESCRIPTION COVERAGE: (1) [employer] CURRENT HOME/COMMUNITY SERVICES/EQUIPMENT: DME: None Home Health Agency: None Other: None SENIOR UI UX DESIGNER REFERRAL: Not indicated at this time. PRIMARY CARE PHYSICIAN: MAICO JONES MD [address] [facility] [address] POTENTIAL DISCHARGE NEEDS: None noted at this time. PATIENT/FAMILY EDUCATION NEEDS: As determined by multi-disciplinary team. ANTICIPATED BARRIERS TO DISCHARGE: None currently noted. TRANSPORTATION @ D/C: Pt's . PLAN: Myself or a fellow CRC will continue to monitor progress, follow for continuity of care and assist with discharge planning while hospitalized. Sydney Pérez SKEIN WASHER Clinical Insole And Outsole Preparer Office of Care Management Phone: [phone] Eliezer Munoz MD - 03/06/2013 10:28 AM EST Gastroenterology Inpatient Progress Note: Patient ID: Pretty Harmon is a 62 y.o. with PMH of HTN, PVD, HLP, Constipation, AAA present from acuteHep B infection currently on lamivudine 100 mg daily with improvement in her transaminitis and no sign's of encephalopathy. # Acute Hep B infection -presented to OSH with malaise, fatigue, N/V -labs: INR 1.8, TBili 13.1, Dbili:10.4, AST 1056, ALT 1328, Alk Phos 233, T.P 5.3, Alb 2.4. -Hep B IgM core ab and surface antigen were positive -03/03/13: CT abd/plevis showed moderate intrahepatic biliary dilatation with probable extra hepatic biliary dilatation and CBD: 7-8mm, gallbladder is distended/hydropic and appeared mildly thickened with no acute cholecystitis -03/03: OSH: US abdomen done also showed mild gallbladder distension without evidence of cholelithiasis or gallbladder wall thickening. CBD: 7mm -Admitted: 03/05: AST/ALT: 1063/1046 Tbili: 20, DBili: >10. T.P: 4.9 Alb: 2.7 INR: 2.0 -03/06: AST/ALT: 853/827, Alk phos: 146 T.bili: 16 Dbili: >10. INR not checked - 03/07: Transaminitis tending down with INR: 1.8 Active GI Problems: Patient Active Problem List Diagnosis Code ??? Acute hepatitis 570 ??? Viral hepatitis B acute 070.30 Interval History: No new issues overnight. Denies fevers, chills, nausea, vomiting or diarrhea. Denies blood in stool or melena. Denies any confusion reports dark urine. Current meds: Scheduled Meds: ??? sodium chloride 0.9 % 5 mL Intravenous Q12H ??? melatonin 3 mg Oral Nightly ??? lactulose 30-60 mL Oral Daily ??? esomeprazole 40 mg Oral Daily ??? multivitamin 1 tablet Oral Daily ??? lamiVUDine 100 mg Oral Daily Continuous Infusions: ??? dextrose 5% and sodium chloride 0.45% with potassium chloride 20 mEq 100 mL/hr (03/05/13 2778) PRN Meds:.ondansetron, bisacodyl, bisacodyl, HYDROmorphone, pneumococcal Physical exam: Filed Vitals: 03/06/13 0739 BP: 144/64 Pulse: 72 Temp: 36.4 ??C (97.5 ??F) Resp: 16 Gen:jaundiced improving Heent: sclera icterus, dry MM CV: RRR, +s1/s2, no murmur, rub or gallop Lungs: CTAB without wheeze, rale or rhonchi Abd: soft, NT, ND, NABS. Ext: WWP, no CCE Labs: CBC Lab Results Component Value Date WBC 8.7 03/06/2013 Hemoglobin 12.7 03/06/2013 Hematocrit 36.0 03/06/2013 Platelets 98* 03/06/2013 Lab Results Component Value Date Sodium 136 03/06/2013 Potassium 4.0 03/06/2013 Chloride 109* 03/06/2013 CO2 21* 03/06/2013 BUN 11 03/06/2013 Creatinine Not Perf 03/06/2013 Glucose Lvl 117 03/06/2013 LFT's Lab Results Component Value Date Alk Phos 136* 03/06/2013 AST 777* 03/06/2013 Albumin 2.2* 03/06/2013 Bili, Direct >10.0 03/06/2013 Total Bilirubin 16.2* 03/06/2013 ALT 815* 03/06/2013 Total Protein 4.4* 03/06/2013 Impression/Recommendations: Pretty Harmon is a 62 y.o. with PMH of HTN, PVD, HLP, constipation, AAA present from acute Hep B infection currently on lamivudine 100 mg daily with improvement in her transaminitis most importantly no evidence of encephalopathy. We will need to watch her synthetic function which will be more marker of her recovery along with encephalopathy. Recommendations: # continue lamivudine 100mg daily # check LFT's, PT/INR daily # encouraged her to discuss with family members (, children to get test if negative vaccinated) # monitor for signs of encephalopathy if evidence start lactulose 30mg TID (3- 4BM per day) # monitor electrolytes specifically (K, Mg, phos and replete can precipitate encephalopathy) # F/u Hep B DNA, Hep Eag/Eab, Hep D and autoimmune markers were drawn yesterday at [facility] # anticipate d/c in next 24-48hrs, with close follow up in the liver clinic Patient was seen and discussed with Dr. Eliezer Munoz Recommendations reviewed with Primary team. Abimbola Olson MD Gastroenterology Fellow Pager: [phone] Addendum: I agree with the complete and thorough not as documented by Dr Olson including the history, physical, assessment and plan. My independent examination confirms the above findings. Fausto Angel MD - 03/05/2013 8:44 PM EST Inpatient Hospital Medicine Progress Note ID: 62 y.o. female with R flank pain, N/V, jaundice, found to have acute hep B Hospital Day 2 days Active Problems: #acute hepatitis B #elevated INR #hyperbilirubinemia #hypoalbuminemia 24 hour Events/Subjective: - no major events - patient reports continued improvement of symptoms, taking POs w/o difficulty - DVT study neg ??? [DISCONTINUED] dextrose 5% and sodium chloride 0.45% with potassium chloride 20 mEq 100 mL/hr (03/05/13 6710) Active Medications: Scheduled Meds: ??? sodium chloride 0.9 % 5 mL Intravenous Q12H ??? melatonin 3 mg Oral Nightly ??? lactulose 30-60 mL Oral Daily ??? esomeprazole 40 mg Oral Daily ??? multivitamin 1 tablet Oral Daily ??? lamiVUDine 100 mg Oral Daily PRN Meds:.ondansetron, bisacodyl, bisacodyl, HYDROmorphone, pneumococcal Physical Examination: Vitals: Last value Range last 24 hrs Temperature Temp: 37 ??C (98.6 ??F) Temp: [36.4 ??C (97.5 ??F)-37 ??C (98.6 ??F)] Heart Rate Heart Rate: 71 Heart Rate: [63-72] Blood Pressure BP: 131/54 mmHg BP: (126-144)/(50-64) Respiratory Rate Resp: 16 Resp: [16] SpO2 SpO2: 94 % SpO2: [93 %-97 %] Intake/Output Summary (Last 24 hours) at 03/06/13 1407 Last data filed at 03/06/13 1200 Gross per 24 hour Intake 4328.33 ml Output 1950 ml Net 2378.33 ml Gen: patient lying in bed in NAD HEENT: sclera with patchy icterus, MMM CV: RRR no m/r/g Pulm: CTAB Abd: NT/ND, no HSM Ext: 1+ pitting edema on right diminished, radial, DP pulses intact Skin: jaundiced Neuro/MS: AOx3, conversant w/o evidence of AMS Laboratory: Recent Labs Basename 03/06/1341803/05/1345603/04/13 1330 WBC 8.7 8.3 7.1 HGB 12.7 11.5 13.5 PLATELET 98* 97* 103* Recent Labs Basename 03/06/1341803/05/1345603/04/13 1657 NA 136 137 139 K 4.0 4.2 3.6 CL 109* 109* 107 CO2 21* 21* 24 BUN 11 16 17 CREATININE Not Perf 0.66* 0.62* Recent Labs Basename 03/06/1341803/05/1345603/04/13 1657 CALCIUM 7.6* 7.2* 7.9* MAGNESIUM 0.67* -- -- PHOS 2.6 -- -- Recent Labs Basename 03/06/13 0419 03/05/13 0457 03/04/13 1330 AST 777* 835* 1063* ALT 815* 827* 1046* ALKPHOS 136* 124* 146* BILITOT 16.2* 16.5* 20.2* BILIDIR >10.0 >10.0 >10.0* Recent Labs Basename 03/06/13 0419 03/05/13 1200 03/04/13 1330 PT 22.4* 23.0* 23.2* INR 1.9* 2.0* 2.0* PTT -- -- 46* Assessment: 62 year old woman who presents with acute hepatitis B, admitted for further monitoring and initiation of lamivudine, who now has improving symptoms and continued downtrending of LFTs, except ALP increasing. Coags (INR 1.9) today and subsequently will check daily. Continuing on lamuvidine. Generally appears to be doing well and may be appropriate for discharge tomorrow if INR trending down. Will need appropriate f/u and outpatient management. Appreciate GI input. Plan: #Acute Hepatitis B c/Liver Failure -Appreciate GI consult -Lamivudine 100 mg daily -Monitor for developing hepatic encephalopathy c/serial neurologic exams -Avoid hepatotoxins including acetaminophen, etc -Trend LFTs, INR -Consider hepatitis A vaccination series -Hepatitis D titers: pending -reportable disease to CDC Nausea/Vomiting/Dehydration .att-improving, taking adequate PO -d/c IV fluids LE Edema -no DVT on duplex, likely 2/2 hypoalbuminemia Hypomagnesemia -MgO 400 BID Routine -SCDs for VTE ppx given bleeding risk, tcp -PPI ppx for now -Encourage ambulation -Pneumovax and Influenza Immunizations given as needed -Discussed Advanced Directives and Code Status. The patient wishesto be Full Code. , Rodolfo, is medical decision maker. ABBEY LOPEZ MD 03/06/2013 #3580 [facility] Medicine Service Attending Documentation I certify that the patient requires: [X] inpatient care status due to treatment for acute HBV infection Please see Dr. Lopez's note for details of the patient history of presentation and data. I have discussed, reviewed and agree with the documented History, Physical findings, Assessment and Plan of care. I have examined the patient myself and personally reviewed all studies. Additions to the history, physical, assessment and plan include the following: Patient with improving strength and mobility and was able to ambulate around the unit without assistance. On exam, patient with less RUQ pain to palpation. Total bilirubin slightly improved to 16.2 and INR slightly down as well to 1.9. Will continue PO lamivudine per GI recommendations and if LFT's and coags continue to improve tomorrow, would plan for discharge to home with close GI/liver follow-up. Fausto Angel MD - 03/05/2013 10:19 AM EST Inpatient Hospital Medicine Progress Note ID: 62 y.o. female with R flank pain, N/V, jaundice, found to have acute hep B Hospital Day 1 day Active Problems: #acute hepatitis B #elevated INR #hyperbilirubinemia #hypoalbuminemia 24 hour Events/Subjective: - no major events - patient reports continued improvement of symptoms, taking POs w/o difficulty - DVT study neg Active Drips: Continuous Infusions: ??? dextrose 5% and sodium chloride 0.45% with potassium chloride 20 mEq 100 mL/hr (03/05/13 0137) Active Medications: Scheduled Meds: ??? sodium chloride 0.9 % 5 mL Intravenous Q12H ??? melatonin 3 mg Oral Nightly ??? lactulose 30-60 mL Oral Daily ??? esomeprazole 40 mg Oral Daily ??? multivitamin 1 tablet Oral Daily ??? [COMPLETED] potassium chloride 40 mEq Oral Once ??? lamiVUDine 100 mg Oral Daily ??? [DISCONTINUED] lamiVUDine 100 mg Oral Daily ??? [DISCONTINUED] lamiVUDine 100 mg Oral Q12H WILFRED PRN Meds:.ondansetron, bisacodyl, bisacodyl, HYDROmorphone, pneumococcal Physical Examination: Vitals: Last value Range last 24 hrs Temperature Temp: 36.8 ??C (98.2 ??F) Temp: [36.8 ??C (98.2 ??F)-37.1 ??C (98.8 ??F)] Heart Rate Heart Rate: 70 Heart Rate: [62-72] Blood Pressure BP: 139/58 mmHg BP: (124-143)/(51-59) Respiratory Rate Resp: 16 Resp: [16] SpO2 SpO2: 94 % SpO2: [93 %-98 %] Intake/Output Summary (Last 24 hours) at 03/05/13 1019 Last data filed at 03/05/13 0814 Gross per 24 hour Intake 3036.67 ml Output 800 ml Net 2236.67 ml Gen: patient lying in bed in NAD HEENT: NC/AT, sclera with patchy icterus, MMM, no oral cavity lesions CV: RRR no m/r/g Pulm: CTAB Abd: S NT ND, no masses palpated Ext: wwp, 1+ pitting edema bilaterally, distal pulses intact Skin: jaundiced Neuro/MS: patient alert and interactive, no evidence of AMS/encephalopathy Laboratory: Recent Labs Basename 03/05/13 0457 03/04/13 1330 WBC 8.3 7.1 HGB 11.5 13.5 PLATELET 97* 103* Recent Labs Basename 03/05/13 0457 03/04/13 1657 NA 137 139 K 4.2 3.6 CL 109* 107 CO2 21* 24 BUN 16 17 CREATININE 0.66* 0.62* Recent Labs Basename 03/05/13 0457 03/04/13 1657 CALCIUM 7.2* 7.9* MAGNESIUM -- -- PHOS -- -- Recent Labs Basename 03/05/13 0457 03/04/13 1330 AST 835* 1063* ALT 827* 1046* ALKPHOS 124* 146* BILITOT 16.5* 20.2* BILIDIR >10.0 >10.0* Recent Labs Basename 03/04/13 1330 PT 23.2* INR 2.0* PTT 46* Assessment: 62 year old woman who presents with acute hepatitis B, admitted for further monitoring and initiation of lamivudine, who now has improving symptoms and continued downtrending of LFTs. Coags not checkedtoday so will obtain set today and subsequently check daily. Continuing on lamuvidine. Generally appears to be doing well and may be appropriate for discharge in upcoming days if INR trending down. Will need appropriate f/u and outpatient management. Appreciate GI input. Plan: Acute Hepatitis B c/Liver Failure -Appreciate GI consult -Lamivudine 100 mg daily -Monitor for developing hepatic encephalopathy c/serial neurologic exams -Avoid hepatotoxins including acetaminophen, etc -Trend LFTs, INR -Consider hepatitis A vaccination series Nausea/Vomiting/Dehydration -improving, taking POs, cont symptomatic management as needed LE Edema - no DVT on duplex, likely 2/2 hypoalbuminemia Routine -SCDs for VTE ppx given bleeding risk, tcp -PPI ppx for now -Encourage ambulation -Pneumovax and Influenza Immunizations given as needed -Discussed Advanced Directives and Code Status. The patient wishesto be Full Code. , Rodolfo, is medical decision maker. REJI PRECIADO MD 03/05/2013 #0490 Hospital Medicine Service Attending Documentation I certify that the patient requires: [X] inpatient care status due to management and treatment for acute liver failure from HBV infection Please see Dr. Preciado' note for details of the patient history of presentation and data. I have discussed, reviewed and agree with the documented History, Physical findings, Assessment and Plan of care. I have examined the patient myself and personally reviewed all studies. Additions to the history, physical, assessment and plan include the following: Patient with unchanged INR this AM at 2.0 with some improvements in AST and ALT and total bili. Continuing lamivudine per GI recommendations at this time, trending LFT's and coags and awaiting improvement in coags before consideration for discharge and continuation of outpatient treatment. documented in this encounter H&P Notes Marichuy Lopez - 03/04/2013 12:52 PM EST [facility] Problem List: Active Hospital Problems Diagnosis ??? Viral hepatitis B acute Resolved Hospital Problems Diagnosis Date Resolved No resolved problems to display. Active Non-Hospital Problems Diagnosis ??? Acute hepatitis ID: 62 y.o. Female presents to [facility] with R flank pain, nausea, vomiting, jaundice, fatigue x 1 week History of Present Illness: HPI 62 leticia c/h/o PVD, htn, former smoker, otherwise healthy, initially presented to her chiropractor 02/24 c/new-onset R back/flank pain. At that time, it was noted she was jaundiced, and suggested see herprimary care provider. On 02/26/13, she was seen at [facility] ED for NB/NB nausea/vomting, worsening jaundice, malaise, and fatigue. She was started on promethazine and potassium, and her home rx were discontinued. Labs at that time included INR 1.8, K 3.2, BUN 22, Display Card Writer 1.5, Glucose 213, Calc 7.7, Cifryrkdk82.1, Conj bilirubin 10.47, AST 1056, ALT 1328, Alk Phosph 233, Tot prot 5.3, Alb 2.4. CT of her abdomen demonstrated dilated intrahepatic biliary ducts and gallbladder distension; u/s demonstrated normal appearing liver including biliary system, and mildly distended GB. Hepatitis B IgM core antibody and surface antigen were positive. She was referred to GI clinic for further evaluation. Other labs including hepatitis B viral DNA were reportedly sent and pending. No etiology of how she may have contracted hepatitis was determined as she denies new sexual partners, previous blood transfusions, needle sticks, etc. Her was tested today and his serologies are pending. Review of Systems: Review of Systems Constitutional: Positive for chills, activity change (atigue), appetite change and fatigue. Negative for fever and diaphoresis. HENT: Negative. Respiratory: Negative. Cardiovascular: Leg swelling: R > L. Gastrointestinal: Positive for nausea, vomiting and constipation (chronic). Negative for blood in stool, abdominal distention, anal bleeding and rectal pain. Diarrhea: did have a few episodes earlier in week, non-bloody, now resolved. Genitourinary: Positive for flank pain (Right). Negative for urgency and hematuria. Decreased urine volume: urine dark. Musculoskeletal: Positive for back pain (Right) and gait problem (She feels clumsy). Skin: Positive for color change (jaundiced). Neurological: Positive for dizziness (when arising from seated position) and light-headedness. Negative for tremors, seizures, syncope, facial asymmetry, speech difficulty, weakness, numbness and headaches. Hematological: Bruises/bleeds easily. Psychiatric/Behavioral: Positive for sleep disturbance (chronic and well- controlled on melatonin). Negative for confusion. also sclericterus R ankle swelling without pain or erythema Past Medical and Surgical History: Past Medical History Diagnosis Date ??? Hypertension ??? Constipation ??? Dyslipidemia ??? Peripheral vascular disease ??? Insomnia Past Surgical History Procedure Date ??? Hysterectomy Prior To Admission Medications: She is currently taking only potassium chloride 40 mEQ PO daily and promethazine 12.5 mg PO BID PRN n/v, and vitamin K 2.5 mg PO daily. The below list represents her home meds, all of which she stopped1 week ago: Prescriptions prior to admission Medication Sig Dispense Refill ??? CALCIUM ORAL Take 600 mg by mouth 3 times daily. ??? amlodipine (NORVASC) 10 mg tablet Take 10 mg by mouth daily. ??? simvastatin (ZOCOR) 20 mg tablet Take 20 mg by mouth nightly. ??? gabapentin (NEURONTIN) 400 mg capsule Take 400 mg by mouth nightly. ??? doxazosin (CARDURA) 2 mg tablet Take 2 mg by mouth nightly. ??? citalopram (CELEXA) 20 mg tablet Take 20 mg by mouth nightly. ??? melatonin 3 mg Tab Take by mouth nightly. ??? lubiprostone (AMITIZA) 8 mcg capsule Take 16 mcg by mouth daily. ??? CIS Free Text Med - [id number] ??? CALCIUM ORAL ??? Potassium 99 mg Tab ??? multivitamin capsule ??? aspirin 325 mg tablet Allergies: No Known Allergies Family History: Family History Problem Relation Age of Onset ??? Cancer Mother ??? Chronic Obstructive Pulmonary Disease Father Social History and Habits: History Social History ??? Marital Status: Spouse Name: N/A Number of Children: N/A ??? Years of Education: N/A Occupational History ??? Not on file. Social History Main Topics ??? Smoking status: Never Smoker ??? Smokeless tobacco: Not on file ??? Alcohol Use: Yes a few glasses of wine, rarely 4 times a year ??? Drug Use: No ??? Sexually Active: Not on file Other Topics Concern ??? Blood Transfusions No ??? 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 Physical Exam: Last Set of Vitals and range of vitals over past 24 hours: Last value Range last 24 hrs Temperature Temp: 36.8 ??C (98.2 ??F) Temp: [36.8 ??C (98.2 ??F)] Heart Rate Heart Rate: 62 Heart Rate: [62-74] Blood Pressure BP: 130/51 mmHg BP: (130-137)/(51-57) Respiratory Rate Resp: 16 Resp: [16] SpO2 SpO2: 98 % SpO2: [98 %] Physical Exam General - NACPD, A+O x 3, pleasant, interactive HEENT - NC/AT, MM dry, +sclericterus and sublingual jaundice CV - RRR S1 S2, systolic murmur 2/6 nonradiating, heard best at L>R USB L - CTAB, no w/r/r GI - Soft, NT, ND, NABS, liver margin non-palpable, but percusses in normal span. No splenomegaly. No fluid wave. No spider angiomata, caput Ext - no c/c; 1+ pitting edema R> L LE to ankle/mid-allen. No palmar erythema. B/l LEs c/palpable DP and PT pulses, warm and well perfused Neuro - A+O x 3, CN 2-12 intact, strength 5/5 to b/l U+L extremities, Babinski's downgoing b/l, sensation intact to light touch throughout, no asterixis, no dysdiadochkinesis, no dysmetria Derm - markedly jaundiced though no spider angiomata, caput, etc Laboratory (Last 24 Hours): Recent Results (from the past 24 hour(s)) CBC (WITH DIFF) Component Value Range WBC 7.1 4.0 - 10.0 x10(3)/mcL RBC 4.29 3.93 - 5.22 x10(6)/mcL Hemoglobin 13.5 11.2 - 15.7 gm/dL Hematocrit 37.1 34.0 - 45.0 % MCV 86.5 79.0 - 94.0 fL MCH 31.5 26.6 - 32.2 pg MCHC 36.4 32.0 - 36.5 gm/dL Platelets 103 (*) 145 - 370 x10(3)/mcL RDWSD 58.8 (*) 35.0 - 46.0 fL RDWCV 18.8 (*) 10.9 - 14.4 % MPV Not Measured 9.0 - 12.0 fL HEPATIC FUNCTION PANEL Component Value Range Total Protein 4.9 (*) 6.4 - 8.3 gm/dL Albumin 2.7 (*) 3.2 - 5.2 gm/dL AST 1063 (*) 0 - 30 unit/L ALT 1046 (*) 0 - 30 unit/L Alk Phos 146 (*) 40 - 104 unit/L Total Bilirubin 20.2 (*) 0.2 - 1.3 mg/dL Bili, Direct >10.0 (*) 0.0 - 0.3 mg/dL PROTHROMBIN TIME Component Value Range PT 23.2 (*) 12.0 - 15.0 sec INR 2.0 (*) 0.9 - 1.1 APTT Component Value Range PTT 46 (*) 25 - 35 sec HEPATITIS B CORE ANTIBODY, TOTAL Component Value Range Hep B Core Ab Positive (*) Negative HIV Component Value Range HIV 1/2 Ab Negative Negative AMMONIA Component Value Range Ammonia 38 11 - 51 mcmol/L HEPATITIS B SURFACE ANTIBODY Component Value Range HepB Surface Ab Negative HEPATITIS C ANTIBODY Component Value Range Hepatitis C Ab Negative Negative DIFFERENTIAL, AUTOMATED Component Value Range Neutrophils % 49.9 34.0 - 71.0 % Neutr Abs (ANC) 3.53 1.50 - 6.30 x10(3)/mcL Lymphocytes % 25.5 19.0 - 53.0 % Lymphocytes Abs 1.8 1.0 - 3.6 x10(3)/mcL Monocytes % 12.6 4.0 - 13.0 % Monocyte Abs 0.9 0.2 - 1.0 x10(3)/mcL Eosinophils % 10.3 (*) 0.0 - 7.0 % Eosinophils Abs 0.7 (*) 0.0 - 0.5 x10(3)/mcL Basophils % 1.3 0.0 - 2.0 % Basophils Abs 0.1 0.0 - 0.2 x10(3)/mcL Immature Gran % 0.40 0.00 - 0.66 % Blanca Gran Abs 0.03 0.00 - 0.05 x10(3)/mcL HEPATITIS A ANTIBODY, TOTAL Component Value Range Hepatitis A Ab Negative Negative URINALYSIS WITH MICROSCOPIC Component Value Range Glucose UA 70 (*) Negative mg/dL Protein UA Negative Bilirubin UA Large (*) Negative mg/dL Urobilinogen UA 8.0 (*) Normal mg/dL pH UA 6.5 5.0 - 8.0 Blood UA Negative Ketones UA Negative Nitrite UA Negative Leukocytes UA Small (*) Neg Appearance UA Clear Clear Spec [place] UA 1.013 1.002 - 1.030 Color UA Dark Yellow Yellow RBC UA <1 0 - 4 /HPF WBC UA 7 (*) 0 - 5 /HPF Bacteria UA Rare (*) None /HPF Squam Epith UA 6 (*) <=4 /HPF Trans Epith UA 1 <=1 /HPF Hyaline Cast UA 5 (*) 0 - 2 /LPF BASIC METABOLIC PANEL (NON-FASTING) Component Value Range Glucose Lvl 116 60 - 199 mg/dL BUN 17 8 - 18 mg/dL Creatinine 0.62 (*) 0.70 - 1.20 mg/dL Sodium 139 135 - 145 mmol/L Potassium 3.6 3.5 - 5.0 mmol/L Chloride 107 98 - 107 mmol/L CO2 24 22 - 31 mmol/L Anion Gap 8 5 - 15 mmol/L Calcium 7.9 (*) 8.5 - 10.5 mg/dL Estimated GFR >60 >=60 Microbiology: Hep B DNA, Eag and Eab, Hep D and Hep E, and autoimmune markers were drawn yesterday at [facility] and are pending 03/04/2013 13:30 HIV 1/2 Ab Negative Hepatitis A Ab Negative HepB Surface Ab Negative Hep B Core Ab Positive (A) Hepatitis C Ab Negative Radiology: See HPI and scanned docs in EHD - incidentally, her infrarenal AAA is stable in size since 2009 imaging here Assessment: 62 leticia c/h/o remote tobacco abuse, htn, PVD, admitted c/acute hepatitis B of unclear acquisition, admitted to initiate lamivudine c/close monitoring for developing of hepatic encephalopathy, also dehydrated 2/2 n/v requiring IVF. I certify that the patient requires: inpatient care status due to acute decompensated liver failure c/acute hepatitis B virus, admitting to initiate antiviral therapy, dehydrated requiring IVF. Plan: Admit to [facility] Medicine pager [phone] Acute Hepatitis B c/Liver Failure -Appreciate GI consult -Lamivudine per GI -Monitor for developing hepatic encephalopathy c/serial neurologic exams -Avoid hepatotoxins including acetaminophen, etc -Trend LFTs, INR -Consider hepatitis A vaccination series Nausea/Vomiting/Dehydration -IVF -Replete electrolytes and monitor -Anti-emetics prn -PPI ppx given INR and ongoing nausea R>L LE Edema -Suspect 2/2 hypoalbuminemia and her underlying vascular disease -Check duplex RLE for VTE Systems Issues -SCDs for VTE ppx given bleeding risk, tcp -PPI ppx for now -Encourage ambulation -Pneumovax and Influenza Immunizations given as needed -Discussed Advanced Directives and Code Status. The patient wishesto be Full Code. , Rodolfo, is medical decision maker. A copy of this document will be sent to the patient's Primary Care Physician and/or Referring Physician. MARICHUY LOPEZ MD 03/04/2013 documented in this encounter Miscellaneous Notes Initial Assessments - Esthela Nicole, PT - 03/07/2013 4:25 PM EST Physical Therapy Evaluation Patient profile: Patient is a 62 y.o. female adm from home to [facility] on 03/04/[address] Angel, 2' rightflank pain, nausea, vomiting, jaundice, and fatigue x 1 week. W/u revealed acute Hepatitis B of an as of yet unknown source. PMH: Past Medical History Diagnosis Date ??? Hypertension ??? Constipation ??? Dyslipidemia ??? Peripheral vascular disease ??? Insomnia ??? Renal artery stenosis R; per 2009 angiogram ??? AAA (abdominal aortic aneurysm) [id number] angiogram; 3.2 cm infrarenal Past Surgical History Procedure Date ??? Hysterectomy Social History/Prior Level of Function: Pt lives with her supportive in a private home. 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 Stairs at home: 2 MIRZA Equipment at home: none Precautions/Special Considerations: full code Subjective: Overall i really can't complain... I was shocked when they told me what was going on Objective: Pt was seen for initial assessment Pain: denies Vital Signs: Sp02: 99% on RA HR: 80s BP: nt Mental Status/Behavior: A+O x 4, pleasant Strength: WFL ROM: WFL Sensation: grossly intact to LT Skin: no evidence of irritation or breakdown, + jaundice Posture: WFL Bed Mobility: independent Transfers: 1. Sit <-> Stand independent without AD Gait: 2. Pt. ambulated unlimited distances independently Balance: WF Education: Role of PT, POC, Goals of Rx, Anticipated D/c recommendations, home safety/fall prevention Patient status, treatment, and mobility recommendations discussed with nursing/pt/family. Assessment: Pt presents to physical therapy at or very near baseline functional mobility status. At present pt without significant skilled PT need. Pt should continue to mobilize Independently without AD required. Please re-consult if further needs arise. Plan/Discharge Recommendations: Pt has demonstrated sufficient independence and safety for d/c to home from PT perspective, when medically appropriate. Total time spent with patient: 15 minutes Total timed interventions: 0 minutes (Brief Eval) Pager: [phone] Esthela Nicole PT Physical Therapy Rehabilitation Department Discharge Summary - Fausto Angel MD - 03/07/2013 2:40 PM EST Inpatient - Discharge Summary Patient Name: Pretty Harmon Patient Age: 62 y.o. Birthdate: 1950 Admit date: 03/04/2013 Discharge date and time: 03/07/13 Attending Physician: Fausto Angel MD Follow-up Recommendations for Providers: 1) patient d/c'd on lamivudine for acute hep B w/ f/u planned in hepatology clinic at [facility] 2) will have LFTs and INR drawn on 03/09 and 03/11, sent to [facility] GI dept 3) ASA has been restarted at 81 mg dosing (was on 325 previously) 4) simvastatin held for now because of liver disease 5) f/u [place] labs (Hep B DNA, Hep E, Hep D); further Hep B labs per GI 6) recommend basic labs (CBC, BMP) in 1-2 weeks Discharge Diagnoses (Hospital Problems) and Secondary Diagnoses (Chronic Problems): Active Hospital Problems Diagnosis ??? Viral hepatitis B acute Resolved Hospital Problems Diagnosis Date Resolved No resolved problems to display. Active Non-Hospital Problems Diagnosis ??? Acute hepatitis Operations/Major Procedures: none History of Presentation: (per admission H+P) 62 leticia c/h/o PVD, htn, former smoker, otherwise healthy, initially presented to her chiropractor 02/24 c/new-onset R back/flank pain. At that time, it was noted she was jaundiced, and suggested see herprimary care provider. On 02/26/13, she was seen at [facility] ED for NB/NB nausea/vomting, worsening jaundice, malaise, and fatigue. She was started on promethazine and potassium, and her home rx were discontinued. Labs at that time included INR 1.8, K 3.2, BUN 22, Display Card Writer 1.5, Glucose 213, Calc 7.7, Bwejsgdba41.1, Conj bilirubin 10.47, AST 1056, ALT 1328, Alk Phosph 233, Tot prot 5.3, Alb 2.4. CT of her abdomen demonstrated dilated intrahepatic biliary ducts and gallbladder distension; u/s demonstrated normal appearing liver including biliary system, and mildly distended GB. Hepatitis B IgM core antibody and surface antigen were positive. She was referred to GI clinic for further evaluation. Other labs including hepatitis B viral DNA were reportedly sent and pending. No etiology of how she may have contracted hepatitis was determined as she denies new sexual partners, previous blood transfusions, needle sticks, etc. Hospital Course: Acute hepatitis B: The patient was admitted to medicine with supportive care, close monitoring, and lamivudine as antiviral treatment of her acute hep B. The cause of her aldo hep B remained unclear, and her tested negative for the virus. Over the course of her admission her LFTs began downtrending. Of par ticular note, the INR remained initially stable at 2.0, but declined to 1.9 the day prior to discharge and 1.8 on the day of discharge. Her other LFTs also trended downward over the course of the admission. Additionally her symptoms improved, with decreased nausea, pain, and fatigue. Prior to discharge she was able to ambulate and take POs. No signs of hepatic encephalopathy throughout admission. Shewas discharged with close follow-up plans with primary care and hepatology. Will continue lamivudinein outpatient setting and have labs drawn 03/09 and 03/11, which will be sent to GI at [facility]. Important Studies and Lab Data: Labs: CBC data Ref. Range 03/04/2013 13:30 03/05/2013 04:57 03/06/2013 04:19 03/07/2013 04:47 WBC 7.1 8.3 8.7 8.5 RBC 4.29 3.72 (L) 4.09 4.01 Hemoglobin 13.5 11.5 12.7 12.9 Hematocrit 37.1 32.2 (L) 36.0 40.0 MCV 86.5 86.6 88.0 85.5 MCH 31.5 30.9 31.1 32.2 MCHC 36.4 35.7 35.3 32.2 RDWSD 58.8 (H) 59.2 (H) 60.9 (H) 60.7 (H) RDWCV 18.8 (H) 18.8 (H) 19.2 (H) 19.7 (H) Platelets 103 (L) 97 (L) 98 (L) 84 (L) Coags Ref. Range 03/04/2013 13:30 03/05/2013 12:00 03/06/2013 04:19 03/07/2013 04:47 PT 23.2 (H) 23.0 (H) 22.4 (H) 21.7 (H) INR 2.0 (H) 2.0 (H) 1.9 (H) 1.8 (H) Chem Ref. Range 03/04/2013 13:30 03/04/2013 16:57 03/05/2013 04:57 03/06/2013 04:19 03/07/2013 04:47 Sodium 139 137 136 137 Potassium 3.6 4.2 4.0 4.3 Chloride 107 109 (H) 109 (H) 108 (H) CO2 24 21 (L) 21 (L) 22 Anion Gap 8 7 6 7 BUN 17 16 11 11 Creatinine 0.62 (L) 0.66 (L) Not Perf 0.71 Estimated GFR >60 >60 Not Calculated >60 Glucose Lvl 116 115 117 68 Calcium 7.9 (L) 7.2 (L) 7.6 (L) 7.8 (L) Magnesium 0.67 (L) 0.72 Phosphorus 2.6 2.9 Total Protein 4.9 (L) 4.2 (L) 4.4 (L) 4.4 (L) Albumin 2.7 (L) 2.2 (L) 2.2 (L) 2.3 (L) Total Bilirubin 20.2 (H) 16.5 (H) 16.2 (H) 16.3 (H) Bili, Direct >10.0 (H) >10.0 >10.0 >10.0 Alk Phos 146 (H) 124 (H) 136 (H) 131 (H) AST 1063 (H) 835 (H) 777 (H) 775 (H) ALT 1046 (H) 827 (H) 815 (H) 745 (H) DVT study 03/04 neg Pending Studies and Lab Data: The patient will need the following 3 tests completed on: 03/04/2013 1. Hepatitis B DNA, quantitative, PCR 3. HBV Quant 2. Hepatitis Delta Virus Ab Total Authorizing Provider: Marichuy Lopez MD Discharge Conditions/Prognosis: stable Discharge to: home Discharge Medications: Current Discharge Medication List New Meds Dose Details lactulose (CHRONULAC) 20 gram/30 mL solution 20 g Take 30 mLs by mouth daily as needed. Qty: 200 mL Refills: 5 lamiVUDine (EPIVIR) 100 mg tablet 100 mg Take 1 tablet by mouth daily. Qty: 60 tablet Refills: 5 magnesium oxide (MAG-OX) 400 mg tablet 400 mg Take 1 tablet by mouth daily. Qty: 30 tablet Refills: 5 aspirin 81 mg EC tablet 81 mg Take 1 tablet by mouth daily. Qty: 30 tablet Refills: 3 omeprazole (PRILOSEC OTC) 20 mg tablet 20 mg Take 1 tablet by mouth daily. Qty: 30 tablet Refills: 11 ondansetron (ZOFRAN) 4 mg tablet 4 mg Take 1 tablet by mouth every 8 hours as needed for Nausea. Qty: 30 tablet Refills: 1 Continued medications, unchanged Dose Details melatonin 3 mg Tab Take by mouth nightly. Medications STOPPED Dose potassium chloride (K-DUR/KLOR-CON) 20 mEq extended release tablet 40 mEq promethazine (PHENERGAN) 25 mg tablet 12.5 mg phytonadione (MEPHYTON) 5 mg tablet 2.5 mg aspirin 325 mg tablet 325 mg simvastatin (ZOCOR) 20 mg tablet 20 mg Potassium 99 mg Tab multivitamin capsule amlodipine-benazepril (LOTREL) 10-20 mg per capsule Calcium Carbonate (TUMS) 300 mg (750 mg) Chew Updated Allergies/ADRs: No Known Allergies Instructions Given to Patient at Discharge: Provider Instructions Instruction after leaving the hospital Why you were hospitalized: hepatitis B infection Call your doctor or seek medical attention if you develop the following: worsening fatigue, abdominal pain, nausea, vomiting, fevers, chills, decreased urine output, or any other worsening, new or concerning symptoms Activity level: you can gradually return to normal activities as tolerated Diet: recommend a full nutritious diet Driving: recommend against driving until you are feeling back to normal Shower/Bath: with caution if fatigued Wound Care: n/a Home Oxygen therapy: n/a Specific instructions related to your condition: Please have your blood drawn for Liver Function Tests and Coagulation Factors on Thursday, Mar 09 and Mar 11 at [place]. These results should be faxed to the Gastroenterology Clinic at [facility],Attn: Annmarie Rico, . (The order for this is attached in these instructions) You will be called about an appointment in hepatology clinic. If you do not hear from the clinic in the next few days please call [facility] at [phone], ask for hepatology (or gastroenterology), and speak with the clinical nurse. Please follow-up with your PCP, Dr. Maico Jones, on Friday, March 08, 2013 at 10:30am. It is okay to re-start your aspirin. However, we would recommend an 81mg dose with follow-up with your PCP. Although hepatitis B is not typically spread by contact, it would be reasonable to recommend that your family members get vaccinated and could consider testing to ensure they do not have hepatitis B. We have prescribed you lamivudine for your hepatitis. 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 Your Inpatient Doctor(s) at [facility]: (inpatient hospital medicine team) Dr. Lopez, Dr. Angel, Dr. Preciado, Dr. Lopez, Dr. Kamara General Instructions None Future Appointments and Orders Future Orders Please Complete By Expires Hepatic Function Panel [LAB20 Custom] 03/09/13 03/07/14 Process Instructions: INCLUDES: T Protein, Alb, AST, ALT, Alk Phos, T Bili, D Bili Scheduling Instructions: Comments: Please fax results to Gastroenterology Clinic at [facility], Attn: Annmarie Jacky, . Questions: Responses: Should this service/procedure be billed to the research sponsor? Hepatic Function Panel [LAB20 Custom] 03/11/13 03/07/14 Process Instructions: INCLUDES: T Protein, Alb, AST, ALT, Alk Phos, T Bili, D Bili Scheduling Instructions: Comments: Please fax results to Gastroenterology Clinic at [facility], Attn: Annmarie Rico, . Questions: Responses: Should this service/procedure be billed to the research sponsor? Prothrombin Time [QKA132 Custom] 03/09/13 03/07/14 Process Instructions: Scheduling Instructions: Comments: Please fax results to Gastroenterology Clinic at [facility], Attn: Annmarie Rico, . Questions: Responses: Should this service/procedure be billed to the research sponsor? Prothrombin Time [XLH430 Custom] 03/11/13 03/07/14 Process Instructions: Scheduling Instructions: Comments: Please fax results to Gastroenterology Clinic at [facility], Attn: Annmarie Rico, . Questions: Responses: Should this service/procedure be billed to the research sponsor? Discharge References/Attachments: Discharge References/Attachments None Inpatient Provider Contact Information: [phone] Electronically Signed By: REJI PRECIADO MD 03/07/2013 Plan of Care - Rigo Rivera RN - 03/06/2013 1:37 PM EST Problem: Trauma/Injury Risk (Adult, Obstetric) Goal: Trauma/Injury Risk: Absence of Trauma/Injury/Falls Pt compliant with call light to request assistance with IV pole to allow ambulation to BR. Pt with steady, symmetrical gait while up in room and ambulating off the floor with family. Current fall prevention program in place for this shift. Med Student Progress Note - Nani Carver Shruthi - 03/06/2013 8:28 AM EST Inpatient Hospital Medicine - Progress Note Admit Date: 03/04/2013 Hospital Day 2 days 24 Hour Events: No acute overnight events. Ambulating by herself to bathroom. Showered. Had a bowel movement this morning that was brown/infante without blood. Urine dark yellow. Subjective: Ms. Harmon states that she is feeling better. She has less malaise and has not vomited, although she still has some mild nausea. Denies any medication side effects. Ins: PO 1580mL IV 2398.3mL Outs: Urine 1950mL Physical Exam: Last Set of Vitals and range of vitals over past 24 hours: Last value Range last 24 hrs Temperature Temp: 37 ??C (98.6 ??F) Temp: [36.8 ??C (98.2 ??F)-37 ??C (98.6 ??F)] Heart Rate Heart Rate: 65 Heart Rate: [62-70] Blood Pressure BP: 130/50 mmHg BP: (126-141)/(50-61) Respiratory Rate Resp: 16 Resp: [16] SpO2 SpO2: 93 % SpO2: [93 %-97 %] Physical Exam Gen: Awake, alert and oriented x3, comfortable. HEENT: EOMI, icteric sclerae CV: RRR, Normal S1 and S2, murmur not audible on auscultation today Pulm: LCAB, good air movement Abd: Soft, non-distended, non-tender to palpation Skin: Significant jaundice seen over entire body Exrem: Decreased edema in lower extremities bilaterally, significantly less swollen on right. Less than 1+ edema. Neuro: No tremor. No episodes of confusion, disorientation, or falls. Laboratory (Last 24 Hours): WBC 8.7 Hgb 12.7 Hct 36.0 Plts 98 Neuts 47.3% Lymphs 26.2% ANC 4.12 Plat Estimate Decreased RBC morph Abnormal Target cells 1-5 PT 22.4 INR 1.9 Na 136 K 4.0 Cl 109 CO2 21 BUN 11 Display Card Writer Not perf (0.66 yesterday) Gluc 117 Calc 7.6 Mag 0.67 Phosph 2.6 Tot Prot 4.4 Alb 2.2 Tot Bili 16.2 Bili Dir 10+ Alk Phosph 136 AST 777 (down from 835) ALT 815 (down from 827) HIV 1/2 AB Negative Hep A Ab Negative HepB surf Ab Negative HebB Suf Ag Positive HepB core Ab Positive Hep C Ab Negative Radiology: Abdominal Ultrasound 03/03/13: Unremarkable appearance of liver. Pancreas is incompletely visualized.No evidence of biliary dilation. No evidence of cholelithiasis. Kidneys unremarkable. Gallbladder ismildly distended without evidence of cholelithiasis. CT Abdomen/Pelvis w/o contrast 02/26/13: Biliary dilatation, intrahepatic and probably extra hepatic,with marked gallbladder distention and gallbladder wall thickening. Pancreatic mass not excluded. Assessment: Ms. Harmon is a 62 y/o F who presented with nausea, vomiting, fatigue and jaundice and laboratory values significant for elevated total and direct bilirubin, alk phosph, AST and ALT. This is consistent with an acute hepatitis and laboratory tests have come back positive for Hep B core IgM antibody and Hep B surface antigen. We are seeing a trend downward in abnormal laboratory values back towards normal. Patient has had no side effects with lamivudine. Plan: # Acute Hepatitis B c/Liver Failure -Appreciate GI consult - treatment with Lamivudine for 1 year with monitoring for seroconversion of HBeAg, monitor LFTs every 3months, HBV DNA levels every 3- 6months. Want to discuss discharge plan with GI regarding home aspirin, necessary follow-up. -Lamivudine 100 mg daily -Monitor for developing hepatic encephalopathy - if there are any mental status changes, start lactulose -Avoid hepatotoxins including acetaminophen, etc -Trend LFTs, INR daily -Consider hepatitis A vaccination series #Nausea/Vomiting/Dehydration -improving with no episodes of emesis -ondansetron 4mg every 8hrs prn -Stop fluids as she is now taking good PO #LE Edema - improved - no DVT on duplex - most likely due to fluid shifts secondary to hypoalbuminemia # Prophylaxis -SCDs for VTE ppx given bleeding risk, tcp -esomeprazole 40mg daily -Encourage ambulation -PT/OT requested to see her tomorrow for safe discharge planning/formal activity assessment -Discussed Advanced Directives and Code Status. The patient wishes to be Full Code. , Rodolfo, is medical decision maker. Nani Carver 03/06/2013 Medical Student, Year 3 [employer] Plan of Care - Cherelle Quinn RN - 03/06/2013 5:37 AM EST Problem: Trauma/Injury Risk (Adult, Obstetric) Goal: Trauma/Injury Risk: Absence of Trauma/Injury/Falls Patient ambulating independently in room. Steady gait observed. Safety maintained. Plan of Care - Judy Gann RN - 03/05/2013 6:25 PM EST Problem: Pain, Acute (Adult, Obstetric) Goal: Acute Pain: Acceptable Pain Control/Comfort Level - Pain, Acute (Adult, Obstetric) Patient denies any pain or SOB. Patient up to bathroom independently. Family in to visit. Patient ambulated with around unit. Patient complains of nausea resolved with Zofran. Miscellaneous - Provider, Scanning - 03/05/2013 3:13 PM EST Plan of Care - Tricia Sears - 03/05/2013 7:52 AM EST Problem: Pain, Acute (Adult, Obstetric) Goal: Acute Pain: Acceptable Pain Control/Comfort Level - Pain, Acute (Adult, Obstetric) Outcome: Absent and monitoring 2300-07 No indicatiofn of pain with staff inquiries during the shift, VS WDL, afeb; slept the majority of the shift - easily arousable. Problem: Trauma/Injury Risk (Adult, Obstetric) Goal: Trauma/Injury Risk: Absence of Trauma/Injury/Falls Outcome: Absent and monitoring Remained nyasia bed during the noc, sleeping. Problem: Skin Integrity Impairment, Risk/Actual (Adult, Obstetric) Goal: Skin Integrity Impairment, Risk/Actual: Skin Integrity/Wound Healing Outcome: Absent and monitoring Skin with some jaundice; indep with ADLs and reported amb @ room. Consult Note - Eliezer Munoz MD - 03/05/2013 7:24 AM EST [facility] Section of Gastroenterology and Hepatology Initial Inpatient Consultation Patient Name: Pretty Harmon : 1950 Referring provider: Dr. Lopez Date of Consult: 03/05/13 Reason for Consult: Acute hep B management History of Present Illness: Pretty Harmon is a 62 y.o. F with PMH of HTN, PVD, HLP, Constipation, AAA present from Hepatology clinic for management for elevated transamintis found to have acute Hep B infection. Pt was well until 02/24 when present to her chiropractor 02/24 with complaints of R back/flank pain and notice to be jaundiced by chiropractor who suggested for patient to see her PCP. On 02/26/13 she present to OSH with complaints of N/V, worsening jaundice, progressive fatigue/maliase. Labs check at that time showed INR 1.8, TBili 13.1, Dbili:10.4, AST 1056, ALT 1328, Alk Phos 233, T.P 5.3, Alb 2.4. CT abd/pelvis done showed moderate intrahepatic biliary dilatation with probable extra hepatic biliary dilatation and CBD: 7-8mm, gallbladder is distended/hydropic and appeared mildly thickened.US abdomen done also showed mild gallbladder distension without evidence of cholelithiasis or gallbladder wall thickening. Further labs revealed Hep B IgM core ab and surface antigen were positive. Shewas subsequently referred to GI clinic hepatology clinic for further evaluation. She reports that she traveled to [place] from 02/08-02/12, she denies eating raw seafood or unusual foods. She also travelled to [facility] from 01/21-01/23 eat salad however again denied any raw food. She denies any recent med changes, new sexual partner, needle stick, blood transfusion. On admission found tohave worsening transaminitis with AST/ALT: 1063/1046 Tbili: 20 Dbili: >10 Alk phos: 146. T.P: 4.9/ Albumin: 2.7, INR: 2.0 admitted overnight from GI clinic with plan of started lamivudine. Reports Currently she denies any confusion, +easy bruisability, bleeding gums, lower extremity edema, melena, hematochezia, abdominal distention. # Acute Hep B infection -presented to OSH with malaise, fatigue, N/V -labs: INR 1.8, TBili 13.1, Dbili:10.4, AST 1056, ALT 1328, Alk Phos 233, T.P 5.3, Alb 2.4. -Hep B IgM core ab and surface antigen were positive -03/03/13: CT abd/plevis showed moderate intrahepatic biliary dilatation with probable extra hepatic biliary dilatation and CBD: 7-8mm, gallbladder is distended/hydropic and appeared mildly thickened with no acute cholecystitis -03/03: OSH: US abdomen done also showed mild gallbladder distension without evidence of cholelithiasis or gallbladder wall thickening. CBD: 7mm -Admitted: 03/05: AST/ALT: 1063/1046 Tbili: 20, DBili: >10. T.P: 4.9 Alb: 2.7 INR: 2.0 -03/06: AST/ALT: 853/827, Alk phos: 146 T.bili: 16 Dbili: >10. INR not checked Review of Systems: Constitutional: - weight loss, +fatgiue, +malaise HEENT: no visual changes, no URI symptoms Cardio: no chest pain Resp: no SOB, wheezing or cough Heme: denies easy bruising GI: see HPI N/V no abdominal pain, no melena or hematochezia, +easy bruisability : no dysuria Integumentary: no new rashes Musculoskeletal: no new joint pains Neuro: no new numbness, weakness in extremities All other systems negative except as above in HPI Past Medical History Diagnosis Date ??? Hypertension ??? Constipation ??? Dyslipidemia ??? Peripheral vascular disease ??? Insomnia ??? Renal artery stenosis R; per 2009 angiogram ??? AAA (abdominal aortic aneurysm) [id number] angiogram; 3.2 cm infrarenal Past Surgical History Procedure Date ??? Hysterectomy Social History: reports that she has quit smoking. She quit smokeless tobacco use about 7 months ago. She reports that she drinks alcohol. She reports that she does not use illicit drugs. Family History: family history includes Cancer in her mother and Chronic Obstructive Pulmonary Disease in her father. Denies any family hx of liver disease No Known Allergies Prescriptions prior to admission Medication Sig Dispense Refill ??? potassium chloride (K-DUR/KLOR-CON) 20 mEq extended release tablet Take 40 mEq by mouth daily. ??? promethazine (PHENERGAN) 25 mg tablet Take 12.5 mg by mouth 2 times daily as needed. ??? phytonadione (MEPHYTON) 5 mg tablet Take 2.5 mg by mouth daily. ??? simvastatin (ZOCOR) 20 mg tablet Take 20 mg by mouth nightly. ??? melatonin 3 mg Tab Take by mouth nightly. ??? Potassium 99 mg Tab ??? multivitamin capsule Current meds: ??? sodium chloride 0.9 % 5 mL Intravenous Q12H ??? melatonin 3 mg Oral Nightly ??? lactulose 30-60 mL Oral Daily ??? esomeprazole 40 mg Oral Daily ??? multivitamin 1 tablet Oral Daily ??? [COMPLETED] potassium chloride 40 mEq Oral Once ??? lamiVUDine 100 mg Oral Daily ??? [DISCONTINUED] lamiVUDine 100 mg Oral Daily ??? [DISCONTINUED] lamiVUDine 100 mg Oral Q12H WILFRED Physical exam: Filed Vitals: 03/05/13 0353 BP: 129/59 Pulse: 72 Temp: 36.8 ??C (98.2 ??F) Resp: 16 Gen: jaundice, pleasant, NAD HEENT: +sclera icterus CVS s1 s2 no m/r/g LUNG; CTABL anteriorly ABD: soft/NT/BS+ no HSM, no stigmata of chronic liver disease Ext; no c/c/e Skin: no rash NEuro: no asterixis, [id number] able to answer questions appropriately Labs: Lab Results Component Value Date Sodium 137 03/05/2013 Potassium 4.2 03/05/2013 Chloride 109* 03/05/2013 CO2 21* 03/05/2013 BUN 16 03/05/2013 Creatinine 0.66* 03/05/2013 Glucose Lvl 115 03/05/2013 Lab Results Component Value Date ALT 827* 03/05/2013 AST 835* 03/05/2013 ALKPHOS 124* 03/05/2013 BILITOT 16.5* 03/05/2013 Lab Results Component Value Date WBC 8.3 03/05/2013 HGB 11.5 03/05/2013 HCT 32.2* 03/05/2013 MCV 86.6 03/05/2013 PLATELET 97* 03/05/2013 Radiology: As above Endoscopy: as above Impression: Pretty Harmon is a 62 y.o. F with PMH of HTN, PVD, HLP, Constipation, AAA present from acute Hep B infection with current MELD: 30. Unsure how she got Hep B infection (denies any high risk behavior). Review of her CT although with non-contrast does not show any CBD dilation and no evidence of significant intra/extrahpeatic dilation from my read and review with radiology. She was started on lamivudine yesterday improvement in her liver function test and with no evidence of encephalopathy. Reason for lamivudine is more rapid and more potent virus suppression with low cost and oral dose. Patient are usually treated for at least 1 year with monitor for seroconversion of HBeAg. Regarding outpatient management: LFT's are usually monitor q 3 months and HBV DNA levels check 3-6 months while on therapy. The HBeAgand anti-HBe tested at the end of 1 year of treatment and every 3-6 months thereafter. Treatment is usually discontinued in patients who have confirmed HBeAg seroconversion (HBeAg loss and anti-HBe detection on 2 occasions 1-3 months apart) and have completed at least 6 months of therapy after the appearance of anti-HBe.Respond to treatment is usually 70% to 90%. However viral relapse and exacerbations of hepatitis may occur after discontinuation of lamivudine therapy therefore patients are usually closely monitored (every 1-3 months for the first 6 months, andevery 3-6 months thereafter). If evidence of relapse usually different anti-viral is used if resistant to lamivudine. Recommendations: # please continue lamivudine 100mg daily # please check LFT's, PT/INR daily # monitor for signs of encephalopathy if evidence start lactulose 30mg TID (3- 4BM per day) # monitor electrolytes specifically (K, Mg, phos and replete can precipitate encephalopathy) # F/u Hep B DNA, Hep Eag/Eab, Hep D and autoimmune markers were drawn yesterday at [facility] # will continue to follow along with you. Patient was seen and discussed with Dr. Eliezer Munoz Recommendations reviewed with Primary team. Abimbola Olson MD Gastroenterology Fellow Pager: [phone] Addendum: Pt seen with and discussed with Dr Olson. I agree with her complete and thorough note as writtenabove. Acute Hep B with marked decompensation/JAQUELINE including elevated INR but no evidence of fulminant hepatic failure given no encephalopathy. Her TB is 18 from 20 yesterday, her glucose is normal and she overall is feeling better on lamuvidine, but the big question is her INR which has not been collected yet today - we need this and this was discussed with the team. We are watching as an inpt if she develops fulminant disease which is based in part on her actual liver function (not enzymes). Progression of disease would need consideration of liver transplant. Med Student H&P - Yuearceliavarun Nani C - 03/04/2013 4:38 PM EST Inpatient Hospital Medicine - Medical Student Admission Note ID: 62 y.o. Female with PMH of HTN and vascular disease presents to [facility] with approximately one week history of nausea, vomiting, jaundice, and fatigue. History of Present Illness: HPI Mrs. Harmon presented to a chiropractor on 02/24/13 ago for new-onset back pain. At this appointment, the chiropractor noted significant yellowing of the skin and eyes and suggested that Mrs. Harmon see her primary care provider. Her also noted the yellowing at the same time. Mrs. Harmon went to [facility] emergency department two days later, on 02/26/13, for worsening jaundice, malaise, and fatigue.She was feel nauseated and vomiting multiple times each day. Emesis was white in color. Anti-emetic medication helped. She had no other pain except in her lower back and right flank. Vitals were normal. Jaundice noted, without liver shock tenderness or abdominal masses. Abnormal labs: INR 1.8 w/o anticoag, K 3.2, BUN 22, Display Card Writer 1.5, Glucose 213, Calc 7.7, Bilirubin 13.1, Conj bilirubin 10.47, AST 1056, ALT 1328, Alk Phosph 233, Tot prot 5.3, Alb 2.4. ER physician recommended further work-up with PCP, who had repeated lab values obtained and recommended a visit to GI clinic. She is being admitted from the GI clinic today. Review of Systems: Review of Systems Gen: Positive for anorexia secondary to n/v, feeling cold within past week (usually runs warm). Denies fevers, night sweats. HEENT: Denies headaches, dizziness, or light-headedness. CV: Denies chest pain Pulm: Denies cough, difficulty breathing, recent upper respiratory illness, GI: Positive for bloating (past few months), chronic constipation. : Positive for dark colored urine. Skin: Positive for easy bruising since starting aspirin 2yrs ago. Extrem:Swollen ankles/feet, worse on Right. Denies arthritis, myalgias. Neuro: Positive for poor balance upon standing (recent change), numbness and tingling down anterior legs (chronic). Denies alterations in gait, confusion, disorientation, memory lapses (and agrees). Psych: Past Medical and Surgical History: # hypertension # constipation # hyperlipidemia # peripheral vascular disease # nerve pain # renal artery stenosis, Right side- 2010 angiogram # AAA, 3.2 cm infrarenal, per 2010 angiogram Past Surgical History: Hysterectomy, 1983, no reactions to anesthesia and no complications Prior To Admission Medications: Has only taken permethazine and potassium this past week due to daily n/v. Aspirin 325mg daily Calcium 600mg three times daily Potassium daily Osteo-biflex daily Amlodipine 10mg daily Simvastatin 20mg daily Gabapentin 400mg daily Doxazosin mesylate 2mg daily Citalopram 20mg daily Melatonin 2mg nightly Amitiza 8mg twice daily Vitamin permethazine Allergies: No Known Allergies Family History: Denies heart, kidney, thyroid, liver disease or diabetes. Social History and Habits: Lives near [place], [place] with . 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 They have two children. Daughter lives nearby and son is in [place]. Recently traveled with son to [place]. Also recent travel to [facility]. No pets or animals at home. She and her are occasionally sexually active. No other partners. Former smoker, quit 10 years ago. Smoked 1/2 pack/d since high school. Infrequent alcohol use, ~ four drinks each year. No illicit drug use. was treated for prostate cancer a few years ago. Possible immunosuppression. No known history of blood products or plasma transfusions. Immunizations: Unlisted. Physical Exam: Last Set of Vitals and range of vitals over past 24 hours: Last value Range last 24 hrs Temperature Temp: 36.8 ??C (98.2 ??F) Temp: [36.8 ??C (98.2 ??F)] Heart Rate Heart Rate: 62 Heart Rate: [62-74] Blood Pressure BP: 130/51 mmHg BP: (130-137)/(51-57) Respiratory Rate Resp: 16 Resp: [16] SpO2 SpO2: 98 % SpO2: [98 %] Physical Exam Gen: Yellow, in no acute distress, fatigued, alert and oriented x 3 HEENT: NCAT, PERRL, EOMI, scleral icterus, sublingual jaundice, no lymphadenopathy, trachea midline CV: 2/6 systolic ejection murmur heard best at upper left sternal border. Regular rate and rhythm. No JVD. Pulm: Lungs clear to auscultation bilaterally. Abd: Tender to palpation at right flank and lower back. Soft, non-tender in four anterior quadrants,non-distended. Liver edge not palpable. Spleen not palpable. Bowel sounds audible. Extrem: Full range of motion. 2+ pitting edema on right foot, 1+ pitting edema on left foot. Skin: Significant jaundice over entire body. No rashes. Neuro: continuous mining operator in tact except CN I not tested. 5/5 upper and lower extremity strength. Negative babinski, asterixis, dysmetria. Full range of motion. Laboratory (Last 24 Hours): Recent Results (from the past 24 hour(s)) CBC (WITH DIFF) Component Value Range WBC 7.1 4.0 - 10.0 x10(3)/mcL RBC 4.29 3.93 - 5.22 x10(6)/mcL Hemoglobin 13.5 11.2 - 15.7 gm/dL Hematocrit 37.1 34.0 - 45.0 % MCV 86.5 79.0 - 94.0 fL MCH 31.5 26.6 - 32.2 pg MCHC 36.4 32.0 - 36.5 gm/dL Platelets 103 (*) 145 - 370 x10(3)/mcL RDWSD 58.8 (*) 35.0 - 46.0 fL RDWCV 18.8 (*) 10.9 - 14.4 % MPV Not Measured 9.0 - 12.0 fL HEPATIC FUNCTION PANEL Component Value Range Total Protein 4.9 (*) 6.4 - 8.3 gm/dL Albumin 2.7 (*) 3.2 - 5.2 gm/dL AST 1063 (*) 0 - 30 unit/L ALT 1046 (*) 0 - 30 unit/L Alk Phos 146 (*) 40 - 104 unit/L Total Bilirubin 20.2 (*) 0.2 - 1.3 mg/dL Bili, Direct >10.0 (*) 0.0 - 0.3 mg/dL PROTHROMBIN TIME Component Value Range PT 23.2 (*) 12.0 - 15.0 sec INR 2.0 (*) 0.9 - 1.1 APTT Component Value Range PTT 46 (*) 25 - 35 sec HEPATITIS B CORE ANTIBODY, TOTAL Component Value Range Hep B Core Ab Positive (*) Negative HIV Component Value Range HIV 1/2 Ab Negative Negative AMMONIA Component Value Range Ammonia 38 11 - 51 mcmol/L HEPATITIS B SURFACE ANTIBODY Component Value Range HepB Surface Ab Negative HEPATITIS C ANTIBODY Component Value Range Hepatitis C Ab Negative Negative DIFFERENTIAL, AUTOMATED Component Value Range Neutrophils % 49.9 34.0 - 71.0 % Neutr Abs (ANC) 3.53 1.50 - 6.30 x10(3)/mcL Lymphocytes % 25.5 19.0 - 53.0 % Lymphocytes Abs 1.8 1.0 - 3.6 x10(3)/mcL Monocytes % 12.6 4.0 - 13.0 % Monocyte Abs 0.9 0.2 - 1.0 x10(3)/mcL Eosinophils % 10.3 (*) 0.0 - 7.0 % Eosinophils Abs 0.7 (*) 0.0 - 0.5 x10(3)/mcL Basophils % 1.3 0.0 - 2.0 % Basophils Abs 0.1 0.0 - 0.2 x10(3)/mcL Immature Gran % 0.40 0.00 - 0.66 % Blanca Gran Abs 0.03 0.00 - 0.05 x10(3)/mcL HEPATITIS A ANTIBODY, TOTAL Component Value Range Hepatitis A Ab Negative Negative URINALYSIS WITH MICROSCOPIC Component Value Range Glucose UA 70 (*) Negative mg/dL Protein UA Negative Bilirubin UA Large (*) Negative mg/dL Urobilinogen UA 8.0 (*) Normal mg/dL pH UA 6.5 5.0 - 8.0 Blood UA Negative Ketones UA Negative Nitrite UA Negative Leukocytes UA Small (*) Neg Appearance UA Clear Clear Spec [place] UA 1.013 1.002 - 1.030 Color UA Dark Yellow Yellow RBC UA <1 0 - 4 /HPF WBC UA 7 (*) 0 - 5 /HPF Bacteria UA Rare (*) None /HPF Squam Epith UA 6 (*) <=4 /HPF Trans Epith UA 1 <=1 /HPF Hyaline Cast UA 5 (*) 0 - 2 /LPF BASIC METABOLIC PANEL (NON-FASTING) Component Value Range Glucose Lvl 116 60 - 199 mg/dL BUN 17 8 - 18 mg/dL Sodium 139 135 - 145 mmol/L Potassium 3.6 3.5 - 5.0 mmol/L Chloride 107 98 - 107 mmol/L CO2 24 22 - 31 mmol/L Anion Gap 8 5 - 15 mmol/L Calcium 7.9 (*) 8.5 - 10.5 mg/dL [facility] 02/28/13: Hep B Surf Ag: Positive Hep B Core IgM: Positive Hep A AB IgM: Negative HCV Ab Screen: negative Radiology: Abdominal Ultrasound 03/03/13: Unremarkable appearance of liver. Pancreas is incompletely visualized.No evidence of biliary dilation. No evidence of cholelithiasis. Kidneys unremarkable. Gallbladder ismildly distended without evidence of cholelithiasis. CT Abdomen/Pelvis w/o contrast 02/26/13: Biliary dilatation, intrahepatic and probably extra hepatic,with marked gallbladder distention and gallbladder wall thickening. Pancreatic mass not excluded. Assessment: Ms. Harmon is a 62 y/o F with nausea, vomiting, fatigue and jaundice, a 2/6 systolic murmur on physical exam, and laboratory values significant for elevated total and direct bilirubin, alk phosph, AST and ALT. This is consistent with an acute hepatitis and laboratory tests have come back positive for Hep B core IgM antibody and Hep B surface antigen. Plan: 1. Acute Hepatitis B - Per GI recommendations, begin lamivudine 100mg daily if normal kidney function - ondansetron 4mg IV every 8hrs prn - dextrose 5% + NaCl 0.45% with KCl 20 mEq at 100mL/hr 2. R>L lower extremity edema - duplex study 3. Constipation - lactulose 20-40g PO daily, and may help if hepatic encephalopathy occurs 4. Prophylaxis - Restart aspirin if platelet count is normal - start sub cut heparin if platelets normal - SCDs - esomeprazole 5. Regular Diet. 6. Home medications - hold most - maintain melatonin nightly - multivitamin ?? Discussed Advanced Directives and Code Status. The patient wishes to be Full Code. Nani Carver 03/04/2013 Medical Student [facility] documented in this encounter Plan of Treatment Scheduled Procedures Name Priority Associated Diagnoses Date/Time EGD, UPPER GI ENDOSCOPY Gastroesophageal reflux disease, esophagitis presence not specifi ed documented as of this encounter Procedures Procedure Name Priority Date/Time Associated Comments Diagnosis SCAN, PERIPHERAL Routine 03/07/2013 4:47 AM Resul ts for this BLOOD EST procedure are i n the results section. DIFFERENTIAL, Routine 03/07/2013 4:47 AM Results for this AUTOMATED EST procedure are i n the results section. PROTHROMBIN TIME Routine 03/07/2013 4:47 AM Resul ts for this EST procedure are i n the results section. CBC (WITH DIFF) Routine 03/07/2013 4:47 AM Result s for this EST procedure are i n the results section. PHOSPHORUS Routine 03/07/2013 4:47 AM Results f or this EST procedure are i n the results section. MAGNESIUM Routine 03/07/2013 4:47 AM Results f or this EST procedure are i n the results section. HEPATIC FUNCTION Routine 03/07/2013 4:47 AM Resul ts for this PANEL EST procedure are i n the results section. BASIC METABOLIC PANEL Routine 03/07/2013 4:47 AM Results for this (NON-FASTING) EST procedure are in the results section. SCAN, PERIPHERAL Routine 03/06/2013 4:19 AM Resul ts for this BLOOD EST procedure are i n the results section. DIFFERENTIAL, Routine 03/06/2013 4:19 AM Results for this AUTOMATED EST procedure are i n the results section. PROTHROMBIN TIME Routine 03/06/2013 4:19 AM Resul ts for this EST procedure are i n the results section. CBC (WITH DIFF) Routine 03/06/2013 4:19 AM Result s for this EST procedure are i n the results section. PHOSPHORUS Routine 03/06/2013 4:19 AM Results f or this EST procedure are i n the results section. MAGNESIUM Routine 03/06/2013 4:19 AM Results f or this EST procedure are i n the results section. HEPATIC FUNCTION Routine 03/06/2013 4:19 AM Resul ts for this PANEL EST procedure are i n the results section. BASIC METABOLIC PANEL Routine 03/06/2013 4:19 AM Results for this (NON-FASTING) EST procedure are in the results section. PROTHROMBIN TIME Routine 03/05/2013 12:00 Results for this PM EST procedure are i n the results section. DIFFERENTIAL, Routine 03/05/2013 4:57 AM Results for this AUTOMATED EST procedure are i n the results section. CBC (WITH DIFF) Routine 03/05/2013 4:57 AM Result s for this EST procedure are i n the results section. HEPATIC FUNCTION Routine 03/05/2013 4:57 AM Resul ts for this PANEL EST procedure are i n the results section. BASIC METABOLIC PANEL Routine 03/05/2013 4:57 AM Results for this (NON-FASTING) EST procedure are in the results section. BASIC METABOLIC PANEL STAT 03/04/2013 4:57 PM Results for this (NON-FASTING) EST procedure are in the results section. URINALYSIS WITH Routine 03/04/2013 4:36 PM Result s for this REFLEX CULTURE EST procedure are in the results section. HEPATITIS B CORE Routine 03/04/2013 1:45 PM Resul ts for this ANTIBODY, IGM EST procedure are in the results section. DUPLEX FOR DVT, LEG, Routine 03/04/2013 1:33 PM R esults for this UNILAT EST procedure are i n the results section. HEPATITIS DELTA VIRUS Routine 03/04/2013 1:30 PM Results for this AB TOTAL-MARTÍNEZ EST procedure are in the results section. HBV QUANT Routine 03/04/2013 1:30 PM Results f or this EST procedure are i n the results section. HEPATITIS B DNA, Routine 03/04/2013 1:30 PM QUANTITATIVE, PCR EST DIFFERENTIAL, Routine 03/04/2013 1:30 PM Results for this AUTOMATED EST procedure are i n the results section. HEPATITIS C ANTIBODY Routine 03/04/2013 1:30 PM R esults for this EST procedure are i n the results section. HEPATITIS A ANTIBODY, Routine 03/04/2013 1:30 PM Results for this TOTAL EST procedure are i n the results section. HEPATITIS B CORE Routine 03/04/2013 1:30 PM Resul ts for this ANTIBODY, TOTAL EST procedure ar e in the results section. HIV SCREEN, 4TH Routine 03/04/2013 1:30 PM Result s for this GENERATION EST procedure are i n ([facility]/CGP/APD/NLH) the resul ts section. HEPATITIS B SURFACE Routine 03/04/2013 1:30 PM Re sults for this ANTIBODY EST procedure are i n the results section. HEPATITIS B SURFACE Routine 03/04/2013 1:30 PM Re sults for this ANTIGEN EST procedure are i n the results section. APTT Routine 03/04/2013 1:30 PM Results f or this EST procedure are i n the results section. PROTHROMBIN TIME Routine 03/04/2013 1:30 PM Resul ts for this EST procedure are i n the results section. CBC (WITH DIFF) Routine 03/04/2013 1:30 PM Result s for this EST procedure are i n the results section. AMMONIA Routine 03/04/2013 1:30 PM Results f or this EST procedure are i n the results section. HEPATIC FUNCTION Routine 03/04/2013 1:30 PM Resul ts for this PANEL EST procedure are i n the results section. documented in this encounter Results (ABNORMAL) Differential, Automated (03/07/2013 4:47 AM EST) [facility] Method Time Signature Neutrophils % 49.0 34.0 - CERNER 71.0 % MILLENNIUM Neutr Abs (ANC) 4.17 1.50 - CERNER 6.30 MILLENNIUM x10(3)/mc L Lymphocytes % 26.2 19.0 - CERNER 53.0 % MILLENNIUM Lymphocytes Abs 2.2 1.0 - 3.6 CERNER x10(3)/mc MILLENNIUM L Monocytes % 10.8 4.0 - CERNER 13.0 % MILLENNIUM Monocyte Abs 0.9 0.2 - 1.0 CERNER x10(3)/mc MILLENNIUM L Eosinophils % 12.2 (H) 0.0 - 7.0 CERNER % MILLENNIUM Eosinophils Abs 1.0 (H) 0.0 - 0.5 CERNER x10(3)/mc MILLENNIUM L Basophils % 1.4 0.0 - 2.0 CERNER % MILLENNIUM Basophils Abs 0.1 0.0 - 0.2 CERNER x10(3)/mc MILLENNIUM L Immature Gran % 0.40 0.00 - CERNER 0.66 % MILLENNIUM Comment: Immature granulocytes(IG's)percentage an d absolute count will include metamyelocytes, myelocytes, and promyelo cytes. Blood smears from CBCs yielding IG's will be scanned manually for concor dance. If this scan disagrees with the automated IG or if promyelocytes are not ed, a manual differential will be performed. Blanca Gran Abs 0.03 0.00 - 0.05 x10(3)/mcL CER NER MILLENNIUM Specimen Anatomical Collection Method Collection Time Receive d Time (Source) Location / / Volume Laterality Blood specimen 03/07/2013 4:47 AM 013 5:08 (specimen) EST AM EST Marichuy Lopez MD HEMATOLOGY ORDERABLES Performing Organization Address [facility]/ZIP Code Phon e Number [address] CERNER MILLENNIUM Scan, Peripheral Blood (03/07/2013 4:47 AM EST) Patholo gist Method Time Signature Plat Estimate Decreased CERNER MILLENNIUM RBC Morphology Abnormal CERNER MILLENNIUM Target Cells 6-10 /HPF CERNER MILLENNIUM Giant Less than 1 /HPF CERNER Platelets MILLENNIUM Specimen Anatomical Collection Method Collection Time Receive d Time (Source) Location / / Volume Laterality Blood specimen 03/07/2013 4:47 AM 013 5:08 (specimen) EST AM EST Resulting Agency Comment Spec In Lab Marichuy Lopez MD HEMATOLOGY ORDERABLES Performing Organization Address City/State/ZIP Code Phon e Number [address] CERNER MILLENNIUM Phosphorus (03/07/2013 4:47 AM EST) P athologist Signature Phosphorus 2.9 2.5 - 4.5 CERNER mg/dL MILLENNIUM Specimen Anatomical Collection Method Collection Time Receive d Time (Source) Location / / Volume Laterality Blood specimen 03/07/2013 4:47 AM 013 5:08 (specimen) EST AM EST Resulting Agency Comment Spec In Lab Fausto Angel MD CHEMISTRY ORDERABLES Performing Organization Address City/[facility]/[place] [address] CERNER MILLENNIUM Magnesium (03/07/2013 4:47 AM EST) P athologist Signature Magnesium 0.72 0.69 - 1.07 CERNER mmol/L MILLENNIUM Specimen Anatomical Collection Method Collection Time Receive d Time (Source) Location / / Volume Laterality Blood specimen 03/07/2013 4:47 AM 013 5:08 (specimen) EST AM EST Resulting Agency Comment Spec In Lab Fausto Angel MD CHEMISTRY ORDERABLES Performing Organization Address City/[facility]/ZIP Code Phon e Number [address] CERNER MILLENNIUM (ABNORMAL) Prothrombin Time (03/07/2013 4:47 AM EST) P athologist Signature PT 21.7 (H) 12.0 - 15.0 CERNER sec MILLENNIUM Comment: [facility] Transfusion Committee Guidelines: I NR less than 2.0, PTT less than OR equal to 43.5 seconds, or Fibrinogen gre ater than or equal to 100 mg/dl indicate adequate procoagulant activity for hemostasis in patients without underlying bleeding disorders. INR 1.8 (H) 0.9 - 1.1 CERNER MILLENNIUM Specimen Anatomical Collection Method Collection Time Receive d Time (Source) Location / / Volume Laterality Blood specimen 03/07/2013 4:47 AM 013 5:08 (specimen) EST AM EST Resulting Agency Comment Spec In Lab Fausto Angel MD HEMATOLOGY ORDERABLES Performing Organization Address City/[facility]/ZIP Code Phon e Number [address] CERNER MILLENNIUM (ABNORMAL) Hepatic Function Panel (03/07/2013 4:47 AM EST) Analysis Performed At Patho logist Time Signature Total Protein 4.4 (L) 6.4 - 8.3 CERNER gm/dL MILLENNIUM Albumin 2.3 (L) 3.2 - 5.2 CERNER gm/dL MILLENNIUM AST 775 (H) 0 - 30 CERNER unit/L MILLENNIUM ALT 745 (H) 0 - 30 CERNER unit/L MILLENNIUM Alk Phos 131 (H) 40 - 104 CERNER unit/L MILLENNIUM Total 16.3 (H) 0.2 - 1.3 CERNER Bilirubin mg/dL MILLENNIUM Bili, Direct >10.0 0.0 - 0.3 CERNER mg/dL MILLENNIUM Specimen Anatomical Collection Method Collection Time Receive d Time (Source) Location / / Volume Laterality Blood specimen 03/07/2013 4:47 AM 013 5:08 (specimen) EST AM EST Resulting Agency Comment Spec In Lab Marichuy Lopez MD CHEMISTRY ORDERABLES Performing Organization Address City/State/ZIP Code Phon e Number [place] [id number] CERNER MILLENNIUM (ABNORMAL) Basic Metabolic Panel (non-fasting) (03/07/2013 4:47 AM EST) athologist Signature Glucose Lvl 68 60 - 199 CERNER mg/dL MILLENNIUM Comment: Diabetes: >=200 mg/dL plus symp toms BUN 11 8 - 18 mg/dL CERNER MILLENNIUM Creatinine 0.71 0.70 - 1.20 mg/dL CERNER MILL ENNIUM Comment: Please note that the pediatric reference intervals supplied above were not validated at [facility]. Results from pediatri c patients should be interpreted in conjunction to the patient's age, height and muscle mass. Sodium 137 135 - 145 mmol/L CERNER BECKY NIUM Potassium 4.3 3.5 - 5.0 mmol/L CERNER BECKY NIUM Comment: Please note: ??Patients with WBC >100,00 0 may have falsely elevated Potassium levels. ??For accurate Potassium quantif ication in these patients send serum separator tube (gold top) for subsequent determinations. ??Contact the Clinical Chemistry Laboratory if there are any qu estions. Chloride 108 (H) 98 - 107 mmol/L CERNER MILLENN IUM CO2 22 22 - 31 mmol/L CERNER MILLENNI UM Anion Gap 7 5 - 15 mmol/L CERNER MILLENNIU M Calcium 7.8 (L) 8.5 - 10.5 mg/dL CERNER BECKY NIUM Estimated GFR >60 >=60 CERNER MILLENNIU M Comment: This estimated [...] Location / / Volume Laterality Blood specimen 03/07/2013 4:47 AM 013 5:08 (specimen) EST AM EST Resulting Agency Comment Spec In Lab Marichuy Lopez MD CHEMISTRY ORDERABLES Performing Organization Address City/State/[place] [address] CERNER MILLENNIUM (ABNORMAL) CBC (with Diff) (03/07/2013 4:47 AM EST) P athologist Signature WBC 8.5 4.0 - 10.0 CERNER x10(3)/mcL MILLENNIUM RBC 4.01 3.93 - 5.22 CERNER x10(6)/mcL MILLENNIUM Hemoglobin 12.9 11.2 - 15.7 CERNER gm/dL MILLENNIUM Hematocrit 40.0 34.0 - 45.0 CERNER % MILLENNIUM Comment: MANUAL HCT MCV 85.5 79.0 - 94.0 fL CERNER MILLENNI UM MCH 32.2 26.6 - 32.2 pg CERNER MILLENNI UM MCHC 32.2 32.0 - 36.5 gm/dL BANNERNER MILLE NNIUM Platelets 84 (L) 145 - 370 x10(3)/mcL CERNER UT LLENNIUM RDWSD 60.7 (H) 35.0 - 46.0 fL BANNERNER MILLENNI UM RDWCV 19.7 (H) 10.9 - 14.4 % DEION TREVIZOIU M MPV Not Measured 9.0 - 12.0 fL DEION BECKY NIUM Specimen Anatomical Collection Method Collection Time Receive d Time (Source) Location / / Volume Laterality Blood specimen 03/07/2013 4:47 AM 013 5:08 (specimen) EST AM EST Resulting Agency Comment Spec In Lab Marichuy Lopez MD HEMATOLOGY ORDERABLES Performing Organization Address City/State/[place] [address] CERNER MILLENNIUM (ABNORMAL) Differential, Automated (03/06/2013 4:19 AM EST) [facility] gist Method Time Signature Neutrophils % 47.3 34.0 - CERNER 71.0 % MILLENNIUM Neutr Abs (ANC) 4.12 1.50 - CERNER 6.30 MILLENNIUM x10(3)/mc L Lymphocytes % 26.2 19.0 - CERNER 53.0 % MILLENNIUM Lymphocytes Abs 2.3 1.0 - 3.6 CERNER x10(3)/mc MILLENNIUM L Monocytes % 11.1 4.0 - CERNER 13.0 % MILLENNIUM Monocyte Abs 1.0 0.2 - 1.0 CERNER x10(3)/mc MILLENNIUM L Eosinophils % 13.4 (H) 0.0 - 7.0 CERNER % MILLENNIUM Eosinophils Abs 1.2 (H) 0.0 - 0.5 CERNER x10(3)/mc MILLENNIUM L Basophils % 1.5 0.0 - 2.0 CERNER % MILLENNIUM Basophils Abs 0.1 0.0 - 0.2 CERNER x10(3)/mc MILLENNIUM L Immature Gran % 0.50 0.00 - CERNER 0.66 % MILLENNIUM Comment: Immature granulocytes(IG's)percentage an d absolute count will include metamyelocytes, myelocytes, and promyelo cytes. Blood smears from CBCs yielding IG's will be scanned manually for concor dance. If this scan disagrees with the automated IG or if promyelocytes are not ed, a manual differential will be performed. Blanca Gran Abs 0.04 0.00 - 0.05 x10(3)/mcL CER NER MILLENNIUM Specimen Anatomical Collection Method Collection Time Receive d Time (Source) Location / / Volume Laterality Blood specimen 03/06/2013 4:19 AM 013 4:36 (specimen) EST AM EST Marichuy Lopez MD HEMATOLOGY ORDERABLES Performing Organization Address City/State/[place] [address] CERNER MILLENNIUM Scan, Peripheral Blood (03/06/2013 4:19 AM EST) Patholo gist Method Time Signature Plat Estimate Decreased CERNER MILLENNIUM RBC Morphology Abnormal CERNER MILLENNIUM Target Cells 1-5 /HPF CERNER MILLENNIUM Specimen Anatomical Collection Method Collection Time Receive d Time (Source) Location / / Volume Laterality Blood specimen 03/06/2013 4:19 AM 4:36 (specimen) EST AM EST Resulting Agency Comment Spec In Lab Marichuy Lopez MD HEMATOLOGY ORDERABLES Performing Organization Address City/[facility]/[place] [address] CERNER MILLENNIUM Phosphorus (03/06/2013 4:19 AM EST) P athologist Signature Phosphorus 2.6 2.5 - 4.5 CERNER mg/dL MILLENNIUM Specimen Anatomical Collection Method Collection Time Receive d Time (Source) Location / / Volume Laterality Blood specimen 03/06/2013 4:19 AM 013 4:36 (specimen) EST AM EST Resulting Agency Comment Spec In Lab Fausto Angel MD CHEMISTRY ORDERABLES Performing Organization Address City/[facility]/[place] [address] CERNER MILLENNIUM (ABNORMAL) Magnesium (03/06/2013 4:19 AM EST) P athologist Signature Magnesium 0.67 (L) 0.69 - 1.07 CERNER mmol/L MILLENNIUM Specimen Anatomical Collection Method Collection Time Receive d Time (Source) Location / / Volume Laterality Blood specimen 03/06/2013 4:19 AM 013 4:36 (specimen) EST AM EST Resulting Agency Comment Spec In Lab Fausto Angel MD CHEMISTRY ORDERABLES Performing Organization Address City/State/[place] [address] CERNER MILLENNIUM (ABNORMAL) Prothrombin Time (03/06/2013 4:19 AM EST) P athologist Signature PT 22.4 (H) 12.0 - 15.0 CERNER sec MILLENNIUM Comment: [facility] Transfusion Committee Guidelines: I NR less than 2.0, PTT less than OR equal to 43.5 seconds, or Fibrinogen gre ater than or equal to 100 mg/dl indicate adequate procoagulant activity for hemostasis in patients without underlying bleeding disorders. INR 1.9 (H) 0.9 - 1.1 CERNER MILLENNIUM Specimen Anatomical Collection Method Collection Time Receive d Time (Source) Location / / Volume Laterality Blood specimen 03/06/2013 4:19 AM 013 4:36 (specimen) EST AM EST Resulting Agency Comment Spec In Lab Fausto Angel MD HEMATOLOGY ORDERABLES Performing Organization Address City/[facility]/[place] [address] CERNER MILLENNIUM (ABNORMAL) Hepatic Function Panel (03/06/2013 4:19 AM EST) Analysis Performed At Patho logist Time Signature Total Protein 4.4 (L) 6.4 - 8.3 CERNER gm/dL MILLENNIUM Albumin 2.2 (L) 3.2 - 5.2 CERNER gm/dL MILLENNIUM AST 777 (H) 0 - 30 CERNER unit/L MILLENNIUM ALT 815 (H) 0 - 30 CERNER unit/L MILLENNIUM Alk Phos 136 (H) 40 - 104 CERNER unit/L MILLENNIUM Total 16.2 (H) 0.2 - 1.3 CERNER Bilirubin mg/dL MILLENNIUM Bili, Direct >10.0 0.0 - 0.3 CERNER mg/dL MILLENNIUM Specimen Anatomical Collection Method Collection Time Receive d Time (Source) Location / / Volume Laterality Blood specimen 03/06/2013 4:19 AM 013 4:36 (specimen) EST AM EST Resulting Agency Comment Spec In Lab Marichuy Lopez MD CHEMISTRY ORDERABLES Performing Organization Address City/[facility]/[place] [address] CERNER MILLENNIUM (ABNORMAL) Basic Metabolic Panel (non-fasting) (03/06/2013 4:19 AM EST) athologist Signature Glucose Lvl 117 60 - 199 CERNER mg/dL MILLENNIUM Comment: Diabetes: >=200 mg/dL plus symp toms BUN 11 8 - 18 mg/dL CERNER MILLENNIUM Creatinine Not Perf 0.70 - 1.20 mg/dL CERNER MILL ENNIUM Comment: Interfering substance or substances pres ent Please note that the pediatric reference intervals supplied above were not validated at [facility]. Results from pediatri c patients should be interpreted in conjunction to the patient's age, height and muscle mass. Sodium 136 135 - 145 mmol/L CERNER BECKY NIUM [...] Chloride 109 (H) 98 - 107 mmol/L CERNER MILLENN IUM CO2 21 (L) 22 - 31 mmol/L CERNER MILLENNI UM Anion Gap 6 5 - 15 mmol/L CERNER MILLENNIU M Calcium 7.6 (L) 8.5 - 10.5 mg/dL CERNER BECKY NIUM Estimated GFR Not Calculated >=60 CERNER MILL ENNIUM Comment: This estimated GFR (eGFR) value was [...] Location / / Volume Laterality Blood specimen 03/06/2013 4:19 AM 013 4:36 (specimen) EST AM EST Resulting Agency Comment Spec In Lab Marichuy Lopez MD CHEMISTRY ORDERABLES Performing Organization Address City/[facility]/[place] [address] CERNER MILLENNIUM (ABNORMAL) CBC (with Diff) (03/06/2013 4:19 AM EST) Patholo gist Method Time Signature WBC 8.7 4.0 - 10.0 CERNER x10(3)/mcL MILLENNIUM RBC 4.09 3.93 - CERNER 5.22 MILLENNIUM x10(6)/mcL Hemoglobin 12.7 11.2 - CERNER 15.7 gm/dL MILLENNIUM Hematocrit 36.0 34.0 - CERNER 45.0 % MILLENNIUM MCV 88.0 79.0 - CERNER 94.0 fL MILLENNIUM MCH 31.1 26.6 - CERNER 32.2 pg MILLENNIUM MCHC 35.3 32.0 - CERNER 36.5 gm/dL MILLENNIUM Platelets 98 (L) 145 - 370 CERNER x10(3)/mcL MILLENNIUM RDWSD 60.9 (H) 35.0 - CERNER 46.0 fL MILLENNIUM RDWCV 19.2 (H) 10.9 - CERNER 14.4 % MILLENNIUM MPV Not Measured 9.0 - 12.0 CERNER fL MILLENNIUM Specimen Anatomical Collection Method Collection Time Receive d Time (Source) Location / / Volume Laterality Blood specimen 03/06/2013 4:19 AM 4:36 (specimen) EST AM EST Resulting Agency Comment Spec In Lab Marichuy Lopez MD HEMATOLOGY ORDERABLES Performing Organization Address City/[facility]/[place] [address] CERNER MILLENNIUM (ABNORMAL) Prothrombin Time (03/05/2013 12:00 PM EST) P athologist Signature PT 23.0 (H) 12.0 - 15.0 CERNER sec MILLENNIUM Comment: [facility] Transfusion Committee Guidelines: I NR less than 2.0, PTT less than OR equal to 43.5 seconds, or Fibrinogen gre ater than or equal to 100 mg/dl indicate adequate procoagulant activity for hemostasis in patients without underlying bleeding disorders. INR 2.0 (H) 0.9 - 1.1 CERNER MILLENNIUM Specimen Anatomical Collection Method Collection Time Receive d Time (Source) Location / / Volume Laterality Blood specimen 03/05/2013 12:00 3 (specimen) PM EST 12:07 PM EST Resulting Agency Comment Spec In Lab Fausto Angel MD HEMATOLOGY ORDERABLES Performing Organization Address City/[facility]/ZIP Code Phon e Number [address] CERNER MILLENNIUM (ABNORMAL) Hepatic Function Panel (03/05/2013 4:57 AM EST) Analysis Performed At Patho logist Time Signature Total Protein 4.2 (L) 6.4 - 8.3 CERNER gm/dL MILLENNIUM Albumin 2.2 (L) 3.2 - 5.2 CERNER gm/dL MILLENNIUM AST 835 (H) 0 - 30 CERNER unit/L MILLENNIUM ALT 827 (H) 0 - 30 CERNER unit/L MILLENNIUM Alk Phos 124 (H) 40 - 104 CERNER unit/L MILLENNIUM Total 16.5 (H) 0.2 - 1.3 CERNER Bilirubin mg/dL MILLENNIUM Bili, Direct >10.0 0.0 - 0.3 CERNER mg/dL MILLENNIUM Specimen Anatomical Collection Method Collection Time Receive d Time (Source) Location / / Volume Laterality Blood specimen 03/05/2013 4:57 AM 013 5:04 (specimen) EST AM EST Resulting Agency Comment Spec In Lab Marichuy Lopez MD CHEMISTRY ORDERABLES Performing Organization Address City/[facility] [place] [address] CERNER MILLENNIUM (ABNORMAL) Differential, Automated (03/05/2013 4:57 AM EST) Patholo gist Method Time Signature Neutrophils % 45.0 34.0 - CERNER 71.0 % MILLENNIUM Neutr Abs (ANC) 3.74 1.50 - CERNER 6.30 MILLENNIUM x10(3)/mc L Lymphocytes % 29.4 19.0 - CERNER 53.0 % MILLENNIUM Lymphocytes Abs 2.4 1.0 - 3.6 CERNER x10(3)/mc MILLENNIUM L Monocytes % 11.3 4.0 - CERNER 13.0 % MILLENNIUM Monocyte Abs 0.9 0.2 - 1.0 CERNER x10(3)/mc MILLENNIUM L Eosinophils % 12.4 (H) 0.0 - 7.0 CERNER % MILLENNIUM Eosinophils Abs 1.0 (H) 0.0 - 0.5 CERNER x10(3)/mc MILLENNIUM L Basophils % 1.7 0.0 - 2.0 CERNER % MILLENNIUM Basophils Abs 0.1 0.0 - 0.2 CERNER x10(3)/mc MILLENNIUM L Immature Gran % 0.20 0.00 - CERNER 0.66 % MILLENNIUM Comment: [...] Location / / Volume Laterality Blood specimen 03/05/2013 4:57 AM 013 5:02 (specimen) EST AM EST Marichuy Lopez MD HEMATOLOGY ORDERABLES Performing Organization Address City/State/[place] [address] CERNER MILLENNIUM (ABNORMAL) Basic Metabolic Panel (non-fasting) (03/05/2013 4:57 AM EST) P athologist Signature Glucose Lvl 115 60 - 199 CERNER mg/dL MILLENNIUM Comment: Diabetes: >=200 mg/dL plus symp toms BUN 16 8 - 18 mg/dL CERNER MILLENNIUM Creatinine 0.66 (L) 0.70 - 1.20 mg/dL CERNER MILL ENNIUM Comment: Please note that the pediatric reference intervals supplied above were not validated at [facility]. Results from pediatri c patients should be interpreted in conjunction to the patient's age, height and muscle mass. Sodium 137 135 - 145 mmol/L CERNER BECKY NIUM Potassium 4.2 3.5 - 5.0 mmol/L CERNER BECKY NIUM Comment: Please note: ??Patients with WBC >100,00 0 may have falsely elevated Potassium levels. ??For accurate Potassium quantif ication in these patients send serum separator tube (gold top) for subsequent determinations. ??Contact the Clinical Chemistry Laboratory if there are any qu estions. Chloride 109 (H) 98 - 107 mmol/L CERNER MILLENN IUM CO2 21 (L) 22 - 31 mmol/L CERNER MILLENNI UM Anion Gap 7 5 - 15 mmol/L CERNER MILLENNIU M Calcium 7.2 (L) 8.5 - 10.5 mg/dL CERNER BECKY NIUM Estimated GFR >60 >=60 CERNER MILLENNIU M Comment: This estimated [...] Location / / Volume Laterality Blood specimen 03/05/2013 4:57 AM 013 5:02 (specimen) EST AM EST Resulting Agency Comment Spec In Lab Marichuy Lopez MD CHEMISTRY ORDERABLES Performing Organization Address City/State/[place] [address] CERNER MILLENNIUM (ABNORMAL) CBC (with Diff) (03/05/2013 4:57 AM EST) [facility] Method Time Signature WBC 8.3 4.0 - 10.0 CERNER x10(3)/mcL MILLENNIUM RBC 3.72 (L) 3.93 - CERNER 5.22 MILLENNIUM x10(6)/mcL Hemoglobin 11.5 11.2 - CERNER 15.7 gm/dL MILLENNIUM Hematocrit 32.2 (L) 34.0 - CERNER 45.0 % MILLENNIUM MCV 86.6 79.0 - CERNER 94.0 fL MILLENNIUM MCH 30.9 26.6 - CERNER 32.2 pg MILLENNIUM MCHC 35.7 32.0 - CERNER 36.5 gm/dL MILLENNIUM Platelets 97 (L) 145 - 370 CERNER x10(3)/mcL MILLENNIUM RDWSD 59.2 (H) 35.0 - CERNER 46.0 fL MILLENNIUM RDWCV 18.8 (H) 10.9 - CERNER 14.4 % MILLENNIUM MPV Not Measured 9.0 - 12.0 CERNER fL MILLENNIUM Specimen Anatomical Collection Method Collection Time Receive d Time (Source) Location / / Volume Laterality Blood specimen 03/05/2013 4:57 AM 013 5:02 (specimen) EST AM EST Resulting Agency Comment Spec In Lab Marichuy Lopez MD HEMATOLOGY ORDERABLES Performing Organization Address City/State/[place] [address] CERNER MILLENNIUM (ABNORMAL) Basic Metabolic Panel (non-fasting) (03/04/2013 4:57 PM EST) athologist Signature Glucose Lvl 116 60 - 199 CERNER mg/dL MILLENNIUM Comment: Diabetes: >=200 mg/dL plus symp toms BUN 17 8 - 18 mg/dL CERNER MILLENNIUM Creatinine 0.62 (L) 0.70 - 1.20 mg/dL CERNER MILL ENNIUM Comment: Please note that the pediatric reference intervals supplied above were not validated at [facility]. Results from pediatri c patients should be interpreted in conjunction to the patient's age, height and muscle mass. Sodium 139 135 - 145 mmol/L CERNER BECKY NIUM Potassium 3.6 3.5 - 5.0 mmol/L CERNER BECKY NIUM Comment: Please note: ??Patients with WBC >100,00 0 may have falsely elevated Potassium levels. ??For accurate Potassium quantif ication in these patients send serum separator tube (gold top) for subsequent determinations. ??Contact the Clinical Chemistry Laboratory if there are any qu estions. Chloride 107 98 - 107 mmol/L CERNER MILLENN IUM CO2 24 22 - 31 mmol/L CERNER MILLENNI UM Anion Gap 8 5 - 15 mmol/L CERNER MILLENNIU M Calcium 7.9 (L) 8.5 - 10.5 mg/dL CERNER BECKY NIUM Estimated GFR >60 >=60 CERNER MILLENNIU M Comment: This estimated [...] Location / / Volume Laterality Blood specimen 03/04/2013 4:57 PM 013 5:10 (specimen) EST PM EST Resulting Agency Comment Spec In Lab Marichuy Lopez MD CHEMISTRY ORDERABLES Performing Organization Address City/State/ZIP Code Phon e Number [place] [id number] CERNER MILLENNIUM (ABNORMAL) Urinalysis with microscopic (03/04/2013 4:36 PM EST) [facility] Method Time Signature Glucose UA 70 (A) Negative CERNER mg/dL MILLENNIUM Protein UA Negative mg/dL CERNER MILLENNIUM Bilirubin UA Large (A) Negative CERNER mg/dL MILLENNIUM Comment: Clinical correlation required for positi ve Urine Bilirubin results as false positive may occur with some drugs and d rug related products. If a false positive is suspected a serum total bili blandon should be considered if clinically indicated. Urobilinogen UA 8.0 (A) Normal mg/dL CERNER MILL ENNIUM pH UA 6.5 5.0 - 8.0 [facility] Blood UA Negative mg/dL [facility] Ketones UA Negative mg/dL [facility] MILLENNIUM Nitrite UA Negative [facility] MILLENNIUM Leukocytes UA Small (A) Neg [facility] M Appearance UA Clear Clear [facility] M Spec [place] UA 1.013 1.002 - 1.[address] [facility] MIL LENNIUM Color UA Dark Yellow Yellow [facility] RBC UA <1 0 - 4 /HPF [facility] WBC UA 7 (H) 0 - 5 /HPF [facility] Bacteria UA Rare (A) None /HPF [facility] Squam Epith UA 6 (H) <=4 /HPF [facility] UM Trans Epith UA 1 <=1 /HPF [facility] UM Hyaline Cast UA 5 (H) 0 - 2 /LPF [facility] Specimen Anatomical Collection Method Collection Time Receive d Time (Source) Location / / Volume Laterality Urine specimen 03/04/2013 4:36 PM 013 4:57 (specimen) EST PM EST Resulting Agency Comment Spec In Lab Marichuy Lopez MD URINE ORDERABLES Performing Organization Address City/[facility]/ZIP Code Phon e Number [address] [facility] (ABNORMAL) Hepatitis B Core Antibody, IgM (03/04/2013 1:45 PM EST) [facility] Method Time Signature Hep B Core Positive (A) Negative CERBANNER IgM MILLENNIUM Comment: Test Performed by: Martínez Fannect [address], [place] [address] Home Insurance Agent: Harika Vila, Ph. D. Specimen Anatomical Collection Method Collection Time Receive d Time (Source) Location / / Volume Laterality Blood specimen 03/04/2013 1:45 PM 013 2:31 (specimen) EST PM EST Resulting Agency Comment Spec In Lab Marichuy Lopez MD IMMUNOLOGY ORDERABLES Performing Organization Address City/State/[place] [address] [facility] Duplex for DVT, Leg, Unilat (03/04/2013 1:33 PM EST) Component Value Ref Test Analysis Performed At [facility] Range Method Time Signature VB Text [facility] Report Department: Vascular Surgery Lab Patient: [id number] (PRETTY HARMON) CPT Code: 47535 ICD-9: 729.5 Referring Physician: MARICHUY LOPEZ Indication: RIGHT lower extremity pain, ? DVT ICD9 Diagnosis Code: 729.5 RIGHT: Patent common femoral vein and popliteal vein with sp ontaneous, respirophasic Doppler wavefo kp that respond normally to augmentation maneuvers. The common femoral vein, sap henofemoral junction, femoral vein through the thigh and popliteal vein are fully compressible. Patent posterior tibial and peroneal veins with no evidence of thrombus. Interpretation: RIGHT: ??No evidence of lower extremity deep venous thrombos is. Comparison: ??No previous study in our vascular lab da tabase for comparison. Electronically Signed by: ANISA BUCK on 2013-03-05 06:02: 23 PM VB Text End of Report [facility] Report Specimen (Source) Anatomical Collection Method Collection Time Re ceived Time Location / / Volume Laterality 03/04/2013 1:33 PM EST Marichuy Lopez MD VASCULAR ORDERABLES Performing Organization Address City/State/ZIP Code Phon e Number [email or web address] Hepatitis A Antibody, Total (03/04/2013 1:30 PM EST) Analysis Performed At [facility] Hepatitis A Ab Negative Negative [facility] Total ENNIUM Comment: Please note that as of 11/30/2012, the gracia ting methodology for this assay has changed. However there is no change in t he interpretation of the results. Specimen Anatomical Collection Method Collection Time Receive d Time (Source) Location / / Volume Laterality Blood specimen 03/04/2013 1:30 PM 013 1:43 (specimen) EST PM EST Resulting Agency Comment Spec In Lab Marichuy Lopez MD IMMUNOLOGY ORDERABLES Performing Organization Address City/State/[place] [address] [facility] Hepatitis Delta Virus Ab Total (03/04/2013 1:30 PM EST) [facility] Delt Ab NEGATIVE CERNER Tot MILLENNIUM Comment: REFERENCE RANGE: ??NEGATIVE INTERPRETIVE CRITERIA: ? NEGATIVE: ??Antibo dy not detected ?EQUIVOCAL: ??Submis aaron of a second ?s pecimen (collected 3-4 ?w eeks after initial ?s pecimen) suggested if ?c linically warranted ? POSITIVE: ??Antibo dy detected Hepatitis D virus (HDV) infection occurs in association with HBV infection. A positi ve result for HDV total antibody may indicate eith er acute or chronic HDV infection. HDV antibodies appear transiently during acute infection, and typically disappear with resolution of the infecti on. In contrast, HDV antibodies usually persist in chronic infection. Measurement of HDV Ig M may help distinguish acute from chronic infection . This test was developed and its performa nce characteristics have been determined by [facility]. Performance characteristics refer to the analytical performance of the test. Test Performed by: [facility] [address] [place] [id number] Specimen Anatomical Collection Method Collection Time Receive d Time (Source) Location / / Volume Laterality Blood specimen 03/04/2013 1:30 PM 013 3:08 (specimen) EST PM EST Resulting Agency Comment Spec In Lab Marichuy Lopez MD CHEMISTRY ORDERABLES Performing Organization Address City/State/[place] [address] DEION TREVIZOIUM (ABNORMAL) Differential, Automated (03/04/2013 1:30 PM EST) [facility] Method Time Signature Neutrophils % 49.9 34.0 - CERNER 71.0 % MILLENNIUM Neutr Abs (ANC) 3.53 1.50 - CERNER 6.30 MILLENNIUM x10(3)/mc L Lymphocytes % 25.5 19.0 - CERNER 53.0 % MILLENNIUM Lymphocytes Abs 1.8 1.0 - 3.6 CERNER x10(3)/mc MILLENNIUM L Monocytes % 12.6 4.0 - CERNER 13.0 % MILLENNIUM Monocyte Abs 0.9 0.2 - 1.0 CERNER x10(3)/mc MILLENNIUM L Eosinophils % 10.3 (H) 0.0 - 7.0 CERNER % MILLENNIUM Eosinophils Abs 0.7 (H) 0.0 - 0.5 CERNER x10(3)/mc MILLENNIUM L Basophils % 1.3 0.0 - 2.0 CERNER % MILLENNIUM Basophils Abs 0.1 0.0 - 0.2 CERNER x10(3)/mc MILLENNIUM L Immature Gran % 0.40 0.00 - CERNER 0.66 % MILLENNIUM Comment: Immature granulocytes(IG's)percentage an d absolute count will include metamyelocytes, myelocytes, and promyelo cytes. Blood smears from CBCs yielding IG's will be scanned manually for concor dance. If this scan disagrees with the automated IG or if promyelocytes are not ed, a manual differential will be performed. Blanca Gran Abs 0.03 0.00 - 0.05 x10(3)/mcL CER NER MILLENNIUM Specimen Anatomical Collection Method Collection Time Receive d Time (Source) Location / / Volume Laterality Blood specimen 03/04/2013 1:30 PM 013 1:40 (specimen) EST PM EST Marichuy Lopez MD HEMATOLOGY ORDERABLES Performing Organization Address City/State/[place] [address] CERNER MILLENNIUM Hepatitis C Antibody (03/04/2013 1:30 PM EST) Analysis Performed At Patho logist Time Signature Hepatitis C Ab Negative Negative CERNER MILLENNIUM Comment: Please note that as of 11/30/2012, the [facility] methodology for this assay has changed. However there is no change in t he interpretation of the results. Specimen Anatomical Collection Method Collection Time Receive d Time (Source) Location / / Volume Laterality Blood specimen 03/04/2013 1:30 PM 013 1:44 (specimen) EST PM EST Resulting Agency Comment Spec In Lab Marichuy Lopez MD IMMUNOLOGY ORDERABLES Performing Organization Address City/[facility]/[place] [address] CERNER MILLENNIUM (ABNORMAL) Hepatitis B Surface Antigen (03/04/2013 1:30 PM EST) Patholo gist Method Time Signature HepB Surface Positive (A) Negative CERNER Ag MILLENNIUM Comment: Please note that as of 11/30/2012, the [facility] methodology for this assay has changed. However there is no change in t he interpretation of the results. Specimen Anatomical Collection Method Collection Time Receive d Time (Source) Location / / Volume Laterality Blood specimen 03/04/2013 1:30 PM 013 1:44 (specimen) EST PM EST Resulting Agency Comment Spec In Lab Marichuy Lopez MD CHEMISTRY ORDERABLES Performing Organization Address [facility] Phon e Number [address] CERNER MILLENNIUM Hepatitis B Surface Antibody (03/04/2013 1:30 PM EST) Analysis Performed At Patho logist Time Signature HepB Surface Negative CERNER Ab MILLENNIUM Comment: Please note that as of 11/30/2012, the [facility] methodology for this assay has changed. However there is no change in t he interpretation of the results. Expected Results: Vaccinated: Positive Unvaccinated: Negative Please note: A positive result for this assay is consistent with a concentration of anti-HBs antibodies >10 mIU/ml, which indicates that anti-HBs antibodies have been detected at levels consistent with protective immunity against HBV infection. Specimen Anatomical Collection Method Collection Time Receive d Time (Source) Location / / Volume Laterality Blood specimen 03/04/2013 1:30 PM 013 1:43 (specimen) EST PM EST Resulting Agency Comment Spec In Lab Marichuy oLpez MD IMMUNOLOGY ORDERABLES Performing Organization Address City/[facility]/ZIP [facility] [place] [place] Phon e Number [address] [facility] HBV Quant (03/04/2013 1:30 PM EST) Component Value Ref Test Analysis Performed At [facility] Range Method Time Signature Hepatitis B Result: [id number] IU/mL [facility] DNAB[facility] quantitative, Indication for Study: Hepatitis B Infection [...] assay is being pe rformed in the [facility] Molecular Pathology Laboratory. Reno Sage, Ph.D. Director, Molecular Pathology Specimen Anatomical Collection Method Collection Time Receive d Time (Source) Location / / Volume Laterality Blood specimen 03/04/2013 1:30 PM 013 1:40 (specimen) EST PM EST Resulting Agency Comment Spec In Lab Marichuy Lopez MD CHEMISTRY ORDERABLES Performing Organization Address City/[facility]/ZIP Code Phon e Number [address] [facility] Ammonia (03/04/2013 1:30 PM EST) athologist [facility] Ammonia [phone] [facility] mcmol/L [facility] Specimen Anatomical Collection Method Collection Time Receive d Time (Source) Location / / Volume Laterality Blood specimen 03/04/2013 1:30 PM 013 1:38 (specimen) EST PM EST Resulting Agency Comment Spec In Lab Marichuy Lopez MD CHEMISTRY ORDERABLES Performing Organization Address City/[facility]/ZIP [facility] [place] [place] Phon e Number [address] [facility] HIV (03/04/2013 1:30 PM EST) [facility] Ab Negative Negative [facility] Specimen Anatomical Collection Method Collection Time Receive d Time (Source) Location / / Volume Laterality Blood specimen 03/04/2013 1:30 PM 013 1:40 (specimen) EST PM EST Resulting Agency Comment Spec In Lab Marichuy Lopez MD IMMUNOLOGY ORDERABLES Performing Organization Address City/[facility]/[place] [address] [facility] Hepatitis B Core Antibody, Total (03/04/2013 1:30 PM EST) Patholo gist Method Time Signature Hep B Core Ab Positive (A) Negative [facility] Specimen Anatomical Collection Method Collection Time Receive d Time (Source) Location / / Volume Laterality Blood specimen 03/04/2013 1:30 PM 013 1:40 (specimen) EST PM EST Resulting Agency Comment Spec In Lab Marichuy Lopez MD CHEMISTRY ORDERABLES Performing Organization Address City/[facility]/ZIP Code Phon e Number [address] [facility] (ABNORMAL) APTT (03/04/2013 1:30 PM EST) P athologist Signature PTT 46 (H) 25 - 35 sec CERNER MILLENNIUM Comment: Recommended therapeutic PTT range for fu ll dose unfractionated heparin is 80-114 seconds. Specimen Anatomical Collection Method Collection Time Receive d Time (Source) Location / / Volume Laterality Blood specimen 03/04/2013 1:30 PM 013 1:40 (specimen) EST PM EST Resulting Agency Comment Spec In Lab Marichuy Lopez MD HEMATOLOGY ORDERABLES Performing Organization Address City/[facility]/[place] [address] CERBANNER MILLENNIUM (ABNORMAL) Prothrombin Time (03/04/2013 1:30 PM EST) P athologist Signature PT 23.2 (H) 12.0 - 15.0 CERNER sec MILLENNIUM Comment: [facility] Transfusion Committee Guidelines: I NR less than 2.0, PTT less than OR equal to 43.5 seconds, or Fibrinogen gre ater than or equal to 100 mg/dl indicate adequate procoagulant activity for hemostasis in patients without underlying bleeding disorders. INR 2.0 (H) 0.9 - 1.1 CERNER MILLENNIUM Specimen Anatomical Collection Method Collection Time Receive d Time (Source) Location / / Volume Laterality Blood specimen 03/04/2013 1:30 PM 013 1:40 (specimen) EST PM EST Resulting Agency Comment Spec In Lab Marichuy Lopez MD HEMATOLOGY ORDERABLES Performing Organization Address City/[facility]/[place] [address] CERNER MILLENNIUM (ABNORMAL) Hepatic Function Panel (03/04/2013 1:30 PM EST) [facility] Method Time Signature Total Protein 4.9 (L) 6.4 - 8.3 CERNER gm/dL MILLENNIUM Albumin 2.7 (L) 3.2 - 5.2 CERNER gm/dL MILLENNIUM AST 1,063 (H) 0 - 30 CERNER unit/L MILLENNIUM ALT 1,046 (H) 0 - 30 CERNER unit/L MILLENNIUM Alk Phos 146 (H) 40 - 104 CERNER unit/L MILLENNIUM Total 20.2 (H) 0.2 - 1.3 CERNER Bilirubin mg/dL MILLENNIUM Bili, Direct >10.0 (H) 0.0 - 0.3 CERNER mg/dL MILLENNIUM Specimen Anatomical Collection Method Collection Time Receive d Time (Source) Location / / Volume Laterality Blood specimen 03/04/2013 1:30 PM 013 1:40 (specimen) EST PM EST Resulting Agency Comment Spec In Lab Marichuy Lopez MD CHEMISTRY ORDERABLES Performing Organization Address City/[facility]/[place] [address] CERNER MILLENNIUM (ABNORMAL) CBC (with Diff) (03/04/2013 1:30 PM EST) [facility] Method Time Signature WBC 7.1 4.0 - 10.0 CERNER x10(3)/mcL MILLENNIUM RBC 4.29 3.93 - CERNER 5.22 MILLENNIUM x10(6)/mcL Hemoglobin 13.5 11.2 - CERNER 15.7 gm/dL MILLENNIUM Hematocrit 37.1 34.0 - CERNER 45.0 % MILLENNIUM MCV 86.5 79.0 - CERNER 94.0 fL MILLENNIUM MCH 31.5 26.6 - CERNER 32.2 pg [facility] MCHC 36.4 32.0 - CERNER 36.5 gm/dL [facility] Platelets 103 (L) 145 - 370 CERNER x10(3)/mcL [facility] RDWSD 58.8 (H) 35.0 - CERNER 46.0 fL [facility] RDWCV 18.8 (H) 10.9 - CERNER 14.4 % [facility] MPV Not Measured 9.0 - 12.0 CERNER fL [facility] Specimen Anatomical Collection Method Collection Time Receive d Time (Source) Location / / Volume Laterality Blood specimen 03/04/2013 1:30 PM 013 1:40 (specimen) EST PM EST Resulting Agency Comment Spec In Lab Marichuy Lopez MD HEMATOLOGY ORDERABLES Performing Organization Address City/State/[place] [address] [facility] documented in this encounter Visit Diagnoses Diagnosis Acute hepatitis Acute and subacute necrosis of liver Viral hepatitis B acute Viral hepatitis B without mention of hep atic coma, acute or unspecified, without mention of hepatitis delta documented in this encounter Administered Medications Inactive Administered Medications - up to 3 most recent administrations Medication Order MAR Action Action Date Dose Rate Site bisacodyl (DULCOLAX) EC tablet 10 Given 03/05/2013 8:14 AM EST 1 0 mg mg 10 mg, Oral, 2 TIMES DAILY PRN, Starting on Thu03/04/13 at 1331, Until 03/07/13 at 1854, Constipation, Administer if needed per patient's routine or if no bowel movement within 48 hours, Routine dextrose 5% and sodium chloride New Bag 03/05/2013 10:18 PM ES T 100 mL/hr 100 mL/hr 0.45% with potassium chloride 20 mEq infusion 100 mL/hr, Intravenous, CONTINUOUS, Starting on Thu03/04/13 at 1345, Until 03/06/13 at 1044 New Bag 03/05/2013 11:00 AM EST 100 mL/hr 100 mL/hr New Bag 03/05/2013 1:37 AM EST 100 mL/hr 100 mL/hr esomeprazole (NEXIUM) capsule 40 mg Given 03/07/2013 9:00 AM EST 40 mg 40 mg, Oral, DAILY, First dose on Thu03/04/13 at 1500, Until Discontinued, Routine Given 03/06/2013 9:55 AM EST 40 mg Given 03/05/2013 8:00 AM EST 40 mg HYDROmorphone (DILAUDID) injection 0.2 m g Given 03/04/2013 8:32 PM EST 0.2 mg 0.2 mg, Intravenous, EVERY 4 HOURS PRN, Starting on Thu03/04/13 at 1953, Until Thu03/07/13 at 1854, Pain, Routine lactulose (CHRONULAC) 20 gram/30 mL oral Given 03/07/2013 9:00 A M EST 20 g solution 20-40 g 20-40 g (30-60 mL), Oral, DAILY, First dose on Thu03/04/13 at 1400, Until Discontinued, Administer if needed per patient's routine or if no bowel movement within 48 hours If no bowel movement within 24 hours may increase to 60 mL orally once daily PRN, Routine Given 03/06/2013 9:55 AM EST 20 g lamiVUDine (EPIVIR) tablet 100 mg Given 03/07/2013 9:00 AM EST 100 mg 100 mg, Oral, DAILY, First dose (after last modification) on Thu03/04/13 at 1900, Until Discontinued, STAT, Indication for (Active or Suspected): for GI/Intra-abdominal Given 03/06/2013 9:55 AM EST 100 mg Given 03/05/2013 8:00 AM EST 100 mg magnesium oxide (MAG-OX) tablet 400 mg Given 03/07/2013 9:00 AM EST 400 mg 400 mg, Oral, 2 TIMES DAILY, First dose on Thu03/06/13 at 1430, Until Discontinued, Routine Given 03/06/2013 9:04 PM EST 400 mg Given 03/06/2013 3:43 PM EST 400 mg melatonin tablet 3 mg Given 03/06/2013 9:04 PM EST 3 mg 3 mg, Oral, NIGHTLY, First dose on Thu03/04/13 at 2100, Until Discontinued, Routine Given 03/05/2013 8:54 PM EST 3 mg Given 03/04/2013 10:38 PM EST 3 mg multivitamin (THERAGRAN) tablet 1 tablet Given 03/07/2013 9:00 AM EST 1 tablet 1 tablet, Oral, DAILY, First dose on Thu03/04/13 at 1500, Until Discontinued Given 03/06/2013 9:56 AM EST 1 tablet Given 03/05/2013 8:00 AM EST 1 tablet ondansetron (ZOFRAN) injection 4 mg Given 03/06/2013 9:06 PM EST 4 mg 4 mg, Intravenous, EVERY 8 HOURS PRN, Starting on Thu03/04/13 at 1330, Until Thu03/07/13 at 1854, Nausea Given 03/05/2013 5:01 PM EST 4 mg potassium chloride (K-DUR/KLOR-CON) extended Given 11/2012 7:00 PM EST 40 mEq release tablet 40 mEq 40 mEq, Oral, ONCE, 1 dose, On Thu03/04/13 at 1900, Routine sodium chloride 0.9 % flush 5 mL Given 03/07/2013 12:15 PM EST 5 mLs 5 mL, Intravenous, EVERY 12 HOURS, First dose on Thu03/04/13 at 1215, Until Discontinued Given 03/06/2013 9:00 PM EST 5 mLs Given 03/06/2013 12:15 PM EST 5 mLs documented in this encounter Active and Recently Administered Medications Times are shown in EST. Scheduled Medication Order 03/05/2013 03/06/2013 03/07/2013 esomeprazole (NEXIUM) capsule 40 mg (CANCELED) 0800 (G iven - Provider: Judy Gann RN) 0955 (Given - Provider: Rigo Rivera, LAWRENCE) 0900 (Given - Provider: Nuvia Ambrosio RN) 40 mg, Oral, DAILY, First dose on Thu at 1500, Until Discontinued, Routine lactulose (CHRONULAC) 20 gram/30 mL oral solution 20-4 0 g 0800 (Not Given - Provider: Judy Gann RN - Reason: Patient/family refused) 0955 (Given - Provider: Rigo Rivera, LAWRENCE) 0900 (Given - Provider: Nuvia garcia RN) 30-60 mL = 20-40 g, Oral, DAILY, First d ose on Thu03/04/13 at 1400, Until Discontinued, Administer if needed per patient's routine or if no bowel movement within 48 hours If no bowel movement within 24 hours may increase to 60 mL orally once daily PRN, Routine lamiVUDine (EPIVIR) tablet 100 mg 0800 (Given - Provider: Adithya Gann RN) 0955 (Given - Provider: Rigo Rivera, LAWRENCE) 0900 (Given - Provider: Nuvia Ambrosio RN) 100 mg, Oral, DAILY, First dose on Thu05/04/12 at 1900, Until Discontinued, STAT magnesium oxide (MAG-OX) tablet 400 mg 1 543 (Given - Provider: Rigo Rivera, LAWRENCE)2103 (Given - Provider: Cherelle Quinn RN) 0900 (Given - Provider: Nuvia Ambrosio RN) 400 mg, Oral, 2 TIMES DAILY, First dose on Thu03/06/13 at 1430, Until Discontinued, Routine melatonin tablet 3 mg (CANCELED) 2053 (Given - Provider: Ladarius Quinn RN) 2103 (Given - Provider: Cherelle Quinn RN) 3 mg, Oral, NIGHTLY, First dose on Thu05/04/12 at 2100, Until Discontinued, Routine multivitamin (THERAGRAN) tablet 1 tablet (CANCELED) 08 00 (Given - Provider: Judy Gann RN) 0956 (Given - Provider: Rigo Rivera RN) 0900 (Given - Provider: Nuvia Ambrosio RN) 1 tablet, Oral, DAILY, First dose on Thu03/04/13 at 1500, Until Discontinued, Routine sodium chloride 0.9 % flush 5 mL (CANCELED) 0015 (Not Given - Provider: Tricia Sears - Reason: See comment - Comment: IVF infusing)1215 (Not Given - Provider: Judy Gann RN - Reason: See comment - Comment: infusing)2100 (Given - Provider: Cherelle Quinn RN) 1215 (Given - Provider: Rigo Rivera, LAWRENCE)2100 (Given - Provider: Cherelle Quinn RN) 1215 (Given - Provider: Nuvia Ambrosio RN) 5 mL, Intravenous, EVERY 12 HOURS, First dose on Thu03/04/13 at 1215, Until Discontinued, Routine Continuous Medication Order 03/05/2013 03/06/2013 03/07/2013 dextrose 5% and sodium chloride 0.45% wi th potassium chloride 20 mEq infusion (CANCELED) 0030 (Rate/Dose Verify - Provider: Tricia Sears)0137 (New Bag - Provider: Tricia Sears)1100 (New Bag - Provider: Judy Gann, LAWRENCE)2218 (New Bag - Provider: Cherelle Quinn, LAWRENCE) 100 mL/hr, at 100 mL/hr, Intravenous, CO NTINUOUS, Starting Thu03/04/13 at 1345, Until 03/06/13 at 1044 PRN Medication Order 03/05/2013 03/06/2013 03/07/2013 bisacodyl (DULCOLAX) EC tablet 10 mg (CANCELED) 0814 ( Given - Provider: Judy Gann, LAWRENCE) 10 mg, Oral, 2 TIMES DAILY PRN, Starting Thu03/04/13 at 1331, Until 03/07/13 at 1854, Constipation, Administer if needed per patient's routine or if no bowel movement within 48 hours, Routine ondansetron (ZOFRAN) injection 4 mg (CANCELED) 1701 (G iven - Provider: Judy Gann RN) 2106 (Given - Provider: Cherelle Quinn, LAWRENCE) 4 mg, Intravenous, EVERY 8 HOURS PRN, St arting 03/04/13 at 1330, Until 03/07/13 at 1854, Nausea, Routine documented in this encounter Care Teams Transfer Engineer Relationship Specialty Start Date End Date Maico Jones MD PCP - General 03/05/13 12/23/21 [address] [facility] [place] [address] documented as of this encounter
--- OUTSIDE RECORDS SUMMARY | 2022-02-22 23:40 | XMS_ITS | Encounter Summary ---
:1950 Author Organization [facility] [place] [address] Care Team Providers Name Role Phone Manasa Mathur MD Primary Care Provider Encounter Details Date Type Department Care Team Description 02/26/2013 Orders Only Hospitalist Ilana Lopez MD [facility] [place] [address] [place] [address] MEDICINE [phone] [place], [place] [address] (Wo rk) Social History Tobacco Use Types Packs/Day Years Used Date Never Assessed Sex Assigned at Date Recorded Not on file documented as of this encounter Plan of Treatment Pending Results Name Type Priority Associated Diagnoses Date/Ti tx Film Library- Storage Imaging Routine 2012 7:[address] abdomen & pelvis Scheduled Procedures Name Priority Associated Diagnoses Date/Time EGD, UPPER GI ENDOSCOPY Gastroesophageal reflux disease, esophagitis presence not specifi ed documented as of this encounter Visit Diagnoses Not on filedocumented in this encounter Care Teams Upholstery Instructor Relationship Specialty Start Date End Date Manasa Mathur MD PCP - General 03/19/10 03/04/[address] [place], [place] [id number] documented as of this encounter
--- OUTSIDE RECORDS SUMMARY | 2022-02-22 23:40 | XMS_ITS | Encounter Summary ---
:1950 Author Organization [facility] [place] [address] Care Team Providers Name Role Phone Manasa Mathur MD Primary Care Provider Encounter Details Date Type Department Care Team Description 04/09/2010 Follow-Up Vascular Surgery at [facility] Domingo Coy MD [facility] [place] [address] VASCULAR SURGERY [phone] [place], [place] [address] (Wo rk) Social History Tobacco [...] on filedocumented in this encounter Care Teams Pamphlet Distributor Relationship Specialty Start Date End Date Manasa Mathur MD PCP - General 03/19/10 03/04/[address] [place], [place] [id number] documented as of this encounter
--- OUTSIDE RECORDS SUMMARY | 2022-02-22 23:48 | XMS_ITS | Encounter Summary ---
:1950 Author Organization [facility] Address [address] [place] [address] Care Team Providers Name Role Phone Unavailable Primary Care Provider Unavailable Encounter Details Date Type Department Care Team Description 02/22/2002 Results Only [facility] Sunday Huizar MD Gynecologic Oncology - [address] [facility], [address] [place] [address] [place], [place] [phone] (Wo rk) Social History Tobacco Use Types [...] CHARLENE HARMON ? Accession #: ? [id number] : ? 1950 (Age: 51) ??F ?Collect [...] Organization Address City/State/ZIP Code Phon e Number [facility] [address] [place] [address] SERVICES [facility] [address] [place] [address] documented in this encounter Visit Diagnoses Not on filedocumented in this encounter
--- OUTSIDE RECORDS SUMMARY | 2022-02-22 23:48 | XMS_ITS | Clinical Summary ---
:1950 Author Organization [facility] Address [address] [place] [address] Care Team Providers Name Role Phone Manasa Mathur MD Primary Care Provider Social History Tobacco Use Types Packs/Day Years Used Date Never Assessed Sex Assigned at Date Recorded Not on file Plan of Treatment Health Maintenance Due Date Last Done Comments Fall Risk Screening 2013 Insurance Payer Benefit Plan / Subscriber ID Effective Dates Phone Addre ss Type Group MEDICARE MEDICARE A/B [id number] 2013-Present [id number] [place] [address] Care Teams Sales Planning Manager Relationship Specialty Start Date End Date Dobbertin, Manasa M, MD PCP - General 03/06/15 [address] [place], [place] [address]
--- OUTSIDE RECORDS SUMMARY | 2022-02-22 23:48 | XMS_ITS | Encounter Summary ---
:1950 Author Organization [facility] Address [address] [place] [address] Care Team Providers Name Role Phone Manasa Mathur MD Primary Care Provider Encounter Details Date Type Department Care Team Description 02/25/1999 Hospital Encounter [facility] - Janette Gutierrez MD [address] [facility] [address] [place] [address] [address] [place] [address] (Wo rk) Social History Tobacco Use Types Packs/Day Years Used Date Never Assessed Sex Assigned at Date Recorded Not on file documented as of this encounter Plan of Treatment Not on filedocumented as of this encounter Visit Diagnoses Not on filedocumented in this encounter Care Teams Outpatient Surgery Rn Relationship Specialty Start Date End Date Manasa Mathur MD PCP - General 03/06/15 [address] [place], [place] [id number] documented as of this encounter
--- OUTSIDE RECORDS SUMMARY | 2022-02-22 23:48 | XMS_ITS | Encounter Summary ---
:1950 Author Organization [facility] Address [address] [place] [address] Care Team Providers Name Role Phone Manasa Mathur MD Primary Care Provider Encounter Details Date Type Department Care Team Description 07/04/2019 Lab Requisition [facility] Ilana Calero for Pathology & M, DO screening for Laboratory Medicine - [address] ma lignant neoplasm of [facility] [address] colon [address] [place] [phone] Social History Tobacco Use Types Packs/Day Years [...] Diagnosis A. COLON, CECUM, POLYP, BIOPSY: [facility] Electronically - Colonic mucosa with no significant diagnostic abnorm ality. CENTER signed by Keeley Davis, - No definite polyp identified. LABORATOR Y Tamela Anderson MD on - Deeper sections x3 examined. SERVICES 07/06/2019 at 0829 Clinical History Transplant screening, colonoscopy [facility] LABORATORY SERVICES Attestation By the signature [facility] Electronica lly below, the attending CENTER signed [...] 0.1 cm). Submitted in toto in A1. [facility] Tierra Atulclark 07/04/2019 16:24 LABORATO RY SERVICES Scanned Images [facility] LABORATORY SERVICES Specimen Tissue - Cecum structure (body structure ) Performing Organization Address City/State/ZIP Code Phon e Number [facility] [address] [place] [address] SERVICES documented in this encounter Visit Diagnoses Diagnosis Encounter for screening for malignant ne oplasm of colon Special screening for malignant neoplasm s, colon documented in this encounter Care Teams Cargo Handler Relationship Specialty Start Date End Date Manasa Mathur MD PCP - General 03/06/15 [address] [place], [place] [address] documented as of this encounter
--- OUTSIDE RECORDS SUMMARY | 2022-02-22 23:48 | XMS_ITS | Encounter Summary ---
:1950 Author Organization [facility] Address [address] [place] [address] Care Team Providers Name Role Phone Manasa Mathur MD Primary Care Provider Encounter Details Date Type Department Care Team Description 03/07/2004 Hospital Encounter [facility] - Albaro Catalan MD Other [address] [address] [place], [place] [phone] (Wo rk) Social History Tobacco Use Types Packs/Day Years Used Date Never Assessed Sex Assigned at Date Recorded Not on file documented as of this encounter Plan of Treatment Not on filedocumented as of this encounter Visit Diagnoses Not on filedocumented in this encounter Care Teams Design Checker Relationship Specialty Start Date End Date Manasa Mathur MD PCP - General 03/06/15 [address] [place], [place] [phone] documented as of this encounter
--- OUTSIDE RECORDS SUMMARY | 2022-02-22 23:48 | XMS_ITS | Encounter Summary ---
:1950 Author Organization [facility] Address [address] [place] [address] Care Team Providers Name Role Phone Unavailable Primary Care Provider Unavailable Encounter Details Date Type Department Care Team Description 02/18/2001 Results Only [facility] - Susan Gutierrez Maple conversion MD [address] [facility] [address] [place] [address] [address] [place] [address] (Wo rk) Social History Tobacco [...] ? CHARLENE HARMON ? Accession #: ? [id number] ? : ? 1950 (Age: 50) ??F ? Collect Date: ? 02/18/2001 ? Location: ? [facility] ? Receive Date: ? 001 ? Provider: SUSAN GUTIERREZ MD Copy to: ? Final Pathologic Diagnosis: ? Vaginal cuff, biopsy: 1. ?Benign vaginal mucosa; no specific pa thologic findings. 2. ?No evidence of dysplasia or malignanc y. ?? Document reviewed and electronically signed by: Afua Hwnag MD Report ??Date: 02/22/2001 16:58 By the [...] Organization Address City/State/ZIP Code Phon e Number [facility] [address] [place] [address] SERVICES [facility] [address] [place] [address] documented in this encounter Visit Diagnoses Not on filedocumented in this encounter
--- OUTSIDE RECORDS SUMMARY | 2022-02-22 23:48 | XMS_ITS | Encounter Summary ---
:1950 Author Organization [facility] Address [address] [place] [address] Care Team Providers Name Role Phone Manasa Mathur MD Primary Care Provider Encounter Details Date Type Department Care Team Description 05/04/2020 Lab Requisition [facility] Outr Resulting Lab, Pathology & Laboratory Provider [facility] [address] [place] [address] Social History Tobacco Use Types [...] Pathologist Sig nature Salmonella PCR Negative Negative [facility] LABORATORY SERVICES Shigella/Enteroinvasive Negative Negative [facility] SERVICES HN LAB CAMPYLOBACTER PCR Negative Negative [facility] LABORATORY SERVICES Shiga Toxin PCR Negative Negative [facility] LABORATORY SERVICES Specimen Feces - Specimen from rectum (specimen) Performing Organization Address City/State/ZIP Code Phon e Number [facility] [address] [place] [address] SERVICES documented in this encounter Visit Diagnoses Not on filedocumented in this encounter Care Teams Chart Collector Relationship Specialty Start Date End Date Manasa Mathur MD PCP - General 03/06/15 [address] [place] [address] documented as of this encounter
--- OUTSIDE RECORDS SUMMARY | 2022-02-22 23:48 | XMS_ITS | Encounter Summary ---
:1950 Author Organization [facility] Address [address] [place] [address] Care Team Providers Name Role Phone Manasa Mathur MD Primary Care Provider Encounter Details Date Type Department Care Team Description 06/29/[address] [facility] Sanjuanita Lee Enc ounter for other Pathology & MD general examination Laboratory Medicine [address] [place] [id number] Social History Tobacco Use Types Packs/Day Years [...] THINPREP (06/29/2019 10:15 EST) Specimen Source vaginal ED [facility] LABORATORIES HPV Risk Type 16, Negative Negative ED [facility] PCR LABORATORIES HPV High Risk Negative Negative [facility] Type 18, PcR LABORATORIES HPV Other High Negative Negative [facility] Risk Types, PCR Comment: LABORATORIES The following Other High Risk HPV types were not detec ti: 31, 33, 35, 39, 45, 51, 52, 56, 58, 59, 66, and 68 Test Performed by: [facility] [address] [place] [address] Housekeeper Child Care: Prashant Hilario M.D. Ph.D.; CLIA# [id number] Specimen Pap Test - Entire vagina (body structure ) Performing Organization Address City/[facility]/ZIP Code Phon e Number [facility] [address] [place] [address] PAP TEST (06/29/2019 10:15 EST) Specimens A. Cervix and/or [facility] MEDICAL Endocervix, , [place] ThinPrep Imaging LABORATORY System with Manual SERVICES Evaluation Specimen Adequacy Satisfactory for Evaluation - transformation zone component present [facility] Scant due to excessive inflammation [facility] LABORATORY SERVICES General Negative for [facility] intraepithelial CENTER lesion or malignancy LABORATORY SERVICES Attestation By the signature below, the attending physician certifies that they have personally conducted a gross and/or microscopic [facility] Electronically examination of the described specimens and rendered or confirmed the above diagnosis. CENTER signed by REANNA Jean on 2019 SERVICES at 1401 Clinical History NONE [facility] LABORATORY SERVICES HPV The results for the HPV with Genotyping, PCR, ThinPrep are Negative for the HPV Risk Type 16, PCR, Negative for the HPV High Risk Type 18, PcR, and Negative for the HPV Other High Risk Types, PCR. Testi [facility] ng was performed on specimen [id number] and was resulted on 07/08/2019 1839 EDT by OPAL CHAUDHRY [place] RESULTS IN. [place] LABORATORY SERVICES Scanned Images [facility] LABORATORY SERVICES Specimen Pap Test - Entire vagina (body structure ) Performing Organization Address City/[facility]/ZIP Code Phon e Number [facility] [address] [place] [address] SERVICES documented in this encounter Visit Diagnoses Diagnosis Encounter for other general examination documented in this encounter Care Teams [employer] Librarian Relationship Specialty Start Date End Date Manasa Mathur MD PCP - General 03/06/15 [address] [place], [place] [address] documented as of this encounter
--- OUTSIDE RECORDS SUMMARY | 2022-02-22 23:48 | XMS_ITS | Encounter Summary ---
:1950 Author Organization [facility] Address [address] [place] [address] Care Team Providers Name Role Phone Unavailable Primary Care Provider Unavailable Encounter Details Date Type Department Care Team Description 01/25/2002 - Hospital Encounter [facility] - Albaro Catalan MD 02/22/2002 Maple conversion [address] [address] [facility] [phone] [place], [address] [place] [address] (Wo rk) Social History Tobacco [...] Address City/State/ZIP Code Phon e Number [facility] [address] [facility] [address] [facility] [address] [place], [place] [address] documented in this encounter Visit Diagnoses Not on filedocumented in this encounter
--- OUTSIDE RECORDS SUMMARY | 2022-02-22 23:48 | XMS_ITS | Encounter Summary ---
:1950 Author Organization [facility] Address [address] [place] [address] Care Team Providers Name Role Phone Unavailable Primary Care Provider Unavailable Encounter Details Date Type Department Care Team Description 03/07/2004 Results Only [facility] Sunday Huizar MD Gynecologic Oncology - [address] [facility], [address], [address] [place] [address] [place], [place] [phone] (Wo rk) Social History Tobacco Use Types [...] CHARLENE HARMON ? Accession #: ? [id number] : ? 1950 (Age: 53) ??F ?Collect [...] Organization Address City/State/ZIP Code Phon e Number [facility] [address] [place] [address] SERVICES [facility] [address] [place] [address] documented in this encounter Visit Diagnoses Not on filedocumented in this encounter
--- OUTSIDE RECORDS SUMMARY | 2022-02-22 23:48 | XMS_ITS | Encounter Summary ---
:1950 Author Organization [facility] Address [address] [place] [address] Care Team Providers Name Role Phone Unavailable Primary Care Provider Unavailable Encounter Details Date Type Department Care Team Description 07/13/2006 Results Only [facility] - Manasa Mathur MD Maple conversion [address] [facility] [address] [place] [address] [place], [place] [phone] (Wo rk) Social History Tobacco Use Types [...] CHARLENE HARMON ? Accession #: ? [id number] : ? 1950 (Age: 55) ??F ?Collect Date: ? 06/25 Location: ? [facility] ? Receive Date : ? 07/15/2006 Provider: ?MANASA MATHUR MD Copy to: ? Specimen/Source: ? ThinPrep Pap Test, Vagina, processed on [employer] ThinPrep Imaging System, with manual evaluation [...] Organization Address City/State/ZIP Code Phon e Number [facility] [address] [place] [address] SERVICES [facility] [address] [place] [address] documented in this encounter Visit Diagnoses Not on filedocumented in this encounter
--- OUTSIDE RECORDS SUMMARY | 2022-02-22 23:48 | XMS_ITS | Encounter Summary ---
:1950 Author Organization [facility] Address [address] [place] [address] Care Team Providers Name Role Phone Unavailable Primary Care Provider Unavailable Encounter Details Date Type Department Care Team Description 11/07/2008 Orders Only [facility] Di Mathur MD Laboratory Services - [address] [place] [address] [address] [place] [address] [phone] Social History Tobacco Use Types Packs/Day Years [...] City/State/ZIP Code Phon e Number [facility] [address] [place] [address] SERVICES [facility] [address] [place] [address] CYTOPATHOLOGY (11/07/2008 0:00 EDT) Pathology Report: CYTOPATHOLOGY REPORT ? [facility] ? LAB Reports generated via electr Page365ic interface contain original data; ? however they are lacking the format of the original report. ? Caution should be taken when reading/interpreting unformatted reports. ? Name: ? CHARLENE HARMON ? Accession #: ? [id number] ? : ? 1950 (Age: 58) ??F [...] City/State/ZIP Code Phon e Number [facility] [address] [place] [address] SERVICES [facility] [address] [place] [address] documented in this encounter Visit Diagnoses Not on filedocumented in this encounter
--- OUTSIDE RECORDS SUMMARY | 2022-02-22 23:48 | XMS_ITS | Encounter Summary ---
:1950 Author Organization [facility] Address [address] [place] [address] Care Team Providers Name Role Phone Unavailable Primary Care Provider Unavailable Encounter Details Date Type Department Care Team Description 02/02/2001 - Hospital Encounter [facility] - Janette Gutierrez 02/24/2001 [facility] MD [facility] [address] [facility] [address] [place] [address] [address] [place] [address] (Wo rk) Social History Tobacco [...] DENSITY 10MM PT HAS [address] [facility] Procedure Note Juan Callejas MD - 03/16/2009 ULTRASOUND RT BREAST AFTER AV'S TODAY DENSITY 10MM PT HAS [address] [facility] Performing Organization Address City/State/ZIP Code Phon e Number [facility] [address] [facility] [address] [facility] [address] [place], [place] [address] [place] RICARDO DIAG UNI [...] City/State/ZIP Code Phon e Number [facility] [address] [facility] [place] [address] [facility] [address] [place], [place] [address] MA MAMMO DIAG BILAT [...] City/State/ZIP Code Phon e Number [facility] [address] [facility] [address] [facility] [address] [place], [place] [address] CYTOPATHOLOGY (02/02/2001 0:00 EDT) Pathology Report: CYTOPATHOLOGY REPORT [facility] Reports generated via electronic interface contain ashleigh ginal data; however they are lacking the format of the original re port. Caution should be taken when reading/interpreting unfo rmatted reports. Name: ? HARMONPRETTY ? Accession #: ? [id number] : ? 1950 (Age: 50) ??F ?Collect Date: ? 12/2000 Location: ? [facility] ? Receive Date : ? 02/04/2001 Provider: ?SUSAN GUTIERREZ MD Copy to: ? Specimen/Source: ?ThinPrep Pap Test, Vagina Last Menstrual Period: ? Hormonal/Contraceptive Status: ? Premarin Previous Gynecologic Pathology: ? AIS: 1982 ASC-US: 02/02 Treatment History: ? [place] Other: ? Additional clinical information: [place] [phone]. ? SPECIMEN ADEQUACY ? Satisfactory for evaluation. GENERAL CATEGORIZATION ? Epithelial Cell Abnormality DESCRIPTIVE DIAGNOSIS ? Atypical squamous jeremie ls of undetermined significance (ASCUS), cannot rule out squamous intraepithelial lesion (STANLEY). RECOMMENDATION ? Recommend clinical correlation and further eval uation, as clinically indicated. ? Document reviewed and electronically signed by: ? DIPESH LOWRY MD [facility] ? Report Date: ??02/04/2001 13:20 End of Report Specimen Performing Organization Address City/State/ZIP Code Phon e Number [facility] [address] [place] [address] SERVICES [facility] [address] [place] [address] documented in this encounter Visit Diagnoses Not on filedocumented in this encounter
--- OUTSIDE RECORDS SUMMARY | 2022-02-22 23:49 | XMS_ITS | Encounter Summary ---
:1950 Author Organization [facility] Address [address] [place] [address] Care Team Providers Name Role Phone Unavailable Primary Care Provider Unavailable Encounter Details Date Type Department Care Team Description 02/21/1999 - Hospital Encounter [facility] - Janette Gutierrez 02/24/1999 [facility] MD [facility] [address] [address] [place] [address] [address] [place] [address] (Wo rk) Social History Tobacco [...]
[2022-02-23] VITALS (9 sets, daily range): BP systolic 153–181; BP diastolic 63–90; PULSE 57–71; RESP 16–18; TEMP 36.2–37.1; O2SAT 95–99
[2022-02-23] MEDS: Gabapentin 300 MG CAP PO ×2 (00:08→21:11)
[2022-02-23] MEDS: POTASSIUM CHLORIDE/0.9% NACL 1,000 ML 100 MEQ IV ×2 (00:09→09:55)
[2022-02-23] MEDS: Levothyroxine 75 MCG TAB PO (05:23)
[2022-02-23 07:03] LABS: Abs Immature Grans 0.01 10^3/uL (0.0-0.06); Absolute Basophil Count 0.06 10^3/uL (0.0-0.2); Absolute Eosinophil Count 0.41 10^3/uL (0.0-0.7); Absolute Lymphocyte Count 0.32 10^3/uL (1.2-3.4); Absolute Monocyte Count 0.77 10^3/uL (0.1-0.8); Absolute Neutrophil Count 3.44 10^3/uL (1.2-6.7); Basophils % 1.2; Eosinophils % 8.2; HCT 37.5 % (36.0-46.0); HGB 12.5 g/dL (11.2-15.7); Immature Grans % 0.2; Lymphocytes % 6.4; MCH 28.3 pg (27.0-33.0); MCHC 33.3 % (32.0-36.0); MCV 85 fL (80-95); MPV 10.9 fL (8.0-11.0); Monocytes % 15.4; Neutrophils % 68.6; Platelet Count 208 10^3/uL (130-400); RBC 4.42 10^6/uL (3.93-5.22); RDW 19.1 % (11.7-14.6); RDW-SD 59.8 fL; WBC 5.01 10^3/uL (4.4-10.8)
[2022-02-23 07:18] LABS: ALT 11 U/L (14-59); AST 19 U/L (15-37); Albumin 3.3 g/dL (3.4-5.0); Alkaline Phosphatase 72 U/L (46-116); Anion Gap 10.1 mmol/L (3-11); BUN 32 mg/dL (7-18); Bilirubin, Total 0.7 mg/dL (0.2-1.0); CO2 25.9 mmol/L (21.0-32.0); CREATININE 2.9 mg/dL (0.55-1.02); Calcium 8.6 mg/dL (8.5-10.1); Chloride 104 mmol/L (98-107); Estimated GFR 16.58 (mL/min/1.73m2); Glucose 95 mg/dL (74-106); Magnesium 2.1 mg/dL (1.8-2.4); Potassium 3.5 mmol/L (3.5-5.1); Sodium 140 mmol/L (136-145); Total Protein 6.6 g/dL (6.4-8.2)
--- NOTE | 2022-02-23 09:04 | INITIAL_ITS ---
- If Service Date Differs Date of service: 02/23/22 Time of Service: 09:05 Care Management Initial Assess REASON FOR HOSPITALIZATION:: CVA PAST MEDICAL HISTORY/PAST SURGICAL HISTORY:: All Active Problems (Updated 02/23/22 @ 07:06 by Regan Monteiro). Hyperlipidemia (Chronic). HTN (hypertension) (Chronic). CVA (cerebral vascular accident) (Acute). Shingles (Acute). Hypertensive kidney disease with CKD stage IV (Acute). 06/25/21 [facility] Nephrology note. Middle insomnia (Chronic). CKD (chronic kidney disease) stage 4, GFR 15-29 ml/min (Chronic). G4/A3. Renovascular hypertension (Chronic). 02/19/21 [facility] Nephrology Hypertensive kidney disease with CKD stage IV. Renal artery stenosis (Chronic). (R) > (L). (R) YING bypass graft 09/12. Pre- transplant evaluation for CKD (chronic kidney disease) (Acute). Secondary hyperparathyroidism (Chronic). Chronic diarrhea (Acute). Cardiomyopathy (Acute). LVEF 59% on 06/16. Cervical spondylosis (Acute 08/24/07). Cirrhosis (Acute 11/15/13). from acute Hep B in 2012. Leg cramps (Chronic 12/22/17). O steopenia (Acute 11/18/12). DEXA 10/2012; T -1.2 at hip. DEXA 05/02/14; T -2.0 hip. Shoulder pain (Acute 08/24/07). Advance directive on file (Acute). Hypothyroidism (Chronic). Gastro-esophageal reflux disease without esophagitis (Chronic). EGD @ [facility] 12/16/18. Anemia (Chronic). Hearing loss (Chronic). ENT 12/21/18. High blood cholesterol (Chronic). Medical History . Abdominal aortic aneurysm (AAA) without rupture (01/04/16). repaired 09/202102/26/13-CT scan. infra-renal, 3.1 cm, 03/16/2018 [facility] Vascular Dr Moody. 3.7cm. 01/04/16- ultrasound 3.2 cm. 01/04/16-Abd US. 3.2 cm diameter. 07/2015 - 3.5 cm. rechecked 01/01/18. note 04/18/20 substantial increase in last 6 mos, CTA ordered. Acute and chronic respiratory failure with hypoxia. Acute kidney injury superimposed on chronic kidney disease. Acute on chronic systolic (congestive) heart failure. Acute respiratory failure with hypoxia. BCC (basal cell carcinoma), face (07/05/20). 05/14/20 right nasal ala- shave biopsy. Basal Cell Ca, moved to hx and BCC to problem list. 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 Cardiomyopathy. HFpEF w/ LVEF 54% per TTE in August 2018. Creatinine elevation. due to ACEI. Hepatitis B (02/24/13). Dr Watt [facility]. Pt. states she revieved treatment. Hypertensive emergency. Hypoxia. Jaundice (02/28/13). 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 05/14/20 right nasal ala- shave biopsy. Basal Cell Ca, moved to hx and BCC to problem list. Surgical History . Bilateral salpingectomy with oophorectomy. Colonoscopy - [facility] (09/27/12). DR CANCHOLA, REPEAT 10 YRS. EGD W/ BS (08/12/12). DR CANCHOLA. History of AAA (abdominal aortic aneurysm) repair (~10/01/21). 10/01/21 [facility] Vascular. Hysterectomy, Laproscopic (~03/1984). S/P exploratory laparotomy (~03/2020). 04/24/20 [facility] with lysis of adhesions. Status post Mohs surgery (07/05/20). right nasal ala for BCC. Status post surgery (09/07/18). right external iliac to right renal artery bypass with reversed rifht greater saphenous vein, [facility] PREVIOUS FUNCTIONAL STATUS/SOCIAL/FAMILY SUPPORTS:: Jami lives in a single family home in [place], [place] with her Rodolfo.They have two adult children, a daughter in [place] and son in [place] and 3 grandchildren. Jami is retired but has worked in a variety of settings including a [employer], 2 [employer] companies and a [employer]. She is independent at [employer] [facility] [place] and does not receive any community services. CURRENT FUNCTIONAL STATUS:: Charlene was sitting up in bed when CM met with her. She was polite, cooperative and agreeable to conversation. Charlene informed CM that she is feeling good today. She stated that her symptoms consisted mainly of upper extremity shaking and syncope. She is scheduled to have an Echocardiogram, MRI and neurology consult tomorrow. She shared that she is hopeful that when the testing is completed she can return home. ADVANCE DIRECTIVES:: On file at [facility]. Rodolfo JOHNSON. Has patient been provided with info about the portal/API?: Yes Did the patient sign up for the portal?: Yes CODE STATUS:: Full Code INSURANCE COVERAGE / FINANCIAL ISSUES:: Medicare. BS CURRENT HOME/COMMUNITY SERVICES/EQUIPMENT:: none PRIMARY CARE PHYSICIAN:: Lexus Lawson POTENTIAL DISCHARGE NEEDS:: follow up with PCP and plan of care PATIENT/FAMILY EDUCATION NEEDS:: Review of discharge instructions, activity, limitations, diet, medications, follow up plan, Ask Me Three TRANSPORTATION:: vias private vehicle with family PLAN:: Anticipate Charlene will be discharged home with no new services when medically cleared by provider. She will follow up with her community providers and transport with family. CM will continue to support Jami and her discharge planning needs.
[2022-02-23] MEDS: Aspirin E.C. 81 MG TABEC PO (09:25)
[2022-02-23] MEDS: Carvedilol 12.5 MG TAB PO ×2 (09:25→20:09)
[2022-02-23] MEDS: Furosemide 20 MG TAB PO ×2 (09:26→16:06)
[2022-02-23] MEDS: Isosorbide Dinitrate 10 MG TAB 20 MG PO ×3 (09:26→20:09)
[2022-02-23] MEDS: Clopidogrel 75 MG TAB PO (09:26)
[2022-02-23] MEDS: Atorvastatin 40 MG TAB 80 MG PO (20:09)
--- NOTE | 2022-02-23 20:56 | PGE_ITS ---
Date of Service Date of service: 02/23/22 Time of Service: 19:00 Assessment and Plan Assessment and plan (1) Transient neurologic deficit: Status: Acute Assessment and plan: Based on the description, I favor transient global amnesia. However, the patient does have quite a vascular history and I do feel obtaining an MRI would be important. Continue aspirin/plavix initiated on admission. Will also obtain a neurology consult. Continue to monitor on tele. (2) CKD (chronic kidney disease) stage 4, GFR 15-29 ml/min: Status: Chronic Assessment and plan: S/p stenting of RCA stenosis. Monitor renal function. (3) HTN (hypertension): Status: Chronic Assessment and plan: Resume outpatient norvasc and hydralazine. (4) Cardiomyopathy: Assessment and plan: BP control. Continue furosemide. (5) Hyperlipidemia: Status: Chronic Assessment and plan: Continue atorvastatin 80 mg daily (6) DVT prophylaxis: Status: Acute Assessment and plan: SC heparin (7) Discharge planning issues: Status: Acute Assessment and plan: Full code Anticipate discharge home tomorrow Subjective Subjective Interval history since last seen: Ms Harmon feels back to normal. She states she remembers the whole episode and the only thing that to her was out of the ordinary was that she was so shaky. She states she does not drink. She states she couldn't remember what she had for dinner that night because she didn't have dinner. She denies a headache, numbness/tingling/weakness, dizziness, chest pain, shortness of breath, nausea. Exam Narrative Exam Narrative: General: Pleasant female who is seen ambulating in the hallway as well as in her room, A&Ox3, NAD HEENT: EOMI, MMM Heart: RRR, no m/r/g Lungs: CTAB Abdomen: soft, nontender, nondistended Extremities: no edema BLEs, able to move all 4 extremities. Objective Last Vital Signs Temp 37.0 C 02/23/22 20:40 Pulse 71 02/23/22 20:40 Resp 16 02/23/22 20:40 BP 181/70 H 02/23/22 20:40 Pulse Ox 97 02/23/22 20:40 Laboratory Results - last 24 hr 02/22/22 02/22/22 02/22/22 21:15 22:00 22:00 WBC RBC Hgb Hct MCV MCH MCHC RDW Plt Count MPV Immature Gran % Neutrophils % Lymphocytes % Monocytes % Eosinophils % Basophils % Nucleated RBC % Absolute Neutrophils Absolute Lymphocytes Absolute Monocytes Absolute Eosinophils Absolute Basophils Sodium Potassium Chloride Carbon Dioxide Anion Gap BUN Creatinine Est GFR (CKD-EPI 2020) Glucose Calcium Magnesium Total Bilirubin AST ALT Alkaline Phosphatase Troponin I < 50 Total Protein Albumin Urine Color Urine Clarity Urine pH Ur Specific [place] Urine Protein Urine Ketones Urine Blood Urine Nitrite Urine Bilirubin Urine Urobilinogen Ur Leukocyte Esterase Urine RBC Urine WBC Ur Epithelial Cells Urine Crystals Urine Bacteria Urine Casts Urine Mucus Ur Culture Indicated? Urine Glucose Urine Opiates Screen Negative Urine Methadone Screen Negative Ur Barbiturates Screen Negative Ur Tricyclics Screen Negative Ur Amphetamines Screen Negative U Benzodiazepines Scrn Negative Urine Cocaine Screen Negative Ur THC Screen Negative COVID-19 Source Nasopharynx SARS-CoV-2 (PCR) Negative Influenza Type A (PCR) Negative Influenza Type B (PCR) Negative RSV (PCR) Negative 02/22/22 02/23/22 02/23/22 22:00 06:28 06:28 WBC 5.01 RBC 4.42 Hgb 12.5 Hct 37.5 MCV 85 MCH 28.3 MCHC 33.3 RDW 19.1 H Plt Count 208 MPV 10.9 Immature Gran % 0.2 Neutrophils % 68.6 Lymphocytes % 6.4 Monocytes % 15.4 Eosinophils % 8.2 Basophils % 1.2 Nucleated RBC % 0.0 Absolute Neutrophils 3.44 Absolute Lymphocytes 0.32 L Absolute Monocytes 0.77 Absolute Eosinophils 0.41 Absolute Basophils 0.06 Sodium 140 Potassium 3.5 Chloride 104 Carbon Dioxide 25.9 Anion Gap 10.1 BUN 32 H Creatinine 2.9 H Est GFR (CKD-EPI 2020) 16.58 Glucose 95 Calcium 8.6 Magnesium 2.1 Total Bilirubin 0.7 AST 19 ALT 11 L Alkaline Phosphatase 72 Troponin I Total Protein 6.6 Albumin 3.3 L Urine Color Yellow Urine Clarity Clear Urine pH 6.5 Ur Specific [place] 1.020 Urine Protein 100 H Urine Ketones Negative Urine Blood Trace-intact H Urine Nitrite Negative Urine Bilirubin Negative Urine Urobilinogen 0.2 Ur Leukocyte Esterase Negative Urine RBC 3-5 H Urine WBC Negative Ur Epithelial Cells Rare Urine Crystals Negative Urine Bacteria Rare Urine Casts Negative Urine Mucus Negative Ur Culture Indicated? No Urine Glucose Negative Urine Opiates Screen Urine Methadone Screen Ur Barbiturates Screen Ur Tricyclics Screen Ur Amphetamines Screen U Benzodiazepines Scrn Urine Cocaine Screen Ur THC Screen COVID-19 Source SARS-CoV-2 (PCR) Influenza Type A (PCR) Influenza Type B (PCR) RSV (PCR) PAWSS Have you Been Recently Intoxicated or Drunk Within the Last 30 days?: No Have you Ever Experienced Previous Episodes of Alcohol Withdrawal?: No Have you ever Experienced Withdrawal Seizures?: No Have you ever Experienced Delirium Tremens(DT)s?: No Have you ever undergone Alcohol Rehabilitation Treatment (i.e, inpt ot outpatient treatment programs)?: No Have you ever Experienced Blackouts?: No Have you ever Combined Alcohol with other Downers within the last 90 days?: No Have you ever Combined Alcohol with any other Substance of Abuse during the last 90 days?: No Positive Blood Alcohol level on Presentation? [PCS.BAL]: No Evidence of Increased Autonomic Activity (i.e. HR>120, tremor, sweating, agitation, nausea)?: No Result: 0
[2022-02-23] MEDS: hydrALAZINE 25 MG TAB PO (21:11)
[2022-02-23] MEDS: amLODIPine 2.5 MG TAB PO (21:11)
[2022-02-23] MEDS: Heparin 5,000 UNITS/ML VIAL 5000 UNITS SC (23:29)
[2022-02-23] MEDS: traZODone 100 MG TAB 300 MG PO (23:29)
[2022-02-24 03:42] VITALS: BP 146/65; PULSE 67; RESP 18; TEMP 37.2; O2SAT 98
[2022-02-24] MEDS: Levothyroxine 75 MCG TAB PO (05:47)
[2022-02-24] MEDS: Heparin 5,000 UNITS/ML VIAL 5000 UNITS SC (05:47)
[2022-02-24 07:09] LABS: HCT 35.1 % (36.0-46.0); HGB 11.6 g/dL (11.2-15.7); MCH 28.9 pg (27.0-33.0); MCV 88 fL (80-95); MPV 10.6 fL (8.0-11.0); Platelet Count 176 10^3/uL (130-400); RBC 4.01 10^6/uL (3.93-5.22); RDW 19.1 % (11.7-14.6); RDW-SD 60.5 fL; WBC 5.55 10^3/uL (4.4-10.8)
[2022-02-24 07:49] LABS: Hemoglobin A1C 5.8 % (<5.7)
--- NOTE | 2022-02-24 08:00 | DI.MRI_ITS ---
Exam(s) MR BRAIN WO EXAM: MR BRAIN WO CLINICAL HISTORY: CVA TECHNIQUE: Multiplanar multisequence MRI of the brain was performed. COMPARISON: CT CT HEAD WO from 02/22/2022 MR MR ANGIO BRAIN WO from 02/24/2022 FINDINGS: VENTRICLES AND EXTRA AXIAL SPACES: Normal in size and morphology for the patient's age. MIDLINE SHIFT: None. CEREBRAL PARENCHYMA: No focus of restricted diffusion to suggest acute infarct. No space-occupying le aaron identified. Minimal high signal foci in the white matter consistent with sequela of chronic micr ovascular changes. No significant atrophy. HEMORRHAGE: None. BRAINSTEM/CEREBELLUM: Normal. VISUALIZED PARANASAL SINUSES/MASTOIDS:Clear. [place]: Normal flow void. PITUITARY GLAND: Unremarkable. ORBITS: Unremarkable. IMPRESSION: No evidence of acute infarct. Mild microvascular changes. DATA REPOSITORY:
--- NOTE | 2022-02-24 08:00 | DI.MRI_ITS ---
Exam(s) MR ANGIO BRAIN WO CLINICAL HISTORY: CVA. TECHNIQUE: 3D [id number] study was performed without contrast. COMPARISON: None. FINDINGS: Carotid Arteries: Petrous: Normal. Cavernous: Normal. Cerebral: Normal. Middle Cerebral Arteries: Right: No aneurysm or significant stenosis. Left: No aneurysm or significant stenosis. Anterior Cerebral Arteries: Right: No aneurysm or significant stenosis. Left: No aneurysm or significant stenosis. Posterior cerebral arteries: Right: No aneurysm or significant stenosis Left: No aneurysm or significant stenosis Vertebral Arteries: Right: No aneurysm or significant stenosis. No dissection. Left: No aneurysm or significant stenosis. No dissection.. Basilar Artery: No aneurysm or significant stenosis. Small Vessels: No evidence of beading. IMPRESSION: Normal MRA examination of the [place]. DATA REPOSITORY:
--- NOTE | 2022-02-24 08:00 | DI.MRI_ITS ---
Exam(s) MR ANGIO NECK WO EXAM: MR ANGIO NECK WO CLINICAL HISTORY: CVA. TECHNIQUE: 2D and 3D [id number] studies were performed.. COMPARISON: No exams were available for comparison FINDINGS: Common Carotid: Right: No dissection, occlusion or significant stenosis. Left: No dissection, occlusion or significant stenosis. External Carotid: Right: No evidence of occlusion or significant stenosis. Left: No evidence of occlusion or significant stenosis. Internal Carotid: Right: No dissection, occlusion or significant stenosis. Left: No dissection, occlusion or significant stenosis. Vertebral Artery: Right: No dissection, occlusion or significant stenosis. Left: No dissection, occlusion or significant stenosis. The visualized paraspinal soft tissues are unremarkable. IMPRESSION: No evidence of dissection, occlusion or significant stenosis. DATA REPOSITORY:
[2022-02-24 08:01] VITALS: BP 145/56; PULSE 57; RESP 17; TEMP 37.4; O2SAT 99
[2022-02-24 08:01] LABS: Iron 22 ug/dL (50-170); Total Iron Binding Capacity 211 ug/dL (250-450); Transferrin Sat 10 % (15-50)
[2022-02-24 08:02] LABS: Anion Gap 11.9 mmol/L (3-11); BUN 31 mg/dL (7-18); CO2 25.1 mmol/L (21.0-32.0); CREATININE 2.4 mg/dL (0.55-1.02); Calcium 8.3 mg/dL (8.5-10.1); Calculated LDL 69 mg/dL (<100); Chloride 108 mmol/L (98-107); Cholesterol 121 mg/dL (<200); Glucose 102 mg/dL (74-106); HDL Cholesterol 36 mg/dL (40-60); Magnesium 2.1 mg/dL (1.8-2.4); Potassium 3.3 mmol/L (3.5-5.1); Sodium 145 mmol/L (136-145); Triglyceride 84 mg/dL (<150); Vitamin B12 176 pg/mL (193-986)
[2022-02-24 08:14] LABS: Ferritin 330 ng/mL (8-252)
--- NOTE | 2022-02-24 08:50 | PDOC.CMPRO ---
- If Service Date Differs Date of service: 02/24/22 Time of Service: 08:50 Care Management Progress Note S/O: A: Charlene is a 71 year old woman admitted on 02/22/22 with a possible CVA P:Anticipate Charlene will be discharged home with no new services when medically cleared by provider. She will follow up with her community providers and transport with family. CM will continue to support Jami and her discharge planning needs.
[2022-02-24] MEDS: Furosemide 20 MG TAB PO ×2 (09:34→17:14)
[2022-02-24] MEDS: Aspirin E.C. 81 MG TABEC PO (09:34)
[2022-02-24] MEDS: Clopidogrel 75 MG TAB PO (09:34)
[2022-02-24] MEDS: hydrALAZINE 25 MG TAB PO ×2 (09:34→17:14)
[2022-02-24] MEDS: amLODIPine 5 MG TAB PO (09:34)
[2022-02-24] MEDS: Isosorbide Dinitrate 10 MG TAB 20 MG PO ×2 (09:34→17:14)
[2022-02-24] MEDS: Carvedilol 12.5 MG TAB PO (09:35)
--- NOTE | 2022-02-24 10:30 | DI.US_ITS ---
APPROVED REPORT EXAM: Comprehensive 2D, Doppler, and color-flow Echocardiogram Patient Location: In-Patient Room/Bed: 209 Incident Manager: Zofia Manjarrez RDCS (AE) Indications: CVA Echo Enhancing Agent Indication: Rule out Shunt Agent(s) / Amount(s) Used: Agitated Saline 30.0 cc Comments: Contrast study was performed with 3 IV injections of 10ccs of agitated normal saline, at re st, with cough and post valsalva maneuver. Negative contrast study for shunt flow. Other Information Study Quality: Adequate Conclusion Normal left ventricular wall thickness and chamber size. Estimated ejection fraction 55 to 60%. Wal l motion is normal Normal right ventricular size and systolic function Both atria are normal in size No intracardiac shunting is demonstrated during infusion of agitated saline Mildly sclerotic trileaflet aortic valve Mildly thickened mitral leaflets with trace to mild regurgitation Normal tricuspid valve with trace to mild regurgitation. Estimated right ventricular systolic pressu re is 27 mmHg Wall motion Left Ventricle The left ventricle is normal size. The left ventricular systolic function is normal. The left ventric ular ejection fraction is within the normal range. There is normal left ventricular wall thickness. T here is normal LV segmental wall motion. There is no ventricular septal defect visualized. LVEF is 55 %. Right Ventricle The right ventricle is normal size. The right ventricular systolic function is normal. The RVSP is 27 .5 mmHg. Atria The left atrium size is normal. The right atrium size is normal. The interatrial septum is intact wit h no evidence for an atrial septal defect. Saline bubble contrast intravenous injection does not demo nstrate PFO. Aortic Valve The Aortic valve is mildly sclerotic. Aortic valve is trileaflet. There is no aortic valvular stenosi s. No aortic regurgitation is present. Mitral Valve Mitral valve leaflets are mildly thickened. No evidence of mitral valve stenosis. Trace to mild johanna l regurgitation. Tricuspid Valve The tricuspid valve is normal in structure. There is no tricuspid valve stenosis. Trace to mild tricu spid regurgitation. Pulmonic Valve The pulmonary valve is normal in structure. There is no pulmonic valvular stenosis. There is no pulmo milagro valvular regurgitation. Great Vessels The aortic root is normal in size. The ascending aorta is normal in size. Aortic arch is normal in ca liber. IVC is normal in size and collapses >50% with inspiration. Pericardium There is no pericardial effusion. 2D Dimensions IVSD d PLAX 1.03 cm F: 0.6-1.0 LV Vol A2C d MOD 83.4 mL LVPW d PLAX 1.00 cm F: 0.6 - 1.0 LV Vol A4C d MOD 74.0 mL LVID d PLAX 4.00 cm F: 3.8 - 5.2 LA vol/ BSA A2C s A-L 20.7 mL/m2 LVDs 2.85 cm F: 2.2 - 3.5 LA vol/ BSA A4C s A-L 32.7 mL/m2 Ao Root d 2.85 cm F: 2.7 - 3.3 LA Vol/ BSA Biplane s A-L 32.3 mL/m2 RA Area A4C 11.65 cm2 LA Area A4C s MOD 17.44 cm2 RA Vol/ BSA A4C s A-L 21.7 mL/m2 LA Area A2C s MOD 11.16 cm2 Ao Asc Diam d 2.85 cm F: 2.3 - 3.1 LV EF A4C MOD 55.6 % LV EF Teichholz 55.8 % LV EF A2C MOD 55.0 % LVEF (Whitley's) 55.49 % F: 54 - 74 LV EF Biplane MOD 55.5 % LV Volume 68.36 mL F: 46 - 106 SV 44.05 mL LV Volume Index 49.53 mL/m2 F: 29 - 61 SV Index 31.82 mL/m2 LV Vol Biplane MOD 79.4 mL FS 28.60 % M-Mode TAPSE 2.21 cm (M/F) >1.7 LV Diastology MV E' medial 0.067 (>0.07 m/s) E/A Ratio 0.8 LV E/e MED 11.00 (<14) MV E Vmax 0.74 (0.4-1.3 m/s) MV E' lateral 0.081 (>0.1 m/s) MV A Vmax 0.95 (0.4-1.3 m/s) LV E/e LAT 9.00 (<14) MV E/A Ratio 0.76 MV E/E' medial 11.03 MV E/E' lateral 9.04 Aortic Valve LVOT Area 2.99 cm2 AoV Area Vmax 2.02 cm2 LVOT Vmax 0.81 m/s AoV Area/ BSA (Vmax) 1.46 cm2/m2 LVOT Mean Radames. 0.56 m/s MARGARITA Mean Radames. 1.90 cm2 LVOT Peak Grad 2.7 mmHg MARGARITA Mean Radames. Index 1.38 cm2/m2 LVOT Mean Grad 1.4 mmHg LVOT VTI 0.189 m LVOT Diam s 1.95 cm AoV Vmax 1.21 m/s Velocity Ratio 0.66 AoV Mean Radames. 0.88 m/s AoV Peak Grad 5.8 mmHg LVOT SV 56.75 mL AoV Mean Grad 3.4 mmHg AoV VTI 0.262 m AoV Area VTI 2.16 cm2 AoV Area/ BSA (VTI) 1.56 cm/m2 Mitral Valve MV DT 247 (160-240 msec) MV PHT 72 msec MV Area PHT 3.08 cm2 MV VTI 0.373 m MV Area VTI 1.52 (4.0-6.0 cm2) Pulmonary Valve PV Vmax 0.77 (0.5-1.5 m/s) RVOT Peak Gr. 1.06 mmHg PV Peak Grad 2.4 mmHg RVOT Mean Gr. 0.55 mmHg PV Mean Grad 1.2 mmHg RVOT VTI 0.125 m PV VTI 0.161 m RVOT Vmax 0.51 m/s Tricuspid Valve TR Peak Grad 24.4 mmHg TR Vmax 2.47 m/s RA Pressure 3.00 mmHg RVSP (TR) 27.5 mmHg
[2022-02-24 15:15] VITALS: PULSE 65
[2022-02-24 15:26] VITALS: BP 116/68; PULSE 62; RESP 16; TEMP 36.5; O2SAT 95
--- NOTE | 2022-02-24 15:26 | NCONE_ITS ---
Date of service: 02/24/22 Time of Service: 15:26 Assessment and Plan Assessment and plan (1) AMS (altered mental status): Status: Acute (2) B12 deficiency: Status: Acute (3) Syncope: Status: Chronic Assessment and plan: Charlene was brought in with reported AMS, possible transient global amnesia, now back to baseline with no recurrence. MRI imaging with no new findings. Ok to d/c Plavix. Continue home ASA and atorvastatin doses as an outpatient. No further testing/treatment at this time. However, did have an apparent syncopal episode ~2 weeks ago. Recommend extended outpatient cardiac monitoring. Finally, incidental low vitamin B12. I recommend supplement 1000mcg daily with plan to re-check in 2-3 months to ensure absorption and level >400. Otherwise will need IM. She would like to follow-up in neurology clinic as needed. She will call with any further events. History of Present Illness History of Present Illness Chief Complaint: AMS/syncope Narrative: Handedness: right. HPI: Ms. Harmon is a 71 year-old with HTN, HLD, chronic kidney disease, AAA s/p stent, renal a stenosis s/p stent, peripheral vascular disease, insomnia, prior SBO, and cardiomyopathy. Ms. Harmon was brought to the [facility] ER on 02/22/22 by her for AMS. Per ER she had amnesia of the afternoon? There were also reports of a questionable syncopal episode that day. Patient today notes that when handing phone back and forth with her , that she had transient bilateral arm shaking. She denies syncopal episode that day. Though notes ~2 weeks ago while standing in the kitchen, she felt her legs/knees go weak/tingling such that she leaned over the counter, but then subsequently fell backwards she believes with quick LOC. She does not recall hitting the ground. Returned to normal quickly after. Did reach out to her PCP. No recurrent events. Denies associated chest pain, palp, SOB, diaphoresis, vision changes, RICHARDSON, etc. She has undergone the work-up as below. Tele has been unremarkable during her stay. Work-up: -Labs (02/22/22): W 8.21, Hgb 12.7, Na 133-> 140, K 3.3, -> 3.5 -> 3.3, BUN 34, Cr 3.1 -> 2.9, -> 2.4, A1c 5.8, CK 114, Trop x 2 neg, LDL 69, TSH 1.84, UA neg, UDS/ETOH neg, B12 176 -CTH (02/22/22): R caudate hypointensity. No acute findings. I reviewed these images personally and this is my personal interpretation. -MRI brain (02/24/22): No acute findings. Old R caudate lacune. I reviewed these images personally and this is my personal interpretation. -MRA head/neck (02/24/22): Unremarkable. I reviewed these images personally and this is my personal interpretation. -TTE (02/24/22): EF 55-60%, no wall motion abnormalities. LA normal. No bubble performed. PFSH All Active Problems (Updated 02/24/22 @ 16:16 by Bertha Hickman MD) B12 deficiency (Acute) Syncope (Chronic) AMS (altered mental status) (Acute) Discharge planning issues (Acute) DVT prophylaxis (Acute) Transient neurologic deficit (Acute) Hyperlipidemia (Chronic) HTN (hypertension) (Chronic) CVA (cerebral vascular accident) (Acute) Shingles (Acute) Hypertensive kidney disease with CKD stage IV (Acute) 06/25/21 [facility] [place] Nephrology note Middle insomnia (Chronic) CKD (chronic kidney disease) stage 4, GFR 15-29 ml/min (Chronic) G4/A3 Renovascular hypertension (Chronic) 02/19/21 [facility] [place] Nephrology Hypertensive kidney disease with CKD stage IV Renal artery stenosis (Chronic) (R) > (L) (R) YING bypass graft 09/12 Pre-transplant evaluation for CKD (chronic kidney disease) (Acute) Secondary hyperparathyroidism (Chronic) Chronic diarrhea (Acute) Cardiomyopathy (Acute) LVEF 59% on 06/16 Cervical spondylosis (Acute 08/24/07) Cirrhosis (Acute 11/15/13) from acute Hep B in 2012 Leg cramps (Chronic 12/22/17) Osteopenia (Acute 11/18/12) DEXA 10/2012; T -1.2 at hip DEXA 05/02/14; T -2.0 hip Shoulder pain (Acute 08/24/07) Advance directive on file (Acute) Hypothyroidism (Chronic) Gastro-esophageal reflux disease without esophagitis (Chronic) EGD @ [facility] [place] 12/16/18 Anemia (Chronic) Hearing loss (Chronic) ENT 12/21/18 High blood cholesterol (Chronic) Medical History Abdominal aortic aneurysm (AAA) without rupture (01/04/16) repaired 09/202102/26/13-CT scan infra-renal, 3.1 cm, 03/16/2018 [facility] [place] V[facility] Dr Moody. 3.7cm 01/04/16- ultrasound 3.2 cm 01/04/16-Abd US 3.2 cm diameter 07/2015 - 3.5 cm rechecked 01/01/18 note 04/18/20 substantial increase in last 6 mos, CTA ordered Acute and chronic respiratory failure with hypoxia Acute kidney injury superimposed on chronic kidney disease Acute on chronic systolic (congestive) heart failure Acute respiratory failure with hypoxia BCC (basal cell carcinoma), face (07/05/20) 05/14/20 right nasal ala- shave biopsy. Basal Cell Ca, moved to hx and BCC to problem list. 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 Basal Cell Ca, moved to hx and BCC to problem list. Surgical History Bilateral salpingectomy with oophorectomy Colonoscopy - MAC (09/27/12) DR CANCHOLA, REPEAT 10 YRS. EGD W/ BS (08/12/12) DR CANCHOLA History of AAA (abdominal aortic aneurysm) repair (~10/01/21) 10/01/21 [facility] [place] Vascular Hysterectomy, Laproscopic (~03/1984) S/P exploratory laparotomy (~03/2020) 04/24/20 [facility] [place] with lysis of adhesions Status post Mohs surgery (07/05/20) right nasal ala for BCC Status post surgery (09/07/18) right external iliac to right renal artery bypass with reversed rifht greater saphenous vein, [facility] [place] Family History Grandmother Essential hypertension Mother , age 68 of ovarian cancer Ovarian cancer Father , age 60 of emphysema Emphysema lung Smoker Sister Essential hypertension Brother , age 34 of suicide Suicide Son No problems noted. Daughter No problems noted. Other Abdominal aortic aneurysm (AAA) without rupture Social History Smoking/Tobacco Use Status: Former Tobacco Use Quit Date: 04/27/08 Tobacco: How many years used: 45 Smoking risk assessment performed?: Yes Alcohol Intake: current Alcohol Intake frequency: holidays/special occasions on ly Alcohol type: wine Drug use: Never Substance use type: does not use Caregiver/Support person: Yes Foster care: No Household members: spouse Housing: house Number of Children: 2 number of grandchildren: 3 Communication Needs: Corrective Lenses Education Level: college Do you need help understanding health information?: Rarely 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, 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 Pets and animals: Yes Current gender identity: female What is your relationship status?: How often do you talk on the phone with friends or family?: three or more times per week How often do you get together with friends or relatives?: once per week Panel score (0-1 are the most socially isolated patients): 2 What type of physical activity do you participate in: none Special yanira needs: No Agree to transfusion: Yes Seatbelt use: always Drive intox or ride w/intox professional 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 She felt her health was under control until surgery at [facility] [place]. Surprised to find herself so debilitated. Visit Medication and Allergies Active Medications Generic Name Dose Route Start Last Admin Trade Name Freq PRN Reason Stop Dose Admin Acetaminophen 0 mg 02/22/22 21:18 Acetaminophen 325 Mg Tab PO Q4H PRN PRN Al Hydrox/Mg Hydrox/Simethicone 30 ml 02/22/22 21:18 Mylanta Suspension 30 Ml Cup PO Q2H PRN PRN Amlodipine Besylate 5 mg 02/24/22 08:30 02/24/22 09:34 Amlodipine 5 Mg Tab PO 5 mg DAILY WILFRED Administration Aspirin 81 mg 02/23/22 08:30 02/24/22 09:34 Aspirin E.C. 81 Mg Tabec PO 81 mg DAILY WILFRED Administration Atorvastatin Calcium 80 mg 02/23/22 20:00 02/23/22 20:09 Atorvastatin 40 Mg Tab PO 80 mg QPM WILFRED Administration Carvedilol 12.5 mg 02/23/22 08:30 02/24/22 09:35 Carvedilol 12.5 Mg Tab PO 12.5 mg BID WILFRED Administration Cimetidine 300 mg 02/23/22 20:00 02/24/22 09:34 Cimetidine 300 Mg Tab PO 300 mg BID WILFRED Administration Clopidogrel Bisulfate 75 mg 02/23/22 08:30 02/24/22 09:34 Clopidogrel 75 Mg Tab PO 75 mg DAILY WILFRED Administration Dimethicone/Zinc Oxide 0 gm 02/22/22 21:13 Dustin Protect Cream 142 Gm Tube TP PRN PRN Docusate Sodium 100 mg 02/22/22 21:18 Docusate Sodium 100 Mg Cap PO TID PRN PRN Furosemide 20 mg 02/23/22 08:30 02/24/22 09:34 Furosemide 20 Mg Tab PO 20 mg BID DIURETIC WILFRED Administration Gabapentin 300 mg 02/22/22 22:00 02/23/22 21:11 Gabapentin 300 Mg Cap PO 300 mg HS WILFRED Administration Heparin Sodium (Porcine) 5,000 units 02/23/22 22:00 02/24/22 05:47 Heparin 5,000 Units/Ml Vial SC 5,000 units Q8H WILFRED Administration Hydralazine HCl 25 mg 02/24/22 08:30 02/24/22 09:34 Hydralazine 25 Mg Tab PO 25 mg TID WILFRED Administration Sodium Chloride 500 mls @ 0 mls/hr 02/22/22 21:13 Saline 500ml Bag IV PRN PRN As Directed IV Miscellaneous Supplies 1 each 02/22/22 21:15 Iv Access IV DIRECTED [facility] Isosorbide Dinitrate 20 mg 02/23/22 08:30 02/24/22 09:34 Isosorbide Dinitrate 10 Mg Tab PO 20 mg TID WILFRED Administration Levothyroxine Sodium 75 mcg 02/23/22 06:00 02/24/22 05:47 Levothyroxine 75 Mcg Tab PO 75 mcg 0600 WILFRED Administration Magnesium Hydroxide 30 ml 02/22/22 21:18 Milk Of Magnesia 30 Ml Cup PO DAILY PRN PRN Polyethylene Glycol 17 gm 02/22/22 21:18 Polyethylene Glycol 3350 17 Gm Packet PO DAILY PRN PRN Constipation Sodium Chloride 0 ml 02/22/22 21:13 Normal Saline Flush 10 Ml Syr IVP PRN PRN Trazodone HCl 300 mg 02/23/22 22:00 02/23/22 23:29 Trazodone 100 Mg Tab PO 300 mg HS WILFRED Administration Allergies Iodinated Contrast Media Allergy (Severe, Unverified 02/22/22 20:00) Anaphylaxis shellfish derived Allergy (Unverified 02/22/22 20:00) Exam Narrative Exam Narrative: Physical Exam: Gen: Patient of apparent stated age, NAD Head and face: no facial or cranial abnormalities Neck: Supple, no meningismus, no occipital tenderness CV: + S1, S2, RRR, no murmur Resp: CTA B/L Abd: soft, nontender, nondistended Ext: No edema. No clubbing or cyanosis. No bony deformity. Neuro Exam: Language: fluency, naming, repetition, and comprehension intact; Mental Status: AAOx3, current events intact, fund of knowledge intact; Speech: no dysarthria Cranial nerves: Funduscopy: not performed CN II: visual carranza intact CN III, IV, : extraocular movements intact, no nystagmus, pupils symmetric and reactive to light CN V: face sensation intact to LT and temp CN VII: no facial asymmetry noted CN VIII: hearing intact bilaterally CN IX, X: palate rises symmetrically CN XI: trapezius/SCM 5/5 bilaterally CN XII: protrudes tongue symmetrically Sensory: intact to LT, temp, vibration, and joint position in all extremities Motor: bulk and tone intact. Fine motor movements intact bilaterally. No pronator drift. Strength 5/5 throughout including the deltoids, biceps, triceps, wrist extensors, hip flexors, knee flexors, knee extensors, ankle flexors, and ankle extensors. Reflexes: 2+ at the biceps, triceps, brachioradialis, patella, and achilles tendons bilaterally; toes down going bilaterally; Coordination: FTN and HTS intact bilaterally Gait: not tested Results Last Vital Signs Temp 99.3 F 02/24/22 08:01 Pulse 57 L 02/24/22 08:01 Resp 17 02/24/22 08:01 BP 145/56 H 02/24/22 08:01 Pulse Ox 99 02/24/22 08:01 Labs Result diagrams: 02/24/22 06:50 02/24/22 06:50 Labs: Laboratory Results - last 24 hr 02/24/22 02/24/22 02/24/22 06:50 06:50 06:50 WBC 5.55 RBC 4.01 Hgb 11.6 Hct 35.1 L MCV 88 MCH 28.9 MCHC 33.0 RDW 19.1 H Plt Count 176 MPV 10.6 Sodium 145 Potassium 3.3 L Chloride 108 H Carbon Dioxide 25.1 Anion Gap 11.9 H BUN 31 H Creatinine 2.4 H Est GFR (CKD-EPI 2020) 20.80 Glucose 102 Hemoglobin A1c 5.8 H Calcium 8.3 L Magnesium 2.1 Iron TIBC Transferrin % Sat Ferritin Triglycerides 84 Total Cholesterol 121 LDL Cholesterol, Calc 69 HDL Cholesterol 36 L Vitamin B12 176 L 02/24/22 02/24/22 06:50 06:50 WBC RBC Hgb Hct MCV MCH MCHC RDW Plt Count MPV Sodium Potassium Chloride Carbon Dioxide Anion Gap BUN Creatinine Est GFR (CKD-EPI 2020) Glucose Hemoglobin A1c Calcium Magnesium Iron 22 L TIBC 211 L Transferrin % Sat 10 L Ferritin 330 H Triglycerides Total Cholesterol LDL Cholesterol, Calc HDL Cholesterol Vitamin B12
--- NOTE | 2022-02-24 17:05 | CMDISCH_ITS ---
- If Service Date Differs Date of service: 02/24/22 Time of Service: 17:05 LACE Index Scoring Tool - Questions: Length of Stay (in days): 2 Acuity (Admit via E.D.?): Yes Comorbidities: Cerebrovascular Disease, Chronic Pulmonary Disease, Liver or Renal Disease E.D. Visits: 1 - Answers: Total Score: 11 Risk of Readmission: High Risk Care Management Discharge Reason for Hospitalization: CVA Discharge Plan: Charlene will be discharged home with no new services. She will follow up with her community providers aand plan of care and transport with family. Patient/Family Education Needs: Review of discharge instructions, activity, l imitations, diet, medications, follow up plan, Ask Me Three
--- NOTE | 2022-02-24 18:36 | NUR.NOTE ---
At patient request medications that were being stored in pharmacy have been returned to patient. Nursing Note:
--- NOTE | 2022-02-24 18:46 | DSE_ITS ---
Date of service: 02/24/22 Time of Service: 18:46 DS: Diagnosis Discharge Diagnosis (1) AMS (altered mental status): Status: Acute (2) B12 deficiency: Status: Acute (3) Syncope: Status: Chronic (4) HTN (hypertension): Status: Chronic (5) Hyperlipidemia: Status: Chronic (6) Hypertensive kidney disease with CKD stage IV: Status: Acute Discharge Plan Disposition Patient Disposition: HOME Condition: Stable Discharge Details Reason For Visit: CVA, HTN, Cardiomyopathy, Hypokalemia Admit Date/Time: 02/22/22 21:13 Admit Provider: Regan Monteiro Attending Provider: Regan Monteiro Primary Care Provider: Lexus Lawson Hospital Course Hospital Course: Ms Harmon is a 71 year old female with PMHx of hypertension, hyperlipidemia, hypertensive kidney disease, renal artery stenosis s/p stenting, who was a patient on [facility] hospitalist service from 02/22/22 until 02/24/22, having presented after an episode of confusion, tremors, generalized weakness, and loss of consciousness at home. Based on the CT head w/o contrast done in the ED, showing a possible subacute vs chronic lacunar infarct in the right caudate nucleus, the patient was started was started on dual antiplatelet therapy and had the dose of her statin increased. Permissive hypertension was pursued. Her symptoms entirely resolved by the morning of 02/23/22. She had a negative MRI of the brain, MRA brain/neck, and her echocardiogram did not reveal any intracardiac shunt by a bubble study. She had normal size atria, preserved LVEF (55-60%). She was evaluated by neurology who recommended discontinuation of plavix, and decrease of the dose of a statin. She was recommended a cardiac event recorder given a syncopal episode two weeks prior to presentation as well as report of a loss of consciousness by the patient's (the patient herself did not remember this happening). She did not have any arrhythmic events on telemetry. There was no evidence of ACS by troponins/EKGs. Transient global amnesia is a possibility. B12 deficiency was identified on her bloodwork and is recommended to be repleted. She had a low grade fever on presentation to the ED, but this did not recur on this admission. There was no evidence of an infectious process by CXR or UA. Her COVID-19 PCR was negative. She did not receive treatment with antibiotics. The patient is instructed to return to the ER should the fever recur. Charlene is back to baseline and is stable for discharge home. Care for patient as well as completion of her discharge summary on day of disch susan took 45 minutes. Home Meds and New Rx's Prescriptions: New cyanocobalamin (vitamin B-12) 1,000 mcg capsule 1,000 mcg PO DAILY Qty: 30 0RF Continued clonidine HCl 0.1 mg tablet 0.1 mg PO PRN Qty: 10 2RF Hold Instructions: Home Medication placed on hold at Doctor's office Rx Instructions: only take if BP > 180 trazodone 300 mg tablet 300 mg PO QHS Qty: 90 3RF lidocaine 5 % ointment 1 applic topical QID PRN (Reason: pain) Qty: 30 0RF loperamide [Imodium A-D] 2 mg tablet 2 mg PO QID PRN (Reason: loose stool) Qty: 20 0RF Rx Instructions: acute diarrhea aspirin [Aspir-81] 81 MG tablet,delayed release (DR/EC) 81 mg PO DAILY carvedilol 12.5 mg tablet 12.5 mg PO BID Qty: 180 3RF Rx Instructions: per [facility] [place] 01/21/19 isosorbide dinitrate 20 mg tablet 20 mg PO TID Qty: 300 6RF Rx Instructions: per [facility] [place] 01/21/19 hydralazine 25 mg tablet 25 mg PO TID Qty: 300 7RF Rx Instructions: per [facility] [place] 01/21/19 atorvastatin 20 mg tablet 20 mg PO QHS Qty: 90 3RF furosemide 20 mg tablet 20 mg PO BID Qty: 180 3RF Rx Instructions: Take in AM and at 4PM cimetidine 400 mg tablet 400 mg PO BID Qty: 180 3RF amlodipine 5 mg tablet 5 mg PO DAILY Qty: 90 3RF Rx Instructions: 1 daily gabapentin 300 mg capsule 300 mg PO QHS Qty: 90 3RF acetaminophen 500 mg Tablet 500 mg PO PRN PRN levothyroxine 50 mcg tablet 75 mcg PO DAILY Discharge Instructions Instructions: Syncope (DC), Altered Mental Status (ED) Additional Instructions: Return to the hospital with any more episodes of confusion/fainting, if you develop a fever, bleeding, chest pain, or shortness of breath. Stand Alone Forms: Nursing Discharge Form Referrals: Lexus Lawson NP [Primary Care Provider] - () Activity:: Activity as Tolerated Equipment/Supplies:: No Equipment Needed Diet:: Low Sodium Discharge Orders Discharge Orders: Discharge Order (Routine); Ordered 02/24/22 Ordered By: Akua Baugh Other Ambulatory Orders: Cardiac Event Recorder (Routine) Timeframe: 1 Day Facility: [facility] - Location: Respiratory Therapy Ordered By: Akua Baugh DS: Summary Time Spent with Patient providing and/or coordinating discharge services: Greater than 30 minutes Status at Discharge Functional status at discharge: independent ambulation Overall status at discharge: patient is back to baseline Mental Status: mental status grossly normal Speech and Movement: speech and movement normal Mood: congruent mood Affect: normal affect Exam Narrative Exam Narrative: General: Pleasant female who feels warm to touch but does not have a fever, A&Ox3, NAD, at her baseline mental status HEENT: EOMI, MMM Heart: RRR, no m/r/g Lungs: CTAB Abdomen: soft, nontender, nondistended Extremities: no edema BLEs, able to move all 4 extremities. Psych Mental Status: mental status grossly normal Speech and Movement: speech and movement normal Mood: congruent mood Affect: normal affect DS: Data Vitals/I&O Vitals and I&O: Vital Signs Temperature 36.5 C 02/24/22 15:26 Temperature Source Tympanic 02/24/22 15:26 Pulse 62 02/24/22 15:26 Pulse Rhythm Regular 02/24/22 03:00 Pulse 80 02/22/22 23:10 Respiratory Rate 16 02/24/22 15:26 Respiratory Effort Non-Labored 02/24/22 03:00 Respiratory Depth Normal 02/24/22 03:00 Respiratory Pattern Normal 02/24/22 03:00 Blood Pressure 116/68 02/24/22 15:26 Blood Pressure Mean 88 02/22/22 23:01 Blood Pressure Position Sitting 02/22/22 19:40 Pulse Oximetry 95 02/24/22 15:26 Oxygen Delivery Method Room Air 02/24/22 15:26 Oxygen Flow Rate 0 02/24/22 15:26 Pain Level 0 02/24/22 15:26 Intake & Output 02/23/22 02/24/22 02/24/22 23:59 11:59 23:59 Intake Total 1480 / 2696.667 810 / 810 Output Total 3000 / 3900 1000 / 1500 500 / 1500 Balance -1520 / -1203.333 -1000 / -690 310 / -690 Weight 43.2 kg Intake: IV 999 / 1975.667 Oral 480 / 720 810 / 810 Output: Urine 3000 / 3900 1000 / 1500 500 / 1500 Other: Urine Color Yellow Yellow Straw Urine Appearance Clear Clear Clear Urine Odor None Normal Voiding Methods Toilet Toilet Toilet Data Completed and Pending Completed studies during hospitalization [Text1]: CT head w/o contrast 02/22/22: 1. No acute intracranial process. 2. Focus of decreased attenuation in the right caudate nucleus.? This may represent an old lacunar infarct. 3. If there is continued clinical concern, an MRI may be obtained for further evaluation.? CXR 02/22/22: No acute pulmonary findings. MRI brain 02/24/22: No evidence of acute infarct.? Mild microvascular changes. MRA brain 02/24/22: Normal MRA examination of the [place]. MRA neck 02/24/22: No evidence of dissection, occlusion or significant stenosis. Echo: Normal left ventricular wall thickness and chamber size.? Estimated ejection fraction 55 to 60%.? Wall motion is normal Normal right ventricular size and systolic function Both atria are normal in size No intracardiac shunting is demonstrated during infusion of agitated saline Mildly sclerotic trileaflet aortic valve Mildly thickened mitral leaflets with trace to mild regurgitation Normal tricuspid valve with trace to mild regurgitation.? Estimated right ventricular systolic pressure is 27 mmHg Labs on day of discharge: Labs from last 24 hours 02/24/22 02/24/22 02/24/22 06:50 06:50 06:50 WBC 5.55 RBC 4.01 Hgb 11.6 Hct 35.1 L MCV 88 MCH 28.9 MCHC 33.0 RDW 19.1 H Plt Count 176 MPV 10.6 Sodium Potassium Chloride Carbon Dioxide Anion Gap BUN Creatinine Est GFR (CKD-EPI 2020) Glucose Hemoglobin A1c Calcium Magnesium Iron 22 L TIBC 211 L Transferrin % Sat 10 L Ferritin 330 H Triglycerides Total Cholesterol LDL Cholesterol, Calc HDL Cholesterol Vitamin B12 02/24/22 02/24/22 06:50 06:50 WBC RBC Hgb Hct MCV MCH MCHC RDW Plt Count MPV Sodium 145 Potassium 3.3 L Chloride 108 H Carbon Dioxide 25.1 Anion Gap 11.9 H BUN 31 H Creatinine 2.4 H Est GFR (CKD-EPI 2020) 20.80 Glucose 102 Hemoglobin A1c 5.8 H Calcium 8.3 L Magnesium 2.1 Iron TIBC Transferrin % Sat Ferritin Triglycerides 84 Total Cholesterol 121 LDL Cholesterol, Calc 69 HDL Cholesterol 36 L Vitamin B12 176 L PFSH All Active Problems (Updated 02/24/22 @ 16:16 by Bertha Hickman MD) B12 deficiency (Acute) Syncope (Chronic) AMS (altered mental status) (Acute) Discharge planning issues (Acute) DVT prophylaxis (Acute) Transient neurologic deficit (Acute) Hyperlipidemia (Chronic) HTN (hypertension) (Chronic) CVA (cerebral vascular accident) (Acute) Shingles (Acute) Hypertensive kidney disease with CKD stage IV (Acute) 06/25/21 [facility] [place] Middle insomnia (Chronic) CKD (chronic kidney disease) stage 4, GFR 15-29 ml/min (Chronic) G4/A3 Renovascular hypertension (Chronic) 02/19/21 [facility] [place] Hypertensive kidney disease with CKD stage IV Renal artery stenosis (Chronic) (R) > (L) (R) YING bypass graft 09/12 Pre-transplant evaluation for CKD (chronic kidney disease) (Acute) Secondary hyperparathyroidism (Chronic) Chronic diarrhea (Acute) Cardiomyopathy (Acute) LVEF 59% on 06/16 Cervical spondylosis (Acute 08/24/07) Cirrhosis (Acute 11/15/13) from acute Hep B in 2012 Leg cramps (Chronic 12/22/17) Osteopenia (Acute 11/18/12) DEXA 10/2012; T -1.2 at hip DEXA 05/02/14; T -2.0 hip Shoulder pain (Acute 08/24/07) Advance directive on file (Acute) Hypothyroidism (Chronic) Gastro-esophageal reflux disease without esophagitis (Chronic) EGD [place] [facility] 12/16/18 Anemia (Chronic) Hearing loss (Chronic) ENT 12/21/18 High blood cholesterol (Chronic) Medical History Abdominal aortic aneurysm (AAA) without rupture (01/04/16) repaired 09/202102/26/13-CT scan infra-renal, 3.1 cm, 03/16/2018 [facility] [place] Moody. 3.7cm 01/04/16- ultrasound 3.2 cm 01/04/16-Abd US 3.2 cm diameter 07/2015 - 3.5 cm rechecked 01/01/18 note 04/18/20 substantial increase in last 6 mos, CTA ordered Acute and chronic respiratory failure with hypoxia Acute kidney injury superimposed on chronic kidney disease Acute on chronic systolic (congestive) heart failure Acute respiratory failure with hypoxia BCC (basal cell carcinoma), face (07/05/20) 05/14/20 right nasal ala- shave biopsy. Basal Cell Ca, moved to hx and BCC to problem list. 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 Basal Cell Ca, moved to hx and BCC to problem list. Surgical History Bilateral salpingectomy with oophorectomy Colonoscopy - MAC (09/27/12) DR CANCHOLA, REPEAT 10 YRS. EGD W/ BS (08/12/12) DR CANCHOLA History of AAA (abdominal aortic aneurysm) repair (~10/01/21) 10/01/21 [facility] [place] Hysterectomy, Laproscopic (~03/1984) S/P exploratory laparotomy (~03/2020) 04/24/20 [facility] with lysis of adhesions Status post Mohs surgery (07/05/20) right nasal ala for BCC Status post surgery (09/07/18) right external iliac to right renal artery bypass with reversed rifht greater saphenous vein, [facility] Family History Grandmother Essential hypertension Mother , age 68 of ovarian cancer Ovarian cancer Father , age 60 of emphysema Emphysema lung Smoker Sister Essential hypertension Brother , age 34 of suicide Suicide Son No problems noted. Daughter No problems noted. Other Abdominal aortic aneurysm (AAA) without rupture Social History (Reviewed 12/04/21 @ 10:04 by PARKER Laws Smoking/Tobacco Use Status: Former Tobacco Use Quit Date: 04/27/08 Tobacco: How many years used: 45 Smoking risk assessment performed?: Yes Alcohol Intake: current Alcohol Intake frequency: holidays/special occasions only Alcohol type: wine Drug use: Never Substance use type: does not use Caregiver/Support person: Yes Foster care: No Household members: spouse Housing: house Number of Children: 2 number of grandchildren: 3 Communication Needs: Corrective Lenses Education Level: college Do you need help understanding health information?: Rarely 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, 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 Pets and animals: Yes Current gender identity: female What is your relationship status?: How often do you talk on the phone with friends or family?: three or more times per week How often do you get together with friends or relatives?: once per week Panel score (0-1 are the most socially isolated patients): 2 What type of physical activity do you participate in: none Special yanira needs: No Agree to transfusion: Yes Seatbelt use: always Drive intox or ride w/intox bicycle taxi 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 She felt her health was under control until surgery at [facility]. Surprised to find herself so debilitated.
[2022-02-24 19:45] VITALS: PULSE 68
== END 2022-02-24 20:06 | disposition home or self-care (01) | DRG 71 ==
LOC: ER 22:19 → MS 23:24
PROVIDERS: Emergency Medicine; Internal Medicine; Admitting Provider Family Medicine; Emergency Provider Emergency Medicine; PCP Nurse Practitioner Adult Health; Visit Provider Family Medicine
DX: G45.4 Transient global amnesia (principal); I42.9 Cardiomyopathy, unspecified; N18.4 Chronic kidney disease, stage 4 (severe); N25.81 Secondary hyperparathyroidism of renal origin; J96.11 Chronic respiratory failure with hypoxia; E78.5 Hyperlipidemia, unspecified; R29.818 Other symptoms and signs involving the nervous system; R41.82 Altered mental status, unspecified; E53.8 Deficiency of other specified B group vitamins; Z95.828 Presence of other vascular implants and grafts; I15.0 Renovascular hypertension; I70.1 Atherosclerosis of renal artery; K52.9 Noninfective gastroenteritis and colitis, unspecified; M47.812 Spondylosis without myelopathy or radiculopathy, cervical region; R25.2 Cramp and spasm; M85.80 Other specified disorders of bone density and structure, unspecified site; E03.9 Hypothyroidism, unspecified; K21.9 Gastro-esophageal reflux disease without esophagitis; D64.9 Anemia, unspecified; E78.00 Pure hypercholesterolemia, unspecified; E87.6 Hypokalemia; R55 Syncope and collapse; I73.9 Peripheral vascular disease, unspecified; G47.00 Insomnia, unspecified; R25.1 Tremor, unspecified; R53.1 Weakness
CPT/HCPCS: 36415; 36416; 70544; 70547; 80048; 80053; 80061; 80307; 82550; 82962; 85027; 87637; 93005; 93306; 96365; 99223; 99285; 70450; 70551; 71045; 80320; 81003; 81015; 82607; 82728; 83036; 83540; 83550; 83735; 84443; 84484; 85025; 85610; 85730; 93010; 99233; 99239; J1644; J3480

== ENCOUNTER 2022-02-27 10:55 | Outpatient (CLI) | payer MEDICARE, BC, SELFPAY | END 2022-02-27 10:56 | disposition home or self-care (01) | LOC: CARDOPNVT 10:55 | PROVIDERS: PCP Nurse Practitioner Adult Health; Visit Provider Internal Medicine | DX: R55 Syncope and collapse (principal) | CPT/HCPCS: 93270 ==

== ENCOUNTER → 2022-03-10 12:27 | Outpatient (CLI) | payer MEDICARE, BC, SELFPAY ==
--- NOTE | 2022-03-10 12:15 | DI.RAD_ITS ---
Exam(s) XR RIBS LT W PA LAT CHEST XR THORACIC SPINE COMPLETE CLINICAL HISTORY suspect L posterior rib fx t10/11/12 region, thoracic pain, lt rib pain,. COMPARISON: CR,XR XR CHEST 1V IN DI DEPT from 02/22/2022 CR XR THORACIC SPINE COMPLETE from 03/10/2022 TECHNIQUE:: PA and lateral views of the chest and 3 views of the left ribs were performed. PA and l ateral views of the thoracic spine. FINDINGS: LUNGS: Clear. No pleural abnormality seen. HEART: Normal size. Stent in descending and upper abdominal aorta. MEDIASTINUM: Normal. BONES: No displaced rib fracture is seen. No compression fractures are seen in the thoracic spine. Small endplate osteophytes. No bony destructive lesion is seen. OTHER FINDINGS: Monitoring device over upper left chest. IMPRESSION: 1. No evidence of thoracic spine fracture. No visible rib fracture. 2. No acute pulmonary findings.
== END ==
PROVIDERS: PCP Nurse Practitioner Adult Health; Visit Provider Nurse Practitioner Adult Health
DX: M54.6 Pain in thoracic spine (principal); R07.81 Pleurodynia; T14.90XA Injury, unspecified, initial encounter; W19.XXXA Unspecified fall, initial encounter
CPT/HCPCS: 71046; 71100; 72072

== ENCOUNTER 2022-04-01 09:12 | Outpatient (CLI) | payer MEDICARE, BC, SELFPAY ==
--- NOTE | 2022-04-01 12:23 | W.CARDEVENT ---
Date of service: 04/01/22 Time of Service: 12:23 Cardiac Event Recorder Referring Provider:: Lexus Lawson Indications:: Syncope Cardiac Event Note: This is a 30-day event monitor that was ordered for syncope. Patient was only monitored for a total period of less than 12 hours During this extremely short period of monitoring the average heart rate was 60. Minimum was 56, maximum 103 No dysrhythmias were recorded No patient symptoms were reported
== END 2022-04-01 09:13 | disposition home or self-care (01) ==
LOC: CARDOPNVT 09:12
PROVIDERS: PCP Nurse Practitioner Adult Health; Visit Provider Internal Medicine Cardiovascular Disease
DX: R55 Syncope and collapse (principal)
CPT/HCPCS: 93272

== ENCOUNTER 2022-04-14 08:33 | Day surgery (SDC) | payer MEDICARE, BC, SELFPAY ==
[2022-04-14 09:58] VITALS: BP 175/84; PULSE 66; O2SAT 97
[2022-04-14] MEDS: Tropicam./Phenyleph. (1/2.5%) 5 ML BTL OS ×3 (10:00→10:21)
[2022-04-14 10:05] VITALS: BP 202/82; PULSE 67; RESP 16; TEMP 36.5; O2SAT 97
--- NOTE | 2022-04-14 10:46 | ANES.PREOP_ITS ---
General Info Date of Service Date Performed: 04/14/22 Height: 5 ft Weight: 45.6 kg Body Mass Index (BMI): 19.6 Surgical Procedure: Operation Date: 04/14/22 11:40 Proposed Procedure Side Surgeon p Cataract Extraction with IOL Implant Left Fausto Luciano MD Meds Allergies and Home Medications Allergies Allergy/AdvReac Type Severity Reaction Status Date / Time Iodinated Contrast Media Allergy Severe Anaphylaxis Unverified 04/14/22 09:52 shellfish derived Allergy Unverified 04/14/22 09:52 Home Medication Medication Instructions Recorded aspirin 81 mg tablet,delayed 81 mg PO DAILY 04/19/13 release (Aspir-) acetaminophen 500 mg tablet 500 mg PO PRN PRN 02/16/19 clonidine HCl 0.1 mg tablet 0.1 mg PO PRN hypertensive crisis 03/06/21 #10 tabs carvedilol 12.5 mg tablet 12.5 mg PO BID #180 tabs 04/17/21 hydralazine 25 mg tablet 25 mg PO TID #300 tabs 04/23/21 isosorbide dinitrate 20 mg tablet 20 mg PO TID #300 tabs 04/23/21 atorvastatin 20 mg tablet 20 mg PO QHS #90 tab-caps 07/23/21 furosemide 20 mg tablet 20 mg PO BID #180 tabs 07/23/21 lidocaine 5 % topical ointment 1 applic topical QID PRN pain #30 11/12/21 grams amlodipine 5 mg tablet 5 mg PO DAILY #90 tabs 12/03/21 cimetidine 400 mg tablet 400 mg PO BID #180 tabs 12/03/21 loperamide 2 mg tablet (Imodium 2 mg PO QID PRN loose stool #20 12/20/21 A-D) tabs gabapentin 300 mg capsule 300 mg PO QHS leg pain #90 caps 12/23/21 levothyroxine 50 mcg tablet 75 mcg PO DAILY 02/22/22 cyclobenzaprine 10 mg tablet 5 - 10 mg PO TID PRN muscle spasm 03/10/22 #30 tabs trazodone 300 mg tablet 150 - 300 mg PO QHS sleep 04/10/22 Current Visit Medications: Current Medications Generic Name Dose Route Start Last Admin Trade Name Freq PRN Reason Stop Dose Admin Acetaminophen 1,000 mg 04/14/22 06:00 Acetaminophen 500 Mg Tab PO Q4H PRN PRN Miscellaneous Medication 0 ml 04/14/22 06:00 Prednisolone 1%, Moxifloxacin 0.5%, Nepafenac 0.1% 5ml Btl OS DIRECTED [facility] Miscellaneous Medication 0 ml 04/14/22 06:00 04/14/22 10:21 Tropicam./Phenyleph. (1/2.5%) 5 Ml Btl OS 1 drp DIRECTED WILFRED Administration Tetracaine HCl 0 ml 04/14/22 06:00 Tetracaine 0.5% 4 Ml Btl OS DIRECTED WILFRED PFSH Active Problems Active Problems: Problem Status Onset Code Cervical spondylosis 08/24/07 M47.812 Cirrhosis 11/15/13 K74.60 Osteopenia 11/18/12 M85.80 High blood cholesterol E78.00 Renal artery stenosis ~2018 I70.1 Hearing loss H91.90 Advance directive on file Z78.9 Anemia D64.9 Hypothyroidism E03.9 Gastro-esophageal reflux disease without esophagitis ~11/2018 K21.9 CKD (chronic kidney disease) stage 4, GFR 15-29 ml/min N18.4 Cardiomyopathy ~2019 I42.9 Chronic diarrhea ~2019 K52.9 Secondary hyperparathyroidism N25.81 Middle insomnia G47.00 Hypertensive kidney disease with CKD stage IV ~01/2021 I12.9, N18.4 Syncope R55 B12 deficiency E53.8 Medical History Medical History Abdominal aortic aneurysm (AAA) without rupture (01/04/16) repaired 09/202102/26/13-CT scan infra-renal, 3.1 cm, 03/16/[address] [facility] [place] Moody. 3.7cm 01/04/16- ultrasound 3.2 cm 01/04/16-Abd US 3.2 cm diameter 07/2015 - 3.5 cm rechecked 01/01/18 note 04/18/20 substantial increase in last 6 mos, CTA ordered Acute and chronic respiratory failure with hypoxia Acute kidney injury superimposed on chronic kidney disease Acute on chronic systolic (congestive) heart failure Acute respiratory failure with hypoxia AMS (altered mental status) BCC (basal cell carcinoma), face (07/05/20) 05/14/20 right nasal ala- shave biopsy. Basal Cell Ca, moved to hx and BCC to problem list. 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 Basal Cell Ca, moved to hx and BCC to problem list. Nuclear sclerotic cataract of left eye Posterior subcapsular age-related cataract of left eye Pre-transplant evaluation for CKD (chronic kidney disease) (~05/2019) Not a candidate per [facility] Shingles Shoulder pain (08/24/07) Transient neurologic deficit Surgical History Surgical History Bilateral salpingectomy with oophorectomy Colonoscopy - MAC (09/27/12) DR CANCHOLA, REPEAT 10 YRS. EGD W/ BS (08/12/12) DR CANCHOLA History of AAA (abdominal aortic aneurysm) repair (~10/01/21) 10/01/21 [facility] [place] Vascular History of intestinal surgery Hysterectomy, Laproscopic (~03/1984) S/P exploratory laparotomy (~03/2020) 04/24/20 [facility] with lysis of adhesions Status post Mohs surgery (07/05/20) right nasal ala for BCC Status post surgery (09/07/18) right external iliac to right renal artery bypass with reversed rifht greater saphenous vein, [facility] Tobacco Smoking/Tobacco Use Status: Former Tobacco Use Alcohol Alcohol Intake: current Alcohol intake frequency: holidays/special occasions only Alcohol type: wine Substance Use Substance use: Never Substance use type: does not use Vital Signs and Lab Results Vital Signs Most Recent Vital Signs in EMR: Most Recent Vital Signs Temp Pulse Resp BP Pulse Ox 36.5 C 67 16 202/82 H 97 04/14/22 10:05 04/14/22 10:05 04/14/22 10:05 04/14/22 10:05 04/14/22 10:05 Lab Results Blood Type / Crossmatch: No Data to Display Complete Blood Count: No Data to Display Complete Metabolic Panel: No Data to Display Liver Function Panel: No Data to Display Coagulation Panel: No Data to Display Cardiac Panel: No Data to Display Arterial Blood Gas: No Data to Display Venous Blood Gas: No Data to Display Pancreas Panel: No Data to Display Thyroid Panel: No Data to Display Infectious Disease: No Data to Display Blood Cultures: No Data to Display Toxicology Panel: No Data to Display Anesthesia Assessment and Plan Anesthesia History Personal History: No History of Anesthesia Complications Family History: No Family History of Anesthesia Complications Exercise Tolerance Exercise Tolerance: Metabolic Equivalents>4 Pertinent Negatives Pertinent Negatives: No Symptoms of GERD, No Major Cardiovascular Symptoms or Complaints (See negative ECHO 2021, Nuclear Stress test negative 08/25/18), No Major Pulmonary Symptoms or Complaints (Quit more than 10 years ago) and No History of CVA/TIA Cardiac & Pulmonary Exam Cardiac Exam: Normal S1/S2 Heart Sounds Pulmonary Exam: Clear Bilateral Breath Sounds Implantable Cardiac Device Does patient have a Pacemaker or an ICD?: No Airway Exam Known Difficult Airway: No Mallampati Class: 3 Mouth Opening: Normal (> 3cm) Thyromental Distance: Greater than 3 cm Neck Range of Motion: Full ROM Neck Circumference: Normal Teeth Condition: Normal Dentition ASA Classification ASA Score: ASA 2 Emergency Case?: No NPO Status NPO Status: NPO Clears >2 hours, Solids >8 hours Anesthesia Plan Resuscitation Status: Full Code Anesthesia Technique: MAC Anesthesia Airway Planned: Natural Airway Monitors Used: Standard Monitors
[2022-04-14 10:49] VITALS: BMI 19.6
[2022-04-14] MEDS: Tetracaine 0.5% 4 ML BTL OS (10:59)
[2022-04-14] MEDS: Lidocaine 2% Jelly 6 ML SYR (11:00)
[2022-04-14] MEDS: Povidone-Iodine Ophth 30 ML BTL (11:01)
[2022-04-14] MEDS: Duovisc Viscoelastic System EACH 1 EACH (11:06)
[2022-04-14] MEDS: Balanced Salt Soln.-PLUS 500 ML BAG (11:06)
[2022-04-14 11:27] VITALS: BP 192/83; PULSE 69; RESP 16; TEMP 36; O2SAT 96
--- NOTE | 2022-04-14 11:29 | PDOC.DSDIS_ITS ---
Date of service: 04/14/22 Time of Service: 11:29 Discharge Plan Disposition Patient Disposition: Home Discharge Details Attending Provider: Fausto Luciano Primary Care Provider: Lexus Lawson Home Meds and New Rx's Prescriptions: No Action clonidine HCl 0.1 mg tablet 0.1 mg PO PRN Qty: 10 2RF Hold Instructions: Home Medication placed on hold at Doctor's office Rx Instructions: only take if BP > 180 lidocaine 5 % ointment 1 applic topical QID PRN (Reason: pain) Qty: 30 0RF loperamide [Imodium A-D] 2 mg tablet 2 mg PO QID PRN (Reason: loose stool) Qty: 20 0RF Rx Instructions: acute diarrhea aspirin [Aspir-81] 81 MG tablet,delayed release (DR/EC) 81 mg PO DAILY carvedilol 12.5 mg tablet 12.5 mg PO BID Qty: 180 3RF Rx Instructions: per [facility] [place] 01/21/19 isosorbide dinitrate 20 mg tablet 20 mg PO TID Qty: 300 6RF Rx Instructions: per [facility] [place] d/c 01/21/19 hydralazine 25 mg tablet 25 mg PO TID Qty: 300 7RF Rx Instructions: per [facility] [place] d/c 01/21/19 atorvastatin 20 mg tablet 20 mg PO QHS Qty: 90 3RF furosemide 20 mg tablet 20 mg PO BID Qty: 180 3RF Rx Instructions: Take in AM and at 4PM cimetidine 400 mg tablet 400 mg PO BID Qty: 180 3RF amlodipine 5 mg tablet 5 mg PO DAILY Qty: 90 3RF Rx Instructions: 1 daily gabapentin 300 mg capsule 300 mg PO QHS Qty: 90 3RF cyclobenzaprine 10 mg tablet 5 - 10 mg PO TID PRN (Reason: muscle spasm) Qty: 30 0RF Rx Instructions: Muscle spasm of spine & ribs acetaminophen 500 mg Tablet 500 mg PO PRN PRN levothyroxine 50 mcg tablet 75 mcg PO DAILY trazodone 300 mg tablet 150 - 300 mg PO QHS Discharge Instructions Stand Alone Forms: Post-op Topical Cataract, Press Ganey (DSU) Discharge Orders Discharge Orders: Discharge Order (Routine); Ordered 04/14/22 Ordered By: Fausto Luciano DS: Diagnosis Discharge Diagnosis (1) Nuclear sclerotic cataract of left eye: Status: Resolved (2) Posterior subcapsular age-related cataract of left eye: Status: Resolved
--- NOTE | 2022-04-14 11:29 | W.ANESPOSTOP ---
Postoperative Evaluation Date, Time and Location Date Performed: 04/14/22 Time Performed: 11:29 Patient Location: Day Surgery Unit Vital Signs Most Recent Imported Vital Signs: Most Recent Vital Signs Temp Pulse Resp BP Pulse Ox 36.5 C 67 16 202/82 H 97 04/14/22 10:05 04/14/22 10:05 04/14/22 10:05 04/14/22 10:05 04/14/22 10:05 Most Recent Manually Entered Vital Signs: Adult Blood Pressure: 192/83 Heart Rate: 68 Respirations: 16 Oxygen Saturation (%): 96 Temperature (C): 36.0 C Pain Score (0-10 Scale): 0 Pain Score Most Recent Pain Score: Most Recent Pain Score Pain Level 0 04/14/22 10:05 Assessment Mental Status: Awake (Alert & Oriented to Patient Baseline) Airway and Respiratory Function: Patent airway with normal (patient baseline) respiratory exam Cardiovascular Function: Hemodynamically Stable Hydration Status: Adequately Hydrated Nausea & Vomiting: No Nausea or Vomiting Pain: Pt. Denies Any Pain Peripheral Nerve Block: Patient did not receive a nerve block
[2022-04-14 11:31] VITALS: BP 192/83; PULSE 68; RESP 16; TEMPC 36; O2SAT 96
--- NOTE | 2022-04-14 11:32 | W.PM.OP ---
Date of service: 04/14/22 Time of Service: 11:32 Operative Note Operative Note DATE OF PROCEDURE: 04/14/22 PRE-OP DIAGNOSIS: Nuclear/posterior subcapsular cataract, left eye POST-OP DIAGNOSIS: same PROCEDURE: Cataract extraction using phacoemulsification with intraocular lens implant, left eye SURGEON: Fausto Luciano ANESTHESIA TYPE: Local By Surgeon and MAC Refer to Anesthesia Record PATHOLOGY: none sent COMPLICATIONS: None Patient was transported to: same day Patient's condition: stable Implants: Asher and Asher / [employer] Tecnis [id number] Indications: Progressive decreased vision due to cataract, left eye Procedure Description: CATARACT SURGERY OPERATIVE REPORT PREOPERATIVE DIAGNOSIS: 1. Nuclear/posterior subcapsular cataract, left eye POSTOPERATIVE DIAGNOSIS: Same OPERATION: 1. Cataract extraction using phacoemulsification with posterior chamber intraocular lens implant, left eye. IOL: IOL Prop And Scenery Maker/Model: Asher & Asher / ROSEANNE Tecnis [id number] IOL Power: + 23.5 diopters IOL Serial Number: [id number] Optic Diameter: 6.0 mm Haptic/Overall Diameter: 13.0 mm PHACO INFO: Power Vyattaurion Vision System with OZil and Active Fluidics Cumulative Dispersed Energy (CDE): 17.33 seconds SURGEON: Fausto Luciano MD, SANDY ANESTHESIA: Monitored A [facility] (MAC), with local sub-tenon's anesthetic infiltration COMPLICATIONS: None SPECIMENS: None INDICATIONS FOR PROCEDURE: The patient is a 71-year-old lady with history of diminished visual acuity in her left eye secondary to the development of nuclear/posterior subcapsular cataract. She is significantly symptomatic that she desires cataract surgery and attempt to improve and maximize her vision. The option of cataract surgery was offered to the patient and she wished to proceed. PROCEDURE: The correct surgical eye was identified and marked as the left eye and the pupil was dilated in the preoperative area using mydriatics and cycloplegics. The dilated pupil size was 6.5 mm. The patient elected to proceed without oral sedation. The patient was brought to the operating room where cardiopulmonary monitoring was instituted and surgical time-out was performed, confirming the correct operative eye and IOL power. Topical anesthesia was administered and ophthalmic povidone-iodine 5% was instilled into the conjunctival fornices. Lidocaine gel was applied to the cornea and the yunior-ocular area was prepped with Betadine 10% solution and draped in the usual sterile fashion for intraocular surgery, including an aperture drape. A Tegaderm transparent film dressing was cut in half and used to cover the lashes and lid margins. Care was taken to sequester the lashes and lid margins under the Tegaderm dressing. A lid speculum was placed between the lids of the operative eye and the Power LuxOR Revalia operating microscope was maneuvered into position. [place] scissors were then used to make a conjunctival buttonhole approximately 6mm posterior to the limbus in the inferonasal quadrant. Blunt dissection was carried out to expose bare sclera, and a blunt-tipped sub-tenon?s anesthesia cannula was introduced and passed posteriorly along the globe where non-preserved plain lidocaine was injected into posterior sub-Tenon?s space. A sideport knife was used to make a paracentesis port superiorly/superiortemporally. Intraocular phenylephrine/lidocaine was injected int the anterior chamber.. The anterior chamber was filled with viscoelastic. A keratome knife was used to construct a 2-plane near-clear corneal tunnel extending 2.0mm into clear cornea temporally. A flap was raised on the anterior capsule and capsulorhexis forceps were used to complete a continuous curvilinear capsulorhexis of 5.0 mm. Balanced salt solution was then used to perform cortical cleaving hydrodissection and nuclear hydrodelineation until the lens could be freely rotated within the capsular bag. The lens nucleus was then disassembled and removed within the capsular bag and iris plane using phacoemulsification. Residual cortical material was removed using the 45-degree angled silicone I/A tip with 0.3mm port. The posterior capsule was carefully polished to remove as much residual lens epithelial cells as safely possible. The capsular bag was then inflated and the anterior chamber deepened with viscoelastic. The lens implant described above was inserted into the capsular bag using the ROSEANNE [place] Injector. A Kuglen hook was used to dial the IOL into position. Residual viscoelastic was then removed first from posterior to the IOL, then from the anterior chamber using the I/A handpiece. The lens implant was noted to center nicely within the capsular bag. The incisions were stromally hydrated, and the anterior chamber was reformed using BSS. Then 0.5cc of moxifloxacin 1.0mg/ml were injected into the capsular bag and anterior chamber. The incisions were checked with a Weck spear and found to be secure. Several drops of ophthalmic povidone-iodine 5% were then applied to the eye followed by two drops of Imprimis combination prednisolone/moxifloxacin/nepafenac solution. The drapes were removed and a clear plastic protective eye shield was placed over the eye. The patient was then returned to Same Day Surgery in stable condition.
== END 2022-04-14 12:05 | disposition home or self-care (01) ==
LOC: SUR 08:33
PROVIDERS: PCP Nurse Practitioner Adult Health; Visit Provider Ophthalmology
PROC: (CPT 66984; principal; 2022-04-14 11:30)
DX: H25.812 Combined forms of age-related cataract, left eye (principal)
CPT/HCPCS: 66984; V2632

== ENCOUNTER 2022-05-09 11:43 | Day surgery (SDC) | payer MEDICARE, BC, SELFPAY ==
[2022-05-09 12:35] VITALS: BP 154/78; PULSE 66; RESP 16; TEMP 36.4; O2SAT 96
--- NOTE | 2022-05-09 12:41 | W.ANESPRE ---
General Info Date of Service Date Performed: 05/09/22 Height: 5 ft Weight: 44.5 kg Body Mass Index (BMI): 19.1 Surgical Procedure: Operation Date: 05/09/22 13:40 Proposed Procedure Side Surgeon p Cataract Extraction with IOL Implant Right Fausto Luciano MD Meds Allergies and Home Medications Allergies Allergy/AdvReac Type Severity Reaction Status Date / Time Iodinated Contrast Media Allergy Severe Anaphylaxis Verified 05/09/22 12:22 shellfish derived Allergy Unverified 05/08/22 11:12 Home Medication Medication Instructions Recorded aspirin 81 mg tablet,delayed 81 mg PO DAILY 04/19/13 release (Aspir-) acetaminophen 500 mg tablet 500 mg PO PRN PRN 02/16/19 clonidine HCl 0.1 mg tablet 0.1 mg PO PRN hypertensive crisis 03/06/21 #10 tabs atorvastatin 20 mg tablet 20 mg PO QHS #90 tab-caps 07/23/21 furosemide 20 mg tablet 20 mg PO BID #180 tabs 07/23/21 lidocaine 5 % topical ointment 1 applic topical QID PRN pain #30 11/12/21 grams amlodipine 5 mg tablet 5 mg PO DAILY #90 tabs 12/03/21 cimetidine 400 mg tablet 400 mg PO BID #180 tabs 12/03/21 loperamide 2 mg tablet (Imodium 2 mg PO QID PRN loose stool #20 12/20/21 A-D) tabs gabapentin 300 mg capsule 300 mg PO QHS leg pain #90 caps 12/23/21 levothyroxine 50 mcg tablet 75 mcg PO DAILY 02/22/22 cyclobenzaprine 10 mg tablet 5 - 10 mg PO TID PRN muscle spasm 03/10/22 #30 tabs trazodone 300 mg tablet 150 - 300 mg PO QHS sleep 04/10/22 hydralazine 25 mg tablet 25 mg PO TID #300 tabs 04/29/22 isosorbide dinitrate 20 mg tablet 20 mg PO TID #300 tabs 04/29/22 carvedilol 12.5 mg tablet 12.5 mg PO BID #180 tabs 04/30/22 Current Visit Medications: Current Medications Generic Name Dose Route Start Last Admin Trade Name Freq PRN Reason Stop Dose Admin Acetaminophen 1,000 mg 05/09/22 06:00 Acetaminophen 500 Mg Tab PO Q4H PRN PRN Miscellaneous Medication 0 ml 05/09/22 06:00 Prednisolone 1%, Moxifloxacin 0.5%, Nepafenac 0.1% 5ml Btl OD DIRECTED [facility] Miscellaneous Medication 0 ml 05/09/22 06:00 Tropicam./Phenyleph. (1/2.5%) 5 Ml Btl OD DIRECTED [facility] Tetracaine HCl 0 ml 05/09/22 06:00 Tetracaine 0.5% 4 Ml Btl OD DIRECTED [facility] PFSH Active Problems Active Problems: Problem Status Onset Code Posterior subcapsular age-related cataract, right eye H25.041 Nuclear sclerotic cataract of right eye H25.11 Nuclear sclerotic cataract of left eye H25.12 Posterior subcapsular age-related cataract of left eye H25.042 Cervical spondylosis 08/24/07 M47.812 Cirrhosis 11/15/13 K74.60 Osteopenia 11/18/12 M85.80 High blood cholesterol E78.00 Renal artery stenosis ~2018 I70.1 Hearing loss H91.90 Advance directive on file Z78.9 Anemia D64.9 Hypothyroidism E03.9 Gastro-esophageal reflux disease without esophagitis ~11/2018 K21.9 CKD (chronic kidney disease) stage 4, GFR 15-29 ml/min N18.4 Cardiomyopathy ~2019 I42.9 Chronic diarrhea ~2019 K52.9 Secondary hyperparathyroidism N25.81 Middle insomnia G47.00 Hypertensive kidney disease with CKD stage IV ~01/2021 I12.9, N18.4 Syncope R55 B12 deficiency E53.8 Medical History Medical History Abdominal aortic aneurysm (AAA) without rupture (01/04/16) repaired 09/202102/26/13-CT scan infra-renal, 3.1 cm, 03/16/[place] [facility] [place] [facility] [place]. 3.7cm 01/04/16- ultrasound 3.2 cm 01/04/16-Abd US 3.2 cm diameter 07/2015 - 3.5 cm rechecked 01/01/18 note 04/18/20 substantial increase in last 6 mos, CTA ordered Acute and chronic respiratory failure with hypoxia Acute kidney injury superimposed on chronic kidney disease Acute on chronic systolic (congestive) heart failure Acute respiratory failure with hypoxia AMS (altered mental status) BCC (basal cell carcinoma), face (07/05/20) 05/14/20 right nasal ala- shave biopsy. Basal Cell Ca, moved to hx and BCC to problem list. 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 Basal Cell Ca, moved to hx and BCC to problem list. Pre-transplant evaluation for CKD (chronic kidney disease) (~05/2019) Not a candidate per [facility] [place] Shingles Shoulder pain (08/24/07) Transient neurologic deficit Surgical History Surgical History Bilateral salpingectomy with oophorectomy Colonoscopy - MAC (09/27/12) DR CANCHOLA, REPEAT 10 YRS. EGD W/ BS (08/12/12) DR CANCHOLA History of AAA (abdominal aortic aneurysm) repair (~10/01/21) 10/01/21 [facility] [place] Vascular History of intestinal surgery Hysterectomy, Laproscopic (~03/1984) S/P exploratory laparotomy (~03/2020) 04/24/20 [facility] [place] with lysis of adhesions Status post Mohs surgery (07/05/20) right nasal ala for BCC Status post surgery (09/07/18) right external iliac to right renal artery bypass with reversed rifht greater saphenous vein, [facility] [place] Tobacco Smoking/Tobacco Use Status: Former Tobacco Use Alcohol Alcohol Intake: current Alcohol intake frequency: holidays/special occasions only Alcohol type: wine Substance Use Substance use: Never Substance use type: does not use Vital Signs and Lab Results Vital Signs Most Recent Vital Signs in EMR: Most Recent Vital Signs Temp Pulse Resp BP Pulse Ox 36.4 C L 66 16 154/78 H 96 05/09/22 12:35 05/09/22 12:35 05/09/22 12:35 05/09/22 12:35 05/09/22 12:35 Lab Results Blood Type / Crossmatch: No Data to Display Complete Blood Count: No Data to Display Complete Metabolic Panel: No Data to Display Liver Function Panel: No Data to Display Coagulation Panel: No Data to Display Cardiac Panel: No Data to Display Arterial Blood Gas: No Data to Display Venous Blood Gas: No Data to Display Pancreas Panel: No Data to Display Thyroid Panel: No Data to Display Infectious Disease: No Data to Display Blood Cultures: No Data to Display Toxicology Panel: No Data to Display Imaging and Studies Imaging and Studies Study information below may be from another EMR and interpreted by another provider. Please see original notes in EMR for more complete details. EKG Summary: Conclusion Sinus rhythm...normal P axis, V-rate 60- 99 Probable left atrial enlargement...P >50mS, <-0.10mV V1 sinus rhythm, normal axis, normal intevals, st depressions V3-V6 02/15 Echocardiogram Summary: 02/15 Conclusion Normal left ventricular wall thickness and chamber size. Estimated ejection fraction 55 to 60%. Wall motion is normal Normal right ventricular size and systolic function Both atria are normal in size No intracardiac shunting is demonstrated during infusion of agitated saline Mildly sclerotic trileaflet aortic valve Mildly thickened mitral leaflets with trace to mild regurgitation Normal tricuspid valve with trace to mild regurgitation. Estimated right ventricular systolic pressure is 27 mmHg Anesthesia Assessment and Plan Anesthesia History Personal History: No History of Anesthesia Complications Family History: No Family History of Anesthesia Complications Exercise Tolerance Exercise Tolerance: Metabolic Equivalents>4 Pertinent Negatives Pertinent Negatives: No Symptoms of GERD Cardiac & Pulmonary Exam Cardiac Exam: Normal S1/S2 Heart Sounds Pulmonary Exam: Clear Bilateral Breath Sounds Implantable Cardiac Device Does patient have a Pacemaker or an ICD?: No Airway Exam Known Difficult Airway: No Mallampati Class: 3 Mouth Opening: Normal (> 3cm) Thyromental Distance: Greater than 3 cm Neck Range of Motion: Full ROM Neck Circumference: Normal Teeth Condition: Normal Dentition ASA Classification ASA Score: ASA 3 Emergency Case?: No NPO Status NPO Status: NPO Clears >2 hours, Solids >8 hours Anesthesia Plan Resuscitation Status: Full Code Anesthesia Technique: MAC Anesthesia Airway Planned: Natural Airway Monitors Used: Standard Monitors Preoperative Comments:: Declines mko per last cat
[2022-05-09] MEDS: Tropicam./Phenyleph. (1/2.5%) 5 ML BTL OD ×3 (12:43→12:53)
[2022-05-09 12:50] VITALS: BMI 19.1
[2022-05-09] MEDS: Tetracaine 0.5% 4 ML BTL OD (13:22)
[2022-05-09] MEDS: Lidocaine 2% Jelly 6 ML SYR (13:23)
[2022-05-09] MEDS: Duovisc Viscoelastic System EACH 1 EACH (13:30)
[2022-05-09] MEDS: Balanced Salt Soln.-PLUS 500 ML BAG (13:30)
[2022-05-09] MEDS: Povidone-Iodine Ophth 30 ML BTL (13:32)
[2022-05-09 13:55] VITALS: BP 154/73; PULSE 60; RESP 16; TEMP 36.4; O2SAT 98
--- NOTE | 2022-05-09 13:55 | PDOC.DSDIS_ITS ---
Date of service: 05/09/22 Time of Service: 13:55 Discharge Plan Disposition Patient Disposition: Home Discharge Details Attending Provider: Fausto Luciano Primary Care Provider: Lexus Lawson Home Meds and New Rx's Prescriptions: No Action clonidine HCl 0.1 mg tablet 0.1 mg PO PRN Qty: 10 2RF Hold Instructions: Home Medication placed on hold at Doctor's office Rx Instructions: only take if BP > 180 lidocaine 5 % ointment 1 applic topical QID PRN (Reason: pain) Qty: 30 0RF loperamide [Imodium A-D] 2 mg tablet 2 mg PO QID PRN (Reason: loose stool) Qty: 20 0RF Rx Instructions: acute diarrhea aspirin [Aspir-81] 81 MG tablet,delayed release (DR/EC) 81 mg PO DAILY atorvastatin 20 mg tablet 20 mg PO QHS Qty: 90 3RF furosemide 20 mg tablet 20 mg PO BID Qty: 180 3RF Rx Instructions: Take in AM and at 4PM cimetidine 400 mg tablet 400 mg PO BID Qty: 180 3RF amlodipine 5 mg tablet 5 mg PO DAILY Qty: 90 3RF Rx Instructions: 1 daily gabapentin 300 mg capsule 300 mg PO QHS Qty: 90 3RF cyclobenzaprine 10 mg tablet 5 - 10 mg PO TID PRN (Reason: muscle spasm) Qty: 30 0RF Rx Instructions: Muscle spasm of spine & ribs isosorbide dinitrate 20 mg tablet 20 mg PO TID Qty: 300 6RF Rx Instructions: per [facility] [place] d/c 01/21/19 hydralazine 25 mg tablet 25 mg PO TID Qty: 300 7RF Rx Instructions: per [facility] [place] d/c 01/21/19 carvedilol 12.5 mg tablet 12.5 mg PO BID Qty: 180 3RF Rx Instructions: per [facility] [place] d/c 01/21/19 acetaminophen 500 mg Tablet 500 mg PO PRN PRN levothyroxine 50 mcg tablet 75 mcg PO DAILY trazodone 300 mg tablet 150 - 300 mg PO QHS Discharge Instructions Stand Alone Forms: Post-op Topical Cataract, Press Ganey (DSU) Discharge Orders Discharge Orders: Discharge Order (Routine); Ordered 05/09/22 Ordered By: Fausto Luciano DS: Diagnosis Discharge Diagnosis (1) Posterior subcapsular age-related cataract, right eye: Status: Resolved (2) Nuclear sclerotic cataract of right eye: Status: Resolved
--- NOTE | 2022-05-09 13:56 | W.PM.OP ---
Date of service: 05/09/22 Time of Service: 13:56 Operative Note Operative Note DATE OF PROCEDURE: 05/09/22 PRE-OP DIAGNOSIS: Nuclear/posterior subcapsular cataract, right eye POST-OP DIAGNOSIS: same PROCEDURE: Cataract extraction using phacoemulsification with intraocular lens implant, right eye SURGEON: Fausto Luciano ANESTHESIA TYPE: Local By Surgeon and MAC Refer to Anesthesia Record ESTIMATED BLOOD LOSS: 0 PATHOLOGY: none sent COMPLICATIONS: None Patient was transported to: same day Patient's condition: stable Implants: [employer]her/ROSEANNE Tecnis [id number] Indications: Progressive visual loss due to cataract, right eye Procedure Description: CATARACT SURGERY OPERATIVE REPORT PREOPERATIVE DIAGNOSIS: 1. Nuclear/posterior subcapsular cataract, right eye POSTOPERATIVE DIAGNOSIS: Same OPERATION: 1. Cataract extraction using phacoemulsification with posterior chamber intraocular lens implant, right eye. IOL: IOL Mental Health Clinician/Model: [employer]her / ROSEANNE Tecnis [id number] IOL Power: + 24.5 diopters IOL Serial Number: [id number] Optic Diameter: 6.0mm Haptic/Overall Diameter: 13.0mm PHACO INFO: Power KakaMobiurion Vision System with OZil and Active Fluidics Cumulative Dispersed Energy (CDE): 12.79 seconds SURGEON: Fausto Luciano MD, SANDY ANESTHESIA: Monitored Anesthesia Care (MAC), with local sub-tenon's anesthetic infiltration COMPLICATIONS: None SPECIMENS: None INDICATIONS FOR PROCEDURE: The patient is a 71-year-old lady with history of diminished visual acuity in both eyes secondary to the development of bilateral cataracts. She has already undergone cataract surgery in the left eye and is doing well postoperatively. She now presents for cataract surgery in the right eye. PROCEDURE: The correct surgical eye was identified and marked as the right eye and the pupil was dilated in the preoperative area using mydriatics and cycloplegics. The dilated pupil size was 6.0 mm. The patient elected to proceed without oral sedation. The patient was brought to the operating room where cardiopulmonary monitoring was instituted and surgical time-out was performed, confirming the correct operative eye and IOL power. Topical anesthesia was administered and ophthalmic povidone-iodine 5% was instilled into the conjunctival fornices. Lidocaine gel was applied to the cornea and the yunior-ocular area was prepped with Betadine 10% solution and draped in the usual sterile fashion for intraocular surgery, including an aperture drape. A Tegaderm transparent film dressing was cut in half and used to cover the lashes and lid margins. Care was taken to sequester the lashes and lid margins under the Tegaderm dressing. A lid speculum was placed between the lids of the operative eye and the Power LuxOR Revalia operating microscope was maneuvered into position. [place] scissors were then used to make a conjunctival buttonhole approximately 6mm posterior to the limbus in the inferonasal quadrant. Blunt dissection was carried out to expose bare sclera, and a blunt-tipped sub-tenon?s anesthesia cannula was introduced and passed posteriorly along the globe where non-preserved plain lidocaine was injected into posterior sub-Tenon?s space. A sideport knife was used to make a paracentesis port inferotemporally. Intraocular phenylephrine/lidocaine was injected into the anterior chamber. The anterior chamber was filled with viscoelastic. A keratome knife was used to construct a 2-plane near-clear corneal tunnel extending 2.0mm into clear cornea superiortemporally. A flap was raised on the anterior capsule and capsulorhexis forceps were used to complete a continuous curvilinear capsulorhexis of 5.0 mm. Constant eye movement was noted. A second paracentesis was placed at the 1 o'clock position, and forceps were used to aid in fixating the eye during capsulorrhexis creation. Balanced salt solution was then used to perform cortical cleaving hydrodissection and nuclear hydrodelineation until the lens could be freely rotated within the capsular bag. The lens nucleus was then disassembled and removed within the capsular bag and iris plane using phacoemulsification. Residual cortical material was removed using the I/A handpiece. The posterior capsule was carefully polished to remove as much residual lens epithelial cells as safely possible. The capsular bag was then inflated and the anterior chamber deepened with viscoelastic. The lens implant described above was inserted into the capsular bag using the ROSEANNE [place] Injector. A Kuglen hook was used to dial the IOL into position. Residual viscoelastic was then removed first from posterior to the IOL, then from the anterior chamber using the I/A handpiece. The lens implant was noted to center nicely within the capsular bag. The incisions were stromally hydrated, and the anterior chamber was reformed using BSS. Then 0.5cc of moxifloxacin 1.0mg/ml were injected into the capsular bag and anterior chamber. The incisions were checked with a Weck spear and found to be secure. Several drops of ophthalmic povidone-iodine 5% were then applied to the eye followed by two drops of Imprimis combination prednisolone/moxifloxacin/nepafenac solution. The drapes were removed and a clear plastic protective eye shield was placed over the eye. The patient was then returned to Same Day Surgery in stable condition.
--- NOTE | 2022-05-09 14:01 | W.ANESPOSTOP ---
Postoperative Evaluation Date, Time and Location Date Performed: 05/09/22 Time Performed: 14:01 Patient Location: Day Surgery Unit Vital Signs Most Recent Imported Vital Signs: Most Recent Vital Signs Temp Pulse Resp BP Pulse Ox 36.4 C L 66 16 154/78 H 96 05/09/22 12:35 05/09/22 12:35 05/09/22 12:35 05/09/22 12:35 05/09/22 12:35 Pain Score Most Recent Pain Score: Most Recent Pain Score Pain Level 0 05/09/22 12:35 Assessment Mental Status: Awake (Alert & Oriented to Patient Baseline) Airway and Respiratory Function: Patent airway with normal (patient baseline) respiratory exam Cardiovascular Function: Hemodynamically Stable Hydration Status: Adequately Hydrated Nausea & Vomiting: No Nausea or Vomiting Pain: Pt. Denies Any Pain Peripheral Nerve Block: Patient did not receive a nerve block
== END 2022-05-09 14:20 | disposition home or self-care (01) ==
PROVIDERS: PCP Nurse Practitioner Adult Health; Visit Provider Ophthalmology
PROC: (CPT 66984; principal; 2022-05-09 13:30)
DX: H25.041 Posterior subcapsular polar age-related cataract, right eye (principal)
CPT/HCPCS: 66984; V2632

== ENCOUNTER 2022-05-15 03:04 | Outpatient (CLI) | payer MEDICARE, BC, SELFPAY ==
--- NOTE | 2022-05-15 06:30 | DI.MAMMO_ITS ---
Exam(s) MAMMO SCREENING EXAM: MAMMO SCREENING CLINICAL HISTORY: screening,z12.39. TECHNIQUE: Bilateral full field digital CC and MLO mammographic images were obtained with 3D tomosyn thesis and utilizing computer aided detection (CAD). COMPARISON: Prior mammograms were reviewed. Prior ultrasound October 2020 also reviewed. FINDINGS: There has been no significant change in the appearance and distribution of the fibroglandular tissue which moderately dense.. There are no new spiculated masses nor malignant appearing microcalcification groups. Previously described microcalcifications in the left breast remains stable. There is no significant architectural distortion nor skin thickening-retraction. IMPRESSION: No radiographic evidence of malignancy. Stable benign-appearing findings. BI-RADS Category 2 - Benign Findings Breast Density - Category C - Heterogeneously dense Breast density Category C or D implies that the patient has dense breast tissue. Dense breast tissue can make it harder to find cancer on a mammogram. Dense breast tissue is also associated with an incr eased risk of breast cancer. This information about the result of the mammogram report was provided to the patient to raise their awareness. Use this report when you speak with the patient about their risks for breast cancer, which includes their family history. At that time, you may recommend additional screening tests (Ultrasoun d or MRI) as these tests may add significant information. A negative radiographic report should not delay biopsy if a dominant or clinically suspicious mass is present. Up to ten percent of cancers are not identified on mammography. A negative report may reinforce clinical impression. Adenosis and dense breasts may obscure an underlying neoplasm. False positive reports average 6 to 10%. Patient will receive a letter notifying them of these results.
== END 2022-05-15 03:24 ==
LOC: DI 03:04
PROVIDERS: PCP Nurse Practitioner Adult Health; Visit Provider Internal Medicine
DX: Z12.31 Encounter for screening mammogram for malignant neoplasm of breast (principal)
CPT/HCPCS: 77063; 77067

== ENCOUNTER 2022-06-30 08:49 | Emergency (ER) | payer MEDICARE, BC, SELFPAY ==
[2022-06-30 08:56] VITALS: BP 170/67; PULSE 62; RESP 20; TEMP 36.5; O2SAT 97
--- NOTE | 2022-06-30 09:12 | W.ED.GENAD ---
Discharge Plan Disposition Patient Disposition: Home Discharge Details Clinical Impression: Syncope, Closed fracture of right clavicle, History of fall, Laceration of face Primary Care Provider: Lexus Lawson ED Provider: Eliezer Valerio [place] Meds and New Rx's Prescriptions: Continued clonidine HCl 0.1 mg tablet 0.1 mg PO PRN Qty: 10 2RF Hold Instructions: Home Medication placed on hold at Doctor's office Rx Instructions: only take if BP > 180 lidocaine 5 % ointment 1 applic topical QID PRN (Reason: pain) Qty: 30 0RF loperamide [Imodium A-D] 2 mg tablet 2 mg PO QID PRN (Reason: loose stool) Qty: 20 0RF Rx Instructions: acute diarrhea aspirin [Aspir-81] 81 MG tablet,delayed release (DR/EC) 81 mg PO DAILY atorvastatin 20 mg tablet 20 mg PO QHS Qty: 90 3RF furosemide 20 mg tablet 20 mg PO BID Qty: 180 3RF Rx Instructions: Take in AM and at 4PM cimetidine 400 mg tablet 400 mg PO BID Qty: 180 3RF amlodipine 5 mg tablet 5 mg PO DAILY Qty: 90 3RF Rx Instructions: 1 daily gabapentin 300 mg capsule 300 mg PO QHS Qty: 90 3RF cyclobenzaprine 10 mg tablet 5 - 10 mg PO TID PRN (Reason: muscle spasm) Qty: 30 0RF Rx Instructions: Muscle spasm of spine & ribs isosorbide dinitrate 20 mg tablet 20 mg PO TID Qty: 300 6RF Rx Instructions: [place] [facility] [place] hydralazine 25 mg tablet 25 mg PO TID Qty: 300 7RF Rx Instructions: [place] [facility] [place] 01/21/19 carvedilol 12.5 mg tablet 12.5 mg PO BID Qty: 180 3RF Rx Instructions: [place] [facility] [place] 01/21/19 acetaminophen 500 mg Tablet 500 mg PO PRN PRN levothyroxine 50 mcg tablet 75 mcg PO DAILY trazodone 300 mg tablet 150 - 300 mg PO QHS Discharge Instructions Instructions: Clavicle Fracture (ED) Additional Instructions: Please read all of the information that accompanies these instructions. You were seen in the emergency department for your history of falling. You are found to have a fracture of your right clavicle. Please call the orthopedic team for an appointment later this week. Please return to the emergency department if if you develop any numbness or tingling in the right hand. Please also call the cardiology team for follow-up as you well benefit from a repeat ultrasound. Please do not bear weight any weight on your right upper extremity until you are cleared by orthopedics. Medical Decision Making This is a 71-year-old normothermic and not tachycardic female with CKD and hypertension with significant cardiac disease with prior EF 20 to 25% now with reportedly most recent EF of 59% and now with head strike concerning for intracranial hemorrhage. Based on age will obtain CT head. Based on chest wall tenderness will obtain CT chest to increase sensitivity for rib fractures. She has bilateral humerus pain for which she will obtain x-rays. She is not short of breath nor tachycardic nor hypoxic so I am not concerned for pulmonary embolism so we will defer D-dimer testing at this point time. No dysuria nor frequency to suggest UTI. No fevers to suggest sepsis. No preceding cough to suggest pneumonia. Patient is not pale appearing and denies black or bloody stools so I am not concerned for GI bleed. She has no significant lower extremity edema to suggest acute CHF exacerbation. She does not have an obvious systolic ejection murmur and did not have any significant aortic stenosis as of 3 years ago however it is certainly possible based on her age that she has developed aortic stenosis from which she is symptomatic. She also has a history of AAA status post endovascular repair and as result we will obtain a dry CT scan to assess for endoleak. Per nursing note patient had her tetanus updated last year. Her ECG does show sinus bradycardia and she is on carvedilol. It is possible that she could be on too high dose of this medication causing her to become syncopal. 11:45 AM I spoke with Dr. Rios from cardiology requesting outpatient follow-up. I told her that I was planning on ordering an echocardiogram as I was concerned that she could have valvular pathology causing her to be syncopal. Dr. Rios advised PCP follow-up which health community liaison Tata will help to arrange. Patient will also have outpatient orthopedic follow-up arranged. I made patient nonweightbearing on her right upper extremity until cleared by orthopedics. Her discharge vitals lacked hypotension and lactic bradycardia. Her sats are within normal limits on room air. She was mildly hypokalemic but not on a potassium sparing diuretic so I did not feel that she required repletion as she has not been vomiting. We will proceed with an empiric trial of expectant outpatient management HPI General Date/Time Provider Initiated Documentation: 06/30/22 09:11. HPI Narrative: This is a [id number] 71-year-old female with a history of CKD in the emergency department following a syncopal episode. Patient reported that she woke up in her usual state of health. She was trying to get out of the shower as she felt as if she was going to blackout. She fainted. She hit her head. She had similar symptoms 6 to 8 months ago. She was evaluated previously [place] [facility] and in the emergency department at [facility]. She had a Holter monitor for a month which was reportedly uneventful. She has not yet had breakfast. She had no preceding chest pain abdominal pain nausea no vomiting. She denies dysuria and frequency. She has pain in her bilateral upper extremities. She did not bite her tongue. She denies any history of seizures. Her supportive at bedside denies any history of convulsions this morning. She has not recently had an echocardiogram. Related Data Home Medications Medication Instructions Recorded Confirmed aspirin 81 mg tablet,delayed 81 mg PO DAILY 04/19/13 06/30/22 release (Aspir-) acetaminophen 500 mg tablet 500 mg PO PRN PRN 02/16/19 06/30/22 clonidine HCl 0.1 mg tablet 0.1 mg PO PRN hypertensive crisis 03/06/21 06/30/22 #10 tabs atorvastatin 20 mg tablet 20 mg PO QHS #90 tab-caps 07/23/21 06/30/22 furosemide 20 mg tablet 20 mg PO BID #180 tabs 07/23/21 06/30/22 lidocaine 5 % topical ointment 1 applic topical QID PRN pain #30 11/12/21 06/30/22 grams amlodipine 5 mg tablet 5 mg PO DAILY #90 tabs 12/03/21 06/30/22 cimetidine 400 mg tablet 400 mg PO BID #180 tabs 12/03/21 06/30/22 loperamide 2 mg tablet (Imodium 2 mg PO QID PRN loose stool #20 12/20/21 06/30/22 A-D) tabs gabapentin 300 mg capsule 300 mg PO QHS leg pain #90 caps 12/23/21 06/30/22 levothyroxine 50 mcg tablet 75 mcg PO DAILY 02/22/22 06/30/22 cyclobenzaprine 10 mg tablet 5 - 10 mg PO TID PRN muscle spasm 03/10/22 06/30/22 #30 tabs trazodone 300 mg tablet 150 - 300 mg PO QHS sleep 04/10/22 06/30/22 hydralazine 25 mg tablet 25 mg PO TID #300 tabs 04/29/22 06/30/22 isosorbide dinitrate 20 mg tablet 20 mg PO TID #300 tabs 04/29/22 06/30/22 carvedilol 12.5 mg tablet 12.5 mg PO BID #180 tabs 04/30/22 06/30/22 Previous Rx's Medication Instructions Recorded clonidine HCl 0.1 mg tablet 0.1 mg PO PRN hypertensive crisis 03/06/21 #10 tabs atorvastatin 20 mg tablet 20 mg PO QHS #90 tab-caps 07/23/21 furosemide 20 mg tablet 20 mg PO BID #180 tabs 07/23/21 lidocaine 5 % topical ointment 1 applic topical QID PRN pain #30 11/12/21 grams amlodipine 5 mg tablet 5 mg PO DAILY #90 tabs 12/03/21 cimetidine 400 mg tablet 400 mg PO BID #180 tabs 12/03/21 loperamide 2 mg tablet (Imodium 2 mg PO QID PRN loose stool #20 12/20/21 A-D) tabs gabapentin 300 mg capsule 300 mg PO QHS leg pain #90 caps 12/23/21 cyclobenzaprine 10 mg tablet 5 - 10 mg PO TID PRN muscle spasm 03/10/22 #30 tabs hydralazine 25 mg tablet 25 mg PO TID #300 tabs 04/29/22 isosorbide dinitrate 20 mg tablet 20 mg PO TID #300 tabs 04/29/22 carvedilol 12.5 mg tablet 12.5 mg PO BID #180 tabs 04/30/22 Allergies Allergy/AdvReac Type Severity Reaction Status Date / Time Iodinated Contrast Media Allergy Severe Anaphylaxis Verified 06/30/22 09:00 shellfish derived Allergy Unverified 06/30/22 09:00 General Stated Complaint: Trauma BILLY: 3 PFSH All Active Problems (Updated 06/30/22 @ 11:11 by Eliezer Valerio MD) Closed fracture of right clavicle (Acute) History of fall (Acute) Laceration of face (Acute) Supraceliac aneurysm of the abdominal aorta, without rupture (Acute) Cervical spondylosis (Acute 08/24/07) 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 Hep B in 2012 Osteopenia (Acute 11/18/12) DEXA 10/2012; T -1.2 at hip DEXA 05/02/14; T -2.0 hip High blood cholesterol (Chronic) Renal artery stenosis (Chronic ~2018) (R) > (L) (R) YING bypass graft 09/12 Hearing loss (Chronic) ENT 12/21/18 Advance directive on file (Acute) Anemia (Chronic) Hypothyroidism (Chronic) Gastro-esophageal reflux disease without esophagitis (Chronic ~11/2018) [place] [facility] [place]18 CKD (chronic kidney disease) stage 4, GFR 15-29 ml/min (Chronic) G4/A3; [facility] Nephro Cardiomyopathy (Acute ~2019) LVEF 59% on 06/16 Chronic diarrhea (Chronic ~2019) Secondary hyperparathyroidism (Chronic) Middle insomnia (Chronic) Hypertensive kidney disease with CKD stage IV (Chronic ~01/2021) 06/25/21 [facility] [place] note Syncope (Acute) B12 deficiency (Acute) Medical History Abdominal aortic aneurysm (AAA) without rupture (01/04/16) repaired 09/202102/26/13-CT scan infra-renal, 3.1 cm, 03/16/2018 [facility] [place]. 3.7cm 01/04/16- ultrasound 3.2 cm 01/04/16-Abd US 3.2 cm diameter 07/2015 - 3.5 cm rechecked 01/01/18 note 04/18/20 substantial increase in last 6 mos, CTA ordered Acute and chronic respiratory failure with hypoxia Acute kidney injury superimposed on chronic kidney disease Acute on chronic systolic (congestive) heart failure Acute respiratory failure with hypoxia AMS (altered mental status) BCC (basal cell carcinoma), face (07/05/20) 05/14/20 right nasal ala- shave biopsy. Basal Cell Ca, moved to hx and BCC to problem list. 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 Basal Cell Ca, moved to hx and BCC to problem list. Pre-transplant evaluation for CKD (chronic kidney disease) (~05/2019) Not a candidate per [facility] Shingles Shoulder pain (08/24/07) Transient neurologic deficit Surgical History Bilateral salpingectomy with oophorectomy [place] [facility] [place] CANCHOLA, REPEAT 10 YRS. EGD W/ BS (08/12/12) DR CANCHOLA History of AAA (abdominal aortic aneurysm) repair (~10/01/21) 10/01/21 [facility] [place] History of intestinal surgery Hysterectomy, Laproscopic (~03/1984) S/P exploratory laparotomy (~03/2020) 04/24/20 [facility] with lysis of adhesions Status post Mohs surgery (07/05/20) right nasal ala for BCC Status post surgery (09/07/18) right external iliac to right renal artery bypass with reversed rifht greater saphenous vein, [facility] Family History Grandmother Essential hypertension Mother , age 68 of ovarian cancer Ovarian cancer Father , age 60 of emphysema Emphysema lung Smoker Sister Essential hypertension Brother , age 34 of suicide Suicide Son No problems noted. Daughter No problems noted. Other Abdominal aortic aneurysm (AAA) without rupture Social History Smoking/Tobacco Use Status: Former Tobacco Use Quit Date: 04/27/08 Tobacco: How many years used: 45 Smoking risk assessment performed?: Yes Alcohol Intake: current Alcohol Intake frequency: holidays/special occasions only Alcohol type: wine Drug use: Never Substance use type: does not use Caregiver/Support person: Yes Foster care: No Household members: spouse Housing: house Number of Children: 2 number of grandchildren: 3 Communication Needs: Corrective Lenses Education Level: college Do you need help understanding health information?: Rarely 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, 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 Pets and animals: Yes Current gender identity: female What is your relationship status?: How often do you talk on the phone with friends or family?: three or more times per week How often do you get together with friends or relatives?: once per week Panel score (0-1 are the most socially isolated patients): 2 What type of physical activity do you participate in: none Special yanira needs: No Agree to transfusion: Yes Seatbelt use: always Drive intox or ride w/intox auto crane driver: No Working smoke detector in home: Yes Fire extinguisher in home: Yes Carbon monox detector in home: Yes Do you feel safe at home: Yes Do you feel safe in your relationship?: Yes Exam Narrative Exam Narrative: General: Well-appearing in no acute distress speaking in complete sentences. Head: Normocephalic, right side of the patient's forehead there is a superficial stellate hemostatic approximately 1 cm laceration. Ear, nose, mouth, throat: Grossly normal inspection. Normal voice, handling secretions normally. Neck: Trachea midline. Cardiovascular: Well-perfused distal extremities. No JVD. Regular rate and rhythm. No obvious systolic ejection murmur. Chest wall: Bilateral upper chest wall tenderness. No flail segments. Respiratory: Nonlabored respiration. Gastrointestinal: Nondistended abdomen. Soft nontender Musculoskeletal: No lower extremity pitting edema. Bilateral proximal humerus tenderness. No ecchymoses. No lacerations. Skin: Normal for age and race, grossly normal temperature and turgor. No acute rash. Neurologic: Alert and appropriate, no apparent acute deficits. Psychiatric: Mood and manner are appropriate. Grooming and personal hygiene are appropriate. Course Vital Signs Vital signs: Vital Signs Temperature 36.5 C 06/30/22 08:56 Pulse 62 06/30/22 08:56 Respiratory Rate 20 06/30/22 08:56 Blood Pressure 170/67 H 06/30/22 08:56 Pulse Oximetry 97 06/30/22 08:56 Temperature 36.5 C 06/30/22 08:56 Temperature Source Oral 06/30/22 08:56 Pulse 62 06/30/22 08:56 Respiratory Rate 20 06/30/22 08:56 Respiratory Effort Normal 06/30/22 09:01 Blood Pressure 170/67 H 06/30/22 08:56 Blood Pressure Position Sitting 06/30/22 08:56 Pulse Oximetry 97 06/30/22 08:56 Oxygen Delivery Method Room Air 06/30/22 08:56 Oxygen Flow Rate 0 06/30/22 08:56 Pain Level 10 06/30/22 08:56 POCUS Exam (ED) Limited Cardiac Exam DATE OF EXAM: 06/30/22 TIME OF EXAM: 11:04 REASON FOR EXAM: Syncope VISUALIZED STRUCTURES: Four Chambers, Left ventricle, LVOT and Aortic valve VIEW OBTAINED: Apical 4-Chamber, Parasternal long-axis and Subxiphoid PERTINENT FINDINGS/IMPRESSION: Other (Good squeeze, aortic outflow track less than 4 cm, no significant pericardial effusion, RV less than LV.) Exam complete
--- NOTE | 2022-06-30 09:15 | DI.CT_ITS ---
Exam(s) CT HEAD WO EXAM: CT HEAD WO CLINICAL HISTORY: History of head strike on aspirin. TECHNIQUE: Imaging Protocol: Axial computed tomography images with coronal and sagittal reformatted images were created and reviewed COMPARISON: CT CT HEAD WO from 02/22/2022 FINDINGS: Ventricles and Extra axial spaces: Normal in size and morphology for the patient's age. Hemorrhage: None. Cerebral parenchyma: tiny lacunar infarct again noted adjacent to the frontal horn of the right late ral ventricle. Minimal atrophy. Midline shift: None. Brainstem/Cerebellum: Normal. Calvarium: Normal. Visualized Paranasal sinuses/Mastoids: Clear. Soft Tissues: Unremarkable. IMPRESSION: No acute intracranial process. RADIATION DOSE DELIVERED: 595.2mGy.cm Total DLP DATA REPOSITORY: All CT scans at this facility are submitted to the National Radiology Data Registry (NRDR) Dose Index Registry (DIR) with the [employer] (ACR). RADIATION OPTIMIZATION: All CT scans at this facility use at least one of these dose optimization te chniques: automated exposure control; mA and/or kV adjustment per patient size (includes targeted exa ms where dose is matched to clinical indication); or iterative reconstruction.
--- NOTE | 2022-06-30 09:27 | DI.CT_ITS ---
Exam(s) CT CHEST/ABD/PEL WO EXAM: CT CHEST/ABD/PEL WO CLINICAL HISTORY: Right-sided upper chest pain status post fall conc. TECHNIQUE: Imaging Protocol: Axial computed tomography images with coronal and sagittal reformatted images were created and reviewed CONTRAST MATERIAL: Noncontrast Oral: / no COMPARISON: CT CT CHEST/ABD/PEL WO from 04/24/2020 CR,XR XR CHEST 1V IN [facility] DEPT from 02/22/2022 FINDINGS: CHEST: Heart is mildly enlarged. Distal thoracic aortic stent is now in place. Emphysematous changes noted . No pneumothorax. No infiltrate or effusion. Distal right clavicle fracture, mildly displaced. Old right anterior rib fractures. No spine fractu re seen. ABDOMEN: Aortic stent in place. Bilateral iliac artery stents. Superior mesenteric artery stent. Cholelithiasis. Liver, spleen, pancreas, adrenals and right kidney unremarkable. Atrophic left kidn ey. Increased quantity of stool. No bowel wall thickening. No free air or free fluid. Status post hysterectomy. No evidence spine or pelvic fracture. Degenerative changes. IMPRESSION: Distal right clavicle fracture. No evidence of rib fracture. No acute abnormality in the abdomen or pelvis. Extensive aortic endo graft without evidence of leak. findings called to Dr. Valerio of the emergency department. RADIATION DOSE DELIVERED: 1,095.41mGy.cm Total DLP DATA REPOSITORY: All CT scans at this facility are submitted to the National Radiology Data Registry (NRDR) Dose Index Registry (DIR) with the [employer] (ACR). RADIATION OPTIMIZATION: All CT scans at this facility use at least one of these dose optimization te chniques: automated exposure control; mA and/or kV adjustment per patient size (includes targeted exa ms where dose is matched to clinical indication); or iterative reconstruction.
--- NOTE | 2022-06-30 09:30 | RT.EKG_ITS ---
APPROVED REPORT Exam: Resting ECG Reason for Exam: Syncope Patient Location: E HR:56 bpm ECG Measurements Heart Rate 56 AXIS OR 155 P 57 QRSd 90 QRS 57 QT 492 T 55 QTc 474 Conclusion Sinus bradycardia...rate< 60 Anteroseptal infarct, age indeterminate...Q >35mS, T neg, V1-V2 Narrow complex sinus bradycardia at a rate of 56. Normal axis. Intervals within normal limits. Nor mal axis. Appears similar to prior dated last year. No ST segment abnormalities. T wave flattening in aVL.
[2022-06-30 09:54] LABS: HCT 41.5 % (36.0-46.0); MCH 30.6 pg (27.0-33.0); MCHC 33.7 % (32.0-36.0); MCV 91 fL (80-95); MPV 10.3 fL (8.0-11.0); Platelet Count 193 10^3/uL (130-400); RBC 4.58 10^6/uL (3.93-5.22); RDW 12.9 % (11.7-14.6); RDW-SD 42.5 fL; WBC 11.69 10^3/uL (4.4-10.8)
[2022-06-30 10:13] LABS: Anion Gap 11.4 mmol/L (3-11); BUN 36 mg/dL (7-18); CO2 27.6 mmol/L (21.0-32.0); Chloride 102 mmol/L (98-107); Estimated GFR 15.92 (mL/min/1.73m2); Glucose 131 mg/dL (74-106); Potassium 3.3 mmol/L (3.5-5.1); Sodium 141 mmol/L (136-145); Troponin I < 50 ng/L (<or=60)
--- NOTE | 2022-06-30 10:50 | DI.RAD_ITS ---
Exam(s) XR HUMERUS RT EXAM: XR HUMERUS RT CLINICAL HISTORY: Right shoulder sprain status post fall. TECHNIQUE: 2D digital imaging was performed. COMPARISON: CR XR HUMERUS LT from 06/30/2022 FINDINGS: BONES: Minimally displaced fracture distal clavicle. No humeral fracture peer no bony destructive le aaron is seen. AC joint is not widened. No dislocation at the glenohumeral joint. Elbow is unremark able. Ribs unremarkable. SOFT TISSUE: Normal. IMPRESSION: distal clavicle fracture. DATA REPOSITORY: RADIATION DOSE DELIVERED:
--- NOTE | 2022-06-30 10:51 | DI.RAD_ITS ---
Exam(s) XR HUMERUS LT EXAM: XR HUMERUS LT CLINICAL HISTORY: Left shoulder sprain status post fall. TECHNIQUE: 2D digital imaging was performed. COMPARISON: DX DEXA BONE DENSITY WITH DAYANNA from 05/01/2014 FINDINGS: BONES: No acute fracture is present. No bony destructive lesion is seen. Degenerative changes noted o f the AC joint SOFT TISSUE: IV at elbow. IMPRESSION: Unremarkable radiographs of the left humerus. DATA REPOSITORY: RADIATION DOSE DELIVERED:
[2022-06-30] MEDS: Acetaminophen 500 MG TAB 1000 MG PO (11:17)
[2022-06-30] MEDS: Normal Saline 500 ML IV (11:17)
--- NOTE | 2022-06-30 11:46 | NUR.NOTE ---
Nursing Note: Faxed request to [facility] for echocardiogram/syncope/within 1 week with PCP.
[2022-06-30 11:53] VITALS: BP 117/85; PULSE 64; RESP 18; O2SAT 96
--- NOTE | 2022-06-30 16:55 | NUR.NOTE ---
Nursing Note: Referral faxed to PCP for syncope, order for echo place for within 1 week. Appt. EVELYN after echo.
== END 2022-06-30 12:08 | disposition home or self-care (01) ==
PROVIDERS: Emergency Provider Emergency Medicine; PCP Nurse Practitioner Adult Health
DX: S42.001A Fracture of unspecified part of right clavicle, initial encounter for closed fracture (principal); W18.2XXA Fall in (into) shower or empty bathtub, initial encounter; R55 Syncope and collapse; R00.1 Bradycardia, unspecified; S01.81XA Laceration without foreign body of other part of head, initial encounter; S09.8XXA Other specified injuries of head, initial encounter; R07.89 Other chest pain; Z79.82 Long term (current) use of aspirin
CPT/HCPCS: 36415; 36416; 71250; 80048; 82962; 85027; 93005; 93308; 96360; 99284; 99285; 70450; 73060; 74176; 84484; 93010

== ENCOUNTER 2022-07-15 10:26 | Outpatient (CLI) | payer MEDICARE, BC, SELFPAY | END 2022-07-15 10:27 | disposition home or self-care (01) | PROVIDERS: PCP Nurse Practitioner Adult Health; Visit Provider Nurse Practitioner Adult Health | DX: R55 Syncope and collapse (principal) | CPT/HCPCS: 93270 ==

== ENCOUNTER 2022-07-15 15:23 | Outpatient (CLI) | payer MEDICARE, BC, SELFPAY ==
--- NOTE | 2022-07-15 13:00 | DI.RAD_ITS ---
Exam(s) XR CLAVICLE RT EXAM: XR CLAVICLE RT CLINICAL HISTORY: f/u fracture TECHNIQUE: 2D digital imaging was performed of the right clavicle. Two images were obtained. AP and axial views were obtained. COMPARISON: CR XR HUMERUS RT from 06/30/2022 FINDINGS: BONES: There has been no change in alignment of the distal right clavicular fracture. No new fractur e is seen. The bones are osteopenic. Note is also made of a fracture involving the posterior right 2nd rib. No bony destructive lesion is seen. JOINTS: No dislocation present. SOFT TISSUE: Normal IMPRESSION: Stable right distal clavicular fracture. Right posterior rib fracture. DATA REPOSITORY: RADIATION DOSE DELIVERED:
== END 2022-07-15 15:24 | disposition home or self-care (01) ==
LOC: DIORS 15:23
PROVIDERS: PCP Nurse Practitioner Adult Health; Referring Provider Nurse Practitioner Adult Health; Visit Provider Student in an Organized Health Care Education/Training Program
DX: S42.001A Fracture of unspecified part of right clavicle, initial encounter for closed fracture (principal); W18.2XXA Fall in (into) shower or empty bathtub, initial encounter
CPT/HCPCS: 93270; 99203; 99213; 73000

== ENCOUNTER 2022-08-05 14:50 | Outpatient (CLI) | payer MEDICARE, BC, SELFPAY ==
[2022-08-05 13:35] LABS: BUN 30 mg/dL (7-18); CREATININE 2.7 mg/dL (0.55-1.02); Calcium 9.5 mg/dL (8.5-10.1); Chloride 102 mmol/L (98-107); Estimated GFR 18.06 (mL/min/1.73m2); Glucose 97 mg/dL (74-106); Potassium 3.9 mmol/L (3.5-5.1); Sodium 140 mmol/L (136-145)
== END 2022-08-05 14:51 | disposition home or self-care (01) ==
LOC: LBO 14:51
PROVIDERS: PCP Nurse Practitioner Adult Health; Visit Provider Internal Medicine
DX: N18.9 Chronic kidney disease, unspecified (principal)
CPT/HCPCS: 36415; 80048

== ENCOUNTER 2022-08-18 08:58 | Outpatient (CLI) | payer MEDICARE, BC, SELFPAY ==
--- NOTE | 2022-08-18 09:11 | W.CARDEVENT ---
Date of service: 08/18/22 Time of Service: 09:12 Cardiac Event Recorder Referring Provider:: Lexus Lawson Indications:: Syncope Cardiac Event Note: This is a 30-day cardiac event monitor ordered for syncope Rhythm throughout was sinus. Average heart rate was 66. Minimum was 46, maximum 117 There were no significant atrial or ventricular dysrhythmias No patient symptoms were reported
== END 2022-08-18 08:59 | disposition home or self-care (01) ==
LOC: CARDOPNVT 08:58
PROVIDERS: PCP Nurse Practitioner Adult Health; Visit Provider Internal Medicine Cardiovascular Disease
DX: R55 Syncope and collapse (principal)
CPT/HCPCS: 93272

== ENCOUNTER 2022-08-20 10:57 | Outpatient (CLI) | payer MEDICARE, BC, SELFPAY ==
--- NOTE | 2022-08-20 10:30 | DI.RAD_ITS ---
Exam(s) XR CLAVICLE RT EXAM: XR CLAVICLE RT INDICATION: RIGHT CLAVICLE FX F/U. COMPARISON: CR XR CLAVICLE RT from 07/15/2022 TECHNIQUE: 2D digital imaging was performed. Two views. FINDINGS: There has been no change in the alignment of the distal clavicle fracture. No new abnormalities. DATA REPOSITORY: RADIATION DOSE DELIVERED:
== END 2022-08-20 10:58 | disposition home or self-care (01) ==
LOC: DIORS 10:57
PROVIDERS: PCP Nurse Practitioner Adult Health; Referring Provider Nurse Practitioner Adult Health; Visit Provider Student in an Organized Health Care Education/Training Program
DX: S42.034D Nondisplaced fracture of lateral end of right clavicle, subsequent encounter for fracture with routine healing (principal); W18.2XXD Fall in (into) shower or empty bathtub, subsequent encounter
CPT/HCPCS: 99213; 73000

== ENCOUNTER 2022-09-12 00:22 | Outpatient (CLI) | payer MEDICARE, BC, SELFPAY ==
--- NOTE | 2022-09-12 | DI.US_ITS ---
APPROVED REPORT EXAM: Comprehensive 2D, Doppler, and color-flow Echocardiogram Patient Location: Out-Patient Bioinformatics Specialist: Zofia Manjarrez RDCS (AE) Indications: Syncope Other Information Study Quality: Adequate Conclusion Normal left ventricular wall thickness and chamber size. Ejection fraction is 60%. Wall motion is n ormal Normal right ventricular size and systolic function Both atria are normal in size Mildly thickened mitral leaflets with trace to mild eccentric mitral regurgitation Estimated right ventricular systolic pressure is 31 mmHg Wall motion Left Ventricle The left ventricle is normal size. The left ventricular systolic function is normal. The left ventric ular ejection fraction is within the normal range. There is normal left ventricular wall thickness. T here is normal LV segmental wall motion. There is no ventricular septal defect visualized. LVEF is 60 %. Right Ventricle The right ventricle is normal size. The right ventricular systolic function is normal. Atria The left atrium size is normal. The right atrium size is normal. The interatrial septum is intact wit h no evidence for an atrial septal defect. Aortic Valve The aortic valve is normal in structure. There is no aortic valvular stenosis. No aortic regurgitatio n is present. Mitral Valve Mitral valve leaflets are mildly thickened. No evidence of mitral valve stenosis. Trace to mild anibal ral regurgitation. Tricuspid Valve The tricuspid valve is normal in structure. There is no tricuspid valve stenosis. Trace tricuspid reg urgitation. Pulmonic Valve The pulmonary valve is normal in structure. There is no pulmonic valvular stenosis. There is no pulmo milagro valvular regurgitation. Great Vessels The aortic root is normal in size. Ascending aorta is not well visualized. Aortic arch is normal in c aliber. IVC is normal in size and collapses >50% with inspiration. Pericardium There is no pericardial effusion. 2D Dimensions IVSD d PLAX 1.03 cm F: 0.6-1.0 LV Vol A2C d MOD 81.5 mL LVPW d PLAX 1.03 cm F: 0.6 - 1.0 LV Vol A4C d MOD 81.7 mL LVID d PLAX 4.13 cm F: 3.8 - 5.2 LA vol/ BSA A2C s A-L 23.9 mL/m2 LVDs 2.70 cm F: 2.2 - 3.5 LA vol/ BSA A4C s A-L 27.2 mL/m2 RA Area A4C 12.95 cm2 LA Vol/ BSA Biplane s A-L 29.0 mL/m2 RA Vol/ BSA A4C s A-L 24.5 mL/m2 LA Area A4C s MOD 15.52 cm2 LV EF Teichholz 64.0 % LA Area A2C s MOD 12.78 cm2 LVEF (Whitley's) 59.88 % F: 54 - 74 LV EF A4C MOD 59.4 % LV Volume 72.15 mL F: 46 - 106 LV EF A2C MOD 58.1 % LV Volume Index 51.53 mL/m2 F: 29 - 61 LV EF Biplane MOD 59.9 % LV Vol Biplane MOD 84.1 mL SV 50.34 mL FS 34.40 % SV Index 36.06 mL/m2 M-Mode TAPSE 2.46 cm (M/F) >1.7 LV Diastology MV E' medial 0.120 (>0.07 m/s) E/A Ratio 0.9 LV E/e MED 7.75 (<14) MV E Vmax 0.93 (0.4-1.3 m/s) MV E' lateral 0.083 (>0.1 m/s) MV A Vmax 1.05 (0.4-1.3 m/s) LV E/e LAT 11.20 (<14) MV E/A Ratio 0.86 MV E/E' medial 7.79 MV E/E' lateral 11.22 Aortic Valve LVOT Vmax 0.86 m/s LVOT Mean Radames. 0.57 m/s LVOT Peak Grad 3.0 mmHg LVOT Mean Grad 1.5 mmHg LVOT VTI 0.236 m AoV Vmax 1.25 m/s Velocity Ratio 0.69 AoV Mean Radames. 0.82 m/s AoV Peak Grad 6.3 mmHg AoV Mean Grad 3.1 mmHg AoV VTI 0.302 m Mitral Valve MV DT 257 (160-240 msec) MV PHT 75 msec MV Area PHT 2.95 cm2 Pulmonary Valve PV Vmax 0.94 (0.5-1.5 m/s) RVOT Peak Gr. 1.39 mmHg PV Peak Grad 3.5 mmHg RVOT Mean Gr. 0.80 mmHg PV Mean Grad 1.5 mmHg RVOT VTI 0.172 m PV VTI 0.208 m RVOT Vmax 0.59 m/s Tricuspid Valve TR Peak Grad 28.1 mmHg TR Vmax 2.65 m/s RA Pressure 3.00 mmHg RVSP (TR) 31.1 mmHg
== END 2022-09-12 00:42 ==
LOC: DI 00:23
PROVIDERS: PCP Nurse Practitioner Adult Health; Visit Provider Emergency Medicine
DX: R55 Syncope and collapse (principal)
CPT/HCPCS: 93306

== ENCOUNTER 2022-10-01 11:10 | Outpatient (CLI) | payer MEDICARE, BC, SELFPAY ==
--- NOTE | 2022-10-01 10:31 | DI.RAD_ITS ---
Exam(s) XR CLAVICLE RT EXAM: XR CLAVICLE RT CLINICAL HISTORY: clavicle fx f/u TECHNIQUE: 2D digital imaging was performed of the right clavicle. Two images were obtained. AP and axial views were obtained. COMPARISON: CR XR CLAVICLE RT from 08/20/2022 FINDINGS: BONES: There has been no change in alignment of the fracture of the lateral aspect of the right clavi cher. There has been some bridging callus formation about the fracture. The posterior right 2nd rib fracture is again noted. No new fracture is seen. No bony destructive lesion is seen. JOINTS: No dislocation present. SOFT TISSUE: Normal IMPRESSION: Stable right 2nd rib and right clavicular fracture. DATA REPOSITORY: RADIATION DOSE DELIVERED:
== END 2022-10-01 11:11 | disposition home or self-care (01) ==
LOC: DIORS 11:10
PROVIDERS: PCP Nurse Practitioner Adult Health; Referring Provider Nurse Practitioner Adult Health; Visit Provider Student in an Organized Health Care Education/Training Program
DX: S42.034D Nondisplaced fracture of lateral end of right clavicle, subsequent encounter for fracture with routine healing (principal); W19.XXXD Unspecified fall, subsequent encounter
CPT/HCPCS: 99213; 73000

== ENCOUNTER → 2022-10-09 12:20 | Outpatient (BNVA) | payer MEDICARE, BC, SELFPAY | PROVIDERS: PCP Nurse Practitioner Adult Health; Referring Provider Nurse Practitioner Adult Health; Visit Provider Internal Medicine Cardiovascular Disease | DX: I42.9 Cardiomyopathy, unspecified (principal); R55 Syncope and collapse; N18.4 Chronic kidney disease, stage 4 (severe); I12.9 Hypertensive chronic kidney disease with stage 1 through stage 4 chronic kidney disease, or unspecified chronic kidney disease | CPT/HCPCS: 99214 ==

== ENCOUNTER 2022-10-09 15:11 | Outpatient (REF) | payer MEDICARE, BC, SELFPAY | END 2022-10-09 15:12 | disposition home or self-care (01) | LOC: LBN 15:11 | PROVIDERS: PCP Nurse Practitioner Adult Health; Visit Provider Nurse Practitioner Family | DX: R35.0 Frequency of micturition (principal) | CPT/HCPCS: 87077; 87086; 87186 ==

== ENCOUNTER 2022-10-20 02:03 | Outpatient (CLI) | payer MEDICARE, BC, SELFPAY ==
--- NOTE | 2022-10-20 07:30 | DI.MRI_ITS ---
Exam(s) MR UPPER JOINT RT WO EXAM: MR UPPER JOINT RT WO CLINICAL HISTORY: ? rotator cuff tear,rt clavicle fx,s42.001a. TECHNIQUE: Multiplanar multisequence MRI was performed. CR XR HUMERUS RT from 06/30/2022 CR XR CLAVICLE RT from 10/01/2022 FINDINGS: BONES: There findings of a distal right clavicular fracture again seen. There is mild edema seen in the of distal clavicular fracture fragment. There is mild marrow edema seen in the humeral head. JOINTS: There are degenerative changes seen at the acromioclavicular joint. The glenohumeral joint i s normal. TENDONS: Supraspinatus: There is supraspinatus tendinosis. On the sagittal view there is a focus of hyperinte nse signal on the bursal surface of the supraspinatus tendon posteriorly. (Series 8001, image 8). Infraspinatus: Unremarkable. Subscapularis: Unremarkable. Teres Minor: Unremarkable. Biceps and Barnum: Unremarkable. MUSCLES: Unremarkable. GLENOID LABRUM: Unremarkable on this noncontrast examination. SOFT TISSUES: Unremarkable. LIGAMENTS: Unremarkable. OTHER: There is a small amount of fluid in the subacromial subdeltoid bursa. IMPRESSION: 1. Findings suspicious for small bursal surface supraspinatus tendon tear as described above. 2. Distal clavicular fracture. 3. Degenerative changes seen at the acromioclavicular joint. 4. Small amount of fluid in the subacromial subdeltoid bursa. DATA REPOSITORY:
== END 2022-10-20 02:23 ==
PROVIDERS: PCP Nurse Practitioner Adult Health; Visit Provider Student in an Organized Health Care Education/Training Program
DX: S42.034D Nondisplaced fracture of lateral end of right clavicle, subsequent encounter for fracture with routine healing (principal); W19.XXXD Unspecified fall, subsequent encounter; X58.XXXD Exposure to other specified factors, subsequent encounter
CPT/HCPCS: 73221

== ENCOUNTER → 2022-10-29 10:52 | Outpatient (BNVA) | payer MEDICARE, BC, SELFPAY | PROVIDERS: PCP Nurse Practitioner Adult Health; Referring Provider Nurse Practitioner Adult Health; Visit Provider Student in an Organized Health Care Education/Training Program | DX: M75.21 Bicipital tendinitis, right shoulder (principal); S42.034D Nondisplaced fracture of lateral end of right clavicle, subsequent encounter for fracture with routine healing; X58.XXXD Exposure to other specified factors, subsequent encounter | CPT/HCPCS: 99213 ==

== ENCOUNTER 2022-10-30 11:32 | Outpatient (REF) | payer MEDICARE, BC, SELFPAY ==
[2022-10-30 12:45] LABS: Anion Gap 10.4 mmol/L (3-11); BUN 31 mg/dL (7-18); CO2 26.6 mmol/L (21.0-32.0); CREATININE 2.4 mg/dL (0.55-1.02); Calcium 8.7 mg/dL (8.5-10.1); Chloride 104 mmol/L (98-107); Glucose 152 mg/dL (74-106); Magnesium 2.2 mg/dL (1.8-2.4); Potassium 3.7 mmol/L (3.5-5.1); Sodium 141 mmol/L (136-145)
== END 2022-10-30 11:33 | disposition home or self-care (01) ==
LOC: LBO 11:32
PROVIDERS: Student in an Organized Health Care Education/Training Program; PCP Nurse Practitioner Adult Health; Visit Provider Nurse Practitioner Adult Health
DX: E86.0 Dehydration (principal); N39.0 Urinary tract infection, site not specified; Z91.89 Other specified personal risk factors, not elsewhere classified; I12.9 Hypertensive chronic kidney disease with stage 1 through stage 4 chronic kidney disease, or unspecified chronic kidney disease; N18.4 Chronic kidney disease, stage 4 (severe)
CPT/HCPCS: 80048; 83735

== ENCOUNTER 2022-10-30 15:30 | Outpatient (REF) | payer MEDICARE, BC, SELFPAY | END 2022-10-30 15:31 | disposition home or self-care (01) | LOC: LBN 15:30 | PROVIDERS: PCP Nurse Practitioner Adult Health; Visit Provider Student in an Organized Health Care Education/Training Program | DX: R30.0 Dysuria (principal) | CPT/HCPCS: 87077; 87086; 87186 ==

== ENCOUNTER 2022-11-12 04:15 | Outpatient (CLI) | payer MEDICARE, BC, SELFPAY ==
[2022-11-12 09:52] LABS: Bilirubin Negative (Negative); Blood Negative (Negative); Clarity Clear (Clear); Glucose Negative (Negative); Ketones Negative (Negative); Leukocyte Esterase Trace (Negative); Nitrite Negative (Negative); Urobilinogen 0.2 mg/dL (Up to 0.2)
[2022-11-12 10:06] LABS: Bacteria Rare HPF (Negative); Crystals Negative HPF (Negative); Epithelial Cells Moderate HPF (Negative); Mucus Negative (Negative); Other Cells Rare Transitional (Negative); RBC 0-2 HPF (0-2)
[2022-11-12 10:07] LABS: C & S Indicated? No/Sq. Contamination
[2022-11-12 10:52] LABS: Anion Gap 11.7 mmol/L (3-11); BUN 37 mg/dL (7-18); CO2 25.3 mmol/L (21.0-32.0); CREATININE 2.5 mg/dL (0.55-1.02); Calcium 8.8 mg/dL (8.5-10.1); Chloride 102 mmol/L (98-107); Estimated GFR 19.69 (mL/min/1.73m2); Glucose 115 mg/dL (74-106); Potassium 4.1 mmol/L (3.5-5.1); Sodium 139 mmol/L (136-145)
== END 2022-11-12 04:16 | disposition home or self-care (01) ==
LOC: LBO 04:15
PROVIDERS: PCP Nurse Practitioner Adult Health; Referring Provider Student in an Organized Health Care Education/Training Program; Visit Provider Student in an Organized Health Care Education/Training Program
DX: N18.4 Chronic kidney disease, stage 4 (severe) (principal); N39.0 Urinary tract infection, site not specified
CPT/HCPCS: 36415; 80048; 81003; 81015

== ENCOUNTER 2023-01-22 05:07 | Outpatient (CLI) | payer MEDICARE, BC, SELFPAY ==
[2023-01-22 08:40] LABS: Abs Immature Grans 0.01 10^3/uL (0.0-0.06); Absolute Basophil Count 0.07 10^3/uL (0.0-0.2); Absolute Eosinophil Count 0.53 10^3/uL (0.0-0.7); Absolute Lymphocyte Count 1.62 10^3/uL (1.2-3.4); Absolute Monocyte Count 0.84 10^3/uL (0.1-0.8); Absolute Neutrophil Count 3.09 10^3/uL (1.2-6.7); Basophils % 1.1; Eosinophils % 8.6; HCT 39.9 % (36.0-46.0); HGB 13.6 g/dL (11.2-15.7); Immature Grans % 0.2; Lymphocytes % 26.3; MCH 31.6 pg (27.0-33.0); MCHC 34.1 % (32.0-36.0); MCV 93 fL (80-95); MPV 10.9 fL (8.0-11.0); Monocytes % 13.6; Neutrophils % 50.2; Platelet Count 170 10^3/uL (130-400); RBC 4.31 10^6/uL (3.93-5.22); RDW 12.9 % (11.7-14.6); RDW-SD 44.4 fL; WBC 6.16 10^3/uL (4.4-10.8)
[2023-01-22 08:48] LABS: Epithelial Cells Many HPF (Negative)
[2023-01-22 08:49] LABS: Bacteria Few HPF (Negative); C & S Indicated? No/Sq. Contamination; Casts Negative LPF (Negative); Crystals Negative HPF (Negative); Mucus Negative (Negative)
[2023-01-22 09:07] LABS: Albumin 3.7 g/dL (3.4-5.0); Anion Gap 8.6 mmol/L (3-11); BUN 30 mg/dL (7-18); CO2 28.4 mmol/L (21.0-32.0); CREATININE 2.5 mg/dL (0.55-1.02); Calcium 9.3 mg/dL (8.5-10.1); Chloride 103 mmol/L (98-107); Estimated GFR 19.69 (mL/min/1.73m2); Glucose 131 mg/dL (74-106); PHOSPHORUS 4.9 mg/dL (2.6-4.7); Potassium 3.7 mmol/L (3.5-5.1); Sodium 140 mmol/L (136-145)
[2023-01-22 09:28] LABS: COMMENT (LAB VIEW ONLY) 43.03 mg/dL; PROTEIN 52.5 mg/dL; Prot/Crea Ur Ratio 1.22
[2023-01-22 19:29] LABS: Parathyroid Hormone,Intact 108 pg/mL (19-88)
== END 2023-01-22 05:08 | disposition home or self-care (01) ==
LOC: LBO 05:07
PROVIDERS: Student in an Organized Health Care Education/Training Program; Absent Provider Nurse Practitioner Adult Health; PCP Nurse Practitioner Adult Health; Visit Provider Nurse Practitioner Adult Health
DX: N18.4 Chronic kidney disease, stage 4 (severe) (principal); N18.9 Chronic kidney disease, unspecified; N39.0 Urinary tract infection, site not specified
CPT/HCPCS: 36415; 80048; 81015; 82040; 82565; 83970; 84100; 84156; 84550; 85025

== ENCOUNTER 2023-03-12 13:24 | Outpatient (REF) | payer MEDICARE, BC, SELFPAY ==
[2023-03-12 16:36] LABS: Calculated LDL 90 mg/dL (<100); Cholesterol 147 mg/dL (<200); HDL Cholesterol 37 mg/dL (40-60); TSH (W/Ref FT4) 2.71 uIU/mL (0.36-3.74); Triglyceride 100 mg/dL (<150); Vitamin B12 1881 pg/mL (193-986)
== END 2023-03-12 13:25 | disposition home or self-care (01) ==
LOC: LBN 13:24
PROVIDERS: PCP Nurse Practitioner Adult Health; Visit Provider Nurse Practitioner Adult Health
DX: E78.00 Pure hypercholesterolemia, unspecified (principal); E03.9 Hypothyroidism, unspecified; E53.8 Deficiency of other specified B group vitamins
CPT/HCPCS: 80061; 82607; 84443

== ENCOUNTER → 2023-05-18 02:06 | Outpatient (CLI) | payer MEDICARE, BC, SELFPAY ==
--- NOTE | 2023-05-18 08:20 | DI.MAMMO_ITS ---
Exam(s) MAMMO SCREENING EXAM: MAMMO SCREENING CLINICAL HISTORY: screening,Z12.39 TECHNIQUE: Mammograms were interpreted according to the usual protocol including computer analysis w [employer] CAD system, tomosynthesis and C-view imaging. COMPARISON: 2013 through 2022 FINDINGS: The breasts are composed of heterogeneously dense fibroglandular densities, Breast Density category C . No suspicious masses or suspicious microcalcifications are seen. No skin thickening or abnormal axillary lymph nodes are seen. There has been no significant change from prior exams. IMPRESSION: BI-RADS Category 1, Negative mammogram. Yearly screening mammography is recommended. Breast Density Category C, heterogeneously Dense. The mammogram demonstrates the patient's breast tissue is dense. Dense breast tissue is very common a nd is not abnormal but dense breast tissue can make it harder to find cancer on a mammogram. Also, de nse breast tissue may increase breast cancer risk. This information about the result of the mammogram report was provided to the patient to raise their awareness. Use this report when you speak with the patient about their risks for breast cancer, which includes their family history. At that time, you may recommend additional screening tests (Ultrasound or MRI) as they might be useful based on their r isk. A negative radiographic report should not delay biopsy if a dominant or clinically suspicious mass is present. Up to ten percent of cancers are not identified on mammography. A negative report may reinforce clinical impression. Adenosis and dense breasts may obscure an underlying neoplasm. False positive reports average 6 to 10%.
== END ==
PROVIDERS: PCP Nurse Practitioner Adult Health; Visit Provider Nurse Practitioner Adult Health
DX: Z12.31 Encounter for screening mammogram for malignant neoplasm of breast (principal)
CPT/HCPCS: 77063; 77067

== ENCOUNTER 2023-08-20 15:22 | Outpatient (REF) | payer MEDICARE, BC, SELFPAY ==
[2023-08-21 11:03] LABS: Campylobacter PCR Negative (Negative); Salmonella PCR Negative (Negative); Shiga Toxin PCR Negative (Negative); Shigella/Enteroinvasive Ecoli Negative (Negative)
== END 2023-08-20 15:23 | disposition home or self-care (01) ==
LOC: LBN 15:22
PROVIDERS: PCP Nurse Practitioner Adult Health; Visit Provider Family Medicine
DX: K52.9 Noninfective gastroenteritis and colitis, unspecified
CPT/HCPCS: 87329; 87505; 82710; 87177

== ENCOUNTER → 2023-10-22 11:27 | Outpatient (BNVA) | payer MEDICARE, BC, SELFPAY | PROVIDERS: PCP Nurse Practitioner Adult Health; Referring Provider Nurse Practitioner Adult Health; Visit Provider Internal Medicine Cardiovascular Disease | DX: I12.9 Hypertensive chronic kidney disease with stage 1 through stage 4 chronic kidney disease, or unspecified chronic kidney disease (principal); N18.4 Chronic kidney disease, stage 4 (severe); I42.9 Cardiomyopathy, unspecified | CPT/HCPCS: 99024 ==

== ENCOUNTER 2024-03-15 03:14 | Outpatient (CLI) | payer MEDICARE, BC, SELFPAY ==
[2024-03-15 09:07] LABS: HCT 33.3 % (36.0-46.0); HGB 10.7 g/dL (11.2-15.7); MCH 28.6 pg (27.0-33.0); MCHC 32.1 % (32.0-36.0); MCV 89 fL (80-95); MPV 9.3 fL (8.0-11.0); Platelet Count 232 10^3/uL (130-400); RBC 3.74 10^6/uL (3.93-5.22); RDW 14.6 % (11.7-14.6); RDW-SD 47.9 fL; WBC 6.04 10^3/uL (4.4-10.8)
[2024-03-15 10:35] LABS: ALT 15 U/L (14-59); AST 18 U/L (15-37); Albumin 3.1 g/dL (3.4-5.0); Alkaline Phosphatase 68 U/L (46-116); Anion Gap 10.3 mmol/L (3-11); BUN 19 mg/dL (7-18); Bilirubin, Total 0.45 mg/dL (0.2-1.0); CO2 26.7 mmol/L (21.0-32.0); CREATININE 2.4 mg/dL (0.55-1.02); Calcium 8.5 mg/dL (8.5-10.1); Calculated LDL 68 mg/dL (<100); Chloride 102 mmol/L (98-107); Cholesterol 122 mg/dL (<200); Estimated GFR 20.55 (mL/min/1.73m2); Glucose 106 mg/dL (74-106); HDL Cholesterol 41 mg/dL (40-60); Potassium 3.6 mmol/L (3.5-5.1); Sodium 139 mmol/L (136-145); TSH (W/Ref FT4) 3.08 uIU/mL (0.36-3.74); Total Protein 6.7 g/dL (6.4-8.2); Triglyceride 67 mg/dL (<150); Vitamin B12 1625 pg/mL (193-986)
== END 2024-03-15 03:15 | disposition home or self-care (01) ==
LOC: LBO 03:15
PROVIDERS: PCP Nurse Practitioner Adult Health; Visit Provider Nurse Practitioner Adult Health
DX: N18.4 Chronic kidney disease, stage 4 (severe) (principal); I12.9 Hypertensive chronic kidney disease with stage 1 through stage 4 chronic kidney disease, or unspecified chronic kidney disease; E53.8 Deficiency of other specified B group vitamins; E03.9 Hypothyroidism, unspecified; K90.9 Intestinal malabsorption, unspecified
CPT/HCPCS: 36415; 80053; 80061; 85027; 82607; 84443

== ENCOUNTER 2024-03-28 04:43 | Outpatient (CLI) | payer MEDICARE, BC, SELFPAY ==
[2024-03-28 11:54] LABS: Abs Immature Grans 0.02 10^3/uL (0.0-0.06); Absolute Basophil Count 0.08 10^3/uL (0.0-0.2); Absolute Lymphocyte Count 0.77 10^3/uL (1.2-3.4); Absolute Monocyte Count 0.88 10^3/uL (0.1-0.8); Absolute Neutrophil Count 5.37 10^3/uL (1.2-6.7); Basophils % 1.1 %; Eosinophils % 2.7 %; HCT 35.5 % (36.0-46.0); HGB 11.7 g/dL (11.2-15.7); Immature Grans % 0.3 %; Lymphocytes % 10.5 %; MCH 28.3 pg (27.0-33.0); MCV 86 fL (80-95); MPV 9.9 fL (8.0-11.0); Neutrophils % 73.4 %; Platelet Count 240 10^3/uL (130-400); RBC 4.13 10^6/uL (3.93-5.22); RDW 14.2 % (11.7-14.6); RDW-SD 44.3 fL; Reticulocyte 1.1 % (0.5-2.4); WBC 7.32 10^3/uL (4.4-10.8)
[2024-03-28 12:19] LABS: Iron 22 ug/dL (50-170); Total Iron Binding Capacity 307 ug/dL (250-450); Transferrin Sat 7 % (15-50)
[2024-03-28 12:26] LABS: Ferritin 65 ng/mL (8-252)
[2024-03-29 09:51] LABS: Transferrin 238 mg/dL (201-352)
== END 2024-03-28 04:44 | disposition home or self-care (01) ==
LOC: LBO 04:43
PROVIDERS: Absent Provider Nurse Practitioner Adult Health; PCP Nurse Practitioner Adult Health; Referring Provider Nurse Practitioner Adult Health; Visit Provider Nurse Practitioner Adult Health
DX: D64.9 Anemia, unspecified (principal)
CPT/HCPCS: 36415; 82728; 83540; 83550; 84466; 85025; 85045

== ENCOUNTER 2024-05-23 01:51 | Outpatient (CLI) | payer MEDICARE, BC, SELFPAY ==
--- NOTE | 2024-05-23 09:10 | DI.MAMMO_ITS ---
Exam(s) MAMMO SCREENING EXAM: MAMMO SCREENING CLINICAL HISTORY: screening,z12.39 TECHNIQUE: Bilateral full field digital CC and MLO mammographic images were obtained with 3D tomosyn thesis and utilizing computer aided detection (CAD). COMPARISON: Available for comparison. FINDINGS: Masses/Architectural Distortion: There is an asymmetric density in the axillary tail region of the le ft breast on the MLO view 8.5 cm from the nipple. This may represent fibroglandular tissue but a spo t compression views requested for further evaluation. On the left craniocaudad view, there is an ovo id asymmetric density laterally measuring 1 cm and located 3.5 cm from the nipple. This should also be evaluated with a spot compression view. Microcalcifications: No suspicious pleomorphic-type are seen. Skin Thickening/Nipple Retraction: None. IMPRESSION: 1. Asymmetric density seen in the left breast as described above. 2. These area should be evaluated with spot compression views. Left breast ultrasound may be indicat ed at that time. BI-RADS Category 0 - Incomplete: Need additional imaging evaluation Breast Density - Category D - Extremely dense Breast density category C or D implies that the patient has dense breast tissue. Dense breast tissue is very common and is not abnormal but dense breast tissue can make it harder to find cancer on a ma mmogram. Also, dense breast tissue may increase their breast cancer risk. This information about the result of the mammogram report was provided to the patient to raise their awareness. Use this report when you speak with the patient about their risks for breast cancer, which includes their family hist ory. At that time, you may recommend for more screening tests (Ultrasound or MRI) as they might be us eful based on their risk. A negative radiographic report should not delay biopsy if a dominant or clinically suspicious mass is present. Up to ten percent of cancers are not identified on mammography. A negative report may reinforce clinical impression. Adenosis and dense breasts may obscure an underlying neoplasm. False positive reports average 6 to 10%. Patient will receive a letter notifying them of these results.
== END 2024-05-23 02:11 ==
LOC: DI 01:51
PROVIDERS: PCP Nurse Practitioner Adult Health; Visit Provider Nurse Practitioner Adult Health
DX: Z12.31 Encounter for screening mammogram for malignant neoplasm of breast (principal); R92.343 Mammographic extreme density, bilateral breasts
CPT/HCPCS: 77063; 77067

== ENCOUNTER 2024-05-25 02:43 | Outpatient (CLI) | payer MEDICARE, BC, SELFPAY ==
--- NOTE | 2024-05-25 | DI.MAMMO_ITS ---
Exam(s) MG MAMMO SCREEN CALL BACK UNI US BREAST LT COMPLETE EXAM: MG MAMMO SCREEN CALL BACK UNI and U/S breast LT complete CLINICAL HISTORY: F/U MAMMO, ASYMMETRIC DENSITY LT BREAST. TECHNIQUE: Craniocaudal and mediolateral oblique Full Field Digital Mammography views of the breast with Computer Aided Diagnosis followed by Tomosynthesis and complete left breast ultrasound. All 4 quadrants of the left breast were evaluated sonographically including the axilla and retroareolar reg ion. COMPARISON: Comparison is made with prior examinations. FINDINGS: Mammography/Tomosynthesis: Masses/Architectural Distortion: The areas of concern are less prominent on the current examination. No mass is identified. Microcalcifictions: No suspicious pleomorphic-type are seen. Skin Thickening/Nipple Retraction: None. Complete left breast US: Echotexture: Normal appearance of the glandular tissue. Shadowing: No suspicious foci. Cyst: None. Solid lesions: Benign-appearing lymph nodes are seen in the left axilla. No suspicious solid masses are seen sonographically. Ductal dilation: None. IMPRESSION: 1. No definite evidence of malignancy is noted. 2. A six-month follow-up left mammogram is requested for re-evaluation. 3. The findings were discussed with the patient on the date of the examination. BI-RADS Category 3 - 6 month - Probably Benign Finding: Recommend follow-up imaging in 6 months Breast Density - Category D - Extremely dense Breast density Category C or D implies that the patient has dense breast tissue. Dense breast tissue can make it harder to find cancer on a mammogram. Dense breast tissue is also associated with an incr eased risk of breast cancer. This information about the result of the mammogram report was provided to the patient to raise their awareness. Use this report when you speak with the patient about their risks for breast cancer, which includes their family history. At that time, you may recommend additional screening tests (Ultrasoun d or MRI) as these tests may add significant information. A negative radiographic report should not delay biopsy if a dominant or clinically suspicious mass is present. Up to ten percent of cancers are not identified on mammography. A negative report may reinforce clinical impression. Adenosis and dense breasts may obscure an underlying neoplasm. False positive reports average 6 to 10%. Patient will receive a letter notifying them of these results.
== END 2024-05-25 03:03 ==
LOC: DI 02:43
PROVIDERS: PCP Nurse Practitioner Adult Health; Visit Provider Nurse Practitioner Adult Health
DX: R92.8 Other abnormal and inconclusive findings on diagnostic imaging of breast (principal); Z12.31 Encounter for screening mammogram for malignant neoplasm of breast
CPT/HCPCS: 76642; 77063; 77067

== ENCOUNTER 2024-08-30 21:13 | Inpatient (IN) | payer MEDICARE, BC, SELFPAY ==
[2024-08-30] VITALS (24 sets, daily range): BP systolic 118–146; BP diastolic 46–103; PULSE 82–97; RESP 12–26; TEMP 36.9; O2SAT 87–95
--- NOTE | 2024-08-30 21:15 | RT.EKG_ITS ---
APPROVED REPORT Exam: Resting ECG Reason for Exam: syncope Patient Location: E HR:94 bpm ECG Measurements Heart Rate 94 AXIS [place] 154 P 59 QRSd 82 QRS 12 QT 345 T 37 QTc 433 Conclusion Sinus rhythm [address] changes
--- NOTE | 2024-08-30 21:45 | DI.CT_ITS ---
Exam(s) CT HEAD WO EXAM: CT HEAD WO CLINICAL HISTORY: AMS. TECHNIQUE: Imaging Protocol: Axial computed tomography images with coronal and sagittal reformatted images were created and reviewed COMPARISON: CT CT HEAD WO from 06/30/2022 FINDINGS: Ventricles and Extra axial spaces: Normal in size and morphology for the patient's age. Hemorrhage: None. Cerebral parenchyma: No evidence of acute infarct or mass. 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 Mild white matter changes consistent with small vessel disease. Midline shift: None. Brainstem/Cerebellum: Normal. Calvarium: Normal. Visualized Paranasal sinuses:Clear. Mastoids: Clear. Soft Tissues: Unremarkable. ORBITS: Unremarkable. PITUITARY: Not enlarged. IMPRESSION: No acute intracranial process. RADIATION DOSE DELIVERED: 902.53mGy.cm Total DLP DATA REPOSITORY: All CT scans at this facility are submitted to the National Radiology Data Registry (NRDR) Dose Index Registry (DIR) with the [employer] (ACR). RADIATION OPTIMIZATION: All CT scans at this facility use at least one of these dose optimization te chniques: automated exposure control; mA and/or kV adjustment per patient size (includes targeted exa ms where dose is matched to clinical indication); or iterative reconstruction.
[2024-08-30 21:56] LABS: Abs Immature Grans 0.09 10^3/uL (0.0-0.06); Absolute Basophil Count 0.04 10^3/uL (0.0-0.2); Absolute Eosinophil Count 0.17 10^3/uL (0.0-0.7); Absolute Lymphocyte Count 0.38 10^3/uL (1.2-3.4); Absolute Monocyte Count 1.22 10^3/uL (0.1-0.8); Absolute Neutrophil Count 10.02 10^3/uL (1.2-6.7); Basophils % 0.3 %; Eosinophils % 1.4 %; HCT 31.9 % (36.0-46.0); HGB 10.7 g/dL (11.2-15.7); Immature Grans % 0.8 %; Lymphocytes % 3.2 %; MCH 27.5 pg (27.0-33.0); MCHC 33.5 % (32.0-36.0); MCV 82 fL (80-95); MPV 9.8 fL (8.0-11.0); Monocytes % 10.2 %; Neutrophils % 84.1 %; Platelet Count 173 10^3/uL (130-400); RBC 3.89 10^6/uL (3.93-5.22); RDW 15.8 % (11.7-14.6); RDW-SD 47.6 fL; WBC 11.92 10^3/uL (4.4-10.8)
[2024-08-30 22:06] LABS: INR 1.1 (0.9-1.1); Prothrombin Time 11.4 sec (9.1-11.1)
[2024-08-30 22:13] LABS: Ammonia 16 umol/L (11-32)
[2024-08-30] MEDS: Ondansetron 4 MG/2 ML VIAL IVP (22:13)
[2024-08-30 22:22] LABS: ALT 14 U/L (14-59); AST 24 U/L (15-37); Albumin 3.3 g/dL (3.4-5.0); Alkaline Phosphatase 77 U/L (46-116); BUN 26 mg/dL (7-18); Bilirubin, Total 0.6 mg/dL (0.2-1.0); CREATININE 2.3 mg/dL (0.55-1.02); Calcium 8.6 mg/dL (8.5-10.1); Chloride 99 mmol/L (98-107); Estimated GFR 21.62 (mL/min/1.73m2); Glucose 115 mg/dL (74-106); Magnesium 1.5 mg/dL (1.8-2.4); Sodium 134 mmol/L (136-145); TSH (W/Ref FT4) 4.54 uIU/mL (0.36-3.74); Total Protein 7.2 g/dL (6.4-8.2); Troponin I 10 ng/L (<or=51)
--- NOTE | 2024-08-30 22:24 | DI.VRAD_ITS ---
PROCEDURE INFORMATION: Exam: CT Head Without Contrast Exam date and time: 08/30/2024 10:04 PM Age: 73 years old Clinical indication: Stroke-like symptoms; Altered mental status/memory loss TECHNIQUE: Imaging protocol: Computed tomography of the head without contrast. Other technique: STROKE PROTOCOL was implemented. COMPARISON: CT HEAD WO 06/30/2022 10:31 AM FINDINGS: Brain: Old lacunar infarction within the right caudate head nucleus. Periventricular and subcortical white matter areas of hypoattenuation, likely chronic small vessel ischemic change, demyelination, or gliosis. No intracranial mass, acute hemorrhage, or acute infarction. Cerebral ventricles: No ventriculomegaly. Paranasal sinuses: Minimal ethmoid sinus disease. Mastoid air cells: Normal as visualized. Bones: Unremarkable. No acute fracture. Soft tissues: Unremarkable. Vasculature: Atherosclerotic vascular disease. IMPRESSION: No acute intracranial abnormality. ASSESSMENT: ASPECTS ([facility] Stroke Program Early CT Score) is 10. Dictated and Authenticated by: Rakesh Jones MD. Orderin Jeanette Chen MD
--- NOTE | 2024-08-30 22:30 | DI.RAD_ITS ---
Exam(s) XR PORTABLE CHEST AP EXAM: XR PORTABLE CHEST AP CLINICAL HISTORY: synocpe TECHNIQUE: 2D digital imaging was performed. COMPARISON: CR XR THORACIC SPINE COMPLETE from 03/10/[address] CHEST/ABD/PEL WO from 06/30/2022 FINDINGS: LUNGS: Clear. No pleural abnormality seen. HEART: Normal enlarged. AORTA: Calcification at the arch. Stent in lower descending aorta. BONES: Unremarkable for age. Soft tissues: Unremarkable. IMPRESSION: No acute findings. DATA REPOSITORY: RADIATION DOSE DELIVERED:
[2024-08-30 22:38] LABS: ETHANOL BLOOD < 3.0 mg/dL (<10)
[2024-08-30 22:43] LABS: BE (Venous) -1 mmol/L (-2-3); HCO3 (Venous) 23 mmol/L (23-28); Lactate 0.6 mmol/L (<or=2.0); O2 Sat (Venous) 81 %; TCO2 (Venous) 21 mmol/L (24-29); pCO2 (Venous) 31 mmHg (41-51); pH (Venous) 7.47 (7.31-7.41); pO2 (Venous) 44 mmHg
[2024-08-30 22:47] LABS: FREE T4 1.14 ng/dL (0.76-1.46)
[2024-08-30] MEDS: MAGNESIUM SULFATE 2 GM/50 ML BAG IVINF (22:47)
[2024-08-30 22:55] LABS: Lipase 17 U/L (<78)
--- NOTE | 2024-08-30 22:58 | W.ED.GENAD ---
Discharge Plan Disposition Patient Disposition: Admit to [facility] Discharge Details Clinical Impression: Syncope, Hypoxia, CKD (chronic kidney disease) stage 4, GFR 15-29 ml/min Primary Care Provider: Lexus Lawson ED Provider: Richie Reid Home Meds and New Rx's Prescriptions: No Action trazodone 300 mg tablet 150 - 300 mg PO QHS Qty: 90 3RF melatonin 10 mg capsule 10 mg PO HS PRN loperamide 2 mg capsule See Rx Instructions PO DAILY PRN (Reason: diarrhea) Qty: 135 0RF Rx Instructions: Take 2 cap PO QAM and 1 cap Q other PM for diarrhea colestipol 1 gram tablet 1 g PO BID Patient Comments: chronic diarrhea gabapentin 300 mg capsule 300 mg PO BID Qty: 180 0RF Rx Instructions: Dose increased 08/25/2024 amlodipine 5 mg tablet See Rx Instructions .ROUTE .COMPLEX Qty: 90 3RF Dose Instruction: TAKE ONE TABLET BY MOUTH EVERY DAY Rx Instructions: TAKE ONE TABLET BY MOUTH EVERY DAY levothyroxine 50 mcg tablet See Rx Instructions .ROUTE .COMPLEX Qty: 90 3RF Dose Instruction: TAKE 1 TABLET BY MOUTH ONCE DAILY Rx Instructions: TAKE 1 TABLET BY MOUTH ONCE DAILY aspirin [Aspir-81] 81 MG tablet,delayed release (DR/EC) 81 mg PO DAILY potassium chloride [Klor-Con M20] 20 mEq tablet,ER particles/crystals 20 meq PO DAILY hydralazine 25 mg tablet 25 mg PO TID Qty: 300 7RF Rx Instructions: per [facility] 01/21/19 isosorbide dinitrate 20 mg tablet 20 mg PO TID Qty: 300 6RF Rx Instructions: per [facility] [place]/c 01/21/19 mecobalamin (vitamin B12) 1,000 mcg tablet,chewable 1,000 mcg PO DAILY Qty: 90 3RF Rx Instructions: B12 deficiency--ok to substitute or purchase OTC carvedilol 12.5 mg tablet See Rx Instructions .ROUTE .COMPLEX Qty: 180 3RF Dose Instruction: TAKE ONE TABLET BY MOUTH TWICE A DAY Rx Instructions: TAKE ONE TABLET BY MOUTH TWICE A DAY atorvastatin 20 mg tablet See Rx Instructions .ROUTE .COMPLEX Qty: 90 3RF Dose Instruction: TAKE ONE TABLET BY MOUTH AT BEDTIME Rx Instructions: TAKE ONE TABLET BY MOUTH AT BEDTIME furosemide 20 mg tablet See Rx Instructions .ROUTE .COMPLEX Qty: 180 3RF Dose Instruction: TAKE 1 TABLET BY MOUTH EVERY MORNING AND AT 4 P.M Rx Instructions: TAKE 1 TABLET BY MOUTH EVERY MORNING AND AT 4 P.M HPI General Date/Time Provider Initiated Documentation: 08/30/24 21:22. Limitations to Documentation: no limitations. Information obtained by: patient and family. HPI Narrative: 73-year-old female with past medical history of CKD, cardiomyopathy, hypothyroid, IBS presents for evaluation after a syncopal episode. Patient's reports that she was in her normal state of health sitting in a chair talking to her daughter. She told her daughter that she needed to get off the phone and promptly threw up. He reports that there was a large volume of emesis and brought some for us to review. She then went to the bathroom and he heard her fall in the bathroom. She had ambulated independently to the bathroom. He reports that he ran into her bathroom and found her on the floor. She seemed to be a little bit confused and had some generalized weakness and had difficulty getting up on her own. He reports that he cleaned her up and brought her here for further evaluation. Related Data Home Medications ?Medication ?Instructions ?Recorded ?Confirmed aspirin 81 mg tablet,delayed 81 mg PO DAILY 04/19/13 08/30/24 release (Aspir-) potassium chloride 20 mEq 20 meq PO DAILY 08/06/22 08/30/24 tablet,extended release(part/cryst) (Klor-Con M) hydralazine 25 mg tablet 25 mg PO TID #300 tabs 06/11/23 08/30/24 isosorbide dinitrate 20 mg tablet 20 mg PO TID #300 tabs 06/11/23 08/30/24 mecobalamin (vitamin B12) 1,000 1,000 mcg PO DAILY #90 tabs 06/22/23 08/30/24 mcg chewable tablet trazodone 300 mg tablet 150 - 300 mg (0.5 - 1 x 300 mg) PO 08/20/23 08/30/24 QHS sleep #90 tabs loperamide 2 mg capsule See Rx Instructions PO DAILY PRN 03/17/24 08/30/24 diarrhea #135 caps melatonin 10 mg capsule 10 mg PO HS PRN 03/17/24 08/30/24 carvedilol 12.5 mg tablet See Rx Instructions .Route 12/19/24 05/06/25 .COMPLEX #180 tabs atorvastatin 20 mg tablet See Rx Instructions .Route 06/08/24 08/30/24 .COMPLEX #90 tabs furosemide 20 mg tablet See Rx Instructions .Route 08/15/24 08/30/24 .COMPLEX #180 tabs amlodipine 5 mg tablet See Rx Instructions .Route 08/25/24 08/30/24 .COMPLEX #90 tabs colestipol 1 gram tablet 1 g PO BID 08/25/24 08/30/24 gabapentin 300 mg capsule 300 mg PO BID leg pain #180 caps 08/25/24 08/30/24 levothyroxine 50 mcg tablet See Rx Instructions .Route 08/25/24 08/30/24 .COMPLEX #90 tabs Previous Rx's ?Medication ?Instructions ?Recorded hydralazine 25 mg tablet 25 mg PO TID #300 tabs 06/11/23 isosorbide dinitrate 20 mg tablet 20 mg PO TID #300 tabs 06/11/23 mecobalamin (vitamin B12) 1,000 1,000 mcg PO DAILY #90 tabs 06/22/23 mcg chewable tablet trazodone 300 mg tablet 150 - 300 mg (0.5 - 1 x 300 mg) PO 08/20/23 QHS sleep #90 tabs loperamide 2 mg capsule See Rx Instructions PO DAILY PRN 03/17/24 diarrhea #135 caps carvedilol 12.5 mg tablet See Rx Instructions .Route 04/14/24 .COMPLEX #180 tabs atorvastatin 20 mg tablet See Rx Instructions .Route 06/08/24 .COMPLEX #90 tabs furosemide 20 mg tablet See Rx Instructions .Route 08/15/24 .COMPLEX #180 tabs amlodipine 5 mg tablet See Rx Instructions .Route 08/25/24 .COMPLEX #90 tabs gabapentin 300 mg capsule 300 mg PO BID leg pain #180 caps 08/25/24 levothyroxine 50 mcg tablet See Rx Instructions .Route 08/25/24 .COMPLEX #90 tabs Allergies Allergy/AdvReac Type Severity Reaction Status Date / Time Iodinated Contrast Media Allergy Severe Anaphylaxis Verified 08/30/24 21:22 shellfish derived Allergy Mild Upset Verified 08/30/24 21:22 stomach General Stated Complaint: [id number] BILLY: 3 Exam Narrative Exam Narrative: Review of Systems: All systems reviewed & are unremarkable except as noted in HPI and below Well-developed, chronically ill-appearing Bruising noted to the left side of the face, no facial instability or malocclusion, no C-spine tenderness PERRL, normal conjunctiva RRR, no murmur Unlabored respiratory effort, oxygen level noted to be between 88 and 90 though she is not working hard to breathe, no signs of tachypnea or retractions, clear breath sounds bilaterally Nondistended abdomen , soft nontender Scattered bruises in multiple stages on bilateral arms says that these are old no focal neurologic deficits, sensation and strength intact, no facial asymmetry, speech clear and fluent, no aphasia or dysarthria though the patient seems slightly confused though this might be because she does not have her hearing aids in Course Vital Signs Vital signs: Vital Signs Temperature 36.9 C 08/30/24 21:16 Pulse 97 H 08/30/24 21:16 Respiratory Rate 20 08/30/24 21:16 Blood Pressure 146/71 H 08/30/24 21:16 Pulse Oximetry 87 L 08/30/24 21:16 Temperature 36.9 C 08/30/24 21:16 Temperature Source Oral 08/30/24 21:16 Pulse 92 H 08/30/24 22:50 Pulse 92 H 08/30/24 22:50 Respiratory Rate 19 08/30/24 22:50 Respiratory Effort Normal 08/30/24 22:19 Respiratory Depth Normal 08/30/24 22:19 Blood Pressure 118/56 L 08/30/24 22:46 Blood Pressure Mean 78 08/30/24 22:46 Blood Pressure Position Sitting 08/30/24 21:16 Pulse Oximetry 93 08/30/24 22:50 Oxygen Delivery Method Room Air 08/30/24 21:16 Oxygen Flow Rate 0 08/30/24 21:16 Pain Level 0 08/30/24 21:16 Comment PT put on 2 L NC 08/30/24 22:50 Lab/Test Results Lab/Test Results: Laboratory Tests Range/Units 08/30/24 08/30/24 08/30/24 21:50 21:55 22:32 WBC (4.4-10.8) 10^3/uL 11.92 H RBC (3.93-5.22) 10^6/uL 3.89 L Hgb (11.2-15.7) g/dL 10.7 L Hct (36.0-46.0) % 31.9 L MCV (80-95) fL 82 MCH (27.0-33.0) pg 27.5 MCHC (32.0-36.0) % 33.5 RDW (11.7-14.6) % 15.8 H Plt Count (130-400) 10^3/uL 173 MPV (8.0-11.0) fL 9.8 Immature Gran % % 0.8 Neutrophils % % 84.1 Lymphocytes % % 3.2 Monocytes % % 10.2 Eosinophils % % 1.4 Basophils % % 0.3 Nucleated RBC % (0.0-0.3) % 0.0 Absolute Neutrophils (1.2-6.7) 10^3/uL 10.02 H Absolute Lymphocytes (1.2-3.4) 10^3/uL 0.38 L Absolute Monocytes (0.1-0.8) 10^3/uL 1.22 H Absolute Eosinophils (0.0-0.7) 10^3/uL 0.17 Absolute Basophils (0.0-0.2) 10^3/uL 0.04 PT (9.1-11.1) sec 11.4 H INR (0.9-1.1) 1.1 VBG pH (7.31-7.41) 7.47 H VBG pCO2 (41-51) mmHg 31 L VBG pO2 mmHg 44 VBG HCO3 (23-28) mmol/L 23 VBG Total CO2 (24-29) mmol/L 21 L VBG O2 Saturation % 81 VBG Base Excess (-2-3) mmol/L -1 VBG Lactate (<or=2.0) mmol/L 0.6 Sodium (136-145) mmol/L 134 L Potassium (3.5-5.1) mmol/L 4.0 Chloride (98-107) mmol/L 99 Carbon Dioxide (21.0-32.0) mmol/L 26.0 Anion Gap (3-11) mmol/L 9.0 BUN (7-18) mg/dL 26 H Creatinine (0.55-1.02) mg/dL 2.3 H Est GFR (CKD-EPI 2020) (mL/min/1.73m2) 21.62 Glucose (74-106) mg/dL 115 H Calcium (8.5-10.1) mg/dL 8.6 Magnesium (1.8-2.4) mg/dL 1.5 L Total Bilirubin (0.2-1.0) mg/dL 0.6 AST (15-37) U/L 24 ALT (14-59) U/L 14 Alkaline Phosphatase (46-116) U/L 77 Ammonia (11-32) umol/L 16 Troponin I (<or=51) ng/L 10 Total Protein (6.4-8.2) g/dL 7.2 Albumin (3.4-5.0) g/dL 3.3 L Lipase (<78) U/L 17 TSH (0.36-3.74) uIU/mL 4.54 H Free T4 (0.76-1.46) ng/dL 1.14 Ethyl Alcohol (<10) mg/dL < 3.0 Medical Decision Making Emergent evaluation of acute syncope. Patient had vomiting episode and then shortly after had syncope. Initial differential includes vasovagal episode, GI illness, cardiac dysrhythmia, less likely ACS. Patient is not complaining of anything at this time, her blood pressure is normal. EKG reviewed and does not reveal any acute ischemic changes. Her she has noted to be slightly hypoxic. Unclear etiology of this. The patient does not wear oxygen at home and her denies any history of pulmonary problems. Patient was sent emergently for CT imaging of her brain. This does not reveal an acute traumatic pathology or an acute stroke. Lab work was obtained and reviewed. Mild leukocytosis at 11.9. Her hemoglobin is stable at her baseline. Her INR is normal at 1.1. VBG obtained and this does not reveal an acute No respiratory derangement. Electrolytes demonstrate mild hypomagnesemia and this was replaced with IV. Her creatinine and GFR are at her baseline. Her LFTs are not deranged. Her ammonia is not elevated so I doubt hepatic encephalopathy. Troponins x 2 are also negative. Her lipase lactic acid and thyroid function are also within normal limits. Chest x-ray was obtained, aorta repair noted, mild cardiomegaly, no pleural effusion or focal consolidation. At this time I have no explanation for the patient's hypoxia. I have discussed with the hospitalist and he has requested a D-dimer and a CT of her chest. PE considered but unlikely given that she does not have hypotension or tachycardia. Unable to get a CT angiogram because she has a documented anaphylaxis reaction to iodinated contrast. states that if she gets contrast she will . After these additional tests, the patient will be admitted to hospital medicine for further management. Quality:[facility] Health Related Social Needs: No Data to Display PFSH All Active Problems (Updated 08/30/24 @ 23:36 by Richie Reid MD) Hypoxia (Acute) Syncope (Chronic) Normochromic normocytic anemia (Acute ~02/2024) Irritable bowel syndrome with both constipation and diarrhea (Acute ~11/2023) [facility]-12/08/23 Middle insomnia (Chronic) RX Trazodone Steatorrhea (Acute) Pararenal abdominal aortic aneurysm (AAA) without rupture (Acute) [facility] [place] 06/24/23 Hypertensive kidney disease with CKD stage IV (Chronic ~01/2021) 06/25/21 [facility] [place] Nephrology note Asymmetrical sensorineural hearing loss (Chronic ~2018) Cervical spondylosis (Acute 08/24/07) 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 Hep B in 2012 Osteopenia (Acute 11/18/12) DEXA 10/2012; T -1.2 at hip DEXA 05/02/14; T -2.0 hip Renal artery stenosis (Chronic ~2018) (R) > (L) (R) YING bypass graft 09/12 Hypothyroidism (Chronic) Gastro-esophageal reflux disease without esophagitis (Chronic ~11/2018) EGD @ [facility] [place] 12/16/18 CKD (chronic kidney disease) stage 4, GFR 15-29 ml/min (Chronic) G4/A3; [facility] [place] Nephro Cardiomyopathy (Acute ~2019) Cardiology LVEF 59% on 06/16; 55-60% 01/2022 ECHO Chronic diarrhea (Chronic ~2019) Secondary hyperparathyroidism (Chronic) CKD Syncope (Acute ~01/2022) Presumed orthostasis B12 deficiency (Chronic) Medical History Biceps tendinitis of right shoulder Right clavicle fracture (~06/30/22) AMS (altered mental status) Transient neurologic deficit Shingles BCC (basal cell carcinoma), face (07/05/20) 05/14/20 right nasal ala- shave biopsy. Basal Cell Ca, moved to hx and BCC to problem list. Neoplasm 05/14/20 right nasal ala- shave biopsy. Basal Cell Ca, moved to hx and BCC to problem list. 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 3.7cm 01/04/16- ultrasound 3.2 cm 01/04/16-Abd US 3.2 cm diameter 07/2015 - 3.5 cm rechecked 01/01/18 note 04/18/20 substantial increase in last 6 mos, CTA ordered Hepatitis B (02/24/13) Dr Watt [facility] [place] Pt. states she revieved treatment Surgical History History of aortic aneurysm repair Vascular surgery Posterior subcapsular age-related cataract, right eye Nuclear sclerotic cataract of right eye Posterior subcapsular age-related cataract of left eye Nuclear sclerotic cataract of left eye History of intestinal surgery History of AAA (abdominal aortic aneurysm) repair (~10/01/21) 10/01/21 [facility] [place] Status post Mohs surgery (07/05/20) right nasal ala for BCC S/P exploratory laparotomy (~03/2020) 04/24/20 [facility] [place] with lysis of adhesions Status post surgery (09/07/18) right external iliac to right renal artery bypass with reversed rifht greater saphenous vein, [facility] [place] Hysterectomy, Laproscopic (~03/1984) EGD W/ BS (08/12/12) DR CANCHOLA Colonoscopy - MAC (09/27/12) DR CANCHOLA, REPEAT 10 YRS. Bilateral salpingectomy with oophorectomy Family History Grandmother Essential hypertension Mother , age 68 of ovarian cancer Ovarian cancer Father , age 60 of emphysema Emphysema lung Smoker Sister Essential hypertension Brother , age 34 of suicide Suicide Son No problems noted. Daughter No problems noted. Other Abdominal aortic aneurysm (AAA) without rupture Social History Smoking/Tobacco Use Status: Former Tobacco Use Quit Date: 04/27/08 Tobacco: How many years used: 45 Smoking risk assessment performed?: Yes Alcohol Intake: current Alcohol Intake frequency: holidays/special occasions only Alcohol type: wine Drug use: Never Substance use type: does not use Caregiver/Support person: Yes Foster care: No Household members: spouse Housing: house Number of Children: 2 number of grandchildren: 3 Communication Needs: Corrective Lenses Education Level: college Do you need help understanding health information?: Rarely 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, 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 Pets and animals: Yes Current gender identity: female What is your relationship status?: How often do you talk on the phone with friends or family?: three or more times per week How often do you get together with friends or relatives?: once per week Panel score (0-1 are the most socially isolated patients): 2 What type of physical activity do you participate in: none Special yanira needs: No Agree to transfusion: Yes Seatbelt use: always Drive intox or ride w/intox tour bus driver/guide: No Working smoke detector in home: Yes Fire extinguisher in home: Yes Carbon monox detector in home: Yes Do you feel safe at home: Yes Do you feel safe in your relationship?: Yes
[2024-08-30 23:04] LABS: Troponin I 12 ng/L (<or=51)
--- NOTE | 2024-08-30 23:08 | DI.VRAD_ITS ---
PROCEDURE INFORMATION: Exam: XR Chest Exam date and time: 08/30/2024 10:57 PM Age: 73 years old Clinical indication: Other: Syncope; Prior surgery; Surgery date: 6+ months; Surgery type: Aortic stent TECHNIQUE: Imaging protocol: Radiologic exam of the chest. Views: 1 view. COMPARISON: CT CHEST/ABD/PEL WO 06/30/2022 10:34 AM FINDINGS: Lungs: Calcified granuloma within the periphery of the right upper lobe. Minimal bibasilar atelectasis or scarring. No focal consolidations or pulmonary edema. Pleural spaces: Normal. Heart/Mediastinum: Normal. Vasculature: Partially visualized metallic stent within the visualized distal thoracic aorta and upper abdominal aorta. Atherosclerotic vascular disease. Bones/joints: No acute abnormality. IMPRESSION: No acute cardiopulmonary abnormality. Dictated and Authenticated by: Rakesh Jones MD. Orderin Jeanette Chen MD
--- NOTE | 2024-08-30 23:15 | DI.CT_ITS ---
Exam(s) CT CHEST WO EXAM: CT CHEST WO CLINICAL HISTORY: hypoxia. TECHNIQUE: Imaging protocol: Axial computed tomography images were obtained and coronal and sagittal reformatted images were created and reviewed. Computer aided detection (CAD) was utilized. CONTRAST MATERIAL: Noncontrast COMPARISON: CT CT CHEST/ABD/PEL WO from 06/30/2022 CR,XR XR PORTABLE CHEST AP from 08/30/2024 FINDINGS: Pulmonary parenchyma: Mild basilar atelectasis or scarring. No consolidation. No suspicious nodules. No evidence of pulmonary edema. Interstitial changes: None. Emphysema: Moderate centrilobular emphysema. Tracheobronchial tree: No mucous plugging. No bronchiectasis . Pleura: No effusion or pneumothorax. Heart: The heart is mildly dilated. The coronary arteries show moderate to severe calcifications. Dense mitral annular calcification. Aortic valve calcification. Aorta: Descending aorta is dilated and a stent is in place, unchanged. Atherosclerotic changes. A s tent is also present in the SMA. Lymph nodes: No enlarged lymph nodes. Bones: Degenerative changes are seen. No evidence of compression fracture. Upper abdomen: Unremarkable. Soft tissues: Unremarkable. IMPRESSION: No acute abnormality. RADIATION DOSE DELIVERED: 87.32mGy.cm Total DLP 87.32mGy.cm Total DLP DATA REPOSITORY: All CT scans at this facility are submitted to the National Radiology Data Registry (NRDR) Dose Index Registry (DIR) with the [employer] (ACR). RADIATION OPTIMIZATION: All CT scans at this facility use at least one of these dose optimization te chniques: automated exposure control; mA and/or kV adjustment per patient size (includes targeted exa ms where dose is matched to clinical indication); or iterative reconstruction.
--- NOTE | 2024-08-30 23:42 | NUR.NOTE ---
PT drank 10oz of water and is not nauseous. Nursing Note:
[2024-08-30 23:43] LABS: NT-proBNP 1198 pg/mL (<300)
[2024-08-30 23:48] LABS: D-Dimer > 7500 ng/mlFEU (<500)
[2024-08-31] VITALS (45 sets, daily range): BP systolic 82–145; BP diastolic 44–93; PULSE 57–87; RESP 11–28; TEMP 35.7–37; O2SAT 88–98
[2024-08-31 00:26] LABS: Troponin I 12 ng/L (<or=51)
--- NOTE | 2024-08-31 00:48 | DI.VRAD_ITS ---
PROCEDURE INFORMATION: Exam: CT Chest Without Contrast; Diagnostic Exam date and time: 08/30/2024 11:31 PM Age: 73 years old Clinical indication: Other: Hypoxia TECHNIQUE: Imaging protocol: Diagnostic computed tomography of the chest without contrast. 3D rendering (Not supervised by radiologist): MIP and/or 3D reconstructed images were created by the technologist. Radiation optimization: All CT scans at this facility use at least one of these dose optimization techniques: automated exposure control; mA and/or kV adjustment per patient size (includes targeted exams where dose is matched to clinical indication); or iterative reconstruction. COMPARISON: CT CHEST/ABD/PEL WO 06/30/2022 10:34 AM FINDINGS: Lungs: Moderate centrilobular emphysema, with chronic obstructive pulmonary physiologic changes. Minimal bibasilar atelectasis or scarring. No focal consolidations or pulmonary edema. Pleural spaces: Normal. Heart: Mild biventricular chamber enlargement. Calcification of the mitral valve and aortic valve annulus. Decreased attenuation of the intracardiac blood pool, with visualization of the interventricular septum, suggesting anemia. Coronary arteries: Atherosclerotic calcification of the left anterior descending and right coronary arteries. Lymph nodes: No enlarged lymph nodes. Vasculature: Atherosclerotic calcification of the thoracic aorta. Metallic stent within the distal thoracic aorta, extending into the visualized upper abdominal aorta. Metallic stent within the superior mesenteric artery. Bones/joints: Multilevel thoracic spine degenerative disc space narrowing and osteophyte formation. Soft tissues: Normal. IMPRESSION: 1. No acute thoracic abnormality. 2. Other (less critical/noncritical/incidental) findings as above; please refer to the body of report for further details. Dictated and Authenticated by: Rakesh Jones MD. Orderin Jeanette Chen MD
--- NOTE | 2024-08-31 01:12 | HPE_ITS ---
Date of service: 08/31/24 Time of Service: 01:12 Assessment and Plan Assessment and plan (1) Syncope: Start date: 08/31/24 Status: Acute Assessment and plan: This is a 73-year-old lady who had a syncopal episode at home after acute episode of emesis. This may have been vasovagal but she does have a history of cardiomyopathy and was hypoxic in the ED with no explanation for her hypoxemia. CT of the chest was negative for infiltrates as was the chest x-ray. CT of the head was negative for any acute bleeds. He is not on any anticoagulations but does take a baby aspirin. Her troponins are negative but she persists with hypoxemia and was admitted for telemetry and follow-up with VQ scan to rule out acute PE. Her D-dimer is chronically elevated and remained so. Echocardiogram will be updated as well with history of cardiomyopathy to assess left- ventricular ejection fraction and evaluate for RV strain. She is on Lovenox therapeutic dosing at 1 mg/kg twice daily until VQ scan can be assessed. She does have crackles in her lower bases though no evidence of pneumonia on imaging. This may be chronic. She is a full code. (2) Hypoxia: Start date: 08/31/24 Status: Acute Assessment and plan: Patient is usually not on oxygen and will have VQ scan to rule out PE and be watched closely for pneumonia with some lung findings. Wean off oxygen as allowed by pulse oximeter above 90%. She will be discharged on no oxygen supplementation. (3) UTI (urinary tract infection): Start date: 08/31/24 Status: Acute Assessment and plan: Patient had mild symptoms 2 days prior to admission this could be contributing to her acute illness. IV Rocephin and follow-up urine culture adjusting oral antibiotic therapy to results. (4) Hypomagnesemia: Start date: 08/31/24 Status: Acute Assessment and plan: Replete with IV magnesium as needed. Follow-up labs. This may be a consequence of patient's chronically being on furosemide. She does take potassium supplement. (5) Cardiomyopathy: Status: Chronic Assessment and plan: Continue outpatient medical regimen and follow-up echocardiogram with previous echocardiograms at [facility] revealing preserved left ventricular ejection fraction though the ED provider did find an echocardiogram with decreased ejection fraction in the 30% range. Troponin measurements were negative. (6) Hypertensive kidney disease with CKD stage IV: Status: Chronic Assessment and plan: Continue outpatient medical therapy. Patient does follow-up at [facility] [place]. She has an abdominal bruit with a history of renal artery bypass. She also has a AAA which has been stented. (7) CKD (chronic kidney disease) stage 4, GFR 15-29 ml/min: Status: Chronic Assessment and plan: This appears stable. Trend labs. (8) HTN (hypertension): Status: Chronic Assessment and plan: Continue outpatient medical therapy. (9) Hypothyroidism: Status: Chronic Assessment and plan: Continue thyroid replacement. TSH slightly elevated but free T4 is normal. History of Present Illness History of Present Illness Chief Complaint: Nausea vomiting syncopal episode at home Narrative: This is a 73-year-old female patient who lives at home with her and goes to [facility] [place] [place] with multiple medical problems including ischemic cardiomyopathy, renal stenosis with hypertension, hypothyroidism and irritable bowel syndrome. 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 She was on the phone with her daughter the day of admission when she had to hang up the phone abruptly and had a single episode of emesis. She then went to her bathroom and the stated that she was walking normally to the bathroom. Patient passed out in the bathroom and the stated that she was confused after the fall and had difficulty getting up on her own. Her brought her to the [facility] ED for evaluation. She has had syncope in the past when she was showering. She is severely allergic to IV dye with anaphylaxis and had a CT of the head without contrast as well as a CT of the chest without contrast with both showing no acute process. Her D-dimer was markedly elevated as it has been in the past and with no clear explanation of her acute hypoxemia, PE needs to be considered and ruled out. VBG did not show hypercapnia and patient could not be weaned off oxygen with no respiratory disease by history or oxygen supplement at home. Labs also revealed a UTI mild elevation of her WBC but no fever and no hypotension or evidence of sepsis with shock. She had had urinary frequency and urgency for the last 2 days prior to admission. She will be initiated on IV Rocephin. Urine culture will be followed up. She denies any fever or cough. The patient cannot tolerate IV contrast, she will have a VQ scan in the morning to rule out PE. Until then, Lovenox will be given at therapeutic dosing for PE, 1 mg/kg twice daily. She will be admitted for telemetry to rule out acute dysrhythmia as a cause of her syncopal episode though did have some elements of vasovagal occurring after her bout of emesis. Echocardiogram will be updated with her cardiomyopathy and to look for her RV strain. Her troponin levels were negative. She is a full code. Review of Systems Narrative: 13 point review of system otherwise unrevealing or stable. PFSH All Active Problems (Updated 08/31/24 @ 02:58 by Regan Monteiro) UTI (urinary tract infection) (Acute) Hypomagnesemia (Acute) HTN (hypertension) (Chronic) Hypoxia (Acute) Syncope (Acute) Normochromic normocytic anemia (Acute ~02/2024) Irritable bowel syndrome with both constipation and diarrhea (Acute ~11/2023) [facility] [place] GI-12/08/23 Middle insomnia (Chronic) RX Trazodone Steatorrhea (Acute) Pararenal abdominal aortic aneurysm (AAA) without rupture (Acute) [facility] [place] Vascular 06/24/23 Hypertensive kidney disease with CKD stage IV (Chronic ~01/2021) 06/25/21 [facility] [place] Nephrology note Asymmetrical sensorineural hearing loss (Chronic ~2018) Cervical spondylosis (Acute 08/24/07) 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 Hep B in 2012 Osteopenia (Acute 11/18/12) DEXA 10/2012; T -1.2 at hip DEXA 05/02/14; T -2.0 hip Renal artery stenosis (Chronic ~2018) (R) > (L) (R) YING bypass graft 09/12 Hypothyroidism (Chronic) Gastro-esophageal reflux disease without esophagitis (Chronic ~11/2018) EGD @ [facility] [place] 12/16/18 CKD (chronic kidney disease) stage 4, GFR 15-29 ml/min (Chronic) G4/A3; [facility] [place] Nephro Cardiomyopathy (Chronic ~2019) Cardiology LVEF 59% on 06/16; 55-60% 01/2022 ECHO Chronic diarrhea (Chronic ~2019) Secondary hyperparathyroidism (Chronic) CKD Syncope (Acute ~01/2022) Presumed orthostasis B12 deficiency (Chronic) Medical History (Updated 08/31/24 @ 02:58 by Regan Monteiro) Biceps tendinitis of right shoulder Right clavicle fracture (~06/30/22) AMS (altered mental status) Transient neurologic deficit Shingles BCC (basal cell carcinoma), face (07/05/20) 05/14/20 right nasal ala- shave biopsy. Basal Cell Ca, moved to hx and BCC to problem list. Neoplasm 05/14/20 right nasal ala- shave biopsy. Basal Cell Ca, moved to hx and BCC to problem list. 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 3.7cm 01/04/16- ultrasound 3.2 cm 01/04/16-Abd US 3.2 cm diameter 07/2015 - 3.5 cm rechecked 01/01/18 note 04/18/20 substantial increase in last 6 mos, CTA ordered Hepatitis B (02/24/13) Dr Watt [facility] [place] Pt. states she revieved treatment Surgical History History of aortic aneurysm repair Vascular surgery Posterior subcapsular age-related cataract, right eye Nuclear sclerotic cataract of right eye Posterior subcapsular age-related cataract of left eye Nuclear sclerotic cataract of left eye History of intestinal surgery History of AAA (abdominal aortic aneurysm) repair (~10/01/21) 10/01/21 [facility] [place] Vascular Status post Mohs surgery (07/05/20) right nasal ala for BCC S/P exploratory laparotomy (~03/2020) 04/24/20 [facility] [place] with lysis of adhesions Status post surgery (09/07/18) right external iliac to right renal artery bypass with reversed rifht greater saphenous vein, [facility] [place] Hysterectomy, Laproscopic (~03/1984) EGD W/ BS (08/12/12) DR CANCHOLA Colonoscopy - MAC (09/27/12) DR CANCHOLA, REPEAT 10 YRS. Bilateral salpingectomy with oophorectomy Family History Grandmother Essential hypertension Mother , age 68 of ovarian cancer Ovarian cancer Father , age 60 of emphysema Emphysema lung Smoker Sister Essential hypertension Brother , age 34 of suicide Suicide Son No problems noted. Daughter No problems noted. Other Abdominal aortic aneurysm (AAA) without rupture Social History Smoking/Tobacco Use Status: Former Tobacco Use Quit Date: 04/27/08 Tobacco: How many years used: 45 Smoking risk assessment performed?: Yes Alcohol Intake: current Alcohol Intake frequency: holidays/special occasions only Alcohol type: wine Drug use: Never Substance use type: does not use Caregiver/Support person: Yes Foster care: No Household members: spouse Housing: house Number of Children: 2 number of grandchildren: 3 Communication Needs: Corrective Lenses Education Level: college Do you need help understanding health information?: Rarely 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, 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 Pets and animals: Yes Current gender identity: female What is your relationship status?: How often do you talk on the phone with friends or family?: three or more times per week How often do you get together with friends or relatives?: once per week Panel score (0-1 are the most socially isolated patients): 2 What type of physical activity do you participate in: none Special yanira needs: No Agree to transfusion: Yes Seatbelt use: always Drive intox or ride w/intox after school driver: No Working smoke detector in home: Yes Fire extinguisher in home: Yes Carbon monox detector in home: Yes Do you feel safe at home: Yes Do you feel safe in your relationship?: Yes Meds Allergies and Home Medications Allergies Allergy/AdvReac Type Severity Reaction Status Date / Time Iodinated Contrast Media Allergy Severe Anaphylaxis Verified 08/30/24 21:22 shellfish derived Allergy Mild Upset Verified 08/30/24 21:22 stomach Home Medications ?Medication ?Instructions ?Recorded ?Confirmed ?Type aspirin 81 mg tablet,delayed 81 mg PO DAILY 04/19/13 08/30/24 History release (Aspir-) potassium chloride 20 mEq 20 meq PO DAILY 08/06/22 08/30/24 History tablet,extended release(part/cryst) (Klor-Con M) hydralazine 25 mg tablet 25 mg PO TID #300 tabs 06/11/23 08/30/24 Rx isosorbide dinitrate 20 mg tablet 20 mg PO TID #300 tabs 06/11/23 08/30/24 Rx mecobalamin (vitamin B12) 1,000 1,000 mcg PO DAILY #90 tabs 06/22/23 08/30/24 Rx mcg chewable tablet trazodone 300 mg tablet 150 - 300 mg (0.5 - 1 x 300 mg) PO 08/20/23 08/30/24 Rx QHS sleep #90 tabs loperamide 2 mg capsule See Rx Instructions PO DAILY PRN 03/17/24 08/30/24 Rx diarrhea #135 caps melatonin 10 mg capsule 10 mg PO HS PRN 03/17/24 08/30/24 History carvedilol 12.5 mg tablet See Rx Instructions .Route 04/14/24 08/30/24 Rx .COMPLEX #180 tabs atorvastatin 20 mg tablet See Rx Instructions .Route 06/08/24 08/30/24 Rx .COMPLEX #90 tabs furosemide 20 mg tablet See Rx Instructions .Route 08/15/24 08/30/24 Rx .COMPLEX #180 tabs amlodipine 5 mg tablet See Rx Instructions .Route 08/25/24 08/30/24 Rx .COMPLEX #90 tabs colestipol 1 gram tablet 1 g PO BID 08/25/24 08/30/24 History gabapentin 300 mg capsule 300 mg PO BID leg pain #180 caps 08/25/24 08/30/24 Rx levothyroxine 50 mcg tablet See Rx Instructions .Route 08/25/24 08/30/24 Rx .COMPLEX #90 tabs Exam Narrative Exam Narrative: General: Patient is thin, darkly tanned, alert and oriented x 3 and in no acute distress. HEENT: Normocephalic, eyes with pupils equal and light symmetrically, extraocular movement intact and sclera anicteric. Oropharynx with fair dentition and slightly dry mucosa. Neck: Supple without JVD. Back: Stooped posture without CVA tenderness. Lungs: Coarse crackles both bases with decreased aeration, no focalizing rales. Bronchovesicular breath sounds diffusely. Fair aeration. No expiratory wheeze with normal expiratory phase. Breast: Exam deferred. Heart: Regular rate and rhythm with no murmurs or gallops appreciated. Abdomen: Scaphoid contour, soft nontender to palpation with no palpable hepatosplenomegaly. Abdominal bruit auscultated over the mid abdomen. Positive all quadrants. Genitalia/rectal: Exam deferred. Extremities: Without clubbing, cyanosis or pitting edema. Negative Homans' sign. Skin: Darkly tanned, otherwise normal color with actinic changes over sun exposed areas. Rough texture. Decreased turgor. Warm and dry. Slight bruising over the left face. Neuro: Cranial nerves II through XII gross intact, no focalizing motor deficits. No tremor. Psych: Normal affect and mood. No abnormal thought processes. Remote and recent memory grossly intact. Results Imaging Imaging Studies: Exam: CT Chest Without Contrast; Diagnostic Exam date and time: 08/30/2024 11:31 PM Age: 73 years old Clinical indication: Other: Hypoxia COMPARISON: CT CHEST/ABD/PEL WO 06/30/2022 10:34 AM FINDINGS: Lungs: Moderate centrilobular emphysema, with chronic obstructive pulmonary physiologic changes. Minimal bibasilar atelectasis or scarring. No focal consolidations or pulmonary edema. Pleural spaces: Normal. Heart: Mild biventricular chamber enlargement. Calcification of the mitral valve and aortic valve annulus. Decreased attenuation of the intracardiac blood pool, with visualization of the interventricular septum, suggesting anemia. Coronary arteries: Atherosclerotic calcification of the left anterior descending and right coronary arteries. Lymph nodes: No enlarged lymph nodes. Vasculature: Atherosclerotic calcification of the thoracic aorta. Metallic stent within the distal thoracic aorta, extending into the visualized upper abdominal aorta. Metallic stent within the superior mesenteric artery. Bones/joints: Multilevel thoracic spine degenerative disc space narrowing and osteophyte formation. Soft tissues: Normal. IMPRESSION: 1. No acute thoracic abnormality. 2. Other (less critical/noncritical/incidental) findings as above; please refer to the body of report for further details. Exam: XR Chest Exam date and time: 08/30/2024 10:57 PM Age: 73 years old Clinical indication: Other: Syncope; Prior surgery; Surgery date: 6+ months; Surgery type: Aortic stent TECHNIQUE: Imaging protocol: Radiologic exam of the chest. Views: 1 view. COMPARISON: CT CHEST/ABD/PEL WO 06/30/2022 10:34 AM FINDINGS: Lungs: Calcified granuloma within the periphery of the right upper lobe. Minimal bibasilar atelectasis or scarring. No focal consolidations or pulmonary edema. Pleural spaces: Normal. Heart/Mediastinum: Normal. Vasculature: Partially visualized metallic stent within the visualized distal thoracic aorta and upper abdominal aorta. Atherosclerotic vascular disease. Bones/joints: No acute abnormality. IMPRESSION: No acute cardiopulmonary abnormality. Exam: CT Head Without Contrast Exam date and time: 08/30/2024 10:04 PM Age: 73 years old Clinical indication: Stroke-like symptoms; Altered mental status/memory loss TECHNIQUE: Imaging protocol: Computed tomography of the head without contrast. Other technique: STROKE PROTOCOL was implemented. COMPARISON: CT HEAD WO 06/30/2022 10:31 AM FINDINGS: Brain: Old lacunar infarction within the right caudate head nucleus. Periventricular and subcortical white matter areas of hypoattenuation, likely chronic small vessel ischemic change, demyelination, or gliosis. No intracranial mass, acute hemorrhage, or acute infarction. Cerebral ventricles: No ventriculomegaly. Paranasal sinuses: Minimal ethmoid sinus disease. Mastoid air cells: Normal as visualized. Bones: Unremarkable. No acute fracture. Soft tissues: Unremarkable. Vasculature: Atherosclerotic vascular disease. IMPRESSION: No acute intracranial abnormality. Labs 08/30/24 21:50 08/30/24 21:50 Labs: Laboratory Results - last 24 hr 08/30/24 08/30/24 08/30/24 21:50 21:55 22:32 WBC 11.92 H RBC 3.89 L Hgb 10.7 L Hct 31.9 L MCV 82 MCH 27.5 MCHC 33.5 RDW 15.8 H Plt Count 173 MPV 9.8 Immature Gran % 0.8 Neutrophils % 84.1 Lymphocytes % 3.2 Monocytes % 10.2 Eosinophils % 1.4 Basophils % 0.3 Nucleated RBC % 0.0 Absolute Neutrophils 10.02 H Absolute Lymphocytes 0.38 L Absolute Monocytes 1.22 H Absolute Eosinophils 0.17 Absolute Basophils 0.04 PT 11.4 H INR 1.1 D-Dimer > 7500 H VBG pH 7.47 H VBG pCO2 31 L VBG pO2 44 VBG HCO3 23 VBG Total CO2 21 L VBG O2 Saturation 81 VBG Base Excess -1 VBG Lactate 0.6 Sodium 134 L Potassium 4.0 Chloride 99 Carbon Dioxide 26.0 Anion Gap 9.0 BUN 26 H Creatinine 2.3 H Est GFR (CKD-EPI 2020) 21.62 Glucose 115 H Calcium 8.6 Magnesium 1.5 L Total Bilirubin 0.6 AST 24 ALT 14 Alkaline Phosphatase 77 Ammonia 16 Troponin I 10 12 NT-Pro-B Natriuret Pep 1198 H Total Protein 7.2 Albumin 3.3 L Lipase 17 TSH 4.54 H Free T4 1.14 Ethyl Alcohol < 3.0 08/31/24 00:02 WBC RBC Hgb Hct MCV MCH MCHC RDW Plt Count MPV Immature Gran % Neutrophils % Lymphocytes % Monocytes % Eosinophils % Basophils % Nucleated RBC % Absolute Neutrophils Absolute Lymphocytes Absolute Monocytes Absolute Eosinophils Absolute Basophils PT INR D-Dimer VBG pH VBG pCO2 VBG pO2 VBG HCO3 VBG Total CO2 VBG O2 Saturation VBG Base Excess VBG Lactate Sodium Potassium Chloride Carbon Dioxide Anion Gap BUN Creatinine Est GFR (CKD-EPI 2020) Glucose Calcium Magnesium Total Bilirubin AST ALT Alkaline Phosphatase Ammonia Troponin I 12 NT-Pro-B Natriuret Pep Total Protein Albumin Lipase TSH Free T4 Ethyl Alcohol Last Vital Signs Temp 36.9 C 08/30/24 21:16 Pulse 79 08/31/24 01:01 Resp 16 08/31/24 01:01 BP 137/52 L 08/31/24 01:00 Pulse Ox 94 08/31/24 01:01 Time Spent Time spent with Patient: >75 minutes Time was spent: preparing to see the patient(eg.review tests), obtaining and/or reviewing separately otained hiistory, ordering medications,tests, procedures, indepentently interpreting results, counseling the patient and care coordination
[2024-08-31 01:35] LABS: Bilirubin Negative (Negative); Blood Negative (Negative); Clarity Sl Cloudy (Clear); Glucose Negative (Negative); Ketones Negative (Negative); Leukocyte Esterase Moderate (Negative); Nitrite Positive (Negative); Urobilinogen 0.2 mg/dL (Up to 0.2); pH 5.5 (5-8)
[2024-08-31 01:43] LABS: Bacteria Many HPF (Negative); C & S Indicated? Yes; Casts Negative LPF (Negative); Crystals Negative HPF (Negative); Epithelial Cells Few HPF (Negative); Mucus Trace (Negative); RBC 0-2 HPF (0-2); WBC >50 HPF (0-5)
[2024-08-31 01:48] LABS: *AMPHETAMINES SCREEN URINE Negative (Negative); *BARBITURATES SCREEN URINE Negative (Negative); *BENZODIAZEPINES SCREEN URINE Negative (Negative); Cannabinoids THC Negative (Negative); Cocaine Screen,Urine Negative (Negative); METHADONE URINE SCREEN Negative (Negative); OPIATES URINE SCREEN Negative (Negative)
[2024-08-31 01:53] LABS: Tricyclic Antidepressants Negative (Negative)
--- NOTE | 2024-08-31 03:28 | W.PC.ACHO ---
Registration Status: Primary Language: Preferred Language: ED Information & Data Chief Complaint [id number] 08/30/24 23:36 Triage Note Pt has had diarrhea, shakes, 08/30/24 21:16 and vomiting. Threw up brown like a bowel movement. Reported had shaking, felt weak, and is feeling cold. Went to bathroom, blacked out, and hit the floor. Hit left side of face. Medical / Surgical History (Last Updated 08/31/24 @ 01:41 by Regan Monteiro) Biceps tendinitis of right shoulder Right clavicle fracture (~06/30/22) AMS (altered mental status) Transient neurologic deficit Shingles BCC (basal cell carcinoma), face (07/05/20) Neoplasm Acute on chronic systolic (congestive) heart failure Pre-transplant evaluation for CKD (chronic kidney disease) (~05/2019) Acute kidney injury superimposed on chronic kidney disease Hypertensive emergency 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 Shoulder pain (08/24/07) Hypoxia Acute respiratory failure with hypoxia Acute and chronic respiratory failure with hypoxia Creatinine elevation 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) Leg cramps (12/22/17) Abdominal aortic aneurysm (AAA) without rupture (01/04/16) Hepatitis B (02/24/13) (Last Reviewed 08/31/24 @ 01:32 by Regan Monteiro) History of aortic aneurysm repair Posterior subcapsular age-related cataract, right eye Nuclear sclerotic cataract of right eye Posterior subcapsular age-related cataract of left eye Nuclear sclerotic cataract of left eye History of intestinal surgery History of AAA (abdominal aortic aneurysm) repair (~10/01/21) Status post Mohs surgery (07/05/20) S/P exploratory laparotomy (~03/2020) Status post surgery (09/07/18) Hysterectomy, Laproscopic (~03/1984) EGD W/ BS (08/12/12) Colonoscopy - MAC (09/27/12) Bilateral salpingectomy with oophorectomy Most Recent Vital Signs Temperature 36.9 C 08/30/24 21:16 Temperature Source Oral 08/30/24 21:16 Pulse 71 08/31/24 03:10 Pulse 69 08/31/24 03:10 Respiratory Rate 12 08/31/24 03:10 Respiratory Effort Normal 08/30/24 22:19 Respiratory Depth Normal 08/30/24 22:19 Blood Pressure 135/53 L 08/31/24 03:00 Blood Pressure Mean 78 08/31/24 03:00 Blood Pressure Position Sitting 08/30/24 21:16 Pulse Oximetry 97 08/31/24 03:10 Oxygen Delivery Method Room Air 08/30/24 21:16 Oxygen Flow Rate 0 08/30/24 21:16 Pain Level 0 08/30/24 21:16 Comment PT put on 2 L NC 08/30/24 22:50 Allergies Iodinated Contrast Media Allergy (Severe, Verified 08/30/24 21:22) Anaphylaxis shellfish derived Allergy (Mild, Verified 08/30/24 21:22) Upset stomach She avoids it - aidee the smell of fish IV IV Catheter Type [Left Saline Lock Antecubital] IV Catheter Gauge [Left 18 Antecubital] Diagnostics 08/31/24 08/31/24 08/31/24 Range/Units 02:45 01:25 00:02 WBC (4.4-10.8) 10^3/uL RBC (3.93-5.22) 10^6/uL Hgb (11.2-15.7) g/dL Hct (36.0-46.0) % MCV (80-95) fL MCH (27.0-33.0) pg MCHC (32.0-36.0) % RDW (11.7-14.6) % Plt Count (130-400) 10^3/uL MPV (8.0-11.0) fL Immature Gran % % Neutrophils % % Lymphocytes % % Monocytes % % Eosinophils % % Basophils % % Nucleated RBC % (0.0-0.3) % Absolute Neutrophils (1.2-6.7) 10^3/uL Absolute Lymphocytes (1.2-3.4) 10^3/uL Absolute Monocytes (0.1-0.8) 10^3/uL Absolute Eosinophils (0.0-0.7) 10^3/uL Absolute Basophils (0.0-0.2) 10^3/uL PT (9.1-11.1) sec INR (0.9-1.1) D-Dimer (<500) ng/mlFEU VBG pH (7.31-7.41) VBG pCO2 (41-51) mmHg VBG pO2 mmHg VBG HCO3 (23-28) mmol/L VBG Total CO2 (24-29) mmol/L VBG O2 Saturation % VBG Base Excess (-2-3) mmol/L VBG Lactate (<or=2.0) mmol/L Sodium (136-145) mmol/L Potassium (3.5-5.1) mmol/L Chloride (98-107) mmol/L Carbon Dioxide (21.0-32.0) mmol/L Anion Gap (3-11) mmol/L BUN (7-18) mg/dL Creatinine (0.55-1.02) mg/dL Est GFR (CKD-EPI 2020) (mL/min/1.73m2) Glucose (74-106) mg/dL Calcium (8.5-10.1) mg/dL Magnesium (1.8-2.4) mg/dL Total Bilirubin (0.2-1.0) mg/dL AST (15-37) U/L ALT (14-59) U/L Alkaline Phosphatase (46-116) U/L Ammonia (11-32) umol/L Troponin I 12 (<or=51) ng/L NT-Pro-B Natriuret Pep (<300) pg/mL Total Protein (6.4-8.2) g/dL Albumin (3.4-5.0) g/dL Lipase (<78) U/L TSH (0.36-3.74) uIU/mL Free T4 (0.76-1.46) ng/dL Urine Color Yellow (Yellow) Urine Clarity Sl Cloudy (Clear) Urine pH 5.5 (5-8) Ur Specific [place] 1.010 (1.005-1.025) Urine Protein 100 H (Neg-Trace) mg/dL Urine Ketones Negative (Negative) mg/dL Urine Blood Negative (Negative) Urine Nitrite Positive H (Negative) Urine Bilirubin Negative (Negative) Urine Urobilinogen 0.2 (Up to 0.2) mg/dL Ur Leukocyte Esterase Moderate H (Negative) Urine RBC 0-2 (0-2) HPF Urine WBC >50 H (0-5) HPF Ur Epithelial Cells Few (Negative) HPF Urine Crystals Negative (Negative) HPF Urine Bacteria Many (Negative) HPF Urine Casts Negative (Negative) LPF Urine Mucus Trace (Negative) Ur Culture Indicated? Yes Urine Glucose Negative (Negative) mg/dL Urine Opiates Screen Negative (Negative) Urine Methadone Screen Negative (Negative) Ur Barbiturates Screen Negative (Negative) Ur Tricyclics Screen Negative (Negative) Ur Amphetamines Screen Negative (Negative) U Benzodiazepines Scrn Negative (Negative) Urine Cocaine Screen Negative (Negative) Ur THC Screen Negative (Negative) Ethyl Alcohol (<10) mg/dL COVID-19 Source Pending SARS-CoV-2 (PCR) Pending Influenza Type A (PCR) Pending Influenza Type B (PCR) Pending RSV (PCR) Pending 08/30/24 08/30/24 08/30/24 Range/Units 22:32 21:55 21:50 WBC 11.92 H (4.4-10.8) 10^3/uL RBC 3.89 L (3.93-5.22) 10^6/uL Hgb 10.7 L (11.2-15.7) g/dL Hct 31.9 L (36.0-46.0) % MCV 82 (80-95) fL MCH 27.5 (27.0-33.0) pg MCHC 33.5 (32.0-36.0) % RDW 15.8 H (11.7-14.6) % Plt Count 173 (130-400) 10^3/uL MPV 9.8 (8.0-11.0) fL Immature Gran % 0.8 % Neutrophils % 84.1 % Lymphocytes % 3.2 % Monocytes % 10.2 % Eosinophils % 1.4 % Basophils % 0.3 % Nucleated RBC % 0.0 (0.0-0.3) % Absolute Neutrophils 10.02 H (1.2-6.7) 10^3/uL Absolute Lymphocytes 0.38 L (1.2-3.4) 10^3/uL Absolute Monocytes 1.22 H (0.1-0.8) 10^3/uL Absolute Eosinophils 0.17 (0.0-0.7) 10^3/uL Absolute Basophils 0.04 (0.0-0.2) 10^3/uL PT 11.4 H (9.1-11.1) sec INR 1.1 (0.9-1.1) D-Dimer > 7500 H (<500) ng/mlFEU VBG pH 7.47 H (7.31-7.41) VBG pCO2 31 L (41-51) mmHg VBG pO2 44 mmHg VBG HCO3 23 (23-28) mmol/L VBG Total CO2 21 L (24-29) mmol/L VBG O2 Saturation 81 % VBG Base Excess -1 (-2-3) mmol/L VBG Lactate 0.6 (<or=2.0) mmol/L Sodium 134 L (136-145) mmol/L Potassium 4.0 (3.5-5.1) mmol/L Chloride 99 (98-107) mmol/L Carbon Dioxide 26.0 (21.0-32.0) mmol/L Anion Gap 9.0 (3-11) mmol/L BUN 26 H (7-18) mg/dL Creatinine 2.3 H (0.55-1.02) mg/dL Est GFR (CKD-EPI 2020) 21.62 (mL/min/1.73m2) Glucose 115 H (74-106) mg/dL Calcium 8.6 (8.5-10.1) mg/dL Magnesium 1.5 L (1.8-2.4) mg/dL Total Bilirubin 0.6 (0.2-1.0) mg/dL AST 24 (15-37) U/L ALT 14 (14-59) U/L Alkaline Phosphatase 77 (46-116) U/L Ammonia 16 (11-32) umol/L Troponin I 12 10 (<or=51) ng/L NT-Pro-B Natriuret Pep 1198 H (<300) pg/mL Total Protein 7.2 (6.4-8.2) g/dL Albumin 3.3 L (3.4-5.0) g/dL Lipase 17 (<78) U/L TSH 4.54 H (0.36-3.74) uIU/mL Free T4 1.14 (0.76-1.46) ng/dL Urine Color (Yellow) Urine Clarity (Clear) Urine pH (5-8) Ur Specific [place] (1.005-1.025) Urine Protein (Neg-Trace) mg/dL Urine Ketones (Negative) mg/dL Urine Blood (Negative) Urine Nitrite (Negative) Urine Bilirubin (Negative) Urine Urobilinogen (Up to 0.2) mg/dL Ur Leukocyte Esterase (Negative) Urine RBC (0-2) HPF Urine WBC (0-5) HPF Ur Epithelial Cells (Negative) HPF Urine Crystals (Negative) HPF Urine Bacteria (Negative) HPF Urine Casts (Negative) LPF Urine Mucus (Negative) Ur Culture Indicated? Urine Glucose (Negative) mg/dL Urine Opiates Screen (Negative) Urine Methadone Screen (Negative) Ur Barbiturates Screen (Negative) Ur Tricyclics Screen (Negative) Ur Amphetamines Screen (Negative) U Benzodiazepines Scrn (Negative) Urine Cocaine Screen (Negative) Ur THC Screen (Negative) Ethyl Alcohol < 3.0 (<10) mg/dL COVID-19 Source SARS-CoV-2 (PCR) Influenza Type A (PCR) Influenza Type B (PCR) RSV (PCR) 08/31/24 01:25 Urine Culture - Pending Urine - Reflex from Ua Intake and Output - 24 Hour Total 08/30/24 21:13 thru 08/30/24 23:20 Intake Total 50 Balance 50 Weight 44.452 kg Intake: IV 50 Falls Risk Assessment History of Falls Admit Due to Fall 08/30/24 22:19 Contributing Factors Confusion 08/30/24 22:19 Ambulatory Aids Independent 08/30/24 22:19 Tubes/Lines None 08/30/24 22:19 Gait Evaluation No gait disturbance 08/30/24 22:19 Cognition Cognitive impairment 08/30/24 22:19 Fall Total Score 43 08/30/24 22:19 Level of Risk Moderate Risk 08/30/24 22:19 Problems (Last Updated 08/31/24 @ 01:41 by Regan Monteiro) UTI (urinary tract infection) (Acute) Hypomagnesemia (Acute) HTN (hypertension) (Chronic) Hypoxia (Acute) Syncope (Acute) Hypertensive kidney disease with CKD stage IV (Chronic ~01/2021) Hypothyroidism (Chronic) CKD (chronic kidney disease) stage 4, GFR 15-29 ml/min (Chronic) Cardiomyopathy (Chronic ~2019) Notes 08/30/24 23:42 Nursing Notes by Ronny Landrum PT drank 10oz of water and is not nauseous. Nursing Note: Initialized on 08/30/24 23:42 - END OF NOTE v v v v v v v v v Sending and/or Receiving Nurses: Please use comment section below to note any information pertinent to the patient hand-off not included above. Information / Comments: Pt came in after syncopal episode and vomiting at home. Pt jaundice in color with negative bilirubin. UTI+, A &O x3, Mg repleted in ED with 2G, Zofran given per MAR. Pt currently on 2L NC; manuel PRAKASH. Report received from: Ronny Landrum RN
[2024-08-31 04:07] LABS: COVID-19 PCR Negative (Negative); Influenza A PCR Negative (Negative); Influenza B PCR Negative (Negative); RSV PCR Negative (Negative)
[2024-08-31] MEDS: cefTRIAXone 1 GM/50 ML BAG IVPB ×2 (04:14→23:15)
[2024-08-31 04:26] LABS: Source Nasopharynx
[2024-08-31] MEDS: Levothyroxine 50 MCG TAB PO (06:31)
--- NOTE | 2024-08-31 07:00 | DI.NM_ITS ---
Exam(s) NM LUNG SCAN VENT PERF GRP EXAM: NM LUNG SCAN VENT PERF GRP CLINICAL HISTORY: Acute hypoxemia with elevated D-dimer. TECHNIQUE: Injected Dose: Ventilation: 32 mCi Tc-99m DTPA via inhalation Perfusion: 4 mCi Tc-99m MAA via IV COMPARISON: CT CT CHEST WO from 08/30/2024 FINDINGS: Chest X-Ray: Clear lungs. Moderate emphysematous changes noted. Perfusion: Mild patchy perfusion. Ventilation:Extremely heterogeneous bilateral patchy perfusion, consistent with emphysematous changes . IMPRESSION: 1. Low probability VQ examination. Emphysematous changes. Modified PIOPED II criteria Probability Criteria High Two or more segments of V/Q mismatch Low Normal Perfusion, Non segmental perfusion abnormalitie s, pleural effusion in at least 1/3 of pleural cavity with no other defect Radiograph/perfusion matched defect in mid to upper lung confined to segment, one to three small segmental perfusion defects (<25% of segment) Perfusion defect smaller than corresponding radiogra phic lesion. Intermediate All other findings DATA REPOSITORY:
[2024-08-31 07:03] LABS: HCT 34.2 % (36.0-46.0); HGB 11.4 g/dL (11.2-15.7); MCH 27.5 pg (27.0-33.0); MCHC 33.3 % (32.0-36.0); MCV 83 fL (80-95); MPV 9.8 fL (8.0-11.0); Platelet Count 139 10^3/uL (130-400); RBC 4.14 10^6/uL (3.93-5.22); RDW 15.9 % (11.7-14.6); RDW-SD 47.6 fL; WBC 8.59 10^3/uL (4.4-10.8)
[2024-08-31 07:22] LABS: ALT 13 U/L (14-59); AST 25 U/L (15-37); Albumin 3.2 g/dL (3.4-5.0); Alkaline Phosphatase 119 U/L (46-116); Anion Gap 12.4 mmol/L (3-11); BUN 25 mg/dL (7-18); Bilirubin, Total 0.5 mg/dL (0.2-1.0); CO2 24.6 mmol/L (21.0-32.0); CREATININE 2.4 mg/dL (0.55-1.02); Calcium 8.7 mg/dL (8.5-10.1); Chloride 101 mmol/L (98-107); Estimated GFR 20.55 (mL/min/1.73m2); Glucose 94 mg/dL (74-106); Magnesium 2.5 mg/dL (1.8-2.4); Potassium 3.8 mmol/L (3.5-5.1); Sodium 138 mmol/L (136-145); Total Protein 7.2 g/dL (6.4-8.2)
[2024-08-31] MEDS: Ondansetron 4 MG/2 ML VIAL IVP (07:37)
[2024-08-31] MEDS: Normal Saline Flush 10 ML SYR IVP ×3 (07:37→23:15)
[2024-08-31] MEDS: Gabapentin 300 MG CAP PO ×2 (08:17→20:09)
[2024-08-31] MEDS: Isosorbide Dinitrate 10 MG TAB 20 MG PO ×3 (08:17→20:09)
[2024-08-31] MEDS: Enoxaparin 40 MG/0.4 ML SYR SC (08:17)
[2024-08-31] MEDS: Potassium Chloride 20 MEQ TABCR PO (08:17)
[2024-08-31] MEDS: hydrALAZINE 25 MG TAB PO (08:17)
[2024-08-31] MEDS: Carvedilol 12.5 MG TAB PO ×2 (08:17→16:25)
[2024-08-31] MEDS: amLODIPine 5 MG TAB PO (08:17)
[2024-08-31] MEDS: Furosemide 20 MG TAB PO ×2 (08:17→14:32)
[2024-08-31] MEDS: Aspirin E.C. 81 MG TABEC PO (08:17)
[2024-08-31] MEDS: Cyanocobalamin 500 MCG TAB 1000 MCG PO (08:18)
--- NOTE | 2024-08-31 08:26 | PDOC.CMIN ---
Date of service: 08/31/24 Time of Service: 08:26 Care Management Initial Assmt Initial Assessment Reason for Hospitalization: syncope Functional Status/Living Situation Patient Presentation: Charlene was sitting up in bed visiting with her Rodolfo when CM met with her. She was polite and agreeable to conversation. Charlene was admitted with syncope and a Uti. She remains hypotensive after the Observation period, and has a new oxygen requirement. Charlene lives in a single family home in [place] with her . They have 2 children; their daughter lives in [place] and their son lives in [place]. 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 She is independent at baseline and does not receive any services. Town of Residence: [place], [place] Resides with: Spouse ( Rodolfo) Significant Other/Family: Local (daughter the [facility], son in [place]) Employment Status: Retired Instrumental Activities of Daily Living (ADLs): Independent Medications Medication Management: No Issues/Barriers identified Advance Directives Advance Directives: Do you have an Advance Directive: Y 07/16/22 11:[address] [facility]: Y 07/16/22 11:44 Date Asked 03/09/24 03/09/24 15:39 AD Date Reviewed 08/30/24 08/30/24 21:[address] [facility] COLST Date Scanned Code Status Resuscitation Status Full Code Insurance Coverage/Financial Issues Insurance: Medicare /[facility] Care Team Visit Care Team Role Provider Type Angel Santiago MD MD [facility] STAFF PHYSICIAN Lexus Lawson NP Primary Care Provider NURSE PRACTITIONER [facility] Other Providers OTHER Richie Reid MD Emergency Provider [facility] STAFF PHYSICIAN Regan Monteiro Admit Provider NON-[facility] STAFF PHYSICIAN Attending Provider Discharge Potential Discharge Needs: PCP F/U Appt Anticipated Barriers to Discharge: None Identified Patient/Family Education Needs: Review discharge instructions, discuss Ask Me Three Transportation: Private vehicle Plan: Anticipate Charlene will be discharged home with no new services when medically cleared. She will follow up with her community providers and plan of care and transport with family. CM will follow and continue to asses for discharge needs. Social Determinants of Health Screening Social Determinants of health last assessed in clinic: 08/30/24 Will the Patient Participate in the Screening?: Declined to provide Do you worry about having a steady place to live?: no Problems where you live: no known problems In the past 12 months, have you had to go without electric, gas, oil or water in your home?: no Has lack of transportation kept you from medical appointments or from doing things needed for daily living?: no Has anyone in your life made you feel unsafe or unsupported?: no How hard is it for you to pay for the very basics like food, housing, medical care, and heating? Would you say it is:: Not hard at all Do you want help finding or keeping work or a job?: I do not need or want help If for any reason you need help with day-to-day activities such as bathing, preparing meals, shopping, managing finances, etc., do you get the help you need?: I don?t need any help How often do you feel lonely or isolated from those around you?: Never Do you speak a language other than Niuean at home?: No Does the patient want assistance with any of the above?: No PFSH All Active Problems (Updated 08/31/24 @ 02:58 by Regan Monteiro) UTI (urinary tract infection) (Acute) Hypomagnesemia (Acute) HTN (hypertension) (Chronic) Hypoxia (Acute) Syncope (Acute) Normochromic normocytic anemia (Acute ~02/2024) Irritable bowel syndrome with both constipation and diarrhea (Acute ~11/2023) [facility] [place] Middle insomnia (Chronic) RX Trazodone Steatorrhea (Acute) Pararenal abdominal aortic aneurysm (AAA) without rupture (Acute) [facility] [place] 06/24/23 Hypertensive kidney disease with CKD stage IV (Chronic ~01/2021) 06/25/21 [facility] [place] Asymmetrical sensorineural hearing loss (Chronic ~2018) Cervical spondylosis (Acute 08/24/07) 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 Hep B in 2012 Osteopenia (Acute 11/18/12) DEXA 10/2012; T -1.2 at hip DEXA 05/02/14; T -2.0 hip Renal artery stenosis (Chronic ~2018) (R) > (L) (R) YING bypass graft 09/12 Hypothyroidism (Chronic) Gastro-esophageal reflux disease without esophagitis (Chronic ~11/2018) [place] [facility] [place]18 CKD (chronic kidney disease) stage 4, GFR 15-29 ml/min (Chronic) G4/A3; [facility] [place] Cardiomyopathy (Chronic ~2019) Cardiology LVEF 59% on 06/16; 55-60% 01/2022 ECHO Chronic diarrhea (Chronic ~2019) Secondary hyperparathyroidism (Chronic) CKD Syncope (Acute ~01/2022) Presumed orthostasis B12 deficiency (Chronic) Medical History (Updated 08/31/24 @ 02:58 by Regan Monteiro) Biceps tendinitis of right shoulder Right clavicle fracture (~06/30/22) AMS (altered mental status) Transient neurologic deficit Shingles BCC (basal cell carcinoma), face (07/05/20) 05/14/20 right nasal ala- shave biopsy. Basal Cell Ca, moved to hx and BCC to problem list. Neoplasm 05/14/20 right nasal ala- shave biopsy. Basal Cell Ca, moved to hx and BCC to problem list. 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 3.7cm 01/04/16- ultrasound 3.2 cm 01/04/16-Abd US 3.2 cm diameter 07/2015 - 3.5 cm rechecked 01/01/18 note 04/18/20 substantial increase in last 6 mos, CTA ordered Hepatitis B (02/24/13) Dr Watt [facility] [place]. states she revieved treatment Surgical History History of aortic aneurysm repair Vascular surgery Posterior subcapsular age-related cataract, right eye Nuclear sclerotic cataract of right eye Posterior subcapsular age-related cataract of left eye Nuclear sclerotic cataract of left eye History of intestinal surgery History of AAA (abdominal aortic aneurysm) repair (~10/01/21) 10/01/21 [facility] [place] Status post Mohs surgery (07/05/20) right nasal ala for BCC S/P exploratory laparotomy (~03/2020) 04/24/20 [facility] with lysis of adhesions Status post surgery (09/07/18) right external iliac to right renal artery bypass with reversed rifht greater saphenous vein, [facility] Hysterectomy, Laproscopic (~03/1984) EGD W/ BS (08/12/12) DR CANCHOLA Colonoscopy - MAC (09/27/12) DR CANCHOLA, REPEAT 10 YRS. Bilateral salpingectomy with oophorectomy Family History Grandmother Essential hypertension Mother , age 68 of ovarian cancer Ovarian cancer Father , age 60 of emphysema Emphysema lung Smoker Sister Essential hypertension Brother , age 34 of suicide Suicide Son No problems noted. Daughter No problems noted. Other Abdominal aortic aneurysm (AAA) without rupture Social History Smoking/Tobacco Use Status: Former Tobacco Use Quit Date: 04/27/08 Tobacco: How many years used: 45 Smoking risk assessment performed?: Yes Alcohol Intake: current Alcohol Intake frequency: holidays/special occasions only Alcohol type: wine Drug use: Never Substance use type: does not use Caregiver/Support person: Yes Foster care: No Household members: spouse Housing: house Number of Children: 2 number of grandchildren: 3 Communication Needs: Corrective Lenses Education Level: college Do you need help understanding health information?: Rarely 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, 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 Pets and animals: Yes Current gender identity: female What is your relationship status?: How often do you talk on the phone with friends or family?: three or more times per week How often do you get together with friends or relatives?: once per week Panel score (0-1 are the most socially isolated patients): 2 What type of physical activity do you participate in: none Special yanira needs: No Agree to transfusion: Yes Seatbelt use: always Drive intox or ride w/intox racing car driver: No Working smoke detector in home: Yes Fire extinguisher in home: Yes Carbon monox detector in home: Yes Do you feel safe at home: Yes Do you feel safe in your relationship?: Yes
--- NOTE | 2024-08-31 08:38 | IN_ITS ---
PT Notes Visit Reasons: Syncope, Hypoxemia, UTI Physical Therapy Inpatient Initial Evaluation Date: 08/31/2024 Referring Doctor: Regan Monteiro MD PT Orders: PT CONSULT: D/C Non-PT dependent Precautions: Fall. Standard. Activity as tolerated. Patient Profile/Admitting Diagnosis: 73-year-old female admitted on 08/30/2024 for a syncopal episode that caused her to fall in the bathroom, vomiting, confusion, and generalized weakness. Patient is admitted for continued testing for and management of syncopal epsiode, hypoxia, UTI, hypomagnesemia, cardiomyopathy, hypertensive kidney disease stage 4, any hypothyroidism. PMHX: All Active Problems (Updated 08/31/24 @ 02:58 by Regan Monteiro) UTI (urinary tract infection) (Acute) Hypomagnesemia (Acute) HTN (hypertension) (Chronic) Hypoxia (Acute) Syncope (Acute) Normochromic normocytic anemia (Acute ~02/2024) Irritable bowel syndrome with both constipation and diarrhea (Acute ~11/2023) [facility] [place]Middle insomnia (Chronic) RX Trazodone Steatorrhea (Acute) Pararenal abdominal aortic aneurysm (AAA) without rupture (Acute) [facility] [place] [place]/24/23 Hypertensive kidney disease with CKD stage IV (Chronic ~01/2021) 06/25/21 [facility] [place] Asymmetrical sensorineural hearing loss (Chronic ~2018) Cervical spondylosis (Acute 08/24/07) 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 Hep B in 2012 Osteopenia (Acute 11/18/12) DEXA 10/2012; T -1.2 at hip DEXA 05/02/14; T -2.0 hip Renal artery stenosis (Chronic ~2018) (R) > (L) (R) YING bypass graft 09/12 Hypothyroidism (Chronic) Gastro-esophageal reflux disease without esophagitis (Chronic ~11/2018) E[place] [facility] [place]18 CKD (chronic kidney disease) stage 4, GFR 15-29 ml/min (Chronic) G4/A3; [facility] [place] Cardiomyopathy (Chronic ~2019) Cardiology LVEF 59% on 06/16; 55-60% 01/2022 ECHO Chronic diarrhea (Chronic ~2019) Secondary hyperparathyroidism (Chronic) CKD Syncope (Acute ~01/2022) 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 Basal Cell Ca, moved to hx and BCC to problem list. Neoplasm 05/14/20 right nasal ala- shave biopsy. Basal Cell Ca, moved to hx and BCC to problem list. 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 3.7cm 01/04/16- ultrasound 3.2 cm 01/04/16-Abd US 3.2 cm diameter 07/2015 - 3.5 cm rechecked 01/01/18 note 04/18/20 substantial increase in last 6 mos, CTA ordered Hepatitis B (02/24/13) Dr Watt [facility] [place]. states she revieved treatment Surgical History History of aortic aneurysm repair Vascular surgeryPosterior subcapsular age-related cataract, right eye Nuclear sclerotic cataract of right eye Posterior subcapsular age-related cataract of left eye Nuclear sclerotic cataract of left eye History of intestinal surgery History of AAA (abdominal aortic aneurysm) repair (~10/01/21) 10/01/21 [facility] [place] post Mohs surgery (07/05/20) right nasal ala for BCC S/P exploratory laparotomy (~03/2020) 04/24/20 [facility] with lysis of adhesions Status post surgery (09/07/18) right external iliac to right renal artery bypass with reversed rifht greater saphenous vein, [facility] [place]sterectomy, Laproscopic (~03/1984) EGD W/ BS (08/12/12) DR CANCHOLA Colonoscopy - MAC (09/27/12) DR CANCHOLA, REPEAT 10 YRS. Bilateral salpingectomy with oophorectomy Social History/Home Situation: Lives with in a private home with 3 steps to enter with rails on both sides; another flight of steps lead to the bedroom on the second floor. Walks about half a mile to a mile almost everyday. Independent with all aspects of ADLs prior to admission. Equipment Owned/DME: None Subjective: Denied headache, chest pain, and lightheadedness throughout session. Moderately short of breath after walking for just 40 feet and was unsteady by the time she needed to sit back down onto wheelchair. Objective: General Observation: resting in bed. IV through L antecubital area Mental Status: Alert and oriented as to person, place, time, and purpose. Able to pay attention, focus, and respond appropriately. Pain: None reported Vital Signs: BP down to 86/53 mmHg after short walk (see below under gait section) ROM: Right Upper Extremity: Shoulder Flexion WFL. Shoulder abduction WFL. Elbow flexion WFL. Wrist flexion WFL. Functional opening and closing of hand WFL. Left Upper Extremity: Shoulder Flexion WFL. Shoulder abduction WFL. Elbow flex ion WFL. Wrist flexion WFL. Functional opening and closing of hand WFL. Right Lower Extremity: Hip flexion WFL. Hip abduction WFL. Knee flexion WFL. Ankle dorsiflexion WFL. Ankle plantarflexion WFL. Left Lower Extremity: Hip flexion WFL. Hip abduction WFL. Knee flexion WFL. Ankle dorsiflexion WFL. Ankle plantarflexion WFL. Strength: Right Upper Extremity: Shoulder flexors 4-/5. Shoulder abductors 4-/5. Elbow flexors 4-/5. Elbow extensors 4-/5. Digital Campaign Specialist strong. Left Upper Extremity: Shoulder flexors 4-/5. Shoulder abductors 4-/5. Elbow flexors 4-/5. Elbow extensors 4-/5. Digital Campaign Specialist strong. Right Lower Extremity: Hip flexors 4-/5. Hip abductors 4-/5. Knee flexors 4-/5. Knee extensors 4-/5. Ankle dorsiflexors 4-/5. Ankle plantarflexors 4-/5. Left Lower Extremity: Hip flexors 4-/5. Hip abductors 4-/5. Knee flexors 4-/5. Knee extensors 4-/5. Ankle dorsiflexors 4-/5. Ankle plantarflexors 4-/5. Bed Mobility/Transfers: Minimal cueing provided for use of B hands as needed for support, movement sequence, AD management, and posture to reduce fall risk and minimize pain report Rolling supervision Supine to sit supervision Sit to supine supervision Sit to stand contact guard assist with FWW Stand to sit contact guard assist with FWW Bed to bedside commode contact guard assist with FWW Bedside commode to bed contact guard assist with FWW Bed to reclining chair with contact guard assist with FWW Reclining chair to bed with contact guard assist with FWW Gait: 30 feet without FWW but was moderately short of breath right after with BP of 86/53 mmHg via R antecubital area. Nurse Bairon updated right [facility] who took patient's manual BP with similar findings. Oxygen saturation ranged from 87% to 91% on 3 L/minute. Held off on attempting short walk with walker due to low BP. Stairs: Deferred Balance: Static Sitting: Normal Dynamic Sitting: Normal Static Standing: Fair Dynamic Standing: fair Special Tests: Mobility Limitations Standardized Measure [facility] AM-PAC 6 clicks Basic Mobility Inpatient Short Form: Raw Score: 18 CMS Score: 47% deficit 4-Stage balance Test: Feet together 10 seonds Semi-tandem <5 seconds Full tandem deferred One-legged stance deferred Informed Consent/Education: Patient was instructed in purpose of PT consult and plan of care. Agreeable to proceed with established PT POC to achieve personal goals. Assessment: Patient initially was unstable walking without a device and nearly lost balance when she turned around to sit onto wheelchair due to fatigue. SOB worsened with short walk despite being on 4 L of oxygen for the walk; recovered after about 23 minutes although SaO2 stayed at 87%-94% during the short walk. Patient presents with clinical signs and symptoms consistent with current/admitting diagnoses that have resulted to mobility limitations, gait instability, generalized weakness, and overall ADL decline as demonstrated by the following impairment level findings: 1. Decreased strength to B UE/LE major muscle groups 2. Impaired sitting/standing balance 3. Impaired activity tolerance 4. Moderate shortness of breath Impairments are contributing to the following functional limitations: 1. Decline in bed mobility skills 2. Decline in transfer skills 3. Difficulty with ambulation without assistive device and physical assistance 4. Increased completion time for mobility ADL performance 5. Increased risk for falls 6. Difficulty with managing steps alone safely Patient is assessed as a 13843 moderate complexity based on the following: History: 73-year-old female with past medical history as indicated above Examination: Demonstrable impairment in strength, balance, and mobility level with underlying impairments and functional limitations as exhibited above as well as deficit score of 47% utilizing the [facility] Mobility Inpatient Short Form Presentation: Evolving Decision Makin moderate complexity Goals: Goals X1 week 1. Supine-Sit independent 2. Sit-Supine independent 3. Sit-Stand independent 4. Stand-Sit independent with no device 5. Bed-Chair independent with no device 6. Chair-Bed independent with no device 7. Independent gait on level surface with use of no device for at least 300 feet without report of pain nor dyspnea 8. Independent stair negotiation while holding onto B rails for at least 13 steps without report of pain nor dyspnea 9. Independent with home exercise program 10. Good static and dynamic standing balance/tolerance Plan of Care/Treatment Plan: 1-2x/day, 7 days/week x 1 week. Plan of care has been reviewed with the HUMID SYSTEM OPERATOR providing the service under Physical Therapy direction. Initiate Physical Therapy intervention for pain management as needed, strengthening, bed mobility, transfers, gait, stairs, balance training, and use of assistive device. DISCHARGE RECOMMENDATIONS: [] Home with no services [] [X] Home with services. Patient will benefit from home health PT services in order to progress mobility level using least restrictive assistive ambulatory device, assess home safety, identify additional equipment needs, and establish a functional maintenance program that will increase ability of patient to remain at home. [] Home with outpatient PT [] [] SNF for continued rehabilitation [] [] Promotional Marketing Analyst Care [] [] SNF versus LTC based on ability to participate and progress [] [X] May need FWW on discharge which PT will fit and provide for patient TREATMENT CODE/TIME: 82451 x 20 minutes for 1 unit, 13993 x 12 minutes for 1 unit (8:38-9:20). Thank you for the opportunity to participate in the care of this patient. Viola Hou PT, DPT, CLT [facility], [place]
[2024-08-31] MEDS: Colestipol 1 GM TAB PO ×2 (09:20→23:15)
[2024-08-31] MEDS: Atorvastatin 20 MG TAB PO (20:09)
[2024-09-01 03:31] VITALS: BP 95/58; PULSE 55; RESP 17; TEMP 35.7; O2SAT 98
[2024-09-01] MEDS: Levothyroxine 50 MCG TAB PO (06:11)
[2024-09-01 06:17] VITALS: O2SAT 97
[2024-09-01 06:44] LABS: HCT 29.2 % (36.0-46.0); HGB 9.7 g/dL (11.2-15.7); MCH 27.2 pg (27.0-33.0); MCHC 33.2 % (32.0-36.0); MCV 82 fL (80-95); MPV 11.3 fL (8.0-11.0); Platelet Count 162 10^3/uL (130-400); RBC 3.57 10^6/uL (3.93-5.22); RDW 15.8 % (11.7-14.6); RDW-SD 46.9 fL
[2024-09-01 07:01] VITALS: BP 115/57; PULSE 56; RESP 16; TEMP 36.4; O2SAT 92
[2024-09-01 07:03] LABS: WBC 28.28 10^3/uL (4.4-10.8)
[2024-09-01 07:10] LABS: ALT 11 U/L (14-59); AST 19 U/L (15-37); Albumin 2.6 g/dL (3.4-5.0); Alkaline Phosphatase 81 U/L (46-116); Anion Gap 9.7 mmol/L (3-11); BUN 39 mg/dL (7-18); Bilirubin, Total 0.4 mg/dL (0.2-1.0); CO2 25.3 mmol/L (21.0-32.0); CREATININE 2.6 mg/dL (0.55-1.02); Calcium 8.7 mg/dL (8.5-10.1); Chloride 100 mmol/L (98-107); Estimated GFR 18.67 (mL/min/1.73m2); Glucose 132 mg/dL (74-106); Magnesium 2.6 mg/dL (1.8-2.4); Potassium 4.6 mmol/L (3.5-5.1); Sodium 135 mmol/L (136-145); Total Protein 6.4 g/dL (6.4-8.2)
[2024-09-01] MEDS: Enoxaparin 40 MG/0.4 ML SYR SC (08:19)
[2024-09-01] MEDS: Isosorbide Dinitrate 10 MG TAB 20 MG PO (08:20)
[2024-09-01] MEDS: Gabapentin 300 MG CAP PO (08:20)
[2024-09-01] MEDS: Aspirin E.C. 81 MG TABEC PO (08:20)
[2024-09-01] MEDS: Potassium Chloride 20 MEQ TABCR PO (08:20)
[2024-09-01] MEDS: Furosemide 20 MG TAB PO (08:21)
[2024-09-01] MEDS: Normal Saline Flush 10 ML SYR IVP (08:21)
[2024-09-01] MEDS: Cyanocobalamin 500 MCG TAB 1000 MCG PO (08:21)
[2024-09-01] MEDS: Carvedilol 12.5 MG TAB PO (08:21)
--- NOTE | 2024-09-01 09:19 | PDOC.CMPRO ---
Date of service: 09/01/24 Time of Service: 09:19 Care Management Progress Note Discharge Potential Discharge Needs: PCP F/U Appt Anticipated Barriers to Discharge: None Identified Patient/Family Education Needs: Review discharge instructions, discuss Ask Me Three Transportation: Private vehicle Plan: Anticipate Charlene will be discharged home with no new services when medically cleared. She will follow up with her community providers and plan of care and transport with family. CM will follow and continue to asses for discharge needs. Social Determinants of Health Screening Social Determinants of health last assessed in clinic: 08/30/24 Will the Patient Participate in the Screening?: Declined to provide Do you worry about having a steady place to live?: no Problems where you live: no known problems In the past 12 months, have you had to go without electric, gas, oil or water in your home?: no Has lack of transportation kept you from medical appointments or from doing things needed for daily living?: no Has anyone in your life made you feel unsafe or unsupported?: no How hard is it for you to pay for the very basics like food, housing, medical care, and heating? Would you say it is:: Not hard at all Do you want help finding or keeping work or a job?: I do not need or want help If for any reason you need help with day-to-day activities such as bathing, preparing meals, shopping, managing finances, etc., do you get the help you need?: I don?t need any help How often do you feel lonely or isolated from those around you?: Never Do you speak a language other than [place] at home?: No Does the patient want assistance with any of the above?: No
[2024-09-01] MEDS: Colestipol 1 GM TAB PO (09:38)
[2024-09-01 09:41] VITALS: BP 115/63; PULSE 68; RESP 18; TEMP 36.5; O2SAT 94
--- NOTE | 2024-09-01 09:42 | DSE_ITS ---
Date of service: 09/01/24 Time of Service: 09:42 DS: Diagnosis Discharge Diagnosis (1) Syncope: Status: Acute (2) Hypoxia: Status: Acute (3) UTI (urinary tract infection): Status: Acute (4) Hypomagnesemia: Status: Acute (5) Cardiomyopathy: Status: Chronic (6) Hypertensive kidney disease with CKD stage IV: Status: Chronic (7) CKD (chronic kidney disease) stage 4, GFR 15-29 ml/min: Status: Chronic (8) HTN (hypertension): Status: Chronic (9) Hypothyroidism: Status: Chronic Discharge Plan Disposition Patient Disposition: Home Condition: Good Discharge Details Reason For Visit: Syncope, Hypoxemia, UTI Admit Date/Time: 08/31/24 02:45 Admit Provider: Regan Monteiro Attending Provider: Regan Monteiro Primary Care Provider: Lexus Lawson Hospital Course Hospital Course: Patient initially presented for episodes of syncope that were determined to be secondary to a subacute diarrhea, as well as taking multiple antihypertensives. While hospitalized, Elvis called with the results of her colonoscopy which showed a leukocytic colitis and recommended initiation of 7-day steroid treatment. Additionally, patient went had acute hypoxic respiratory failure which lung exam showed maybe some emphysematous changes though the patient does not have any diagnosis of COPD. She states she was a smoker but quit about 20 years ago. Because of this, does recommend the patient have outpatient pulmonary function tests, but due to the initiation of steroids for her colitis, her respiratory status significantly improved and no longer required supplemental oxygen. Patient was ambulated around the unit on the morning of discharge and did not have any lightheadedness dizziness or shortness of breath, therefore was determined to be stable for discharge home. PCP Follow-up: -holding amlodipine and hyradlizine, consider restarting based on office visit BPs -rec PFTs given findings on lung imaging and acute hypoxic respiratory failure during hospitalization Home Meds and New Rx's Prescriptions: New budesonide 3 mg Capsule,Delayed,Extend.Release 9 mg PO DAILY Qty: 5 0RF Continued trazodone 300 mg tablet 150 - 300 mg PO QHS Qty: 90 3RF melatonin 10 mg capsule 10 mg PO HS PRN loperamide 2 mg capsule See Rx Instructions PO DAILY PRN (Reason: diarrhea) Qty: 135 0RF Rx Instructions: Take 2 cap PO QAM and 1 cap Q other PM for diarrhea colestipol 1 gram tablet 1 g PO BID Patient Comments: chronic diarrhea gabapentin 300 mg capsule 300 mg PO BID Qty: 180 0RF Rx Instructions: Dose increased 08/25/2024 levothyroxine 50 mcg tablet See Rx Instructions .ROUTE .COMPLEX Qty: 90 3RF Dose Instruction: TAKE 1 TABLET BY MOUTH ONCE DAILY Rx Instructions: TAKE 1 TABLET BY MOUTH ONCE DAILY aspirin [Aspir-81] 81 MG tablet,delayed release (DR/EC) 81 mg PO DAILY potassium chloride [Klor-Con M20] 20 mEq tablet,ER particles/crystals 20 meq PO DAILY isosorbide dinitrate 20 mg tablet 20 mg PO TID Qty: 300 6RF Rx Instructions: per [facility] [place] d/c 01/21/19 mecobalamin (vitamin B12) 1,000 mcg tablet,chewable 1,000 mcg PO DAILY Qty: 90 3RF Rx Instructions: B12 deficiency--ok to substitute or purchase OTC carvedilol 12.5 mg tablet See Rx Instructions .ROUTE .COMPLEX Qty: 180 3RF Dose Instruction: TAKE ONE TABLET BY MOUTH TWICE A DAY Rx Instructions: TAKE ONE TABLET BY MOUTH TWICE A DAY atorvastatin 20 mg tablet See Rx Instructions .ROUTE .COMPLEX Qty: 90 3RF Dose Instruction: TAKE ONE TABLET BY MOUTH AT BEDTIME Rx Instructions: TAKE ONE TABLET BY MOUTH AT BEDTIME furosemide 20 mg tablet See Rx Instructions .ROUTE .COMPLEX Qty: 180 3RF Dose Instruction: TAKE 1 TABLET BY MOUTH EVERY MORNING AND AT 4 P.M Rx Instructions: TAKE 1 TABLET BY MOUTH EVERY MORNING AND AT 4 P.M Held amlodipine 5 mg tablet See Rx Instructions .ROUTE .COMPLEX Qty: 90 3RF Hold Instructions: Resume on 09/15/24. hold until seen by PCP Dose Instruction: TAKE ONE TABLET BY MOUTH EVERY DAY Rx Instructions: TAKE ONE TABLET BY MOUTH EVERY DAY hydralazine 25 mg tablet 25 mg PO TID Qty: 300 7RF Hold Instructions: Resume on 09/15/24. hold until seen by PCP Rx Instructions: per [facility] d/c 01/21/19 Discharge Instructions Activity:: Activity as Tolerated Equipment/Supplies:: No Equipment Needed Diet:: As Tolerated Discharge Orders Discharge Orders: Discharge Order (Routine); Ordered 09/01/24 Ordered By: Angel Santiago DS: Summary Time Spent with Patient providing and/or coordinating discharge services: Greater than 30 minutes Status at Discharge Functional status at discharge: independent ambulation Overall status at discharge: patient is back to baseline Mental Status: mental status grossly normal Speech and Movement: speech and movement normal Mood: congruent mood Affect: normal affect Quality:SDOH Health Related Social Needs: No Data to Display Exam Narrative Exam Narrative: Well-appearing older female sitting up in the chair no acute distress, ANO x 4, heart regular rhythm, lungs clear to auscultation bilaterally, abdomen soft, nontender, nondistended Psych Mental Status: mental status grossly normal Speech and Movement: speech and movement normal Mood: congruent mood Affect: normal affect DS: Data Vitals/I&O Vitals and I&O: Vital Signs Temperature 97.7 F 09/01/24 09:41 Temperature Source Temporal Artery Scan 09/01/24 09:41 Pulse 68 09/01/24 09:41 Pulse 69 08/31/24 03:10 Respiratory Rate 18 09/01/24 09:41 Respiratory Effort Normal, Non-Labored 08/31/24 03:43 Respiratory Depth Normal 08/31/24 03:43 Respiratory Pattern Normal 08/31/24 03:43 Blood Pressure 115/63 09/01/24 09:41 Blood Pressure Mean 80 09/01/24 09:41 Blood Pressure Position Sitting 08/30/24 21:16 Pulse Oximetry 94 09/01/24 09:41 Oxygen Delivery Method Room Air 09/01/24 09:41 Oxygen Flow Rate 0 09/01/24 09:41 Fraction of Inspired Oxygen (FIO2) 24 08/31/24 08:41 Pain Level 0 09/01/24 07:01 Comment RN notified 08/31/24 15:11 Comment PT put on 2 L NC 08/30/24 22:50 Intake & Output 08/31/24 09/01/24 09/01/24 17:59 05:59 17:59 Intake Total 300 / 300 280 / 580 550 / 550 Output Total 600 / 600 1000 / 1600 600 / 600 Balance -300 / -300 -720 / -1020 -50 / -50 Weight 89 lb 15.178 oz Intake: IV 80 / 80 Oral 300 / 300 200 / 500 550 / 550 Output: Urine 600 / 600 1000 / 1600 600 / 600 Other: Urine Color Yellow Yellow Yellow Urine Appearance Clear Clear Urine Odor None Normal Stool Size Large Stool Characteristics Soft Liquid Data Completed and Pending Labs on day of discharge: Labs from last 24 hours 09/01/24 06:25: WBC 28.28 H*, RBC 3.57 L, Hgb 9.7 L, Hct 29.2 L, MCV 82, MCH 27.2, MCHC 33.2, RDW 15.8 H, Plt Count 162, MPV 11.3 H, Sodium 135 L, Potassium 4.6, Chloride 100, Carbon Dioxide 25.3, Anion Gap 9.7, BUN 39 H, Creatinine 2.6 H, Est GFR (CKD-EPI 2020) 18.67, Glucose 132 H, Calcium 8.7, Magnesium 2.6 H, Total Bilirubin 0.4, AST 19, ALT 11 L, Alkaline Phosphatase 81, Total Protein 6.4, Albumin 2.6 L 08/31/24 01:25 Urine - Reflex from Ua Urine Culture - Pending Preliminary micro results at discharge 08/31/24 01:25 Urine - Reflex from Ua Urine Culture - Pending PFSH All Active Problems (Updated 09/01/24 @ 09:41 by Angel Santiago MD) UTI (urinary tract infection) (Acute) Hypomagnesemia (Acute) HTN (hypertension) (Chronic) Hypoxia (Acute) Syncope (Acute) Normochromic normocytic anemia (Acute ~02/2024) Irritable bowel syndrome with both constipation and diarrhea (Acute ~11/2023) [facility] GI-12/08/23 Middle insomnia (Chronic) RX Trazodone Steatorrhea (Acute) Pararenal abdominal aortic aneurysm (AAA) without rupture (Acute) [facility] [place] Vascular 06/24/23 Hypertensive kidney disease with CKD stage IV (Chronic ~01/2021) 06/25/21 [facility] [place] Nephrology note Asymmetrical sensorineural hearing loss (Chronic ~2018) Cervical spondylosis (Acute 08/24/07) 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 Hep B in 2012 Osteopenia (Acute 11/18/12) DEXA 10/2012; T -1.2 at hip DEXA 05/02/14; T -2.0 hip Renal artery stenosis (Chronic ~2018) (R) > (L) (R) YING bypass graft 09/12 Hypothyroidism (Chronic) Gastro-esophageal reflux disease without esophagitis (Chronic ~11/2018) EGD @ [facility] 8/22/19 CKD (chronic kidney disease) stage 4, GFR 15-29 ml/min (Chronic) G4/A3; [facility] Nephro Cardiomyopathy (Chronic ~2019) Cardiology LVEF 59% on 06/16; 55-60% 01/2022 ECHO Chronic diarrhea (Chronic ~2019) Secondary hyperparathyroidism (Chronic) CKD Syncope (Acute ~01/2022) Presumed orthostasis B12 deficiency (Chronic) Medical History (Updated 09/01/24 @ 09:41 by Angel Santiago MD) Biceps tendinitis of right shoulder Right clavicle fracture (~06/30/22) AMS (altered mental status) Transient neurologic deficit Shingles BCC (basal cell carcinoma), face (07/05/20) 05/14/20 right nasal ala- shave biopsy. Basal Cell Ca, moved to hx and BCC to problem list. Neoplasm 05/14/20 right nasal ala- shave biopsy. Basal Cell Ca, moved to hx and BCC to problem list. 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 3.7cm 01/04/16- ultrasound 3.2 cm 01/04/16-Abd US 3.2 cm diameter 07/2015 - 3.5 cm rechecked 01/01/18 note 04/18/20 substantial increase in last 6 mos, CTA ordered Hepatitis B (02/24/13) Dr Watt [facility] Pt. states she revieved treatment Surgical History History of aortic aneurysm repair Vascular surgery Posterior subcapsular age-related cataract, right eye Nuclear sclerotic cataract of right eye Posterior subcapsular age-related cataract of left eye Nuclear sclerotic cataract of left eye History of intestinal surgery History of AAA (abdominal aortic aneurysm) repair (~10/01/21) 10/01/21 [facility] [place] Vascular Status post Mohs surgery (07/05/20) right nasal ala for BCC S/P exploratory laparotomy (~03/2020) 04/24/20 [facility] with lysis of adhesions Status post surgery (09/07/18) right external iliac to right renal artery bypass with reversed rifht greater saphenous vein, [facility] Hysterectomy, Laproscopic (~03/1984) EGD W/ BS (08/12/12) DR CANCHOLA Colonoscopy - MAC (09/27/12) DR CANCHOLA, REPEAT 10 YRS. Bilateral salpingectomy with oophorectomy Family History Grandmother Essential hypertension Mother , age 68 of ovarian cancer Ovarian cancer Father , age 60 of emphysema Emphysema lung Smoker Sister Essential hypertension Brother , age 34 of suicide Suicide Son No problems noted. Daughter No problems noted. Other Abdominal aortic aneurysm (AAA) without rupture Social History Smoking/Tobacco Use Status: Former Tobacco Use Quit Date: 04/27/08 Tobacco: How many years used: 45 Smoking risk assessment performed?: Yes Alcohol Intake: current Alcohol Intake frequency: holidays/special occasions only Alcohol type: wine Drug use: Never Substance use type: does not use Caregiver/Support person: Yes Foster care: No Household members: spouse Housing: house Number of Children: 2 number of grandchildren: 3 Communication Needs: Corrective Lenses Education Level: college Do you need help understanding health information?: Rarely 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, 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 Pets and animals: Yes Current gender identity: female What is your relationship status?: How often do you talk on the phone with friends or family?: three or more times per week How often do you get together with friends or relatives?: once per week Panel score (0-1 are the most socially isolated patients): 2 What type of physical activity do you participate in: none Special yanira needs: No Agree to transfusion: Yes Seatbelt use: always Drive intox or ride w/intox special needs bus driver: No Working smoke detector in home: Yes Fire extinguisher in home: Yes Carbon monox detector in home: Yes Do you feel safe at home: Yes Do you feel safe in your relationship?: Yes Time Spent with Patient Time Spent with Patient: <45 minutes Time was spent: preparing to see the patient(eg.review tests), obtaining and/or reviewing separately otained hiistory, ordering medications,tests, procedures, referring, communicating with other health insurance healthcare representative, indepentently interpreting results, counseling the patient and care coordination
--- NOTE | 2024-09-01 15:01 | PDOC.CMDIS ---
Date of service: 09/01/24 Time of Service: 15:01 LACE Index Scoring Tool Questions: Length of Stay (in days): 1 Was the patient admitted via the E.D.?: Yes Comorbidities: Congestive Heart Failure, Chronic Pulmonary Disease and Liver or Renal Disease E.D. Visits: 1 Answers: Total Score: 10 Risk of Readmission: High Risk Care Management Discharge Plan Reason for Hospitalization: syncope Discharge Plan: Charlene will be discharged home with no new services. She will follow up with her community providers and plan of care and transport with family. Patient/Family Education Needs: Review discharge instructions, limitations, follow up plan and discuss Ask Me Three [facility] Health Related Social Needs: No Data to Display
== END 2024-09-01 10:42 | disposition home or self-care (01) | DRG 689 ==
LOC: ER 08-31 02:57 → MS 08-31 03:37
PROVIDERS: Admitting Provider Family Medicine; Emergency Provider Emergency Medicine; PCP Nurse Practitioner Adult Health; Responsible Provider Family Medicine; Visit Provider Family Medicine
DX: N39.0 Urinary tract infection, site not specified (principal); J96.01 Acute respiratory failure with hypoxia; I42.9 Cardiomyopathy, unspecified; N18.4 Chronic kidney disease, stage 4 (severe); N25.81 Secondary hyperparathyroidism of renal origin; R55 Syncope and collapse; T46.5X5A Adverse effect of other antihypertensive drugs, initial encounter; E83.42 Hypomagnesemia; E03.9 Hypothyroidism, unspecified; Z79.899 Other long term (current) drug therapy; W19.XXXA Unspecified fall, initial encounter; D64.9 Anemia, unspecified; Z95.828 Presence of other vascular implants and grafts; D53.8 Other specified nutritional anemias; K21.9 Gastro-esophageal reflux disease without esophagitis; I70.1 Atherosclerosis of renal artery; M85.859 Other specified disorders of bone density and structure, unspecified thigh; K74.69 Other cirrhosis of liver; R79.1 Abnormal coagulation profile; I12.9 Hypertensive chronic kidney disease with stage 1 through stage 4 chronic kidney disease, or unspecified chronic kidney disease; Z87.891 Personal history of nicotine dependence; K58.2 Mixed irritable bowel syndrome
CPT/HCPCS: 00123; 36415; 71250; 78582; 80053; 80307; 82805; 83690; 85027; 87077; 87637; 93005; 96365; 96375; 97162; 97530; 99285; J1650; 70450; 71045; 80320; 81003; 81015; 82140; 83605; 83735; 83880; 84439; 84443; 84484; 85025; 85379; 85610; 87086; 87186; 93010; 93306; 94760; 99223; 99239; J0696; J2405; J3475

== ENCOUNTER → 2024-10-14 13:39 | Outpatient (BNVA) | payer MEDICARE, BC, SELFPAY | PROVIDERS: PCP Nurse Practitioner Adult Health; Referring Provider Nurse Practitioner Adult Health; Visit Provider Internal Medicine Cardiovascular Disease | DX: I12.9 Hypertensive chronic kidney disease with stage 1 through stage 4 chronic kidney disease, or unspecified chronic kidney disease (principal); N18.4 Chronic kidney disease, stage 4 (severe) | CPT/HCPCS: 99213 ==

== ENCOUNTER 2024-11-22 02:58 | Outpatient (CLI) | payer MEDICARE, BC, SELFPAY ==
--- NOTE | 2024-11-22 07:15 | DI.MAMMO_ITS ---
Exam(s) MAMMO DIAGNOSTIC UNI EXAM: MAMMO DIAGNOSTIC UNI-LEFT CLINICAL HISTORY: interval F/U on LEFT, probably benign finding, R92.8. TECHNIQUE: Unilateral LEFT BREAST CC AND MLO MAMMOGRAPHIC images were obtained with 3D tomosynthesis technique and utilizing computer aided detection (CAD). COMPARISON: Prior mammograms were reviewed, the most recent being April 2024.. Prior ultrasound of April 2024 was also reviewed. FINDINGS: There has been no significant change in the appearance and distribution of the fibroglandular tissue of the left breast. Previously described findings remain unchanged and benign appearance (and indeed there were no significant findings on complete left breast ultrasound performed in April 2024). There are no new spiculated masses in the left breast and there are no malignant-appearing microcalcification groups. There is no new significant architectural distortion or skin thickening-retraction IMPRESSION: No radiographic evidence of malignancy in the left breast Appropriate follow-up is to keep this patient on her yearly mammogram schedule, this implying that her next bilateral mammogram would be in 6 months from now, with earlier imaging if a self detected breast change is noted.. The patient was informed of the findings and follow-up recommendations by myself prior to leaving the department today. BI-RADS Category 2 - Benign Findings Breast Density - Category C - The breast are heterogeneously dense, which may obscure small masses. Breast density Category C or D implies that the patient has dense breast tissue. Dense breast tissue can make it harder to find cancer on a mammogram. Dense breast tissue is also associated with an increased risk of breast cancer. This information about the result of the mammogram report was provided to the patient to raise their awareness. Use this report when you speak with the patient about their risks for breast cancer, which includes their family history. At that time, you may recommend additional screening tests (Ultrasound or MRI) as these tests may add significant information. A negative radiographic report should not delay biopsy if a dominant or clinically suspicious mass is present. Up to ten percent of cancers are not identified on mammography. A negative report may reinforce clinical impression. Adenosis and dense breasts may obscure an underlying neoplasm. False positive reports average 6 to 10%. Patient will receive a letter notifying them of these results.
== END 2024-11-22 03:18 ==
LOC: DI 02:58
PROVIDERS: PCP Nurse Practitioner Adult Health; Visit Provider Nurse Practitioner Adult Health
DX: Z12.31 Encounter for screening mammogram for malignant neoplasm of breast (principal); R92.322 Mammographic fibroglandular density, left breast
CPT/HCPCS: 77061; 77065; G0279

== ENCOUNTER 2025-01-26 04:00 | Outpatient (CLI) | payer MEDICARE, BC, SELFPAY | END 2025-01-26 04:01 | disposition home or self-care (01) | LOC: LBO 04:00 | PROVIDERS: PCP Nurse Practitioner Adult Health; Referring Provider Nurse Practitioner Adult Health; Visit Provider Nurse Practitioner Adult Health | DX: Z00.00 Encounter for general adult medical examination without abnormal findings (principal) | CPT/HCPCS: 36415; 86765 ==

== ENCOUNTER 2025-02-13 03:45 | Outpatient (CLI) | payer MEDICARE, BC, SELFPAY ==
[2025-02-13 09:50] LABS: HCT 34.8 % (36.0-46.0); HGB 10.9 g/dL (11.2-15.7); MCH 24.2 pg (27.0-33.0); MCHC 31.3 % (32.0-36.0); MPV 9.6 fL (8.0-11.0); Platelet Count 168 10^3/uL (130-400); RBC 4.51 10^6/uL (3.93-5.22); RDW 20.6 % (11.7-14.6); RDW-SD 57.7 fL; WBC 5.53 10^3/uL (4.4-10.8)
[2025-02-13 10:01] LABS: Hemoglobin A1C 5.9 % (<5.7)
[2025-02-13 10:23] LABS: MCV 77 fL (80-95)
[2025-02-13 11:18] LABS: ALT 23 U/L (14-59); AST 23 U/L (15-37); Albumin 3.0 g/dL (3.4-5.0); Alkaline Phosphatase 83 U/L (46-116); Anion Gap 10.3 mmol/L (3-11); BUN 24 mg/dL (7-18); Bilirubin, Total 0.4 mg/dL (0.2-1.0); CO2 27.7 mmol/L (21.0-32.0); Calcium 8.4 mg/dL (8.5-10.1); Calculated LDL 71 mg/dL (<100); Chloride 99 mmol/L (98-107); Cholesterol 113 mg/dL (<200); Estimated GFR 23.97 (mL/min/1.73m2); Glucose 98 mg/dL (74-106); HDL Cholesterol 25 mg/dL (>or=50); Magnesium 2.2 mg/dL (1.8-2.4); Potassium 3.5 mmol/L (3.5-5.1); Sodium 137 mmol/L (136-145); TSH (W/Ref FT4) 2.48 uIU/mL (0.36-3.74); Total Protein 7.3 g/dL (6.4-8.2); Triglyceride 86 mg/dL (<150); Vitamin B12 768 pg/mL (193-986)
[2025-02-14 09:24] LABS: Prealbumin 10 mg/dL (20-40)
== END 2025-02-13 03:46 | disposition home or self-care (01) ==
LOC: LBO 03:45
PROVIDERS: PCP Nurse Practitioner Adult Health; Referring Provider Nurse Practitioner Adult Health; Visit Provider Nurse Practitioner Adult Health
DX: E53.8 Deficiency of other specified B group vitamins (principal); E03.9 Hypothyroidism, unspecified; K52.9 Noninfective gastroenteritis and colitis, unspecified; K74.60 Unspecified cirrhosis of liver; N18.4 Chronic kidney disease, stage 4 (severe); G47.00 Insomnia, unspecified; R63.4 Abnormal weight loss; R73.01 Impaired fasting glucose; D64.9 Anemia, unspecified
CPT/HCPCS: 36415; 80053; 80061; 85027; 82607; 83036; 83735; 84134; 84443

== ENCOUNTER → 2025-04-14 13:21 | Outpatient (CLI) | payer MEDICARE, BC, SELFPAY ==
--- NOTE | 2025-04-14 13:42 | DI.RAD_ITS ---
Exam(s) XR STERNUM EXAM: XR STERNUM CLINICAL HISTORY: eval fx R07.89 CHEST PAIN. TECHNIQUE: 2D digital imaging was performed. COMPARISON: CR,XR XR PORTABLE CHEST AP from 08/30/2024 FINDINGS: BONES: No acute fracture is present. No bony destructive lesion is seen. JOINTS: No dislocation present. SOFT TISSUE: There is a stent again seen in the descending thoracic aorta. IMPRESSION: No acute abnormality is identified. DATA REPOSITORY: RADIATION DOSE DELIVERED:
--- NOTE | 2025-04-14 13:55 | DI.RAD_ITS ---
Exam(s) XR CERVICAL SPINE COMP 4-5V EXAM: XR CERVICAL SPINE COMP 4-5V CLINICAL HISTORY: eval pathology M54.2 CERVICALGIA NECK PAIN. TECHNIQUE: 2D digital imaging was performed. Five images were obtained. AP, odontoid, lateral and bilateral oblique images were obtained. COMPARISON: MR MR ANGIO NECK WO from 02/24/2022 CR XR THORACIC SPINE COMPLETE from 03/10/2022 FINDINGS: The odontoid is intact. The lateral masses are well aligned. The bones are osteopenic. There is disc space narrowing at C3-4 and C4-C5. There is unchanged retrolisthesis of C3 on C4. There osteophytes seen at multiple levels of the cervical spine. No acute fracture or subluxation is present. There are degenerative changes of the facets at multiple levels of the cervical spine. There is mild narrowing of the neural foramen bilaterally at C3-4. The cervical thoracic junction is well maintained. The prevertebral soft tissues are unremarkable. Lung apices are clear. IMPRESSION: [id number] degenerative changes in the cervical spine. Stable alignment of the cervical spine. DATA REPOSITORY: RADIATION DOSE DELIVERED:
--- NOTE | 2025-04-14 14:00 | DI.RAD_ITS ---
Exam(s) XR SHOULDER RT COMPLETE 2+V EXAM: XR SHOULDER RT COMPLETE 2+V CLINICAL HISTORY: eval [id number] PAIN RT SHOULDER. TECHNIQUE: 2D digital imaging was performed of the right shoulder. Four images were obtained. AP, Grashey, Y-view and axillary views were obtained. COMPARISON: CR XR CLAVICLE RT from 10/01/2022 FINDINGS: BONES: No acute fracture is present. No bony destructive lesion is seen. There is an old right clavicular fracture deformity. JOINTS: No dislocation present. SOFT TISSUE: Normal. IMPRESSION: There is no acute abnormality. DATA REPOSITORY: RADIATION DOSE DELIVERED:
== END ==
LOC: DI 13:22
PROVIDERS: PCP Nurse Practitioner Adult Health; Visit Provider Nurse Practitioner Family
DX: R07.89 Other chest pain (principal); M54.2 Cervicalgia; M25.511 Pain in right shoulder
CPT/HCPCS: 71120; 72050; 73030